=== PATIENT | male | born 1965 | race Caucasian/White ===

== ENCOUNTER 2019-05-13 12:44 | Observation (INO) | payer OTHER ==
[2019-05-13] MEDS ORDERED: METOPROLOL TAR 25 MG TAB ONE (13:01)
[2019-05-13] MEDS ORDERED: ENOXAPARIN 100 MG/ML SYR SQ ONE (13:01)
[2019-05-13] MEDS ORDERED: ASPIRIN 81 MG CHEWABLE TABLET ONE (13:01)
[2019-05-13 13:21] LABS: Absolute Lymphocytes (CBC) 3.1 K/uL (0.7-4.9); Basophils % 1.3 % (0-1.3); Hematocrit 39.3 % (39.6-49.0); Lymphocytes % 36.8 % (15.3-44.8); MPV 8.1 fL (7.6-11.3); RBC Red Blood Cell Count 4.89 M/uL (4.33-5.43)
[2019-05-13 13:28] LABS: Protime INR 0.94
[2019-05-13 13:45] LABS: ALT/SGPT 43 U/L (12-78); AST/SGOT 28 U/L (15-37); Albumin 2.9 g/dL (3.4-5.0); Alkaline Phosphatase 149 U/L (45-117); BUN Blood Urea Nitrogen 31 mg/dL (7-18); Bicarbonate 26 mmol/L (21-32); Bilirubin Direct < 0.1 mg/dL (0-0.2); Bilirubin Total 0.3 mg/dL (0.2-1.0); Lipase 396 U/L (73-393); NT PRO-BNP 394 pg/mL (<125); Potassium 4.8 mmol/L (3.5-5.1); Protein, Total 6.4 g/dL (6.4-8.2); Sodium Level 134 mmol/L (136-145); Troponin (Emerg Dept Use Only) < 0.02 ng/mL (0.0-0.045)
[2019-05-13 13:48] LABS: Glucose Level 439 mg/dL (74-106)
--- NOTE | 2019-05-13 13:50 | RAD REPORT ---
EXAM DESCRIPTION: RAD - Chest Single View - 05/13/2019 1:17 pm CLINICAL HISTORY: Chest pain COMPARISON: None. TECHNIQUE: AP portable chest image was obtained 1307 hours . FINDINGS: Lungs are clear. Heart and vasculature are normal. No measurable pleural effusion and no p neumothorax. No acute bony abnormality seen. No acute aortic findings suspected. IMPRESSION: No acute cardiopulmonary process.
--- NOTE | 2019-05-13 13:56 | RAD REPORT ---
EXAM DESCRIPTION: CT - Ct Stroke Brain Wo Cont - 05/13/2019 1:29 pm CLINICAL HISTORY: Stroke protocol study, left arm numbness and tingling CLINICAL HISTORY: None. TECHNIQUE: Axial 5 millimeter thick images of the head were obtained without IV contrast. All CT scans are performed using dose optimization technique as appropriate and may include automated exposure control or mA/KV adjustment according to patient size. FINDINGS: No intracranial hemorrhage, mass, or cerebral edema. No acute infarction identifiable. No cortical edema or sulcal effacement. Dias matter-white matter differentiation is preserved. Asymmetry is created by head tilt. There is no significant atrophy or chronic ischemic change seen. Visualized portions of the mastoid air cells, paranasal sinuses, and orbits are unremarkable. Findings telephoned to doctor Fung 1:50 p.m.. IMPRESSION: No CT evidence of acute intracranial process.
--- NOTE | 2019-05-13 14:03 | ER ---
Nurse's Notes [facility] Name: Douglas Carrillo Age: 53 yrs Sex: Male : 1965 Arrival Date: 05/13/2019 Time: 12:45 Bed 8 Private MD: Diagnosis: Other chest pain;Type 1 diabetes mellitus-uncontrolled;Essential (primary) hypertension Presentation: 05/13 12:45 Presenting complaint: Patient states: HEAVY SUBSTERNAL CHEST PAIN WITH LUE NUMBNESS AND bp FATIGUE. Transition of care: patient was not received from another setting of care. Onset of symptoms was May 13, 2019 at 12:00. Risk Assessment: Do you want to hurt yourself or someone else? Patient reports no desire to harm self or others. Initial Sepsis Screen: Does the patient meet any 2 criteria? No. Patient's initial sepsis screen is negative. Does the patient have a suspected source of infection? No. Patient's initial sepsis screen is negative. Care prior to arrival: None. 12:45 Method Of Arrival: Wheelchair bp 12:45 Acuity: EMMANUEL 2 bp 13:15 An acute neurological deficit is present. Pre-hospital glucose is not applicable to aa5 this patient. Triage Assessment: 13:10 The onset of the patients symptoms was May 13, 2019 at 12:15. aa5 Stroke Activation: Symptom onset < 3 hours Physician: Stroke Attending; Name: ; Notified At: ; Arrived At: Physician: Chief Stroke Resident; Name: ; Notified At: ; Arrived At: Physician: Stroke Resident; Name: ; Notified At: ; Arrived At: Physician: ED Attending; Name: ; Notified At: ; Arrived At: Physician: ED Resident; Name: ; Notified At: ; Arrived At: Historical: - Allergies: 12:48 Sulfa (Sulfonamide Antibiotics); bp - Home Meds: 12:48 Nifedipine Oral [Active]; carvedilol oral oral [Active]; bp - PMHx: 12:48 Diabetes - IDDM; Hypertension; CVA; bp - PSHx: 13:15 L BKA; R transmetatarsal amputation; aa5 - Immunization history:: Adult Immunizations up to date. - Social history:: Smoking status: Patient/guardian denies using tobacco. - Ebola Screening: : No symptoms or risks identified at this time. - Family history:: not pertinent. Screenin:12 Abuse screen: Denies threats or abuse. Nutritional screening: No deficits noted. aa5 Tuberculosis screening: No symptoms or risk factors identified. Fall Risk Secondary diagnosis (15 points) impaired mobility, IV access (20 points). Total Rodriguez Fall Scale indicates Low Risk Score (25-44 pts). Fall prevention measures have been instituted. Side Rails Up X 2 Placed close to Nursing Station. Assessment: 13:15 VAN Scoring: Arm Drift: Patients demonstrates NO arm weakness. Patient is VAN Negative. aa5 13:15 Patient has been NPO before screening. The patient is alert, and able to follow aa5 commands. The patient does not exhibit slurred or garbled speech. The patient is not exhibiting difficulty speaking. The patient does not exhibit difficulty understanding words. The patient is able to swallow own secretions with no drooling or need for suction. Patient tolerated one teaspoon of water. No drooling, immediate coughing, gurgling, or clearing of the throat was noted. The patient tolerated 90mL of water. No drooling, immediate coughing, gurgling, or clearing of the throat was noted. The patient passed the bedside swallow screening. Oral medications may be given as ordered. Contact Physician for further diet orders. Provider notified of bedside swallow screening results: Delvis Fung MD. 13:15 General: Appears comfortable, Behavior is calm, cooperative. Pain: Complains of pain in aa5 mid-sternal area Pain does not radiate. Pain currently is 5 out of 10 on a pain scale. Quality of pain is described as sharp, Pain began 1 hour ago. Is continuous. Neuro: Level of Consciousness is awake, alert, obeys commands, Oriented to person, place, time, situation, Property Economist are equal bilaterally Moves all extremities. Speech is normal, Facial symmetry appears normal, Pupils are PERRLA, Tingling in left arm Numbness in left arm Since 30 minutes DEPUTY HEAD. . Cardiovascular: Heart tones S1 S2 present Rhythm is regular. Respiratory: Airway is patent Respiratory effort is even, unlabored, Respiratory pattern is regular, symmetrical. GI: Abdomen is round non-distended, Bowel sounds present X 4 quads. Abd is soft and non tender X 4 quads. Patient currently denies nausea, vomiting. : No signs and/or symptoms were reported regarding the genitourinary system. EENT: No signs and/or symptoms were reported regarding the EENT system. Derm: Skin is pink, warm \T\ dry. Musculoskeletal: L BKA noted and R transmetatarsal amputation noted with walking boot to right foot and left leg prosthesis noted. 13:25 Reassessment: back from CT VIA wheelchair. Patient reports that his symptoms seems to ss have improved. Reports mild tingling in R arm and mild Chest pain. 13:58 T-PA (Activase) Screening: Contraindications: Other: CT head negative for intracranial aa5 hemorrhage per Dr. Fung Rapidly improving condition or minor deficit: Yes. 14:30 Reassessment: Patient appears in no apparent distress at this time. No changes from tw2 previously documented assessment. Patient and/or family updated on plan of care and expected duration. Pain level reassessed. Patient is alert, oriented x 3, equal unlabored respirations, skin warm/dry/pink. 15:30 Reassessment: Patient is alert, oriented x 3, equal unlabored respirations, skin aa5 warm/dry/pink. Awaiting room assignment at this time. . Vital Signs: 12:48 BP 128 / 77; Pulse 85; Resp 16; Temp 98; Pulse Ox 97% ; Weight 93.89 kg; Height 6 ft. bp (182.88 cm); 13:50 BP 131 / 75; Pulse 78; Resp 17; Pulse Ox 98% on R/A; tw2 14:29 BP 155 / 121; Pulse 78; Resp 17; Pulse Ox 95% on R/A; tw2 14:45 BP 140 / 78; Pulse 79; Resp 17; Pulse Ox 95% on R/A; tw2 15:45 BP 125 / 76; Pulse 75; Resp 16 S; Temp 98.0(TE); Pulse Ox 97% on R/A; Pain 0/10; aa5 12:48 Body Mass Index 28.07 (93.89 kg, 182.88 cm) bp NIH Stroke Scale Scores: 13:15 NIHSS Score: 1 aa5 ED Course: 12:45 Patient arrived in ED. as 12:47 Triage completed. bp 12:48 Arm band placed on. bp 12:52 Delvis Fung MD is Attending Physician. vin 12:59 Marta Bee, RN is Primary Nurse. aa5 12:59 EKG done, by technical sales representatives. reviewed by Delvis Fung MD. at1 13:10 Patient has correct armband on for positive identification. Bed in low position. Call aa5 light in reach. Side rails up X2. compliance monitor on. Pulse ox on. NIBP on. 13:12 Initial lab(s) drawn, by me, sent to lab. Inserted saline lock: 20 gauge in right aa5 antecubital area, using aseptic technique. Blood collected. 13:17 XRAY Chest (1 view) In Process Unspecified. EDMS 13:30 CT Stroke Brain w/o Contrast In Process Unspecified. EDMS 14:01 Palmer Ho DO is Hospitalizing Provider. vin 16:19 No provider procedures requiring assistance completed. Patient admitted, IV remains in aa5 place. Administered Medications: 13:15 Drug: Aspirin Chewable Tablet 324 mg Route: PO; aa5 14:21 Follow up: Response: No adverse reaction aa5 14:00 Drug: Lopressor 25 mg Route: PO; aa5 14:21 Follow up: Response: No adverse reaction aa5 14:00 Drug: Lovenox 1 mg/kg Route: Sub-Q; Site: right lower abdomen; aa5 14:21 Follow up: Response: No adverse reaction aa5 14:20 Drug: Insulin Regular Human 10 units {Co-Signature: valerie (Pauline Walters RN).} Route: Sub-Q; aa5 Site: right upper arm; 14:21 Drug: Insulin Regular Human 10 units {Co-Signature: valerie (Pauline Walters RN).} Route: IVP; aa5 Site: right antecubital; Point of Care Testing: Blood Glucose: 13:15 Blood Glucose: 435 mg/dL; aa5 Ranges: Outcome: 14:01 Decision to Hospitalize by Provider. vin 16:19 Admitted to Tele accompanied by tech, via wheelchair, with chart. aa5 16:19 Condition: stable 16:19 Instructed on the need for admit, Demonstrated understanding of instructions. 16:22 Patient left the ED. aa5 NIH Stroke Scale - NIH Stroke Score Date: 05/13/2019 Time: 13:15 Total Score = 1 1a. Level of Consciousness (LOC) - 0(Alert) 1b. Level of Consciousness (LOC) (Year \T\ Age) - 0(Both) 1c. LOC Commands (Open \T\ Closes Eyes/Lumber Mover) - 0(Both) 2. Best Gaze (Lateral Gaze Paresis) - 0(Normal) 3. Visual Field Loss - 0(No visual loss) 4. Facial Palsy - 0(Normal) 5a. Left Arm: Motor (10-second hold) - 0(No drift) 5b. Right Arm: Motor (10-second hold) - 0(No drift) 6a. Left Leg: Motor (5-second hold - always test supine) - 0(No drift) 6b. Right Leg: Motor (5-second hold - always test supine) - 0(No drift) 7. Limb Ataxia (finger/nose \T\ heel/gonzalez - test with eyes open) - 0(Absent) 8. Sensory Loss (pinprick arms/legs/face) - 1(Mild to moderate loss) 9. Best Language: Aphasia (description/naming/reading) - 0(No aphasia) 10. Dysarthria (speech clarity - read or repeat words) - 0(Normal) 11. Extinction and Inattention (visual/tactile/auditory/spatial/personal) - 0(No abnormality) Initials: aa5 Signatures: Dispatcher [employer] EDMS Delvis Fung MD MD cha Martinez, Amelia as Calderon, Audri, RN RN aa5 Celeste Villanueva RN RN ss Amina Marion, seed cleaner operator EKG Tat1 Pauline Walters RN RN tw2 Campos Sheffield RN RN bp Pauline Walters RN tw2 Corrections: (The following items were deleted from the chart) 14:03 13:58 T-PA (Activase) Screening: Indications: No evidence of intracranial aa5 hemorrhage or CT of head and no evidence of peripheral hemorrhage or recent CVA: Yes. aa5
--- NOTE | 2019-05-13 14:03 | EDPHYS ---
Physician Documentation [facility] Name: Douglas Carrillo Age: 53 yrs Sex: Male : 1965 Arrival Date: 05/13/2019 Time: 12:45 Bed 8 Private MD: ED Physician Delvis Fung HPI: 05/13 13:58 This 53 yrs old Male presents to ER via Wheelchair with complaints of Chest vin Pain. 13:58 The patient or guardian reports chest pain that is located primarily in the substernal vin area, anterior chest wall, left. Onset: just prior to arrival. The pain radiates to the left arm, Associated signs and symptoms: The patient has no apparent associated signs or symptoms. The chest pain is described as a heaviness, a pressure. Duration: The patient or guardian reports a single episode, that is now resolved. Severity of pain: At its worst the pain was mild moderate in the emergency department the pain has improved mildly. The patient has not experienced similar symptoms in the past. Historical: - Allergies: 12:48 Sulfa (Sulfonamide Antibiotics); bp - Home Meds: 12:48 Nifedipine Oral [Active]; carvedilol oral oral [Active]; bp - PMHx: 12:48 Diabetes - IDDM; Hypertension; CVA; bp - PSHx: 13:15 L BKA; R transmetatarsal amputation; aa5 - Immunization history:: Adult Immunizations up to date. - Social history:: Smoking status: Patient/guardian denies using tobacco. - Ebola Screening: : No symptoms or risks identified at this time. - Family history:: not pertinent. ROS: 13:58 Constitutional: Negative for fever, chills, and weight loss, Eyes: Negative for injury, vin pain, redness, and discharge, ENT: Negative for injury, pain, and discharge, Neck: Negative for injury, pain, and swelling, Respiratory: Negative for shortness of breath, cough, wheezing, and pleuritic chest pain, Abdomen/GI: Negative for abdominal pain, nausea, vomiting, diarrhea, and constipation, : Negative for injury, bleeding, discharge, and swelling, MS/Extremity: Negative for injury and deformity, Skin: Negative for injury, rash, and discoloration, Neuro: Negative for headache, weakness, numbness, tingling, and seizure, Psych: Negative for depression, anxiety, suicide ideation, homicidal ideation, and hallucinations, Allergy/Immunology: Negative for hives, rash, and allergies, Endocrine: Negative for neck swelling, polydipsia, polyuria, polyphagia, and marked weight changes, Hematologic/Lymphatic: Negative for swollen nodes, abnormal bleeding, and unusual bruising. 13:58 Cardiovascular: Positive for chest pain, of the left clavicle and anterior aspect of left upper chest. Exam: 13:58 Constitutional: This is a well developed, well nourished patient who is awake, alert, vin and in no acute distress. Head/Face: Normocephalic, atraumatic. Eyes: Pupils equal round and reactive to light, extra-ocular motions intact. Lids and lashes normal. Conjunctiva and sclera are non-icteric and not injected. Cornea within normal limits. Periorbital areas with no swelling, redness, or edema. ENT: Nares patent. No nasal discharge, no septal abnormalities noted. Tympanic membranes are normal and external auditory canals are clear. Oropharynx with no redness, swelling, or masses, exudates, or evidence of obstruction, uvula midline. Mucous membranes moist. Neck: Trachea midline, no thyromegaly or masses palpated, and no cervical lymphadenopathy. Supple, full range of motion without nuchal rigidity, or vertebral point tenderness. No Meningismus. Chest/axilla: Normal chest wall appearance and motion. Nontender with no deformity. No lesions are appreciated. Cardiovascular: Regular rate and rhythm with a normal S1 and S2. No gallops, murmurs, or rubs. Normal PMI, no JVD. No pulse deficits. Respiratory: Lungs have equal breath sounds bilaterally, clear to auscultation and percussion. No rales, rhonchi or wheezes noted. No increased work of breathing, no retractions or nasal flaring. Abdomen/GI: Soft, non-tender, with normal bowel sounds. No distension or tympany. No guarding or rebound. No evidence of tenderness throughout. Back: No spinal tenderness. No costovertebral tenderness. Full range of motion. Male : Normal genitalia with no discharge or lesions. Skin: Warm, dry with normal turgor. Normal color with no rashes, no lesions, and no evidence of cellulitis. MS/ Extremity: Pulses equal, no cyanosis. Neurovascular intact. Full, normal range of motion. Neuro: Awake and alert, GCS 15, oriented to person, place, time, and situation. Cranial nerves II-XII grossly intact. Motor strength 5/5 in all extremities. Sensory grossly intact. Cerebellar exam normal. Normal gait. Psych: Awake, alert, with orientation to person, place and time. Behavior, mood, and affect are within normal limits. Vital Signs: 12:48 BP 128 / 77; Pulse 85; Resp 16; Temp 98; Pulse Ox 97% ; Weight 93.89 kg; Height 6 ft. bp (182.88 cm); 13:50 BP 131 / 75; Pulse 78; Resp 17; Pulse Ox 98% on R/A; tw2 14:29 BP 155 / 121; Pulse 78; Resp 17; Pulse Ox 95% on R/A; tw2 14:45 BP 140 / 78; Pulse 79; Resp 17; Pulse Ox 95% on R/A; tw2 15:45 BP 125 / 76; Pulse 75; Resp 16 S; Temp 98.0(TE); Pulse Ox 97% on R/A; Pain 0/10; aa5 12:48 Body Mass Index 28.07 (93.89 kg, 182.88 cm) bp NIH Stroke Scale Scores: 13:15 NIHSS Score: 1 aa5 MDM: 12:52 Patient medically screened. [facility] 14:00 Data reviewed: vital signs, nurses notes, lab test result(s), EKG, radiologic studies, [facility] CT scan, plain films. 05/13 12:53 Order name: Basic Metabolic Panel; Complete Time: 13:57 [facility] 05/13 12:53 Order name: CBC with Diff; Complete Time: 13:57 [facility] 05/13 12:53 Order name: LFT's; Complete Time: 13:57 [facility] 05/13 12:53 Order name: Magnesium; Complete Time: 13:57 [facility] 05/13 12:53 Order name: NT PRO-BNP; Complete Time: 13:57 [facility] 05/13 12:53 Order name: PT-INR [facility] 05/13 12:53 Order name: Troponin (emerg Dept Use Only); Complete Time: 13:57 [facility] 05/13 12:53 Order name: XRAY Chest (1 view); Complete Time: 13:57 [facility] 05/13 12:53 Order name: Lipase; Complete Time: 13:57 [facility] 05/13 13:15 Order name: Ptt, Activated 05/13 13:15 Order name: CT Stroke Brain w/o Contrast 05/13 14:03 Order name: Urine Dipstick--Ancillary (enter results) 05/13 12:53 Order name: EKG; Complete Time: 12:54 05/13 12:53 Order name: Cardiac monitoring; Complete Time: 13:00 [facility] 05/13 12:53 Order name: EKG - Nurse/Tech; Complete Time: 13:00 [facility] 05/13 12:53 Order name: IV Saline Lock; Complete Time: 13:25 [facility] 05/13 12:53 Order name: Labs collected and sent; Complete Time: 13:25 [facility] 05/13 12:53 Order name: O2 Per Protocol; Complete Time: 13:00 [facility] 05/13 12:53 Order name: O2 Sat Monitoring; Complete Time: 13:00 [facility] 05/13 12:53 Order name: Urine Dipstick-Ancillary (obtain specimen); Complete Time: 14:00 [facility] 05/13 13:15 Order name: Accucheck; Complete Time: 13:15 05/13 13:15 Order name: NPO; Complete Time: 13:15 05/13 13:15 Order name: Stroke Swallow Screen; Complete Time: 13:15 aa Administered Medications: 13:15 Drug: Aspirin Chewable Tablet 324 mg Route: PO; aa5 14:21 Follow up: Response: No adverse reaction aa5 14:00 Drug: Lopressor 25 mg Route: PO; aa5 14:21 Follow up: Response: No adverse reaction aa5 14:00 Drug: Lovenox 1 mg/kg Route: Sub-Q; Site: right lower abdomen; aa5 14:21 Follow up: Response: No adverse reaction aa5 14:20 Drug: Insulin Regular Human 10 units {Co-Signature: tw2 (Pauline Walters RN).} Route: Sub-Q; aa5 Site: right upper arm; 14:21 Drug: Insulin Regular Human 10 units {Co-Signature: tw2 (Pauline Walters RN).} Route: IVP; aa5 Site: right antecubital; Point of Care Testing: Blood Glucose: 13:15 Blood Glucose: 435 mg/dL; aa5 Ranges: Critical Glucose Levels:Adult <50 mg/dl or >400 mg/dl <40 mg/dl or >180 mg/dl Disposition: 05/13/19 14:01 Hospitalization ordered by Palmer Ho for Inpatient Admission. Preliminary diagnosis are Other chest pain, Type 1 diabetes mellitus - uncontrolled, Essential (primary) hypertension. - Bed requested for Telemetry/MedSurg (Inpatient). - Status is Inpatient Admission. aa5 - Condition is Fair. - Problem is new. - Symptoms have improved. UTI on Admission? No NIH Stroke Scale - NIH Stroke Score Date: 05/13/2019 Time: 13:15 Total Score = 1 1a. Level of Consciousness (LOC) - 0(Alert) 1b. Level of Consciousness (LOC) (Year \T\ Age) - 0(Both) 1c. LOC Commands (Open \T\ Closes Eyes/Fisher Oyster) - 0(Both) 2. Best Gaze (Lateral Gaze Paresis) - 0(Normal) 3. Visual Field Loss - 0(No visual loss) 4. Facial Palsy - 0(Normal) 5a. Left Arm: Motor (10-second hold) - 0(No drift) 5b. Right Arm: Motor (10-second hold) - 0(No drift) 6a. Left Leg: Motor (5-second hold - always test supine) - 0(No drift) 6b. Right Leg: Motor (5-second hold - always test supine) - 0(No drift) 7. Limb Ataxia (finger/nose \T\ heel/gonzalez - test with eyes open) - 0(Absent) 8. Sensory Loss (pinprick arms/legs/face) - 1(Mild to moderate loss) 9. Best Language: Aphasia (description/naming/reading) - 0(No aphasia) 10. Dysarthria (speech clarity - read or repeat words) - 0(Normal) 11. Extinction and Inattention (visual/tactile/auditory/spatial/personal) - 0(No abnormality) Initials: aa5 Signatures: Dispatcher [employer] Cassidy Soriano RN RN dw Anderson, Corey, MD MD cha Calderon, Audri RN RN aa5 Campos Sheffield RN RN bp Pauline Walters RN tw2 Corrections: (The following items were deleted from the chart) 15:38 14:01 Hospitalization Ordered by Palmer Ho DO for Inpatient Admission. [email or web address] Preliminary diagnosis is Other chest pain; Type 1 diabetes mellitus - uncontrolled; Essential (primary) hypertension. Bed requested for Telemetry/MedSurg (Inpatient). Status is Inpatient Admission. Condition is Fair. Problem is new. Symptoms have improved. UTI on Admission? No. vin 16:22 15:38 05/13/2019 14:01 Hospitalization Ordered by Palmer Ho DO for aa5 Inpatient Admission. Preliminary diagnosis is Other chest pain; Type 1 diabetes mellitus - uncontrolled; Essential (primary) hypertension. Bed requested for Telemetry/MedSurg (Inpatient). Status is Inpatient Admission. Condition is Fair. Problem is new. Symptoms have improved. UTI on Admission? No. dw
[2019-05-13] MEDS ORDERED: INSULIN -REGULAR HUMAN 50 UNIT/0.5 ML ML ONE (14:17)
[2019-05-13 14:34] LABS: Urine Blood NEGATIVE (NEG); Urine Glucose 2+ (NEG); Urine Protein 2+ (NEG)
--- NOTE | 2019-05-13 15:15 | P.HP ---
Certification for Inpatient Patient admitted to: Observation With expected LOS: <2 Midnights Patient will require the following post-hospital care: None Practitioner: I am a practitioner with admitting privileges, knowledge of patient current condition, hospital course, and medical plan of care. Services: Services provided to patient in accordance with Admission requirements found in Title 42 Section 412.3 of the Code of Federal Regulations Patient History Date of Service: 05/13/19 Primary Care Provider: None; Cardiology-Dr. Bullock Reason for admission: Chest pain History of Present Illness: 53-year-old male presented to the emergency room with multiple complaints including chest pain, left arm numbness, and back pain. Patient with history of CAD, TIA/CVA, diabetes mellitus type 1 insulin-dependent , hypertension, hyperlipidemia. Patient presented with chest tightness and heaviness to the substernal region. This occurred today. It was associated with some numbness to the left elbow to hand region. Patient also reported some back pain. Patient denied any shortness of breath, nausea, vomiting. Patient has been noting increased fatigue. Patient normally sees cardiology in [facility]. Last cardiac evaluation was last year which was unremarkable. Over the past several months the patient has been evaluated and treated by orthopedics. Patient has had multiple surgeries to his right lower extremity. Patient has a left below-knee amputation and chronic wound to the right knee. In the ER patient was evaluated. Initial cardiac enzymes unremarkable. CT brain showed no acute CVA. Chest x-ray unremarkable. White count 8.4, hemoglobin 13. Sodium 134, potassium 4.8. BUN 31, creatinine 1.58 with a GFR 46. Glucose above 400. Patient was admitted for further evaluation. When I saw the patient the ER, patient preferred to be transferred to his yeast stacker at [facility].. ER contacted cardiology. Cardiology recommends to monitor cardiac enzymes over the next 24 hr. If unremarkable patient can be discharged and follow up with cardiology as an outpatient. Patient in agreement. Home medications list reviewed: Yes - Past Medical/Surgical History Diabetic: Yes -: Diabetes mellitus type 1 -: Chronic renal disease, stage III -: CAD -: Hypertension -: Hyperlipidemia -: PVD -: History TIA/CVA -: Appendectomy -: Left below-knee amputation -: Multiple surgeries to the right lower extremity Psychosocial/ Personal History: Patient is , lives at home. - Family History Family History: Reviewed- Non-Contributory - Social History Smoking Status: Never smoker Alcohol use: No CD- Drugs: No Caffeine use: Yes Place of Residence: Home Review of Systems General: Weakness, As per HPI Eyes: Unremarkable ENT: Unremarkable Respiratory: As per HPI Cardiovascular: Chest Pain, As per HPI Gastrointestinal: Unremarkable Genitourinary: Unremarkable Musculoskeletal: Back Pain, As per HPI Integumentary: Unremarkable Neurological: Numbness, As per HPI Lymphatics: Unremarkable Physical Examination - Physical Exam General: Alert, In no apparent distress, Oriented x3, Cooperative HEENT: Atraumatic, Normocephalic, PERRLA, Mucous membr. moist/pink Neck: Supple Respiratory: Clear to auscultation bilaterally, Normal air movement Cardiovascular: Normal pulses, Regular rate/rhythm Gastrointestinal: Normal bowel sounds, Soft and benign, Non-distended, No tenderness, No masses, No rebound, No guarding Musculoskeletal: No erythema, No tenderness, No warmth Integumentary: Other (Left below-knee amputation. Right foot with boot. ) Neurological: Normal speech, Normal strength at 5/5 x4 extr, Normal tone, Normal affect - Studies Laboratory Data (last 24 hrs) 05/13/19 13:10: APTT 34.7 05/13/19 13:10: PT 11.1, INR 0.94 05/13/19 13:10: WBC 8.4, Hgb 13.0 L, Hct 39.3 L, Plt Count 319 05/13/19 13:10: Sodium 134 L, Potassium 4.8, BUN 31 H, Creatinine 1.58 H, Glucose 439 H*, Magnesium 2.0, Total Bilirubin 0.3, AST 28, ALT 43, Alkaline Phosphatase 149 H, Lipase 396 H Assessment and Plan - Plan Assessment: Chest pain with history of CAD HTN DM Type 1 with insulin pump Hyperlipidemia PVD Hx of CVA/TIA Plan: Chest pain with history of CAD: Patient will be admitted for further evaluation and treatment. Will continue with cardiac enzymes. As recommended by his yeast stacker if cardiac enzymes unremarkable after 2 more sets then the patient can be discharged home and follow up with cardiology for further evaluation and workup. Case discussed with patient. Patient agrees with current plan of care. Will start aspirin, DVT prophylaxis-Lovenox. Will provide Lipitor. Will need to obtain home medications and restart. Will provide IV pain medication for now. Likely discharge tomorrow morning if workup the norm HTN: Obtain and restart home medication. DM Type 1 with insulin pump: Patient sees Endocrinology. Will continue with his insulin pump. Patient to manage his insulin. Hyperlipidemia: Will check fasting lipid panel. Will continue with Lipitor. PVD: Will start aspirin. Will need to obtain home medication. Hx of CVA/TIA: CT head unremarkable. Will continue with aspirin and DVT prophylaxis-Lovenox. Discharge Plan: Home Plan to discharge in: 24 Hours - Advance Directives Does patient have a Living Will: No Does patient have a Durable POA for Healthcare: No - Code Status/Comfort Care Code Status Assessed: Yes (Patient is Full code) Time Spent Managing Pts Care (In Minutes): 55
--- NOTE | 2019-05-13 15:51 | EKG ---
Test Date: 2019-05-13 Test Time: 12:45:33 Senior Compensation Consultant: [employer] MEASUREMENT RESULTS: Intervals: Rate: 84 WA: 124 QRSD: 84 QT: 360 QTc: 425 [place]: P: 30 WA: 124 QRS: 23 T: 53 INTERPRETIVE STATEMENTS: Normal sinus rhythm Normal ECG Compared to ECG 01/03/1995 18:23:00 Sinus tachycardia no longer present Electronically Signed On 05-13-19 15:50:04 CDT by Darell Solitario
[2019-05-13] MEDS ORDERED: NITROGLYCERIN 0.4 MG/TAB SL PRN (16:30)
[2019-05-13] MEDS ORDERED: ONDANSETRON 4 MG/2 ML VIAL IV PRN (16:30)
[2019-05-13] MEDS ORDERED: ACETAMINOPHEN 500 MG TAB PO PRN (16:30)
[2019-05-13 17:06] VITALS: BMI 28.0
[2019-05-13] MEDS: HYDRALAZINE HCL 20 MG/ML VIAL IV PRN (17:43)
[2019-05-13] MEDS ORDERED: ATORVASTATIN 40 MG TAB PO SCH (21:00)
[2019-05-13] MEDS ORDERED: CARVEDILOL 6.25 MG TAB PO SCH (21:00)
[2019-05-13 21:40] LABS: CKMB Creatine Kinase MB 3.4 ng/mL (0.3-3.6); Creatine Phosphokinase 140 U/L (39-308); Troponin I < 0.02 ng/mL (0.0-0.045)
[2019-05-14] MEDS: HYDRALAZINE HCL 20 MG/ML VIAL IV PRN (00:25)
[2019-05-14 05:23] VITALS: TEMP 97.9
[2019-05-14 05:53] LABS: BUN Blood Urea Nitrogen 28 mg/dL (7-18); Bicarbonate 26 mmol/L (21-32); CKMB Creatine Kinase MB 2.5 ng/mL (0.3-3.6); Creatine Phosphokinase 104 U/L (39-308); Glucose Level 174 mg/dL (74-106); HDL Cholesterol 34 mg/dL (40-60); LDL Cholesterol, Calculated 45 (<130); Magnesium 2.1 mg/dL (1.8-2.4); Potassium 3.9 mmol/L (3.5-5.1); Sodium Level 138 mmol/L (136-145); Troponin I < 0.02 ng/mL (0.0-0.045)
[2019-05-14] MEDS: ENOXAPARIN 40 MG/0.4 ML SQ SCH ×2 (08:14→08:21)
[2019-05-14] MEDS: POTASSIUM CL SA 10 MEQ TAB PO ONE ×2 (08:14→08:21)
--- NOTE | 2019-05-14 08:22 | P.DS ---
Admission Date: 05/13/19 Discharge Date: 05/14/19 Primary Care Provider: None; Cardiology-Dr. Bullock Disposition: ROUTINE DISCHARGE Discharge Condition: GOOD Reason for Admission: Chest pain Consultations: None Procedures: CT scan: Medical Problem List: Chest pain with history of CAD HTN DM Type 1 with insulin pump Hyperlipidemia PVD Hx of CVA/TIA Chronic renal disease, stage III GERD Brief History of Present Illness: 53-year-old male presented to the emergency room with multiple complaints including chest pain, left arm numbness, and back pain. Patient with history of CAD, TIA/CVA, diabetes mellitus type 1 insulin-dependent , hypertension, hyperlipidemia. Patient presented with chest tightness and heaviness to the substernal region. This occurred today. It was associated with some numbness to the left elbow to hand region. Patient also reported some back pain. Patient denied any shortness of breath, nausea, vomiting. Patient has been noting increased fatigue. Patient normally sees cardiology in [place]. Last cardiac evaluation was last year which was unremarkable. Over the past several months the patient has been evaluated and treated by orthopedics. Patient has had multiple surgeries to his right lower extremity. Patient has a left below-knee amputation and chronic wound to the right knee. In the ER patient was evaluated. Initial cardiac enzymes unremarkable. CT brain showed no acute CVA. Chest x-ray unremarkable. White count 8.4, hemoglobin 13. Sodium 134, potassium 4.8. BUN 31, creatinine 1.58 with a GFR 46. Glucose above 400. Patient was admitted for further evaluation. When I saw the patient the ER, patient preferred to be transferred to his manager gift at [facility]. ER contacted cardiology. Cardiology recommends to monitor cardiac enzymes over the next 24 hr. If unremarkable patient can be discharged and follow up with cardiology as an outpatient. Patient in agreement. Hospital Course: Patient presented with chest pain. Patient with history of CAD. Case discussed with his manager gift by the ER physician. Patient remain in the hospital with close monitoring of cardiac enzymes. Cardiac enzymes have been unremarkable x3. Lipid panel within normal range. No significant EKG changes. Patient without chest pain at discharge. Patient will be discharged home. Patient may continue with aspirin 81 mg daily, nifedipine ER 90 mg daily, carvedilol 12.5 mg 1 pill twice daily, and Lipitor 20 mg daily. Recommend for patient to follow up with his manager gift in [place] to follow up this hospitalization. Patient may require further outpatient workup. Patient with hypertension. This has remained stable. At discharge he will continue with nifedipine ER 90 mg daily and carvedilol 12.5 mg 1 pill twice daily. Recommend to maintain blood pressures less 150/80. Further adjustment can be done by his manager gift. Patient with diabetes mellitus type 1 with insulin pump. Blood pressures initially elevated, now within normal range. Patient sees and follows Endocrinology closely. At discharge he will continue with his insulin pump at a basal rate. Patient gives extra insulin with meals. Recommend to maintain blood sugars less 140 fasting and less than 200 after meals. Further adjustment can be done by his senior php web developer. Recommend follow up with Endocrinology in 1-2 weeks to monitor his progress. Patient with hyperlipidemia. Lipid panel remained stable. At discharge he will continue with Lipitor 20 mg daily. Patient with history of PVD and CVA/TIA. Will recommend to continue with aspirin 81 mg daily. Patient with chronic wound to the right lower extremity and left below-knee amputation. Patient continues to follow with orthopedics closely. Patient on antibiotic therapy by orthopedics. Patient will continue with doxycycline 100 mg daily. Patient may have underlying GERD. At discharge will recommend to start Pepcid 20 mg 1 pill twice daily. Patient may benefit with GI evaluation as an outpatient if cardiac workup unremarkable. Patient with chronic renal disease stage III. Recommend to recheck lab-BMP in 1 -2 weeks to monitor his progress. Recommend no further use of nonsteroidal anti -inflammatories. Future medications will need to be renally dosed. Vital Signs/Physical Exam: Temp Pulse Resp BP Pulse Ox 97.9 F 81 18 164/75 H 97 05/14/19 04:00 05/14/19 04:00 05/14/19 04:00 05/14/19 04:00 05/14/19 04:00 General: Alert, In no apparent distress, Oriented x3, Cooperative HEENT: Atraumatic Neck: Supple Respiratory: Clear to auscultation bilaterally, Normal air movement Cardiovascular: Normal pulses, Regular rate/rhythm Gastrointestinal: Normal bowel sounds, Soft and benign, Non-distended, No tenderness, No masses, No rebound, No guarding Musculoskeletal: No erythema, No tenderness, No warmth Integumentary: Other (Patient with left below-knee amputation.) Neurological: Normal speech, Normal strength at 5/5 x4 extr, Normal tone, Normal affect Laboratory Data at Discharge: WBC 8.4 K/uL (4.3-10.9) 05/13/19 13:10 Hgb 13.0 g/dL (13.6-17.9) L 05/13/19 13:10 Hct 39.3 % (39.6-49.0) L 05/13/19 13:10 Plt Count 319 K/uL (152-406) 05/13/19 13:10 PT 11.1 SECONDS (9.5-12.5) 05/13/19 13:10 INR 0.94 05/13/19 13:10 APTT 34.7 SECONDS (24.3-36.9) 05/13/19 13:10 Sodium 138 mmol/L (136-145) 05/14/19 05:16 Potassium 3.9 mmol/L (3.5-5.1) 05/14/19 05:16 BUN 28 mg/dL (7-18) H 05/14/19 05:16 Creatinine 1.36 mg/dL (0.55-1.3) H 05/14/19 05:16 Glucose 174 mg/dL (74-106) H 05/14/19 05:16 Magnesium 2.1 mg/dL (1.8-2.4) 05/14/19 05:16 Total Bilirubin 0.3 mg/dL (0.2-1.0) 05/13/19 13:10 AST 28 U/L (15-37) 05/13/19 13:10 ALT 43 U/L (12-78) 05/13/19 13:10 Alkaline Phosphatase 149 U/L (45-117) H 05/13/19 13:10 Troponin I < 0.02 ng/mL (0.0-0.045) 05/14/19 05:16 Triglycerides 123 mg/dL (<150) 05/14/19 05:16 Cholesterol 104 mg/dL (<200) 05/14/19 05:16 HDL Cholesterol 34 mg/dL (40-60) L 05/14/19 05:16 Cholesterol/HDL Ratio 3.06 05/14/19 05:16 Lipase 396 U/L (73-393) H 05/13/19 13:10 Home Medications: Atorvastatin Calcium [Lipitor*] 20 mg PO BEDTIME 05/13/19 Carvedilol 1 tab PO BID 05/13/19 Doxycycline Hyclate 1 tab PO DAILY 05/13/19 Nifedipine [Nifedipine ER] 1 tab PO DAILY 05/13/19 Aspirin [Aspirin EC 81 MG] 81 mg PO DAILY #90 tablet. 05/14/19 Famotidine [Pepcid] 20 mg PO BID #60 tab 05/14/19 New Medications: Aspirin [Aspirin EC 81 MG] 81 mg PO DAILY #90 tablet. Famotidine [Pepcid] 20 mg PO BID #60 tab Patient Discharge Instructions: 1. Recommend to establish care with a PCP to follow up this hospitalization. 2. Patient presented with chest pain. Patient with history of CAD. Case discussed with his manager gift by the ER physician. Patient remain in the hospital with close monitoring of cardiac enzymes. Cardiac enzymes have been unremarkable x3. Lipid panel within normal range. No significant EKG changes. Patient without chest pain at discharge. Patient will be discharged home. Patient may continue with aspirin 81 mg daily, nifedipine ER 90 mg daily, carvedilol 12.5 mg 1 pill twice daily, and Lipitor 20 mg daily. Recommend for patient to follow up with his manager gift in [place] to follow up this hospitalization. Patient may require further outpatient workup. 3. Patient with hypertension. This has remained stable. At discharge he will continue with nifedipine ER 90 mg daily and carvedilol 12.5 mg 1 pill twice daily. Recommend to maintain blood pressures less 150/80. Further adjustment can be done by his manager gift. 4. Patient with diabetes mellitus type 1 with insulin pump. Blood pressures initially elevated , now within normal range. Patient sees and follows Endocrinology closely. At discharge he will continue with his insulin pump at a basal rate. Patient gives extra insulin with meals. Recommend to maintain blood sugars less 140 fasting and less than 200 after meals. Further adjustment can be done by his senior php web developer. Recommend follow up with Endocrinology in 1-2 weeks to monitor his progress. 5. Patient with hyperlipidemia. Lipid panel remained stable. At discharge he will continue with Lipitor 20 mg daily. 6. Patient with history of PVD and CVA/TIA. Will recommend to continue with aspirin 81 mg daily. 7. Patient with chronic wound to the right lower extremity and left below-knee amputation. Patient continues to follow with orthopedics closely. Patient on antibiotic therapy by orthopedics. Patient will continue with doxycycline 100 mg daily. 8. Patient may have underlying GERD. At discharge will recommend to start Pepcid 20 mg 1 pill twice daily. Patient may benefit with GI evaluation as an outpatient if cardiac workup unremarkable. 9. Patient with chronic renal disease stage III. Recommend to recheck lab-BMP in 1 -2 weeks to monitor his progress. Recommend no further use of nonsteroidal anti -inflammatories. Future medications will need to be renally dosed. Diet: AHA Activity: Fall precautions Time spent managing pt's care (in minutes): 55
[2019-05-14 08:23] VITALS: BP 158/84
[2019-05-14] MEDS ORDERED: NIFEDIPINE PO SCH (09:00)
[2019-05-14] MEDS ORDERED: DOXYCYCLINE HYCLATE PO SCH (09:00)
[2019-05-14] MEDS ORDERED: ASPIRIN EC 81 MG TAB PO SCH (09:00)
[2019-05-14] MEDS ORDERED: CARVEDILOL 12.5 MG TAB PO SCH (09:00)
[2019-05-14 09:04] VITALS: O2SAT 96
--- OUTSIDE RECORDS SUMMARY | 2019-06-08 19:57 | XMS REPORT | Summary of Care ---
:1965 Author Organization [facility] - [facility] Address [address] [place] [id number] Care Team Providers Name Role Phone Pcp, Patient Does Not Have A Primary Care Provider Reason for Visit Reason Comments Animal Bite Encounter Details Date Type Department Care Team Description 04/18/2019 Emergency ADC-Emergency Migel, Quinton Beckett III, Dog bite, initial Department PA encounter (Primary Dx) [address] [facility] 132 [facility] [place] [address] [place] [address] [phone] Allergies Active Allergy Reactions Severity Noted Date Comments Sulfa (Sulfonamide Antibiotics) Hives 04/18/2019 documented as of this encounter (statuses as of 04/18/2019) Medications Medication Sig Dispensed Refills Start Date End Date Status THINPRO INSULIN USE 1 SYRINGE TO 100 Syringe 3 11/20/2015 Active SYRINGE 1 mL 31 x INJECT INSULIN 3 /8" Syrg TIMES DAILY DIRECTED (Bucky RUBI) aspirin 325 mg Take 325 mg by mouth 0 Active tablet daily. insulin Use 5 times daily 450 Each 3 02/08/2016 Active syringe-needle U-100 with insulin 1 ml (INSULIN SYRINGE) 1 mL 29 gauge x 1/2" SyrgIndications: Type 1 diabetes mellitus with complication, uncontrolled Blood Pressure Use as directed 1 Kit 1 02/08/2016 Active Monitor (BLOOD PRESSURE KIT) Kit atorvastatin Take 1 tablet by 90 tablet 1 02/12/2016 Active (LIPITOR) 20 mg mouth at bedtime. tablet insulin regular Per patients sliding 2 Vial 5 03/22/2016 Active human (HUMULIN R) scale, max dose per 100 unit/mL day is 60 units. injectionIndications : Type 1 diabetes mellitus, uncontrolled terbinafine HCl Take 1 tablet by 14 tablet 0 07/04/2016 Active (LAMISIL) 250 mg mouth daily. tablet tiZANidine 4 mg Take 1 tablet by 40 tablet 2 08/26/2016 Active tablet mouth every 8 (eight) hours as needed for Pain (scale 4-6). HYDROcodone-acetamin Take 1 tablet by 100 tablet 0 08/26/2016 Active ophen 7.5-325 mg per mouth every 6 (six) tablet hours as needed for Pain. blood sugar Use to test blood 300 Strip 3 01/24/2017 Active diagnostic sugars TID, DX (ACCU-CHEK SMARTVIEW 250.91 TEST STRIP) stripIndications: Type 1 diabetes mellitus with complications diphenhydrAMINE Take 1 tablet by 30 tablet 0 07/01/2017 Active (BENADRYL ALLERGY) mouth every 4 (four) 25 mg tablet hours as needed for Allergies. HUMULIN N 100 INJECT 40 UNITS 3 Vial 0 10/30/2017 Active unit/mL injection UNDER THE SKIN TWICE DAILY BEFORE BREAKFAST AND SUPPER telmisartan-hydrochl Take 1 tablet by 60 tablet 3 12/18/2017 Active orothiazide 40-12.5 mouth 2 (two) times mg per tablet daily. carvedilol 25 mg Take 1 tablet by 60 tablet 3 12/18/2017 Active tablet mouth 2 (two) times daily with meals. NIFEdipine CC 90 mg Take 1 tablet by 30 tablet 5 12/18/2017 Active SR mouth daily. Please tabletIndications: substitute generic Essential if possible hypertension GLUCAGON EMERGENCY INJECT 1 MG 1 Each 5 11/05/2018 Active KIT, HUMAN, 1 mg INTRAMUSCULARLY injectionIndications NEEDED (FOR : Type 1 diabetes HYPOGLYCEMIA) mellitus with complication, uncontrolled documented as of this encounter (statuses as of 04/18/2019) Active Problems Problem Noted Date Hypoglycemic coma 03/20/2016 Type 1 diabetes mellitus with complication, uncontrolled 12/22/2015 Callus of foot 12/22/2015 Essential hypertension 12/22/2015 Diabetes mellitus type 1 documented as of this encounter (statuses as of 04/18/2019) Resolved Problems Problem Noted Date Resolved Date Hypertension 12/22/2015 documented as of this encounter (statuses as of 04/18/2019) Social History Tobacco Use Types Packs/Day Years Used Date Never Smoker Smokeless Tobacco: Never Used Alcohol Use Drinks/Week oz/Week Comments Yes social, 1 drink Sex Assigned at Date Recorded Not on file Job Start Date Occupation Industry Not on file Not on file Not on file Travel History Travel Start Travel End No recent travel history available. documented as of this encounter Last Filed Vital Signs Vital Sign Reading Time Taken Comments Blood Pressure 161/91 04/18/2019 5:31 PM CDT Pulse 95 04/18/2019 5:31 PM CDT Temperature 36.9 C (98.5 F) 04/18/2019 5:31 PM CDT Respiratory Rate 16 04/18/2019 5:31 PM CDT Oxygen Saturation 98% 04/18/2019 5:31 PM CDT Inhaled Oxygen Concentration - - Weight 90.7 kg (200 lb) 04/18/2019 5:31 PM CDT Height 182.9 cm (6') 04/18/2019 5:31 PM CDT Body Mass Index 27.12 04/18/2019 5:31 PM CDT documented in this encounter Discharge Instructions Quinton Thompson III, PA - 04/18/2019 @@@@@@@@@@@@@@@@@@@@@@@@@@@@@@@@@@@@@@@@@@@@@@@@@@@@@ [facility] RETURN TO WORK / SCHOOL EXCUSE Douglas Carrillo WAS SEEN IN THE ER AND DISCHARGED 04/18/2019 TODAY, 6:08 PM & May return to Work / School / Incarceration on 04/19/19 with No limitations unless indicated below. ___The following limitations apply until pt is seen by Physician and cleared to return to normal activity. ___ Light duty ___ No Sports ___ No work ___ Do not return until fever free for 24 hours. ___ No school [facility] [address] [place] [address] [place] [address] If you are unprepared to return to work tomorrow due to pain please give this note to your employer and make a follow up appointment with your MD for further evaluation and limitations. ### The patient may have been given Narcotic pain medications during their stay in the ED that may show up on a Drug Screen. The hospital discharge paper work will identify these medications. @@@@@@@@@@@@@@@@@@@@@@@@@@@@@@@@@@@@@@@@@@@@@@@@@@@@@ Thank you for trusting us with your care. The emergency room is the first stop in the medical management of your complaint . Our primary pupose is to identify life threatening emergancies and to rapidly address those issues. We are releasing you today after evaluation for emergency or life threatening problems related to your complaint. At this time we are comfortable that your condition is stable enough to go home, take oral medications and follow up for further care. If you can't afford a doctor OR MEDICATIONS consider [facility], [address] [place] [address]; [phone] Medications [facility] WILL SHOW YOU WHERE YOU CAN GET YOUR MEDICATIONS CHEAPEST. 1. Call your doctor and let them know you were seen for ICD-10-CM ICD-9-CM 1. Dog bite, initial encounter W54.0XXA 879.8 E906.0 2. Schedule a follow up within 3 days of your ER visit. 3. Take your prescriptions to the pharmacy and get them filled today. 4. Take the medications as prescribed and until completed. 5. You have been referred for further care 6. You may need additional tests Your doctors will help you figure out what you need and how to get them done. 7. Please read all paperwork provided to you. Additional instructions See Attached AttachmentsThe following attachments cannot be sent through Care Everywhere.Bite , Animal (General) ([place])Bite, Dog ([place])documented in this encounter Plan of Treatment Name Type Priority Associated Diagnoses Date/Time Laceration Repair PROCEDURES Routine Dog bite, initial 04/18/2019 6:04 PM CDT encounter Health Maintenance Due Date Last Done Comments PNEUMOCOCCAL 0-64 YEARS COMBINED 1972 SERIES (1 of 1 - PPSV23) EYE EXAM 1976 URINE MICROALBUMIN 1976 FOOT EXAM 1984 DTaP,Tdap,and Td Vaccines (1 - 1985 Tdap) HgA1C 06/23/2016 12/22/2015 COLONOSCOPY 2016 Zoster Recombinant Vaccine 2016 (SHINGRIX) (1 of 2) LDL-C 02/07/2017 02/08/2016 CREATININE (SERUM) 03/28/2019 03/28/2018, 05/15/2017, 03/22/2016, Additional history exists INFLUENZA VACCINE (Retired 03/31/2019 version) documented as of this encounter Procedures Procedure Name Priority Date/Time Associated Diagnosis Comments ED LACERATION REPAIR Routine 04/18/2019 6:04 PM Dog bite, initial CDT encounter NOTICE OF PRIVACY Routine 04/18/2019 5:18 PM PRACTICES CDT CONSENT/REFUSAL FOR Routine 04/18/2019 5:17 PM DIAGNOSIS AND TREATMENT CDT documented in this encounter Results Not on filedocumented in this encounter Visit Diagnoses Diagnosis Dog bite, initial encounter - Primary documented in this encounter Insurance Payer Benefit Plan / Subscriber ID Effective Dates Phone Address Type Group MEDICARE MEDICARE PART xxxxxxxxxx 2017-[place] [phone] [address] [id number] [place] [id number] documented as of this encounter
--- OUTSIDE RECORDS SUMMARY | 2019-06-08 19:57 | XMS REPORT ---
:1965 [facility] Address [address] [place] [address] [address] [place] [id number] Care Team Providers Name Role Phone Unavailable Unavailable Unavailable Problems This patient has no known problems. Allergies, Adverse Reactions, Alerts This patient has no known allergies or adverse reactions. Medications This patient has no known medications. Encounters Start End Encounter Admission Attending Care Care Encounter Date/Time Date/Time Type Type Clinicians Facility Department ID 2019-02-26 Inpatient U [facility] MED [id number] 16:12:00
== END 2019-05-14 10:00 | disposition home or self-care (01) ==
LOC: ER 12:44 → ERHOLD 15:03 → 4TH 16:01
PROVIDERS: ADMIT Family Medicine; ATTEND Family Medicine
DX: R07.9 Chest pain, unspecified (principal); I25.10 Atherosclerotic heart disease of native coronary artery without angina pectoris; I12.9 Hypertensive chronic kidney disease with stage 1 through stage 4 chronic kidney disease, or unspecified chronic kidney disease; E10.22 Type 1 diabetes mellitus with diabetic chronic kidney disease; N18.3 Chronic kidney disease, stage 3 (moderate); Z96.41 Presence of insulin pump (external) (internal); E78.5 Hyperlipidemia, unspecified; K21.9 Gastro-esophageal reflux disease without esophagitis; Z86.73 Personal history of transient ischemic attack (TIA), and cerebral infarction without residual deficits; Z89.512 Acquired absence of left leg below knee
CPT/HCPCS: 93005; 85025; 80048 ×2; 36415 ×2; 83735 ×2; 82550 ×2; 85610; 80061; 82962 ×6; 80076; 85730; 81003; 84484 ×3; 82553 ×2; 83690; 83880; 70450; 71045; 96372; 96374; 99285; J0360 ×2; J1650; G0378 ×3

== ENCOUNTER 2022-11-29 20:17 | Emergency (ER) | payer BC ==
[2022-11-29 21:13] LABS: Absolute Lymphocytes (CBC) 1.3 K/uL (0.7-4.9); Hematocrit 38.7 % (39.6-49.0); Lymphocytes % 7.5 % (15.3-44.8); MCV 80.2 fL (80-100); MPV 8.7 fL (7.6-11.3); RBC Red Blood Cell Count 4.83 M/uL (4.33-5.43)
[2022-11-29 21:17] LABS: Protime INR 0.94
--- NOTE | 2022-11-29 21:24 | RAD REPORT ---
EXAM DESCRIPTION: RAD - Chest Single View - 11/29/2022 9:17 pm CLINICAL HISTORY: COUGH COMPARISON: Abdomen 1 View (KUB) dated 10/31/2022; Chest Single View dated 10/25/2022; Chest Single Vie w dated 10/25/2022; Chest Single View dated 10/21/2022 FINDINGS: Lines: Tracheostomy. Lungs: No evidence of edema or pneumonia. Pleural: No significant pleural effusions or pneumothorax. Cardiac: The heart size is within normal limits. Mediastinum: Within normal limits. Bones: No acute fractures. Other: None IMPRESSION: No acute cardiopulmonary disease.
[2022-11-29 21:33] LABS: Albumin 2.7 g/dL (3.4-5.0); Bilirubin Total 0.2 mg/dL (0.2-1.0); Potassium 4.6 mEq/L (3.5-5.1); Protein, Total 9.2 g/dL (6.4-8.2); Troponin High Sensitivity 14.4 pg/mL (<58.9)
[2022-11-29] MEDS ORDERED: ONDANSETRON 4 MG/2 ML VIAL ONE (21:34)
[2022-11-29] MEDS ORDERED: NA CHLORIDE 0.9% 500 ML ONE (21:34)
[2022-11-29] MEDS ORDERED: NA CHLORIDE 0.9% 100 ML ONE (21:34)
[2022-11-29] MEDS ORDERED: AMPICILLIN/SULBACTAM 3GM/VIAL ONE (21:34)
--- NOTE | 2022-11-29 22:25 | RAD REPORT ---
EXAM DESCRIPTION: CTAbdomen Pelvis Wo Contrast - 11/29/2022 10:04 pm CLINICAL HISTORY: vomiting COMPARISON: Chest Abd Pelvis Wo Con dated 10/21/2022; Chest Single View dated 11/29/2022 TECHNIQUE: CT of the abdomen and pelvis was performed. All CT scans are performed using dose optimization technique as appropriate and may include automated exposure control or mA/KV adjustment according to patient size. FINDINGS: Lower chest: Widespread ground-glass opacities present in the lower lungs. Trace pericardi al effusion. Circumferential thickened distal esophagus. Liver: No acute abnormality or suspicious lesions. Biliary: Cholelithiasis. No CT is of acute cholecystitis. Stomach: Gastrostomy tube. Gaseous distention of the stomach. Duodenum: No significant focal abnormality. Pancreas: Atrophic pancreas. Spleen: No significant abnormality. Adrenal: No suspicious lesions. Kidney/ureter: No hydronephrosis. No renal calculi. Retroperitoneum: No retroperitoneal adenopathy. Vascular: No aneurysm. Bowel: No significant focal abnormality. Peritoneum: Mild inguinal adenopathy which is likely reactive. Bladder: Simmons catheter within the bladder. Air within the nondependent portions the bladder presumab ly due to instrumentation. Reproductive: No adnexal masses. Bones: Moderate to severe degenerative changes are present L5-S1 Other: n/a IMPRESSION: 1. No acute intra-abdominal abnormality. 2. Nonspecific ground-glass opacities in the lower lungs likely reflecting aspiration pneumonitis. 3. Gaseous distension of the stomach with gastrostomy tube in place.
--- NOTE | 2022-11-29 23:46 | EDPHYS ---
Physician Documentation [facility] Name: Douglas Carrillo Age: 57 yrs Sex: Male : 1965 Arrival Date: 11/29/2022 Time: 20:17 Bed 4 Private MD: ED Physician Warren Domingo HPI: 11/29 21:15 This 57 yrs old Male presents to ER via EMS with complaints of Vomiting, possible rt aspiration. 21:15 Patient has a history of tracheostomy due to prior stroke. The patient has been rt vomiting which is not typical for him. He denies any abdominal pain. There is concern that the patient may have aspirated. The patient's sats were 84% at the [facility], correcting with supplemental O2. Patient does reported difficulty breathing. Denies other acute complaints at this time. Symptoms are severe in severity, no other aggravating or alleviating factors.. Historical: - Allergies: 20:27 Neostigmine Methylsulfate; jb4 20:27 Sulfa (Sulfonamide Antibiotics); jb4 - PMHx: 20:27 CVA; Diabetes - IDDM; Hypertension; jb4 - Immunization history:: Adult Immunizations up to date. - Social history:: Smoking status: Patient denies any tobacco usage or history of. - Family history:: not pertinent. ROS: 21:15 Constitutional: Negative for fever, chills, and weight loss, Cardiovascular: Negative rt for chest pain, palpitations, and edema, MS/Extremity: Negative for injury and deformity, Skin: Negative for injury, rash, and discoloration, Psych: Negative for depression, anxiety, suicide ideation, homicidal ideation, and hallucinations. 21:15 Respiratory: Positive for cough, shortness of breath. 21:15 Abdomen/GI: Positive for nausea and vomiting, Negative for abdominal pain. Exam: 21:15 Constitutional: This is a well developed, well nourished patient who is awake, alert, rt and in no acute distress. Head/Face: Normocephalic, atraumatic. Chest/axilla: Normal chest wall appearance and motion. Nontender with no deformity. No lesions are appreciated. Cardiovascular: Regular rate and rhythm with a normal S1 and S2. No gallops, murmurs, or rubs. Normal PMI, no JVD. No pulse deficits. Abdomen/GI: Soft, non-tender, with normal bowel sounds. No distension or tympany. No guarding or rebound. No evidence of tenderness throughout. Skin: Warm, dry with normal turgor. Normal color with no rashes, no lesions, and no evidence of cellulitis. MS/ Extremity: Pulses equal, no cyanosis. Neurovascular intact. Full, normal range of motion. 21:15 ENT: Tracheostomy in place with copious secretions. 21:15 Respiratory: Rhonchorous sounds diffusely, worse on the right compared to the left, mild respiratory distress. 21:53 ECG was reviewed by the Attending Physician. rt Vital Signs: 20:22 BP 108 / 84; Pulse 101; Resp 20; Temp 98.9(O); Pulse Ox 93% on BiPAP; Weight 67.59 kg jb4 (M); Pain 0/10; 21:30 BP 116 / 63; Pulse 106; Resp 22; Pulse Ox 100% on 35 lpm Venturi mask; jb4 11/30 00:45 BP 77 / 53; Pulse 111; Resp 22; Pulse Ox 97% on 35 lpm Simple Mask; jb4 01:00 BP 95 / 58; Pulse 116; Resp 22; Temp 99.5(TE); Pulse Ox 96% on 35 lpm Venturi mask; jb4 02:00 BP 85 / 49; Pulse 106; Pulse Ox 97% on 35 lpm Mask: Venturi mask; jb4 02:39 BP 93 / 55; Pulse 111; Resp 25; Pulse Ox 100% on 35 lpm Mask: Venturi mask; jb4 11/29 20:22 Pain Scale: Adult jb4 Procedures: 03:06 Central Line: the site was prepped with Chlorhexidine, a triple lumen catheter was rt inserted, in the right femoral vein, in 1 attempts. placement was verified, by blood return, Placement of wire in vein confirmed with ultrasound, the site was dressed with Chlorhexidine impregnated, the patient tolerated the procedure, well. MDM: 11/29 20:18 Patient medically screened. rt 11/30 03:06 Differential diagnosis: Sepsis, aspiration pneumonia, bowel obstruction. Data reviewed: rt vital signs, nurses notes, lab test result(s), EKG, radiologic studies. Consideration of Admission/Observation Escalation of care including admission/observation considered. Management of patient was discussed with the following: Server Systems Administrator: Discussed with accepting critical care physician. I considered the following discharge prescriptions or medication management in the emergency department Medications were administered in the Emergency Department. See MAR. Care significantly affected by the following chronic conditions: Trach dependent. Post IV fluid administration reassessment for Sepsis: Client not prescribed the 30 mL/kg IVF due to: concern for fluid overload. concern related to heart failure. Amount of IVF prescribed: 1000 I believe that patient is at high risk for impending respiratory failure should he become volume overloaded, therefore, I believe that greater than 1000 cc of fluid is likely to harm the patient. Skin examination performed. Skin noted to be pale. Current patient vital signs reviewed: Yes. Respiratory: Respiratory exam did not improve from previous exam. Counseling: I had a detailed discussion with the patient and/or guardian regarding: the historical points, exam findings, and any diagnostic results supporting the discharge/admit diagnosis, the presence of at least one elevated blood pressure reading (>120/80) during this emergency department visit, lab results, radiology results, the need to transfer to another facility. ED course: Patient did not meet criteria for septic shock initially, given risk of volume overload, will stop at 1000 cc, will start Levophed.. 11/29 20:21 Order name: Blood Culture Adult (2) rt 11/29 20:21 Order name: CBC with Diff; Complete Time: 22:27 rt 11/29 20:21 Order name: CMP; Complete Time: 22:27 rt 11/29 20:21 Order name: Lactate w/ 2H reflex if indic.; Complete Time: 22:27 rt 11/29 20:21 Order name: Protime (+inr); Complete Time: 22:27 rt 11/29 20:21 Order name: Ptt, Activated; Complete Time: 22:27 rt 11/29 20:21 Order name: Urinalysis w/ reflexes; Complete Time: 01:48 rt 11/29 20:21 Order name: Sputum Culture rt 11/29 20:21 Order name: Troponin High Sensitivity; Complete Time: 22:27 rt 11/29 20:21 Order name: BNP; Complete Time: 22:27 rt 11/29 20:21 Order name: Lipase; Complete Time: 22:27 rt 11/29 20:21 Order name: Chest Single View XRAY; Complete Time: 22:27 rt 11/29 21:49 Order name: Abdomen ; Complete Time: 22:27 EDMS 11/29 20:21 Order name: EKG; Complete Time: 20: rt 11/29 20:21 Order name: Accucheck; Complete Time: : rt 11/29 20:21 Order name: Cardiac monitoring; Complete Time: 21: rt 11/29 20:21 Order name: EKG - Nurse/Tech; Complete Time: 21:35 rt 11/29 20:21 Order name: IV Saline Lock - Large Bore; Complete Time: 21: rt 11/29 20:21 Order name: Labs collected and sent; Complete Time: 21: rt 11/29 20:21 Order name: O2 Per Protocol; Complete Time: 20: rt 11/29 20:21 Order name: O2 Sat Monitoring; Complete Time: : rt 11/29 20:21 Order name: Vital Signs; Complete Time: 20:28 rt EC/02 21:53 Rate is 107 beats/min. Rhythm is regular, Sinus tachycardia with No ectopy. QRS [place] is rt Normal. [place] interval is normal. QRS interval is normal. QT interval is normal. No Q waves. T waves are Normal. No ST changes noted. Interpreted by me. Administered Medications: 21:35 Drug: Ampicillin-Sulbactam Sodium IVPB 3 grams Route: IVPB; Infused Over: 30 mins; lg3 Site: right antecubital; 23:39 Follow up: Response: No adverse reaction; IV Status: Completed infusion; IV Intake: lg3 100ml 21:35 Drug: NS 0.9% IV 500 ml Route: IV; Rate: bolus; Site: right antecubital; lg3 23:39 Follow up: IV Status: Completed infusion; IV Intake: 500ml 3 21:35 Drug: Ondansetron IVP 4 mg Route: IVP; Site: right antecubital; lg3 23:39 Follow up: Response: No adverse reaction [facility] 11/30 00:55 Drug: NS 0.9% IV 500 ml Route: IV; Rate: bolus; Site: left upper arm; jb4 01:09 Follow up: Response: No adverse reaction; Blood pressure is elevated; IV Status: jb4 Completed infusion; IV Intake: 500ml 01:23 Drug: Ondansetron IVP 4 mg Route: IVP; Site: left upper arm; jb4 01:56 Drug: Albuterol Inhalation 2.5 mg Route: Inhalation; jb4 01:56 Drug: Ipratropium Inhalation Aerosol 0.5 mg Route: Inhalation; jb4 01:57 Drug: Norepinephrine IV 0.1 mcg/kg/min {Note: started at 5mcg/min.} Route: IV; Rate: jb4 calculated rate; Site: left upper arm; 02:00 Follow up: BP 85 / 49; Pulse 106 bpm; Pulse Ox 97% 35lpm Mask: Venturi mask; Rate jb4 change 10 mcg/min 02:15 Follow up: site changed to right femoral line. jb4 02:39 Follow up: BP 93 / 55; Pulse 111 bpm; Resp 25 bpm; Pulse Ox 100% 35lpm Mask: Venturi jb4 mask 02:39 Follow up: Response: No adverse reaction; Blood sugar is elevated; IV Status: Infusion jb4 continued upon transfer Disposition Summary: 11/29/22 23:45 Transfer Ordered Transfer Location: Other Acute Care Facility rt Reason: Higher level of care rt Condition: Serious rt Problem: new rt Symptoms: have improved rt Accepting Physician: Migel(11/30/22 02:42) jb4 Diagnosis - Aspiration pneumonia rt - Hypoxia rt - Severe sepsis without septic shock rt - Acute kidney injury rt Discharge Instructions: - Discharge Summary Sheet rv1 Forms: - Medication Reconciliation Form rt - SBAR form rv1 Critical care time excluding procedures: 03:09 Critical care time: Bedside Care: 45 minutes, Consultation: 10 minutes. Total time: 55 rt minutes Signatures: Dispatcher [employer] Mikey Desir RN RN jb4 Britt Villafuerte RN RN lg3 Warren Domingo MD MD rt Corrections: (The following items were deleted from the chart) 11/29 21:49 20:22 Abdomen Pelvis W Con+CT.RAD.BRZ ordered. CHULA SANTIAGOMS 11/30 01:26 11/29 23:45 Migel rt jb4 11/30 02:42 01:26 Migel meehan jb4
--- NOTE | 2022-11-29 23:46 | ER ---
Nurse's Notes [facility] Name: Douglas Carrillo Age: 57 yrs Sex: Male : 1965 Arrival Date: 11/29/2022 Time: 20:17 Bed 4 Private MD: Diagnosis: Aspiration pneumonia;Hypoxia;Severe sepsis without septic shock;Acute kidney injury Presentation: 11/29 20:22 Chief complaint: EMS states: Pt was found an hour ago. by senior care staff throwing jb4 up and aspirated. Staff suctioned him and gave A:A 1:1. Initial O2 was 84, came up to 96 with oxygen. Had an initial temp of 101.3. Coronavirus screen: At this time, the client does not indicate any symptoms associated with coronavirus-19. Ebola Screen: No symptoms or risks identified at this time. Initial Sepsis Screen: Does the patient meet any 2 criteria? HR > 90 bpm. Does the patient have a suspected source of infection? Yes: Productive cough/pneumonia. Risk Assessment: Do you want to hurt yourself or someone else? Patient reports no desire to harm self or others. Onset of symptoms was November 29, 2022. Transition of care: patient was not received from another setting of care. 20:22 Method Of Arrival: EMS: [facility] jb4 20:22 Acuity: EMMANUEL 2 jb4 Historical: - Allergies: 20:27 Neostigmine Methylsulfate; jb4 20:27 Sulfa (Sulfonamide Antibiotics); jb4 - PMHx: 20:27 CVA; Diabetes - IDDM; Hypertension; jb4 - Immunization history:: Adult Immunizations up to date. - Social history:: Smoking status: Patient denies any tobacco usage or history of. - Family history:: not pertinent. Screenin:30 [facility] ED Fall Risk Assessment (Adult) History of falling in the last 3 months, jb4 including since admission No falls in past 3 months (0 pts) Confusion or Disorientation No (0 pts) Score/Fall Risk Level 0 - 2 = Low Risk Oriented to surroundings, Maintained a safe environment. Abuse screen: Denies threats or abuse. Nutritional screening: No deficits noted. Tuberculosis screening: No symptoms or risk factors identified. Assessment: 20:30 General: Appears in no apparent distress. uncomfortable, ill, Behavior is calm, jb4 anxious. Pain: Denies pain. Neuro: Level of Consciousness is awake, alert, obeys commands, Oriented to person, place, time, situation. Cardiovascular: Patient's skin is warm and dry. Respiratory: Airway is patent Respiratory effort is even, labored, Respiratory pattern is symmetrical, tachypnea Breath sounds are clear in left upper lobe and left lower lobe Breath sounds with rales in right upper lobe, right middle lobe and right lower lobe. GI: Reports nausea, vomiting. : No signs and/or symptoms were reported regarding the genitourinary system. EENT: No signs and/or symptoms were reported regarding the EENT system. Derm: Skin is healthy with good turgor, Skin is dry, Skin is pale, Skin temperature is warm. Musculoskeletal: Circulation, motion, and sensation intact. Range of motion: intact in all extremities. 22:00 Reassessment: Patient appears in no apparent distress at this time. Patient and/or 4 family updated on plan of care and expected duration. Pain level reassessed. Patient is alert, oriented x 3, equal unlabored respirations, skin warm/dry/pink. 23:00 Reassessment: Pt is resting in bed with eyes closed, respirations are even and jb4 unlabored with no s/s of pain or distress noted. 11/30 00:00 Reassessment: Patient appears in no apparent distress at this time. No changes from [facility] previously documented assessment. Patient and/or family updated on plan of care and expected duration. Pain level reassessed. 01:23 Reassessment: Pt is noted to have dark brown liquid like secretions from trach site jb4 with coughing. Provider made aware. Pt given another 4mg of zofran prior to leaving with EMS for nausea. 01:56 Reassessment: Pt desating on EMS VS, b/p dropping, pt given A:A treatment, Instructed [facility] to get Central line kit ready. Respiratory: Airway is patent Respiratory effort is even, labored, Respiratory pattern is symmetrical, tachypnea Breath sounds are clear in left upper lobe and left lower lobe Breath sounds with rales in right upper lobe, right middle lobe and right lower lobe. Vital Signs: 11/29 20:22 BP 108 / 84; Pulse 101; Resp 20; Temp 98.9(O); Pulse Ox 93% on BiPAP; Weight 67.59 kg jb4 (M); Pain 0/10; 21:30 BP 116 / 63; Pulse 106; Resp 22; Pulse Ox 100% on 35 lpm Venturi mask; jb4 11/30 00:45 BP 77 / 53; Pulse 111; Resp 22; Pulse Ox 97% on 35 lpm Simple Mask; jb4 01:00 BP 95 / 58; Pulse 116; Resp 22; Temp 99.5(TE); Pulse Ox 96% on 35 lpm Venturi mask; jb4 02:00 BP 85 / 49; Pulse 106; Pulse Ox 97% on 35 lpm Mask: Venturi mask; jb4 02:39 BP 93 / 55; Pulse 111; Resp 25; Pulse Ox 100% on 35 lpm Mask: Venturi mask; jb4 11/29 20:22 Pain Scale: Adult jb4 ED Course: 11/29 20:18 Patient arrived in ED. rv1 20:18 Warren Domingo MD is Attending Physician. rt 20:22 Mikey Contreras, RN is Primary Nurse. jb4 20:27 Triage completed. jb4 20:27 Arm band placed on right wrist. jb4 20:48 Radiology exam delayed due to lab results not completed at this time. (BUN/Creatinine) jg10 IV insertion attempt and/or patient not having appropriate IV at this time. 21:05 Inserted saline lock: 20 gauge in right antecubital area, using aseptic technique. lg3 Blood collected. 21:07 Lipase Sent. jb4 21:07 BNP Sent. jb4 21:07 Troponin High Sensitivity Sent. jb4 21:07 Sputum Culture Sent. jb4 21:07 Lactate w/ 2H reflex if indic. Sent. jb4 21:07 CBC with Diff Sent. jb4 21:08 CMP Sent. jb4 21:08 Protime (+inr) Sent. jb4 21:08 Ptt, Activated Sent. jb4 21:18 Chest Single View XRAY In Process Unspecified. EDMS 21:50 Inserted saline lock: 20 gauge in left ,using aseptic technique. shoulder. lg3 22:06 Abdomen In Process Unspecified. EDMS 05 01:25 No provider procedures requiring assistance completed. Patient transferred, IV remains jb4 in place. 01:47 Primary Nurse role handed off by Mikey Contreras, RN vc1 02:15 Assisted provider with central line placement. Set up central line tray. Triple lumen jb4 line placed in right femoral. Line placed by Warren Domingo MD Placement verified by blood return, Dressed with Tape, Tegaderm, Patient tolerated well. Administered Medications: 11/29 21:35 Drug: Ampicillin-Sulbactam Sodium IVPB 3 grams Route: IVPB; Infused Over: 30 mins; lg3 Site: right antecubital; 23:39 Follow up: Response: No adverse reaction; IV Status: Completed infusion; IV Intake: lg3 100ml 21:35 Drug: NS 0.9% IV 500 ml Route: IV; Rate: bolus; Site: right antecubital; lg3 23:39 Follow up: IV Status: Completed infusion; IV Intake: 500ml lg3 21:35 Drug: Ondansetron IVP 4 mg Route: IVP; Site: right antecubital; lg3 23:39 Follow up: Response: No adverse reaction [facility] 11/30 00:55 Drug: NS 0.9% IV 500 ml Route: IV; Rate: bolus; Site: left upper arm; jb4 01:09 Follow up: Response: No adverse reaction; Blood pressure is elevated; IV Status: jb4 Completed infusion; IV Intake: 500ml 01:23 Drug: Ondansetron IVP 4 mg Route: IVP; Site: left upper arm; jb4 01:56 Drug: Albuterol Inhalation 2.5 mg Route: Inhalation; jb4 01:56 Drug: Ipratropium Inhalation Aerosol 0.5 mg Route: Inhalation; jb4 01:57 Drug: Norepinephrine IV 0.1 mcg/kg/min {Note: started at 5mcg/min.} Route: IV; Rate: jb4 calculated rate; Site: left upper arm; 02:00 Follow up: BP 85 / 49; Pulse 106 bpm; Pulse Ox 97% 35lpm Mask: Venturi mask; Rate jb4 change 10 mcg/min 02:15 Follow up: site changed to right femoral line. jb4 02:39 Follow up: BP 93 / 55; Pulse 111 bpm; Resp 25 bpm; Pulse Ox 100% 35lpm Mask: Venturi jb4 mask 02:39 Follow up: Response: No adverse reaction; Blood sugar is elevated; IV Status: Infusion jb4 continued upon transfer Intake: 11/29 23:39 IV: 500ml; Total: 500ml. lg3 23:39 IV: 100ml; Total: 600ml. lg3 11/30 01:09 IV: 500ml; Total: 1100ml. jb4 Outcome: 11/29 23:45 ER care complete, transfer ordered by . rt 11/30 01:25 Transferred by ground EMS to [facility], Transfer form completed. jb4 X-rays sent w/ patient. Condition: stable Discharge instructions given to patient, Instructed on the need for transfer, Demonstrated understanding of instructions. 01:26 Patient left the ED. jb4 02:42 Patient left the ED. jb4 Signatures: Dispatcher [employer] EDMS Mikey Contreras RN RN jb4 Britt Villafuerte RN RN lg3 Deisy Deal RN RN vc1 [facility] [place] Domingo MD MD rt Lizzette Martinez rv1 Corrections: (The following items were deleted from the chart) 01:26 11/29 20:22 BP 108 / 84; Pulse 101bpm; Resp 20bpm; Pulse Ox 93% BiPAP; Temp 98.9F Oral; jb4 Pain 0/10, Adult; jb4 11/30 01:58 11/29 20:30 Respiratory: Airway is patent Respiratory effort is even, labored, jb4 Respiratory pattern is symmetrical, tachypnea jb4
[2022-11-30] MEDS ORDERED: NA CHLORIDE 0.9% 500 ML ONE (00:58)
[2022-11-30] MEDS ORDERED: ONDANSETRON 4 MG/2 ML VIAL ONE (01:20)
[2022-11-30 01:27] LABS: Specific Gravity 1.016 (1.005-1.030); Urine Bacteria <20 /HPF (<20); Urine Bilirubin NEGATIVE (Negative); Urine Blood 1+ (Negative); Urine Clarity Extremely Turbid (Clear); Urine Color Light-Orange (Yellow); Urine Glucose 4+ (Over) (Negative); Urine Mucus Slight /HPF (None Seen); Urine Protein 3+ (Negative); Urine RBC >50 /HPF (None Seen); Urine Urobilinogen Normal (Normal); Urine WBC Clump Many /HPF (None Seen)
[2022-11-30] MEDS ORDERED: ALBUTEROL 2.5 MG/3 ML NEB SOL ONE (01:50)
[2022-11-30] MEDS ORDERED: NOREPINEPHRINE BITARTRATE/D5W 4 MG/250 ML BAG IV ONE (02:10)
[2022-11-30 03:12] VITALS: TEMP 99.5
[2022-11-30 03:16] VITALS: BP 93/55; O2SAT 100
--- NOTE | 2022-11-30 14:06 | EKG ---
Test Date: 2022-11-29 Test Time: 21:36:26 Trailer Rental Clerk: WILY MEASUREMENT RESULTS: Intervals: Rate: 107 NM: 122 QRSD: 74 QT: 352 QTc: 469 [place]: P: 72 NM: 122 QRS: 80 T: 42 INTERPRETIVE STATEMENTS: Sinus tachycardia Otherwise normal ECG Compared to ECG 10/22/2022 00:19:28 Sinus rhythm no longer present Atrial premature complex(es) no longer present Electronically Signed On 11-30-22 14:05:37 CDT by Jimbo Elliott
== END 2022-11-30 02:42 ==
LOC: ER 20:17
PROC: 06HM33Z Insertion of Infusion Device into Right Femoral Vein, Percutaneous Approach (ICD-10-PCS; principal; 2022-11-30)
DX: J69.0 Pneumonitis due to inhalation of food and vomit (principal); A41.9 Sepsis, unspecified organism; R65.20 Severe sepsis without septic shock; R09.02 Hypoxemia; N17.9 Acute kidney failure, unspecified; I10 Essential (primary) hypertension; E11.9 Type 2 diabetes mellitus without complications; Z86.73 Personal history of transient ischemic attack (TIA), and cerebral infarction without residual deficits; Z88.2 Allergy status to sulfonamides; Z88.8 Allergy status to other drugs, medicaments and biological substances
CPT/HCPCS: 36415; 71045; 74176; 80053; 81001; 83605; 83690; 83880; 84484; 85025; 85610; 85730; 87040; 87070; 87077; 87086; 87088; 87186; 87205; 93005; 99285; J0295; J2405; J7040; J7613

== ENCOUNTER 2022-12-16 02:36 | Inpatient (IN) | payer BC ==
[2022-12-16] MEDS ORDERED: ONDANSETRON 4 MG/2 ML VIAL ONE ×2 (03:00→04:38)
[2022-12-16 03:45] LABS: Absolute Lymphocytes (CBC) 1.1 K/uL (0.7-4.9); Hematocrit 27.7 % (39.6-49.0); Lymphocytes % 6.2 % (15.3-44.8); MCV 80.5 fL (80-100); MPV 8.2 fL (7.6-11.3); RBC Red Blood Cell Count 3.45 M/uL (4.33-5.43)
[2022-12-16 03:56] LABS: Potassium 6.4 mEq/L (3.5-5.1); Troponin High Sensitivity 20.2 pg/mL (<58.9)
--- NOTE | 2022-12-16 04:02 | EDPHYS ---
Physician Documentation [facility] Name: Douglas Carrillo Age: 57 yrs Sex: Male : 1965 Arrival Date: 12/16/2022 Time: 02:36 Bed 6 Private MD: ED Physician Rory Escobar HPI: 12/16 03:33 This 57 yrs old Male presents to ER via EMS with complaints of Abnormal Lab Results. sp3 03:33 57-year-old male with recent history of CVA and diabetes and related septic shock he sp3 was discharged back from the [facility] to local [facility] with a trach presents to the ED for chief complaint hyperkalemia on routine laboratory evaluation. intermediate sent him here for further evaluation and repeat testing. Patient demonstrates no signs or symptoms of anything at all. He denies any chest pain, palpitations, shortness of breath, headache, nausea, vomiting, diarrhea, abdominal pain, rash, numbness or tingling, or any other signs or symptoms on ROS at this time.. Historical: - Allergies: 03:12 Neostigmine Methylsulfate; kd3 03:12 Sulfa (Sulfonamide Antibiotics); kd3 - PMHx: 03:12 CVA; Diabetes - IDDM; Hypertension; kd3 - Immunization history:: Adult Immunizations up to date. - Social history:: Smoking status: unknown. ROS: 03:34 Constitutional: Negative for fever, chills, and weight loss, Eyes: Negative for injury, sp3 pain, redness, and discharge, ENT: Negative for injury, pain, and discharge, Neck: Negative for injury, pain, and swelling, Cardiovascular: Negative for chest pain, palpitations, and edema, Abdomen/GI: Negative for abdominal pain, nausea, vomiting, diarrhea, and constipation, Back: Negative for injury and pain, MS/Extremity: Negative for injury and deformity, Skin: Negative for injury, rash, and discoloration, Neuro: Negative for headache, weakness, numbness, tingling, and seizure. 03:34 All other systems are negative. Exam: 03:34 Constitutional: This is a well developed, well nourished patient who is awake, alert, sp3 and in no acute distress. Head/Face: Normocephalic, atraumatic. Eyes: Pupils equal round and reactive to light, extra-ocular motions intact. Lids and lashes normal. Conjunctiva and sclera are non-icteric and not injected. Cornea within normal limits. Periorbital areas with no swelling, redness, or edema. ENT: Nares patent. No nasal discharge, no septal abnormalities noted. External auditory canals are clear. Oropharynx with no redness, swelling, or masses, exudates, or evidence of obstruction, uvula midline. Mucous membranes moist. Chest/axilla: Normal chest wall appearance and motion. Nontender with no deformity. No lesions are appreciated. Cardiovascular: Regular rate and rhythm with a normal S1 and S2. No gallops, murmurs, or rubs. Normal PMI, no JVD. No pulse deficits. Respiratory: Lungs have equal breath sounds bilaterally, clear to auscultation and percussion. No rales, rhonchi or wheezes noted. No increased work of breathing, no retractions or nasal flaring. Abdomen/GI: Soft, non-tender, with normal bowel sounds. No distension or tympany. No guarding or rebound. No evidence of tenderness throughout. Back: No spinal tenderness. No costovertebral tenderness. Full range of motion. Skin: Warm, dry with normal turgor. Normal color with no rashes, no lesions, and no evidence of cellulitis. 03:34 Neck: Tracheostomy tube in place with normal amount of secretions. No signs of infection or bleeding noted.. 03:34 ECG was reviewed by the Attending Physician. EKG demonstrates normal sinus rhythm at 89 bpm with normal intervals, normal QRS, normal axis, nonspecific diffuse ST/T changes without evidence of acute ischemia. T wave morphology is normal and demonstrates no peaked T waves. Vital Signs: 03:11 BP 100 / 56; Pulse 89; Resp 20; Temp 98.3(O); Pulse Ox 95% 10 lpm ; Weight 68.04 kg; kd3 03:45 BP 105 / 55; Pulse 85; Resp 20 S; Pulse Ox 97% on 5 lpm Simple Mask; ha1 04:30 BP 153 / 57; Pulse 92; Resp 22 S; Pulse Ox 97% on 5 lpm Simple Mask; ha1 05:25 BP 99 / 55; Pulse 92; Resp 22 S; Pulse Ox 97% on 5 lpm Simple Mask; ha1 MDM: 02:39 Patient medically screened. sp3 03:35 Data reviewed: vital signs, nurses notes, diagnostic data from outside facility, lab sp3 test result(s), EKG, radiologic studies. ED course: 57-year-old male brought to the ED for evaluation of hyperkalemia. I am not highly suspicious that the reported value of 6.9 is real. We are repeating the study here. EKG demonstrates no evidence of peaked T waves widening QRS or bradycardia. Patient is in no acute distress and having no symptoms at all. Chest x-ray demonstrates no change from prior demonstrates no infiltrates or other abnormalities. Once laboratory values are verified, we will safely discharge patient back home. If potassium is indeed elevated, standard treatment regimen will be initiated with possible 23-hour observation if needed.. 03:58 ED course: Potassium returned at 6.4. We will start medications including insulin, sp3 calcium gluconate to stabilize membranes, Kayexalate and albuterol. Creatinine value is now 4 from a prior 3. Patient will need nephrology consult. Again EKG demonstrates no peaked T waves or widening QRS or bradycardia. WBC count is elevated at 17 and will defer to inpatient team for elucidation of potential causes. Consider UTI versus pulmonary source given patient has a trach and indwelling Simmons. We will start prophylactic antibiotics Zosyn x1 dose.. 12/16 02:38 Order name: Basic Metabolic Panel; Complete Time: 04:36 sp3 12/16 02:38 Order name: CBC with Diff; Complete Time: 05:24 sp3 12/16 02:38 Order name: Troponin HS; Complete Time: 04:36 sp3 12/16 03:51 Order name: Manual Differential; Complete Time: 05:24 EDMS 12/16 04:06 Order name: Urinalysis W/Microscopic; Complete Time: 05:24 sb4 12/16 02:38 Order name: XRAY Chest (1 view) sp3 12/16 03:26 Order name: RC 02 HUMIDIFIER EDMS 12/16 03:26 Order name: RC 02 MASK EDMS 12/16 03:26 Order name: RC AEROSOL TUBING EDMS 12/16 03:26 Order name: RC AEROSOL MAXIMUM/DAY EDMS 12/16 02:38 Order name: EKG; Complete Time: 02:39 sp3 12/16 02:38 Order name: Cardiac monitoring; Complete Time: 02:54 sp3 12/16 02:38 Order name: EKG - Nurse/Tech; Complete Time: 02:54 sp3 12/16 02:38 Order name: IV Saline Lock; Complete Time: 02:54 sp3 12/16 02:38 Order name: Labs collected and sent; Complete Time: 02:54 sp3 Administered Medications: 04:02 Not Given (Changed to Zosynn): Cefepime IVPB 1 grams IVPB at 200 ml/hr once over 30 sp3 mins; (mix in NS 100 mL) 04:30 Drug: Ondansetron IVP 4 mg Route: IVP; Site: left wrist; ha1 05:00 Follow up: Response: No adverse reaction; Nausea is decreased ha1 04:49 Drug: Albuterol Inhalation 2.5 mg Route: Inhalation; kd3 05:00 Follow up: Response: No adverse reaction ha1 04:49 Drug: Piperacillin-Tazobactam IVPB 2.25 grams Route: IVPB; Infused Over: 60 mins; Site: kd3 left forearm; 05:15 Follow up: Response: No adverse reaction ha1 04:50 Drug: Calcium Gluconate IVPB 2 grams Route: IVPB; Infused Over: 60 mins; Site: right kd3 forearm; 05:15 Follow up: Response: No adverse reaction ha1 04:50 Drug: Insulin Regular Human IVP 10 units {Co-Signature: lg3 (Britt Villafuerte RN).} Route: kd3 IVP; Site: left forearm; 05:07 Drug: metoCLOPramide IVP 10 mg Route: IVP; Site: left forearm; kd3 05:30 Follow up: Response: No adverse reaction ha1 05:17 Drug: Kayexalate PO 30 grams Route: PO; kd3 05:30 Follow up: Response: No adverse reaction ha1 Disposition Summary: 12/16/22 04:01 Hospitalization Ordered Hospitalization Status: Inpatient Admission sp3 Provider: Geoffrey Campuzano spiMtra [facility] sp3 Condition: Stable sp3 Problem: an acute exacerbation sp3 Symptoms: have worsened sp3 Bed/Room Type: Standard sp3 Room Assignment: 211(12/16/22 04:25) kl Diagnosis - Hyperkalemia, leukocytosis, possible pulmonary infection, acute on chronic renal sp3 failure Forms: - Medication Reconciliation Form sp3 - SBAR form sp3 Signatures: Dispatcher [employer] EDMS Karen Byrd RN RN Rory Bernabe MD MD sp3 Blossom Roberts RN RN kd3 Corrie Stevenson RN RN ha1 Dilcia Perkins, PAMarybel PAMarybel sb4 Britt Villafuerte RN lg3 Corrections: (The following items were deleted from the chart) 04:03 03:58 ED course: Potassium returned at 6.4. We will start medications including sp3 insulin, calcium gluconate to stabilize membranes, Kayexalate and albuterol. Creatinine value is now 4 from a prior 3. Patient will need nephrology consult. Again EKG demonstrates no peaked T waves or widening QRS or bradycardia. WBC count is elevated at 17 and will defer to inpatient team for elucidation of potential causes. Consider UTI versus pulmonary source given patient has a trach and indwelling Simmons. We will start prophylactic antibiotics cefepime x1 dose.. sp3 04:25 03:33 57-year-old male with recent history of CVA and diabetes and related septic shock sp3 he was discharged back from the [facility] to local prison with a trach presents to the ED for chief complaint hypokalemia on routine laboratory evaluation. intermediate sent him here for further evaluation and repeat testing. Patient demonstrates no signs or symptoms of anything at all. He denies any chest pain, palpitations, shortness of breath, headache, nausea, vomiting, diarrhea, abdominal pain, rash, numbness or tingling, or any other signs or symptoms on ROS at this time.. sp3 04:25 04:01 sp3 connie
--- NOTE | 2022-12-16 04:02 | ER ---
Nurse's Notes [facility] Name: Douglas Carrillo Age: 57 yrs Sex: Male : 1965 Arrival Date: 12/16/2022 Time: 02:36 Bed 6 Private MD: Diagnosis: Hyperkalemia, leukocytosis, possible pulmonary infection, acute on chronic renal failure Presentation: 12/16 02:39 Chief complaint: EMS states: [facility] called EMS for abnormal lab kd3 results, potassium of 6.9. In route, pt had express that he wasn't feeling well and that he had only been back at [facility] for two days. He had been here and was transferred out to [place]. 03:11 Coronavirus screen: Vaccine status: Patient reports receiving the 2nd dose of the covid kd3 vaccine. Ebola Screen: No symptoms or risks identified at this time. Initial Sepsis Screen: Does the patient meet any 2 criteria? No. Patient's initial sepsis screen is negative. Does the patient have a suspected source of infection? Yes: Productive cough/pneumonia. Risk Assessment: Do you want to hurt yourself or someone else? Patient reports no desire to harm self or others. Onset of symptoms was December 16, 2022. 03:11 Method Of Arrival: EMS: [facility] kd3 03:11 Acuity: EMMANUEL 3 kd3 Triage Assessment: 03:12 General: Appears uncomfortable, ill, Behavior is calm, cooperative. Pain: Unable to use kd3 pain scale. FLACC scale score is 0 out of 10. Historical: - Allergies: 03:12 Neostigmine Methylsulfate; kd3 03:12 Sulfa (Sulfonamide Antibiotics); kd3 - PMHx: 03:12 CVA; Diabetes - IDDM; Hypertension; kd3 - Immunization history:: Adult Immunizations up to date. - Social history:: Smoking status: unknown. Screenin:13 [facility] ED Fall Risk Assessment (Adult) History of falling in the last 3 months, kd3 including since admission No falls in past 3 months (0 pts) Confusion or Disorientation No (0 pts) Intoxicated or Sedated No (0 pts) Impaired Gait Yes (1 pt) Mobility Assist Device Used Yes (1 pt) Altered Elimination No (0 pt) Score/Fall Risk Level 0 - 2 = Low Risk Maintained a safe environment. Abuse screen: Denies threats or abuse. Denies injuries from another. Nutritional screening: No deficits noted. Tuberculosis screening: No symptoms or risk factors identified. Assessment: 03:45 Reassessment: Patient and/or family updated on plan of care and expected duration. Pain ha1 level reassessed. 03:45 General: Behavior is calm, cooperative. Respiratory: Airway is patent Respiratory ha1 effort is even, unlabored, Respiratory pattern is regular, symmetrical. 04:25 Reassessment: Patient and/or family updated on plan of care and expected duration. Pain ha1 level reassessed. vomiting. notified in shift. 04:25 General: Appears Behavior is cooperative. ha1 Vital Signs: 03:11 BP 100 / 56; Pulse 89; Resp 20; Temp 98.3(O); Pulse Ox 95% 10 lpm ; Weight 68.04 kg; kd3 03:45 BP 105 / 55; Pulse 85; Resp 20 S; Pulse Ox 97% on 5 lpm Simple Mask; ha1 04:30 BP 153 / 57; Pulse 92; Resp 22 S; Pulse Ox 97% on 5 lpm Simple Mask; ha1 05:25 BP 99 / 55; Pulse 92; Resp 22 S; Pulse Ox 97% on 5 lpm Simple Mask; ha1 ED Course: 02:37 Patient arrived in ED. kd3 02:38 Rory Escobar MD is Attending Physician. sp3 03:00 Inserted saline lock: 22 gauge in left forearm, using aseptic technique. Blood ha1 collected. 03:12 Triage completed. kd3 03:12 Arm band placed on right wrist. kd3 03:13 Patient has correct armband on for positive identification. Placed in gown. Bed in low kd3 position. Call light in reach. Client placed on continuous cardiac and pulse oximetry monitoring. NIBP monitoring applied. monitoring analyst on. 03:18 XRAY Chest (1 view) In Process Unspecified. EDMS 03:56 Notified ED physician of a critical lab result(s). potassium 6.4 blood sugar 418. kl 04:00 Geoffrey Campuzano is Hospitalizing Provider. sp3 04:01 Blossom Roberts, FELIBERTO is Primary Nurse. kd3 06:10 No provider procedures requiring assistance completed. Patient admitted, IV remains in ha1 place. Administered Medications: 04:02 Not Given (Changed to Zosynn): Cefepime IVPB 1 grams IVPB at 200 ml/hr once over 30 sp3 mins; (mix in NS 100 mL) 04:30 Drug: Ondansetron IVP 4 mg Route: IVP; Site: left wrist; ha1 05:00 Follow up: Response: No adverse reaction; Nausea is decreased ha1 04:49 Drug: Albuterol Inhalation 2.5 mg Route: Inhalation; kd3 05:00 Follow up: Response: No adverse reaction ha1 04:49 Drug: Piperacillin-Tazobactam IVPB 2.25 grams Route: IVPB; Infused Over: 60 mins; Site: kd3 left forearm; 05:15 Follow up: Response: No adverse reaction ha1 04:50 Drug: Calcium Gluconate IVPB 2 grams Route: IVPB; Infused Over: 60 mins; Site: right kd3 forearm; 05:15 Follow up: Response: No adverse reaction ha1 04:50 Drug: Insulin Regular Human IVP 10 units {Co-Signature: lg3 (Britt Villafuerte RN).} Route: kd3 IVP; Site: left forearm; 05:07 Drug: metoCLOPramide IVP 10 mg Route: IVP; Site: left forearm; kd3 05:30 Follow up: Response: No adverse reaction ha1 05:17 Drug: Kayexalate PO 30 grams Route: PO; kd3 05:30 Follow up: Response: No adverse reaction ha1 Medication: 03:14 VIS not applicable for this client. kd3 Outcome: 04:01 Decision to Hospitalize by Provider. sp3 06:11 Admitted to Med/surg accompanied by tech, via stretcher, room 211, with oxygen, with ha1 chart, Report called to FELIBERTO Bryan. Report was given by FELIBERTO Carney 06:11 Condition: stable 06:11 Discharge instructions given to patient, Instructed on the need for admit, Demonstrated understanding of instructions. 06:15 Patient left the ED. ha1 Signatures: Dispatcher [employer] EDMS Karen Byrd RN RN kl Patel, Setul, MD MD sp3 Blossom Roberts RN RN kd3 Corrie Stevenson RN RN ha1 Britt Villafuerte RN lg3
[2022-12-16] MEDS ORDERED: PIPERACIL/TAZO 2.25 GM VIAL IV ONE ×2 (04:10→07:40)
[2022-12-16] MEDS ORDERED: INSULIN -REGULAR HUMAN 50 UNIT/0.5 ML ML ONE (04:11)
[2022-12-16] MEDS ORDERED: ALBUTEROL 2.5 MG/3 ML NEB SOL ONE (04:11)
[2022-12-16] MEDS ORDERED: CALCIUM GLUCONATE 1 GM IVPB 2 GM/100 ML BAG IV ONE (04:12)
[2022-12-16] MEDS ORDERED: SOD POLYSTYREN SUL 15 GM/60 ML UCUP ONE (04:12)
[2022-12-16] MEDS ORDERED: NA CHLORIDE 0.9% 100 ML ONE (04:12)
--- NOTE | 2022-12-16 04:23 | P.HP ---
Certification for Inpatient Patient admitted to: Inpatient With expected LOS: >2 Midnights Patient will require the following post-hospital care: None Practitioner: I am a practitioner with admitting privileges, knowledge of patient current condition, hospital course, and medical plan of care. Services: Services provided to patient in accordance with Admission requirements found in Title 42 Section 412.3 of the Code of Federal Regulations Patient History Date of Service: 12/16/22 Primary Care Provider: Chuy Hayes Reason for admission: Hyperkalemia, Renal Failure History of Present Illness: Mr. Carrillo is a 57-year-old nonverbal male with history of hypertension, COPD, GERD, chronic combined CHF, history of CVA, hyperlipidemia, indwelling Simmons catheter, chronic respiratory failure tracheostomy dependent, presence of gastrostomy tube, chronic kidney disease stage IV, type 1 diabetes, and physical debility who presented to the emergency department via EMS from half-way with hyperkalemia. He had routine labs done which revealed a potassium of 6.9. He was discharged from the medical center 2 days ago after treatment of septic shock secondary to aspiration pneumonia. Patient has no complaints at this time. Labs are significant for WBC 17.6 with left shift and bandemia, hemoglobin 8.7, hematocrit 27.7, sodium 129, potassium 6.4, CO2 18, BUN 85, creatinine 4.1, glucose 418. EKG without acute changes, mildly peaked t waves. Urine pending. Chest xray negative for acute findings. Vital signs have been stable. He was given hyperkalemia reversal agents as well as zosyn in the emergency department. Patient is admitted for further management of hyperkalemia, acute on chronic renal failure. Allergies Sulfa (Sulfonamide Antibiotics) Allergy (Verified 05/13/19 16:25) Itching/Hives/Rash Home medications list reviewed: Yes Home Medications: Aspirin [Aspirin EC 81 MG] 81 mg PO DAILY #90 tablet. 05/14/19 Acetaminophen 2 tab .ROUTE Q6H PRN 10/22/22 Acetylcysteine 100 mg PO BID 10/22/22 Albuterol Sulfate [Albuterol Sulfate 0.083% Neb Soln] 2.5 mg IH BID 10/22/22 Amlodipine [Norvasc*] 1 tab PO BEDTIME 10/22/22 Atorvastatin Calcium [Lipitor*] 1 tab PO BEDTIME 10/22/22 Budesonide [Pulmicort*] 0.5 mg IH BID 10/22/22 Carvedilol [Coreg] 1 tab PO BID 10/22/22 Clonidine HCl [Clonidine HCl ER] 1 tab PO Q8H PRN 10/22/22 Escitalopram Oxalate [Lexapro] 1 tab PO DAILY 10/22/22 Ferrous Sulfate 300 mg pe .ROUTE BID 10/22/22 Fluconazole 50 mg .ROUTE DAILY 10/22/22 Insulin Glargine,Hum.rec.anlog [Lantus Solostar] 27 units SQ BID 10/22/22 Insulin Lispro 1 units SQ AC 10/22/22 Ipratropium [place] 2.5 ml IH BID 10/22/22 Lactulose [Enulose] 15 ml PO Q6H PRN 10/22/22 Levothyroxine Sodium 1 tab PO DAILY 10/22/22 Lidocaine [Lidocaine Pain Relief] 1 patch TOP Q12H 10/22/22 Nystatin Oint [Mycostatin 100 Mu/Gm Oint*] 1 fabrizio TOP BID 10/22/22 Omeprazole 1 cap .ROUTE DAILY 10/22/22 Ondansetron [Zofran (Odt)*] 1 tab PO Q8H PRN 10/22/22 Tamsulosin HCl [Flomax] 1 cap PO BEDTIME 10/22/22 Nepro 240 ml FT QID bot 10/24/22 PIPER/TAZO/NS 3.375gm [Zosyn 3.375 gm/100 ml Ns Ivpb] 3.375 gm IV Q8H #42 vial 10/24/22 - Past Medical/Surgical History Diabetic: Yes -: DM I -: CKD IV (Dr. Edmonds) -: CAD -: Hypertension -: Hyperlipidemia -: PVD -: History TIA/CVA -: Congestive Heart Failure -: Appendectomy -: Left below-knee amputation -: Multiple surgeries to the right lower extremity -: Right foot all toes amputated- february 2019 Psychosocial/ Personal History: Patient lives at [facility]. - Family History Mother -: Cancer - Social History Smoking Status: Former smoker Alcohol use: Yes CD- Drugs: No Caffeine use: Yes Place of Residence: Home Review of Systems Unremarkable Physical Examination - Vital Signs Temperature: 98.3 F Blood Pressure: 105/55 Pulse: 85 Respirations: 20 Pulse Ox (%): 97 (5L trach collar) - Physical Exam General: Alert, In no apparent distress, Other (Pale) HEENT: Atraumatic, EOMI, Sclerae nonicteric Neck: Supple, 2+ carotid pulse no bruit Respiratory: Clear to auscultation bilaterally, Normal air movement Cardiovascular: Regular rate/rhythm, Normal S1 S2 Gastrointestinal: Normal bowel sounds, No tenderness Musculoskeletal: No tenderness Integumentary: No rashes Neurological: Sensation intact, Normal affect Urinary: Simmons catheter - Studies Laboratory Data (last 24 hrs) 12/16/22 03:25: WBC 17.60 H, Hgb 8.7 L, Hct 27.7 L, Plt Count 738 H 12/16/22 03:25: Sodium 129 L, Potassium 6.4 H*, BUN 85 H, Creatinine 4.10 H, Glucose 418 H* Assessment and Plan - Problems (Diagnosis) (1) Acute renal failure Current Visit: Yes Status: Acute Qualifiers: Acute renal failure type: unspecified Qualified Code(s): N17.9 - Acute kidney failure, unspecified (2) Chronic respiratory failure with hypoxia Current Visit: Yes Status: Chronic (3) Coronary artery disease Current Visit: Yes Status: Chronic Qualifiers: Coronary Disease-Associated Artery/Lesion type: jamul artery [place] vs. transplanted heart: jamul heart Associated angina: without angina Qualified Code(s): I25.10 - Atherosclerotic heart disease of jamul coronary artery without angina pectoris (4) Status post tracheostomy Current Visit: Yes Status: Chronic (5) UTI (urinary tract infection) Current Visit: Yes Status: Acute Qualifiers: Urinary tract infection type: catheter-associated UTI Indwelling urinary catheter type: indwelling urethral catheter Encounter type: initial encounter Qualified Code(s): T83.511A - Infection and inflammatory reaction due to indwelling urethral catheter, initial encounter; N39.0 - Urinary tract infection, site not specified (6) Anemia Current Visit: Yes Status: Chronic Qualifiers: Anemia type: due to chronic kidney disease Chronic kidney disease stage: stage 4 (severe) Qualified Code(s): N18.4 - Chronic kidney disease, stage 4 (severe); D63.1 - Anemia in chronic kidney disease (7) Congestive heart failure Current Visit: Yes Status: Chronic Qualifiers: Heart failure type: diastolic Heart failure chronicity: chronic Qualified Code(s): I50.32 - Chronic diastolic (congestive) heart failure (8) Type 1 diabetes Current Visit: Yes Status: Chronic Qualifiers: Diabetes mellitus complication status: with hyperglycemia Qualified Code(s): E10.65 - Type 1 diabetes mellitus with hyperglycemia - Plan Patient is admitted for further management of hyperkalemia and acute on chronic renal failure. Current potassium is 6.4. Received IV insulin, kayexalate, calcium gluconate, and albuterol in ED. Repeat BMP ordered. Consult nephrology, Dr. Edmonds. Renal function worsening. Urine pending. Likely the cause of leukocytosis. Started on zosyn in ED based on prior urine cultures. Vitals stable, no sepsis indicators at this time. ACHS accu checks with moderate sliding scale. Anemia appears to be worsening per chart review, likely from worsening CKD. Monitor closely. Transfuse as necessary. Resume tube feeds via gtube once confirmed. Monitor and replete electrolytes per protocol. Patient is nonverbal but can respond to questions alternatively. Lovenox for VTE prophylaxis. Full code Discharge Plan: Usp Plan to discharge in: Greater than 2 days - Advance Directives Does patient have a Living Will: No Does patient have a Durable POA for Healthcare: No - Code Status/Comfort Care Code Status Assessed: Yes Code Status: Full Code Physician Review: Patient Assessed, Agree with Above Assessment and Plan Critical Care: No Time Spent Managing Pts Care (In Minutes): 50
[2022-12-16 04:41] LABS: Blood Morphology Comment NOT SEEN (NOT SEEN); Platelet Estimate ADEQ
[2022-12-16] MEDS ORDERED: METOCLOPRAMIDE 10 MG/2mL INJ ONE (05:08)
[2022-12-16 05:21] LABS: Specific Gravity 1.013 (1.005-1.030); Urine Bacteria None Seen /HPF (<20); Urine Bilirubin NEGATIVE (Negative); Urine Blood Negative (Negative); Urine Clarity Clear (Clear); Urine Color Light-Yellow (Yellow); Urine Glucose 2+ (Negative); Urine Protein 2+ (Negative); Urine RBC <5 /HPF (None Seen); Urine Urobilinogen Normal (Normal); Urine pH 6.5 (5.0-7.0)
[2022-12-16] MEDS ORDERED: ONDANSETRON 4 MG/2 ML VIAL IV PRN (05:49)
[2022-12-16] MEDS ORDERED: ALBUMIN HUMAN 25% 100 ML IV ONE (05:49)
[2022-12-16] MEDS ORDERED: ALBUTEROL 2.5 MG/3 ML NEB SOL NEB PRN ×2 (05:49→12:00)
[2022-12-16] MEDS ORDERED: NA CHLORIDE 0.9% 50 ML ONE (07:39)
[2022-12-16] MEDS: PIPER TAZO 2.25 GM in NA CHLORIDE 0.9% 50 ML IV SCH ×2 (07:41→16:40)
[2022-12-16] MEDS: INSULIN -REGULAR HUMAN 50 UNIT/0.5 ML ML SQ SCH ×2 (09:49→12:01)
[2022-12-16] MEDS ORDERED: NACHLORIDE 0.45% 1,000 ML with NA BICARB 8.4% 75 MEQ IV SCH ×2 (11:00)
--- NOTE | 2022-12-16 11:17 | P.CNS ---
Date of Consult: 12/16/22 Reason for Consult: ARF, hyperkalemia, acidosis Requesting Physician: enrike bailey Primary Care Provider: Chuy Hayes Chief Complaint: Hyperkalemia, Renal Failure History of Present Illness: Mr. Carrillo is a 57-year-old male with a hx of prior CVA, aphasia, chronic resp failure with trach dependence, PEG tube, Type 1 DM, unspecified CHF, CKD NOS, and physical debility who is a chronic [place] resident who was last here in September and who presented [facility] the emergency [facility] with abnormal labs and found to have hyperglycemia, low BP, leukocytosis, abnormal urine and other. Allergies Sulfa (Sulfonamide Antibiotics) Allergy (Verified 05/13/19 16:25) Itching/Hives/Rash Home Medications: Aspirin [Aspirin EC 81 MG] 81 mg PO DAILY #90 tablet. 05/14/19 Acetaminophen 2 tab .ROUTE Q6H PRN 10/22/22 Acetylcysteine 100 mg PO BID 10/22/22 Albuterol Sulfate [Albuterol Sulfate 0.083% Neb Soln] 2.5 mg IH BID 10/22/22 Amlodipine [Norvasc*] 1 tab PO BEDTIME 10/22/22 Atorvastatin Calcium [Lipitor*] 1 tab PO BEDTIME 10/22/22 Budesonide [Pulmicort*] 0.5 mg IH BID 10/22/22 Carvedilol [Coreg] 1 tab PO BID 10/22/22 Clonidine HCl [Clonidine HCl ER] 1 tab PO Q8H PRN 10/22/22 Escitalopram Oxalate [Lexapro] 1 tab PO DAILY 10/22/22 Ferrous Sulfate 300 mg pe .ROUTE BID 10/22/22 Fluconazole 50 mg .ROUTE DAILY 10/22/22 Insulin Glargine,Hum.rec.anlog [Lantus Solostar] 27 units SQ BID 10/22/22 Insulin Lispro 1 units SQ AC 10/22/22 Ipratropium [place] 2.5 ml IH BID 10/22/22 Lactulose [Enulose] 15 ml PO Q6H PRN 10/22/22 Levothyroxine Sodium 1 tab PO DAILY 10/22/22 Lidocaine [Lidocaine Pain Relief] 1 patch TOP Q12H 10/22/22 Nystatin Oint [Mycostatin 100 Mu/Gm Oint*] 1 fabrizio TOP BID 10/22/22 Omeprazole 1 cap .ROUTE DAILY 10/22/22 Ondansetron [Zofran (Odt)*] 1 tab PO Q8H PRN 10/22/22 Tamsulosin HCl [Flomax] 1 cap PO BEDTIME 10/22/22 Nepro 240 ml FT QID bot 10/24/22 PIPER/TAZO/NS 3.375gm [Zosyn 3.375 gm/100 ml Ns Ivpb] 3.375 gm IV Q8H #42 vial 10/24/22 - Past Medical/Surgical History Diabetic: Yes -: DM I -: CKD IV (Dr. Edmonds) -: CAD -: Hypertension -: Hyperlipidemia -: PVD -: History TIA/CVA -: Congestive Heart Failure -: Appendectomy -: Left below-knee amputation -: Multiple surgeries to the right lower extremity -: Right foot all toes amputated- february 2019 Psychosocial/ Personal History: Patient lives at [facility]. - Family History Mother Medical History: Cancer - Social History Smoking Status: Unknown if ever smoked Alcohol use: Yes CD- Drugs: No Caffeine use: Yes Place of Residence: Home Review of Systems is unable to be obtained Physical Examination Temp Pulse Resp BP Pulse Ox 97.7 F 82 24 H 73/40 L 91 12/16/22 08:00 12/16/22 08:00 12/16/22 08:00 12/16/22 08:00 12/16/22 08:00 General: In no apparent distress, Cachectic HEENT: Atraumatic, Normocephalic Neck: Other (trach with trach collar) Respiratory: Other (b/l air entry, slightly coarse) Cardiovascular: Regular rate/rhythm, Diastolic murmur Gastrointestinal: Soft and benign, Non-distended, Other (PEG tube present) Musculoskeletal: No swelling, Other (Muscle mass loss) Integumentary: Other (Did not examine for decubit) Neurological: Other (Aphasic, awake, tracks movements, no tremors or myoclonus) Laboratory Data (last 24 hrs) 12/16/22 03:25: WBC 17.60 H, Hgb 8.7 L, Hct 27.7 L, Plt Count 738 H 12/16/22 03:25: Sodium 129 L, Potassium 6.4 H*, BUN 85 H, Creatinine 4.10 H, Glucose 418 H* Conclusions/Impression: A/P) 1. Stage III ARF per JEFFREY definition with presenting Cr level > 4 mg/dl on underlying CKD NOS, but suspected advanced given labs not far from this range ea rlier in the mo and in September and pt with reported prior KATLYN episodes. 2. Renal imaging does not show obstructive uropathy, pt with chronic ortega it appears. 3. Hyperkalemia in the setting of renal failure, insulin deficiency and acidosis. Cont treatment with Insulin and other measures to lower potassium levels. Will dose cation exchangers with Lokelma. Will monitor levels closely 4. AG metab acidosis in the setting of renal failure +/- other, serum ketones not checked by primary team (urine ketones trace), check lactic acid level. Will trend AG, will place on bicarb added IVF as unlikely to have any quick rebound alkalosis with renal failure, other 5. Will place on gentle IVF, BP is soft but CXR also abnormal with some vascular congestion and pt with unspecified CHF hx. It does not appear pt received sepsis protocol fluid bolus, will bolus additional cystalloids/colloids as indicated 6. Send off BCx, f/u UCx, cont Abx, add Diflucan as yeast noted on automated UA Amrit Howard MD, EMMA
[2022-12-16] MEDS: FLUCONAZOLE 100mg IVPB 100 MG/50 ML BAG IV SCH (11:32)
[2022-12-16 12:15] LABS: Potassium 6.4 mEq/L (3.5-5.1)
--- NOTE | 2022-12-16 12:55 | P.PN ---
Date of Service: 12/16/22 Patient seen and examined. He is nonverbal. He shook his head when asked if he has any complaint. He denied pain or shortness of breath. He denied diarrhea or vomiting. Afebrile, borderline low blood pressure, leukocytosis Labs reviewed and noted metabolic acidosis, hyperkalemia. Also noted severely elevated blood sugar up to the 400s. Normal lactate. Sepsis not ruled out. DKA. Hyperkalemia. Acute on chronic kidney disease stage IV. Plan: Seen by nephrology. Transferred to the ICU and started insulin drip for DKA IV normal saline bolus-500 ml given high risk for pulmonary edema given CKD. Monitor BMP every 4 hours. [facility] for hyperkalemia per nephrology recommendation. Bicarb drip per nephrology Broad-spectrum IV antibiotics Keep n.p.o.
[2022-12-16] MEDS ORDERED: NEPRO 1,000 ML BOT FT SCH (13:00)
--- NOTE | 2022-12-16 13:11 | RAD REPORT ---
EXAM DESCRIPTION: RAD - Chest Single View - 12/16/2022 3:16 am CLINICAL HISTORY: The patient is 57 years old and is Male; COUGH TECHNIQUE: Frontal view of the chest. COMPARISON: No relevant prior studies available. FINDINGS: Lungs: Mildly prominent interstitial markings. No consolidation. Pleural space: Unremarkable. No pneumothorax. Heart: Unremarkable. Mediastinum: Unremarkable. Bones/joints: Unremarkable. Tubes, lines and devices: Tracheostomy tube in place. IMPRESSION: No acute findings in the chest. Electronically signed by: Ayush Rizzo MD 12/16/2022 3:32 AM CDT Due to temporary technical issues with the PACS/Fluency reporting system, reports are being signed by the in house radiologists without review as a courtesy to insure prompt reporting. The interpreting radiologist is fully responsible for the content of the report.
[2022-12-16] MEDS ORDERED: ALBUTEROL 2.5 MG/3 ML NEB SOL NEB ONE (13:57)
[2022-12-16] MEDS ORDERED: WATER FOR INJ,STERILE 1,000 ML with NA BICARB 8.4% 150 MEQ IV SCH ×2 (14:00)
[2022-12-16] MEDS ORDERED: SODIUM ZIRCONIUM CYCLOSILICATE 10 GM/PKT PO SCH (14:01)
[2022-12-16] MEDS ORDERED: INSULIN -REGULAR HUMAN 100 UNIT in NA CHLORIDE 0.9% 100 ML IV SCH (14:01)
[2022-12-16 14:49] LABS: Potassium 5.2 mEq/L (3.5-5.1)
[2022-12-16] MEDS: NA CHLORIDE 0.9% 500 ML IV SCH ×2 (15:01→15:09)
[2022-12-16 18:59] LABS: Potassium 4.5 mEq/L (3.5-5.1)
[2022-12-16] MEDS ORDERED: D5LR 1,000 ML IV SCH (20:00)
[2022-12-16 22:12] LABS: Potassium 4.7 mEq/L (3.5-5.1)
[2022-12-17] MEDS: PIPER TAZO 2.25 GM in NA CHLORIDE 0.9% 50 ML IV SCH ×2 (00:47→07:45)
[2022-12-17 01:40] LABS: C.diff Antigen/Toxin Ag neg : Tox neg (NEG : NEG)
[2022-12-17 02:33] LABS: Potassium 4.1 mEq/L (3.5-5.1)
[2022-12-17] MEDS: NEPRO 1,000 ML BOT FT SCH ×5 (03:22→20:39)
[2022-12-17] MEDS ORDERED: GLUCAGON 1 MG/VIAL IM PRN (03:23)
[2022-12-17] MEDS ORDERED: D50W 25 GM/50 ML SYRINGE IV PRN (03:23)
[2022-12-17] MEDS: INSULIN GLARGINE 100 UNIT/ML SQ SCH ×3 (03:33→21:13)
[2022-12-17] MEDS ORDERED: LOPERAMIDE HCL 2 MG/15 ML FT ONE (04:33)
[2022-12-17 05:24] LABS: Absolute Lymphocytes (CBC) 2.1 K/uL (0.7-4.9); Hematocrit 26.8 % (39.6-49.0); Lymphocytes % 11.6 % (15.3-44.8); MCV 78.9 fL (80-100); RBC Red Blood Cell Count 3.39 M/uL (4.33-5.43)
[2022-12-17 05:29] LABS: Albumin 2.1 g/dL (3.4-5.0); Bilirubin Total 0.5 mg/dL (0.2-1.0); Magnesium 2.6 mg/dL (1.6-2.4); Phosphorus 8.2 mg/dL (2.5-4.9); Potassium 4.3 mEq/L (3.5-5.1); Protein, Total 7.7 g/dL (6.4-8.2)
[2022-12-17] MEDS: INSULIN -REGULAR HUMAN 50 UNIT/0.5 ML ML SQ SCH ×4 (07:45→21:13)
[2022-12-17] MEDS ORDERED: INSULIN GLARGINE 100 UNIT/ML SQ SCH (09:00)
[2022-12-17 10:32] LABS: Potassium 3.9 mEq/L (3.5-5.1)
[2022-12-17] MEDS: Ringers Lactate 1,000 ML IV SCH (11:02)
--- NOTE | 2022-12-17 11:24 | P.PN ---
Subjective Date of Service: 12/17/22 Primary Care Provider: Chuy Hayes Chief Complaint: Hyperkalemia, Renal Failure Patient has no new complaint. He has been stable on oxygen by trach collar. No recorded fever. Physical Examination - Vital Signs Temperature: 97.3 F Blood Pressure: 106/64 Pulse: 87 Respirations: 18 Pulse Ox (%): 94 Assessment And Plan - Plan Physical Exam General: Alert, In no apparent distress. Neck: Tracheostomy. Respiratory: Clear to auscultation bilaterally, Normal air movement Cardiovascular: Regular rate/rhythm, Normal S1 S2 Gastrointestinal: Normal bowel sounds, No tenderness Musculoskeletal: No tenderness, left BKA, right transmetatarsal amputation. Integumentary: No rashes Neurological: Sensation intact, Normal affect Urinary: Simmons catheter. Diagnosis DKA. Hyperkalemia. Metabolic acidosis Acute on chronic kidney disease stage IV. Leukocytosis Plan: DKA Anion gap closed. Patient transition from insulin drip to subcutaneous insulin. Start GT feeding. Continue to monitor fingerstick glucose. Insulin correction scale. Leukocytosis/UTI Patient did not meet full criteria for sepsis. Leukocytosis unchanged from yesterday. Zosyn switched to IV cefepime and vancomycin. Urine culture shows yeast. Patient is also on Diflucan. Acute on chronic kidney disease stage IV/metabolic acidosis/hyperkalemia Nephrology is following. Metabolic acidosis and hyperkalemia resolved. No change in renal function. On IV hydration. Resume GT feeding. Chronic respiratory failure with hypoxia/tracheostomy Patient is stable on oxygen by trach collar. DVT prophylax: Heparin subQ
[2022-12-17] MEDS ORDERED: VANCOMYCIN 1.5 GM in NA CHLORIDE 0.9% 500 ML IVPB ONE (12:00)
[2022-12-17] MEDS: FLUCONAZOLE 100mg IVPB 100 MG/50 ML BAG IV SCH (12:15)
[2022-12-17] MEDS: FERROUS SULFATE PO SCH (13:15)
[2022-12-17] MEDS: HOME MED 1 EA UNK (Ipratropium/Albuterol Sulfate [Iprat-Albut 0.5-3(2.5) Mg/3 Ml] 3 ML Amp IH SCH ×2 (13:15→19:15)
[2022-12-17] MEDS ORDERED: HOME MED 1 EA UNK (Hydralazine Hcl [Hydralazine Hcl] 50 MG Tablet) PO SCH (14:00)
[2022-12-17 14:49] LABS: Potassium 3.8 mEq/L (3.5-5.1)
--- NOTE | 2022-12-17 19:07 | PN ---
Subjective: Patient is seen in intensive care unit, room 3, at [facility]. Patient is alert, able to communicate with moving his hands and also with making gestures. He does have a tracheostomy and unable to talk because of that, question aphasia. He mentions that he has had this for over 6 months now, but less than a year. His vitals are looking relatively stable. He clinically looks comfortable. He has had some urine output in the range of about almost 300 to 500 cc over the past shift. However, his creatinine has not improved. He has been given vancomycin as well along with the cefepime and fluconazole. His urine did show some organisms growing and also his yeast in the urine came back positive. Patient is currently still with high WBC count. Other than that, overall looking stable from the nephrology point of view. Objective: Vital Signs: His blood pressure last was 133/63, his pulse has been running between 80 and 90, seems to be regular on my exam, his respiratory rate are between 14 to 18 and comfortable. He is afebrile. He denies any pain. His O2 sats are between 90% to 95% with current oxygen. Lungs: Clear anteriorly. Abdomen: Soft. Extremities: No edema. Heart: Sounds are regular. Laboratory Data: Reviewed. His WBC count is elevated still at 17.8, hemoglobin is 8.6, hematocrit is 26.8, platelet count is 725. Chemistry shows sodium 140, potassium 3.8, chloride 104, bicarb is 24. BUN and creatinine are 91 and 4.36, relatively stable compared to yesterday when they were 94 and 4.43. Glucose level has been running slightly on the higher side, but significantly improved overall with his anion gap resolved and DKA overall improved. Calcium is at 9. Microbiology does show that he has greater than 10,000 growth in the urine and he is currently on antibiotics including cefepime and vancomycin and also fluconazole for the 3+ yeast in the urine. Assessment And Plan: 1. Patient with stage chronic kidney disease 4 with now acute kidney injury. Overall, stable, but creatinine still continues to be significantly elevated. Patient is going to need very close followup of this postdischarge. He is a custodial resident, follows with Dr. Edmonds in [place]. Patient will likely need dialysis in the future. The question is if he can be stabilized and kept stable on this hospitalization to avoid need for dialysis sooner. Patient's volume status and electrolytes seemed reasonable at this point. He is developing some urine output now and improving from that point of view. Creatinine, however, continues to stay on the elevated side and has not improved yet, hopefully, will start plateauing and improving over the next few days. Patient currently is looking like he is slightly volume depleted. Blood pressures are reasonable. Dr. Howard has started some lactated Ringer's, this morning. I agree with IV volume repletion with close monitoring. 2. Hyperkalemia. At this point, this is not an issue. Patient is overall improved. His acidosis is also improved. Continue to monitor. 3. Metabolic acidosis, question in setting of diabetic ketoacidosis. At this point, bicarb level is good. Patient does have some hyperglycemia. This is being monitored with insulin boluses and protocol. I appreciate all the assistance from the hospitalist. Blood cultures, urine cultures have been done. The urine culture did show some yeast and the patient has got Diflucan. I agree with the hospitalist, increasing the antibiotic coverage with vancomycin added. He has got 1 dose of vancomycin with a followup level pending in about 2 days. I think that dose should be sufficient. Also his cefepime should cover the gram-negative while we are awaiting for the culture to show us what organisms are going to be growing from the urine. The patient clinically looks well. WBC continues to stay elevated, but hopefully with broadening the antibiotics and getting better coverage, this should improve as well. 4. Anemia. Hemoglobin is relatively stable, but in the 8 range. Given his advanced kidney disease, we will go ahead and give him a dose of Retacrit. /JOHNSON Voice ID: [id number] Report ID: [id number] KRYS
[2022-12-17] MEDS: HYDRALAZINE HCL 25 MG TABLET PO SCH (20:37)
[2022-12-17] MEDS: carvediloL 25 MG TAB FT SCH (20:38)
[2022-12-17] MEDS: HEPARIN 5000 UNIT/ML 1 ML VIAL SQ SCH (20:38)
[2022-12-17] MEDS: TAMSULOSIN 0.4 MG SR CAP PO SCH (20:38)
[2022-12-17] MEDS: CEFEPIME 1 GM in NA CHLORIDE 0.9% 100 ML IV SCH (20:39)
[2022-12-17] MEDS: LACTOBACILLUS RHAMNOSUS GG PO SCH (20:39)
[2022-12-17] MEDS ORDERED: EPOETIN ALFA-EPBX 10,000 UNIT/ML VIAL SQ SCH (21:00)
[2022-12-18] MEDS: FERROUS SULFATE PO SCH ×2 (00:53→13:15)
[2022-12-18] MEDS: HOME MED 1 EA UNK (Ipratropium/Albuterol Sulfate [Iprat-Albut 0.5-3(2.5) Mg/3 Ml] 3 ML Amp IH SCH ×4 (00:53→19:15)
[2022-12-18 04:57] LABS: Absolute Lymphocytes (CBC) 1.9 K/uL (0.7-4.9); Hematocrit 25.9 % (39.6-49.0); MCV 79.4 fL (80-100); MPV 7.6 fL (7.6-11.3); RBC Red Blood Cell Count 3.26 M/uL (4.33-5.43)
[2022-12-18 05:17] LABS: Potassium 3.7 mEq/L (3.5-5.1)
[2022-12-18] MEDS: Ringers Lactate 1,000 ML IV SCH ×2 (06:46→19:56)
[2022-12-18] MEDS: CEFEPIME 1 GM in NA CHLORIDE 0.9% 100 ML IV SCH ×2 (08:41→22:02)
[2022-12-18] MEDS: LEVOTHYROXINE SOD 0.025 MG TAB PO SCH (08:41)
[2022-12-18] MEDS: ESCITALOPRAM 20 MG TAB PO SCH (08:41)
[2022-12-18] MEDS: carvediloL 25 MG TAB FT SCH ×2 (08:42→22:02)
[2022-12-18] MEDS: HYDRALAZINE HCL 25 MG TABLET PO SCH ×3 (08:42→22:02)
[2022-12-18] MEDS: INSULIN GLARGINE 100 UNIT/ML SQ SCH ×2 (08:42→22:01)
[2022-12-18] MEDS: HEPARIN 5000 UNIT/ML 1 ML VIAL SQ SCH ×2 (08:43→22:01)
[2022-12-18] MEDS: INSULIN -REGULAR HUMAN 50 UNIT/0.5 ML ML SQ SCH ×4 (08:43→22:01)
[2022-12-18] MEDS: HOME MED 1 EA UNK (Omeprazole [Omeprazole] 10 MG Capsule.Dr) PO SCH (09:00)
[2022-12-18] MEDS ORDERED: HOME MED 1 EA UNK (Levothyroxine Sodium [Levothyroxine Sodium] 25 MCG Capsule) PO SCH (09:00)
[2022-12-18] MEDS: LACTOBACILLUS RHAMNOSUS GG PO SCH ×2 (09:00→21:00)
[2022-12-18] MEDS ORDERED: HOME MED 1 EA UNK (Escitalopram Oxalate [Lexapro] 10 MG Tablet) PO SCH (09:00)
[2022-12-18] MEDS: NEPRO 1,000 ML BOT FT SCH ×4 (09:03→22:03)
--- NOTE | 2022-12-18 11:21 | P.PN ---
Subjective Date of Service: 12/18/22 Primary Care Provider: Chuy Hayes Chief Complaint: Hyperkalemia, Renal Failure Patient has no new complaint. He has been stable on oxygen by trach collar. No recorded fever. No issues overnight. Physical Examination - Vital Signs Temperature: 97.8 F Blood Pressure: 134/63 Pulse: 85 Respirations: 18 Pulse Ox (%): 98 Assessment And Plan - Plan Physical Exam General: Alert, In no apparent distress. Neck: Tracheostomy. Respiratory: Clear to auscultation bilaterally, Normal air movement Cardiovascular: Regular rate/rhythm, Normal S1 S2 Gastrointestinal: Normal bowel sounds, No tenderness Musculoskeletal: No tenderness, left BKA, right transmetatarsal amputation. Integumentary: No rashes Neurological: Sensation intact, Normal affect Urinary: Simmons catheter. Diagnosis DKA. Hyperkalemia. Metabolic acidosis Acute on chronic kidney disease stage IV. Leukocytosis Plan: DKA Anion gap closed. Patient transition from insulin drip to subcutaneous insulin. Start GT feeding. Continue Lantus insulin and titrate. Insulin sliding scale Leukocytosis/UTI Patient did not meet full criteria for sepsis. Leukocytosis improving since antibiotics switch. Zosyn switched to IV cefepime and vancomycin. Urine culture shows yeast. Blood cultures: No growth to date. Patient is also on Diflucan. Acute on chronic kidney disease stage IV/metabolic acidosis/hyperkalemia Nephrology is following. Metabolic acidosis and hyperkalemia resolved. Renal function is improving. Continue IV hydration and GT feeding Chronic respiratory failure with hypoxia/tracheostomy Patient is stable on oxygen by trach collar. DVT prophylax: Heparin subQ
[2022-12-18] MEDS: FLUCONAZOLE 100mg IVPB 100 MG/50 ML BAG IV SCH (12:12)
--- NOTE | 2022-12-18 12:59 | PN ---
Subjective: The patient is seen at [facility] in [place]. The patient is s een in intensive care unit on the third floor. The patient is alert, able to communicate with elias helton. He seems more comfortable, more alert today, and blood pressures have improved with range now in 132 to 120 systolic, yesterday they were running in low 100s to 120 range. His sugars have continue d to run a little bit on the higher side between 150 to 300 range and the patient is getting insulin coverage for that through the hospitalist team. The patient seems to have improved from yesterday in terms of his white blood cell counts improving down since he has received vancomycin. His urine cul ture finalization is still pending. He is also on fluconazole for his yeast in the urine and his WBC s have significantly improved to 12,000 range compared to yesterday. He also has improved his creati nine significantly with the range now in 3 compared to mid to high 4 yesterday. His urine output has also improved somewhat with last shift being up to about 700 mL, whereas before that he was doing ab out 300 to 500 mL. He is getting IVF at about 60 cc an hour currently and has been tolerating that w ell. This was initiated by my partner, Dr. Howard yesterday after evaluating his labs and vitals. Physical Examination: Vital Signs: The patient's vitals are stable. Blood pressure last was 134/63, pulse was about 80 an d regular, respirations around 14 and comfortable. General: The patient is alert to do his own suctioning from the trach. When he is uncomfortable, ne eds suctioning. He is also saturating at about 98% and currently not on any oxygen. Medications: In the chart and reviewed. The patient has been given cefepime and vancomycin. Vancom ycin level was reasonable. The patient is also on fluconazole, he has responded well to that. He is also getting tamsulosin. He is also getting levothyroxine. He is getting insulin with glargine 30 units q.12 hours and insulin regular sliding scale as well. The patient is also on Lexapro. He is g etting Nepro. He is also getting carvedilol twice a day. He is also on Zofran as needed for nausea, vomiting. He is able to communicate with gestures and let the nurses know if he is uncomfortable or needs something. Laboratory Data: Reviewed. Labs showed WBC count significantly improved compared to yesterday when they were 17,008 to 20864.8. The patient's hemoglobin has been stable compared to yesterday when it was 8.6, today 8.5, hematocrit 25.9. Platelet counts also improved from 725 down to 645. Sodium 137 , potassium 3.7, chloride 104, bicarb is good at about 25, BUN and creatinine at 83 and 3.84 which is a significant improvement compared to 91 and 4.36 creatinine. The patient had gone up to almost 94 BUN and creatinine of 4.43 earlier on December 17. Actually, he was up to 93 BUN and creatinine of 4.52 , looks like that was his peak creatinine with the highest number reaching at about 4.67 actually on December 16, and since then he has been improving. Assessment And Plan: The patient with acute kidney injury on chronic kidney disease, stage 4, clinic ally stabilizing now, overall improving. The patient looks comfortable, looks interactive. His BUN and creatinine are improving. His WBC count is improving. Agree with current antibiotics, managemen t with the fluconazole, vancomycin and cefepime on board. Continue with volume repletion and hydrati on with 60 cc an hour with current IVF. We will plan to check another CBC and BMP tomorrow morning a nd adjust fluids as needed. Metabolic acidosis has improved. Bicarb is now in normal range. The can nelson is getting insulin coverage to address his hyperglycemia and will need further counseling and a ssessment outpatient as well due to keep the glucose in check. The patient's blood pressures have im proved and have stayed stable in the 120 to 130 systolic range. His heart rate is good. His breathi ng is comfortable. He does not seem volume overloaded. We will continue to follow with you. Do not hesitate to call with any questions. /JOHNSON Voice ID: [id number] Report ID: [id number]
--- NOTE | 2022-12-18 17:36 | EKG ---
Test Date: 2022-12-16 Test Time: 02:50:53 [employer]: PRUVI MEASUREMENT RESULTS: Intervals: Rate: 89 VA: 132 QRSD: 80 QT: 370 QTc: 450 [place]: P: 57 VA: 132 QRS: 83 T: 9 INTERPRETIVE STATEMENTS: Normal sinus rhythm Nonspecific T wave abnormality Abnormal ECG Compared to ECG 11/29/2022 21:36:26 T-wave abnormality now present Sinus tachycardia no longer present Electronically Signed On 12-18-22 17:34:26 CDT by Jimbo Elliott
[2022-12-18] MEDS: TAMSULOSIN 0.4 MG SR CAP PO SCH (22:02)
[2022-12-19] MEDS: LACTOBACILLUS RHAMNOSUS GG PO SCH ×2 (00:44→19:37)
[2022-12-19] MEDS: FERROUS SULFATE PO SCH ×2 (00:45→13:15)
[2022-12-19] MEDS: HOME MED 1 EA UNK (Ipratropium/Albuterol Sulfate [Iprat-Albut 0.5-3(2.5) Mg/3 Ml] 3 ML Amp IH SCH ×4 (00:45→19:15)
[2022-12-19] MEDS: Ringers Lactate 1,000 ML IV SCH ×3 (01:45→20:21)
[2022-12-19 05:01] LABS: Absolute Lymphocytes (CBC) 2.3 K/uL (0.7-4.9); Hematocrit 26.5 % (39.6-49.0); Lymphocytes % 21.3 % (15.3-44.8); MCV 79.6 fL (80-100); MPV 7.6 fL (7.6-11.3); RBC Red Blood Cell Count 3.34 M/uL (4.33-5.43)
[2022-12-19 05:28] LABS: Potassium 3.3 mEq/L (3.5-5.1)
[2022-12-19 06:08] LABS: Magnesium 2.3 mg/dL (1.6-2.4); Phosphorus 4.7 mg/dL (2.5-4.9)
[2022-12-19] MEDS: INSULIN -REGULAR HUMAN 50 UNIT/0.5 ML ML SQ SCH ×4 (07:30→20:46)
[2022-12-19] MEDS: carvediloL 25 MG TAB FT SCH ×2 (08:16→20:20)
[2022-12-19] MEDS: HYDRALAZINE HCL 25 MG TABLET PO SCH ×3 (08:16→20:20)
[2022-12-19] MEDS: CEFEPIME 1 GM in NA CHLORIDE 0.9% 100 ML IV SCH ×2 (08:17→20:19)
[2022-12-19] MEDS: HEPARIN 5000 UNIT/ML 1 ML VIAL SQ SCH ×2 (08:17→20:20)
[2022-12-19] MEDS: LEVOTHYROXINE SOD 0.025 MG TAB PO SCH (08:17)
[2022-12-19] MEDS: ESCITALOPRAM 20 MG TAB PO SCH (08:17)
[2022-12-19] MEDS: INSULIN GLARGINE 100 UNIT/ML SQ SCH ×2 (08:18→20:46)
[2022-12-19] MEDS: HOME MED 1 EA UNK (Omeprazole [Omeprazole] 10 MG Capsule.Dr) PO SCH (09:00)
[2022-12-19] MEDS ORDERED: VANCOMYCIN 1 GM in NA CHLORIDE 0.9% 250 ML IVPB SCH ×2 (10:00→12:00)
[2022-12-19] MEDS: NEPRO 1,000 ML BOT FT SCH ×4 (11:21→20:21)
--- NOTE | 2022-12-19 12:47 | P.PN ---
Subjective Date of Service: 12/19/22 Primary Care Provider: Chuy Hayes Chief Complaint: Hyperkalemia, Renal Failure Patient has no new complaint. He has been stable on oxygen by trach collar. Blood sugar readings improved. Physical Examination - Vital Signs Temperature: 97.2 F Blood Pressure: 117/66 Pulse: 80 Respirations: 14 Pulse Ox (%): 96 - Studies Microbiology Data (last 24 hrs): 12/16/22 04:45 Clean Catch Urine [place] Count - Final >100,000 CFU/ML. 12/16/22 04:45 Clean Catch Urine - Final Assessment And Plan - Plan Physical Exam General: Alert, In no apparent distress. Neck: Tracheostomy. Respiratory: Clear to auscultation bilaterally, Normal air movement Cardiovascular: Regular rate/rhythm, Normal S1 S2 Gastrointestinal: Normal bowel sounds, No tenderness Musculoskeletal: No tenderness, left BKA, right transmetatarsal amputation. Integumentary: No rashes Neurological: Sensation intact, Normal affect Urinary: Simmons catheter. Diagnosis DKA. Hyperkalemia. Metabolic acidosis Acute on chronic kidney disease stage IV. Leukocytosis Plan: DKA Anion gap closed. Patient transitioned from insulin drip to subcutaneous insulin. Continue GT feeding. Blood sugar readings down to 69. Continue to monitor fingerstick glucose. Continue Lantus insulin and titrate. Insulin sliding scale Leukocytosis/UTI Patient did not meet full criteria for sepsis. Leukocytosis improving since antibiotics switch. Zosyn switched to IV cefepime and vancomycin. Urine culture shows yeast. Blood cultures: No growth to date. Patient treated with Diflucan. Diflucan discontinued. Infectious disease consult. Acute on chronic kidney disease stage IV/metabolic acidosis/hyperkalemia Nephrology is following. Metabolic acidosis and hyperkalemia resolved. Renal function is improving. Continue IV hydration and GT feeding Chronic respiratory failure with hypoxia/tracheostomy Patient is stable on oxygen by trach collar. DVT prophylax: Heparin subQ
[2022-12-19] MEDS: FLUCONAZOLE 200mg IVPB 200 MG/100 ML BAG IV SCH (13:40)
[2022-12-19] MEDS ORDERED: FLUCONAZOLE 100mg IVPB 100 MG/50 ML BAG IV SCH ×2 (14:00→21:00)
[2022-12-19] MEDS: TAMSULOSIN 0.4 MG SR CAP PO SCH (20:20)
[2022-12-19] MEDS ORDERED: LOPERAMIDE HCL 2 MG CAPSULE PO STA (20:36)
--- NOTE | 2022-12-19 22:18 | P.PN ---
Date of Service: 12/19/22 Vital Signs Temp Pulse Resp BP Pulse Ox 97.0 F 80 20 157/71 H 99 12/19/22 20:00 12/19/22 20:20 12/19/22 20:00 12/19/22 20:20 12/19/22 20:00 Medications Albuterol Sulfate (Albuterol 2.5 Mg/3 Ml Neb Radha) 2.5 mg NEB [id number] PRN PRN Reason: SHORTNESS OF BREATH Carvedilol (Carvedilol 25 Mg Tab) 25 mg FT BID [facility] Last Admin: 12/19/22 20:20 Dose: 25 mg Enteral Nutritional Formula (Nepro 1,000 Ml Bot) 240 ml FT QID [facility] Last Admin: 12/19/22 20:21 Dose: 240 ml Escitalopram Oxalate (Escitalopram 20 Mg Tab) 10 mg PO DAILY [facility] Last Admin: 12/19/22 08:17 Dose: 10 mg Glucagon (Glucagon 1 Mg/Vial) 1 mg IM 1X PRN; Protocol PRN Reason: HYPOGLYCEMIA Heparin Sodium (Porcine) (Heparin 5000 Unit/Ml 1 Ml Vial) 5,000 unit SQ Q12HR [facility] Last Admin: 12/19/22 20:20 Dose: 5,000 unit Home Med (Omeprazole [Omeprazole]) 1 cap PO DAILY [facility] Last Admin: 12/19/22 09:00 Dose: Not Given Home Med (Lactobacillus Rhamnosus Gg [Culturelle]) 1 cap PO BID [facility] Last Admin: 12/19/22 19:37 Dose: Not Given Home Med (Ipratropium/Albuterol Sulfate [Iprat-Albut 0.5-3(2.5) Mg/3 Ml]) 3 ml IH Q6H [facility] Last Admin: 12/19/22 19:15 Dose: Not Given Home Med (Ferrous Sulfate [Ferrous Sulfate]) 5 ml PO Q12H [facility] Last Admin: 12/19/22 13:15 Dose: Not Given Hydralazine HCl (Hydralazine Hcl 25 Mg Tablet) 50 mg PO TID [facility] Last Admin: 12/19/22 20:20 Dose: 50 mg Dextrose (Dextrose 10% Water Iv Soln.) 125 mls @ 0 mls/hr IV PRN PRN; Protocol PRN Reason: HYPOGLYCEMIA Lactated Ringer's (Lactated Ringers) 1,000 mls @ 60 mls/hr IV .[id number] [facility] Last Admin: 12/19/22 20:21 Dose: 1,000 mls Cefepime HCl 1 gm/ Sodium (Chloride) 100 mls @ 200 mls/hr IV Q12HR [facility]; Protocol Last Admin: 12/19/22 20:19 Dose: 100 mls Vancomycin HCl 1 gm/ Sodium (Chloride) 250 mls @ 250 mls/hr IVPB Q48H [facility]; Protocol Fluconazole (Diflucan 200 Mg/100 Ml Ivpb (Premix)) 200 mg in 100 mls @ 100 mls/hr IV 1700 [facility]; Protocol Stop: 12/29/22 17:59 Last Admin: 12/19/22 13:40 Dose: 100 mls Insulin Glargine (Insulin Glargine 100 Unit/Ml) 30 unit SQ Q12HR [facility] Last Admin: 12/19/22 20:46 Dose: Not Given Insulin Human Regular (Insulin -Regular Human 50 Unit/0.5 Ml Ml) 0 unit SQ ACHS [facility]; Protocol Last Admin: 12/19/22 20:46 Dose: Not Given Levothyroxine Sodium (Levothyroxine Sod 0.025 Mg Tab) 0.025 mg PO DAILY [facility] Last Admin: 12/19/22 08:17 Dose: 0.025 mg Ondansetron HCl (Ondansetron 4 Mg/2 Ml Vial) 4 mg IV Q6HP PRN PRN Reason: NAUSEA / VOMITING Sodium Chloride (Flush Normal Saline 10 Ml) 10 ml IV BID [facility] Last Admin: 12/19/22 20:21 Dose: 10 ml Tamsulosin HCl (Tamsulosin 0.4 Mg Sr Cap) 0.4 mg PO BEDTIME [facility] Last Admin: 12/19/22 20:20 Dose: 0.4 mg Microbiology Results 12/16/22 04:45 Clean Catch Urine [place] Count - Final >100,000 CFU/ML. 12/16/22 04:45 Clean Catch Urine - Final Assessment/ Plan: Nephrology No dyspnea No chest pain No acute events overnight Limited IH/ ROS due to mental status Vitals, medications, blood work and imaging reviewed in the chart. NAD. NCAT. MMM. Neck supple/ Trach. Normal respiratory effort. RRR. Abd ND. No C/C. LE Edema none. No rash. Awake. No speech. Left BKA. Stage III KATLYN in the setting of hypovolemia CKD III/ IV -No NSAIDs -Change IVF 1/2NS Hypokalemia -Replete potassium HTN with CKD -Continue Coreg DM II with CKD -Continue Lantus -RISS Anemia in chronic illness -Retacrit prn -Continue iron
[2022-12-19] MEDS: NACHLORIDE 0.45% 1,000 ML IV SCH (23:07)
[2022-12-20] MEDS: HOME MED 1 EA UNK (Ipratropium/Albuterol Sulfate [Iprat-Albut 0.5-3(2.5) Mg/3 Ml] 3 ML Amp IH SCH ×4 (01:15→19:15)
[2022-12-20] MEDS: FERROUS SULFATE PO SCH ×2 (01:15→13:15)
[2022-12-20 04:37] LABS: Magnesium 2.2 mg/dL (1.6-2.4); Phosphorus 2.8 mg/dL (2.5-4.9)
[2022-12-20] MEDS ORDERED: D10W 250 ML IV SCH (04:57)
[2022-12-20] MEDS ORDERED: DEXTROSE 10%-WATER 500 ML IV ONE (04:59)
[2022-12-20 05:10] VITALS: BMI 21.2
[2022-12-20] MEDS: KCL 20 MEQ/100 mL IVPB 20 MEQ/100 ML BAG IV SCH ×2 (05:52→09:50)
--- NOTE | 2022-12-20 06:57 | P.PN ---
Date of Service: 12/20/22 Subjective: Doing okay this morning breathing is back to normal no nausea / dizziness / tingling no new problems per patient ROS: 10 point ROS as noted above, otherwise negative Physical Exam: GEN: Alert, NAD HEENT: Normal conjunctiva, sclera anicteric, trach CV: Regular rate and rhythm, no edema Pulm: Nonlabored respirations on trach collar -10 L ABD: Soft, nontender, nondistended, G-tube in place Integumentary: No rashes : ortega in place Neuro: Normal speech, normal affect Ortega in place GT in place vitals reviewed Problem List: DKA, resolved Hyperkalemia Metabolic acidosis, resolved KATLYN on CKD IV Leukocytosis DKA, resolved Anion gap closed. resolved Continue GT feeding. glucose low this morning; decreased long acting insulin 12/20 sliding scale insulin Leukocytosis/UTI recentj hospitalization for aspiration pneumonia Zosyn switched to IV cefepime and vancomycin Leukocytosis improving since antibiotic switch ID consulted Urine culture: shows yeast, non-gavino Blood cultures: NGTD Patient treated with Diflucan KATLYN on CKDIV /metabolic acidosis/hyperkalemia Nephrology consulted Renal function is improving Metabolic acidosis and hyperkalemia resolved Continue IV hydration and GT feeding Chronic respiratory failure with hypoxia/tracheostomy Patient is stable on oxygen by trach collar still requiring 10L, wean VTE: Heparin Code: Full Dispo: NH ~2 days, [facility] resident
[2022-12-20] MEDS: INSULIN -REGULAR HUMAN 50 UNIT/0.5 ML ML SQ SCH ×4 (07:30→21:00)
[2022-12-20] MEDS: LACTOBACILLUS RHAMNOSUS GG PO SCH ×2 (09:00→21:00)
[2022-12-20] MEDS: HEPARIN 5000 UNIT/ML 1 ML VIAL SQ SCH ×2 (09:00→21:38)
[2022-12-20] MEDS: HOME MED 1 EA UNK (Omeprazole [Omeprazole] 10 MG Capsule.Dr) PO SCH (09:00)
--- NOTE | 2022-12-20 09:02 | P.CNS ---
Date of Consult: 12/20/22 Reason for Consult: UTI, Sepsis Primary Care Provider: Chuy Hayes Chief Complaint: Hyperkalemia, Renal Failure History of Present Illness: Patient is a 57 yo male with a history of hypertension, COPD, CHF, hx CVA, chronic respiratory failure tracheostomy dependent, PEG tube, diabetes mellitus type 1, and CKD who presented to the ED from group home for hyperkalemia on routine labs. ED workup revealed hyperglycemia, leukocytosis, hypotension and hyperkalemia. Of note, he was recently hospitalized in the [facility] for septic shock secondary to aspiration pneumonia. Allergies Sulfa (Sulfonamide Antibiotics) Allergy (Verified 05/13/19 16:25) Itching/Hives/Rash Home medications list reviewed: Yes Home Medications: Acetaminophen 2 tab .ROUTE Q4H PRN 10/22/22 Amlodipine [Norvasc*] 1 tab .ROUTE DAILY 10/22/22 Atorvastatin Calcium [Lipitor*] 1 tab .ROUTE BEDTIME 10/22/22 Budesonide [Pulmicort*] 2 ml .ROUTE Q12H 10/22/22 Carvedilol [Coreg] 1 tab .ROUTE BID 10/22/22 Ferrous Sulfate 5 ml .ROUTE Q12H 10/22/22 Insulin Glargine,Hum.rec.anlog [Lantus Solostar] 30 units SQ Q12H 10/22/22 Insulin Lispro 1 units SQ AC 10/22/22 Lactulose [Enulose] 30 ml .ROUTE Q6H PRN 10/22/22 Levothyroxine Sodium 1 tab .ROUTE DAILY 10/22/22 Omeprazole 1 cap .ROUTE DAILY 10/22/22 Ondansetron [Zofran (Odt)*] 1 tab PO Q6H PRN 10/22/22 Tamsulosin HCl [Flomax] 1 cap .ROUTE BEDTIME 10/22/22 Nepro 240 ml FT QID bot 10/24/22 Aspirin [Aspirin EC 81 MG] 81 mg .ROUTE DAILY 12/16/22 Escitalopram Oxalate [Lexapro] 1 tab .ROUTE DAILY 12/16/22 Hydralazine HCl 1 tab .ROUTE TID 12/16/22 Hydroxyzine HCl [Atarax] 1 tab .ROUTE Q8H PRN 12/16/22 Ipratropium/Albuterol Sulfate [Iprat-Albut 0.5-3(2.5) mg/3 ml] 3 ml .ROUTE Q6H 12/16/22 Lactobacillus Rhamnosus GG [Culturelle] 1 cap .ROUTE BID 12/16/22 Levofloxacin [Levaquin] 1 tab .ROUTE DAILY 12/16/22 Zinc Oxide [Zinc Oxide 20%*] 1 appl TOP Q12H PRN 12/16/22 - Past Medical/Surgical History Diabetic: Yes -: DM I -: CKD IV (Dr. Edmonds) -: CAD -: Hypertension -: Hyperlipidemia -: PVD -: History TIA/CVA -: Congestive Heart Failure -: Appendectomy -: Left below-knee amputation -: Multiple surgeries to the right lower extremity -: Right foot all toes amputated- february 2019 Psychosocial/ Personal History: Patient lives at [facility]. - Family History Mother Medical History: Cancer - Social History Smoking Status: Unknown if ever smoked Alcohol use: Yes CD- Drugs: No Caffeine use: Yes Place of Residence: Home Review of Systems 10-point ROS is otherwise unremarkable Physical Examination Temp Pulse Resp BP Pulse Ox 98.3 F 86 16 128/67 97 12/20/22 08:00 12/20/22 08:00 12/20/22 08:00 12/20/22 08:00 12/20/22 08:00 General: In no apparent distress HEENT: Atraumatic, Normocephalic Neck: JVD not distended, Other (Tracheostomy) Respiratory: Diminished, Other (tracheostomy on trach collar 10L) Cardiovascular: No edema, Normal pulses Gastrointestinal: Normal bowel sounds, Soft and benign, Non-distended, Other (PEG tube) Musculoskeletal: No clubbing, No swelling, Other (Left BKA) Integumentary: Pressure ulcer (sacrum stage 2), Other (moisture associated dermatitis bilateral buttock) Urinary: Simmons catheter Laboratory Data - Reviewed Microbiology Data - Reviewed Imagings Data: - Reviewed Conclusions/Impression: Problem List CHF Hx CVA Hypertension Hyperlipidemia Chronic Respiratory Failure Tracheostomy Dependent CKD stage 4 DKA, resolved Diabetes Mellitus Type 1 Anemia Urinary Tract Infection Moderate PCM Sepsis Urinary Tract Infection - [facility] of Septic Shock secondary to aspiration pneumonia. - XR Chest 12/16 with no acute findings - Blood cultures 12/16: No growth to date - Urine culture 12/16: 3+ yeast not gavino albicans - On Cefepime (12/17), Vancomycin and Fluconazole (12/19) Leukocytosis Improving (WBC 11) Afebrile Recommendations - Fungal UTI: Continue Fluconazole x 14 days - Continue Cefepime and Vancomycin for now. - Obtain repeat blood cultures - Monitor WBC and fever trends - Barrier cream to buttocks/sacrum and turn patient Q2H - Continue supportive care and nutritional support as needed ID will follow up and adjust antibiotics as needed. Case discussed with Landen Merrill. Thank you Dr. Blair for consult.
[2022-12-20] MEDS: NEPRO 1,000 ML BOT FT SCH ×5 (09:49→21:47)
[2022-12-20] MEDS: CEFEPIME 1 GM in NA CHLORIDE 0.9% 100 ML IV SCH ×2 (09:49→22:00)
[2022-12-20] MEDS: carvediloL 25 MG TAB FT SCH ×2 (09:50→21:37)
[2022-12-20] MEDS: LEVOTHYROXINE SOD 0.025 MG TAB PO SCH (09:50)
[2022-12-20] MEDS: HYDRALAZINE HCL 25 MG TABLET PO SCH ×3 (09:50→21:38)
[2022-12-20] MEDS: ESCITALOPRAM 20 MG TAB PO SCH (09:50)
[2022-12-20] MEDS: NACHLORIDE 0.45% 1,000 ML IV SCH (13:31)
[2022-12-20] MEDS ORDERED: KCL 20 MEQ/100 mL IVPB 20 MEQ/100 ML BAG IV SCH (17:00)
[2022-12-20] MEDS: FLUCONAZOLE 200mg IVPB 200 MG/100 ML BAG IV SCH (17:01)
[2022-12-20] MEDS: Pantoprazole (granules) 40 MG/BLIST PACKET FT SCH (17:02)
[2022-12-20] MEDS: TAMSULOSIN 0.4 MG SR CAP PO SCH (21:36)
[2022-12-20] MEDS: INSULIN GLARGINE 100 UNIT/ML SQ SCH (21:42)
--- NOTE | 2022-12-20 22:38 | P.PN ---
Date of Service: 12/20/22 Vital Signs Temp Pulse Resp BP Pulse Ox 98.7 F 86 18 164/77 H 93 12/20/22 20:00 12/20/22 21:37 12/20/22 20:00 12/20/22 21:37 12/20/22 20:00 Medications Albuterol Sulfate (Albuterol 2.5 Mg/3 Ml Neb Radha) 2.5 mg NEB [id number] PRN PRN Reason: SHORTNESS OF BREATH Carvedilol (Carvedilol 25 Mg Tab) 25 mg FT BID [facility] Last Admin: 12/20/22 21:37 Dose: 25 mg Enteral Nutritional Formula (Nepro 1,000 Ml Bot) 240 ml FT QID [facility] Last Admin: 12/20/22 21:47 Dose: 240 ml Escitalopram Oxalate (Escitalopram 20 Mg Tab) 10 mg PO DAILY [facility] Last Admin: 12/20/22 09:50 Dose: 10 mg Glucagon (Glucagon 1 Mg/Vial) 1 mg IM 1X PRN; Protocol PRN Reason: HYPOGLYCEMIA Heparin Sodium (Porcine) (Heparin 5000 Unit/Ml 1 Ml Vial) 5,000 unit SQ Q12HR [facility] Last Admin: 12/20/22 21:38 Dose: 5,000 unit Home Med (Lactobacillus Rhamnosus Gg [Culturelle]) 1 cap PO BID [facility] Last Admin: 12/20/22 21:00 Dose: Not Given Home Med (Ipratropium/Albuterol Sulfate [Iprat-Albut 0.5-3(2.5) Mg/3 Ml]) 3 ml IH Q6H [facility] Last Admin: 12/20/22 19:15 Dose: Not Given Home Med (Ferrous Sulfate [Ferrous Sulfate]) 5 ml PO Q12H [facility] Last Admin: 12/20/22 13:15 Dose: Not Given Hydralazine HCl (Hydralazine Hcl 25 Mg Tablet) 50 mg PO TID [facility] Last Admin: 12/20/22 21:38 Dose: 50 mg Dextrose (Dextrose 10% Water Iv Soln.) 125 mls @ 0 mls/hr IV PRN PRN; Protocol PRN Reason: HYPOGLYCEMIA Cefepime HCl 1 gm/ Sodium (Chloride) 100 mls @ 200 mls/hr IV Q12HR [facility]; Protocol Last Admin: 12/20/22 22:00 Dose: 100 mls Vancomycin HCl 1 gm/ Sodium (Chloride) 250 mls @ 250 mls/hr IVPB Q48H [facility]; Protocol Fluconazole (Diflucan 200 Mg/100 Ml Ivpb (Premix)) 200 mg in 100 mls @ 100 mls/hr IV 1700 [facility]; Protocol Stop: 12/29/22 17:59 Last Admin: 12/20/22 17:01 Dose: 100 mls Sodium Chloride (Sodium Chloride 0.45%) 1,000 mls @ 75 mls/hr IV .[id number] [facility] Last Admin: 12/20/22 13:31 Dose: 1,000 mls Insulin Glargine (Insulin Glargine 100 Unit/Ml) 15 unit SQ Q12HR [facility] Last Admin: 12/20/22 21:42 Dose: 15 unit Insulin Human Regular (Insulin -Regular Human 50 Unit/0.5 Ml Ml) 0 unit SQ ACHS [facility]; Protocol Last Admin: 12/20/22 16:30 Dose: Not Given Levothyroxine Sodium (Levothyroxine Sod 0.025 Mg Tab) [facility] Ondansetron HCl (Ondansetron 4 Mg/2 Ml Vial) 4 mg IV Q6HP PRN PRN Reason: NAUSEA / VOMITING Pantoprazole Sodium (Pantoprazole (Granules) 40 Mg/Blist Packet) 1 mg FT DAILY [facility] Last Admin: 12/20/22 17:02 Dose: 1 mg Sodium Chloride (Flush Normal Saline 10 Ml) 10 ml IV BID [facility] Last Admin: 12/20/22 22:02 Dose: 10 ml Tamsulosin HCl (Tamsulosin 0.4 Mg Sr Cap) 0.4 mg PO BEDTIME [facility] Last Admin: 12/20/22 21:36 Dose: 0.4 mg Microbiology Results 12/16/22 04:45 Clean Catch Urine [place] Count - Final >100,000 CFU/ML. 12/16/22 04:45 Clean Catch Urine - Final Assessment/ Plan: Nephrology No dyspnea No chest pain No acute events overnight Limited IH/ ROS due to mental status Vitals, medications, blood work and imaging reviewed in the chart. NAD. NCAT. MMM. Neck supple/ Trach. Normal respiratory effort. RRR. Abd ND. No C/C. LE Edema none. No rash. Awake. No speech. Left BKA. Stage III KATLYN in the setting of hypovolemia CKD III/ IV -No NSAIDs -Continue IVF 1/2NS Hypokalemia -Replete potassium prn HTN with CKD -Continue Coreg DM II with CKD -Continue Lantus -RISS Anemia in chronic illness -Retacrit prn -Continue iron
[2022-12-21] MEDS: HOME MED 1 EA UNK (Ipratropium/Albuterol Sulfate [Iprat-Albut 0.5-3(2.5) Mg/3 Ml] 3 ML Amp IH SCH ×4 (01:15→18:19)
[2022-12-21] MEDS: FERROUS SULFATE PO SCH ×2 (01:15→13:15)
[2022-12-21] MEDS: NACHLORIDE 0.45% 1,000 ML IV SCH ×2 (01:40→05:52)
[2022-12-21 03:37] LABS: Absolute Lymphocytes (CBC) 2.2 K/uL (0.7-4.9); Hematocrit 24.7 % (39.6-49.0); Lymphocytes % 22.9 % (15.3-44.8); MCV 79.3 fL (80-100); MPV 7.2 fL (7.6-11.3); RBC Red Blood Cell Count 3.12 M/uL (4.33-5.43)
[2022-12-21] MEDS: LEVOTHYROXINE SOD 0.025 MG TAB PO SCH (05:52)
--- NOTE | 2022-12-21 07:02 | P.PN ---
Date of Service: 12/21/22 Subjective: Doing alright today no new / worsening problems stable, afebrile ROS: 10 point ROS as noted above, otherwise negative Physical Exam: GEN: Alert, NAD HEENT: Normal conjunctiva, sclera anicteric, trach CV: Regular rate and rhythm, no edema Pulm: Nonlabored respirations on trach collar -8 L ABD: Soft, nontender, nondistended, G-tube in place Integumentary: No rashes : ortega in place Neuro: normal affect Ortega in place GT in place vitals reviewed Problem List: DKA, resolved Hyperkalemia Metabolic acidosis, resolved KATLYN on CKD IV Leukocytosis DKA, resolved Anion gap closed. resolved Continue GT feeding. glucose low 12/20 morning; decreased long acting insulin 12/20 sliding scale insulin Leukocytosis/UTI recent hospitalization for aspiration pneumonia Zosyn switched to IV cefepime and vancomycin Leukocytosis improving since antibiotic switch ID consulted Urine culture: shows yeast, non-gavino Blood cultures: NGTD Continue with Diflucan x14 days total will confirm with ID, recommendations for antibiotics KATLYN on CKDIV /metabolic acidosis/hyperkalemia Nephrology consulted Renal function is improving Metabolic acidosis and hyperkalemia resolved continue GT feeding, free water flushes dc IVF Chronic respiratory failure with hypoxia/tracheostomy Patient is stable on oxygen by trach collar wean O2 further VTE: Heparin, SQ Code: Full Dispo: NH likely ready by Monday, snf resident
[2022-12-21] MEDS: INSULIN -REGULAR HUMAN 50 UNIT/0.5 ML ML SQ SCH ×4 (07:30→21:52)
[2022-12-21] MEDS: LACTOBACILLUS RHAMNOSUS GG PO SCH ×2 (09:00→21:00)
[2022-12-21] MEDS: INSULIN GLARGINE 100 UNIT/ML SQ SCH ×2 (09:00→21:52)
--- NOTE | 2022-12-21 09:23 | P.PN ---
Date of Service: 12/21/22 Chief Complaint: Hyperkalemia, Renal Failure Subjective No new changes. Patient in bed resting, not in apparent distress. No complaints at this time. No acute events reported overnight. Physical Examination Temp Pulse Resp BP Pulse Ox 97.6 F 99 H 18 140/75 97 12/21/22 04:00 12/21/22 04:00 12/21/22 04:00 12/21/22 04:00 12/21/22 04:00 General: In no apparent distress HEENT: Atraumatic, Normocephalic Neck: JVD not distended, Tracheostomy noted Respiratory: Diminished, tracheostomy on trach collar 8L Cardiovascular: No edema, Normal pulses Gastrointestinal: Normal bowel sounds, Soft and benign, Non-distended, G-tube Musculoskeletal: No clubbing, No swelling, Left BKA Integumentary: Pressure ulcer sacrum stage 2. Urinary: Simmons catheter draining light yellow urine Studies Laboratory Data - Reviewed Microbiology Data - Reviewed Imagings Data: - Reviewed Medications List Reviewed: Yes Assessment and Plan Problem List CHF Hx CVA Hypertension Hyperlipidemia Chronic Respiratory Failure Tracheostomy Dependent CKD stage 4 DKA, resolved Diabetes Mellitus Type 1 Anemia Urinary Tract Infection Moderate PCM * Allergy: Sulfa * Sepsis Urinary Tract Infection - Patient was recently discharged from the [facility] after treatment of Septic Shock secondary to aspiration pneumonia. halfway resident. - Chronic urinary catheter - XR Chest 12/16 with no acute findings - Urine culture 12/16: 3+ yeast not gavino albicans, colony count >100,000 CFU/mL - Currently On Cefepime (12/17), Vancomycin and Fluconazole (12/19) - Blood cultures 12/16: 1 out of 4 bottles positive. Likely a contaminant. Repeat blood cultures pending. Leukocytosis Improving (WBC 11 -> 9.4 - on 12/21) Afebrile Recommendations - Fungal UTI: Continue Fluconazole x 14 days - Continue current antibiotics for now. Repeat blood culture results pending. - Monitor WBC and fever trends - Barrier cream to buttocks/sacrum and turn patient Q2H - Continue supportive care and nutritional support ID will follow up and monitor patient closely. Case discussed with Flavio Merrill
[2022-12-21] MEDS ORDERED: VANCOMYCIN 1 GM in NA CHLORIDE 0.9% 250 ML IVPB SCH (10:00)
[2022-12-21] MEDS: Pantoprazole (granules) 40 MG/BLIST PACKET FT SCH (11:21)
[2022-12-21] MEDS: carvediloL 25 MG TAB FT SCH ×2 (11:22→21:49)
[2022-12-21] MEDS: ESCITALOPRAM 20 MG TAB PO SCH (11:22)
[2022-12-21] MEDS: CEFEPIME 1 GM in NA CHLORIDE 0.9% 100 ML IV SCH (11:23)
[2022-12-21] MEDS: HYDRALAZINE HCL 25 MG TABLET PO SCH ×3 (11:23→21:49)
[2022-12-21] MEDS: NEPRO 1,000 ML BOT FT SCH ×5 (11:23→21:51)
[2022-12-21] MEDS: HEPARIN 5000 UNIT/ML 1 ML VIAL SQ SCH ×2 (12:03→21:50)
--- NOTE | 2022-12-21 12:09 | P.PN ---
Date of Service: 12/21/22 Nephrology note (S) Pt's overall condition better since admission last week, seen resting comfortably, no acute complaints (O) Vitals reviewed in the EMR General: In no apparent distress, Cachectic HEENT: Atraumatic, Normocephalic Neck: Other (trach with trach collar) Respiratory: Other (b/l air entry, no wheezes) Cardiovascular: Regular rate/rhythm, Diastolic murmur Gastrointestinal: Soft and benign, Non-distended, Other (PEG tube present) Musculoskeletal: No swelling, Other (Muscle mass loss) Integumentary: Other (Did not examine for decubitus) Neurological: Sleeping so did not awaken Laboratory Data (last 24 hrs) Reviewed Conclusions/Impression: A/P) 1. Stage III ARF per JEFFREY definition with presenting Cr level > 4 mg/dl last week on underlying CKD NOS, but suspected advanced given prior/recent labs, pt with other prior KATLYN episodes. Cr level has downward trended nicely from admission levels, cont to monitor. 2. Renal imaging did not show obstructive uropathy, pt with chronic ortega it appears. 3. Hyperkalemia last week in the setting of renal failure, insulin deficiency and acidosis since resolved. Maintain off ACEi or ARB therapy. 4. AG metab acidosis on admission resolved. 5. D/c IVF. 6. BP trending up, pt has listed anti hypertensives on [place] med list, will slowly re-introduce some but avoid relative hypotension 7. Will place on maintenance free water boluses. Amrit Howard MD, EMMA
[2022-12-21] MEDS: FLUCONAZOLE 200mg IVPB 200 MG/100 ML BAG IV SCH (17:39)
[2022-12-21] MEDS: TAMSULOSIN 0.4 MG SR CAP PO SCH (21:50)
[2022-12-22] MEDS: FERROUS SULFATE PO SCH ×2 (01:15→12:58)
[2022-12-22] MEDS: HOME MED 1 EA UNK (Ipratropium/Albuterol Sulfate [Iprat-Albut 0.5-3(2.5) Mg/3 Ml] 3 ML Amp IH SCH ×4 (01:15→19:15)
[2022-12-22 04:03] LABS: Absolute Lymphocytes (CBC) 2.9 K/uL (0.7-4.9); Lymphocytes % 25.7 % (15.3-44.8); MCV 79.3 fL (80-100); MPV 7.6 fL (7.6-11.3); RBC Red Blood Cell Count 3.15 M/uL (4.33-5.43)
[2022-12-22 04:16] LABS: Potassium 3.8 mEq/L (3.5-5.1)
[2022-12-22] MEDS: LEVOTHYROXINE SOD 0.025 MG TAB PO SCH (05:37)
--- NOTE | 2022-12-22 07:04 | P.PN ---
Date of Service: 12/22/22 Subjective: Doesn't feel well today having trouble breathing, back up to 10L from 8 (sensation of something stuck in throat can't get out) feels like he's secreting more fluid in throat and complains that frequency of suctioning is not enough although did not report any vomiting to me yesterday, now states he vomited early AM yesterday ROS: 10 point ROS as noted above, otherwise negative Physical Exam: GEN: Alert, NAD HEENT: Normal conjunctiva, sclera anicteric, trach with increased secretions CV: Regular rate and rhythm, no edema Pulm: Nonlabored respirations on trach collar -10 L, +transmitted upper airway sounds, slight rhonchi at right base ABD: Soft, nontender, nondistended, G-tube in place : ortega in place Neuro: normal affect, responds appropriately Ortega in place GT in place vitals reviewed Problem List: DKA, resolved Hyperkalemia Metabolic acidosis, resolved KATLYN on CKD IV Leukocytosis UTI, yeast Aspiration pneumonitis / pneumonia DKA, resolved Anion gap closed. resolved Continue GT feeding. glucose low 12/20 morning; decreased long acting insulin 12/20 increased 12/22 sliding scale insulin Leukocytosis/UTI recent hospitalization for aspiration pneumonia Zosyn switched to IV cefepime and vancomycin ID consulted - dc'd antibiotics 12/21 Urine culture: shows yeast, non-gavino Blood cultures: NGTD Continue with Diflucan x14 days total Aspiration pneumonitis / pneumonia 12/22, reported to me that he had emesis 12/21 AM CXR (12/22) increased R lower lobe opacity, possible aspiration pneumonitis start zosyn 12/22; renally dosed KATLYN on CKDIV /metabolic acidosis/hyperkalemia Nephrology consulted Renal function improved Metabolic acidosis and hyperkalemia resolved continue GT feeding, free water flushes off IVF Chronic respiratory failure with hypoxia/tracheostomy Patient is stable on oxygen by trach collar wean O2 further CXR 12/22 ordered VTE: Heparin, SQ Code: Full Dispo: NH in a few days need to monitor with recent aspiration, restarting antibiotics need further improvement of O2 supplementation Mother updated at bedside on 12/22 updated over phone on 12/22
[2022-12-22 08:09] LABS: Blood Morphology Comment NOT SEEN (NOT SEEN); Platelet Estimate ADEQ
[2022-12-22] MEDS: Pantoprazole (granules) 40 MG/BLIST PACKET FT SCH ×2 (09:00→10:00)
[2022-12-22] MEDS: LACTOBACILLUS RHAMNOSUS GG PO SCH ×2 (09:00→21:00)
[2022-12-22] MEDS: INSULIN GLARGINE 100 UNIT/ML SQ SCH ×2 (09:34→22:58)
[2022-12-22] MEDS: INSULIN -REGULAR HUMAN 50 UNIT/0.5 ML ML SQ SCH ×4 (09:34→21:00)
--- NOTE | 2022-12-22 09:34 | P.PN ---
Date of Service: 12/22/22 Chief Complaint: Hyperkalemia, Renal Failure Subjective No new changes. No acute events reported overnight. Patient in bed not in apparent distress, on 8L O2 via trach collar Afebrile. Physical Examination Temp Pulse Resp BP Pulse Ox 98.4 F 79 16 147/68 H 93 12/22/22 04:00 12/22/22 04:00 12/22/22 04:00 12/22/22 04:00 12/22/22 04:00 General: In no apparent distress HEENT: Atraumatic, Normocephalic Neck: JVD not distended, Tracheostomy noted Respiratory: Diminished, tracheostomy on trach collar 10L Cardiovascular: No edema, Normal pulses Gastrointestinal: Normal bowel sounds, Soft and benign, Non-distended, G-tube Musculoskeletal: No clubbing, No swelling, Left BKA. Integumentary: Sacral pressure injury stage 2 Urinary: Simmons catheter draining lyellow urine Studies Laboratory Data - Reviewed Microbiology Data - Blood cultures 12/16: No growth to date - Urine culture 12/16: 3+ yeast not gavino albicans; colony count >100,000 CFU/mL Imagings Data: - Reviewed Medications List Reviewed: Yes Assessment and Plan Problem List CHF Hx CVA Hypertension Hyperlipidemia Chronic Respiratory Failure Tracheostomy Dependent CKD stage 4 DKA, resolved Diabetes Mellitus Type 1 Anemia Urinary Tract Infection Moderate PCM * Allergy: Sulfa * Sepsis Urinary Tract Infection - Patient was recently discharged from the [facility] after treatment of Septic Shock secondary to aspiration pneumonia. - Chronic urinary catheter - XR Chest 12/16 with no acute findings - Urine culture 12/16: 3+ yeast not gavino albicans; colony count >100,000 CFU/mL - On Fluconazole (12/19) Blood culture 12/16 originally with positve result in 1 of 4 bottles and patient was started on Vancomycin. Repeat blood cultures 12/21 with no growth, and Vancomycin and cefepime were discontinued. - XR Chest 12/22 pending Recommendations - Fungal UTI: Continue Fluconazole x 14 days (started 12/19) - Monitor WBC and fever trends - Barrier cream to buttocks/sacrum and turn patient Q2H - Continue supportive care and nutritional support ID will follow up and monitor patient closely. Case discussed with Flavio Merrill
[2022-12-22] MEDS: carvediloL 25 MG TAB FT SCH ×2 (09:36→22:36)
[2022-12-22] MEDS: HYDRALAZINE HCL 25 MG TABLET PO SCH ×3 (09:36→22:36)
[2022-12-22] MEDS: ESCITALOPRAM 20 MG TAB PO SCH (09:38)
[2022-12-22] MEDS: HEPARIN 5000 UNIT/ML 1 ML VIAL SQ SCH ×2 (09:38→22:58)
[2022-12-22] MEDS: NEPRO 1,000 ML BOT FT SCH ×5 (09:40→21:00)
--- NOTE | 2022-12-22 10:37 | P.PN ---
Date of Service: 12/22/22 Vital Signs Temp Pulse Resp BP Pulse Ox 98.5 F 78 18 147/70 H 100 12/22/22 08:00 12/22/22 09:36 12/22/22 08:00 12/22/22 09:36 12/22/22 08:00 Medications Albuterol Sulfate (Albuterol 2.5 Mg/3 Ml Neb Radha) 2.5 mg NEB [id number] PRN PRN Reason: SHORTNESS OF BREATH Carvedilol (Carvedilol 25 Mg Tab) 25 mg FT BID [facility] Last Admin: 12/22/22 09:36 Dose: 25 mg Enteral Nutritional Formula (Nepro 1,000 Ml Bot) 240 ml FT QID [facility] Last Admin: 12/22/22 09:40 Dose: 240 ml Escitalopram Oxalate (Escitalopram 20 Mg Tab) 10 mg PO DAILY [facility] Last Admin: 12/22/22 09:38 Dose: 10 mg Glucagon (Glucagon 1 Mg/Vial) 1 mg IM 1X PRN; Protocol PRN Reason: HYPOGLYCEMIA Heparin Sodium (Porcine) (Heparin 5000 Unit/Ml 1 Ml Vial) 5,000 unit SQ Q12HR [facility] Last Admin: 12/22/22 09:38 Dose: 5,000 unit Home Med (Lactobacillus Rhamnosus Gg [Culturelle]) 1 cap PO BID [facility] Last Admin: 12/22/22 09:00 Dose: Not Given Home Med (Ipratropium/Albuterol Sulfate [Iprat-Albut 0.5-3(2.5) Mg/3 Ml]) 3 ml IH Q6H [facility] Last Admin: 12/22/22 07:15 Dose: Not Given Home Med (Ferrous Sulfate [Ferrous Sulfate]) 5 ml PO Q12H [facility] Last Admin: 12/22/22 01:15 Dose: Not Given Hydralazine HCl (Hydralazine Hcl 25 Mg Tablet) 50 mg PO TID [facility] Last Admin: 12/22/22 09:36 Dose: 50 mg Dextrose (Dextrose 10% Water Iv Soln.) 125 mls @ 0 mls/hr IV PRN PRN; Protocol PRN Reason: HYPOGLYCEMIA Fluconazole (Diflucan 200 Mg/100 Ml Ivpb (Premix)) 200 mg in 100 mls @ 100 mls/hr IV 1700 MIGUEL ÁNGEL; Protocol Stop: 12/29/22 17:59 Last Admin: 12/21/22 17:39 Dose: 100 mls Insulin Glargine (Insulin Glargine 100 Unit/Ml) 15 unit SQ Q12HR [facility] Last Admin: 12/22/22 09:34 Dose: 15 unit Insulin Human Regular (Insulin -Regular Human 50 Unit/0.5 Ml Ml) 0 unit SQ ACHS [facility]; Protocol Last Admin: 12/22/22 09:34 Dose: 7 unit Levothyroxine Sodium (Levothyroxine Sod 0.025 Mg Tab) 0.025 mg PO DAILYAC [facility] Last Admin: 12/22/22 05:37 Dose: 0.025 mg Ondansetron HCl (Ondansetron 4 Mg/2 Ml Vial) 4 mg IV Q6HP PRN PRN Reason: NAUSEA / VOMITING Pantoprazole Sodium (Pantoprazole (Granules) 40 Mg/Blist Packet) 40 mg FT DAILY [facility] Last Admin: 12/22/22 10:00 Dose: 40 mg Sodium Chloride (Flush Normal Saline 10 Ml) 10 ml IV BID [facility] Last Admin: 12/22/22 09:39 Dose: 10 ml Tamsulosin HCl (Tamsulosin 0.4 Mg Sr Cap) 0.4 mg PO BEDTIME [facility] Last Admin: 12/21/22 21:50 Dose: 0.4 mg Microbiology Results 12/16/22 04:45 Clean Catch Urine [place] Count - Final >100,000 CFU/ML. 12/16/22 04:45 Clean Catch Urine - Final Assessment/ Plan: Nephrology No dyspnea No chest pain No acute events overnight Limited IH/ ROS due to trach status Vitals, medications, blood work and imaging reviewed in the chart. NAD. NCAT. MMM. Neck supple/ Trach. Normal respiratory effort. RRR. Abd ND/ PEG. No C/C. LE Edema none. No rash. Awake. No speech. Left BKA. Stage III KATLYN in the setting of hypovolemia CKD III/ IV -No NSAIDs Hypokalemia -Replete potassium prn HTN with CKD -Continue Coreg -Restart Amlodipine DM II with CKD -Continue Lantus -RISS Anemia in chronic illness -Retacrit prn -Continue oral iron
[2022-12-22] MEDS: AMLODIPINE 5 MG TAB PO SCH (12:50)
--- NOTE | 2022-12-22 13:53 | RAD REPORT ---
EXAM DESCRIPTION: Cesar Single View12/22/2022 1:26 pm CLINICAL HISTORY: sob COMPARISON: December 15, 2022 FINDINGS: Mild worsening in right basilar lung opacities. No change in left basilar lung opacities. Upper lobes are clear. Heart is normal size Tracheostomy tube in place IMPRESSION: Mild worsening in right and no significant change in left basilar opacities which could indicate aspiration pneumonitis
[2022-12-22] MEDS: FLUCONAZOLE 200mg IVPB 200 MG/100 ML BAG IV SCH (17:29)
[2022-12-22] MEDS: PIPER TAZO 3.375 GM in NA CHLORIDE 0.9% 100 ML IV SCH (22:35)
[2022-12-22] MEDS: TAMSULOSIN 0.4 MG SR CAP PO SCH (22:36)
[2022-12-23] MEDS: FERROUS SULFATE PO SCH ×2 (01:03→13:15)
[2022-12-23] MEDS: HOME MED 1 EA UNK (Ipratropium/Albuterol Sulfate [Iprat-Albut 0.5-3(2.5) Mg/3 Ml] 3 ML Amp IH SCH ×4 (01:03→19:15)
[2022-12-23 03:26] LABS: Absolute Lymphocytes (CBC) 3.3 K/uL (0.7-4.9); Hematocrit 25.8 % (39.6-49.0); Lymphocytes % 25.8 % (15.3-44.8); MCV 80.1 fL (80-100); MPV 7.5 fL (7.6-11.3); RBC Red Blood Cell Count 3.23 M/uL (4.33-5.43)
[2022-12-23 03:31] LABS: C-Reactive Protein 45.9 mg/L (<3.00); Potassium 3.7 mEq/L (3.5-5.1)
[2022-12-23] MEDS: LEVOTHYROXINE SOD 0.025 MG TAB PO SCH (05:54)
--- NOTE | 2022-12-23 06:52 | P.PN ---
Date of Service: 12/23/22 Subjective: Feeling much better this afternoon no new / worsening problems feels secretions are not as bad as yesterday / have improved oxygen up to 12L from 10L afebrile ROS: 10 point ROS as noted above, otherwise negative Physical Exam: GEN: Alert, NAD HEENT: Normal conjunctiva, sclera anicteric, trach in place CV: Regular rate and rhythm, no edema Pulm: Nonlabored respirations on trach collar -12 L, +transmitted upper airway sounds ABD: Soft, nontender, nondistended, G-tube in place : ortega in place Neuro: normal affect, responds appropriately Ortega in place GT in place vitals reviewed Problem List: DKA, resolved UTI, yeast Aspiration pneumonitis / pneumonia KATLYN on CKD IV Metabolic acidosis, resolved Hyperkalemia Chronic respiratory failure with hypoxia/tracheostomy DKA, resolved Anion gap closed. resolved Continue GT feeding. glucose low (12/20) morning; decreased long acting insulin (12/20) increased (12/22) sliding scale insulin Leukocytosis/UTI recent hospitalization for aspiration pneumonia Zosyn switched to IV cefepime and vancomycin ID consulted - dc'd antibiotics (12/21) Urine culture: shows yeast, non-gavino Blood cultures: NGTD Continue with Diflucan x14 days total Aspiration pneumonitis / pneumonia (12/22), reported to me that he had emesis (12/21) AM CXR (12/22): increased R lower lobe opacity, possible aspiration pneumonitis started zosyn (12/22) Zosyn switched to merrem (12/23) given prior ESBL history KATLYN on CKDIV /metabolic acidosis/hyperkalemia Nephrology consulted Renal function improved / stable Metabolic acidosis and hyperkalemia resolved continue GT feeding, free water flushes off IVF Chronic respiratory failure with hypoxia/tracheostomy wean O2 VTE: Heparin, SQ Code: Full Dispo: NH in a few days need to monitor with recent aspiration, restarting antibiotics need further improvement of O2 supplementation Mother updated at bedside on 12/23 updated over phone on 12/22
[2022-12-23] MEDS ORDERED: POTASSIUM 25 MEQ EFFERV TAB PO ONE (09:00)
[2022-12-23] MEDS: LACTOBACILLUS RHAMNOSUS GG PO SCH ×2 (09:00→21:00)
[2022-12-23] MEDS: HYDRALAZINE HCL 25 MG TABLET PO SCH ×3 (09:48→21:39)
[2022-12-23] MEDS: INSULIN GLARGINE 100 UNIT/ML SQ SCH ×2 (09:48→21:39)
[2022-12-23] MEDS: INSULIN -REGULAR HUMAN 50 UNIT/0.5 ML ML SQ SCH ×4 (09:48→21:40)
[2022-12-23] MEDS: Pantoprazole (granules) 40 MG/BLIST PACKET FT SCH (09:49)
[2022-12-23] MEDS: NEPRO 1,000 ML BOT FT SCH ×4 (09:49→21:41)
[2022-12-23] MEDS: AMLODIPINE 5 MG TAB PO SCH (09:49)
[2022-12-23] MEDS: HEPARIN 5000 UNIT/ML 1 ML VIAL SQ SCH ×2 (09:49→21:00)
[2022-12-23] MEDS: carvediloL 25 MG TAB FT SCH ×2 (09:49→21:38)
[2022-12-23] MEDS: ESCITALOPRAM 20 MG TAB PO SCH (09:49)
[2022-12-23] MEDS: PIPER TAZO 3.375 GM in NA CHLORIDE 0.9% 100 ML IV SCH (09:50)
--- NOTE | 2022-12-23 11:51 | P.PN ---
Nephrology note (S) Pt's o2 requirements via trach collar a bit higher, but pt seen resting comfortably, in no resp distress (O) Vitals reviewed in the EMR General: In no apparent distress, Cachectic HEENT: Atraumatic, Normocephalic Neck: Other (trach with trach collar) Respiratory: Other (b/l air entry, no wheezes or rhonchi anteriorly, mildly diminished at bases) Cardiovascular: Regular rate/rhythm, Diastolic murmur Gastrointestinal: Soft and benign, Non-distended, Other (PEG tube present) Musculoskeletal: No swelling, Other (Muscle mass loss) Integumentary: Other (Did not examine for decubitus) Neurological: Sleeping so did not awaken Laboratory Data (last 24 hrs) Reviewed Conclusions/Impression: A/P) 1. Stage III ARF per JEFFREY definition with presenting Cr level > 4 mg/dl last week on underlying CKD NOS, but suspected advanced given prior/recent labs, pt with other prior KATLYN episodes. Cr level has downward trended nicely from admission levels to presumed baseline levels seen in past months, cont to monitor. 2. Renal imaging did not show obstructive uropathy, pt with chronic ortega it ap pears. 3. Hyperkalemia last week in the setting of renal failure, insulin deficiency and acidosis since resolved. Maintain off ACEi or ARB therapy. 4. AG metab acidosis on admission resolved. 5. D/chiqui IVF earlier in the week. CXR read more as PNA than pulm edema/fluid but may use Lasix PRN 6. Monitor BP, currently acceptable, avoid relative hypotension 7. Did place on maintenance free water boluses. Na level ok Amrit Howard MD, EMMA
[2022-12-23] MEDS: Meropenem 1,000 MG in NA CHLORIDE 0.9% 100 ML IV SCH (12:15)
[2022-12-23] MEDS: FLUCONAZOLE 200mg IVPB 200 MG/100 ML BAG IV SCH (17:11)
[2022-12-23] MEDS: TAMSULOSIN 0.4 MG SR CAP PO SCH (21:39)
--- NOTE | 2022-12-23 22:14 | PN ---
Subjective: The patient is lying in bed, not in acute event. Chart reviewed. Objective: Vital Signs: Temperature 98, pulse 78, respirations 16, and blood pressure 126/65. Lungs: Basal crackles. Heart: S1, S2 regular. Abdomen: Soft, nontender. Bowel sounds present. Extremities: Trace edema. Laboratory Data: WBC 12.8, hemoglobin 8.2, and platelets 436. BUN of 48, creatinine 2.55. Procalci tonin 0.6. Medications: The patient is currently on Diflucan and Zosyn. Assessment And Plan: Right lower lobe pneumonitis, urinary tract infection, sepsis, leukocytosis, an emia of chronic disease. Continue current treatment. No other recommendation at this time. We will follow the patient as needed. NF/MODL Voice ID: [id number] Report ID: [id number]
[2022-12-24] MEDS: Meropenem 1,000 MG in NA CHLORIDE 0.9% 100 ML IV SCH ×3 (00:13→23:26)
[2022-12-24] MEDS: FERROUS SULFATE PO SCH ×2 (00:22→12:03)
[2022-12-24] MEDS: HOME MED 1 EA UNK (Ipratropium/Albuterol Sulfate [Iprat-Albut 0.5-3(2.5) Mg/3 Ml] 3 ML Amp IH SCH ×4 (00:23→19:15)
[2022-12-24 02:58] LABS: Absolute Lymphocytes (CBC) 3.5 K/uL (0.7-4.9); Lymphocytes % 25.4 % (15.3-44.8); MCV 79.8 fL (80-100); MPV 7.3 fL (7.6-11.3); RBC Red Blood Cell Count 3.38 M/uL (4.33-5.43)
[2022-12-24 03:19] LABS: C-Reactive Protein 44.2 mg/L (<3.00); Potassium 3.7 mEq/L (3.5-5.1)
[2022-12-24] MEDS: D10W 125 ML IV PRN (03:26)
[2022-12-24] MEDS ORDERED: POTASSIUM 25 MEQ EFFERV TAB PO ONE (03:34)
[2022-12-24] MEDS: LEVOTHYROXINE SOD 0.025 MG TAB PO SCH (05:26)
--- NOTE | 2022-12-24 06:57 | P.PN ---
Date of Service: 12/24/22 Subjective: feels breathing remains about the same oxygen requirement remains labile, back and forth between ~8L and 12L no new / worsening problems per patient afebrile ROS: 10 point ROS as noted above, otherwise negative Physical Exam: GEN: Alert, NAD HEENT: Normal conjunctiva, sclera anicteric, trach in place CV: Regular rate and rhythm, no edema Pulm: Nonlabored respirations on trach collar -8L, faint R base crackles ABD: Soft, nontender, nondistended, G-tube in place : ortega in place Neuro: normal affect, responds appropriately, nonverbal but communicates Ortega in place GT in place vitals reviewed Problem List: DKA, resolved UTI, yeast Aspiration pneumonitis / pneumonia KATLYN on CKD IV Metabolic acidosis, resolved Hyperkalemia Chronic respiratory failure with hypoxia/tracheostomy DKA, resolved Anion gap closed. resolved Continue GT feeding. glucose low (12/20) morning; decreased long acting insulin (12/20) increased (12/22) sliding scale insulin Leukocytosis/UTI recent hospitalization for aspiration pneumonia Zosyn switched to IV cefepime and vancomycin ID consulted - dc'd antibiotics (12/21) Urine culture: shows yeast, non-gavino Blood cultures: NGTD Continue with Diflucan x14 days total Aspiration pneumonitis / pneumonia (12/22), reported to me that he had emesis (12/21) AM CXR (12/22): increased R lower lobe opacity, possible aspiration pneumonitis CXR tomorrow started zosyn (12/22) Zosyn switched to merrem (12/23) given prior ESBL history continue merrem KATLYN on CKDIV /metabolic acidosis/hyperkalemia Nephrology consulted Renal function improved / stable Metabolic acidosis and hyperkalemia resolved continue GT feeding, free water flushes off IVF Chronic respiratory failure with hypoxia/tracheostomy wean O2 VTE: Heparin, SQ Code: Full Dispo: NH in a few days need to monitor with recent aspiration, restarting antibiotics need further improvement of O2 supplementation
[2022-12-24] MEDS: INSULIN -REGULAR HUMAN 50 UNIT/0.5 ML ML SQ SCH ×4 (07:30→20:26)
[2022-12-24] MEDS: LACTOBACILLUS RHAMNOSUS GG PO SCH ×2 (09:00→20:47)
[2022-12-24] MEDS: INSULIN GLARGINE 100 UNIT/ML SQ SCH ×2 (10:02→20:48)
[2022-12-24] MEDS: Pantoprazole (granules) 40 MG/BLIST PACKET FT SCH (10:03)
[2022-12-24] MEDS: ESCITALOPRAM 20 MG TAB PO SCH (10:03)
[2022-12-24] MEDS: carvediloL 25 MG TAB FT SCH ×2 (10:03→20:45)
[2022-12-24] MEDS: HYDRALAZINE HCL 25 MG TABLET PO SCH ×3 (10:03→20:45)
[2022-12-24] MEDS: AMLODIPINE 5 MG TAB PO SCH (10:03)
[2022-12-24] MEDS: NEPRO 1,000 ML BOT FT SCH ×4 (10:04→20:47)
[2022-12-24] MEDS: HEPARIN 5000 UNIT/ML 1 ML VIAL SQ SCH ×2 (10:23→20:45)
--- NOTE | 2022-12-24 16:19 | P.PN ---
Date of Service: 12/24/22 Vital Signs Temp Pulse Resp BP Pulse Ox 97.9 F 73 16 119/65 92 12/24/22 12:00 12/24/22 12:00 12/24/22 12:00 12/24/22 12:00 12/24/22 12:00 Medications Albuterol Sulfate (Albuterol 2.5 Mg/3 Ml Neb Radha) 2.5 mg NEB [id number] PRN PRN Reason: SHORTNESS OF BREATH Amlodipine Besylate (Amlodipine 5 Mg Tab) 5 mg PO DAILY [facility] Last Admin: 12/24/22 10:03 Dose: 5 mg Carvedilol (Carvedilol 25 Mg Tab) 25 mg FT BID [facility] Last Admin: 12/24/22 10:03 Dose: 25 mg Enteral Nutritional Formula (Nepro 1,000 Ml Bot) 240 ml FT QID [facility] Last Admin: 12/24/22 14:11 Dose: 240 ml Escitalopram Oxalate (Escitalopram 20 Mg Tab) 10 mg PO DAILY [facility] Last Admin: 12/24/22 10:03 Dose: 10 mg Glucagon (Glucagon 1 Mg/Vial) 1 mg IM 1X PRN; Protocol PRN Reason: HYPOGLYCEMIA Heparin Sodium (Porcine) (Heparin 5000 Unit/Ml 1 Ml Vial) 5,000 unit SQ Q12HR [facility] Last Admin: 12/24/22 10:23 Dose: 5,000 unit Home Med (Lactobacillus Rhamnosus Gg [Culturelle]) 1 cap PO BID [facility] Last Admin: 12/24/22 09:00 Dose: Not Given Home Med (Ipratropium/Albuterol Sulfate [Iprat-Albut 0.5-3(2.5) Mg/3 Ml]) 3 ml IH Q6H [facility] Last Admin: 12/24/22 12:03 Dose: Not Given Home Med (Ferrous Sulfate [Ferrous Sulfate]) 5 ml PO Q12H [facility] Last Admin: 12/24/22 12:03 Dose: Not Given Hydralazine HCl (Hydralazine Hcl 25 Mg Tablet) 50 mg PO TID [facility] Last Admin: 12/24/22 14:11 Dose: 50 mg Dextrose (Dextrose 10% Water Iv Soln.) 125 mls @ 0 mls/hr IV PRN PRN; Protocol PRN Reason: HYPOGLYCEMIA Last Admin: 12/24/22 03:26 Dose: 250 mls Fluconazole (Diflucan 200 Mg/100 Ml Ivpb (Premix)) 200 mg in 100 mls @ 100 mls/hr IV 1700 [facility]; Protocol Stop: 12/29/22 17:59 Last Admin: 12/23/22 17:11 Dose: 100 mls Meropenem 1,000 mg/ Sodium (Chloride) 100 mls @ 200 mls/hr IV Q12H [facility] Last Admin: 12/24/22 12:03 Dose: 100 mls Insulin Glargine (Insulin Glargine 100 Unit/Ml) 20 unit SQ Q12HR [facility] Last Admin: 12/24/22 10:02 Dose: 20 unit Insulin Human Regular (Insulin -Regular Human 50 Unit/0.5 Ml Ml) 0 unit SQ ACHS [facility]; Protocol Last Admin: 12/24/22 12:02 Dose: 3 unit Levothyroxine Sodium (Levothyroxine Sod 0.025 Mg Tab) 0.025 mg PO DAILYAC [facility] Last Admin: 12/24/22 05:26 Dose: 0.025 mg Ondansetron HCl (Ondansetron 4 Mg/2 Ml Vial) 4 mg IV Q6HP PRN PRN Reason: NAUSEA / VOMITING Pantoprazole Sodium (Pantoprazole (Granules) 40 Mg/Blist Packet) 40 mg FT DAILY [facility] Last Admin: 12/24/22 10:03 Dose: 40 mg Sodium Chloride (Flush Normal Saline 10 Ml) 10 ml IV BID [facility] Last Admin: 12/24/22 09:00 Dose: 10 ml Tamsulosin HCl (Tamsulosin 0.4 Mg Sr Cap) 0.4 mg PO BEDTIME [facility] Last Admin: 12/23/22 21:39 Dose: 0.4 mg Microbiology Results 12/16/22 04:45 Clean Catch Urine [place] Count - Final >100,000 CFU/ML. 12/16/22 04:45 Clean Catch Urine - Final Assessment/ Plan: Nephrology No dyspnea No chest pain No acute events overnight Limited IH/ ROS due to mental status Vitals, medications, blood work and imaging reviewed in the chart. NAD. NCAT. MMM. Neck supple/ Trach. Normal respiratory effort. RRR. Abd ND. No C/C. LE Edema none. No rash. Awake. No speech. Left BKA. Stage III KATLYN in the setting of hypovolemia CKD III/ IV -No NSAIDs Hypokalemia -Replete potassium prn HTN with CKD -Continue Coreg -Continue Amlodipine DM II with CKD -Continue Lantus -RISS Anemia in chronic illness -Retacrit prn -Continue iron Aspiration PNA -Continue Abx Case reviewed in with Dr. Blair
[2022-12-24] MEDS: FLUCONAZOLE 200mg IVPB 200 MG/100 ML BAG IV SCH (17:10)
[2022-12-24] MEDS: TAMSULOSIN 0.4 MG SR CAP PO SCH (20:46)
[2022-12-25] MEDS: HOME MED 1 EA UNK (Ipratropium/Albuterol Sulfate [Iprat-Albut 0.5-3(2.5) Mg/3 Ml] 3 ML Amp IH SCH ×4 (01:15→19:15)
[2022-12-25] MEDS: FERROUS SULFATE PO SCH ×2 (01:15→12:39)
[2022-12-25 03:11] LABS: Absolute Lymphocytes (CBC) 3.9 K/uL (0.7-4.9); Hematocrit 26.1 % (39.6-49.0); Lymphocytes % 28.3 % (15.3-44.8); MCV 80.4 fL (80-100); MPV 7.5 fL (7.6-11.3); RBC Red Blood Cell Count 3.25 M/uL (4.33-5.43)
[2022-12-25 03:34] LABS: C-Reactive Protein 26.9 mg/L (<3.00); Magnesium 2.2 mg/dL (1.6-2.4); Potassium 4.1 mEq/L (3.5-5.1)
[2022-12-25] MEDS: LEVOTHYROXINE SOD 0.025 MG TAB PO SCH (06:04)
[2022-12-25] MEDS: D10W 125 ML IV PRN (06:12)
--- NOTE | 2022-12-25 06:50 | RAD REPORT ---
EXAM DESCRIPTION: RAD - Chest Single View - 12/25/2022 4:42 am CLINICAL HISTORY: f/u r opacity COMPARISON: Chest Single View dated 12/22/2022; Chest Single View dated 12/16/2022; Chest Single View dated 11/29/2022; Abdomen 1 View (KUB) dated 10/31/2022; Abdomen Pelvis Wo Contrast dated 11/29/2022; Deedee st Abd Pelvis Wo Con dated 10/21/2022 FINDINGS: Lines: Tracheostomy. Lungs: Airspace disease in lung bases is similar to 12/22/2022. Pleural: No significant pleural effusions or pneumothorax. Cardiac: The heart size is within normal limits. Mediastinum: Within normal limits. Bones: No acute fractures. Other: None IMPRESSION: Basilar airspace disease, right greater than left, similar to 12/22/2022.
--- NOTE | 2022-12-25 06:58 | P.PN ---
Date of Service: 12/25/22 Subjective: shakes head no, when asked if any new or worse problems on 11L via trach collar feels ok this morning, nods yes when asked about the same as yesterday afebrile ROS: 10 point ROS as noted above, otherwise negative Physical Exam: GEN: Alert, NAD HEENT: Normal conjunctiva, sclera anicteric, trach in place CV: Regular rate and rhythm, no edema Pulm: Nonlabored respirations on trach collar -11L, transmitted upper airway noises ABD: Soft, nontender, nondistended, G-tube in place : ortega in place Neuro: normal affect, responds appropriately, nonverbal but communicates Ortega in place GT in place vitals reviewed Problem List: DKA, resolved UTI, yeast Aspiration pneumonitis / pneumonia KATLYN on CKD IV Metabolic acidosis, resolved Hyperkalemia Chronic respiratory failure with hypoxia/tracheostomy DKA, resolved Anion gap closed. resolved Continue GT feeding. glucose low (12/20) morning; decreased long acting insulin (12/20) increased (12/22) glucose low again (12/24) afternoon; adjusted long acting insulin (12/24) sliding scale insulin Leukocytosis/UTI recent hospitalization for aspiration pneumonia Zosyn switched to IV cefepime and vancomycin ID consulted - dc'd antibiotics (12/21) Urine culture: shows yeast, non-gavino Blood cultures: NGTD Continue with Diflucan x14 days total Aspiration pneumonitis / pneumonia (12/22), reported to me that he had emesis (12/21) AM CXR (12/22): increased R lower lobe opacity, possible aspiration pneumonitis CXR (12/25): Basilar airspace disease, right greater than left, similar to 0 12/22/2022 started zosyn (12/22) Zosyn switched to merrem (12/23) given prior ESBL history continue merrem ID following KATLYN on CKDIV /metabolic acidosis/hyperkalemia Nephrology consulted Renal function improved / stable Metabolic acidosis and hyperkalemia resolved continue GT feeding, free water flushes Chronic respiratory failure with hypoxia/tracheostomy wean O2 VTE: Heparin, SQ Code: Full Dispo: NH in a few days monitor with recent aspiration need further improvement of O2 supplementation
[2022-12-25] MEDS: LACTOBACILLUS RHAMNOSUS GG PO SCH ×2 (09:00→20:48)
[2022-12-25] MEDS: HYDRALAZINE HCL 25 MG TABLET PO SCH ×3 (09:23→20:46)
[2022-12-25] MEDS: ESCITALOPRAM 20 MG TAB PO SCH (09:23)
[2022-12-25] MEDS: carvediloL 25 MG TAB FT SCH ×2 (09:23→20:46)
[2022-12-25] MEDS: AMLODIPINE 5 MG TAB PO SCH (09:24)
[2022-12-25] MEDS: Pantoprazole (granules) 40 MG/BLIST PACKET FT SCH (09:24)
[2022-12-25] MEDS: NEPRO 1,000 ML BOT FT SCH ×4 (09:24→20:48)
[2022-12-25] MEDS: INSULIN GLARGINE 100 UNIT/ML SQ SCH ×2 (09:24→20:49)
[2022-12-25] MEDS: HEPARIN 5000 UNIT/ML 1 ML VIAL SQ SCH ×2 (10:01→20:47)
[2022-12-25] MEDS: INSULIN -REGULAR HUMAN 50 UNIT/0.5 ML ML SQ SCH ×2 (12:24→17:28)
[2022-12-25] MEDS: Meropenem 1,000 MG in NA CHLORIDE 0.9% 100 ML IV SCH ×2 (12:24→23:24)
[2022-12-25] MEDS: TAMSULOSIN 0.4 MG SR CAP PO SCH (20:46)
[2022-12-26] MEDS: HOME MED 1 EA UNK (Ipratropium/Albuterol Sulfate [Iprat-Albut 0.5-3(2.5) Mg/3 Ml] 3 ML Amp IH SCH ×3 (01:15→10:44)
[2022-12-26] MEDS: FERROUS SULFATE PO SCH ×2 (01:15→10:44)
[2022-12-26] MEDS: INSULIN -REGULAR HUMAN 50 UNIT/0.5 ML ML SQ SCH ×4 (01:46→17:14)
[2022-12-26 04:13] LABS: Hematocrit 29.4 % (39.6-49.0); MCV 80.9 fL (80-100); MPV 7.9 fL (7.6-11.3); RBC Red Blood Cell Count 3.63 M/uL (4.33-5.43)
[2022-12-26 04:55] LABS: Albumin 1.7 g/dL (3.4-5.0); Phosphorus 3.3 mg/dL (2.5-4.9)
[2022-12-26 05:03] LABS: Magnesium 2.2 mg/dL (1.6-2.4); Potassium 4.3 mEq/L (3.5-5.1)
[2022-12-26] MEDS: LEVOTHYROXINE SOD 0.025 MG TAB PO SCH (06:42)
--- NOTE | 2022-12-26 06:49 | P.PN ---
Date of Service: 12/26/22 Subjective: feels ok, denies any new/worsening symptoms down to 8L via trach collar afebrile ROS: 10 point ROS as noted above, otherwise negative Physical Exam: GEN: Alert, NAD HEENT: Normal conjunctiva, sclera anicteric, trach in place CV: Regular rate and rhythm, no edema Pulm: Nonlabored respirations on trach collar -8L, transmitted upper airway noises, secretions suctioned out, whitish-green ABD: Soft, nontender, nondistended, G-tube in place : ortega in place Neuro: normal affect, responds appropriately, nonverbal but communicates Ortega in place GT in place vitals reviewed Problem List: DKA, resolved UTI, yeast Aspiration pneumonitis / pneumonia KATLYN on CKD IV Metabolic acidosis, resolved Hyperkalemia Chronic respiratory failure with hypoxia/tracheostomy DKA, resolved adjusting insulin q48hrs sliding scale insulin Leukocytosis/UTI recent hospitalization for aspiration pneumonia initially treated with Zosyn switched to IV cefepime and vancomycin ID consulted - dc'd antibiotics (12/21) to monitor how he did 12/21, AM pt had emesis/aspiration event, but nobody was notified; patient informed me on 12/22 Urine culture: shows yeast, non-gavino Diflucan completed 1 week on 12/24 Blood cultures: no growth final Aspiration pneumonitis / pneumonia (12/22), reported to me that he had emesis (12/21) AM CXR (12/22): increased R lower lobe opacity, possible aspiration pneumonitis CXR (12/25): Basilar airspace disease, right greater than left, similar to 12/22/2022 started zosyn (12/22) Zosyn switched to merrem (12/23) given prior ESBL history continue merrem ID following KATLYN on CKDIV /metabolic acidosis/hyperkalemia Nephrology consulted Renal function improved / stable Metabolic acidosis and hyperkalemia resolved continue GT feeding, free water flushes Chronic respiratory failure with hypoxia/tracheostomy wean O2 VTE: Heparin, SQ Code: Full Dispo: NH in a few days monitor with recent aspiration1 need further improvement of O2 supplementation final recs on abx, will discuss with ID
[2022-12-26] MEDS: LACTOBACILLUS RHAMNOSUS GG PO SCH ×2 (09:00→21:00)
[2022-12-26] MEDS: INSULIN GLARGINE 100 UNIT/ML SQ SCH ×2 (09:00→21:19)
--- NOTE | 2022-12-26 09:30 | P.PN ---
Date of Service: 12/26/22 Chief Complaint: Hyperkalemia, Renal Failure Subjective: No new changes. Denies any new complaints. No acute events reported overnight. Pt in bed, NAD, A&Ox3 Physical Examination Temp Pulse Resp BP Pulse Ox 97.5 F 77 18 124/63 96 12/26/22 04:00 12/26/22 04:00 12/26/22 04:00 12/26/22 04:00 12/26/22 04:00 General: In no apparent distress HEENT: Atraumatic, Normocephalic Neck: JVD not distended, Tracheostomy noted Respiratory: Diminished, tracheostomy on trach collar 5L Cardiovascular: No edema, Normal pulses Gastrointestinal: Normal bowel sounds, Soft and benign, Non-distended, G-tube Musculoskeletal: No clubbing, No swelling, Left BKA. Integumentary: Sacral pressure injury stage 2 Urinary: Simmons catheter draining yellow urine Studies Laboratory Data - Reviewed Microbiology Data - Blood cultures 12/16: No growth to date - Urine culture 12/16: 3+ yeast not gavino albicans; colony count >100,000 CFU/mL Imagings Data: - Reviewed Medications List Reviewed: Yes Assessment and Plan Problem List CHF Hx CVA Hypertension Hyperlipidemia Chronic Respiratory Failure Tracheostomy Dependent CKD stage 4 DKA, resolved Diabetes Mellitus Type 1 Anemia Urinary Tract Infection Severe PCM * Allergy: Sulfa * Sepsis Urinary Tract Infection - Chronic urinary catheter - Urine culture 12/16: 3+ yeast not gavino albicans; colony count >100,000 CFU/mL - Previously on Fluconazole (12/19-12/24) Aspiration Pneumonitis - XR Chest 12/16 with no acute findings - Reported episode of emesis on 12/21. XR Chest obtained 12/22 showing "Mild worsening in right and no significant change in left basilar opacities which could indicate aspiration pneumonitis." - Patient was started on Zosyn 12/22 which was switched to Meropenem 12/23 due to history of ESBL. Afebrile Leukocytosis improving (13.9 -> 11.5 - on 12/26) Recommendations - Aspiration pneumonitis: Continue Meropenem x 5-7 days (started 12/23) - Monitor WBC and fever trends - Barrier cream to buttocks/sacrum and turn patient Q2H - Continue supportive care and nutritional support. Aspiration precautions. ID will follow patient as needed Case discussed with Flavio Merrill
[2022-12-26] MEDS: carvediloL 25 MG TAB FT SCH ×2 (09:32→21:16)
[2022-12-26] MEDS: HYDRALAZINE HCL 25 MG TABLET PO SCH ×3 (09:32→21:16)
[2022-12-26] MEDS: HEPARIN 5000 UNIT/ML 1 ML VIAL SQ SCH ×2 (09:32→21:19)
[2022-12-26] MEDS: Pantoprazole (granules) 40 MG/BLIST PACKET FT SCH (09:32)
[2022-12-26] MEDS: AMLODIPINE 5 MG TAB PO SCH (09:32)
[2022-12-26] MEDS: NEPRO 1,000 ML BOT FT SCH ×4 (09:33→21:18)
[2022-12-26] MEDS: ESCITALOPRAM 20 MG TAB PO SCH (09:33)
[2022-12-26] MEDS: Meropenem 1,000 MG in NA CHLORIDE 0.9% 100 ML IV SCH (11:25)
[2022-12-26] MEDS: TAMSULOSIN 0.4 MG SR CAP PO SCH (21:16)
[2022-12-27] MEDS: Meropenem 1,000 MG in NA CHLORIDE 0.9% 100 ML IV SCH ×2 (00:14→11:58)
[2022-12-27] MEDS: INSULIN -REGULAR HUMAN 50 UNIT/0.5 ML ML SQ SCH ×4 (00:29→18:00)
[2022-12-27] MEDS: FERROUS SULFATE PO SCH ×2 (01:15→11:27)
[2022-12-27 04:35] LABS: Absolute Lymphocytes (CBC) 2.9 K/uL (0.7-4.9); Hematocrit 29.2 % (39.6-49.0); Lymphocytes % 24.7 % (15.3-44.8); MCV 80.7 fL (80-100); MPV 8.1 fL (7.6-11.3); RBC Red Blood Cell Count 3.62 M/uL (4.33-5.43)
[2022-12-27 04:51] LABS: Magnesium 2.3 mg/dL (1.6-2.4); Potassium 4.1 mEq/L (3.5-5.1)
[2022-12-27] MEDS: LEVOTHYROXINE SOD 0.025 MG TAB PO SCH (06:24)
[2022-12-27] MEDS: HOME MED 1 EA UNK (Ipratropium/Albuterol Sulfate [Iprat-Albut 0.5-3(2.5) Mg/3 Ml] 3 ML Amp IH SCH ×2 (07:15→11:28)
[2022-12-27] MEDS: LACTOBACILLUS RHAMNOSUS GG PO SCH (09:00)
[2022-12-27] MEDS: INSULIN GLARGINE 100 UNIT/ML SQ SCH (09:01)
[2022-12-27] MEDS: ESCITALOPRAM 20 MG TAB PO SCH (09:02)
[2022-12-27] MEDS: carvediloL 25 MG TAB FT SCH (09:02)
[2022-12-27] MEDS: Pantoprazole (granules) 40 MG/BLIST PACKET FT SCH (09:02)
[2022-12-27] MEDS: AMLODIPINE 5 MG TAB PO SCH (09:02)
[2022-12-27] MEDS: HYDRALAZINE HCL 25 MG TABLET PO SCH ×2 (09:02→12:34)
[2022-12-27] MEDS: NEPRO 1,000 ML BOT FT SCH ×3 (09:03→16:51)
[2022-12-27] MEDS: HEPARIN 5000 UNIT/ML 1 ML VIAL SQ SCH (09:03)
--- NOTE | 2022-12-27 09:36 | P.PN ---
Date of Service: 12/27/22 Chief Complaint: Hyperkalemia, Renal Failure Subjective: No new changes. Improving. Patient is in bed, NAD, A&Ox3 Continue current plan of care. Physical Examination Temp Pulse Resp BP Pulse Ox 98.1 F 77 16 105/53 L 95 12/27/22 04:00 12/27/22 09:02 12/27/22 04:00 12/27/22 09:02 12/27/22 04:00 General: In no apparent distress HEENT: Atraumatic, Normocephalic Neck: JVD not distended, Tracheostomy noted Respiratory: Diminished, tracheostomy on trach collar 5L Cardiovascular: No edema, Normal pulses Gastrointestinal: Normal bowel sounds, Soft and benign, Non-distended, G-tube Musculoskeletal: No clubbing, No swelling, Left BKA. Integumentary: Sacral pressure injury stage 2 Urinary: Simmons catheter draining yellow urine Studies Laboratory Data - Reviewed Microbiology Data - Blood cultures 12/16: No growth to date - Urine culture 12/16: 3+ yeast not gavino albicans; colony count >100,000 CFU/mL Imagings Data: - Reviewed Medications List Reviewed: Yes Assessment and Plan Problem List CHF Hx CVA Hypertension Hyperlipidemia Chronic Respiratory Failure Tracheostomy Dependent CKD stage 4 DKA, resolved Diabetes Mellitus Type 1 Anemia Urinary Tract Infection Severe PCM * Allergy: Sulfa * Sepsis Urinary Tract Infection - Chronic urinary catheter - Urine culture 12/16: 3+ yeast not gavino albicans; colony count >100,000 CFU/mL - On Fluconazole from 12/19 to 12/24 Aspiration Pneumonitis - XR Chest 12/16 with no acute findings - Reported episode of emesis on 12/21. XR Chest obtained 12/22 showing "Mild worsening in right and no significant change in left basilar opacities which could indicate aspiration pneumonitis." - Patient was started on Zosyn 12/22 which was switched to Meropenem 12/23 due to history of ESBL. - XR Chest 12/27: "Mild improvement in the bibasilar lung opacities" Afebrile. Leukocytosis WBC 11.7 Recommendations - Aspiration pneumonitis: Continue Meropenem x 5-7 days (started 12/23) - Monitor WBC and fever trends - Barrier cream to buttocks/sacrum and turn patient Q2H - Continue supportive care and nutritional support. Aspiration precautions. ID will follow patient as needed Case discussed with Flavio Merrill
[2022-12-27 12:33] VITALS: BP 100/46; TEMP 97
--- NOTE | 2022-12-27 12:38 | RAD REPORT ---
EXAM DESCRIPTION: Cesar Single View12/27/2022 12:20 pm CLINICAL HISTORY: Cough COMPARISON: December 25, 2022 FINDINGS: Mild improvement in the bibasilar lung opacities. Upper lobes are clear. Heart is normal s ize Tracheostomy tube in place IMPRESSION: Mild improvement in the bibasilar lung opacities
--- NOTE | 2022-12-27 13:30 | P.DS ---
Admission Date: 12/16/22 Discharge Date: 12/27/22 Primary Care Provider: Chuy Hayes Disposition: TRANSFER TO [facility] Discharge Condition: FAIR Reason for Admission: Hyperkalemia, Renal Failure Brief History of Present Illness: Mr. Carrillo is a 57-year-old nonverbal male with history of hypertension, COPD, GERD, chronic combined CHF, history of CVA, hyperlipidemia, indwelling Simmons catheter, chronic respiratory failure tracheostomy dependent, presence of gastrostomy tube, chronic kidney disease stage IV, type 1 diabetes, and physical debility who presented to the emergency department via EMS from intermediate with hyperkalemia. He had routine labs done which revealed a potassium of 6.9. He was discharged from the medical center 2 days ago after treatment of septic shock secondary to aspiration pneumonia. Patient had no complaints. Labs significant for WBC 17.6 with left shift and bandemia, hemoglobin 8.7, hematocrit 27.7, sodium 129, potassium 6.4, CO2 18, BUN 85, creatinine 4.1, glucose 418. EKG without acute changes, mildly peaked t waves. Urine pending. Chest xray negative for acute findings. Vital signs stable. He was given hyperkalemia reversal agents as well as zosyn in the emergency department. Patient was admitted for further management of hyperkalemia, acute on chronic renal failure. Hospital Course: Diagnosis DKA, resolved UTI, yeast Aspiration pneumonitis / pneumonia KATLYN on CKD IV Metabolic acidosis, resolved Hyperkalemia Chronic respiratory failure with hypoxia/tracheostomy DKA. Patient diagnosed with DKA given metabolic acidosis and elevated blood sugar reading. Blood also positive for acetone. Patient was monitored in the ICU with insulin drip and IV fluid. DKA resolved and patient transition to sliding scale insulin and Lantus insulin Noted intermittent hypoglycemia. Lantus insulin adjusted to 15 and twice daily compared to his home dose of 30 units twice daily. Leukocytosis/UTI recent hospitalization for aspiration pneumonia initially treated with Zosyn and then switched to IV cefepime and vancomycin ID consulted - dc'd antibiotics (12/21) to monitor how he did 12/21, AM pt had emesis/aspiration event, but nobody was notified; patient informed me on 12/22 Urine culture: shows yeast, non-gavino Diflucan completed 1 week on 12/24 Blood cultures: no growth final. Repeat chest x-ray today showed improvement in bibasilar infiltrates. Aspiration pneumonitis / pneumonia (12/22), reported to me that he had emesis (12/21) AM CXR (12/22): increased R lower lobe opacity, possible aspiration pneumonitis CXR (12/25): Basilar airspace disease, right greater than left, similar to 12/22/2022 started zosyn (12/22) Zosyn switched to merrem (12/23) given prior ESBL history Patient overall treated with multiple antibiotic ID saw and follow-up patient's clinical course. Repeat chest x-ray today shows improvement in basilar infiltrates. Patient completed at least 10 days of antibiotics. KATLYN on CKDIV /metabolic acidosis/hyperkalemia Nephrology consulted Renal function improved and stabilized. Metabolic acidosis and hyperkalemia resolved GT feeding, free water flushes Chronic respiratory failure with hypoxia/tracheostomy Patient tolerated his baseline oxygen. Vital Signs/Physical Exam: Temp Pulse Resp BP Pulse Ox 97.0 F 73 18 100/46 L 98 12/27/22 12:00 12/27/22 12:00 12/27/22 12:00 12/27/22 12:12/27/22 12:00 General: Alert, In no apparent distress, Oriented x3 HEENT: Mucous membr. moist/pink Neck: JVD not distended Respiratory: Other (Bilateral upper airway transmitted sounds.) Cardiovascular: No edema, Regular rate/rhythm, Normal S1 S2 Gastrointestinal: Soft and benign, Non-distended Musculoskeletal: No swelling Integumentary: No cyanosis Neurological: Normal strength at 5/5 x4 extr Laboratory Data at Discharge: WBC 11.70 thou/uL (4.3-10.9) H 12/27/22 03:04 Hgb 9.5 g/dL (13.6-17.9) L 12/27/22 03:04 Hct 29.2 % (39.6-49.0) L 12/27/22 03:04 Plt Count 438 thou/uL (152-406) H 12/27/22 03:04 Sodium 135 mEq/L (136-145) L 12/27/22 03:04 Potassium 4.1 mEq/L (3.5-5.1) 12/27/22 03:04 BUN 57 mg/dL (7-18) H 12/27/22 03:04 Creatinine 2.94 mg/dL (0.70-1.30) H 12/27/22 03:04 Glucose 182 mg/dL (74-106) H 12/27/22 03:04 Phosphorus 3.3 mg/dL (2.5-4.9) 12/26/22 03:08 Magnesium 2.3 mg/dL (1.6-2.4) 12/27/22 03:04 Total Bilirubin 0.5 mg/dL (0.2-1.0) 12/17/22 04:55 AST 44 U/L (15-37) H 12/17/22 04:55 ALT 18 U/L (16-61) 12/17/22 04:55 Alkaline Phosphatase 96 U/L (45-117) 12/17/22 04:55 Triglycerides 92 mg/dL (<150) 12/17/22 04:55 Cholesterol 106 mg/dL (<200) 12/17/22 04:55 HDL Cholesterol 28 mg/dL (40-60) L 12/17/22 04:55 Cholesterol/HDL Ratio 3.79 12/17/22 04:55 Home Medications: Acetaminophen 2 tab .ROUTE Q4H PRN 10/22/22 Amlodipine [Norvasc*] 1 tab .ROUTE DAILY 10/22/22 Atorvastatin Calcium [Lipitor*] 1 tab .ROUTE BEDTIME 10/22/22 Budesonide [Pulmicort*] 2 ml .ROUTE Q12H 10/22/22 Carvedilol [Coreg] 1 tab .ROUTE BID 10/22/22 Ferrous Sulfate 5 ml .ROUTE Q12H 10/22/22 Lactulose [Enulose] 30 ml .ROUTE Q6H PRN 10/22/22 Levothyroxine Sodium 1 tab .ROUTE DAILY 10/22/22 Omeprazole 1 cap .ROUTE DAILY 10/22/22 Ondansetron [Zofran (Odt)*] 1 tab PO Q6H PRN 10/22/22 Tamsulosin HCl [Flomax] 1 cap .ROUTE BEDTIME 10/22/22 Nepro 240 ml FT QID bot 10/24/22 Aspirin [Aspirin EC 81 MG] 81 mg .ROUTE DAILY 12/16/22 Escitalopram Oxalate [Lexapro] 1 tab .ROUTE DAILY 12/16/22 Hydralazine HCl 1 tab .ROUTE TID 12/16/22 Ipratropium/Albuterol Sulfate [Iprat-Albut 0.5-3(2.5) mg/3 ml] 3 ml .ROUTE Q6H 12/16/22 Lactobacillus Rhamnosus GG [Culturelle] 1 cap .ROUTE BID 12/16/22 Zinc Oxide [Zinc Oxide 20%*] 1 appl TOP Q12H PRN 12/16/22 Insulin -Regular Human [Novolin -R*] See Protocol SQ Q6HR ml 12/27/22 Insulin Glargine,Hum.rec.anlog [Semglee] 15 unit SQ Q12HR ml 12/27/22 Diet: Nepro Activity: Fall precautions Time spent managing pt's care (in minutes): 38
[2022-12-27 18:35] VITALS: O2SAT 98
== END 2022-12-27 18:30 | DRG 682 ==
LOC: ER 02:36 → 2ND 04:59 → 3RD-ICU 13:36 → 2ND 12-19 22:39
PROVIDERS: ADMIT Internal Medicine; ATTEND Internal Medicine
DX: N17.9 Acute kidney failure, unspecified (principal); E10.10 Type 1 diabetes mellitus with ketoacidosis without coma; J69.0 Pneumonitis due to inhalation of food and vomit; T83.511A Infection and inflammatory reaction due to indwelling urethral catheter, initial encounter; I13.0 Hypertensive heart and chronic kidney disease with heart failure and stage 1 through stage 4 chronic kidney disease, or unspecified chronic kidney disease; I50.32 Chronic diastolic (congestive) heart failure; J96.11 Chronic respiratory failure with hypoxia; R64 Cachexia; N18.4 Chronic kidney disease, stage 4 (severe); E87.5 Hyperkalemia; E10.22 Type 1 diabetes mellitus with diabetic chronic kidney disease; E10.51 Type 1 diabetes mellitus with diabetic peripheral angiopathy without gangrene; D63.1 Anemia in chronic kidney disease; E87.6 Hypokalemia; E78.5 Hyperlipidemia, unspecified; K21.9 Gastro-esophageal reflux disease without esophagitis; L89.152 Pressure ulcer of sacral region, stage 2; J44.9 Chronic obstructive pulmonary disease, unspecified; Z88.1 Allergy status to other antibiotic agents; Z79.4 Long term (current) use of insulin; Z93.0 Tracheostomy status; Z93.1 Gastrostomy status; Z86.73 Personal history of transient ischemic attack (TIA), and cerebral infarction without residual deficits; Z90.49 Acquired absence of other specified parts of digestive tract; Z79.82 Long term (current) use of aspirin; Z79.899 Other long term (current) drug therapy; Z79.890 Hormone replacement therapy; Z89.512 Acquired absence of left leg below knee; Z89.421 Acquired absence of other right toe(s); Z87.891 Personal history of nicotine dependence
CPT/HCPCS: 36415; 71045; 80048; 80053; 80061; 80069; 80202; 81001; 82010; 82947; 83540; 83605; 83735; 84100; 84132; 84145; 84466; 84484; 85025; 85027; 86140; 87040; 87086; 87088; 87205; 87324; 93005; 94760; 99285; J0610; J0692; J1450; J1644; J1815; J2185; J2405; J2543; J2765; J3480; J7030; J7040; J7050; J7120; J7121; J7613; P9047; Q5106

== ENCOUNTER 2022-12-30 11:58 | Inpatient (IN) | payer BC ==
[2022-12-30] MEDS ORDERED: NA CHLORIDE 0.9% 1,000 ML ONE ×2 (12:41→15:30)
[2022-12-30 12:46] LABS: Absolute Lymphocytes (CBC) 2.5 K/uL (0.7-4.9); Hematocrit 28.5 % (39.6-49.0); Lymphocytes % 8.7 % (15.3-44.8); MCV 83.5 fL (80-100); MPV 7.9 fL (7.6-11.3); RBC Red Blood Cell Count 3.42 M/uL (4.33-5.43)
[2022-12-30 12:58] LABS: Specific Gravity 1.017 (1.005-1.030); Urine Bacteria None Seen /HPF (<20); Urine Bilirubin NEGATIVE (Negative); Urine Blood Trace (Negative); Urine Clarity Turbid (Clear); Urine Color Light-Yellow (Yellow); Urine Glucose 4+ (Over) (Negative); Urine Mucus Slight /HPF (None Seen); Urine Protein 2+ (Negative); Urine Urobilinogen Normal (Normal); Urine pH 5.5 (5.0-7.0)
[2022-12-30 12:59] LABS: Albumin 2.2 g/dL (3.4-5.0); Bilirubin Total 0.4 mg/dL (0.2-1.0); Potassium 4.5 mEq/L (3.5-5.1); Protein, Total 7.9 g/dL (6.4-8.2)
[2022-12-30 13:18] LABS: Blood Morphology Comment NOT SEEN (NOT SEEN); Platelet Estimate ADEQ; White Blood Cell Scan OK (OK)
--- NOTE | 2022-12-30 13:26 | RAD REPORT ---
EXAM DESCRIPTION: Cesar Single View12/30/2022 12:38 pm CLINICAL HISTORY: hyperglycemia/pneumonia COMPARISON: December 27, 2022 FINDINGS: No significant change in mild right basilar lung opacities probably pneumonia Upper lobes appear clear Heart is normal size. Tracheostomy tube in place
[2022-12-30 13:43] LABS: Troponin High Sensitivity 3116.3 pg/mL (<58.9)
--- NOTE | 2022-12-30 15:17 | EDPHYS ---
Physician Documentation [facility] Name: Douglas Carrillo Age: 57 yrs Sex: Male : 1965 Arrival Date: 12/30/2022 Time: 11:58 Bed 4 Private MD: ED Physician Warren Domingo HPI: 12/30 13:29 This 57 yrs old Male presents to ER via EMS with complaints of Hyperglycemia. rt 13:29 Patient presents to the ED with hyperglycemia from intermediate. The patient states rt that he feels little weak and that he has a dry mouth but otherwise has no acute symptoms states that he feels well otherwise. Denies other complaints, other aggravating alleviating factors, symptoms are moderate severity.. Historical: - Allergies: 12:15 Neostigmine Methylsulfate; mb9 12:15 Sulfa (Sulfonamide Antibiotics); mb9 - Home Meds: 12:15 amlodipine 10 mg tablet daily [Active]; aspirin 81 mg Oral capsule daily [Active]; mb9 carvedilol 25 mg Oral tablet 2 times per day [Active]; ferrous sulfate 300 mg (60 mg iron)/5 mL Oral tab daily [Active]; Flomax 0.4 mg Oral capsule every day at bedtime [Active]; Lexapro 10 mg Oral tablet daily [Active]; levothyroxine 25 mcg capsule daily [Active]; Lipitor 20 mg Oral tablet every day at bedtime [Active]; omeprazole 10 mg Oral capsule,delayed release (e.c.) daily [Active]; - PMHx: 12:15 CVA; Diabetes - IDDM; Hypertension; GERD; mb9 - Immunization history:: Adult Immunizations up to date. - Social history:: Smoking status: Patient reports the use of cigarette tobacco products. - Family history:: not pertinent. ROS: 13:29 Constitutional: Negative for fever, chills, and weight loss, Cardiovascular: Negative rt for chest pain, palpitations, and edema, Respiratory: Negative for shortness of breath, cough, wheezing, and pleuritic chest pain, Abdomen/GI: Negative for abdominal pain, nausea, vomiting, diarrhea, and constipation, Skin: Negative for injury, rash, and discoloration, Neuro: Negative for headache, weakness, numbness, tingling, and seizure, Psych: Negative for depression, anxiety, suicide ideation, homicidal ideation, and hallucinations. Exam: 13:29 Constitutional: This is a well developed, well nourished patient who is awake, alert, rt and in no acute distress. Head/Face: Normocephalic, atraumatic. Chest/axilla: Normal chest wall appearance and motion. Nontender with no deformity. No lesions are appreciated. Cardiovascular: Regular rate and rhythm with a normal S1 and S2. No gallops, murmurs, or rubs. Normal PMI, no JVD. No pulse deficits. Abdomen/GI: Soft, non-tender, with normal bowel sounds. No distension or tympany. No guarding or rebound. No evidence of tenderness throughout. Skin: Warm, dry with normal turgor. Normal color with no rashes, no lesions, and no evidence of cellulitis. Psych: Awake, alert, with orientation to person, place and time. Behavior, mood, and affect are within normal limits. 13:29 ECG was reviewed by the Attending Physician. 13:29 Respiratory: Trach collar in place, no respiratory distress. Vital Signs: 12:10 BP 131 / 77; Pulse 82; Resp 18; Temp 98.4; Pulse Ox 96% on via tracheostomy; Weight mb9 81.65 kg; Height 5 ft. 10 in. ; Pain 0/10; 13:12 BP 123 / 65; Pulse 84; Resp 22; Pulse Ox 97% on 5 lpm via tracheostomy; mb9 13:52 BP 129 / 68; Pulse 82; Resp 19; Pulse Ox 99% ; ld1 16:38 BP 117 / 52; Pulse 82; Resp 19; Pulse Ox 97% on 5 lpm via tracheostomy; mb9 12:10 Body Mass Index 25.83 (81.65 kg, 177.8 cm) mb9 12:10 Pain Scale: Adult mb9 MDM: 12:11 Patient medically screened. rt 17:38 Differential Diagnosis Hyperglycemia, infection, acute coronary syndrome. Data rt reviewed: vital signs, nurses notes, lab test result(s), EKG, radiologic studies. Consideration of Admission/Observation Patient was admitted/placed on observation. Management of patient was discussed with the following: Hospitalist: Agrees to admit. I considered the following discharge prescriptions or medication management in the emergency department Medications were administered in the Emergency Department. See MAR. Test considered but Not performed: Labs: Recent negative blood cultures, no new source of infection. Counseling: I had a detailed discussion with the patient and/or guardian regarding: the historical points, exam findings, and any diagnostic results supporting the discharge/admit diagnosis, lab results, radiology results, the need for further work-up and treatment in the hospital. 12/30 12:11 Order name: CBC with Diff; Complete Time: 13:37 rt 12/30 12:11 Order name: CMP; Complete Time: 14:04 rt 12/30 12:11 Order name: Troponin High Sensitivity; Complete Time: 14:04 rt 12/30 12:11 Order name: UAM; Complete Time: 13:37 rt 12/30 12:49 Order name: CBC Smear Scan; Complete Time: 13:37 EDMS 12/30 13:01 Order name: Urine Culture EDMS 12/30 14:45 Order name: Ptt, Activated; Complete Time: 16:27 mb9 12/30 16:19 Order name: Lactate w/ 2H reflex if indic. EDMS 12/30 16:19 Order name: Troponin High Sensitivity EDMS 12/30 16:19 Order name: Troponin High Sensitivity EDMS 12/30 16:19 Order name: Troponin High Sensitivity EDMS / 16:19 Order name: Blood Culture EDMS / 16:20 Order name: Blood Culture EDMS / 16:32 Order name: Basic Metabolic Panel EDMS / 16:32 Order name: Basic Metabolic Panel EDMS / 16:32 Order name: CBC with Automated Diff EDMS / 16:32 Order name: CBC with Automated Diff EDMS / 16:32 Order name: Magnesium EDMS / 16:32 Order name: Magnesium EDMS / 16:32 Order name: Phosphorus EDMS / 16:32 Order name: Phosphorus EDMS / 16:33 Order name: CBC with Automated Diff EDMS / 16:33 Order name: Platelet Count EDMS / 16:33 Order name: Protime (+INR) EDMS / 16:33 Order name: PTT, Activated Partial Thromb EDMS 12/30 16:33 Order name: CBC with Automated Diff EDMS / 16:33 Order name: CBC with Automated Diff EDMS / 16:33 Order name: CBC with Automated Diff EDMS 12/30 16:33 Order name: CBC with Automated Diff EDMS 12/30 16:33 Order name: Platelet Count EDMS 12/30 16:33 Order name: Platelet Count EDMS 12/30 16:33 Order name: Platelet Count EDND 12/30 16:33 Order name: Platelet Count EDMS 12/30 16:33 Order name: Platelet Count EDMS 12/30 16:33 Order name: Platelet Count EDMS 12/30 16:33 Order name: Platelet Count EDMS 12/30 16:33 Order name: Platelet Count EDMS 12/30 16:33 Order name: PTT, Activated Partial Thromb EDMS 12/30 16:33 Order name: PTT, Activated Partial Thromb EDMS 12/30 16:33 Order name: PTT, Activated Partial Thromb EDMS 12/30 16:33 Order name: PTT, Activated Partial Thromb EDMS 12/30 16:33 Order name: PTT, Activated Partial Thromb EDMS 12/30 16:55 Order name: Glucose, Ancillary Testing EDMS 12/30 12:11 Order name: Chest Single View XRAY; Complete Time: 13:37 rt 12/30 16:32 Order name: CONS Physician Consult EDND 12/30 16:32 Order name: NPO EDND 12/30 12:20 Order name: IV Saline Lock; Complete Time: 12:33 mb9 EC:29 Rate is 89 beats/min. Rhythm is regular, Normal Sinus Rhythm with No ectopy. QRS [place] rt is Normal. OR interval is normal. QRS interval is normal. QT interval is normal. No Q waves. T waves are Normal. No ST changes noted. Interpreted by me. Administered Medications: 12:40 Drug: NS 0.9% IV 1000 ml Route: IV; Rate: 1 bolus; Site: right forearm; mb9 15:33 Follow up: Response: No adverse reaction mb9 16:01 Follow up: Response: No adverse reaction; IV Status: Completed infusion mb9 15:28 Drug: Meropenem IV 1 grams Route: IV; Rate: calculated rate; Site: left antecubital; mb9 16:02 Follow up: Response: No adverse reaction; IV Status: Completed infusion mb9 15:31 Drug: NS 0.9% IV 1000 ml Route: IV; Rate: 1 bolus; Site: left antecubital; mb9 15:32 Drug: Insulin Regular Human IVP 10 units {Co-Signature: ld1 (Gina Silva RN).} Route: mb9 IVP; Site: left antecubital; 16:01 Follow up: Response: No adverse reaction mb9 15:52 Drug: Heparin (MA Drip) - (D5W IV 500 ml, [place] [address] units) 12 units/kg/hr mb9 {Co-Signature: ld1 (Gina Silva RN).} Route: IV; Rate: calculated rate; Site: left antecubital; 15:59 Drug: Heparin (MA-Bolus No thrombolytic) - HEParin IVP 60 units/kg {Co-Signature: ld1 mb9 (Gina Silva RN).} Route: IVP; Site: left antecubital; 16:02 Follow up: Response: No adverse reaction mb9 16:01 Drug: Aspirin PO 325 mg Route: G-Tube; mb9 Disposition Summary: 12/30/22 15:16 Hospitalization Ordered Hospitalization Status: Inpatient Admission rt Provider: Ace Hunter rt Location: Intensive Care Unit rt Condition: Serious rt Problem: new rt Symptoms: are unchanged rt Bed/Room Type: Standard rt Room Assignment: 6-(12/30/22 16:31) dw Diagnosis - Subsequent non-ST elevation (NSTEMI) myocardial infarction rt - Hyperglycemia, unspecified rt - Leukocytosis rt Forms: - Medication Reconciliation Form rt - SBAR form rt Critical care time excluding procedures: 18:25 Critical care time: Bedside Care: 30 minutes, Consultation: 10 minutes. Total time: 40 rt minutes Signatures: Dispatcher [employer] Cassidy Soriano RN RN Yoana Lundberg RN RN mb9 Warren Domingo MD MD rt Gina Silva RN ld1 Corrections: (The following items were deleted from the chart) 16:31 15:16 rt dw
--- NOTE | 2022-12-30 15:17 | ER ---
Nurse's Notes [facility] Name: Douglas Carrillo Age: 57 yrs Sex: Male : 1965 Arrival Date: 12/30/2022 Time: 11:58 Bed 4 Private MD: Diagnosis: Subsequent non-ST elevation (NSTEMI) myocardial infarction;Hyperglycemia, unspecified;Leukocytosis Presentation: 12/30 12:10 Chief complaint: EMS states: "Pt came from [facility] and when they went to check mb9 his glucose this morning, it read high. Gave 14 unites humalog at 0930. Went to check glucose again, continued to read high. Pt states he just feels tired.". Coronavirus screen: Vaccine status: Patient reports receiving the 2nd dose of the covid vaccine. Ebola Screen: No symptoms or risks identified at this time. Initial Sepsis Screen: Does the patient meet any 2 criteria? HR > 90 bpm. Does the patient have a suspected source of infection? No. Patient's initial sepsis screen is negative. Risk Assessment: Do you want to hurt yourself or someone else? Patient reports no desire to harm self or others. Onset of symptoms was December 30, 2022. 12:10 Method Of Arrival: EMS: [facility] mb9 12:10 Acuity: EMMANUEL 2 mb9 Triage Assessment: 12:18 General: Appears in no apparent distress. Behavior is calm, cooperative, appropriate mb9 for age. Pain: Denies pain. Neuro: Espinoza Agitation-Sedation Scale (RASS): 0 - Alert and Calm Level of Consciousness is awake, alert, obeys commands, Oriented to person, place, time, situation, Appropriate for age. Respiratory: Reports cough that is Airway is patent Respiratory effort is even, labored, Respiratory pattern is tachypnea Breath sounds are coarse bilaterally. Derm: Skin is pink, warm \\T\\ dry. 16:04 GI: PEG tube. mb9 Historical: - Allergies: 12:15 Neostigmine Methylsulfate; mb9 12:15 Sulfa (Sulfonamide Antibiotics); mb9 - Home Meds: 12:15 amlodipine 10 mg tablet daily [Active]; aspirin 81 mg Oral capsule daily [Active]; mb9 carvedilol 25 mg Oral tablet 2 times per day [Active]; ferrous sulfate 300 mg (60 mg iron)/5 mL Oral tab daily [Active]; Flomax 0.4 mg Oral capsule every day at bedtime [Active]; Lexapro 10 mg Oral tablet daily [Active]; levothyroxine 25 mcg capsule daily [Active]; Lipitor 20 mg Oral tablet every day at bedtime [Active]; omeprazole 10 mg Oral capsule,delayed release (e.c.) daily [Active]; - PMHx: 12:15 CVA; Diabetes - IDDM; Hypertension; GERD; mb9 - Immunization history:: Adult Immunizations up to date. - Social history:: Smoking status: Patient reports the use of cigarette tobacco products. - Family history:: not pertinent. Screenin:19 [facility] ED Fall Risk Assessment (Adult) History of falling in the last 3 months, mb9 including since admission No falls in past 3 months (0 pts) Confusion or Disorientation No (0 pts) Intoxicated or Sedated No (0 pts) Impaired Gait Yes (1 pt) Mobility Assist Device Used Yes (1 pt) Altered Elimination No (0 pt) Score/Fall Risk Level 0 - 2 = Low Risk Oriented to surroundings, Maintained a safe environment, Educated pt \\T\\ family on fall prevention, incl call for assistance when getting out of bed. Abuse screen: Denies threats or abuse. Nutritional screening: No deficits noted. Tuberculosis screening: No symptoms or risk factors identified. Assessment: 12:57 Reassessment: No changes from previously documented assessment. mb9 13:51 Reassessment: Mendy Fragoso - [phone]. ld1 14:00 Reassessment: No changes from previously documented assessment. Patient and/or family mb9 updated on plan of care and expected duration. Pain level reassessed. Patient is alert, oriented x 3, equal unlabored respirations, skin warm/dry/pink. 15:00 Reassessment: No changes from previously documented assessment. Patient and/or family mb9 updated on plan of care and expected duration. Pain level reassessed. Patient is alert, oriented x 3, equal unlabored respirations, skin warm/dry/pink. 16:38 Reassessment: No changes from previously documented assessment. Patient and/or family mb9 updated on plan of care and expected duration. Pain level reassessed. Patient is alert, oriented x 3, equal unlabored respirations, skin warm/dry/pink. Vital Signs: 12:10 BP 131 / 77; Pulse 82; Resp 18; Temp 98.4; Pulse Ox 96% on via tracheostomy; Weight mb9 81.65 kg; Height 5 ft. 10 in. ; Pain 0/10; 13:12 BP 123 / 65; Pulse 84; Resp 22; Pulse Ox 97% on 5 lpm via tracheostomy; mb9 13:52 BP 129 / 68; Pulse 82; Resp 19; Pulse Ox 99% ; ld1 16:38 BP 117 / 52; Pulse 82; Resp 19; Pulse Ox 97% on 5 lpm via tracheostomy; mb9 12:10 Body Mass Index 25.83 (81.65 kg, 177.8 cm) mb9 12:10 Pain Scale: Adult mb9 ED Course: 12:10 Patient arrived in ED. mb9 12:10 Warren Domingo MD is Attending Physician. rt 12:15 Triage completed. mb9 12:15 Arm band placed on. mb9 12:15 Missed attempt(s): 22 gauge in right antecubital area. bc6 12:19 Placed in gown. Bed in low position. Call light in reach. Side rails up X 1. Client mb9 placed on continuous cardiac and pulse oximetry monitoring. NIBP monitoring applied. telemetry monitor on. 12:20 Yoana Urbina, FELIBERTO is Primary Nurse. mb9 12:20 No provider procedures requiring assistance completed. mb9 12:33 CMP Sent. bc6 12:33 CBC with Diff Sent. bc6 12:33 Troponin High Sensitivity Sent. bc6 12:33 Inserted saline lock: 22 gauge in right wrist, using aseptic technique. bc6 12:40 Chest Single View XRAY In Process Unspecified. EDMS 12:40 UAM Sent. mb9 15:15 Ace Hunter MD is Hospitalizing Provider. rt 15:31 Ptt, Activated Sent. mb9 16:40 Patient admitted, IV remains in place. mb9 Administered Medications: 12:40 Drug: NS 0.9% IV 1000 ml Route: IV; Rate: 1 bolus; Site: right forearm; mb9 15:33 Follow up: Response: No adverse reaction mb9 16:01 Follow up: Response: No adverse reaction; IV Status: Completed infusion mb9 15:28 Drug: Meropenem IV 1 grams Route: IV; Rate: calculated rate; Site: left antecubital; mb9 16:02 Follow up: Response: No adverse reaction; IV Status: Completed infusion mb9 15:31 Drug: NS 0.9% IV 1000 ml Route: IV; Rate: 1 bolus; Site: left antecubital; mb9 15:32 Drug: Insulin Regular Human IVP 10 units {Co-Signature: monse1 (Gina Silva RN).} Route: mb9 IVP; Site: left antecubital; 16:01 Follow up: Response: No adverse reaction mb9 15:52 Drug: Heparin ([place] Drip) - (D5W IV 500 ml, [place] [id number] units) 12 units/kg/hr mb9 {Co-Signature: monse1 (Gina Silva RN).} Route: IV; Rate: calculated rate; Site: left antecubital; 15:59 Drug: Heparin (MT-Bolus No thrombolytic) - HEParin IVP 60 units/kg {Co-Signature: monse1 mannie (Gina Silva RN).} Route: IVP; Site: left antecubital; 16:02 Follow up: Response: No adverse reaction mb9 16:01 Drug: Aspirin PO 325 mg Route: G-Tube; mb9 Medication: 12:19 VIS not applicable for this client. mb9 Outcome: 15:16 Decision to Hospitalize by Provider. rt 16:49 Admitted to ICU accompanied by tech, room 6, with oxygen, on monitor, with chart, mb9 Report called to FELIBERTO Cunningham 16:49 Condition: stable 16:49 Instructed on the need for admit. 17:07 Patient left the ED. mb9 Signatures: Dispatcher [employer] EDMS Gina Silva, RN RN ld1 Yoana Urbina RN RN mb9 Warren Domingo MD MD rt [facility] Gina Silva RN ld1
[2022-12-30] MEDS ORDERED: ASPIRIN 325 MG TAB ONE (15:29)
[2022-12-30] MEDS ORDERED: INSULIN -REGULAR HUMAN 50 UNIT/0.5 ML ML ONE (15:29)
[2022-12-30] MEDS ORDERED: Meropenem 1000 MG/VIAL IV ONE (15:29)
[2022-12-30] MEDS ORDERED: NA CHLORIDE 0.9% 100 ML ONE (15:29)
[2022-12-30] MEDS ORDERED: HEPARIN/D5W 25,000 UNIT/500 ML BAG IV ONE (15:30)
--- NOTE | 2022-12-30 15:34 | P.HP ---
Certification for Inpatient Patient admitted to: Inpatient With expected LOS: >2 Midnights Patient will require the following post-hospital care: None Practitioner: I am a practitioner with admitting privileges, knowledge of patient current condition, hospital course, and medical plan of care. Services: Services provided to patient in accordance with Admission requirements found in Title 42 Section 412.3 of the Code of Federal Regulations Patient History Date of Service: 12/30/22 Reason for admission: NSTEMI History of Present Illness: Service was provided via video visit/Tele-Medicine. For that reason, no physical examination was performed. Mr. Douglas Carrillo is a 57 year old male who has a past medical history of a prior cerebrovascular accident s/p tracheostomy and PEG tube, chronic hypoxic respiratory failure, recent admission for aspiration pneumonia, type I diabetes mellitus, chronic obstructive pulmonary disease, hyperlipidemia, an indwelling Simmons catheter, and chronic kidney disease stage IV who presents to the [facility] Emergency Department with generalized weakness. He is nonverbal at baseline. History was obtained via Dr. Domingo. It appears that, over the last few days, he had felt generalized weakness. EMS was called and he was found to have hyperglycemia. No further history is available at this time. He is able to answered yes-no questions, and on review of systems, he denies any fevers, chills, headaches, chest pain, palpitations, shortness of breath, wheezing, cough, abdominal pain, nausea/vomiting, diarrhea, or any other symptoms. He presented to the Emergency Department for further evaluation. Upon presentation, his vital signs were notable for a respiratory rate up to 22 breaths/min. His laboratory studies were notable for a WBC count of 28,600, s hemoglobin of 8.7, s creatinine of 3.70 (baseline ~2.5), and an initial troponin of 3116.3. His EKG was without STEMI criteria. His chest x-ray revealed, "no significant change in mild right basilar lung opacities probably pneumonia. Upper lobes appear clear. Heart is normal size. Tracheostomy tube in place." Cardiiology was consulted in the Emergency Department, and recommended a heparin drip. He was admitted to the General Internal Medicine Service for further evaluation. Allergies Sulfa (Sulfonamide Antibiotics) Allergy (Verified 05/13/19 16:25) Itching/Hives/Rash Home Medications: Acetaminophen 2 tab .ROUTE Q4H PRN 10/22/22 Amlodipine [Norvasc*] 1 tab .ROUTE DAILY 10/22/22 Atorvastatin Calcium [Lipitor*] 1 tab .ROUTE BEDTIME 10/22/22 Budesonide [Pulmicort*] 2 ml .ROUTE Q12H 10/22/22 Carvedilol [Coreg] 1 tab .ROUTE BID 10/22/22 Ferrous Sulfate 5 ml .ROUTE Q12H 10/22/22 Lactulose [Enulose] 30 ml .ROUTE Q6H PRN 10/22/22 Levothyroxine Sodium 1 tab .ROUTE DAILY 10/22/22 Omeprazole 1 cap .ROUTE DAILY 10/22/22 Ondansetron [Zofran (Odt)*] 1 tab PO Q6H PRN 10/22/22 Tamsulosin HCl [Flomax] 1 cap .ROUTE BEDTIME 10/22/22 Nepro 240 ml FT QID bot 10/24/22 Aspirin [Aspirin EC 81 MG] 81 mg .ROUTE DAILY 12/16/22 Escitalopram Oxalate [Lexapro] 1 tab .ROUTE DAILY 12/16/22 Hydralazine HCl 1 tab .ROUTE TID 12/16/22 Ipratropium/Albuterol Sulfate [Iprat-Albut 0.5-3(2.5) mg/3 ml] 3 ml .ROUTE Q6H 12/16/22 Lactobacillus Rhamnosus GG [Culturelle] 1 cap .ROUTE BID 12/16/22 Zinc Oxide [Zinc Oxide 20%*] 1 appl TOP Q12H PRN 12/16/22 Insulin -Regular Human [Novolin -R*] See Protocol SQ Q6HR ml 12/27/22 Insulin Glargine,Hum.rec.anlog [Semglee] 15 unit SQ Q12HR ml 12/27/22 - Past Medical/Surgical History Diabetic: Yes -: DM I -: CKD IV (Dr. Edmonds) -: CAD -: Hypertension -: Hyperlipidemia -: PVD -: History TIA/CVA -: Congestive Heart Failure -: Appendectomy -: Left below-knee amputation -: Multiple surgeries to the right lower extremity -: Right foot all toes amputated- february 2019 Psychosocial/ Personal History: Patient lives at [facility]. - Family History Mother -: Cancer - Social History Alcohol use: Yes CD- Drugs: No Caffeine use: Yes Review of Systems General: Weakness Eyes: Unremarkable ENT: Unremarkable Respiratory: Unremarkable Cardiovascular: Unremarkable Gastrointestinal: Unremarkable Genitourinary: Unremarkable Musculoskeletal: Unremarkable Integumentary: Unremarkable Neurological: Unremarkable Lymphatics: Unremarkable Physical Examination - Vital Signs Temperature: 98.4 F Blood Pressure: 129/68 Pulse: 82 Respirations: 19 Pulse Ox (%): 99 (5 L) - Physical Exam General: Alert, In no apparent distress, Other (non-verbal, able to anser yes/no questions. Appears non-toxic.) Neck: Other (trachoestomy tube noted) - Studies Laboratory Data (last 24 hrs) 12/30/22 12:30: Sodium 138, Potassium 4.5, BUN 94 H, Creatinine 3.70 H, Glucose 726 H*, Total Bilirubin 0.4, AST 27, ALT 23, Alkaline Phosphatase 125 H 12/30/22 12:30: WBC 28.60 H, Hgb 8.7 L, Hct 28.5 L, Plt Count 482 H Assessment and Plan - Plan # Coronary Artery Disease with Non-ST Segment Elevation Myocardial Infarction # History of Cerebrovascular Accident # Hypertension # Hyperlipidemia - Evaluation thus far: - EKG: without STEMI criteria, trend - Trend troponin: first was 3116.3 - Transthoracic echocardiogram (September 2022) = "1. NORMAL LEFT VENTRICULAR EJECTION FRACTION 55-60%. 2. DIASTOLIC DYSFUNCTION. 3. MILD PULMONARY REGURGITATION." - Chest x-ray = "no significant change in mild right basilar lung opacities probably pneumonia. Upper lobes appear clear. Heart is normal size. Tracheostomy tube in place." - Management plan: - Cardiology consulted and Dr. Domingo spoke with Dr. Elliott - recommendations appreciated - Recommended heparin drip - Continue home aspirin, carvedilol, atorvastatin - Hold ANTONIO-inhibitor/ARB given KATLYN # Sepsis secondary to Aspiration Pneumonia +/- Catheter-Associated Urinary Tract Infection (POA) # Chronic Hypoxic Respiratory Failure s/p Tracheostomy # Chronic Obstructive Pulmonary Disease He met sepsis criteria based on tachypnea and leukocytosis. - Evaluation thus far: - Chest x-ray = "no significant change in mild right basilar lung opacities probably pneumonia. Upper lobes appear clear. Heart is normal size. Tracheostomy tube in place." - Requested lactate - Ordered blood cultures x 2 - Requested procalcitonin - Management plan: - Started piperacillin-tazobactam - 30 mL/kg not given due to SBP > 90 mmHg # Hyperglycemia in Type I Diabetes Mellitus - He does not appear to be in diabetic ketoacidosis - Monitor glucose levels - Correction scale insulin - Normal Saline @ 100 mL/hr # KDIGO Stage I Acute Kidney Injury on Chronic Kidney Disease Stage IV - Evaluation thus far: - Creatinine = 3.70 (baseline creatinine ~2.5) - Urinalysis = 4+ glucose, 1+ ketones, 75 leukocyte esterase, 11-20 RBCs, 20- 50 WBCs, many yeast, 2+ protein - Management plan: - Nephrology consulted - recommendations appreciated - Start Normal Saline @ 100 mL/hr - Monitor creatinine and urine output - If worsening, obtain a renal ultrasound - Renally dose medications # Hypothyroidism - Continue home levoythyroxine # Depressive Disorder - Continue home escitalopram # Benign Prostatic Hyperplasia - Hold home tamsulosin given concern for sepsis Ace Hunter M.D. - Advance Directives Does patient have a Living Will: No Does patient have a Durable POA for Healthcare: No
[2022-12-30] MEDS ORDERED: HEPARIN 5000 UNIT/ML 1 ML VIAL ONE (15:42)
[2022-12-30] MEDS ORDERED: D50W 25 GM/50 ML SYRINGE IV PRN ×3 (16:53→23:17)
[2022-12-30] MEDS ORDERED: GLUCAGON 1 MG/VIAL IM PRN ×2 (16:53→17:38)
[2022-12-30] MEDS ORDERED: NA CHLORIDE 0.9% 1,000 ML IV SCH (17:00)
[2022-12-30] MEDS ORDERED: D10W 125 ML IV PRN (17:06)
[2022-12-30] MEDS ORDERED: INSULIN -REGULAR HUMAN 50 UNIT/0.5 ML ML IV ONE ×2 (17:45→19:52)
--- NOTE | 2022-12-30 17:48 | P.PN ---
Nephrology note (S) Pt well known to me from the last admission and pt unfortunately re-admitted within 30 days of last admission, pls see my consult note from 12/16/22 for full details. Pt has come back in from NH today with hyperglycemia, leukocytosis, significant troponin leak although seen in the ICU, he denies CP, dyspnea, abd pain or N/V. Urine is present in ortega and does not appear overtly turbid. (O) Vitals reviewed in the EMR General: In no apparent distress, Cachectic HEENT: Atraumatic, Normocephalic Neck: Other (trach with trach collar) Respiratory: Other (b/l air entry, no wheezes or rhonchi anteriorly, mildly diminished at bases) Cardiovascular: Regular rate/rhythm, Diastolic murmur Gastrointestinal: Soft and benign, Non-distended, Other (PEG tube present) Musculoskeletal: No swelling, Other (Muscle mass loss) Integumentary: Other (Did not examine for decubitus) Neurological: Awake, nods in response to questions, no tremors or myoclonus Laboratory Data (last 24 hrs) Reviewed admission labs and imaging reports. Conclusions/Impression: A/P) 1. Stage III ARF per JEFFREY definition last month with presenting Cr level > 4 mg/dl last week on underlying CKD NOS, but suspected advanced (Stage IV most likely) given prior/recent labs, pt with other prior KATLYN episodes, however with his diminished muscle mass the elevated Cr levels may be even more notable. Recurrent KATLYN in the setting of likely intravascular volume depletion, hemodynamic factors, other. 2. Renal imaging when last checked did not show obstructive uropathy, pt with chronic ortega it appears. Will exchange ortega today based on last written date on the ortega bag (11/30). Chronic abnormal findings in urine, hx of UTIs/bacteriuria. With his sig leukocytosis, agree with Zosyn IV Abx. 3. Hyperkalemia recently, none today. Maintain off ACEi or ARB therapy. 4. AG metab acidosis on the last admission, none today despite BG > 500. 5. Received IVF bolus in the ER, some reports of unspecified CHF in the past, no clinical signs of fluid overload, with his hyperglycemia and leukocytosis, will cont gentle hydration 6. Significant troponin leak, NSTEMI. Troponins were neg on the last admission, trend. Any ACS protocol management per IM/Cardiology 7. Type II DM with hyperglycemia and recent DKA episode -no insulin gtt ordered by IM yet, will order Insulin regular push 10 units based on the latest BG > 500 and asked TUBE PUSHER to follow up with IM on further instructions. Amrit Howard MD, EMMA
[2022-12-30 17:59] LABS: Protime INR 0.94
[2022-12-30] MEDS: PIPER TAZO 3.375 GM in NA CHLORIDE 0.9% 100 ML IV SCH (18:14)
[2022-12-30] MEDS: NA CHLORIDE 0.9% 1,000 ML IV SCH (18:15)
[2022-12-30] MEDS: ATORVASTATIN 20 MG TAB PO SCH (20:00)
[2022-12-30] MEDS: carvediloL 25 MG TAB PO SCH (20:00)
[2022-12-30] MEDS ORDERED: INSULIN -REGULAR HUMAN 50 UNIT/0.5 ML ML SQ SCH (21:00)
[2022-12-30] MEDS: INSULIN -REGULAR HUMAN 50 UNIT/0.5 ML ML SQ SCH (23:55)
[2022-12-31] MEDS: PIPER TAZO 3.375 GM in NA CHLORIDE 0.9% 100 ML IV SCH ×3 (00:19→16:47)
[2022-12-31 05:15] LABS: Absolute Lymphocytes (CBC) 4.2 K/uL (0.7-4.9); Hematocrit 25.9 % (39.6-49.0); Lymphocytes % 22.8 % (15.3-44.8); MCV 81.1 fL (80-100); MPV 7.8 fL (7.6-11.3); RBC Red Blood Cell Count 3.19 M/uL (4.33-5.43)
[2022-12-31 05:19] LABS: Magnesium 2.6 mg/dL (1.6-2.4); Phosphorus 4.1 mg/dL (2.5-4.9); Potassium 3.9 mEq/L (3.5-5.1)
[2022-12-31] MEDS: INSULIN -REGULAR HUMAN 50 UNIT/0.5 ML ML SQ SCH ×3 (05:39→18:14)
[2022-12-31] MEDS: NA CHLORIDE 0.9% 1,000 ML IV SCH (05:39)
[2022-12-31] MEDS: LEVOTHYROXINE SOD 0.025 MG TAB PO SCH (05:39)
[2022-12-31] MEDS: carvediloL 25 MG TAB PO SCH (08:22)
[2022-12-31] MEDS: ASPIRIN EC 81 MG TAB PO SCH (08:22)
[2022-12-31] MEDS: ESCITALOPRAM 20 MG TAB PO SCH (08:23)
[2022-12-31] MEDS ORDERED: HOME MED 1 EA UNK (Levothyroxine Sodium [Levothyroxine Sodium] 25 MCG Capsule) SCH (09:00)
--- NOTE | 2022-12-31 12:26 | P.PN ---
Subjective Date of Service: 12/31/22 Chief Complaint: NSTEMI No issues overnight. Patient is resting comfortably. He denies shortness of breath. He has been afebrile. Physical Examination - Vital Signs Temperature: 97.0 F Blood Pressure: 94/36 Pulse: 65 Respirations: 14 Pulse Ox (%): 98 - Physical Exam General: In no apparent distress, Other (Awake) HEENT: Mucous membr. moist/pink Respiratory: Clear to auscultation bilaterally, Normal air movement Cardiovascular: No edema, Regular rate/rhythm, Normal S1 S2 Neurological: Other (No focal motor deficit) - Studies Laboratory Data (last 24 hrs) 12/30/22 15:15: PT 10.3, INR 0.94 12/30/22 15:15: APTT 32.3 12/30/22 12:30: Sodium 138, Potassium 4.5, BUN 94 H, Creatinine 3.70 H, Glucose 726 H*, Total Bilirubin 0.4, AST 27, ALT 23, Alkaline Phosphatase 125 H 12/30/22 12:30: WBC 28.60 H, Hgb 8.7 L, Hct 28.5 L, Plt Count 482 H Assessment And Plan - Plan Coronary Artery Disease with Non-ST Segment Elevation Myocardial Infarction/History of Cerebrovascular Accident/Hypertension/Hyperlipidemia - EKG: without STEMI criteria, trend - Trend troponin: first was 3116.3, trended down to 2652 - Transthoracic echocardiogram (September 2022) = "1. NORMAL LEFT VENTRICULAR EJECTION FRACTION 55-60%. 2. DIASTOLIC DYSFUNCTION. 3. MILD PULMONARY REGURGITATION." - Chest x-ray = "no significant change in mild right basilar lung opacities probably pneumonia. Upper lobes appear clear. Heart is normal size. Tracheostomy tube in place." - Cardiology consulted and Dr. Domingo spoke with Dr. Elliott - recommendations appreciated - Continue heparin drip - Continue home aspirin, carvedilol, atorvastatin - Hold ANTONIO-inhibitor/ARB given KATLYN Sepsis secondary to Aspiration Pneumonia +/- Catheter-Associated Urinary Tract Infection (POA)/Chronic Hypoxic Respiratory Failure s/p Tracheostomy /Chronic Obstructive Pulmonary Disease He met sepsis criteria based on tachypnea and leukocytosis. Patient with severe leukocytosis Chest x-ray = "no significant change in mild right basilar lung opacities probably pneumonia. Upper lobes appear clear. Heart is normal size. Tracheostomy tube in place." blood cultures are pending. Procalcitonin is elevated. Continue IV Zosyn Leukocytosis is improving. Hyperglycemia in Type I Diabetes Mellitus - He does not appear to be in diabetic ketoacidosis -Blood sugar levels improved. Continue to monitor blood sugar Correction scale insulin Normal Saline @ 100 mL/hr KDIGO Stage I Acute Kidney Injury on Chronic Kidney Disease Stage IV - Creatinine = 3.70 (baseline creatinine ~2.5) - Urinalysis = 4+ glucose, 1+ ketones, 75 leukocyte esterase, 11-20 RBCs, 20-50 WBCs, many yeast, 2+ protein - Nephrology consulted - recommendations appreciated - Normal Saline @ 100 mL/hr - Monitor creatinine and urine output Hypothyroidism - Continue home levoythyroxine Depressive Disorder - Continue home escitalopram Benign Prostatic Hyperplasia - Hold home tamsulosin given concern for sepsis
[2022-12-31] MEDS: NACHLORIDE 0.45% 1,000 ML IV SCH ×2 (14:00→19:03)
[2022-12-31] MEDS: HEPARIN/D5W 25,000 UNIT/500 ML BAG IV PRN (16:47)
[2022-12-31] MEDS: NEPRO 1,000 ML BOT FT SCH ×2 (17:05→20:38)
--- NOTE | 2022-12-31 17:35 | PN ---
Date of Progress Note: 12/31/2022 Subjective: The patient was seen and examined at bedside. He is doing okay. The patient is unable to give much history. No overnight events were noted. Objective: Vital Signs: Showing blood pressure of 90s. He remains on 97% on trach collar, on 28% F iO2. General: He appears in no acute distress. HEENT: Atraumatic head. Neck: Tracheostomy in place. Heart: Auscultation of the heart revealed regular rate and rhythm. Abdomen: Soft and nontender. Extremities: No edema was noted in the extremities. The patient was noted to have TMA on 1 leg and BKA on the other leg. Current Medications: Include, aspirin, atorvastatin, carvedilol 25 mg b.i.d., insulin, levothyroxine , Zosyn 3.375 g every 8 hours, Lexapro 10 mg a day, and atorvastatin. Impression: 1.Acute renal failure secondary to acute tubular necrosis, currently with improving renal function. 2.Coronary artery disease with [id number] myocardial infarction and history of cerebrovascular accident. The patient's volume status currently seems to be stable. 3.Sepsis secondary to aspiration pneumonia and catheter associated urinary tract infection. Patient is currently being treated with broad-spectrum antibiotics and monitored. 4.Type 1 diabetes with hyperglycemia. Continue insulin per protocol. Plan: The patient is currently on carvedilol 25 mg b.i.d., I will reduce the dosage to 6.25 mg b.i.d . to avoid hypotension. I will continue gentle hydration with half NS to continue to improve for increase renal perfusion. Cultures are still pending at this time. Continue antibiotics and follow up closely. VV/MODL Voice ID: [id number] Report ID: [id number]
--- NOTE | 2022-12-31 18:08 | CON ---
Date of Consultation: 12/31/2022 Reason For Consultation: Elevated troponin. History Of Present Illness: A 57-year-old male, history of CVA with tracheostomy, PEG tube, chronic respiratory failure, and paralysis, history of diabetes, presented with generalized weakness. He was found to be severely hyperglycemic, sugars around 700. However, patient denied having any chest manav n. Past Medical History: As outlined above in the HPI. Medications: Refer reconciliation sheet for detailed list. Allergies: SULFA. Family History: No premature coronary artery disease or cancer. Social History: He does not smoke or drink. Does not use any drugs. Review of Systems: All systems reviewed and they were negative except what is mentioned in the HPI. Physical Examination: Vital Signs: Reviewed. HEENT: Head and neck exam, pupils are equal, reactive to light. Intact eye movements. No JVD. No cervical lymphadenopathy. Neck: Supple. Thyroid is not enlarged. Lungs: Decreased breathing sounds with rhonchi bilaterally. No accessory muscle use or muscle retra ction. Heart: Irregular. No extra sounds. Abdomen: Soft, nontender. Bowel sounds positive. No organomegaly. No masses or hernia. No rigidi ty or rebound. Extremities: No clubbing, cyanosis, has significant edema of the lower extremities. Neuro: He is alert, awake with paralysis on the left side. Investigations: Creatinine 3.25 down from 3.7. Troponin was 3116 initially, now it is 2652. Assessment/recommendation: 1.Elevated troponin. The patient has no chest pain, but he has diabetes. This could be non-ST-elev ation myocardial infarction, but also it could be demand ischemia. I recommend anticoagulation with heparin if it is not contraindicated, baby aspirin. Obtain echo on Monday morning and once his condi tion is more stable, then I will plan for a Lexiscan nuclear stress test. Due to the advanced kidney failure, I will avoid doing heart catheterization immediately unless the stress test is abnormal. 2.Severe hyperglycemia, probably is the cause of his generalized weakness and the demand ischemia. Recommend IV hydration and IV insulin. 3.Acute on chronic renal failure due to severe dehydration, severe hyperglycemia, improved with IV f luids. Overall long-term prognosis is guarded. SR/MODL Voice ID: [id number] Report ID: [id number]
[2022-12-31] MEDS: carvediloL 6.25 MG TAB PO SCH (20:38)
[2022-12-31] MEDS: ATORVASTATIN 20 MG TAB PO SCH (20:38)
[2023-01-01] MEDS ORDERED: INSULIN -REGULAR HUMAN 50 UNIT/0.5 ML ML IV ONE ×2 (01:26→04:20)
[2023-01-01] MEDS: PIPER TAZO 3.375 GM in NA CHLORIDE 0.9% 100 ML IV SCH ×3 (01:34→16:35)
[2023-01-01 01:46] LABS: Potassium 4.6 mEq/L (3.5-5.1)
[2023-01-01] MEDS: INSULIN -REGULAR HUMAN 50 UNIT/0.5 ML ML SQ SCH ×6 (03:59→18:13)
[2023-01-01] MEDS: INSULIN GLARGINE 100 UNIT/ML SQ SCH ×2 (04:38→08:04)
[2023-01-01 05:11] LABS: Absolute Lymphocytes (CBC) 1.4 K/uL (0.7-4.9); Hematocrit 26.1 % (39.6-49.0); Lymphocytes % 11.6 % (15.3-44.8); MCV 84.4 fL (80-100); RBC Red Blood Cell Count 3.09 M/uL (4.33-5.43)
[2023-01-01] MEDS ORDERED: HEPARIN 5000 UNIT/ML 1 ML VIAL IV SCH (06:00)
[2023-01-01] MEDS: LEVOTHYROXINE SOD 0.025 MG TAB PO SCH (06:01)
[2023-01-01] MEDS: ASPIRIN EC 81 MG TAB PO SCH (08:03)
[2023-01-01] MEDS: ESCITALOPRAM 20 MG TAB PO SCH (08:03)
[2023-01-01] MEDS: carvediloL 6.25 MG TAB PO SCH ×2 (08:04→21:10)
[2023-01-01] MEDS: NEPRO 1,000 ML BOT FT SCH ×4 (09:00→21:10)
--- NOTE | 2023-01-01 11:04 | P.PN ---
Subjective Date of Service: 01/01/23 Chief Complaint: NSTEMI No issues overnight. Patient has no new complaint He denies shortness of breath. He has been afebrile. His blood sugars are elevated. Physical Examination - Vital Signs Temperature: 96.9 F Blood Pressure: 133/57 Pulse: 72 Respirations: 14 Pulse Ox (%): 100 - Physical Exam General: In no apparent distress Neck: Other (Tracheostomy collar) Respiratory: Clear to auscultation bilaterally, Normal air movement Cardiovascular: No edema, Normal S1 S2 Gastrointestinal: Normal bowel sounds, Soft and benign, Non-distended, No tenderness Musculoskeletal: No swelling Integumentary: No rashes, No cyanosis Neurological: Normal strength at 5/5 x4 extr - Studies Microbiology Data (last 24 hrs): 12/30/22 12:38 Clean Catch Urine [place] Count - Final >100,000 CFU/ML. 12/30/22 12:38 Clean Catch Urine - Final Assessment And Plan - Plan Coronary Artery Disease with Non-ST Segment Elevation Myocardial Infarction/History of Cerebrovascular Accident/Hypertension/Hyperlipidemia - EKG: without STEMI criteria, trend - Trend troponin: first was 3116.3, trended down to 2652 - Transthoracic echocardiogram (September 2022) = "1. NORMAL LEFT VENTRICULAR EJECTION FRACTION 55-60%. 2. DIASTOLIC DYSFUNCTION. 3. MILD PULMONARY REGURGITATION." - Chest x-ray = "no significant change in mild right basilar lung opacities probably pneumonia. Upper lobes appear clear. Heart is normal size. Tracheostomy tube in place." - Cardiology consulted and Dr. Domingo spoke with Dr. Elliott - recommendations appreciated - Continue heparin drip - Continue home aspirin, carvedilol, atorvastatin - Hold ANTONIO-inhibitor/ARB given KATLYN Sepsis secondary to Aspiration Pneumonia +/- Catheter-Associated Urinary Tract Infection (POA)/Chronic Hypoxic Respiratory Failure s/p Tracheostomy /Chronic Obstructive Pulmonary Disease He met sepsis criteria based on tachypnea and leukocytosis. Patient with severe leukocytosis Chest x-ray = "no significant change in mild right basilar lung opacities probably pneumonia. Upper lobes appear clear. Heart is normal size. Tracheostomy tube in place." blood cultures are pending. Procalcitonin is elevated. Continue IV Zosyn Leukocytosis has significantly improved. Hyperglycemia in Type I Diabetes Mellitus - He does not appear to be in diabetic ketoacidosis -Blood sugar levels severely elevated today. Patient started on tube feeding. Resumed home dose Lantus and titrate. Continue to monitor blood sugar Correction scale insulin Normal Saline @ 100 mL/hr given severe hyperglycemia. KDIGO Stage I Acute Kidney Injury on Chronic Kidney Disease Stage IV - Creatinine = 3.70 (baseline creatinine ~2.5) - Urinalysis = 4+ glucose, 1+ ketones, 75 leukocyte esterase, 11-20 RBCs, 20-50 WBCs, many yeast, 2+ protein - Nephrology is following. - Normal Saline @ 100 mL/hr - Monitor creatinine and urine output Hypothyroidism - Continue home levoythyroxine Depressive Disorder - Continue home escitalopram Benign Prostatic Hyperplasia - resume Tamsulosin.
[2023-01-01] MEDS ORDERED: HOME MED 1 EA UNK (Lactulose [Enulose] 10 GM/15 ML Solution) PRN (11:08)
[2023-01-01] MEDS ORDERED: LACTULOSE 20 GM/30 ML UCUP PO PRN (11:12)
[2023-01-01] MEDS: TAMSULOSIN 0.4 MG SR CAP FT SCH (12:26)
[2023-01-01] MEDS: NACHLORIDE 0.45% 1,000 ML IV SCH (14:32)
[2023-01-01] MEDS: BUDESONIDE 0.5 MG/2 ML NEB NEB SCH ×2 (14:47→19:50)
--- NOTE | 2023-01-01 14:56 | PN ---
Date of Progress Note: 01/01/2023 Subjective: Seen by bedside. No changes. The patient is very poor historian, but no reported issue s by staff. Review of Systems: No chest pain, shortness of breath, orthopnea, cough. No nausea, vomiting, diarrhea. All other syst ems reviewed and they were negative. Physical Examination: Vital Signs: Reviewed. Head and Neck: Pupils are equal, reactive to light. No JVD. No cervical lymphadenopathy. He has t racheostomy. Lungs: Rhonchi bilaterally. No accessory muscle use or muscle retraction. Heart: Irregular. No extra sounds. Abdomen: Soft, nontender. Bowel sounds positive. No organomegaly. No masses or hernia. No rigidi ty or rebound. Extremities: No clubbing or cyanosis. Intact pulses. Skin: No rash. Neurologic: Alert, awake. No new acute focal deficits appreciated. Investigations: Labs were reviewed. Assessment And Recommendations: 1.Elevated troponin. The patient has no chest pain. This is probably demand, but it could be also non-ST segment elevation myocardial infarction as he has diabetes and could be silent myocardial infa rction. Troponin trended down. Obtain echo tomorrow and once his clinical status is stable, obtain Lexiscan nuclear stress test and further plan will be made accordingly. 2.Acute on chronic renal failure due to severe hyperglycemia. This is improved. 3.Severe hyperglycemia, being managed by hospitalist. 4.Sepsis, on antibiotics. SR/MODL Voice ID: [id number] Report ID: [id number]
[2023-01-01] MEDS: HEPARIN/D5W 25,000 UNIT/500 ML BAG IV PRN (18:14)
[2023-01-01] MEDS: ATORVASTATIN 20 MG TAB PO SCH (21:10)
[2023-01-02] MEDS: PIPER TAZO 3.375 GM in NA CHLORIDE 0.9% 100 ML IV SCH ×3 (01:37→17:52)
[2023-01-02] MEDS: INSULIN -REGULAR HUMAN 50 UNIT/0.5 ML ML SQ SCH ×4 (01:37→18:12)
[2023-01-02 05:04] LABS: Absolute Lymphocytes (CBC) 2.8 K/uL (0.7-4.9); Hematocrit 25.5 % (39.6-49.0); Lymphocytes % 28.1 % (15.3-44.8); MPV 7.8 fL (7.6-11.3); RBC Red Blood Cell Count 3.11 M/uL (4.33-5.43)
[2023-01-02 05:21] LABS: Albumin 1.7 g/dL (3.4-5.0); Phosphorus 2.7 mg/dL (2.5-4.9); Potassium 3.7 mEq/L (3.5-5.1)
[2023-01-02] MEDS: NACHLORIDE 0.45% 1,000 ML IV SCH (06:40)
[2023-01-02] MEDS: LEVOTHYROXINE SOD 0.025 MG TAB PO SCH (06:41)
[2023-01-02] MEDS ORDERED: HEPARIN 5000 UNIT/ML 1 ML VIAL IV ONE (07:00)
[2023-01-02] MEDS: BUDESONIDE 0.5 MG/2 ML NEB NEB SCH ×2 (08:50→20:05)
[2023-01-02] MEDS: ASPIRIN EC 81 MG TAB PO SCH (08:57)
[2023-01-02] MEDS: INSULIN GLARGINE 100 UNIT/ML SQ SCH ×2 (08:58→20:16)
[2023-01-02] MEDS: ESCITALOPRAM 20 MG TAB PO SCH (08:58)
[2023-01-02] MEDS: carvediloL 6.25 MG TAB PO SCH ×2 (08:58→20:15)
[2023-01-02] MEDS: NEPRO 1,000 ML BOT FT SCH ×4 (09:00→20:16)
--- NOTE | 2023-01-02 10:20 | EKG ---
Test Date: 2022-12-30 Test Time: 12:13:48 Receptionist Doctor'S Office: [facility] MEASUREMENT RESULTS: Intervals: Rate: 89 [place]: 132 QRSD: 78 QT: 388 QTc: 472 [place]: P: 33 [place]: 132 QRS: 23 T: 75 INTERPRETIVE STATEMENTS: Normal sinus rhythm Normal ECG Compared to ECG 12/16/2022 02:50:53 T-wave abnormality no longer present Electronically Signed On 01-02-23 10:14:25 CDT by Serjio Vazquez
--- NOTE | 2023-01-02 12:17 | P.PN ---
Subjective Date of Service: 01/02/23 Chief Complaint: NSTEMI No issues overnight. Patient has no new complaint He denies shortness of breath. He has been afebrile. His blood sugars readings are better compared to yesterday. Physical Examination - Vital Signs Temperature: 96.8 F Blood Pressure: 151/64 Pulse: 74 Respirations: 18 Pulse Ox (%): 99 Assessment And Plan - Plan Physical Exam General: In no apparent distress Neck: Other (Tracheostomy collar) Respiratory: Clear to auscultation bilaterally, Normal air movement Cardiovascular: No edema, Normal S1 S2 Gastrointestinal: Normal bowel sounds, Soft and benign, Non-distended, No tenderness Musculoskeletal: No swelling Integumentary: No rashes, No cyanosis Neurological: Normal strength at 5/5 x4 extr Plan: Coronary Artery Disease with Non-ST Segment Elevation Myocardial Infarction/History of Cerebrovascular Accident/Hypertension/Hyperlipidemia - EKG: without STEMI criteria. - Trend troponin: first was 3116.3, trended down to 2652 - Transthoracic echocardiogram (September 2022) = "1. NORMAL LEFT VENTRICULAR EJECTION FRACTION 55-60%. 2. DIASTOLIC DYSFUNCTION. 3. MILD PULMONARY REGURGITATION." - Chest x-ray = "no significant change in mild right basilar lung opacities probably pneumonia. Upper lobes appear clear. Heart is normal size. Tracheostomy tube in place." - Cardiology consulted and Dr. Domingo spoke with Dr. Elliott. - Continue heparin drip. - Dr. Elliott recommending stress test and echocardiogram. - Continue home aspirin, carvedilol, atorvastatin -No ANTONIO-inhibitor/ARB for now given KATLYN Sepsis secondary to Aspiration Pneumonia +/- Catheter-Associated Urinary Tract Infection (POA)/Chronic Hypoxic Respiratory Failure s/p Tracheostomy /Chronic Obstructive Pulmonary Disease He met sepsis criteria based on tachypnea and leukocytosis. Patient with severe leukocytosis Chest x-ray = "no significant change in mild right basilar lung opacities probably pneumonia. Upper lobes appear clear. Heart is normal size. Tracheostomy tube in place." blood cultures: No growth to date. Urine cultures growing Jeanne. Procalcitonin is elevated. Continue IV Zosyn given high risk for aspiration pneumonia. Add Diflucan for candiduria Leukocytosis resolved. Hyperglycemia in Type I Diabetes Mellitus - He does not appear to be in diabetic ketoacidosis -Blood sugar levels severely elevated last couple of days. Levels improved today. Continue tube feeding. Home dose Lantus and titrate. Continue to monitor blood sugar Correction scale insulin KDIGO Stage I Acute Kidney Injury on Chronic Kidney Disease Stage IV - Creatinine = 3.70 (baseline creatinine ~2.5) on admit - Urinalysis = 4+ glucose, 1+ ketones, 75 leukocyte esterase, 11-20 RBCs, 20-50 WBCs, many yeast, 2+ protein - Nephrology is following. -Renal function is improving and close to baseline. - Fluid management per nephrology. - Currently on IV normal saline - Monitor creatinine and urine output Hypothyroidism - Continue home levoythyroxine Depressive Disorder - Continue home escitalopram Benign Prostatic Hyperplasia - resume Tamsulosin.
--- NOTE | 2023-01-02 12:29 | P.PN ---
Nephrology note (S) Pt well known to me from the last admission and pt unfortunately re-admitted within 30 days of last admission, pls see my consult note from 12/16/22 for full details. Pt has come back in from [facility] today with hyperglycemia, leukocytosis, significant troponin leak although seen in the ICU, he denies CP, dyspnea, abd pain or N/V. Urine is present in ortega and does not appear overtly turbid. 01/02: Seen after the weekend, pt's condition stable, remains in the ICU, not on any drips. Hemodynamically stable, denies any CP or dyspnea (O) Vitals reviewed in the EMR General: In no apparent distress, Cachectic HEENT: Atraumatic, Normocephalic Neck: Other (trach with trach collar) Respiratory: Other (b/l air entry, no wheezes or rhonchi anteriorly, mildly diminished at bases) Cardiovascular: Regular rate/rhythm, Diastolic murmur Gastrointestinal: Soft and benign, Non-distended, Other (PEG tube present) Musculoskeletal: No swelling, Other (Muscle mass loss) Integumentary: Other (Did not examine for decubitus) Neurological: Awake, nods in response to questions, no tremors or myoclonus Laboratory Data (last 24 hrs) Reviewed admission labs and imaging reports. Conclusions/Impression: A/P) 1. Stage III ARF per JEFFREY definition last month with presenting Cr level > 4 mg/dl last week on underlying CKD NOS, but suspected advanced (Stage IV most likely) given prior/recent labs, pt with other prior KATLYN episodes, however with his diminished muscle mass the elevated Cr levels may be even more notable. Recurrent KATLYN in the setting of likely intravascular volume depletion, hemodynamic factors, other. Renal function typically improves to baseline range, mid to upper 2s Cr level post hydration. 2. Renal imaging when last checked did not show obstructive uropathy, pt with chronic ortega it appears. Did exchange ortega today based on last written date on the ortega bag (11/30). Chronic abnormal findings in urine, hx of UTIs/bacteriuria. With his sig leukocytosis, agreed with Zosyn IV Abx. F/u final UCx 3. Hyperkalemia recently, none today. Maintain off ACEi or ARB therapy. 4. AG metab acidosis on the last admission, none on admission despite BG > 500. 5. Significant troponin leak, NSTEMI. Troponins were neg on the last admission. Pt has mod to higher risk for RACHEL based on two or more risk factors, will see what Cardiology's final recommendations are. 6. Type II DM with hyperglycemia and recent DKA episode -need to review Insulin and bolus feed regimen with NH on discharge given recurrent admissions. Amrit Howard MD, EMMA
[2023-01-02] MEDS: FLUCONAZOLE 200mg IVPB 200 MG/100 ML BAG IV SCH (13:19)
[2023-01-02] MEDS: TAMSULOSIN 0.4 MG SR CAP FT SCH (20:15)
[2023-01-02] MEDS: ATORVASTATIN 20 MG TAB PO SCH (20:16)
[2023-01-02] MEDS: HEPARIN/D5W 25,000 UNIT/500 ML BAG IV PRN (20:35)
[2023-01-03] MEDS: PIPER TAZO 3.375 GM in NA CHLORIDE 0.9% 100 ML IV SCH ×3 (00:40→17:37)
[2023-01-03] MEDS: NACHLORIDE 0.45% 1,000 ML IV SCH ×2 (01:30→08:40)
[2023-01-03 05:02] LABS: Hematocrit 24.7 % (39.6-49.0); MPV 7.7 fL (7.6-11.3)
[2023-01-03 05:06] LABS: Albumin 1.6 g/dL (3.4-5.0); Phosphorus 2.4 mg/dL (2.5-4.9); Potassium 3.6 mEq/L (3.5-5.1)
[2023-01-03] MEDS: INSULIN -REGULAR HUMAN 50 UNIT/0.5 ML ML SQ SCH ×4 (05:56→17:37)
[2023-01-03] MEDS ORDERED: HEPARIN 5000 UNIT/ML 1 ML VIAL IV SCH (06:00)
[2023-01-03] MEDS: LEVOTHYROXINE SOD 0.025 MG TAB PO SCH (06:05)
--- NOTE | 2023-01-03 06:53 | P.PN ---
Date of Service: 01/03/23 Subjective: ROS: 10 point ROS as noted above, otherwise negative Physical Exam: GEN: Alert, oriented, NAD HEENT: Normal conjunctiva, sclera anicteric CV: Regular rate and rhythm, no edema Pulm: Nonlabored respirations on room air ABD: Soft, nontender, nondistended MSK: No joint tenderness Integumentary: No rashes Neuro: Normal speech, normal affect vitals reviewed Problem List: VTE: Code: Dispo:
--- NOTE | 2023-01-03 07:02 | P.PN ---
Date of Service: 01/03/23 Subjective: Doing okay today loose/watery BMs today otherwise denies new issues no chest pain ROS: 10 point ROS as noted above, otherwise negative Physical Exam: GEN: Alert, oriented, NAD HEENT: Normal conjunctiva, sclera anicteric CV: Regular rate and rhythm, no edema Pulm: Nonlabored respirations, +cough, +Trach ABD: Soft, nontender, nondistended Integumentary: No rashes Neuro: nonverbal, follows commands vitals reviewed Problem List: NSTEMI, h/o CAD sepsis secondary to aspiration pneumonia +/- catheter associated UTI (POA) chronic hypoxic respiratory failure s/p tracheostomy chronic COPD h/o CVA HTN HLD NSTEMI, h/o CAD h/o CVA HTN HLD EKG: no STEMI Criteria trop elevated TTE: (09/2022): normal LVEF (55-60%), Diastolic dysfunction, mild pulm regurgitation CXR: "no significant change in mild right basilar lung opacities probably pneumonia. Upper lobes appear clear. Heart is normal size. Tracheostomy tube in place." Cardiology consulted, started on heparin drip Stress test (01/03) Small region of suspected reversible ischemia at the junction of the anterior and lateral wall mid to basal segment. Extensive regions of fixed defect involving the lateral and inferior wall, concerning for myocardial infarction. Reduced left ventricular ejection fraction, 38% Continue home aspirin, carvedilol, atorvastatin No ANTONIO-inhibitor/ARB for now given KATLYN Sepsis secondary to Aspiration Pneumonia +/- Catheter-Associated Urinary Tract Infection (POA) Chronic Hypoxic Respiratory Failure s/p Tracheostomy Chronic COPD He met sepsis criteria based on tachypnea and leukocytosis. CXR: "no significant change in mild right basilar lung opacities probably pneumonia. Upper lobes appear clear. Heart is normal size. Tracheostomy tube in place." blood cultures: No growth to date. Urine cultures growing 4+ yeast. Procalcitonin is elevated. Continue IV Zosyn given high risk for aspiration pneumonia. continue fluconazole ID consulted multiple diarrhea episodes 01/03, cdiff ordered Hyperglycemia in Type I Diabetes Mellitus not in DKA Blood sugar levels severely elevated last couple of days. improved somewhat, then high again 01/03, pt refused short acting insulin Continue tube feeding. Home dose Lantus and titrate. Continue to monitor blood sugar Correction scale insulin KDIGO Stage I Acute Kidney Injury on Chronic Kidney Disease Stage IV Creatinine = 3.70 (baseline creatinine ~2.5) on admit Urinalysis = 4+ glucose, 1+ ketones, 75 leukocyte esterase, 11-20 RBCs, 20-50 WBCs, many yeast, 2+ protein Nephrology is following. Renal function is improving and close to baseline. Fluid management per nephrology. Monitor creatinine and urine output Hypothyroidism- Continue home levoythyroxine Depressive Disorder- Continue home escitalopram Benign Prostatic Hyperplasia- resume Tamsulosin. VTE: heparin drip Code: full Dispo: NH, ~2-3 days
[2023-01-03] MEDS ORDERED: REGADENOSON 0.4 MG/5 ML SYR IV ONE (07:19)
[2023-01-03] MEDS: BUDESONIDE 0.5 MG/2 ML NEB NEB SCH ×2 (08:00→20:42)
--- NOTE | 2023-01-03 09:16 | P.CNS ---
Date of Consult: 01/03/23 Reason for Consult: sepsis, gavino UTI Chief Complaint: NSTEMI History of Present Illness: Patient is a 57 year old male who has a past medical history of a prior cerebrovascular accident s/p tracheostomy and PEG tube, chronic hypoxic respiratory failure, recent admission for aspiration pneumonia, type I diabetes mellitus, chronic obstructive pulmonary disease, hyperlipidemia, an indwelling Ortega catheter, and chronic kidney disease stage IV who presented to the ED with generalized weakness.Over the last few days, he had felt generalized weakness. EMS was called and he was found to have hyperglycemia. Upon presentation to the ED, his vital signs were notable for a respiratory rate up to 22 breaths/min. His laboratory studies were notable for a WBC count of 28,600, hemoglobin of 8.7, creatinine of 3.70 (baseline ~2.5), and an initial troponin of 3116.3. His EKG was without STEMI criteria. His chest x-ray revealed "no significant change in mild right basilar lung opacities probably pneumonia. Upper lobes appear clear. Heart is normal size. Tracheostomy tube in place." He was admitted to the General Internal Medicine Service for further evaluation. Allergies Sulfa (Sulfonamide Antibiotics) Allergy (Verified 05/13/19 16:25) Itching/Hives/Rash Home medications list reviewed: Yes Home Medications: Acetaminophen 2 tab .ROUTE Q4H PRN 10/22/22 Amlodipine [Norvasc*] 1 tab .ROUTE DAILY 10/22/22 Atorvastatin Calcium [Lipitor*] 1 tab .ROUTE BEDTIME 10/22/22 Budesonide [Pulmicort*] 2 ml .ROUTE Q12H 10/22/22 Carvedilol [Coreg] 1 tab .ROUTE BID 10/22/22 Ferrous Sulfate 5 ml .ROUTE Q12H 10/22/22 Lactulose [Enulose] 30 ml .ROUTE Q6H PRN 10/22/22 Levothyroxine Sodium 1 tab .ROUTE DAILY 10/22/22 Omeprazole 1 cap .ROUTE DAILY 10/22/22 Ondansetron [Zofran (Odt)*] 1 tab PO Q6H PRN 10/22/22 Tamsulosin HCl [Flomax] 1 cap .ROUTE BEDTIME 10/22/22 Nepro 240 ml FT QID bot 10/24/22 Aspirin [Aspirin EC 81 MG] 81 mg .ROUTE DAILY 12/16/22 Escitalopram Oxalate [Lexapro] 1 tab .ROUTE DAILY 12/16/22 Hydralazine HCl 1 tab .ROUTE TID 12/16/22 Ipratropium/Albuterol Sulfate [Iprat-Albut 0.5-3(2.5) mg/3 ml] 3 ml .ROUTE Q6H 12/16/22 Lactobacillus Rhamnosus GG [Culturelle] 1 cap .ROUTE BID 12/16/22 Zinc Oxide [Zinc Oxide 20%*] 1 appl TOP Q12H PRN 12/16/22 Insulin -Regular Human [Novolin -R*] See Protocol SQ Q6HR ml 12/27/22 Insulin Glargine,Hum.rec.anlog [Semglee] 15 unit SQ Q12HR ml 12/27/22 - Past Medical/Surgical History Diabetic: Yes -: DM I -: CKD IV (Dr. Edmonds) -: CAD -: Hypertension -: Hyperlipidemia -: PVD -: History TIA/CVA -: Congestive Heart Failure -: Appendectomy -: Left below-knee amputation -: Multiple surgeries to the right lower extremity -: Right foot all toes amputated- february 2019 Psychosocial/ Personal History: Patient lives at [facility]. - Family History Mother Medical History: Cancer - Social History Smoking Status: Unknown if ever smoked Alcohol use: Yes CD- Drugs: No Caffeine use: Yes Place of Residence: [facility] Review of Systems 10-point ROS is otherwise unremarkable General: Weakness Gastrointestinal: Diarrhea Physical Examination Temp Pulse Resp BP Pulse Ox 97.3 F 76 17 150/74 H 98 01/03/23 04:00 01/03/23 06:00 01/03/23 06:00 01/03/23 06:00 01/03/23 06:00 General: Alert, In no apparent distress, Oriented x3 HEENT: Atraumatic, Normocephalic, PERRLA Neck: Other (Tracheostomy) Respiratory: Diminished (bibasilar), Other (Trach collar 5LPM) Cardiovascular: No edema, Normal pulses Gastrointestinal: Soft and benign, Non-distended, Other (G-tube), Hyperactive Musculoskeletal: No clubbing, No swelling, Other (Left BKA) Integumentary: Pressure ulcer (Sacrum stage 2) Neurological: Other (Prior CVA, left sided weakness/paralysis) Urinary: Ortega catheter (chronic) Laboratory Data - Reviewed Microbiology Data - Reviewed Imagings Data: - Reviewed Conclusions/Impression: Problem List CAD NSTEMI Hypertension Hyperlipidemia Sepsis Pneumonia Urinary Tract Infection Chronic Hypoxic Respiratory Failure s/p tracheostomy Diabetes Mellitus Type I Hypothyroidism Acute on Chronic Kidney Disease Stage 4 Hx CVA Anemia Severe PCM Sepsis Aspiration Pneumonia - XR Chest 12/30: "No significant change in mild right basilar lung opacities probably pneumonia. Upper lobes appear clear. Heart is normal size. Tracheostomy tube in place." - Blood cultures 12/30: No growth to date - Currently on Zosyn (started 12/30) - Trach dependent. On Trach collar 5LPM Catheter Associated Urinary Tract Infection - UA 12/30: 4+ glucose, 1+ ketones, LE 75, RBC 11-20, WBC 20-50, many yeast - Urine culture 12/30: 4+ yeast not gavino albicans; colony count >100,000 cfu/ml - Chronic ortega catheter, replaced 12/30 - On Fluconazole (started 01/02) Diarrhea - Patient reports 4 episodes of liquid stool within 24 hours. - Recently hospitalized on antibiotics, discharged to senior living. - C.diff pending Leukocytosis improving. WBC was 28.6 on admission; now 9.9 Afebrile Recommendations - Patient with 4 episodes of liquid stool within 24 hours- Send for C.diff. - Fungal UTI: Continue Fluconazole x 14 days. - Pneumonia: Continue Zosyn for now - Monitor WBC and fever trends - Continue nutritional support ID will follow up and monitor patient closely. Case discussed with Flavio Merrill Critical Care: Yes
--- NOTE | 2023-01-03 09:47 | RAD REPORT ---
EXAM DESCRIPTION: NM - Rest Stress Cardiac Imaging - 01/03/2023 9:09 am CLINICAL HISTORY: troponin elevated COMPARISON: No comparisons TECHNIQUE: The patient was administered approximately 10.3 mCi of Tc 99m Sestamibi prior to resting SPECT imaging of the heart. The patient was then administered approximately 30.7 mCi of Tc 99m Sestam ibi following exercise or pharmacologic stress. Multiplanar SPECT images were reviewed. FINDINGS: Extensive regions of fixed defect involving most of the lateral and inferior wall, concern ing for an infarct. Corresponding inferior and lateral wall hypokinesia. Small adjacent region of rev ersible defect at the junction of the anterior and lateral wall mid to basal segment, could relate to an adjacent region of myocardial ischemia. The end diastolic volume is 106 ml, the end systolic volume is 66 ml, and the ejection fraction is 38 %. IMPRESSION: Small region of suspected reversible ischemia at the junction of the anterior and latera l wall mid to basal segment. Extensive regions of fixed defect involving the lateral and inferior wall, concerning for myocardial infarction. Reduced left ventricular ejection fraction, 38%.
[2023-01-03] MEDS: ASPIRIN EC 81 MG TAB PO SCH (09:54)
[2023-01-03] MEDS: carvediloL 6.25 MG TAB PO SCH ×2 (09:54→20:18)
[2023-01-03] MEDS: INSULIN GLARGINE 100 UNIT/ML SQ SCH ×2 (09:54→20:33)
[2023-01-03] MEDS: ESCITALOPRAM 20 MG TAB PO SCH (09:55)
[2023-01-03] MEDS: NEPRO 1,000 ML BOT FT SCH ×4 (09:56→20:16)
--- NOTE | 2023-01-03 11:33 | P.PN ---
Nephrology note (S) Pt well known to me from the last admission and pt unfortunately re-admitted within 30 days of last admission, pls see my consult note from 12/16/22 for full details. Pt has come back in from [place] today with hyperglycemia, leukocytosis, significant troponin leak although seen in the ICU, he denies CP, dyspnea, abd pain or N/V. Urine is present in ortega and does not appear overtly turbid. 01/02: Seen after the weekend, pt's condition stable, remains in the ICU, not on any drips. Hemodynamically stable, denies any CP or dyspnea 01/03: Stress test done this AM, report noted, pt seen getting some bolus feeds in the ICU, BP a bit higher now. Reports of loose stool, plan for C diff testing noted (O) Vitals reviewed in the EMR General: In no apparent distress, Cachectic HEENT: Atraumatic, Normocephalic Neck: Other (trach with trach collar) Respiratory: Other (b/l air entry, no wheezes or rhonchi anteriorly, mildly diminished at bases) Cardiovascular: Regular rate/rhythm, Diastolic murmur Gastrointestinal: Soft and benign, Non-distended, Other (PEG tube present) Musculoskeletal: No swelling, Other (Muscle mass loss) Integumentary: Other (Did not examine for decubitus) Neurological: Awake, nods in response to questions, no tremors or myoclonus Laboratory Data (last 24 hrs) Reviewed admission labs and imaging reports. Conclusions/Impression: A/P) 1. Stage III ARF per JEFFREY definition last month with presenting Cr level > 4 mg/dl last week on underlying CKD NOS, but suspected advanced (Stage IV most daija lam) given prior/recent labs, pt with other prior KATLYN episodes, however with his diminished muscle mass the elevated Cr levels may be even more notable. Recurrent KATLYN in the setting of likely intravascular volume depletion, hemodynamic factors, other. Renal function typically improves to baseline range, mid to upper 2s Cr level post hydration. 2. Renal imaging when last checked did not show obstructive uropathy, pt with chronic ortega it appears. Did exchange ortega on admission based on last written date on the ortega bag (11/30). Chronic abnormal findings in urine, hx of UTIs/bacteriuria. With his sig leukocytosis, agreed with Zosyn IV Abx. F/u final UCx 3. Hyperkalemia recently, none currently Maintain off ACEi or ARB therapy. 4. AG metab acidosis on the last admission, none on admission despite BG > 500. 5. Significant troponin leak, NSTEMI. Troponins were neg on the last admission. Pt has mod to higher risk for RACHEL based on two or more risk factors, will see what Cardiology's final recommendations are. Stress test does show reduced EF and some fixed and reversible defects. If LHC is pursued, will restart IVF and order NAC to mitigate RACHEL risk. 6. Type II DM with hyperglycemia and recent DKA episode -need to review Insulin and bolus feed regimen with NH on discharge given recurrent admissions. Amrit Howard MD, EMMA
[2023-01-03 11:37] LABS: C.diff Antigen/Toxin Ag neg : Tox neg (NEG : NEG)
[2023-01-03] MEDS: AMLODIPINE 5 MG TAB PO SCH (11:37)
[2023-01-03] MEDS: FLUCONAZOLE 200mg IVPB 200 MG/100 ML BAG IV SCH (14:29)
[2023-01-03] MEDS: ATORVASTATIN 20 MG TAB PO SCH (20:18)
[2023-01-03] MEDS: TAMSULOSIN 0.4 MG SR CAP FT SCH (20:47)
[2023-01-03] MEDS: HEPARIN/D5W 25,000 UNIT/500 ML BAG IV PRN (21:13)
[2023-01-03] MEDS ORDERED: HYDRALAZINE HCL 20 MG/ML VIAL IV PRN (22:09)
[2023-01-04] MEDS: INSULIN -REGULAR HUMAN 50 UNIT/0.5 ML ML SQ SCH ×4 (00:03→16:48)
[2023-01-04] MEDS: PIPER TAZO 3.375 GM in NA CHLORIDE 0.9% 100 ML IV SCH ×3 (01:04→16:47)
[2023-01-04 05:13] LABS: Absolute Lymphocytes (CBC) 2.9 K/uL (0.7-4.9); Hematocrit 25.5 % (39.6-49.0); Lymphocytes % 25.9 % (15.3-44.8); MCV 81.1 fL (80-100); MPV 7.6 fL (7.6-11.3); RBC Red Blood Cell Count 3.15 M/uL (4.33-5.43)
[2023-01-04 05:19] LABS: Albumin 1.7 g/dL (3.4-5.0); Phosphorus 2.3 mg/dL (2.5-4.9); Potassium 3.3 mEq/L (3.5-5.1)
[2023-01-04] MEDS: LEVOTHYROXINE SOD 0.025 MG TAB PO SCH (06:40)
--- NOTE | 2023-01-04 07:02 | P.PN ---
Date of Service: 01/04/23 Subjective: feeling okay today cough improving, slightly less phlegm 5-6 diarrhea episodes since yesterday morning, ~2 overnight (slowing down) no new/worsening symptoms no chest pain afebrile ROS: 10 point ROS as noted above, otherwise negative Physical Exam: GEN: Alert, oriented, NAD HEENT: Normal conjunctiva, sclera anicteric CV: Regular rate and rhythm, no edema Pulm: Nonlabored respirations, +cough, +Trach secretions ABD: Soft, nontender, nondistended Neuro: nonverbal, follows commands vitals reviewed Problem List: NSTEMI, h/o CAD sepsis secondary to aspiration pneumonia +/- catheter associated UTI (POA) chronic hypoxic respiratory failure s/p tracheostomy chronic COPD h/o CVA HTN HLD Pressure ulcer, Stage II NSTEMI, h/o CAD h/o CVA HTN HLD NSTEMI, elevated trop TTE: (09/2022): normal LVEF (55-60%), Diastolic dysfunction, mild pulm regurgitation Cardiology consulted, on heparin drip Stress test (01/03) Small region of suspected reversible ischemia at the junction of the anterior and lateral wall mid to basal segment. Extensive regions of fixed defect involving the lateral and inferior wall, concerning for myocardial infarction. Reduced LVEF: 38% Heart Cath planned (01/05) Continue home aspirin, carvedilol, atorvastatin No ANTONIO-inhibitor/ARB for now given KATLYN nephrology following Sepsis secondary to Aspiration Pneumonia +/- Catheter-Associated Urinary Tract Infection (POA) Chronic Hypoxic Respiratory Failure s/p Tracheostomy Chronic COPD He met sepsis criteria based on tachypnea and leukocytosis. CXR: "no significant change in mild right basilar lung opacities probably pneumonia. Upper lobes appear clear. Heart is normal size. Tracheostomy tube in place." blood cultures: No growth to date. Urine cultures growing 4+ yeast. Procalcitonin is elevated. Continue IV Zosyn given high risk for aspiration pneumonia. continue fluconazole ID consulted multiple diarrhea episodes 01/03 cdiff negative improving Hyperglycemia in Type I Diabetes Mellitus not in DKA Blood sugar levels severely elevated last couple of days. improved somewhat, then high again 01/03, pt refused short acting insulin Continue tube feeding. Home dose Lantus and titrate as needed KDIGO Stage I Acute Kidney Injury on Chronic Kidney Disease Stage IV Creatinine = 3.70 (baseline creatinine ~2.5) on admission Urinalysis = 4+ glucose, 1+ ketones, 75 leukocyte esterase, 11-20 RBCs, 20-50 WBCs, many yeast, 2+ protein Nephrology is following. Renal function is improving and close to baseline. Fluid management per nephrology. prep for cath 01/05 Monitor creatinine and urine output Hypothyroidism- Continue home levoythyroxine Depressive Disorder- Continue home escitalopram Benign Prostatic Hyperplasia- resume Tamsulosin. VTE: heparin drip Code: full Dispo: NH, ~2-3 days
--- NOTE | 2023-01-04 07:15 | ECHO ---
HEIGHT: 6 ft 0 in WEIGHT: 165 lb 4 oz DATE OF STUDY: 01/03/[address]: Serjio Vazquez MD 2-DIMENSIONAL: YES M.MODE: YES DOPPLER: YES COLOR FLOW: YES TDS: PORTABLE: YES DEFINITY: BUBBLE STUDY: DIAGNOSIS: CHEST PAIN CARDIAC HISTORY: CATHERIZATION: SURGERY: PROSTHETIC VALVE: PACEMAKER: MEASUREMENTS (cm) DIASTOLIC (NORMALS) SYSTOLIC (NORMALS) IVSd 1.0 (0.6-1.2) LA Diam 3.0 (1.9-4.0) LVEF 54% LVIDd 4.9 (3.5-5.7) LVIDs 3.5 (2.0-3.5) %FS 28% LVPWd 1.0 (0.6-1.2) Ao Diam 2.9 (2.0-3.7) 2 DIMENSIONAL ASSESSMENT: RIGHT ATRIUM: NORMAL LEFT ATRIUM: NORMAL RIGHT VENTRICLE: NORMAL LEFT VENTRICLE: NORMAL TRICUSPID VALVE: NORMAL MITRAL VALVE: NORMAL PULMONIC VALVE: NORMAL AORTIC VALVE: NORMAL PERICARDIAL EFFUSION: NONE AORTIC ROOT: NORMAL LEFT VENTRICULAR WALL MOTION: DECREASED LEFT VENTRICULAR COMPLIANCE DOPPLER/COLOR FLOW: DECREASED LEFT VENTRICULAR COMPLIANCE COMMENTS: 1. DIASTOLIC DYSFUNCTION 2. NORMAL EJECTION FRACTION 3. NO EFFUSION TECHNOLOGIST: ADELSO SOL
--- NOTE | 2023-01-04 07:24 | TREADPHA ---
DX: ELEVATED TROPONIN Date of Study: 01/03/2023 Ht: 6' 0 " Wt: 165 lb 4 oz Consulting Physician: ALISIA MEDICATIONS: ASPIRIN, LIPITOR, PULMICORT, COREG, NEPRO, LEXAPRO, GLUCAGEN, HEPARIN, SEMGLEE, NOVOLIN-R, SYNTHROID HISTORY: 57 YEAR OLD MALE WITH HISTORY OF TRACH, DIABETES MELLITUS TYPE II, CEREBRAL VASCULAR ACCIDENT, HYPERTHYROIDISM, HYPERLIPIDEMIA, HYPERTENSION. NO PREVIOUS HEART SURGERIES. DENIES ALCOHOL OR DRUG USE. COMPLAINT OF CHEST PAIN. PHYSICIAL EXAMINATION: RESTING B.P.: 164/86 RESTING H.R.: 81 RESTING EKG: NORMAL PROTOCOL: PHARMACOLOGIC EXERCISE TIME: 3:30 B.P. AT PEAK STRESS: 109/58 IMPRESSION: LEXISCAN INJECTED. CARDIOLITE GIVEN PER PROTOCOL. SEE NUCLEAR MEDICINE REPORT. FREQUENT PREMATURE ATRIAL COMPLEXES NOTED PRE, DURING, AND POST PROCEDURE. PATIENT DENIES CHEST PAIN OR SHORTNESS OF BREATH. NO SUPRAVENTRICULAR TACHYCARDIA, VENTRICULAR TACHYCARDIA, AND PREMATURE VENTRICULAR COMPLEXES.
[2023-01-04] MEDS: BUDESONIDE 0.5 MG/2 ML NEB NEB SCH ×2 (07:50→20:30)
[2023-01-04] MEDS: LACTOBACILLUS/ACIDOPHILUS TAB PO SCH ×2 (07:59→20:54)
[2023-01-04] MEDS: AMLODIPINE 5 MG TAB PO SCH (08:04)
[2023-01-04] MEDS: ESCITALOPRAM 20 MG TAB PO SCH (08:04)
[2023-01-04] MEDS: NEPRO 1,000 ML BOT FT SCH ×4 (08:05→20:54)
[2023-01-04] MEDS: carvediloL 6.25 MG TAB PO SCH ×2 (08:06→20:55)
[2023-01-04] MEDS: INSULIN GLARGINE 100 UNIT/ML SQ SCH ×2 (08:06→20:55)
[2023-01-04] MEDS: ASPIRIN EC 81 MG TAB PO SCH (08:07)
[2023-01-04] MEDS ORDERED: POTASSIUM 25 MEQ EFFERV TAB PO ONE (08:16)
--- NOTE | 2023-01-04 09:05 | P.PN ---
Date of Service: 01/04/23 Chief Complaint: generalized weakness Subjective: No new changes. No acute events reported overnight. Patient remains in ICU. He is awake and oriented x3. Family at bedside. Denies any new complaints at this time. Physical Examination Temp Pulse Resp BP Pulse Ox 97.3 F 88 21 H 171/82 H 96 01/04/23 04:00 01/04/23 08:06 01/04/23 06:00 01/04/23 08:06 01/04/23 06:00 General: Alert, In no apparent distress, Oriented x3 HEENT: Atraumatic, Normocephalic, PERRLA Neck: Tracheostomy Respiratory: Diminished (bibasilar), on Trach collar 5LPM Cardiovascular: No edema, Normal pulses Gastrointestinal: Hyperactive bowel sounds, Soft and benign, Non-distended, G- tube Musculoskeletal: No clubbing, No swelling. 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 Integumentary: Pressure ulcer sacrum stage 2 Neurological: Prior CVA, left sided weakness/paralysis Urinary: Ortega catheter (chronic) Studies Laboratory Data - Reviewed Microbiology Data - Reviewed Imagings Data: - Reviewed Medications List Reviewed: Yes Impression and Plan Problem List CAD NSTEMI Hypertension Hyperlipidemia Sepsis Pneumonia Urinary Tract Infection Chronic Hypoxic Respiratory Failure s/p tracheostomy Diabetes Mellitus Type I Hypothyroidism Acute on Chronic Kidney Disease Stage 4 Hx CVA Anemia Severe PCM Sepsis Aspiration Pneumonia - XR Chest 12/30: "No significant change in mild right basilar lung opacities probably pneumonia. Upper lobes appear clear. Heart is normal size. Tracheostomy tube in place." - Blood cultures 12/30: No growth to date - Currently on Zosyn (started 12/30) - Trach dependent. On Trach collar 5LPM Catheter Associated Urinary Tract Infection - UA 12/30: 4+ glucose, 1+ ketones, LE 75, RBC 11-20, WBC 20-50, many yeast - Urine culture 12/30: 4+ yeast not gavino albicans; colony count >100,000 cfu/ml - Chronic ortega catheter, replaced 12/30 - On Fluconazole (started 01/02) Diarrhea - Recently hospitalized on antibiotics, discharged to [facility]. - Multiple liquid stools reported. - C.diff negative 01/03 - On probiotic NSTEMI: Cardiology following. Leukocytosis improving, WBC 11.4 Afebrile Recommendations - Fungal UTI: Continue Fluconazole x 14 days. - Pneumonia: Continue Zosyn x 7 days (started on 12/30). - Apply barrier cream to sacrum/buttocks - Blood glucose management - Monitor WBC and fever trends - Continue nutritional support ID will follow up and monitor patient closely. Case discussed with Flavio Merrill
--- NOTE | 2023-01-04 11:53 | PN ---
Date of Progress Note: 01/04/2023 Mr. Carrillo has been followed by Dr. Elliott and I for diabetes, hypertension, dyslipidemia, congestive heart failure, has a history of trach. Echocardiogram actually showed a fairly normal ejection frac tion with some diastolic dysfunction, although stress test was positive in the anterior lateral wall for ischemia and some pause as well. We will plan to do a left heart catheterization on 01/05/2023 t o define his coronary anatomy. He has never had any cardiac issues in the past. He understands the risks and the benefits of the procedure and he agrees to proceed. ADELSO/JOHNSON Voice ID: [id number] Report ID: [id number]
--- NOTE | 2023-01-04 11:59 | PN ---
Date of Progress Note: 01/02/2023 Mr. Carrillo was admitted to Dr. Hunter and Dr. Campuzano on 12/30/2022 and has been followed by Dr. Elliott . I would rather recommend an echocardiogram and Lexiscan because of elevated troponin of 2662. He has very poorly controlled sugars, glucose of 451, elevated white count. He is on insulin, Thyroid, aspirin, Lipitor, heparin, and carvedilol. Has a history of tracheostomy. Echocardiogram is still p ending and Lexiscan is still pending. Continue present regimen. We will see what those show before making further decision. DAELSO/ROMELIAL Voice ID: [id number] Report ID: [id number]
[2023-01-04] MEDS: FLUCONAZOLE 200mg IVPB 200 MG/100 ML BAG IV SCH (12:32)
--- NOTE | 2023-01-04 16:43 | P.PN ---
Nephrology note (S) Pt well known to me from the last admission and pt unfortunately re-admitted within 30 days of last admission, pls see my consult note from 12/16/22 for full details. Pt has come back in from [place] today with hyperglycemia, leukocytosis, significant troponin leak although seen in the ICU, he denies CP, dyspnea, abd pain or N/V. Urine is present in ortega and does not appear overtly turbid. 01/02: Seen after the weekend, pt's condition stable, remains in the ICU, not on any drips. Hemodynamically stable, denies any CP or dyspnea 01/03: Stress test done this AM, report noted, pt seen getting some bolus feeds in the ICU, BP a bit higher now. Reports of loose stool, plan for C diff testing noted 01/04: Cardiology note reviewed and it appears plan now is for [facility] tmrw in light of abnormal stress test. Pt seen otherwise resting comfortably, no acute health issues (O) Vitals reviewed in the EMR General: In no apparent distress, Cachectic HEENT: Atraumatic, Normocephalic Neck: Other (trach with trach collar) Respiratory: Other (b/l air entry, no wheezes or rhonchi anteriorly, mildly diminished at bases) Cardiovascular: Regular rate/rhythm, Diastolic murmur Gastrointestinal: Soft and benign, Non-distended, Other (PEG tube present) Musculoskeletal: No swelling, Other (Muscle mass loss) Integumentary: Other (Did not examine for decubitus) Neurological: Awake, nods in response to questions, no tremors or myoclonus Laboratory Data (last 24 hrs) Reviewed admission labs and imaging reports. Conclusions/Impression: A/P) 1. Stage III ARF per JEFFREY definition last month with presenting Cr level > 4 mg/dl last week on underlying CKD NOS, but suspected advanced (Stage IV most likely) given prior/recent labs, pt with other prior KATLYN episodes, however with his diminished muscle mass the elevated Cr levels may be even more notable. Recurrent KATLYN in the setting of likely intravascular volume depletion, hemodyna jose armando factors, other. Renal function typically improves to baseline range, mid to upper 2s Cr level post hydration. 2. Renal imaging when last checked did not show obstructive uropathy, pt with chronic ortega it appears. Did exchange ortega on admission based on last written date on the ortega bag (11/30). Chronic abnormal findings in urine, hx of UTIs/bacteriuria. WBC improved with Abx 3. Hyperkalemia recently, none currently Maintain off ACEi or ARB therapy. 4. AG metab acidosis on the last admission, none on admission despite BG > 500. 5. Significant troponin leak, NSTEMI. Troponins were neg on the last admission. Pt has mod to higher risk for RACHEL based on two or more risk factors. Stress test does show reduced EF and some fixed and reversible defects. Since plan is for [facility] tmrw, will restart IVF (at lower rate given low EF, will f/u on LVEDP on cath) and order NAC to mitigate RACHEL risk. 6. Type II DM with hyperglycemia and recent DKA episode -need to review Insulin and bolus feed regimen with NH on discharge given recurrent admissions. Amrit Howard MD, EMMA
[2023-01-04] MEDS: ACETYLCYST 20% 800 MG/4 ML VIAL PO SCH (16:52)
[2023-01-04] MEDS: HEPARIN/D5W 25,000 UNIT/500 ML BAG IV PRN (17:00)
[2023-01-04] MEDS: ATORVASTATIN 20 MG TAB PO SCH (20:54)
[2023-01-04] MEDS: TAMSULOSIN 0.4 MG SR CAP FT SCH (21:00)
[2023-01-04] MEDS: NA CHLORIDE 0.9% 1,000 ML IV SCH (22:35)
[2023-01-05] MEDS: INSULIN -REGULAR HUMAN 50 UNIT/0.5 ML ML SQ SCH ×4 (00:04→17:16)
[2023-01-05] MEDS: PIPER TAZO 3.375 GM in NA CHLORIDE 0.9% 100 ML IV SCH ×3 (02:14→17:17)
[2023-01-05] MEDS: ACETYLCYST 20% 800 MG/4 ML VIAL PO SCH ×2 (04:45→17:17)
[2023-01-05 04:57] LABS: Absolute Lymphocytes (CBC) 2.7 K/uL (0.7-4.9); Hematocrit 24.2 % (39.6-49.0); Lymphocytes % 26.3 % (15.3-44.8); MCV 80.8 fL (80-100); MPV 7.5 fL (7.6-11.3); RBC Red Blood Cell Count 2.99 M/uL (4.33-5.43)
[2023-01-05 05:09] LABS: Albumin 1.6 g/dL (3.4-5.0); Bilirubin Total 0.2 mg/dL (0.2-1.0); Magnesium 1.9 mg/dL (1.6-2.4); Potassium 3.7 mEq/L (3.5-5.1); Protein, Total 6.5 g/dL (6.4-8.2)
[2023-01-05] MEDS: LEVOTHYROXINE SOD 0.025 MG TAB PO SCH (06:29)
[2023-01-05] MEDS ORDERED: FENTANYL CITR 100 MCG/2 ML ONE (06:45)
[2023-01-05] MEDS ORDERED: HEPA 1000U/500MLS 2,000 UNIT/1,000 ML BAG IV ONE (06:45)
[2023-01-05] MEDS ORDERED: LIDOCAINE 1% 20 ML MDV ONE (06:45)
[2023-01-05] MEDS ORDERED: VERAPAMIL HCL 10 MG/4 ML VIAL IV ONE (06:46)
[2023-01-05] MEDS ORDERED: ASPIRIN 325 MG TAB ONE (06:46)
[2023-01-05] MEDS ORDERED: CLOPIDOGREL 75 MG TABLET ONE (06:46)
[2023-01-05] MEDS ORDERED: MIDAZOLAM HCL 2 MG/2 ML INJ ONE (06:46)
[2023-01-05] MEDS ORDERED: HEPARIN 5000 UNIT/ML 1 ML VIAL ONE (06:46)
[2023-01-05] MEDS ORDERED: ATROPINE SULF 1 MG/10 ML SYR IV ONE (06:47)
[2023-01-05] MEDS ORDERED: HEPARIN 10,000 UNIT/10 ML VIAL IV ONE (06:47)
[2023-01-05] MEDS ORDERED: NITROGLYCERIN 100 MCG/ML SYR (for cath lab use only) IV ONE (06:47)
[2023-01-05] MEDS ORDERED: TICAGRELOR 90 MG TABLET PO ONE (06:47)
--- NOTE | 2023-01-05 06:51 | P.PN ---
Date of Service: 01/05/23 Subjective: tolerated cath this morning doing ok ROS: 10 point ROS as noted above, otherwise negative Physical Exam: GEN: Alert, oriented, NAD HEENT: Normal conjunctiva, sclera anicteric CV: Regular rate and rhythm, no edema Pulm: Nonlabored respirations, +cough, +Trach secretions ABD: Soft, nontender, nondistended Neuro: nonverbal, follows commands vitals reviewed Problem List: NSTEMI, h/o CAD sepsis secondary to aspiration pneumonia +/- catheter associated UTI (POA) chronic hypoxic respiratory failure s/p tracheostomy chronic COPD h/o CVA HTN HLD Pressure ulcer, Stage II NSTEMI, h/o CAD h/o CVA HTN HLD NSTEMI, elevated trop TTE: (09/2022): normal LVEF (55-60%), Diastolic dysfunction, mild pulm regurgitation Cardiology consulted, on heparin drip Stress test (01/03) positive Small region of suspected reversible ischemia at the junction of the anterior and lateral wall mid to basal segment. Extensive regions of fixed defect involving the lateral and inferior wall, concerning for myocardial infarction. Reduced LVEF: 38% Heart Cath (01/05) Severe mid LAD stenosis 80%, status post successful PCI. Severe OM1 branch stenosis; however, it is very small vessel (less than 1mm in diameter), will be left for medical management. Continue home aspirin, carvedilol, atorvastatin added Brilinta 01/05 per cardio No ANTONIO-inhibitor/ARB for now given KATLYN nephrology following Sepsis secondary to Aspiration Pneumonia +/- Catheter-Associated Urinary Tract Infection (POA) Chronic Hypoxic Respiratory Failure s/p Tracheostomy Chronic COPD He met sepsis criteria based on tachypnea and leukocytosis. CXR: "no significant change in mild right basilar lung opacities probably pneumonia. Upper lobes appear clear. Heart is normal size. Tracheostomy tube in place." blood cultures: No growth to date. Urine cultures growing 4+ yeast. Procalcitonin is elevated. ID consulted Continue IV Zosyn given high risk for aspiration pneumonia. - 1 week total continue fluconazole for 2 weeks multiple diarrhea episodes 01/03 cdiff negative improving Hyperglycemia in Type I Diabetes Mellitus not in DKA; labile Continue tube feeding. Home dose Lantus and titrate as needed KDIGO Stage I Acute Kidney Injury on Chronic Kidney Disease Stage IV Creatinine = 3.70 (baseline creatinine ~2.5) on admission Urinalysis = 4+ glucose, 1+ ketones, 75 leukocyte esterase, 11-20 RBCs, 20-50 WBCs, many yeast, 2+ protein Nephrology is following. Renal function is improving and close to baseline. Fluid management per nephrology. Monitor creatinine and urine output; especially after cath Hypothyroidism- Continue home levoythyroxine Depressive Disorder- Continue home escitalopram Benign Prostatic Hyperplasia- resume Tamsulosin. VTE: off hep drip Code: full Dispo: NH, ~2-3 days
[2023-01-05] MEDS ORDERED: HYDRALAZINE HCL 20 MG/ML VIAL ONE (07:48)
[2023-01-05] MEDS: BUDESONIDE 0.5 MG/2 ML NEB NEB SCH ×2 (08:00→20:50)
[2023-01-05] MEDS: INSULIN GLARGINE 100 UNIT/ML SQ SCH ×2 (09:00→21:47)
[2023-01-05] MEDS: ASPIRIN EC 81 MG TAB PO SCH (09:28)
[2023-01-05] MEDS: NEPRO 1,000 ML BOT FT SCH ×4 (09:29→21:46)
[2023-01-05] MEDS: LACTOBACILLUS/ACIDOPHILUS TAB PO SCH ×2 (09:29→21:46)
[2023-01-05] MEDS: carvediloL 6.25 MG TAB PO SCH ×2 (09:29→21:45)
[2023-01-05] MEDS: ESCITALOPRAM 20 MG TAB PO SCH (09:29)
[2023-01-05] MEDS: AMLODIPINE 5 MG TAB PO SCH (09:29)
--- NOTE | 2023-01-05 10:02 | P.PN ---
Date of Service: 01/05/23 Chief Complaint: generalized weakness Subjective: s/p PCI this morning. Tolerated well. Denies any new complaints. No acute events reported overnight. Physical Examination Temp Pulse Resp BP Pulse Ox 97.6 F 77 19 180/76 H 98 01/05/23 09:00 01/05/23 09:29 01/05/23 09:00 01/05/23 09:29 01/05/23 09:00 General: Alert, In no apparent distress, Oriented x3 HEENT: Atraumatic, Normocephalic, PERRLA Neck: Tracheostomy Respiratory: Diminished (bibasilar), on Trach collar 5LPM Cardiovascular: No edema, Normal pulses Gastrointestinal: Hyperactive bowel sounds, Soft and benign, Non-distended, G- tube Musculoskeletal: No clubbing, No swelling. 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 Integumentary: Pressure ulcer sacrum stage 2 Neurological: Prior CVA, left sided weakness/paralysis Urinary: Ortega catheter (chronic) Studies Laboratory Data - Reviewed Microbiology Data - Reviewed Imagings Data: - Reviewed Medications List Reviewed: Yes Impression and Plan Problem List CAD NSTEMI Hypertension Hyperlipidemia Sepsis Pneumonia Urinary Tract Infection Chronic Hypoxic Respiratory Failure s/p tracheostomy Diabetes Mellitus Type I Hypothyroidism Acute on Chronic Kidney Disease Stage 4 Hx CVA Anemia Severe PCM Sepsis Aspiration Pneumonia - XR Chest 12/30: "No significant change in mild right basilar lung opacities probably pneumonia. Upper lobes appear clear. Heart is normal size. Tracheostomy tube in place." - Blood cultures 12/30: No growth to date - Currently on Zosyn (started 12/30) - Trach dependent. On Trach collar 5LPM Catheter Associated Urinary Tract Infection - UA 12/30: 4+ glucose, 1+ ketones, LE 75, RBC 11-20, WBC 20-50, many yeast - Urine culture 12/30: 4+ yeast not gavino albicans; colony count >100,000 cfu/ml - Chronic ortega catheter, replaced 12/30 - On Fluconazole (started 01/02) Diarrhea - Recently hospitalized on antibiotics, discharged to senior living. - Multiple liquid stools reported. - C.diff negative 01/03 - On probiotic NSTEMI: Cardiology following. s/p left heart cath 01/05. Leukocytosis improving (WBC 11.4 -> 10.2 - on 01/05) Afebrile Recommendations - Fungal UTI: Continue Fluconazole x 14 days. - Pneumonia: Continue Zosyn x 7 days (started on 12/30). - Apply barrier cream to sacrum/buttocks - Blood glucose management - Monitor WBC and fever trends - Continue nutritional support - Aspiration precautions ID will follow up and monitor patient closely. Case discussed with Flavio Merrill
--- NOTE | 2023-01-05 11:34 | OP ---
Date of Procedure: 01/05/2023 Surgeon: NOEMI REEVES Procedure Performed: 1.Selective coronary angiogram. 2.Left heart catheterization. 3.PCI of the mid LAD severe stenosis. Used 3.0 x 28 mm Synergy drug-eluting stent. Indication: Non-ST elevation myocardial infarction. Access: Right radial artery 6-Zambian closed with TR band. Complications: None. Bleeding: Less than 20 mL. Anesthesia: Total contrast amount used was 48 mL. Description Of Procedure: After risks, benefits, alternatives were explained, the patient agreed to procedure and signed informed consent. The patient was brought into cardiac catheterization laborato , prepped and draped in the usual sterile fashion. Then, I accessed right radial artery using pedi atric micropuncture kit, placed 6-Zambian Slender sheath and took a 5-Zambian [place] 4.0 catheter into t he aortic root, engaged left main and the right coronary artery, took standard views. Catheter was p ushed over the wire into the LV, measured LVEDP, pullback did not record any gradient. Then, we gave systemic heparin to assure ACT level above 250 and 180 of Brilinta and 325 aspirin and then took an XB3.5 left guide into the aortic root over a J-wire, engaged left main and short Run-Through into the LAD, placed it distally. Lesion was pre-dilated using a 3.0 balloon and then placed 3.0 x 28 mm Syn ergy drug-eluting stent across the area of stenosis with excellent expansion and 0% residual stenosis . Then, final angiogram was satisfactory. I removed the guide and sheath and of course the wire as well and placed TR band with good hemostasis. Findings: 1.Left main; normal. 2.LAD; proximal 20% to 30%, then mid 80%, status post successful PCI and then distal, there is a foc al 30% stenosis. Diagonal branch has proximal 60% stenosis. 3.The left circumflex; it is nondominant circulation with mid 60% and an OM branch has 2 tandem lesi ons that are 99%, but it is very small vessel less than 1 mm in diameter. 4.RCA; it is a medium-sized, dominant, luminal regularities and the PDA has multiple new lesions wit h diffuse 60% to 70% with a small vessel as well. 5.Elevated LVEDP at 9 mmHg. Conclusion: 1.Severe mid LAD stenosis, status post successful PCI. 2.Severe OM1 branch stenosis; however, it is very small vessel, will be left for medical management. Plan: Aspirin, Brilinta, and high-dose statin. SR/MODL Voice ID: [id number] Report ID: [id number]
[2023-01-05] MEDS: FLUCONAZOLE 200mg IVPB 200 MG/100 ML BAG IV SCH (12:06)
--- NOTE | 2023-01-05 16:34 | P.PN ---
Nephrology note (S) Pt well known to me from the last admission and pt unfortunately re-admitted within 30 days of last admission, pls see my consult note from 12/16/22 for full details. Pt has come back in from [place] today with hyperglycemia, leukocytosis, significant troponin leak although seen in the ICU, he denies CP, dyspnea, abd pain or N/V. Urine is present in ortega and does not appear overtly turbid. 01/02: Seen after the weekend, pt's condition stable, remains in the ICU, not on any drips. Hemodynamically stable, denies any CP or dyspnea 01/03: Stress test done this AM, report noted, pt seen getting some bolus feeds in the ICU, BP a bit higher now. Reports of loose stool, plan for C diff testing noted 01/04: Cardiology note reviewed and it appears plan now is for [facility] tmrw in light of abnormal stress test. Pt seen otherwise resting comfortably, no acute health issues 01/05: Pt seen s/p [facility], findings reviewed, UOP remains good, stable vitals post procedure (O) Vitals reviewed in the EMR General: In no apparent distress, Cachectic HEENT: Atraumatic, Normocephalic Neck: Other (trach with trach collar) Respiratory: Other (b/l air entry, no wheezes or rhonchi anteriorly, mildly diminished at bases) Cardiovascular: Regular rate/rhythm, Diastolic murmur Gastrointestinal: Soft and benign, Non-distended, Other (PEG tube present) Musculoskeletal: No swelling, Other (Muscle mass loss) Integumentary: Other (Did not examine for decubitus) Neurological: Awake, nods in response to questions, no tremors or myoclonus Laboratory Data (last 24 hrs) Reviewed admission labs and imaging reports. Conclusions/Impression: A/P) 1. Stage III ARF per JEFFREY definition last month with presenting Cr level > 4 mg/dl last week on underlying CKD NOS, but suspected advanced (Stage IV most likely) given prior/recent labs, pt with other prior KATLYN episodes, however with his diminished muscle mass the elevated Cr levels may be even more notable. Recurrent KATLYN in the setting of likely intravascular volume depletion, hemodynamic factors, other. Renal function typically improves to baseline range, mid to upper 2s Cr level post hydration. 2. Renal imaging when last checked did not show obstructive uropathy, pt with chronic ortega it appears. Did exchange ortega on admission based on last written date on the ortega bag (11/30). Chronic abnormal findings in urine, hx of UTIs/bacteriuria. WBC improved with Abx 3. Hyperkalemia recently, none currently Maintain off ACEi or ARB therapy. 4. AG metab acidosis on the last admission, none on admission despite BG > 500. 5. Significant troponin leak, NSTEMI. Troponins were neg on the last admission. Pt has mod to higher risk for RACHEL based on two or more risk factors. Stress test does show reduced EF and some fixed and reversible defects, underwent LHC today with findings of multi-vessel disease, with PCI/BEA of LAD. Pt has been on IVF (at lower rate given low EF, LVEDP not sig elevated) and NAC to mitigate RACHEL risk. Will monitor renal function closely over the next 48h 6. Type II DM with hyperglycemia and recent DKA episode -need to review Insulin and bolus feed regimen with NH on discharge given recurrent admissions. Amrit Howard MD, EMMA
[2023-01-05] MEDS: TAMSULOSIN 0.4 MG SR CAP FT SCH (21:00)
[2023-01-05] MEDS: NA CHLORIDE 0.9% 1,000 ML IV SCH (21:30)
[2023-01-05] MEDS: ATORVASTATIN 20 MG TAB PO SCH (21:45)
[2023-01-05] MEDS: TICAGRELOR 90 MG TABLET PO SCH (21:48)
[2023-01-06] MEDS: INSULIN -REGULAR HUMAN 50 UNIT/0.5 ML ML SQ SCH ×4 (01:00→16:22)
[2023-01-06] MEDS: PIPER TAZO 3.375 GM in NA CHLORIDE 0.9% 100 ML IV SCH ×3 (01:43→16:58)
[2023-01-06 05:33] LABS: Absolute Lymphocytes (CBC) 1.9 K/uL (0.7-4.9); Hematocrit 25.2 % (39.6-49.0); Lymphocytes % 18.6 % (15.3-44.8); MPV 7.5 fL (7.6-11.3); RBC Red Blood Cell Count 3.08 M/uL (4.33-5.43)
[2023-01-06 05:48] LABS: Magnesium 1.9 mg/dL (1.6-2.4); Potassium 3.5 mEq/L (3.5-5.1)
[2023-01-06] MEDS: ACETYLCYST 20% 800 MG/4 ML VIAL PO SCH (05:55)
[2023-01-06] MEDS: LEVOTHYROXINE SOD 0.025 MG TAB PO SCH (06:07)
[2023-01-06 06:30] VITALS: BMI 21.9
--- NOTE | 2023-01-06 07:05 | P.PN ---
Date of Service: 01/06/23 Subjective: doing okay today, sleepy no chest or abdominal pain, stable no new / worsening problems ROS: 10 point ROS as noted above, otherwise negative Physical Exam: GEN: Alert, oriented, NAD HEENT: Normal conjunctiva, sclera anicteric CV: Regular rate and rhythm, no edema Pulm: Nonlabored respirations, +cough, +Trach secretions ABD: Soft, nontender, nondistended Neuro: nonverbal, follows commands vitals reviewed Problem List: NSTEMI, h/o CAD sepsis secondary to aspiration pneumonia +/- catheter associated UTI (POA) chronic hypoxic respiratory failure s/p tracheostomy Chronic CHF, systolic chronic COPD h/o CVA HTN HLD Pressure ulcer, Stage II NSTEMI, h/o CAD h/o CVA Chronic CHF, systolic HTN HLD NSTEMI, elevated trop TTE: (09/2022): normal LVEF (55-60%), Diastolic dysfunction, mild pulm regurgitation Cardiology consulted, on heparin drip Stress test (01/03) positive Small region of suspected reversible ischemia at the junction of the anterior and lateral wall mid to basal segment. Extensive regions of fixed defect involving the lateral and inferior wall, concerning for myocardial infarction. Reduced LVEF: 38% Heart Cath (01/05) Severe mid LAD stenosis 80%, s/p successful PCI. Severe OM1 branch stenosis; however, it is very small vessel (<1mm diameter), will be left for medical management. Continue home aspirin, carvedilol, atorvastatin added Brilinta 01/05 per cardio No ANTONIO-inhibitor/ARB for now given KATLYN nephrology following Sepsis secondary to Aspiration Pneumonia +/- Catheter-Associated Urinary Tract Infection (POA) Chronic Hypoxic Respiratory Failure s/p Tracheostomy Chronic COPD He met sepsis criteria based on tachypnea and leukocytosis. CXR: "no significant change in mild right basilar lung opacities probably pneumonia. Upper lobes appear clear. Heart is normal size. Tracheostomy tube in place." blood cultures: No growth to date. Urine cultures growing 4+ yeast. Procalcitonin is elevated. ID consulted Continue IV Zosyn given high risk for aspiration pneumonia (12/30-01/06) continue fluconazole 14 days (01/02) multiple diarrhea episodes noted on 01/03 cdiff negative improving Hyperglycemia in Type I Diabetes Mellitus not in DKA; labile Continue tube feeding. Home dose Lantus and titrate as needed KDIGO Stage I Acute Kidney Injury on Chronic Kidney Disease Stage IV Creatinine = 3.70 (baseline creatinine ~2.5) on admission Urinalysis = 4+ glucose, 1+ ketones, 75 leukocyte esterase, 11-20 RBCs, 20-50 WBCs, many yeast, 2+ protein Nephrology is following. Renal function is improving and close to baseline. Fluid management per nephrology. Monitor creatinine and urine output; especially after cath Hypothyroidism- Continue home levoythyroxine Depressive Disorder- Continue home escitalopram Benign Prostatic Hyperplasia- resume Tamsulosin. VTE: off hep drip Code: full Dispo: NH, ~2 days Downgrade from ICU 01/06
[2023-01-06] MEDS: BUDESONIDE 0.5 MG/2 ML NEB NEB SCH ×2 (08:28→19:25)
[2023-01-06] MEDS: ASPIRIN EC 81 MG TAB PO SCH (08:37)
[2023-01-06] MEDS: carvediloL 6.25 MG TAB PO SCH ×2 (08:37→21:28)
[2023-01-06] MEDS: LACTOBACILLUS/ACIDOPHILUS TAB PO SCH ×2 (08:37→21:29)
[2023-01-06] MEDS: AMLODIPINE 5 MG TAB PO SCH (08:37)
[2023-01-06] MEDS: ESCITALOPRAM 20 MG TAB PO SCH (08:38)
[2023-01-06] MEDS: NEPRO 1,000 ML BOT FT SCH ×4 (08:38→21:30)
[2023-01-06] MEDS: INSULIN GLARGINE 100 UNIT/ML SQ SCH ×2 (08:38→21:31)
[2023-01-06] MEDS: TICAGRELOR 90 MG TABLET PO SCH ×2 (08:39→21:27)
--- NOTE | 2023-01-06 08:43 | P.PN ---
Date of Service: 01/06/23 Chief Complaint: generalized weakness Subjective: Patient doing well. Denies any new complaints at this time. No acute events reported overnight. Family at bedside. Physical Examination Temp Pulse Resp BP Pulse Ox 97 F 75 21 H 121/65 99 01/06/23 05:00 01/06/23 08:37 01/06/23 06:00 01/06/23 08:37 01/06/23 06:00 General: Alert, In no apparent distress, Oriented x3 HEENT: Atraumatic, Normocephalic, PERRLA Neck: Tracheostomy Respiratory: Diminished (bibasilar), on Trach collar 5LPM Cardiovascular: No edema, Normal pulses Gastrointestinal: Hyperactive bowel sounds, Soft and benign, Non-distended, G- tube Musculoskeletal: No clubbing, No swelling. 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 Integumentary: Pressure ulcer sacrum stage 2 Neurological: Prior CVA, left sided weakness/paralysis Urinary: Ortega catheter (chronic) Studies Laboratory Data - Reviewed Microbiology Data - Reviewed Imagings Data: - Reviewed Medications List Reviewed: Yes Impression and Plan Problem List CAD NSTEMI Hypertension Hyperlipidemia Sepsis Pneumonia Urinary Tract Infection Chronic Hypoxic Respiratory Failure s/p tracheostomy Diabetes Mellitus Type I Hypothyroidism Acute on Chronic Kidney Disease Stage 4 Hx CVA Anemia Severe PCM Sepsis Aspiration Pneumonia - XR Chest 12/30: "No significant change in mild right basilar lung opacities probably pneumonia. Upper lobes appear clear. Heart is normal size. Tracheostomy tube in place." - Blood cultures 12/30: No growth to date - Currently on Zosyn (started 12/30) - Trach dependent. On Trach collar 5LPM Catheter Associated Urinary Tract Infection - UA 12/30: 4+ glucose, 1+ ketones, LE 75, RBC 11-20, WBC 20-50, many yeast - Urine culture 12/30: 4+ yeast not gavino albicans; colony count >100,000 cfu/ml - Chronic ortega catheter, replaced 12/30 - On Fluconazole (started 01/02) Diarrhea - Recently hospitalized on antibiotics, discharged to skilled nursing. - Multiple liquid stools reported. - C.diff negative 01/03 - On probiotic NSTEMI: Cardiology following. s/p left heart cath 01/05. Leukocytosis improving (WBC 11.4 -> 10.2 - on 01/05) Afebrile Recommendations - Fungal UTI: Continue Fluconazole x 14 days (started 01/02). Currently day 5 of 14. - Pneumonia: Continue Zosyn x 7 days (started on 12/30). Currently day 7 of 7. Last dose of Zosyn to be given this PM. Monitor WBC and fever trends while patient is off of antibiotic for 24 hours. - Apply barrier cream to sacrum/buttocks - Blood glucose management - Continue nutritional support - Aspiration precautions ID will follow up and monitor patient closely. Case discussed with Flavio Merrill
[2023-01-06 08:51] LABS: Platelet Estimate ADEQ
[2023-01-06 08:52] LABS: Anisocytosis 1+; Blood Morphology Comment NOTED (NOT SEEN)
[2023-01-06] MEDS: FLUCONAZOLE 200mg IVPB 200 MG/100 ML BAG IV SCH (14:02)
[2023-01-06] MEDS: TAMSULOSIN 0.4 MG SR CAP FT SCH (21:28)
[2023-01-06] MEDS: ATORVASTATIN 20 MG TAB PO SCH (21:28)
[2023-01-07] MEDS: INSULIN -REGULAR HUMAN 50 UNIT/0.5 ML ML SQ SCH ×4 (00:26→18:22)
[2023-01-07 03:41] LABS: Absolute Lymphocytes (CBC) 1.9 K/uL (0.7-4.9); Hematocrit 24.1 % (39.6-49.0); Lymphocytes % 21.9 % (15.3-44.8); MCV 82.2 fL (80-100); MPV 7.9 fL (7.6-11.3); RBC Red Blood Cell Count 2.94 M/uL (4.33-5.43)
[2023-01-07 04:01] LABS: Potassium 3.5 mEq/L (3.5-5.1)
[2023-01-07] MEDS: LEVOTHYROXINE SOD 0.025 MG TAB PO SCH (06:30)
--- NOTE | 2023-01-07 07:04 | P.PN ---
Date of Service: 01/07/23 Subjective: doing okay, stable labs improving trach secretions worsening (nodded yes when asked if it was "a lot worse today"); increased amount, +thicker ROS: 10 point ROS as noted above, otherwise negative Physical Exam: GEN: Alert, oriented, NAD HEENT: Normal conjunctiva, sclera anicteric CV: Regular rate and rhythm, no edema Pulm: Nonlabored respirations, +cough, +Trach secretions ABD: Soft, nontender, nondistended Neuro: nonverbal, follows commands vitals reviewed Problem List: NSTEMI, h/o CAD sepsis secondary to aspiration pneumonia +/- catheter associated UTI (POA) chronic hypoxic respiratory failure s/p tracheostomy Chronic CHF, systolic chronic COPD h/o CVA HTN HLD Pressure ulcer, Stage II NSTEMI, h/o CAD h/o CVA Chronic CHF, systolic HTN HLD NSTEMI, elevated trop TTE: (09/2022): normal LVEF (55-60%), Diastolic dysfunction, mild pulm regurgitation Cardiology consulted, on heparin drip Stress test (01/03) positive Small region of suspected reversible ischemia at the junction of the anterior and lateral wall mid to basal segment. Extensive regions of fixed defect involving the lateral and inferior wall, concerning for myocardial infarction. Reduced LVEF: 38% Heart Cath (01/05) Severe mid LAD stenosis 80%, s/p successful PCI. Severe OM1 branch stenosis; however, it is very small vessel (<1mm diameter), will be left for medical management. Continue home aspirin, carvedilol, atorvastatin added Brilinta 01/05 per cardio No ANTONIO-inhibitor/ARB for now given KATLYN nephrology following Sepsis secondary to Aspiration Pneumonia +/- Catheter-Associated Urinary Tract Infection (POA) Chronic Hypoxic Respiratory Failure s/p Tracheostomy Chronic COPD He met sepsis criteria based on tachypnea and leukocytosis. CXR: "no significant change in mild right basilar lung opacities probably pneumonia. Upper lobes appear clear. Heart is normal size. Tracheostomy tube in place." CXR (01/07): pending blood cultures (12/30): no growth Urine culture(12/30): 4+ yeast not gavino, 100,000+ CFU/ML Procalcitonin is elevated. ID consulted completed 7 day course of IV Zosyn (12/30-01/06) continue fluconazole 14 days (01/02-01/16) 2 weeks total (swapped from IV to PO 01/07) afebrile, no leukocytosis multiple diarrhea episodes noted on 01/03 cdiff negative improving Hyperglycemia in Type I Diabetes Mellitus not in DKA; labile Continue tube feeding. Home dose Lantus and titrate as needed KDIGO Stage I Acute Kidney Injury on Chronic Kidney Disease Stage IV Creatinine = 3.70 (baseline creatinine ~2.5) on admission Urinalysis = 4+ glucose, 1+ ketones, 75 leukocyte esterase, 11-20 RBCs, 20-50 WBCs, many yeast, 2+ protein Nephrology is following. Renal function is improving and close to baseline. Fluid management per nephrology Monitor creatinine and urine output; especially after cath Hypothyroidism- Continue home levoythyroxine Depressive Disorder- Continue home escitalopram Benign Prostatic Hyperplasia- resume Tamsulosin. VTE: off hep drip Code: full Dispo: NH, ~2 days
[2023-01-07] MEDS: BUDESONIDE 0.5 MG/2 ML NEB NEB SCH ×2 (07:50→19:58)
[2023-01-07] MEDS ORDERED: POTASSIUM CL SA 10 MEQ TAB PO ONE (09:00)
[2023-01-07] MEDS: LACTOBACILLUS/ACIDOPHILUS TAB PO SCH ×2 (09:00→21:41)
[2023-01-07] MEDS ORDERED: POTASSIUM 25 MEQ EFFERV TAB PO ONE (09:00)
[2023-01-07] MEDS: ASPIRIN EC 81 MG TAB PO SCH (09:46)
[2023-01-07] MEDS: TICAGRELOR 90 MG TABLET PO SCH ×2 (09:46→21:40)
[2023-01-07] MEDS: ESCITALOPRAM 20 MG TAB PO SCH (09:47)
[2023-01-07] MEDS: carvediloL 6.25 MG TAB PO SCH ×2 (09:47→21:39)
[2023-01-07] MEDS: AMLODIPINE 5 MG TAB PO SCH (09:47)
[2023-01-07] MEDS: INSULIN GLARGINE 100 UNIT/ML SQ SCH ×2 (09:48→21:42)
[2023-01-07] MEDS: NEPRO 1,000 ML BOT FT SCH ×4 (09:48→21:41)
--- NOTE | 2023-01-07 10:47 | PN ---
Date of Progress Note: 01/05/2023 Mr. Carrillo eventually underwent a heart catheterization. He had an angioplasty and stent of his prox imal LAD. He was found to have a 99% small obtuse marginal. He has done well postprocedure. No arr hythmias. Catheterization entry site is intact, no hematoma. We will sign off his case. Continue p resent regimen. Follow up in the office in 2 weeks. Should eventually be on aspirin, statin, Plavix or Brilinta, and a low-dose beta-blockers. ADELSO/OJHNSON Voice ID: [id number] Report ID: [id number]
--- NOTE | 2023-01-07 12:25 | RAD REPORT ---
EXAM DESCRIPTION: RAD - Chest Single View - 01/07/2023 12:19 pm CLINICAL HISTORY: increased thick secretions, f/u opacities COMPARISON: Chest Single View dated 12/30/2022; Chest Single View dated 12/27/2022; Chest Single View d ated 12/25/2022; Chest Single View dated 12/22/2022 FINDINGS: Lines: Tracheostomy. Lungs: Similar slightly worsened right basilar airspace disease. Pleural: No significant pleural effusions or pneumothorax. Cardiac: The heart size is within normal limits. Mediastinum: Within normal limits. Bones: No acute fractures. Other: None IMPRESSION: Similar slightly worsened airspace disease at the right lung base which could reflect pn eumonia, possibly as a result of aspiration.
[2023-01-07] MEDS: FLUCONAZOLE 100 MG TAB PO SCH (12:51)
--- NOTE | 2023-01-07 15:28 | P.PN ---
Nephrology note (S) Pt well known to me from the last admission and pt unfortunately re-admitted within 30 days of last admission, pls see my consult note from 12/16/22 for full details. Pt has come back in from ID today with hyperglycemia, leukocytosis, significant troponin leak although seen in the ICU, he denies CP, dyspnea, abd pain or N/V. Urine is present in ortega and does not appear overtly turbid. 01/02: Seen after the weekend, pt's condition stable, remains in the ICU, not on any drips. Hemodynamically stable, denies any CP or dyspnea 01/03: Stress test done this AM, report noted, pt seen getting some bolus feeds in the ICU, BP a bit higher now. Reports of loose stool, plan for C diff testing noted 01/04: Cardiology note reviewed and it appears plan now is for [facility] tmrw in light of abnormal stress test. Pt seen otherwise resting comfortably, no acute health issues 01/05: Pt seen s/p [facility], findings reviewed, UOP remains good, stable vitals post procedure 01/06 Pt seen in the ICU remaining in stable condition 01/07 Pt now out of the ICU, resting comfortably (O) Vitals reviewed in the EMR General: In no apparent distress, Cachectic HEENT: Atraumatic, Normocephalic Neck: Other (trach with trach collar) Respiratory: Other (b/l air entry, no wheezes or rhonchi anteriorly, mildly diminished at bases) Cardiovascular: Regular rate/rhythm, Diastolic murmur Gastrointestinal: Soft and benign, Non-distended, Other (PEG tube present) Musculoskeletal: No swelling, Other (Muscle mass loss) Integumentary: Other (Did not examine for decubitus) Neurological: Resting so did not awaken Laboratory Data (last 24 hrs) Reviewed admission labs and imaging reports. Conclusions/Impression: A/P) 1. Stage III ARF per JEFFREY definition last month with presenting Cr level > 4 mg/dl last week on underlying CKD NOS, but suspected advanced (Stage IV most likely) given prior/recent labs, pt with other prior KATLYN episodes, however with his diminished muscle mass the elevated Cr levels may be even more notable. Recurrent KATLYN in the setting of likely intravascular volume depletion, hemodynamic factors, other. Renal function typically improves to baseline range, mid to upper 2s Cr level post hydration. 2. Renal imaging when last checked did not show obstructive uropathy, pt with chronic ortega it appears. Did exchange ortega on admission based on last written date on the ortega bag (11/30). Chronic abnormal findings in urine, hx of UTIs/bacteriuria. WBC improved with Abx 3. Hyperkalemia recently, none currently Maintain off ACEi or ARB therapy. 4. AG metab acidosis on the last admission, none on admission despite BG > 500. 5. Significant troponin leak, NSTEMI. Troponins were neg on the last admission. Pt has mod to higher risk for RACHEL based on two or more risk factors. Stress test does show reduced EF and some fixed and reversible defects, underwent LHC last week with findings of multi-vessel disease, with PCI/BEA of LAD. No evidence of RACHEL with contrast exposure. IVF stopped early on, LVEDP was not sig elevated 6. Type II DM with hyperglycemia and recent DKA episode -need to review Insulin and bolus feed regimen with NH on discharge given recurrent admissions. Amrit Howard MD, EMMA
[2023-01-07] MEDS: TAMSULOSIN 0.4 MG SR CAP FT SCH (21:39)
[2023-01-07] MEDS: ATORVASTATIN 20 MG TAB PO SCH (21:39)
[2023-01-08] MEDS: LEVOTHYROXINE SOD 0.025 MG TAB PO SCH (05:54)
[2023-01-08] MEDS: INSULIN -REGULAR HUMAN 50 UNIT/0.5 ML ML SQ SCH ×4 (06:00→18:21)
--- NOTE | 2023-01-08 07:01 | P.PN ---
Date of Service: 01/08/23 Subjective: nodded yes when asked if secretions were worse today; thicker he does not feel like he is aspirating 2 loose BM yesterday otherwise no new / worsening problems stable, no leukocytosis, +afebrile ROS: 10 point ROS as noted above, otherwise negative Physical Exam: GEN: Alert, oriented, NAD HEENT: Normal conjunctiva, sclera anicteric CV: Regular rate and rhythm, no edema Pulm: Nonlabored respirations, +cough, +minimal trach secretions (just s uctioned) ABD: Soft, nontender, nondistended Neuro: nonverbal, follows commands vitals reviewed Problem List: NSTEMI, h/o CAD; now s/p PCI sepsis secondary to aspiration pneumonia +/- catheter associated UTI (POA) chronic hypoxic respiratory failure s/p tracheostomy Chronic CHF, systolic chronic COPD h/o CVA HTN HLD Pressure ulcer, Stage II NSTEMI, h/o CAD; now s/p PCI h/o CVA Chronic CHF, systolic HTN HLD NSTEMI, +stress test, Cath (01/05): Severe mid LAD stenosis 80%, s/p successful PCI. Severe OM1 branch stenosis; however, it is very small vessel (<1mm diameter), will be left for medical management. TTE: (09/2022): normal LVEF (55-60%), Diastolic dysfunction, mild pulm regurgitation Continue home aspirin, carvedilol, atorvastatin added Brilinta 01/05 after cath, per cardio No ANTONIO-inhibitor/ARB for now given KATLYN nephrology following Sepsis secondary to Aspiration Pneumonia +/- Catheter-Associated Urinary Tract Infection (POA) Chronic Hypoxic Respiratory Failure s/p Tracheostomy Chronic COPD He met sepsis criteria based on tachypnea and leukocytosis. CXR: "no significant change in mild right basilar lung opacities probably pneumonia. Upper lobes appear clear. Heart is normal size. Tracheostomy tube in place." CXR (01/07): Similar slightly worsened airspace disease at the right lung base which could reflect pneumonia, possibly as a result of aspiration blood cultures (12/30): no growth Urine culture(12/30): 4+ yeast not gavino, 100,000+ CFU/ML Procalcitonin is elevated. ID consulted completed 7 day course of IV Zosyn (12/30-01/06) continue fluconazole 14 days (01/02-01/16) 2 weeks total (swapped from IV to PO 01/07) afebrile, no leukocytosis multiple diarrhea episodes noted on 01/03 cdiff negative improving increased secretions reported 01/07, CXR noted increased R lung base opacity remains afebrile, denies aspiration feeling restart CXR 01/09 Hyperglycemia in Type I Diabetes Mellitus labile glc levels Continue tube feeding. Home dose Lantus decreased 01/08, titrate as needed KDIGO Stage I Acute Kidney Injury on Chronic Kidney Disease Stage IV Cr = 3.70 (baseline ~2.5) on admission UA = 4+ glc, 1+ ketones, 75 leuk est, 11-20 RBCs, 20-50 WBCs, many yeast, 2+ protein Nephrology is following. Renal function is improving and close to baseline. Fluid management per nephrology Monitor creatinine and urine output; especially after cath Hypothyroidism- Continue home levoythyroxine Depressive Disorder- Continue home escitalopram Benign Prostatic Hyperplasia- resumed Tamsulosin VTE: off hep drip Code: full Dispo: NH, ~2 days
[2023-01-08] MEDS: BUDESONIDE 0.5 MG/2 ML NEB NEB SCH ×2 (07:45→19:50)
[2023-01-08] MEDS: LACTOBACILLUS/ACIDOPHILUS TAB PO SCH ×2 (09:00→20:43)
[2023-01-08] MEDS: INSULIN GLARGINE 100 UNIT/ML SQ SCH ×2 (09:09→20:44)
[2023-01-08] MEDS: ESCITALOPRAM 20 MG TAB PO SCH (09:09)
[2023-01-08] MEDS: TICAGRELOR 90 MG TABLET PO SCH ×2 (09:09→20:47)
[2023-01-08] MEDS: ASPIRIN EC 81 MG TAB PO SCH (09:10)
[2023-01-08] MEDS: AMLODIPINE 5 MG TAB PO SCH (09:10)
[2023-01-08] MEDS: carvediloL 6.25 MG TAB PO SCH ×2 (09:10→20:42)
[2023-01-08] MEDS: NEPRO 1,000 ML BOT FT SCH ×4 (09:11→20:44)
[2023-01-08] MEDS: FLUCONAZOLE 100 MG TAB PO SCH (13:32)
[2023-01-08] MEDS: TAMSULOSIN 0.4 MG SR CAP FT SCH (20:42)
[2023-01-08] MEDS: ATORVASTATIN 20 MG TAB PO SCH (20:42)
[2023-01-09] MEDS: INSULIN -REGULAR HUMAN 50 UNIT/0.5 ML ML SQ SCH ×4 (00:09→17:29)
[2023-01-09 03:38] LABS: Absolute Lymphocytes (CBC) 2.2 K/uL (0.7-4.9); Hematocrit 24.7 % (39.6-49.0); Lymphocytes % 22.5 % (15.3-44.8); MCV 82.6 fL (80-100); MPV 7.8 fL (7.6-11.3); RBC Red Blood Cell Count 2.99 M/uL (4.33-5.43)
[2023-01-09 03:57] LABS: C-Reactive Protein 33.1 mg/L (<3.00); Magnesium 2.1 mg/dL (1.6-2.4); Potassium 3.6 mEq/L (3.5-5.1)
[2023-01-09] MEDS: LEVOTHYROXINE SOD 0.025 MG TAB PO SCH (05:42)
--- NOTE | 2023-01-09 07:00 | P.PN ---
Date of Service: 01/09/23 Subjective: doing okay nodded yes when asked if trach secretions the same; remains thick, hard to cough up coughing more today afebrile, no leukocytosis ROS: 10 point ROS as noted above, otherwise negative Physical Exam: GEN: Alert, oriented, NAD HEENT: Normal conjunctiva, sclera anicteric CV: Regular rate and rhythm, no edema Pulm: Nonlabored respirations, +cough, +trach secretions ABD: Soft, nontender, nondistended Neuro: nonverbal, follows commands vitals reviewed Problem List: NSTEMI, h/o CAD; now s/p PCI sepsis secondary to aspiration pneumonia +/- catheter associated UTI (POA) chronic hypoxic respiratory failure s/p tracheostomy Chronic CHF, systolic chronic COPD h/o CVA HTN HLD Pressure ulcer, Stage II NSTEMI, h/o CAD; now s/p PCI h/o CVA Chronic CHF, systolic HTN HLD NSTEMI, +stress test, Cath (01/05): Severe mid LAD stenosis 80%, s/p successful PCI. Severe OM1 branch stenosis; however, it is very small vessel (<1mm diameter), will be left for medical management. TTE: (09/2022): normal LVEF (55-60%), Diastolic dysfunction, mild pulm regurgitation Continue home aspirin, carvedilol, atorvastatin added Brilinta 01/05 after cath, per cardio No ANTONIO-inhibitor/ARB for now given KATLYN nephrology following Sepsis secondary to Aspiration Pneumonia +/- Catheter-Associated Urinary Tract Infection (POA) Chronic Hypoxic Respiratory Failure s/p Tracheostomy Chronic COPD He met sepsis criteria based on tachypnea and leukocytosis. CXR: "no significant change in mild right basilar lung opacities probably pneumonia. Upper lobes appear clear. Heart is normal size. Tracheostomy tube in place." CXR (01/07): Similar slightly worsened airspace disease at the right lung base which could reflect pneumonia, possibly as a result of aspiration CXR (01/09): Mild increase in right basilar lung opacities CT chest (01/09): ordered blood cultures (12/30): no growth Urine culture(12/30): 4+ yeast not gavino, 100,000+ CFU/ML Procalcitonin is elevated. ID consulted completed 7 day course of IV Zosyn (12/30-01/06) continue fluconazole 14 days (01/02-01/16) 2 weeks total (swapped from IV to PO 01/07) multiple diarrhea episodes noted on 01/03 cdiff negative improving stool studies 01/08: pending increased secretions reported 01/07, CXR noted increased R lung base opacity remains afebrile, no leukocytosis, denies aspiration feeling check CT chest for further clarification Pulmonology consulted due to risk/concern of aspiration pneumonia repeat CRP Hyperglycemia in Type I Diabetes Mellitus labile glc levels Continue tube feeding. Home dose Lantus decreased 01/08, titrate as needed KDIGO Stage I Acute Kidney Injury on Chronic Kidney Disease Stage IV Cr = 3.70 (baseline ~2.5) on admission UA = 4+ glc, 1+ ketones, 75 leuk est, 11-20 RBCs, 20-50 WBCs, many yeast, 2+ protein Nephrology is following. Renal function is improving and close to baseline. Fluid management per nephrology Monitor creatinine and urine output; especially after cath Hypothyroidism- Continue home levoythyroxine Depressive Disorder- Continue home escitalopram Code: full Dispo: NH, ~2-3 days
[2023-01-09] MEDS: LACTOBACILLUS/ACIDOPHILUS TAB PO SCH ×2 (07:43→21:11)
[2023-01-09] MEDS: carvediloL 6.25 MG TAB PO SCH ×2 (07:43→21:10)
[2023-01-09] MEDS: TICAGRELOR 90 MG TABLET PO SCH ×2 (07:43→21:10)
[2023-01-09] MEDS: INSULIN GLARGINE 100 UNIT/ML SQ SCH ×2 (07:43→21:11)
[2023-01-09] MEDS: NEPRO 1,000 ML BOT FT SCH ×4 (07:43→21:00)
[2023-01-09] MEDS: ESCITALOPRAM 20 MG TAB PO SCH (07:43)
[2023-01-09] MEDS: ASPIRIN EC 81 MG TAB PO SCH (07:43)
[2023-01-09] MEDS: AMLODIPINE 5 MG TAB PO SCH (07:43)
[2023-01-09] MEDS: BUDESONIDE 0.5 MG/2 ML NEB NEB SCH ×2 (08:00→19:20)
--- NOTE | 2023-01-09 08:32 | RAD REPORT ---
EXAM DESCRIPTION: RAD - Chest Single View - 01/09/2023 6:02 am CLINICAL HISTORY: f/u R opacity, increased secretions Chest pain. COMPARISON: Chest Single View dated 01/07/2023; Chest Single View dated 12/30/2022; Chest Single View d ated 12/27/2022; Chest Single View dated 12/25/2022 FINDINGS: Portable technique limits examination quality. Moderate opacity in the right lung base has mildly progressed since 01/07/2023. Left lung is grossly clear. The heart is normal in size. Tracheostomy tube is unchanged in position. IMPRESSION: Mild increase in right basilar lung opacities since comparative study.
--- NOTE | 2023-01-09 08:44 | P.PN ---
Date of Service: 01/09/23 Chief Complaint: generalized weakness Subjective: Patient resting in bed comfortably. Reports of increased secretions over the weekend. Denies any new complaints at this time. Physical Examination Temp Pulse Resp BP Pulse Ox 97.0 F 80 17 173/77 H 97 01/09/23 04:00 01/09/23 04:00 01/09/23 04:00 01/09/23 04:00 01/09/23 04:00 General: Alert, In no apparent distress, Oriented x3 HEENT: Atraumatic, Normocephalic, PERRLA Neck: Tracheostomy Respiratory: Diminished (bibasilar), on Trach collar 5LPM Cardiovascular: No edema, Normal pulses Gastrointestinal: Hyperactive bowel sounds, Soft and benign, Non-distended, G- tube Musculoskeletal: No clubbing, No swelling. 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 Integumentary: Pressure ulcer sacrum stage 2 Neurological: Prior CVA, left sided weakness/paralysis Urinary: Ortega catheter (chronic) Studies Laboratory Data - Reviewed Microbiology Data - Reviewed Imagings Data: - Reviewed Medications List Reviewed: Yes Impression and Plan Problem List CAD NSTEMI Hypertension Hyperlipidemia Sepsis Pneumonia Urinary Tract Infection Chronic Hypoxic Respiratory Failure s/p tracheostomy Diabetes Mellitus Type I Hypothyroidism Acute on Chronic Kidney Disease Stage 4 Hx CVA Anemia Severe PCM Sepsis Aspiration Pneumonia - XR Chest 12/30: "No significant change in mild right basilar lung opacities probably pneumonia. Upper lobes appear clear. Heart is normal size. Tracheostomy tube in place." - Blood cultures 12/30: No growth to date - Currently on Zosyn (started 12/30) - Trach dependent. On Trach collar 5LPM - XR Chest 01/09: "Mild increase in right basilar lung opacities since comparative study.' Catheter Associated Urinary Tract Infection - UA 12/30: 4+ glucose, 1+ ketones, LE 75, RBC 11-20, WBC 20-50, many yeast - Urine culture 12/30: 4+ yeast not gavino albicans; colony count >100,000 cfu/ml - Chronic ortega catheter, replaced 12/30 - On Fluconazole (started 01/02) Diarrhea - Recently hospitalized on antibiotics, discharged to half-way. - C.diff negative 01/03 - On probiotic - diarrhea improving NSTEMI: Cardiology following. s/p left heart cath 01/05. Leukocytosis improving (WBC 9.8) Afebrile Recommendations - Fungal UTI: Continue Fluconazole x 14 days (started 01/02). Currently day 8 of 14. - Pneumonia: Completed 7 days of Zosyn. - XR chest with mild worsening in right basilar lung opacity; obtain chest CT - Apply barrier cream to sacrum/buttocks - Blood glucose management - Aspiration precautions ID will follow up and monitor patient closely. Case discussed with Flavio Merrill
--- NOTE | 2023-01-09 11:51 | RAD REPORT ---
EXAM DESCRIPTION: CT - Thorax Wo Con CLINICAL HISTORY: Chest pain eval R lung opactiy COMPARISON: Chest Abd Pelvis Wo Con dated 10/21/2022 FINDINGS: The tracheostomy tube tip is above the gab at the level of the superior aortic arch. Th ere is moderate airspace opacification in both posterior lung bases, greater on the right likely infi ltrate/bibasilar pneumonia. No significant pleural fluid. No pericardial fluid No pneumothorax. No axillary, mediastinal or hilar adenopathy. No fracture or aggressive marrow lesion. No gross upper abdominal finding. All CT scans are performed using dose optimization technique as appropriate and may include automated exposure control or mA/KV adjustment according to patient size. IMPRESSION: Moderate posterior bibasilar lung opacities, greater on the right likely represent bilat eral pneumonia.
[2023-01-09] MEDS: FLUCONAZOLE 100 MG TAB PO SCH (12:00)
[2023-01-09] MEDS: TAMSULOSIN 0.4 MG SR CAP FT SCH (21:10)
[2023-01-09] MEDS: ATORVASTATIN 20 MG TAB PO SCH (21:11)
[2023-01-10] MEDS: INSULIN -REGULAR HUMAN 50 UNIT/0.5 ML ML SQ SCH ×5 (00:31→23:45)
[2023-01-10 03:36] LABS: Hematocrit 25.6 % (39.6-49.0); Lymphocytes % 21.9 % (15.3-44.8); MCV 82.6 fL (80-100); MPV 7.9 fL (7.6-11.3)
[2023-01-10 04:14] LABS: C-Reactive Protein 29.8 mg/L (<3.00); Potassium 3.4 mEq/L (3.5-5.1)
[2023-01-10] MEDS: LEVOTHYROXINE SOD 0.025 MG TAB PO SCH (06:01)
[2023-01-10] MEDS: BUDESONIDE 0.5 MG/2 ML NEB NEB SCH ×2 (08:25→19:25)
--- NOTE | 2023-01-10 08:33 | P.PN ---
Date of Service: 01/10/23 Chief Complaint: generalized weakness Subjective: Improving. No new changes. No acute events reported overnight. Denies any new complaints. Physical Examination Temp Pulse Resp BP Pulse Ox 97.4 F 76 17 156/74 H 98 01/10/23 04:00 01/10/23 04:00 01/10/23 04:00 01/10/23 04:00 01/10/23 04:00 General: Alert, In no apparent distress, Oriented x3 HEENT: Atraumatic, Normocephalic, PERRLA Neck: Tracheostomy Respiratory: Diminished breath sounds. Bibasilar crackles. On Trach collar 5LPM Cardiovascular: No edema, Normal pulses Gastrointestinal: Normal bowel sounds. Soft and benign, Non-distended. G-tube Musculoskeletal: No clubbing, No swelling. 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 Integumentary: Pressure ulcer sacrum stage 2 Neurological: Prior CVA, left sided weakness/paralysis Urinary: Ortega catheter (chronic) Studies Laboratory Data - Reviewed Microbiology Data - Reviewed Imagings Data: - Reviewed Medications List Reviewed: Yes Impression and Plan Problem List CAD NSTEMI Hypertension Hyperlipidemia Sepsis Pneumonia Urinary Tract Infection Chronic Hypoxic Respiratory Failure s/p tracheostomy Diabetes Mellitus Type I Hypothyroidism Acute on Chronic Kidney Disease Stage 4 Hx CVA Anemia Severe PCM Sepsis Aspiration Pneumonia - Blood cultures 12/30: No growth to date - XR Chest 12/30: "No significant change in mild right basilar lung opacities probably pneumonia. Upper lobes appear clear. Heart is normal size. Tracheostomy tube in place." - Trach dependent. On Trach collar 5LPM. SpO2 98% - XR Chest 01/09: "Mild increase in right basilar lung opacities since comparative study.' - CT Chest 01/09: "Moderate posterior bibasilar lung opacities, greater on the right likely represent bilateral pneumonia" - Patient completed 7 day course of Zosyn 12/30-01/05 - sputum culture pending Catheter Associated Urinary Tract Infection - UA 12/30: 4+ glucose, 1+ ketones, LE 75, RBC 11-20, WBC 20-50, many yeast - Urine culture 12/30: 4+ yeast not gavino albicans; colony count >100,000 cfu/ml - Chronic ortega catheter, replaced 12/30 - On Fluconazole (started 01/02) Diarrhea - Recently hospitalized on antibiotics, discharged to intermediate. - C.diff negative 01/03 - On probiotic NSTEMI: Cardiology following. s/p left heart cath 01/05. Leukocytosis resolved (WBC 9) Afebrile Recommendations - Fungal UTI: Continue Fluconazole x 14 days (started 01/02). Currently day 9 of 14. - Pneumonia: Completed 7 days of Zosyn 12/30-01/05 - Apply barrier cream to sacrum/buttocks - Aspiration precautions ID will follow up and monitor patient closely. Case discussed with Flavio Merrill
[2023-01-10] MEDS: LACTOBACILLUS/ACIDOPHILUS TAB PO SCH ×2 (09:56→20:21)
[2023-01-10] MEDS: ESCITALOPRAM 20 MG TAB PO SCH (09:56)
[2023-01-10] MEDS: AMLODIPINE 5 MG TAB PO SCH (09:57)
[2023-01-10] MEDS: TICAGRELOR 90 MG TABLET PO SCH ×2 (09:57→20:20)
[2023-01-10] MEDS: ASPIRIN EC 81 MG TAB PO SCH (09:57)
[2023-01-10] MEDS: carvediloL 6.25 MG TAB PO SCH ×2 (09:57→20:20)
[2023-01-10] MEDS: INSULIN GLARGINE 100 UNIT/ML SQ SCH ×2 (09:58→20:21)
[2023-01-10] MEDS: NEPRO 1,000 ML BOT FT SCH ×4 (10:08→20:21)
[2023-01-10] MEDS: FLUCONAZOLE 100 MG TAB PO SCH (13:02)
--- NOTE | 2023-01-10 15:21 | P.PN ---
Subjective Date of Service: 01/10/23 Chief Complaint: NSTEMI No major changes from yesterday. Patient appears comfortable on oxygen by trach-collar. He has been afebrile. Physical Examination - Vital Signs Temperature: 97.2 F Blood Pressure: 154/70 Pulse: 73 Respirations: 14 Pulse Ox (%): 98 Assessment And Plan - Plan Physical Exam General: In no apparent distress Neck: Tracheostomy collar Respiratory: Bilateral upper airway transmitted sounds, Normal air movement Cardiovascular: No edema, Normal S1 S2 Gastrointestinal: Normal bowel sounds, Soft and benign, Non-distended, No tender ness Musculoskeletal: No swelling Integumentary: No rashes, No cyanosis Neurological: Normal strength at 5/5 x4 extr Plan: Coronary Artery Disease with Non-ST Segment Elevation Myocardial Infarction/History of Cerebrovascular Accident/Hypertension/Hyperlipidemia - EKG: without STEMI criteria. - Trend troponin: first was 3116.3, trended down to 2652 - Transthoracic echocardiogram (September 2022) = "1. NORMAL LEFT VENTRICULAR EJECTION FRACTION 55-60%. 2. DIASTOLIC DYSFUNCTION. 3. MILD PULMONARY REGURGITATION." - Chest x-ray = "no significant change in mild right basilar lung opacities probably pneumonia. Upper lobes appear clear. Heart is normal size. Tracheostomy tube in place." - Cardiology consulted and Dr. Domingo spoke with Dr. Elliott. -Patient treated with heparin drip -Status post cardiac catheterization: Severe mid LAD stenosis, status post successful PCI. Severe OM1 branch stenosis; however, it is very small vessel, will be left for medical management. - Continue aspirin, Brilinta carvedilol, atorvastatin -No ANTONIO-inhibitor/ARB given KATLYN Sepsis secondary to Aspiration Pneumonia +/- Catheter-Associated Urinary Tract Infection (POA)/Chronic Hypoxic Respiratory Failure s/p Tracheostomy /Chronic Obstructive Pulmonary Disease He met sepsis criteria based on tachypnea and leukocytosis. Patient had severe leukocytosis Chest x-ray = "no significant change in mild right basilar lung opacities probably pneumonia. Upper lobes appear clear. Heart is normal size. Tracheostomy tube in place." blood cultures: No growth to date. Urine cultures growing Jeanne. Procalcitonin is elevated. Patient completed IV Zosyn for aspiration pneumonia. Also placed on Diflucan for candiduria Leukocytosis resolved. Infectious diseases following. Hyperglycemia in Type I Diabetes Mellitus -No DKA. -Blood sugar levels improved today Continue tube feeding. Titrate Lantus insulin Continue to monitor blood sugar Correction scale insulin KDIGO Stage I Acute Kidney Injury on Chronic Kidney Disease Stage IV - Creatinine = 3.70 (baseline creatinine ~2.5) on admit - Urinalysis = 4+ glucose, 1+ ketones, 75 leukocyte esterase, 11-20 RBCs, 20-50 WBCs, many yeast, 2+ protein - Nephrology is following. -Renal function is improved to baseline. - Fluid management per nephrology. -IV fluid discontinued. Hypothyroidism - Continue home levoythyroxine Depressive Disorder - Continue home escitalopram Benign Prostatic Hyperplasia -Continue tamsulosin. Clinically stable for discharge pending SNF placement.
--- NOTE | 2023-01-10 15:27 | P.PN ---
Nephrology note (S) Pt well known to me from the last admission and pt unfortunately re-admitted within 30 days of last admission, pls see my consult note from 12/16/22 for full details. Pt has come back in from [place] today with hyperglycemia, leukocytosis, significant troponin leak although seen in the ICU, he denies CP, dyspnea, abd pain or N/V. Urine is present in ortega and does not appear overtly turbid. 01/02: Seen after the weekend, pt's condition stable, remains in the ICU, not on any drips. Hemodynamically stable, denies any CP or dyspnea 01/03: Stress test done this AM, report noted, pt seen getting some bolus feeds in the ICU, BP a bit higher now. Reports of loose stool, plan for C diff testing noted 01/04: Cardiology note reviewed and it appears plan now is for [facility] tmrw in light of abnormal stress test. Pt seen otherwise resting comfortably, no acute health issues 01/05: Pt seen s/p [facility], findings reviewed, UOP remains good, stable vitals post procedure 01/06 Pt seen in the ICU remaining in stable condition 01/07 Pt now out of the ICU, resting comfortably 01/10: Pt seen resting comfortably, denies CP or dyspnea (O) Vitals reviewed in the EMR General: In no apparent distress, Cachectic HEENT: Atraumatic, Normocephalic Neck: Other (trach with trach collar) Respiratory: Other (b/l air entry, no wheezes or rhonchi anteriorly, mildly diminished at bases) Cardiovascular: Regular rate/rhythm, Diastolic murmur Gastrointestinal: Soft and benign, Non-distended, Other (PEG tube present) Musculoskeletal: No swelling, Other (Muscle mass loss) Integumentary: Other (Did not examine for decubitus) Neurological: Resting so did not awaken Laboratory Data (last 24 hrs) Reviewed admission labs and imaging reports. Conclusions/Impression: A/P) 1. Stage III ARF per JEFFREY definition last month with presenting Cr level > 4 mg/dl on underlying CKD NOS, but suspected advanced (Stage IV most likely) given prior/recent labs, pt with other prior KATLYN episodes, however with his diminished muscle mass the elevated Cr levels may be even more notable. Recurrent KATLYN in the setting of likely intravascular volume depletion, hemo dynamic factors, other. Renal function typically improves to baseline range, mid to upper 2s Cr level post hydration. 2. Renal imaging when last checked did not show obstructive uropathy, pt with chronic ortega it appears. Did exchange ortega on admission based on last written date on the ortega bag (11/30). Chronic abnormal findings in urine, hx of UTIs/bacteriuria. WBC improved with Abx 3. Hyperkalemia recently, none currently Maintain off ACEi or ARB therapy. 4. AG metab acidosis on the last admission, none on admission despite BG > 500. 5. Significant troponin leak, NSTEMI. Troponins were neg on the last admission. Pt had mod to higher risk for RACHEL based on two or more risk factors. Stress test does show reduced EF and some fixed and reversible defects, underwent LHC last week with findings of multi-vessel disease, with PCI/BEA of LAD. No evidence of RACHEL with contrast exposure. IVF stopped early on, LVEDP was not sig elevated 6. Type II DM with hyperglycemia and recent DKA episode -need to review Insulin and bolus feed regimen with NH on discharge given recurrent admissions. Amrit Howard MD, EMMA
[2023-01-10] MEDS: ATORVASTATIN 20 MG TAB PO SCH (20:20)
[2023-01-10] MEDS: TAMSULOSIN 0.4 MG SR CAP FT SCH (20:21)
[2023-01-11] MEDS: INSULIN -REGULAR HUMAN 50 UNIT/0.5 ML ML SQ SCH ×3 (06:00→18:17)
[2023-01-11] MEDS: LEVOTHYROXINE SOD 0.025 MG TAB PO SCH (06:27)
[2023-01-11] MEDS: BUDESONIDE 0.5 MG/2 ML NEB NEB SCH ×2 (08:15→20:15)
[2023-01-11] MEDS: LACTOBACILLUS/ACIDOPHILUS TAB PO SCH ×2 (09:00→21:49)
--- NOTE | 2023-01-11 09:07 | P.PN ---
Date of Service: 01/11/23 Chief Complaint: generalized weakness Subjective: Improving. No new changes. Patient in bed, NAD, breathing comfortably on trach collar. No acute events reported overnight. Denies any new complaints. Afebrile Pending authorization to return to [place] Physical Examination Temp Pulse Resp BP Pulse Ox 97.5 F 75 18 119/60 98 01/11/23 04:00 01/11/23 04:00 01/11/23 04:00 01/11/23 04:00 01/11/23 04:00 General: Alert, In no apparent distress, Oriented x3 HEENT: Atraumatic, Normocephalic, PERRLA Neck: Tracheostomy Respiratory: Diminished breath sounds. Bibasilar crackles. On Trach collar 5LPM Cardiovascular: No edema, Normal pulses Gastrointestinal: Normal bowel sounds. Soft and benign, Non-distended. G-tube Musculoskeletal: No clubbing, No swelling. 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 Integumentary: Pressure ulcer sacrum stage 2 Neurological: Prior CVA, left sided weakness/paralysis Urinary: Ortega catheter (chronic) Studies Laboratory Data - Reviewed Microbiology Data - Reviewed Imagings Data: - Reviewed Medications List Reviewed: Yes Impression and Plan Problem List CAD NSTEMI Hypertension Hyperlipidemia Sepsis Pneumonia Urinary Tract Infection Chronic Hypoxic Respiratory Failure s/p tracheostomy Diabetes Mellitus Type I Hypothyroidism Acute on Chronic Kidney Disease Stage 4 Hx CVA Anemia Severe PCM Sepsis Aspiration Pneumonia - Blood cultures 12/30: No growth to date - XR Chest 12/30: "No significant change in mild right basilar lung opacities probably pneumonia. Upper lobes appear clear. Heart is normal size. Tracheostomy tube in place." - Trach dependent. On Trach collar 5LPM. SpO2 98% - XR Chest 01/09: "Mild increase in right basilar lung opacities since comparative study.' - CT Chest 01/09: "Moderate posterior bibasilar lung opacities, greater on the right likely represent bilateral pneumonia" - Patient completed 7 day course of Zosyn 12/30-01/05 - sputum culture pending Catheter Associated Urinary Tract Infection - UA 12/30: 4+ glucose, 1+ ketones, LE 75, RBC 11-20, WBC 20-50, many yeast - Urine culture 12/30: 4+ yeast not gavino albicans; colony count >100,000 cfu/ml - Chronic ortega catheter, replaced 12/30 - On Fluconazole (started 01/02) Diarrhea - Recently hospitalized on antibiotics, [facility]. - C.diff negative 01/03 - On probiotic - improving NSTEMI: Cardiology following. s/p left heart cath 01/05. CKD: Nephrology on case Leukocytosis resolved Afebrile Recommendations - Fungal UTI: Continue Fluconazole x 14 days (01/02-01/15). Currently day 10 of 14. - Pneumonia: Completed 7 days of Zosyn 12/30-01/05 - Apply barrier cream to sacrum/buttocks - Aspiration precautions - Continue supportive care and nutritional support as needed. Pending auth. to return to [place]. Case management following. ID will follow patient as needed. Case discussed with Flavio Merrill
[2023-01-11] MEDS: AMLODIPINE 5 MG TAB PO SCH (09:59)
[2023-01-11] MEDS: ASPIRIN EC 81 MG TAB PO SCH (09:59)
[2023-01-11] MEDS: ESCITALOPRAM 20 MG TAB PO SCH (09:59)
[2023-01-11] MEDS: carvediloL 6.25 MG TAB PO SCH ×2 (09:59→21:49)
[2023-01-11] MEDS: TICAGRELOR 90 MG TABLET PO SCH ×2 (09:59→21:49)
[2023-01-11] MEDS: NEPRO 1,000 ML BOT FT SCH ×4 (10:00→22:04)
[2023-01-11] MEDS: INSULIN GLARGINE 100 UNIT/ML SQ SCH ×2 (10:01→21:48)
--- NOTE | 2023-01-11 11:41 | P.PN ---
Nephrology note (S) Pt well known to me from the last admission and pt unfortunately re-admitted within 30 days of last admission, pls see my consult note from 12/16/22 for full details. Pt [place] come [place] in [place] today with hyperglycemia, leukocytosis, significant troponin leak although seen in the ICU, he denies CP, dyspnea, abd pain or N/V. Urine is present in ortega and does not appear overtly turbid. 01/02: Seen after the weekend, pt's condition stable, remains in the ICU, not on any drips. Hemodynamically stable, denies any CP or dyspnea 01/03: Stress test done this AM, report noted, pt seen getting some bolus feeds in the ICU, BP a bit higher now. Reports of loose stool, plan for C diff testing noted 01/04: Cardiology note reviewed and it appears plan now is for [facility] tmrw in light of abnormal stress test. Pt seen otherwise resting comfortably, no acute health issues 01/05: Pt seen s/p [facility], findings reviewed, UOP remains good, stable vitals post procedure 01/06 Pt seen in the ICU remaining in stable condition 01/07 Pt now out of the ICU, resting comfortably 01/10: Pt seen resting comfortably, denies CP or dyspnea 01/11: No acute issues, vitals stable, remains on trach collar (O) Vitals reviewed in the EMR General: In no apparent distress, Cachectic HEENT: Atraumatic, Normocephalic Neck: Other (trach with trach collar) Respiratory: Other (b/l air entry, no wheezes or rhonchi anteriorly, mildly diminished at bases) Cardiovascular: Regular rate/rhythm, Diastolic murmur Gastrointestinal: Soft and benign, Non-distended, Other (PEG tube present) Musculoskeletal: No swelling, Other (Muscle mass loss) Integumentary: Other (Did not examine for decubitus) Neurological: Resting so did not awaken Laboratory Data (last 24 hrs) Reviewed admission labs and imaging reports. Conclusions/Impression: A/P) 1. Stage III ARF per JEFFREY definition last month with presenting Cr level > 4 mg/dl on underlying CKD NOS, but suspected advanced (Stage IV most likely) given prior/recent labs, pt with other prior KATLYN episodes, however with his diminished muscle mass the elevated Cr levels may be even more notable. Recurrent KATLYN in the setting of likely intravascular volume depletion, hemodynamic factors, other. Renal function typically improves to baseline range, mid to upper 2s Cr level post hydration. 2. Renal imaging when last checked did not show obstructive uropathy, pt with chronic ortega it appears. Did exchange ortega on admission based on last written date on the ortega bag (11/30). Chronic abnormal findings in urine, hx of UTIs/bacteriuria. WBC improved with Abx 3. Hyperkalemia recently, none currently Maintain off ACEi or ARB therapy. 4. AG metab acidosis on the last admission, none on admission despite BG > 500. 5. Significant troponin leak, NSTEMI. Troponins were neg on the last admission. Pt had mod to higher risk for RACHEL based on two or more risk factors. Stress test does show reduced EF and some fixed and reversible defects, underwent LHC last week with findings of multi-vessel disease, with PCI/BEA of LAD. No evidence of RACHEL with contrast exposure. IVF stopped early on, LVEDP was not sig elevated 6. Type II DM with hyperglycemia and recent DKA episode -need to review Insulin and bolus feed regimen with NH on discharge given recurrent admissions. 7. Anemia of CKD, other -Hb although stable remains < 9, will dose MAYRA 10,000 units once. Amrit Howard MD, EMMA
[2023-01-11] MEDS ORDERED: EPOETIN ALFA-EPBX 10,000 UNIT/ML VIAL SQ SCH (12:00)
[2023-01-11] MEDS: FLUCONAZOLE 100 MG TAB PO SCH (13:59)
--- NOTE | 2023-01-11 14:14 | P.PN ---
Subjective Date of Service: 01/11/23 Chief Complaint: NSTEMI No major changes from yesterday. Patient appears comfortable on oxygen by trach-collar. Physical Examination - Vital Signs Temperature: 97.7 F Blood Pressure: 133/66 Pulse: 75 Respirations: 17 Pulse Ox (%): 97 Assessment And Plan - Plan Physical Exam General: In no apparent distress Neck: Tracheostomy collar Respiratory: Bilateral upper airway transmitted sounds, Normal air movement Cardiovascular: No edema, Normal S1 S2 Gastrointestinal: Normal bowel sounds, Soft and benign, Non-distended, No tenderness Musculoskeletal: No swelling Integumentary: No rashes, No cyanosis Neurological: Normal strength at 5/5 x4 extr Plan: Coronary Artery Disease with Non-ST Segment Elevation Myocardial Infarction/History of Cerebrovascular Accident/Hypertension/Hyperlipidemia - EKG: without STEMI criteria. - Trend troponin: first was 3116.3, trended down to 2652 - Transthoracic echocardiogram (September 2022) = "1. NORMAL LEFT VENTRICULAR EJECTION FRACTION 55-60%. 2. DIASTOLIC DYSFUNCTION. 3. MILD PULMONARY REGURGITATION." - Chest x-ray = "no significant change in mild right basilar lung opacities probably pneumonia. Upper lobes appear clear. Heart is normal size. Tracheostomy tube in place." - Cardiology consulted and Dr. Domingo spoke with Dr. Elliott. -Patient treated with heparin drip -Status post cardiac catheterization: Severe mid LAD stenosis, status post successful PCI. Severe OM1 branch stenosis; however, it is very small vessel, will be left for medical management. - Continue aspirin, Brilinta carvedilol, atorvastatin -No ANTONIO-inhibitor/ARB given KATLYN Sepsis secondary to Aspiration Pneumonia +/- Catheter-Associated Urinary Tract Infection (POA)/Chronic Hypoxic Respiratory Failure s/p Tracheostomy /Chronic Obstructive Pulmonary Disease He met sepsis criteria based on tachypnea and leukocytosis. Patient had severe leukocytosis Chest x-ray = "no significant change in mild right basilar lung opacities probably pneumonia. Upper lobes appear clear. Heart is normal size. Tracheostomy tube in place." blood cultures: No growth to date. Urine cultures growing Jeanne. Patient completed IV Zosyn for aspiration pneumonia. Also placed on Diflucan for candiduria Leukocytosis resolved. Infectious disease is following. Hyperglycemia in Type I Diabetes Mellitus -No DKA. -Blood sugar levels improved today Continue tube feeding. Titrate Lantus insulin Continue to monitor blood sugar Correction scale insulin KDIGO Stage I Acute Kidney Injury on Chronic Kidney Disease Stage IV - Creatinine = 3.70 (baseline creatinine ~2.5) on admit - Urinalysis = 4+ glucose, 1+ ketones, 75 leukocyte esterase, 11-20 RBCs, 20-50 WBCs, many yeast, 2+ protein - Nephrology is following. -Renal function is improved to baseline. - Fluid management per nephrology. -IV fluid discontinued. Hypothyroidism - Continue home levoythyroxine Depressive Disorder - Continue home escitalopram Benign Prostatic Hyperplasia -Continue tamsulosin. Clinically stable for discharge pending SNF placement.
[2023-01-11] MEDS: ATORVASTATIN 20 MG TAB PO SCH (21:48)
[2023-01-11] MEDS: TAMSULOSIN 0.4 MG SR CAP FT SCH (21:49)
[2023-01-12] MEDS: INSULIN -REGULAR HUMAN 50 UNIT/0.5 ML ML SQ SCH ×4 (00:43→17:18)
[2023-01-12] MEDS: LEVOTHYROXINE SOD 0.025 MG TAB PO SCH (05:47)
[2023-01-12] MEDS: BUDESONIDE 0.5 MG/2 ML NEB NEB SCH ×2 (07:20→20:35)
--- NOTE | 2023-01-12 08:43 | P.PN ---
Date of Service: 01/12/23 Chief Complaint: generalized weakness Subjective: Patient resting comfortably in bed. No acute events reported overnight. Afebrile. Still pending SNF authorization. Physical Examination Temp Pulse Resp BP Pulse Ox 97.4 F 75 18 141/71 H 100 01/12/23 08:00 01/12/23 08:00 01/12/23 08:00 01/12/23 08:00 01/12/23 08:00 General: Alert, In no apparent distress, Oriented x3 HEENT: Atraumatic, Normocephalic, PERRLA Neck: Tracheostomy Respiratory: Diminished breath sounds. Bibasilar crackles. On Trach collar 5LPM Cardiovascular: No edema, Normal pulses Gastrointestinal: Normal bowel sounds. Soft and benign, Non-distended. G-tube Musculoskeletal: No clubbing, No swelling. 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 Integumentary: Pressure ulcer sacrum stage 2 Neurological: Prior CVA, left sided weakness/paralysis Urinary: Ortega catheter Studies Laboratory Data - Reviewed Microbiology Data - Reviewed Imagings Data: - Reviewed Medications List Reviewed: Yes Impression and Plan Problem List CAD NSTEMI Hypertension Hyperlipidemia Sepsis Pneumonia Urinary Tract Infection Chronic Hypoxic Respiratory Failure s/p tracheostomy Diabetes Mellitus Type I Hypothyroidism Acute on Chronic Kidney Disease Stage 4 Hx CVA Anemia Severe PCM Sepsis Aspiration Pneumonia - Blood cultures 12/30: No growth to date - XR Chest 12/30: "No significant change in mild right basilar lung opacities probably pneumonia. Upper lobes appear clear. Heart is normal size. Tracheostomy tube in place." - Trach dependent. On Trach collar 5LPM. SpO2 100% - XR Chest 01/09: "Mild increase in right basilar lung opacities since comparative study.' - CT Chest 01/09: "Moderate posterior bibasilar lung opacities, greater on the right likely represent bilateral pneumonia" - Patient completed 7 day course of Zosyn 12/30-01/05 - Sputum culture 01/11: Pending Catheter Associated Urinary Tract Infection - UA 12/30: 4+ glucose, 1+ ketones, LE 75, RBC 11-20, WBC 20-50, many yeast - Urine culture 12/30: 4+ yeast not gavino albicans; colony count >100,000 cfu/ml - Chronic ortega catheter, replaced 12/30 - On Fluconazole (started 01/02) Diarrhea - Recently hospitalized on antibiotics, discharged to alf. - C.diff negative 01/03 - On probiotic - improving NSTEMI: Cardiology following. s/p left heart cath 01/05. CKD: Nephrology on case Leukocytosis resolved Afebrile Recommendations - Fungal UTI: Continue Fluconazole x 2 weeks (01/02-01/15). Currently day 11 of 14. - Completed 7 days of Zosyn 12/30-01/05 for pneumonia - Strict blood glucose control - Aspiration precautions - Continue supportive care and nutritional support as needed. Authorization to return to SNF still pending. Case management following. ID will follow patient as needed. Case discussed with Flavio Merrill
[2023-01-12] MEDS: LACTOBACILLUS/ACIDOPHILUS TAB PO SCH ×2 (10:04→22:55)
[2023-01-12] MEDS: TICAGRELOR 90 MG TABLET PO SCH ×2 (10:04→22:55)
[2023-01-12] MEDS: ESCITALOPRAM 20 MG TAB PO SCH (10:04)
[2023-01-12] MEDS: ASPIRIN EC 81 MG TAB PO SCH (10:05)
[2023-01-12] MEDS: carvediloL 6.25 MG TAB PO SCH ×2 (10:05→22:55)
[2023-01-12] MEDS: AMLODIPINE 5 MG TAB PO SCH (10:05)
[2023-01-12] MEDS: NEPRO 1,000 ML BOT FT SCH ×4 (10:06→22:54)
[2023-01-12] MEDS: INSULIN GLARGINE 100 UNIT/ML SQ SCH ×2 (10:06→22:56)
[2023-01-12] MEDS: FLUCONAZOLE 100 MG TAB PO SCH (12:03)
--- NOTE | 2023-01-12 12:20 | P.PN ---
Subjective Date of Service: 01/12/23 Chief Complaint: NSTEMI No major changes from yesterday. Patient has no new complaint. He is comfortable on oxygen by trach-collar. Physical Examination - Vital Signs Temperature: 97.4 F Blood Pressure: 141/71 Pulse: 75 Respirations: 18 Pulse Ox (%): 100 Assessment And Plan - Plan Physical Exam General: In no apparent distress Neck: Tracheostomy collar Respiratory: Bilateral upper airway transmitted sounds, Normal air movement Cardiovascular: No edema, Normal S1 S2 Gastrointestinal: Normal bowel sounds, Soft and benign, Non-distended, No tende rness Musculoskeletal: No swelling Integumentary: No rashes, No cyanosis Neurological: Normal strength at 5/5 x4 extr Plan: Coronary Artery Disease with Non-ST Segment Elevation Myocardial Infarction/History of Cerebrovascular Accident/Hypertension/Hyperlipidemia - EKG: without STEMI criteria. - Trend troponin: first was 3116.3, trended down to 2652 - Transthoracic echocardiogram (September 2022) = "1. NORMAL LEFT VENTRICULAR EJECTION FRACTION 55-60%. 2. DIASTOLIC DYSFUNCTION. 3. MILD PULMONARY REGURGITATION." - Chest x-ray = "no significant change in mild right basilar lung opacities probably pneumonia. Upper lobes appear clear. Heart is normal size. Tracheostomy tube in place." - Cardiology consulted and Dr. Domingo spoke with Dr. Elliott. -Patient treated with heparin drip -Status post cardiac catheterization: Severe mid LAD stenosis, status post successful PCI. Severe OM1 branch stenosis; however, it is very small vessel, will be left for medical management. - Continue aspirin, Brilinta carvedilol, atorvastatin -No ANTONIO-inhibitor/ARB given KATLYN Sepsis secondary to Aspiration Pneumonia +/- Catheter-Associated Urinary Tract Infection (POA)/Chronic Hypoxic Respiratory Failure s/p Tracheostomy /Chronic Obstructive Pulmonary Disease He met sepsis criteria based on tachypnea and leukocytosis. Patient had severe leukocytosis Chest x-ray = "no significant change in mild right basilar lung opacities probably pneumonia. Upper lobes appear clear. Heart is normal size. Tracheostomy tube in place." blood cultures: No growth to date. Urine cultures growing Jeanne. Patient completed IV Zosyn for aspiration pneumonia. Also placed on Diflucan for candiduria Leukocytosis resolved. Infectious disease is following. Hyperglycemia in Type I Diabetes Mellitus -No DKA. -Blood sugar levels fluctuate but overall stable. Continue tube feeding. Titrate Lantus insulin Continue to monitor blood sugar Correction scale insulin KDIGO Stage I Acute Kidney Injury on Chronic Kidney Disease Stage IV - Creatinine = 3.70 (baseline creatinine ~2.5) on admit - Urinalysis = 4+ glucose, 1+ ketones, 75 leukocyte esterase, 11-20 RBCs, 20-50 WBCs, many yeast, 2+ protein - Nephrology is following. -Renal function has improved to baseline. - Fluid management per nephrology. -IV fluid discontinued. Hypothyroidism - Continue home levoythyroxine Depressive Disorder - Continue home escitalopram Benign Prostatic Hyperplasia -Continue tamsulosin. Clinically stable for discharge pending SNF placement.
[2023-01-12] MEDS: TAMSULOSIN 0.4 MG SR CAP FT SCH (22:55)
[2023-01-12] MEDS: ATORVASTATIN 20 MG TAB PO SCH (22:56)
[2023-01-12] MEDS ORDERED: PROMETHAZINE INJ 25 MG/ML AMP IV ONE (23:50)
[2023-01-13 03:19] LABS: Absolute Lymphocytes (CBC) 2.1 K/uL (0.7-4.9); Hematocrit 26.4 % (39.6-49.0); Lymphocytes % 19.8 % (15.3-44.8); MCV 82.7 fL (80-100); MPV 7.6 fL (7.6-11.3); RBC Red Blood Cell Count 3.19 M/uL (4.33-5.43)
[2023-01-13 03:33] LABS: Potassium 3.5 mEq/L (3.5-5.1)
[2023-01-13] MEDS: INSULIN -REGULAR HUMAN 50 UNIT/0.5 ML ML SQ SCH ×3 (05:10→12:00)
[2023-01-13] MEDS: LEVOTHYROXINE SOD 0.025 MG TAB PO SCH (06:09)
[2023-01-13] MEDS: BUDESONIDE 0.5 MG/2 ML NEB NEB SCH (07:50)
[2023-01-13] MEDS: INSULIN GLARGINE 100 UNIT/ML SQ SCH (09:00)
[2023-01-13 09:01] VITALS: O2SAT 97
--- NOTE | 2023-01-13 09:10 | P.PN ---
Date of Service: 01/13/23 Chief Complaint: generalized weakness Subjective: Patient reported vomiting x4 overnight. Patient in bed, awake and oriented x3. Physical Examination Temp Pulse Resp BP Pulse Ox 97.2 F 85 18 148/76 H 96 01/13/23 08:00 01/13/23 08:00 01/13/23 08:00 01/13/23 08:00 01/13/23 08:00 General: Alert, In no apparent distress, Oriented x3 HEENT: Atraumatic, Normocephalic, PERRLA Neck: Tracheostomy Respiratory: Diminished breath sounds. Bibasilar crackles. On Trach collar 5LPM Cardiovascular: No edema, Normal pulses Gastrointestinal: Normal bowel sounds. Soft and benign, Non-distended. G-tube Musculoskeletal: No clubbing, No swelling. 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 Integumentary: Pressure ulcer sacrum stage 2 Neurological: Prior CVA, left sided weakness/paralysis Urinary: Ortega catheter Studies Laboratory Data - Reviewed Microbiology Data - Reviewed Imagings Data: - Reviewed Medications List Reviewed: Yes Impression and Plan Problem List CAD NSTEMI Hypertension Hyperlipidemia Sepsis Pneumonia Urinary Tract Infection Chronic Hypoxic Respiratory Failure s/p tracheostomy Diabetes Mellitus Type I Hypothyroidism Acute on Chronic Kidney Disease Stage 4 Hx CVA Anemia Severe PCM Sepsis Aspiration Pneumonia - Trach dependent. On Trach collar 5LPM. SpO2 98% - Blood cultures 12/30: No growth to date - XR Chest 12/30: "No significant change in mild right basilar lung opacities probably pneumonia. Upper lobes appear clear. Heart is normal size. Tracheostomy tube in place." - XR Chest 01/09: "Mild increase in right basilar lung opacities since comparative study.' - CT Chest 01/09: "Moderate posterior bibasilar lung opacities, greater on the right likely represent bilateral pneumonia" - Patient completed 7 day course of Zosyn 12/30-01/05 - Sputum culture 01/11: Pending Catheter Associated Urinary Tract Infection - UA 12/30: 4+ glucose, 1+ ketones, LE 75, RBC 11-20, WBC 20-50, many yeast - Urine culture 12/30: 4+ yeast not gavino albicans; colony count >100,000 cfu/ml - Chronic ortega catheter, replaced 12/30 - On 14 day course of Fluconazole (started 01/02) NSTEMI: Cardiology following. s/p left heart cath 01/05. CKD: Nephrology on case Leukocytosis resolved Afebrile Recommendations Authorization to return to SNF still pending. Case management following. - Fungal UTI: Fluconazole x 2 weeks (01/02-01/15). Currently day 12 of 14. - Strict blood glucose control - Aspiration precautions - Pneumonia: Completed 7 days of Zosyn (12/30-01/05) - Continue supportive care and nutritional support as needed. ID will follow patient as needed. Case discussed with Flavio Merrill
[2023-01-13] MEDS: LACTOBACILLUS/ACIDOPHILUS TAB PO SCH (09:29)
[2023-01-13] MEDS: TICAGRELOR 90 MG TABLET PO SCH (09:29)
[2023-01-13] MEDS: ASPIRIN EC 81 MG TAB PO SCH (09:29)
[2023-01-13] MEDS: ESCITALOPRAM 20 MG TAB PO SCH (09:31)
[2023-01-13] MEDS: NEPRO 1,000 ML BOT FT SCH ×2 (09:31→12:51)
[2023-01-13] MEDS: AMLODIPINE 5 MG TAB PO SCH (09:31)
[2023-01-13] MEDS: carvediloL 6.25 MG TAB PO SCH (09:31)
--- NOTE | 2023-01-13 10:48 | P.DS ---
Admission Date: 12/30/22 Discharge Date: 01/13/23 Disposition: TRANSFER TO JAIL Discharge Condition: FAIR Reason for Admission: NSTEMI Brief History of Present Illness: Mr. Douglas Carrillo is a 57 year old male who has a past medical history of a prior cerebrovascular accident s/p tracheostomy and PEG tube, chronic hypoxic respiratory failure, previously admitted for aspiration pneumonia, type I diabetes mellitus, chronic obstructive pulmonary disease, hyperlipidemia, an indwelling Simmons catheter, and chronic kidney disease stage IV who presented to the [facility] Emergency Department with generalized weakness. He is nonverbal at baseline. EMS was called for generalized weakness and he was found to have hyperglycemia. He is able to answered yes-no questions, and on review of systems, he denied any fevers, chills, headaches, chest pain, palpitations, shortness of breath, wheezing, cough, abdominal pain, nausea/vomiting, diarrhea, or any other symptoms. Upon presentation, his vital signs were notable for a respiratory rate up to 22 breaths/min. His laboratory studies were notable for a WBC count of 28,600, s hemoglobin of 8.7, s creatinine of 3.70 (baseline ~2.5), and an initial troponin of 3116.3. His EKG was without STEMI criteria. His chest x-ray revealed, "no significant change in mild right basilar lung opacities probably pneumonia. Upper lobes appear clear. Heart is normal size. Tracheostomy tube in place." Cardiiology was consulted in the Emergency Department, and recommended a heparin drip. He was admitted to the General Internal Medicine Service for further evaluation. Hospital Course: Coronary Artery Disease with Non-ST Segment Elevation Myocardial Infarction/History of Cerebrovascular Accident/Hypertension/Hyperlipidemia - EKG: without STEMI criteria. - Trend troponin: first was 3116.3, trended down to 2652 - Transthoracic echocardiogram (September 2022) = "1. NORMAL LEFT VENTRICULAR EJECTION FRACTION 55-60%. 2. DIASTOLIC DYSFUNCTION. 3. MILD PULMONARY REGURGITATION." - Chest x-ray = "no significant change in mild right basilar lung opacities probably pneumonia. Upper lobes appear clear. Heart is normal size. Tracheostomy tube in place." - Cardiology consulted and Dr. Domingo spoke with Dr. Elliott. -Patient treated with heparin drip -Dr. Elliott performed cardiac catheterization: Severe mid LAD stenosis, status post successful PCI. Severe OM1 branch stenosis; however, it is very small vessel. Dr. Elliott recommended medical management. -Patient treated with aspirin, Brilinta carvedilol, atorvastatin -No ANTONIO-inhibitor/ARB given KATLYN Sepsis secondary to Aspiration Pneumonia +/- Catheter-Associated Urinary Tract Infection (POA)/Chronic Hypoxic Respiratory Failure s/p Tracheostomy /Chronic Obstructive Pulmonary Disease He met sepsis criteria based on tachypnea and leukocytosis. Patient had severe leukocytosis Chest x-ray = "no significant change in mild right basilar lung opacities probably pneumonia. Upper lobes appear clear. Heart is normal size. Tracheostomy tube in place." blood cultures: No growth to date. Urine cultures growing Jeanne. Patient completed IV Zosyn for aspiration pneumonia. Also placed on Diflucan for candiduria. Patient completed 11 days of Diflucan. He is prescribed 3 more days to complete 14 days of treatment Leukocytosis resolved. Infectious disease evaluated patient and assisted with management. Hyperglycemia in Type I Diabetes Mellitus -No DKA. -Blood sugar levels fluctuate but overall stable. Continue tube feeding. Titrated Lantus insulin He was also on correction scale insulin KDIGO Stage I Acute Kidney Injury on Chronic Kidney Disease Stage IV - Creatinine = 3.70 (baseline creatinine ~2.5) on admit - Urinalysis = 4+ glucose, 1+ ketones, 75 leukocyte esterase, 11-20 RBCs, 20-50 WBCs, many yeast, 2+ protein - Nephrology is following. -Renal function has improved to baseline. -IV fluid discontinued. Hypothyroidism - Continued home levoythyroxine Depressive Disorder - Continued home escitalopram Benign Prostatic Hyperplasia -Continued tamsulosin. Clinically stable for discharge to SNF. Vital Signs/Physical Exam: Temp Pulse Resp BP Pulse Ox 97.2 F 85 18 148/76 H 96 01/13/23 08:00 01/13/23 08:00 01/13/23 08:00 01/13/23 08:00 01/13/23 08:00 General: Alert, In no apparent distress, Oriented x3 HEENT: Mucous membr. moist/pink Neck: Other (Tracheostomy ) Respiratory: Clear to auscultation bilaterally, Normal air movement Cardiovascular: No edema, Regular rate/rhythm, Normal S1 S2 Gastrointestinal: Normal bowel sounds, Soft and benign, Non-distended, Other (PEG tube) Musculoskeletal: No swelling Integumentary: No cyanosis Laboratory Data at Discharge: WBC 10.80 thou/uL (4.3-10.9) 01/13/23 02:35 Hgb 8.6 g/dL (13.6-17.9) L 01/13/23 02:35 Hct 26.4 % (39.6-49.0) L 01/13/23 02:35 Plt Count 528 thou/uL (152-406) H 01/13/23 02:35 PT Cancelled 12/30/22 16:30 INR Cancelled 12/30/22 16:30 APTT 32.0 SECONDS (24.3-36.9) 01/06/23 05:08 Sodium 142 mEq/L (136-145) 01/13/23 02:35 Potassium 3.5 mEq/L (3.5-5.1) 01/13/23 02:35 BUN 56 mg/dL (7-18) H 01/13/23 02:35 Creatinine 2.41 mg/dL (0.70-1.30) H 01/13/23 02:35 Glucose 139 mg/dL (74-106) H 01/13/23 02:35 Phosphorus 2.3 mg/dL (2.5-4.9) L 01/04/23 04:26 Magnesium 2.1 mg/dL (1.6-2.4) 01/09/23 02:37 Total Bilirubin 0.2 mg/dL (0.2-1.0) 01/05/23 04:25 AST 13 U/L (15-37) L 01/05/23 04:25 ALT 14 U/L (16-61) L 01/05/23 04:25 Alkaline Phosphatase 95 U/L (45-117) 01/05/23 04:25 Home Medications: Acetaminophen 2 tab .ROUTE Q4H PRN 10/22/22 Amlodipine [Norvasc*] 1 tab .ROUTE DAILY 10/22/22 Atorvastatin Calcium [Lipitor*] 1 tab .ROUTE BEDTIME 10/22/22 Budesonide [Pulmicort*] 2 ml .ROUTE Q12H 10/22/22 Carvedilol [Coreg] 1 tab .ROUTE BID 10/22/22 Ferrous Sulfate 5 ml .ROUTE Q12H 10/22/22 Lactulose [Enulose] 30 ml .ROUTE Q6H PRN 10/22/22 Levothyroxine Sodium 1 tab .ROUTE DAILY 10/22/22 Omeprazole 1 cap .ROUTE DAILY 10/22/22 Ondansetron [Zofran (Odt)*] 1 tab PO Q6H PRN 10/22/22 Tamsulosin HCl [Flomax] 1 cap .ROUTE BEDTIME 10/22/22 Nepro 240 ml FT QID bot 10/24/22 Aspirin [Aspirin EC 81 MG] 81 mg .ROUTE DAILY 12/16/22 Escitalopram Oxalate [Lexapro] 1 tab .ROUTE DAILY 12/16/22 Ipratropium/Albuterol Sulfate [Iprat-Albut 0.5-3(2.5) mg/3 ml] 3 ml .ROUTE Q6H 12/16/22 Lactobacillus Rhamnosus GG [Culturelle] 1 cap .ROUTE BID 12/16/22 Zinc Oxide [Zinc Oxide 20%*] 1 appl TOP Q12H PRN 12/16/22 Insulin -Regular Human [Novolin -R*] See Protocol SQ Q6HR ml 12/27/22 Insulin Glargine,Hum.rec.anlog [Semglee] 15 unit SQ Q12HR ml 12/27/22 Fluconazole 200 mg PO DAILY #3 tab 01/13/23 Insulin -Regular Human [Novolin -R*] See Protocol SQ Q6HR@0000,0600,1200,1800 ml 01/13/23 Ticagrelor [Brilinta*] 90 mg PO BID 01/13/23 carvediloL [Coreg*] 6.25 mg PO BID tab 01/13/23 New Medications: Fluconazole 200 mg PO DAILY #3 tab Diet: Tube feed Activity: Fall precautions Followup: OOTOOT [Primary Care Provider] - 2-3 Days Time spent managing pt's care (in minutes): 38
[2023-01-13 11:26] LABS: SARS-CoV-2 Antigen Rapid Res Negative (Negative)
[2023-01-13] MEDS: FLUCONAZOLE 100 MG TAB PO SCH (11:52)
[2023-01-13 12:38] VITALS: BP 125/67; TEMP 97.3
--- NOTE | 2023-01-13 13:18 | RAD REPORT ---
EXAM DESCRIPTION: Cesar Single View01/13/2023 1:05 pm CLINICAL HISTORY: Chest pain COMPARISON: January 09, 2023 FINDINGS: Mild improvement in bibasilar lung opacities Upper lobes appear clear. Heart is normal size Tracheostomy tube in place
== END 2023-01-13 14:27 | DRG 698 ==
LOC: ER 11:58 → 3RD-ICU 16:28 → 2ND 01-06 17:53
PROVIDERS: ADMIT Internal Medicine; ATTEND Internal Medicine
DX: T83.511A Infection and inflammatory reaction due to indwelling urethral catheter, initial encounter (principal); A41.9 Sepsis, unspecified organism; I21.4 Non-ST elevation (NSTEMI) myocardial infarction; J69.0 Pneumonitis due to inhalation of food and vomit; N17.0 Acute kidney failure with tubular necrosis; J96.11 Chronic respiratory failure with hypoxia; N18.4 Chronic kidney disease, stage 4 (severe); R64 Cachexia; E87.20 Acidosis, unspecified; I50.22 Chronic systolic (congestive) heart failure; I13.0 Hypertensive heart and chronic kidney disease with heart failure and stage 1 through stage 4 chronic kidney disease, or unspecified chronic kidney disease; I69.354 Hemiplegia and hemiparesis following cerebral infarction affecting left non-dominant side; B37.49 Other urogenital candidiasis; E10.22 Type 1 diabetes mellitus with diabetic chronic kidney disease; E10.51 Type 1 diabetes mellitus with diabetic peripheral angiopathy without gangrene; E10.65 Type 1 diabetes mellitus with hyperglycemia; D63.1 Anemia in chronic kidney disease; K21.9 Gastro-esophageal reflux disease without esophagitis; E10.9 Type 1 diabetes mellitus without complications; E78.5 Hyperlipidemia, unspecified; E86.0 Dehydration; F32.A Depression, unspecified; E87.5 Hyperkalemia; E03.9 Hypothyroidism, unspecified; N40.0 Benign prostatic hyperplasia without lower urinary tract symptoms; J44.9 Chronic obstructive pulmonary disease, unspecified; L89.152 Pressure ulcer of sacral region, stage 2; I25.10 Atherosclerotic heart disease of native coronary artery without angina pectoris; F17.200 Nicotine dependence, unspecified, uncomplicated; Z93.0 Tracheostomy status; Z78.1 Physical restraint status; Z88.1 Allergy status to other antibiotic agents; Z79.4 Long term (current) use of insulin; Z88.8 Allergy status to other drugs, medicaments and biological substances; Z79.82 Long term (current) use of aspirin; Z68.22 Body mass index [BMI] 22.0-22.9, adult; Z79.02 Long term (current) use of antithrombotics/antiplatelets; Z90.49 Acquired absence of other specified parts of digestive tract; Z89.522 Acquired absence of left knee; Z79.899 Other long term (current) drug therapy; Z79.890 Hormone replacement therapy; Z89.421 Acquired absence of other right toe(s); Z20.822 Contact with and (suspected) exposure to COVID-19
CPT/HCPCS: 36415; 71045; 71250; 76937; 78452; 80048; 80053; 80069; 81001; 82947; 83605; 83735; 84100; 84132; 84145; 84484; 85014; 85018; 85025; 85049; 85347; 85610; 85730; 86140; 87040; 87070; 87077; 87086; 87088; 87186; 87205; 87324; 87811; 89055; 93005; 93017; 93306; 93458; 94640; 94760; 96361; 96365; 96375; 99285; A9500; C1725; C1893; C9600; J0360; J0461; J1450; J1644; J1815; J2001; J2185; J2250; J2543; J2550; J2785; J3010; J7030; Q5106; Q9966

== ENCOUNTER 2023-01-23 18:12 | Inpatient (IN) | payer BC ==
[2023-01-23 18:50] LABS: Absolute Lymphocytes (CBC) 0.8 K/uL (0.7-4.9); Hematocrit 31.4 % (39.6-49.0); Lymphocytes % 3.1 % (15.3-44.8); MCV 84.6 fL (80-100); MPV 7.5 fL (7.6-11.3); RBC Red Blood Cell Count 3.72 M/uL (4.33-5.43)
[2023-01-23] MEDS ORDERED: NA CHLORIDE 0.9% 1,000 ML ONE ×2 (18:53→19:51)
[2023-01-23 19:08] LABS: SARS-CoV-2 Antigen Rapid Res Negative (Negative)
[2023-01-23 19:11] LABS: Albumin 2.4 g/dL (3.4-5.0); Bilirubin Total 0.3 mg/dL (0.2-1.0); Protein, Total 7.8 g/dL (6.4-8.2)
[2023-01-23 19:19] LABS: Potassium 2.4 mEq/L (3.5-5.1)
[2023-01-23 19:21] LABS: Protime INR 0.98
[2023-01-23] MEDS ORDERED: PIPERACIL/TAZO 3.375 GM VIAL IV ONE (19:52)
[2023-01-23] MEDS ORDERED: NA CHLORIDE 0.9% 100 ML ONE (19:52)
[2023-01-23] MEDS ORDERED: ACETAMINOPHEN 160 MG/5 ML UCUP ONE (19:52)
--- NOTE | 2023-01-23 20:11 | RAD REPORT ---
EXAM DESCRIPTION: CT - Abdomen Pelvis Wo Contrast - 01/23/2023 7:47 pm CLINICAL HISTORY: Abdominal pain COMPARISON: November 2022 TECHNIQUE: Computed axial tomography of the abdomen and pelvis was obtained. IV and oral contrast we re not requested. All CT scans are performed using dose optimization technique as appropriate and may include automated exposure control or mA/KV adjustment according to patient size. FINDINGS: The evaluation of solid organs, vessels and bowel is limited secondary to the lack of con trast administration. Opacities within the lower lobes have the appearance of pneumonia Gallbladder is distended. Stone within the gallbladder neck. Percutaneous tube within the stomach. The liver, spleen, pancreas, adrenals and kidneys appear grossly normal. Large amount stool within the colon . There is no evidence of diverticulitis. IMPRESSION: Moderate alveolar opacities within the lower lobes probably pneumonia Cholelithiasis with gallbladder distention Large amount stool within the colon
--- NOTE | 2023-01-23 20:12 | RAD REPORT ---
EXAM DESCRIPTION: Cesar Single View01/23/2023 7:34 pm CLINICAL HISTORY: Chest pain COMPARISON: January 13, 2023 FINDINGS: No significant change bibasilar lung opacities. Chronic elevation right hemidiaphragm. Heart is normal size. Tracheostomy tube in place IMPRESSION: Bibasilar lung opacities probably pneumonia
[2023-01-23 20:19] LABS: Specific Gravity 1.017 (1.005-1.030); Urine Bacteria 20-50 /HPF (<20); Urine Bilirubin NEGATIVE (Negative); Urine Blood 1+ (Negative); Urine Clarity Extremely Turbid (Clear); Urine Color Yellow (Yellow); Urine Crystals Unidentified Many /HPF (None Seen); Urine Glucose NEGATIVE (Negative); Urine Protein 3+ (Negative); Urine RBC >50 /HPF (None Seen); Urine Urobilinogen Normal (Normal); Urine WBC Clump Moderate /HPF (None Seen); Urine pH 5.5 (5.0-7.0)
--- NOTE | 2023-01-23 20:38 | ER ---
Nurse's Notes [facility] Name: Douglas Carrillo Age: 57 yrs Sex: Male : 1965 Arrival Date: 01/23/2023 Time: 18:12 Bed 16 Private MD: Diagnosis: Severe sepsis without septic shock;Pneumonia, unspecified organism;UTI/ Urinary tract infection, site not specified Presentation: 01/23 18:20 Chief complaint: EMS states: [facility] called for nausea, vomiting and no bowel ko1 movement. Coronavirus screen: nausea, vomiting. Ebola Screen: No symptoms or risks identified at this time. 18:20 Method Of Arrival: EMS: [facility] ko1 19:05 Initial Sepsis Screen: Does the patient meet any 2 criteria? No. Patient's initial ko1 sepsis screen is negative. Does the patient have a suspected source of infection? No. Patient's initial sepsis screen is negative. Risk Assessment: Do you want to hurt yourself or someone else? Patient reports no desire to harm self or others. Onset of symptoms was January 23, 2023. 19:05 Acuity: EMMANUEL 3 ko1 Triage Assessment: 18:30 General: Appears in no apparent distress. uncomfortable, ill, Behavior is calm, ko1 cooperative, appropriate for age. Pain: Denies pain. Historical: - Allergies: 19:07 Neostigmine Methylsulfate; ko1 19:07 Sulfa (Sulfonamide Antibiotics); ko1 - PMHx: 19:07 CVA; Hypertension; GERD; Diabetes - IDDM; ko1 - Immunization history:: Adult Immunizations unknown. - Social history:: Smoking status: Patient denies any tobacco usage or history of. - Family history:: not pertinent. - Hospitalizations: : No recent hospitalization is reported. Screenin:30 [facility] ED Fall Risk Assessment (Adult) History of falling in the last 3 months, ko1 including since admission No falls in past 3 months (0 pts) Confusion or Disorientation No (0 pts) Intoxicated or Sedated No (0 pts) Impaired Gait Yes (1 pt) Mobility Assist Device Used Yes (1 pt) Altered Elimination Yes (1 pt) Score/Fall Risk Level 3 or more points = High Risk Oriented to surroundings, Maintained a safe environment, Educated pt \T\ family on fall prevention, incl call for assistance when getting out of bed, Assessed \T\ reinforced patient's understanding of fall precautions, Provided non-skid footwear, Hourly rounding (assess needs \T\ fall precautionary measures) done, Used ambulatory aids as needed (educated on \T\ assisted with), Used gait belt as appropriate Implemented a Fall Risk Plan of Care, Apply high fall risk patient identification: yellow non skid footwear/ fall signage, Remained with patient while ambulating, Utilized family, sitter, or virtual glove turner and former as indicated. Abuse screen: Denies threats or abuse. Denies injuries from another. Nutritional screening: No deficits noted. Tuberculosis screening: No symptoms or risk factors identified. Assessment: 18:30 Neuro: Level of Consciousness is awake, alert, obeys commands, Manager Recruiting are weak on left ko1 Paralysis in left arm(s) leg(s) Speech trach. Cardiovascular: Rhythm is sinus tachycardia. Respiratory: Airway via trache Respiratory pattern is regular. GI: Parent/caregiver reports the patient having constipation, nausea, vomiting. : Simmons in place to gravity drainage preexisting. EENT: No deficits noted. Derm: No deficits noted. Musculoskeletal: Range of motion: limited in left side. Vital Signs: 19:05 BP 148 / 74; Pulse 103; Resp 20; Temp 100.5(T); Pulse Ox 98% ; ko1 19:52 Weight 77.11 kg; rv 21:22 BP 98 / 63; Pulse 96; Resp 20; Temp 98.9; Pulse Ox 98% ; rv 22:26 BP 120 / 63; Pulse 90; Resp 20; Pulse Ox 100% on 4 lpm TRACHE; rv [place] Coma Score: 22:26 Eye Response: spontaneous(4). Motor Response: obeys commands(6). Verbal Response: rv oriented(5). Total: 15. ED Course: 18:17 Patient arrived in ED. rn 18:18 Luiz Blair MD is Attending Physician. rn 18:23 Radiology exam delayed due to lab results not completed at this time. (BUN/Creatinine) bq IV insertion attempt and/or patient not having appropriate IV at this time. 18:24 Michelle Jiménez, FELIBERTO is Primary Nurse. ko1 18:30 Maintain EMS IV. Dressing intact. Good blood return noted. Site clean \T\ dry. Gauge \T\ ko 1 site: 20g Right FA. 18:30 Arm band placed on right wrist. Patient placed in an exam room, on a stretcher, on ko1 oxygen, on cardiac monitor technician, on pulse oximetry, Patient notified of wait time. 18:30 Patient has correct armband on for positive identification. Bed in low position. Call ko1 light in reach. Side rails up X2. Client placed on continuous cardiac and pulse oximetry monitoring. NIBP monitoring applied. cardiac monitor technician on. Door closed. Noise minimized. 18:39 Protime (+inr) Sent. ko1 18:39 Ptt, Activated Sent. ko1 18:39 Lactate w/ 2H reflex if indic. Sent. ko1 18:39 CBC with Diff Sent. ko1 18:39 CMP Sent. ko1 18:39 Lipase Sent. ko1 18:43 SARS RAPID Sent. ko1 18:43 Flu Sent. ko1 19:07 Triage completed. ko1 19:26 Blood Culture Adult (2) Sent. bc6 19:36 XRAY Chest (1 view) In Process Unspecified. EDMS 19:49 Abdomen In Process Unspecified. EDMS 20:37 Geoffrey Campuzano is Hospitalizing Provider. rn 22:26 No provider procedures requiring assistance completed. Patient admitted, IV remains in rv place. 22:48 Attending Physician role handed off by Luiz Blair MD rv Administered Medications: 18:44 Drug: NS 0.9% IV 1000 ml Route: IV; Rate: 1 bolus; Site: right antecubital; ko1 22:27 Follow up: IV Status: Completed infusion; IV Intake: 1000ml rv 20:07 Drug: NS 0.9% IV 1000 ml Route: IV; Rate: 1000 ml; Site: right forearm; rv 22:27 Follow up: IV Status: Completed infusion; IV Intake: 1000ml rv 20:07 Drug: Piperacillin-Tazobactam IVPB 3.375 grams Route: IVPB; Infused Over: 60 mins; rv Site: right forearm; 22:27 Follow up: IV Status: Completed infusion rv 20:20 Drug: Tylenol Feeding Tube 15 mg/kg Route: Feeding Tube; rv 22:48 Drug: Potassium PO Effervescent Tablet 50 mEq Route: PO; rv 22:48 Follow up: Response: Medication administered at discharge. rv Medication: 22:27 VIS not applicable for this client. rv Intake: 22:27 IV: 1000ml; Total: 1000ml. rv 22:27 IV: 1000ml; Total: 2000ml. rv Outcome: 20:38 Decision to Hospitalize by Provider. rn 22:26 Admitted to Med/surg accompanied by tech, via stretcher, room 208, with chart, Report rv called to OJ DAO 22:26 Condition: good 22:26 Instructed on the need for admit. 22:27 Patient left the ED. rv 22:49 Patient left the ED. rv Signatures: Dispatcher [employer] EDMS Neda Weber Roman, MD MD rn Vicente, Ronaldo RN RN rv Michelle Jiménez RN RN ko1 [facility]
--- NOTE | 2023-01-23 20:38 | EDPHYS ---
Physician Documentation [facility] Name: Douglas Carrillo Age: 57 yrs Sex: Male : 1965 Arrival Date: 01/23/2023 Time: 18:12 Bed 16 Private MD: ED Physician HPI: 01/23 18:47 This 57 yrs old Male presents to ER via Unassigned with complaints of rn nausea/vomiting/constipation. 18:47 The patient presents to the emergency department with nausea, vomiting. Onset: The rn symptoms/episode began/occurred 5 day(s) ago. Possible causes: unknown. The symptoms are aggravated by nothing. The symptoms are alleviated by nothing. Associated signs and symptoms: Pertinent positives: constipation, nausea, vomiting, Pertinent negatives: fever, GI bleeding. Severity of symptoms: At their worst the symptoms were moderate in the emergency department the symptoms are unchanged. The patient has not experienced similar symptoms in the past. The patient has not recently seen a physician. Sent from group home for constipation for 5 days, and began vomiting today. + low grade fever. Patient denies abd pain.. Historical: - Allergies: 19:07 Neostigmine Methylsulfate; ko1 19:07 Sulfa (Sulfonamide Antibiotics); ko1 - PMHx: 19:07 CVA; Hypertension; GERD; Diabetes - IDDM; ko1 - Immunization history:: Adult Immunizations unknown. - Social history:: Smoking status: Patient denies any tobacco usage or history of. - Family history:: not pertinent. - Hospitalizations: : No recent hospitalization is reported. ROS: 18:48 Constitutional: + fever Eyes: Negative for injury, pain, redness, and discharge, pattern carrier: Negative for chest pain, palpitations, and edema, Respiratory: Negative for shortness of breath, cough, wheezing, and pleuritic chest pain, Abdomen/GI: + nausea/vomiting/constipation MS/Extremity: Negative for injury and deformity, Skin: Negative for injury, rash, and discoloration, Neuro: Negative for headache, weakness, numbness, tingling, and seizure. Exam: 18:48 Constitutional: This is a well developed, well nourished patient who is awake, alert, rn and in no acute distress. Head/Face: Normocephalic, atraumatic. ENT: dry MM, no stridor Cardiovascular: Tachycardic, regular. No pulse deficits. Respiratory: No increased work of breathing, no retractions or nasal flaring. Abdomen/GI: Soft, non-tender Skin: Warm, dry MS/ Extremity: Pulses equal, no cyanosis. Neuro: Awake and alert, GCS 15 Vital Signs: 19:05 BP 148 / 74; Pulse 103; Resp 20; Temp 100.5(T); Pulse Ox 98% ; ko1 19:52 Weight 77.11 kg; rv 21:22 BP 98 / 63; Pulse 96; Resp 20; Temp 98.9; Pulse Ox 98% ; rv 22:26 BP 120 / 63; Pulse 90; Resp 20; Pulse Ox 100% on 4 lpm TRACHE; rv [place] Coma Score: 22:26 Eye Response: spontaneous(4). Motor Response: obeys commands(6). Verbal Response: rv oriented(5). Total: 15. MDM: 18:18 Patient medically screened. rn 20:35 Differential diagnosis: Nonspecific abd pain, gastritis, appendicitis, diverticulitis, rn viral gastroenteritis, gastroenteritis, pneumonia, sepsis, UTI. Data reviewed: vital signs, nurses notes, lab test result(s), radiologic studies, CT scan, plain films, and as a result, I will admit patient. Consideration of Admission/Observation Patient was admitted/placed on observation. Escalation of care including admission/observation considered. Counseling: I had a detailed discussion with the patient and/or guardian regarding: the historical points, exam findings, and any diagnostic results supporting the discharge/admit diagnosis, lab results, radiology results, the need for further work-up and treatment in the hospital. Response to treatment: the patient's symptoms have markedly improved after treatment, and as a result, I will admit patient. 20:35 ED course: Pt with severe sepsis, no shock, BP good, lactate normal. Will admit to rn hospitalist service for further care, abx administered after blood cultures obtained. . 01/23 18:18 Order name: CBC with Diff rn 01/23 18:18 Order name: CMP; Complete Time: 19:24 rn 01/23 18:18 Order name: Lipase; Complete Time: 19:24 rn 01/23 18:18 Order name: Urinalysis w/ reflexes; Complete Time: 20:34 rn 01/23 18:18 Order name: Flu; Complete Time: 19:24 rn 01/23 18:18 Order name: SARS RAPID; Complete Time: 19:24 rn 01/23 18:18 Order name: Lactate w/ 2H reflex if indic.; Complete Time: 19:24 rn 01/23 18:18 Order name: Blood Culture Adult (2) rn 01/23 18:19 Order name: Protime (+inr); Complete Time: 19:24 rn 01/23 18:19 Order name: Ptt, Activated; Complete Time: 19:24 rn 01/23 20:22 Order name: Urine Culture [facility] 01/23 22:04 Order name: Manual Differential [facility] 01/23 18:48 Order name: XRAY Chest (1 view); Complete Time: 20:34 rn 01/23 19:26 Order name: Abdomen ; Complete Time: 20:34 [facility] 01/23 18:19 Order name: EKG; Complete Time: 18:19 rn 01/23 18:18 Order name: IV Saline Lock; Complete Time: 18:39 rn 01/23 18:18 Order name: Labs collected and sent; Complete Time: 19:14 rn 01/23 18:19 Order name: Accucheck; Complete Time: 18:25 rn 01/23 18:19 Order name: Cardiac monitoring; Complete Time: 18:24 rn 01/23 18:19 Order name: EKG - Nurse/Tech; Complete Time: 18:51 rn 01/23 18:19 Order name: IV Saline Lock - Large Bore; Complete Time: 18:39 rn 01/23 18:19 Order name: O2 Per Protocol; Complete Time: 18:25 rn 01/23 18:19 Order name: O2 Sat Monitoring; Complete Time: 18:25 rn 01/23 18:19 Order name: Vital Signs; Complete Time: 18:25 rn Administered Medications: 18:44 Drug: NS 0.9% IV 1000 ml Route: IV; Rate: 1 bolus; Site: right antecubital; ko1 22:27 Follow up: IV Status: Completed infusion; IV Intake: 1000ml rv 20:07 Drug: NS 0.9% IV 1000 ml Route: IV; Rate: 1000 ml; Site: right forearm; rv 22:27 Follow up: IV Status: Completed infusion; IV Intake: 1000ml rv 20:07 Drug: Piperacillin-Tazobactam IVPB 3.375 grams Route: IVPB; Infused Over: 60 mins; rv Site: right forearm; 22:27 Follow up: IV Status: Completed infusion rv 20:20 Drug: Tylenol Feeding Tube 15 mg/kg Route: Feeding Tube; rv 22:48 Drug: Potassium PO Effervescent Tablet 50 mEq Route: PO; rv 22:48 Follow up: Response: Medication administered at discharge. rv Disposition Summary: 01/23/23 20:38 Hospitalization Ordered Hospitalization Status: Inpatient Admission rn Provider: Geoffrey Campuzano rn [facility] rn Condition: Stable rn Problem: new rn Symptoms: have improved rn Bed/Room Type: Standard rn Room Assignment: 208(01/23/23 21:53) cg Diagnosis - Severe sepsis without septic shock rn - Pneumonia, unspecified organism rn - UTI/ Urinary tract infection, site not specified rn Forms: - Medication Reconciliation Form rn - SBAR form jewelry internship time excluding procedures: 20:35 Critical care time: Bedside Care: 35 minutes, Consultation: 5 minutes. Total time: 40 rn minutes Signatures: Dispatcher [employer] EDAL Luiz Blair MD MD rn Garcia, Cindy RN RN Bimal Mukherjee RN RN Michelle Duarte RN RN ko1 Corrections: (The following items were deleted from the chart) 19:26 18:19 Abdomen Pelvis W Con+CT.RAD.BRZ ordered. [facility] 21:53 20:38 rn cg
[2023-01-23 22:03] LABS: Blood Morphology Comment NOT SEEN (NOT SEEN); Platelet Estimate INCR
--- NOTE | 2023-01-23 22:39 | P.HP ---
Certification for Inpatient Patient admitted to: Inpatient With expected LOS: >2 Midnights Patient will require the following post-hospital care: None Practitioner: I am a practitioner with admitting privileges, knowledge of patient current condition, hospital course, and medical plan of care. Services: Services provided to patient in accordance with Admission requirements found in Title 42 Section 412.3 of the Code of Federal Regulations Patient History Date of Service: 01/24/23 Reason for admission: Pneumonia, UTI, Severe Sepsis History of Present Illness: Mr. Carrillo is a 57 year old non-verbal male with past medical history of CVA s/p tracheostomy and PEG tube, chronic hypoxic respiratory failure, recurrent aspiration pneumonia, hypothyroidism, type I diabetes mellitus, COPD, hyperlipidemia, chronic indwelling Simmons catheter, and CKD IV who presented to the Emergency Department from group home with nausea, vomiting, and constipation. He denies any abdominal pain. Today his labs are significant for WBC 24.8, hemoglobin 9.6, sodium 146, potassium 2.4, chloride 117, BUN 70, creatinine 2.48, urine positive for UTI. CT showed "Moderate alveolar opacities within the lower lobes probably pneumonia. Cholelithiasis with gallbladder distention. Large amount stool within the colon." He was started on Zosyn in the emergency department. BP stable. Lactate within normal limits. We will admit patient for further management. Allergies Sulfa (Sulfonamide Antibiotics) Allergy (Verified 05/13/19 16:25) Itching/Hives/Rash Home medications list reviewed: Yes Home Medications: Acetaminophen 2 tab .ROUTE Q4H PRN 10/22/22 Amlodipine [Norvasc*] 1 tab .ROUTE DAILY 10/22/22 Atorvastatin Calcium [Lipitor*] 1 tab .ROUTE BEDTIME 10/22/22 Budesonide [Pulmicort*] 2 ml .ROUTE Q12H 10/22/22 Carvedilol [Coreg] 1 tab .ROUTE BID 10/22/22 Ferrous Sulfate 5 ml .ROUTE Q12H 10/22/22 Lactulose [Enulose] 30 ml .ROUTE Q6H PRN 10/22/22 Levothyroxine Sodium 1 tab .ROUTE DAILY 10/22/22 Omeprazole 1 cap .ROUTE DAILY 10/22/22 Ondansetron [Zofran (Odt)*] 1 tab PO Q6H PRN 10/22/22 Tamsulosin HCl [Flomax] 1 cap .ROUTE BEDTIME 10/22/22 Nepro 240 ml FT QID bot 10/24/22 Aspirin [Aspirin EC 81 MG] 81 mg .ROUTE DAILY 12/16/22 Escitalopram Oxalate [Lexapro] 1 tab .ROUTE DAILY 12/16/22 Ipratropium/Albuterol Sulfate [Iprat-Albut 0.5-3(2.5) mg/3 ml] 3 ml .ROUTE Q6H 12/16/22 Lactobacillus Rhamnosus GG [Culturelle] 1 cap .ROUTE BID 12/16/22 Zinc Oxide [Zinc Oxide 20%*] 1 appl TOP Q12H PRN 12/16/22 Insulin -Regular Human [Novolin -R*] See Protocol SQ Q6HR ml 12/27/22 Insulin Glargine,Hum.rec.anlog [Semglee] 15 unit SQ Q12HR ml 12/27/22 Fluconazole 200 mg PO DAILY #3 tab 01/13/23 Insulin -Regular Human [Novolin -R*] See Protocol SQ Q6HR@0000,0600,1200,1800 ml 01/13/23 Ticagrelor [Brilinta*] 90 mg PO BID 01/13/23 carvediloL [Coreg*] 6.25 mg PO BID tab 01/13/23 - Past Medical/Surgical History Diabetic: Yes -: DM I -: CKD IV (Dr. Edmonds) -: CAD -: Hypertension -: Hyperlipidemia -: PVD -: History TIA/CVA -: Congestive Heart Failure -: Appendectomy -: Left below-knee amputation -: Multiple surgeries to the right lower extremity -: Right foot all toes amputated- february 2019 Psychosocial/ Personal History: Patient lives at [facility]. - Family History Mother -: Cancer - Social History Smoking Status: Never smoker Alcohol use: Yes CD- Drugs: No Caffeine use: Yes Place of Residence: Home Review of Systems Gastrointestinal: Nausea, Vomiting, Constipation Physical Examination - Vital Signs Temperature: 97.6 F Blood Pressure: 111/62 Pulse: 95 Respirations: 17 Pulse Ox (%): 100 (4L trach collar) - Physical Exam General: Alert, In no apparent distress HEENT: Atraumatic, EOMI, Sclerae nonicteric Neck: Supple, 2+ carotid pulse no bruit Respiratory: Diminished Cardiovascular: Regular rate/rhythm, Normal S1 S2 Gastrointestinal: Normal bowel sounds, No tenderness Musculoskeletal: No tenderness Integumentary: No rashes Neurological: Normal speech, Normal affect - Studies Laboratory Data (last 24 hrs) 01/23/23 18:35: PT 10.8, INR 0.98, APTT 32.5 01/23/23 18:35: Sodium 146 H, Potassium 2.4 L*, BUN 70 H, Creatinine 2.48 H, Glucose 159 H, Total Bilirubin 0.3, AST 22, ALT 25, Alkaline Phosphatase 140 H, Lipase 17 01/23/23 18:35: WBC 24.80 H, Hgb 9.6 L, Hct 31.4 L, Plt Count 560 H Microbiology Data (last 24 hrs): 01/23/23 18:39 Nasopharnyx Influenza Type A Antigen Screen - Final 01/23/23 18:39 Nasopharnyx Influenza Type B Antigen Screen - Final Assessment and Plan - Problems (Diagnosis) (1) Pneumonia Current Visit: Yes Status: Acute Qualifiers: Pneumonia type: due to unspecified organism Laterality: bilateral Lung location: lower lobe of lung Qualified Code(s): J18.9 - Pneumonia, unspecified organism (2) Sepsis Current Visit: Yes Status: Acute Qualifiers: Sepsis type: sepsis due to unspecified organism Sepsis acute organ dysfunction status: with acute organ dysfunction Severe sepsis acute organ dysfunction type: acute renal failure Acute renal failure type: unspecified Severe sepsis shock status: without septic shock Qualified Code(s): A41.9 - Sepsis, unspecified organism; R65.20 - Severe sepsis without septic shock; N17.9 - Acute kidney failure, unspecified (3) UTI (urinary tract infection) Current Visit: Yes Status: Acute Qualifiers: Urinary tract infection type: catheter-associated UTI Indwelling urinary catheter type: indwelling urethral catheter Encounter type: sequela Qualified Code(s): T83.511S - Infection and inflammatory reaction due to i ndwelling urethral catheter, sequela; N39.0 - Urinary tract infection, site not specified (4) Anemia Current Visit: Yes Status: Chronic Qualifiers: Anemia type: due to chronic kidney disease Chronic kidney disease stage: stage 4 (severe) Qualified Code(s): N18.4 - Chronic kidney disease, stage 4 (severe); D63.1 - Anemia in chronic kidney disease (5) Chronic respiratory failure with hypoxia Current Visit: Yes Status: Chronic (6) Congestive heart failure Current Visit: Yes Status: Chronic Qualifiers: Heart failure type: diastolic Heart failure chronicity: chronic Qualified Code(s): I50.32 - Chronic diastolic (congestive) heart failure (7) Coronary artery disease Current Visit: Yes Status: Chronic Qualifiers: Coronary Disease-Associated Artery/Lesion type: [place] artery [place] vs. transplanted heart: [place] heart Associated angina: without angina Qualified Code(s): I25.10 - Atherosclerotic heart disease of [place] coronary artery without angina pectoris (8) Hypertension Current Visit: Yes Status: Chronic Qualifiers: Hypertension type: primary hypertension Qualified Code(s): I10 - Essential (primary) hypertension (9) Status post tracheostomy Current Visit: Yes Status: Chronic (10) Type 1 diabetes Current Visit: Yes Status: Chronic Qualifiers: Diabetes mellitus complication status: with hyperglycemia Qualified Code(s): E10.65 - Type 1 diabetes mellitus with hyperglycemia - Plan Sepsis secondary to Aspiration Pneumonia +/- Catheter-Associated Urinary Tract Infection (POA) He met sepsis criteria based on tachycardia, tachypnea, and leukocytosis. CT showed "Moderate alveolar opacities within the lower lobes probably pneumonia" Lactate within normal limits. Blood & urine cultures obtained. Tmax of 100.5. Improved after tylenol. Continue zosyn. History of Cerebrovascular Accident Stable, nonverbal Resume tube feeds via PEG Hypertension Currently normotensive/borderline hypotensive Hold home medications for now Chronic Hypoxic Respiratory Failure s/p Tracheostomy / COPD Oxygen satisfactory on 4L trach collar PRN nebs Hyperglycemia in Type I Diabetes Mellitus He does not appear to be in diabetic ketoacidosis Monitor glucose levels Correction scale insulin NS + KCL @ 75 mL/hr given hypokalemia Chronic Kidney Disease Stage IV Creatinine appears at baseline Hypothyroidism Continue home levoythyroxine Depressive Disorder Continue home escitalopram Benign Prostatic Hyperplasia Hold home tamsulosin given concern for sepsis Discharge Plan: Longterm Plan to discharge in: Greater than 2 days - Advance Directives Does patient have a Living Will: No Does patient have a Durable POA for Healthcare: No - Code Status/Comfort Care Code Status Assessed: Yes Code Status: Full Code Physician Review: Patient Assessed, Agree with Above Assessment and Plan Critical Care: No Time Spent Managing Pts Care (In Minutes): 50
[2023-01-23] MEDS ORDERED: POTASSIUM 25 MEQ EFFERV TAB ONE (22:49)
[2023-01-23] MEDS ORDERED: ALBUTEROL 2.5 MG/3 ML NEB SOL NEB PRN (23:40)
[2023-01-23] MEDS ORDERED: IPRATROPIUM BROM 0.5MG/2.5ML NEB PRN (23:40)
[2023-01-24 00:20] VITALS: BMI 21.1
[2023-01-24] MEDS: NS KCL 20MEQ 20 MEQ/1,000 ML BAG IV SCH ×3 (01:16→18:08)
[2023-01-24 03:35] LABS: Absolute Lymphocytes (CBC) 1.6 K/uL (0.7-4.9); Hematocrit 29.4 % (39.6-49.0); Lymphocytes % 5.3 % (15.3-44.8); MCV 85.7 fL (80-100); MPV 7.7 fL (7.6-11.3); RBC Red Blood Cell Count 3.43 M/uL (4.33-5.43)
[2023-01-24] MEDS: PIPER TAZO 3.375 GM in NA CHLORIDE 0.9% 100 ML IV SCH ×3 (04:11→21:05)
[2023-01-24 04:13] LABS: Phosphorus 4.9 mg/dL (2.5-4.9); Potassium 2.7 mEq/L (3.5-5.1)
[2023-01-24] MEDS: INSULIN -REGULAR HUMAN 50 UNIT/0.5 ML ML SQ SCH ×4 (06:09→18:24)
[2023-01-24] MEDS ORDERED: KCL 20 MEQ/100 mL IVPB 20 MEQ/100 ML BAG IV SCH (08:00)
[2023-01-24] MEDS ORDERED: NA CHLORIDE 0.9% 0 ML ONE (08:11)
[2023-01-24] MEDS: NEPRO 1,000 ML BOT FT SCH ×4 (08:52→21:00)
[2023-01-24] MEDS: HEPARIN 5000 UNIT/ML 1 ML VIAL SQ SCH ×2 (08:52→21:09)
[2023-01-24] MEDS ORDERED: POTASSIUM CL IV ONE ×2 (09:00)
[2023-01-24] MEDS ORDERED: NA CHLORIDE 0.9% IV ONE ×2 (09:00)
[2023-01-24] MEDS ORDERED: ALBUTEROL 2.5 MG/3 ML NEB SOL NEB PRN (11:00)
[2023-01-24] MEDS: ONDANSETRON 4 MG/2 ML VIAL IV PRN ×2 (13:07→22:03)
--- NOTE | 2023-01-24 15:17 | P.PN ---
Subjective Date of Service: 01/24/23 Chief Complaint: Pneumonia, UTI, Severe Sepsis Nursing staff report patient vomited this morning. Fluid suctioned from his mouth was slightly bile colored and so suspect significant reflux. Physical Examination - Vital Signs Temperature: 98.6 F Blood Pressure: 133/62 Pulse: 96 Respirations: 16 Pulse Ox (%): 97 - Studies Laboratory Data (last 24 hrs) 01/23/23 18:35: PT 10.8, INR 0.98, APTT 32.5 01/23/23 18:35: Sodium 146 H, Potassium 2.4 L*, BUN 70 H, Creatinine 2.48 H, Glucose 159 H, Total Bilirubin 0.3, AST 22, ALT 25, Alkaline Phosphatase 140 H, Lipase 17 01/23/23 18:35: WBC 24.80 H, Hgb 9.6 L, Hct 31.4 L, Plt Count 560 H Microbiology Data (last 24 hrs): 01/23/23 18:39 Nasopharnyx Influenza Type A Antigen Screen - Final 01/23/23 18:39 Nasopharnyx Influenza Type B Antigen Screen - Final Assessment And Plan - Plan Physical Exam General: Alert, In no apparent distress HEENT: Atraumatic, EOMI, Sclerae nonicteric Neck: Supple, tracheostomy, Respiratory: Diminished, no crackles Cardiovascular: Regular rate/rhythm, Normal S1 S2 Gastrointestinal: Normal bowel sounds, No tenderness, PEG tube Musculoskeletal: No tenderness Integumentary: No rashes Neurological: Normal speech, Normal affect Sepsis secondary to Aspiration Pneumonia +/- Catheter-Associated Urinary Tract Infection (POA) He met sepsis criteria based on tachycardia, tachypnea, and leukocytosis. CT showed "Moderate alveolar opacities within the lower lobes probably pneumonia" Lactate within normal limits. Blood & urine cultures obtained. Tmax of 100.5. UA suggest UTI Continue zosyn. Follow cultures History of Cerebrovascular Accident Stable, nonverbal Holding tube feeding today due to vomiting. Hypertension Currently normotensive/borderline hypotensive Hold home medications for now Chronic Hypoxic Respiratory Failure s/p Tracheostomy / COPD Oxygen satisfactory on 4L trach collar which is his baseline PRN nebs Hyperglycemia in Type I Diabetes Mellitus He does not appear to be in diabetic ketoacidosis Monitor glucose levels Correction scale insulin NS + KCL @ 75 mL/hr given hypokalemia Chronic Kidney Disease Stage IV Creatinine appears at baseline Hypothyroidism Continue home levoythyroxine Depressive Disorder Continue home escitalopram Benign Prostatic Hyperplasia Continue tamsulosin.
[2023-01-24] MEDS ORDERED: SODIUM CHLORIDE 0.9% 10ML INJ IV PRN (15:28)
[2023-01-24] MEDS: ACETAMINOPHEN 325 MG TABLET PO PRN (17:39)
--- NOTE | 2023-01-24 20:38 | EKG ---
Test Date: 2023-01-23 Test Time: 18:55:41 Bridge Manager: PUJA MEASUREMENT RESULTS: Intervals: Rate: 104 SD: QRSD: 84 QT: 528 QTc: 694 [place]: P: SD: QRS: 87 T: 47 INTERPRETIVE STATEMENTS: Accelerated Junctional rhythm Nonspecific ST abnormality Prolonged QT Abnormal ECG Compared to ECG 12/30/2022 12:13:48 Accelerated junctional rhythm now present ST (T wave) deviation now present Prolonged QT interval now present Sinus rhythm no longer present Electronically Signed On 01-24-23 20:33:06 CDT by Serjio Vazquez
[2023-01-24] MEDS: KCL 20 MEQ/100 mL IVPB 20 MEQ/100 ML BAG IV SCH ×2 (21:06→22:49)
[2023-01-24] MEDS: PANTOPRAZOLE 40 MG INJ IVP SCH (21:09)
[2023-01-25] MEDS: KCL 20 MEQ/100 mL IVPB 20 MEQ/100 ML BAG IV SCH ×4 (00:51→22:12)
[2023-01-25 03:16] LABS: Absolute Lymphocytes (CBC) 1.5 K/uL (0.7-4.9); Lymphocytes % 6.2 % (15.3-44.8); MCV 87.4 fL (80-100); MPV 7.8 fL (7.6-11.3); RBC Red Blood Cell Count 2.52 M/uL (4.33-5.43)
[2023-01-25] MEDS: NS KCL 20MEQ 20 MEQ/1,000 ML BAG IV SCH ×2 (03:40→09:18)
[2023-01-25] MEDS: PIPER TAZO 3.375 GM in NA CHLORIDE 0.9% 100 ML IV SCH ×3 (04:02→21:50)
[2023-01-25] MEDS: INSULIN -REGULAR HUMAN 50 UNIT/0.5 ML ML SQ SCH ×4 (06:05→21:49)
[2023-01-25] MEDS: NEPRO 1,000 ML BOT FT SCH ×4 (08:00→22:14)
[2023-01-25 08:41] LABS: Potassium 3.3 mEq/L (3.5-5.1)
[2023-01-25] MEDS: HEPARIN 5000 UNIT/ML 1 ML VIAL SQ SCH ×2 (08:48→21:50)
[2023-01-25] MEDS: PANTOPRAZOLE 40 MG INJ IVP SCH ×2 (09:18→21:50)
[2023-01-25] MEDS ORDERED: NA CHLORIDE 0.9% 250 ML IV SCH (10:00)
[2023-01-25 10:35] LABS: Potassium 3.3 mEq/L (3.5-5.1)
[2023-01-25] MEDS: D5W 1,000 ML with POTASSIUM CL 20 MEQ IV SCH ×4 (10:37→20:06)
[2023-01-25] MEDS ORDERED: NA CHLORIDE 0.9% 250 ML ONE ×3 (12:16→22:20)
--- NOTE | 2023-01-25 13:22 | P.PN ---
Subjective Date of Service: 01/25/23 Chief Complaint: Pneumonia, UTI, Severe Sepsis Nursing staff report 1 episode of vomiting this morning. No reported diarrhea. Yellow to brown-colored sputum suctioned from his trachea. Physical Examination - Vital Signs Temperature: 98.2 F Blood Pressure: 145/75 Pulse: 91 Respirations: 16 Pulse Ox (%): 93 - Studies Microbiology Data (last 24 hrs): 01/23/23 20:05 Clean Catch Urine [employer] Count - Final >100,000 CFU/ML. 01/23/23 20:05 Clean Catch Urine - Final Assessment And Plan - Plan Physical Exam General: Alert, In no apparent distress HEENT: Atraumatic, EOMI, Sclerae nonicteric Neck: Supple, tracheostomy, Respiratory: Diminished, no crackles Cardiovascular: Regular rate/rhythm, Normal S1 S2 Gastrointestinal: Normal bowel sounds, No tenderness, PEG tube Musculoskeletal: No tenderness Integumentary: No rashes Neurological: Normal speech, Normal affect Sepsis secondary to Aspiration Pneumonia +/- Catheter-Associated Urinary Tract Infection (POA) He met sepsis criteria based on tachycardia, tachypnea, and leukocytosis. CT showed "Moderate alveolar opacities within the lower lobes probably pneumonia" Lactate within normal limits. Blood & urine cultures obtained. Tmax of 100.5. UA suggest UTI. Urine is growing yeast. Blood cultures: No growth to date. Continue zosyn. Follow cultures Infectious disease consult. History of Cerebrovascular Accident Stable, nonverbal Resume tube feeding today due to vomiting. Dietitian consult. Hypertension Patient is hypertensive today. Resume home medications. Chronic Hypoxic Respiratory Failure s/p Tracheostomy / COPD Oxygen satisfactory on 4L trach collar which is his baseline PRN nebs Hyperglycemia in Type I Diabetes Mellitus Blood sugars only mildly elevated today but noted not anion gap metabolic acidosis. Continue correction scale insulin IV hydration. Chronic Kidney Disease Stage IV/hypernatremia Creatinine appears at baseline. Treat hypernatremia with D5 water. Monitor BMP closely Nephrology consult Hypothyroidism Continue home levothyroxine Depressive Disorder Continue home escitalopram Benign Prostatic Hyperplasia Continue tamsulosin.
[2023-01-25] MEDS: ONDANSETRON 4 MG/2 ML VIAL IV PRN (13:26)
[2023-01-25 15:28] LABS: Potassium 3.3 mEq/L (3.5-5.1)
--- NOTE | 2023-01-25 21:56 | P.CNS ---
Date of Consult: 01/25/23 Reason for Consult: Hypernatremia Requesting Physician: enrike campuzano Chief Complaint: Pneumonia, UTI, Severe Sepsis History of Present Illness: Mr. Carrillo is a 57 year old non-verbal male with past medical history of CVA s/p tracheostomy and PEG tube, chronic hypoxic respiratory failure, recurrent aspiration pneumonia, hypothyroidism, type I diabetes mellitus, COPD, hyperlipidemia, chronic indwelling Simmons catheter, and CKD IV who presented to the Emergency Department from snf with nausea, vomiting, and constipation. He denies any abdominal pain. Today his labs are significant for WBC 24.8, hemoglobin 9.6, sodium 146, potassium 2.4, chloride 117, BUN 70, creatinine 2.48, urine positive for UTI. CT showed "Moderate alveolar opacities within the lower lobes probably pneumonia. Cholelithiasis with gallbladder distention. Large amount stool within the colon." He was started on Zosyn in the emergency department. BP stable. Lactate within normal limits. We will admit patient for further management. [id number] 18:47 This 57 yrs old Male presents to ER via Unassigned with complaints of rn nausea/vomiting/constipation. 18:47 The patient presents to the emergency department with nausea, vomiting. Onset: The rn symptoms/episode began/occurred 5 day(s) ago. Possible causes: unknown. The symptoms are aggravated by nothing. The symptoms are alleviated by nothing. Associated signs and symptoms: Pertinent positives: constipation, nausea, vomiting, Pertinent negatives: fever, GI bleeding. Severity of symptoms: At their worst the symptoms were moderate in the emergency department the symptoms are unchanged. The patient has not experienced similar symptoms in the past. The patient has not recently seen a physician. Sent from [facility] for constipation for 5 days, and began vomiting today. + low grade fever. Patient denies abd pain.. Allergies Sulfa (Sulfonamide Antibiotics) Allergy (Verified 05/13/19 16:25) Itching/Hives/Rash Home medications list reviewed: Yes Home Medications: Acetaminophen 2 tab FT Q4H PRN 10/22/22 Amlodipine [Norvasc*] 1 tab FT DAILY 10/22/22 Atorvastatin Calcium [Lipitor*] 1 tab FT BEDTIME 10/22/22 Budesonide [Pulmicort*] 2 ml IH Q12H 10/22/22 Ferrous Sulfate 7.5 ml FT Q12H 10/22/22 Lactulose [Enulose] 30 ml FT Q6H PRN 10/22/22 Levothyroxine Sodium 1 tab FT DAILY 10/22/22 Omeprazole 20 mg FT DAILY 10/22/22 Ondansetron [Zofran (Odt)*] 1 tab FT Q6H PRN 10/22/22 Tamsulosin HCl [Flomax] 1 cap FT BEDTIME 10/22/22 Nepro 240 ml FT QID bot 10/24/22 Aspirin [Aspirin EC 81 MG] 81 mg FT DAILY 12/16/22 Escitalopram Oxalate [Lexapro] 1 tab FT DAILY 12/16/22 Ipratropium/Albuterol Sulfate [Iprat-Albut 0.5-3(2.5) mg/3 ml] 3 ml IH Q6H 12/16/22 Lactobacillus Rhamnosus GG [Culturelle] 1 cap FT BID 12/16/22 Insulin Glargine,Hum.rec.anlog [Semglee] 15 unit SQ Q12HR ml 12/27/22 Insulin -Regular Human [Novolin -R*] See Protocol SQ Q6HR@0000,0600,1200,1800 ml 01/13/23 Insulin Lispro 0 unit SQ Q6H 01/24/23 Potassium Chloride 10 meq FT DAILY 01/24/23 Ticagrelor [Brilinta*] 90 mg FT BID 01/25/23 carvediloL [Coreg*] 6.25 mg FT BID 01/25/23 - Past Medical/Surgical History Diabetic: Yes -: DM I -: CKD IV (Dr. Edmonds) -: CAD -: Hypertension -: Hyperlipidemia -: PVD -: History TIA/CVA -: Congestive Heart Failure -: Appendectomy -: Left below-knee amputation -: Multiple surgeries to the right lower extremity -: Right foot all toes amputated- february 2019 Psychosocial/ Personal History: Patient lives at [facility]. - Family History Mother Medical History: Cancer - Social History Smoking Status: Unknown if ever smoked Alcohol use: Yes CD- Drugs: No Caffeine use: Yes Place of Residence: Home Review of Systems is unable to be obtained Physical Examination Temp Pulse Resp BP Pulse Ox 98.7 F 100 H 22 H 133/65 97 01/25/23 20:00 01/25/23 20:00 01/25/23 20:00 01/25/23 20:00 01/25/23 20:00 General: In no apparent distress, Cooperative HEENT: Atraumatic Neck: Supple Respiratory: Normal air movement Cardiovascular: No edema, Regular rate/rhythm Gastrointestinal: Soft and benign, Non-distended Musculoskeletal: No clubbing, No contractures Integumentary: No rashes, No cyanosis Blood work reviewed in the chart. Imagings Data: [id number] EXAM DESCRIPTION: RADChest Single View01/23/2023 7:34 pm CLINICAL HISTORY: Chest pain COMPARISON: January 13, 2023 FINDINGS: No significant change bibasilar lung opacities. Chronic elevation right hemidiaphragm. Heart is normal size. Tracheostomy tube in place IMPRESSION: Bibasilar lung opacities probably pneumonia [id number] EXAM DESCRIPTION: CT - Abdomen Pelvis Wo Contrast - 01/23/2023 7:47 pm CLINICAL HISTORY: Abdominal pain COMPARISON: November 2022 TECHNIQUE: Computed axial tomography of the abdomen and pelvis was obtained. IV and oral contrast were not requested. All CT scans are performed using dose optimization technique as appropriate and may include automated exposure control or mA/KV adjustment according to patient size. FINDINGS: The evaluation of solid organs, vessels and bowel is limited secondary to the lack of contrast administration. Opacities within the lower lobes have the appearance of pneumonia Gallbladder is distended. Stone within the gallbladder neck. Percutaneous tube within the stomach. The liver, spleen, pancreas, adrenals and kidneys appear grossly normal. Large amount stool within the colon . There is no evidence of diverticulitis. IMPRESSION: Moderate alveolar opacities within the lower lobes probably pneumonia Cholelithiasis with gallbladder distention Large amount stool within the colon Conclusions/Impression: CKD IV with proteinuria -No NSAIDs Hypernatremia -Continue IVF with D5W Hypokalemia -Replete potassium as ordered Metabolic Acidosis -Start bicarb through PEG HTN with CKD -Monitor BP DM II with CKD -RISS -Continue insulin glargine Hypoalbuminemia Severe protein malnutrition with decreased functional ability PEG -Continue Nepro -PT as tolerated Anemia in chronic illness -Monitor H&H -Transfuse PRBC as ordered Jeanne Cystitis -Consider Diflucan Case reviewed with Dr. Campuzano Thank you kindly for the consultation
[2023-01-25 22:25] LABS: Potassium 3.8 mEq/L (3.5-5.1)
[2023-01-25] MEDS ORDERED: GLUCAGON 1 MG/VIAL IM PRN (22:48)
[2023-01-25] MEDS ORDERED: D50W 25 GM/50 ML SYRINGE IV PRN (22:48)
[2023-01-25] MEDS ORDERED: INSULIN GLARGINE 100 UNIT/ML SQ ONE (22:56)
--- NOTE | 2023-01-25 22:58 | P.PN ---
Date of Service: 01/25/23 Critical labs called to me- CO2 9 and glucose 430. I contacted water purification chemist nephrology who recommended pausing D5W, administering 20 units long acting insulin, and free water via PEG every 4 hours. I also increased sliding scale insulin from mild to aggressive. Will repeat BMP in 4 hours to reassess.
[2023-01-25] MEDS ORDERED: INSULIN -REGULAR HUMAN 50 UNIT/0.5 ML ML IV ONE (23:00)
[2023-01-26] MEDS: INSULIN -REGULAR HUMAN 50 UNIT/0.5 ML ML SQ SCH ×4 (01:08→18:08)
[2023-01-26] MEDS: KCL 20 MEQ/100 mL IVPB 20 MEQ/100 ML BAG IV SCH (02:18)
[2023-01-26] MEDS ORDERED: NA CHLORIDE 0.9% 250 ML ONE (02:26)
[2023-01-26 02:49] LABS: Absolute Lymphocytes (CBC) 1.3 K/uL (0.7-4.9); Hematocrit 33.7 % (39.6-49.0); Lymphocytes % 4.7 % (15.3-44.8); MCV 86.9 fL (80-100); MPV 8.2 fL (7.6-11.3); RBC Red Blood Cell Count 3.87 M/uL (4.33-5.43)
[2023-01-26 03:06] LABS: Albumin 1.6 g/dL (3.4-5.0); Bilirubin Total 0.3 mg/dL (0.2-1.0); Magnesium 2.1 mg/dL (1.6-2.4); Phosphorus 3.2 mg/dL (2.5-4.9); Potassium 3.3 mEq/L (3.5-5.1); Protein, Total 6.5 g/dL (6.4-8.2); Uric Acid 10.2 mg/dL (3.5-7.2)
[2023-01-26] MEDS ORDERED: INSULIN -REGULAR HUMAN 50 UNIT/0.5 ML ML IV ONE (03:17)
[2023-01-26 03:40] LABS: C.diff Antigen/Toxin Ag neg : Tox neg (NEG : NEG)
[2023-01-26] MEDS: PIPER TAZO 3.375 GM in NA CHLORIDE 0.9% 100 ML IV SCH (03:53)
[2023-01-26 06:36] LABS: Potassium 3.4 mEq/L (3.5-5.1)
[2023-01-26] MEDS: HEPARIN 5000 UNIT/ML 1 ML VIAL SQ SCH ×2 (08:50→21:45)
[2023-01-26] MEDS: PANTOPRAZOLE 40 MG INJ IVP SCH ×2 (08:50→21:44)
[2023-01-26] MEDS: NEPRO 1,000 ML BOT FT SCH ×4 (08:51→21:00)
[2023-01-26] MEDS: SODIUM BICARB 325 MG TAB PO SCH ×4 (08:51→21:45)
[2023-01-26] MEDS: INSULIN GLARGINE 100 UNIT/ML SQ SCH ×2 (08:51→21:45)
[2023-01-26] MEDS ORDERED: POTASSIUM 25 MEQ EFFERV TAB PO ONE (09:00)
--- NOTE | 2023-01-26 09:55 | P.CNS ---
Date of Consult: 01/26/23 Reason for Consult: sepsis, UTI, pneumonia Chief Complaint: Pneumonia, UTI, Severe Sepsis History of Present Illness: Patient is a 57 yo male with a history of CVA, chronic hypoxic respiratory failure s/p tracheostomy and PEG tube, recurrent aspiration pneumonia, chronic indwelling ortega catheter, CKD4, hypothyroidism and diabetes mellitus who presented to the ED from group home with complaints of nausea, vomiting and constipation. ED workup revealing urinary tract infection and pneumonia; WBC 24.8. ID consulted for sepsis, UTI. Allergies Sulfa (Sulfonamide Antibiotics) Allergy (Verified 05/13/19 16:25) Itching/Hives/Rash Home medications list reviewed: Yes Home Medications: Acetaminophen 2 tab FT Q4H PRN 10/22/22 Amlodipine [Norvasc*] 1 tab FT DAILY 10/22/22 Atorvastatin Calcium [Lipitor*] 1 tab FT BEDTIME 10/22/22 Budesonide [Pulmicort*] 2 ml IH Q12H 10/22/22 Ferrous Sulfate 7.5 ml FT Q12H 10/22/22 Lactulose [Enulose] 30 ml FT Q6H PRN 10/22/22 Levothyroxine Sodium 1 tab FT DAILY 10/22/22 Omeprazole 20 mg FT DAILY 10/22/22 Ondansetron [Zofran (Odt)*] 1 tab FT Q6H PRN 10/22/22 Tamsulosin HCl [Flomax] 1 cap FT BEDTIME 10/22/22 Nepro 240 ml FT QID bot 10/24/22 Aspirin [Aspirin EC 81 MG] 81 mg FT DAILY 12/16/22 Escitalopram Oxalate [Lexapro] 1 tab FT DAILY 12/16/22 Ipratropium/Albuterol Sulfate [Iprat-Albut 0.5-3(2.5) mg/3 ml] 3 ml IH Q6H 12/16/22 Lactobacillus Rhamnosus GG [Culturelle] 1 cap FT BID 12/16/22 Insulin Glargine,Hum.rec.anlog [Semglee] 15 unit SQ Q12HR ml 12/27/22 Insulin -Regular Human [Novolin -R*] See Protocol SQ Q6HR@0000,0600,1200,1800 ml 01/13/23 Insulin Lispro 0 unit SQ Q6H 01/24/23 Potassium Chloride 10 meq FT DAILY 01/24/23 Ticagrelor [Brilinta*] 90 mg FT BID 01/25/23 carvediloL [Coreg*] 6.25 mg FT BID 01/25/23 - Past Medical/Surgical History Diabetic: Yes -: DM I -: CKD IV (Dr. Edmonds) -: CAD -: Hypertension -: Hyperlipidemia -: PVD -: History TIA/CVA -: Congestive Heart Failure -: Appendectomy -: Left below-knee amputation -: Multiple surgeries to the right lower extremity -: Right foot all toes amputated- february 2019 Psychosocial/ Personal History: Patient lives at [facility]. - Family History Mother Medical History: Cancer - Social History Smoking Status: Unknown if ever smoked Alcohol use: Yes CD- Drugs: No Caffeine use: Yes Place of Residence: Home Review of Systems 10-point ROS is otherwise unremarkable Respiratory: Other (trach) Genitourinary: Other (chronic ortega) Physical Examination Temp Pulse Resp BP Pulse Ox 98.2 F 91 H 18 146/68 H 93 01/26/23 08:00 01/26/23 08:00 01/26/23 08:00 01/26/23 08:00 01/26/23 08:00 General: Alert, In no apparent distress HEENT: Atraumatic, Normocephalic Neck: Other (tracheostomy) Respiratory: Diminished, Other (trach collar 4L) Cardiovascular: No edema, Normal pulses Gastrointestinal: Normal bowel sounds, Other (PEG tube) Musculoskeletal: No clubbing (left sided weakness), Other (Left BKA; amputation of all toes right foot) Integumentary: Pressure ulcer (sacrum stage 2) Urinary: Ortega catheter (draining yellow urine) Laboratory Data - Reviewed Microbiology Data - Reviewed Imagings Data: - Reviewed Medication List: Reviewed Conclusions/Impression: Problem List Chronic respiratory failure s/p tracheostomy Chronic ortega catheter Hypertension Diabetes Mellitus Type I Recurrent Aspiration pneumonia Sepsis Hx CVA Anemia Hypothyroidism CKD stage IV Pneumonia - CT Abdomen/Pelvis 01/23: "Moderate alveolar opacities within the lower lobes probably pneumonia. Cholelithiasis with gallbladder distention. Large amount stool within the colon." - XR chest 01/23: "Bibasilar lung opacities probably pneumonia" - Influenza A&B Negative - Blood cultures 01/23: No growth to date - Leukocytosis (WBC 28.1). Afebrile. - Currently on Zosyn (started 01/24) Urinary Tract Infection - Urinalysis 01/23: LE 500, RBC >50, WBC >50, Bacteria 20-50, Moderate yeast - Urine culture 01/23: 4+ yeast NOT gavino albicans Recommendations - Zosyn discontinued. Started on Merrem and Vancomycin. Pharmacy consulted for renal dose adjustments. - Sputum culture ordered, pending. - monitor WBC and fever trends - Continue nebulizer treatments - Supportive care and nutritional support as needed - Aspiration precautions ID will follow up and monitor patient closely. Case discussed with Flavio Merrill
[2023-01-26] MEDS ORDERED: D5W 1,000 ML with POTASSIUM CL 20 MEQ IV SCH ×4 (11:00→21:15)
[2023-01-26] MEDS ORDERED: D10W 250 ML BAG IV PRN (11:05)
--- NOTE | 2023-01-26 11:23 | P.PN ---
Date of Service: 01/26/23 Vital Signs Temp Pulse Resp BP Pulse Ox 98.2 F 91 H 18 146/68 H 93 01/26/23 08:00 01/26/23 08:00 01/26/23 08:00 01/26/23 08:00 01/26/23 08:00 Medications Acetaminophen (Acetaminophen 325 Mg Tablet) 650 mg PO Q6H PRN PRN Reason: Pain scale 2-4 (Mild) Last Admin: 01/24/23 17:39 Dose: 650 mg Albuterol Sulfate (Albuterol 2.5 Mg/3 Ml Neb Radha) 2.5 mg NEB [id number] PRN PRN Reason: SHORTNESS OF BREATH Dextrose (D10w 250 Ml Bag) 125 ml IV PRN PRN; Protocol PRN Reason: HYPOGLYCEMIA Enteral Nutritional Formula (Nepro 1,000 Ml Bot) 237 ml FT QID@0800,1200,1700,2100 [facility] Last Admin: 01/26/23 08:51 Dose: 237 ml Glucagon (Glucagon 1 Mg/Vial) 1 mg IM 1X PRN; Protocol PRN Reason: HYPOGLYCEMIA Heparin Sodium (Porcine) (Heparin 5000 Unit/Ml 1 Ml Vial) 5,000 unit SQ Q12HR [facility] Last Admin: 01/26/23 08:50 Dose: 5,000 unit Piperacillin Sod/Tazobactam (Sod 3.375 gm/ Sodium Chloride) 100 mls @ 25 mls/hr IV Q8H [facility]; Protocol Last Admin: 01/26/23 03:53 Dose: 100 mls Sodium Chloride (Sodium Chloride) 250 mls @ 0 mls/hr IV .Q0M [facility] Potassium Chloride 20 meq/ (Dextrose/Water) 1,010 mls @ 125 mls/hr IV .Q8H5M [facility] Insulin Glargine (Insulin Glargine 100 Unit/Ml) 15 unit SQ Q12HR [facility] Last Admin: 01/26/23 08:51 Dose: 15 unit Insulin Human Regular (Insulin -Regular Human 50 Unit/0.5 Ml Ml) 0 unit SQ Q6HR [facility]; Protocol Last Admin: 01/26/23 05:25 Dose: 8 unit Ipratropium [place] (Ipratropium Brom 0.5mg/2.5ml) 0.5 mg NEB [id number] PRN PRN Reason: SHORTNESS OF BREATH Ondansetron HCl (Ondansetron 4 Mg/2 Ml Vial) 4 mg IV Q8HP PRN PRN Reason: NAUSEA / VOMITING Last Admin: 01/25/23 13:26 Dose: 4 mg Pantoprazole Sodium (Pantoprazole 40 Mg Inj) 40 mg IVP Q12HR [facility]; Protocol Last Admin: 01/26/23 08:50 Dose: 40 mg Sodium Bicarbonate (Sodium Bicarb 325 Mg Tab) 650 mg PO QID [facility] Last Admin: 01/26/23 08:51 Dose: 650 mg Sodium Chloride (Flush Normal Saline 10 Ml) 10 ml IV BID [facility] Last Admin: 01/26/23 08:51 Dose: 10 ml Sodium Chloride (Sodium Chloride 0.9% 10ml Inj) 10 ml IV UD PRN PRN Reason: Diluant Microbiology Results 01/23/23 20:05 Clean Catch Urine [place] Count - Final >100,000 CFU/ML. 01/23/23 20:05 Clean Catch Urine - Final 01/23/23 19:25 Blood - Blood Aerobic Blood Culture - Preliminary No growth in 24 hours. 01/23/23 19:25 Blood - Blood Anaerobic Blood Culture - Preliminary No growth in 24 hours. 01/23/23 19:25 Blood - Blood Aerobic Blood Culture - Preliminary No growth in 24 hours. 01/23/23 19:25 Blood - Blood Anaerobic Blood Culture - Preliminary No growth in 24 hours. 01/23/23 18:39 Nasopharnyx Influenza Type A Antigen Screen - Final 01/23/23 18:39 Nasopharnyx Influenza Type B Antigen Screen - Final Assessment/ Plan: Nephrology No dyspnea No chest pain No acute events overnight Vitals, medications, blood work and imaging reviewed in the chart. General: In no apparent distress, Cooperative HEENT: Atraumatic Neck: Supple. Trach. Respiratory: Normal air movement Cardiovascular: No edema, Regular rate/rhythm Gastrointestinal: Soft and benign, Non-distended Musculoskeletal: No clubbing, No contractures Left BKA Integumentary: No rashes, No cyanosis Simmons medium Blood work reviewed in the chart. Imagings Data: EXAM DESCRIPTION: Cesar Single View01/23/2023 7:34 pm CLINICAL HISTORY: Chest pain COMPARISON: January 13, 2023 FINDINGS: No significant change bibasilar lung opacities. Chronic elevation right hemidiaphragm. Heart is normal size. Tracheostomy tube in place IMPRESSION: Bibasilar lung opacities probably pneumonia EXAM DESCRIPTION: CT - Abdomen Pelvis Wo Contrast - 01/23/2023 7:47 pm CLINICAL HISTORY: Abdominal pain COMPARISON: November 2022 TECHNIQUE: Computed axial tomography of the abdomen and pelvis was obtained. IV and oral contrast were not requested. All CT scans are performed using dose optimization technique as appropriate and may include automated exposure control or mA/KV adjustment according to patient size. FINDINGS: The evaluation of solid organs, vessels and bowel is limited secondary to the lack of contrast administration. Opacities within the lower lobes have the appearance of pneumonia Gallbladder is distended. Stone within the gallbladder neck. Percutaneous tube within the stomach. The liver, spleen, pancreas, adrenals and kidneys appear grossly normal. Large amount stool within the colon . There is no evidence of diverticulitis. IMPRESSION: Moderate alveolar opacities within the lower lobes probably pneumonia Cholelithiasis with gallbladder distention Large amount stool within the colon Conclusions/Impression: CKD IV with proteinuria -No NSAIDs Hypernatremia -Increase IVF with D5W -Repeat BMP at 1700 today Hypokalemia -Replete potassium as ordered Metabolic Acidosis -Continue bicarb through PEG HTN with CKD -Monitor BP DM II with CKD -RISS -Continue insulin glargine Hypoalbuminemia Severe protein malnutrition with decreased functional ability PEG -Continue Nepro -PT as tolerated Anemia in chronic illness -Monitor H&H -Transfuse PRBC as ordered Jeanne Cystitis -Consider Diflucan
[2023-01-26 11:50] LABS: Potassium 3.4 mEq/L (3.5-5.1)
[2023-01-26] MEDS ORDERED: VANCOMYCIN 1.75 GM in NA CHLORIDE 0.9% 500 ML IVPB ONE (12:00)
--- NOTE | 2023-01-26 12:23 | P.PN ---
Subjective Date of Service: 01/26/23 Chief Complaint: Pneumonia, UTI, Severe Sepsis No issues overnight Patient has been suctioning out bile colored fluid from his mouth No recorded fever. Physical Examination - Vital Signs Temperature: 98.2 F Blood Pressure: 146/68 Pulse: 91 Respirations: 18 Pulse Ox (%): 93 Assessment And Plan - Plan Physical Exam General: Alert, In no apparent distress HEENT: Atraumatic, EOMI, Sclerae nonicteric Neck: Supple, tracheostomy, Respiratory: Diminished, no crackles Cardiovascular: Regular rate/rhythm, Normal S1 S2 Gastrointestinal: Normal bowel sounds, No tenderness, PEG tube Musculoskeletal: No tenderness Integumentary: No rashes Neurological: Normal speech, Normal affect Sepsis secondary to Aspiration Pneumonia +/- Catheter-Associated Urinary Tract Infection (POA) He met sepsis criteria based on tachycardia, tachypnea, and leukocytosis. CT showed "Moderate alveolar opacities within the lower lobes probably pneumonia" Lactate within normal limits. Blood & urine cultures obtained. Tmax of 100.5. UA suggest UTI. Urine is growing yeast. Blood cultures: No growth to date. Infectious disease input appreciated. Antibiotics changed to vancomycin and Merrem. Follow cultures History of Cerebrovascular Accident Stable, nonverbal. Tube feedings on hold due to vomiting and regurgitation Dietitian consulted. Hypertension Continue home antihypertensives Chronic Hypoxic Respiratory Failure s/p Tracheostomy / COPD Oxygen satisfactory on 4L trach collar which is his baseline PRN nebs Hyperglycemia in Type I Diabetes Mellitus Continue correction scale insulin. None anion gap metabolic acidosis. IV hydration. Chronic Kidney Disease Stage IV/hypernatremia/metabolic acidosis Creatinine appears at baseline. Treat hypernatremia with D5 water. Monitor BMP closely Nephrology input appreciated. Hypothyroidism Continue home levothyroxine Depressive Disorder Continue home escitalopram Benign Prostatic Hyperplasia Continue tamsulosin. DVT prophylaxis Heparin subQ
[2023-01-26] MEDS: ONDANSETRON 4 MG/2 ML VIAL IV PRN (13:50)
[2023-01-26 17:52] LABS: Potassium 3.3 mEq/L (3.5-5.1)
[2023-01-26] MEDS ORDERED: POTASSIUM 25 MEQ EFFERV TAB FT ONE (21:14)
[2023-01-26] MEDS: D5W 1,000 ML with POTASSIUM CL 20 MEQ IV SCH ×2 (21:15)
[2023-01-26] MEDS: Meropenem 500 MG in NA CHLORIDE 0.9% 100 ML IV SCH (21:44)
[2023-01-26] MEDS ORDERED: D5W 0 ML IV ONE (22:07)
[2023-01-27] MEDS: INSULIN -REGULAR HUMAN 50 UNIT/0.5 ML ML SQ SCH ×4 (00:22→18:43)
[2023-01-27 03:01] LABS: Absolute Lymphocytes (CBC) 1.9 K/uL (0.7-4.9); Hematocrit 33.1 % (39.6-49.0); Lymphocytes % 6.4 % (15.3-44.8); MCV 85.6 fL (80-100); MPV 8.4 fL (7.6-11.3); RBC Red Blood Cell Count 3.87 M/uL (4.33-5.43)
[2023-01-27] MEDS: NEPRO 1,000 ML BOT FT SCH ×2 (08:00→11:41)
[2023-01-27] MEDS ORDERED: SODIUM CHLORIDE 0.9% 10ML INJ IV PRN (08:44)
[2023-01-27] MEDS: D5W 1,000 ML with POTASSIUM CL 20 MEQ IV SCH ×6 (08:58→21:28)
[2023-01-27] MEDS: SODIUM BICARB 325 MG TAB PO SCH ×4 (08:59→21:37)
[2023-01-27] MEDS: INSULIN GLARGINE 100 UNIT/ML SQ SCH ×2 (08:59→21:33)
[2023-01-27] MEDS: HEPARIN 5000 UNIT/ML 1 ML VIAL SQ SCH ×2 (08:59→21:32)
[2023-01-27] MEDS: Meropenem 500 MG in NA CHLORIDE 0.9% 100 ML IV SCH ×2 (09:00→21:31)
[2023-01-27] MEDS: PANTOPRAZOLE 40 MG INJ IVP SCH ×2 (09:00→21:31)
[2023-01-27] MEDS ORDERED: PANTOPRAZOLE 40 MG INJ IVP SCH (09:00)
--- NOTE | 2023-01-27 09:45 | P.PN ---
Date of Service: 01/27/23 Chief Complaint: Pneumonia, UTI, Severe Sepsis Subjective: No new changes Patient in bed, no new changes, no cardiopulmonary distress noted. Reports abdominal pain. Physical Examination Temp Pulse Resp BP Pulse Ox 97.5 F 94 H 14 159/81 H 97 01/27/23 08:00 01/27/23 08:00 01/27/23 08:00 01/27/23 08:00 01/27/23 08:00 General: Alert, In no apparent distress HEENT: Atraumatic, Normocephalic Neck: Other (tracheostomy) Respiratory: Diminished, Other (trach collar 4L) Cardiovascular: No edema, Normal pulses Gastrointestinal: Normal bowel sounds, Other (PEG tube) Musculoskeletal: No clubbing (left sided weakness), Other (Left BKA; amputation of all toes right foot) Integumentary: Pressure ulcer (sacrum stage 2) Urinary: Ortega catheter (draining yellow urine) Laboratory Data - Reviewed Microbiology Data - Reviewed Imagings Data: - CT Abdomen 01/23: FINDINGS: The evaluation of solid organs, vessels and bowel is limited secondary to the lack of contrast administration. Opacities within the lower lobes have the appearance of pneumonia. Gallbladder is distended. Stone within the gallbladder neck. Percutaneous tube within the stomach. The liver, spleen, pancreas, adrenals and kidneys appear grossly normal. Large amount stool within the colon . There is no evidence of diverticulitis Medication List: Reviewed Assessment and Plan Problem List Chronic respiratory failure s/p tracheostomy Chronic ortega catheter Hypertension Diabetes Mellitus Type I Recurrent Aspiration pneumonia Sepsis Hx CVA Anemia Hypothyroidism CKD stage IV Severe PCM Pneumonia - CT Abdomen/Pelvis 01/23: "Moderate alveolar opacities within the lower lobes probably pneumonia. Cholelithiasis with gallbladder distention. Large amount stool within the colon." - XR chest 01/23: "Bibasilar lung opacities probably pneumonia" - Influenza A&B Negative - Blood cultures 01/23: No growth to date - Leukocytosis (WBC uptrending 28.1 -> 30.1 - on 01/27). Afebrile. - Currently on Merrem and Vancomycin (started 01/26) Fungal UTI - Urinalysis 01/23: LE 500, RBC >50, WBC >50, Moderate WBC clumps, Bacteria 20- 50, Moderate yeast - Urine culture 01/23: 4+ yeast NOT gavino albicans - Patient has been treated with fluconazole x 14 days recently. - Will start the patient on Micafungin for 5 days. Recommendations - Continue Merrem and Vancomycin for now. Pharmacy consulted for renal dose adjustments. - Urine culture with 4+ yeast: Starting on Micafungin x 5 days. - Sputum culture ordered, pending. - Strict blood glucose control - Aspiration precautions - Monitor WBC and fever trends - Continue nebulizer treatments - Supportive care and nutritional support as needed ID will follow up and monitor patient closely. Case discussed with Flavio Merrill
[2023-01-27 12:16] LABS: Albumin 1.4 g/dL (3.4-5.0); Bilirubin Total 0.2 mg/dL (0.2-1.0); Potassium 3.6 mEq/L (3.5-5.1); Protein, Total 6.4 g/dL (6.4-8.2)
--- NOTE | 2023-01-27 12:39 | P.PN ---
Subjective Date of Service: 01/27/23 Chief Complaint: Pneumonia, UTI, Severe Sepsis No issues overnight Patient has been suctioning out bile colored fluid from his mouth He has also been experiencing copious secretion from the tracheostomy. No recorded fever. Physical Examination - Vital Signs Temperature: 97.5 F Blood Pressure: 159/81 Pulse: 94 Respirations: 14 Pulse Ox (%): 97 Assessment And Plan - Plan Physical Exam General: Alert, In no apparent distress Neck: Supple, tracheostomy, Respiratory: Diminished, no crackles Cardiovascular: Regular rate/rhythm, Normal S1 S2 Gastrointestinal: Normal bowel sounds, No tenderness, PEG tube Musculoskeletal: No tenderness Integumentary: No rashes Neurological: Normal speech, Normal affect Sepsis secondary to Aspiration Pneumonia +/- Catheter-Associated Urinary Tract Infection (POA) CT showed "Moderate alveolar opacities within the lower lobes probably pneumonia" Lactate within normal limits. Blood & urine cultures obtained. Tmax of 100.5. UA suggest UTI. Urine is growing yeast. Copious tracheal secretions-light green color Blood cultures: No growth to date. Infectious disease is following. Antibiotics changed to vancomycin and Merrem. Micafungin added to treat yeast Follow cultures History of Cerebrovascular Accident Stable, nonverbal. No more vomiting. Dietitian consulted. Tube feeding as tolerated Hypertension Continue home antihypertensives Chronic Hypoxic Respiratory Failure s/p Tracheostomy / COPD Oxygen satisfactory on 4L trach collar which is his baseline PRN nebs Hyperglycemia in Type I Diabetes Mellitus Continue correction scale insulin. None anion gap metabolic acidosis. IV hydration. Chronic Kidney Disease Stage IV/hypernatremia/metabolic acidosis Creatinine appears at baseline. Treat hypernatremia with D5 water. Monitor BMP closely Nephrology input appreciated. Hypothyroidism Continue home levothyroxine Depressive Disorder Continue home escitalopram Benign Prostatic Hyperplasia Continue tamsulosin. GERD/Bile acid reflux Patient started on Protonix IV Sucralfate via PEG. DVT prophylaxis Heparin subQ Goals of care Recent multiple hospitalizations for sepsis, DKA, renal failure, UTI and pneumonia. Family would like to proceed with hospice. Social service consulted to assist with arrangement for hospice in the half-way
[2023-01-27] MEDS: SUCRALFATE 1GM/10ML UCUP FT SCH ×3 (13:45→21:00)
[2023-01-27] MEDS: VITAL AF 1,000 ML BOT FT SCH ×2 (17:32→21:00)
[2023-01-27] MEDS: MICAFUNGIN SODIUM 100 MG in NA CHLORIDE 0.9% 100 ML IV SCH (17:42)
[2023-01-27] MEDS: Banana Flakes/T-Galactooligos 1 Dose Packet FT SCH (21:00)
--- NOTE | 2023-01-27 21:35 | P.PN ---
Date of Service: 01/27/23 Vital Signs Temp Pulse Resp BP Pulse Ox 97.7 F 108 H 19 145/79 H 96 01/27/23 20:00 01/27/23 20:00 01/27/23 20:00 01/27/23 20:00 01/27/23 20:00 Medications Acetaminophen (Acetaminophen 325 Mg Tablet) 650 mg PO Q6H PRN PRN Reason: Pain scale 2-4 (Mild) Last Admin: 01/24/23 17:39 Dose: 650 mg Albuterol Sulfate (Albuterol 2.5 Mg/3 Ml Neb Radha) 2.5 mg NEB [id number] PRN PRN Reason: SHORTNESS OF BREATH Dextrose (D10w 250 Ml Bag) 125 ml IV PRN PRN; Protocol PRN Reason: HYPOGLYCEMIA Glucagon (Glucagon 1 Mg/Vial) 1 mg IM 1X PRN; Protocol PRN Reason: HYPOGLYCEMIA Heparin Sodium (Porcine) (Heparin 5000 Unit/Ml 1 Ml Vial) 5,000 unit SQ Q12HR [facility] Last Admin: 01/27/23 08:59 Dose: 5,000 unit Sodium Chloride (Sodium Chloride) 250 mls @ 0 mls/hr IV .Q0M [facility] Meropenem 500 mg/ Sodium (Chloride) 100 mls @ 200 mls/hr IV Q12HR [facility] Last Admin: 01/27/23 09:00 Dose: 100 mls Vancomycin HCl 1.25 gm/ Sodium (Chloride) 250 mls @ 125 mls/hr IVPB Q36H [facility]; Protocol Micafungin Sodium 100 mg/ (Sodium Chloride) 100 mls @ 100 mls/hr IV DAILY [facility] Stop: 01/31/23 09:59 Last Admin: 01/27/23 17:42 Dose: 100 mls Potassium Chloride 20 meq/ (Dextrose/Water) 1,010 mls @ 125 mls/hr IV .Q8H5M [facility] Insulin Glargine (Insulin Glargine 100 Unit/Ml) 15 unit SQ Q12HR [facility] Last Admin: 01/27/23 08:59 Dose: 15 unit Insulin Human Regular (Insulin -Regular Human 50 Unit/0.5 Ml Ml) 0 unit SQ Q6HR [facility]; Protocol Last Admin: 01/27/23 18:43 Dose: 8 unit Ipratropium [place] (Ipratropium Brom 0.5mg/2.5ml) 0.5 mg NEB [id number] PRN PRN Reason: SHORTNESS OF BREATH Ondansetron HCl (Ondansetron 4 Mg/2 Ml Vial) 4 mg IV Q8HP PRN PRN Reason: NAUSEA / VOMITING Last Admin: 01/26/23 13:50 Dose: 4 mg Pantoprazole Sodium (Pantoprazole 40 Mg Inj) 40 mg IVP Q12HR [facility]; Protocol Last Admin: 01/27/23 09:00 Dose: 40 mg Sodium Bicarbonate (Sodium Bicarb 325 Mg Tab) 650 mg PO QID [facility] Last Admin: 01/27/23 17:31 Dose: 650 mg Sodium Chloride (Flush Normal Saline 10 Ml) 10 ml IV BID [facility] Last Admin: 01/27/23 09:01 Dose: 10 ml Sodium Chloride (Sodium Chloride 0.9% 10ml Inj) 10 ml IV UD PRN PRN Reason: Diluant Sucralfate (Sucralfate 1gm/10ml Ucup) 1 gm FT QID [facility] Last Admin: 01/27/23 17:32 Dose: 1 gm Microbiology Results 01/23/23 20:05 Clean Catch Urine [place] Count - Final >100,000 CFU/ML. 01/23/23 20:05 Clean Catch Urine - Final 01/23/23 19:25 Blood - Blood Aerobic Blood Culture - Preliminary No growth in 24 hours. 01/23/23 19:25 Blood - Blood Anaerobic Blood Culture - Preliminary No growth in 24 hours. 01/23/23 19:25 Blood - Blood Aerobic Blood Culture - Preliminary No growth in 24 hours. 01/23/23 19:25 Blood - Blood Anaerobic Blood Culture - Preliminary No growth in 24 hours. 01/23/23 18:39 Nasopharnyx Influenza Type A Antigen Screen - Final 01/23/23 18:39 Nasopharnyx Influenza Type B Antigen Screen - Final Assessment/ Plan: Nephrology No dyspnea No chest pain No acute events overnight Vitals, medications, blood work and imaging reviewed in the chart. General: In no apparent distress, Cooperative HEENT: Atraumatic Neck: Supple. Trach. Respiratory: Normal air movement Cardiovascular: No edema, Regular rate/rhythm Gastrointestinal: Soft and benign, Non-distended PEG Musculoskeletal: No clubbing, No contractures Left BKA Integumentary: No rashes, No cyanosis Simmons medium Blood work reviewed in the chart. Imagings Data: EXAM DESCRIPTION: Cesar Single View01/23/2023 7:34 pm CLINICAL HISTORY: Chest pain COMPARISON: January 13, 2023 FINDINGS: No significant change bibasilar lung opacities. Chronic elevation right hemidiaphragm. Heart is normal size. Tracheostomy tube in place IMPRESSION: Bibasilar lung opacities probably pneumonia EXAM DESCRIPTION: CT - Abdomen Pelvis Wo Contrast - 01/23/2023 7:47 pm CLINICAL HISTORY: Abdominal pain COMPARISON: November 2022 TECHNIQUE: Computed axial tomography of the abdomen and pelvis was obtained. IV and oral contrast were not requested. All CT scans are performed using dose optimization technique as appropriate and may include automated exposure control or mA/KV adjustment according to patient size. FINDINGS: The evaluation of solid organs, vessels and bowel is limited secondary to the lack of contrast administration. Opacities within the lower lobes have the appearance of pneumonia Gallbladder is distended. Stone within the gallbladder neck. Percutaneous tube within the stomach. The liver, spleen, pancreas, adrenals and kidneys appear grossly normal. Large amount stool within the colon . There is no evidence of diverticulitis. IMPRESSION: Moderate alveolar opacities within the lower lobes probably pneumonia Cholelithiasis with gallbladder distention Large amount stool within the colon Conclusions/Impression: CKD IV with proteinuria -No NSAIDs Hypernatremia -Increase IVF with D5W Hypokalemia -Replete potassium as ordered Metabolic Acidosis -Continue bicarb through PEG HTN with CKD -Monitor BP DM II with CKD -RISS -Continue insulin glargine Hypoalbuminemia Severe protein malnutrition with decreased functional ability PEG -Continue Nepro -PT as tolerated Anemia in chronic illness -Monitor H&H -Transfuse PRBC as ordered Jeanne Cystitis -Consider Diflucan
[2023-01-28] MEDS ORDERED: VANCOMYCIN 1.25 GM in NA CHLORIDE 0.9% 250 ML IVPB SCH ×2
[2023-01-28] MEDS: INSULIN -REGULAR HUMAN 50 UNIT/0.5 ML ML SQ SCH ×5 (00:10→23:14)
[2023-01-28 04:41] LABS: Potassium 3.7 mEq/L (3.5-5.1)
[2023-01-28] MEDS: D5W 1,000 ML with POTASSIUM CL 20 MEQ IV SCH ×6 (05:33→16:36)
[2023-01-28] MEDS ORDERED: MICAFUNGIN SODIUM 100 MG VIAL IV SCH (09:00)
[2023-01-28] MEDS: Banana Flakes/T-Galactooligos 1 Dose Packet FT SCH ×2 (09:00→21:00)
[2023-01-28] MEDS: VITAL AF 1,000 ML BOT FT SCH ×4 (09:03→21:23)
[2023-01-28] MEDS: SODIUM BICARB 325 MG TAB PO SCH ×4 (09:05→20:59)
[2023-01-28] MEDS: HEPARIN 5000 UNIT/ML 1 ML VIAL SQ SCH ×2 (09:06→20:58)
[2023-01-28] MEDS: INSULIN GLARGINE 100 UNIT/ML SQ SCH ×2 (09:06→23:14)
[2023-01-28] MEDS: SUCRALFATE 1GM/10ML UCUP FT SCH ×4 (09:06→21:00)
[2023-01-28] MEDS: Meropenem 1,000 MG in NA CHLORIDE 0.9% 100 ML IV SCH ×2 (09:12→20:58)
[2023-01-28] MEDS: MICAFUNGIN SODIUM 100 MG in NA CHLORIDE 0.9% 100 ML IV SCH (09:12)
[2023-01-28] MEDS: PANTOPRAZOLE 40 MG INJ IVP SCH ×2 (09:15→20:58)
[2023-01-28] MEDS ORDERED: Meropenem 1000 MG/VIAL IV ONE (09:20)
--- NOTE | 2023-01-28 11:44 | PN ---
Date of Progress Note: 01/28/2023 Subjective: Patient was seen and examined at bedside. His tube feeds were changed yesterday. He is tolerating the tube feeds well. He is getting 125 cc of free water before and after each bolus tube feeding which is set for every 6 hours 4 times a day. He has no issues, otherwise. Physical Examination: Vital Signs: Have been reviewed and are stable. General: He appears in no acute distress. Tracheostomy in place. PEG tube in place. Extremities: Showed muscle wasting and cachexia. Laboratory Data: At this time are showing creatinine improving to 2.37, BUN of 60, sodium of 145, an d potassium of 3.7. Current Medications: Includes D5 water at 125 cc an hour with 20 mEq of potassium chloride. He is o n meropenem and micafungin, insulin, sucralfate, vancomycin, and Vital AF tube feeds. Impression: 1.Hypernatremia secondary to possibly increased osmotic load from the tube feeds. Tube feeds have b een changed yesterday and thus hypernatremia is improving with IV fluids. Continue to monitor closel y. 2.Acute on chronic renal insufficiency, likely secondary to overdiuresis from increased osmotic load from tube feeds, improving. Continue hydration. 3.Metabolic acidosis. Monitor for now. 4.Chronic hypoxic respiratory failure. 5.History of cerebrovascular accident. 6.Sepsis secondary to aspiration pneumonia, currently on multiple antibiotics. Plan: 1.Overall, patient's renal function is slowly improving. Continue IV fluids. 2.Continue new tube feeds with the free water flushes. Monitor electrolytes closely. Continue to f ollow up on labs daily. VV/MODL Voice ID: [id number] Report ID: [id number]
--- NOTE | 2023-01-28 14:02 | P.PN ---
Subjective Date of Service: 01/28/23 Chief Complaint: Pneumonia, UTI, Severe Sepsis No issues overnight. Patient has still been suctioning out bile/brown colored thick secretions from his mouth. He has also been experiencing copious secretion from the tracheostomy. He is awake and alert. Physical Examination - Vital Signs Temperature: 97.8 F Blood Pressure: 161/80 Pulse: 95 Respirations: 16 Pulse Ox (%): 98 Assessment And Plan - Plan Physical Exam General: Alert, In no apparent distress Neck: Supple, tracheostomy, Respiratory: Diminished, no crackles Cardiovascular: Regular rate/rhythm, Normal S1 S2 Gastrointestinal: Normal bowel sounds, No tenderness, PEG tube Musculoskeletal: No tenderness Integumentary: No rashes Neurological: Normal speech, Normal affect Sepsis secondary to Aspiration Pneumonia +/- Catheter-Associated Urinary Tract Infection (POA) CT showed "Moderate alveolar opacities within the lower lobes probably pneumonia" Lactate within normal limits. Blood & urine cultures obtained. Tmax of 100.5. UA suggest UTI. Urine is growing yeast. Copious tracheal secretions-light green color Blood cultures: No growth to date. Infectious disease is following. Antibiotics changed to vancomycin and Merrem. Micafungin added to treat yeast Follow cultures History of Cerebrovascular Accident Stable, nonverbal. No more vomiting. Dietitian consulted. Tube feeding as tolerated Hypertension Continue home antihypertensives Chronic Hypoxic Respiratory Failure s/p Tracheostomy / COPD Currently on 4L trach collar which is his baseline PRN nebs Hyperglycemia in Type I Diabetes Mellitus Continue correction scale insulin. None anion gap metabolic acidosis. IV hydration. Chronic Kidney Disease Stage IV/hypernatremia/metabolic acidosis Creatinine appears at baseline. Treat hypernatremia with D5 water. Monitor BMP closely Nephrology input appreciated. Hypothyroidism Continue home levothyroxine Depressive Disorder Continue home escitalopram Benign Prostatic Hyperplasia Continue tamsulosin. GERD/Bile acid reflux Patient started on Protonix IV Sucralfate via PEG. DVT prophylaxis Heparin subQ Goals of care Recent multiple hospitalizations for sepsis, DKA, renal failure, UTI and pneumonia. I had a discussion with patient's mother who claims to be the medical power of family law attorney. Patient's father and other family members were present during the discussion. I discussed with them patient's multiple hospitalizations for the recurrent problems as listed above. Family affirmed history of recurrent vomiting, multiple bouts of pneumonia as a result of the vomiting and in favor of hospice. Patient submitted a document which indicate the is the (financial) power of family law attorney and not to the medical power of family law attorney. Plan is to obtain medical power of family law attorney on record at [facility]. Family is planning to proceed with hospice after confirming with the patient.
[2023-01-28] MEDS: ACETAMINOPHEN 325 MG TABLET PO PRN ×2 (16:36→21:36)
[2023-01-29] MEDS: D5W 1,000 ML with POTASSIUM CL 20 MEQ IV SCH ×6 (00:30→16:20)
[2023-01-29] MEDS: ACETAMINOPHEN 325 MG TABLET PO PRN (05:36)
[2023-01-29 06:27] LABS: Absolute Lymphocytes (CBC) 1.7 K/uL (0.7-4.9); Hematocrit 33.2 % (39.6-49.0); Lymphocytes % 8.8 % (15.3-44.8); MPV 8.7 fL (7.6-11.3); RBC Red Blood Cell Count 3.86 M/uL (4.33-5.43)
[2023-01-29] MEDS: INSULIN -REGULAR HUMAN 50 UNIT/0.5 ML ML SQ SCH ×3 (06:37→17:29)
[2023-01-29] MEDS: Banana Flakes/T-Galactooligos 1 Dose Packet FT SCH ×2 (09:00→21:45)
[2023-01-29] MEDS: INSULIN GLARGINE 100 UNIT/ML SQ SCH ×2 (09:45→21:25)
[2023-01-29] MEDS: Meropenem 1,000 MG in NA CHLORIDE 0.9% 100 ML IV SCH ×2 (09:45→21:24)
[2023-01-29] MEDS: VITAL AF 1,000 ML BOT FT SCH ×4 (09:46→21:53)
[2023-01-29] MEDS: PANTOPRAZOLE 40 MG INJ IVP SCH ×2 (09:46→21:26)
[2023-01-29] MEDS: HEPARIN 5000 UNIT/ML 1 ML VIAL SQ SCH ×2 (09:46→21:27)
[2023-01-29] MEDS: SODIUM BICARB 325 MG TAB PO SCH ×4 (09:46→21:25)
[2023-01-29] MEDS: SUCRALFATE 1GM/10ML UCUP FT SCH ×4 (09:46→21:27)
[2023-01-29] MEDS: MICAFUNGIN SODIUM 100 MG in NA CHLORIDE 0.9% 100 ML IV SCH (10:03)
[2023-01-29] MEDS ORDERED: VANCOMYCIN 1 GM in NA CHLORIDE 0.9% 250 ML IVPB SCH (12:00)
--- NOTE | 2023-01-29 13:35 | P.PN ---
Subjective Date of Service: 01/29/23 Chief Complaint: Pneumonia, UTI, Severe Sepsis No issues overnight. Patient has still been suctioning out bile/brown colored thick secretions from his mouth. He has also been experiencing copious secretion from the tracheostomy. He is awake and alert. No issues overnight. Physical Examination - Vital Signs Temperature: 97.4 F Blood Pressure: 144/77 Pulse: 100 Respirations: 18 Pulse Ox (%): 97 - Studies Microbiology Data (last 24 hrs): 01/23/23 19:25 Blood - Blood Aerobic Blood Culture - Final No growth in 5 days. 01/23/23 19:25 Blood - Blood Anaerobic Blood Culture - Final No growth in 5 days. 01/23/23 19:25 Blood - Blood Aerobic Blood Culture - Final No growth in 5 days. 01/23/23 19:25 Blood - Blood Anaerobic Blood Culture - Final No growth in 5 days. Assessment And Plan - Plan Physical Exam General: Alert, In no apparent distress Neck: Supple, tracheostomy, Respiratory: Diminished, no crackles Cardiovascular: Regular rate/rhythm, Normal S1 S2 Gastrointestinal: Normal bowel sounds, No tenderness, PEG tube Musculoskeletal: No tenderness Neurological: Normal speech, Normal affect Sepsis secondary to Aspiration Pneumonia +/- Catheter-Associated Urinary Tract Infection (POA) CT showed "Moderate alveolar opacities within the lower lobes probably pneumonia" Lactate within normal limits. Blood & urine cultures obtained. Tmax of 100.5. UA suggest UTI. Urine is growing yeast. Copious tracheal secretions-light green color Blood cultures: No growth to date. Infectious disease is following. Antibiotics changed to vancomycin and Merrem. Leukocytosis improved from yesterday Micafungin added to treat yeast Blood cultures: No growth todate. History of Cerebrovascular Accident Stable, nonverbal. No more vomiting. Dietitian consulted. Tube feeding as tolerated Hypertension Continue home antihypertensives Chronic Hypoxic Respiratory Failure s/p Tracheostomy / COPD Currently on 4L trach collar which is his baseline PRN nebs Hyperglycemia in Type I Diabetes Mellitus Continue correction scale insulin. None anion gap metabolic acidosis. IV hydration. Chronic Kidney Disease Stage IV/hypernatremia/metabolic acidosis Creatinine appears at baseline. Treat hypernatremia with D5 water. Monitor BMP closely Nephrology input appreciated. Hypothyroidism Continue home levothyroxine Depressive Disorder Continue home escitalopram Benign Prostatic Hyperplasia Continue tamsulosin. GERD/Bile acid reflux Continue Protonix IV Sucralfate via PEG. DVT prophylaxis Heparin subQ Goals of care Recent multiple hospitalizations for sepsis, DKA, renal failure, UTI and pneumonia. I had a discussion with patient's mother who claims to be the medical power of claim attorney. Patient's father and other family members were present during the discussion. I discussed with them patient's multiple hospitalizations for the recurrent problems as listed above. Family affirmed history of recurrent vomiting, multiple bouts of pneumonia as a result of the vomiting and in favor of hospice. Patient submitted a document which indicate the is the (financial) power of claim attorney and not to the medical power of claim attorney. Plan is to obtain medical power of claim attorney on record at [facility]. Patient informed me today and is not ready for hospice. Ongoing goals of care discussion.
--- NOTE | 2023-01-29 14:59 | PN ---
Date of Progress Note: 01/29/2023 Subjective: The patient was seen and examined at bedside. He is doing okay. Family is at bedside. Physical Examination: Vital Signs: Have been reviewed and are stable. General: He appears in no acute distress. Lungs: Clear to auscultation. The tracheostomy in place, PEG tube in place. Laboratory Data: At this time showing creatinine improved to 2.1, sodium improving to 137, potassium of 4, and bicarb of 17. CBC showing stable hemoglobin, hematocrit, and platelet count. Impression: 1.Acute renal failure secondary to osmotic diuresis from tube feeds, currently with improving renal function. 2.Sepsis secondary to aspiration pneumonia and catheter associated urinary tract infection. Continu e antibiotics and monitor closely. 3.Hypoxic chronic respiratory failure, status post trach. Continue trach collar. 4.Hypernatremia, currently improving. Discontinue D5 water. 5.Metabolic acidosis. At this time, the patient is on sodium bicarbonate, which we will continue. Plan: Overall the patient's renal function is stable, improving. Continue current tube feeds, which have been changed to Vital AF with free water supplementation, and monitor closely for osmotic diure sis. VV/MODL Voice ID: [id number] Report ID: [id number]
[2023-01-30] MEDS: INSULIN -REGULAR HUMAN 50 UNIT/0.5 ML ML SQ SCH ×4 (00:56→18:00)
[2023-01-30] MEDS: ACETAMINOPHEN 325 MG TABLET PO PRN (01:42)
[2023-01-30] MEDS: D5W 1,000 ML with POTASSIUM CL 20 MEQ IV SCH ×4 (03:22→08:30)
[2023-01-30 06:12] LABS: Absolute Lymphocytes (CBC) 2.2 K/uL (0.7-4.9); Hematocrit 30.4 % (39.6-49.0); Lymphocytes % 13.8 % (15.3-44.8); MCV 84.6 fL (80-100); MPV 8.6 fL (7.6-11.3); RBC Red Blood Cell Count 3.59 M/uL (4.33-5.43)
[2023-01-30 06:30] LABS: Albumin 1.2 g/dL (3.4-5.0); Bilirubin Total 0.3 mg/dL (0.2-1.0); Potassium 3.9 mEq/L (3.5-5.1); Protein, Total 5.8 g/dL (6.4-8.2)
[2023-01-30 08:26] LABS: Blood Morphology Comment NOT SEEN (NOT SEEN); Platelet Estimate ADEQ; Platelets, Giant 1+
[2023-01-30] MEDS: Banana Flakes/T-Galactooligos 1 Dose Packet FT SCH ×2 (09:00→21:00)
[2023-01-30] MEDS ORDERED: POTASSIUM 25 MEQ EFFERV TAB PO ONE (09:00)
[2023-01-30] MEDS ORDERED: VANCOMYCIN 1.25 GM in NA CHLORIDE 0.9% 250 ML IVPB SCH (09:00)
[2023-01-30] MEDS: Meropenem 1,000 MG in NA CHLORIDE 0.9% 100 ML IV SCH ×2 (09:22→21:32)
[2023-01-30] MEDS: SODIUM BICARB 325 MG TAB PO SCH ×2 (09:23→21:29)
[2023-01-30] MEDS: INSULIN GLARGINE 100 UNIT/ML SQ SCH ×2 (09:23→21:30)
[2023-01-30] MEDS: MICAFUNGIN SODIUM 100 MG in NA CHLORIDE 0.9% 100 ML IV SCH (09:24)
[2023-01-30] MEDS: VITAL AF 1,000 ML BOT FT SCH ×5 (09:24→22:11)
[2023-01-30] MEDS: PANTOPRAZOLE 40 MG INJ IVP SCH ×2 (09:25→21:28)
[2023-01-30] MEDS: SUCRALFATE 1GM/10ML UCUP FT SCH ×4 (09:26→21:00)
--- NOTE | 2023-01-30 09:34 | P.PN ---
Date of Service: 01/30/23 Chief Complaint: Pneumonia, UTI, Severe Sepsis Subjective: Improving. Patient reports feeling better. Denies any new or worsening complaints. No acute events reported over the weekend. Physical Examination Temp Pulse Resp BP Pulse Ox 97.1 F 94 H 18 156/91 H 96 01/30/23 08:00 01/30/23 08:00 01/30/23 08:00 01/30/23 08:00 01/30/23 08:00 General: Alert. A&Ox3. In no apparent distress HEENT: Atraumatic, Normocephalic Neck: Tracheostomy Respiratory: Diminished, Other (trach collar 4L) Cardiovascular: No edema, Normal pulses Gastrointestinal: Normal bowel sounds, PEG tube Musculoskeletal: Left sided weakness Left BKA; amputation of all toes right foot Integumentary: Pressure ulcer sacrum stage 2. Urinary: Chronic Ortega catheter draining yellow urine Laboratory Data - Reviewed Microbiology Data - Reviewed Imagings Data: - CT Abdomen 01/23: FINDINGS: The evaluation of solid organs, vessels and bowel is limited secondary to the lack of contrast administration. Opacities within the lower lobes have the appearance of pneumonia. Gallbladder is distended. Stone within the gallbladder neck. Percutaneous tube within the stomach. The liver, spleen, pancreas, adrenals and kidneys appear grossly normal. Large amount stool within the colon . There is no evidence of diverticulitis Medication List: Reviewed Assessment and Plan Problem List Chronic respiratory failure s/p tracheostomy Chronic ortega catheter Hypertension Diabetes Mellitus Type I Recurrent Aspiration pneumonia Sepsis Hx CVA Anemia Hypothyroidism CKD stage IV Severe PCM Pneumonia - CT Abdomen/Pelvis 01/23: "Moderate alveolar opacities within the lower lobes probably pneumonia. Cholelithiasis with gallbladder distention. Large amount stool within the colon." - XR chest 01/23: "Bibasilar lung opacities probably pneumonia" - Influenza A&B Negative - Blood cultures 01/23: No growth to date - Leukocytosis improving (WBC 15.6). Afebrile. - Currently on Merrem and Vancomycin (started 01/26) Fungal UTI - Urinalysis 01/23: LE 500, RBC >50, WBC >50, Moderate WBC clumps, Bacteria 20- 50, Moderate yeast - Urine culture 01/23: 4+ yeast NOT gavino albicans - Patient has been treated with fluconazole x 14 days recently. - On Micafungin (started 01/27) Recommendations - Continue Merrem and Vancomycin for now. Day 5. - Urine culture with 4+ yeast: Continue Micafungin IV x 5 days. Currently day 4 of 5. - Sputum culture ordered, pending. - Strict blood glucose control - Aspiration precautions - Monitor WBC and fever trends - Continue nebulizer treatments - Supportive care and nutritional support as needed ID will follow up and monitor patient closely. Case discussed with Flavio Merrill
[2023-01-30] MEDS: HEPARIN 5000 UNIT/ML 1 ML VIAL SQ SCH ×2 (11:46→21:29)
[2023-01-30] MEDS: HYDROCODONE/APAP 5/325 MG TAB PO PRN (13:34)
--- NOTE | 2023-01-30 14:03 | P.PN ---
Nephrology note (S) Pt seen on trach collar, on TF, no resp distress or acute events, ortega with > 1500 cc present including overnight collection (O) Vitals, medications, blood work and imaging reviewed in the chart. General: Thin, frail HEENT: Atraumatic Neck: Supple. Trach collar Respiratory: b/l air entry, reduced BS Rt base Cardiovascular: No edema, Regular rate/rhythm Gastrointestinal: Soft and benign, Non-distended PEG present, ortega present Musculoskeletal: Muscle mass loss Left BKA Integumentary: No rashes Blood work reviewed in the chart. Conclusions/Impression: Stage 1 KATLYN (recurrent) on underlying CKD IV with proteinuria -Freq KATLYN due to pre-renal azotemia, dehydration/vol depletion, UTI, sepsis, other. Cr level has recovered back to baseline levels. Hypernatremia, resolved -Restart free water via PEG, need to reinforce free water admin at [place] Hypokalemia -Repleted Metabolic Acidosis 2nd to CKD, other -Continue sodium bicarb through PEG HTN with CKD -Monitor BP Recurrent lower urinary tract infectious disease, in the setting of indwelling bladder catheter -Review with ID measures to reduce freq of episodes, including suppressive Abx/anti-fungal, other Amrit Howard MD, EMMA
--- NOTE | 2023-01-30 14:33 | P.PN ---
Subjective Date of Service: 01/30/23 Chief Complaint: Pneumonia, UTI, Severe Sepsis No issues overnight. No major changes from yesterday. Tracheal secretions improved. Patient has still been suctioning out bile/brown colored thick secretions from his mouth. He is awake and alert. No recorded fever. Physical Examination - Vital Signs Temperature: 97.1 F Blood Pressure: 156/91 Pulse: 94 Respirations: 18 Pulse Ox (%): 96 Assessment And Plan - Plan Physical Exam General: Alert, In no apparent distress Neck: Supple, tracheostomy, Respiratory: Diminished, no crackles Cardiovascular: Regular rate/rhythm, Normal S1 S2 Gastrointestinal: Normal bowel sounds, No tenderness, PEG tube Musculoskeletal: No tenderness Neurological: Normal speech, Normal affect Sepsis secondary to Aspiration Pneumonia +/- Catheter-Associated Urinary Tract Infection (POA) CT showed "Moderate alveolar opacities within the lower lobes probably pneumonia" Lactate within normal limits. Blood & urine cultures obtained. Prior fever. UA suggest UTI. Urine is growing yeast. Tracheal secretions improved. Blood cultures: No growth to date. Infectious disease is following. Continue vancomycin and Merrem. Leukocytosis significantly improved. Micafungin added to treat yeast Blood cultures: No growth todate. History of Cerebrovascular Accident Stable, nonverbal. No more vomiting. Dietitian consulted. Tube feeding as tolerated Hypertension Continue home antihypertensives Chronic Hypoxic Respiratory Failure s/p Tracheostomy / COPD Currently on 4L trach collar which is his baseline PRN nebs Hyperglycemia in Type I Diabetes Mellitus Continue correction scale insulin. None anion gap metabolic acidosis. IV hydration. Chronic Kidney Disease Stage IV/hypernatremia/metabolic acidosis Creatinine appears at baseline. Treat hypernatremia with D5 water. Monitor BMP closely Nephrology input appreciated. Hypothyroidism Continue home levothyroxine Depressive Disorder Continue home escitalopram Benign Prostatic Hyperplasia Continue tamsulosin. GERD/Bile acid reflux I suspect brown-colored fluid suctioned from the mouth is from gastric reflux. Continue Protonix IV Sucralfate via PEG. DVT prophylaxis Heparin subQ Goals of care Recent multiple hospitalizations for sepsis, DKA, renal failure, UTI and pneumonia. I had a discussion with patient's mother who claims to be the medical power of trust and estates attorney. Patient's father and other family members were present during the discussion. I discussed with them patient's multiple hospitalizations for the recurrent problems as listed above. Family affirmed history of recurrent vomiting, multiple bouts of pneumonia as a result of the vomiting and in favor of hospice. Patient submitted a document which indicate the is the (financial) power of trust and estates attorney and not to the medical power of trust and estates attorney. Patient informed me that he is not ready for hospice. Continue aggressive treatment. Ongoing goals of care discussion.
[2023-01-31] MEDS: HYDROCODONE/APAP 5/325 MG TAB PO PRN ×2 (00:52→10:54)
[2023-01-31] MEDS: INSULIN -REGULAR HUMAN 50 UNIT/0.5 ML ML SQ SCH ×5 (00:54→23:54)
[2023-01-31 04:28] LABS: Potassium 4.3 mEq/L (3.5-5.1)
--- NOTE | 2023-01-31 07:07 | P.PN ---
Date of Service: 01/31/23 Subjective: doing okay breathing feels a little easier, +improving trach secretions afebrile ROS: 10 point ROS as noted above, otherwise negative Physical Exam: GEN: Alert, oriented, PEG tube in place HEENT: Normal conjunctiva, sclera anicteric CV: Regular rate and rhythm, no edema Pulm: Nonlabored respirations on 6L trach collar, diminished at bases b/l ABD: Soft, nontender, nondistended Neuro: Normal speech, normal affect PEG tube in place Trach in place vitals reviewed Problem List: Sepsis secondary to Aspiration Pneumonia +/- Catheter-Associated Urinary Tract Infection (POA) Hx of CVA Chronic Hypoxic Respiratory Failure s/p Tracheostomy / COPD Hyperglycemia in DM1 CKD Stage IV hypernatremia, resolved metabolic acidosis Hypertension Hypothyroidism Depressive Disorder BPH GERD/Bile acid reflux Sepsis secondary to Aspiration Pneumonia +/- Catheter-Associated Urinary Tract Infection (POA) CT(01/23): Moderate alveolar opacities within the lower lobes probably pneumonia UA (01/23): LE 500, RBC >50, WBC >50, Moderate WBC clumps, Bacteria 20-50, Moderate yeast Blood culture (01/23): No growth; Blood cultures(01/26): No growth urine culture (01/23): 4+ yeast Sputum culture(01/26): ordered, uncollected Sputum culture (01/12): Acinetobacter Renee/Haem, Proteus Mirabilis Esbl (from last hospitalization, likely speciated after discharge) ID consulted Continue vancomycin(01/30-) and Merrem(01/28-) Continue Micafungin (01/27-01/31) for 5 days Trach secretions improved. Leukocytosis significantly improved. Hx of CVA Stable, nonverbal Dietitian consulted. Tube feeding as tolerated Chronic Hypoxic Respiratory Failure s/p Tracheostomy / COPD Currently on 6L trach collar - baseline is ~4L PRN nebs Hyperglycemia in DM1 Continue correction scale insulin. None anion gap metabolic acidosis. IVF CKD Stage IV hypernatremia, resolved metabolic acidosis Nephrology consulted at ~baseline Continue to monitor renal function Hypertension - Continue home antihypertensives Hypothyroidism - Continue home levothyroxine Depressive Disorder - Continue home escitalopram BPH - Continue tamsulosin GERD/Bile acid reflux suspect brown-colored fluid suctioned from the mouth is from gastric reflux. Continue Protonix Sucralfate via PEG VTE: Heparin sq Code: Full Dispo: NH, ~2 days
[2023-01-31] MEDS: SUCRALFATE 1GM/10ML UCUP FT SCH ×4 (09:00→20:47)
[2023-01-31] MEDS: Banana Flakes/T-Galactooligos 1 Dose Packet FT SCH ×3 (09:00→20:47)
--- NOTE | 2023-01-31 09:10 | P.PN ---
Date of Service: 01/31/23 Chief Complaint: Pneumonia, UTI, Severe Sepsis Subjective: Patient seen and examined at bedside. No acute events reported overnight. Denies any new or worsening complaints. Afebrile. Physical Examination Temp Pulse Resp BP Pulse Ox 97.1 F 92 H 16 166/84 H 96 01/31/23 08:00 01/31/23 08:00 01/31/23 08:00 01/31/23 08:00 01/31/23 08:00 General: Alert. A&Ox3. In no apparent distress HEENT: Atraumatic, Normocephalic Neck: Tracheostomy Respiratory: Diminished, trach collar 6L. Cardiovascular: No edema, Normal pulses Gastrointestinal: Normal bowel sounds, PEG tube Musculoskeletal: Left sided weakness Left BKA; amputation of all toes right foot Integumentary: Pressure ulcer sacrum stage 2. Urinary: Chronic Ortega catheter draining yellow urine Laboratory Data - Reviewed Microbiology Data - Reviewed Imagings Data: - CT Abdomen 01/23: FINDINGS: The evaluation of solid organs, vessels and bowel is limited secondary to the lack of contrast administration. Opacities within the lower lobes have the appearance of pneumonia. Gallbladder is distended. Stone within the gallbladder neck. Percutaneous tube within the stomach. The liver, spleen, pancreas, adrenals and kidneys appear grossly normal. Large amount stool within the colon . There is no evidence of diverticulitis Medication List: Reviewed Assessment and Plan Problem List Chronic respiratory failure s/p tracheostomy Chronic ortega catheter Hypertension Diabetes Mellitus Type I Recurrent Aspiration pneumonia Sepsis Hx CVA Anemia Hypothyroidism CKD stage IV Severe PCM Pneumonia - CT Abdomen/Pelvis 01/23: "Moderate alveolar opacities within the lower lobes probably pneumonia. Cholelithiasis with gallbladder distention. Large amount stool within the colon." - XR chest 01/23: "Bibasilar lung opacities probably pneumonia" - Influenza A&B Negative - Blood cultures 01/23: No growth to date - Leukocytosis improving (WBC 15.6). Afebrile. - Currently on Merrem and Vancomycin (started 01/26) - Sputum culture: pending collection. Recent history of acinetobacter and pseudomonas. Fungal UTI - Urinalysis 01/23: LE 500, RBC >50, WBC >50, Moderate WBC clumps, Bacteria 20- 50, Moderate yeast - Urine culture 01/23: 4+ yeast NOT gavino albicans - Patient had been treated with Fluconazole x 14 days within the last 30 days - On Micafungin (started 01/27) Recommendations - Continue Merrem and Vancomycin for now. Day 5. - Urine culture with 4+ yeast: On Micafungin IV, currently day 5 of 5. - Aspiration precautions - Strict blood glucose control - Monitor WBC and fever trends - Continue nebulizer treatments - Supportive care and nutritional support as needed ID will follow patient as needed. Case discussed with Flavio Merrill
[2023-01-31] MEDS: MICAFUNGIN SODIUM 100 MG in NA CHLORIDE 0.9% 100 ML IV SCH (09:46)
[2023-01-31] MEDS: INSULIN GLARGINE 100 UNIT/ML SQ SCH ×2 (09:46→20:45)
[2023-01-31] MEDS: PANTOPRAZOLE 40 MG INJ IVP SCH ×2 (09:47→20:44)
[2023-01-31] MEDS: Meropenem 1,000 MG in NA CHLORIDE 0.9% 100 ML IV SCH ×2 (09:47→20:43)
[2023-01-31] MEDS: HEPARIN 5000 UNIT/ML 1 ML VIAL SQ SCH ×2 (09:48→20:46)
[2023-01-31] MEDS: SODIUM BICARB 325 MG TAB PO SCH ×2 (09:48→20:46)
[2023-01-31] MEDS: VITAL AF 1,000 ML BOT FT SCH ×5 (09:49→21:50)
--- NOTE | 2023-01-31 11:36 | P.PN ---
Nephrology note (S) Pt seen on trach collar, on TF, no resp distress or acute events, but cont to have sig secretions (O) Vitals, medications, blood work and imaging reviewed in the chart. General: Thin, frail HEENT: Atraumatic Neck: Supple. Trach collar Respiratory: b/l air entry, reduced BS Rt base Cardiovascular: No edema, Regular rate/rhythm Gastrointestinal: Soft and benign, Non-distended PEG present, ortega present Musculoskeletal: Muscle mass loss Left BKA Integumentary: No rashes Blood work reviewed in the chart. Conclusions/Impression: Stage 1 KATLYN (recurrent) on underlying CKD IV with proteinuria -Freq KATLYN due to pre-renal azotemia, dehydration/vol depletion, UTI, sepsis, other. Cr level has recovered back to baseline levels. Hypernatremia, resolved -Free water flushes with bolus feeds, need to reinforce free water admin at [place] Hypokalemia -Repleted Metabolic Acidosis 2nd to CKD, other -Continue sodium bicarb through PEG HTN with CKD -Monitor BP Recurrent lower urinary tract infectious disease, in the setting of indwelling bladder catheter -Review with ID measures to reduce freq of episodes, including suppressive Ab x/anti-fungal, other Amrit Howard MD, EMMA
[2023-01-31] MEDS: Mupirocin NASAL 2 APPL/1 GM TUBE NAS SCH ×2 (20:47→20:49)
[2023-02-01 04:47] LABS: Absolute Lymphocytes (CBC) 2.5 K/uL (0.7-4.9); Hematocrit 28.9 % (39.6-49.0); Lymphocytes % 17.5 % (15.3-44.8); MCV 84.1 fL (80-100); MPV 8.4 fL (7.6-11.3); RBC Red Blood Cell Count 3.44 M/uL (4.33-5.43)
[2023-02-01 05:12] LABS: Albumin 1.2 g/dL (3.4-5.0); Bilirubin Total 0.2 mg/dL (0.2-1.0); Magnesium 1.8 mg/dL (1.6-2.4); Potassium 4.3 mEq/L (3.5-5.1); Protein, Total 5.9 g/dL (6.4-8.2)
[2023-02-01] MEDS: INSULIN -REGULAR HUMAN 50 UNIT/0.5 ML ML SQ SCH ×3 (05:49→18:00)
--- NOTE | 2023-02-01 06:46 | P.PN ---
Date of Service: 02/01/23 Subjective: feels like hes improving day by day trach secretions harder to cough up, +needing frequent suction IV came out yesterday, waiting for PICC line afebrile ROS: 10 point ROS as noted above, otherwise negative Physical Exam: GEN: Alert, oriented, PEG tube in place HEENT: Normal conjunctiva, sclera anicteric CV: Regular rate and rhythm, no edema Pulm: Nonlabored respirations on 5L trach collar, diminished at bases b/l, +thick secretions ABD: Soft, nontender, nondistended Neuro: nonverbal, normal affect PEG tube in place Trach in place vitals reviewed Problem List: Sepsis secondary to Aspiration Pneumonia +/- Catheter-Associated Urinary Tract Infection (POA) Hx of CVA Chronic Hypoxic Respiratory Failure s/p Tracheostomy / COPD Hyperglycemia in DM1 CKD Stage IV hypernatremia, resolved metabolic acidosis Hypertension Hypothyroidism Depressive Disorder BPH GERD/Bile acid reflux Sepsis secondary to Aspiration Pneumonia +/- Catheter-Associated Urinary Tract Infection (POA) CT(01/23): Moderate alveolar opacities within the lower lobes probably pneumonia CXR(02/01): Worsening left basilar airspace opacification, with obscuration of the left diaphragmatic border. Underlying pneumonia should be considered pulm consulted 02/01 UA (01/23): LE 500, RBC >50, WBC >50, Moderate WBC clumps, Bacteria 20-50, Moderate yeast Blood culture (01/23): No growth; Blood cultures(01/26): No growth urine culture (01/23): 4+ yeast Sputum culture(01/26): ordered, uncollected Sputum culture (01/12): Acinetobacter Renee/Haem, Proteus Mirabilis Esbl (from last hospitalization, likely speciated after discharge) ID consulted Continue vancomycin(01/30-) and Merrem(01/28-) Completed 5 days of Micafungin (01/27-01/31) 01/31 - Patients IV came out, PICC line ordered Leukocytosis significantly improved, +afebrile 02/01 - trach secretions feel harder to cough up, +needing frequent suction hypoalbuminemia Hx of CVA Stable, nonverbal Dietitian consulted. Tube feeding as tolerated Chronic Hypoxic Respiratory Failure s/p Tracheostomy / COPD Currently on 5L trach collar - baseline is ~4L PRN nebs Hyperglycemia in DM1 Continue correction scale insulin. None anion gap metabolic acidosis. IVF CKD Stage IV hypernatremia, resolved metabolic acidosis Nephrology consulted at ~baseline Continue to monitor renal function Hypertension - Continue home antihypertensives Hypothyroidism - Continue home levothyroxine Depressive Disorder - Continue home escitalopram BPH - Continue tamsulosin GERD/Bile acid reflux suspect brown-colored fluid suctioned from the mouth is from gastric reflux. Continue Protonix Sucralfate via PEG VTE: Heparin sq Code: Full Dispo: NH, ~2-3 days 01/31 IV came out, PICC line ordered; pending further ID Recommendations
--- NOTE | 2023-02-01 07:54 | RAD REPORT ---
EXAM DESCRIPTION: [facility] Single [facility]02/01/2023 7:37 am CLINICAL HISTORY: f/u opacities COMPARISON: Chest Single View dated 01/23/2023; Chest Single View dated 01/13/2023; Chest Single View dated 01/09/2023; Chest Single View dated 01/07/2023 TECHNIQUE: Portable AP view of the chest. FINDINGS: Elevation of the right hemidiaphragm, and right perihilar airspace opacification, stable. Worsening left basilar airspace opacification with obscuration of the left diaphragmatic border. Trac heostomy tube unchanged in position. No pneumothorax or effusion. The cardiomediastinal contours are unremarkable. IMPRESSION: Worsening left basilar airspace opacification, with obscuration of the left diaphragmati c border. Underlying pneumonia should be considered.
[2023-02-01] MEDS: INSULIN GLARGINE 100 UNIT/ML SQ SCH ×2 (09:00→20:33)
[2023-02-01] MEDS: Banana Flakes/T-Galactooligos 1 Dose Packet FT SCH ×2 (09:00→20:34)
[2023-02-01] MEDS: SUCRALFATE 1GM/10ML UCUP FT SCH ×4 (09:00→20:34)
--- NOTE | 2023-02-01 09:46 | P.PN ---
Date of Service: 02/01/23 Chief Complaint: Pneumonia, UTI, Severe Sepsis Subjective: Patient reporting fatigue/malaise today, no specific complaints. Patient's father and mother at bedside. No acute events reported overnight. Physical Examination Temp Pulse Resp BP Pulse Ox 97.5 F 97 H 19 151/68 H 97 02/01/23 08:00 02/01/23 04:00 02/01/23 04:00 02/01/23 04:00 02/01/23 04:00 General: In no apparent distress HEENT: Atraumatic, Normocephalic Neck: Tracheostomy Respiratory: Diminished, trach collar 6L. Cardiovascular: No edema, Normal pulses Gastrointestinal: Normal bowel sounds, PEG tube Musculoskeletal: Left sided weakness Left BKA; amputation of all toes right foot Integumentary: Pressure ulcer sacrum stage 2. Urinary: Chronic Ortega catheter draining yellow urine Laboratory Data - Reviewed Microbiology Data - Reviewed Imagings Data: - CT Abdomen 01/23: FINDINGS: The evaluation of solid organs, vessels and bowel is limited secondary to the lack of contrast administration. Opacities within the lower lobes have the appearance of pneumonia. Gallbladder is distended. Stone within the gallbladder neck. Percutaneous tube within the stomach. The liver, spleen, pancreas, adrenals and kidneys appear grossly normal. Large amount stool within the colon . There is no evidence of diverticulitis Medication List: Reviewed Assessment and Plan Problem List Chronic respiratory failure s/p tracheostomy Chronic ortega catheter Hypertension Diabetes Mellitus Type I Recurrent Aspiration pneumonia Sepsis Hx CVA Anemia Hypothyroidism CKD stage IV Severe PCM Pneumonia - CT Abdomen/Pelvis 01/23: "Moderate alveolar opacities within the lower lobes probably pneumonia. Cholelithiasis with gallbladder distention. Large amount stool within the colon." - XR chest 01/23: "Bibasilar lung opacities probably pneumonia" - Influenza A&B Negative - Blood cultures 01/23: No growth to date - Leukocytosis improving (WBC 14.2). Afebrile. - Currently on Merrem and Vancomycin (started 01/26) - Sputum culture: pending collection. Recent history of acinetobacter and pseudomonas with acinetobacter resistant to all drugs tested at the time. Fungal UTI - Urinalysis 01/23: LE 500, RBC >50, WBC >50, Moderate WBC clumps, Bacteria 20- 50, Moderate yeast - Urine culture 01/23: 4+ yeast NOT gavino albicans - Patient had been treated with Fluconazole x 14 days within the last 30 days - Completed 5 days of Micafungin (01/27-01/31) Recommendations - Continue Merrem and Vancomycin for now. Currently Day 6. - Sputum culture to be obtained. WIll add on polymyxin and cefiderocol to sensitivity panel. Follow up with results. - Aspiration precautions - Strict blood glucose control - Monitor WBC and fever trends - Continue nebulizer treatments - Supportive care and nutritional support as needed ID will follow patient as needed. Case discussed with Flavio Merrill
--- NOTE | 2023-02-01 11:43 | P.PN ---
Nephrology note (S) Pt seen on trach collar, on TF, no resp distress or acute events, but cont to have sig secretions (O) Vitals, medications, blood work and imaging reviewed in the chart. General: Thin, frail HEENT: Atraumatic Neck: Supple. Trach collar Respiratory: b/l air entry, reduced BS Rt base Cardiovascular: No edema, Regular rate/rhythm Gastrointestinal: Soft and benign, Non-distended PEG present, ortega present Musculoskeletal: Muscle mass loss Left BKA Integumentary: No rashes Blood work reviewed in the chart. Conclusions/Impression: Stage 1 KATLYN (recurrent) on underlying CKD IV with proteinuria -Freq KATLYN due to pre-renal azotemia, dehydration/vol depletion, UTI, sepsis, other. Cr level has recovered back to baseline levels. Hypernatremia, resolved -Free water flushes with bolus feeds. Na level higher today and TF pump off at bedside, will talk to nursing staff Hypokalemia -Repleted Metabolic Acidosis 2nd to CKD, other -Continue sodium bicarb through PEG HTN with CKD -Monitor BP Recurrent lower urinary tract infectious disease, in the setting of indwelling bladder catheter -Review with ID measures to reduce freq of episodes, including suppressive Abx/anti-fungal, other Amrit Howard MD, EMMA
[2023-02-01] MEDS: PANTOPRAZOLE 40 MG INJ IVP SCH ×2 (12:13→20:33)
[2023-02-01] MEDS: Mupirocin NASAL 2 APPL/1 GM TUBE NAS SCH ×2 (12:14→20:33)
[2023-02-01] MEDS: SODIUM BICARB 325 MG TAB PO SCH ×2 (12:14→20:32)
[2023-02-01] MEDS: VITAL AF 1,000 ML BOT FT SCH ×4 (12:14→20:31)
[2023-02-01] MEDS: Meropenem 1,000 MG in NA CHLORIDE 0.9% 100 ML IV SCH ×2 (12:14→20:31)
[2023-02-01] MEDS: HEPARIN 5000 UNIT/ML 1 ML VIAL SQ SCH ×2 (12:28→20:33)
[2023-02-01] MEDS: HYDROCODONE/APAP 5/325 MG TAB PO PRN (20:34)
[2023-02-02] MEDS: INSULIN -REGULAR HUMAN 50 UNIT/0.5 ML ML SQ SCH ×4 (00:33→18:00)
[2023-02-02 05:33] LABS: Absolute Lymphocytes (CBC) 2.5 K/uL (0.7-4.9); Hematocrit 31.7 % (39.6-49.0); Lymphocytes % 21.7 % (15.3-44.8); MCV 84.6 fL (80-100); MPV 8.1 fL (7.6-11.3); RBC Red Blood Cell Count 3.74 M/uL (4.33-5.43)
[2023-02-02 05:53] LABS: Albumin 1.3 g/dL (3.4-5.0); Bilirubin Total 0.2 mg/dL (0.2-1.0); Magnesium 2.3 mg/dL (1.6-2.4); Potassium 4.2 mEq/L (3.5-5.1); Protein, Total 6.1 g/dL (6.4-8.2)
--- NOTE | 2023-02-02 07:14 | P.PN ---
Date of Service: 02/02/23 Subjective: feels slightly better, nods yes when asked if secretions are the same; nods no when asked if worse no new / worsening problems afebrile, leukocytosis improving ROS: 10 point ROS as noted above, otherwise negative Physical Exam: GEN: Alert, oriented, PEG tube in place HEENT: Normal conjunctiva, sclera anicteric CV: Regular rate and rhythm, no edema Pulm: Nonlabored respirations on 5L trach collar, diminished at bases b/l, +secretions ABD: Soft, nontender, nondistended Neuro: nonverbal, normal affect PEG tube in place Trach in place brownish tinged fluid in suction canister vitals reviewed Problem List: Sepsis secondary to Aspiration Pneumonia +/- Catheter-Associated Urinary Tract Infection (POA) Hx of CVA Chronic Hypoxic Respiratory Failure s/p Tracheostomy / COPD Hyperglycemia in DM1 CKD Stage IV hypernatremia, resolved metabolic acidosis Hypertension Hypothyroidism Depressive Disorder BPH GERD/Bile acid reflux Sepsis secondary to Aspiration Pneumonia +/- Catheter-Associated Urinary Tract Infection (POA) CT(01/23): Moderate alveolar opacities within the lower lobes probably pneumonia CXR(02/01): Worsening left basilar airspace opacification, with obscuration of the left diaphragmatic border. Underlying pneumonia should be considered pulm consulted 02/01 UA (01/23): LE 500, RBC >50, WBC >50, Moderate WBC clumps, Bacteria 20-50, Moderate yeast Blood culture (01/23): No growth; Blood cultures(01/26): No growth urine culture (01/23): 4+ yeast Sputum culture(01/26): ordered, uncollected Sputum culture (01/12): Acinetobacter Renee/Haem, Proteus Mirabilis Esbl (from last hospitalization, likely speciated after discharge) ID following recommended Cefiderocol if available; will review with pharmacy Continue vancomycin(01/30-) and Merrem(01/28-) Completed 5 days of Micafungin (01/27-01/31) 01/31 - Patients IV came out, PICC line ordered Leukocytosis significantly improved, +afebrile 02/01 - trach secretions feel harder to cough up, +needing frequent suction hypoalbuminemia unsuccessful obtaining PICC, patient not very compliant either Hx of CVA Stable, nonverbal Dietitian consulted. Tube feeding as tolerated Chronic Hypoxic Respiratory Failure s/p Tracheostomy / COPD Currently on 5L trach collar - baseline is ~4L PRN nebs Hyperglycemia in DM1 Continue correction scale insulin. None anion gap metabolic acidosis. IVF CKD Stage IV hypernatremia, resolved metabolic acidosis Nephrology consulted at ~baseline Continue to monitor renal function Hypertension - Continue home antihypertensives Hypothyroidism - Continue home levothyroxine Depressive Disorder - Continue home escitalopram BPH - Continue tamsulosin GERD/Bile acid reflux suspect brown-colored fluid suctioned from the mouth is from gastric reflux. Continue Protonix Sucralfate via PEG VTE: Heparin sq Code: Full Dispo: NH, ~2-3 days 01/31 IV came out, PICC line ordered; pending further ID Recommendations
--- NOTE | 2023-02-02 08:34 | P.CNS ---
Date of Consult: 02/02/23 Reason for Consult: History of pneumonia Chief Complaint: Pneumonia, UTI, Severe Sepsis History of Present Illness: Patient is 57 years of age nonverbal history of tracheostomy PEG tube recurrent hospital admissions chronic indwelling Simmons admitted with nausea vomiting constipation and elevated white count Patient's white count is declining he is alert responsive and cooperative Allergies Sulfa (Sulfonamide Antibiotics) Allergy (Verified 05/13/19 16:25) Itching/Hives/Rash Home Medications: Acetaminophen 2 tab FT Q4H PRN 10/22/22 Amlodipine [Norvasc*] 1 tab FT DAILY 10/22/22 Atorvastatin Calcium [Lipitor*] 1 tab FT BEDTIME 10/22/22 Budesonide [Pulmicort*] 2 ml IH Q12H 10/22/22 Ferrous Sulfate 7.5 ml FT Q12H 10/22/22 Lactulose [Enulose] 30 ml FT Q6H PRN 10/22/22 Levothyroxine Sodium 1 tab FT DAILY 10/22/22 Omeprazole 20 mg FT DAILY 10/22/22 Ondansetron [Zofran (Odt)*] 1 tab FT Q6H PRN 10/22/22 Tamsulosin HCl [Flomax] 1 cap FT BEDTIME 10/22/22 Nepro 240 ml FT QID bot 10/24/22 Aspirin [Aspirin EC 81 MG] 81 mg FT DAILY 12/16/22 Escitalopram Oxalate [Lexapro] 1 tab FT DAILY 12/16/22 Ipratropium/Albuterol Sulfate [Iprat-Albut 0.5-3(2.5) mg/3 ml] 3 ml IH Q6H 12/16/22 Lactobacillus Rhamnosus GG [Culturelle] 1 cap FT BID 12/16/22 Insulin Glargine,Hum.rec.anlog [Semglee] 15 unit SQ Q12HR ml 12/27/22 Insulin -Regular Human [Novolin -R*] See Protocol SQ Q6HR@0000,0600,1200,1800 ml 01/13/23 Insulin Lispro 0 unit SQ Q6H 01/24/23 Potassium Chloride 10 meq FT DAILY 01/24/23 Ticagrelor [Brilinta*] 90 mg FT BID 01/25/23 carvediloL [Coreg*] 6.25 mg FT BID 01/25/23 - Past Medical/Surgical History Diabetic: Yes -: DM I -: CKD IV (Dr. Edmonds) -: CAD -: Hypertension -: Hyperlipidemia -: PVD -: History TIA/CVA -: Congestive Heart Failure -: Appendectomy -: Left below-knee amputation -: Multiple surgeries to the right lower extremity -: Right foot all toes amputated- february 2019 Psychosocial/ Personal History: Patient lives at [facility]. - Family History Mother Medical History: Cancer - Social History Smoking Status: Unknown if ever smoked Alcohol use: Yes CD- Drugs: No Caffeine use: Yes Place of Residence: Home Review of Systems is unable to be obtained Physical Examination Temp Pulse Resp BP Pulse Ox 99.1 F 71 20 140/67 96 02/02/23 08:00 02/02/23 08:00 02/02/23 08:00 02/02/23 08:00 02/02/23 08:00 General: Alert, Cooperative Neck: Supple Respiratory: Clear to auscultation bilaterally, Normal air movement Cardiovascular: No edema Gastrointestinal: Normal bowel sounds, Soft and benign, Non-distended - Problems (1) Sepsis Current Visit: Yes Status: Acute Plan: Patient is 57 years of age has a tracheostomy PEG tube multiple medical problems admitted with some fever elevated white count does have bibasilar infiltrates 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 patient has some mild fever CT scan of the chest and abdomen reviewed doubt underlying sepsis blood cultures are so far negative patient is on vancomycin and meropenem saturation satisfactory check status chest x-ray shows an elevated right hemidiaphragm so far all cultures have been negative need to check the tracheal aspirate Prev Admission Acinetobacter isolated resis to mere, Rec Tx with Cefidrocol Qualifiers: Sepsis type: sepsis due to unspecified organism Sepsis acute organ dysfunction status: with acute organ dysfunction Severe sepsis acute organ dysfunction type: acute renal failure Acute renal failure type: unspecified Severe sepsis shock status: without septic shock Qualified Code(s): A41.9 - Sepsis, unspecified organism; R65.20 - Severe sepsis without septic shock; N17.9 - Acute kidney failure, unspecified
[2023-02-02] MEDS ORDERED: VANCOMYCIN 1.25 GM in NA CHLORIDE 0.9% 250 ML IVPB SCH (09:00)
[2023-02-02] MEDS: Banana Flakes/T-Galactooligos 1 Dose Packet FT SCH ×2 (09:00→21:00)
--- NOTE | 2023-02-02 09:15 | P.PN ---
Date of Service: 02/02/23 Chief Complaint: Pneumonia, UTI, Severe Sepsis Subjective: Patient resting comfortably in bed. No acute events reported overnight. Reports not feeling well generally, no specific complaints. Physical Examination Temp Pulse Resp BP Pulse Ox 99.1 F 71 20 140/67 96 02/02/23 08:00 02/02/23 08:00 02/02/23 08:00 02/02/23 08:00 02/02/23 08:00 General: In no apparent distress HEENT: Atraumatic, Normocephalic Neck: Tracheostomy Respiratory: Diminished, trach collar 5LPM. Cardiovascular: No edema, Normal pulses Gastrointestinal: Normal bowel sounds, PEG tube Musculoskeletal: Left sided weakness Left BKA; amputation of all toes right foot Integumentary: Pressure ulcer sacrum stage 2. Urinary: Chronic Ortega catheter draining yellow urine Laboratory Data - Reviewed Microbiology Data - Reviewed Imagings Data: - CT Abdomen 01/23: FINDINGS: The evaluation of solid organs, vessels and bowel is limited secondary to the lack of contrast administration. Opacities within the lower lobes have the appearance of pneumonia. Gallbladder is distended. Stone within the gallbladder neck. Percutaneous tube within the stomach. The liver, spleen, pancreas, adrenals and kidneys appear grossly normal. Large amount stool within the colon . There is no evidence of diverticulitis Medication List: Reviewed Assessment and Plan Problem List Chronic respiratory failure s/p tracheostomy Chronic ortega catheter Hypertension Diabetes Mellitus Type I Recurrent Aspiration pneumonia Sepsis Hx CVA Anemia Hypothyroidism CKD stage IV Severe PCM Pneumonia - CT Abdomen/Pelvis 01/23: "Moderate alveolar opacities within the lower lobes probably pneumonia. Cholelithiasis with gallbladder distention. Large amount stool within the colon." - XR chest 01/23: "Bibasilar lung opacities probably pneumonia" - Influenza A&B Negative - Blood cultures 01/23: No growth to date - Currently on Merrem and Vancomycin (started 01/26) - Sputum culture: pending collection. Recent history of acinetobacter and pseudomonas with acinetobacter resistant to all drugs tested at the time. - Leukocytosis improving (WBC 11.4) Fungal UTI - Urinalysis 01/23: LE 500, RBC >50, WBC >50, Moderate WBC clumps, Bacteria 20- 50, Moderate yeast - Urine culture 01/23: 4+ yeast NOT gavino albicans - Patient had been treated with Fluconazole x 14 days within the last 30 days - Completed 5 days of Micafungin (01/27-01/31) Recommendations - Continue current antibiotics for now. Spoke with Dr. Hawkins regarding MDR acinetobacter from 01/12 sputum culture and recommended starting patient on Cefiderocol. - Obtain sputum culture. If still growing acinetobacter MDR, will start patient on Cefiderocol. - Aspiration precautions - Strict blood glucose control - Monitor WBC and fever trends - Supportive care and nutritional support as needed ID will follow patient as needed. Case discussed with Flavio Merrill
[2023-02-02] MEDS: INSULIN GLARGINE 100 UNIT/ML SQ SCH ×2 (10:29→23:18)
[2023-02-02] MEDS: PANTOPRAZOLE 40 MG INJ IVP SCH ×2 (10:30→21:00)
[2023-02-02] MEDS: SODIUM BICARB 325 MG TAB PO SCH ×2 (10:31→23:18)
[2023-02-02] MEDS: Meropenem 1,000 MG in NA CHLORIDE 0.9% 100 ML IV SCH ×2 (10:31→21:00)
[2023-02-02] MEDS: HEPARIN 5000 UNIT/ML 1 ML VIAL SQ SCH (10:31)
[2023-02-02] MEDS: Mupirocin NASAL 2 APPL/1 GM TUBE NAS SCH ×3 (10:31→23:19)
[2023-02-02] MEDS: SUCRALFATE 1GM/10ML UCUP FT SCH ×4 (10:32→23:23)
[2023-02-02] MEDS: VITAL AF 1,000 ML BOT FT SCH ×4 (10:33→23:15)
--- NOTE | 2023-02-02 21:29 | P.PN ---
Date of Service: 02/02/23 Vital Signs Temp Pulse Resp BP Pulse Ox 97.9 F 92 H 20 155/76 H 97 02/02/23 20:00 02/02/23 20:00 02/02/23 20:00 02/02/23 20:00 02/02/23 20:00 Medications Acetaminophen (Acetaminophen 325 Mg Tablet) 650 mg PO Q6H PRN PRN Reason: Pain scale 2-4 (Mild) Last Admin: 01/30/23 01:42 Dose: 650 mg Hydrocodone Bitart/Acetaminophen (Hydrocodone/Apap 5/325 Mg Tab) 1 tab PO Q6H PRN PRN Reason: Pain scale 5-7 (Moderate) Last Admin: 02/01/23 20:34 Dose: 1 tab Albuterol Sulfate (Albuterol 2.5 Mg/3 Ml Neb Radha) 2.5 mg NEB [id number] PRN PRN Reason: SHORTNESS OF BREATH Dextrose (D10w 250 Ml Bag) 125 ml IV PRN PRN; Protocol PRN Reason: HYPOGLYCEMIA Glucagon (Glucagon 1 Mg/Vial) 1 mg IM 1X PRN; Protocol PRN Reason: HYPOGLYCEMIA Heparin Sodium (Porcine) (Heparin 5000 Unit/Ml 1 Ml Vial) 5,000 unit SQ Q12HR [facility] Stop: 02/04/23 23:59 Last Admin: 02/02/23 10:31 Dose: 5,000 unit Sodium Chloride (Sodium Chloride) 250 mls @ 0 mls/hr IV .Q0M MIGUEL ÁNGEL Meropenem 1,000 mg/ Sodium (Chloride) 100 mls @ 200 mls/hr IV Q12HR MIGUEL ÁNGEL Last Admin: 02/02/23 10:31 Dose: 100 mls Vancomycin HCl 1.25 gm/ Sodium (Chloride) 250 mls @ 150 mls/hr IVPB Q48H MIGUEL ÁNGEL; Protocol Insulin Glargine (Insulin Glargine 100 Unit/Ml) 15 unit SQ Q12HR MIGUEL ÁNGEL Last Admin: 02/02/23 10:29 Dose: 15 unit Insulin Human Regular (Insulin -Regular Human 50 Unit/0.5 Ml Ml) 0 unit SQ Q6HR MIGUEL ÁNGEL; Protocol Last Admin: 02/02/23 18:00 Dose: Not Given Ipratropium [place] (Ipratropium Brom 0.5mg/2.5ml) 0.5 mg NEB [id number] PRN PRN Reason: SHORTNESS OF BREATH Mupirocin (Mupirocin Nasal 2 Appl/1 Gm Tube) 1 appl KENA BID [facility] Stop: 02/05/23 09:01 Last Admin: 02/02/23 10:31 Dose: 1 appl Nutritional Formula (Vital Af 1,000 Ml Bot) 275 ml FT QID [facility] Last Admin: 02/02/23 17:00 Dose: Not Given Ondansetron HCl (Ondansetron 4 Mg/2 Ml Vial) 4 mg IV Q8HP PRN PRN Reason: NAUSEA / VOMITING Last Admin: 01/26/23 13:50 Dose: 4 mg Pantoprazole Sodium (Pantoprazole 40 Mg Inj) 40 mg IVP Q12HR [facility]; Protocol Last Admin: 02/02/23 10:30 Dose: 40 mg Sodium Bicarbonate (Sodium Bicarb 325 Mg Tab) 650 mg PO BID [facility] Last Admin: 02/02/23 10:31 Dose: 650 mg Sodium Chloride (Flush Normal Saline 10 Ml) 10 ml IV BID [facility] Last Admin: 02/02/23 10:32 Dose: 10 ml Sodium Chloride (Sodium Chloride 0.9% 10ml Inj) 10 ml IV UD PRN PRN Reason: Diluant Sucralfate (Sucralfate 1gm/10ml Ucup) 1 gm FT QID [facility] Last Admin: 02/02/23 17:00 Dose: 1 gm Microbiology Results 01/23/23 19:25 Blood - Blood Aerobic Blood Culture - Final No growth in 5 days. 01/23/23 19:25 Blood - Blood Anaerobic Blood Culture - Final No growth in 5 days. 01/23/23 19:25 Blood - Blood Aerobic Blood Culture - Final No growth in 5 days. 01/23/23 19:25 Blood - Blood Anaerobic Blood Culture - Final No growth in 5 days. 01/23/23 20:05 Clean Catch Urine [place] Count - Final >100,000 CFU/ML. 01/23/23 20:05 Clean Catch Urine - Final 01/23/23 18:39 Nasopharnyx Influenza Type A Antigen Screen - Final 01/23/23 18:39 Nasopharnyx Influenza Type B Antigen Screen - Final Assessment/ Plan: Nephrology No dyspnea No chest pain No acute events overnight Vitals, medications, blood work and imaging reviewed in the chart. General: In no apparent distress, Cooperative HEENT: Atraumatic Neck: Supple. Trach. Respiratory: Normal air movement Cardiovascular: No edema, Regular rate/rhythm Gastrointestinal: Soft and benign, Non-distended PEG Musculoskeletal: No clubbing, No contractures Left BKA Integumentary: No rashes, No cyanosis Simmons medium Blood work reviewed in the chart. Imagings Data: EXAM DESCRIPTION: [facility] Single View01/23/2023 7:34 pm CLINICAL HISTORY: Chest pain COMPARISON: January 13, 2023 FINDINGS: No significant change bibasilar lung opacities. Chronic elevation right hemidiaphragm. Heart is normal size. Tracheostomy tube in place IMPRESSION: Bibasilar lung opacities probably pneumonia EXAM DESCRIPTION: CT - Abdomen Pelvis Wo Contrast - 01/23/2023 7:47 pm CLINICAL HISTORY: Abdominal pain COMPARISON: November 2022 TECHNIQUE: Computed axial tomography of the abdomen and pelvis was obtained. IV and oral contrast were not requested. All CT scans are performed using dose optimization technique as appropriate and may include automated exposure control or mA/KV adjustment according to patient size. FINDINGS: The evaluation of solid organs, vessels and bowel is limited secondary to the lack of contrast administration. Opacities within the lower lobes have the appearance of pneumonia Gallbladder is distended. Stone within the gallbladder neck. Percutaneous tube within the stomach. The liver, spleen, pancreas, adrenals and kidneys appear grossly normal. Large amount stool within the colon . There is no evidence of diverticulitis. IMPRESSION: Moderate alveolar opacities within the lower lobes probably pneumonia Cholelithiasis with gallbladder distention Large amount stool within the colon Conclusions/Impression: CKD IV with proteinuria -No NSAIDs Hypernatremia, resolved Hypokalemia, resolved Metabolic Acidosis -Continue bicarb through PEG HTN with CKD -Monitor BP DM II with CKD -RISS -Continue insulin glargine Hypoalbuminemia Severe protein malnutrition with decreased functional ability PEG -Continue Nepro -PT as tolerated Anemia in chronic illness -Monitor H&H -Transfuse PRBC as ordered Case reviewed with Dr. Blair
[2023-02-03 02:50] LABS: Absolute Lymphocytes (CBC) 2.2 K/uL (0.7-4.9); Hematocrit 30.8 % (39.6-49.0); Lymphocytes % 16.2 % (15.3-44.8); MCV 83.8 fL (80-100); MPV 7.8 fL (7.6-11.3); RBC Red Blood Cell Count 3.67 M/uL (4.33-5.43)
[2023-02-03 03:09] LABS: Magnesium 2.1 mg/dL (1.6-2.4); Potassium 4.2 mEq/L (3.5-5.1)
[2023-02-03] MEDS: INSULIN -REGULAR HUMAN 50 UNIT/0.5 ML ML SQ SCH ×4 (06:00→18:25)
--- NOTE | 2023-02-03 06:49 | P.PN ---
Date of Service: 02/03/23 Subjective: discussed the need for another sputum culture to be obtained nods yes when asked if he would let respiratory therapist collect another sputum culture unable to get PICC yesterday, pt agreeable to cooperate no acute events overnight ROS: 10 point ROS as noted above, otherwise negative Physical Exam: GEN: Alert, oriented, PEG tube in place HEENT: Normal conjunctiva, sclera anicteric CV: Regular rate and rhythm, no edema Pulm: Nonlabored respirations on 5L trach collar, diminished at bases b/l, +secretions ABD: Soft, nontender, nondistended Neuro: nonverbal, normal affect PEG tube in place Trach in place brownish tinged fluid in suction canister vitals reviewed Problem List: Sepsis secondary to Aspiration Pneumonia +/- Catheter-Associated Urinary Tract Infection (POA) Hx of CVA Chronic Hypoxic Respiratory Failure s/p Tracheostomy / COPD Hyperglycemia in DM1 CKD Stage IV hypernatremia, resolved metabolic acidosis Hypertension Hypothyroidism Depressive Disorder BPH GERD/Bile acid reflux Sepsis secondary to Aspiration Pneumonia +/- Catheter-Associated Urinary Tract Infection (POA) CT(01/23): Moderate alveolar opacities within the lower lobes probably pneumonia CXR(02/01): Worsening left basilar airspace opacification, with obscuration of the left diaphragmatic border. Underlying pneumonia should be considered Repeat CXR(02/03): no change pulm consulted 02/01 UA (01/23): LE 500, RBC >50, WBC >50, Moderate WBC clumps, Bacteria 20-50, Moderate yeast Blood culture (01/23): No growth; Blood cultures(01/26): No growth Urine culture (01/23): 4+ yeast Sputum culture(02/03): pending Sputum culture (01/12): Acinetobacter Renee/Haem, Proteus Mirabilis Esbl (from last hospitalization, likely speciated after discharge) ID following Continue vancomycin(01/30-) and Merrem(01/28-) recommended Cefiderocol if new sputum culture grows Acinetobacter; will need to check further sensitivities Completed 5 days of Micafungin (01/27-01/31) 01/31 - Patients IV came out, PICC line ordered 02/01 - trach secretions feel harder to cough up, +needing frequent suction hypoalbuminemia unsuccessful obtaining PICC, patient not very compliant per report and difficulty placing picc in past Hx of CVA Stable, nonverbal Dietitian consulted. Tube feeding as tolerated Chronic Hypoxic Respiratory Failure s/p Tracheostomy / COPD Currently on 5L trach collar - baseline is ~4L PRN nebs Hyperglycemia in DM1 Continue correction scale insulin. None anion gap metabolic acidosis. CKD Stage IV hypernatremia, resolved metabolic acidosis Nephrology consulted at ~baseline Continue to monitor renal function Hypertension - Continue home antihypertensives Hypothyroidism - Continue home levothyroxine Depressive Disorder - Continue home escitalopram BPH - Continue tamsulosin GERD/Bile acid reflux suspect brown-colored fluid suctioned from the mouth is from gastric reflux. Continue Protonix Sucralfate via PEG VTE: Heparin sq Code: Full Dispo: NH, ~3-4 days awaiting repeat sputum culture possible bronch monday needs iv access
--- NOTE | 2023-02-03 07:26 | RAD REPORT ---
EXAM DESCRIPTION: RAD - Chest Single View - 02/03/2023 6:43 am CLINICAL HISTORY: f/u opacities COMPARISON: Chest Single View dated 02/01/2023; Chest Single View dated 01/23/2023; Chest Single View d ated 01/13/2023; Chest Single View dated 01/09/2023; Abdomen Pelvis Wo Contrast dated 01/23/2023 FINDINGS: Lines: Tracheostomy. Lungs: Airspace disease in lung bases without significant change since 02/01/2023. Pleural: No significant pleural effusions or pneumothorax. Cardiac: Similar size and configuration Mediastinum: Within normal limits. Bones: No acute fractures. Other: None IMPRESSION: No acute cardiopulmonary disease.
[2023-02-03] MEDS: PANTOPRAZOLE 40 MG INJ IVP SCH ×2 (09:00→21:00)
[2023-02-03] MEDS ORDERED: VANCOMYCIN 1.25 GM in NA CHLORIDE 0.9% 250 ML IVPB SCH (09:00)
[2023-02-03] MEDS: VITAL AF 1,000 ML BOT FT SCH ×4 (09:00→21:54)
[2023-02-03] MEDS: Banana Flakes/T-Galactooligos 1 Dose Packet FT SCH ×2 (09:00→21:00)
[2023-02-03] MEDS: Meropenem 1,000 MG in NA CHLORIDE 0.9% 100 ML IV SCH ×2 (09:00→21:00)
--- NOTE | 2023-02-03 09:01 | P.PN ---
Date of Service: 02/03/23 Chief Complaint: Pneumonia, UTI, Severe Sepsis Subjective: Patient seen and examined at bedside. No new or worsening complaints. Patient's mother at bedside. No acute events reported overnight. Physical Examination Temp Pulse Resp BP Pulse Ox 97.5 F 93 H 20 147/78 H 96 02/03/23 04:00 02/03/23 04:00 02/03/23 04:00 02/03/23 04:00 02/03/23 04:00 General: In no apparent distress A&Ox3. HEENT: Atraumatic, Normocephalic Neck: Tracheostomy Respiratory: Diminished, trach collar 5LPM. Cardiovascular: No edema, Normal pulses Gastrointestinal: Normal bowel sounds, PEG tube Musculoskeletal: Left sided weakness Left BKA; amputation of all toes right foot Integumentary: Pressure ulcer sacrum stage 2. Urinary: Chronic Ortega catheter draining yellow urine Laboratory Data - Reviewed Microbiology Data - Reviewed Imagings Data: - CT Abdomen 01/23: FINDINGS: The evaluation of solid organs, vessels and bowel is limited secondary to the lack of contrast administration. Opacities within the lower lobes have the appearance of pneumonia. Gallbladder is distended. Stone within the gallbladder neck. Percutaneous tube within the stomach. The liver, spleen, pancreas, adrenals and kidneys appear grossly normal. Large amount stool within the colon . There is no evidence of diverticulitis Medication List: Reviewed Assessment and Plan Problem List Chronic respiratory failure s/p tracheostomy Chronic ortega catheter Hypertension Diabetes Mellitus Type I Recurrent Aspiration pneumonia Sepsis Hx CVA Anemia Hypothyroidism CKD stage IV Severe PCM Pneumonia - CT Abdomen/Pelvis 01/23: "Moderate alveolar opacities within the lower lobes probably pneumonia. Cholelithiasis with gallbladder distention. Large amount stool within the colon." - XR chest 01/23: "Bibasilar lung opacities probably pneumonia" - Influenza A&B Negative - Blood cultures 01/23: No growth to date - Currently on Merrem and Vancomycin (started 01/26) - Sputum culture: pending - Recent history of acinetobacter and pseudomonas with acinetobacter resistant to all drugs tested at the time. Cefiderocol not available at this facility. Will obtain sputum culture for this admission and adjust antibiotics as appropriate. - Leukocytosis (WBC 13.4) - Afebrile - pulmonology following Fungal UTI - Urinalysis 01/23: LE 500, RBC >50, WBC >50, Moderate WBC clumps, Bacteria 20- 50, Moderate yeast - Urine culture 01/23: 4+ yeast NOT gavino albicans - Patient had been treated with Fluconazole x 14 days within the last 30 days - Completed 5 days of Micafungin (01/27-01/31) Recommendations - Continue current antibiotics for now. Follow up with sputum culture results. - Pulmonology following - Aspiration precautions - Strict blood glucose control - Monitor WBC and fever trends - Supportive care and nutritional support as needed ID will follow patient as needed. Case discussed with Flavio Merrill
--- NOTE | 2023-02-03 10:57 | P.PN ---
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 patient has now agreed to have a sputum specimen sent off prior to that Citrobacter was isolated that is resistant patient has chronic renal failure signs are stable patient is afebrile still mildly elevated white count patient is on Merrem and vancomycin PSA sensitive to meropenem he likely is going to need a course of steroids to clear the bilateral infiltrates and also had a UTI possible bronc discussed with mother and the Qualifiers: Pneumonia type: due to unspecified organism Laterality: bilateral Lung location: lower lobe of lung Qualified Code(s): J18.9 - Pneumonia, unspecified organism Physician Review: Patient Assessed, Agree with Above Assessment and Plan
[2023-02-03] MEDS: SUCRALFATE 1GM/10ML UCUP FT SCH ×4 (11:01→21:00)
[2023-02-03] MEDS: Mupirocin NASAL 2 APPL/1 GM TUBE NAS SCH ×2 (11:01→21:49)
[2023-02-03] MEDS: INSULIN GLARGINE 100 UNIT/ML SQ SCH ×2 (11:02→21:53)
[2023-02-03] MEDS: SODIUM BICARB 325 MG TAB PO SCH ×2 (11:02→21:54)
--- NOTE | 2023-02-03 16:55 | P.PN ---
Nephrology note (S) Delayed entry note, pt seen earlier this AM, TF and flushes were noted to be resumed, no other sig change in condition, sputum culture was obtained by deep suctioning by RT per reports (O) Vitals, medications, blood work and imaging reviewed in the chart. General: Thin, frail HEENT: Atraumatic Neck: Supple. Trach collar Respiratory: b/l air entry, reduced BS Rt base Cardiovascular: No edema, Regular rate/rhythm Gastrointestinal: Soft and benign, Non-distended PEG present, ortega present Musculoskeletal: Muscle mass loss Left BKA Integumentary: No rashes Blood work reviewed in the chart. Conclusions/Impression: Stage 1 KATLYN (recurrent) on underlying CKD IV with proteinuria -Freq KATLYN due to pre-renal azotemia, dehydration/vol depletion, UTI, sepsis, other. Cr level has recovered back to baseline levels and remains stable. Hypernatremia, resolved -Free water flushes resumed with bolus feeds. Na level remains > 140 but stable, monitor closely Chronic resp failure -stable basilar infiltrates, Abx for PNA unspecified organism per Pulm/ID Metabolic Acidosis 2nd to CKD, other -Continue sodium bicarb through PEG HTN with CKD -Monitor BP, will place back on Amlodipine. Given his CAD and DM, target BP < 130/80 Recurrent lower urinary tract infectious disease, in the setting of indwelling bladder catheter -s/p treatment with anti fungal Amrit Howard MD, EMMA
[2023-02-03] MEDS: AMLODIPINE 2.5 MG TAB PO SCH (21:53)
[2023-02-04] MEDS: INSULIN -REGULAR HUMAN 50 UNIT/0.5 ML ML SQ SCH ×4 (06:09→18:00)
--- NOTE | 2023-02-04 06:47 | P.PN ---
Date of Service: 02/04/23 Subjective: secretions remain ~same as yesterday doesn't feel like hes improving, but doesn't feel like he is getting worse unable to get PICC placed yesterday, technically difficult ROS: 10 point ROS as noted above, otherwise negative Physical Exam: GEN: Alert, oriented, PEG tube in place HEENT: Normal conjunctiva, sclera anicteric CV: Regular rate and rhythm, no edema Pulm: Nonlabored respirations on 5L trach collar, diminished at bases b/l, +secretions ABD: Soft, nontender, nondistended Neuro: nonverbal, normal affect PEG tube in place Trach in place brownish tinged fluid in suction canister vitals reviewed Problem List: Sepsis secondary to Aspiration Pneumonia +/- Catheter-Associated Urinary Tract Infection (POA) Hx of CVA Chronic Hypoxic Respiratory Failure s/p Tracheostomy / COPD Hyperglycemia in DM1 CKD Stage IV hypernatremia, resolved metabolic acidosis Hypertension Hypothyroidism Depressive Disorder BPH GERD/Bile acid reflux Sepsis secondary to Aspiration Pneumonia +/- Catheter-Associated Urinary Tract Infection (POA) CT(01/23): Moderate alveolar opacities within the lower lobes probably pneumonia CXR(02/01): Worsening left basilar airspace opacification, with obscuration of the left diaphragmatic border. Underlying pneumonia should be considered Repeat CXR(02/03): no change pulm consulted 02/01 UA (01/23): LE 500, RBC >50, WBC >50, Moderate WBC clumps, Bacteria 20-50, Moderate yeast Blood culture (01/23): No growth; Blood cultures(01/26): No growth Urine culture (01/23): 4+ yeast Sputum culture(02/03): 4+ GNR Sputum culture (01/12): Acinetobacter Renee/Haem, Proteus Mirabilis Esbl (from last hospitalization, likely speciated after discharge) ID following Continue vancomycin(01/30-) and Merrem(01/28-) recommended Cefiderocol if new sputum culture grows Acinetobacter; will need to check further sensitivities Completed 5 days of Micafungin (01/27-01/31) 01/31 - Patients IV came out, PICC line ordered unsuccessful obtaining PICC, patient not very compliant per report and diffic ulty placing picc in past remains off antibiotics until IV access Hx of CVA Stable, nonverbal Dietitian consulted. Tube feeding as tolerated Chronic Hypoxic Respiratory Failure s/p Tracheostomy / COPD Currently on 5L trach collar - baseline is ~4L PRN nebs Hyperglycemia in DM1 Continue correction scale insulin. None anion gap metabolic acidosis. CKD Stage IV hypernatremia, resolved metabolic acidosis Nephrology consulted at ~baseline Continue to monitor renal function Hypertension - Continue home antihypertensives Hypothyroidism - Continue home levothyroxine Depressive Disorder - Continue home escitalopram BPH - Continue tamsulosin GERD/Bile acid reflux suspect brown-colored fluid suctioned from the mouth is from gastric reflux. Continue Protonix Sucralfate via PEG VTE: Heparin sq Code: Full Dispo: NH, ~3-4 days awaiting repeat sputum culture possible bronch monday needs iv access
[2023-02-04 07:17] LABS: Absolute Lymphocytes (CBC) 2.8 K/uL (0.7-4.9); Hematocrit 30.1 % (39.6-49.0); Lymphocytes % 25.3 % (15.3-44.8); MCV 83.6 fL (80-100); MPV 7.5 fL (7.6-11.3); RBC Red Blood Cell Count 3.61 M/uL (4.33-5.43)
[2023-02-04 07:33] LABS: Magnesium 2.2 mg/dL (1.6-2.4); Potassium 4.4 mEq/L (3.5-5.1)
[2023-02-04] MEDS: Banana Flakes/T-Galactooligos 1 Dose Packet FT SCH ×2 (09:00→20:18)
[2023-02-04] MEDS: SUCRALFATE 1GM/10ML UCUP FT SCH ×4 (09:00→20:18)
[2023-02-04] MEDS: INSULIN GLARGINE 100 UNIT/ML SQ SCH ×2 (09:18→20:19)
[2023-02-04] MEDS: HEPARIN 5000 UNIT/ML 1 ML VIAL SQ SCH ×2 (09:18→20:18)
[2023-02-04] MEDS: SODIUM BICARB 325 MG TAB PO SCH ×2 (09:19→20:18)
[2023-02-04] MEDS: LEVOTHYROXINE SOD 0.025 MG TAB FT SCH (09:20)
[2023-02-04] MEDS: AMLODIPINE 2.5 MG TAB PO SCH (09:20)
[2023-02-04] MEDS: VITAL AF 1,000 ML BOT FT SCH ×4 (09:21→20:17)
[2023-02-04] MEDS: Mupirocin NASAL 2 APPL/1 GM TUBE NAS SCH ×2 (09:21→20:18)
[2023-02-04] MEDS: Meropenem 1,000 MG in NA CHLORIDE 0.9% 100 ML IV SCH ×2 (09:52→20:18)
[2023-02-04] MEDS ORDERED: VANCOMYCIN 1.25 GM in NA CHLORIDE 0.9% 250 ML IVPB SCH ×4 (12:00)
--- NOTE | 2023-02-04 13:32 | P.PN ---
Nephrology note (S) Pt remains in stable condition, remains on TC, O2 requirements stable, on bolus TF. at bedside, case discussed. (O) Vitals, medications, blood work and imaging reviewed in the chart. General: Thin, frail HEENT: Atraumatic Neck: Supple. Trach collar Respiratory: b/l air entry, reduced BS Rt base Cardiovascular: No edema, Regular rate/rhythm Gastrointestinal: Soft and benign, Non-distended PEG present, ortega present Musculoskeletal: Muscle mass loss Left BKA Integumentary: No rashes Blood work reviewed in the chart. Conclusions/Impression: Stage 1 KATLYN (recurrent) on underlying CKD IV with proteinuria, KATLYN since resolved -Frequent KATLYN episodes due to pre-renal azotemia, dehydration/vol depletion, UTI, sepsis, other. Cr level has recovered back to baseline levels and remains stable. Family concerned about (longer-term) [employer] risk which was discussed, limitations of eGFR calculations also explained, pt does have loss of muscle mass. Hypernatremia, resolved -Free water flushes resumed with bolus feeds. Monitor Na levels Chronic resp failure -stable basilar infiltrates, Abx for PNA unspecified organism per Pulm/ID, latest sputum culture prelim report noted Metabolic Acidosis 2nd to CKD, other -Continue sodium bicarb through PEG HTN with CKD -Monitor BP, did place back on lower dose Amlodipine. Given his CAD and DM, target BP < 130/80 Recurrent lower urinary tract infectious disease, in the setting of indwelling bladder catheter -s/p treatment with anti fungal, cont ortega care, exchange every 30 days Amrit Howard MD, EMMA
[2023-02-04] MEDS: TAMSULOSIN 0.4 MG SR CAP FT SCH (20:18)
[2023-02-05] MEDS: INSULIN -REGULAR HUMAN 50 UNIT/0.5 ML ML SQ SCH ×5 (06:00→23:47)
[2023-02-05] MEDS: Pantoprazole (granules) 40 MG/BLIST PACKET FT SCH (06:26)
[2023-02-05] MEDS: LEVOTHYROXINE SOD 0.025 MG TAB FT SCH (06:26)
[2023-02-05] MEDS: SUCRALFATE 1GM/10ML UCUP FT SCH ×4 (09:00→21:00)
[2023-02-05] MEDS: Banana Flakes/T-Galactooligos 1 Dose Packet FT SCH ×2 (09:00→21:00)
[2023-02-05] MEDS: Mupirocin NASAL 2 APPL/1 GM TUBE NAS SCH (09:00)
[2023-02-05] MEDS: Meropenem 1,000 MG in NA CHLORIDE 0.9% 100 ML IV SCH ×2 (09:12→22:11)
[2023-02-05] MEDS: SODIUM BICARB 325 MG TAB PO SCH ×2 (09:14→22:11)
[2023-02-05] MEDS: AMLODIPINE 2.5 MG TAB PO SCH (09:15)
[2023-02-05] MEDS: VITAL AF 1,000 ML BOT FT SCH ×5 (09:16→22:18)
[2023-02-05] MEDS: INSULIN GLARGINE 100 UNIT/ML SQ SCH ×2 (09:16→22:11)
--- NOTE | 2023-02-05 11:50 | P.PN ---
Date of Service: 02/05/23 Subjective: secretions remain ~unchanged unable to get PICC placed yesterday, however peripheral IV access gained able to restart antibiotics yesterday no new / worsening problems ROS: 10 point ROS as noted above, otherwise negative Physical Exam: GEN: Alert, oriented, PEG tube in place HEENT: Normal conjunctiva, sclera anicteric CV: Regular rate and rhythm, no edema Pulm: Nonlabored respirations on 5L trach collar, diminished at bases b/l, +secretions ABD: Soft, nontender, nondistended Neuro: nonverbal, but nods / points at letter chart, normal affect PEG tube in place Trach in place vitals reviewed Problem List: Sepsis secondary to Aspiration Pneumonia +/- Catheter-Associated Urinary Tract Infection (POA) Hx of CVA Chronic Hypoxic Respiratory Failure s/p Tracheostomy / COPD Hyperglycemia in DM1 CKD Stage IV hypernatremia, resolved metabolic acidosis Hypertension Hypothyroidism Depressive Disorder BPH GERD/Bile acid reflux Sepsis secondary to Aspiration Pneumonia +/- Catheter-Associated Urinary Tract I nfection (POA) CT(01/23): Moderate alveolar opacities within the lower lobes probably pneumonia CXR(02/01): Worsening left basilar airspace opacification, with obscuration of the left diaphragmatic border. Underlying pneumonia should be considered Repeat CXR(02/03): no change pulm consulted 02/01 UA (01/23): LE 500, RBC >50, WBC >50, Moderate WBC clumps, Bacteria 20-50, Moderate yeast Blood culture (01/23): No growth; Blood cultures(01/26): No growth Urine culture (01/23): 4+ yeast Sputum culture(02/03): 4+ GNR Sputum culture (01/12): Acinetobacter Renee/Haem, Proteus Mirabilis Esbl (from [facility] hospitalization, speciated after discharge) ID following Continue vancomycin(01/30-01/31, 02/04-) and Merrem(01/28-01/31, 02/04-) recommended Cefiderocol if new sputum culture grows Acinetobacter; will n eed to check further sensitivities Completed 5 days of Micafungin (01/27-01/31) 01/31 - Patients IV came out, PICC line ordered unsuccessful obtaining PICC, patient not very compliant per report and difficulty placing picc in past 7/8 - Peripheral IV access gained yesterday and Antibiotics resumed Hx of CVA Stable, nonverbal Dietitian consulted. Tube feeding as tolerated Chronic Hypoxic Respiratory Failure s/p Tracheostomy / COPD Currently on 5L trach collar - baseline is ~4L PRN nebs Hyperglycemia in DM1 Continue correction scale insulin. None anion gap metabolic acidosis. CKD Stage IV hypernatremia, resolved metabolic acidosis Nephrology consulted at ~baseline Continue to monitor renal function Hypertension - Continue home antihypertensives Hypothyroidism - Continue home levothyroxine Depressive Disorder - Continue home escitalopram BPH - Continue tamsulosin GERD/Bile acid reflux suspect brown-colored fluid suctioned from the mouth is from gastric reflux. Continue Protonix Sucralfate via PEG VTE: Heparin sq Code: Full Dispo: NH, ~3 days awaiting repeat sputum culture
[2023-02-05] MEDS ORDERED: GLUCAGON 1 MG/VIAL IM PRN (12:02)
[2023-02-05] MEDS ORDERED: D50W 25 GM/50 ML SYRINGE IV PRN (12:02)
[2023-02-05] MEDS: TAMSULOSIN 0.4 MG SR CAP FT SCH (21:00)
[2023-02-06 03:56] LABS: Absolute Lymphocytes (CBC) 2.9 K/uL (0.7-4.9); Hematocrit 29.3 % (39.6-49.0); Lymphocytes % 27.7 % (15.3-44.8); MCV 84.1 fL (80-100); MPV 7.3 fL (7.6-11.3); RBC Red Blood Cell Count 3.48 M/uL (4.33-5.43)
[2023-02-06 04:09] LABS: Albumin 1.4 g/dL (3.4-5.0); Bilirubin Total 0.2 mg/dL (0.2-1.0); Protein, Total 6.1 g/dL (6.4-8.2)
[2023-02-06] MEDS: Pantoprazole (granules) 40 MG/BLIST PACKET FT SCH (06:35)
[2023-02-06] MEDS: INSULIN -REGULAR HUMAN 50 UNIT/0.5 ML ML SQ SCH ×3 (06:35→18:00)
[2023-02-06] MEDS: LEVOTHYROXINE SOD 0.025 MG TAB FT SCH (06:35)
--- NOTE | 2023-02-06 06:50 | P.PN ---
Date of Service: 02/06/23 Subjective: no changes per patient slight increase in residuals ROS: 10 point ROS as noted above, otherwise negative Physical Exam: GEN: Alert, oriented, PEG tube in place HEENT: Normal conjunctiva, sclera anicteric CV: Regular rate and rhythm, no edema Pulm: Nonlabored respirations on 5L trach collar, diminished at bases b/l, +secretions ABD: Soft, nontender, nondistended Neuro: nonverbal, but nods / points at letter chart, normal affect PEG tube in place Trach in place vitals reviewed Problem List: Sepsis secondary to Aspiration Pneumonia +/- Catheter-Associated Urinary Tract Infection (POA) Hx of CVA Chronic Hypoxic Respiratory Failure s/p Tracheostomy / COPD Hyperglycemia in DM1 CKD Stage IV hypernatremia, resolved metabolic acidosis Hypertension Hypothyroidism Depressive Disorder BPH GERD/Bile acid reflux Sepsis secondary to Aspiration Pneumonia +/- Catheter-Associated Urinary Tract Infection (POA) pulm consulted; CXR stable blood/urine cultures without growth. Urine noted yeast Sputum culture 02/03: MDR proteus prior sputum 01/11: Acinetobacter patient improving despite neither of these being sensitive to antibiotics he has received due to IV loss last week / weekend, patient did not receive antibiotics for 1-2 days, and labs /vitals still improving discussed with ID and Pulm - suspect possible colonization dc antibiotics 02/06, monitor next 48hrs or so if stable, dc back to care home off antibiotics unsuccessful obtaining PICC Hx of CVA Stable, nonverbal Dietitian consulted. Tube feeding as tolerated Chronic Hypoxic Respiratory Failure s/p Tracheostomy / COPD Currently on 5L trach collar - baseline is ~4L PRN nebs Hyperglycemia in DM1 Continue correction scale insulin. None anion gap metabolic acidosis. CKD Stage IV hypernatremia, resolved metabolic acidosis Nephrology consulted at ~baseline Continue to monitor renal function Hypertension - Continue home antihypertensives Hypothyroidism - Continue home levothyroxine Depressive Disorder - Continue home escitalopram BPH - Continue tamsulosin GERD/Bile acid reflux suspect brown-colored fluid suctioned from the mouth is from gastric reflux. Continue Protonix Sucralfate via PEG VTE: Heparin sq Code: Full Dispo: NH, ~2-3 days
--- NOTE | 2023-02-06 08:03 | RAD REPORT ---
EXAM DESCRIPTION: RADChest Single View02/06/2023 5:19 am CLINICAL HISTORY: f/u opacities COMPARISON: Chest Single View dated 02/03/2023; Chest Single View dated 02/01/2023; Chest Single View da mendoza 01/23/2023; Chest Single View dated 01/13/2023 TECHNIQUE: Portable AP view of the chest. FINDINGS: Tracheostomy tube in place. Decreased inspiratory effort limits evaluation. Elevation of t he right hemidiaphragm and right basilar opacities suggestive of atelectasis, stable. Less pronounced left basilar streaky opacities, also stable PE No pneumothorax or effusion. The cardiomediastinal c ontours are unremarkable. IMPRESSION: No acute cardiopulmonary process. Stable findings as above.
[2023-02-06] MEDS: Banana Flakes/T-Galactooligos 1 Dose Packet FT SCH ×2 (09:00→21:00)
[2023-02-06] MEDS: SODIUM BICARB 325 MG TAB PO SCH ×2 (09:20→21:25)
[2023-02-06] MEDS: AMLODIPINE 2.5 MG TAB PO SCH (09:20)
[2023-02-06] MEDS: SUCRALFATE 1GM/10ML UCUP FT SCH ×4 (09:21→21:25)
[2023-02-06] MEDS: Meropenem 1,000 MG in NA CHLORIDE 0.9% 100 ML IV SCH (09:32)
[2023-02-06] MEDS: INSULIN GLARGINE 100 UNIT/ML SQ SCH (09:32)
--- NOTE | 2023-02-06 09:36 | P.PN ---
Date of Service: 02/06/23 Chief Complaint: Pneumonia, UTI, Severe Sepsis Subjective: No new changes. No acute events reported over the weekend. Patient resting comfortably in bed. Patient's mother at bedside. Physical Examination Temp Pulse Resp BP Pulse Ox 97.1 F 59 16 123/62 96 02/06/23 08:00 02/06/23 09:20 02/06/23 08:00 02/06/23 09:20 02/06/23 08:00 General: In no apparent distress A&Ox3. HEENT: Atraumatic, Normocephalic Neck: Tracheostomy Respiratory: Diminished, trach collar 5LPM. Cardiovascular: No edema, Normal pulses Gastrointestinal: Normal bowel sounds, PEG tube Musculoskeletal: Left sided weakness Left BKA; amputation of all toes right foot Integumentary: Pressure ulcer sacrum stage 2. Urinary: Chronic Ortega catheter draining yellow urine Laboratory Data - Reviewed Microbiology Data - Reviewed Imagings Data: - CT Abdomen 01/23: "FINDINGS: The evaluation of solid organs, vessels and bowel is limited secondary to the lack of contrast administration. Opacities within the lower lobes have the appearance of pneumonia. Gallbladder is distended. Stone within the gallbladder neck. Percutaneous tube within the stomach. The liver, spleen, pancreas, adrenals and kidneys appear grossly normal. Large amount stool within the colon . There is no evidence of diverticulitis" Medication List: Reviewed Assessment and Plan Problem List Chronic respiratory failure s/p tracheostomy Chronic ortega catheter Hypertension Diabetes Mellitus Type I Recurrent Aspiration pneumonia Sepsis Hx CVA Anemia Hypothyroidism CKD stage IV Severe PCM Pneumonia - CT Abdomen/Pelvis 01/23: "Moderate alveolar opacities within the lower lobes probably pneumonia. Cholelithiasis with gallbladder distention. Large amount stool within the colon." - XR chest 01/23: "Bibasilar lung opacities probably pneumonia" - Influenza A&B Negative - Previously on Merrem (01/28-02/06) and Vancomycin (01/26-02/04) - Sputum culture 02/03: Proteus mirabilis , resistant to all antibiotics tested - Pulmonology following Fungal UTI - Urinalysis 01/23: LE 500, RBC >50, WBC >50, Moderate WBC clumps, Bacteria 20- 50, Moderate yeast - Urine culture 01/23: 4+ yeast NOT gavino albicans - Patient had been treated with Fluconazole x 14 days within the last 30 days - Completed 5 days of Micafungin (01/27-01/31) Blood cultures 01/23: No growth to date Leukocytosis Improving (WBC 10.6) Afebrile Recommendations Sputum culture with multidrug resistant proteus. Possibly colonization. White count improving and remains afebrile. Antibiotics have been discontinued, will continue to monitor patient for 48 hours. - Continue to monitor WBC and fever trends - Pulmonology following - Aspiration precautions - Strict blood glucose control - Supportive care and nutritional support as needed ID will follow patient as needed. Case discussed with Flavio Merrill
[2023-02-06] MEDS: VITAL AF 1,000 ML BOT FT SCH ×3 (09:43→17:05)
--- NOTE | 2023-02-06 10:52 | P.PN ---
Date of Service: 02/06/23 Vital Signs Temp Pulse Resp BP Pulse Ox 97.1 F 59 16 123/62 96 02/06/23 08:00 02/06/23 09:20 02/06/23 08:00 02/06/23 09:20 02/06/23 08:00 Medications Acetaminophen (Acetaminophen 325 Mg Tablet) 650 mg PO Q6H PRN PRN Reason: Pain scale 2-4 (Mild) Last Admin: 01/30/23 01:42 Dose: 650 mg Albuterol Sulfate (Albuterol 2.5 Mg/3 Ml Neb Radha) 2.5 mg NEB [id number] PRN PRN Reason: SHORTNESS OF BREATH Amlodipine Besylate (Amlodipine 2.5 Mg Tab) 2.5 mg PO DAILY [facility] Last Admin: 02/06/23 09:20 Dose: 2.5 mg Dextrose (D10w 250 Ml Bag) 125 ml IV PRN PRN; Protocol PRN Reason: HYPOGLYCEMIA Last Admin: 02/04/23 18:56 Dose: 125 ml Glucagon (Glucagon 1 Mg/Vial) 1 mg IM 1X PRN; Protocol PRN Reason: HYPOGLYCEMIA Sodium Chloride (Sodium Chloride) 250 mls @ 0 mls/hr IV .Q0M MIGUEL ÁNGEL Meropenem 1,000 mg/ Sodium (Chloride) 100 mls @ 200 mls/hr IV Q12HR MIGUEL ÁNGEL Last Admin: 02/06/23 09:32 Dose: 100 mls Vancomycin HCl 1.25 gm/ Sodium (Chloride) 250 mls @ 166.667 mls/hr IVPB Q48H MIGUEL ÁNGEL; Protocol Last Admin: 02/04/23 11:17 Dose: 250 mls Insulin Glargine (Insulin Glargine 100 Unit/Ml) 5 unit SQ BID MIGUEL ÁNGEL Last Admin: 02/06/23 09:32 Dose: 5 unit Insulin Human Regular (Insulin -Regular Human 50 Unit/0.5 Ml Ml) 0 unit SQ Q6HR MIGUEL ÁNGEL; Protocol Last Admin: 02/06/23 06:35 Dose: 2 unit Ipratropium [place] (Ipratropium Brom 0.5mg/2.5ml) 0.5 mg NEB [id number] PRN PRN Reason: SHORTNESS OF BREATH Levothyroxine Sodium (Levothyroxine Sod 0.025 Mg Tab) 0.025 mg FT ACB MIGUEL ÁNGEL Last Admin: 02/06/23 06:35 Dose: 0.025 mg Nutritional Formula (Vital Af 1,000 Ml Bot) 275 ml FT QID [facility] Last Admin: 02/06/23 09:43 Dose: Not Given Ondansetron HCl (Ondansetron 4 Mg/2 Ml Vial) 4 mg IV Q8HP PRN PRN Reason: NAUSEA / VOMITING Last Admin: 01/26/23 13:50 Dose: 4 mg Pantoprazole Sodium (Pantoprazole (Granules) 40 Mg/Blist Packet) 40 mg FT DAILYAC [facility]; Protocol Last Admin: 02/06/23 06:35 Dose: 40 mg Sodium Bicarbonate (Sodium Bicarb 325 Mg Tab) 650 mg PO BID [facility] Last Admin: 02/06/23 09:20 Dose: 650 mg Sodium Chloride (Flush Normal Saline 10 Ml) 10 ml IV BID [facility] Last Admin: 02/06/23 09:21 Dose: 10 ml Sodium Chloride (Sodium Chloride 0.9% 10ml Inj) 10 ml IV UD PRN PRN Reason: Diluant Sucralfate (Sucralfate 1gm/10ml Ucup) 1 gm FT QID [facility] Last Admin: 02/06/23 09:21 Dose: 1 gm Tamsulosin HCl (Tamsulosin 0.4 Mg Sr Cap) 0.4 mg FT BEDTIME [facility] Last Admin: 02/05/23 21:00 Dose: 0.4 mg Microbiology Results 01/23/23 19:25 Blood - Blood Aerobic Blood Culture - Final No growth in 5 days. 01/23/23 19:25 Blood - Blood Anaerobic Blood Culture - Final No growth in 5 days. 01/23/23 19:25 Blood - Blood Aerobic Blood Culture - Final No growth in 5 days. 01/23/23 19:25 Blood - Blood Anaerobic Blood Culture - Final No growth in 5 days. 01/23/23 20:05 Clean Catch Urine [place] Count - Final >100,000 CFU/ML. 01/23/23 20:05 Clean Catch Urine - Final 01/23/23 18:39 Nasopharnyx Influenza Type A Antigen Screen - Final 01/23/23 18:39 Nasopharnyx Influenza Type B Antigen Screen - Final Assessment/ Plan: Nephrology No dyspnea No chest pain Nurse reports high residuals this morning No acute events overnight Vitals, medications, blood work and imaging reviewed in the chart. General: In no apparent distress, Cooperative HEENT: Atraumatic Neck: Supple. Trach. Respiratory: Normal air movement Cardiovascular: No edema, Regular rate/rhythm Gastrointestinal: Soft and benign, Non-distended PEG Musculoskeletal: No clubbing, No contractures Left BKA Integumentary: No rashes, No cyanosis Simmons Blood work reviewed in the chart. Imagings Data: EXAM DESCRIPTION: JOEChest Single View01/23/2023 7:34 pm CLINICAL HISTORY: Chest pain COMPARISON: January 13, 2023 FINDINGS: No significant change bibasilar lung opacities. Chronic elevation right hemidiaphragm. Heart is normal size. Tracheostomy tube in place IMPRESSION: Bibasilar lung opacities probably pneumonia EXAM DESCRIPTION: CT - Abdomen Pelvis Wo Contrast - 01/23/2023 7:47 pm CLINICAL HISTORY: Abdominal pain COMPARISON: November 2022 TECHNIQUE: Computed axial tomography of the abdomen and pelvis was obtained. IV and oral contrast were not requested. All CT scans are performed using dose optimization technique as appropriate and may include automated exposure control or mA/KV adjustment according to patient size. FINDINGS: The evaluation of solid organs, vessels and bowel is limited secondary to the lack of contrast administration. Opacities within the lower lobes have the appearance of pneumonia Gallbladder is distended. Stone within the gallbladder neck. Percutaneous tube within the stomach. The liver, spleen, pancreas, adrenals and kidneys appear grossly normal. Large amount stool within the colon . There is no evidence of diverticulitis. IMPRESSION: Moderate alveolar opacities within the lower lobes probably pneumonia Cholelithiasis with gallbladder distention Large amount stool within the colon Conclusions/Impression: Stage I KATLYN, resolved CKD III with proteinuria -No NSAIDs Hypernatremia, resolved -Maintain hydration Hypokalemia, resolved Metabolic Acidosis -Continue bicarb through PEG HTN with CKD -Continue low dose Amlodipine DM II with CKD -RISS -Continue insulin glargine Hypoalbuminemia Severe protein malnutrition with decreased functional ability PEG -Continue Nepro -PT as tolerated Anemia in chronic illness -Monitor H&H -PRBC prn Case reviewed with Dr. Blair
--- NOTE | 2023-02-06 11:48 | P.PN ---
Subjective Date of Service: 02/06/23 Chief Complaint: Pneumonia Subjective: Improving (Patient is clinically improving and no fever hemodynamically stable) Review of Systems is unable to be obtained Physical Examination - Vital Signs Temperature: 97.1 F Blood Pressure: 123/62 Pulse: 59 Respirations: 16 Pulse Ox (%): 96 - Physical Exam General: Alert, Cooperative Respiratory: Clear to auscultation bilaterally, Diminished Cardiovascular: No edema Assessment And Plan - Current Problems (Diagnosis) (1) Pneumonia Current Visit: Yes Status: Acute Plan: Patient appears to have bilateral lower lobe pneumonia sputum cultures show Proteus that is multiresistant but is clinically improving and his white count is declining his kidney function is also improving clinical pneumonia probably has underlying colonization with multiresistant Proteus unless clinical condition deteriorates recommend against antibiotics so ordered a procalcitonin level I have DC'd meropenem vancomycin prognosis poor Qualifiers: Pneumonia type: due to unspecified organism Laterality: bilateral Lung location: lower lobe of lung Qualified Code(s): J18.9 - Pneumonia, unspecified organism Physician Review: Patient Assessed, Agree with Above Assessment and Plan
--- NOTE | 2023-02-06 20:12 | P.PN ---
Date of Service: 02/07/23 Subjective: ROS: 10 point ROS as noted above, otherwise negative Physical Exam: GEN: Alert, oriented, PEG tube in place HEENT: Normal conjunctiva, sclera anicteric CV: Regular rate and rhythm, no edema Pulm: Nonlabored respirations on 5L trach collar, diminished at bases b/l, +secretions ABD: Soft, nontender, nondistended Neuro: nonverbal, but nods / points at letter chart, normal affect Problem List: 1. Sepsis secondary to Aspiration Pneumonia +/- Catheter-Associated Urinary Tract Infection (POA) 2. Hx of CVA 3. Chronic Hypoxic Respiratory Failure s/p Tracheostomy / COPD 4. Hyperglycemia in DM1 5. CKD Stage IV 6. Hypernatremia, resolved 7. Metabolic acidosis 8. Hypertension 9.Hypothyroidism 10. Depressive Disorder 11. BPH 12. GERD/Bile acid reflux PLAN pulm consulted; CXR stable blood/urine cultures without growth. Urine noted yeast Sputum culture 02/03: MDR proteus prior sputum 01/11: Acinetobacter patient improving despite neither of these being sensitive to antibiotics he has received due to IV loss last week / weekend, patient did not receive antibiotics for 1-2 days, and labs /vitals still improving discussed with ID and Pulm - suspect possible colonization dc antibiotics 02/06, monitor next 48hrs or so if stable, dc back to detention off antibiotics unsuccessful obtaining PICC Dietitian consulted. Tube feeding as tolerated Sucralfate via PEG Currently on 5L trach collar - baseline is ~4L PRN nebs Continue correction scale insulin. Nephrology consulted renal function at ~baseline Continue to monitor renal function Continue home antihypertensives Continue home levothyroxine Continue home escitalopram Continue tamsulosin Continue Protonix VTE: Heparin sq
[2023-02-06] MEDS: TAMSULOSIN 0.4 MG SR CAP FT SCH (21:25)
[2023-02-07] MEDS: INSULIN -REGULAR HUMAN 50 UNIT/0.5 ML ML SQ SCH ×4 (03:39→18:17)
[2023-02-07] MEDS: VITAL AF 1,000 ML BOT FT SCH ×5 (03:39→21:00)
[2023-02-07] MEDS: INSULIN GLARGINE 100 UNIT/ML SQ SCH ×3 (03:43→21:33)
[2023-02-07 04:14] LABS: Absolute Lymphocytes (CBC) 3.2 K/uL (0.7-4.9); Hematocrit 30.2 % (39.6-49.0); MPV 7.4 fL (7.6-11.3); RBC Red Blood Cell Count 3.59 M/uL (4.33-5.43)
[2023-02-07 04:25] LABS: Magnesium 2.2 mg/dL (1.6-2.4); Potassium 4.5 mEq/L (3.5-5.1)
[2023-02-07] MEDS: Pantoprazole (granules) 40 MG/BLIST PACKET FT SCH (05:42)
[2023-02-07] MEDS: LEVOTHYROXINE SOD 0.025 MG TAB FT SCH (05:42)
[2023-02-07] MEDS: Banana Flakes/T-Galactooligos 1 Dose Packet FT SCH ×2 (09:00→21:00)
--- NOTE | 2023-02-07 09:10 | P.PN ---
Date of Service: 02/07/23 Chief Complaint: Pneumonia, UTI, Severe Sepsis Subjective: No new or worsening complaints. Remains on 5L trach collar. In no apparent distress. Remains afebrile. No acute events reported overnight. Physical Examination Temp Pulse Resp BP Pulse Ox 97.6 F 90 16 155/81 H 98 02/07/23 08:00 02/07/23 08:00 02/07/23 08:00 02/07/23 08:00 02/07/23 08:00 General: In no apparent distress A&Ox3. HEENT: Atraumatic, Normocephalic Neck: Tracheostomy Respiratory: Diminished, trach collar 5LPM. Cardiovascular: No edema, Normal pulses Gastrointestinal: Normal bowel sounds, PEG tube Musculoskeletal: Left sided weakness Left BKA; amputation of all toes right foot Integumentary: Pressure ulcer sacrum stage 2. Urinary: Chronic Ortega catheter draining yellow urine Laboratory Data - Reviewed Microbiology Data - Reviewed Imagings Data: - CT Abdomen 01/23: "FINDINGS: The evaluation of solid organs, vessels and bowel is limited secondary to the lack of contrast administration. Opacities within the lower lobes have the appearance of pneumonia. Gallbladder is distended. Stone within the gallbladder neck. Percutaneous tube within the stomach. The liver, spleen, pancreas, adrenals and kidneys appear grossly normal. Large amount stool within the colon . There is no evidence of diverticulitis" Medication List: Reviewed Assessment and Plan Problem List Chronic respiratory failure s/p tracheostomy BPH Chronic ortega catheter GERD Hypertension Hx CVA Hypothyroidism CKD stage IV Diabetes Mellitus Type I Recurrent Aspiration pneumonia Sepsis, resolved Anemia Severe PCM Pneumonia - CT Abdomen/Pelvis 01/23: "Moderate alveolar opacities within the lower lobes probably pneumonia. Cholelithiasis with gallbladder distention. Large amount stool within the colon." - XR chest 01/23: "Bibasilar lung opacities probably pneumonia" - Influenza A&B Negative - Previously on Merrem (01/28-02/06) and Vancomycin (01/26-02/04) - Sputum culture 02/03: Proteus mirabilis (lea-resistant) and Pseudomonas aeruginosa - Pulmonology following Fungal UTI - Urinalysis 01/23: LE 500, RBC >50, WBC >50, Moderate WBC clumps, Bacteria 20- 50, Moderate yeast - Urine culture 01/23: 4+ yeast NOT gavino albicans - Patient had been treated with Fluconazole x 14 days within the last 30 days - Completed 5 days of Micafungin (01/27-01/31) Blood cultures 01/23: No growth to date Leukocytosis Improving (WBC 10.3) Afebrile Recommendations Sputum culture with lea-resistant proteus mirabilis and MDR pseudomonas. Patient may benefit from Colistin inhalation if readily available. Antibiotics have been discontinued, will continue to monitor patient for 48 hours. - White count improving, remains afebrile, clinically stable. - Continue to monitor WBC and fever trends - Pulmonology following - Aspiration precautions - Strict blood glucose control - Supportive care and nutritional support as needed ID will follow patient as needed. Case discussed with Flavio Merrill
[2023-02-07] MEDS: AMLODIPINE 2.5 MG TAB PO SCH (10:06)
[2023-02-07] MEDS: SODIUM BICARB 325 MG TAB PO SCH ×2 (10:06→21:33)
[2023-02-07] MEDS: SUCRALFATE 1GM/10ML UCUP FT SCH ×4 (10:07→21:00)
--- NOTE | 2023-02-07 20:53 | P.PN ---
Date of Service: 02/07/23 Vital Signs Temp Pulse Resp BP Pulse Ox 97.5 F 92 H 16 152/76 H 99 02/07/23 20:00 02/07/23 20:00 02/07/23 20:00 02/07/23 20:00 02/07/23 20:00 Medications Acetaminophen (Acetaminophen 325 Mg Tablet) 650 mg PO Q6H PRN PRN Reason: Pain scale 2-4 (Mild) Last Admin: 01/30/23 01:42 Dose: 650 mg Albuterol Sulfate (Albuterol 2.5 Mg/3 Ml Neb Radha) 2.5 mg NEB [id number] PRN PRN Reason: SHORTNESS OF BREATH Amlodipine Besylate (Amlodipine 2.5 Mg Tab) 2.5 mg PO DAILY [facility] Last Admin: 02/07/23 10:06 Dose: 2.5 mg Dextrose (D10w 250 Ml Bag) 125 ml IV PRN PRN; Protocol PRN Reason: HYPOGLYCEMIA Last Admin: 02/04/23 18:56 Dose: 125 ml Glucagon (Glucagon 1 Mg/Vial) 1 mg IM 1X PRN; Protocol PRN Reason: HYPOGLYCEMIA Sodium Chloride (Sodium Chloride) 250 mls @ 0 mls/hr IV .Q0M [facility] Insulin Glargine (Insulin Glargine 100 Unit/Ml) 5 unit SQ BID [facility] Last Admin: 02/07/23 10:28 Dose: 5 unit Insulin Human Regular (Insulin -Regular Human 50 Unit/0.5 Ml Ml) 0 unit SQ Q6HR [facility]; Protocol Last Admin: 02/07/23 18:17 Dose: 4 unit Ipratropium [place] (Ipratropium Brom 0.5mg/2.5ml) 0.5 mg NEB [id number] PRN PRN Reason: SHORTNESS OF BREATH Levothyroxine Sodium (Levothyroxine Sod 0.025 Mg Tab) 0.025 mg FT ACB [facility] Last Admin: 02/07/23 05:42 Dose: 0.025 mg Nutritional Formula (Vital Af 1,000 Ml Bot) 275 ml FT QID MIGUEL ÁNGEL Last Admin: 02/07/23 18:18 Dose: 275 ml Ondansetron HCl (Ondansetron 4 Mg/2 Ml Vial) 4 mg IV Q8HP PRN PRN Reason: NAUSEA / VOMITING Last Admin: 01/26/23 13:50 Dose: 4 mg Pantoprazole Sodium (Pantoprazole (Granules) 40 Mg/Blist Packet) 40 mg FT DAILYAC [facility]; Protocol Last Admin: 02/07/23 05:42 Dose: 40 mg Sodium Bicarbonate (Sodium Bicarb 325 Mg Tab) 650 mg PO BID [facility] Last Admin: 02/07/23 10:06 Dose: 650 mg Sodium Chloride (Flush Normal Saline 10 Ml) 10 ml IV BID [facility] Last Admin: 02/07/23 10:07 Dose: 10 ml Sodium Chloride (Sodium Chloride 0.9% 10ml Inj) 10 ml IV UD PRN PRN Reason: Diluant Sucralfate (Sucralfate 1gm/10ml Ucup) 1 gm FT QID [facility] Last Admin: 02/07/23 18:18 Dose: 1 gm Tamsulosin HCl (Tamsulosin 0.4 Mg Sr Cap) 0.4 mg FT BEDTIME [facility] Last Admin: 02/06/23 21:25 Dose: 0.4 mg Microbiology Results 01/23/23 19:25 Blood - Blood Aerobic Blood Culture - Final No growth in 5 days. 01/23/23 19:25 Blood - Blood Anaerobic Blood Culture - Final No growth in 5 days. 01/23/23 19:25 Blood - Blood Aerobic Blood Culture - Final No growth in 5 days. 01/23/23 19:25 Blood - Blood Anaerobic Blood Culture - Final No growth in 5 days. 01/23/23 20:05 Clean Catch Urine [place] Count - Final >100,000 CFU/ML. 01/23/23 20:05 Clean Catch Urine - Final 01/23/23 18:39 Nasopharnyx Influenza Type A Antigen Screen - Final 01/23/23 18:39 Nasopharnyx Influenza Type B Antigen Screen - Final Assessment/ Plan: Nephrology No dyspnea No chest pain No acute events overnight Vitals, medications, blood work and imaging reviewed in the chart. General: In no apparent distress, Cooperative HEENT: Atraumatic Neck: Supple. Trach. Respiratory: Normal air movement Cardiovascular: No edema, Regular rate/rhythm Gastrointestinal: Soft and benign, Non-distended PEG Musculoskeletal: No clubbing, No contractures Left BKA Integumentary: No rashes, No cyanosis Simmons Blood work reviewed in the chart. Imagings Data: EXAM DESCRIPTION: Cesar Single View6/ 7:34 pm CLINICAL HISTORY: Chest pain COMPARISON: January 13, 2023 FINDINGS: No significant change bibasilar lung opacities. Chronic elevation right hemidiaphragm. Heart is normal size. Tracheostomy tube in place IMPRESSION: Bibasilar lung opacities probably pneumonia EXAM DESCRIPTION: CT - Abdomen Pelvis Wo Contrast - 01/23/2023 7:47 pm CLINICAL HISTORY: Abdominal pain COMPARISON: November 2022 TECHNIQUE: Computed axial tomography of the abdomen and pelvis was obtained. IV and oral contrast were not requested. All CT scans are performed using dose optimization technique as appropriate and may include automated exposure control or mA/KV adjustment according to patient size. FINDINGS: The evaluation of solid organs, vessels and bowel is limited secondary to the lack of contrast administration. Opacities within the lower lobes have the appearance of pneumonia Gallbladder is distended. Stone within the gallbladder neck. Percutaneous tube within the stomach. The liver, spleen, pancreas, adrenals and kidneys appear grossly normal. Large amount stool within the colon . There is no evidence of diverticulitis. IMPRESSION: Moderate alveolar opacities within the lower lobes probably pneumonia Cholelithiasis with gallbladder distention Large amount stool within the colon Conclusions/Impression: Stage I KATLYN, resolved CKD III with proteinuria -No NSAIDs Hypernatremia, resolved -Maintain hydration Hypokalemia, resolved Metabolic Acidosis -Continue bicarb through PEG HTN with CKD -Continue low dose Amlodipine DM II with CKD -RISS -Continue insulin glargine Hypoalbuminemia Severe protein malnutrition with decreased functional ability PEG -Continue Nepro -PT as tolerated Anemia in chronic illness -Monitor H&H -PRBC prn
[2023-02-07] MEDS: TAMSULOSIN 0.4 MG SR CAP FT SCH (21:00)
[2023-02-08] MEDS: INSULIN -REGULAR HUMAN 50 UNIT/0.5 ML ML SQ SCH ×4 (00:21→18:42)
[2023-02-08 03:54] LABS: Absolute Lymphocytes (CBC) 3.1 K/uL (0.7-4.9); Lymphocytes % 28.3 % (15.3-44.8); MCV 83.9 fL (80-100); MPV 7.3 fL (7.6-11.3); RBC Red Blood Cell Count 3.46 M/uL (4.33-5.43)
[2023-02-08 04:03] LABS: Magnesium 2.4 mg/dL (1.6-2.4); Phosphorus 2.7 mg/dL (2.5-4.9); Potassium 4.1 mEq/L (3.5-5.1)
[2023-02-08] MEDS: Pantoprazole (granules) 40 MG/BLIST PACKET FT SCH (06:00)
[2023-02-08] MEDS: LEVOTHYROXINE SOD 0.025 MG TAB FT SCH (06:28)
[2023-02-08] MEDS: VITAL AF 1,000 ML BOT FT SCH ×4 (09:00→21:00)
[2023-02-08] MEDS: Banana Flakes/T-Galactooligos 1 Dose Packet FT SCH ×2 (09:00→21:00)
--- NOTE | 2023-02-08 09:15 | P.PN ---
Date of Service: 02/08/23 Chief Complaint: Pneumonia, UTI, Severe Sepsis Subjective: Patient seen and examined at bedside. In no apparent distress. Patient denies any nausea, vomiting, diarrhea or abdominal pain. Denies any chest pain, cough, or shortness of breath. No acute events reported overnight. Physical Examination Temp Pulse Resp BP Pulse Ox 97.5 F 83 16 158/85 H 96 02/08/23 08:00 02/08/23 08:00 02/08/23 08:00 02/08/23 08:00 02/08/23 08:00 General: In no apparent distress A&Ox3. HEENT: Atraumatic, Normocephalic Neck: Tracheostomy Respiratory: Diminished, trach collar 5LPM. Cardiovascular: No edema, Normal pulses Gastrointestinal: Normal bowel sounds, PEG tube Musculoskeletal: Left sided weakness Left BKA; amputation of all toes right foot Integumentary: Pressure ulcer sacrum stage 2. Urinary: Chronic Ortega catheter draining yellow urine Laboratory Data - Reviewed Microbiology Data - Reviewed Imagings Data: - CT Abdomen 01/23: "FINDINGS: The evaluation of solid organs, vessels and bowel is limited secondary to the lack of contrast administration. Opacities within the lower lobes have the appearance of pneumonia. Gallbladder is distended. Stone within the gallbladder neck. Percutaneous tube within the stomach. The liver, spleen, pancreas, adrenals and kidneys appear grossly normal. Large amount stool within the colon . There is no evidence of diverticulitis" Medication List: Reviewed Assessment and Plan Problem List Chronic respiratory failure s/p tracheostomy BPH Chronic ortega catheter GERD Hypertension Hx CVA Hypothyroidism CKD stage IV Diabetes Mellitus Type I Recurrent Aspiration pneumonia Sepsis, resolved Anemia Severe PCM Pneumonia - CT Abdomen/Pelvis 01/23: "Moderate alveolar opacities within the lower lobes probably pneumonia. Cholelithiasis with gallbladder distention. Large amount stool within the colon." - XR chest 01/23: "Bibasilar lung opacities probably pneumonia" - Influenza A&B Negative - Previously on Merrem (01/28-02/06) and Vancomycin (01/26-02/04) - Sputum culture 02/03: Proteus mirabilis (lea-resistant) and Pseudomonas aeruginosa MDR - Pulmonology following Fungal UTI - Urinalysis 01/23: LE 500, RBC >50, WBC >50, Moderate WBC clumps, Bacteria 20- 50, Moderate yeast - Urine culture 01/23: 4+ yeast NOT gavino albicans - Patient had been treated with Fluconazole x 14 days within the last 30 days - Completed 5 days of Micafungin (01/27-01/31) Blood cultures 01/23: No growth to date WBC 11 Afebrile Recommendations Sputum culture with lea-resistant Proteus mirabilis and MDR Pseudomonas. Possibly colonization. Pulmonology also following. Antibiotics have been discontinued, will continue to monitor patient for 48 hours for worsening signs/symptoms. Remains afebrile, clinically stable. - Continue to monitor WBC and fever trends - Aspiration precautions - Strict blood glucose control ID will follow patient as needed. Case discussed with Flavio Merrill
[2023-02-08] MEDS: INSULIN GLARGINE 100 UNIT/ML SQ SCH ×2 (09:26→21:30)
[2023-02-08] MEDS: AMLODIPINE 2.5 MG TAB PO SCH (09:27)
[2023-02-08] MEDS: SODIUM BICARB 325 MG TAB PO SCH (09:27)
[2023-02-08] MEDS: SUCRALFATE 1GM/10ML UCUP FT SCH ×4 (09:28→21:30)
--- NOTE | 2023-02-08 11:40 | P.PN ---
Nephrology note (S) Pt remains in stable condition, remains on TC, O2 requirements stable, on bolus TF. (O) Vitals, medications, blood work and imaging reviewed in the chart. General: Thin, frail HEENT: Atraumatic Neck: Supple. Trach collar Respiratory: b/l air entry, reduced BS Rt base Cardiovascular: No edema, Regular rate/rhythm Gastrointestinal: Soft and benign, Non-distended PEG present, ortega present Musculoskeletal: Muscle mass loss Left BKA Integumentary: No rashes Blood work reviewed in the chart. Conclusions/Impression: Stage 1 KATLYN (recurrent) on underlying CKD IV with proteinuria, KATLYN since resolved -Frequent KATLYN episodes due to pre-renal azotemia, dehydration/vol depletion, UTI, sepsis, other. Cr level has recovered back to baseline levels and remains stable. Family had been concerned about (longer-term) [employer] risk which was discussed recently, limitations of eGFR calculations also explained, pt does have loss of muscle mass. Hypernatremia, resolved -Free water flushes resumed with bolus feeds. Monitor Na levels Chronic resp failure -stable basilar infiltrates, pt with MDR organism growth, plan to limit few Abx options to symptomatic infections Metabolic Acidosis 2nd to CKD, other -Continue sodium bicarb through PEG HTN with CKD -Monitor BP, did place back on lower dose Amlodipine. Given his CAD and DM, targ et BP < 130/80 Recurrent lower urinary tract infectious disease, in the setting of indwelling bladder catheter -s/p treatment with anti fungal, cont ortega care, exchange every 30 days Amrit Howard MD, EMMA
[2023-02-08] MEDS: NA CHLORIDE 0.9% 1,000 ML IV SCH (15:00)
[2023-02-08] MEDS ORDERED: NA CHLORIDE 0.9% 250 ML IV ONE (15:00)
[2023-02-08] MEDS: TAMSULOSIN 0.4 MG SR CAP FT SCH (21:30)
[2023-02-09] MEDS: NA CHLORIDE 0.9% 1,000 ML IV SCH (03:13)
[2023-02-09 04:30] LABS: Magnesium 2.2 mg/dL (1.6-2.4); Phosphorus 2.6 mg/dL (2.5-4.9); Potassium 4.4 mEq/L (3.5-5.1)
[2023-02-09] MEDS: INSULIN -REGULAR HUMAN 50 UNIT/0.5 ML ML SQ SCH ×3 (05:38→12:00)
[2023-02-09] MEDS: Pantoprazole (granules) 40 MG/BLIST PACKET FT SCH (05:39)
[2023-02-09] MEDS: Banana Flakes/T-Galactooligos 1 Dose Packet FT SCH (07:31)
[2023-02-09] MEDS: SUCRALFATE 1GM/10ML UCUP FT SCH ×2 (09:00→12:37)
[2023-02-09] MEDS ORDERED: SODIUM BICARB 325 MG TAB PO SCH (09:00)
--- NOTE | 2023-02-09 09:05 | P.PN ---
Date of Service: 02/09/23 Chief Complaint: Pneumonia, UTI, Severe Sepsis Subjective: Patient seen and examined at bedside. No new or worsening complaints at this time. No acute events reported overnight. Physical Examination Temp Pulse Resp BP Pulse Ox 97.1 F 85 16 168/77 H 95 02/09/23 04:00 02/09/23 04:00 02/09/23 04:00 02/09/23 04:00 02/09/23 04:00 General: In no apparent distress A&Ox3. HEENT: Atraumatic, Normocephalic Neck: Tracheostomy site clean dry and intact Respiratory: Diminished breath sounds, On 6 LPM via trach collar Cardiovascular: No edema, Normal pulses Gastrointestinal: Normal bowel sounds, PEG tube Musculoskeletal: Left sided weakness Left BKA; amputation of all toes right foot Integumentary: Pressure ulcer sacrum stage 2 Urinary: Ortega catheter draining yellow urine Laboratory Data - Reviewed Microbiology Data - Reviewed Imagings Data: - CT Abdomen 01/23: "FINDINGS: The evaluation of solid organs, vessels and bowel is limited secondary to the lack of contrast administration. Opacities within the lower lobes have the appearance of pneumonia. Gallbladder is distended. Stone within the gallbladder neck. Percutaneous tube within the stomach. The liver, spleen, pancreas, adrenals and kidneys appear grossly normal. Large amount stool within the colon . There is no evidence of diverticulitis" Medication List: Reviewed Assessment and Plan Problem List Chronic respiratory failure s/p tracheostomy BPH Chronic ortega catheter GERD Hypertension Hx CVA Hypothyroidism CKD stage IV Diabetes Mellitus Type I Recurrent Aspiration pneumonia Sepsis, resolved Anemia Severe PCM Pneumonia - CT Abdomen/Pelvis 01/23: "Moderate alveolar opacities within the lower lobes probably pneumonia. Cholelithiasis with gallbladder distention. Large amount stool within the colon." - XR chest 01/23: "Bibasilar lung opacities probably pneumonia" - Influenza A&B Negative - Previously on Merrem (01/28-02/06) and Vancomycin (01/26-02/04) - Sputum culture 02/03: Proteus mirabilis (lea-resistant) and Pseudomonas aeruginosa MDR - Pulmonology following Fungal UTI - Urinalysis 01/23: LE 500, RBC >50, WBC >50, Moderate WBC clumps, Bacteria 20- 50, Moderate yeast - Urine culture 01/23: 4+ yeast NOT gavino albicans - Patient had been treated with Fluconazole x 14 days within the last 30 days - Completed 5 days of Micafungin (01/27-01/31) Blood cultures 01/23: No growth to date WBC 11 Afebrile Recommendations Antibiotics discontinued 02/07 and patient has been monitored for 48 hours for worsening signs of infection and any new complaints. He remains afebrile and clinically stable at this time. - WBC and fever trends. - Aspiration precautions - Strict blood glucose control Sputum culture with lea-resistant Proteus mirabilis and MDR Pseudomonas. Possibly colonization. Pulmonology also following. ID will follow patient as needed. Case discussed with Flavio Merrill
[2023-02-09 09:25] VITALS: O2SAT 94
[2023-02-09] MEDS: AMLODIPINE 2.5 MG TAB PO SCH (09:31)
[2023-02-09] MEDS: LEVOTHYROXINE SOD 0.025 MG TAB FT SCH (09:32)
[2023-02-09] MEDS: VITAL AF 1,000 ML BOT FT SCH ×2 (09:32→13:00)
[2023-02-09] MEDS: INSULIN GLARGINE 100 UNIT/ML SQ SCH (09:38)
[2023-02-09 11:35] VITALS: TEMP 97.9
[2023-02-09] MEDS ORDERED: DIPHENHYDRAMINE 50 MG/ML VIAL IV ONE (13:54)
[2023-02-09] MEDS ORDERED: dexAMETHasone 4 MG/ML VIAL IV ONE (13:55)
[2023-02-09 16:00] VITALS: BP 132/63
--- NOTE | 2023-02-09 21:42 | P.PN ---
Date of Service: 02/09/23 Vital Signs Temp Pulse Resp BP Pulse Ox 97.9 F 80 16 132/63 96 02/09/23 15:58 02/09/23 15:58 02/09/23 15:58 02/09/23 15:58 02/09/23 15:58 Microbiology Results 01/23/23 19:25 Blood - Blood Aerobic Blood Culture - Final No growth in 5 days. 01/23/23 19:25 Blood - Blood Anaerobic Blood Culture - Final No growth in 5 days. 01/23/23 19:25 Blood - Blood Aerobic Blood Culture - Final No growth in 5 days. 01/23/23 19:25 Blood - Blood Anaerobic Blood Culture - Final No growth in 5 days. 01/23/23 20:05 Clean Catch Urine [place] Count - Final >100,000 CFU/ML. 01/23/23 20:05 Clean Catch Urine - Final 01/23/23 18:39 Nasopharnyx Influenza Type A Antigen Screen - Final 01/23/23 18:39 Nasopharnyx Influenza Type B Antigen Screen - Final Assessment/ Plan: Nephrology No dyspnea No chest pain No acute events overnight Vitals, medications, blood work and imaging reviewed in the chart. General: In no apparent distress, Cooperative HEENT: Atraumatic Neck: Supple. Trach. Respiratory: Normal air movement Cardiovascular: No edema, Regular rate/rhythm Gastrointestinal: Soft and benign, Non-distended PEG Musculoskeletal: No clubbing, No contractures Left BKA Integumentary: No rashes, No cyanosis Simmons Blood work reviewed in the chart. Imagings Data: EXAM DESCRIPTION: JOEQuique Single View01/23/2023 7:34 pm CLINICAL HISTORY: Chest pain COMPARISON: January 13, 2023 FINDINGS: No significant change bibasilar lung opacities. Chronic elevation right hemidiaphragm. Heart is normal size. Tracheostomy tube in place IMPRESSION: Bibasilar lung opacities probably pneumonia EXAM DESCRIPTION: CT - Abdomen Pelvis Wo Contrast - 01/23/2023 7:47 pm CLINICAL HISTORY: Abdominal pain COMPARISON: November 2022 TECHNIQUE: Computed axial tomography of the abdomen and pelvis was obtained. IV and oral contrast were not requested. All CT scans are performed using dose optimization technique as appropriate and may include automated exposure control or mA/KV adjustment according to patient size. FINDINGS: The evaluation of solid organs, vessels and bowel is limited secondary to the lack of contrast administration. Opacities within the lower lobes have the appearance of pneumonia Gallbladder is distended. Stone within the gallbladder neck. Percutaneous tube within the stomach. The liver, spleen, pancreas, adrenals and kidneys appear grossly normal. Large amount stool within the colon . There is no evidence of diverticulitis. IMPRESSION: Moderate alveolar opacities within the lower lobes probably pneumonia Cholelithiasis with gallbladder distention Large amount stool within the colon Conclusions/Impression: Stage I KATLYN, resolved CKD IIIb with proteinuria -No NSAIDs Hypernatremia, resolved -Maintain hydration Hypokalemia, resolved Metabolic Acidosis -Continue bicarb through PEG HTN with CKD -Continue low dose Amlodipine DM II with CKD -RISS -Continue insulin glargine Hypoalbuminemia Severe protein malnutrition with decreased functional ability PEG -Continue Nepro -PT as tolerated Anemia in chronic illness -Monitor H&H -PRBC prn
== END 2023-02-09 16:51 | DRG 698 ==
LOC: ER 18:12 → 2ND 21:41
PROVIDERS: ADMIT Internal Medicine; ATTEND Hospitalist
PROC: 30233N1 Transfusion of Nonautologous Red Blood Cells into Peripheral Vein, Percutaneous Approach (ICD-10-PCS; 2023-01-25)
PROC: 02HV33Z Insertion of Infusion Device into Superior Vena Cava, Percutaneous Approach (ICD-10-PCS; principal; 2023-02-05)
DX: T83.511A Infection and inflammatory reaction due to indwelling urethral catheter, initial encounter (principal); A41.52 Sepsis due to Pseudomonas; J15.1 Pneumonia due to Pseudomonas; J15.6 Pneumonia due to other Gram-negative bacteria; R65.20 Severe sepsis without septic shock; J69.0 Pneumonitis due to inhalation of food and vomit; E43 Unspecified severe protein-calorie malnutrition; J96.11 Chronic respiratory failure with hypoxia; N18.4 Chronic kidney disease, stage 4 (severe); N17.9 Acute kidney failure, unspecified; I50.32 Chronic diastolic (congestive) heart failure; I13.0 Hypertensive heart and chronic kidney disease with heart failure and stage 1 through stage 4 chronic kidney disease, or unspecified chronic kidney disease; E87.0 Hyperosmolality and hypernatremia; E87.20 Acidosis, unspecified; K21.9 Gastro-esophageal reflux disease without esophagitis; Z93.0 Tracheostomy status; E03.9 Hypothyroidism, unspecified; J44.9 Chronic obstructive pulmonary disease, unspecified; E78.5 Hyperlipidemia, unspecified; E10.22 Type 1 diabetes mellitus with diabetic chronic kidney disease; E10.51 Type 1 diabetes mellitus with diabetic peripheral angiopathy without gangrene; K59.00 Constipation, unspecified; D63.1 Anemia in chronic kidney disease; E10.65 Type 1 diabetes mellitus with hyperglycemia; F32.A Depression, unspecified; N40.0 Benign prostatic hyperplasia without lower urinary tract symptoms; E87.6 Hypokalemia; N39.0 Urinary tract infection, site not specified; E88.09 Other disorders of plasma-protein metabolism, not elsewhere classified; I25.10 Atherosclerotic heart disease of native coronary artery without angina pectoris; Z79.4 Long term (current) use of insulin; Z88.1 Allergy status to other antibiotic agents; Z68.21 Body mass index [BMI] 21.0-21.9, adult; Z79.02 Long term (current) use of antithrombotics/antiplatelets; Z86.73 Personal history of transient ischemic attack (TIA), and cerebral infarction without residual deficits; Z90.49 Acquired absence of other specified parts of digestive tract; Z79.82 Long term (current) use of aspirin; Z89.421 Acquired absence of other right toe(s); Z89.512 Acquired absence of left leg below knee; Z79.890 Hormone replacement therapy; Z79.899 Other long term (current) drug therapy
CPT/HCPCS: 36415; 71045; 74176; 80048; 80053; 80061; 80202; 81001; 82947; 83605; 83690; 83735; 84100; 84132; 84145; 84550; 85014; 85018; 85025; 85610; 85730; 86850; 86900; 86901; 86920; 87040; 87070; 87077; 87086; 87088; 87186; 87205; 87324; 87804; 87811; 93005; 94760; 96361; 96365; 96366; 99285; C9113; J1100; J1200; J1644; J1815; J2185; J2248; J2405; J2543; J3480; J7030; J7040; J7050; P9016

== ENCOUNTER 2023-02-23 23:50 | Observation (INO) | payer BC ==
[2023-02-24 01:51] LABS: Absolute Lymphocytes (CBC) 2.5 K/uL (0.7-4.9); Hematocrit 34.8 % (39.6-49.0); Lymphocytes % 18.5 % (15.3-44.8); MCV 83.4 fL (80-100); MPV 8.5 fL (7.6-11.3); RBC Red Blood Cell Count 4.17 M/uL (4.33-5.43)
[2023-02-24] MEDS ORDERED: Meropenem 1000 MG/VIAL IV ONE (01:56)
[2023-02-24] MEDS ORDERED: NA CHLORIDE 0.9% 250 ML ONE (01:56)
[2023-02-24] MEDS ORDERED: VANCOMYCIN 1 GM/VIAL ONE (01:56)
[2023-02-24] MEDS ORDERED: NA CHLORIDE 0.9% 100 ML ONE (01:56)
[2023-02-24 01:57] LABS: Protime INR 0.94
[2023-02-24 02:12] LABS: Albumin 1.9 g/dL (3.4-5.0); Bilirubin Total 0.3 mg/dL (0.2-1.0); Potassium 4.2 mEq/L (3.5-5.1); Protein, Total 8.1 g/dL (6.4-8.2)
[2023-02-24] MEDS ORDERED: NA CHLORIDE 0.9% 1,000 ML ONE (02:50)
--- NOTE | 2023-02-24 03:09 | EDPHYS ---
Physician Documentation [facility] Name: Douglas Carrillo Age: 57 yrs Sex: Male : 1965 Arrival Date: 02/23/2023 Time: 23:50 Bed 8 Private MD: ED Physician Warren Domingo HPI: 02/24 01:19 This 57 yrs old Male presents to ER via EMS with complaints of Shortness of breath. rt 01:19 Patient with prior tracheostomy presents to the ED with difficulty breathing and cough rt for about 1 week with increased sputum production. He has been on an unknown antibiotic during that time with worsening of his symptoms. He denies other acute complaints at this time, symptoms are moderate severity, no other aggravating alleviating factors.. Historical: - Allergies: 02/23 23:52 Neostigmine Methylsulfate; jb4 23:52 Sulfa (Sulfonamide Antibiotics); jb4 - PMHx: 23:52 CVA; Diabetes - IDDM; GERD; Hypertension; jb4 - Immunization history:: Adult Immunizations up to date. - Family history:: not pertinent. - Social history:: Smoking status: unknown. ROS: 02/24 01:19 Constitutional: Negative for fever, chills, and weight loss, Cardiovascular: Negative rt for chest pain, palpitations, and edema, Abdomen/GI: Negative for abdominal pain, nausea, vomiting, diarrhea, and constipation, : Negative for injury, bleeding, discharge, and swelling. Respiratory: Positive for cough, shortness of breath. Exam: 01:19 Constitutional: This is a well developed, well nourished patient who is awake, alert, rt and in no acute distress. Abdomen/GI: Soft, non-tender, with normal bowel sounds. No distension or tympany. No guarding or rebound. No evidence of tenderness throughout. Skin: Warm, dry with normal turgor. Normal color with no rashes, no lesions, and no evidence of cellulitis. MS/ Extremity: Pulses equal, no cyanosis. Neurovascular intact. Full, normal range of motion. 01:19 Neck: Tracheostomy in place. 01:19 Respiratory: Crackles to the right lower lobe, no respiratory distress. 01:19 ECG was reviewed by the Attending Physician. rt Vital Signs: 00:28 BP 119 / 70; Pulse 91; Resp 18; Temp 98.4(O); Pulse Ox 95% ; Pain 0/10; jb4 02:00 BP 145 / 79; Pulse 105; Resp 16; Pulse Ox 98% on Simple Mask; jb4 03:06 BP 132 / 75; Pulse 91; Resp 18; Pulse Ox 98% on R/A; kd3 04:46 BP 135 / 72; Pulse 83; Resp 16; Pulse Ox 98% on Simple Mask; jb4 00:28 Pain Scale: Adult jb4 MDM: 02/23 23:54 Patient medically screened. rt 02/24 03:56 Differential diagnosis: Pneumonia, tracheitis, sepsis. Data reviewed: vital signs, rt nurses notes, lab test result(s), radiologic studies. Consideration of Admission/Observation Patient was admitted/placed on observation. Management of patient was discussed with the following: Hospitalist: Agrees to admit. I considered the following discharge prescriptions or medication management in the emergency department Medications were administered in the Emergency Department. See MAR. Independent interpretation of the following test(s) in the Emergency Department X-Ray: My interpretation is No consolidation seen on my interpretation of the x-ray images. Care significantly affected by the following chronic conditions: Prior CVA, trach dependent. Counseling: I had a detailed discussion with the patient and/or guardian regarding: the historical points, exam findings, and any diagnostic results supporting the discharge/admit diagnosis, lab results, radiology results, the need for further work-up and treatment in the hospital. Response to treatment: the patient's symptoms have markedly improved after treatment. 02/24 00:00 Order name: Blood Culture Adult (2) rt 02/24 00:00 Order name: CBC with Diff; Complete Time: 02:13 rt 02/24 00:00 Order name: CMP; Complete Time: 02:46 rt 02/24 00:00 Order name: Lactate w/ 2H reflex if indic.; Complete Time: 02:13 rt 02/24 00:00 Order name: Protime (+inr); Complete Time: 02:13 rt 02/24 00:00 Order name: Ptt, Activated; Complete Time: 02:13 rt 02/24 03:06 Order name: Sputum Culture rt 02/24 04:57 Order name: Urinalysis w/ reflexes EDMS 02/24 04:57 Order name: Basic Metabolic Panel EDMS 02/24 04:57 Order name: Basic Metabolic Panel EDMS 02/24 04:57 Order name: Basic Metabolic Panel EDMS 02/24 04:57 Order name: Basic Metabolic Panel EDMS 02/24 04:57 Order name: CBC with Automated Diff EDMS 02/24 04:57 Order name: CBC with Automated Diff EDMS 02/24 04:57 Order name: CBC with Automated Diff EDMS 02/24 04:57 Order name: CBC with Automated Diff EDMS 02/24 04:57 Order name: Magnesium EDMS 02/24 04:57 Order name: Magnesium EDMS 02/24 04:57 Order name: Magnesium EDMS 02/24 04:57 Order name: Magnesium EDMS 02/24 04:57 Order name: PTT, Activated Partial Thromb EDMS 02/24 04:57 Order name: PTT, Activated Partial Thromb EDMS 02/24 04:57 Order name: PTT, Activated Partial Thromb EDMS 02/24 04:57 Order name: PTT, Activated Partial Thromb EDMS 02/24 05:53 Order name: Glucose, Ancillary Testing EDMS 02/24 07:46 Order name: Glucose, Ancillary Testing EDMS 02/24 11:51 Order name: Glucose, Ancillary Testing EDMS 02/24 01:15 Order name: Chest Single View XRAY rt 02/24 00:00 Order name: EKG; Complete Time: 00:00 rt 02/24 04:57 Order name: CONS Physician Consult EDMS 02/24 00:00 Order name: Accucheck; Complete Time: 01:49 rt 02/24 00:00 Order name: Cardiac monitoring; Complete Time: : rt 02/24 00:00 Order name: EKG - Nurse/Tech; Complete Time: : rt 02/24 00:00 Order name: IV Saline Lock - Large Bore; Complete Time: : rt 02/24 00:00 Order name: Labs collected and sent; Complete Time: : rt 02/24 00:00 Order name: O2 Per Protocol; Complete Time: : rt 02/24 00:00 Order name: O2 Sat Monitoring; Complete Time: rt 02/24 00:00 Order name: Vital Signs; Complete Time: 01:29 rt EC:19 Rate is 90 beats/min. Rhythm is regular, Normal Sinus Rhythm with No ectopy. QRS [place] rt is Normal. ID interval is normal. QRS interval is normal. QT interval is normal. No Q waves. T waves are Normal. No ST changes noted. Administered Medications: 02:19 Drug: Meropenem IV 1 grams Route: IV; Rate: calculated rate; Site: right antecubital; jb4 03:05 Drug: vancoMYCIN IVPB 1 grams Route: IVPB; Infused Over: 2 hrs; Site: right antecubital;kd3 03:05 Drug: NS 0.9% IV 1000 ml Route: IV; Rate: 1 bolus; Site: right antecubital; kd3 Disposition Summary: 02/24/23 03:10 Hospitalization Ordered Hospitalization Status: Inpatient Admission rt Provider: Sangeeta Berg rt Condition: Stable(02/24/23 03:10) rt Problem: an acute exacerbation(02/24/23 03:10) rt Symptoms: have improved(02/24/23 03:10) rt Bed/Room Type: Standard rt Location: [facility] ER HOLD(02/24/23 13:58) eb Room Assignment: (02/24/23 13:58) eb Diagnosis - Cough rt - Acute kidney injury rt Forms: - Medication Reconciliation Form rt - SBAR form rt Signatures: Dispatcher [employer] EDTamia Brush RN RN mw Bryson, James, RN RN [email or web address] Rhea Ramírez Kyli RN RN kd3 Warren Domingo MD MD rt Corrections: (The following items were deleted from the chart) 03:09 03:09 Home rt rt 03:09 03:09 an acute exacerbation rt rt 03:09 03:09 have improved rt rt 03:09 03:09 Stable rt rt 03:09 03:09 Cough rt rt 03:09 03:09 Acute kidney injury rt rt 03:32 03:10 Telemetry/MedSurg (Inpatient) rt mw 03:32 03:10 rt mw 12:13 03:32 [facility] ER HOLD mw eb 12:13 03:32 ERHOLD- mw eb 13:58 12:13 Telemetry/MedSurg (Inpatient) eb eb 13:58 12:13 210 eb eb
--- NOTE | 2023-02-24 03:09 | ER ---
Nurse's Notes [facility] Name: Douglas Carrillo Age: 57 yrs Sex: Male : 1965 Arrival Date: 02/23/2023 Time: 23:50 Bed 8 Private MD: Diagnosis: Cough;Acute kidney injury Presentation: 02/23 23:51 Chief complaint: EMS states: senior care staff called for hypotension and jb4 hyperglycemia. B/p was 127/72 upon arrival and BGL was 457. It was noted that pt feels congested and has increased sputum in the trach. senior care staff suctioned pt prior to leaving. Pt denies difficulty breathing at this time. Coronavirus screen: At this time, the client does not indicate any symptoms associated with coronavirus-19. Ebola Screen: No symptoms or risks identified at this time. Risk Assessment: Do you want to hurt yourself or someone else? Patient reports no desire to harm self or others. Onset of symptoms was February 23, 2023. Transition of care: patient was not received from another setting of care. 23:51 Method Of Arrival: EMS: [facility], EMS jb4 23:51 Acuity: EMMANUEL 3 jb4 02/24 06:30 Initial Sepsis Screen: Does the patient meet any 2 criteria? No. Patient's initial kd3 sepsis screen is negative. Does the patient have a suspected source of infection? Yes: Productive cough/pneumonia. Historical: - Allergies: 02/23 23:52 Neostigmine Methylsulfate; jb4 23:52 Sulfa (Sulfonamide Antibiotics); jb4 - PMHx: 23:52 CVA; Diabetes - IDDM; GERD; Hypertension; jb4 - Immunization history:: Adult Immunizations up to date. - Family history:: not pertinent. - Social history:: Smoking status: unknown. Screenin/28 00:00 [facility] ED Fall Risk Assessment (Adult) History of falling in the last 3 months, jb4 including since admission No falls in past 3 months (0 pts) Confusion or Disorientation No (0 pts) Score/Fall Risk Level 0 - 2 = Low Risk Oriented to surroundings, Maintained a safe environment. Abuse screen: Denies threats or abuse. Nutritional screening: No deficits noted. Tuberculosis screening: No symptoms or risk factors identified. Assessment: 00:00 General: Appears in no apparent distress. comfortable, Behavior is calm, cooperative, jb4 appropriate for age. Pain: Denies pain. Neuro: Level of Consciousness is awake, alert, obeys commands, Oriented to person, place, time, situation. Cardiovascular: Patient's skin is warm and dry. Respiratory: Airway is patent Respiratory effort is even, unlabored, Respiratory pattern is regular, symmetrical. GI: No signs and/or symptoms were reported involving the gastrointestinal system. : No signs and/or symptoms were reported regarding the genitourinary system. EENT: No signs and/or symptoms were reported regarding the EENT system. Derm: Skin is intact, Skin is pink, warm \T\ dry. Musculoskeletal: Circulation, motion, and sensation intact. Range of motion: intact in all extremities. 01:00 Reassessment: Patient appears in no apparent distress at this time. Patient and/or jb4 family updated on plan of care and expected duration. Pain level reassessed. Patient is alert, oriented x 3, equal unlabored respirations, skin warm/dry/pink. 02:00 Reassessment: Patient appears in no apparent distress at this time. Patient and/or jb4 family updated on plan of care and expected duration. Pain level reassessed. Patient is alert, oriented x 3, equal unlabored respirations, skin warm/dry/pink. 03:06 General: Appears ill, Behavior is calm, cooperative. Pain: Denies pain. kd3 04:00 Reassessment: Patient appears in no apparent distress at this time. Patient and/or jb4 family updated on plan of care and expected duration. Pain level reassessed. Patient is alert, oriented x 3, equal unlabored respirations, skin warm/dry/pink. Vital Signs: 00:28 BP 119 / 70; Pulse 91; Resp 18; Temp 98.4(O); Pulse Ox 95% ; Pain 0/10; jb4 02:00 BP 145 / 79; Pulse 105; Resp 16; Pulse Ox 98% on Simple Mask; jb4 03:06 BP 132 / 75; Pulse 91; Resp 18; Pulse Ox 98% on R/A; kd3 04:46 BP 135 / 72; Pulse 83; Resp 16; Pulse Ox 98% on Simple Mask; jb4 00:28 Pain Scale: Adult jb4 ED Course: 02/23 23:51 Patient arrived in ED. jb4 23:52 Warren Domingo MD is Attending Physician. rt 23:52 Triage completed. jb4 23:52 Arm band placed on right wrist. jb4 02/24 00:00 Patient has correct armband on for positive identification. Bed in low position. Call jb4 light in reach. Side rails up X 1. 00:23 Missed attempt(s): 20 gauge in right antecubital area. bc6 00:28 Mikey Contreras RN is Primary Nurse. jb4 01:20 Initial lab(s) drawn, by me, sent to lab. Inserted saline lock: 20 gauge in right jb4 antecubital area, using aseptic technique. Blood collected. 01:34 Chest Single View XRAY In Process Unspecified. EDMS 02:24 Notified ED physician of a critical lab result(s). glucose 434. kl 03:09 Sangeeta Berg MD is Referral Physician. rt 03:09 Sangeeta Berg MD is Hospitalizing Provider. rt 06:30 Provided Education on: . kd3 06:30 No provider procedures requiring assistance completed. Patient admitted, IV remains in kd3 place. Administered Medications: 02:19 Drug: Meropenem IV 1 grams Route: IV; Rate: calculated rate; Site: right antecubital; jb4 03:05 Drug: vancoMYCIN IVPB 1 grams Route: IVPB; Infused Over: 2 hrs; Site: right antecubital;kd3 03:05 Drug: NS 0.9% IV 1000 ml Route: IV; Rate: 1 bolus; Site: right antecubital; kd3 Medication: 06:30 VIS not applicable for this client. kd3 Outcome: 03:09 Discharge ordered by . rt 03:10 Decision to Hospitalize by Provider. rt 06:30 Admitted to ER Hold. Please see [facility] for further documentation. kd3 06:30 Condition: stable 06:30 Discharge instructions given to patient, Instructed on the need for admit. 19:05 Patient left the ED. bp Signatures: Dispatcher [employer] EDMS Karen Byrd RN RN kl Bryson, James, RN FELIBERTO jb4 Campos Sheffield RN RN bp Doucette, Kyli, RN RN kd3 Warren Domingo MD MD rt Xi Red 6
--- NOTE | 2023-02-24 04:50 | P.HP ---
Certification for Inpatient Patient admitted to: Inpatient With expected LOS: <2 Midnights Patient will require the following post-hospital care: None Practitioner: I am a practitioner with admitting privileges, knowledge of patient current condition, hospital course, and medical plan of care. Services: Services provided to patient in accordance with Admission requirements found in Title 42 Section 412.3 of the Code of Federal Regulations Patient History Date of Service: 02/24/23 Reason for admission: Shortness of breath History of Present Illness: 57-year-old male with a past medical history CVA status post tracheostomy, PEG tube, chronic hypoxic respiratory failure, recurrent aspiration pneumonia, hypothyroidism, diabetes mellitus type 1, COPD, hyperlipidemia, chronic indwelling Simmons, chronic kidney disease stage IV presents to the emergency room Via EMS from [facility] with shortness of breath and cough. He reports increased sputum production, he reports being on an unknown antibiotic at this time. He denies fever, chest pain, abdominal pain, nausea vomiting, hemoptysis. Laboratory evaluation blood glucose 434, acute on chronic kidney injury BUN 60, creatinine 2.62, CBC with WBCs elevated at 13.40, microcytic anemia 11.3, 34.8, platelet count elevated at 478, sputum culture sent. Allergies Sulfa (Sulfonamide Antibiotics) Allergy (Verified 05/13/19 16:25) Itching/Hives/Rash Home Medications: Acetaminophen 2 tab FT Q4H PRN 10/22/22 Amlodipine [Norvasc*] 1 tab FT DAILY 10/22/22 Atorvastatin Calcium [Lipitor*] 1 tab FT BEDTIME 10/22/22 Budesonide [Pulmicort*] 2 ml IH Q12H 10/22/22 Ferrous Sulfate 7.5 ml FT Q12H 10/22/22 Lactulose [Enulose] 30 ml FT Q6H PRN 10/22/22 Levothyroxine Sodium 1 tab FT DAILY 10/22/22 Omeprazole 20 mg FT DAILY 10/22/22 Ondansetron [Zofran (Odt)*] 1 tab FT Q6H PRN 10/22/22 Tamsulosin HCl [Flomax] 1 cap FT BEDTIME 10/22/22 Nepro 240 ml FT QID bot 10/24/22 Aspirin [Aspirin EC 81 MG] 81 mg FT DAILY 12/16/22 Escitalopram Oxalate [Lexapro] 1 tab FT DAILY 12/16/22 Ipratropium/Albuterol Sulfate [Iprat-Albut 0.5-3(2.5) mg/3 ml] 3 ml IH Q6H 12/16/22 Lactobacillus Rhamnosus GG [Culturelle] 1 cap FT BID 12/16/22 Insulin Glargine,Hum.rec.anlog [Semglee] 15 unit SQ Q12HR ml 12/27/22 Insulin -Regular Human [Novolin -R*] See Protocol SQ Q6HR@0000,0600,1200,1800 ml 01/13/23 Insulin Lispro 0 unit SQ Q6H 01/24/23 Potassium Chloride 10 meq FT DAILY 01/24/23 Ticagrelor [Brilinta*] 90 mg FT BID 01/25/23 carvediloL [Coreg*] 6.25 mg FT BID 01/25/23 Albuterol Neb [Proventil 0.083% Neb Soln] 2.5 mg NEB [id number] PRN #60 amp 02/09/23 Ipratropium Neb [Atrovent*] 0.5 mg NEB [id number] PRN #60 amp 02/09/23 Na Bicarb Tab [Sodium Bicarb 325 MG Tab*] 650 mg PO DAILY #60 tab 02/09/23 Pantoprazole Granules [Protonix Granules*] 40 mg FT DAILYAC #30 packet 02/09/23 Sucralfate [Carafate*] 10 ml FT QID #1000 02/09/23 - Past Medical/Surgical History Diabetic: Yes -: DM I -: CKD IV (Dr. Edmonds) -: CAD -: Hypertension -: Hyperlipidemia -: PVD -: History TIA/CVA -: Congestive Heart Failure -: Appendectomy -: Left below-knee amputation -: Multiple surgeries to the right lower extremity -: Right foot all toes amputated- february 2019 Psychosocial/ Personal History: Patient lives at [facility]. - Family History Mother -: Cancer - Social History Alcohol use: Yes CD- Drugs: No Caffeine use: Yes Review of Systems 10-point ROS is otherwise unremarkable Physical Examination - Physical Exam General: Alert, In no apparent distress, Oriented x3 HEENT: Atraumatic, Normocephalic, PERRLA Neck: Supple, 2+ carotid pulse no bruit, Other (Tracheostomy) Respiratory: Crackles/rales (RLL), Other (Tracheostomy in place moderate secretions) Cardiovascular: No edema, Regular rate/rhythm, Normal S1 S2 Gastrointestinal: Normal bowel sounds, Soft and benign Musculoskeletal: No clubbing, No swelling, Other (B) LE partial amputess,R/L ) Integumentary: No rashes, No breakdown, Other (Peg placement, ) Neurological: Normal strength at 5/5 x4 extr, Cranial nerves 3-12 intact - Studies Laboratory Data (last 24 hrs) 02/24/23 01:20: PT 10.3, INR 0.94, APTT 41.3 H 02/24/23 01:20: Sodium 137, Potassium 4.2, BUN 60 H, Creatinine 2.62 H, Glucose 434 H*, Total Bilirubin 0.3, AST 23, ALT 34, Alkaline Phosphatase 175 H 02/24/23 01:20: WBC 13.40 H, Hgb 11.3 L, Hct 34.8 L, Plt Count 478 H Assessment and Plan - Plan Assessment plan Acute on chronic hypoxic respiratory failure Sepsis secondary suspected pneumonia, He met sepsis criteria based on tachycardia, tachypnea, and leukocytosis. Anemia History of congestive heart failure CAD COPD Diabetes type 1 Essential hypertension Chronic kidney disease stage IV Depressive disorder BPH Peg tube B)partial Lower ext Amputees DVT prplx Acute on chronic hypoxic respiratory failure COPD Pulmonary consult, O2 keep sats greater than 92% Pulm consult, resume appropriate home medications Sepsis secondary suspected pneumonia, He met sepsis criteria based on tachycardia, tachypnea, and leukocytosis. Infectious disease consult, sputum culture, IV antibiotics, DuoNebs, CBC with WBCs elevated at 13.40, sputum culture sent. Chronic kidney disease stage IV Nephrology consult, trend kidney function, avoid nephrotoxic medications acute on chronic kidney injury BUN 60, creatinine 2.62, Anemia Trend H&H, microcytic anemia 11.3, 34.8, platelet count elevated at 478, Diabetes type 1 glucose 434, Nephrology consult, trend kidney function Avoid nephrotoxic medications History of congestive heart failure CAD Cardiac diet, daily weight, Depressive disorder BPH Essential hypertension Resume appop home medications Diet renal Full code DVT heparin Discharge Plan: Senior Care Plan to discharge in: 48 Hours - Advance Directives Does patient have a Living Will: No Does patient have a Durable POA for Healthcare: No - Code Status/Comfort Care Code Status: Full Code Physician Review: Patient Assessed, Agree with Above Assessment and Plan Critical Care: No Time Spent Managing Pts Care (In Minutes): 50
[2023-02-24] MEDS ORDERED: ONDANSETRON 4 MG/2 ML VIAL IV PRN (04:55)
[2023-02-24] MEDS ORDERED: ALBUTEROL 2.5 MG/3 ML NEB SOL NEB PRN ×2 (04:55→12:00)
[2023-02-24] MEDS ORDERED: D50W 25 GM/50 ML SYRINGE IV PRN (05:48)
[2023-02-24] MEDS ORDERED: GLUCAGON 1 MG/VIAL IM PRN (05:48)
[2023-02-24 05:54] VITALS: BMI 27.8
[2023-02-24] MEDS ORDERED: D10W 125 ML IV PRN (05:54)
[2023-02-24 05:56] VITALS: TEMP 97.5; O2SAT 100
[2023-02-24] MEDS: INSULIN -REGULAR HUMAN 50 UNIT/0.5 ML ML SQ SCH ×2 (07:30→11:30)
[2023-02-24] MEDS ORDERED: INSULIN -REGULAR HUMAN 50 UNIT/0.5 ML ML ONE ×2 (07:53→11:55)
--- NOTE | 2023-02-24 10:02 | P.CNS ---
Date of Consult: 02/24/23 Reason for Consult: Pneumonia MDR Chief Complaint: SOB, Cough, Increased sputum production History of Present Illness: Mr. Carrillo is a 57 year-old male with a history of CVA, chronic respiratory failure, trach dependent, PEG tube, chronic indwelling ortega, CKD, DMI and hypothyroidism who presented to the ED from [facility] with complaints of shortness of breath, cough and increased sputum production. Patient has been hospitalized multiple times this year for recurrent pneumonia and urinary infections and has a history of multi-drug resistant infections. Allergies Sulfa (Sulfonamide Antibiotics) Allergy (Verified 05/13/19 16:25) Itching/Hives/Rash Home medications list reviewed: Yes Home Medications: Acetaminophen 2 tab FT Q4H PRN 10/22/22 Amlodipine [Norvasc*] 1 tab FT DAILY 10/22/22 Atorvastatin Calcium [Lipitor*] 1 tab FT BEDTIME 10/22/22 Budesonide [Pulmicort*] 2 ml IH Q12H 10/22/22 Ferrous Sulfate 7.5 ml FT Q12H 10/22/22 Lactulose [Enulose] 30 ml FT Q6H PRN 10/22/22 Levothyroxine Sodium 1 tab FT DAILY 10/22/22 Omeprazole 20 mg FT DAILY 10/22/22 Ondansetron [Zofran (Odt)*] 1 tab FT Q6H PRN 10/22/22 Tamsulosin HCl [Flomax] 1 cap FT BEDTIME 10/22/22 Nepro 240 ml FT QID bot 10/24/22 Aspirin [Aspirin EC 81 MG] 81 mg FT DAILY 12/16/22 Escitalopram Oxalate [Lexapro] 1 tab FT DAILY 12/16/22 Ipratropium/Albuterol Sulfate [Iprat-Albut 0.5-3(2.5) mg/3 ml] 3 ml IH Q6H 12/16/22 Lactobacillus Rhamnosus GG [Culturelle] 1 cap FT BID 12/16/22 Insulin Glargine,Hum.rec.anlog [Semglee] 15 unit SQ Q12HR ml 12/27/22 Insulin -Regular Human [Novolin -R*] See Protocol SQ Q6HR@0000,0600,1200,1800 ml 01/13/23 Potassium Chloride 10 meq FT DAILY 01/24/23 Ticagrelor [Brilinta*] 90 mg FT BID 01/25/23 carvediloL [Coreg*] 6.25 mg FT BID 01/25/23 Albuterol Neb [Proventil 0.083% Neb Soln] 2.5 mg NEB [id number] PRN #60 amp 02/09/23 Ipratropium Neb [Atrovent*] 0.5 mg NEB [id number] PRN #60 amp 02/09/23 Na Bicarb Tab [Sodium Bicarb 325 MG Tab*] 650 mg PO DAILY #60 tab 02/09/23 Pantoprazole Granules [Protonix Granules*] 40 mg FT DAILYAC #30 packet 02/09/23 Sucralfate [Carafate*] 10 ml FT QID #1000 02/09/23 - Past Medical/Surgical History Diabetic: Yes -: DM I -: CKD IV (Dr. Edmonds) -: CAD -: Hypertension -: Hyperlipidemia -: PVD -: History TIA/CVA -: Congestive Heart Failure -: Appendectomy -: Left below-knee amputation -: Multiple surgeries to the right lower extremity -: Right foot all toes amputated- february 2019 Psychosocial/ Personal History: Patient lives at [facility]. - Family History Mother Medical History: Cancer - Social History Smoking Status: Unknown if ever smoked Alcohol use: Yes CD- Drugs: No Caffeine use: Yes Review of Systems 10-point ROS is otherwise unremarkable General: Weakness Respiratory: Cough, Sputum Physical Examination Temp Pulse Resp BP Pulse Ox 97.5 F 81 19 120/78 98 02/24/23 05:55 02/24/23 05:55 02/24/23 05:55 02/24/23 05:55 02/24/23 05:55 General: Alert, In no apparent distress, Oriented x2 HEENT: Atraumatic, Normocephalic Neck: Other (trach) Respiratory: Diminished, Crackles/rales (RLL), Other (trach collar 6LPM) Cardiovascular: No edema, Regular rate/rhythm Gastrointestinal: Normal bowel sounds, Soft and benign, Other (PEG) Musculoskeletal: No clubbing, Other (left BKA) Integumentary: Pressure ulcer (sacrum stage II) Urinary: Ortega catheter (chronic) Laboratory Data (last 24 hrs) 02/24/23 01:20: PT 10.3, INR 0.94, APTT 41.3 H 02/24/23 01:20: Sodium 137, Potassium 4.2, BUN 60 H, Creatinine 2.62 H, Glucose 434 H*, Total Bilirubin 0.3, AST 23, ALT 34, Alkaline Phosphatase 175 H 02/24/23 01:20: WBC 13.40 H, Hgb 11.3 L, Hct 34.8 L, Plt Count 478 H Imagings Data: - Reviewed Conclusions/Impression: Problem List DM I CKD IV Hx CVA Chronic Respiratory Failure with hypoxia s/p trach Hypertension Hyperglycemia Hypothyroidsm Hx MDR infections Hx recurrent aspiration pneumonia Severe PCM SOB, Cough, Increased Sputum Production - XR Chest 02/24: "No acute findings in the chest" - Nonpurulent tracheal secretions - sputum culture: Pending - Continue breathing treatments and trach care Blood culture 02/24: Pending Afebrile Leukocytosis (WBC 13.4) Lactic acid on admission within normal limits Recommendations Patient was found to be hyperglycemic with blood glucose 434. Management per hospitalist/primary. Patient may benefit from endocrine consult as outpatient. Continue nebulizer treatments Follow up with sputum and blood cultures. Patient has a history of MDR infections and multiple recent hospital admissions. Aspiration precautions. Case discussed with Flavio Merrill
[2023-02-24 12:03] VITALS: BP 142/82
--- NOTE | 2023-02-24 12:40 | RAD REPORT ---
EXAM DESCRIPTION: RAD - Chest Single View - 02/24/2023 1:33 am CLINICAL HISTORY: The patient is 57 years old and is Male; COUGH TECHNIQUE: Frontal view of the chest. COMPARISON: No relevant prior studies available. FINDINGS: Lungs: Elevation of the right hemidiaphragm with a low right lung volume. Pleural space: Unremarkable. No pneumothorax. Heart: Unremarkable. Mediastinum: Unremarkable. Bones/joints: Unremarkable. Tubes, lines and devices: Tracheostomy tube in place. IMPRESSION: No acute findings in the chest. Electronically signed by: Ayush Rizzo MD 02/24/2023 1:48 AM CDT Due to temporary technical issues with the PACS/Fluency reporting system, reports are being signed by the in house radiologists without review as a courtesy to insure prompt reporting. The interpreting radiologist is fully responsible for the content of the report.
--- NOTE | 2023-02-24 13:23 | EKG ---
Test Date: 2023-02-24 Test Time: 01:12:26 [place] Manager: NABEEL MEASUREMENT RESULTS: Intervals: Rate: 90 IA: 134 QRSD: 82 QT: 390 QTc: 477 Band[place]: P: 1 IA: 134 QRS: -10 T: 46 INTERPRETIVE STATEMENTS: Normal sinus rhythm Normal ECG Compared to ECG 01/23/2023 18:55:41 Accelerated junctional rhythm no longer present ST (T wave) deviation no longer present Prolonged QT interval no longer present Electronically Signed On 02-24-23 13:22:29 CDT by Jimbo Elliott
--- NOTE | 2023-02-24 13:39 | P.DS ---
Admission Date: 02/24/23 Discharge Date: 02/24/23 Reason for Admission: SOB, Cough, Increased sputum production - Problems (1) Hyperglycemia Current Visit: Yes Status: Acute (2) Acute renal failure Current Visit: No Status: Acute Qualifiers: Acute renal failure type: unspecified Qualified Code(s): N17.9 - Acute kidney failure, unspecified (3) Chronic respiratory failure with hypoxia Current Visit: No Status: Chronic (4) Hypertension Current Visit: No Status: Chronic Qualifiers: Hypertension type: primary hypertension Qualified Code(s): I10 - Essential (primary) hypertension (5) Type 1 diabetes Current Visit: No Status: Chronic Qualifiers: Diabetes mellitus complication status: with hyperglycemia Qualified Code(s): E10.65 - Type 1 diabetes mellitus with hyperglycemia Brief History of Present Illness: 57-year-old male with a past medical history CVA status post tracheostomy, PEG tube, chronic hypoxic respiratory failure, recurrent aspiration pneumonia, hypothyroidism, diabetes mellitus type 1, COPD, hyperlipidemia, chronic indwelling Simmons, chronic kidney disease stage IV presented to the emergency room Via EMS from [facility] with shortness of breath and cough. He reports increased sputum production, he reports being on an unknown antibiotic at this time. He denies fever, chest pain, abdominal pain, nausea vomiting, hemoptysis. Laboratory evaluation blood glucose 434, acute on chronic kidney injury BUN 60, creatinine 2.62, CBC with WBCs elevated at 13.40, microcytic anemia 11.3, 34.8, platelet count elevated at 478. Chest x-ray showed no acute disease. Patient was hospitalized for further management. Hospital Course: Patient was treated for hyperglycemia with Lantus insulin and insulin sliding scale. His blood sugar readings improved. He did not require antibiotics given clear chest x-ray. Patient mental status is at baseline, tracheal secretions looks clear, vitals are stable. His oxygen saturation is 100% on tracheostomy collar. Patient is deemed stable for discharge. Vital Signs/Physical Exam: Temp Pulse Resp BP Pulse Ox 97.5 F 75 16 142/82 H 100 02/24/23 05:55 02/24/23 12:00 02/24/23 12:00 02/24/23 12:00 02/24/23 12:00 General: Alert, In no apparent distress HEENT: Mucous membr. moist/pink Neck: JVD not distended, Other (Tracheostomy collar) Respiratory: Clear to auscultation bilaterally, Normal air movement Cardiovascular: No edema, Regular rate/rhythm, Normal S1 S2 Gastrointestinal: Soft and benign, Non-distended, Other (PEG tube) Musculoskeletal: No swelling Integumentary: No cyanosis Laboratory Data at Discharge: WBC 13.40 thou/uL (4.3-10.9) H 02/24/23 01:20 Hgb 11.3 g/dL (13.6-17.9) L 02/24/23 01:20 Hct 34.8 % (39.6-49.0) L 02/24/23 01:20 Plt Count 478 thou/uL (152-406) H 02/24/23 01:20 PT 10.3 SECONDS (9.5-12.5) 02/24/23 01:20 INR 0.94 02/24/23 01:20 APTT 41.3 SECONDS (24.3-36.9) H 02/24/23 01:20 Sodium 137 mEq/L (136-145) 02/24/23 01:20 Potassium 4.2 mEq/L (3.5-5.1) 02/24/23 01:20 BUN 60 mg/dL (7-18) H 02/24/23 01:20 Creatinine 2.62 mg/dL (0.70-1.30) H 02/24/23 01:20 Glucose 434 mg/dL (74-106) H* 02/24/23 01:20 Total Bilirubin 0.3 mg/dL (0.2-1.0) 02/24/23 01:20 AST 23 U/L (15-37) 02/24/23 01:20 ALT 34 U/L (16-61) 02/24/23 01:20 Alkaline Phosphatase 175 U/L (45-117) H 02/24/23 01:20 Home Medications: Acetaminophen 2 tab FT Q4H PRN 10/22/22 Amlodipine [Norvasc*] 1 tab FT DAILY 10/22/22 Atorvastatin Calcium [Lipitor*] 1 tab FT BEDTIME 10/22/22 Budesonide [Pulmicort*] 2 ml IH Q12H 10/22/22 Ferrous Sulfate 7.5 ml FT Q12H 10/22/22 Lactulose [Enulose] 30 ml FT Q6H PRN 10/22/22 Levothyroxine Sodium 1 tab FT DAILY 10/22/22 Omeprazole 20 mg FT DAILY 10/22/22 Ondansetron [Zofran (Odt)*] 1 tab FT Q6H PRN 10/22/22 Tamsulosin HCl [Flomax] 1 cap FT BEDTIME 10/22/22 Nepro 240 ml FT QID bot 10/24/22 Aspirin [Aspirin EC 81 MG] 81 mg FT DAILY 12/16/22 Escitalopram Oxalate [Lexapro] 1 tab FT DAILY 12/16/22 Ipratropium/Albuterol Sulfate [Iprat-Albut 0.5-3(2.5) mg/3 ml] 3 ml IH Q6H 12/16/22 Lactobacillus Rhamnosus GG [Culturelle] 1 cap FT BID 12/16/22 Insulin Glargine,Hum.rec.anlog [Semglee] 15 unit SQ Q12HR ml 12/27/22 Insulin -Regular Human [Novolin -R*] See Protocol SQ Q6HR@0000,0600,1200,1800 ml 01/13/23 Potassium Chloride 10 meq FT DAILY 01/24/23 Ticagrelor [Brilinta*] 90 mg FT BID 01/25/23 carvediloL [Coreg*] 6.25 mg FT BID 01/25/23 Albuterol Neb [Proventil 0.083% Neb Soln] 2.5 mg NEB [id number] PRN #60 amp 02/09/23 Ipratropium Neb [Atrovent*] 0.5 mg NEB [id number] PRN #60 amp 02/09/23 Na Bicarb Tab [Sodium Bicarb 325 MG Tab*] 650 mg PO DAILY #60 tab 02/09/23 Pantoprazole Granules [Protonix Granules*] 40 mg FT DAILYAC #30 packet 02/09/23 Sucralfate [Carafate*] 10 ml FT QID #1000 02/09/23 Diet: ADA Activity: Fall precautions Time spent managing pt's care (in minutes): 28
== END 2023-02-24 19:06 ==
LOC: ER 23:50 → ERHOLD 02-24 04:50 → INTOOBSV 02-24 04:50
PROVIDERS: ADMIT Internal Medicine; ATTEND Internal Medicine
DX: A41.9 Sepsis, unspecified organism (principal); J96.11 Chronic respiratory failure with hypoxia; N17.9 Acute kidney failure, unspecified; N18.4 Chronic kidney disease, stage 4 (severe); E03.9 Hypothyroidism, unspecified; E10.65 Type 1 diabetes mellitus with hyperglycemia; E78.5 Hyperlipidemia, unspecified; D63.1 Anemia in chronic kidney disease; I25.10 Atherosclerotic heart disease of native coronary artery without angina pectoris; F32.A Depression, unspecified; N40.0 Benign prostatic hyperplasia without lower urinary tract symptoms; D72.829 Elevated white blood cell count, unspecified; Z86.73 Personal history of transient ischemic attack (TIA), and cerebral infarction without residual deficits
CPT/HCPCS: 36415; 71045; 80053; 82947; 83605; 85025; 85610; 85730; 87040; 93005; 96374; 96375; 99285; J1815; J2185; J7030; J7050

== ENCOUNTER 2023-03-13 13:24 | Emergency (ER) | payer BC, OTHER ==
--- NOTE | 2023-03-13 14:13 | EDPHYS ---
Physician Documentation [facility] Name: Douglas Carrillo Age: 57 yrs Sex: Male : 1965 Arrival Date: 03/13/2023 Time: 13:24 Bed 17 Private MD: ED Physician Jonathan Silva HPI: 03/13 14:13 This 57 yrs old Male presents to ER via EMS with complaints of Tracheostomy dislodged. ms3 14:13 57-year-old male with past medical history of CVA, diabetes, GERD, hypertension ms3 presents via [facility] for tracheostomy dislodgment. EMS states they placed a 4 oh ET tube and patient's stoma. Patient denies pain.. Historical: - Allergies: 13:59 Neostigmine Methylsulfate; nj1 13:59 Sulfa (Sulfonamide Antibiotics); nj1 - PMHx: 13:59 CVA; Diabetes - IDDM; GERD; Hypertension; nj1 - Immunization history:: Adult Immunizations unknown. - Social history:: Smoking status: unknown. ROS: 14:13 Constitutional: Negative for fever, and chills. Eyes: Negative for injury, pain, ms3 redness, and discharge, Cardiovascular: Negative for chest pain, and palpitations. Respiratory: Negative for shortness of breath, cough, wheezing, and pleuritic chest pain, Abdomen/GI: Negative for abdominal pain, nausea, vomiting, diarrhea, and constipation, Skin: Negative for injury, rash, and discoloration. 14:13 All other systems are negative. Exam: 14:13 Constitutional: This is a well developed, well nourished patient who is awake, alert, ms3 and in no acute distress. Head/Face: Normocephalic, atraumatic. Neck: Trachea midline, no cervical lymphadenopathy. Supple, full range of motion without nuchal rigidity, or vertebral point tenderness. No Meningismus. Chest/axilla: Normal chest wall appearance and motion. Nontender with no deformity. Respiratory: Lungs have equal breath sounds bilaterally, clear to auscultation and percussion. No rales, rhonchi or wheezes noted. No increased work of breathing, no retractions or nasal flaring. Abdomen/GI: Soft, non-tender, with normal bowel sounds. No distension or tympany. No guarding or rebound. No evidence of tenderness throughout. Skin: Warm, dry with normal turgor. Normal color with no rashes, no lesions, and no evidence of cellulitis. MS/ Extremity: Pulses equal, no cyanosis. Neurovascular intact. Full, normal range of motion. 14:13 Neck: Trachea: Stoma with 4.0 ETT. Vital Signs: 13:18 BP 117 / 55; Pulse 87; Resp 20; Temp 98.4(A); Pulse Ox 98% on 10 lpm Non rebreahter on nj1 trach; Weight 58.97 kg (R); Height 6 ft. 0 in. ; 14:17 BP 149 / 62; Pulse 81; Resp 20; Pulse Ox 98% on 30% cool aerosol, trache collar.; nj1 15:08 BP 123 / 64; Pulse 78; Resp 18; Pulse Ox 100% ; nj1 13:18 Body Mass Index 17.63 (58.97 kg, 182.88 cm) nj1 MDM: 13:33 Patient medically screened. ms3 14:13 Differential Diagnosis Stoma dislodgement. Data reviewed: vital signs, nurses notes, ms3 and as a result, I will discharge patient. Historians other than the Patient: EMS: [facility]. Counseling: I had a detailed discussion with the patient and/or guardian regarding: the historical points, exam findings, and any diagnostic results supporting the discharge/admit diagnosis, the need for outpatient follow up, to return to the emergency department if symptoms worsen or persist or if there are any questions or concerns that arise at home. Special discussion: I discussed with the patient/guardian in detail that at this point there is no indication for admission to the hospital. It is understood, however, that if the symptoms persist or worsen the patient needs to return immediately for re-evaluation. 03/13 14:50 Order name: RC AEROSOL TUBING EDMS 03/13 14:50 Order name: RC AEROSOL MAXIMUM/DAY EDMS Administered Medications: No medications were administered Disposition Summary: 03/13/23 14:12 Discharge Ordered Location: Home ms3 Condition: Stable ms3 Diagnosis - Tracheostomy complications ms3 Followup: ms3 - With: Private Physician - When: 2 - 3 days - Reason: Recheck today's complaints Discharge Instructions: - Discharge Summary Sheet ms3 - Tracheostomy Tube Safety and Care, Adult ms3 Forms: - Medication Reconciliation Form ms3 - Thank You Letter ms3 - Antibiotic Education ms3 - Prescription Opioid Use ms3 - Patient Portal Instructions ms3 - Leadership Thank You Letter ms3 Signatures: Dispatcher [employer] Jonathan Escalante DO DO ms3 Mary Jo Topete, RN RN nj1
--- NOTE | 2023-03-13 14:13 | ER ---
Nurse's Notes [facility] Name: Douglas Carrillo Age: 57 yrs Sex: Male : 1965 Arrival Date: 03/13/2023 Time: 13:24 Bed 17 Private MD: Diagnosis: Tracheostomy complications Presentation: 03/13 13:18 Chief complaint: EMS states: Dislodged trach. Brought in old one. nj1 13:18 Coronavirus screen: At this time, the client does not indicate any symptoms associated nj1 with coronavirus-19. Ebola Screen: Patient denies travel to an Ebola-affected area in the 21 days before illness onset. Initial Sepsis Screen: Does the patient meet any 2 criteria? No. Patient's initial sepsis screen is negative. Does the patient have a suspected source of infection? No. Patient's initial sepsis screen is negative. Risk Assessment: Do you want to hurt yourself or someone else? Patient reports no desire to harm self or others. Onset of symptoms was March 13, 2023. 13:18 Method Of Arrival: EMS: [facility] nj1 13:18 Acuity: EMMANUEL 4 nj1 Historical: - Allergies: 13:59 Neostigmine Methylsulfate; nj1 13:59 Sulfa (Sulfonamide Antibiotics); nj1 - PMHx: 13:59 CVA; Diabetes - IDDM; GERD; Hypertension; nj1 - Immunization history:: Adult Immunizations unknown. - Social history:: Smoking status: unknown. Screenin:20 [facility] ED Fall Risk Assessment (Adult) Score/Fall Risk Level 0 - 2 = Low Risk nj1 Oriented to surroundings, Maintained a safe environment, Hourly rounding (assess needs \T\ fall precautionary measures) done. Abuse screen: Denies threats or abuse. Denies injuries from another. Nutritional screening: No deficits noted. Tuberculosis screening: No symptoms or risk factors identified. Assessment: 13:20 General: Appears in no apparent distress. uncomfortable, Behavior is calm, cooperative, nj1 appropriate for age. Pain: Denies pain. 13:20 Neuro: Level of Consciousness is awake, alert, obeys commands, Oriented to Unable to nj1 assess, pt is non verbal. Cardiovascular: Patient's skin is warm and dry. Respiratory: Airway via trache Pediatric ET tube in place Respiratory effort is unlabored, Pt trache had dislodged earlier. EMS had placed a pediatric ET tube. 13:48 Reassessment: Call placed to [facility] to request appropriate trach, nurse Monreal nj1 states they don't have any. 14:17 Reassessment: Patient appears in no apparent distress at this time. Patient and/or nj1 family updated on plan of care and expected duration. Pain level reassessed. Trache in place. 30% cool aerosol over trache collar (RT initiated). 15:07 Reassessment: [facility] here to transport [facility] back to [facility]. nj1 Vital Signs: 13:18 BP 117 / 55; Pulse 87; Resp 20; Temp 98.4(A); Pulse Ox 98% on 10 lpm Non rebreahter on nj1 trach; Weight 58.97 kg (R); Height 6 ft. 0 in. ; 14:17 BP 149 / 62; Pulse 81; Resp 20; Pulse Ox 98% on 30% cool aerosol, trache collar.; nj1 15:08 BP 123 / 64; Pulse 78; Resp 18; Pulse Ox 100% ; nj1 13:18 Body Mass Index 17.63 (58.97 kg, 182.88 cm) nj1 ED Course: 13:20 Provided Education on: call light. nj1 13:20 Patient has correct armband on for positive identification. Bed in low position. Call nj1 light in reach. Side rails up X 1. 13:20 Maintain EMS IV. Dressing intact. Site clean \T\ dry. Gauge \T\ site: 22g R FA. nj 1 13:26 Patient arrived in ED. nj1 13:27 Jonathan Silva DO is Attending Physician. ms3 13:50 Mary Jo Topete, RN is Primary Nurse. nj1 13:59 Triage completed. nj1 13:59 Arm band placed on. nj1 14:19 No provider procedures requiring assistance completed. nj1 15:06 IV discontinued, intact, bleeding controlled. nj1 Administered Medications: No medications were administered Medication: 14:10 VIS not applicable for this client. nj1 Outcome: 14:00 Discharged to [facility]. Report called to Nurse Monreal nj1 14:00 Condition: stable nj1 14:00 Discharge instructions given to [facility]. 14:12 Discharge ordered by . ms3 15:10 Patient left the ED. nj1 Signatures: Jonathan Silva DO DO ms3 Mary Jo Topete, RN RN nj1 Corrections: (The following items were deleted from the chart) 14:17 13:20 Respiratory: Airway Respiratory effort is unlabored, Pt trach had dislodged nj1 earlier. EMS had placed a nj1
[2023-03-13 15:22] VITALS: BP 123/64; O2SAT 100
== END 2023-03-13 15:10 | disposition home or self-care (01) ==
LOC: ER 13:24
DX: J95.09 Other tracheostomy complication (principal); Z88.2 Allergy status to sulfonamides; Z88.8 Allergy status to other drugs, medicaments and biological substances; Z86.73 Personal history of transient ischemic attack (TIA), and cerebral infarction without residual deficits; I10 Essential (primary) hypertension
CPT/HCPCS: 99283

== ENCOUNTER 2023-05-27 19:58 | Emergency (ER) | payer BC ==
--- OUTSIDE RECORDS SUMMARY | 2023-05-27 20:44 | XMS REPORT | Continuity of Care Document ---
:1965 Author Organization [facility] t Address [address] [facility] [place] [address] Care Team Providers Name Role Phone MART MCKEON Primary Care Physician Unavailable [id number] Attending Clinician Unavailable PHYSICIAN, NON ASSOCIATED Attending Clinician Unavailable JUANY ALBA Attending Clinician Unavailable GC_BAHC_Todd_J Attending Clinician Unavailable BRIDGET WEBER Attending Clinician Unavailable DARREL LEYVA Attending Clinician Unavailable Migel WELLS, Mateusz Trevino Attending Clinician Yassine Lafleur MD Attending Clinician Dilcia Olivas MD Attending Clinician Autumn WELLS, Darrel Manrique Attending Clinician [phone] KNOW, DOES_NOT Attending Clinician Unavailable LOVE CHILDRESS Attending Clinician Unavailable Ashutosh DAO, Shayan Beckett Attending Clinician Unavailable ONEIDA STOUT Attending Clinician Unavailable Renetta Desai DO Attending Clinician Jin Valiente MD Attending Clinician Oneida Stout DO Attending Clinician Love Don Attending Clinician CIRILO MARTINES Attending Clinician Unavailable Cirilo Martines MD Attending Clinician Doctor Unassigned, [place] Attending Clinician Unavailable DEVIKA ORR Attending Clinician Unavailable Devika Orr DO Attending Clinician RENETTA DESAI Attending Clinician Unavailable WIL VAN Attending Clinician Unavailable WIL VAN Attending Clinician Unavailable Wil Van DO Attending Clinician RASHAD BURNETT Attending Clinician Unavailable Mateusz Stiles Attending Clinician Arielle Palomino MD Attending Clinician Rashad Burnett MD Attending Clinician Sheyla Lin MD Attending Clinician SAILAJA NATHAN Attending Clinician Unavailable Sailaja Nathan Attending Clinician Marques Schaefer Attending Clinician Daniel Nazario Attending Clinician Unavailable Darryl Chavis Attending Clinician Unavailable RAIMUNDO CHAPIN Attending Clinician Unavailable Raimundo Chapin Attending Clinician NOEMI REED Attending Clinician Unavailable Reno Smithrees Attending Clinician Pob, Adc Lab Main Attending Clinician Unavailable Darrel Wooten MD Attending Clinician Vtc-Lab Attending Clinician Unavailable Radiology Attending Clinician Unavailable RADIOLOGY Attending Clinician Unavailable GC_ALEXSANDRA_Gregorio_J Attending Clinician Unavailable Zach Bonilla MD Attending Clinician Nurse, [facility] Nephrology Attending Clinician Unavailable Only, Adc Test Attending Clinician Unavailable DARREL WOOTEN Attending Clinician Unavailable Aman DAO, Raven Attending Clinician Unavailable Chip WELLS, Don Attending Clinician Jatinder Schulz MD Attending Clinician SANDEE CASTILLO Attending Clinician Unavailable Quinton Milton Attending Clinician Kody aVldez Attending Clinician Valerie Anders Attending Clinician Nasir Mcgarry Attending Clinician Noemy Nelson Attending Clinician Rebecca Garzon Attending Clinician Merlin Malik Attending Clinician [id number] Admitting Clinician Unavailable PHYSICIAN, NON ASSOCIATED Admitting Clinician Unavailable GC_BAHAlysa_Fede_J Admitting Clinician Unavailable MATEUSZ LAINEZ Admitting Clinician Unavailable JIN VALIENTE Admitting Clinician Unavailable Jin Valiente MD Admitting Clinician DEVIKA ORR Admitting Clinician Unavailable CIRILO MARTINES Admitting Clinician Unavailable RASHAD BURNETT Admitting Clinician Unavailable Rashad Burnett MD Admitting Clinician SAPNA MCCONNELL JOANA Admitting Clinician Unavailable Lazaro McconnellSapna Joana Admitting Clinician Daniel Nazario Admitting Clinician Unavailable ALLISON ARIZMENDI Admitting Clinician Unavailable Rhina Albert Admitting Clinician Reno Smith Admitting Clinician TOM_ALEXSANDRA_Gregorio_J Admitting Clinician Unavailable Don Saunders MD Admitting Clinician Kody Valdez Admitting Clinician Valerie Anders Admitting Clinician Nasir Mcgarry Admitting Clinician Noemy Nelson Admitting Clinician Payers Payer Name Policy Type Policy Number Effective Date Expiration Date Zheng kelley WELLCARE/WELLCARE [id number] 2021 [place] 00:00:00 WLCM WLCM [id number] WELLCARE [place] [id number] 2020 PLUS CHOICE 00:00:00 MEDICARE PART A [id number] 2017 \\T\\ B 00:00:00 BLUE CROSS [id number] [id number]MEDICARE REPLACEMENT/ADVANT AGE - PPO) MEDICARE-PART B 5 [id number] 2022 00:00:00 BCBS MEDICARE [id number] 2022 ADVANTAGE 00:00:00 BCBS [facility] [id number] 2022 MEDICARE ADV 00:00:00 MANAGED MEDICARE [id number] 2021 PPO/FFS GENERIC 00:00:00 Problems Condition Condition Condition Status Onset Resolution Last Treating Co mments Source Name Details Category Date Date Treatment Clinician Date Unintentio Unintentio Problem Active [facility] nal weight nal Weight 5-03 Me dical loss Loss 00:00: 00 Aspiration Aspiration Disease Recurre [facility] pneumonia pneumonia nce 5-03 [facility] Septic Septic Disease Active [facility] shock shock 5[facility]03 [facility] Cough Cough Problem Active [facility] 4-14 Medical 00:00: 00 Irritant Irritant Problem Active [facility] a contact Contact 3-30 Medical dermatitis Dermatitis 00:00: due to Due to 00 contact Contact with urine with Urine and/or And/or feces Feces Altered Altered Problem Active [facility] mental Mental 3-30 Medical status Status 00:00: 00 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[facility] tive tive 3-16 Medical disorder Disorder 00:00: 00 Thrombocyt Thrombocyt Problem Active 2023-0 [facility] osis osis 3-16 Medical 00:00: 00 Vitamin D Vitamin D Problem Active Della via deficiency Deficiency 3-02 Me dical 00:00: 00 Intertrigo Intertrigo Problem Active [facility] 3-02 Medical 00:00: 00 Pneumonia Pneumonia Problem Active [facility] via 3-01 Medical 00:00: 00 Gastrostom Gastrostom Problem Active [facility] y present y Present 2-22 Medi michelle 00:00: 00 Amputated Amputated Problem Active [facility] via foot Foot 2-22 Medical 00:00: 00 Seen in Seen in Problem Active [facility] nursing Nursing 2-22 Medical home Home 00:00: 00 Hypothyroi Hypothyroi Problem Active [facility] dism dism 2-20 Medical 00:00: 00 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 00:00: 00 Secondary Secondary Problem Active [facility] via immune Immune 2-20 Medical deficiency Deficiency 00:00: disorder Disorder 00 Hypercoagu Hypercoagu Problem Active [facility] lability lability 2-20 Medica l state State 00:00: 00 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 michelle major Major 00:00: depression Depression 00 Speech and Speech and Problem Active [facility] language Language 2-20 Medica l deficit as Deficit as 00:00: late Late 00 effect of Effect of cerebrovas Cerebrovas cular cular accident Accident Hemiplegia Hemiplegia Problem Active [facility] and/or And/or 2-20 Medical hemiparesi Hemiparesi 00:00: s s 00 following Following stroke Stroke Chronic Chronic Problem Active [facility] hypoxemic Hypoxemic 2-20 Medi michelle respirator Respirator 00:00: y failure y Failure 00 Secondary Secondary Problem Active Della via hyperparat Hyperparat 2-20 Me dical hyroidism hyroidism 00:00: 00 Unable to Unable to Problem Active [facility] via speak Speak 2-20 Medical 00:00: 00 Catheter-a Catheter-a Problem Active [facility] ssociated ssociated 2-20 Medi michelle urinary Urinary 00:00: tract Tract 00 infection Infection Pain of Pain of Problem Active [facility] left Left 2-07 Medical shoulder Shoulder 00:00: joint Joint 00 Penile Penile Disease Active Univers pain pain 1-17 ity of 00:00: [place] [address] Medical Branch Chronic Chronic Disease Active Univers diastolic diastolic 9-23 ity of congestive [place]ive [place] heart heart 00 Medical failure failure Branch Pneumonia Pneumonia Disease Active Uni vers of right of right 9 ity of lower lobe [place] lobe [place] due to due to 00 Medical infectious infectious Br anch organism organism LOW BLOOD LOW BLOOD Diagnosis Active 2022-03-02 [facility] SUGAR AND SUGAR AND 03-02 21:17:00 l LOW O2 LOW O2 00:00: Buck Active 00 03/02/2022 [facility] ESRD ON ESRD ON Diagnosis Active 2022-03-22 [facility] DIALYSIS, DIALYSIS, 03-02 08:58:00 l ACUTE ACUTE 00:00: Buck HYPOXEMIC HYPOXEMIC 00 RESPIR RESPIR Active 03/02/2022 [facility] DEVEN DEVEN Diagnosis [facility] B[facility] 12-30 11:00:00 l Active 00:00: Buck 12/30/2021 00 [facility] CVA CVA Diagnosis Active 2022-01-24 Mem oria Active 12-30 16:13:00 l 12/30/2021 00:00: Stephen turner [address] Dizzy Dizzy Disease Active Univers spells spells 8-15 ity of 00:00: [place] [address] Medical Branch Hypoglycem Hypoglycem Disease Active U nivers ia ia 8-12 ity of 00:00: [place] [facility] Obesity Obesity Disease Active Univers (BMI (BMI 7-15 ity of 30-39.9) 30-39.9) 00:00: [place] [address] Medical Branch Dyslipidem Dyslipidem Disease Active U nivers ia ia 7-15 ity of 00:00: [place] [facility] History of History of Disease Active U nivers TIA TIA 7-15 ity of (transient (transient [place] ischemic ischemic 00 Medica l attack) attack) Branch Elevated Elevated Disease Active Unive rs troponin I troponin I 7-15 it y of level level 00:00: Medical Branch 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 7-15 ity of kidney kidney 00:00: [place] disease disease 00 Medical Branch Elevated Elevated Disease Active Unive rs brain brain 7-15 ity of natriureti natriureti 00:[place] c peptide c peptide 00 Medi michelle (BNP) (BNP) Branch level level Acute on Acute on Disease Active Unive rs chronic chronic 7-15 [place]y of diastolic diastolic 00:[place] CHF CHF 00 Medical (congestiv (congestiv Br anch e heart e heart failure), failure), NYHA class NYHA class 3 3 CHF CHF Disease Active Univers (congestiv (congestiv 7-14 it y of e heart e heart 00:00: [place] failure) failure) 00 Medica l Branch Type 2 Type [address] [facility] diabetes diabetes 30 [facility] mellitus mellitus 00:00: Medica l with with 00 Center complicati complicati on, with on, with long-term long-term current current use of use of insulin insulin Type 2 Type [address] [facility] diabetes diabetes nce 04-29 [facility] mellitus mellitus 00:00: Medica l with with 00 Center complicati complicati on, with on, with long-term long-term current current use of use of insulin insulin Olecranon Olecranon Disease Active [facility] bursitis bursitis 04-29 [facility] of right of right 00:00: Medica l elbow elbow 00 Center Diarrhea, Diarrhea, Disease Active [facility] unspecifie unspecifie 04-29 Eva kes d type d type 00:00: Center Essential Essential Disease Active [facility] hypertensi hypertensi 04-29 Eva kes on on 00:00: Medical 00 Center Hypoglycem Hypoglycem Disease Active U nivers ic coma ic coma 8-21 ity of 00:00: [place] [facility] Callus of Callus of Disease Active Uni vers foot foot 5-24 ity of 00:00: Medical Branch Essential Essential Disease Active Uni vers hypertensi hypertensi 5-24 it y of on on 00:00: [place] 00 Medical Branch CELLULITIS CELLULITI Diagnosis Active 2015-10-13 [facility] ,BELOW THE S,BELOW 10-05 11:32:00 l KNEE THE KNEE 00:00: Buck INFECTION, INFECTION, 00 DIAB DIAB Active 10/06/2015 [facility] STROKE STROKE Diagnosis Active 2014-072015-07-07 M emoria SYMPTOMS SYMPTOMS 09-07 08:23:00 l Active 07:00: [place] 07/07/2015 00 [place] CVA CVA Diagnosis Active 2014-072015-07-09 Mem oria Active 09-07 11:51:00 l 07/07/2015 07:00: Stephen n 00 [place] R/O TIA, R/O TIA, Diagnosis Active 2014-072015-07-07 [facility] R/O CVA R/O CVA 09-07 09:02:00 l Active 07:00: Buck 07/07/2015 00 [place] LEFT LOWER LEFT Diagnosis Active 2014-12-05 [facility] EXTREM LOWER 12-05 11:30:00 l ABSCESS EXTREM 00:00: [place] ABSCESS 00 Active 12/05/2014 [facility] [id number], 48723, Diagnosis Active 2014-12-08 Me moria LEFT LOWER LEFT LOWER 12-03 09:44:00 l EXTREMITY EXTREMITY 00:00: Herm bhavin ABSCESS , ABSCESS , 00 DI DI Active 12/03/2014 [facility] [id number], [id number], Diagnosis Active 2014-11-05 Me moria [id number], 10149, 4-02 09:08:00 l [id number], [id number], 00:00: Buck CELLULITIS CELLULITIS 00 LEFT FARAZ LEFT FARAZ Active 10/30/2014 [facility] LEFT FOOT LEFT FOOT Diagnosis Active 2014-11-05 [facility] CELLULITIS CELLULITIS 10-23 09:07:00 l , , 00:00: [place] OSTEOMYELI OSTEOMYELI 00 TIS DIAB TIS DIAB Active 10/23/2014 [facility] LEFT FOT LEFT FOT Diagnosis Active 2014-10-23 [facility] SWOLLEN SWOLLEN 10-23 23:57:00 l POST POST 00:00: Buck SURGERY SURGERY 00 Active 10/23/2014 [facility] HEMORRHAGE HEMORRHAG Diagnosis Active 2014-09-10 Memoria E Active 09-08 16:35:00 l 09/08/2014 21:00: Stephen turner 00 [facility] [address], [id number], Diagnosis Active 2014-09-03 [facility] 15481, 68001, 08-18 05:53:00 l HYPERTROPH HYPERTROPH 00:00: He rmann Y FIRST Y FIRST 00 METATARS METATARS Active 08/18/2014 [facility] OSTEOMYELI Diagnosis Active 2012-12-27 [facility] TIS,CELLUL OSTEOMYELI 12-14 21:46:00 l ITIS,DIABE TIS,CELLUL 17:00: He rmann PILAR ITIS,DIABE 00 PILAR Active 12/14/2012 [facility] 730.27 - 730.27 - Diagnosis [facility] OSTEOMYELI 12-05 15:16:00 l TIS N TIS N 00:01: [place] Active 00 12/05/2012 [facility] BLOW THE BLOW THE Diagnosis Active 2014-12-08 [facility] KNEE KNEE 07-31 15:23:00 l AMPUTATION AMPUTATION 07:00: He rmann LEFT LOWER LEFT LOWER 00 EXTR EXTR Active 07/31/2000 [facility] Type 1 Type 1 Problem Active [facility] diabetes Diabetes Medica l mellitus Mellitus 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 Problem Active Della via chronic Chronic Medical kidney Kidney disease Disease Hypertensi Hypertensi Problem Active [facility] ve heart ve Heart Medica l and renal and Renal disease Disease with with (congestiv (Congestiv e) heart e) Heart failure Failure Dysphagia Dysphagia Problem Active Della via as a late as a Late Medi michelle effect of Effect of cerebrovas Cerebrovas cular cular accident Accident Chronic Chronic Problem Active [facility] obstructiv Obstructiv Me dical e lung e Lung disease Disease Chronic Chronic Problem Active [facility] kidney Kidney Medical disease Disease stage 4 Stage 4 Neurogenic Neurogenic Problem Active [facility] bladder Bladder Medical Benign Benign Problem Active [facility] prostatic Prostatic Medi michelle hyperplasi Hyperplasi a a Urinary Urinary Problem Active [facility] catheter Catheter Medica l in situ in Situ Amputated Amputated Problem Active [facility]ella via below knee below Knee Me dical Attention Attention Problem Active Della via to to Medical tracheosto Tracheosto my my Bed-ridden Bed-ridden Problem Active [facility] Medical Peripheral Peripheral Problem Active [facility] angiopathy Angiopathy Me dical due to Due to type 1 Type 1 diabetes Diabetes mellitus Mellitus Amputation Amputation Problem Active [facility] through through Medical metatarsal Metatarsal bones Bones At risk of At Risk of Problem Active [facility] pressure Pressure Medica l ulcer Ulcer Simple Simple Problem Active 2022-01-03 Isidro elisa obesity obesity 08:41:32 l (disorder) (disorder) He rmann Active Problem 01/03/2022 [facility] Diabetic Diabetic Problem Active 2022-03-17 Mem[facility] foot ulcer foot ulcer 22:50:30 l (disorder) (disorder) He rmann Active Problem 03/17/2022 [facility] Dyslipidem Dyslipide Problem Active 2022-03-17 Memoria ia due to joo due to 22:50:30 l type 1 type 1 [place] diabetes diabetes mellitus mellitus (disorder) (disorder) Active Problem 03/17/2022 [facility] Finding of Finding Problem Active 2022-03-17 [facility] body mass of body 22:50:30 l index mass index Stephen n (finding) (finding) Active Problem 03/17/2022 [facility] Foot pain Foot Problem Active 2022-03-17 Me moria (finding) pain 22:50:30 l (finding) Buck Active Problem 03/17/2022 [facility] Hyperchole Hyperchol Problem Active 2022-03-17 Memoria sterolemia esterolemi 22:50:30 l (disorder) a Stephen n (disorder) Active Problem 03/17/2022 [facility] Hyperglyce Hyperglyc Problem Active 2022-03-17 Memoria joo due to emia due 22:50:30 l type 1 to type 1 [place] diabetes diabetes mellitus mellitus (disorder) (disorder) Active Problem 03/17/2022 [facility] Hypertensi Hypertens Problem Active 2022-03-17 Memoria ve rocio 22:50:30 l disorder, disorder, Herm bhavin systemic systemic arterial arterial (disorder) (disorder) Active Problem 03/17/2022 [facility] Ischemic Ischemic Problem Active 2022-03-17 Mem[facility] stroke stroke 22:50:30 l (disorder) (disorder) He rmann Active Problem 03/17/2022 [facility], [facility] Obesity Obesity Problem Active 2022-03-17 Me moria (disorder) (disorder) 22:50:30 l Active [place] Problem 03/17/2022 [facility] Osteomyeli Problem Active 2022-03-17 M emoria tis Osteomyeli 22:50:30 l (disorder) tis Stephen n (disorder) Active Problem 03/17/2022 foot. [facility] Deficiency Deficienc Problem Active 2022-03-17 Memoria of y of 22:50:30 l macronutri macronutri He rmann ents ents (disorder) (disorder) Active Problem 03/17/2022 [facility] Hyponatrem Hyponatre Problem Active 2022-03-17 Memoria ia joo 22:50:30 l (disorder) (disorder) He rmann Active Problem 03/17/2022 [facility] Pseudomona Pseudomon Problem Active 2022-03-17 Memoria s as 22:50:30 l (organism) (organism) He ann Active Problem 03/17/2022 Problem added by Discern Expert. [facility] Undernutri Undernutr Problem Active 2022-03-17 Memoria tion ition 22:50:30 l (disorder) (disorder) He rmann Active Problem 03/17/2022 [facility] DYSARTHRIA DYSARTHRI Diagnosis Active 2022-01-24 Memoria AND A AND 16:13:00 l ANARTHRIA ANARTHRIA Herm bhavin Active [facility] END STAGE END STAGE Diagnosis Active 2022-03-22 Memoria RENAL RENAL 08:58:00 l DISEASE DISEASE [place] Active [facility] ACUTE ACUTE Diagnosis Active 2022-03-22 Mem oria RESPIRATOR RESPIRATOR 08:58:00 l Y FAILURE Y FAILURE Herm bhavin WITH WITH HYPOXIA HYPOXIA Active [facility] PNEUMONIA, PNEUMONIA Diagnosis Active 2022-03-22 Memoria UNSPECIFIE , 08:58:00 l D ORGANISM UNSPECIFIE He rmann D ORGANISM Active [facility] Peripheral Periphera Problem Resolve 2014-09-05 Memoria meal grinder tender l d 10:18:42 l y disorder meal grinder tender He rmann associated y disorder with associated diabetes with mellitus diabetes (disorder) mellitus (disorder) Resolved Problem 09/05/2014 [facility] Entire Entire Problem Resolve 2015-07-11 Mem oria appendix appendix d 04:05:14 l (body (body Buck structure) structure) Resolved Problem 07/11/2015 [facility] Appendix Appendix Problem Resolve 2012-12-23 Memoria Resolved d 21:07:29 l Problem Buck 12/23/2012 [facility] Diabetes Diabetes Problem Resolve 2012-12-23 [facility] mellitus mellitus d 21:07:29 l type 2 type 2 Leopold w/periph w/periph circ circ disease, disease, not stated not stated as as uncontroll uncontroll ed ed Resolved Problem 12/23/2012 [facility] HEMORRHAGE HEMORRHAG Diagnosis Active 2014-09-10 [facility] NOS E NOS 16:35:00 l [facility] FOOT PAIN/ FOOT Diagnosis Active 2014-09-09 [facility] POSSIBLE PAIN/ 20:50:00 l BLOOD CLOT POSSIBLE Herm bhavin BLOOD CLOT Active [facility] ADMINISTRT ADMINISTR Diagnosis Active 2014-12-08 [facility] VE ENCOUNT TVE 15:23:00 l NOS ENCOUNT Leopold NOS Active [facility] OTHER OTHER Diagnosis Active 2015-07-09 [facility] oria SEQUELAE SEQUELAE 11:51:00 l OF OF [place] CEREBRAL CEREBRAL INFARCTION INFARCTION Active [facility] ENCNTR FOR ENCNTR Diagnosis Active 2015-07-08 Memoria GENERAL FOR 08:55:00 l ADULT GENERAL [place] MEDICAL ADULT EXAM W/ MEDICAL EXAM W/ Active [facility] OTHER OTHER Diagnosis Active 2015-10-13 Me moria 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:32:00 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 [facility] Allergies, Adverse Reactions, Alerts Allergy Allergy Status Severity Reaction(s) Onset Inactive Treating Comm ents Source Name Type Date Date Clinician NEOSTIGM DRUG Active Other-Cmnt Univ ers INE INGREDI 04-21 ity of 00:00: [place] 00 Medical Branch Neostigm Propensi Active Other - See bradycar d Univers ine ty to comments 04-21 ia ity of adverse 00:00: [place] reaction 00 Medical s Branch Sulfa DA Active U Anaphylaxis [facility] (Sulfona 02-23 mide 00:00: Antibiot 00 ics) neostigm DA Active SV BRADYCARDIA [facility] ine 02-16 [place] 00:00: Health[facility] 00 are [facility] SULFA DA Active U UNKNOWN [facility] AND 01-24 [place] SULFA 00:00: Health DRUGS 00 are [facility] Sulfa Drug Active Other - See Unive rs (Sulfona Allergy comments 04-18 ity o f mide 00:00: [place] Antibiot 00 Medical ics) Branch SULFA Drug Active Hives Univers (SULFONA Class 04-18 ity of MIDE 00:00: [place] ANTIBIOT 00 Medical ICS) Branch OTHER Allergy Active High Anaphylaxis SLSL 04-24 00:00: 00 SULFUR Allergy Active High 2017- SLSL 04-24 00:00: 00 SULFUR DRUG Active High Other-Cmnt Univer s INGREDI 04-24 ity of 00:00: [place] 00 Medical Branch Sulfur Allergy Active [facility] to 04-24 Medical substanc 00:00: e 00 Other Propensi Active Anaphylaxis [facility]ESOLE[facility] ty to 04-24 SSOC[facility]ATED [facility] adverse 00:00: WITH Medical reaction 00 SWOLLEN Center s FACE Sulfur Propensi Active ALL SULFA [facility] ty to 04-24 - SULPHUR [facility] adverse 00:00: BASE Medical reaction 00 MEDICATIO Cente r s NS Neostigm Allergy Active Bradycardia Pr ivia ine to Medical substanc e SULFA Allergy Active [facility] (SULFONA to Medical MIDE substanc ANTIBIOT e ICS) sulfa sulfa Active Memoria drugs drugs l [place] Betadine Betadine Active Memori a l [place] NKFA NKFA Active Memoria l [place] Family History Family Member Diagnosis Comments Start Date Stop Date Source Natural mother Heart disease [facility] Social History Social Habit Start Date Stop Date Quantity Comments Source History of tobacco Passive smoker Un iversity of use [place] [facility] History SDOH Social Unive rsity of Connections [facility] Med ical Together Branch History SDOH Social Unive rsity of Connections [facility] Medical Branch History SDOH Social Unive rsity of [facility] Medical Membership Branch History SDOH Social Unive rsity of [facility] Medical Meetings Branch History SDOH [facility] Alcohol Frequency Medical Center History SDOH [facility] Alcohol Std Drinks Medica l Center History SDOH [facility] Alcohol Binge Medical Devi ter Exposure to 2022-08-06 2022-08-16 Not sure University of SARS-CoV-2 (event) 00:00:00 13:49:00 [place] [facility] History SDOH Social 2022-08-16 2022-08-16 1 Unive rsity of Connections Phone 00:00:00 00:00:00 [place] M edical Branch History SDOH Social 2022-08-16 2022-08-16 3 Unive rsity of Connections Living 00:00:00 00:00:00 [place] [facility] History SDOH 2022-08-16 2022-08-16 0 University o f Physical Activity 00:00:00 00:00:00 [facility] edical DPW Branch History SDMT 2022-08-16 2022-08-16 0 University o f Physical Activity 00:00:00 00:00:00 [facility] edical MPS Branch History SDOH 2022-08-16 2022-08-16 5 University o f Financial 00:00:00 00:00:00 [facility] History SDOH Food 2022-08-16 2022-08-16 1 [facility] 00:00:00 00:00:00 [facility] History SDOH Food 2022-08-16 2022-08-16 1 [facility] Scarcity 00:00:00 00:00:00 [facility] History SDMT 2022-08-16 2022-08-16 2 [facility] Med 00:00:00 00:00:00 [facility] History SDMT 2022-08-16 2022-08-16 2 [facility] Transport Non-Med 00:00:00 00:00:00 [facility] edical Branch Education 2022-08-16 2022-08-16 13 [facility] 00:00:00 00:00:00 [facility] Tobacco use and 2022-08-16 2022-08-16 Smokeless [facility] exposure 00:00:00 00:00:[address] [facility] dical Branch Alcohol Comment 2018-04-24 2018-04-[address] [facility] 00:[facility]00 [facility] Alcohol intake 2018-04-24 2018-04-24 [facility] alcohol [facility] (finding) Tobacco Comment 2018-04-24 2018-04-24 PT HAS SMOKED [facility] 00:00:00 00:00:00 [facility]IJUANA IN THE Medical Center PAST , THE TIME HE WAS AMPUTATED Social History 2014-10-24 2014-10-24 [facility] 05:41:33 05:41:33 Sex Assigned At [address] [facility] 00:00:00 [facility] Smoking Status Start Date Stop Date Source Never Smoker [facility]ations Ordered Filled Start Stop Current Ordering Indication Dosage Frequency Signature Comments Components Source Medication Medication Date Date Medication? Clinician (SIG) Name Name acetaminoph 0 Yes 650mg Take [address] [facility]11 tablets [facility] (TYLENOL) 14:05: (650 mg Medic al 325 MG 07 total) by Center tablet mouth every 4 (four) hours as needed for Pain. acetylcyste 0 Yes 1mL Take [address] [facility] 5-11 by [facility] (MUCOMYST) 14:05: nebulizati M edical 100 mg/mL 07 on every Center (10 %) 10% 12 nebulizer (twelve) solution hours. amLODIPine 0 Yes 10mg QD Take 1 [facility] (NORVASC) 5-11 tablet (10 [facility] 10 MG 14:05: mg total) Medical tablet 07 by mouth Center nightly Hold sbp<110, dbp<60, HR <60. aspirin 81 2022-0 Yes 81mg QD Take 1 [facility] chewable 5-11 tablet (81 [facility] tablet 14:05: mg total) Medica l 07 by mouth Center in the morning. budesonide 2022-0 Yes .5mg Take [address] (PULMICORT) 5-11 (0.5 mg [facility] 0.5 mg/2 mL 14:05: total) by M edical nebulizer 07 nebulizati Cent er solution on every 12 (twelve) hours. lactulose 2022-0 Yes 20g Take 30 [facility] (CHRONULAC) 5-11 mLs (20 g [facility] 10 gram/15 14:05: total) by Ms dical mL (15 mL) 07 mouth Center solution every 6 (six) hours as needed (constipat ion). escitalopra 2022-0 Yes 10mg QD Take [address] [facility] oxalate 5-11 tablet (10 [facility] (LEXAPRO) 14:05: mg total) Med ical 10 MG 07 by mouth Center tablet in the morning. FERROUS 2022-0 Yes 5mg Take 5 mg [facility] SULFATE 5-11 by mouth [facility] ORAL 14:05: every 12 Medical 07 (twelve) Center hours Ferrous sulfate 5mg/20ml. Give 5ml every 12 hours. tamsulosin 2022-0 Yes .4mg QD Take 1 [facility] (FLOMAX) 5-11 capsule [facility] 0.4 mg Cap 14:05: (0.4 mg Medi michelle 24 hr 07 total) by Center capsule mouth nightly. hydrOXYzine 2022-0 Yes 10mg Take [address] [facility] (ATARAX) 10 5-11 tablet (10 [facility] MG tablet 14:05: mg total) Med ical 07 by mouth Center every 8 (eight) hours as needed for Itching (pruritus) . insulin 2022-0 Yes 29U Inject 29 [facility] glargine 5-11 [facility] (LANTUS, 14:05: subcutaneo Med ical SEMGLEE) 07 usly every Cente r 100 unit/mL 12 injection (twelve) hours Use as directed. insulin 2022-[address] [facility] lispro 5-11 subcutaneo [facility] (HumaLOG) 14:05: usly every Me dical 100 unit/mL 07 6 (six) Cente r injection hours Per sliding scale. levothyroxi 2022-0 Yes 25ug Take [address] [facility] ne 5-11 tablet (25 [facility] (SYNTHROID, 14:05: mcg total) Medical LEVOTHROID) 07 by mouth Cent er 25 MCG Every tablet morning on an empty stomach. omeprazole 2022-0 Yes 10mg QD Take 1 [facility] (PriLOSEC) 5-11 capsule [facility] 10 MG 14:05: (10 mg Medical capsule 07 total) by Center mouth in the morning. ondansetron 3-0 Yes 4mg Take [address] [facility] (ZOFRAN) 4 5-11 tablet (4 [facility] MG tablet 14:05: mg total) Med ical 07 by mouth Center every 6 (six) hours as needed for Nausea. acetaminoph 3-0 Yes 650mg Take [address] [facility] 5-11 tablets [facility] (TYLENOL) 14:05: (650 mg Medic al 325 MG 07 total) by Center tablet mouth every 4 (four) hours as needed for Pain. acetylcyste 2022-0 Yes 1mL Take [address] in[facility] 5-11 by [facility] (MUCOMYST) 14:05: nebulizati M edical 100 mg/mL 07 on every Center (10 %) 10% 12 nebulizer (twelve) solution hours. amLODIPine 2023-0 Yes 10mg QD Take 1 [facility] (NORVASC) 5-11 tablet (10 [facility] 10 MG 14:05: mg total) Medical tablet 07 by mouth Center nightly Hold sbp<110, dbp<60, HR <60. aspirin 81 2023-0 Yes 81mg QD Take 1 [facility] chewable 5-11 tablet (81 [facility] tablet 14:05: mg total) Medica l 07 by mouth Center in the morning. budesonide 2023-0 Yes .5mg Take [address] (PULMICORT) 5-11 (0.5 mg [facility] 0.5 mg/2 mL 14:05: total) by M edical nebulizer [address] er solution on every 12 (twelve) hours. lactulose 2023-0 Yes 20g Take 30 [facility] (CHRONULAC) 5-11 mLs (20 g [facility] 10 gram/15 14:05: total) by Ms dical mL (15 mL) 07 mouth Center solution every 6 (six) hours as needed (constipat ion). escitalopra 2023-0 Yes 10mg QD Take [address] [facility] oxalate 5-11 tablet (10 [facility] (LEXAPRO) 14:05: mg total) Med ical 10 MG 07 by mouth Center tablet in the morning. FERROUS 2023-0 Yes 5mg Take 5 mg [facility] SULFATE 5-11 by mouth [facility] ORAL 14:05: every 12 Medical 07 (twelve) Center hours Ferrous sulfate 5mg/20ml. Give 5ml every 12 hours. tamsulosin 2023-0 Yes .4mg QD Take 1 [facility] (FLOMAX) 5-11 capsule [facility] 0.4 mg Cap 14:05: (0.4 mg Medi michelle 24 hr 07 total) by Center capsule mouth nightly. hydrOXYzine 2023-0 Yes 10mg Take [address] [facility] (ATARAX) 10 5-11 tablet (10 [facility] MG tablet 14:05: mg total) Med ical 07 by mouth Center every 8 (eight) hours as needed for Itching (pruritus) . insulin 2023-0 Yes 29U Inject 29 [facility] glargine 5-11 [facility] (LANTUS, 14:05: subcutaneo Med ical SEMGLEE) 07 usly every Cente r 100 unit/mL 12 injection (twelve) hours Use as directed. insulin 2022-[address] [facility] lispro 5-11 subcutaneo [facility] (HumaLOG) 14:05: usly every Me dical 100 unit/mL 07 6 (six) Cente r injection hours Per sliding scale. levothyroxi 2022-0 Yes 25ug Take [address] [facility] ne 5-11 tablet (25 [facility] (SYNTHROID, 14:05: mcg total) Medical LEVOTHROID) 07 by mouth Cent er 25 MCG Every tablet morning on an empty stomach. omeprazole 2022-0 Yes 10mg QD Take 1 [facility] (PriLOSEC) 5-11 capsule [facility] 10 MG 14:05: (10 mg Medical capsule 07 total) by Center mouth in the morning. ondansetron 2022-0 Yes 4mg Take [address] [facility] (ZOFRAN) 4 5-11 tablet (4 [facility] MG tablet 14:05: mg total) Med ical 07 by mouth Center every 6 (six) hours as needed for Nausea. acetaminoph 2022-0 Yes 650mg Take [address] [facility] 5-11 tablets [facility] (TYLENOL) 14:05: (650 mg Medic al 325 MG 07 total) by Center tablet mouth every 4 (four) hours as needed for Pain. acetylcyste 2022-0 Yes 1mL Take [address] in[facility] 5-11 by [facility] (MUCOMYST) 14:05: nebulizati M edical 100 mg/mL 07 on every Center (10 %) 10% 12 nebulizer (twelve) solution hours. amLODIPine 2022-0 Yes 10mg QD Take 1 [facility] (NORVASC) 5-11 tablet (10 [facility] 10 MG 14:05: mg total) Medical tablet 07 by mouth Center nightly Hold sbp<110, dbp<60, HR <60. aspirin 81 2022-0 Yes 81mg QD Take 1 [facility] chewable 5-11 tablet (81 [facility] tablet 14:05: mg total) Medica l 07 by mouth Center in the morning. budesonide 2022-0 Yes .5mg Take [address] (PULMICORT) 5-11 (0.5 mg [facility] 0.5 mg/2 mL 14:05: total) by edical nebulizer [address] er solution on every 12 (twelve) hours. lactulose 2022-0 Yes 20g Take 30 [facility] (CHRONULAC) 5-11 mLs (20 g [facility] 10 gram/15 14:05: total) by Ms dical mL (15 mL) 07 mouth Center solution every 6 (six) hours as needed (constipat ion). escitalopra 2022-0 Yes 10mg QD Take [address] [facility] oxalate 5-11 tablet (10 [facility] (LEXAPRO) 14:05: mg total) Med ical 10 MG 07 by mouth Center tablet in the morning. FERROUS 2022-0 Yes 5mg Take 5 mg [facility] SULFATE 5-11 by mouth [facility] ORAL 14:05: every 12 Medical 07 (twelve) Center hours Ferrous sulfate 5mg/20ml. Give 5ml every 12 hours. tamsulosin 2022-0 Yes .4mg QD Take 1 [facility] (FLOMAX) 5-11 capsule [facility] 0.4 mg Cap 14:05: (0.4 mg Medi michelle 24 hr 07 total) by Center capsule mouth nightly. hydrOXYzine 2022-0 Yes 10mg Take [address] [facility] [address] (ATARAX) 10 5-11 tablet (10 [facility] MG tablet 14:05: mg total) Med ical 07 by mouth Center every 8 (eight) hours as needed for Itching (pruritus) . insulin 2022-0 Yes 29U Inject 29 [facility] glargine 5-11 [facility] (LANTUS, 14:05: subcutaneo Med ical SEMGLEE) 07 usly every Cente r 100 unit/mL 12 injection (twelve) hours Use as directed. insulin 2022-[address] [facility] lispro 5-11 subcutaneo [facility] (HumaLOG) 14:05: usly every Me dical 100 unit/mL 07 6 (six) Cente r injection hours Per sliding scale. levothyroxi 2022-0 Yes 25ug Take [address] [facility] ne 5-11 tablet (25 [facility] (SYNTHROID, 14:05: mcg total) Medical LEVOTHROID) 07 by mouth Cent er 25 MCG Every tablet morning on an empty stomach. omeprazole 2023-0 Yes 10mg QD Take 1 [facility] (PriLOSEC) 5-11 capsule [facility] 10 MG 14:05: (10 mg Medical capsule 07 total) by Center mouth in the morning. ondansetron 3-0 Yes 4mg Take [address] [facility] [address] (ZOFRAN) 4 5-11 tablet (4 [facility] MG tablet 14:05: mg total) Med ical 07 by mouth Center every 6 (six) hours as needed for Nausea. acetaminoph 2023-0 Yes 650mg Take [address] [facility] 5-11 tablets [facility] (TYLENOL) 14:05: (650 mg Medic al 325 MG 07 total) by Center tablet mouth every 4 (four) hours as needed for Pain. acetylcyste 2022-0 Yes 1mL Take [address] ine 5-11 by [facility] (MUCOMYST) 14:05: nebulizati M edical 100 mg/mL 07 on every Center (10 %) 10% 12 nebulizer (twelve) solution hours. amLODIPine 3-0 Yes 10mg QD Take 1 [facility] (NORVASC) 5-11 tablet (10 [facility] 10 MG 14:05: mg total) Medical tablet 07 by mouth Center nightly Hold sbp<110, dbp<60, HR <60. aspirin 81 2022-0 Yes 81mg QD Take 1 [facility] chewable 5-11 tablet (81 [facility] tablet 14:05: mg total) Medica l 07 by mouth Center in the morning. budesonide 3-0 Yes .5mg Take [address] (PULMICORT) 5-11 (0.5 mg [facility] 0.5 mg/2 mL 14:05: total) by M edical nebulizer [address] er solution on every 12 (twelve) hours. lactulose 3-0 Yes 20g Take 30 [facility] (CHRONULAC) 5-11 mLs (20 g [facility] 10 gram/15 14:05: total) by Ms dical mL (15 mL) 07 mouth Center solution every 6 (six) hours as needed (constipat ion). escitalopra 2023-0 Yes 10mg QD Take [address] [facility] oxalate 5-11 tablet (10 [facility] (LEXAPRO) 14:05: mg total) Med ical 10 MG 07 by mouth Center tablet in the morning. FERROUS 3-0 Yes 5mg Take 5 mg [facility] SULFATE 5-11 by mouth [facility] ORAL 14:05: every 12 Medical 07 (twelve) Center hours Ferrous sulfate 5mg/20ml. Give 5ml every 12 hours. tamsulosin 3-0 Yes .4mg QD Take 1 [facility] (FLOMAX) 5-11 capsule [facility] 0.4 mg Cap 14:05: (0.4 mg Medi michelle 24 hr 07 total) by Center capsule mouth nightly. hydrOXYzine 2022-0 Yes 10mg Take [address] [facility] [address] (ATARAX) 10 5-11 tablet (10 [facility] MG tablet 14:05: mg total) Med ical 07 by mouth Center every 8 (eight) hours as needed for Itching (pruritus) . insulin 2022-0 Yes 29U Inject 29 [facility] glargine 5-11 [facility] (LANTUS, 14:05: subcutaneo Med ical SEMGLEE) 07 usly every Cente r 100 unit/mL 12 injection (twelve) hours Use as directed. insulin 2022-[address] [facility] lispro 5-11 subcutaneo [facility] (HumaLOG) 14:05: usly every Me dical 100 unit/mL 07 6 (six) Cente r injection hours Per sliding scale. levothyroxi 2022-0 Yes 25ug Take [address] [facility] ne 5-11 tablet (25 [facility] (SYNTHROID, 14:05: mcg total) Medical LEVOTHROID) 07 by mouth Cent er 25 MCG Every tablet morning on an empty stomach. omeprazole 3-0 Yes 10mg QD Take 1 [facility] (PriLOSEC) 5-11 capsule [facility] 10 MG 14:05: (10 mg Medical capsule 07 total) by Center mouth in the morning. ondansetron 3-0 Yes 4mg Take [address] [facility] [address] (ZOFRAN) 4 5-11 tablet (4 [facility] MG tablet 14:05: mg total) Med ical 07 by mouth Center every 6 (six) hours as needed for Nausea. acetaminoph 2023-0 Yes 650mg Take [address] [facility] 5-11 tablets [facility] (TYLENOL) 14:05: (650 mg Medic al 325 MG 07 total) by Center tablet mouth every 4 (four) hours as needed for Pain. acetylcyste 2023-0 Yes 1mL Take [address] ine 5-11 by [facility] (MUCOMYST) 14:05: nebulizati M edical 100 mg/mL 07 on every Center (10 %) 10% 12 nebulizer (twelve) solution hours. amLODIPine 2023-0 Yes 10mg QD Take 1 [facility] (NORVASC) 5-11 tablet (10 [facility] 10 MG 14:05: mg total) Medical tablet 07 by mouth Center nightly Hold sbp<110, dbp<60, HR <60. aspirin 81 2023-0 Yes 81mg QD Take 1 [facility] chewable 5-11 tablet (81 [facility] tablet 14:05: mg total) Medica l 07 by mouth Center in the morning. budesonide 2023-0 Yes .5mg Take [address] (PULMICORT) 5-11 (0.5 mg [facility] 0.5 mg/2 mL 14:05: total) by M edical nebulizer [address] er solution on every 12 (twelve) hours. lactulose 2023-0 Yes 20g Take 30 [facility] (CHRONULAC) 5-11 mLs (20 g [facility] 10 gram/15 14:05: total) by Ms dical mL (15 mL) 07 mouth Center solution every 6 (six) hours as needed (constipat ion). escitalopra 2023-0 Yes 10mg QD Take [address] [facility] [address] [facility] oxalate 5-11 tablet (10 [facility] (LEXAPRO) 14:05: mg total) Med ical 10 MG 07 by mouth Center tablet in the morning. FERROUS 2023-0 Yes 5mg Take 5 mg [facility] SULFATE 5-11 by mouth [facility] ORAL 14:05: every 12 Medical 07 (twelve) Center hours Ferrous sulfate 5mg/20ml. Give 5ml every 12 hours. tamsulosin 2023-0 Yes .4mg QD Take 1 [facility] (FLOMAX) 5-11 capsule [facility] 0.4 mg Cap 14:05: (0.4 mg Medi michelle 24 hr 07 total) by Center capsule mouth nightly. hydrOXYzine 2023-0 Yes 10mg Take [address] [facility] [address] (ATARAX) 10 5-11 tablet (10 [facility] MG tablet 14:05: mg total) Med ical 07 by mouth Center every 8 (eight) hours as needed for Itching (pruritus) . insulin 2022-0 Yes 29U Inject 29 [facility] glargine 5-11 [facility] (LANTUS, 14:05: subcutaneo Med ical SEMGLEE) 07 usly every Cente r 100 unit/mL 12 injection (twelve) hours Use as directed. insulin 2022-[address] [facility] lispro 5-11 subcutaneo [facility] (HumaLOG) 14:05: usly every Me dical 100 unit/mL 07 6 (six) Cente r injection hours Per sliding scale. levothyroxi 2022-0 Yes 25ug Take [address] [facility] ne 5-11 tablet (25 [facility] (SYNTHROID, 14:05: mcg total) Medical LEVOTHROID) 07 by mouth Cent er 25 MCG Every tablet morning on an empty stomach. omeprazole 2022-0 Yes 10mg QD Take 1 [facility] (PriLOSEC) 5-11 capsule [facility] 10 MG 14:05: (10 mg Medical capsule 07 total) by Center mouth in the morning. ondansetron 2022-0 Yes 4mg Take [address] [facility] (ZOFRAN) 4 5-11 tablet (4 [facility] MG tablet 14:05: mg total) Med ical 07 by mouth Center every 6 (six) hours as needed for Nausea. acetaminoph 2022-0 Yes 650mg Take [address] [facility] 5-11 tablets [facility] (TYLENOL) 14:05: (650 mg Medic al 325 MG 07 total) by Center tablet mouth every 4 (four) hours as needed for Pain. acetylcyste 0 Yes 1mL Take [address] in[facility] 5-11 by [facility] (MUCOMYST) 14:05: nebulizati M edical 100 mg/mL 07 on every Center (10 %) 10% 12 nebulizer (twelve) solution hours. amLODIPine 2022-0 Yes 10mg QD Take 1 [facility] (NORVASC) 5-11 tablet (10 [facility] 10 MG 14:05: mg total) Medical tablet 07 by mouth Center nightly Hold sbp<110, dbp<60, HR <60. aspirin 81 2022-0 Yes 81mg QD Take 1 [facility] chewable 5-11 tablet (81 [facility] tablet 14:05: mg total) Medica l 07 by mouth Center in the morning. budesonide 3-0 Yes .5mg Take [address] (PULMICORT) 5-11 (0.5 mg [facility] 0.5 mg/2 mL 14:05: total) by edical nebulizer [address] er solution on every 12 (twelve) hours. lactulose 2022-0 Yes 20g Take 30 [facility] (CHRONULAC) 5-11 mLs (20 g [facility] 10 gram/15 14:05: total) by Ms dical mL (15 mL) 07 mouth Center solution every 6 (six) hours as needed (constipat ion). escitalopra 2022-0 Yes 10mg QD Take [address] [facility] oxalate 5-11 tablet (10 [facility] (LEXAPRO) 14:05: mg total) Med ical 10 MG 07 by mouth Center tablet in the morning. FERROUS 3-0 Yes 5mg Take 5 mg [facility] SULFATE 5-11 by mouth [facility] ORAL 14:05: every 12 Medical 07 (twelve) Center hours Ferrous sulfate 5mg/20ml. Give 5ml every 12 hours. tamsulosin 2022-0 Yes .4mg QD Take 1 [facility] (FLOMAX) 5-11 capsule [facility] 0.4 mg Cap 14:05: (0.4 mg Medi michelle 24 hr 07 total) by Center capsule mouth nightly. hydrOXYzine 3-0 Yes 10mg Take [address] [facility] [address] (ATARAX) 10 5-11 tablet (10 [facility] MG tablet 14:05: mg total) Med ical 07 by mouth Center every 8 (eight) hours as needed for Itching (pruritus) . insulin 3-0 Yes 29U Inject 29 [facility] glargine 5-11 [facility] (LANTUS, 14:05: subcutaneo Med ical SEMGLEE) 07 usly every Cente r 100 unit/mL 12 injection (twelve) hours Use as directed. insulin 3-[address] [facility] lispro 5-11 subcutaneo [facility] (HumaLOG) 14:05: usly every Me dical 100 unit/mL 07 6 (six) Cente r injection hours Per sliding scale. levothyroxi 2022-0 Yes 25ug Take [address] [facility] ne 5-11 tablet (25 [facility] (SYNTHROID, 14:05: mcg total) Medical LEVOTHROID) 07 by mouth Cent er 25 MCG Every tablet morning on an empty stomach. omeprazole 3-0 Yes 10mg QD Take 1 [facility] (PriLOSEC) 5-11 capsule [facility] 10 MG 14:05: (10 mg Medical capsule 07 total) by Center mouth in the morning. ondansetron 2022-0 Yes 4mg Take [address] [facility] [address] (ZOFRAN) 4 5-11 tablet (4 [facility] MG tablet 14:05: mg total) Med ical 07 by mouth Center every 6 (six) hours as needed for Nausea. acetaminoph 2022-0 Yes 650mg Take [address] [facility] 5-11 tablets [facility] (TYLENOL) 14:05: (650 mg Medic al 325 MG 07 total) by Center tablet mouth every 4 (four) hours as needed for Pain. acetylcyste 2022-0 Yes 1mL Take [address] ine 5-11 by [facility] (MUCOMYST) 14:05: nebulizati M edical 100 mg/mL 07 on every Center (10 %) 10% 12 nebulizer (twelve) solution hours. amLODIPine 3-0 Yes 10mg QD Take 1 [facility] (NORVASC) 5-11 tablet (10 [facility] 10 MG 14:05: mg total) Medical tablet 07 by mouth Center nightly Hold sbp<110, dbp<60, HR <60. aspirin 81 3-0 Yes 81mg QD Take 1 [facility] chewable 5-11 tablet (81 [facility] tablet 14:05: mg total) Medica l 07 by mouth Center in the morning. budesonide 3-0 Yes .5mg Take [address] (PULMICORT) 5-11 (0.5 mg [facility] 0.5 mg/2 mL 14:05: total) by M edical nebulizer [address] er solution on every 12 (twelve) hours. lactulose 3-0 Yes 20g Take 30 [facility] (CHRONULAC) 5-11 mLs (20 g [facility] 10 gram/15 14:05: total) by Ms dical mL (15 mL) 07 mouth Center solution every 6 (six) hours as needed (constipat ion). escitalopra 2023-0 Yes 10mg QD Take [address] [facility] oxalate 5-11 tablet (10 [facility] (LEXAPRO) 14:05: mg total) Med ical 10 MG 07 by mouth Center tablet in the morning. FERROUS 2023-0 Yes 5mg Take 5 mg [facility] SULFATE 5-11 by mouth [facility] ORAL 14:05: every 12 Medical 07 (twelve) Center hours Ferrous sulfate 5mg/20ml. Give 5ml every 12 hours. tamsulosin 2023-0 Yes .4mg QD Take 1 [facility] (FLOMAX) 5-11 capsule [facility] 0.4 mg Cap 14:05: (0.4 mg Medi michelle 24 hr 07 total) by Center capsule mouth nightly. hydrOXYzine 2022-0 Yes 10mg Take [address] [facility] (ATARAX) 10 5-11 tablet (10 [facility] MG tablet 14:05: mg total) Med ical 07 by mouth Center every 8 (eight) hours as needed for Itching (pruritus) . insulin 2022-0 Yes 29U Inject 29 [facility] glargine 5-11 [facility] (LANTUS, 14:05: subcutaneo Med ical SEMGLEE) 07 usly every Cente r 100 unit/mL 12 injection (twelve) hours Use as directed. insulin 2022-[address] [facility] lispro 5-11 subcutaneo [facility] (HumaLOG) 14:05: usly every Me dical 100 unit/mL 07 6 (six) Cente r injection hours Per sliding scale. levothyroxi 2022-0 Yes 25ug Take [address] [facility] ne 5-11 tablet (25 [facility] (SYNTHROID, 14:05: mcg total) Medical LEVOTHROID) 07 by mouth Cent er 25 MCG Every tablet morning on an empty stomach. omeprazole 3-0 Yes 10mg QD Take 1 [facility] (PriLOSEC) 5-11 capsule [facility] 10 MG 14:05: (10 mg Medical capsule 07 total) by Center mouth in the morning. ondansetron 2023-0 Yes 4mg Take [address] [facility] (ZOFRAN) 4 5-11 tablet (4 [facility] MG tablet 14:05: mg total) Med ical 07 by mouth Center every 6 (six) hours as needed for Nausea. acetaminoph 2023-0 Yes 650mg Take [address] [facility] 5-11 tablets [facility] (TYLENOL) 14:05: (650 mg Medic al 325 MG 07 total) by Center tablet mouth every 4 (four) hours as needed for Pain. acetylcyste 2023-0 Yes 1mL Take [address] ine 5-11 by [facility] (MUCOMYST) 14:05: nebulizati M edical 100 mg/mL 07 on every Center (10 %) 10% 12 nebulizer (twelve) solution hours. amLODIPine 2023-0 Yes 10mg QD Take 1 [facility] (NORVASC) 5-11 tablet (10 [facility] 10 MG 14:05: mg total) Medical tablet 07 by mouth Center nightly Hold sbp<110, dbp<60, HR <60. aspirin 81 2023-0 Yes 81mg QD Take 1 [facility] chewable 5-11 tablet (81 [facility] tablet 14:05: mg total) Medica l 07 by mouth Center in the morning. budesonide 2023-0 Yes .5mg Take [address] (PULMICORT) 5-11 (0.5 mg [facility] 0.5 mg/2 mL 14:05: total) by M edical nebulizer [address] er solution on every 12 (twelve) hours. lactulose 2023-0 Yes 20g Take 30 [facility] (CHRONULAC) 5-11 mLs (20 g [facility] 10 gram/15 14:05: total) by Ms dical mL (15 mL) 07 mouth Center solution every 6 (six) hours as needed (constipat ion). escitalopra 2023-0 Yes 10mg QD Take [address] [facility] oxalate 5-11 tablet (10 [facility] (LEXAPRO) 14:05: mg total) Med ical 10 MG 07 by mouth Center tablet in the morning. FERROUS 2023-0 Yes 5mg Take 5 mg [facility] SULFATE 5-11 by mouth [facility] ORAL 14:05: every 12 Medical 07 (twelve) Center hours Ferrous sulfate 5mg/20ml. Give 5ml every 12 hours. tamsulosin 2023-0 Yes .4mg QD Take 1 [facility] (FLOMAX) 5-11 capsule [facility] 0.4 mg Cap 14:05: (0.4 mg Medi michelle 24 hr 07 total) by Center capsule mouth nightly. hydrOXYzine 2023-0 Yes 10mg Take [address] [facility] (ATARAX) 10 5-11 tablet (10 [facility] MG tablet 14:05: mg total) Med ical 07 by mouth Center every 8 (eight) hours as needed for Itching (pruritus) . insulin 2022-0 Yes 29U Inject 29 [facility] glargine 5-11 [facility] (LANTUS, 14:05: subcutaneo Med ical SEMGLEE) 07 usly every Cente r 100 unit/mL 12 injection (twelve) hours Use as directed. insulin 2022-[address] [facility] lispro 5-11 subcutaneo [facility] (HumaLOG) 14:05: usly every Me dical 100 unit/mL 07 6 (six) Cente r injection hours Per sliding scale. levothyroxi 2022-0 Yes 25ug Take [address] [facility] ne 5-11 tablet (25 [facility] (SYNTHROID, 14:05: mcg total) Medical LEVOTHROID) 07 by mouth Cent er 25 MCG Every tablet morning on an empty stomach. omeprazole 3-0 Yes 10mg QD Take 1 [facility] (PriLOSEC) 5-11 capsule [facility] 10 MG 14:05: (10 mg Medical capsule 07 total) by Center mouth in the morning. ondansetron 3-0 Yes 4mg Take [address] [facility] (ZOFRAN) 4 5-11 tablet (4 [facility] MG tablet 14:05: mg total) Med ical 07 by mouth Center every 6 (six) hours as needed for Nausea. acetaminoph 2023-0 Yes 650mg Take [address] [facility] 5-11 tablets [facility] (TYLENOL) 14:05: (650 mg Medic al 325 MG 07 total) by Center tablet mouth every 4 (four) hours as needed for Pain. acetylcyste 3-0 Yes 1mL Take [address] ine 5-11 by [facility] (MUCOMYST) 14:05: nebulizati M edical 100 mg/mL 07 on every Center (10 %) 10% 12 nebulizer (twelve) solution hours. amLODIPine 3-0 Yes 10mg QD Take 1 [facility] (NORVASC) 5-11 tablet (10 [facility] 10 MG 14:05: mg total) Medical tablet 07 by mouth Center nightly Hold sbp<110, dbp<60, HR <60. aspirin 81 2023-0 Yes 81mg QD Take 1 [facility] chewable 5-11 tablet (81 [facility] tablet 14:05: mg total) Medica l 07 by mouth Center in the morning. budesonide 2023-0 Yes .5mg Take [address] (PULMICORT) 5-11 (0.5 mg [facility] 0.5 mg/2 mL 14:05: total) by edical nebulizer [address] er solution on every 12 (twelve) hours. lactulose 3-0 Yes 20g Take 30 [facility] (CHRONULAC) 5-11 mLs (20 g Joyce es 10 gram/15 14:05: total) by Ms dical mL (15 mL) 07 mouth Center solution every 6 (six) hours as needed (constipat ion). escitalopra 2023-0 Yes 10mg QD Take [address] [facility] oxalate 5-11 tablet (10 [facility] (LEXAPRO) 14:05: mg total) Med ical 10 MG 07 by mouth Center tablet in the morning. FERROUS 2023-0 Yes 5mg Take 5 mg [facility] SULFATE [facility]-11 [facility] ORAL 14:05: every 12 [facility] 07 (twelve) Center hours Ferrous sulfate 5mg/20ml. Give 5ml every 12 hours. tamsulosin 2023-0 Yes .4mg QD Take 1 [facility] (FLOMAX) 5-11 capsule [facility] 0.4 mg Cap 14:05: (0.4 mg Medi michelle 24 hr 07 total) by Center capsule mouth nightly. hydrOXYzine 2023-0 Yes 10mg Take [address] [facility] (ATARAX) 10 5-11 tablet (10 Eva kes MG tablet 14:05: mg total) Med ical 07 by mouth Center every 8 (eight) hours as needed for Itching (pruritus) . insulin 2023-0 Yes 29U [facility]ject [facility] (LANTUS, 14:05: subcutaneo Med ical SEMGLEE) 07 usly every Cente r 100 unit/mL 12 injection (twelve) hours Use as directed. insulin 2023-[address] [facility] lispro 5-11 [facility]o [facility] (HumaLOG) 14:05: usly every Me dical 100 unit/mL 07 6 (six) Cente r injection hours Per sliding scale. levothyroxi 2022-0 Yes 25ug Take [address] [facility] ne 5-11 tablet (25 [facility] (SYNTHROID, 14:05: mcg total) Medical LEVOTHROID) 07 by mouth Cent er 25 MCG Every tablet morning on an empty stomach. omeprazole 2022-0 Yes 10mg QD Take 1 [facility] (PriLOSEC) [facility]-11 capsule [facility] 10 MG 14:05: (10 mg Medical capsule 07 total) by Center mouth in the morning. ondansetron 2022-0 Yes 4mg Take [address] [facility] (ZOFRAN) 4 5-11 tablet (4 [facility] tablet 14:05: mg total) Med ical 07 by mouth Center every 6 (six) hours as needed for Nausea. acetaminoph 2022-0 Yes 650mg Take [address] [facility] en 5-11 tablets [facility] (TYLENOL) 14:05: (650 mg Medic al 325 MG 07 total) by Center tablet mouth every 4 (four) hours as needed for Pain. acetylcyste 2022-0 Yes 1mL Take [address] [facility] [address] [facility] ine 5-11 by [facility] (MUCOMYST) 14:05: nebulizati M edical 100 mg/mL 07 on every Center (10 %) 10% 12 nebulizer (twelve) solution hours. amLODIPine 2022-0 Yes 10mg QD Take 1 [facility] (NORVASC) 5-11 tablet (10 [facility] 10 MG 14:05: mg total) Medical tablet 07 by mouth Center nightly Hold sbp<110, dbp<60, HR <60. aspirin 81 2022-0 Yes 81mg QD Take 1 [facility] chewable 5-11 tablet (81 [facility] tablet 14:05: mg total) Medica l 07 by mouth Center in the morning. budesonide 2022-0 Yes .5mg Take [address] [facility] (PULMICORT) 5-11 (0.5 mg [facility] 0[facility] mg/2 mL 14:05: total) by M edical nebulizer [address]bul[address] [facility] er solution on every 12 (twelve) hours. lactulose 2022-0 Yes 20g Take 30 [facility] (CHRONULAC) 5-11 mLs (20 g [facility] 10 gram/15 14:05: total) by Me dical mL (15 mL) 07 mouth Center solution every 6 (six) hours as needed (constipat ion). escitalopra 202-0 Yes 10mg QD Take [address] [facility] m oxalate 5-11 tablet (10 [facility] (LEXAPRO) 14:05: mg total) Med ical 10 MG 07 by mouth Center tablet in the morning. FERROUS 2023-0 Yes 5mg Take 5 mg [facility] SULFATE [facility]-11 [facility] ORAL 14:05: every 12 Medical 07 (twelve) Center hours Ferrous sulfate 5mg/20ml. Give 5ml every 12 hours. tamsulosin 2022-0 Yes .4mg QD Take 1 [facility] (FLOMAX) 5-11 [facility] 0.4 mg Cap 14:05: (0.4 mg Medi michelle 24 hr 07 total) by Center capsule mouth nightly. hydrOXYzine 2022-0 Yes 10mg Take [address] [facility] (ATARAX) 10 5-11 tablet (10 [facility] MG tablet 14:05: mg total) Med ical 07 by mouth Center every 8 (eight) hours as needed for Itching (pruritus) . insulin 2022-0 Yes 29U Inject 29 [facility] glargine [facility] (LANTUS, 14:05: subcutaneo Med ical SEMGLEE) 07 usly every Cente r 100 unit/mL 12 injection (twelve) hours Use as directed. insulin 2022-[address] [facility] lispro 5-11 [facility]o [facility] (HumaLOG) 14:05: usly every Me dical 100 unit/mL 07 6 (six) Cente r injection hours Per sliding scale. levothyroxi 2022-0 Yes 25ug Take [address] [facility] ne 5-11 tablet (25 [facility] (SYNTHROID, 14:05: mcg total) Medical LEVOTHROID) 07 by mouth Cent er 25 MCG Every tablet morning on an empty stomach. omeprazole 3-0 Yes 10mg QD Take 1 [facility] (PriLOSEC) 5-11 [facility] 10 MG 14:05: (10 mg Medical capsule 07 total) by Center mouth in the morning. ondansetron 3-0 Yes 4mg Take [address] [facility] (ZOFRAN) 4 5-11 tablet (4 [facility] MG tablet 14:05: mg total) Med ical 07 by mouth Center every 6 (six) hours as needed for Nausea. acetaminoph 2023-0 Yes 650mg Take [address] [facility] en 5-11 tablets [facility] (TYLENOL) 14:05: (650 mg Medic al 325 MG 07 total) by Center tablet mouth every 4 (four) hours as needed for Pain. acetylcyste 2022-0 Yes 1mL Take [address] [facility] ine 5-11 by [facility] (MUCOMYST) 14:05: nebulizati M edical 100 mg/mL 07 on every Center (10 %) 10% 12 nebulizer (twelve) solution hours. amLODIPine 3-0 Yes 10mg QD Take 1 [facility] (NORVASC) 5-11 tablet (10 [facility] 10 MG 14:05: mg total) Medical tablet 07 by mouth Center nightly Hold sbp<110, dbp<60, HR <60. aspirin 81 2022-0 Yes 81mg QD Take 1 [facility] chewable 5-11 tablet (81 [facility] tablet 14:05: mg total) Medica l 07 by mouth Center in the morning. budesonide 3-0 Yes .5mg Take [address] [facility] (PULMICORT) 5-11 (0.5 mg [facility] 0[facility] mg/2 mL 14:05: total) by M edical nebulizer [address] er solution on every 12 (twelve) hours. lactulose 2022-0 Yes 20g Take 30 [facility] (CHRONULAC) 5-11 mLs (20 g [facility] 10 gram/15 14:05: total) by Ms dical mL (15 mL) 07 mouth Center solution every 6 (six) hours as needed (constipat ion). escitalopra 3-0 Yes 10mg QD Take [address] [facility] oxalate 5-11 tablet (10 [facility] (LEXAPRO) 14:05: mg total) Med ical 10 MG 07 by mouth Center tablet in the morning. FERROUS 2023-0 Yes 5mg Take 5 mg [facility] SULFATE 5-11 [facility] ORAL 14:05: every 12 Medical 07 (twelve) Center hours Ferrous sulfate 5mg/20ml. Give 5ml every 12 hours. tamsulosin 2022-0 Yes .4mg QD Take 1 [facility] (FLOMAX) 5-11 capsule [facility] 0.4 mg Cap 14:05: (0.4 mg Medi michelle 24 hr 07 total) by Center capsule mouth nightly. hydrOXYzine 2022-0 Yes 10mg Take [address] [facility] (ATARAX) 10 5-11 tablet (10 [facility] MG tablet 14:05: mg total) Med ical 07 by mouth Center every 8 (eight) hours as needed for Itching (pruritus) . insulin 2022-0 Yes 29U Inject 29 [facility] gl[facility]ine [facility] (LANTUS, 14:05: subcutaneo Med ical SEMGLEE) 07 usly every Cente r 100 unit/mL 12 injection (twelve) hours Use as directed. insulin 2022-[address] [facility] lispro 5-11 [facility]o [facility] (HumaLOG) 14:05: usly every Me dical 100 unit/mL 07 6 (six) Cente r injection hours Per sliding scale. levothyroxi 2022-0 Yes 25ug Take [address] [facility] ne 5-11 tablet (25 [facility] (SYNTHROID, 14:05: mcg total) Medical LEVOTHROID) 07 by mouth Cent er 25 MCG Every tablet morning on an empty stomach. omeprazole 2022-0 Yes 10mg QD Take 1 [facility] (PriLOSEC) 5-11 [facility] 10 MG 14:05: (10 mg Medical capsule 07 total) by Center mouth in the morning. ondansetron 2022-0 Yes 4mg Take [address] [facility] (ZOFRAN) 4 5-11 tablet (4 [facility] MG tablet 14:05: mg total) Med ical 07 by mouth Center every 6 (six) hours as needed for Nausea. acetaminoph 2023-0 Yes 650mg Take [address] [facility] en 5-11 tablets [facility] (TYLENOL) 14:05: (650 mg Medic al 325 MG 07 total) by Center tablet mouth every 4 (four) hours as needed for Pain. acetylcyste 3-0 Yes 1mL Take [address] [facility] ine 5-11 by [facility] (MUCOMYST) 14:05: nebulizati M edical 100 mg/mL 07 on every Center (10 %) 10% 12 nebulizer (twelve) solution hours. amLODIPine 2023-0 Yes 10mg QD Take 1 [facility] (NORVASC) 5-11 tablet (10 [facility] 10 MG 14:05: mg total) Medical tablet 07 by mouth Center nightly Hold sbp<110, dbp<60, HR <60. aspirin 81 2023-0 Yes 81mg QD Take 1 [facility] chewable 5-11 tablet (81 [facility] tablet 14:05: mg total) Medica l 07 by mouth Center in the morning. budesonide 2023-0 Yes .5mg Take [address] [facility] (PULMICORT) 5-11 (0.5 mg [facility] 0.[facility] mg/2 mL 14:05: total) by M edical nebulizer [address]bul[address] [facility] er solution on every 12 (twelve) hours. lactulose 2023-0 Yes 20g Take 30 [facility] (CHRONULAC) 5-11 mLs (20 g [facility] 10 gram/15 14:05: total) by Ms dical mL (15 mL) 07 mouth Center solution every 6 (six) hours as needed (constipat ion). escitalopra 2023-0 Yes 10mg QD Take [address] [facility] oxalate 5-11 tablet (10 [facility] (LEXAPRO) 14:05: mg total) Med ical 10 MG 07 by mouth Center tablet in the morning. FERROUS 2023-0 Yes 5mg Take 5 mg [facility] SULFATE 5-11 [facility] ORAL 14:05: every 12 Medical 07 (twelve) Center hours Ferrous sulfate 5mg/20ml. Give 5ml every 12 hours. tamsulosin 2023-0 Yes .4mg QD Take 1 [facility] (FLOMAX) 5-11 capsule [facility] 0.4 mg Cap 14:05: (0.4 mg Medi michelle 24 hr 07 total) by Center capsule mouth nightly. hydrOXYzine 2023-0 Yes 10mg Take [address] [facility] (ATARAX) 10 5-11 tablet (10 [facility] MG tablet 14:05: mg total) Med ical 07 by mouth Center every 8 (eight) hours as needed for Itching (pruritus) . insulin 2023-0 Yes 29U Inject 29 [facility] glargine [facility] (LANTUS, 14:05: subcutaneo Med ical SEMGLEE) 07 usly every Cente r 100 unit/mL 12 injection (twelve) hours Use as directed. insulin 2022-[address] [facility] lispro 5-11 [facility]o [facility] (HumaLOG) 14:05: usly every Me dical 100 unit/mL 07 6 (six) Cente r injection hours Per sliding scale. levothyroxi 2022-0 Yes 25ug Take [address] [facility] ne 5-11 tablet (25 [facility] (SYNTHROID, 14:05: mcg total) Medical LEVOTHROID) 07 by mouth Cent er 25 MCG Every tablet morning on an empty stomach. omeprazole 2022-0 Yes 10mg QD Take 1 [facility] (PriLOSEC) 5-11 [facility] 10 MG 14:05: (10 mg Medical capsule 07 total) by Center mouth in the morning. ondansetron 2022-0 Yes 4mg Take [address] [facility] (ZOFRAN) 4 5-11 tablet (4 [facility] MG tablet 14:05: mg total) Med ical 07 by mouth Center every 6 (six) hours as needed for Nausea. acetaminoph 2022-0 Yes 650mg Take [address] [facility] en 5-11 tablets [facility] (TYLENOL) 14:05: (650 mg Medic al 325 MG 07 total) by Center tablet mouth every 4 (four) hours as needed for Pain. acetylcyste 2022-0 Yes 1mL Take [address] [facility] ine 5-11 by [facility] (MUCOMYST) 14:05: nebulizati M edical 100 mg/mL 07 on every Center (10 %) 10% 12 nebulizer (twelve) solution hours. amLODIPine 2022-0 Yes 10mg QD Take 1 [facility] (NORVASC) 5-11 tablet (10 [facility] 10 MG 14:05: mg total) Medical tablet 07 by mouth Center nightly Hold sbp<110, dbp<60, HR <60. aspirin 81 3-0 Yes 81mg QD Take 1 [facility] chewable 5-11 tablet (81 [facility] tablet 14:05: mg total) Medica l 07 by mouth Center in the morning. budesonide 2022-0 Yes .5mg Take [address] [facility] (PULMICORT) 5-11 (0.5 mg [facility] 0.[facility] mg/2 mL 14:05: total) by edical nebulizer [address] [facility] er solution on every 12 (twelve) hours. lactulose 2022-0 Yes 20g Take 30 [facility] (CHRONULAC) 5-11 mLs (20 g [facility] 10 gram/15 14:05: total) by Ms dical mL (15 mL) 07 mouth Center solution every 6 (six) hours as needed (constipat ion). escitalopra 2022-0 Yes 10mg QD Take [address] [facility] oxalate 5-11 tablet (10 [facility] (LEXAPRO) 14:05: mg total) Med ical 10 MG 07 by mouth Center tablet in the morning. FERROUS 2022-0 Yes 5mg Take 5 mg [facility] SULFATE 5-11 [facility] OR[facility] 14:05: every 12 Medical 07 (twelve) Center hours Ferrous sulfate 5mg/20ml. Give 5ml every 12 hours. tamsulosin 2022-0 Yes .4mg QD Take 1 [facility] (FLOMAX) 5-11 capsule [facility] 0.4 mg Cap 14:05: (0.4 mg Medi michelle 24 hr 07 total) by Center capsule mouth nightly. hydrOXYzine 2022-0 Yes 10mg Take [address] [facility] (ATARAX) 10 5-11 tablet (10 [facility] MG tablet 14:05: mg total) Med ical 07 by mouth Center every 8 (eight) hours as needed for Itching (pruritus) . insulin 2022-0 Yes 29U Inject 29 [facility] glargine 5-[facility] (LANTUS, 14:05: subcutaneo Med ical SEMGLEE) 07 usly every Cente r 100 unit/mL 12 injection (twelve) hours Use as directed. insulin 2022-[address] [facility] lispro 5-11 [facility]o [facility] (HumaLOG) 14:05: usly every Me dical 100 unit/mL 07 6 (six) Cente r injection hours Per sliding scale. levothyroxi 2022-0 Yes 25ug Take [address] [facility] ne 5-11 tablet (25 [facility] (SYNTHROID, 14:05: mcg total) Medical LEVOTHROID) 07 by mouth Cent er 25 MCG Every tablet morning on an empty stomach. omeprazole 2023-0 Yes 10mg QD Take 1 [facility] (PriLOSEC) 5-11 [facility] 10 MG 14:05: (10 mg Medical capsule 07 total) by Center mouth in the morning. ondansetron 3-0 Yes 4mg Take [address] [facility] (ZOFRAN) 4 5-11 tablet (4 [facility] MG tablet 14:05: mg total) Med ical 07 by mouth Center every 6 (six) hours as needed for Nausea. acetaminoph 2022-0 Yes 650mg Take [address] [facility] en 5-11 tablets [facility] (TYLENOL) 14:05: (650 mg Medic al 325 MG 07 total) by Center tablet mouth every 4 (four) hours as needed for Pain. acetylcyste 2022-0 Yes 1mL Take [address] ine 5-11 by [facility] (MUCOMYST) 14:05: nebulizati M edical 100 mg/mL 07 on every Center (10 %) 10% 12 nebulizer (twelve) solution hours. amLODIPine 3-0 Yes 10mg QD Take 1 [facility] (NORVASC) 5-11 tablet (10 [facility] 10 MG 14:05: mg total) Medical tablet 07 by mouth Center nightly Hold sbp<110, dbp<60, HR <60. aspirin 81 2022-0 Yes 81mg QD Take 1 [facility] chewable 5-11 tablet (81 [facility] tablet 14:05: mg total) Medica l 07 by mouth Center in the morning. budesonide 2022-0 Yes .5mg Take [address] [facility] (PULMICORT) 5-11 (0.5 mg [facility] 0.[facility] mg/2 mL 14:05: total) by M edical nebulizer [address] er solution on every 12 (twelve) hours. lactulose 3-0 Yes 20g Take 30 [facility] (CHRONULAC) 5-11 mLs (20 g [facility] 10 gram/15 14:05: total) by Ms dical mL (15 mL) 07 mouth Center solution every 6 (six) hours as needed (constipat ion). escitalopra 3-0 Yes 10mg QD Take [address] [facility] oxalate 5-11 tablet (10 [facility] (LEXAPRO) 14:05: mg total) Med ical 10 MG 07 by mouth Center tablet in the morning. FERROUS 2023-0 Yes 5mg Take 5 mg [facility] SULFATE 5-11 [facility] 14:05: every 12 Medical 07 (twelve) Center hours Ferrous sulfate 5mg/20ml. Give 5ml every 12 hours. tamsulosin 3-0 Yes .4mg QD Take 1 [facility] (FLOMAX) 5-11 capsule [facility] 0.4 mg Cap 14:05: (0.4 mg Medi michelle 24 hr 07 total) by Center capsule mouth nightly. hydrOXYzine 2022-0 Yes 10mg Take [address] [facility] (ATARAX) 10 5-11 tablet (10 [facility] MG tablet 14:05: mg total) Med ical 07 by mouth Center every 8 (eight) hours as needed for Itching (pruritus) . insulin 2022-0 Yes 29U Inject 29 [facility] glargine 5-[facility] (LANTUS, 14:05: subcutaneo Med ical SEMGLEE) 07 usly every Cente r 100 unit/mL 12 injection (twelve) hours Use as directed. insulin 2022-[address] [facility] lispro 5-11 [facility]o [facility] (HumaLOG) 14:05: usly every Me dical 100 unit/mL 07 6 (six) Cente r injection hours Per sliding scale. levothyroxi 2022-0 Yes 25ug Take [address] [facility] ne 5-11 tablet (25 [facility] (SYNTHROID, 14:05: mcg total) Medical LEVOTHROID) 07 by mouth Cent er 25 MCG Every tablet morning on an empty stomach. omeprazole 2022-0 Yes 10mg QD Take 1 [facility] (PriLOSEC) 5-11 [facility] 10 MG 14:05: (10 mg Medical capsule 07 total) by Center mouth in the morning. ondansetron 3-0 Yes 4mg Take [address] [facility] (ZOFRAN) 4 5-11 tablet (4 [facility] MG tablet 14:05: mg total) Med ical 07 by mouth Center every 6 (six) hours as needed for Nausea. acetaminoph 2023-0 Yes 650mg Take [address] [facility] en 5-11 tablets [facility] (TYLENOL) 14:05: (650 mg Medic al 325 MG 07 total) by Center tablet mouth every 4 (four) hours as needed for Pain. acetylcyste 2023-0 Yes 1mL Take [address] ine 5-11 by [facility] (MUCOMYST) 14:05: nebulizati M edical 100 mg/mL 07 on every Center (10 %) 10% 12 nebulizer (twelve) solution hours. amLODIPine 2023-0 Yes 10mg QD Take 1 [facility] (NORVASC) 5-11 tablet (10 [facility] 10 MG 14:05: mg total) Medical tablet 07 by mouth Center nightly Hold sbp<110, dbp<60, HR <60. aspirin 81 2023-0 Yes 81mg QD Take 1 [facility] chewable 5-11 tablet (81 [facility] tablet 14:05: mg total) Medica l 07 by mouth Center in the morning. budesonide 2023-0 Yes .5mg Take [address] [facility] (PULMICORT) 5-11 (0.5 mg [facility] 0.[facility] mg/2 mL 14:05: total) by M edical nebulizer [address] er solution on every 12 (twelve) hours. lactulose 2023-0 Yes 20g Take 30 [facility] (CHRONULAC) 5-11 mLs (20 g [facility] 10 gram/15 14:05: total) by Ms dical mL (15 mL) 07 mouth Center solution every 6 (six) hours as needed (constipat ion). escitalopra 2023-0 Yes 10mg QD Take [address] [facility] oxalate 5-11 tablet (10 [facility] (LEXAPRO) 14:05: mg total) Med ical 10 MG 07 by mouth Center tablet in the morning. FERROUS 2023-0 Yes 5mg Take 5 mg [facility] SULFATE 5-11 [facility] 14:05: every 12 Medical 07 (twelve) Center hours Ferrous sulfate 5mg/20ml. Give 5ml every 12 hours. tamsulosin 2023-0 Yes .4mg QD Take 1 [facility] (FLOMAX) 5-11 capsule [facility] 0.4 mg Cap 14:05: (0.4 mg Medi michelle 24 hr 07 total) by Center capsule mouth nightly. hydrOXYzine 2023-0 Yes 10mg Take [address] [facility] (ATARAX) 10 5-11 tablet (10 [facility] MG tablet 14:05: mg total) Med ical 07 by mouth Center every 8 (eight) hours as needed for Itching (pruritus) . insulin 2022-0 Yes 29U Inject 29 [facility] glargine 5-[facility] (LANTUS, 14:05: subcutaneo Med ical SEMGLEE) 07 usly every Cente r 100 unit/mL 12 injection (twelve) hours Use as directed. insulin 2022-[address] [facility] lispro 5-11 [facility]o [facility] (HumaLOG) 14:05: usly every Me dical 100 unit/mL 07 6 (six) Cente r injection hours Per sliding scale. levothyroxi 2022-0 Yes 25ug Take [address] [facility] ne 5-11 tablet (25 [facility] (SYNTHROID, 14:05: mcg total) Medical LEVOTHROID) 07 by mouth Cent er 25 MCG Every tablet morning on an empty stomach. omeprazole 2022-0 Yes 10mg QD Take 1 [facility] (PriLOSEC) 5-11 capsule [facility] 10 MG 14:05: (10 mg Medical capsule 07 total) by Center mouth in the morning. ondansetron 2022-0 Yes 4mg Take [address] [facility] (ZOFRAN) 4 5-11 tablet (4 [facility] MG tablet 14:05: mg total) Med ical 07 by mouth Center every 6 (six) hours as needed for Nausea. acetaminoph 2022-0 Yes 650mg Take [address] [facility] en 5-11 tablets [facility] (TYLENOL) 14:05: (650 mg Medic al 325 MG 07 total) by Center tablet mouth every 4 (four) hours as needed for Pain. acetylcyste 2022-0 Yes 1mL Take [address] [facility] ine 5-11 by [facility] (MUCOMYST) 14:05: nebulizati M edical 100 mg/mL 07 on every Center (10 %) 10% 12 nebulizer (twelve) solution hours. amLODIPine 2022-0 Yes 10mg QD Take 1 [facility] (NORVASC) 5-11 tablet (10 [facility] 10 MG 14:05: mg total) Medical tablet 07 by mouth Center nightly Hold sbp<110, dbp<60, HR <60. aspirin 81 3-0 Yes 81mg QD Take 1 [facility] chewable 5-11 tablet (81 [facility] tablet 14:05: mg total) Medica l 07 by mouth Center in the morning. budesonide 3-0 Yes .5mg Take [address] [facility] (PULMICORT) 5-11 (0.5 mg [facility] 0.[facility] mg/2 mL 14:05: total) by edical nebulizer [address] er solution on every 12 (twelve) hours. lactulose 2022-0 Yes 20g Take 30 [facility] (CHRONULAC) 5-11 mLs (20 g [facility] 10 gram/15 14:05: total) by Ms dical mL (15 mL) 07 mouth Center solution every 6 (six) hours as needed (constipat ion). escitalopra 2022-0 Yes 10mg QD Take [address] [facility] oxalate 5-11 tablet (10 [facility] (LEXAPRO) 14:05: mg total) Med ical 10 MG 07 by mouth Center tablet in the morning. FERROUS 2022-0 Yes 5mg Take 5 mg [facility] SULFATE 5-11 [facility] 14:05: every 12 Medical 07 (twelve) Center hours Ferrous sulfate 5mg/20ml. Give 5ml every 12 hours. tamsulosin 2022-0 Yes .4mg QD Take 1 [facility] (FLOMAX) 5-11 capsule [facility] 0.4 mg Cap 14:05: (0.4 mg Medi michelle 24 hr 07 total) by Center capsule mouth nightly. hydrOXYzine 2022-0 Yes 10mg Take [address] [facility] (ATARAX) 10 5-11 tablet (10 [facility] MG tablet 14:05: mg total) Med ical 07 by mouth Center every 8 (eight) hours as needed for Itching (pruritus) . insulin 2022-0 Yes 29U Inject 29 [facility] glargine 5-[facility] (LANTUS, 14:05: subcutaneo Med ical SEMGLEE) 07 usly every Cente r 100 unit/mL 12 injection (twelve) hours Use as directed. insulin 2022-[address] [facility] lispro 5-11 subcutaneo [facility] (HumaLOG) 14:05: usly every Me dical 100 unit/mL 07 6 (six) Cente r injection hours Per sliding scale. levothyroxi 2022-0 Yes 25ug Take [address] [facility] ne 5-11 tablet (25 [facility] (SYNTHROID, 14:05: mcg total) Medical LEVOTHROID) 07 by mouth Cent er 25 MCG Every tablet morning on an empty stomach. omeprazole 2022-0 Yes 10mg QD Take 1 [facility] (PriLOSEC) 5-11 capsule [facility] 10 MG 14:05: (10 mg Medical capsule 07 total) by Center mouth in the morning. ondansetron 2022-0 Yes 4mg Take [address] [facility] (ZOFRAN) 4 -11 tablet (4 [facility] MG tablet 14:05: mg total) Med ical 07 by mouth Center every 6 (six) hours as needed for Nausea. carvedilol 2022-0 2022- No 25mg Take [address] [facility] (COREG) 12-08 05-11 tablets [facility] 12.5 MG 10:09: 00:00 (25 mg Medical tablet 47 :00 total) by Center mouth every 12 (twelve) hours Hold sbp <110, dbp<60, pulse <60. albuterol 2022-2022- No 2.5mg Take 0.[address] [facility] [address] [facility] (PROVENTIL) 12-08 mLs (2.5 [facility] 2.5 mg/0.5 10:09: 00:00 mg total) M edical mL Nebu 47 :00 by Center nebulizer nebulizati solution on every 12 (twelve) hours. cloNIDine 2022-0 2022- No .1mg Take 1 [facility] HCL 12-[facility] (CATAPRES) 10:09: 00:00 (0.1 mg Med ical 0.1 MG 47 :00 total) by Center tablet mouth every 8 (eight) hours as needed (sbp<150, dbp>90). hydrALAZINE 2022-0 2022- No 10mg [id number] Take [address] [facility] (APRESOLINE 12-0811 [id number] tablet (10 [facility] ) 10 MG 10:09: 00:00 3D mg total) Medi michelle tablet 47 :00 by mouth Center in the morning and 1 tablet (10 mg total) at noon and 1 tablet (10 mg total) in the evening. ipratropium 2022-0 2022- No .5mg Take 2.[address] [facility] (ATROVENT) 12-0811 mLs (0.5 [facility] 0.02 % 10:09: 00:00 mg total) Medic al nebulizer 47 :00 by Center solution nebulizati on every 12 (twelve) hours. lidocaine 2022- No 1{patch Place [address] [facility] (LIDODERM) 12-08 } patch onto [facility] 5 % patch 10:09: 00:00 the skin Med ical 47 :00 every 12 Center (twelve) hours Remove & Discard patch within 12 hours or as directed by . nystatin 2022- No [id number] Take [address] [facility] (MYCOSTATIN 12-08 (500,000 [facility] ) 100,000 10:09: 00:00 Units Medica l unit/mL 47 :00 total) by Center suspension mouth every 12 (twelve) hours For redness related to candidiasi s of skin and nail. carvedilol 2022- No 25mg Take [address] [facility] (COREG) 12-08 tablets [facility] 12.5 MG 10:09: 00:00 (25 mg Medical tablet 47 :00 total) by Center mouth every 12 (twelve) hours Hold sbp <110, dbp<60, pulse <60. albuterol 2022- No 2.5mg Take 0.[address] [facility] [address] [facility] (PROVENTIL) 12-08 mLs (2.5 [facility] 2.5 mg/0.5 10:09: 00:00 mg total) M edical mL Nebu 47 :00 by Center nebulizer nebulizati solution on every 12 (twelve) hours. cloNIDine 2022- No .1mg Take 1 [facility] HCL 12-[facility] (CATAPRES) 10:09: 00:00 (0.1 mg Med ical 0.1 MG 47 :00 total) by Center tablet mouth every 8 (eight) hours as needed (sbp<150, dbp>90). hydrALAZINE 2022- No 10mg [id number] Take [address] [facility] (APRESOLINE 12-08 [id number] tablet (10 [facility] ) 10 MG 10:09: 00:00 3D mg total) Medi michelle tablet 47 :00 by mouth Center in the morning and 1 tablet (10 mg total) at noon and 1 tablet (10 mg total) in the evening. ipratropium 2022- No .5mg Take 2.[address] [facility] (ATROVENT) 12-0811 mLs (0.5 [facility] 0.02 % 10:09: 00:00 mg total) Medic al nebulizer 47 :00 by Center solution nebulizati on every 12 (twelve) hours. lidocaine 2022-2022- No 1{patch Place [address] [facility] (LIDODERM) 12-08 } patch onto [facility] 5 % patch 10:09: 00:00 the skin Med ical 47 :00 every 12 Center (twelve) hours Remove & Discard patch within 12 hours or as directed by . nystatin 2022-2022- No [id number] Take [address] [facility] (MYCOSTATIN 12-08 (500,000 [facility] ) 100,000 10:09: 00:00 Units Medica l unit/mL 47 :00 total) by Center suspension mouth every 12 (twelve) hours For redness related to candidiasi s of skin and nail. carvedilol 2022-0 2022- No 25mg Take [address] [facility] (COREG) 12-08 tablets [facility] 12.5 MG 10:09: 00:00 (25 mg Medical tablet 47 :00 total) by Center mouth every 12 (twelve) hours Hold sbp <110, dbp<60, pulse <60. albuterol 2022- No 2.5mg Take 0.[address] [facility] [address] [facility] (PROVENTIL) 12-0811 mLs (2.5 [facility] 2.5 mg/0.5 10:09: 00:00 mg total) M edical mL Nebu 47 :00 by Center nebulizer nebulizati solution on every 12 (twelve) hours. cloNIDine 2022-2022- No .1mg Take 1 [facility] 12[facility] (CATAPRES) 10:09: 00:00 (0.1 mg Med ical 0.1 MG 47 :00 total) by Center tablet mouth every 8 (eight) hours as needed (sbp<150, dbp>90). hydrALAZINE 2022- No 10mg [id number] Take [address] [facility] (APRESOLINE 12-08 [id number] tablet (10 [facility] ) 10 MG 10:09: 00:00 3D mg total) Medi michelle tablet 47 :00 by mouth Center in the morning and 1 tablet (10 mg total) at noon and 1 tablet (10 mg total) in the evening. ipratropium 2022- No .5mg Take 2.[address] [facility] (ATROVENT) 12-08 mLs (0.5 [facility] 0.02 % 10:09: 00:00 mg total) Medic al nebulizer 47 :00 by Center solution nebulizati on every 12 (twelve) hours. lidocaine 2022- No 1{patch Place [address] [facility] (LIDODERM) 12-08 } patch onto Eva kes 5 % patch 10:09: 00:00 the skin Med ical 47 :00 every 12 Center (twelve) hours Remove & Discard patch within 12 hours or as directed by . nystatin 2022- No [id number] Take [address] [facility] (MYCOSTATIN 12-08 (500,000 Joyce es ) 100,000 10:09: 00:00 Units Medica l unit/mL 47 :00 total) by Center suspension mouth every 12 (twelve) hours For redness related to candidiasi s of skin and nail. carvedilol 2022- No 25mg Take [address] [facility] (COREG) 12-08 tablets [facility] 12.5 MG 10:09: 00:00 (25 mg Medical tablet 47 :00 total) by Center mouth every 12 (twelve) hours Hold sbp <110, dbp<60, pulse <60. albuterol 2022- No 2.5mg Take 0.[address] [facility] (PROVENTIL) 12-0811 mLs (2.5 [facility] 2.5 mg/0.5 10:09: 00:00 mg total) M edical mL Nebu 47 :00 by Center nebulizer nebulizati solution on every 12 (twelve) hours. cloNIDine 2022- No .1mg Take [facility] ([facility]) 10:09: 00:00 (0.1 mg Med ical 0.1 MG 47 :00 total) by Center tablet mouth every 8 (eight) hours as needed (sbp<150, dbp>90). hydrALAZINE 2022- No 10mg [id number] Take [address] [facility] (APRESOLINE 12-08 [id number] tablet (10 [facility] ) 10 MG 10:09: 00:00 3D mg total) Medi michelle tablet 47 :00 by mouth Center in the morning and 1 tablet (10 mg total) at noon and 1 tablet (10 mg total) in the evening. ipratropium 2022- No .5mg Take 2.[address] [facility] (ATROVENT) 12-08 mLs (0.5 [facility] 0.02 % 10:09: 00:00 mg total) Medic al nebulizer 47 :00 by Center solution nebulizati on every 12 (twelve) hours. lidocaine 2022- No 1{patch Place [address] [facility] (LIDODERM) 12-08 } patch onto [facility] 5 % patch 10:09: 00:00 the skin Med ical 47 :00 every 12 Center (twelve) hours Remove & Discard patch within 12 hours or as directed by . nystatin 2022- No [id number] Take [address] [facility] (MYCOSTATIN 12-08 (500,000 [facility] ) 100,000 10:09: 00:00 Units Medica l unit/mL 47 :00 total) by Center suspension mouth every 12 (twelve) hours For redness related to candidiasi s of skin and nail. carvedilol 2022- No 25mg Take [address] [facility] (COREG) 12-08 tablets [facility] 12.5 MG 10:09: 00:00 (25 mg Medical tablet 47 :00 total) by Center mouth every 12 (twelve) hours Hold sbp <110, dbp<60, pulse <60. albuterol 2022- No 2.5mg Take 0.[address] [facility] ([facility]) 12-08 mLs (2.5 [facility] 2.5 mg/0.5 10:09: 00:00 mg total) M edical mL Nebu 47 :00 by Center nebulizer nebulizati solution on every 12 (twelve) hours. cloNIDine 2022- No .1mg Take 1 [facility] ([facility]) 10:09: 00:00 (0.1 mg Med ical 0.1 MG 47 :00 total) by Center tablet mouth every 8 (eight) hours as needed (sbp<150, dbp>90). hydrALAZINE 2022- No 10mg [id number] Take [address] [facility] (APRESOLINE 12-08 [id number] tablet (10 [facility] ) 10 MG 10:09: 00:00 3D mg total) Medi michelle tablet 47 :00 by mouth Center in the morning and 1 tablet (10 mg total) at noon and 1 tablet (10 mg total) in the evening. ipratropium 2022- No .5mg Take 2.[address] [facility] (ATROVENT) 12-08 mLs (0.5 [facility] 0.02 % 10:09: 00:00 mg total) Medic al nebulizer 47 :00 by Center solution nebulizati on every 12 (twelve) hours. lidocaine 2022- No 1{patch Place [address] [facility] (LIDODERM) 12-08 } patch onto [facility] 5 % patch 10:09: 00:00 the skin Med ical 47 :00 every 12 Center (twelve) hours Remove & Discard patch within 12 hours or as directed by . nystatin 2022- No [id number] Take [address] [facility] (MYCOSTATIN 12-08 (500,000 [facility] ) 100,000 10:09: 00:00 Units Medica l unit/mL 47 :00 total) by Center suspension mouth every 12 (twelve) hours For redness related to candidiasi s of skin and nail. carvedilol 2022- No 25mg Take [address] [facility] (COREG) 12-08 [facility] 12.5 MG 10:09: 00:00 (25 mg Medical tablet 47 :00 total) by Center mouth every 12 (twelve) hours Hold sbp <110, dbp<60, pulse <60. albuterol 2022- No 2.5mg Take 0.[address] [facility] [address] [facility] ([facility]) 12-08 mLs (2.5 [facility] 2.5 mg/0.5 10:09: 00:00 mg total) M edical mL Nebu 47 :00 by Center nebulizer nebulizati solution on every 12 (twelve) hours. cloNIDine 2022- No .1mg Take 1 [facility] ([facility]) 10:09: 00:00 (0.1 mg Med ical 0.1 MG 47 :00 total) by Center tablet mouth every 8 (eight) hours as needed (sbp<150, dbp>90). hydrALAZINE 2022- No 10mg Q.[id number] Take [address] [facility] (APRESOLINE 12-08 [id number] tablet (10 [facility] ) 10 MG 10:09: 00:00 3D mg total) Medi michelle tablet 47 :00 by mouth Center in the morning and 1 tablet (10 mg total) at noon and 1 tablet (10 mg total) in the evening. ipratropium 2022- No .5mg Take 2.[address] [facility] (ATROVENT) 12-08 mLs (0.5 [facility] 0.02 % 10:09: 00:00 mg total) Medic al nebulizer 47 :00 by Center solution nebulizati on every 12 (twelve) hours. lidocaine 2022- No 1{patch Place [address] [facility] (LIDODERM) 12-08 } patch onto [facility] 5 % patch 10:09: 00:00 the skin Med ical 47 :00 every 12 Center (twelve) hours Remove & Discard patch within 12 hours or as directed by . nystatin 2022- No [id number] Take [address] [facility] (MYCOSTATIN 12-08 (500,000 [facility] ) 100,000 10:09: 00:00 Units Medica l unit/mL 47 :00 total) by Center suspension mouth every 12 (twelve) hours For redness related to candidiasi s of skin and nail. carvedilol 2022- No 25mg Take [address] [facility] (COREG) 12-08- tablets [facility] 12.5 MG 10:09: 00:00 (25 mg Medical tablet 47 :00 total) by Center mouth every 12 (twelve) hours Hold sbp <110, dbp<60, pulse <60. albuterol 2022- No 2.5mg Take 0.[address] [facility] [address] [facility] ([facility]) 12-08 mLs (2.5 [facility] 2.5 mg/0.5 10:09: 00:00 mg total) M edical mL Nebu 47 :00 by Center nebulizer nebulizati solution on every 12 (twelve) hours. cloNIDine 2022- No .1mg Take 1 [facility] ([facility]) 10:09: 00:00 (0.1 mg Med ical 0.1 MG 47 :00 total) by Center tablet mouth every 8 (eight) hours as needed (sbp<150, dbp>90). hydrALAZINE 2022- No 10mg [id number] Take [address] [facility] (APRESOLINE 12-08 [id number] tablet (10 [facility] ) 10 MG 10:09: 00:00 3D mg total) Medi michelle tablet 47 :00 by mouth Center in the morning and 1 tablet (10 mg total) at noon and 1 tablet (10 mg total) in the evening. ipratropium 2022- No .5mg Take 2.[address] [facility] (ATROVENT) 12-08 mLs (0.5 [facility] 0.02 % 10:09: 00:00 mg total) Medic al nebulizer 47 :00 by Center solution nebulizati on every 12 (twelve) hours. lidocaine 2022- No 1{patch Place [address] [facility] (LIDODERM) 12-08 } patch onto [facility] 5 % patch 10:09: 00:00 the skin Med ical 47 :00 every 12 Center (twelve) hours Remove & Discard patch within 12 hours or as directed by . nystatin 2022- No [id number] Take [address] [facility] (MYCOSTATIN 12-08 (500,000 [facility] ) 100,000 10:09: 00:00 Units Medica l unit/mL 47 :00 total) by Center suspension mouth every 12 (twelve) hours For redness related to candidiasi s of skin and nail. carvedilol 2022- No 25mg Take [address] [facility] (COREG) 12-08 [facility] 12.5 MG 10:09: 00:00 (25 mg Medical tablet 47 :00 total) by Center mouth every 12 (twelve) hours Hold sbp <110, dbp<60, pulse <60. albuterol 2022- No 2.5mg Take 0.[address] [facility] [address] [facility] ([facility]) 12-08 mLs (2.5 [facility] 2.5 mg/0.5 10:09: 00:00 mg total) M edical mL Nebu 47 :00 by Center nebulizer nebulizati solution on every 12 (twelve) hours. cloNIDine 2022- No .1mg Take 1 [facility] ([facility]RES) 10:09: 00:00 (0.1 mg Med ical 0.1 MG 47 :00 total) by Center tablet mouth every 8 (eight) hours as needed (sbp<150, dbp>90). hydrALAZINE 2022- No 10mg Q.[id number] Take [address] [facility] (APRESOLINE 12-08 [id number] tablet (10 [facility] ) 10 MG 10:09: 00:00 3D mg total) Medi michelle tablet 47 :00 by mouth Center in the morning and 1 tablet (10 mg total) at noon and 1 tablet (10 mg total) in the evening. ipratropium 2022- No .5mg Take 2.[address] [facility] (ATROVENT) 12-08 mLs (0.5 [facility] 0.02 % 10:09: 00:00 mg total) Medic al nebulizer 47 :00 by Center solution nebulizati on every 12 (twelve) hours. lidocaine 2022-2022- No 1{patch Place [address] [facility] (LIDODERM) 12-08 } patch onto [facility] 5 % patch 10:09: 00:00 the skin Med ical 47 :00 every 12 Center (twelve) hours Remove & Discard patch within 12 hours or as directed by . nystatin 2022- No [id number] Take [address] [facility] (MYCOSTATIN 12-08 (500,000 [facility] ) 100,000 10:09: 00:00 Units Medica l unit/mL 47 :00 total) by Center suspension mouth every 12 (twelve) hours For redness related to candidiasi s of skin and nail. carvedilol 2022- No 25mg Take [address] [facility] (COREG) 12-08 [facility] 12.5 MG 10:09: 00:00 (25 mg Medical tablet 47 :00 total) by Center mouth every 12 (twelve) hours Hold sbp <110, dbp<60, pulse <60. albuterol 2022- No 2.5mg Take 0.[address] [facility] [address] [facility] ([facility]) 12-08 mLs (2.5 [facility] 2.5 mg/0.5 10:09: 00:00 mg total) M edical mL Nebu 47 :00 by Center nebulizer nebulizati solution on every 12 (twelve) hours. cloNIDine 2022- No .1mg Take 1 [facility] ([facility]) 10:09: 00:00 (0.1 mg Med ical 0.1 MG 47 :00 total) by Center tablet mouth every 8 (eight) hours as needed (sbp<150, dbp>90). hydrALAZINE 2022- No 10mg Q.[id number] Take [address] [facility] (APRESOLINE 12-08 [id number] tablet (10 [facility] ) 10 MG 10:09: 00:00 3D mg total) Medi michelle tablet 47 :00 by mouth Center in the morning and 1 tablet (10 mg total) at noon and 1 tablet (10 mg total) in the evening. ipratropium 2022- No .5mg Take 2.[address] [facility] [address] [facility] (ATROVENT) 12-0811 mLs (0.5 [facility] 0.02 % 10:09: 00:00 mg total) Medic al nebulizer 47 :00 by Center solution nebulizati on every 12 (twelve) hours. lidocaine 2022- No 1{patch Place [address] [facility] (LIDODERM) 12-08 } patch onto [facility] 5 % patch 10:09: 00:00 the skin Med ical 47 :00 every 12 Center (twelve) hours Remove & Discard patch within 12 hours or as directed by . nystatin 2022- No [id number] Take [address] [facility] (MYCOSTATIN 12-08 (500,000 [facility] ) 100,000 10:09: 00:00 Units Medica l unit/mL 47 :00 total) by Center suspension mouth every 12 (twelve) hours For redness related to candidiasi s of skin and nail. carvedilol 2022- No 25mg Take [address] [facility] (COREG) 12-08 [facility] 12.5 MG 10:09: 00:00 (25 mg Medical tablet 47 :00 total) by Center mouth every 12 (twelve) hours Hold sbp <110, dbp<60, pulse <60. albuterol 2022- No 2.5mg Take 0.[address] [facility] [address] [facility] ([facility]) 12-08 mLs (2.5 [facility] 2.5 mg/0.5 10:09: 00:00 mg total) M edical mL Nebu 47 :00 by Center nebulizer nebulizati solution on every 12 (twelve) hours. cloNIDine 2022- No .1mg Take 1 [facility] ([facility]) 10:09: 00:00 (0.1 mg Med ical 0.1 MG 47 :00 total) by Center tablet mouth every 8 (eight) hours as needed (sbp<150, dbp>90). hydrALAZINE 2022- No 10mg Q.[id number] Take [address] [facility] (APRESOLINE 12-08 [id number] tablet (10 [facility] ) 10 MG 10:09: 00:00 3D mg total) Medi michelle tablet 47 :00 by mouth Center in the morning and 1 tablet (10 mg total) at noon and 1 tablet (10 mg total) in the evening. ipratropium 2022- No .5mg Take 2.[address] [facility] (ATROVENT) 12-08-11 mLs (0.5 [facility] 0.02 % 10:09: 00:00 mg total) Medic al nebulizer 47 :00 by Center solution nebulizati on every 12 (twelve) hours. lidocaine 2022- No 1{patch Place [address] [facility] (LIDODERM) 12-08 } patch onto [facility] 5 % patch 10:09: 00:00 the skin Med ical 47 :00 every 12 Center (twelve) hours Remove & Discard patch within 12 hours or as directed by . nystatin 2022- No [id number] Take [address] [facility] (MYCOSTATIN 12-08 (500,000 [facility] ) 100,000 10:09: 00:00 Units Medica l unit/mL 47 :00 total) by Center suspension mouth every 12 (twelve) hours For redness related to candidiasi s of skin and nail. carvedilol 2022- No 25mg Take [address] [facility] (COREG) 12-08 [facility] 12.5 MG 10:09: 00:00 (25 mg Medical tablet 47 :00 total) by Center mouth every 12 (twelve) hours Hold sbp <110, dbp<60, pulse <60. albuterol 2022- No 2.5mg Take 0.[address] [facility] [address] [facility] ([facility]) 12-08-11 mLs (2.5 [facility] 2.5 mg/0.5 10:09: 00:00 mg total) M edical mL Nebu 47 :00 by Center nebulizer nebulizati solution on every 12 (twelve) hours. cloNIDine 2022- No .1mg Take 1 [facility] ([facility]) 10:09: 00:00 (0.1 mg Med ical 0.1 MG 47 :00 total) by Center tablet mouth every 8 (eight) hours as needed (sbp<150, dbp>90). hydrALAZINE 2022- No 10mg Q.[id number] Take [address] [facility] (APRESOLINE 12-08 [id number] tablet (10 [facility] ) 10 MG 10:09: 00:00 3D mg total) Medi michelle tablet 47 :00 by mouth Center in the morning and 1 tablet (10 mg total) at noon and 1 tablet (10 mg total) in the evening. ipratropium 2022- No .5mg Take 2.[address] [facility] (ATR[facility]ENT) 12-08 mLs (0.5 [facility] 0.02 % 10:09: 00:00 mg total) Medic al nebulizer 47 :00 by Center solution nebulizati on every 12 (twelve) hours. lidocaine 2022-2022- No 1{patch Place [address] [facility] (LIDODERM) 12-08 } patch onto [facility] 5 % patch 10:09: 00:00 the skin Med ical 47 :00 every 12 Center (twelve) hours Remove & Discard patch within 12 hours or as directed by . nystatin 2022- No [id number] Take [address] [facility] (MYCOSTATIN 12-08 (500,000 [facility] ) 100,000 10:09: 00:00 Units Medica l unit/mL 47 :00 total) by Center suspension mouth every 12 (twelve) hours For redness related to candidiasi s of skin and nail. carvedilol 2022- No 25mg Take [address] [facility] (COREG) 12-08 [facility] 12.5 MG 10:09: 00:00 (25 mg Medical tablet 47 :00 total) by Center mouth every 12 (twelve) hours Hold sbp <110, dbp<60, pulse <60. albuterol 2022-2022- No 2.5mg Take 0.[address] [facility] [address] [facility] ([facility]) 12-0811 mLs (2.5 [facility] 2.5 mg/0.5 10:09: 00:00 mg total) M edical mL Nebu 47 :00 by Center nebulizer nebulizati solution on every 12 (twelve) hours. cloNIDine 2022- No .1mg Take 1 [facility] ([facility]) 10:09: 00:00 (0.1 mg Med ical 0.1 MG 47 :00 total) by Center tablet mouth every 8 (eight) hours as needed (sbp<150, dbp>90). hydrALAZINE 2022- No 10mg Q.[id number] Take [address] [facility] (APRESOLINE 12-08 [id number] tablet (10 [facility] ) 10 MG 10:09: 00:00 3D mg total) Medi michelle tablet 47 :00 by mouth Center in the morning and 1 tablet (10 mg total) at noon and 1 tablet (10 mg total) in the evening. ipratropium 2022- No .5mg Take 2.[address] [facility] (ATROVENT) 12-08 mLs (0.5 [facility] 0.02 % 10:09: 00:00 mg total) Medic al nebulizer 47 :00 by Center solution nebulizati on every 12 (twelve) hours. lidocaine 2022- No 1{patch Place [address] [facility] (LIDODERM) 12-08 } patch onto [facility] 5 % patch 10:09: 00:00 the skin Med ical 47 :00 every 12 Center (twelve) hours Remove & Discard patch within 12 hours or as directed by MD. nystatin 2022- No [id number] Take [address] [facility] (MYCOSTATIN 12-08 (500,000 [facility] ) 100,000 10:09: 00:00 Units Medica l unit/mL 47 :00 total) by Center suspension mouth every 12 (twelve) hours For redness related to candidiasi s of skin and nail. carvedilol 2022- No 25mg Take [address] [facility] (COREG) 12-0811 [facility] 12.5 MG 10:09: 00:00 (25 mg Medical tablet 47 :00 total) by Center mouth every 12 (twelve) hours Hold sbp <110, dbp<60, pulse <60. albuterol 2022- No 2.5mg Take 0.[address] [facility] [address] [facility] ([facility]) 12-0811 mLs (2.5 [facility] 2.5 mg/0.5 10:09: 00:00 mg total) M edical mL Nebu 47 :00 by Center nebulizer nebulizati solution on every 12 (twelve) hours. cloNIDine 2022- No .1mg Take 1 [facility] ([facility]) 10:09: 00:00 (0.1 mg Med ical 0.1 MG 47 :00 total) by Center tablet mouth every 8 (eight) hours as needed (sbp<150, dbp>90). hydrALAZINE 2022- No 10mg Q.[id number] Take [address] [facility] (APRESOLINE 12-08 [id number] tablet (10 [facility] ) 10 MG 10:09: 00:00 3D mg total) Medi michelle tablet 47 :00 by mouth Center in the morning and 1 tablet (10 mg total) at noon and 1 tablet (10 mg total) in the evening. ipratropium 2022- No .5mg Take 2.[address] [facility] (ATR[facility]ENT) 12-08 mLs (0.5 [facility] 0.02 % 10:09: 00:00 mg total) Medic al nebulizer 47 :00 by Center solution nebulizati on every 12 (twelve) hours. lidocaine 2022- No 1{patch Place [address] [facility] (LIDODERM) 12-08 } patch onto [facility] 5 % patch 10:09: 00:00 the skin Med ical 47 :00 every 12 Center (twelve) hours Remove & Discard patch within 12 hours or as directed by MD. nystatin 2022- No [id number] Take [address] [facility] (MYCOSTATIN 12-08 (500,000 [facility] ) 100,000 10:09: 00:00 Units Medica l unit/mL 47 :00 total) by Center suspension mouth every 12 (twelve) hours For redness related to candidiasi s of skin and nail. carvedilol 2022- No 25mg Take [address] [facility] ([facility]G) 12-08 [facility] 12.5 MG 10:09: 00:00 (25 mg Medical tablet 47 :00 total) by Center mouth every 12 (twelve) hours Hold sbp <110, dbp<60, pulse <60. albuterol 2022- No 2.5mg Take 0.[address] [facility] [address] [facility] ([facility]) 12-08 mLs (2.5 [facility] 2.5 mg/0.5 10:09: 00:00 mg total) M edical mL Nebu 47 :00 by Center nebulizer nebulizati solution on every 12 (twelve) hours. cloNIDine 2022-2022- No .1mg Take 1 [facility] ([facility]) 10:09: 00:00 (0.1 mg Med ical 0.1 MG 47 :00 total) by Center tablet mouth every 8 (eight) hours as needed (sbp<150, dbp>90). hydrALAZINE 2022- No 10mg Q.[id number] Take [address] [facility] (APRESOLINE 12-08 [id number] tablet (10 [facility] ) 10 MG 10:09: 00:00 3D mg total) Medi michelle tablet 47 :00 by mouth Center in the morning and 1 tablet (10 mg total) at noon and 1 tablet (10 mg total) in the evening. ipratropium 2022- No .5mg Take 2.[address] [facility] (ATROVENT) 12-08 mLs (0.5 [facility] 0.02 % 10:09: 00:00 mg total) Medic al nebulizer 47 :00 by Center solution nebulizati on every 12 (twelve) hours. lidocaine 2022- No 1{patch Place [address] [facility] (LIDODERM) 12-08 } patch onto [facility] 5 % patch 10:09: 00:00 the skin Med ical 47 :00 every 12 Center (twelve) hours Remove & Discard patch within 12 hours or as directed by . nystatin 2022- No [id number] Take [address] [facility] (MYCOSTATIN 12-08 (500,000 [facility] ) 100,000 10:09: 00:00 Units Medica l unit/mL 47 :00 total) by Center suspension mouth every 12 (twelve) hours For redness related to candidiasi s of skin and nail. carvedilol 2022- No 25mg Take [address] [facility] (COREG) 12-08 [facility] 12.5 MG 10:09: 00:00 (25 mg Medical tablet 47 :00 total) by Center mouth every 12 (twelve) hours Hold sbp <110, dbp<60, pulse <60. albuterol 2022- No 2.5mg Take 0.[address] [facility] [address] [facility] ([facility]) 12-08 mLs (2.5 [facility] 2.5 mg/0.5 10:09: 00:00 mg total) M edical mL Nebu 47 :00 by Center nebulizer nebulizati solution on every 12 (twelve) hours. cloNIDine 2022- No .1mg Take 1 [facility] ([facility]) 10:09: 00:00 (0.1 mg Med ical 0.1 MG 47 :00 total) by Center tablet mouth every 8 (eight) hours as needed (sbp<150, dbp>90). hydrALAZINE 2022- No 10mg Q.[id number] Take [address] [facility] (APRESOLINE 12-08 [id number] tablet (10 [facility] ) 10 MG 10:09: 00:00 3D mg total) Medi michelle tablet 47 :00 by mouth Center in the morning and 1 tablet (10 mg total) at noon and 1 tablet (10 mg total) in the evening. ipratropium 2022- No .5mg Take 2.[address] [facility] (ATROVENT) 12-08 mLs (0.5 [facility] 0.02 % 10:09: 00:00 mg total) Medic al nebulizer 47 :00 by Center solution nebulizati on every 12 (twelve) hours. lidocaine 2022-2022- No 1{patch Place [address] [facility] (LIDODERM) 12-08 } patch onto [facility] 5 % patch 10:09: 00:00 the skin Med ical 47 :00 every 12 Center (twelve) hours Remove & Discard patch within 12 hours or as directed by . nystatin 2022-2022- No [id number] Take [address] [facility] (MYCOSTATIN 12-08 (500,000 [facility] ) 100,000 10:09: 00:00 Units Medica l unit/mL 47 :00 total) by Center suspension mouth every 12 (twelve) hours For redness related to candidiasi s of skin and nail. carvedilol 2022- No 25mg Take [address] [facility] (COREG) 12-08-11 [facility] 12.5 MG 10:09: 00:00 (25 mg Medical tablet 47 :00 total) by Center mouth every 12 (twelve) hours Hold sbp <110, dbp<60, pulse <60. albuterol 2022- No 2.5mg Take 0.[address] [facility] [address] [facility] ([facility]) 12-08 mLs (2.5 [facility] 2.5 mg/0.5 10:09: 00:00 mg total) M edical mL Nebu 47 :00 by Center nebulizer nebulizati solution on every 12 (twelve) hours. cloNIDine 2022- No .1mg Take 1 [facility] (CAT[facility]RES) 10:09: 00:00 (0.1 mg Med ical 0.1 MG 47 :00 total) by Center tablet mouth every 8 (eight) hours as needed (sbp<150, dbp>90). hydrALAZINE 2022- No 10mg Q.[id number] Take [address] [facility] (APRESOLINE 12-08 [id number] tablet (10 [facility] ) 10 MG 10:09: 00:00 3D mg total) Medi michelle tablet 47 :00 by mouth Center in the morning and 1 tablet (10 mg total) at noon and 1 tablet (10 mg total) in the evening. ipratropium 2022- No .5mg Take 2.[address] [facility] (ATROVENT) 12-08 mLs (0.5 [facility] 0.02 % 10:09: 00:00 mg total) Medic al nebulizer 47 :00 by Center solution nebulizati on every 12 (twelve) hours. lidocaine 2022- No 1{patch Place [address] [facility] (LIDODERM) 12-08 } patch onto [facility] 5 % patch 10:09: 00:00 the skin Med ical 47 :00 every 12 Center (twelve) hours Remove & Discard patch within 12 hours or as directed by . nystatin 3-0 2023- No [id number] Take [address] [facility] (MYCOSTATIN 5-11 05-11 (500,000 [facility] ) 100,000 10:09: 00:00 Units Medica l unit/mL 47 :00 total) by Center suspension mouth every 12 (twelve) hours For redness related to candidiasi s of skin and nail. zinc oxide 2022-[address] [facility] 20 % 5-11 topically [facility] oint[facility] 00:00: as needed. Med ical 00 Center hydrALAZINE 2022-0 Yes 50mg Q.[id number] Take [address] [facility] (APRESOLINE 5-11 [id number] tablet (50 [facility] ) 50 MG 00:00: 3D mg total) Medic al tablet 00 by mouth Center in the morning and 1 tablet (50 mg total) at noon and 1 tablet (50 mg total) in the evening. . carvediloL 2022-0 Yes 25mg Take 1 [facility] ([facility]) 25 5-11 tablet (25 [facility] MG tablet 00:00: mg total) Med ical 00 by mouth 2 Center (two) times daily with breakfast and dinner. ipratropium 2022-0 Yes 3mL Take [address] [facility] -albuteroL 5-11 by [facility] (DUO-NEB) 00:00: nebulizati Me dical 0.5 mg-3 00 on every 6 Cente r mg(2.5 mg (six) base)/3 mL hours. nebulizer solution zinc oxide 2022-[address] [facility] 20 % 5-11 topically [facility] 00:00: as needed. Med ical 00 Center hydrALAZINE 2022-0 Yes 50mg Q.[id number] Take [address] [facility] (APRESOLINE 5-11 [id number] tablet (50 [facility] ) 50 MG 00:00: 3D mg total) Medic al tablet 00 by mouth Center in the morning and 1 tablet (50 mg total) at noon and 1 tablet (50 mg total) in the evening. . carvediloL 3-0 Yes 25mg Take 1 [facility] ([facility]) 25 5-11 tablet (25 [facility] MG tablet 00:00: mg total) Med ical 00 by mouth 2 Center (two) times daily with breakfast and dinner. ipratropium 2023-0 Yes 3mL Take [address] [facility] -albuteroL 5-11 [facility] (DUO-NEB) 00:00: nebulizati Me dical 0.5 mg-3 00 on every 6 Cente r mg(2.5 mg (six) base)/3 mL hours. nebulizer solution zinc oxide 3-[address] [facility] 20 % 5-11 topically [facility] 00:00: as needed. Med ical 00 Center hydrALAZINE 2023-0 Yes 50mg Q.[id number] Take [address] [facility] (APRESOLINE 5-11 [id number] tablet (50 [facility] ) 50 MG 00:00: 3D mg total) Medic al tablet 00 by mouth Center in the morning and 1 tablet (50 mg total) at noon and 1 tablet (50 mg total) in the evening. . carvediloL 2023-0 Yes 25mg Take 1 [facility] ([facility]) 25 5-11 tablet (25 [facility] MG tablet 00:00: mg total) Med ical 00 by mouth 2 Center (two) times daily with breakfast and dinner. ipratropium 2023-0 Yes 3mL Take [address] [facility] -albuteroL 5-11 [facility] (DUO-NEB) 00:00: nebulizati Me dical 0.5 mg-3 00 on every 6 Cente r mg(2.5 mg (six) base)/3 mL hours. nebulizer solution zinc oxide 2022-[address] [facility] 20 % 5-11 topically [facility] 00:00: as needed. Med ical 00 Center hydrALAZINE 2023-0 Yes 50mg Q.[id number] Take [address] [facility] (APRESOLINE 5-11 [id number] tablet (50 [facility] ) 50 MG 00:00: 3D mg total) Medic al tablet 00 by mouth Center in the morning and 1 tablet (50 mg total) at noon and 1 tablet (50 mg total) in the evening. . carvediloL 2023-0 Yes 25mg Take 1 [facility] ([facility]) 25 5-11 tablet (25 [facility] MG tablet 00:00: mg total) Med ical 00 by mouth 2 Center (two) times daily with breakfast and dinner. ipratropium 2023-0 Yes 3mL Take [address] [facility] -albuteroL 5-11 [facility] (DUO-NEB) 00:00: nebulizati Me dical 0.5 mg-3 00 on every 6 Cente r mg(2.5 mg (six) base)/3 mL hours. nebulizer solution zinc oxide 3-[address] [facility] 20 % 5-11 topically [facility]intment 00:00: as needed. Med ical 00 Center hydrALAZINE 2023-0 Yes 50mg [id number] Take [address] [facility] (APRESOLINE 5-11 [id number] tablet (50 [facility] ) 50 MG 00:00: 3D mg total) Medic al tablet 00 by mouth Center in the morning and 1 tablet (50 mg total) at noon and 1 tablet (50 mg total) in the evening. . carvediloL 2023-0 Yes 25mg Take 1 [facility] ([facility] 25 [facility] tablet (25 [facility] tablet 00:00: mg total) Med ical 00 by mouth 2 Center (two) times daily with breakfast and dinner. ipratropium 2023-0 Yes 3mL Take [address] [facility] -albuteroL 5-11 [facility] (DUO-NEB) 00:00: nebulizati Me dical 0.5 mg-3 00 on every 6 Cente r mg(2.5 mg (six) base)/3 mL hours. nebulizer solution zinc oxide 3-[address] [facility] 20 % 5-11 top[facility] ointment 00:00: as needed. Med ical 00 Center hydrALAZINE 3-0 Yes 50mg [id number] Take [address] [facility] (APRESOLINE 5-11 [id number] tablet (50 [facility] ) 50 MG 00:00: 3D mg total) Medic al tablet 00 by mouth Center in the morning and 1 tablet (50 mg total) at noon and 1 tablet (50 mg total) in the evening. . carvediloL 2023-0 Yes 25mg Take 1 [facility] ([facility] tablet (25 [facility] tablet 00:00: mg total) Med ical 00 by mouth 2 Center (two) times daily with breakfast and dinner. ipratropium 2023-0 Yes 3mL Take [address] [facility] -albuteroL 5-11 [facility] (DUO-NEB) 00:00: nebulizati Me dical 0.5 mg-3 00 on every 6 Cente r mg(2.5 mg (six) base)/3 mL hours. nebulizer solution zinc oxide 3-[address] [facility] 20 % 5-11 [facility]intment [facility] as needed. Med ical 00 Center hydrALAZINE 2023-0 Yes 50mg Q.[id number] Take [address] [facility] (APRESOLINE 5-11 [id number] tablet (50 [facility] ) 50 MG 00:00: 3D mg total) Medic al tablet 00 by mouth Center in the morning and 1 tablet (50 mg total) at noon and 1 tablet (50 mg total) in the evening. . carvediloL 2023-0 Yes 25mg Take [facility] (COREG) 25 5-11 tablet (25 [facility] tablet 00:00: mg total) Med ical 00 by mouth 2 Center (two) times daily with breakfast and dinner. ipratropium 2023-0 Yes 3mL Take [address] [facility] -albuteroL 5-11 by [facility] (DUO-NEB) 00:00: nebulizati Me dical 0.5 mg-3 00 on every 6 Cente r mg(2.5 mg (six) base)/3 mL hours. nebulizer solution zinc oxide 3-[address] [facility] % 5-11 [facility]ically [facility] ointment 00:[facility]: as needed. Med ical 00 Center hydrALAZINE 3-0 Yes 50mg Q.[id number] Take [address] [facility] (APRESOLINE 5-11 [id number] tablet (50 [facility] ) 50 MG 00:00: 3D mg total) Medic al tablet 00 by mouth Center in the morning and 1 tablet (50 mg total) at noon and 1 tablet (50 mg total) in the evening. . carvediloL 2023-0 Yes 25mg Take 1 [facility] (COREG) 25 5-11 tablet (25 [facility] tablet 00:00: mg total) Med ical 00 by mouth 2 Center (two) times daily with breakfast and dinner. ipratropium 2023-0 Yes 3mL Take [address] [facility] -albuteroL 5-11 by [facility] (DUO-NEB) 00:00: nebulizati Me dical 0.5 mg-3 00 on every 6 Cente r mg(2.5 mg (six) base)/3 mL hours. nebulizer solution zinc oxide 3-[address] [facility] % 5-11 topically [facility]intment 00:[facility]: as needed. Med ical 00 Center hydrALAZINE 2023-0 Yes 50mg Q.[id number] Take [address] [facility] (APRESOLINE 5-11 [id number] tablet (50 [facility] ) 50 MG 00:00: 3D mg total) Medic al tablet 00 by mouth Center in the morning and 1 tablet (50 mg total) at noon and 1 tablet (50 mg total) in the evening. . carvediloL 2023-0 Yes 25mg Take 1 [facility] (COREG) 25 5-11 tablet (25 [facility] tablet 00:00: mg total) Med ical 00 by mouth 2 Center (two) times daily with breakfast and dinner. ipratropium 2023-0 Yes 3mL Take [address] [facility] -albuteroL 5-11 by [facility] (DUO-NEB) 00:00: nebulizati Me dical 0.5 mg-3 00 on every 6 Cente r mg(2.5 mg (six) base)/3 mL hours. nebulizer solution zinc oxide 3-[address] [facility] % 5-11 topically [facility]intment 00:[facility]: as needed. Med ical 00 Center hydrALAZINE 2023-0 Yes 50mg Q.[id number] Take [address] [facility] (APRESOLINE 5-11 [id number] tablet (50 [facility] ) 50 MG 00:00: 3D mg total) Medic al tablet 00 by mouth Center in the morning and 1 tablet (50 mg total) at noon and 1 tablet (50 mg total) in the evening. . carvediloL 2023-0 Yes 25mg Take 1 [facility] (COREG) 25 5-11 tablet (25 [facility] tablet 00:00: mg total) Med ical 00 by mouth 2 Center (two) times daily with breakfast and dinner. ipratropium 2023-0 Yes 3mL Take [address] [facility] -albuteroL 5-11 by [facility] (DUO-NEB) 00:00: nebulizati Me dical 0.5 mg-3 00 on every 6 Cente r mg(2.5 mg (six) base)/3 mL hours. nebulizer solution zinc oxide 3-[address] [facility] % 5-11 topically [facility]intment 00:[facility]: as needed. Med ical 00 Center hydrALAZINE 2023-0 Yes 50mg Q.[id number] Take [address] [facility] (APRESOLINE 5-11 [id number] tablet (50 [facility] ) 50 MG 00:00: 3D mg total) Medic al tablet 00 by mouth Center in the morning and 1 tablet (50 mg total) at noon and 1 tablet (50 mg total) in the evening. . carvediloL 2023-0 Yes 25mg Take 1 [facility] (COREG) 25 5-11 tablet (25 [facility] tablet 00:00: mg total) Med ical 00 by mouth 2 Center (two) times daily with breakfast and dinner. ipratropium 2023-0 Yes 3mL Take [address] [facility] -albuteroL 5-11 by [facility] (DUO-NEB) 00:00: nebulizati Me dical 0.5 mg-3 00 on every 6 Cente r mg(2.5 mg (six) base)/3 mL hours. nebulizer solution zinc oxide 3-[address] [facility] % 5-11 topically [facility]intment 00:00: as needed. Med ical 00 Center hydrALAZINE 2023-0 Yes 50mg Q.[id number] Take [address] [facility] (APRESOLINE 5-11 [id number] tablet (50 [facility] ) 50 MG 00:00: 3D mg total) Medic al tablet 00 by mouth Center in the morning and 1 tablet (50 mg total) at noon and 1 tablet (50 mg total) in the evening. . carvediloL 2023-0 Yes 25mg Take 1 [facility] (COREG) 25 5-11 tablet (25 [facility] tablet 00:00: mg total) Med ical 00 by mouth 2 Center (two) times daily with breakfast and dinner. ipratropium 2023-0 Yes 3mL Take [address] [facility] -albuteroL 5-11 by [facility] (DUO-NEB) 00:00: nebulizati Me dical 0.5 mg-3 00 on every 6 Cente r mg(2.5 mg (six) base)/3 mL hours. nebulizer solution zinc oxide 3-[address] [facility] % 5-11 topically [facility]intment 00:00: as needed. Med ical 00 Center hydrALAZINE 2023-0 Yes 50mg Q.[id number] Take [address] [facility] (APRESOLINE 5-11 [id number] tablet (50 [facility] ) 50 MG 00:00: 3D mg total) Medic al tablet 00 by mouth Center in the morning and 1 tablet (50 mg total) at noon and 1 tablet (50 mg total) in the evening. . carvediloL 2023-0 Yes 25mg Take 1 [facility] (COREG) 25 5-11 tablet (25 [facility] tablet 00:00: mg total) Med ical 00 by mouth 2 Center (two) times daily with breakfast and dinner. ipratropium 2023-0 Yes 3mL Take [address] [facility] -albuteroL 5-11 by [facility] (DUO-NEB) 00:00: nebulizati Me dical 0.5 mg-3 00 on every 6 Cente r mg(2.5 mg (six) base)/3 mL hours. nebulizer solution zinc oxide 3-[address] [facility] % 5-11 topically [facility]intment 00:00: as needed. Med ical 00 Center hydrALAZINE 2023-0 Yes 50mg Q.[id number] Take [address] [facility] (APRESOLINE 5-11 [id number] tablet (50 [facility] ) 50 MG 00:00: 3D mg total) Medic al tablet 00 by mouth Center in the morning and 1 tablet (50 mg total) at noon and 1 tablet (50 mg total) in the evening. . carvediloL 2023-0 Yes 25mg Take 1 [facility] (COREG) 25 5-11 tablet (25 [facility] tablet 00:00: mg total) Med ical 00 by mouth 2 Center (two) times daily with breakfast and dinner. ipratropium 2023-0 Yes 3mL Take [address] [facility] -albuteroL 5-11 by [facility] (DUO-NEB) 00:00: nebulizati Me dical 0.5 mg-3 00 on every 6 Cente r mg(2.5 mg (six) base)/3 mL hours. nebulizer solution zinc oxide 3-[address] [facility] 20 % 5-11 topically [facility] ointment 00:00: as needed. Med ical 00 Center hydrALAZINE 2023-0 Yes 50mg Q.[id number] Take [address] [facility] (APRESOLINE 5-11 [id number] tablet (50 [facility] ) 50 MG 00:00: 3D mg total) Medic al tablet 00 by mouth Center in the morning and 1 tablet (50 mg total) at noon and 1 tablet (50 mg total) in the evening. . carvediloL 2023-0 Yes 25mg Take 1 [facility] (COREG) 25 5-11 tablet (25 [facility] tablet 00:00: mg total) Med ical 00 by mouth 2 Center (two) times daily with breakfast and dinner. ipratropium 2023-0 Yes 3mL Take [address] [facility] -albuteroL 5-11 by [facility] (DUO-NEB) 00:00: nebulizati Me dical 0.5 mg-3 00 on every 6 Cente r mg(2.5 mg (six) base)/3 mL hours. nebulizer solution zinc oxide 3-[address] [facility] % 5-11 topically [facility]intment 00:00: as needed. Med ical 00 Center hydrALAZINE 2023-0 Yes 50mg Q.[id number] Take [address] [facility] (APRESOLINE 5-11 [id number] tablet (50 [facility] ) 50 MG 00:00: 3D mg total) Medic al tablet 00 by mouth Center in the morning and 1 tablet (50 mg total) at noon and 1 tablet (50 mg total) in the evening. . carvediloL 2023-0 Yes 25mg Take 1 [facility] (COREG) 25 5-11 tablet (25 [facility] tablet 00:00: mg total) Med ical 00 by mouth 2 Center (two) times daily with breakfast and dinner. ipratropium 2022-0 Yes 3mL Take [address] [facility] -albuteroL 5-11 by [facility] (DUO-NEB) 00:00: nebulizati Me dical 0.5 mg-3 00 on every 6 Cente r mg(2.5 mg (six) base)/3 mL hours. nebulizer solution lactobacill 2022- No 1{capsu Q.5D Take [address] [facility] us 5-11 05-25 le} capsule by [facility] rhamnosus, 00:00: 23:59 mouth in Ms dical GG, 00 :00 the Center (CULTURE ) 10 and 1 billion capsule cell before capsule bedtime. Do all this for 14 days. lactobacill 2022- No 1{capsu Q.5D Take [address] [facility] us 5-11 05-25 le} capsule by [facility] rhamnosus, 00:00: 23:59 mouth in Ms dical GG, 00 :00 the Center (CULTURE ) 10 and 1 billion capsule cell before capsule bedtime. Do all this for 14 days. lactobacill 2022- No 1{capsu Q.5D Take [address] [facility] us 5-11 05-25 le} capsule by [facility] rhamnosus, 00:00: 23:59 mouth in Ms dical GG, 00 :00 the Center (CULTURE ) 10 and 1 billion capsule cell before capsule bedtime. Do all this for 14 days. lactobacill 2022- No 1{capsu Q.5D Take [address] [facility] us 5-11 05-25 le} capsule by [facility] rhamnosus, 00:00: 23:59 mouth in Ms dical GG, 00 :00 the Center (CULTURE ) 10 and 1 billion capsule cell before capsule bedtime. Do all this for 14 days. lactobacill 2022- No 1{capsu Q.5D Take [address] [facility] us 5-11 05-25 le} capsule by [facility], 00:00: 23:59 mouth in Ms dical GG, 00 :00 the Center (CULTURE ) 10 and 1 billion capsule cell before capsule bedtime. Do all this for 14 days. lactobacill 2022- No 1{capsu Q.5D Take [address] [facility] us 5-11 05-25 le} capsule by [facility], 00:00: 23:59 mouth in Ms dical , 00 :00 the Center (CULTURE ) 10 and 1 billion capsule cell before capsule bedtime. Do all this for 14 days. lactobacill 2022- No 1{capsu Q.5D Take [address] [facility] us 5-11 05-25 le} capsule by [facility], 00:00: 23:59 mouth in Ms [facility]ical , 00 :00 the Center (CULTURE ) 10 and 1 billion capsule cell before capsule bedtime. Do all this for 14 days. lactobacill 2022- No 1{capsu Q.5D Take [address] [facility] us 5-11 05-25 le} capsule by [facility]hamnosus, 00:00: 23:59 mouth in [facility], 00 :00 the Center (CULTURE ) 10 and 1 billion capsule cell before capsule bedtime. Do all this for 14 days. lactobacill 2022- No 1{capsu Q.5D Take [address] [facility] us 5-11 05-25 le} capsule by [facility], 00:00: 23:59 mouth in [facility], 00 :00 the Center (CULTURE ) 10 and 1 billion capsule cell before capsule bedtime. Do all this for 14 days. lactobacill 2022- No 1{capsu Q.5D Take [address] [facility] us 5-11 05-25 le} capsule by [facility], 00:00: 23:59 mouth in [facility], 00 :00 the Center (CULTURE ) 10 and 1 billion capsule cell before capsule bedtime. Do all this for 14 days. lactobacill 2022- No 1{capsu Q.5D Take [address] [facility] us 5-11 05-25 le} capsule by [facility], 00:00: 23:59 mouth in [facility], 00 :00 the Center (CULTURE ) 10 and 1 billion capsule cell before capsule bedtime. Do all this for 14 days. lactobacill 2022- No 1{capsu Q.5D Take [address] [facility] us 5-11 05-25 le} capsule by [facility], 00:00: 23:59 mouth in [facility], 00 :00 the Center (CULTURE ) 10 and 1 billion capsule cell before capsule bedtime. Do all this for 14 days. lactobacill 2022- No 1{capsu Q.5D Take [address] [facility] us 5-11 05-25 le} capsule by [facility], 00:00: 23:59 mouth in [facility], 00 :00 the Center (CULTURE ) 10 and 1 billion capsule cell before capsule bedtime. Do all this for 14 days. lactobacill 2022- No 1{capsu Q.5D Take [address] [facility] us 5-11 05-25 le} capsule by [facility], 00:00: 23:59 mouth in [facility], 00 :00 the Center (CULTURE ) 10 and 1 billion capsule cell before capsule bedtime. Do all this for 14 days. lactobacill 2022- No 1{capsu Q.5D Take [address] [facility] us 5-11 05-25 le} capsule by [facility], 00:00: 23:59 mouth in [facility], 00 :00 the Center (CULTURE ) 10 and 1 billion capsule cell before capsule bedtime. Do all this for 14 days. lactobacill 2022- No 1{capsu Q.5D Take [address] [facility] us 5-11 05-25 le} capsule by [facility], 00:00: 23:59 mouth in [facility], 00 :00 the Center ( ) 10 and 1 billion capsule cell before capsule bedtime. Do all this for 14 days. levoFLOXaci 2022-0 2022- No 500mg Q24H Take [address] [facility] [address] [facility] 5-11 05-21 tablet [facility] (LEVAQUIN) 00:00: 23:59 (500 mg Med ical 500 MG 00 :00 total) by Center tablet mouth in the morning for 10 days. levoFLOXaci 2022-0 2022- No 500mg Q24H Take [address] [facility] [address] [facility] 5-11 05-21 tablet [facility] (LEVAQUIN) 00:00: 23:59 (500 mg Med ical 500 MG 00 :00 total) by Center tablet mouth in the morning for 10 days. levoFLOXaci 2022-0 2022- No 500mg Q24H Take [address] [facility] [address] [facility] n 12-08-21 tablet [facility] (LEVAQUIN) 00:00: 23:59 (500 mg Med ical 500 MG 00 :00 total) by Center tablet mouth in the morning for 10 days. levoFLOXaci 2023-0 2023- No 500mg Q24H Take [address] [facility] [address] [facility] n 12-08-21 tablet [facility] (LEVAQUIN) 00:00: 23:59 (500 mg Med ical 500 MG 00 :00 total) by Center tablet mouth in the morning for 10 days. levoFLOXaci 2023-0 2023- No 500mg Q24H Take [address] [facility] [address] [facility] 12-08-21 tablet [facility] (LEVAQUIN) 00:00: 23:59 (500 mg Med ical 500 MG 00 :00 total) by Center tablet mouth in the morning for 10 days. levoFLOXaci 2023-0 2023- No 500mg Q24H Take [address] [facility] [address] [facility] 12-08-21 tablet [facility] (LEVAQUIN) 00:00: 23:59 (500 mg Med ical 500 MG 00 :00 total) by Center tablet mouth in the morning for 10 days. levoFLOXaci 2023-0 2023- No 500mg Q24H Take [address] [facility] [address] [facility] n 12-0821 tablet [facility] (LEVAQUIN) 00:00: 23:59 (500 mg Med ical 500 MG 00 :00 total) by Center tablet mouth in the morning for 10 days. levoFLOXaci 2023-0 2023- No 500mg Q24H Take [address] [facility] [address] n 12-0821 tablet [facility] (LEVAQUIN) 00:00: 23:59 (500 mg Med ical 500 MG 00 :00 total) by Center tablet mouth in the morning for 10 days. levoFLOXaci 2023-0 2023- No 500mg Q24H Take [address] [facility] [address] [facility] n 5 05-21 tablet [facility] (LEVAQUIN) 00:00: 23:59 (500 mg Med ical 500 MG 00 :00 total) by Center tablet mouth in the morning for 10 days. levoFLOXaci 2023-0 2023- No 500mg Q24H Take [address] [facility] [address] [facility] 12-08 05-21 tablet [facility] (LEVAQUIN) 00:00: 23:59 (500 mg Med ical 500 MG 00 :00 total) by Center tablet mouth in the morning for 10 days. levoFLOXaci 2023-0 2023- No 500mg Q24H Take [address] [facility] [address] [facility] 12-0821 tablet [facility] (LEVAQUIN) 00:00: 23:59 (500 mg Med ical 500 MG 00 :00 total) by Center tablet mouth in the morning for 10 days. levoFLOXaci 2023-0 2023- No 500mg Q24H Take [address] [facility] [address] [facility] 12-08 tablet [facility] (LEVAQUIN) 00:00: 23:59 (500 mg Med ical 500 MG 00 :00 total) by Center tablet mouth in the morning for 10 days. levoFLOXaci 2023-0 2023- No 500mg Q24H Take [address] [facility] [address] [facility] 12-08 tablet [facility] (LEVAQUIN) 00:00: 23:59 (500 mg Med ical 500 MG 00 :00 total) by Center tablet mouth in the morning for 10 days. levoFLOXaci 2023-0 2023- No 500mg Q24H Take [address] [facility] [address] [facility] 12-08 tablet [facility] (LEVAQUIN) 00:00: 23:59 (500 mg Med ical 500 MG 00 :00 total) by Center tablet mouth in the morning for 10 days. levoFLOXaci 2023-0 2023- No 500mg Q24H Take [address] [facility] [address] [facility] 12-08 tablet [facility] (LEVAQUIN) 00:00: 23:59 (500 mg Med ical 500 MG 00 :00 total) by Center tablet mouth in the morning for 10 days. levoFLOXaci 2023-0 2023- No 500mg Q24H Take [address] [facility] [address] [facility] 12-0821 tablet [facility] (LEVAQUIN) 00:00: 23:59 (500 mg Med ical 500 MG 00 :00 total) by Center tablet mouth in the morning for 10 days. hydrALAZINE 2023-0 Yes 10mg Q.[id number] Take [address] [facility] (APRESOLINE -09 [id number] tablet (10 [facility] ) 10 MG 07:28: 3D mg total) Medic al tablet 07 by mouth Center in the morning and 1 tablet (10 mg total) at noon and 1 tablet (10 mg total) in the evening. hydrALAZINE 2023-0 Yes 10mg Q.[id number] Take [address] [facility] (APRESOLINE 12-06 [id number] tablet (10 [facility] ) 10 MG 07:28: 3D mg total) Medic al tablet 07 by mouth Center in the morning and 1 tablet (10 mg total) at noon and 1 tablet (10 mg total) in the evening. amLODIPine 2023-0 Yes 10mg QD Take [facility] (NORVASC[facility] 5-07 tablet (10 [facility] 10 MG 07:27: mg total) Medical tablet 11 by mouth Center nightly Hold sbp<110, dbp<60, HR <60. amLODIPine 2023-0 Yes 10mg QD Take 1 [facility] (NORVASC) 5-07 tablet (10 [facility] 10 MG 07:27: mg total) Medical tablet 11 by mouth Center nightly Hold sbp<110, dbp<60, HR <60. amLODIPine 2023-0 Yes 10mg QD Take 1 [facility] (NORVASC) 5-07 tablet (10 [facility] 10 MG 07:27: mg total) Medical tablet 11 by mouth Center nightly Hold sbp<110, dbp<60, HR <60. amLODIPine 2023-0 Yes 10mg QD Take 1 [facility] (NORVASC) 5-07 tablet (10 [facility] 10 MG 07:27: mg total) Medical tablet 11 by mouth Center nightly Hold sbp<110, dbp<60, HR <60. amLODIPine 2023-0 Yes 10mg QD Take 1 [facility] (NORVASC) 5-07 tablet (10 [facility] 10 MG 07:27: mg total) Medical tablet 11 by mouth Center nightly Hold sbp<110, dbp<60, HR <60. amLODIPine 2023-0 Yes 10mg QD Take 1 [facility] (NORVASC) 5-07 tablet (10 [facility] 10 MG 07:27: mg total) Medical tablet 11 by mouth Center nightly Hold sbp<110, dbp<60, HR <60. acetaminoph 2023-0 Yes 650mg Take [address] [facility] en 5-05 tablets [facility] (TYLENOL) 15:03: (650 mg Medic al 325 MG 19 total) by Center tablet mouth every 4 (four) hours as needed for Pain. acetylcyste 2023-0 Yes 1mL Take [address] ine 5-05 by [facility] (MUCOMYST) 15:03: nebulizati M edical 100 mg/mL 19 on every Center (10 %) 10% 12 nebulizer (twelve) solution hours. albuterol 2023-0 Yes 2.5mg Take 0.[address] [facility] (PROVENTIL) 5-05 mLs (2.5 [facility] 2.5 mg/0.5 15:03: mg total) Me dical mL Nebu 19 by Center nebulizer nebulizati solution on every 12 (twelve) hours. aspirin 81 2023-0 Yes 81mg QD Take 1 [facility] MG chewable 5-05 tablet (81 [facility] tablet 15:03: mg total) Medica l 19 by mouth Center in the morning. budesonide 2023-0 Yes .5mg Take [address] [facility] (PULMICORT) 5-05 (0.5 mg [facility] 0.5 mg/2 mL 15:03: total) by edical nebulizer 19 nebulizati Cent er solution on every 12 (twelve) hours. cloNIDine 2023-0 Yes .1mg Take [address] [facility] HCL 5-05 tablet [facility] (CATAPRES) 15:03: (0.1 mg Medi michelle 0.1 MG 19 total) by Center tablet mouth every 8 (eight) hours as needed (sbp<150, dbp>90). lactulose 2023-0 Yes 20g Take 30 [facility] (CHRONULAC) 5-05 mLs (20 g [facility] 10 gram/15 15:03: total) by Ms dical mL (15 mL) 19 mouth Center solution every 6 (six) hours as needed (constipat ion). escitalopra 2023-0 Yes 10mg QD Take [address] [facility] m oxalate 5-05 tablet (10 [facility] (LEXAPRO) 15:03: mg total) Med ical 10 MG 19 by mouth Center tablet in the morning. FERROUS 2023-0 Yes 5mg Take 5 mg [facility] SULFATE 5-05 by mouth [facility] ORAL 15:03: every 12 Medical 19 (twelve) Center hours Ferrous sulfate 5mg/20ml. Give 5ml every 12 hours. tamsulosin 2023-0 Yes .4mg QD Take 1 [facility] (FLOMAX) 5-05 capsule [facility] 0.4 mg Cap 15:03: (0.4 mg Medi michelle 24 hr 19 total) by Center capsule mouth nightly. hydrALAZINE 2022-0 Yes 10mg Q.10091940 Take [address] [facility] (APRESOLINE 5-05 [id number] tablet (10 [facility] ) 10 MG 15:03: 3D mg total) Medic al tablet 19 by mouth Center in the morning and 1 tablet (10 mg total) at noon and 1 tablet (10 mg total) in the evening. hydrOXYzine 2022-0 Yes 10mg Take [address] [facility] (ATARAX) 10 5-05 tablet (10 [facility] MG tablet 15:03: mg total) Med ical 19 by mouth Center every 8 (eight) hours as needed for Itching (pruritus) . insulin 0 Yes 29U Inject 29 [facility] glargine 5-05 Units [facility] (LANTUS, 15:03: subcutaneo Med ical SEMGLEE) 19 usly every Cente r 100 unit/mL 12 injection (twelve) hours Use as directed. insulin [address] [facility] lispro 5-05 subcutaneo [facility] (HumaLOG) 15:03: usly every Me dical 100 unit/mL 19 6 (six) Cente r injection hours Per sliding scale. ipratropium 0 Yes .5mg Take 2.[address] [facility] (ATROVENT) 5-05 mLs (0.5 [facility] 0.02 % 15:03: mg total) Medica l nebulizer 19 by Center solution nebulizati on every 12 (twelve) hours. levothyroxi 2022-0 Yes 25ug Take [address] [facility] ne 5-05 tablet (25 [facility] (SYNTHROID, 15:03: mcg total) Medical LEVOTHROID) 19 by mouth Cent er 25 MCG Every tablet morning on an empty stomach. lidocaine 2022-0 Yes 1{patch Place [address] [facility] [address] [facility] (LIDODERM) 5-05 } patch onto [facility] 5 % patch 15:03: the skin Medi michelle 19 every 12 Center (twelve) hours Remove & Discard patch within 12 hours or as directed by . nystatin 2022-0 Yes [id number] Take [address] [facility] (MYCOSTATIN 5-05 (500,000 [facility] ) 100,000 15:03: Units Medical unit/mL 19 total) by Center suspension mouth every 12 (twelve) hours For redness related to candidiasi s of skin and nail. omeprazole 3-0 Yes 10mg QD Take 1 [facility] (PriLOSEC) 5-05 capsule [facility] 10 MG 15:03: (10 mg Medical capsule 19 total) by Center mouth in the morning. ondansetron 3-0 Yes 4mg Take [address] [facility] (ZOFRAN) 4 5-05 tablet (4 [facility] MG tablet 15:03: mg total) Med ical 19 by mouth Center every 6 (six) hours as needed for Nausea. acetaminoph 3-0 Yes 650mg Take [address] [facility] en 5-05 tablets [facility] (TYLENOL) 15:03: (650 mg Medic al 325 MG 19 total) by Center tablet mouth every 4 (four) hours as needed for Pain. acetylcyste 2022-0 Yes 1mL Take [address] ine 5-05 by [facility] (MUCOMYST) 15:03: nebulizati M edical 100 mg/mL 19 on every Center (10 %) 10% 12 nebulizer (twelve) solution hours. albuterol 3-0 Yes 2.5mg Take 0.[address] [facility] (PROVENTIL) 5-05 mLs (2.5 [facility] 2.5 mg/0.5 15:03: mg total) Me dical mL Nebu 19 by Center nebulizer nebulizati solution on every 12 (twelve) hours. aspirin 81 3-0 Yes 81mg QD Take 1 [facility] chewable 5-05 tablet (81 [facility] tablet 15:03: mg total) Medica l 19 by mouth Center in the morning. budesonide 2023-0 Yes .5mg Take [address] [facility] (PULMICORT) 5-05 (0.5 mg [facility] 0.5 mg/2 mL 15:03: total) by M edical nebulizer [address]buliz[address] er solution on every 12 (twelve) hours. cloNIDine 2023-0 Yes .1mg Take [address] [facility] HCL 5-05 tablet [facility] (CATAPRES) 15:03: (0.1 mg Medi michelle 0.1 MG 19 total) by Center tablet mouth every 8 (eight) hours as needed (sbp<150, dbp>90). lactulose 2023-0 Yes 20g Take 30 [facility] (CHRONULAC) 5-05 mLs (20 g [facility] 10 gram/15 15:03: total) by Me dical mL (15 mL) 19 mouth Center solution every 6 (six) hours as needed (constipat ion). escitalopra 2023-0 Yes 10mg QD Take [address] [facility] m oxalate 5-05 tablet (10 [facility] (LEXAPRO) 15:03: mg total) Med ical 10 MG 19 by mouth Center tablet in the morning. FERROUS 2023-0 Yes 5mg Take 5 mg [facility] SULFATE 5-05 by mouth [facility] ORAL 15:03: every 12 Medical 19 (twelve) Center hours Ferrous sulfate 5mg/20ml. Give 5ml every 12 hours. tamsulosin 2023-0 Yes .4mg QD Take 1 [facility] (FLOMAX) 5-05 capsule [facility] 0.4 mg Cap 15:03: (0.4 mg Medi michelle 24 hr 19 total) by Center capsule mouth nightly. hydrALAZINE 2023-0 Yes 10mg Q.[id number] Take [address] [facility] (APRESOLINE 5-05 [id number] tablet (10 [facility] ) 10 MG 15:03: 3D mg total) Medic al tablet 19 by mouth Center in the morning and 1 tablet (10 mg total) at noon and 1 tablet (10 mg total) in the evening. hydrOXYzine 2023-0 Yes 10mg Take [address] [facility] (ATARAX) 10 5-05 tablet (10 [facility] MG tablet 15:03: mg total) Med ical 19 by mouth Center every 8 (eight) hours as needed for Itching (pruritus) . insulin 2023-0 Yes 29U Inject 29 [facility] glargine 5-05 [facility] (LANTUS, 15:03: subcutaneo Med ical SEMGLEE) 19 usly every Cente r 100 unit/mL 12 injection (twelve) hours Use as directed. insulin 2023-[address] [facility] lispro 5-05 subcutaneo [facility] (HumaLOG) 15:03: usly every Me dical 100 unit/mL 19 6 (six) Cente r injection hours Per sliding scale. ipratropium 2023-0 Yes .5mg Take 2.[address] [facility] (ATROVENT) 5-05 mLs (0.5 [facility] 0.02 % 15:03: mg total) Medica l nebulizer 19 by Center solution nebulizati on every 12 (twelve) hours. levothyroxi 2023-0 Yes 25ug Take [address] [facility] ne 5-05 tablet (25 [facility] (SYNTHROID, 15:03: mcg total) Medical LEVOTHROID) 19 by mouth Cent er 25 MCG Every tablet morning on an empty stomach. lidocaine 2022-0 Yes 1{patch Place [address] [facility] [address] [facility] (LIDODERM) 5-05 } patch onto [facility] 5 % patch 15:03: the skin Medi michelle 19 every 12 Center (twelve) hours Remove & Discard patch within 12 hours or as directed by MD. nystatin 2022-0 Yes [id number] Take [address] [facility] (MYCOSTATIN 5-05 (500,000 [facility] ) 100,000 15:03: Units Medical unit/mL 19 total) by Center suspension mouth every 12 (twelve) hours For redness related to candidiasi s of skin and nail. omeprazole 3-0 Yes 10mg QD Take 1 [facility] (PriLOSEC) 5-05 capsule [facility] 10 MG 15:03: (10 mg Medical capsule 19 total) by Center mouth in the morning. ondansetron 3-0 Yes 4mg Take [address] [facility] (ZOFRAN) 4 5-05 tablet (4 [facility] MG tablet 15:03: mg total) Med ical 19 by mouth Center every 6 (six) hours as needed for Nausea. acetaminoph 3-0 Yes 650mg Take [address] [facility] en 5-05 tablets [facility] (TYLENOL) 15:03: (650 mg Medic al 325 MG 19 total) by Center tablet mouth every 4 (four) hours as needed for Pain. acetylcyste 3-0 Yes 1mL Take [address] [facility] 5-05 by [facility] (MUCOMYST) 15:03: nebulizati M edical 100 mg/mL 19 on every Center (10 %) 10% 12 nebulizer (twelve) solution hours. albuterol 3-0 Yes 2.5mg Take 0.[address] [facility] (PROVENTIL) 5-05 mLs (2.5 [facility] 2.5 mg/0.5 15:03: mg total) Me dical mL Nebu 19 by Center nebulizer nebulizati solution on every 12 (twelve) hours. aspirin 81 2023-0 Yes 81mg QD Take 1 [facility] chewable 5-05 tablet (81 Eva kes tablet 15:03: mg total) Medica l 19 by mouth Center in the morning. budesonide 2023-0 Yes .5mg Take [address] [facility] (PULMICORT) 5-05 ([facility]5 mg [facility] mg/2 mL 15:03: total) by edical nebulizer [facility] er solution on every 12 (twelve) hours. cloNIDine 2023-0 Yes .1mg Take [address] [facility] HCL 5-05 tablet [facility] (CATAPRES) 15:03: (0.1 mg Medi michelle 0.1 MG 19 total) by Center tablet mouth every 8 (eight) hours as needed (sbp<150, dbp>90). lactulose 2023-0 Yes 20g Take [facility] (CHRONULAC[facility] 5-05 mLs (20 g [facility] 10 gram/15 15:03: total) by Ms dical mL (15 mL) 19 mouth Center solution every 6 (six) hours as needed (constipat ion). escitalopra 2023-0 Yes 10mg QD Take [address] [facility] m oxalate 5-05 tablet (10 [facility] (LEXAPRO) 15:03: mg total) Med ical 10 MG 19 by mouth Center tablet in the morning. FERROUS 2023-0 Yes 5mg Take 5 mg [facility] SULFATE 5-05 by mouth [facility] ORAL 15:03: every 12 Medical 19 (twelve) Center hours Ferrous sulfate 5mg/20ml. Give 5ml every 12 hours. tamsulosin 2023-0 Yes .4mg QD Take 1 [facility] (FLOMAX) 5-05 capsule [facility] 0.4 mg Cap 15:03: (0.4 mg Medi michelle 24 hr 19 total) by Center capsule mouth nightly. hydrALAZINE 2023-0 Yes 10mg Q.[id number] Take [address] [facility] (APRESOLINE 5-05 [id number] tablet (10 [facility] ) 10 MG 15:03: 3D mg total) Medic al tablet 19 by mouth Center in the morning and 1 tablet (10 mg total) at noon and 1 tablet (10 mg total) in the evening. hydrOXYzine 2022-0 Yes 10mg Take [address] [facility] (ATARAX) 10 5-05 tablet (10 [facility]es MG tablet 15:03: mg total) Med ical 19 by mouth Center every 8 (eight) hours as needed for Itching (pruritus) . insulin 2022-0 Yes 29U Inject 29 [facility] glargine 5-05 Units [facility] (LANTUS, 15:03: subcutaneo Med ical SEMGLEE) 19 usly every Cente r 100 unit/mL 12 injection (twelve) hours Use as directed. insulin 2022-[address] [facility] lispro 5-05 subcutaneo [facility] (HumaLOG) 15:03: usly every Me dical 100 unit/mL 19 6 (six) Cente r injection hours Per sliding scale. ipratropium 2022-0 Yes .5mg Take 2.[address] [facility] [address] [facility] (ATROVENT) 5-05 mLs (0.5 [facility] 0.02 % 15:03: mg total) Medica l nebulizer 19 by Center solution nebulizati on every 12 (twelve) hours. levothyroxi 2022-0 Yes 25ug Take [address] [facility] ne 5-05 tablet (25 [facility] (SYNTHROID, 15:03: mcg total) Medical LEVOTHROID) 19 by mouth Cent er 25 MCG Every tablet morning on an empty stomach. lidocaine 2022-0 Yes 1{patch Place [address] [facility] (LIDODERM) 5-05 } patch onto [facility] 5 % patch 15:03: the skin Medi michelle 19 every 12 Center (twelve) hours Remove & Discard patch within 12 hours or as directed by . nystatin 2022-0 Yes [id number] Take [address] [facility] (MYCOSTATIN 5-05 (500,000 [facility] ) 100,000 15:03: Units Medical unit/mL 19 total) by Center suspension mouth every 12 (twelve) hours For redness related to candidiasi s of skin and nail. omeprazole 2022-0 Yes 10mg QD Take 1 [facility] (PriLOSEC) 5-05 capsule [facility] 10 MG 15:03: (10 mg Medical capsule 19 total) by Center mouth in the morning. ondansetron 3-0 Yes 4mg Take [address] [facility] (ZOFRAN) 4 5-05 tablet (4 [facility] MG tablet 15:03: mg total) Med ical 19 by mouth Center every 6 (six) hours as needed for Nausea. acetaminoph 2023-0 Yes 650mg Take [address] [facility] en 5-05 tablets [facility] (TYLENOL) 15:03: (650 mg Medic al 325 MG 19 total) by Center tablet mouth every 4 (four) hours as needed for Pain. acetylcyste 3-0 Yes 1mL Take [address] [facility] ine 5-05 by [facility] (MUCOMYST) 15:03: nebulizati M edical 100 mg/mL 19 on every Center (10 %) 10% 12 nebulizer (twelve) solution hours. albuterol 3-0 Yes 2.5mg Take 0.[address] [facility] (PROVENTIL) 5-05 mLs (2.5 [facility] 2.5 mg/0.5 15:03: mg total) Me dical mL Nebu 19 by Center nebulizer nebulizati solution on every 12 (twelve) hours. aspirin 81 3-0 Yes 81mg QD Take 1 [facility] chewable 5-05 tablet (81 [facility] tablet 15:03: mg total) Medica l 19 by mouth Center in the morning. budesonide 3-0 Yes .5mg Take [address] [facility] (PULMICORT) 5-05 (0.5 mg [facility] 0[facility] mg/2 mL 15:03: total) by M edical nebulizer [address] er solution on every 12 (twelve) hours. cloNIDine 2023-0 Yes .1mg Take [address] [facility] HCL 5-05 tablet [facility] (CATAPRES) 15:03: (0.1 mg Medi michelle 0.1 MG 19 total) by Center tablet mouth every 8 (eight) hours as needed (sbp<150, dbp>90). lactulose 3-0 Yes 20g Take 30 [facility] (CHRONULAC) 5-05 mLs (20 g [facility] 10 gram/15 15:03: total) by Me dical mL (15 mL) 19 mouth Center solution every 6 (six) hours as needed (constipat ion). escitalopra 2023-0 Yes 10mg QD Take [address] [facility] oxalate 5-05 tablet (10 [facility] (LEXAPRO) 15:03: mg total) Med ical 10 MG 19 by mouth Center tablet in the morning. FERROUS 2023-0 Yes 5mg Take 5 mg [facility] SULFATE 5-05 by mouth [facility] ORAL 15:03: every 12 Medical 19 (twelve) Center hours Ferrous sulfate 5mg/20ml. Give 5ml every 12 hours. tamsulosin 2023-0 Yes .4mg QD Take 1 [facility] (FLOMAX) 5-05 capsule [facility] 0.4 mg Cap 15:03: (0.4 mg [facility]i michelle 24 hr 19 total) by Center capsule mouth nightly. hydrALAZINE 2023-0 Yes 10mg Q.[id number] Take [address] [facility] (APRESOLINE 5-05 [id number] tablet (10 [facility] ) 10 MG 15:03: 3D mg total) Medic al tablet 19 by mouth Center in the morning and 1 tablet (10 mg total) at noon and 1 tablet (10 mg total) in the evening. hydrOXYzine 3-0 Yes 10mg Take [address] [facility] (ATARAX) 10 5-05 tablet (10 [facility] MG tablet 15:03: mg total) Med ical 19 by mouth Center every 8 (eight) hours as needed for Itching (pruritus) . insulin 2022-0 Yes 29U Inject 29 [facility] glargine 5-05 [facility] (LANTUS, 15:03: subcutaneo Med ical SEMGLEE) 19 usly every Cente r 100 unit/mL 12 injection (twelve) hours Use as directed. insulin 2022-[address] [facility] lispro 5-05 subcutaneo [facility] (HumaLOG) 15:03: usly every Me dical 100 unit/mL 19 6 (six) Cente r injection hours Per sliding scale. ipratropium 2023-0 Yes .5mg Take 2.[address] [facility] [address] [facility] (ATROVENT) 5-05 mLs (0.5 [facility] 0.02 % 15:03: mg total) Medica l nebulizer 19 by Center solution nebulizati on every 12 (twelve) hours. levothyroxi 2023-0 Yes 25ug Take [address] [facility] ne 5-05 tablet (25 [facility] (SYNTHROID, 15:03: mcg total) Medical LEVOTHROID) 19 by mouth Cent er 25 MCG Every tablet morning on an empty stomach. lidocaine 2022-0 Yes 1{patch Place [address] [facility] [address] [facility] (LIDODERM) 5-05 } patch onto [facility] 5 % patch 15:03: the skin Medi michelle 19 every 12 Center (twelve) hours Remove & Discard patch within 12 hours or as directed by . nystatin 3-0 Yes [id number] Take [address] [facility] (MYCOSTATIN 5-05 (500,000 [facility] ) 100,000 15:03: Units Medical unit/mL 19 total) by Center suspension mouth every 12 (twelve) hours For redness related to candidiasi s of skin and nail. omeprazole 3-0 Yes 10mg QD Take 1 [facility] (PriLOSEC) 5-05 capsule [facility] 10 MG 15:03: (10 mg Medical capsule 19 total) by Center mouth in the morning. ondansetron 3-0 Yes 4mg Take [address] [facility] (ZOFRAN) 4 5-05 tablet (4 [facility] MG tablet 15:03: mg total) Med ical 19 by mouth Center every 6 (six) hours as needed for Nausea. acetaminoph 2022-0 Yes 650mg Take [address] [facility] en 5-05 tablets [facility] (TYLENOL) 15:03: (650 mg Medic al 325 MG 19 total) by Center tablet mouth every 4 (four) hours as needed for Pain. acetylcyste 3-0 Yes 1mL Take [address] ine 5-05 by [facility] (MUCOMYST) 15:03: nebulizati M edical 100 mg/mL 19 on every Center (10 %) 10% 12 nebulizer (twelve) solution hours. albuterol 3-0 Yes 2.5mg Take 0.[address] [facility] (PROVENTIL) 5-05 mLs (2.5 [facility] 2.5 mg/0.5 15:03: mg total) Me dical mL Nebu 19 by Center nebulizer nebulizati solution on every 12 (twelve) hours. aspirin 81 2023-0 Yes 81mg QD Take 1 [facility] chewable 5-05 tablet (81 [facility] tablet 15:03: mg total) Medica l 19 by mouth Center in the morning. budesonide 2023-0 Yes .5mg Take [address] [facility] (PULMICORT) 5-05 (0.5 mg [facility] 0[facility] mg/2 mL 15:03: total) by edical nebulizer [address] er solution on every 12 (twelve) hours. cloNIDine 2023-0 Yes .1mg Take [address] [facility] HCL 5-05 tablet [facility] (CATAPRES) 15:03: (0.1 mg Medi michelle 0.1 MG 19 total) by Center tablet mouth every 8 (eight) hours as needed (sbp<150, dbp>90). lactulose 2023-0 Yes 20g Take 30 [facility] (CHRONULAC) 5-05 mLs (20 g [facility] 10 gram/15 15:03: total) by Ms dical mL (15 mL) 19 mouth Center solution every 6 (six) hours as needed (constipat ion). escitalopra 2022-0 Yes 10mg QD Take [address] [facility] m oxalate 5-05 tablet (10 [facility] (LEXAPRO) 15:03: mg total) Med ical 10 MG 19 by mouth Center tablet in the morning. FERROUS 2023-0 Yes 5mg Take 5 mg [facility] SULFATE 5-05 by mouth [facility] ORAL 15:03: every 12 Medical 19 (twelve) Center hours Ferrous sulfate 5mg/20ml. Give 5ml every 12 hours. tamsulosin 3-0 Yes .4mg QD Take 1 [facility] (FLOMAX) 5-05 capsule [facility] 0.4 mg Cap 15:03: (0.4 mg Medi michelle 24 hr 19 total) by Center capsule mouth nightly. hydrOXYzine 3-0 Yes 10mg Take [address] [facility] (ATARAX) 10 5-05 tablet (10 [facility] MG tablet 15:03: mg total) Med ical 19 by mouth Center every 8 (eight) hours as needed for Itching (pruritus) . insulin 3-0 Yes 29U Inject 29 [facility] glargine 5-05 [facility] (LANTUS, 15:03: subcutaneo Med ical SEMGLEE) 19 usly every Cente r 100 unit/mL 12 injection (twelve) hours Use as directed. insulin 3-[address] [facility] lispro 5-05 subcutaneo [facility] (HumaLOG) 15:03: usly every Me dical 100 unit/mL 19 6 (six) Cente r injection hours Per sliding scale. ipratropium 2022-0 Yes .5mg Take 2.[address] [facility] [address] [facility] (ATROVENT) 5-05 mLs (0.5 [facility] 0.02 % 15:03: mg total) Medica l nebulizer 19 by Center solution nebulizati on every 12 (twelve) hours. levothyroxi 2022-0 Yes 25ug Take [address] [facility] ne 5-05 tablet (25 [facility] (SYNTHROID, 15:03: mcg total) Medical LEVOTHROID) 19 by mouth Cent er 25 MCG Every tablet morning on an empty stomach. lidocaine 2022-0 Yes 1{patch Place [address] [facility] [address] [facility] (LIDODERM) 5-05 } patch onto [facility] 5 % patch 15:03: the skin Medi michelle 19 every 12 Center (twelve) hours Remove & Discard patch within 12 hours or as directed by MD. nystatin 2022-0 Yes [id number] Take [address] [facility] (MYCOSTATIN 5-05 (500,000 [facility] ) 100,000 15:03: Units Medical unit/mL 19 total) by Center suspension mouth every 12 (twelve) hours For redness related to candidiasi s of skin and nail. omeprazole 2022-0 Yes 10mg QD Take 1 [facility] (PriLOSEC) 5-05 capsule [facility] 10 MG 15:03: (10 mg Medical capsule 19 total) by Center mouth in the morning. ondansetron 2022-0 Yes 4mg Take [address] [facility] (ZOFRAN) 4 5-05 tablet (4 [facility] MG tablet 15:03: mg total) Med ical 19 by mouth Center every 6 (six) hours as needed for Nausea. acetaminoph 2023-0 Yes 650mg Take [address] [facility] en 5-05 tablets [facility] (TYLENOL) 15:03: (650 mg Medic al 325 MG 19 total) by Center tablet mouth every 4 (four) hours as needed for Pain. acetylcyste 3-0 Yes 1mL Take [address] ine 5-05 by [facility] (MUCOMYST) 15:03: nebulizati M edical 100 mg/mL 19 on every Center (10 %) 10% 12 nebulizer (twelve) solution hours. albuterol 2023-0 Yes 2.5mg Take 0.[address] [facility] (PROVENTIL) 5-05 mLs (2.5 [facility] 2.5 mg/0.5 15:03: mg total) Me dical mL Nebu 19 by Center nebulizer nebulizati solution on every 12 (twelve) hours. aspirin 81 2023-0 Yes 81mg QD Take 1 [facility] chewable 5-05 tablet (81 [facility] tablet 15:03: mg total) Medica l 19 by mouth Center in the morning. budesonide 2023-0 Yes .5mg Take [address] [facility] (PULMICORT) 5-05 (0.5 mg [facility] 0.[facility] mg/2 mL 15:03: total) by edical nebulizer [address] er solution on every 12 (twelve) hours. cloNIDine 2023-0 Yes .1mg Take [address] [facility] HCL 5-05 tablet [facility] (CATAPRES) 15:03: (0.1 mg Medi michelle 0.1 MG 19 total) by Center tablet mouth every 8 (eight) hours as needed (sbp<150, dbp>90). lactulose 2023-0 Yes 20g Take 30 [facility] (CHRONULAC) 5-05 mLs (20 g [facility] 10 gram/15 15:03: total) by Ms dical mL (15 mL) 19 mouth Center solution every 6 (six) hours as needed (constipat ion). escitalopra 2023-0 Yes 10mg QD Take [address] [facility] m oxalate 5-05 tablet (10 [facility] (LEXAPRO) 15:03: mg total) Med ical 10 MG 19 by mouth Center tablet in the morning. FERROUS 2023-0 Yes 5mg Take 5 mg [facility] SULFATE 5-05 by mouth [facility] ORAL 15:03: every 12 Medical 19 (twelve) Center hours Ferrous sulfate 5mg/20ml. Give 5ml every 12 hours. tamsulosin 2023-0 Yes .4mg QD Take 1 [facility] (FLOMAX) 5-05 capsule [facility] 0.4 mg Cap 15:03: (0.4 mg Medi michelle 24 hr 19 total) by Center capsule mouth nightly. hydrOXYzine 2023-0 Yes 10mg Take [address] [facility] (ATARAX) 10 5-05 tablet (10 [facility] MG tablet 15:03: mg total) Med ical 19 by mouth Center every 8 (eight) hours as needed for Itching (pruritus) . insulin 2022-0 Yes 29U Inject 29 [facility] glargine 5-05 [facility] (LANTUS, 15:03: subcutaneo Med ical SEMGLEE) 19 usly every Cente r 100 unit/mL 12 injection (twelve) hours Use as directed. insulin 2022-[address] [facility] lispro 5-05 subcutaneo [facility] (HumaLOG) 15:03: usly every Me dical 100 unit/mL 19 6 (six) Cente r injection hours Per sliding scale. ipratropium 2022-0 Yes .5mg Take 2.[address] [facility] [address] [facility] (ATROVENT) 5-05 mLs (0.5 [facility] 0.02 % 15:03: mg total) Medica l nebulizer 19 by Center solution nebulizati on every 12 (twelve) hours. levothyroxi 2022-0 Yes 25ug Take [address] [facility] ne 5-05 tablet (25 [facility] (SYNTHROID, 15:03: mcg total) Medical LEVOTHROID) 19 by mouth Cent er 25 MCG Every tablet morning on an empty stomach. lidocaine 0 Yes 1{patch Place [address] [facility] [address] [facility] (LIDODERM) 5-05 } patch onto [facility] 5 % patch 15:03: the skin Medi michelle 19 every 12 Center (twelve) hours Remove & Discard patch within 12 hours or as directed by . nystatin 2022-0 Yes [id number] Take [address] [facility] (MYCOSTATIN 5-05 (500,000 [facility] ) 100,000 15:03: Units Medical unit/mL 19 total) by Center suspension mouth every 12 (twelve) hours For redness related to candidiasi s of skin and nail. omeprazole 2022-0 Yes 10mg QD Take 1 [facility] (PriLOSEC) 5-05 capsule [facility] 10 MG 15:03: (10 mg Medical capsule 19 total) by Center mouth in the morning. ondansetron 2022-0 Yes 4mg Take [address] [facility] (ZOFRAN) 4 5-05 tablet (4 [facility] MG tablet 15:03: mg total) Med ical 19 by mouth Center every 6 (six) hours as needed for Nausea. carvedilol 2023-0 Yes 25mg Take 2 [facility] (COREG) 5-05 tablets [facility] 12.5 MG 11:50: (25 mg Medical tablet 14 total) by Center mouth every 12 (twelve) hours Hold sbp <110, dbp<60, pulse <60. carvedilol 2023-0 Yes 25mg Take 2 [facility] (COREG) 5-05 tablets [facility] 12.5 MG 11:50: (25 mg Medical tablet 14 total) by Center mouth every 12 (twelve) hours Hold sbp <110, dbp<60, pulse <60. carvedilol 3-0 Yes 25mg Take 2 [facility] (COREG) 5-05 tablets [facility] 12.5 MG 11:50: (25 mg Medical tablet 14 total) by Center mouth every 12 (twelve) hours Hold sbp <110, dbp<60, pulse <60. carvedilol 3-0 Yes 25mg Take 2 [facility] (COREG) 5-05 tablets [facility] 12.5 MG 11:50: (25 mg Medical tablet 14 total) by Center mouth every 12 (twelve) hours Hold sbp <110, dbp<60, pulse <60. carvedilol 3-0 Yes 25mg Take 2 [facility] (COREG) 5-05 tablets [facility] 12.5 MG 11:50: (25 mg Medical tablet 14 total) by Center mouth every 12 (twelve) hours Hold sbp <110, dbp<60, pulse <60. carvedilol 3-0 Yes 25mg Take 2 [facility] (COREG) 5-05 tablets [facility] 12.5 MG 11:50: (25 mg Medical tablet 14 total) by Center mouth every 12 (twelve) hours Hold sbp <110, dbp<60, pulse <60. budesonide 3-0 Yes .5mg Take [address] [facility] (PULMICORT) 5-04 (0.5 mg [facility] 0.[facility] mg/2 mL 06:48: total) by [facility] nebulizer [address] er solution on every 12 (twelve) hours. lactulose 2022-0 Yes 20g Take 30 [facility] (CHRONULAC) 5-04 mLs (20 g [facility] 10 gram/15 06:48: total) by Ms dical mL (15 mL) 17 mouth Center solution every 6 (six) hours as needed (constipat ion). escitalopra 2023-0 Yes 10mg QD Take [address] [facility] m oxalate 5-04 tablet (10 [facility] (LEXAPRO) 06:48: mg total) Med ical 10 MG 17 by mouth Center tablet in the morning. tamsulosin 2023-0 Yes .4mg QD Take 1 [facility] (FLOMAX) 5-04 capsule [facility] 0.4 mg Cap 06:48: (0.4 mg Medi michelle 24 hr 17 total) by Center capsule mouth nightly. hydrALAZINE 2023-0 Yes 10mg Q.[id number] Take [address] [facility] (APRESOLINE 5-04 [id number] tablet (10 [facility] ) 10 MG 06:48: 3D mg total) Medic al tablet 17 by mouth Center in the morning and 1 tablet (10 mg total) at noon and 1 tablet (10 mg total) in the evening. hydrOXYzine 3-0 Yes 10mg Take [address] [facility] (ATARAX) 10 5-04 tablet (10 [facility] MG tablet 06:48: mg total) Med ical 17 by mouth Center every 8 (eight) hours as needed for Itching (pruritus) . insulin 2022-0 Yes 29U Inject 29 [facility] glargine 5-04 [facility] (LANTUS, 06:48: subcutaneo Med ical SEMGLEE) 17 usly every Cente r 100 unit/mL 12 injection (twelve) hours Use as directed. insulin 2022-[address] [facility] lispro 5-04 subcutaneo [facility] (HumaLOG) 06:48: usly every Me dical 100 unit/mL 17 6 (six) Cente r injection hours Per sliding scale. ipratropium 2023-0 Yes .5mg Take 2.[address] [facility] [address] [facility] (ATROVENT) 5-04 mLs (0.5 [facility] 0.02 % 06:48: mg total) Medica l nebulizer 17 by Center solution nebulizati on every 12 (twelve) hours. levothyroxi 2023-0 Yes 25ug Take [address] [facility] ne 5-04 tablet (25 [facility] (SYNTHROID, 06:48: mcg total) Medical LEVOTHROID) 17 by mouth Cent er 25 MCG Every tablet morning on an empty stomach. lidocaine 2022-0 Yes 1{patch Place [address] [facility] (LIDODERM) 5-04 } patch onto [facility] 5 % patch 06:48: the skin Medi michelle 17 every 12 Center (twelve) hours Remove & Discard patch within 12 hours or as directed by . nystatin 2022-0 Yes [id number] Take [address] [facility] (MYCOSTATIN 5-04 (500,000 [facility] ) 100,000 06:48: Units Medical unit/mL 17 total) by Center suspension mouth every 12 (twelve) hours For redness related to candidiasi s of skin and nail. omeprazole 2022-0 Yes 10mg QD Take 1 [facility] (PriLOSEC) 5-04 capsule [facility] 10 MG 06:48: (10 mg Medical capsule 17 total) by Center mouth in the morning. ondansetron 2022-0 Yes 4mg Take [address] [facility] (ZOFRAN) 4 5-04 tablet (4 [facility] MG tablet 06:48: mg total) Med ical 17 by mouth Center every 6 (six) hours as needed for Nausea. budesonide 2022-0 Yes .5mg Take [address] [facility] (PULMICORT) 5-04 (0.5 mg [facility] 0.[facility] mg/2 mL 06:48: total) by edical nebulizer [address] er solution on every 12 (twelve) hours. lactulose 2022-0 Yes 20g Take 30 [facility] (CHRONULAC) 5-04 mLs (20 g [facility] 10 gram/15 06:48: total) by Ms dical mL (15 mL) 17 mouth Center solution every 6 (six) hours as needed (constipat ion). escitalopra 3-0 Yes 10mg QD Take [address] [facility] m oxalate 5-04 tablet (10 [facility] (LEXAPRO) 06:48: mg total) Med ical 10 MG 17 by mouth Center tablet in the morning. tamsulosin 3-0 Yes .4mg QD Take 1 [facility] (FLOMAX) 5-04 capsule [facility] 0.4 mg Cap 06:48: (0.4 mg Medi michelle 24 hr 17 total) by Center capsule mouth nightly. hydrALAZINE 3-0 Yes 10mg Q.[id number] Take [address] [facility] (APRESOLINE 5-04 [id number] tablet (10 [facility] ) 10 MG 06:48: 3D mg total) Medic al tablet 17 by mouth Center in the morning and 1 tablet (10 mg total) at noon and 1 tablet (10 mg total) in the evening. hydrOXYzine Yes 10mg Take [address] [facility] (ATARAX) 10 5-04 tablet (10 Eva kes MG tablet 06:48: mg total) Med ical 17 by mouth Center every 8 (eight) hours as needed for Itching (pruritus) . insulin Yes 29U Inject 29 [facility] glargine 5-04 [facility] (LANTUS, 06:48: subcutaneo Med ical SEMGLEE) 17 usly every Cente r 100 unit/mL 12 injection (twelve) hours Use as directed. insulin Yes Inject [facility] lispro 5-04 subcutaneo [facility] (HumaLOG) 06:48: usly every Me dical 100 unit/mL 17 6 (six) Cente r injection hours Per sliding scale. ipratropium Yes .5mg Take 2.[address] [facility] [address] [facility] (ATROVENT) 5-04 mLs (0.5 [facility] 0.02 % 06:48: mg total) Medica l nebulizer 17 by Center solution nebulizati on every 12 (twelve) hours. levothyroxi Yes 25ug Take [address] [facility] ne 5-04 tablet (25 [facility] (SYNTHROID, 06:48: mcg total) Medical LEVOTHROID) 17 by mouth Cent er 25 MCG Every tablet morning on an empty stomach. lidocaine 0 Yes 1{patch Place [address] [facility] (LIDODERM) 5-04 } patch onto [facility] 5 % patch 06:48: the skin Medi michelle 17 every 12 Center (twelve) hours Remove & Discard patch within 12 hours or as directed by . nystatin 0 Yes [id number] Take [address] [facility] (MYCOSTATIN 5-04 (500,000 [facility] ) 100,000 06:48: Units Medical unit/mL 17 total) by Center suspension mouth every 12 (twelve) hours For redness related to candidiasi s of skin and nail. omeprazole 2023-0 Yes 10mg QD Take 1 [facility] (PriLOSEC) 5-04 capsule [facility] 10 MG 06:48: (10 mg Medical capsule 17 total) by Center mouth in the morning. ondansetron 2023-0 Yes 4mg Take [address] [facility] (ZOFRAN) 4 5-04 tablet (4 [facility] MG tablet 06:48: mg total) Med ical 17 by mouth Center every 6 (six) hours as needed for Nausea. budesonide 2023-0 Yes .5mg Take [address] [facility] (PULMICORT) 5-04 (0.5 mg [facility] 0.5 mg/2 mL 06:48: total) by edical nebulizer [address] er solution on every 12 (twelve) hours. lactulose 3-0 Yes 20g Take 30 [facility] (CHRONULAC) 5-04 mLs (20 g [facility] 10 gram/15 06:48: total) by Ms dical mL (15 mL) 17 mouth Center solution every 6 (six) hours as needed (constipat ion). escitalopra 2023-0 Yes 10mg QD Take [address] [facility] m oxalate 5-04 tablet (10 [facility] (LEXAPRO) 06:48: mg total) Med ical 10 MG 17 by mouth Center tablet in the morning. tamsulosin 2023-0 Yes .4mg QD Take 1 [facility] (FLOMAX) 5-04 capsule [facility] 0.4 mg Cap 06:48: (0.4 mg Medi michelle 24 hr 17 total) by Center capsule mouth nightly. hydrALAZINE 2023-0 Yes 10mg Q.[id number] Take [address] [facility] (APRESOLINE 5-04 [id number] tablet (10 [facility] ) 10 MG 06:48: 3D mg total) Medic al tablet 17 by mouth Center in the morning and 1 tablet (10 mg total) at noon and 1 tablet (10 mg total) in the evening. hydrOXYzine 2023-0 Yes 10mg Take [address] [facility] (ATARAX) 10 5-04 tablet (10 [facility] kes MG tablet 06:48: mg total) Med ical 17 by mouth Center every 8 (eight) hours as needed for Itching (pruritus) . insulin 2023-0 Yes 29U Inject 29 [facility] glargine 5-04 [facility] (LANTUS, 06:48: subcutaneo Med ical SEMGLEE) 17 usly every Cente r 100 unit/mL 12 injection (twelve) hours Use as directed. insulin [address] [facility] lispro 5-04 subcutaneo [facility] (HumaLOG) 06:48: usly every Me dical 100 unit/mL 17 6 (six) Cente r injection hours Per sliding scale. ipratropium 2022-0 Yes .5mg Take 2.[address] [facility] (ATROVENT) 5-04 mLs (0.5 [facility] 0.02 % 06:48: mg total) Medica l nebulizer 17 by Center solution nebulizati on every 12 (twelve) hours. levothyroxi 0 Yes 25ug Take [address] [facility] ne 5-04 tablet (25 [facility] (SYNTHROID, 06:48: mcg total) Medical LEVOTHROID) 17 by mouth Cent er 25 MCG Every tablet morning on an empty stomach. lidocaine 0 Yes 1{patch Place [address] [facility] [address] [facility] (LIDODERM) 5-04 } patch onto [facility] 5 % patch 06:48: the skin Medi michelle 17 every 12 Center (twelve) hours Remove & Discard patch within 12 hours or as directed by MD. nystatin 0 Yes [id number] Take [address] [facility] (MYCOSTATIN 5-04 (500,000 [facility] ) 100,000 06:48: Units Medical unit/mL 17 total) by Center suspension mouth every 12 (twelve) hours For redness related to candidiasi s of skin and nail. omeprazole 2022-0 Yes 10mg QD Take 1 [facility] (PriLOSEC) 5-04 capsule [facility] 10 MG 06:48: (10 mg Medical capsule 17 total) by Center mouth in the morning. ondansetron 2022-0 Yes 4mg Take [address] [facility] (ZOFRAN) 4 5-04 tablet (4 [facility] MG tablet 06:48: mg total) Med ical 17 by mouth Center every 6 (six) hours as needed for Nausea. carvedilol 2022-0 Yes 25mg Take 2 [facility] (COREG) 5-04 tablets [facility] 12.5 MG 06:48: (25 mg Medical tablet 16 total) by Center mouth every 12 (twelve) hours Hold sbp <110, dbp<60, pulse <60. acetaminoph 2023-0 Yes 650mg Take [address] [facility] en 5-04 tablets [facility] (TYLENOL) 06:48: (650 mg Medic al 325 MG 16 total) by Center tablet mouth every 4 (four) hours as needed for Pain. acetylcyste 2023-0 Yes 1mL Take [address] ine 5-04 by [facility] (MUCOMYST) 06:48: nebulizati M edical 100 mg/mL 16 on every Center (10 %) 10% 12 nebulizer (twelve) solution hours. albuterol 3-0 Yes 2.5mg Take 0.[address] [facility] (PROVENTIL) 5-04 mLs (2.5 [facility] 2.5 mg/0.5 06:48: mg total) Me dical mL Nebu 16 by Center nebulizer nebulizati solution on every 12 (twelve) hours. amLODIPine 3-0 Yes 10mg QD Take 1 [facility] ([facility] tablet (10 [facility] 10 MG 06:48: mg total) Medical tablet 16 by mouth Center nightly Hold sbp<110, dbp<60, HR <60. aspirin 81 3-0 Yes 81mg QD Take 1 [facility] chewable 5-04 tablet (81 Eva kes tablet 06:48: mg total) Medica l 16 by mouth Center in the morning. cloNIDine 3-0 Yes .1mg Take [address] [facility] HCL 5-04 tablet [facility] (CATAPRES) 06:48: (0.1 mg Medi michelle 0.1 MG 16 total) by Center tablet mouth every 8 (eight) hours as needed (sbp<150, dbp>90). FERROUS 2023-0 Yes 5mg Take 5 mg [facility] SULFATE [facility]04 [facility] ORAL 06:48: every 12 [facility] 16 (twelve) Center hours Ferrous sulfate 5mg/20ml. Give 5ml every 12 hours. carvedilol 2023-0 Yes 25mg Take 2 [facility] ([facility] 12.5 MG 06:48: (25 mg Medical tablet 16 total) by Center mouth every 12 (twelve) hours Hold sbp <110, dbp<60, pulse <60. acetaminoph 2023-0 Yes 650mg Take [address] [facility]04 [facility] (TYLENOL) 06:48: (650 mg Medic al 325 MG 16 total) by Center tablet mouth every 4 (four) hours as needed for Pain. acetylcyste 2022-0 Yes 1mL Take [address] [facility] ine 5-04 by [facility] (MUCOMYST) 06:48: nebulizati M edical 100 mg/mL 16 on every Center (10 %) 10% 12 nebulizer (twelve) solution hours. albuterol 3-0 Yes 2.5mg Take 0.[address] [facility] (PROVENTIL) 5-04 mLs (2.5 [facility] 2.5 mg/0.5 06:48: mg total) Me dical mL Nebu 16 by Center nebulizer nebulizati solution on every 12 (twelve) hours. amLODIPine 2022-0 Yes 10mg QD Take [facility]NORVASC[facility] tablet (10 [facility] 10 MG 06:48: mg total) Medical tablet 16 by mouth Center nightly Hold sbp<110, dbp<60, HR <60. aspirin 81 2022-0 Yes 81mg QD Take 1 [facility] chewable [facility] tablet (81 [facility] tablet 06:48: mg total) Medica l 16 by mouth Center in the morning. cloNIDine 3-0 Yes .1mg Take [address] [facility] HCL 5-04 tablet [facility] (CATAPRES) 06:48: (0.1 mg Medi michelle 0.1 MG 16 total) by Center tablet mouth every 8 (eight) hours as needed (sbp<150, dbp>90). FERROUS 3-0 Yes 5mg Take 5 mg [facility] SULFATE [facility] ORAL 06:48: every 12 Medical 16 (twelve) Center hours Ferrous sulfate 5mg/20ml. Give 5ml every 12 hours. carvedilol 2023-0 Yes 25mg Take 2 [facility] (COREG[facility] 12.5 MG 06:48: (25 mg Medical tablet 16 total) by Center mouth every 12 (twelve) hours Hold sbp <110, dbp<60, pulse <60. acetaminoph 2023-0 Yes 650mg Take [address] [facility] en 5-04 [facility] (TYLENOL) 06:48: (650 mg Medic al 325 MG 16 total) by Center tablet mouth every 4 (four) hours as needed for Pain. acetylcyste 2023-0 Yes 1mL Take [address] ine 5-04 by [facility] (MUCOMYST) 06:48: nebulizati M edical 100 mg/mL 16 on every Center (10 %) 10% 12 nebulizer (twelve) solution hours. albuterol 2023-0 Yes 2.5mg Take 0.[address] [facility] (PROVENTIL) 5-04 mLs (2.5 [facility] 2.5 mg/0.5 06:48: mg total) Me dical mL Nebu 16 by Center nebulizer nebulizati solution on every 12 (twelve) hours. amLODIPine 2023-0 Yes 10mg QD Take 1 [facility] (NORVASC[facility] 5-[facility] tablet (10 [facility] 10 MG 06:48: mg total) Medical tablet 16 by mouth Center nightly Hold sbp<110, dbp<60, HR <60. aspirin 81 2023-0 Yes 81mg QD Take 1 [facility] chewable 5-[facility] tablet (81 [facility] tablet 06:48: mg total) Medica l 16 by mouth Center in the morning. cloNIDine 2023-0 Yes .1mg Take [address] [facility] HCL 5-04 tablet [facility] (CATAPRES) 06:48: (0.1 mg Medi michelle 0.1 MG 16 total) by Center tablet mouth every 8 (eight) hours as needed (sbp<150, dbp>90). FERROUS 2023-0 Yes 5mg Take 5 mg [facility] SULFATE [facility] ORAL 06:48: every 12 Medical 16 (twelve) Center hours Ferrous sulfate 5mg/20ml. Give 5ml every 12 hours. carvedilol 2023-0 Yes 25mg Take 2 [facility] (COREG[facility] 12.5 MG 07:49: (25 mg Medical tablet 07 total) by Center mouth every 12 (twelve) hours Hold sbp <110, dbp<60, pulse <60. acetaminoph 2023-0 Yes 650mg Take [address] [facility] en 5-03 [facility] (TYLENOL) 07:49: (650 mg Medic al 325 MG 07 total) by Center tablet mouth every 4 (four) hours as needed for Pain. acetylcyste 2023-0 Yes 1mL Take [address] ine 5-03 by [facility] (MUCOMYST) 07:49: nebulizati M edical 100 mg/mL 07 on every Center (10 %) 10% 12 nebulizer (twelve) solution hours. albuterol 2023-0 Yes 2.5mg Take 0.[address] [facility] (PROVENTIL) 5-03 mLs (2.5 [facility] 2.5 mg/0.5 07:49: mg total) Me dical mL Nebu 07 by Center nebulizer nebulizati solution on every 12 (twelve) hours. amLODIPine 2023-0 Yes 10mg QD Take 1 [facility] (NORVASC) 5-[facility] tablet (10 [facility] 10 MG 07:49: mg total) Medical tablet 07 by mouth Center nightly Hold sbp<110, dbp<60, HR <60. aspirin 81 2023-0 Yes 81mg QD Take 1 [facility] che[facility]able 5-03 tablet (81 [facility] tablet 07:49: mg total) Medica l 07 by mouth Center in the morning. budesonide 2023-0 Yes .5mg Take [address] [facility] (PULMICORT) 5-03 (0.5 mg [facility] 0[facility] mg/2 mL 07:49: total) by M edical nebulizer 07 nebulizati Cent er solution on every 12 (twelve) hours. cloNIDine 2023-0 Yes .1mg Take [address] [facility] HCL 5-03 tablet [facility] (CATAPRES) 07:49: (0.1 mg Medi michelle 0.1 MG 07 total) by Center tablet mouth every 8 (eight) hours as needed (sbp<150, dbp>90). lactulose 2023-0 Yes 20g Take 30 [facility] (CHRONULAC[facility] 5-03 mLs (20 g [facility] 10 gram/15 07:49: total) by Ms dical mL (15 mL) 07 mouth Center solution every 6 (six) hours as needed (constipat ion). escitalopra 2023-0 Yes 10mg QD Take [address] [facility] oxalate 5-03 tablet (10 [facility] (LEXAPRO) 07:49: mg total) Med ical 10 MG 07 by mouth Center tablet in the morning. FERROUS 2023-0 Yes 5mg Take 5 mg [facility] SULFATE 5-03 [facility] 07:[facility]: every 12 Medical 07 (twelve) Center hours Ferrous sulfate 5mg/20ml. Give 5ml every 12 hours. tamsulosin 2022-0 Yes .4mg QD Take 1 [facility] (FLOMAX[facility] 5-03 capsule [facility] 0.4 mg Cap 07:49: (0.4 mg Medi michelle 24 hr 07 total) by Center capsule mouth nightly. hydrALAZINE 2022-0 Yes 10mg [id number] Take [address] [facility] (APRESOLINE 5-03 [id number] tablet (10 [facility] ) 10 MG 07:49: 3D mg total) Medic al tablet 07 by mouth Center in the morning and 1 tablet (10 mg total) at noon and 1 tablet (10 mg total) in the evening. hydrOXYzine 2022-0 Yes 10mg Take [address] [facility] (ATARAX) 10 5-03 tablet (10 [facility] MG tablet 07:49: mg total) Med ical 07 by mouth Center every 8 (eight) hours as needed for Itching (pruritus) . insulin 0 Yes 29U Inject 29 [facility] glargine [facility] (LANTUS, 07:49: subcutaneo Med ical SEMGLEE) 07 usly every Cente r 100 unit/mL 12 injection (twelve) hours Use as directed. insulin [address] [facility] lispro 5-03 subcutaneo [facility] (HumaLOG) 07:49: usly every Me dical 100 unit/mL 07 6 (six) Cente r injection hours Per sliding scale. ipratropium 2022-0 Yes .5mg Take 2.[address] [facility] [address] [facility] (ATROVENT) 5-03 mLs (0.5 [facility] 0.02 % 07:49: mg total) Medica l nebulizer 07 by Center solution nebulizati on every 12 (twelve) hours. levothyroxi 2022-0 Yes 25ug Take [address] [facility] ne 5-03 tablet (25 [facility] (SYNTHROID, 07:49: mcg total) Medical LEVOTHROID) 07 by mouth Cent er 25 MCG Every tablet morning on an empty stomach. lidocaine 2022-0 Yes 1{patch Place [address] [facility] (LIDODERM) 5-03 } patch onto [facility] 5 % patch 07:49: the skin Medi michelle 07 every 12 Center (twelve) hours Remove & Discard patch within 12 hours or as directed by . nystatin 3-0 Yes [id number] Take [address] [facility] (MYCOSTATIN 5-03 (500,000 [facility] ) 100,000 07:49: Units Medical unit/mL 07 total) by Center suspension mouth every 12 (twelve) hours For redness related to candidiasi s of skin and nail. omeprazole 3-0 Yes 10mg QD Take 1 [facility] (PriLOSEC) 5-03 capsule [facility] 10 MG 07:49: (10 mg Medical capsule 07 total) by Center mouth in the morning. ondansetron 2022-0 Yes 4mg Take [address] [facility] (ZOFRAN) 4 5-03 tablet (4 [facility] MG tablet 07:49: mg total) Med ical 07 by mouth Center every 6 (six) hours as needed for Nausea. carvedilol 2022-0 Yes 25mg Take 2 [facility] (COREG[facility] 12.5 MG 07:49: (25 mg Medical tablet 07 total) by Center mouth every 12 (twelve) hours Hold sbp <110, dbp<60, pulse <60. acetaminoph 2022-0 Yes 650mg Take [address] [facility] en 5-03 [facility] (TYLENOL) 07:49: (650 mg Medic al 325 MG 07 total) by Center tablet mouth every 4 (four) hours as needed for Pain. acetylcyste 2022-0 Yes 1mL Take [address] in[facility] 5-03 by [facility] (MUCOMYST) 07:49: nebulizati M edical 100 mg/mL 07 on every Center (10 %) 10% 12 nebulizer (twelve) solution hours. albuterol 2022-0 Yes 2.5mg Take 0.[address] [facility] (PROVENTIL) 5-03 mLs (2.5 [facility] 2.5 mg/0.5 07:49: mg total) Me dical mL Nebu 07 by Center nebulizer nebulizati solution on every 12 (twelve) hours. amLODIPine 3-0 Yes 10mg QD Take 1 [facility] (NORVASC) 5-[facility] tablet (10 [facility] 10 MG 07:49: mg total) Medical tablet 07 by mouth Center nightly Hold sbp<110, dbp<60, HR <60. aspirin 81 2023-0 Yes 81mg QD Take 1 [facility] chewable 5-03 tablet (81 [facility] tablet 07:49: mg total) Medica l 07 by mouth Center in the morning. budesonide 2023-0 Yes .5mg Take [address] [facility] (PULMICORT) 5-03 (0.5 mg [facility] 0[facility] mg/2 mL 07:49: total) by edical nebulizer 07 nebulizati Cent er solution on every 12 (twelve) hours. cloNIDine 2023-0 Yes .1mg Take [address] [facility] HCL 5-03 tablet [facility] (CATAPRES) 07:49: (0.1 mg Medi michelle 0.1 MG 07 total) by Center tablet mouth every 8 (eight) hours as needed (sbp<150, dbp>90). lactulose 2023-0 Yes 20g Take 30 [facility] (CHRONULAC) 5-03 mLs (20 g [facility] 10 gram/15 07:49: total) by Ms dical mL (15 mL) 07 mouth Center solution every 6 (six) hours as needed (constipat ion). escitalopra 2023-0 Yes 10mg QD Take [address] [facility] oxalate 5-03 tablet (10 [facility] (LEXAPRO) 07:49: mg total) Med ical 10 MG 07 by mouth Center tablet in the morning. FERROUS 2023-0 Yes 5mg Take 5 mg [facility] SULFATE [facility]AL 07:49: every 12 Medical 07 (twelve) Center hours Ferrous sulfate 5mg/20ml. Give 5ml every 12 hours. tamsulosin 2023-0 Yes .4mg QD Take 1 [facility] (FLOMAX) 5-03 capsule [facility] 0.4 mg Cap 07:49: (0.4 mg Medi michelle 24 hr 07 total) by Center capsule mouth nightly. hydrALAZINE 2023-0 Yes 10mg [id number] Take [address] [facility] (APRESOLINE 5-03 [id number] tablet (10 [facility] ) 10 MG 07:49: 3D mg total) Medic al tablet 07 by mouth Center in the morning and 1 tablet (10 mg total) at noon and 1 tablet (10 mg total) in the evening. hydrOXYzine 2023-0 Yes 10mg Take [address] [facility] (ATARAX) 10 5-03 tablet (10 [facility] MG tablet 07:49: mg total) Med ical 07 by mouth Center every 8 (eight) hours as needed for Itching (pruritus) . insulin 2022-0 Yes 29U Inject 29 [facility] glargine [facility] (LANTUS, 07:49: subcutaneo Med ical SEMGLEE) 07 usly every Cente r 100 unit/mL 12 injection (twelve) hours Use as directed. insulin 2022-[address] [facility] lispro 5-03 subcutaneo [facility] (HumaLOG) 07:49: usly every Me dical 100 unit/mL 07 6 (six) Cente r injection hours Per sliding scale. ipratropium 0 Yes .5mg Take 2.[address] [facility] [address] [facility] (ATROVENT) 5-03 mLs (0.5 [facility] 0.02 % 07:49: mg total) Medica l nebulizer 07 by Center solution nebulizati on every 12 (twelve) hours. levothyroxi 0 Yes 25ug Take [address] [facility] ne 5-03 tablet (25 [facility] (SYNTHROID, 07:49: mcg total) Medical LEVOTHROID) 07 by mouth Cent er 25 MCG Every tablet morning on an empty stomach. lidocaine 0 Yes 1{patch Place [address] [facility] (LIDODERM) 5-03 } patch onto [facility] 5 % patch 07:49: the skin Medi michelle 07 every 12 Center (twelve) hours Remove & Discard patch within 12 hours or as directed by . nystatin 0 Yes [id number] Take [address] [facility] (MYCOSTATIN 5-03 (500,000 [facility] ) 100,000 07:49: Units Medical unit/mL 07 total) by Center suspension mouth every 12 (twelve) hours For redness related to candidiasi s of skin and nail. omeprazole 2022-0 Yes 10mg QD Take 1 [facility] (PriLOSEC) 5-03 capsule [facility] 10 MG 07:49: (10 mg Medical capsule 07 total) by Center mouth in the morning. ondansetron 2022-0 Yes 4mg Take [address] [facility] (ZOFRAN) 4 5-03 tablet (4 [facility] MG tablet 07:49: mg total) Med ical 07 by mouth Center every 6 (six) hours as needed for Nausea. carvedilol 3-0 Yes 25mg Take 2 [facility] (COREG) [facility] 12.5 MG 07:49: (25 mg Medical tablet 07 total) by Center mouth every 12 (twelve) hours Hold sbp <110, dbp<60, pulse <60. acetaminoph 3-0 Yes 650mg Take [address] [facility] en 5-03 tablets [facility] (TYLENOL) 07:49: (650 mg Medic al 325 MG 07 total) by Center tablet mouth every 4 (four) hours as needed for Pain. acetylcyste 2022-0 Yes 1mL Take [address] in[facility] 5-03 by [facility] (MUCOMYST) 07:49: nebulizati M edical 100 mg/mL 07 on every Center (10 %) 10% 12 nebulizer (twelve) solution hours. albuterol 2022-0 Yes 2.5mg Take 0.[address] [facility] (PROVENTIL) 5-03 mLs (2.5 [facility] 2.5 mg/0.5 07:49: mg total) Me dical mL Nebu 07 by Center nebulizer nebulizati solution on every 12 (twelve) hours. amLODIPine 2022-0 Yes 10mg QD Take 1 [facility] (NORVASC) 5-03 tablet (10 [facility] 10 MG 07:49: mg total) Medical tablet 07 by mouth Center nightly Hold sbp<110, dbp<60, HR <60. aspirin 81 3-0 Yes 81mg QD Take 1 [facility] chewable 5-03 tablet (81 [facility] tablet 07:49: mg total) Medica l 07 by mouth Center in the morning. budesonide 2022-0 Yes .5mg Take [address] [facility] (PULMICORT) 5-03 (0.5 mg [facility] 0.[facility] mg/2 mL 07:49: total) by M edical nebulizer [address] er solution on every 12 (twelve) hours. cloNIDine 3-0 Yes .1mg Take [address] [facility] HCL 5-03 tablet [facility] (CATAPRES) 07:49: (0.1 mg Medi michelle 0.1 MG 07 total) by Center tablet mouth every 8 (eight) hours as needed (sbp<150, dbp>90). lactulose 2023-0 Yes 20g Take 30 [facility] (CHRONULAC) 5-03 mLs (20 g [facility] 10 gram/15 07:49: total) by Me dical mL (15 mL) 07 mouth Center solution every 6 (six) hours as needed (constipat ion). escitalopra 2023-0 Yes 10mg QD Take [address] [facility] oxalate 5-03 tablet (10 [facility] (LEXAPRO) 07:49: mg total) Med ical 10 MG 07 by mouth Center tablet in the morning. FERROUS 2023-0 Yes 5mg Take 5 mg [facility] SULFATE 5-03 [facility] 07:49: every 12 Medical 07 (twelve) Center hours Ferrous sulfate 5mg/20ml. Give 5ml every 12 hours. tamsulosin 2023-0 Yes .4mg QD Take 1 [facility] (FLOMAX) 5-03 capsule [facility] 0.4 mg Cap 07:49: (0.4 mg Medi michelle 24 hr 07 total) by Center capsule mouth nightly. hydrALAZINE 2023-0 Yes 10mg Q.[id number] Take [address] [facility] (APRESOLINE 5-03 [id number] tablet (10 [facility] ) 10 MG 07:49: 3D mg total) Medic al tablet 07 by mouth Center in the morning and 1 tablet (10 mg total) at noon and 1 tablet (10 mg total) in the evening. hydrOXYzine 2023-0 Yes 10mg Take [address] [facility] (ATARAX) 10 5-03 tablet (10 [facility] MG tablet 07:49: mg total) Med ical 07 by mouth Center every 8 (eight) hours as needed for Itching (pruritus) . insulin 2022-0 Yes 29U Inject 29 [facility] glargine [facility] (LANTUS, 07:49: subcutaneo Med ical SEMGLEE) 07 usly every Cente r 100 unit/mL 12 injection (twelve) hours Use as directed. insulin 2023-[address] [facility] lispro 5-03 subcutaneo [facility] (HumaLOG) 07:49: usly every Me dical 100 unit/mL 07 6 (six) Cente r injection hours Per sliding scale. ipratropium 2023-0 Yes .5mg Take 2.[address] [facility] [address] [facility] (ATROVENT) 5-03 mLs (0.5 [facility] 0.02 % 07:49: mg total) Medica l nebulizer 07 by Center solution nebulizati on every 12 (twelve) hours. levothyroxi 0 Yes 25ug Take [address] [facility] ne 5-03 tablet (25 [facility] (SYNTHROID, 07:49: mcg total) Medical LEVOTHROID) 07 by mouth Cent er 25 MCG Every tablet morning on an empty stomach. lidocaine 0 Yes 1{patch Place [address] [facility] (LIDODERM) 5-03 } patch onto [facility] 5 % patch 07:49: the skin Medi michelle 07 every 12 Center (twelve) hours Remove & Discard patch within 12 hours or as directed by . nystatin 0 Yes [id number] Take [address] [facility] (MYCOSTATIN 5-03 (500,000 [facility] ) 100,000 07:49: Units Medical unit/mL 07 total) by Center suspension mouth every 12 (twelve) hours For redness related to candidiasi s of skin and nail. omeprazole 0 Yes 10mg QD Take 1 [facility] (PriLOSEC) 5-03 capsule [facility] 10 MG 07:49: (10 mg Medical capsule 07 total) by Center mouth in the morning. ondansetron 0 Yes 4mg Take [address] [facility] (ZOFRAN) 4 5-03 tablet (4 [facility] MG tablet 07:49: mg total) Med ical 07 by mouth Center every 6 (six) hours as needed for Nausea. carvedilol 0 Yes 25mg Take 2 [facility] (COREG) [facility] 12.5 MG 07:49: (25 mg Medical tablet 07 total) by Center mouth every 12 (twelve) hours Hold sbp <110, dbp<60, pulse <60. acetaminoph 0 Yes 650mg Take [address] [facility] en 5-03 tablets [facility] (TYLENOL) 07:49: (650 mg Medic al 325 MG 07 total) by Center tablet mouth every 4 (four) hours as needed for Pain. acetylcyste 0 Yes 1mL Take [address] in[facility] 5-03 by [facility] (MUCOMYST) 07:49: nebulizati M edical 100 mg/mL 07 on every Center (10 %) 10% 12 nebulizer (twelve) solution hours. albuterol 2023-0 Yes 2.5mg Take 0.[address] [facility] (PROVENTIL) 5-03 mLs (2.5 [facility] 2.5 mg/0.5 07:49: mg total) Me dical mL Nebu 07 by Center nebulizer nebulizati solution on every 12 (twelve) hours. amLODIPine 2023-0 Yes 10mg QD Take 1 [facility] (NORVASC) 5-03 tablet (10 [facility] 10 MG 07:49: mg total) Medical tablet 07 by mouth Center nightly Hold sbp<110, dbp<60, HR <60. aspirin 81 3-0 Yes 81mg QD Take [facility] chewable 5-03 tablet (81 [facility] tablet 07:49: mg total) Medica l 07 by mouth Center in the morning. budesonide 2022-0 Yes .5mg Take [address] [facility] (PULMICORT) 5-03 (0.5 mg [facility] 0.[facility] mg/2 mL 07:49: total) by edical nebulizer [address] er solution on every 12 (twelve) hours. cloNIDine 3-0 Yes .1mg Take [address] [facility] HCL 5-03 tablet [facility] (CATAPRES) 07:49: (0.1 mg Medi michelle 0.1 MG 07 total) by Center tablet mouth every 8 (eight) hours as needed (sbp<150, dbp>90). lactulose 2022-0 Yes 20g Take 30 [facility] (CHRONULAC) 5-03 mLs (20 g [facility] 10 gram/15 07:49: total) by Ms dical mL (15 mL) 07 mouth Center solution every 6 (six) hours as needed (constipat ion). escitalopra 2023-0 Yes 10mg QD Take [address] [facility] oxalate 5-03 tablet (10 [facility] (LEXAPRO) 07:49: mg total) Med ical 10 MG 07 by mouth Center tablet in the morning. FERROUS 2023-0 Yes 5mg Take 5 mg [facility] SULFATE 5-03 by [facility] 07:49: every 12 Medical 07 (twelve) Center hours Ferrous sulfate 5mg/20ml. Give 5ml every 12 hours. tamsulosin 0 Yes .4mg QD Take 1 [facility] (FLOMAX) 5-03 capsule [facility] 0.4 mg Cap 07:49: (0.4 mg Medi michelle 24 hr 07 total) by Center capsule mouth nightly. hydrALAZINE 2022-0 Yes 10mg [id number] Take [address] [facility] (APRESOLINE 5-03 [id number] tablet (10 [facility] ) 10 MG 07:49: 3D mg total) Medic al tablet 07 by mouth Center in the morning and 1 tablet (10 mg total) at noon and 1 tablet (10 mg total) in the evening. hydrOXYzine 2022-0 Yes 10mg Take [address] [facility] (ATARAX) 10 5-03 tablet (10 [facility] MG tablet 07:49: mg total) Med ical 07 by mouth Center every 8 (eight) hours as needed for Itching (pruritus) . insulin 0 Yes 29U Inject 29 [facility] glargine [facility] (LANTUS, 07:49: subcutaneo Med ical SEMGLEE) 07 usly every Cente r 100 unit/mL 12 injection (twelve) hours Use as directed. insulin Yes Inject [facility] lispro 5-03 subcutaneo [facility] (HumaLOG) 07:49: usly every Me dical 100 unit/mL 07 6 (six) Cente r injection hours Per sliding scale. ipratropium 0 Yes .5mg Take 2.[address] [facility] [address] [facility] (ATROVENT) 5-03 mLs (0.5 [facility] 0.02 % 07:49: mg total) Medica l nebulizer 07 by Center solution nebulizati on every 12 (twelve) hours. levothyroxi 2022-0 Yes 25ug Take [address] [facility] ne 5-03 tablet (25 [facility] (SYNTHROID, 07:49: mcg total) Medical LEVOTHROID) 07 by mouth Cent er 25 MCG Every tablet morning on an empty stomach. lidocaine 2022-0 Yes 1{patch Place [address] [facility] (LIDODERM) 5-03 } patch onto [facility] 5 % patch 07:49: the skin Medi michelle 07 every 12 Center (twelve) hours Remove & Discard patch within 12 hours or as directed by . nystatin 2022-0 Yes [id number] Take [address] [facility] (MYCOSTATIN 5-03 (500,000 [facility] ) 100,000 07:49: Units Medical unit/mL 07 total) by Center suspension mouth every 12 (twelve) hours For redness related to candidiasi s of skin and nail. omeprazole 2022-0 Yes 10mg QD Take 1 [facility] (PriLOSEC) 5-03 [facility] 10 MG 07:49: (10 mg Medical capsule 07 total) by Center mouth in the morning. ondansetron 2022-0 Yes 4mg Take [address] [facility] (ZOFRAN) 4 5-03 tablet (4 [facility] MG tablet 07:49: mg total) Med ical 07 by mouth Center every 6 (six) hours as needed for Nausea. carvedilol 2022-0 Yes 25mg Take 2 [facility] (COREG) [facility] 12.5 MG 07:49: (25 mg Medical tablet 07 total) by Center mouth every 12 (twelve) hours Hold sbp <110, dbp<60, pulse <60. acetaminoph 2022-0 Yes 650mg Take [address] [facility] en 5-03 tablets [facility] (TYLENOL) 07:49: (650 mg Medic al 325 MG 07 total) by Center tablet mouth every 4 (four) hours as needed for Pain. acetylcyste 2022-0 Yes 1mL Take [address] ine 5-03 by [facility] (MUCOMYST) 07:49: nebulizati M edical 100 mg/mL 07 on every Center (10 %) 10% 12 nebulizer (twelve) solution hours. albuterol 2022-0 Yes 2.5mg Take 0.[address] [facility] (PROVENTIL) 5-03 mLs (2.5 [facility] 2.5 mg/0.5 07:49: mg total) Me dical mL Nebu 07 by Center nebulizer nebulizati solution on every 12 (twelve) hours. amLODIPine 2022-0 Yes 10mg QD Take 1 [facility] (NORVASC) 5-03 tablet (10 [facility] 10 MG 07:49: mg total) Medical tablet 07 by mouth Center nightly Hold sbp<110, dbp<60, HR <60. aspirin 81 3-0 Yes 81mg QD Take 1 [facility] chewable 5-03 tablet (81 [facility] tablet 07:49: mg total) Medica l 07 by mouth Center in the morning. budesonide 2023-0 Yes .5mg Take [address] [facility] (PULMICORT) 5-03 (0.5 mg [facility] 0.[facility] mg/2 mL 07:49: total) by edical nebulizer [address] er solution on every 12 (twelve) hours. cloNIDine 2023-0 Yes .1mg Take [address] [facility] HCL 5-03 tablet [facility] (CATAPRES) 07:49: (0.1 mg Medi michelle 0.1 MG 07 total) by Center tablet mouth every 8 (eight) hours as needed (sbp<150, dbp>90). lactulose 2023-0 Yes 20g Take 30 [facility] (CHRONULAC) 5-03 mLs (20 g [facility] 10 gram/15 07:49: total) by Ms dical mL (15 mL) 07 mouth Center solution every 6 (six) hours as needed (constipat ion). escitalopra 2023-0 Yes 10mg QD Take [address] [facility] oxalate 5-03 tablet (10 [facility] (LEXAPRO) 07:49: mg total) Med ical 10 MG 07 by mouth Center tablet in the morning. FERROUS 2023-0 Yes 5mg Take 5 mg [facility] SULFATE 5-03 by [facility] ORAL 07:49: every 12 Medical 07 (twelve) Center hours Ferrous sulfate 5mg/20ml. Give 5ml every 12 hours. tamsulosin 2023-0 Yes .4mg QD Take 1 [facility] (FLOMAX) 5-03 capsule [facility] 0.4 mg Cap 07:49: (0.4 mg Medi michelle 24 hr 07 total) by Center capsule mouth nightly. hydrALAZINE 2023-0 Yes 10mg Q.[id number] Take [address] [facility] (APRESOLINE 5-03 [id number] tablet (10 [facility] ) 10 MG 07:49: 3D mg total) Medic al tablet 07 by mouth Center in the morning and 1 tablet (10 mg total) at noon and 1 tablet (10 mg total) in the evening. hydrOXYzine 2023-0 Yes 10mg Take [address] [facility] (ATARAX) 10 5-03 tablet (10 [facility] MG tablet 07:49: mg total) Med ical 07 by mouth Center every 8 (eight) hours as needed for Itching (pruritus) . insulin Yes 29U Inject 29 [facility] glargine [facility] (LANTUS, 07:49: subcutaneo Med ical SEMGLEE) 07 usly every Cente r 100 unit/mL 12 injection (twelve) hours Use as directed. insulin Yes Inject [facility] lispro 5-03 subcutaneo [facility] (HumaLOG) 07:49: usly every Me dical 100 unit/mL 07 6 (six) Cente r injection hours Per sliding scale. ipratropium Yes .5mg Take 2.[address] [facility] [address] [facility] (ATROVENT) 5-03 mLs (0.5 [facility] 0.02 % 07:49: mg total) Medica l nebulizer 07 by Center solution nebulizati on every 12 (twelve) hours. levothyroxi Yes 25ug Take [address] [facility] ne 5-03 tablet (25 [facility] (SYNTHROID, 07:49: mcg total) Medical LEVOTHROID) 07 by mouth Cent er 25 MCG Every tablet morning on an empty stomach. lidocaine Yes 1{patch Place [address] [facility] [address] [facility] (LIDODERM) 5-03 } patch onto [facility] 5 % patch 07:49: the skin Medi michelle 07 every 12 Center (twelve) hours Remove & Discard patch within 12 hours or as directed by . nystatin Yes [id number] Take [address] [facility] (MYCOSTATIN 5-03 (500,000 [facility] ) 100,000 07:49: Units Medical unit/mL 07 total) by Center suspension mouth every 12 (twelve) hours For redness related to candidiasi s of skin and nail. omeprazole Yes 10mg QD Take 1 [facility] (PriLOSEC) 5-03 [facility] 10 MG 07:49: (10 mg Medical capsule 07 total) by Center mouth in the morning. ondansetron Yes 4mg Take [address] [facility] (ZOFRAN) 4 5-03 tablet (4 [facility] MG tablet 07:49: mg total) Med ical 07 by mouth Center every 6 (six) hours as needed for Nausea. carvedilol 2023-0 Yes 25mg Take 2 [facility] (COREG) 5-03 [facility] 12.5 MG 07:49: (25 mg Medical tablet 07 total) by Center mouth every 12 (twelve) hours Hold sbp <110, dbp<60, pulse <60. acetaminoph 2022-0 Yes 650mg Take [address] [facility] en 5-03 tablets [facility] (TYLENOL) 07:49: (650 mg Medic al 325 MG 07 total) by Center tablet mouth every 4 (four) hours as needed for Pain. acetylcyste 2022-0 Yes 1mL Take [address] [facility] 5-03 by [facility] (MUCOMYST) 07:49: nebulizati M edical 100 mg/mL 07 on every Center (10 %) 10% 12 nebulizer (twelve) solution hours. albuterol 2022-0 Yes 2.5mg Take 0.[address] [facility] (PROVENTIL) 5-03 mLs (2.5 [facility] 2.5 mg/0.5 07:49: mg total) Me dical mL Nebu 07 by Center nebulizer nebulizati solution on every 12 (twelve) hours. amLODIPine 2022-0 Yes 10mg QD Take 1 [facility] (NORVASC[facility] 5-[facility] tablet (10 [facility] 10 MG 07:49: mg total) Medical tablet 07 by mouth Center nightly Hold sbp<110, dbp<60, HR <60. aspirin 81 2022-0 Yes 81mg QD Take 1 [facility] chewable 5-03 tablet (81 Eva kes tablet 07:49: mg total) Medica l 07 by mouth Center in the morning. budesonide 2022-0 Yes .5mg Take [address] [facility] (PULMICORT) 5-03 (0.5 mg [facility] 0[facility] mg/2 mL 07:49: total) by M edical nebulizer 07 nebulizati [facility] er solution on every 12 (twelve) hours. cloNIDine 2022-0 Yes .1mg Take [address] [facility] HCL 5-03 tablet [facility] (CATAPRES) 07:49: (0.1 mg Medi michelle 0.1 MG 07 total) by Center tablet mouth every 8 (eight) hours as needed (sbp<150, dbp>90). lactulose 2022-0 Yes 20g Take [facility] (CHRONULAC[facility] 5-03 mLs (20 g [facility] 10 gram/15 07:49: total) by Me dical mL (15 mL) 07 mouth Center solution every 6 (six) hours as needed (constipat ion). escitalopra 2023-0 Yes 10mg QD Take [address] [facility] m oxalate 5-03 tablet (10 [facility] (LEXAPRO) 07:49: mg total) Med ical 10 MG 07 by mouth Center tablet in the morning. FERROUS 2023-0 Yes 5mg Take 5 mg [facility] SULFATE [facility]-03 [facility] ORAL 07:49: every 12 Medical 07 (twelve) Center hours Ferrous sulfate 5mg/20ml. Give 5ml every 12 hours. tamsulosin 2023-0 Yes .4mg QD Take [facility] (FLOMAX) 5-03 capsule [facility] 0.4 mg Cap 07:49: (0.4 mg Medi michelle 24 hr 07 total) by Center capsule mouth nightly. hydrALAZINE 2023-0 Yes 10mg [id number] Take [address] [facility] (APRESOLINE 5-03 [id number] tablet (10 [facility] ) 10 MG 07:49: 3D mg total) Medic al tablet 07 by mouth Center in the morning and 1 tablet (10 mg total) at noon and 1 tablet (10 mg total) in the evening. hydrOXYzine 3-0 Yes 10mg Take [address] [facility] (ATARAX) 10 5-03 tablet (10 Eva kes MG tablet 07:49: mg total) Med ical 07 by mouth Center every 8 (eight) hours as needed for Itching (pruritus) . insulin 2022-0 Yes 29U Inject 29 [facility] glargine 5-03 Units [facility] (LANTUS, 07:49: subcutaneo Med ical SEMGLEE) 07 usly every Cente r 100 unit/mL 12 injection (twelve) hours Use as directed. insulin 2023-[address] [facility] lispro 5-03 subcutaneo [facility] (HumaLOG) 07:49: usly every Me dical 100 unit/mL 07 6 (six) Cente r injection hours Per sliding scale. ipratropium 2023-0 Yes .5mg Take 2.[address] [facility] [address] [facility] (ATROVENT) 5-03 mLs (0.5 [facility] 0.02 % 07:49: mg total) Medica l nebulizer 07 by Center solution nebulizati on every 12 (twelve) hours. levothyroxi 2022-0 Yes 25ug Take [address] [facility] ne 5-03 tablet (25 [facility] (SYNTHROID, 07:49: mcg total) Medical LEVOTHROID) 07 by mouth Cent er 25 MCG Every tablet morning on an empty stomach. lidocaine 2022-0 Yes 1{patch Place [address] [facility] (LIDODERM) 5-03 } patch onto [facility] 5 % patch 07:49: the skin Medi michelle 07 every 12 Center (twelve) hours Remove & Discard patch within 12 hours or as directed by . nystatin 0 Yes [id number] Take [address] [facility] (MYCOSTATIN 5-03 (500,000 [facility] ) 100,000 07:49: Units Medical unit/mL 07 total) by Center suspension mouth every 12 (twelve) hours For redness related to candidiasi s of skin and nail. omeprazole 2022-0 Yes 10mg QD Take 1 [facility] (PriLOSEC) 5-03 capsule [facility] 10 MG 07:49: (10 mg Medical capsule 07 total) by Center mouth in the morning. ondansetron 0 Yes 4mg Take [address] [facility] (ZOFRAN) 4 5-03 tablet (4 [facility] MG tablet 07:49: mg total) Med ical 07 by mouth Center every 6 (six) hours as needed for Nausea. carvedilol 0 Yes 25mg Take 2 [facility] (COREG) 5-03 tablets [facility] 12.5 MG 07:49: (25 mg Medical tablet 07 total) by Center mouth every 12 (twelve) hours Hold sbp <110, dbp<60, pulse <60. acetaminoph 2022-0 Yes 650mg Take [address] [facility] en 5-03 tablets [facility] (TYLENOL) 07:49: (650 mg Medic al 325 MG 07 total) by Center tablet mouth every 4 (four) hours as needed for Pain. acetylcyste 2022-0 Yes 1mL Take [address] [facility] ine 5-03 by [facility] (MUCOMYST) 07:49: nebulizati M edical 100 mg/mL 07 on every Center (10 %) 10% 12 nebulizer (twelve) solution hours. albuterol 2023-0 Yes 2.5mg Take 0.[address] [facility] (PROVENTIL) 5-03 mLs (2.5 [facility] 2.5 mg/0.5 07:49: mg total) Me dical mL Nebu 07 by Center nebulizer nebulizati solution on every 12 (twelve) hours. amLODIPine 2023-0 Yes 10mg QD Take 1 [facility] (NORVASC) 5-03 tablet (10 [facility] 10 MG 07:49: mg total) Medical tablet 07 by mouth Center nightly Hold sbp<110, dbp<60, HR <60. aspirin 81 2023-0 Yes 81mg QD Take 1 [facility] chewable 5-03 tablet (81 [facility] k[facility] tablet 07:49: mg total) Medica l 07 by mouth Center in the morning. budesonide 2023-0 Yes .5mg Take [address] [facility] (PULMICORT) 5-03 (0.5 mg [facility] 0.[facility] mg/2 mL 07:49: total) by edical nebulizer [address] er solution on every 12 (twelve) hours. cloNIDine 2023-0 Yes .1mg Take [address] [facility] HCL 5-03 tablet [facility] (CATAPRES) 07:49: (0.1 mg Medi michelle 0.1 MG 07 total) by Center tablet mouth every 8 (eight) hours as needed (sbp<150, dbp>90). lactulose 2023-0 Yes 20g Take 30 [facility] (CHRONULAC) 5-03 mLs (20 g [facility] 10 gram/15 07:49: total) by Ms dical mL (15 mL) 07 mouth Center solution every 6 (six) hours as needed (constipat ion). escitalopra 2023-0 Yes 10mg QD Take [address] [facility] oxalate 5-03 tablet (10 [facility] (LEXAPRO) 07:49: mg total) Med ical 10 MG 07 by mouth Center tablet in the morning. FERROUS 2023-0 Yes 5mg Take 5 mg [facility] SULFATE 5-03 by mouth [facility] ORAL 07:49: every 12 Medical 07 (twelve) Center hours Ferrous sulfate 5mg/20ml. Give 5ml every 12 hours. tamsulosin 2023-0 Yes .4mg QD Take 1 [facility] (FLOMAX) 5-03 capsule [facility] 0.4 mg Cap 07:49: (0.4 mg Medi michelle 24 hr 07 total) by Center capsule mouth nightly. hydrALAZINE 2022-0 Yes 10mg [id number] Take [address] [facility] (APRESOLINE 5-03 [id number] tablet (10 [facility] ) 10 MG 07:49: 3D mg total) Medic al tablet 07 by mouth Center in the morning and 1 tablet (10 mg total) at noon and 1 tablet (10 mg total) in the evening. hydrOXYzine 2022-0 Yes 10mg Take [address] [facility] (ATARAX) 10 5-03 tablet (10 [facility] kes MG tablet 07:49: mg total) Med ical 07 by mouth Center every 8 (eight) hours as needed for Itching (pruritus) . insulin 0 Yes 29U Inject 29 [facility] glargine 5-03 [facility] (LANTUS, 07:49: subcutaneo Med ical SEMGLEE) 07 usly every Cente r 100 unit/mL 12 injection (twelve) hours Use as directed. insulin [address] [facility] lispro 5-03 subcutaneo [facility] (HumaLOG) 07:49: usly every Me dical 100 unit/mL 07 6 (six) Cente r injection hours Per sliding scale. ipratropium 0 Yes .5mg Take 2.[address] [facility] [address] [facility] (ATROVENT) 5-03 mLs (0.5 [facility] 0.02 % 07:49: mg total) Medica l nebulizer 07 by Center solution nebulizati on every 12 (twelve) hours. levothyroxi 2022-0 Yes 25ug Take [address] [facility] ne 5-03 tablet (25 [facility] (SYNTHROID, 07:49: mcg total) Medical LEVOTHROID) 07 by mouth Cent er 25 MCG Every tablet morning on an empty stomach. lidocaine 2022-0 Yes 1{patch Place [address] [facility] (LIDODERM) 5-03 } patch onto [facility] 5 % patch 07:49: the skin Medi michelle 07 every 12 Center (twelve) hours Remove & Discard patch within 12 hours or as directed by . nystatin 2022-0 Yes [id number] Take [address] [facility] (MYCOSTATIN 5-03 (500,000 [facility] ) 100,000 07:49: Units Medical unit/mL 07 total) by Center suspension mouth every 12 (twelve) hours For redness related to candidiasi s of skin and nail. omeprazole 3-0 Yes 10mg QD Take 1 [facility] (PriLOSEC) 5-03 capsule [facility] 10 MG 07:49: (10 mg Medical capsule 07 total) by Center mouth in the morning. ondansetron 2022-0 Yes 4mg Take [address] [facility] (ZOFRAN) 4 5-03 tablet (4 [facility] MG tablet 07:49: mg total) Med ical 07 by mouth Center every 6 (six) hours as needed for Nausea. carvedilol 2022-0 Yes 25mg Take 2 [facility] (COREG) 5-03 tablets [facility] 12.5 MG 07:49: (25 mg Medical tablet 07 total) by Center mouth every 12 (twelve) hours Hold sbp <110, dbp<60, pulse <60. acetaminoph 2022-0 Yes 650mg Take [address] [facility] en 5-03 tablets [facility] (TYLENOL) 07:49: (650 mg Medic al 325 MG 07 total) by Center tablet mouth every 4 (four) hours as needed for Pain. acetylcyste 2022-0 Yes 1mL Take [address] [facility] [address] [facility] ine 5-03 by [facility] (MUCOMYST) 07:49: nebulizati M edical 100 mg/mL 07 on every Center (10 %) 10% 12 nebulizer (twelve) solution hours. albuterol 2022-0 Yes 2.5mg Take 0.[address] [facility] (PROVENTIL) 5-03 mLs (2.5 [facility] 2.5 mg/0.5 07:49: mg total) Me dical mL Nebu 07 by Center nebulizer nebulizati solution on every 12 (twelve) hours. amLODIPine 3-0 Yes 10mg QD Take 1 [facility] (NORVASC) 5-03 tablet (10 [facility] 10 MG 07:49: mg total) Medical tablet 07 by mouth Center nightly Hold sbp<110, dbp<60, HR <60. aspirin 81 2023-0 Yes 81mg QD Take 1 [facility] chewable 5-03 tablet (81 [facility] tablet 07:49: mg total) Medica l 07 by mouth Center in the morning. budesonide 2023-0 Yes .5mg Take [address] [facility] (PULMICORT) 5-03 (0.5 mg [facility] 0.5 mg/2 mL 07:49: total) by edical nebulizer [address]buliz[address] Cent er solution on every 12 (twelve) hours. cloNIDine 2023-0 Yes .1mg Take [address] [facility] HCL 5-03 tablet [facility] (CATAPRES) 07:49: (0.1 mg Medi michelle 0.1 MG 07 total) by Center tablet mouth every 8 (eight) hours as needed (sbp<150, dbp>90). lactulose 2023-0 Yes 20g Take 30 [facility] (CHRONULAC) 5-03 mLs (20 g [facility] 10 gram/15 07:49: total) by Ms dical mL (15 mL) 07 mouth Center solution every 6 (six) hours as needed (constipat ion). escitalopra 2023-0 Yes 10mg QD Take [address] [facility] m oxalate 5-03 tablet (10 [facility] (LEXAPRO) 07:49: mg total) Med ical 10 MG 07 by mouth Center tablet in the morning. FERROUS 2023-0 Yes 5mg Take 5 mg [facility] SULFATE 5-03 by mouth [facility] ORAL 07:49: every 12 Medical 07 (twelve) Center hours Ferrous sulfate 5mg/20ml. Give 5ml every 12 hours. tamsulosin 2023-0 Yes .4mg QD Take [facility] (FLOMAX) 5-03 capsule [facility] 0.4 mg Cap 07:49: (0.4 mg Medi michelle 24 hr 07 total) by Center capsule mouth nightly. hydrALAZINE 2023-0 Yes 10mg [id number] Take [address] [facility] (APRESOLINE 5-03 [id number] tablet (10 [facility] ) 10 MG 07:49: 3D mg total) Medic al tablet 07 by mouth Center in the morning and 1 tablet (10 mg total) at noon and 1 tablet (10 mg total) in the evening. hydrOXYzine 2023-0 Yes 10mg Take [address] [facility] (ATARAX) 10 5-03 tablet (10 Eva kes MG tablet 07:49: mg total) Med ical 07 by mouth Center every 8 (eight) hours as needed for Itching (pruritus) . insulin Yes 29U Inject 29 [facility] glargine 5-03 Units [facility] (LANTUS, 07:49: subcutaneo Med ical SEMGLEE) 07 usly every Cente r 100 unit/mL 12 injection (twelve) hours Use as directed. insulin Yes Inject [facility] lispro 5-03 subcutaneo [facility] (HumaLOG) 07:49: usly every Me dical 100 unit/mL 07 6 (six) Cente r injection hours Per sliding scale. ipratropium Yes .5mg Take 2.[address] [facility] [address] [facility] (ATROVENT) 5-03 mLs (0.5 [facility] 0.02 % 07:49: mg total) Medica l nebulizer 07 by Center solution nebulizati on every 12 (twelve) hours. levothyroxi Yes 25ug Take [address] [facility] ne 5-03 tablet (25 [facility] (SYNTHROID, 07:49: mcg total) Medical LEVOTHROID) 07 by mouth Cent er 25 MCG Every tablet morning on an empty stomach. lidocaine Yes 1{patch Place [address] [facility] [address] [facility] (LIDODERM) 5-03 } patch onto [facility] 5 % patch 07:49: the skin Medi michelle 07 every 12 Center (twelve) hours Remove & Discard patch within 12 hours or as directed by . nystatin Yes [id number] Take [address] [facility] (MYCOSTATIN 5-03 (500,000 [facility] ) 100,000 07:49: Units Medical unit/mL 07 total) by Center suspension mouth every 12 (twelve) hours For redness related to candidiasi s of skin and nail. omeprazole Yes 10mg QD Take 1 [facility] (PriLOSEC) 5-03 capsule [facility] 10 MG 07:49: (10 mg Medical capsule 07 total) by Center mouth in the morning. ondansetron 0 Yes 4mg Take [address] [facility] (ZOFRAN) 4 5-03 tablet (4 [facility] MG tablet 07:49: mg total) Med ical 07 by mouth Center every 6 (six) hours as needed for Nausea. telmisartan 2022-0 2023- No 1{tbl} QD Take [address] [facility] -hydrochlor 5-03 05-03 tablet by Eva phipps othiazide 05:41: 00:00 mouth Medica l (MICARDIS 12 :00 daily. Center HCT) 40-12.5 mg per tablet telmisartan 2022- No 1{tbl} QD Take [address] [facility] -hydrochlor 5-03 05-03 tablet by Eva tays othiazide 05:41: 00:00 mouth Medica l (MICARDIS 12 :00 daily. Center HCT) 40-12.5 mg per tablet telmisartan 2022- No 1{tbl} QD Take [address] -hydrochlor 5-03 05-03 tablet by [facility] phipp[facility] othiazide 05:41: 00:00 mouth Medica l (MICARDIS 12 :00 daily. Center HCT) 40-12.5 mg per tablet telmisartan 2022- No 1{tbl} QD Take [address] -hydrochlor 5-03 05-03 tablet by [facility] phipp[facility] othiazide 05:41: 00:00 mouth Medica l (MICARDIS 12 :00 daily. Center HCT) 40-12.5 mg per tablet telmisartan 2022- No 1{tbl} QD Take [address] -hydrochlor 5-03 05-03 tablet by Eva phipps othiazide 05:41: 00:00 mouth Medica l (MICARDIS 12 :00 daily. Center HCT) 40-12.5 mg per tablet telmisartan 2022- No 1{tbl} QD Take [address] -hydrochlor 5-03 05-03 tablet by Eva phipp[facility] othiazide 05:41: 00:00 mouth Medica l (MICARDIS 12 :00 daily. [place] HCT) 40-12.5 mg per tablet telmisartan 2022- No 1{tbl} QD Take [address] -hydrochlor 5-03 05-03 tablet by Eva phipp[facility] othiazide 05:41: 00:00 mouth Medica l (MICARDIS 12 :00 daily. [place] HCT) 40-12.5 mg per tablet telmisartan 2022- No 1{tbl} QD Take [address] -hydrochlor 5-03 05-03 tablet by Eva phipp[facility] othiazide 05:41: 00:00 mouth Medica l (MICARDIS 12 :00 daily. Center HCT) 40-12.5 mg per tablet telmisartan 2022- No 1{tbl} QD Take [address] -hydrochlor 5-03 05-03 tablet by Eva phipps othiazide 05:41: 00:00 mouth Medica l (MICARDIS 12 :00 daily. Center HCT) 40-12.5 mg per tablet telmisartan 2022- No 1{tbl} QD Take [address] -hydrochlor 5-03 05-03 tablet by Eva phipp[facility] othiazide 05:41: 00:00 mouth Medica l (MICARDIS 12 :00 daily. [place] HCT) 40-12.5 mg per tablet telmisartan 2022- No 1{tbl} QD Take [address] -hydrochlor 5-03 05-03 tablet by Eva phipps othiazide 05:41: 00:00 mouth Medica l (MICARDIS 12 :00 daily. Center HCT) 40-12.5 mg per tablet telmisartan 2022- No 1{tbl} QD Take [address] -hydrochlor 5-03 05-03 tablet by Eva phipps othiazide 05:41: 00:00 mouth Medica l (MICARDIS 12 :00 daily. Center HCT) 40-12.5 mg per tablet telmisartan 2022- No 1{tbl} QD Take [address] -hydrochlor 5-03 05-03 tablet by Eva phipps othiazide 05:41: 00:00 mouth Medica l (MICARDIS 12 :00 daily. Center HCT) 40-12.5 mg per tablet telmisartan 2022- No 1{tbl} QD Take [address] -hydrochlor 5-03 05-03 tablet by Eva phipps othiazide 05:41: 00:00 mouth Medica l (MICARDIS 12 :00 daily. [place] HCT) 40-12.5 mg per tablet telmisartan 2022- No 1{tbl} QD Take [address] -hydrochlor 5-03 05-03 tablet by [facility]ipp[facility] othiazide 05:41: 00:00 mouth Medica l (MICARDIS 12 :00 daily. Center HCT) 40-12.5 mg per tablet telmisartan 2022- No 1{tbl} QD Take [address] -hydrochlor 5-03 05-03 tablet by Eva phipps othiazide 05:41: 00:00 mouth Medica l (MICARDIS 12 :00 daily. Center HCT) 40-12.5 mg per tablet telmisartan 2022- No 1{tbl} QD Take [address] -hydrochlor 5-03 05-03 tablet by Eva phipps othiazide 05:41: 00:00 mouth Medica l (MICARDIS 12 :00 daily. Center HCT) 40-12.5 mg per tablet telmisartan 2022- No 1{tbl} QD Take [address] -hydrochlor 5-03 05-03 tablet by Eva phipps othiazide 05:41: 00:00 mouth Medica l (MICARDIS 12 :00 daily. Center HCT) 40-12.5 mg per tablet telmisartan 2022- No 1{tbl} QD Take [address] -hydrochlor 5-03 05-03 tablet by [facility] phipp[facility] othiazide 05:41: 00:00 mouth Medica l (MICARDIS 12 :00 daily. Center HCT) 40-12.5 mg per tablet telmisartan 2022- No 1{tbl} QD Take [address] -hydrochlor 5-03 05-03 tablet by [facility] phipps othiazide 05:41: 00:00 mouth Medica l (MICARDIS 12 :00 daily. Center HCT) 40-12.5 mg per tablet telmisartan 2022- No 1{tbl} QD Take [address] -hydrochlor 5-03 05-03 tablet by Eva phipps othiazide 05:41: 00:00 mouth Medica l (MICARDIS 12 :00 daily. Center HCT) 40-12.5 mg per tablet telmisartan 2022- No 1{tbl} QD Take [address] -hydrochlor 5-03 05-03 tablet by Eva phipps othiazide 05:41: 00:00 mouth Medica l (MICARDIS 12 :00 daily. Center HCT) 40-12.5 mg per tablet telmisartan 2022- No 1{tbl} QD Take [address] -hydrochlor 5-03 05-03 tablet by [facility] phipp[facility] othiazide 05:41: 00:00 mouth Medica l (MICARDIS 12 :00 daily. Center HCT) 40-12.5 mg per tablet telmisartan 2022- No 1{tbl} QD Take [address] -hydrochlor 5-03 05-03 tablet by Eva phipps othiazide 05:41: 00:00 mouth Medica l (MICARDIS 12 :00 daily. Center HCT) 40-12.5 mg per tablet telmisartan 2022- No 1{tbl} QD Take [address] -hydrochlor 5-03 05-03 tablet by Eva phipps othiazide 05:41: 00:00 mouth Medica l (MICARDIS 12 :00 daily. Center HCT) 40-12.5 mg per tablet telmisartan 2022- No 1{tbl} QD Take [address] -hydrochlor 5-03 05-03 tablet by Eva phipps othiazide 05:41: 00:00 mouth Medica l (MICARDIS 12 :00 daily. Center HCT) 40-12.5 mg per tablet telmisartan 2022- No 1{tbl} QD Take [address] -hydrochlor 5-03 05-03 tablet by Eva phipps othiazide 05:41: 00:00 mouth Medica l (MICARDIS 12 :00 daily. Center HCT) 40-12.5 mg per tablet telmisartan 2022- No 1{tbl} QD Take [address] -hydrochlor 5-03 05-03 tablet by Eva phipps othiazide 05:41: 00:00 mouth Medica l (MICARDIS 12 :00 daily. Center HCT) 40-12.5 mg per tablet telmisartan 2022- No 1{tbl} QD Take [address] -hydrochlor 5-03 05-03 tablet by Eva kes othiazide 05:41: 00:00 mouth Medica l (MICARDIS 12 :00 daily. [place] HCT) 40-12.5 mg per tablet telmisartan 2022- No 1{tbl} QD Take [address] -hydrochlor 5-03 05-03 tablet by Eva kes othiazide 05:41: 00:00 mouth Medica l (MICARDIS 12 :00 daily. Center HCT) 40-12.5 mg per tablet telmisartan 2022-2022- No 1{tbl} QD Take [address] -hydrochlor 5-03 05-03 tablet by Eva kes othiazide 05:41: 00:00 mouth Medica l (MICARDIS 12 :00 daily. [place] HCT) 40-12.5 mg per tablet telmisartan 2022- No 1{tbl} QD Take [address] -hydrochlor 5-03 05-03 tablet by [facility] othiazide 05:41: 00:00 mouth Medica l (MICARDIS 12 :00 daily. [place] HCT) 40-12.5 mg per tablet telmisartan 2022- No 1{tbl} QD Take [address] -hydrochlor 5-03 05-03 tablet by Eva kes othiazide 05:41: 00:00 mouth Medica l (MICARDIS 12 :00 daily. [place] HCT) 40-12.5 mg per tablet insulin 2022- No 50U Inject [facility] 70/30, 5- 05-03 50-55 [facility] insulin 05:40: 00:00 Units Medical NPH-insulin 11 :00 subcutaneo Ce nter regular, usly 2 (HUMULIN (two) 70/30) 100 times unit/mL daily (70-30) before InPn meals. insulin pen insulin 2022- No 50U Inject [facility] 70/30, 5-03 05-03 50-55 [facility] insulin 05:40: 00:00 Units Medical NPH-insulin 11 :00 subcutaneo Ce nter regular, usly 2 (HUMULIN (two) 70/30) 100 times unit/mL daily (70-30) before InPn meals. insulin pen insulin 2023-0 2023- No 50U Inject [facility] 70/30, 5-03 05-03 50-55 [facility] insulin 05:40: 00:00 Units Medical NPH-insulin 11 :00 subcutaneo Ce nter regular, usly 2 (HUMULIN (two) 70/30) 100 times unit/mL daily (70-30) before InPn meals. insulin pen insulin 2022- No 50U Inject [facility] 70/30, 5-03 05-03 50-55 [facility] insulin 05:40: 00:00 Units Medical NPH-insulin 11 :00 subcutaneo Ce nter regular, usly 2 (HUMULIN (two) 70/30) 100 times unit/mL daily (70-30) before InPn meals. insulin pen insulin 2022- No 50U Inject [facility] 70/30, 5-03 05-03 50-55 [facility] insulin 05:40: 00:00 Units Medical NPH-insulin 11 :00 subcutaneo Ce nter regular, usly 2 (HUMULIN (two) 70/30) 100 times unit/mL daily (70-30) before InPn meals. insulin pen insulin 2022- No 50U Inject [facility] 70/30, 5- 05-03 50-55 [facility] insulin 05:40: 00:00 Units Medical NPH-insulin 11 :00 subcutaneo Ce nter regular, usly 2 (HUMULIN (two) 70/30) 100 times unit/mL daily (70-30) before InPn meals. insulin pen insulin 2022- No 50U Inject [facility] 70/30, 5- 05-03 50-55 [facility] insulin 05:40: 00:00 Units Medical NPH-insulin 11 :00 subcutaneo Ce nter regular, usly 2 (HUMULIN (two) 70/30) 100 times unit/mL daily (70-30) before InPn meals. insulin pen insulin 2022- No 50U Inject [facility] 70/30, 5-03 05-03 50-55 [facility] insulin 05:40: 00:00 Units Medical NPH-insulin 11 :00 subcutaneo Ce nter regular, usly 2 (HUMULIN (two) 70/30) 100 times unit/mL daily (70-30) before InPn meals. insulin pen insulin 2022- No 50U Inject [facility] 70/30, 5- 05-03 50-55 [facility] insulin 05:40: 00:00 Units Medical NPH-insulin 11 :00 subcutaneo Ce nter regular, usly 2 (HUMULIN (two) 70/30) 100 times unit/mL daily (70-30) before InPn meals. insulin pen insulin 2022- No 50U Inject [facility] 70/30, 5- 05-03 50-55 [facility] 05:40: 00:00 Units Medical NPH-insulin 11 :00 subcutaneo Ce nter regular, usly 2 (HUMULIN (two) 70/30) 100 times unit/mL daily (70-30) before InPn meals. insulin pen insulin 2022- No 50U Inject [facility] 70/30, 5- 05-03 50-55 [facility] 05:40: 00:00 Units Medical NPH-insulin 11 :00 subcutaneo Ce nter regular, usly 2 (HUMULIN (two) 70/30) 100 times unit/mL daily (70-30) before InPn meals. insulin pen insulin 2022- No 50U Inject [facility] 70/30, 5- 05-03 50-55 [facility] 05:40: 00:00 Units Medical NPH-insulin 11 :00 subcutaneo Ce nter regular, usly 2 (HUMULIN (two) 70/30) 100 times unit/mL daily (70-30) before InPn meals. insulin pen insulin 2022- No 50U Inject [facility] 70/30, - 05-03 50-55 [facility] 05:40: 00:00 Units Medical NPH-insulin 11 :00 subcutaneo Ce nter regular, usly 2 (HUMULIN (two) 70/30) 100 times unit/mL daily (70-30) before InPn meals. insulin pen insulin 2022- No 50U Inject [facility] 70/30, 5- 05-03 50-55 [facility] 05:40: 00:00 Units Medical NPH-insulin 11 :00 subcutaneo Ce nter regular, usly 2 (HUMULIN (two) 70/30) 100 times unit/mL daily (70-30) before InPn meals. insulin pen insulin 2022- No 50U Inject [facility] 70/30, 5- 05-03 50-55 [facility] 05:40: 00:00 Units Medical NPH-insulin 11 :00 subcutaneo Ce nter regular, usly 2 (HUMULIN (two) 70/30) 100 times unit/mL daily (70-30) before InPn meals. insulin pen insulin 2022- No 50U Inject [facility] 70/30, 5- 05-03 50-55 [facility] 05:40: 00:00 Units Medical NPH-insulin 11 :00 subcutaneo Ce nter regular, usly 2 (HUMULIN (two) 70/30) 100 times unit/mL daily (70-30) before InPn meals. insulin pen insulin 2022- No 50U Inject [facility] 70/30, 5- 05-03 50-55 [facility] 05:40: 00:00 Units Medical NPH-insulin 11 :00 subcutaneo Ce nter regular, usly 2 (HUMULIN (two) 70/30) 100 times unit/mL daily (70-30) before InPn meals. insulin pen insulin 2022- No 50U Inject [facility] 70/30, - 05-03 50-55 [facility] 05:40: 00:00 Units Medical NPH-insulin 11 :00 subcutaneo Ce nter regular, usly 2 (HUMULIN (two) 70/30) 100 times unit/mL daily (70-30) before InPn meals. insulin pen insulin 2022- No 50U Inject [facility] 70/30, 5- 05-03 50-55 [facility] 05:40: 00:00 Units Medical NPH-insulin 11 :00 subcutaneo Ce nter regular, usly 2 (HUMULIN (two) 70/30) 100 times unit/mL daily (70-30) before InPn meals. insulin pen insulin 2022- No 50U Inject [facility] 70/30, 5- 05-03 50-55 [facility] 05:40: 00:00 Units Medical NPH-insulin 11 :00 subcutaneo Ce nter regular, usly 2 (HUMULIN (two) 70/30) 100 times unit/mL daily (70-30) before InPn meals. insulin pen insulin 2022- No 50U Inject [facility] 70/30, 5-03 05-03 50-55 [facility] 05:40: 00:00 Units Medical NPH-insulin 11 :00 subcutaneo Ce nter regular, usly 2 (HUMULIN (two) 70/30) 100 times unit/mL daily (70-30) before InPn meals. insulin pen insulin 2022- No 50U Inject [facility] 70/30, 5-03 05-03 50-55 [facility] 05:40: 00:00 Units Medical NPH-insulin 11 :00 subcutaneo Ce nter regular, usly 2 (HUMULIN (two) 70/30) 100 times unit/mL daily (70-30) before InPn meals. insulin pen insulin 2022- No 50U Inject [facility] 70/30, 5-03 05-03 50-55 [facility] 05:40: 00:00 Units Medical NPH-insulin 11 :00 subcutaneo Ce nter regular, usly 2 (HUMULIN (two) 70/30) 100 times unit/mL daily (70-30) before InPn meals. insulin pen insulin 2022- No 50U Inject [facility] 70/30, 5-03 05-03 50-55 [facility] 05:40: 00:00 [facility]-insulin 11 :00 subcutaneo Ce nter regular, usly 2 (HUMULIN (two) 70/30) 100 times unit/mL daily (70-30) before InPn meals. insulin pen insulin 2022- No 50U Inject [facility] 70/30, 5-03 05-03 50-55 [facility] 05:40: 00:00 [facility] 11 :00 subcutaneo Ce nter regular, usly 2 (HUMULIN (two) 70/30) 100 times unit/mL daily (70-30) before InPn meals. insulin pen insulin 2022- No 50U Inject [facility] 70/30, 5-03 05-03 50-55 [facility] 05:40: 00:00 [facility] 11 :00 subcutaneo Ce nter regular, usly 2 (HUMULIN (two) 70/30) 100 times unit/mL daily (70-30) before InPn meals. insulin pen insulin 2022- No 50U Inject [facility] 70/30, 5-03 05-03 50-55 [facility] 05:40: 00:00 [facility] 11 :00 subcutaneo Ce nter regular, usly 2 (HUMULIN (two) 70/30) 100 times unit/mL daily (70-30) before InPn meals. insulin pen insulin 2022- No 50U Inject [facility] 70/30, 5-03 05-03 50-55 [facility] 05:40: 00:00 [facility] 11 :00 subcutaneo Ce nter regular, usly 2 (HUMULIN (two) 70/30) 100 times unit/mL daily (70-30) before InPn meals. insulin pen insulin 2022- No 50U Inject [facility] 70/30, 5-03 05-03 50-[facility] insulin 05:40: 00:00 Units Medical NPH-insulin 11 :00 subcutaneo Ce nter regular, usly 2 (HUMULIN (two) 70/30) 100 times unit/mL daily (70-30) before InPn meals. insulin pen insulin 2022- No 50U Inject [facility] 70/30, 5-03 05-03 50-55 [facility] 05:40: 00:00 Units Medical NPH-insulin 11 :00 subcutaneo Ce nter regular, usly 2 (HUMULIN (two) 70/30) 100 times unit/mL daily (70-30) before InPn meals. insulin pen insulin 2022- No 50U Inject [facility] 70/30, 5-03 05-03 50-55 [facility] 05:40: 00:00 Units Medical NPH-insulin 11 :00 subcutaneo Ce nter regular, usly 2 (HUMULIN (two) 70/30) 100 times unit/mL daily (70-30) before InPn meals. insulin pen insulin 2022- No 50U Inject [facility] 70/30, 5-03 05-03 50-55 [facility] 05:40: 00:00 Units Medical NPH-insulin 11 :00 subcutaneo Ce nter regular, usly 2 (HUMULIN (two) 70/30) 100 times unit/mL daily (70-30) before InPn meals. insulin pen insulin 0 3- No 50U Inject [facility] 70/30, 5-03 05-03 50-55 [facility] 05:40: 00:00 Units Medical NPH-insulin 11 :00 subcutaneo Ce nter regular, usly 2 (HUMULIN (two) 70/30) 100 times unit/mL daily (70-30) before InPn meals. insulin pen acetaminoph 0 Yes 1{tbl} Take [address] [facility] [address] [facility] en-codeine 5-02 tablet by [facility] (TYLENOL 00:00: mouth Medical #3) 300-30 00 every 8 Center mg per (eight) tablet hours as needed for Pain. acetaminoph 2022-0 Yes 1{tbl} Take [address] [facility] [address] en-codeine 5-02 tablet by [place] [facility] (TYLENOL 00:00: mouth Medical #3) 300-30 00 every 8 Center mg per (eight) tablet hours as needed for Pain. acetaminoph 2022-0 Yes 1{tbl} Take [address] en-codeine 5-02 tablet by [place] [facility] (TYLENOL 00:00: mouth Medical #3) 300-30 00 every 8 Center mg per (eight) tablet hours as needed for Pain. acetaminoph 2022-0 Yes 1{tbl} Take [address] [facility] [address] en-codeine 5-02 tablet by [facility] (TYLENOL 00:00: mouth Medical #3) 300-30 00 every 8 Center mg per (eight) tablet hours as needed for Pain. acetaminoph 2022-0 Yes 1{tbl} Take [address] en-codeine 5-02 tablet by [facility] (TYLENOL 00:00: mouth Medical #3) 300-30 00 every 8 Center mg per (eight) tablet hours as needed for Pain. acetaminoph 2022-0 Yes 1{tbl} Take [address] [facility] [address] en-codeine 5-02 tablet by [facility] (TYLENOL 00:00: mouth Medical #3) 300-30 00 every 8 Center mg per (eight) tablet hours as needed for Pain. acetaminoph 2022-0 Yes 1{tbl} Take [address] en-codeine 5-02 tablet by [facility] (TYLENOL 00:00: mouth Medical #3) 300-30 00 every 8 Center mg per (eight) tablet hours as needed for Pain. acetaminoph 3-0 Yes 1{tbl} Take [address] [facility] [address] en-codeine 5-02 tablet by [facility] (TYLENOL 00:00: mouth Medical #3) 300-30 00 every 8 Center mg per (eight) tablet hours as needed for Pain. acetaminoph 3-0 Yes 1{tbl} Take [address] en-codeine 5-02 tablet by [place] [facility] (TYLENOL 00:00: mouth Medical #3) 300-30 00 every 8 Center mg per (eight) tablet hours as needed for Pain. acetaminoph 3-0 Yes 1{tbl} Take [address] [facility] [address] en-codeine 5-02 tablet by [facility] (TYLENOL 00:00: mouth Medical #3) 300-30 00 every 8 Center mg per (eight) tablet hours as needed for Pain. acetaminoph 3-0 Yes 1{tbl} Take [address] [facility] [address] en-codeine 5-02 tablet by [facility] (TYLENOL 00:00: mouth Medical #3) 300-30 00 every 8 Center mg per (eight) tablet hours as needed for Pain. acetaminoph 3-0 Yes 1{tbl} Take [address] en-codeine 5-02 tablet by [place] [facility] (TYLENOL 00:00: mouth Medical #3) 300-30 00 every 8 Center mg per (eight) tablet hours as needed for Pain. acetaminoph 3-0 Yes 1{tbl} Take [address] [facility] [address] en-codeine 5-02 tablet by [place] [facility] (TYLENOL 00:00: mouth Medical #3) 300-30 00 every 8 Center mg per (eight) tablet hours as needed for Pain. acetaminoph 2023-0 Yes 1{tbl} Take [address] [facility] [address] en-codeine 5-02 tablet by [facility] (TYLENOL 00:00: mouth Medical #3) 300-30 00 every 8 Center mg per (eight) tablet hours as needed for Pain. acetaminoph 2023-0 Yes 1{tbl} Take [address] [facility] [address] en-codeine 5-02 tablet by [place] [facility] (TYLENOL 00:00: mouth Medical #3) 300-30 00 every 8 Center mg per (eight) tablet hours as needed for Pain. acetaminoph 2022-0 Yes 1{tbl} Take [address] [facility] [address] en-codeine 5-02 tablet by [place] (TYLENOL 00:00: mouth Medical #3) 300-30 00 every 8 Center mg per (eight) tablet hours as needed for Pain. acetaminoph 2022-0 Yes 1{tbl} Take [address] [facility] [address] en-codeine 5-02 tablet by [place] [facility] (TYLENOL 00:00: mouth Medical #3) 300-30 00 every 8 Center mg per (eight) tablet hours as needed for Pain. acetaminoph 2022-2022- No 1{tbl} Take [address] en-codeine 5-02 05-11 tablet by [place] [facility] (TYLENOL 00:00: 00:00 mouth Medical #3) 300-30 00 :00 every 8 Center mg per (eight) tablet hours as needed for Pain. acetaminoph 2022- No 1{tbl} Take [address] en-codeine 5-02 05-11 tablet by [place] [facility] (TYLENOL 00:00: 00:00 mouth Medical #3) 300-30 00 :00 every 8 Center mg per (eight) tablet hours as needed for Pain. acetaminoph 2022-2022- No 1{tbl} Take [address] en-codeine 5-02 05-11 tablet by [place] [facility] (TYLENOL 00:00: 00:00 mouth Medical #3) 300-30 00 :00 every 8 Center mg per (eight) tablet hours as needed for Pain. acetaminoph 2022-2022- No 1{tbl} Take [address] en-codeine 5-02 05-11 tablet by [place] [facility] (TYLENOL 00:00: 00:00 mouth Medical #3) 300-30 00 :00 every 8 Center mg per (eight) tablet hours as needed for Pain. acetaminoph 2022-2022- No 1{tbl} Take [address] en-codeine 5-02 05-11 tablet by [place] [facility] (TYLENOL 00:00: 00:00 mouth Medical #3) 300-30 00 :00 every 8 Center mg per (eight) tablet hours as needed for Pain. acetaminoph 2022-2022- No 1{tbl} Take [address] en-codeine 5-02 05-11 tablet by [place] (TYLENOL 00:00: 00:00 mouth Medical #3) 300-30 00 :00 every 8 Center mg per (eight) tablet hours as needed for Pain. acetaminoph 2022-2022- No 1{tbl} Take [address] en-codeine 5-02 05-11 tablet by [place] (TYLENOL 00:00: 00:00 mouth Medical #3) 300-30 00 :00 every 8 Center mg per (eight) tablet hours as needed for Pain. acetaminoph 2022-2022- No 1{tbl} Take [address] en-codeine 5-02 05-11 tablet by [place] (TYLENOL 00:00: 00:00 mouth Medical #3) 300-30 00 :00 every 8 Center mg per (eight) tablet hours as needed for Pain. acetaminoph 2022- No 1{tbl} Take [address] en-codeine 5-02 05-11 tablet by [place] (TYLENOL 00:00: 00:00 mouth Medical #3) 300-30 00 :00 every 8 Center mg per (eight) tablet hours as needed for Pain. acetaminoph 2022-2022- No 1{tbl} Take [address] en-codeine 5-02 05-11 tablet by [place] (TYLENOL 00:00: 00:00 mouth Medical #3) 300-30 00 :00 every 8 Center mg per (eight) tablet hours as needed for Pain. acetaminoph 2022-3- No 1{tbl} Take [address] en-codeine 5-02 05-11 tablet by [place] [facility] (TYLENOL 00:00: 00:00 mouth Medical #3) 300-30 00 :00 every 8 Center mg per (eight) tablet hours as needed for Pain. acetaminoph 2022-3- No 1{tbl} Take [address] en-codeine 5-02 05-11 tablet by [place] [facility] (TYLENOL 00:00: 00:00 mouth Medical #3) 300-30 00 :00 every 8 Center mg per (eight) tablet hours as needed for Pain. acetaminoph 2022-2022- No 1{tbl} Take [address] en-codeine 5-02 05-11 tablet by [place] [facility] (TYLENOL 00:00: 00:00 mouth Medical #3) 300-30 00 :00 every 8 Center mg per (eight) tablet hours as needed for Pain. acetaminoph 2022-2022- No 1{tbl} Take [address] en-codeine 5-02 05-11 tablet by [place] (TYLENOL 00:00: 00:00 mouth Medical #3) 300-30 00 :00 every 8 Center mg per (eight) tablet hours as needed for Pain. acetaminoph 2022-2022- No 1{tbl} Take [address] en-codeine 5-02 05-11 tablet by [place] [facility] (TYLENOL 00:00: 00:00 mouth Medical #3) 300-30 00 :00 every 8 Center mg per (eight) tablet hours as needed for Pain. acetaminoph 2022- No 1{tbl} Take [address] en-codeine 5-02 05-11 tablet by [place] [facility] (TYLENOL 00:00: 00:00 mouth Medical #3) 300-30 00 :00 every 8 Center mg per (eight) tablet hours as needed for Pain. fluconazole 2022-2022- No 50mg QD Take [address] [facility] (DIFLUCAN) 11-23-11 tablet (50 Eva kes 50 MG 00:00: 00:00 mg total) Medica l tablet 00 :00 by mouth Center in the morning. For UTI due to yeast for 7 days. fluconazole 2022-2022- No 50mg QD Take [address] [facility] (DIFLUCAN) - 05-11 tablet (50 Eva kes 50 MG 00:00: 00:00 mg total) Medica l tablet 00 :00 by mouth Center in the morning. For UTI due to yeast for 7 days. fluconazole 2022-2022- No 50mg QD Take [address] [facility] (DIFLUCAN) 11-23 05-11 tablet (50 Eva kes 50 MG 00:00: 00:00 mg total) Medica l tablet 00 :00 by mouth Center in the morning. For UTI due to yeast for 7 days. fluconazole 2023-0 2023- No 50mg QD Take [address] [facility] (DIFLUCAN) 11-23-11 tablet (50 Eva kes 50 MG 00:00: 00:00 mg total) Medica l tablet 00 :00 by mouth Center in the morning. For UTI due to yeast for 7 days. fluconazole 2023-0 2023- No 50mg QD Take [address] [facility] (DIFLUCAN) 11-23-11 tablet (50 Eva kes 50 MG 00:00: 00:00 mg total) Medica l tablet 00 :00 by mouth Center in the morning. For UTI due to yeast for 7 days. fluconazole 2023-0 2023- No 50mg QD Take [address] [facility] (DIFLUCAN) 11-23-11 tablet (50 Eva kes 50 MG 00:00: 00:00 mg total) Medica l tablet 00 :00 by mouth Center in the morning. For UTI due to yeast for 7 days. fluconazole 2023-0 2023- No 50mg QD Take [address] [facility] (DIFLUCAN) 11-23-11 tablet (50 Eva kes 50 MG 00:00: 00:00 mg total) Medica l tablet 00 :00 by mouth Center in the morning. For UTI due to yeast for 7 days. fluconazole 2023-0 2023- No 50mg QD Take [address] [facility] (DIFLUCAN) 11-23-11 tablet (50 Eva kes 50 MG 00:00: 00:00 mg total) Medica l tablet 00 :00 by mouth Center in the morning. For UTI due to yeast for 7 days. fluconazole 2023-0 2023- No 50mg QD Take [address] [facility] (DIFLUCAN) 11-23-11 tablet (50 Eva kes 50 MG 00:00: 00:00 mg total) Medica l tablet 00 :00 by mouth Center in the morning. For UTI due to yeast for 7 days. fluconazole 2023-0 2023- No 50mg QD Take [address] [facility] (DIFLUCAN) 11-23-11 tablet (50 Eva kes 50 MG 00:00: 00:00 mg total) Medica l tablet 00 :00 by mouth Center in the morning. For UTI due to yeast for 7 days. fluconazole 2023-0 2023- No 50mg QD Take [address] [facility] (DIFLUCAN) 11-23-11 tablet (50 Eva kes 50 MG 00:00: 00:00 mg total) Medica l tablet 00 :00 by mouth Center in the morning. For UTI due to yeast for 7 days. fluconazole 2022-0 2023- No 50mg QD Take [address] [facility] (DIFLUCAN) 11-23-11 tablet (50 Eva kes 50 MG 00:00: 00:00 mg total) Medica l tablet 00 :00 by mouth Center in the morning. For UTI due to yeast for 7 days. fluconazole 2022-0 2023- No 50mg QD Take [address] [facility] (DIFLUCAN) 11-23-11 tablet (50 Eva kes 50 MG 00:00: 00:00 mg total) Medica l tablet 00 :00 by mouth Center in the morning. For UTI due to yeast for 7 days. fluconazole 2022-0 2023- No 50mg QD Take [address] [facility] (DIFLUCAN) 11-23-11 tablet (50 Eva kes 50 MG 00:00: 00:00 mg total) Medica l tablet 00 :00 by mouth Center in the morning. For UTI due to yeast for 7 days. fluconazole 2022-0 2023- No 50mg QD Take [address] [facility] (DIFLUCAN) 11-23-11 tablet (50 Eva kes 50 MG 00:00: 00:00 mg total) Medica l tablet 00 :00 by mouth Center in the morning. For UTI due to yeast for 7 days. fluconazole 2022-0 2023- No 50mg QD Take [address] [facility] (DIFLUCAN) 11-23-11 tablet (50 Eva kes 50 MG 00:00: 00:00 mg total) Medica l tablet 00 :00 by mouth Center in the morning. For UTI due to yeast for 7 days. fluconazole 3-0 2023- No 50mg QD Take [address] [facility] (DIFLUCAN) 11-23-04 tablet (50 Eva kes 50 MG 00:00: 23:59 mg total) Medica l tablet 00 :00 by mouth Center in the morning. For UTI due to yeast for 7 days. fluconazole 2022-0 2023- No 50mg QD Take [address] [facility] (DIFLUCAN) 11-23-04 tablet (50 Eva kes 50 MG 00:00: 23:59 mg total) Medica l tablet 00 :00 by mouth Center in the morning. For UTI due to yeast for 7 days. fluconazole 2023-0 2023- No 50mg QD Take [address] [facility] (DIFLUCAN) 11-23 05-04 tablet (50 Eva kes 50 MG 00:00: 23:59 mg total) Medica l tablet 00 :00 by mouth Center in the morning. For UTI due to yeast for 7 days. fluconazole 2023-0 2023- No 50mg QD Take [address] [facility] (DIFLUCAN) 11-23-04 tablet (50 Eva kes 50 MG 00:00: 23:59 mg total) Medica l tablet 00 :00 by mouth Center in the morning. For UTI due to yeast for 7 days. fluconazole 2023-0 2023- No 50mg QD Take [address] [facility] (DIFLUCAN) 11-23-04 tablet (50 Eva kes 50 MG 00:00: 23:59 mg total) Medica l tablet 00 :00 by mouth Center in the morning. For UTI due to yeast for 7 days. fluconazole 3-0 2023- No 50mg QD Take [address] [facility] (DIFLUCAN) 11-23-04 tablet (50 Eva kes 50 MG 00:00: 23:59 mg total) Medica l tablet 00 :00 by mouth Center in the morning. For UTI due to yeast for 7 days. fluconazole 3-0 2023- No 50mg QD Take [address] [facility] (DIFLUCAN) 11-23-04 tablet (50 Eva kes 50 MG 00:00: 23:59 mg total) Medica l tablet 00 :00 by mouth Center in the morning. For UTI due to yeast for 7 days. fluconazole 2023-0 2023- No 50mg QD Take [address] [facility] (DIFLUCAN) 11-23 05-04 tablet (50 Eva kes 50 MG 00:00: 23:59 mg total) Medica l tablet 00 :00 by mouth Center in the morning. For UTI due to yeast for 7 days. fluconazole 2023-0 2023- No 50mg QD Take [address] [facility] (DIFLUCAN) 11-23 05-04 tablet (50 Eva kes 50 MG 00:00: 23:59 mg total) Medica l tablet 00 :00 by mouth Center in the morning. For UTI due to yeast for 7 days. fluconazole 2023-0 2023- No 50mg QD Take [address] [facility] (DIFLUCAN) 11-23-04 tablet (50 Eva kes 50 MG 00:00: 23:59 mg total) Medica l tablet 00 :00 by mouth Center in the morning. For UTI due to yeast for 7 days. fluconazole 2023-0 2023- No 50mg QD Take [address] [facility] (DIFLUCAN) 11-23-04 tablet (50 Eva kes 50 MG 00:00: 23:59 mg total) Medica l tablet 00 :00 by mouth Center in the morning. For UTI due to yeast for 7 days. fluconazole 2023-0 2023- No 50mg QD Take [address] [facility] (DIFLUCAN) 11-23-04 tablet (50 Eva kes 50 MG 00:00: 23:59 mg total) Medica l tablet 00 :00 by mouth Center in the morning. For UTI due to yeast for 7 days. fluconazole 2023-0 2023- No 50mg QD Take [address] [facility] (DIFLUCAN) 11-23-04 tablet (50 Eva kes 50 MG 00:00: 23:59 mg total) Medica l tablet 00 :00 by mouth Center in the morning. For UTI due to yeast for 7 days. fluconazole 2023-0 2023- No 50mg QD Take [address] [facility] (DIFLUCAN) 11-23-04 tablet (50 Eva kes 50 MG 00:00: 23:59 mg total) Medica l tablet 00 :00 by mouth Center in the morning. For UTI due to yeast for 7 days. fluconazole 2023-0 2023- No 50mg QD Take [address] [facility] (DIFLUCAN) 11-23-04 tablet (50 Eva kes 50 MG 00:00: 23:59 mg total) Medica l tablet 00 :00 by mouth Center in the morning. For UTI due to yeast for 7 days. fluconazole 2023-0 2023- No 50mg QD Take [address] [facility] (DIFLUCAN) 11-23-04 tablet (50 Eva kes 50 MG 00:00: 23:59 mg total) Medica l tablet 00 :00 by mouth Center in the morning. For UTI due to yeast for 7 days. fluconazole 2023-0 2023- No 50mg QD Take [address] [facility] (DIFLUCAN) 4-26 05-04 tablet (50 Eva kes 50 MG 00:00: 23:59 mg total) Medica l tablet 00 :00 by mouth Center in the morning. For UTI due to yeast for 7 days. folic 2022-0 Yes 1{tbl} Take 1 [facility] acid/vit B 2-06 tablet by ity of [facility] and 19:34: mouth [place] C 08 daily. Medical (DIALYVITE Branch 800 ORAL) tamsulosin 2022-0 Yes .4mg Take 0.4 Uni vers 0.4 mg 24 2-06 mg by ity of hr capsule 19:34: mouth at [place] [facility] as 08 bedtime. Medical Branch sennosides 0 Yes 8.6mg Take 8.6 Un kraig 8.6 mg 2-06 mg by ity of tablet 19:34: mouth in [place] 08 the Medical morning Branch and 8.6 mg in the evening. escitalopra Yes 10mg Take 10 mg Univers m oxalate 2-06 by mouth ity of 10 mg 19:34: in the [facility] 08 morning. Medical Branch ondansetron 0 Yes 4mg Take 4 mg U nivers 4 mg tablet 2-06 by mouth ity of 19:34: every 8 [place] [id number] (eight) Medical hours as Branch needed for Nausea and Vomiting (N/V). aspirin 81 0 Yes 81mg Take 81 mg U nivers mg EC 2-06 by mouth ity of tablet 19:34: in the [place] 08 morning. Medical Branch metoclopram 0 Yes 10mg Take 10 mg Univers bebo HCl 10 2-06 by mouth ity o f mg tablet 19:34: every 8 [place] [address] (eight) Medical hours as Branch needed for Nausea and Vomiting (N/V). insulin 2022-0 Yes 30U inject 30 Unive rs glargine,hu 2-06 Units ity of m.rec.anlog 19:34: under the [place] (BASAGLAR 08 skin every [facility] KWIKPEN 12 Branch U-100 (twelve) INSULIN SC) hours. Hold PM dose if BG <150 omeprazole 2022-0 Yes 10mg Take 10 mg U nivers (PRILOSEC) 2-06 by mouth ity o f 2 mg/mL 19:34: daily. [place] oral 08 Medical suspension Branch Wound 0 Yes 1{squir Apply 1 Univer s Dressings 2-06 t} Squirt to ity o f (TRIAD 19:34: area(s) as [place] WOUND 08 needed for Medical DRESSING) Other Branch Pste (wound). folic 0 Yes 1{tbl} Take 1 [facility] acid/vit B 2-06 tablet by ity of complex and 19:34: mouth [place] C 08 daily. Medical (DIALYVITE Branch 800 ORAL) tamsulosin 0 Yes .4mg Take 0.4 Uni vers 0.4 mg 24 2-06 mg by ity of hr capsule 19:34: mouth at [place] as 08 bedtime. Medical Branch sennosides Yes 8.6mg Take 8.6 Un kraig 8.6 mg 2-06 mg by ity of tablet 19:34: mouth in [place] 08 the Medical morning Branch and 8.6 mg in the evening. escitalopra Yes 10mg Take 10 mg Univers m oxalate 2-06 by mouth ity of 10 mg 19:34: in the [facility] 08 morning. Medical Branch ondansetron Yes 4mg Take 4 mg U nivers 4 mg tablet 2-06 by mouth ity of 19:34: every 8 [place] [address] (eight) Medical hours as Branch needed for Nausea and Vomiting (N/V). aspirin 81 0 Yes 81mg Take 81 mg U nivers mg EC 2-06 by mouth ity of tablet 19:34: in the [place] 08 morning. Medical Branch metoclopram Yes 10mg Take 10 mg Univers bebo HCl 10 2-06 by mouth ity o f mg tablet 19:34: every 8 [place] 08 (eight) Medical hours as Branch needed for Nausea and Vomiting (N/V). insulin 0 Yes 30U inject 30 Unive rs glargine,hu 2-06 Units ity of m.rec.anlog 19:34: under the [place] (BASAGLAR 08 skin every Medi michelle KWIKPEN 12 Branch U-100 (twelve) INSULIN SC) hours. Hold PM dose if BG <150 omeprazole 0 Yes 10mg Take 10 mg U nivers (PRILOSEC) 2-06 by mouth ity o f 2 mg/mL 19:34: daily. [place] oral 08 Medical suspension Branch Wound 2022-0 Yes 1{squir Apply 1 Univer s Dressings 2-06 t} Squirt to ity o f (TRIAD 19:34: area(s) as [place] WOUND 08 needed for Medical DRESSING) Other Branch Pste (wound). QUEtiapine 3-0 2023- No 50mg Take 50 mg Univers (SEROQUEL) 2-12 29-20 by mouth ity of 50 mg 19:34: 00:00 at [place] tablet 03 :00 bedtime. Medical Branch ipratropium 3-0 Yes .5mg 0.5 mg, Uni vers (ATROVENT) 2-06 Inhalation ity of 0.02 % 02:00: , BID, [place] nebulizer 00 First dose Medi michelle solution on [facility] 0.5 mg 09/04/22 at 1999, Until Discontinu ed, Routine albuterol 3-0 Yes 2.5mg 2.5 mg, Univ ers (PROVENTIL) 2-06 Inhalation it y of 2.5 mg /3 02:00: , BID, [place] mL (0.083 00 First dose Medi michelle %) on [facility] nebulizer 09/04/22 at solution 1999, 2.5 mg Until Discontinu ed, Routine albuterol 2023-0 Yes 2.5mg Inhale 3 Uni vers 2.5 mg /3 2-06 mL in the ity o f mL (0.083 00:00: morning [place] %) 00 and 3 mL Medical nebulizer in the Branch solution evening. ipratropium 2023-0 Yes .5mg Inhale 2.5 Univers 0.02 % 2-06 mL in the ity of nebulizer 00:00: morning [place] solution 00 and 2.5 mL Medic al in the Branch evening. albuterol 2023-0 Yes 2.5mg Inhale 3 Uni vers 2.5 mg /3 2-06 mL in the ity o f mL (0.083 00:00: morning [place] %) 00 and 3 mL Medical nebulizer in the Branch solution evening. ipratropium 2023-0 Yes .5mg Inhale 2.5 Univers 0.02 % 2-06 mL in the ity of nebulizer 00:00: morning [place] solution 00 and 2.5 mL Medic al in the Branch evening. lactulose Yes 30mL 30 mL, Univer s (CEPHULAC) 2-04 Enteral, ity o f solution 30 14:55: Q6HPRN, [place] as mL 44 Starting Medical on Sat Branch 09/03/22 at 0855, Until Discontinu ed, Routine, Constipati on, until pt has a BM metoclopram 2022- No 10mg 10 mg, Uni vers bebo HCl 09-02 Slow IV ity of (REGLAN) 06:15: 13:46 Push, BID, [place] injection 00 :00 2 doses, Medica l 10 mg First dose Branch on Mon09/02/22 at 0015, Last dose on Mon09/02/22 at 0800, Routine ondansetron Yes 8mg 8 mg, Slow Univers (ZOFRAN 09-02 IV Push, ity of (PF)) 06:13: Q6HPRN, [place] injection 8 13 Nausea and Me dical mg Vomiting Branch (N/V), Starting on Mon09/02/22 at 0013
Do ses of ondansetro n 16 mg and above need to be administer ed via IV piggyback. For Dose >=24mg ECG monitoring is advisable.
levothyroxi 2022- No [id number] 25ug Take 1 Univers ne 25 mcg 09-02 tablet ity of tablet 00:00: 05:59 through [place] 00 :00 enteral Medical tube every Branch morning for 30 days. levothyroxi 2022- No [id number] 25ug Take 1 Univers ne 25 mcg 09-02-06 tablet ity of tablet 00:00: 05:59 through [place] 00 :00 enteral Medical tube every Branch morning for 30 days. levothyroxi 2022- No 25ug Take 25 Un kraig ne 50 mcg 09-01 mcg by ity of tablet 13:15: 00:00 mouth [place] 55 :00 every Medical morning. Branch ferrous 2022- No [id number] 300mg Take 5 mL [facility] sulfate 300 09-01 through ity of mg (60 mg 00:00: 05:59 [place]eral [place] iron)/5 mL 00 :00 tube in Medica l solution the Branch morning for 30 days. insulin 2022- No [id number] 10U inject 10 Univers glargine 09-01 03-05 Units ity of 100 unit/mL 00:00: 05:59 under the [place] injection 00 :00 skin at [facility] for 30 days. ferrous 2022- No [id number] 300mg Take 5 mL Univers sulfate 300 09-01 03-05 through ity of mg (60 mg 00:00: 05:59 [place]eral [place] iron)/5 mL 00 :00 tube in Medica l solution the Branch morning for 30 days. insulin 2022- No [id number] 10U inject 10 Univers glargine 09-01- Units ity of 100 unit/mL 00:00: 05:59 under the [place] injection 00 :00 skin at [facility] for 30 days. D5W 0.9% No 1000mL at 100 Univ ers NaCl (NS) 08-27-28 mL/hr, ity of IV infusion 11:15: 10:29 1,000 mL, [place] 1,000 mL 00 :00 IV Medical Infusion, Branch ONCE, 1 dose, On 08/27/22 at 0515, Routine insulin Yes 10U 10 Units, Unive rs glargine -25 Subcutaneo ity o f (LANTUS 03:00: us, QHS, [place] U-100) 00 First dose Medical injection on [facility] Branch 10 Units 08/23/22 at 2100, Until Discontinu ed, Routine ferrous Yes 300mg 300 mg, Univer s sulfate 300 08-24 Enteral, ity of mg (60 mg 02:00: BID, First [place] iron)/5 mL 00 dose on Medica l solution [facility] 300 mg 08/23/22 at 2000, Until Discontinu ed, Routine ceftolozane 2022- No 750mg 750 mg, U nivers -tazobactam 08-24 Intravenou i ty of (ZERBAXA) 02:00: 11:09 s, Q8H [place] 750 mg in 00 :00 ABX, 14 Medical NaCl 0.9% doses, Branch (NS) 100 mL First dose IV infusion (after last modificati on) on Mon08/23/22 at 2000, Last dose on Mon08/28/22 at 0400, 100 mL ceftolozane No 750mg 750 mg, U nivers -tazobactam 08-23 Intravenou i ty of (ZERBAXA) 14:00: 20:11 s, Q8H [place] 750 mg in 00 :43 ABX, 15 Medical NaCl 0.9% doses, Branch (NS) 100 mL First dose IV infusion on Mon08/23/22 at 0800, Last dose on Mon08/28/22 at 0000, 100 mL ceFEPIme No 2000mg 2,000 mg, U nivers (MAXIPIME) 08-21 IV ity of 2,000 mg in 07:00: 20:25 Piggyback, [place] NaCl 0.9% 00 :25 Q12H ABX, Medic al (NS) 100 mL 6 doses, Bran ch MINI-BAG First dose (after last modificati on) on Mon08/21/22 at 0100, Last dose on Mon08/23/22 at 1300, Administer over 4 Hours, 100 mL
Reas on for Anti-Infec tive: Documented Infection< br>Documen mendoza Infection Site: Urine
D uration of Therapy: 7 days ceFEPIme 2022- No 2000mg 2,000 mg, U nivers (MAXIPIME) 08-19 IV ity of 2,000 mg in 21:45: 23:01 Piggyback, [place] NaCl 0.9% 19 :05 Q12H ABX, Medic al (NS) 100 mL 9 doses, Bran ch MINI-BAG First dose (after last modificati on) on Mon08/19/22 at 1600, Last dose on Mon08/23/22 at 1600, Administer over 4 Hours, 100 mL
Reas on for Anti-Infec tive: Documented Infection< br>Documen mendoza Infection Site: Urine
D uration of Therapy: 7 days folic Yes 1{tbl} Take 1 [facility] acid/vit B 1-20 tablet by ity of complex and 13:08: mouth [place] C 54 daily. Medical (DIALYVITE Branch 800 ORAL) sennosides Yes 8.6mg Take 8.6 Un kraig 8.6 mg 1-20 mg by ity of tablet 13:08: mouth in [place] 54 the Medical morning Branch and 8.6 mg in the evening. escitalopra Yes 10mg Take 10 mg Univers m oxalate 1-20 by mouth ity of 10 mg 13:08: in the [facility] 54 morning. Medical Branch ondansetron 0 Yes 4mg Take 4 mg U nivers 4 mg tablet 1-20 by mouth ity of 13:08: every 8 [place] [id number] (eight) Medical hours as Branch needed for Nausea and Vomiting (N/V). aspirin 81 0 Yes 81mg Take 81 mg U nivers mg EC 1-20 by mouth ity of tablet 13:08: in the [place] [address] morning. Medical Branch metoclopram Yes 10mg Take 10 mg Univers bebo HCl 10 1-20 by mouth ity o f mg tablet 13:08: every 8 [place] [id number] (eight) Medical hours as Branch needed for Nausea and Vomiting (N/V). insulin 0 Yes 30U inject 30 Unive rs glargine,hu 1-20 Units ity of m.rec.anlog 13:08: under the [place] (BASAGLAR 54 skin every [facility] Branch U-100 (twelve) INSULIN SC) hours. Hold PM dose if BG <150 omeprazole Yes 10mg Take 10 mg U nivers (PRILOSEC) 1-20 by mouth ity o f 2 mg/mL 13:08: daily. [place] oral 54 Medical suspension Branch Wound 0 Yes 1{squir Apply 1 Univer s Dressings 1-20 t} Squirt to ity o f (TRIAD 13:08: area(s) as [place] WOUND 54 needed for Medical DRESSING) Other Branch Pste (wound). ceFEPIme 2022-0 2022- No 1000mg 1,000 mg, U nivers (MAXIPIME) 1-20 01-20 IV ity of 1,000 mg in 09:45: 15:00 [place] NaCl 0.9% 00 :31 Q12H ABX, Medic al (NS) 50 mL 10 doses, Bran MINI-BAG First dose on Mon08/19/22 at 0345, Last dose on Mon08/23/22 at 1545, Administer over 4 Hours, 50 mL
Reas on for Anti-Infec tive: Documented Infection& lt;br>Docu mented Infection Site: Urine
D uration of Therapy: 7 days ceFEPIme 2022- No 1000mg 1,000 mg, U nivers (MAXIPIME) 08-18 IV ity of 1,000 mg in 22:30: 23:06 [place], [place] NaCl 0.9% 00 :00 ONCE, 1 Medical (NS) 50 mL dose, On Bran h MINI-BAG Mon08/18/22 at 1630, Administer over 30 Minutes, 50 mL
Reas on for Anti-Infec tive: Documented Infection< br>Documen mendoza Infection Site: Urine<br&g t;Duration of Therapy: 7 days D5W IV 2022- No 1000mL at 50 Univers infusion 08-18-20 mL/hr, IV ity o f 1,000 mL 19:00: 15:01 Infusion, [place] 00 :07 CONTINUOUS Medical , Starting Branch on Mon08/18/22 at 1300, Until Mon08/19/22 at 0901, Routine D5W IV 2022- No 1000mL at 42 Univers infusion 08-18-19 mL/hr, IV ity o f 1,000 mL 15:15: 18:54 Infusion, [place] 00 :20 CONTINUOUS Medical , Starting Branch on Mon08/18/22 at 0915, Until Mon08/18/22 at 1254, Routine insulin 2022- No 25U 25 Units, [facility] ers glargine 08-18 Subcutaneo ity of (LANTUS 03:00: 17:29 , [facility], [place] U-100) 00 :22 First dose Medical injection (after Branch 25 Units last modificati on) on Mon08/17/22 at 2100, Until Discontinu ed, Routine Sliding Yes Subcutaneo [facility] ers Scale -19 us, Q4H, ity of Insulin - 02:00: First dose [place] Lispro 00 on Mon Medical (HumaLOG) + 08/17/22 at anch Fsbg 1999, Testing Until Discontinu ed, Routine piperacilli 2022- No 3.375g 3.375 g, Univers n-tazobacta 08-18 IV ity of m (ZOSYN) 02:00: 20:14 Piggyback, [place] 3.375 g in 00 :18 Q12H ABX, Medi michelle NaCl 0.9% 10 doses, Branc h (NS) 50 mL First dose MINI-BAG on Mon08/17/22 at 2000, Last dose on Mon08/22/22 at 0800, Administer over 4 Hours, 50 mL
Reas on for Anti-Infec tive: Empiric Therapy for Suspected Infection< br>Empiric Therapy Site: Urine
D uration of therapy: 72 hours glucagon 2022- Yes 1mg 1 mg, Univers (GLUCAGEN 08-18 Intramuscu ity of DIAGNOSTIC 01:04: lar, PRN, [place] KIT) 25 Starting Medical injection 1 on Mon Branch 08/17/22 at 1904, Until Discontinu ed, JUMA, Blood Glucose < or = 70 mg/dL and patient is unable to swallow or has mental changes. dextrose 50 2022- Yes 25mL 25 mL, Univ ers % in water 08-18 Slow IV ity of (D50W) 01:04: Push, PRN, [place] injection 25 Starting Medica l 25 mL on Mon Branch 08/17/22 at 1904, Until Discontinu ed, JUMA, Blood Glucose < or = 70 mg/dL and patient is unable to swallow or has mental status changes. Sliding 2022- No Subcutaneo Uni vers Scale 08-17 us, 5X ity of Insulin - 20:00: 01:05 DAY, First [place] Lispro 00 :26 dose Medical (HumaLOG) + (after Branch Fsbg last Testing modificati on) on Mon08/17/22 at 1400, Until Discontinu ed, Routine D5W IV 2022- No 1000mL at 100 Univer s infusion 08-17 mL/hr, IV ity o f 1,000 mL 17:15: 15:09 Infusion, [place] 00 :19 CONTINUOUS Medical , Starting Branch on Mon08/17/22 at 1115, Until [place] 08/18/22 at 0909, Routine insulin Yes 35U 35 Units, Unive rs glargine 18 Subcutaneo ity o f (LANTUS 15:00: us, DAILY, [place] U-100) 00 First dose Medical injection (after Branch 35 Units last modificati on) on Mon08/17/22 at 0900, Until Discontinu ed escitalopra Yes 10mg 10 mg, Univ ers m oxalate 18 Oral, ity of (LEXAPRO) 15:00: DAILY, [place] tablet 10 00 First dose Medi michelle mg on Mon Branch 08/17/22 at 0900, Until Discontinu ed, Routine aspirin EC Yes 81mg 81 mg, Unive rs tablet 81 18 Oral, ity of mg 15:00: DAILY, [place] 00 First dose Medical on Mon Branch 08/17/22 at 0900, Until Discontinu ed, Routine levothyroxi Yes 25ug 25 mcg, Uni vers ne 18 Enteral, ity of (SYNTHROID) 12:00: QAM-0600, [place] tablet 25 00 First dose Medi michelle mcg on Mon Branch 08/17/22 at 0600, Until Discontinu ed, Routine insulin 2022- No 10U 10 Units, Univ ers lispro 08-1718 Subcutaneo ity of (human) 07:45: 07:06 us, ONCE, [place] (HumaLOG 00 :00 1 dose, On Medic al U-100) Mon Branch injection 08/17/22 at 10 Units 0145, Routine D5W IV 0 2022- No 1000mL at 50 Univers infusion 08-1718 mL/hr, IV ity o f 1,000 mL 03:15: 12:45 Infusion, [place] 00 :58 CONTINUOUS Medical , Starting Branch on Mon08/16/22 at 2115, Until Mon08/17/22 at 0645, Routine tamsulosin Yes .4mg 0.4 mg, Univ ers (FLOMAX) 18 Oral, QHS, ity o f capsule 0.4 03:00: First dose [place] mg 00 on [facility] 08/16/22 at Branch 2100, Until Discontinu ed, Routine atorvastati Yes 20mg 20 mg, Univ ers n (LIPITOR) -18 Oral, QHS, it y of tablet 20 03:00: First dose [place] mg 00 on [facility] 08/16/22 at Branch 2100, Until Discontinu ed, Routine amLODIPine Yes 10mg 10 mg, Unive rs (NORVASC) -18 Oral, QHS, ity of tablet 10 03:00: First dose [place] mg 00 on [facility] 08/16/22 at Branch 2100, Until Discontinu ed, Routine insulin 2022- No 20U 20 Units, [facility] ers glargine 08-17 Subcutaneo ity of (LANTUS 03:00: 06:52 us, QHS, [place] U-100) 00 :49 First dose Medical injection on [facility] Branch 20 Units 08/16/22 at 2100, Until Discontinu ed, Routine heparin Yes 5000U 5,000 Univers (porcine) 18 Units, ity of injection 02:00: Subcutaneo [place] 5,000 Units 00 us, Q12H, Med ical First dose Branch on Mon08/16/22 at 2000, Until Discontinu ed, Routine ipratropium 2022- No 3mL 3 mL, [facility] ers -albuteroL 08-17 02-05 Inhalation it y of (DUONEB) 02:00: 20:21 , BID, [place] 0.5 mg-3 00 :43 First dose Medic al mg(2.5 mg on [facility] base)/3 mL 08/16/22 at nebulizer 1999, solution 3 Until mL Discontinu ed, Routine Sliding 2022- No Subcutaneo Uni vers Scale 08-17 us, 5X ity of Insulin - 00:00: 17:00 DAY, First [place] Lispro 00 :43 dose Medical (HumaLOG) + (after Branch Fsbg last Testing modificati on) on Mon08/16/22 at 1800, Until Discontinu ed, Routine carvediloL Yes 25mg 25 mg, Unive rs (COREG) 1-17 Oral, BID ity of tablet 25 23:00: MEALS, [place] mg 00 First dose Medical on Branch 08/16/22 at 1700, Until Discontinu ed, Routine Sliding 2022- No Subcutaneo Uni vers Scale 08-16 us, QID, ity of Insulin - 22:00: 22:09 First dose [place] Lispro 00 :36 on Mon Medical (HumaLOG) + 08/16/22 at Br anch Fsbg 1600, Testing Until Discontinu ed, Routine fluconazole 2022- No 100mg 100 mg, U nivers (DIFLUCAN) 08-16 Enteral, ity of 40 mg/mL 19:45: 20:14 DAILY, 10 [place] suspension 00 :18 doses, Medical 100 mg First dose Branch on Mon08/16/22 at 1345, Last dose on Mon08/25/22 at 0900, JUMA
Re ason for Anti-Infec tive: Empiric Therapy for Suspected Infection< br>Empiric Therapy Site: Urine
D uration of therapy: 5 days HYDROcodone Yes 1{tbl} 1 tablet, Univers -acetaminop -17 Oral, ity of hen (NORCO) 17:13: Q6HPRN, [place] 10-325 mg 40 Starting Medica l tablet 1 on [facility] tablet 08/16/22 at 1113, Until Discontinu ed, Routine, Pain (scale 7-10) acetaminoph Yes 650mg 650 mg, Un [place]ra[place] en 17 Oral, ity of (TYLENOL) 17:13: Q6HPRN, [place] tablet 650 35 Starting Medic al mg on [facility] Branch 08/16/22 at 1113, Until Discontinu ed, Routine, Pain (scale 1-3) tamsulosin Yes .4mg Take 0.4 Uni vers 0.4 mg 24 1-17 mg by ity of hr capsule 15:42: mouth at [place] 04 bedtime. Medical Branch levothyroxi Yes 25ug Take 25 Uni vers ne 50 mcg 1-17 mcg by ity of tablet 15:42: mouth [place] 04 every Medical morning. Branch ondansetron 2022- No 4mg 4 mg, Slow Univers (ZOFRAN 08-16 IV Push, ity of (PF)) 14:45: 14:43 ONCE, 1 [place] injection 4 00 :00 dose, On Medi michelle mg Tue Branch 08/16/22 at 0845, JUMA piperacilli 2022- No 3.375g 3.375 g, Univers n-tazobacta 08-16 IV ity of m (ZOSYN) 14:15: 15:00 [place], [place] 3.375 g in 00 :00 ONCE, 1 Medica l NaCl 0.9% dose, On Branch (NS) 50 mL Tue MINI-BAG 08/16/22 at 0815, Administer over 30 Minutes, 50 mL
R trinity for Anti-Infec tive: Documented Infection< br>Documen mendoza Infection Site: Urine<br&g t;Duration of Therapy: 7 days NaCl 0.9% 2022- No 1000mL at 999 Uni vers (NS) IV 08-06 01-07 mL/hr, ity of infusion 17:45: 18:45 Intravenou [place] 1,000 mL 00 :00 s, ONCE, 1 Medic al dose, On Branch 08/06/22 at 1145, JUMA cefTRIAXone 2021-07 Yes 1000mg 1,000 mg, Univers (ROCEPHIN) 2-21 Slow IV ity of injection 21:00: Push, Q24H [place] 1,000 mg 00 ABX, First Medic al dose on Branch Mon07/20/22 at 1500, Until Discontinu ed, JUMA<br&gt ;Reason for Anti-Infec tive: Empiric Therapy for Suspected Infection< br>Empiric Therapy Site: Urine
D uration of therapy: 72 hours levoFLOXaci 2021-07 Yes [id number] 750mg Take 1 Univers n 750 mg 2-21 tablet by ity of tablet 00:00: mouth [place] 00 every 24 Medical (twenty- Branch ur) hours. levoFLOXaci 2021-07 Yes [id number] 750mg Take 1 Univers n 750 mg 2-21 tablet by ity of tablet 00:00: mouth [place] 00 every 24 Medical (twenty-fo Branch ur) hours. levoFLOXaci 2021-07 Yes [id number] 750mg Take 1 Univers n 750 mg 2-21 tablet by ity of tablet 00:00: mouth [place] 00 every 24 Medical (twenty- Branch ur) hours. levoFLOXaci 2021-07- No [id number] 750mg Take 1 Univers n 750 mg 2-21 -17 tablet by ity o f tablet 00:00: 00:00 mouth [place] 00 :00 every 24 Medical ([facility]- Branch ur) hours. levoFLOXaci 2021-07- No [id number] 750mg Take 1 Univers n 750 mg 2-21 -21 tablet by ity o f tablet 00:00: 00:00 mouth [place] 00 :00 every 24 Medical ([facility]- Branch ur) hours. cefTRIAXone 2021-07- No 1000mg 1,000 mg, Univers (ROCEPHIN) 2-17 12-18 IV ity of 1,000 mg in 16:30: 04:29 [place], [place] NaCl 0.9% 00 :00 ONCE, 1 Medical (NS) 50 mL dose, On [facility] h MINI-BAG 07/16/22 at 1030, Administer over 30 Minutes, 50 mL
Reas on for Anti-Infec tive: Documented Infection< br>Documen mendoza Infection Site: Urine<br&g t;Duration of Therapy: 7 days NaCl 0.9% 2021-07 No 1000mL at 999 Uni vers (NS) bolus 2-17 12-17 mL/hr, ity of infusion 16:15: 17:08 1,000 mL, [place] 1,000 mL 00 :00 IV Medical Infusion, Branch ONCE, 1 dose, On 07/16/22 at 1015, JUMA cefpodoxime 2021-07- No [id number] 100mg Take 1 Univers 100 mg 2-17 12-25 tablet by ity of tablet 00:00: 05:59 mouth in [place] 00 :00 the Medical morning Branch and 1 tablet in the evening. Do all this for 7 days. cefpodoxime 2021-07- No [id number] 100mg Take 1 Univers 100 mg 2-17 12-25 tablet by ity of tablet 00:00: 05:59 mouth in [place] 00 :00 the Medical morning Branch and 1 tablet in the evening. Do all this for 7 days. diatrizoate 2021-07- No [id number] 120mL 120 mL, Univers soraida-diatriz 2-10 12-10 Oral, ity of oat sod 00:45: 00:24 ONCE, 1 [place] (GASTROGRAF 00 :00 dose, On Medi michelle IN) 66-10 % Fri Branch oral 07/08/22 at solution 1845, 120 mL Routine folic 2021-07 Yes 1{tbl} Take 1 Univers acid/vit B 0-25 tablet by ity of complex and 11:35: mouth [place] [address] daily. Medical (DIALYVITE Branch 800 ORAL) tamsulosin 2021-07 Yes .4mg Take 0.4 Uni vers 0.4 mg 24 0-25 mg by ity of hr capsule 11:35: mouth at [place] [address] bedtime. Medical Branch sennosides 2021-07 Yes 8.6mg Take 8.6 Un kraig 8.6 mg 0-25 mg by ity of tablet 11:35: mouth in [place] [address] the Medical morning Branch and 8.6 mg in the evening. escitalopra 2021-07 Yes 10mg Take 10 mg Univers m oxalate 0-25 by mouth ity of 10 mg 11:35: in the [place] [address] morning. Medical Branch ondansetron 2021-07 Yes 4mg Take 4 mg U nivers 4 mg tablet 0-25 by mouth ity of 11:35: every 8 [place] [address] (eight) Medical hours as Branch needed for Nausea and Vomiting (N/V). aspirin 81 2021-07 Yes 81mg Take 81 mg U nivers mg EC 0-25 by mouth ity of tablet 11:35: in the [place] [address] morning. Medical Branch metoclopram 2021-07 Yes 10mg Take 10 mg Univers bebo HCl 10 0-25 by mouth ity o f mg tablet 11:35: every 8 [place] [address] (eight) Medical hours as Branch needed for Nausea and Vomiting (N/V). levothyroxi 2021-07 Yes 25ug Take 25 Uni vers ne 50 mcg 0-25 mcg by ity of tablet 11:35: mouth [place] [address] every Medical morning. Branch insulin 2021-07 Yes 30U inject 30 Unive rs glargine,hu 0-25 Units ity of m.rec.anlog 11:35: under the [place] (BASAGLAR 33 skin every Medi michelle KWIKPEN 12 Branch U-100 (twelve) INSULIN SC) hours. Hold PM dose if BG <150 omeprazole 2021-07 Yes 10mg Take 10 mg U nivers (PRILOSEC) 0-25 by mouth ity o f 2 mg/mL 11:35: daily. [place] oral 33 Medical suspension Branch folic 2021-07 Yes 1{tbl} Take 1 Univers acid/vit B 0-25 tablet by ity of complex and 11:35: mouth [place] C 33 daily. Medical (DIALYVITE Branch 800 ORAL) tamsulosin 2021-07 Yes .4mg Take 0.4 Uni vers 0.4 mg 24 0-25 mg by ity of hr capsule 11:35: mouth at [place] [facility] as 33 bedtime. Medical Branch sennosides 2021-07 Yes 8.6mg Take 8.6 Un kraig 8.6 mg 0-25 mg by ity of tablet 11:35: mouth in [place] [address] the Medical morning Branch and 8.6 mg in the evening. escitalopra 2021-07 Yes 10mg Take 10 mg Univers m oxalate 0-25 by mouth ity of 10 mg 11:35: in the [facility] 33 morning. Medical Branch ondansetron 2021-07 Yes 4mg Take 4 mg U nivers 4 mg tablet 0-25 by mouth ity of 11:35: every 8 [place] [address] (eight) Medical hours as Branch needed for Nausea and Vomiting (N/V). aspirin 81 2021-07 Yes 81mg Take 81 mg U nivers mg EC 0-25 by mouth ity of tablet 11:35: in the [place] [address] morning. Medical Branch metoclopram 2021-07 Yes 10mg Take 10 mg Univers bebo HCl 10 0-25 by mouth ity o f mg tablet 11:35: every 8 [place] [address] (eight) Medical hours as Branch needed for Nausea and Vomiting (N/V). levothyroxi 2021-07 Yes 25ug Take 25 Uni vers ne 50 mcg 0-25 mcg by ity of tablet 11:35: mouth [place] 33 every Medical morning. Branch insulin 2021-07 Yes 30U inject 30 Unive rs glargine,hu 0-25 Units ity of m.rec.anlog 11:35: under the [place] (BASAGLAR 33 skin every Medi michelle KWIKPEN 12 Branch U-100 (twelve) INSULIN SC) hours. Hold PM dose if BG <150 omeprazole 2021-07 Yes 10mg Take 10 mg U nivers (PRILOSEC) 0-25 by mouth ity o f 2 mg/mL 11:35: daily. [place] oral 33 Medical suspension Branch folic 2021-07 Yes 1{tbl} Take 1 Univers acid/vit B 0-25 tablet by ity of complex and 11:35: mouth [place] C 33 daily. Medical (DIALYVITE Branch 800 ORAL) tamsulosin 2021-07 Yes .4mg Take 0.4 Uni vers 0.4 mg 24 0-25 mg by ity of hr capsule 11:35: mouth at [place] [facility] as 33 bedtime. Medical Branch sennosides 2021-07 Yes 8.6mg Take 8.6 Un kraig 8.6 mg 0-25 mg by ity of tablet 11:35: mouth in [place] [address] the Medical morning Branch and 8.6 mg in the evening. escitalopra 2021-07 Yes 10mg Take 10 mg Univers m oxalate 0-25 by mouth ity of 10 mg 11:35: in the [facility] 33 morning. Medical Branch ondansetron 2021-07 Yes 4mg Take 4 mg U nivers 4 mg tablet 0-25 by mouth ity of 11:35: every 8 [place] [address] (eight) Medical hours as Branch needed for Nausea and Vomiting (N/V). aspirin 81 2021-07 Yes 81mg Take 81 mg U nivers mg EC 0-25 by mouth ity of tablet 11:35: in the [place] [address] morning. Medical Branch metoclopram 2021-07 Yes 10mg Take 10 mg Univers bebo HCl 10 0-25 by mouth ity o f mg tablet 11:35: every 8 [place] [address] (eight) Medical hours as Branch needed for Nausea and Vomiting (N/V). levothyroxi 2021-07 Yes 25ug Take 25 Uni vers ne 50 mcg 0-25 mcg by ity of tablet 11:35: mouth [place] 33 every Medical morning. Branch insulin 2021-07 Yes 30U inject 30 Unive rs glargine,hu 0-25 Units ity of m.rec.anlog 11:35: under the [place] (BASAGLAR 33 skin every Medi michelle KWIKPEN 12 Branch U-100 (twelve) INSULIN SC) hours. Hold PM dose if BG <150 omeprazole 2021-07 Yes 10mg Take 10 mg U nivers (PRILOSEC) 0-25 by mouth ity o f 2 mg/mL 11:35: daily. [place] oral 33 Medical suspension Branch folic 2021-07 Yes 1{tbl} Take 1 Univers acid/vit B 0-25 tablet by ity of complex and 11:35: mouth [place] C 33 daily. Medical (DIALYVITE Branch 800 ORAL) tamsulosin 2021-07 Yes .4mg Take 0.4 Uni vers 0.4 mg 24 0-25 mg by ity of hr capsule 11:35: mouth at [place] [facility] as 33 bedtime. Medical Branch sennosides 2021-07 Yes 8.6mg Take 8.6 Un kraig 8.6 mg 0-25 mg by ity of tablet 11:35: mouth in [place] 33 the Medical morning Branch and 8.6 mg in the evening. escitalopra 2021-07 Yes 10mg Take 10 mg Univers m oxalate 0-25 by mouth ity of 10 mg 11:35: in the [facility] 33 morning. Medical Branch ondansetron 2021-07 Yes 4mg Take 4 mg U nivers 4 mg tablet 0-25 by mouth ity of 11:35: every 8 [place] [address] (eight) Medical hours as Branch needed for Nausea and Vomiting (N/V). aspirin 81 2021-07 Yes 81mg Take 81 mg U nivers mg EC 0-25 by mouth ity of tablet 11:35: in the [place] [address] morning. Medical Branch metoclopram 2021-07 Yes 10mg Take 10 mg Univers bebo HCl 10 0-25 by mouth ity o f mg tablet 11:35: every 8 [place] [address] (eight) Medical hours as Branch needed for Nausea and Vomiting (N/V). levothyroxi 2021-07 Yes 25ug Take 25 Uni vers ne 50 mcg 0-25 mcg by ity of tablet 11:35: mouth [place] 33 every Medical morning. Branch insulin 2021-07 Yes 30U inject 30 Unive rs glargine,hu 0-25 Units ity of m.rec.anlog 11:35: under the [place] (BASAGLAR 33 skin every Medi michelle KWIKPEN 12 Branch U-100 (twelve) INSULIN SC) hours. Hold PM dose if BG <150 omeprazole 2021-07 Yes 10mg Take 10 mg U nivers (PRILOSEC) 0-25 by mouth ity o f 2 mg/mL 11:35: daily. [place] oral 33 Medical suspension Branch folic 2021-07 Yes 1{tbl} Take 1 Univers acid/vit B 0-25 tablet by ity of complex and 11:35: mouth [place] C 33 daily. Medical (DIALYVITE Branch 800 ORAL) tamsulosin 2021-07 Yes .4mg Take 0.4 Uni vers 0.4 mg 24 0-25 mg by ity of hr capsule 11:35: mouth at [place] [facility] as 33 bedtime. Medical Branch sennosides 2021-07 Yes 8.6mg Take 8.6 Un kraig 8.6 mg 0-25 mg by ity of tablet 11:35: mouth in [place] 33 the Medical morning Branch and 8.6 mg in the evening. escitalopra 2021-07 Yes 10mg Take 10 mg Univers m oxalate 0-25 by mouth ity of 10 mg 11:35: in the [facility] 33 morning. Medical Branch ondansetron 2021-07 Yes 4mg Take 4 mg U nivers 4 mg tablet 0-25 by mouth ity of 11:35: every 8 [place] [address] (eight) Medical hours as Branch needed for Nausea and Vomiting (N/V). aspirin 81 2021-07 Yes 81mg Take 81 mg U nivers mg EC 0-25 by mouth ity of tablet 11:35: in the [place] [address] morning. Medical Branch metoclopram 2021-07 Yes 10mg Take 10 mg Univers bebo HCl 10 0-25 by mouth ity o f mg tablet 11:35: every 8 [place] [address] (eight) Medical hours as Branch needed for Nausea and Vomiting (N/V). levothyroxi 2021-07 Yes 25ug Take 25 Uni vers ne 50 mcg 0-25 mcg by ity of tablet 11:35: mouth [place] 33 every Medical morning. Branch insulin 2021-07 Yes 30U inject 30 Unive rs glargine,hu 0-25 Units ity of m.rec.anlog 11:35: under the [place] (BASAGLAR 33 skin every [facility] KWIKPEN 12 Branch U-100 (twelve) INSULIN SC) hours. Hold PM dose if BG <150 omeprazole 2021-07 Yes 10mg Take 10 mg U nivers (PRILOSEC) 0-25 by mouth ity o f 2 mg/mL 11:35: daily. [place] oral 33 Medical suspension Branch folic 2021-07 Yes 1{tbl} Take 1 Univers acid/vit B 0-25 tablet by ity of complex and 11:35: mouth [place] C 33 daily. Medical (DIALYVITE Branch 800 ORAL) tamsulosin 2021-07 Yes .4mg Take 0.4 Uni vers 0.4 mg 24 0-25 mg by ity of hr capsule 11:35: mouth at [place] as 33 bedtime. Medical Branch sennosides 2021-07 Yes 8.6mg Take 8.6 Un kraig 8.6 mg 0-25 mg by ity of tablet 11:35: mouth in [place] 33 the Medical morning Branch and 8.6 mg in the evening. escitalopra 2021-07 Yes 10mg Take 10 mg Univers m oxalate 0-25 by mouth ity of 10 mg 11:35: in the [facility] 33 morning. Medical Branch ondansetron 2021-07 Yes 4mg Take 4 mg U nivers 4 mg tablet 0-25 by mouth ity of 11:35: every 8 [place] [address] (eight) Medical hours as Branch needed for Nausea and Vomiting (N/V). aspirin 81 2021-07 Yes 81mg Take 81 mg U nivers mg EC 0-25 by mouth ity of tablet 11:35: in the [place] [address] morning. Medical Branch metoclopram 2021-07 Yes 10mg Take 10 mg Univers bebo HCl 10 0-25 by mouth ity o f mg tablet 11:35: every 8 [place] [address] (eight) Medical hours as Branch needed for Nausea and Vomiting (N/V). levothyroxi 2021-07 Yes 25ug Take 25 Uni vers ne 50 mcg 0-25 mcg by ity of tablet 11:35: mouth [place] 33 every Medical morning. Branch insulin 2021-07 Yes 30U inject 30 Unive rs glargine,hu 0-25 Units ity of m.rec.anlog 11:35: under the [place] (BASAGLAR 33 skin every Medi michelle KWIKPEN 12 Branch U-100 (twelve) INSULIN SC) hours. Hold PM dose if BG <150 omeprazole 2021-07 Yes 10mg Take 10 mg U nivers (PRILOSEC) 0-25 by mouth ity o f 2 mg/mL 11:35: daily. [place] oral 33 Medical suspension Branch folic 2021-07 Yes 1{tbl} Take 1 Univers acid/vit B 0-25 tablet by ity of complex and 11:35: mouth [place] C 33 daily. Medical (DIALYVITE Branch 800 ORAL) tamsulosin 2021-07 Yes .4mg Take 0.4 Uni vers 0.4 mg 24 0-25 mg by ity of hr capsule 11:35: mouth at [facility] as 33 bedtime. Medical Branch sennosides 2021-07 Yes 8.6mg Take 8.6 Un kraig 8.6 mg 0-25 mg by ity of tablet 11:35: mouth in [place] [address] the Medical morning Branch and 8.6 mg in the evening. escitalopra 2021-07 Yes 10mg Take 10 mg Univers m oxalate 0-25 by mouth ity of 10 mg 11:35: in the [place] [address] morning. Medical Branch ondansetron 2021-07 Yes 4mg Take 4 mg U nivers 4 mg tablet 0-25 by mouth ity of 11:35: every 8 [place] [address] (eight) Medical hours as Branch needed for Nausea and Vomiting (N/V). aspirin 81 2021-07 Yes 81mg Take 81 mg U nivers mg EC 0-25 by mouth ity of tablet 11:35: in the [place] [address] morning. Medical Branch metoclopram 2021-07 Yes 10mg Take 10 mg Univers bebo HCl 10 0-25 by mouth ity o f mg tablet 11:35: every 8 [place] [address] (eight) Medical hours as Branch needed for Nausea and Vomiting (N/V). levothyroxi 2021-07 Yes 25ug Take 25 Uni vers ne 50 mcg 0-25 mcg by ity of tablet 11:35: mouth [place] 33 every Medical morning. Branch insulin 2021-07 Yes 30U inject 30 Unive rs glargine,hu 0-25 Units ity of m.rec.anlog 11:35: under the [place] (BASAGLAR 33 skin every Medi michelle KWIKPEN 12 Branch U-100 (twelve) INSULIN SC) hours. Hold PM dose if BG <150 omeprazole 2021-07 Yes 10mg Take 10 mg U nivers (PRILOSEC) 0-25 by mouth ity o f 2 mg/mL 11:35: daily. [place] oral 33 Medical suspension Branch folic 2021-07 Yes 1{tbl} Take 1 Univers acid/vit B 0-25 tablet by ity of complex and 11:35: mouth [place] C 33 daily. Medical (DIALYVITE Branch 800 ORAL) tamsulosin 2021-07 Yes .4mg Take 0.4 Uni vers 0.4 mg 24 0-25 mg by ity of hr capsule 11:35: mouth at [facility] as 33 bedtime. Medical Branch sennosides 2021-07 Yes 8.6mg Take 8.6 Un kraig 8.6 mg 0-25 mg by ity of tablet 11:35: mouth in [place] [address] the Medical morning Branch and 8.6 mg in the evening. escitalopra 2021-07 Yes 10mg Take 10 mg Univers m oxalate 0-25 by mouth ity of 10 mg 11:35: in the [place] [address] morning. Medical Branch ondansetron 2021-07 Yes 4mg Take 4 mg U nivers 4 mg tablet 0-25 by mouth ity of 11:35: every 8 [place] [address] (eight) Medical hours as Branch needed for Nausea and Vomiting (N/V). aspirin 81 2021-07 Yes 81mg Take 81 mg U nivers mg EC 0-25 by mouth ity of tablet 11:35: in the [place] [address] morning. Medical Branch metoclopram 2021-07 Yes 10mg Take 10 mg [facility] bebo HCl 10 0-25 by mouth ity o f mg tablet 11:35: every 8 [place] [address] (eight) Medical hours as Branch needed for Nausea and Vomiting (N/V). levothyroxi 2021-07 Yes 25ug Take 25 Uni vers ne 50 mcg 0-25 mcg by ity of tablet 11:35: mouth [place] [address] every Medical morning. Branch insulin 2021-07 Yes 30U inject 30 Unive rs glargine,hu 0-25 Units ity of m.rec.anlog 11:35: under the [place] (BASAGLAR 33 skin every Medi michelle KWIKPEN 12 Branch U-100 (twelve) INSULIN SC) hours. Hold PM dose if BG <150 omeprazole 2021-07 Yes 10mg Take 10 mg U nivers (PRILOSEC) 0-25 by mouth ity o f 2 mg/mL 11:35: daily. [place] oral Medical suspension Branch folic 2021-07 Yes 1{tbl} Take 1 [facility] acid/vit B 0-25 tablet by ity of complex and 11:35: mouth [place] C 33 daily. Medical (DIALYVITE Branch 800 ORAL) tamsulosin 2021-07 Yes .4mg Take 0.4 Uni vers 0.4 mg 24 0-25 mg by ity of hr capsule 11:35: mouth at [facility] as 33 bedtime. Medical Branch sennosides 2021-07 Yes 8.6mg Take 8.6 Un kraig 8.6 mg 0-25 mg by ity of tablet 11:35: mouth in [place] [address] the Medical morning Branch and 8.6 mg in the evening. escitalopra 2021-07 Yes 10mg Take 10 mg [facility] m oxalate 0-25 by mouth ity of 10 mg 11:35: in the [place] [address] morning. Medical Branch ondansetron 2021-07 Yes 4mg Take 4 mg U nivers 4 mg tablet 0-25 by mouth ity of 11:35: every 8 [place] [address] (eight) Medical hours as Branch needed for Nausea and Vomiting (N/V). aspirin 81 2021-07 Yes 81mg Take 81 mg U nivers mg EC 0-25 by mouth ity of tablet 11:35: in the [place] [address] morning. Medical Branch metoclopram 2021-07 Yes 10mg Take 10 mg [facility] bebo HCl 10 0-25 by mouth ity o f mg tablet 11:35: every 8 [place] [address] (eight) Medical hours as Branch needed for Nausea and Vomiting (N/V). levothyroxi 2021-07 Yes 25ug Take 25 Uni vers ne 50 mcg 0-25 mcg by ity of tablet 11:35: mouth [place] [address] every Medical morning. Branch insulin 2021-07 Yes 30U inject 30 Unive rs glargine,hu 0-25 Units ity of m.rec.anlog 11:35: under the [place] (BASAGLAR 33 skin every Medi michelle KWIKPEN 12 Branch U-100 (twelve) INSULIN SC) hours. Hold PM dose if BG <150 omeprazole 2021-07 Yes 10mg Take 10 mg U nivers (PRILOSEC) 0-25 by mouth ity o f 2 mg/mL 11:35: daily. [place] oral 33 Medical suspension Branch folic 2021-07 Yes 1{tbl} Take 1 [facility] acid/vit B 0-25 tablet by ity of complex and 11:35: mouth [place] C 33 daily. Medical (DIALYVITE Branch 800 ORAL) tamsulosin 2021-07 Yes .4mg Take 0.4 Uni vers 0.4 mg 24 0-25 mg by ity of hr capsule 11:35: mouth at [facility] as 33 bedtime. Medical Branch sennosides 2021-07 Yes 8.6mg Take 8.6 Un kraig 8.6 mg 0-25 mg by ity of tablet 11:35: mouth in [place] 33 the Medical morning Branch and 8.6 mg in the evening. escitalopra 2021-07 Yes 10mg Take 10 mg [facility] m oxalate 0-25 by mouth ity of 10 mg 11:35: in the [place] [address] morning. Medical Branch ondansetron 2021-07 Yes 4mg Take 4 mg U nivers 4 mg tablet 0-25 by mouth ity of 11:35: every 8 [place] [address] (eight) Medical hours as Branch needed for Nausea and Vomiting (N/V). aspirin 81 2021-07 Yes 81mg Take 81 mg U nivers mg EC 0-25 by mouth ity of tablet 11:35: in the [place] [address] morning. Medical Branch metoclopram 2021-07 Yes 10mg Take 10 mg [facility] bebo HCl 10 0-25 by mouth ity o f mg tablet 11:35: every 8 [place] [address] (eight) Medical hours as Branch needed for Nausea and Vomiting (N/V). levothyroxi 2021-07 Yes 25ug Take 25 Uni vers ne 50 mcg 0-25 mcg by ity of tablet 11:35: mouth [place] 33 every Medical morning. Branch insulin 2021-07 Yes 30U inject 30 Unive rs glargine,hu 0-25 Units ity of m.rec.anlog 11:35: under the [place] (BASAGLAR 33 skin every Medi michelle KWIKPEN 12 Branch U-100 (twelve) INSULIN SC) hours. Hold PM dose if BG <150 omeprazole 2021-07 Yes 10mg Take 10 mg U nivers (PRILOSEC) 0-25 by mouth ity o f 2 mg/mL 11:35: daily. [place] [address] Medical suspension Branch folic 2021-07 Yes 1{tbl} Take 1 [facility] acid/vit B 0-25 tablet by ity of complex and 11:35: mouth [place] C 33 daily. Medical (DIALYVITE Branch 800 ORAL) tamsulosin 2021-07 Yes .4mg Take 0.4 Uni vers 0.4 mg 24 0-25 mg by ity of hr capsule 11:35: mouth at [facility] as 33 bedtime. Medical Branch sennosides 2021-07 Yes 8.6mg Take 8.6 Un kraig 8.6 mg 0-25 mg by ity of tablet 11:35: mouth in [place] 33 the Medical morning Branch and 8.6 mg in the evening. escitalopra 2021-07 Yes 10mg Take 10 mg [facility] m oxalate 0-25 by mouth ity of 10 mg 11:35: in the [place] [address] morning. Medical Branch ondansetron 2021-07 Yes 4mg Take 4 mg U nivers 4 mg tablet 0-25 by mouth ity of 11:35: every 8 [place] [address] (eight) Medical hours as Branch needed for Nausea and Vomiting (N/V). aspirin 81 2021-07 Yes 81mg Take 81 mg U nivers mg EC 0-25 by mouth ity of tablet 11:35: in the [place] [address] morning. Medical Branch metoclopram 2021-07 Yes 10mg Take 10 mg [facility] bebo HCl 10 0-25 by mouth ity o f mg tablet 11:35: every 8 [place] [address] (eight) Medical hours as Branch needed for Nausea and Vomiting (N/V). levothyroxi 2021-07 Yes 25ug Take 25 Uni vers ne 50 mcg 0-25 mcg by ity of tablet 11:35: mouth [place] 33 every Medical morning. Branch insulin 2021-07 Yes 30U inject 30 Unive rs glargine,hu 0-25 Units ity of m.rec.anlog 11:35: under the [place] (BASAGLAR 33 skin every Medi michelle KWIKPEN 12 Branch U-100 (twelve) INSULIN SC) hours. Hold PM dose if BG <150 omeprazole 2021-07 Yes 10mg Take 10 mg U nivers (PRILOSEC) 0-25 by mouth ity o f 2 mg/mL 11:35: daily. [place] oral Medical suspension Branch folic 2021-07 Yes 1{tbl} Take 1 [facility] acid/vit B 0-25 tablet by ity of complex and 11:35: mouth [place] C 33 daily. Medical (DIALYVITE Branch 800 ORAL) tamsulosin 2021-07 Yes .4mg Take 0.4 Uni vers 0.4 mg 24 0-25 mg by ity of hr capsule 11:35: mouth at [facility] as 33 bedtime. Medical Branch sennosides 2021-07 Yes 8.6mg Take 8.6 Un kraig 8.6 mg 0-25 mg by ity of tablet 11:35: mouth in [place] 33 the Medical morning Branch and 8.6 mg in the evening. escitalopra 2021-07 Yes 10mg Take 10 mg [facility] m oxalate 0-25 by mouth ity of 10 mg 11:35: in the [facility] 33 morning. Medical Branch ondansetron 2021-07 Yes 4mg Take 4 mg U nivers 4 mg tablet 0-25 by mouth ity of 11:35: every 8 [place] [address] (eight) Medical hours as Branch needed for Nausea and Vomiting (N/V). aspirin 81 2021-07 Yes 81mg Take 81 mg U nivers mg EC 0-25 by mouth ity of tablet 11:35: in the [place] [address] morning. Medical Branch metoclopram 2021-07 Yes 10mg Take 10 mg [facility] bebo HCl 10 0-25 by mouth ity o f mg tablet 11:35: every 8 [place] [address] (eight) Medical hours as Branch needed for Nausea and Vomiting (N/V). levothyroxi 2021-07 Yes 25ug Take 25 Uni vers ne 50 mcg 0-25 mcg by ity of tablet 11:35: mouth [place] 33 every Medical morning. Branch insulin 2021-07 Yes 30U inject 30 Unive rs glargine,hu 0-25 Units ity of m.rec.anlog 11:35: under the [place] (BASAGLAR 33 skin every [facility] michelle KWIKPEN 12 Branch U-100 (twelve) INSULIN SC) hours. Hold PM dose if BG <150 omeprazole 2021-07 Yes 10mg Take 10 mg U nivers (PRILOSEC) 0-25 by mouth ity o f 2 mg/mL 11:35: daily. [place] oral 33 Medical suspension Branch folic 2021-07 Yes 1{tbl} Take 1 [facility] acid/vit B 0-25 tablet by ity of complex and 11:35: mouth [place] C 33 daily. Medical (DIALYVITE Branch 800 ORAL) tamsulosin 2021-07 Yes .4mg Take 0.4 Uni vers 0.4 mg 24 0-25 mg by ity of hr capsule 11:35: mouth at [place] as 33 bedtime. Medical Branch sennosides 2021-07 Yes 8.6mg Take 8.6 Un kraig 8.6 mg 0-25 mg by ity of tablet 11:35: mouth in [place] 33 the Medical morning Branch and 8.6 mg in the evening. escitalopra 2021-07 Yes 10mg Take 10 mg [facility] m oxalate 0-25 by mouth ity of 10 mg 11:35: in the [facility] 33 morning. Medical Branch ondansetron 2021-07 Yes 4mg Take 4 mg U nivers 4 mg tablet 0-25 by mouth ity of 11:35: every 8 [place] [address] (eight) Medical hours as Branch needed for Nausea and Vomiting (N/V). aspirin 81 2021-07 Yes 81mg Take 81 mg U nivers mg EC 0-25 by mouth ity of tablet 11:35: in the [place] [address] morning. Medical Branch metoclopram 2021-07 Yes 10mg Take 10 mg [facility] bebo HCl 10 0-25 by mouth ity o f mg tablet 11:35: every 8 [place] [address] (eight) Medical hours as Branch needed for Nausea and Vomiting (N/V). levothyroxi 2021-07 Yes 25ug Take 25 Uni vers ne 50 mcg 0-25 mcg by ity of tablet 11:35: mouth [place] [address] every Medical morning. Branch insulin 2021-07 Yes 30U inject 30 Unive rs glargine,hu 0-25 Units ity of m.rec.anlog 11:35: under the [place] (BASAGLAR 33 skin every [facility] michelle KWIKPEN 12 Branch U-100 (twelve) INSULIN SC) hours. Hold PM dose if BG <150 omeprazole 2021-07 Yes 10mg Take 10 mg U nivers (PRILOSEC) 0-25 by mouth ity o f 2 mg/mL 11:35: daily. [place] oral 33 Medical suspension Branch isosorbide 2021-07- No 20mg Take 20 mg [facility] dinitrate 0-25 10-25 by mouth 2 ity of 20 mg 11:33: 00:00 (two) [place] tablet 05 :00 times Medical daily. Branch isosorbide 2021-07 No 20mg Take 20 mg [facility] dinitrate 0-25 10-25 by mouth 2 ity of 20 mg 11:33: 00:00 (two) [place] tablet 05 :00 times Medical daily. Branch ciprofloxac No 750mg 750 mg, U nivers in HCl 04-28 Oral, Q12H ity of (CIPRO) 02:00: 01:59 ABX, 8 [place] tablet 750 00 :00 doses, Medical mg First dose Branch on Mon04/27/22 at 2100, Last dose on Mon05/01/22 at 0900, JUMA
Re ason for Anti-Infec tive: Documented Infection< br>Documen mendoza Infection Site: Respirator y
Durat ion of Therapy: Other (see Comments) ciprofloxac No 750mg 750 mg, U nivers in HCl 04-28 Oral, Q12H ity of (CIPRO) 02:00: 01:59 ABX, 8 [place] tablet 750 00 :00 doses, Medical mg First dose Branch on Mon04/27/22 at 2100, Last dose on Mon05/01/22 at 0900, JUMA
Re ason for Anti-Infec tive: Documented Infection< br>Documen mendoza Infection Site: Respirator y
Durat ion of Therapy: Other (see Comments) ondansetron No 4mg 4 mg, Slow Univers (ZOFRAN 04-27 IV Push, ity of (PF)) 20:00: 19:14 ONCE, On [place] injection 4 00 :00 Mon Medical mg 04/27/22 at Branch 1500, For 1 dose
Do ses of ondansetro n 16 mg and above need to be administer ed via IV piggyback. For Dose >=24mg ECG monitoring is advisable.
isosorbide Yes 20mg Take 20 mg U nivers dinitrate 9-28 by mouth 2 ity of 20 mg 14:51: (two) [place] tablet 55 times Medical daily. Branch folic Yes 1{tbl} Take 1 [facility] acid/vit B 9- tablet by ity of complex and 14:51: mouth [place] C 55 daily. Medical (DIALYVITE Branch 800 ORAL) tamsulosin Yes .4mg Take 0.4 Uni vers 0.4 mg 24 9-28 mg by ity of hr capsule 14:51: mouth at [place] as 55 bedtime. Medical Branch sennosides Yes 8.6mg Take 8.6 Un kraig (SENNA) 8.6 9-28 mg by ity of mg tablet 14:51: mouth [place] 55 the Medical morning Branch and 8.6 mg in the evening. escitalopra Yes 10mg Take 10 mg [facility] m oxalate 04-27 by mouth ity of 10 mg 14:51: in the [place] tablet 55 morning. Medical Branch ondansetron Yes 4mg Take 4 mg U nivers 4 mg tablet 28 by mouth ity of 14:51: every 8 [place] 55 (eight) Medical hours as Branch needed for Nausea and Vomiting (N/V). aspirin 81 Yes 81mg Take 81 mg U nivers mg EC 04-27 by mouth ity of tablet 14:51: in the [place] 55 morning. Medical Branch metoclopram Yes 10mg Take 10 mg [facility] bebo HCl 10 -28 by mouth ity o f mg tablet 14:51: every 8 [place] 55 (eight) Medical hours as Branch needed for Nausea and Vomiting (N/V). levothyroxi Yes 25ug Take 25 Uni vers ne 50 mcg 9-28 mcg by ity of tablet 14:51: mouth [place] 55 every Medical morning. Branch insulin Yes 30U inject 30 Unive rs glargine,hu 9-28 Units ity of m.rec.anlog 14:51: under the [place] (BASAGLAR 55 skin every Medi michelle KWIKPEN 12 Branch U-100 (twelve) INSULIN SC) hours. Hold PM dose if BG <150 omeprazole Yes 10mg Take 10 mg U nivers (PRILOSEC) 04-27 by mouth ity o f 2 mg/mL 14:51: daily. [place] oral 55 Medical suspension Branch Wound Yes 1{squir Apply 1 Univer s Dressings 04-27 t} Squirt to ity o f (TRIAD 14:51: area(s) as [place] WOUND 55 needed for Medical DRESSING) Other Branch Pste (wound). isosorbide Yes 20mg Take 20 mg U nivers dinitrate 04-27 by mouth 2 ity of 20 mg 14:51: (two) [place] tablet 55 times Medical daily. Branch folic Yes 1{tbl} Take 1 [facility] acid/vit B - tablet by ity of complex and 14:51: mouth [place] C 55 daily. Medical (DIALYVITE Branch 800 ORAL) tamsulosin Yes .4mg Take 0.4 Uni vers 0.4 mg 24 9-28 mg by ity of hr capsule 14:51: mouth at [place] as 55 bedtime. Medical Branch sennosides Yes 8.6mg Take 8.6 Un kraig (SENNA) 8.6 9-28 mg by ity of mg tablet 14:51: mouth [place] 55 the Medical morning Branch and 8.6 mg in the evening. escitalopra Yes 10mg Take 10 mg [facility] m oxalate 04-27 by mouth ity of 10 mg 14:51: in the [place] tablet 55 morning. Medical Branch ondansetron Yes 4mg Take 4 mg U nivers 4 mg tablet 04-27 by mouth ity of 14:51: every 8 [place] 55 (eight) Medical hours as Branch needed for Nausea and Vomiting (N/V). aspirin 81 Yes 81mg Take 81 mg U nivers mg EC 04-27 by mouth ity of tablet 14:51: in the [place] 55 morning. Medical Branch metoclopram Yes 10mg Take 10 mg [facility] bebo HCl 10 - by mouth ity o f mg tablet 14:51: every 8 [place] 55 (eight) Medical hours as Branch needed for Nausea and Vomiting (N/V). levothyroxi Yes 25ug Take 25 Uni vers ne 50 mcg 9-28 mcg by ity of tablet 14:51: mouth [place] 55 every Medical morning. Branch insulin Yes 30U inject 30 Unive rs glargine,hu 9-28 Units ity of m.rec.anlog 14:51: under the [place] (BASAGLAR 55 skin every Medi michelle KWIKPEN 12 Branch U-100 (twelve) INSULIN SC) hours. Hold PM dose if BG <150 omeprazole Yes 10mg Take 10 mg U nivers (PRILOSEC) 04-27 by mouth ity o f 2 mg/mL 14:51: daily. [place] oral 55 Medical suspension Branch Wound Yes 1{squir Apply 1 Univer s Dressings 04-27 t} Squirt to ity o f (TRIAD 14:51: area(s) as [place] WOUND 55 needed for Medical DRESSING) Other Branch Pste (wound). isosorbide Yes 20mg Take 20 mg U nivers dinitrate 04-27 by mouth 2 ity of 20 mg 14:51: (two) [place] tablet 55 times Medical daily. Branch folic Yes 1{tbl} Take 1 [facility] acid/vit B 04-27 tablet by ity of complex and 14:51: mouth [place] C 55 daily. Medical (DIALYVITE Branch 800 ORAL) tamsulosin Yes .4mg Take 0.4 Uni vers 0.4 mg 24 9-28 mg by ity of hr capsule 14:51: mouth at [place] as 55 bedtime. Medical Branch sennosides Yes 8.6mg Take 8.6 Un kraig (SENNA) 8.6 9-28 mg by ity of mg tablet 14:51: mouth in [place] 55 the Medical morning Branch and 8.6 mg in the evening. escitalopra Yes 10mg Take 10 mg [facility] m oxalate 04-27 by mouth ity of 10 mg 14:51: in the [place] tablet 55 morning. Medical Branch ondansetron Yes 4mg Take 4 mg U nivers 4 mg tablet 04-27 by mouth ity of 14:51: every 8 [place] 55 (eight) Medical hours as Branch needed for Nausea and Vomiting (N/V). aspirin 81 Yes 81mg Take 81 mg U nivers mg EC 04-27 by mouth ity of tablet 14:51: in the [place] 55 morning. Medical Branch metoclopram Yes 10mg Take 10 mg [facility] bebo HCl 10 04-27 by mouth ity o f mg tablet 14:51: every 8 [place] 55 (eight) Medical hours as Branch needed for Nausea and Vomiting (N/V). levothyroxi Yes 25ug Take 25 Uni vers ne 50 mcg 9-28 mcg by ity of tablet 14:51: mouth [place] 55 every Medical morning. Branch insulin Yes 30U inject 30 Unive rs glargine,hu 9-28 Units ity of m.rec.anlog 14:51: under the [place] (BASAGLAR 55 skin every Medi michelle KWIKPEN 12 Branch U-100 (twelve) INSULIN SC) hours. Hold PM dose if BG <150 omeprazole Yes 10mg Take 10 mg U nivers (PRILOSEC) 04-27 by mouth ity o f 2 mg/mL 14:51: daily. [place] oral 55 Medical suspension Branch Wound Yes 1{squir Apply 1 Univer s Dressings 04-27 t} Squirt to ity o f (TRIAD 14:51: area(s) as [place] WOUND 55 needed for Medical DRESSING) Other Branch Pste (wound). isosorbide Yes 20mg Take 20 mg U nivers dinitrate 04-27 by mouth 2 ity of 20 mg 14:51: (two) [place] tablet 55 times Medical daily. Branch folic Yes 1{tbl} Take 1 [facility] acid/vit B - tablet by ity of complex and 14:51: mouth [place] C 55 daily. Medical (DIALYVITE Branch 800 ORAL) tamsulosin Yes .4mg Take 0.4 Uni vers 0.4 mg 24 9-28 mg by ity of hr capsule 14:51: mouth at [place] as 55 bedtime. Medical Branch sennosides Yes 8.6mg Take 8.6 Un kraig (SENNA) 8.6 9-28 mg by ity of mg tablet 14:51: mouth in [place] 55 the Medical morning Branch and 8.6 mg in the evening. escitalopra Yes 10mg Take 10 mg [facility] m oxalate 04-27 by mouth ity of 10 mg 14:51: in the [place] tablet 55 morning. Medical Branch ondansetron Yes 4mg Take 4 mg U nivers 4 mg tablet 28 by mouth ity of 14:51: every 8 [place] 55 (eight) Medical hours as Branch needed for Nausea and Vomiting (N/V). aspirin 81 Yes 81mg Take 81 mg U nivers mg EC 04-27 by mouth ity of tablet 14:51: in the [place] 55 morning. Medical Branch metoclopram Yes 10mg Take 10 mg [facility] bebo HCl 10 28 by mouth ity o f mg tablet 14:51: every 8 [place] 55 (eight) Medical hours as Branch needed for Nausea and Vomiting (N/V). levothyroxi Yes 25ug Take 25 Uni vers ne 50 mcg 9-28 mcg by ity of tablet 14:51: mouth [place] 55 every Medical morning. Branch insulin Yes 30U inject 30 Unive rs glargine,hu 9-28 Units ity of m.rec.anlog 14:51: under the [place] (BASAGLAR 55 skin every Medi michelle KWIKPEN 12 Branch U-100 (twelve) INSULIN SC) hours. Hold PM dose if BG <150 omeprazole Yes 10mg Take 10 mg U nivers (PRILOSEC) 04-27 by mouth ity o f 2 mg/mL 14:51: daily. [place] oral 55 Medical suspension Branch Wound Yes 1{squir Apply 1 Univer s Dressings 9-28 t} Squirt to ity o f (TRIAD 14:51: area(s) as [place] WOUND 55 needed for Medical DRESSING) Other Branch Pste (wound). Wound Yes 1{squir Apply 1 Univer s Dressings 9-28 t} Squirt to ity o f (TRIAD 14:51: area(s) as [place] WOUND 55 needed for Medical DRESSING) Other Branch Pste (wound). Wound Yes 1{squir Apply 1 Univer s Dressings 9-28 t} Squirt to ity o f (TRIAD 14:51: area(s) as [place] WOUND 55 needed for Medical DRESSING) Other Branch Pste (wound). Wound Yes 1{squir Apply 1 Univer s Dressings 9-28 t} Squirt to ity o f (TRIAD 14:51: area(s) as [place] WOUND 55 needed for Medical DRESSING) Other Branch Pste (wound). Wound 2021-0 Yes 1{squir Apply 1 Univer s Dressings 9-28 t} Squirt to ity o f (TRIAD 14:51: area(s) as [place] WOUND 55 needed for Medical DRESSING) Other Branch Pste (wound). Wound 2021-0 Yes 1{squir Apply 1 Univer s Dressings 9-28 t} Squirt to ity o f (TRIAD 14:51: area(s) as [place] WOUND 55 needed for Medical DRESSING) Other Branch Pste (wound). Wound 2021-0 Yes 1{squir Apply 1 Univer s Dressings 9-28 t} Squirt to ity o f (TRIAD 14:51: area(s) as [place] WOUND 55 needed for Medical DRESSING) Other Branch Pste (wound). Wound 2021-0 Yes 1{squir Apply 1 Univer s Dressings 9-28 t} Squirt to ity o f (TRIAD 14:51: area(s) as [place] WOUND 55 needed for Medical DRESSING) Other Branch Pste (wound). Wound 2021-0 Yes 1{squir Apply 1 Univer s Dressings 9-28 t} Squirt to ity o f (TRIAD 14:51: area(s) as [place] WOUND 55 needed for Medical DRESSING) Other Branch Pste (wound). Wound 2021-0 Yes 1{squir Apply 1 Univer s Dressings 9-28 t} Squirt to ity o f (TRIAD 14:51: area(s) as [place] WOUND 55 needed for Medical DRESSING) Other Branch Pste (wound). Wound 2021-0 Yes 1{squir Apply 1 Univer s Dressings 9-28 t} Squirt to ity o f (TRIAD 14:51: area(s) as [place] WOUND 55 needed for Medical DRESSING) Other Branch Pste (wound). Wound 2021-0 Yes 1{squir Apply 1 Univer s Dressings 9-28 t} Squirt to ity o f (TRIAD 14:51: area(s) as [place] WOUND 55 needed for Medical DRESSING) Other Branch Pste (wound). Wound 2022-0 Yes 1{squir Apply 1 Univer s Dressings 9-28 t} Squirt to ity o f (TRIAD 14:51: area(s) as [place] WOUND 55 needed for Medical DRESSING) Other Branch Pste (wound). Wound 0 Yes 1{squir Apply 1 Univer s Dressings 9-28 t} Squirt to ity o f (TRIAD 14:51: area(s) as [place] WOUND 55 needed for Medical DRESSING) Other Branch Pste (wound). isosorbide Yes 20mg Take 20 mg U nivers dinitrate 04-27 by mouth 2 ity of 20 mg 12:25: (two) [place] tablet 38 times Medical daily. Branch folic Yes 1{tbl} Take 1 [facility] acid/vit B - tablet by ity of complex and 12:25: mouth [place] C 38 daily. Medical (DIALYVITE Branch 800 ORAL) tamsulosin Yes .4mg Take 0.4 Uni vers 0.4 mg 24 9-28 mg by ity of hr capsule 12:25: mouth at [place] as 38 bedtime. Medical Branch sennosides Yes 8.6mg Take 8.6 Un kraig (SENNA) 8.6 9-28 mg by ity of mg tablet 12:25: mouth in [place] 38 the Medical morning Branch and 8.6 mg in the evening. escitalopra Yes 10mg Take 10 mg [facility] m oxalate 04-27 by mouth ity of 10 mg 12:25: in the [place] tablet 38 morning. Medical Branch ondansetron Yes 4mg Take 4 mg U nivers 4 mg tablet 28 by mouth ity of 12:25: every 8 [place] 38 (eight) Medical hours as Branch needed for Nausea and Vomiting (N/V). aspirin 81 0 Yes 81mg Take 81 mg U nivers mg EC 04-27 by mouth ity of tablet 12:25: in the [place] 38 morning. Medical Branch metoclopram Yes 10mg Take 10 mg [facility] bebo HCl 10 28 by mouth ity o f mg tablet 12:25: every 8 [place] [address] (eight) Medical hours as Branch needed for Nausea and Vomiting (N/V). levothyroxi 2022-0 Yes 25ug Take 25 Uni vers ne 50 mcg 9-28 mcg by ity of tablet 12:25: mouth [place] 38 every Medical morning. Branch insulin Yes 30U inject 30 Unive rs glargine,hu 9-28 Units ity of m.rec.anlog 12:25: under the [place] (BASAGLAR 38 skin every Medi michelle KWIKPEN 12 Branch U-100 (twelve) INSULIN SC) hours. Hold PM dose if BG <150 omeprazole Yes 10mg Take 10 mg U nivers (PRILOSEC) 9-28 by mouth ity o f 2 mg/mL 12:25: daily. [place] oral 38 Medical suspension Branch Wound Yes 1{squir Apply 1 Univer s Dressings - t} Squirt to ity o f (TRIAD 12:25: area(s) as [place] WOUND 38 needed for Medical DRESSING) Other Branch Pste (wound). predniSONE Yes [id number] 40mg Take 2 Univers 20 mg 9-28 tablets by ity of tablet 00:00: mouth [place] 00 every Medical evening. Branch ciprofloxac Yes [id number] 750mg Take 1 Univers in HCl 750 9-28 tablet by ity of mg tablet 00:00: mouth [place] 00 every 12 Medical (twelve) Branch hours. budesonide Yes [id number] .5mg Inhale 2 Univers 0.5 mg/2 mL 9-28 mL in the ity of nebulizer 00:00: morning [place] solution 00 and 2 mL Medical in the Branch evening. ipratropium Yes [id number] 3mL Inhale 3 Univers -albuteroL 9-28 mL 3 ity of 0.5 mg-3 00:00: (three) [place] mg(2.5 mg 00 times Medical base)/3 mL daily as Branc h nebulizer needed for solution Wheezing. predniSONE Yes [id number] 40mg Take 2 Univers 20 mg 9-28 tablets by ity of tablet 00:00: mouth [place] 00 every Medical evening. Branch ciprofloxac Yes [id number] 750mg Take 1 [facility] in HCl 750 9-28 tablet by ity of mg tablet 00:00: mouth [place] 00 every 12 Medical (twelve) Branch hours. budesonide 2-0 Yes [id number] .5mg Inhale 2 Univers 0.5 mg/2 mL 9-28 mL in the ity of nebulizer 00:00: morning [place] solution 00 and 2 mL Medical in the Branch evening. ipratropium 2-0 Yes [id number] 3mL Inhale 3 Univers -albuteroL 9-28 mL 3 ity of 0.5 mg-3 00:00: (three) [place] mg(2.5 mg 00 times Medical base)/3 mL daily as Branc h nebulizer needed for solution Wheezing. predniSONE 2021-0 Yes [id number] 40mg Take 2 Univers 20 mg 9-28 tablets by ity of tablet 00:00: mouth [place] 00 every Medical evening. Branch ciprofloxac 2021-0 Yes [id number] 750mg Take 1 [facility] in HCl 750 9-28 tablet by ity of mg tablet 00:00: mouth [place] 00 every 12 Medical (twelve) Branch hours. budesonide 2021-0 Yes [id number] .5mg Inhale 2 Univers 0.5 mg/2 mL 9-28 mL in the ity of nebulizer 00:00: morning [place] solution 00 and 2 mL Medical in the Branch evening. ipratropium 2-0 Yes [id number] 3mL Inhale 3 Univers -albuteroL 9-28 mL 3 ity of 0.5 mg-3 00:00: (three) [place] mg(2.5 mg 00 times Medical base)/3 mL daily as Branc h nebulizer needed for solution Wheezing. predniSONE 2021-0 Yes [id number] 40mg Take 2 Univers 20 mg 9-28 tablets by ity of tablet 00:00: mouth [place] 00 every Medical evening. Branch ciprofloxac 2021-0 Yes [id number] 750mg Take 1 [facility] in HCl 750 9-28 tablet by ity of mg tablet 00:00: mouth [place] 00 every 12 Medical (twelve) Branch hours. budesonide 2-0 Yes [id number] .5mg Inhale 2 [facility] 0.5 mg/2 mL 9-28 mL in the ity of nebulizer 00:00: morning [place] solution 00 and 2 mL Medical in the Branch evening. ipratropium 2-0 Yes [id number] 3mL Inhale 3 Univers -albuteroL 9-28 mL 3 ity of 0.5 mg-3 00:00: (three) [place] mg(2.5 mg 00 times Medical base)/3 mL daily as Branc h nebulizer needed for solution Wheezing. predniSONE 2021-0 Yes [id number] 40mg Take 2 [facility] 20 mg 9-28 tablets by ity of tablet 00:00: mouth [place] 00 every Medical evening. Branch ciprofloxac 2021-0 Yes [id number] 750mg Take 1 [facility] in HCl 750 9-28 tablet by ity of mg tablet 00:00: mouth [place] 00 every 12 Medical (twelve) Branch hours. budesonide 2021-0 Yes [id number] .5mg Inhale 2 [facility] 0.5 mg/2 mL 9-28 mL in the ity of nebulizer 00:00: morning [place] solution 00 and 2 mL Medical in the Branch evening. ipratropium 2021-0 Yes [id number] 3mL Inhale 3 [facility] -albuteroL 9-28 mL 3 ity of 0.5 mg-3 00:00: (three) [place] mg(2.5 mg 00 times Medical base)/3 mL daily as Branc h nebulizer needed for solution Wheezing. budesonide 2021-0 Yes [id number] .5mg Inhale 2 [facility] 0.5 mg/2 mL 9-28 mL in the ity of nebulizer 00:00: morning [place] solution 00 and 2 mL Medical in the Branch evening. ipratropium 2-0 Yes [id number] 3mL Inhale 3 [facility] -albuteroL 9-28 mL 3 ity of 0.5 mg-3 00:00: (three) [place] mg(2.5 mg 00 times Medical base)/3 mL daily as Branc h nebulizer needed for solution Wheezing. budesonide 2021-0 Yes [id number] .5mg Inhale 2 [facility] 0.5 mg/2 mL 9-28 mL in the ity of nebulizer 00:00: morning [place] solution 00 and 2 mL Medical in the Branch evening. ipratropium 2-0 Yes [id number] 3mL Inhale 3 [facility] -albuteroL 9-28 mL 3 ity of 0.5 mg-3 00:00: (three) [place] mg(2.5 mg 00 times Medical base)/3 mL daily as Branc h nebulizer needed for solution Wheezing. budesonide 2022-0 Yes [id number] .5mg Inhale 2 [facility] 0.5 mg/2 mL 9-28 mL in the ity of nebulizer 00:00: morning [place] solution 00 and 2 mL Medical in the Branch evening. ipratropium 2021-0 Yes [id number] 3mL Inhale 3 [facility] -albuteroL 9-28 mL 3 ity of 0.5 mg-3 00:00: (three) [place] mg(2.5 mg 00 times Medical base)/3 mL daily as Branc h nebulizer needed for solution Wheezing. budesonide 2021-0 Yes [id number] .5mg Inhale 2 [facility] 0.5 mg/2 mL 9-28 mL in the ity of nebulizer 00:00: morning [place] solution 00 and 2 mL Medical in the Branch evening. ipratropium 2021-0 Yes [id number] 3mL Inhale 3 [facility] -albuteroL 9-28 mL 3 ity of 0.5 mg-3 00:00: (three) [place] mg(2.5 mg 00 times Medical base)/3 mL daily as Branc h nebulizer needed for solution Wheezing. budesonide 2021-0 Yes [id number] .5mg Inhale 2 [facility] 0.5 mg/2 mL 9-28 mL in the ity of nebulizer 00:00: morning [place] solution 00 and 2 mL Medical in the Branch evening. ipratropium 2021-0 Yes [id number] 3mL Inhale 3 [facility] -albuteroL 9-28 mL 3 ity of 0.5 mg-3 00:00: (three) [place] mg(2.5 mg 00 times Medical base)/3 mL daily as Branc h nebulizer needed for solution Wheezing. budesonide 2021-0 Yes [id number] .5mg Inhale 2 [facility] 0.5 mg/2 mL 9-28 mL in the ity of nebulizer 00:00: morning [place] solution 00 and 2 mL Medical in the Branch evening. ipratropium 2-0 Yes [id number] 3mL Inhale 3 [facility] -albuteroL 9-28 mL 3 ity of 0.5 mg-3 00:00: (three) [place] mg(2.5 mg 00 times Medical base)/3 mL daily as Branc h nebulizer needed for solution Wheezing. budesonide 2021-0 Yes [id number] .5mg Inhale 2 [facility] 0.5 mg/2 mL 9-28 mL in the ity of nebulizer 00:00: morning [place] solution 00 and 2 mL Medical in the Branch evening. ipratropium 2021-0 Yes [id number] 3mL Inhale 3 [facility] -albuteroL 9-28 mL 3 ity of 0.5 mg-3 00:00: (three) [place] mg(2.5 mg 00 times Medical base)/3 mL daily as Branc h nebulizer needed for solution Wheezing. budesonide 2021-0 Yes [id number] .5mg Inhale 2 [facility] 0.5 mg/2 mL 9-28 mL in the ity of nebulizer 00:00: morning [place] solution 00 and 2 mL Medical in the Branch evening. ipratropium 2021-0 Yes [id number] 3mL Inhale 3 [facility] -albuteroL 9-28 mL 3 ity of 0.5 mg-3 00:00: (three) [place] mg(2.5 mg 00 times Medical base)/3 mL daily as Branc h nebulizer needed for solution Wheezing. budesonide 2021-0 Yes [id number] .5mg Inhale 2 [facility] 0.5 mg/2 mL 9-28 mL in the ity of nebulizer 00:00: morning [place] solution 00 and 2 mL Medical in the Branch evening. ipratropium 2021-0 Yes [id number] 3mL Inhale 3 [facility] -albuteroL 9-28 mL 3 ity of 0.5 mg-3 00:00: (three) [place] mg(2.5 mg 00 times Medical base)/3 mL daily as Branc h nebulizer needed for solution Wheezing. budesonide 2021-0 Yes [id number] .5mg Inhale 2 [facility] 0.5 mg/2 mL 9-28 mL in the ity of nebulizer 00:00: morning [place] solution 00 and 2 mL Medical in the Branch evening. ipratropium 2-0 Yes [id number] 3mL Inhale 3 [facility] -albuteroL 9-28 mL 3 ity of 0.5 mg-3 00:00: (three) [place] mg(2.5 mg 00 times Medical base)/3 mL daily as Branc h nebulizer needed for solution Wheezing. budesonide 2021-0 Yes [id number] .5mg Inhale 2 [facility] 0.5 mg/2 mL 9-28 mL in the ity of nebulizer 00:00: morning [place] solution 00 and 2 mL Medical in the Branch evening. ipratropium 2021-0 Yes [id number] 3mL Inhale 3 [facility] -albuteroL 9-28 mL 3 ity of 0.5 mg-3 00:00: (three) [place] mg(2.5 mg 00 times Medical base)/3 mL daily as Branc h nebulizer needed for solution Wheezing. budesonide 2021-0 Yes [id number] .5mg Inhale 2 [facility] 0.5 mg/2 mL 9-28 mL in the ity of nebulizer 00:00: morning [place] solution 00 and 2 mL Medical in the Branch evening. ipratropium 2021-0 Yes [id number] 3mL Inhale 3 [facility] -albuteroL 9-28 mL 3 ity of 0.5 mg-3 00:00: (three) [place] mg(2.5 mg 00 times Medical base)/3 mL daily as Branc h nebulizer needed for solution Wheezing. budesonide 2021-0 Yes [id number] .5mg Inhale 2 [facility] 0.5 mg/2 mL 9-28 mL in the ity of nebulizer 00:00: morning [place] solution 00 and 2 mL Medical in the Branch evening. ipratropium 2021-0 Yes [id number] 3mL Inhale 3 [facility] -albuteroL 9-28 mL 3 ity of 0.5 mg-3 00:00: (three) [place] mg(2.5 mg 00 times Medical base)/3 mL daily as Branc h nebulizer needed for solution Wheezing. budesonide 2021-0 Yes [id number] .5mg Inhale 2 [facility] 0.5 mg/2 mL 9-28 mL in the ity of nebulizer 00:00: morning [place] solution 00 and 2 mL Medical in the Branch evening. ipratropium 2-0 Yes [id number] 3mL Inhale 3 [facility] -albuteroL 9-28 mL 3 ity of 0.5 mg-3 00:00: (three) [place] mg(2.5 mg 00 times Medical base)/3 mL daily as Branc h nebulizer needed for solution Wheezing. budesonide 2021-0 Yes [id number] .5mg Inhale 2 [facility] 0.5 mg/2 mL 9-28 mL in the ity of nebulizer 00:00: morning [place] solution 00 and 2 mL Medical in the Branch evening. ipratropium Yes [id number] 3mL Inhale 3 Univers -albuteroL 9-28 mL 3 ity of 0.5 mg-3 00:00: (three) [place] mg(2.5 mg 00 times Medical base)/3 mL daily as Branc h nebulizer needed for solution Wheezing. budesonide Yes [id number] .5mg Inhale 2 [facility] 0.5 mg/2 mL 9-28 mL in the ity of nebulizer 00:00: morning [place] solution 00 and 2 mL Medical in the Branch evening. ipratropium Yes [id number] 3mL Inhale 3 Univers -albuteroL 9-28 mL 3 ity of 0.5 mg-3 00:00: (three) [place] mg(2.5 mg 00 times Medical base)/3 mL daily as Branc h nebulizer needed for solution Wheezing. predniSONE 2021- No [id number] 40mg Take 2 [facility] 20 mg 9-28 10-25 tablets by ity of tablet 00:00: 00:00 mouth [place] 00 :00 every Medical evening. Branch ciprofloxac 2021- No [id number] 750mg Take 1 [facility] in HCl 750 9-28 10-25 tablet by ity of mg tablet 00:00: 00:00 mouth [place] 00 :00 every 12 Medical (twelve) Branch hours. predniSONE 2021- No [id number] 40mg Take 2 [facility] 20 mg 9-28 10-25 tablets by ity of tablet 00:00: 00:00 mouth [place] 00 :00 every Medical evening. Branch ciprofloxac 2021- No [id number] 750mg Take 1 [facility] in HCl 750 9-28 10-25 tablet by ity of mg tablet 00:00: 00:00 mouth [place] 00 :00 every 12 Medical (twelve) Branch hours. bupivacaine 2021- No PRN, Unive rs (preserv 04-26 Starting ity of free) 13:55: 17:06 on Mon [place] (SENSORCAIN 00 :56 04/26/22 at [facility]) 0.25 0855, Branch % (2.5 Until Mon mg/mL) 04/26/22 at injection 1206, Routine, Intra-op water for 2021- No PRN, Univers irrigation 04-26 Starting ity of irrigation 13:40: 17:06 on Tue [place] solution 00 :56 04/26/22 at Medic al 0840, Branch Until 04/26/22 at 1206, Routine, Intra-op NaCl 0.45% 2021- No 1000mL at 100 Un kraig (1/2NS) IV 04-26 mL/hr, ity of infusion 00:15: 14:34 1,000 mL, [place] as 1,000 mL 00 :19 IV Medical Infusion, Branch CONTINUOUS , Starting on Mon04/25/22 at 1915, Until Mon04/27/22 at 0934, Routine insulin Yes 5U 5 Units, Univer s lispro 9-25 Subcutaneo ity of (human) 23:00: us, 5X [place] (HumaLOG 00 DAY, First Medic al U-100) dose on Branch injection 5 Sun Units 04/24/22 at 1800, Until Discontinu ed, Routine insulin Yes 5U 5 Units, Univer s lispro 9-25 Subcutaneo ity of (human) 23:00: us, 5X [place] (HumaLOG 00 DAY, First Medic al U-100) dose on Branch injection 5 Sun Units 04/24/22 at 1800, Until Discontinu ed, Routine Sliding 2021-0 Yes Subcutaneo Univ ers Scale 9-25 us, Q4H, ity of Insulin - 01:00: First dose [place] Lispro 00 (after Medical (HumaLOG) + last Branch Fsbg modificati Testing on) on 04/23/22 at 2000, Until Discontinu ed, Routine insulin 2021-0 Yes 30U 30 Units, Unive rs glargine 9-25 Subcutaneo ity o f (LANTUS 01:00: us, Q12H, [place] U-100) 00 First dose Medical injection (after Branch 30 Units last modificati on) on 04/23/22 at 2000, Until Discontinu ed, Routine Sliding 0 Yes Subcutaneo Univ ers Scale 9-25 us, Q4H, ity of Insulin - 01:00: First dose [place] Lispro 00 (after Medical (HumaLOG) + last Branch Fsbg modificati Testing on) on [facility] 04/23/22 at 2000, Until Discontinu ed, Routine insulin 0 Yes 30U 30 Units, Unive rs glargine 04-24 Subcutaneo ity o f (LANTUS 01:00: us, Q12H, [place] U-100) 00 First dose Medical injection (after Branch 30 Units last modificati on) on [facility] 04/23/22 at 2000, Until Discontinu ed, Routine Sliding 2021- No Subcutaneo Uni vers Scale 04-23 us, Q6H, ity of Insulin-Reg 23:00: 00:15 First dose [place] ular + Fsbg 00 :16 (after Medica l Testing last Branch modificati on) on [facility] 04/23/22 at 1800, Until Discontinu ed, Routine traMADoL 2021-0 Yes 50mg 50 mg, Univers (ULTRAM) 04-23 Oral, ity of tablet 50 16:25: Q6HPRN, [place] mg 59 Starting Medical on [facility] 04/23/22 at 1125, Until Discontinu ed, Routine, Pain (scale 4-6) traMADoL 0 Yes 50mg 50 mg, Univers (ULTRAM) 04-23 Oral, ity of tablet 50 16:25: Q6HPRN, [place] mg 59 Starting Medical on [facility] 04/23/22 at 1125, Until Discontinu ed, Routine, Pain (scale 4-6) Sliding 2021- No Subcutaneo Uni vers Scale 04-2324 us, TID ity of Insulin - 13:00: 20:06 MEALS+HS, [place] Lispro 00 :47 First dose Medical (HumaLOG) + on [facility] Branch Fsbg 04/23/22 at Testing 0800, Until Discontinu ed, Routine glucagon 2021-0 Yes 1mg 1 mg, Univers (GLUCAGEN 04-23 Intramuscu ity of DIAGNOSTIC 11:58: lar, PRN, [place] KIT) 32 Starting Medical injection 1 on [facility] 04/23/22 at 0658, Until Discontinu ed, JUMA, Blood Glucose < or = 70 mg/dL and patient is unable to swallow or has mental changes. dextrose 50 2021-0 Yes 25mL 25 mL, Univ ers % in water 24 Slow IV ity of (D50W) 11:58: Push, PRN, [place] injection 32 Starting Medica l 25 mL on [facility] 04/23/22 at 0658, Until Discontinu ed, JUMA, Blood Glucose < or = 70 mg/dL and patient is unable to swallow or has mental status changes. glucagon 2021-0 Yes 1mg 1 mg, Univers (GLUCAGEN 04-23 Intramuscu ity of DIAGNOSTIC 11:58: lar, PRN, [place] KIT) 32 Starting Medical injection 1 on [facility] 04/23/22 at 0658, Until Discontinu ed, JUMA, Blood Glucose < or = 70 mg/dL and patient is unable to swallow or has mental changes. dextrose 50 2021-0 Yes 25mL 25 mL, Univ ers % in water 24 Slow IV ity of (D50W) 11:58: Push, PRN, [place] injection 32 Starting Medica l 25 mL on [facility] 04/23/22 at 0658, Until Discontinu ed, JUMA, Blood Glucose < or = 70 mg/dL and patient is unable to swallow or has mental status changes. atorvastati 2021-0 Yes 20mg 20 mg, Univ ers n (LIPITOR) 9-24 Oral, QHS, it y of tablet 20 02:00: First dose [place] mg 00 on [facility] 04/22/22 at Branch 2100, Until Discontinu ed, Routine atorvastati 2021-0 Yes 20mg 20 mg, Univ ers n (LIPITOR) 924 Oral, QHS, it y of tablet 20 02:00: First dose [place] mg 00 on Mon [facility] 04/22/22 at Branch 2100, Until Discontinu ed, Routine predniSONE 2021-0 Yes 40mg 40 mg, Unive rs (DELTASONE) 9-23 Oral, QPM, it y of tablet 40 22:00: First dose [place] mg 00 on Mon [facility] 04/22/22 at Branch 1700, Until Discontinu ed, Routine predniSONE 2-0 Yes 40mg 40 mg, Unive rs (DELTASONE) 9-23 Oral, QPM, it y of tablet 40 22:00: First dose [place] mg 00 on Fri Medical 04/22/22 at Branch 1700, Until Discontinu ed, Routine furosemide 2021- No [id number] 80mg 80 mg, Univers (LASIX) 04-22 Slow IV ity of injection 18:45: 19:23 Push, [place] 80 mg 00 :00 ONCE, 1 Medical dose, On Branch 04/22/22 at 1345, STAT escitalopra Yes 10mg 10 mg, [facility] ers m oxalate 04-22 Oral, ity of (LEXAPRO) 14:00: DAILY, [place] tablet 10 00 First dose Medi michelle mg on Fri Branch 04/22/22 at 0900, Until Discontinu ed, Routine tamsulosin Yes .4mg 0.4 mg, [facility] ers (FLOMAX) 04-22 Oral, ity of capsule 0.4 14:00: DAILY, [place] mg 00 First dose Medical on Fri Branch 04/22/22 at 0900, Until Discontinu ed, Routine escitalopra Yes 10mg 10 mg, [facility] m oxalate 04-22 Oral, ity of (LEXAPRO) 14:00: DAILY, [place] tablet 10 00 First dose Medi michelle mg on Fri Branch 04/22/22 at 0900, Until Discontinu ed, Routine tamsulosin Yes .4mg 0.4 mg, [facility] ers (FLOMAX) 04-22 Oral, ity of capsule 0.4 14:00: DAILY, [place] mg 00 First dose Medical on Fri Branch 04/22/22 at 0900, Until Discontinu ed, Routine sodium No 4mL 4 mL, Univers chloride 7% 04-22 Inhalation i ty of (HYPER-SHAN) 14:00: 15:13 , DAILY, [place] nebulizer 00 :35 First dose Medi michelle solution 4 on Fri Branch mL 04/22/22 at 0900, Until Discontinu ed, Routine ceFEPIme 2021- No 1000mg 1,000 mg, U nivers (MAXIPIME) 04-22 IV ity of 1,000 mg in 13:30: 15:23 Piggyback, [place] NaCl 0.9% 00 :58 Q12H ABX, Medic al (NS) 50 mL 16 doses, Bran ch MINI-BAG First dose on Mon04/22/22 at 0830, Last dose on Mon04/29/22 at 2030, Administer over 4 Hours, 50 mL
Reas on for Anti-Infec tive: Empiric Therapy for Suspected Infection< br>Empiric Therapy Site: Respirator y
Durat ion of therapy: 5 days NaCl 0.9% 2021- No 1000mL at 100 Uni vers (NS) IV 04-22 mL/hr, IV ity of infusion 13:30: 23:11 Infusion, [place] as 1,000 mL 00 :25 CONTINUOUS Medic al , Starting Branch on Mon04/22/22 at 0830, Until Mon04/25/22 at 1811, Routine metroNIDAZO 2021- No 500mg 500 mg, IV Univers LE in NaCl 04-22 Infusion, ity of (iso-os) 13:30: 15:26 Q8H ABX, [place] (FLAGYL 00 :24 21 doses, Medical I.V.) RTU First dose Bran ch IV infusion on Mon 500 mg 04/22/22 at 0830, Last dose on Mon04/29/22 at 0030, Administer over 75 Minutes, 100 mL
Reas on for Anti-Infec tive: Empiric Therapy for Suspected Infection< br>Empiric Therapy Site: Respirator y
Durat ion of therapy: 5 days insulin 2021- No 10U 10 Units, Univ ers regular 04-22 IV Push, ity of human 13:30: 13:26 ONCE, 1 [place] (HUMULIN R) 00 :00 dose, On Medi michelle injection Fri Branch 10 Units 04/22/22 at 0830, JUMA
In dication for insulin: Hyperkalem ia- Please use the Insulin Protocol for Hyperkalem ia order set calcium Yes 2g 2 g, IV Univers gluconate 2 04-22 Infusion, ity of g in NaCl 13:19: at 200 [place] 100 mL 09 mL/hr Medical (ISO-OSM) Administer Bran ch RTU IV over 30 infusion 2 Minutes, g PRN - SEE INSTRUCTIO NS, Starting on Mon04/22/22 at 0819, Until Discontinu ed, STAT, Potassium greater than or equal to 6.0 mEq/L with our without EKG changes calcium Yes 2g 2 g, IV Univers gluconate 2 04-22 Infusion, ity of g in NaCl 13:19: at 200 [place] 100 mL 09 mL/hr Medical (ISO-OSM) Administer Bran ch RTU IV over 30 infusion 2 Minutes, g PRN - SEE INSTRUCTIO NS, Starting on Mon04/22/22 at 0819, Until Discontinu ed, STAT, Potassium greater than or equal to 6.0 mEq/L with our without EKG changes NaCl 0.9% 2021- No 500mL at 999 Univ ers (NS) bolus 04-22 mL/hr, 500 it y of infusion 13:15: 00:00 mL, IV [place] 500 mL 00 :00 Piggyback, Medical ONCE, 1 Branch dose, On Mon04/22/22 at 0815, STAT Sliding 2021- No Subcutaneo Uni vers Scale 04-22 , TID ity of Insulin - 13:00: 11:59 MEALS, [place] Lispro 00 :04 First dose Medical (HumaLOG) + on Mon Branch Fsbg 04/22/22 at Testing 0800, Until Discontinu ed, Routine sodium 2021- No 30g 30 g, Univers polystyrene 04-22 Enteral, ity of sulfonate 13:00: 13:38 ONCE, 1 [place] (KAYEXALATE 00 :00 dose, On Medi michelle ) 15 Mon Branch gram/60 mL 04/22/22 at suspension 0800, 30 g Routine furosemide 0 Yes 40mg 40 mg, Unive rs (LASIX) 04-22 Slow IV ity of injection 12:30: Push, [place] 40 mg 00 DAILY, Medical First dose Branch on Mon04/22/22 at 0730, Until Discontinu ed, Routine furosemide 0 Yes 40mg 40 mg, Unive rs (LASIX) 04-22 Slow IV ity of injection 12:30: Push, [place] 40 mg 00 DAILY, Medical First dose Branch on Mon04/22/22 at 0730, Until Discontinu ed, Routine heparin 0 Yes 5000U 5,000 Univers (porcine) 9-23 Units, ity of injection 11:00: Subcutaneo [place] 5,000 Units 00 us, Q8H, Medi michelle First dose Branch on Mon04/22/22 at 0600, Until Discontinu ed, Routine levothyroxi 0 Yes 25ug 25 mcg, Uni vers ne 04-22 Oral, ity of (SYNTHROID) 11:00: QAM-0600, [place] tablet 25 00 First dose Medi michelle mcg on Mon Branch 04/22/22 at 0600, Until Discontinu ed, Routine heparin 0 Yes 5000U 5,000 Univers (porcine) - Units, ity of injection 11:00: Subcutaneo [place] 5,000 Units 00 us, Q8H, Medi michelle First dose Branch on Mon04/22/22 at 0600, Until Discontinu ed, Routine levothyroxi Yes 25ug 25 mcg, Uni vers ne 04-22 Oral, ity of (SYNTHROID) 11:00: QAM-0600, [place] tablet 25 00 First dose Medi michelle mcg on Mon Branch 04/22/22 at 0600, Until Discontinu ed, Routine piperacilli No 3.375g 3.375 g, Univers n-tazobacta 04-22 IV ity of m (ZOSYN) 11:00: 12:17 Piggyback, [place] 3.375 g in 00 :16 Q8H ABX, Medic al NaCl 0.9% 30 doses, Branc h (NS) 50 mL First dose MINI-BAG (after last reorder) on Mon04/22/22 at 0600, Last dose on Mon05/01/22 at 2200, Administer over 30 Minutes, 50 mL
Reas on for Anti-Infec tive: Empiric Therapy for Suspected Infection< br>Empiric Therapy Site: Respirator y
Durat ion of therapy: 72 hours methylpredn 2021- No 125mg 125 mg, U nivers isolone sod 04-22 Intravenou i ty of succ 07:15: 07:24 s, ONCE, 1 [place] (SOLU-MEDRO 00 :00 dose, On Medi michelle L) Fri Branch injection 04/22/22 at 125 mg 0215, 2 mL budesonide 2022-0 Yes .5mg 0.5 mg, Univ ers (PULMICORT 04-22 Inhalation ity of RESPULE) 06:30: , BID, [place] nebulizer 00 First dose Medi michelle solution on Fri Branch 0.5 mg 04/22/22 at 0130, Until Discontinu ed, Routine ipratropium 2022-0 Yes 3mL 3 mL, Unive rs -albuteroL 04-22 Inhalation ity of (DUONEB) 06:30: , QID, [place] 0.5 mg-3 00 First dose Medic al mg(2.5 mg on Fri Branch base)/3 mL 04/22/22 at nebulizer 0130, solution 3 Until mL Discontinu ed, Routine aspirin 2022-0 Yes 81mg 81 mg, Univers chewable 04-22 Oral, QAM ity of tablet 81 06:30: WITH [place] mg 00 BREAKFAST, Medical First dose Branch on Mon04/22/22 at 0130, Until Discontinu ed, Routine carvediloL 2022-0 Yes 25mg 25 mg, Unive rs (COREG) 04-22 Oral, BID ity of tablet 25 06:30: MEALS, [place] mg 00 First dose Medical on Fri Branch 04/22/22 at 0130, Until Discontinu ed, Routine lactobacill 2022-0 Yes .5mg 0.5 mg, Uni vers us 04-22 Oral, BID, ity of acidophilus 06:30: First dose [place] tablet 0.5 00 on Fri Medical mg 04/22/22 at Branch 0130, Until Discontinu ed, Routine budesonide 2022-0 Yes .5mg 0.5 mg, Univ ers (PULMICORT 04-22 Inhalation ity of RESPULE) 06:30: , BID, [place] nebulizer 00 First dose Medi michelle solution on Fri Branch 0.5 mg 04/22/22 at 0130, Until Discontinu ed, Routine ipratropium 2022-0 Yes 3mL 3 mL, Unive rs -albuteroL 04-22 Inhalation ity of (DUONEB) 06:30: , QID, [place] 0.5 mg-3 00 First dose Medic al mg(2.5 mg on Fri Branch base)/3 mL 04/22/22 at nebulizer 0130, solution 3 Until mL Discontinu ed, Routine aspirin Yes 81mg 81 mg, Univers chewable 04-22 Oral, QAM ity of tablet 81 06:30: WITH [place] mg 00 BREAKFAST, Medical First dose Branch on Mon04/22/22 at 0130, Until Discontinu ed, Routine carvediloL Yes 25mg 25 mg, Unive rs (COREG) 04-22 Oral, BID ity of tablet 25 06:30: MEALS, [place] mg 00 First dose Medical on Mon Branch 04/22/22 at 0130, Until Discontinu ed, Routine lactobacill Yes .5mg 0.5 mg, Uni vers us 04-22 Oral, BID, ity of acidophilus 06:30: First dose [place] tablet 0.5 00 on Mon Medical mg 04/22/22 at Branch 0130, Until Discontinu ed, Routine insulin 2- No 20U 20 Units, Univ ers glargine 04-22 Subcutaneo ity of (LANTUS 06:15: 20:03 us, Q12H, [place] U-100) 00 :17 First dose Medical injection on Mon Branch 20 Units 04/22/22 at 0115, Until Discontinu ed, Routine piperacilli 2021- No 3.375g 3.375 g, Univers n-tazobacta 04-22 IV ity of m (ZOSYN) 01:45: 02:58 Piggyback, [place] 3.375 g in 00 :00 ONCE, 1 Medica l NaCl 0.9% dose, On Branch (NS) 50 mL [place] MINI-BAG 04/21/22 at 2045, Administer over 30 Minutes, 50 mL
[facility] for Anti-Infec tive: Empiric Therapy for Suspected Infection< br>Empiric Therapy Site: Respirator y
Durat ion of therapy: 72 hours insulin Yes 3 unit, [place] lispro 100 8-16 SUB-Q, l units/mL 17:01: Sliding [place] n injectable 00 Scale, PRN solution Blood Glucose Results, 0 Refill(s) lansoprazol Yes 30 mg = 10 Memoria e 3 mg/mL 8-16 mL, GT, l oral 16:52: Daily, 0 [place] suspension 00 Refill(s) insulin Yes 60 unit, Memori a isophane 8-16 SUB-Q, l (NPH) 100 16:51: Q8H, 0 [place] n units/mL 00 Refill(s) human recombinant subcutaneou s suspension guaiFENesin Yes 400 mg = Me moria 8-16 20 mL, l 16:48: PEG, QID, [place] 00 0 Refill(s) insulin No Notes: [place] lispro 14 (Same as: l 02:08: Humalog) [place] 00 Roll in palms of hands gently; Do not shake vigorously . WASTE: F/P - Black; E - Municipal Trash Bin Stable for 28 days at room temperatur e. Expires in days from ____Date pneumococca No Notes: Isidro elisa l 23-valent 03-10 (Same as: l vaccine 19:00: Pneumovax Lo nn injectable 00 23) solution Refrigerat e sodium No 2,000 mL, Memori a chloride 8-10 0 ml/hr, l 0.9% 13:08: Infuse [place] (Priming 00 Over: 0 and hr, Route: Maintenance IV, 2,000, ) Drug form: INJ, PRN, Dosing Weight 91.5 kg, Start date: 03/09/22 8:08:00 CDT, Stop date: 03/17/22 20:07:00 CDT, For use by Dialysis nurse only, PRN Dialysis, 0 insulin No Notes: [place] isophane 03-08 (Same as: l 21:00: Humulin N) [place] 00 Roll in palms of hands gently; Do not shake vigorously . WASTE: F/P - Black; E - Municipal Trash Bin Stable for 31 days at room temperatur e Expires in days from ____Date ceftolozane No 2.25 gm, Me moria -tazobactam 03-08 Route: l 1 g-0.5 g 16:00: IVPB, [place] intravenous 00 [id number], injection Dosing Weight 91.5, kg, CrCl 15 - 29 ml/min, Start date: 03/08/22 11:00:00 CDT, Duration: 7 day, Stop date: 03/15/22 3:00:00 CDT, ABX Indication : Pneumonia ciprofloxac No Notes: Do M emoria in 03-08 not l 16:00: refrigerat e carvedilol No Notes: Memor ia 8-07 Give with l 14:00: food. [place] 00 (Same As: Coreg) hydrALAZINE No Notes: Isidro elisa 8-07 (Same as: l 10:50: Apresoline ) Push over 5 minutes metoprolol No Notes: Memor ia tartrate 8-07 (Same as: l 02:00: Lopressor) Prevacid No Notes: [place]oria 8-06 Take 1 l 14:00: hour [place] 00 before or 2 hours after meal; Expires in 14 days. Shake well before use. (Same as:Prevaci d) Compound ed Product - formulatio n not commercial ly available* * clopidogrel No Notes: Isidro elisa 8-06 (Same As: l 14:00: Plavix) escitalopra No Notes: Isidro elisa m 8-06 (Same as: l 14:00: Lexapro) Levothroid No Notes: Memor ia 8-06 Take 1 l 14:00: hour [place] 00 before or 2 hours after meal; Enteral feeds may interefere with the absorption of this medication .(Same as:Levothr oid, Synthroid) Protonix No Notes: Memoria 8-06 Tablet l 14:00: should not Leopold 00 be chewed or crushed. (Same as: Protonix) senna No Notes: Memoria 8-06 (Same as: l 14:00: Senokot) amLODIPine No Notes: Memor ia 8-06 (Same as: l 14:00: Norvasc) finasteride No Notes: Isidro elisa 03-05 (Same as: l 14:00: Proscar) Buck 00 "Do Not Crush" Women of childbeari ng age should not touch or handle broken tablets Hazardous Drug Group 3:Reproduc tive risk Hazardous Drug -- Refer to safe handling procedure PPE Matrix heparin No Notes: Memoria 5000 03-05 porcine l units/mL 02:00: heparin Stephen n injectable 00 solution vancomycin No 2000 mg: Me moria + Sodium 03-05 infuse l Chloride 02:00: over 2.5 Lo nn 0.9% IV 250 00 hours For mL adult patients only: Round to nearest 250 mg per Medical Staff approval MEDICATION WASTE Product Size: 1000 mg Product Wasted: ___ mg insulin No Notes: Memoria isophane 03-04 (Same as: l 19:00: Humulin N) Roll in palms of hands gently; Do not shake vigorously . WASTE: F/P - Black; E - Municipal Trash Bin Stable for 31 days at room temperatur e Expires in days from ____Date finasteride No Notes: Isidro elisa 03-04 (Same as: l 18:54: Proscar) "Do Not Crush" Women of childbeari ng age should not touch or handle broken tablets Hazardous Drug Group 3:Reproduc tive risk Hazardous Drug -- Refer to safe handling procedure PPE Matrix aspirin No Notes: Memoria 03-04 Take with l 14:00: food. heparin No 4,000 Memoria -05 unit, 4 l 12:49: mL, Route: IV Lock, Drug form: INJ, After Dialysis, Dosing Weight 91.5, kg, PRN Dialysis, Start date: 03/04/22 7:49:00 CDT, Duration: 30 day, Stop date: 04/03/22 7:48:00 CDT, 0 atorvastati No Notes: Isidro elisa n 805 (Same as: l 02:00: Lipitor) guaiFENesin No Notes: Isidro elisa - (Same as: l 02:00: Robitussin ) Dextrose No 12.5 gm, Memor ia 50% Syringe 03-04 25 mL, l (D50W) 01:10: Route: Leopold 00 IVP, Drug Form: INJ, Dosing Weight 91.5, kg, PRN, PRN Blood Glucose Results, Start date: 03/03/22 20:10:00 CDT, Duration: 30 day, Stop date: 04/02/22 20:09:00 CDT, 0 glucagon No 1 mg, Memoria 03-04 Route: IM, l 01:10: Drug form: Leopold 00 PDR/INJ, PRN, Dosing Weight 91.5, kg, PRN Blood Glucose Results, Start date: 03/03/22 20:10:00 CDT, Duration: 30 day, Stop date: 04/02/22 20:09:00 CDT, 0 insulin No Notes: Memoria lispro 03-04 (Same as: l 01:10: Humalog) Leopold 00 Roll in palms of hands gently; Do not shake vigorously . WASTE: F/P - Black; E - Municipal Trash Bin Stable for 28 days at room temperatur e. Expires in days from ____Date Merrem + No Notes: Memoria Sodium - Same as l Chloride 23:00: Merrem Buck 0.9% IV 100 00 mL guaiFENesin No Notes: Isidro elisa 03-03 (Same as: l 22:47: Robitussin Buck 00 ) vancomycin No 2000 mg: Me moria + Sodium 03-03 infuse l Chloride 22:41: over 2.5 Lo nn 0.9% IV 500 00 hours For mL adult patients only: Round to nearest 250 mg per Medical Staff approval MEDICATION WASTE Product Size: 1000 mg Product Wasted: ___ mg Vancomycin No Notes: Memor ia Pharmacy 03-03 Vancomycin l Dosing 22:35: Pharmacy Buck Dosing Protocol PHARMAC Y USE ONLY Note: This is not a medication order. This is a consultati on order. albuterol-i No Notes: Isidro elisa pratropium 03-03 (Same as: l 2.5-0.5 mg 22:35: Duoneb) Herm bhavin inhalation 00 solution vancomycin No 1 gm, Memori a 03-03 Route: l 22:32: IVPB, Drug form: INJ, ONCE, Dosing Weight 91.5, kg, Priority: NOW, Start date: 03/03/22 17:32:00 CDT, Stop date: 03/03/22 17:32:00 CDT, ABX Indication : Pneumonia Flexeril No Notes: Memoria 03-03 (Same As: l 22:04: Flexeril) guaiFENesin No 300 mg, Mem oria 03-03 PO, 0 l 16:04: Refill(s) glyBURIDE No 2.5 mg, Memor ia 03-03 PO, Daily, l 16:03: 0 Refill(s) cloNIDine No 0.1 mg = 1 Me moria 0.1 mg oral 03-03 tab, PO, l tablet 16:00: BID, 0 Refill(s) aspirin No Notes: Do Memor ia 03-03 not crush l 14:00: or chew. (Same As: Ecotrin) azithromyci No Notes: Isidro elisa n + Sodium 03-03 (Same As: l Chloride 11:00: Zithromax Herm bhavin 0.9% IV 250 00 IV) mL cefTRIAXone No Notes: Isidro elisa + sterile 03-03 (Same As: l water 10 mL 11:00: Rocephin). MEDICATION WASTE Product Size: 1000 mg Product Wasted: ___ mg Levothroid Yes 50 Memoria 50 mcg 03-03 microgram l (0.05 mg) 06:08: = 1 tab, Herm bhavin oral tablet 00 PO, Daily, # 30 tab, 0 Refill(s) QUEtiapine Yes 25 mg, PO, M emoria 8-04 PRN l 06:07: Agitation, Leopold 00 0 Refill(s) Protonix 40 2021-0 No 40 mg = 1 M emoria mg oral 8-04 tab, PO, l enteric 06:06: Daily, # Stephen n coated 00 30 tab, 0 tablet Refill(s) dextrometho 2021-0 Yes 5 mL, PO, M emoria rphan-guaiF 8 Q6H, 0 l ENesin 15 06:04: Refill(s) Her muñoz mg-200 mg/5 00 mL oral liquid escitalopra 0 Yes 10 mg = 1 M emoria m 10 mg 8- tab, PO, l oral tablet 06:01: Daily, # Michael rmann 00 30 tab, 0 Refill(s) clopidogrel 0 Yes 75 mg = 1 M emoria 75 mg oral - tab, PO, l tablet 06:00: Daily, # Buck 00 30 tab, 0 Refill(s) epoetin 0 Yes 2,000 Memoria coni-epbx 03-03 unit, IV, l 1999 06:00: qWeek, 0 Buck units/mL 00 Refill(s) preservativ e-free injectable solution cloNIDine 0 No 0.1 mg, Memor ia 03-03 PRN l 05:58: Elevated Buck 00 BP, 0 Refill(s) Dextrose 0 No 12.5 gm, Memor ia 50% Syringe 03-03 25 mL, l (D50W) 04:51: Route: IVP, Drug Form: INJ, Dosing Weight 90.909, kg, PRN, PRN Blood Glucose Results, Start date: 03/02/22 23:51:00 CDT, Duration: 30 day, Stop date: 04/01/22 23:50:00 CDT, 0 glucagon 2021-0 No 1 mg, Memoria 03-03 Route: IM, l 04:51: Drug form: PDR/INJ, PRN, Dosing Weight 90.909, kg, PRN Blood Glucose Results, Start date: 03/02/22 23:51:00 CDT, Duration: 30 day, Stop date: 04/01/22 23:50:00 CDT, 0 insulin No Notes: Memoria lispro 03-03 (Same as: l 04:51: Humalog) Roll in palms of hands gently; Do not shake vigorously . WASTE: F/P - Black; E - Municipal Trash Bin Stable for 28 days at room temperatur e. Expires in days from ____Date ondansetron No Notes: Isidro elisa 03-03 (Same as: l 03:55: Zofran) MEDICATION WASTE Product Size: 4 mg Product Wasted: ___ mg acetaminoph No Notes: Do M emoria en 03-03 not exceed l 03:55: 4 gm/day. Buck 00 (Same as: Tylenol) acetaminoph No Notes: Do M emoria en 03-03 not exceed l 01:33: 4 gm/day. Leopold 00 (Same as: Tylenol) vancomycin No 2000 mg: Me moria + Sodium 03-03 infuse l Chloride 01:32: over 2.5 Lo nn 0.9% IV 500 00 hours For mL adult patients only: Round to nearest 250 mg per Medical Staff approval MEDICATION WASTE Product Size: 1000 mg Product Wasted: ___ mg cefepime + No Notes: Memor ia Sodium 03-03 (Same as: l Chloride 01:32: Maxipime) Herm bhavin 0.9% IV 100 00 mL MEDICATION WASTE Product Size: 2000 mg Product Wasted: ___ mg aspirin 81 No Notes: Memor ia mg tablet, 03-03 Take with l chewable 01:31: food. senna 8.8 Yes 8.8 mg = 5 Me moria mg/5 mL 6-27 mL, GT, l oral syrup 20:24: Daily, 0 Her muñoz 00 Refill(s) nystatin Yes 1 appl, Memori a topical 6-27 TOP, PRN, l 100,000 20:24: PRN For Leopold units/g 00 Fungal powder Prophylaxi s, 0 Refill(s) ocular Yes 1 appl, Memoria lubricant 01-24 BOTH EYES, l 20:24: Q6H, 0 Leopold 00 Refill(s) pantoprazol Yes 40 mg, Isidro elisa e 40 mg 01-24 IVP, Q12H, l intravenous 20:24: 0 Stephen n injection 00 Refill(s) piperacilli Yes 3.375 gm, M emoria n-tazobacta 01-24 IVPB, l m 20:24: ABXQ8H, 0 Leopold 00 Refill(s) polyethylen Yes 17 gm, GT, Memoria e glycol 01-24 Daily, 0 l 3350 20:24: Refill(s) Buck 00 acetaminoph Yes 100.4 F, M emoria en 01-24 0 l 20:23: Refill(s) Leopold 00 DuoNeb Yes 3 mL, NEB, Memor ia inhalation 01-24 PRN, PRN l solution 20:23: Respirator Her muñoz 00 y Pathway, 0 Refill(s) aspirin 81 Yes 81 mg = 1 Me moria mg tablet, 01-24 tab, GT, l enteric 20:23: Daily, 0 Stephen n coated 00 Refill(s) atorvastati Yes 80 mg = 1 M emoria n 80 mg 01-24 tab, GT, l oral tablet 20:23: Bedtime, 0 Leopold 00 Refill(s) bisacodyl Yes 10 mg = 1 Mem oria 10 mg 01-24 supp, [place], l rectal 20:23: Daily, PRN Lo nn suppository 00 Constipati on, 0 Refill(s) carvedilol Yes 25 mg = 1 Me moria 25 mg oral 27 tab, GT, l tablet 20:23: Q12H, 0 Buck 00 Refill(s) chlorhexidi Yes 0.018 gm = Memoria ne topical 01-24 15 mL, l 0.12% 20:23: Swab Buck liquid 00 Mouth, Q12H, 0 Refill(s) ferrous Yes 325 mg = 1 Isidro elisa sulfate 325 6-27 tab, GT, l mg oral 20:23: Daily, Buck enteric 00 dosed as coated ferrous tablet sulfate salt, 0 Refill(s) heparin Yes 5,000 unit Isidro elisa 5000 6-27 = 1 mL, l units/mL 20:23: SUB-Q, Buck injectable 00 Q8H, 0 solution Refill(s) insulin Yes 55 unit, Memori a isophane 6-27 SUB-Q, l (NPH) 100 20:23: Q8H-06, 0 Her muñoz units/mL 00 Refill(s) human recombinant subcutaneou s suspension insulin Yes 15 unit, Memori a regular 100 6-27 SUB-Q, l units/mL 20:23: Sliding Stephen n human 00 Scale, PRN recombinant Blood Glucose Results, 0 Refill(s) amLODIPine Yes 10 mg = 1 Me moria 10 mg oral 6-27 tab, GT, l tablet 20:22: Daily, 0 Leopold 00 Refill(s) hydrALAZINE Yes 50 mg = 1 M emoria 50 mg oral 6-27 tab, GT, l tablet 20:22: Q6H, 0 Buck 00 Refill(s) hydrALAZINE No Notes: Isidro elisa 6-27 (Same as: l 17:00: Apresoline Buck ) May interfere w/enteral feedings Take With Food Zosyn No Notes: Memoria 6-27 (Same as: l 15:00: Zosyn) Leopold Dosing based on Piperacill in component MEDICATION WASTE Product Size: 3375 mg Product Wasted: ___ mg ferrous No Notes: Memoria sulfate 6-27 Give with l 15:00: food. "Do Leopold 00 Not Crush" aspirin No Notes: Do Memor ia 6-26 not crush l 21:58: or chew. Buck 00 (Same As: Ecotrin) heparin No Notes: Memoria 5000 6-26 porcine l units/mL 21:00: heparin Stephen n injectable 00 solution Omnipaque No 60 mL, Memori a 350 mg/mL 6-26 Route: l 20:43: IVP, Drug Form: SOLN, Dosing Weight 93.5, kg, ONCALL, STAT, Start date: 01/23/22 15:43:00 CDT, Duration: 1 doses or times, Dose = 2.2ml/kg, Max dose = 100ml -- "To be infused by Radiology Staff ONLY" Dextrose No 12.5 gm, Memor ia 50% Syringe 01-23 25 mL, l (D50W) 18:40: Route: Buck 00 IVP, Drug Form: INJ, Dosing Weight 93.5, kg, PRN, PRN Blood Glucose Results, Start date: 01/23/22 13:40:00 CDT, Duration: 30 day, Stop date: 02/22/22 13:39:00 CDT, 0 glucagon No 1 mg, Memoria 01-23 Route: IM, l 18:40: Drug form: Leopold 00 PDR/INJ, PRN, Dosing Weight 93.5, kg, PRN Blood Glucose Results, Start date: 01/23/22 13:40:00 CDT, Duration: 30 day, Stop date: 02/22/22 13:39:00 CDT, 0 Insulin No Notes: Memoria regular 01-23 (Same as: l 18:40: Humulin R) Roll in palms of hands gently; Do not shake vigorously . WASTE: F/P - Black; E - Municipal Trash Bin Stable for 31 days at room temperatur e Expires in days from ____Date Versed No Notes: Memoria 01-22 Same as: l 17:29: Versed Buck 00 fentaNYL - No Notes: Memor ia one time 01-22 (Same as: l ICU bolus 17:29: Sublimaze) He rmann dose 00 Preservati ve free. lidocaine No Notes: Memori a 1% 01-22 Preservati l 17:29: ve free. Buck (Same as: Xylocaine MPF) Dextrose No 12.5 gm, Memor ia 50% Syringe 6-25 25 mL, l (D50W) 16:14: Route: Leopold 00 IVP, Drug Form: INJ, Dosing Weight 93.5, kg, PRN, PRN Blood Glucose Results, Start date: 01/22/22 11:14:00 CDT, Duration: 30 day, Stop date: 02/21/22 11:13:00 CDT, 0 glucagon No 1 mg, Memoria 25 Route: IM, l 16:14: Drug form: Buck 00 PDR/INJ, PRN, Dosing Weight 93.5, kg, PRN Blood Glucose Results, Start date: 01/22/22 11:14:00 CDT, Duration: 30 day, Stop date: 02/21/22 11:13:00 CDT, 0 Insulin No Notes: Memoria regular 6-25 (Same as: l 16:14: Humulin R) Leopold 00 Roll in palms of hands gently; Do not shake vigorously . 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 WASTE: F/P - Black; E - Municipal Trash Bin Stable for 31 days at room temperatur e Expires in days from ____Date Insulin No Notes: Memoria regular 100 6-24 Final l unit + 14:30: Concentrat Lo nn 00 ion 1unit/1ml; Total volume = 100 mL WASTE: F/P - Black; E - Municipal Trash Bin Dextrose No 25 gm, 50 Isidro elisa 50% Syringe 6-24 mL, Route: l (D50W) 14:30: IVP, Drug Stephen n 00 Form: INJ, Dosing Weight 93.5, kg, PRN, PRN Blood Glucose Results, Start date: 01/21/22 9:30:00 CDT, Duration: 30 day, Stop date: 02/20/22 9:29:00 CDT, 0 polyethylen No Notes: Isidro elisa e glycol -24 Dissolve l 3350 14:00: in 8 oz of water or juice. (Same as: Miralax) senna No Notes: Memoria 6-24 (Same as: l 14:00: Senokot) insulin No Notes: Memoria isophane-in 01-20 (Same as: l sulin 21:00: Humulin Buck regular 00 70/30) 70/30 Roll in palms of hands gently; Do not shake vigorously . WASTE: F/P - Black; E - Municipal Trash Bin Stable for 31 days at room temperatur e. Expires in days from ____Date fluconazole No Notes: Isidro elisa - (Same as: l 20:00: Diflucan) Do not refrigerat e Hazardous Drug Group 3:Reproduc tive risk Hazardous Drug -- Refer to safe handling procedure PPE Matrix acetaminoph No Notes: Max Memoria en - acetaminop l 17:41: hen = 4000mg/day (4 gm/day). (Same as: Tylenol) aspirin No 10 kg; Memoria 6-23 Low-dose, l 14:00: antiplatel et effects; Pediatric Dosing Brilinta No 90 mg, Memoria (ticagrelor 6- Route: PO, l ) 02:00: Drug form: Buck 00 TAB, Q12H, Dosing Weight 93.5, kg, Start date: 01/19/22 21:00:00 CDT, Duration: 30 day, Stop date: 02/18/22 9:00:00 CDT pantoprazol No Notes: For Memoria e 6-23 IV push l 02:00: reconstitu te with 10 ml 0.9% sodium chloride and push over 2 minutes. (Same as: Protonix) fluconazole No Notes: Isidro elisa - (Same as: l 19:29: Diflucan) Hazardous Drug Group 3:Reproduc tive risk Hazardous Drug -- Refer to safe handling procedure PPE Matrix Brilinta No 180 mg, Memori a (ticagrelor 01-19 Route: PO, l ) 16:16: Drug form: Buck 00 TAB, ONCE, Dosing Weight 93.5, kg, Loading dose, Start date: 01/19/22 11:16:00 CDT, Stop date: 01/19/22 11:16:00 CDT aspirin No 325 mg, Memoria 01-19 Route: PO, l 16:16: Drug form: Buck 00 TAB, ONCE, Dosing Weight 93.5, kg, Start date: 01/19/22 11:16:00 CDT, Stop date: 01/19/22 11:16:00 CDT meropenem No Notes: Memori a 01-19 Same as l 15:00: Merrem tobramycin No 300 mg, Isidro elisa 01-19 Route: l 14:11: NEB, Drug form: SOLN, RQ12H, Dosing Weight 93.5, kg, Start date: 01/19/22 9:11:00 CDT, Duration: 14 day, Stop date: 02/02/22 4:00:00 CDT colistimeth No Notes: SEE Memoria ate 01-19 RT l 14:11: DOCUMENTAT ION. Reconstitu te vial containing 150 mg of colistin to a total volume of 10 mL with SWFI (concentra tion: 15 mg colistin base activity/m L) for nebulizati on. BUD and time: Pharmacy to send in an lizzeth syringe/or al syringe. FOR INHALATION USE ONLY! Saline No Notes: Memoria Flush 0.9% 01-19 (Same as: l 14:00: BD Posiflush) chlorhexidi No Notes: Isidro elisa ne topical 01-19 (Same As: l 0.12% 14:00: Peridex) Leopold liquid 00 ocular No Notes: Memoria lubricant 01-19 (Same as: l 11:00: Lacri-Lube , Puralube, Duratears Naturale, Artificial Tears, and Tears Again ) chlorhexidi No Notes: Isidro elisa ne topical 01-19 (Same As: l 0.12% 09:54: Peridex) Buck liquid 00 nystatin No Notes: Memoria topical 01-19 (Same l 100,000 04:01: as:Mycosta Herm bhavin units/g 00 tin, powder Nilstat) For external use only. 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 WASTE: F/P - Black; E - Municipal Trash Bin Stable for 31 days at room temperatur e Expires in days from ____Date cefepime No Notes: Memoria - (Same As: l 05:00: Maxipime) Buck 00 MEDICATION WASTE Product Size: 1000 mg Product Wasted: ___ mg Sodium No 250 mL, Memoria Chloride 01-17 Rate: To l 0.9% 08:14: prime line Buck (titrate) 00 and flush 250 mL remaining blood products., Dosing Weight 93.5, kg, Route: IV, Total Volume: 250, Start Date: 01/17/22 3:14:00 CDT, Duration: 1 day, Stop date: 01/18/22 3:13:00 CDT, Replace Every: 24 hr, 0 hydrALAZINE No Notes: Isidro elisa 01-16 (Same as: l 13:00: Apresoline Leopold 00 ) May interfere w/enteral feedings Take With Food insulin No Notes: Memoria isophane-in 01-16 (Same as: l sulin 11:00: Humulin Buck regular 70/30) 70/30 Roll in palms of hands gently; Do not shake vigorously . WASTE: F/P - Black; E - Municipal Trash Bin Stable for 31 days at room temperatur e. Expires in days from ____Date hydrALAZINE No Notes: Isidro elisa 01-15 (Same as: l 21:00: Apresoline Buck 00 ) May interfere w/enteral feedings Take With Food. insulin No Notes: Memoria isophane-in 01-15 (Same as: l sulin 17:00: Humulin Leopold regular 70/30) 70/30 Roll in palms of hands gently; Do not shake vigorously . WASTE: F/P - Black; E - Municipal Trash Bin Stable for 31 days at room temperatur e. Expires in days from ____Date silver No Notes: Memoria nitrate 01-15 WASTE: F/P l topical 14:35: - Black; E Herm bhavin - Municipal Trash Bin hydrALAZINE No Notes: Isidro elisa 01-15 (Same as: l 14:34: Apresoline Buck 00 ) May interfere w/enteral feedings Take With Food. silver No Notes: Memoria nitrate 01-14 WASTE: F/P l topical 15:44: - Black; E Herm bhavin stick - Municipal Trash Bin insulin No Notes: Memoria isophane-in 01-14 (Same as: l sulin 11:00: Humulin Buck regular 00 70/30) 70/30 Roll in palms of hands gently; Do not shake vigorously . WASTE: F/P - Black; E - Municipal Trash Bin Stable for 31 days at room temperatur e. Expires in days from ____Date insulin No Notes: Memoria isophane-in 01-13 (Same as: l sulin 23:00: Humulin Buck regular 00 70/30) 70/30 Roll in palms of hands gently; Do not shake vigorously . WASTE: F/P - Black; E - Municipal Trash Bin Stable for 31 days at room temperatur e. Expires in days from ____Date heparin No Notes: Memoria 5000 01-13 porcine l units/mL 21:00: heparin Stephen n injectable 00 solution Beneprotein No Notes: Isidro elisa 7 gm pkt 01-13 (Same as: l 21:00: Beneprotei Leopold 00 n) silver No 10 stick, Memori a nitrate 01-13 Route: l topical 19:44: TOP, ONCE, Herm bhavin stick 00 Drug form: STIC, Start date: 01/13/22 14:44:00 CDT, Stop date: 01/13/22 14:44:00 CDT, 0 Dextrose 2021-0 No 25 mL, Memoria 50% Syringe 01-13 Route: l (D50W) 14:13: IVP, Buck Dosing Weight 93.5, kg, PRN, PRN Blood Glucose Results, Start date: 01/13/22 9:13:00 CDT, Duration: 30 day, Stop date: 02/12/22 9:12:00 CDT glucagon 2021-0 No 1 mg, Memoria 01-13 Route: IM, l 14:13: PRN, Leopold 00 Dosing Weight 93.5, kg, PRN Blood Glucose Results, Start date: 01/13/22 9:13:00 CDT, Duration: 30 day, Stop date: 02/12/22 9:12:00 CDT insulin 2021-0 No 3 unit, Memoria lispro 01-13 Route: l 14:13: SUB-Q, Leopold 00 Sliding Scale, Dosing Weight 93.5, kg, PRN Blood Glucose Results, Start date: 01/13/22 9:13:00 CDT, Duration: 30 day, Stop date: 02/12/22 9:12:00 CDT Dextrose 2021-0 No 12.5 gm, Memor ia 50% Syringe 6-16 25 mL, l (D50W) 14:09: Route: Buck 00 IVP, Drug Form: INJ, Dosing Weight 93.5, kg, PRN, PRN Blood Glucose Results, Start date: 01/13/22 9:09:00 CDT, Duration: 30 day, Stop date: 02/12/22 9:08:00 CDT, 0 glucagon 2021- No 1 mg, Memoria 6-16 Route: IM, l 14:09: Drug form: Buck 00 PDR/INJ, PRN, Dosing Weight 93.5, kg, PRN Blood Glucose Results, Start date: 01/13/22 9:09:00 CDT, Duration: 30 day, Stop date: 02/12/22 9:08:00 CDT, 0 Insulin 2021- No Notes: Memoria regular 6-16 (Same as: l 14:09: Humulin R) Roll in palms of hands gently; Do not shake vigorously . WASTE: F/P - Black; E - Municipal Trash Bin Stable for 31 days at room temperatur e Expires in days from ____Date silver No Notes: Memoria nitrate 6-16 WASTE: F/P l topical 14:07: - Black; E Herm bhavin - Municipal Trash Bin famotidine No 20 mg, Memor ia 6-16 Route: GT, l 02:00: Drug form: Buck 00 TAB, Q12H, Dosing Weight 93.5, kg, Start date: 01/12/22 21:00:00 CDT, Duration: 30 day, Stop date: 02/11/22 9:00:00 CDT chlorhexidi 2021-0 No Notes: Isidro elisa ne topical 6-16 (Same As: l 0.12% 02:00: Peridex) Buck liquid 00 fentaNYL No 125 Memoria 6-15 microgram, l 21:17: 2.5 mL, Leopold 00 Route: IV, Drug form: INJ, ONCE, Dosing Weight 93.5, kg, Start date: 01/12/22 16:17:00 CDT, Stop date: 01/12/22 16:17:00 CDT, 0 midazolam No 3 mg, 3 Memor ia 6-15 mL, Route: l 21:17: IV, Drug Leopold form: SOLN, ONCE, Dosing Weight 93.5, kg, Start date: 01/12/22 16:17:00 CDT, Stop date: 01/12/22 16:17:00 CDT, 0 ocular No Notes: Memoria lubricant 6-15 (Same as: l 17:00: Lacri-Lube Leopold 00 , Puralube, Duratears Naturale, Artificial Tears, and Tears Again ) fentaNYL No Notes: Memoria 6-15 (Same as: l 16:14: Sublimaze) Leopold 00 Preservati ve free. Versed No Notes: Memoria 6-15 Same as: l 16:14: Versed Leopold 00 lidocaine No Notes: Memori a 1% 6-15 Preservati l 16:14: ve free. Leopold 00 (Same as: Xylocaine MPF) Sodium No Notes: SEE Memor ia Chloride 3% 6-15 RT l inhalation 16:00: DOCUMENTAT H ermann solution 00 ION (Same as: Hypertonic Saline 3%, Inhalation ) DuoNeb No Notes: Memoria inhalation 6-15 (Same as: l solution 15:34: Duoneb) Stephen n 00 Sodium No 4 mL, Memoria Chloride 3% 6-15 Route: l inhalation 15:34: NEB, Drug He rmann solution 00 Form: SOLN, Dosing Weight 93.5, kg, RQ4H, NOW, Start date: 01/12/22 10:34:00 CDT, Duration: 30 day, Stop date: 02/11/22 7:00:00 CDT chlorhexidi No Notes: Isidro elisa ne topical 6-15 (Same As: l 0.12% 14:08: Peridex) Leopold liquid 00 Dextrose No 12.5 gm, Memor ia 50% Syringe 6-15 25 mL, l (D50W) 14:04: Route: Leopold 00 IVP, Drug Form: INJ, Dosing Weight 93.5, kg, PRN, PRN Blood Glucose Results, Start date: 01/12/22 9:04:00 CDT, Duration: 30 day, Stop date: 02/11/22 9:03:00 CDT, 0 glucagon No 1 mg, Memoria 6-15 Route: IM, l 14:04: Drug form: Leopold 00 PDR/INJ, PRN, Dosing Weight 93.5, kg, PRN Blood Glucose Results, Start date: 01/12/22 9:04:00 CDT, Duration: 30 day, Stop date: 02/11/22 9:03:00 CDT, 0 Insulin No Notes: Memoria regular 6-15 (Same as: l 14:04: Humulin R) Leopold 00 Roll in palms of hands gently; Do not shake vigorously . WASTE: F/P - Black; E - Municipal Trash Bin Stable for 31 days at room temperatur e Expires in days from ____Date Insulin No Notes: Memoria regular 6-14 (Same as: l 15:53: Humulin R) Buck 00 Roll in palms of hands gently; Do not shake vigorously . WASTE: F/P - Black; E - Municipal Trash Bin Stable for 31 days at room temperatur e Expires in days from ____Date lansoprazol No Notes: Isidro elisa e 6-14 Take 1 l 14:00: hour Buck 00 before or 2 hours after meal; Expires in 14 days. Shake well before use. (Same as:Dannielle stein) Compound ed Product - formulatio n not commercial ly available* * potassium No Notes: Memori a chloride 20 01-11 (Same as: l mEq/15 mL 12:44: Potassium Her muñoz oral liquid 00 Chloride) (KCL) vancomycin No 2000 mg: Me moria + Sodium 01-11 infuse l Chloride 10:00: over 2.5 Lo nn 0.9% IV 500 00 hours For mL adult patients only: Round to nearest 250 mg per Medical Staff approval MEDICATION WASTE Product Size: 1000 mg Product Wasted: ___ mg Vancomycin No Notes: [facility]11 Vancomycin l Dosing 07:39: Pharmacy [facility] Consult 16 Dosing Protocol PHARMAC Y USE ONLY Note: This is not a medication order. This is a consultati on order. cefepime + No Notes: [facility] sterile 01-11 (Same As: l water 10 mL 06:00: Maxipime) H ermann 00 MEDICATION WASTE Product Size: 1000 mg Product Wasted: ___ mg hydrALAZINE No Notes: Isidro elisa - (Same as: l 13:00: Apresoline [facility] 00 ) May interfere w/enteral feedings Take With Food cefTRIAXone No Notes: Isidro elisa + sterile 01-09 (Same As: l water 20 mL 17:00: Rocephin). Buck 00 Use with 100 mL NS and infuse over 30 min MEDICATION WASTE Product Size: 2000 mg Product Wasted: ___ mg insulin No Notes: [facility] isophane-in 01-09 (Same as: l sulin 17:00: Humulin [facility] regular 00 70/30) 70/30 Roll in palms of hands gently; Do not shake vigorously . WASTE: F/P - Black; E - Municipal Trash Bin Stable for 31 days at room temperatur e. Expires in days from ____Date Dextrose No 12.5 gm, [facility] 50% Syringe 01-09 25 mL, l (D50W) 16:39: Route: Buck 00 IVP, Drug Form: INJ, Dosing Weight 93.5, kg, PRN, PRN Blood Glucose Results, Start date: 01/09/22 11:39:00 CDT, Duration: 30 day, Stop date: 02/08/22 11:38:00 CDT, 0 glucagon No 1 mg, Memoria 01-09 Route: IM, l 16:39: Drug form: Buck 00 PDR/INJ, PRN, Dosing Weight 93.5, kg, PRN Blood Glucose Results, Start date: 01/09/22 11:39:00 CDT, Duration: 30 day, Stop date: 02/08/22 11:38:00 CDT, 0 Insulin No Notes: Memoria regular 01-09 (Same as: l 16:39: Humulin R) Roll in palms of hands gently; Do not shake vigorously . WASTE: F/P - Black; E - Municipal Trash Bin Stable for 31 days at room temperatur e Expires in days from ____Date potassium No Notes: Memori a chloride 20 01-09 (Same as: l mEq/15 mL 16:35: Potassium Her muñoz oral liquid 00 Chloride) (KCL) acetaminoph No Notes: Max Memoria en 01-09 acetaminop l 06:34: hen = Buck 00 4000mg/day (4 gm/day). (Same as: Tylenol) sugammadex No Route: IV, M emoria (ANES) 01-08 Drug form: l 17:45: SOLN, Leopold 00 ONCE, Stop date: 01/08/22 12:45:00 CDT phenylephri No Route: IV, Memoria ne (ANES) 01-08 Drug form: l 17:30: INJ, ONCE, Stop date: 01/08/22 12:30:00 CDT lidocaine No Route: IV, Me moria (ANES) 01-08 Drug form: l 17:25: INJ, ONCE, Stop date: 01/08/22 12:25:00 CDT propofol No Route: IV, Mem oria (ANES) 01-08 Drug form: l 17:25: INJ, ONCE, Stop date: 01/08/22 12:25:00 CDT rocuronium No Route: IV, M emoria (ANES) 01-08 Drug form: l 17:25: INJ, ONCE, Buck 00 Stop date: 01/08/22 12:25:00 CDT fentaNYL No Route: IV, Mem oria (ANES) 6-11 Drug form: l 17:25: INJ, ONCE, Stop date: 01/08/22 12:25:00 CDT Protonix No 40 mg, Memoria 6-11 Route: l 17:00: IVP, Drug form: INJ, Daily, Dosing Weight 93.5, kg, Start date: 01/08/22 12:00:00 CDT, Duration: 30 day, Stop date: 02/07/22 9:00:00 CDT, 0 Lactated No Route: IV, Mem oria Ringers -11 Total l Injection 16:31: Volume: Lo nn IV (ANES) 00 1,000, 1000 mL Start date: 01/08/22 11:31:00 CDT, Stop date: 01/08/22 12:31:00 CDT hydrALAZINE No Notes: Isidro elisa 6-10 (Same as: l 23:00: Apresoline ) Push over 5 minutes nafcillin No 2 gm, Memoria 6-10 Route: l 17:00: IVPB, Drug form: PDR/INJ, Q4H, Dosing Weight 93.5, kg, Start date: 01/07/22 12:00:00 CDT, Duration: 10 day, Stop date: 01/17/22 8:00:00 CDT, 0 Ofirmev No Notes: Memoria 6-10 Infuse l 16:08: over 15 minutes Do not exceed 4gm/day of acetaminop hen MEDICATION WASTE Product Size: 1000 mg Product Wasted: ___ mg Robaxin + No Notes: Memori a Sodium 6-10 (Same l Chloride 15:47: as:Robaxin Her muñoz 0.9% IV 100 00 ) mL SMOG Enema No Notes: Memor ia 6-10 saline for l 15:21: irrigation (1L bottle) 100 mL, mineral oil 100 mL, glycerine 100 mL. Dispense (300 ml) in 1L NS bottle enalaprilat No 0.625 mg, M emoria 6 Route: IV, l 15:18: Q6H, Dosing Weight 93.5, kg, PRN Hypertensi on, Start date: 01/07/22 10:18:00 CDT, Duration: 30 day, Stop date: 02/06/22 10:17:00 CDT polyethylen No Notes: Isidro elisa e glycol 01-07 Dissolve l 3350 02:00: in 8 oz of water or juice. (Same as: Miralax) fentaNYL No Notes: Memoria 01-06 (Same as: l 22:05: Sublimaze) Preservati ve free. fentaNYL No 50 kg Memoria - l 21:54: fentaNYL No Notes: Memoria - (Same as: l 20:14: Sublimaze) Preservati ve free. Versed No 2 mg, 2 Memoria 01-06 mL, Route: l 20:14: IVP, Drug form: SOLN, ONCE, Dosing Weight 93.5, kg, Priority: Routine, Start date: 01/06/22 15:14:00 CDT, Stop date: 01/06/22 15:14:00 CDT, 0 etomidate No 20 mg, Memori a 01-06 Route: IV, l 20:14: ONCE, Dosing Weight 93.5, kg, Priority: Routine, Start date: 01/06/22 15:14:00 CDT, Stop date: 01/06/22 15:14:00 CDT rocuronium No Notes: Memor ia 01-06 (Same as: l 20:14: Zemuron) magnesium No Notes: Memori a citrate 01-06 (Same as: l 1.745 g/30 15:58: Citrate of H ermann oral 00 Magnesia) liquid Concentrat ion: 1.745 gm / 30 mL bisacodyl No Notes: Memori a 6- (Same As: l 15:58: Dulcolax, Bisco-Lax) hydrALAZINE No Notes: Isidro elisa 01-06 (Same as: l 15:55: Apresoline ) sugammadex No Route: IV, M emoria (ANES) 01-06 Drug form: l 14:48: SOLN, [place] 00 ONCE, Stop date: 01/06/22 9:48:00 CDT Sodium No 1,000 mL, Memori a Chloride 01-06 Rate: 100 l 0.9% IV 14:41: ml/hr, Leopold 1,000 mL 00 Infuse over: 10 hr, Route: IV, Dosing Weight 93.5 kg, Total Volume: 1,000, Start date: 01/06/22 9:41:00 CDT, Duration: 30 day, Stop date: 02/05/22 9:40:00 CDT, BSA: 2.19 m2, 0 Omnipaque No 150 ml, Memor ia 350 01-06 Route: l 14:29: INTRAARTER [place] 00 IAL, Dosing Weight 93.5, kg, ONCE, Start date: 01/06/22 9:29:00 CDT, Stop date: 01/06/22 9:29:00 CDT Omnipaque No 150 ml, Memor ia 350 01-06 Route: l 14:14: INTRAARTER Buck 00 IAL, Dosing Weight 93.5, kg, ONCE, Start date: 01/06/22 9:14:00 CDT, Stop date: 01/06/22 9:14:00 CDT rocuronium No Route: IV, M emoria (ANES) 01-06 Drug form: l 14:13: INJ, ONCE, Leopold Stop date: 01/06/22 9:13:00 CDT amLODIPine No Notes: Memor ia 01-06 (Same as: l 14:00: Norvasc) norepinephr No Route: IV, Memoria ine (ANES) 01-06 Drug form: l 10 13:50: INJ, Start Buck microgram 00 date: 01/06/22 8:50:00 CDT, Stop date: 01/06/22 9:50:00 CDT Sodium No Route: IV, Memor ia Chloride 6-09 Total l 0.9% IV 13:40: Volume: Buck (ANES) 1000 00 1,000, mL Start date: 01/06/22 8:40:00 CDT, Stop date: 01/06/22 9:40:00 CDT potassium No Notes: Memori a chloride 6-09 (Same as: l 09:00: KCL) 10 mEq/100ml product recommende d for peripheral line administra tion. Infuse no faster than 10 mEq/hr if given peripheral ly. potassium No 40 mEq, Memor ia chloride 6-09 Route: IV, l 08:24: ONCE, Dosing Weight 93.5, kg, Start date: 01/06/22 3:24:00 CDT, Stop date: 01/06/22 3:24:00 CDT amLODIPine No Notes: Memor ia 6-08 (Same as: l 15:02: Norvasc) potassium No Notes: Memori a chloride 20 6-08 (Same as: l mEq/15 mL 15:00: Potassium Her muñoz oral liquid 00 Chloride) (KCL) aspirin No Notes: Memoria 6-08 Take with l 14:00: food. cefepime No 1 gm, Memoria 6-08 Route: IV, l 13:00: [id number], Dosing Weight 93.5, kg, Start date: 01/05/22 8:00:00 CDT, Duration: 10 day, Stop date: 01/14/22 8:00:00 CDT, (CrCl 10 - 29 mL/min), ABX Indication : Pneumonia vancomycin No 1,402.5 Isidro elisa 6-08 mg, Route: l 13:00: IVPB, Drug form: INJ, [id number], Dosing Weight 93.5, kg, Start date: 01/05/22 8:00:00 CDT, Duration: 10 day, Stop date: 01/14/22 20:00:00 CDT, ABX Indication : Pneumonia cefepime + No Notes: Memor ia sterile 01-05 (Same As: l water 10 mL 13:00: Maxipime) H ermann 00 MEDICATION WASTE Product Size: 1000 mg Product Wasted: _0__ mg vancomycin No 2000 mg: Me moria + Sodium 01-05 infuse l Chloride 12:57: over 2.5 Lo nn 0.9% IV 250 00 hours For mL adult patients only: Round to nearest 250 mg per Medical Staff approval MEDICATION WASTE Product Size: 1000 mg Product Wasted: ___ mg Vancomycin No Notes: Memor ia Pharmacy 01-05 Vancomycin l Dosing 12:08: Pharmacy [place] Consult 55 Dosing Protocol PHARMAC Y USE ONLY Note: This is not a medication order. This is a consultati on order. Insulin No Notes: Memoria regular 100 08 Final l unit + 06:51: Concentrat Lo nn 00 ion 1unit/1ml; Total volume = 100 mL WASTE: F/P - Black; E - Municipal Trash Bin Dextrose No 6.25 gm, Memor ia 50% Syringe 01-05 12.5 mL, l (D50W) 06:51: Route: Buck 00 IVP, Drug Form: INJ, Dosing Weight 93.5, kg, PRN, PRN Abnormal Lab Result, Start date: 01/05/22 1:51:00 CDT, Duration: 30 day, Stop date: 02/04/22 1:50:00 CDT, 0 pantoprazol No 40 mg, Isidro elisa e 01-05 Route: NG, l 02:00: Drug form: Buck GRAN/REC, Q12H, Dosing Weight 93.5, kg, Start date: 01/04/22 21:00:00 CDT, Duration: 30 day, Stop date: 02/03/22 9:00:00 CDT Prevacid No Notes: Memoria 08 Take 1 l 02:00: hour Buck 00 before or 2 hours after meal; Expires in 14 days. Shake well before use. (Same as:Prevaci d) Compound ed Product - formulatio n not commercial ly available* * acetaminoph No Notes: Do M emoria en 01-04 not exceed l 17:43: 4 gm/day. Buck (Same as: Tylenol) insulin No Notes: Memoria isophane-in 01-04 (Same as: l sulin 17:00: Humulin Leopold regular /30) 70/30 Roll in palms of hands gently; Do not shake vigorously . WASTE: F/P - Black; E - Municipal Trash Bin Stable for 31 days at room temperatur e. Expires in days from ____Date insulin No Notes: Memoria isophane-in 01-04 (Same as: l sulin 04:00: Humulin Buck regular 70/30) 70/30 Roll in palms of hands gently; Do not shake vigorously . WASTE: F/P - Black; E - Municipal Trash Bin Stable for 31 days at room temperatur e. Expires in days from ____Date pantoprazol No Notes: For Memoria e 01-04 IV push l 02:00: reconstitu te with 10 ml 0.9% sodium chloride and push over 2 minutes. (Same as: Protonix) insulin No Notes: Memoria isophane-in 01-03 (Same as: l sulin 17:00: Humulin Buck regular 30) 70/30 Roll in palms of hands gently; Do not shake vigorously . WASTE: F/P - Black; E - Municipal Trash Bin Stable for 31 days at room temperatur e. Expires in days from ____Date hydrALAZINE No Notes: Isidro elisa 01-03 (Same as: l 09:10: Apresoline ) Push over 5 minutes insulin No 15 unit, Memori a isophane-in 01-03 Route: l sulin 05:00: SUB-Q, Buck regular Drug form: 70/30 SUSP, Q8H, Dosing Weight 103.182, kg, Start date: 01/03/22 0:00:00 CDT, Duration: 30 day, Stop date: 02/01/22 16:00:00 CDT, 0 docusate No Notes: Memoria 6-06 (Same as: l 02:00: Colace) Buck 00 senna No Notes: Memoria 6-06 (Same as: l 02:00: Senokot) Buck 00 chlorhexidi No Notes: Isidro elisa ne topical 6-06 (Same As: l 0.12% 00:00: Peridex) Buck liquid 00 ocular No Notes: Memoria lubricant 6-05 (Same as: l 23:00: Lacri-Lube Leopold 00 , Puralube, Duratears Naturale, Artificial Tears, and Tears Again ) heparin No Notes: Memoria additive 6-05 Total l 25,000 unit 22:04: Concentrat [14 00 ion = 50 unit/kg/hr] unit/ ml + Premix Total Diluent volume = Sodium 500 ml Chloride Send Med 0.45% 500 Request 2 mL hours prior to next bag insulin No Notes: Memoria isophane-SALES TEAM RECRUITER 6-05 (Same as: l H 22:00: Humulin N) Roll in palms of hands gently; Do not shake vigorously . WASTE: F/P - Black; E - Municipal Trash Bin Stable for 31 days at room temperatur e Expires in days from ____Date Isolyte S No Notes: Memori a PH-7.4 6-05 (Same as: l (Bolus) IV 21:52: Isolyte S He rmann 00 PH7.4, Normosol-R PH 7.4, Plasma-Lyt e A ) Isolyte S No Notes: Memori a PH 7.4 6-05 (Same as: l 1,000 mL 21:52: Isolyte S Herm bhavin 00 PH7.4, Normosol-R PH 7.4, Plasma-Lyt e A ) Dextrose No 12.5 gm, Memor ia 50% Syringe 6-05 25 mL, l (D50W) 21:44: Route: Leopold 00 IVP, Drug Form: INJ, Dosing Weight 103.182, kg, PRN, PRN Blood Glucose Results, Start date: 01/02/22 16:44:00 CDT, Duration: 30 day, Stop date: 02/01/22 16:43:00 CDT, 0 glucagon No 1 mg, Memoria -05 Route: IM, l 21:44: Drug form: Leopold 00 PDR/INJ, PRN, Dosing Weight 103.182, kg, PRN Blood Glucose Results, Start date: 01/02/22 16:44:00 CDT, Duration: 30 day, Stop date: 02/01/22 16:43:00 CDT, 0 insulin No Notes: Memoria lispro 01-02 (Same as: l 21:44: Humalog) Roll in palms of hands gently; Do not shake vigorously . WASTE: F/P - Black; E - LTG Exam Prep Platform Trash Bin Stable for 28 days at room temperatur e. Expires in days from ____Date Omnipaque No 60 mL, Memori a 350 mg/mL 01-02 Route: l 21:27: IVP, Drug Form: SOLN, Dosing Weight 103.182, kg, ONCALL, STAT, Start date: 01/02/22 16:27:00 CDT, Duration: 1 doses or times, Dose = 2.2ml/kg, Max dose = 100ml -- "To be infused by Radiology Staff ONLY" Dextrose No 12.5 gm, Memor ia 50% Syringe 6-05 25 mL, l (D50W) 21:13: Route: IVP, Drug Form: INJ, Dosing Weight 103.182, kg, PRN, PRN Blood Glucose Results, Start date: 01/02/22 16:13:00 CDT, Duration: 30 day, Stop date: 02/01/22 16:12:00 CDT, 0 glucagon No 1 mg, Memoria -05 Route: IM, l 21:13: Drug form: Buck 00 PDR/INJ, PRN, Dosing Weight 103.182, kg, PRN Blood Glucose Results, Start date: 01/02/22 16:13:00 CDT, Duration: 30 day, Stop date: 02/01/22 16:12:00 CDT, 0 Insulin No Notes: Memoria regular 6-05 (Same as: l 21:13: Humulin R) Buck 00 Roll in palms of hands gently; Do not shake vigorously . WASTE: F/P - Black; E - Municipal Trash Bin Stable for 31 days at room temperatur e Expires in days from ____Date pantoprazol No Notes: For Memoria e additive 6-05 IV push l 80 mg + 21:10: reconstitu Herm bhavin Sodium 00 te with 10 Chloride ml 0.9% 0.9% IV 100 sodium mL chloride and push over 2 minutes. (Same as: Protonix) chlorhexidi No Notes: Isidro elisa ne topical 6-05 (Same As: l 0.12% 21:06: Peridex) Leopold liquid 00 pantoprazol No 30 mL, Isidro elisa e additive 6-05 Rate: l 24 mg [0.08 21:06: 10.32 Lo nn mg/kg/hr] + 00 ml/hr, NS 30 mL Infuse over: 2.9 hr, Route: IV, Dosing Weight 103.182 kg, Total Volume: 30 mL, Start date: 01/02/22 16:06:00 CDT, Duration: 30 day, Stop date: 02/01/22 16:05:00 CDT, BSA: 2.31 m2 etomidate No Notes: Memori a 6-05 (Same as: l 21:05: Amidate). [place] 00 Per state nursing law etomidate can only be given by a nurse if patient is intubated or being intubated (unless the nurse is a ENTRY LEVEL MACHINE OPERATOR). rocuronium No Notes: Memor ia 6-05 (Same as: l 21:05: Zemuron) Leopold 00 propofol 10 No Notes: If M emoria mg/mL 6-05 Diprivan - l (Titrate.) 21:05: change Lo nn IV 1,000 mg 00 bottle & tubing every 12 hr Per state nursing law propofol can only be given by a nurse if patient is intubated or being intubated (unless the nurse is a ENTRY LEVEL MACHINE OPERATOR). Same as: Diprivan DuoNeb No Notes: Memoria inhalation 01-02 (Same as: l solution 19:27: Duoneb) Stephen n 00 Norvasc No Notes: Memoria 6- (Same as: l 14:18: Norvasc) losartan No Notes: Memoria 01-02 (Same as: l 14:00: Cozaar) NS 1,000 mL No 1,000 mL, M emoria 01-02 Rate: 100 l 12:29: ml/hr, Infuse over: 10 hr, Route: IV, Dosing Weight 103.182 kg, Total Volume: 1,000, Start date: 01/02/22 7:29:00 CDT, Duration: 30 day, Stop date: 02/01/22 7:28:00 CDT, BSA: 2.31 m2, 0 melatonin No Notes: Memori a 01-02 (Same as: l 02:36: Melatonin) losartan No Notes: Memoria 01-01 (Same as: l 22:00: Cozaar) insulin No 20 unit, Memori a isophane-in 01-01 Route: l sulin 17:00: SUB-Q, Leopold regular 00 Q6H, 70/30 Dosing Weight 103.182, kg, Start date: 01/01/22 12:00:00 CDT, Duration: 30 day, Stop date: 01/31/22 6:00:00 CDT losartan No Notes: Memoria 01-01 (Same as: l 15:18: Cozaar) Coreg No 25 mg, 1 Memoria 01-01 tab, l 15:11: Route: GT, Drug form: TAB, Q12H, Dosing Weight 103.182, kg, Priority: NOW, Start date: 01/01/22 10:11:00 CDT, Duration: 30 day, Stop date: 01/31/22 9:00:00 CDT, 0 insulin 2021-0 No Notes: Memoria isophane-in 01-01 (Same as: l sulin 13:07: Humulin Leopold regular ) Roll in palms of hands gently; Do not shake vigorously . WASTE: F/P - Black; E - Municipal Trash Bin Stable for 31 days at room temperatur e. Expires in days from ____Date insulin 2021-0 No 15 unit, Memori a isophane-in 01-01 Route: l sulin 13:00: SUB-Q, Leopold regular Q6H, Dosing Weight 103.182, kg, Start date: 01/01/22 8:00:00 CDT, Duration: 30 day, Stop date: 01/31/22 6:00:00 CDT Dextrose 2021-0 No 12.5 gm, Memor ia 50% Syringe 01-01 25 mL, l (D50W) 04:13: Route: Buck IVP, Drug Form: INJ, Dosing Weight 103.182, kg, PRN, PRN Blood Glucose Results, Start date: 12/31/21 23:13:00 CDT, Duration: 30 day, Stop date: 01/30/22 23:12:00 CDT, 0 glucagon 2021-0 No 1 mg, Memoria 01-01 Route: IM, l 04:13: Drug form: Buck 00 PDR/INJ, PRN, Dosing Weight 103.182, kg, PRN Blood Glucose Results, Start date: 12/31/21 23:13:00 CDT, Duration: 30 day, Stop date: 01/30/22 23:12:00 CDT, 0 Insulin 2021-0 No Notes: Memoria regular 01-01 (Same as: l 04:13: Humulin R) Roll in palms of hands gently; Do not shake vigorously . WASTE: F/P - Black; E - Municipal Trash Bin Stable for 31 days at room temperatur e Expires in days from ____Date Lipitor No Notes: Memoria 6-04 Same as l 02:00: Lipitor FLUoxetine No Notes: Memor ia - (Same as: l 19:07: Prozac) Insulin No 10 unit, Memori a regular - 0.1 mL, l 16:30: Route: SUB-Q, Drug form: SOLN, TID-Before Meals, Dosing Weight 103.182, kg, Start date: 12/31/21 11:30:00 CDT, Duration: 30 day, Stop date: 01/30/22 7:30:00 CDT, 0 losartan 50 No 50 mg = 1 M emoria mg oral 6-03 tab, PO, l tablet 16:26: Daily, 0 Refill(s) amLODIPine No 2.5 mg = 1 M emoria 2.5 mg oral 6-03 tab, PO, l tablet 16:25: Daily, 0 Refill(s) hydrALAZINE No 100 mg = 1 Memoria 100 mg oral 6-03 tab, PO, l tablet 16:25: TID, # 90 Stephen n 00 tab, 3 Refill(s) calcitriol No 0.25 Memoria 0.25 mcg - microgram l oral 16:25: = 1 cap, Leopold capsule 00 PO, Every Other Day, 0 Refill(s) Dextrose No 12.5 gm, Memor ia 50% Syringe 12-31 25 mL, l (D50W) 16:05: Route: IVP, Drug Form: INJ, Dosing Weight 103.182, kg, PRN, PRN Blood Glucose Results, Start date: 12/31/21 11:05:00 CDT, Duration: 30 day, Stop date: 01/30/22 11:04:00 CDT, 0 glucagon No 1 mg, Memoria 12-31 Route: IM, l 16:05: Drug form: PDR/INJ, PRN, Dosing Weight 103.182, kg, PRN Blood Glucose Results, Start date: 12/31/21 11:05:00 CDT, Duration: 30 day, Stop date: 01/30/22 11:04:00 CDT, 0 Insulin No Notes: Memoria regular 6-03 (Same as: l 16:05: Humulin R) Buck 00 Roll in palms of hands gently; Do not shake vigorously . 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 Buck insulin No Notes: Memoria isophane 6-03 (Same as: l 13:00: Humulin N) Buck 00 Roll in palms of hands gently; Do not shake vigorously . WASTE: F/P - Black; E - Municipal Trash Bin Stable for 31 days at room temperatur e Expires in days from ____Date heparin No Notes: Memoria 5000 6-03 porcine l units/mL 13:00: heparin Stephen n injectable 00 solution insulin No Notes: Memoria lispro 6-03 (Same as: l 08:26: Humalog) Buck 00 Roll in palms of hands gently; Do not shake vigorously . WASTE: F/P - Black; E - Municipal Trash Bin Stable for 28 days at room temperatur e. Expires in days from ____Date Insulin No Notes: Memoria regular 6-03 (Same as: l 08:26: Humulin R) Buck 00 Roll in palms of hands gently; Do not shake vigorously . WASTE: F/P - Black; E - Municipal Trash Bin Stable for 31 days at room temperatur e Expires in days from ____Date Insulin No Notes: Memoria regular 6- (Same as: l 06:01: Humulin R) Leopold 00 Roll in palms of hands gently; Do not shake vigorously . WASTE: F/P - Black; E - Municipal Trash Bin Stable for 31 days at room temperatur e Expires in days from ____Date Insulin No Notes: Memoria regular 6- (Same as: l 05:23: Humulin R) Leopold 00 Roll in palms of hands gently; Do not shake vigorously . WASTE: F/P - Black; E - Municipal Trash Bin Stable for 31 days at room temperatur e Expires in days from ____Date Saline No Notes: Memoria Flush 0.9% 12-31 (Same as: l 02:00: BD Posiflush) Dextrose No 12.5 gm, Memor ia 50% Syringe 12-31 25 mL, l (D50W) 00:54: Route: IVP, Drug Form: INJ, Dosing Weight 103.182, kg, PRN, PRN Blood Glucose Results, Start date: 12/30/21 19:54:00 CDT, Duration: 30 day, Stop date: 01/29/22 19:53:00 CDT, 0 glucagon No 1 mg, Memoria 12-31 Route: IM, l 00:54: Drug form: PDR/INJ, PRN, Dosing Weight 103.182, kg, PRN Blood Glucose Results, Start date: 12/30/21 19:54:00 CDT, Duration: 30 day, Stop date: 01/29/22 19:53:00 CDT, 0 insulin No Notes: Memoria lispro -03 (Same as: l 00:54: Humalog) Leopold 00 Roll in palms of hands gently; Do not shake vigorously . WASTE: F/P - Black; E - Municipal Trash Bin Stable for 28 days at room temperatur e. Expires in days from ____Date Brilinta No Notes: Memoria (ticagrelor 12-30 (Same as: l ) 22:06: Brilinta) Leopold 00 Saline No Notes: Memoria Flush 0.9% 12-30 (Same as: l 20:00: BD Buck 00 Posiflush) labetalol No 20 mg, 4 Isidro elisa 12-30 mL, Route: l 20:00: IVP, Drug form: INJ, Q10Min, Dosing Weight 103.182, kg, PRN Hypertensi on, Start date: 12/30/21 15:00:00 CDT, Duration: 30 day, Stop date: 02/28/22 14:59:00 CDT, 0 aspirin No Notes: (Do Isidro elisa 12-30 Not Crush) l 16:08: Do not Leopold 00 crush or chew. niCARdipine No Notes: Isidro elisa 40 mg in NS 12-30 Same as: l 200 mL 15:50: Melania Jane (Titrate.) 00 Concentrat IV 40 mg ion: (0.2 mg /1 ml ) Omnipaque No 100 mL, Memor ia 350 mg/mL 12-30 Route: l 15:08: IVP, Drug Form: SOLN, Dosing Weight 90.909, kg, ONCALL, STAT, Start date: 12/30/21 10:08:00 CDT, Duration: 1 doses or times, Dose = 2.2ml/kg, Max dose = 100ml -- "To be infused by Radiology Staff ONLY" Saline 2022-0 No Notes: Memoria Flush 0.9% 6-02 (Same as: l 14:41: BD Leopold 00 Posiflush) calcitrioL 2021-0 Yes .25ug Take 1 Univ ers 0.25 mcg 2-04 capsule by ity o f capsule 00:00: mouth [place] 00 every Medical other day. Branch calcitrioL 2021-0 Yes .25ug Take 1 Univ ers 0.25 mcg 2-04 capsule by ity o f capsule 00:00: mouth [place] 00 every Medical other day. Branch calcitrioL 2021-0 Yes .25ug Take 1 Univ ers 0.25 mcg 2-04 capsule by ity o f capsule 00:00: mouth [place] 00 every Medical other day. Branch calcitrioL 2021-0 Yes .25ug Take 1 Univ ers 0.25 mcg 2-04 capsule by ity o f capsule 00:00: mouth [place] 00 every Medical other day. Branch calcitrioL 2021-0 Yes .25ug Take 1 Univ ers 0.25 mcg 2-04 capsule by ity o f capsule 00:00: mouth [place] 00 every Medical other day. Branch calcitrioL 2021-0 Yes .25ug Take 1 Univ ers 0.25 mcg 2-04 capsule by ity o f capsule 00:00: mouth [place] 00 every Medical other day. Branch calcitrioL 2021-0 Yes .25ug Take 1 Univ ers 0.25 mcg 2-04 capsule by ity o f capsule 00:00: mouth [place] 00 every Medical other day. Branch calcitrioL 2021-0 Yes .25ug Take 1 Univ ers 0.25 mcg 2-04 capsule by ity o f capsule 00:00: mouth [place] 00 every Medical other day. Branch calcitrioL 2021-0 Yes .25ug Take 1 Univ ers 0.25 mcg 2-04 capsule by ity o f capsule 00:00: mouth [place] 00 every Medical other day. Branch calcitrioL 2021-0 Yes .25ug Take 1 Univ ers 0.25 mcg 2-04 capsule by ity o f capsule 00:00: mouth [place] 00 every Medical other day. Branch calcitrioL 2021-0 Yes .25ug Take 1 Univ ers 0.25 mcg 2-04 capsule by ity o f capsule 00:00: mouth [place] 00 every Medical other day. Branch calcitrioL 2021-0 2022- No .25ug Take 1 Uni vers 0.25 mcg 09-03 capsule by ity of capsule 00:00: 00:00 mouth [place] 00 :00 every Medical other day. Branch calcitrioL 2021-0 2022- No .25ug Take 1 Uni vers 0.25 mcg 206-26 capsule by ity of capsule 00:00: 00:00 mouth [place] 00 :00 every Medical other day. Branch calcitrioL 2021-0 2022- No .25ug Take 1 [facility] vers 0.25 mcg 09-03 capsule by [facility] of capsule 00:00: 00:00 mouth [place] 00 :00 every Medical other day. Branch calcitrioL 2021-0 202- No .25ug Take 1 [facility] vers 0.25 mcg 206-26 capsule by [facility] of capsule 00:00: 00:00 mouth [place] 00 :00 every Medical other day. Branch losartan 25 2021-0 Yes 25mg Take 1 [facility] mg tablet 1-24 tablet by it[facility] o f 00:00: mouth [place] 00 daily. Medical [facility] hydrALAZINE 2021-0 Yes [id number] 50mg Take 1 [facility] 50 mg 1-24 tablet by [facility] of tablet 00:00: mouth 2 00 (two) Medical times Branch daily. amLODIPine 2021-0 Yes 10mg Take 1 [facility] 10 mg 1-24 tablet by [facility] of tablet 00:00: mouth [place] 00 daily. Medical [facility] losartan 25 2021-0 Yes 25mg Take 1 [facility] mg tablet 1-24 tablet by ity o f 00:00: mouth [place] 00 daily. [facility] hydrALAZINE 2021-0 Yes [id number] 50mg Take 1 [facility] 50 mg 1-24 tablet by [facility] of tablet 00:00: mouth 2 [place] 00 (two) Medical times Branch daily. amLODIPine 2021-0 Yes 10mg Take 1 [facility] 10 mg 1-24 tablet by [facility] of tablet 00:00: mouth [place] 00 daily. [facility] losartan 25 2021-0 Yes 25mg Take 1 [facility] mg tablet 1-24 tablet by [facility] o f 00:00: mouth [place] 00 daily. [facility] hydrALAZINE 2021-0 Yes [id number] 50mg Take 1 [facility] 50 mg 1-24 tablet by [facility] of tablet 00:00: mouth 2 [place] 00 (two) Medical times Branch daily. amLODIPine 2022-0 Yes 10mg Take 1 [facility] 10 mg 1-24 tablet by [facility] of tablet 00:00: mouth [place] 00 daily. Medical [facility] losartan 25 2021-0 Yes 25mg Take 1 [facility] mg tablet 1-24 tablet by ity o f 00:00: mouth [place] 00 daily. [facility] hydrALAZINE 2021-0 Yes [id number] 50mg Take 1 [facility] 50 mg 1-24 tablet by [facility] tablet 00:00: mouth 2 00 (two) Medical times Branch daily. amLODIPine 2-0 Yes 10mg Take 1 [facility] 10 mg 1-24 tablet by [facility] tablet 00:00: mouth [place] 00 daily. Medical Branch losartan 25 2021-0 Yes 25mg Take 1 [facility] mg tablet 1-24 tablet by [facility] f 00:00: mouth [place] 00 daily. Medical Branch hydrALAZINE 2021-0 Yes [id number] 50mg Take 1 [facility] 50 mg 1-24 tablet by [facility] tablet 00:00: mouth 2 00 (two) Medical times Branch daily. amLODIPine 2021-0 Yes 10mg Take 1 [facility] 10 mg 1-24 tablet by [facility] tablet 00:00: mouth [place] 00 daily. Medical Branch losartan 25 2021-0 Yes 25mg Take 1 [facility] mg tablet 1-24 tablet by [facility] o f 00:00: mouth [place] 00 daily. Medical Branch hydrALAZINE 2021-0 Yes [id number] 50mg Take 1 [facility] 50 mg 1-24 tablet by [facility] tablet 00:00: mouth 2 (two) Medical times Branch daily. amLODIPine 2-0 Yes 10mg Take 1 [facility] 10 mg 1-24 tablet by [facility] tablet 00:00: mouth [place] 00 daily. Medical Branch losartan 25 2021-0 Yes 25mg Take 1 [facility] mg tablet 1-24 tablet by [facility] o f 00:00: mouth [place] 00 daily. Medical Branch hydrALAZINE 2-0 Yes [id number] 50mg Take 1 [facility] 50 mg 1-24 tablet by [facility] tablet 00:00: mouth 2 [place] 00 (two) Medical times Branch daily. amLODIPine 2-0 Yes 10mg Take 1 [facility] 10 mg 1-24 tablet by [facility] tablet 00:00: mouth [place] 00 daily. Medical Branch losartan 25 2022-0 Yes 25mg Take 1 [facility] mg tablet 1-24 tablet by [facility] o f 00:00: mouth [place] 00 daily. Medical Branch hydrALAZINE 2-0 Yes [id number] 50mg Take 1 [facility] 50 mg 1-24 tablet by [facility] tablet 00:00: mouth 2 [place] 00 (two) Medical times Branch daily. amLODIPine 2022-0 Yes 10mg Take 1 [facility] 10 mg 1-24 tablet by [facility] tablet 00:00: mouth [place] 00 daily. Medical Branch amLODIPine 2022-0 Yes 10mg Take 1 [facility] 10 mg 1-24 tablet by [facility] tablet 00:00: mouth [place] 00 daily. Medical Branch amLODIPine 2022-0 Yes 10mg Take 1 [facility] 10 mg 1-24 tablet by [facility] tablet 00:00: mouth [place] 00 daily. Medical Branch amLODIPine 2022-0 Yes 10mg Take 1 [facility] 10 mg 1-24 tablet by [facility] tablet 00:00: mouth [place] 00 daily. Medical Branch amLODIPine 2022-0 Yes 10mg Take 1 [facility] 10 mg 1-24 tablet by [facility] tablet 00:00: mouth [place] 00 daily. Medical Branch amLODIPine 2-0 Yes 10mg Take 1 [facility] 10 mg 1-24 tablet by [facility] tablet 00:00: mouth [place] 00 daily. Medical Branch amLODIPine 2-0 Yes 10mg Take 1 [facility] 10 mg 1-24 tablet by [facility] tablet 00:00: mouth [place] 00 daily. Medical Branch amLODIPine 2022-0 Yes 10mg Take 1 [facility] 10 mg 1-24 tablet by [facility] tablet 00:00: mouth [place] 00 daily. Medical Branch amLODIPine 2022-0 Yes 10mg Take 1 [facility] 10 mg 1-24 tablet by [facility] tablet 00:00: mouth [place] 00 daily. Medical Branch amLODIPine 2022-0 Yes 10mg Take 1 [facility] 10 mg 1-24 tablet by [facility] tablet 00:00: mouth [place] 00 daily. Medical Branch amLODIPine 2022-0 Yes 10mg Take 1 [facility] 10 mg 1-24 tablet by [facility] tablet 00:00: mouth [place] 00 daily. Medical Branch amLODIPine 2022-0 Yes 10mg Take 1 [facility] 10 mg 1-24 tablet by [facility] tablet 00:00: mouth [place] 00 daily. Medical Branch amLODIPine 2-0 Yes 10mg Take 1 [facility] 10 mg 1-24 tablet by [facility] tablet 00:00: mouth [place] 00 daily. Medical Branch amLODIPine 2022-0 Yes 10mg Take 1 [facility] 10 mg 1-24 tablet by [facility] tablet 00:00: mouth [place] 00 daily. Medical Branch amLODIPine 2022-0 Yes 10mg Take 10 mg [facility] 10 mg 1-24 by mouth [facility] of tablet 00:00: at [place] [address] bedtime. Medical Branch amLODIPine 2022-0 Yes 10mg Take 10 mg [facility] 10 mg 1-24 by mouth [facility] of tablet 00:00: at [place] [address] bedtime. Medical Branch amLODIPine 2022-0 Yes 10mg Take 10 mg [facility] 10 mg 1-24 by mouth [facility] of tablet 00:00: at [place] [address] bedtime. Medical Branch losartan 25 2-0 2022- No 25mg Take 1 [facility] mg tablet 1-24 10-25 tablet by [facility] of 00:00: 00:00 mouth [place] 00 :00 daily. Medical Branch hydrALAZINE 2021-0 2- No [id number] 50mg Take 1 [facility] 50 mg 1-24 10-25 tablet by [facility] of tablet 00:00: 00:00 mouth 2 [place] 00 :00 (two) Medical times Branch daily. losartan 25 2021-0 2021- No 25mg Take 1 [facility] mg tablet 1-24 10-25 tablet by [facility] of 00:00: 00:00 mouth [place] 00 :00 daily. Medical Branch hydrALAZINE 2-0 2- No [id number] 50mg Take 1 [facility] 50 mg 1-24 10-25 tablet by [facility] of tablet 00:00: 00:00 mouth 2 [place] 00 :00 (two) Medical times Branch daily. isosorbide 2021-0 Yes 20mg Take 20 mg [facility] dinitrate 8-13 by mouth 2 [facility] of 20 mg 18:03: (two) [place] tablet 49 times Medical daily. Branch isosorbide 2021-0 Yes 20mg Take 20 mg [facility] dinitrate 8-13 by mouth 2 [facility] of 20 mg 18:03: (two) [place] tablet 49 times Medical daily. Branch isosorbide 2021-0 Yes 20mg Take 20 mg [facility] dinitrate 8-13 by mouth 2 [facility] of 20 mg 18:03: (two) [place] tablet 49 times Medical daily. Branch furosemide 2020-0 Yes 80mg Take 1 [facility] 80 mg 7-13 tablet by [facility] of tablet 00:00: mouth [place] 00 every Medical morning Branch and evening. furosemide 2021-0 Yes 80mg Take 1 [facility] 80 mg 7-13 tablet by [facility] of tablet 00:00: mouth [place] 00 every Medical morning Branch and evening. furosemide 2021-0 Yes 80mg Take 1 [facility] 80 mg 7-13 tablet by [facility] of tablet 00:00: mouth [place] 00 every Medical morning Branch and evening. furosemide 2021-0 Yes 80mg Take 1 [facility] 80 mg 7-13 tablet by [facility] tablet 00:00: mouth [place] 00 every Medical morning Branch and evening. furosemide 202-0 Yes 80mg Take 1 [facility] 80 mg 7-13 tablet by [facility] of tablet 00:00: mouth [place] 00 every Medical morning Branch and evening. furosemide 2020-0 Yes 80mg Take 1 [facility] 80 mg 7-13 tablet by [facility] of tablet 00:00: mouth [place] 00 every Medical morning Branch and evening. furosemide 2021-0 Yes 80mg Take 1 [facility] 80 mg 7-13 tablet by [facility] of tablet 00:00: mouth [place] 00 every Medical morning Branch and evening. furosemide 1-0 Yes 80mg Take 1 [facility] 80 mg 7-13 tablet by [facility] of tablet 00:00: mouth [place] 00 every Medical morning Branch and evening. furosemide 202-0 2022- No 80mg Take 1 [facility] 80 mg 7-13 10-25 tablet by [facility] of tablet 00:00: 00:00 mouth [place] 00 :00 every Medical morning Branch and evening. furosemide 202-0 2022- No 80mg Take 1 [facility] 80 mg 7-13 10-25 tablet by [facility] of tablet 00:00: 00:00 mouth [place] 00 :00 every Medical morning Branch and evening. carvediloL 2021-0 Yes [id number] 25mg Take 1 [facility] 25 mg 3-24 tablet by [facility] of tablet 00:00: mouth 2 [place] 00 (two) Medical times Branch daily with meals. carvediloL 2021-0 Yes [id number] 25mg Take 1 [facility] 25 mg 3-24 tablet by [facility] of tablet 00:00: mouth (two) Medical times Branch daily with meals. carvediloL 2020-0 Yes [id number] 25mg Take 1 [facility] 25 mg 3-24 tablet by [facility] of tablet 00:00: mouth (two) Medical times Branch daily with meals. carvediloL 2020-0 Yes [id number] 25mg Take 1 [facility] 25 mg 3-24 tablet by [facility] of tablet 00:00: mouth (two) Medical times Branch daily with meals. carvediloL 2020-0 Yes [id number] 25mg Take 1 [facility] 25 mg 3-24 tablet by [facility] of tablet 00:00: mouth (two) Medical times Branch daily with meals. carvediloL 2020-0 Yes [id number] 25mg Take 1 [facility] 25 mg 3-24 tablet by [facility] of tablet 00:00: mouth (two) Medical times Branch daily with meals. carvediloL 2020-0 Yes [id number] 25mg Take 1 [facility] 25 mg 3-24 tablet by [facility] of tablet 00:00: mouth (two) Medical times Branch daily with meals. carvediloL 2020-0 Yes [id number] 25mg Take 1 [facility] 25 mg 3-24 tablet by [facility] of tablet 00:00: mouth (two) Medical times Branch daily with meals. carvediloL 2020-0 Yes [id number] 25mg Take 1 [facility] 25 mg 3-24 tablet by [facility] of tablet 00:00: mouth (two) Medical times Branch daily with meals. carvediloL 2020-0 Yes [id number] 25mg Take 1 [facility] 25 mg 3-24 tablet by [facility] of tablet 00:00: mouth (two) Medical times Branch daily with meals. carvediloL 202-0 Yes [id number] 25mg Take 1 [facility] 25 mg 3-24 tablet by [facility] of tablet 00:00: mouth (two) Medical times Branch daily with meals. carvediloL 2021-0 Yes [id number] 25mg Take 1 [facility] 25 mg 3-24 tablet by [facility] of tablet 00:00: mouth (two) Medical times Branch daily with meals. carvediloL 2020-0 Yes [id number] 25mg Take 1 [facility] 25 mg 3-24 tablet by [facility] of tablet 00:00: mouth (two) Medical times Branch daily with meals. carvediloL 2020-0 Yes [id number] 25mg Take 1 [facility] 25 mg 3-24 tablet by [facility] of tablet 00:00: mouth (two) Medical times Branch daily with meals. carvediloL 2020-0 Yes [id number] 25mg Take 1 [facility] 25 mg 3-24 tablet by [facility] of tablet 00:00: mouth (two) Medical times Branch daily with meals. carvediloL 2020-0 Yes [id number] 25mg Take 1 [facility] 25 mg 3-24 tablet by [facility] of tablet 00:00: mouth (two) Medical times Branch daily with meals. carvediloL 2020-0 Yes [id number] 25mg Take 1 [facility] 25 mg 3-24 tablet by [facility] of tablet 00:00: mouth (two) Medical times Branch daily with meals. carvediloL 2020-0 Yes [id number] 25mg Take 1 [facility] 25 mg 3-24 tablet by [facility] of tablet 00:00: mouth (two) Medical times Branch daily with meals. carvediloL 2020-0 Yes [id number] 25mg Take 1 [facility] 25 mg 3-24 tablet by [facility] of tablet 00:00: mouth (two) Medical times Branch daily with meals. carvediloL 2020-0 Yes [id number] 25mg Take 1 [facility] 25 mg 3-24 tablet by [facility] of tablet 00:00: mouth (two) Medical times Branch daily with meals. carvediloL 2020-0 Yes [id number] 25mg Take 1 [facility] 25 mg 3-24 tablet by [facility] of tablet 00:00: mouth (two) Medical times Branch daily with meals. carvediloL 2020-0 Yes [id number] 25mg Take 1 [facility] 25 mg 3-24 tablet by [facility] of tablet 00:00: mouth (two) Medical times Branch daily with meals. carvediloL 2020-0 Yes [id number] 25mg Take 1 [facility] 25 mg 3-24 tablet by [facility] of tablet 00:00: mouth 2 (two) Medical times Branch daily with meals. carvediloL Yes [id number] 25mg Take 1 [facility] 25 mg 3-24 tablet by [facility]y of tablet 00:00: mouth 2 00 (two) Medical times Branch daily with meals. GLUCAGON Yes [id number] INJECT 1 [facility] EMERGENCY 4-08 MG ity of KIT, HUMAN, 00:00: INTRAMUSCU [place] 1 mg 00 LARLY Medical injection NEEDED Branch (FOR HYPOGLYCEM IA) GLUCAGON Yes [id number] INJECT 1 [facility] EMERGENCY 4-08 MG ity of KIT, HUMAN, 00:00: INTRAMUSCU [place] 1 mg 00 LARLY Medical injection NEEDED Branch (FOR HYPOGLYCEM IA) GLUCAGON Yes [id number] INJECT 1 [facility] EMERGENCY 4-08 MG ity of KIT, HUMAN, 00:00: INTRAMUSCU [place] 1 mg 00 LARLY Medical injection NEEDED Branch (FOR HYPOGLYCEM IA) GLUCAGON Yes [id number] INJECT 1 [facility] EMERGENCY 4-08 MG ity of KIT, HUMAN, 00:00: INTRAMUSCU [place] 1 mg 00 LARLY Medical injection NEEDED Branch (FOR HYPOGLYCEM IA) GLUCAGON Yes [id number] INJECT 1 [facility] EMERGENCY 4-08 MG ity of KIT, HUMAN, 00:00: INTRAMUSCU [place] 1 mg 00 LARLY Medical injection NEEDED Branch (FOR HYPOGLYCEM IA) GLUCAGON Yes [id number] INJECT 1 [facility] EMERGENCY 4-08 MG ity of KIT, HUMAN, 00:00: INTRAMUSCU [place] 1 mg 00 LARLY Medical injection NEEDED Branch (FOR HYPOGLYCEM IA) GLUCAGON Yes [id number] INJECT 1 [facility] EMERGENCY 4-08 MG ity of KIT, HUMAN, 00:00: INTRAMUSCU [place] 1 mg 00 LARLY Medical injection NEEDED Branch (FOR HYPOGLYCEM IA) GLUCAGON Yes [id number] INJECT 1 [facility] EMERGENCY 4-08 MG ity of KIT, HUMAN, 00:00: INTRAMUSCU [place] 1 mg 00 LARLY Medical injection NEEDED Branch (FOR HYPOGLYCEM IA) GLUCAGON Yes [id number] INJECT 1 [facility] EMERGENCY 4-08 MG ity of KIT, HUMAN, 00:00: INTRAMUSCU [place] 1 mg 00 LARLY Medical injection NEEDED Branch (FOR HYPOGLYCEM IA) GLUCAGON 2019- Yes [id number] INJECT 1 [facility] EMERGENCY 4-08 MG ity of KIT, HUMAN, 00:00: INTRAMUSCU [place] 1 mg 00 LARLY Medical injection NEEDED Branch (FOR HYPOGLYCEM IA) GLUCAGON Yes [id number] INJECT 1 [facility] EMERGENCY 4-08 MG ity of KIT, HUMAN, 00:00: INTRAMUSCU [place] 1 mg 00 LARLY Medical injection NEEDED Branch (FOR HYPOGLYCEM IA) GLUCAGON Yes [id number] INJECT 1 [facility] EMERGENCY 4-08 MG ity of KIT, HUMAN, 00:00: INTRAMUSCU [place] 1 mg 00 LARLY Medical injection NEEDED Branch (FOR HYPOGLYCEM IA) GLUCAGON Yes [id number] INJECT 1 [facility] EMERGENCY 4-08 MG ity of KIT, HUMAN, 00:00: INTRAMUSCU [place] 1 mg 00 LARLY Medical injection NEEDED Branch (FOR HYPOGLYCEM IA) GLUCAGON Yes [id number] INJECT 1 [facility] EMERGENCY 4-08 MG ity of KIT, HUMAN, 00:00: INTRAMUSCU [place] 1 mg 00 LARLY Medical injection NEEDED Branch (FOR HYPOGLYCEM IA) GLUCAGON Yes [id number] INJECT 1 [facility] EMERGENCY 4-08 MG ity of KIT, HUMAN, 00:00: INTRAMUSCU [place] 1 mg 00 LARLY Medical injection NEEDED Branch (FOR HYPOGLYCEM IA) GLUCAGON Yes [id number] INJECT 1 [facility] EMERGENCY 4-08 MG ity of KIT, HUMAN, 00:00: INTRAMUSCU [place] 1 mg 00 LARLY Medical injection NEEDED Branch (FOR HYPOGLYCEM IA) GLUCAGON Yes [id number] INJECT 1 [facility] EMERGENCY 4-08 MG ity of KIT, HUMAN, 00:00: INTRAMUSCU [place] 1 mg 00 LARLY Medical injection NEEDED Branch (FOR HYPOGLYCEM IA) GLUCAGON 2018- Yes [id number] INJECT 1 [facility] EMERGENCY 4-08 MG ity of KIT, HUMAN, 00:00: INTRAMUSCU [place] 1 mg 00 LARLY Medical injection NEEDED Branch (FOR HYPOGLYCEM IA) GLUCAGON Yes [id number] INJECT 1 [facility] EMERGENCY 4-08 MG ity of KIT, HUMAN, 00:00: INTRAMUSCU [place] 1 mg 00 LARLY Medical injection NEEDED Branch (FOR HYPOGLYCEM IA) GLUCAGON 2019 Yes [id number] INJECT 1 [facility] EMERGENCY 4-08 MG ity of KIT, HUMAN, 00:00: INTRAMUSCU [place] 1 mg 00 LARLY Medical injection NEEDED Branch (FOR HYPOGLYCEM IA) GLUCAGON Yes [id number] INJECT 1 [facility] EMERGENCY 4-08 MG ity of KIT, HUMAN, 00:00: INTRAMUSCU [place] 1 mg 00 LARLY Medical injection NEEDED Branch (FOR HYPOGLYCEM IA) GLUCAGON Yes [id number] INJECT 1 [facility] EMERGENCY 4-08 MG ity of KIT, HUMAN, 00:00: INTRAMUSCU [place] 1 mg 00 LARLY Medical injection NEEDED Branch (FOR HYPOGLYCEM IA) GLUCAGON Yes [id number] INJECT 1 [facility] EMERGENCY 4-08 MG ity of KIT, HUMAN, 00:00: INTRAMUSCU [place] 1 mg 00 LARLY Medical injection NEEDED Branch (FOR HYPOGLYCEM IA) GLUCAGON Yes [id number] INJECT 1 [facility] EMERGENCY 4-08 MG ity of KIT, HUMAN, 00:00: INTRAMUSCU [place] 1 mg 00 LARLY Medical injection NEEDED Branch (FOR HYPOGLYCEM IA) carvedilol 2017-0 Yes 12.5mg Take 12.[address] [facility] ([facility]) 9-25 [facility] 11:17: mouth 2 Medical tablet 27 (two) Center times daily with breakfast and dinner. carvedilol 2017-0 Yes 12.5mg Take 12.[address] [facility] ([facility]) 9-25 mg [facility] 12.[facility] MG 11:17: mouth 2 Medical tablet 27 (two) Center times daily with breakfast and dinner. carvedilol 2018-0 Yes 12.5mg Take 12.[address] [facility] ([facility]) 9-25 mg by [facility] 12.5 MG 11:17: mouth 2 Medical tablet 27 (two) Center times daily with breakfast and dinner. carvedilol 2018-0 Yes 12.5mg Take 12.[address] [facility] ([facility]) 9-25 mg by [facility] 12.5 MG 11:17: mouth 2 Medical tablet 27 (two) Center times daily with breakfast and dinner. carvedilol 2017-0 Yes 12.5mg Take 12.[address] [facility] ([facility]) 9-25 mg by [facility] 12.5 MG 11:17: mouth 2 Medical tablet 27 (two) Center times daily with breakfast and dinner. carvedilol 2018-0 Yes 12.5mg Take 12.[address] [facility] ([facility]) 9-25 mg by [facility] 12.5 MG 11:17: mouth 2 Medical tablet 27 (two) Center times daily with breakfast and dinner. carvedilol 2017-0 Yes 12.5mg Take 12.[address] [facility] ([facility]) 9-25 mg by [facility] 12.5 MG 11:17: mouth 2 Medical tablet 27 (two) Center times daily with breakfast and dinner. carvedilol 2018-0 Yes 12.5mg Take 12.[address] [facility] ([facility]) 9-25 mg by [facility] 12.5 MG 11:17: mouth 2 Medical tablet 27 (two) Center times daily with breakfast and dinner. carvedilol 2017-0 Yes 12.5mg Take 12.[address] [facility] ([facility]) 9-25 mg [facility] 12.5 MG 11:17: mouth 2 Medical tablet 27 (two) Center times daily with breakfast and dinner. carvedilol 2017-0 Yes 12.5mg Take 12.[address] [facility] ([facility]) 9-25 mg by [facility] 12.5 MG 11:17: mouth 2 Medical tablet 27 (two) Center times daily with breakfast and dinner. carvedilol 2017-0 Yes 12.5mg Take 12.[address] [facility] ([facility]) 9-25 mg by [facility] 12.5 MG 11:17: mouth 2 Medical tablet 27 (two) Center times daily with breakfast and dinner. carvedilol 2017-0 Yes 12.5mg Take 12.[address] [facility] ([facility]) 9-25 mg by [facility] 12.5 MG 11:17: mouth 2 Medical tablet 27 (two) Center times daily with breakfast and dinner. carvedilol 2018-0 Yes 12.5mg Take 12.[address] [facility] ([facility]) 9-25 mg by [facility] 12.5 MG 11:17: mouth 2 Medical tablet 27 (two) Center times daily with breakfast and dinner. carvedilol 2018-0 Yes 12.5mg Take 12.[address] [facility] ([facility]) 9-25 mg by [facility] 12.5 MG 11:17: mouth 2 Medical tablet 27 (two) Center times daily with breakfast and dinner. carvedilol 2018-0 Yes 12.5mg Take 12.[address] [facility] ([facility]) 9-25 mg by [facility] 12.5 MG 11:17: mouth 2 Medical tablet 27 (two) Center times daily with breakfast and dinner. insulin 2018-[address]U [facility] [facility] 70/30, 9-25 50-55 [facility] 11:14: Units Medical NPH-insulin 36 subcutaneo Ce nter regular, usly 2 (HUMULIN (two) 70/30) 100 times unit/mL daily (70-30) before InPn meals. insulin pen insulin 2018-0 Yes 50U Inject [facility] 70/30, 9-25 50-55 [facility] 11:14: Units Medical NPH-insulin 36 subcutaneo Ce nter regular, usly 2 (HUMULIN (two) 70/30) 100 times unit/mL daily (70-30) before InPn meals. insulin pen insulin 2018-0 Yes [facility]U [facility] 70/30, 9-25 50-55 [facility] 11:14: Units Medical NPH-insulin 36 subcutaneo Ce nter regular, usly 2 (HUMULIN (two) 70/30) 100 times unit/mL daily (70-30) before InPn meals. insulin pen insulin 2018-0 Yes 50U [facility]ject [facility] 70/30, 9-25 50-55 [facility] 11:14: Units Medical NPH-insulin 36 subcutaneo Ce nter regular, usly 2 (HUMULIN (two) 70/30) 100 times unit/mL daily (70-30) before InPn meals. insulin pen insulin 2018-0 Yes [facility]U [facility]ject [facility] 70/30, 9-25 50-55 [facility] 11:14: Units Medical NPH-insulin 36 subcutaneo Ce nter regular, usly 2 (HUMULIN (two) 70/30) 100 times unit/mL daily (70-30) before InPn meals. insulin pen insulin 2018-0 Yes [facility]U [facility] 70/30, 9-25 50-55 [facility] 11:14: Units Medical NPH-insulin 36 subcutaneo Ce nter regular, usly 2 (HUMULIN (two) 70/30) 100 times unit/mL daily (70-30) before InPn meals. insulin pen insulin 2018-0 Yes 50U Inject [facility] 70/30, 9-25 50-55 [facility] 11:14: Units Medical NPH-insulin 36 subcutaneo Ce nter regular, usly 2 (HUMULIN (two) 70/30) 100 times unit/mL daily (70-30) before InPn meals. insulin pen insulin 2018-0 Yes 50U Inject [facility] 70/30, 9-25 50-55 [facility] 11:14: Units Medical NPH-insulin 36 subcutaneo Ce nter regular, usly 2 (HUMULIN (two) 70/30) 100 times unit/mL daily (70-30) before InPn meals. insulin pen insulin 2018-0 Yes 50U [facility] 70/30, 9-25 50-55 [facility] 11:14: Units Medical NPH-insulin 36 subcutaneo Ce nter regular, usly 2 (HUMULIN (two) 70/30) 100 times unit/mL daily (70-30) before InPn meals. insulin pen insulin 2018-0 Yes 50U [facility] 70/30, 9-25 50-55 [facility] 11:14: Units Medical NPH-insulin 36 subcutaneo Ce nter regular, usly 2 (HUMULIN (two) 70/30) 100 times unit/mL daily (70-30) before InPn meals. insulin pen insulin 2018-0 Yes 50U Inject [facility] 70/30, 9-25 50-55 [facility] 11:14: Units Medical NPH-insulin 36 subcutaneo Ce nter regular, usly 2 (HUMULIN (two) 70/30) 100 times unit/mL daily (70-30) before InPn meals. insulin pen insulin 2018-0 Yes 50U Inject [facility] 70/30, 9-25 50-55 [facility] 11:14: Units Medical NPH-insulin 36 subcutaneo Ce nter regular, usly 2 (HUMULIN (two) 70/30) 100 times unit/mL daily (70-30) before InPn meals. insulin pen insulin 2018-0 Yes 50U Inject [facility] 70/30, 9-25 50-55 [facility] 11:14: Units Medical NPH-insulin 36 subcutaneo Ce nter regular, usly 2 (HUMULIN (two) 70/30) 100 times unit/mL daily (70-30) before InPn meals. insulin pen insulin 2018-0 Yes 50U Inject [facility] 70/30, 9 50-55 [facility] 11:14: Units Medical NPH-insulin 36 subcutaneo Ce nter regular, usly 2 (HUMULIN (two) 70/30) 100 times unit/mL daily (70-30) before InPn meals. insulin pen insulin 2018-0 Yes 50U Inject [facility] 70/30, 9- 50-55 [facility] 11:14: Units Medical NPH-insulin 36 subcutaneo Ce nter regular, usly 2 (HUMULIN (two) 70/30) 100 times unit/mL daily (70-30) before InPn meals. insulin pen telmisartan 2018-0 Yes 1{tbl} QD Take [address] [facility] [address] [facility] -hydrochlor 9-25 tablet by [facility] othiazide 10:51: mouth Medical (MICARDIS 26 daily. [place] HCT) 40-12.5 mg per tablet telmisartan 2018-0 Yes 1{tbl} QD Take [address] [facility] [address] -hydrochlor 9-25 tablet by [facility] othiazide 10:51: mouth Medical (MICARDIS 26 daily. Center [facility]) 40-12.5 mg per tablet telmisartan 2018-0 Yes 1{tbl} QD Take [address] [facility] [address] -hydrochlor 9-25 tablet by [facility] othiazide 10:51: mouth Medical (MICARDIS 26 daily. Center HCT) 40-12.5 mg per tablet telmisartan 2018-0 Yes 1{tbl} QD Take [address] [facility] [address] -hydrochlor 9-25 tablet by [facility] othiazide 10:51: mouth Medical (MICARDIS 26 daily. Center HCT) 40-12.5 mg per tablet telmisartan 2018-0 Yes 1{tbl} QD Take [address] [facility] [address] [facility] -hydrochlor 9-25 tablet by [facility] othiazide 10:51: mouth Medical (MICARDIS 26 daily. Center HCT) 40-12.5 mg per tablet telmisartan 2018-0 Yes 1{tbl} QD Take [address] [facility] [address] -hydrochlor 9-25 tablet by [facility] othiazide 10:51: mouth Medical (MICARDIS 26 daily. Center [facility]) 40-12.5 mg per tablet telmisartan 2018-0 Yes 1{tbl} QD Take [address] [facility] [address] -hydrochlor 9-25 tablet by [facility] othiazide 10:51: mouth Medical (MICARDIS 26 daily. [facility]) 40-12.5 mg per tablet telmisartan 2018-0 Yes 1{tbl} QD Take [address] [facility] [address] -hydrochlor 9-25 tablet by [facility] othiazide 10:51: mouth Medical (MICARDIS 26 daily. [facility]) 40-12.5 mg per tablet telmisartan 2018-0 Yes 1{tbl} QD Take [address] [facility] [address] -hydrochlor 9-25 tablet by [facility] othiazide 10:51: mouth Medical (MICARDIS 26 daily. [facility]) 40-12.5 mg per tablet telmisartan 2018-0 Yes 1{tbl} QD Take [address] [facility] [address] -hydrochlor 9-25 tablet by [facility] othiazide 10:51: mouth Medical (MICARDIS 26 daily. [facility]) 40-12.5 mg per tablet telmisartan 2018-0 Yes 1{tbl} QD Take [address] [facility] [address] -hydrochlor 9-25 tablet by [facility] othiazide 10:51: mouth Medical (MICARDIS 26 daily. [facility]) 40-12.5 mg per tablet telmisartan 2018-0 Yes 1{tbl} QD Take [address] -hydrochlor 9-25 tablet by [facility] othiazide 10:51: mouth Medical (MICARDIS 26 daily. [facility]) 40-12.5 mg per tablet telmisartan 2018-0 Yes 1{tbl} QD Take [address] [facility] [address] -hydrochlor 9-25 tablet by [facility] othiazide 10:51: mouth Medical (MICARDIS 26 daily. [facility]) 40-12.5 mg per tablet telmisartan 2018-0 Yes 1{tbl} QD Take [address] [facility] [address] -hydrochlor 9-25 tablet by [facility] othiazide 10:51: mouth Medical (MICARDIS 26 daily. [facility]) 40-12.5 mg per tablet telmisartan 2018-0 Yes 1{tbl} QD Take [address] -hydrochlor 9-25 tablet by [facility] othiazide 10:51: mouth Medical (MICARDIS 26 daily. [place] HCT) 40-12.5 mg per tablet NIFEdipine 2018-0 Yes 90mg QD Take [address] [facility] (ADALAT CC) 5-21 by mouth [facility] 90 MG 24 hr 00:00: daily. Medi michelle tablet 00 [place] NIFEdipine 2018-0 Yes 90mg QD Take [address] [facility] (ADALAT CC) 5-21 by mouth [facility] 90 MG 24 hr 00:00: daily. Medi [facility]le tablet 00 [place] NIFEdipine 2018-0 Yes 90mg QD Take [address] (ADALAT CC) 5-21 by mouth [facility] 90 MG 24 hr 00:00: daily. Medi mic[facility]le tablet 00 [place] NIFEdipine 2018-0 Yes 90mg QD Take [address] (ADALAT CC) 5-21 by mouth [facility] 90 MG 24 hr 00:00: daily. Medi michelle tablet 00 [place] NIFEdipine 2018-0 Yes 90mg QD Take [address] (ADALAT CC) 5-21 by mouth [facility] 90 MG 24 hr 00:00: daily. Medi michelle tablet 00 [place] NIFEdipine 2018-0 Yes 90mg QD Take [address] (ADALAT CC) 5-21 by mouth [facility] 90 MG 24 hr 00:00: daily. Medi michelle tablet 00 [place] NIFEdipine 2018-0 Yes 90mg QD Take [address] (ADALAT CC) 5-21 by mouth [facility] 90 MG 24 hr 00:00: daily. Medi michelle tablet 00 [place] NIFEdipine 2018-0 Yes 90mg QD Take [address] (ADALAT CC) 5-21 by mouth [facility] 90 MG 24 hr 00:00: daily. Medi michelle tablet 00 [place] NIFEdipine 2018-0 Yes 90mg QD Take [address] (ADALAT CC) 5-21 by mouth [facility] 90 MG 24 hr 00:00: daily. Medi michelle tablet 00 [place] NIFEdipine 2018-0 Yes 90mg QD Take [address] (ADALAT CC) 5-21 by mouth [facility] 90 MG 24 hr 00:00: daily. Medi michelle tablet 00 [place] NIFEdipine 2018-0 Yes 90mg QD Take [address] (ADALAT CC) 5-21 by mouth [facility] 90 MG 24 hr 00:00: daily. Medi michelle tablet 00 [place] NIFEdipine 2018-0 Yes 90mg QD Take [address] (ADALAT CC) 5-21 by mouth [facility] 90 MG 24 hr 00:00: daily. Medi michelle tablet 00 [place] NIFEdipine 0 Yes 90mg QD Take [address] (ADALAT CC) 5-21 by mouth [place] [facility] 90 MG 24 hr 00:00: daily. Medi michelle tablet 00 [place] NIFEdipine 0 Yes 90mg QD Take [address] (ADALAT CC) 5-21 by mouth [place] [facility] 90 MG 24 hr 00:00: daily. Medi michelle tablet 00 [place] NIFEdipine 0 Yes 90mg QD Take [address] (ADALAT CC) 5-21 by mouth [place] [facility] 90 MG 24 hr 00:00: daily. Medi michelle tablet 00 [place] NIFEdipine 3- No 90mg QD Take [address] [facility] (ADALAT CC) - 05-03 by mouth [facility] 90 MG 24 hr 00:00: 00:00 daily. Med ical tablet 00 :00 [place] NIFEdipine 2017-2022- No 90mg QD Take [address] [facility] (ADALAT CC) - 05-03 by mouth [place] [facility] 90 MG 24 hr 00:00: 00:00 daily. Med ical tablet 00 :00 [place] NIFEdipine 0 2022- No 90mg QD Take [address] [facility] (ADALAT CC) 12-18 05-03 by mouth [place] [facility] 90 MG 24 hr 00:00: 00:00 daily. Med ical tablet 00 :00 [place] NIFEdipine 2017-0 2022- No 90mg QD Take [address] [facility] (ADALAT CC) 12-18 05-03 by mouth [place] [facility] 90 MG 24 hr 00:00: 00:00 daily. Med ical tablet 00 :00 [place] NIFEdipine 0 3- No 90mg QD Take [address] [facility] (ADALAT CC) - 05-03 by mouth [place] [facility] 90 MG 24 hr 00:00: 00:00 daily. Med ical tablet 00 :00 [place] NIFEdipine 2017-0 3- No 90mg QD Take [address] [facility] (ADALAT CC) 5- 05-03 by mouth [place] [facility] 90 MG 24 hr 00:00: 00:00 daily. Med ical tablet 00 :00 [place] NIFEdipine 2017-0 3- No 90mg QD Take [address] [facility] (ADALAT CC) 5-21 05-03 by mouth [place] [facility] 90 MG 24 hr 00:00: 00:00 daily. Med ical tablet 00 :00 [place] NIFEdipine 2017-3- No 90mg QD Take [address] [facility] (ADALAT CC) 12-18 05-03 by mouth [place] [facility] 90 MG 24 hr 00:00: 00:00 daily. Med ical tablet 00 :00 [place] NIFEdipine 2017-2022- No 90mg QD Take [address] [facility] (ADALAT CC) 12-18 05-03 by mouth [place] [facility] 90 MG 24 hr 00:00: 00:00 daily. Med ical tablet 00 :00 [place] NIFEdipine 2017-2022- No 90mg QD Take [address] [facility] (ADALAT CC) 12-18 05-03 by mouth [place] 90 MG 24 hr 00:00: 00:00 daily. Med ical tablet 00 :00 [place] NIFEdipine 2017-2022- No 90mg QD Take [address] [facility] (ADALAT CC) 12-18 05-03 by mouth [place] [facility] 90 MG 24 hr 00:00: 00:00 daily. Med ical tablet 00 :00 [place] NIFEdipine 2022- No 90mg QD Take [address] [facility] (ADALAT CC) 12-18 05-03 by mouth [place] [facility] 90 MG 24 hr 00:00: 00:00 daily. Med ical tablet 00 :00 [place] NIFEdipine 2017-2022- No 90mg QD Take [address] [facility] (ADALAT CC) 12-18 05-03 by mouth [place] [facility] 90 MG 24 hr 00:00: 00:00 daily. Med ical tablet 00 :00 [place] NIFEdipine 2017-0 2022- No 90mg QD Take [address] [facility] (ADALAT CC) 12-18 05-03 by mouth [place] [facility] 90 MG 24 hr 00:00: 00:00 daily. Med ical tablet 00 :00 [place] NIFEdipine 2017-0 3- No 90mg QD Take [address] [facility] (ADALAT CC) 12-18 05-03 by mouth [place] [facility] 90 MG 24 hr 00:00: 00:00 daily. Med ical tablet 00 :00 [place] NIFEdipine 2017-0 3- No 90mg QD Take [address] [facility] (ADALAT CC) 12-18 05-03 by mouth [place] [facility] 90 MG 24 hr 00:00: 00:00 daily. Med ical tablet 00 :00 [place] NIFEdipine 2022- No 90mg QD Take [address] [facility] (ADALAT CC) 12-18 05-03 by mouth [place] [facility] 90 MG 24 hr 00:00: 00:00 daily. Med ical tablet 00 :00 [place] NIFEdipine 2022- No 90mg QD Take [address] [facility] (ADALAT CC) 12-18-03 by mouth [place] [facility] 90 MG 24 hr 00:00: 00:00 daily. Med ical tablet 00 :00 [place] NIFEdipine 2022- No 90mg QD Take [address] [facility] (ADALAT CC) 12-18-03 by mouth [place] [facility] 90 MG 24 hr 00:00: 00:00 daily. Med ical tablet 00 :00 [place] NIFEdipine 2017-2022- No 90mg QD Take [address] [facility] (ADALAT CC) 12-18-03 by mouth [place] [facility] 90 MG 24 hr 00:00: 00:00 daily. Med ical tablet 00 :00 [place] NIFEdipine 2022- No 90mg QD Take [address] [facility] (ADALAT CC) 12-18-03 by mouth [place] [facility] 90 MG 24 hr 00:00: 00:00 daily. Med ical tablet 00 :00 [place] NIFEdipine 2022- No 90mg QD Take [address] [facility] (ADALAT CC) 12-18-03 by mouth [place] [facility] 90 MG 24 hr 00:00: 00:00 daily. Med ical tablet 00 :00 [place] NIFEdipine 2022- No 90mg QD Take [address] [facility] (ADALAT CC) 12-18-03 by mouth [place] [facility] 90 MG 24 hr 00:00: 00:00 daily. Med ical tablet 00 :00 [place] NIFEdipine 2022- No 90mg QD Take [address] [facility] (ADALAT CC) 12-18 05-03 by mouth [place] 90 MG 24 hr 00:00: 00:00 daily. Med ical tablet 00 :00 [place] NIFEdipine 2017-0 3- No 90mg QD Take [address] [facility] (ADALAT CC) 12-18-03 by mouth [place] 90 MG 24 hr 00:00: 00:00 daily. Med ical tablet 00 :00 [place] NIFEdipine 2017-0 2022- No 90mg QD Take [address] [facility] (ADALAT CC) 12-18-03 by mouth [place] [facility] 90 MG 24 hr 00:00: 00:00 daily. Med ical tablet 00 :00 [place] NIFEdipine 2022- No 90mg QD Take [address] [facility] (ADALAT CC) 12-18-03 by mouth [place] [facility] 90 MG 24 hr 00:00: 00:00 daily. Med ical tablet 00 :00 [place] NIFEdipine 2022- No 90mg QD Take [address] [facility] (ADALAT CC) 12-18-03 by mouth [place] [facility] 90 MG 24 hr 00:00: 00:00 daily. Med ical tablet 00 :00 [place] NIFEdipine 2022- No 90mg QD Take [address] [facility] (ADALAT CC) 12-18- by mouth [place] [facility] 90 MG 24 hr 00:00: 00:00 daily. Med ical tablet 00 :00 [place] NIFEdipine 2022- No 90mg QD Take [address] [facility] (ADALAT CC) 12-18-03 by mouth [place] [facility] 90 MG 24 hr 00:00: 00:00 daily. Med ical tablet 00 :00 [place] NIFEdipine 2022- No 90mg QD Take [address] [facility] (ADALAT CC) 12-18-03 by mouth [place] [facility] 90 MG 24 hr 00:00: 00:00 daily. Med ical tablet 00 :00 [place] NIFEdipine 2022- No 90mg QD Take [address] [facility] (ADALAT CC) 12-18-03 by mouth [place] [facility] 90 MG 24 hr 00:00: 00:00 daily. Med ical tablet 00 :00 [place] NIFEdipine 2022- No 90mg QD Take [address] [facility] (ADALAT CC) 12-18-03 by mouth [place] [facility] 90 MG 24 hr 00:00: 00:00 daily. Med ical tablet 00 :00 [place] HUMULIN N Yes INJECT 40 [facility] 100 unit/mL 4-02 UNITS ity of injection 00:00: UNDER THE [place] 00 SKIN TWICE Medical DAILY Branch BEFORE BREAKFAST AND SUPPER HUMULIN N Yes INJECT 40 [facility] vers 100 unit/mL 4-02 UNITS ity of injection 00:00: UNDER THE [place] [facility] 00 SKIN TWICE Medical DAILY Branch BEFORE BREAKFAST AND SUPPER HUMULIN N Yes INJECT 40 [facility] 100 unit/mL 4-02 UNITS ity of injection 00:00: UNDER THE [place] [facility] 00 SKIN TWICE Medical DAILY Branch BEFORE BREAKFAST AND SUPPER HUMULIN N Yes INJECT 40 [facility] 100 unit/mL 4-02 UNITS ity of injection 00:00: UNDER THE [place] [facility] 00 SKIN TWICE Medical DAILY Branch BEFORE BREAKFAST AND SUPPER HUMULIN N Yes INJECT 40 [facility] 100 unit/mL 4-02 UNITS ity of injection 00:00: UNDER THE [place] [facility] 00 SKIN TWICE Medical DAILY Branch BEFORE BREAKFAST AND SUPPER HUMULIN N Yes INJECT 40 [facility] 100 unit/mL 4-02 UNITS ity of injection 00:00: UNDER THE [place] [facility] 00 SKIN TWICE Medical DAILY Branch BEFORE BREAKFAST AND SUPPER HUMULIN N Yes INJECT 40 [facility] 100 unit/mL 4-02 UNITS ity of injection 00:00: UNDER THE [place] [facility] 00 SKIN TWICE Medical DAILY Branch BEFORE BREAKFAST AND SUPPER HUMULIN N Yes INJECT 40 [facility] 100 unit/mL 4-02 UNITS ity of injection 00:00: UNDER THE [place] [facility] 00 SKIN TWICE Medical DAILY Branch BEFORE BREAKFAST AND SUPPER HUMULIN N Yes INJECT 40 [facility] 100 unit/mL 4-02 UNITS ity of injection 00:00: UNDER THE [place] [facility] 00 SKIN TWICE Medical DAILY Branch BEFORE BREAKFAST AND SUPPER HUMULIN N Yes INJECT 40 [facility] 100 unit/mL 4-02 UNITS ity of injection 00:00: UNDER THE [place] [facility] 00 SKIN TWICE Medical DAILY Branch BEFORE BREAKFAST AND SUPPER HUMULIN N Yes INJECT 40 [facility] 100 unit/mL 4-02 UNITS ity of injection 00:00: UNDER THE [place] [facility] 00 SKIN TWICE Medical DAILY Branch BEFORE BREAKFAST AND SUPPER HUMULIN N Yes INJECT 40 [facility] 100 unit/mL 4-02 UNITS ity of injection 00:00: UNDER THE [place] [facility] 00 SKIN TWICE Medical DAILY Branch BEFORE BREAKFAST AND SUPPER HUMULIN N Yes INJECT 40 [facility] 100 unit/mL 4-02 UNITS ity of injection 00:00: UNDER THE [place] [facility] 00 SKIN TWICE Medical DAILY Branch BEFORE BREAKFAST AND SUPPER HUMULIN N Yes INJECT 40 [facility] 100 unit/mL 4-02 UNITS ity of injection 00:00: UNDER THE [place] [facility] 00 SKIN TWICE Medical DAILY Branch BEFORE BREAKFAST AND SUPPER HUMULIN N Yes INJECT 40 [facility] 100 unit/mL 4-02 UNITS ity of injection 00:00: UNDER THE [place] [facility] 00 SKIN TWICE Medical DAILY Branch BEFORE BREAKFAST AND SUPPER HUMULIN N Yes INJECT 40 [facility] 100 unit/mL 4-02 UNITS ity of injection 00:00: UNDER THE [place] [facility] 00 SKIN TWICE Medical DAILY Branch BEFORE BREAKFAST AND SUPPER HUMULIN N Yes INJECT 40 [facility] 100 unit/mL 4-02 UNITS ity of injection 00:00: UNDER THE [place] [facility] 00 SKIN TWICE Medical DAILY Branch BEFORE BREAKFAST AND SUPPER HUMULIN N Yes INJECT 40 [facility] 100 unit/mL 4-02 UNITS ity of injection 00:00: UNDER THE [place] [facility] 00 SKIN TWICE Medical DAILY Branch BEFORE BREAKFAST AND SUPPER HUMULIN N Yes INJECT 40 [facility] 100 unit/mL 4-02 UNITS ity of injection 00:00: UNDER THE [place] [facility] 00 SKIN TWICE Medical DAILY Branch BEFORE BREAKFAST AND SUPPER HUMULIN N Yes INJECT 40 [facility] 100 unit/mL 4-02 UNITS ity of injection 00:00: UNDER THE [place] [facility] 00 SKIN TWICE Medical DAILY Branch BEFORE BREAKFAST AND SUPPER HUMULIN N Yes INJECT 40 [facility] 100 unit/mL 4-02 UNITS ity of injection 00:00: UNDER THE [place] [facility] 00 SKIN TWICE Medical DAILY Branch BEFORE BREAKFAST AND SUPPER HUMULIN N Yes INJECT 40 [facility] 100 unit/mL 4-02 UNITS ity of injection 00:00: UNDER THE [place] [facility] 00 SKIN TWICE Medical DAILY Branch BEFORE BREAKFAST AND SUPPER HUMULIN N Yes INJECT 40 [facility] 100 unit/mL 4-02 UNITS ity of injection 00:00: UNDER THE [place] [facility] 00 SKIN TWICE Medical DAILY Branch BEFORE BREAKFAST AND SUPPER HUMULIN N Yes INJECT 40 [facility] 100 unit/mL 4-02 UNITS ity of injection 00:00: UNDER THE [place] [facility] 00 SKIN TWICE Medical DAILY Branch BEFORE BREAKFAST AND SUPPER diphenhydrA 2016-07 Yes 25mg Take 1 Univ ers MINE 2-02 tablet by ity of (BENADRYL 00:00: mouth [place] ALLERGY) 25 00 every 4 Medic al mg tablet (four) Branch hours as needed for Allergies. diphenhydrA 2016-07 Yes 25mg Take 1 [facility] ers MINE 2-02 tablet by ity of (BENADRYL 00:00: mouth [place] ALLERGY) 25 00 every 4 Medic al mg tablet (four) Branch hours as needed for Allergies. diphenhydrA 2016-07 Yes 25mg Take 1 [facility] ers MINE 2-02 tablet by ity of (BENADRYL 00:00: mouth [place] ALLERGY) 25 00 every 4 Medic al mg tablet (four) Branch hours as needed for Allergies. diphenhydrA 2016-07 Yes 25mg Take 1 [facility] MINE 2-02 tablet by ity of (BENADRYL 00:00: mouth [place] ALLERGY) 25 00 every 4 Medic al mg tablet (four) Branch hours as needed for Allergies. diphenhydrA 2016-07 Yes 25mg Take 1 [facility] MINE 2-02 tablet by ity of (BENADRYL 00:00: mouth [place] ALLERGY) 25 00 every 4 Medic al mg tablet (four) Branch hours as needed for Allergies. diphenhydrA 2016-07 Yes 25mg Take 1 [facility] MINE 2-02 tablet by ity of (BENADRYL 00:00: mouth [place] ALLERGY) 25 00 every 4 Medic al mg tablet (four) Branch hours as needed for Allergies. diphenhydrA 2016-07 Yes 25mg Take 1 [facility] MINE 2-02 tablet by ity of (BENADRYL 00:00: mouth [place] ALLERGY) 25 00 every 4 Medic al mg tablet (four) Branch hours as needed for Allergies. diphenhydrA 2016-07 Yes 25mg Take 1 [facility] MINE 2-02 tablet by ity of (BENADRYL 00:00: mouth [place] ALLERGY) 25 00 every 4 Medic al mg tablet (four) Branch hours as needed for Allergies. diphenhydrA 2016-07 Yes 25mg Take 1 [facility] MINE 2-02 tablet by ity of (BENADRYL 00:00: mouth [place] ALLERGY) 25 00 every 4 Medic al mg tablet (four) Branch hours as needed for Allergies. diphenhydrA 2016-07 Yes 25mg Take 1 [facility] MINE 2-02 tablet by ity of (BENADRYL 00:00: mouth [place] ALLERGY) 25 00 every 4 Medic al mg tablet (four) Branch hours as needed for Allergies. diphenhydrA 2016-07 Yes 25mg Take 1 [facility] MINE 2-02 tablet by ity of (BENADRYL 00:00: mouth [place] ALLERGY) 25 00 every 4 Medic al mg tablet (four) Branch hours as needed for Allergies. diphenhydrA 2016-07 Yes 25mg Take 1 [facility] MINE 2-02 tablet by ity of (BENADRYL 00:00: mouth [place] ALLERGY) 25 00 every 4 Medic al mg tablet (four) Branch hours as needed for Allergies. diphenhydrA 2016-07 Yes 25mg Take 1 [facility] MINE 2-02 tablet by ity of (BENADRYL 00:00: mouth [place] ALLERGY) 25 00 every 4 Medic al mg tablet (four) Branch hours as needed for Allergies. diphenhydrA 2016-07 Yes 25mg Take 1 [facility] MINE 2-02 tablet by ity of (BENADRYL 00:00: mouth [place] ALLERGY) 25 00 every 4 Medic al mg tablet (four) Branch hours as needed for Allergies. diphenhydrA 2016-07 Yes 25mg Take 1 [facility] MINE 2-02 tablet by ity of (BENADRYL 00:00: mouth [place] ALLERGY) 25 00 every 4 Medic al mg tablet (four) Branch hours as needed for Allergies. diphenhydrA 2016-07 Yes 25mg Take 1 [facility] MINE 2-02 tablet by ity of (BENADRYL 00:00: mouth [place] ALLERGY) 25 00 every 4 Medic al mg tablet (four) Branch hours as needed for Allergies. diphenhydrA 2016-07 Yes 25mg Take 1 [facility] MINE 2-02 tablet by ity of (BENADRYL 00:00: mouth [place] ALLERGY) 25 00 every 4 Medic al mg tablet (four) Branch hours as needed for Allergies. diphenhydrA 2016-07 Yes 25mg Take 1 [facility] MINE 2-02 tablet by ity of (BENADRYL 00:00: mouth [place] ALLERGY) 25 00 every 4 Medic al mg tablet (four) Branch hours as needed for Allergies. diphenhydrA 2016-07 Yes 25mg Take 1 [facility] MINE 2-02 tablet by ity of (BENADRYL 00:00: mouth [place] ALLERGY) 25 00 every 4 Medic al mg tablet (four) Branch hours as needed for Allergies. diphenhydrA 2016-07 Yes 25mg Take 1 [facility] MINE 2-02 tablet by ity of (BENADRYL 00:00: mouth [place] ALLERGY) 25 00 every 4 Medic al mg tablet (four) Branch hours as needed for Allergies. diphenhydrA 2016-07 Yes 25mg Take 1 [facility] MINE 2-02 tablet by ity of (BENADRYL 00:00: mouth [place] ALLERGY) 25 00 every 4 Medic al mg tablet (four) Branch hours as needed for Allergies. diphenhydrA 2016-07 Yes 25mg Take 1 [facility] MINE 2-02 tablet by ity of (BENADRYL 00:00: mouth [place] ALLERGY) 25 00 every 4 Medic al mg tablet (four) Branch hours as needed for Allergies. diphenhydrA 2016-07 Yes 25mg Take 1 [facility] ers MINE 2-02 tablet by ity of (BENADRYL 00:00: mouth [place] ALLERGY) 25 00 every 4 Medic al mg tablet (four) Branch hours as needed for Allergies. diphenhydrA 2016-07 Yes 25mg Take 1 [facility] ers MINE 2-02 tablet by ity of (BENADRYL 00:00: mouth [place] ALLERGY) 25 00 every 4 Medic al mg tablet (four) Branch hours as needed for Allergies. blood sugar Yes [id number] [facility] to [facility] diagnostic 6-27 test blood ity of (ACCU-CHEK 00:00: sugars [place] SMARTVIEW 00 TID, DX Medical TEST STRIP) 250.91 Branch strip blood sugar Yes [id number] Use to [facility] diagnostic 6-27 test blood ity of (ACCU-CHEK 00:00: sugars [place] SMARTVIEW 00 TID, DX Medical TEST STRIP) 250.91 Branch strip blood sugar Yes [id number] Use to [facility] diagnostic 6-27 test blood ity of (ACCU-CHEK 00:00: sugars [place] SMARTVIEW 00 TID, DX Medical TEST STRIP) 250.91 Branch strip blood sugar Yes [id number] Use to [facility] diagnostic 6-27 test blood ity of (ACCU-CHEK 00:00: sugars [place] SMARTVIEW 00 TID, DX Medical TEST STRIP) 250.91 Branch strip blood sugar Yes [id number] Use to [facility] diagnostic 6-27 test blood ity of (ACCU-CHEK 00:00: sugars [place] SMARTVIEW 00 TID, DX Medical TEST STRIP) 250.91 Branch strip blood sugar Yes [id number] Use to [facility] diagnostic 6-27 test blood ity of (ACCU-CHEK 00:00: sugars [place] SMARTVIEW 00 TID, DX Medical TEST STRIP) 250.91 Branch strip blood sugar 2017-0 Yes [id number] Use to [facility] diagnostic 6-27 test blood ity of (ACCU-CHEK 00:00: sugars [place] SMARTVIEW 00 TID, DX Medical TEST STRIP) 250.91 Branch strip blood sugar Yes [id number] Use to [facility] diagnostic 6-27 test blood ity of (ACCU-CHEK 00:00: sugars [place] SMARTVIEW 00 TID, DX Medical TEST STRIP) 250.91 Branch strip blood sugar Yes [id number] Use to [facility] diagnostic 6-27 test blood ity of (ACCU-CHEK 00:00: sugars [place] SMARTVIEW 00 TID, DX Medical TEST STRIP) 250.91 Branch strip blood sugar Yes [id number] Use to [facility] diagnostic 6-27 test blood ity of (ACCU-CHEK 00:00: sugars [place] SMARTVIEW 00 TID, DX Medical TEST STRIP) 250.91 Branch strip blood sugar Yes [id number] Use to [facility] diagnostic 6-27 test blood ity of (ACCU-CHEK 00:00: sugars [place] SMARTVIEW 00 TID, DX Medical TEST STRIP) 250.91 Branch strip blood sugar Yes [id number] Use to [facility] diagnostic 6-27 test blood ity of (ACCU-CHEK 00:00: sugars [place] SMARTVIEW 00 TID, DX Medical TEST STRIP) 250.91 Branch strip blood sugar Yes [id number] Use to [facility] diagnostic 6-27 test blood ity of (ACCU-CHEK 00:00: sugars [place] SMARTVIEW 00 TID, DX Medical TEST STRIP) 250.91 Branch strip blood sugar Yes [id number] Use to [facility] diagnostic 6-27 test blood ity of (ACCU-CHEK 00:00: sugars [place] SMARTVIEW 00 TID, DX Medical TEST STRIP) 250.91 Branch strip blood sugar Yes [id number] Use to [facility] diagnostic 6-27 test blood ity of (ACCU-CHEK 00:00: sugars [place] SMARTVIEW 00 TID, DX Medical TEST STRIP) 250.91 Branch strip blood sugar Yes [id number] Use to [facility] diagnostic 6-27 test blood ity of (ACCU-CHEK 00:00: sugars [place] SMARTVIEW 00 TID, DX Medical TEST STRIP) 250.91 Branch strip blood sugar 2017-0 Yes [id number] Use to [facility] diagnostic 6-27 test blood ity of (ACCU-CHEK 00:00: sugars [place] SMARTVIEW 00 TID, DX Medical TEST STRIP) 250.91 Branch strip blood sugar Yes [id number] Use to [facility] diagnostic 6-27 test blood ity of (ACCU-CHEK 00:00: sugars [place] SMARTVIEW 00 TID, DX Medical TEST STRIP) 250.91 Branch strip blood sugar Yes [id number] Use to [facility] diagnostic 6-27 test blood ity of (ACCU-CHEK 00:00: sugars [place] SMARTVIEW 00 TID, DX Medical TEST STRIP) 250.91 Branch strip blood sugar Yes [id number] Use to [facility] diagnostic 6-27 test blood ity of (ACCU-CHEK 00:00: sugars [place] SMARTVIEW 00 TID, DX Medical TEST STRIP) 250.91 Branch strip blood sugar Yes [id number] Use to [facility] diagnostic 6-27 test blood ity of (ACCU-CHEK 00:00: sugars [place] SMARTVIEW 00 TID, DX Medical TEST STRIP) 250.91 Branch strip blood sugar Yes [id number] Use to [facility] diagnostic 6-27 test blood ity of (ACCU-CHEK 00:00: sugars [place] SMARTVIEW 00 TID, DX Medical TEST STRIP) 250.91 Branch strip blood sugar Yes [id number] Use to [facility] diagnostic 6-27 test blood ity of (ACCU-CHEK 00:00: sugars [place] SMARTVIEW 00 TID, DX Medical TEST STRIP) 250.91 Branch strip blood sugar Yes [id number] Use to [facility] diagnostic 6-27 test blood ity of (ACCU-CHEK 00:00: sugars [place] SMARTVIEW 00 TID, DX Medical TEST STRIP) 250.91 Branch strip HYDROcodone Yes 1{tbl} Take 1 [facility] -acetaminop 1-27 tablet by ity of hen 7.5-325 00:00: mouth [place] mg per 00 every 6 Medical tablet (six) Branch hours as needed for Pain. HYDROcodone Yes 1{tbl} Take 1 [facility] -acetaminop 1-27 tablet by ity of hen 7.5-325 00:00: mouth [place] mg per 00 every 6 Medical tablet (six) Branch hours as needed for Pain. HYDROcodone Yes 1{tbl} Take 1 [facility] -acetaminop 1-27 tablet by ity of hen 7.5-325 00:00: mouth [place] mg per 00 every 6 Medical tablet (six) Branch hours as needed for Pain. HYDROcodone Yes 1{tbl} Take 1 [facility] -acetaminop 1-27 tablet by ity of hen 7.5-325 00:00: mouth [place] mg per 00 every 6 Medical tablet (six) Branch hours as needed for Pain. HYDROcodone Yes 1{tbl} Take 1 [facility] -acetaminop 1-27 tablet by ity of hen 7.5-325 00:00: mouth [place] mg per 00 every 6 Medical tablet (six) Branch hours as needed for Pain. HYDROcodone Yes 1{tbl} Take 1 [facility] -acetaminop 1-27 tablet by ity of hen 7.5-325 00:00: mouth [place] mg per 00 every 6 Medical tablet (six) Branch hours as needed for Pain. HYDROcodone Yes 1{tbl} Take 1 [facility] -acetaminop 1-27 tablet by ity of hen 7.5-325 00:00: mouth [place] mg per 00 every 6 Medical tablet (six) Branch hours as needed for Pain. HYDROcodone Yes 1{tbl} Take 1 [facility] -acetaminop 1-27 tablet by ity of hen 7.5-325 00:00: mouth [place] mg per 00 every 6 Medical tablet (six) Branch hours as needed for Pain. HYDROcodone 2021- No 1{tbl} Take 1 [facility] n[facility] -acetaminop 1-27 10-25 tablet by it y of hen 7.5-325 00:00: 00:00 [place] mg per 00 :00 every 6 Medical tablet (six) Branch hours as needed for Pain. HYDROcodone 2021- No 1{tbl} Take 1 [facility] n[facility] -acetaminop 1-27 10-25 tablet by it y of hen 7.5-325 00:00: 00:00 [place] mg per 00 :00 every 6 Medical tablet (six) Branch hours as needed for Pain. insulin Yes [id number] [facility] regular 8-23 patients ity of human 00:00: sliding [place] (HUMULIN R) 00 scale, max Me dical 100 unit/mL dose per Bran ch injection day is 60 units. insulin Yes [id number] Per [facility] regular 03-22 patients ity of human 00:00: sliding [place] (HUMULIN R) 00 scale, max Me dical 100 unit/mL dose per Bran ch injection day is 60 units. insulin Yes [id number] Per [facility] 03-22 patients ity of human 00:00: sliding [place] (HUMULIN R) 00 scale, max Me dical 100 unit/mL dose per Bran ch injection day is 60 units. insulin Yes [id number] Per [facility] 03-22 patients ity of human 00:00: sliding [place] (HUMULIN R) 00 scale, max Me dical 100 unit/mL dose per Bran ch injection day is 60 units. insulin Yes [id number] Per [facility] 03-22 patients ity of human 00:00: sliding [place] (HUMULIN R) 00 scale, max Me dical 100 unit/mL dose per Bran ch injection day is 60 units. insulin Yes [id number] Per [facility] 03-22 patients ity of human 00:00: sliding [place] (HUMULIN R) 00 scale, max Me dical 100 unit/mL dose per Bran ch injection day is 60 units. insulin Yes [id number] Per [facility] 03-22 patients ity of human 00:00: sliding [place] (HUMULIN R) 00 scale, max Me dical 100 unit/mL dose per Bran ch injection day is 60 units. insulin Yes [id number] Per [facility] 03-22 patients ity of human 00:00: sliding [place] (HUMULIN R) 00 scale, max Me dical 100 unit/mL dose per Bran ch injection day is 60 units. insulin Yes [id number] Per [facility] 03-22 patients ity of human 00:00: sliding [place] (HUMULIN R) 00 scale, max Me dical 100 unit/mL dose per Bran ch injection day is 60 units. insulin Yes [id number] Per [facility] 03-22 patients ity of human 00:00: sliding [place] (HUMULIN R) 00 scale, max Me dical 100 unit/mL dose per Bran ch injection day is 60 units. insulin Yes [id number] Per [facility] 03-22 patients ity of human 00:00: sliding [place] (HUMULIN R) 00 scale, max Me dical 100 unit/mL dose per Bran ch injection day is 60 units. insulin Yes [id number] Per [facility] 03-22 patients ity of human 00:00: sliding [place] (HUMULIN R) 00 scale, max Me dical 100 unit/mL dose per Bran ch injection day is 60 units. insulin Yes [id number] Per [facility] 03-22 patients ity of human 00:00: sliding [place] (HUMULIN R) 00 scale, max Me dical 100 unit/mL dose per Bran ch injection day is 60 units. insulin Yes [id number] Per [facility] 03-22 patients ity of human 00:00: sliding [place] (HUMULIN R) 00 scale, max Me dical 100 unit/mL dose per Bran ch injection day is 60 units. insulin Yes [id number] Per [facility] 03-22 patients ity of human 00:00: sliding [place] (HUMULIN R) 00 scale, max Me dical 100 unit/mL dose per Bran ch injection day is 60 units. insulin Yes [id number] Per [facility] 03-22 patients ity of human 00:00: sliding [place] (HUMULIN R) 00 scale, max Me dical 100 unit/mL dose per Bran ch injection day is 60 units. insulin Yes [id number] Per [facility] 03-22 patients ity of human 00:00: sliding [place] (HUMULIN R) 00 scale, max Me dical 100 unit/mL dose per Bran ch injection day is 60 units. insulin Yes [id number] Per [facility] 03-22 patients ity of human 00:00: sliding [place] (HUMULIN R) 00 scale, max Me dical 100 unit/mL dose per Bran ch injection day is 60 units. insulin 0 Yes [id number] Per [facility] 03-22 patients ity of human 00:00: sliding [place] (HUMULIN R) 00 scale, max Me dical 100 unit/mL dose per Bran ch injection day is 60 units. insulin Yes [id number] [facility] regular 03-22 patients ity of human 00:00: sliding [place] (HUMULIN R) 00 scale, max Me dical 100 unit/mL dose per Bran ch injection day is 60 units. insulin Yes [id number] Per [facility] regular - patients ity of human 00:00: sliding [place] (HUMULIN R) 00 scale, max Me dical 100 unit/mL dose per Bran ch injection day is 60 units. insulin 2022- No [id number] Per [facility] regular 03-22- patients ity of human 00:00: 00:00 sliding [place] (HUMULIN R) 00 :00 scale, max Me dical 100 unit/mL dose per Bran ch injection day is 60 units. atorvastati Yes 20mg Take 1 [facility] ([facility] 7-15 tablet by [facility]y of 20 mg 00:00: mouth at [place] tablet 00 bedtime. [facility] atorvastati Yes 20mg Take 1 [facility] (LIPITOR) 7-15 tablet by ity of 20 mg 00:00: mouth at [place] tablet 00 bedtime. [facility] atorvastati Yes 20mg Take 1 [facility] (LIP[facility]OR) 7-15 tablet by ity of 20 mg 00:00: mouth at [place] tablet 00 bedtime. [facility] atorvastati Yes 20mg Take 1 [facility] (LIPITOR) 7-15 tablet by ity of 20 mg 00:00: mouth at [place] tablet 00 bedtime. [facility] atorvastati Yes 20mg Take 1 [facility] (LIPITOR) 7-15 tablet by ity of 20 mg 00:00: mouth at [place] tablet 00 bedtime. [facility] atorvastati 0 Yes 20mg Take 1 [facility] (LIPITOR) 7-15 tablet by ity of 20 mg 00:00: mouth at [place] tablet 00 bedtime. [facility] atorvastati 0 Yes 20mg Take 1 [facility] (LIPITOR) 7-15 tablet by ity of 20 mg 00:00: mouth at [place] tablet 00 bedtime. [facility] atorvastati Yes 20mg Take 1 [facility] (LIPITOR) 7-15 tablet by ity of 20 mg 00:00: mouth at [place] tablet 00 bedtime. [facility] atorvastati 20160 Yes 20mg Take 1 [facility] (LIPITOR) 7-15 tablet by ity of 20 mg 00:00: mouth at [place] tablet 00 bedtime. [facility] atorvastati 0 Yes 20mg Take 1 [facility] (LIPITOR) 7-15 tablet by ity of 20 mg 00:00: mouth at [place] tablet 00 bedtime. [facility] atorvastati 0 Yes 20mg Take 1 [facility] (LIPITOR) 7-15 tablet by ity of 20 mg 00:00: mouth at [place] tablet 00 bedtime. [facility] atorvastati 0 Yes 20mg Take 1 [facility] (LIPITOR) 7-15 tablet by ity of 20 mg 00:00: mouth at [place] tablet 00 bedtime. [facility] atorvastati 0 Yes 20mg Take 1 [facility] (LIPITOR) 7-15 tablet by ity of 20 mg 00:00: mouth at [place] tablet 00 bedtime. [facility] atorvastati 0 Yes 20mg Take 1 [facility] (LIPITOR) 7-15 tablet by ity of 20 mg 00:00: mouth at [place] tablet 00 bedtime. [facility] atorvastati 0 Yes 20mg Take 1 [facility] (LIPITOR) 7-15 tablet by ity of 20 mg 00:00: mouth at [place] tablet 00 bedtime. [facility] atorvastati 0 Yes 20mg Take 1 [facility] (LIPITOR) 7-15 tablet by ity of 20 mg 00:00: mouth at [place] tablet 00 bedtime. [facility] atorvastati 0 Yes 20mg Take 1 [facility] (LIPITOR) 7-15 tablet by ity of 20 mg 00:00: mouth at [place] tablet 00 bedtime. [facility] atorvastati 0 Yes 20mg Take 1 [facility] (LIPITOR) 7-15 tablet by ity of 20 mg 00:00: mouth at [place] tablet 00 bedtime. [facility] atorvastati 0 Yes 20mg Take 1 [facility] (LIPITOR) 7-15 tablet by ity of 20 mg 00:00: mouth at [place] tablet 00 bedtime. [facility] atorvastati 0 Yes 20mg Take 1 [facility] (LIPITOR) 7-15 tablet by ity of 20 mg 00:00: mouth at [place] tablet 00 bedtime. [facility] atorvastati 2016-0 Yes 20mg Take 1 [facility] (LIPITOR) 7-15 tablet by ity of 20 mg 00:00: mouth at [place] tablet 00 bedtime. [facility] atorvastati 2016-0 Yes 20mg Take 1 [facility] (LIPITOR) 7-15 tablet by ity of 20 mg 00:00: mouth at [place] tablet 00 bedtime. [facility] atorvastati 2016-0 Yes 20mg Take 1 [facility] (LIPITOR) 7-15 tablet by ity of 20 mg 00:00: mouth at [place] tablet 00 bedtime. [facility] Branch atorvastati 2015-0 Yes 20mg Take 1 [facility] (LIPITOR) 7-15 tablet by ity of 20 mg 00:00: mouth at [place] tablet 00 bedtime. [facility] atorvastati 0 Yes 20mg QD Take [address] [facility] (LIP[facility]) 7-15 by mouth [facility] 20 MG 00:00: daily. Medical tablet 00 Center atorvastati 0 Yes 20mg QD Take [address] [facility] (LIPITOR) 7-15 tablet (20 [facility] 20 MG 00:00: mg total) Medical tablet 00 by mouth Center nightly. atorvastati 2015-0 Yes 20mg QD Take [address] [facility] (LIPITOR) 7-15 by mouth [facility] 20 MG 00:00: daily. Medical tablet 00 Center atorvastati 0 Yes 20mg QD Take [address] [facility] (LIPITOR) 7-15 tablet (20 [facility] 20 MG 00:00: mg total) Medical tablet 00 by mouth Center nightly. atorvastati 2016-0 Yes 20mg QD Take [address] [facility] (LIPITOR) 7-15 tablet (20 [facility] 20 MG 00:00: mg total) Medical tablet 00 by mouth Center nightly. atorvastati 2016-0 Yes 20mg QD Take [address] [facility] (LIPITOR) 7-15 tablet (20 [facility] 20 MG 00:00: mg total) Medical tablet 00 by mouth Center nightly. atorvastati 2016-0 Yes 20mg QD Take [address] [facility] (LIPITOR) 7-15 tablet (20 [facility] 20 MG 00:00: mg total) Medical tablet 00 by mouth Center nightly. atorvastati 2016-0 Yes 20mg QD Take [address] [facility] (LIPITOR) 7-15 tablet (20 [facility] 20 MG 00:00: mg total) Medical tablet 00 by mouth Center nightly. atorvastati 2016-0 Yes 20mg QD Take [address] [facility] (LIPITOR) 7-15 tablet (20 [facility] 20 MG 00:00: mg total) Medical tablet 00 by mouth Center nightly. atorvastati 2016-0 Yes 20mg QD Take [address] [facility] (LIPITOR) 7-15 tablet (20 [facility] 20 MG 00:00: mg total) Medical tablet 00 by mouth Center nightly. atorvastati 2016-0 Yes 20mg QD Take [address] [facility] (LIPITOR) 7-15 tablet (20 [facility] 20 MG 00:00: mg total) Medical tablet 00 by mouth Center nightly. atorvastati 2016-0 Yes 20mg QD Take [address] [facility] (LIPITOR) 7-15 tablet (20 [facility] 20 MG 00:00: mg total) Medical tablet 00 by mouth Center nightly. atorvastati 2016-0 Yes 20mg QD Take [address] [facility] (LIPITOR) 7-15 tablet (20 [facility] 20 MG 00:00: mg total) Medical tablet 00 by mouth Center nightly. atorvastati 2016-0 Yes 20mg QD Take [address] [facility] (LIPITOR) 7-15 tablet (20 [facility] 20 MG 00:00: mg total) Medical tablet 00 by mouth Center nightly. atorvastati 2016-0 Yes 20mg QD Take [address] [facility] (LIPITOR) 7-15 tablet (20 [facility] 20 MG 00:00: mg total) Medical tablet 00 by mouth Center nightly. atorvastati 2016-0 Yes 20mg QD Take [address] [facility] (LIPITOR) 7-15 tablet (20 [facility] 20 MG 00:00: mg total) Medical tablet 00 by mouth Center nightly. atorvastati 2016-0 Yes 20mg QD Take [address] [facility] (LIPITOR) 7-15 tablet (20 [facility] 20 MG 00:00: mg total) Medical tablet 00 by mouth Center nightly. atorvastati 2016-0 Yes 20mg QD Take [address] [facility] (LIPITOR) 7-15 by mouth [facility] 20 MG 00:00: daily. Medical tablet 00 Center atorvastati 2016-0 Yes 20mg QD Take [address] [facility] (LIPITOR) 7-15 tablet (20 [facility] 20 MG 00:00: mg total) Medical tablet 00 by mouth Center nightly. atorvastati 2016-0 Yes 20mg QD Take [address] [facility] (LIPITOR) 7-15 tablet (20 [facility] 20 MG 00:00: mg total) Medical tablet 00 by mouth Center nightly. atorvastati 2016-0 Yes 20mg QD Take [address] [facility] (LIPITOR) 7-15 tablet (20 [facility] 20 MG 00:00: mg total) Medical tablet 00 by mouth Center nightly. atorvastati 2016-0 Yes 20mg QD Take [address] [facility] (LIPITOR) 7-15 tablet (20 [facility] 20 MG 00:00: mg total) Medical tablet 00 by mouth Center nightly. atorvastati 2016-0 Yes 20mg QD Take [address] [facility] (LIPITOR) 7-15 tablet (20 [facility] 20 MG 00:00: mg total) Medical tablet 00 by mouth Center nightly. atorvastati 2016-0 Yes 20mg QD Take [address] [facility] (LIPITOR) 7-15 tablet (20 [facility] 20 MG 00:00: mg total) Medical tablet 00 by mouth Center nightly. atorvastati 2016-0 Yes 20mg QD Take [address] [facility] (LIPITOR) 7-15 tablet (20 [facility] 20 MG 00:00: mg total) Medical tablet 00 by mouth Center nightly. atorvastati 2016-0 Yes 20mg QD Take [address] [facility] (LIPITOR) 7-15 tablet (20 [facility] 20 MG 00:00: mg total) Medical tablet 00 by mouth Center nightly. atorvastati 2016-0 Yes 20mg QD Take [address] [facility] (LIPITOR) 7-15 by mouth [facility] 20 MG 00:00: daily. Medical tablet 00 Center atorvastati 2016-0 Yes 20mg QD Take [address] [facility] (LIPITOR) 7-15 tablet (20 [facility] 20 MG 00:00: mg total) Medical tablet 00 by mouth Center nightly. atorvastati 2016-0 Yes 20mg QD Take [address] [facility] (LIPITOR) 7-15 by mouth [facility] 20 MG 00:00: daily. Medical tablet 00 [place] atorvastati 2016-0 Yes 20mg QD Take [address] [facility] (LIPITOR) 7-15 tablet (20 Eva k[facility] 20 MG 00:00: mg total) Medical tablet 00 by mouth Center nightly. atorvastati 2016-0 Yes 20mg QD Take [address] [facility] (LIPITOR) 7-15 by mouth [facility] 20 MG 00:00: daily. Medical tablet 00 [place] atorvastati 2015-0 Yes 20mg QD Take [address] [facility] (LIPITOR) 7-15 tablet (20 [facility] 20 MG 00:00: mg total) Medical tablet 00 by mouth Center nightly. atorvastati 2015-0 Yes 20mg QD Take [address] [facility] (LIPITOR) 7-15 by mouth [facility] 20 MG 00:00: daily. Medical tablet 00 [place] atorvastati 0 Yes 20mg QD Take [address] [facility] (LIPITOR) 7-15 tablet (20 [facility] 20 MG 00:00: mg total) Medical tablet 00 by mouth Center nightly. atorvastati 0 Yes 20mg QD Take [address] [facility] (LIPITOR) 7-15 by mouth [facility] 20 MG 00:00: daily. Medical tablet 00 [place] atorvastati 0 Yes 20mg QD Take [address] [facility] (LIPITOR) 7-15 tablet (20 [facility] 20 MG 00:00: mg total) Medical tablet 00 by mouth Center nightly. atorvastati 2016-0 Yes 20mg QD Take [address] [facility] (LIPITOR) 7-15 by mouth [facility] 20 MG 00:00: daily. Medical tablet 00 [place] atorvastati 0 Yes 20mg QD Take [address] [facility] (LIPITOR) 7-15 tablet (20 [facility] 20 MG 00:00: mg total) Medical tablet 00 by mouth Center nightly. atorvastati 2016-0 Yes 20mg QD Take [address] [facility] (LIPITOR) 7-15 by mouth [facility] 20 MG 00:00: daily. Medical tablet [address] [place] [address] atorvastati 0 Yes 20mg QD Take [address] [facility] (LIPITOR) 7-15 by mouth [facility] 20 MG 00:00: daily. Medical tablet 00 Center atorvastati 2016-0 Yes 20mg QD Take [address] [facility] (LIPITOR) 7-15 tablet (20 [facility] 20 MG 00:00: mg total) Medical tablet 00 by mouth Center nightly. atorvastati 2016-0 Yes 20mg QD Take [address] [facility] (LIPITOR) 7-15 by mouth [facility] 20 MG 00:00: daily. Medical tablet 00 [place] atorvastati 0 Yes 20mg QD Take [address] [facility] (LIPITOR) 7-15 tablet (20 [facility] 20 MG 00:00: mg total) Medical tablet 00 by mouth Center nightly. atorvastati 0 Yes 20mg QD Take [address] [facility] (LIPITOR) 7-15 by mouth [facility] 20 MG 00:00: daily. Medical tablet 00 [place] atorvastati 0 Yes 20mg QD Take [address] [facility] (LIPITOR) 7-15 tablet (20 [facility] 20 MG 00:00: mg total) Medical tablet 00 by mouth Center nightly. atorvastati 0 Yes 20mg QD Take [address] [facility] (LIPITOR) 7-15 by mouth [facility] 20 MG 00:00: daily. Medical tablet 00 [place] atorvastati 0 Yes 20mg QD Take [address] [facility] (LIPITOR) 7-15 by mouth [facility] 20 MG 00:00: daily. Medical tablet 00 [place] atorvastati 0 Yes 20mg QD Take [address] [facility] (LIPITOR) 7-15 tablet (20 [facility] 20 MG 00:00: mg total) Medical tablet 00 by mouth Center nightly. insulin Yes [id number] Use 5 [facility] rs syringe-nee 7-11 times ity of dle U-100 1 00:00: daily with [place] ml (INSULIN 00 insulin Medic al SYRINGE) 1 Branch mL 29 gauge x 1/2" Syrg Blood Yes Use as [facility] Pressure 7-11 directed ity of Monitor 00:00: [place] (BLOOD 00 Medical PRESSURE Branch KIT) Kit insulin Yes [id number] Use 5 Unive rs syringe-nee 7-11 times ity of dle U-100 1 00:00: daily with [place] ml (INSULIN 00 insulin Medic al SYRINGE) 1 Branch mL 29 gauge x 1/2" Syrg Blood Yes Use as [facility] Pressure 7-11 directed ity of Monitor 00:00: [place] (BLOOD 00 Medical PRESSURE Branch KIT) Kit insulin 2015-0 Yes [id number] Use 5 Unive rs syringe-nee 7-11 times ity of dle U-100 1 00:00: daily with [place] ml (INSULIN 00 insulin Medic al SYRINGE) 1 Branch mL 29 gauge x 1/2" Syrg Blood Yes Use as [facility] Pressure 7-11 directed ity of Monitor 00:00: [place] (BLOOD 00 Medical PRESSURE Branch KIT) Kit insulin 2015-0 Yes [id number] Use 5 Unive rs syringe-nee 7-11 times ity of dle U-100 1 00:00: daily with [place] ml (INSULIN 00 insulin Medic al SYRINGE) 1 Branch mL 29 gauge x 1/2" Syrg Blood Yes Use as [facility] Pressure 7-11 directed ity of Monitor 00:00: [place] (BLOOD 00 Medical PRESSURE Branch KIT) Kit insulin 2015-0 Yes [id number] Use 5 Unive rs syringe-nee 7-11 times ity of dle U-100 1 00:00: daily with [place] ml (INSULIN 00 insulin Medic al SYRINGE) 1 Branch mL 29 gauge x 1/2" Syrg Blood Yes Use as [facility] Pressure 7-11 directed ity of Monitor 00:00: [place] (BLOOD 00 Medical PRESSURE Branch KIT) Kit insulin 2015-0 Yes [id number] Use 5 Unive rs syringe-nee 7-11 times ity of dle U-100 1 00:00: daily with [place] ml (INSULIN 00 insulin Medic al SYRINGE) 1 Branch mL 29 gauge x 1/2" Syrg Blood Yes Use as [facility] Pressure 7-11 directed ity of Monitor 00:00: [place] (BLOOD 00 Medical PRESSURE Branch KIT) Kit insulin 2015-0 Yes [id number] Use 5 Unive rs syringe-nee 7-11 times ity of dle U-100 1 00:00: daily with [place] ml (INSULIN 00 insulin Medic al SYRINGE) 1 Branch mL 29 gauge x 1/2" Syrg Blood 0 Yes Use as [facility] Pressure 7-11 directed ity of Monitor 00:00: [place] (BLOOD 00 Medical PRESSURE Branch KIT) Kit insulin 2015-0 Yes [id number] Use 5 Unive rs syringe-nee 7-11 times ity of dle U-100 1 00:00: daily with [place] ml (INSULIN 00 insulin Medic al SYRINGE) 1 Branch mL 29 gauge x 1/2" Syrg Blood Yes Use as [facility] Pressure 7-11 directed ity of Monitor 00:00: [place] (BLOOD 00 Medical PRESSURE Branch KIT) Kit insulin 2015-0 Yes [id number] Use 5 Unive rs syringe-nee 7-11 times ity of dle U-100 1 00:00: daily with [place] ml (INSULIN 00 insulin Medic al SYRINGE) 1 Branch mL 29 gauge x 1/2" Syrg Blood 0 Yes Use as [facility] Pressure 7-11 directed ity of Monitor 00:00: [place] (BLOOD 00 Medical PRESSURE Branch KIT) Kit insulin 2015-0 Yes [id number] Use 5 Unive rs syringe-nee 7-11 times ity of dle U-100 1 00:00: daily with [place] ml (INSULIN 00 insulin Medic al SYRINGE) 1 Branch mL 29 gauge x 1/2" Syrg Blood Yes Use as [facility] Pressure 7-11 directed ity of Monitor 00:00: [place] (BLOOD 00 Medical PRESSURE Branch KIT) Kit insulin 2015-0 Yes [id number] Use 5 Unive rs syringe-nee 7-11 times ity of dle U-100 1 00:00: daily with [place] ml (INSULIN 00 insulin Medic al SYRINGE) 1 Branch mL 29 gauge x 1/2" Syrg Blood 0 Yes Use as [facility] Pressure 7-11 directed ity of Monitor 00:00: [place] (BLOOD 00 Medical PRESSURE Branch KIT) Kit insulin 2015-0 Yes [id number] Use 5 Unive rs syringe-nee 7-11 times ity of dle U-100 1 00:00: daily with [place] ml (INSULIN 00 insulin Medic al SYRINGE) 1 Branch mL 29 gauge x 1/2" Syrg Blood 0 Yes Use as [facility] Pressure 7-11 directed ity of Monitor 00:00: [place] (BLOOD 00 Medical PRESSURE Branch KIT) Kit insulin 2015-0 Yes [id number] Use 5 Unive rs syringe-nee 7-11 times ity of dle U-100 1 00:00: daily with [place] ml (INSULIN 00 insulin Medic al SYRINGE) 1 Branch mL 29 gauge x 1/2" Syrg Blood Yes Use as [facility] Pressure 7-11 directed ity of Monitor 00:00: [place] (BLOOD 00 Medical PRESSURE Branch KIT) Kit insulin 2015-0 Yes [id number] Use 5 Unive rs syringe-nee 7-11 times ity of dle U-100 1 00:00: daily with [place] ml (INSULIN 00 insulin Medic al SYRINGE) 1 Branch mL 29 gauge x 1/2" Syrg Blood Yes Use as [facility] Pressure 7-11 directed ity of Monitor 00:00: [place] (BLOOD 00 Medical PRESSURE Branch KIT) Kit insulin 2015-0 Yes [id number] Use 5 Unive rs syringe-nee 7-11 times ity of dle U-100 1 00:00: daily with [place] ml (INSULIN 00 insulin Medic al SYRINGE) 1 Branch mL 29 gauge x 1/2" Syrg Blood Yes Use as [facility] Pressure 7-11 directed ity of Monitor 00:00: [place] (BLOOD 00 Medical PRESSURE Branch KIT) Kit insulin 0 Yes [id number] Use 5 Unive rs syringe-nee 7-11 times ity of dle U-100 1 00:00: daily with [place] ml (INSULIN 00 insulin Medic al SYRINGE) 1 Branch mL 29 gauge x 1/2" Syrg Blood Yes Use as [facility] Pressure 7-11 directed ity of Monitor 00:00: [place] (BLOOD 00 Medical PRESSURE Branch KIT) Kit insulin 2015-0 Yes [id number] Use 5 Unive rs syringe-nee 7-11 times ity of dle U-100 1 00:00: daily with [place] ml (INSULIN 00 insulin Medic al SYRINGE) 1 Branch mL 29 gauge x 1/2" Syrg Blood Yes Use as [facility] Pressure 7-11 directed ity of Monitor 00:00: [place] (BLOOD 00 Medical PRESSURE Branch KIT) Kit insulin 2015-0 Yes [id number] Use 5 Unive rs syringe-nee 7-11 times ity of dle U-100 1 00:00: daily with [place] ml (INSULIN 00 insulin Medic al SYRINGE) 1 Branch mL 29 gauge x 1/2" Syrg Blood 0 Yes Use as [facility] Pressure 7-11 directed ity of Monitor 00:00: [place] (BLOOD 00 Medical PRESSURE Branch KIT) Kit insulin 2015-0 Yes [id number] Use 5 Unive rs syringe-nee 7-11 times ity of dle U-100 1 00:00: daily with [place] ml (INSULIN 00 insulin Medic al SYRINGE) 1 Branch mL 29 gauge x 1/2" Syrg Blood 2015- Yes Use as [facility] Pressure 7-11 directed ity of Monitor 00:00: [place] (BLOOD 00 Medical PRESSURE Branch KIT) Kit insulin 2015-0 Yes [id number] Use 5 Unive rs syringe-nee 7-11 times ity of dle U-100 1 00:00: daily with [place] ml (INSULIN 00 insulin Medic al SYRINGE) 1 Branch mL 29 gauge x 1/2" Syrg Blood Yes Use as [facility] Pressure 7-11 directed ity of Monitor 00:00: [place] (BLOOD 00 Medical PRESSURE Branch KIT) Kit insulin 0 Yes [id number] Use 5 Unive rs syringe-nee 7-11 times ity of dle U-100 1 00:00: daily with [place] ml (INSULIN 00 insulin Medic al SYRINGE) 1 Branch mL 29 gauge x 1/2" Syrg Blood Yes Use as [facility] Pressure 7-11 directed ity of Monitor 00:00: [place] (BLOOD 00 Medical PRESSURE Branch KIT) Kit insulin 2015-0 Yes [id number] Use 5 Unive rs syringe-nee 7-11 times ity of dle U-100 1 00:00: daily with [place] ml (INSULIN 00 insulin Medic al SYRINGE) 1 Branch mL 29 gauge x 1/2" Syrg Blood Yes Use as [facility] Pressure 7-11 directed ity of Monitor 00:00: [place] (BLOOD 00 Medical PRESSURE Branch KIT) Kit insulin 2015-0 Yes [id number] Use 5 Unive rs syringe-nee 7-11 times ity of dle U-100 1 00:00: daily with [place] ml (INSULIN 00 insulin Medic al SYRINGE) 1 Branch mL 29 gauge x 1/2" Syrg Blood Yes Use as [facility] Pressure 7-11 directed ity of Monitor 00:00: [place] (BLOOD 00 Medical PRESSURE Branch KIT) Kit insulin 2015-0 Yes [id number] Use 5 Unive rs syringe-nee 7-11 times ity of dle U-100 1 00:00: daily with [place] ml (INSULIN 00 insulin Medic al SYRINGE) 1 Branch mL 29 gauge x 1/2" Syrg Blood Yes Use as [facility] Pressure 7-11 directed ity of Monitor 00:00: [place] (BLOOD 00 Medical PRESSURE Branch KIT) Kit THINPRO 2015-0 Yes USE 1 Univers INSULIN 4-22 SYRINGE TO ity of SYRINGE 1 00:00: INJECT [place] mL 31 x 00 INSULIN 3 Medical 3/8" Syrg TIMES Branch DAILY DIRECTED (Bucky RUBI) THINPRO Yes USE 1 Univers INSULIN 4-22 SYRINGE TO ity of SYRINGE 1 00:00: INJECT [place] mL 31 x 00 INSULIN 3 Medical 3/8" Syrg TIMES Branch DAILY DIRECTED (Bucky RUBI) THINPRO Yes USE 1 Univers INSULIN 4-22 SYRINGE TO ity of SYRINGE 1 00:00: INJECT [place] mL 31 x 00 INSULIN 3 Medical 3/8" Syrg TIMES Branch DAILY DIRECTED (Bucky RUBI) THINPRO Yes USE 1 Univers INSULIN 4-22 SYRINGE TO ity of SYRINGE 1 00:00: INJECT [place] mL 31 x 00 INSULIN 3 Medical 3/8" Syrg TIMES Branch DAILY DIRECTED (Bucky RUBI) THINPRO Yes USE 1 [facility] INSULIN 4-22 SYRINGE TO ity of SYRINGE 1 00:00: INJECT [place] mL 31 x 00 INSULIN 3 Medical 3/8" Syrg TIMES Branch DAILY DIRECTED (Bucky RUBI) THINPRO Yes USE 1 [facility] INSULIN 4-22 SYRINGE TO ity of SYRINGE 1 00:00: INJECT [place] mL 31 x 00 INSULIN 3 Medical 3/8" Syrg TIMES Branch DAILY DIRECTED (Bucky RUBI) THINPRO Yes USE 1 [facility] INSULIN 4-22 SYRINGE TO ity of SYRINGE 1 00:00: INJECT [place] mL 31 x 00 INSULIN 3 Medical 3/8" Syrg TIMES Branch DAILY DIRECTED (Bucky RUBI) THINPRO Yes USE 1 Univers INSULIN 4-22 SYRINGE TO ity of SYRINGE 1 00:00: INJECT [place] mL 31 x 00 INSULIN 3 Medical 3/8" Syrg TIMES Branch DAILY DIRECTED (Bucky RUBI) THINPRO Yes USE 1 [facility] INSULIN 4-22 SYRINGE TO ity of SYRINGE 1 00:00: INJECT [place] mL 31 x 00 INSULIN 3 Medical 3/8" Syrg TIMES Branch DAILY DIRECTED (Bucky RUBI) THINPRO Yes USE 1 [facility] INSULIN 4-22 SYRINGE TO ity of SYRINGE 1 00:00: INJECT [place] mL 31 x 00 INSULIN 3 Medical 3/8" Syrg TIMES Branch DAILY DIRECTED (Bucky RUBI) THINPRO 2016-0 Yes USE 1 [facility] INSULIN 4-22 SYRINGE TO ity of SYRINGE 1 00:00: INJECT [place] mL 31 x 00 INSULIN 3 Medical 3/8" Syrg TIMES Branch DAILY DIRECTED (Bucky RUBI) THINPRO Yes USE 1 [facility] INSULIN 4-22 SYRINGE TO ity of SYRINGE 1 00:00: INJECT [place] mL 31 x 00 INSULIN 3 Medical 3/8" Syrg TIMES Branch DAILY DIRECTED (Bucky RUBI) THINPRO Yes USE 1 [facility] INSULIN 4-22 SYRING[place] TO ity of SYRINGE 1 00:00: INJECT [place] mL 31 x 00 INSULIN 3 Medical 3/8" Syrg TIMES Branch DAILY DIRECTED (Bucky RUBI) THINPRO Yes USE 1 [facility] INSULIN 4-22 SYRING[place] TO ity of SYRINGE 1 00:00: INJECT [place] mL 31 x 00 INSULIN 3 Medical 3/8" Syrg TIMES Branch DAILY DIRECTED (Bucky RUBI) THINPRO Yes USE 1 [facility] INSULIN 4-22 [place] TO ity of SYRINGE 1 00:00: INJECT [place] mL 31 x 00 INSULIN 3 Medical 3/8" Syrg TIMES Branch DAILY DIRECTED (Bucky RUBI) THINPRO Yes USE 1 [facility] INSULIN 4-22 S[place]ING[place] TO ity of SYRINGE 1 00:00: INJECT [place] mL 31 x 00 INSULIN 3 Medical 3/8" Syrg TIMES Branch DAILY DIRECTED (Bucky RUBI) THINPRO Yes USE 1 [facility] INSULIN 4-22 S[place]ING[place] TO ity of SYRINGE 1 00:00: INJECT [place] mL 31 x 00 INSULIN 3 Medical 3/8" Syrg TIMES Branch DAILY DIRECTED (Bucky RUBI) THINPRO Yes USE 1 [facility] INSULIN 4-22 SYRING[place] TO ity of SYRINGE 1 00:00: INJECT [place] mL 31 x 00 INSULIN 3 Medical 3/8" Syrg TIMES Branch DAILY DIRECTED (Bucky RUBI) THINPRO Yes USE 1 [facility] INSULIN 4-22 SYRING[place] TO ity of SYRINGE 1 00:00: INJECT [place] mL 31 x 00 INSULIN 3 Medical 3/8" Syrg TIMES Branch DAILY DIRECTED (Bucky RUBI) THINPRO Yes USE 1 [facility] INSULIN 4-22 SYRINGE TO ity of SYRINGE 1 00:00: INJECT [place] mL 31 x 00 INSULIN 3 Medical 3/8" Syrg TIMES Branch DAILY DIRECTED (Bucky RUBI) THINPRO 2016-0 Yes USE 1 [facility] INSULIN 4-22 SYRINGE TO ity of SYRINGE 1 00:00: INJECT [place] mL 31 x 00 INSULIN 3 Medical 3/8" Syrg TIMES Branch DAILY DIRECTED (Bucky RUBI) THINPRO Yes USE 1 [facility] INSULIN 4-22 SYRINGE TO ity of SYRINGE 1 00:00: INJECT [place] mL 31 x 00 INSULIN 3 Medical 3/8" Syrg TIMES Branch DAILY DIRECTED (Bucky RUBI) THINPRO Yes USE 1 [facility] INSULIN 4-22 SYRING[place] TO ity of SYRINGE 1 00:00: INJECT [place] mL 31 x 00 INSULIN 3 Medical 3/8" Syrg TIMES Branch DAILY DIRECTED (Bucky RUBI) THINPRO Yes USE 1 [facility] INSULIN 4-22 SYRINGE TO ity of SYRINGE 1 00:00: INJECT [place] mL 31 x 00 INSULIN 3 Medical 3/8" Syrg TIMES Branch DAILY DIRECTED (Bucky RUBI) Aspirin 325 2014-07 Yes 325 mg, Mem oria MG Enteric 09-08 PO, Daily, l Coated 17:40: # 50 tab, Stephen n Tablet 00 0 Refill(s) simvastatin 2014-07 Yes 20 mg = 1 M emoria 20 mg oral 09-08 tab, PO, l tablet 17:40: Bedtime, # Lo nn 00 30 tab, 0 Refill(s) pneumococca 2014-07 No Notes: Isidro elisa l capsular 09-08 (Same as: l polysacchar 17:30: Pneumovax H ermann bebo type 1 00 23) vaccine / Refrigerat pneumococca e l capsular polysacchar bebo type 10A vaccine / pneumococca l capsular polysacchar bebo type 11A vaccine / pneumococca l capsular polysacchar bebo type 12F vaccine / pneumococca l capsular polysacchar influenza 2014-07 No Notes: Memori a virus - (Same as: l vaccine, 15:00: Fluzone Stephen n inactivated 00 Quadrivale nt) For 3 years of age and older (0.5 mL IM) Shake well before use Aspirin 2014-07 No Notes: Memoria 2- Take with l 15:00: food. [place] 00 Lisinopril 2014-07 No Notes: Memor ia - (Same as: l 15:00: Prinivil, [place] 00 Zestril) NovoLOG 2014-07 No Notes: Memoria FlexPen 2-09 Roll in l 13:30: palms of Buck 00 hands gently; Do not shake vigorously . (Same as: NovoLOG) "single patient use only" Stable for 28 days at room temperatur e. 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 (Same as: NovoLIN N, Humulin N) Do not hold insulin without contacting prescriber "single patient use only" Stable for 14 days at room temperatur e Expires in days from ____Date Clonidine 2014-07 No Notes: Katyori a Hydrochlori 2-08 (Same As: l de 0.1 MG 22:52: Catapres) Her muñoz Oral Tablet 00 Insulin, 2014-07 No Notes: Memoria Aspart, 2-08 Roll in l Human 22:49: palms of [place] 00 hands gently; Do not shake vigorously . (Same as: NovoLOG) "single patient use only" Stable for 28 days at room temperatur e. Expires in days from ____Date Dextrose 2014-07 No 12.5 gm, Memor ia 50% Syringe 09-07 25 mL, l 22:49: Route: Buck 00 IVP, Drug Form: INJ, Dosing Weight 103.182, kg, PRN, PRN Blood Glucose Results, Start date: 07/07/15 16:49:00, Duration: 30 day, Stop date: 08/06/15 16:48:00 Glucagon 2014-07 No 1 mg, Memoria 2-08 Route: IM, l 22:49: Drug form: Buck 00 PDR/INJ, PRN, Dosing Weight 103.182, kg, PRN Blood Glucose Results, Start date: 07/07/15 16:49:00, Duration: 30 day, Stop date: 08/06/15 16:48:00 Insulin, 2014-07 No Notes: Memoria Aspart, 2-08 Roll in l Human 20:29: palms of Buck 00 hands gently; Do not shake vigorously . (Same as: NovoLOG) "single patient use only" Stable for 28 days at room temperatur e. Expires in days from ____Date Dextrose 2014-07 No 25 gm, 50 Isirdo elisa 50% Syringe 2-08 mL, Route: l 20:29: IVP, Drug Buck Form: INJ, Dosing Weight 103.182, kg, PRN, PRN Blood Glucose Results, Start date: 07/07/15 14:29:00, Duration: 30 day, Stop date: 08/06/15 14:28:00 Glucagon 2014-07 No 1 mg, Memoria 2-08 Route: IM, l 20:29: Drug form: Buck 00 PDR/INJ, PRN, Dosing Weight 103.182, kg, PRN Blood Glucose Results, Start date: 07/07/15 14:29:00, Duration: 30 day, Stop date: 08/06/15 14:28:00 atropine 2014-07 No 0.5 mg, 5 Isidro elisa 2-08 mL, Route: l 19:00: IVP, Drug [place] 00 form: INJ, PRN, PRN Bradycardi a, Start date: 07/07/15 13:00:00, Duration: 30 day, Stop date: 08/06/15 12:59:00 nitroglycer 2014-07 No Notes: Isidro elisa in 0.4 mg 2-08 (Same l sublingual 19:00: as:Nitroqu H ermann tablet 00 ick, Nitrostat) "Do Not Crush" Sublingual tablet Insulin 2014-07 No 4 unit, Memoria regular 2-08 Route: l 17:48: SUB-Q, ONCE, Dosing Weight 103.182, kg, Start date: 07/07/15 11:48:00, Stop date: 07/07/15 11:48:00 Saline 2014-07 No 10 ml, Memoria Flush 0.9% 2-08 Route: l 16:57: IVP, Drug Form: INJ, Dosing Weight 103.182, kg, PRN, PRN Line Flush, Start date: 07/07/15 10:57:00, Duration: 30 day, Stop date: 08/06/15 10:56:00 Aspirin 2014-07 No 325 mg, Memoria 2-08 Route: PO, l 15:12: ONCE, Dosing Weight 103.182, kg, Start date: 07/07/15 9:12:00, Stop date: 07/07/15 9:12:00 Saline 2014-07 No Notes: Memoria Flush 0.9% 08 (Same as: l 13:54: BD Posiflush) Acetaminoph Yes 1-2 tab, Me moria en 325 MG / 5-11 PO, Q4-6H, l Hydrocodone 22:28: PRN Pain, H ermann Bitartrate 00 X 7 day, # 10 MG Oral 50 tab, 0 Tablet Refill(s), [Empire other 10/325] Insulin, No Notes: Memoria Aspart, 5-10 Roll in l Human 14:56: palms of hands gently; Do not shake vigorously . (Same as: NovoLOG) "single patient use only" Stable for 28 days at room temperatur e. Expires in days from ____Date Glucagon No 1 mg, Memoria 5-10 Route: IM, l 14:56: Drug form: PDR/INJ, PRN, Dosing Weight 93.636, kg, PRN Blood Glucose Results, Start date: 12/07/14 9:56:00, Duration: 30 day, Stop date: 01/06/15 9:55:00 Dextrose No 12.5 gm, Memor ia 50% Syringe 5-10 25 mL, l 14:56: Route: Buck 00 IVP, Drug Form: INJ, Dosing Weight 93.636, kg, PRN, PRN Blood Glucose Results, Start date: 12/07/14 9:56:00, Duration: 30 day, Stop date: 01/06/15 9:55:00 Promethazin No 12.5 mg, Me moria e 5-10 50 mL, l 14:52: Route: [place] 00 IVPB, Drug form: SOLN, Q4H, Dosing Weight 93.636, kg, PRN Nausea & Vomiting, Start date: 12/07/14 9:52:00, Duration: 30 day, Stop date: 01/06/15 9:51:00 Insulin, No Notes: Memoria Aspart, 5-10 Roll in l Human 12:45: palms of Buck hands gently; Do not shake vigorously . (Same as: NovoLOG) "single patient use only" Stable for 28 days at room temperatur e. Expires in days from ____Date Lovenox No Notes: Memoria 5-10 (Same as: l 04:50: Lovenox) [place] Kayexalate No Notes: Memor ia 12-06 (sodium l 22:29: polystyren Buck 00 e sulfonate 15 gm/60 ml EMRE) Shake well before use. (Same as: Kayexalate , SPS) Hydromorpho No Notes: Isidro elisa ne 12-06 (Same as: l 17:00: Dilaudid) [place] 00 conc = 0.5 mg/ml Hydromorph one FACILITY PRACTICE SPECIALIST Dose:0.2 mg ;Delay:10 min ;Basal:0 FACILITY PRACTICE SPECIALIST Limit: 6 FACILITY PRACTICE SPECIALIST Hydromorph one Loading Dose: 0.4mg FACILITY PRACTICE SPECIALIST Hydromorph one Dose: 0.2 mg FACILITY PRACTICE SPECIALIST Hydromorph one Basal Rate: 0 mg FACILITY PRACTICE SPECIALIST Lockout Parameters : 10 minutes Ancef No 1 gm, Memoria 12-06 Route: l 17:00: IVPB, Buck [id number], Dosing Weight 93.636, kg, Start date: 12/06/14 12:00:00, Duration: 30 day, Stop date: 01/05/15 4:00:00 Ofirmev No Notes: Memoria - Infuse l 16:53: over 15 Buck 00 minutes Do not exceed 4gm/day of acetaminop hen MEDICATION WASTE Product Size: 1000 mg Product Wasted: _0__ mg Acetaminoph No Notes: Do M emoria en 325 MG / 12-06 not exceed l Hydrocodone 16:53: 4gm/day of Buck Bitartrate 00 acetaminop 10 MG Oral hen. (Same Tablet as: Empire [Empire 325/10) 10/325] Naloxone No Notes: Memoria 12-06 Same as l 16:52: Narcan Buck 00 Ondansetron No Notes: Isidro elisa 12-06 (Same as: l 16:27: Zofran) [place] 00 MEDICATION WASTE Product Size: 4 mg Product Wasted: _0__ mg Naloxone No Notes: Memoria 5- Same as l 16:27: Narcan Buck 00 Diphenhydra No Notes: Isidro elisa mine 12-06 (Same as: l 16:27: Benadryl) [place] Ketorolac No 4 days Memor ia - l 16:27: MEDICATION Buck 00 WASTE Product Size: 30 mg Product Wasted: _0__ mg Flumazenil No Notes: Memor ia 12-06 (Same as: l 16:27: Romazicon) [place] Morphine No Notes: Memoria 12-06 (Same l 16:27: as:MORPhin [place] e Sulfate) Hydromorpho No Notes: Isidro elisa ne 12-06 (Same as: l 16:27: Dilaudid) [place] Calcium No 1,000 mL, Memor ia Chloride 12-06 Rate: 25 l 0.0014 16:26: ml/hr, Buck MEQ/ML / 00 Infuse Potassium over: 40 Chloride hr, Route: 0.004 IV, Dosing MEQ/ML / Weight Sodium 93.636 kg, Chloride Total 0.103 Volume: MEQ/ML / 1,000, Sodium Start Lactate date: 0.028 12/06/14 MEQ/ML 11:26:00, Injectable Duration: Solution 30 day, Stop date: 01/05/15 11:25:00 Calcium 0 No 2,000 mg, Memor ia Gluconate 12-06 20 mL, l 15:37: Route: [place] 00 IVPB, ONCE, Dosing Weight 93.636, kg, Priority: STAT, Start date: 12/06/14 10:37:00, Stop date: 12/06/14 10:37:00 Kayexalate 0 No Notes: Memor ia 12-06 (sodium l 15:37: polystyren e sulfonate 15 gm/60 ml EMRE) Shake well before use. (Same as: Kayexalate , SPS) Ancef No 2 gm, Memoria 12-06 Route: l 15:10: IVPB, ONCE, Dosing Weight 93.636, kg, Start date: 12/06/14 10:10:00, Duration: 1 doses or times, Stop date: 12/06/14 10:10:00 Humalog No Route: Memoria 12-06 SUB-Q, l 14:00: BID, Dosing Weight 93.636, kg, Start date: 12/06/14 9:00:00, Duration: 30 day, Stop date: 01/04/15 17:00:00 Insulin 0 No 60 units) Isidro elisa regular 12-06 Stable for l 12:30: 28 days at Buck 00 room temperatur e Expires in days from ____Date Acetaminoph No Notes: Do M emoria en 12-06 not exceed l 04:37: 4 gm/day. 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 - Stable for l H 02:30: 28 days at [place] 00 room temperat e Expires in days from ____Date d50 syringe No 25 gm, 50 M emoria 5-09 mL, Route: l 02:12: IV, Drug Form: INJ, Dosing Weight 93.636, kg, ONCE, Start date: 12/05/14 21:12:00, Stop date: 12/05/14 21:12:00 Lisinopril No Notes: Memor ia 12-06 (Same as: l 02:00: Prinivil, Zestril) Zofran No Notes: Memoria 12-06 (Same as: l 01:58: Zofran) 00 MEDICATION WASTE Product Size: 4 mg Product Wasted: ___ mg insulin Yes 35 units, Memor ia isophane-SALES TEAM RECRUITER - SUB-Q, l H 01:46: BID, 0 Refill(s) cefepime No Notes: Memoria 12-06 (Same As: l 01:00: Maxipime) MEDICATION WASTE Product Size: 1000 mg Product Wasted: ___ mg Insulin No 60 units) Isidro elisa regular -08 Stable for l 23:10: 28 days at Buck room temperat e Expires in days from ____Date Vancomycin No 1 gm, 200 Me moria 5-08 mL, Route: l 23:00: IVPB, Drug form: INJ, [id number], Dosing Weight 93.636, kg, Start date: 12/05/14 18:00:00, Duration: 30 day, Stop date: 01/04/15 6:00:00 Sodium 2014-0 No 25 mL, Memoria Chloride 12-05 Route: IV, l 0.9% IV 22:45: Start Leopold 00 date: 12/05/14 17:45:00, Duration: 30 day, Stop date: 01/04/15 17:44:00, PRN Line Flush BD Normal No Notes: Memori a Saline 12-05 (Same as: l Flush 22:45: BD Posiflush) d50 syringe No 1 amp, Isidro elisa 12-05 Route: IV, l 22:40: Drug Form: Buck 00 INJ, Dosing Weight 93.636, kg, ONCE, Start date: 12/05/14 17:40:00, Stop date: 12/05/14 17:40:00 Calcium No 2,000 mg, Memor ia Gluconate 12-05 20 mL, l 22:40: Route: IVPB, ONCE, Dosing Weight 93.636, kg, Start date: 12/05/14 17:40:00, Stop date: 12/05/14 17:40:00 Morphine No Notes: Memoria 12-05 (Same l 22:30: as:MORPhin e Sulfate) Acetaminoph No Notes: Do M emoria en 325 MG / 12-05 not exceed l Hydrocodone 22:28: 4gm/day of Bitartrate 00 acetaminop 10 MG Oral hen. (Same Tablet as: Empire [Empire 325/10) 10/325] ceFAZolin No Notes: Memori a 12-05 Same as: l 11:00: Ancef Buck 00 Sulfamethox Yes 2 tab, PO, Memoria azole 400 12-04 BID, # 40, l MG / 15:51: 0 Leopold Trimethopri 00 Refill(s) m 80 MG Oral Tablet [Bactrim] Ondansetron No Notes: Isidro elisa 08 (Same as: l 19:38: Zofran) MEDICATION WASTE Product Size: 4 mg Product Wasted: ___ mg Flumazenil No Notes: Memor ia 11-05 (Same as: l 19:38: Romazicon) Naloxone No Notes: Memoria 08 Same as l 19:38: Narcan Buck 00 Morphine No Notes: Memoria -08 (Same as: l 19:38: MORPhine Sulfate) Acetaminoph No Notes: Isidro elisa en 08 Infuse l 19:38: over 15 [place]opold 00 minutes Do not exceed 4gm/day of acetaminop hen MEDICATION WASTE Product Size: 1000 mg Product Wasted: ___ mg Labetalol No Notes: Memori a 11-05 (Same as: l 19:38: Normodyne, Buck 00 Trandate) Push over 2 minutes Give bolus over 2-3 minutes. Sodium No 1,000 mL, Memori a Chloride 11-05 Rate: 125 l 0.154 19:38: ml/hr, Buck MEQ/ML 00 Infuse Injectable over: 8 Solution hr, Route: IV, Dosing Weight 95.455 kg, Total Volume: 1,000, Start date: 11/05/14 14:38:00, Duration: 30 day, Stop date: 12/05/14 14:37:00 Zofran No 4 mg, Memoria 11-05 Route: l 16:23: IVP, Drug form: INJ, ONCE, Dosing Weight 95.455, kg, Start date: 11/05/14 11:23:00, Stop date: 11/05/14 11:23:00 Insulin No 2 unit, Memoria regular 11-05 Route: l 15:40: SUB-Q, Buck 00 ONCE, Dosing Weight 95.455, kg, Start date: 11/05/14 10:40:00, Stop date: 11/05/14 10:40:00 lidocaine No Notes: Memori a 1% 11-05 Preservati l 15:00: ve free. Buck 00 (Same as: Xylocaine MPF) Ancef No Notes: Memoria 11-05 Same as: l 14:55: Ancef [place]opold 00 Calcium No 1,000 mL, Memor ia Chloride 11-05 Rate: 25 l 0.0014 14:54: ml/hr, [place]opold MEQ/ML / 00 Infuse Potassium over: 40 Chloride hr, Route: 0.004 IV, Dosing MEQ/ML / Weight Sodium 95.455 kg, Chloride Total 0.103 Volume: MEQ/ML / 1,000, Sodium Start Lactate date: 0.028 11/05/14 MEQ/ML 9:54:00, Injectable Duration: Solution 30 day, Stop date: 12/05/14 9:53:00 Acetaminoph Yes 1 tab, PO, Memoria en 325 MG / -03 Q4-6H, PRN l Hydrocodone 19:46: Pain, # 40 Buck Bitartrate 00 tab, 0 7.5 MG Oral Refill(s) Tablet [Empire 7.5/325] Bactrim DS No Notes: One M emoria -03 DS tablet l 16:00: = trimethopr im 160mg + sulfametho xazole 800 mg Dose based on trimethopr im component On empty stomach with a glass of water. 1 hr before meals (Same As: Bactrim DS, Septra DS) Sulfamethox Yes 1 tab, PO, Memoria azole 800 03 BID, # 30 l MG / 15:10: tab, 0 Leopold Trimethopri 00 Refill(s) m 160 MG Oral Tablet [Bactrim] Loratadine No Notes: 1 Mem oria 4-02 hr before l 14:00: meals Leopold 00 (Same as: Claritin) Promethazin No 25 mg, 50 M emoria e -01 mL, Route: l 02:33: IVPB, Drug form: SOLN, Q6H, Dosing Weight 94.574, kg, PRN as needed for nausea/vom iting, Start date: 10/28/14 21:33:00, Duration: 30 day, Stop date: 11/27/14 21:32:00 Zofran No Notes: Memoria 10-29 (Same as: l 02:32: Zofran) insulin No 60 units) Isidro elisa isoph[employer] TE[employer]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 10-29 Stable for l H 02:00: 28 days at Buck 00 room temperatur e Expires in days from ____Date Diphenhydra No Notes: Isidro elisa mine 3-31 (Same as: l 22:13: Benadryl) Ondansetron No Notes: Isidro elisa 3-31 (Same as: l 22:13: Zofran) Hydromorpho No Notes: Isidro elisa ne 3-31 (Same as: l 22:13: Dilaudid) Morphine No Notes: Memoria 3-31 (Same l 22:13: as:MORPhin e Sulfate) Naloxone No Notes: Memoria 3-31 Same as l 22:13: Narcan Meperidine No Notes: Memor ia 3-31 (Same As: l 22:13: Demerol) Flumazenil No Notes: Memor ia 3-31 (Same as: l 22:13: Romazicon) Hydralazine No Notes: Isidro elisa 3-31 (Same as: l 22:13: Apresoline ) Push over 5 minutes Labetalol No Notes: Memori a 3-31 (Same as: l 22:13: Normodyne, Trandate) Push over 2 minutes Give bolus over 2-3 minutes. Norvasc No Notes: Memoria 3-31 (Same as: l 14:00: Norvasc) insulin No 60 units) Isidro elisa isoph[employer]AL[employer] TE[employer] RECRUITER 3-31 Stable for l H 12:30: 28 days at Buck room temperatur e Expires in days from ____Date Insulin No 60 units) Isidro elisa regular 3-30 Stable for l 22:37: 28 days at [place] 00 room temperatur e Expires in days from ____Date Dextrose No 25 gm, 50 Isidro elisa 50% Syringe 3-30 mL, Route: l 22:37: IVP, Drug Form: INJ, Dosing Weight 94.574, kg, PRN, PRN Blood Glucose Results, Start date: 10/27/14 17:37:00, Duration: 30 day, Stop date: 11/26/14 17:36:00 Glucagon No 1 mg, Memoria 3- Route: IM, l 22:37: Drug form: 00 PDR/INJ, PRN, Dosing Weight 94.574, kg, PRN Blood Glucose Results, Start date: 10/27/14 17:37:00, Duration: 30 day, Stop date: 11/26/14 17:36:00 ferrous 2014- No Notes: Memoria sulfate 3-30 Give with l 14:00: food. iron elemental [id number] as ferrous sulfate Dose=___mg elemental iron Hydrochloro No Notes: Isidro elisa thiazide 3-30 (Same as: l 14:00: Hydrodiuri l) With food. insulin No 60 units) Isidro elisa isoph[employer] TE[employer] RECRUITER 3-30 Stable for l H 13:10: 28 days at [place] 00 room temperatur e Expires in days from ____Date Insulin No 60 units) Isidro elisa regular 3-30 Stable for l 13:09: 28 days at [place] 00 room temperatur e Expires in days from ____Date Hydralazine No Notes: Isidro elisa 3-30 (Same as: l 01:29: Apresoline ) Push over 5 minutes Vancomycin No 2001 mg: Me moria 3- infuse l 18:00: over 2.5 Buck 00 hours insulin 0 No 60 units) Isidro elisa isoph[employer]AL[employer] TE[employer] RECRUITER 3-28 Stable for l H 14:00: 28 days at Buck 00 room temperatur e Expires in days from ____Date insulin 2014-0 No 60 units) Isidro elisa 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[employer]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 e Expires in days from ____Date Insulin 2014-0 No 60 units) Isidro elisa regular - Stable for l 22:23: 28 days at [place] [id number] [facility] e Expires in days from ____Date Glucagon 2014-0 No 1 mg, Memoria 10-24 Route: IM, l 22:23: Drug form: [place] 00 PDR/INJ, PRN, Dosing Weight 94.574, kg, PRN Blood Glucose Results, Start date: 10/24/14 17:23:00, Duration: 30 day, Stop date: 11/23/14 17:22:00 Dextrose 2014-0 No 12.5 gm, Memor ia 50% Syringe 10-24 25 mL, l 22:23: Route: IVP, Drug Form: INJ, Dosing Weight 94.574, kg, PRN, PRN Blood Glucose Results, Start date: 10/24/14 17:23:00, Duration: 30 day, Stop date: 11/23/14 17:22:00 insulin 2015-0 No 60 units) Isidro elisa isoph[employer]AL[employer] TE[employer] RECRUITER - Stable l H 17:04: for 28 [place]opold 00 days at room temperatur e Expires in days from ____Date xalate No Notes: Memor ia 3-27 (sodium l 16:39: polystyren Buck 00 e sulfonate 15 gm/60 ml EMRE) Shake well before use. (Same as: Kayexalate , SPS) Lisinopril No Notes: Memor ia 3-27 (Same as: l 14:00: Prinivil, Buck Zestril) Humalog No Route: Memoria 3-27 SUB-Q, l 14:00: BID, Buck Dosing Weight 94.574, kg, Start date: 10/24/14 9:00:00, Duration: 30 day, Stop date: 11/22/14 17:00:00 Miralax No Notes: Memoria 3-27 Dissolve l 14:00: in 8 oz of [place]opold water or juice. 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 (Same as: NovoLOG) "single patient use only" Stable for 28 days at room temperatur e. Expires in days from ____Date Insulin No 60 units) Isidro elisa regular 3-27 Stable for l 12:27: 28 days at Buck 00 room temperatur e Expires in days from ____Date Dextrose No 12.5 gm, Memor ia 50% Syringe 3-27 25 mL, l 12:27: Route: Buck 00 IVP, Drug Form: INJ, Dosing Weight 94.574, kg, PRN, PRN Blood Glucose Results, Start date: 10/24/14 7:27:00, Duration: 30 day, Stop date: 11/23/14 7:26:00 Glucagon No 1 mg, Memoria 10-24 Route: IM, l 12:27: Drug form: PDR/INJ, PRN, Dosing Weight 94.574, kg, PRN Blood Glucose Results, Start date: 10/24/14 7:27:00, Duration: 30 day, Stop date: 11/23/14 7:26:00 Kayexalate No Notes: Memor ia 10-24 (sodium l 10:22: polystyren e sulfonate 15 gm/60 ml EMRE) Shake well before use. (Same as: Kayexalate , SPS) NS 1,000 mL No 1,000 mL, M emoria 10-24 Rate: 75 l 10:21: ml/hr, Infuse over: 13.3 hr, Route: IV, Dosing Weight 94.574 kg, Total Volume: 1,000, Start date: 10/24/14 5:21:00, Duration: 30 day, Stop date: 11/23/14 5:20:00 Zosyn No Notes: Memoria - (Same as: l 07:00: Zosyn) Dosing based on Piperacill in component Sodium No 25 mL, Memoria Chloride 10-24 Route: IV, l 0.9% IV 06:40: Start date: 10/24/14 1:40:00, Duration: 30 day, Stop date: 11/23/14 1:39:00, PRN Line Flush BD Normal No Notes: Memori a Saline 10-24 (Same as: l Flush 06:40: BD Posiflush) Vancomycin No 1 gm, 200 Me moria 3- mL, Route: l 06:00: IVPB, Drug form: INJ, [id number], Dosing Weight 90, kg, Start date: 10/24/14 1:00:00, Duration: 30 day, Stop date: 11/22/14 13:00:00 Humalog Yes 35 units, Memor ia 3- SUB-Q, l 05:27: BID, 0 [place]opold 00 Refill(s) Insulin Yes 10 unit, Memori a regular - SUB-Q, l 05:27: TID-Before [place]opold 00 Meals, 0 Refill(s) Dilaudid No Notes: Memoria 10-24 (Same as: l 05:01: Dilaudid) Ondansetron No Notes: Isidro elisa 10-24 (Same as: l 04:59: Zofran) Acetaminoph No Notes: Isidro elisa en 325 MG / 10-24 (Same as: l Hydrocodone 04:59: Empire Lo nn Bitartrate 00 325/5) Do 5 MG Oral not exceed Tablet 4gm/day of acetaminop hen. Regular Yes 10 unit, Memori a Insulin, 2-12 SUB-Q, l Human 100 19:12: TID-Before He rmann UNT/ML 00 Meals, # Injectable 10 mL, 0 Solution Refill(s) Blood Yes Special Memoria Glucose 2-12 Instructio l Test Strips 19:12: ns: For Her muñoz 00 Accu-check Chelo Lancets Yes 1 box, Memoria 2-12 MISC, l 19:12: Daily, # 1 [place]opold 00 box, 0 Refill(s) Insulin Yes 1 syr, Memoria Syringes U 2-12 INJ, l 30 31 ga 19:12: ONCALL, # Herm bhavin (ultra 00 100 syr, 0 fine) Refill(s) insulin Yes 35 unit, Memori a isophane 2-12 SUB-Q, l human 19:12: Q12H, # 20 Stephen n recombinant 00 mL, 0 100 Refill(s) units/mL subcutaneou s injection lisinopril Yes 20 mg = 1 Me moria 20 mg oral 2-12 tab, PO, l tablet 19:12: Daily, # Leopold 00 30 tab, 0 Refill(s) Acetaminoph Yes 1 tab, PO, Memoria en 325 MG / 2-12 Q6H, as l Hydrocodone 19:12: needed for Bitartrate pain, # 20 10 MG Oral tab, 0 Tablet Refill(s) Sodium No 25 mL, Memoria Chloride 09-11 Route: IV, l 0.9% IV 15:50: Start date: 09/11/14 9:50:00, Duration: 30 day, Stop date: 10/11/14 10:49:00, PRN Line Flush BD Normal No Notes: Memori a Saline -12 (Same as: l Flush 15:50: BD Posiflush) Lisinopril No Notes: Memor ia -12 (Same as: l 15:39: Prinivil, Zestril) NPH No 60 units) Memoria Insulin, 12 Stable for l Pork 03:00: 28 days at Buck 00 room temperatur e Expires in days from ____Date Insulin, No 60 units) Mem oria Regular, 2-11 Stable for l Pork 22:30: 28 days at [place] 00 room temperatur e Expires in days from ____Date Bisacodyl No Notes: Memori a 2-11 (Same As: l 18:00: Dulcolax, Correctol) (Do Not Crush) "Do Not Crush" Insulin, No 60 units) Mem oria Regular, 2-11 Stable for l Pork 17:39: 28 days at [place] room temperatur e Expires in days from ____Date Dextrose No 25 gm, 50 Isidro elisa 50% Syringe 2-11 mL, Route: l 17:39: IVP, Drug Form: INJ, Dosing Weight 90, kg, PRN, PRN Blood Glucose Results, Start date: 09/10/14 11:39:00, Duration: 30 day, Stop date: 10/10/14 12:38:00 Glucagon No 1 mg, Memoria 11 Route: IM, l 17:39: Drug form: Buck 00 PDR/INJ, PRN, Dosing Weight 90, kg, PRN Blood Glucose Results, Start date: 09/10/14 11:39:00, Duration: 30 day, Stop date: 10/10/14 12:38:00 Acetaminoph No Notes: Do M emoria en 325 MG / 2-11 not exceed l Hydrocodone 01:18: 4gm/day of Buck Bitartrate 00 acetaminop 10 MG Oral hen. (Same Tablet as: Empire 325/10) Albuterol No Notes: SEE Me moria 0.83 MG/ML 2-10 RT l Inhalant 23:53: DOCUMENTAT Her muñoz Solution 00 ION (Same as: Proventil) Diphenhydra No Notes: Isidro elisa mine 2-10 (Same as: l 23:53: Benadryl) Atropine No 0.2 mg, 2 Isidro elisa 2-10 mL, Route: l 23:53: IVP, Drug form: INJ, Q5Min, Dosing Weight 90, kg, PRN Other -See Comment, as needed; for symptomati c pulse rate < 80% of mean 50 BPM, Start date: 09/09/14 17:53:00, Duration: 1 day, Stop date: 09/10/14 17:52:00 Naloxone No Notes: Memoria 2-10 Same as l 23:53: Narcan Meperidine No Notes: Memor ia 2-10 (Same As: l 23:53: Demerol) Flumazenil No Notes: Memor ia 2-10 (Same as: l 23:53: Romazicon) Morphine No Notes: Memoria 2-10 (Same l 23:53: as:MORPhin e Sulfate) Ondansetron No Notes: Isidro elisa 2-10 (Same as: l 23:53: Zofran) Labetalol No Notes: Memori a 2-10 (Same as: l 23:53: Normodyne, Trandate) Push over 2 minutes Give bolus over 2-3 minutes. Glycopyrrol No Notes: Isidro elisa ate 2-10 (Same as: l 23:53: Robinul) Hydromorpho No Notes: Isidro elisa ne 2-10 (Same as: l 23:53: Dilaudid) Sodium No 1,000 mL, Memori a Chloride 2-10 Rate: 125 l 0.154 23:53: ml/hr, [place] MEQ/ML 00 Infuse Injectable over: 8 Solution hr, Route: IV, Dosing Weight 90 kg, Total Volume: 1,000, Start date: 09/09/14 17:53:00, Duration: 1 day, Stop date: 09/10/14 17:52:00 Sodium No 250 mL, Memoria Chloride 2-10 Rate: On l 0.9% 20:40: call for Leopold (titrate) 00 use with 250 mL blood product administra tion, Dosing Weight 90, kg, Route: IV, Total Volume: 250, Start Date: 09/09/14 14:40:00, Duration: 1 day, Stop date: 09/10/14 14:39:00, Replace Every: 24 hr Lisinopril No Notes: Memor ia 2-10 (Same as: l 15:00: Prinivil, Zestril) Novolin R No 60 units) Me moria 2-10 Stable for l 15:00: 28 days at [facility] 00 room temperatur e Expires in days from ____Date Novolin N No 60 units) Me moria 2-10 Stable for l 15:00: 28 days at [facility] 00 room temperatur e Expires in days from ____Date Cleocin HCl No Notes: Isidro elisa 2-10 (Same As: l 15:00: Cleocin) Cipro No Notes: May Memori a 2-10 interfere l 15:00: w/enteral feedings - Take 1 hr before or 2 hrs after antacids, dairy pdt & minerals. On empty stomach. heparin No 5,000 Memoria sodium, 2-10 unit, l porcine 15:00: Route: Leopold 2500 UNT/ML 00 SUB-Q, Injectable Drug form: Solution INJ, Q12H, Dosing Weight 90, kg, Start date: 09/09/14 9:00:00, Duration: 30 day, Stop date: 10/08/14 21:00:00 Insulin, No Notes: Memoria Aspart, 2-10 Roll in l Human 11:45: palms of Buck 00 hands gently; Do not shake vigorously . (Same as: NovoLOG) "single patient use only" Stable for 28 days at room temperatur e. Expires in days from ____Date Clindamycin No Notes: Isidro elisa 2-10 (clindamyc l 08:00: in 150 Leopold 00 mg/1 ml (600 mg/4 ml VL) INJ) (Same As: Cleocin) Cipro No Notes: Do Memoria 2-10 not l 08:00: refrigerat Buck 00 e Glucagon No 1 mg, Memoria 2-10 Route: IM, l 07:11: Drug form: Buck 00 PDR/INJ, PRN, Dosing Weight 90, kg, PRN Blood Glucose Results, Start date: 09/09/14 1:11:00, Duration: 30 day, Stop date: 10/09/14 2:10:00 Dextrose No 25 gm, 50 Isidro elisa 50% Syringe 2-10 mL, Route: l 07:11: IVP, Drug Buck 00 Form: INJ, Dosing Weight 90, kg, PRN, PRN Blood Glucose Results, Start date: 09/09/14 1:11:00, Duration: 30 day, Stop date: 10/09/14 2:10:00 Insulin, No Notes: Memoria Aspart, 2-10 Roll in l Human 07:11: palms of Leopold 00 hands gently; Do not shake vigorously . (Same as: NovoLOG) "single patient use only" Stable for 28 days at room temperatur e. Expires in days from ____Date Sodium No 1,000 mL, Memori a Chloride 2-10 Rate: 75 l 0.154 07:10: ml/hr, Leopold MEQ/ML 00 Infuse Injectable over: 13.3 Solution hr, Route: IV, Dosing Weight 90 kg, Total Volume: 1,000, Start date: 09/09/14 1:10:00, Duration: 30 day, Stop date: 10/09/14 1:09:00 Saline No Notes: Memoria Flush 0.9% 2-10 (Same as: l 07:10: BD Leopold 00 Posiflush) Morphine No Notes: Memoria 2-10 (Same l 07:10: as:MORPhin Buck 00 e Sulfate) Acetaminoph No Notes: Do M emoria en 325 MG / 2-10 not exceed l Hydrocodone 07:10: 4gm/day of Buck Bitartrate 00 acetaminop 10 MG Oral hen. (Same Tablet as: Empire 325/10) Ondansetron No Notes: Isidro elisa 2-10 (Same as: l 07:10: Zofran) Leopold Acetaminoph No Notes: Do M emoria en 2-10 not exceed l 07:10: 4 gm/day. Leopold 00 (Same as: Tylenol) Hydromorpho No Notes: Isidro elisa ne 2-10 (Same as: l 06:49: Dilaudid) Buck Acetaminoph Yes 1 tab, PO, Memoria en 325 MG / 2-10 Q4H, for l Hydrocodone 03:53: pain, 0 Her muñoz Bitartrate 00 Refill(s) 7.5 MG Oral Tablet [Empire 7.5/325] Ciprofloxac Yes 500 mg = 1 Memoria in 500 MG 2-10 tab, PO, l Oral Tablet 03:53: BID, # 28 H ermann [Cipro] 00 tab, 0 Refill(s) lisinopril No 10 mg = 1 Me moria 10 mg oral 2-10 tab, PO, l tablet 03:53: Daily, # Buck 00 30 tab, 0 Refill(s) clindamycin Yes 300 mg = 1 Memoria 300 mg oral 2-10 cap, PO, l capsule 03:53: QID, # 56 Lo nn 00 cap, 0 Refill(s) Novolin R No 25 units, Mem oria 2-10 SUB-Q, l 03:53: BID, 0 Leopold 00 Refill(s) Novolin N No 25 unit, Isidro elisa 2-10 SUB-Q, l 03:53: BID, 0 Leopold 00 Refill(s) Regular No 5 unit, Memoria Insulin, 2-04 Route: IV, l Human 100 16:00: MAGIALLLo nn UNT/ML 00 Dosing Injectable Weight Solution 97.727, [Humulin R] kg, Start date: 09/03/14 10:00:00 Ondansetron No Notes: Isidro elisa 2-04 (Same as: l 13:48: Zofran) Buck 00 Diphenhydra No Notes: Isidro elisa mine 2-04 (Same as: l 13:48: Benadryl) Leopold 00 Ephedrine No Notes: Memori a 2-04 (Same as: l 13:48: ePHEDrine Leopold 00 Sulfate) Naloxone No Notes: Memoria 2-04 Same as l 13:48: Narcan Leopold 00 Meperidine No Notes: Memor ia 2-04 (Same As: l 13:48: Demerol) Flumazenil No Notes: Memor ia 2-04 (Same as: l 13:48: Romazicon) Buck 00 Morphine No Notes: Memoria 2-04 (Same as: l 13:48: MORPhine Leopold 00 Sulfate) Hydromorpho No Notes: Isidro elisa ne 2-04 (Same as: l 13:48: Dilaudid) Promethazin No Notes: Do M emoria e 2-04 not give l 13:48: IV push. Leopold 00 (Same as: Phenergan) Labetalol No Notes: Memori a 2-04 (Same as: l 13:48: Normodyne, Leopold 00 Trandate) Push over 2 minutes Give bolus over 2-3 minutes. Sodium No 1,000 mL, Memori a Chloride 2-04 Rate: 125 l 0.154 13:48: ml/hr, Leopold MEQ/ML 00 Infuse Injectable over: 8 Solution hr, Route: IV, Dosing Weight 97.727 kg, Total Volume: 1,000, Start date: 09/03/14 7:48:00, Duration: 30 day, Stop date: 10/03/14 7:47:00 Lidocaine No Notes: Memori a Hydrochlori - Preservati l de 10 MG/ML 13:00: ve free. He rmann Injectable 00 (Same as: Solution Xylocaine MPF) Sodium No 1,000 mL, Memori a Chloride 2- Rate: 25 l 0.154 12:28: ml/hr, Buck MEQ/ML 00 Infuse Injectable over: 40 Solution hr, Route: IV, Dosing Weight 97.727 kg, Total Volume: 1,000, Start date: 09/03/14 6:28:00, Duration: 30 day, Stop date: 10/03/14 6:27:00 Unknown Yes PO, Memoria Home 204 Refill(s) l Medication 12:25: 0 Lisinopril Yes PO, Daily, M emoria 2-04 0 l 12:24: Refill(s) antibiotic Yes antibiotic M emoria 2-03 , l 17:37: Refill(s) 0 insulin Yes insulin, Memori a 203 Refill(s) l 17:37: 0 insulin No Agadadash 8 unit, Me moria regular 100 5-24 Kuliev 0.08 mL, l units/mL 04:24: Route: Buck human 00 SUB-Q, recombinant Drug form: SOLN, Sliding Scale, PRN Blood Glucose Results, Start date: 12/20/12 23:24:00, Stop date: 01/19/13 23:23:00 insulin No Agadadash 6 unit, Me moria regular 100 5-24 Kuliev 0.06 mL, l units/mL 04:23: Route: Leopold human 00 SUB-Q, recombinant Drug form: SOLN, Sliding Scale, PRN Blood Glucose Results, Start date: 12/20/12 23:23:00, Stop date: 01/19/13 23:22:00 Dextrose No Agadadash 25 mL, Me moria 50% in 5-24 Kuliev Route: l Water IV 04:23: IVP, Start Her muñoz 00 date: 12/20/12 23:23:00, Duration: 30 day, Stop date: 01/19/13 23:22:00, PRN Blood Glucose Results lisinopril Yes Agadadash 5 mg, 1 Memoria 5 mg oral 12-20 Kuliev tab, PO, l tablet 14:06: Daily, 30 Stephen n 52 tab, 4, 4, Substituti on Allowed, TAB NovoLog Mix Yes Agadadash 35 unit, Memoria 70/30 5-23 Kuliev SUB-Q, l FlexPen 13:47: BID-Before Herm bhavin subcutaneou 04 Meals, 3 s pen(s), 3, suspension 3, Substituti on Allowed, SUSP NovoLog Mix No Agadadash 40 unit, Memoria 70/30 5- Kuliev 0.4 mL, l FlexPen 12:30: Route: Leopold 00 SUB-Q, Drug form: INJ, Before Breakfast, Dosing Weight 91.818, kg, Start date: 12/20/12 7:30:00, Stop date: 01/18/13 7:30:00 NovoLog Mix No Agadadash 35 unit, Memoria 30 12-19 Kuliev 0.35 mL, l 21:30: Route: Leopold 00 SUB-Q, Drug form: INJ, Before Dinner, Dosing Weight 91.818, kg, Start date: 12/19/12 16:30:00, Stop date: 01/17/13 16:30:00 acetaminoph No Merlin P 1 tab, Memoria en-hydrocod 12-19 Soefer Route: PO, l one 325 18:18: Drug Form: Herm bhavin mg-7.5 mg 00 TAB, oral tablet Dosing Weight 91.818, kg, Q4H, PRN Pain Score 1-3, Start date: 12/19/12 13:18:00, Duration: 30 day, Stop date: 01/18/13 13:17:00 Insulin 2012-0 No Mauricio I 15 unit, Me moria regular 5-22 Nathan 0.15 mL, l 17:03: Route: Leopold 00 SUB-Q, Drug form: SOLN, TID-Before Meals, Dosing Weight 91.818, kg, PRN Blood Glucose Results, Start date: 12/19/12 12:03:00, Duration: 30 day, Stop date: 01/18/13 12:02:00 ondansetron 2012-0 No Mauricio I 4 mg, 2 Memoria 5-22 Nathan mL, Route: l 17:03: IVP, Drug form: INJ, ONCE, Dosing Weight 91.818, kg, PRN Nausea & Vomiting, Start date: 12/19/12 12:03:00 promethazin 2012-0 No Mauricio I 6.25 mg, Memoria e + Sodium 5-22 Nathan 0.25 mL, l Chloride 17:03: Route: Leopold 0.9% IV 50 00 IVPB, mL ONCE, Dosing Weight 91.818, kg, PRN Nausea & Vomiting, Start date: 12/19/12 12:03:00 morphine 2012-0 No Mauricio I 2 mg, 0.25 Memoria Sulfate 5-22 Nathan mL, Route: l 17:03: IVP, Drug form: INJ, Q5Min, Dosing Weight 91.818, kg, PRN Pain Score 4-6, Start date: 12/19/12 12:03:00, Duration: 5 doses or times, Stop date: Limited # of times meperidine 2012-0 No Mauricio I 12.5 mg, Memoria 5-22 Nathan 0.25 mL, l 17:03: Route: Buck 00 IVP, Drug form: INJ, Q30Min, Dosing Weight 91.818, kg, PRN Other -See Comment, For shivering, Start date: 12/19/12 12:03:00, Duration: 2 doses or times, Stop date: Limited # of times flumazenil 2012-0 No Mauricio I 0.2 mg, 2 Memoria 5-22 Nathan mL, Route: l 17:03: IVP, Drug Leopold 00 form: INJ, PRN, Dosing Weight 91.818, kg, PRN Benzodiaze pine Reversal, Initial dose, Start date: 12/19/12 12:03:00, Duration: 30 day, Stop date: 01/18/13 12:02:00 naloxone 2012- No Mauricio I 0.04 mg, M emoria 5-22 Nathan 0.1 mL, l 17:03: Route: Buck 00 IVP, Drug form: INJ, Q2MIN, Dosing Weight 91.818, kg, PRN Narcotic Reversal, Start date: 12/19/12 12:03:00, Duration: 8 doses or times, Stop date: Limited # of times Sodium No Mauricio I 1,000 mL, Me moria Chloride 5-22 Nathan Rate: 50 l 0.9% IV 17:03: ml/hr, Leopold 1,000 mL 00 Infuse over: 20 hr, Route: IV, Dosing Weight 91.818 kg, Total Volume: 1,000, Start date: 12/19/12 12:03:00, Duration: 30 day, Stop date: 01/18/13 12:02:00 ketorolac No Mauricio I 30 mg, 1 Memoria 5-22 Nathan mL, Route: l 17:03: IVP, Drug form: INJ, ONCE, Dosing Weight 91.818, kg, Start date: 12/19/12 12:03:00, Duration: 1 doses or times, Stop date: 12/19/12 12:03:00 acetaminoph No Mauricio I 1,000 mg, Memoria en 10 mg/mL 5-22 Nathan 100 mL, l intravenous 17:03: Route: IV, Buck solution 00 Drug form: INJ, ONCE, Dosing Weight 91.818, kg, PRN Pain Score 4-6, Start date: 12/19/12 12:03:00, Duration: 1 doses or times, Stop date: Limited # of times, Infuse over 15 minutes (for patient weight 50 kg or greater)In fuse over 15 minutes (for patient weight 50 kg or greater) NovoLog Mix 2013-0 No Agadadash 25 unit, Memoria 70/30 5-22 Kuliev 0.25 mL, l FlexPen 12:30: Route: Buck 00 SUB-Q, Drug form: INJ, ONCE, Dosing Weight 91.818, kg, Start date: 12/19/12 7:30:00, Stop date: 12/19/12 7:30:00 NovoLog Mix 2012-0 No Agadadash 35 unit, Memoria 7030 5-21 Kuliev 0.35 mL, l 21:30: Route: Buck 00 SUB-Q, Drug form: INJ, Before Dinner, Dosing Weight 91.818, kg, Start date: 12/18/12 16:30:00, Duration: 30 day, Stop date: 01/16/13 16:30:00 lisinopril 2012- No Agadadash 5 mg, 1 Memoria -21 Kuliev tab, l 14:00: Route: PO, Drug form: TAB, Daily, Dosing Weight 91.818, kg, Start date: 12/18/12 9:00:00, Duration: 30 day, Stop date: 01/16/13 9:00:00 NovoLog Mix 2012-0 No Agadadash 35 unit, Memoria 30 -21 Kuliev 0.35 mL, l 12:30: Route: Buck 00 SUB-Q, Drug form: INJ, Before Breakfast, Dosing Weight 91.818, kg, Start date: 12/18/12 7:30:00, Duration: 30 day, Stop date: 01/16/13 7:30:00 Sodium 2012-0 No Agadadash 25 mL, Isidro elisa Chloride - Kuliev Route: IV, l 0.9% IV 06:30: Start date: 12/18/12 1:30:00, Duration: 30 day, Stop date: 01/17/13 1:29:00, PRN Line Flush BD Normal 2012-0 No Agadadash 10 mL, M emoria Saline 5-21 Kuliev Route: IV, l Flush 06:30: Drug Form: Stephen n INJ, PRN, PRN Line Flush, Start date: 12/18/12 1:30:00, Duration: 30 day, Stop date: 01/17/13 1:29:00 clindamycin 2012-0 No Fede M 900 mg, 6 Memoria + Sodium 5-20 Reyes mL, Route: l Chloride 14:00: IVPB, Buck 0.9% IV 100 00 [id number], mL Dosing Weight 91.818, kg, Start date: 12/17/12 9:00:00, Duration: 30 day, Stop date: 01/16/13 1:00:00 NovoLog Mix 2012-0 No Agadadash 25 unit, Memoria 70/30 5-18 Kuliev 0.25 mL, l 12:30: Route: Leopold 00 SUB-Q, Drug form: INJ, Before Breakfast, Dosing Weight 91.818, kg, Start date: 12/15/12 7:30:00, Duration: 30 day, Stop date: 01/13/13 7:30:00 NovoLog Mix 2012-0 No Agadadash 25 unit, Memoria 70/30 5-18 Kuliev 0.25 mL, l 00:30: Route: Leopold 00 SUB-Q, Drug form: INJ, Before Dinner, Dosing Weight 91.818, kg, Start date: 12/14/12 19:30:00, Duration: 30 day, Stop date: 01/13/13 16:30:00 calcium 2012-0 No Agadadash 1,000 mg, Memoria gluconate + 5-18 Kuliev 10 mL, l Sodium 00:16: Route: Leopold Chloride 00 IVPB, 0.9% IV 50 ONCE, PRN mL Abnormal Lab Result, Start date: 12/14/12 19:16:00 glucagon 2012-0 No Agadadash 1 mg, Mem oria 5-17 Kuliev Route: IM, l 23:34: Drug form: Buck 00 PDR/INJ, PRN, Dosing Weight 91.818, kg, PRN Blood Glucose Results, Start date: 12/14/12 18:34:00, Duration: 30 day, Stop date: 01/13/13 18:33:00 Dextrose 2012-0 No Agadadash 12.5 gm, Memoria 50% Syringe 5-17 Kuliev 25 mL, l 23:34: Route: Leopold 00 IVP, Drug Form: INJ, Dosing Weight 91.818, kg, PRN, PRN Blood Glucose Results, Start date: 12/14/12 18:34:00, Duration: 30 day, Stop date: 01/13/13 18:33:00 insulin 2012- No Agadadash 3 unit, Me moria aspart 5-17 Kuliev 0.03 mL, l 23:34: Route: Buck 00 SUB-Q, Drug form: SOLN, TID-Before Meals, Dosing Weight 91.818, kg, PRN Blood Glucose Results, Start date: 12/14/12 18:34:00, Duration: 30 day, Stop date: 01/13/13 18:33:00 Empire 5/325 2012- No Agadadash 1 tab, Memoria oral tablet 5-17 Kuliev Route: PO, l 23:00: Drug Form: TAB, Dosing Weight 91.818, kg, Q4H, PRN Pain, Start date: 12/14/12 18:00:00, Duration: 30 day, Stop date: 01/13/13 17:59:00 vancomycin No Fede M 1 gm, 200 Memoria 5-17 Reyes mL, Route: l 23:00: IVPB, Drug form: INJ, [id number], Dosing Weight 91.818, kg, Start date: 12/14/12 18:00:00, Duration: 30 day, Stop date: 01/13/13 10:00:00 NS 1,000 mL No Agadadash 1,000 mL, Memoria 5-17 Kuliev Rate: 75 l 22:57: ml/hr, Infuse over: 13.3 hr, Route: IV, Dosing Weight 91.818 kg, Total Volume: 1,000, Start date: 12/14/12 17:57:00, Duration: 30 day, Stop date: 01/13/13 17:56:00 Tylenol No Agadadash 325 mg, 1 Memoria 5-17 Kuliev tab, l 22:56: Route: PO, Drug form: TAB, Q6H, Dosing Weight 91.818, kg, PRN Pain, Start date: 12/14/12 17:56:00, Duration: 30 day, Stop date: 01/13/13 17:55:00 Vasotec 2013-0 No Agadadash 0.625 mg, Memoria 5-17 Kuliev 0.5 mL, l 22:56: Route: Leopold 00 IVP, Drug form: INJ, Q6H, Dosing Weight 91.818, kg, PRN Hypertensi on, Start date: 12/14/12 17:56:00, Duration: 30 day, Stop date: 01/13/13 17:55:00, for systolic BP above 160 magnesium 2012-0 No Agadadash 2 gm, 50 Memoria sulfate 5-17 Kuliev mL, Route: l 22:56: IVPB, Drug Leopold 00 form: INJ, ONCE, Dosing Weight 91.818, kg, PRN Abnormal Lab Result, Total dose = 2 gm, Start date: 12/14/12 17:56:00, Duration: 1 doses or times, Stop date: Limited # of times, for magnesium below 1.7 Phenergan + 2012-0 No Agadadash 25 mg, 1 Memoria Sodium 5-17 Kuliev mL, Route: l Chloride 22:56: IVP Leopold 0.9% IV 50 00 Central, mL Q6H, Dosing Weight 91.818, kg, PRN Nausea & Vomiting, Start date: 12/14/12 17:56:00, Duration: 30 day, Stop date: 01/13/13 17:55:00 Ambien 2012-0 No Agadadash 5 mg, 1 Mem oria 5-17 Kuliev tab, l 22:56: Route: PO, Leopold 00 Drug form: TAB, Bedtime, Dosing Weight 91.818, kg, PRN Insomnia, Start date: 12/14/12 17:56:00, Duration: 30 day, Stop date: 01/13/13 17:55:00 clonidine 2012-0 No Agadadash 0.1 mg, 1 Memoria 0.1 mg oral 5-17 Kuliev tab, l tablet 22:56: Route: PO, Lo nn Drug form: TAB, Q8H, Dosing Weight 91.818, kg, PRN Hypertensi on, Start date: 12/14/12 17:56:00, Duration: 30 day, Stop date: 01/13/13 17:55:00, FOR SYSTOLIC BLOOD PRESSURE OVER 150 calcium No Agadadash 1,000 mg, Memoria chloride -17 Kuliev Route: l 22:56: IVPB, Buck 00 ONCE, Dosing Weight 91.818, kg, PRN, Priority: Routine, Start date: 12/14/12 17:56:00, Calcium less than 7.5 potassium No Agadadash 40 mEq, 2 Memoria chloride -17 Kuliev tab, l 22:56: Route: PO, Leopold 00 Drug form: ERTAB, ONCE, Dosing Weight 91.818, kg, PRN Abnormal Lab Result, Priority: Routine, Start date: 12/14/12 17:56:00, potassium less than 3.5 albuterol No Agadadash 2.49 mg, 3 Memoria 0.083% 12-14 Kuliev mL, Route: l inhalation 22:56: NEB, Drug He rmann solution 00 form: SOLN, RQ6H, Dosing Weight 91.818, kg, PRN Wheezing, Start date: 12/14/12 17:56:00, Duration: 30 day, Stop date: 01/13/13 17:55:00 acetaminoph No Agadadash 1 tab, Memoria en-hydrocod 12-14 Kuliev Route: PO, l one 325 22:21: Drug Form: Herm bhavin mg-7.5 mg 00 TAB, Q4H, oral tablet PRN Pain, Start date: 12/14/12 17:21:00, Duration: 30 day, Stop date: 01/13/13 17:20:00 lactulose lactulose No lactulose [facility] 10 gram/15 10 gram/15 10 gram/15 Medical mL oral mL oral mL oral solution solution solution levothyroxi levothyroxi No levothyrox [facility] ne 25 mcg ne 25 mcg ine 25 mcg Medical tablet TAKE tablet TAKE tablet 1 TABLET BY 1 TABLET BY TAKE 1 MOUTH ONCE MOUTH ONCE TABLET BY DAILY IN DAILY IN MOUTH ONCE THE MORNING THE MORNING DAILY IN ON AN EMPTY ON AN EMPTY THE STOMACH STOMACH MORNING ON AN EMPTY STOMACH nystatin nystatin No nystatin Della via 100,000 100,000 100,000 Medica l unit/gram unit/gram unit/gram topical topical topical ointment ointment ointment omeprazole omeprazole No 1capsul Q1D omeprazole [facility] 10 mg 10 mg e(s) 10 mg Medical capsule,del capsule,del capsule,de ayed ayed layed release release release Take 1 Take 1 Take 1 capsule capsule capsule every day every day every day by oral by oral by oral route for route for route for 30 days. 30 days. 30 days. ondansetron ondansetron No 1 Q8H ondansetro [facility] 4 mg 4 mg n 4 mg Medical disintegrat disintegrat disintegra ing tablet ing tablet ting Place 1 Place [address] 1 every 8 every 8 tablet hours by hours by every 8 oral route oral route hours by as needed. as needed. oral route as needed. potassium potassium No 20milli Q1D potassium [facility] chloride 20 chloride 20 equival chloride Medical mEq/15 mL mEq/15 mL ent(s) 20 mEq/15 oral liquid oral liquid mL oral Take 20 Take 20 liquid milliequiva milliequiva Take 20 lents every lents every milliequiv day by oral day by oral alents route. route. every day by oral route. senna 8.6 senna 8.6 No senna 8.6 [facility] mg tablet mg tablet mg tablet Medical TAKE 1 TAKE 1 TAKE 1 TABLET BY TABLET BY TABLET BY MOUTH ONCE MOUTH ONCE MOUTH ONCE DAILY DAILY DAILY tamsulosin tamsulosin No tamsulosin [facility] 0.4 mg 0.4 mg 0.4 mg Medical capsule capsule capsule Take 1 Take 1 Take 1 capsule capsule capsule every day every day every day by oral by oral by oral route for route for route for 30 days. 30 days. 30 days. acetaminoph acetaminoph No 1 Q8H acetaminop [facility] en 300 en 300 hen 300 Medical mg-codeine mg-codeine mg-codeine 30 mg 30 mg 30 mg tablet Take tablet Take tablet 1 tablet 1 tablet Take 1 every 8 every 8 tablet hours by hours by every 8 oral route oral route hours by as needed as needed oral route for 10 for 10 as needed days. days. for 10 days. acetylcyste acetylcyste No acetylcyst [facility] ine 100 ine 100 eine 100 Medic al mg/mL (10 mg/mL (10 mg/mL (10 %) solution %) solution %) solution albuterol albuterol No albuterol [facility] sulfate 2.5 sulfate 2.5 sulfate Medical mg/3 mL mg/3 mL 2.5 mg/3 (0.083 %) (0.083 %) mL (0.083 solution solution %) for for solution nebulizatio nebulizatio for n n nebulizati on albuterol albuterol No .5mL BID albuterol [facility] sulfate sulfate sulfate Medica l concentrate concentrate concentrat 2.5 mg/0.5 2.5 mg/0.5 e 2.5 mL solution mL solution mg/0.5 mL for for solution nebulizatio nebulizatio for n Inhale n Inhale nebulizati 0.5 mL 0.5 mL on Inhale twice a day twice a day 0.5 mL by by twice a nebulizatio nebulizatio day by n route. n route. nebulizati on route. amlodipine amlodipine No amlodipine [facility] 10 mg 10 mg 10 mg Medical tablet TAKE tablet TAKE tablet 1 TABLET BY 1 TABLET BY TAKE 1 MOUTH ONCE MOUTH ONCE TABLET BY DAILY DAILY MOUTH ONCE DAILY aspirin 81 aspirin 81 No aspirin 81 [facility] mg mg mg Medical tablet,nina tablet,nina tablet,del yed release yed release ayed TAKE 1 TAKE 1 release TABLET BY TABLET BY TAKE 1 MOUTH ONCE MOUTH ONCE TABLET BY DAILY DAILY MOUTH ONCE DAILY atorvastati atorvastati No atorvastat [facility] n 20 mg n 20 mg in 20 mg Medic al tablet Take tablet Take tablet 1 tablet 1 tablet Take 1 every day every day tablet by oral by oral every day route for route for by oral 30 days. 30 days. route for 30 days. budesonide budesonide No budesonide [facility] 0.5 mg/2 mL 0.5 mg/2 mL 0.5 mg/2 Medical suspension suspension mL for for suspension nebulizatio nebulizatio for n USE 1 n USE 1 nebulizati VIAL IN VIAL IN on USE 1 NEBULIZER NEBULIZER VIAL IN TWICE DAILY TWICE DAILY NEBULIZER TWICE DAILY carvedilol carvedilol No carvedilol [facility] 25 mg 25 mg 25 mg Medical tablet TAKE tablet TAKE tablet 1 TABLET BY 1 TABLET BY TAKE 1 MOUTH TWICE MOUTH TWICE TABLET BY DAILY WITH DAILY WITH MOUTH FOOD FOOD TWICE DAILY WITH FOOD cholecalcif cholecalcif No cholecalci [facility] ray ray ferol Medical (vitamin (vitamin (vitamin D3) 12.5 D3) 12.5 D3) 12.5 mcg/5 mL mcg/5 mL mcg/5 mL (500 unit/5 (500 unit/5 (500 mL) oral mL) oral unit/5 mL) liquid GIVE liquid GIVE oral 10ML VIA 10ML VIA liquid GTUBE TWICE GTUBE TWICE GIVE 10ML A DAY A DAY VIA GTUBE TWICE A DAY Dialyvite Dialyvite No Dialyvite [facility] 800 0.8 mg 800 0.8 mg 800 0.8 mg Medical tablet TAKE tablet TAKE tablet 1 TABLET BY 1 TABLET BY TAKE 1 MOUTH ONCE MOUTH ONCE TABLET BY DAILY DAILY MOUTH ONCE DAILY doxycycline doxycycline No 1capsul BID doxycyclin [facility] hyclate 100 hyclate 100 e(s) e hyclate Medical mg capsule mg capsule 100 mg Take 1 Take 1 capsule capsule capsule Take 1 twice a day twice a day capsule by oral by oral twice a route for route for day by 10 days. 10 days. oral route for 10 days. escitalopra escitalopra No escitalopr [facility] m 10 mg m 10 mg am 10 mg Medic al tablet TAKE tablet TAKE tablet 1 TABLET BY 1 TABLET BY TAKE 1 MOUTH ONCE MOUTH ONCE TABLET BY DAILY DAILY MOUTH ONCE DAILY ferrous ferrous No 5mL BID ferrous [facility] sulfate 300 sulfate 300 sulfate Medical mg (60 mg mg (60 mg 300 mg (60 iron)/5 mL iron)/5 mL mg iron)/5 oral liquid oral liquid mL oral Take 5 mL Take 5 mL liquid twice a day twice a day Take 5 mL by oral by oral twice a route. route. day by oral route. first-omepr first-omepr No first-omep [facility] azole azole razole Medical 2mg/ml emre 2mg/ml emre 2mg/ml emre TAKE 10 ML TAKE 10 ML TAKE 10 ML BY MOUTH BY MOUTH BY MOUTH ONCE DAILY ONCE DAILY ONCE DAILY 30 MINUTES 30 MINUTES 30 MINUTES BEFORE BEFORE BEFORE MORNING MORNING MORNING MEAL MEAL MEAL insulin insulin No insulin [facility] glargine glargine glargine Med ical (U-100) 100 (U-100) 100 (U-100) unit/mL (3 unit/mL (3 100 mL) mL) unit/mL (3 subcutaneou subcutaneou mL) s pen s pen subcutaneo Inject 25 Inject 25 us pen units twice units twice Inject 25 a day by a day by units subcutaneou subcutaneou twice a s route. s route. day by subcutaneo us route. insulin insulin No insulin [facility] lispro lispro lispro Medical (U-100) 100 (U-100) 100 (U-100) unit/mL unit/mL 100 subcutaneou subcutaneou unit/mL s pen s pen subcutaneo Inject by Inject by us pen sub-q sub-q Inject by route. route. sub-q route. ipratropium ipratropium No ipratropiu [facility] 0.5 0.5 m 0.5 Medical mg-albutero mg-albutero mg-albuter l 3 mg (2.5 l 3 mg (2.5 ol 3 mg mg base)/3 mg base)/3 (2.5 mg mL mL base)/3 mL nebulizatio nebulizatio nebulizati n soln n soln on soln Inhale 3 mL Inhale 3 mL Inhale 3 every 6 every 6 mL every 6 hours by hours by hours by nebulizatio nebulizatio nebulizati n route as n route as on route needed. needed. as needed. ipratropium ipratropium No ipratropiu [facility] bromide bromide m bromide Medi michelle 0.02 % 0.02 % 0.02 % solution solution solution for for for inhalation inhalation inhalation Inhale 2.5 Inhale 2.5 Inhale 2.5 mL twice a mL twice a mL twice a day by day by day by inhalation inhalation inhalation route. route. route. lactulose lactulose No lactulose [facility] 10 gram/15 10 gram/15 10 gram/15 Medical mL oral mL oral mL oral solution solution solution levothyroxi levothyroxi No levothyrox [facility] ne 25 mcg ne 25 mcg ine 25 mcg Medical tablet TAKE tablet TAKE tablet 1 TABLET BY 1 TABLET BY TAKE 1 MOUTH ONCE MOUTH ONCE TABLET BY DAILY IN DAILY IN MOUTH ONCE THE MORNING THE MORNING DAILY IN ON AN EMPTY ON AN EMPTY THE STOMACH STOMACH MORNING ON AN EMPTY STOMACH nystatin nystatin No nystatin Della via 100,000 100,000 100,000 Medica l unit/gram unit/gram unit/gram topical topical topical ointment ointment ointment omeprazole omeprazole No 1capsul Q1D omeprazole [facility] 10 mg 10 mg e(s) 10 mg Medical capsule,del capsule,del capsule,de ayed ayed layed release release release Take 1 Take 1 Take 1 capsule capsule capsule every day every day every day by oral by oral by oral route for route for route for 30 days. 30 days. 30 days. ondansetron ondansetron No 1 Q8H ondansetro [facility] 4 mg 4 mg n 4 mg Medical disintegrat disintegrat disintegra ing tablet ing tablet ting Place 1 Place [address] 1 every 8 every 8 tablet hours by hours by every 8 oral route oral route hours by as needed. as needed. oral route as needed. potassium potassium No 20milli Q1D potassium [facility] chloride 20 chloride 20 equival chloride Medical mEq/15 mL mEq/15 mL ent(s) 20 mEq/15 oral liquid oral liquid mL oral Take 20 Take 20 liquid milliequiva milliequiva Take 20 lents every lents every milliequiv day by oral day by oral alents route. route. every day by oral route. senna 8.6 senna 8.6 No senna 8.6 [facility] mg tablet mg tablet mg tablet Medical TAKE 1 TAKE 1 TAKE 1 TABLET BY TABLET BY TABLET BY MOUTH ONCE MOUTH ONCE MOUTH ONCE DAILY DAILY DAILY tamsulosin tamsulosin No tamsulosin [facility] 0.4 mg 0.4 mg 0.4 mg [facility] capsule capsule capsule Take 1 Take 1 Take 1 capsule capsule capsule every day every day every day by oral by oral by oral route for route for route for 30 days. 30 days. 30 days. acetaminoph acetaminoph No 1 Q8H acetaminop [facility] en 300 en 300 hen 300 Medical mg-codeine mg-codeine mg-codeine 30 mg 30 mg 30 mg tablet Take tablet Take tablet 1 tablet 1 tablet Take 1 every 8 every 8 tablet hours by hours by every 8 oral route oral route hours by as needed as needed oral route for 10 for 10 as needed days. days. for 10 days. acetylcyste acetylcyste No acetylcyst [facility] ine 100 ine 100 eine 100 Medic al mg/mL (10 mg/mL (10 mg/mL (10 %) solution %) solution %) solution albuterol albuterol No albuterol [facility] sulfate 2.5 sulfate 2.5 sulfate Medical mg/3 mL mg/3 mL 2.5 mg/3 (0.083 %) (0.083 %) mL (0.083 solution solution %) for for solution nebulizatio nebulizatio for n n nebulizati on albuterol albuterol No .5mL BID albuterol [facility] sulfate sulfate sulfate Medica l concentrate concentrate concentrat 2.5 mg/0.5 2.5 mg/0.5 e 2.5 mL solution mL solution mg/0.5 mL for for solution nebulizatio nebulizatio for n Inhale n Inhale nebulizati 0.5 mL 0.5 mL on Inhale twice a day twice a day 0.5 mL by by twice a nebulizatio nebulizatio day by n route. n route. nebulizati on route. amlodipine amlodipine No amlodipine [facility] 10 mg 10 mg 10 mg Medical tablet TAKE tablet TAKE tablet 1 TABLET BY 1 TABLET BY TAKE 1 MOUTH ONCE MOUTH ONCE TABLET BY DAILY DAILY MOUTH ONCE DAILY aspirin 81 aspirin 81 No aspirin 81 [facility] mg mg mg Medical tablet,nina tablet,nina tablet,del yed release yed release ayed TAKE 1 TAKE 1 release TABLET BY TABLET BY TAKE 1 MOUTH ONCE MOUTH ONCE TABLET BY DAILY DAILY MOUTH ONCE DAILY atorvastati atorvastati No atorvastat [facility] n 20 mg n 20 mg in 20 mg Medic al tablet Take tablet Take tablet 1 tablet 1 tablet Take 1 every day every day tablet by oral by oral every day route for route for by oral 30 days. 30 days. route for 30 days. budesonide budesonide No budesonide [facility] 0.5 mg/2 mL 0.5 mg/2 mL 0.5 mg/2 Medical suspension suspension mL for for suspension nebulizatio nebulizatio for n USE 1 n USE 1 nebulizati VIAL IN VIAL IN on USE 1 NEBULIZER NEBULIZER VIAL IN TWICE DAILY TWICE DAILY NEBULIZER TWICE DAILY carvedilol carvedilol No carvedilol [facility] 25 mg 25 mg 25 mg Medical tablet TAKE tablet TAKE tablet 1 TABLET BY 1 TABLET BY TAKE 1 MOUTH TWICE MOUTH TWICE TABLET BY DAILY WITH DAILY WITH MOUTH FOOD FOOD TWICE DAILY WITH FOOD cholecalcif cholecalcif No cholecalci [facility] ray ray ferol Medical (vitamin (vitamin (vitamin D3) 12.5 D3) 12.5 D3) 12.5 mcg/5 mL mcg/5 mL mcg/5 mL (500 unit/5 (500 unit/5 (500 mL) oral mL) oral unit/5 mL) liquid GIVE liquid GIVE oral 10ML VIA 10ML VIA liquid GTUBE TWICE GTUBE TWICE GIVE 10ML A DAY A DAY VIA GTUBE TWICE A DAY Dialyvite Dialyvite No Dialyvite [facility] 800 0.8 mg 800 0.8 mg 800 0.8 mg Medical tablet TAKE tablet TAKE tablet 1 TABLET BY 1 TABLET BY TAKE 1 MOUTH ONCE MOUTH ONCE TABLET BY DAILY DAILY MOUTH ONCE DAILY doxycycline doxycycline No 1capsul BID doxycyclin [facility] hyclate 100 hyclate 100 e(s) e hyclate Medical mg capsule mg capsule 100 mg Take 1 Take 1 capsule capsule capsule Take 1 twice a day twice a day capsule by oral by oral twice a route for route for day by 10 days. 10 days. oral route for 10 days. escitalopra escitalopra No escitalopr [facility] m 10 mg m 10 mg am 10 mg Medic al tablet TAKE tablet TAKE tablet 1 TABLET BY 1 TABLET BY TAKE 1 MOUTH ONCE MOUTH ONCE TABLET BY DAILY DAILY MOUTH ONCE DAILY ferrous ferrous No 5mL BID ferrous [facility] sulfate 300 sulfate 300 sulfate Medical mg (60 mg mg (60 mg 300 mg (60 iron)/5 mL iron)/5 mL mg iron)/5 oral liquid oral liquid mL oral Take 5 mL Take 5 mL liquid twice a day twice a day Take 5 mL by oral by oral twice a route. route. day by oral route. first-omepr first-omepr No first-omep [facility] azole azole razole Medical 2mg/ml emre 2mg/ml emre 2mg/ml emre TAKE 10 ML TAKE 10 ML TAKE 10 ML BY MOUTH BY MOUTH BY MOUTH ONCE DAILY ONCE DAILY ONCE DAILY 30 MINUTES 30 MINUTES 30 MINUTES BEFORE BEFORE BEFORE MORNING MORNING MORNING MEAL MEAL MEAL insulin insulin No insulin [facility] glargine glargine glargine Med ical (U-100) 100 (U-100) 100 (U-100) unit/mL (3 unit/mL (3 100 mL) mL) unit/mL (3 subcutaneou subcutaneou mL) s pen s pen subcutaneo Inject 25 Inject 25 us pen units twice units twice Inject 25 a day by a day by units subcutaneou subcutaneou twice a s route. s route. day by subcutaneo us route. insulin insulin No insulin [facility] lispro lispro lispro Medical (U-100) 100 (U-100) 100 (U-100) unit/mL unit/mL 100 subcutaneou subcutaneou unit/mL s pen s pen subcutaneo Inject by Inject by us pen sub-q sub-q Inject by route. route. sub-q route. ipratropium ipratropium No ipratropiu [facility] 0.5 0.5 m 0.5 Medical mg-albutero mg-albutero mg-albuter l 3 mg (2.5 l 3 mg (2.5 ol 3 mg mg base)/3 mg base)/3 (2.5 mg mL mL base)/3 mL nebulizatio nebulizatio nebulizati n soln n soln on soln Inhale 3 mL Inhale 3 mL Inhale 3 every 6 every 6 mL every 6 hours by hours by hours by nebulizatio nebulizatio nebulizati n route as n route as on route needed. needed. as needed. ipratropium ipratropium No ipratropiu [facility] bromide bromide m bromide [facility]i michelle 0.02 % 0.02 % 0.02 % solution solution solution for for for inhalation inhalation inhalation Inhale 2.5 Inhale 2.5 Inhale 2.5 mL twice a mL twice a mL twice a day by day by day by inhalation inhalation inhalation route. route. route. lactulose lactulose No lactulose [facility] 10 gram/15 10 gram/15 10 gram/15 Medical mL oral mL oral mL oral solution solution solution levothyroxi levothyroxi No levothyrox [facility] ne 25 mcg ne 25 mcg ine 25 mcg Medical tablet TAKE tablet TAKE tablet 1 TABLET BY 1 TABLET BY TAKE 1 MOUTH ONCE MOUTH ONCE TABLET BY DAILY IN DAILY IN MOUTH ONCE THE MORNING THE MORNING DAILY IN ON AN EMPTY ON AN EMPTY THE STOMACH STOMACH MORNING ON AN EMPTY STOMACH nystatin nystatin No nystatin Della via 100,000 100,000 100,000 Medica l unit/gram unit/gram unit/gram topical topical topical ointment ointment ointment omeprazole omeprazole No 1capsul Q1D omeprazole [facility] 10 mg 10 mg e(s) 10 mg Medical capsule,del capsule,del capsule,de ayed ayed layed release release release Take 1 Take 1 Take 1 capsule capsule capsule every day every day every day by oral by oral by oral route for route for route for 30 days. 30 days. 30 days. ondansetron ondansetron No 1 Q8H ondansetro [facility] 4 mg 4 mg n 4 mg Medical disintegrat disintegrat disintegra ing tablet ing tablet ting Place 1 Place [address] 1 every 8 every 8 tablet hours by hours by every 8 oral route oral route hours by as needed. as needed. oral route as needed. potassium potassium No 20milli Q1D potassium [facility] chloride 20 chloride 20 equival chloride Medical mEq/15 mL mEq/15 mL ent(s) 20 mEq/15 oral liquid oral liquid mL oral Take 20 Take 20 liquid milliequiva milliequiva Take 20 lents every lents every milliequiv day by oral day by oral alents route. route. every day by oral route. senna 8.6 senna 8.6 No senna 8.6 [facility] mg tablet mg tablet mg tablet Medical TAKE 1 TAKE 1 TAKE 1 TABLET BY TABLET BY TABLET BY MOUTH ONCE MOUTH ONCE MOUTH ONCE DAILY DAILY DAILY tamsulosin tamsulosin No tamsulosin [facility] 0.4 mg 0.4 mg 0.4 mg Medical capsule capsule capsule Take 1 Take 1 Take 1 capsule capsule capsule every day every day every day by oral by oral by oral route for route for route for 30 days. 30 days. 30 days. acetylcyste acetylcyste No acetylcyst [facility] ine 100 ine 100 eine 100 Medic al mg/mL (10 mg/mL (10 mg/mL (10 %) solution %) solution %) solution albuterol albuterol No albuterol [facility] sulfate 2.5 sulfate 2.5 sulfate Medical mg/3 mL mg/3 mL 2.5 mg/3 (0.083 %) (0.083 %) mL (0.083 solution solution %) for for solution nebulizatio nebulizatio for n n nebulizati on albuterol albuterol No .5mL BID albuterol [facility] sulfate sulfate sulfate Medica l concentrate concentrate concentrat 2.5 mg/0.5 2.5 mg/0.5 e 2.5 mL solution mL solution mg/0.5 mL for for solution nebulizatio nebulizatio for n Inhale n Inhale nebulizati 0.5 mL 0.5 mL on Inhale twice a day twice a day 0.5 mL by by twice a nebulizatio nebulizatio day by n route. n route. nebulizati on route. amlodipine amlodipine No amlodipine [facility] 10 mg 10 mg 10 mg Medical tablet TAKE tablet TAKE tablet 1 TABLET BY 1 TABLET BY TAKE 1 MOUTH ONCE MOUTH ONCE TABLET BY DAILY DAILY MOUTH ONCE DAILY aspirin 81 aspirin 81 No aspirin 81 [facility] mg mg mg Medical tablet,nina tablet,nina tablet,del yed release yed release ayed TAKE 1 TAKE 1 release TABLET BY TABLET BY TAKE 1 MOUTH ONCE MOUTH ONCE TABLET BY DAILY DAILY MOUTH ONCE DAILY atorvastati atorvastati No atorvastat [facility] n 20 mg n 20 mg in 20 mg Medic al tablet Take tablet Take tablet 1 tablet 1 tablet Take 1 every day every day tablet by oral by oral every day route for route for by oral 30 days. 30 days. route for 30 days. budesonide budesonide No budesonide [facility] 0.5 mg/2 mL 0.5 mg/2 mL 0.5 mg/2 Medical suspension suspension mL for for suspension nebulizatio nebulizatio for n USE 1 n USE 1 nebulizati VIAL IN VIAL IN on USE 1 NEBULIZER NEBULIZER VIAL IN TWICE DAILY TWICE DAILY NEBULIZER TWICE DAILY carvedilol carvedilol No carvedilol [facility] 25 mg 25 mg 25 mg Medical tablet TAKE tablet TAKE tablet 1 TABLET BY 1 TABLET BY TAKE 1 MOUTH TWICE MOUTH TWICE TABLET BY DAILY WITH DAILY WITH MOUTH FOOD FOOD TWICE DAILY WITH FOOD cholecalcif cholecalcif No cholecalci [facility] ray ray ferol Medical (vitamin (vitamin (vitamin D3) 12.5 D3) 12.5 D3) 12.5 mcg/5 mL mcg/5 mL mcg/5 mL (500 unit/5 (500 unit/5 (500 mL) oral mL) oral unit/5 mL) liquid GIVE liquid GIVE oral 10ML VIA 10ML VIA liquid GTUBE TWICE GTUBE TWICE GIVE 10ML A DAY A DAY VIA GTUBE TWICE A DAY escitalopra escitalopra No escitalopr [facility] m 10 mg m 10 mg am 10 mg Medic al tablet TAKE tablet TAKE tablet 1 TABLET BY 1 TABLET BY TAKE 1 MOUTH ONCE MOUTH ONCE TABLET BY DAILY DAILY MOUTH ONCE DAILY ferrous ferrous No 5mL BID ferrous [facility] sulfate 300 sulfate 300 sulfate Medical mg (60 mg mg (60 mg 300 mg (60 iron)/5 mL iron)/5 mL mg iron)/5 oral liquid oral liquid mL oral Take 5 mL Take 5 mL liquid twice a day twice a day Take 5 mL by oral by oral twice a route. route. day by oral route. insulin insulin No insulin [facility] lispro lispro lispro Medical (U-100) 100 (U-100) 100 (U-100) unit/mL unit/mL 100 subcutaneou subcutaneou unit/mL s pen s pen subcutaneo Inject by Inject by pen sub-q sub-q Inject by route. route. sub-q route. ipratropium ipratropium No ipratropiu [facility] 0.5 0.5 m 0.5 Medical mg-albutero mg-albutero mg-albuter l 3 mg (2.5 l 3 mg (2.5 ol 3 mg mg base)/3 mg base)/3 (2.5 mg mL mL base)/3 mL nebulizatio nebulizatio nebulizati n soln n soln on soln Inhale 3 mL Inhale 3 mL Inhale 3 every 6 every 6 mL every 6 hours by hours by hours by nebulizatio nebulizatio nebulizati n route as n route as on route needed. needed. as needed. ipratropium ipratropium No ipratropiu [facility] bromide bromide m bromide [facility]i michelle 0.02 % 0.02 % 0.02 % solution solution solution for for for inhalation inhalation inhalation Inhale 2.5 Inhale 2.5 Inhale 2.5 mL twice a mL twice a mL twice a day by day by day by inhalation inhalation inhalation route. route. route. lactulose lactulose No lactulose [facility] 10 gram/15 10 gram/15 10 gram/15 Medical mL oral mL oral mL oral solution solution solution Lantus Lantus No 27unit( BID Lantus [facility] Solostar Solostar s) Solostar Med ical U-100 U-100 U-100 Insulin 100 Insulin 100 Insulin unit/mL (3 unit/mL (3 100 mL) mL) unit/mL (3 subcutaneou subcutaneou mL) s pen s pen subcutaneo Inject 27 Inject 27 us pen units twice units twice Inject 27 a day by a day by units subcutaneou subcutaneou twice a s route. s route. day by subcutaneo us route. levothyroxi levothyroxi No levothyrox [facility] ne 25 mcg ne 25 mcg ine 25 mcg Medical tablet TAKE tablet TAKE tablet 1 TABLET BY 1 TABLET BY TAKE 1 MOUTH ONCE MOUTH ONCE TABLET BY DAILY IN DAILY IN MOUTH ONCE THE MORNING THE MORNING DAILY IN ON AN EMPTY ON AN EMPTY THE STOMACH STOMACH MORNING ON AN EMPTY STOMACH nystatin nystatin No nystatin [facility]ella via 100,000 100,000 100,000 Medica l unit/gram unit/gram unit/gram topical topical topical ointment ointment ointment omeprazole omeprazole No 1capsul Q1D omeprazole [facility] 10 mg 10 mg e(s) 10 mg Medical capsule,del capsule,del capsule,de ayed ayed layed release release release Take 1 Take 1 Take 1 capsule capsule capsule every day every day every day by oral by oral by oral route for route for route for 30 days. 30 days. 30 days. ondansetron ondansetron No 1 Q8H ondansetro [facility] 4 mg 4 mg n 4 mg Medical disintegrat disintegrat disintegra ing tablet ing tablet ting Place 1 Place [address] 1 every 8 every 8 tablet hours by hours by every 8 oral route oral route hours by as needed. as needed. oral route as needed. senna 8.6 senna 8.6 No senna 8.6 [facility] mg tablet mg tablet mg tablet Medical TAKE 1 TAKE 1 TAKE 1 TABLET BY TABLET BY TABLET BY MOUTH ONCE MOUTH ONCE MOUTH ONCE DAILY DAILY DAILY tamsulosin tamsulosin No tamsulosin [facility] 0.4 mg 0.4 mg 0.4 mg Medical capsule capsule capsule Take 1 Take 1 Take 1 capsule capsule capsule every day every day every day by oral by oral by oral route for route for route for 30 days. 30 days. 30 days. acetaminoph acetaminoph No 1 Q8H acetaminop [facility] en 300 en 300 hen 300 Medical mg-codeine mg-codeine mg-codeine 30 mg 30 mg 30 mg tablet Take tablet Take tablet 1 tablet 1 tablet Take 1 every 8 every 8 tablet hours by hours by every 8 oral route oral route hours by as needed as needed oral route for 10 for 10 as needed days. days. for 10 days. acetylcyste acetylcyste No acetylcyst [facility] ine 100 ine 100 eine 100 Medic al mg/mL (10 mg/mL (10 mg/mL (10 %) solution %) solution %) solution albuterol albuterol No albuterol [facility] sulfate 2.5 sulfate 2.5 sulfate Medical mg/3 mL mg/3 mL 2.5 mg/3 (0.083 %) (0.083 %) mL (0.083 solution solution %) for for solution nebulizatio nebulizatio for n n nebulizati on albuterol albuterol No .5mL BID albuterol [facility] sulfate sulfate sulfate Medica l concentrate concentrate concentrat 2.5 mg/0.5 2.5 mg/0.5 e 2.5 mL solution mL solution mg/0.5 mL for for solution nebulizatio nebulizatio for n Inhale n Inhale nebulizati 0.5 mL 0.5 mL on Inhale twice a day twice a day 0.5 mL by by twice a nebulizatio nebulizatio day by n route. n route. nebulizati on route. amlodipine amlodipine No amlodipine [facility] 10 mg 10 mg 10 mg Medical tablet TAKE tablet TAKE tablet 1 TABLET BY 1 TABLET BY TAKE 1 MOUTH ONCE MOUTH ONCE TABLET BY DAILY DAILY MOUTH ONCE DAILY aspirin 81 aspirin 81 No aspirin 81 [facility] mg mg mg Medical tablet,nina tablet,nina tablet,del yed release yed release ayed TAKE 1 TAKE 1 release TABLET BY TABLET BY TAKE 1 MOUTH ONCE MOUTH ONCE TABLET BY DAILY DAILY MOUTH ONCE DAILY acetylcyste acetylcyste No acetylcyst [facility] ine 100 ine 100 eine 100 Medic al mg/mL (10 mg/mL (10 mg/mL (10 %) solution %) solution %) solution atorvastati atorvastati No atorvastat [facility] n 20 mg n 20 mg in 20 mg Medic al tablet Take tablet Take tablet 1 tablet 1 tablet Take 1 every day every day tablet by oral by oral every day route for route for by oral 30 days. 30 days. route for 30 days. budesonide budesonide No budesonide [facility] 0.5 mg/2 mL 0.5 mg/2 mL 0.5 mg/2 Medical suspension suspension mL for for suspension nebulizatio nebulizatio for n USE 1 n USE 1 nebulizati VIAL IN VIAL IN on USE 1 NEBULIZER NEBULIZER VIAL IN TWICE DAILY TWICE DAILY NEBULIZER TWICE DAILY carvedilol carvedilol No carvedilol [facility] 25 mg 25 mg 25 mg Medical tablet TAKE tablet TAKE tablet 1 TABLET BY 1 TABLET BY TAKE 1 MOUTH TWICE MOUTH TWICE TABLET BY DAILY WITH DAILY WITH MOUTH FOOD FOOD TWICE DAILY WITH FOOD cholecalcif cholecalcif No cholecalci [facility] ray ray ferol Medical (vitamin (vitamin (vitamin D3) 12.5 D3) 12.5 D3) 12.5 mcg/5 mL mcg/5 mL mcg/5 mL (500 unit/5 (500 unit/5 (500 mL) oral mL) oral unit/5 mL) liquid GIVE liquid GIVE oral 10ML VIA 10ML VIA liquid GTUBE TWICE GTUBE TWICE GIVE 10ML A DAY A DAY VIA GTUBE TWICE A DAY escitalopra escitalopra No escitalopr [facility] m 10 mg m 10 mg am 10 mg Medic al tablet TAKE tablet TAKE tablet 1 TABLET BY 1 TABLET BY TAKE 1 MOUTH ONCE MOUTH ONCE TABLET BY DAILY DAILY MOUTH ONCE DAILY ferrous ferrous No 5mL BID ferrous [facility] sulfate 300 sulfate 300 sulfate Medical mg (60 mg mg (60 mg 300 mg (60 iron)/5 mL iron)/5 mL mg iron)/5 oral liquid oral liquid mL oral Take 5 mL Take 5 mL liquid twice a day twice a day Take 5 mL by oral by oral twice a route. route. day by oral route. insulin insulin No insulin [facility] lispro lispro lispro Medical (U-100) 100 (U-100) 100 (U-100) unit/mL unit/mL 100 subcutaneou subcutaneou unit/mL s pen s pen subcutaneo Inject by Inject by us pen sub-q sub-q Inject by route. route. sub-q route. ipratropium ipratropium No ipratropiu [facility] 0.5 0.5 m 0.5 Medical mg-albutero mg-albutero mg-albuter l 3 mg (2.5 l 3 mg (2.5 ol 3 mg mg base)/3 mg base)/3 (2.5 mg mL mL base)/3 mL nebulizatio nebulizatio nebulizati n soln n soln on soln Inhale 3 mL Inhale 3 mL Inhale 3 every 6 every 6 mL every 6 hours by hours by hours by nebulizatio nebulizatio nebulizati n route as n route as on route needed. needed. as needed. ipratropium ipratropium No ipratropiu [facility] bromide bromide m bromide Medi michelle 0.02 % 0.02 % 0.02 % solution solution solution for for for inhalation inhalation inhalation Inhale 2.5 Inhale 2.5 Inhale 2.5 mL twice a mL twice a mL twice a day by day by day by inhalation inhalation inhalation route. route. route. lactulose lactulose No lactulose [facility] 10 gram/15 10 gram/15 10 gram/15 Medical mL oral mL oral mL oral solution solution solution albuterol albuterol No .5mL BID albuterol [facility] sulfate sulfate sulfate Medica l concentrate concentrate concentrat 2.5 mg/0.5 2.5 mg/0.5 e 2.5 mL solution mL solution mg/0.5 mL for for solution nebulizatio nebulizatio for n Inhale n Inhale nebulizati 0.5 mL 0.5 mL on Inhale twice a day twice a day 0.5 mL by by twice a nebulizatio nebulizatio day by n route. n route. nebulizati on route. Lantus Lantus No 27unit( BID Lantus [facility] Solostar Solostar s) Solostar Med ical U-100 U-100 U-100 Insulin 100 Insulin 100 Insulin unit/mL (3 unit/mL (3 100 mL) mL) unit/mL (3 subcutaneou subcutaneou mL) s pen s pen subcutaneo Inject 27 Inject 27 us pen units twice units twice Inject 27 a day by a day by units subcutaneou subcutaneou twice a s route. s route. day by subcutaneo us route. levothyroxi levothyroxi No levothyrox [facility] ne 25 mcg ne 25 mcg ine 25 mcg Medical tablet TAKE tablet TAKE tablet 1 TABLET BY 1 TABLET BY TAKE 1 MOUTH ONCE MOUTH ONCE TABLET BY DAILY IN DAILY IN MOUTH ONCE THE MORNING THE MORNING DAILY IN ON AN EMPTY ON AN EMPTY THE STOMACH STOMACH MORNING ON AN EMPTY STOMACH nystatin nystatin No nystatin Della via 100,000 100,000 100,000 Medica l unit/gram unit/gram unit/gram topical topical topical ointment ointment ointment omeprazole omeprazole No 1capsul Q1D omeprazole [facility] 10 mg 10 mg e(s) 10 mg Medical capsule,del capsule,del capsule,de ayed ayed layed release release release Take 1 Take 1 Take 1 capsule capsule capsule every day every day every day by oral by oral by oral route for route for route for 30 days. 30 days. 30 days. ondansetron ondansetron No 1 Q8H ondansetro [facility] 4 mg 4 mg n 4 mg Medical disintegrat disintegrat disintegra ing tablet ing tablet ting Place 1 Place [address] 1 every 8 every 8 tablet hours by hours by every 8 oral route oral route hours by as needed. as needed. oral route as needed. senna 8.6 senna 8.6 No senna 8.6 [facility] mg tablet mg tablet mg tablet Medical TAKE 1 TAKE 1 TAKE 1 TABLET BY TABLET BY TABLET BY MOUTH ONCE MOUTH ONCE MOUTH ONCE DAILY DAILY DAILY tamsulosin tamsulosin No tamsulosin [facility] 0.4 mg 0.4 mg 0.4 mg Medical capsule capsule capsule Take 1 Take 1 Take 1 capsule capsule capsule every day every day every day by oral by oral by oral route for route for route for 30 days. 30 days. 30 days. amlodipine amlodipine No amlodipine [facility] 10 mg 10 mg 10 mg Medical tablet TAKE tablet TAKE tablet 1 TABLET BY 1 TABLET BY TAKE 1 MOUTH ONCE MOUTH ONCE TABLET BY DAILY DAILY MOUTH ONCE DAILY acetylcyste acetylcyste No acetylcyst [facility] ine 100 ine 100 eine 100 Medic al mg/mL (10 mg/mL (10 mg/mL (10 %) solution %) solution %) solution albuterol albuterol No albuterol [facility] sulfate 2.5 sulfate 2.5 sulfate Medical mg/3 mL mg/3 mL 2.5 mg/3 (0.083 %) (0.083 %) mL (0.083 solution solution %) for for solution nebulizatio nebulizatio for n n nebulizati on albuterol albuterol No .5mL BID albuterol [facility] sulfate sulfate sulfate Medica l concentrate concentrate concentrat 2.5 mg/0.5 2.5 mg/0.5 e 2.5 mL solution mL solution mg/0.5 mL for for solution nebulizatio nebulizatio for n Inhale n Inhale nebulizati 0.5 mL 0.5 mL on Inhale twice a day twice a day 0.5 mL by by twice a nebulizatio nebulizatio day by n route. n route. nebulizati on route. amlodipine amlodipine No amlodipine [facility] 10 mg 10 mg 10 mg Medical tablet TAKE tablet TAKE tablet 1 TABLET BY 1 TABLET BY TAKE 1 MOUTH ONCE MOUTH ONCE TABLET BY DAILY DAILY MOUTH ONCE DAILY aspirin 81 aspirin 81 No aspirin 81 [facility] mg mg mg Medical tablet,nina tablet,nina tablet,del yed release yed release ayed TAKE 1 TAKE 1 release TABLET BY TABLET BY TAKE 1 MOUTH ONCE MOUTH ONCE TABLET BY DAILY DAILY MOUTH ONCE DAILY atorvastati atorvastati No atorvastat [facility] n 20 mg n 20 mg in 20 mg Medic al tablet Take tablet Take tablet 1 tablet 1 tablet Take 1 every day every day tablet by oral by oral every day route for route for by oral 30 days. 30 days. route for 30 days. aspirin 81 aspirin 81 No aspirin 81 [facility] mg mg mg Medical tablet,nina tablet,nina tablet,del yed release yed release ayed TAKE 1 TAKE 1 release TABLET BY TABLET BY TAKE 1 MOUTH ONCE MOUTH ONCE TABLET BY DAILY DAILY MOUTH ONCE DAILY budesonide budesonide No budesonide [facility] 0.5 mg/2 mL 0.5 mg/2 mL 0.5 mg/2 Medical suspension suspension mL for for suspension nebulizatio nebulizatio for n USE 1 n USE 1 nebulizati VIAL IN VIAL IN on USE 1 NEBULIZER NEBULIZER VIAL IN TWICE DAILY TWICE DAILY NEBULIZER TWICE DAILY carvedilol carvedilol No carvedilol [facility] 25 mg 25 mg 25 mg Medical tablet TAKE tablet TAKE tablet 1 TABLET BY 1 TABLET BY TAKE 1 MOUTH TWICE MOUTH TWICE TABLET BY DAILY WITH DAILY WITH MOUTH FOOD FOOD TWICE DAILY WITH FOOD cholecalcif cholecalcif No cholecalci [facility] ray ray ferol Medical (vitamin (vitamin (vitamin D3) 12.5 D3) 12.5 D3) 12.5 mcg/5 mL mcg/5 mL mcg/5 mL (500 unit/5 (500 unit/5 (500 mL) oral mL) oral unit/5 mL) liquid GIVE liquid GIVE oral 10ML VIA 10ML VIA liquid GTUBE TWICE GTUBE TWICE GIVE 10ML A DAY A DAY VIA GTUBE TWICE A DAY escitalopra escitalopra No escitalopr [facility] m 10 mg m 10 mg am 10 mg Medic al tablet TAKE tablet TAKE tablet 1 TABLET BY 1 TABLET BY TAKE 1 MOUTH ONCE MOUTH ONCE TABLET BY DAILY DAILY MOUTH ONCE DAILY ferrous ferrous No 5mL BID ferrous [facility] sulfate 300 sulfate 300 sulfate Medical mg (60 mg mg (60 mg 300 mg (60 iron)/5 mL iron)/5 mL mg iron)/5 oral liquid oral liquid mL oral Take 5 mL Take 5 mL liquid twice a day twice a day Take 5 mL by oral by oral twice a route. route. day by oral route. insulin insulin No insulin [facility] lispro lispro lispro Medical (U-100) 100 (U-100) 100 (U-100) unit/mL unit/mL 100 subcutaneou subcutaneou unit/mL s pen s pen subcutaneo Inject by Inject by pen sub-q sub-q Inject by route. route. sub-q route. ipratropium ipratropium No ipratropiu [facility] 0.5 0.5 m 0.5 Medical mg-albutero mg-albutero mg-albuter l 3 mg (2.5 l 3 mg (2.5 ol 3 mg mg base)/3 mg base)/3 (2.5 mg mL mL base)/3 mL nebulizatio nebulizatio nebulizati n soln n soln on soln Inhale 3 mL Inhale 3 mL Inhale 3 every 6 every 6 mL every 6 hours by hours by hours by nebulizatio nebulizatio nebulizati n route as n route as on route needed. needed. as needed. ipratropium ipratropium No ipratropiu [facility] bromide bromide m bromide Medi michelle 0.02 % 0.02 % 0.02 % solution solution solution for for for inhalation inhalation inhalation Inhale 2.5 Inhale 2.5 Inhale 2.5 mL twice a mL twice a mL twice a day by day by day by inhalation inhalation inhalation route. route. route. lactulose lactulose No lactulose [facility] 10 gram/15 10 gram/15 10 gram/15 Medical mL oral mL oral mL oral solution solution solution Lantus Lantus No 27unit( BID Lantus [facility] Solostar Solostar s) Solostar Med ical U-100 U-100 U-100 Insulin 100 Insulin 100 Insulin unit/mL (3 unit/mL (3 100 mL) mL) unit/mL (3 subcutaneou subcutaneou mL) s pen s pen subcutaneo Inject 27 Inject 27 us pen units twice units twice Inject 27 a day by a day by units subcutaneou subcutaneou twice a s route. s route. day by subcutaneo us route. atorvastati atorvastati No 1 Q1D atorvastat [facility] n 20 mg n 20 mg in 20 mg Medic al tablet Take tablet Take tablet 1 tablet 1 tablet Take 1 every day every day tablet by oral by oral every day route for route for by oral 30 days. 30 days. route for 30 days. levothyroxi levothyroxi No levothyrox [facility] ne 25 mcg ne 25 mcg ine 25 mcg Medical tablet TAKE tablet TAKE tablet 1 TABLET BY 1 TABLET BY TAKE 1 MOUTH ONCE MOUTH ONCE TABLET BY DAILY IN DAILY IN MOUTH ONCE THE MORNING THE MORNING DAILY IN ON AN EMPTY ON AN EMPTY THE STOMACH STOMACH MORNING ON AN EMPTY STOMACH nystatin nystatin No nystatin Della via 100,000 100,000 100,000 Medica l unit/gram unit/gram unit/gram topical topical topical ointment ointment ointment omeprazole omeprazole No 1capsul Q1D omeprazole [facility] 10 mg 10 mg e(s) 10 mg Medical capsule,del capsule,del capsule,de ayed ayed layed release release release Take 1 Take 1 Take 1 capsule capsule capsule every day every day every day by oral by oral by oral route for route for route for 30 days. 30 days. 30 days. ondansetron ondansetron No 1 Q8H ondansetro [facility] 4 mg 4 mg n 4 mg Medical disintegrat disintegrat disintegra ing tablet ing tablet ting Place 1 Place [address] 1 every 8 every 8 tablet hours by hours by every 8 oral route oral route hours by as needed. as needed. oral route as needed. senna 8.6 senna 8.6 No senna 8.6 [facility] mg tablet mg tablet mg tablet Medical TAKE 1 TAKE 1 TAKE 1 TABLET BY TABLET BY TABLET BY MOUTH ONCE MOUTH ONCE MOUTH ONCE DAILY DAILY DAILY tamsulosin tamsulosin No tamsulosin [facility] 0.4 mg 0.4 mg 0.4 mg Medical capsule capsule capsule Take 1 Take 1 Take 1 capsule capsule capsule every day every day every day by oral by oral by oral route for route for route for 30 days. 30 days. 30 days. budesonide budesonide No budesonide [facility] 0.5 mg/2 mL 0.5 mg/2 mL 0.5 mg/2 Medical suspension suspension mL for for suspension nebulizatio nebulizatio for n USE 1 n USE 1 nebulizati VIAL IN VIAL IN on USE 1 NEBULIZER NEBULIZER VIAL IN TWICE DAILY TWICE DAILY NEBULIZER TWICE DAILY carvedilol carvedilol No carvedilol [facility] 25 mg 25 mg 25 mg Medical tablet TAKE tablet TAKE tablet 1 TABLET BY 1 TABLET BY TAKE 1 MOUTH TWICE MOUTH TWICE TABLET BY DAILY WITH DAILY WITH MOUTH FOOD FOOD TWICE DAILY WITH FOOD Dialyvite Dialyvite No Dialyvite [facility] 800 0.8 mg 800 0.8 mg 800 0.8 mg Medical tablet TAKE tablet TAKE tablet 1 TABLET BY 1 TABLET BY TAKE 1 MOUTH ONCE MOUTH ONCE TABLET BY DAILY DAILY MOUTH ONCE DAILY escitalopra escitalopra No escitalopr [facility] m 10 mg m 10 mg am 10 mg Medic al tablet TAKE tablet TAKE tablet 1 TABLET BY 1 TABLET BY TAKE 1 MOUTH ONCE MOUTH ONCE TABLET BY DAILY DAILY MOUTH ONCE DAILY ferrous ferrous No 5mL BID ferrous [facility] sulfate 300 sulfate 300 sulfate Medical mg (60 mg mg (60 mg 300 mg (60 iron)/5 mL iron)/5 mL mg iron)/5 oral liquid oral liquid mL oral Take 5 mL Take 5 mL liquid twice a day twice a day Take 5 mL by oral by oral twice a route. route. day by oral route. acetylcyste acetylcyste No acetylcyst [facility] ine 100 ine 100 eine 100 Medic al mg/mL (10 mg/mL (10 mg/mL (10 %) solution %) solution %) solution albuterol albuterol No albuterol [facility] sulfate 2.5 sulfate 2.5 sulfate Medical mg/3 mL mg/3 mL 2.5 mg/3 (0.083 %) (0.083 %) mL (0.083 solution solution %) for for solution nebulizatio nebulizatio for n n nebulizati on albuterol albuterol No .5mL BID albuterol [facility] sulfate sulfate sulfate Medica l concentrate concentrate concentrat 2.5 mg/0.5 2.5 mg/0.5 e 2.5 mL solution mL solution mg/0.5 mL for for solution nebulizatio nebulizatio for n Inhale n Inhale nebulizati 0.5 mL 0.5 mL on Inhale twice a day twice a day 0.5 mL by by twice a nebulizatio nebulizatio day by n route. n route. nebulizati on route. amlodipine amlodipine No amlodipine [facility] 10 mg 10 mg 10 mg Medical tablet TAKE tablet TAKE tablet 1 TABLET BY 1 TABLET BY TAKE 1 MOUTH ONCE MOUTH ONCE TABLET BY DAILY DAILY MOUTH ONCE DAILY aspirin 81 aspirin 81 No aspirin 81 [facility] mg mg mg Medical tablet,nina tablet,nina tablet,del yed release yed release ayed TAKE 1 TAKE 1 release TABLET BY TABLET BY TAKE 1 MOUTH ONCE MOUTH ONCE TABLET BY DAILY DAILY MOUTH ONCE DAILY atorvastati atorvastati No atorvastat [facility] n 20 mg n 20 mg in 20 mg Medic al tablet Take tablet Take tablet 1 tablet 1 tablet Take 1 every day every day tablet by oral by oral every day route for route for by oral 30 days. 30 days. route for 30 days. budesonide budesonide No budesonide [facility] 0.5 mg/2 mL 0.5 mg/2 mL 0.5 mg/2 Medical suspension suspension mL for for suspension nebulizatio nebulizatio for n USE 1 n USE 1 nebulizati VIAL IN VIAL IN on USE 1 NEBULIZER NEBULIZER VIAL IN TWICE DAILY TWICE DAILY NEBULIZER TWICE DAILY carvedilol carvedilol No carvedilol [facility] 25 mg 25 mg 25 mg Medical tablet TAKE tablet TAKE tablet 1 TABLET BY 1 TABLET BY TAKE 1 MOUTH TWICE MOUTH TWICE TABLET BY DAILY WITH DAILY WITH MOUTH FOOD FOOD TWICE DAILY WITH FOOD first-omepr first-omepr No first-omep [facility] azole azole razole Medical 2mg/ml emre 2mg/ml emre 2mg/ml emre TAKE 10 ML TAKE 10 ML TAKE 10 ML BY MOUTH BY MOUTH BY MOUTH ONCE DAILY ONCE DAILY ONCE DAILY 30 MINUTES 30 MINUTES 30 MINUTES BEFORE BEFORE BEFORE MORNING MORNING MORNING MEAL MEAL MEAL cholecalcif cholecalcif No cholecalci [facility] ary ray ferol Medical (vitamin (vitamin (vitamin D3) 12.5 D3) 12.5 D3) 12.5 mcg/5 mL mcg/5 mL mcg/5 mL (500 unit/5 (500 unit/5 (500 mL) oral mL) oral unit/5 mL) liquid GIVE liquid GIVE oral 10ML VIA 10ML VIA liquid GTUBE TWICE GTUBE TWICE GIVE 10ML A DAY A DAY VIA GTUBE TWICE A DAY escitalopra escitalopra No escitalopr [facility] m 10 mg m 10 mg am 10 mg Medic al tablet TAKE tablet TAKE tablet 1 TABLET BY 1 TABLET BY TAKE 1 MOUTH ONCE MOUTH ONCE TABLET BY DAILY DAILY MOUTH ONCE DAILY ferrous ferrous No 5mL BID ferrous [facility] sulfate 300 sulfate 300 sulfate Medical mg (60 mg mg (60 mg 300 mg (60 iron)/5 mL iron)/5 mL mg iron)/5 oral liquid oral liquid mL oral Take 5 mL Take 5 mL liquid twice a day twice a day Take 5 mL by oral by oral twice a route. route. day by oral route. insulin insulin No insulin [facility] lispro lispro lispro Medical (U-100) 100 (U-100) 100 (U-100) unit/mL unit/mL 100 subcutaneou subcutaneou unit/mL s pen s pen subcutaneo Inject by Inject by us pen sub-q sub-q Inject by route. route. sub-q route. ipratropium ipratropium No ipratropiu [facility] 0.5 0.5 m 0.5 Medical mg-albutero mg-albutero mg-albuter l 3 mg (2.5 l 3 mg (2.5 ol 3 mg mg base)/3 mg base)/3 (2.5 mg mL mL base)/3 mL nebulizatio nebulizatio nebulizati n soln n soln on soln Inhale 3 mL Inhale 3 mL Inhale 3 every 6 every 6 mL every 6 hours by hours by hours by nebulizatio nebulizatio nebulizati n route as n route as on route needed. needed. as needed. ipratropium ipratropium No ipratropiu [facility] bromide bromide m bromide [facility] 0.02 % 0.02 % 0.02 % solution solution solution for for for inhalation inhalation inhalation Inhale 2.5 Inhale 2.5 Inhale 2.5 mL twice a mL twice a mL twice a day by day by day by inhalation inhalation inhalation route. route. route. lactulose lactulose No lactulose [facility] 10 gram/15 10 gram/15 10 gram/15 Medical mL oral mL oral mL oral solution solution solution Lantus Lantus No 27unit( BID Lantus [facility] Solostar Solostar s) Solostar Med ical U-100 U-100 U-100 Insulin 100 Insulin 100 Insulin unit/mL (3 unit/mL (3 100 mL) mL) unit/mL (3 subcutaneou subcutaneou mL) s pen s pen subcutaneo Inject 27 Inject 27 us pen units twice units twice Inject 27 a day by a day by units subcutaneou subcutaneou twice a s route. s route. day by subcutaneo us route. levothyroxi levothyroxi No levothyrox [facility] ne 25 mcg ne 25 mcg ine 25 mcg Medical tablet TAKE tablet TAKE tablet 1 TABLET BY 1 TABLET BY TAKE 1 MOUTH ONCE MOUTH ONCE TABLET BY DAILY IN DAILY IN MOUTH ONCE THE MORNING THE MORNING DAILY IN ON AN EMPTY ON AN EMPTY THE STOMACH STOMACH MORNING ON AN EMPTY STOMACH nystatin nystatin No nystatin Della via 100,000 100,000 100,000 Medica l unit/gram unit/gram unit/gram topical topical topical ointment ointment ointment insulin insulin No 25unit( BID insulin Della via glargine glargine s) glargine Med ical (U-100) 100 (U-100) 100 (U-100) unit/mL (3 unit/mL (3 100 mL) mL) unit/mL (3 subcutaneou subcutaneou mL) s pen s pen subcutaneo Inject 25 Inject 25 us pen units twice units twice Inject 25 a day by a day by units subcutaneou subcutaneou twice a s route. s route. day by subcutaneo us route. omeprazole omeprazole No 1capsul Q1D omeprazole [facility] 10 mg 10 mg e(s) 10 mg Medical capsule,del capsule,del capsule,de ayed ayed layed release release release Take 1 Take 1 Take 1 capsule capsule capsule every day every day every day by oral by oral by oral route for route for route for 30 days. 30 days. 30 days. ondansetron ondansetron No 1 Q8H ondansetro [facility] 4 mg 4 mg n 4 mg Medical disintegrat disintegrat disintegra ing tablet ing tablet ting Place 1 Place [address] 1 every 8 every 8 tablet hours by hours by every 8 oral route oral route hours by as needed. as needed. oral route as needed. senna 8.6 senna 8.6 No senna 8.6 [facility] mg tablet mg tablet mg tablet Medical TAKE 1 TAKE 1 TAKE 1 TABLET BY TABLET BY TABLET BY MOUTH ONCE MOUTH ONCE MOUTH ONCE DAILY DAILY DAILY tamsulosin tamsulosin No tamsulosin [facility] 0.4 mg 0.4 mg 0.4 mg Medical capsule capsule capsule Take 1 Take 1 Take 1 capsule capsule capsule every day every day every day by oral by oral by oral route for route for route for 30 days. 30 days. 30 days. insulin insulin No insulin [facility] lispro lispro lispro Medical (U-100) 100 (U-100) 100 (U-100) unit/mL unit/mL 100 subcutaneou subcutaneou unit/mL s pen per s pen per subcutaneo sliding sliding us pen per scale scale sliding scale ipratropium ipratropium No 3mL Q6H ipratropiu [facility] 0.5 0.5 m 0.5 Medical mg-albutero mg-albutero mg-albuter l 3 mg (2.5 l 3 mg (2.5 ol 3 mg mg base)/3 mg base)/3 (2.5 mg mL mL base)/3 mL nebulizatio nebulizatio nebulizati n soln n soln on soln Inhale 3 mL Inhale 3 mL Inhale 3 every 6 every 6 mL every 6 hours by hours by hours by nebulizatio nebulizatio nebulizati n route as n route as on route needed. needed. as needed. ipratropium ipratropium No 2.5mL BID ipratropiu [facility] bromide bromide m bromide [facility] michelle 0.02 % 0.02 % 0.02 % solution solution solution for for for inhalation inhalation inhalation Inhale 2.5 Inhale 2.5 Inhale 2.5 mL twice a mL twice a mL twice a day by day by day by inhalation inhalation inhalation route. route. route. acetylcyste acetylcyste No acetylcyst [facility] ine 100 ine 100 eine 100 Medic al mg/mL (10 mg/mL (10 mg/mL (10 %) solution %) solution %) solution albuterol albuterol No albuterol [facility] sulfate 2.5 sulfate 2.5 sulfate Medical mg/3 mL mg/3 mL 2.5 mg/3 (0.083 %) (0.083 %) mL (0.083 solution solution %) for for solution nebulizatio nebulizatio for n n nebulizati on albuterol albuterol No .5mL BID albuterol [facility] sulfate sulfate sulfate Medica l concentrate concentrate concentrat 2.5 mg/0.5 2.5 mg/0.5 e 2.5 mL solution mL solution mg/0.5 mL for for solution nebulizatio nebulizatio for n Inhale n Inhale nebulizati 0.5 mL 0.5 mL on Inhale twice a day twice a day 0.5 mL by by twice a nebulizatio nebulizatio day by n route. n route. nebulizati on route. amlodipine amlodipine No amlodipine [facility] 10 mg 10 mg 10 mg Medical tablet TAKE tablet TAKE tablet 1 TABLET BY 1 TABLET BY TAKE 1 MOUTH ONCE MOUTH ONCE TABLET BY DAILY DAILY MOUTH ONCE DAILY aspirin 81 aspirin 81 No aspirin 81 [facility] mg mg mg Medical tablet,nina tablet,nina tablet,del yed release yed release ayed TAKE 1 TAKE 1 release TABLET BY TABLET BY TAKE 1 MOUTH ONCE MOUTH ONCE TABLET BY DAILY DAILY MOUTH ONCE DAILY atorvastati atorvastati No atorvastat [facility] n 20 mg n 20 mg in 20 mg Medic al tablet Take tablet Take tablet 1 tablet 1 tablet Take 1 every day every day tablet by oral by oral every day route for route for by oral 30 days. 30 days. route for 30 days. budesonide budesonide No budesonide [facility] 0.5 mg/2 mL 0.5 mg/2 mL 0.5 mg/2 Medical suspension suspension mL for for suspension nebulizatio nebulizatio for n USE 1 n USE 1 nebulizati VIAL IN VIAL IN on USE 1 NEBULIZER NEBULIZER VIAL IN TWICE DAILY TWICE DAILY NEBULIZER TWICE DAILY carvedilol carvedilol No carvedilol [facility] 25 mg 25 mg 25 mg Medical tablet TAKE tablet TAKE tablet 1 TABLET BY 1 TABLET BY TAKE 1 MOUTH TWICE MOUTH TWICE TABLET BY DAILY WITH DAILY WITH MOUTH FOOD FOOD TWICE DAILY WITH FOOD cholecalcif cholecalcif No cholecalci [facility] ray ray ferol Medical (vitamin (vitamin (vitamin D3) 12.5 D3) 12.5 D3) 12.5 mcg/5 mL mcg/5 mL mcg/5 mL (500 unit/5 (500 unit/5 (500 mL) oral mL) oral unit/5 mL) liquid GIVE liquid GIVE oral 10ML VIA 10ML VIA liquid GTUBE TWICE GTUBE TWICE GIVE 10ML A DAY A DAY VIA GTUBE TWICE A DAY escitalopra escitalopra No escitalopr [facility] m 10 mg m 10 mg am 10 mg Medic al tablet TAKE tablet TAKE tablet 1 TABLET BY 1 TABLET BY TAKE 1 MOUTH ONCE MOUTH ONCE TABLET BY DAILY DAILY MOUTH ONCE DAILY lactulose lactulose No lactulose [facility] 10 gram/15 10 gram/15 10 gram/15 Medical mL oral mL oral mL oral solution solution solution ferrous ferrous No 5mL BID ferrous [facility] sulfate 300 sulfate 300 sulfate Medical mg (60 mg mg (60 mg 300 mg (60 iron)/5 mL iron)/5 mL mg iron)/5 oral liquid oral liquid mL oral Take 5 mL Take 5 mL liquid twice a day twice a day Take 5 mL by oral by oral twice a route. route. day by oral route. insulin insulin No insulin [facility] lispro lispro lispro Medical (U-100) 100 (U-100) 100 (U-100) unit/mL unit/mL 100 subcutaneou subcutaneou unit/mL s pen s pen subcutaneo Inject by Inject by us pen sub-q sub-q Inject by route. route. sub-q route. ipratropium ipratropium No ipratropiu [facility] 0.5 0.5 m 0.5 Medical mg-albutero mg-albutero mg-albuter l 3 mg (2.5 l 3 mg (2.5 ol 3 mg mg base)/3 mg base)/3 (2.5 mg mL mL base)/3 mL nebulizatio nebulizatio nebulizati n soln n soln on soln Inhale 3 mL Inhale 3 mL Inhale 3 every 6 every 6 mL every 6 hours by hours by hours by nebulizatio nebulizatio nebulizati n route as n route as on route needed. needed. as needed. ipratropium ipratropium No ipratropiu [facility] bromide bromide m bromide [facility] michelle 0.02 % 0.02 % 0.02 % solution solution solution for for for inhalation inhalation inhalation Inhale 2.5 Inhale 2.5 Inhale 2.5 mL twice a mL twice a mL twice a day by day by day by inhalation inhalation inhalation route. route. route. lactulose lactulose No lactulose [facility] 10 gram/15 10 gram/15 10 gram/15 Medical mL oral mL oral mL oral solution solution solution Lantus Lantus No 27unit( BID Lantus [facility] Solostar Solostar s) Solostar Med ical U-100 U-100 U-100 Insulin 100 Insulin 100 Insulin unit/mL (3 unit/mL (3 100 mL) mL) unit/mL (3 subcutaneou subcutaneou mL) s pen s pen subcutaneo Inject 27 Inject 27 us pen units twice units twice Inject 27 a day by a day by units subcutaneou subcutaneou twice a s route. s route. day by subcutaneo us route. levothyroxi levothyroxi No levothyrox [facility] ne 25 mcg ne 25 mcg ine 25 mcg Medical tablet TAKE tablet TAKE tablet 1 TABLET BY 1 TABLET BY TAKE 1 MOUTH ONCE MOUTH ONCE TABLET BY DAILY IN DAILY IN MOUTH ONCE THE MORNING THE MORNING DAILY IN ON AN EMPTY ON AN EMPTY THE STOMACH STOMACH MORNING ON AN EMPTY STOMACH nystatin nystatin No nystatin Della via 100,000 100,000 100,000 Medica l unit/gram unit/gram unit/gram topical topical topical ointment ointment ointment omeprazole omeprazole No 1capsul Q1D omeprazole [facility] 10 mg 10 mg e(s) 10 mg Medical capsule,del capsule,del capsule,de ayed ayed layed release release release Take 1 Take 1 Take 1 capsule capsule capsule every day every day every day by oral by oral by oral route for route for route for 30 days. 30 days. 30 days. ondansetron ondansetron No 1 Q8H ondansetro [facility] 4 mg 4 mg n 4 mg Medical disintegrat disintegrat disintegra ing tablet ing tablet ting Place 1 Place [address] 1 every 8 every 8 tablet hours by hours by every 8 oral route oral route hours by as needed. as needed. oral route as needed. levothyroxi levothyroxi No levothyrox [facility] ne 25 mcg ne 25 mcg ine 25 mcg Medical tablet TAKE tablet TAKE tablet 1 TABLET BY 1 TABLET BY TAKE 1 MOUTH ONCE MOUTH ONCE TABLET BY DAILY IN DAILY IN MOUTH ONCE THE MORNING THE MORNING DAILY IN ON AN EMPTY ON AN EMPTY THE STOMACH STOMACH MORNING ON AN EMPTY STOMACH senna 8.6 senna 8.6 No senna 8.6 [facility] mg tablet mg tablet mg tablet Medical TAKE 1 TAKE 1 TAKE 1 TABLET BY TABLET BY TABLET BY MOUTH ONCE MOUTH ONCE MOUTH ONCE DAILY DAILY DAILY tamsulosin tamsulosin No tamsulosin [facility] 0.4 mg 0.4 mg 0.4 mg Medical capsule capsule capsule Take 1 Take 1 Take 1 capsule capsule capsule every day every day every day by oral by oral by oral route for route for route for 30 days. 30 days. 30 days. ondansetron ondansetron No 1 Q8H ondansetro [facility] HCl 4 mg HCl 4 mg n HCl 4 mg M edical tablet Take tablet Take tablet 1 tablet 1 tablet Take 1 every 8 every 8 tablet hours by hours by every 8 oral route oral route hours by as needed. as needed. oral route as needed. senna 8.6 senna 8.6 No senna 8.6 [facility] mg tablet mg tablet mg tablet Medical TAKE 1 TAKE 1 TAKE 1 TABLET BY TABLET BY TABLET BY MOUTH ONCE MOUTH ONCE MOUTH ONCE DAILY DAILY DAILY tamsulosin tamsulosin No 1capsul Q1D tamsulosin [facility] 0.4 mg 0.4 mg e(s) 0.4 mg Medical capsule capsule capsule Take 1 Take 1 Take 1 capsule capsule capsule every day every day every day by oral by oral by oral route for route for route for 30 days. 30 days. 30 days. acetylcyste acetylcyste No acetylcyst [facility] ine 100 ine 100 eine 100 Medic al mg/mL (10 mg/mL (10 mg/mL (10 %) solution %) solution %) solution albuterol albuterol No albuterol [facility] sulfate 2.5 sulfate 2.5 sulfate Medical mg/3 mL mg/3 mL 2.5 mg/3 (0.083 %) (0.083 %) mL (0.083 solution solution %) for for solution nebulizatio nebulizatio for n n nebulizati on albuterol albuterol No .5mL BID albuterol [facility] sulfate sulfate sulfate Medica l concentrate concentrate concentrat 2.5 mg/0.5 2.5 mg/0.5 e 2.5 mL solution mL solution mg/0.5 mL for for solution nebulizatio nebulizatio for n Inhale n Inhale nebulizati 0.5 mL 0.5 mL on Inhale twice a day twice a day 0.5 mL by by twice a nebulizatio nebulizatio day by n route. n route. nebulizati on route. amlodipine amlodipine No amlodipine [facility] 10 mg 10 mg 10 mg Medical tablet TAKE tablet TAKE tablet 1 TABLET BY 1 TABLET BY TAKE 1 MOUTH ONCE MOUTH ONCE TABLET BY DAILY DAILY MOUTH ONCE DAILY aspirin 81 aspirin 81 No aspirin 81 [facility] mg mg mg Medical tablet,nina tablet,nina tablet,del yed release yed release ayed TAKE 1 TAKE 1 release TABLET BY TABLET BY TAKE 1 MOUTH ONCE MOUTH ONCE TABLET BY DAILY DAILY MOUTH ONCE DAILY atorvastati atorvastati No atorvastat [facility] n 20 mg n 20 mg in 20 mg Medic al tablet Take tablet Take tablet 1 tablet 1 tablet Take 1 every day every day tablet by oral by oral every day route for route for by oral 30 days. 30 days. route for 30 days. budesonide budesonide No budesonide [facility] 0.5 mg/2 mL 0.5 mg/2 mL 0.5 mg/2 Medical suspension suspension mL for for suspension nebulizatio nebulizatio for n USE 1 n USE 1 nebulizati VIAL IN VIAL IN on USE 1 NEBULIZER NEBULIZER VIAL IN TWICE DAILY TWICE DAILY NEBULIZER TWICE DAILY carvedilol carvedilol No carvedilol [facility] 25 mg 25 mg 25 mg Medical tablet TAKE tablet TAKE tablet 1 TABLET BY 1 TABLET BY TAKE 1 MOUTH TWICE MOUTH TWICE TABLET BY DAILY WITH DAILY WITH MOUTH FOOD FOOD TWICE DAILY WITH FOOD cholecalcif cholecalcif No cholecalci [facility] ray ray ferol Medical (vitamin (vitamin (vitamin D3) 12.5 D3) 12.5 D3) 12.5 mcg/5 mL mcg/5 mL mcg/5 mL (500 unit/5 (500 unit/5 (500 mL) oral mL) oral unit/5 mL) liquid GIVE liquid GIVE oral 10ML VIA 10ML VIA liquid GTUBE TWICE GTUBE TWICE GIVE 10ML A DAY A DAY VIA GTUBE TWICE A DAY escitalopra escitalopra No escitalopr [facility] m 10 mg m 10 mg am 10 mg Medic al tablet TAKE tablet TAKE tablet 1 TABLET BY 1 TABLET BY TAKE 1 MOUTH ONCE MOUTH ONCE TABLET BY DAILY DAILY MOUTH ONCE DAILY ferrous ferrous No 5mL BID ferrous [facility] sulfate 300 sulfate 300 sulfate Medical mg (60 mg mg (60 mg 300 mg (60 iron)/5 mL iron)/5 mL mg iron)/5 oral liquid oral liquid mL oral Take 5 mL Take 5 mL liquid twice a day twice a day Take 5 mL by oral by oral twice a route. route. day by oral route. insulin insulin No insulin [facility] lispro lispro lispro Medical (U-100) 100 (U-100) 100 (U-100) unit/mL unit/mL 100 subcutaneou subcutaneou unit/mL s pen s pen subcutaneo Inject by Inject by us pen sub-q sub-q Inject by route. route. sub-q route. ipratropium ipratropium No ipratropiu [facility] 0.5 0.5 m 0.5 Medical mg-albutero mg-albutero mg-albuter l 3 mg (2.5 l 3 mg (2.5 ol 3 mg mg base)/3 mg base)/3 (2.5 mg mL mL base)/3 mL nebulizatio nebulizatio nebulizati n soln n soln on soln Inhale 3 mL Inhale 3 mL Inhale 3 every 6 every 6 mL every 6 hours by hours by hours by nebulizatio nebulizatio nebulizati n route as n route as on route needed. needed. as needed. ipratropium ipratropium No ipratropiu [facility] bromide bromide m bromide [facility]i michelle 0.02 % 0.02 % 0.02 % solution solution solution for for for inhalation inhalation inhalation Inhale 2.5 Inhale 2.5 Inhale 2.5 mL twice a mL twice a mL twice a day by day by day by inhalation inhalation inhalation route. route. route. lactulose lactulose No lactulose [facility] 10 gram/15 10 gram/15 10 gram/15 Medical mL oral mL oral mL oral solution solution solution Lantus Lantus No 27unit( BID Lantus [facility] Solostar Solostar s) Solostar Med ical U-100 U-100 U-100 Insulin 100 Insulin 100 Insulin unit/mL (3 unit/mL (3 100 mL) mL) unit/mL (3 subcutaneou subcutaneou mL) s pen s pen subcutaneo Inject 27 Inject 27 us pen units twice units twice Inject 27 a day by a day by units subcutaneou subcutaneou twice a s route. s route. day by subcutaneo us route. levothyroxi levothyroxi No levothyrox [facility] ne 25 mcg ne 25 mcg ine 25 mcg Medical tablet TAKE tablet TAKE tablet 1 TABLET BY 1 TABLET BY TAKE 1 MOUTH ONCE MOUTH ONCE TABLET BY DAILY IN DAILY IN MOUTH ONCE THE MORNING THE MORNING DAILY IN ON AN EMPTY ON AN EMPTY THE STOMACH STOMACH MORNING ON AN EMPTY STOMACH nystatin nystatin No nystatin Della via 100,000 100,000 100,000 Medica l unit/gram unit/gram unit/gram topical topical topical ointment ointment ointment omeprazole omeprazole No 1capsul Q1D omeprazole [facility] 10 mg 10 mg e(s) 10 mg Medical capsule,del capsule,del capsule,de ayed ayed layed release release release Take 1 Take 1 Take 1 capsule capsule capsule every day every day every day by oral by oral by oral route for route for route for 30 days. 30 days. 30 days. ondansetron ondansetron No 1 Q8H ondansetro [facility] 4 mg 4 mg n 4 mg Medical disintegrat disintegrat disintegra ing tablet ing tablet ting Place 1 Place [address] 1 every 8 every 8 tablet hours by hours by every 8 oral route oral route hours by as needed. as needed. oral route as needed. senna 8.6 senna 8.6 No senna 8.6 [facility] mg tablet mg tablet mg tablet Medical TAKE 1 TAKE 1 TAKE 1 TABLET BY TABLET BY TABLET BY MOUTH ONCE MOUTH ONCE MOUTH ONCE DAILY DAILY DAILY tamsulosin tamsulosin No tamsulosin [facility] 0.4 mg 0.4 mg 0.4 mg Medical capsule capsule capsule Take 1 Take 1 Take 1 capsule capsule capsule every day every day every day by oral by oral by oral route for route for route for 30 days. 30 days. 30 days. acetaminoph acetaminoph No 1 Q8H acetaminop [facility] en 300 en 300 hen 300 Medical mg-codeine mg-codeine mg-codeine 30 mg 30 mg 30 mg tablet Take tablet Take tablet 1 tablet 1 tablet Take 1 every 8 every 8 tablet hours by hours by every 8 oral route oral route hours by as needed as needed oral route for 10 for 10 as needed days. days. for 10 days. acetylcyste acetylcyste No acetylcyst [facility] ine 100 ine 100 eine 100 Medic al mg/mL (10 mg/mL (10 mg/mL (10 %) solution %) solution %) solution albuterol albuterol No .5mL BID albuterol [facility] sulfate sulfate sulfate Medica l concentrate concentrate concentrat 2.5 mg/0.5 2.5 mg/0.5 e 2.5 mL solution mL solution mg/0.5 mL for for solution nebulizatio nebulizatio for n Inhale n Inhale nebulizati 0.5 mL 0.5 mL on Inhale twice a day twice a day 0.5 mL by by twice a nebulizatio nebulizatio day by n route. n route. nebulizati on route. amlodipine amlodipine No amlodipine [facility] 10 mg 10 mg 10 mg Medical tablet TAKE tablet TAKE tablet 1 TABLET BY 1 TABLET BY TAKE 1 MOUTH ONCE MOUTH ONCE TABLET BY DAILY DAILY MOUTH ONCE DAILY aspirin 81 aspirin 81 No aspirin 81 [facility] mg mg mg Medical tablet,nina tablet,nina tablet,del yed release yed release ayed TAKE 1 TAKE 1 release TABLET BY TABLET BY TAKE 1 MOUTH ONCE MOUTH ONCE TABLET BY DAILY DAILY MOUTH ONCE DAILY atorvastati atorvastati No 1 Q1D atorvastat [facility] n 20 mg n 20 mg in 20 mg Medic al tablet Take tablet Take tablet 1 tablet 1 tablet Take 1 every day every day tablet by oral by oral every day route for route for by oral 30 days. 30 days. route for 30 days. budesonide budesonide No budesonide [facility] 0.5 mg/2 mL 0.5 mg/2 mL 0.5 mg/2 Medical suspension suspension mL for for suspension nebulizatio nebulizatio for n USE 1 n USE 1 nebulizati VIAL IN VIAL IN on USE 1 NEBULIZER NEBULIZER VIAL IN TWICE DAILY TWICE DAILY NEBULIZER TWICE DAILY carvedilol carvedilol No carvedilol [facility] 25 mg 25 mg 25 mg Medical tablet TAKE tablet TAKE tablet 1 TABLET BY 1 TABLET BY TAKE 1 MOUTH TWICE MOUTH TWICE TABLET BY DAILY WITH DAILY WITH MOUTH FOOD FOOD TWICE DAILY WITH FOOD Dialyvite Dialyvite No Dialyvite [facility] 800 0.8 mg 800 0.8 mg 800 0.8 mg Medical tablet TAKE tablet TAKE tablet 1 TABLET BY 1 TABLET BY TAKE 1 MOUTH ONCE MOUTH ONCE TABLET BY DAILY DAILY MOUTH ONCE DAILY escitalopra escitalopra No escitalopr [facility] m 10 mg m 10 mg am 10 mg Medic al tablet TAKE tablet TAKE tablet 1 TABLET BY 1 TABLET BY TAKE 1 MOUTH ONCE MOUTH ONCE TABLET BY DAILY DAILY MOUTH ONCE DAILY ferrous ferrous No 5mL BID ferrous [facility] sulfate 300 sulfate 300 sulfate Medical mg (60 mg mg (60 mg 300 mg (60 iron)/5 mL iron)/5 mL mg iron)/5 oral liquid oral liquid mL oral Take 5 mL Take 5 mL liquid twice a day twice a day Take 5 mL by oral by oral twice a route. route. day by oral route. first-omepr first-omepr No first-omep [facility] azole azole razole Medical 2mg/ml emre 2mg/ml emre 2mg/ml emre TAKE 10 ML TAKE 10 ML TAKE 10 ML BY MOUTH BY MOUTH BY MOUTH ONCE DAILY ONCE DAILY ONCE DAILY 30 MINUTES 30 MINUTES 30 MINUTES BEFORE BEFORE BEFORE MORNING MORNING MORNING MEAL MEAL MEAL insulin insulin No 25unit( BID insulin Della via glargine glargine s) glargine Med ical (U-100) 100 (U-100) 100 (U-100) unit/mL (3 unit/mL (3 100 mL) mL) unit/mL (3 subcutaneou subcutaneou mL) s pen s pen subcutaneo Inject 25 Inject 25 us pen units twice units twice Inject 25 a day by a day by units subcutaneou subcutaneou twice a s route. s route. day by subcutaneo us route. insulin insulin No insulin [facility] lispro lispro lispro Medical (U-100) 100 (U-100) 100 (U-100) unit/mL unit/mL 100 subcutaneou subcutaneou unit/mL s pen per s pen per subcutaneo sliding sliding us pen per scale scale sliding scale ipratropium ipratropium No 3mL Q6H ipratropiu [facility] 0.5 0.5 m 0.5 Medical mg-albutero mg-albutero mg-albuter l 3 mg (2.5 l 3 mg (2.5 ol 3 mg mg base)/3 mg base)/3 (2.5 mg mL mL base)/3 mL nebulizatio nebulizatio nebulizati n soln n soln on soln Inhale 3 mL Inhale 3 mL Inhale 3 every 6 every 6 mL every 6 hours by hours by hours by nebulizatio nebulizatio nebulizati n route as n route as on route needed. needed. as needed. ipratropium ipratropium No 2.5mL BID ipratropiu [facility] bromide bromide m bromide Medi michelle 0.02 % 0.02 % 0.02 % solution solution solution for for for inhalation inhalation inhalation Inhale 2.5 Inhale 2.5 Inhale 2.5 mL twice a mL twice a mL twice a day by day by day by inhalation inhalation inhalation route. route. route. lactulose lactulose No lactulose [facility] 10 gram/15 10 gram/15 10 gram/15 Medical mL oral mL oral mL oral solution solution solution levothyroxi levothyroxi No levothyrox [facility] ne 25 mcg ne 25 mcg ine 25 mcg Medical tablet TAKE tablet TAKE tablet 1 TABLET BY 1 TABLET BY TAKE 1 MOUTH ONCE MOUTH ONCE TABLET BY DAILY IN DAILY IN MOUTH ONCE THE MORNING THE MORNING DAILY IN ON AN EMPTY ON AN EMPTY THE STOMACH STOMACH MORNING ON AN EMPTY STOMACH ondansetron ondansetron No 1 Q8H ondansetro [facility] HCl 4 mg HCl 4 mg n HCl 4 mg M edical tablet Take tablet Take tablet 1 tablet 1 tablet Take 1 every 8 every 8 tablet hours by hours by every 8 oral route oral route hours by as needed. as needed. oral route as needed. senna 8.6 senna 8.6 No senna 8.6 [facility] mg tablet mg tablet mg tablet Medical TAKE 1 TAKE 1 TAKE 1 TABLET BY TABLET BY TABLET BY MOUTH ONCE MOUTH ONCE MOUTH ONCE DAILY DAILY DAILY tamsulosin tamsulosin No 1capsul Q1D tamsulosin [facility] 0.4 mg 0.4 mg e(s) 0.4 mg Medical capsule capsule capsule Take 1 Take 1 Take 1 capsule capsule capsule every day every day every day by oral by oral by oral route for route for route for 30 days. 30 days. 30 days. acetaminoph acetaminoph No 1 Q8H acetaminop [facility] en 300 en 300 hen 300 Medical mg-codeine mg-codeine mg-codeine 30 mg 30 mg 30 mg tablet Take tablet Take tablet 1 tablet 1 tablet Take 1 every 8 every 8 tablet hours by hours by every 8 oral route oral route hours by as needed as needed oral route for 10 for 10 as needed days. days. for 10 days. acetylcyste acetylcyste No acetylcyst [facility] ine 100 ine 100 eine 100 Medic al mg/mL (10 mg/mL (10 mg/mL (10 %) solution %) solution %) solution albuterol albuterol No .5mL BID albuterol [facility] sulfate sulfate sulfate Medica l concentrate concentrate concentrat 2.5 mg/0.5 2.5 mg/0.5 e 2.5 mL solution mL solution mg/0.5 mL for for solution nebulizatio nebulizatio for n Inhale n Inhale nebulizati 0.5 mL 0.5 mL on Inhale twice a day twice a day 0.5 mL by by twice a nebulizatio nebulizatio day by n route. n route. nebulizati on route. amlodipine amlodipine No amlodipine [facility] 10 mg 10 mg 10 mg Medical tablet TAKE tablet TAKE tablet 1 TABLET BY 1 TABLET BY TAKE 1 MOUTH ONCE MOUTH ONCE TABLET BY DAILY DAILY MOUTH ONCE DAILY aspirin 81 aspirin 81 No aspirin 81 [facility] mg mg mg Medical tablet,nina tablet,nina tablet,del yed release yed release ayed TAKE 1 TAKE 1 release TABLET BY TABLET BY TAKE 1 MOUTH ONCE MOUTH ONCE TABLET BY DAILY DAILY MOUTH ONCE DAILY atorvastati atorvastati No 1 Q1D atorvastat [facility] n 20 mg n 20 mg in 20 mg Medic al tablet Take tablet Take tablet 1 tablet 1 tablet Take 1 every day every day tablet by oral by oral every day route for route for by oral 30 days. 30 days. route for 30 days. budesonide budesonide No budesonide [facility] 0.5 mg/2 mL 0.5 mg/2 mL 0.5 mg/2 Medical suspension suspension mL for for suspension nebulizatio nebulizatio for n USE 1 n USE 1 nebulizati VIAL IN VIAL IN on USE 1 NEBULIZER NEBULIZER VIAL IN TWICE DAILY TWICE DAILY NEBULIZER TWICE DAILY carvedilol carvedilol No carvedilol [facility] 25 mg 25 mg 25 mg Medical tablet TAKE tablet TAKE tablet 1 TABLET BY 1 TABLET BY TAKE 1 MOUTH TWICE MOUTH TWICE TABLET BY DAILY WITH DAILY WITH MOUTH FOOD FOOD TWICE DAILY WITH FOOD cholecalcif cholecalcif No cholecalci [facility] ray ray ferol Medical (vitamin (vitamin (vitamin D3) 12.5 D3) 12.5 D3) 12.5 mcg/5 mL mcg/5 mL mcg/5 mL (500 unit/5 (500 unit/5 (500 mL) oral mL) oral unit/5 mL) liquid GIVE liquid GIVE oral 10ML VIA 10ML VIA liquid GTUBE TWICE GTUBE TWICE GIVE 10ML A DAY A DAY VIA GTUBE TWICE A DAY Dialyvite Dialyvite No Dialyvite [facility] 800 0.8 mg 800 0.8 mg 800 0.8 mg Medical tablet TAKE tablet TAKE tablet 1 TABLET BY 1 TABLET BY TAKE 1 MOUTH ONCE MOUTH ONCE TABLET BY DAILY DAILY MOUTH ONCE DAILY escitalopra escitalopra No escitalopr [facility] m 10 mg m 10 mg am 10 mg Medic al tablet TAKE tablet TAKE tablet 1 TABLET BY 1 TABLET BY TAKE 1 MOUTH ONCE MOUTH ONCE TABLET BY DAILY DAILY MOUTH ONCE DAILY ferrous ferrous No 5mL BID ferrous [facility] sulfate 300 sulfate 300 sulfate Medical mg (60 mg mg (60 mg 300 mg (60 iron)/5 mL iron)/5 mL mg iron)/5 oral liquid oral liquid mL oral Take 5 mL Take 5 mL liquid twice a day twice a day Take 5 mL by oral by oral twice a route. route. day by oral route. first-omepr first-omepr No first-omep [facility] azole azole razole Medical 2mg/ml emre 2mg/ml emre 2mg/ml emre TAKE 10 ML TAKE 10 ML TAKE 10 ML BY MOUTH BY MOUTH BY MOUTH ONCE DAILY ONCE DAILY ONCE DAILY 30 MINUTES 30 MINUTES 30 MINUTES BEFORE BEFORE BEFORE MORNING MORNING MORNING MEAL MEAL MEAL insulin insulin No 25unit( BID insulin Della via glargine glargine s) glargine Med ical (U-100) 100 (U-100) 100 (U-100) unit/mL (3 unit/mL (3 100 mL) mL) unit/mL (3 subcutaneou subcutaneou mL) s pen s pen subcutaneo Inject 25 Inject 25 us pen units twice units twice Inject 25 a day by a day by units subcutaneou subcutaneou twice a s route. s route. day by subcutaneo us route. insulin insulin No insulin [facility] lispro lispro lispro Medical (U-100) 100 (U-100) 100 (U-100) unit/mL unit/mL 100 subcutaneou subcutaneou unit/mL s pen per s pen per subcutaneo sliding sliding us pen per scale scale sliding scale ipratropium ipratropium No 3mL Q6H ipratropiu [facility] 0.5 0.5 m 0.5 Medical mg-albutero mg-albutero mg-albuter l 3 mg (2.5 l 3 mg (2.5 ol 3 mg mg base)/3 mg base)/3 (2.5 mg mL mL base)/3 mL nebulizatio nebulizatio nebulizati n soln n soln on soln Inhale 3 mL Inhale 3 mL Inhale 3 every 6 every 6 mL every 6 hours by hours by hours by nebulizatio nebulizatio nebulizati n route as n route as on route needed. needed. as needed. ipratropium ipratropium No 2.5mL BID ipratropiu [facility] bromide bromide m bromide Medi michelle 0.02 % 0.02 % 0.02 % solution solution solution for for for inhalation inhalation inhalation Inhale 2.5 Inhale 2.5 Inhale 2.5 mL twice a mL twice a mL twice a day by day by day by inhalation inhalation inhalation route. route. route. lactulose lactulose No lactulose [facility] 10 gram/15 10 gram/15 10 gram/15 Medical mL oral mL oral mL oral solution solution solution levothyroxi levothyroxi No levothyrox [facility] ne 25 mcg ne 25 mcg ine 25 mcg Medical tablet TAKE tablet TAKE tablet 1 TABLET BY 1 TABLET BY TAKE 1 MOUTH ONCE MOUTH ONCE TABLET BY DAILY IN DAILY IN MOUTH ONCE THE MORNING THE MORNING DAILY IN ON AN EMPTY ON AN EMPTY THE STOMACH STOMACH MORNING ON AN EMPTY STOMACH ondansetron ondansetron No 1 Q8H ondansetro [facility] HCl 4 mg HCl 4 mg n HCl 4 mg M edical tablet Take tablet Take tablet 1 tablet 1 tablet Take 1 every 8 every 8 tablet hours by hours by every 8 oral route oral route hours by as needed. as needed. oral route as needed. senna 8.6 senna 8.6 No senna 8.6 [facility] mg tablet mg tablet mg tablet Medical TAKE 1 TAKE 1 TAKE 1 TABLET BY TABLET BY TABLET BY MOUTH ONCE MOUTH ONCE MOUTH ONCE DAILY DAILY DAILY tamsulosin tamsulosin No 1capsul Q1D tamsulosin [facility] 0.4 mg 0.4 mg e(s) 0.4 mg Medical capsule capsule capsule Take 1 Take 1 Take 1 capsule capsule capsule every day every day every day by oral by oral by oral route for route for route for 30 days. 30 days. 30 days. Zosyn 3.375 Zosyn 3.375 No 50mL Q6H Zosyn [facility] gram/50 mL gram/50 mL 3.375 Me dical in dextrose in dextrose gram/50 mL (iso-osmoti (iso-osmoti in c) c) dextrose intravenous intravenous (iso-osmot piggyback piggyback ic) Infuse 50 Infuse 50 intravenou mL every 6 mL every 6 s hours by hours by piggyback intravenous intravenous Infuse 50 route for 7 route for 7 mL every 6 days. days. hours by intravenou s route for 7 days. acetaminoph acetaminoph No 1 Q8H acetaminop [facility] en 300 en 300 hen 300 Medical mg-codeine mg-codeine mg-codeine 30 mg 30 mg 30 mg tablet Take tablet Take tablet 1 tablet 1 tablet Take 1 every 8 every 8 tablet hours by hours by every 8 oral route oral route hours by as needed as needed oral route for 10 for 10 as needed days. days. for 10 days. acetylcyste acetylcyste No acetylcyst [facility] ine 100 ine 100 eine 100 Medic al mg/mL (10 mg/mL (10 mg/mL (10 %) solution %) solution %) solution albuterol albuterol No albuterol [facility] sulfate 2.5 sulfate 2.5 sulfate Medical mg/3 mL mg/3 mL 2.5 mg/3 (0.083 %) (0.083 %) mL (0.083 solution solution %) for for solution nebulizatio nebulizatio for n n nebulizati on albuterol albuterol No .5mL BID albuterol [facility] sulfate sulfate sulfate Medica l concentrate concentrate concentrat 2.5 mg/0.5 2.5 mg/0.5 e 2.5 mL solution mL solution mg/0.5 mL for for solution nebulizatio nebulizatio for n Inhale n Inhale nebulizati 0.5 mL 0.5 mL on Inhale twice a day twice a day 0.5 mL by by twice a nebulizatio nebulizatio day by n route. n route. nebulizati on route. amlodipine amlodipine No amlodipine [facility] 10 mg 10 mg 10 mg Medical tablet TAKE tablet TAKE tablet 1 TABLET BY 1 TABLET BY TAKE 1 MOUTH ONCE MOUTH ONCE TABLET BY DAILY DAILY MOUTH ONCE DAILY aspirin 81 aspirin 81 No aspirin 81 [facility] mg mg mg Medical tablet,nina tablet,nina tablet,del yed release yed release ayed TAKE 1 TAKE 1 release TABLET BY TABLET BY TAKE 1 MOUTH ONCE MOUTH ONCE TABLET BY DAILY DAILY MOUTH ONCE DAILY atorvastati atorvastati No atorvastat [facility] n 20 mg n 20 mg in 20 mg Medic al tablet Take tablet Take tablet 1 tablet 1 tablet Take 1 every day every day tablet by oral by oral every day route for route for by oral 30 days. 30 days. route for 30 days. budesonide budesonide No budesonide [facility] 0.5 mg/2 mL 0.5 mg/2 mL 0.5 mg/2 Medical suspension suspension mL for for suspension nebulizatio nebulizatio for n USE 1 n USE 1 nebulizati VIAL IN VIAL IN on USE 1 NEBULIZER NEBULIZER VIAL IN TWICE DAILY TWICE DAILY NEBULIZER TWICE DAILY carvedilol carvedilol No carvedilol [facility] 25 mg 25 mg 25 mg Medical tablet TAKE tablet TAKE tablet 1 TABLET BY 1 TABLET BY TAKE 1 MOUTH TWICE MOUTH TWICE TABLET BY DAILY WITH DAILY WITH MOUTH FOOD FOOD TWICE DAILY WITH FOOD cholecalcif cholecalcif No cholecalci [facility] ray ray ferol Medical (vitamin (vitamin (vitamin D3) 12.5 D3) 12.5 D3) 12.5 mcg/5 mL mcg/5 mL mcg/5 mL (500 unit/5 (500 unit/5 (500 mL) oral mL) oral unit/5 mL) liquid GIVE liquid GIVE oral 10ML VIA 10ML VIA liquid GTUBE TWICE GTUBE TWICE GIVE 10ML A DAY A DAY VIA GTUBE TWICE A DAY Dialyvite Dialyvite No Dialyvite [facility] 800 0.8 mg 800 0.8 mg 800 0.8 mg Medical tablet TAKE tablet TAKE tablet 1 TABLET BY 1 TABLET BY TAKE 1 MOUTH ONCE MOUTH ONCE TABLET BY DAILY DAILY MOUTH ONCE DAILY doxycycline doxycycline No 1capsul BID doxycyclin [facility] hyclate 100 hyclate 100 e(s) e hyclate Medical mg capsule mg capsule 100 mg Take 1 Take 1 capsule capsule capsule Take 1 twice a day twice a day capsule by oral by oral twice a route for route for day by 10 days. 10 days. oral route for 10 days. escitalopra escitalopra No escitalopr [facility] m 10 mg m 10 mg am 10 mg Medic al tablet TAKE tablet TAKE tablet 1 TABLET BY 1 TABLET BY TAKE 1 MOUTH ONCE MOUTH ONCE TABLET BY DAILY DAILY MOUTH ONCE DAILY ferrous ferrous No 5mL BID ferrous [facility] sulfate 300 sulfate 300 sulfate Medical mg (60 mg mg (60 mg 300 mg (60 iron)/5 mL iron)/5 mL mg iron)/5 oral liquid oral liquid mL oral Take 5 mL Take 5 mL liquid twice a day twice a day Take 5 mL by oral by oral twice a route. route. day by oral route. first-omepr first-omepr No first-omep [facility] azole azole razole Medical 2mg/ml emre 2mg/ml emre 2mg/ml emre TAKE 10 ML TAKE 10 ML TAKE 10 ML BY MOUTH BY MOUTH BY MOUTH ONCE DAILY ONCE DAILY ONCE DAILY 30 MINUTES 30 MINUTES 30 MINUTES BEFORE BEFORE BEFORE MORNING MORNING MORNING MEAL MEAL MEAL insulin insulin No insulin [facility] glargine glargine glargine Med ical (U-100) 100 (U-100) 100 (U-100) unit/mL (3 unit/mL (3 100 mL) mL) unit/mL (3 subcutaneou subcutaneou mL) s pen s pen subcutaneo Inject 25 Inject 25 us pen units twice units twice Inject 25 a day by a day by units subcutaneou subcutaneou twice a s route. s route. day by subcutaneo us route. insulin insulin No insulin [facility] lispro lispro lispro Medical (U-100) 100 (U-100) 100 (U-100) unit/mL unit/mL 100 subcutaneou subcutaneou unit/mL s pen s pen subcutaneo Inject by Inject by us pen sub-q sub-q Inject by route. route. sub-q route. ipratropium ipratropium No ipratropiu [facility] 0.5 0.5 m 0.5 Medical mg-albutero mg-albutero mg-albuter l 3 mg (2.5 l 3 mg (2.5 ol 3 mg mg base)/3 mg base)/3 (2.5 mg mL mL base)/3 mL nebulizatio nebulizatio nebulizati n soln n soln on soln Inhale 3 mL Inhale 3 mL Inhale 3 every 6 every 6 mL every 6 hours by hours by hours by nebulizatio nebulizatio nebulizati n route as n route as on route needed. needed. as needed. ipratropium ipratropium No ipratropiu [facility] bromide bromide m bromide Medi michelle 0.02 % 0.02 % 0.02 % solution solution solution for for for inhalation inhalation inhalation Inhale 2.5 Inhale 2.5 Inhale 2.5 mL twice a mL twice a mL twice a day by day by day by inhalation inhalation inhalation route. route. route. lactulose lactulose No lactulose [facility] 10 gram/15 10 gram/15 10 gram/15 Medical mL oral mL oral mL oral solution solution solution levofloxaci levofloxaci No levofloxac [facility] n 750 mg n 750 mg in 750 mg Me dical tablet tablet tablet levothyroxi levothyroxi No levothyrox [facility] ne 25 mcg ne 25 mcg ine 25 mcg Medical tablet TAKE tablet TAKE tablet 1 TABLET BY 1 TABLET BY TAKE 1 MOUTH ONCE MOUTH ONCE TABLET BY DAILY IN DAILY IN MOUTH ONCE THE MORNING THE MORNING DAILY IN ON AN EMPTY ON AN EMPTY THE STOMACH STOMACH MORNING ON AN EMPTY STOMACH nystatin nystatin No nystatin Della via 100,000 100,000 100,000 Medica l unit/gram unit/gram unit/gram topical topical topical ointment ointment ointment omeprazole omeprazole No omeprazole [facility] 10 mg 10 mg 10 mg Medical capsule,del capsule,del capsule,de ayed ayed layed release release release ondansetron ondansetron No ondansetro [facility] 4 mg 4 mg n 4 mg Medical disintegrat disintegrat disintegra ing tablet ing tablet ting tablet ondansetron ondansetron No 1 Q8H ondansetro [facility] HCl 4 mg HCl 4 mg n HCl 4 mg M edical tablet Take tablet Take tablet 1 tablet 1 tablet Take 1 every 8 every 8 tablet hours by hours by every 8 oral route oral route hours by as needed. as needed. oral route as needed. potassium potassium No potassium [facility] chloride 20 chloride 20 chloride Medical mEq/15 mL mEq/15 mL 20 mEq/15 oral liquid oral liquid mL oral liquid potassium potassium No potassium [facility] chloride ER chloride ER chloride Medical 10 mEq 10 mEq ER 10 mEq tablet,exte tablet,exte tablet,ext nded nded ended release(par release(par release(pa t/cryst) t/cryst) rt/cryst) senna 8.6 senna 8.6 No senna 8.6 [facility] mg tablet mg tablet mg tablet Medical TAKE 1 TAKE 1 TAKE 1 TABLET BY TABLET BY TABLET BY MOUTH ONCE MOUTH ONCE MOUTH ONCE DAILY DAILY DAILY tamsulosin tamsulosin No tamsulosin [facility] 0.4 mg 0.4 mg 0.4 mg Medical capsule capsule capsule Take 1 Take 1 Take 1 capsule capsule capsule every day every day every day by oral by oral by oral route for route for route for 30 days. 30 days. 30 days. Zosyn 3.375 Zosyn 3.375 No 50mL Q6H Zosyn [facility] gram/50 mL gram/50 mL 3.375 Me dical in dextrose in dextrose gram/50 mL (iso-osmoti (iso-osmoti in c) c) dextrose intravenous intravenous (iso-osmot piggyback piggyback ic) Infuse 50 Infuse 50 intravenou mL every 6 mL every 6 s hours by hours by piggyback intravenous intravenous Infuse 50 route for 7 route for 7 mL every 6 days. days. hours by intravenou s route for 7 days. acetaminoph acetaminoph No 1 Q8H acetaminop [facility] en 300 en 300 hen 300 Medical mg-codeine mg-codeine mg-codeine 30 mg 30 mg 30 mg tablet Take tablet Take tablet 1 tablet 1 tablet Take 1 every 8 every 8 tablet hours by hours by every 8 oral route oral route hours by as needed as needed oral route for 10 for 10 as needed days. days. for 10 days. acetylcyste acetylcyste No acetylcyst [facility] ine 100 ine 100 eine 100 Medic al mg/mL (10 mg/mL (10 mg/mL (10 %) solution %) solution %) solution albuterol albuterol No albuterol [facility] sulfate 2.5 sulfate 2.5 sulfate Medical mg/3 mL mg/3 mL 2.5 mg/3 (0.083 %) (0.083 %) mL (0.083 solution solution %) for for solution nebulizatio nebulizatio for n n nebulizati on albuterol albuterol No .5mL BID albuterol [facility] sulfate sulfate sulfate Medica l concentrate concentrate concentrat 2.5 mg/0.5 2.5 mg/0.5 e 2.5 mL solution mL solution mg/0.5 mL for for solution nebulizatio nebulizatio for n Inhale n Inhale nebulizati 0.5 mL 0.5 mL on Inhale twice a day twice a day 0.5 mL by by twice a nebulizatio nebulizatio day by n route. n route. nebulizati on route. amlodipine amlodipine No amlodipine [facility] 10 mg 10 mg 10 mg Medical tablet TAKE tablet TAKE tablet 1 TABLET BY 1 TABLET BY TAKE 1 MOUTH ONCE MOUTH ONCE TABLET BY DAILY DAILY MOUTH ONCE DAILY aspirin 81 aspirin 81 No aspirin 81 [facility] mg mg mg Medical tablet,nina tablet,nina tablet,del yed release yed release ayed TAKE 1 TAKE 1 release TABLET BY TABLET BY TAKE 1 MOUTH ONCE MOUTH ONCE TABLET BY DAILY DAILY MOUTH ONCE DAILY atorvastati atorvastati No atorvastat [facility] n 20 mg n 20 mg in 20 mg Medic al tablet Take tablet Take tablet 1 tablet 1 tablet Take 1 every day every day tablet by oral by oral every day route for route for by oral 30 days. 30 days. route for 30 days. budesonide budesonide No budesonide [facility] 0.5 mg/2 mL 0.5 mg/2 mL 0.5 mg/2 Medical suspension suspension mL for for suspension nebulizatio nebulizatio for n USE 1 n USE 1 nebulizati VIAL IN VIAL IN on USE 1 NEBULIZER NEBULIZER VIAL IN TWICE DAILY TWICE DAILY NEBULIZER TWICE DAILY carvedilol carvedilol No carvedilol [facility] 25 mg 25 mg 25 mg Medical tablet TAKE tablet TAKE tablet 1 TABLET BY 1 TABLET BY TAKE 1 MOUTH TWICE MOUTH TWICE TABLET BY DAILY WITH DAILY WITH MOUTH FOOD FOOD TWICE DAILY WITH FOOD cholecalcif cholecalcif No cholecalci [facility] ray ray ferol Medical (vitamin (vitamin (vitamin D3) 12.5 D3) 12.5 D3) 12.5 mcg/5 mL mcg/5 mL mcg/5 mL (500 unit/5 (500 unit/5 (500 mL) oral mL) oral unit/5 mL) liquid GIVE liquid GIVE oral 10ML VIA 10ML VIA liquid GTUBE TWICE GTUBE TWICE GIVE 10ML A DAY A DAY VIA GTUBE TWICE A DAY Dialyvite Dialyvite No Dialyvite [facility] 800 0.8 mg 800 0.8 mg 800 0.8 mg Medical tablet TAKE tablet TAKE tablet 1 TABLET BY 1 TABLET BY TAKE 1 MOUTH ONCE MOUTH ONCE TABLET BY DAILY DAILY MOUTH ONCE DAILY doxycycline doxycycline No 1capsul BID doxycyclin [facility] hyclate 100 hyclate 100 e(s) e hyclate Medical mg capsule mg capsule 100 mg Take 1 Take 1 capsule capsule capsule Take 1 twice a day twice a day capsule by oral by oral twice a route for route for day by 10 days. 10 days. oral route for 10 days. escitalopra escitalopra No escitalopr [facility] m 10 mg m 10 mg am 10 mg Medic al tablet TAKE tablet TAKE tablet 1 TABLET BY 1 TABLET BY TAKE 1 MOUTH ONCE MOUTH ONCE TABLET BY DAILY DAILY MOUTH ONCE DAILY ferrous ferrous No 5mL BID ferrous [facility] sulfate 300 sulfate 300 sulfate Medical mg (60 mg mg (60 mg 300 mg (60 iron)/5 mL iron)/5 mL mg iron)/5 oral liquid oral liquid mL oral Take 5 mL Take 5 mL liquid twice a day twice a day Take 5 mL by oral by oral twice a route. route. day by oral route. first-omepr first-omepr No first-omep [facility] azole azole razole Medical 2mg/ml emre 2mg/ml emre 2mg/ml emre TAKE 10 ML TAKE 10 ML TAKE 10 ML BY MOUTH BY MOUTH BY MOUTH ONCE DAILY ONCE DAILY ONCE DAILY 30 MINUTES 30 MINUTES 30 MINUTES BEFORE BEFORE BEFORE MORNING MORNING MORNING MEAL MEAL MEAL insulin insulin No insulin [facility] glargine glargine glargine Med ical (U-100) 100 (U-100) 100 (U-100) unit/mL (3 unit/mL (3 100 mL) mL) unit/mL (3 subcutaneou subcutaneou mL) s pen s pen subcutaneo Inject 25 Inject 25 us pen units twice units twice Inject 25 a day by a day by units subcutaneou subcutaneou twice a s route. s route. day by subcutaneo us route. insulin insulin No insulin [facility] lispro lispro lispro Medical (U-100) 100 (U-100) 100 (U-100) unit/mL unit/mL 100 subcutaneou subcutaneou unit/mL s pen s pen subcutaneo Inject by Inject by us pen sub-q sub-q Inject by route. route. sub-q route. ipratropium ipratropium No ipratropiu [facility] 0.5 0.5 m 0.5 Medical mg-albutero mg-albutero mg-albuter l 3 mg (2.5 l 3 mg (2.5 ol 3 mg mg base)/3 mg base)/3 (2.5 mg mL mL base)/3 mL nebulizatio nebulizatio nebulizati n soln n soln on soln Inhale 3 mL Inhale 3 mL Inhale 3 every 6 every 6 mL every 6 hours by hours by hours by nebulizatio nebulizatio nebulizati n route as n route as on route needed. needed. as needed. ipratropium ipratropium No ipratropiu [facility] bromide bromide m bromide Medi michelle 0.02 % 0.02 % 0.02 % solution solution solution for for for inhalation inhalation inhalation Inhale 2.5 Inhale 2.5 Inhale 2.5 mL twice a mL twice a mL twice a day by day by day by inhalation inhalation inhalation route. route. route. lactulose lactulose No lactulose [facility] 10 gram/15 10 gram/15 10 gram/15 Medical mL oral mL oral mL oral solution solution solution levothyroxi levothyroxi No levothyrox [facility] ne 25 mcg ne 25 mcg ine 25 mcg Medical tablet TAKE tablet TAKE tablet 1 TABLET BY 1 TABLET BY TAKE 1 MOUTH ONCE MOUTH ONCE TABLET BY DAILY IN DAILY IN MOUTH ONCE THE MORNING THE MORNING DAILY IN ON AN EMPTY ON AN EMPTY THE STOMACH STOMACH MORNING ON AN EMPTY STOMACH nystatin nystatin No nystatin Della via 100,000 100,000 100,000 Medica l unit/gram unit/gram unit/gram topical topical topical ointment ointment ointment omeprazole omeprazole No 1capsul Q1D omeprazole [facility] 10 mg 10 mg e(s) 10 mg Medical capsule,del capsule,del capsule,de ayed ayed layed release release release Take 1 Take 1 Take 1 capsule capsule capsule every day every day every day by oral by oral by oral route for route for route for 30 days. 30 days. 30 days. ondansetron ondansetron No 1 Q8H ondansetro [facility] 4 mg 4 mg n 4 mg Medical disintegrat disintegrat disintegra ing tablet ing tablet ting Place 1 Place [address] 1 every 8 every 8 tablet hours by hours by every 8 oral route oral route hours by as needed. as needed. oral route as needed. potassium potassium No 20milli Q1D potassium [facility] chloride 20 chloride 20 equival chloride Medical mEq/15 mL mEq/15 mL ent(s) 20 mEq/15 oral liquid oral liquid mL oral Take 20 Take 20 liquid milliequiva milliequiva Take 20 lents every lents every milliequiv day by oral day by oral alents route. route. every day by oral route. senna 8.6 senna 8.6 No senna 8.6 [facility] mg tablet mg tablet mg tablet Medical TAKE 1 TAKE 1 TAKE 1 TABLET BY TABLET BY TABLET BY MOUTH ONCE MOUTH ONCE MOUTH ONCE DAILY DAILY DAILY tamsulosin tamsulosin No tamsulosin [facility] 0.4 mg 0.4 mg 0.4 mg Medical capsule capsule capsule Take 1 Take 1 Take 1 capsule capsule capsule every day every day every day by oral by oral by oral route for route for route for 30 days. 30 days. 30 days. acetaminoph acetaminoph No 1 Q8H acetaminop [facility] en 300 en 300 hen 300 Medical mg-codeine mg-codeine mg-codeine 30 mg 30 mg 30 mg tablet Take tablet Take tablet 1 tablet 1 tablet Take 1 every 8 every 8 tablet hours by hours by every 8 oral route oral route hours by as needed as needed oral route for 10 for 10 as needed days. days. for 10 days. acetylcyste acetylcyste No acetylcyst [facility] ine 100 ine 100 eine 100 Medic al mg/mL (10 mg/mL (10 mg/mL (10 %) solution %) solution %) solution albuterol albuterol No albuterol [facility] sulfate 2.5 sulfate 2.5 sulfate Medical mg/3 mL mg/3 mL 2.5 mg/3 (0.083 %) (0.083 %) mL (0.083 solution solution %) for for solution nebulizatio nebulizatio for n n nebulizati on albuterol albuterol No .5mL BID albuterol [facility] sulfate sulfate sulfate Medica l concentrate concentrate concentrat 2.5 mg/0.5 2.5 mg/0.5 e 2.5 mL solution mL solution mg/0.5 mL for for solution nebulizatio nebulizatio for n Inhale n Inhale nebulizati 0.5 mL 0.5 mL on Inhale twice a day twice a day 0.5 mL by by twice a nebulizatio nebulizatio day by n route. n route. nebulizati on route. amlodipine amlodipine No amlodipine [facility] 10 mg 10 mg 10 mg Medical tablet TAKE tablet TAKE tablet 1 TABLET BY 1 TABLET BY TAKE 1 MOUTH ONCE MOUTH ONCE TABLET BY DAILY DAILY MOUTH ONCE DAILY aspirin 81 aspirin 81 No aspirin 81 [facility] mg mg mg Medical tablet,nina tablet,nina tablet,del yed release yed release ayed TAKE 1 TAKE 1 release TABLET BY TABLET BY TAKE 1 MOUTH ONCE MOUTH ONCE TABLET BY DAILY DAILY MOUTH ONCE DAILY atorvastati atorvastati No atorvastat [facility] n 20 mg n 20 mg in 20 mg Medic al tablet Take tablet Take tablet 1 tablet 1 tablet Take 1 every day every day tablet by oral by oral every day route for route for by oral 30 days. 30 days. route for 30 days. budesonide budesonide No budesonide [facility] 0.5 mg/2 mL 0.5 mg/2 mL 0.5 mg/2 Medical suspension suspension mL for for suspension nebulizatio nebulizatio for n USE 1 n USE 1 nebulizati VIAL IN VIAL IN on USE 1 NEBULIZER NEBULIZER VIAL IN TWICE DAILY TWICE DAILY NEBULIZER TWICE DAILY carvedilol carvedilol No carvedilol [facility] 25 mg 25 mg 25 mg Medical tablet TAKE tablet TAKE tablet 1 TABLET BY 1 TABLET BY TAKE 1 MOUTH TWICE MOUTH TWICE TABLET BY DAILY WITH DAILY WITH MOUTH FOOD FOOD TWICE DAILY WITH FOOD cholecalcif cholecalcif No cholecalci [facility] ray ray ferol Medical (vitamin (vitamin (vitamin D3) 12.5 D3) 12.5 D3) 12.5 mcg/5 mL mcg/5 mL mcg/5 mL (500 unit/5 (500 unit/5 (500 mL) oral mL) oral unit/5 mL) liquid GIVE liquid GIVE oral 10ML VIA 10ML VIA liquid GTUBE TWICE GTUBE TWICE GIVE 10ML A DAY A DAY VIA GTUBE TWICE A DAY Dialyvite Dialyvite No Dialyvite [facility] 800 0.8 mg 800 0.8 mg 800 0.8 mg Medical tablet TAKE tablet TAKE tablet 1 TABLET BY 1 TABLET BY TAKE 1 MOUTH ONCE MOUTH ONCE TABLET BY DAILY DAILY MOUTH ONCE DAILY doxycycline doxycycline No 1capsul BID doxycyclin [facility] hyclate 100 hyclate 100 e(s) e hyclate Medical mg capsule mg capsule 100 mg Take 1 Take 1 capsule capsule capsule Take 1 twice a day twice a day capsule by oral by oral twice a route for route for day by 10 days. 10 days. oral route for 10 days. escitalopra escitalopra No escitalopr [facility] m 10 mg m 10 mg am 10 mg Medic al tablet TAKE tablet TAKE tablet 1 TABLET BY 1 TABLET BY TAKE 1 MOUTH ONCE MOUTH ONCE TABLET BY DAILY DAILY MOUTH ONCE DAILY ferrous ferrous No 5mL BID ferrous [facility] sulfate 300 sulfate 300 sulfate Medical mg (60 mg mg (60 mg 300 mg (60 iron)/5 mL iron)/5 mL mg iron)/5 oral liquid oral liquid mL oral Take 5 mL Take 5 mL liquid twice a day twice a day Take 5 mL by oral by oral twice a route. route. day by oral route. first-omepr first-omepr No first-omep [facility] azole azole razole Medical 2mg/ml emre 2mg/ml emre 2mg/ml emre TAKE 10 ML TAKE 10 ML TAKE 10 ML BY MOUTH BY MOUTH BY MOUTH ONCE DAILY ONCE DAILY ONCE DAILY 30 MINUTES 30 MINUTES 30 MINUTES BEFORE BEFORE BEFORE MORNING MORNING MORNING MEAL MEAL MEAL insulin insulin No insulin [facility] glargine glargine glargine Med ical (U-100) 100 (U-100) 100 (U-100) unit/mL (3 unit/mL (3 100 mL) mL) unit/mL (3 subcutaneou subcutaneou mL) s pen s pen subcutaneo Inject 25 Inject 25 us pen units twice units twice Inject 25 a day by a day by units subcutaneou subcutaneou twice a s route. s route. day by subcutaneo us route. insulin insulin No insulin [facility] lispro lispro lispro Medical (U-100) 100 (U-100) 100 (U-100) unit/mL unit/mL 100 subcutaneou subcutaneou unit/mL s pen s pen subcutaneo Inject by Inject by us pen sub-q sub-q Inject by route. route. sub-q route. ipratropium ipratropium No ipratropiu [facility] 0.5 0.5 m 0.5 Medical mg-albutero mg-albutero mg-albuter l 3 mg (2.5 l 3 mg (2.5 ol 3 mg mg base)/3 mg base)/3 (2.5 mg mL mL base)/3 mL nebulizatio nebulizatio nebulizati n soln n soln on soln Inhale 3 mL Inhale 3 mL Inhale 3 every 6 every 6 mL every 6 hours by hours by hours by nebulizatio nebulizatio nebulizati n route as n route as on route needed. needed. as needed. ipratropium ipratropium No ipratropiu [facility] bromide bromide m bromide [facility]i michelle 0.02 % 0.02 % 0.02 % solution solution solution for for for inhalation inhalation inhalation Inhale 2.5 Inhale 2.5 Inhale 2.5 mL twice a mL twice a mL twice a day by day by day by inhalation inhalation inhalation route. route. route. lactulose lactulose No lactulose [facility] 10 gram/15 10 gram/15 10 gram/15 Medical mL oral mL oral mL oral solution solution solution levothyroxi levothyroxi No levothyrox [facility] ne 25 mcg ne 25 mcg ine 25 mcg Medical tablet TAKE tablet TAKE tablet 1 TABLET BY 1 TABLET BY TAKE 1 MOUTH ONCE MOUTH ONCE TABLET BY DAILY IN DAILY IN MOUTH ONCE THE MORNING THE MORNING DAILY IN ON AN EMPTY ON AN EMPTY THE STOMACH STOMACH MORNING ON AN EMPTY STOMACH nystatin nystatin No nystatin [facility] via 100,000 100,000 100,000 Medica l unit/gram unit/gram unit/gram topical topical topical ointment ointment ointment omeprazole omeprazole No 1capsul Q1D omeprazole [facility] 10 mg 10 mg e(s) 10 mg Medical capsule,del capsule,del capsule,de ayed ayed layed release release release Take 1 Take 1 Take 1 capsule capsule capsule every day every day every day by oral by oral by oral route for route for route for 30 days. 30 days. 30 days. ondansetron ondansetron No 1 Q8H ondansetro [facility] 4 mg 4 mg n 4 mg Medical disintegrat disintegrat disintegra ing tablet ing tablet ting Place 1 Place [address] 1 every 8 every 8 tablet hours by hours by every 8 oral route oral route hours by as needed. as needed. oral route as needed. potassium potassium No 20milli Q1D potassium [facility] chloride 20 chloride 20 equival chloride Medical mEq/15 mL mEq/15 mL ent(s) 20 mEq/15 oral liquid oral liquid mL oral Take 20 Take 20 liquid milliequiva milliequiva Take 20 lents every lents every milliequiv day by oral day by oral alents route. route. every day by oral route. senna 8.6 senna 8.6 No senna 8.6 [facility] mg tablet mg tablet mg tablet Medical TAKE 1 TAKE 1 TAKE 1 TABLET BY TABLET BY TABLET BY MOUTH ONCE MOUTH ONCE MOUTH ONCE DAILY DAILY DAILY tamsulosin tamsulosin No tamsulosin [facility] 0.4 mg 0.4 mg 0.4 mg Medical capsule capsule capsule Take 1 Take 1 Take 1 capsule capsule capsule every day every day every day by oral by oral by oral route for route for route for 30 days. 30 days. 30 days. acetaminoph acetaminoph No 1 Q8H acetaminop [facility] en 300 en 300 hen 300 Medical mg-codeine mg-codeine mg-codeine 30 mg 30 mg 30 mg tablet Take tablet Take tablet 1 tablet 1 tablet Take 1 every 8 every 8 tablet hours by hours by every 8 oral route oral route hours by as needed as needed oral route for 10 for 10 as needed days. days. for 10 days. acetylcyste acetylcyste No acetylcyst [facility] ine 100 ine 100 eine 100 Medic al mg/mL (10 mg/mL (10 mg/mL (10 %) solution %) solution %) solution albuterol albuterol No albuterol [facility] sulfate 2.5 sulfate 2.5 sulfate Medical mg/3 mL mg/3 mL 2.5 mg/3 (0.083 %) (0.083 %) mL (0.083 solution solution %) for for solution nebulizatio nebulizatio for n n nebulizati on albuterol albuterol No .5mL BID albuterol [facility] sulfate sulfate sulfate Medica l concentrate concentrate concentrat 2.5 mg/0.5 2.5 mg/0.5 e 2.5 mL solution mL solution mg/0.5 mL for for solution nebulizatio nebulizatio for n Inhale n Inhale nebulizati 0.5 mL 0.5 mL on Inhale twice a day twice a day 0.5 mL by by twice a nebulizatio nebulizatio day by n route. n route. nebulizati on route. amlodipine amlodipine No amlodipine [facility] 10 mg 10 mg 10 mg Medical tablet TAKE tablet TAKE tablet 1 TABLET BY 1 TABLET BY TAKE 1 MOUTH ONCE MOUTH ONCE TABLET BY DAILY DAILY MOUTH ONCE DAILY aspirin 81 aspirin 81 No aspirin 81 [facility] mg mg mg Medical tablet,nina tablet,nina tablet,del yed release yed release ayed TAKE 1 TAKE 1 release TABLET BY TABLET BY TAKE 1 MOUTH ONCE MOUTH ONCE TABLET BY DAILY DAILY MOUTH ONCE DAILY atorvastati atorvastati No atorvastat [facility] n 20 mg n 20 mg in 20 mg Medic al tablet Take tablet Take tablet 1 tablet 1 tablet Take 1 every day every day tablet by oral by oral every day route for route for by oral 30 days. 30 days. route for 30 days. budesonide budesonide No budesonide [facility] 0.5 mg/2 mL 0.5 mg/2 mL 0.5 mg/2 Medical suspension suspension mL for for suspension nebulizatio nebulizatio for n USE 1 n USE 1 nebulizati VIAL IN VIAL IN on USE 1 NEBULIZER NEBULIZER VIAL IN TWICE DAILY TWICE DAILY NEBULIZER TWICE DAILY carvedilol carvedilol No carvedilol [facility] 25 mg 25 mg 25 mg Medical tablet TAKE tablet TAKE tablet 1 TABLET BY 1 TABLET BY TAKE 1 MOUTH TWICE MOUTH TWICE TABLET BY DAILY WITH DAILY WITH MOUTH FOOD FOOD TWICE DAILY WITH FOOD cholecalcif cholecalcif No cholecalci [facility] ray ray ferol Medical (vitamin (vitamin (vitamin D3) 12.5 D3) 12.5 D3) 12.5 mcg/5 mL mcg/5 mL mcg/5 mL (500 unit/5 (500 unit/5 (500 mL) oral mL) oral unit/5 mL) liquid GIVE liquid GIVE oral 10ML VIA 10ML VIA liquid GTUBE TWICE GTUBE TWICE GIVE 10ML A DAY A DAY VIA GTUBE TWICE A DAY Dialyvite Dialyvite No Dialyvite [facility] 800 0.8 mg 800 0.8 mg 800 0.8 mg Medical tablet TAKE tablet TAKE tablet 1 TABLET BY 1 TABLET BY TAKE 1 MOUTH ONCE MOUTH ONCE TABLET BY DAILY DAILY MOUTH ONCE DAILY doxycycline doxycycline No 1capsul BID doxycyclin [facility] hyclate 100 hyclate 100 e(s) e hyclate Medical mg capsule mg capsule 100 mg Take 1 Take 1 capsule capsule capsule Take 1 twice a day twice a day capsule by oral by oral twice a route for route for day by 10 days. 10 days. oral route for 10 days. escitalopra escitalopra No escitalopr [facility] m 10 mg m 10 mg am 10 mg Medic al tablet TAKE tablet TAKE tablet 1 TABLET BY 1 TABLET BY TAKE 1 MOUTH ONCE MOUTH ONCE TABLET BY DAILY DAILY MOUTH ONCE DAILY ferrous ferrous No 5mL BID ferrous [facility] sulfate 300 sulfate 300 sulfate Medical mg (60 mg mg (60 mg 300 mg (60 iron)/5 mL iron)/5 mL mg iron)/5 oral liquid oral liquid mL oral Take 5 mL Take 5 mL liquid twice a day twice a day Take 5 mL by oral by oral twice a route. route. day by oral route. first-omepr first-omepr No first-omep [facility] azole azole razole Medical 2mg/ml emre 2mg/ml emre 2mg/ml emre TAKE 10 ML TAKE 10 ML TAKE 10 ML BY MOUTH BY MOUTH BY MOUTH ONCE DAILY ONCE DAILY ONCE DAILY 30 MINUTES 30 MINUTES 30 MINUTES BEFORE BEFORE BEFORE MORNING MORNING MORNING MEAL MEAL MEAL insulin insulin No insulin [facility] glargine glargine glargine Med ical (U-100) 100 (U-100) 100 (U-100) unit/mL (3 unit/mL (3 100 mL) mL) unit/mL (3 subcutaneou subcutaneou mL) s pen s pen subcutaneo Inject 25 Inject 25 us pen units twice units twice Inject 25 a day by a day by units subcutaneou subcutaneou twice a s route. s route. day by subcutaneo us route. insulin insulin No insulin [facility] lispro lispro lispro Medical (U-100) 100 (U-100) 100 (U-100) unit/mL unit/mL 100 subcutaneou subcutaneou unit/mL s pen s pen subcutaneo Inject by Inject by us pen sub-q sub-q Inject by route. route. sub-q route. ipratropium ipratropium No ipratropiu [facility] 0.5 0.5 m 0.5 Medical mg-albutero mg-albutero mg-albuter l 3 mg (2.5 l 3 mg (2.5 ol 3 mg mg base)/3 mg base)/3 (2.5 mg mL mL base)/3 mL nebulizatio nebulizatio nebulizati n soln n soln on soln Inhale 3 mL Inhale 3 mL Inhale 3 every 6 every 6 mL every 6 hours by hours by hours by nebulizatio nebulizatio nebulizati n route as n route as on route needed. needed. as needed. ipratropium ipratropium No ipratropiu [facility] bromide bromide m bromide [facility]i michelle 0.02 % 0.02 % 0.02 % solution solution solution for for for inhalation inhalation inhalation Inhale 2.5 Inhale 2.5 Inhale 2.5 mL twice a mL twice a mL twice a day by day by day by inhalation inhalation inhalation route. route. route. lactulose lactulose No lactulose [facility] 10 gram/15 10 gram/15 10 gram/15 Medical mL oral mL oral mL oral solution solution solution levothyroxi levothyroxi No levothyrox [facility] ne 25 mcg ne 25 mcg ine 25 mcg Medical tablet TAKE tablet TAKE tablet 1 TABLET BY 1 TABLET BY TAKE 1 MOUTH ONCE MOUTH ONCE TABLET BY DAILY IN DAILY IN MOUTH ONCE THE MORNING THE MORNING DAILY IN ON AN EMPTY ON AN EMPTY THE STOMACH STOMACH MORNING ON AN EMPTY STOMACH nystatin nystatin No nystatin Della via 100,000 100,000 100,000 Medica l unit/gram unit/gram unit/gram topical topical topical ointment ointment ointment omeprazole omeprazole No 1capsul Q1D omeprazole [facility] 10 mg 10 mg e(s) 10 mg Medical capsule,del capsule,del capsule,de ayed ayed layed release release release Take 1 Take 1 Take 1 capsule capsule capsule every day every day every day by oral by oral by oral route for route for route for 30 days. 30 days. 30 days. ondansetron ondansetron No 1 Q8H ondansetro [facility] 4 mg 4 mg n 4 mg Medical disintegrat disintegrat disintegra ing tablet ing tablet ting Place 1 Place [address] 1 every 8 every 8 tablet hours by hours by every 8 oral route oral route hours by as needed. as needed. oral route as needed. potassium potassium No 20milli Q1D potassium [facility] chloride 20 chloride 20 equival chloride Medical mEq/15 mL mEq/15 mL ent(s) 20 mEq/15 oral liquid oral liquid mL oral Take 20 Take 20 liquid milliequiva milliequiva Take 20 lents every lents every milliequiv day by oral day by oral alents route. route. every day by oral route. senna 8.6 senna 8.6 No senna 8.6 [facility] mg tablet mg tablet mg tablet Medical TAKE 1 TAKE 1 TAKE 1 TABLET BY TABLET BY TABLET BY MOUTH ONCE MOUTH ONCE MOUTH ONCE DAILY DAILY DAILY tamsulosin tamsulosin No tamsulosin [facility] 0.4 mg 0.4 mg 0.4 mg Medical capsule capsule capsule Take 1 Take 1 Take 1 capsule capsule capsule every day every day every day by oral by oral by oral route for route for route for 30 days. 30 days. 30 days. acetaminoph acetaminoph No 1 Q8H acetaminop [facility] en 300 en 300 hen 300 Medical mg-codeine mg-codeine mg-codeine 30 mg 30 mg 30 mg tablet Take tablet Take tablet 1 tablet 1 tablet Take 1 every 8 every 8 tablet hours by hours by every 8 oral route oral route hours by as needed as needed oral route for 10 for 10 as needed days. days. for 10 days. acetylcyste acetylcyste No acetylcyst [facility] ine 100 ine 100 eine 100 Medic al mg/mL (10 mg/mL (10 mg/mL (10 %) solution %) solution %) solution albuterol albuterol No albuterol [facility] sulfate 2.5 sulfate 2.5 sulfate Medical mg/3 mL mg/3 mL 2.5 mg/3 (0.083 %) (0.083 %) mL (0.083 solution solution %) for for solution nebulizatio nebulizatio for n n nebulizati on albuterol albuterol No .5mL BID albuterol [facility] sulfate sulfate sulfate Medica l concentrate concentrate concentrat 2.5 mg/0.5 2.5 mg/0.5 e 2.5 mL solution mL solution mg/0.5 mL for for solution nebulizatio nebulizatio for n Inhale n Inhale nebulizati 0.5 mL 0.5 mL on Inhale twice a day twice a day 0.5 mL by by twice a nebulizatio nebulizatio day by n route. n route. nebulizati on route. amlodipine amlodipine No amlodipine [facility] 10 mg 10 mg 10 mg Medical tablet TAKE tablet TAKE tablet 1 TABLET BY 1 TABLET BY TAKE 1 MOUTH ONCE MOUTH ONCE TABLET BY DAILY DAILY MOUTH ONCE DAILY aspirin 81 aspirin 81 No aspirin 81 [facility] mg mg mg Medical tablet,nina tablet,nina tablet,del yed release yed release ayed TAKE 1 TAKE 1 release TABLET BY TABLET BY TAKE 1 MOUTH ONCE MOUTH ONCE TABLET BY DAILY DAILY MOUTH ONCE DAILY atorvastati atorvastati No atorvastat [facility] n 20 mg n 20 mg in 20 mg Medic al tablet Take tablet Take tablet 1 tablet 1 tablet Take 1 every day every day tablet by oral by oral every day route for route for by oral 30 days. 30 days. route for 30 days. budesonide budesonide No budesonide [facility] 0.5 mg/2 mL 0.5 mg/2 mL 0.5 mg/2 Medical suspension suspension mL for for suspension nebulizatio nebulizatio for n USE 1 n USE 1 nebulizati VIAL IN VIAL IN on USE 1 NEBULIZER NEBULIZER VIAL IN TWICE DAILY TWICE DAILY NEBULIZER TWICE DAILY carvedilol carvedilol No carvedilol [facility] 25 mg 25 mg 25 mg Medical tablet TAKE tablet TAKE tablet 1 TABLET BY 1 TABLET BY TAKE 1 MOUTH TWICE MOUTH TWICE TABLET BY DAILY WITH DAILY WITH MOUTH FOOD FOOD TWICE DAILY WITH FOOD cholecalcif cholecalcif No cholecalci [facility] ray ray ferol Medical (vitamin (vitamin (vitamin D3) 12.5 D3) 12.5 D3) 12.5 mcg/5 mL mcg/5 mL mcg/5 mL (500 unit/5 (500 unit/5 (500 mL) oral mL) oral unit/5 mL) liquid GIVE liquid GIVE oral 10ML VIA 10ML VIA liquid GTUBE TWICE GTUBE TWICE GIVE 10ML A DAY A DAY VIA GTUBE TWICE A DAY Dialyvite Dialyvite No Dialyvite [facility] 800 0.8 mg 800 0.8 mg 800 0.8 mg Medical tablet TAKE tablet TAKE tablet 1 TABLET BY 1 TABLET BY TAKE 1 MOUTH ONCE MOUTH ONCE TABLET BY DAILY DAILY MOUTH ONCE DAILY doxycycline doxycycline No 1capsul BID doxycyclin [facility] hyclate 100 hyclate 100 e(s) e hyclate Medical mg capsule mg capsule 100 mg Take 1 Take 1 capsule capsule capsule Take 1 twice a day twice a day capsule by oral by oral twice a route for route for day by 10 days. 10 days. oral route for 10 days. escitalopra escitalopra No escitalopr [facility] m 10 mg m 10 mg am 10 mg Medic al tablet TAKE tablet TAKE tablet 1 TABLET BY 1 TABLET BY TAKE 1 MOUTH ONCE MOUTH ONCE TABLET BY DAILY DAILY MOUTH ONCE DAILY ferrous ferrous No 5mL BID ferrous [facility] sulfate 300 sulfate 300 sulfate Medical mg (60 mg mg (60 mg 300 mg (60 iron)/5 mL iron)/5 mL mg iron)/5 oral liquid oral liquid mL oral Take 5 mL Take 5 mL liquid twice a day twice a day Take 5 mL by oral by oral twice a route. route. day by oral route. first-omepr first-omepr No first-omep [facility] azole azole razole Medical 2mg/ml emre 2mg/ml emre 2mg/ml emre TAKE 10 ML TAKE 10 ML TAKE 10 ML BY MOUTH BY MOUTH BY MOUTH ONCE DAILY ONCE DAILY ONCE DAILY 30 MINUTES 30 MINUTES 30 MINUTES BEFORE BEFORE BEFORE MORNING MORNING MORNING MEAL MEAL MEAL insulin insulin No insulin [facility] glargine glargine glargine Med ical (U-100) 100 (U-100) 100 (U-100) unit/mL (3 unit/mL (3 100 mL) mL) unit/mL (3 subcutaneou subcutaneou mL) s pen s pen subcutaneo Inject 25 Inject 25 us pen units twice units twice Inject 25 a day by a day by units subcutaneou subcutaneou twice a s route. s route. day by subcutaneo us route. insulin insulin No insulin [facility] lispro lispro lispro Medical (U-100) 100 (U-100) 100 (U-100) unit/mL unit/mL 100 subcutaneou subcutaneou unit/mL s pen s pen subcutaneo Inject by Inject by us pen sub-q sub-q Inject by route. route. sub-q route. ipratropium ipratropium No ipratropiu [facility] 0.5 0.5 m 0.5 Medical mg-albutero mg-albutero mg-albuter l 3 mg (2.5 l 3 mg (2.5 ol 3 mg mg base)/3 mg base)/3 (2.5 mg mL mL base)/3 mL nebulizatio nebulizatio nebulizati n soln n soln on soln Inhale 3 mL Inhale 3 mL Inhale 3 every 6 every 6 mL every 6 hours by hours by hours by nebulizatio nebulizatio nebulizati n route as n route as on route needed. needed. as needed. ipratropium ipratropium No ipratropiu [facility] bromide bromide m bromide Medi michelle 0.02 % 0.02 % 0.02 % solution solution solution for for for inhalation inhalation inhalation Inhale 2.5 Inhale 2.5 Inhale 2.5 mL twice a mL twice a mL twice a day by day by day by inhalation inhalation inhalation route. route. route. Immunizations Ordered Filled Date Status Comments Source Immunization Name Immunization Name influenza, influenza, 2018-04-24 Completed [facility] injectable, injectable, 00:00:00 quadrivalent, quadrivalent, preservative free preservative free influenza, influenza, 2018-04-24 Completed [facility] injectable, injectable, 00:00:00 quadrivalent, quadrivalent, preservative free preservative free influenza, influenza, 2018-04-24 Completed [facility] injectable, injectable, 00:00:00 quadrivalent, quadrivalent, preservative free preservative free influenza, influenza, 2018-04-24 Completed [facility] injectable, injectable, 00:00:00 quadrivalent, quadrivalent, preservative free preservative free influenza, influenza, 2018-04-24 Completed [facility] injectable, injectable, 00:00:00 quadrivalent, quadrivalent, preservative free preservative free influenza, influenza, 2018-04-24 Completed [facility] injectable, injectable, 00:00:00 quadrivalent, quadrivalent, preservative free preservative free Influenza Virus 2018-04-24 [facility] Influenza Virus 2018-04-24 [facility] Influenza Virus 2018-04-24 Completed [facility]:00 [facility] Influenza Virus 2018-04-24 Completed [facility]:00 [facility] Influenza Virus 2018-04-24 Completed [facility]:00 [facility] Influenza Virus 2018-04-24 Completed [facility] 00:00:00 [facility] Influenza Virus 2018-04-24 Completed [facility] 00:00:00 [facility] Influenza Virus 2018-04-24 Completed [facility] 00:00:00 [facility] Influenza Virus 2018-04-24 Completed [facility] 00:00:00 [facility] Influenza Virus 2018-04-24 Completed [facility] 00:00:00 [facility] Influenza Virus 2018-04-24 Completed [facility] 00:00:00 [facility] Influenza Virus 2018-04-24 Completed [facility] 00:00:00 [facility] Influenza Virus 2018-04-24 Completed [facility]+ 00:00:00 [facility] Influenza Virus 2018-04-24 Completed [facility] Vaccine Quad IM 3+ 00:00:00 [facility] Influenza Virus 2018-04-24 Completed [facility] Vaccine Quad IM 3+ 00:00:00 [facility] Influenza Virus 2018-04-24 Completed [facility] Vaccine Quad IM 3+ 00:00:00 [facility] Influenza Virus 2018-04-24 Completed [facility] Vaccine Quad IM 3+ 00:00:00 [facility] Influenza Virus 2018-04-24 Completed [facility] Vaccine Quad IM 3+ 00:00:00 [facility] Influenza Virus 2018-04-24 Completed [facility] Vaccine Quad IM 3+ 00:00:00 [facility] Influenza Virus 2018-04-24 Completed [facility] Vaccine Quad IM 3+ 00:00:00 [facility] Influenza Virus 2018-04-24 Completed [facility] Vaccine Quad IM 3+ 00:00:00 [facility] Influenza Virus 2018-04-24 Completed [facility] Vaccine Quad IM 3+ 00:00:00 [facility] Influenza Virus 2018-04-24 Completed [facility] Vaccine Quad IM 3+ 00:00:00 [facility] Influenza Virus 2018-04-24 Completed [facility] Vaccine Quad IM 3+ 00:00:00 [facility] Influenza Four-QIV 2018-04-[address] [facility] PF 3+YR IM 00:00:00 [facility] Influenza Four-QIV 2018-04-[address] [facility] PF 3+YR IM 00:00:00 [facility] Influenza Four-QIV 2018-04-[address] [facility] PF 3+YR IM 00:00:00 [facility] Influenza Four-QIV 2018-04-[address] [facility] PF 3+YR IM 00:00:00 [facility] Influenza Four-QIV 2018-04-[address] [facility] PF 3+YR IM 00:00:00 [facility] Influenza Four-QIV 2018-04-[address] [facility] PF 3+YR IM 00:00:00 [facility] Influenza Four-QIV 2018-04-[address] [facility] PF 3+YR IM 00:00:00 [facility] Influenza Four-QIV 2018-04-[address] [facility] PF 3+YR IM 00:00:00 [facility] Influenza Four-QIV 2018-04-[address] [facility] Four-QIV 2018-04-[address] [facility] PF 3+YR IM [facility] Influenza Four-QIV 2018-04-[address] [facility] PF 3+YR IM 00:[facility] Influenza Four-QIV 2018-04-[address] [facility] PF 3+YR IM 00:00:[facility] Influenza Four-QIV 2018-04-[address] [facility] PF 3+YR IM 00:00:[facility] Influenza Four-QIV 2018-04-[address] [facility] PF 3+YR IM 00:00:00 [facility] Influenza Four-QIV 2018-04-[address] [facility] PF 3+YR IM 00:00:[facility] Influenza Four-QIV 2018-04-[address] [facility] PF 3+YR IM 00:00:00 [facility] Influenza Four-QIV 2018-04-[address] [facility] PF 3+YR IM 00:[facility] Influenza Four-QIV 2018-04-[address] [facility] PF 3+YR IM 00:00:[facility] Influenza Four-QIV 2018-04-[address] [facility] PF 3+YR IM 00:00:[facility] Influenza Four-QIV 2018-04-[address] [facility] PF 3+YR IM 00:00:[facility] Influenza Four-QIV 2018-04-[address] [facility] PF 3+YR IM 00:00[facility] Influenza Four-QIV 2018-04-[address] [facility] PF 3+YR IM 00:00:00 [facility] Influenza Four-QIV 2018-04-[address] [facility] PF 3+YR IM 00:00:00 [facility] Influenza Four-QIV 2018-04-[address] [facility] PF 3+YR IM 00:00:00 [facility] Influenza Four-QIV 2018-04-[address] [facility] PF 3+YR IM 00:00:00 [facility] Influenza Four-QIV 2018-04-[address] [facility] PF 3+YR IM 00:00:00 [facility] Influenza Four-QIV 2018-04-[address] [facility] PF 3+YR IM 00:00:00 [facility] Influenza Four-QIV 2018-04-[address] [facility] PF 3+YR IM 00:00:00 [facility] Influenza Four-QIV 2018-04-[address] [facility] PF 3+YR IM 00:00:00 [facility] Influenza Four-QIV 2018-04-[address] [facility] PF 3+YR IM 00:00:00 [facility] Influenza Four-QIV 2018-04-[address] [facility] PF 3+YR IM 00:00:00 [facility] Influenza Four-QIV 2018-04-[address] [facility] PF 3+YR IM 00:00:00 [facility] Influenza Four-QIV 2018-04-[address] [facility] PF 3+YR IM 00:00:00 [facility] Influenza Four-QIV 2018-04-[address] [facility] PF 3+YR IM 00:00:00 [facility] Influenza Four-QIV 2018-04-[address] [facility] PF 3+YR IM 00:00:00 [facility] Influenza Four-QIV 2018-04-[address] [facility] PF 3+YR IM 00:00:00 [facility] Influenza Four-QIV 2018-04-[address] [facility] PF 3+YR IM 00:00:00 [facility] Influenza Four-QIV 2018-04-[address] [facility] PF 3+YR IM 00:00:00 [facility] Influenza Four-QIV 2018-04-[address] [facility] PF 3+YR IM 00:00:00 [facility] Influenza Four-QIV 2018-04-[address] [facility] PF 3+YR IM 00:00:00 [facility] Influenza Four-QIV 2018-04-[address] [facility] PF 3+YR IM 00:00:00 [facility] Influenza Virus 2015-07-08 Completed [facility] Vaccine 00:00:00 [facility] Pneumococcal 2015-07-08 Completed University o f Polysaccharide, 00:00:[address] [facility] ical PPSV23 (PNEUMOVAX) Branch Influenza Virus 2015-07-08 Completed [facility] Vaccine 00:00:00 [facility] Pneumococcal 2015-07-08 Completed [facility] f Polysaccharide, 00:00:00 [place] [facility] PPSV23 (PNEUMOVAX) Branch Influenza Virus 2015-07-08 Completed [facility] Vaccine 00:00:00 [facility] Pneumococcal 2015-07-08 Completed [facility] Polysaccharide, 00:00:00 [place] [facility] PPSV23 (PNEUMOVAX) Branch Influenza Virus 2015-07-08 Completed [facility] Vaccine 00:00:00 [facility] Pneumococcal 2015-07-08 Completed [facility] f Polysaccharide, 00:00:00 [place] [facility] PPSV23 (PNEUMOVAX) Branch Influenza Virus 2015-07-08 Completed [facility] Vaccine 00:00:00 [facility] Pneumococcal 2015-07-08 Completed [facility] f Polysaccharide, 00:00:00 [place] [facility] PPSV23 (PNEUMOVAX) Branch Influenza Virus 2015-07-08 Completed [facility] Vaccine 00:00:00 [facility] Pneumococcal 2015-07-08 Completed [facility] f Polysaccharide, 00:00:00 [place] [facility] PPSV23 (PNEUMOVAX) Branch Influenza Virus 2015-07-08 Completed [facility] Vaccine 00:00:00 [facility] Pneumococcal 2015-07-08 Completed [facility] f Polysaccharide, 00:00:00 [place] [facility] PPSV23 (PNEUMOVAX) Branch Influenza Virus 2015-07-08 Completed [facility] Vaccine 00:00:00 [facility] Pneumococcal 2015-07-08 Completed [facility] f Polysaccharide, 00:00:00 [place] [facility] PPSV23 (PNEUMOVAX) Branch Influenza Virus 2015-07-08 Completed [facility] Vaccine 00:00:00 [facility] Pneumococcal 2015-07-08 Completed [facility] o f Polysaccharide, 00:00:00 [place] [facility] PPSV23 (PNEUMOVAX) Branch Influenza Virus 2015-07-08 Completed [facility] Vaccine 00:00:00 [facility] Pneumococcal 2015-07-08 Completed [facility] o f Polysaccharide, 00:00:00 [place] [facility] PPSV23 (PNEUMOVAX) Branch Influenza Virus 2015-07-08 Completed [facility] Vaccine 00:00:00 [facility] Pneumococcal 2015-07-08 Completed [facility] o f Polysaccharide, 00:00:00 [place] [facility] PPSV23 (PNEUMOVAX) Branch Influenza Virus 2015-07-08 Completed [facility] Vaccine 00:00:00 [facility] Pneumococcal 2015-07-08 Completed [facility] o f Polysaccharide, 00:00:00 [place] [facility] PPSV23 (PNEUMOVAX) Branch Influenza Virus 2015-07-08 Completed [facility] Vaccine 00:00:00 [facility] Pneumococcal 2015-07-08 Completed [facility] o f Polysaccharide, 00:00:00 [place] [facility] PPSV23 (PNEUMOVAX) Branch Influenza Virus 2015-07-08 Completed [facility] Vaccine 00:00:00 [facility] Pneumococcal 2015-07-08 Completed [facility] o f Polysaccharide, 00:00:00 [place] [facility] PPSV23 (PNEUMOVAX) Branch Influenza Virus 2015-07-08 Completed [facility] Vaccine 00:00:00 [facility] Pneumococcal 2015-07-08 Completed [facility] o f Polysaccharide, 00:00:00 [place] [facility] PPSV23 (PNEUMOVAX) Branch Influenza Virus 2015-07-08 Completed [facility] Vaccine 00:00:00 [facility] Pneumococcal 2015-07-08 Completed [facility] o f Polysaccharide, 00:00:00 [place] [facility] PPSV23 (PNEUMOVAX) Branch Influenza Virus 2015-07-08 Completed [facility] Vaccine 00:00:00 [facility] Pneumococcal 2015-07-08 Completed [facility] o f Polysaccharide, 00:00:00 [place] [facility] PPSV23 (PNEUMOVAX) Branch Influenza Virus 2015-07-08 Completed [facility] Vaccine 00:00:00 [facility] Pneumococcal 2015-07-08 Completed [facility] o f Polysaccharide, 00:00:00 [place] [facility] PPSV23 (PNEUMOVAX) Branch Influenza Virus 2015-07-08 Completed [facility] Vaccine 00:00:00 [facility] Pneumococcal 2015-07-08 Completed [facility] o f Polysaccharide, 00:00:00 [place] [facility] PPSV23 (PNEUMOVAX) Branch Influenza Virus 2015-07-08 Completed [facility] Vaccine 00:00:00 [facility] Pneumococcal 2015-07-08 Completed [facility] o f Polysaccharide, 00:00:00 [place] [facility] PPSV23 (PNEUMOVAX) Branch Influenza Virus 2015-07-08 Completed [facility] Vaccine 00:00:00 [facility] Pneumococcal 2015-07-08 Completed [facility] o f Polysaccharide, 00:00:00 [place] [facility] PPSV23 (PNEUMOVAX) Branch Influenza Virus 2015-07-08 Completed [facility] Vaccine 00:00:00 [facility] Pneumococcal 2015-07-08 Completed [facility] o f Polysaccharide, 00:00:00 [place] [facility] PPSV23 (PNEUMOVAX) Branch Influenza Virus 2015-07-08 Completed [facility] Vaccine 00:00:00 [facility] Pneumococcal 2015-07-08 Completed [facility] o f Polysaccharide, 00:00:[address] [facility] ical PPSV23 (PNEUMOVAX) Branch Influenza Virus 2015-07-08 Completed [facility] Vaccine 00:00:00 [facility] Pneumococcal 2015-07-08 Completed University o f Polysaccharide, 00:00:[address] [facility] ical PPSV23 (PNEUMOVAX) Branch Influenza Four-QIV Unknown Completed [facility] PF 3+YR [facility] Influenza Four-QIV Unknown Completed [facility] PF 3+YR [facility] Influenza Four-QIV Unknown Completed [facility] PF 3+YR [facility] Influenza Four-QIV Unknown Completed [facility] 3+YR [facility] Influenza Four-QIV Unknown Completed [facility] PF 3+YR [facility] Influenza Four-QIV Unknown Completed [facility] PF 3+YR [facility] influenza virus Unknown Completed [facility] vaccine, inactivated pneumococcal Unknown Completed [facility] 23-valent vaccine pneumococcal Unknown Completed [facility] 23-valent vaccine influenza virus [facility], [facility] Influ[facility] Four-QIV Unknown Com[facility] 3[facility]YR [facility] Vital Signs Vital Name Observation Time Observation Value Comments Source WEIGHT 2022-12-08 07:30:00 69.003 kg WEIGHT 2022-12-04 05:50:00 69.003 kg WEIGHT 2022-12-03 06:00:00 69 kg HEIGHT 2022-11-30 05:19:00 182.9 cm WEIGHT 2022-11-30 05:19:00 68.8 kg WEIGHT 2022-12-08 07:30:00 69.003 kg WEIGHT 2022-12-04 05:50:00 69.003 kg WEIGHT 2022-12-03 06:00:00 69 kg HEIGHT 2022-11-30 05:19:00 182.9 cm WEIGHT 2022-11-30 05:19:00 68.8 kg WEIGHT 2022-12-08 07:30:00 69.003 kg WEIGHT 2022-12-04 05:50:00 69.003 kg WEIGHT 2022-12-03 06:00:00 69 kg HEIGHT 2022-11-30 05:19:00 182.9 cm WEIGHT 2022-11-30 05:19:00 68.8 kg BP Diastolic 2022-11-11 00:00:00 79 mm[Hg] [facility] Height 2022-11-11 00:00:00 72 [in_i] [facility] BMI (Body Mass 2022-11-11 00:00:00 22.7 kg/m2 [facility] Index) BP Systolic 2022-11-11 00:00:00 140 mm[Hg] [facility] Body Weight 2022-11-11 00:00:00 2676 [oz_av] [facility] BP Diastolic 2022-11-02 00:00:00 91 mm[Hg] [facility] Height 2022-11-02 00:00:00 72 [in_i] [facility] BMI (Body Mass 2022-11-02 00:00:00 22.7 kg/m2 [facility] Index) BP Systolic 2022-11-02 00:00:00 138 mm[Hg] [facility] Body Weight 2022-11-02 00:00:00 2676 [oz_av] [facility] BP Diastolic 2022-10-28 00:00:00 74 mm[Hg] [facility] Height 2022-10-28 00:00:00 72 [in_i] [facility] BMI (Body Mass 2022-10-28 00:00:00 21.7 kg/m2 [facility] Index) BP Systolic 2022-10-28 00:00:00 142 mm[Hg] [facility] Body Weight 2022-10-28 00:00:00 2560 [oz_av] [facility] BP Diastolic 2022-10-26 00:00:00 78 mm[Hg] [facility] Height 2022-10-26 00:00:00 72 [in_i] [facility] BMI (Body Mass 2022-10-26 00:00:00 23.1 kg/m2 [facility] Index) BP Systolic 2022-10-26 00:00:00 148 mm[Hg] [facility] Body Weight 2022-10-26 00:00:00 2720 [oz_av] [facility] BP Diastolic 2022-10-21 00:00:00 96 mm[Hg] [facility] Height 2022-10-21 00:00:00 72 [in_i] [facility] BMI (Body Mass 2022-10-21 00:00:00 23.1 kg/m2 [facility] Index) BP Systolic 2022-10-21 00:00:00 127 mm[Hg] [facility] Body Weight 2022-10-21 00:00:00 2720 [oz_av] [facility] BP Diastolic 2022-10-18 00:00:00 74 mm[Hg] [facility] Height 2022-10-18 00:00:00 72 [in_i] [facility] BMI (Body Mass 2022-10-18 00:00:00 23.5 kg/m2 [facility]) BP Systolic 2022-10-18 00:00:00 138 mm[Hg] [facility] Body Weight 2022-10-18 00:00:00 2774 [oz_av] [facility] BP Diastolic 2022-10-11 00:00:00 80 mm[Hg] [facility] Height 2022-10-11 00:00:00 72 [in_i] [facility] BMI (Body Mass 2022-10-11 00:00:00 23.1 kg/m2 [facility]) BP Systolic 2022-10-11 00:00:00 132 mm[Hg] [facility] Body Weight 2022-10-11 00:00:00 2726 [oz_av] [facility] BP Diastolic 2022-10-07 00:00:00 74 mm[Hg] [facility] Height 2022-10-07 00:00:00 72 [in_i] [facility] BMI (Body Mass 2022-10-07 00:00:00 23.1 kg/m2 [facility]) BP Systolic 2022-10-07 00:00:00 132 mm[Hg] [facility] Body Weight 2022-10-07 00:00:00 2726 [oz_av] [facility] BP Diastolic 2022-10-04 00:00:00 84 mm[Hg] [facility] Height 2022-10-04 00:00:00 72 [in_i] [facility] BMI (Body Mass 2022-10-04 00:00:00 23.1 kg/m2 [facility]) BP Systolic 2022-10-04 00:00:00 121 mm[Hg] [facility] Body Weight 2022-10-04 00:00:00 2726 [oz_av] [facility] BP Diastolic 2022-09-30 00:00:00 89 mm[Hg] [facility] Height 2022-09-30 00:00:00 72 [in_i] [facility] BMI (Body Mass 2022-09-30 00:00:00 23.1 kg/m2 [facility]) BP Systolic 2022-09-30 00:00:00 139 mm[Hg] [facility] Body Weight 2022-09-30 00:00:00 2720 [oz_av] [facility] BP Diastolic 2022-09-28 00:00:00 72 mm[Hg] [facility] Height 2022-09-28 00:00:00 72 [in_i] [facility] BMI (Body Mass 2022-09-28 00:00:00 24.2 kg/m2 [facility]) BP Systolic 2022-09-28 00:00:00 140 mm[Hg] [facility] Body Weight 2022-09-28 00:00:00 2852 [oz_av] [facility] BP Diastolic 2022-09-23 00:00:00 61 mm[Hg] [facility] Height 2022-09-23 00:00:00 72 [in_i] [facility] BMI (Body Mass 2022-09-23 00:00:00 24.2 kg/m2 [facility]) BP Systolic 2022-09-23 00:00:00 149 mm[Hg] [facility] Body Weight 2022-09-23 00:00:00 2852 [oz_av] [facility] BP Diastolic 2022-09-20 00:00:00 71 mm[Hg] [facility] Height 2022-09-20 00:00:00 72 [in_i] [facility] BMI (Body Mass 2022-09-20 00:00:00 24.2 kg/m2 [facility] Index) BP Systolic 2022-09-20 00:00:00 138 mm[Hg] [facility] Body Weight 2022-09-20 00:00:00 2852 [oz_av] [facility] BP Diastolic 2022-09-16 00:00:00 74 mm[Hg] [facility] Height 2022-09-16 00:00:00 72 [in_i] [facility] BMI (Body Mass 2022-09-16 00:00:00 24.2 kg/m2 [facility] Index) BP Systolic 2022-09-16 00:00:00 138 mm[Hg] [facility] Body Weight 2022-09-16 00:00:00 2854 [oz_av] [facility] BP Diastolic 2022-09-13 00:00:00 85 mm[Hg] [facility] BP Systolic 2022-09-13 00:00:00 147 mm[Hg] [facility] BP Diastolic 2022-09-10 00:00:00 76 mm[Hg] [facility] Height 2022-09-10 00:00:00 72 [in_i] [facility] BMI (Body Mass 2022-09-10 00:00:00 24.2 kg/m2 [facility] Index) BP Systolic 2022-09-10 00:00:00 138 mm[Hg] [facility] Body Weight 2022-09-10 00:00:00 2854 [oz_av] [facility] Heart rate 2022-09-05 23:47:00 74 /min [facility] Respiratory rate 2022-09-05 23:47:00 18 /min [facility] 2022-09-05 23:47:00 97 /min Uni versity of in Arterial blood [facility] by Pulse oximetry Branch Systolic blood 2022-09-05 21:48:00 103 mm[Hg] Univer sity of [facility] Diastolic blood 2022-09-05 21:48:00 64 mm[Hg] Unive rsity of [facility] Body temperature 2022-09-05 21:47:00 36.39 Vivian [facility] [place] [facility] Body weight 2022-09-03 10:30:00 87.771 kg [facility] [place] [facility] BMI 2022-09-03 10:30:00 26.24 kg/m2 [facility] [place] [facility] Body height 2022-08-16 20:04:00 182.9 cm [facility] [place] [facility] Systolic blood 2022-08-06 17:30:00 135 mm[Hg] Univer sity of [facility] [place] [facility] Diastolic blood 2022-08-06 17:30:00 72 mm[Hg] Unive rsity of [facility] [place] [facility] Heart rate 2022-08-06 17:30:00 79 /min [facility] [place] [facility] Respiratory rate 2022-08-06 17:30:00 15 /min [facility] [place] [facility] Oxygen saturation 2022-08-06 17:30:00 100 /min Uni versity of in Arterial blood [place] [facility] by Pulse oximetry [facility] Body temperature 2022-08-06 15:15:00 36.89 Vivian [facility] [place] [facility] Body height 2022-08-06 15:15:00 182.9 cm [facility] [place] [facility] Body weight 2022-08-06 15:15:00 79.379 kg [facility] [place] [facility] BMI 2022-08-06 15:15:00 23.73 kg/m2 [facility] [place] [facility] Systolic blood 2022-07-20 22:00:00 136 mm[Hg] Univer [facility]ity [facility] [place] [facility] Diastolic blood 2022-07-20 22:00:00 66 mm[Hg] Unive rsity of [facility] [place] [facility] Heart rate 2022-07-20 22:00:00 78 /min [facility] [place] [facility] Respiratory rate 2022-07-20 22:00:00 17 /min [facility] [place] [facility] Oxygen saturation 2022-07-20 22:00:00 97 /min Uni versity of in Arterial blood [place] [facility] by Pulse oximetry [facility] Body temperature 2022-07-20 19:53:00 36.17 Vivian [facility] [place] [facility] Body weight 2022-07-20 19:53:00 79.379 kg [facility] [place] [facility] BMI 2022-07-20 19:53:00 23.73 kg/m2 [facility] [place] [facility] Systolic blood 2022-07-16 16:00:00 149 mm[Hg] Univer [facility] [place] [facility] Diastolic blood 2022-07-16 16:00:00 65 mm[Hg] Unive rsity [facility] [place] [facility] Heart rate 2022-07-16 16:00:00 85 /min [facility] [place] [facility] Respiratory rate 2022-07-16 16:00:00 14 /min [facility] [place] [facility] Oxygen saturation 2022-07-16 16:00:00 96 /min Uni versity of in Arterial blood [place] [facility] by Pulse oximetry [facility] Body temperature 2022-07-16 14:01:00 36.56 Vivian [facility] [place] [facility] Body weight 2022-07-16 14:01:00 79.379 kg [facility] [place] [facility] BMI 2022-07-16 14:01:00 23.73 kg/m2 [facility] [place] [facility] Systolic blood 2022-07-09 02:00:00 137 mm[Hg] [facility] [place] [facility] Diastolic blood 2022-07-09 02:00:00 69 mm[Hg] Unive rsity [facility] [place] [facility] Heart rate 2022-07-09 02:00:00 82 /min [facility] [place] [facility] Respiratory rate 2022-07-09 02:00:00 17 /min [facility] [place] [facility] Oxygen saturation 2022-07-09 02:00:00 100 /min Uni versity of in Arterial blood [place] [facility] by Pulse oximetry [facility] Body temperature 2022-07-08 17:54:00 36 Vivian [facility] [place] [facility] Body height 2022-07-08 17:54:00 182.9 cm [facility] [place] [facility] Body weight 2022-07-08 17:54:00 84.369 kg [facility] [place] [facility] BMI 2022-07-08 17:54:00 25.23 kg/m2 [facility] [place] [facility] Systolic blood 2022-05-24 16:28:00 118 mm[Hg] [facility] [place] [facility] Diastolic blood 2022-05-24 16:28:00 65 mm[Hg] Unive rsity [facility] [place] [facility] Heart rate 2022-05-24 16:28:00 83 /min [facility] [place] [facility] Respiratory rate 2022-05-24 16:28:00 22 /min [facility] [place] [facility] Body height 2022-05-24 16:28:00 182.9 cm [facility] [place] [facility] Body weight 2022-05-24 16:28:00 84.369 kg [facility] [place] [facility] BMI 2022-05-24 16:28:00 25.23 kg/m2 [facility] [place] [facility] Oxygen saturation 2022-05-24 16:28:00 100 /min 6 liters O2 Uni versity of in Arterial blood [place] [facility] by Pulse oximetry [facility] Systolic blood 2022-04-27 17:02:00 125 mm[Hg] [facility] [place] [facility] Diastolic blood 2022-04-27 17:02:00 84 mm[Hg] Unive rsity of [facility] Heart rate 2022-04-27 17:02:00 78 /min [facility] [place] [facility] Body temperature 2022-04-27 17:02:00 35.83 Vivian [facility] [place] [facility] Respiratory rate 2022-04-27 17:02:00 18 /min [facility] [place] [facility] Oxygen saturation 2022-04-27 17:02:00 98 /min Uni versity of in Arterial blood [place] [facility] by Pulse oximetry [facility] Body weight 2022-04-27 08:53:00 83.462 kg [facility] [place] [facility] BMI 2022-04-27 08:53:00 24.95 kg/m2 [facility] [place] [facility] Body height 2022-04-22 03:44:00 182.9 cm [facility] [place] [facility] Systolic blood 2022-04-26 14:28:00 137 mm[Hg] [facility] [place] [facility] Diastolic blood 2022-04-26 14:28:00 69 mm[Hg] [facility] [place] [facility] Heart rate 2022-04-26 14:28:00 77 /min [facility] [place] [facility] Respiratory rate 2022-04-26 14:28:00 11 /min [facility] [place] [facility] Oxygen saturation 2022-04-26 14:28:00 98 /min Uni versity of in Arterial blood [facility] by Pulse oximetry Branch Body temperature 2022-04-26 14:25:00 36.61 Vivian [facility] Body weight 2022-04-26 09:03:00 82.963 kg Universi ty [facility] BMI 2022-04-26 09:03:00 24.95 kg/m2 [facility] Body height 2022-04-22 03:44:00 182.9 cm [facility]i [facility] Systolic blood 2021-11-22 21:37:00 142 mm[Hg] Univer [facility]ity of [facility] Diastolic blood 2021-11-22 21:37:00 84 mm[Hg] [facility]ive rsity of [facility] Heart rate 2021-11-22 21:37:00 77 /min [facility] Body temperature 2021-11-22 20:44:00 36.17 Vivian [facility] Body height 2021-11-22 20:44:00 182.9 cm [facility] Body weight 2021-11-22 20:44:00 102.513 kg [facility] BMI 2021-11-22 20:44:00 30.65 kg/m2 [facility] Oxygen saturation 2021-11-22 20:44:00 97 /min Uni versity of in Arterial blood [facility] by Pulse oximetry [place] Systolic blood 2022-12-08 12:30:00 121 mm[Hg] [facility] Diastolic blood 2022-12-08 12:30:00 56 mm[Hg] [facility] Heart rate 2022-12-08 12:30:00 77 /min [facility] Body temperature 2022-12-08 12:30:00 36.33 Vivian [facility] Respiratory rate 2022-12-08 12:30:00 20 /min [facility] Oxygen saturation 2022-12-08 12:30:00 96 /min [facility] in Arterial blood [facility] nter by Pulse oximetry Body weight 2022-12-08 07:30:00 69.003 kg [facility] BMI 2022-12-08 07:30:00 20.63 kg/m2 [facility] Oxygen saturation 2022-12-06 09:30:00 95 /min [facility] Arterial blood Medical nter by Pulse oximetry Heart rate 2022-12-06 09:29:00 84 /min [facility] Respiratory rate 2022-12-06 09:29:00 20 /min [facility] Systolic blood 2022-12-06 08:00:00 157 mm[Hg] [facility] Diastolic blood 2022-12-06 08:00:00 72 mm[Hg] [facility] Body temperature 2022-12-06 08:00:00 36.72 Vivian [facility] Oxygen saturation 2022-12-05 12:28:00 93 /min [facility] blood Medical nter by Pulse oximetry Systolic blood 2022-12-05 12:00:00 124 mm[Hg] [facility] Diastolic blood 2022-12-05 12:00:00 59 mm[Hg] [facility] Heart rate 2022-12-05 12:00:00 86 /min [facility] Body temperature 2022-12-05 12:00:00 36.5 Vivian [facility] Respiratory rate 2022-12-05 12:00:00 18 /min [facility] Body weight 2022-12-04 05:50:00 69.003 kg [facility] BMI 2022-12-04 05:50:00 20.63 kg/m2 [facility] Systolic blood 2022-12-01 16:05:00 111 mm[Hg] [facility] Diastolic blood 2022-12-01 16:05:00 57 mm[Hg] [facility] Heart rate 2022-12-01 16:05:00 92 /min [facility] Body temperature 2022-12-01 16:05:00 37.72 Vivian [facility] Respiratory rate 2022-12-01 16:05:00 30 /min [facility] Oxygen saturation 2022-12-01 16:05:00 94 /min [facility] Arterial blood [facility] nter by Pulse oximetry Heart rate 2022-11-30 08:35:00 89 /min [facility] Respiratory rate 2022-11-30 08:35:00 30 /min [facility] Oxygen saturation 2022-11-30 08:35:00 95 /min [facility] Arterial blood Medical nter by Pulse oximetry Body temperature 2022-11-30 08:17:00 38.61 Vivian [facility] Systolic blood 2022-11-30 08:03:00 105 mm[Hg] [facility] Diastolic blood 2022-11-30 08:03:00 58 mm[Hg] [facility] Body height 2022-11-30 05:19:00 182.9 cm [facility] Body weight 2022-11-30 05:19:00 68.8 kg [facility] BMI 2022-11-30 05:19:00 20.57 kg/m2 [facility] Heart Rate 2022-03-15 15:17:05 [facility] Rate 2022-03-15 15:17:05 [facility] Systolic (mm Hg) 2022-03-15 15:17:00 [facility] Diastolic (mm Hg) 2022-03-15 15:17:00 [facility] Heart Rate 2022-03-15 15:17:00 [facility] Temperature Oral 2022-03-15 15:16:54 98.4 F Isidro [facility] (F) Heart Rate 2022-03-15 11:58:35 [facility] Respitory Rate 2022-03-15 11:58:35 [facility] Temperature Oral 2022-03-15 11:58:28 99 F Isidro [facility] (F) Systolic (mm Hg) 2022-03-15 11:57:51 [facility] Diastolic (mm Hg) 2022-03-15 11:57:51 [facility] Systolic (mm Hg) 2022-03-15 09:06:16 [facility]ro [facility] Diastolic (mm Hg) 2022-03-15 09:06:16 [facility] Temperature Oral 2022-03-15 05:33:34 98.8 F Isidro [facility] (F) Respitory Rate 2022-03-14 11:17:57 [facility] Heart Rate 2022-03-07 05:14:06 [facility] Systolic (mm Hg) 2022-03-07 05:13:51 [facility]ro [facility] Diastolic (mm Hg) 2022-03-07 05:13:51 [facility] Heart Rate 2022-03-07 05:13:51 [facility] Heart Rate 2022-03-07 00:02:00 [facility] Systolic (mm Hg) 2022-03-07 00:01:40 [facility]ro [facility] Diastolic (mm Hg) 2022-03-07 00:01:40 [facility] Temperature Oral 2022-03-06 20:35:58 98.3 F Isidro [facility] (F) Systolic (mm Hg) 2022-03-06 20:35:44 [facility]ro [facility] Diastolic (mm Hg) 2022-03-06 20:35:44 [facility] Temperature Oral 2022-03-06 16:56:47 98.3 F Isidro [facility] (F) Temperature Oral 2022-03-06 12:44:46 98.6 F Is[facility]ro [facility] (F) Respitory Rate 2022-03-05 21:13:15 [facility] Respitory Rate 2022-03-05 18:25:00 [facility] Respitory Rate 2022-03-05 16:21:24 [facility] Height 2022-03-03 22:33:00 182.88 cm [facility] Weight 2022-03-03 22:33:00 [facility] Height 2022-03-03 05:47:00 182.88 cm [facility] Weight 2022-03-03 05:47:00 [facility] BMI Calculated 2022-03-03 05:47:00 [facility] Height 2022-03-03 00:04:00 182.88 cm [facility] BMI Calculated 2022-03-03 00:04:00 [facility] Weight 2022-03-03 00:04:00 [facility] Respitory Rate 2022-01-25 01:00:00 [facility] Systolic (mm Hg) 2022-01-25 01:00:00 Isidro [facility] Diastolic (mm Hg) 2022-01-25 01:00:00 [facility] Height 2022-01-25 00:43:00 182.88 cm [facility] Respitory Rate 2022-01-25 00:00:00 [facility] Systolic (mm Hg) 2022-01-25 00:00:00 [facility]ro [facility] Diastolic (mm Hg) 2022-01-25 00:00:00 [facility] Respitory Rate 2022-01-24 23:45:00 [facility] Systolic (mm Hg) 2022-01-24 23:45:00 [facility]ro [facility] Diastolic (mm Hg) 2022-01-24 23:45:00 [facility] Height 2022-01-24 20:33:00 182.88 cm [facility] Height 2022-01-24 18:00:00 182.88 cm [facility] Temperature Oral 2022-01-17 04:59:00 98.7 F Is[facility]ro [facility] (F) Temperature Oral 2022-01-12 00:57:00 99.6 F Isidro [facility] (F) Weight 2022-01-11 07:38:00 [facility] Weight 2022-01-05 12:08:00 [facility] Respitory Rate 2022-01-03 07:00:00 [facility] Systolic (mm Hg) 2022-01-03 07:00:00 [facility]ro [facility] Diastolic (mm Hg) 2022-01-03 07:00:00 [facility] Respitory Rate 2022-01-03 06:00:00 [facility] Systolic (mm Hg) 2022-01-03 06:00:00 [facility]ro [facility] Diastolic (mm Hg) 2022-01-03 06:00:00 [facility] Respitory Rate 2022-01-03 05:00:00 [facility] Systolic (mm Hg) 2022-01-03 05:00:00 Is[facility]ro [facility] Diastolic (mm Hg) 2022-01-03 05:00:00 [facility] Height 2022-01-03 04:35:00 182.88 cm [facility] Height 2022-01-03 01:04:00 182.88 cm [facility] Height 2022-01-02 22:25:00 182.88 cm [facility] Weight 2022-01-02 22:25:00 [facility] BMI Calculated 2022-01-02 22:25:00 [facility] Temperature Oral 2022-01-02 01:24:00 98.4 F Isidro [facility] (F) Temperature Oral 2022-01-01 00:53:00 97.5 F Isidro [facility] (F) Temperature Oral 2021-12-31 21:00:00 98.4 F Siidro [facility] (F) Weight 2021-12-30 19:48:00 [facility] BMI Calculated 2021-12-30 19:48:00 [facility] BMI Calculated 2021-12-30 15:24:00 [facility] Weight 2021-12-30 15:24:00 [facility] Heart Rate 2021-12-30 14:33:00 [facility] Heart Rate 2015-07-08 18:00:00 [facility] Respitory Rate 2015-07-08 18:00:00 [facility] Systolic (mm Hg) 2015-07-08 18:00:00 Isidro [facility] Diastolic (mm Hg) 2015-07-08 18:00:00 [facility] Temperature Oral 2015-07-08 18:00:00 97.5 F Isidro [facility] (F) Respitory Rate 2015-07-08 15:04:00 [facility] Respitory Rate 2015-07-08 14:00:00 [facility] Systolic (mm Hg) 2015-07-08 14:00:00 [facility]ro [facility] Diastolic (mm Hg) 2015-07-08 14:00:00 [facility] Heart Rate 2015-07-08 14:00:00 [facility] Temperature Oral 2015-07-08 14:00:00 97.9 F Isidro [facility] (F) Heart Rate 2015-07-08 11:14:00 [facility] Temperature Oral 2015-07-08 11:14:00 97.9 F Isidro [facility] (F) Systolic (mm Hg) 2015-07-08 11:14:00 [facility]ro [facility] Diastolic (mm Hg) 2015-07-08 11:14:00 [facility] BMI Calculated 2015-07-08 00:40:00 [facility] Weight 2015-07-08 00:40:00 [facility] Height 2015-07-08 00:40:00 182.88 cm [facility] BMI Calculated 2015-07-07 13:52:00 [facility] Weight 2015-07-07 13:52:00 [facility] Height 2015-07-07 13:52:00 165.1 cm [facility] Systolic (mm Hg) 2014-12-08 21:13:00 [facility]ro [facility] Diastolic (mm Hg) 2014-12-08 21:13:00 [facility] Respitory Rate 2014-12-08 21:13:00 [facility] Heart Rate 2014-12-08 21:13:00 [facility] Temperature Oral 2014-12-08 21:13:00 98.7 F Isidro [facility] (F) Heart Rate 2014-12-08 17:13:00 [facility] Temperature Oral 2014-12-08 17:13:00 98.5 F Is[facility]ro [facility] (F) Respitory Rate 2014-12-08 17:13:00 [facility] Systolic (mm Hg) 2014-12-08 17:13:00 Is[facility]ro [facility] Diastolic (mm Hg) 2014-12-08 17:13:00 [facility] Heart Rate 2014-12-08 13:00:00 [facility] Temperature Oral 2014-12-08 13:00:00 97.9 F Isidro [facility] (F) Respitory Rate 2014-12-08 13:00:00 [facility] Systolic (mm Hg) 2014-12-08 13:00:00 Is[facility]ro [facility] Diastolic (mm Hg) 2014-12-08 13:00:00 [facility] Respitory Rate 2014-12-06 14:43:00 [facility] Systolic (mm Hg) 2014-12-06 14:43:00 Isidro [facility] Diastolic (mm Hg) 2014-12-06 14:43:00 [facility] Heart Rate 2014-12-06 14:43:00 [facility] Height 2014-12-05 19:54:00 182.88 cm [facility] BMI Calculated 2014-12-05 19:54:00 [facility] Weight 2014-12-05 19:54:00 [facility] Respitory Rate 2014-12-05 17:50:00 [facility] Systolic (mm Hg) 2014-12-05 17:50:00 [facility]ro [facility] Diastolic (mm Hg) 2014-12-05 17:50:00 [facility] Weight 2014-12-04 15:48:00 [facility] BMI Calculated 2014-12-04 15:48:00 [facility] Height 2014-12-04 15:48:00 182.88 cm [facility] Respitory Rate 2014-11-05 20:30:00 [facility] Heart Rate 2014-11-05 20:30:00 [facility] Systolic (mm Hg) 2014-11-05 20:30:00 Is[facility]ro [facility] Diastolic (mm Hg) 2014-11-05 20:30:00 [facility] Systolic (mm Hg) 2014-11-05 20:15:00 [facility]ro [facility] Diastolic (mm Hg) 2014-11-05 20:15:00 [facility] Respitory Rate 2014-11-05 20:15:00 [facility] Respitory Rate 2014-11-05 20:00:00 [facility] Systolic (mm Hg) 2014-11-05 20:00:00 Is[facility]ro [facility] Diastolic (mm Hg) 2014-11-05 20:00:00 [facility] Heart Rate 2014-11-05 14:51:00 [facility] Temperature Oral 2014-11-05 14:51:00 97.9 F Is[facility]ro [facility] (F) Systolic (mm Hg) 2014-10-31 21:00:00 [facility]ro [facility] Diastolic (mm Hg) 2014-10-31 21:00:00 [facility] Respitory Rate 2014-10-31 21:00:00 [facility] Heart Rate 2014-10-31 21:00:00 [facility] Temperature Oral 2014-10-31 21:00:00 98.1 F Isidro [facility] (F) Height 2014-10-31 20:53:00 182.88 cm [facility] BMI Calculated 2014-10-31 20:53:00 [facility] Weight 2014-10-31 20:53:00 [facility] Respitory Rate 2014-10-31 17:00:00 [facility] Systolic (mm Hg) 2014-10-31 17:00:00 Isidro [facility] Diastolic (mm Hg) 2014-10-31 17:00:00 [facility] Heart Rate 2014-10-31 17:00:00 [facility] Temperature Oral 2014-10-31 17:00:00 97.9 F Is[facility]ro [facility] (F) Temperature Oral 2014-10-31 12:00:00 98.3 F Is[facility]ro [facility] (F) Heart Rate 2014-10-31 12:00:00 [facility] Systolic (mm Hg) 2014-10-31 12:00:00 [facility]ro [facility] Diastolic (mm Hg) 2014-10-31 12:00:00 [facility] Respitory Rate 2014-10-31 12:00:00 [facility] Weight 2014-10-24 05:44:00 [facility] BMI Calculated 2014-10-24 05:44:00 [facility] Height 2014-10-24 05:44:00 187.96 cm [facility] Systolic (mm Hg) 2014-09-11 18:00:00 Is[facility]ro [facility] Respitory Rate 2014-09-11 18:00:00 [facility] Heart Rate 2014-09-11 18:00:00 [facility] Temperature Oral 2014-09-11 18:00:00 98.3 F Isidro [facility] (F) Diastolic (mm Hg) 2014-09-11 18:00:00 [facility] Diastolic (mm Hg) 2014-09-11 13:00:00 [facility] Heart Rate 2014-09-11 13:00:00 [facility] Temperature Oral 2014-09-11 13:00:00 98.6 F Isidro [facility] (F) Systolic (mm Hg) 2014-09-11 13:00:00 [facility]ro [facility] Respitory Rate 2014-09-11 13:00:00 [facility] Systolic (mm Hg) 2014-09-11 11:50:00 Isidro [facility] Diastolic (mm Hg) 2014-09-11 11:50:00 [facility] Respitory Rate 2014-09-11 11:50:00 [facility] Temperature Oral 2014-09-11 11:50:00 98.2 F Isidro [facility] (F) Heart Rate 2014-09-11 11:50:00 [facility] Systolic (mm Hg) 2014-09-10 01:45:00 [facility]ro [facility] Diastolic (mm Hg) 2014-09-10 01:45:00 [facility] Respitory Rate 2014-09-10 01:45:00 [facility] Systolic (mm Hg) 2014-09-10 01:37:00 [facility]ro [facility] Respitory Rate 2014-09-10 01:37:00 [facility] Diastolic (mm Hg) 2014-09-10 01:37:00 [facility] Height 2014-09-09 02:53:00 182.88 cm [facility] BMI Calculated 2014-09-09 02:53:00 [facility] Weight 2014-09-09 02:53:00 [facility] Heart Rate 2014-09-09 01:28:00 [facility] Temperature Oral 2014-09-09 01:28:00 98.4 F Isidro [facility] (F) Respitory Rate 2014-09-09 01:28:00 [facility] BMI Calculated 2014-09-09 01:28:00 [facility] Height 2014-09-09 01:28:00 182.88 cm [facility] Weight 2014-09-09 01:28:00 [facility] Systolic (mm Hg) 2014-09-09 01:28:00 [facility]ro [facility] Diastolic (mm Hg) 2014-09-09 01:28:00 [facility] Diastolic (mm Hg) 2014-09-03 16:30:00 [facility] Systolic (mm Hg) 2014-09-03 16:30:00 [facility]ro [facility] Respitory Rate 2014-09-03 16:30:00 [facility] Heart Rate 2014-09-03 16:30:00 [facility] Systolic (mm Hg) 2014-09-03 15:30:00 [facility]ro [facility] Respitory Rate 2014-09-03 15:30:00 [facility] Heart Rate 2014-09-03 15:30:00 [facility] Diastolic (mm Hg) 2014-09-03 15:30:00 [facility] Diastolic (mm Hg) 2014-09-03 15:00:00 [facility] Systolic (mm Hg) 2014-09-03 15:00:00 [facility]ro [facility] Respitory Rate 2014-09-03 15:00:00 [facility] Temperature Oral 2014-09-03 12:15:00 97.5 F Is[facility]ro [facility] (F) Heart Rate 2014-09-03 12:15:00 [facility] BMI Calculated 2014-09-02 17:33:00 [facility] Weight 2014-09-02 17:33:00 [facility] Height 2014-09-02 17:33:00 182.88 cm [facility] Respitory Rate 2012-12-21 14:28:00 [facility] Systolic (mm Hg) 2012-12-21 13:13:00 [facility]ro [facility] Heart Rate 2012-12-21 13:13:00 [facility] Respitory Rate 2012-12-21 13:13:00 [facility] Diastolic (mm Hg) 2012-12-21 13:13:00 [facility] Temperature Oral 2012-12-21 13:13:00 98.0 F Isidro [facility] (F) Respitory Rate 2012-12-21 09:32:00 [facility] Heart Rate 2012-12-21 09:32:00 [facility] Diastolic (mm Hg) 2012-12-21 09:32:00 [facility] Systolic (mm Hg) 2012-12-21 09:32:00 [facility] Temperature Oral 2012-12-21 09:32:00 98.7 F [facility]ro [facility] (F) Systolic (mm Hg) 2012-12-21 09:31:00 [facility]ro [facility] Diastolic (mm Hg) 2012-12-21 09:31:00 [facility] Heart Rate 2012-12-21 09:31:00 [facility] Temperature Oral 2012-12-21 09:31:00 98.2 F Isidro Jane (F) Weight 2012-12-14 22:13:00 [facility] Height 2012-12-14 22:13:00 182.88 cm Juan Jose Jane Weight 2012-12-14 22:00:00 [facility] Height 2012-12-14 22:00:00 182.88 cm [facility] Procedures Procedure Date / Time Performing Clinician Source Performed POCT-GLUCOSE METER 2022-12-08 [facility]08 [facility] AUTO 2022-12-08 05:29:00 [facility] DIFFERENTIAL [facility] BASIC METABOLIC PANEL 2022-12-08 05:29:00 [facility] MAGNESIUM 2022-12-08 05:29:00 [facility] 2022-12-08 05:29:00 [facility] W/PLT COUNT & AUTO 2022-12-08 05:29:00 [facility] POCT-GLUCOSE METER 2022-12-08 01:05:00 [facility] POCT-GLUCOSE METER 2022-12-07 18:44:00 [facility] 2022-12-07 13:39[facility] 2022-12-07 05:53:00 Dilcia Olivas [facility] CBC W/PLT COUNT & AUTO 2022-12-07 04:12:00 [facility] BASIC METABOLIC PANEL 2022-12-07 04:12:00 [place], [facility] MAGNESIUM 2022-12-07 04:12:00 [facility] 2022-12-07 04:12:00 Schaefer, [facility] CBC W/PLT COUNT & AUTO 2022-12-07 04:12:00 Peña [facility] POCT-GLUCOSE METER 2022-12-07 01:20:00 Brendon [facility] POCT-GLUCOSE METER 2022-12-06 15:40:00 Olivas [facility] POCT-GLUCOSE METER 2022-12-06 11:43:00 Olivas [facility] POCT-GLUCOSE METER 2022-12-06 06:15:00 [facility] CBC W/PLT COUNT & AUTO 2022-12-06 03:30:00 [facility] BASIC METABOLIC PANEL 2022-12-06 03:30:00 Schaefer [facility] MAGNESIUM 2022-12-06 03:30:00 [facility] 2022-12-06 03:30:00 [facility] CBC W/PLT COUNT & AUTO 2022-12-06 03:30:00 Peña [facility] POCT-GLUCOSE METER 2022-12-06 00:05:00 [facility] POCT-GLUCOSE METER 2022-12-05 15:32:00 Brendon [facility] POCT-GLUCOSE METER 2022-12-05 11:33:00 Olivas [facility] POCT-GLUCOSE METER 2022-12-05 06:48[facility] AUTO 2022-12-05 05:17:00 [facility] BASIC METABOLIC PANEL 2022-12-05 05:17:00 Schaefer, [facility] MAGNESIUM 2022-12-05 05:17:00 Schaefer, [facility] PHOSPHORUS 2022-12-05 05:17:00 Schaefer [facility] VANCOMYCIN LEVEL, TROUGH 2022-12-05 05:17:00 ElyssasilviaDeborah regan [facility] CBC W/PLT COUNT & AUTO 2022-12-05 05:17:00 Leobardo Pompa[facility] DIFFERENTIAL [facility] (MANUAL DIFFERENTIAL) 2022-12-05 05:17:[address] [facility] POCT-GLUCOSE METER 2022-12-04 23:41:00 Brendon [facility] POCT-GLUCOSE METER 2022-12-04 18:06:00 [facility] POCT-GLUCOSE METER 2022-12-04 13:00:00 [facility] POCT-GLUCOSE METER 2022-12-04 06:28:00 [facility] CBC W/PLT COUNT & AUTO 2022-12-04 05:04:00 Blelo [facility] BASIC METABOLIC PANEL 2022-12-04 05:04:00 Schaefer [facility] MAGNESIUM 2022-12-04 05:04:00 Olive [facility] PHOSPHORUS 2022-12-04 05:04:00 Schaefer [facility] CBC W/PLT COUNT & AUTO 2022-12-04 05:04:00 Bello Pompa [facility] DIFFERENTIAL [facility] POCT-GLUCOSE METER 2022-12-04 00:03:00 Brendon [facility] POCT-GLUCOSE METER 2022-12-03 18:23:00 [facility] POCT-GLUCOSE METER 2022-12-03 11:34:00 Brendon [facility] POCT-GLUCOSE METER 2022-12-03 05:51:00 [facility] CBC W/PLT COUNT & AUTO 2022-12-03 03:43:00 PompaLeobardoBello [facility] DIFFERENTIAL [facility] BASIC METABOLIC PANEL 2022-12-03 03:43:00 Schaefer, [facility] MAGNESIUM 2022-12-03 03:43:00 Olive [facility] PHOSPHORUS 2022-12-03 03:43:00 Schaefer [facility] VANCOMYCIN LEVEL, TROUGH 2022-12-03 03:43:00 Lottie Lima [facility] CBC W/PLT COUNT & AUTO 2022-12-03 03:43:00 [facility] DIFFERENTIAL [facility] (MANUAL DIFFERENTIAL) 2022-12-03 03:43:00 [facility] POCT-GLUCOSE METER 2022-12-02 23:13:00 [facility] PO[facility]SE [facility]ER 2022-12-02 20:25:00 [facility] POCT-GLUCOSE METER 2022-12-02 18:40:00 Brendon [facility] [place] MODIFIED BARIUM 2022-12-02 14:30[facility] 2022-12-02 11:54:00 Brendon [facility] POCT-GLUCOSE METER 2022-12-02 08:42:00 [facility]-GLUCOSE METER 2022-12-02 06:34:00 Luis Angel Lafleurhu Donovan [facility] BLOOD CULTURE 2022-12-02 04:06:00 Olive [facility] CBC W/PLT COUNT & AUTO 2022-12-02 04:04:00 Peña [facility] DIFFERENTIAL [facility] BLOOD GAS, VENOUS 2022-12-02 04:04:00 [facility] BASIC METABOLIC PANEL 2022-12-02 04:04:00 Olive [facility] MAGNESIUM 2022-12-02 04:04:00 Olive [facility] PHOSPHORUS 2022-12-02 04:04:00 Olive [facility] CBC W/PLT COUNT & AUTO 2022-12-02 04:04:00 Peña [facility] DIFFERENTIAL [facility] (MANUAL DIFFERENTIAL) 2022-12-02 04:04:00 [facility] POCT-GLUCOSE METER 2022-12-01 23:51:00 Lafleur [facility] POCT-GLUCOSE METER 2022-12-01 20:50:00 Lafleur [facility] POCT-GLUCOSE METER 2022-12-01 19:34:00 Lafleur [facility] POCT-GLUCOSE METER 2022-12-01 17:32:00 Lafleur, [facility] XR CHEST 1 VIEW PORTABLE 2022-12-01 11:20:00 Schaefer [facility] POCT-GLUCOSE METER 2022-12-01 11:06:00 Lafleur [facility] BASIC METABOLIC PANEL 2022-12-01 07:41:00 [facility] LACTIC ACID, VENOUS 2022-12-01 07:41:00 Frantz yordy [facility] POCT-GLUCOSE METER 2022-12-01 05:49:00 Lafleur, [facility] HEMOGLOBIN A1C 2022-12-01 03:34:00 Pilar [facility] VANCOMYCIN LEVEL, TROUGH 2022-12-01 03:34:00 Lottie Lima [facility] BASIC METABOLIC PANEL 2022-12-01 03:34:00 [facility] CBC W/PLT COUNT & AUTO 2022-12-01 03:34:00 [facility] DIFFERENTIAL [facility] BLOOD GAS, VENOUS 2022-12-01 03:34:00 [facility] PHOSPHORUS 2022-12-01 03:34:00 Pilar [facility] MAGNESIUM 2022-12-01 03:34:00 Carlosrisophy yordy [facility] LACTIC ACID, VENOUS 2022-12-01 03:34:00 Carlosrisophy yordy [facility] CBC W/PLT COUNT & AUTO 2022-12-01 03:34:00 [place] [facility] (MANUAL DIFFERENTIAL) 2022-12-01 03:34:00 [facility] POCT-GLUCOSE METER 2022-12-01 02:05:00 Lafleur, [facility] POCT-GLUCOSE METER 2022-12-01 00:33:00 Lafleur, [facility] BASIC METABOLIC PANEL 2022-11-30 23:40:00 Frantz [facility] MAGNESIUM 2022-11-30 23:40:00 [facility]US 2022-11-30 23:40:00 [facility] POCT-GLUCOSE METER 2022-11-30 22:59:00 Lafleur, [facility] BASIC METABOLIC PANEL 2022-11-30 19:43:00 [facility] BLOOD GAS, VENOUS 2022-11-30 19:43:00 [facility] LACTIC ACID, VENOUS 2022-11-30 19:43:00 [facility] POCT-GLUCOSE METER 2022-11-30 18:04:00 Lafleur, [facility] POCT-GLUCOSE METER 2022-11-30 17:01:00 Lafleur, [facility] POCT-GLUCOSE METER 2022-11-30 11:27:00 Ciarra [facility] POCT-GLUCOSE METER 2022-11-30 10:29:00 Lafleur, [facility] SPUTUM CULTURE + GRAM 2022-11-30 09:02:00 Ba Mcwilliams [facility] 2022-11-30 08:47:00 [facility] LACTIC ACID, VENOUS 2022-11-30 08:47:00 [facility] TSH/FREE T4 IF INDICATED 2022-11-30 08:47:00 [facility] COMPREHENSIVE METABOLIC 2022-11-30 08:47:00 [facility] 2D ECHO W/ DOPPLER 2022-11-30 08:46:38 [facility] (CW/PW/COLOR) [facility] 2D ECHO W/ DOPPLER 2022-11-30 08:46:38 [facility] (CW/PW/COLOR) [facility] 2D ECHO W/ DOPPLER 2022-11-30 08:08:44 [facility] (CW/PW/COLOR) [facility] LACTIC ACID, VENOUS 2022-11-30 07:40:[address] [facility] ABORH, MANUAL 2022-11-30 07:40:00 Aracely Snow [facility] MRSA SCREEN 2022-11-30 06:28:00 [facility] XR ABDOMEN/KUB 1 VIEW 2022-11-30 06:03:00 Ba Mcwilliams [facility] PORTABLE [facility] URINALYSIS MICROSCOPIC 2022-11-30 05:41:00 Oj, Ba [facility] URINALYSIS WITH 2022-11-30 05:41:00 Ba Mcwilliams [facility] MICROSCOPIC IF INDICATED [facility] URINALYSIS MICROSCOPIC 2022-11-30 05:41:00 Oj [facility] URINE CULTURE 2022-11-30 05:41:00 Yassine Lafleur [facility] BLOOD GAS, ARTERIAL 2022-11-30 05:00:00 [facility] RSV ANTIGEN 2022-11-30 04:52:00 [facility] INFLUENZA A&B 2022-11-30 04:52:00 [facility] SARS-COV2/RT-PCR ([facility] & 2022-11-30 04:52:00 Ba Mcwilliams [facility] REF LABS) [facility] BLOOD CULTURE 2022-11-30 04:29:00 [facility]AD 2022-11-30 04:28:26 Oj [facility] ECG 12-LEAD 2022-11-30 04:28:26 Oj [facility] BLOOD CULTURE 2022-11-30 04:27:00 [facility] TYPE [facility]CREEN, 2022-11-30 04:19:00 [facility] XR CHEST 1 VIEW PORTABLE 2022-11-30 04:10:00 Ba Mcwilliams [facility] / BEDSIDE [facility] CBC W/PLT COUNT & AUTO 2022-11-30 04:10:00 [facility] COMPREHENSIVE METABOLIC 2022-11-30 04:10:00 Ba Mcwilliams I [facility] PANEL [facility] MAGNESIUM 2022-11-30 04:10:00 [facility] PHOSPHORUS 2022-11-30 04:10:00 [facility] CALCIUM, IONIZED 2022-11-30 04:10:00 Oj [facility] LACTIC ACID, VENOUS 2022-11-30 04:10:00 Oj [facility] PROCALCITONIN 2022-11-30 04:10:00 [facility] B-TYPE NATRIURETIC FACTOR 2022-11-30 04:10:00 [facility] (BNP) [facility] CREATINE KINASE (CK) 2022-11-30 04:10:00 [facility] D-DIMER 2022-11-30 04:10:00 [facility] PT/APTT 2022-11-30 04:10:00 [facility] CBC W/PLT COUNT & AUTO 2022-11-30 04:10:00 [facility] DIFFERENTIAL [facility] (MANUAL DIFFERENTIAL) 2022-11-30 04:10:00 [facility] CORTISOL 2022-11-30 04:10:00 [facility] POCT-GLUCOSE METER 2022-11-30 04:06:00 Mateusz Lainez [facility] EKG-SCANNED 2022-11-30 00:00:00 Elliot Membreno [facility] POCT GLUCOSE (AUTOMATED) 2022-09-05 22:44:00 [facility]OMATED) 2022-09-05 17:37:00 [facility] PO[facility]SE (AUTOMATED) 2022-09-05 13:54:00 [facility]SE (AUTOMATED) 2022-09-05 10:40:00 [facility] PO[facility]UCOSE (AUTOMATED) 2022-09-05 06:48:00 [facility] PO[facility]UCOSE (AUTOMATED) 2022-09-05 02:16:00 [facility] PO[facility]UCOSE (AUTOMATED) 2022-09-04 22:34:00 [facility]UCOSE (AUTOMATED) 2022-09-04 18:15:00 Oneida Stout[facility] POCT GLUCOSE (AUTOMATED) 2022-09-04 15:32:00 Oneida Stout versity [facility] POCT GLUCOSE (AUTOMATED) 2022-09-04 06:46:00 Oneida Stout versity [facility] POCT GLUCOSE (AUTOMATED) 2022-09-04 05:09:00 Oneida Stout versity [facility] POCT GLUCOSE (AUTOMATED) 2022-09-04 01:55:00 Oneida Stout versity [facility] POCT GLUCOSE (AUTOMATED) 2022-09-03 23:01:00 Oneida Stout versity [facility] POCT GLUCOSE (AUTOMATED) 2022-09-03 17:37:00 Oneida Stout versity [facility] POCT GLUCOSE (AUTOMATED) 2022-09-03 14:01:00 Oneida Stout versity of [facility] BASIC METABOLIC PANEL 2022-09-03 10:39:00 Keya Eason [facility] (NA, K, CL, CO2, GLUCOSE, Medica l Branch BUN, CREATININE, CA) CBC WITH DIFF 2022-09-03 10:39:00 Keya Eason [facility] POCT GLUCOSE (AUTOMATED) 2022-09-03 10:37:00 Oneida Stout versity [facility] POCT GLUCOSE (AUTOMATED) 2022-09-03 06:15:00 Oneida Stout versity [facility] POCT GLUCOSE (AUTOMATED) 2022-09-03 03:16:00 Oneida Stout versity [facility] POCT GLUCOSE (AUTOMATED) 2022-09-02 22:19:00 Oneida Stout versity [facility] POCT GLUCOSE (AUTOMATED) 2022-09-02 17:44:00 Oneida Stout versity [facility] POCT GLUCOSE (AUTOMATED) 2022-09-02 13:50:00 Oneida Stout versity [facility] POCT GLUCOSE (AUTOMATED) 2022-09-02 10:30:00 Oneida Stout versity [facility] POCT GLUCOSE (AUTOMATED) 2022-09-02 06:17:00 Oneida Stout versity [facility] POCT GLUCOSE (AUTOMATED) 2022-09-02 02:44:00 Oneida Stout versity [facility] POCT GLUCOSE (AUTOMATED) 2022-09-01 22:11:00 Oneida Stout Deloris versity of [facility] POCT GLUCOSE (AUTOMATED) 2022-09-01 17:33:00 Oneida Stout Uni versity of [facility] POCT GLUCOSE (AUTOMATED) 2022-09-01 14:08:00 Oneida Stout Deloris versity [facility] POCT GLUCOSE (AUTOMATED) 2022-09-01 11:14:00 Oneida Stout Deloris versity [facility] POCT GLUCOSE (AUTOMATED) 2022-09-01 06:12:00 Oneida Stout Deloris versity [facility] POCT GLUCOSE (AUTOMATED) 2022-09-01 02:29:00 Oneida Stout Deloris versity [facility] POCT GLUCOSE (AUTOMATED) 2022-08-31 22:05:00 Oneida Stout Deloris [facility] POCT GLUCOSE (AUTOMATED) 2022-08-31 17:11:00 Oneida Stout Deloris versity [facility] POCT GLUCOSE (AUTOMATED) 2022-08-31 13:26:00 Oneida Stout versity [facility] POCT GLUCOSE (AUTOMATED) 2022-08-31 10:19:00 Oneida Stout Deloris versity [facility] POCT GLUCOSE (AUTOMATED) 2022-08-31 06:55:00 Oneida Stout Deloris [facility] POCT GLUCOSE (AUTOMATED) 2022-08-31 03:43:00 Oneida Stout Deloris vers[facility] POCT GLUCOSE (AUTOMATED) 2022-08-31 00:59:00 Oneida Stout versity [facility] POCT GLUCOSE (AUTOMATED) 2022-08-30 22:46:00 Oneida Stout Deloris vers[facility] POCT GLUCOSE (AUTOMATED) 2022-08-30 18:46:00 Oneida Stout Uni versity of [facility] POCT GLUCOSE (AUTOMATED) 2022-08-30 15:30:00 Oneida Stout versity [facility] BASIC METABOLIC PANEL 2022-08-30 11:27:00 Gera Winters [facility] (NA, K, CL, CO2, GLUCOSE, Medica l Branch BUN, CREATININE, CA) CBC WITH DIFF 2022-08-30 11:27:00 Gera Winters [facility] POCT GLUCOSE (AUTOMATED) 2022-08-30 10:52:00 Oneida Stout [facility] POCT GLUCOSE (AUTOMATED) 2022-08-30 06:06:00 Oneida Stout [facility] POCT GLUCOSE (AUTOMATED) 2022-08-30 03:53:00 Oneida Stout [facility] POCT GLUCOSE (AUTOMATED) 2022-08-30 01:35:00 Oneida Stout [facility] POCT GLUCOSE (AUTOMATED) 2022-08-29 21:04:00 Oneida Stout [facility] POCT GLUCOSE (AUTOMATED) 2022-08-29 16:10:00 Oneida Stout [facility] BASIC METABOLIC PANEL 2022-08-29 10:38:00 Gera Winters [facility] (NA, K, CL, CO2, GLUCOSE, Medica l Branch BUN, CREATININE, CA) CBC WITH DIFF 2022-08-29 10:38:00 Gera Winters [facility] POCT GLUCOSE (AUTOMATED) 2022-08-29 10:17:00 Oneida Stout [facility] POCT GLUCOSE (AUTOMATED) 2022-08-29 05:42:00 Oneida Stout [facility] POCT GLUCOSE (AUTOMATED) 2022-08-29 02:01:00 Oneida Stout [facility] POCT GLUCOSE (AUTOMATED) 2022-08-28 22:52:00 Oneida Stout [facility] POCT GLUCOSE (AUTOMATED) 2022-08-28 17:36:00 Oneida Stout [facility] POCT GLUCOSE (AUTOMATED) 2022-08-28 14:05:00 Oneida Stout [facility] POCT GLUCOSE (AUTOMATED) 2022-08-28 09:54:00 [facility] POCT GLUCOSE (AUTOMATED) 2022-08-28 06:10:00 [facility]ida Stout [facility] POCT GLUCOSE (AUTOMATED) 2022-08-28 03:57:00 [facility] (AUTOMATED) 2022-08-28 02:40:00 Oneida Stout [facility] POCT GLUCOSE (AUTOMATED) 2022-08-27 22:59:00 Oneida Stout [facility] POCT GLUCOSE (AUTOMATED) 2022-08-27 22:30:00 Oneida Stout [facility] POCT GLUCOSE (AUTOMATED) 2022-08-27 22:29:00 Oneida Stout [facility] POCT GLUCOSE (AUTOMATED) 2022-08-27 18:04:00 Oneida Stout [facility] POCT GLUCOSE (AUTOMATED) 2022-08-27 14:18:00 Oneida Stout [facility] POCT GLUCOSE (AUTOMATED) 2022-08-27 12:09:00 Oneida Stout [facility] BASIC METABOLIC PANEL 2022-08-27 10:43:00 Gera Winters [facility] (NA, K, CL, CO2, GLUCOSE, Medica l Branch BUN, CREATININE, CA) CBC WITH DIFF 2022-08-27 10:43:00 Gera Winters [facility] POCT GLUCOSE (AUTOMATED) 2022-08-27 10:14:00 Oneida Stout [facility] POCT GLUCOSE (AUTOMATED) 2022-08-27 06:50:00 Oneida Stout [facility] POCT GLUCOSE (AUTOMATED) 2022-08-27 04:05:00 Oneida Stout [facility] POCT GLUCOSE (AUTOMATED) 2022-08-26 22:44:00 Oneida Stout [facility] POCT GLUCOSE (AUTOMATED) 2022-08-26 18:03:00 Oneida Stout [facility] POCT GLUCOSE (AUTOMATED) 2022-08-26 15:13:00 Oneida Stout [facility] POCT GLUCOSE (AUTOMATED) 2022-08-26 14:11:00 [facility] Stout [facility] POCT GLUCOSE (AUTOMATED) 2022-08-26 10:19:00 Oneida Stout [facility] POCT GLUCOSE (AUTOMATED) 2022-08-26 06:07:00 Oneida Stout [facility] POCT GLUCOSE (AUTOMATED) 2022-08-26 03:22:00 Oneida Stout Deloris [facility] POCT GLUCOSE (AUTOMATED) 2022-08-25 23:55:00 Oneida Stout Deloris [facility] POCT GLUCOSE (AUTOMATED) 2022-08-25 20:43:00 Oneida Stout [facility] PO[facility]SE (AUTOMATED) 2022-08-25 15:24:00 Oneida Stout [facility] BASIC METABOLIC PANEL 2022-08-25 10:37:00 [facility] (NA, K, CL, CO2, GLUCOSE, Medica l Branch BUN, CREATININE, CA) CBC WITH DIFF 2022-08-25 10:37:00 Gera Winters [facility] POCT GLUCOSE (AUTOMATED) 2022-08-25 10:17:00 Oneida Stout [facility] PO[facility] GLUCOSE (AUTOMATED) 2022-08-25 06:56:00 Oneida Stout [facility] POCT GLUCOSE (AUTOMATED) 2022-08-25 03:07:00 Oneida Stout [facility] POCT GLUCOSE (AUTOMATED) 2022-08-24 22:03:00 Oneida Stout [facility] POCT GLUCOSE (AUTOMATED) 2022-08-24 18:42:00 Oneida Stout Deloris [facility] POCT GLUCOSE (AUTOMATED) 2022-08-24 14:24:00 Oneida Stout [facility] PO[facility] GLUCOSE (AUTOMATED) 2022-08-24 10:59:00 Oneida Stout Del[facility]is [facility] BASIC METABOLIC PANEL 2022-08-24 10:54:00 Keya Eason [facility] (NA, K, CL, CO2, GLUCOSE, Medica l Branch BUN, CREATININE, CA) CBC WITH DIFF 2022-08-24 10:54:00 Keya Eason [facility] POCT GLUCOSE (AUTOMATED) 2022-08-24 05:34:00 Oneida Stout Uni [facility] POCT GLUCOSE (AUTOMATED) 2022-08-24 03:03:00 Oneida Stout [facility] POCT GLUCOSE (AUTOMATED) 2022-08-23 22:36:00 Oneida Stout [facility] POCT GLUCOSE (AUTOMATED) 2022-08-23 17:56:00 Oneida Stout [facility] POCT GLUCOSE (AUTOMATED) 2022-08-23 14:16:00 Oneida Stout [facility] BASIC METABOLIC PANEL 2022-08-23 10:47:00 [facility] (NA, K, CL, CO2, GLUCOSE, Medica l Branch BUN, CREATININE, CA) CBC WITH DIFF 2022-08-23 10:47:00 Keya Eason [facility] POCT GLUCOSE (AUTOMATED) 2022-08-23 10:45:00 Oneida Stout [facility] POCT GLUCOSE (AUTOMATED) 2022-08-23 05:38:00 Oneida Stout [facility] POCT GLUCOSE (AUTOMATED) 2022-08-23 03:06:00 Oneida Stout [facility] POCT GLUCOSE (AUTOMATED) 2022-08-22 23:45:00 Oneida Stout [facility] PREPARE PACKED RBC 2022-08-22 22:19:39 Keya Eason [facility] ABORH CONFIRMATION (LAB 2022-08-22 21:03:00 Oneida Stout [facility] ONLY) [facility] HB ABO GROUPING 2022-08-22 20:08:00 Keya Eason [facility] POCT GLUCOSE (AUTOMATED) 2022-08-22 17:49:00 Oneida Stout [facility] POCT GLUCOSE (AUTOMATED) 2022-08-22 13:56:00 Oneida Stout [facility] FERRITIN SERUM 2022-08-22 09:48:00 Keya Eason [facility] BASIC METABOLIC PANEL 2022-08-22 09:48:00 [facility] ([facility], K, CL, CO2, GLUCOSE, Medica l Branch BUN, CREATININE, CA) CBC WITH DIFF 2022-08-22 09:48:00 Keya Eason [facility] POCT GLUCOSE (AUTOMATED) 2022-08-22 09:20:00 Oneida Stout versity of [facility] POCT GLUCOSE (AUTOMATED) 2022-08-22 04:01:00 Oneida Stout versity of [facility] POCT GLUCOSE (AUTOMATED) 2022-08-21 23:00:00 Oneida Stout [facility] BASIC METABOLIC PANEL 2022-08-21 17:50:00 Tyrone [facility] (NA, K, CL, CO2, GLUCOSE, Yael J Medica l Branch BUN, CREATININE, CA) POCT GLUCOSE (AUTOMATED) 2022-08-21 17:48:00 Oneida Stout versity of [facility] POCT GLUCOSE (AUTOMATED) 2022-08-21 15:26:00 Oneida Stout versity of [facility] POCT GLUCOSE (AUTOMATED) 2022-08-21 13:40:00 Oneida Stout versity of [facility] POCT GLUCOSE (AUTOMATED) 2022-08-21 11:03:00 Oneida Stout Deloris versity of [facility] POCT GLUCOSE (AUTOMATED) 2022-08-21 06:37:00 Oneida Stout [facility] POCT GLUCOSE (AUTOMATED) 2022-08-21 03:43:00 Oneida Stout versity of [facility] POCT GLUCOSE (AUTOMATED) 2022-08-21 02:10:00 Oneida Stout [facility] POCT GLUCOSE (AUTOMATED) 2022-08-21 00:15:00 Oneida Stout versity of [facility] POCT GLUCOSE (AUTOMATED) 2022-08-20 19:14:00 Oneida Stout [facility] BASIC METABOLIC PANEL 2022-08-20 16:34:00 Emely [facility] (NA, K, CL, CO2, GLUCOSE, Medica l Branch BUN, CREATININE, CA) CBC WITH DIFF 2022-08-20 16:34:00 Emely [facility] POCT GLUCOSE (AUTOMATED) 2022-08-20 15:43:00 Oneida Stout versity of [facility] POCT GLUCOSE (AUTOMATED) 2022-08-20 11:35:00 Oneida Stout [facility] POCT GLUCOSE (AUTOMATED) 2022-08-20 08:17:00 Oneida Stout [facility] POCT GLUCOSE (AUTOMATED) 2022-08-20 02:31:00 Oneida Stout [facility] POCT GLUCOSE (AUTOMATED) 2022-08-19 22:14:00 Oneida Stout [facility] URINALYSIS 2022-08-19 19:12:00 Oneida Stout o f [facility] URINE CULTURE 2022-08-19 19:12:00 [facility] PO[facility] GLUCOSE (AUTOMATED) 2022-08-19 17:14:00 Oneida Stout [facility] POCT GLUCOSE (AUTOMATED) 2022-08-19 13:22:00 Oneida Stout [facility] POCT GLUCOSE (AUTOMATED) 2022-08-19 10:15:00 Oneida Stout [facility] BASIC METABOLIC PANEL 2022-08-19 09:55:00 Keya Eason [facility] (NA, K, CL, CO2, GLUCOSE, Medica l Branch BUN, CREATININE, CA) CBC WITH DIFF 2022-08-19 09:55:00 Keya Eason [facility] POCT GLUCOSE (AUTOMATED) 2022-08-19 06:13:00 Oneida Stout [facility] POCT GLUCOSE (AUTOMATED) 2022-08-19 02:18:00 Oneida Stout [facility] POCT GLUCOSE (AUTOMATED) 2022-08-18 22:17:00 Oneida Stout [facility] LACTIC ACID WHOLE BLOOD 2022-08-18 21:47:00 Keya Eason [facility] POCT GLUCOSE (AUTOMATED) 2022-08-18 17:34:00 Oneida Stout [facility] POCT GLUCOSE (AUTOMATED) 2022-08-18 14:18:00 Oneida Stout [facility] BASIC METABOLIC PANEL 2022-08-18 10:37:00 Keya Eason [facility] (NA, K, CL, CO2, GLUCOSE, Medica l Branch BUN, CREATININE, CA) CBC WITH DIFF 2022-08-18 10:37:00 Keya Eason [facility] POCT GLUCOSE (AUTOMATED) 2022-08-18 10:19:00 Oneida Stout versity [facility] POCT GLUCOSE (AUTOMATED) 2022-08-18 06:05:00 Oneida Stout versity [facility] POCT GLUCOSE (AUTOMATED) 2022-08-18 01:48:00 [facility] BASIC METABOLIC PANEL 2022-08-18 00:19:00 Oneida Stout [facility] (NA, K, CL, CO2, GLUCOSE, Medica l Branch BUN, CREATININE, CA) POCT GLUCOSE (AUTOMATED) 2022-08-18 00:02:00 [facility] POCT GLUCOSE (AUTOMATED) 2022-08-17 20:38:00 One[facility] St[facility] POCT GLUCOSE (AUTOMATED) 2022-08-17 17:11:00 Oneida Stout versity [facility] POCT GLUCOSE (AUTOMATED) 2022-08-17 16:46:00 Oneida Stout versity [facility] POCT GLUCOSE (AUTOMATED) 2022-08-17 13:52:00 Oneida Stout [facility] POCT GLUCOSE (AUTOMATED) 2022-08-17 11:47:00 Oneida Stout [facility] MAGNESIUM 2022-08-17 10:43:00 Rocco [facility] BASIC METABOLIC PANEL 2022-08-17 10:43:00 Jin Valiente [facility] (NA, K, CL, CO2, GLUCOSE, Medica l Branch BUN, CREATININE, CA) CBC WITH DIFF 2022-08-17 10:43:00 [facility] POCT GLUCOSE (AUTOMATED) 2022-08-17 10:13:00 Oneida Stout [facility] POCT GLUCOSE (AUTOMATED) 2022-08-17 06:47:00 Oneida Stout versity [facility] POCT GLUCOSE (AUTOMATED) 2022-08-17 03:39:00 Oneida Stout versity [facility] POCT GLUCOSE (AUTOMATED) 2022-08-16 22:01:00 Jin Valiente [facility] PHOSPHORUS 2022-08-16 14:11:00 Jin Valiente [place] [facility] COMP. METABOLIC PANEL 2022-08-16 14:11:00 Renetta Desai [facility] ([id number]) [facility] LIPID PANEL ([id number])(TOTAL 2022-08-16 14:11:00 Keya Eason [facility] CHOLESTEROL, [facility] TRIGLYCERIDES, HDL) IRON PANEL 2022-08-16 14:11:00 Keya Eason [facility] CBC WITH DIFF 2022-08-16 14:11:00 Renetta Desai [facility] GLYCOSYLATED HEMOGLOBIN 2022-08-16 14:11:00 Keya Eason [facility] (A1C) [facility] URINE CULTURE 2022-08-16 14:11:00 Renetta Desai [facility] BLOOD CULTURE SCREEN 2022-08-16 14:09:00 Renetta Desai [facility] URINALYSIS 2022-08-16 14:09:00 Renetta Desai [facility] POCT GLUCOSE (AUTOMATED) 2022-08-16 13:46:00 Renetta Desai [facility] CONSENT/REFUSAL FOR 2022-08-16 13:43:53 Doctor Unassigned, No [facility] EMERGENCY DEPARTMENT 2022-08-16 06:01:00 Doctor Unassigned, No [facility] DOCUM[facility] Name [facility] HOSPITAL ADMISSION MISC - 2022-08-16 06:01:00 Doctor Unassigned, No [facility] MEDICARE PATIENTS RIGHTS [facility] IMPORTANT MESSAGE URINALYSIS 2022-08-06 16:00:00 Cirilo Martines [facility] COMP. METABOLIC PANEL 2022-08-06 15:25:00 Cirilo Martines [facility] ([id number]) [facility] CBC WITH DIFF 2022-08-06 15:25:00 Cirilo Martines [facility] INSURANCE CORRESPONDENCE 2022-07-21 06:01:00 Doctor Unassigned, No [facility] XR CHEST 1 VW 2022-07-20 20:41:12 [facility] LACTIC ACID WHOLE BLOOD 2022-07-20 20:16:00 [facility] TROPONIN I 2022-07-20 20:07:00 Singer [facility] COMP. METABOLIC PANEL 2022-07-20 20:07:00 Singer Devika [facility] ([id number]) [facility] CBC WITH DIFF 2022-07-20 20:07:00 Singer [facility] URINALYSIS 2022-07-20 20:07:00 [facility] RAPID INFLUENZA A/B 2022-07-20 20:07:00 Singer Devika [facility] COVID-19 (ID NOW RAPID 2022-07-20 20:07:00 Singer [facility] URINALYSIS 2022-07-16 14:11:00 Renetta Desai [facility] COMP. METABOLIC PANEL 2022-07-16 14:09:00 Renetta Desai [facility] ([id number]) [facility] CBC WITH DIFF 2022-07-16 14:09:00 Renetta Desai [facility] POCT GLUCOSE (AUTOMATED) 2022-07-09 00:24:00 [facility] PO[facility] (AUTOMATED) 2022-07-08 22:18:00 Cirilo Martines [facility] iversity [facility] POCT GLUCOSE (AUTOMATED) 2022-07-08 19:32:00 [facility]SUPPLY JUSTIFICATION 2022-06-27 06:01:00 Doctor Unassigned, Madelaine [facility] POCT GLUCOSE (AUTOMATED) 2022-04-27 18:51:00 [facility]ad [facility] POCT GLUCOSE (AUTOMATED) 2022-04-27 16:53:00 [facility]ad [facility] POCT GLUCOSE (AUTOMATED) 2022-04-27 16:53:00 Rashad Burnett [facility] URINALYSIS 2022-04-27 16:47:00 Rudy Moseley [facility] POCT GLUCOSE (AUTOMATED) 2022-04-27 13:17:00 Rashad Burnett Uni [facility] POCT GLUCOSE (AUTOMATED) 2022-04-27 13:17:00 Rashad Burnett [facility] POCT GLUCOSE (AUTOMATED) 2022-04-27 08:54:00 OvRashad chi Uni [facility] POCT GLUCOSE (AUTOMATED) 2022-04-27 08:54:00 Rashad Burnett Uni versity [facility] BASIC METABOLIC PANEL 2022-04-27 08:36:00 Keya Eason [facility] [place] (NA, K, CL, CO2, GLUCOSE, Medica l Branch BUN, CREATININE, CA) CBC WITH DIFF 2022-04-27 08:36:00 Keya Eason [facility] BASIC METABOLIC PANEL 2022-04-27 08:36:00 Keya Eason [facility] [place] (NA, K, CL, CO2, GLUCOSE, Medica l Branch BUN, CREATININE, CA) CBC WITH DIFF 2022-04-27 08:36:00 Keya Eason [facility] POCT GLUCOSE (AUTOMATED) 2022-04-27 04:26:00 Rashad Burnett [facility] POCT GLUCOSE (AUTOMATED) 2022-04-27 04:26:00 Rashad Burnett [facility] POCT GLUCOSE (AUTOMATED) 2022-04-27 01:15:00 Rashad Burnett [facility] POCT GLUCOSE (AUTOMATED) 2022-04-27 01:15:00 Rashad Burnett [facility] POCT GLUCOSE (AUTOMATED) 2022-04-26 21:51:00 Rashad Burnett [facility] POCT GLUCOSE (AUTOMATED) 2022-04-26 21:51:00 Rashad Burnett Uni vers[facility] XR CHEST 1 VW 2022-04-26 20:37:27 Rudy Moseley [facility] XR CHEST 1 VW 2022-04-26 20:37:27 Rudy Moseley [facility] POCT GLUCOSE (AUTOMATED) 2022-04-26 16:30:00 Rashad Burnett Uni vers[facility] POCT GLUCOSE (AUTOMATED) 2022-04-26 16:30:00 Rashad Burnett Uni [facility] CENTRAL VENOUS CATHETER 2022-04-26 13:03:00 Sheyla Lin Uni [facility] CENTRAL VENOUS CATHETER 2022-04-26 13:03:00 Sheyla Lin Uni [facility] POCT GLUCOSE (AUTOMATED) 2022-04-26 12:38:00 Rashad Burnett Uni versity [facility] POCT GLUCOSE (AUTOMATED) 2022-04-26 12:38:00 [facility]) 2022-04-26 09:08:00 Rashad Burnett [facility] POCT GLUCOSE (AUTOMATED) 2022-04-26 09:08:00 Rashad Burnett Uni versity [facility] BASIC METABOLIC PANEL 2022-04-26 09:07:00 Keya Eason [facility] [place] (NA, K, CL, CO2, GLUCOSE, Medica l Branch BUN, CREATININE, CA) CBC WITH DIFF 2022-04-26 09:07:00 Keya Eason [facility] BASIC METABOLIC PANEL 2022-04-26 09:07:00 Keya Eason [facility] [place] (NA, K, CL, CO2, GLUCOSE, Medica l Branch BUN, CREATININE, CA) CBC WITH DIFF 2022-04-26 09:07:00 Keya Eason [facility] POCT GLUCOSE (AUTOMATED) 2022-04-26 04:37:00 Rashad Burnett Uni vers[facility] POCT GLUCOSE (AUTOMATED) 2022-04-26 04:37:00 Rashad Burnett Uni vers[facility] POCT GLUCOSE (AUTOMATED) 2022-04-26 02:06:00 Rashad Burnett Uni [facility] POCT GLUCOSE (AUTOMATED) 2022-04-26 02:06:00 Ovarti Rashad Uni [facility] POCT GLUCOSE (AUTOMATED) 2022-04-25 20:40:00 Ovarti Rashad [facility] POCT GLUCOSE (AUTOMATED) 2022-04-25 20:40:00 Oville Rashad Uni [facility] POCT GLUCOSE (AUTOMATED) 2022-04-25 16:30:00 Oville Rashad Uni [facility] POCT GLUCOSE (AUTOMATED) 2022-04-25 16:30:00 Ovarti Rashad [facility] POCT GLUCOSE (AUTOMATED) 2022-04-25 11:27:00 Lex Rashad Uni [facility] POCT GLUCOSE (AUTOMATED) 2022-04-25 11:27:00 Rashad Burnett Uni vers[facility] BASIC METABOLIC PANEL 2022-04-25 09:01:00 Ailyn Yusuf [facility] [place] (NA, K, CL, CO2, GLUCOSE, Medica l Branch BUN, CREATININE, CA) CBC WITH DIFF 2022-04-25 09:01:00 Ailyn Yusuf [facility] BASIC METABOLIC PANEL 2022-04-25 09:01:00 Ailyn Yusuf [facility] [place] (NA, K, CL, CO2, GLUCOSE, Medica l Branch BUN, CREATININE, CA) CBC WITH DIFF 2022-04-25 09:01:00 Ailyn Yusuf [facility] POCT GLUCOSE (AUTOMATED) 2022-04-25 08:51:00 OvAmy chii Uni vers[facility] POCT GLUCOSE (AUTOMATED) 2022-04-25 08:51:00 Ovarti Rashad Uni [facility] POCT GLUCOSE (AUTOMATED) 2022-04-25 06:04:00 Ovarti Rashad [facility] POCT GLUCOSE (AUTOMATED) 2022-04-25 06:04:00 OvAmy chii [facility] POCT GLUCOSE (AUTOMATED) 2022-04-25 01:56:00 Lex Rashad Deloris [facility] POCT GLUCOSE (AUTOMATED) 2022-04-25 01:56:00 Ovarti Rashad [facility] POCT GLUCOSE (AUTOMATED) 2022-04-24 23:12:00 Lex Rashad Deloris [facility] POCT GLUCOSE (AUTOMATED) 2022-04-24 23:12:00 OvRashad [facility] POCT GLUCOSE (AUTOMATED) 2022-04-24 19:00:00 Ovarti Rashad Deloris [facility] POCT GLUCOSE (AUTOMATED) 2022-04-24 19:00:00 Rashad [facility] PHOSPHORUS 2022-04-24 15:33:00 Lex [facility] MAGNESIUM 2022-04-24 15:33:00 Ovarti [facility] BASIC METABOLIC PANEL 2022-04-24 15:33:00 Lex [facility] (NA, K, CL, CO2, GLUCOSE, Medica l Branch BUN, CREATININE, CA) CBC WITH DIFF 2022-04-24 15:33:00 Lex [facility] N-TERMINAL PRO-BNP 2022-04-24 15:33:00 [facility]-24 15:33:00 [facility] 2022-04-24 15:33:00 Ovarti [facility] BASIC METABOLIC PANEL 2022-04-24 15:33:00 Lex [facility] (NA, K, CL, CO2, GLUCOSE, Medica l Branch BUN, CREATININE, CA) CBC WITH DIFF 2022-04-24 15:33:00 Ovarti [facility] N-TERMINAL PRO-BNP 2022-04-24 15:33:00 Lex [facility] POCT GLUCOSE (AUTOMATED) 2022-04-24 15:20:00 Rashad Burnett Uni [facility] POCT GLUCOSE (AUTOMATED) 2022-04-24 15:20:00 Rashad Burnett Uni vers[facility] VITAMIN D, 25-OH 2022-04-24 09:08:00 Hakeem [facility] VITAMIN D, 25-OH 2022-04-24 09:08:00 Hakeem [facility] POCT GLUCOSE (AUTOMATED) 2022-04-24 08:42:00 Rashad Burnett Uni [facility] POCT GLUCOSE (AUTOMATED) 2022-04-24 08:42:00 Rashad Burnett Uni [facility] URINALYSIS 2022-04-24 07:12[facility]24 07:12:00 [facility] URINALYSIS 2022-04-24 07:12:00 Sameer [facility] URINE CULTURE 2022-04-24 07:12:00 Sameer [facility] POCT GLUCOSE (AUTOMATED) 2022-04-24 05:52:00 OvAmy chii Uni [facility] POCT GLUCOSE (AUTOMATED) 2022-04-24 05:52:00 Oville Rashad Uni [facility] POCT GLUCOSE (AUTOMATED) 2022-04-24 01:27:00 Amy Burnetti Uni [facility] POCT GLUCOSE (AUTOMATED) 2022-04-24 01:27:00 OvilleZhangRashad Uni vers[facility] of [facility] POCT GLUCOSE (AUTOMATED) 2022-04-23 22:58:00 Oville, Rashad Uni [facility] POCT GLUCOSE (AUTOMATED) 2022-04-23 22:58:00 Ovarti Rashad Uni [facility] POCT GLUCOSE (AUTOMATED) 2022-04-23 18:26:00 Ovarti Rashad [facility] POCT GLUCOSE (AUTOMATED) 2022-04-23 18:26:00 Oville Rashad [facility] POCT GLUCOSE (AUTOMATED) 2022-04-23 14:45:00 Rashad Burnett versity of [facility] POCT GLUCOSE (AUTOMATED) 2022-04-23 14:45:00 Rashad Burnett versity of [facility] POCT GLUCOSE (AUTOMATED) 2022-04-23 12:39:00 Rashad Burnett [facility] POCT GLUCOSE (AUTOMATED) 2022-04-23 12:39:00 Rashad Burnett versity of [facility] BASIC METABOLIC PANEL 2022-04-23 11:22:00 Oneida Stout [facility] (NA, K, CL, CO2, GLUCOSE, Medica l Branch BUN, CREATININE, CA) BASIC METABOLIC PANEL 2022-04-23 11:22:00 Oneida Stout [facility] (NA, K, CL, CO2, GLUCOSE, Medica l Branch BUN, CREATININE, CA) POCT GLUCOSE (AUTOMATED) 2022-04-23 06:49:00 Rashad Burnett Uni [facility] POCT GLUCOSE (AUTOMATED) 2022-04-23 06:49:00 Rashad Burnett Uni [facility] US RETROPERITONEAL 2022-04-23 02:05:00 Hakeem, [facility] Branch US RETROPERITONEAL 2022-04-23 02:05:00 Hakeem, [facility] POCT GLUCOSE (AUTOMATED) 2022-04-23 01:54:00 Rashad Burnett Uni [facility] POCT GLUCOSE (AUTOMATED) 2022-04-23 01:54:00 Rashad Burnett versity of [facility] POCT GLUCOSE (AUTOMATED) 2022-04-22 21:45:00 Rashad Burnett [facility] POCT GLUCOSE (AUTOMATED) 2022-04-22 21:45:00 Rashad Burnett [facility] POCT GLUCOSE (AUTOMATED) 2022-04-22 17:09:00 Arielle Palomino versity of [facility] POCT GLUCOSE (AUTOMATED) 2022-04-22 17:09:00 Arielle Palomino Uni vers[facility] CREATINE KINASE 2022-04-22 16:35:00 Katrin Palacio [facility] TROPONIN I 2022-04-22 16:35:00 Arielle Palomino [facility] BASIC METABOLIC PANEL 2022-04-22 16:35:00 Arielle Palomino [facility] (NA, K, CL, CO2, GLUCOSE, Medica l Branch BUN, CREATININE, CA) CREATINE KINASE 2022-04-22 16:35:00 Katrin Palacio [facility] TROPONIN I 2022-04-22 16:35:00 Arielle Palomino [facility] BASIC METABOLIC PANEL 2022-04-22 16:35:00 Arielle Palomino [facility] (NA, K, CL, CO2, GLUCOSE, Medica l Branch BUN, CREATININE, CA) OCCULT (GUAIAC) BLOOD 2022-04-22 15:48:00 Candelario farheen [facility] OCCULT (GUAIAC) BLOOD 2022-04-22 15:48:00 Arielle Palomino [facility] TRANSTHORACIC ECHO (TTE) 2022-04-22 14:55:00 [facility] (TTE) 2022-04-22 14:55:00 Arielle Palomino [facility] POCT GLUCOSE (AUTOMATED) 2022-04-22 12:40:00 [facility]) 2022-04-22 12:40:00 Arielle Palomino [facility] TROPONIN I 2022-04-22 12:13:00 Arielle Palomino [facility] INTACT PTH CALCIUM GROUP 2022-04-22 12:13:00 Katrin Palacio [facility] TROPONIN I 2022-04-22 12:13:00 Arielle Palomino [facility] INTACT PTH CALCIUM GROUP 2022-04-22 12:13:00 [facility] SPUTUM CULTURE 2022-04-22 11:18:00 [facility] 2022-04-22 11:18:00 Candelario [facility] COMP. METABOLIC PANEL 2022-04-22 11:00:00 Arielle Palomino [facility] ([id number]) [address] SEDIMENTATION RATE 2022-04-22 11:00:00 Candelario farheen [facility] CBC WITH DIFF 2022-04-22 11:00:00 Candelario [facility] N-TERMINAL PRO-BNP 2022-04-22 11:00:00 Candelario farheen [facility] COMP. METABOLIC PANEL 2022-04-22 11:00:00 Candelario farheen [facility] ([id number]) [facility] SEDIMENTATION RATE 2022-04-22 11:00:00 Candelario farheen [facility] CBC WITH DIFF 2022-04-22 11:00:00 Candelario farheen [facility] N-TERMINAL PRO-BNP 2022-04-22 11:00:00 Candelario farheen [facility] PHOSPHORUS 2022-04-22 07:46:00 Candelario [facility] CREATINE KINASE 2022-04-22 07:46:00 Candelario farheen [facility] URIC ACID 2022-04-22 07:46:00 Candelario [facility] MAGNESIUM 2022-04-22 07:46:00 Candelario [facility] FERRITIN SERUM 2022-04-22 07:46:00 Candelario [facility] VITAMIN B12, LEVEL 2022-04-22 07:46:00 Candelario [facility] TROPONIN I 2022-04-22 07:46:00 Candelario [facility] THYROID STIMULATING 2022-04-22 07:46:00 Candelario farheen [facility] HORMONE [facility] LIPID PANEL ([id number])(TOTAL 2022-04-22 07:46:00 Arielle Palomino [facility] CHOLESTEROL, Medical Branch TRIGLYCERIDES, HDL) IRON PANEL 2022-04-22 07:46:00 Arielle Palomino [facility] PROTHROMBIN TIME / INR 2022-04-22 07:46:00 Arielle Palomino [facility] MYCOPLASMA PNEUMONIAE 2022-04-22 07:46:00 Arielle Palomino [facility] ANTIBODY, [facility] [employer] [facility] VITAMIN D, 25-OH 2022-04-22 07:46:00 Candelario [facility] PROCALCITONIN 2022-04-22 07:46:00 Candelario [facility] PHOSPHORUS 2022-04-22 07:46:00 Candelario [facility] CREATINE KINASE 2022-04-22 07:46:00 Candelario [facility] URIC ACID 2022-04-22 07:46:00 Candelario [facility] MAGNESIUM 2022-04-22 07:46:00 Candelario [facility] FERRITIN SERUM 2022-04-22 07:46:00 Candelario [facility] VITAMIN B12, LEVEL 2022-04-22 07:46:00 Arielle Palomino [facility] TROPONIN I 2022-04-22 07:46:00 Candelario [facility] THYROID STIMULATING 2022-04-22 07:46:00 Candelario farheen [facility] HORMONE [facility] LIPID PANEL ([id number])(TOTAL 2022-04-22 07:46:00 Arielle Palomino [facility] CHOLESTEROL, Medical Branch TRIGLYCERIDES, HDL) IRON PANEL 2022-04-22 07:46:00 Candelario farheen [facility] PROTHROMBIN TIME / INR 2022-04-22 07:46:00 Arielle Palomino [facility] MYCOPLASMA PNEUMONIAE 2022-04-22 07:46:00 Arielle Palomino [facility] ANTIBODY, [facility] VITAMIN D, 25-OH 2022-04-22 07:46:00 Candelario [facility] PROCALCITONIN 2022-04-22 07:46:00 Arielle Palomino [facility] OSMOLALITY URINE 2022-04-22 07:42:00 Arielle Palomino [facility] URINE DRUG (IMMUNOASSAY) 2022-04-22 07:42:00 Arielle Palomino [facility] SCREEN URINALYSIS 2022-04-22 07:42:00 Arielle Palomino [facility] PNEUMOCOCCAL ANTIGEN 2022-04-22 07:42:00 Arielle Palomino [facility] URINE CULTURE 2022-04-22 07:42:00 Arielle Palomino [facility] UREA NITROGEN, URINE 2022-04-22 07:42:00 Arielle Palomino [facility] SODIUM, URINE RANDOM 2022-04-22 07:42:00 Arielle Palomino [facility] PROTEIN CREAT RATIO URINE 2022-04-22 07:42:[address] [facility] OSMOLALITY URINE 2022-04-22 07:42:00 Arielle Palomino [facility] URINE DRUG (IMMUNOASSAY) 2022-04-22 07:42:00 Arielle Palomino [facility] SCREEN URINALYSIS 2022-04-22 07:42:00 Arielle Palomino [facility] PNEUMOCOCCAL ANTIGEN 2022-04-22 07:42:00 Arielle Palomino [facility] URINE CULTURE 2022-04-22 07:42:00 Arielle Palomino [facility] UREA NITROGEN, URINE 2022-04-22 07:42:00 Arielle Palomino [facility] SODIUM, URINE RANDOM 2022-04-22 07:42:00 Arielle Palomino [facility] PROTEIN CREAT RATIO URINE 2022-04-22 07:42:[address] [facility] POCT GLUCOSE (AUTOMATED) 2022-04-22 07:34:00 Arielle [facility]omino [facility] POCT GLUCOSE (AUTOMATED) 2022-04-22 07:34:00 Arielle [facility] THORAX WO CONTRAST 2022-04-22 01:13:00 Mateusz Iqbal [facility] CT THORAX WO CONTRAST 2022-04-22 01:13:00 Mateusz Iqbal [facility] HB ECG ROUTINE & RHYTHM 2022-04-21 23:50:22 Farida [facility] HB ECG ROUTINE & RHYTHM 2022-04-21 23:50:22 Farida [facility] XR CHEST 1 VW 2022-04-21 23:43:13 Farida [facility] XR CHEST 1 VW 2022-04-21 23:43:13 Farida [facility] BLOOD CULTURE SCREEN 2022-04-21 23:43:00 Mateusz Iqbal [facility] BLOOD CULTURE SCREEN 2022-04-21 23:43:00 Mateusz [facility]bal [facility] BLOOD CULTURE SCREEN 2022-04-21 23:42:00 Mateusz I[facility]bal [facility] TROPONIN I 2022-04-21 23:42:00 Farida [facility] BASIC METABOLIC PANEL 2022-04-21 23:42:00 Mateusz Iqbal [facility] (NA, K, CL, CO2, GLUCOSE, Medica l Branch BUN, CREATININE, CA) DIFF CONSULT 2022-04-21 23:42:00 Arielle Palomino [place] [facility] [place] INTERPRETATION [facility] CBC WITH DIFF 2022-04-21 23:42:00 Farida [facility] GLYCOSYLATED HEMOGLOBIN 2022-04-21 23:42:00 Arielle Palomino [facility] (A1C) [facility] N-TERMINAL PRO-BNP 2022-04-21 23:42:00 Mateusz Iqbal [facility] COVID-19 (ID NOW RAPID 2022-04-21 23:42:00 Mateusz Iqbal [facility] TESTING) Medical Branch LAB ONLY COVID 2022-04-21 23:42:00 Mateusz Iqbal [facility] INTERPRETATION [facility] BLOOD CULTURE SCREEN 2022-04-21 23:42:00 Mateusz Iqbal [facility] TROPONIN I 2022-04-21 23:42:00 Mateusz Iqbal [facility] BASIC METABOLIC PANEL 2022-04-21 23:42:00 Mateusz Iqbal [facility] (NA, K, CL, CO2, GLUCOSE, Medica l Branch BUN, CREATININE, CA) DIFF CONSULT 2022-04-21 23:42:00 Candelario farheen [place] [facility] [place] INTERPRETATION [facility] CBC WITH DIFF 2022-04-21 23:42:00 Farida [facility] GLYCOSYLATED HEMOGLOBIN 2022-04-21 23:42:00 Arielle Palomino [facility] (A1C) [facility] N-TERMINAL PRO-BNP 2022-04-21 23:42:00 [facility] COVID-19 (ID NOW RAPID 2022-04-21 23:42:00 Mateusz Iqbal [facility] TESTING) Medical Branch LAB ONLY COVID 2022-04-21 23:42:00 Mateusz Iqbal [facility] INTERPRETATION [facility] EMERGENCY DEPARTMENT 2022-04-21 05:01:00 Doctor Unassigned, No [facility] DOCUMENTS Name Medical Branch EMERGENCY DEPARTMENT 2022-04-21 05:01:00 Doctor Unassigned, No [facility] DOCUMENTS Name Medical Branch Bronchoscopy, rigid or 2022-01-22 22:35:00 Memor iasusan Jane flexible, including fluoroscopic guidance, when performed; with bronchial alveolar lavage Amputation through 2014-07-31 00:00:00 [facility] Metatarsal Bones Amputation of Leg through 2014-07-31 00:00:00 [facility] Tibia and Fibula Appendectomy [facility] Insertion of Tunneled [facility] Catheter Using Fluoroscopic Guidance Place Gastrostomy Tube [facility] Tracheostomy [facility] Appendectomy [facility] Tonsillect[facility] Amputation<sup>1</sup> [facility] Irrigation of wound [facility] muñoz Transmetatarsal [facility] amputation of foot Amputation great toe [facility] rmann Appendix operation [facility] Amputation of toe and [facility] ermann metatarsal Amputation [facility] below-knee<sup>2</sup> Amputation of toe and [facility] met[facility]al Appendix operation [facility] Plan of Care Planned Activity Planned Date Details Comments Source Future Scheduled 2025-08-16 Lipid panel (procedure) [facility] 00:00:00 [code = [id number]] Medical Ce nter Future Scheduled 2025-08-16 Lipid panel (procedure) [facility] 00:00:00 [code = [id number]] Medical Ce nter Future Scheduled 2025-08-16 Lipid panel (procedure) [facility] 00:00:00 [code = [id number]] Medical Ce nter Future Scheduled 2025-08-16 Lipid panel (procedure) [facility] 00:00:00 [code = [id number]] Medical Ce nter Future Scheduled 2025-08-16 Lipid panel (procedure) [facility] 00:00:00 [code = 25626675] Medical Ce nter Future Scheduled 2025-08-16 Lipid panel (procedure) [facility] 00:00:00 [code = [id number]] Medical Ce nter Future Scheduled 2025-08-16 Lipid panel (procedure) [facility] 00:00:00 [code = [id number]] Medical Ce nter Future Scheduled 2025-08-16 Lipid panel (procedure) [facility] 00:00:00 [code = 32628719] Medical Ce nter Future Scheduled 2025-08-16 Lipid panel (procedure) [facility] 00:00:00 [code = 11078940] Medical Ce nter Future Scheduled 2025-08-16 Lipid panel (procedure) [facility] 00:00:00 [code = 69464599] Medical Ce nter Future Scheduled 2025-08-16 Lipid panel (procedure) [facility] 00:00:00 [code = [id number]] Medical Ce nter Future Scheduled 2025-08-16 Lipid panel (procedure) [facility] 00:00:00 [code = [id number]] Medical Ce nter Future Scheduled 2025-08-16 Lipid panel (procedure) [facility] 00:00:00 [code = [id number]] Medical Ce nter Future Scheduled 2025-08-16 Lipid panel (procedure) [facility] 00:00:00 [code = 26032375] Medical Ce nter Future Scheduled 2025-08-16 Lipid panel (procedure) [facility] 00:00:00 [code = [id number]] Medical Ce nter Future Scheduled 2025-08-16 Lipid panel (procedure) [facility] 00:00:00 [code = 30465004] Medical Ce nter Future Scheduled 2025-08-16 Lipid panel (procedure) [facility] 00:00:00 [code = 36937361] Medical Ce nter Future Scheduled 2025-08-16 Lipid panel (procedure) [facility] 00:00:00 [code = 83813649] Medical Ce nter Future Scheduled 2025-08-16 Lipid panel (procedure) [facility] 00:00:00 [code = 60372902] Medical Ce nter Future Scheduled 2025-08-16 Lipid panel (procedure) [facility] 00:00:00 [code = 67908275] Medical Ce nter Future Scheduled 2025-08-16 Lipid panel (procedure) [facility] 00:00:00 [code = 93371543] Medical Ce nter Future Scheduled 2025-08-16 Lipid panel (procedure) [facility] 00:00:00 [code = 31908335] Medical Ce nter Future Scheduled 2025-08-16 Lipid panel (procedure) [facility] 00:00:00 [code = 07249235] Medical Ce nter Future Scheduled 2025-08-16 Lipid panel (procedure) [facility] 00:00:00 [code = 10412384] Medical Ce nter Future Scheduled 2025-08-16 Lipid panel (procedure) [facility] 00:00:00 [code = 01183162] Medical Ce nter Future Scheduled 2023-06-[address] [facility] 00:[facility]:00 [facility] (procedure) [facility] [code = [id number]] Future Scheduled 2023-06-[address] [facility] 00:00:00 measurement (procedure) [facility] [code = 12086208] Future Scheduled 2023-06-[address] [facility] 00:00:00 measurement (procedure) [facility] [facility] [code = [id number]] Future Scheduled 2023-03-31 INFLUENZA VACCINE (Season [facility] 00:00:00 Ended) [code = INFLUENZA [facility] VACCINE (Season Ended)] Future Scheduled 2023-03-31 INFLUENZA VACCINE (Season [facility] 00:00:00 Ended) [code = INFLUENZA [facility] VACCINE (Season Ended)] Future Scheduled 2023-03-31 INFLUENZA VACCINE (Season [facility] 00:00:00 Ended) [code = INFLUENZA [facility] VACCINE (Season Ended)] Future Scheduled 2023-03-31 INFLUENZA VACCINE (Season [facility] 00:00:00 Ended) [code = INFLUENZA [facility] VACCINE (Season Ended)] Future Scheduled 2023-03-31 INFLUENZA VACCINE (Season [facility] 00:00:00 Ended) [code = INFLUENZA [facility] VACCINE (Season Ended)] Future Scheduled 2023-03-31 INFLUENZA VACCINE (Season [facility] 00:00:00 Ended) [code = INFLUENZA [facility] VACCINE (Season Ended)] Future Scheduled 2023-03-31 Influenza Vaccine (#1) [facility] [code = Influenza Vaccine [facility] (#[facility])] Future Scheduled 2023-03-31 Influenza Vaccine (#1) [facility] 00:[facility]:00 [code = Influenza Vaccine [facility] (#[facility])] Future Scheduled 2023-03-31 Influenza Vaccine (#1) [facility] 00:00:00 [code = Influenza Vaccine [facility] (#[facility])] Future Scheduled 2023-03-31 Influenza Vaccine (#1) [facility] 00:00:00 [code = Influenza Vaccine [facility] (#[facility])] Future Scheduled 2023-03-31 Influenza Vaccine (#1) [facility] 00:00:00 [code = Influenza Vaccine [facility] (#[facility])] Future Scheduled 2023-03-31 Influenza Vaccine (#1) [facility] 00:00:00 [code = Influenza Vaccine [facility] (#[facility])] Future Scheduled 2023-03-31 Influenza Vaccine (#1) [facility] 00:00:00 [code = Influenza Vaccine [facility] (#[facility])] Future Scheduled 2023-03-31 Influenza Vaccine (#1) [facility] 00:[facility]:00 [code = Influenza [facility]ine [facility] (#[facility])] Future Scheduled 2023-03-31 Influenza Vaccine (#1) [facility] 00:00:00 [code = Influenza Vaccine [facility] (#[facility])] Future Scheduled 2023-03-31 INFLUENZA VACCINE (Season [facility] 00:00:00 Ended) [code = INFLUENZA [facility] VACCINE (Season Ended)] Future Scheduled 2023-03-31 Influenza Vaccine (#1) [facility] 00:00:00 [code = Influenza Vaccine [facility] (#[facility])] Future Scheduled 2023-03-31 Influenza Vaccine (#1) [facility] 00:00:00 [code = Influenza Vaccine [facility] (#[facility])] Future Scheduled 2023-03-31 Influenza Vaccine (#1) [facility] 00:00:00 [code = Influenza Vaccine [facility] (#[facility])] Future Scheduled 2023-03-31 Influenza Vaccine (#1) [facility] 00:00:00 [code = Influenza Vaccine [facility] (#1)] Future Scheduled 2023-03-31 Influenza Vaccine (#1) [facility] 00:00:00 [code = Influenza Vaccine [facility] (#[facility])] Future Scheduled 2023-03-31 Influenza Vaccine (#1) [facility] 00:00:00 [code = Influenza Vaccine [facility] (#1)] Future Scheduled 2023-03-31 INFLUENZA VACCINE (Season [facility] 00:00:00 Ended) [code = INFLUENZA [facility] VACCINE (Season Ended)] Future Scheduled 2023-03-31 INFLUENZA VACCINE (Season [facility] 00:00:00 Ended) [code = INFLUENZA [facility] VACCINE (Season Ended)] Future Scheduled 2023-03-31 INFLUENZA VACCINE (Season [facility] 00:00:00 Ended) [code = INFLUENZA [facility] VACCINE (Season Ended)] Future Scheduled 2023-03-31 INFLUENZA VACCINE (Season [facility] 00:00:00 Ended) [code = INFLUENZA [facility] VACCINE (Season Ended)] Future Scheduled 2023-03-31 INFLUENZA VACCINE (Season [facility] 00:00:00 Ended) [code = INFLUENZA [facility] VACCINE (Season Ended)] Future Scheduled 2023-03-31 INFLUENZA VACCINE (Season [facility] 00:00:00 Ended) [code = INFLUENZA [facility] VACCINE (Season Ended)] Future Scheduled 2023-03-31 INFLUENZA VACCINE (Season [facility] 00:00:00 Ended) [code = INFLUENZA [facility] VACCINE (Season Ended)] Future Scheduled 2023-03-31 INFLUENZA VACCINE (Season [facility] 00:00:00 Ended) [code = INFLUENZA [facility] VACCINE (Season Ended)] Future Scheduled 2023-03-31 INFLUENZA VACCINE (Season [facility] 00:00:00 Ended) [code = INFLUENZA [facility] VACCINE (Season Ended)] Future Scheduled 2023-03-31 INFLUENZA VACCINE (Season [facility] 00:00:00 Ended) [code = INFLUENZA [facility] VACCINE (Season Ended)] Future Scheduled 2023-03-31 Influenza Vaccine (#1) [facility] [code = Influenza Vaccine [facility] (#[facility])] Future Scheduled 2023-03-[address] [facility]procedure[facility] [code = [id number]] Future Scheduled 2023-03-[address] [facility]00[facility]00 [facility] (procedure) [facility] [code = [id number]] Future Scheduled 2023-03-[address] [facility] 00:00:00 [facility] (procedure) [facility] [code = [id number]] Future Scheduled 2023-03-[address] [facility] 00:00:00 [facility] (procedure) [facility] [code = [id number]] Future Scheduled 2023-03-[address] [facility] 00[facility]00:00 [facility]procedure) [facility] [code = [id number]] Future Scheduled 2023-03-[address] [facility] 00:00:00 [facility] (procedure) [facility] [code = [id number]] Future Scheduled 2023-03-[address] [facility] 00:00:00 [facility] (procedure) [facility] [code = [id number]] Future Scheduled 2023-03-[address] [facility] 00:00:00 [facility] (procedure) [facility] [code = [id number]] Future Scheduled 2023-03-[address] [facility] 00:00:00 [facility] (procedure) [facility] [code = [id number]] Future Scheduled 2023-03-[address] [facility] 00:00:00 [facility] (procedure) [facility] [code = [id number]] Future Scheduled 2023-03-[address] [facility] 00:00:00 measurement (procedure) [facility] [code = [id number]] Future Scheduled 2023-03-[address] [facility] 00:00:00 measurement (procedure) [facility] [code = [id number]] Future Scheduled 2023-03-[address] [facility] 00:00:00 [facility] (procedure) [facility] [code = [id number]] Future Scheduled 2023-03-[address] [facility] 00:00:00 measurement (procedure) [facility] [code = [id number]] Future Scheduled 2023-03-[address] [facility] 00:00:00 measurement (procedure) [facility] [code = [id number]] Future Scheduled 2023-03-[address] [facility] 00:00:00 measurement (procedure) [facility] [code = [id number]] Future Scheduled 2023-03-[address] [facility] 00:00:00 measurement (procedure) [facility] [code = [id number]] Future Scheduled 2023-03-[address] [facility] 00:00:00 measurement (procedure) [facility] [code = [id number]] Future Scheduled 2023-03-[address] [facility] 00:00:00 measurement (procedure) [facility] [code = [id number]] Future Scheduled 2023-03-[address] [facility] 00:00:00 measurement (procedure) [facility] [code = [id number]] Future Scheduled 2023-03-[address] [facility] 00:00:00 measurement (procedure) [facility] [code = [id number]] Future Scheduled 2023-03-[address] [facility] 00:00:00 measurement (procedure) [facility] [code = [id number]] Future Scheduled 2022-07-[address] [facility] 00:00:00 (12+) [code = DEPRESSION [facility] SCREENING (12+)] Future Scheduled 2022-07-[address] [facility] 00:00:00 (12+) [code = DEPRESSION [facility] SCREENING (12+)] Future Scheduled 2022-07-[address] [facility] 00:00:00 (12+) [code = DEPRESSION [facility] SCREENING (12+)] Future Scheduled 2022-07-[address] [facility] 00:00:00 (12+) [code = DEPRESSION [facility] SCREENING (12+)] Future Scheduled 2022-07-[address] [facility] 00:00:00 (12+) [code = DEPRESSION [facility] SCREENING (12+)] Future Scheduled 2022-07-[address] [facility] 00:00:00 (12+) [code = DEPRESSION [facility] SCREENING (12+)] Future Scheduled 2022-07-[address] [facility] 00:00:00 (12+) [code = DEPRESSION [facility] SCREENING (12+)] Future Scheduled 2022-07-[address] [facility] 00:00:00 (12+) [code = DEPRESSION [facility] SCREENING (12+)] Future Scheduled 2022-07-[address] [facility] 00:00:00 (12+) [code = DEPRESSION [facility] SCREENING (12+)] Future Scheduled 2022-07-[address] [facility] 00:00:00 (12+) [code = DEPRESSION [facility] SCREENING (12+)] Future Scheduled 2022-07-[address] [facility] 00:00:00 (12+) [code = DEPRESSION [facility] SCREENING (12+)] Future Scheduled 2022-07-[address] [facility] 00:00:00 (12+) [code = DEPRESSION [facility] SCREENING (12+)] Future Scheduled 2022-07-[address] [facility] 00:00:00 (12+) [code = DEPRESSION [facility] SCREENING (12+)] Future Scheduled 2022-07-[address] [facility] 00:00:00 (12+) [code = DEPRESSION [facility] SCREENING (12+)] Future Scheduled 2022-07-[address] [facility] 00:00:00 (12+) [code = DEPRESSION [facility] SCREENING (12+)] Future Scheduled 2022-07-[address] [facility] 00:00:00 (12+) [code = DEPRESSION [facility] SCREENING (12+)] Future Scheduled 2022-07-[address] [facility] 00:00:00 (12+) [code = DEPRESSION [facility] SCREENING (12+)] Future Scheduled 2022-07-[address] [facility] 00:00:00 (12+) [code = DEPRESSION [facility] SCREENING (12+)] Future Scheduled 2022-07-[address] [facility] 00:00:00 (12+) [code = DEPRESSION [facility] SCREENING (12+)] Future Scheduled 2022-07-[address] [facility] 00:00:00 (12+) [code = DEPRESSION [facility] SCREENING (12+)] Future Scheduled 2022-07-[address] [facility] 00:00:00 (12+) [code = DEPRESSION [facility] SCREENING (12+)] Future Scheduled 2022-07-[address] [facility] 00:00:00 (12+) [code = DEPRESSION [facility] SCREENING (12+)] Future Scheduled 2022-07-[address] [facility] 00:00:00 (12+) [code = DEPRESSION [facility] SCREENING (12+)] Future Scheduled 2022-07-[address] [facility] 00:00:00 (12+) [code = DEPRESSION [facility] SCREENING (12+)] Future Scheduled 2022-07-[address] [facility] 00:00:00 (12+) [code = DEPRESSION [facility] SCREENING (12+)] Future Scheduled 2022-07-[address] [facility] 00:00:00 (12+) [code = DEPRESSION [facility] SCREENING (12+)] Future Scheduled 2022-07-[address] [facility] 00:00:00 (12+) [code = DEPRESSION [facility] SCREENING (12+)] Future Scheduled 2022-07-[address] [facility] 00:00:00 (12+) [code = DEPRESSION [facility] SCREENING (12+)] Future Scheduled 2022-07-[address] [facility] 00:00:00 (12+) [code = DEPRESSION [facility] SCREENING (12+)] Future Scheduled 2022-07-[address] [facility] 00:00:00 (12+) [code = DEPRESSION [facility] SCREENING (12+)] Future Scheduled 2022-07-[address] [facility] 00:00:00 (12+) [code = DEPRESSION [facility] SCREENING (12+)] Future Scheduled 2022-07-[address] [facility] 00:00:00 (12+) [code = DEPRESSION [facility] SCREENING (12+)] Future Scheduled 2022-07-[address] [facility] 00:00:00 (12+) [code = DEPRESSION [facility] SCREENING (12+)] Future Scheduled 2018-04-[address] [facility] 00:00:00 measurement (procedure) [facility] [code = [id number]] Future Scheduled 2018-04-[address] [facility] 00:00:00 measurement (procedure) [facility] [code = [id number]] Future Scheduled 2018-04-[address] [facility] 00:00:00 measurement (procedure) [facility] [code = [id number]] Future Scheduled 2018-04-[address] [facility] 00:00:00 measurement (procedure) [facility] [code = [id number]] Future Scheduled 2018-04-[address] [facility] 00:00:00 measurement (procedure) [facility] [code = [id number]] Future Scheduled 2018-04-[address] [facility] 00:00:00 measurement (procedure) [facility] [code = [id number]] Future Scheduled 2018-04-[address] [facility] 00:00:00 measurement (procedure) [facility] [code = [id number]] Future Scheduled 2018-04-[address] [facility] 00:00:00 measurement (procedure) [facility] [code = [id number]] Future Scheduled 2017-10-30 MEDIC[address] ANNUAL WELLNESS [facility] 00:00:00 (YEAR 2 or FIRST YEAR if [facility] no IPPE) [code = MEDICARE ANNUAL WELLNESS (YEAR 2 or FIRST YEAR if no IPPE)] Future Scheduled 2017-10-[address] [facility] 00:00:00 (YEAR 2 or FIRST YEAR if [facility] no IPPE) [code = MEDICARE ANNUAL WELLNESS (YEAR 2 or FIRST YEAR if no IPPE)] Future Scheduled 2017-10-30 MED[address] [facility]NUAL [facility]NESS [facility] 00:00:00 (YEAR 2 or FIRST YEAR if [facility] no IPPE) [code = MEDICARE ANNUAL WELLNESS (YEAR 2 or FIRST YEAR if no IPPE)] Future Scheduled 2017-10-30 MEDIC[address] [facility]NUAL [facility] 00:00:00 (YEAR 2 or FIRST YEAR if [facility] no IPPE) [code = MEDICARE ANNUAL WELLNESS (YEAR 2 or FIRST YEAR if no IPPE)] Future Scheduled 2017-10-30 MEDIC[address] [facility]NUAL [facility]NESS [facility] 00:00:00 (YEAR 2 or FIRST YEAR if [facility] no IPPE) [code = MEDICARE ANNUAL WELLNESS (YEAR 2 or FIRST YEAR if no IPPE)] Future Scheduled 2017-10-30 [facility] [facility]NUAL [facility] 00:00:00 (YEAR 2 or FIRST YEAR if [facility] no IPPE) [code = MEDICARE ANNUAL WELLNESS (YEAR 2 or FIRST YEAR if no IPPE)] Future Scheduled 2017-10-30 MED[address] [facility]NUAL [facility] 00:00:00 (YEAR 2 or FIRST YEAR if [facility] no IPPE) [code = MEDICARE ANNUAL WELLNESS (YEAR 2 or FIRST YEAR if no IPPE)] Future Scheduled 2017-10-30 [facility] [facility]NUAL [facility] 00:00:00 (YEAR 2 or FIRST YEAR if [facility] no IPPE) [code = MEDICARE ANNUAL WELLNESS (YEAR 2 or FIRST YEAR if no IPPE)] Future Scheduled 2017-10-30 [facility] [facility]NUAL [facility] 00:00:00 (YEAR 2 or FIRST YEAR if [facility] no IPPE) [code = MEDICARE ANNUAL WELLNESS (YEAR 2 or FIRST YEAR if no IPPE)] Future Scheduled 2017-10-30 [facility] [facility]NUAL [facility] 00:00:00 (YEAR 2 or FIRST YEAR if [facility] no IPPE) [code = MEDICARE ANNUAL WELLNESS (YEAR 2 or FIRST YEAR if no IPPE)] Future Scheduled 2017-10-30 [facility] [facility]NUAL [facility] 00:00:00 (YEAR 2 or FIRST YEAR if [facility] no IPPE) [code = MEDICARE ANNUAL WELLNESS (YEAR 2 or FIRST YEAR if no IPPE)] Future Scheduled 2017-10-30 [facility] [facility]NUAL [facility] 00:00:00 (YEAR 2 or FIRST YEAR if [facility] no IPPE) [code = MEDICARE ANNUAL WELLNESS (YEAR 2 or FIRST YEAR if no IPPE)] Future Scheduled 2017-10-30 [facility] [facility]NUAL [facility] 00:00:00 (YEAR 2 or FIRST YEAR if [facility] no IPPE) [code = MEDICARE ANNUAL WELLNESS (YEAR 2 or FIRST YEAR if no IPPE)] Future Scheduled 2017-10-30 [facility] [facility]NUAL [facility] 00:00:00 (YEAR 2 or FIRST YEAR if [facility] no IPPE) [code = MEDICARE ANNUAL WELLNESS (YEAR 2 or FIRST YEAR if no IPPE)] Future Scheduled 2017-10-30 [facility] [facility]NUAL [facility] 00:00:00 (YEAR 2 or FIRST YEAR if [facility] no IPPE) [code = MEDICARE ANNUAL WELLNESS (YEAR 2 or FIRST YEAR if no IPPE)] Future Scheduled 2017-10-30 [facility] [facility]NUAL [facility] 00:00:00 (YEAR 2 or FIRST YEAR if [facility] no IPPE) [code = MEDICARE ANNUAL WELLNESS (YEAR 2 or FIRST YEAR if no IPPE)] Future Scheduled 2017-10-30 [facility] [facility]NUAL [facility] 00:00:00 (YEAR 2 or FIRST YEAR if [facility] no IPPE) [code = MEDICARE ANNUAL WELLNESS (YEAR 2 or FIRST YEAR if no IPPE)] Future Scheduled 2017-10-30 [facility] [facility]NUAL [facility] 00:00:00 (YEAR 2 or FIRST YEAR if [facility] no IPPE) [code = MEDICARE ANNUAL WELLNESS (YEAR 2 or FIRST YEAR if no IPPE)] Future Scheduled 2017-10-30 [facility] [facility]NU[facility] 00:00:00 (YEAR 2 or FIRST YEAR if [facility] no IPPE) [code = MEDICARE ANNUAL WELLNESS (YEAR 2 or FIRST YEAR if no IPPE)] Future Scheduled 2017-10-30 [facility] [facility]NUAL [facility] 00:00:00 (YEAR 2 or FIRST YEAR if [facility] no IPPE) [code = MEDICARE ANNUAL WELLNESS (YEAR 2 or FIRST YEAR if no IPPE)] Future Scheduled 2017-10-30 [facility] [facility]NUAL [facility] 00:00:00 (YEAR 2 or FIRST YEAR if [facility] no IPPE) [code = MEDICARE ANNUAL WELLNESS (YEAR 2 or FIRST YEAR if no IPPE)] Future Scheduled 2017-10-[address] [facility] [facility]NUAL [facility] 00:00:00 (YEAR 2 or FIRST YEAR if [facility] no IPPE) [code = MEDICARE ANNUAL WELLNESS (YEAR 2 or FIRST YEAR if no IPPE)] Future Scheduled 2017-10-30 [facility] [facility]NUAL [facility] 00:00:00 (YEAR 2 or FIRST YEAR if [facility] no IPPE) [code = MEDICARE ANNUAL WELLNESS (YEAR 2 or FIRST YEAR if no IPPE)] Future Scheduled 2017-10-30 [facility] [facility]NUAL [facility] 00:00:00 (YEAR 2 or FIRST YEAR if [facility] no IPPE) [code = MEDICARE ANNUAL WELLNESS (YEAR 2 or FIRST YEAR if no IPPE)] Future Scheduled 2017-10-30 [facility] [facility]NU[facility] 00:00:00 (YEAR 2 or FIRST YEAR if [facility] no IPPE) [code = MEDICARE ANNUAL WELLNESS (YEAR 2 or FIRST YEAR if no IPPE)] Future Scheduled 2017-10-30 [facility] [facility]NU[facility] 00:00:00 (YEAR 2 or FIRST YEAR if [facility] no IPPE) [code = MEDICARE ANNUAL WELLNESS (YEAR 2 or FIRST YEAR if no IPPE)] Future Scheduled 2017-10-30 [facility] [facility]NU[facility] 00:00:00 (YEAR 2 or FIRST YEAR if [facility] no IPPE) [code = MEDICARE ANNUAL WELLNESS (YEAR 2 or FIRST YEAR if no IPPE)] Future Scheduled 2017-10-30 [facility] [facility]NU[facility] 00:00:00 (YEAR 2 or FIRST YEAR if [facility] no IPPE) [code = MEDICARE ANNUAL WELLNESS (YEAR 2 or FIRST YEAR if no IPPE)] Future Scheduled 2017-10-30 [facility] [facility]NUAL [facility] 00:00:00 (YEAR 2 or FIRST YEAR if [facility] no IPPE) [code = MEDICARE ANNUAL WELLNESS (YEAR 2 or FIRST YEAR if no IPPE)] Future Scheduled 2017-10-30 [facility] [facility]NUAL [facility] 00:00:00 (YEAR 2 or FIRST YEAR if [facility] no IPPE) [code = MEDICARE ANNUAL WELLNESS (YEAR 2 or FIRST YEAR if no IPPE)] Future Scheduled 2017-10-30 [facility]NUAL [facility] 00:00:00 (YEAR 2 or FIRST YEAR if [facility] no IPPE) [code = MEDICARE ANNUAL WELLNESS (YEAR 2 or FIRST YEAR if no IPPE)] Future Scheduled 2017-10-30 [facility] [facility]NUAL [facility] 00:00:00 (YEAR 2 or FIRST YEAR if [facility] no IPPE) [code = MEDICARE ANNUAL WELLNESS (YEAR 2 or FIRST YEAR if no IPPE)] Future Scheduled 2017-10-[address] [facility] [facility]NUAL [facility] 00:00:00 (YEAR 2 or FIRST YEAR if [facility] no IPPE) [code = MEDICARE ANNUAL WELLNESS (YEAR 2 or FIRST YEAR if no IPPE)] Future Scheduled 2016 SHINGLES VACCINES ([address] [facility] 00:00:00 2) [code = [facility]ACCINES (1 of 2)] Future Scheduled 2016 SHINGLES VACCINES ([address] [facility] 00:00:00 2) [code = [facility]LES [facility] VACCINES (1 of 2)] Future Scheduled 2016 SHINGLES VACCINES ([address] [facility] 00:00:00 2) [code = [facility]LES [facility] VACCINES (1 of 2)] Future Scheduled 2016 SHINGLES VACCINES ([address] [facility] 00:00:00 2) [code = [facility] VACCINES (1 of 2)] Future Scheduled 2016 SHINGLES VACCINES ([address] [facility] 00:00:00 2) [code = [facility] VACCINES (1 of 2)] Future Scheduled 2016 SHINGLES VACCINES ([address] [facility] 00:00:00 2) [code = [facility]LES [facility] VACCINES (1 of 2)] Future Scheduled 2016 SHINGLES VACCINES ([address] [facility] 00:00:00 2) [code = [facility]LES [facility] VACCINES (1 of 2)] Future Scheduled 2016 SHINGLES VACCINES ([address] [facility] 00:00:00 2) [code = [facility] VACCINES (1 of 2)] Future Scheduled 2016 SHINGLES VACCINES ([address] [facility] 00:00:00 2) [code = [facility]LES [facility] VACCINES (1 of 2)] Future Scheduled 2016 SHINGLES VACCINES ([address] [facility] 00:00:00 2) [code = [facility] VACCINES (1 of 2)] Future Scheduled 2016 SHINGLES VACCINES ([address] [facility] 00:00:00 2) [code = [facility] VACCINES (1 of 2)] Future Scheduled 2016 SHINGLES VACCINES ([address] [facility] 00:00:00 2) [code = [facility] VACCINES (1 of 2)] Future Scheduled 2016 SHINGLES VACCINES ([address] [facility] 00:00:00 2) [code = [facility] VACCINES (1 of 2)] Future Scheduled 2016 SHINGLES VACCINES ([address] [facility] 00:00:00 2) [code = [facility] VACCINES (1 of 2)] Future Scheduled 2016 SHINGLES VACCINES ([address] [facility] 00:00:00 2) [code = [facility] VACCINES (1 of 2)] Future Scheduled 2016 SHINGLES VACCINES ([address] [facility] 00:00:00 2) [code = [facility] VACCINES (1 of 2)] Future Scheduled 2016 SHINGLES VACCINES ([address] [facility] 00:00:00 2) [code = [facility] VACCINES (1 of 2)] Future Scheduled 2016 SHINGLES VACCINES ([address] [facility] 00:00:00 2) [code = [facility] VACCINES (1 of 2)] Future Scheduled 2016 SHINGLES VACCINES ([address] [facility] 00:00:00 2) [code = [facility] VACCINES (1 of 2)] Future Scheduled 2016 SHINGLES VACCINES ([address] [facility] 00:00:00 2) [code = [facility] VACCINES (1 of 2)] Future Scheduled 2016 SHINGLES VACCINES ([address] [facility] 00:00:00 2) [code = [facility] VACCINES (1 of 2)] Future Scheduled 2016 SHINGLES VACCINES ([address] [facility] 00:00:00 2) [code = [facility] VACCINES (1 of 2)] Future Scheduled 2016 SHINGLES VACCINES ([address] [facility] 00:00:00 2) [code = [facility] VACCINES (1 of 2)] Future Scheduled 2016 SHINGLES VACCINES ([address] [facility] 00:00:00 2) [code = [facility] VACCINES (1 of 2)] Future Scheduled 2016 SHINGLES VACCINES ([address] [facility] 00:00:00 2) [code = [facility] VACCINES (1 of 2)] Future Scheduled 2016 SHINGLES VACCINES ([address] [facility] 00:00:00 2) [code = [facility] VACCINES (1 of 2)] Future Scheduled 2016 SHINGLES VACCINES ([address] [facility] 00:00:00 2) [code = [facility] VACCINES (1 of 2)] Future Scheduled 2016 SHINGLES VACCINES ([address] [facility] 00:00:00 2) [code = [facility] VACCINES (1 of 2)] Future Scheduled 2016 SHINGLES VACCINES ([address] [facility] 00:00:00 2) [code = [facility] VACCINES (1 of 2)] Future Scheduled 2016 SHINGLES VACCINES ([address] [facility] 00:00:00 2) [code = [facility] VACC[facility]ES (1 of 2)] Future Scheduled 2016 [facility] VACCINES ([address] [facility] 00:00:00 2) [code = [facility] VACC[facility]ES (1 of 2)] Future Scheduled 2016 [facility] VACCINES ([address] [facility] 00:00:00 2) [code = [facility] VACC[facility]ES (1 of 2)] Future Scheduled 2016 [facility] VACCINES ([address] [facility] 00:00:00 2) [code = [facility] VACCINES (1 of 2)] Future Scheduled 2001 Lipid panel (procedure) [facility] 00:00:00 [code = [id number]] [facility] Future Scheduled 2001 Lipid panel (procedure) [facility] 00:00:00 [code = [id number]] [facility] Future Scheduled 2001 Lipid panel (procedure) [facility] 00:00:00 [code = [id number]] Medical Ce nter Future Scheduled 2001 Lipid panel (procedure) [facility] 00:00:00 [code = [id number]] Medical Ce nter Future Scheduled 2001 Lipid panel (procedure) [facility] 00:00:00 [code = [id number]] Medical Ce nter Future Scheduled 2001 Lipid panel (procedure) [facility] 00:00:00 [code = [id number]] Medical Ce nter Future Scheduled 2001 Lipid panel (procedure) [facility] 00:00:00 [code = [id number]] Medical Ce nter Future Scheduled 2001 Lipid panel (procedure) [facility] 00:00:00 [code = [id number]] Medical Ce nter Future Scheduled 1985 DTAP/TDAP/TD VACCINES ([address] [facility] 00:00:00 - Tdap) [code = [facility] Cent [facility] DTAP/TDAP/TD VACCINES (1 - Tdap)] Future Scheduled 1985 DTAP/TDAP/TD VACCINES ([address] [facility] 00:00:00 - Tdap) [code = Medical Cent er DTAP/TDAP/TD VACCINES (1 - Tdap)] Future Scheduled 1985 DTAP/TDAP/TD VACCINES ([address] [facility] 00:00:00 - Tdap) [code = Medical Cent er DTAP/TDAP/TD VACCINES (1 - Tdap)] Future Scheduled 1985 DTAP/TDAP/TD VACCINES ([address] [facility] 00:00:00 - Tdap) [code = [facility] Cent er DTAP/TDAP/TD VACCINES (1 - Tdap)] Future Scheduled 1985 DTAP/TDAP/TD VACCINES ([address] [facility] 00:00:00 - Tdap) [code = [facility] Cent er DTAP/TDAP/TD VACCINES (1 - Tdap)] Future Scheduled 1985 DTAP/TDAP/TD VACCINES ([address] [facility] 00:00:00 - Tdap) [code = [facility] Cent er DTAP/TDAP/TD VACCINES (1 - Tdap)] Future Scheduled 1985 DTAP/TDAP/TD VACCINES ([address] [facility] 00:00:00 - Tdap) [code = [facility] Cent er DTAP/TDAP/TD VACCINES (1 - Tdap)] Future Scheduled 1985 DTAP/TDAP/TD VACCINES ([address] [facility] 00:00:00 - Tdap) [code = [facility] Cent er DTAP/TDAP/TD VACCINES (1 - Tdap)] Future Scheduled 1985 DTAP/TDAP/TD VACCINES ([address] [facility] 00:00:00 - Tdap) [code = [facility] Cent er DTAP/TDAP/TD VACCINES (1 - Tdap)] Future Scheduled 1985 DTAP/TDAP/TD VACCINES ([address] [facility] 00:00:00 - Tdap) [code = [facility] Cent er DTAP/TDAP/TD VACCINES (1 - Tdap)] Future Scheduled 1985 DTAP/TDAP/TD VACCINES ([address] [facility] 00:00:00 - Tdap) [code = [facility] Cent er DTAP/TDAP/TD VACCINES (1 - Tdap)] Future Scheduled 1985 DTAP/TDAP/TD VACCINES ([address] [facility] 00:00:00 - Tdap) [code = [facility] Cent er DTAP/TDAP/TD VACCINES (1 - Tdap)] Future Scheduled 1985 DTAP/TDAP/TD VACCINES ([address] [facility] 00:00:00 - Tdap) [code = [facility] Cent er DTAP/TDAP/TD VACCINES (1 - Tdap)] Future Scheduled 1985 DTAP/TDAP/TD VACCINES ([address] [facility] 00:00:00 - Tdap) [code = [facility] Cent er DTAP/TDAP/TD VACCINES (1 - Tdap)] Future Scheduled 1985 DTAP/TDAP/TD VACCINES ([address] [facility] 00:00:00 - Tdap) [code = [facility] er DTAP/TDAP/TD VACCINES (1 - Tdap)] Future Scheduled 1985 DTAP/TDAP/TD VACCINES ([address] [facility] 00:00:00 - Tdap) [code = [facility] Cent er DTAP/TDAP/TD VACCINES (1 - Tdap)] Future Scheduled 1985 DTAP/TDAP/TD VACCINES ([address] [facility] 00:00:00 - Tdap) [code = [facility] Cent er DTAP/TDAP/TD VACCINES (1 - Tdap)] Future Scheduled 1985 DTAP/TDAP/TD VACCINES ([address] [facility] 00:00:00 - Tdap) [code = [facility] er DTAP/TDAP/TD VACCINES (1 - Tdap)] Future Scheduled 1985 DTAP/TDAP/TD VACCINES ([address] [facility] 00:00:00 - Tdap) [code = [facility] er DTAP/TDAP/TD VACCINES (1 - Tdap)] Future Scheduled 1985 DTAP/TDAP/TD VACCINES ([address] [facility] 00:00:00 - Tdap) [code = [facility] er DTAP/TDAP/TD VACCINES (1 - Tdap)] Future Scheduled 1985 DTAP/TDAP/TD VACCINES ([address] [facility] 00:00:00 - Tdap) [code = [facility] er DTAP/TDAP/TD VACCINES (1 - Tdap)] Future Scheduled 1985 DTAP/TDAP/TD VACCINES ([address] [facility] 00:00:00 - Tdap) [code = [facility] er DTAP/TDAP/TD VACCINES (1 - Tdap)] Future Scheduled 1985 DTAP/TDAP/TD VACCINES ([address] [facility] 00:00:00 - Tdap) [code = [facility] Cent er DTAP/TDAP/TD VACCINES (1 - Tdap)] Future Scheduled 1985 DTAP/TDAP/TD VACCINES ([address] [facility] 00:00:00 - Tdap) [code = [facility] Cent er DTAP/TDAP/TD VACCINES (1 - Tdap)] Future Scheduled 1985 DTAP/TDAP/TD VACCINES ([address] [facility] 00:00:00 - Tdap) [code = [facility] er DTAP/TDAP/TD VACCINES (1 - Tdap)] Future Scheduled 1985 DTAP/TDAP/TD VACCINES ([address] [facility] 00:00:00 - Tdap) [code = [facility] Cent er DTAP/TDAP/TD VACCINES (1 - Tdap)] Future Scheduled 1985 DTAP/TDAP/TD VACCINES ([address] [facility] 00:00:00 - Tdap) [code = [facility] Cent er DTAP/TDAP/TD VACCINES (1 - Tdap)] Future Scheduled 1985 DTAP/TDAP/TD VACCINES ([address] [facility] 00:00:00 - Tdap) [code = [facility] Cent er DTAP/TDAP/TD VACCINES (1 - Tdap)] Future Scheduled 1985 DTAP/TDAP/TD VACCINES ([address] [facility] 00:00:00 - Tdap) [code = [facility] Cent er DTAP/TDAP/TD VACCINES (1 - Tdap)] Future Scheduled 1985 DTAP/TDAP/TD VACCINES ([address] [facility] 00:00:00 - Tdap) [code = [facility] Cent er DTAP/TDAP/TD VACCINES (1 - Tdap)] Future Scheduled 1985 DTAP/TDAP/TD VACCINES ([address] [facility] 00:00:00 - Tdap) [code = [facility] Cent er DTAP/TDAP/TD VACCINES (1 - Tdap)] Future Scheduled 1985 DTAP/TDAP/TD VACCINES ([address] [facility] 00:00:00 - Tdap) [code = [facility] Cent er DTAP/TDAP/TD VACCINES (1 - Tdap)] Future Scheduled 1985 DTAP/TDAP/TD VACCINES ([address] [facility] 00:00:00 - Tdap) [code = [facility] DTAP/TDAP/TD VACCINES (1 - Tdap)] Future Scheduled 1984 [facility]ITIS [facility] [code = HEPATITIS C [facility] SCREENING] Future Scheduled 1984 [facility]ITIS C [facility] [code = HEPATITIS C Medical Center SCREENING] Future Scheduled 1984 [facility]ITIS C [facility]:00:00 [code = HEPATITIS C Medical Center SCREENING] Future Scheduled 1984 [facility]ITIS C [facility]:00:00 [code = HEPATITIS C Medical Center SCREENING] Future Scheduled 1984 [facility]ITIS C [facility]:00:00 [code = HEPATITIS C Medical Center SCREENING] Future Scheduled 1984 [facility]ITIS C [facility]:00:00 [code = HEPATITIS C Medical Center SCREENING] Future Scheduled 1984 [facility]ITIS C [facility]:00:00 [code = HEPATITIS C Medical Center SCREENING] Future Scheduled 1984 [facility]ITIS C [facility]:00:00 [code = HEPATITIS C Medical Center SCREENING] Future Scheduled 1984 [facility]PATITIS C [facility]:00:00 [code = HEPATITIS C Medical Center SCREENING] Future Scheduled 1984 [facility]PATITIS C [facility]:00:00 [code = HEPATITIS C Medical Center SCREENING] Future Scheduled 1984 HEPATITIS C [facility]:00:00 [code = HEPATITIS C Medical Center SCREENING] Future Scheduled 1984 [facility]PATITIS C [facility] 00:00:00 [code = HEPATITIS C Medical Center SCREENING] Future Scheduled 1984 HEPATITIS C [facility] 00:00:00 [code = HEPATITIS C Medical Center SCREENING] Future Scheduled 1984 HEPATITIS C [facility]:00:00 [code = HEPATITIS C Medical Center SCREENING] Future Scheduled 1984 HE[facility]ITIS C [facility]:00:00 [code = HEPATITIS C [facility] Center SCREENING] Future Scheduled 1984 [facility]ITIS C [facility]:00:00 [code = HEPATITIS C Medical Center SCREENING] Future Scheduled 1984 [facility]ITIS C [facility]:00:00 [code = HEPATITIS C Medical Center SCREENING] Future Scheduled 1984 [facility]PATITIS C [facility]:00:00 [code = HEPATITIS C Medical Center SCREENING] Future Scheduled 1984 HE[facility]ITIS C [facility] 00:00:00 [code = HEPATITIS C Medical Center SCREENING] Future Scheduled 1984 [facility]PATITIS C [facility]:00:00 [code = HEPATITIS C Medical Center SCREENING] Future Scheduled 1984 HEPATITIS C [facility]:00:00 [code = HEPATITIS C Medical Center SCREENING] Future Scheduled 1984 HEPATITIS C [facility] 00:00:00 [code = HEPATITIS C Medical Center SCREENING] Future Scheduled 1984 HEPATITIS C [facility] 00:00:00 [code = HEPATITIS C Medical Center SCREENING] Future Scheduled 1984 HEPATITIS C [facility] 00:00:00 [code = HEPATITIS C Medical Center SCREENING] Future Scheduled 1984 HEPATITIS C [facility] 00:00:00 [code = HEPATITIS C Medical Center SCREENING] Future Scheduled 1984 HEPATITIS C [facility] 00:00:00 [code = HEPATITIS C Medical Center SCREENING] Future Scheduled 1984 HEPATITIS C [facility] 00:00:00 [code = HEPATITIS C Medical Center SCREENING] Future Scheduled 1984 HEPATITIS C [facility] 00:00:00 [code = HEPATITIS C Medical Center SCREENING] Future Scheduled 1984 HEPATITIS C [facility] 00:00:00 [code = HEPATITIS C Medical Center SCREENING] Future Scheduled 1984 [facility]ITIS C [facility] 00:00:00 [code = HEPATITIS C Medical Center SCREENING] Future Scheduled 1984 [facility]PATITIS C [facility] 00:00:00 [code = HEPATITIS C Medical Center SCREENING] Future Scheduled 1984 HEPATITIS C [facility] 00:00:00 [code = HEPATITIS C Medical Center SCREENING] Future Scheduled 1984 [facility]PATITIS C [facility]:00:00 [code = HEPATITIS C Medical Center SCREENING] Future Scheduled [address] [facility] virus screening [facility] (procedure) [code = [id number]] Future Scheduled [address] Human immunodeficiency [facility]:00 virus screening [facility] (procedure) [code = [id number]] Future Scheduled [address] Human [facility] 00:00:00 virus screening [facility] (procedure) [code = [id number]] Future Scheduled [address] Human [address] [facility] 00:00:00 virus screening [facility] (procedure) [code = [id number]] Future Scheduled [address] Human [address] [facility] 00:00:00 virus screening [facility] (procedure) [code = [id number]] Future Scheduled [address] Human [address] [facility] 00:00:00 virus screening [facility] (procedure) [code = [id number]] Future Scheduled [address] Human immunodeficiency [facility] 00:00:00 virus screening [facility] (procedure) [code = [id number]] Future Scheduled [address] Human [address] [facility] 00:00:00 virus screening [facility] (procedure) [code = [id number]] Future Scheduled [address] Human immunodeficiency [facility] 00:00:00 virus screening [facility] (procedure) [code = [id number]] Future Scheduled [address] [facility] 00:00:00 virus screening [facility] (procedure) [code = [id number]] Future Scheduled [address] [facility] 00:00:00 virus screening [facility] (procedure) [code = [id number]] Future Scheduled [address] Human [address] [facility] 00:00:00 virus screening [facility] (procedure) [code = [id number]] Future Scheduled [address] Human [facility] 00:00:00 virus screening [facility] (procedure) [code = [id number]] Future Scheduled [address] Human [address] [facility] 00:00:00 virus screening [facility] (procedure) [code = [id number]] Future Scheduled [address] [facility] 00:00:00 virus screening [facility] (procedure) [code = [id number]] Future Scheduled [address] [facility] 00:00:00 virus screening [facility] (procedure) [code = [id number]] Future Scheduled [address] [facility] 00:00:00 Counseling and Screening [facility] ical Center (12+) [code = Tobacco Cessation Counseling and Screening (12+)] Future Scheduled [address] [facility] 00:00:00 Counseling and Screening Med ical Center (12+) [code = Tobacco Cessation Counseling and Screening (12+)] Future Scheduled [address] [facility] 00:00:00 Counseling and Screening Med ical Center (12+) [code = Tobacco Cessation Counseling and Screening (12+)] Future Scheduled [address] [facility] 00:00:00 Counseling and Screening Med ical Center (12+) [code = Tobacco Cessation Counseling and Screening (12+)] Future Scheduled [address] [facility] 00:00:00 Counseling and Screening Med ical Center (12+) [code = Tobacco Cessation Counseling and Screening (12+)] Future Scheduled [address] [facility] 00:00:00 Counseling and Screening Med ical Center (12+) [code = Tobacco Cessation Counseling and Screening (12+)] Future Scheduled [address] [facility] 00:00:00 Counseling and Screening Med ical Center (12+) [code = Tobacco Cessation Counseling and Screening (12+)] Future Scheduled [address] [facility] 00:00:00 Counseling and Screening Med ical Center (12+) [code = Tobacco Cessation Counseling and Screening (12+)] Future Scheduled [address] [facility] 00:00:00 Counseling and Screening Med ical Center (12+) [code = Tobacco Cessation Counseling and Screening (12+)] Future Scheduled [address] [facility] 00:00:00 Counseling and Screening Med ical Center (12+) [code = Tobacco Cessation Counseling and Screening (12+)] Future Scheduled [address] [facility] 00:00:00 Counseling and Screening Med ical Center (12+) [code = Tobacco Cessation Counseling and Screening (12+)] Future Scheduled [address] [facility] 00:00:00 Counseling and Screening Med ical Center (12+) [code = Tobacco Cessation Counseling and Screening (12+)] Future Scheduled [address] [facility] 00:00:00 Counseling and Screening Med ical Center (12+) [code = Tobacco Cessation Counseling and Screening (12+)] Future Scheduled [address] [facility] 00:00:00 Counseling and Screening Med ical Center (12+) [code = Tobacco Cessation Counseling and Screening (12+)] Future Scheduled [address] [facility] 00:00:00 Counseling and Screening Med ical Center (12+) [code = Tobacco Cessation Counseling and Screening (12+)] Future Scheduled [address] [facility] 00:00:00 Counseling and Screening Med ical Center (12+) [code = Tobacco Cessation Counseling and Screening (12+)] Future Scheduled [address] [facility] 00:00:00 Counseling and Screening Med ical Center (12+) [code = Tobacco Cessation Counseling and Screening (12+)] Future Scheduled [address] [facility] 00:00:00 Counseling and Screening Med ical Center (12+) [code = Tobacco Cessation Counseling and Screening (12+)] Future Scheduled [address] [facility] 00:00:00 Counseling and Screening Med ical Center (12+) [code = Tobacco Cessation Counseling and Screening (12+)] Future Scheduled [address] [facility] 00:00:00 Counseling and Screening Med ical Center (12+) [code = Tobacco Cessation Counseling and Screening (12+)] Future Scheduled [address] [facility] 00:00:00 Counseling and Screening Med ical Center (12+) [code = Tobacco Cessation Counseling and Screening (12+)] Future Scheduled [address] [facility] 00:00:00 Counseling and Screening Med ical Center (12+) [code = Tobacco Cessation Counseling and Screening (12+)] Future Scheduled [address] [facility] 00:00:00 Counseling and Screening Med ical Center (12+) [code = Tobacco Cessation Counseling and Screening (12+)] Future Scheduled [address] [facility] 00:00:00 Counseling and Screening Med ical Center (12+) [code = Tobacco Cessation Counseling and Screening (12+)] Future Scheduled [address] [facility] 00:00:00 Counseling and Screening Med ical Center (12+) [code = Tobacco Cessation Counseling and Screening (12+)] Future Scheduled [address] [facility] 00:00:00 Counseling and Screening Med ical Center (12+) [code = Tobacco Cessation Counseling and Screening (12+)] Future Scheduled [address] [facility] 00:00:00 Counseling and Screening Med ical Center (12+) [code = Tobacco Cessation Counseling and Screening (12+)] Future Scheduled [address] [facility] 00:00:00 Counseling and Screening Med ical Center (12+) [code = Tobacco Cessation Counseling and Screening (12+)] Future Scheduled [address] [facility] 00:00:00 Counseling and Screening Med ical Center (12+) [code = Tobacco Cessation Counseling and Screening (12+)] Future Scheduled [address] [facility] 00:00:00 Counseling and Screening Med ical Center (12+) [code = Tobacco Cessation Counseling and Screening (12+)] Future Scheduled [address] [facility] 00:00:00 Counseling and Screening [facility] ical Center (12+) [code = Tobacco Cessation Counseling and Screening (12+)] Future Scheduled [address] [facility] 00:00:00 Counseling and Screening [facility] ica Center (12+) [code = Tobacco Cessation Counseling and Screening (12+)] Future Scheduled [address] [facility] 00:00:00 Counseling and Screening [facility] Center (12+) [code = Tobacco Cessation Counseling and Screening (12+)] Future Scheduled 1976 DIABETIC EYE EXAM [code = [facility] 00:00:00 DIABETIC EYE EXAM] Medical C enter Future Scheduled 1976 Diabetic foot examination [facility] 00:00:00 (regime/therapy) [code = [facility] [id number]] Future Scheduled 1976 Urine screening for [facility] 00:00:00 protein (procedure) [code [facility] = [id number]] Future Scheduled 1976 DIABETIC EYE EXAM [code = [facility] 00:00:00 DIABETIC EYE EXAM] Medical C enter Future Scheduled 1976 Diabetic foot examination [facility] 00:00:00 (regime/therapy) [code = [facility] [id number]] Future Scheduled 1976 Urine screening for [facility] 00:00:00 protein (procedure) [code [facility] = [id number]] Future Scheduled 1976 DIABETIC EYE EXAM [code = [facility] 00:00:00 DIABETIC EYE EXAM] Medical C enter Future Scheduled 1976 Diabetic foot examination [facility] 00:00:00 (regime/therapy) [code = [facility] [id number]] Future Scheduled 1976 Urine screening for [facility] 00:00:00 protein (procedure) [code [facility] = [id number]] Future Scheduled 1976 DIABETIC EYE EXAM [code = [facility] 00:00:00 DIABETIC EYE EXAM] Medical C enter Future Scheduled 1976 Diabetic foot examination [facility] 00:00:00 (regime/therapy) [code = [facility] [id number]] Future Scheduled 1976 Urine screening for [facility] 00:00:00 protein (procedure) [code [facility] = [id number]] Future Scheduled 1976 DIABETIC EYE EXAM [code = [facility] 00:00:00 DIABETIC EYE EXAM] Medical C enter Future Scheduled 1976 Diabetic foot examination [facility] 00:00:00 (regime/therapy) [code = [facility] [id number]] Future Scheduled 1976 Urine screening for [facility] 00:00:00 protein (procedure) [code [facility] = [id number]] Future Scheduled 1976 DIABETIC EYE EXAM [code = [facility] 00:00:00 DIABETIC EYE EXAM] Medical C enter Future Scheduled 1976 Diabetic foot examination [facility] 00:00:00 (regime/therapy) [code = [facility] [id number]] Future Scheduled 1976 Urine screening for [facility] 00:00:00 protein (procedure) [code [facility] = [id number]] Future Scheduled 1976 DIABETIC EYE EXAM [code = [facility] 00:00:00 DIABETIC EYE EXAM] Medical C enter Future Scheduled 1976 Diabetic foot examination [facility] 00:00:00 (regime/therapy) [code = [facility] [id number]] Future Scheduled 1976 Urine screening for [facility] 00:00:00 protein (procedure) [code [facility] = [id number]] Future Scheduled 1976 DIABETIC EYE EXAM [code = [facility] 00:00:00 DIABETIC EYE EXAM] Medical C enter Future Scheduled 1976 Diabetic foot examination [facility] 00:00:00 (regime/therapy) [code = [facility] [id number]] Future Scheduled 1976 Urine screening for [facility] 00:00:00 protein (procedure) [code [facility] = [id number]] Future Scheduled 1976 DIABETIC EYE EXAM [code = [facility] 00:00:00 DIABETIC EYE EXAM] Medical C enter Future Scheduled 1976 Diabetic foot examination [facility] 00:00:00 (regime/therapy) [code = [facility] [id number]] Future Scheduled 1976 Urine screening for [facility] 00:00:00 protein (procedure) [code [facility] = [id number]] Future Scheduled 1976 DIABETIC EYE EXAM [code = [facility] 00:00:00 DIABETIC EYE EXAM] Medical C enter Future Scheduled 1976 Diabetic foot examination [facility] 00:00:00 (regime/therapy) [code = [facility] [id number]] Future Scheduled 1976 Urine screening for [facility] 00:00:00 protein (procedure) [code [facility] = [id number]] Future Scheduled 1976 DIABETIC EYE EXAM [code = [facility] 00:00:00 DIABETIC EYE EXAM] Medical C enter Future Scheduled 1976 Diabetic foot examination [facility] 00:00:00 (regime/therapy) [code = [facility] [id number]] Future Scheduled 1976 Urine screening for [facility] 00:00:00 protein (procedure) [code [facility] = [id number]] Future Scheduled 1976 DIABETIC EYE EXAM [code = [facility] 00:00:00 DIABETIC EYE EXAM] Medical C enter Future Scheduled 1976 Diabetic foot examination [facility] 00:00:00 (regime/therapy) [code = [facility] [id number]] Future Scheduled 1976 Urine screening for [facility] 00:00:00 protein (procedure) [code [facility] = [id number]] Future Scheduled 1976 DIABETIC EYE EXAM [code = [facility] 00:00:00 DIABETIC EYE EXAM] Medical C enter Future Scheduled 1976 Diabetic foot examination [facility] 00:00:00 (regime/therapy) [code = [facility] [id number]] Future Scheduled 1976 Urine screening for [facility] 00:00:00 protein (procedure) [code [facility] = [id number]] Future Scheduled 1976 DIABETIC EYE EXAM [code = [facility] 00:00:00 DIABETIC EYE EXAM] Medical C enter Future Scheduled 1976 DIABETIC EYE EXAM [code = [facility] 00:00:00 DIABETIC EYE EXAM] Medical C enter Future Scheduled 1976 Diabetic foot examination [facility] 00:00:00 (regime/therapy) [code = [facility] [id number]] Future Scheduled 1976 Urine screening for [facility] 00:00:00 protein (procedure) [code [facility] = [id number]] Future Scheduled 1976 Diabetic foot examination [facility] 00:00:00 (regime/therapy) [code = [facility] [id number]] Future Scheduled 1976 Urine screening for [facility] 00:00:00 protein (procedure) [code [facility] = [id number]] Future Scheduled 1976 DIABETIC EYE EXAM [code = [facility] 00:00:00 DIABETIC EYE EXAM] Medical C enter Future Scheduled 1976 Diabetic foot examination [facility] 00:00:00 (regime/therapy) [code = [facility] [id number]] Future Scheduled 1976 Urine screening for [facility] 00:00:00 protein (procedure) [code [facility] = [id number]] Future Scheduled 1976 DIABETIC EYE EXAM [code = [facility] 00:00:00 DIABETIC EYE EXAM] Medical C enter Future Scheduled 1976 Diabetic foot examination [facility] 00:00:00 (regime/therapy) [code = [facility] [id number]] Future Scheduled 1976 Urine screening for [facility] 00:00:00 protein (procedure) [code [facility] = [id number]] Future Scheduled 1976 DIABETIC EYE EXAM [code = [facility] 00:00:00 DIABETIC EYE EXAM] Medical C enter Future Scheduled 1976 Diabetic foot examination [facility] 00:00:00 (regime/therapy) [facility] [facility] [id number]] Future Scheduled 1976 Urine screening for [facility] 00:00:00 protein (procedure) [code [facility] = [id number]] Future Scheduled 1976 DIABETIC EYE EXAM [code = [facility] 00:00:00 DIABETIC EYE EXAM] Medical C enter Future Scheduled 1976 Diabetic foot examination [facility] 00:00:00 (regime/therapy) [code = [facility] [id number]] Future Scheduled 1976 Urine screening for [facility] 00:00:00 protein (procedure) [code [facility] = [id number]] Future Scheduled 1976 DIABETIC EYE EXAM [code = [facility] 00:00:00 DIABETIC EYE EXAM] Medical C enter Future Scheduled 1976 Diabetic foot examination [facility] 00:00:00 (regime/therapy) [code = [facility] [id number]] Future Scheduled 1976 Urine screening for [facility] 00:00:00 protein (procedure) [code [facility] = [id number]] Future Scheduled 1976 DIABETIC EYE EXAM [code = [facility] 00:00:00 DIABETIC EYE EXAM] Medical C enter Future Scheduled 1976 Diabetic foot examination [facility] 00:00:00 (regime/therapy) [code = [facility] [id number]] Future Scheduled 1976 Urine screening for [facility] 00:00:00 protein (procedure) [code [facility] = [id number]] Future Scheduled 1976 DIABETIC EYE EXAM [code = [facility] 00:00:00 DIABETIC EYE EXAM] Medical C enter Future Scheduled 1976 Diabetic foot examination [facility] 00:00:00 (regime/therapy) [code = [facility] [id number]] Future Scheduled 1976 Urine screening for [facility] 00:00:00 protein (procedure) [code [facility] = [id number]] Future Scheduled 1976 DIABETIC EYE EXAM [code = [facility] 00:00:00 DIABETIC EYE EXAM] Medical C enter Future Scheduled 1976 Diabetic foot examination [facility] 00:00:00 (regime/therapy) [code = [facility] [id number]] Future Scheduled 1976 Urine screening for [facility] 00:00:00 protein (procedure) [code [facility] = [id number]] Future Scheduled 1976 DIABETIC EYE EXAM [code = [facility] 00:00:00 DIABETIC EYE EXAM] Medical C enter Future Scheduled 1976 Diabetic foot examination [facility] 00:00:00 (regime/therapy) [code = [facility] [id number]] Future Scheduled 1976 Urine screening for [facility] 00:00:00 protein (procedure) [code [facility] = [id number]] Future Scheduled 1976 DIABETIC EYE EXAM [code = [facility] 00:00:00 DIABETIC EYE EXAM] Medical C enter Future Scheduled 1976 Diabetic foot examination [facility] 00:00:00 (regime/therapy) [code = [facility] [id number]] Future Scheduled 1976 Urine screening for [facility] 00:00:00 protein (procedure) [code [facility] = [id number]] Future Scheduled 1976 DIABETIC EYE EXAM [code = [facility] 00:00:00 DIABETIC EYE EXAM] Medical C enter Future Scheduled 1976 Diabetic foot examination [facility] 00:00:00 (regime/therapy) [code = [facility] [id number]] Future Scheduled 1976 Urine screening for [facility] 00:00:00 protein (procedure) [code [facility] = [id number]] Future Scheduled 1976 DIABETIC EYE EXAM [code = [facility] 00:00:00 DIABETIC EYE EXAM] Medical C enter Future Scheduled 1976 Diabetic foot examination [facility] 00:00:00 (regime/therapy) [code = [facility] [id number]] Future Scheduled 1976 Urine screening for [facility] 00:00:00 protein (procedure) [code [facility] = [id number]] Future Scheduled 1976 DIABETIC EYE EXAM [code = [facility] 00:00:00 DIABETIC EYE EXAM] Medical C enter Future Scheduled 1976 Diabetic foot examination [facility] 00:00:00 (regime/therapy) [code = [facility] [id number]] Future Scheduled 1976 Urine screening for [facility] 00:00:00 protein (procedure) [code [facility] = [id number]] Future Scheduled 1976 DIABETIC EYE EXAM [code = [facility] 00:00:00 DIABETIC EYE EXAM] Medical C enter Future Scheduled 1976 Diabetic foot examination [facility] 00:00:00 (regime/therapy) [code = [facility] [id number]] Future Scheduled 1976 Urine screening for [facility] 00:00:00 protein (procedure) [code [facility] = [id number]] Future Scheduled 1976 DIABETIC EYE EXAM [code = [facility] 00:00:00 DIABETIC EYE EXAM] Medical C enter Future Scheduled 1976 Diabetic foot examination [facility] 00:00:00 (regime/therapy) [code = [facility] [id number]] Future Scheduled 1976 Urine screening for [facility] 00:00:00 protein (procedure) [code [facility] = [id number]] Future Scheduled 1976 DIABETIC EYE EXAM [code = [facility] 00:00:00 DIABETIC EYE EXAM] Medical C enter Future Scheduled 1976 Diabetic foot examination [facility] 00:00:00 (regime/therapy) [code = [facility] [id number]] Future Scheduled 1976 Urine screening for [facility] 00:00:00 protein (procedure) [code [facility] = [id number]] Future Scheduled 1976 DIABETIC EYE EXAM [code = [facility] 00:00:00 DIABETIC EYE EXAM] Medical C enter Future Scheduled 1976 Diabetic foot examination [facility] 00:00:00 (regime/therapy) [code = [facility] [id number]] Future Scheduled 1976 Urine screening for [facility] 00:00:00 protein (procedure) [code [facility] = [id number]] Future Scheduled 1976 DIABETIC EYE EXAM [code = [facility] 00:00:00 DIABETIC EYE EXAM] Medical C enter Future Scheduled 1976 Diabetic foot examination [facility] 00:00:00 (regime/therapy) [code = [facility] [id number]] Future Scheduled 1976 Urine screening for [facility] 00:00:00 protein (procedure) [code [facility] = [id number]] Future Scheduled 1967-05-19 COVID-19 VACCINE (#1) [facility] [code = COVID-19 VACCINE [facility] (#1)] Future Scheduled 1967-05-19 COVID-19 VACCINE (#1) [facility] 00:00:00 [code = COVID-19 VACCINE [facility] (#1)] Future Scheduled 1967-05-19 COVID-19 VACCINE (#1) [facility] 00:00:00 [code = COVID-19 VACCINE [facility] (#1)] Future Scheduled 1967-05-19 COVID-19 VACCINE (#1) [facility] 00:00:00 [code = COVID-19 VACCINE [facility] (#1)] Future Scheduled 1967-05-19 COVID-19 VACCINE (#1) [facility] 00:00:00 [code = COVID-19 VACCINE [facility] (#1)] Future Scheduled 1967-05-19 COVID-19 VACCINE (#1) [facility] 00:00:00 [code = COVID-19 VACCINE [facility] (#1)] Future Scheduled 1967-05-19 COVID-19 VACCINE (#1) [facility] 00:00:00 [code = COVID-19 VACCINE [facility] (#1)] Future Scheduled 1967-05-19 COVID-19 VACCINE (#1) [facility] 00:00:00 [code = COVID-19 VACCINE [facility] (#1)] Future Scheduled 1967-05-19 COVID-19 VACCINE (#1) [facility] 00:00:00 [code = COVID-19 VACCINE [facility] (#1)] Future Scheduled 1967-05-19 COVID-19 VACCINE (#1) [facility] 00:00:00 [code = COVID-19 VACCINE [facility] (#1)] Future Scheduled 1967-05-19 COVID-19 VACCINE (#1) [facility] 00:00:00 [code = COVID-19 VACCINE [facility] (#1)] Future Scheduled 1967-05-19 COVID-19 VACCINE (#1) [facility] 00:00:00 [code = COVID-19 VACCINE [facility] (#1)] Future Scheduled 1967-05-19 COVID-19 VACCINE (#1) [facility] 00:00:00 [code = COVID-19 VACCINE [facility] (#1)] Future Scheduled 1967-05-19 COVID-19 VACCINE (#1) [facility] 00:00:00 [code = COVID-19 VACCINE [facility] (#1)] Future Scheduled 1967-05-19 COVID-19 VACCINE (#1) [facility] 00:00:00 [code = COVID-19 VACCINE [facility] (#1)] Future Scheduled 1967-05-19 COVID-19 VACCINE (#1) [facility] 00:00:00 [code = COVID-19 VACCINE [facility] (#1)] Future Scheduled 1967-05-19 COVID-19 VACCINE (#1) [facility] 00:00:00 [code = COVID-19 VACCINE [facility] (#1)] Future Scheduled 1967-05-19 COVID-19 VACCINE (#1) [facility] 00:00:00 [code = COVID-19 VACCINE [facility] (#1)] Future Scheduled 1967-05-19 COVID-19 VACCINE (#1) [facility] 00:00:00 [code = COVID-19 VACCINE [facility] (#1)] Future Scheduled 1967-05-19 COVID-19 VACCINE (#1) [facility] 00:00:00 [code = COVID-19 VACCINE [facility] (#1)] Future Scheduled 1967-05-19 COVID-19 VACCINE (#1) [facility] 00:00:00 [code = COVID-19 VACCINE [facility] (#1)] Future Scheduled 1967-05-19 COVID-19 VACCINE (#1) [facility] 00:00:00 [code = COVID-19 VACCINE [facility] (#1)] Future Scheduled 1967-05-19 COVID-19 VACCINE (#1) [facility] 00:00:00 [code = COVID-19 VACCINE [facility] (#1)] Future Scheduled 1967-05-19 COVID-19 VACCINE (#1) [facility] 00:00:00 [code = COVID-19 VACCINE [facility] (#1)] Future Scheduled 1967-05-19 COVID-19 VACCINE (#1) [facility] 00:00:00 [code = COVID-19 VACCINE [facility] (#1)] Future Scheduled 1967-05-19 COVID-19 VACCINE (#1) [facility] 00:00:00 [code = COVID-19 VACCINE [facility] (#1)] Future Scheduled 1967-05-19 COVID-19 VACCINE (#1) [facility] 00:00:00 [code = COVID-19 VACCINE [facility] (#1)] Future Scheduled 1967-05-19 COVID-19 VACCINE (#1) [facility] 00:00:00 [code = COVID-19 VACCINE [facility] (#1)] Future Scheduled 1967-05-19 COVID-19 VACCINE (#1) [facility] 00:00:00 [code = COVID-19 VACCINE [facility] (#1)] Future Scheduled 1967-05-19 COVID-19 VACCINE (#1) [facility] 00:00:00 [code = COVID-19 VACCINE [facility] (#1)] Future Scheduled 1967-05-19 COVID-19 VACCINE (#1) [facility] 00:00:00 [code = COVID-19 VACCINE [facility] (#1)] Future Scheduled 1967-05-19 COVID-19 VACCINE (#1) [facility] 00:00:00 [code = COVID-19 VACCINE [facility] (#1)] Future Scheduled 1967-05-19 COVID-19 VACCINE (#1) [facility] 00:00:00 [code = COVID-19 VACCINE [facility] (#1)] Future Scheduled 1966 CT Colonography (combo) [facility] 00:00:00 [code = [facility] ([facility])] Future Scheduled 1966 Screening for malignant [facility] 00:00:00 neoplasm of colon Medical Ce [facility]ter (procedure) [code = 777500625] Future Scheduled 1966 Screening for malignant [facility] 00:00:00 neoplasm of colon Medical Ce [facility]ter (procedure) [code = 562884385] Future Scheduled 1966 Screening for malignant [facility] 00:00:00 neoplasm of colon Medical Ce [facility]ter (procedure) [code = 706193181] Future Scheduled 1966 Screening for malignant [facility] 00:00:00 neoplasm of colon Medical Ce [facility]ter (procedure) [code = 258864372] Future Scheduled 1966 Sigmoidoscopy [code = [facility] S[facility]oscopy] [facility] Cent[facility] Future Scheduled 1966 CT Colonography (combo) [facility] 00:00:00 [code = CT Colonography [facility] (combo)] Future Scheduled 1966 Screening for malignant [facility] 00:00:00 neoplasm of colon Medical Ce [facility]ter (procedure) [code = 795649211] Future Scheduled 1966 Screening for malignant [facility] 00:00:00 neoplasm of colon Medical Ce [facility]ter (procedure) [code = 730236971] Future Scheduled 1966 Screening for malignant [facility] 00:00:00 neoplasm of colon Medical Ce [facility]ter (procedure) [code = 355805004] Future Scheduled 1966 Screening for malignant [facility] 00:00:00 neoplasm of colon Medical Ce [facility]ter (procedure) [code = 060180686] Future Scheduled 1966 Sigmoidoscopy [code = [facility] 00:00:[facility] Sigmoidoscopy] [facility] Cent[facility] Future Scheduled 1966 CT Colonography (combo) [facility] 00:00:00 [code = CT Colonography [facility] (combo)] Future Scheduled 1966 Screening for malignant [facility] 00:00:00 neoplasm of colon Medical Ce [facility]ter (procedure) [code = 043592739] Future Scheduled 1966 Screening for malignant [facility] 00:00:00 neoplasm of colon Medical Ce [facility]ter (procedure) [code = 653097495] Future Scheduled 1966 Screening for malignant [facility] 00:00:00 neoplasm of colon Medical Ce [facility] (procedure) [code = 595977967] Future Scheduled 1966 Screening for malignant [facility] 00:00:00 neoplasm of colon Medical Ce [facility]ter (procedure) [code = 303027723] Future Scheduled 1966 Sigmoidoscopy [code = [facility] 00:00:[facility] Sigmoidoscopy] [facility] Cent[facility] Future Scheduled 1966 CT Colonography (combo) [facility] 00:00:00 [code = [facility] ([facility])] Future Scheduled 1966 Screening for malignant [facility] 00:00:00 neoplasm of colon Medical Ce [facility]ter (procedure) [code = 965286572] Future Scheduled 1966 Screening for malignant [facility] 00:00:00 neoplasm of colon Medical Ce [facility]ter (procedure) [code = 966268157] Future Scheduled 1966 Screening for malignant [facility] 00:00:00 neoplasm of colon Medical Ce [facility] (procedure) [code = 110263130] Future Scheduled 1966 Screening for malignant [facility] 00:00:00 neoplasm of colon Medical Ce [facility]ter (procedure) [code = 253999391] Future Scheduled 1966 Sigmoidoscopy [code = [facility] 00:[facility] Sigmoidoscopy] [facility] Cent[facility] Future Scheduled 1966 CT Colonography (combo) [facility] 00:00:00 [code = CT [facility] ([facility])] Future Scheduled 1966 Screening for malignant [facility] 00:00:00 neoplasm of colon Medical Ce [facility]ter (procedure) [code = 898005611] Future Scheduled 1966 Screening for malignant [facility] 00:00:00 neoplasm of colon Medical Ce [facility] (procedure) [code = 393994296] Future Scheduled 1966 Screening for malignant [facility] 00:00:00 neoplasm of colon Medical Ce [facility]ter (procedure) [code = 187305042] Future Scheduled 1966 Screening for malignant [facility] 00:00:00 neoplasm of colon Medical Ce [facility]ter (procedure) [code = 337284644] Future Scheduled 1966 Sigmoidoscopy [code = [facility] 00:[facility] Sigmoidoscopy] [facility] Cent[facility] Future Scheduled 1966 CT Colonography (combo) [facility] 00:00:00 [code = CT Colonography [facility] (combo)] Future Scheduled 1966 Screening for malignant [facility] 00:00:00 neoplasm of colon Medical Ce [facility]ter (procedure) [code = 954405012] Future Scheduled 1966 Screening for malignant [facility] 00:00:00 neoplasm of colon Medical Ce [facility]ter (procedure) [code = 656484820] Future Scheduled 1966 Screening for malignant [facility] 00:00:00 neoplasm of colon Medical Ce [facility]ter (procedure) [code = 512965664] Future Scheduled 1966 Screening for malignant [facility] 00:00:00 neoplasm of colon Medical Ce [facility]ter (procedure) [code = 272464687] Future Scheduled 1966 Sigmoidoscopy [code = [facility] 00:[facility] Sigmoidoscopy] [facility] Cent[facility] Future Scheduled 1966 CT Colonography (combo) [facility] 00:00:00 [code = CT Colonography [facility] (combo)] Future Scheduled 1966 Screening for malignant [facility] 00:00:00 neoplasm of colon Medical Ce nter (procedure) [code = 570394803] Future Scheduled 1966 Screening for malignant [facility] 00:00:00 neoplasm of colon Medical Ce nter (procedure) [code = 207243014] Future Scheduled 1966 Screening for malignant [facility] 00:00:00 neoplasm of colon Medical Ce [facility]ter (procedure) [code = 699154810] Future Scheduled 1966 Screening for malignant [facility] 00:00:00 neoplasm of colon Medical Ce [facility]ter (procedure) [code = 533118759] Future Scheduled 1966 Sigmoidoscopy [code = [facility] 00:[facility] Sigmoidoscopy] Medical Enri[facility] r Future Scheduled 1966 CT Colonography (combo) [facility] 00:00:00 [code = [facility] ([facility])] Future Scheduled 1966 Screening for malignant [facility] 00:00:00 neoplasm of colon Medical Ce [facility]ter (procedure) [code = 617353800] Future Scheduled 1966 Screening for malignant [facility] 00:00:00 neoplasm of colon Medical Ce [facility]ter (procedure) [code = 675559664] Future Scheduled 1966 Screening for malignant [facility] 00:00:00 neoplasm of colon Medical Ce [facility]ter (procedure) [code = 695557386] Future Scheduled 1966 Screening for malignant [facility] 00:00:00 neoplasm of colon Medical Ce [facility]ter (procedure) [code = 105657142] Future Scheduled 1966 Sigmoidoscopy [code = [facility] 00:[facility] Sigmoidoscopy] [facility] En[facility] Future Scheduled 1966 CT Colonography (combo) [facility] 00:00:00 [code = CT Colonography [facility] (combo)] Future Scheduled 1966 Screening for malignant [facility] 00:00:00 neoplasm of colon Medical Ce [facility]ter (procedure) [code = 646075521] Future Scheduled 1966 Screening for malignant [facility] 00:00:00 neoplasm of colon Medical Ce [facility]ter (procedure) [code = 112819479] Future Scheduled 1966 Screening for malignant [facility] 00:00:00 neoplasm of colon Medical Ce [facility]ter (procedure) [code = 957352036] Future Scheduled 1966 Screening for malignant [facility] 00:00:00 neoplasm of colon Medical Ce [facility]ter (procedure) [code = 752473445] Future Scheduled 1966 Sigmoidoscopy [code = [facility] 00:[facility] S[facility]oidoscopy] [facility] Enri[facility] Future Scheduled 1966 CT Colonography (combo) [facility] 00:00:00 [code = CT Colonography [facility] (combo)] Future Scheduled 1966 Screening for malignant [facility] 00:00:00 neoplasm of colon Medical Ce [facility]ter (procedure) [code = 981511756] Future Scheduled 1966 Screening for malignant [facility] 00:00:00 neoplasm of colon Medical Ce [facility]ter (procedure) [code = 783697346] Future Scheduled 1966 Screening for malignant [facility] 00:00:00 neoplasm of colon Medical Ce [facility]ter (procedure) [code = 632062875] Future Scheduled 1966 Screening for malignant [facility] 00:00:00 neoplasm of colon Medical Ce [facility]ter (procedure) [code = 847047960] Future Scheduled 1966 Sigmoidoscopy [code = [facility] 00:[facility] S[facility]oidoscopy] [facility] Cent[facility] Future Scheduled 1966 CT Colonography (combo) [facility] 00:00:00 [code = CT Colonography [facility] (combo)] Future Scheduled 1966 Screening for malignant [facility] 00:00:00 neoplasm of colon Medical Ce [facility]ter (procedure) [code = 726594370] Future Scheduled 1966 Screening for malignant [facility] 00:00:00 neoplasm of colon Medical Ce [facility]ter (procedure) [code = 390918999] Future Scheduled 1966 Screening for malignant [facility] 00:00:00 neoplasm of colon Medical Ce [facility]ter (procedure) [code = 756905321] Future Scheduled 1966 Screening for malignant [facility] 00:00:00 neoplasm of colon Medical Ce [facility]ter (procedure) [code = 576592654] Future Scheduled 1966 Sigmoidoscopy [code = [facility] 00:[facility] Sigmoidoscopy] [facility] Future Scheduled 1966 CT Colonography (combo) [facility] 00:00:00 [code = [facility] ([facility])] Future Scheduled 1966 Screening for malignant [facility] 00:00:00 neoplasm of colon Medical Ce [facility]ter (procedure) [code = 823873565] Future Scheduled 1966 Screening for malignant [facility] 00:00:00 neoplasm of colon Medical Ce [facility]ter (procedure) [code = 688499024] Future Scheduled 1966 Screening for malignant [facility] 00:00:00 neoplasm of colon Medical Ce [facility]ter (procedure) [code = 534515588] Future Scheduled 1966 Screening for malignant [facility] 00:00:00 neoplasm of colon Medical Ce [facility]ter (procedure) [code = 984695592] Future Scheduled 1966 Sigmoidoscopy [code = [facility] 00:[facility] S[facility]oidoscopy] [facility] Cent[facility] Future Scheduled 1966 CT Colonography (combo) [facility] 00:00:00 [code = CT Colonography [facility] (combo)] Future Scheduled 1966 CT Colonography (combo) [facility] 00:00:00 [code = CT Colonography [facility] (combo)] Future Scheduled 1966 Screening for malignant [facility] 00:00:00 neoplasm of colon Medical Ce [facility]ter (procedure) [code = 655375021] Future Scheduled 1966 Screening for malignant [facility] 00:00:00 neoplasm of colon Medical Ce [facility]ter (procedure) [code = 673661472] Future Scheduled 1966 Screening for malignant [facility] 00:00:00 neoplasm of colon Medical Ce [facility]ter (procedure) [code = 288061016] Future Scheduled 1966 Screening for malignant [facility] 00:00:00 neoplasm of colon Medical Ce [facility]ter (procedure) [code = 773469335] Future Scheduled 1966 Sigmoidoscopy [code = [facility] 00:[facility] S[facility]oidoscopy] [facility] Cent[facility] Future Scheduled 1966 Screening for malignant [facility] 00:00:00 neoplasm of colon Medical Ce [facility]ter (procedure) [code = 666624270] Future Scheduled 1966 Screening for malignant [facility] 00:00:00 neoplasm of colon Medical Ce [facility]ter (procedure) [code = 213108365] Future Scheduled 1966 Screening for malignant [facility] 00:00:00 neoplasm of colon Medical Ce nter (procedure) [code = 596173886] Future Scheduled 1966 Screening for malignant [facility] 00:00:00 neoplasm of colon Medical Ce [facility]ter (procedure) [code = 532169283] Future Scheduled 1966 Sigmoidoscopy [code = [facility] 00:[facility] S[facility]oidoscopy] [facility] Cent[facility] Future Scheduled 1966 CT Colonography (combo) [facility] 00:00:00 [code = CT Colonography [facility] (combo)] Future Scheduled 1966 Screening for malignant [facility] 00:00:00 neoplasm of colon Medical Ce nter (procedure) [code = 310332382] Future Scheduled 1966 Screening for malignant [facility] 00:00:00 neoplasm of colon Medical Ce [facility]ter (procedure) [code = 260226991] Future Scheduled 1966 Screening for malignant [facility] 00:00:00 neoplasm of colon Medical Ce nter (procedure) [code = 134089750] Future Scheduled 1966 Screening for malignant [facility] 00:00:00 neoplasm of colon Medical Ce nter (procedure) [code = 866163604] Future Scheduled 1966 Sigmoidoscopy [code = [facility] 00:[facility] S[facility]oidoscopy] Medical Enri[facility] r Future Scheduled 1966 CT Colonography (combo) [facility] 00:00:00 [code = CT Colonography [facility] (combo)] Future Scheduled 1966 Screening for malignant [facility] 00:00:00 neoplasm of colon Medical Ce nter (procedure) [code = 905151877] Future Scheduled 1966 Screening for malignant [facility] 00:00:00 neoplasm of colon Medical Ce [facility]ter (procedure) [code = 661309311] Future Scheduled 1966 Screening for malignant [facility] 00:00:00 neoplasm of colon Medical Ce [facility]ter (procedure) [code = 205074518] Future Scheduled 1966 Screening for malignant [facility] 00:00:00 neoplasm of colon Medical Ce [facility]ter (procedure) [code = 926958144] Future Scheduled 1966 Sigmoidoscopy [code = [facility] 00:[facility] S[facility]oidoscopy] [facility] Future Scheduled 1966 CT Colonography (combo) [facility] 00:00:00 [code = CT Colonography [facility] (combo)] Future Scheduled 1966 Screening for malignant [facility] 00:00:00 neoplasm of colon Medical Ce [facility]ter (procedure) [code = 059412682] Future Scheduled 1966 Screening for malignant [facility] 00:00:00 neoplasm of colon Medical Ce [facility]ter (procedure) [code = 817301372] Future Scheduled 1966 Screening for malignant [facility] 00:00:00 neoplasm of colon Medical Ce [facility]ter (procedure) [code = 467255521] Future Scheduled 1966 Screening for malignant [facility] 00:00:00 neoplasm of colon Medical Ce [facility]ter (procedure) [code = 151392444] Future Scheduled 1966 Sigmoidoscopy [code = [facility] 00:[facility] S[facility]oidoscopy] [facility] Future Scheduled 1966 CT Colonography (combo) [facility] 00:00:00 [code = CT Colonography [facility] (combo)] Future Scheduled 1966 Screening for malignant [facility] 00:00:00 neoplasm of colon Medical Ce [facility]ter (procedure) [code = 405337279] Future Scheduled 1966 Screening for malignant [facility] 00:00:00 neoplasm of colon Medical Ce [facility]ter (procedure) [code = 538472663] Future Scheduled 1966 Screening for malignant [facility] 00:00:00 neoplasm of colon Medical Ce nter (procedure) [code = 046075532] Future Scheduled 1966 Screening for malignant [facility] 00:00:00 neoplasm of colon Medical Ce nter (procedure) [code = 609709048] Future Scheduled 1966 Sigmoidoscopy [code = [facility]] Medical Cente [facility] Future Scheduled 1966 CT Colonography (combo) [facility] 00:00:00 [code = CT Colonography [facility] (combo)] Future Scheduled 1966 Screening for malignant [facility] 00:00:00 neoplasm of colon Medical Ce nter (procedure) [code = 480428945] Future Scheduled 1966 Screening for malignant [facility] 00:00:00 neoplasm of colon Medical Ce nter (procedure) [code = 588608748] Future Scheduled 1966 Screening for malignant [facility] 00:00:00 neoplasm of colon Medical Ce nter (procedure) [code = 708614845] Future Scheduled 1966 Screening for malignant [facility] 00:00:00 neoplasm of colon Medical Ce nter (procedure) [code = 799413715] Future Scheduled 1966 Sigmoidoscopy [code = [facility] S[facility]oidoscopy] Medical Cente r Future Scheduled 1966 CT Colonography (combo) [facility] 00:00:00 [code = CT Colonography [facility] ([facility])] Future Scheduled 1966 Screening for malignant [facility] 00:00:00 neoplasm of colon Medical Ce nter (procedure) [code = 430938248] Future Scheduled 1966 Screening for malignant [facility] 00:00:00 neoplasm of colon Medical Ce nter (procedure) [code = 900578649] Future Scheduled 1966 Screening for malignant [facility] 00:00:00 neoplasm of colon Medical Ce nter (procedure) [code = 702986664] Future Scheduled 1966 Screening for malignant [facility] 00:00:00 neoplasm of colon Medical Ce nter (procedure) [code = 930832490] Future Scheduled 1966 Sigmoidoscopy [code = [facility] 00:[facility] S[facility]oscopy] Medical Cente r Future Scheduled 1966 CT Colonography (combo) [facility] 00:00:00 [code = [facility] Future Scheduled 1966 Screening for malignant [facility] 00:00:00 neoplasm of colon Medical Ce nter (procedure) [code = 081708835] Future Scheduled 1966 Screening for malignant [facility] 00:00:00 neoplasm of colon Medical Ce nter (procedure) [code = 653925548] Future Scheduled 1966 Screening for malignant [facility] 00:00:00 neoplasm of colon Medical Ce nter (procedure) [code = 829058790] Future Scheduled 1966 Screening for malignant [facility] 00:00:00 neoplasm of colon Medical Ce nter (procedure) [code = 873802403] Future Scheduled 1966 Sigmoidoscopy [code = [facility] S[facility]oscopy] Medical Cente r Future Scheduled 1966 CT Colonography (combo) [facility] 00:00:00 [code = CT Colonography [facility] (combo)] Future Scheduled 1966 Screening for malignant [facility] 00:00:00 neoplasm of colon Medical Ce nter (procedure) [code = 633020824] Future Scheduled 1966 Screening for malignant [facility] 00:00:00 neoplasm of colon Medical Ce nter (procedure) [code = 946003420] Future Scheduled 1966 Screening for malignant [facility] 00:00:00 neoplasm of colon Medical Ce nter (procedure) [code = 880832191] Future Scheduled 1966 Screening for malignant [facility] 00:00:00 neoplasm of colon Medical Ce nter (procedure) [code = 067354111] Future Scheduled 1966 Sigmoidoscopy [code = [facility] 00:[facility] S[facility]oidoscopy] Medical Cente r Future Scheduled 1966 CT Colonography (combo) [facility] 00:00:00 [code = CT Colonography [facility] (combo)] Future Scheduled 1966 Screening for malignant [facility] 00:00:00 neoplasm of colon Medical Ce nter (procedure) [code = 046221518] Future Scheduled 1966 Screening for malignant [facility] 00:00:00 neoplasm of colon Medical Ce nter (procedure) [code = 881096914] Future Scheduled 1966 Screening for malignant [facility] 00:00:00 neoplasm of colon Medical Ce nter (procedure) [code = 298901075] Future Scheduled 1966 Screening for malignant [facility] 00:00:00 neoplasm of colon Medical Ce nter (procedure) [code = 477777094] Future Scheduled 1966 Sigmoidoscopy [code = [facility] 00:[facility] S[facility]oidoscopy] Medical Cente r Future Scheduled 1966 CT Colonography (combo) [facility] 00:00:00 [code = CT Colonography [facility] (combo)] Future Scheduled 1966 Screening for malignant [facility] 00:00:00 neoplasm of colon Medical Ce nter (procedure) [code = 605908477] Future Scheduled 1966 Screening for malignant [facility] 00:00:00 neoplasm of colon Medical Ce nter (procedure) [code = 231395845] Future Scheduled 1966 Screening for malignant [facility] 00:00:00 neoplasm of colon Medical Ce nter (procedure) [code = 872393290] Future Scheduled 1966 Screening for malignant [facility] 00:00:00 neoplasm of colon Medical Ce nter (procedure) [code = 822872591] Future Scheduled 1966 Sigmoidoscopy [code = [facility] 00:[facility] S[facility]oidoscopy] Medical Enrikee r Future Scheduled 1966 CT Colonography (combo) [facility] 00:00:00 [code = CT Colonography [facility] (combo)] Future Scheduled 1966 Screening for malignant [facility] 00:00:00 neoplasm of colon Medical Ce nter (procedure) [code = 986735851] Future Scheduled 1966 Screening for malignant [facility] 00:00:00 neoplasm of colon Medical Ce nter (procedure) [code = 740499825] Future Scheduled 1966 Screening for malignant [facility] 00:00:00 neoplasm of colon Medical Ce nter (procedure) [code = 084034177] Future Scheduled 1966 Screening for malignant [facility] 00:00:00 neoplasm of colon Medical Ce nter (procedure) [code = 196355886] Future Scheduled 1966 Sigmoidoscopy [code = [facility] 00:[facility] S[facility]oidoscopy] Medical Cente r Future Scheduled 1966 CT Colonography (combo) [facility] 00:00:00 [code = CT Colonography [facility] (combo)] Future Scheduled 1966 Screening for malignant [facility] 00:00:00 neoplasm of colon Medical Ce nter (procedure) [code = 539687105] Future Scheduled 1966 Screening for malignant [facility] 00:00:00 neoplasm of colon Medical Ce nter (procedure) [code = 804411087] Future Scheduled 1966 Screening for malignant [facility] 00:00:00 neoplasm of colon Medical Ce nter (procedure) [code = 323484354] Future Scheduled 1966 Screening for malignant [facility] 00:00:00 neoplasm of colon Medical Ce nter (procedure) [code = 882981131] Future Scheduled 1966 Sigmoidoscopy [code = [facility] 00:[facility] S[facility]oidoscopy] Medical Cente r Future Scheduled 1966 CT Colonography (combo) [facility] 00:00:00 [code = CT Colonography [facility] (combo)] Future Scheduled 1966 Screening for malignant [facility] 00:00:00 neoplasm of colon Medical Ce nter (procedure) [code = 649526867] Future Scheduled 1966 Screening for malignant [facility] 00:00:00 neoplasm of colon Medical Ce nter (procedure) [code = 131714236] Future Scheduled 1966 Screening for malignant [facility] 00:00:00 neoplasm of colon Medical Ce nter (procedure) [code = 596264196] Future Scheduled 1966 Screening for malignant [facility] 00:00:00 neoplasm of colon Medical Ce nter (procedure) [code = 963557521] Future Scheduled 1966 Sigmoidoscopy [code = [facility] 00:[facility] S[facility]oidoscopy] Medical Cente r Future Scheduled 1966 CT Colonography (combo) [facility] 00:00:00 [code = CT Colonography [facility] (combo)] Future Scheduled 1966 Screening for malignant [facility] 00:00:00 neoplasm of colon Medical Ce nter (procedure) [code = 612952707] Future Scheduled 1966 Screening for malignant [facility] 00:00:00 neoplasm of colon Medical Ce nter (procedure) [code = 560839861] Future Scheduled 1966 Screening for malignant [facility] 00:00:00 neoplasm of colon Medical Ce nter (procedure) [code = 235521051] Future Scheduled 1966 Screening for malignant [facility] 00:00:00 neoplasm of colon Medical Ce nter (procedure) [code = 632072991] Future Scheduled 1966 Sigmoidoscopy [code = [facility] 00:[facility] S[facility]oidoscopy] Medical Cente r Future Scheduled 1966 CT Colonography (combo) [facility] 00:00:00 [code = [facility])] Future Scheduled 1966 Screening for malignant [facility] 00:00:00 neoplasm of colon Medical Ce nter (procedure) [code = 186570610] Future Scheduled 1966 Screening for malignant [facility] 00:00:00 neoplasm of colon Medical Ce nter (procedure) [code = 447514673] Future Scheduled 1966 Screening for malignant [facility] 00:00:00 neoplasm of colon Medical Ce nter (procedure) [code = 361373323] Future Scheduled 1966 Screening for malignant [facility] 00:00:00 neoplasm of colon Medical Ce nter (procedure) [code = 920518269] Future Scheduled 1966 Sigmoidoscopy [code = [facility] 00:[facility] S[facility]oidoscopy] Medical Cente r Future Scheduled 1966 CT Colonography (combo) [facility] 00:00:00 [code = CT [facility])] Future Scheduled 1966 Screening for malignant [facility] 00:00:00 neoplasm of colon Medical Ce nter (procedure) [code = 779815398] Future Scheduled 1966 Screening for malignant [facility] 00:00:00 neoplasm of colon Medical Ce nter (procedure) [code = 355052429] Future Scheduled 1966 Screening for malignant [facility] 00:00:00 neoplasm of colon Medical Ce nter (procedure) [code = 018684984] Future Scheduled 1966 Screening for malignant [facility] 00:00:00 neoplasm of colon Medical Ce nter (procedure) [code = 156273653] Future Scheduled 1966 Sigmoidoscopy [code = [facility] 00:[facility] S[facility]oidoscopy] Medical Cente r Future Scheduled 1966 CT Colonography (combo) [facility] 00:00:00 [code = CT Colonography [facility] (combo)] Future Scheduled 1966 Screening for malignant [facility] 00:00:00 neoplasm of colon Medical Ce nter (procedure) [code = 829324113] Future Scheduled 1966 Screening for malignant [facility] 00:00:00 neoplasm of colon Medical Ce nter (procedure) [code = 547889409] Future Scheduled 1966 Screening for malignant [facility] 00:00:00 neoplasm of colon Medical Ce nter (procedure) [code = 912471555] Future Scheduled 1966 Screening for malignant [facility] 00:00:00 neoplasm of colon Medical Ce nter (procedure) [code = 053158207] Future Scheduled 1966 Sigmoidoscopy [code = [facility] 00:[facility] S[facility]oidoscopy] Medical Cente r Future Scheduled 1966 CT Colonography (combo) [facility] 00:00:00 [code = CT Colonography [facility] (combo)] Future Scheduled 1966 Screening for malignant [facility] 00:00:00 neoplasm of colon Medical Ce nter (procedure) [code = 564892822] Future Scheduled 1966 Screening for malignant [facility] 00:00:00 neoplasm of colon Medical Ce nter (procedure) [code = 198792221] Future Scheduled 1966 Screening for malignant [facility] 00:00:00 neoplasm of colon Medical Ce nter (procedure) [code = 154080371] Future Scheduled 1966 Screening for malignant [facility] 00:00:00 neoplasm of colon Medical Ce nter (procedure) [code = 422700473] Future Scheduled 1966 Sigmoidoscopy [code = [facility] 00:[facility] Sigmoidoscopy] Medical Enrikee r Future Scheduled 1966 CT Colonography (combo) [facility] 00:00:00 [code = CT Colonography [facility] (combo)] Future Scheduled 1966 Screening for malignant [facility] 00:00:00 neoplasm of colon Medical Ce nter (procedure) [code = 684256711] Future Scheduled 1966 Screening for malignant [facility] 00:00:00 neoplasm of colon Medical Ce nter (procedure) [code = 234265330] Future Scheduled 1966 Screening for malignant [facility] 00:00:00 neoplasm of colon Medical Ce nter (procedure) [code = 325408906] Future Scheduled 1966 Screening for malignant [facility] 00:00:00 neoplasm of colon Medical Ce nter (procedure) [code = 717785294] Future Scheduled 1966 Sigmoidoscopy [code = [facility] S[facility]oscopy] Medical Cente r Encounters Start End Encounter Admission Attending Care Care Encounter Source Date/Time Date/Time Type Type Clinicians Facility Department ID 2022-11-09 Outpatient [facility] [id number] [place] 07:33:51 [id number] [facility] 2022-05-02 Outpatient 3 [id number] [facility] PUL [id number] [facility] 09:08:37 [facility] [place] 2022-05-01 Outpatient 3 [id number] [facility] REF [id number] [facility] 10:15:36 1002 [facility] [place] 2022-03-10 Outpatient [facility] [id number] [place] 11:35:42 [id number] [facility] 2022-03-07 Outpatient [facility] [id number] [place] 14:31:45 [id number] [facility] 2022-03-07 Inpatient PHYSICIAN, [facility] MED Sean [facility] 14:31:42 NON 2022-01-27 Outpatient ANJALI, [facility] [id number] [place] 10:32:12 MUNACHI [id number] Health 2022-01-06 Outpatient [facility] [id number] [place] 08:50:11 [id number] Health 2022-01-01 Outpatient [facility] [id number] [place] 12:07:43 [id number] [facility] 2021-12-21 Outpatient [facility] [id number] [place] 12:23:36 [id number] [facility] 2021-05-31 Emergency [facility] [id number] [facility] [id number] Univers 06:34:26 [facility] 2019-02-26 Inpatient U [facility] MED [id number] Mem oria 16:12:00 susan Smith l [facility] 2023-05-01 2023-05-01 Outpatient [facility] 140 [id number] [facility] 00:00:00 00:00:00 d_J [id number] Medica l 2023-05-01 2023-05-01 Outpatient [facility]IV 140 [id number] [facility] 00:00:00 00:00:00 d_J [id number] Medica l 2023-05-01 2023-05-01 Outpatient [facility]IV 140 [id number] [facility] 00:00:00 00:00:00 d_J [id number] Medica l 2023-05-01 2023-05-01 Outpatient [facility] PRIV 140 [id number] [facility] 00:00:00 00:00:00 d_J [id number] Medica l 2023-05-01 2023-05-01 Outpatient [facility] PRIV 140 [id number] [facility] 00:00:00 00:00:00 d_J [id number] Medica l 2023-05-01 2023-05-01 Outpatient [facility] PRIV 140 [id number] [facility] 00:00:00 00:00:00 d_J [id number] Medica l 2023-05-01 2023-05-01 Outpatient [facility] PRIV 140 [id number] [facility] 00:00:00 00:00:00 d_J [id number] Medica l 2023-05-01 2023-05-01 Outpatient [facility] PRIV 140 [id number] [facility] 00:00:00 00:00:00 d_J [id number] Medica l 2023-04-17 2023-04-17 Outpatient [facility] PRIV 140 [id number] [facility] 00:00:00 00:00:00 d_J [id number] Medica l 2023-04-17 2023-04-17 Outpatient [facility] PRIV 140 [id number] [facility] 00:00:00 00:00:00 d_J [id number] Medica l 2023-04-17 2023-04-17 Outpatient [facility] PRIV 140 [id number] [facility] 00:00:00 00:00:00 d_J [id number] Medica l 2023-04-17 2023-04-17 Outpatient [facility] PRIV 140 [id number] [facility] 00:00:00 00:00:00 d_J [id number] Medica l 2023-04-17 2023-04-17 Outpatient [facility] PRIV 140 [id number] [facility] 00:00:00 00:00:00 d_J [id number] Medica l 2023-04-17 2023-04-17 Outpatient [facility] PRIV 140 [id number] [facility] 00:00:00 00:00:00 d_J [id number] Medica l 2023-03-13 2023-03-13 Outpatient [facility] PRIV 140 [id number] [facility] 00:00:00 00:00:00 d_J [id number] Medica l 2023-03-13 2023-03-13 Outpatient [facility] PRIV 140 [id number] [facility] 00:00:00 00:00:00 d_J [id number] Medica l 2023-03-13 2023-03-13 Outpatient [facility] PRIV 140 [id number] [facility] 00:00:00 00:00:00 d_J [id number] Medica l 2023-03-13 2023-03-13 Outpatient [facility] PRIV 140 [id number] [facility] 00:00:00 00:00:00 d_J [id number] Medica l 2023-03-13 2023-03-13 Outpatient [facility] PRIV 140 [id number] [facility] 00:00:00 00:00:00 d_J [id number] Medica l 2023-03-13 2023-03-13 Outpatient [facility] PRIV 140 [id number] [facility] 00:00:00 00:00:00 d_J [id number] Medica l 2023-03-13 2023-03-13 Outpatient [facility] PRIV 140 [id number] [facility] 00:00:00 00:00:00 d_J [id number] Medica l 2023-03-13 2023-03-13 Outpatient [facility] PRIV 140 [id number] [facility] 00:00:00 00:00:00 d_J [id number] Medica l 2023-03-13 2023-03-13 Outpatient [facility] PRIV 140 [id number] [facility] 00:00:00 00:00:00 d_J [id number] Medica l 2023-03-13 2023-03-13 Outpatient [facility] PRIV 140 [id number] [facility] 00:00:00 00:00:00 d_J [id number] Medica l 2023-03-13 2023-03-13 Outpatient [facility] PRIV 140 [id number] [facility] 00:00:00 00:00:00 d_J [id number] Medica l 2023-03-13 2023-03-13 Outpatient [facility] PRIV 140 [id number] [facility] 00:00:00 00:00:00 d_J [id number] Medica l 2023-03-13 2023-03-13 Outpatient [facility] PRIV 140 [id number] [facility] 00:00:00 00:00:00 d_J [id number] Medica l 2023-03-13 2023-03-13 Outpatient [facility] PRIV 140 [id number] [facility] 00:00:00 00:00:00 d_J [id number] Medica l 2023-03-09 2023-03-09 Outpatient [facility] PRIV 140 [id number] [facility] 00:00:00 00:00:00 d_J [id number] Medica l 2023-03-02 2023-03-02 Outpatient [facility] PRIV 140 [id number] [facility] 00:00:00 00:00:00 d_J [id number] Medica l 2023-03-02 2023-03-02 Outpatient [facility] PRIV 140 [id number] [facility] 00:00:00 00:00:00 d_J [id number] Medica l 2023-03-02 2023-03-02 Outpatient [facility] PRIV 140 [id number] [facility] 00:00:00 00:00:00 d_J [id number] Medica l 2023-02-23 2023-02-23 Outpatient [facility] PRIV 140 [id number] [facility] 00:00:00 00:00:00 d_J [id number] Medica l 2023-02-23 2023-02-23 Outpatient [facility] PRIV 140 [id number] [facility] 00:00:00 00:00:00 d_J [id number] Medica l 2023-02-21 2023-02-21 Outpatient [facility] PRIV 140 [id number] [facility] 00:00:00 00:00:00 d_J [id number] Medica l 2023-02-15 2023-02-15 Outpatient [facility] [id number] [facility] 00:00:00 00:00:00 BRIDGET Ruff ld 2023-02-10 2023-02-10 Outpatient [facility] PR[facility] PRIV 140 [id number] [facility] 00:00:00 00:00:00 d_J [id number] Medica l 2023-02-10 2023-02-10 Outpatient [facility] PRIV 140 [id number] [facility] 00:00:00 00:00:00 d_J [id number] Medica l 2023-02-10 2023-02-10 Outpatient [facility] PRIV 140 [id number] [facility] 00:00:00 00:00:00 d_J [id number] Medica l 2023-01-26 2023-01-26 Outpatient [facility] PR[facility] PRIV 140 [id number] [facility] 00:00:00 00:00:00 d_J [id number] Medica l 2023-01-13 2023-01-13 Outpatient [facility] PRIV 140 [id number] [facility] 00:00:00 00:00:00 d_J [id number] Medica l 2023-01-13 2023-01-13 Outpatient [facility] PRIV 140 [id number] [facility] 00:00:00 00:00:00 d_J [id number] Medica l 2023-01-13 2023-01-13 Outpatient [facility] PRIV 140 [id number] [facility] 00:00:00 00:00:00 d_J [id number] Medica l 2023-01-13 2023-01-13 Outpatient [facility] PR[facility] PRIV 140 [id number] [facility] 00:00:00 00:00:00 d_J [id number] Medica l 2023-01-13 2023-01-13 Outpatient [facility] PR[facility] PRIV 140 [id number] [facility] 00:00:00 00:00:00 d_J [id number] Medica l 2022-12-23 2022-12-23 Outpatient [facility] PR[facility] PRIV 140 [id number] [facility] 00:00:00 00:00:00 d_J [id number] Medica l 2022-12-23 2022-12-23 Outpatient [facility] PR[facility] PRIV 140 [id number] [facility] 00:00:00 00:00:00 d_J [id number] Medica l 2022-12-21 2022-12-21 Outpatient [facility] PRIV 140 [id number] [facility] 00:00:00 00:00:00 d_J [id number] Medica l 2022-12-15 2022-12-15 Outpatient [facility] PRIV 140 [id number] [facility] 00:00:00 00:00:00 d_J [id number] Medica l 2022-12-10 2022-12-10 [facility] [id number] [facility] 00:00:00 00:00:00 KOREY Mistry: Health - Med ical [address] [address] , Ph. 2022-11-30 2022-12-[address] [facility] Medical ICU [id number] [facility] 03:28:00 14:00:00 [place] 2022-11-30 2022-12-08 [facility] [id number] [facility] 03:28:00 14:00:00 Encounter Yassine Lafleur, Dilcia Leyva, [facility] 2022-11-30 2022-12-08 [facility] [id number] [facility] 03:28:00 14:00:00 Encounter Yassine Lafleur, Dilcia Leyva, [facility] 2022-12-07 2022-12-07 Outpatient [facility] PRIV PRIV 140 [id number] [facility] 00:00:00 00:00:00 d_J [id number] Medica l 2022-12-07 2022-12-07 Outpatient [facility] PRIV PRIV 140 [id number] [facility] 00:00:00 00:00:00 d_J [id number] Medica l 2022-11-29 2022-11-29 [facility] [id number] [facility] 00:00:00 00:00:00 KOREY Mistry: Health - Med ical [address] [address] , Ph. 2022-11-25 2022-11-25 [facility] [id number] [facility] 00:00:00 00:00:00 Fede, PA: Health - Med ical [address] [address] , Ph. 2022-11-15 2022-11-15 [facility] [id number] [facility] 00:00:00 00:00:00 Fede PA: Health - Med ical [address] [address] , Ph. 2022-11-11 2022-11-11 [facility] 414 [facility] 00:00:00 00:00:00 KOREY Mistry: Health - Med ical [address] [address] , Ph. 2022-11-02 2022-11-02 [facility] 405 [facility] 00:00:00 00:00:00 KOREY Mistry: Health - Med ical [address] [address] , Ph. 2022-10-28 2022-10-28 [facility] [id number] [facility] 00:00:00 00:00:00 KOREY Mistry: Health - Med ical [address] [address] , Ph. 2022-10-26 2022-10-26 [facility] [id number] [facility] 00:00:00 00:00:00 KOREY Mistry: Health - Med ical [address] [address] , Ph. 2022-10-24 2022-10-24 Outpatient [facility] PRIV PRIV 140 [id number] [facility] 00:00:00 00:00:00 d_J [id number] Medica l 2022-10-24 2022-10-24 Outpatient [facility] PRIV PRIV 140 [id number] [facility] 00:00:00 00:00:00 d_J [id number] Medica l 2022-10-24 2022-10-24 Outpatient [facility] PRIV PRIV 140 [id number] [facility] 00:00:00 00:00:00 d_J [id number] Medica l 2022-10-24 2022-10-24 Outpatient [facility] PRIV PRIV 140 [id number] [facility] 00:00:00 00:00:00 d_J [id number] Medica l 2022-10-24 2022-10-24 Outpatient [facility] PR[facility] PRIV 140 [id number] [facility] 00:00:00 00:00:00 d_J [id number] Medica l 2022-10-24 2022-10-24 Outpatient [facility] PRIV PRIV 140 [id number] [facility] 00:00:00 00:00:00 d_J [id number] Medica l 2022-10-24 2022-10-24 Outpatient [facility] PRIV PRIV 140 [id number] [facility] 00:00:00 00:00:00 d_J [id number] Medica l 2022-10-24 2022-10-24 Outpatient [facility] PRIV PRIV 140 [id number] [facility] 00:00:00 00:00:00 d_J [id number] Medica l 2022-10-24 2022-10-24 Outpatient [facility] PRIV PRIV 140 [id number] [facility] 00:00:00 00:00:00 d_J [id number] Medica l 2022-10-24 2022-10-24 Outpatient [facility] PRIV PRIV 140 [id number] [facility] 00:00:00 00:00:00 d_J [id number] Medica l 2022-10-21 2022-10-21 [facility] [id number] [facility] 00:00:00 00:00:00 KOREY Mistry: Health - Med ical [address] [address] , Ph. 2022-10-18 2022-10-18 [facility] [place] [facility] 321 [facility] 00:00:00 00:00:00 Fede PA: Health - Med ical [address] [address] , Ph. 2022-10-11 2022-10-11 Randi [facility] 314 [facility] 00:00:00 00:00:00 Fede PA: Health - Med ical [address] [address] , Ph. 2022-10-07 2022-10-07 Randi [facility] 310 [facility] 00:00:00 00:00:00 Fede PA: Health - Med ical [address] [address] , Ph. 2022-10-04 2022-10-04 Randi [facility] [id number] 307 [facility] 00:00:00 00:00:00 Fede PA: Health - Med ical [address] [facility] [address] , Ph. 2022-09-30 2022-09-30 [facility] [id number] [facility] 00:00:00 00:00:00 Fede PA: Health - Med ical [address] [place] [address] , Ph. 2022-09-28 2022-09-28 [facility] [id number] [facility] 00:00:00 00:00:00 Fede PA: Health - Med ical [address] [place] [address] , Ph. 2022-09-24 2022-09-24 Outpatient [facility] PRIV PRIV 140 [id number] [facility] 00:00:00 00:00:00 d_J [id number] Medica l 2022-09-24 2022-09-24 Outpatient [facility] PRIV PRIV 140 [id number] [facility] 00:00:00 00:00:00 d_J [id number] Medica l 2022-09-24 2022-09-24 Outpatient [facility] PRIV PRIV 140 [id number] [facility] 00:00:00 00:00:00 d_J [id number] Medica l 2022-09-24 2022-09-24 Outpatient [facility] PRIV PRIV [id number] [facility] 00:00:00 00:00:00 d_J [id number] Medica l 2022-09-24 2022-09-24 Outpatient GC_BAHC_Tod PRIV PRIV 140 [id number] [facility] 00:00:00 00:00:00 d_J [id number] Medica l 2022-09-24 2022-09-24 Outpatient GC_BAHC_Tod PRIV PRIV 140 [id number] [facility] 00:00:00 00:00:00 d_J [id number] Medica l 2022-09-24 2022-09-24 Outpatient GC_BAHC_Tod PRIV PRIV 140 [id number] [facility] 00:00:00 00:00:00 d_J [id number] Medica l 2022-09-24 2022-09-24 Outpatient GC_BAHC_Tod PRIV PRIV 140 [id number] [facility] 00:00:00 00:00:00 d_J [id number] Medica l 2022-09-24 2022-09-24 Outpatient GC_BAHC_Tod PRIV PRIV 140 [id number] [facility] 00:00:00 00:00:00 d_J [id number] Medica l 2022-09-23 2022-09-23 Randi [facility] [id number] [facility] 00:00:00 00:00:00 KOREY Mistry: Health - Med ical [address] [place] [address] , Ph. 2022-09-21 2022-09-21 Outpatient GC_BAHC_Tod PRIV PRIV 140 [id number] [facility] 00:00:00 00:00:00 d_J [id number] Medica l 2022-09-21 2022-09-21 Outpatient GC_BAHC_Tod PRIV PRIV 140 [id number] [facility] 00:00:00 00:00:00 d_J [id number] Medica l 2022-09-20 2022-09-20 Outpatient GC_BAHC_Tod PRIV PRIV 140 [id number] [facility] 00:00:00 00:00:00 d_J [id number] Medica l 2022-09-20 2022-09-20 Randi [facility] [id number] [facility] 00:00:00 00:00:00 KOREY Mistry: Health - Med ical 413 [place] [address] , Ph. 2022-09-19 2022-09-19 Outpatient GC_BAHC_Tod PRIV PRIV 140 [id number] [facility] 00:00:00 00:00:00 d_J [id number] Medica l 2022-09-19 2022-09-19 Outpatient GC_BAHC_Tod PRIV PRIV 266 [id number] [facility] 00:00:00 00:00:00 d_J [id number] Medica l 2022-09-16 2022-09-16 Randi [facility] [id number] [facility] 00:00:00 00:00:00 KOREY Mistry: Health - Med ical [address] [place] [address] , Ph. 2022-09-13 2022-09-13 Outpatient Marco Antonio [facility] [id number] Univers 13:00:00 13:00:00 LOVE noel [facility] 2022-09-13 2022-09-13 Outpatient GC_BAHC_Tod PRIV PRIV 140 [id number] [facility] 00:00:00 00:00:00 d_J [id number] Medica l 2022-09-13 2022-09-13 Chuy Rosado [facility] [id number] [facility] 00:00:00 00:00:00 Abigail [facility] - Med ical MD: [address] [place] [address] , Ph. 2022-09-10 2022-09-10 Outpatient GC_BAHC_Tod PRIV PRIV 266 [id number] [facility] 00:00:00 00:00:00 d_J [id number] Medica l 2022-09-10 2022-09-10 Outpatient GC_BAHC_Tod PRIV PRIV 266 [id number] [facility] 00:00:00 00:00:00 d_J [id number] Medica l 2022-09-10 2022-09-10 Randi [facility] [id number] [facility] 00:00:00 00:00:00 KOREY Mistry: [facility] - Med ical [address] [place] [address] , Ph. 2022-09-06 2022-09-06 Outpatient GC_BAHC_Tod PRIV PRIV 140 [id number] [facility] 00:00:00 00:00:00 d_J [id number] Medica l 2022-09-06 2022-09-06 Outpatient GC_BAHC_Tod PRIV PRIV 266 [id number] [facility] 00:00:00 00:00:00 d_J [id number] Medica l 2022-09-06 2022-09-06 Transition PAT Boykin 1.2.840.114 [id number] Univers 00:00:00 00:00:00 of Care Shayan RICHARD 350.1.13.10 Nanette 4.2.7.2.686 Leodan s [id number] [facility] [address] 2022-08-16 2022-09-05 Inpatient Korey STOUT [facility] [id number] Univers 07:41:00 19:30:00 ONEIDA noel [facility] 2022-08-16 2022-09-05 Hospital StephaneRenetta Peyman [facility] 1.2.84 0.114 [id number] Univers 07:41:00 19:30:00 Encounter Jin Valiente 350.1.13.10 ity of [place] 4.2.7.2.686 [facility] [id number] [facility] [address] 2022-09-01 2022-09-01 Telephone [place] [facility] 1.2.840.114 [id number] Univers 00:00:00 00:00:00 Love LOPEZ 350.1.13.10 ity of [facility] 4.2.7.2.686 [facility] [id number] [address] [facility]AB[facility]ES [facility]IC 2022-08-06 2022-08-06 Emergency X HIPOLITO [facility] ERT [id number] Univers 09:13:00 13:11:00 CIRILO noel [facility] 2022-08-06 2022-08-06 Emergency [facility] 1.2.210.077 [id number] Univers 09:13:00 13:11:00 Cirilo BOUCHER 350.1.13.10 ity of [facility] 4.2.7.2.[address] [place] [address] [phone] [facility] [address] 2022-07-21 2022-07-21 Orders Doctor DARRYL 1.2.840.114 [id number] Univers 00:00:00 00:00:00 Only Unassigned, LENA 350.1.13.10 ity of [place] [facility] 4.2.7.2.686 [facility] [id number] [facility] [address] 2022-07-20 2022-07-20 Emergency X SINGER [facility] ERT [id number] Univers 13:49:00 16:54:00 DEVIKA noel [facility] 2022-07-20 2022-07-20 Emergency [facility] 1.2.209.057 [id number] Univers 13:49:00 16:54:00 Devika BOUCHER 350.1.13.10 i ty of [facility] 4.2.7.2.686 [facility] [id number] [address] 2022-07-16 2022-07-16 Emergency X [facility] ERT [id number] Univers 08:02:00 11:10:00 RENETTA noel [facility] 2022-07-16 2022-07-16 Emergency [facility] 1.2.840.114 [id number] Univers 08:02:00 11:10:00 Renetta BOUCHER 350.1.13.10 ity of [place] 4.2.7.2.686 [facility] [id number] [address] 2022-07-12 2022-07-12 Outpatient R [facility] 10 [id number] Univers 10:00:00 10:00:00 WIL VAN i ty of [facility] 2022-07-08 2022-07-08 Emergency X HIPOLITO, [facility] ERT [id number] Univers 11:51:00 20:30:00 CIRILO noel [facility] 2022-07-08 2022-07-08 Emergency [facility] 1.2.191.015 [id number] Univers 11:51:00 20:30:00 Cirilo BOUCHER 350.1.13.10 ity of [place] 4.2.7.2.686 [facility] [id number] [place] [address] 2022-06-27 2022-06-27 Orders Doctor DARRYL 1.2.840.114 [id number] Univers 00:00:00 00:00:00 Only Unassigned, LENA 350.1.13.10 ity of [place] [facility] 4.2.7.2.686 [place]errero [id number] [address] 2022-06-17 2022-06-17 Telephone Opal [facility] 1.2.632.503 [id number] Univers 00:00:00 00:00:00 Wil BOUCHER 350.1.13.10 i ty of [place] 4.2.7.2.686 [facility] PROFESSIO [phone] Ms dical [facility] 2022-05-24 2022-05-24 Outpatient R [facility] [id number] Univers 11:30:00 14:55:56 WIL VAN i ty of [facility] 2022-05-24 2022-05-24 Office [facility] 1.2.840.114 [id number] Univers 11:30:00 12:00:00 Visit Wil VELASCOKAILYN 350.1.13.10 i ty of [facility] 4.2.7.2.686 [place] [phone] Ms dical NAL 085 [facility] 2022-05-03 2022-05-03 Telemedici [facility] 1.2.840.114 [id number] Univers 15:00:00 15:30:00 ne Visit Love LOPEZ 350.1.13.10 it[place] of [place] [id number] [address] [facility]IC 2022-05-03 2022-05-03 [facility] [id number] Univers 15:00:00 15:00:00 LOVE ity [facility] 2022-04-29 2022-04-29 Telephone [facility] 1.2.840.114 [id number] Univers 00:00:00 00:00:00 Love JOHN 350.1.13.10 it[place] [id number] [address] [facility] 2022-04-29 2022-04-29 Telephone [facility] 1.2.840.114 [id number] Univers 00:00:00 00:00:00 Love MULTISPEC 350.1.13.10 ity of [place]2.[place] [id number] [address] [facility]IC 2022-04-28 2022-04-28 Transition PAT Boykin 1.2.840.114 [id number] Univers 00:00:00 00:00:00 of Care Shayan RICHARD 350.1.13.10 ity of [place]2.7.2.686 [id number] [place] [address] [address] 2022-04-21 2022-04-27 Inpatient X LEX [facility] SORAIDA [id number] Univers 18:08:00 14:50:00 RASHAD ity of [facility] 2022-04-21 2022-04-27 Hospital Mateusz Iqbal [facility] 1.2.8 40.114 [id number] Univers 18:08:00 14:50:00 Encounter Arielle Palomino 350.1.13.10 ity of Rashad Burnett [facility] 4.2.7.2.686 [facility] [id number] [facility] [address] 2022-04-26 2022-04-26 Surgery [facility] 1.2.086.429 [id number] Univers 07:55:00 09:29:00 Sheyla BOUCHER 350.1.13.10 i ty of [facility] 4.2.7.2.686 [facility] SURGICAL [id number] [place] [address] [address] 2022-03-22 2022-03-22 [facility] [id number] [place] 13:00:00 13:00:00 [facility] 2022-03-02 2022-03-15 Inpatient [facility] [id number] Memoria 23:59:18 18:07:00 r Buck 01 l [facility] 2022-03-02 2022-03-15 Inpatient E JAC MHNW MHNW 7501 MHNW 21:32:00 13:07:00 , ELLISON 2022-03-02 2022-03-15 Outpatient [facility] [id number] 18:59:18 13:07:00 , Ellison 01 2022-03-02 2022-03-02 Outpatient Olive GHR [facility] [id number] 18:59:18 18:59:18 Marques 01 Yaakov 2022-01-24 2022-02-25 Outpatient PURVI Nazario PPS [id number] [facility] 23:40:00 18:20:00 Daniel Mercado [facility] 2022-01-24 2022-02-25 Inpatient PURVI Arshad ICU [id number] 22:28:00 18:20:00 Imoigele 81 tone [facility] 2022-01-24 2022-02-25 Inpatient PURVI ArshadSP ICU [id number] [address] 22:28:00 18:20:00 Imoigele 0627 tone Special ty [facility] 2022-02-23 2022-02-23 Outpatient Elective Partha, [facility] [id number] [facility] 11:05:00 20:24:00 Darryl 21 2022-02-23 2022-02-23 Outpatient [facility] [id number] [facility] 11:05:00 11:05:00 21 2022-02-21 2022-02-21 Outpatient Marco Antonio [facility] [id number] Univers 15:30:00 15:30:00 LOVE noel [facility] 2022-01-25 2022-01-25 Outpatient MansiASHLEYW REF [id number] [facility] 08:04:00 08:04:00 Imoigele 39 [place] [facility] 2021-12-30 2022-01-25 Inpatient [facility] [id number] Memoria 14:35:00 02:50:[address] 2021-12-30 2022-01-24 Inpatient E ALFONSO, [facility] PUL [id number] [facility] 10:30:00 21:50:00 [facility] 2021-12-30 2022-01-24 Outpatient Alfonso [facility] [id number] 09:35:00 21:50:00 [place] [address] 2022-01-24 2022-01-24 Outpatient Marco Antonio [facility] [id number] Univers 15:00:00 15:00:00 LOVE noel [facility] 2022-01-17 2022-01-17 Telephone [place] [facility] 1.2.840.114 [id number] Univers 00:00:00 00:00:00 [facility] 350.1.13.10 bert [facility] 4.2.7.2.686 [facility] [id number] [address] DIABETES CLINIC 2022-01-08 2022-01-08 Outpatient BRIANNA [facility] [id number] [place] 08:30:00 08:30:[address] [facility] 2021-12-30 2021-12-30 Outpatient Luis [facility] [id number] 09:35:00 09:35:00 [place] [address] [place] 2021-12-06 2021-12-06 Outpatient Marco Antonio [facility] [id number] Univers 08:00:00 08:00:00 LOVE ity [facility] 2021-12-06 2021-12-06 Outpatient Marco Antonio [facility] [id number] Univers 08:00:00 08:00:00 LOVE itafshin [facility] 2021-11-22 2021-11-22 Outpatient Marco Antonio [facility] [id number] Univers 15:30:00 16:30:47 LOVE noel [facility] 2021-11-22 2021-11-22 Office [place] [facility] 1.2.195.619 [id number] Univers 15:30:00 16:30:47 Visit Love LOPEZ 350.1.13.10 ity of [place] 4.2.7.2.686 [facility] [id number] [address] [facility] 2021-11-22 2021-11-22 Outpatient Marco Antonio [facility] [id number] Univers 15:30:00 16:30:47 LOVE noel [facility] 2021-11-22 2021-11-22 Outpatient Marco Antonio [facility] [id number] Univers 15:30:00 15:30:00 LOVE ity [facility] 2021-11-19 2021-11-19 Art Teacher Trevor, Henny Lab Main [facility] 1.2.8 40.114 [id number] Univers 08:00:00 08:15:00 Visit Darrel Wooten 350.1.13.10 ity of [place] 4.2.7.2.686 [facility] [phone] Ms dical [address] 2021-11-19 2021-11-19 Outpatient Marco Antonio [facility] [id number] Univers 08:00:00 08:00:00 LOVE ity [facility] 2021-11-19 2021-11-19 Outpatient R [facility] [id number] Univers 08:00:00 08:00:00 LOVE ity [facility] 2021-11-15 2021-11-15 Telephone [facility] 1.2.840.114 [id number] Univers 00:00:00 00:00:00 Love MULTISPEC 350.1.13.10 it[place] [id number] [address] [facility]ES [facility]INIC 2021-09-03 2021-09-03 Telephone [facility] 1.2.840.114 [id number] Univers 00:00:00 00:00:00 Love MULTISPEC 350.1.13.10 ity of [place] 4.2.7.2.686 [facility] [id number] [address] DI[facility]ES CLINIC 2021-08-23 2021-08-23 Art Teacher Vt-Lab [facility] 1.2.840.114 [id number] Univers 16:00:00 16:15:00 Visit Love Childress 350.1.13.1 0 ity of [place] 4.2.7.2.686 [facility] [id number] [address] DIABETES CLINIC 2021-08-23 2021-08-23 Outpatient R [facility] [id number] Univers 15:00:00 15:22:06 LOVE ity [facility] 2021-08-23 2021-08-23 Office [facility] 1.2.615.166 [id number] Univers 15:00:00 15:22:06 Visit Love LOPEZ 350.1.13.10 ity of [place] 4.2.7.2.686 [facility] [id number] [address] [facility]ES [facility]IC 2021-08-23 2021-08-23 Outpatient R [facility] [id number] Univers 15:00:00 15:00:00 LOVE ity [facility] 2021-08-18 2021-08-18 Outpatient R [facility] [id number] Univers 08:00:00 08:00:00 LOVE ity [facility] 2021-08-18 2021-08-18 Outpatient R [facility] [id number] Univers 08:00:00 08:00:00 LOVE ity [facility] 2021-08-18 2021-08-18 Outpatient R [facility] [id number] Univers 08:00:00 08:00:00 LOVE ity [facility] 2021-08-18 2021-08-18 Outpatient R [facility] [id number] Univers 08:00:00 08:00:00 LOVE ity [facility] 2021-08-13 2021-08-13 [place] [facility] 1.2.840.114 [id number] Univers 00:00:00 00:00:00 Love MULTISPEC 350.1.13.10 ity of [place] 4.2.7.2.[address] [place] [address] [phone] [facility] AND STEPHENS [address] DIABETES CLINIC 2021-07-05 2021-07-05 Hospital Radiology [facility] 1.2.840.114 [id number] Univers 10:15:52 23:59:00 Encounter [place] 350.1.13.10 ity of [facility] 4.2.7.2.[address] [place] [address] [id number] [facility] [address] 2021-07-05 2021-07-05 Outpatient R [facility] [id number] Univers 10:14:58 10:14:58 ity of [facility] 2021-07-05 2021-07-05 Hospital Radiology [facility] 1.2.840.114 [id number] Univers 10:14:58 10:14:58 Encounter [place] 350.1.13.10 ity of [place] 4.2.7.2.686 [facility] [id number] [facility] [address] 2021-07-05 2021-07-05 Orders Doctor GONZALEZ 1.2.840.114 [id number] Univers 00:00:00 00:00:00 Only Unassigned, LENA 350.1.13.10 [facility] 4.2.7.2.686 Guerrero as [id number] [place] [address] Branch 2021-06-28 2021-06-28 Outpatient R RAD[facility]OLOGY [facility] [id number] Univers 00:00:00 00:00:00 ity of [facility] 2021-06-28 2021-06-28 Telephone [facility] 1.2.840.114 [id number] Univers 00:00:00 00:00:[facility] 350.1.13.10 ity of [place] 4.2.7.2.686 [facility] [id number] [address] [facility]ES [facility]INIC 2021-06-23 2021-06-23 Outpatient R RADIOLOGY [facility] [id number] Univers 00:00:00 00:00:00 ity of [facility] 2021-06-23 2021-06-23 Outpatient R RADIOLOGY [facility] [id number] Univers 00:00:00 00:00:00 ity of [facility] 2021-06-23 2021-06-23 Outpatient R RADIOLOGY [facility] [id number] Univers 00:00:00 00:00:00 ity [facility] 2021-05-24 2021-05-24 [facility]patient [facility] [id number] Univers 15:00:00 15:41:49 [facility] 2021-05-24 2021-05-24 Office [facility] 1.2.011.744 [id number] Univers 14:46:50 15:41:49 Visit Love LOPEZ 350.1.13.10 ity of [place] 4.2.7.2.686 [facility] CENTER [id number] [address] DIABETES CLINIC 2021-05-18 2021-05-18 Outpatient [facility] [id number] Univers 08:30:00 08:30:00 LOVE ity [facility] 2021-05-18 2021-05-18 Outpatient [facility] [id number] Univers 08:30:00 08:30:00 LOVE ity [facility] 2021-05-18 2021-05-18 Art Teacher Trevor, Adc Lab Main [facility] 1.2.8 40.114 [id number] Univers 08:14:04 08:29:04 Visit Love Childress 350.1.13.10 ity of [place].2.686 [place] [facility] [id number] Ms dical [facility] [address] Building 2021-05-17 2021-05-17 Telephone [place] [facility] 1.2.840.114 [id number] Univers 00:00:00 00:00:00 Love MULTISPEC 350.1.13.10 ity of [place] 4.2.7.2.686 [place] [id number] [facility] [place] [address] [address] DIABETES CLINIC 2021-04-27 2021-04-27 Outpatient GC_EAH_Brow PRIV PRIV [id number] [facility] 00:00:00 00:00:00 n_J [id number] Medica l 2021-03-30 2021-03-30 Orders Doctor DARRYL 1.2.840.114 [id number] Univers 00:00:00 00:00:00 Only Unassigned, LENA 350.1.13.10 ity of [place] [facility] 4.2.7.2.686 Guerrero as [id number] [facility] [address] 2021-03-24 2021-03-24 Outpatient R [facility] [id number] Univers 16:30:00 16:30:00 LOVE ity of [facility] 2021-03-15 2021-03-15 Transition Pat Boykin 1.2.840.114 [id number] Univers 00:00:00 00:00:00 of Care Shayan Richard 350.1.13.10 ity of [place].2.7.2.686 [place] [id number] [facility] [address] 2021-03-11 2021-03-12 Emergency Zach Bonilla [facility] 1.2.840. 114 [id number] Univers 08:41:00 17:30:00 Jin Valiente 350.1.13.10 ity of [place].7.2.686 [place] [id number] [facility] [address] 2021-02-22 2021-02-22 Nurse Nurse, [facility] Nephrology [facility] 1.2. 840.114 [id number] Univers 10:14:31 10:44:31 Visit [place] Lovetejal LOPEZ 350.1.13.1 0 ity of [place] 4.2.7.2.686 [facility] [id number] [address] DIABETES CLINIC 2021-02-22 2021-02-22 Outpatient R [facility] [id number] Univers 10:30:00 10:30:00 LOVE ity [facility] 2021-02-22 2021-02-22 Outpatient [facility] [id number] Univers 10:30:00 10:30:00 LOVE ity [facility] 2021-02-22 2021-02-22 Telephone [facility] 1.2.840.114 [id number] Univers 00:00:00 00:00:00 Love LOPEZ 350.1.13.10 ity of [place] 4.2.7.2.686 [facility] [id number] [address] DIABETES [facility] 2021-02-09 2021-02-09 Telephone [place] [facility] 1.2.840.114 [id number] Univers 00:00:00 00:00:00 Love LOPEZ 350.1.13.10 ity of [place] 4.2.7.2.686 [facility] [id number] [address] DIABETES CLINIC 2021-02-08 2021-02-08 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 [facility] 1.2.840.114 [id number] Univers 16:46:29 17:01:29 Visit Love Childress 350.1.13.1 0 ity of [place] 4.2.7.2.686 [facility] [phone] [facility] [address] DIABETES CLINIC 2021-02-08 2021-02-08 Office [facility] 1.2.063.416 [id number] Univers 15:33:37 16:49:16 Visit Love MULTISPEC 350.1.13.10 ity of [place] 4.2.7.2.686 [facility] [place] [id number] [address] DIABETES CLINIC 2021-02-08 2021-02-08 Outpatient R [facility] [id number] Univers 16:45:00 16:45:00 LOVE ity [facility] 2021-02-08 2021-02-08 Outpatient R [facility] [id number] Univers 16:00:00 16:00:00 LOVE ity [facility] 2021-01-29 2021-01-29 Telephone [facility] 1.2.840.114 [id number] Univers 00:00:00 00:00:00 Love ROBERTOPEC 350.1.13.10 ity of [place] 4.2.7.2.686 [facility] [place] [id number] [address] DIABETES CLINIC 2021-01-13 2021-01-13 Nurse Nurse, [facility] Nephrology [facility] 1.2. 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 [facility] [id number] Univers 16:26:56 16:41:56 Visit Love Childress [id number] 0 ity of [place] [id number] [facility] [phone] [facility] [address] [facility] 2020-12-30 2020-12-30 [facility] [id number] Univers 15:03:03 16:24:14 Visit [place] [facility] [id number] ity of [place] [id number] [facility] [place] [phone] [address] [facility] 2020-12-30 2020-12-30 [facility] [id number] Univers 15:30:00 15:30:00 LOVE ity [facility] 2020-11-25 2020-11-25 [facility] [id number] Univers 16:00:00 16:00:00 LOVE ity [facility] 2020-11-25 2020-11-25 [facility]patient [facility] [id number] Univers 16:00:00 16:00:00 LOVE ity [facility] 2020-11-23 2020-11-23 Orders Doctor DARRYL [id number] Univers 00:00:00 00:00:00 Only Unassigned, LENA [id number] [facility] [id number] [place] [phone] [address] 2020-11-18 2020-11-18 Office [facility] [id number] Univers 15:47:12 16:22:19 Visit [facility] [id number] ity of [place] [id number] [facility] [place] [phone] [address] [facility] 2020-11-18 2020-11-18 [facility] [id number] Univers 16:00:00 16:00:00 [place] ity [facility] 2020-11-02 2020-11-02 [facility]phone [facility] [id number] [id number] Univers 00:00:00 00:00:00 [id number] [facility] of [place] [id number] [facility] [place] [phone] [address] [facility] 2020-10-21 2020-10-21 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 [facility] [id number] [id number] Univers 16:33:57 16:48:57 Visit Love Childress 350.1.13.1 0 ity of [place] [id number] [facility] [phone] [facility] AND [address] [facility] 2020-10-21 2020-10-21 [facility] [id number] Univers 15:50:19 16:36:29 Visit Love JOHN [id number] ity of [place] [id number] [facility] [phone] [address] [facility] 2020-10-21 2020-10-21 Outpatient [facility] [id number] Univers 16:00:00 16:00:00 [facility] 2020-10-16 2020-10-16 Outpatient [facility] [id number] Univers 17:15:00 17:15:00 [facility] 2020-08-26 2020-08-26 [facility] [id number] Univers 17:15:00 17:15:00 [facility] 2020-08-19 2020-08-19 [facility] 1.2.173.321 [id number] 15:31:52 16:36:25 Visit Love LOPEZ 350.1.13.10 IAL[place] 4.2.7.2.686 [place] [phone] [place] [address] [facility] 2020-08-19 2020-08-19 [facility] 1.2.117.991 [id number] Univers 15:31:52 16:36:25 Visit Love JOHN 350.1.13.10 ity of [place] 4.2.7.2.686 [facility] [phone] [facility] AND [address] DI[facility]ES [facility]INIC 2020-08-19 2020-08-19 Outpatient [facility] [id number] Univers 16:00:00 16:00:00 [place] [facility] 2020-08-15 2020-08-15 Outpatient [facility] [id number] Univers 10:00:00 10:00:00 ity of [facility] 2020-08-12 2020-08-12 Telephone [facility] 1.2.840.114 [id number] Univers 00:00:00 00:00:00 Love JOHN 350.1.13.10 [place] [phone] [address] [facility] 2020-07-10 2020-07-10 [facility] 1.2.840.114 [id number] Univers 00:00:00 00:00:00 Love FELISAPEC 350.1.13.10 [place] [phone] [address] [facility] 2020-07-09 2020-07-09 [facility] 1.2.270.716 [id number] Univers 15:38:31 16:13:45 Visit Love LOPEZ 350.1.13.10 [place] [phone] [address] DIABETES [facility] 2020-07-09 2020-07-09 Outpatient [facility] [id number] Univers 16:00:00 16:00:00 LOVE ity [facility] 2020-07-04 2020-07-04 Art Teacher Trevor, Henny Lab Main [facility] 1.2.8 40.114 [id number] Univers 11:01:34 11:16:34 Visit Love Childress 350.1.13.10 it[place] of [place] [phone] [address] 2020-07-04 2020-07-04 Outpatient [facility] [id number] Univers 09:00:00 09:00:00 LOVE ity [facility] 2020-07-04 2020-07-04 Orders Doctor GONZALEZ 1.2.840.114 [id number] Univers 00:00:00 00:00:00 Only Unassigned, LENA 350.1.13.10 ity of [facility] 4.2.7.2.686 [place] as [phone] [address] 2020-06-30 2020-06-30 Outpatient [facility] [id number] Univers 15:30:00 15:30:00 LOVE ity [facility] 2020-06-22 2020-06-22 Telephone [facility] 1.2.840.114 [id number] Univers 00:00:00 00:00:00 [facility] 350.1.13.10 [place] [phone] [address] [facility] 2020-06-10 2020-06-10 Outpatient [facility] [id number] Univers 08:00:00 08:00:00 ity of [facility] 2020-06-06 2020-06-06 Refill [facility] 1.2.864.093 [id number] Univers 00:00:00 00:00:00 [facility] 350.1.13.10 [place] [phone] [address] [facility] 2020-05-28 2020-05-28 [facility] 1.2.456.387 [id number] Univers 13:41:46 14:36:57 [facility] 350.1.13.10 [place] [phone] [address] [facility] 2020-05-28 2020-05-28 Outpatient [facility] [id number] Univers 14:00:00 14:00:00 LOVE ity [facility] 2020-05-22 2020-05-22 Telephone [facility] 1.2.840.114 [id number] Univers 00:00:00 00:00:00 [facility] 350.1.13.10 [place] [phone] [address] [facility]ES [facility]INIC 2020-05-21 2020-05-21 [facility]phone [facility] 1.2.840.114 [id number] Univers 00:00:00 00:00:00 Love LOPEZ 350.1.13.10 [place] [phone] [address] [facility] 2020-05-19 2020-05-19 [facility]phone [facility] 1.2.840.114 [id number] Univers 00:00:00 00:00:00 Love LOPEZ 350.1.13.10 ity of [place] 4.2.7.2.686 [facility] [place] [phone] [address] [facility]ES [facility]INIC 2020-05-13 2020-05-13 Art Teacher Trevor, Adc Lab Main [facility] 1.2.8 40.114 [id number] Univers 10:40:17 10:55:17 Visit Love Childress 350.1.13.10 ity of [place] 4.2.7.2.686 [facility] [phone] Ms dical [address] 2020-05-13 2020-05-13 Laboratory Only, Adc Test [facility] 1.2.840. 114 [id number] Univers 10:37:56 10:52:56 Only Darrel Wooten 350.1.13.10 ity of [place] 4.2.7.2.686 [facility] [place] [phone] [address] 2020-05-13 2020-05-13 Outpatient [facility] [id number] Univers 10:30:00 10:30:00 DARREL noel [facility] 2020-05-07 2020-05-07 Telephone [facility] 1.2.840.114 [id number] Univers 00:00:00 00:00:00 Love LOPEZ 350.1.13.10 [place] [phone] [address] [facility]ES CLINIC 2020-05-01 2020-05-01 [facility]phone [facility] 1.2.840.114 [id number] Univers 00:00:00 00:00:00 Love LOPEZ 350.1.13.10 [place] [phone] [address] [facility] 2020-04-28 2020-04-29 Office [place] [facility] 1.2.084.534 [id number] Univers 12:41:37 09:03:41 Visit Love LOPEZ 350.1.13.10 ity of [place] 4.2.7.2.686 [facility] [place] [phone] [address] [facility]ES CLINIC 2020-04-28 2020-04-28 Art Teacher Vt-Lab [facility] 1.2.840.114 [id number] Univers 13:39:25 13:54:25 Visit Love Childress 350.1.13.1 0 ity of [place] 4.2.7.2.686 [facility] [place] [phone] [facility] [address] DIABETES [facility] 2020-04-28 2020-04-28 [facility] [id number] Univers 13:00:00 13:00:00 LOVE saleemy [facility] 2020-03-24 2020-03-24 Outpatient [facility] [id number] Univers 10:00:00 10:00:00 [facility] 2020-03-24 2020-03-24 Telemedici [facility] 1.2.840.114 [id number] Univers 07:34:42 08:04:42 ne Visit Love LOPEZ 350.1.13.10 ity of [place] 4.2.7.2.686 [facility] [place] [phone] [address] DIABETES [facility] 2020-03-09 2020-03-09 Orders Doctor DARRYL 1.2.840.114 [id number] Univers 00:00:00 00:00:00 Only Unassigned, LENA 350.1.13.10 ity of [place] [facility] 4.2.7.2.686 [place] [phone] [address] 2020-02-25 2020-02-25 Art Teacher Vt-Lab [facility] 1.2.840.114 [id number] Univers 16:14:01 16:29:01 Visit Love Childress 350.1.13.1 0 [place] [phone] [facility] [address] DIABETES CLINIC 2020-02-25 2020-02-25 Office [place] [facility] 1.2.798.594 [id number] Univers 15:03:42 16:11:42 Visit Love LOPEZ 350.1.13.10 [place] [phone] [facility] [address] DIABETES CLINIC 2020-02-25 2020-02-25 Outpatient [facility] [id number] Univers 15:30:00 15:30:00 LOVE ity of [facility] 2020-02-17 2020-02-17 Transition Pat Newton 1.2.840.114 [id number] Univers 00:00:00 00:00:00 of Care Raven Richard 350.1.13.10 it y of [place] [phone] [facility] [address] 2020-02-11 2020-02-14 Hospital Bonilla Zach [facility] 1.2.840.1 14 [id number] Univers 09:16:15 17:50:00 Encounter Don Saunders 350.1.13.10 ity of [place] [phone] [facility] [address] 2020-02-11 2020-02-11 Orders Doctor GONZALEZ 1.2.840.114 [id number] Univers 00:00:00 00:00:00 Only Unassigned, LENA 350.1.13.10 ity of [place] [facility] 4.2.7.2.686 [place] [phone] [facility] [address] 2019-12-04 2019-12-04 Telephone Zeus [facility] 1.2.860.699 [id number] Univers 00:00:00 00:00:00 Jatinder Boucher 350.1.13.10 i ty [place] [phone] Ms dical nal 044 [facility] 2019-12-02 2019-12-02 Orders Doctor GONZALEZ 1.2.840.114 [id number] Univers 00:00:00 00:00:00 Only Unassigned, LENA 350.1.13.10 ity of [facility] 4.2.7.2.686 [facility] [phone] [facility] [address] 2019-11-16 2019-11-16 Emergency E ANNA, MHBL MHBL 7506 MHBL 13:42:00 18:35:00 SANDEE 2019-04-18 2019-04-18 Emergency Migel, [facility] 1.2.515.349 [id number] Univers 17:33:55 18:19:00 Quinton A Ivon 350.1.13.10 i ty of [place] 4.2.7.2.686 [facility] [phone] [facility] [address] 2018-10-15 2018-10-15 Outpatient MHIE MHIE [id number] Memoria 09:45:00 09:45:00 06 susan Jane 2018-07-16 2018-07-16 Outpatient MHIE MHIE [id number] Memoria 14:35:00 14:35:00 05 susan Jane 2018-04-16 2018-04-16 Outpatient MHIE MHIE [id number] Memoria 14:35:00 14:35:00 04 susan Jane 2016-09-28 2016-09-28 Outpatient MHIE MHIE [id number] Memoria 11:30:00 11:30:00 03 susan Jane 2016-09-28 2016-09-28 Outpatient MHIE MHIE [id number] Memoria 11:00:00 11:00:00 02 susan Jane 2016-06-30 2016-06-30 Outpatient MHIE MHIE [id number] Memoria 15:45:00 15:45:00 01 susan Jane 2015-07-07 2015-07-08 Inpatient [facility] [id number] Memoria 13:51:00 20:00:00 marco antonio Jane 04 [facility] 2015-07-07 2015-07-08 Outpatient Kody Valdez MHSE MHSE [id number] 07:51:00 14:00:00 Juliapallavi Ramirez 2014-12-05 2014-12-08 Inpatient nullFlavo [facility] [id number] Memoria 22:23:00 23:15:00 marco antonio Jane 29 [facility] 2014-12-05 2014-12-08 Outpatient [place], 2.16.840. 2.16.840.1. 4 [id number] 17:23:00 18:15:00 Valerie 1.405857. [id number] 29 Marisol 3.615.0.1 5.0.227 00 0522-05-08 2014-12-05 OBS Day nullFlavo [facility] [id number] Memoria 18:45:00 18:45:00 Surgery r Leopold 03 [facility] 2014-12-05 2014-12-05 Outpatient nullFlavo [facility] [id number] Memoria 16:27:00 16:27:00 r Buck 28 [facility] 2014-12-05 2014-12-05 Outpatient [place], 2.16.840. 2.16.840.1. 4 [id number] 13:45:00 13:45:00 Valerie 1.497623. [id number] 03 Marisol 3.615.0.1 5.0.301 53 2774-05-08 2014-12-05 Outpatient [place], 2.16.840. 2.16.840.1. 4 [id number] 11:27:00 11:27:00 Valerie 1.246833. [id number] 28 Marisol 3.615.0.1 5.0.994 91 2436-04-08 2014-11-05 [facility] [id number] Memoria 14:00:00 20:44:00 Surgery r Leopold 02 [facility] 2014-11-05 2014-11-05 Outpatient [place], 2.16.840. 2.16.840.1. 4 [id number] 09:00:00 15:44:00 Valerie 1.397565. [id number] 02 Marisol 3.615.0.1 5.0.349 82 8920-03-27 2014-10-31 [facility] [id number] Memoria 04:56:00 21:35:00 r Leopold 85 [facility] 2014-10-23 2014-10-31 Outpatient [facility], 2.16.840. 2.16.840.1. 4 [id number] 23:56:00 16:35:00 Agadadaleticia 1.225547. [id number] 3.615.0.1 5.0.812 25 9517-02-10 2014-09-11 Inpatient [facility] [id number] Memoria 03:13:00 21:20:00 r Leopold 40 l [facility] 2014-09-08 2014-09-11 Outpatient Nelson, 2.16.840. 2.16.840.1. 3 [id number] 21:13:00 15:20:00 Noemy Julia 1.191928. [id number] 40 3.615.0.1 5.0.790 55 3406-02-10 2014-09-09 [facility] [id number] Memoria 01:20:00 01:20:00 Emergency r [address] 2014-09-08 2014-09-08 Outpatient Duran, 2.16.840. 2.16.840.1 . [id number] 19:20:00 19:20:00 Rebecca 1.316717. [id number] 00 Vickie 3.615.0.1 5.0.193 04 2046-02-04 2014-09-03 OBS Day [facility] [id number] Memoria 11:53:00 16:33:00 Surgery r Leopold 01 [facility] 2014-09-03 2014-09-03 Outpatient [place], 2.16.840. 2.16.840.1. 4 [id number] 05:53:00 10:33:00 Merlin Templeton 1.990256. [id number] 01 3.615.0.1 5.0.079 76 7221-05-17 2012-12-21 Inpatient [facility] 45 [id number] Memoria 17:04:00 13:15:[address] Results Test Description Test Time Test Comments Results Result Comments Source POC-Glucose meter 2022-12-09 00:10:43 Test Item Value Reference Range Interpretation Comme nts POC-Glucose Meter (test code = 155 mg/dL 70-110 H : TESTED AT [facility] [address] [place] [address] 1538) [place] [address]: Campus Security Officer/Techni jr ID = [id number] for Brenna Callawayy Lab Interpretation (test code = Abnormal 25184-5) [facility] [id number] 00:10:43 Test Item Value Reference Range Interpretation Comments POC-Glucose Meter (test 155 mg/dL 70-110 H : TE STED AT [facility] code = 1538) [address] [place] [address]: Campus Security Officer/Techni jr ID = [id number] for Brenna Callawayy Lab Interpretation (test Abnormal code = 41276-9) [facility] [id number] 00:10:43 Test Item Value Reference Range Interpretation Comments POC-Glucose Meter (test 155 mg/dL 70-110 H : [facility] [address] [place] [address]: Campus Security Officer/Techni jr ID = [id number] for Brenna Callawayy Lab Interpretation (test Abnormal code = 42984-1) [facility] [id number] 00:10:43 Test Item Value Reference Range Interpretation Comments POC-Glucose Meter (test 155 mg/dL 70-110 H : TE STED AT [facility] code = 1538) [address] [place] [address]: Campus Security Officer/Techni jr ID = [id number] for Nilton, Leidy Lab Interpretation (test Abnormal code = 39472-4) [facility] [id number] 00:10:43 Test Item Value Reference Range Interpretation Comments POC-Glucose Meter (test 155 mg/dL 70-110 H : TE STED AT [facility] code = 1538) [address] [place] [address]: Campus Security Officer/Techni jr ID = [id number] for Callaway, Leidy Lab Interpretation (test Abnormal code = 94698-2) [facility] [id number] 00:10:43 Test Item Value Reference Range Interpretation Comments POC-Glucose Meter (test 155 mg/dL 70-110 H : TE STED AT [facility] code = 1538) [address] [place] [address]: Campus Security Officer/Techni jr ID = [id number] for Brenna Callawayy Lab Interpretation (test Abnormal code = 54297-6) [facility] [id number] 00:10:43 Test Item Value Reference Range Interpretation Comments POC-Glucose Meter (test 155 mg/dL 70-110 H : TE STED AT [facility] code = 1538) [address] [place] [address]: Campus Security Officer/Techni jr ID = [id number] for Brenna Callawayy Lab Interpretation (test Abnormal code = 16025-3) [facility] [id number] 00:10:43 Test Item Value Reference Range Interpretation Comments POC-Glucose Meter (test 155 mg/dL 70-110 H : TE STED AT [facility] code = 1538) [address] [place] [address]: Campus Security Officer/Techni jr ID = [id number] for Brenna Callawayy Lab Interpretation (test Abnormal code = 95207-9) [facility] [id number] 00:10:43 Test Item Value Reference Range Interpretation Comments POC-Glucose Meter (test 155 mg/dL 70-110 H : TE STED AT [facility] code = 1538) [address] [place] [address]: Campus Security Officer/Techni jr ID = [id number] for Brenna Callawayy Lab Interpretation (test Abnormal code = 23498-1) [facility] [id number] 00:10:43 Test Item Value Reference Range Interpretation Comments POC-Glucose Meter (test 155 mg/dL 70-110 H : TE STED AT [facility] code = 1538) [address] [place], [place] [address]: Campus Security Officer/Techni jr ID = [id number] for Brenna Callawayy Lab Interpretation (test Abnormal code = 78655-8) [facility] [id number] 00:10:43 Test Item Value Reference Range Interpretation Comments POC-Glucose Meter (test 155 mg/dL 70-110 H : TE STED AT [facility] code = 1538) [address] [place] [address]: Campus Security Officer/Techni jr ID = [id number] for Brenna Callawayy Lab Interpretation (test Abnormal code = 59936-8) [facility] [id number] 00:10:43 Test Item Value Reference Range Interpretation Comments POC-Glucose Meter (test 155 mg/dL 70-110 H : TE STED AT [facility] code = 1538) [address] [place] [address]: Campus Security Officer/Techni jr ID = [id number] for Brenna Callawayy Lab Interpretation (test Abnormal code = 29365-7) [facility] [id number] 00:10:43 Test Item Value Reference Range Interpretation Comments POC-Glucose Meter (test 155 mg/dL 70-110 H : TE STED AT [facility] code = 1538) [address] [place] [address]: Campus Security Officer/Techni jr ID = [id number] for Brenna Callawayy Lab Interpretation (test Abnormal code = 42629-6) [facility] [id number] 00:10:43 Test Item Value Reference Range Interpretation Comments POC-Glucose Meter (test 155 mg/dL 70-110 H : TE STED AT [facility] code = 1538) [address] [place] [address]: Campus Security Officer/Techni jr ID = [id number] for Brenna Callawayy Lab Interpretation (test Abnormal code = 99058-6) [facility] [id number] 00:10:43 Test Item Value Reference Range Interpretation Comments POC-Glucose Meter (test 155 mg/dL 70-110 H : TE STED AT [facility] code = 1538) [address] [place], [place] [address]: Campus Security Officer/Techni jr ID = [id number] for Brenna Callawayy Lab Interpretation (test Abnormal code = 85957-7) [facility] [id number] 00:10:43 Test Item Value Reference Range Interpretation Comments POC-Glucose Meter (test 155 mg/dL 70-110 H : TE STED AT [facility] code = 1538) [address] [facility] [address]: Campus Security Officer/Techni jr ID = [id number] for CallawayLeidy Lab Interpretation (test Abnormal code = 76657-1) [facility] CenterPOCT-GLUCOSE [id number] 00:10:43 Test Item Value Reference Range Interpretation Comments POC-GLUCOSE METER 155 mg/dL 70-110 H : TESTED A T [facility] 1317 (BEAKER) (test code [facility], = 1538) [place] [address]48: Campus Security Officer/Techni jr ID = [id number] for Jose Angel prince Leidy POCT-GLUCOSE [id number] 00:10:38 Test Item Value Reference Range Interpretation Comments POC-GLUCOSE METER 164 mg/dL 70-110 H : TESTED A T [facility] 1317 (BEAKER) (test code [facility], = 1538) [place] [address]1148: Campus Security Officer/Techni jr ID = [id number] for Nadia Galvan BASIC METABOLIC [id number] 06:50:20 Test Item Value Reference Range Interpretation Comments SODIUM (BEAKER) 145 meq/L 135-148 (test code = 381) POTASSIUM 4.9 meq/L 3.6-5.5 (BEAKER) (test code = 379) CHLORIDE (BEAKER) 111 meq/L 98-106 H (test code = 382) CO2 (BEAKER) 25 meq/L 20-29 (test code = 355) BLOOD UREA 45 mg/dL 10-26 H NITROGEN (BEAKER) (test code = 354) CREATININE 2.64 mg/dL 0.50-1.20 H (BEAKER) (test code = 358) GLUCOSE RANDOM 183 mg/dL 70-110 H (BEAKER) (test code = 652) CALCIUM (BEAKER) 8.7 mg/dL 8.5-10.5 (test code = 697) EGFR (BEAKER) 28 Interpretatio n of eGFR (test code = mL/min/1.73 values Stage De scription 1092) sq m Result G1 Mary Jo l or high >=90 G2 Mildly decreased 60-89 G3a Mild ly to moderately 45-5 9 G3b Moderately to s everely 30-44 G4 Severl y decreased 15-29 G5 Kidney failure <15Reported eGF R is based on the CKD-EPI 2020 equation that d oes not use a race coefficientEsti mated GFR is not as accur ate as Creatinine Genevieve naidu in predicting glom erular filtration rate . Estimated GFR is not appl icable for dialysis patien ts Campus Security Officer ID - [id number] ID - [id number] ID - [id number] ID - [id number] ID - [id number] ID - [id number] ID - [id number] ID - [id number] ID - STIU09Mabdlgyy ID - [id number] 06:44:55 Test Item Value Reference Range Interpretation Comments MAGNESIUM (BEAKER) (test code = 2.1 mg/dL 1.5-3.0 627) Campus Security Officer ID - [id number] ID - [id number] ID - [id number] ID - [id number] 06:42:09 Test Item Value Reference Range Interpretation Comments PHOSPHORUS (BEAKER) (test code = 3.5 mg/dL 2.5-4.5 604) Campus Security Officer ID - [id number] W/PLT COUNT & AUTO [id number] 06:27:09 Test Item Value Reference Range Interpretation Comments WHITE BLOOD CELL COUNT (BEAKER) 15.4 K/ L 4.0-10.0 H (test code = 775) RED BLOOD CELL COUNT (BEAKER) 3.44 M/ L 4.20-5.80 L (test code = 761) HEMOGLOBIN (BEAKER) (test code = 8.7 GM/DL 13.0-16.8 L 410) HEMATOCRIT (BEAKER) (test code = 28.9 % 36.0-50.0 L 411) MEAN CORPUSCULAR VOLUME (BEAKER) 84 fL 82-99 (test code = 753) MEAN CORPUSCULAR HEMOGLOBIN 25.3 pg 27.0-33.0 L (BEAKER) (test code = 751) MEAN CORPUSCULAR HEMOGLOBIN CONC 30.1 GM/DL 32.0-36.0 L (BEAKER) (test code = 752) RED CELL DISTRIBUTION WIDTH 17.2 % 12.0-15.0 H (BEAKER) (test code = 412) PLATELET COUNT (BEAKER) (test 515 K/CU MM 150-430 H code = 756) MEAN PLATELET VOLUME (BEAKER) 11.0 fL 6.0-11.5 (test code = 754) NUCLEATED RED BLOOD CELLS 0 /100 WBC 0-0 (BEAKER) (test code = 413) NEUTROPHILS RELATIVE PERCENT 66 % (BEAKER) (test code = 429) LYMPHOCYTES RELATIVE PERCENT 19 % (BEAKER) (test code = 430) MONOCYTES RELATIVE PERCENT 5 % (BEAKER) (test code = 431) EOSINOPHILS RELATIVE PERCENT 7 % (BEAKER) (test code = 432) BASOPHILS RELATIVE PERCENT 1 % (BEAKER) (test code = 437) NEUTROPHILS ABSOLUTE COUNT 10.14 K/ L 1.80-8.00 H (BEAKER) (test code = 670) LYMPHOCYTES ABSOLUTE COUNT 2.93 K/ L 1.48-4.50 (BEAKER) (test code = 414) MONOCYTES ABSOLUTE COUNT (BEAKER) 0.81 K/ L 0.00-1.30 (test code = 415) EOSINOPHILS ABSOLUTE COUNT 1.05 K/ L 0.00-0.50 H (BEAKER) (test code = 416) BASOPHILS ABSOLUTE COUNT (BEAKER) 0.07 K/ L 0.00-0.20 (test code = 417) IMMATURE GRANULOCYTES-RELATIVE 2.70 % 0.00-0.00 H PERCENT (BEAKER) (test code = 2801) POCT-GLUCOSE [id number] 01:26:06 Test Item Value Reference Range Interpretation Comments POC-GLUCOSE METER 226 mg/dL 70-110 H : TESTED A T [facility] 1317 (BEAKER) (test code [facility], = 1538) [place] [id number]: Campus Security Officer/Techni jr ID = [id number] for Nadia Galvan POCT-GLUCOSE [id number] 18:59:16 Test Item Value Reference Range Interpretation Comments POC-GLUCOSE METER 198 mg/dL 70-110 H : TESTED A T [facility]SL 1317 (BEAKER) (test code [facility] [place], = 1538) [place] [id number]: Campus Security Officer/Techni jr ID = [id number] for Leidy Forte POCT-GLUCOSE [id number] 18:59:09 Test Item Value Reference Range Interpretation Comments POC-GLUCOSE METER 242 mg/dL 70-110 H : TESTED A T [facility] 1317 (BEAKER) (test code [address], = 1538) [facility] [id number]: Campus Security Officer/Techni jr ID = [id number] for Leidy Forte POCT-GLUCOSE [id number] 18:58:25 Test Item Value Reference Range Interpretation Comments POC-GLUCOSE METER 187 mg/dL 70-110 H : TESTED A T [facility] 1317 (BEAKER) (test code [address], = 1538) [facility] 77 478: Campus Security Officer/Techni jr ID = [id number] for Nadia Galvan BLOOD [id number] 07:00:51 Test Item Value Reference Range Interpretation Comments CULTURE (BEAKER) (test No growth in 5 days code = 1095) BLOOD [id number] 07:00:50 Test Item Value Reference Range Interpretation Comments CULTURE (BEAKER) (test No growth in 5 days code = 1095) CBC W/PLT COUNT & AUTO [id number] 04:51:18 Test Item Value Reference Range Interpretation Comments WHITE BLOOD CELL COUNT (BEAKER) 16.9 K/ L 4.0-10.0 H (test code = 775) RED BLOOD CELL COUNT (BEAKER) 3.64 M/ L 4.20-5.80 L (test code = 761) HEMOGLOBIN (BEAKER) (test code = 9.2 GM/DL 13.0-16.8 L 410) HEMATOCRIT (BEAKER) (test code = 29.7 % 36.0-50.0 L 411) MEAN CORPUSCULAR VOLUME (BEAKER) 82 fL 82-99 (test code = 753) MEAN CORPUSCULAR HEMOGLOBIN 25.3 pg 27.0-33.0 L (BEAKER) (test code = 751) MEAN CORPUSCULAR HEMOGLOBIN CONC 31.0 GM/DL 32.0-36.0 L (BEAKER) (test code = 752) RED CELL DISTRIBUTION WIDTH 17.2 % 12.0-15.0 H (BEAKER) (test code = 412) PLATELET COUNT (BEAKER) (test 394 K/CU MM 150-430 code = 756) MEAN PLATELET VOLUME (BEAKER) 10.7 fL 6.0-11.5 (test code = 754) NUCLEATED RED BLOOD CELLS 0 /100 WBC 0-0 (BEAKER) (test code = 413) NEUTROPHILS RELATIVE PERCENT 67 % (BEAKER) (test code = 429) LYMPHOCYTES RELATIVE PERCENT 17 % (BEAKER) (test code = 430) MONOCYTES RELATIVE PERCENT 6 % (BEAKER) (test code = 431) EOSINOPHILS RELATIVE PERCENT 7 % (BEAKER) (test code = 432) BASOPHILS RELATIVE PERCENT 1 % (BEAKER) (test code = 437) NEUTROPHILS ABSOLUTE COUNT 11.27 K/ L 1.80-8.00 H (BEAKER) (test code = 670) LYMPHOCYTES ABSOLUTE COUNT 2.83 K/ L 1.48-4.50 (BEAKER) (test code = 414) MONOCYTES ABSOLUTE COUNT (BEAKER) 0.97 K/ L 0.00-1.30 (test code = 415) EOSINOPHILS ABSOLUTE COUNT 1.10 K/ L 0.00-0.50 H (BEAKER) (test code = 416) BASOPHILS ABSOLUTE COUNT (BEAKER) 0.09 K/ L 0.00-0.20 (test code = 417) IMMATURE GRANULOCYTES-RELATIVE 3.80 % 0.00-0.00 H PERCENT (BEAKER) (test code = 2801) [id number] 04:45:24 Test Item Value Reference Range Interpretation Comments MAGNESIUM (BEAKER) (test code = 2.0 mg/dL 1.5-3.0 627) Campus Security Officer ID - leviotaOperator ID - leviotaOperator ID - leviotaOperator ID - leviotaBASIC METABOLIC [id number] 04:45:23 Test Item Value Reference Range Interpretation Comments SODIUM (BEAKER) 150 meq/L 135-148 H (test code = 381) POTASSIUM 4.6 meq/L 3.6-5.5 (BEAKER) (test code = 379) CHLORIDE (BEAKER) 115 meq/L 98-106 H (test code = 382) CO2 (BEAKER) 25 meq/L 20-29 (test code = 355) BLOOD UREA 50 mg/dL 10-26 H NITROGEN (BEAKER) (test code = 354) CREATININE 2.75 mg/dL 0.50-1.20 H (BEAKER) (test code = 358) GLUCOSE RANDOM 181 mg/dL 70-110 H (RAVEN) (test code = 652) CALCIUM (RAVEN) 8.8 mg/dL 8.5-10.5 (test code = 697) EGFR (RAVEN) 27 Interpretatio n of eGFR (test code = mL/min/1.73 values Stage De scription 1092) sq m Result G1 Mary Jo l or high >=90 G2 Mildly decreased 60-89 G3a Mildl y to moderately 45-5 9 G3b Moderately to s everely 30-44 G4 Severl y decreased 15-29 G5 Kidney failure <15Reported eGF R is based on the CKD-EPI 2020 equation that d oes not use a race coefficientEsti mated GFR is not as accur ate as Creatinine Genevieve naidu in predicting glom erular filtration rate . Estimated GFR is not appl icable for dialysis patien ts Campus Security Officer ID - leviotaOperator ID - leviotaOperator ID - leviotaOperator ID - leviotaOperator ID - leviotaOperator ID - leviotaOperator ID - leviotaOperator ID - leviotaOperator ID - leviotaOperator ID - [id number] 04:42:43 Test Item Value Reference Range Interpretation Comments PHOSPHORUS (RAVEN) (test code = 2.9 mg/dL 2.5-4.5 604) Campus Security Officer ID - leviotaPOCT-GLUCOSE [id number] 01:54:05 Test Item Value Reference Range Interpretation Comments POC-GLUCOSE METER 214 mg/dL 70-110 H : TESTED A T [facility] [address] (3CLogic) (test code [address], = 1538) [place] [id number]: Campus Security Officer/Techni jr ID = [id number] for Jennifer Mathews POCT-GLUCOSE [id number] 16:19:30 Test Item Value Reference Range Interpretation Comments POC-GLUCOSE METER 308 mg/dL 70-110 H : TESTED A T [facility] [address] (BEAnonymous You) (test code [address], = 1538) [place] [address]: Campus Security Officer/Techni jr ID = [id number] for Brenda Hearte POCT-GLUCOSE [id number] 12:34:45 Test Item Value Reference Range Interpretation Comments POC-GLUCOSE METER 325 mg/dL 70-110 H : TESTED A T [facility] [address] (BEAKER) (test code [facility] [place], = 1538) [place] [id number] 478: Campus Security Officer/Techni jr ID = [id number] for Brandi Heart POC-Glucose [id number] 06:52:20 Test Item Value Reference Range Interpretation Comments POC-Glucose Meter (test 302 mg/dL 70-110 H : TE STED AT [facility] code = 1538) [address] [place] 396068: Campus Security Officer/Techni jr ID = [id number] for Nadia Monet Lab Interpretation (test Abnormal code = 41120-9) [facility] [id number] 06:52:20 Test Item Value Reference Range Interpretation Comments POC-Glucose Meter (test 302 mg/dL 70-110 H : TE STED AT [facility] code = 1538) [address] [place] 396068: Campus Security Officer/Techni jr ID = [id number] for Nadia Monet Lab Interpretation (test Abnormal code = 36235-3) [facility]-GLUCOSE [id number] 06:52:20 Test Item Value Reference Range Interpretation Comments POC-GLUCOSE METER 302 mg/dL 70-110 H : TESTED A T [facility] [address] (BEAKER) (test code [address] [facility] [facility], = 1538) [place] [id number]: Campus Security Officer/Techni jr ID = [id number] for Nadia Galvan BASIC METABOLIC [id number] 04:08:51 Test Item Value Reference Range Interpretation Comments SODIUM (BEAKER) 148 meq/L 135-148 (test code = 381) POTASSIUM 4.5 meq/L 3.6-5.5 (BEAKER) (test code = 379) CHLORIDE (BEAKER) 114 meq/L 98-106 H (test code = 382) CO2 (BEAKER) 26 meq/L 20-29 (test code = 355) BLOOD UREA 60 mg/dL 10-26 H NITROGEN (BEAKER) (test code = 354) CREATININE 2.91 mg/dL 0.50-1.20 H (BEAKER) (test code = 358) GLUCOSE RANDOM 313 mg/dL 70-110 H (BEAKER) (test code = 652) CALCIUM (BEAKER) 8.6 mg/dL 8.5-10.5 (test code = 697) EGFR (BEAKER) 25 Interpretati on of eGFR (test code = mL/min/1.73 values Stage De scription 1092) sq m Result G1 Mary Jo l or high >=90 G2 Mildly decreased 60-89 G3a Mildl y to moderately 45- 59 G3b Moderately to s everely 30-44 G4 Severl y decreased 15-29 G5 Kidney failure <15Reported eGF R is based on the CKD-EPI 2020 equation that d oes not use a race coefficientEsti mated GFR is not as accur ate as Creatinine Genevieve elysia in predicting glom erular filtration rate . Estimated GFR is not appl icable for dialysis patien ts Campus Security Officer ID - [id number] ID - [id number] ID - BNSOFNZJZ721Ofdagxzp ID - [id number] ID - JAOKHRACR412Stnghroc ID - LOTNNQGGQ397Rtophjvb ID - SIMMFLVHT302Azyymcdw ID - VHUWPYRVJ981Zdpupsim ID - VWZSGCUDR238Zizpzers ID - [id number] 04:08:40 Test Item Value Reference Range Interpretation Comments MAGNESIUM (BEAKER) (test code = 2.1 mg/dL 1.5-3.0 627) Campus Security Officer ID - [id number] ID - [id number] ID - [id number] ID - [id number] 04:05:54 Test Item Value Reference Range Interpretation Comments PHOSPHORUS (BEAKER) (test code = 2.9 mg/dL 2.5-4.5 604) Campus Security Officer ID - [id number] W/PLT COUNT & AUTO [id number] 04:00:54 Test Item Value Reference Range Interpretation Comments WHITE BLOOD CELL COUNT (BEAKER) 15.8 K/ L 4.0-10.0 H (test code = 775) RED BLOOD CELL COUNT (BEAKER) 3.55 M/ L 4.20-5.80 L (test code = 761) HEMOGLOBIN (BEAKER) (test code = 9.1 GM/DL 13.0-16.8 L 410) HEMATOCRIT (BEAKER) (test code = 29.5 % 36.0-50.0 L 411) MEAN CORPUSCULAR VOLUME (BEAKER) 83 fL 82-99 (test code = 753) MEAN CORPUSCULAR HEMOGLOBIN 25.6 pg 27.0-33.0 L (BEAKER) (test code = 751) MEAN CORPUSCULAR HEMOGLOBIN CONC 30.8 GM/DL 32.0-36.0 L (BEAKER) (test code = 752) RED CELL DISTRIBUTION WIDTH 17.3 % 12.0-15.0 H (BEAKER) (test code = 412) PLATELET COUNT (BEAKER) (test 359 K/CU MM 150-430 code = 756) MEAN PLATELET VOLUME (BEAKER) 11.0 fL 6.0-11.5 (test code = 754) NUCLEATED RED BLOOD CELLS 0 /100 WBC 0-0 (BEAKER) (test code = 413) NEUTROPHILS RELATIVE PERCENT 65 % (BEAKER) (test code = 429) LYMPHOCYTES RELATIVE PERCENT 18 % (BEAKER) (test code = 430) MONOCYTES RELATIVE PERCENT 8 % (BEAKER) (test code = 431) EOSINOPHILS RELATIVE PERCENT 5 % (BEAKER) (test code = 432) BASOPHILS RELATIVE PERCENT 1 % (BEAKER) (test code = 437) NEUTROPHILS ABSOLUTE COUNT 10.23 K/ L 1.80-8.00 H (BEAKER) (test code = 670) LYMPHOCYTES ABSOLUTE COUNT 2.78 K/ L 1.48-4.50 (BEAKER) (test code = 414) MONOCYTES ABSOLUTE COUNT (BEAKER) 1.22 K/ L 0.00-1.30 (test code = 415) EOSINOPHILS ABSOLUTE COUNT 0.75 K/ L 0.00-0.50 H (BEAKER) (test code = 416) BASOPHILS ABSOLUTE COUNT (BEAKER) 0.09 K/ L 0.00-0.20 (test code = 417) IMMATURE GRANULOCYTES-RELATIVE 4.80 % 0.00-0.00 H PERCENT (BEAKER) (test code = 2801) POCT-GLUCOSE [id number] 00:19:32 Test Item Value Reference Range Interpretation Comments POC-GLUCOSE METER 333 mg/dL 70-110 H : TESTED A T [facility] (BEAKER) (test code [address], = 1538) [place] [address] 478: Campus Security Officer/Techni jr ID = [id number] for Nadia Galvan POCT-GLUCOSE [id number] 16:12:22 Test Item Value Reference Range Interpretation Comments POC-GLUCOSE METER 246 mg/dL 70-110 H : TESTED A T [facility] [address] (BEAKER) (test code [address], = 1538) [place] [address] 478: Campus Security Officer/Techni jr ID = [id number] for Brandi Heart BLOOD [id number] 15:33:40 Test Item Value Reference Range Interpretation Comments CULTURE (BEAKER) A From Aerobi c (test code = 1095) Bottle On ly Gemella bergeri GRAM STAIN RESULT From aerobic (BEAKER) (test bottle only: gram code = 1123) positive cocci in clusters BLOOD [id number] 15:33:06 Test Item Value Reference Range Interpretation Comments CULTURE (BEAKER) (test KLEBSIELLA A From Anaerobic code = 1095) PNEUMONIAE SSP Bottle Only PNEUMONIAE Klebsiella pneumoniae ssp pneumoniae Amikacin (test code = S 1) Ampicillin + Sulbactam R (test code = 6) Aztreonam (test code = I 32) Cefazolin (test code = R 9) Cefepime (test code = S 51) Cefoxitin (test code = S 68) Ceftazidime (test code S = 27) Ceftriaxone (test code R = 52) Ertapenem (test code = S 38) Gentamicin (test code = S 18) Levofloxacin (test code S = 22) Meropenem (test code = S 34) Nitrofurantoin (test I code = 23) Piperacillin + S Tazobactam (test code = 29) Tetracycline (test code S = 2) Tigecycline (test code S = 133) Tobramycin (test code = R 25) Trimethoprim + R Sulfamethoxazole (test code = 47) GRAM STAIN RESULT From anaerobic (BEAKER) (test code = bottle only: 1123) gram negative rods POC-Glucose [id number] 12:08:11 Test Item Value Reference Range Interpretation Comments POC-Glucose Meter (test 306 mg/dL 70-110 H : TE STED AT [facility] code = 1538) [address] [place] [id number]: Campus Security Officer/Techni jr ID = [id number] for Stephane, [place] Lab Interpretation (test Abnormal code = 56165-8) [facility] [id number] 12:08:11 Test Item Value Reference Range Interpretation Comments POC-Glucose Meter (test 306 mg/dL 70-110 H : TE STED AT [facility] code = 1538) [address] [place], [place] [address]: Campus Security Officer/Techni jr ID = [id number] for Stephane [place] Lab Interpretation (test Abnormal code = 76626-2) [facility] [id number] 12:08:11 Test Item Value Reference Range Interpretation Comments POC-Glucose Meter (test 306 mg/dL 70-110 H : TE STED AT [facility] code = 1538) [address] [place], [place] [address]: Campus Security Officer/Techni jr ID = [id number] for Stephane, [place] Lab Interpretation (test Abnormal code = 66241-6) [facility] [id number] 12:08:11 Test Item Value Reference Range Interpretation Comments POC-Glucose Meter (test 306 mg/dL 70-110 H : [facility] [address] [place], [place] [address]: Campus Security Officer/Techni jr ID = [id number] for Stephane [place] Lab Interpretation (test Abnormal code = 86091-4) [facility]-GLUCOSE [id number] 12:08:11 Test Item Value Reference Range Interpretation Comments POC-GLUCOSE METER 306 mg/dL 70-110 H : TESTED A T [facility] [address] (BEAKER) (test code [address] [facility], = 1538) [place] [id number]: Campus Security Officer/Techni jr ID = [id number] for Brandi Heart POCT-GLUCOSE [id number] 08:14:52 Test Item Value Reference Range Interpretation Comments POC-GLUCOSE METER 213 mg/dL 70-110 H : TESTED A T [facility] [address] (BEAKER) (test code [address] [facility], = 1538) [place] [address]: Campus Security Officer/Techni jr ID = [id number] for Nadia Galvan (MANUAL DIFFERENTIAL)2022-12-05 05:59:44 Test Item Value Reference Range Interpretation Comments NEUTROPHILS - REL (DIFF) (BEAKER) 63 % (test code = 1359) LYMPHOCYTES - REL (DIFF) (BEAKER) 18 % (test code = 1360) MONOCYTES - REL (DIFF) (BEAKER) 12 % (test code = 1361) EOSINOPHILS - REL (DIFF) (BEAKER) 6 % (test code = 1362) BANDS - REL (DIFF) (BEAKER) (test 1 % 0-10 code = 1348) NEUTROPHILS - ABS (DIFF) (BEAKER) 10.02 K/ L 1.80-8.00 H (test code = 1365) LYMPHOCYTES - ABS (DIFF) (BEAKER) 2.86 K/ L 1.48-4.50 (test code = 1366) MONOCYTES - ABS (DIFF) (BEAKER) 1.91 K/ L 0.00-1.30 H (test code = 1367) EOSINOPHILS - ABS (DIFF) (BEAKER) 0.95 K/ L 0.00-0.50 H (test code = 1368) BANDS-ABS (DIFF) (BEAKER) (test 0.2 K/ L 0.0-0.8 code = 1349) TOTAL COUNTED (BEAKER) (test code 100 = 1351) BANDS + SEGMENTED NEUTROPHILS 10.18 (BEAKER) (test code = 1352) MANUAL NRBC PER 100 CELLS (BEAKER) 1 /100 WBC 0-0 H (test code = 1353) WBC MORPHOLOGY (BEAKER) (test code Normal = 487) PLT MORPHOLOGY (BEAKER) (test code Normal = 486) RBC MORPHOLOGY (BEAKER) (test code Normal = 762) CBC W/PLT COUNT & AUTO [id number] 05:59:38 Test Item Value Reference Range Interpretation Comments WHITE BLOOD CELL COUNT (BEAKER) 15.9 K/ L 4.0-10.0 H (test code = 775) RED BLOOD CELL COUNT (BEAKER) 3.67 M/ L 4.20-5.80 L (test code = 761) HEMOGLOBIN (BEAKER) (test code = 9.4 GM/DL 13.0-16.8 L 410) HEMATOCRIT (BEAKER) (test code = 29.7 % 36.0-50.0 L 411) MEAN CORPUSCULAR VOLUME (BEAKER) 81 fL 82-99 L (test code = 753) MEAN CORPUSCULAR HEMOGLOBIN 25.6 pg 27.0-33.0 L (BEAKER) (test code = 751) MEAN CORPUSCULAR HEMOGLOBIN CONC 31.6 GM/DL 32.0-36.0 L (BEAKER) (test code = 752) RED CELL DISTRIBUTION WIDTH 17.7 % 12.0-15.0 H (BEAKER) (test code = 412) PLATELET COUNT (BEAKER) (test 332 K/CU MM 150-430 code = 756) MEAN PLATELET VOLUME (BEAKER) 10.7 fL 6.0-11.5 (test code = 754) NUCLEATED RED BLOOD CELLS 0 /100 WBC 0-0 (BEAKER) (test code = 413) BASIC METABOLIC [id number] 05:59:11 Test Item Value Reference Range Interpretation Comments SODIUM (BEAKER) 152 meq/L 135-148 H (test code = 381) POTASSIUM 4.3 meq/L 3.6-5.5 (BEAKER) (test code = 379) CHLORIDE (BEAKER) 114 meq/L 98-106 H (test code = 382) CO2 (BEAKER) 24 meq/L 20-29 (test code = 355) BLOOD UREA 60 mg/dL 10-26 H NITROGEN (BEAKER) (test code = 354) CREATININE 2.99 mg/dL 0.50-1.20 H (BEAKER) (test code = 358) GLUCOSE RANDOM 216 mg/dL 70-110 H (BEAKER) (test code = 652) CALCIUM (BEAKER) 9.0 mg/dL 8.5-10.5 (test code = 697) EGFR (BEAKER) 24 Interpretati on of eGFR (test code = mL/min/1.73 values Stage De scription 1092) sq m Result G1 Mary Jo l or high >=90 G2 Mildly decreased 60-89 G3a Mildl y to moderately 45-5 9 G3b Moderately to s everely 30-44 G4 Severl y decreased 15-29 G5 Kidney failure <15Reported eGF R is based on the CKD-EPI 2020 equation that d oes not use a race coefficientEsti mated GFR is not as accur ate as Creatinine Genevieve naidu in predicting glom erular filtration rate . Estimated GFR is not appl icable for dialysis patien ts Campus Security Officer ID - [id number] ID - [id number] ID - [id number] ID - mxtt07Uutubmrr ID - orob28Mzygzugu ID - xvhb18Bjwuzfad ID - juak51Pnvszciq ID - wqyz14Kxihvfec ID - pcgh45Yjtruudk ID - fruq02HUTPENMIPN LEVEL, [id number] 05:59:00 Test Item Value Reference Range Interpretation Comments VANCOMYCIN TROUGH (BEAKER) (test 20.3 ug/mL 10.0-20.0 H code = 522) Campus Security Officer ID - [id number] 05:56:35 Test Item Value Reference Range Interpretation Comments MAGNESIUM (BEAKER) (test code = 2.1 mg/dL 1.5-3.0 627) Campus Security Officer ID - [id number] ID - bysx08Istijllb ID - sdkr44Qegaaplq ID - [id number] 05:53:54 Test Item Value Reference Range Interpretation Comments PHOSPHORUS (BEAKER) (test code = 3.4 mg/dL 2.5-4.5 604) Campus Security Officer ID - [id number]-ZDZKVUK [id number] 23:58:06 Test Item Value Reference Range Interpretation Comments POC-GLUCOSE METER 309 mg/dL 70-110 H : TESTED A T [facility] [address] (BEAKER) (test code [address], = 1538) [place] [address]: Campus Security Officer/Techni jr ID = [id number] for Nadia Galvan POCT-GLUCOSE [id number] 18:21:56 Test Item Value Reference Range Interpretation Comments POC-GLUCOSE METER 244 mg/dL 70-110 H : TESTED A T [facility] [address] (BEAKER) (test code [address], = 1538) [place] [address]: Campus Security Officer/Techni jr ID = [id number] for Dapr Mariana holden POCT-GLUCOSE [id number] 13:25:33 Test Item Value Reference Range Interpretation Comments POC-GLUCOSE METER 179 mg/dL 70-110 H : TESTED A T [facility] [address] (BEAKER) (test code [address], = 1538) [facility] 77 [address]: Campus Security Officer/Techni jr ID = [id number] for Mariana Epperson POCT-GLUCOSE [id number] 06:39:58 Test Item Value Reference Range Interpretation Comments POC-GLUCOSE METER 312 mg/dL 70-110 H : TESTED A T [facility] [address] (BEAKER) (test code [address], = 1538) [facility] 77 [address]: Campus Security Officer/Techni jr ID = [id number] for Nadia Galvan BASIC METABOLIC [id number] 05:53:12 Test Item Value Reference Range Interpretation Comments SODIUM (BEAKER) 147 meq/L 135-148 (test code = 381) POTASSIUM 4.0 meq/L 3.6-5.5 (BEAKER) (test code = 379) CHLORIDE (BEAKER) 112 meq/L 98-106 H (test code = 382) CO2 (BEAKER) 26 meq/L 20-29 (test code = 355) BLOOD UREA 68 mg/dL 10-26 H NITROGEN (BEAKER) (test code = 354) CREATININE 3.14 mg/dL 0.50-1.20 H (BEAKER) (test code = 358) GLUCOSE RANDOM 278 mg/dL 70-110 H (BEAKER) (test code = 652) CALCIUM (BEAKER) 9.1 mg/dL 8.5-10.5 (test code = 697) EGFR (BEAKER) 23 Interpretati on of eGFR (test code = mL/min/1.73 values Stage De scription 1092) sq m Result G1 Mary Jo l or high >=90 G2 Mildly decreased 60-89 G3a Mildl y to moderately 45-5 9 G3b Moderately to s everely 30-44 G4 Severl y decreased 15-29 G5 Kidney failure <15Reported eGF R is based on the CKD-EPI 2020 equation that d oes not use a race coefficientEsti mated GFR is not as accur ate as Creatinine Genevieve naidu in predicting glom erular filtration rate . Estimated GFR is not appl icable for dialysis patien ts Campus Security Officer ID - [id number] ID - [id number] ID - ZAPHAYTIY570Gaukhkzv ID - PLYDYFMHE194Wrdvtvaw ID - CXTNUQBSM449Uimwaxwn ID - ROMKSQRUO422Byiisdsj ID - VAMZXAATP601Jmirjxvs ID - OKIESMGAO594Hcrmpnee ID - DZSHEQZYP842Yfofvllk ID - [id number] 05:46:02 Test Item Value Reference Range Interpretation Comments MAGNESIUM (BEAKER) (test code = 2.0 mg/dL 1.5-3.0 627) Campus Security Officer ID - [id number] ID - [id number] ID - [id number] ID - [id number] 05:43:39 Test Item Value Reference Range Interpretation Comments PHOSPHORUS (BEAKER) (test code = 1.8 mg/dL 2.5-4.5 L 604) Campus Security Officer ID - [id number] W/PLT COUNT & AUTO [id number] 05:33:07 Test Item Value Reference Range Interpretation Comments WHITE BLOOD CELL COUNT (BEAKER) 16.2 K/ L 4.0-10.0 H (test code = 775) RED BLOOD CELL COUNT (BEAKER) 3.70 M/ L 4.20-5.80 L (test code = 761) HEMOGLOBIN (BEAKER) (test code = 9.4 GM/DL 13.0-16.8 L 410) HEMATOCRIT (BEAKER) (test code = 30.1 % 36.0-50.0 L 411) MEAN CORPUSCULAR VOLUME (BEAKER) 81 fL 82-99 L (test code = 753) MEAN CORPUSCULAR HEMOGLOBIN 25.4 pg 27.0-33.0 L (BEAKER) (test code = 751) MEAN CORPUSCULAR HEMOGLOBIN CONC 31.2 GM/DL 32.0-36.0 L (BEAKER) (test code = 752) RED CELL DISTRIBUTION WIDTH 17.4 % 12.0-15.0 H (BEAKER) (test code = 412) PLATELET COUNT (BEAKER) (test 307 K/CU MM 150-430 code = 756) MEAN PLATELET VOLUME (BEAKER) 11.0 fL 6.0-11.5 (test code = 754) NUCLEATED RED BLOOD CELLS 0 /100 WBC 0-0 (BEAKER) (test code = 413) NEUTROPHILS RELATIVE PERCENT 67 % (BEAKER) (test code = 429) LYMPHOCYTES RELATIVE PERCENT 15 % (BEAKER) (test code = 430) MONOCYTES RELATIVE PERCENT 6 % (BEAKER) (test code = 431) EOSINOPHILS RELATIVE PERCENT 6 % (BEAKER) (test code = 432) BASOPHILS RELATIVE PERCENT 1 % (BEAKER) (test code = 437) NEUTROPHILS ABSOLUTE COUNT 10.91 K/ L 1.80-8.00 H (BEAKER) (test code = 670) LYMPHOCYTES ABSOLUTE COUNT 2.37 K/ L 1.48-4.50 (BEAKER) (test code = 414) MONOCYTES ABSOLUTE COUNT (BEAKER) 0.96 K/ L 0.00-1.30 (test code = 415) EOSINOPHILS ABSOLUTE COUNT 0.95 K/ L 0.00-0.50 H (BEAKER) (test code = 416) BASOPHILS ABSOLUTE COUNT (BEAKER) 0.14 K/ L 0.00-0.20 (test code = 417) IMMATURE GRANULOCYTES-RELATIVE 5.20 % 0.00-0.00 H PERCENT (BEAKER) (test code = 2801) POCT-GLUCOSE [id number] 00:14:04 Test Item Value Reference Range Interpretation Comments POC-GLUCOSE METER 355 mg/dL 70-110 H : TESTED A T [facility] 1317 (BEAKER) (test code [facility], = 1538) [place] [id number]: Campus Security Officer/Techni jr ID = [id number] for Yusuf tha Nadia POCT-GLUCOSE [id number] 18:34:58 Test Item Value Reference Range Interpretation Comments POC-GLUCOSE METER 319 mg/dL 70-110 H : TESTED A T [facility] 1317 (BEAKER) (test code [address], = 1538) [place] [id number]: Campus Security Officer/Techni jr ID = [id number] for Nu Topete Urine [id number] 12:12:34 Test Item Value Reference Range Interpretation Comments Result (test code = 70-79,000 col/mL A 6463-4) Jeanne albicans OSBALDO (test code = OSBALDO) If your patient does not have signs or symptoms of UTI, it is recommended NOT to treat, with the exception of and prior to urologic procedures. Lab Interpretation (test Abnormal code = 27581-3) [facility] [id number] 12:12:34 Test Item Value Reference Range Interpretation Comments Result (test code = 70-79,000 col/mL A 6463-4) Jeanne albicans OSBALDO (test code = OSBALDO) If your patient does not have signs or symptoms of UTI, it is recommended NOT to treat, with the exception of and prior to urologic procedures. Lab Interpretation (test Abnormal code = 66239-1) [facility] [id number] 12:12:34 Test Item Value Reference Range Interpretation Comments Result (test code = 70-79,000 col/mL A 6463-4) Jeanne albicans OSBALDO (test code = OSBALDO) If your patient does not have signs or symptoms of UTI, it is recommended NOT to treat, with the exception of and prior to urologic procedures. Lab Interpretation (test Abnormal code = 07461-2) [facility] [id number] 12:12:34 Test Item Value Reference Range Interpretation Comments Result (test code = 70-79,000 col/mL A 6463-4) Jeanne albicans OSBALDO (test code = OSBALDO) If your patient does not have signs or symptoms of UTI, it is recommended NOT to treat, with the exception of and prior to urologic procedures. Lab Interpretation (test Abnormal code = 60710-9) [facility] [id number] 12:12:34 Test Item Value Reference Range Interpretation Comments Result (test code = 70-79,000 col/mL A 6463-4) Jeanne albicans OSBALDO (test code = OSBALDO) If your patient does not have signs or symptoms of UTI, it is recommended NOT to treat, with the exception of and prior to urologic procedures. Lab Interpretation (test Abnormal code = 00157-7) [facility] [id number] 12:12:34 Test Item Value Reference Range Interpretation Comments Result (test code = 70-79,000 col/mL A 6463-4) Jeanne albicans OSBALDO (test code = OSBALDO) If your patient does not have signs or symptoms of UTI, it is recommended NOT to treat, with the exception of and prior to urologic procedures. Lab Interpretation (test Abnormal code = 32788-8) [facility] [id number] 12:12:34 Test Item Value Reference Range Interpretation Comments Result (test code = 70-79,000 col/mL A 6463-4) Jeanne albicans OSBALDO (test code = OSBALDO) If your patient does not have signs or symptoms of UTI, it is recommended NOT to treat, with the exception of and prior to urologic procedures. Lab Interpretation (test Abnormal code = 89830-2) [facility] [id number] 12:12:34 Test Item Value Reference Range Interpretation Comments Result (test code = 70-79,000 col/mL A 6463-4) Jeanne albicans OSBALDO (test code = OSBALDO) If your patient does not have signs or symptoms of UTI, it is recommended NOT to treat, with the exception of and prior to urologic procedures. Lab Interpretation (test Abnormal code = 53535-8) [facility] [id number] 12:12:34 Test Item Value Reference Range Interpretation Comments Result (test code = 70-79,000 col/mL A 6463-4) Jeanne albicans OSBALDO (test code = OSBALDO) If your patient does not have signs or symptoms of UTI, it is recommended NOT to treat, with the exception of and prior to urologic procedures. Lab Interpretation (test Abnormal code = 50316-3) [facility] [id number] 12:12:34 Test Item Value Reference Range Interpretation Comments Result (test code = 70-79,000 col/mL A 6463-4) Jeanne albicans OSBALDO (test code = OSBALDO) If your patient does not have signs or symptoms of UTI, it is recommended NOT to treat, with the exception of and prior to urologic procedures. Lab Interpretation (test Abnormal code = 63816-7) [facility] [id number] 12:12:34 Test Item Value Reference Range Interpretation Comments Result (test code = 70-79,000 col/mL A 6463-4) Jeanne albicans OSBALDO (test code = OSBALDO) If your patient does not have signs or symptoms of UTI, it is recommended NOT to treat, with the exception of and prior to urologic procedures. Lab Interpretation (test Abnormal code = 27421-5) [facility] [id number] 12:12:34 Test Item Value Reference Range Interpretation Comments Result (test code = 70-79,000 col/mL A 6463-4) Jeanne albicans OSBALDO (test code = OSBALDO) If your patient does not have signs or symptoms of UTI, it is recommended NOT to treat, with the exception of and prior to urologic procedures. Lab Interpretation (test Abnormal code = 77936-3) [facility] [id number] 12:12:34 Test Item Value Reference Range Interpretation Comments Result (test code = 70-79,000 col/mL A 6463-4) Jeanne albicans OSBALDO (test code = OSBALDO) If your patient does not have signs or symptoms of UTI, it is recommended NOT to treat, with the exception of and prior to urologic procedures. Lab Interpretation (test Abnormal code = 03213-0) [facility] [id number] 12:12:34 Test Item Value Reference Range Interpretation Comments Result (test code = 70-79,000 col/mL A 6463-4) Jeanne albicans OSBALDO (test code = OSBALDO) If your patient does not have signs or symptoms of UTI, it is recommended NOT to treat, with the exception of and prior to urologic procedures. Lab Interpretation (test Abnormal code = 86243-3) [facility] [id number] 12:12:34 Test Item Value Reference Range Interpretation Comments Result (test code = 70-79,000 col/mL A 6463-4) Jeanne albicans OSBALDO (test code = OSBALDO) If your patient does not have signs or symptoms of UTI, it is recommended NOT to treat, with the exception of and prior to urologic procedures. Lab Interpretation (test Abnormal code = 35816-5) [facility] [id number] 12:12:34 Test Item Value Reference Range Interpretation Comments Result (test code = 70-79,000 col/mL A 6463-4) Jeanne albicans OSBALDO (test code = OSBALDO) If your patient does not have signs or symptoms of UTI, it is recommended NOT to treat, with the exception of and prior to urologic procedures. Lab Interpretation (test Abnormal code = 87876-6) [facility] Ruhfumh1783-77-76 12:12:34 Test Item Value Reference Range Interpretation Comments Result (test code = 70-79,000 col/mL A 6463-4) Jeanne albicans OSBALDO (test code = OSBALDO) If your patient does not have signs or symptoms of UTI, it is recommended NOT to treat, with the exception of and prior to urologic procedures. Lab Interpretation (test Abnormal code = 29334-3) [facility] [id number] 12:12:34 Test Item Value Reference Range Interpretation Comments Result (test code = 70-79,000 col/mL A 6463-4) Jeanne albicans SOBALDO (test code = OSBALDO) If your patient does not have signs or symptoms of UTI, it is recommended NOT to treat, with the exception of and prior to urologic procedures. Lab Interpretation (test Abnormal code = 11606-6) [facility] Uyteffi3267-83-53 12:12:34 Test Item Value Reference Range Interpretation Comments Result (test code = 70-79,000 col/mL A 6463-4) Jeanne albicans OSBALDO (test code = OSBALDO) If your patient does not have signs or symptoms of UTI, it is recommended NOT to treat, with the exception of and prior to urologic procedures. Lab Interpretation (test Abnormal code = 38450-1) [facility] Jntcguw6787-03-45 12:12:34 Test Item Value Reference Range Interpretation Comments Result (test code = 70-79,000 col/mL A 6463-4) Jeanne albicans OSBALDO (test code = OSBALDO) If your patient does not have signs or symptoms of UTI, it is recommended NOT to treat, with the exception of and prior to urologic procedures. Lab Interpretation (test Abnormal code = 22896-2) [facility] Fcrxxko7346-32-89 12:12:34 Test Item Value Reference Range Interpretation Comments Result (test code = 70-79,000 col/mL A 6463-4) Jeanne albicans OSBALDO (test code = OSBALDO) If your patient does not have signs or symptoms of UTI, it is recommended NOT to treat, with the exception of and prior to urologic procedures. Lab Interpretation (test Abnormal code = 39914-9) [facility] [id number] 12:12:34 Test Item Value Reference Range Interpretation Comments Result (test code = 70-79,000 col/mL A 6463-4) Jeanne albicans OSBALDO (test code = OSBALDO) If your patient does not have signs or symptoms of UTI, it is recommended NOT to treat, with the exception of and prior to urologic procedures. Lab Interpretation (test Abnormal code = 86829-7) [facility] [id number] 12:12:34 Test Item Value Reference Range Interpretation Comments CULTURE (BEAKER) (test A 70-79 ,000 col/mL Jeanne code = 1095) albicans If your patient does not have signs or symptoms of UTI, it is recommended NOT to treat, with the exception of and prior to urologic procedures.POCT- GLUCOSE [id number] 11:45:37 Test Item Value Reference Range Interpretation Comments POC-GLUCOSE METER 269 mg/dL 70-110 H : TESTED A T [address] (BEAKER) (test code [address], = 1538) [facility] 77 478: Campus Security Officer/Techni jr ID = [id number] for Madai Bennett MRSA [id number] 10:08:11 Test Item Value Reference Range Interpretation Comments Result (test code = 3+ Methicillin A 6463-4) resistant Staphylococcus aureus Lab Interpretation Abnormal (test code = 47250-0) [id number] 10:08:11 Test Item Value Reference Range Interpretation Comments Result (test code = 3+ Methicillin A 6463-4) resistant Staphylococcus aureus Lab Interpretation Abnormal (test code = 34824-5) [facility] fmueum7444-41-58 10:08:11 Test Item Value Reference Range Interpretation Comments Result (test code = 3+ Methicillin A 6463-4) resistant Staphylococcus aureus Lab Interpretation Abnormal (test code = 14300-9) [facility] [id number] 10:08:11 Test Item Value Reference Range Interpretation Comments Result (test code = 3+ Methicillin A 6463-4) resistant Staphylococcus aureus Lab Interpretation Abnormal (test code = 87272-3) [facility] [id number] 10:08:11 Test Item Value Reference Range Interpretation Comments Result (test code = 3+ Methicillin A 6463-4) resistant Staphylococcus aureus Lab Interpretation Abnormal (test code = 00723-0) [facility] [id number] 10:08:11 Test Item Value Reference Range Interpretation Comments Result (test code = 3+ Methicillin A 6463-4) resistant Staphylococcus aureus Lab Interpretation Abnormal (test code = 76036-0) [facility] [id number] 10:08:11 Test Item Value Reference Range Interpretation Comments Result (test code = 3+ Methicillin A 6463-4) resistant Staphylococcus aureus Lab Interpretation Abnormal (test code = 55350-7) [facility] [id number] 10:08:11 Test Item Value Reference Range Interpretation Comments Result (test code = 3+ Methicillin A 6463-4) resistant Staphylococcus aureus Lab Interpretation Abnormal (test code = 33814-4) [facility] [id number] 10:08:11 Test Item Value Reference Range Interpretation Comments Result (test code = 3+ Methicillin A 6463-4) resistant Staphylococcus aureus Lab Interpretation Abnormal (test code = 78226-0) [facility] [id number] 10:08:11 Test Item Value Reference Range Interpretation Comments Result (test code = 3+ Methicillin A 6463-4) resistant Staphylococcus aureus Lab Interpretation Abnormal (test code = 78778-2) [facility] [id number] 10:08:11 Test Item Value Reference Range Interpretation Comments Result (test code = 3+ Methicillin A 6463-4) resistant Staphylococcus aureus Lab Interpretation Abnormal (test code = 02836-5) [facility] [id number] 10:08:11 Test Item Value Reference Range Interpretation Comments Result (test code = 3+ Methicillin A 6463-4) resistant Staphylococcus aureus Lab Interpretation Abnormal (test code = 63217-2) [facility] [id number] 10:08:11 Test Item Value Reference Range Interpretation Comments Result (test code = 3+ Methicillin A 6463-4) resistant Staphylococcus aureus Lab Interpretation Abnormal (test code = 01231-2) [facility] [id number] 10:08:11 Test Item Value Reference Range Interpretation Comments Result (test code = 3+ Methicillin A 6463-4) resistant Staphylococcus aureus Lab Interpretation Abnormal (test code = 68118-4) [facility] [id number] 10:08:11 Test Item Value Reference Range Interpretation Comments Result (test code = 3+ Methicillin A 6463-4) resistant Staphylococcus aureus Lab Interpretation Abnormal (test code = 74477-0) [facility] [id number] 10:08:11 Test Item Value Reference Range Interpretation Comments Result (test code = 3+ Methicillin A 6463-4) resistant Staphylococcus aureus Lab Interpretation Abnormal (test code = 99283-5) [facility] [id number] 10:08:11 Test Item Value Reference Range Interpretation Comments Result (test code = 3+ Methicillin A 6463-4) resistant Staphylococcus aureus Lab Interpretation Abnormal (test code = 58593-1) [facility] [id number] 10:08:11 Test Item Value Reference Range Interpretation Comments Result (test code = 3+ Methicillin A 6463-4) resistant Staphylococcus aureus Lab Interpretation Abnormal (test code = 17319-2) [facility] [id number] 10:08:11 Test Item Value Reference Range Interpretation Comments Result (test code = 3+ Methicillin A 6463-4) resistant Staphylococcus aureus Lab Interpretation Abnormal (test code = 26202-5) [facility] [id number] 10:08:11 Test Item Value Reference Range Interpretation Comments Result (test code = 3+ Methicillin A 6463-4) resistant Staphylococcus aureus Lab Interpretation Abnormal (test code = 01094-1) [facility] [id number] 10:08:11 Test Item Value Reference Range Interpretation Comments Result (test code = 3+ Methicillin A 6463-4) resistant Staphylococcus aureus Lab Interpretation Abnormal (test code = 86758-1) [facility] [id number] 10:08:11 Test Item Value Reference Range Interpretation Comments Result (test code = 3+ Methicillin A 6463-4) resistant Staphylococcus aureus Lab Interpretation Abnormal (test code = 83421-9) [facility] [id number] 10:08:11 Test Item Value Reference Range Interpretation Comments CULTURE (BEAKER) A 3+ Methicil lulu resistant (test code = 1095) Staphyloc occus aureus POCT-GLUCOSE [id number] 06:04:57 Test Item Value Reference Range Interpretation Comments POC-GLUCOSE METER 247 mg/dL 70-110 H : TESTED A T [address] (BEAKER) (test code [address], = 1538) [facility] [place] [address]: Campus Security Officer/Techni jr ID = [id number] for Jennifer Mathews BASIC METABOLIC [id number] 04:56:39 Test Item Value Reference Range Interpretation Comments SODIUM (BEAKER) 150 meq/L 135-148 H (test code = 381) POTASSIUM 3.8 meq/L 3.6-5.5 (BEAKER) (test code = 379) CHLORIDE (BEAKER) 111 meq/L 98-106 H (test code = 382) CO2 (BEAKER) 27 meq/L 20-29 (test code = 355) BLOOD UREA 78 mg/dL 10-26 H NITROGEN (BEAKER) (test code = 354) CREATININE 3.38 mg/dL 0.50-1.20 H (BEAKER) (test code = 358) GLUCOSE RANDOM 191 mg/dL 70-110 H (BEAKER) (test code = 652) CALCIUM (BEAKER) 9.4 mg/dL 8.5-10.5 (test code = 697) EGFR (BEAKER) 21 Interpretatio n of eGFR (test code = mL/min/1.73 values Stage De scription 1092) sq m Result G1 Mary Jo l or high >=90 G2 Mildly decreased 60-89 G3a Mildl y to moderately 45-5 9 G3b Moderately to s everely 30-44 G4 Severl y decreased 15-29 G5 Kidney failure <15Reported eGF R is based on the CKD-EPI 202 equation that d oes not use a race coefficientEsti mated GFR is not as accur ate as Creatinine Genevieve elysia in predicting glom erular filtration rate . Estimated GFR is not appl icable for dialysis patien ts Campus Security Officer ID - [id number] ID - [id number] ID - [id number] ID - [id number] ID - [id number] ID - [id number] ID - [id number] ID - [id number] ID - [id number] ID - [id number](MANUAL DIFFERENTIAL)2022-12-03 04:55:48 Test Item Value Reference Range Interpretation Comments NEUTROPHILS - REL (DIFF) (BEAKER) 72 % (test code = 1359) LYMPHOCYTES - REL (DIFF) (BEAKER) 15 % (test code = 1360) MONOCYTES - REL (DIFF) (BEAKER) 7 % (test code = 1361) EOSINOPHILS - REL (DIFF) (BEAKER) 5 % (test code = 1362) BASOPHILS - REL (DIFF) (BEAKER) 1 % (test code = 1363) NEUTROPHILS - ABS (DIFF) (BEAKER) 15.26 K/ L 1.80-8.00 H (test code = 1365) LYMPHOCYTES - ABS (DIFF) (BEAKER) 3.18 K/ L 1.48-4.50 (test code = 1366) MONOCYTES - ABS (DIFF) (BEAKER) 1.48 K/ L 0.00-1.30 H (test code = 1367) EOSINOPHILS - ABS (DIFF) (BEAKER) 1.06 K/ L 0.00-0.50 H (test code = 1368) BASOPHILS - ABS (DIFF) (BEAKER) 0.21 K/ L 0.00-0.20 H (test code = 1369) TOTAL COUNTED (BEAKER) (test code 100 = 1351) WBC MORPHOLOGY (BEAKER) (test code Normal = 487) PLT MORPHOLOGY (BEAKER) (test code Normal = 486) RBC MORPHOLOGY (BEAKER) (test code Normal = 762) CBC W/PLT COUNT & AUTO [id number] 04:55:42 Test Item Value Reference Range Interpretation Comments WHITE BLOOD CELL COUNT (BEAKER) 21.2 K/ L 4.0-10.0 H (test code = 775) RED BLOOD CELL COUNT (BEAKER) 3.80 M/ L 4.20-5.80 L (test code = 761) HEMOGLOBIN (BEAKER) (test code = 9.7 GM/DL 13.0-16.8 L 410) HEMATOCRIT (BEAKER) (test code = 31.4 % 36.0-50.0 L 411) MEAN CORPUSCULAR VOLUME (BEAKER) 83 fL 82-99 (test code = 753) MEAN CORPUSCULAR HEMOGLOBIN 25.5 pg 27.0-33.0 L (BEAKER) (test code = 751) MEAN CORPUSCULAR HEMOGLOBIN CONC 30.9 GM/DL 32.0-36.0 L (BEAKER) (test code = 752) RED CELL DISTRIBUTION WIDTH 17.6 % 12.0-15.0 H (BEAKER) (test code = 412) PLATELET COUNT (BEAKER) (test 317 K/CU MM 150-430 code = 756) MEAN PLATELET VOLUME (BEAKER) 11.6 fL 6.0-11.5 H (test code = 754) NUCLEATED RED BLOOD CELLS 0 /100 WBC 0-0 (BEAKER) (test code = 413) VANCOMYCIN LEVEL, [id number] 04:50:29 Test Item Value Reference Range Interpretation Comments VANCOMYCIN TROUGH (BEAKER) (test 18.7 ug/mL 10.0-20.0 code = 522) Campus Security Officer ID - [id number] 04:47:24 Test Item Value Reference Range Interpretation Comments MAGNESIUM (BEAKER) (test code = 2.3 mg/dL 1.5-3.0 627) Campus Security Officer ID - [id number] ID - [id number] ID - [id number] ID - [id number] 04:44:23 Test Item Value Reference Range Interpretation Comments PHOSPHORUS (BEAKER) (test code = 1.8 mg/dL 2.5-4.5 L 604) Campus Security Officer ID - [id number] [id number] 23:25:21 Test Item Value Reference Range Interpretation Comments POC-GLUCOSE METER 213 mg/dL 70-110 H : TESTED A T [address] (BEAKER) (test code [facility], = 1538) [place] [id number]: Campus Security Officer/Techni jr ID = [id number] for Gito gary, Jennifer POCT-GLUCOSE [id number] 20:38:48 Test Item Value Reference Range Interpretation Comments POC-GLUCOSE METER 191 mg/dL 70-110 H : TESTED A T [address] (BEAKER) (test code [facility], = 1538) [place] [id number]: Campus Security Officer/Techni jr ID = [id number] for [place] (TXFlr), Camryn POCT-GLUCOSE [id number] 18:51:33 Test Item Value Reference Range Interpretation Comments POC-GLUCOSE METER 186 mg/dL 70-110 H : TESTED A T [facility] 1317 (BEAKER) (test code [address], = 1538) [facility] 77 478: Campus Security Officer/Techni jr ID = [id number] for Malick lar, Madai [place], ESOPH, SWALLOW FUNCTION, WITH CINE OR [id number] 15:13:00Reason for exam:->failed swallow eval [facility] Sophy : 1965 Sex: MFINAL REPORT EXAMINATION: Modified barium swallow study INDICATION: failed swallow eval COMPARISON: None. TECHNIQUE: The examination was performed in conjunction with speech pathology. Varying consistencies of barium was administered under lateral fluoroscopic observation. Fluoroscopy time: 147.7 secondsDose: 8.17 mGyNumber of Images: 18 IMPRESSION:Please refer to speech pathologist's note from same date for further description. Signed: Betzy Mcnamara Verified Date/Time: 12/02/2022 15:13:13 Reading Location: [facility] Radiology Reading Room Sputum Culture + Gram [id number] 13:44:14 Test Item Value Reference Range Interpretation Comments Result (test code = <1+ Normal respiratory 6463-4) eula present Gram Stain Result <1+ Mixed eula (test code = 1123) [facility] [id number] 13:44:14 Test Item Value Reference Range Interpretation Comments Result (test code = <1+ Normal respiratory 6463-4) eula present Gram Stain Result <1+ Mixed eula (test code = 1123) [facility] [id number] 13:44:14 Test Item Value Reference Range Interpretation Comments Result (test code = <1+ Normal respiratory 6463-4) eula present Gram Stain Result <1+ Mixed eula (test code = 1123) [facility] [id number] 13:44:14 Test Item Value Reference Range Interpretation Comments Result (test code = <1+ Normal respiratory 6463-4) eula present Gram Stain Result <1+ Mixed eula (test code = 1123) [facility] [id number] 13:44:14 Test Item Value Reference Range Interpretation Comments Result (test code = <1+ Normal respiratory 6463-4) eula present Gram Stain Result <1+ Mixed eula (test code = 1123) [facility] [id number] 13:44:14 Test Item Value Reference Range Interpretation Comments Result (test code = <1+ Normal respiratory 6463-4) eula present Gram Stain Result <1+ Mixed eula (test code = 1123) [facility] [id number] 13:44:14 Test Item Value Reference Range Interpretation Comments Result (test code = <1+ Normal respiratory 6463-4) eula present Gram Stain Result <1+ Mixed eula (test code = 1123) [facility] [id number] 13:44:14 Test Item Value Reference Range Interpretation Comments Result (test code = <1+ Normal respiratory 6463-4) eula present Gram Stain Result <1+ Mixed eula (test code = 1123) [facility] [id number] 13:44:14 Test Item Value Reference Range Interpretation Comments Result (test code = <1+ Normal respiratory 6463-4) eula present Gram Stain Result <1+ Mixed eula (test code = 1123) [facility] [id number] 13:44:14 Test Item Value Reference Range Interpretation Comments Result (test code = <1+ Normal respiratory 6463-4) eula present Gram Stain Result <1+ Mixed elua (test code = 1123) [facility] [id number] 13:44:14 Test Item Value Reference Range Interpretation Comments Result (test code = <1+ Normal respiratory 6463-4) eula present Gram Stain Result <1+ Mixed eula (test code = 1123) [facility] [id number] 13:44:14 Test Item Value Reference Range Interpretation Comments Result (test code = <1+ Normal respiratory 6463-4) eula present Gram Stain Result <1+ Mixed eula (test code = 1123) [facility] Gram [id number] 13:44:14 Test Item Value Reference Range Interpretation Comments Result (test code = <1+ Normal respiratory 6463-4) eula present Gram Stain Result <1+ Mixed elua (test code = 1123) [facility] [id number] 13:44:14 Test Item Value Reference Range Interpretation Comments Result (test code = <1+ Normal respiratory 6463-4) eula present Gram Stain Result <1+ Mixed eula (test code = 1123) [facility] [id number] 13:44:14 Test Item Value Reference Range Interpretation Comments Result (test code = <1+ Normal respiratory 6463-4) eula present Gram Stain Result <1+ Mixed eula (test code = 1123) [facility] Gram [id number] 13:44:14 Test Item Value Reference Range Interpretation Comments Result (test code = <1+ Normal respiratory 6463-4) eula present Gram Stain Result <1+ Mixed eula (test code = 1123) [facility] Gram [id number] 13:44:14 Test Item Value Reference Range Interpretation Comments Result (test code = <1+ Normal respiratory 6463-4) eula present Gram Stain Result <1+ Mixed eula (test code = 1123) [facility] [id number] 13:44:14 Test Item Value Reference Range Interpretation Comments Result (test code = <1+ Normal respiratory 6463-4) elua present Gram Stain Result <1+ Mixed eula (test code = 1123) [facility] [id number] 13:44:14 Test Item Value Reference Range Interpretation Comments Result (test code = <1+ Normal respiratory 6463-4) eula present Gram Stain Result <1+ Mixed eula (test code = 1123) [facility] Gram [id number] 13:44:14 Test Item Value Reference Range Interpretation Comments Result (test code = <1+ Normal respiratory 6463-4) eula present Gram Stain Result <1+ Mixed eula (test code = 1123) [facility] Gram [id number] 13:44:14 Test Item Value Reference Range Interpretation Comments Result (test code = <1+ Normal respiratory 6463-4) eula present Gram Stain Result <1+ Mixed eula (test code = 1123) [facility] Gram [id number] 13:44:14 Test Item Value Reference Range Interpretation Comments Result (test code = <1+ Normal respiratory 6463-4) eula present Gram Stain Result <1+ Mixed eula (test code = 1123) [facility] [id number] 13:44:14 Test Item Value Reference Range Interpretation Comments CULTURE (BEAKER) <1+ Normal respiratory (test code = 1095) eula present GRAM STAIN RESULT 4+ WBCs (BEAKER) (test code = 1123) GRAM STAIN RESULT <1+ epithelial cells (BEAKER) (test code = 36959) GRAM STAIN RESULT <1+ Mixed eula (BEAKER) (test code = 17216) POCT-GLUCOSE [id number] 12:05:25 Test Item Value Reference Range Interpretation Comments POC-GLUCOSE METER 193 mg/dL 70-110 H : TESTED A T [facility] (BEAKER) (test code [address], = 1538) [place] [id number]: Campus Security Officer/Techni jr ID = [id number] for Hanna Soliman POCT-GLUCOSE [id number] 08:53:14 Test Item Value Reference Range Interpretation Comments POC-GLUCOSE METER 192 mg/dL 70-110 H : TESTED A T [facility] (BEAKER) (test code [facility] [address], = 15[address]) [facility] 77 [address]: Campus Security Officer/Techni jr ID = [id number] for Hanna Soliman POCT-GLUCOSE [id number] 06:45:16 Test Item Value Reference Range Interpretation Comments POC-GLUCOSE METER 189 mg/dL 70-110 H : TESTED A T [facility] [address] (BEAKER) (test code [facility] [address], = 1538) [place] [id number]: Campus Security Officer/Techni jr ID = [id number] for Lenore Philip (MANUAL DIFFERENTIAL)2022-12-02 05:41:42 Test Item Value Reference Range Interpretation Comments NEUTROPHILS - REL (DIFF) (BEAKER) 79 % (test code = 1359) LYMPHOCYTES - REL (DIFF) (BEAKER) 6 % (test code = 1360) MONOCYTES - REL (DIFF) (BEAKER) 3 % (test code = 1361) BANDS - REL (DIFF) (BEAKER) (test 12 % 0-10 H code = 1348) NEUTROPHILS - ABS (DIFF) (BEAKER) 21.41 K/ L 1.80-8.00 H (test code = 1365) LYMPHOCYTES - ABS (DIFF) (BEAKER) 1.63 K/ L 1.48-4.50 (test code = 1366) MONOCYTES - ABS (DIFF) (BEAKER) 0.81 K/ L 0.00-1.30 (test code = 1367) BANDS-ABS (DIFF) (BEAKER) (test 3.3 K/ L 0.0-0.8 H code = 1349) TOTAL COUNTED (BEAKER) (test code 100 = 1351) BANDS + SEGMENTED NEUTROPHILS 24.66 (BEAKER) (test code = 1352) WBC MORPHOLOGY (BEAKER) (test code Normal = 487) PLT MORPHOLOGY (BEAKER) (test code Normal = 486) ANISOCYTOSIS (BEAKER) (test code = 1+ 961) CBC W/PLT COUNT & AUTO [id number] 05:41:41 Test Item Value Reference Range Interpretation Comments WHITE BLOOD CELL COUNT (BEAKER) 27.1 K/ L 4.0-10.0 H (test code = 775) RED BLOOD CELL COUNT (BEAKER) 3.63 M/ L 4.20-5.80 L (test code = 761) HEMOGLOBIN (BEAKER) (test code = 9.2 GM/DL 13.0-16.8 L 410) HEMATOCRIT (BEAKER) (test code = 29.3 % 36.0-50.0 L 411) MEAN CORPUSCULAR VOLUME (BEAKER) 81 fL 82-99 L (test code = 753) MEAN CORPUSCULAR HEMOGLOBIN 25.3 pg 27.0-33.0 L (BEAKER) (test code = 751) MEAN CORPUSCULAR HEMOGLOBIN CONC 31.4 GM/DL 32.0-36.0 L (BEAKER) (test code = 752) RED CELL DISTRIBUTION WIDTH 17.5 % 12.0-15.0 H (BEAKER) (test code = 412) PLATELET COUNT (BEAKER) (test 333 K/CU MM 150-430 code = 756) MEAN PLATELET VOLUME (BEAKER) 11.7 fL 6.0-11.5 H (test code = 754) NUCLEATED RED BLOOD CELLS 0 /100 WBC 0-0 (BEAKER) (test code = 413) NEUTROPHILS RELATIVE PERCENT 75 % (BEAKER) (test code = 429) LYMPHOCYTES RELATIVE PERCENT 7 % (BEAKER) (test code = 430) MONOCYTES RELATIVE PERCENT 3 % (BEAKER) (test code = 431) EOSINOPHILS RELATIVE PERCENT 1 % (BEAKER) (test code = 432) BASOPHILS RELATIVE PERCENT 1 % (BEAKER) (test code = 437) NEUTROPHILS ABSOLUTE COUNT 20.30 K/ L 1.80-8.00 H (BEAKER) (test code = 670) LYMPHOCYTES ABSOLUTE COUNT 1.90 K/ L 1.48-4.50 (BEAKER) (test code = 414) MONOCYTES ABSOLUTE COUNT (BEAKER) 0.87 K/ L 0.00-1.30 (test code = 415) EOSINOPHILS ABSOLUTE COUNT 0.17 K/ L 0.00-0.50 (BEAKER) (test code = 416) BASOPHILS ABSOLUTE COUNT (BEAKER) 0.19 K/ L 0.00-0.20 (test code = 417) IMMATURE GRANULOCYTES-RELATIVE 13.40 % 0.00-0.00 H PERCENT (BEAKER) (test code = 2801) [id number] 04:45:46 Test Item Value Reference Range Interpretation Comments MAGNESIUM (BEAKER) (test code = 2.3 mg/dL 1.5-3.0 627) Campus Security Officer ID - [id number] ID - [id number] ID - [id number] ID - [id number] METABOLIC [id number] 04:44:58 Test Item Value Reference Range Interpretation Comments SODIUM (BEAKER) 150 meq/L 135-148 H (test code = 381) POTASSIUM 3.6 meq/L 3.6-5.5 (BEAKER) (test code = 379) CHLORIDE (BEAKER) 111 meq/L 98-106 H (test code = 382) CO2 (BEAKER) 26 meq/L 20-29 (test code = 355) BLOOD UREA 85 mg/dL 10-26 H NITROGEN (BEAKER) (test code = 354) CREATININE 3.73 mg/dL 0.50-1.20 H (BEAKER) (test code = 358) GLUCOSE RANDOM 152 mg/dL 70-110 H (BEAKER) (test code = 652) CALCIUM (BEAKER) 9.2 mg/dL 8.5-10.5 (test code = 697) EGFR (BEAKER) 18 Interpretatio n of eGFR (test code = mL/min/1.73 values Stage De scription 1092) sq m Result G1 Mary Jo l or high >=90 G2 Mildly decreased 60-89 G3a Mildl y to moderately 45-5 9 G3b Moderately to s everely 30-44 G4 Severl y decreased 15-29 G5 Kidney failure <15Reported eGF R is based on the CKD-EPI 2021 equation that d oes not use a race coefficientEsti mated GFR is not as accur ate as Creatinine Genevieve elysia in predicting glom erular filtration rate . Estimated GFR is not appl icable for dialysis patien ts Campus Security Officer ID - [id number] ID - [id number] ID - [id number] ID - [id number] ID - [id number] ID - [id number] ID - AVJRWIBXK856Mcofrkpw ID - [id number] ID - [id number] ID - [id number] 04:43:03 Test Item Value Reference Range Interpretation Comments PHOSPHORUS (BEAKER) (test code = 2.6 mg/dL 2.5-4.5 604) Campus Security Officer ID - [id number] GAS, [id number] 04:14:26 Test Item Value Reference Range Interpretation Comments PH VENOUS (BEAKER) (test code = 7.43 7.32-7.42 H 701) PCO2 VENOUS (BEAKER) (test code = 46 mm Hg 41-51 755) PO2 VENOUS (BEAKER) (test code = 50 mm Hg 25-40 H 702) O2 SATURATION VENOUS (BEAKER) 85.6 % 40.0-70.0 H (test code = 703) HCO3 VENOUS (BEAKER) (test code = 30 mmol/L 21-29 H 705) BASE EXCESS VENOUS (BEAKER) (test 4.5 mmol/L -2.0-3.0 H code = 704) PATIENT TEMPERATURE (BEAKER) (test 37.0 code = 1818) FIO2 (BEAKER) (test code = 1819) 21.0 POCT-GLUCOSE [id number] 00:03:21 Test Item Value Reference Range Interpretation Comments POC-GLUCOSE METER 96 mg/dL 70-110 : TESTED A T [facility] (BEAKER) (test code = [address], 1538) [place] [address]: Campus Security Officer/Techni jr ID = [id number] for Saranalisa iebellao, Lenore POCT-GLUCOSE [id number] 21:01:56 Test Item Value Reference Range Interpretation Comments POC-GLUCOSE METER 90 mg/dL 70-110 : TESTED A T [facility] (BEAKER) (test code = [address], 1538) [place] [id number]: Campus Security Officer/Techni jr ID = [id number] for Sarm iento, Lenore POCT-GLUCOSE [id number] 19:46:14 Test Item Value Reference Range Interpretation Comments POC-GLUCOSE METER 57 mg/dL 70-110 L : TESTED A T [facility] [address] (BEAKER) (test code = [address], 1538) [place] [id number]: Campus Security Officer/Techni jr ID = [id number] for Sarm iento, Lenore POCT-GLUCOSE [id number] 17:44:14 Test Item Value Reference Range Interpretation Comments POC-GLUCOSE METER 75 mg/dL 70-110 : TESTED A T [facility] 1317 (BECHRISTOPHE) (test code = [address], 1538) [facility] 77 478: Campus Security Officer/Techni jr ID = [id number] for Ho, Nhatrang RAD, CHEST, 1 VIEW, NON [id number] 12:05:00Reason for exam:->hypoxic [facility] Sophy : 1965 Sex: MFINAL REPORT RAD, CHEST, 1 VIEW, NON DEPT INDICATION: hypoxic COMPARISON: 11/30/2022 FINDINGS: Portable frontal view of the chest. IMPRESSION: Support Lines: Tracheostomy. Lungs and pleura:Hazy bilateral interstitial thickening concerning for airspace disease and/or atypical infection. No significant pneumothorax. Heart and mediastinum: Stable contours. Additional findings: None. Signed:Chuyita Lorenz MDReport Verified Date/Time: 12/01/2022 12:05:26 Reading Location: [address] Reading Room 2D Echo W/Doppler(CW/PW/Color)2022-12-01 11:40:38Ejection FractionSLEH ECHO HEARTLAB [facility]2D Echo W/Doppler(CW/PW/Color) 2022-12-01 11:40:38Ejection FractionSLEH ECHO HEARTLAB [facility] Echo W/Doppler(CW/PW/Color)2022-12-01 11:40:38Ejection FractionSLEH ECHO HEARTLAB [facility] Echo W/Doppler(CW/PW/Color)2022-12-01 11:40:38Ejection FractionSLEH ECHO HEARTLAB [facility] Echo W/Doppler(CW/PW/Color) 2022-12-01 11:40:38Ejection FractionSLEH ECHO HEARTLAB [facility] Echo W/Doppler(CW/PW/Color)2022-12-01 11:40:38Ejection FractionSLEH ECHO HEARTLAB [facility] Echo W/Doppler(CW/PW/Color)2022-12-01 11:40:38Ejection FractionSLEH ECHO HEARTLAB [facility] Echo W/Doppler(CW/PW/Color) 2022-12-01 11:40:38Ejection FractionSLEH ECHO HEARTLAB [facility] Echo W/Doppler(CW/PW/Color)2022-12-01 11:40:38Ejection FractionSLE ECHO HEARTLAB [facility]2D Echo W/Doppler(CW/PW/Color)2022-12-01 11:40:38Ejection FractionSLEH ECHO HEARTLAB [facility]2D Echo W/Doppler(CW/PW/Color) 2022-12-01 11:40:38Ejection FractionSLEH ECHO HEARTLAB [facility] Echo W/Doppler(CW/PW/Color)2022-12-01 11:40:38Ejection FractionSLEH ECHO HEARTLAB [facility] Echo W/Doppler(CW/PW/Color)2022-12-01 11:40:38Ejection FractionSLEH ECHO HEARTLAB [facility] Echo W/Doppler(CW/PW/Color) 2022-12-01 11:40:38Ejection FractionSLEH ECHO HEARTLAB [facility] Echo W/Doppler(CW/PW/Color)2022-12-01 11:40:38Ejection FractionSLEH ECHO HEARTLAB [facility] Echo W/Doppler(CW/PW/Color)2022-12-01 11:40:38Ejection FractionSLEH ECHO HEARTLAB [facility] Echo W/Doppler(CW/PW/Color) 2022-12-01 11:40:38Ejection FractionSLEH ECHO HEARTLAB [facility] Echo W/Doppler(CW/PW/Color)2022-12-01 11:40:38Ejection FractionSLEH ECHO HEARTLAB [facility] Echo W/Doppler(CW/PW/Color)2022-12-01 11:40:38Ejection FractionSLEH ECHO HEARTLAB [facility] Echo W/Doppler(CW/PW/Color) 2022-12-01 11:40:38Ejection FractionSLEH ECHO HEARTLAB [facility] Echo W/Doppler(CW/PW/Color)2022-12-01 11:40:38Ejection FractionSLEH ECHO HEARTLAB [facility] Echo W/Doppler(CW/PW/Color)2022-12-01 11:40:38Ejection FractionSLEH ECHO HEARTLAB [facility] Echo W/Doppler(CW/PW/Color) 2022-12-01 11:40:38Ejection [facility]LEH [facility]PW/Color[facility]2022-12-01 11:40:38Ejection FractionSLEH ECHO HEARTLAB [facility] Echo W/Doppler(CW/PW/Color)2022-12-01 11:40:38Ejection FractionSLEH ECHO HEARTLAB [facility]ucose [id number] 11:18:53 Test Item Value Reference Range Interpretation Comments POC-Glucose Meter (test 290 mg/dL 70-110 H : [facility] [address] [place] [id number]: Campus Security Officer/Techni jr ID = [id number] for Ho, Nhatrang Lab Interpretation (test Abnormal code = 14043-4) [facility]-Glucose [id number] 11:18:53 Test Item Value Reference Range Interpretation Comments POC-Glucose Meter (test 290 mg/dL 70-110 H : TE STED AT [facility] code = 1538) [address] [place] [id number]: Campus Security Officer/Techni jr ID = [id number] for Ho, Nhatrang Lab Interpretation (test Abnormal code = 38390-1) [facility]-Glucose [id number] 11:18:53 Test Item Value Reference Range Interpretation Comments POC-Glucose Meter (test 290 mg/dL 70-110 H : TE STED AT [facility] code = 1538) [address] [place] [id number]: Campus Security Officer/Techni jr ID = [id number] for Ho, Nhatrang Lab Interpretation (test Abnormal code = 07317-8) [facility]-GLUCOSE [id number] 11:18:53 Test Item Value Reference Range Interpretation Comments POC-GLUCOSE METER 290 mg/dL 70-110 H : TESTED A T [facility] 1317 (BEAKER) (test code [facility], = 1538) [place] [id number]: Campus Security Officer/Techni jr ID = [id number] for Ho, Nhatrang BASIC METABOLIC [id number] 08:35:07 Test Item Value Reference Range Interpretation Comments SODIUM (BEAKER) 144 meq/L 135-148 (test code = 381) POTASSIUM 4.8 meq/L 3.6-5.5 (BEAKER) (test code = 379) CHLORIDE (BEAKER) 108 meq/L 98-106 H (test code = 382) CO2 (BEAKER) 24 meq/L 20-29 (test code = 355) BLOOD UREA 89 mg/dL 10-26 H NITROGEN (BEAKER) (test code = 354) CREATININE 4.09 mg/dL 0.50-1.20 H (BEAKER) (test code = 358) GLUCOSE RANDOM 353 mg/dL 70-110 H ([facility]) (test code = 652) CALCIUM (AKER) 8.9 mg/dL 8.5-10.5 (test code = 697) EGFR ([facility]) 16 Interpretatio n of eGFR (test code = mL/min/1.73 values Stage De scription 1092) sq m Result G1 Mary Jo l or high >=90 G2 Mildly decreased 60-89 G3a Mildl y to moderately 45-5 9 G3b Moderately to s everely 30-44 G4 Severl y decreased 15-29 G5 Kidney failure <15Reported eGF R is based on the CKD-EPI 202 equation that d oes not use a race coefficientEsti mated GFR is not as accur ate as Creatinine Genevieve elysia in predicting glom erular filtration rate . Estimated GFR is not appl icable for dialysis patien ts Campus Security Officer ID - [id number] ID - [id number] ID - [id number] ID - [id number] ID - [id number] ID - [id number] ID - [id number] ID - PXQXZ197Ihfcippg ID - [id number] ID - [id number] ID - [id number] ID - [id number] ID - [id number] ACID, [id number] 07:48:33 Test Item Value Reference Range Interpretation Comments LACTATE BLOOD 1.70 mmol/L See_Comment [Automated me ssage] VENOUS (2) ([facility]) The syst em which (test code = 2872) generated this result transmitted ref erence range: 0.50-<2. 00. The reference range was not used to interpr et this result as normal/abnormal . POCT-GLUCOSE [id number] 06:01:14 Test Item Value Reference Range Interpretation Comments POC-GLUCOSE METER 289 mg/dL 70-110 H : TESTED A T [facility] [address] (Anonymous You) (test code [address], = 1538) [facility] 77 [address]: Campus Security Officer/Techni jr ID = [id number] for Lenore Philip HEMOGLOBIN [id number] 05:25:05 Test Item Value Reference Range Interpretation Comments HEMOGLOBIN A1C (3CLogic) (test code = 9.4 % 4.3-6.1 H 368) Campus Security Officer ID - [id number] W/PLT COUNT & AUTO [id number] 05:09:42 Test Item Value Reference Range Interpretation Comments WHITE BLOOD CELL COUNT (BEAKER) 38.9 K/ L 4.0-10.0 H (test code = 775) RED BLOOD CELL COUNT (BEAKER) 3.80 M/ L 4.20-5.80 L (test code = 761) HEMOGLOBIN (BEAKER) (test code = 9.8 GM/DL 13.0-16.8 L 410) HEMATOCRIT (BEAKER) (test code = 31.4 % 36.0-50.0 L 411) MEAN CORPUSCULAR VOLUME (BEAKER) 83 fL 82-99 (test code = 753) MEAN CORPUSCULAR HEMOGLOBIN 25.8 pg 27.0-33.0 L (BEAKER) (test code = 751) MEAN CORPUSCULAR HEMOGLOBIN CONC 31.2 GM/DL 32.0-36.0 L (BEAKER) (test code = 752) RED CELL DISTRIBUTION WIDTH 17.4 % 12.0-15.0 H (BEAKER) (test code = 412) PLATELET COUNT (BEAKER) (test 355 K/CU MM 150-430 code = 756) MEAN PLATELET VOLUME (BEAKER) 11.3 fL 6.0-11.5 (test code = 754) NUCLEATED RED BLOOD CELLS 0 /100 WBC 0-0 (BEAKER) (test code = 413) (MANUAL DIFFERENTIAL)2022-12-01 05:09:42 Test Item Value Reference Range Interpretation Comments NEUTROPHILS - REL (DIFF) (BEAKER) 64 % (test code = 1359) LYMPHOCYTES - REL (DIFF) (BEAKER) 10 % (test code = 1360) MONOCYTES - REL (DIFF) (BEAKER) 4 % (test code = 1361) METAMYELOCYTES-REL (DIFF) 1 % 0-0 H (BEAKER) (test code = 258) BANDS - REL (DIFF) (BEAKER) (test 21 % 0-10 H code = 1348) NEUTROPHILS - ABS (DIFF) (BEAKER) 24.90 K/ L 1.80-8.00 H (test code = 1365) LYMPHOCYTES - ABS (DIFF) (BEAKER) 3.89 K/ L 1.48-4.50 (test code = 1366) MONOCYTES - ABS (DIFF) (BEAKER) 1.56 K/ L 0.00-1.30 H (test code = 1367) METAMYELOCTYES - ABS (DIFF) 0.39 K/ L 0.00-0.00 H (BEAKER) (test code = 261) BANDS-ABS (DIFF) (BEAKER) (test 8.2 K/ L 0.0-0.8 H code = 1349) TOTAL COUNTED (BEAKER) (test code 100 = 1351) BANDS + SEGMENTED NEUTROPHILS 33.07 (BEAKER) (test code = 1352) WBC MORPHOLOGY (BEAKER) (test Normal code = 487) LARGE PLT(BEAKER) (test code = Present 2156) ANISOCYTOSIS (BEAKER) (test code 1+ few = 961) HYPOCHROMIA (BEAKER) (test code = 2+ moderate 963) MICROCYTES (BEAKER) (test code = 1+ few 965) [id number] 04:42:38 Test Item Value Reference Range Interpretation Comments MAGNESIUM (BEAKER) (test code = 2.1 mg/dL 1.5-3.0 627) Campus Security Officer ID - [id number] ID - [id number] ID - [id number] ID - [id number] 04:40:20 Test Item Value Reference Range Interpretation Comments PHOSPHORUS (BEAKER) (test code = 2.8 mg/dL 2.5-4.5 604) Campus Security Officer ID - [id number] METABOLIC [id number] 04:12:40 Test Item Value Reference Range Interpretation Comments SODIUM (BEAKER) 145 meq/L 135-148 (test code = 381) POTASSIUM 4.7 meq/L 3.6-5.5 (BEAKER) (test code = 379) CHLORIDE (BEAKER) 107 meq/L 98-106 H (test code = 382) CO2 (BEAKER) 25 meq/L 20-29 (test code = 355) BLOOD UREA 84 mg/dL 10-26 H NITROGEN (BEAKER) (test code = 354) CREATININE 4.15 mg/dL 0.50-1.20 H (BEAKER) (test code = 358) GLUCOSE RANDOM 280 mg/dL 70-110 H (BEAKER) (test code = 652) CALCIUM (BEAKER) 9.3 mg/dL 8.5-10.5 (test code = 697) EGFR (BEAKER) 16 Interpretatio n of eGFR (test code = mL/min/1.73 values Stage De scription 1092) sq m Result G1 Mary Jo l or high >=90 G2 Mildly decreased 60-89 G3a Mildl y to moderately 45-5 9 G3b Moderately to s everely 30-44 G4 Severl y decreased 15-29 G5 Kidney failure <15Reported eGF R is based on the CKD-EPI 2020 equation that d oes not use a race coefficientEsti mated GFR is not as accur ate as Creatinine Genevieve elysia in predicting glom erular filtration rate . Estimated GFR is not appl icable for dialysis patien ts Campus Security Officer ID - [id number] ID - [id number] ID - [id number] ID - AJYR61Hgnbcsgj ID - VHBB76Bavbcjdw ID - BOCB82Nybbelio ID - LGWB66Cexzphgi ID - IAWZ13Myodapax ID - LCHZ90Qzaomaur ID - [id number] 04:12:39 Test Item Value Reference Range Interpretation Comments MAGNESIUM (BEAKER) (test code = 2.2 mg/dL 1.5-3.0 627) Campus Security Officer ID - [id number] ID - [id number] ID - [id number] ID - [id number] LACTIC ACID, [id number] 04:10:15 Test Item Value Reference Range Interpretation Comments LACTATE BLOOD 3.09 mmol/L See_Comment HH [Automated me ssage] VENOUS (2) (BEAKER) The syst em which (test code = 2872) generated this result transmitted ref erence range: 0.50-<2. 00. The reference range was not used to interpr et this result as normal/abnormal . Campus Security Officer ID - [id number] ID - [id number] ID - [id number] ID - [id number] 04:10:10 Test Item Value Reference Range Interpretation Comments PHOSPHORUS (BEAKER) (test code = 2.7 mg/dL 2.5-4.5 604) Campus Security Officer ID - [id number] LEVEL, [id number] 04:05:26 Test Item Value Reference Range Interpretation Comments VANCOMYCIN TROUGH (BEAKER) (test 16.4 ug/mL 10.0-20.0 code = 522) Campus Security Officer ID - [id number] GAS, [id number] 03:53:32 Test Item Value Reference Range Interpretation Comments PH VENOUS (BEAKER) (test code = 7.40 7.32-7.42 701) PCO2 VENOUS (BEAKER) (test code = 45 mm Hg 41-51 755) PO2 VENOUS (BEAKER) (test code = 39 mm Hg 25-40 702) O2 SATURATION VENOUS (BEAKER) 76.4 % 40.0-70.0 H (test code = 703) HCO3 VENOUS (BEAKER) (test code = 28 mmol/L 21-29 705) BASE EXCESS VENOUS (BEAKER) (test 2.2 mmol/L -2.0-3.0 code = 704) PATIENT TEMPERATURE (BEAKER) (test 36.2 code = 1818) FIO2 (BEAKER) (test code = 1819) 80.0 POCT-GLUCOSE [id number] 02:16:54 Test Item Value Reference Range Interpretation Comments POC-GLUCOSE METER 260 mg/dL 70-110 H : TESTED A T [facility] (BEAKER) (test code [address], = 1538) [place] [id number]: Campus Security Officer/Techni jr ID = [id number] for Lenore Philip POCT-GLUCOSE [id number] 00:45:19 Test Item Value Reference Range Interpretation Comments POC-GLUCOSE METER 306 mg/dL 70-110 H : TESTED A T [facility] [address] (BEAKER) (test code [address], = 1538) [place] [id number]: Campus Security Officer/Techni jr ID = [id number] for Lenore Philip BASIC METABOLIC [id number] 00:11:58 Test Item Value Reference Range Interpretation Comments SODIUM (BEAKER) 139 meq/L 135-148 (test code = 381) POTASSIUM 5.7 meq/L 3.6-5.5 H (BEAKER) (test code = 379) CHLORIDE (BEAKER) 105 meq/L 98-106 (test code = 382) CO2 (BEAKER) 24 meq/L 20-29 (test code = 355) BLOOD UREA 85 mg/dL 10-26 H NITROGEN (BEAKER) (test code = 354) CREATININE 4.14 mg/dL 0.50-1.20 H (BEAKER) (test code = 358) GLUCOSE RANDOM 400 mg/dL 70-110 HH (BEAKER) (test code = 652) CALCIUM (BEAKER) 8.9 mg/dL 8.5-10.5 (test code = 697) EGFR (BEAKER) 16 Interpretatio n of eGFR (test code = mL/min/1.73 values Stage De scription 1092) sq m Result G1 Mary Jo l or high >=90 G2 Mildly decreased 60-89 G3a Mildl y to moderately 45-5 9 G3b Moderately to s everely 30-44 G4 Severl y decreased 15-29 G5 Kidney failure <15Reported eGF R is based on the CKD-EPI 2020 equation that d oes not use a race coefficientEsti mated GFR is not as accur ate as Creatinine Genevieve naidu in predicting glom erular filtration rate . Estimated GFR is not appl icable for dialysis patien ts Campus Security Officer ID - [id number] ID - [id number] ID - [id number] ID - [id number] - [id number] ID - [id number] ID - [id number] ID - [id number] ID - [id number] ID - [id number] ID - [id number] ID - [id number] ID - [id number] POCT-GLUCOSE [id number] 23:11:14 Test Item Value Reference Range Interpretation Comments POC-GLUCOSE METER 344 mg/dL 70-110 H : TESTED A T [address] 1317 (BEAKER) (test code [address], = 1538) [facility] [id number]: Campus Security Officer/Techni jr ID = [id number] for Dee Reynolds BASIC METABOLIC [id number] 20:11:13 Test Item Value Reference Range Interpretation Comments SODIUM (BEAKER) 141 meq/L 135-148 (test code = 381) POTASSIUM 5.4 meq/L 3.6-5.5 (BEAKER) (test code = 379) CHLORIDE (BEAKER) 107 meq/L 98-106 H (test code = 382) CO2 (BEAKER) 23 meq/L 20-29 (test code = 355) BLOOD UREA 82 mg/dL 10-26 H NITROGEN (BEAKER) (test code = 354) CREATININE 4.10 mg/dL 0.50-1.20 H (BEAKER) (test code = 358) GLUCOSE RANDOM 274 mg/dL 70-110 H (BEAKER) (test code = 652) CALCIUM (BEAKER) 9.1 mg/dL 8.5-10.5 (test code = 697) EGFR (BEAKER) 16 Interpretatio n of eGFR (test code = mL/min/1.73 values Stage De scription 1092) sq m Result G1 Mary Jo l or high >=90 G2 Mildly decreased 60-89 G3a Mildl y to moderately 45-5 9 G3b Moderately to s everely 30-44 G4 Sever ly decreased 15-29 G5 Kidney failure <15Repo rted eGFR is based on the CKD-EPI 2020 equation t hat does not use a race coefficientEsti mated GFR is not as accur ate as Creatinine Genevieve naidu in predicting glom erular filtration rate . Estimated GFR is not appl icable for dialysis patien ts Campus Security Officer ID - [id number] ID - [id number] ID - [id number] ID - [id number] - [id number] ID - [id number] ID - [id number] ID - [id number] ID - [id number] ID - [id number] ID - [id number] ID - [id number] ID - [id number] LACTIC ACID, [id number] 20:03:04 Test Item Value Reference Range Interpretation Comments LACTATE BLOOD 2.26 mmol/L See_Comment HH [Automated me ssage] VENOUS (2) (BEAKER) The syst em which (test code = 2872) generated this result transmitted ref erence range: 0.50-<2. 00. The reference range was not used to interpr et this result as normal/abnormal . Campus Security Officer ID - [id number] ID - [id number] ID - [id number] ID - [id number] GAS, [id number] 19:51:08 Test Item Value Reference Range Interpretation Comments PH VENOUS (BEAKER) (test code = 7.45 7.32-7.42 H 701) PCO2 VENOUS (BEAKER) (test code = 38 mm Hg 41-51 L 755) PO2 VENOUS (BEAKER) (test code = 53 mm Hg 25-40 H 702) O2 SATURATION VENOUS (BEAKER) 88.8 % 40.0-70.0 H (test code = 703) HCO3 VENOUS (BEAKER) (test code = 26 mmol/L 21-29 705) BASE EXCESS VENOUS (BEAKER) (test 1.9 mmol/L -2.0-3.0 code = 704) PATIENT TEMPERATURE (BEAKER) (test 37.0 code = 1818) FIO2 (BEAKER) (test code = 1819) 21.0 POCT-GLUCOSE [id number] 18:16:03 Test Item Value Reference Range Interpretation Comments POC-GLUCOSE METER 217 mg/dL 70-110 H : Notified RN/MD: TESTED (BEAKER) (test code AT [facility] [address] = 1538) [place] [address]: Campus Security Officer/Techni jr ID = [id number] for Vel Gonzalez POCT-GLUCOSE [id number] 17:13:17 Test Item Value Reference Range Interpretation Comments POC-GLUCOSE METER 199 mg/dL 70-110 H : TESTED A T [facility] [address] ([facility]) (test code [facility], = 1538) [place] [address]: Campus Security Officer/Techni jr ID = [id number] for Hanna Soliman [id number] 11:51:46 Test Item Value Reference Range Interpretation Comments CORTISOL, TOTAL (BEAKER) (test 52.9 ug/dL 3.7-19.4 H code = 2755) Campus Security Officer ID - ADMINPOCT-GLUCOSE [id number] 11:38:57 Test Item Value Reference Range Interpretation Comments POC-GLUCOSE METER 262 mg/dL 70-110 H : Notified RN/MD: TESTED (BEAKER) (test code AT [facility] [address] = 1538) [place] [id number]: Campus Security Officer/Techni jr ID = [id number] for Vel Gonzalez POCT-GLUCOSE [id number] 10:40:12 Test Item Value Reference Range Interpretation Comments POC-GLUCOSE METER 255 mg/dL 70-110 H : TESTED A T [facility] [address] (BEAKER) (test code [address], = 1538) [facility] [address]: Campus Security Officer/Techni jr ID = [id number] for Hanna Soliman COMPREHENSIVE METABOLIC [id number] 10:39:07 Test Item Value Reference Range Interpretation Comments TOTAL PROTEIN 6.3 gm/dL 6.0-8.5 (BEAKER) (test code = 770) ALBUMIN (BEAKER) 2.7 g/dL 3.5-5.0 L (test code = 1145) ALKALINE 116 U/L 30-115 H PHOSPHATASE (BEAKER) (test code = 346) BILIRUBIN TOTAL 0.3 mg/dL 0.1-1.2 (BEAKER) (test code = 377) SODIUM (BEAKER) 140 meq/L 135-148 (test code = 381) POTASSIUM (BEAKER) 5.1 meq/L 3.6-5.5 (test code = 379) CHLORIDE (BEAKER) 105 meq/L 98-106 (test code = 382) CO2 (BEAKER) (test 24 meq/L 20-29 code = 355) BLOOD UREA 80 mg/dL 10-26 H NITROGEN (BEAKER) (test code = 354) CREATININE 3.85 mg/dL 0.50-1.20 H (BEAKER) (test code = 358) GLUCOSE RANDOM 280 mg/dL 70-110 H (BEAKER) (test code = 652) CALCIUM (BEAKER) 9.1 mg/dL 8.5-10.5 (test code = 697) AST (SGOT) 22 U/L 5-40 (BEAKER) (test code = 353) ALT (SGPT) 16 U/L 5-50 (BEAKER) (test code = 347) EGFR (BEAKER) 18 Interpretatio n of eGFR (test code = 1092) mL/min/1.[address] age Description sq m Result G1 Mary Jo l or high >=90 G2 Mildly decreased 60-89 G3a Mildl y to moderately 45-5 9 G3b Moderately to s everely 30-44 G4 Severl y decreased 15-29 G5 Kidney failure <15Reported eGF R is based on the CKD-EPI 2020 equation that d oes not use a race coefficientEsti mated GFR is not as accur ate as Creatinine Genevieve elysia in predicting glom erular filtration rate . Estimated GFR is not appl icable for dialysis patien ts Campus Security Officer ID - [id number] ID - [id number] ID - [id number] ID - [id number] ID - [id number] ID - [id number] ID - [id number] ID - [id number] ID - [id number] ID - [id number] ID - [id number] ID - [id number] ID - [id number] ID - [id number] ID - [id number] ID - [id number] ID - [id number] ID - VANANHTSH/FREE T4 IF INDICATED 2022-11-30 09:57:51 Test Item Value Reference Range Interpretation Comments THYROID STIMULATING HORMONE 0.900 uIU/mL 0.350-5.500 (BEAKER) (test code = 772) Campus Security Officer ID - [id number] GAS, [id number] 08:59:04 Test Item Value Reference Range Interpretation Comments PH VENOUS (BEAKER) (test code = 7.34 7.32-7.42 701) PCO2 VENOUS (BEAKER) (test code = 51 mm Hg 41-51 755) PO2 VENOUS (BEAKER) (test code = 40 mm Hg 25-40 702) O2 SATURATION VENOUS (BEAKER) 65.0 % 40.0-70.0 (test code = 703) HCO3 VENOUS (BEAKER) (test code = 26 mmol/L 21-29 705) BASE EXCESS VENOUS (BEAKER) (test 0.7 mmol/L -2.0-3.0 code = 704) PATIENT TEMPERATURE (BEAKER) (test 39.0 code = 1818) LACTIC ACID, [id number] 08:57:54 Test Item Value Reference Range Interpretation Comments LACTATE BLOOD 2.20 mmol/L See_Comment HH [Automated me ssage] VENOUS (2) (BEAKER) The syst em which (test code = 2872) generated this result transmitted ref erence range: 0.50-<2. 00. The reference range was not used to interpr et this result as normal/abnormal . LACTIC ACID, [id number] 07:58:58 Test Item Value Reference Range Interpretation Comments LACTATE BLOOD 3.42 mmol/L See_Comment HH [Automated me ssage] VENOUS (2) (BEAKER) The syst em which (test code = 2872) generated this result transmitted ref erence range: 0.50-<2. 00. The reference range was not used to interpr et this result as normal/abnormal . Campus Security Officer ID - LEIGHANHOperator ID - Daierator ID - VANANHOperator ID - BRAXTONH CBC W/PLT COUNT & AUTO [id number] 07:58:12 Test Item Value Reference Range Interpretation Comments WHITE BLOOD CELL COUNT 26.1 K/ L 4.0-10.0 H This is a corrected (BEAKER) (test code = result . Previous 775) result was 25.9 K/ L on 11/30/2022 a t 0428 CDT RED BLOOD CELL COUNT 4.50 M/ L 4.20-5.80 This is a corrected (BEAKER) (test code = result . Previous 761) result was 4.48 M/ L on 11/30/2022 a t 0428 CDT HEMOGLOBIN (BEAKER) 11.5 GM/DL 13.0-16.8 L (test code = 410) HEMATOCRIT (BEAKER) 36.9 % 36.0-50.0 This is a corrected (test code = 411) result. Pr evious result was 36.6 % on 11/30/2022 at 0428 CDT MEAN CORPUSCULAR VOLUME 82 fL 82-99 (BEAKER) (test code = 753) MEAN CORPUSCULAR 25.6 pg 27.0-33.0 L This is a c orrected HEMOGLOBIN (BEAKER) result. Previous (test code = 751) result was 25.7 pg on 11/30/2022 at 0428 CDT MEAN CORPUSCULAR 31.2 GM/DL 32.0-36.0 L This is a c orrected HEMOGLOBIN CONC result. Prev ious (BEAKER) (test code = result was 31.4 752) GM/DL on 12/01/19 23 at 0428 CDT RED CELL DISTRIBUTION 17.2 % 12.0-15.0 H WIDTH (BEAKER) (test code = 412) PLATELET COUNT (BEAKER) 460 K/CU MM 150-430 H This is a corrected (test code = 756) result. Pr evious result was 472 K/CU MM on 11/30/2022 at 0428 CDT MEAN PLATELET VOLUME 11.3 fL 6.0-11.5 This is a corrected (BEAKER) (test code = result . Previous 754) result was 11.2 fL on 11/30/2022 at 0428 CDT NUCLEATED RED BLOOD 0 /100 WBC 0-0 CELLS (BEAKER) (test code = 413) (MANUAL DIFFERENTIAL)2022-11-30 07:58:12 Test Item Value Reference Range Interpretation Comments NEUTROPHILS - REL (DIFF) (BEAKER) 49 % (test code = 1359) LYMPHOCYTES - REL (DIFF) (BEAKER) 22 % (test code = 1360) MONOCYTES - REL (DIFF) (BEAKER) 4 % (test code = 1361) BANDS - REL (DIFF) (BEAKER) (test 25 % 0-10 H code = 1348) NEUTROPHILS - ABS (DIFF) (BEAKER) 12.79 K/ L 1.80-8.00 H (test code = 1365) LYMPHOCYTES - ABS (DIFF) (BEAKER) 5.74 K/ L 1.48-4.50 H (test code = 1366) MONOCYTES - ABS (DIFF) (BEAKER) 1.04 K/ L 0.00-1.30 (test code = 1367) BANDS-ABS (DIFF) (BEAKER) (test 6.5 K/ L 0.0-0.8 H code = 1349) TOTAL COUNTED (BEAKER) (test code 100 = 1351) BANDS + SEGMENTED NEUTROPHILS 19.31 (BEAKER) (test code = 1352) WBC MORPHOLOGY (BEAKER) (test code Normal = 487) PLT MORPHOLOGY (BEAKER) (test code Normal = 486) ANISOCYTOSIS (BEAKER) (test code = 1+ few 961) RAD, ABDOMEN/KUB 1 VIEW [id number] 06:40:00Reason for exam:->[facility] : 1965 Sex: MFINAL REPORT EXAM: KUB CLINICAL HISTORY: Feeding tube FINDINGS: A gastrostomy tube is noted overlying the region of the midline upper abdomen. There is nonobstructive bowel gas pattern. Aright common femoral catheter is noted. The regional osseous structures are unremarkable. Signed: Lupillo Grace MDReport Verified Date/Time: 11/30/2022 06:40:12 Urinalysis Microscopic [id number] 06:27:41 Test Item Value Reference Range Interpretation Comments RBC, UA (test code = 10-20 See_Comment [Autom ated message] 799-7) The system [employer] generated this result transmitted ref erence range: /HPF. Th e reference range was not used to int erpret this result as normal/abnormal . WBC, UA (test code = >100 See_Comment [Autom ated message] 26218-6) The system [employer] generated this result transmitted ref erence range: /HPF. Th e reference range was not used to int erpret this result as normal/abnormal . Bacteria, UA (test Moderate code = 33271-7) SQUAMOUS EPITHELIAL None Seen See_Comment [Automa mendoza message] (test code = 22013-8) The sy stem which generated this result transmitted ref erence range: /HPF. Th e reference range was not used to int erpret this result as normal/abnormal . Yeast (test code = Moderate 62430-6) [facility] [id number] 06:27:41 Test Item Value Reference Range Interpretation Comments RBC, UA (test code = 10-20 See_Comment [Autom ated message] 799-7) The system [employer] generated this result transmitted ref erence range: /HPF. Th e reference range was not used to int erpret this result as normal/abnormal . WBC, UA (test code = >100 See_Comment [Autom ated message] 51188-8) The system [employer] generated this result transmitted ref erence range: /HPF. Th e reference range was not used to int erpret this result as normal/abnormal . Bacteria, UA (test Moderate code = 00450-5) SQUAMOUS EPITHELIAL None Seen See_Comment [Automa mendoza message] (test code = 34594-3) The sy stem which generated this result transmitted ref erence range: /HPF. Th e reference range was not used to int erpret this result as normal/abnormal . Yeast (test code = Moderate 70636-2) [facility] [id number] 06:27:41 Test Item Value Reference Range Interpretation Comments RBC, UA (test code = 10-20 See_Comment [Autom ated message] 799-7) The system [employer] generated this result transmitted ref erence range: /HPF. Th e reference range was not used to int erpret this result as normal/abnormal . WBC, UA (test code = >100 See_Comment [Autom ated message] 78897-7) The system [employer] generated this result transmitted ref erence range: /HPF. Th e reference range was not used to int erpret this result as normal/abnormal . Bacteria, UA (test Moderate code = 37006-8) SQUAMOUS EPITHELIAL None Seen See_Comment [Automa mendoza message] (test code = 51257-2) The sy stem which generated this result transmitted ref erence range: /HPF. Th e reference range was not used to int erpret this result as normal/abnormal . Yeast (test code = Moderate 87561-0) [facility] [id number] 06:27:41 Test Item Value Reference Range Interpretation Comments RBC, UA (test code = 10-20 See_Comment [Autom ated message] 799-7) The system [employer] generated this result transmitted ref erence range: /HPF. Th e reference range was not used to int erpret this result as normal/abnormal . WBC, UA (test code = >100 See_Comment [Autom ated message] 61908-6) The system [employer] generated this result transmitted ref erence range: /HPF. Th e reference range was not used to int erpret this result as normal/abnormal . Bacteria, UA (test Moderate code = 46055-2) SQUAMOUS EPITHELIAL None Seen See_Comment [Automa mendoza message] (test code = 73819-4) The sy stem which generated this result transmitted ref erence range: /HPF. Th e reference range was not used to int erpret this result as normal/abnormal . Yeast (test code = Moderate 38183-3) [facility] [id number] 06:27:41 Test Item Value Reference Range Interpretation Comments RBC, UA (test code = 10-20 See_Comment [Autom ated message] 799-7) The system [employer] generated this result transmitted ref erence range: /HPF. Th e reference range was not used to int erpret this result as normal/abnormal . WBC, UA (test code = >100 See_Comment [Autom ated message] 66607-9) The system [employer] generated this result transmitted ref erence range: /HPF. Th e reference range was not used to int erpret this result as normal/abnormal . Bacteria, UA (test Moderate code = 38597-4) SQUAMOUS EPITHELIAL None Seen See_Comment [Automa mendoza message] (test code = 37603-3) The sy stem which generated this result transmitted ref erence range: /HPF. Th e reference range was not used to int erpret this result as normal/abnormal . Yeast (test code = Moderate 18318-5) [facility] [id number] 06:27:41 Test Item Value Reference Range Interpretation Comments RBC, UA (test code = 10-20 See_Comment [Autom ated message] 799-7) The system [employer] generated this result transmitted ref erence range: /HPF. Th e reference range was not used to int erpret this result as normal/abnormal . WBC, UA (test code = >100 See_Comment [Autom ated message] 95892-4) The system [employer] generated this result transmitted ref erence range: /HPF. Th e reference range was not used to int erpret this result as normal/abnormal . Bacteria, UA (test Moderate code = 60563-5) SQUAMOUS EPITHELIAL None Seen See_Comment [Automa mendoza message] (test code = 59324-8) The sy stem which generated this result transmitted ref erence range: /HPF. Th e reference range was not used to int erpret this result as normal/abnormal . Yeast (test code = Moderate 99765-1) [facility] [id number] 06:27:41 Test Item Value Reference Range Interpretation Comments RBC, UA (test code = 10-20 See_Comment [Autom ated message] 799-7) The system [employer] generated this result transmitted ref erence range: /HPF. Th e reference range was not used to int erpret this result as normal/abnormal . WBC, UA (test code = >100 See_Comment [Autom ated message] 36825-0) The system [employer] generated this result transmitted ref erence range: /HPF. Th e reference range was not used to int erpret this result as normal/abnormal . Bacteria, UA (test Moderate code = 83797-2) SQUAMOUS EPITHELIAL None Seen See_Comment [Automa mendoza message] (test code = 75332-8) The sy stem which generated this result transmitted ref erence range: /HPF. Th e reference range was not used to int erpret this result as normal/abnormal . Yeast (test code = Moderate 97149-2) [facility] [id number] 06:27:41 Test Item Value Reference Range Interpretation Comments RBC, UA (test code = 10-20 See_Comment [Autom ated message] 799-7) The system [employer] generated this result transmitted ref erence range: /HPF. Th e reference range was not used to int erpret this result as normal/abnormal . WBC, UA (test code = >100 See_Comment [Autom ated message] 60176-8) The system [employer] generated this result transmitted ref erence range: /HPF. Th e reference range was not used to int erpret this result as normal/abnormal . Bacteria, UA (test Moderate code = 26080-3) SQUAMOUS EPITHELIAL None Seen See_Comment [Automa mendoza message] (test code = 16041-1) The sy stem which generated this result transmitted ref erence range: /HPF. Th e reference range was not used to int erpret this result as normal/abnormal . Yeast (test code = Moderate 19703-8) [facility] [id number] 06:27:41 Test Item Value Reference Range Interpretation Comments RBC, UA (test code = 10-20 See_Comment [Autom ated message] 799-7) The system [employer] generated this result transmitted ref erence range: /HPF. Th e reference range was not used to int erpret this result as normal/abnormal . WBC, UA (test code = >100 See_Comment [Autom ated message] 52423-8) The system [employer] generated this result transmitted ref erence range: /HPF. Th e reference range was not used to int erpret this result as normal/abnormal . Bacteria, UA (test Moderate code = 21000-8) SQUAMOUS EPITHELIAL None Seen See_Comment [Automa mendoza message] (test code = 35881-6) The sy stem which generated this result transmitted ref erence range: /HPF. Th e reference range was not used to int erpret this result as normal/abnormal . Yeast (test code = Moderate 81017-5) [facility] [id number] 06:27:41 Test Item Value Reference Range Interpretation Comments RBC, UA (test code = 10-20 See_Comment [Autom ated message] 799-7) The system [employer] generated this result transmitted ref erence range: /HPF. Th e reference range was not used to int erpret this result as normal/abnormal . WBC, UA (test code = >100 See_Comment [Autom ated message] 66225-2) The system [employer] generated this result transmitted ref erence range: /HPF. Th e reference range was not used to int erpret this result as normal/abnormal . Bacteria, UA (test Moderate code = 62632-6) SQUAMOUS EPITHELIAL None Seen See_Comment [Automa mendoza message] (test code = 42323-7) The sy stem which generated this result transmitted ref erence range: /HPF. Th e reference range was not used to int erpret this result as normal/abnormal . Yeast (test code = Moderate 59341-9) [facility] [id number] 06:27:41 Test Item Value Reference Range Interpretation Comments RBC, UA (test code = 10-20 See_Comment [Autom ated message] 799-7) The system [employer] generated this result transmitted ref erence range: /HPF. Th e reference range was not used to int erpret this result as normal/abnormal . WBC, UA (test code = >100 See_Comment [Autom ated message] 89548-5) The system [employer] generated this result transmitted ref erence range: /HPF. Th e reference range was not used to int erpret this result as normal/abnormal . Bacteria, UA (test Moderate code = 53710-3) SQUAMOUS EPITHELIAL None Seen See_Comment [Automa mendoza message] (test code = 33211-0) The sy stem which generated this result transmitted ref erence range: /HPF. Th e reference range was not used to int erpret this result as normal/abnormal . Yeast (test code = Moderate 50990-9) [facility] [id number] 06:27:41 Test Item Value Reference Range Interpretation Comments RBC, UA (test code = 10-20 See_Comment [Autom ated message] 799-7) The system [employer] generated this result transmitted ref erence range: /HPF. Th e reference range was not used to int erpret this result as normal/abnormal . WBC, UA (test code = >100 See_Comment [Autom ated message] 21335-2) The system [employer] generated this result transmitted ref erence range: /HPF. Th e reference range was not used to int erpret this result as normal/abnormal . Bacteria, UA (test Moderate code = 24792-5) SQUAMOUS EPITHELIAL None Seen See_Comment [Automa mendoza message] (test code = 38737-8) The sy stem which generated this result transmitted ref erence range: /HPF. Th e reference range was not used to int erpret this result as normal/abnormal . Yeast (test code = Moderate 72254-4) [facility] [id number] 06:27:41 Test Item Value Reference Range Interpretation Comments RBC, UA (test code = 10-20 See_Comment [Autom ated message] 799-7) The system [employer] generated this result transmitted ref erence range: /HPF. Th e reference range was not used to int erpret this result as normal/abnormal . WBC, UA (test code = >100 See_Comment [Autom ated message] 20547-2) The system [employer] generated this result transmitted ref erence range: /HPF. Th e reference range was not used to int erpret this result as normal/abnormal . Bacteria, UA (test Moderate code = 09051-3) SQUAMOUS EPITHELIAL None Seen See_Comment [Automa mendoza message] (test code = 36643-6) The sy stem which generated this result transmitted ref erence range: /HPF. Th e reference range was not used to int erpret this result as normal/abnormal . Yeast (test code = Moderate 87442-9) [facility] [id number] 06:27:41 Test Item Value Reference Range Interpretation Comments RBC, UA (test code = 10-20 See_Comment [Autom ated message] 799-7) The system [employer] generated this result transmitted ref erence range: /HPF. Th e reference range was not used to int erpret this result as normal/abnormal . WBC, UA (test code = >100 See_Comment [Autom ated message] 17620-9) The system [employer] generated this result transmitted ref erence range: /HPF. Th e reference range was not used to int erpret this result as normal/abnormal . Bacteria, UA (test Moderate code = 87325-5) SQUAMOUS EPITHELIAL None Seen See_Comment [Automa mendoza message] (test code = 32427-2) The sy stem which generated this result transmitted ref erence range: /HPF. Th e reference range was not used to int erpret this result as normal/abnormal . Yeast (test code = Moderate 19666-2) [facility] [id number] 06:27:41 Test Item Value Reference Range Interpretation Comments RBC, UA (test code = 10-20 See_Comment [Autom ated message] 799-7) The system [employer] generated this result transmitted ref erence range: /HPF. Th e reference range was not used to int erpret this result as normal/abnormal . WBC, UA (test code = >100 See_Comment [Autom ated message] 44458-7) The system [employer] generated this result transmitted ref erence range: /HPF. Th e reference range was not used to int erpret this result as normal/abnormal . Bacteria, UA (test Moderate code = 43443-4) SQUAMOUS EPITHELIAL None Seen See_Comment [Automa mendoza message] (test code = 89241-0) The sy stem which generated this result transmitted ref erence range: /HPF. Th e reference range was not used to int erpret this result as normal/abnormal . Yeast (test code = Moderate 11756-3) [facility] [id number] 06:27:41 Test Item Value Reference Range Interpretation Comments RBC, UA (test code = 10-20 See_Comment [Autom ated message] 799-7) The system [employer] generated this result transmitted ref erence range: /HPF. Th e reference range was not used to int erpret this result as normal/abnormal . WBC, UA (test code = >100 See_Comment [Autom ated message] 90541-9) The system [employer] generated this result transmitted ref erence range: /HPF. Th e reference range was not used to int erpret this result as normal/abnormal . Bacteria, UA (test Moderate code = 20394-4) SQUAMOUS EPITHELIAL None Seen See_Comment [Automa mendoza message] (test code = 12304-1) The sy stem which generated this result transmitted ref erence range: /HPF. Th e reference range was not used to int erpret this result as normal/abnormal . Yeast (test code = Moderate 63401-3) [facility] [id number] 06:27:41 Test Item Value Reference Range Interpretation Comments RBC, UA (test code = 10-20 See_Comment [Autom ated message] 799-7) The system [employer] generated this result transmitted ref erence range: /HPF. Th e reference range was not used to int erpret this result as normal/abnormal . WBC, UA (test code = >100 See_Comment [Autom ated message] 69559-1) The system [employer] generated this result transmitted ref erence range: /HPF. Th e reference range was not used to int erpret this result as normal/abnormal . Bacteria, UA (test Moderate code = 16424-0) SQUAMOUS EPITHELIAL None Seen See_Comment [Automa mendoza message] (test code = 70741-3) The sy stem which generated this result transmitted ref erence range: /HPF. Th e reference range was not used to int erpret this result as normal/abnormal . Yeast (test code = Moderate 06016-8) [facility] Microscopic [id number] 06:27:41 Test Item Value Reference Range Interpretation Comments RBC, UA (test code = 10-20 See_Comment [Autom ated message] 799-7) The system [employer] generated this result transmitted ref erence range: /HPF. Th e reference range was not used to int erpret this result as normal/abnormal . WBC, UA (test code = >100 See_Comment [Autom ated message] 16929-1) The system [employer] generated this result transmitted ref erence range: /HPF. Th e reference range was not used to int erpret this result as normal/abnormal . Bacteria, UA (test Moderate code = 87368-6) SQUAMOUS EPITHELIAL None Seen See_Comment [Automa mendoza message] (test code = 91866-7) The sy stem which generated this result transmitted ref erence range: /HPF. Th e reference range was not used to int erpret this result as normal/abnormal . Yeast (test code = Moderate 64075-5) [facility] [id number] 06:27:41 Test Item Value Reference Range Interpretation Comments RBC, UA (test code = 10-20 See_Comment [Autom ated message] 799-7) The system [employer] generated this result transmitted ref erence range: /HPF. Th e reference range was not used to int erpret this result as normal/abnormal . WBC, UA (test code = >100 See_Comment [Autom ated message] 31409-3) The system [employer] generated this result transmitted ref erence range: /HPF. Th e reference range was not used to int erpret this result as normal/abnormal . Bacteria, UA (test Moderate code = 44698-8) SQUAMOUS EPITHELIAL None Seen See_Comment [Automa mendoza message] (test code = 36038-5) The sy stem which generated this result transmitted ref erence range: /HPF. Th e reference range was not used to int erpret this result as normal/abnormal . Yeast (test code = Moderate 46374-3) [facility] [id number] 06:27:41 Test Item Value Reference Range Interpretation Comments RBC, UA (test code = 10-20 See_Comment [Autom ated message] 799-7) The system [employer] generated this result transmitted ref erence range: /HPF. Th e reference range was not used to int erpret this result as normal/abnormal . WBC, UA (test code = >100 See_Comment [Autom ated message] 76767-4) The system [employer] generated this result transmitted ref erence range: /HPF. Th e reference range was not used to int erpret this result as normal/abnormal . Bacteria, UA (test Moderate code = 53392-2) SQUAMOUS EPITHELIAL None Seen See_Comment [Automa mendoza message] (test code = 12461-9) The sy stem which generated this result transmitted ref erence range: /HPF. Th e reference range was not used to int erpret this result as normal/abnormal . Yeast (test code = Moderate 65311-5) [facility] [id number] 06:27:41 Test Item Value Reference Range Interpretation Comments RBC, UA (test code = 10-20 See_Comment [Autom ated message] 799-7) The system [employer] generated this result transmitted ref erence range: /HPF. Th e reference range was not used to int erpret this result as normal/abnormal . WBC, UA (test code = >100 See_Comment [Autom ated message] 72167-1) The system [employer] generated this result transmitted ref erence range: /HPF. Th e reference range was not used to int erpret this result as normal/abnormal . Bacteria, UA (test Moderate code = 91467-3) SQUAMOUS EPITHELIAL None Seen See_Comment [Automa mendoza message] (test code = 56852-7) The sy stem which generated this result transmitted ref erence range: /HPF. Th e reference range was not used to int erpret this result as normal/abnormal . Yeast (test code = Moderate 49878-0) [facility] [id number] 06:27:41 Test Item Value Reference Range Interpretation Comments RBC, UA (test code = 10-20 See_Comment [Autom ated message] 799-7) The system [employer] generated this result transmitted ref erence range: /HPF. Th e reference range was not used to int erpret this result as normal/abnormal . WBC, UA (test code = >100 See_Comment [Autom ated message] 82736-8) The system [employer] generated this result transmitted ref erence range: /HPF. Th e reference range was not used to int erpret this result as normal/abnormal . Bacteria, UA (test Moderate code = 07994-6) SQUAMOUS EPITHELIAL None Seen See_Comment [Automa mendoza message] (test code = 64572-6) The sy stem which generated this result transmitted ref erence range: /HPF. Th e reference range was not used to int erpret this result as normal/abnormal . Yeast (test code = Moderate 23861-9) [facility] [id number] 06:27:41 Test Item Value Reference Range Interpretation Comments RBC, UA (test code = 10-20 See_Comment [Autom ated message] 799-7) The system [employer] generated this result transmitted ref erence range: /HPF. Th e reference range was not used to int erpret this result as normal/abnormal . WBC, UA (test code = >100 See_Comment [Autom ated message] 67973-9) The system [employer] generated this result transmitted ref erence range: /HPF. Th e reference range was not used to int erpret this result as normal/abnormal . Bacteria, UA (test Moderate code = 00238-2) SQUAMOUS EPITHELIAL None Seen See_Comment [Automa mendoza message] (test code = 10564-9) The sy stem which generated this result transmitted ref erence range: /HPF. Th e reference range was not used to int erpret this result as normal/abnormal . Yeast (test code = Moderate 98487-2) [facility] [id number] 06:27:41 Test Item Value Reference Range Interpretation Comments RBC, UA (test code = 10-20 See_Comment [Autom ated message] 799-7) The system [employer] generated this result transmitted ref erence range: /HPF. Th e reference range was not used to int erpret this result as normal/abnormal . WBC, UA (test code = >100 See_Comment [Autom ated message] 75719-3) The system [employer] generated this result transmitted ref erence range: /HPF. Th e reference range was not used to int erpret this result as normal/abnormal . Bacteria, UA (test Moderate code = 36283-4) SQUAMOUS EPITHELIAL None Seen See_Comment [Automa mendoza message] (test code = 55585-5) The sy stem which generated this result transmitted ref erence range: /HPF. Th e reference range was not used to int erpret this result as normal/abnormal . Yeast (test code = Moderate 09941-0) [facility] [id number] 06:27:41 Test Item Value Reference Range Interpretation Comments RBC, UA (test code = 10-20 See_Comment [Autom ated message] 799-7) The system [employer] generated this result transmitted ref erence range: /HPF. Th e reference range was not used to int erpret this result as normal/abnormal . WBC, UA (test code = >100 See_Comment [Autom ated message] 38290-3) The system [employer] generated this result transmitted ref erence range: /HPF. Th e reference range was not used to int erpret this result as normal/abnormal . Bacteria, UA (test Moderate code = 06024-1) SQUAMOUS EPITHELIAL None Seen See_Comment [Automa mendoza message] (test code = 03425-5) The sy stem which generated this result transmitted ref erence range: /HPF. Th e reference range was not used to int erpret this result as normal/abnormal . Yeast (test code = Moderate 32894-9) [facility] [id number] 06:27:41 Test Item Value Reference Range Interpretation Comments RBC, UA (test code = 10-20 See_Comment [Autom ated message] 799-7) The system [employer] generated this result transmitted ref erence range: /HPF. Th e reference range was not used to int erpret this result as normal/abnormal . WBC, UA (test code = >100 See_Comment [Autom ated message] 78072-7) The system [employer] generated this result transmitted ref erence range: /HPF. Th e reference range was not used to int erpret this result as normal/abnormal . Bacteria, UA (test Moderate code = 69594-8) SQUAMOUS EPITHELIAL None Seen See_Comment [Automa mendoza message] (test code = 67537-6) The sy stem which generated this result transmitted ref erence range: /HPF. Th e reference range was not used to int erpret this result as normal/abnormal . Yeast (test code = Moderate 44841-9) [facility] [id number] 06:27:41 Test Item Value Reference Range Interpretation Comments RBC, UA (test code = 10-20 See_Comment [Autom ated message] 799-7) The system [employer] generated this result transmitted ref erence range: /HPF. Th e reference range was not used to int erpret this result as normal/abnormal . WBC, UA (test code = >100 See_Comment [Autom ated message] 60423-0) The system [employer] generated this result transmitted ref erence range: /HPF. Th e reference range was not used to int erpret this result as normal/abnormal . Bacteria, UA (test Moderate code = 87150-0) SQUAMOUS EPITHELIAL None Seen See_Comment [Automa mendoza message] (test code = 80939-1) The sy stem which generated this result transmitted ref erence range: /HPF. Th e reference range was not used to int erpret this result as normal/abnormal . Yeast (test code = Moderate 93828-7) [facility] [id number] 06:27:41 Test Item Value Reference Range Interpretation Comments RBC, UA (test code = 10-20 See_Comment [Autom ated message] 799-7) The system [employer] generated this result transmitted ref erence range: /HPF. Th e reference range was not used to int erpret this result as normal/abnormal . WBC, UA (test code = >100 See_Comment [Autom ated message] 05773-5) The system [employer] generated this result transmitted ref erence range: /HPF. Th e reference range was not used to int erpret this result as normal/abnormal . Bacteria, UA (test Moderate code = 98689-0) SQUAMOUS EPITHELIAL None Seen See_Comment [Automa mendoza message] (test code = 74830-5) The sy stem which generated this result transmitted ref erence range: /HPF. Th e reference range was not used to int erpret this result as normal/abnormal . Yeast (test code = Moderate 79122-4) [facility] [id number] 06:27:41 Test Item Value Reference Range Interpretation Comments RBC, UA (test code = 10-20 See_Comment [Autom ated message] 799-7) The system [employer] generated this result transmitted ref erence range: /HPF. Th e reference range was not used to int erpret this result as normal/abnormal . WBC, UA (test code = >100 See_Comment [Autom ated message] 93552-0) The system [employer] generated this result transmitted ref erence range: /HPF. Th e reference range was not used to int erpret this result as normal/abnormal . Bacteria, UA (test Moderate code = 28802-1) SQUAMOUS EPITHELIAL None Seen See_Comment [Automa mendoza message] (test code = 71421-4) The sy stem which generated this result transmitted ref erence range: /HPF. Th e reference range was not used to int erpret this result as normal/abnormal . Yeast (test code = Moderate 70055-7) [facility] [id number] 06:27:41 Test Item Value Reference Range Interpretation Comments RBC, UA (test code = 10-20 See_Comment [Autom ated message] 799-7) The system [employer] generated this result transmitted ref erence range: /HPF. Th e reference range was not used to int erpret this result as normal/abnormal . WBC, UA (test code = >100 See_Comment [Autom ated message] 63154-2) The system [employer] generated this result transmitted ref erence range: /HPF. Th e reference range was not used to int erpret this result as normal/abnormal . Bacteria, UA (test Moderate code = 83781-2) SQUAMOUS EPITHELIAL None Seen See_Comment [Automa mendoza message] (test code = 30522-3) The sy stem which generated this result transmitted ref erence range: /HPF. Th e reference range was not used to int erpret this result as normal/abnormal . Yeast (test code = Moderate 49320-2) [facility] [id number] 06:27:41 Test Item Value Reference Range Interpretation Comments RBC, UA (test code = 10-20 See_Comment [Autom ated message] 799-7) The system [employer] generated this result transmitted ref erence range: /HPF. Th e reference range was not used to int erpret this result as normal/abnormal . WBC, UA (test code = >100 See_Comment [Autom ated message] 09310-1) The system [employer] generated this result transmitted ref erence range: /HPF. Th e reference range was not used to int erpret this result as normal/abnormal . Bacteria, UA (test Moderate code = 61885-1) SQUAMOUS EPITHELIAL None Seen See_Comment [Automa mendoza message] (test code = 87845-4) The sy stem which generated this result transmitted ref erence range: /HPF. Th e reference range was not used to int erpret this result as normal/abnormal . Yeast (test code = Moderate 81689-8) [facility] [id number] 06:27:41 Test Item Value Reference Range Interpretation Comments RBC, UA (test code = 10-20 See_Comment [Autom ated message] 799-7) The system [employer] generated this result transmitted ref erence range: /HPF. Th e reference range was not used to int erpret this result as normal/abnormal . WBC, UA (test code = >100 See_Comment [Autom ated message] 11955-7) The system [employer] generated this result transmitted ref erence range: /HPF. Th e reference range was not used to int erpret this result as normal/abnormal . Bacteria, UA (test Moderate code = 70064-4) SQUAMOUS EPITHELIAL None Seen See_Comment [Automa mendoza message] (test code = 51974-4) The sy stem which generated this result transmitted ref erence range: /HPF. Th e reference range was not used to int erpret this result as normal/abnormal . Yeast (test code = Moderate 85213-6) [facility] [id number] 06:27:41 Test Item Value Reference Range Interpretation Comments RBC, UA (test code = 10-20 See_Comment [Autom ated message] 799-7) The system [employer] generated this result transmitted ref erence range: /HPF. Th e reference range was not used to int erpret this result as normal/abnormal . WBC, UA (test code = >100 See_Comment [Autom ated message] 89484-5) The system [employer] generated this result transmitted ref erence range: /HPF. Th e reference range was not used to int erpret this result as normal/abnormal . Bacteria, UA (test Moderate code = 67984-8) SQUAMOUS EPITHELIAL None Seen See_Comment [Automa mendoza message] (test code = 95396-1) The sy stem which generated this result transmitted ref erence range: /HPF. Th e reference range was not used to int erpret this result as normal/abnormal . Yeast (test code = Moderate 76043-2) [facility] [id number] 06:27:41 Test Item Value Reference Range Interpretation Comments RBC UA-MANUAL (BEAKER) (test 10-20 /HPF code = 1659) WBC UA-MANUAL (BEAKER) (test >100 /HPF code = 1661) BACTERIA (BEAKER) (test code = Moderate 517) SQUAMOUS EPITHELIAL MANUAL None Seen /HPF (BEAKER) (test code = 1663) YEAST (BEAKER) (test code = Moderate 1585) Urinalysis with Microscopic If [id number] 06:26:45 Test Item Value Reference Range Interpretation Comments Color, UA (test code = 5778-6) Yellow Clarity, UA (test code = 5767-9) Cloudy Specific Desmet, UA (test code = 1.001-1.035 5811-5) pH, UA (test code = 5803-2) 5.0 5.0-8.0 Protein, UA (test code = 14551-6) >=300 mg/dL Negative A Glucose, UA (test code = 365) 100 mg/dL Negative A Ketones, UA (test code = 2514-8) Trace Negative A Bilirubin, UA (test code = Positive Negative A 80451-7) Blood, UA (test code = 41476-3) Moderate Negative A Nitrite, UA (test code = 5802-4) Negative Negative Leukocytes, UA (test code = Moderate Negative A 5799-2) Urobilinogen, UA (test code = 0.2 87796-3) Specimen Source (test code = 2795) Lab Interpretation (test code = Abnormal 84166-6) [facility] If [id number] 06:26:45 Test Item Value Reference Range Interpretation Comments Color, UA (test code = 5778-6) Yellow Clarity, UA (test code = 5767-9) Cloudy Specific Desmet, UA (test code = 1.001-1.035 5811-5) pH, UA (test code = 5803-2) 5.0 5.0-8.0 Protein, UA (test code = 11245-0) >=300 mg/dL Negative A Glucose, UA (test code = 365) 100 mg/dL Negative A Ketones, UA (test code = 2514-8) Trace Negative A Bilirubin, UA (test code = Positive Negative A 22575-6) Blood, UA (test code = 71314-6) Moderate Negative A Nitrite, UA (test code = 5802-4) Negative Negative Leukocytes, UA (test code = Moderate Negative A 5799-2) Urobilinogen, UA (test code = 0.2 44759-0) Specimen Source (test code = 2795) Lab Interpretation (test code = Abnormal 78459-5) [facility] If [id number] 06:26:45 Test Item Value Reference Range Interpretation Comments Color, UA (test code = 5778-6) Yellow Clarity, UA (test code = 5767-9) Cloudy Specific Desmet, UA (test code = 1.001-1.035 5811-5) pH, UA (test code = 5803-2) 5.0 5.0-8.0 Protein, UA (test code = 32790-3) >=300 mg/dL Negative A Glucose, UA (test code = 365) 100 mg/dL Negative A Ketones, UA (test code = 2514-8) Trace Negative A Bilirubin, UA (test code = Positive Negative A 93343-9) Blood, UA (test code = 49882-9) Moderate Negative A Nitrite, UA (test code = 5802-4) Negative Negative Leukocytes, UA (test code = Moderate Negative A 5799-2) Urobilinogen, UA (test code = 0.2 84643-0) Specimen Source (test code = 2795) Lab Interpretation (test code = Abnormal 97635-6) [facility] If [id number] 06:26:45 Test Item Value Reference Range Interpretation Comments Color, UA (test code = 5778-6) Yellow Clarity, UA (test code = 5767-9) Cloudy Specific Desmet, UA (test code = 1.001-1.035 5811-5) pH, UA (test code = 5803-2) 5.0 5.0-8.0 Protein, UA (test code = 27211-1) >=300 mg/dL Negative A Glucose, UA (test code = 365) 100 mg/dL Negative A Ketones, UA (test code = 2514-8) Trace Negative A Bilirubin, UA (test code = Positive Negative A 58852-9) Blood, UA (test code = 40510-3) Moderate Negative A Nitrite, UA (test code = 5802-4) Negative Negative Leukocytes, UA (test code = Moderate Negative A 5799-2) Urobilinogen, UA (test code = 0.2 63906-0) Specimen Source (test code = 2795) Lab Interpretation (test code = Abnormal 90973-1) [facility] If [id number] 06:26:45 Test Item Value Reference Range Interpretation Comments Color, UA (test code = 5778-6) Yellow Clarity, UA (test code = 5767-9) Cloudy Specific Desmet, UA (test code = 1.001-1.035 5811-5) pH, UA (test code = 5803-2) 5.0 5.0-8.0 Protein, UA (test code = 55978-8) >=300 mg/dL Negative A Glucose, UA (test code = 365) 100 mg/dL Negative A Ketones, UA (test code = 2514-8) Trace Negative A Bilirubin, UA (test code = Positive Negative A 67786-8) Blood, UA (test code = 23093-4) Moderate Negative A Nitrite, UA (test code = 5802-4) Negative Negative Leukocytes, UA (test code = Moderate Negative A 5799-2) Urobilinogen, UA (test code = 0.2 78611-5) Specimen Source (test code = 2795) Lab Interpretation (test code = Abnormal 34943-3) [facility] If [id number] 06:26:45 Test Item Value Reference Range Interpretation Comments Color, UA (test code = 5778-6) Yellow Clarity, UA (test code = 5767-9) Cloudy Specific Desmet, UA (test code = 1.001-1.035 5811-5) pH, UA (test code = 5803-2) 5.0 5.0-8.0 Protein, UA (test code = 46849-6) >=300 mg/dL Negative A Glucose, UA (test code = 365) 100 mg/dL Negative A Ketones, UA (test code = 2514-8) Trace Negative A Bilirubin, UA (test code = Positive Negative A 31464-6) Blood, UA (test code = 56417-6) Moderate Negative A Nitrite, UA (test code = 5802-4) Negative Negative Leukocytes, UA (test code = Moderate Negative A 5799-2) Urobilinogen, UA (test code = 0.2 52684-6) Specimen Source (test code = 2795) Lab Interpretation (test code = Abnormal 20390-7) [facility] If [id number] 06:26:45 Test Item Value Reference Range Interpretation Comments Color, UA (test code = 5778-6) Yellow Clarity, UA (test code = 5767-9) Cloudy Specific Desmet, UA (test code = 1.001-1.035 5811-5) pH, UA (test code = 5803-2) 5.0 5.0-8.0 Protein, UA (test code = 03449-5) >=300 mg/dL Negative A Glucose, UA (test code = 365) 100 mg/dL Negative A Ketones, UA (test code = 2514-8) Trace Negative A Bilirubin, UA (test code = Positive Negative A 31753-6) Blood, UA (test code = 04908-6) Moderate Negative A Nitrite, UA (test code = 5802-4) Negative Negative Leukocytes, UA (test code = Moderate Negative A 5799-2) Urobilinogen, UA (test code = 0.2 74471-0) Specimen Source (test code = 2795) Lab Interpretation (test code = Abnormal 45734-7) [facility] If [id number] 06:26:45 Test Item Value Reference Range Interpretation Comments Color, UA (test code = 5778-6) Yellow Clarity, UA (test code = 5767-9) Cloudy Specific Desmet, UA (test code = 1.001-1.035 5811-5) pH, UA (test code = 5803-2) 5.0 5.0-8.0 Protein, UA (test code = 96691-8) >=300 mg/dL Negative A Glucose, UA (test code = 365) 100 mg/dL Negative A Ketones, UA (test code = 2514-8) Trace Negative A Bilirubin, UA (test code = Positive Negative A 14165-1) Blood, UA (test code = 69130-0) Moderate Negative A Nitrite, UA (test code = 5802-4) Negative Negative Leukocytes, UA (test code = Moderate Negative A 5799-2) Urobilinogen, UA (test code = 0.2 11337-4) Specimen Source (test code = 2795) Lab Interpretation (test code = Abnormal 99787-9) [facility] If [id number] 06:26:45 Test Item Value Reference Range Interpretation Comments Color, UA (test code = 5778-6) Yellow Clarity, UA (test code = 5767-9) Cloudy Specific Desmet, UA (test code = 1.001-1.035 5811-5) pH, UA (test code = 5803-2) 5.0 5.0-8.0 Protein, UA (test code = 39339-6) >=300 mg/dL Negative A Glucose, UA (test code = 365) 100 mg/dL Negative A Ketones, UA (test code = 2514-8) Trace Negative A Bilirubin, UA (test code = Positive Negative A 84210-7) Blood, UA (test code = 23802-3) Moderate Negative A Nitrite, UA (test code = 5802-4) Negative Negative Leukocytes, UA (test code = Moderate Negative A 5799-2) Urobilinogen, UA (test code = 0.2 69041-4) Specimen Source (test code = 2795) Lab Interpretation (test code = Abnormal 93755-0) [facility] [id number] 06:26:45 Test Item Value Reference Range Interpretation Comments Color, UA (test code = 5778-6) Yellow Clarity, UA (test code = 5767-9) Cloudy Specific Desmet, UA (test code = 1.001-1.035 5811-5) pH, UA (test code = 5803-2) 5.0 5.0-8.0 Protein, UA (test code = 01548-5) >=300 mg/dL Negative A Glucose, UA (test code = 365) 100 mg/dL Negative A Ketones, UA (test code = 2514-8) Trace Negative A Bilirubin, UA (test code = Positive Negative A 52781-6) Blood, UA (test code = 06065-8) Moderate Negative A Nitrite, UA (test code = 5802-4) Negative Negative Leukocytes, UA (test code = Moderate Negative A 5799-2) Urobilinogen, UA (test code = 0.2 74566-5) Specimen Source (test code = 2795) Lab Interpretation (test code = Abnormal 10898-3) [facility] [id number] 06:26:45 Test Item Value Reference Range Interpretation Comments Color, UA (test code = 5778-6) Yellow Clarity, UA (test code = 5767-9) Cloudy Specific Desmet, UA (test code = 1.001-1.035 5811-5) pH, UA (test code = 5803-2) 5.0 5.0-8.0 Protein, UA (test code = 93790-1) >=300 mg/dL Negative A Glucose, UA (test code = 365) 100 mg/dL Negative A Ketones, UA (test code = 2514-8) Trace Negative A Bilirubin, UA (test code = Positive Negative A 48038-8) Blood, UA (test code = 14920-1) Moderate Negative A Nitrite, UA (test code = 5802-4) Negative Negative Leukocytes, UA (test code = Moderate Negative A 5799-2) Urobilinogen, UA (test code = 0.2 45840-5) Specimen Source (test code = 2795) Lab Interpretation (test code = Abnormal 18045-2) [facility] [id number] 06:26:45 Test Item Value Reference Range Interpretation Comments Color, UA (test code = 5778-6) Yellow Clarity, UA (test code = 5767-9) Cloudy Specific Desmet, UA (test code = 1.001-1.035 5811-5) pH, UA (test code = 5803-2) 5.0 5.0-8.0 Protein, UA (test code = 51286-3) >=300 mg/dL Negative A Glucose, UA (test code = 365) 100 mg/dL Negative A Ketones, UA (test code = 2514-8) Trace Negative A Bilirubin, UA (test code = Positive Negative A 70638-4) Blood, UA (test code = 81904-0) Moderate Negative A Nitrite, UA (test code = 5802-4) Negative Negative Leukocytes, UA (test code = Moderate Negative A 5799-2) Urobilinogen, UA (test code = 0.2 82177-4) Specimen Source (test code = 2795) Lab Interpretation (test code = Abnormal 96518-1) [facility] [id number] 06:26:45 Test Item Value Reference Range Interpretation Comments Color, UA (test code = 5778-6) Yellow Clarity, UA (test code = 5767-9) Cloudy Specific Desmet, UA (test code = 1.001-1.035 5811-5) pH, UA (test code = 5803-2) 5.0 5.0-8.0 Protein, UA (test code = 79848-4) >=300 mg/dL Negative A Glucose, UA (test code = 365) 100 mg/dL Negative A Ketones, UA (test code = 2514-8) Trace Negative A Bilirubin, UA (test code = Positive Negative A 53862-5) Blood, UA (test code = 82549-2) Moderate Negative A Nitrite, UA (test code = 5802-4) Negative Negative Leukocytes, UA (test code = Moderate Negative A 5799-2) Urobilinogen, UA (test code = 0.2 99117-4) Specimen Source (test code = 2795) Lab Interpretation (test code = Abnormal 42121-8) [facility] [id number] 06:26:45 Test Item Value Reference Range Interpretation Comments Color, UA (test code = 5778-6) Yellow Clarity, UA (test code = 5767-9) Cloudy Specific Desmet, UA (test code = 1.001-1.035 5811-5) pH, UA (test code = 5803-2) 5.0 5.0-8.0 Protein, UA (test code = 49167-7) >=300 mg/dL Negative A Glucose, UA (test code = 365) 100 mg/dL Negative A Ketones, UA (test code = 2514-8) Trace Negative A Bilirubin, UA (test code = Positive Negative A 66608-6) Blood, UA (test code = 89347-5) Moderate Negative A Nitrite, UA (test code = 5802-4) Negative Negative Leukocytes, UA (test code = Moderate Negative A 5799-2) Urobilinogen, UA (test code = 0.2 16728-1) Specimen Source (test code = 2795) Lab Interpretation (test code = Abnormal 35113-5) [facility] [id number] 06:26:45 Test Item Value Reference Range Interpretation Comments Color, UA (test code = 5778-6) Yellow Clarity, UA (test code = 5767-9) Cloudy Specific Desmet, UA (test code = 1.001-1.035 5811-5) pH, UA (test code = 5803-2) 5.0 5.0-8.0 Protein, UA (test code = 91623-2) >=300 mg/dL Negative A Glucose, UA (test code = 365) 100 mg/dL Negative A Ketones, UA (test code = 2514-8) Trace Negative A Bilirubin, UA (test code = Positive Negative A 34738-4) Blood, UA (test code = 77187-8) Moderate Negative A Nitrite, UA (test code = 5802-4) Negative Negative Leukocytes, UA (test code = Moderate Negative A 5799-2) Urobilinogen, UA (test code = 0.2 44840-6) Specimen Source (test code = 2795) Lab Interpretation (test code = Abnormal 84005-8) [facility] [id number] 06:26:45 Test Item Value Reference Range Interpretation Comments Color, UA (test code = 5778-6) Yellow Clarity, UA (test code = 5767-9) Cloudy Specific Desmet, UA (test code = 1.001-1.035 5811-5) pH, UA (test code = 5803-2) 5.0 5.0-8.0 Protein, UA (test code = 51371-8) >=300 mg/dL Negative A Glucose, UA (test code = 365) 100 mg/dL Negative A Ketones, UA (test code = 2514-8) Trace Negative A Bilirubin, UA (test code = Positive Negative A 92513-9) Blood, UA (test code = 67805-6) Moderate Negative A Nitrite, UA (test code = 5802-4) Negative Negative Leukocytes, UA (test code = Moderate Negative A 5799-2) Urobilinogen, UA (test code = 0.2 06797-2) Specimen Source (test code = 2795) Lab Interpretation (test code = Abnormal 12983-9) [facility] [id number] 06:26:45 Test Item Value Reference Range Interpretation Comments Color, UA (test code = 5778-6) Yellow Clarity, UA (test code = 5767-9) Cloudy Specific Desmet, UA (test code = 1.001-1.035 5811-5) pH, UA (test code = 5803-2) 5.0 5.0-8.0 Protein, UA (test code = 29117-8) >=300 mg/dL Negative A Glucose, UA (test code = 365) 100 mg/dL Negative A Ketones, UA (test code = 2514-8) Trace Negative A Bilirubin, UA (test code = Positive Negative A 47747-6) Blood, UA (test code = 10836-9) Moderate Negative A Nitrite, UA (test code = 5802-4) Negative Negative Leukocytes, UA (test code = Moderate Negative A 5799-2) Urobilinogen, UA (test code = 0.2 08316-9) Specimen Source (test code = 2795) Lab Interpretation (test code = Abnormal 81553-6) [facility] Niqsjxmis9585-68-86 06:26:45 Test Item Value Reference Range Interpretation Comments Color, UA (test code = 5778-6) Yellow Clarity, UA (test code = 5767-9) Cloudy Specific Desmet, UA (test code = 1.001-1.035 5811-5) pH, UA (test code = 5803-2) 5.0 5.0-8.0 Protein, UA (test code = 98217-5) >=300 mg/dL Negative A Glucose, UA (test code = 365) 100 mg/dL Negative A Ketones, UA (test code = 2514-8) Trace Negative A Bilirubin, UA (test code = Positive Negative A 10598-8) Blood, UA (test code = 87725-6) Moderate Negative A Nitrite, UA (test code = 5802-4) Negative Negative Leukocytes, UA (test code = Moderate Negative A 5799-2) Urobilinogen, UA (test code = 0.2 00468-2) Specimen Source (test code = 2795) Lab Interpretation (test code = Abnormal 69709-4) [facility] [id number] 06:26:45 Test Item Value Reference Range Interpretation Comments Color, UA (test code = 5778-6) Yellow Clarity, UA (test code = 5767-9) Cloudy Specific Desmet, UA (test code = 1.001-1.035 5811-5) pH, UA (test code = 5803-2) 5.0 5.0-8.0 Protein, UA (test code = 95989-5) >=300 mg/dL Negative A Glucose, UA (test code = 365) 100 mg/dL Negative A Ketones, UA (test code = 2514-8) Trace Negative A Bilirubin, UA (test code = Positive Negative A 55282-6) Blood, UA (test code = 75201-6) Moderate Negative A Nitrite, UA (test code = 5802-4) Negative Negative Leukocytes, UA (test code = Moderate Negative A 5799-2) Urobilinogen, UA (test code = 0.2 97369-5) Specimen Source (test code = 2795) Lab Interpretation (test code = Abnormal 11334-4) [facility] [id number] 06:26:45 Test Item Value Reference Range Interpretation Comments Color, UA (test code = 5778-6) Yellow Clarity, UA (test code = 5767-9) Cloudy Specific Desmet, UA (test code = 1.001-1.035 5811-5) pH, UA (test code = 5803-2) 5.0 5.0-8.0 Protein, UA (test code = 16196-2) >=300 mg/dL Negative A Glucose, UA (test code = 365) 100 mg/dL Negative A Ketones, UA (test code = 2514-8) Trace Negative A Bilirubin, UA (test code = Positive Negative A 77647-1) Blood, UA (test code = 44168-9) Moderate Negative A Nitrite, UA (test code = 5802-4) Negative Negative Leukocytes, UA (test code = Moderate Negative A 5799-2) Urobilinogen, UA (test code = 0.2 49356-8) Specimen Source (test code = 2795) Lab Interpretation (test code = Abnormal 60941-5) [facility] [id number] 06:26:45 Test Item Value Reference Range Interpretation Comments Color, UA (test code = 5778-6) Yellow Clarity, UA (test code = 5767-9) Cloudy Specific Desmet, UA (test code = 1.001-1.035 5811-5) pH, UA (test code = 5803-2) 5.0 5.0-8.0 Protein, UA (test code = 04061-9) >=300 mg/dL Negative A Glucose, UA (test code = 365) 100 mg/dL Negative A Ketones, UA (test code = 2514-8) Trace Negative A Bilirubin, UA (test code = Positive Negative A 62878-8) Blood, UA (test code = 23144-5) Moderate Negative A Nitrite, UA (test code = 5802-4) Negative Negative Leukocytes, UA (test code = Moderate Negative A 5799-2) Urobilinogen, UA (test code = 0.2 06860-9) Specimen Source (test code = 2795) Lab Interpretation (test code = Abnormal 60389-1) [facility] [id number] 06:26:45 Test Item Value Reference Range Interpretation Comments Color, UA (test code = 5778-6) Yellow Clarity, UA (test code = 5767-9) Cloudy Specific Desmet, UA (test code = 1.001-1.035 5811-5) pH, UA (test code = 5803-2) 5.0 5.0-8.0 Protein, UA (test code = 53875-0) >=300 mg/dL Negative A Glucose, UA (test code = 365) 100 mg/dL Negative A Ketones, UA (test code = 2514-8) Trace Negative A Bilirubin, UA (test code = Positive Negative A 11808-1) Blood, UA (test code = 70301-5) Moderate Negative A Nitrite, UA (test code = 5802-4) Negative Negative Leukocytes, UA (test code = Moderate Negative A 5799-2) Urobilinogen, UA (test code = 0.2 71060-5) Specimen Source (test code = 2795) Lab Interpretation (test code = Abnormal 65492-2) [facility] [id number] 06:26:45 Test Item Value Reference Range Interpretation Comments Color, UA (test code = 5778-6) Yellow Clarity, UA (test code = 5767-9) Cloudy Specific Desmet, UA (test code = 1.001-1.035 5811-5) pH, UA (test code = 5803-2) 5.0 5.0-8.0 Protein, UA (test code = 79543-6) >=300 mg/dL Negative A Glucose, UA (test code = 365) 100 mg/dL Negative A Ketones, UA (test code = 2514-8) Trace Negative A Bilirubin, UA (test code = Positive Negative A 32366-1) Blood, UA (test code = 33269-9) Moderate Negative A Nitrite, UA (test code = 5802-4) Negative Negative Leukocytes, UA (test code = Moderate Negative A 5799-2) Urobilinogen, UA (test code = 0.2 87139-8) Specimen Source (test code = 2795) Lab Interpretation (test code = Abnormal 94752-2) [facility] [id number] 06:26:45 Test Item Value Reference Range Interpretation Comments Color, UA (test code = 5778-6) Yellow Clarity, UA (test code = 5767-9) Cloudy Specific Desmet, UA (test code = 1.001-1.035 5811-5) pH, UA (test code = 5803-2) 5.0 5.0-8.0 Protein, UA (test code = 70619-8) >=300 mg/dL Negative A Glucose, UA (test code = 365) 100 mg/dL Negative A Ketones, UA (test code = 2514-8) Trace Negative A Bilirubin, UA (test code = Positive Negative A 68240-1) Blood, UA (test code = 31671-6) Moderate Negative A Nitrite, UA (test code = 5802-4) Negative Negative Leukocytes, UA (test code = Moderate Negative A 5799-2) Urobilinogen, UA (test code = 0.2 73748-2) Specimen Source (test code = 2795) Lab Interpretation (test code = Abnormal 50969-4) [facility] [id number] 06:26:45 Test Item Value Reference Range Interpretation Comments Color, UA (test code = 5778-6) Yellow Clarity, UA (test code = 5767-9) Cloudy Specific Desmet, UA (test code = 1.001-1.035 5811-5) pH, UA (test code = 5803-2) 5.0 5.0-8.0 Protein, UA (test code = 75162-9) >=300 mg/dL Negative A Glucose, UA (test code = 365) 100 mg/dL Negative A Ketones, UA (test code = 2514-8) Trace Negative A Bilirubin, UA (test code = Positive Negative A 47966-1) Blood, UA (test code = 85809-4) Moderate Negative A Nitrite, UA (test code = 5802-4) Negative Negative Leukocytes, UA (test code = Moderate Negative A 5799-2) Urobilinogen, UA (test code = 0.2 81954-2) Specimen Source (test code = 2795) Lab Interpretation (test code = Abnormal 12530-6) [facility] [id number] 06:26:45 Test Item Value Reference Range Interpretation Comments Color, UA (test code = 5778-6) Yellow Clarity, UA (test code = 5767-9) Cloudy Specific Desmet, UA (test code = 1.001-1.035 5811-5) pH, UA (test code = 5803-2) 5.0 5.0-8.0 Protein, UA (test code = 83216-8) >=300 mg/dL Negative A Glucose, UA (test code = 365) 100 mg/dL Negative A Ketones, UA (test code = 2514-8) Trace Negative A Bilirubin, UA (test code = Positive Negative A 39547-8) Blood, UA (test code = 91532-2) Moderate Negative A Nitrite, UA (test code = 5802-4) Negative Negative Leukocytes, UA (test code = Moderate Negative A 5799-2) Urobilinogen, UA (test code = 0.2 44792-5) Specimen Source (test code = 2795) Lab Interpretation (test code = Abnormal 36621-2) [facility] [id number] 06:26:45 Test Item Value Reference Range Interpretation Comments Color, UA (test code = 5778-6) Yellow Clarity, UA (test code = 5767-9) Cloudy Specific Desmet, UA (test code = 1.001-1.035 5811-5) pH, UA (test code = 5803-2) 5.0 5.0-8.0 Protein, UA (test code = 70781-8) >=300 mg/dL Negative A Glucose, UA (test code = 365) 100 mg/dL Negative A Ketones, UA (test code = 2514-8) Trace Negative A Bilirubin, UA (test code = Positive Negative A 21429-6) Blood, UA (test code = 83889-9) Moderate Negative A Nitrite, UA (test code = 5802-4) Negative Negative Leukocytes, UA (test code = Moderate Negative A 5799-2) Urobilinogen, UA (test code = 0.2 72022-2) Specimen Source (test code = 2795) Lab Interpretation (test code = Abnormal 11575-1) [facility] Fvpmjpwcy2249-43-52 06:26:45 Test Item Value Reference Range Interpretation Comments Color, UA (test code = 5778-6) Yellow Clarity, UA (test code = 5767-9) Cloudy Specific Desmet, UA (test code = 1.001-1.035 5811-5) pH, UA (test code = 5803-2) 5.0 5.0-8.0 Protein, UA (test code = 78889-6) >=300 mg/dL Negative A Glucose, UA (test code = 365) 100 mg/dL Negative A Ketones, UA (test code = 2514-8) Trace Negative A Bilirubin, UA (test code = Positive Negative A 31216-7) Blood, UA (test code = 08613-2) Moderate Negative A Nitrite, UA (test code = 5802-4) Negative Negative Leukocytes, UA (test code = Moderate Negative A 5799-2) Urobilinogen, UA (test code = 0.2 15226-1) Specimen Source (test code = 2795) Lab Interpretation (test code = Abnormal 42837-9) [facility] [id number] 06:26:45 Test Item Value Reference Range Interpretation Comments Color, UA (test code = 5778-6) Yellow Clarity, UA (test code = 5767-9) Cloudy Specific Desmet, UA (test code = 1.001-1.035 5811-5) pH, UA (test code = 5803-2) 5.0 5.0-8.0 Protein, UA (test code = 89705-8) >=300 mg/dL Negative A Glucose, UA (test code = 365) 100 mg/dL Negative A Ketones, UA (test code = 2514-8) Trace Negative A Bilirubin, UA (test code = Positive Negative A 79222-5) Blood, UA (test code = 24215-6) Moderate Negative A Nitrite, UA (test code = 5802-4) Negative Negative Leukocytes, UA (test code = Moderate Negative A 5799-2) Urobilinogen, UA (test code = 0.2 29241-6) Specimen Source (test code = 2795) Lab Interpretation (test code = Abnormal 91360-7) [facility] [id number] 06:26:45 Test Item Value Reference Range Interpretation Comments Color, UA (test code = 5778-6) Yellow Clarity, UA (test code = 5767-9) Cloudy Specific Desmet, UA (test code = 1.001-1.035 5811-5) pH, UA (test code = 5803-2) 5.0 5.0-8.0 Protein, UA (test code = 73821-9) >=300 mg/dL Negative A Glucose, UA (test code = 365) 100 mg/dL Negative A Ketones, UA (test code = 2514-8) Trace Negative A Bilirubin, UA (test code = Positive Negative A 18735-8) Blood, UA (test code = 33388-5) Moderate Negative A Nitrite, UA (test code = 5802-4) Negative Negative Leukocytes, UA (test code = Moderate Negative A 5799-2) Urobilinogen, UA (test code = 0.2 33181-3) Specimen Source (test code = 2795) Lab Interpretation (test code = Abnormal 48644-4) [facility] [id number] 06:26:45 Test Item Value Reference Range Interpretation Comments Color, UA (test code = 5778-6) Yellow Clarity, UA (test code = 5767-9) Cloudy Specific Desmet, UA (test code = 1.001-1.035 5811-5) pH, UA (test code = 5803-2) 5.0 5.0-8.0 Protein, UA (test code = 40122-7) >=300 mg/dL Negative A Glucose, UA (test code = 365) 100 mg/dL Negative A Ketones, UA (test code = 2514-8) Trace Negative A Bilirubin, UA (test code = Positive Negative A 05362-5) Blood, UA (test code = 55927-1) Moderate Negative A Nitrite, UA (test code = 5802-4) Negative Negative Leukocytes, UA (test code = Moderate Negative A 5799-2) Urobilinogen, UA (test code = 0.2 29261-0) Specimen Source (test code = 2795) Lab Interpretation (test code = Abnormal 35714-2) [facility] [id number] 06:26:45 Test Item Value Reference Range Interpretation Comments Color, UA (test code = 5778-6) Yellow Clarity, UA (test code = 5767-9) Cloudy Specific Desmet, UA (test code = 1.001-1.035 5811-5) pH, UA (test code = 5803-2) 5.0 5.0-8.0 Protein, UA (test code = 31600-3) >=300 mg/dL Negative A Glucose, UA (test code = 365) 100 mg/dL Negative A Ketones, UA (test code = 2514-8) Trace Negative A Bilirubin, UA (test code = Positive Negative A 77355-3) Blood, UA (test code = 36799-4) Moderate Negative A Nitrite, UA (test code = 5802-4) Negative Negative Leukocytes, UA (test code = Moderate Negative A 5799-2) Urobilinogen, UA (test code = 0.2 32705-6) Specimen Source (test code = 2795) Lab Interpretation (test code = Abnormal 40709-2) [facility] [id number] 06:26:45 Test Item Value Reference Range Interpretation Comments Color, UA (test code = 5778-6) Yellow Clarity, UA (test code = 5767-9) Cloudy Specific Desmet, UA (test code = 1.001-1.035 5811-5) pH, UA (test code = 5803-2) 5.0 5.0-8.0 Protein, UA (test code = 34914-1) >=300 mg/dL Negative A Glucose, UA (test code = 365) 100 mg/dL Negative A Ketones, UA (test code = 2514-8) Trace Negative A Bilirubin, UA (test code = Positive Negative A 26585-3) Blood, UA (test code = 08034-1) Moderate Negative A Nitrite, UA (test code = 5802-4) Negative Negative Leukocytes, UA (test code = Moderate Negative A 5799-2) Urobilinogen, UA (test code = 0.2 66032-4) Specimen Source (test code = 2795) Lab Interpretation (test code = Abnormal 20105-5) [facility] [id number] 06:26:45 Test Item Value Reference Range Interpretation Comments COLOR (BEAKER) (test code = 470) Yellow CLARITY (BEAKER) (test code = Cloudy 469) SPECIFIC GRAVITY UA (BEAKER) >= 1.001-1.035 (test code = 468) PH UA (BEAKER) (test code = 467) 5.0 5.0-8.0 PROTEIN UA (BEAKER) (test code = >=300 mg/dL Negative A 464) GLUCOSE UA (BEAKER) (test code = 100 mg/dL Negative A 365) KETONES UA (BEAKER) (test code = Trace Negative A 371) BILIRUBIN UA (BEAKER) (test code Positive Negative A = 462) BLOOD UA (BEAKER) (test code = Moderate Negative A 461) NITRITE UA (BEAKER) (test code = Negative Negative 465) LEUKOCYTE ESTERASE UA (BEAKER) Moderate Negative A (test code = 466) UROBILINOGEN UA (BEAKER) (test 0.2 code = 463) SOURCE(BEAKER) (test code = 2795) Rapid Influenza A&B [id number] 06:16:47 Test Item Value Reference Range Interpretation Comments Rapid Influenza A Antigen Negative Negative, Inconclusive (test code = 20271-5) Rapid influenza B Antigen Negative Negative, Inconclusive (test code = 43188-9) Lab Interpretation (test code Normal = 22926-6) [facility] Influenza A&B [id number] 06:16:47 Test Item Value Reference Range Interpretation Comments Rapid Influenza A Antigen Negative Negative, Inconclusive (test code = 11872-9) Rapid influenza B Antigen Negative Negative, Inconclusive (test code = 84212-4) Lab Interpretation (test code Normal = 79584-9) [facility] Influenza A&B [id number] 06:16:47 Test Item Value Reference Range Interpretation Comments Rapid Influenza A Antigen Negative Negative, Inconclusive (test code = 84247-3) Rapid influenza B Antigen Negative Negative, Inconclusive (test code = 58597-9) Lab Interpretation (test code Normal = 79836-0) [facility] Influenza A&B [id number] 06:16:47 Test Item Value Reference Range Interpretation Comments Rapid Influenza A Antigen Negative Negative, Inconclusive (test code = 38923-9) Rapid influenza B Antigen Negative Negative, Inconclusive (test code = 00263-4) Lab Interpretation (test code Normal = 42952-1) [facility] Influenza A&B [id number] 06:16:47 Test Item Value Reference Range Interpretation Comments Rapid Influenza A Antigen Negative Negative, Inconclusive (test code = 52468-9) Rapid influenza B Antigen Negative Negative, Inconclusive (test code = 13472-2) Lab Interpretation (test code Normal = 99572-9) [facility] Influenza A&B [id number] 06:16:47 Test Item Value Reference Range Interpretation Comments Rapid Influenza A Antigen Negative Negative, Inconclusive (test code = 05123-9) Rapid influenza B Antigen Negative Negative, Inconclusive (test code = 26353-9) Lab Interpretation (test code Normal = 11492-5) [facility] Influenza A&B [id number] 06:16:47 Test Item Value Reference Range Interpretation Comments Rapid Influenza A Antigen Negative Negative, Inconclusive (test code = 73774-1) Rapid influenza B Antigen Negative Negative, Inconclusive (test code = 03025-0) Lab Interpretation (test code Normal = 54406-6) [facility] Influenza A&B [id number] 06:16:47 Test Item Value Reference Range Interpretation Comments Rapid Influenza A Antigen Negative Negative, Inconclusive (test code = 39840-5) Rapid influenza B Antigen Negative Negative, Inconclusive (test code = 74585-9) Lab Interpretation (test code Normal = 09249-2) [facility] Influenza A&B Cggcmi3039-03-15 06:16:47 Test Item Value Reference Range Interpretation Comments Rapid Influenza A Antigen Negative Negative, Inconclusive (test code = 44616-3) Rapid influenza B Antigen Negative Negative, Inconclusive (test code = 81636-6) Lab Interpretation (test code Normal = 01590-0) [facility] Influenza A&B [id number] 06:16:47 Test Item Value Reference Range Interpretation Comments Rapid Influenza A Antigen Negative Negative, Inconclusive (test code = 61002-1) Rapid influenza B Antigen Negative Negative, Inconclusive (test code = 28589-6) Lab Interpretation (test code Normal = 60337-7) [facility] Influenza A&B [id number] 06:16:47 Test Item Value Reference Range Interpretation Comments Rapid Influenza A Antigen Negative Negative, Inconclusive (test code = 17936-7) Rapid influenza B Antigen Negative Negative, Inconclusive (test code = 08707-6) Lab Interpretation (test code Normal = 83363-4) [facility] Influenza A&B [id number] 06:16:47 Test Item Value Reference Range Interpretation Comments Rapid Influenza A Antigen Negative Negative, Inconclusive (test code = 48154-3) Rapid influenza B Antigen Negative Negative, Inconclusive (test code = 80832-8) Lab Interpretation (test code Normal = 24573-5) [facility] Influenza A&B [id number] 06:16:47 Test Item Value Reference Range Interpretation Comments Rapid Influenza A Antigen Negative Negative, Inconclusive (test code = 16653-3) Rapid influenza B Antigen Negative Negative, Inconclusive (test code = 83786-3) Lab Interpretation (test code Normal = 34859-2) [facility] Influenza A&B [id number] 06:16:47 Test Item Value Reference Range Interpretation Comments Rapid Influenza A Antigen Negative Negative, Inconclusive (test code = 22824-2) Rapid influenza B Antigen Negative Negative, Inconclusive (test code = 03044-9) Lab Interpretation (test code Normal = 31417-1) [facility] Influenza A&B [id number] 06:16:47 Test Item Value Reference Range Interpretation Comments Rapid Influenza A Antigen Negative Negative, Inconclusive (test code = 72593-4) Rapid influenza B Antigen Negative Negative, Inconclusive (test code = 12772-5) Lab Interpretation (test code Normal = 21854-4) [facility] [facility] Influenza A&B [id number] 06:16:47 Test Item Value Reference Range Interpretation Comments Rapid Influenza A Antigen Negative Negative, Inconclusive (test code = 08277-8) Rapid influenza B Antigen Negative Negative, Inconclusive (test code = 44332-5) Lab Interpretation (test code Normal = 64323-6) [facility] Influenza A&B [id number] 06:16:47 Test Item Value Reference Range Interpretation Comments Rapid Influenza A Antigen Negative Negative, Inconclusive (test code = 73414-7) Rapid influenza B Antigen Negative Negative, Inconclusive (test code = 31333-0) Lab Interpretation (test code Normal = 24754-0) [facility] Influenza A&B [id number] 06:16:47 Test Item Value Reference Range Interpretation Comments Rapid Influenza A Antigen Negative Negative, Inconclusive (test code = 13753-4) Rapid influenza B Antigen Negative Negative, Inconclusive (test code = 17240-6) Lab Interpretation (test code Normal = 43499-6) [facility] Influenza A&B [id number] 06:16:47 Test Item Value Reference Range Interpretation Comments Rapid Influenza A Antigen Negative Negative, Inconclusive (test code = 22339-5) Rapid influenza B Antigen Negative Negative, Inconclusive (test code = 75096-1) Lab Interpretation (test code Normal = 64080-8) [facility] Influenza A&B [id number] 06:16:47 Test Item Value Reference Range Interpretation Comments Rapid Influenza A Antigen Negative Negative, Inconclusive (test code = 16067-9) Rapid influenza B Antigen Negative Negative, Inconclusive (test code = 07361-2) Lab Interpretation (test code Normal = 33545-1) [facility] Influenza A&B [id number] 06:16:47 Test Item Value Reference Range Interpretation Comments Rapid Influenza A Antigen Negative Negative, Inconclusive (test code = 48425-7) Rapid influenza B Antigen Negative Negative, Inconclusive (test code = 04477-8) Lab Interpretation (test code Normal = 75111-4) [facility] Influenza A&B [id number] 06:16:47 Test Item Value Reference Range Interpretation Comments Rapid Influenza A Antigen Negative Negative, Inconclusive (test code = 76222-7) Rapid influenza B Antigen Negative Negative, Inconclusive (test code = 68921-4) Lab Interpretation (test code Normal = 71765-7) [facility] Influenza A&B [id number] 06:16:47 Test Item Value Reference Range Interpretation Comments Rapid Influenza A Antigen Negative Negative, Inconclusive (test code = 00512-8) Rapid influenza B Antigen Negative Negative, Inconclusive (test code = 07419-5) Lab Interpretation (test code Normal = 55797-9) [facility] Influenza A&B [id number] 06:16:47 Test Item Value Reference Range Interpretation Comments Rapid Influenza A Antigen Negative Negative, Inconclusive (test code = 43532-3) Rapid influenza B Antigen Negative Negative, Inconclusive (test code = 20781-0) Lab Interpretation (test code Normal = 63084-2) [facility] Influenza A&B Atmugd7923-89-26 06:16:47 Test Item Value Reference Range Interpretation Comments Rapid Influenza A Antigen Negative Negative, Inconclusive (test code = 58466-6) Rapid influenza B Antigen Negative Negative, Inconclusive (test code = 36428-3) Lab Interpretation (test code Normal = 08599-0) [facility] Influenza A&B Etbhlp3565-75-39 06:16:47 Test Item Value Reference Range Interpretation Comments Rapid Influenza A Antigen Negative Negative, Inconclusive (test code = 62258-8) Rapid influenza B Antigen Negative Negative, Inconclusive (test code = 78990-0) Lab Interpretation (test code Normal = 45291-1) [facility] Influenza A&B Upszgx9258-20-40 06:16:47 Test Item Value Reference Range Interpretation Comments Rapid Influenza A Antigen Negative Negative, Inconclusive (test code = 68875-0) Rapid influenza B Antigen Negative Negative, Inconclusive (test code = 58440-3) Lab Interpretation (test code Normal = 89310-3) [facility] Influenza A&B [id number] 06:16:47 Test Item Value Reference Range Interpretation Comments Rapid Influenza A Antigen Negative Negative, Inconclusive (test code = 93880-2) Rapid influenza B Antigen Negative Negative, Inconclusive (test code = 82409-5) Lab Interpretation (test code Normal = 52694-4) [facility] Influenza A&B Ilvbsm4248-55-41 06:16:47 Test Item Value Reference Range Interpretation Comments Rapid Influenza A Antigen Negative Negative, Inconclusive (test code = 46465-7) Rapid influenza B Antigen Negative Negative, Inconclusive (test code = 50104-0) Lab Interpretation (test code Normal = 35355-0) [facility] Influenza A&B Vmiwhs4964-06-31 06:16:47 Test Item Value Reference Range Interpretation Comments Rapid Influenza A Antigen Negative Negative, Inconclusive (test code = 81965-3) Rapid influenza B Antigen Negative Negative, Inconclusive (test code = 46949-5) Lab Interpretation (test code Normal = 68174-6) [facility] Influenza A&B [id number] 06:16:47 Test Item Value Reference Range Interpretation Comments Rapid Influenza A Antigen Negative Negative, Inconclusive (test code = 14212-7) Rapid influenza B Antigen Negative Negative, Inconclusive (test code = 91436-6) Lab Interpretation (test code Normal = 85459-2) [facility] Influenza A&B [id number] 06:16:47 Test Item Value Reference Range Interpretation Comments Rapid Influenza A Antigen Negative Negative, Inconclusive (test code = 08136-5) Rapid influenza B Antigen Negative Negative, Inconclusive (test code = 40204-1) Lab Interpretation (test code Normal = 00208-5) [facility] Influenza A&B Ftdnaz9455-72-96 06:16:47 Test Item Value Reference Range Interpretation Comments Rapid Influenza A Antigen Negative Negative, Inconclusive (test code = 84943-8) Rapid influenza B Antigen Negative Negative, Inconclusive (test code = 54891-7) Lab Interpretation (test code Normal = 60086-4) [facility] INFLUENZA A&B [id number] 06:16:47 Test Item Value Reference Range Interpretation Comments RAPID INFLUENZA A AG (BEAKER) Negative Negative, Inconclusive (test code = 1622) RAPID INFLUENZA B AG (BEAKER) Negative Negative, Inconclusive (test code = 1623) Rapid RSV [id number] 06:16:02 Test Item Value Reference Range Interpretation Comments RSV Rapid Ag (test code = Negative Negative, Inconclusive 20775-0) Lab Interpretation (test code Normal = 98757-8) [facility] RSV Lffyimk7649-20-63 06:16:02 Test Item Value Reference Range Interpretation Comments RSV Rapid Ag (test code = Negative Negative, Inconclusive 86586-1) Lab Interpretation (test code Normal = 42524-9) [facility] RSV Zvaajen4608-75-93 06:16:02 Test Item Value Reference Range Interpretation Comments RSV Rapid Ag (test code = Negative Negative, Inconclusive 13437-7) Lab Interpretation (test code Normal = 61544-6) [facility] RSV Vvkktrj5881-09-31 06:16:02 Test Item Value Reference Range Interpretation Comments RSV Rapid Ag (test code = Negative Negative, Inconclusive 60225-0) Lab Interpretation (test code Normal = 10595-8) [facility] RSV Spkrets4561-56-18 06:16:02 Test Item Value Reference Range Interpretation Comments RSV Rapid Ag (test code = Negative Negative, Inconclusive 09574-5) Lab Interpretation (test code Normal = 04264-9) [facility] RSV Xdcxpvm6404-91-09 06:16:02 Test Item Value Reference Range Interpretation Comments RSV Rapid Ag (test code = Negative Negative, Inconclusive 42569-2) Lab Interpretation (test code Normal = 55110-6) [facility] RSV Hdasvet1474-05-53 06:16:02 Test Item Value Reference Range Interpretation Comments RSV Rapid Ag (test code = Negative Negative, Inconclusive 35595-4) Lab Interpretation (test code Normal = 36208-1) [facility] RSV Hfvkptp2734-35-23 06:16:02 Test Item Value Reference Range Interpretation Comments RSV Rapid Ag (test code = Negative Negative, Inconclusive 14192-3) Lab Interpretation (test code Normal = 62159-3) [facility] RSV Ieqayem4288-98-03 06:16:02 Test Item Value Reference Range Interpretation Comments RSV Rapid Ag (test code = Negative Negative, Inconclusive 46885-8) Lab Interpretation (test code Normal = 00964-0) [facility] RSV Hibgukn3779-39-69 06:16:02 Test Item Value Reference Range Interpretation Comments RSV Rapid Ag (test code = Negative Negative, Inconclusive 74647-8) Lab Interpretation (test code Normal = 63937-8) [facility] RSV Zkgcwaw6357-82-07 06:16:02 Test Item Value Reference Range Interpretation Comments RSV Rapid Ag (test code = Negative Negative, Inconclusive 52037-2) Lab Interpretation (test code Normal = 08484-7) [facility] RSV Rufoeyr6810-61-49 06:16:02 Test Item Value Reference Range Interpretation Comments RSV Rapid Ag (test code = Negative Negative, Inconclusive 74868-0) Lab Interpretation (test code Normal = 41551-5) [facility] RSV Vemeefj2703-84-89 06:16:02 Test Item Value Reference Range Interpretation Comments RSV Rapid Ag (test code = Negative Negative, Inconclusive 74467-6) Lab Interpretation (test code Normal = 69995-1) [facility] RSV Sbjwpqm5118-22-53 06:16:02 Test Item Value Reference Range Interpretation Comments RSV Rapid Ag (test code = Negative Negative, Inconclusive 92686-2) Lab Interpretation (test code Normal = 09918-0) [facility] RSV Lqodqlz4311-82-69 06:16:02 Test Item Value Reference Range Interpretation Comments RSV Rapid Ag (test code = Negative Negative, Inconclusive 79055-2) Lab Interpretation (test code Normal = 71558-0) [facility] RSV Rkliubl4685-67-44 06:16:02 Test Item Value Reference Range Interpretation Comments RSV Rapid Ag (test code = Negative Negative, Inconclusive 56758-4) Lab Interpretation (test code Normal = 82694-9) [facility] RSV Yxhhmvx2887-90-49 06:16:02 Test Item Value Reference Range Interpretation Comments RSV Rapid Ag (test code = Negative Negative, Inconclusive 01720-0) Lab Interpretation (test code Normal = 76025-4) [facility] RSV Yvdnsvk3230-90-18 06:16:02 Test Item Value Reference Range Interpretation Comments RSV Rapid Ag (test code = Negative Negative, Inconclusive 96044-6) Lab Interpretation (test code Normal = 91045-3) [facility] RSV Sqryjou1514-14-65 06:16:02 Test Item Value Reference Range Interpretation Comments RSV Rapid Ag (test code = Negative Negative, Inconclusive 85188-5) Lab Interpretation (test code Normal = 69398-1) [facility] RSV Zjauxgw4231-13-44 06:16:02 Test Item Value Reference Range Interpretation Comments RSV Rapid Ag (test code = Negative Negative, Inconclusive 95473-4) Lab Interpretation (test code Normal = 71286-1) [facility] RSV Hazkszh2844-91-93 06:16:02 Test Item Value Reference Range Interpretation Comments RSV Rapid Ag (test code = Negative Negative, Inconclusive 31753-7) Lab Interpretation (test code Normal = 79115-8) [facility] RSV Nvtsqma6931-44-15 06:16:02 Test Item Value Reference Range Interpretation Comments RSV Rapid Ag (test code = Negative Negative, Inconclusive 61405-6) Lab Interpretation (test code Normal = 95802-4) [facility] RSV Ipmtoac6326-38-34 06:16:02 Test Item Value Reference Range Interpretation Comments RSV Rapid Ag (test code = Negative Negative, Inconclusive 82783-4) Lab Interpretation (test code Normal = 52410-9) [facility] RSV Ygggfch4439-11-02 06:16:02 Test Item Value Reference Range Interpretation Comments RSV Rapid Ag (test code = Negative Negative, Inconclusive 75771-5) Lab Interpretation (test code Normal = 75375-1) [facility] RSV Gtatous9365-04-11 06:16:02 Test Item Value Reference Range Interpretation Comments RSV Rapid Ag (test code = Negative Negative, Inconclusive 92691-5) Lab Interpretation (test code Normal = 71032-9) [facility] RSV Ahbwxla0398-52-57 06:16:02 Test Item Value Reference Range Interpretation Comments RSV Rapid Ag (test code = Negative Negative, Inconclusive 24300-7) Lab Interpretation (test code Normal = 83246-9) [facility] RSV Grexjus3256-49-28 06:16:02 Test Item Value Reference Range Interpretation Comments RSV Rapid Ag (test code = Negative Negative, Inconclusive 38516-9) Lab Interpretation (test code Normal = 35984-0) [facility] RSV Gpmguaq4077-66-94 06:16:02 Test Item Value Reference Range Interpretation Comments RSV Rapid Ag (test code = Negative Negative, Inconclusive 21701-8) Lab Interpretation (test code Normal = 42501-1) [facility] RSV Szavqcn5547-50-76 06:16:02 Test Item Value Reference Range Interpretation Comments RSV Rapid Ag (test code = Negative Negative, Inconclusive 80915-4) Lab Interpretation (test code Normal = 92953-4) [facility] RSV Ekkwyse3885-47-77 06:16:02 Test Item Value Reference Range Interpretation Comments RSV Rapid Ag (test code = Negative Negative, Inconclusive 82296-5) Lab Interpretation (test code Normal = 22259-6) [facility] RSV Fkhqbqv3083-81-16 06:16:02 Test Item Value Reference Range Interpretation Comments RSV Rapid Ag (test code = Negative Negative, Inconclusive 51671-1) Lab Interpretation (test code Normal = 25373-2) [facility] RSV Umcfpgu2708-16-69 06:16:02 Test Item Value Reference Range Interpretation Comments RSV Rapid Ag (test code = Negative Negative, Inconclusive 02891-7) Lab Interpretation (test code Normal = 87713-8) [facility] RSV Xoayeen1307-73-95 06:16:02 Test Item Value Reference Range Interpretation Comments RSV Rapid Ag (test code = Negative Negative, Inconclusive 51279-4) Lab Interpretation (test code Normal = 49660-9) [facility] RSV [id number] 06:16:02 Test Item Value Reference Range Interpretation Comments RSV RAPID ANTIGEN (BEAKER) Negative Negative, Inconclusive (test code = 1078) SARS-CoV2/RT-PCR (Symptomatic ONLY)2022-11-30 06:15:02 Test Item Value Reference Interpretation Comments Range SARS-COV2/RT-PCR Negative Negative The SARS-Co V-2 (test code = target nucleic 85729-1) acids are not detected in thi specimen. Negat rocio results do not preclude SARS-C oV-2 infection and should not be u sed as the sole bas is for patient management decisions. Nega tive results must be combined with clinical observations, patient history , and epidemiolog ical information. A false negative result may occu r if a specimen is improperly collected, transported or handled. This ARS CoV-2 test is a rapid, real-miguel e RT-PCR test intended for th e qualitative detection of nucleic acid fr om SARS-CoV-2 in a nasopharyngeal swab specimen colle mendoza from individual s suspected of COVID-19 by the ir healthcare provider. OSBALDO (test code = This test has been OSBALDO) authorized by FDA under an EUA for use by authorized laboratories. This test is only authorized for the duration of the declaration that circumstances exist justifying the authorization of emergency use of in vitro diagnostic tests for detection and/or diagnosis of COVID-19 under Section 564(b)(1) of the Federal Food, Drug and Cosmetic Act, 21 U.S.C. 360bbb-3(b)(1), unless the authorization is terminated or revoked sooner. Fact Sheet for Healthcare Providers: https://www.[employer]/Documents/Xp ert%20Xpress%20SAR S%20CoV-2/Fact%20S heets/302-3802%20S ARS-COV-2%20HEALTH CARE%20PROVIDERS%2 0FACT%20SHEET.pdf Fact Sheet for Healthcare Patients: https://www.[employer]/Documents/Xp ert%20Xpress%20SAR S%20CoV-2/Fact%20S heets/302-3801%20S ARS-COV-2%20PATIEN T%20FACT%20SHEET.p df Lab Interpretation Normal (test code = 92677-7) [facility] 06:15:02 Test Item Value Reference Interpretation Comments Range SARS-COV2/RT-PCR Negative Negative The SARS-Co V-2 (test code = target nucleic 54764-8) acids are not detected in thi s specimen. Negat rocio results do not preclude SARS-C oV-2 infection and should not be u sed as the sole bas is for patient management decisions. Nega tive results must be combined with clinical observations, patient history , and epidemiolog ical information. A false negative result may occu r if a specimen is improperly collected, transported or handled. This S ARS CoV-2 test is a rapid, real-miguel e RT-PCR test intended for th e qualitative detection of nucleic acid fr om SARS-CoV-2 in a nasopharyngeal swab specimen colle mendoza from individual s suspected of COVID-19 by the ir healthcare provider. OSBALDO (test code = This test has been OSBALDO) authorized by FDA under an EUA for use by authorized laboratories. This test is only authorized for the duration of the declaration that circumstances exist justifying the authorization of emergency use of in vitro diagnostic tests for detection and/or diagnosis of COVID-19 under Section 564(b)(1) of the Federal Food, Drug and Cosmetic Act, 21 U.S.C. 360bbb-3(b)(1), unless the authorization is terminated or revoked sooner. Fact Sheet for Healthcare Providers: https://www.[employer]/Documents/Xp ert%20Xpress%20SAR S%20CoV-2/Fact%20S heets/302-3802%20S ARS-COV-2%20HEALTH CARE%20PROVIDERS%2 0FACT%20SHEET.pdf Fact Sheet for Healthcare Patients: https://www.[employer]/Documents/Xp ert%20Xpress%20SAR S%20CoV-2/Fact%20S heets/302-3801%20S ARS-COV-2%20PATIEN T%20FACT%20SHEET.p df Lab Interpretation Normal (test code = 64813-4) [facility]30 06:15:02 Test Item Value Reference Interpretation Comments Range SARS-COV2/RT-PCR Negative Negative The SARS-Co V-2 (test code = target nucleic 05972-4) acids are not detected in thi s specimen. Negat rocio results do not preclude SARS-C oV-2 infection and should not be u sed as the sole bas is for patient management decisions. Nega tive results must be combined with clinical observations, patient history , and epidemiolog ical information. A false negative result may occu r if a specimen is improperly collected, transported or handled. This S ARS CoV-2 test is a rapid, real-miguel e RT-PCR test intended for th e qualitative detection of nucleic acid fr om SARS-CoV-2 in a nasopharyngeal swab specimen collec mendoza from individual s suspected of COVID-19 by the ir healthcare provider. OSBALDO (test code = This test has been OSBALDO) authorized by FDA under an EUA for use by authorized laboratories. This test is only authorized for the duration of the declaration that circumstances exist justifying the authorization of emergency use of in vitro diagnostic tests for detection and/or diagnosis of COVID-19 under Section 564(b)(1) of the Federal Food, Drug and Cosmetic Act, 21 U.S.C. 360bbb-3(b)(1), unless the authorization is terminated or revoked sooner. Fact Sheet for Healthcare Providers: https://www.[employer]/Documents/Xp ert%20Xpress%20SAR S%20CoV-2/Fact%20S heets/302-2172%20S ARS-COV-2%20HEALTH CARE%20PROVIDERS%2 0FACT%20SHEET.pdf Fact Sheet for Healthcare Patients: https://www.[employer]/Documents/Xp ert%20Xpress%20SAR S%20CoV-2/Fact%20S heets/302-3801%20S ARS-COV-2%20PATIEN T%20FACT%20SHEET.p df Lab Interpretation Normal (test code = 82735-6) [facility]2022-11-30 06:15:02 Test Item Value Reference Interpretation Comments Range SARS-COV2/RT-PCR Negative Negative The SARS-Co V-2 (test code = target nucleic 34885-3) acids are not detected in thi s specimen. Negat rocio results do not preclude SARS-C oV-2 infection and should not be u sed as the sole bas is for patient management decisions. Nega tive results must be combined with clinical observations, patient history , and epidemiolog ical information. A false negative result may occu r if a specimen is improperly collected, transported or handled. This S ARS CoV-2 test is a rapid, real-miguel e RT-PCR test intended for th e qualitative detection of nucleic acid fr om SARS-CoV-2 in a nasopharyngeal swab specimen collec mendoza from individual s suspected of COVID-19 by the ir healthcare provider. OSBALDO (test code = This test has been OSBALDO) authorized by FDA under an EUA for use by authorized laboratories. This test is only authorized for the duration of the declaration that circumstances exist justifying the authorization of emergency use of in vitro diagnostic tests for detection and/or diagnosis of COVID-19 under Section 564(b)(1) of the Federal Food, Drug and Cosmetic Act, 21 U.S.C. 360bbb-3(b)(1), unless the authorization is terminated or revoked sooner. Fact Sheet for Healthcare Providers: https://www.[employer]/Documents/Xp ert%20Xpress%20SAR S%20CoV-2/Fact%20S heets/3023802%20S ARS-COV-2%20HEALTH CARE%20PROVIDERS%2 0FACT%20SHEET.pdf Fact Sheet for Healthcare Patients: https://www.[employer]/Documents/Xp ert%20Xpress%20SAR S%20CoV-2/Fact%20S heets/302-3801%20S ARS-COV-2%20PATIEN T%20FACT%20SHEET.p df Lab Interpretation Normal (test code = 97068-4) [facility]2022-11-30 06:15:02 Test Item Value Reference Interpretation Comments Range SARS-COV2/RT-PCR Negative Negative The SARS-Co V-2 (test code = target nucleic 32946-7) acids are not detected in thi s specimen. Negat rocio results do not preclude SARS-C oV-2 infection and should not be u sed as the sole bas is for patient management decisions. Nega tive results must be combined with clinical observations, patient history , and epidemiolog ical information. A false negative result may occu r if a specimen is improperly collected, transported or handled. This S ARS CoV-2 test is a rapid, real-miguel e RT-PCR test intended for th e qualitative detection of nucleic acid fr om SARS-CoV-2 in a nasopharyngeal swab specimen colle mendoza from individual s suspected of COVID-19 by the ir healthcare provider. OSBALDO (test code = This test has been OSBALDO) authorized by FDA under an EUA for use by authorized laboratories. This test is only authorized for the duration of the declaration that circumstances exist justifying the authorization of emergency use of in vitro diagnostic tests for detection and/or diagnosis of COVID-19 under Section 564(b)(1) of the Federal Food, Drug and Cosmetic Act, 21 U.S.C. 360bbb-3(b)(1), unless the authorization is terminated or revoked sooner. Fact Sheet for Healthcare Providers: https://www.[employer]/Documents/Xp ert%20Xpress%20SAR S%20CoV-2/Fact%20S heets/302-3802%20S ARS-COV-2%20HEALTH CARE%20PROVIDERS%2 0FACT%20SHEET.pdf Fact Sheet for Healthcare Patients: https://www.[employer]/Documents/Xp ert%20Xpress%20SAR S%20CoV-2/Fact%20S heets/302-3801%20S ARS-COV-2%20PATIEN T%20FACT%20SHEET.p df Lab Interpretation Normal (test code = 42889-8) [facility]2022-11-30 06:15:02 Test Item Value Reference Interpretation Comments Range SARS-COV2/RT-PCR Negative Negative The SARS-Co V-2 (test code = target nucleic 80216-4) acids are not detected in thi s specimen. Negat rocio results do not preclude SARS-C oV-2 infection and should not be u sed as the sole bas is for patient management decisions. Nega tive results must be combined with clinical observations, patient history , and epidemiolog ical information. A false negative result may occu r if a specimen is improperly collected, transported or handled. This S ARS CoV-2 test is a rapid, real-miguel e RT-PCR test intended for th e qualitative detection of nucleic acid fr om SARS-CoV-2 in a nasopharyngeal swab specimen collec mendoza from individual s suspected of COVID-19 by the ir healthcare provider. OSBALDO (test code = This test has been OSBALDO) authorized by FDA under an EUA for use by authorized laboratories. This test is only authorized for the duration of the declaration that circumstances exist justifying the authorization of emergency use of in vitro diagnostic tests for detection and/or diagnosis of COVID-19 under Section 564(b)(1) of the Federal Food, Drug and Cosmetic Act, 21 U.S.C. 360bbb-3(b)(1), unless the authorization is terminated or revoked sooner. Fact Sheet for Healthcare Providers: https://www.WritePath/Documents/Xp ert%20Xpress%20SAR S%20CoV-2/Fact%20S heets/302-0902%20S ARS-COV-2%20HEALTH CARE%20PROVIDERS%2 0FACT%20SHEET.pdf Fact Sheet for Healthcare Patients: https://www.WritePath/Documents/Xp ert%20Xpress%20SAR S%20CoV-2/Fact%20S heets/3023801%20S ARS-COV-2%20PATIEN T%20FACT%20SHEET.p df Lab Interpretation Normal (test code = 60404-0) [facility] 06:15:02 Test Item Value Reference Interpretation Comments Range SARS-COV2/RT-PCR Negative Negative The SARS-Co V-2 (test code = target nucleic 51283-3) acids are not detected in thi s specimen. Negat rocio results do not preclude SARS-C oV-2 infection and should not be u sed as the sole bas is for patient management decisions. Nega tive results must be combined with clinical observations, patient history , and epidemiolog ical information. A false negative result may occu r if a specimen is improperly collected, transported or handled. This S ARS CoV-2 test is a rapid, real-miguel e RT-PCR test intended for th e qualitative detection of nucleic acid fr om SARS-CoV-2 in a nasopharyngeal swab specimen colle mendoza from individual s suspected of COVID-19 by the ir healthcare provider. OSBALDO (test code = This test has been OSBALDO) authorized by FDA under an EUA for use by authorized laboratories. This test is only authorized for the duration of the declaration that circumstances exist justifying the authorization of emergency use of in vitro diagnostic tests for detection and/or diagnosis of COVID-19 under Section 564(b)(1) of the Federal Food, Drug and Cosmetic Act, 21 U.S.C. 360bbb-3(b)(1), unless the authorization is terminated or revoked sooner. Fact Sheet for Healthcare Providers: https://www.WritePath/Documents/Xp ert%20Xpress%20SAR S%20CoV-2/Fact%20S heets/302-3802%20S ARS-COV-2%20HEALTH CARE%20PROVIDERS%2 0FACT%20SHEET.pdf Fact Sheet for Healthcare Patients: https://www.WritePath/Documents/Xp ert%20Xpress%20SAR S%20CoV-2/Fact%20S heets/302-3801%20S ARS-COV-2%20PATIEN T%20FACT%20SHEET.p df Lab Interpretation Normal (test code = 84533-0) [facility]2022-11-30 06:15:02 Test Item Value Reference Interpretation Comments Range SARS-COV2/RT-PCR Negative Negative The SARS-Co V-2 (test code = target nucleic 76363-0) acids are not detected in thi s specimen. Negat rocio results do not preclude SARS-C oV-2 infection and should not be u sed as the sole bas is for patient management decisions. Nega tive results must be combined with clinical observations, patient history , and epidemiolog ical information. A false negative result may occu r if a specimen is improperly collected, transported or handled. This S ARS CoV-2 test is a rapid, real-miguel e RT-PCR test intended for th e qualitative detection of nucleic acid fr om SARS-CoV-2 in a nasopharyngeal swab specimen collec mendoza from individual s suspected of COVID-19 by the ir healthcare provider. OSBALDO (test code = This test has been OSBALDO) authorized by FDA under an EUA for use by authorized laboratories. This test is only authorized for the duration of the declaration that circumstances exist justifying the authorization of emergency use of in vitro diagnostic tests for detection and/or diagnosis of COVID-19 under Section 564(b)(1) of the Federal Food, Drug and Cosmetic Act, 21 U.S.C. 360bbb-3(b)(1), unless the authorization is terminated or revoked sooner. Fact Sheet for Healthcare Providers: https://www.WritePath/Documents/Xp ert%20Xpress%20SAR S%20CoV-2/Fact%20S heets/302-3802%20S ARS-COV-2%20HEALTH CARE%20PROVIDERS%2 0FACT%20SHEET.pdf Fact Sheet for Healthcare Patients: https://www.WritePath/Documents/Xp ert%20Xpress%20SAR S%20CoV-2/Fact%20S heets/302-3801%20S ARS-COV-2%20PATIEN T%20FACT%20SHEET.p df Lab Interpretation Normal (test code = 81224-1) [facility]2022-11-30 06:15:02 Test Item Value Reference Interpretation Comments Range SARS-COV2/RT-PCR Negative Negative The SARS-Co V-2 (test code = target nucleic 37895-0) acids are not detected in thi s specimen. Negat rocio results do not preclude SARS-C oV-2 infection and should not be u sed as the sole bas is for patient management decisions. Nega tive results must be combined with clinical observations, patient history , and epidemiolog ical information. A false negative result may occu r if a specimen is improperly collected, transported or handled. This S ARS CoV-2 test is a rapid, real-miguel e RT-PCR test intended for th e qualitative detection of nucleic acid fr om SARS-CoV-2 in a nasopharyngeal swab specimen colle mendoza from individual s suspected of COVID-19 by the ir healthcare provider. OSBALDO (test code = This test has been OSBALDO) authorized by FDA under an EUA for use by authorized laboratories. This test is only authorized for the duration of the declaration that circumstances exist justifying the authorization of emergency use of in vitro diagnostic tests for detection and/or diagnosis of COVID-19 under Section 564(b)(1) of the Federal Food, Drug and Cosmetic Act, 21 U.S.C. 360bbb-3(b)(1), unless the authorization is terminated or revoked sooner. Fact Sheet for Healthcare Providers: https://www.WritePath/Documents/Xp ert%20Xpress%20SAR S%20CoV-2/Fact%20S heets/302-3802%20S ARS-COV-2%20HEALTH CARE%20PROVIDERS%2 0FACT%20SHEET.pdf Fact Sheet for Healthcare Patients: https://www.[employer]Path/Documents/Xp ert%20Xpress%20SAR S%20CoV-2/Fact%20S heets/302-3801%20S ARS-COV-2%20PATIEN T%20FACT%20SHEET.p df Lab Interpretation Normal (test code = 99631-6) [facility]2022-11-30 06:15:02 Test Item Value Reference Interpretation Comments Range SARS-COV2/RT-PCR Negative Negative The SARS-Co V-2 (test code = target nucleic 19355-6) acids are not detected in thi s specimen. Negat rocio results do not preclude SARS-C oV-2 infection and should not be u sed as the sole bas is for patient management decisions. Nega tive results must be combined with clinical observations, patient history , and epidemiolog ical information. A false negative result may occu r if a specimen is improperly collected, transported or handled. This S ARS CoV-2 test is a rapid, real-miguel e RT-PCR test intended for th e qualitative detection of nucleic acid fr om SARS-CoV-2 in a nasopharyngeal swab specimen [facility] mendoza from individual s suspected of COVID-19 by the ir healthcare provider. OSBALDO (test code = This test has been OSBALDO) authorized by FDA under an EUA for use by authorized laboratories. This test is only authorized for the duration of the declaration that circumstances exist justifying the authorization of emergency use of in vitro diagnostic tests for detection and/or diagnosis of COVID-19 under Section 564(b)(1) of the Federal Food, Drug and Cosmetic Act, 21 U.S.C. 360bbb-3(b)(1), unless the authorization is terminated or revoked sooner. Fact Sheet for Healthcare Providers: https://www.WritePath/Documents/Xp ert%20Xpress%20SAR S%20CoV-2/Fact%20S heets/302-3802%20S ARS-COV-2%20HEALTH CARE%20PROVIDERS%2 0FACT%20SHEET.pdf Fact Sheet for Healthcare Patients: https://www.WritePath/Documents/Xp ert%20Xpress%20SAR S%20CoV-2/Fact%20S heets/302-3801%20S ARS-COV-2%20PATIEN T%20FACT%20SHEET.p df Lab Interpretation Normal (test code = 28355-6) [facility]2022-11-30 06:15:02 Test Item Value Reference Interpretation Comments Range SARS-COV2/RT-PCR Negative Negative The SARS-Co V-2 (test code = target nucleic 33208-0) acids are not detected in thi s specimen. Negat rocio results do not preclude SARS-C oV-2 infection and should not be u sed as the sole bas is for patient management decisions. Nega tive results must be combined with clinical observations, patient history , and epidemiolog ical information. A false negative result may occu r if a specimen is improperly collected, transported or handled. This S ARS CoV-2 test is a rapid, real-miguel e RT-PCR test intended for th e qualitative detection of nucleic acid fr om SARS-CoV-2 in a nasopharyngeal swab specimen collec mendoza from individual s suspected of COVID-19 by the ir healthcare provider. OSBALDO (test code = This test has been OSBALDO) authorized by FDA under an EUA for use by authorized laboratories. This test is only authorized for the duration of the declaration that circumstances exist justifying the authorization of emergency use of in vitro diagnostic tests for detection and/or diagnosis of COVID-19 under Section 564(b)(1) of the Federal Food, Drug and Cosmetic Act, 21 U.S.C. 360bbb-3(b)(1), unless the authorization is terminated or revoked sooner. Fact Sheet for Healthcare Providers: https://www.WritePath/Documents/Xp ert%20Xpress%20SAR S%20CoV-2/Fact%20S heets/302-3802%20S ARS-COV-2%20HEALTH CARE%20PROVIDERS%2 0FACT%20SHEET.pdf Fact Sheet for Healthcare Patients: https://www.WritePath/Documents/Xp ert%20Xpress%20SAR S%20CoV-2/Fact%20S heets/302-3801%20S ARS-COV-2%20PATIEN T%20FACT%20SHEET.p df Lab Interpretation Normal (test code = 78256-9) [facility]2022-11-30 06:15:02 Test Item Value Reference Interpretation Comments Range SARS-COV2/RT-PCR Negative Negative The SARS-Co V-2 (test code = target nucleic 15233-1) acids are not detected in thi s specimen. Negat rocio results do not preclude SARS-C oV-2 infection and should not be u sed as the sole bas is for patient management decisions. Nega tive results must be combined with clinical observations, patient history , and epidemiolog ical information. A false negative result may occu r if a specimen is improperly collected, transported or handled. This S ARS CoV-2 test is a rapid, real-miguel e RT-PCR test intended for th e qualitative detection of nucleic acid fr om SARS-CoV-2 in a nasopharyngeal swab specimen collec mendoza from individual s suspected of COVID-19 by the ir healthcare provider. OSBALDO (test code = This test has been OSBALDO) authorized by FDA under an EUA for use by authorized laboratories. This test is only authorized for the duration of the declaration that circumstances exist justifying the authorization of emergency use of in vitro diagnostic tests for detection and/or diagnosis of COVID-19 under Section 564(b)(1) of the Federal Food, Drug and Cosmetic Act, 21 U.S.C. 360bbb-3(b)(1), unless the authorization is terminated or revoked sooner. Fact Sheet for Healthcare Providers: https://www.WritePath/Documents/Xp ert%20Xpress%20SAR S%20CoV-2/Fact%20S heets/302-3802%20S ARS-COV-2%20HEALTH CARE%20PROVIDERS%2 0FACT%20SHEET.pdf Fact Sheet for Healthcare Patients: https://wwwTripwolf/Documents/Xp ert%20Xpress%20SAR S%20CoV-2/Fact%20S heets/302-3801%20S ARS-COV-2%20PATIEN T%20FACT%20SHEET.p df Lab Interpretation Normal (test code = 19937-5) [facility]2022-11-30 06:15:02 Test Item Value Reference Interpretation Comments Range SARS-COV2/RT-PCR Negative Negative The SARS-Co V-2 (test code = target nucleic 41596-6) acids are not detected in thi s specimen. Negat rocio results do not preclude SARS-C oV-2 infection and should not be u sed as the sole bas is for patient management decisions. Nega tive results must be combined with clinical observations, patient history , and epidemiolog ical information. A false negative result may occu r if a specimen is improperly collected, transported or handled. This S ARS CoV-2 test is a rapid, real-miguel e RT-PCR test intended for th e qualitative detection of nucleic acid fr om SARS-CoV-2 in a nasopharyngeal swab specimen collec mendoza from individual s suspected of COVID-19 by the ir healthcare provider. OSBALDO (test code = This test has been OSBALDO) authorized by FDA under an EUA for use by authorized laboratories. This test is only authorized for the duration of the declaration that circumstances exist justifying the authorization of emergency use of in vitro diagnostic tests for detection and/or diagnosis of COVID-19 under Section 564(b)(1) of the Federal Food, Drug and Cosmetic Act, 21 U.S.C. 360bbb-3(b)(1), unless the authorization is terminated or revoked sooner. Fact Sheet for Healthcare Providers: https://www.WritePath/Documents/Xp ert%20Xpress%20SAR S%20CoV-2/Fact%20S heets/302-3802%20S ARS-COV-2%20HEALTH CARE%20PROVIDERS%2 0FACT%20SHEET.pdf Fact Sheet for Healthcare Patients: https://www.WritePath/Documents/Xp ert%20Xpress%20SAR S%20CoV-2/Fact%20S heets/302-3801%20S ARS-COV-2%20PATIEN T%20FACT%20SHEET.p df Lab Interpretation Normal (test code = 80060-2) [facility]2022-11-30 06:15:02 Test Item Value Reference Interpretation Comments Range SARS-COV2/RT-PCR Negative Negative The SARS-Co V-2 (test code = target nucleic 18390-5) acids are not detected in thi s specimen. Negat rocio results do not preclude SARS-C oV-2 infection and should not be u sed as the sole bas is for patient management decisions. Nega tive results must be combined with clinical observations, patient history , and epidemiolog ical information. A false negative result may occu r if a specimen is improperly collected, transported or handled. This S ARS CoV-2 test is a rapid, real-miguel e RT-PCR test intended for th e qualitative detection of nucleic acid fr om SARS-CoV-2 in a nasopharyngeal swab specimen collec mendoza from individual s suspected of COVID-19 by the ir healthcare provider. OSBALDO (test code = This test has been OSBALDO) authorized by FDA under an EUA for use by authorized laboratories. This test is only authorized for the duration of the declaration that circumstances exist justifying the authorization of emergency use of in vitro diagnostic tests for detection and/or diagnosis of COVID-19 under Section 564(b)(1) of the Federal Food, Drug and Cosmetic Act, 21 U.S.C. 360bbb-3(b)(1), unless the authorization is terminated or revoked sooner. Fact Sheet for Healthcare Providers: https://www.WritePath/Documents/Xp ert%20Xpress%20SAR S%20CoV-2/Fact%20S heets/302-3802%20S ARS-COV-2%20HEALTH CARE%20PROVIDERS%2 0FACT%20SHEET.pdf Fact Sheet for Healthcare Patients: https://www.WritePath/Documents/Xp ert%20Xpress%20SAR S%20CoV-2/Fact%20S heets/302-3801%20S ARS-COV-2%20PATIEN T%20FACT%20SHEET.p df Lab Interpretation Normal (test code = 03419-1) [facility]2022-11-30 06:15:02 Test Item Value Reference Interpretation Comments Range SARS-COV2/RT-PCR Negative Negative The SARS-Co V-2 (test code = target nucleic 30062-8) acids are not detected in thi s specimen. Negat rocio results do not preclude SARS-C oV-2 infection and should not be u sed as the sole bas is for patient management decisions. Nega tive results must be combined with clinical observations, patient history , and epidemiolog ical information. A false negative result may occu r if a specimen is improperly collected, transported or handled. This S ARS CoV-2 test is a rapid, real-miguel e RT-PCR test intended for th e qualitative detection of nucleic acid fr om SARS-CoV-2 in a nasopharyngeal swab specimen colle mendoza from individual s suspected of COVID-19 by the ir healthcare provider. OSBALDO (test code = This test has been OSBALDO) authorized by FDA under an EUA for use by authorized laboratories. This test is only authorized for the duration of the declaration that circumstances exist justifying the authorization of emergency use of in vitro diagnostic tests for detection and/or diagnosis of COVID-19 under Section 564(b)(1) of the Federal Food, Drug and Cosmetic Act, 21 U.S.C. 360bbb-3(b)(1), unless the authorization is terminated or revoked sooner. Fact Sheet for Healthcare Providers: https://www.WritePath/Documents/Xp ert%20Xpress%20SAR S%20CoV-2/Fact%20S heets/302-3802%20S ARS-COV-2%20HEALTH CARE%20PROVIDERS%2 0FACT%20SHEET.pdf Fact Sheet for Healthcare Patients: https://www.WritePath/Documents/Xp ert%20Xpress%20SAR S%20CoV-2/Fact%20S heets/302-3801%20S ARS-COV-2%20PATIEN T%20FACT%20SHEET.p df Lab Interpretation Normal (test code = 63116-1) [facility]2022-11-30 06:15:02 Test Item Value Reference Interpretation Comments Range SARS-COV2/RT-PCR Negative Negative The SARS-Co V-2 (test code = target nucleic 55153-8) acids are not detected in thi s specimen. Negat rocio results do not preclude SARS-C oV-2 infection and should not be u sed as the sole bas is for patient management decisions. Nega tive results must be combined with clinical observations, patient history , and epidemiolog ical information. A false negative result may occu r if a specimen is improperly collected, transported or handled. This S ARS CoV-2 test is a rapid, real-miguel e RT-PCR test intended for th e qualitative detection of nucleic acid fr om SARS-CoV-2 in a nasopharyngeal swab specimen collec mendoza from individual s suspected of COVID-19 by the ir healthcare provider. OSBALDO (test code = This test has been OSBALDO) authorized by FDA under an EUA for use by authorized laboratories. This test is only authorized for the duration of the declaration that circumstances exist justifying the authorization of emergency use of in vitro diagnostic tests for detection and/or diagnosis of COVID-19 under Section 564(b)(1) of the Federal Food, Drug and Cosmetic Act, 21 U.S.C. 360bbb-3(b)(1), unless the authorization is terminated or revoked sooner. Fact Sheet for Healthcare Providers: https://www.WritePath/Documents/Xp ert%20Xpress%20SAR S%20CoV-2/Fact%20S heets/302-3802%20S ARS-COV-2%20HEALTH CARE%20PROVIDERS%2 0FACT%20SHEET.pdf Fact Sheet for Healthcare Patients: https://www.WritePath/Documents/Xp ert%20Xpress%20SAR S%20CoV-2/Fact%20S heets/302-3801%20S ARS-COV-2%20PATIEN T%20FACT%20SHEET.p df Lab Interpretation Normal (test code = 80193-5) [facility]30 06:15:02 Test Item Value Reference Interpretation Comments Range SARS-COV2/RT-PCR Negative Negative The SARS-Co V-2 (test code = target nucleic 02588-8) acids are not detected in thi s specimen. Negat rocio results do not preclude SARS-C oV-2 infection and should not be u sed as the sole bas is for patient management decisions. Nega tive results must be combined with clinical observations, patient history , and epidemiolog ical information. A false negative result may occu r if a specimen is improperly collected, transported or handled. This S ARS CoV-2 test is a rapid, real-miguel e RT-PCR test intended for th e qualitative detection of nucleic acid fr om SARS-CoV-2 in a nasopharyngeal swab specimen collec mnedoza from individual s suspected of COVID-19 by the ir healthcare provider. OSBALDO (test code = This test has been OSBALDO) authorized by FDA under an EUA for use by authorized laboratories. This test is only authorized for the duration of the declaration that circumstances exist justifying the authorization of emergency use of in vitro diagnostic tests for detection and/or diagnosis of COVID-19 under Section 564(b)(1) of the Federal Food, Drug and Cosmetic Act, 21 U.S.C. 360bbb-3(b)(1), unless the authorization is terminated or revoked sooner. Fact Sheet for Healthcare Providers: https://www.WritePath/Documents/Xp ert%20Xpress%20SAR S%20CoV-2/Fact%20S heets/302-3802%20S ARS-COV-2%20HEALTH CARE%20PROVIDERS%2 0FACT%20SHEET.pdf Fact Sheet for Healthcare Patients: https://www.WritePath/Documents/Xp ert%20Xpress%20SAR S%20CoV-2/Fact%20S heets/302-3801%20S ARS-COV-2%20PATIEN T%20FACT%20SHEET.p df Lab Interpretation Normal (test code = 31012-9) [facility]2022-11-30 06:15:02 Test Item Value Reference Interpretation Comments Range SARS-COV2/RT-PCR Negative Negative The SARS-Co V-2 (test code = target nucleic 80777-0) acids are not detected in thi s specimen. Negat rocio results do not preclude SARS-C oV-2 infection and should not be u sed as the sole bas is for patient management decisions. Nega tive results must be combined with clinical observations, patient history , and epidemiolog ical information. A false negative result may occu r if a specimen is improperly collected, transported or handled. This S ARS CoV-2 test is a rapid, real-miguel e RT-PCR test intended for th e qualitative detection of nucleic acid fr om SARS-CoV-2 in a nasopharyngeal swab specimen collec mendoza from individual s suspected of COVID-19 by the ir healthcare provider. OSBALDO (test code = This test has been OSBALDO) authorized by FDA under an EUA for use by authorized laboratories. This test is only authorized for the duration of the declaration that circumstances exist justifying the authorization of emergency use of in vitro diagnostic tests for detection and/or diagnosis of COVID-19 under Section 564(b)(1) of the Federal Food, Drug and Cosmetic Act, 21 U.S.C. 360bbb-3(b)(1), unless the authorization is terminated or revoked sooner. Fact Sheet for Healthcare Providers: https://www.WritePath/Documents/Xp ert%20Xpress%20SAR S%20CoV-2/Fact%20S heets/302-3802%20S ARS-COV-2%20HEALTH CARE%20PROVIDERS%2 0FACT%20SHEET.pdf Fact Sheet for Healthcare Patients: https://www.[employer]Path/Documents/Xp ert%20Xpress%20SAR S%20CoV-2/Fact%20S heets/302-3801%20S ARS-COV-2%20PATIEN T%20FACT%20SHEET.p df Lab Interpretation Normal (test code = 68932-1) [facility]2022-11-30 06:15:02 Test Item Value Reference Interpretation Comments Range SARS-COV2/RT-PCR Negative Negative The SARS-Co V-2 (test code = target nucleic 53562-9) acids are not detected in thi s specimen. Negat rocio results do not preclude SARS-C oV-2 infection and should not be u sed as the sole bas is for patient management decisions. Nega tive results must be combined with clinical observations, patient history , and epidemiolog ical information. A false negative result may occu r if a specimen is improperly collected, transported or handled. This S ARS CoV-2 test is a rapid, real-miguel e RT-PCR test intended for th e qualitative detection of nucleic acid fr om SARS-CoV-2 in a nasopharyngeal swab specimen colle mendoza from individual s suspected of COVID-19 by the ir healthcare provider. OSBALDO (test code = This test has been OSBALDO) authorized by FDA under an EUA for use by authorized laboratories. This test is only authorized for the duration of the declaration that circumstances exist justifying the authorization of emergency use of in vitro diagnostic tests for detection and/or diagnosis of COVID-19 under Section 564(b)(1) of the Federal Food, Drug and Cosmetic Act, 21 U.S.C. 360bbb-3(b)(1), unless the authorization is terminated or revoked sooner. Fact Sheet for Healthcare Providers: https://www.WritePath/Documents/Xp ert%20Xpress%20SAR S%20CoV-2/Fact%20S heets/302-3802%20S ARS-COV-2%20HEALTH CARE%20PROVIDERS%2 0FACT%20SHEET.pdf Fact Sheet for Healthcare Patients: https://www.[employer]Path/Documents/Xp ert%20Xpress%20SAR S%20CoV-2/Fact%20S heets/302-3801%20S ARS-COV-2%20PATIEN T%20FACT%20SHEET.p df Lab Interpretation Normal (test code = 20813-3) [facility] 06:15:02 Test Item Value Reference Interpretation Comments Range SARS-COV2/RT-PCR Negative Negative The SARS-Co V-2 (test code = target nucleic 96597-1) acids are not detected in thi s specimen. Negat rocio results do not preclude SARS-C oV-2 infection and should not be u sed as the sole bas is for patient management decisions. Nega tive results must be combined with clinical observations, patient history , and epidemiolog ical information. A false negative result may occu r if a specimen is improperly collected, transported or handled. This S ARS CoV-2 test is a rapid, real-miguel e RT-PCR test intended for th e qualitative detection of nucleic acid fr om SARS-CoV-2 in a nasopharyngeal swab specimen collec mendoza from individual s suspected of COVID-19 by the ir healthcare provider. OSBALDO (test code = This test has been OSBALDO) authorized by FDA under an EUA for use by authorized laboratories. This test is only authorized for the duration of the declaration that circumstances exist justifying the authorization of emergency use of in vitro diagnostic tests for detection and/or diagnosis of COVID-19 under Section 564(b)(1) of the Federal Food, Drug and Cosmetic Act, 21 U.S.C. 360bbb-3(b)(1), unless the authorization is terminated or revoked sooner. Fact Sheet for Healthcare Providers: https://www.[employer]/Documents/Xp ert%20Xpress%20SAR S%20CoV-2/Fact%20S heets/302-3802%20S ARS-COV-2%20HEALTH CARE%20PROVIDERS%2 0FACT%20SHEET.pdf Fact Sheet for Healthcare Patients: https://www.[employer]/Documents/Xp ert%20Xpress%20SAR S%20CoV-2/Fact%20S heets/302-3801%20S ARS-COV-2%20PATIEN T%20FACT%20SHEET.p df Lab Interpretation Normal (test code = 95801-0) [facility] 06:15:02 Test Item Value Reference Interpretation Comments Range SARS-COV2/RT-PCR Negative Negative The SARS-Co V-2 (test code = target nucleic 61628-5) acids are not detected in thi s specimen. Negat rocio results do not preclude SARS-C oV-2 infection and should not be u sed as the sole bas is for patient management decisions. Nega tive results must be combined with clinical observations, patient history , and epidemiolog ical information. A false negative result may occu r if a specimen is improperly collected, transported or handled. This S ARS CoV-2 test is a rapid, real-miguel e RT-PCR test intended for th e qualitative detection of nucleic acid fr om SARS-CoV-2 in a nasopharyngeal swab specimen collec mendoza from individual s suspected of COVID-19 by the ir healthcare provider. OSBALDO (test code = This test has been OSBALDO) authorized by FDA under an EUA for use by authorized laboratories. This test is only authorized for the duration of the declaration that circumstances exist justifying the authorization of emergency use of in vitro diagnostic tests for detection and/or diagnosis of COVID-19 under Section 564(b)(1) of the Federal Food, Drug and Cosmetic Act, 21 U.S.C. 360bbb-3(b)(1), unless the authorization is terminated or revoked sooner. Fact Sheet for Healthcare Providers: https://www.[employer]/Documents/Xp ert%20Xpress%20SAR S%20CoV-2/Fact%20S heets/3023802%20S ARS-COV-2%20HEALTH CARE%20PROVIDERS%2 0FACT%20SHEET.pdf Fact Sheet for Healthcare Patients: https://www.[employer]/Documents/Xp ert%20Xpress%20SAR S%20CoV-2/Fact%20S heets/302-3801%20S ARS-COV-2%20PATIEN T%20FACT%20SHEET.p df Lab Interpretation Normal (test code = 08703-5) [facility]-30 06:15:02 Test Item Value Reference Interpretation Comments Range SARS-COV2/RT-PCR Negative Negative The SARS-Co V-2 (test code = target nucleic 52319-5) acids are not detected in thi s specimen. Negat rocio results do not preclude SARS-C oV-2 infection and should not be u sed as the sole bas is for patient management decisions. Nega tive results must be combined with clinical observations, patient history , and epidemiolog ical information. A false negative result may occu r if a specimen is improperly collected, transported or handled. This S ARS CoV-2 test is a rapid, real-miguel e RT-PCR test intended for th e qualitative detection of nucleic acid fr om SARS-CoV-2 in a nasopharyngeal swab specimen colle mendoza from individual s suspected of COVID-19 by the ir healthcare provider. OSBALDO (test code = This test has been OSBALDO) authorized by FDA under an EUA for use by authorized laboratories. This test is only authorized for the duration of the declaration that circumstances exist justifying the authorization of emergency use of in vitro diagnostic tests for detection and/or diagnosis of COVID-19 under Section 564(b)(1) of the Federal Food, Drug and Cosmetic Act, 21 U.S.C. 360bbb-3(b)(1), unless the authorization is terminated or revoked sooner. Fact Sheet for Healthcare Providers: https://www.[employer]/Documents/Xp ert%20Xpress%20SAR S%20CoV-2/Fact%20S heets/302-3802%20S ARS-COV-2%20HEALTH CARE%20PROVIDERS%2 0FACT%20SHEET.pdf Fact Sheet for Healthcare Patients: https://www.[employer]/Documents/Xp ert%20Xpress%20SAR S%20CoV-2/Fact%20S heets/302-3801%20S ARS-COV-2%20PATIEN T%20FACT%20SHEET.p df Lab Interpretation Normal (test code = 87408-1) [facility]30 06:15:02 Test Item Value Reference Interpretation Comments Range SARS-COV2/RT-PCR Negative Negative The SARS-Co V-2 (test code = target nucleic 77576-6) acids are not detected in thi s specimen. Negat rocio results do not preclude SARS-C oV-2 infection and should not be u sed as the sole bas is for patient management decisions. Nega tive results must be combined with clinical observations, patient history , and epidemiolog ical information. A false negative result may occu r if a specimen is improperly collected, transported or handled. This S ARS CoV-2 test is a rapid, real-miguel e RT-PCR test intended for th e qualitative detection of nucleic acid fr om SARS-CoV-2 in a nasopharyngeal swab specimen collec mendoza from individual s suspected of COVID-19 by the ir healthcare provider. OSBALDO (test code = This test has been OSBALDO) authorized by FDA under an EUA for use by authorized laboratories. This test is only authorized for the duration of the declaration that circumstances exist justifying the authorization of emergency use of in vitro diagnostic tests for detection and/or diagnosis of COVID-19 under Section 564(b)(1) of the Federal Food, Drug and Cosmetic Act, 21 U.S.C. 360bbb-3(b)(1), unless the authorization is terminated or revoked sooner. Fact Sheet for Healthcare Providers: https://www.[employer]/Documents/Xp ert%20Xpress%20SAR S%20CoV-2/Fact%20S heets/302-3802%20S ARS-COV-2%20HEALTH CARE%20PROVIDERS%2 0FACT%20SHEET.pdf Fact Sheet for Healthcare Patients: https://www.[employer]/Documents/Xp ert%20Xpress%20SAR S%20CoV-2/Fact%20S heets/302-3801%20S ARS-COV-2%20PATIEN T%20FACT%20SHEET.p df Lab Interpretation Normal (test code = 58784-1) [facility]2022-11-30 06:15:02 Test Item Value Reference Interpretation Comments Range SARS-COV2/RT-PCR Negative Negative The SARS-Co V-2 (test code = target nucleic 07105-6) acids are not detected in thi s specimen. Negat rocio results do not preclude SARS-C oV-2 infection and should not be u sed as the sole bas is for patient management decisions. Nega tive results must be combined with clinical observations, patient history , and epidemiolog ical information. A false negative result may occu r if a specimen is improperly collected, transported or handled. This S ARS CoV-2 test is a rapid, real-miguel e RT-PCR test intended for th e qualitative detection of nucleic acid fr om SARS-CoV-2 in a nasopharyngeal swab specimen collec mendoza from individual s suspected of COVID-19 by the ir healthcare provider. OSBALDO (test code = This test has been OSBALDO) authorized by FDA under an EUA for use by authorized laboratories. This test is only authorized for the duration of the declaration that circumstances exist justifying the authorization of emergency use of in vitro diagnostic tests for detection and/or diagnosis of COVID-19 under Section 564(b)(1) of the Federal Food, Drug and Cosmetic Act, 21 U.S.C. 360bbb-3(b)(1), unless the authorization is terminated or revoked sooner. Fact Sheet for Healthcare Providers: https://www.[employer]/Documents/Xp ert%20Xpress%20SAR S%20CoV-2/Fact%20S heets/3023802%20S ARS-COV-2%20HEALTH CARE%20PROVIDERS%2 0FACT%20SHEET.pdf Fact Sheet for Healthcare Patients: https://www.[employer]/Documents/Xp ert%20Xpress%20SAR S%20CoV-2/Fact%20S heets/3023801%20S ARS-COV-2%20PATIEN T%20FACT%20SHEET.p df Lab Interpretation Normal (test code = 65169-7) [facility]22[facility]-30 06:15:02 Test Item Value Reference Interpretation Comments Range SARS-COV2/RT-PCR Negative Negative The SARS-Co V-2 (test code = target nucleic 02805-0) acids are not detected in thi s specimen. Negat rocio results do not preclude SARS-C oV-2 infection and should not be u sed as the sole bas is for patient management decisions. Nega tive results must be combined with clinical observations, patient history , and epidemiolog ical information. A false negative result may occu r if a specimen is improperly collected, transported or handled. This S ARS CoV-2 test is a rapid, real-miguel e RT-PCR test intended for e qualitative detection of nucleic acid fr om SARS-CoV-2 in a nasopharyngeal swab specimen collec mendoza from individual s suspected of COVID-19 by the ir healthcare provider. OSBALDO (test code = This test has been OSBALDO) authorized by FDA under an EUA for use by authorized laboratories. This test is only authorized for the duration of the declaration that circumstances exist justifying the authorization of emergency use of in vitro diagnostic tests for detection and/or diagnosis of COVID-19 under Section 564(b)(1) of the Federal Food, Drug and Cosmetic Act, 21 U.S.C. 360bbb-3(b)(1), unless the authorization is terminated or revoked sooner. Fact Sheet for Healthcare Providers: https://www.[employer]/Documents/Xp ert%20Xpress%20SAR S%20CoV-2/Fact%20S heets/302-3802%20S ARS-COV-2%20HEALTH CARE%20PROVIDERS%2 0FACT%20SHEET.pdf Fact Sheet for Healthcare Patients: https://www.[employer]/Documents/Xp ert%20Xpress%20SAR S%20CoV-2/Fact%20S heets/302-3801%20S ARS-COV-2%20PATIEN T%20FACT%20SHEET.p df Lab Interpretation Normal (test code = 93489-1) [facility]2022-11-30 06:15:02 Test Item Value Reference Interpretation Comments Range SARS-COV2/RT-PCR Negative Negative The SARS-Co V-2 (test code = target nucleic 17901-3) acids are not detected in thi s specimen. Negat rocio results do not preclude SARS-C oV-2 infection and should not be u sed as the sole bas is for patient management decisions. Nega tive results must be combined with clinical observations, patient history , and epidemiolog ical information. A false negative result may occu r if a specimen is improperly collected, transported or handled. This S ARS CoV-2 test is a rapid, real-miguel e RT-PCR test intended for th e qualitative detection of nucleic acid fr om SARS-CoV-2 in a nasopharyngeal swab specimen collec mendoza from individual s suspected of COVID-19 by the ir healthcare provider. OSBALDO (test code = This test has been OSBALDO) authorized by FDA under an EUA for use by authorized laboratories. This test is only authorized for the duration of the declaration that circumstances exist justifying the authorization of emergency use of in vitro diagnostic tests for detection and/or diagnosis of COVID-19 under Section 564(b)(1) of the Federal Food, Drug and Cosmetic Act, 21 U.S.C. 360bbb-3(b)(1), unless the authorization is terminated or revoked sooner. Fact Sheet for Healthcare Providers: https://www.[employer]/Documents/Xp ert%20Xpress%20SAR S%20CoV-2/Fact%20S heets/302-3802%20S ARS-COV-2%20HEALTH CARE%20PROVIDERS%2 0FACT%20SHEET.pdf Fact Sheet for Healthcare Patients: https://www.[employer]/Documents/Xp ert%20Xpress%20SAR S%20CoV-2/Fact%20S heets/302-3801%20S ARS-COV-2%20PATIEN T%20FACT%20SHEET.p df Lab Interpretation Normal (test code = 24381-3) [facility]2022-11-30 06:15:02 Test Item Value Reference Interpretation Comments Range SARS-COV2/RT-PCR Negative Negative The SARS-Co V-2 (test code = target nucleic 75701-3) acids are not detected in thi s specimen. Negat rocio results do not preclude SARS-C oV-2 infection and should not be u sed as the sole bas is for patient management decisions. Nega tive results must be combined with clinical observations, patient history , and epidemiolog ical information. A false negative result may occu r if a specimen is improperly collected, transported or handled. This S ARS CoV-2 test is a rapid, real-miguel e RT-PCR test intended for th e qualitative detection of nucleic acid fr om SARS-CoV-2 in a nasopharyngeal swab specimen colle mendoza from individual s suspected of COVID-19 by the ir healthcare provider. OSBALDO (test code = This test has been OSBALDO) authorized by FDA under an EUA for use by authorized laboratories. This test is only authorized for the duration of the declaration that circumstances exist justifying the authorization of emergency use of in vitro diagnostic tests for detection and/or diagnosis of COVID-19 under Section 564(b)(1) of the Federal Food, Drug and Cosmetic Act, 21 U.S.C. 360bbb-3(b)(1), unless the authorization is terminated or revoked sooner. Fact Sheet for Healthcare Providers: https://www.[employer]/Documents/Xp ert%20Xpress%20SAR S%20CoV-2/Fact%20S heets/302-3802%20S ARS-COV-2%20HEALTH CARE%20PROVIDERS%2 0FACT%20SHEET.pdf Fact Sheet for Healthcare Patients: https://www.[employer]/Documents/Xp ert%20Xpress%20SAR S%20CoV-2/Fact%20S heets/302-3801%20S ARS-COV-2%20PATIEN T%20FACT%20SHEET.p df Lab Interpretation Normal (test code = 41007-3) [facility]30 06:15:02 Test Item Value Reference Interpretation Comments Range SARS-COV2/RT-PCR Negative Negative The SARS-Co V-2 (test code = target nucleic 42358-8) acids are not detected in thi s specimen. Negat rocio results do not preclude SARS-C oV-2 infection and should not be u sed as the sole bas is for patient management decisions. Nega tive results must be combined with clinical observations, patient history , and epidemiolog ical information. A false negative result may occu r if a specimen is improperly collected, transported or handled. This S ARS CoV-2 test is a rapid, real-miguel e RT-PCR test intended for th e qualitative detection of nucleic acid fr om SARS-CoV-2 in a nasopharyngeal swab specimen colle mendoza from individual s suspected of COVID-19 by the ir healthcare provider. OSBALDO (test code = This test has been OSBALDO) authorized by FDA under an EUA for use by authorized laboratories. This test is only authorized for the duration of the declaration that circumstances exist justifying the authorization of emergency use of in vitro diagnostic tests for detection and/or diagnosis of COVID-19 under Section 564(b)(1) of the Federal Food, Drug and Cosmetic Act, 21 U.S.C. 360bbb-3(b)(1), unless the authorization is terminated or revoked sooner. Fact Sheet for Healthcare Providers: https://www.[employer]/Documents/Xp ert%20Xpress%20SAR S%20CoV-2/Fact%20S heets/302-3802%20S ARS-COV-2%20HEALTH CARE%20PROVIDERS%2 0FACT%20SHEET.pdf Fact Sheet for Healthcare Patients: https://www.[employer]/Documents/Xp ert%20Xpress%20SAR S%20CoV-2/Fact%20S heets/302-3801%20S ARS-COV-2%20PATIEN T%20FACT%20SHEET.p df Lab Interpretation Normal (test code = 43118-9) [facility]2022-[facility]-30 06:15:02 Test Item Value Reference Interpretation Comments Range SARS-COV2/RT-PCR Negative Negative The SARS-Co V-2 (test code = target nucleic 60634-4) acids are not detected in thi s specimen. Negat rocio results do not preclude SARS-C oV-2 infection and should not be u sed as the sole bas is for patient management decisions. Nega tive results must be combined with clinical observations, patient history , and epidemiolog ical information. A false negative result may occu r if a specimen is improperly collected, transported or handled. This S ARS CoV-2 test is a rapid, real-miguel e RT-PCR test intended for th e qualitative detection of nucleic acid fr om SARS-CoV-2 in a nasopharyngeal swab specimen colle mendoza from individual s suspected of COVID-19 by the ir healthcare provider. OSBALDO (test code = This test has been OSBALDO) authorized by FDA under an EUA for use by authorized laboratories. This test is only authorized for the duration of the declaration that circumstances exist justifying the authorization of emergency use of in vitro diagnostic tests for detection and/or diagnosis of COVID-19 under Section 564(b)(1) of the Federal Food, Drug and Cosmetic Act, 21 U.S.C. 360bbb-3(b)(1), unless the authorization is terminated or revoked sooner. Fact Sheet for Healthcare Providers: https://www.[employer]/Documents/Xp ert%20Xpress%20SAR S%20CoV-2/Fact%20S heets/302-3802%20S ARS-COV-2%20HEALTH CARE%20PROVIDERS%2 0FACT%20SHEET.pdf Fact Sheet for Healthcare Patients: https://www.[employer]/Documents/Xp ert%20Xpress%20SAR S%20CoV-2/Fact%20S heets/302-3801%20S ARS-COV-2%20PATIEN T%20FACT%20SHEET.p df Lab Interpretation Normal (test code = 58131-2) [facility]30 06:15:02 Test Item Value Reference Interpretation Comments Range SARS-COV2/RT-PCR Negative Negative The SARS-Co V-2 (test code = target nucleic 46820-8) acids are not detected in thi s specimen. Negat rocio results do not preclude SARS-C oV-2 infection and should not be u sed as the sole bas is for patient management decisions. Nega tive results must be combined with clinical observations, patient history , and epidemiolog ical information. A false negative result may occu r if a specimen is improperly collected, transported or handled. This S ARS CoV-2 test is a rapid, real-miguel e RT-PCR test intended for th e qualitative detection of nucleic acid fr om SARS-CoV-2 in a nasopharyngeal swab specimen collec mendoza from individual s suspected of COVID-19 by the ir healthcare provider. OSBALDO (test code = This test has been OSBALDO) authorized by FDA under an EUA for use by authorized laboratories. This test is only authorized for the duration of the declaration that circumstances exist justifying the authorization of emergency use of in vitro diagnostic tests for detection and/or diagnosis of COVID-19 under Section 564(b)(1) of the Federal Food, Drug and Cosmetic Act, 21 U.S.C. 360bbb-3(b)(1), unless the authorization is terminated or revoked sooner. Fact Sheet for Healthcare Providers: https://www.[employer]/Documents/Xp ert%20Xpress%20SAR S%20CoV-2/Fact%20S heets/302-3802%20S ARS-COV-2%20HEALTH CARE%20PROVIDERS%2 0FACT%20SHEET.pdf Fact Sheet for Healthcare Patients: https://wwwTripwolf/Documents/Xp ert%20Xpress%20SAR S%20CoV-2/Fact%20S heets/302-3801%20S ARS-COV-2%20PATIEN T%20FACT%20SHEET.p df Lab Interpretation Normal (test code = 33799-9) [facility]20[facility]-30 06:15:02 Test Item Value Reference Interpretation Comments Range SARS-COV2/RT-PCR Negative Negative The SARS-Co V-2 (test code = target nucleic 82150-8) acids are not detected in thi s specimen. Negat rocio results do not preclude SARS-C oV-2 infection and should not be u sed as the sole bas is for patient management decisions. Nega tive results must be combined with clinical observations, patient history , and epidemiolog ical information. A false negative result may occu r if a specimen is improperly collected, transported or handled. This S ARS CoV-2 test is a rapid, real-miguel e RT-PCR test intended for th e qualitative detection of nucleic acid fr om SARS-CoV-2 in a nasopharyngeal swab specimen collec mendoza from individual s suspected of COVID-19 by the ir healthcare provider. OSBALDO (test code = This test has been OSBALDO) authorized by FDA under an EUA for use by authorized laboratories. This test is only authorized for the duration of the declaration that circumstances exist justifying the authorization of emergency use of in vitro diagnostic tests for detection and/or diagnosis of COVID-19 under Section 564(b)(1) of the Federal Food, Drug and Cosmetic Act, 21 U.S.C. 360bbb-3(b)(1), unless the authorization is terminated or revoked sooner. Fact Sheet for Healthcare Providers: https://www.[employer]/Documents/Xp ert%20Xpress%20SAR S%20CoV-2/Fact%20S heets/302-3802%20S ARS-COV-2%20HEALTH CARE%20PROVIDERS%2 0FACT%20SHEET.pdf Fact Sheet for Healthcare Patients: https://www.[employer]/Documents/Xp ert%20Xpress%20SAR S%20CoV-2/Fact%20S heets/302-3801%20S ARS-COV-2%20PATIEN T%20FACT%20SHEET.p df Lab Interpretation Normal (test code = 05311-6) [facility]22[facility]11-30 06:15:02 Test Item Value Reference Interpretation Comments Range SARS-COV2/RT-PCR Negative Negative The SARS-Co V-2 (test code = target nucleic 16050-8) acids are not detected in thi s specimen. Negat rocio results do not preclude SARS-C oV-2 infection and should not be u sed as the sole bas is for patient management decisions. Nega tive results must be combined with clinical observations, patient history , and epidemiolog ical information. A false negative result may occu r if a specimen is improperly collected, transported or handled. This S ARS CoV-2 test is a rapid, real-miguel e RT-PCR test intended for th e qualitative detection of nucleic acid fr om SARS-CoV-2 in a nasopharyngeal swab specimen collec mendoza from individual s suspected of COVID-19 by the ir healthcare provider. OSBALDO (test code = This test has been OSBALDO) authorized by FDA under an EUA for use by authorized laboratories. This test is only authorized for the duration of the declaration that circumstances exist justifying the authorization of emergency use of in vitro diagnostic tests for detection and/or diagnosis of COVID-19 under Section 564(b)(1) of the Federal Food, Drug and Cosmetic Act, 21 U.S.C. 360bbb-3(b)(1), unless the authorization is terminated or revoked sooner. Fact Sheet for Healthcare Providers: https://www.[employer]/Documents/Xp ert%20Xpress%20SAR S%20CoV-2/Fact%20S heets/302-3802%20S ARS-COV-2%20HEALTH CARE%20PROVIDERS%2 0FACT%20SHEET.pdf Fact Sheet for Healthcare Patients: https://wwwTripwolf/Documents/Xp ert%20Xpress%20SAR S%20CoV-2/Fact%20S heets/302-3801%20S ARS-COV-2%20PATIEN T%20FACT%20SHEET.p df Lab Interpretation Normal (test code = 91527-6) [facility]2022-11-30 06:15:02 Test Item Value Reference Interpretation Comments Range SARS-COV2/RT-PCR Negative Negative The SARS-Co V-2 (test code = target nucleic 49999-8) acids are not detected in thi s specimen. Negat rocio results do not preclude SARS-C oV-2 infection and should not be u sed as the sole bas is for patient management decisions. Nega tive results must be combined with clinical observations, patient history , and epidemiolog ical information. A false negative result may occu r if a specimen is improperly collected, transported or handled. This S ARS CoV-2 test is a rapid, real-miguel e RT-PCR test intended for th e qualitative detection of nucleic acid fr om SARS-CoV-2 in a nasopharyngeal swab specimen collec mendoza from individual s suspected of COVID-19 by the ir healthcare provider. OSBALDO (test code = This test has been OSBALDO) authorized by FDA under an EUA for use by authorized laboratories. This test is only authorized for the duration of the declaration that circumstances exist justifying the authorization of emergency use of in vitro diagnostic tests for detection and/or diagnosis of COVID-19 under Section 564(b)(1) of the Federal Food, Drug and Cosmetic Act, 21 U.S.C. 360bbb-3(b)(1), unless the authorization is terminated or revoked sooner. Fact Sheet for Healthcare Providers: https://www.[employer]/Documents/Xp ert%20Xpress%20SAR S%20CoV-2/Fact%20S heets/302-3802%20S ARS-COV-2%20HEALTH CARE%20PROVIDERS%2 0FACT%20SHEET.pdf Fact Sheet for Healthcare Patients: https://www.[employer]/Documents/Xp ert%20Xpress%20SAR S%20CoV-2/Fact%20S heets/302-3801%20S ARS-COV-2%20PATIEN T%20FACT%20SHEET.p df Lab Interpretation Normal (test code = 48842-9) [facility]2022-11-30 06:15:02 Test Item Value Reference Range Interpretation Comments SARS-COV2/RT-PCR Negative Negative The SARS-Co V-2 target (test code = nucleic acids a re not 3868084) detected in thi s specimen. Negative result s do not preclude SARS-C oV-2 infection and s hould not be used as the kain e basis for patient managem ent decisions. Nega tive results must be combine d with clinical observ ations, patient history , and epidemiological information. A false negativ e result may occur if a spec imen is improperly osmar ected, transported or handled. This SARS CoV-2 test is a rapid, real-time RT-PC R test intended for th e qualitative detection of nu cleic acid from SARS-CoV-2 in a nasopharyngeal swab specimen collected from individuals suspected of CO VID-19 by their healthcar e provider. This test has been authorized by FDA under an EUA for use by authorized laboratories. This test is only authorized for the duration of the declaration that circumstances exist justifying the authorization of emergency use of in vitro diagnostic tests for detection and/or diagnosis of COVID-19 under Section 564(b)(1) of the Federal Food, Drug and Cosmetic Act, 21 U.S.C. 360bbb-3(b)(1), unless the authorization is terminated or revoked sooner. Fact Sheet for Healthcare Providers: https://makexyz.[employer]/Documents/Xpert%20Xpress%20SARS%20CoV-2/Fact%20Sheets/302-3802%69FBBS-UGZ-5%20 HEALTHCARE%20PROVIDERS%20FACT%20SHEET.pdf Fact Sheet for Healthcare Patients: https://www.[employer]/Documents/Xpert%20Xp ress%20SARS%20CoV-2/Fact%20Sheets/302-3801%78YILI-ZTK-6%20PATIENT%20FACT%20SHEET .[id number] 05:54:57 Test Item Value Reference Range Interpretation Comments PROCALCITONIN (BEAKER) (test code 58.95 ng/mL <0.05 = 3036) SEPSIS RISK (ng/mL)Low: 0.05-0.50Intermediate: 0.51-2.00High: >=2.01Blood gas, [id number] 05:16:22 Test Item Value Reference Range Interpretation Comments pH, Arterial (test code 7.40 7.35-7.45 = 2744-1) pCO2, Arterial (test 38 See_Comment [Autom ated code = 2019-) message] The system which generated this result transmitted reference range : 35 - 45 mm Hg. The reference range was not used to interpret this result as normal/abnormal . pO2, Arterial (test 93 See_Comment H [Automa mendoza code = 2703-7) message] The system which generated this result transmitted reference range : 80 - 90 mm Hg. The reference range was not used to interpret this result as normal/abnormal . O2 Sat, Arterial (test 96.6 % 96.0-97.0 code = 2708-6) HCO3, Arterial (test 23 mmol/L 21-29 code = 1960-4) Base Excess, Arterial -1.3 mmol/L -2.0-3.0 (test code = 1925-7) Patient Temperature 38.5 (test code = 8310-5) FIO2 (test code = 1819) 100 Lab Interpretation Abnormal (test code = 74573-5) [facility] [id number] 05:16:22 Test Item Value Reference Range Interpretation Comments pH, Arterial (test code 7.40 7.35-7.45 = 2744-1) pCO2, Arterial (test 38 See_Comment [Autom ated code = 2019-02) message] The system which generated this result transmitted reference range : 35 - 45 mm Hg. The reference range was not used to interpret this result as normal/abnormal . pO2, Arterial (test 93 See_Comment H [Automa mendoza code = 2703-7) message] The system which generated this result transmitted reference range : 80 - 90 mm Hg. The reference range was not used to interpret this result as normal/abnormal . O2 Sat, Arterial (test 96.6 % 96.0-97.0 code = 2708-6) HCO3, Arterial (test 23 mmol/L 21-29 code = 1960-4) Base Excess, Arterial -1.3 mmol/L -2.0-3.0 (test code = 1925-7) Patient Temperature 38.5 (test code = 8310-5) FIO2 (test code = 1819) 100 Lab Interpretation Abnormal (test code = 37509-7) [facility] gas, [id number] 05:16:22 Test Item Value Reference Range Interpretation Comments pH, Arterial (test code 7.40 7.35-7.45 = 2744-1) pCO2, Arterial (test 38 See_Comment [Autom ated code = 2019-02) message] The system which generated this result transmitted reference range : 35 - 45 mm Hg. The reference range was not used to interpret this result as normal/abnormal . pO2, Arterial (test 93 See_Comment H [Automa mendoza code = 2703-7) message] The system which generated this result transmitted reference range : 80 - 90 mm Hg. The reference range was not used to interpret this result as normal/abnormal . O2 Sat, Arterial (test 96.6 % 96.0-97.0 code = 2708-6) HCO3, Arterial (test 23 mmol/L 21-29 code = 1960-4) Base Excess, Arterial -1.3 mmol/L -2.0-3.0 (test code = 1925-7) Patient Temperature 38.5 (test code = 8310-5) FIO2 (test code = 1819) 100 Lab Interpretation Abnormal (test code = 18149-9) [facility] [id number] 05:16:22 Test Item Value Reference Range Interpretation Comments pH, Arterial (test code 7.40 7.35-7.45 = 2744-1) pCO2, Arterial (test 38 See_Comment [Autom ated code = 2019-02) message] The system which generated this result transmitted reference range : 35 - 45 mm Hg. The reference range was not used to interpret this result as normal/abnormal . pO2, Arterial (test 93 See_Comment H [Automa mendoza code = 2703-7) message] The system which generated this result transmitted reference range : 80 - 90 mm Hg. The reference range was not used to interpret this result as normal/abnormal . O2 Sat, Arterial (test 96.6 % 96.0-97.0 code = 2708-6) HCO3, Arterial (test 23 mmol/L 21-29 code = 1960-4) Base Excess, Arterial -1.3 mmol/L -2.0-3.0 (test code = 1925-7) Patient Temperature 38.5 (test code = 8310-5) FIO2 (test code = 1819) 100 Lab Interpretation Abnormal (test code = 88026-1) [facility], [id number] 05:16:22 Test Item Value Reference Range Interpretation Comments pH, Arterial (test code 7.40 7.35-7.45 = 2744-1) pCO2, Arterial (test 38 See_Comment [Autom ated code = 2019-02) message] The system which generated this result transmitted reference range : 35 - 45 mm Hg. The reference range was not used to interpret this result as normal/abnormal . pO2, Arterial (test 93 See_Comment H [Automa mendoza code = 2703-7) message] The system which generated this result transmitted reference range : 80 - 90 mm Hg. The reference range was not used to interpret this result as normal/abnormal . O2 Sat, Arterial (test 96.6 % 96.0-97.0 code = 2708-6) HCO3, Arterial (test 23 mmol/L 21-29 code = 1960-4) Base Excess, Arterial -1.3 mmol/L -2.0-3.0 (test code = 1925-7) Patient Temperature 38.5 (test code = 8310-5) FIO2 (test code = 1819) 100 Lab Interpretation Abnormal (test code = 29850-9) [facility] [id number] 05:16:22 Test Item Value Reference Range Interpretation Comments pH, Arterial (test code 7.40 7.35-7.45 = 2744-1) pCO2, Arterial (test 38 See_Comment [Autom ated code = 2019-02) message] The system which generated this result transmitted reference range : 35 - 45 mm Hg. The reference range was not used to interpret this result as normal/abnormal . pO2, Arterial (test 93 See_Comment H [Automa mendoza code = 2703-7) message] The system which generated this result transmitted reference range : 80 - 90 mm Hg. The reference range was not used to interpret this result as normal/abnormal . O2 Sat, Arterial (test 96.6 % 96.0-97.0 code = 2708-6) HCO3, Arterial (test 23 mmol/L -29 code = 1960-4) Base Excess, Arterial -1.3 mmol/L -2.0-3.0 (test code = 1925-7) Patient Temperature 38.5 (test code = 8310-5) FIO2 (test code = 1819) 100.0 Lab Interpretation Abnormal (test code = 72214-9) [facility] gas, [id number] 05:16:22 Test Item Value Reference Range Interpretation Comments pH, Arterial (test code 7.40 7.35-7.45 = 2744-1) pCO2, Arterial (test 38 See_Comment [Autom ated code = 2019-02) message] The system which generated this result transmitted reference range : 35 - 45 mm Hg. The reference range was not used to interpret this result as normal/abnormal . pO2, Arterial (test 93 See_Comment H [Automa mendoza code = 2703-7) message] The system which generated this result transmitted reference range : 80 - 90 mm Hg. The reference range was not used to interpret this result as normal/abnormal . O2 Sat, Arterial (test 96.6 % 96.0-97.0 code = 2708-6) HCO3, Arterial (test 23 mmol/L 21-29 code = 1960-4) Base Excess, Arterial -1.3 mmol/L -2.0-3.0 (test code = 1925-7) Patient Temperature 38.5 (test code = 8310-5) FIO2 (test code = 1819) 100.0 Lab Interpretation Abnormal (test code = 48769-6) [facility] gas, [id number] 05:16:22 Test Item Value Reference Range Interpretation Comments pH, Arterial (test code 7.40 7.35-7.45 = 2744-1) pCO2, Arterial (test 38 See_Comment [Autom ated code = 2019-02) message] The system which generated this result transmitted reference range : 35 - 45 mm Hg. The reference range was not used to interpret this result as normal/abnormal . pO2, Arterial (test 93 See_Comment H [Automa mendoza code = 2703-7) message] The system which generated this result transmitted reference range : 80 - 90 mm Hg. The reference range was not used to interpret this result as normal/abnormal . O2 Sat, Arterial (test 96.6 % 96.0-97.0 code = 2708-6) HCO3, Arterial (test 23 mmol/L 21-29 code = 1960-4) Base Excess, Arterial -1.3 mmol/L -2.0-3.0 (test code = 1925-7) Patient Temperature 38.5 (test code = 8310-5) FIO2 (test code = 1819) 100.0 Lab Interpretation Abnormal (test code = 46165-5) [facility] gas, [id number] 05:16:22 Test Item Value Reference Range Interpretation Comments pH, Arterial (test code 7.40 7.35-7.45 = 2744-1) pCO2, Arterial (test 38 See_Comment [Autom ated code = 2019-02) message] The system which generated this result transmitted reference range : 35 - 45 mm Hg. The reference range was not used to interpret this result as normal/abnormal . pO2, Arterial (test 93 See_Comment H [Automa mendoza code = 2703-7) message] The system which generated this result transmitted reference range : 80 - 90 mm Hg. The reference range was not used to interpret this result as normal/abnormal . O2 Sat, Arterial (test 96.6 % 96.0-97.0 code = 2708-6) HCO3, Arterial (test 23 mmol/L 21-29 code = 1960-4) Base Excess, Arterial -1.3 mmol/L -2.0-3.0 (test code = 1925-7) Patient Temperature 38.5 (test code = 8310-5) FIO2 (test code = 1819) 100.0 Lab Interpretation Abnormal (test code = 68240-1) [facility] gas, [id number] 05:16:22 Test Item Value Reference Range Interpretation Comments pH, Arterial (test code 7.40 7.35-7.45 = 2744-1) pCO2, Arterial (test 38 See_Comment [Autom ated code = 2019-02) message] The system which generated this result transmitted reference range : 35 - 45 mm Hg. The reference range was not used to interpret this result as normal/abnormal . pO2, Arterial (test 93 See_Comment H [Automa mendoza code = 2703-7) message] The system which generated this result transmitted reference range : 80 - 90 mm Hg. The reference range was not used to interpret this result as normal/abnormal . O2 Sat, Arterial (test 96.6 % 96.0-97.0 code = 2708-6) HCO3, Arterial (test 23 mmol/L 21-29 code = 1960-4) Base Excess, Arterial -1.3 mmol/L -2.0-3.0 (test code = 1925-7) Patient Temperature 38.5 (test code = 8310-5) FIO2 (test code = 1819) 100.0 Lab Interpretation Abnormal (test code = 71386-9) [facility] gas, [id number] 05:16:22 Test Item Value Reference Range Interpretation Comments pH, Arterial (test code 7.40 7.35-7.45 = 2744-1) pCO2, Arterial (test 38 See_Comment [Autom ated code = 2019-02) message] The system which generated this result transmitted reference range : 35 - 45 mm Hg. The reference range was not used to interpret this result as normal/abnormal . pO2, Arterial (test 93 See_Comment H [Automa mendoza code = 2703-7) message] The system which generated this result transmitted reference range : 80 - 90 mm Hg. The reference range was not used to interpret this result as normal/abnormal . O2 Sat, Arterial (test 96.6 % 96.0-97.0 code = 2708-6) HCO3, Arterial (test 23 mmol/L 21-29 code = 1960-4) Base Excess, Arterial -1.3 mmol/L -2.0-3.0 (test code = 1925-7) Patient Temperature 38.5 (test code = 8310-5) FIO2 (test code = 1819) 100 Lab Interpretation Abnormal (test code = 15875-8) [facility] gas, [id number] 05:16:22 Test Item Value Reference Range Interpretation Comments pH, Arterial (test code 7.40 7.35-7.45 = 2744-1) pCO2, Arterial (test 38 See_Comment [Autom ated code = 2019-02) message] The system which generated this result transmitted reference range : 35 - 45 mm Hg. The reference range was not used to interpret this result as normal/abnormal . pO2, Arterial (test 93 See_Comment H [Automa mendoza code = 2703-7) message] The system which generated this result transmitted reference range : 80 - 90 mm Hg. The reference range was not used to interpret this result as normal/abnormal . O2 Sat, Arterial (test 96.6 % 96.0-97.0 code = 2708-6) HCO3, Arterial (test 23 mmol/L 21-29 code = 1960-4) Base Excess, Arterial -1.3 mmol/L -2.0-3.0 (test code = 1925-7) Patient Temperature 38.5 (test code = 8310-5) FIO2 (test code = 1819) 100.0 Lab Interpretation Abnormal (test code = 34126-7) [facility] [id number] 05:16:22 Test Item Value Reference Range Interpretation Comments pH, Arterial (test code 7.40 7.35-7.45 = 2744-1) pCO2, Arterial (test 38 See_Comment [Autom ated code = 2019-02) message] The system which generated this result transmitted reference range : 35 - 45 mm Hg. The reference range was not used to interpret this result as normal/abnormal . pO2, Arterial (test 93 See_Comment H [Automa mendoza code = 2703-7) message] The system which generated this result transmitted reference range : 80 - 90 mm Hg. The reference range was not used to interpret this result as normal/abnormal . O2 Sat, Arterial (test 96.6 % 96.0-97.0 code = 2708-6) HCO3, Arterial (test 23 mmol/L 21-29 code = 1960-4) Base Excess, Arterial -1.3 mmol/L -2.0-3.0 (test code = 1925-7) Patient Temperature 38.5 (test code = 8310-5) FIO2 (test code = 1819) 100.0 Lab Interpretation Abnormal (test code = 05738-2) [facility] [id number] 05:16:22 Test Item Value Reference Range Interpretation Comments pH, Arterial (test code 7.40 7.35-7.45 = 2744-1) pCO2, Arterial (test 38 See_Comment [Autom ated code = 2019-) message] The system which generated this result transmitted reference range : 35 - 45 mm Hg. The reference range was not used to interpret this result as normal/abnormal . pO2, Arterial (test 93 See_Comment H [Automa mendoza code = 2703-7) message] The system which generated this result transmitted reference range : 80 - 90 mm Hg. The reference range was not used to interpret this result as normal/abnormal . O2 Sat, Arterial (test 96.6 % 96.0-97.0 code = 2708-6) HCO3, Arterial (test 23 mmol/L 21-29 code = 1960-4) Base Excess, Arterial -1.3 mmol/L -2.0-3.0 (test code = 1925-7) Patient Temperature 38.5 (test code = 8310-5) FIO2 (test code = 1819) 100.0 Lab Interpretation Abnormal (test code = 72139-2) [facility], [id number] 05:16:22 Test Item Value Reference Range Interpretation Comments pH, Arterial (test code 7.40 7.35-7.45 = 2744-1) pCO2, Arterial (test 38 See_Comment [Autom ated code = 2018-) message] The system which generated this result transmitted reference range : 35 - 45 mm Hg. The reference range was not used to interpret this result as normal/abnormal . pO2, Arterial (test 93 See_Comment H [Automa mendoza code = 2703-7) message] The system which generated this result transmitted reference range : 80 - 90 mm Hg. The reference range was not used to interpret this result as normal/abnormal . O2 Sat, Arterial (test 96.6 % 96.0-97.0 code = 2708-6) HCO3, Arterial (test 23 mmol/L 21-29 code = 1960-4) Base Excess, Arterial -1.3 mmol/L -2.0-3.0 (test code = 1925-7) Patient Temperature 38.5 (test code = 8310-5) FIO2 (test code = 1819) 100.0 Lab Interpretation Abnormal (test code = 75428-1) [facility], [id number] 05:16:22 Test Item Value Reference Range Interpretation Comments pH, Arterial (test code 7.40 7.35-7.45 = 2744-1) pCO2, Arterial (test 38 See_Comment [Autom ated code = 2019-02) message] The system which generated this result transmitted reference range : 35 - 45 mm Hg. The reference range was not used to interpret this result as normal/abnormal . pO2, Arterial (test 93 See_Comment H [Automa mendoza code = 2703-7) message] The system which generated this result transmitted reference range : 80 - 90 mm Hg. The reference range was not used to interpret this result as normal/abnormal . O2 Sat, Arterial (test 96.6 % 96.0-97.0 code = 2708-6) HCO3, Arterial (test 23 mmol/L 21-29 code = 1960-4) Base Excess, Arterial -1.3 mmol/L -2.0-3.0 (test code = 1925-7) Patient Temperature 38.5 (test code = 8310-5) FIO2 (test code = 1819) 100.0 Lab Interpretation Abnormal (test code = 33529-1) [facility], [id number] 05:16:22 Test Item Value Reference Range Interpretation Comments pH, Arterial (test code 7.40 7.35-7.45 = 2744-1) pCO2, Arterial (test 38 See_Comment [Autom ated code = 2019-02) message] The system which generated this result transmitted reference range : 35 - 45 mm Hg. The reference range was not used to interpret this result as normal/abnormal . pO2, Arterial (test 93 See_Comment H [Automa mendoza code = 2703-7) message] The system which generated this result transmitted reference range : 80 - 90 mm Hg. The reference range was not used to interpret this result as normal/abnormal . O2 Sat, Arterial (test 96.6 % 96.0-97.0 code = 2708-6) HCO3, Arterial (test 23 mmol/L 21-29 code = 1960-4) Base Excess, Arterial -1.3 mmol/L -2.0-3.0 (test code = 1925-7) Patient Temperature 38.5 (test code = 8310-5) FIO2 (test code = 1819) 100.0 Lab Interpretation Abnormal (test code = 47206-5) [facility] gas, [id number] 05:16:22 Test Item Value Reference Range Interpretation Comments pH, Arterial (test code 7.40 7.35-7.45 = 2744-1) pCO2, Arterial (test 38 See_Comment [Autom ated code = 2019-02) message] The system which generated this result transmitted reference range : 35 - 45 mm Hg. The reference range was not used to interpret this result as normal/abnormal . pO2, Arterial (test 93 See_Comment H [Automa mendoza code = 2703-7) message] The system which generated this result transmitted reference range : 80 - 90 mm Hg. The reference range was not used to interpret this result as normal/abnormal . O2 Sat, Arterial (test 96.6 % 96.0-97.0 code = 2708-6) HCO3, Arterial (test 23 mmol/L 21-29 code = 1960-4) Base Excess, Arterial -1.3 mmol/L -2.0-3.0 (test code = 1925-7) Patient Temperature 38.5 (test code = 8310-5) FIO2 (test code = 1819) 100.0 Lab Interpretation Abnormal (test code = 60932-9) [facility] gas, [id number] 05:16:22 Test Item Value Reference Range Interpretation Comments pH, Arterial (test code 7.40 7.35-7.45 = 2744-1) pCO2, Arterial (test 38 See_Comment [Autom ated code = 2019-02) message] The system which generated this result transmitted reference range : 35 - 45 mm Hg. The reference range was not used to interpret this result as normal/abnormal . pO2, Arterial (test 93 See_Comment H [Automa mendoza code = 2703-7) message] The system which generated this result transmitted reference range : 80 - 90 mm Hg. The reference range was not used to interpret this result as normal/abnormal . O2 Sat, Arterial (test 96.6 % 96.0-97.0 code = 2708-6) HCO3, Arterial (test 23 mmol/L 21-29 code = 1960-4) Base Excess, Arterial -1.3 mmol/L -2.0-3.0 (test code = 1925-7) Patient Temperature 38.5 (test code = 8310-5) FIO2 (test code = 1819) 100.0 Lab Interpretation Abnormal (test code = 57358-0) [facility] gas, [id number] 05:16:22 Test Item Value Reference Range Interpretation Comments pH, Arterial (test code 7.40 7.35-7.45 = 2744-1) pCO2, Arterial (test 38 See_Comment [Autom ated code = 2019-02) message] The system which generated this result transmitted reference range : 35 - 45 mm Hg. The reference range was not used to interpret this result as normal/abnormal . pO2, Arterial (test 93 See_Comment H [Automa mendoza code = 2703-7) message] The system which generated this result transmitted reference range : 80 - 90 mm Hg. The reference range was not used to interpret this result as normal/abnormal . O2 Sat, Arterial (test 96.6 % 96.0-97.0 code = 2708-6) HCO3, Arterial (test 23 mmol/L 21-29 code = 1960-4) Base Excess, Arterial -1.3 mmol/L -2.0-3.0 (test code = 1925-7) Patient Temperature 38.5 (test code = 8310-5) FIO2 (test code = 1819) 100.0 Lab Interpretation Abnormal (test code = 00499-8) [facility] [id number] 05:16:22 Test Item Value Reference Range Interpretation Comments pH, Arterial (test code 7.40 7.35-7.45 = 2744-1) pCO2, Arterial (test 38 See_Comment [Autom ated code = 2019-02) message] The system which generated this result transmitted reference range : 35 - 45 mm Hg. The reference range was not used to interpret this result as normal/abnormal . pO2, Arterial (test 93 See_Comment H [Automa mendoza code = 2703-7) message] The system which generated this result transmitted reference range : 80 - 90 mm Hg. The reference range was not used to interpret this result as normal/abnormal . O2 Sat, Arterial (test 96.6 % 96.0-97.0 code = 2708-6) HCO3, Arterial (test 23 mmol/L 21-29 code = 1960-4) Base Excess, Arterial -1.3 mmol/L -2.0-3.0 (test code = 1925-7) Patient Temperature 38.5 (test code = 8310-5) FIO2 (test code = 1819) 100 Lab Interpretation Abnormal (test code = 68727-9) [facility], [id number] 05:16:22 Test Item Value Reference Range Interpretation Comments pH, Arterial (test code 7.40 7.35-7.45 = 2744-1) pCO2, Arterial (test 38 See_Comment [Autom ated code = 2019-02) message] The system which generated this result transmitted reference range : 35 - 45 mm Hg. The reference range was not used to interpret this result as normal/abnormal . pO2, Arterial (test 93 See_Comment H [Automa mendoza code = 2703-7) message] The system which generated this result transmitted reference range : 80 - 90 mm Hg. The reference range was not used to interpret this result as normal/abnormal . O2 Sat, Arterial (test 96.6 % 96.0-97.0 code = 2708-6) HCO3, Arterial (test 23 mmol/L 21-29 code = 1960-4) Base Excess, Arterial -1.3 mmol/L -2.0-3.0 (test code = 1925-7) Patient Temperature 38.5 (test code = 8310-5) FIO2 (test code = 1819) 100.0 Lab Interpretation Abnormal (test code = 92842-1) [facility] [id number] 05:16:22 Test Item Value Reference Range Interpretation Comments pH, Arterial (test code 7.40 7.35-7.45 = 2744-1) pCO2, Arterial (test 38 See_Comment [Autom ated code = 2019-02) message] The system which generated this result transmitted reference range : 35 - 45 mm Hg. The reference range was not used to interpret this result as normal/abnormal . pO2, Arterial (test 93 See_Comment H [Automa mendoza code = 2703-7) message] The system which generated this result transmitted reference range : 80 - 90 mm Hg. The reference range was not used to interpret this result as normal/abnormal . O2 Sat, Arterial (test 96.6 % 96.0-97.0 code = 2708-6) HCO3, Arterial (test 23 mmol/L 21-29 code = 1960-4) Base Excess, Arterial -1.3 mmol/L -2.0-3.0 (test code = 1925-7) Patient Temperature 38.5 (test code = 8310-5) FIO2 (test code = 1819) 100 Lab Interpretation Abnormal (test code = 54403-6) [facility], [id number] 05:16:22 Test Item Value Reference Range Interpretation Comments pH, Arterial (test code 7.40 7.35-7.45 = 2744-1) pCO2, Arterial (test 38 See_Comment [Autom ated code = 2019-02) message] The system which generated this result transmitted reference range : 35 - 45 mm Hg. The reference range was not used to interpret this result as normal/abnormal . pO2, Arterial (test 93 See_Comment H [Automa mendoza code = 2703-7) message] The system which generated this result transmitted reference range : 80 - 90 mm Hg. The reference range was not used to interpret this result as normal/abnormal . O2 Sat, Arterial (test 96.6 % 96.0-97.0 code = 2708-6) HCO3, Arterial (test 23 mmol/L 21-29 code = 1960-4) Base Excess, Arterial -1.3 mmol/L -2.0-3.0 (test code = 1925-7) Patient Temperature 38.5 (test code = 8310-5) FIO2 (test code = 1819) 100 Lab Interpretation Abnormal (test code = 93187-3) [facility] [id number] 05:16:22 Test Item Value Reference Range Interpretation Comments pH, Arterial (test code 7.40 7.35-7.45 = 2744-1) pCO2, Arterial (test 38 See_Comment [Autom ated code = 2019-02) message] The system which generated this result transmitted reference range : 35 - 45 mm Hg. The reference range was not used to interpret this result as normal/abnormal . pO2, Arterial (test 93 See_Comment H [Automa mendoza code = 2703-7) message] The system which generated this result transmitted reference range : 80 - 90 mm Hg. The reference range was not used to interpret this result as normal/abnormal . O2 Sat, Arterial (test 96.6 % 96.0-97.0 code = 2708-6) HCO3, Arterial (test 23 mmol/L 21-29 code = 1960-4) Base Excess, Arterial -1.3 mmol/L -2.0-3.0 (test code = 1925-7) Patient Temperature 38.5 (test code = 8310-5) FIO2 (test code = 1819) 100 Lab Interpretation Abnormal (test code = 49909-7) [facility], [id number] 05:16:22 Test Item Value Reference Range Interpretation Comments pH, Arterial (test code 7.40 7.35-7.45 = 2744-1) pCO2, Arterial (test 38 See_Comment [Autom ated code = 2019-02) message] The system which generated this result transmitted reference range : 35 - 45 mm Hg. The reference range was not used to interpret this result as normal/abnormal . pO2, Arterial (test 93 See_Comment H [Automa mendoza code = 2703-7) message] The system which generated this result transmitted reference range : 80 - 90 mm Hg. The reference range was not used to interpret this result as normal/abnormal . O2 Sat, Arterial (test 96.6 % 96.0-97.0 code = 2708-6) HCO3, Arterial (test 23 mmol/L 21-29 code = 1960-4) Base Excess, Arterial -1.3 mmol/L -2.0-3.0 (test code = 1925-7) Patient Temperature 38.5 (test code = 8310-5) FIO2 (test code = 1819) 100 Lab Interpretation Abnormal (test code = 10438-1) [facility] gas, [id number] 05:16:22 Test Item Value Reference Range Interpretation Comments pH, Arterial (test code 7.40 7.35-7.45 = 2744-1) pCO2, Arterial (test 38 See_Comment [Autom ated code = 2019-02) message] The system which generated this result transmitted reference range : 35 - 45 mm Hg. The reference range was not used to interpret this result as normal/abnormal . pO2, Arterial (test 93 See_Comment H [Automa mendoza code = 2703-7) message] The system which generated this result transmitted reference range : 80 - 90 mm Hg. The reference range was not used to interpret this result as normal/abnormal . O2 Sat, Arterial (test 96.6 % 96.0-97.0 code = 2708-6) HCO3, Arterial (test 23 mmol/L 21-29 code = 1960-4) Base Excess, Arterial -1.3 mmol/L -2.0-3.0 (test code = 1925-7) Patient Temperature 38.5 (test code = 8310-5) FIO2 (test code = 1819) 100 Lab Interpretation Abnormal (test code = 02425-5) [facility] gas, [id number] 05:16:22 Test Item Value Reference Range Interpretation Comments pH, Arterial (test code 7.40 7.35-7.45 = 2744-1) pCO2, Arterial (test 38 See_Comment [Autom ated code = 2019-02) message] The system which generated this result transmitted reference range : 35 - 45 mm Hg. The reference range was not used to interpret this result as normal/abnormal . pO2, Arterial (test 93 See_Comment H [Automa mendoza code = 2703-7) message] The system which generated this result transmitted reference range : 80 - 90 mm Hg. The reference range was not used to interpret this result as normal/abnormal . O2 Sat, Arterial (test 96.6 % 96.0-97.0 code = 2708-6) HCO3, Arterial (test 23 mmol/L 21-29 code = 1960-4) Base Excess, Arterial -1.3 mmol/L -2.0-3.0 (test code = 1925-7) Patient Temperature 38.5 (test code = 8310-5) FIO2 (test code = 1819) 100 Lab Interpretation Abnormal (test code = 12021-6) [facility] gas, [id number] 05:16:22 Test Item Value Reference Range Interpretation Comments pH, Arterial (test code 7.40 7.35-7.45 = 2744-1) pCO2, Arterial (test 38 See_Comment [Autom ated code = 2019-02) message] The system which generated this result transmitted reference range : 35 - 45 mm Hg. The reference range was not used to interpret this result as normal/abnormal . pO2, Arterial (test 93 See_Comment H [Automa mendoza code = 2703-7) message] The system which generated this result transmitted reference range : 80 - 90 mm Hg. The reference range was not used to interpret this result as normal/abnormal . O2 Sat, Arterial (test 96.6 % 96.0-97.0 code = 2708-6) HCO3, Arterial (test 23 mmol/L 21-29 code = 1960-4) Base Excess, Arterial -1.3 mmol/L -2.0-3.0 (test code = 1925-7) Patient Temperature 38.5 (test code = 8310-5) FIO2 (test code = 1819) 100 Lab Interpretation Abnormal (test code = 85726-7) [facility] gas, [id number] 05:16:22 Test Item Value Reference Range Interpretation Comments pH, Arterial (test code 7.40 7.35-7.45 = 2744-1) pCO2, Arterial (test 38 See_Comment [Autom ated code = 2019-02) message] The system which generated this result transmitted reference range : 35 - 45 mm Hg. The reference range was not used to interpret this result as normal/abnormal . pO2, Arterial (test 93 See_Comment H [Automa mendoza code = 2703-7) message] The system which generated this result transmitted reference range : 80 - 90 mm Hg. The reference range was not used to interpret this result as normal/abnormal . O2 Sat, Arterial (test 96.6 % 96.0-97.0 code = 2708-6) HCO3, Arterial (test 23 mmol/L 21-29 code = 1960-4) Base Excess, Arterial -1.3 mmol/L -2.0-3.0 (test code = 1925-7) Patient Temperature 38.5 (test code = 8310-5) FIO2 (test code = 1819) 100 Lab Interpretation Abnormal (test code = 59131-2) [facility] [id number] 05:16:22 Test Item Value Reference Range Interpretation Comments pH, Arterial (test code 7.40 7.35-7.45 = 2744-1) pCO2, Arterial (test 38 See_Comment [Autom ated code = 2019-02) message] The system which generated this result transmitted reference range : 35 - 45 mm Hg. The reference range was not used to interpret this result as normal/abnormal . pO2, Arterial (test 93 See_Comment H [Automa mendoza code = 2703-7) message] The system which generated this result transmitted reference range : 80 - 90 mm Hg. The reference range was not used to interpret this result as normal/abnormal . O2 Sat, Arterial (test 96.6 % 96.0-97.0 code = 2708-6) HCO3, Arterial (test 23 mmol/L 21-29 code = 1960-4) Base Excess, Arterial -1.3 mmol/L -2.0-3.0 (test code = 1925-7) Patient Temperature 38.5 (test code = 8310-5) FIO2 (test code = 1819) 100 Lab Interpretation Abnormal (test code = 06327-4) [facility], [id number] 05:16:22 Test Item Value Reference Range Interpretation Comments pH, Arterial (test code 7.40 7.35-7.45 = 2744-1) pCO2, Arterial (test 38 See_Comment [Autom ated code = 2019-02) message] The system which generated this result transmitted reference range : 35 - 45 mm Hg. The reference range was not used to interpret this result as normal/abnormal . pO2, Arterial (test 93 See_Comment H [Automa mendoza code = 2703-7) message] The system which generated this result transmitted reference range : 80 - 90 mm Hg. The reference range was not used to interpret this result as normal/abnormal . O2 Sat, Arterial (test 96.6 % 96.0-97.0 code = 2708-6) HCO3, Arterial (test 23 mmol/L 21-29 code = 1960-4) Base Excess, Arterial -1.3 mmol/L -2.0-3.0 (test code = 1925-7) Patient Temperature 38.5 (test code = 8310-5) FIO2 (test code = 1819) 100 Lab Interpretation Abnormal (test code = 31996-8) [facility] [id number] 05:16:22 Test Item Value Reference Range Interpretation Comments pH, Arterial (test code 7.40 7.35-7.45 = 2744-1) pCO2, Arterial (test 38 See_Comment [Autom ated code = 2019-8) message] The system which generated this result transmitted reference range : 35 - 45 mm Hg. The reference range was not used to interpret this result as normal/abnormal . pO2, Arterial (test 93 See_Comment H [Automa mendoza code = 2703-7) message] The system which generated this result transmitted reference range : 80 - 90 mm Hg. The reference range was not used to interpret this result as normal/abnormal . O2 Sat, Arterial (test 96.6 % 96.0-97.0 code = 2708-6) HCO3, Arterial (test 23 mmol/L 21-29 code = 1960-4) Base Excess, Arterial -1.3 mmol/L -2.0-3.0 (test code = 1925-7) Patient Temperature 38.5 (test code = 8310-5) FIO2 (test code = 1819) 100.0 Lab Interpretation Abnormal (test code = 11265-6) [facility], [id number] 05:16:22 Test Item Value Reference Range Interpretation Comments PH ARTERIAL (BEAKER) (test code = 7.40 7.35-7.45 383) PCO2 ARTERIAL (BEAKER) (test code 38 mm Hg 35-45 = 384) PO2 ARTERIAL (BEAKER) (test code 93 mm Hg 80-90 H = 385) O2 SATURATION ARTERIAL (BEAKER) 96.6 % 96.0-97.0 (test code = 386) HCO3 ARTERIAL (BEAKER) (test code 23 mmol/L 21-29 = 388) BASE EXCESS ARTERIAL (BEAKER) -1.3 mmol/L -2.0-3.0 (test code = 387) PATIENT TEMPERATURE (BEAKER) 38.5 (test code = 1818) FIO2 (BEAKER) (test code = 1819) 100.0 [id number] 05:09:04 Test Item Value Reference Range Interpretation Comments D-DIMER QUANTITATIVE 2.35 MG/L FEU <0.50 H Final Information (BEAKER) (test code = (Auto Output) 671) REGARDING D-DIMER RESULTS: The 98% NPV (Negative Predictive Value) for DVT/PE exclusion is 0.50 mg/LFEU as suggested by the stitch rubber and as approved by the FDA.PT/[id number] 05:09:04 Test Item Value Reference Range Interpretation Comments PROTIME (BEAKER) (test 11.0 seconds 9.3-12.0 Final Information code = 759) (Auto Output) INR (BEAKER) (test 1.00 <=5.90 Final Inf ormation code = 370) (Auto Output) PARTIAL THROMBOPLASTIN 28.3 seconds 23.0-35.0 Final Information TIME (BEAKER) (test (Auto Ou tput) code = 760) RECOMMENDED COUMADIN/WARFARIN INR THERAPY RANGESSTANDARD DOSE: 2.0 - 3.0 Includes: PROPHYLAXIS for venous thrombosis, systemic embolization; TREATMENT for venous thrombosis and/or pulmonary embolus.HIGH RISK: Target INR is 2.5-3.5 for patients with mechanical heart valves.B-TYPE NATRIURETIC FACTOR (BNP) 2022-11-30 04:54:53 Test Item Value Reference Range Interpretation Comments B-TYPE NATRIURETIC PEPTIDE (BEAKER) 258 pg/mL 0-100 H (test code = 700) Campus Security Officer ID - LITOCOMPREHENSIVE METABOLIC [id number] 04:53:02 Test Item Value Reference Range Interpretation Comments TOTAL PROTEIN 6.8 gm/dL 6.0-8.5 (BEAKER) (test code = 770) ALBUMIN (BEAKER) 3.0 g/dL 3.5-5.0 L (test code = 1145) ALKALINE 120 U/L 30-115 H PHOSPHATASE (BEAKER) (test code = 346) BILIRUBIN TOTAL 0.3 mg/dL 0.1-1.2 (BEAKER) (test code = 377) SODIUM (BEAKER) 144 meq/L 135-148 (test code = 381) POTASSIUM (BEAKER) 5.0 meq/L 3.6-5.5 (test code = 379) CHLORIDE (BEAKER) 106 meq/L 98-106 (test code = 382) CO2 (BEAKER) (test 22 meq/L 20-29 code = 355) BLOOD UREA 78 mg/dL 10-26 H NITROGEN (BEAKER) (test code = 354) CREATININE 3.86 mg/dL 0.50-1.20 H (BEAKER) (test code = 358) GLUCOSE RANDOM 303 mg/dL 70-110 H (BEAKER) (test code = 652) CALCIUM (BEAKER) 9.6 mg/dL 8.5-10.5 (test code = 697) AST (SGOT) 21 U/L 5-40 (BEAKER) (test code = 353) ALT (SGPT) 23 U/L 5-50 (BEAKER) (test code = 347) EGFR (BEAKER) 18 Interpretatio n of eGFR (test code = 1092) mL/min/1.[address] age Description sq m Result G1 Mary Jo l or high >=90 G2 Mildly decreased 60-89 G3a Mildl y to moderately 45-5 9 G3b Moderately to s everely 30-44 G4 Severl y decreased 15-29 G5 Kidney failure <15Reported eGF R is based on the CKD-EPI 2021 equation that d oes not use a race coefficientEsti mated GFR is not as accur ate as Creatinine Genevieve naidu in predicting glom erular filtration rate . Estimated GFR is not appl icable for dialysis patien ts Campus Security Officer ID - LITOOperator ID - LITOOperator ID - LITOOperator ID - LITOOperator ID - LITOOperator ID - LITOOperator ID - LITOOperator ID - LITOOperator ID - LITOOperator ID - LITOOperator ID - LITOOperator ID - LITOOperator ID - LITOOperator ID - LITOOperator ID - LITOOperator ID - [id number] 04:52:39 Test Item Value Reference Range Interpretation Comments PHOSPHORUS (BEAKER) (test code = 1.3 mg/dL 2.5-4.5 LL 604) Campus Security Officer ID - LITOCREATINE KINASE (CK)2022-11-30 04:52:28 Test Item Value Reference Range Interpretation Comments CREATINE KINASE TOTAL (BEAKER) (test 112 U/L 40-250 code = 380) Campus Security Officer ID - [id number] 04:51:50 Test Item Value Reference Range Interpretation Comments MAGNESIUM (BEAKER) (test code = 2.0 mg/dL 1.5-3.0 627) Campus Security Officer ID - LITOOperator ID - LITOOperator ID - LITOOperator ID - LITOLACTIC ACID, [id number] 04:51:42 Test Item Value Reference Range Interpretation Comments LACTATE BLOOD 3.11 mmol/L See_Comment HH Specimen sligh tly VENOUS (2) (BEAKER) hemolyze d [Automated (test code = 2872) message] The system which generated this result transmit mendoza reference range : 0.50-<2.00. The reference range was not used to interpr et this result as normal/abnormal . Campus Security Officer ID - LITOOperator ID - LITOOperator ID - LITOOperator ID - LITORAD, CHEST, 1 VIEW, NON [id number] 04:33:00Reason for exam:->aspiration pneumonia[facility] : 1965 Sex: MFINAL REPORT INDICATION: aspiration pneumonia COMPARISON: None TECHNIQUE: Single frontal view of the chest. IMPRESSION: Lungs and pleura: The tracheostomy cannula terminates in the mid thoracic trachea. Hazy airspace opacities of the right lung concerning for pneumonia. Small portion of the left costophrenic angle is not included within the dsdho-ta-omkd. Left lung is otherwise clear. No effusion. Heart and mediastinum: Normal heart size. Unremarkable mediastinal contours. Osseous structures: No acute abnormality. Other: None. Signed: Deborah Palumboeport Verified Date/Time: 11/30/2022 04:33:08 IUM, [id number] 04:28:52 Test Item Value Reference Range Interpretation Comments CALCIUM IONIZED (BEAKER) (test 1.19 mmol/L 1.12-1.27 code = 698) PH, BLOOD (BEAKER) (test code = 7.36 1810) POC-Glucose [id number] 04:17:40 Test Item Value Reference Range Interpretation Comments POC-Glucose Meter (test 321 mg/dL 70-110 H : [facility] [place] [address]: Campus Security Officer/Techni jr ID = [id number] for Corpin, Rizalin a Lab Interpretation (test Abnormal code = 23198-7) [facility]-Glucose [id number] 04:17:40 Test Item Value Reference Range Interpretation Comments POC-Glucose Meter (test 321 mg/dL 70-110 H : [facility] = [facility] [place] [address]6068: Campus Security Officer/Techni jr ID = [id number] for Corpin, Rizalin a Lab Interpretation (test Abnormal code = 99842-0) [facility]-Glucose [id number] 04:17:40 Test Item Value Reference Range Interpretation Comments POC-Glucose Meter (test 321 mg/dL 70-110 H : TE STED AT [facility] code = 1538) [facility] [place] [address]6068: Campus Security Officer/Techni jr ID = [id number] for Corpin, Rizalin a Lab Interpretation (test Abnormal code = 06354-3) [facility] [id number] 04:17:40 Test Item Value Reference Range Interpretation Comments POC-Glucose Meter (test 321 mg/dL 70-110 H : TE STED AT [facility] code = 1538) [address] [place] [address]: Campus Security Officer/Techni jr ID = [id number] for Corpin, Rizalin a Lab Interpretation (test Abnormal code = 74462-9) [facility] [id number] 04:17:40 Test Item Value Reference Range Interpretation Comments POC-Glucose Meter (test 321 mg/dL 70-110 H : TE STED AT [facility] code = 1538) [address] [place] [address]: Campus Security Officer/Techni jr ID = [id number] for Corpin, Rizalin a Lab Interpretation (test Abnormal code = 82849-3) [facility] [id number] 04:17:40 Test Item Value Reference Range Interpretation Comments POC-Glucose Meter (test 321 mg/dL 70-110 H : TE STED AT [facility] code = 1538) [address] [place], [place] [address]: Campus Security Officer/Techni jr ID = [id number] for Corpin, Rizalin a Lab Interpretation (test Abnormal code = 17007-0) [facility] [id number] 04:17:40 Test Item Value Reference Range Interpretation Comments POC-Glucose Meter (test 321 mg/dL 70-110 H : TE STED AT [facility] code = 1538) [address] [place] [address]: Campus Security Officer/Techni jr ID = [id number] for Corpin, Rizalin a Lab Interpretation (test Abnormal code = 14318-1) [facility] [id number] 04:17:40 Test Item Value Reference Range Interpretation Comments POC-Glucose Meter (test 321 mg/dL 70-110 H : TE STED AT [facility] code = 1538) [address] [place], [place] [address]: Campus Security Officer/Techni jr ID = [id number] for Corpin, Rizalin a Lab Interpretation (test Abnormal code = 90665-5) [facility] [id number] 04:17:40 Test Item Value Reference Range Interpretation Comments POC-GLUCOSE METER 321 mg/dL 70-110 H : TESTED A T [facility] [address] (BEAKER) (test code [address], = 1538) [facility] [place] [address]: Campus Security Officer/Techni jr ID = [id number] for Veronica inCamryn URINALYSIS [id number] 17:35:00 Test Item Value Reference Range Interpretation Comments UA COLOR (test code = YELLOW YELLOW COLU) UA APPEARANCE (test Turbid CLEAR code = APPU) UA GLUCOSE DIPSTICK NEGATIVE NEGATIVE (test code = DGLUU) UA BILIRUBIN DIPSTICK NEGATIVE NEGATIVE (test code = BILU) UA KETONE DIPSTICK NEGATIVE NEGATIVE (test code = KETU) UA SPECIFIC GRAVITY 1.013 1.001-1.030 (test code = SGU) UA BLOOD DIPSTICK 1+ NEGATIVE (test code = ELIZABETH) UA PH DIPSTICK (test 6.0 5.0-9.0 code = ARNOLD) UA PROTEIN DIPSTICK 3+ NEGATIVE A (test code = PROU) UA UROBILINOGEN NEGATIVE See_Comment [Automated message] DIPSTICK (test code = The sy stem which URO) generated this result transmit mendoza reference range : <=1.0. The refe rence range was not u sed to interpret th is result as normal/abnormal . UA NITRITE DIPSTICK NEGATIVE NEGATIVE (test code = SIDDHARTH) UA ASCORBIC ACID NEGATIVE DIPSTICK (test code = AAU) UA LEUKOCYTE ESTERASE 3+ NEGATIVE A DIPSTICK (test code = LEUU) UA WBC (test code = 51-100 /HPF 0-5 WBCU) UA RBC (test code = 21-50 /HPF 0-5 RBCU) UA EPITHELIAL CELLS None /LPF NONE-FEW (test code = EPIU) UA BACTERIA (test code 1+ /HPF NONE SEEN A = BACU) UA AMORPHOUS SEDIMENT 4+ /HPF NONE SEEN (test code = AMORU) UA YEAST (test code = MANY /HPF NONE SEEN YEASTU) POCT GLUCOSE (AUTOMATED)2022-09-05 23:49:18 Test Item Value Reference Range Interpretation Comments POCT GLU (test code = 148 mg/dL 70-110 H Notifi ed Provider [id number]) Lab Interpretation (test Abnormal code = 30161-2) [facility]-05 22:56:06 Test Item Value Reference Range Interpretation Comments POCT GLU (test code = 3929847460) 195 mg/dL 70-110 H Lab Interpretation (test code = Abnormal 43014-1) [facility] GLUCOSE (AUTOMATED)2022-09-05 14:17:47 Test Item Value Reference Range Interpretation Comments POCT GLU (test code = 1726046458) 175 mg/dL 70-110 H Lab Interpretation (test code = Abnormal 58501-1) [facility] GLUCOSE (AUTOMATED)2022-09-05 13:23:16 Test Item Value Reference Range Interpretation Comments POCT GLU (test code = 2903148486) 131 mg/dL 70-110 H Lab Interpretation (test code = Abnormal 83070-5) [facility] GLUCOSE (AUTOMATED)2022-09-05 06:52:24 Test Item Value Reference Range Interpretation Comments POCT GLU (test code = 4960407853) 263 mg/dL 70-110 H Lab Interpretation (test code = Abnormal 56864-8) [facility]2022-09-05 03:46:21 Test Item Value Reference Range Interpretation Comments POCT GLU (test code = 9490930313) 218 mg/dL 70-110 H Lab Interpretation (test code = Abnormal 38043-1) [facility]2022-09-04 22:38:19 Test Item Value Reference Range Interpretation Comments POCT GLU (test code = 9504734911) 119 mg/dL 70-110 H Lab Interpretation (test code = Abnormal 25087-3) [facility]-04 18:17:42 Test Item Value Reference Range Interpretation Comments POCT GLU (test code = 8600487000) 266 mg/dL 70-110 H Lab Interpretation (test code = Abnormal 34047-9) [facility] GLUCOSE (AUTOMATED)2022-09-04 15:48:28 Test Item Value Reference Range Interpretation Comments POCT GLU (test code = 2462701140) 118 mg/dL 70-110 H Lab Interpretation (test code = Abnormal 55752-6) [facility] GLUCOSE (AUTOMATED)2022-09-04 06:50:30 Test Item Value Reference Range Interpretation Comments POCT GLU (test code = 4215789377) 234 mg/dL 70-110 H Lab Interpretation (test code = Abnormal 03004-9) [facility] GLUCOSE (AUTOMATED)2022-09-04 05:25:14 Test Item Value Reference Range Interpretation Comments POCT GLU (test code = 6570203486) 299 mg/dL 70-110 H Lab Interpretation (test code = Abnormal 45031-6) [facility] GLUCOSE (AUTOMATED)2022-09-04 02:56:47 Test Item Value Reference Range Interpretation Comments POCT GLU (test code = 2870675758) 366 mg/dL 70-110 H Lab Interpretation (test code = Abnormal 16009-3) [facility] GLUCOSE (AUTOMATED)2022-09-03 23:23:14 Test Item Value Reference Range Interpretation Comments POCT GLU (test code = 8539279681) 334 mg/dL 70-110 H Lab Interpretation (test code = Abnormal 97911-5) [facility] GLUCOSE (AUTOMATED)2022-09-03 18:02:16 Test Item Value Reference Range Interpretation Comments POCT GLU (test code = 1994591232) 258 mg/dL 70-110 H Lab Interpretation (test code = Abnormal 39928-1) [facility] GLUCOSE (AUTOMATED)2022-09-03 14:08:55 Test Item Value Reference Range Interpretation Comments POCT GLU (test code = 9705148503) 71 mg/dL 70-110 Lab Interpretation (test code = Normal 56595-4) [facility] METABOLIC PANEL (NA, K, CL, CO2, GLUCOSE, BUN, CREATININE, CA)2022-09-03 11:33:57 Test Item Value Reference Range Interpretation Comments NA (test code = 140 mmol/L 135-145 2397142321) K (test code = 3.7 mmol/L 3.5-5.0 0966355587) CL (test code = 106 mmol/L 98-108 8994824904) CO2 TOTAL (test code = 27 mmol/L 23-31 0346986001) AGAP (test code = 7 2-16 4264149503) BUN (test code = 62 mg/dL 7-23 H 3998969740) GLUCOSE (test code = 138 mg/dL 70-110 H 5333238683) CREATININE (test code = 1.95 mg/dL 0.60-1.25 H 0660169981) CALCIUM (test code = 8.9 mg/dL 8.6-10.6 2825886966) eGFR (test code = 35.9 mL/min/1.73m2 5965744186) OSBALDO (test code = OSBALDO) Association of Glomerular Filtration Rate (GFR) and Staging of Kidney Disease* + --+ --+ ------+| GFR (mL/min/1.73 m2) ?| With Kidney Damage ?| ?Without Kidney Damage+ --------+ --------+ +| ?>90 ?| ?Stage one ?| ? Normal ?+ ---+ ---+ -------+| ?60-89 ?| ?Stage two ?| ? Decreased GFR ? + --+ --+ ------+| ?30-59 ?| ?Stage three ?| ? Stage three ? + --+ --+ ------+| ?15-29 ?| ?Stage four ? | ? Stage four ?+ ---+ ---+ -------+| ?<15 (or dialysis) ? ?| ?Stage five ? | ? Stage five ?+ ---+ ---+ -------+ *Each stage assumes the associated GFR level has been in effect for at least three months. ?Stages 1 to 5, with or without kidney disease, indicate chronic kidney disease. Notes: Determination of stages one and two (with eGFR >59mL/min/1.73 m2) requires estimation of kidney damage for at least three months as defined by structural or functional abnormalities of the kidney, manifested by either:Pathological abnormalities or Markers of kidney damage (including abnormalities in the composition of the blood or urine or abnormalities in imaging tests). Lab Interpretation Abnormal (test code = 36975-3) [facility] WITH [id number] 11:18:35 Test Item Value Reference Range Interpretation Comments WBC (test code = 13.38 See_Comment H [Automated 4157-2) message] The sy stem which generated this result transmitted reference range : 4.20 - 10.70 10*3/?L. The reference range was not used to interpret this result as normal/abnormal . RBC (test code = 3.13 See_Comment L [Automated 789-8) message] The sy stem which generated this result transmitted reference range : 4.26 - 5.52 10*6/?L. The reference range was not used to interpret this result as normal/abnormal . HGB (test code = 8.2 g/dL 12.2-16.4 L 718-7) HCT (test code = 27.1 % 38.4-49.3 L 4544-3) MCV (test code = 86.6 fL 81.7-95.6 787-2) MCH (test code = 26.2 pg 26.1-32.7 785-6) MCHC (test code = 30.3 g/dL 31.2-35.0 L 786-4) RDW-SD (test code = 56.4 fL 38.5-51.6 H 53684-0) RDW-CV (test code = 17.8 % 12.1-15.4 H 788-0) PLT (test code = 431 See_Comment H [Automated 777-3) message] The sy stem which generated this result transmitted reference range : 150 - 328 10*3/ ?L. The reference r stevan was not used to interpret this result as normal/abnormal . MPV (test code = 9.4 fL 9.8-13.0 L 07850-8) NRBC/100 WBC (test 0.0 See_Comment [Automat ed code = 6174852917) message] The system which generated this result transmitted reference range : 0.0 - 10.0 /100 WBCs. The refer ence range was not u sed to interpret th is result as normal/abnormal . NRBC x10^3 (test code See_Comment [Auto mated = 8126709531) message] The s ystem which generated this result transmitted reference range : 10*3/?L. The reference range was not used to interpret this result as normal/abnormal . GRAN MAT (NEUT) % 53.1 % (test code = 770-8) IMM GRAN % (test code 0.40 % = 4908432493) LYMPH % (test code = 29.4 % 736-9) MONO % (test code = 7.6 % 5905-5) EOS % (test code = 8.3 % 713-8) BASO % (test code = 1.2 % 706-2) GRAN MAT x10^3(ANC) 7.10 10*3/uL 1.99-6.95 H (test code = 4411545857) IMM GRAN x10^3 (test 0.05 10*3/uL 0.00-0.06 code = 6582715493) LYMPH x10^3 (test code 3.94 10*3/uL 1.09-3.23 H = 731-0) MONO x10^3 (test code 1.02 10*3/uL 0.36-1.02 = 742-7) EOS x10^3 (test code = 1.11 10*3/uL 0.06-0.53 H 711-2) BASO x10^3 (test code 0.16 10*3/uL 0.01-0.09 H = 704-7) Lab Interpretation Abnormal (test code = 77526-9) [facility] GLUCOSE (AUTOMATED)2022-09-03 10:45:37 Test Item Value Reference Range Interpretation Comments POCT GLU (test code = 3672713305) 150 mg/dL 70-110 H Lab Interpretation (test code = Abnormal 62162-9) [facility] GLUCOSE (AUTOMATED)2022-09-03 06:44:39 Test Item Value Reference Range Interpretation Comments POCT GLU (test code = 4972345840) 201 mg/dL 70-110 H Lab Interpretation (test code = Abnormal 73990-8) [facility] GLUCOSE (AUTOMATED)2022-09-03 03:20:07 Test Item Value Reference Range Interpretation Comments POCT GLU (test code = 3472974464) 218 mg/dL 70-110 H Lab Interpretation (test code = Abnormal 04874-1) [facility] GLUCOSE (AUTOMATED)2022-09-02 22:28:07 Test Item Value Reference Range Interpretation Comments POCT GLU (test code = 9696954215) 177 mg/dL 70-110 H Lab Interpretation (test code = Abnormal 60704-5) [facility] GLUCOSE (AUTOMATED)2022-09-02 17:49:09 Test Item Value Reference Range Interpretation Comments POCT GLU (test code = 0380634228) 187 mg/dL 70-110 H Lab Interpretation (test code = Abnormal 55156-6) [facility] GLUCOSE (AUTOMATED)2022-09-02 17:43:00 Test Item Value Reference Range Interpretation Comments POCT GLU (test code = 0959372695) 84 mg/dL 70-110 Lab Interpretation (test code = Normal 52670-0) [facility] GLUCOSE (AUTOMATED)2022-09-02 10:35:08 Test Item Value Reference Range Interpretation Comments POCT GLU (test code = 5945585693) 121 mg/dL 70-110 H Lab Interpretation (test code = Abnormal 69891-5) [facility] GLUCOSE (AUTOMATED)2022-09-02 06:19:54 Test Item Value Reference Range Interpretation Comments POCT GLU (test code = 3979466868) 194 mg/dL 70-110 H Lab Interpretation (test code = Abnormal 91428-5) [facility] GLUCOSE (AUTOMATED)2022-09-02 02:46:46 Test Item Value Reference Range Interpretation Comments POCT GLU (test code = 0405966365) 178 mg/dL 70-110 H Lab Interpretation (test code = Abnormal 01361-1) [facility] GLUCOSE (AUTOMATED)2022-09-01 22:22:01 Test Item Value Reference Range Interpretation Comments POCT GLU (test code = 0447111364) 197 mg/dL 70-110 H Lab Interpretation (test code = Abnormal 71374-7) [facility] GLUCOSE (AUTOMATED)2022-09-01 17:59:08 Test Item Value Reference Range Interpretation Comments POCT GLU (test code = 0412668498) 155 mg/dL 70-110 H Lab Interpretation (test code = Abnormal 84865-5) [facility] GLUCOSE (AUTOMATED)2022-09-01 14:13:23 Test Item Value Reference Range Interpretation Comments POCT GLU (test code = 2285649431) 104 mg/dL 70-110 Lab Interpretation (test code = Normal 77164-1) [facility] GLUCOSE (AUTOMATED)2022-09-01 11:21:26 Test Item Value Reference Range Interpretation Comments POCT GLU (test code = 4643399843) 212 mg/dL 70-110 H Lab Interpretation (test code = Abnormal 73098-1) [facility] GLUCOSE (AUTOMATED)2022-09-01 06:34:33 Test Item Value Reference Range Interpretation Comments POCT GLU (test code = 8266657244) 197 mg/dL 70-110 H Lab Interpretation (test code = Abnormal 33687-7) [facility] GLUCOSE (AUTOMATED)2022-09-01 06:03:32 Test Item Value Reference Range Interpretation Comments POCT GLU (test code = 4481370905) 171 mg/dL 70-110 H Lab Interpretation (test code = Abnormal 84394-9) [facility] GLUCOSE (AUTOMATED)2022-08-31 22:38:25 Test Item Value Reference Range Interpretation Comments POCT GLU (test code = 5410851270) 245 mg/dL 70-110 H Lab Interpretation (test code = Abnormal 86144-9) [facility] GLUCOSE (AUTOMATED)2022-08-31 17:19:15 Test Item Value Reference Range Interpretation Comments POCT GLU (test code = 9008031921) 156 mg/dL 70-110 H Lab Interpretation (test code = Abnormal 95044-1) [facility] GLUCOSE (AUTOMATED)2022-08-31 13:40:26 Test Item Value Reference Range Interpretation Comments POCT GLU (test code = 2428239504) 72 mg/dL 70-110 Lab Interpretation (test code = Normal 89192-3) [facility] GLUCOSE (AUTOMATED)2022-08-31 10:26:09 Test Item Value Reference Range Interpretation Comments POCT GLU (test code = 3335370867) 245 mg/dL 70-110 H Lab Interpretation (test code = Abnormal 02349-5) [facility] GLUCOSE (AUTOMATED)2022-08-31 06:58:27 Test Item Value Reference Range Interpretation Comments POCT GLU (test code = 6194278786) 269 mg/dL 70-110 H Lab Interpretation (test code = Abnormal 43453-1) [facility] GLUCOSE (AUTOMATED)2022-08-31 03:45:43 Test Item Value Reference Range Interpretation Comments POCT GLU (test code = 5327680876) 200 mg/dL 70-110 H Lab Interpretation (test code = Abnormal 85926-3) [facility] GLUCOSE (AUTOMATED)2022-08-31 01:01:18 Test Item Value Reference Range Interpretation Comments POCT GLU (test code = 6381456780) 122 mg/dL 70-110 H Lab Interpretation (test code = Abnormal 87593-2[facility] 22:49:30 Test Item Value Reference Range Interpretation Comments POCT GLU (test code = 1792598319) 156 mg/dL 70-110 H Lab Interpretation (test code = Abnormal 68577-3) [facility] GLUCOSE (AUTOMATED)2022-08-30 18:48:21 Test Item Value Reference Range Interpretation Comments POCT GLU (test code = 0463223240) 224 mg/dL 70-110 H Lab Interpretation (test code = Abnormal 01228-2) [facility] GLUCOSE (AUTOMATED)2022-08-30 18:04:55 Test Item Value Reference Range Interpretation Comments POCT GLU (test code = 3982393285) 147 mg/dL 70-110 H Lab Interpretation (test code = Abnormal 67869-3) [facility] GLUCOSE (AUTOMATED)2022-08-30 10:55:26 Test Item Value Reference Range Interpretation Comments POCT GLU (test code = 0643511197) 204 mg/dL 70-110 H Lab Interpretation (test code = Abnormal 15491-9) [facility] GLUCOSE (AUTOMATED)2022-08-30 06:10:02 Test Item Value Reference Range Interpretation Comments POCT GLU (test code = 1696341210) 159 mg/dL 70-110 H Lab Interpretation (test code = Abnormal 72298-2) [facility] GLUCOSE (AUTOMATED)2022-08-30 04:06:46 Test Item Value Reference Range Interpretation Comments POCT GLU (test code = 3006592564) 201 mg/dL 70-110 H Lab Interpretation (test code = Abnormal 38269-3) [facility] 01:44:19 Test Item Value Reference Range Interpretation Comments POCT GLU (test code = 9715624465) 120 mg/dL 70-110 H Lab Interpretation (test code = Abnormal 67419-2) [facility] GLUCOSE (AUTOMATED)2022-08-30 01:44:19 Test Item Value Reference Range Interpretation Comments POCT GLU (test code = 9858562370) 177 mg/dL 70-110 H Lab Interpretation (test code = Abnormal 32172-0) [facility] 17:40:15 Test Item Value Reference Range Interpretation Comments POCT GLU (test code = 8444394356) 154 mg/dL 70-110 H Lab Interpretation (test code = Abnormal 04325-3) [facility] GLUCOSE (AUTOMATED)2022-08-29 10:20:47 Test Item Value Reference Range Interpretation Comments POCT GLU (test code = 2329144257) 173 mg/dL 70-110 H Lab Interpretation (test code = Abnormal 68269-5) [facility] GLUCOSE (AUTOMATED)2022-08-29 05:45:50 Test Item Value Reference Range Interpretation Comments POCT GLU (test code = 1964203070) 178 mg/dL 70-110 H Lab Interpretation (test code = Abnormal 95630-4) [facility] GLUCOSE (AUTOMATED)2022-08-29 02:33:48 Test Item Value Reference Range Interpretation Comments POCT GLU (test code = 0766918826) 126 mg/dL 70-110 H Lab Interpretation (test code = Abnormal 67439-0) [facility] GLUCOSE (AUTOMATED)2022-08-28 22:55:58 Test Item Value Reference Range Interpretation Comments POCT GLU (test code = 3725207666) 103 mg/dL 70-110 Lab Interpretation (test code = Normal 07445-0) [facility] GLUCOSE (AUTOMATED)2022-08-28 17:50:34 Test Item Value Reference Range Interpretation Comments POCT GLU (test code = 3159284264) 218 mg/dL 70-110 H Lab Interpretation (test code = Abnormal 49904-0) [facility] GLUCOSE (AUTOMATED)2022-08-28 14:10:32 Test Item Value Reference Range Interpretation Comments POCT GLU (test code = 5979308978) 160 mg/dL 70-110 H Lab Interpretation (test code = Abnormal 93823-7) [facility] GLUCOSE (AUTOMATED)2022-08-28 09:59:03 Test Item Value Reference Range Interpretation Comments POCT GLU (test code = 8217780890) 180 mg/dL 70-110 H Lab Interpretation (test code = Abnormal 57934-0) [facility] 06:12:53 Test Item Value Reference Range Interpretation Comments POCT GLU (test code = 8421422458) 146 mg/dL 70-110 H Lab Interpretation (test code = Abnormal 48683-3) [facility] GLUCOSE (AUTOMATED)2022-08-28 04:01:07 Test Item Value Reference Range Interpretation Comments POCT GLU (test code = 9153154952) 161 mg/dL 70-110 H Lab Interpretation (test code = Abnormal 86423-8) [facility] GLUCOSE (AUTOMATED)2022-08-28 02:49:14 Test Item Value Reference Range Interpretation Comments POCT GLU (test code = 8627344336) 69 mg/dL 70-110 L Lab Interpretation (test code = Abnormal 85224-5) [facility] GLUCOSE (AUTOMATED)2022-08-27 23:02:45 Test Item Value Reference Range Interpretation Comments POCT GLU (test code = 8194073409) 105 mg/dL 70-110 Lab Interpretation (test code = Normal 26385-9) [facility] 23:02:40 Test Item Value Reference Range Interpretation Comments POCT GLU (test code = 4399320847) 37 mg/dL 70-110 LL Lab Interpretation (test code = Abnormal 34805-4) [facility] GLUCOSE (AUTOMATED)2022-08-27 23:02:39 Test Item Value Reference Range Interpretation Comments POCT GLU (test code = 0315500396) 36 mg/dL 70-110 LL Lab Interpretation (test code = Abnormal 70044-6) [facility]-27 18:07:31 Test Item Value Reference Range Interpretation Comments POCT GLU (test code = 1583936636) 236 mg/dL 70-110 H Lab Interpretation (test code = Abnormal 55206-8) [facility] 14:24:20 Test Item Value Reference Range Interpretation Comments POCT GLU (test code = 4051687929) 101 mg/dL 70-110 Lab Interpretation (test code = Normal 05643-1) [facility] GLUCOSE (AUTOMATED)2022-08-27 12:12:50 Test Item Value Reference Range Interpretation Comments POCT GLU (test code = 6035496432) 78 mg/dL 70-110 Lab Interpretation (test code = Normal 75377-1) [facility] GLUCOSE (AUTOMATED)2022-08-27 10:16:52 Test Item Value Reference Range Interpretation Comments POCT GLU (test code = 9793042619) 66 mg/dL 70-110 L Lab Interpretation (test code = Abnormal 04133-5) [facility] GLUCOSE (AUTOMATED)2022-08-27 06:52:48 Test Item Value Reference Range Interpretation Comments POCT GLU (test code = 1105308854) 119 mg/dL 70-110 H Lab Interpretation (test code = Abnormal 00545-3) [facility] GLUCOSE (AUTOMATED)2022-08-27 04:07:05 Test Item Value Reference Range Interpretation Comments POCT GLU (test code = 8169025941) 111 mg/dL 70-110 H Lab Interpretation (test code = Abnormal 94480-0) [facility] GLUCOSE (AUTOMATED)2022-08-26 22:48:03 Test Item Value Reference Range Interpretation Comments POCT GLU (test code = 8632330595) 159 mg/dL 70-110 H Lab Interpretation (test code = Abnormal 09037-4) [facility] GLUCOSE (AUTOMATED)2022-08-26 18:08:02 Test Item Value Reference Range Interpretation Comments POCT GLU (test code = 2318679101) 168 mg/dL 70-110 H Lab Interpretation (test code = Abnormal 21386-9) [facility] GLUCOSE (AUTOMATED)2022-08-26 15:44:30 Test Item Value Reference Range Interpretation Comments POCT GLU (test code = 5309909523) 145 mg/dL 70-110 H Lab Interpretation (test code = Abnormal 78337-2) [facility] GLUCOSE (AUTOMATED)2022-08-26 14:14:29 Test Item Value Reference Range Interpretation Comments POCT GLU (test code = 8954109908) 153 mg/dL 70-110 H Lab Interpretation (test code = Abnormal 17921-7) [facility] GLUCOSE (AUTOMATED)2022-08-26 14:14:28 Test Item Value Reference Range Interpretation Comments POCT GLU (test code = 8482889415) 111 mg/dL 70-110 H Lab Interpretation (test code = Abnormal 94839-1) [facility] GLUCOSE (AUTOMATED)2022-08-26 10:44:36 Test Item Value Reference Range Interpretation Comments POCT GLU (test code = 4110320385) 88 mg/dL 70-110 Lab Interpretation (test code = Normal 61168-1) [facility] GLUCOSE (AUTOMATED)2022-08-26 06:09:21 Test Item Value Reference Range Interpretation Comments POCT GLU (test code = 1468858826) 122 mg/dL 70-110 H Lab Interpretation (test code = Abnormal 86632-0) [facility] GLUCOSE (AUTOMATED)2022-08-26 04:26:31 Test Item Value Reference Range Interpretation Comments POCT GLU (test code = 3060383467) 161 mg/dL 70-110 H Lab Interpretation (test code = Abnormal 36828-5) [facility] GLUCOSE (AUTOMATED)2022-08-25 20:53:42 Test Item Value Reference Range Interpretation Comments POCT GLU (test code = 6320460415) 173 mg/dL 70-110 H Lab Interpretation (test code = Abnormal 32029-9) [facility] GLUCOSE (AUTOMATED)2022-08-25 15:30:32 Test Item Value Reference Range Interpretation Comments POCT GLU (test code = 0457519730) 122 mg/dL 70-110 H Lab Interpretation (test code = Abnormal 10680-1) [facility] GLUCOSE (AUTOMATED)2022-08-25 10:22:45 Test Item Value Reference Range Interpretation Comments POCT GLU (test code = 0672360891) 195 mg/dL 70-110 H Lab Interpretation (test code = Abnormal 28710-4) [facility] GLUCOSE (AUTOMATED)2022-08-25 06:58:35 Test Item Value Reference Range Interpretation Comments POCT GLU (test code = 0834026540) 223 mg/dL 70-110 H Lab Interpretation (test code = Abnormal 98074-0) [facility] GLUCOSE (AUTOMATED)2022-08-25 03:14:49 Test Item Value Reference Range Interpretation Comments POCT GLU (test code = 3061010983) 223 mg/dL 70-110 H Lab Interpretation (test code = Abnormal 04768-5) [facility] GLUCOSE (AUTOMATED)2022-08-24 22:06:26 Test Item Value Reference Range Interpretation Comments POCT GLU (test code = 7964705873) 143 mg/dL 70-110 H Lab Interpretation (test code = Abnormal 34822-4) [facility] GLUCOSE (AUTOMATED)2022-08-24 19:05:16 Test Item Value Reference Range Interpretation Comments POCT GLU (test code = 7383316618) 128 mg/dL 70-110 H Lab Interpretation (test code = Abnormal 66193-9) [facility] GLUCOSE (AUTOMATED)2022-08-24 14:33:31 Test Item Value Reference Range Interpretation Comments POCT GLU (test code = 8107111483) 218 mg/dL 70-110 H Lab Interpretation (test code = Abnormal 52375-0) [facility] GLUCOSE (AUTOMATED)2022-08-24 11:03:57 Test Item Value Reference Range Interpretation Comments POCT GLU (test code = 9408538010) 88 mg/dL 70-110 Lab Interpretation (test code = Normal 59374-3) [facility] GLUCOSE (AUTOMATED)2022-08-24 05:51:01 Test Item Value Reference Range Interpretation Comments POCT GLU (test code = 3501214234) 221 mg/dL 70-110 H Lab Interpretation (test code = Abnormal 24012-6) [facility] GLUCOSE (AUTOMATED)2022-08-24 05:28:33 Test Item Value Reference Range Interpretation Comments POCT GLU (test code = 1664647526) 160 mg/dL 70-110 H Lab Interpretation (test code = Abnormal 03721-5) [facility] GLUCOSE (AUTOMATED)2022-08-23 22:42:08 Test Item Value Reference Range Interpretation Comments POCT GLU (test code = 5456646529) 256 mg/dL 70-110 H Lab Interpretation (test code = Abnormal 49369-9) [facility] GLUCOSE (AUTOMATED)2022-08-23 18:01:27 Test Item Value Reference Range Interpretation Comments POCT GLU (test code = 5344750369) 271 mg/dL 70-110 H Lab Interpretation (test code = Abnormal 92070-6) [facility] GLUCOSE (AUTOMATED)2022-08-23 14:20:52 Test Item Value Reference Range Interpretation Comments POCT GLU (test code = 7341372062) 193 mg/dL 70-110 H Lab Interpretation (test code = Abnormal 18167-7) [facility] GLUCOSE (AUTOMATED)2022-08-23 12:10:49 Test Item Value Reference Range Interpretation Comments POCT GLU (test code = 8928162517) 85 mg/dL 70-110 Lab Interpretation (test code = Normal 83142-9) [facility] GLUCOSE (AUTOMATED)2022-08-23 05:40:56 Test Item Value Reference Range Interpretation Comments POCT GLU (test code = 8940590006) 262 mg/dL 70-110 H Lab Interpretation (test code = Abnormal 02980-2) [facility] GLUCOSE (AUTOMATED)2022-08-23 03:10:00 Test Item Value Reference Range Interpretation Comments POCT GLU (test code = 4682439705) 259 mg/dL 70-110 H Lab Interpretation (test code = Abnormal 94316-2) [facility] GLUCOSE (AUTOMATED)2022-08-23 00:17:04 Test Item Value Reference Range Interpretation Comments POCT GLU (test code = 0465613331) 262 mg/dL 70-110 H Lab Interpretation (test code = Abnormal 65791-7) [facility] RBC (in units), 1 Units 2022-08-22 22:19:39 Test Item Value Reference Range Interpretation Comments Cross Match Result Compatible (test code = 4409) ISBT Blood Type Code 9500 (test code = 211789) Unit Blood Type (test O Neg code = 4410) Unit Number (test [id number] code = 4411) Blood Expiration Date & Time (test code = 318301) Status Information Issued (test code = 4412) Product Red Blood Cells Identification (test code = 4413) Product Code (test [id number] Performed at [facility] code = 4414) Laboratory Services - [facility] [address] [place] [id number] Free: [phone] A No. [id number] [facility] Confirmation (Lab Only)2022-08-22 21:25:44 Test Item Value Reference Range Interpretation Comments ABO & RH (test code O Negative Performe d at [facility] = 20) Laboratory Serv [facility] Blood Bank[address] [place] [address] Free: [phone] A No. [id number] [facility] and Screen - ONCE [id number] 20:56:57 Test Item Value Reference Range Interpretation Comments ABO & RH (test code O Negative Performe d at [facility] = 20) Laboratory [facility] Blood [address] [place], [place] [address]Toll Free: [phone] A No. [id number] IAT (test code = Negative Performed a t [facility] 1185) Laboratory [facility] Blood [place] [address]Toll Free: [phone] A No. [id number] [facility] [id number] 18:21:16 Test Item Value Reference Range Interpretation Comments IRON (test code = 2866752225) 32 ug/dL 50-160 L TIBC (test code = 9931336226) 267 ug/dL 250-410 % FE SAT (test code = 0359792532) 12 % 20-50 L Lab Interpretation (test code = Abnormal 10326-0) [facility] GLUCOSE (AUTOMATED)2022-08-22 17:53:50 Test Item Value Reference Range Interpretation Comments POCT GLU (test code = 9923515280) 220 mg/dL 70-110 H Lab Interpretation (test code = Abnormal 20142-7) [facility] GLUCOSE (AUTOMATED)2022-08-22 14:00:23 Test Item Value Reference Range Interpretation Comments POCT GLU (test code = 8176825887) 95 mg/dL 70-110 Lab Interpretation (test code = Normal 22051-9) [facility] WITH [id number] 10:37:59 Test Item Value Reference Range Interpretation Comments WBC (test code = 12.63 See_Comment H [Automated 6690-2) message] The sy stem which generated this result transmitted reference range : 4.20 - 10.70 10*3/?L. The reference range was not used to interpret this result as normal/abnormal . RBC (test code = 2.57 See_Comment L [Automated 789-8) message] The sy stem which generated this result transmitted reference range : 4.26 - 5.52 10*6/?L. The reference range was not used to interpret this result as normal/abnormal . HGB (test code = 6.4 g/dL 12.2-16.4 L 718-7) HCT (test code = 21.6 % 38.4-49.3 L 4544-3) MCV (test code = 84.0 fL 81.7-95.6 787-2) MCH (test code = 24.9 pg 26.1-32.7 L 785-6) MCHC (test code = 29.6 g/dL 31.2-35.0 L 786-4) RDW-SD (test code = 48.8 fL 38.5-51.6 25769-7) RDW-CV (test code = 16.0 % 12.1-15.4 H 788-0) PLT (test code = 381 See_Comment H [Automated 777-3) message] The sy stem which generated this result transmitted reference range : 150 - 328 10*3/ ?L. The reference r stevan was not used to interpret this result as normal/abnormal . MPV (test code = 10.5 fL 9.8-13.0 46181-0) NRBC/100 WBC (test 0.0 See_Comment [Automat ed code = 7420217549) message] The system which generated this result transmitted reference range : 0.0 - 10.0 /100 WBCs. The refer ence range was not u sed to interpret th is result as normal/abnormal . NRBC x10^3 (test code See_Comment [Auto mated = 7815944171) message] The s ystem which generated this result transmitted reference range : 10*3/?L. The reference range was not used to interpret this result as normal/abnormal . GRAN MAT (NEUT) % 58.1 % (test code = 770-8) IMM GRAN % (test code 0.70 % = 3774543525) LYMPH % (test code = 19.9 % 736-9) MONO % (test code = 10.0 % 5905-5) EOS % (test code = 11.0 % 713-8) BASO % (test code = 0.3 % 706-2) GRAN MAT x10^3(ANC) 7.34 10*3/uL 1.99-6.95 H (test code = 5341909775) IMM GRAN x10^3 (test 0.09 10*3/uL 0.00-0.06 H code = 2367824412) LYMPH x10^3 (test code 2.51 10*3/uL 1.09-3.23 = 731-0) MONO x10^3 (test code 1.26 10*3/uL 0.36-1.02 H = 742-7) EOS x10^3 (test code = 1.39 10*3/uL 0.06-0.53 H 711-2) BASO x10^3 (test code 0.04 10*3/uL 0.01-0.09 = 704-7) Lab Interpretation Abnormal (test code = 44770-6) [facility] GLUCOSE (AUTOMATED)2022-08-22 10:01:25 Test Item Value Reference Range Interpretation Comments POCT GLU (test code = 8047014695) 80 mg/dL 70-110 Lab Interpretation (test code = Normal 49942-3) [facility] GLUCOSE (AUTOMATED)2022-08-22 04:04:15 Test Item Value Reference Range Interpretation Comments POCT GLU (test code = 8547620446) 146 mg/dL 70-110 H Lab Interpretation (test code = Abnormal 70142-3) [facility] GLUCOSE (AUTOMATED)2022-08-22 02:43:56 Test Item Value Reference Range Interpretation Comments POCT GLU (test code = 2173995360) 199 mg/dL 70-110 H Lab Interpretation (test code = Abnormal 42372-3) [facility] METABOLIC PANEL (NA, K, CL, CO2, GLUCOSE, BUN, CREATININE, CA)2022-08-21 18:47:34 Test Item Value Reference Range Interpretation Comments NA (test code = 139 mmol/L 135-145 2128482375) K (test code = 3.8 mmol/L 3.5-5.0 7208272754) CL (test code = 103 mmol/L 98-108 8834499567) CO2 TOTAL (test code = 26 mmol/L 23-31 3336509519) AGAP (test code = 10 2-16 1256028388) BUN (test code = 76 mg/dL 7-23 H 2328212157) GLUCOSE (test code = 145 mg/dL 70-110 H 4658590236) CREATININE (test code = 2.74 mg/dL 0.60-1.25 H 3428531652) CALCIUM (test code = 9.3 mg/dL 8.6-10.6 8631479822) eGFR (test code = 24.2 mL/min/1.73m2 9302847270) OSBALDO (test code = OSBALDO) Association of Glomerular Filtration Rate (GFR) and Staging of Kidney Disease* + --+ --+ ------+| GFR (mL/min/1.73 m2) ?| With Kidney Damage ?| ?Without Kidney Damage+ --------+ --------+ +| ?>90 ?| ?Stage one ?| ? Normal ?+ ---+ ---+ -------+| ?60-89 ?| ?Stage two ?| ? Decreased GFR ? + --+ --+ ------+| ?30-59 ?| ?Stage three ?| ? Stage three ? + --+ --+ ------+| ?15-29 ?| ?Stage four ? | ? Stage four ?+ ---+ ---+ -------+| ?<15 (or dialysis) ? ?| ?Stage five ? | ? Stage five ?+ ---+ ---+ -------+ *Each stage assumes the associated GFR level has been in effect for at least three months. ?Stages 1 to 5, with or without kidney disease, indicate chronic kidney disease. Notes: Determination of stages one and two (with eGFR >59mL/min/1.73 m2) requires estimation of kidney damage for at least three months as defined by structural or functional abnormalities of the kidney, manifested by either:Pathological abnormalities or Markers of kidney damage (including abnormalities in the composition of the blood or urine or abnormalities in imaging tests). Lab Interpretation Abnormal (test code = 32409-9) [facility] 18:07:51 Test Item Value Reference Range Interpretation Comments POCT GLU (test code = 9517136440) 154 mg/dL 70-110 H Lab Interpretation (test code = Abnormal 59276-0) [facility] 16:20:06 Test Item Value Reference Range Interpretation Comments POCT GLU (test code = 4260410447) 165 mg/dL 70-110 H Lab Interpretation (test code = Abnormal 78121-8) [facility] Culture - Peripheral # [id number] 15:01:52 Test Item Value Reference Range Interpretation Comments Blood Culture-Aerobic No organisms No growth Previo us (test code = 23926-9) isolated prelim inary verified result was Culture In Progress on 08/16/2022 at 12 CSTPrevious preliminary verified result was No growth a t 24 hours on 08/17/2022 at 09 01 CSTPrevious preliminary verified result was No growth a t 48 hours on 08/18/2022 at 09 01 CSTPrevious preliminary verified result was No growth a t 72 hours on 08/19/2022 at 09 01 SELF PAY REPRESENTATIVE Blood No organisms No growth Previous Culture-Anaerobic isolated preliminar y (test code = 97435-6) verifi ed result was Culture In Progress on 08/16/2022 at 12 01 CSTPrevious preliminary verified result was No growth a t 24 hours on 08/17/2022 at 09 01 CSTPrevious preliminary verified result was No growth a t 48 hours on 08/18/2022 at 09 01 CSTPrevious preliminary verified result was No growth a t 72 hours on 08/19/2022 at 09 01 SELF PAY REPRESENTATIVE Lab Interpretation Normal (test code = 00662-8) [facility] Culture - Peripheral # [id number] 15:01:52 Test Item Value Reference Range Interpretation Comments Blood Culture-Aerobic No organisms No growth Previo us (test code = 51155-8) isolated prelim inary verified result was Culture In Progress on 08/16/2022 at 12 01 CSTPrevious preliminary verified result was No growth a t 24 hours on 08/17/2022 at 09 01 CSTPrevious preliminary verified result was No growth a t 48 hours on 08/18/2022 at 09 01 CSTPrevious preliminary verified result was No growth a t 72 hours on 08/19/2022 at 09 01 SELF PAY REPRESENTATIVE Blood No organisms No growth Previous Culture-Anaerobic isolated preliminar y (test code = 29059-9) verifi ed result was Culture In Progress on 08/16/2022 at 12 01 CSTPrevious preliminary verified result was No growth a t 24 hours on 08/17/2022 at 09 01 CSTPrevious preliminary verified result was No growth a t 48 hours on 08/18/2022 at 09 01 CSTPrevious preliminary verified result was No growth a t 72 hours on 08/19/2022 at 09 01 SELF PAY REPRESENTATIVE Lab Interpretation Normal (test code = 01281-0) [facility] GLUCOSE (AUTOMATED)2022-08-21 14:00:12 Test Item Value Reference Range Interpretation Comments POCT GLU (test code = 2186426305) 60 mg/dL 70-110 L Lab Interpretation (test code = Abnormal 40328-8) [facility] GLUCOSE (AUTOMATED)2022-08-21 11:06:50 Test Item Value Reference Range Interpretation Comments POCT GLU (test code = 2603946672) 73 mg/dL 70-110 Lab Interpretation (test code = Normal 43743-1) [facility] GLUCOSE (AUTOMATED)2022-08-21 06:40:47 Test Item Value Reference Range Interpretation Comments POCT GLU (test code = 8048725559) 142 mg/dL 70-110 H Lab Interpretation (test code = Abnormal 24006-3) [facility] GLUCOSE (AUTOMATED)2022-08-21 05:01:02 Test Item Value Reference Range Interpretation Comments POCT GLU (test code = 8757028981) 156 mg/dL 70-110 H Lab Interpretation (test code = Abnormal 51581-2) [facility] GLUCOSE (AUTOMATED)2022-08-21 02:36:10 Test Item Value Reference Range Interpretation Comments POCT GLU (test code = 8552874537) 287 mg/dL 70-110 H Lab Interpretation (test code = Abnormal 55740-8) [facility] GLUCOSE (AUTOMATED)2022-08-21 02:16:45 Test Item Value Reference Range Interpretation Comments POCT GLU (test code = 6025296632) 242 mg/dL 70-110 H Lab Interpretation (test code = Abnormal 07940-3) [facility] GLUCOSE (AUTOMATED)2022-08-20 19:19:45 Test Item Value Reference Range Interpretation Comments POCT GLU (test code = 9276067674) 238 mg/dL 70-110 H Lab Interpretation (test code = Abnormal 66973-9) [facility] GLUCOSE (AUTOMATED)2022-08-20 15:58:44 Test Item Value Reference Range Interpretation Comments POCT GLU (test code = 9624234750) 134 mg/dL 70-110 H Lab Interpretation (test code = Abnormal 70494-5) [facility] GLUCOSE (AUTOMATED)2022-08-20 11:43:18 Test Item Value Reference Range Interpretation Comments POCT GLU (test code = 1671441210) 177 mg/dL 70-110 H Lab Interpretation (test code = Abnormal 09440-5) [facility] GLUCOSE (AUTOMATED)2022-08-20 08:20:12 Test Item Value Reference Range Interpretation Comments POCT GLU (test code = 8284140546) 188 mg/dL 70-110 H Lab Interpretation (test code = Abnormal 69945-4) [facility] GLUCOSE (AUTOMATED)2022-08-20 02:34:51 Test Item Value Reference Range Interpretation Comments POCT GLU (test code = 9979584674) 132 mg/dL 70-110 H Lab Interpretation (test code = Abnormal 42857-6) [facility] GLUCOSE (AUTOMATED)2022-08-20 02:34:45 Test Item Value Reference Range Interpretation Comments POCT GLU (test code = 3030806869) 194 mg/dL 70-110 H Lab Interpretation (test code = Abnormal 60257-9) [facility] GLUCOSE (AUTOMATED)2022-08-19 18:10:32 Test Item Value Reference Range Interpretation Comments POCT GLU (test code = 3807512050) 253 mg/dL 70-110 H Lab Interpretation (test code = Abnormal 69639-2) [facility] GLUCOSE (AUTOMATED)2022-08-19 13:56:52 Test Item Value Reference Range Interpretation Comments POCT GLU (test code = 3958565398) 173 mg/dL 70-110 H Lab Interpretation (test code = Abnormal 19194-6) [facility] METABOLIC PANEL (NA, K, CL, CO2, GLUCOSE, BUN, CREATININE, CA)2022-08-19 13:14:50 Test Item Value Reference Range Interpretation Comments NA (test code = 137 mmol/L 135-145 2084119893) K (test code = 4.1 mmol/L 3.5-5.0 2995893818) CL (test code = 104 mmol/L 98-108 5073462626) CO2 TOTAL (test code = 28 mmol/L 23-31 1420882344) AGAP (test code = 5 2-16 0371160330) BUN (test code = 84 mg/dL 7-23 H 4356538093) GLUCOSE (test code = 156 mg/dL 70-110 H 7016388741) CREATININE (test code = 2.64 mg/dL 0.60-1.25 H 0480621366) CALCIUM (test code = 8.3 mg/dL 8.6-10.6 L 7044464865) eGFR (test code = 25.3 mL/min/1.73m2 1708440330) OSBALDO (test code = OSBALDO) Association of Glomerular Filtration Rate (GFR) and Staging of Kidney Disease* + --+ --+ ------+| GFR (mL/min/1.73 m2) ?| With Kidney Damage ?| ?Without Kidney Damage+ --------+ --------+ +| ?>90 ?| ?Stage one ?| ? Normal ?+ ---+ ---+ -------+| ?60-89 ?| ?Stage two ?| ? Decreased GFR ? + --+ --+ ------+| ?30-59 ?| ?Stage three ?| ? Stage three ? + --+ --+ ------+| ?15-29 ?| ?Stage four ? | ? Stage four ?+ ---+ ---+ -------+| ?<15 (or dialysis) ? ?| ?Stage five ? | ? Stage five ?+ ---+ ---+ -------+ *Each stage assumes the associated GFR level has been in effect for at least three months. ?Stages 1 to 5, with or without kidney disease, indicate chronic kidney disease. Notes: Determination of stages one and two (with eGFR >59mL/min/1.73 m2) requires estimation of kidney damage for at least three months as defined by structural or functional abnormalities of the kidney, manifested by either:Pathological abnormalities or Markers of kidney damage (including abnormalities in the composition of the blood or urine or abnormalities in imaging tests). Lab Interpretation Abnormal (test code = 62994-6) [facility] WITH [id number] 12:02:01 Test Item Value Reference Range Interpretation Comments WBC (test code = 17.97 See_Comment H [Automated 6690-2) message] The system which generated this result transmit mendoza reference range : 4.20 - 10.70 10*3/?L. The reference range was not used to interpret this result as normal/abnormal . RBC (test code = 2.76 See_Comment L [Automated 789-8) message] The system which generated this result transmit mendoza reference range : 4.26 - 5.52 10*6/?L. The reference range was not used to interpret this result as normal/abnormal . HGB (test code = 6.9 g/dL 12.2-16.4 L 718-7) HCT (test code = 23.2 % 38.4-49.3 L 4544-3) MCV (test code = 84.1 fL 81.7-95.6 787-2) MCH (test code = 25.0 pg 26.1-32.7 L 785-6) MCHC (test code = 29.7 g/dL 31.2-35.0 L 786-4) RDW-SD (test code = 46.6 fL 38.5-51.6 88066-8) RDW-CV (test code = 15.5 % 12.1-15.4 H 788-0) PLT (test code = 389 See_Comment H [Automated 777-3) message] The system which generated this result transmit mendoza reference range : 150 - 328 10*3/ ?L. The reference range was not u sed to interpret th is result as normal/abnormal . MPV (test code = 10.7 fL 9.8-13.0 33466-4) NRBC/100 WBC (test 0.0 See_Comment [Automat ed code = 9883793345) message] The system which generated this result transmit mendoza reference range : 0.0 - 10.0 /100 WBCs. The reference range was not used to interpret this result as normal/abnormal . NRBC x10^3 (test code See_Comment [Auto mated = 6075356726) message] The system which generated this result transmit mendoza reference range : 10*3/?L. The reference range was not used to interpret this result as normal/abnormal . GRAN MAT (NEUT) % 72.6 % (test code = 770-8) IMM GRAN % (test code 0.60 % = 8194630327) LYMPH % (test code = 15.1 % 736-9) MONO % (test code = 6.3 % 5905-5) EOS % (test code = 5.0 % 713-8) BASO % (test code = 0.4 % 706-2) GRAN MAT x10^3(ANC) 13.05 10*3/uL 1.99-6.95 H (test code = 7425500681) IMM GRAN x10^3 (test 0.10 10*3/uL 0.00-0.06 H code = 1861622447) LYMPH x10^3 (test code 2.71 10*3/uL 1.09-3.23 = 731-0) MONO x10^3 (test code 1.14 10*3/uL 0.36-1.02 H = 742-7) EOS x10^3 (test code = 0.90 10*3/uL 0.06-0.53 H 711-2) BASO x10^3 (test code 0.07 10*3/uL 0.01-0.09 = 704-7) Lab Interpretation Abnormal (test code = 54860-9) [facility] GLUCOSE (AUTOMATED)2022-08-19 10:17:37 Test Item Value Reference Range Interpretation Comments POCT GLU (test code = 0091734494) 202 mg/dL 70-110 H Lab Interpretation (test code = Abnormal 04690-0) [facility] GLUCOSE (AUTOMATED)2022-08-19 06:15:49 Test Item Value Reference Range Interpretation Comments POCT GLU (test code = 1051649821) 162 mg/dL 70-110 H Lab Interpretation (test code = Abnormal 25533-6) [facility] GLUCOSE (AUTOMATED)2022-08-19 02:48:05 Test Item Value Reference Range Interpretation Comments POCT GLU (test code = 1743562977) 218 mg/dL 70-110 H Lab Interpretation (test code = Abnormal 02933-2) [facility] GLUCOSE (AUTOMATED)2022-08-18 22:28:18 Test Item Value Reference Range Interpretation Comments POCT GLU (test code = 8003305182) 238 mg/dL 70-110 H Lab Interpretation (test code = Abnormal 13905-8) [facility] [id number] 22:01:32 Test Item Value Reference Range Interpretation Comments LACTIC ACID (test code = 1.50 mmol/L 0.50-2.20 5081532729) Lab Interpretation (test code = Normal 17150-0) [facility] GLUCOSE (AUTOMATED)2022-08-18 18:03:49 Test Item Value Reference Range Interpretation Comments POCT GLU (test code = 1722572229) 346 mg/dL 70-110 H Lab Interpretation (test code = Abnormal 76301-7) [facility] GLUCOSE (AUTOMATED)2022-08-18 16:03:00 Test Item Value Reference Range Interpretation Comments POCT GLU (test code = 8876967322) 339 mg/dL 70-110 H Lab Interpretation (test code = Abnormal 18444-5) [facility] GLUCOSE (AUTOMATED)2022-08-18 10:23:13 Test Item Value Reference Range Interpretation Comments POCT GLU (test code = 5426619423) 167 mg/dL 70-110 H Lab Interpretation (test code = Abnormal 36631-2) [facility] GLUCOSE (AUTOMATED)2022-08-18 06:14:35 Test Item Value Reference Range Interpretation Comments POCT GLU (test code = 2011340505) 238 mg/dL 70-110 H Lab Interpretation (test code = Abnormal 01766-0) [facility] GLUCOSE (AUTOMATED)2022-08-18 01:51:05 Test Item Value Reference Range Interpretation Comments POCT GLU (test code = 8448619690) 388 mg/dL 70-110 H Lab Interpretation (test code = Abnormal 22182-5) [facility] (NA, K, CL, CO2, GLUCOSE, BUN, CREATININE, CA)2022-08-18 00:47:28 Test Item Value Reference Range Interpretation Comments NA (test code = 143 mmol/L 135-145 1347834832) K (test code = 4.2 mmol/L 3.5-5.0 4376762361) CL (test code = 107 mmol/L 98-108 7247704971) CO2 TOTAL (test code = 30 mmol/L 23-31 1855589887) AGAP (test code = 6 2-16 1886825729) BUN (test code = 93 mg/dL 7-23 H 0644548638) GLUCOSE (test code = 327 mg/dL 70-110 H 9993009130) CREATININE (test code = 2.55 mg/dL 0.60-1.25 H 8448807977) CALCIUM (test code = 8.8 mg/dL 8.6-10.6 9699873807) eGFR (test code = 26.3 mL/min/1.73m2 6911376389) OSBALDO (test code = OSBALDO) Association of Glomerular Filtration Rate (GFR) and Staging of Kidney Disease* + --+ --+ ------+| GFR (mL/min/1.73 m2) ?| With Kidney Damage ?| ?Without Kidney Damage+ --------+ --------+ +| ?>90 ?| ?Stage one ?| ? Normal ?+ ---+ ---+ -------+| ?60-89 ?| ?Stage two ?| ? Decreased GFR ? + --+ --+ ------+| ?30-59 ?| ?Stage three ?| ? Stage three ? + --+ --+ ------+| ?15-29 ?| ?Stage four ? | ? Stage four ?+ ---+ ---+ -------+| ?<15 (or dialysis) ? ?| ?Stage five ? | ? Stage five ?+ ---+ ---+ -------+ *Each stage assumes the associated GFR level has been in effect for at least three months. ?Stages 1 to 5, with or without kidney disease, indicate chronic kidney disease. Notes: Determination of stages one and two (with eGFR >59mL/min/1.73 m2) requires estimation of kidney damage for at least three months as defined by structural or functional abnormalities of the kidney, manifested by either:Pathological abnormalities or Markers of kidney damage (including abnormalities in the composition of the blood or urine or abnormalities in imaging tests). Lab Interpretation Abnormal (test code = 26575-9) [facility] GLUCOSE (AUTOMATED)2022-08-18 00:04:56 Test Item Value Reference Range Interpretation Comments POCT GLU (test code = 0614761565) 358 mg/dL 70-110 H Lab Interpretation (test code = Abnormal 98762-7) [facility] GLUCOSE (AUTOMATED)2022-08-17 20:52:58 Test Item Value Reference Range Interpretation Comments POCT GLU (test code = 4984997669) 319 mg/dL 70-110 H Lab Interpretation (test code = Abnormal 80089-1) [facility] GLUCOSE (AUTOMATED)2022-08-17 17:26:16 Test Item Value Reference Range Interpretation Comments POCT GLU (test code = 3315281580) 267 mg/dL 70-110 H Lab Interpretation (test code = Abnormal 07249-9) [facility] GLUCOSE (AUTOMATED)2022-08-17 17:04:33 Test Item Value Reference Range Interpretation Comments POCT GLU (test code = 5176617623) 223 mg/dL 70-110 H Lab Interpretation (test code = Abnormal 04627-0) [facility] GLUCOSE (AUTOMATED)2022-08-17 15:44:59 Test Item Value Reference Range Interpretation Comments POCT GLU (test code = 7961560728) 238 mg/dL 70-110 H Lab Interpretation (test code = Abnormal 50464-4) [facility] GLUCOSE (AUTOMATED)2022-08-17 14:16:24 Test Item Value Reference Range Interpretation Comments POCT GLU (test code = 8636854420) 276 mg/dL 70-110 H Lab Interpretation (test code = Abnormal 75918-7) [facility] GLUCOSE (AUTOMATED)2022-08-17 12:20:23 Test Item Value Reference Range Interpretation Comments POCT GLU (test code = 9313562738) 177 mg/dL 70-110 H Lab Interpretation (test code = Abnormal 45960-7) [facility] GLUCOSE (AUTOMATED)2022-08-17 06:50:49 Test Item Value Reference Range Interpretation Comments POCT GLU (test code = 453 mg/dL 70-110 HH RN NOT IFIED 4539231260) Lab Interpretation (test code = Abnormal 61975-7) [facility] GLUCOSE (AUTOMATED)2022-08-17 03:52:25 Test Item Value Reference Range Interpretation Comments POCT GLU (test code = 2541287575) 340 mg/dL 70-110 H Lab Interpretation (test code = Abnormal 39131-4) [facility]cos[facility] Hemoglobin (A1C)2022-08-16 23:29:00 Test Item Value Reference Range Interpretation Comments HGB A1C (test code = 8.0 % 4.0-5.7 H 4548-4) OSBALDO (test code = OSBALDO) Reference RangesNormal: <5.7%Prediabetes: 5.7 - 6.4%Diabetes: > 6.5% Lab Interpretation (test Abnormal code = 34187-1) [facility] (Total Cholesterol, Triglycerides, HDL) - [id number] 22:26:58 Test Item Value Reference Range Interpretation Comments CHOL (test code = 1484552454) 138 mg/dL 120-200 HDL (test code = 3411292656) 23 mg/dL >=40 L HDLC RATIO (test code = 8150192972) 6.0 <=5.0 H TRIG (test code = 9929214204) 157 mg/dL 30-170 LDL CHOL (test code = 21863-8) 84 mg/dL <=160 VLDL (test code = 4425630728) 31 mg/dL 5-60 Lab Interpretation (test code = Abnormal 20586-4) [facility]2022-08-16 22:12:59 Test Item Value Reference Range Interpretation Comments POCT GLU (test code = 4642127926) 233 mg/dL 70-110 H Lab Interpretation (test code = Abnormal 51326-7) [facility] TylerPhosphorus [id number] 19:14:26 Test Item Value Reference Range Interpretation Comments PHOSPHORUS (test code = 3643243572) 4.3 mg/dL 2.5-5.0 Lab Interpretation (test code = Normal 21772-8) [facility] METABOLIC PAN[facility] (70330)2022-08-16 14:45:23 Test Item Value Reference Range Interpretation Comments NA (test code = 152 mmol/L 135-145 H 7291335348) K (test code = 4.4 mmol/L 3.5-5.0 5381372705) CL (test code = 112 mmol/L 98-108 H 4407564392) CO2 TOTAL (test code = 30 mmol/L 23-31 7135400251) AGAP (test code = 10 2-16 0446182413) BUN (test code = 100 mg/dL 7-23 H 3863819619) GLUCOSE (test code = 186 mg/dL 70-110 H 1057498312) CREATININE (test code = 2.40 mg/dL 0.60-1.25 H 0644785139) TOTAL BILI (test code = 0.4 mg/dL 0.1-1.4 6390793046) CALCIUM (test code = 9.4 mg/dL 8.6-10.6 1064300758) T PROTEIN (test code = 7.0 g/dL 6.3-8.2 5871823792) ALBUMIN (test code = 3.5 g/dL 3.5-5.0 0993689923) ALK PHOS (test code = 101 U/L 34-122 3462826607) ALTv (test code = 29 U/L 5-50 1742-6) AST(SGOT) (test code = 25 U/L 13-40 4384764047) eGFR (test code = 28.2 mL/min/1.73m2 9586190205) OSBALDO (test code = OSBALDO) Association of Glomerular Filtration Rate (GFR) and Staging of Kidney Disease* + --+ --+ ------+| GFR (mL/min/1.73 m2) ?| With Kidney Damage ?| ?Without Kidney Damage+ --------+ --------+ +| ?>90 ?| ?Stage one ?| ? Normal ?+ ---+ ---+ -------+| ?60-89 ?| ?Stage two ?| ? Decreased GFR ? + --+ --+ ------+| ?30-59 ?| ?Stage three ?| ? Stage three ? + --+ --+ ------+| ?15-29 ?| ?Stage four ? | ? Stage four ?+ ---+ ---+ -------+| ?<15 (or dialysis) ? ?| ?Stage five ? | ? Stage five ?+ ---+ ---+ -------+ *Each stage assumes the associated GFR level has been in effect for at least three months. ?Stages 1 to 5, with or without kidney disease, indicate chronic kidney disease. Notes: Determination of stages one and two (with eGFR >59mL/min/1.73 m2) requires estimation of kidney damage for at least three months as defined by structural or functional abnormalities of the kidney, manifested by either:Pathological abnormalities or Markers of kidney damage (including abnormalities in the composition of the blood or urine or abnormalities in imaging tests). Lab Interpretation Abnormal (test code = 89203-4) [facility] WITH [id number] 14:29:24 Test Item Value Reference Range Interpretation Comments WBC (test code = 13.78 See_Comment H [Automated 6690-2) message] The sy stem which generated this result transmitted reference range : 4.20 - 10.70 10*3/?L. The reference range was not used to interpret this result as normal/abnormal . RBC (test code = 3.23 See_Comment L [Automated 789-8) message] The sy stem which generated this result transmitted reference range : 4.26 - 5.52 10*6/?L. The reference range was not used to interpret this result as normal/abnormal . HGB (test code = 8.1 g/dL 12.2-16.4 L 718-7) HCT (test code = 28.0 % 38.4-49.3 L 4544-3) MCV (test code = 86.7 fL 81.7-95.6 787-2) MCH (test code = 25.1 pg 26.1-32.7 L 785-6) MCHC (test code = 28.9 g/dL 31.2-35.0 L 786-4) RDW-SD (test code = 48.6 fL 38.5-51.6 84549-6) RDW-CV (test code = 15.4 % 12.1-15.4 788-0) PLT (test code = 453 See_Comment H [Automated 777-3) message] The sy stem which generated this result transmitted reference range : 150 - 328 10*3/ ?L. The reference r stevan was not used to interpret this result as normal/abnormal . MPV (test code = 10.7 fL 9.8-13.0 82599-3) NRBC/100 WBC (test 0.0 See_Comment [Automat ed code = 9837093910) message] The system which generated this result transmitted reference range : 0.0 - 10.0 /100 WBCs. The refer ence range was not u sed to interpret th is result as normal/abnormal . NRBC x10^3 (test code See_Comment [Auto mated = [id number]) message] The s ystem which generated this result transmitted reference range : 10*3/?L. The reference range was not used to interpret this result as normal/abnormal . GRAN MAT (NEUT) % 61.9 % (test code = 770-8) IMM GRAN % (test code 1.40 % = 4007448024) LYMPH % (test code = 20.4 % 736-9) MONO % (test code = 7.3 % 5905-5) EOS % (test code = 8.3 % 713-8) BASO % (test code = 0.7 % 706-2) GRAN MAT x10^3(ANC) 8.54 10*3/uL 1.99-6.95 H (test code = 2802315370) IMM GRAN x10^3 (test 0.19 10*3/uL 0.00-0.06 H code = 5742600076) LYMPH x10^3 (test code 2.81 10*3/uL 1.09-3.23 = 731-0) MONO x10^3 (test code 1.00 10*3/uL 0.36-1.02 = 742-7) EOS x10^3 (test code = 1.14 10*3/uL 0.06-0.53 H 711-2) BASO x10^3 (test code 0.10 10*3/uL 0.01-0.09 H = 704-7) Lab Interpretation Abnormal (test code = 80403-9) [facility] 13:49:37 Test Item Value Reference Range Interpretation Comments POCT GLU (test code = 0022026793) 194 mg/dL 70-110 H Lab Interpretation (test code = Abnormal 01793-0) [facility]. METABOLIC PANEL ([id number])2022-08-06 15:45:41 Test Item Value Reference Range Interpretation Comments NA (test code = 149 mmol/L 135-145 H 0143929644) K (test code = 4.7 mmol/L 3.5-5.0 9504985717) CL (test code = 109 mmol/L 98-108 H 7961482631) CO2 TOTAL (test code = 30 mmol/L 23-31 0225730452) AGAP (test code = 2-16 2668145318) BUN (test code = 109 mg/dL 7-23 H 9279547415) GLUCOSE (test code = 274 mg/dL 70-110 H 6217170393) CREATININE (test code = 2.58 mg/dL 0.60-1.25 H 8056731292) TOTAL BILI (test code = 0.3 mg/dL 0.1-1.4 0160681861) CALCIUM (test code = 9.9 mg/dL 8.6-10.6 7696097136) T PROTEIN (test code = 6.7 g/dL 6.3-8.2 4377628746) ALBUMIN (test code = 3.4 g/dL 3.5-5.0 L 4512241252) ALK PHOS (test code = 90 U/L 34-122 1321303587) ALTv (test code = 29 U/L 5-50 1742-6) AST(SGOT) (test code = 29 U/L 13-40 9496300731) eGFR (test code = mL/min/1.73m2 8826933179) OSBALDO (test code = OSBALDO) Association of Glomerular Filtration Rate (GFR) and Staging of Kidney Disease* + --+ --+ ------+| GFR (mL/min/1.73 m2) ?| With Kidney Damage ?| ?Without Kidney Damage+ --------+ --------+ +| ?>90 ?| ?Stage one ?| ? Normal ?+ ---+ ---+ -------+| ?60-89 ?| ?Stage two ?| ? Decreased GFR ? + --+ --+ ------+| ?30-59 ?| ?Stage three ?| ? Stage three ? + --+ --+ ------+| ?15-29 ?| ?Stage four ? | ? Stage four ?+ ---+ ---+ -------+| ?<15 (or dialysis) ? ?| ?Stage five ? | ? Stage five ?+ ---+ ---+ -------+ *Each stage assumes the associated GFR level has been in effect for at least three months. ?Stages 1 to 5, with or without kidney disease, indicate chronic kidney disease. Notes: Determination of stages one and two (with eGFR >59mL/min/1.73 m2) requires estimation of kidney damage for at least three months as defined by structural or functional abnormalities of the kidney, manifested by either:Pathological abnormalities or Markers of kidney damage (including abnormalities in the composition of the blood or urine or abnormalities in imaging tests). Lab Interpretation Abnormal (test code = 43183-0) [facility] WITH [id number] 15:33:25 Test Item Value Reference Range Interpretation Comments WBC (test code = See_Comment H [Automated 6690-2) message] The sy stem which generated this result transmitted reference range : 4.20 - 10.70 10*3/?L. The reference range was not used to interpret this result as normal/abnormal . RBC (test code = See_Comment L [Automated 789-8) message] The sy stem which generated this result transmitted reference range : 4.26 - 5.52 10*6/?L. The reference range was not used to interpret this result as normal/abnormal . HGB (test code = 8.0 g/dL 12.2-16.4 L 718-7) HCT (test code = 27.3 % 38.4-49.3 L 4544-3) MCV (test code = 87.2 fL 81.7-95.6 787-2) MCH (test code = 25.6 pg 26.1-32.7 L 785-6) MCHC (test code = 29.3 g/dL 31.2-35.0 L 786-4) RDW-SD (test code = 48.1 fL 38.5-51.6 68861-8) RDW-CV (test code = 15.2 % 12.1-15.4 788-0) PLT (test code = See_Comment H [Automated 777-3) message] The sy stem which generated this result transmitted reference range : 150 - 328 10*3/ ?L. The reference r stevan was not used to interpret this result as normal/abnormal . MPV (test code = 9.8 fL 9.8-13.0 86793-7) NRBC/100 WBC (test See_Comment [Automat ed code = 6256226698) message] The system which generated this result transmitted reference range : 0.0 - 10.0 /100 WBCs. The refer ence range was not u sed to interpret th is result as normal/abnormal . NRBC x10^3 (test code See_Comment [Auto mated = 7445887912) message] The s ystem which generated this result transmitted reference range : 10*3/?L. The reference range was not used to interpret this result as normal/abnormal . GRAN MAT (NEUT) % 60.5 % (test code = 770-8) IMM GRAN % (test code 0.50 % = 6627500794) LYMPH % (test code = 22.1 % 736-9) MONO % (test code = 7.3 % 5905-5) EOS % (test code = 8.5 % 713-8) BASO % (test code = 1.1 % 706-2) GRAN MAT x10^3(ANC) 7.84 10*3/uL 1.99-6.95 H (test code = 2195150493) IMM GRAN x10^3 (test 0.07 10*3/uL 0.00-0.06 H code = 4890281698) LYMPH x10^3 (test code 2.87 10*3/uL 1.09-3.23 = 731-0) MONO x10^3 (test code 0.95 10*3/uL 0.36-1.02 = 742-7) EOS x10^3 (test code = 1.10 10*3/uL 0.06-0.53 H 711-2) BASO x10^3 (test code 0.14 10*3/uL 0.01-0.09 H = 704-7) Lab Interpretation Abnormal (test code = 40431-7) [facility] [id number] 21:00:43 Test Item Value Reference Interpretation Comments Range TROPONIN I (test 0.004 ng/mL See_Comment [Automated code = 6396742934) message] The system which generated this result transmitted reference range : <=0.034. The reference range was not used to interpret this result as normal/abnormal . OSBALDO (test code = Reference (Normal) OSBALDO) Range (defined by the 99th percentile reference limit): <= 0.034 ng/mL Note: Cardiac troponin begins to rise 3-4 hours after the onset of ischemia. Repeat in 4-6 hours if the sample was drawn within 3-4 hours of the onset of the symptom and found normal. Diagnosis of myocardial injury is made with acute changes in cTn concentrations with at least one serial sample above the 99th percentile upper reference limit (URL), taken together with the patient's clinical presentation. Biotin has been reported to cause a negative bias, interpret results relative to patient's use of biotin. Lab Interpretation Normal (test code = 41342-3) [facility]. METABOLIC PANEL ([id number])2022-07-20 20:48:21 Test Item Value Reference Range Interpretation Comments NA (test code = 145 mmol/L 135-145 4273474628) K (test code = 4.4 mmol/L 3.5-5.0 3006248140) CL (test code = 107 mmol/L 98-108 3537779139) CO2 TOTAL (test code = 30 mmol/L 23-31 9473340760) AGAP (test code = 2-16 6102983064) BUN (test code = 97 mg/dL 7-23 H 1967748769) GLUCOSE (test code = 198 mg/dL 70-110 H 9075260153) CREATININE (test code = 2.32 mg/dL 0.60-1.25 H 8538784109) TOTAL BILI (test code = 0.3 mg/dL 0.1-1.1 1243598778) CALCIUM (test code = 9.8 mg/dL 8.6-10.6 6536456738) T PROTEIN (test code = 6.9 g/dL 6.3-8.2 9216834499) ALBUMIN (test code = 3.5 g/dL 3.5-5.0 1162890136) ALK PHOS (test code = 95 U/L 34-122 5199607242) ALTv (test code = 35 U/L 5-50 1742-6) AST(SGOT) (test code = 28 U/L 13-40 0169757546) eGFR (test code = mL/min/1.73m2 6535365608) OSBALDO (test code = OSBALDO) Association of Glomerular Filtration Rate (GFR) and Staging of Kidney Disease* + --+ --+ ------+| GFR (mL/min/1.73 m2) ?| With Kidney Damage ?| ?Without Kidney Damage+ --------+ --------+ +| ?>90 ?| ?Stage one ?| ? Normal ?+ ---+ ---+ -------+| ?60-89 ?| ?Stage two ?| ? Decreased GFR ? + --+ --+ ------+| ?30-59 ?| ?Stage three ?| ? Stage three ? + --+ --+ ------+| ?15-29 ?| ?Stage four ? | ? Stage four ?+ ---+ ---+ -------+| ?<15 (or dialysis) ? ?| ?Stage five ? | ? Stage five ?+ ---+ ---+ -------+ *Each stage assumes the associated GFR level has been in effect for at least three months. ?Stages 1 to 5, with or without kidney disease, indicate chronic kidney disease. Notes: Determination of stages one and two (with eGFR >59mL/min/1.73 m2) requires estimation of kidney damage for at least three months as defined by structural or functional abnormalities of the kidney, manifested by either:Pathological abnormalities or Markers of kidney damage (including abnormalities in the composition of the blood or urine or abnormalities in imaging tests). Lab Interpretation Abnormal (test code = 15385-3) [facility] WITH [id number] 20:44:59 Test Item Value Reference Range Interpretation Comments WBC (test code = See_Comment H [Automated 0578-2) message] The sy stem which generated this result transmitted reference range : 4.20 - 10.70 10*3/?L. The reference range was not used to interpret this result as normal/abnormal . RBC (test code = See_Comment L [Automated 169-8) message] The sy stem which generated this result transmitted reference range : 4.26 - 5.52 10*6/?L. The reference range was not used to interpret this result as normal/abnormal . HGB (test code = 7.5 g/dL 12.2-16.4 L 718-7) HCT (test code = 25.1 % 38.4-49.3 L 4544-3) MCV (test code = 87.8 fL 81.7-95.6 787-2) MCH (test code = 26.2 pg 26.1-32.7 785-6) MCHC (test code = 29.9 g/dL 31.2-35.0 L 786-4) RDW-SD (test code = 48.6 fL 38.5-51.6 37559-1) RDW-CV (test code = 15.3 % 12.1-15.4 788-0) PLT (test code = See_Comment H [Automated 777-3) message] The sy stem which generated this result transmitted reference range : 150 - 328 10*3/ ?L. The reference r stevan was not used to interpret this result as normal/abnormal . MPV (test code = 10.0 fL 9.8-13.0 27551-3) NRBC/100 WBC (test See_Comment [Automat ed code = 6026056469) message] The system which generated this result transmitted reference range : 0.0 - 10.0 /100 WBCs. The refer ence range was not u sed to interpret th is result as normal/abnormal . NRBC x10^3 (test code See_Comment [Auto mated = 5308867945) message] The s ystem which generated this result transmitted reference range : 10*3/?L. The reference range was not used to interpret this result as normal/abnormal . GRAN MAT (NEUT) % 67.7 % (test code = 770-8) IMM GRAN % (test code 0.60 % = 9901280227) LYMPH % (test code = 18.2 % 736-9) MONO % (test code = 7.1 % 5905-5) EOS % (test code = 5.9 % 713-8) BASO % (test code = 0.5 % 706-2) GRAN MAT x10^3(ANC) 9.49 10*3/uL 1.99-6.95 H (test code = 9864602959) IMM GRAN x10^3 (test 0.08 10*3/uL 0.00-0.06 H code = 4787413330) LYMPH x10^3 (test code 2.54 10*3/uL 1.09-3.23 = 731-0) MONO x10^3 (test code 0.99 10*3/uL 0.36-1.02 = 742-7) EOS x10^3 (test code = 0.82 10*3/uL 0.06-0.53 H 711-2) BASO x10^3 (test code 0.07 10*3/uL 0.01-0.09 = 704-7) Lab Interpretation Abnormal (test code = 37912-4) [facility]. METABOLIC PANEL ([id number])2022-07-16 15:05:02 Test Item Value Reference Range Interpretation Comments NA (test code = 144 mmol/L 135-145 3094777892) K (test code = 5.0 mmol/L 3.5-5.0 2362735311) CL (test code = 106 mmol/L 98-108 4936295126) CO2 TOTAL (test code = 29 mmol/L 23-31 3420454591) AGAP (test code = 2-16 1296092108) BUN (test code = 113 mg/dL 7-23 H 2231641713) GLUCOSE (test code = 267 mg/dL 70-110 H 0524678301) CREATININE (test code = 2.56 mg/dL 0.60-1.25 H 9133015870) TOTAL BILI (test code = 0.3 mg/dL 0.1-1.7 0813448393) CALCIUM (test code = 9.7 mg/dL 8.6-10.6 6995954398) T PROTEIN (test code = 7.1 g/dL 6.3-8.2 7883565973) ALBUMIN (test code = 3.5 g/dL 3.5-5.0 0162626427) ALK PHOS (test code = 107 U/L 34-122 0302710500) ALTv (test code = 37 U/L 5-50 1742-6) AST(SGOT) (test code = 25 U/L 13-40 8697828330) eGFR (test code = mL/min/1.73m2 3606112162) OSBALDO (test code = OSBALDO) Association of Glomerular Filtration Rate (GFR) and Staging of Kidney Disease* + --+ --+ ------+| GFR (mL/min/1.73 m2) ?| With Kidney Damage ?| ?Without Kidney Damage+ --------+ --------+ +| ?>90 ?| ?Stage one ?| ? Normal ?+ ---+ ---+ -------+| ?60-89 ?| ?Stage two ?| ? Decreased GFR ? + --+ --+ ------+| ?30-59 ?| ?Stage three ?| ? Stage three ? + --+ --+ ------+| ?15-29 ?| ?Stage four ? | ? Stage four ?+ ---+ ---+ -------+| ?<15 (or dialysis) ? ?| ?Stage five ? | ? Stage five ?+ ---+ ---+ -------+ *Each stage assumes the associated GFR level has been in effect for at least three months. ?Stages 1 to 5, with or without kidney disease, indicate chronic kidney disease. Notes: Determination of stages one and two (with eGFR >59mL/min/1.73 m2) requires estimation of kidney damage for at least three months as defined by structural or functional abnormalities of the kidney, manifested by either:Pathological abnormalities or Markers of kidney damage (including abnormalities in the composition of the blood or urine or abnormalities in imaging tests). Lab Interpretation Abnormal (test code = 04335-3) [facility] WITH [id number] 14:45:23 Test Item Value Reference Range Interpretation Comments WBC (test code = See_Comment H [Automated 1890-2) message] The system which generated this result transmit mendoza reference range : 4.20 - 10.70 10*3/?L. The reference range was not used to interpret this result as normal/abnormal . RBC (test code = See_Comment L [Automated 789-8) message] The system which generated this result transmit mendoza reference range : 4.26 - 5.52 10*6/?L. The reference range was not used to interpret this result as normal/abnormal . HGB (test code = 7.5 g/dL 12.2-16.4 L 718-7) HCT (test code = 25.4 % 38.4-49.3 L 4544-3) MCV (test code = 87.0 fL 81.7-95.6 787-2) MCH (test code = 25.7 pg 26.1-32.7 L 785-6) MCHC (test code = 29.5 g/dL 31.2-35.0 L 786-4) RDW-SD (test code = 47.2 fL 38.5-51.6 83570-4) RDW-CV (test code = 15.1 % 12.1-15.4 788-0) PLT (test code = See_Comment H [Automated 777-3) message] The system which generated this result transmit mendoza reference range : 150 - 328 10*3/ ?L. The reference range was not u sed to interpret th is result as normal/abnormal . MPV (test code = 9.8 fL 9.8-13.0 94672-5) NRBC/100 WBC (test See_Comment [Automat ed code = 9886041647) message] The system which generated this result transmit mendoza reference range : 0.0 - 10.0 /100 WBCs. The reference range was not used to interpret this result as normal/abnormal . NRBC x10^3 (test code See_Comment [Auto mated = 7853349031) message] The system which generated this result transmit mendoza reference range : 10*3/?L. The reference range was not used to interpret this result as normal/abnormal . GRAN MAT (NEUT) % 67.6 % (test code = 770-8) IMM GRAN % (test code 0.60 % = 9482609022) LYMPH % (test code = 18.2 % 736-9) MONO % (test code = 5.9 % 5905-5) EOS % (test code = 6.9 % 713-8) BASO % (test code = 0.8 % 706-2) GRAN MAT x10^3(ANC) 10.42 10*3/uL 1.99-6.95 H (test code = 4711562168) IMM GRAN x10^3 (test 0.09 10*3/uL 0.00-0.06 H code = 5030831807) LYMPH x10^3 (test code 2.81 10*3/uL 1.09-3.23 = 731-0) MONO x10^3 (test code 0.91 10*3/uL 0.36-1.02 = 742-7) EOS x10^3 (test code = 1.06 10*3/uL 0.06-0.53 H 711-2) BASO x10^3 (test code 0.13 10*3/uL 0.01-0.09 H = 704-7) Lab Interpretation Abnormal (test code = 02656-1) [facility] GLUCOSE (AUTOMATED)2022-07-09 01:27:57 Test Item Value Reference Range Interpretation Comments POCT GLU (test code = 5469919485) 146 mg/dL 70-110 H Lab Interpretation (test code = Abnormal 50138-0) [facility] GLUCOSE (AUTOMATED)2022-07-09 00:34:36 Test Item Value Reference Range Interpretation Comments POCT GLU (test code = 0389793148) 154 mg/dL 70-110 H Lab Interpretation (test code = Abnormal 35015-6) [facility] GLUCOSE (AUTOMATED)2022-07-08 19:34:29 Test Item Value Reference Range Interpretation Comments POCT GLU (test code = 4342381134) 195 mg/dL 70-110 H Lab Interpretation (test code = Abnormal 16395-5) [facility] GLUCOSE (AUTOMATED)2022-04-27 18:54:49 Test Item Value Reference Range Interpretation Comments POCT GLU (test code = 0624703420) 178 mg/dL 70-110 H Lab Interpretation (test code = Abnormal 49744-4) [facility] GLUCOSE (AUTOMATED)2022-04-27 17:02:53 Test Item Value Reference Range Interpretation Comments POCT GLU (test code = 8850345078) 166 mg/dL 70-110 H Lab Interpretation (test code = Abnormal 56362-2) [facility] GLUCOSE (AUTOMATED)2022-04-27 17:02:53 Test Item Value Reference Range Interpretation Comments POCT GLU (test code = 4606768901) 166 mg/dL 70-110 H Lab Interpretation (test code = Abnormal 42154-1) [facility] GLUCOSE (AUTOMATED)2022-04-27 13:23:31 Test Item Value Reference Range Interpretation Comments POCT GLU (test code = 6460151826) 165 mg/dL 70-110 H Lab Interpretation (test code = Abnormal 45933-3) [facility] GLUCOSE (AUTOMATED)2022-04-27 13:23:31 Test Item Value Reference Range Interpretation Comments POCT GLU (test code = 4626284275) 165 mg/dL 70-110 H Lab Interpretation (test code = Abnormal 05811-5) [facility] GLUCOSE (AUTOMATED)2022-04-27 08:57:26 Test Item Value Reference Range Interpretation Comments POCT GLU (test code = 8828130427) 237 mg/dL 70-110 H Lab Interpretation (test code = Abnormal 39640-9) [facility] GLUCOSE (AUTOMATED)2022-04-27 08:57:26 Test Item Value Reference Range Interpretation Comments POCT GLU (test code = 0743981107) 237 mg/dL 70-110 H Lab Interpretation (test code = Abnormal 46330-0) [facility] GLUCOSE (AUTOMATED)2022-04-27 04:29:25 Test Item Value Reference Range Interpretation Comments POCT GLU (test code = 7991841141) 218 mg/dL 70-110 H Lab Interpretation (test code = Abnormal 32751-9) [facility] GLUCOSE (AUTOMATED)2022-04-27 04:29:25 Test Item Value Reference Range Interpretation Comments POCT GLU (test code = 9312014304) 218 mg/dL 70-110 H Lab Interpretation (test code = Abnormal 76996-9) [facility] GLUCOSE (AUTOMATED)2022-04-27 01:18:56 Test Item Value Reference Range Interpretation Comments POCT GLU (test code = 8951259254) 157 mg/dL 70-110 H Lab Interpretation (test code = Abnormal 86547-4) [facility] GLUCOSE (AUTOMATED)2022-04-27 01:18:56 Test Item Value Reference Range Interpretation Comments POCT GLU (test code = 3488629088) 157 mg/dL 70-110 H Lab Interpretation (test code = Abnormal 75301-2) [facility]ood Culture - Peripheral # [id number] 00:02:01 Test Item Value Reference Range Interpretation Comments Blood Culture-Aerobic No organisms No growth Previo us (test code = 85664-8) isolated prelim inary verified result was Culture In Progress on 04/21/2022 at 22 02 CDTPrevious preliminary verified result was No growth a t 24 hours on 04/22/2022 at 18 08 CDTPrevious preliminary verified result was No growth a t 48 hours on 04/23/2022 at 18 08 CDTPrevious preliminary verified result was No growth a t 72 hours on 04/24/2022 at 18 08 CDT Blood No organisms No growth Previous Culture-Anaerobic isolated preliminar y (test code = 51207-2) verifi ed result was Culture In Progress on 04/21/2022 at 21 09 CDTPrevious preliminary verified result was No growth a t 24 hours on 04/22/2022 at 18 08 CDTPrevious preliminary verified result was No growth a t 48 hours on 04/23/2022 at 18 08 CDTPrevious preliminary verified result was No growth a t 72 hours on 04/24/2022 at 18 08 CDT Lab Interpretation Normal (test code = 93034-0) [facility] Culture - Peripheral # [id number] 00:02:01 Test Item Value Reference Range Interpretation Comments Blood Culture-Aerobic No organisms No growth Previo us (test code = 05882-9) isolated prelim inary verified result was Culture In Progress on 04/21/2022 at 21 09 CDTPrevious preliminary verified result was No growth a t 24 hours on 04/22/2022 at 18 08 CDTPrevious preliminary verified result was No growth a t 48 hours on 04/23/2022 at 18 08 CDTPrevious preliminary verified result was No growth a t 72 hours on 04/24/2022 at 18 08 CDT Blood No organisms No growth Previous Culture-Anaerobic isolated preliminar y (test code = 24603-6) verifi ed result was Culture In Progress on 04/21/2022 at 21 09 CDTPrevious preliminary verified result was No growth a t 24 hours on 04/22/2022 at 18 08 CDTPrevious preliminary verified result was No growth a t 48 hours on 04/23/2022 at 18 08 CDTPrevious preliminary verified result was No growth a t 72 hours on 04/24/2022 at 18 08 CDT Lab Interpretation Normal (test code = 20234-8) [facility] Culture - Peripheral # [id number] 00:02:01 Test Item Value Reference Range Interpretation Comments Blood Culture-Aerobic No organisms No growth Previo us (test code = 58453-9) isolated prelim inary verified result was Culture In Progress on 04/21/2022 at 22 CDTPrevious preliminary verified result was No growth a t 24 hours on 04/22/2022 at 18 08 CDTPrevious preliminary verified result was No growth a t 48 hours on 04/23/2022 at 18 08 CDTPrevious preliminary verified result was No growth a t 72 hours on 04/24/2022 at 18 08 CDT Blood No organisms No growth Previous Culture-Anaerobic isolated preliminar y (test code = 94364-0) verifi ed result was Culture In Progress on 04/21/2022 at 21 09 CDTPrevious preliminary verified result was No growth a t 24 hours on 04/22/2022 at 18 08 CDTPrevious preliminary verified result was No growth a t 48 hours on 04/23/2022 at 18 08 CDTPrevious preliminary verified result was No growth a t 72 hours on 04/24/2022 at 18 08 CDT Lab Interpretation Normal (test code = 56701-0) [facility] [id number] 00:02:01 Test Item Value Reference Range Interpretation Comments Blood Culture-Aerobic No organisms No growth Previo us (test code = 55061-1) isolated prelim inary verified result was Culture In Progress on 04/21/2022 at 22 CDTPrevious preliminary verified result was No growth a t 24 hours on 04/22/2022 at 18 08 CDTPrevious preliminary verified result was No growth a t 48 hours on 04/23/2022 at 18 08 CDTPrevious preliminary verified result was No growth a t 72 hours on 04/24/2022 at 18 08 CDT Blood No organisms No growth Previous Culture-Anaerobic isolated preliminar y (test code = 29832-5) verifi ed result was Culture In Progress on 04/21/2022 at 21 09 CDTPrevious preliminary verified result was No growth a t 24 hours on 04/22/2022 at 18 08 CDTPrevious preliminary verified result was No growth a t 48 hours on 04/23/2022 at 18 08 CDTPrevious preliminary verified result was No growth a t 72 hours on 04/24/2022 at 18 08 CDT Lab Interpretation Normal (test code = 18983-3) [facility] GLUCOSE (AUTOMATED)2022-04-26 22:07:21 Test Item Value Reference Range Interpretation Comments POCT GLU (test code = 9797178328) 163 mg/dL 70-110 H Lab Interpretation (test code = Abnormal 55846-3) [facility] GLUCOSE (AUTOMATED)2022-04-26 22:07:21 Test Item Value Reference Range Interpretation Comments POCT GLU (test code = 4386086206) 163 mg/dL 70-110 H Lab Interpretation (test code = Abnormal 68699-3) [facility] GLUCOSE (AUTOMATED)2022-04-26 17:02:07 Test Item Value Reference Range Interpretation Comments POCT GLU (test code = 5044282800) 115 mg/dL 70-110 H Lab Interpretation (test code = Abnormal 99907-8) [facility] GLUCOSE (AUTOMATED)2022-04-26 17:02:07 Test Item Value Reference Range Interpretation Comments POCT GLU (test code = 0201074556) 115 mg/dL 70-110 H Lab Interpretation (test code = Abnormal 02106-4) [facility] GLUCOSE (AUTOMATED)2022-04-26 13:05:46 Test Item Value Reference Range Interpretation Comments POCT GLU (test code = 6960880932) 141 mg/dL 70-110 H Lab Interpretation (test code = Abnormal 90674-0) [facility] GLUCOSE (AUTOMATED)2022-04-26 13:05:46 Test Item Value Reference Range Interpretation Comments POCT GLU (test code = 2944375311) 141 mg/dL 70-110 H Lab Interpretation (test code = Abnormal 99285-4) [facility] METABOLIC PANEL (NA, K, CL, CO2, GLUCOSE, BUN, CREATININE, CA)2022-04-26 10:38:53 Test Item Value Reference Range Interpretation Comments NA (test code = 137 mmol/L 135-145 8205883214) K (test code = 4.5 mmol/L 3.5-5 2481033529) CL (test code = 103 mmol/L 98-108 0921565492) CO2 TOTAL (test code = 24 mmol/L 23-31 0756221808) AGAP (test code = 2-16 2683432249) BUN (test code = 68 mg/dL 7-23 H 5308666963) GLUCOSE (test code = 207 mg/dL 70-110 H 5416325229) CREATININE (test code = 2.02 mg/dL 0.6-1.25 H 6590635714) CALCIUM (test code = 9.1 mg/dL 8.6-10.6 2266965588) eGFR (test code = mL/min/1.73m2 0050504303) OSBALDO (test code = OSBALDO) Association of Glomerular Filtration Rate (GFR) and Staging of Kidney Disease* + --+ --+ ------+| GFR (mL/min/1.73 m2) ?| With Kidney Damage ?| ?Without Kidney Damage+ --------+ --------+ +| ?>90 ?| ?Stage one ?| ? Normal ?+ ---+ ---+ -------+| ?60-89 ?| ?Stage two ?| ? Decreased GFR ? + --+ --+ ------+| ?30-59 ?| ?Stage three ?| ? Stage three ? + --+ --+ ------+| ?15-29 ?| ?Stage four ? | ? Stage four ?+ ---+ ---+ -------+| ?<15 (or dialysis) ? ?| ?Stage five ? | ? Stage five ?+ ---+ ---+ -------+ *Each stage assumes the associated GFR level has been in effect for at least three months. ?Stages 1 to 5, with or without kidney disease, indicate chronic kidney disease. Notes: Determination of stages one and two (with eGFR >59mL/min/1.73 m2) requires estimation of kidney damage for at least three months as defined by structural or functional abnormalities of the kidney, manifested by either:Pathological abnormalities or Markers of kidney damage (including abnormalities in the composition of the blood or urine or abnormalities in imaging tests). Lab Interpretation Abnormal (test code = 78644-0) [facility] METABOLIC PANEL (NA, K, CL, CO2, GLUCOSE, BUN, CREATININE, CA)2022-04-26 10:38:53 Test Item Value Reference Range Interpretation Comments NA (test code = 137 mmol/L 135-145 2420217643) K (test code = 4.5 mmol/L 3.5-5 2196722634) CL (test code = 103 mmol/L 98-108 4763608499) CO2 TOTAL (test code = 24 mmol/L 23-31 0783569968) AGAP (test code = 2-16 6148009855) BUN (test code = 68 mg/dL 7-23 H 3715336516) GLUCOSE (test code = 207 mg/dL 70-110 H 8280025081) CREATININE (test code = 2.02 mg/dL 0.6-1.25 H 5959128831) CALCIUM (test code = 9.1 mg/dL 8.6-10.6 5484969717) eGFR (test code = mL/min/1.73m2 0252385674) OSBALDO (test code = OSBALDO) Association of Glomerular Filtration Rate (GFR) and Staging of Kidney Disease* + --+ --+ ------+| GFR (mL/min/1.73 m2) ?| With Kidney Damage ?| ?Without Kidney Damage+ --------+ --------+ +| ?>90 ?| ?Stage one ?| ? Normal ?+ ---+ ---+ -------+| ?60-89 ?| ?Stage two ?| ? Decreased GFR ? + --+ --+ ------+| ?30-59 ?| ?Stage three ?| ? Stage three ? + --+ --+ ------+| ?15-29 ?| ?Stage four ? | ? Stage four ?+ ---+ ---+ -------+| ?<15 (or dialysis) ? ?| ?Stage five ? | ? Stage five ?+ ---+ ---+ -------+ *Each stage assumes the associated GFR level has been in effect for at least three months. ?Stages 1 to 5, with or without kidney disease, indicate chronic kidney disease. Notes: Determination of stages one and two (with eGFR >59mL/min/1.73 m2) requires estimation of kidney damage for at least three months as defined by structural or functional abnormalities of the kidney, manifested by either:Pathological abnormalities or Markers of kidney damage (including abnormalities in the composition of the blood or urine or abnormalities in imaging tests). Lab Interpretation Abnormal (test code = 86493-8) [facility] WITH [id number] 10:21:12 Test Item Value Reference Range Interpretation Comments WBC (test code = See_Comment H [Automated 6690-2) message] The sy stem which generated this result transmitted reference range : 4.20 - 10.70 10*3/?L. The reference range was not used to interpret this result as normal/abnormal . RBC (test code = See_Comment L [Automated 789-8) message] The sy stem which generated this result transmitted reference range : 4.26 - 5.52 10*6/?L. The reference range was not used to interpret this result as normal/abnormal . HGB (test code = 8.7 g/dL 12.2-16.4 L 718-7) HCT (test code = 28.0 % 38.4-49.3 L 4544-3) MCV (test code = 87.0 fL 81.7-95.6 787-2) MCH (test code = 27.0 pg 26.1-32.7 785-6) MCHC (test code = 31.1 g/dL 31.2-35 L 786-4) RDW-SD (test code = 50.2 fL 38.5-51.6 89295-0) RDW-CV (test code = 15.9 % 12.1-15.4 H 788-0) PLT (test code = See_Comment H [Automated 777-3) message] The sy stem which generated this result transmitted reference range : 150 - 328 10*3/ ?L. The reference r stevan was not used to interpret this result as normal/abnormal . MPV (test code = 10.1 fL 9.8-13 90356-3) NRBC/100 WBC (test See_Comment [Automat ed code = 0299407859) message] The system which generated this result transmitted reference range : 0.0 - 10.0 /100 WBCs. The refer ence range was not u sed to interpret th is result as normal/abnormal . NRBC x10^3 (test code See_Comment [Auto mated = 8038370636) message] The s ystem which generated this result transmitted reference range : 10*3/?L. The reference range was not used to interpret this result as normal/abnormal . GRAN MAT (NEUT) % 78.1 % (test code = 770-8) IMM GRAN % (test code 0.60 % = 5314206116) LYMPH % (test code = 16.3 % 736-9) MONO % (test code = 4.6 % 5905-5) EOS % (test code = 0.0 % 713-8) BASO % (test code = 0.4 % 706-2) GRAN MAT x10^3(ANC) 9.10 10*3/uL 1.99-6.95 H (test code = 2478792364) IMM GRAN x10^3 (test 0.07 10*3/uL 0-0.06 H code = 8822848007) LYMPH x10^3 (test code 1.90 10*3/uL 1.09-3.23 = 731-0) MONO x10^3 (test code 0.54 10*3/uL 0.36-1.02 = 742-7) EOS x10^3 (test code = 0.06-0.53 L 711-2) BASO x10^3 (test code 0.05 10*3/uL 0.01-0.09 = 704-7) Lab Interpretation Abnormal (test code = 74504-2) [facility] WITH [id number] 10:21:12 Test Item Value Reference Range Interpretation Comments WBC (test code = See_Comment H [Automated 6690-2) message] The sy stem which generated this result transmitted reference range : 4.20 - 10.70 10*3/?L. The reference range was not used to interpret this result as normal/abnormal . RBC (test code = See_Comment L [Automated 789-8) message] The sy stem which generated this result transmitted reference range : 4.26 - 5.52 10*6/?L. The reference range was not used to interpret this result as normal/abnormal . HGB (test code = 8.7 g/dL 12.2-16.4 L 718-7) HCT (test code = 28.0 % 38.4-49.3 L 4544-3) MCV (test code = 87.0 fL 81.7-95.6 787-2) MCH (test code = 27.0 pg 26.1-32.7 785-6) MCHC (test code = 31.1 g/dL 31.2-35 L 786-4) RDW-SD (test code = 50.2 fL 38.5-51.6 31548-2) RDW-CV (test code = 15.9 % 12.1-15.4 H 788-0) PLT (test code = See_Comment H [Automated 777-3) message] The sy stem which generated this result transmitted reference range : 150 - 328 10*3/ ?L. The reference r stevan was not used to interpret this result as normal/abnormal . MPV (test code = 10.1 fL 9.8-13 37920-2) NRBC/100 WBC (test See_Comment [Automat ed code = 2730338753) message] The system which generated this result transmitted reference range : 0.0 - 10.0 /100 WBCs. The refer ence range was not u sed to interpret th is result as normal/abnormal . NRBC x10^3 (test code See_Comment [Auto mated = 6373568568) message] The s ystem which generated this result transmitted reference range : 10*3/?L. The reference range was not used to interpret this result as normal/abnormal . GRAN MAT (NEUT) % 78.1 % (test code = 770-8) IMM GRAN % (test code 0.60 % = 7419223180) LYMPH % (test code = 16.3 % 736-9) MONO % (test code = 4.6 % 5905-5) EOS % (test code = 0.0 % 713-8) BASO % (test code = 0.4 % 706-2) GRAN MAT x10^3(ANC) 9.10 10*3/uL 1.99-6.95 H (test code = 2989776336) IMM GRAN x10^3 (test 0.07 10*3/uL 0-0.06 H code = 8225941915) LYMPH x10^3 (test code 1.90 10*3/uL 1.09-3.23 = 731-0) MONO x10^3 (test code 0.54 10*3/uL 0.36-1.02 = 742-7) EOS x10^3 (test code = 0.06-0.53 L 711-2) BASO x10^3 (test code 0.05 10*3/uL 0.01-0.09 = 704-7) Lab Interpretation Abnormal (test code = 34537-2) [facility] GLUCOSE (AUTOMATED)2022-04-26 09:12:55 Test Item Value Reference Range Interpretation Comments POCT GLU (test code = 2363225687) 211 mg/dL 70-110 H Lab Interpretation (test code = Abnormal 06718-4) [facility] GLUCOSE (AUTOMATED)2022-04-26 09:12:55 Test Item Value Reference Range Interpretation Comments POCT GLU (test code = 1635922916) 211 mg/dL 70-110 H Lab Interpretation (test code = Abnormal 91595-9) [facility] GLUCOSE (AUTOMATED)2022-04-26 04:43:03 Test Item Value Reference Range Interpretation Comments POCT GLU (test code = 0472792824) 249 mg/dL 70-110 H Lab Interpretation (test code = Abnormal 95433-4) [facility] GLUCOSE (AUTOMATED)2022-04-26 04:43:03 Test Item Value Reference Range Interpretation Comments POCT GLU (test code = 2626124542) 249 mg/dL 70-110 H Lab Interpretation (test code = Abnormal 43672-0) [facility] GLUCOSE (AUTOMATED)2022-04-26 02:09:46 Test Item Value Reference Range Interpretation Comments POCT GLU (test code = 4508248096) 206 mg/dL 70-110 H Lab Interpretation (test code = Abnormal 00464-8) [facility] GLUCOSE (AUTOMATED)2022-04-26 02:09:46 Test Item Value Reference Range Interpretation Comments POCT GLU (test code = 6061873412) 206 mg/dL 70-110 H Lab Interpretation (test code = Abnormal 23763-7) [facility] GLUCOSE (AUTOMATED)2022-04-25 22:05:07 Test Item Value Reference Range Interpretation Comments POCT GLU (test code = 6015372179) 242 mg/dL 70-110 H Lab Interpretation (test code = Abnormal 68184-1) [facility] GLUCOSE (AUTOMATED)2022-04-25 22:05:07 Test Item Value Reference Range Interpretation Comments POCT GLU (test code = 9376267161) 242 mg/dL 70-110 H Lab Interpretation (test code = Abnormal 79148-9) [facility] GLUCOSE (AUTOMATED)2022-04-25 17:04:31 Test Item Value Reference Range Interpretation Comments POCT GLU (test code = 5028760121) 323 mg/dL 70-110 H Lab Interpretation (test code = Abnormal 58535-7) [facility] GLUCOSE (AUTOMATED)2022-04-25 17:04:31 Test Item Value Reference Range Interpretation Comments POCT GLU (test code = 5638823791) 323 mg/dL 70-110 H Lab Interpretation (test code = Abnormal 04711-3) [id number] 14:54:30 Test Item Value Reference Range Interpretation Comments VIT D 25OH (test code = 24 ng/mL 25-80 L 48499-9) OSBALDO (test code = OSBALDO) Deficiency: <20 ng/mLInsufficiency: 20-24 ng/mLOptimal: 25-80 ng/mL Lab Interpretation (test Abnormal code = 88619-0) [facility], [id number] 14:54:30 Test Item Value Reference Range Interpretation Comments VIT D 25OH (test code = 24 ng/mL 25-80 L 02448-1) OSBALDO (test code = OSBALDO) Deficiency: <20 ng/mLInsufficiency: 20-24 ng/mLOptimal: 25-80 ng/mL Lab Interpretation (test Abnormal code = 07352-4) [facility] GLUCOSE (AUTOMATED)2022-04-25 11:30:01 Test Item Value Reference Range Interpretation Comments POCT GLU (test code = 9649926409) 231 mg/dL 70-110 H Lab Interpretation (test code = Abnormal 83102-2) [facility] GLUCOSE (AUTOMATED)2022-04-25 11:30:01 Test Item Value Reference Range Interpretation Comments POCT GLU (test code = 3256470131) 231 mg/dL 70-110 H Lab Interpretation (test code = Abnormal 51663-2) [facility] (NA, K, CL, CO2, GLUCOSE, BUN, CREATININE, CA)2022-04-25 09:38:23 Test Item Value Reference Range Interpretation Comments NA (test code = 141 mmol/L 135-145 0253739984) K (test code = 4.8 mmol/L 3.5-5 3771931552) CL (test code = 106 mmol/L 98-108 7593909063) CO2 TOTAL (test code = 26 mmol/L 23-31 1011527313) AGAP (test code = 2-16 6880176274) BUN (test code = 67 mg/dL 7-23 H 8903223832) GLUCOSE (test code = 311 mg/dL 70-110 H 3416963167) CREATININE (test code = 2.18 mg/dL 0.6-1.25 H 3726887388) CALCIUM (test code = 8.8 mg/dL 8.6-10.6 6586318550) eGFR (test code = mL/min/1.73m2 4991534021) OSBALDO (test code = OSBALDO) Association of Glomerular Filtration Rate (GFR) and Staging of Kidney Disease* + --+ --+ ------+| GFR (mL/min/1.73 m2) ?| With Kidney Damage ?| ?Without Kidney Damage+ --------+ --------+ +| ?>90 ?| ?Stage one ?| ? Normal ?+ ---+ ---+ -------+| ?60-89 ?| ?Stage two ?| ? Decreased GFR ? + --+ --+ ------+| ?30-59 ?| ?Stage three ?| ? Stage three ? + --+ --+ ------+| ?15-29 ?| ?Stage four ? | ? Stage four ?+ ---+ ---+ -------+| ?<15 (or dialysis) ? ?| ?Stage five ? | ? Stage five ?+ ---+ ---+ -------+ *Each stage assumes the associated GFR level has been in effect for at least three months. ?Stages 1 to 5, with or without kidney disease, indicate chronic kidney disease. Notes: Determination of stages one and two (with eGFR >59mL/min/1.73 m2) requires estimation of kidney damage for at least three months as defined by structural or functional abnormalities of the kidney, manifested by either:Pathological abnormalities or Markers of kidney damage (including abnormalities in the composition of the blood or urine or abnormalities in imaging tests). Lab Interpretation Abnormal (test code = 77308-8) [facility] METABOLIC PANEL (NA, K, CL, CO2, GLUCOSE, BUN, CREATININE, CA)2022-04-25 09:38:23 Test Item Value Reference Range Interpretation Comments NA (test code = 141 mmol/L 135-145 6609568001) K (test code = 4.8 mmol/L 3.5-5 7117942285) CL (test code = 106 mmol/L 98-108 4441014129) CO2 TOTAL (test code = 26 mmol/L 23-31 9393324056) AGAP (test code = 2-16 5200508318) BUN (test code = 67 mg/dL 7-23 H 2004876834) GLUCOSE (test code = 311 mg/dL 70-110 H 7018009222) CREATININE (test code = 2.18 mg/dL 0.6-1.25 H 0827342829) CALCIUM (test code = 8.8 mg/dL 8.6-10.6 5363765703) eGFR (test code = mL/min/1.73m2 3861217897) OSBALDO (test code = OSBALDO) Association of Glomerular Filtration Rate (GFR) and Staging of Kidney Disease* + --+ --+ ------+| GFR (mL/min/1.73 m2) ?| With Kidney Damage ?| ?Without Kidney Damage+ --------+ --------+ +| ?>90 ?| ?Stage one ?| ? Normal ?+ ---+ ---+ -------+| ?60-89 ?| ?Stage two ?| ? Decreased GFR ? + --+ --+ ------+| ?30-59 ?| ?Stage three ?| ? Stage three ? + --+ --+ ------+| ?15-29 ?| ?Stage four ? | ? Stage four ?+ ---+ ---+ -------+| ?<15 (or dialysis) ? ?| ?Stage five ? | ? Stage five ?+ ---+ ---+ -------+ *Each stage assumes the associated GFR level has been in effect for at least three months. ?Stages 1 to 5, with or without kidney disease, indicate chronic kidney disease. Notes: Determination of stages one and two (with eGFR >59mL/min/1.73 m2) requires estimation of kidney damage for at least three months as defined by structural or functional abnormalities of the kidney, manifested by either:Pathological abnormalities or Markers of kidney damage (including abnormalities in the composition of the blood or urine or abnormalities in imaging tests). Lab Interpretation Abnormal (test code = 44354-8) [facility] WITH [id number] 09:17:41 Test Item Value Reference Range Interpretation Comments WBC (test code = See_Comment H [Automated 6690-2) message] The system which generated this result transmit mendoza reference range : 4.20 - 10.70 10*3/?L. The reference range was not used to interpret this result as normal/abnormal . RBC (test code = See_Comment L [Automated 789-8) message] The system which generated this result transmit mendoza reference range : 4.26 - 5.52 10*6/?L. The reference range was not used to interpret this result as normal/abnormal . HGB (test code = 8.6 g/dL 12.2-16.4 L 718-7) HCT (test code = 27.0 % 38.4-49.3 L 4544-3) MCV (test code = 86.0 fL 81.7-95.6 787-2) MCH (test code = 27.4 pg 26.1-32.7 785-6) MCHC (test code = 31.9 g/dL 31.2-35 786-4) RDW-SD (test code = 50.1 fL 38.5-51.6 76171-5) RDW-CV (test code = 15.9 % 12.1-15.4 H 788-0) PLT (test code = See_Comment H [Automated 777-3) message] The system which generated this result transmit mendoza reference range : 150 - 328 10*3/ ?L. The reference range was not u sed to interpret th is result as normal/abnormal . MPV (test code = 9.4 fL 9.8-13 L 50304-5) NRBC/100 WBC (test See_Comment [Automat ed code = 7536047655) message] The system which generated this result transmit mendoza reference range : 0.0 - 10.0 /100 WBCs. The reference range was not used to interpret this result as normal/abnormal . NRBC x10^3 (test code See_Comment [Auto mated = 5773865766) message] The system which generated this result transmit mendoza reference range : 10*3/?L. The reference range was not used to interpret this result as normal/abnormal . GRAN MAT (NEUT) % 87.8 % (test code = 770-8) IMM GRAN % (test code 0.60 % = 8718155391) LYMPH % (test code = 9.0 % 736-9) MONO % (test code = 2.3 % 5905-5) EOS % (test code = 0.0 % 713-8) BASO % (test code = 0.3 % 706-2) GRAN MAT x10^3(ANC) 10.48 10*3/uL 1.99-6.95 H (test code = 7166386127) IMM GRAN x10^3 (test 0.07 10*3/uL 0-0.06 H code = 5915827585) LYMPH x10^3 (test code 1.07 10*3/uL 1.09-3.23 L = 731-0) MONO x10^3 (test code 0.27 10*3/uL 0.36-1.02 L = 742-7) EOS x10^3 (test code = 0.06-0.53 L 711-2) BASO x10^3 (test code 0.03 10*3/uL 0.01-0.09 = 704-7) Lab Interpretation Abnormal (test code = 51052-8) [facility] WITH [id number] 09:17:41 Test Item Value Reference Range Interpretation Comments WBC (test code = See_Comment H [Automated 6690-2) message] The system which generated this result transmit mendoza reference range : 4.20 - 10.70 10*3/?L. The reference range was not used to interpret this result as normal/abnormal . RBC (test code = See_Comment L [Automated 789-8) message] The system which generated this result transmit mendoza reference range : 4.26 - 5.52 10*6/?L. The reference range was not used to interpret this result as normal/abnormal . HGB (test code = 8.6 g/dL 12.2-16.4 L 718-7) HCT (test code = 27.0 % 38.4-49.3 L 4544-3) MCV (test code = 86.0 fL 81.7-95.6 787-2) MCH (test code = 27.4 pg 26.1-32.7 785-6) MCHC (test code = 31.9 g/dL 31.2-35 786-4) RDW-SD (test code = 50.1 fL 38.5-51.6 04648-1) RDW-CV (test code = 15.9 % 12.1-15.4 H 788-0) PLT (test code = See_Comment H [Automated 777-3) message] The system which generated this result transmit mendoza reference range : 150 - 328 10*3/ ?L. The reference range was not u sed to interpret th is result as normal/abnormal . MPV (test code = 9.4 fL 9.8-13 L 47659-9) NRBC/100 WBC (test See_Comment [Automat ed code = 3464348454) message] The system which generated this result transmit mendoza reference range : 0.0 - 10.0 /100 WBCs. The reference range was not used to interpret this result as normal/abnormal . NRBC x10^3 (test code See_Comment [Auto mated = 4123412282) message] The system which generated this result transmit mendoza reference range : 10*3/?L. The reference range was not used to interpret this result as normal/abnormal . GRAN MAT (NEUT) % 87.8 % (test code = 770-8) IMM GRAN % (test code 0.60 % = 1627975124) LYMPH % (test code = 9.0 % 736-9) MONO % (test code = 2.3 % 5905-5) EOS % (test code = 0.0 % 713-8) BASO % (test code = 0.3 % 706-2) GRAN MAT x10^3(ANC) 10.48 10*3/uL 1.99-6.95 H (test code = 1159373345) IMM GRAN x10^3 (test 0.07 10*3/uL 0-0.06 H code = 4461135548) LYMPH x10^3 (test code 1.07 10*3/uL 1.09-3.23 L = 731-0) MONO x10^3 (test code 0.27 10*3/uL 0.36-1.02 L = 742-7) EOS x10^3 (test code = 0.06-0.53 L 711-2) BASO x10^3 (test code 0.03 10*3/uL 0.01-0.09 = 704-7) Lab Interpretation Abnormal (test code = 39039-4) [facility] GLUCOSE (AUTOMATED)2022-04-25 09:13:04 Test Item Value Reference Range Interpretation Comments POCT GLU (test code = 0880421480) 309 mg/dL 70-110 H Lab Interpretation (test code = Abnormal 93184-9) [facility] GLUCOSE (AUTOMATED)2022-04-25 09:13:04 Test Item Value Reference Range Interpretation Comments POCT GLU (test code = 2780203815) 309 mg/dL 70-110 H Lab Interpretation (test code = Abnormal 13533-5) [facility] GLUCOSE (AUTOMATED)2022-04-25 06:14:35 Test Item Value Reference Range Interpretation Comments POCT GLU (test code = 9410788922) 338 mg/dL 70-110 H Lab Interpretation (test code = Abnormal 58458-8) [facility] GLUCOSE (AUTOMATED)2022-04-25 06:14:35 Test Item Value Reference Range Interpretation Comments POCT GLU (test code = 2470183389) 338 mg/dL 70-110 H Lab Interpretation (test code = Abnormal 88951-4) [facility] GLUCOSE (AUTOMATED)2022-04-25 02:01:34 Test Item Value Reference Range Interpretation Comments POCT GLU (test code = 0150459888) 302 mg/dL 70-110 H Lab Interpretation (test code = Abnormal 06460-0) [facility] GLUCOSE (AUTOMATED)2022-04-25 02:01:34 Test Item Value Reference Range Interpretation Comments POCT GLU (test code = 5526547546) 302 mg/dL 70-110 H Lab Interpretation (test code = Abnormal 55236-9) [facility] GLUCOSE (AUTOMATED)2022-04-24 23:19:05 Test Item Value Reference Range Interpretation Comments POCT GLU (test code = 5398036515) 343 mg/dL 70-110 H Lab Interpretation (test code = Abnormal 34540-9) [facility] GLUCOSE (AUTOMATED)2022-04-24 23:19:05 Test Item Value Reference Range Interpretation Comments POCT GLU (test code = 8481018020) 343 mg/dL 70-110 H Lab Interpretation (test code = Abnormal 85505-8) [facility] GLUCOSE (AUTOMATED)2022-04-24 21:21:09 Test Item Value Reference Range Interpretation Comments POCT GLU (test code = 0659864007) 342 mg/dL 70-110 H Lab Interpretation (test code = Abnormal 56786-2) [facility] GLUCOSE (AUTOMATED)2022-04-24 21:21:09 Test Item Value Reference Range Interpretation Comments POCT GLU (test code = 0916568206) 342 mg/dL 70-110 H Lab Interpretation (test code = Abnormal 87880-9) [facility] GLUCOSE (AUTOMATED)2022-04-24 16:18:05 Test Item Value Reference Range Interpretation Comments POCT GLU (test code = 7177987108) 360 mg/dL 70-110 H Lab Interpretation (test code = Abnormal 23978-6) [facility] GLUCOSE (AUTOMATED)2022-04-24 16:18:05 Test Item Value Reference Range Interpretation Comments POCT GLU (test code = 6548386102) 360 mg/dL 70-110 H Lab Interpretation (test code = Abnormal 75499-6) [facility] GLUCOSE (AUTOMATED)2022-04-24 08:48:15 Test Item Value Reference Range Interpretation Comments POCT GLU (test code = 9820003228) 296 mg/dL 70-110 H Lab Interpretation (test code = Abnormal 25953-2) [facility] GLUCOSE (AUTOMATED)2022-04-24 08:48:15 Test Item Value Reference Range Interpretation Comments POCT GLU (test code = 9330933270) 296 mg/dL 70-110 H Lab Interpretation (test code = Abnormal 14021-0) [facility] GLUCOSE (AUTOMATED)2022-04-24 05:54:32 Test Item Value Reference Range Interpretation Comments POCT GLU (test code = 1011207474) 320 mg/dL 70-110 H Lab Interpretation (test code = Abnormal 73192-3) [facility] GLUCOSE (AUTOMATED)2022-04-24 05:54:32 Test Item Value Reference Range Interpretation Comments POCT GLU (test code = 7943526506) 320 mg/dL 70-110 H Lab Interpretation (test code = Abnormal 87753-5) [facility] GLUCOSE (AUTOMATED)2022-04-24 01:35:34 Test Item Value Reference Range Interpretation Comments POCT GLU (test code = 7619685440) 315 mg/dL 70-110 H Lab Interpretation (test code = Abnormal 60212-2) [facility] GLUCOSE (AUTOMATED)2022-04-24 01:35:34 Test Item Value Reference Range Interpretation Comments POCT GLU (test code = 3637324554) 315 mg/dL 70-110 H Lab Interpretation (test code = Abnormal 51807-0) [facility] GLUCOSE (AUTOMATED)2022-04-23 23:15:58 Test Item Value Reference Range Interpretation Comments POCT GLU (test code = 7845389387) 295 mg/dL 70-110 H Lab Interpretation (test code = Abnormal 44911-8) [facility] GLUCOSE (AUTOMATED)2022-04-23 23:15:58 Test Item Value Reference Range Interpretation Comments POCT GLU (test code = 7115725745) 295 mg/dL 70-110 H Lab Interpretation (test code = Abnormal 43538-0) [facility] GLUCOSE (AUTOMATED)2022-04-23 22:24:42 Test Item Value Reference Range Interpretation Comments POCT GLU (test code = 5578421143) 405 mg/dL 70-110 H Lab Interpretation (test code = Abnormal 98072-6) [facility] GLUCOSE (AUTOMATED)2022-04-23 22:24:42 Test Item Value Reference Range Interpretation Comments POCT GLU (test code = 1324133025) 405 mg/dL 70-110 H Lab Interpretation (test code = Abnormal 33607-4) [facility] [id number] 21:12:33 Test Item Value Reference Range Interpretation Comments PTH-INTACT (test code = 38.0 pg/mL 7999 8604632328) PTH-CA Interpretation PTH IS Appropriate (test code = for Calcium 2858631655) CALCIUM (test code = 9.5 mg/dL 8.6-10.6 4124866740) [facility] [id number] 21:12:33 Test Item Value Reference Range Interpretation Comments PTH-INTACT (test code = 38.0 pg/mL 1730034808) PTH-CA Interpretation PTH IS Appropriate (test code = for Calcium 1121205892) CALCIUM (test code = 9.5 mg/dL 8.6-10.6 7345137266) [facility] GLUCOSE (AUTOMATED)2022-04-23 14:51:25 Test Item Value Reference Range Interpretation Comments POCT GLU (test code = 8655246558) 478 mg/dL 70-110 HH Lab Interpretation (test code = Abnormal 89737-6) [facility] GLUCOSE (AUTOMATED)2022-04-23 14:51:25 Test Item Value Reference Range Interpretation Comments POCT GLU (test code = 2876321047) 478 mg/dL 70-110 HH Lab Interpretation (test code = Abnormal 46452-0) [facility] GLUCOSE (AUTOMATED)2022-04-23 13:38:46 Test Item Value Reference Range Interpretation Comments POCT GLU (test code = 7645762454) 495 mg/dL 70-110 HH Lab Interpretation (test code = Abnormal 32459-1) [facility] GLUCOSE (AUTOMATED)2022-04-23 13:38:46 Test Item Value Reference Range Interpretation Comments POCT GLU (test code = 1105084009) 495 mg/dL 70-110 HH Lab Interpretation (test code = Abnormal 91948-0) [facility] GLUCOSE (AUTOMATED)2022-04-23 08:53:10 Test Item Value Reference Range Interpretation Comments POCT GLU (test code = 8135235997) 394 mg/dL 70-110 H Lab Interpretation (test code = Abnormal 47242-6) [facility] GLUCOSE (AUTOMATED)2022-04-23 08:53:10 Test Item Value Reference Range Interpretation Comments POCT GLU (test code = 6992388503) 394 mg/dL 70-110 H Lab Interpretation (test code = Abnormal 74212-2) [facility] GLUCOSE (AUTOMATED)2022-04-23 03:33:59 Test Item Value Reference Range Interpretation Comments POCT GLU (test code = 2565746193) 338 mg/dL 70-110 H Lab Interpretation (test code = Abnormal 28595-1) [facility] GLUCOSE (AUTOMATED)2022-04-23 03:33:59 Test Item Value Reference Range Interpretation Comments POCT GLU (test code = 4879340198) 338 mg/dL 70-110 H Lab Interpretation (test code = Abnormal 10236-6) [facility] CONSULT [id number] 22:39:38 ABSOLUTE NEUTROPHILIA AND EOSINOPHILIA CONSISTENT WITH PATIENT'S HISTORY OF INFECTION. THROMBOCYTOSIS. NORMOCYTIC NORMOCHROMIC ANEMIA.[facility] CONSULT [id number] 22:39:38ABSOLUTE NEUTROPHILIA AND EOSINOPHILIA CONSISTENT WITH PATIENT'S HISTORY OF INFECTION. THROMBOCYTOSIS. NORMOCYTIC NORMOCHROMIC ANEMIA.[facility] GLUCOSE (AUTOMATED)2022-04-22 21:53:55 Test Item Value Reference Range Interpretation Comments POCT GLU (test code = 6297850099) 353 mg/dL 70-110 H Lab Interpretation (test code = Abnormal 20727-0) [facility] GLUCOSE (AUTOMATED)2022-04-22 21:53:55 Test Item Value Reference Range Interpretation Comments POCT GLU (test code = 0056734091) 353 mg/dL 70-110 H Lab Interpretation (test code = Abnormal 75469-6) [facility]-22 21:42:17 Test Item Value Reference Range Interpretation Comments Height (test code = in 0500346312) Weight (test code = lbs 8518565557) Systolic BP (test code = mmHg 6348872411) Diastolic BP (test code mmHg = 4212627553) Heart Rate (test code = bpm 3605153402) BSA (test code = 2.03 m2 6529697154) LVIDD (test code = 4.30 cm 2369752469) Left Ventricular End 84.4 mL Diastolic Volume by Teichholz Method (test code = 6829532) IVS (test code = 1.53 cm 5077350453) Interventricular Septum 1.53 cm Diastolic Thickness by 2D (test code = 8043003) LVPWD (test code = 1.40 cm 2813653950) PW (test code = 1.40 cm 0.6-1.1 5138258559) EF(Teich) (test code = 66.30 % 7796632399) LVIDS (test code = 2.80 cm 6627636858) Left Ventricular End 28.4 mL Systolic Volume by Teichholz Method (test code = 5132286) FS (test code = 36 % 1025941766) EF - 2D (test code = 66.30 % 89943189) LVOT diameter (test code 2.11 cm = 0340893700) LVOT area (test code = 3.50 cm2 3842799507) ACS (test code = 2.05 cm 5921484062) Ao root diam (test code 3.60 cm = 6647084432) Aortic root (test code = 3.6 cm 2553781735) Ao root annulus (test 3.6 cm code = 9478696182) LA size (test code = 4.1 cm 1984958845) E wave decelartion time 0.25 s (test code = 3656993782) MV Peak E Jed (test code 87.9 cm/s = 0840184977) MV Peak A Jed (test code 98.5 cm/s = 3985285212) E/A ratio (test code = ratio 7895150650) MV Prop V (test code = 54.80 cm/s 2200117248) Tapse (test code = 2.23 cm 9051840187) LVOT stroke volume (test 72.30 cm3 code = 5818636023) LVOT peak jed (test code 90.6 cm/s = 1370472716) LVOT mn grad (test code mmHg = 7555938031) AV LVOT peak gradient mmHg (test code = 1722334276) LVOT peak VTI (test code 20.8 cm = 4500461238) LV V1 mean (test code = 58.10 cm/s 2273934898) Aortic valve mean 78.9 cm/s velocity (test code = 9481787182) Ao peak jed (test code = 131.1 cm/s 7413752859) Ao VTI (test code = 24.9 cm 2802069454) AV area by cont VTI 2.9 cm2 (test code = 5994310075) AV area peak jed (test 2.4 cm2 code = 7704973299) Ao max PG (test code = 6.90 mm[Hg] 3420729889) AV peak gradient (test mmHg code = 8059307663) AV valve area (test code 2.90 cm2 = 5805212150) AV mean gradient (test mmHg code = 8436221681) Radiology Study observation (narrative) (test code = 52645-6) OSBALDO (test code = OSBALDO) ?Left?Ventricle: Left ventricle size is normal. Mildly increased wall thickness. Normal wall motion. Normal systolic function with a visually estimated EF of 60 - 65%. There is impaired relaxation. ?Tricuspid?Valve: Insufficient regurgant jet to estimate RVSP. ?RA pressure is 0-5 mmHg. ?Left?Atrium: Left atrium is mildly dilated. Atrial septal aneurysm present. ?Aorta: Mildly enlarged aortic root (3.6 cm). ?Pericardium: Trivial pericardial effusion present. Left VentricleLeft ventricle size is normal. Mildly increased wall thickness. Normal wall motion. Normal systolic function with a visually estimated EF of 60 - 65%. There is impaired relaxation.Right VentricleRight ventricle size is normal. Normal systolic function.Left AtriumLeft atrium is mildly dilated. Atrial septal aneurysm present.Right AtriumRight atrium size is normal.Mitral ValveMild mitral annular calcification. Trace transvalvular regurgitation.Tricusp id ValveTricuspid valve structure is normal. Trace transvalvular regurgitation. Insufficient regurgant jet to estimate RVSP. RA pressure is 0-5 mmHg.Aortic ValveTricuspid.Pulmon ic ValvePulmonic valve is normal in structure and function. Trace transvalvular regurgitation.Ascendi ng AortaMildly enlarged aortic root (3.6 cm).PericardiumTrivia l pericardial effusion present.Study DetailsStudy quality was adequate. A complete echocardiogram was performed using 2D, color flow Doppler and spectral Doppler. The apical, parasternal and subcostal views were obtained. [facility] 21:42:17 Test Item Value Reference Range Interpretation Comments Height (test code = in 2452673181) Weight (test code = lbs 5953864553) Systolic BP (test code = mmHg 2210301871) Diastolic BP (test code mmHg = 6065322818) Heart Rate (test code = bpm 3462813417) BSA (test code = 2.03 m2 6641993528) LVIDD (test code = 4.30 cm 5463678346) Left Ventricular End 84.4 mL Diastolic Volume by Teichholz Method (test code = 7790122) IVS (test code = 1.53 cm 2786937076) Interventricular Septum 1.53 cm Diastolic Thickness by 2D (test code = 9112204) LVPWD (test code = 1.40 cm 2889617929) PW (test code = 1.40 cm 0.6-1.5 4269363757) EF(Teich) (test code = 66.30 % 4792010285) LVIDS (test code = 2.80 cm 5131868684) Left Ventricular End 28.4 mL Systolic Volume by Teichholz Method (test code = 0765120) FS (test code = 36 % 7925806242) EF - 2D (test code = 66.30 % 68042200) LVOT diameter (test code 2.11 cm = 6640073491) LVOT area (test code = 3.50 cm2 0039949705) ACS (test code = 2.05 cm 9646622589) Ao root diam (test code 3.60 cm = 2391210538) Aortic root (test code = 3.6 cm 0755725965) Ao root annulus (test 3.6 cm code = 1179607235) LA size (test code = 4.1 cm 7943564679) E wave decelartion time 0.25 s (test code = 4397608212) MV Peak E Jed (test code 87.9 cm/s = 9393914079) MV Peak A Jed (test code 98.5 cm/s = 3465308373) E/A ratio (test code = ratio 9676210290) MV Prop V (test code = 54.80 cm/s 4559370319) Tapse (test code = 2.23 cm 4723299519) LVOT stroke volume (test 72.30 cm3 code = 4887607789) LVOT peak jed (test code 90.6 cm/s = 9577481156) LVOT mn grad (test code mmHg = 5488672631) AV LVOT peak gradient mmHg (test code = 7886300620) LVOT peak VTI (test code 20.8 cm = 8508679524) LV V1 mean (test code = 58.10 cm/s 9017310710) Aortic valve mean 78.9 cm/s velocity (test code = 4297946321) Ao peak jed (test code = 131.1 cm/s 5190282181) Ao VTI (test code = 24.9 cm 7614735169) AV area by cont VTI 2.9 cm2 (test code = 9148833679) AV area peak jed (test 2.4 cm2 code = 7769083010) Ao max PG (test code = 6.90 mm[Hg] 5304292253) AV peak gradient (test mmHg code = 0376574729) AV valve area (test code 2.90 cm2 = 7983261173) AV mean gradient (test mmHg code = 5484660901) Radiology Study observation (narrative) (test code = 07336-6) OSBALDO (test code = OSBALDO) ?Left?Ventricle: Left ventricle size is normal. Mildly increased wall thickness. Normal wall motion. Normal systolic function with a visually estimated EF of 60 - 65%. There is impaired relaxation. ?Tricuspid?Valve: Insufficient regurgant jet to estimate RVSP. ?RA pressure is 0-5 mmHg. ?Left?Atrium: Left atrium is mildly dilated. Atrial septal aneurysm present. ?Aorta: Mildly enlarged aortic root (3.6 cm). ?Pericardium: Trivial pericardial effusion present. Left VentricleLeft ventricle size is normal. Mildly increased wall thickness. Normal wall motion. Normal systolic function with a visually estimated EF of 60 - 65%. There is impaired relaxation.Right VentricleRight ventricle size is normal. Normal systolic function.Left AtriumLeft atrium is mildly dilated. Atrial septal aneurysm present.Right AtriumRight atrium size is normal.Mitral ValveMild mitral annular calcification. Trace transvalvular regurgitation.Tricusp id ValveTricuspid valve structure is normal. Trace transvalvular regurgitation. Insufficient regurgant jet to estimate RVSP. RA pressure is 0-5 mmHg.Aortic ValveTricuspid.Pulmon ic ValvePulmonic valve is normal in structure and function. Trace transvalvular regurgitation.Ascendi ng AortaMildly enlarged aortic root (3.6 cm).PericardiumTrivia l pericardial effusion present.Study DetailsStudy quality was adequate. A complete echocardiogram was performed using 2D, color flow Doppler and spectral Doppler. The apical, parasternal and subcostal views were obtained. [facility] GLUCOSE (AUTOMATED)2022-04-22 19:13:12 Test Item Value Reference Range Interpretation Comments POCT GLU (test code = 8411465476) 307 mg/dL 70-110 H Lab Interpretation (test code = Abnormal 77421-1) [facility] GLUCOSE (AUTOMATED)2022-04-22 19:13:12 Test Item Value Reference Range Interpretation Comments POCT GLU (test code = 4981824694) 307 mg/dL 70-110 H Lab Interpretation (test code = Abnormal 77248-4) [facility], [id number] 18:52:18 Test Item Value Reference Range Interpretation Comments VIT D 25OH (test code = 19 ng/mL 25-80 L 61762-2) OSBALDO (test code = OSBALDO) Deficiency: <20 ng/mLInsufficiency: 20-24 ng/mLOptimal: 25-80 ng/mL Lab Interpretation (test Abnormal code = 90624-8) [facility], [id number] 18:52:18 Test Item Value Reference Range Interpretation Comments VIT D 25OH (test code = 19 ng/mL 25-80 L 47939-1) OSBALDO (test code = OSBALDO) Deficiency: <20 ng/mLInsufficiency: 20-24 ng/mLOptimal: 25-80 ng/mL Lab Interpretation (test Abnormal code = 59165-3) [facility] GLUCOSE (AUTOMATED)2022-04-22 13:14:31 Test Item Value Reference Range Interpretation Comments POCT GLU (test code = 5288462794) 236 mg/dL 70-110 H Lab Interpretation (test code = Abnormal 70466-5) [facility] GLUCOSE (AUTOMATED)2022-04-22 13:14:31 Test Item Value Reference Range Interpretation Comments POCT GLU (test code = 3887363085) 236 mg/dL 70-110 H Lab Interpretation (test code = Abnormal 48715-4) [facility] [id number] 13:03:45 Test Item Value Reference Interpretation Comments Range TROPONIN I (test See_Comment [Automated code = 8600611904) message] The system which generated this result transmitted reference range : <=0.034. The reference range was not used to interpret this result as normal/abnormal . OSBALDO (test code = Reference (Normal) OSBALDO) Range (defined by the 99th percentile reference limit): <= 0.034 ng/mL Note: Cardiac troponin begins to rise 3-4 hours after the onset of ischemia. Repeat in 4-6 hours if the sample was drawn within 3-4 hours of the onset of the symptom and found normal. Diagnosis of myocardial injury is made with acute changes in cTn concentrations with at least one serial sample above the 99th percentile upper reference limit (URL), taken together with the patient's clinical presentation. Biotin has been reported to cause a negative bias, interpret results relative to patient's use of biotin. Lab Interpretation Normal (test code = 87974-9) [facility] [id number] 13:03:45 Test Item Value Reference Interpretation Comments Range TROPONIN I (test See_Comment [Automated code = 6058225446) message] The system which generated this result transmitted reference range : <=0.034. The reference range was not used to interpret this result as normal/abnormal . OSBALDO (test code = Reference (Normal) OSBALDO) Range (defined by the 99th percentile reference limit): <= 0.034 ng/mL Note: Cardiac troponin begins to rise 3-4 hours after the onset of ischemia. Repeat in 4-6 hours if the sample was drawn within 3-4 hours of the onset of the symptom and found normal. Diagnosis of myocardial injury is made with acute changes in cTn concentrations with at least one serial sample above the 99th percentile upper reference limit (URL), taken together with the patient's clinical presentation. Biotin has been reported to cause a negative bias, interpret results relative to patient's use of biotin. Lab Interpretation Normal (test code = 98007-5) [facility] GLUCOSE (AUTOMATED)2022-04-22 12:44:36 Test Item Value Reference Range Interpretation Comments POCT GLU (test code = 6904650998) 339 mg/dL 70-110 H Lab Interpretation (test code = Abnormal 70190-4) [facility] GLUCOSE (AUTOMATED)2022-04-22 12:44:36 Test Item Value Reference Range Interpretation Comments POCT GLU (test code = 7370742209) 339 mg/dL 70-110 H Lab Interpretation (test code = Abnormal 02424-6) [facility] [id number] 11:12:35 Test Item Value Reference Range Interpretation Comments IRON (test code = 8979757066) 35 ug/dL 50-160 L TIBC (test code = 8103898430) 225 ug/dL 250-410 L % FE SAT (test code = 1493548207) 16 % 20-50 L Lab Interpretation (test code = Abnormal 06071-6) [facility] Tyler[facility] [id number] 11:12:35 Test Item Value Reference Range Interpretation Comments IRON (test code = 9422266843) 35 ug/dL 50-160 L TIBC (test code = 1282617790) 225 ug/dL 250-410 L % FE SAT (test code = 1201985000) 16 % 20-50 L Lab Interpretation (test code = Abnormal 30441-7) [facility] TylerProthrombin [facility] / [id number] 11:03:54 Test Item Value Reference Range Interpretation Comments PROTIME PATIENT (test See_Comment [Auto mated message] code = 5964-2) The system [employer] generated this result transmitted ref erence range: 12.0 - 1 4.7 Seconds. The re ference range was not u sed to interpret this result as normal/abnor mal. INR (test code = 6301-6) Nor mal INR <1.1; Warfarin Therap eutic range 2.0 to 3. 0 or 2.5 to 3.5, dep ending upon the indica tions. Lab Interpretation (test Normal code = 50696-6) [facility] Tyler[facility]th[facility] / [id number] 11:03:54 Test Item Value Reference Range Interpretation Comments PROTIME PATIENT (test See_Comment [Auto mated message] code = 5964-2) The system [employer] generated this result transmitted ref erence range: 12.0 - 1 4.7 Seconds. The re ference range was not u sed to interpret this result as normal/abnor mal. INR (test code = 6301-6) Nor mal INR <1.1; Warfarin Therap eutic range 2.0 to 3. 0 or 2.5 to 3.5, dep ending upon the indica tions. Lab Interpretation (test Normal code = 33935-9) [facility]GLYCOSYL[facility] HEMOGLOBIN (A1C)2022-04-22 08:41:01 Test Item Value Reference Range Interpretation Comments HGB A1C (test code = 8.9 % 4-5.7 H 4548-4) OSBALDO (test code = OSBALDO) Reference RangesNormal: <5.7%Prediabetes: 5.7 - 6.4%Diabetes: > 6.5% Lab Interpretation (test Abnormal code = 30801-5) [facility] (A1C)2022-04-22 08:41:01 Test Item Value Reference Range Interpretation Comments HGB A1C (test code = 8.9 % 4-5.7 H 4548-4) OSBALDO (test code = OSBALDO) Reference RangesNormal: <5.7%Prediabetes: 5.7 - 6.4%Diabetes: > 6.5% Lab Interpretation (test Abnormal code = 76734-7) [facility] [id number] 00:25:04 Test Item Value Reference Interpretation Comments Range TROPONIN I (test See_Comment [Automated code = 2379964953) message] The system which generated this result transmitted reference range : <=0.034. The reference range was not used to interpret this result as normal/abnormal . OSBALDO (test code = Reference (Normal) OSBALDO) Range (defined by the 99th percentile reference limit): <= 0.034 ng/mL Note: Cardiac troponin begins to rise 3-4 hours after the onset of ischemia. Repeat in 4-6 hours if the sample was drawn within 3-4 hours of the onset of the symptom and found normal. Diagnosis of myocardial injury is made with acute changes in cTn concentrations with at least one serial sample above the 99th percentile upper reference limit (URL), taken together with the patient's clinical presentation. Biotin has been reported to cause a negative bias, interpret results relative to patient's use of biotin. Lab Interpretation Normal (test code = 08541-7) [facility] [id number] 00:25:04 Test Item Value Reference Interpretation Comments Range TROPONIN I (test See_Comment [Automated code = 1450298534) message] The system which generated this result transmitted reference range : <=0.034. The reference range was not used to interpret this result as normal/abnormal . OSBALDO (test code = Reference (Normal) OSBALDO) Range (defined by the 99th percentile reference limit): <= 0.034 ng/mL Note: Cardiac troponin begins to rise 3-4 hours after the onset of ischemia. Repeat in 4-6 hours if the sample was drawn within 3-4 hours of the onset of the symptom and found normal. Diagnosis of myocardial injury is made with acute changes in cTn concentrations with at least one serial sample above the 99th percentile upper reference limit (URL), taken together with the patient's clinical presentation. Biotin has been reported to cause a negative bias, interpret results relative to patient's use of biotin. Lab Interpretation Normal (test code = 99355-7) [facility] TylerN-[facility]MINAL [id number] 00:21:41 Test Item Value Reference Range Interpretation Comments NT-proBNP (test code 2770 pg/mL See_Comment H [Autom ated = 8106900412) message] The system which generated this result transmitted reference range : <=125. The reference range was not used to interpret this result as normal/abnormal . OSBALDO (test code = OSBALDO) Biotin has been reported to cause a negative bias, interpret results relative to patient's use of biotin. Lab Interpretation Abnormal (test code = 20872-1) [facility] Tyler[facility] [id number] 00:21:41 Test Item Value Reference Range Interpretation Comments NT-proBNP (test code 2770 pg/mL See_Comment H [Autom ated = 1440501172) message] The system which generated this result transmitted reference range : <=125. The reference range was not used to interpret this result as normal/abnormal . OSBALDO (test code = OSBALDO) Biotin has been reported to cause a negative bias, interpret results relative to patient's use of biotin. Lab Interpretation Abnormal (test code = 93108-4) [facility] (NA, K, CL, CO2, GLUCOSE, BUN, CREATININE, CA)2022-04-22 00:12:38 Test Item Value Reference Range Interpretation Comments NA (test code = 136 mmol/L 135-145 5669088342) K (test code = 5.1 mmol/L 3.5-5 H 3085894718) CL (test code = 97 mmol/L 98-108 L 2766757684) CO2 TOTAL (test code = 28 mmol/L 23-31 9284514324) AGAP (test code = 2-16 2224894922) BUN (test code = 58 mg/dL 7-23 H 1127430234) GLUCOSE (test code = 183 mg/dL 70-110 H 6813769440) CREATININE (test code = 2.46 mg/dL 0.6-1.25 H 3532954314) CALCIUM (test code = 9.5 mg/dL 8.6-10.6 2553791582) eGFR (test code = mL/min/1.73m2 2107339814) OSBALDO (test code = OSBALDO) Association of Glomerular Filtration Rate (GFR) and Staging of Kidney Disease* + --+ --+ ------+| GFR (mL/min/1.73 m2) ?| With Kidney Damage ?| ?Without Kidney Damage+ --------+ --------+ +| ?>90 ?| ?Stage one ?| ? Normal ?+ ---+ ---+ -------+| ?60-89 ?| ?Stage two ?| ? Decreased GFR ? + --+ --+ ------+| ?30-59 ?| ?Stage three ?| ? Stage three ? + --+ --+ ------+| ?15-29 ?| ?Stage four ? | ? Stage four ?+ ---+ ---+ -------+| ?<15 (or dialysis) ? ?| ?Stage five ? | ? Stage five ?+ ---+ ---+ -------+ *Each stage assumes the associated GFR level has been in effect for at least three months. ?Stages 1 to 5, with or without kidney disease, indicate chronic kidney disease. Notes: Determination of stages one and two (with eGFR >59mL/min/1.73 m2) requires estimation of kidney damage for at least three months as defined by structural or functional abnormalities of the kidney, manifested by either:Pathological abnormalities or Markers of kidney damage (including abnormalities in the composition of the blood or urine or abnormalities in imaging tests). Lab Interpretation Abnormal (test code = 05408-4) [facility] METABOLIC PANEL (NA, K, CL, CO2, GLUCOSE, BUN, CREATININE, CA)2022-04-22 00:12:38 Test Item Value Reference Range Interpretation Comments NA (test code = 136 mmol/L 135-145 1004986872) K (test code = 5.1 mmol/L 3.5-5 H 8766525116) CL (test code = 97 mmol/L 98-108 L 5885504915) CO2 TOTAL (test code = 28 mmol/L 23-31 9765683116) AGAP (test code = 2-16 8854419992) BUN (test code = 58 mg/dL 7-23 H 7298210245) GLUCOSE (test code = 183 mg/dL 70-110 H 3636386190) CREATININE (test code = 2.46 mg/dL 0.6-1.25 H 6264400497) CALCIUM (test code = 9.5 mg/dL 8.6-10.6 4389213520) eGFR (test code = mL/min/1.73m2 5961777403) OSBALDO (test code = OSBALDO) Association of Glomerular Filtration Rate (GFR) and Staging of Kidney Disease* + --+ --+ ------+| GFR (mL/min/1.73 m2) ?| With Kidney Damage ?| ?Without Kidney Damage+ --------+ --------+ +| ?>90 ?| ?Stage one ?| ? Normal ?+ ---+ ---+ -------+| ?60-89 ?| ?Stage two ?| ? Decreased GFR ? + --+ --+ ------+| ?30-59 ?| ?Stage three ?| ? Stage three ? + --+ --+ ------+| ?15-29 ?| ?Stage four ? | ? Stage four ?+ ---+ ---+ -------+| ?<15 (or dialysis) ? ?| ?Stage five ? | ? Stage five ?+ ---+ ---+ -------+ *Each stage assumes the associated GFR level has been in effect for at least three months. ?Stages 1 to 5, with or without kidney disease, indicate chronic kidney disease. Notes: Determination of stages one and two (with eGFR >59mL/min/1.73 m2) requires estimation of kidney damage for at least three months as defined by structural or functional abnormalities of the kidney, manifested by either:Pathological abnormalities or Markers of kidney damage (including abnormalities in the composition of the blood or urine or abnormalities in imaging tests). Lab Interpretation Abnormal (test code = 05788-5) [facility] WITH [id number] 00:01:38 Test Item Value Reference Range Interpretation Comments WBC (test code = See_Comment H [Automated 6690-2) message] The sy stem which generated this result transmitted reference range : 4.20 - 10.70 10*3/?L. The reference range was not used to interpret this result as normal/abnormal . RBC (test code = See_Comment L [Automated 789-8) message] The sy stem which generated this result transmitted reference range : 4.26 - 5.52 10*6/?L. The reference range was not used to interpret this result as normal/abnormal . HGB (test code = 9.0 g/dL 12.2-16.4 L 718-7) HCT (test code = 27.6 % 38.4-49.3 L 4544-3) MCV (test code = 84.1 fL 81.7-95.6 787-2) MCH (test code = 27.4 pg 26.1-32.7 785-6) MCHC (test code = 32.6 g/dL 31.2-35 786-4) RDW-SD (test code = 50.0 fL 38.5-51.6 30696-9) RDW-CV (test code = 16.3 % 12.1-15.4 H 788-0) PLT (test code = See_Comment H [Automated 777-3) message] The sy stem which generated this result transmitted reference range : 150 - 328 10*3/ ?L. The reference r stevan was not used to interpret this result as normal/abnormal . MPV (test code = 9.3 fL 9.8-13 L 40133-1) NRBC/100 WBC (test See_Comment [Automat ed code = 4036989451) message] The system which generated this result transmitted reference range : 0.0 - 10.0 /100 WBCs. The refer ence range was not u sed to interpret th is result as normal/abnormal . NRBC x10^3 (test code See_Comment [Auto mated = 8408747247) message] The s ystem which generated this result transmitted reference range : 10*3/?L. The reference range was not used to interpret this result as normal/abnormal . GRAN MAT (NEUT) % 63.3 % (test code = 770-8) IMM GRAN % (test code 0.50 % = 8345222083) LYMPH % (test code = 22.5 % 736-9) MONO % (test code = 6.4 % 5905-5) EOS % (test code = 6.4 % 713-8) BASO % (test code = 0.9 % 706-2) GRAN MAT x10^3(ANC) 8.25 10*3/uL 1.99-6.95 H (test code = 8013089048) IMM GRAN x10^3 (test 0.07 10*3/uL 0-0.06 H code = 9395871347) LYMPH x10^3 (test code 2.93 10*3/uL 1.09-3.23 = 731-0) MONO x10^3 (test code 0.84 10*3/uL 0.36-1.02 = 742-7) EOS x10^3 (test code = 0.84 10*3/uL 0.06-0.53 H 711-2) BASO x10^3 (test code 0.12 10*3/uL 0.01-0.09 H = 704-7) Lab Interpretation Abnormal (test code = 73128-4) [facility] WITH [id number] 00:01:38 Test Item Value Reference Range Interpretation Comments WBC (test code = See_Comment H [Automated 6690-2) message] The sy stem which generated this result transmitted reference range : 4.20 - 10.70 10*3/?L. The reference range was not used to interpret this result as normal/abnormal . RBC (test code = See_Comment L [Automated 789-8) message] The sy stem which generated this result transmitted reference range : 4.26 - 5.52 10*6/?L. The reference range was not used to interpret this result as normal/abnormal . HGB (test code = 9.0 g/dL 12.2-16.4 L 718-7) HCT (test code = 27.6 % 38.4-49.3 L 4544-3) MCV (test code = 84.1 fL 81.7-95.6 787-2) MCH (test code = 27.4 pg 26.1-32.7 785-6) MCHC (test code = 32.6 g/dL 31.2-35 786-4) RDW-SD (test code = 50.0 fL 38.5-51.6 52663-9) RDW-CV (test code = 16.3 % 12.1-15.4 H 788-0) PLT (test code = See_Comment H [Automated 777-3) message] The sy stem which generated this result transmitted reference range : 150 - 328 10*3/ ?L. The reference r stevan was not used to interpret this result as normal/abnormal . MPV (test code = 9.3 fL 9.8-13 L 77150-6) NRBC/100 WBC (test See_Comment [Automat ed code = 7844916269) message] The system which generated this result transmitted reference range : 0.0 - 10.0 /100 WBCs. The refer ence range was not u sed to interpret th is result as normal/abnormal . NRBC x10^3 (test code See_Comment [Auto mated = 4732774140) message] The s ystem which generated this result transmitted reference range : 10*3/?L. The reference range was not used to interpret this result as normal/abnormal . GRAN MAT (NEUT) % 63.3 % (test code = 770-8) IMM GRAN % (test code 0.50 % = 5112283843) LYMPH % (test code = 22.5 % 736-9) MONO % (test code = 6.4 % 5905-5) EOS % (test code = 6.4 % 713-8) BASO % (test code = 0.9 % 706-2) GRAN MAT x10^3(ANC) 8.25 10*3/uL 1.99-6.95 H (test code = 6746950824) IMM GRAN x10^3 (test 0.07 10*3/uL 0-0.06 H code = 7889572690) LYMPH x10^3 (test code 2.93 10*3/uL 1.09-3.23 = 731-0) MONO x10^3 (test code 0.84 10*3/uL 0.36-1.02 = 742-7) EOS x10^3 (test code = 0.84 10*3/uL 0.06-0.53 H 711-2) BASO x10^3 (test code 0.12 10*3/uL 0.01-0.09 H = 704-7) Lab Interpretation Abnormal (test code = 73302-3) [facility]2022-08-16 09:16:00 Test Item Value Reference Range Interpretation Comments Glucose Lvl (test code = Glucose Lvl) 264 70-99 [place] 159572-08-16 09:16:00 Test Item Value Reference Range Interpretation Comments BUN (test code = BUN) 54 7-22 [place] [address]-08-16 09:16:00 Test Item Value Reference Range Interpretation Comments Creatinine Lvl (test code = Creatinine 3.77 0.50-1.40 Lvl) [place] [address]-08-16 09:16:00 Test Item Value Reference Range Interpretation Comments Sodium Lvl (test code = Sodium Lvl) 131 135-145 [place] 159572-08-16 09:16:00 Test Item Value Reference Range Interpretation Comments Potassium Lvl (test code = Potassium 3.9 3.5-5.1 Lvl) [place] 159572-08-16 09:16:00 Test Item Value Reference Range Interpretation Comments Chloride Lvl (test code = Chloride Lvl) 96 95-109 [place] [address]-08-16 09:16:00 Test Item Value Reference Range Interpretation Comments CO2 (test code = CO2) 24 24-32 [place] 159572-08-16 09:16:00 Test Item Value Reference Range Interpretation Comments Calcium Lvl (test code = Calcium Lvl) 8.6 8.5-10.5 [place] 159572-08-16 09:16:00 Test Item Value Reference Range Interpretation Comments AGAP (test code = AGAP) 14.9 10.0-20.0 [place] 159572-08-16 09:16:00 Test Item Value Reference Range Interpretation Comments eGFR (test code = eGFR) 18 [place] [address]-08-16 09:16:00 Test Item Value Reference Range Interpretation Comments WBC (test code = WBC) 12.8 3.7-10.4 [place] [address]-08-16 09:16:00 Test Item Value Reference Range Interpretation Comments RBC (test code = RBC) 4.04 4.70-6.10 [place] 324092-08-16 09:16:00 Test Item Value Reference Range Interpretation Comments Hgb (test code = Hgb) 11.1 14.0-18.0 [place] [address]-08-16 09:16:00 Test Item Value Reference Range Interpretation Comments Hct (test code = Hct) 33.6 42.0-54.0 [place] 324092-08-16 09:16:00 Test Item Value Reference Range Interpretation Comments MCV (test code = MCV) 83.4 80.0-94.0 [place] 324092-08-16 09:16:00 Test Item Value Reference Range Interpretation Comments MCH (test code = MCH) 27.6 pg 27.0-31.0 [place] 324092-08-16 09:16:00 Test Item Value Reference Range Interpretation Comments MCHC (test code = MCHC) 33.1 32.0-36.0 [place] 324092-08-16 09:16:00 Test Item Value Reference Range Interpretation Comments RDW (test code = RDW) 15.9 11.5-14.5 [place] 324092-08-16 09:16:00 Test Item Value Reference Range Interpretation Comments Platelet (test code = Platelet) 512 133-450 [facility] 09:16:00 Test Item Value Reference Range Interpretation Comments MPV (test code = MPV) 7.5 7.4-10.4 [facility]2022-08-15 08:43:00 Test Item Value Reference Range Interpretation Comments Phosphorus (test code = Phosphorus) 5.2 2.5-4.5 [place] 159572-08-15 08:43:00 Test Item Value Reference Range Interpretation Comments Magnesium Lvl (test code = Magnesium 2.6 1.8-2.4 Lvl) [place] 159572-08-15 08:43:00 Test Item Value Reference Range Interpretation Comments Glucose Lvl (test code = Glucose Lvl) 133 70-99 [place] 159572-08-15 08:43:00 Test Item Value Reference Range Interpretation Comments BUN (test code = BUN) 93 7-22 [place] 159572-08-15 08:43:00 Test Item Value Reference Range Interpretation Comments Creatinine Lvl (test code = Creatinine 5.58 0.50-1.40 Lvl) [place] 159572-08-15 08:43:00 Test Item Value Reference Range Interpretation Comments Sodium Lvl (test code = Sodium Lvl) 130 135-145 [place] 159572-08-15 08:43:00 Test Item Value Reference Range Interpretation Comments Potassium Lvl (test code = Potassium 4.2 3.5-5.1 Lvl) [place] 159572-08-15 08:43:00 Test Item Value Reference Range Interpretation Comments Chloride Lvl (test code = Chloride Lvl) 95 95-109 [place] 159572-08-15 08:43:00 Test Item Value Reference Range Interpretation Comments CO2 (test code = CO2) 22 24-32 [place] 159572-08-15 08:43:00 Test Item Value Reference Range Interpretation Comments AGAP (test code = AGAP) 17.2 10.0-20.0 [place] 159572-08-15 08:43:00 Test Item Value Reference Range Interpretation Comments Calcium Lvl (test code = Calcium Lvl) 8.8 8.5-10.5 [place] 159572-08-15 08:43:00 Test Item Value Reference Range Interpretation Comments B/C Ratio (test code = B/C Ratio) 17 1 6-25 [place] 159572-08-15 08:43:00 Test Item Value Reference Range Interpretation Comments Total Protein (test code = Total 7.1 6.4-8.4 Protein) [place] 159572-08-15 08:43:00 Test Item Value Reference Range Interpretation Comments Albumin Lvl (test code = Albumin Lvl) 2.1 3.5-5.0 [place] 159572-08-15 08:43:00 Test Item Value Reference Range Interpretation Comments Globulin (test code = Globulin) 5.0 2.7-4.2 [place] 159572-08-15 08:43:00 Test Item Value Reference Range Interpretation Comments A/G Ratio (test code = A/G Ratio) 0.4 1 0.7-1.6 [place] [address]-08-15 08:43:00 Test Item Value Reference Range Interpretation Comments ALT (test code = ALT) 28 <=65 [place] [address]-08-15 08:43:00 Test Item Value Reference Range Interpretation Comments AST (test code = AST) 16 <=37 [place] [address]-08-15 08:43:00 Test Item Value Reference Range Interpretation Comments Alk Phos (test code = Alk Phos) 163 39-136 [place] [address]-08-15 08:43:00 Test Item Value Reference Range Interpretation Comments Bili Total (test code = Bili Total) 0.7 0.2-1.3 [place] [address]-08-15 08:43:00 Test Item Value Reference Range Interpretation Comments eGFR (test code = eGFR) 11 [place] 324092-08-15 08:43:00 Test Item Value Reference Range Interpretation Comments WBC (test code = WBC) 13.9 3.7-10.4 [place] [address]-08-15 08:43:00 Test Item Value Reference Range Interpretation Comments RBC (test code = RBC) 3.84 4.70-6.10 [place] [address]-08-15 08:43:00 Test Item Value Reference Range Interpretation Comments Hgb (test code = Hgb) 11.0 14.0-18.0 [place] [address]-08-15 08:43:00 Test Item Value Reference Range Interpretation Comments Hct (test code = Hct) 31.7 42.0-54.0 [place] [address]-08-15 08:43:00 Test Item Value Reference Range Interpretation Comments MCV (test code = MCV) 82.6 80.0-94.0 [place] [address]-08-15 08:43:00 Test Item Value Reference Range Interpretation Comments MCH (test code = MCH) 28.7 pg 27.0-31.0 [place] [address]-08-15 08:43:00 Test Item Value Reference Range Interpretation Comments MCHC (test code = MCHC) 34.8 32.0-36.0 [place] [address]-08-15 08:43:00 Test Item Value Reference Range Interpretation Comments RDW (test code = RDW) 15.7 11.5-14.5 [place] 324092-08-15 08:43:00 Test Item Value Reference Range Interpretation Comments Platelet (test code = Platelet) 521 429-487 [place] 324092-08-15 08:43:00 Test Item Value Reference Range Interpretation Comments MPV (test code = MPV) 7.7 7.4-10.4 [place] 324092-08-15 08:43:00 Test Item Value Reference Range Interpretation Comments Segs (test code = Segs) 61.8 45.0-75.0 [place] 324092-08-15 08:43:00 Test Item Value Reference Range Interpretation Comments Lymphocytes (test code = Lymphocytes) 19.7 20.0-40.0 [place] 324092-08-15 08:43:00 Test Item Value Reference Range Interpretation Comments Monocytes (test code = Monocytes) 9.0 2.0-12.0 [place] [address]-08-15 08:43:00 Test Item Value Reference Range Interpretation Comments Eosinophils (test code = Eosinophils) 8.2 <=4.0 [place] [address]-08-15 08:43:00 Test Item Value Reference Range Interpretation Comments Basophils (test code = Basophils) 1.3 <=1.0 [place] [address]-08-15 08:43:00 Test Item Value Reference Range Interpretation Comments Neutrophils # (test code = Neutrophils 8.6 1.5-8.1 #) [facility]APF9083[facility]68-48 08:43:00 Test Item Value Reference Range Interpretation Comments Lymphocytes # (test code = Lymphocytes 2.7 1.0-5.5 #) [place] [address]-08-15 08:43:00 Test Item Value Reference Range Interpretation Comments Monocytes # (test code = Monocytes #) 1.3 <=0.8 [place] [address]-08-15 08:43:00 Test Item Value Reference Range Interpretation Comments Eosinophils # (test code = Eosinophils 1.1 <=0.5 #) [place] [address]-08-15 08:43:00 Test Item Value Reference Range Interpretation Comments Basophils # (test code = Basophils #) 0.2 <=0.2 [place] [address]-08-14 09:39:00 Test Item Value Reference Range Interpretation Comments Glucose Lvl (test code = Glucose Lvl) 195 70-99 [place] 159572-08-14 09:39:00 Test Item Value Reference Range Interpretation Comments BUN (test code = BUN) 76 7-22 [place] 159572-08-14 09:39:00 Test Item Value Reference Range Interpretation Comments Creatinine Lvl (test code = Creatinine 4.93 0.50-1.40 Lvl) [place] 159572-08-14 09:39:00 Test Item Value Reference Range Interpretation Comments Sodium Lvl (test code = Sodium Lvl) 130 135-145 [place] 159572-08-14 09:39:00 Test Item Value Reference Range Interpretation Comments Potassium Lvl (test code = Potassium 4.2 3.5-5.1 Lvl) [place] 159572-08-14 09:39:00 Test Item Value Reference Range Interpretation Comments Chloride Lvl (test code = Chloride Lvl) 96 95-109 [place] 159572-08-14 09:39:00 Test Item Value Reference Range Interpretation Comments CO2 (test code = CO2) 23 24-32 [place] 159572-08-14 09:39:00 Test Item Value Reference Range Interpretation Comments AGAP (test code = AGAP) 15.2 10.0-20.0 [place] 159572-08-14 09:39:00 Test Item Value Reference Range Interpretation Comments Calcium Lvl (test code = Calcium Lvl) 8.8 8.5-10.5 [place] 159572-08-14 09:39:00 Test Item Value Reference Range Interpretation Comments eGFR (test code = eGFR) 13 [place] 159572-08-14 09:39:00 Test Item Value Reference Range Interpretation Comments Magnesium Lvl (test code = Magnesium 2.5 1.8-2.4 Lvl) [place] 159572-08-14 09:39:00 Test Item Value Reference Range Interpretation Comments Phosphorus (test code = Phosphorus) 4.9 2.5-4.5 [facility]ZZ7068[facility] 09:39:00 Test Item Value Reference Range Interpretation Comments Segs (test code = Segs) 59.7 45.0-75.0 [facility] HospitalMdqkrumTUWMOFRCQQ3255-42-79 09:39:00 Test Item Value Reference Range Interpretation Comments Lymphocytes (test code = Lymphocytes) 19.7 20.0-40.0 [facility] HospitalTgjqpltPTLVCMPHZP0455-72-09 09:39:00 Test Item Value Reference Range Interpretation Comments Monocytes (test code = Monocytes) 10.6 2.0-12.0 [facility] HospitalXofcixjBQYQTWQCKR3622-23-34 09:39:00 Test Item Value Reference Range Interpretation Comments Eosinophils (test code = Eosinophils) 9.1 <=4.0 [facility] HospitalLtwgdtbBNQTTRZXAV6754-42-05 09:39:00 Test Item Value Reference Range Interpretation Comments Basophils (test code = Basophils) 0.9 <=1.0 [facility] HospitalTluffkhZSFBZZTSYV7664-83-02 09:39:00 Test Item Value Reference Range Interpretation Comments Neutrophils # (test code = Neutrophils 8.4 1.5-8.1 #) [facility] HospitalCvhqqzpUADKLKESDF3140-02-83 09:39:00 Test Item Value Reference Range Interpretation Comments Lymphocytes # (test code = Lymphocytes 2.8 1.0-5.5 #) [facility] HospitalBelwjfoAUOELLHCVB0656-65-29 09:39:00 Test Item Value Reference Range Interpretation Comments Monocytes # (test code = Monocytes #) 1.5 <=0.8 [facility] HospitalMteddctMDOEARXGDD7779-44-62 09:39:00 Test Item Value Reference Range Interpretation Comments Eosinophils # (test code = Eosinophils 1.3 <=0.5 #) [facility] HospitalHodygkuEFKNSZFZOI0122-63-04 09:39:00 Test Item Value Reference Range Interpretation Comments Basophils # (test code = Basophils #) 0.1 <=0.2 [facility] HospitalTevucdeOMKGBVXDTN3785-03-64 09:39:00 Test Item Value Reference Range Interpretation Comments WBC (test code = WBC) 14.0 3.7-10.4 [facility] HospitalCurnblbAPRBQSMSXW6337-71-50 09:39:00 Test Item Value Reference Range Interpretation Comments RBC (test code = RBC) 4.04 4.70-6.10 [facility] HospitalTnewzstXXLIQPGRRF7251-94-82 09:39:00 Test Item Value Reference Range Interpretation Comments Hgb (test code = Hgb) 11.3 14.0-18.0 [place] [address]-08-14 09:39:00 Test Item Value Reference Range Interpretation Comments Hct (test code = Hct) 33.7 42.0-54.0 [place] 324092-08-14 09:39:00 Test Item Value Reference Range Interpretation Comments MCV (test code = MCV) 83.4 80.0-94.0 [place] 324092-08-14 09:39:00 Test Item Value Reference Range Interpretation Comments MCH (test code = MCH) 28.0 pg 27.0-31.0 [facility] HospitalTkymmnnPWTIYTBKJS5116-80-00 09:39:00 Test Item Value Reference Range Interpretation Comments MCHC (test code = MCHC) 33.6 32.0-36.0 [place] 324092-08-14 09:39:00 Test Item Value Reference Range Interpretation Comments RDW (test code = RDW) 15.8 11.5-14.5 [place] 324092-08-14 09:39:00 Test Item Value Reference Range Interpretation Comments Platelet (test code = Platelet) 532 133-450 [facility] HospitalWmuftoyWQPUZXASVZ3139-40-96 09:39:00 Test Item Value Reference Range Interpretation Comments MPV (test code = MPV) 7.7 7.4-10.4 [facility]2022-08-13 10:36:00 Test Item Value Reference Range Interpretation Comments Total Protein (test code = Total 7.4 6.4-8.4 Protein) [facility]2022-08-13 10:36:00 Test Item Value Reference Range Interpretation Comments Albumin Lvl (test code = Albumin Lvl) 2.1 3.5-5.0 [facility]2022-08-13 10:36:00 Test Item Value Reference Range Interpretation Comments ALT (test code = ALT) 24 <=65 [facility]2022-08-13 10:36:00 Test Item Value Reference Range Interpretation Comments AST (test code = AST) 24 <=37 [facility]2022-08-13 10:36:00 Test Item Value Reference Range Interpretation Comments Alk Phos (test code = Alk Phos) 171 39-136 [facility]2022-08-13 10:36:00 Test Item Value Reference Range Interpretation Comments Bili Total (test code = Bili Total) 0.6 0.2-1.3 [facility]2022-08-13 10:36:00 Test Item Value Reference Range Interpretation Comments B/C Ratio (test code = B/C Ratio) 13 1 6-25 [place] 159572-08-13 10:36:00 Test Item Value Reference Range Interpretation Comments Globulin (test code = Globulin) 5.3 2.7-4.2 [facility]2022-08-13 10:36:00 Test Item Value Reference Range Interpretation Comments A/G Ratio (test code = A/G Ratio) 0.4 1 0.7-1.6 [place] [address]-08-13 10:36:00 Test Item Value Reference Range Interpretation Comments Segs (test code = Segs) 57.6 45.0-75.0 [place] [address]-08-13 10:36:00 Test Item Value Reference Range Interpretation Comments Lymphocytes (test code = Lymphocytes) 19.6 20.0-40.0 [place] 324092-08-13 10:36:00 Test Item Value Reference Range Interpretation Comments Monocytes (test code = Monocytes) 13.0 2.0-12.0 [place] [address]-08-13 10:36:00 Test Item Value Reference Range Interpretation Comments Eosinophils (test code = Eosinophils) 8.5 <=4.0 [place] [address]-08-13 10:36:00 Test Item Value Reference Range Interpretation Comments Basophils (test code = Basophils) 1.3 <=1.0 [place] [address]-08-13 10:36:00 Test Item Value Reference Range Interpretation Comments Neutrophils # (test code = Neutrophils 7.0 1.5-8.1 #) [facility] HospitalObchokrWKZVRNRWHK8227-15-78 10:36:00 Test Item Value Reference Range Interpretation Comments Lymphocytes # (test code = Lymphocytes 2.4 1.0-5.5 #) [place] [address]-08-13 10:36:00 Test Item Value Reference Range Interpretation Comments Monocytes # (test code = Monocytes #) 1.6 <=0.8 [place] [address]-08-13 10:36:00 Test Item Value Reference Range Interpretation Comments Eosinophils # (test code = Eosinophils 1.0 <=0.5 #) [facility]76[facility]45 10:36:00 Test Item Value Reference Range Interpretation Comments Basophils # (test code = Basophils #) 0.2 <=0.2 [facility] AND [id number] 11:07:00 Test Item Value Reference Range Interpretation Comments UA WBC (test code = UA WBC) no gt <=5 [facility] AND [id number] 11:07:00 Test Item Value Reference Range Interpretation Comments UA RBC (test code = UA RBC) 70 <=2 [facility] AND [id number] 11:07:00 Test Item Value Reference Range Interpretation Comments UA Bacteria (test code = UA Many /HPF Bacteria) [facility] AND [id number] 11:07:00 Test Item Value Reference Range Interpretation Comments UA Color (test code = Yellow *NA*(03/11/22 UA Color) 6:07 AM) [facility] AND [id number] 11:07:00 Test Item Value Reference Range Interpretation Comments UA Turbidity (test code = Clear (03/11/22 6:07 UA Turbidity) AM) [facility] AND [id number] 11:07:00 Test Item Value Reference Range Interpretation Comments UA Spec Grav (test code = UA Spec 1.015 1 Grav) [facility] AND [id number] 11:07:00 Test Item Value Reference Range Interpretation Comments UA pH (test code = UA pH) 6.0 1 5.0-8.0 [facility] AND [id number] 11:07:00 Test Item Value Reference Range Interpretation Comments UA Protein (test code = UA Protein) 100 mg/dL [facility] AND [id number] 11:07:00 Test Item Value Reference Range Interpretation Comments UA Glucose (test code Negative (03/11/22 6:07 = UA Glucose) AM) [facility] AND [id number] 11:07:00 Test Item Value Reference Range Interpretation Comments UA Ketones (test code Negative *NA*(03/11/22 = UA Ketones) 6:07 AM) [facility] AND [id number] 11:07:00 Test Item Value Reference Range Interpretation Comments UA Bili (test code = Negative *NA*(03/11/22 UA Bili) 6:07 AM) [facility] [id number] 11:07:00 Test Item Value Reference Range Interpretation Comments UA Blood (test code = Large *ABN*(03/11/22 UA Blood) 6:07 AM) [facility] [id number] 11:07:00 Test Item Value Reference Range Interpretation Comments UA Urobilinogen (test code = UA 0.2 0.1-1.0 Urobilinogen) [facility] [id number] 11:07:00 Test Item Value Reference Range Interpretation Comments UA Nitrite (test code Negative (03/11/22 6:07 = UA Nitrite) AM) [facility] [id number] 11:07:00 Test Item Value Reference Range Interpretation Comments UA Leuk Est (test code Large *ABN*(03/11/22 = UA Leuk Est) 6:07 AM) [facility] [id number] 11:07:00 Test Item Value Reference Range Interpretation Comments UA Sq Epi (test code = None Seen (03/11/22 6:07 UA Sq Epi) AM) [facility] [id number] 11:07:00 Test Item Value Reference Range Interpretation Comments Culture: Urine (test 10,000 - 50,000 CFU/mL code = Culture: Urine) Yeast [facility] [employer] [id number] 08:55:00 Test Item Value Reference Range Interpretation Comments Total Protein (test code = Total 7.1 6.4-8.4 Protein) [facility] [employer] [id number] 08:55:00 Test Item Value Reference Range Interpretation Comments Albumin Lvl (test code = Albumin Lvl) 2.1 3.5-5.0 [facility] [id number] 08:55:00 Test Item Value Reference Range Interpretation Comments ALT (test code = ALT) 22 <=65 [facility] [employer] [id number] 08:55:00 Test Item Value Reference Range Interpretation Comments AST (test code = AST) 23 <=37 [facility] [employer] [id number] 08:55:00 Test Item Value Reference Range Interpretation Comments Alk Phos (test code = Alk Phos) 171 39-136 [facility] [employer] [id number] 08:55:00 Test Item Value Reference Range Interpretation Comments Bili Total (test code = Bili Total) 0.5 0.2-1.3 [facility] [id number] 08:55:00 Test Item Value Reference Range Interpretation Comments B/C Ratio (test code = B/C Ratio) 13 1 6-25 [facility] [id number] 08:55:00 Test Item Value Reference Range Interpretation Comments Globulin (test code = Globulin) 5.0 2.7-4.2 [facility] [id number] 08:55:00 Test Item Value Reference Range Interpretation Comments A/G Ratio (test code = A/G Ratio) 0.4 1 0.7-1.6 [facility] [id number] 22:51:00 Test Item Value Reference Range Interpretation Comments Source Strep (test code Urine *NA*(03/07/22 5:51 = Source Strep) PM) [facility] [id number] 22:51:00 Test Item Value Reference Range Interpretation Comments Strep pneumoniae Ag Negative (03/07/22 5:51 (test code = Strep PM) pneumoniae Ag) [facility] [id number] 16:04:00 Test Item Value Reference Range Interpretation Comments Source Respiratory Nasophrngl Swb Panel PCR (test code = *NA*(03/07/22 11:04 AM) Source Respiratory Panel PCR) [facility] [id number] 16:04:00 Test Item Value Reference Range Interpretation Comments Influenza A PCR (test Negative *NA*(03/07/22 code = Influenza A PCR) 11:04 AM) [facility] [id number] 16:04:00 Test Item Value Reference Range Interpretation Comments Influenza B PCR (test Negative *NA*(03/07/22 code = Influenza B PCR) 11:04 AM) [facility] [id number] 16:04:00 Test Item Value Reference Range Interpretation Comments RSV PCR (test code = Negative *NA*(03/07/22 RSV PCR) 11:04 AM) [facility] [id number] 10:14:00 Test Item Value Reference Range Interpretation Comments Glucose Lvl (test code = Glucose Lvl) 259 70-99 [place] 159572-08-07 10:14:00 Test Item Value Reference Range Interpretation Comments BUN (test code = BUN) 53 7-22 [place] 159572-08-07 10:14:00 Test Item Value Reference Range Interpretation Comments Creatinine Lvl (test code = Creatinine 5.32 0.50-1.40 Lvl) [place] 159572-08-07 10:14:00 Test Item Value Reference Range Interpretation Comments Sodium Lvl (test code = Sodium Lvl) 137 135-145 [place] 159572-08-07 10:14:00 Test Item Value Reference Range Interpretation Comments Potassium Lvl (test code = Potassium 3.1 3.5-5.1 Lvl) [place] 159572-08-07 10:14:00 Test Item Value Reference Range Interpretation Comments Chloride Lvl (test code = Chloride Lvl) 100 95-109 [place] 159572-08-07 10:14:00 Test Item Value Reference Range Interpretation Comments CO2 (test code = CO2) 27 24-32 [place] 159572-08-07 10:14:00 Test Item Value Reference Range Interpretation Comments Calcium Lvl (test code = Calcium Lvl) 8.7 8.5-10.5 [place] 159572-08-07 10:14:00 Test Item Value Reference Range Interpretation Comments AGAP (test code = AGAP) 13.1 10.0-20.0 [place] 159572-08-07 10:14:00 Test Item Value Reference Range Interpretation Comments eGFR (test code = eGFR) 12 [place] 324092-08-07 10:14:00 Test Item Value Reference Range Interpretation Comments WBC (test code = WBC) 15.5 3.7-10.4 [place] 324092-08-07 10:14:00 Test Item Value Reference Range Interpretation Comments RBC (test code = RBC) 3.41 4.70-6.10 [place] 324092-08-07 10:14:00 Test Item Value Reference Range Interpretation Comments Hgb (test code = Hgb) 9.5 14.0-18.0 [place] [address]-08-07 10:14:00 Test Item Value Reference Range Interpretation Comments Hct (test code = Hct) 29.4 42.0-54.0 [id number] 10:14:00 Test Item Value Reference Range Interpretation Comments MCV (test code = MCV) 86.2 80.0-94.0 [place] 324092-08-07 10:14:00 Test Item Value Reference Range Interpretation Comments MCH (test code = MCH) 28.0 pg 27.0-31.0 [facility] HospitalVdvrgdfUPJQFECWHI5201-45-84 10:14:00 Test Item Value Reference Range Interpretation Comments MCHC (test code = MCHC) 32.5 32.0-36.0 [facility] HospitalVvodhkpOOAJRHYDQY8525-54-77 10:14:00 Test Item Value Reference Range Interpretation Comments RDW (test code = RDW) 15.6 11.5-14.5 [facility] HospitalPqxtujxPTKOSFRFKB3926-38-17 10:14:00 Test Item Value Reference Range Interpretation Comments Platelet (test code = Platelet) 387 133-450 [facility] HospitalEyrvdpqJAMKWUGJEG7839-12-79 10:14:00 Test Item Value Reference Range Interpretation Comments MPV (test code = MPV) 7.4 7.4-10.4 [facility] HospitalTahhmtwZIFRSIVABP8004-05-74 10:14:00 Test Item Value Reference Range Interpretation Comments Segs (test code = Segs) 58.9 45.0-75.0 [facility] HospitalExcuzdyJPXVLTWRGL3216-63-87 10:14:00 Test Item Value Reference Range Interpretation Comments Lymphocytes (test code = Lymphocytes) 16.3 20.0-40.0 [facility] HospitalVurlbhwHUJKJHJYCG7482-72-82 10:14:00 Test Item Value Reference Range Interpretation Comments Monocytes (test code = Monocytes) 8.7 2.0-12.0 [facility] HospitalVwwzxubNEZDQGGYUV2542-46-43 10:14:00 Test Item Value Reference Range Interpretation Comments Eosinophils (test code = Eosinophils) 15.1 <=4.0 [place] 324092-08-07 10:14:00 Test Item Value Reference Range Interpretation Comments Basophils (test code = Basophils) 1.0 <=1.0 [facility] HospitalTvkxzrqIJRXWUFZZD4346-77-67 10:14:00 Test Item Value Reference Range Interpretation Comments Neutrophils # (test code = Neutrophils 9.1 1.5-8.1 #) [facility] HospitalPpauvkiXELXMCILQD2526-22-59 10:14:00 Test Item Value Reference Range Interpretation Comments Lymphocytes # (test code = Lymphocytes 2.5 1.0-5.5 #) [facility] HospitalZiwqpbwCDYKMSFCRQ0504-49-23 10:14:00 Test Item Value Reference Range Interpretation Comments Monocytes # (test code = Monocytes #) 1.3 <=0.8 [facility] HospitalIzoxfkfKPBYOAHHUX8195-37-56 10:14:00 Test Item Value Reference Range Interpretation Comments Eosinophils # (test code = Eosinophils 2.3 <=0.5 #) [facility] HospitalYoayfexRYSHXQUEJC6634-85-25 10:14:00 Test Item Value Reference Range Interpretation Comments Basophils # (test code = Basophils #) 0.2 <=0.2 [facility]:SUSC:PT:ISOLATE:ORDQN:[id number] 16:32:00 Test Item Value Reference Range Interpretation Comments Gram Stain Report Gram Stain Performed By: (test code = Gram [facility]) [facility]:SUSC:PT:ISOLATE:ORDQN:[id number] 16:32:00 Test Item Value Reference Range Interpretation Comments Culture: Respiratory Many Pseudomonas w/Gram Stain (test code aeruginosa Multi-drug = Culture: Respiratory Resistant Organism w/Gram Stain) [facility]:SUSC:PT:ISOLATE:ORDQN:[id number] 16:32:00 Test Item Value Reference Range Interpretation Comments Pseudomonas aeruginosa Pseudomonas aeruginosa (test code = Pseudomonas aeruginosa) [facility] [id number] 16:32:00 Test Item Value Reference Range Interpretation Comments Gram Stain Report Gram Stain Performed By: (test code = Gram [facility] St[facility] Report) [facility] w/Gram [id number] 16:32:00 Test Item Value Reference Range Interpretation Comments Culture: Respiratory Many Pseudomonas w/Gram Stain (test code aeruginosa Sensitivity = Culture: Respiratory Pending w/Gram Stain) [facility] CenterZxgfweuMJYXYLDUND8283-73-56 12:43:00 Test Item Value Reference Range Interpretation Comments Hep Bs Ag (test code Negative *NA*(03/04/22 = Hep Bs Ag) 7:43 AM) [facility] CenterCwsfuokOIXYKKUTSH1511-37-00 12:43:00 Test Item Value Reference Range Interpretation Comments Hep Bs Ab (test code = Hep Bs Ab) no gt [facility]2022-08-05 08:44:00 Test Item Value Reference Range Interpretation Comments Glucose Lvl (test code = Glucose Lvl) 212 70-99 [place] 159572-08-05 08:44:00 Test Item Value Reference Range Interpretation Comments BUN (test code = BUN) 49 7-22 [place] 159572-08-05 08:44:00 Test Item Value Reference Range Interpretation Comments Creatinine Lvl (test code = Creatinine 5.92 0.50-1.40 Lvl) [place] 159572-08-05 08:44:00 Test Item Value Reference Range Interpretation Comments Sodium Lvl (test code = Sodium Lvl) 138 135-145 [place] 159572-08-05 08:44:00 Test Item Value Reference Range Interpretation Comments Potassium Lvl (test code = Potassium 3.8 3.5-5.1 Lvl) [place] 159572-08-05 08:44:00 Test Item Value Reference Range Interpretation Comments Chloride Lvl (test code = Chloride Lvl) 97 95-109 [place] 159572-08-05 08:44:00 Test Item Value Reference Range Interpretation Comments CO2 (test code = CO2) 26 24-32 [facility]2022-08-05 08:44:00 Test Item Value Reference Range Interpretation Comments AGAP (test code = AGAP) 18.8 10.0-20.0 [place] 159572-08-05 08:44:00 Test Item Value Reference Range Interpretation Comments Calcium Lvl (test code = Calcium Lvl) 8.8 8.5-10.5 [place] 159572-08-05 08:44:00 Test Item Value Reference Range Interpretation Comments eGFR (test code = eGFR) 11 [place] 324092-08-05 08:44:00 Test Item Value Reference Range Interpretation Comments WBC (test code = WBC) 22.3 3.7-10.4 [place] 324092-08-05 08:44:00 Test Item Value Reference Range Interpretation Comments RBC (test code = RBC) 3.52 4.70-6.10 [place] [address]-08-05 08:44:00 Test Item Value Reference Range Interpretation Comments Hgb (test code = Hgb) 10.0 14.0-18.0 [facility] HospitalRisvpgcTSGMGNWRJO7861-52-54 08:44:00 Test Item Value Reference Range Interpretation Comments Hct (test code = Hct) 30.7 42.0-54.0 [facility] HospitalJxlrgquLERDXHAXUI8786-58-60 08:44:00 Test Item Value Reference Range Interpretation Comments MCV (test code = MCV) 87.3 80.0-94.0 [facility] HospitalDfpiylzFYVRFMABMH8748-39-19 08:44:00 Test Item Value Reference Range Interpretation Comments MCH (test code = MCH) 28.4 pg 27.0-31.0 [facility] HospitalRbhaiyuWRXEYAXBJF6284-39-32 08:44:00 Test Item Value Reference Range Interpretation Comments MCHC (test code = MCHC) 32.6 32.0-36.0 [facility] HospitalSrvrhfrFUMFISKICN6151-12-14 08:44:00 Test Item Value Reference Range Interpretation Comments RDW (test code = RDW) 15.7 11.5-14.5 [facility] HospitalRningpnXBSHPWZTGH5072-41-00 08:44:00 Test Item Value Reference Range Interpretation Comments Platelet (test code = Platelet) 410 133-450 [facility] HospitalKuumwpoEMLXZXCMVP1198-17-97 08:44:00 Test Item Value Reference Range Interpretation Comments MPV (test code = MPV) 7.1 7.4-10.4 [facility] HospitalTtqtwaaTJEGLLOHLZ0404-11-74 08:44:00 Test Item Value Reference Range Interpretation Comments Segs (test code = Segs) 78.4 45.0-75.0 [facility] HospitalOnvopuoTYVWXMHUCV6775-57-42 08:44:00 Test Item Value Reference Range Interpretation Comments Lymphocytes (test code = Lymphocytes) 5.9 20.0-40.0 [facility] HospitalPcdudmeYMASTMRREA4840-67-54 08:44:00 Test Item Value Reference Range Interpretation Comments Monocytes (test code = Monocytes) 4.9 2.0-12.0 [facility] HospitalHxtjxerDNFLNXQOPU5050-75-36 08:44:00 Test Item Value Reference Range Interpretation Comments Eosinophils (test code = Eosinophils) 10.4 <=4.0 [facility] HospitalPltwsavLVRZNAVQYO6795-69-24 08:44:00 Test Item Value Reference Range Interpretation Comments Basophils (test code = Basophils) 0.4 <=1.0 [facility] HospitalNfrvxflRJCMBHRBHZ9493-45-66 08:44:00 Test Item Value Reference Range Interpretation Comments Neutrophils # (test code = Neutrophils 17.5 1.5-8.1 #) [facility]OkrdbsfNBDUQFVBJF2907-33-69 08:44:00 Test Item Value Reference Range Interpretation Comments Lymphocytes # (test code = Lymphocytes 1.3 1.0-5.5 #) [facility] HospitalOkjbhtzICBFVTJOLR5852-48-27 08:44:00 Test Item Value Reference Range Interpretation Comments Monocytes # (test code = Monocytes #) 1.1 <=0.8 [facility] HospitalPafzuqxOZASYGCCSQ2892-26-68 08:44:00 Test Item Value Reference Range Interpretation Comments Eosinophils # (test code = Eosinophils 2.3 <=0.5 #) [facility] HospitalDlrtgwlWKBTHTNBTN1158-15-86 08:44:00 Test Item Value Reference Range Interpretation Comments Basophils # (test code = Basophils #) 0.1 <=0.2 [facility] CenterVkcyzmhUNVSLIQWRR0071-23-32 08:44:00 Test Item Value Reference Range Interpretation Comments Vancomycin AUC (test code = Vancomycin 44.5 AUC) [facility] CenterBACT[facility] - [id number] 00:45:00 Test Item Value Reference Range Interpretation Comments MRSA by PCR (test Negative (03/03/22 7:45 code = MRSA by PCR) PM) [facility]BA[facility] - [id number] 23:26:00 Test Item Value Reference Range Interpretation Comments Source Strep (test code Urine *NA*(03/03/22 6:26 = Source Strep) PM) [facility] CenterBA[facility] - [id number] 23:26:00 Test Item Value Reference Range Interpretation Comments Strep pneumoniae Ag Negative (03/03/22 6:26 (test code = Strep PM) pneumoniae Ag) [facility] [id number] 12:12:00 Test Item Value Reference Range Interpretation Comments Glucose Lvl (test code = Glucose Lvl) 108 70-99 [facility] [id number] 12:12:00 Test Item Value Reference Range Interpretation Comments BUN (test code = BUN) 35 7-22 [facility] [id number] 12:12:00 Test Item Value Reference Range Interpretation Comments Creatinine Lvl (test code = Creatinine 4.87 0.50-1.40 Lvl) [facility]2022-08-04 12:12:00 Test Item Value Reference Range Interpretation Comments Sodium Lvl (test code = Sodium Lvl) 141 135-145 [facility]2022-08-04 12:12:00 Test Item Value Reference Range Interpretation Comments Potassium Lvl (test code = Potassium 3.5 3.5-5.1 Lvl) [facility]2022-08-04 12:12:00 Test Item Value Reference Range Interpretation Comments Chloride Lvl (test code = Chloride Lvl) 101 95-109 [facility]2022-08-04 12:12:00 Test Item Value Reference Range Interpretation Comments CO2 (test code = CO2) 32 24-32 [facility]2022-08-04 12:12:00 Test Item Value Reference Range Interpretation Comments Calcium Lvl (test code = Calcium Lvl) 8.0 8.5-10.5 [facility]2022-08-04 12:12:00 Test Item Value Reference Range Interpretation Comments Total Protein (test code = Total 6.7 6.4-8.4 Protein) [facility]2022-08-04 12:12:00 Test Item Value Reference Range Interpretation Comments Albumin Lvl (test code = Albumin Lvl) 1.9 3.5-5.0 [facility]ON [facility]IESAT[facility]ARRIS[facility]GDAEWZ5933-86-75 12:12:00 Test Item Value Reference Range Interpretation Comments ALT (test code = ALT) 38 <=65 [facility] CenterON [facility]IESATRI[facility]ALTH HARRISBURGNCZOK9692-32-60 12:12:00 Test Item Value Reference Range Interpretation Comments AST (test code = AST) 46 <=37 [facility]2022-08-04 12:12:00 Test Item Value Reference Range Interpretation Comments Alk Phos (test code = Alk Phos) 275 39-136 [facility]2022-08-04 12:12:00 Test Item Value Reference Range Interpretation Comments Bili Total (test code = Bili Total) 0.7 0.2-1.3 [facility]2022-08-04 12:12:00 Test Item Value Reference Range Interpretation Comments AGAP (test code = AGAP) 11.5 10.0-20.0 [place] 159572-08-04 12:12:00 Test Item Value Reference Range Interpretation Comments B/C Ratio (test code = B/C Ratio) 7 1 6-25 [place] 159572-08-04 12:12:00 Test Item Value Reference Range Interpretation Comments Globulin (test code = Globulin) 4.8 2.7-4.2 [place] 159572-08-04 12:12:00 Test Item Value Reference Range Interpretation Comments A/G Ratio (test code = A/G Ratio) 0.4 1 0.7-1.6 [place] 159572-08-04 12:12:00 Test Item Value Reference Range Interpretation Comments eGFR (test code = eGFR) 13 [place] 324092-08-04 12:12:00 Test Item Value Reference Range Interpretation Comments WBC (test code = WBC) 29.1 3.7-10.4 [place] 324092-08-04 12:12:00 Test Item Value Reference Range Interpretation Comments RBC (test code = RBC) 3.26 4.70-6.10 [place] 324092-08-04 12:12:00 Test Item Value Reference Range Interpretation Comments Hgb (test code = Hgb) 9.6 14.0-18.0 [place] [address]-08-04 12:12:00 Test Item Value Reference Range Interpretation Comments Hct (test code = Hct) 28.3 42.0-54.0 [place] 324092-08-04 12:12:00 Test Item Value Reference Range Interpretation Comments MCV (test code = MCV) 86.8 80.0-94.0 [place] 324092-08-04 12:12:00 Test Item Value Reference Range Interpretation Comments MCH (test code = MCH) 29.5 pg 27.0-31.0 [place] [address]-08-04 12:12:00 Test Item Value Reference Range Interpretation Comments MCHC (test code = MCHC) 34.0 32.0-36.0 [place] [address]-08-04 12:12:00 Test Item Value Reference Range Interpretation Comments RDW (test code = RDW) 16.0 11.5-14.5 [place] 324092-08-04 12:12:00 Test Item Value Reference Range Interpretation Comments Platelet (test code = Platelet) 402 423-450 [facility] HospitalLhpyiueLFVSSPKOQT0031-16-16 12:12:00 Test Item Value Reference Range Interpretation Comments MPV (test code = MPV) 6.9 7.4-10.4 [place] 324092-08-04 12:12:00 Test Item Value Reference Range Interpretation Comments Segs (test code = Segs) 84.1 45.0-75.0 [facility] HospitalJllshfnBRAJMAIZJJ5954-87-96 12:12:00 Test Item Value Reference Range Interpretation Comments Lymphocytes (test code = Lymphocytes) 6.4 20.0-40.0 [facility] HospitalJpmtadaRREWVSSZSZ8220-95-68 12:12:00 Test Item Value Reference Range Interpretation Comments Monocytes (test code = Monocytes) 5.0 2.0-12.0 [facility] HospitalTfdoyclLMUEGGBSIH6830-92-00 12:12:00 Test Item Value Reference Range Interpretation Comments Eosinophils (test code = Eosinophils) 4.1 <=4.0 [facility] HospitalTbddaztXJCCSSLWRK5120-58-17 12:12:00 Test Item Value Reference Range Interpretation Comments Basophils (test code = Basophils) 0.4 <=1.0 [facility] HospitalNuaqwifUMADZEMYRA4728-18-30 12:12:00 Test Item Value Reference Range Interpretation Comments Neutrophils # (test code = Neutrophils 24.5 1.5-8.1 #) [facility] HospitalOljqgiiLFKLIMTXLU3321-10-58 12:12:00 Test Item Value Reference Range Interpretation Comments Lymphocytes # (test code = Lymphocytes 1.9 1.0-5.5 #) [facility] HospitalWqlqicfYUCQKOZWLF3660-62-54 12:12:00 Test Item Value Reference Range Interpretation Comments Monocytes # (test code = Monocytes #) 1.5 <=0.8 [place] 324092-08-04 12:12:00 Test Item Value Reference Range Interpretation Comments Eosinophils # (test code = Eosinophils 1.2 <=0.5 #) [facility] HospitalOzqaowvLYELBMDHEM7264-54-44 12:12:00 Test Item Value Reference Range Interpretation Comments Basophils # (test code = Basophils #) 0.1 <=0.2 [facility]2022-08-04 02:57:00 Test Item Value Reference Range Interpretation Comments Lactic Acid Lvl (test code = Lactic 1.5 0.5-2.2 Acid Lvl) [facility] [id number] 01:55:00 Test Item Value Reference Range Interpretation Comments Procalcitonin Lvl (test code = 129.48 <=0.10 Procalcitonin Lvl) [facility]CARD[facility] NIUSWQZ5880-08-04 00:39:00 Test Item Value Reference Range Interpretation Comments HS Troponin I (test code = HS Troponin 24 I) [facility] CenterannCARDIAC AWGUFQK1083-23-12 00:39:00 Test Item Value Reference Range Interpretation Comments BNP (test code = BNP) 182 [facility] CenterannGirl[facility] IJQOI4776-10-51 00:39:00 Test Item Value Reference Range Interpretation Comments Total Protein (test code = Total 7.3 6.4-8.4 Protein) [facility] [id number] 00:39:00 Test Item Value Reference Range Interpretation Comments Albumin Lvl (test code = Albumin Lvl) 2.1 3.5-5.0 [facility] [id number] 00:39:00 Test Item Value Reference Range Interpretation Comments ALT (test code = ALT) 47 <=65 [facility] [employer] [id number] 00:39:00 Test Item Value Reference Range Interpretation Comments AST (test code = AST) 70 <=37 [facility] [employer] [id number] 00:39:00 Test Item Value Reference Range Interpretation Comments Alk Phos (test code = Alk Phos) 332 39-136 [facility] [id number] 00:39:00 Test Item Value Reference Range Interpretation Comments Bili Total (test code = Bili Total) 0.5 0.2-1.3 [facility] [id number] 00:39:00 Test Item Value Reference Range Interpretation Comments B/C Ratio (test code = B/C Ratio) 7 1 6-25 [facility] [id number] 00:39:00 Test Item Value Reference Range Interpretation Comments Globulin (test code = Globulin) 5.2 2.7-4.2 [facility] [employer] [id number] 00:39:00 Test Item Value Reference Range Interpretation Comments A/G Ratio (test code = A/G Ratio) 0.4 1 0.7-1.6 [facility] CenterAwxpyrvYZRRGKZLOI8377-97-60 00:38:00 Test Item Value Reference Range Interpretation Comments Plt Morph (test code = Normal (03/02/22 7:38 PM) Plt Morph) [facility] CenterQmafypxUHUHIFYKMS1777-66-01 00:38:00 Test Item Value Reference Range Interpretation Comments Anisocyte (test code = 1+ *ABN*(03/02/22 7:38 Anisocyte) PM) [facility] CenterFgpxumrECZLYAOTQG2334-41-61 00:38:00 Test Item Value Reference Range Interpretation Comments Coronavirus (COVID-19) Not Detected (03/02/22 JING (test code = 7:38 PM) Coronavirus (COVID-19) JING) [facility] METABOLIC [id number] 12:58:00 Test Item Value Reference Range Interpretation Comments SODIUM (test code = 134 mmol/L 136-145 L Please n ote: New NA) Reference Range Aug 2020 POTASSIUM (test code 4.9 mmol/L 3.5-5.1 N = K) CHLORIDE (test code = 99 mmol/L 98-107 N Please note: New CL) Reference Range Aug 2020 CARBON DIOXIDE (test 26 mmol/L 20-31 N Please note: New code = CO2) Reference Range Aug 2020 GLUCOSE (test code = 91 mg/dL 74-106 N Please note: New GLU) Reference Range Aug 2020 BLOOD UREA NITROGEN 71 mg/dL 9-23 H Please n ote: New (test code = BUN) Reference Range Aug 2020 GLOMERULAR FILTRATION 12 mL/min >60 L Units are RATE (test code = mL/min/1.7 3m2 The GFR) estimated glome rular filtration rate is computed usingp atient race, age (>18) , sex, and serum creat inine. If anyof the ne eded data elements a re missing the Lab oratory cannot compute an estimation of t he glomerular filt ration rate. CREATININE (test code 5.50 mg/dL 0.70-1.30 H Please note: New = CREAT) Reference Range Aug 2020 CALCIUM (test code = 9.2 mg/dL 8.7-10.4 N Please note: New CA) Reference Range Aug 2020 CBC W/AUTO [id number] 12:51:00 Test Item Value Reference Range Interpretation Comments WHITE BLOOD CELL (test code = 18.4 x10 3/uL 4.8-10.8 H WBC) RED BLOOD CELL (test code = 3.09 x10 6/uL 4.70-6.10 L RBC) HEMOGLOBIN (test code = HGB) 8.8 g/dL 14.0-18.0 L HEMATOCRIT (test code = HCT) 27.6 % 42.0-52.0 L MEAN CELL VOLUME (test code = 89.3 fL 80.0-94.0 N MCV) MEAN CELL HGB (test code = 28.5 pg 27-31 N MCH) MEAN CELL HGB CONCENTRATION 31.9 G/DL 33-36.5 L (test code = MCHC) RED CELL DISTRIBUTION WIDTH 14.5 % 12.9-16.9 N (test code = RDW) PLATELET COUNT (test code = 537 x10 3/uL 150-440 H PLT) MEAN PLATELET VOLUME (test 8.8 fL 8.9-12.4 L code = MPV) NEUTROPHIL % (test code = NT%) 66.1 % 42.2-75.2 N LYMPHOCYTE % (test code = LY%) 14.6 % 20.5-51.1 L MONOCYTE % (test code = MO%) 12.3 % 1.7-9.3 H EOSINOPHIL % (test code = EO%) 5.1 % 0.0-7.0 N BASOPHIL % (test code = BA%) 1.0 % 0-2.5 N NEUTROPHIL # (test code = NT#) 12.13 x10 3/uL 1.80-7.70 H LYMPHOCYTE # (test code = LY#) 2.67 x10 3/uL 1.00-4.80 N MONOCYTE # (test code = MO#) 2.26 x10 3/uL 0.00-0.80 H EOSINOPHIL # (test code = EO#) 0.93 x10 3/uL 0.00-0.45 H BASOPHIL # (test code = BA#) 0.19 x10 3/uL 0.0-0.20 N - XR CHEST 1 [id number] 09:23:00 [facility] 1965 Sex: MPatient Name: RAGINI CARRILLO Unit No: [id number] EXAMS: CPT CODE: [id number] XR CHEST 1 V 96104 Location: A1 EXAM: XR CHEST 1 VIEW INDICATION: PNA COMPARISON: 02/17/2022 TECHNIQUE: AP Chest FINDINGS: Lines, tubes and hardware: Tracheostomy tube tip overlies the mid thoracic trachea. Right-sided CVC tip overlies the expected location of the inferior SVC. Lungs and pleura: There is unchanged mild nonspeci fic elevation of the right hemidiaphragm. There are unchanged mild right basilar opacities. The bilateral costophrenic sulci are sharp. No focal consolidation on the left. No appreciable pneumothorax. Heart/mediastinum: The cardiomediastinal silhouette is mildly enlarged, but stable. Bones/soft tissues: No acute bony abnormality. IMPRESSION: 1. Lines and tubes, as above. 2. Otherwise, no significantinterval change. at 0923 Reported and signed by: JAILENE LONDONO M.D. CC: Daniel Nazario MD Technologist: MERRICK MOE; Joaquin Jugo Fluoro Time: DAP (Gy m2): Air Kerma (mGy): Trscr Dt/Tm: 02/24/2022 (0923) by:Madeline S29 Printed Date/Time: 02/24/2022 (0926) Name: RAGINI CARRILLO [facility] Phys: Daniel Barcenas MD [address] : 1965 Age: 56 Sex: [place] [address] Loc: BHAVIK Exam Date: 02/24/2022 Status: REG REF PH: FAX: PAGE 1 Signed ReportGlucose Fingerstick 2022-02-23 11:34:00 Test Item Value Reference Range Interpretation Comments Glucose Fingerstick 242 mg/dL 70-115 KIT PLANNER Chuck (test code = WGLUC) Stephane BASIC METABOLIC [id number] 08:20:00 Test Item Value Reference Range Interpretation Comments SODIUM (test code = 129 mmol/L 136-145 L Please n ote: New NA) Reference Range Aug 2020 POTASSIUM (test code 5.1 mmol/L 3.5-5.1 N = K) CHLORIDE (test code = 95 mmol/L 98-107 L Please note: New CL) Reference Range Aug 2020 CARBON DIOXIDE (test 25 mmol/L 20-31 N Please note: New code = CO2) Reference Range Aug 2020 GLUCOSE (test code = 326 mg/dL 74-106 H Please note: New GLU) Reference Range Aug 2020 BLOOD UREA NITROGEN 66 mg/dL 9-23 H Please n ote: New (test code = BUN) Reference Range Aug 2020 GLOMERULAR FILTRATION 11 mL/min >60 L Units are RATE (test code = mL/min/1.7 3m2 The GFR) estimated glome rular filtration rate is computed usingp atient race, age (>18) , sex, and serum creat inine. If anyof the ne eded data elements a re missing the Lab oratory cannot compute an estimation of t he glomerular filt ration rate. CREATININE (test code 5.80 mg/dL 0.70-1.30 H Please note: New = CREAT) Reference Range Aug 2020 CALCIUM (test code = 9.0 mg/dL 8.7-10.4 N Please note: New CA) Reference Range Aug 2020 BASIC METABOLIC [id number] 07:18:00 Test Item Value Reference Range Interpretation Comments SODIUM (test code = 130 mmol/L 136-145 L Please n ote: New NA) Reference Range Aug 2020 POTASSIUM (test code 5.6 mmol/L 3.5-5.1 H = K) CHLORIDE (test code = 85 mmol/L 98-107 L Please note: New CL) Reference Range Aug 2020 CARBON DIOXIDE (test 31 mmol/L 20-31 N Please note: New code = CO2) Reference Range Aug 2020 GLUCOSE (test code = 353 mg/dL 74-106 H Please note: New GLU) Reference Range Aug 2020 BLOOD UREA NITROGEN 87 mg/dL 9-23 H Please n ote: New (test code = BUN) Reference Range Aug 2020 GLOMERULAR FILTRATION 7 mL/min >60 L Units are RATE (test code = mL/min/1.7 3m2 The GFR) estimated glome rular filtration rate is computed usingp atient race, age (>18) , sex, and serum creat inine. If anyof the ne eded data elements a re missing the Lab oratory cannot compute an estimation of t he glomerular filt ration rate. CREATININE (test code 8.10 mg/dL 0.70-1.30 H Please note: New = CREAT) Reference Range Aug 2020 CALCIUM (test code = 9.6 mg/dL 8.7-10.4 N Please note: New CA) Reference Range Aug 2020 CBC W/AUTO [id number] 07:11:00 Test Item Value Reference Range Interpretation Comments WHITE BLOOD CELL (test code = 18.9 x10 3/uL 4.8-10.8 H WBC) RED BLOOD CELL (test code = 3.26 x10 6/uL 4.70-6.10 L RBC) HEMOGLOBIN (test code = HGB) 9.4 g/dL 14.0-18.0 L HEMATOCRIT (test code = HCT) 29.0 % 42.0-52.0 L MEAN CELL VOLUME (test code = 89.0 fL 80.0-94.0 N MCV) MEAN CELL HGB (test code = 28.8 pg 27-31 N MCH) MEAN CELL HGB CONCENTRATION 32.4 G/DL 33-36.5 L (test code = MCHC) RED CELL DISTRIBUTION WIDTH 14.9 % 12.9-16.9 N (test code = RDW) PLATELET COUNT (test code = 614 x10 3/uL 150-440 H PLT) MEAN PLATELET VOLUME (test 9.2 fL 8.9-12.4 N code = MPV) NEUTROPHIL % (test code = NT%) 72.6 % 42.2-75.2 N LYMPHOCYTE % (test code = LY%) 11.8 % 20.5-51.1 L MONOCYTE % (test code = MO%) 9.8 % 1.7-9.3 H EOSINOPHIL % (test code = EO%) 4.1 % 0.0-7.0 N BASOPHIL % (test code = BA%) 1.1 % 0-2.5 N NEUTROPHIL # (test code = NT#) 13.71 x10 3/uL 1.80-7.70 H LYMPHOCYTE # (test code = LY#) 2.22 x10 3/uL 1.00-4.80 N MONOCYTE # (test code = MO#) 1.85 x10 3/uL 0.00-0.80 H EOSINOPHIL # (test code = EO#) 0.78 x10 3/uL 0.00-0.45 H BASOPHIL # (test code = BA#) 0.21 x10 3/uL 0.0-0.20 H BASIC METABOLIC [id number] 11:20:00 Test Item Value Reference Range Interpretation Comments SODIUM (test code = 133 mmol/L 136-145 L Please n ote: New NA) Reference Range Aug 2020 POTASSIUM (test code 4.9 mmol/L 3.5-5.1 N = K) CHLORIDE (test code = 91 mmol/L 98-107 L Please note: New CL) Reference Range Aug 2020 CARBON DIOXIDE (test 31 mmol/L 20-31 N Please note: New code = CO2) Reference Range Aug 2020 GLUCOSE (test code = 169 mg/dL 74-106 H Please note: New GLU) Reference Range Aug 2020 BLOOD UREA NITROGEN 78 mg/dL 9-23 H Please n ote: New (test code = BUN) Reference Range Aug 2020 GLOMERULAR FILTRATION 8 mL/min >60 L Units are RATE (test code = mL/min/1.7 3m2 The GFR) estimated glome rular filtration rate is computed usingp atient race, age (>18) , sex, and serum creat inine. If anyof the ne eded data elements a re missing the Lab oratory cannot compute an estimation of t he glomerular filt ration rate. CREATININE (test code 7.20 mg/dL 0.70-1.30 H Please note: New = CREAT) Reference Range Aug 2020 CALCIUM (test code = 9.9 mg/dL 8.7-10.4 N Please note: New CA) Reference Range Aug 2020 BASIC METABOLIC [id number] 05:16:00 Test Item Value Reference Range Interpretation Comments SODIUM (test code = 134 mmol/L 136-145 L Please n ote: New NA) Reference Range Aug 2020 POTASSIUM (test code 5.3 mmol/L 3.5-5.1 H = K) CHLORIDE (test code = 96 mmol/L 98-107 L Please note: New CL) Reference Range Aug 2020 CARBON DIOXIDE (test 28 mmol/L 20-31 N Please note: New code = CO2) Reference Range Aug 2020 GLUCOSE (test code = 324 mg/dL 74-106 H Please note: New GLU) Reference Range Aug 2020 BLOOD UREA NITROGEN 52 mg/dL 9-23 H Please n ote: New (test code = BUN) Reference Range Aug 2020 GLOMERULAR FILTRATION 12 mL/min >60 L Units are RATE (test code = mL/min/1.7 3m2 The GFR) estimated glome rular filtration rate is computed usingp atient race, age (>18) , sex, and serum creat inine. If anyof the ne eded data elements a re missing the Lab oratory cannot compute an estimation of t he glomerular filt ration rate. CREATININE (test code 5.20 mg/dL 0.70-1.30 H Please note: New = CREAT) Reference Range Aug 2020 CALCIUM (test code = 9.9 mg/dL 8.7-10.4 N Please note: New CA) Reference Range Aug 2020 CBC W/AUTO [id number] 05:16:00 Test Item Value Reference Range Interpretation Comments WHITE BLOOD CELL (test code = 16.4 x10 3/uL 4.8-10.8 H WBC) RED BLOOD CELL (test code = 2.89 x10 6/uL 4.70-6.10 L RBC) HEMOGLOBIN (test code = HGB) 8.4 g/dL 14.0-18.0 L HEMATOCRIT (test code = HCT) 26.5 % 42.0-52.0 L MEAN CELL VOLUME (test code = 91.7 fL 80.0-94.0 N MCV) MEAN CELL HGB (test code = 29.1 pg 27-31 N MCH) MEAN CELL HGB CONCENTRATION 31.7 G/DL 33-36.5 L (test code = MCHC) RED CELL DISTRIBUTION WIDTH 15.9 % 12.9-16.9 N (test code = RDW) PLATELET COUNT (test code = 560 x10 3/uL 150-440 H PLT) MEAN PLATELET VOLUME (test 9.3 fL 8.9-12.4 N code = MPV) NEUTROPHIL % (test code = NT%) 72.0 % 42.2-75.2 N LYMPHOCYTE % (test code = LY%) 12.9 % 20.5-51.1 L MONOCYTE % (test code = MO%) 10.8 % 1.7-9.3 H EOSINOPHIL % (test code = EO%) 2.5 % 0.0-7.0 N BASOPHIL % (test code = BA%) 0.9 % 0-2.5 N NEUTROPHIL # (test code = NT#) 11.81 x10 3/uL 1.80-7.70 H LYMPHOCYTE # (test code = LY#) 2.12 x10 3/uL 1.00-4.80 N MONOCYTE # (test code = MO#) 1.78 x10 3/uL 0.00-0.80 H EOSINOPHIL # (test code = EO#) 0.41 x10 3/uL 0.00-0.45 N BASOPHIL # (test code = BA#) 0.15 x10 3/uL 0.0-0.20 N - XR ABDOMEN [id number] 08:25:00 [facility] 1965 Sex: MPatient Name: RAGINI CARRILLO Unit No: [id number] EXAMS: CPT CODE: [id number] XR ABDOMEN 1V 95000 ABDOMEN, SINGLE VIEW DICTATION LOCATION A1 HISTORY: Abdominal distention. A single view of the abdomen at 7:53 AM was compared to a prior exam from February 16, 2022. FINDINGS: Gastric distention has resolved. Mild nonspecific gas-filled loops of small and large bowel are stable. No new findings are seen. IMPRESSION: Interval resolution of the gastric distention. Possible minimal ileus but no other obvious acute findings. at 0825 Reported and signed by: Alfredo Benjamin Jr, MD CC: Daniel Nazario MD Technologist: MERRICK MOE; Haritha Eason RT (R), (CT) Fluoro Time: DAP (Gy m2): Air Kerma (mGy): Trscr Dt/Tm: 02/17/2022 (824) by:Fish Printed Date/Time: 02/17/2022 (828) Name: RAGINI CARRILLO [facility] Phys: Daniel Barcenas MD [address] : 1965 Age: 56 Sex: [place] [address] Loc: PScottiePSCLIEN Exam Date: 02/17/2022 Status: REG REF PH: FAX: PAGE 1 Signed Report- XR CHEST 1 [id number] 08:24:00 [facility] : 1965 Sex: MPatient Name: RAGINI CARRILLO Unit No: [id number] EXAMS: CPT CODE: [id number] XR CHEST 1 V 61867 CHEST, SINGLE VIEW DICTATION LOCATION A1 HISTORY: Pneumonia. A single view of the chest at 7:53 AM was compared to a prior exam from February 14, 2022. FINDINGS: Streaky bibasilar lung infiltrative/atelectatic changes are stable and remain worse on the right. Upper lungs remain clear. Mild cardiomegaly and cent ral pulmonary vascular prominence are unchanged. Lines and tubes are stable. No new findings are seen. IMPRESSION: No change from the prior exam. at 0824 Reported and signed by: Alfredo Benjamin Jr, MD CC: Daniel Nazario MD Technol ogist: MERRICK MOE; Haritha Eason RT (R), (CT) Fluoro Time: DAP (Gy m2): Air Kerma (mGy): Trscr Dt/Tm: 02/17/2022 (823) by:Fish Printed Date/Time: 02/17/2022 (826) Name: RAGINI CARRILLO [facility] Phys: Daniel Barcenas MD [address] : 1965 Age: 56 Sex: [place] [address] Loc: BHAVIK Exam Date: 02/17/2022 Status: REG REF PH:FAX: PAGE 1 Signed ReportBASIC METABOLIC [id number] 05:21:00 Test Item Value Reference Range Interpretation Comments SODIUM (test code = 131 mmol/L 136-145 L Please n ote: New NA) Reference Range Aug 2020 POTASSIUM (test code 5.5 mmol/L 3.5-5.1 H = K) CHLORIDE (test code = 98 mmol/L 98-107 N Please note: New CL) Reference Range Aug 2020 CARBON DIOXIDE (test 26 mmol/L 20-31 N Please note: New code = CO2) Reference Range Aug 2020 GLUCOSE (test code = 375 mg/dL 74-106 H Please note: New GLU) Reference Range Aug 2020 BLOOD UREA NITROGEN 52 mg/dL 9-23 H Please n ote: New (test code = BUN) Reference Range Aug 2020 GLOMERULAR FILTRATION 14 mL/min >60 L Units are RATE (test code = mL/min/1.7 3m2 The GFR) estimated glome rular filtration rate is computed usingp atient race, age (>18) , sex, and serum creat inine. If anyof the ne eded data elements a re missing the Lab oratory cannot compute an estimation of t he glomerular filt ration rate. CREATININE (test code 4.60 mg/dL 0.70-1.30 H Please note: New = CREAT) Reference Range Aug 2020 CALCIUM (test code = 9.2 mg/dL 8.7-10.4 N Please note: New CA) Reference Range Aug 2020 BASIC METABOLIC [id number] 23:49:00 Test Item Value Reference Range Interpretation Comments SODIUM (test code = 130 mmol/L 136-145 L Please n ote: New NA) Reference Range Aug 2020 POTASSIUM (test code 5.8 mmol/L 3.5-5.1 H = K) CHLORIDE (test code = 96 mmol/L 98-107 L Please note: New CL) Reference Range Aug 2020 CARBON DIOXIDE (test 24 mmol/L 20-31 N Please note: New code = CO2) Reference Range Aug 2020 GLUCOSE (test code = 426 mg/dL 74-106 HH Critica l Value GLU) reported toFirs t Name:STAR Last Name:MARIN EUCEDA READ BACK AND VERIFIEDby LESLYE DEL REAL, on 02/16/22, @ 0528.Please not e: New Reference Range Aug 2020 BLOOD UREA NITROGEN 45 mg/dL 9-23 H Please n ote: New (test code = BUN) Reference Range Aug 2020 GLOMERULAR FILTRATION 15 mL/min >60 L Units are RATE (test code = mL/min/1.7 3m2 The GFR) estimated glome rular filtration rate is computed usingp atient race, age (>18) , sex, and serum creat inine. If anyof the ne eded data elements a re missing the Lab oratory cannot compute an estimation of t he glomerular filt ration rate. CREATININE (test code 4.40 mg/dL 0.70-1.30 H Please note: New = CREAT) Reference Range Aug 2020 CALCIUM (test code = 8.7 mg/dL 8.7-10.4 N Please note: New CA) Reference Range Aug 2020 - XR ABDOMEN [id number] 13:53:00 [facility] 1965 Sex: MPatient Name: RAGINI CARRILLO Unit No: [id number] EXAMS: CPT CODE: [id number] XR ABDOMEN 1V 76338 Location: C3 EXAM: - XR ABDOMEN 1V INDICATION: n/v COMPARISON: Abdominal radiograph dated 02/02/2022. Chest radiograph dated 02/14/2022. TECHNIQUE: AP view of the abdomen. FINDINGS: Lines, tubes and hardware:None. Bowel: There is nonspecific gaseous distention of the stomach. No dilated loops of small or lar ge bowel are identified. No evidence of intraperitoneal free air within the limitations of this supine evaluation. Calcifications: No suspicious calcifications. Lower thorax: There are bibasilar opacities, better appreciated on the prior chest radiograph. Bones: No acute bony abnormality. IMPRESSION: 1. Nonspecific gaseous distention of the stomach, new compared to 02/02/2022. 2. No dilated loops of small or large bowel are identified. at 1353 Reported and signed by: JAILENE LONDONO M.D. CC: Daniel Nazario MD; Isaías Hernandez DO Technologist: Joaquin Knight Fluoro Time: DAP (Gy m2): Air Kerma (mGy): Trscr Dt/Tm: 02/16/2022 (9543) by:[email or web address] Printed Date/Time: 02/16/2022 (2449) Name: RAGINI CARRILLO [facility] Phys: Isaías Glynn DO [address] : 1965 Age: 56 Sex: [place] [address] [id number] Loc: BHAVIK Exam Date: 02/16/2022 Status: REG REF PH: FAX: PAGE 1 Signed Report BASIC METABOLIC [id number] 01:57:00 Test Item Value Reference Range Interpretation Comments SODIUM (test code = 133 mmol/L 136-145 L Please n ote: New NA) Reference Range Aug 2020 POTASSIUM (test code 6.0 mmol/L 3.5-5.1 H = K) CHLORIDE (test code = 95 mmol/L 98-107 L Please note: New CL) Reference Range Aug 2020 CARBON DIOXIDE (test 28 mmol/L 20-31 N Please note: New code = CO2) Reference Range Aug 2020 GLUCOSE (test code = 110 mg/dL 74-106 H Please note: New GLU) Reference Range Aug 2020 BLOOD UREA NITROGEN 68 mg/dL 9-23 H Please n ote: New (test code = BUN) Reference Range Aug 2020 GLOMERULAR FILTRATION 10 mL/min >60 L Units are RATE (test code = mL/min/1.7 3m2 The GFR) estimated glome rular filtration rate is computed usingp atient race, age (>18) , sex, and serum creat inine. If anyof the ne eded data elements a re missing the Lab oratory cannot compute an estimation of t he glomerular filt ration rate. CREATININE (test code 6.10 mg/dL 0.70-1.30 H Please note: New = CREAT) Reference Range Aug 2020 CALCIUM (test code = 9.1 mg/dL 8.7-10.4 N Please note: New CA) Reference Range Aug 2020 CBC W/AUTO [id number] 01:42:00 Test Item Value Reference Range Interpretation Comments WHITE BLOOD CELL (test code = 21.8 x10 3/uL 4.8-10.8 H WBC) RED BLOOD CELL (test code = 2.92 x10 6/uL 4.70-6.10 L RBC) HEMOGLOBIN (test code = HGB) 8.5 g/dL 14.0-18.0 L HEMATOCRIT (test code = HCT) 26.6 % 42.0-52.0 L MEAN CELL VOLUME (test code = 91.1 fL 80.0-94.0 N MCV) MEAN CELL HGB (test code = 29.1 pg 27-31 N MCH) MEAN CELL HGB CONCENTRATION 32.0 G/DL 33-36.5 L (test code = MCHC) RED CELL DISTRIBUTION WIDTH 16.4 % 12.9-16.9 N (test code = RDW) PLATELET COUNT (test code = 492 x10 3/uL 150-440 H PLT) MEAN PLATELET VOLUME (test 9.0 fL 8.9-12.4 N code = MPV) NEUTROPHIL % (test code = NT%) 68.2 % 42.2-75.2 N LYMPHOCYTE % (test code = LY%) 12.9 % 20.5-51.1 L MONOCYTE % (test code = MO%) 14.2 % 1.7-9.3 H EOSINOPHIL % (test code = EO%) 2.9 % 0.0-7.0 N BASOPHIL % (test code = BA%) 0.7 % 0-2.5 N NEUTROPHIL # (test code = NT#) 14.90 x10 3/uL 1.80-7.70 H LYMPHOCYTE # (test code = LY#) 2.82 x10 3/uL 1.00-4.80 N MONOCYTE # (test code = MO#) 3.10 x10 3/uL 0.00-0.80 H EOSINOPHIL # (test code = EO#) 0.63 x10 3/uL 0.00-0.45 H BASOPHIL # (test code = BA#) 0.15 x10 3/uL 0.0-0.20 N - XR CHEST 1 [id number] 08:00:00 [facility] : 1965 Sex: MPatient Name: RAGINI CARRILLO Unit No: [id number] EXAMS: CPT CODE: [id number] XR CHEST 1 V 62607 EXAM: XR Chest 1 View INDICATION: respiratory failure LOCATION CODE: A1 COMPARISON: Chest radiograph dated 02/11/2022 TECHNIQUE: Frontal view of the chest was obtained. FINDINGS: Life support lines and tubes are in unchanged placement. Bibasilar airspace opacities are similar to prior. There is no pleural effusion or pneumothorax. The cardiomediastinal silhouette is unchanged. No acute osseous abnormality isidentified. IMPRESSION: No significant change from prior. at 0800 Reported and signed by: VICKIE PALACIOS M.D. CC: Bob Nazario MD; Yang Karimi Technologist: Haritha Eason RT (R), (CT) Fluoro Time: DAP (Gy m2): Air Kerma (mGy): Trscr Dt/Tm: 02/14/2022 (0800) by:[email or web address] Printed Date/Time: 02/14/2022 (0803) Name: RAGINI CARRILLO [facility] Phys: Yang Ash [address] : 1965 Age: 56 Sex: [place] [address] Loc: KIRANLIEN Exam Date: 02/14/2022 Status: REG REF PH: FAX: PAGE 1 Signed ReportBASIC METABOLIC [id number] 05:30:00 Test Item Value Reference Range Interpretation Comments SODIUM (test code = 133 mmol/L 136-145 L Please n ote: New NA) Reference Range Aug 2020 POTASSIUM (test code 5.1 mmol/L 3.5-5.1 = K) CHLORIDE (test code = 93 mmol/L 98-107 L Please note: New CL) Reference Range Aug 2020 CARBON DIOXIDE (test 28 mmol/L 20-31 N Please note: New code = CO2) Reference Range Aug 2020 GLUCOSE (test code = 169 mg/dL 74-106 H Please note: New GLU) Reference Range Aug 2020 BLOOD UREA NITROGEN 72 mg/dL 9-23 H Please n ote: New (test code = BUN) Reference Range Aug 2020 GLOMERULAR FILTRATION 9 mL/min >60 L Units are RATE (test code = mL/min/1.7 3m2 The GFR) estimated glome rular filtration rate is computed usingp atient race, age (>18) , sex, and serum creat inine. If anyof the ne eded data elements a re missing the Lab oratory cannot compute an estimation of t he glomerular filt ration rate. CREATININE (test code 6.70 mg/dL 0.70-1.30 H Please note: New = CREAT) Reference Range Aug 2020 CALCIUM (test code = 9.3 mg/dL 8.7-10.4 N Please note: New CA) Reference Range Aug 2020 CBC W/AUTO [id number] 05:19:00 Test Item Value Reference Range Interpretation Comments WHITE BLOOD CELL (test code = 17.9 x10 3/uL 4.8-10.8 H WBC) RED BLOOD CELL (test code = 2.90 x10 6/uL 4.70-6.10 L RBC) HEMOGLOBIN (test code = HGB) 8.5 g/dL 14.0-18.0 L HEMATOCRIT (test code = HCT) 26.3 % 42.0-52.0 L MEAN CELL VOLUME (test code = 90.7 fL 80.0-94.0 N MCV) MEAN CELL HGB (test code = 29.3 pg 27-31 N MCH) MEAN CELL HGB CONCENTRATION 32.3 G/DL 33-36.5 L (test code = MCHC) RED CELL DISTRIBUTION WIDTH 16.2 % 12.9-16.9 N (test code = RDW) PLATELET COUNT (test code = 522 x10 3/uL 150-440 H PLT) MEAN PLATELET VOLUME (test 9.4 fL 8.9-12.4 N code = MPV) NEUTROPHIL % (test code = NT%) 68.0 % 42.2-75.2 N LYMPHOCYTE % (test code = LY%) 14.7 % 20.5-51.1 L MONOCYTE % (test code = MO%) 12.3 % 1.7-9.3 H EOSINOPHIL % (test code = EO%) 3.2 % 0.0-7.0 N BASOPHIL % (test code = BA%) 0.7 % 0-2.5 N NEUTROPHIL # (test code = NT#) 12.14 x10 3/uL 1.80-7.70 H LYMPHOCYTE # (test code = LY#) 2.62 x10 3/uL 1.00-4.80 N MONOCYTE # (test code = MO#) 2.19 x10 3/uL 0.00-0.80 H EOSINOPHIL # (test code = EO#) 0.58 x10 3/uL 0.00-0.45 H BASOPHIL # (test code = BA#) 0.12 x10 3/uL 0.0-0.20 N [id number] 15:45:00 Test Item Value Reference Range Interpretation Comments GLUCOSE (test code = 424 mg/dL 74-106 HH Critica l Value reported GLU) toFirst Name:RASHEED HARDY Last Name:JANIYA COBURN READ BACK AND VERIFIEDby PWINSTON BScottieRS, on 02/12/22, @ 154 5.Please note: New Refer ence Range Aug 2020 CBC W/AUTO [id number] 05:08:00 Test Item Value Reference Range Interpretation Comments WHITE BLOOD CELL (test code = 14.5 x10 3/uL 4.8-10.8 H WBC) RED BLOOD CELL (test code = 2.71 x10 6/uL 4.70-6.10 L RBC) HEMOGLOBIN (test code = HGB) 7.8 g/dL 14.0-18.0 L HEMATOCRIT (test code = HCT) 24.2 % 42.0-52.0 L MEAN CELL VOLUME (test code = 89.3 fL 80.0-94.0 N MCV) MEAN CELL HGB (test code = MCH) 28.8 pg 27-31 N MEAN CELL HGB CONCENTRATION 32.2 G/DL 33-36.5 L (test code = MCHC) RED CELL DISTRIBUTION WIDTH 16.0 % 12.9-16.9 N (test code = RDW) PLATELET COUNT (test code = 433 x10 3/uL 150-440 N PLT) MEAN PLATELET VOLUME (test code 9.4 fL 8.9-12.4 N = MPV) NEUTROPHIL % (test code = NT%) 64.8 % 42.2-75.2 N LYMPHOCYTE % (test code = LY%) 16.3 % 20.5-51.1 L MONOCYTE % (test code = MO%) 13.2 % 1.7-9.3 H EOSINOPHIL % (test code = EO%) 3.0 % 0.0-7.0 N BASOPHIL % (test code = BA%) 0.8 % 0-2.5 N NEUTROPHIL # (test code = NT#) 9.40 x10 3/uL 1.80-7.70 H LYMPHOCYTE # (test code = LY#) 2.37 x10 3/uL 1.00-4.80 N MONOCYTE # (test code = MO#) 1.92 x10 3/uL 0.00-0.80 H EOSINOPHIL # (test code = EO#) 0.43 x10 3/uL 0.00-0.45 N BASOPHIL # (test code = BA#) 0.11 x10 3/uL 0.0-0.20 N - XR CHEST 1 [id number] 14:08:00 [facility] [facility]ITAL[facility]: [facility]I CARRILLO : 1965 Sex: MPatient Name: RAGINI CARRILLO Unit No: [id number] EXAMS: CPT CODE: [id number] XR CHEST 1 V 44225 Chestone view portable 02/11/2022 2:07 PM CLINICAL INDICATION: Tracheostomy exchange COMPARISON: The previous day LOCATION: W1 IMPRESSION: Support catheters are in satisfactory radiographic position. Bibasilar opacities may reflect atelectasis or pneumonia. Cardiomediastinal contours are within normal limits. The central pulmonary vasculature is not engorged. at 1408 Reported and signed by: PAU WOODARD M.D. CC: Daniel Nazario MD Technologist: Edith Hills (R) Fluoro Time: DAP (Gy m2): Air Kerma (mGy): Trscr Dt/Tm: 02/11/2022 (1408) by:[email or web address] Printed Date/Time: 02/11/2022 (1411) Name: RAGINI CARRILLO [facility] Phys: Daniel Barcenas MD [address] : 1965 Age: 56 Sex: [place] [id number] Loc: BHAVIK Exam Date: 02/11/2022 Status: REG REF PH: FAX: PAGE 1 SignedReportBASIC METABOLIC [id number] 05:27:00 Test Item Value Reference Range Interpretation Comments SODIUM (test code = 130 mmol/L 136-145 L Please n ote: New NA) Reference Range Aug 2020 POTASSIUM (test code 4.0 mmol/L 3.5-5.1 N = K) CHLORIDE (test code = 92 mmol/L 98-107 L Please note: New CL) Reference Range Aug 2020 CARBON DIOXIDE (test 29 mmol/L 20-31 N Please note: New code = CO2) Reference Range Aug 2020 GLUCOSE (test code = 118 mg/dL 74-106 H Please note: New GLU) Reference Range Aug 2020 BLOOD UREA NITROGEN 52 mg/dL 9-23 H Please n ote: New (test code = BUN) Reference Range Aug 2020 GLOMERULAR FILTRATION 12 mL/min >60 L Units are RATE (test code = mL/min/1.7 3m2 The GFR) estimated glome rular filtration rate is computed usingp atient race, age (>18) , sex, and serum creat inine. If anyof the ne eded data elements a re missing the Lab oratory cannot compute an estimation of t he glomerular filt ration rate. CREATININE (test code 5.50 mg/dL 0.70-1.30 H Please note: New = CREAT) Reference Range Aug 2020 CALCIUM (test code = 8.8 mg/dL 8.7-10.4 N Please note: New CA) Reference Range Aug 2020 CBC W/AUTO [id number] 05:14:00 Test Item Value Reference Range Interpretation Comments WHITE BLOOD CELL (test code = 18.1 x10 3/uL 4.8-10.8 H WBC) RED BLOOD CELL (test code = 2.82 x10 6/uL 4.70-6.10 L RBC) HEMOGLOBIN (test code = HGB) 8.2 g/dL 14.0-18.0 L HEMATOCRIT (test code = HCT) 24.9 % 42.0-52.0 L MEAN CELL VOLUME (test code = 88.3 fL 80.0-94.0 N MCV) MEAN CELL HGB (test code = 29.1 pg 27-31 N MCH) MEAN CELL HGB CONCENTRATION 32.9 G/DL 33-36.5 L (test code = MCHC) RED CELL DISTRIBUTION WIDTH 15.8 % 12.9-16.9 N (test code = RDW) PLATELET COUNT (test code = 452 x10 3/uL 150-440 H PLT) MEAN PLATELET VOLUME (test 9.4 fL 8.9-12.4 N code = MPV) NEUTROPHIL % (test code = NT%) 67.0 % 42.2-75.2 N LYMPHOCYTE % (test code = LY%) 13.6 % 20.5-51.1 L MONOCYTE % (test code = MO%) 14.4 % 1.7-9.3 H EOSINOPHIL % (test code = EO%) 2.7 % 0.0-7.0 N BASOPHIL % (test code = BA%) 0.7 % 0-2.5 N NEUTROPHIL # (test code = NT#) 12.11 x10 3/uL 1.80-7.70 H LYMPHOCYTE # (test code = LY#) 2.45 x10 3/uL 1.00-4.80 N MONOCYTE # (test code = MO#) 2.60 x10 3/uL 0.00-0.80 H EOSINOPHIL # (test code = EO#) 0.48 x10 3/uL 0.00-0.45 H BASOPHIL # (test code = BA#) 0.12 x10 3/uL 0.0-0.20 N - XR CHEST 1 [id number] 09:02:00 [facility] : 1965 Sex: MPatient Name: RAGINI CARRILLO Unit No: [id number] EXAMS: CPT CODE: [id number] XR CHEST 1 V 54931 Chestone view AP 02/10/2022 9:02 AM CLINICAL INDICATION: Pneumonia COMPARISON: 02/07/2022 LOCATION: W1 IMPRESSION: Bibasilar opacities may reflect atelectasis or pneumonia. Cardiomediastinal contours are within normal limits. There is mild pulmonary edema. Support hardware is in satisfactory radiographic position. at 0902 Reported and signed by: PAU WOODARD M.D. CC: Daniel Nazario MD; Isaías Hernandez DO Technologist: Ganga Orozco Time: DAP (Gy m2): Air Kerma (mGy): Trscr Dt/Tm: 02/10/2022 (901) by:[email or web address] Printed Date/Time: 02/10/2022 (904) Name: RAGINI CARRILLO [facility] Phys: Isaías Glynn DO [address] : 1965 Age: 56 Sex: [place] [address] Loc: PScottiePSCLIEN Exam Date: 02/10/2022 Status: REG REF PH: FAX: PAGE 1 Signed ReportBASIC METABOLIC [id number] 04:58:00 Test Item Value Reference Range Interpretation Comments SODIUM (test code = 129 mmol/L 136-145 L Please n ote: New NA) Reference Range Aug 2020 POTASSIUM (test code 3.6 mmol/L 3.5-5.1 N = K) CHLORIDE (test code = 92 mmol/L 98-107 L Please note: New CL) Reference Range Aug 2020 CARBON DIOXIDE (test 31 mmol/L 20-31 N Please note: New code = CO2) Reference Range Aug 2020 GLUCOSE (test code = 197 mg/dL 74-106 H Please note: New GLU) Reference Range Aug 2020 BLOOD UREA NITROGEN 32 mg/dL 9-23 H Please n ote: New (test code = BUN) Reference Range Aug 2020 GLOMERULAR FILTRATION 17 mL/min >60 L Units are RATE (test code = mL/min/1.7 3m2 The GFR) estimated glome rular filtration rate is computed usingp atient race, age (>18) , sex, and serum creat inine. If anyof the ne eded data elements a re missing the Lab oratory cannot compute an estimation of t he glomerular filt ration rate. CREATININE (test code 4.00 mg/dL 0.70-1.30 H Please note: New = CREAT) Reference Range Aug 2020 CALCIUM (test code = 8.5 mg/dL 8.7-10.4 L Please note: New CA) Reference Range Aug 2020 CBC W/AUTO [id number] 04:45:00 Test Item Value Reference Range Interpretation Comments WHITE BLOOD CELL (test code = 14.6 x10 3/uL 4.8-10.8 H WBC) RED BLOOD CELL (test code = 2.82 x10 6/uL 4.70-6.10 L RBC) HEMOGLOBIN (test code = HGB) 8.1 g/dL 14.0-18.0 L HEMATOCRIT (test code = HCT) 25.0 % 42.0-52.0 L MEAN CELL VOLUME (test code = 88.7 fL 80.0-94.0 N MCV) MEAN CELL HGB (test code = MCH) 28.7 pg 27-31 N MEAN CELL HGB CONCENTRATION 32.4 G/DL 33-36.5 L (test code = MCHC) RED CELL DISTRIBUTION WIDTH 15.6 % 12.9-16.9 N (test code = RDW) PLATELET COUNT (test code = 398 x10 3/uL 150-440 N PLT) MEAN PLATELET VOLUME (test code 9.1 fL 8.9-12.4 N = MPV) NEUTROPHIL % (test code = NT%) 65.2 % 42.2-75.2 N LYMPHOCYTE % (test code = LY%) 17.0 % 20.5-51.1 L MONOCYTE % (test code = MO%) 11.1 % 1.7-9.3 H EOSINOPHIL % (test code = EO%) 4.0 % 0.0-7.0 N BASOPHIL % (test code = BA%) 0.7 % 0-2.5 N NEUTROPHIL # (test code = NT#) 9.55 x10 3/uL 1.80-7.70 H LYMPHOCYTE # (test code = LY#) 2.49 x10 3/uL 1.00-4.80 N MONOCYTE # (test code = MO#) 1.62 x10 3/uL 0.00-0.80 H EOSINOPHIL # (test code = EO#) 0.58 x10 3/uL 0.00-0.45 H BASOPHIL # (test code = BA#) 0.10 x10 3/uL 0.0-0.20 N UA RFLX MICR CULT IF [id number] 19:42:00 Test Item Value Reference Range Interpretation Comments UA COLOR (test code = DARK YELLOW DISCRIPT YELLOW A COLU) UA APPEARANCE (test code TURBID DISCRIPT CLEAR A = APPU) UA GLUCOSE DIPSTICK (test NEGATIVE mg/dL NEGATIVE code = DGLUU) UA BILIRUBIN DIPSTICK SMALL NEGATIVE A (test code = BILU) UA KETONE DIPSTICK (test NEGATIVE mg/dL NEGATIVE code = KETU) UA SPECIFIC GRAVITY (test 1.020 1.005-1.030 code = SGU) UA BLOOD DIPSTICK (test LARGE NEGATIVE A code = ELIZABETH) UA PH DIPSTICK (test code 7.0 5.0-9.0 = ARNOLD) UA PROTEIN DIPSTICK (test >=300 mg/dL NEGATIVE A code = PROU) UA UROBILINOGEN DIPSTICK 0.2 mg/dL 0.2-1.0 (test code = URO) UA NITRITE DIPSTICK (test NEGATIVE NEGATIVE code = SIDDHARTH) UA LEUKOCYTE ESTERASE LARGE NEGATIVE A DIPSTICK (test code = LEUU) UA WBC (test code = WBCU) >100 #WBC/HPF 0-2 A UA RBC (test code = RBCU) NONE SEEN #RBC/HPF 0-2 UA BACTERIA (test code = 2+ /HPF NONE-TRACE A BACU) UA SQUAMOUS CELLS (test NONE SEEN /LPF NONE-TRACE code = SQU) Indication for culture: RiskForSepsis-no oth srcSpecimen Description: CATHETERIZED (STRAIGHT)- XR CHEST 1 [id number] 09:35:00 [facility] 1965 Sex: MPatient Name: RAGINI CARRILLO Unit No: [id number] EXAMS: CPT CODE: [id number] XR CHEST 1 V 48666 EXAM:Chest one view. Location: H24 HISTORY: PNA COMPARISON: None available. FINDINGS: Tracheostomy tube is seen at the thoracic inlet. There is a dual lumen right internal jugular catheter followed to the mid SVC. Airspace opacities are present at right lung base. Left lung is clear. There are no pleural effusions or pneumothorax. Cardiac silhouette is normal in size. Aorta and mediastinal contours are within normal limits. Degenerative changes are noted at the left glenohumeral joint. IMPRESSION: 1. Patchy atelectasis/consolidation at the bilateral lung bases, worse on the right. at 0935 Reported and signed by: TIFFANY LANGE M.D. CC: Daniel Nazario MD Technologist: Santosh Richey Fluoro Time: DAP (Gy m2): Air Kerma (mGy): Trscr Dt/Tm: 02/07/2022 (0935) by:[email or web address] Printed Date/Time: 02/07/2022 (0995) Name: RAGINI CARRILLO [facility] Phys: Daniel Barcenas MD [address] : 1965 Age: 56 Sex: [place] [address] Loc: KIRANLIEN Exam Date: 02/07/2022 Status: REG REF PH: FAX: PAGE 1 Signed ReportBASIC METABOLIC [id number] 08:07:00 Test Item Value Reference Range Interpretation Comments SODIUM (test code = 136 mmol/L 136-145 N Please n ote: New NA) Reference Range Aug 2020 POTASSIUM (test code 3.6 mmol/L 3.5-5.1 N = K) CHLORIDE (test code = 100 mmol/L 98-107 N Please note: New CL) Reference Range Aug 2020 CARBON DIOXIDE (test 26 mmol/L 20-31 N Please note: New code = CO2) Reference Range Aug 2020 GLUCOSE (test code = 258 mg/dL 74-106 H Please note: New GLU) Reference Range Aug 2020 BLOOD UREA NITROGEN 41 mg/dL 9-23 H Please n ote: New (test code = BUN) Reference Range Aug 2020 GLOMERULAR FILTRATION 10 mL/min >60 L Units are RATE (test code = mL/min/1.7 3m2 The GFR) estimated glome rular filtration rate is computed usingp atient race, age (>18) , sex, and serum creat inine. If anyof the ne eded data elements a re missing the Lab oratory cannot compute an estimation of t he glomerular filt ration rate. CREATININE (test code 6.50 mg/dL 0.70-1.30 H Please note: New = CREAT) Reference Range Aug 2020 CALCIUM (test code = 8.2 mg/dL 8.7-10.4 L Please note: New CA) Reference Range Aug 2020 CBC W/AUTO [id number] 07:36:00 Test Item Value Reference Range Interpretation Comments WHITE BLOOD CELL (test code = 12.6 x10 3/uL 4.8-10.8 H WBC) RED BLOOD CELL (test code = 2.80 x10 6/uL 4.70-6.10 L RBC) HEMOGLOBIN (test code = HGB) 8.0 g/dL 14.0-18.0 L HEMATOCRIT (test code = HCT) 25.4 % 42.0-52.0 L MEAN CELL VOLUME (test code = 90.7 fL 80.0-94.0 N MCV) MEAN CELL HGB (test code = MCH) 28.6 pg 27-31 N MEAN CELL HGB CONCENTRATION 31.5 G/DL 33-36.5 L (test code = MCHC) RED CELL DISTRIBUTION WIDTH 15.4 % 12.9-16.9 N (test code = RDW) PLATELET COUNT (test code = 389 x10 3/uL 150-440 N PLT) MEAN PLATELET VOLUME (test code 9.4 fL 8.9-12.4 N = MPV) NEUTROPHIL % (test code = NT%) 64.3 % 42.2-75.2 N LYMPHOCYTE % (test code = LY%) 16.2 % 20.5-51.1 L MONOCYTE % (test code = MO%) 11.5 % 1.7-9.3 H EOSINOPHIL % (test code = EO%) 6.8 % 0.0-7.0 N BASOPHIL % (test code = BA%) 0.6 % 0-2.5 N NEUTROPHIL # (test code = NT#) 8.07 x10 3/uL 1.80-7.70 H LYMPHOCYTE # (test code = LY#) 2.04 x10 3/uL 1.00-4.80 N MONOCYTE # (test code = MO#) 1.45 x10 3/uL 0.00-0.80 H EOSINOPHIL # (test code = EO#) 0.86 x10 3/uL 0.00-0.45 H BASOPHIL # (test code = BA#) 0.07 x10 3/uL 0.0-0.20 N BASIC METABOLIC [id number] 05:14:00 Test Item Value Reference Range Interpretation Comments SODIUM (test code = 135 mmol/L 136-145 L Please n ote: New NA) Reference Range Aug 2020 POTASSIUM (test code 3.8 mmol/L 3.5-5.1 N = K) CHLORIDE (test code = 101 mmol/L 98-107 N Please note: New CL) Reference Range Aug 2020 CARBON DIOXIDE (test 26 mmol/L 20-31 N Please note: New code = CO2) Reference Range Aug 2020 GLUCOSE (test code = 317 mg/dL 74-106 H Please note: New GLU) Reference Range Aug 2020 BLOOD UREA NITROGEN 28 mg/dL 9-23 H Please n ote: New (test code = BUN) Reference Range Aug 2020 GLOMERULAR FILTRATION 15 mL/min >60 L Units are RATE (test code = mL/min/1.7 3m2 The GFR) estimated glome rular filtration rate is computed usingp atient race, age (>18) , sex, and serum creat inine. If anyof the ne eded data elements a re missing the Lab oratory cannot compute an estimation of t he glomerular filt ration rate. CREATININE (test code 4.50 mg/dL 0.70-1.30 H Please note: New = CREAT) Reference Range Aug 2020 CALCIUM (test code = 8.0 mg/dL 8.7-10.4 L Please note: New CA) Reference Range Aug 2020 [id number] 05:14:00 Test Item Value Reference Range Interpretation Comments MAGNESIUM (test code = 2.1 mg/dL 1.6-2.6 N Pleas e note: New MAG) Reference Range Aug 2020 T3 [id number] 05:14:00 Test Item Value Reference Range Interpretation Comments T3 FREE (test code 2.05 pg/mL 3.0-4.7 L Please no te: New = T3F) Reference Range Aug 2020 T4 [id number] 05:14:00 Test Item Value Reference Range Interpretation Comments T4 FREE (test code 0.86 ng/dL 0.89-1.76 L Please no te: New = T4F) Reference Range Aug 2020 CBC W/AUTO [id number] 05:02:00 Test Item Value Reference Range Interpretation Comments WHITE BLOOD CELL (test code = 11.7 x10 3/uL 4.8-10.8 H WBC) RED BLOOD CELL (test code = 2.86 x10 6/uL 4.70-6.10 L RBC) HEMOGLOBIN (test code = HGB) 8.3 g/dL 14.0-18.0 L HEMATOCRIT (test code = HCT) 25.3 % 42.0-52.0 L MEAN CELL VOLUME (test code = 88.5 fL 80.0-94.0 N MCV) MEAN CELL HGB (test code = MCH) 29.0 pg 27-31 N MEAN CELL HGB CONCENTRATION 32.8 G/DL 33-36.5 L (test code = MCHC) RED CELL DISTRIBUTION WIDTH 15.4 % 12.9-16.9 N (test code = RDW) PLATELET COUNT (test code = 390 x10 3/uL 150-440 N PLT) MEAN PLATELET VOLUME (test code 9.2 fL 8.9-12.4 N = MPV) NEUTROPHIL % (test code = NT%) 69.0 % 42.2-75.2 N LYMPHOCYTE % (test code = LY%) 12.5 % 20.5-51.1 L MONOCYTE % (test code = MO%) 8.7 % 1.7-9.3 N EOSINOPHIL % (test code = EO%) 8.7 % 0.0-7.0 H BASOPHIL % (test code = BA%) 0.5 % 0-2.5 N NEUTROPHIL # (test code = NT#) 8.04 x10 3/uL 1.80-7.70 H LYMPHOCYTE # (test code = LY#) 1.46 x10 3/uL 1.00-4.80 N MONOCYTE # (test code = MO#) 1.01 x10 3/uL 0.00-0.80 H EOSINOPHIL # (test code = EO#) 1.01 x10 3/uL 0.00-0.45 H BASOPHIL # (test code = BA#) 0.06 x10 3/uL 0.0-0.20 N BASIC METABOLIC [id number] 06:00:00 Test Item Value Reference Range Interpretation Comments SODIUM (test code = 135 mmol/L 136-145 L Please n ote: New NA) Reference Range Aug 2020 POTASSIUM (test code 3.3 mmol/L 3.5-5.1 L = K) CHLORIDE (test code = 96 mmol/L 98-107 L Please note: New CL) Reference Range Aug 2020 CARBON DIOXIDE (test 26 mmol/L 20-31 N Please note: New code = CO2) Reference Range Aug 2020 GLUCOSE (test code = 93 mg/dL 74-106 N Please note: New GLU) Reference Range Aug 2020 BLOOD UREA NITROGEN 46 mg/dL 9-23 H Please n ote: New (test code = BUN) Reference Range Aug 2020 GLOMERULAR FILTRATION 9 mL/min >60 L Units are RATE (test code = mL/min/1.7 3m2 The GFR) estimated glome rular filtration rate is computed usingp atient race, age (>18) , sex, and serum creat inine. If anyof the ne eded data elements a re missing the Lab oratory cannot compute an estimation of t he glomerular filt ration rate. CREATININE (test code 6.60 mg/dL 0.70-1.30 H Please note: New = CREAT) Reference Range Aug 2020 CALCIUM (test code = 8.5 mg/dL 8.7-10.4 L Please note: New CA) Reference Range Aug 2020 CBC W/AUTO [id number] 05:50:00 Test Item Value Reference Range Interpretation Comments WHITE BLOOD CELL (test code = 13.6 x10 3/uL 4.8-10.8 H WBC) RED BLOOD CELL (test code = 2.70 x10 6/uL 4.70-6.10 L RBC) HEMOGLOBIN (test code = HGB) 7.8 g/dL 14.0-18.0 L HEMATOCRIT (test code = HCT) 24.0 % 42.0-52.0 L MEAN CELL VOLUME (test code = 88.9 fL 80.0-94.0 N MCV) MEAN CELL HGB (test code = MCH) 28.9 pg 27-31 N MEAN CELL HGB CONCENTRATION 32.5 G/DL 33-36.5 L (test code = MCHC) RED CELL DISTRIBUTION WIDTH 15.6 % 12.9-16.9 N (test code = RDW) PLATELET COUNT (test code = 393 x10 3/uL 150-440 N PLT) MEAN PLATELET VOLUME (test code 9.3 fL 8.9-12.4 N = MPV) NEUTROPHIL % (test code = NT%) 63.6 % 42.2-75.2 N LYMPHOCYTE % (test code = LY%) 20.1 % 20.5-51.1 L MONOCYTE % (test code = MO%) 7.5 % 1.7-9.3 N EOSINOPHIL % (test code = EO%) 8.0 % 0.0-7.0 H BASOPHIL % (test code = BA%) 0.3 % 0-2.5 N NEUTROPHIL # (test code = NT#) 8.63 x10 3/uL 1.80-7.70 H LYMPHOCYTE # (test code = LY#) 2.73 x10 3/uL 1.00-4.80 N MONOCYTE # (test code = MO#) 1.02 x10 3/uL 0.00-0.80 H EOSINOPHIL # (test code = EO#) 1.09 x10 3/uL 0.00-0.45 H BASOPHIL # (test code = BA#) 0.04 x10 3/uL 0.0-0.20 N LACTIC [id number] 09:19:00 Test Item Value Reference Range Interpretation Comments LACTIC ACID (test code = LACT) 1.00 mmol/L 0.5-2.0 N THYROID STIMULATING [id number] 11:55:00 Test Item Value Reference Range Interpretation Comments THYROID STIMULATING 4.97 mIU/mL 0.55-4.78 H Please n ote: New HORMONE (test code = Referen ce Range Aug TSH) 2020 BASIC METABOLIC [id number] 07:32:00 Test Item Value Reference Range Interpretation Comments SODIUM (test code = 135 mmol/L 136-145 L Please n ote: New NA) Reference Range Aug 2020 POTASSIUM (test code 3.8 mmol/L 3.5-5.1 N = K) CHLORIDE (test code = 98 mmol/L 98-107 N Please note: New CL) Reference Range Aug 2020 CARBON DIOXIDE (test 23 mmol/L 20-31 N Please note: New code = CO2) Reference Range Aug 2020 GLUCOSE (test code = 224 mg/dL 74-106 H Please note: New GLU) Reference Range Aug 2020 BLOOD UREA NITROGEN 28 mg/dL 9-23 H Please n ote: New (test code = BUN) Reference Range Aug 2020 GLOMERULAR FILTRATION 15 mL/min >60 L Units are RATE (test code = mL/min/1.7 3m2 The GFR) estimated glome rular filtration rate is computed usingp atient race, age (>18) , sex, and serum creat inine. If anyof the ne eded data elements a re missing the Lab oratory cannot compute an estimation of t he glomerular filt ration rate. CREATININE (test code 4.40 mg/dL 0.70-1.30 H Please note: New = CREAT) Reference Range Aug 2020 CALCIUM (test code = 9.3 mg/dL 8.7-10.4 Please note: New CA) Reference Range Aug 2020 CBC W/AUTO [id number] 07:22:00 Test Item Value Reference Range Interpretation Comments WHITE BLOOD CELL (test code = 16.0 x10 3/uL 4.8-10.8 H WBC) RED BLOOD CELL (test code = 2.95 x10 6/uL 4.70-6.10 L RBC) HEMOGLOBIN (test code = HGB) 8.5 g/dL 14.0-18.0 L HEMATOCRIT (test code = HCT) 26.6 % 42.0-52.0 L MEAN CELL VOLUME (test code = 90.2 fL 80.0-94.0 N MCV) MEAN CELL HGB (test code = 28.8 pg 27-31 N MCH) MEAN CELL HGB CONCENTRATION 32.0 G/DL 33-36.5 L (test code = MCHC) RED CELL DISTRIBUTION WIDTH 16.0 % 12.9-16.9 N (test code = RDW) PLATELET COUNT (test code = 399 x10 3/uL 150-440 N PLT) MEAN PLATELET VOLUME (test 9.1 fL 8.9-12.4 N code = MPV) NEUTROPHIL % (test code = NT%) 72.1 % 42.2-75.2 N LYMPHOCYTE % (test code = LY%) 15.2 % 20.5-51.1 L MONOCYTE % (test code = MO%) 8.8 % 1.7-9.3 N EOSINOPHIL % (test code = EO%) 2.4 % 0.0-7.0 N BASOPHIL % (test code = BA%) 0.9 % 0-2.5 N NEUTROPHIL # (test code = NT#) 11.57 x10 3/uL 1.80-7.70 H LYMPHOCYTE # (test code = LY#) 2.44 x10 3/uL 1.00-4.80 N MONOCYTE # (test code = MO#) 1.41 x10 3/uL 0.00-0.80 H EOSINOPHIL # (test code = EO#) 0.38 x10 3/uL 0.00-0.45 N BASOPHIL # (test code = BA#) 0.14 x10 3/uL 0.0-0.20 N - CT ABD PELVIS [id number] 16:33:00 [facility] 1965 Sex: MPatient Name: RAGINI CARRILLO Unit No: [id number] EXAMS: CPT CODE: [id number] CT ABD PELVIS W/CONT 12097 Exam: 1. CT angiogram chest with contrast (PE protocol) 2. CT abdomen and pelvis with contrast Location: A1 HISTORY: Respiratory pneumonia, hypoxia, COMPARISON: None available TECHNIQUE: Multiple axial slices through the chest were obtained during 100mL of Isovue-370 contrast administration for evalu ation of the pulmonary arteries. Coronal and sagittal maximum intensity projections were performed and evaluated. Axial images of the abdomen and pelvis were obtained with contrast. Images were reformatted to create coronal and sagittal reconstructions. One or more of the following dose reduction techniques were used: Automated exposure control, adjustment of the mA and/or kV according to patient size, and/or utilization of iterative reconstruction technique. GFR: , Creatinine: mg/dL DLP: 1918mGy-cm. FINDINGS: Chest Respiratory motion artifact limits sensitivity of interpretation. Pulmonary arteries: Suboptimal timing of contrast bolus mildly limits the sensitivity of interpretation. No definitefilling defects are identified within the pulmonary trunk, main or central segmental pulmonary arteries. No definite filling defects are seen within subsegmental branches. Thoracic aorta: Thoracic aorta is mildly elongated. No aneurysmal dilatation or dissection. Heart: Heart is mildly enlarged. No pericardial effusion. Mediastinum: Scattered lymph nodes are identified within the mediastinum which are nonpathologic by imaging criteria. Lungs: Confluent airspace densities are present within the rightlower lobe with volume loss. There are also confluent airspace densities in the left lower lobe withvolume loss. Minimal airspace densities are present within dependent upper lobes. There is interlobular septal thickening. Airway: Fluid is present within the right mainstem bronchus as well as the bronchus intermedius and right lower lobe bronchi. Pleura: No effusions. Bones: Skeletal structures areunremarkable. Name: RAGINI CARRILLO [facility] Phys: Isaías Glynn DO [address] : 1965 Age: 56 Sex: [place] [address] Loc: BHAVIK Exam Date: 02/02/2022 Status: REG REF PH: FAX: PAGE 1 Signed Report (CONTINUED) Patient Name: RAGINI CARRILLO UnitNo: [id number] EXAMS: CPT CODE: [id number] CT ABD PELVIS W/CONT 35836 <Continued> FINDINGS: Abdomen Hepatobiliary: There is fatty infiltration of liver. No discrete intrahepatic lesions are seen. No biliary ductal dilatation. Gallbladder: Gallstone is present within gallbladder lumen. Spleen: No v isualized abnormality. Pancreas: No visualized abnormality. Adrenals: No visualized abnormality. Kidneys: No visualized abnormality. No hydronephrosis or hydroureter. Bowel: Gastrostomy tube is seen within the gastric body. There is fluid and air distending small and large bowel loops followed to level of the rectum. No wall thickening. No obstruction. Appendix is not visualized. Vessels: No visualized abnormality. Lymph nodes: No lymphadenopathy Peritoneum/retroperitoneum: No intraabdominal free air or free fluid. FINDINGS: Pelvis Pelvic organs/bladder: Urinary bladder is mildly distended. Thereis thickening of the bladder wall which may indicate infectious/inflammatory etiology. There is trace free pelvic fluid. Findings are uncertain significance. Lymph nodes: No pelvic or inguinal adenopathy. Bones/soft tissues: Spondylosis is noted in the lower lumbar spine. 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 Remaining skeletal structures are unremarkable. IMPRESSION: 1. No CT evidence for pulmonary embolism, aortic dissection or aneurysm. 2. Confluent airspace densities withinthe right lower lobe with volume loss and fluid within lower lobe bronchi which may represent aspiration pneumonia/postobstructive pneumonitis. There is also Name: RAGINI CARRILLO [facility] Phys: DIETERELISE Brito Isaías Hernandez DO [address] [place] : 1965 Age: 56 Sex: M [place] [id number] Loc: P.PSCLIEN Exam Date: 02/02/2022 Status: REG REF PH: FAX: PAGE 2 Signed Report (CONTINUED) Patient Name: RAGINI CARRILLO Unit No: [id number] EXAMS: CPT CODE: [id number] CT ABD PELVIS W/CONT 12390 <Continued> atelectasis versus pneumonitis in the left lower lobe. 3. Cardiomegaly. 4. Cholelithiasis without further CT evidence for acute cholecystitis. 5. Hepatic steatosis. 6. Abnormal mural thickening of the urinary bladder wall which may indicate infectious/inflammatory etiology.7. Small free pelvic fluid which may relate to inflammatory changes of bladder. 8. Fluid and gas filled small and large bowel loops may indicate ileus or further infectious/inflammatory etiology. No obstruction. at 1633 Reported and signed by: TIFFANY LANGE M.D. CC: Daniel Nazario MD; Isaías Hernandez DO Technologist: Jacinto Hahn CTDI: DLP: Trscr Dt/Tm: 02/02/2022 (1633) by:[email or web address] Printed Date/Time: 02/02/2022 (5156) Name: RAGINI CARRILLO [facility] Phys: DIETERELISE Brito Isaías Hernandez DO [address] : 1965 Age: 56 Sex: M [place] [id number] Loc: PScottiePSCLI Exam Date: 02/02/2022 Status: REG REFPH: FAX: PAGE 3 Signed Report- CTA CHEST FOR [id number] 16:33:00 [facility] 1965 Sex: MPatient Name: RAGINI CARRILLO Unit No: [id number] EXAMS: CPT CODE: [id number] [place] [address] Exam: 1. CT angiogram chest with contrast (PE protocol) 2. CT abdomen and pelvis with contrast Location: A1 HISTORY: Respiratory pneumonia, hypoxia, COMPARISON: None available TECHNIQUE: Multiple axial slices through the chest were obtained during 100mL of Isovue-370 contrast administration for evaluation of the pulmonary arteries. Coronal and sagittal maximum intensity projections were performed and evaluated. Axial images of the abdomen and pelvis were obtained with contrast. Images were reformattedto create coronal and sagittal reconstructions. One or more of the following dose reduction techniques were used: Automated exposure control, adjustment of the mA and/or kV according to patient size, and/or utilization of iterative reconstruction technique. GFR: , Creatinine: mg/dL DLP: 1918mGy-cm. FINDINGS: Chest Respiratory motion artifact limits sensitivity of interpretation. Pulmonary arteries: Suboptimal timing of contrast bolus mildly limits the sensitivity of interpretation. No definite filling defects are identified within the pulmonary trunk, main or central segmental pulmonary arteries. No definite filling defects are seen within subsegmental branches. Thoracic aorta: Thoracic aorta is mildly elongated. No aneurysmal dilatation or dissection. Heart: Heart is mildly enlarged. No pericardial effusion. Mediastinum: Scattered lymph nodes are identified within the mediastinum which are nonpathologic by imaging criteria. Lungs: Confluent airspace densities are present within the right lowerlobe with volume loss. There are also confluent airspace densities in the left lower lobe with volume loss. Minimal airspace densities are present within dependent upper lobes. There is interlobular septal thickening. Airway: Fluid is present within the right mainstem bronchus as well as the bronchus intermedius and right lower lobe bronchi. Pleura: No effusions. Bones: Skeletal structures are unremarkable. Name: RAGINI CARRILLO [facility] Phys: RANBI - Rana,Bilal A DO [address] : 1965 Age: 56 Sex: M [place] [address] Loc: P.PSCLIEN Exam Date: 02/02/2022tatus: REG REF PH: FAX: PAGE 1 Signed Report (CONTINUED) Patient Name: RAGINI CARRILLO Unit No: [id number] EXAMS: CPT CODE: [id number] [place] [address] <Continued> FINDINGS: Abdomen Hepatobiliary: There is fatty infiltration of liver. No discrete intrahepatic lesions are seen. No biliary ductal dilatation. Gallbladder: Gallstone is present within gallbladder lumen. Spleen: No visualized ab normality. Pancreas: No visualized abnormality. Adrenals: No visualized abnormality. Kidneys: No visualized abnormality. No hydronephrosis or hydroureter. Bowel: Gastrostomy tube is seen within the gastric body. There is fluid and air distending small and large bowel loops followed to level of the rectum. No wall thickening. No obstruction. Appendix is not visualized. Vessels: No visualized abnormality. Lymph nodes: No lymphadenopathy Peritoneum/retroperitoneum: No intraabdominal free air or free fluid. FINDINGS: Pelvis Pelvic organs/bladder: Urinary bladder is mildly distended. There is thickeningof the bladder wall which may indicate infectious/inflammatory etiology. There is trace free pelvic fluid. Findings are uncertain significance. Lymph nodes: No pelvic or inguinal adenopathy. Bones/softtissues: Spondylosis is noted in the lower lumbar spine. 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 Remaining skeletal structures are unremarkable. IMPRESSION: 1. No CT evidence for pulmonary embolism, aortic dissection or aneurysm. 2. Confluent airspace densities within the right lower lobe with volume loss and fluid within lower lobe bronchi which may represent aspiration pneumonia /postobstructive pneumonitis. There is also Name: RAGINI CARRILLO [facility] Phys: CYNDY Daryl DietersophyThomstacey A DO [address] : 1965 Age: 56 Sex: M [place] [address] Loc: PRAJANLIZHENG Exam Date: 02/02/2022 Status: REG REF PH: FAX: PAGE 2 Signed Report (CONTINUED) Patient Name: RAGINI CARRILLO Unit No: [id number] EXAMS: CPT CODE: [id number] [place] [address] <Continued> atelectasis versus pneumonitis in the left lower lobe. 3. Cardiomegaly. 4. Cholelithiasis without further CT evidence for acute cholecystitis. 5. Hepatic steatosis. 6. Abnormal mural thickening of the urinary bladder wall which may indicate infectious/inflammatory etiology. 7. Small free pelvic fluid which may relate to inflammatory changes of bladder. 8. Fluid and gas filled small and large bowel loops may indicate ileus or further infectious/inflammatory etiology. No obstruction. at 1633 Reported and signed by: TIFFANY LANGE M.D. CC: Daniel Nazario MD; Isaías Hernandez DO Technologist: Jacinto Hahn CTDI: 73.85 DLP: 1917 Trscr Dt/Tm: 02/02/2022 (1633) by:[email or web address] Printed Date/Time: 02/02/2022 (8630) Name: RAGINI CARRILLO [facility] Phys: Isaías Glynn DO [address] : 1965 Age: 56 Sex: [place] [address] Loc: VJEN Exam Date: 02/02/2022 Status: REG REF PH:FAX: PAGE 3 Signed [id number] 13:33:00 Test Item Value Reference Range Interpretation Comments TROPONIN-I (test 13.0 pg/mL 38.73-80.22 L Please note : Units and code = TROPI) Reference Rang e have changedFeb 3, 2 021 B-TYPE NATRIURETIC [id number] 13:33:00 Test Item Value Reference Range Interpretation Comments B-TYPE NATRIURETIC PEPTIDE (test 56 pg/mL <100 N code = BNP) - XR CHEST 1 [id number] 12:49:00 [facility] 1965 Sex: MPatient Name: RAGINI CARRILLO Unit No: [id number] EXAMS: CPT CODE: [id number] XR CHEST 1 V 26307 Chest one view AP and abdomen 1 view supine 02/02/2022 CLINICAL HISTORY: Respiratory failure, small bowel obstruction COMPARISON: 01/31/2022 LOCATION: W1 IMPRESSION: Cardiomediastinal contours are stable. The central pulmonary vasculature is not engorged. Bibasilar opacities suggest atelectasis. Pneumonia should be excluded clinically. Support catheters are in satisfactory radiographic position. There is no radiographic evidence for bowel obstruction. There is mild ileus. Percutaneous gastrostomy catheter is present. There are no acute-appearing skeletal abnormalities. at 1249 Reported and signed by: PAU WOODARD M.D. CC: Daniel Nazario MD Technologist: Joaquin Knight Fluoro Time: DAP (Gy m2): Air Kerma (mGy): Trscr Dt/Tm: 02/02/2022 (1249) by:[email or web address] Printed Date/Time: 02/02/2022 (9238) Name: RAGINI CARRILLO [facility] Phys: Daniel Barcenas MD [address] : 1965 Age: 56 Sex: [place] [address] Loc: YokastaScottieSTEVE Exam Date: 02/02/2022 Status: REG REF PH: FAX: PAGE 1 Signed Report- XR ABDOMEN [id number] 12:49:00 [facility] : 1965 Sex: MPatient Name: RAGINI CARRILLO Unit No: [id number] EXAMS: CPT CODE: [id number] XR ABDOMEN 1V 57668 Chest one view AP and abdomen 1 view supine 02/02/2022 CLINICAL HISTORY: Respiratory failure, small bowel obstruction COMPARISON: 01/31/2022 LOCATION: W1 IMPRESSION: Cardiomediastinal contours are stable. The central pulmonary vasculature is not engorged. Bibasilar opacities suggest atelectasis. Pneumonia should be excluded clinically. Support catheters are in satisfactory radiographic position. There is no radiographic evidence for bowel obstruction. There is mild ileus. Percutaneous gastrostomy catheter ispresent. There are no acute-appearing skeletal abnormalities. at 1249 Reported and signed by: PAU WOODARD M.D. CC: Daniel Masters MD; Darryl Chavis Jr, MD Technologist: Joaquin Jugo Fluoro Time: DAP (Gy m2): Air Kerma (mGy): Trscr Dt/Tm: 02/02/2022 (1249) by:[email or web address] Printed Date/Time: 02/02/2022 (1011) Name: RAGINI CARRILLO [facility] Phys: Darryl Downs Jr, MD [address] : 1965 Age: 56Sex: [place] [address] Loc: BHAVIK Exam Date: 02/02/2022 Status: REG REFPH: FAX: PAGE 1 Signed ReportBASIC METABOLIC [id number] 07:53:00 Test Item Value Reference Range Interpretation Comments SODIUM (test code = 135 mmol/L 136-145 L Please n ote: New NA) Reference Range Aug 2020 POTASSIUM (test code 4.3 mmol/L 3.5-5.1 N = K) CHLORIDE (test code = 99 mmol/L 98-107 N Please note: New CL) Reference Range Aug 2020 CARBON DIOXIDE (test 24 mmol/L 20-31 N Please note: New code = CO2) Reference Range Aug 2020 GLUCOSE (test code = 215 mg/dL 74-106 H Please note: New GLU) Reference Range Aug 2020 BLOOD UREA NITROGEN 41 mg/dL 9-23 H Please n ote: New (test code = BUN) Reference Range Aug 2020 GLOMERULAR FILTRATION 12 mL/min >60 L Units are RATE (test code = mL/min/1.7 3m2 The GFR) estimated glome rular filtration rate is computed usingp atient race, age (>18) , sex, and serum creat inine. If anyof the ne eded data elements a re missing the Lab oratory cannot compute an estimation of t he glomerular filt ration rate. CREATININE (test code 5.20 mg/dL 0.70-1.30 H Please note: New = CREAT) Reference Range Aug 2020 CALCIUM (test code = 8.2 mg/dL 8.7-10.4 L Please note: New CA) Reference Range Aug 2020 COMPREHENSIVE METABOLIC [id number] 07:53:00 Test Item Value Reference Range Interpretation Comments TOTAL PROTEIN (test 6.4 g/dL 5.7-8.2 N Please n ote: New code = PROT) Reference Range Aug 2020 ALBUMIN (test code = 2.9 g/dL 3.2-4.8 L Please note: New ALB) Reference Range Aug 2020 BILIRUBIN TOTAL (test 0.3 mg/dL 0.3-1.2 N Please note: New code = BILT) Reference Range Aug 2020 SGOT/AST (test code = 50 U/L <34 H Please note: New AST) Reference Range Aug 2020 SGPT/ALT (test code = 56 U/L 10-49 H Please note: New ALT) Reference Range Aug 2020 ALKALINE PHOSPHATASE 192 U/L 46-116 H Please note: New (test code = ALKP) Reference Range Aug 2020 CBC W/AUTO [id number] 07:41:00 Test Item Value Reference Range Interpretation Comments WHITE BLOOD CELL (test code = 17.7 x10 3/uL 4.8-10.8 H WBC) RED BLOOD CELL (test code = 2.76 x10 6/uL 4.70-6.10 L RBC) HEMOGLOBIN (test code = HGB) 8.1 g/dL 14.0-18.0 L HEMATOCRIT (test code = HCT) 25.1 % 42.0-52.0 L MEAN CELL VOLUME (test code = 90.9 fL 80.0-94.0 N MCV) MEAN CELL HGB (test code = 29.3 pg 27-31 N MCH) MEAN CELL HGB CONCENTRATION 32.3 G/DL 33-36.5 L (test code = MCHC) RED CELL DISTRIBUTION WIDTH 16.6 % 12.9-16.9 N (test code = RDW) PLATELET COUNT (test code = 395 x10 3/uL 150-440 N PLT) MEAN PLATELET VOLUME (test 9.8 fL 8.9-12.4 N code = MPV) NEUTROPHIL % (test code = NT%) 78.7 % 42.2-75.2 H LYMPHOCYTE % (test code = LY%) 10.6 % 20.5-51.1 L MONOCYTE % (test code = MO%) 8.7 % 1.7-9.3 N EOSINOPHIL % (test code = EO%) 0.7 % 0.0-7.0 N BASOPHIL % (test code = BA%) 0.5 % 0-2.5 N NEUTROPHIL # (test code = NT#) 13.93 x10 3/uL 1.80-7.70 H LYMPHOCYTE # (test code = LY#) 1.88 x10 3/uL 1.00-4.80 N MONOCYTE # (test code = MO#) 1.54 x10 3/uL 0.00-0.80 H EOSINOPHIL # (test code = EO#) 0.13 x10 3/uL 0.00-0.45 N BASOPHIL # (test code = BA#) 0.09 x10 3/uL 0.0-0.20 N CBC W/AUTO [id number] 07:21:00 Test Item Value Reference Range Interpretation Comments WHITE BLOOD CELL (test code = 15.2 x10 3/uL 4.8-10.8 H WBC) RED BLOOD CELL (test code = 2.98 x10 6/uL 4.70-6.10 L RBC) HEMOGLOBIN (test code = HGB) 8.7 g/dL 14.0-18.0 L HEMATOCRIT (test code = HCT) 26.2 % 42.0-52.0 L MEAN CELL VOLUME (test code = 87.9 fL 80.0-94.0 N MCV) MEAN CELL HGB (test code = 29.2 pg 27-31 N MCH) MEAN CELL HGB CONCENTRATION 33.2 G/DL 33-36.5 N (test code = MCHC) RED CELL DISTRIBUTION WIDTH 16.4 % 12.9-16.9 N (test code = RDW) PLATELET COUNT (test code = 391 x10 3/uL 150-440 N PLT) MEAN PLATELET VOLUME (test 9.4 fL 8.9-12.4 N code = MPV) NEUTROPHIL % (test code = NT%) 71.3 % 42.2-75.2 N LYMPHOCYTE % (test code = LY%) 14.3 % 20.5-51.1 L MONOCYTE % (test code = MO%) 9.6 % 1.7-9.3 H EOSINOPHIL % (test code = EO%) 3.4 % 0.0-7.0 N BASOPHIL % (test code = BA%) 0.7 % 0-2.5 N NEUTROPHIL # (test code = NT#) 10.82 x10 3/uL 1.80-7.70 H LYMPHOCYTE # (test code = LY#) 2.16 x10 3/uL 1.00-4.80 N MONOCYTE # (test code = MO#) 1.46 x10 3/uL 0.00-0.80 H EOSINOPHIL # (test code = EO#) 0.51 x10 3/uL 0.00-0.45 H BASOPHIL # (test code = BA#) 0.10 x10 3/uL 0.0-0.20 N - XR ABDOMEN [id number] 12:31:00 [facility] 1965 Sex: MPatient Name: RAGINI CARRILLO Unit No: [id number] EXAMS: CPT CODE: [id number] XR ABDOMEN 1V 09258 C3 TIME OF STUDY: 01/31/2022 11:08 AM REASON FOR EXAM: ileus/GI bleed COMPARISON: CT January 26, 2022 A single KUB was obtained. Mild diffuse gaseous distention of loops of small bowel measuring up to 2.9 cm. There is stool and gas present in the colon. Gastrostomy tube is seen overlying the stomach. No free air or organomegaly is seen. No abnormal calcifications are identified. IMPRESSION: 1. Findings most suggestive of ileus. at 1231 Reported andsigned by: SEAN SANTANA M.D. CC: Daniel Nazario MD Technologist: Sharee Orozco Time: DAP (Gy m2): Air Kerma (mGy): Trscr Dt/Tm: 01/31/2022 (1231) by:[email or web address] Printed Date/Time: 01/31/2022 (1234) Name: RAGINI CARRILLO [facility] Phys: Daniel Barcenas MD [address] : 1965 Age: 56 Sex: [place] [address] Loc: P.PSCLIEN Exam Date: 01/31/2022 Status: REG REF PH: FAX: PAGE 1 Signed ReportCBC W/AUTO [id number] 07:24:00 Test Item Value Reference Range Interpretation Comments WHITE BLOOD CELL (test code = 17.2 x10 3/uL 4.8-10.8 H WBC) RED BLOOD CELL (test code = 2.61 x10 6/uL 4.70-6.10 L RBC) HEMOGLOBIN (test code = HGB) 7.8 g/dL 14.0-18.0 L HEMATOCRIT (test code = HCT) 22.8 % 42.0-52.0 L MEAN CELL VOLUME (test code = 87.4 fL 80.0-94.0 N MCV) MEAN CELL HGB (test code = 29.9 pg 27-31 N MCH) MEAN CELL HGB CONCENTRATION 34.2 G/DL 33-36.5 N (test code = MCHC) RED CELL DISTRIBUTION WIDTH 15.3 % 12.9-16.9 N (test code = RDW) PLATELET COUNT (test code = 368 x10 3/uL 150-440 N PLT) MEAN PLATELET VOLUME (test 10.1 fL 8.9-12.4 N code = MPV) NEUTROPHIL % (test code = NT%) 68.4 % 42.2-75.2 N LYMPHOCYTE % (test code = LY%) 17.5 % 20.5-51.1 L MONOCYTE % (test code = MO%) 7.9 % 1.7-9.3 N EOSINOPHIL % (test code = EO%) 4.6 % 0.0-7.0 N BASOPHIL % (test code = BA%) 0.7 % 0-2.5 N NEUTROPHIL # (test code = NT#) 11.77 x10 3/uL 1.80-7.70 H LYMPHOCYTE # (test code = LY#) 3.02 x10 3/uL 1.00-4.80 N MONOCYTE # (test code = MO#) 1.37 x10 3/uL 0.00-0.80 H EOSINOPHIL # (test code = EO#) 0.80 x10 3/uL 0.00-0.45 H BASOPHIL # (test code = BA#) 0.12 x10 3/uL 0.0-0.20 N - XR CHEST 1 [id number] 09:00:00 [facility] 1965 Sex: MPatient Name: RAGINI CARRILLO Unit No: [id number] EXAMS: CPT CODE: [id number] XR CHEST 1 V 01286 Portable AP chest, 1 view Location Code: D4 CLINICAL HISTORY: respiratory failure COMPARISON: 01/25/2022 COMMENT: Tubes and life support lines are stable. Mild central congestion remains. Mild airspace disease with likely small effusions appear stable. The cardiomediastinal silhouette is unchanged. There is no acute osseous abnormality. IMPRESSION: No significant interval change. at 0900 Reported and signed by: VALERIE ELLINGTON M.D. CC: Daniel Nazario MD; Isaías Hernandez DO Technologist: Tosha Mars; Ana María Hansen Fluoro Time: DAP (Gy m2): Air Kerma (mGy): Trscr Dt/Tm: 01/30/2022 (0900) by:Kristie Printed Date/Time: 01/30/2022 (0903) Name: RAGINI CARRILLO [facility] Phys: Isaías Glynn DO [address] : 1965 Age:56 Sex: [place] [address] Loc: YovaniPSCLIEN Exam Date: 01/30/2022 Status: REG REF PH: FAX: PAGE 1 Signed ReportBASIC METABOLIC [id number] 07:06:00 Test Item Value Reference Range Interpretation Comments SODIUM (test code = 137 mmol/L 136-145 N Please n ote: New NA) Reference Range Aug 2020 POTASSIUM (test code 4.1 mmol/L 3.5-5.1 N = K) CHLORIDE (test code = 100 mmol/L 98-107 N Please note: New CL) Reference Range Aug 2020 CARBON DIOXIDE (test 25 mmol/L 20-31 N Please note: New code = CO2) Reference Range Aug 2020 GLUCOSE (test code = 63 mg/dL 74-106 L Please note: New GLU) Reference Range Aug 2020 BLOOD UREA NITROGEN 110 mg/dL 9-23 H Please n ote: New (test code = BUN) Reference Range Aug 2020 GLOMERULAR FILTRATION 11 mL/min >60 L Units are RATE (test code = mL/min/1.7 3m2 The GFR) estimated glome rular filtration rate is computed usingp atient race, age (>18) , sex, and serum creat inine. If anyof the ne eded data elements a re missing the Lab oratory cannot compute an estimation of t he glomerular filt ration rate. CREATININE (test code 5.90 mg/dL 0.70-1.30 H Please note: New = CREAT) Reference Range Aug 2020 CALCIUM (test code = 8.9 mg/dL 8.7-10.4 N Please note: New CA) Reference Range Aug 2020 CBC W/AUTO [id number] 05:08:00 Test Item Value Reference Range Interpretation Comments WHITE BLOOD CELL (test code = 13.1 x10 3/uL 4.8-10.8 H WBC) RED BLOOD CELL (test code = 2.82 x10 6/uL 4.70-6.10 L RBC) HEMOGLOBIN (test code = HGB) 8.2 g/dL 14.0-18.0 L HEMATOCRIT (test code = HCT) 24.3 % 42.0-52.0 L MEAN CELL VOLUME (test code = 86.2 fL 80.0-94.0 N MCV) MEAN CELL HGB (test code = MCH) 29.1 pg 27-31 N MEAN CELL HGB CONCENTRATION 33.7 G/DL 33-36.5 N (test code = MCHC) RED CELL DISTRIBUTION WIDTH 15.5 % 12.9-16.9 N (test code = RDW) PLATELET COUNT (test code = 350 x10 3/uL 150-440 N PLT) MEAN PLATELET VOLUME (test code 9.9 fL 8.9-12.4 N = MPV) NEUTROPHIL % (test code = NT%) 57.5 % 42.2-75.2 N LYMPHOCYTE % (test code = LY%) 23.7 % 20.5-51.1 N MONOCYTE % (test code = MO%) 10.4 % 1.7-9.3 H EOSINOPHIL % (test code = EO%) 6.2 % 0.0-7.0 N BASOPHIL % (test code = BA%) 0.9 % 0-2.5 N NEUTROPHIL # (test code = NT#) 7.54 x10 3/uL 1.80-7.70 N LYMPHOCYTE # (test code = LY#) 3.11 x10 3/uL 1.00-4.80 N MONOCYTE # (test code = MO#) 1.37 x10 3/uL 0.00-0.80 H EOSINOPHIL # (test code = EO#) 0.81 x10 3/uL 0.00-0.45 H BASOPHIL # (test code = BA#) 0.12 x10 3/uL 0.0-0.20 N CBC W/AUTO [id number] 04:38:00 Test Item Value Reference Range Interpretation Comments WHITE BLOOD CELL (test 12.9 x10 3/uL 4.8-10.8 H code = WBC) RED BLOOD CELL (test 2.30 x10 6/uL 4.70-6.10 L code = RBC) HEMOGLOBIN (test code 6.6 g/dL 14.0-18.0 LL Critic al Value = HGB) reported Ulices t Name:COREY interiano Name:LACEY CHAUDHRY READ BACK AN D VERIFIEDContent Syndicate: [employer] P.LAB.SKD, on 01/29/22, @ 043 8. HEMATOCRIT (test code 20.2 % 42.0-52.0 L = HCT) MEAN CELL VOLUME (test 87.8 fL 80.0-94.0 N code = MCV) MEAN CELL HGB (test 28.7 pg 27-31 N code = MCH) MEAN CELL HGB 32.7 G/DL 33-36.5 L CONCENTRATION (test code = MCHC) RED CELL DISTRIBUTION 15.8 % 12.9-16.9 N WIDTH (test code = RDW) PLATELET COUNT (test 386 x10 3/uL 150-440 N code = PLT) MEAN PLATELET VOLUME 10.4 fL 8.9-12.4 N (test code = MPV) NEUTROPHIL % (test 58.8 % 42.2-75.2 N code = NT%) LYMPHOCYTE % (test 24.5 % 20.5-51.1 N code = LY%) MONOCYTE % (test code 11.5 % 1.7-9.3 H = MO%) EOSINOPHIL % (test 3.5 % 0.0-7.0 N code = EO%) BASOPHIL % (test code 0.8 % 0-2.5 N = BA%) NEUTROPHIL # (test 7.57 x10 3/uL 1.80-7.70 N code = NT#) LYMPHOCYTE # (test 3.15 x10 3/uL 1.00-4.80 N code = LY#) MONOCYTE # (test code 1.48 x10 3/uL 0.00-0.80 H = MO#) EOSINOPHIL # (test 0.45 x10 3/uL 0.00-0.45 N code = EO#) BASOPHIL # (test code 0.10 x10 3/uL 0.0-0.20 N = BA#) BASIC METABOLIC [id number] 05:27:00 Test Item Value Reference Range Interpretation Comments SODIUM (test code = 134 mmol/L 136-145 L Please n ote: New NA) Reference Range Aug 2020 POTASSIUM (test code 4.7 mmol/L 3.5-5.1 N = K) CHLORIDE (test code = 100 mmol/L 98-107 N Please note: New CL) Reference Range Aug 2020 CARBON DIOXIDE (test 24 mmol/L 20-31 N Please note: New code = CO2) Reference Range Aug 2020 GLUCOSE (test code = 108 mg/dL 74-106 H Please note: New GLU) Reference Range Aug 2020 BLOOD UREA NITROGEN 77 mg/dL 9-23 H Please n ote: New (test code = BUN) Reference Range Aug 2020 GLOMERULAR FILTRATION 11 mL/min >60 L Units are RATE (test code = mL/min/1.7 3m2 The GFR) estimated glome rular filtration rate is computed usingp atient race, age (>18) , sex, and serum creat inine. If anyof the ne eded data elements a re missing the Lab oratory cannot compute an estimation of t he glomerular filt ration rate. CREATININE (test code 5.60 mg/dL 0.70-1.30 H Please note: New = CREAT) Reference Range Aug 2020 CALCIUM (test code = 8.2 mg/dL 8.7-10.4 L Please note: New CA) Reference Range Aug 2020 CBC W/AUTO [id number] 05:00:00 Test Item Value Reference Range Interpretation Comments WHITE BLOOD CELL (test code = 11.4 x10 3/uL 4.8-10.8 H WBC) RED BLOOD CELL (test code = 3.02 x10 6/uL 4.70-6.10 L RBC) HEMOGLOBIN (test code = HGB) 8.6 g/dL 14.0-18.0 L HEMATOCRIT (test code = HCT) 26.3 % 42.0-52.0 L MEAN CELL VOLUME (test code = 87.1 fL 80.0-94.0 N MCV) MEAN CELL HGB (test code = MCH) 28.5 pg 27-31 N MEAN CELL HGB CONCENTRATION 32.7 G/DL 33-36.5 L (test code = MCHC) RED CELL DISTRIBUTION WIDTH 15.5 % 12.9-16.9 N (test code = RDW) PLATELET COUNT (test code = 412 x10 3/uL 150-440 N PLT) MEAN PLATELET VOLUME (test code 9.9 fL 8.9-12.4 N = MPV) NEUTROPHIL % (test code = NT%) 63.1 % 42.2-75.2 N LYMPHOCYTE % (test code = LY%) 18.0 % 20.5-51.1 L MONOCYTE % (test code = MO%) 10.5 % 1.7-9.3 H EOSINOPHIL % (test code = EO%) 7.0 % 0.0-7.0 N BASOPHIL % (test code = BA%) 0.7 % 0-2.5 N NEUTROPHIL # (test code = NT#) 7.22 x10 3/uL 1.80-7.70 N LYMPHOCYTE # (test code = LY#) 2.06 x10 3/uL 1.00-4.80 N MONOCYTE # (test code = MO#) 1.20 x10 3/uL 0.00-0.80 H EOSINOPHIL # (test code = EO#) 0.80 x10 3/uL 0.00-0.45 H BASOPHIL # (test code = BA#) 0.08 x10 3/uL 0.0-0.20 N - CT HEAD/BRAIN W/O [id number] 14:35:00 [facility] 1965 Sex: MPatient Name: RAGINI CARRILLO Unit No: [id number] EXAMS: CPT CODE: [id number] CT HEAD/BRAIN W/O CONT 31356 CT head without contrast 01/27/2022 CLINICAL HISTORY: AMS TECHNIQUE: Axial noncontrast CT images through the head were obtained. This examination was performed according to our departmental dose optimization program, which includes automated exposure control, adjustment of the mA and/or kV according to patient size, and/or use of iterative reconstruction technique. COMPARISON: None available LOCATION: W1 FINDINGS: There is no hemorrhage, extra-axial collection, mass, hydrocephalus, or midline shift. There is moderately advanced microvascular ischemia. There is atherosclerotic calcification of the intracranial arterial vasculature. There is generalized parenchymal volume loss. There is bilateral maxillary sinusitis. There are bilateral mastoid effusions. The skull is intact. IMPRESSION: No intracranial hemorrhage or mass effect. Chronic appearing microvascular and involutional changes. Sinusitis with bilateral mastoid effusions. If concern for acute pathology persists, further evaluation with MRI is recommended. at 1435 Reported and signed by: PAU WOODARD M.D. CC: Daniel Nazario MD Technologist: Jacinto Jackson CTDI: 42.0 DLP: [id number] Trscr Dt/Tm: 01/27/2022 (1435) by:[email or web address] Printed Date/Time: 01/27/2022 (0652) Name: RAGNII CARRILLO [facility] Phys: Daniel Barcenas MD [address] : 1965 Age: 56 Sex: [place] [address] Loc: [facility]IK Exam Date: 01/27/2022 Status: REG REF PH: FAX: PAGE 1 Signed ReportCOMPREHENSIVE METABOLIC PANEL 2022-01-27 05:00:00 Test Item Value Reference Range Interpretation Comments SODIUM (test code = 134 mmol/L 136-145 L Please n ote: New NA) Reference Range Aug 2020 POTASSIUM (test code 4.4 mmol/L 3.5-5.1 N = K) CHLORIDE (test code = 99 mmol/L 98-107 N Please note: New CL) Reference Range Aug 2020 CARBON DIOXIDE (test 25 mmol/L 20-31 N Please note: New code = CO2) Reference Range Aug 2020 GLUCOSE (test code = 180 mg/dL 74-106 H Please note: New GLU) Reference Range Aug 2020 BLOOD UREA NITROGEN 48 mg/dL 9-23 H Please n ote: New (test code = BUN) Reference Range Aug 2020 GLOMERULAR FILTRATION 16 mL/min >60 L Units are RATE (test code = mL/min/1.7 3m2 The GFR) estimated glome rular filtration rate is computed usingp atient race, age (>18) , sex, and serum creat inine. If anyof the ne eded data elements a re missing the Lab oratory cannot compute an estimation of t he glomerular filt ration rate. CREATININE (test code 4.10 mg/dL 0.70-1.30 H Please note: New = CREAT) Reference Range Aug 2020 TOTAL PROTEIN (test 6.6 g/dL 5.7-8.2 N Please n ote: New code = PROT) Reference Range Aug 2020 ALBUMIN (test code = 2.9 g/dL 3.2-4.8 L Please note: New ALB) Reference Range Aug 2020 CALCIUM (test code = 8.4 mg/dL 8.7-10.4 L Please note: New CA) Reference Range Aug 2020 BILIRUBIN TOTAL (test 0.3 mg/dL 0.3-1.2 N Please note: New code = BILT) Reference Range Aug 2020 SGOT/AST (test code = 95 U/L <34 H Please note: New AST) Reference Range Aug 2020 SGPT/ALT (test code = 94 U/L 10-49 H Please note: New ALT) Reference Range Aug 2020 ALKALINE PHOSPHATASE 336 U/L 46-116 H Please note: New (test code = ALKP) Reference Range Aug 2020 CBC W/AUTO [id number] 04:44:00 Test Item Value Reference Range Interpretation Comments WHITE BLOOD CELL (test code = 11.1 x10 3/uL 4.8-10.8 H WBC) RED BLOOD CELL (test code = 3.35 x10 6/uL 4.70-6.10 L RBC) HEMOGLOBIN (test code = HGB) 9.4 g/dL 14.0-18.0 L HEMATOCRIT (test code = HCT) 28.8 % 42.0-52.0 L MEAN CELL VOLUME (test code = 86.0 fL 80.0-94.0 N MCV) MEAN CELL HGB (test code = MCH) 28.1 pg 27-31 N MEAN CELL HGB CONCENTRATION 32.6 G/DL 33-36.5 L (test code = MCHC) RED CELL DISTRIBUTION WIDTH 15.7 % 12.9-16.9 N (test code = RDW) PLATELET COUNT (test code = 451 x10 3/uL 150-440 H PLT) MEAN PLATELET VOLUME (test code 9.6 fL 8.9-12.4 N = MPV) NEUTROPHIL % (test code = NT%) 68.6 % 42.2-75.2 N LYMPHOCYTE % (test code = LY%) 14.3 % 20.5-51.1 L MONOCYTE % (test code = MO%) 10.2 % 1.7-9.3 H EOSINOPHIL % (test code = EO%) 5.5 % 0.0-7.0 N BASOPHIL % (test code = BA%) 0.9 % 0-2.5 N NEUTROPHIL # (test code = NT#) 7.60 x10 3/uL 1.80-7.70 N LYMPHOCYTE # (test code = LY#) 1.58 x10 3/uL 1.00-4.80 N MONOCYTE # (test code = MO#) 1.13 x10 3/uL 0.00-0.80 H EOSINOPHIL # (test code = EO#) 0.61 x10 3/uL 0.00-0.45 H BASOPHIL # (test code = BA#) 0.10 x10 3/uL 0.0-0.20 N CBC W/AUTO [id number] 22:52:00 Test Item Value Reference Range Interpretation Comments WHITE BLOOD CELL (test code = 11.5 x10 3/uL 4.8-10.8 H WBC) RED BLOOD CELL (test code = 3.41 x10 6/uL 4.70-6.10 L RBC) HEMOGLOBIN (test code = HGB) 9.5 g/dL 14.0-18.0 L HEMATOCRIT (test code = HCT) 29.1 % 42.0-52.0 L MEAN CELL VOLUME (test code = 85.3 fL 80.0-94.0 N MCV) MEAN CELL HGB (test code = MCH) 27.9 pg 27-31 N MEAN CELL HGB CONCENTRATION 32.6 G/DL 33-36.5 L (test code = MCHC) RED CELL DISTRIBUTION WIDTH 15.8 % 12.9-16.9 N (test code = RDW) PLATELET COUNT (test code = 481 x10 3/uL 150-440 H PLT) MEAN PLATELET VOLUME (test code 9.8 fL 8.9-12.4 N = MPV) NEUTROPHIL % (test code = NT%) 67.1 % 42.2-75.2 N LYMPHOCYTE % (test code = LY%) 17.2 % 20.5-51.1 L MONOCYTE % (test code = MO%) 8.8 % 1.7-9.3 N EOSINOPHIL % (test code = EO%) 5.5 % 0.0-7.0 N BASOPHIL % (test code = BA%) 0.7 % 0-2.5 N NEUTROPHIL # (test code = NT#) 7.74 x10 3/uL 1.80-7.70 H LYMPHOCYTE # (test code = LY#) 1.98 x10 3/uL 1.00-4.80 N MONOCYTE # (test code = MO#) 1.02 x10 3/uL 0.00-0.80 H EOSINOPHIL # (test code = EO#) 0.64 x10 3/uL 0.00-0.45 H BASOPHIL # (test code = BA#) 0.08 x10 3/uL 0.0-0.20 N ACUTE HEPATITIS [id number] 17:26:00 Test Item Value Reference Range Interpretation Comments AB HEPATITIS A IGM (test code = Nonreactive Nonreactive HAVMAB) AG HEPATITIS B SURFACE (test code Nonreactive Nonreactive = HBSAG) AB HEPATITIS B CORE IGM (test Nonreactive Nonreactive code = HBCMAB) AB HEPATITIS C (test code = Nonreactive Nonreactive HCVAB) - CTA ABD PEL W [id number] 17:07:00 [facility] 1965 Sex: MPatient Name: RAGINI CARRILLO Unit No: [id number] EXAMS: CPT CODE: [id number] CTA ABD PEL W CONT 63899 Indication: hemothorax TECHNIQUE: CT of the chest, abdomen and pelvis is obtained with intravenous contrast using the angiography protocol. Approximately 100 mL of Isovue was administered. No oral contrast was administered. Sagittal and coronal reconstruction images were obtained. MIPS reconstructionsand 3-D reconstructions were viewed on the workstation. COMPARISON: None. LOCATION: A1 CT Dose: 1087mGy-centimeters; One or more of the following dose reduction techniques were used: Automated exposure control, adjustment of the mA and/or kV according to patient size, and/or utilization of iterative reconstruction technique. FINDINGS: CHEST: The thyroid gland is unremarkable. There is no supraclavicular lymphadenopathy. There is focal consolidation within the right lower lobe posteriorly. Mild linear consolidations also present within the left lower lobe posteriorly.. There is no evidence of pulmonary interstitial disease. No pulmonary mass is identified. There is no significant pleural effusion. The heart is mildly enlarged with left ventricular dilation. There is a 1.3 cm low- density left hilar lymph node. There is a 2 cm as well as esophageal lymph node. No mediastinal mass is identified. The hilar structures are unremarkable. The thoracic aorta is unremarkable. There is no evidence of an aortic aneurysm. No aortic dissection is identified. The pulmonary arteries are unremarkable. No pul monary emboli are identified. The thoracic bony structures are unremarkable. ABDOMEN AND PELVIS: Theabdominal aorta appears normal in caliber. There is no evidence of aneurysm or dissection. The visceral branches of the abdominal aorta including the SMA, bilateral renal arteries and CLARENCE appear to bewidely patent. A short segment narrowing of the celiac trunk, likely due to arcuate ligament. There is postoperative dilation. The bilateral common iliac, external iliac and internal iliac arteries arepatent. Name: RAGINI CARRILLO [facility] Phys: Daniel Barcenas MD [address] : 1965 Age: 56 Sex: [place] [id number] Loc: P.PSCLIEN Exam Date: 01/26/2022 Status: REG REF PH: FAX: PAGE 1 Signed Report (CONTINUED) Patient Name: RAGINI CARRILLO Unit No: [id number] EXAMS: CPT CODE: [id number] CTA ABD PEL W CONT 04313 <Continued> There are normal hepatic size, contour and density. There is no evidence of a hepatic mass. There is no evidence of dilated ducts. The gallbladder is mildly distended and contains layering density. There are normal pancreatic size, contour and density. There is no evidence of pancreatitis. There is no evidence of a pancreatic mass. The spleen is estimated at 13.5 cm in AP dimension. The adrenal glands are unremarkable. There are normal renal size, contour, position and density. There is no evidence of hydronephrosis.There is no evidence of a renal mass. There is a thickened urinary bladder. The prostate is normal in size. There is heterogeneous density within the urinary bladder. There is no evidence of retroperitoneal adenopathy. The abdominal aorta is unremarkable. There is no evidence of an abdominal aortic aneurysm. The IVC and portal vein are patent. A G-tube appears in place. The visualized bowel is intact. There is no bowel wall thickening. No bowel mass is identified. No bowel obstruction is identified.The abdominal wall and the inguinal regions are unremarkable. No free air is identified. There is no evidence of ascites. Degenerative disease and spondylosis are present at the lumbosacral junction. IMPRESSION: 1. No evidence of PE. 2. No evidence of thoracic aortic aneurysm or dissection. 3. No evidence of abdominal aortic aneurysm or dissection. 4. Consolidation within the right lower lobe concerning for pneumonia. 5. A G-tube appears in place. 6. Thickened urinary bladder. There may be underlying cystitis. 7. Focal narrowing of the celiac trunk at the origin, likely due to arcuate ligament. at 1707 Reported and signed by: Cameron Garrido MD CC: Daniel Nazario MD Technologist: SANDY FELICIANO RT (R),(CT); Jacinto Graham CTDI: DLP: Trscr Dt/Tm: 01/26/2022 (1706) by:[email or web address] Printed Date/Time: 01/26/2022 (7120) Name: LORENARAGINI [facility] Phys: Daniel Barcenas MD [address] : 1965 Age: 56 Sex: [place] [id number] Loc: YovaniPSCLIEN Exam Date: 01/26/2022 Status: REG REF PH: FAX: PAGE 2 Signed Report- CT ANGIO [id number] 17:07:00 [facility] : 1965 Sex: MPatient Name: RAGINI CARRILLO Unit No: [id number] EXAMS: CPT CODE: [id number] CT ANGIO CHEST 05494 Indication: hemothorax TECHNIQUE: CT of the chest, abdomen and pelvis is obtained with intravenous contrast using the angiography protocol. Approximately 100 mL of Isovue was administered. No oral contrastwas administered. Sagittal and coronal reconstruction images were obtained. MIPS reconstructions and3-D reconstructions were viewed on the workstation. COMPARISON: None. LOCATION: A1 CT Dose: 1087 mGy-centimeters; One or more of the following dose reduction techniques were used: Automated exposure control, adjustment of the mA and/or kV according to patient size, and/or utilization of iterative reconstruction technique. FINDINGS: CHEST: The thyroid gland is unremarkable. There is no supraclavicularlymphadenopathy. There is focal consolidation within the right lower lobe posteriorly. Mild linear consolidations also present within the left lower lobe posteriorly.. There is no evidence of pulmonaryinterstitial disease. No pulmonary mass is identified. There is no significant pleural effusion. The heart is mildly enlarged with left ventricular dilation. There is a 1.3 cm low- density left hilar lymph node. There is a 2 cm as well as esophageal lymph node. No mediastinal mass is identified. The hilar structures are unremarkable. The thoracic aorta is unremarkable. There is no evidence of an aortic aneurysm. No aortic dissection is identified. The pulmonary arteries are unremarkable. No pulmonary emboli are identified. The thoracic bony structures are unremarkable. ABDOMEN AND PELVIS: The abdominal aorta appears normal in caliber. There is no evidence of aneurysm or dissection. The visceral branches of the abdominal aorta including the SMA, bilateral renal arteries and CLARENCE appear to be widelypatent. A short segment narrowing of the celiac trunk, likely due to arcuate ligament. There is postoperative dilation. The bilateral common iliac, external iliac and internal iliac arteries are patent. Name: RAGINI CARRILLO [facility] Phys: Daniel Barcenas MD [address] : 1965 Age: 56 Sex: [place] [address] Loc: YovaniPSCLIEN Exam Date: 01/26/2022 Status: REG REF PH: FAX: PAGE 1 Signed Report (CONTINUED) Patient Name: RAGINI CARRILLO Unit No: [id number] EXAMS: CPT CODE: [id number] CT ANGIO CHEST 37465 <Continued> There are normal hepatic size, contour and density. There is no evidence of a hepatic mass. There is no evidence of dilated ducts. The gallbladder is mildly distended and contains layering density. There are normal pancreatic size, contour and density. There is no evidence of pancreatitis. There is no evidence of a pancreatic mass. The spleen is estimated at 13.5 cm in AP dimension. The adrenal glands are unremarkable. There are normal renal size, contour, position and density. There is no evidence of hydronephrosis. There is no evidence of a renal mass. There is a thickened urinary bladder. The prostate is normal in size.There is heterogeneous density within the urinary bladder. There is no evidence of retroperitoneal adenopathy. The abdominal aorta is unremarkable. There is no evidence of an abdominal aortic aneurysm.The IVC and portal vein are patent. A G-tube appears in place. The visualized bowel is intact. Thereis no bowel wall thickening. No bowel mass is identified. No bowel obstruction is identified. The abdominal wall and the inguinal regions are unremarkable. No free air is identified. There is no evidence of ascites. Degenerative disease and spondylosis are present at the lumbosacral junction. IMPRESSION: 1. No evidence of PE. 2. No evidence of thoracic aortic aneurysm or dissection. 3. No evidence ofabdominal aortic aneurysm or dissection. 4. Consolidation within the right lower lobe concerning forpneumonia. 5. A G-tube appears in place. 6. Thickened urinary bladder. There may be underlying cystitis. 7. Focal narrowing of the celiac trunk at the origin, likely due to arcuate ligament. at 1707 Reported and signed by: Cameron Garrido MD CC: Daniel Nazario MD Technologist: SANDY FELICIANO RT (R),(CT); Jacinto Graham CTDI: 47.69 DLP: 1087.12Trscr Dt/Tm: 01/26/2022 (1707) by:[email or web address] Printed Date/Time: 01/26/2022 (8276) Name: RAGINI CARRILOL [facility] Phys: Daniel Barcenas MD [address] : 1965 Age: 56 Sex: [place] [address] Loc: BHAVIK Exam Date: 01/26/2022 Status: REG REF PH: FAX: PAGE 2 Signed ReportBASIC METABOLIC [id number] 07:21:00 Test Item Value Reference Range Interpretation Comments SODIUM (test code = 135 mmol/L 136-145 L Please n ote: New NA) Reference Range Aug 2020 POTASSIUM (test code 5.1 mmol/L 3.5-5.1 N = K) CHLORIDE (test code = 101 mmol/L 98-107 N Please note: New CL) Reference Range Aug 2020 CARBON DIOXIDE (test 20 mmol/L 20-31 N Please note: New code = CO2) Reference Range Aug 2020 GLUCOSE (test code = 132 mg/dL 74-106 H Please note: New GLU) Reference Range Aug 2020 BLOOD UREA NITROGEN 90 mg/dL 9-23 H Please n ote: New (test code = BUN) Reference Range Aug 2020 GLOMERULAR FILTRATION 10 mL/min >60 L Units are RATE (test code = mL/min/1.7 3m2 The GFR) estimated glome rular filtration rate is computed usingp atient race, age (>18) , sex, and serum creat inine. If anyof the ne eded data elements a re missing the Lab oratory cannot compute an estimation of t he glomerular filt ration rate. CREATININE (test code 6.30 mg/dL 0.70-1.30 H Please note: New = CREAT) Reference Range Aug 2020 CALCIUM (test code = 8.7 mg/dL 8.7-10.4 N Please note: New CA) Reference Range Aug 2020 [id number] 07:21:00 Test Item Value Reference Range Interpretation Comments MAGNESIUM (test code = 2.2 mg/dL 1.6-2.6 N Pleas e note: New MAG) Reference Range Aug 2020 CBC W/AUTO [id number] 07:08:00 Test Item Value Reference Range Interpretation Comments WHITE BLOOD CELL (test 10.8 x10 3/uL 4.8-10.8 N code = WBC) RED BLOOD CELL (test 2.53 x10 6/uL 4.70-6.10 L code = RBC) HEMOGLOBIN (test code 7.0 g/dL 14.0-18.0 L Critic al Value = HGB) reported toFirs t Name:SONAM Last Name:MARI ALICIA LTS READ BACK A ND VERIFIEDby [id number], on 01/26/22, @ 065 7. HEMATOCRIT (test code 21.8 % 42.0-52.0 L = HCT) MEAN CELL VOLUME (test 86.2 fL 80.0-94.0 N code = MCV) MEAN CELL HGB (test 27.7 pg 27-31 N code = MCH) MEAN CELL HGB 32.1 G/DL 33-36.5 L CONCENTRATION (test code = MCHC) RED CELL DISTRIBUTION 16.0 % 12.9-16.9 N WIDTH (test code = RDW) PLATELET COUNT (test 423 x10 3/uL 150-440 N code = PLT) MEAN PLATELET VOLUME 10.4 fL 8.9-12.4 N (test code = MPV) NEUTROPHIL % (test 59.3 % 42.2-75.2 N code = NT%) LYMPHOCYTE % (test 22.1 % 20.5-51.1 N code = LY%) MONOCYTE % (test code 11.4 % 1.7-9.3 H = MO%) EOSINOPHIL % (test 5.6 % 0.0-7.0 N code = EO%) BASOPHIL % (test code 0.7 % 0-2.5 N = BA%) NEUTROPHIL # (test 6.38 x10 3/uL 1.80-7.70 N code = NT#) LYMPHOCYTE # (test 2.38 x10 3/uL 1.00-4.80 N code = LY#) MONOCYTE # (test code 1.23 x10 3/uL 0.00-0.80 H = MO#) EOSINOPHIL # (test 0.60 x10 3/uL 0.00-0.45 H code = EO#) BASOPHIL # (test code 0.08 x10 3/uL 0.0-0.20 N = BA#) - XR CHEST 1 [id number] 10:01:00 [facility] 1965 Sex: MPatient Name: RAGINI CARRILLO Unit No: [id number] EXAMS: CPT CODE: [id number] XR CHEST 1 V 34995 Chestone view AP 01/25/2022 10:00 AM CLINICAL INDICATION: Pneumonia COMPARISON: None available LOCATION: W1 IMPRESSION: Right lung base opacity is concerning for pneumonia. Left lung base opacity suggests atelectasis. Cardiomediastinal contours are within normal limits. The central pulmonary vasculature is not engorged. Support hardware is in satisfactory radiographic position. at 1001 Reported and signed by: PAU WOODARD M.D. CC: Daniel Nazario MD Technologist: Ganga Orozco Time: DAP (Gy m2): Air Kerma (mGy): Trscr Dt/Tm:01/25/2022 (1001) by:[email or web address] Printed Date/Time: 01/25/2022 (1004) Name: RAGINI CARRILLO [facility] Phys: Daniel Barcenas MD [address] : 1965 Age: 56 Sex: [place] [address] Loc: KIRANLIEN Exam Date: 01/25/2022 Status: REG REF PH: FAX: PAGE 1 Signed ReportCBC W/AUTO [id number] 07:02:00 Test Item Value Reference Range Interpretation Comments WHITE BLOOD CELL (test 11.7 x10 3/uL 4.8-10.8 H code = WBC) RED BLOOD CELL (test 2.49 x10 6/uL 4.70-6.10 L code = RBC) HEMOGLOBIN (test code 6.9 g/dL 14.0-18.0 LL Critic al Value = HGB) reported toFirs t Name:BARBARA Last Name:BARBI ORELLANA READ BACK AND VERIFIEDby [id number], on 01/25/22, @ 065 9. HEMATOCRIT (test code 21.4 % 42.0-52.0 L = HCT) MEAN CELL VOLUME (test 85.9 fL 80.0-94.0 N code = MCV) MEAN CELL HGB (test 27.7 pg 27-31 N code = MCH) MEAN CELL HGB 32.2 G/DL 33-36.5 L CONCENTRATION (test code = MCHC) RED CELL DISTRIBUTION 16.2 % 12.9-16.9 N WIDTH (test code = RDW) PLATELET COUNT (test 484 x10 3/uL 150-440 H code = PLT) MEAN PLATELET VOLUME 10.3 fL 8.9-12.4 N (test code = MPV) NEUTROPHIL % (test 63.6 % 42.2-75.2 N code = NT%) LYMPHOCYTE % (test 21.7 % 20.5-51.1 N code = LY%) MONOCYTE % (test code 8.4 % 1.7-9.3 N = MO%) EOSINOPHIL % (test 4.7 % 0.0-7.0 N code = EO%) BASOPHIL % (test code 0.6 % 0-2.5 N = BA%) NEUTROPHIL # (test 7.42 x10 3/uL 1.80-7.70 N code = NT#) LYMPHOCYTE # (test 2.54 x10 3/uL 1.00-4.80 N code = LY#) MONOCYTE # (test code 0.98 x10 3/uL 0.00-0.80 H = MO#) EOSINOPHIL # (test 0.55 x10 3/uL 0.00-0.45 H code = EO#) BASOPHIL # (test code 0.07 x10 3/uL 0.0-0.20 N = BA#) PROTHROMBIN [id number] 06:59:00 Test Item Value Reference Range Interpretation Comments PROTHROMBIN TIME 12.4 SECONDS 10.3-12.9 N PATIENT (test code = PTP) INTERNATIONAL 1.09 INR UNIT 0.9-1.11 N The INR is us eful only NORMAL RATIO (test for monit oring code = INR) anticoagulant therapy.It may be unreliable in t he initial phase o f antigoagulation and in unstable patien ts. Indication for Anticoagulation Recommended INR 1. Prevention of v enous thomboembolism 2.0-3.0in high- risk patients; treat ment of venousthrombosi s and pulmonary embol ism aftera course o f heparin; preven tion of systemicembolis m in a variety of cond itions, including atria l fibrillation an d prothetic tissu e heart valves, 2. Pros thetic mechanical hear t valves; 2.5-3.5recurren t systemic emboli sm. COMPREHENSIVE METABOLIC [id number] 06:40:00 Test Item Value Reference Range Interpretation Comments SODIUM (test code = 134 mmol/L 136-145 L Please n ote: New NA) Reference Range Aug 2020 POTASSIUM (test code 4.7 mmol/L 3.5-5.1 N = K) CHLORIDE (test code = 102 mmol/L 98-107 N Please note: New CL) Reference Range Aug 2020 CARBON DIOXIDE (test 23 mmol/L 20-31 N Please note: New code = CO2) Reference Range Aug 2020 GLUCOSE (test code = 127 mg/dL 74-106 H Please note: New GLU) Reference Range Aug 2020 BLOOD UREA NITROGEN 60 mg/dL 9-23 H Please n ote: New (test code = BUN) Reference Range Aug 2020 GLOMERULAR FILTRATION 16 mL/min >60 L Units are RATE (test code = mL/min/1.7 3m2 The GFR) estimated glome rular filtration rate is computed usingp atient race, age (>18) , sex, and serum creat inine. If anyof the ne eded data elements a re missing the Lab oratory cannot compute an estimation of t he glomerular filt ration rate. CREATININE (test code 4.20 mg/dL 0.70-1.30 H Please note: New = CREAT) Reference Range Aug 2020 TOTAL PROTEIN (test 6.3 g/dL 5.7-8.2 N Please n ote: New code = PROT) Reference Range Aug 2020 ALBUMIN (test code = 2.8 g/dL 3.2-4.8 L Please note: New ALB) Reference Range Aug 2020 CALCIUM (test code = 8.3 mg/dL 8.7-10.4 L Please note: New CA) Reference Range Aug 2020 BILIRUBIN TOTAL (test 0.4 mg/dL 0.3-1.2 N Please note: New code = BILT) Reference Range Aug 2020 SGOT/AST (test code = 105 U/L <34 H Please note: New AST) Reference Range Aug 2020 SGPT/ALT (test code = 85 U/L 10-49 H Please note: New ALT) Reference Range Aug 2020 ALKALINE PHOSPHATASE 369 U/L 46-116 H Please note: New (test code = ALKP) Reference Range Aug 2020 Spec Comments: AT START OF HEMODIALYSISLIPID PROFILE (CORONARY RISK)2022-01-25 06:40:00 Test Item Value Reference Range Interpretation Comments TRIGLYCERIDES (test 180 mg/dL <150 H Please n ote: New code = TRIG) Reference Range Aug 2020 CHOLESTEROL (test 94 mg/dL <200 N Please not e: New code = CHOL) Reference Range Aug 2020 HDL CHOLESTEROL (test < 20 mg/dL <60 N Please note: New code = HDL) Reference Range Aug 2020 LIPOPROTEIN LDL (test 49 mg/dL <100 N INTERP RETATIVE code = LDLC) DATA:LDL Choles terol: Reference RangesOptimal: <100 mg/dLNear Optim al: 100 -129 mg/dLBorde rline High: 130 - 159 mg/dLHigh: 160 - 189 mg/dLVery High: = or > 190 mg/dL CORONARY RISK FACTOR 4.00 CHOL/H DL RISK MALE: (test code = RISK) 1/2 AVG 3 .43 FEMALE: 1/2 AVG 3.27 AV G 4.97 AVG 4.44 2X AVG 9.55 2X AVG 7.05 3X AVG 23.39 3X AVG 11.04~~~~~~~~~~ ~~~~~~~ ~~~~~~~~~~~~~~~ ~~~~~~~ ~~~~~~~~~~~~~~~ ~~~~~~[facility] Education (NCEP ) Guidelines:~~~~ ~~~~~~~ ~~~~~~~~~~~~~~~ ~~~~~~~ ~~~~~~~~~~~~~~~ ~~~~~~~ ~~~~~ HDL Cholesterol<4 0mg/dL: HDL Cholesterol (Major risk factor for CHD)>60mg/dL: H DL Cholesterol (Ne gative risk factor for CHD)40-59mg/dL: Borderline Risk LDL Cholesterol<1 00mg/dL : Desirable LDL -C [id number] 0-159mg /dL: Borderline High Risk LDL-C [id number] 0-189mg /dL: High risk LDL-C concentration H DL-LDL Cholesterol is affected by a n umber of factors such as smoking, age an d sex.~~~~~~~~~~~ ~~~~~~~ ~~~~~~~~~~~~~~~ ~~~~~~~ ~~~~~~~~~~~~~~~ ~~~~~ Spec Comments: AT START OF [id number] 06:40:00 Test Item Value Reference Range Interpretation Comments PHOSPHOROUS (test code 5.6 mg/dL 2.4-5.1 H Plemichael e note: New = PHOS) Reference Range Aug 2020 Spec Comments: AT START OF [id number] 06:40:00 Test Item Value Reference Range Interpretation Comments MAGNESIUM (test code = 1.9 mg/dL 1.6-2.6 N Pleas e note: New MAG) Reference Range Aug 2020 Spec Comments: AT START OF HEMODIALYSISTHYROID STIMULATING [id number] 06:40:00 Test Item Value Reference Range Interpretation Comments THYROID STIMULATING 3.05 mIU/mL 0.55-4.78 N Please n ote: New HORMONE (test code = Referen ce Range Aug TSH) 2020 Spec Comments: AT START OF HEMODIALYSISCHEM [id number] 04:46:00 Test Item Value Reference Range Interpretation Comments Glucose Lvl (test code = Glucose Lvl) 221 70-99 [id number] 04:46:00 Test Item Value Reference Range Interpretation Comments BUN (test code = BUN) 118 7-22 [facility] [id number] 04:46:00 Test Item Value Reference Range Interpretation Comments Creatinine Lvl (test code = Creatinine 6.97 0.50-1.40 Lvl) [facility] [id number] 04:46:00 Test Item Value Reference Range Interpretation Comments Sodium Lvl (test code = Sodium Lvl) 131 135-145 [place] [id number] 04:46:00 Test Item Value Reference Range Interpretation Comments Potassium Lvl (test code = Potassium 4.7 3.5-5.1 Lvl) [place] [id number] 04:46:00 Test Item Value Reference Range Interpretation Comments Chloride Lvl (test code = Chloride Lvl) 98 95-109 [place] [id number] 04:46:00 Test Item Value Reference Range Interpretation Comments CO2 (test code = CO2) 19 24-32 [place] [id number] 04:46:00 Test Item Value Reference Range Interpretation Comments AGAP (test code = AGAP) 18.7 10.0-20.0 [place] [id number] 04:46:00 Test Item Value Reference Range Interpretation Comments Calcium Lvl (test code = Calcium Lvl) 9.0 8.5-10.5 [place] [id number] 04:46:00 Test Item Value Reference Range Interpretation Comments eGFR (test code = eGFR) 8 [place] [id number] 04:46:00 Test Item Value Reference Range Interpretation Comments Magnesium Lvl (test code = Magnesium 2.4 1.8-2.4 Lvl) [place] [id number] 04:46:00 Test Item Value Reference Range Interpretation Comments Phosphorus (test code = Phosphorus) 6.2 2.5-4.5 [place] [id number] 04:46:00 Test Item Value Reference Range Interpretation Comments Segs (test code = Segs) 66.8 45.0-75.0 [place] [address]-06-27 04:46:00 Test Item Value Reference Range Interpretation Comments Lymphocytes (test code = Lymphocytes) 20.0 20.0-40.0 [place] [address]-06-27 04:46:00 Test Item Value Reference Range Interpretation Comments Monocytes (test code = Monocytes) 8.0 2.0-12.0 [place] [address]-06-27 04:46:00 Test Item Value Reference Range Interpretation Comments Eosinophils (test code = Eosinophils) 4.4 <=4.0 [place] 324092-06-27 04:46:00 Test Item Value Reference Range Interpretation Comments Basophils (test code = Basophils) 0.8 <=1.0 [place] 324092-06-27 04:46:00 Test Item Value Reference Range Interpretation Comments Neutrophils # (test code = Neutrophils 7.9 1.5-8.1 #) [facility]et[facility]peBYPLRWJOFF2830-79-07 04:46:00 Test Item Value Reference Range Interpretation Comments Lymphocytes # (test code = Lymphocytes 2.4 1.0-5.5 #) [facility] HospitalDeyfuoiHXCGFSCYZR1778-73-00 04:46:00 Test Item Value Reference Range Interpretation Comments Monocytes # (test code = Monocytes #) 0.9 <=0.8 [place] 324092-06-27 04:46:00 Test Item Value Reference Range Interpretation Comments Eosinophils # (test code = Eosinophils 0.5 <=0.5 #) [facility] HospitalHowmebqMFEHJOASBC2501-83-91 04:46:00 Test Item Value Reference Range Interpretation Comments Basophils # (test code = Basophils #) 0.1 <=0.2 [place] 324092-06-27 04:46:00 Test Item Value Reference Range Interpretation Comments WBC (test code = WBC) 11.8 3.7-10.4 [facility] HospitalNypeveoQRZJWDRHNA4252-10-61 04:46:00 Test Item Value Reference Range Interpretation Comments RBC (test code = RBC) 2.52 4.70-6.10 [facility] HospitalRxbqriyDELXRZKGUI7872-25-71 04:46:00 Test Item Value Reference Range Interpretation Comments Hgb (test code = Hgb) 7.2 14.0-18.0 [place] 324092-06-27 04:46:00 Test Item Value Reference Range Interpretation Comments Hct (test code = Hct) 21.5 42.0-54.0 [place] 324092-06-27 04:46:00 Test Item Value Reference Range Interpretation Comments MCV (test code = MCV) 85.4 80.0-94.0 [place] 324092-06-27 04:46:00 Test Item Value Reference Range Interpretation Comments MCH (test code = MCH) 28.8 pg 27.0-31.0 [place] 324092-06-27 04:46:00 Test Item Value Reference Range Interpretation Comments MCHC (test code = MCHC) 33.7 32.0-36.0 [place] 324092-06-27 04:46:00 Test Item Value Reference Range Interpretation Comments RDW (test code = RDW) 15.8 11.5-14.5 [place] 324092-06-27 04:46:00 Test Item Value Reference Range Interpretation Comments Platelet (test code = Platelet) 454 133-450 [place] 324092-06-27 04:46:00 Test Item Value Reference Range Interpretation Comments MPV (test code = MPV) 8.1 7.4-10.4 [facility]2022-06-27 04:46:00 Test Item Value Reference Range Interpretation Comments Ca Ion WB (test code = Ca Ion WB) 1.10 1.05-1.25 [place] 959332-06-27 04:46:00 Test Item Value Reference Range Interpretation Comments Ca Ion at pH 7.4 WB (test code = Ca Ion 1.10 1.05-1.25 at pH 7.4 WB) [facility]2022-06-26 05:49:00 Test Item Value Reference Range Interpretation Comments Glucose Lvl (test code = Glucose Lvl) 290 70-99 [place] 159572-06-26 05:49:00 Test Item Value Reference Range Interpretation Comments BUN (test code = BUN) 83 7-22 [place] 159572-06-26 05:49:00 Test Item Value Reference Range Interpretation Comments Creatinine Lvl (test code = Creatinine 5.12 0.50-1.40 Lvl) [place] 159572-06-26 05:49:00 Test Item Value Reference Range Interpretation Comments Sodium Lvl (test code = Sodium Lvl) 133 135-145 [place] 159572-06-26 05:49:00 Test Item Value Reference Range Interpretation Comments Potassium Lvl (test code = Potassium 4.5 3.5-5.1 Lvl) [place] 159572-06-26 05:49:00 Test Item Value Reference Range Interpretation Comments Chloride Lvl (test code = Chloride Lvl) 102 95-109 [place] 159572-06-26 05:49:00 Test Item Value Reference Range Interpretation Comments CO2 (test code = CO2) 20 24-32 [facility]2022-06-26 05:49:00 Test Item Value Reference Range Interpretation Comments AGAP (test code = AGAP) 15.5 10.0-20.0 [place] 159572-06-26 05:49:00 Test Item Value Reference Range Interpretation Comments Calcium Lvl (test code = Calcium Lvl) 8.6 8.5-10.5 [facility]2022-06-26 05:49:00 Test Item Value Reference Range Interpretation Comments eGFR (test code = eGFR) 12 [facility] HospitalYrundoiGDDWKTMBDJ1593-03-95 05:49:00 Test Item Value Reference Range Interpretation Comments PT (test code = PT) 13.1 s 12.0-14.7 [facility] HospitalJianxmpQKESWJQAFN5675-44-89 05:49:00 Test Item Value Reference Range Interpretation Comments INR (test code = INR) 1.00 1 0.85-1.17 [place] 324092-06-26 05:49:00 Test Item Value Reference Range Interpretation Comments PTT (test code = PTT) 35.7 s 22.9-35.8 [place] 324092-06-26 05:49:00 Test Item Value Reference Range Interpretation Comments WBC (test code = WBC) 13.9 3.7-10.4 [facility] HospitalYmivgqdICSCFMGCBK3831-56-65 05:49:00 Test Item Value Reference Range Interpretation Comments RBC (test code = RBC) 2.70 4.70-6.10 [place] 324092-06-26 05:49:00 Test Item Value Reference Range Interpretation Comments Hgb (test code = Hgb) 7.8 14.0-18.0 [place] 324092-06-26 05:49:00 Test Item Value Reference Range Interpretation Comments Hct (test code = Hct) 23.0 42.0-54.0 [place] 324092-06-26 05:49:00 Test Item Value Reference Range Interpretation Comments MCV (test code = MCV) 85.4 80.0-94.0 [place] 324092-06-26 05:49:00 Test Item Value Reference Range Interpretation Comments MCH (test code = MCH) 28.9 pg 27.0-31.0 [facility] HospitalYmrpfoqRLGYNOHDKD1627-40-49 05:49:00 Test Item Value Reference Range Interpretation Comments MCHC (test code = MCHC) 33.8 32.0-36.0 [facility] HospitalJfofrewEHOWAPDXSP4187-05-44 05:49:00 Test Item Value Reference Range Interpretation Comments RDW (test code = RDW) 16.1 11.5-14.5 [facility] HospitalFfuqwfzJOROZGYRES4222-83-87 05:49:00 Test Item Value Reference Range Interpretation Comments Platelet (test code = Platelet) 464 133-450 [facility] HospitalYulmsqxOQPOWUSLYK7076-09-03 05:49:00 Test Item Value Reference Range Interpretation Comments MPV (test code = MPV) 8.3 7.4-10.4 [facility] HospitalCnbeogtDFVRKLUIZM4578-27-24 05:49:00 Test Item Value Reference Range Interpretation Comments Segs (test code = Segs) 75.3 45.0-75.0 [facility] HospitalBbqzgmnBPMYNWHFHU4979-89-32 05:49:00 Test Item Value Reference Range Interpretation Comments Lymphocytes (test code = Lymphocytes) 12.4 20.0-40.0 [facility] HospitalIrbxwvqBCEVYDWQIO2072-14-67 05:49:00 Test Item Value Reference Range Interpretation Comments Monocytes (test code = Monocytes) 7.6 2.0-12.0 [facility] HospitalWikrqodSIEDHXHGFT5561-00-30 05:49:00 Test Item Value Reference Range Interpretation Comments Eosinophils (test code = Eosinophils) 4.2 <=4.0 [facility] HospitalQkjsfbeFBLXOEYWPJ0943-16-53 05:49:00 Test Item Value Reference Range Interpretation Comments Basophils (test code = Basophils) 0.5 <=1.0 [facility] HospitalGzzkevtNUUNCWXFDB1239-16-94 05:49:00 Test Item Value Reference Range Interpretation Comments Neutrophils # (test code = Neutrophils 10.5 1.5-8.1 #) [facility] HospitalBcwioewGRTYDOWEJS0073-18-47 05:49:00 Test Item Value Reference Range Interpretation Comments Lymphocytes # (test code = Lymphocytes 1.7 1.0-5.5 #) [facility] HospitalOsuomksBLQGDZPCON0509-07-84 05:49:00 Test Item Value Reference Range Interpretation Comments Monocytes # (test code = Monocytes #) 1.1 <=0.8 [place] 324092-06-26 05:49:00 Test Item Value Reference Range Interpretation Comments Eosinophils # (test code = Eosinophils 0.6 <=0.5 #) [facility]sc[facility]OWRAWPXR1214-73-20 05:49:00 Test Item Value Reference Range Interpretation Comments Basophils # (test code = Basophils #) 0.1 <=0.2 [facility] CenterZpywvrjLNRMYKUDNXWP4283-76-85 12:48:00 Test Item Value Reference Range Interpretation Comments Potassium Lvl (test code = Potassium 4.4 3.5-5.1 Lvl) [facility]2022-06-25 08:25:00 Test Item Value Reference Range Interpretation Comments Glucose Lvl (test code = Glucose Lvl) 188 70-99 [facility]2022-06-25 08:25:00 Test Item Value Reference Range Interpretation Comments BUN (test code = BUN) 38 7-22 [place] 159572-06-25 08:25:00 Test Item Value Reference Range Interpretation Comments Creatinine Lvl (test code = Creatinine 3.15 0.50-1.40 Lvl) [facility]2022-06-25 08:25:00 Test Item Value Reference Range Interpretation Comments Sodium Lvl (test code = Sodium Lvl) 137 135-145 [facility]2022-06-25 08:25:00 Test Item Value Reference Range Interpretation Comments Chloride Lvl (test code = Chloride Lvl) 105 95-109 [place] 159572-06-25 08:25:00 Test Item Value Reference Range Interpretation Comments CO2 (test code = CO2) 22 24-32 [place] 159572-06-25 08:25:00 Test Item Value Reference Range Interpretation Comments Calcium Lvl (test code = Calcium Lvl) 8.6 8.5-10.5 [facility]2022-06-25 08:25:00 Test Item Value Reference Range Interpretation Comments AGAP (test code = AGAP) 14.1 10.0-20.0 [place] 159572-06-25 08:25:00 Test Item Value Reference Range Interpretation Comments eGFR (test code = eGFR) 21 [facility]2022-06-25 08:25:00 Test Item Value Reference Range Interpretation Comments Magnesium Lvl (test code = Magnesium 2.1 1.8-2.4 Lvl) [place] 159572-06-25 08:25:00 Test Item Value Reference Range Interpretation Comments Phosphorus (test code = Phosphorus) 3.8 2.5-4.5 [place] 159572-06-25 08:25:00 Test Item Value Reference Range Interpretation Comments Total Protein (test code = Total 7.4 6.4-8.4 Protein) [place] 159572-06-25 08:25:00 Test Item Value Reference Range Interpretation Comments Albumin Lvl (test code = Albumin Lvl) 1.3 3.5-5.0 [place] [address]-06-25 08:25:00 Test Item Value Reference Range Interpretation Comments ALT (test code = ALT) 66 <=65 [place] [address]-06-25 08:25:00 Test Item Value Reference Range Interpretation Comments AST (test code = AST) 79 <=37 [place] 159572-06-25 08:25:00 Test Item Value Reference Range Interpretation Comments Alk Phos (test code = Alk Phos) 373 39-136 [place] 159572-06-25 08:25:00 Test Item Value Reference Range Interpretation Comments Bili Total (test code = Bili Total) 0.5 0.2-1.3 [place] 159572-06-25 08:25:00 Test Item Value Reference Range Interpretation Comments Bili Direct (test code = Bili Direct) 0.2 <=0.3 [place] [address]-06-25 08:25:00 Test Item Value Reference Range Interpretation Comments Bili Indirect (test code = Bili 0.3 <=1.0 Indirect) [place] 159572-06-25 08:25:00 Test Item Value Reference Range Interpretation Comments Globulin (test code = Globulin) 6.1 2.7-4.2 [place] 159572-06-25 08:25:00 Test Item Value Reference Range Interpretation Comments A/G Ratio (test code = A/G Ratio) 0.2 1 0.7-1.6 [place] [address]-06-25 08:25:00 Test Item Value Reference Range Interpretation Comments WBC (test code = WBC) 15.5 3.7-10.4 [place] 324092-06-25 08:25:00 Test Item Value Reference Range Interpretation Comments RBC (test code = RBC) 2.56 4.70-6.10 [place] 324092-06-25 08:25:00 Test Item Value Reference Range Interpretation Comments Hgb (test code = Hgb) 7.1 14.0-18.0 [place] [address]-06-25 08:25:00 Test Item Value Reference Range Interpretation Comments Hct (test code = Hct) 21.5 42.0-54.0 [place] 324092-06-25 08:25:00 Test Item Value Reference Range Interpretation Comments MCV (test code = MCV) 83.8 80.0-94.0 [place] 324092-06-25 08:25:00 Test Item Value Reference Range Interpretation Comments MCH (test code = MCH) 27.7 pg 27.0-31.0 [place] 324092-06-25 08:25:00 Test Item Value Reference Range Interpretation Comments MCHC (test code = MCHC) 33.1 32.0-36.0 [place] 324092-06-25 08:25:00 Test Item Value Reference Range Interpretation Comments RDW (test code = RDW) 16.1 11.5-14.5 [place] 324092-06-25 08:25:00 Test Item Value Reference Range Interpretation Comments Platelet (test code = Platelet) 483 133-450 [place] 324092-06-25 08:25:00 Test Item Value Reference Range Interpretation Comments MPV (test code = MPV) 8.4 7.4-10.4 [place] 324092-06-25 08:25:00 Test Item Value Reference Range Interpretation Comments Segs (test code = Segs) 69.4 45.0-75.0 [place] 324092-06-25 08:25:00 Test Item Value Reference Range Interpretation Comments Lymphocytes (test code = Lymphocytes) 16.2 20.0-40.0 [place] [address]-06-25 08:25:00 Test Item Value Reference Range Interpretation Comments Monocytes (test code = Monocytes) 10.1 2.0-12.0 [place] [address]-06-25 08:25:00 Test Item Value Reference Range Interpretation Comments Eosinophils (test code = Eosinophils) 3.5 <=4.0 [facility] HospitalEavbihhHNDOOWHXLL1632-00-45 08:25:00 Test Item Value Reference Range Interpretation Comments Basophils (test code = Basophils) 0.8 <=1.0 [facility] HospitalGirathaHWUOSARJUS6777-53-40 08:25:00 Test Item Value Reference Range Interpretation Comments Neutrophils # (test code = Neutrophils 10.7 1.5-8.1 #) [facility] HospitalTqbfbwvWJQCMCNWTU0954-32-98 08:25:00 Test Item Value Reference Range Interpretation Comments Lymphocytes # (test code = Lymphocytes 2.5 1.0-5.5 #) [facility] HospitalJeixspyYQGFYNWZTW5965-36-67 08:25:00 Test Item Value Reference Range Interpretation Comments Monocytes # (test code = Monocytes #) 1.6 <=0.8 [place] 324092-06-25 08:25:00 Test Item Value Reference Range Interpretation Comments Eosinophils # (test code = Eosinophils 0.5 <=0.5 #) [facility] HospitalMbigzmeRBXOZZLUQZ1506-62-79 08:25:00 Test Item Value Reference Range Interpretation Comments Basophils # (test code = Basophils #) 0.1 <=0.2 [facility] HospitalJvvpmxaESIQRZYJQA0962-96-09 16:59:00 Test Item Value Reference Range Interpretation Comments F5 Leiden PCR (test Negative (01/21/22 11:59 code = F5 Leiden PCR) AM) [facility] HospitalLmalabdJGJPLWBJZR7704-26-47 16:59:00 Test Item Value Reference Range Interpretation Comments F5 Leiden Intrp (test code = F5 see note Leiden Intrp) [facility] HospitalYwqmgaiKWLCTBAOKM6572-06-64 16:59:00 Test Item Value Reference Range Interpretation Comments APC Resist (test code = APC Resist) 3.0 [facility] HospitalUfirhmiBXJBQXBQEZ3686-04-75 16:59:00 Test Item Value Reference Range Interpretation Comments F2 Mutation PCR (test Negative (01/21/22 code = F2 Mutation PCR) 11:59 AM) [facility] HospitalBlgdycbLOBDBXOIXD0462-77-96 16:59:00 Test Item Value Reference Range Interpretation Comments F2 Mut Interp (test code = F2 Mut see note Interp) [facility] HospitalEhoetdgTQPOGSOSVA2821-00-69 16:59:00 Test Item Value Reference Range Interpretation Comments Protein S Func (test code = Protein S 72 54-137 Func) [facility]FehkwziXCQGKVRAHR8412-19-79 16:59:00 Test Item Value Reference Range Interpretation Comments Protein C Func (test code = Protein C 82 72-147 Func) [facility] HospitalEbeqrdaRZXJVKYESM7662-64-56 16:59:00 Test Item Value Reference Range Interpretation Comments AT III Func (test code = AT III Func) 122 77-140 [facility]IqwlboaMTOEZBPGDL2529-21-28 16:59:00 Test Item Value Reference Range Interpretation Comments Cardiolipin IgA (test code = 8.4 Cardiolipin IgA) [facility] CenterMakmzfjXXAPFXAIKE0820-95-77 16:59:00 Test Item Value Reference Range Interpretation Comments Cardiolipin IgG (test code = no gt Cardiolipin IgG) [facility] CenterDmdpfwwSSYNVPQCTY7524-01-00 16:59:00 Test Item Value Reference Range Interpretation Comments Cardiolipin IgM (test code = 8.4 Cardiolipin IgM) [facility] CenterRrftqiqPXRHEQBKTQ7930-50-53 16:59:00 Test Item Value Reference Range Interpretation Comments Homocyst Tot (test code = Homocyst Tot) 8.9 3.7-13.9 [facility] IITFPTL1511[facility]44-86 09:26:00 Test Item Value Reference Range Interpretation Comments RBC product (test code Product available = RBC product) (01/21/22 4:26 AM) [facility]Girl[facility] [id number] 08:24:00 Test Item Value Reference Range Interpretation Comments Phosphorus (test code = Phosphorus) 3.9 2.5-4.5 [facility] UYPTQ2506-29-29 08:24:00 Test Item Value Reference Range Interpretation Comments Magnesium Lvl (test code = Magnesium 2.4 1.8-2.4 Lvl) [facility] [id number] 08:24:00 Test Item Value Reference Range Interpretation Comments Total Protein (test code = Total 7.3 6.4-8.4 Protein) [facility] EVQHL2856-16-30 08:24:00 Test Item Value Reference Range Interpretation Comments Albumin Lvl (test code = Albumin Lvl) 1.2 3.5-5.0 [facility] [id number] 08:24:00 Test Item Value Reference Range Interpretation Comments ALT (test code = ALT) 62 <=65 [facility] [place] 662252-06-24 08:24:00 Test Item Value Reference Range Interpretation Comments AST (test code = AST) 72 <=37 [place] [address]-06-24 08:24:00 Test Item Value Reference Range Interpretation Comments Alk Phos (test code = Alk Phos) 391 39-136 [place] [address]-06-24 08:24:00 Test Item Value Reference Range Interpretation Comments Bili Total (test code = Bili Total) 0.6 0.2-1.3 [place] [address]-06-24 08:24:00 Test Item Value Reference Range Interpretation Comments Bili Direct (test code = Bili Direct) 0.2 <=0.3 [address]06-24 08:24:00 Test Item Value Reference Range Interpretation Comments Bili Indirect (test code = Bili 0.4 <=1.0 Indirect) [address]06-24 08:24:00 Test Item Value Reference Range Interpretation Comments Globulin (test code = Globulin) 6.1 2.7-4.2 [place] 159572-06-24 08:24:00 Test Item Value Reference Range Interpretation Comments A/G Ratio (test code = A/G Ratio) 0.2 1 0.7-1.[address]06-24 08:24:00 Test Item Value Reference Range Interpretation Comments PT (test code = PT) 14.2 s 12.0-14.7 [place] [address]-06-24 08:24:00 Test Item Value Reference Range Interpretation Comments INR (test code = INR) 1.11 1 0.85-1.17 [place] [address]-06-24 08:24:00 Test Item Value Reference Range Interpretation Comments PTT (test code = PTT) 36.6 s 22.9-35.8 [facility]2022-06-23 18:53:00 Test Item Value Reference Range Interpretation Comments Iron (test code = Iron) 28 [facility]2022-06-23 18:53:00 Test Item Value Reference Range Interpretation Comments TIBC (test code = TIBC) 200 [facility]2022-06-23 18:53:00 Test Item Value Reference Range Interpretation Comments % Satur Fe (test code = % Satur Fe) 14 [facility] HospitalEqeyarbFEVUYLOGHM4044-30-32 15:56:00 Test Item Value Reference Range Interpretation Comments PT (test code = PT) 14.4 s 12.0-14.7 [place] 324092-06-23 15:56:00 Test Item Value Reference Range Interpretation Comments INR (test code = INR) 1.13 1 0.85-1.17 [place] [address]-06-23 15:56:00 Test Item Value Reference Range Interpretation Comments PTT (test code = PTT) 46.4 s 22.9-35.8 [place] 159572-06-23 09:22:00 Test Item Value Reference Range Interpretation Comments Total Protein (test code = Total 7.3 6.4-8.4 Protein) [place] 159572-06-23 09:22:00 Test Item Value Reference Range Interpretation Comments Albumin Lvl (test code = Albumin Lvl) 1.3 3.5-5.0 [place] 159572-06-23 09:22:00 Test Item Value Reference Range Interpretation Comments ALT (test code = ALT) 78 <=65 [place] 159572-06-23 09:22:00 Test Item Value Reference Range Interpretation Comments AST (test code = AST) 105 <=37 [place] 159572-06-23 09:22:00 Test Item Value Reference Range Interpretation Comments Alk Phos (test code = Alk Phos) 432 39-136 [place] 159572-06-23 09:22:00 Test Item Value Reference Range Interpretation Comments Bili Total (test code = Bili Total) 0.6 0.2-1.3 [place] 159572-06-23 09:22:00 Test Item Value Reference Range Interpretation Comments Bili Direct (test code = Bili Direct) 0.3 <=0.3 [place] 159572-06-23 09:22:00 Test Item Value Reference Range Interpretation Comments Bili Indirect (test code = Bili 0.3 <=1.0 Indirect) [place] 159572-06-23 09:22:00 Test Item Value Reference Range Interpretation Comments Globulin (test code = Globulin) 6.0 2.7-4.2 [place] 159572-06-23 09:22:00 Test Item Value Reference Range Interpretation Comments A/G Ratio (test code = A/G Ratio) 0.2 1 0.7-1.6 [facility] AND [id number] 19:27:00 Test Item Value Reference Range Interpretation Comments Occult Bld Stl (test Positive *ABN*(01/19/22 code = Occult Bld Stl) 2:27 PM) [facility] AND [id number] 15:27:00 Test Item Value Reference Range Interpretation Comments UA Color (test code = Lizzeth *ABN*(01/19/22 UA Color) 10:27 AM) [facility] AND [id number] 15:27:00 Test Item Value Reference Range Interpretation Comments UA Turbidity (test code Marked *ABN*(01/19/22 = UA Turbidity) 10:27 AM) [facility] AND [id number] 15:27:00 Test Item Value Reference Range Interpretation Comments UA Spec Grav (test code = UA Spec 1.021 1 Grav) [facility] AND [id number] 15:27:00 Test Item Value Reference Range Interpretation Comments UA pH (test code = UA pH) 5.0 1 5.0-8.0 [facility] AND [id number] 15:27:00 Test Item Value Reference Range Interpretation Comments UA Protein (test code = UA Protein) 100 mg/dL [facility] AND [id number] 15:27:00 Test Item Value Reference Range Interpretation Comments UA Glucose (test code = UA Negative mg/dL Glucose) [facility] AND [id number] 15:27:00 Test Item Value Reference Range Interpretation Comments UA Ketones (test code = UA Negative mg/dL Ketones) [facility] [id number] 15:27:00 Test Item Value Reference Range Interpretation Comments UA Bili (test code = Negative *NA*(01/19/22 UA Bili) 10:27 AM) [facility] AND [id number] 15:27:00 Test Item Value Reference Range Interpretation Comments UA Blood (test code = Moderate *ABN*(01/19/22 UA Blood) 10:27 AM) [facility] AND [id number] 15:27:00 Test Item Value Reference Range Interpretation Comments UA Urobilinogen (test code = UA no gt 0.1-1.0 Urobilinogen) [facility] [id number] 15:27:00 Test Item Value Reference Range Interpretation Comments UA Nitrite (test code Negative (01/19/22 10:27 = UA Nitrite) AM) [facility] AND [id number] 15:27:00 Test Item Value Reference Range Interpretation Comments UA Leuk Est (test Moderate *ABN*(01/19/22 code = UA Leuk Est) 10:27 AM) [facility]ann[facility] [id number] 15:27:00 Test Item Value Reference Range Interpretation Comments UA WBC (test code = UA WBC) 120 <=5 [facility] AND [id number] 15:27:00 Test Item Value Reference Range Interpretation Comments UA RBC (test code = UA RBC) 6 <=2 [facility] AND [id number] 15:27:00 Test Item Value Reference Range Interpretation Comments UA Bacteria (test code = UA Occasional /HPF Bacteria) [facility] AND [id number] 15:27:00 Test Item Value Reference Range Interpretation Comments UA [place] Yeast (test code = UA Occasional /HPF [place] Yeast) [facility] AND [id number] 15:27:00 Test Item Value Reference Range Interpretation Comments UA Sq Epi (test code = UA Sq Epi) None Seen [facility]annCulture: [id number] 15:27:00 Test Item Value Reference Range Interpretation Comments Culture: Urine (test 10,000 - 50,000 CFU/mL code = Culture: Urine) Yeast [facility] [id number] 14:46:00 Test Item Value Reference Range Interpretation Comments Iron (test code = Iron) 44 [facility] [id number] 14:46:00 Test Item Value Reference Range Interpretation Comments TIBC (test code = TIBC) 237 [facility] [id number] 14:46:00 Test Item Value Reference Range Interpretation Comments % Satur Fe (test code = % Satur Fe) 19 [facility] [id number] 14:46:00 Test Item Value Reference Range Interpretation Comments Ferritin Lvl (test code = Ferritin Lvl) [phone] [facility] [id number] 14:46:00 Test Item Value Reference Range Interpretation Comments Vitamin B12 Lvl (test code = Vitamin 556 B12 Lvl) [facility] [id number] 13:18:00 Test Item Value Reference Range Interpretation Comments Folate Lvl (test code = Folate Lvl) 7.5 [facility] [id number] 13:18:00 Test Item Value Reference Range Interpretation Comments Procalcitonin Lvl (test code = 3.57 <=0.10 Procalcitonin Lvl) [facility] [id number] 13:08:00 Test Item Value Reference Range Interpretation Comments Lactic Acid Lvl (test code = Lactic 1.0 0.5-2.2 Acid Lvl) [facility] CenterbhavinTOBRAMYCIN:SUSC:PT:ISOLATE:ORDQN:[id number] 11:42:00 Test Item Value Reference Range Interpretation Comments Gram Stain Report Gram Stain Performed By: (test code = Gram [facility] Stain Report) [facility] YinVibhaCIN:SUSC:PT:ISOLATE:ORDQN:[id number] 11:42:00 Test Item Value Reference Range Interpretation Comments Culture: Respiratory Many Pseudomonas w/Gram Stain (test code aeruginosa = Culture: Respiratory w/Gram Stain) [facility] CenterSINDIBRAMYCIN:SUSC:PT:ISOLATE:ORDQN:[id number] 11:42:00 Test Item Value Reference Range Interpretation Comments Pseudomonas aeruginosa Pseudomonas aeruginosa (test code = Pseudomonas aeruginosa) [facility] CenterON TARGET LABORATORIESProtégé Biomedical [facility] [id number] 08:00:00 Test Item Value Reference Range Interpretation Comments ABO/Rh (test code = ABO/Rh) O NEG [facility] [employer] [id number] 08:00:00 Test Item Value Reference Range Interpretation Comments Antibody Scrn (test Negative (01/19/22 3:00 code = Antibody Scrn) AM) [facility] CenterON TARGET LABORATORIESTittat [id number] 07:40:00 Test Item Value Reference Range Interpretation Comments RBC product (test code Product available = RBC product) (01/19/22 2:40 AM) [facility] CenterBACTERIAL - [id number] 05:52:00 Test Item Value Reference Range Interpretation Comments MRSA by PCR (test Negative (01/19/22 12:52 code = MRSA by PCR) AM) [place] 324092-06-22 05:52:00 Test Item Value Reference Range Interpretation Comments Bands (test code = Bands) 1.0 <=11.0 [place] 324092-06-22 05:52:00 Test Item Value Reference Range Interpretation Comments Metamyelocytes (test code = 1.0 <=1.0 Metamyelocytes) [place] 324092-06-22 05:52:00 Test Item Value Reference Range Interpretation Comments Atypical Lymphs (test code = Atypical 0.0 Lymphs) [place] [address]-06-22 05:52:00 Test Item Value Reference Range Interpretation Comments Plt Morph (test code = Normal (01/19/22 12:52 Plt Morph) AM) [place] 324092-06-22 05:52:00 Test Item Value Reference Range Interpretation Comments Large Plt (test code Moderate *ABN*(01/19/22 = Large Plt) 12:52 AM) [facility]2022-06-22 05:52:00 Test Item Value Reference Range Interpretation Comments Ca Ion WB (test code = Ca Ion WB) 1.09 1.05-1.25 [place] [id number] 05:52:00 Test Item Value Reference Range Interpretation Comments Ca Ion at pH 7.4 WB (test code = Ca Ion 1.10 1.05-1.25 at pH 7.4 WB) [facility] [id number] 04:29:00 Test Item Value Reference Range Interpretation Comments Bands (test code = Bands) 1.0 <=11.0 [place] [address]-06-21 04:29:00 Test Item Value Reference Range Interpretation Comments Metamyelocytes (test code = 1.0 <=1.0 Metamyelocytes) [place] 324092-06-21 04:29:00 Test Item Value Reference Range Interpretation Comments Atypical Lymphs (test code = Atypical 0.0 Lymphs) [place] 324092-06-21 04:29:00 Test Item Value Reference Range Interpretation Comments Plt Morph (test code = Normal (01/17/22 11:29 Plt Morph) PM) [place] 324092-06-21 04:29:00 Test Item Value Reference Range Interpretation Comments Polychrom (test code = Moderate *ABN*(01/17/22 Polychrom) 11:29 PM) [facility] [id number] 04:29:00 Test Item Value Reference Range Interpretation Comments Ca Ion WB (test code = Ca Ion WB) 1.05 1.05-1.25 [facility] CenterRO[facility] [id number] 04:29:00 Test Item Value Reference Range Interpretation Comments Ca Ion at pH 7.4 WB (test code = Ca Ion 1.09 1.05-1.25 at pH 7.4 WB) [facility] [id number] 21:10:00 Test Item Value Reference Range Interpretation Comments Bands (test code = Bands) 2.0 <=11.0 [facility] Hos[id number] 21:10:00 Test Item Value Reference Range Interpretation Comments Metamyelocytes (test code = 1.0 <=1.0 Metamyelocytes) [facility] Hospit[id number] 21:10:00 Test Item Value Reference Range Interpretation Comments Myelocytes (test code = Myelocytes) 1.0 [facility] HospitalMtzfsmdQIXNFHRAHX6544-75-28 21:10:00 Test Item Value Reference Range Interpretation Comments Atypical Lymphs (test code = Atypical 0.0 Lymphs) [facility] HospitalNwyqlxiNBSZAMJBBZ2870-40-02 21:10:00 Test Item Value Reference Range Interpretation Comments Hypochrom (test code = 1+ (01/17/22 4:10 PM) Hypochrom) [facility] Hos[id number] 21:10:00 Test Item Value Reference Range Interpretation Comments Polychrom (test code = Moderate *ABN*(01/17/22 Polychrom) 4:10 PM) [facility] HospitalHvxagcxPGXDLWHDUS4029-16-83 21:10:00 Test Item Value Reference Range Interpretation Comments Rouleaux (test code = Present *ABN*(01/17/22 Rouleaux) 4:10 PM) [facility] [id number] 08:14:00 Test Item Value Reference Range Interpretation Comments RBC product (test code Product available = RBC product) (01/17/22 3:14 AM) [facility] Center[facility] [id number] 07:10:00 Test Item Value Reference Range Interpretation Comments ABO/Rh (test code = ABO/Rh) O NEG [facility] [id number] 07:10:00 Test Item Value Reference Range Interpretation Comments Antibody Scrn (test Negative (01/17/22 2:10 code = Antibody Scrn) AM) [facility] Hospit[id number] 05:42:00 Test Item Value Reference Range Interpretation Comments Plt Morph (test code = Clumped (01/17/22 12:42 Plt Morph) AM) [facility] Hos[id number] 05:42:00 Test Item Value Reference Range Interpretation Comments Anisocyte (test code = 1+ *ABN*(01/17/22 Anisocyte) 12:42 AM) [facility] HospitalXjtxsiyIPZLYHQOZO2161-36-26 05:42:00 Test Item Value Reference Range Interpretation Comments Hypochrom (test code = 1+ (01/17/22 12:42 Hypochrom) AM) [facility]2022-06-17 04:51:00 Test Item Value Reference Range Interpretation Comments Procalcitonin Lvl (test code = 3.21 <=0.10 Procalcitonin Lvl) [facility] HospitalQ[id number] 04:50:00 Test Item Value Reference Range Interpretation Comments Myelocytes (test code = Myelocytes) 1.0 [facility] HospitalPntjlusAJUSVZEWMN8301-99-53 04:50:00 Test Item Value Reference Range Interpretation Comments Anisocyte (test code = 1+ *ABN*(01/13/22 Anisocyte) 11:50 PM) [facility] Ho[id number] 04:50:00 Test Item Value Reference Range Interpretation Comments Hypochrom (test code = 1+ (01/13/22 11:50 Hypochrom) PM) [facility] HospitalTnxxgbvMUZRHCVVHP0057-68-15 04:50:00 Test Item Value Reference Range Interpretation Comments Large Plt (test code Moderate *ABN*(01/13/22 = Large Plt) 11:50 PM) [facility] CenterBekwdbuVLTZFMUFVN4286-07-40 05:00:00 Test Item Value Reference Range Interpretation Comments Vancomycin AUC (test code = Vancomycin 25.0 AUC) [facility]2022-06-15 19:05:00 Test Item Value Reference Range Interpretation Comments Lipase Lvl (test code = Lipase Lvl) 74 73-393 [facility] CenterannCHEM [id number] 19:05:00 Test Item Value Reference Range Interpretation Comments Amylase Lvl (test code = Amylase Lvl) 36 25-115 [facility] CenterIjxrvfmWBNQSLJAGD1505-20-85 19:05:00 Test Item Value Reference Range Interpretation Comments Vancomycin AUC (test code = Vancomycin 7.1 AUC) [facility] CenterGram Stain [id number] 16:48:00 Test Item Value Reference Range Interpretation Comments Gram Stain Report Gram Stain Performed By: (test code = Gram [facility] Stain Report) [facility] CenterCulture: Respiratory w/Gram [id number] 16:48:00 Test Item Value Reference Range Interpretation Comments Culture: Respiratory Few Gram Negative Rods w/Gram Stain (test Refer To Culture # code = Culture: [id number] Collected Respiratory w/Gram On: 01-12-22 For Stain) Identification And Susceptibility Results , Normal Respiratory [place] Isolated [facility] Hospit[id number] 11:24:00 Test Item Value Reference Range Interpretation Comments Myelocytes (test code = Myelocytes) 2.0 [facility] HospitalUwkmzbyMCSBURQXTH7814-76-26 11:24:00 Test Item Value Reference Range Interpretation Comments RBC Morph (test code = Normal (01/12/22 6:24 RBC Morph) AM) [facility] CenterBltxlazMLGCWVCZZS9128-53-12 11:24:00 Test Item Value Reference Range Interpretation Comments Tot Cell Ct (test code = Tot Cell Ct) 200 1 [facility] CenterBbkeotpUQTIXTVTWA6130-71-85 11:24:00 Test Item Value Reference Range Interpretation Comments Vanco Lvl (test code = Vanco Lvl) 32.1 [facility] CenterannBACTERIAL - [id number] 09:55:00 Test Item Value Reference Range Interpretation Comments MRSA by PCR (test Negative (01/11/22 4:55 code = MRSA by PCR) AM) [facility] CenterannURINE AND [id number] 09:49:00 Test Item Value Reference Range Interpretation Comments UA Color (test code = Yellow *NA*(01/11/22 UA Color) 4:49 AM) [facility] CenterannURINE AND [id number] 09:49:00 Test Item Value Reference Range Interpretation Comments UA Turbidity (test code Marked *ABN*(01/11/22 = UA Turbidity) 4:49 AM) [facility] AND [id number] 09:49:00 Test Item Value Reference Range Interpretation Comments UA Spec Grav (test code = UA Spec 1.016 1 Grav) [facility] AND [id number] 09:49:00 Test Item Value Reference Range Interpretation Comments UA pH (test code = UA pH) 5.0 1 5.0-8.0 [facility] AND [id number] 09:49:00 Test Item Value Reference Range Interpretation Comments UA Protein (test code = UA Protein) 100 mg/dL [facility] AND [id number] 09:49:00 Test Item Value Reference Range Interpretation Comments UA Glucose (test code = UA Negative mg/dL Glucose) [facility] AND [id number] 09:49:00 Test Item Value Reference Range Interpretation Comments UA Ketones (test code = UA Negative mg/dL Ketones) [facility] AND [id number] 09:49:00 Test Item Value Reference Range Interpretation Comments UA Bili (test code = Negative *NA*(01/11/22 UA Bili) 4:49 AM) [facility] AND [id number] 09:49:00 Test Item Value Reference Range Interpretation Comments UA Blood (test code = Moderate *ABN*(01/11/22 UA Blood) 4:49 AM) [facility] AND [id number] 09:49:00 Test Item Value Reference Range Interpretation Comments UA Urobilinogen (test code = UA no gt 0.1-1.0 Urobilinogen) [facility] AND [id number] 09:49:00 Test Item Value Reference Range Interpretation Comments UA Nitrite (test code Negative (01/11/22 4:49 = UA Nitrite) AM) [facility] AND [id number] 09:49:00 Test Item Value Reference Range Interpretation Comments UA Leuk Est (test Moderate *ABN*(01/11/22 code = UA Leuk Est) 4:49 AM) [facility] AND [id number] 09:49:00 Test Item Value Reference Range Interpretation Comments UA WBC (test code = UA WBC) 38 <=5 [facility] [id number] 09:49:00 Test Item Value Reference Range Interpretation Comments UA RBC (test code = UA RBC) 60 <=2 [facility] [id number] 09:49:00 Test Item Value Reference Range Interpretation Comments UA Bacteria (test code = UA Few /HPF Bacteria) [facility] [id number] 09:49:00 Test Item Value Reference Range Interpretation Comments UA Amorph Alyssa (test code = Occasional /HPF UA Amorph Alyssa) [facility] [id number] 09:49:00 Test Item Value Reference Range Interpretation Comments UA [place] Yeast (test code = UA [place] Many /HPF Yeast) [facility] [id number] 09:49:00 Test Item Value Reference Range Interpretation Comments UA Sq Epi (test code = UA Sq Epi) None [facility]en [facility]Culture: [id number] 09:40:00 Test Item Value Reference Range Interpretation Comments Culture: Urine (test 50,000 - 100,000 code = Culture: Urine) CFU/mL [facility] [id number] 06:22:00 Test Item Value Reference Range Interpretation Comments Procalcitonin Lvl (test code = 4.23 <=0.10 Procalcitonin Lvl) [facility] [id number] 09:40:00 Test Item Value Reference Range Interpretation Comments UA Color (test code = Red *ABN*(01/09/22 4:40 UA Color) AM) [facility] [id number] 09:40:00 Test Item Value Reference Range Interpretation Comments UA Turbidity (test code Marked *ABN*(01/09/22 = UA Turbidity) 4:40 AM) [facility] [id number] 09:40:00 Test Item Value Reference Range Interpretation Comments UA Spec Grav (test code = UA Spec 1.019 1 Grav) [facility] [id number] 09:40:00 Test Item Value Reference Range Interpretation Comments UA pH (test code = UA pH) 5.0 1 5.0-8.0 [facility] [id number] 09:40:00 Test Item Value Reference Range Interpretation Comments UA Protein (test code = UA Protein) 100 mg/dL [facility] [id number] 09:40:00 Test Item Value Reference Range Interpretation Comments UA Ketones (test code = UA Negative mg/dL Ketones) [facility] [id number] 09:40:00 Test Item Value Reference Range Interpretation Comments UA Bili (test code = Negative *NA*(01/09/22 UA Bili) 4:40 AM) [facility] [id number] 09:40:00 Test Item Value Reference Range Interpretation Comments UA Blood (test code = Moderate *ABN*(01/09/22 UA Blood) 4:40 AM) [facility] [id number] 09:40:00 Test Item Value Reference Range Interpretation Comments UA Urobilinogen (test code = UA no gt 0.1-1.0 Urobilinogen) [facility] [id number] 09:40:00 Test Item Value Reference Range Interpretation Comments UA Nitrite (test code Negative (01/09/22 4:40 = UA Nitrite) AM) [facility] [id number] 09:40:00 Test Item Value Reference Range Interpretation Comments UA Leuk Est (test Moderate *ABN*(01/09/22 code = UA Leuk Est) 4:40 AM) [facility] [id number] 09:40:00 Test Item Value Reference Range Interpretation Comments UA WBC (test code = UA WBC) no gt <=5 [facility] [id number] 09:40:00 Test Item Value Reference Range Interpretation Comments UA RBC (test code = UA RBC) no gt <=2 [facility] [id number] 09:40:00 Test Item Value Reference Range Interpretation Comments UA Bacteria (test code = UA Moderate /HPF Bacteria) [facility] [id number] 09:40:00 Test Item Value Reference Range Interpretation Comments UA Amorph Alyssa (test code = Occasional /HPF UA Amorph Alyssa) [facility] [id number] 09:40:00 Test Item Value Reference Range Interpretation Comments UA [place] Yeast (test code = UA [place] Many /HPF Yeast) [facility] [id number] 09:40:00 Test Item Value Reference Range Interpretation Comments UA Sq Epi (test code = UA Sq Epi) None Seen [facility] [id number] 09:40:00 Test Item Value Reference Range Interpretation Comments UA Glucose (test code = UA Glucose) 50mg/dl [facility] CenterCHEM [id number] 07:43:00 Test Item Value Reference Range Interpretation Comments Lactic Acid Lvl (test code = Lactic 1.6 0.5-2.2 Acid Lvl) [facility] CenterannOXACILLIN:SUSC:PT:ISOLATE:ORDQN:[id number] 06:36:00 Test Item Value Reference Range Interpretation Comments Gram Stain Report Gram Stain Performed By: (test code = Gram [facility] Stain Report) [facility] CenterannOXACILLIN:SUSC:PT:ISOLATE:ORDQN:[id number] 06:36:00 Test Item Value Reference Range Interpretation Comments Culture: Respiratory Few Enterobacter cloacae w/Gram Stain (test Moderate Staphylococcus code = Culture: aureus Respiratory w/Gram Stain) [facility] CenterannOXACILLIN:SUSC:PT:ISOLATE:ORDQN:[id number] 06:36:00 Test Item Value Reference Range Interpretation Comments Staphylococcus aureus Staphylococcus aureus (test code = Staphylococcus aureus) [facility] CenterannOXACILLIN:SUSC:PT:ISOLATE:ORDQN:[id number] 06:36:00 Test Item Value Reference Range Interpretation Comments Enterobacter cloacae Enterobacter cloacae (test code = Enterobacter cloacae) [facility] [id number] 23:13:00 Test Item Value Reference Range Interpretation Comments Hep Bs Ag (test code Negative *NA*(01/07/22 = Hep Bs Ag) 6:13 PM) [facility] [id number] 07:06:00 Test Item Value Reference Range Interpretation Comments Vanco Lvl (test code = Vanco Lvl) 16.4 [facility] CenterProt[facility] [id number] 18:39:00 Test Item Value Reference Range Interpretation Comments ABO/Rh (test code = ABO/Rh) O NEG [facility] [id number] 18:39:00 Test Item Value Reference Range Interpretation Comments Antibody Scrn (test Negative (01/06/22 1:39 code = Antibody Scrn) PM) [facility] CenterY[id number] 08:53:00 Test Item Value Reference Range Interpretation Comments Vancomycin AUC (test code = Vancomycin 24.9 AUC) [facility] CenterannIMETHOPRIM+SULFAMETHOXAZOLE:SUSC:PT:ISOLATE:ORDQN:DAYLIN 2022-01-04 17:44:00 Test Item Value Reference Range Interpretation Comments Gram Stain Report Gram Stain Performed By: (test code = Gram [facility] Stain Report) [facility] CenterannIMETHOPRIM+SULFAMETHOXAZOLE:SUSC:PT:ISOLATE:ORDQN:DAYLIN 2022-01-04 17:44:00 Test Item Value Reference Range Interpretation Comments Culture: Respiratory Many Staphylococcus w/Gram Stain (test aureus Normal code = Culture: Respiratory [place] Respiratory w/Gram Isolated Stain) [facility] HospitalIMETHOPRIM+SULFAMETHOXAZOLE:SUSC:PT:ISOLATE:ORDQN:DAYLIN 2022-01-04 17:44:00 Test Item Value Reference Range Interpretation Comments Staphylococcus aureus Staphylococcus aureus (test code = Staphylococcus aureus) [facility] CenterRentlord [id number] 05:28:00 Test Item Value Reference Range Interpretation Comments Glucose Lvl (test code = Glucose Lvl) 75 70-99 [facility] CenterR[facility] [id number] 05:28:00 Test Item Value Reference Range Interpretation Comments BUN (test code = BUN) 54 7-22 [facility] [employer] [id number] 05:28:00 Test Item Value Reference Range Interpretation Comments Creatinine Lvl (test code = Creatinine 3.97 0.50-1.40 Lvl) [facility] CenterR[facility] [id number] 05:28:00 Test Item Value Reference Range Interpretation Comments Sodium Lvl (test code = Sodium Lvl) 140 135-145 [facility] [employer] [id number] 05:28:00 Test Item Value Reference Range Interpretation Comments Potassium Lvl (test code = Potassium 3.5 3.5-5.1 Lvl) [facility] Center[facility] [id number] 05:28:00 Test Item Value Reference Range Interpretation Comments Chloride Lvl (test code = Chloride Lvl) 106 95-109 [facility] [id number] 05:28:00 Test Item Value Reference Range Interpretation Comments CO2 (test code = CO2) 26 24-32 [facility] [id number] 05:28:00 Test Item Value Reference Range Interpretation Comments AGAP (test code = AGAP) 11.5 10.0-20.0 [place] 159572-06-06 05:28:00 Test Item Value Reference Range Interpretation Comments Calcium Lvl (test code = Calcium Lvl) 7.6 8.5-10.5 [place] 159572-06-06 05:28:00 Test Item Value Reference Range Interpretation Comments eGFR (test code = eGFR) 16 [place] 159572-06-06 05:28:00 Test Item Value Reference Range Interpretation Comments Magnesium Lvl (test code = Magnesium 2.3 1.8-2.4 Lvl) [place] 159572-06-06 05:28:00 Test Item Value Reference Range Interpretation Comments Phosphorus (test code = Phosphorus) 3.5 2.5-4.5 [facility] HospitalVkoeotsGNXJPWEKTH1537-42-56 05:28:00 Test Item Value Reference Range Interpretation Comments WBC (test code = WBC) 16.0 3.7-10.4 [place] 324092-06-06 05:28:00 Test Item Value Reference Range Interpretation Comments RBC (test code = RBC) 3.91 4.70-6.10 [place] 324092-06-06 05:28:00 Test Item Value Reference Range Interpretation Comments Hgb (test code = Hgb) 10.8 14.0-18.0 [place] 324092-06-06 05:28:00 Test Item Value Reference Range Interpretation Comments Hct (test code = Hct) 31.7 42.0-54.0 [place] 324092-06-06 05:28:00 Test Item Value Reference Range Interpretation Comments MCV (test code = MCV) 81.0 80.0-94.0 [place] 324092-06-06 05:28:00 Test Item Value Reference Range Interpretation Comments MCH (test code = MCH) 27.6 pg 27.0-31.0 [place] 324092-06-06 05:28:00 Test Item Value Reference Range Interpretation Comments MCHC (test code = MCHC) 34.0 32.0-36.0 [place] 324092-06-06 05:28:00 Test Item Value Reference Range Interpretation Comments RDW (test code = RDW) 14.1 11.5-14.5 [place] 324092-06-06 05:28:00 Test Item Value Reference Range Interpretation Comments Platelet (test code = Platelet) 326 133-450 [facility] HospitalAwywjwlFVREZISKHX0426-12-30 05:28:00 Test Item Value Reference Range Interpretation Comments MPV (test code = MPV) 7.9 7.4-10.4 [place] 324092-06-06 05:28:00 Test Item Value Reference Range Interpretation Comments PT (test code = PT) 12.8 s 12.0-14.7 [place] 324092-06-06 05:28:00 Test Item Value Reference Range Interpretation Comments INR (test code = INR) 0.97 1 0.85-1.17 [place] 324092-06-06 05:28:00 Test Item Value Reference Range Interpretation Comments PTT (test code = PTT) 54.7 s 22.9-35.8 [place] 324092-06-06 05:28:00 Test Item Value Reference Range Interpretation Comments Segs (test code = Segs) 70.6 45.0-75.0 [facility] HospitalVvkgsseITYESWVGIG6700-17-56 05:28:00 Test Item Value Reference Range Interpretation Comments Lymphocytes (test code = Lymphocytes) 16.3 20.0-40.0 [place] 324092-06-06 05:28:00 Test Item Value Reference Range Interpretation Comments Monocytes (test code = Monocytes) 11.0 2.0-12.0 [place] 324092-06-06 05:28:00 Test Item Value Reference Range Interpretation Comments Eosinophils (test code = Eosinophils) 1.6 <=4.0 [place] 324092-06-06 05:28:00 Test Item Value Reference Range Interpretation Comments Basophils (test code = Basophils) 0.5 <=1.0 [place] 324092-06-06 05:28:00 Test Item Value Reference Range Interpretation Comments Neutrophils # (test code = Neutrophils 11.3 1.5-8.1 #) [facility]YnrcqrbNFMAIZAGGE3810-25-53 05:28:00 Test Item Value Reference Range Interpretation Comments Lymphocytes # (test code = Lymphocytes 2.6 1.0-5.5 #) [place] 324092-06-06 05:28:00 Test Item Value Reference Range Interpretation Comments Monocytes # (test code = Monocytes #) 1.8 <=0.8 [facility] HospitalNprmtkdXYYGPKCEKN0127-93-62 05:28:00 Test Item Value Reference Range Interpretation Comments Eosinophils # (test code = Eosinophils 0.3 <=0.5 #) [facility] HospitalVbbsrreHCNXFPBJXV8639-32-50 05:28:00 Test Item Value Reference Range Interpretation Comments Basophils # (test code = Basophils #) 0.1 <=0.2 [facility]2022-06-06 05:28:00 Test Item Value Reference Range Interpretation Comments Ca Ion WB (test code = Ca Ion WB) 1.06 1.05-1.25 [facility]2022-06-06 05:28:00 Test Item Value Reference Range Interpretation Comments Ca Ion at pH 7.4 WB (test code = Ca Ion 1.08 1.05-1.25 at pH 7.4 WB) [facility]DqzvromGEBESANSFP6607-17-02 22:00:00 Test Item Value Reference Range Interpretation Comments Plav Effect Plt (test code = Plav 31 Effect Plt) [facility] [id number] 21:46:00 Test Item Value Reference Range Interpretation Comments ABO/Rh (test code = ABO/Rh) O NEG [facility] [employer] [facility] [id number] 21:46:00 Test Item Value Reference Range Interpretation Comments Antibody Scrn (test Negative (01/02/22 4:46 code = Antibody Scrn) PM) [facility] CenterCuraxis Pharmaceutical [id number] 21:46:00 Test Item Value Reference Range Interpretation Comments HS Troponin I (test code = HS Troponin 26 I) [facility] CenterOverhead.fm [id number] 21:46:00 Test Item Value Reference Range Interpretation Comments HS Troponin I (test code = HS Troponin 24 I) [facility] CenterRentlord [id number] 21:46:00 Test Item Value Reference Range Interpretation Comments Glucose Lvl (test code = Glucose Lvl) 140 70-99 [facility] CenterGirl[facility] [id number] 21:46:00 Test Item Value Reference Range Interpretation Comments BUN (test code = BUN) 57 7-22 [facility] CenterRent[facility] [id number] 21:46:00 Test Item Value Reference Range Interpretation Comments Creatinine Lvl (test code = Creatinine 4.23 0.50-1.40 Lvl) [facility]2022-06-05 21:46:00 Test Item Value Reference Range Interpretation Comments Sodium Lvl (test code = Sodium Lvl) 139 135-145 [facility]2022-06-05 21:46:00 Test Item Value Reference Range Interpretation Comments Potassium Lvl (test code = Potassium 3.5 3.5-5.1 Lvl) [place] 159572-06-05 21:46:00 Test Item Value Reference Range Interpretation Comments Chloride Lvl (test code = Chloride Lvl) 104 95-109 [facility]2022-06-05 21:46:00 Test Item Value Reference Range Interpretation Comments CO2 (test code = CO2) 26 24-32 [place] 159572-06-05 21:46:00 Test Item Value Reference Range Interpretation Comments AGAP (test code = AGAP) 12.5 10.0-20.0 [facility]2022-06-05 21:46:00 Test Item Value Reference Range Interpretation Comments Calcium Lvl (test code = Calcium Lvl) 8.3 8.5-10.5 [facility]2022-06-05 21:46:00 Test Item Value Reference Range Interpretation Comments eGFR (test code = eGFR) 15 [facility]2022-06-05 21:46:00 Test Item Value Reference Range Interpretation Comments Lactic Acid Lvl (test code = Lactic 1.2 0.5-2.2 Acid Lvl) [place] 159572-06-05 21:46:00 Test Item Value Reference Range Interpretation Comments Magnesium Lvl (test code = Magnesium 2.5 1.8-2.4 Lvl) [facility] HospitalGrokmbbDIEWMXAEOH2169-31-06 21:46:00 Test Item Value Reference Range Interpretation Comments WBC (test code = WBC) 13.8 3.7-10.4 [place] 324092-06-05 21:46:00 Test Item Value Reference Range Interpretation Comments RBC (test code = RBC) 4.18 4.70-6.10 [place] 324092-06-05 21:46:00 Test Item Value Reference Range Interpretation Comments Hgb (test code = Hgb) 11.7 14.0-18.0 [place] 324092-06-05 21:46:00 Test Item Value Reference Range Interpretation Comments Hct (test code = Hct) 34.4 42.0-54.0 [place] 324092-06-05 21:46:00 Test Item Value Reference Range Interpretation Comments MCV (test code = MCV) 82.4 80.0-94.0 [place] [address]-06-05 21:46:00 Test Item Value Reference Range Interpretation Comments MCH (test code = MCH) 27.9 pg 27.0-31.0 [place] [address]-06-05 21:46:00 Test Item Value Reference Range Interpretation Comments MCHC (test code = MCHC) 33.8 32.0-36.0 [place] 324092-06-05 21:46:00 Test Item Value Reference Range Interpretation Comments RDW (test code = RDW) 14.2 11.5-14.5 [place] 324092-06-05 21:46:00 Test Item Value Reference Range Interpretation Comments Platelet (test code = Platelet) 347 133-450 [facility] HospitalRkqdpckYOCXMTRLPK6198-83-00 21:46:00 Test Item Value Reference Range Interpretation Comments MPV (test code = MPV) 8.0 7.4-10.4 [place] [address]-06-05 21:46:00 Test Item Value Reference Range Interpretation Comments ACT (TEG) Rapid (test code = ACT (TEG) 97 s 86-118 Rapid) [facility] HospitalYgprhrqMMTZWRLPTM7118-89-44 21:46:00 Test Item Value Reference Range Interpretation Comments Split Point Rapid (test code = Split 0.4 min Point Rapid) [facility] HospitalQyyzfpwUHSQYNLDIL0314-06-39 21:46:00 Test Item Value Reference Range Interpretation Comments R-time Rapid (test code = R-time 0.5 min 0.4-0.7 Rapid) [place] [address]-06-05 21:46:00 Test Item Value Reference Range Interpretation Comments K-time Rapid (test code = K-time 0.8 min 0.6-2.3 Rapid) [facility] HospitalQxcevphMGRSKVZTYW9547-37-64 21:46:00 Test Item Value Reference Range Interpretation Comments Angle Rapid (test code = Angle 82 degrees 64-80 Rapid) [place] 324092-06-05 21:46:00 Test Item Value Reference Range Interpretation Comments Max Amplitude Rapid (test code = Max 78 mm 52-71 Amplitude Rapid) [place] [address]-06-05 21:46:00 Test Item Value Reference Range Interpretation Comments G-value Rapid (test code = G-value 17.4 5.0-11.6 Rapid) [place] [address]-06-05 21:46:00 Test Item Value Reference Range Interpretation Comments Estimated % Lysis Rapid (test code = 0.2 <=7.5 Estimated % Lysis Rapid) [address]06-05 21:46:00 Test Item Value Reference Range Interpretation Comments PT (test code = PT) 12.5 s 12.0-14.[address]06-05 21:46:00 Test Item Value Reference Range Interpretation Comments INR (test code = INR) 0.94 1 0.85-1.[address]06-05 21:46:00 Test Item Value Reference Range Interpretation Comments PTT (test code = PTT) 31.8 s 22.9-35.8 [place] [address]-06-05 21:46:00 Test Item Value Reference Range Interpretation Comments Fibrinogen Lvl (test code = Fibrinogen 608 230-510 Lvl) [place] 324092-06-05 21:46:00 Test Item Value Reference Range Interpretation Comments ASA Effect Plt (test code = ASA Effect 375 Plt) [place] [address]-06-05 21:46:00 Test Item Value Reference Range Interpretation Comments Segs (test code = Segs) 81.6 45.0-75.0 [place] 324092-06-05 21:46:00 Test Item Value Reference Range Interpretation Comments Lymphocytes (test code = Lymphocytes) 8.5 20.0-40.0 [place] [address]-06-05 21:46:00 Test Item Value Reference Range Interpretation Comments Monocytes (test code = Monocytes) 8.6 2.0-12.0 [place] [address]-06-05 21:46:00 Test Item Value Reference Range Interpretation Comments Eosinophils (test code = Eosinophils) 0.7 <=4.0 [place] [address]-06-05 21:46:00 Test Item Value Reference Range Interpretation Comments Basophils (test code = Basophils) 0.6 <=1.0 [address]06-05 21:46:00 Test Item Value Reference Range Interpretation Comments Neutrophils # (test code = Neutrophils 11.3 1.5-8.1 #) [place] [address]-06-05 21:46:00 Test Item Value Reference Range Interpretation Comments Lymphocytes # (test code = Lymphocytes 1.2 1.0-5.5 #) [address]06-05 21:46:00 Test Item Value Reference Range Interpretation Comments Monocytes # (test code = Monocytes #) 1.2 <=0.8 [address]06-05 21:46:00 Test Item Value Reference Range Interpretation Comments Eosinophils # (test code = Eosinophils 0.1 <=0.5 #) [address]06-05 21:46:00 Test Item Value Reference Range Interpretation Comments Basophils # (test code = Basophils #) 0.1 <=0.2 [place] 959332-06-05 21:46:00 Test Item Value Reference Range Interpretation Comments Ca Ion WB (test code = Ca Ion WB) 0.97 1.05-1.25 [place] 959332-06-05 21:46:00 Test Item Value Reference Range Interpretation Comments Ca Ion at pH 7.4 WB (test code = Ca Ion 1.02 1.05-1.25 at pH 7.4 WB) [place] 159572-06-05 17:26:00 Test Item Value Reference Range Interpretation Comments Glucose Lvl (test code = Glucose Lvl) 261 70-99 [place] 159572-06-05 17:26:00 Test Item Value Reference Range Interpretation Comments BUN (test code = BUN) 55 7-22 [place] 159572-06-05 17:26:00 Test Item Value Reference Range Interpretation Comments Creatinine Lvl (test code = Creatinine 4.31 0.50-1.40 Lvl) [place] 159572-06-05 17:26:00 Test Item Value Reference Range Interpretation Comments Sodium Lvl (test code = Sodium Lvl) 139 135-145 [place] 159572-06-05 17:26:00 Test Item Value Reference Range Interpretation Comments Potassium Lvl (test code = Potassium 4.0 3.5-5.1 Lvl) [place] 159572-06-05 17:26:00 Test Item Value Reference Range Interpretation Comments Chloride Lvl (test code = Chloride Lvl) 104 95-109 [place] 159572-06-05 17:26:00 Test Item Value Reference Range Interpretation Comments CO2 (test code = CO2) 27 24-32 [place] 159572-06-05 17:26:00 Test Item Value Reference Range Interpretation Comments Calcium Lvl (test code = Calcium Lvl) 8.3 8.5-10.5 [place] 159572-06-05 17:26:00 Test Item Value Reference Range Interpretation Comments AGAP (test code = AGAP) 12.0 10.0-20.0 [facility]2022-06-05 17:26:00 Test Item Value Reference Range Interpretation Comments eGFR (test code = eGFR) 14 [place] 324092-06-05 06:45:00 Test Item Value Reference Range Interpretation Comments WBC (test code = WBC) 14.2 3.7-10.4 [place] 324092-06-05 06:45:00 Test Item Value Reference Range Interpretation Comments RBC (test code = RBC) 4.63 4.70-6.10 [place] 324092-06-05 06:45:00 Test Item Value Reference Range Interpretation Comments Hgb (test code = Hgb) 12.8 14.0-18.0 [place] 324092-06-05 06:45:00 Test Item Value Reference Range Interpretation Comments Hct (test code = Hct) 38.2 42.0-54.0 [place] [address]-06-05 06:45:00 Test Item Value Reference Range Interpretation Comments MCV (test code = MCV) 82.4 80.0-94.0 [place] 324092-06-05 06:45:00 Test Item Value Reference Range Interpretation Comments MCH (test code = MCH) 27.6 pg 27.0-31.0 [place] 324092-06-05 06:45:00 Test Item Value Reference Range Interpretation Comments MCHC (test code = MCHC) 33.5 32.0-36.0 [place] 324092-06-05 06:45:00 Test Item Value Reference Range Interpretation Comments RDW (test code = RDW) 14.1 11.5-14.5 [place] 324092-06-05 06:45:00 Test Item Value Reference Range Interpretation Comments Platelet (test code = Platelet) 359 133-450 [place] 324092-06-05 06:45:00 Test Item Value Reference Range Interpretation Comments MPV (test code = MPV) 7.7 7.4-10.4 [facility] HospitalUmhfhukYHVEVKARDC2336-32-85 06:45:00 Test Item Value Reference Range Interpretation Comments Segs (test code = Segs) 71.7 45.0-75.0 [place] 324092-06-05 06:45:00 Test Item Value Reference Range Interpretation Comments Lymphocytes (test code = Lymphocytes) 15.9 20.0-40.0 [facility] HospitalQvtvjwlAAXAMZCZII1275-44-43 06:45:00 Test Item Value Reference Range Interpretation Comments Monocytes (test code = Monocytes) 9.7 2.0-12.0 [facility] HospitalQjrklbsXXIMOHMIWQ6671-06-76 06:45:00 Test Item Value Reference Range Interpretation Comments Eosinophils (test code = Eosinophils) 1.9 <=4.0 [place] 324092-06-05 06:45:00 Test Item Value Reference Range Interpretation Comments Basophils (test code = Basophils) 0.8 <=1.0 [facility] HospitalWvrsfmmAVKISHQNYX5923-17-84 06:45:00 Test Item Value Reference Range Interpretation Comments Neutrophils # (test code = Neutrophils 10.2 1.5-8.1 #) [facility] HospitalJhcmywmKDPHOQCKMS6935-86-52 06:45:00 Test Item Value Reference Range Interpretation Comments Lymphocytes # (test code = Lymphocytes 2.3 1.0-5.5 #) [facility] HospitalJnrqlusQHYLCYCRJR2321-95-86 06:45:00 Test Item Value Reference Range Interpretation Comments Monocytes # (test code = Monocytes #) 1.4 <=0.8 [place] 324092-06-05 06:45:00 Test Item Value Reference Range Interpretation Comments Eosinophils # (test code = Eosinophils 0.3 <=0.5 #) [place] 324092-06-05 06:45:00 Test Item Value Reference Range Interpretation Comments Basophils # (test code = Basophils #) 0.1 <=0.2 [facility] AND [id number] 21:54:00 Test Item Value Reference Range Interpretation Comments UA Protein (test code = UA >=300 mg/dL Protein) [facility] AND [id number] 21:54:00 Test Item Value Reference Range Interpretation Comments UA Glucose (test code = UA Glucose) 500 mg/dL [facility] AND [id number] 21:54:00 Test Item Value Reference Range Interpretation Comments UA Ketones (test code = UA Negative mg/dL Ketones) [facility] AND [id number] 21:54:00 Test Item Value Reference Range Interpretation Comments UA Bili (test code = Negative *NA*(01/01/22 UA Bili) 4:54 PM) [facility] AND [id number] 21:54:00 Test Item Value Reference Range Interpretation Comments UA Blood (test code = Small *ABN*(01/01/22 UA Blood) 4:54 PM) [facility] AND [id number] 21:54:00 Test Item Value Reference Range Interpretation Comments UA Urobilinogen (test code = UA no gt 0.1-1.0 Urobilinogen) [facility] AND [id number] 21:54:00 Test Item Value Reference Range Interpretation Comments UA Nitrite (test code Negative (01/01/22 4:54 = UA Nitrite) PM) [facility] AND [id number] 21:54:00 Test Item Value Reference Range Interpretation Comments UA Leuk Est (test Negative (01/01/22 4:54 code = UA Leuk Est) PM) [facility] AND [id number] 21:54:00 Test Item Value Reference Range Interpretation Comments UA Sq Epi (test code = UA Sq Occasional /LPF Epi) [facility] AND [id number] 21:54:00 Test Item Value Reference Range Interpretation Comments UA WBC (test code = UA WBC) 5 <=5 [facility] AND [id number] 21:54:00 Test Item Value Reference Range Interpretation Comments UA RBC (test code = UA RBC) 2 <=2 [facility] AND [id number] 21:54:00 Test Item Value Reference Range Interpretation Comments UA Bacteria (test code = UA Occasional /HPF Bacteria) [facility] [id number] 21:54:00 Test Item Value Reference Range Interpretation Comments UA Mucus (test code = UA Mucus) Few /LPF [facility] [id number] 21:54:00 Test Item Value Reference Range Interpretation Comments UA Renal Epi (test code = UA Renal Epi) 6 [facility] [id number] 21:54:00 Test Item Value Reference Range Interpretation Comments UA Amorph Alyssa (test code = Occasional /HPF UA Amorph Alyssa) [facility] [id number] 21:54:00 Test Item Value Reference Range Interpretation Comments UA Gran Cast (test code = UA Gran 0-2 /LPF Cast) [facility] [id number] 21:54:00 Test Item Value Reference Range Interpretation Comments UA Color (test code = Yellow *NA*(01/01/22 4:54 UA Color) PM) [facility] [id number] 21:54:00 Test Item Value Reference Range Interpretation Comments UA Turbidity (test code Slight *ABN*(01/01/22 = UA Turbidity) 4:54 PM) [facility] [id number] 21:54:00 Test Item Value Reference Range Interpretation Comments UA Spec Grav (test code = UA Spec 1.025 1 Grav) [facility] [id number] 21:54:00 Test Item Value Reference Range Interpretation Comments UA pH (test code = UA pH) 5.0 1 5.0-8.0 [facility] CenterannCARDIAC [id number] 07:01:00 Test Item Value Reference Range Interpretation Comments Total CK (test code = Total CK) 701 12-191 [facility] [id number] 08:14:00 Test Item Value Reference Range Interpretation Comments B/C Ratio (test code = B/C Ratio) 11 1 6-25 [facility]annCHE[facility] [id number] 08:14:00 Test Item Value Reference Range Interpretation Comments Total Protein (test code = Total 6.2 6.4-8.4 Protein) [facility] [id number] 08:14:00 Test Item Value Reference Range Interpretation Comments Albumin Lvl (test code = Albumin Lvl) 2.4 3.5-5.0 [place] 159572-06-03 08:14:00 Test Item Value Reference Range Interpretation Comments Globulin (test code = Globulin) 3.8 2.7-4.2 [place] 159572-06-03 08:14:00 Test Item Value Reference Range Interpretation Comments A/G Ratio (test code = A/G Ratio) 0.6 1 0.7-1.6 [place] 159572-06-03 08:14:00 Test Item Value Reference Range Interpretation Comments ALT (test code = ALT) 33 <=65 [place] 159572-06-03 08:14:00 Test Item Value Reference Range Interpretation Comments AST (test code = AST) 26 <=37 [place] 159572-06-03 08:14:00 Test Item Value Reference Range Interpretation Comments Alk Phos (test code = Alk Phos) 153 39-136 [place] 159572-06-03 08:14:00 Test Item Value Reference Range Interpretation Comments Bili Total (test code = Bili Total) 0.4 0.2-1.3 [facility] AND [id number] 22:38:00 Test Item Value Reference Range Interpretation Comments UA Color (test code = Light Yellow UA Color) *NA*(12/30/21 5:38 PM) [facility] AND [id number] 22:38:00 Test Item Value Reference Range Interpretation Comments UA Turbidity (test code = Clear (12/30/21 5:38 UA Turbidity) PM) [facility] AND [id number] 22:38:00 Test Item Value Reference Range Interpretation Comments UA Spec Grav (test code = UA Spec 1.031 1 Grav) [facility] AND [id number] 22:38:00 Test Item Value Reference Range Interpretation Comments UA pH (test code = UA pH) 6.0 1 5.0-8.0 [facility] AND [id number] 22:38:00 Test Item Value Reference Range Interpretation Comments UA Protein (test code = UA >=300 mg/dL Protein) [facility] AND [id number] 22:38:00 Test Item Value Reference Range Interpretation Comments UA Glucose (test code = UA Glucose) 500 mg/dL [facility] [id number] 22:38:00 Test Item Value Reference Range Interpretation Comments UA Ketones (test code = UA Trace mg/dL Ketones) [facility] [id number] 22:38:00 Test Item Value Reference Range Interpretation Comments UA Bili (test code = Negative *NA*(12/30/21 UA Bili) 5:38 PM) [facility] [id number] 22:38:00 Test Item Value Reference Range Interpretation Comments UA Blood (test code = Small *ABN*(12/30/21 UA Blood) 5:38 PM) [facility] [id number] 22:38:00 Test Item Value Reference Range Interpretation Comments UA Urobilinogen (test code = UA no gt 0.1-1.0 Urobilinogen) [facility] [id number] 22:38:00 Test Item Value Reference Range Interpretation Comments UA Nitrite (test code Negative (12/30/21 5:38 = UA Nitrite) PM) [facility] [id number] 22:38:00 Test Item Value Reference Range Interpretation Comments UA Leuk Est (test Negative (12/30/21 5:38 code = UA Leuk Est) PM) [facility] [id number] 22:38:00 Test Item Value Reference Range Interpretation Comments UA WBC (test code = UA WBC) 1 <=5 [facility] [id number] 22:38:00 Test Item Value Reference Range Interpretation Comments UA RBC (test code = UA RBC) 1 <=2 [facility] [id number] 22:38:00 Test Item Value Reference Range Interpretation Comments UA [place] Yeast (test code = UA Occasional /HPF [place] Yeast) [facility] [id number] 22:38:00 Test Item Value Reference Range Interpretation Comments UA Sq Epi (test code = UA Sq Epi) None Seen [facility] UvwakdeLNGNXPVKFQ1731-65-15 22:05:00 Test Item Value Reference Range Interpretation Comments Treponemal Ab (test code Non-Reactive = Treponemal Ab) *NA*(12/30/21 5:05 PM) [facility] CenterJfcruvuNKETSI5997-28-29 22:05:00 Test Item Value Reference Range Interpretation Comments Trig (test code = Trig) 187 [facility] [id number] 22:05:00 Test Item Value Reference Range Interpretation Comments Chol (test code = Chol) 178 [facility] CenterMavvhdpIWLMWK3182-77-63 22:05:00 Test Item Value Reference Range Interpretation Comments HDL (test code = HDL) 40 [facility] CenterMafahgwGBFPVX8376-42-72 22:05:00 Test Item Value Reference Range Interpretation Comments CHD Risk (test code = CHD Risk) 4.45 1 4.00-7.30 [facility] [id number] 22:05:00 Test Item Value Reference Range Interpretation Comments LDL (Calculated) (test code = LDL 101 (Calculated)) [facility] CenterAflgrcoJYXVGB0815-66-73 22:05:00 Test Item Value Reference Range Interpretation Comments VLDL (test code = VLDL) 37 1 [facility] CenterannSPECIAL [id number] 22:05:00 Test Item Value Reference Range Interpretation Comments Hgb A1C (test code = Hgb A1C) 9.4 [facility] CenterVyuhxbbDMSZZEFVHK4375-17-13 15:46:00 Test Item Value Reference Range Interpretation Comments Coronavirus (COVID-19) Not Detected (12/30/21 JING (test code = 10:46 AM) Coronavirus (COVID-19) JING) [facility] CenterFhzrycoCVYPSQAZFB6642-93-22 15:25:00 Test Item Value Reference Range Interpretation Comments [facility] HIV 4th GEN (test Negative *NA*(12/30/21 code = CDC HIV 4th 10:25 AM) GEN) [facility] CenterannCARDIAC [id number] 14:44:51 Test Item Value Reference Range Interpretation Comments Total CK (test code = Total CK) 710 12-191 [facility] CenterOnglhrzZMOVRTDPPS0378-22-22 14:44:51 Test Item Value Reference Range Interpretation Comments PT (test code = PT) 11.7 s 12.0-14.7 [facility] CenterTyhoxhxEVVMJHTMKZ6626-90-93 14:44:51 Test Item Value Reference Range Interpretation Comments INR (test code = INR) 0.87 1 0.85-1.17 [facility] CenterNrfjjsyYOJVBJQABQ4768-48-58 14:44:51 Test Item Value Reference Range Interpretation Comments PTT (test code = PTT) 33.1 s 22.9-35.8 [facility]2015-12-09 10:57:00 Test Item Value Reference Range Interpretation Comments Magnesium Lvl (test code = Magnesium 2.0 1.8-2.4 Lvl) [facility]2015-12-09 10:57:00 Test Item Value Reference Range Interpretation Comments Calcium Lvl (test code = Calcium Lvl) 8.2 8.5-10.5 [facility]2015-12-09 10:57:00 Test Item Value Reference Range Interpretation Comments Chloride Lvl (test code = Chloride Lvl) 103 95-109 [facility]2015-12-09 10:57:00 Test Item Value Reference Range Interpretation Comments CO2 (test code = CO2) 29 24-32 [facility]2015-12-09 10:57:00 Test Item Value Reference Range Interpretation Comments AGAP (test code = AGAP) 10.9 10.0-20.0 [facility] [facility] 10:57:00 Test Item Value Reference Range Interpretation Comments Sodium Lvl (test code = Sodium Lvl) 138 135-145 [facility]2015-12-09 10:57:00 Test Item Value Reference Range Interpretation Comments Glucose Lvl (test code = Glucose Lvl) 168 70-99 [facility]2015-12-09 10:57:00 Test Item Value Reference Range Interpretation Comments BUN (test code = BUN) 24 7-22 [facility]2015-12-09 10:57:00 Test Item Value Reference Range Interpretation Comments Potassium Lvl (test code = Potassium 4.9 3.5-5.1 Lvl) [facility]2015-12-09 10:57:00 Test Item Value Reference Range Interpretation Comments eGFR (test code = eGFR) 73 [facility]2015-12-09 10:57:00 Test Item Value Reference Range Interpretation Comments Creatinine Lvl (test code = Creatinine 1.18 0.50-1.40 Lvl) [facility]ZrakdilGMSNASVBWL8374-65-35 10:57:00 Test Item Value Reference Range Interpretation Comments MPV (test code = MPV) 8.0 7.4-10.4 [facility] HospitalXjdfbkuSHYIMFBGQF8664-07-78 10:57:00 Test Item Value Reference Range Interpretation Comments MCHC (test code = MCHC) 32.5 32.0-36.0 [facility] HospitalYzdiujjAZXDXTGWHM9216-04-40 10:57:00 Test Item Value Reference Range Interpretation Comments MCH (test code = MCH) 27.4 pg 27.0-31.0 [facility]QjwsxfnUSUGPUAXBE6263-34-42 10:57:00 Test Item Value Reference Range Interpretation Comments Platelet (test code = Platelet) 316 133-450 [facility] HospitalFgyjqbwVXUAFXLICG4620-26-09 10:57:00 Test Item Value Reference Range Interpretation Comments RDW (test code = RDW) 13.8 11.5-14.5 [facility] HospitalMjrcqofWSKNMMAVCZ3889-20-79 10:57:00 Test Item Value Reference Range Interpretation Comments MCV (test code = MCV) 84.1 80.0-94.0 [facility] HospitalIuqscwsXAMIYJBFUY1955-69-38 10:57:00 Test Item Value Reference Range Interpretation Comments Hgb (test code = Hgb) 12.7 14.0-18.0 [facility] HospitalTnqvyzvPUUZDDTWEZ4995-40-28 10:57:00 Test Item Value Reference Range Interpretation Comments RBC (test code = RBC) 4.63 4.70-6.10 [facility] HospitalHtuuxloFYIZXKJKLL3400-05-99 10:57:00 Test Item Value Reference Range Interpretation Comments Hct (test code = Hct) 38.9 42.0-54.0 [facility] HospitalPzscgtdWQBLXIQWAW5030-12-22 10:57:00 Test Item Value Reference Range Interpretation Comments WBC (test code = WBC) 9.4 3.7-10.4 [facility] HospitalWzelpnqJSEDBPZDZX6017-54-29 10:57:00 Test Item Value Reference Range Interpretation Comments Basophils # (test code = Basophils #) 0.1 <=0.2 [facility] HospitalIfrguobYFOPAHQIJC3980-39-82 10:57:00 Test Item Value Reference Range Interpretation Comments Monocytes # (test code = Monocytes #) 0.9 <=0.8 [facility] HospitalJcmxowfVYHFCDXKAE5486-47-72 10:57:00 Test Item Value Reference Range Interpretation Comments Lymphocytes # (test code = Lymphocytes 3.8 1.0-5.5 #) [facility] HospitalUbkrdyaRSOFEKMTKA8692-97-78 10:57:00 Test Item Value Reference Range Interpretation Comments Eosinophils # (test code = Eosinophils 0.6 <=0.5 #) [facility] HospitalLzaclrqZZGOCZNKQA2067-98-09 10:57:00 Test Item Value Reference Range Interpretation Comments Eosinophils (test code = Eosinophils) 6.6 <=4.0 [facility] HospitalFwpnevoAZFRZPGWVS9141-97-77 10:57:00 Test Item Value Reference Range Interpretation Comments Basophils (test code = Basophils) 1.3 <=1.0 [facility] HospitalVootssnNSRXIKXUHA2851-66-35 10:57:00 Test Item Value Reference Range Interpretation Comments Segs-Bands # (test code = Segs-Bands #) 4.0 1.5-8.1 [facility] HospitalRlzsnkbAZCDUQMQHH9133-20-91 10:57:00 Test Item Value Reference Range Interpretation Comments Segs (test code = Segs) 42.4 45.0-75.0 [facility] HospitalQkvysfsYHEDAWMKAO9221-00-40 10:57:00 Test Item Value Reference Range Interpretation Comments Lymphocytes (test code = Lymphocytes) 39.9 20.0-40.0 [facility] HospitalVxjfuixCVTWIWQWBJ6797-17-74 10:57:00 Test Item Value Reference Range Interpretation Comments Monocytes (test code = Monocytes) 9.8 2.0-12.0 [facility]MkylzguULMMSD6623-54-01 10:57:00 Test Item Value Reference Range Interpretation Comments CHD Risk (test code = CHD Risk) 5.50 4.00-7.30 [facility] HospitalQejqshdSFRJJD6451-79-26 10:57:00 Test Item Value Reference Range Interpretation Comments VLDL (test code = VLDL) 35 [facility] HospitalVemxnnlLVDNQF1569-25-10 10:57:00 Test Item Value Reference Range Interpretation Comments LDL (Calculated) (test code = LDL 109 (Calculated)) [facility] HospitalTysimrxRUCAFE7349-67-90 10:57:00 Test Item Value Reference Range Interpretation Comments HDL (test code = HDL) 32 [facility] HospitalMswglqrNCWVZM6624-51-97 10:57:00 Test Item Value Reference Range Interpretation Comments Chol (test code = Chol) 176 [facility] HospitalPqtpkpwPPKDVH6437-95-24 10:57:00 Test Item Value Reference Range Interpretation Comments Trig (test code = Trig) 176 [facility] HospitalFoshxjgGNNHLB1517-35-09 19:49:00 Test Item Value Reference Range Interpretation Comments LDL (Calculated) (test code = LDL 115 (Calculated)) [facility] HospitalNhxpcajNLVYXR0081-41-63 19:49:00 Test Item Value Reference Range Interpretation Comments VLDL (test code = VLDL) 31 [facility] GdhvinkXCNYMX6442-58-31 19:49:00 Test Item Value Reference Range Interpretation Comments HDL (test code = HDL) 37 [facility] FtliuedHUPJTG8529-55-65 19:49:00 Test Item Value Reference Range Interpretation Comments CHD Risk (test code = CHD Risk) 4.95 4.00-7.30 [facility] NgsnhtuXUQXCX5168-95-10 19:49:00 Test Item Value Reference Range Interpretation Comments Chol (test code = Chol) 183 [facility] XnxkhbdSYHYUQ1021-75-07 19:49:00 Test Item Value Reference Range Interpretation Comments Trig (test code = Trig) 156 [facility] [employer]annCARDIAC UMATWHJ8651-53-34 13:56:00 Test Item Value Reference Range Interpretation Comments CK MB Index (test code = CK MB Index) 1.3 <=2.5 [facility] [employer]annCARMemfoACTAC RDIRDHP4638-28-01 13:56:00 Test Item Value Reference Range Interpretation Comments Troponin-I (test code = Troponin-I) no gt <=0.40 [facility] iPosiCARMemfoACTAC ETQFCSD1056-93-86 13:56:00 Test Item Value Reference Range Interpretation Comments CK MB (test code = CK MB) 5.2 0.5-3.6 [facility] [employer]annCARMemfoACTAC YLZZMSX4567-37-57 13:56:00 Test Item Value Reference Range Interpretation Comments Total CK (test code = Total CK) 413 12-191 [facility] GwfpguiRUNNFHICIENR6617-37-80 13:56:00 Test Item Value Reference Range Interpretation Comments AGAP (test code = AGAP) 10.4 10.0-20.0 [facility] HmmgfeiIVCBBEXIAAAW9463-88-26 13:56:00 Test Item Value Reference Range Interpretation Comments AST (test code = AST) 34 <=37 [facility] UhtpyupDIEYQFYODJRI3524-10-88 13:56:00 Test Item Value Reference Range Interpretation Comments Total Protein (test code = Total 7.0 6.4-8.4 Protein) [facility]UstydrfEYPKXUINLLUR4767-45-10 13:56:00 Test Item Value Reference Range Interpretation Comments Bili Total (test code = Bili Total) 0.3 0.2-1.3 [facility] ZbfcsrdKQIOJWRBSXKF1733-23-69 13:56:00 Test Item Value Reference Range Interpretation Comments CO2 (test code = CO2) 26 24-32 [facility]IuzrxhtTTWVVDCTPFOA9832-57-91 13:56:00 Test Item Value Reference Range Interpretation Comments Calcium Lvl (test code = Calcium Lvl) 8.2 8.5-10.5 [facility] HospitalTylrvwdGLRSCQYWAHFS6116-42-57 13:56:00 Test Item Value Reference Range Interpretation Comments Potassium Lvl (test code = Potassium 4.4 3.5-5.1 Lvl) [facility] HospitalSmbmijjSQFYVWOHLYFD5326-74-66 13:56:00 Test Item Value Reference Range Interpretation Comments Chloride Lvl (test code = Chloride Lvl) 107 95-109 [facility] HospitalYocwhecNASUQVBYNJRG1136-53-58 13:56:00 Test Item Value Reference Range Interpretation Comments eGFR (test code = eGFR) 80 [facility] HospitalMoobdxpMITKLTVWUPOA0083-62-82 13:56:00 Test Item Value Reference Range Interpretation Comments B/C Ratio (test code = B/C Ratio) 16 6-25 [facility] HospitalAfxdyjaHSSNBAIJRFRY2713-97-39 13:56:00 Test Item Value Reference Range Interpretation Comments Globulin (test code = Globulin) 3.7 2.0-4.0 [facility] HospitalAyrvuasMHSRZZUJTOCD6724-23-66 13:56:00 Test Item Value Reference Range Interpretation Comments A/G Ratio (test code = A/G Ratio) 0.9 0.7-1.6 [facility] HospitalYmiiztzXOAVJFMIAUQP3627-73-56 13:56:00 Test Item Value Reference Range Interpretation Comments Albumin Lvl (test code = Albumin Lvl) 3.3 3.5-5.0 [facility] HospitalIiwawbxLNOOADSZIXQC0280-36-35 13:56:00 Test Item Value Reference Range Interpretation Comments Alk Phos (test code = Alk Phos) 134 39-136 [facility] HospitalIzuwpwfUITMFXPKXUIC3258-82-65 13:56:00 Test Item Value Reference Range Interpretation Comments ALT (test code = ALT) 49 <=65 [facility] HospitalQmfzonaNUVZRYCCAVPB6263-63-73 13:56:00 Test Item Value Reference Range Interpretation Comments Glucose Lvl (test code = Glucose Lvl) 103 70-99 [facility] HospitalNoeacpdVBIPDFDJTFAM0621-88-79 13:56:00 Test Item Value Reference Range Interpretation Comments BUN (test code = BUN) 17 7-22 [facility] HospitalNgzvsuhPVLSGGJXWYOY5165-54-74 13:56:00 Test Item Value Reference Range Interpretation Comments Sodium Lvl (test code = Sodium Lvl) 139 135-145 [facility] HospitalZmpipreVXTPCHRVDZOG2358-43-02 13:56:00 Test Item Value Reference Range Interpretation Comments Creatinine Lvl (test code = Creatinine 1.09 0.50-1.40 Lvl) [facility] HospitalQukaecwZNJHDWJFTS1842-55-20 13:56:00 Test Item Value Reference Range Interpretation Comments Segs-Bands # (test code = Segs-Bands #) 9.0 1.5-8.1 [facility] HospitalSjednimMVMMKZAUAI9943-25-18 13:56:00 Test Item Value Reference Range Interpretation Comments Lymphocytes # (test code = Lymphocytes 1.7 1.0-5.5 #) [facility] HospitalKbrasbcSSYXLICPSW9089-90-85 13:56:00 Test Item Value Reference Range Interpretation Comments Basophils (test code = Basophils) 0.6 <=1.0 [facility] HospitalHswrkxbYFARQJLUOL1374-83-63 13:56:00 Test Item Value Reference Range Interpretation Comments Eosinophils (test code = Eosinophils) 0.8 <=4.0 [facility] HospitalJqxzatjJDWSUXFMBP6036-10-81 13:56:00 Test Item Value Reference Range Interpretation Comments Basophils # (test code = Basophils #) 0.1 <=0.2 [facility] HospitalBtrfwvrSGDTDFNPWL9250-40-53 13:56:00 Test Item Value Reference Range Interpretation Comments Monocytes # (test code = Monocytes #) 0.7 <=0.8 [facility] HospitalEwhxiifFWHZLTMDYY2003-89-70 13:56:00 Test Item Value Reference Range Interpretation Comments Eosinophils # (test code = Eosinophils 0.1 <=0.5 #) [facility] HospitalHbzqbvdMFKITGETRG4316-27-87 13:56:00 Test Item Value Reference Range Interpretation Comments Segs (test code = Segs) 77.7 45.0-75.0 [facility] HospitalWytsqfzVBUTLSLPMX0480-44-04 13:56:00 Test Item Value Reference Range Interpretation Comments Lymphocytes (test code = Lymphocytes) 14.6 20.0-40.0 [facility] HospitalBwotivlQSVPIVRZSX2163-09-96 13:56:00 Test Item Value Reference Range Interpretation Comments Monocytes (test code = Monocytes) 6.3 2.0-12.0 [facility] HospitalTqrxonhFEUIOFKWDM6556-56-97 13:56:00 Test Item Value Reference Range Interpretation Comments INR (test code = INR) 0.90 0.85-1.17 [facility] HospitalJdfffezRLDHBXILHV8809-22-90 13:56:00 Test Item Value Reference Range Interpretation Comments PT (test code = PT) 12.5 s 12.0-14.7 [facility] HospitalMayfakoYXNMDJUNAC7686-81-19 13:56:00 Test Item Value Reference Range Interpretation Comments MPV (test code = MPV) 7.5 7.4-10.4 [facility] HospitalMxpxgmrYSTGKAKMEI1735-01-73 13:56:00 Test Item Value Reference Range Interpretation Comments RBC (test code = RBC) 5.18 4.70-6.10 [facility] HospitalAusrtnbJAKXCUSHOO6179-85-76 13:56:00 Test Item Value Reference Range Interpretation Comments Hgb (test code = Hgb) 13.9 14.0-18.0 [facility] HospitalAnumidiAQJPVVAJBN6969-06-09 13:56:00 Test Item Value Reference Range Interpretation Comments WBC (test code = WBC) 11.6 3.7-10.4 [facility] HospitalMwzmyieJIYUCIVJRO8192-93-01 13:56:00 Test Item Value Reference Range Interpretation Comments Hct (test code = Hct) 43.6 42.0-54.0 [facility] HospitalLgyulvgZBFYXTOCWQ2280-84-99 13:56:00 Test Item Value Reference Range Interpretation Comments MCV (test code = MCV) 84.1 80.0-94.0 [facility] HospitalHviuxivJLLHJAMBXF6562-36-01 13:56:00 Test Item Value Reference Range Interpretation Comments Platelet (test code = Platelet) 348 133-450 [facility] HospitalPzokpfpOWBUIJUJPU0179-66-05 13:56:00 Test Item Value Reference Range Interpretation Comments MCHC (test code = MCHC) 32.0 32.0-36.0 [facility] HospitalLejxaqhIMACMQYBDN2357-20-84 13:56:00 Test Item Value Reference Range Interpretation Comments RDW (test code = RDW) 13.9 11.5-14.5 [facility] HospitalKombzfnVAUJTRTUMF2407-40-13 13:56:00 Test Item Value Reference Range Interpretation Comments MCH (test code = MCH) 26.9 pg 27.0-31.0 [facility] HospitalZwnziohYTAAMPHRSW8604-47-68 13:56:00 Test Item Value Reference Range Interpretation Comments PTT (test code = PTT) 34.9 s 22.9-35.8 [facility]OmzhsswIYLDQCIMYFQU6006-62-40 10:00:00 Test Item Value Reference Range Interpretation Comments AGAP (test code = AGAP) 13.2 10.0-20.0 [facility] HospitalQvzkcrmSEWLJMFVVPHG2273-44-50 10:00:00 Test Item Value Reference Range Interpretation Comments BUN (test code = BUN) 16 7-22 [facility] HospitalPcdwuanNZDJZMXGVYCP9028-59-50 10:00:00 Test Item Value Reference Range Interpretation Comments Glucose Lvl (test code = Glucose Lvl) 116 70-99 [facility] HospitalYsckrfrNZAMNWUIAAUI2373-73-13 10:00:00 Test Item Value Reference Range Interpretation Comments CO2 (test code = CO2) 28 24-32 [facility] HospitalFuxmwywTDNJFOHPPPFO1511-11-55 10:00:00 Test Item Value Reference Range Interpretation Comments eGFR (test code = eGFR) 89 [facility] HospitalEluyrohSTGAGKGMDMDX5861-74-95 10:00:00 Test Item Value Reference Range Interpretation Comments Creatinine Lvl (test code = Creatinine 1.0 0.5-1.4 Lvl) [facility] HospitalVqkoqoiCPWIHIWQLRIC3544-27-35 10:00:00 Test Item Value Reference Range Interpretation Comments Sodium Lvl (test code = Sodium Lvl) 139 135-145 [facility] HospitalQqozfvvNYUJRVYVTPND8064-96-29 10:00:00 Test Item Value Reference Range Interpretation Comments Calcium Lvl (test code = Calcium Lvl) 8.5 8.5-10.5 [facility] HospitalAucysaaRNWHJUDNQSYG6144-55-86 10:00:00 Test Item Value Reference Range Interpretation Comments Potassium Lvl (test code = Potassium 4.2 3.5-5.1 Lvl) [facility] HospitalQmribwhIVEWYEBUMAYV2251-10-87 10:00:00 Test Item Value Reference Range Interpretation Comments Chloride Lvl (test code = Chloride Lvl) 102 95-109 [facility] HospitalVkpkwrhSENZLHVJRN7325-37-65 10:00:00 Test Item Value Reference Range Interpretation Comments MPV (test code = MPV) 6.7 7.4-10.4 [facility] HospitalSjersddWBCYWTJPAR6388-57-91 10:00:00 Test Item Value Reference Range Interpretation Comments Platelet (test code = Platelet) 354 133-450 [facility] HospitalJadxeadLCTZPNPXRJ3308-14-03 10:00:00 Test Item Value Reference Range Interpretation Comments RDW (test code = RDW) 17.6 11.5-14.5 [facility] HospitalUeqsflnUXFXIMEQSU7598-54-14 10:00:00 Test Item Value Reference Range Interpretation Comments MCHC (test code = MCHC) 33.7 32.0-36.0 [facility] HospitalOhuoebrNAQQLDJXLQ9886-95-68 10:00:00 Test Item Value Reference Range Interpretation Comments MCH (test code = MCH) 26.9 pg 27.0-31.0 [facility] HospitalWoeigzyPHPDNNHXCF4906-35-69 10:00:00 Test Item Value Reference Range Interpretation Comments RBC (test code = RBC) 3.47 4.70-6.10 [facility] HospitalAayrsujTYHGGXOYRK6955-68-43 10:00:00 Test Item Value Reference Range Interpretation Comments WBC (test code = WBC) 9.8 3.7-10.4 [facility] HospitalLmbsppmVSEOMNNPOT7651-01-90 10:00:00 Test Item Value Reference Range Interpretation Comments MCV (test code = MCV) 79.8 80.0-94.0 [facility] HospitalGlevjbxRFSSZBQXHS5897-46-54 10:00:00 Test Item Value Reference Range Interpretation Comments Hct (test code = Hct) 27.7 42.0-54.0 [facility] HospitalAasfbjtEKDCYEOYEI9681-38-01 10:00:00 Test Item Value Reference Range Interpretation Comments Hgb (test code = Hgb) 9.3 14.0-18.0 [facility] HospitalBolhucaKLKHMOPHHB3943-35-85 10:00:00 Test Item Value Reference Range Interpretation Comments Microcyte (test code = 1+ *ABN*(12/08/14 Microcyte) 5:00 AM) [facility] HospitalFevywxkMDWUCTWCMR0150-35-17 10:00:00 Test Item Value Reference Range Interpretation Comments Basophils # (test code = Basophils #) 0.1 <=0.2 [facility] HospitalQzoxnfvBOZMIVPZEG8143-94-93 10:00:00 Test Item Value Reference Range Interpretation Comments Monocytes (test code = Monocytes) 14.5 2.0-12.0 [facility] HospitalQxqohsiZDNAVXPRQI5241-78-73 10:00:00 Test Item Value Reference Range Interpretation Comments Lymphocytes # (test code = Lymphocytes 3.2 1.0-5.5 #) [facility] HospitalNcnwoptAOOQTQJTBB7304-26-40 10:00:00 Test Item Value Reference Range Interpretation Comments Monocytes # (test code = Monocytes #) 1.4 <=0.8 [facility]JnxomlmAAQKBNGWLN8381-36-71 10:00:00 Test Item Value Reference Range Interpretation Comments Eosinophils # (test code = Eosinophils 0.6 <=0.5 #) [facility]NrlscnpNKRTBNPWVU4342-81-42 10:00:00 Test Item Value Reference Range Interpretation Comments Segs (test code = Segs) 46.3 45.0-75.0 [facility]PpiytbrIOINBGQAXX2586-79-77 10:00:00 Test Item Value Reference Range Interpretation Comments Plt Morph (test code = Normal (12/08/14 5:00 Plt Morph) AM) [facility] HospitalVqfckbdKGEVDQPYAP1762-84-43 10:00:00 Test Item Value Reference Range Interpretation Comments Basophils (test code = Basophils) 1.1 <=1.0 [facility] HospitalIebpbcpQBNUXEZYAN8948-57-80 10:00:00 Test Item Value Reference Range Interpretation Comments Segs-Bands # (test code = Segs-Bands #) 4.6 1.5-8.1 [facility] CenterHntveqnGTDREGRABH3187-32-60 10:00:00 Test Item Value Reference Range Interpretation Comments Eosinophils (test code = Eosinophils) 6.1 <=4.0 [facility] CenterVuaunpzUMTCOZOUXB9740-95-33 10:00:00 Test Item Value Reference Range Interpretation Comments Lymphocytes (test code = Lymphocytes) 32.0 20.0-40.0 [facility] CenterXlctjkfGUBZIHHIZT3758-35-98 10:00:00 Test Item Value Reference Range Interpretation Comments CRP, High Sensitivity (test code = CRP, 57.7 High Sensitivity) [facility] CenterUbufbudKOWFPKTJCW5680-57-74 22:28:00 Test Item Value Reference Range Interpretation Comments Vanco Tr TND (test code = Vanco Tr TND) 1800 [facility] CenterHrugnhjJSDPUSGPVO4113-87-41 22:28:00 Test Item Value Reference Range Interpretation Comments Vanco Tr (test code = Vanco Tr) 17.7 [facility] CenterCHEM UHJKQ2869-80-42 08:34:00 Test Item Value Reference Range Interpretation Comments eGFR (test code = eGFR) 65 [facility] CenterannCHEM TWDYK4659-83-40 08:34:00 Test Item Value Reference Range Interpretation Comments Potassium Lvl (test code = Potassium 5.1 3.5-5.1 Lvl) [facility]2015-05-10 08:34:00 Test Item Value Reference Range Interpretation Comments Sodium Lvl (test code = Sodium Lvl) 132 135-145 [facility]2015-05-10 08:34:00 Test Item Value Reference Range Interpretation Comments CO2 (test code = CO2) 23 24-32 [place] 671575-05-10 08:34:00 Test Item Value Reference Range Interpretation Comments Chloride Lvl (test code = Chloride Lvl) 98 95-109 [place] 671575-05-10 08:34:00 Test Item Value Reference Range Interpretation Comments Calcium Lvl (test code = Calcium Lvl) 8.5 8.5-10.5 [facility]2015-05-10 08:34:00 Test Item Value Reference Range Interpretation Comments Creatinine Lvl (test code = Creatinine 1.3 0.5-1.4 Lvl) [facility]2015-05-10 08:34:00 Test Item Value Reference Range Interpretation Comments BUN (test code = BUN) 25 7-22 [place] 671575-05-10 08:34:00 Test Item Value Reference Range Interpretation Comments Glucose Lvl (test code = Glucose Lvl) 384 70-99 [facility]2015-05-10 08:34:00 Test Item Value Reference Range Interpretation Comments AGAP (test code = AGAP) 16.1 10.0-20.0 [place] 506465-05-10 08:34:00 Test Item Value Reference Range Interpretation Comments WBC (test code = WBC) 8.6 3.7-10.4 [facility]QuxyagcOICQPCZIVY0413-97-50 08:34:00 Test Item Value Reference Range Interpretation Comments RBC (test code = RBC) 3.75 4.70-6.10 [facility] HospitalQeahkwjLNEHTAARQX7156-47-95 08:34:00 Test Item Value Reference Range Interpretation Comments Hct (test code = Hct) 30.6 42.0-54.0 [place] 506465-05-10 08:34:00 Test Item Value Reference Range Interpretation Comments MCV (test code = MCV) 81.6 80.0-94.0 [place] 506465-05-10 08:34:00 Test Item Value Reference Range Interpretation Comments Hgb (test code = Hgb) 9.9 14.0-18.0 [facility] HospitalSthaduqGEFXEYRJHF8700-72-10 08:34:00 Test Item Value Reference Range Interpretation Comments RDW (test code = RDW) 18.0 11.5-14.5 [facility] HospitalJvrctgzPBVMZVMWGJ1009-36-37 08:34:00 Test Item Value Reference Range Interpretation Comments MCH (test code = MCH) 26.5 pg 27.0-31.0 [facility] HospitalTvzhtlpOGELFOSGKS2133-20-09 08:34:00 Test Item Value Reference Range Interpretation Comments MPV (test code = MPV) 7.3 7.4-10.4 [facility] HospitalAhzrwgyJVSHIIKOPH7854-95-30 08:34:00 Test Item Value Reference Range Interpretation Comments MCHC (test code = MCHC) 32.4 32.0-36.0 [facility] HospitalDoruqdgSJUIWKEYPI8247-53-82 08:34:00 Test Item Value Reference Range Interpretation Comments Platelet (test code = Platelet) 354 133-450 [facility] HospitalHsbvofmRRAXGAUCTZ9799-11-50 08:34:00 Test Item Value Reference Range Interpretation Comments Lymphocytes (test code = Lymphocytes) 21.6 20.0-40.0 [facility] HospitalYvrnfagAKIXPHGUAM6960-24-21 08:34:00 Test Item Value Reference Range Interpretation Comments Monocytes (test code = Monocytes) 5.3 2.0-12.0 [facility] HospitalNqiqzxbQCZCLAWXIB5051-05-75 08:34:00 Test Item Value Reference Range Interpretation Comments Eosinophils (test code = Eosinophils) 3.1 <=4.0 [facility] HospitalDktvlmzKARMIUCIIT3432-71-98 08:34:00 Test Item Value Reference Range Interpretation Comments Basophils (test code = Basophils) 0.8 <=1.0 [facility] HospitalStvdrtaELMATTXSJJ6269-13-89 08:34:00 Test Item Value Reference Range Interpretation Comments Segs-Bands # (test code = Segs-Bands #) 5.9 1.5-8.1 [facility] HospitalQvvpppnLIGAYBNRKN9851-36-88 08:34:00 Test Item Value Reference Range Interpretation Comments Segs (test code = Segs) 69.2 45.0-75.0 [facility] HospitalEmroauhSQVDFDQOIJ1803-86-05 08:34:00 Test Item Value Reference Range Interpretation Comments Monocytes # (test code = Monocytes #) 0.5 <=0.8 [facility] HospitalQsagqohMGBIUPSZYB7140-05-24 08:34:00 Test Item Value Reference Range Interpretation Comments Eosinophils # (test code = Eosinophils 0.3 <=0.5 #) [facility]ApmywcwMTBNHSAVVD2260-05-84 08:34:00 Test Item Value Reference Range Interpretation Comments Basophils # (test code = Basophils #) 0.1 <=0.2 [facility] HospitalLyycvrrSMALDCPXKH5794-16-72 08:34:00 Test Item Value Reference Range Interpretation Comments Lymphocytes # (test code = Lymphocytes 1.9 1.0-5.5 #) [facility]EfoklczIGRPJLXPEJ4412-07-45 08:34:00 Test Item Value Reference Range Interpretation Comments CRP, High Sensitivity (test code = CRP, 46.6 High Sensitivity) [facility]OlubkpgYRMZSAGMEEVJ8461-46-91 00:54:00 Test Item Value Reference Range Interpretation Comments CO2 (test code = CO2) 25 24-32 [facility] HospitalHiddvojAFYTYMPIRQZV2532-79-39 00:54:00 Test Item Value Reference Range Interpretation Comments AGAP (test code = AGAP) 12.9 10.0-20.0 [facility] HospitalGjklhjsUEIORRTTHDAB9386-23-27 00:54:00 Test Item Value Reference Range Interpretation Comments BUN (test code = BUN) 26 7-22 [facility] HospitalFogqoswAYUDGDJZFHHS2181-82-20 00:54:00 Test Item Value Reference Range Interpretation Comments Glucose Lvl (test code = Glucose Lvl) 271 70-99 [facility] HospitalCbaiyxmPYVXODOSOAPL9208-25-39 00:54:00 Test Item Value Reference Range Interpretation Comments Creatinine Lvl (test code = Creatinine 1.3 0.5-1.4 Lvl) [facility] HospitalSbdqbtmOGCCBJXNVFYF7820-91-69 00:54:00 Test Item Value Reference Range Interpretation Comments Potassium Lvl (test code = Potassium 4.9 3.5-5.1 Lvl) [facility] HospitalVvhbnofDGGZKHMAXQDW3765-86-46 00:54:00 Test Item Value Reference Range Interpretation Comments Chloride Lvl (test code = Chloride Lvl) 100 95-109 [facility] HospitalLqxvflrRJQDDTJFETAE1690-28-79 00:54:00 Test Item Value Reference Range Interpretation Comments Sodium Lvl (test code = Sodium Lvl) 133 135-145 [facility] HospitalVuliticHJPDSNDDYHAF5097-90-66 00:54:00 Test Item Value Reference Range Interpretation Comments Calcium Lvl (test code = Calcium Lvl) 8.4 8.5-10.5 [facility] HospitalZjcfosnEKKKRRRKMCAU5552-95-73 00:54:00 Test Item Value Reference Range Interpretation Comments eGFR (test code = eGFR) 65 [facility] HospitalUkktmtwERCUVGBTFL3861-57-26 09:52:00 Test Item Value Reference Range Interpretation Comments WBC (test code = WBC) 11.6 3.7-10.4 [facility] HospitalIfxaehbFGAPJUAIVD0696-57-70 09:52:00 Test Item Value Reference Range Interpretation Comments RBC (test code = RBC) 3.88 4.70-6.10 [facility] HospitalYxodnfsCEIJENMKNU0576-25-71 09:52:00 Test Item Value Reference Range Interpretation Comments Hgb (test code = Hgb) 10.2 14.0-18.0 [facility] HospitalBdazpkfPDSRWVNYNI5966-71-62 09:52:00 Test Item Value Reference Range Interpretation Comments MCHC (test code = MCHC) 32.5 32.0-36.0 [facility] HospitalLieywzhVQKDFPAUND3536-17-35 09:52:00 Test Item Value Reference Range Interpretation Comments MCH (test code = MCH) 26.2 pg 27.0-31.0 [facility] HospitalBtnedoqNPTJBOKOBG0189-56-61 09:52:00 Test Item Value Reference Range Interpretation Comments RDW (test code = RDW) 18.0 11.5-14.5 [facility] HospitalKtsppsbCKFBJYDLHS8157-84-25 09:52:00 Test Item Value Reference Range Interpretation Comments MCV (test code = MCV) 80.7 80.0-94.0 [facility] HospitalTmqmpicTUTHRRCZKF2838-84-68 09:52:00 Test Item Value Reference Range Interpretation Comments Hct (test code = Hct) 31.3 42.0-54.0 [facility] HospitalAghinluJCHVKUXHUB6343-75-15 09:52:00 Test Item Value Reference Range Interpretation Comments MPV (test code = MPV) 6.8 7.4-10.4 [facility] HospitalIauggonXXVSLHROOD7622-24-57 09:52:00 Test Item Value Reference Range Interpretation Comments Platelet (test code = Platelet) 424 133-450 [facility] HospitalVkxumhaIKGIUXZGJY3435-03-70 09:52:00 Test Item Value Reference Range Interpretation Comments Segs-Bands # (test code = Segs-Bands #) 9.9 1.5-8.1 [facility] HospitalWanhqssPJXNOXQADY1045-89-14 09:52:00 Test Item Value Reference Range Interpretation Comments Lymphocytes # (test code = Lymphocytes 1.1 1.0-5.5 #) [facility] HospitalFtiwefqELADUDAFKP0934-71-54 09:52:00 Test Item Value Reference Range Interpretation Comments Monocytes # (test code = Monocytes #) 0.6 <=0.8 [facility] HospitalFdttdezZZMINCPSJL0797-76-05 09:52:00 Test Item Value Reference Range Interpretation Comments Eosinophils # (test code = Eosinophils 0.0 <=0.5 #) [facility] HospitalEocpuzaEAOSQWMSSI4849-32-84 09:52:00 Test Item Value Reference Range Interpretation Comments Monocytes (test code = Monocytes) 5.2 2.0-12.0 [facility] HospitalOnkxoutLANSTROGMM1215-74-54 09:52:00 Test Item Value Reference Range Interpretation Comments Eosinophils (test code = Eosinophils) 0.3 <=4.0 [facility] HospitalSmgfamoAQYBRAXIXU2153-76-30 09:52:00 Test Item Value Reference Range Interpretation Comments Segs (test code = Segs) 85.0 45.0-75.0 [facility] HospitalXydmleeGKYYYYTWLN5661-78-81 09:52:00 Test Item Value Reference Range Interpretation Comments Lymphocytes (test code = Lymphocytes) 9.1 20.0-40.0 [facility] HospitalEmwueszYHGCPCHXTS4466-62-48 09:52:00 Test Item Value Reference Range Interpretation Comments RBC Morph (test code = Normal (12/06/14 4:52 AM) RBC Morph) [facility] HospitalUtrkvpeQZUXQIBANZ7891-70-25 09:52:00 Test Item Value Reference Range Interpretation Comments Plt Morph (test code = Normal (12/06/14 4:52 AM) Plt Morph) [facility] HospitalVoytxzvXQYGNVPSPU2760-36-76 09:52:00 Test Item Value Reference Range Interpretation Comments Basophils (test code = Basophils) 0.4 <=1.0 [facility]thesixtyone OZTKGWA8364-47-88 22:41:00 Test Item Value Reference Range Interpretation Comments Antibody Scrn (test Negative (12/05/14 5:41 code = Antibody Scrn) PM) [facility]Health[facility] XDHNLIO6579-41-24 22:41:00 Test Item Value Reference Range Interpretation Comments ABO/Rh (test code = ABO/Rh) O NEG [facility] CenterKklwbwfAZPILSKSPF8182-78-18 22:41:00 Test Item Value Reference Range Interpretation Comments Prealbumin (test code = Prealbumin) 19.3 18.0-45.0 [facility] SLZKYRMQZ2535-78-50 22:41:00 Test Item Value Reference Range Interpretation Comments Hgb A1C (test code = Hgb A1C) 8.3 [facility] [id number] 19:56:00 Test Item Value Reference Range Interpretation Comments A/G Ratio (test code = A/G Ratio) 0.9 0.7-1.6 [facility] [id number] 19:56:00 Test Item Value Reference Range Interpretation Comments Globulin (test code = Globulin) 3.7 2.0-4.0 [facility]2015-05-08 19:56:00 Test Item Value Reference Range Interpretation Comments B/C Ratio (test code = B/C Ratio) 23 6-25 [facility] VGYMW9687-52-94 19:56:00 Test Item Value Reference Range Interpretation Comments ALT (test code = ALT) 37 <=65 [facility] XQRKD9328-51-47 19:56:00 Test Item Value Reference Range Interpretation Comments Total Protein (test code = Total 6.9 6.4-8.4 Protein) [facility]2015-05-08 19:56:00 Test Item Value Reference Range Interpretation Comments Bili Total (test code = Bili Total) 0.6 0.2-1.3 [facility] ZRMAE7681-52-51 19:56:00 Test Item Value Reference Range Interpretation Comments Alk Phos (test code = Alk Phos) 172 39-136 [facility]2015-05-08 19:56:00 Test Item Value Reference Range Interpretation Comments AST (test code = AST) 24 <=37 [facility] FVTEX3266-77-77 19:56:00 Test Item Value Reference Range Interpretation Comments Albumin Lvl (test code = Albumin Lvl) 3.2 3.5-5.0 [facility] CenterXluehbfMSCCNDQKIQ7335-85-78 19:56:00 Test Item Value Reference Range Interpretation Comments Microcyte (test code = 1+ *ABN*(12/05/14 2:56 Microcyte) PM) [facility] HospitalFtipnksUBKEAZHVAE2762-76-32 19:56:00 Test Item Value Reference Range Interpretation Comments Basophils # (test code = Basophils #) 0.1 <=0.2 [facility]HqekiagUHIGVDREMMTJ4290-82-10 09:10:00 Test Item Value Reference Range Interpretation Comments AGAP (test code = AGAP) 10.5 10.0-20.0 [facility] HospitalHchjnktLVBAPOBHIPMH8280-12-46 09:10:00 Test Item Value Reference Range Interpretation Comments eGFR (test code = eGFR) 72 [facility] HospitalFeodvdfYYBEAREBBHUY4991-80-45 09:10:00 Test Item Value Reference Range Interpretation Comments Creatinine Lvl (test code = Creatinine 1.2 0.5-1.4 Lvl) [facility] HospitalNixhplrZJGGPPICNGHV2152-96-53 09:10:00 Test Item Value Reference Range Interpretation Comments Calcium Lvl (test code = Calcium Lvl) 8.7 8.5-10.5 [facility] HospitalZndfibrSRNLXHBONQRW5682-13-39 09:10:00 Test Item Value Reference Range Interpretation Comments Potassium Lvl (test code = Potassium 4.5 3.5-5.1 Lvl) [facility] HospitalIottjuiNZOETQSPQAFA0200-71-94 09:10:00 Test Item Value Reference Range Interpretation Comments Sodium Lvl (test code = Sodium Lvl) 138 135-145 [facility] HospitalDtrjbqaIKFVBCTIHFGX4183-18-70 09:10:00 Test Item Value Reference Range Interpretation Comments CO2 (test code = CO2) 30 24-32 [facility] HospitalBjpszmiHBHBVEGQUMYL9753-05-82 09:10:00 Test Item Value Reference Range Interpretation Comments Chloride Lvl (test code = Chloride Lvl) 102 95-109 [facility] HospitalVimwzivNYWQXQRAQRPS4961-30-56 09:10:00 Test Item Value Reference Range Interpretation Comments BUN (test code = BUN) 17 7-22 [facility] HospitalDtmeeerJRQMQQMUCPKI7239-61-15 09:10:00 Test Item Value Reference Range Interpretation Comments Glucose Lvl (test code = Glucose Lvl) 67 70-99 [facility] HospitalCvjffpmUXXQWADVAC7802-32-44 09:10:00 Test Item Value Reference Range Interpretation Comments WBC (test code = WBC) 11.4 3.7-10.4 [facility] HospitalJkdtbnkMVJRJLHPSQ8880-94-34 09:10:00 Test Item Value Reference Range Interpretation Comments Hgb (test code = Hgb) 9.3 14.0-18.0 [facility] HospitalUmdxbgaCNUYQWDSZJ4908-48-87 09:10:00 Test Item Value Reference Range Interpretation Comments RBC (test code = RBC) 3.51 4.70-6.10 [facility] HospitalYwefcwvJCQPFBYGWH7348-03-73 09:10:00 Test Item Value Reference Range Interpretation Comments MCH (test code = MCH) 26.5 pg 27.0-31.0 [facility] HospitalCzjyhbdOCGQBNCWBO2017-47-74 09:10:00 Test Item Value Reference Range Interpretation Comments MCV (test code = MCV) 78.2 80.0-94.0 [facility] HospitalMlhsahyYGKYEVTWVM9406-92-52 09:10:00 Test Item Value Reference Range Interpretation Comments Hct (test code = Hct) 27.4 42.0-54.0 [facility] HospitalRxniwmpWJVMEHVFYD1679-82-24 09:10:00 Test Item Value Reference Range Interpretation Comments RDW (test code = RDW) 14.4 11.5-14.5 [facility] HospitalRawgfvqLCNAADOJXI3292-00-07 09:10:00 Test Item Value Reference Range Interpretation Comments MCHC (test code = MCHC) 33.9 32.0-36.0 [facility] HospitalZqsbcbuSIPJHIVVGL6588-36-78 09:10:00 Test Item Value Reference Range Interpretation Comments MPV (test code = MPV) 6.3 7.4-10.4 [facility] HospitalIdeuejeYBODCSHGSR2848-60-63 09:10:00 Test Item Value Reference Range Interpretation Comments Platelet (test code = Platelet) 647 133450 [facility] HospitalMcukircAPLZKHVVUX5279-65-66 09:10:00 Test Item Value Reference Range Interpretation Comments Eosinophils # (test code = Eosinophils 0.7 <=0.5 #) [facility] HospitalBulzuacPTDPRPRZWG5794-49-19 09:10:00 Test Item Value Reference Range Interpretation Comments RBC Morph (test code = Normal (10/30/14 4:10 AM) RBC Morph) [facility] HospitalRdayiddNIBFCRKKXM2820-31-85 09:10:00 Test Item Value Reference Range Interpretation Comments Monocytes (test code = Monocytes) 9.1 2.0-12.0 [facility] HospitalBvcvavgXRSUZLLJXD1293-89-65 09:10:00 Test Item Value Reference Range Interpretation Comments Lymphocytes (test code = Lymphocytes) 19.4 20.0-40.0 [facility] HospitalAxtdhakSRPYUVILBW0630-65-28 09:10:00 Test Item Value Reference Range Interpretation Comments Segs (test code = Segs) 64.5 45.0-75.0 [facility] HospitalDplewgmNLQEPEVHXW1573-00-86 09:10:00 Test Item Value Reference Range Interpretation Comments Plt Morph (test code = Normal (10/30/14 4:10 AM) Plt Morph) [facility] HospitalSakyzgrUZDTKKELKK2532-87-77 09:10:00 Test Item Value Reference Range Interpretation Comments Lymphocytes # (test code = Lymphocytes 2.2 1.0-5.5 #) [facility] HospitalUwgtwnnXNVHSZZSYV8246-75-41 09:10:00 Test Item Value Reference Range Interpretation Comments Eosinophils (test code = Eosinophils) 6.2 <=4.0 [facility] HospitalWleunadBMMVVBFUNZ9218-51-92 09:10:00 Test Item Value Reference Range Interpretation Comments Basophils (test code = Basophils) 0.8 <=1.0 [facility] HospitalCxrbiukZSSUBACJCT4248-43-68 09:10:00 Test Item Value Reference Range Interpretation Comments Monocytes # (test code = Monocytes #) 1.0 <=0.8 [facility] HospitalNcyzmnyIGOZBPQZCO1844-04-82 09:10:00 Test Item Value Reference Range Interpretation Comments Segs-Bands # (test code = Segs-Bands #) 7.3 1.5-8.1 [facility] HospitalVyicwbxHIUHFQVCYI0879-95-75 09:10:00 Test Item Value Reference Range Interpretation Comments Microcyte (test code = 1+ *ABN*(10/30/14 4:10 Microcyte) AM) [facility] HospitalUqshlcjUDXVMMEEAW8652-69-20 09:10:00 Test Item Value Reference Range Interpretation Comments Basophils # (test code = Basophils #) 0.1 <=0.2 [facility]2015-03-31 09:53:00 Test Item Value Reference Range Interpretation Comments Calcium Lvl (test code = Calcium Lvl) 8.8 8.5-10.5 [facility]2015-03-31 09:53:00 Test Item Value Reference Range Interpretation Comments Potassium Lvl (test code = Potassium 4.4 3.5-5.1 Lvl) [facility]2015-03-31 09:53:00 Test Item Value Reference Range Interpretation Comments Sodium Lvl (test code = Sodium Lvl) 138 135-145 [facility]2015-03-31 09:53:00 Test Item Value Reference Range Interpretation Comments Chloride Lvl (test code = Chloride Lvl) 102 95-109 [facility]2015-03-31 09:53:00 Test Item Value Reference Range Interpretation Comments Creatinine Lvl (test code = Creatinine 1.2 0.5-1.4 Lvl) [facility]2015-03-31 09:53:00 Test Item Value Reference Range Interpretation Comments eGFR (test code = eGFR) 72 [place] 671575-03-31 09:53:00 Test Item Value Reference Range Interpretation Comments AGAP (test code = AGAP) 11.4 10.0-20.0 [place] 671575-03-31 09:53:00 Test Item Value Reference Range Interpretation Comments CO2 (test code = CO2) 29 24-32 [place] 671575-03-31 09:53:00 Test Item Value Reference Range Interpretation Comments BUN (test code = BUN) 16 7-22 [place] 671575-03-31 09:53:00 Test Item Value Reference Range Interpretation Comments Glucose Lvl (test code = Glucose Lvl) 50 70-99 [facility] HospitalOzjasqiVNTSDAVFPM8798-32-59 09:53:00 Test Item Value Reference Range Interpretation Comments MPV (test code = MPV) 6.8 7.4-10.4 [facility] HospitalPmwrockIDYFDOFJUT8783-41-43 09:53:00 Test Item Value Reference Range Interpretation Comments RDW (test code = RDW) 14.4 11.5-14.5 [facility] HospitalNytctgnLBXGDSXMRJ5022-24-42 09:53:00 Test Item Value Reference Range Interpretation Comments Platelet (test code = Platelet) 710 133-450 [facility] HospitalOvwpnshEIQLWCLGKA0360-16-48 09:53:00 Test Item Value Reference Range Interpretation Comments MCH (test code = MCH) 26.5 pg 27.0-31.0 [facility] HospitalTiynbmjLCVIGHZMOD2991-24-66 09:53:00 Test Item Value Reference Range Interpretation Comments MCHC (test code = MCHC) 33.8 32.0-36.0 [facility] HospitalGvoetkqAILBGMYMNT2652-68-37 09:53:00 Test Item Value Reference Range Interpretation Comments MCV (test code = MCV) 78.6 80.0-94.0 [facility] HospitalDsjrmvjBRLXLJQRSO4771-05-71 09:53:00 Test Item Value Reference Range Interpretation Comments WBC (test code = WBC) 12.9 3.7-10.4 [facility] HospitalGmbhxutOOBYCYQGNU8178-37-98 09:53:00 Test Item Value Reference Range Interpretation Comments RBC (test code = RBC) 3.61 4.70-6.10 [facility] HospitalWvuvrzgQCSBERQAFI1194-84-17 09:53:00 Test Item Value Reference Range Interpretation Comments Hgb (test code = Hgb) 9.6 14.0-18.0 [facility] HospitalIrvfipeIPYMSMKDTK5415-26-54 09:53:00 Test Item Value Reference Range Interpretation Comments Hct (test code = Hct) 28.3 42.0-54.0 [facility] HospitalGedvxudZKSTPYDPLT2526-07-14 09:53:00 Test Item Value Reference Range Interpretation Comments Monocytes # (test code = Monocytes #) 1.5 <=0.8 [place] 506465-03-31 09:53:00 Test Item Value Reference Range Interpretation Comments Eosinophils # (test code = Eosinophils 1.1 <=0.5 #) [facility] HospitalVeczbxaHLPQJMPZXU4463-23-22 09:53:00 Test Item Value Reference Range Interpretation Comments Basophils (test code = Basophils) 0.8 <=1.0 [facility] HospitalAljhfryEHEYUYNFGB7228-05-59 09:53:00 Test Item Value Reference Range Interpretation Comments Microcyte (test code = 1+ *ABN*(10/28/14 Microcyte) 4:53 AM) [facility] HospitalMcvlwcbWWGOEXZXXN4853-67-92 09:53:00 Test Item Value Reference Range Interpretation Comments Basophils # (test code = Basophils #) 0.1 <=0.2 [place] 506465-03-31 09:53:00 Test Item Value Reference Range Interpretation Comments Segs-Bands # (test code = Segs-Bands #) 7.7 1.5-8.1 [facility] HospitalXawdicxAEFOZAKKME1518-41-18 09:53:00 Test Item Value Reference Range Interpretation Comments Lymphocytes # (test code = Lymphocytes 2.5 1.0-5.5 #) [facility] HospitalEvoplcxQHOJBQSDVP6071-75-24 09:53:00 Test Item Value Reference Range Interpretation Comments Segs (test code = Segs) 59.4 45.0-75.0 [facility]WtculijPMHJTQYWFV5031-46-39 09:53:00 Test Item Value Reference Range Interpretation Comments Monocytes (test code = Monocytes) 11.9 2.0-12.0 [facility]EuavwvnDGLQEIYQWW7895-19-53 09:53:00 Test Item Value Reference Range Interpretation Comments Eosinophils (test code = Eosinophils) 8.3 <=4.0 [facility] HospitalAgodwuxAOELVXECMG2227-21-09 09:53:00 Test Item Value Reference Range Interpretation Comments Lymphocytes (test code = Lymphocytes) 19.6 20.0-40.0 [facility] QTHHYV0384-25-76 18:14:00 Test Item Value Reference Range Interpretation Comments Crystal BF Type (test Synovial (10/27/14 1:14 code = Crystal BF PM) Type) [facility] FLIRQS3339-39-15 18:14:00 Test Item Value Reference Range Interpretation Comments Crystal BF (test code Negative (10/27/14 1:14 = Crystal BF) PM) [facility]EqhnubqZUWXZXFXXH9991-34-68 17:07:00 Test Item Value Reference Range Interpretation Comments Vanco Tr (test code = Vanco Tr) 18.6 [facility] CenterEcpeuffRIGTZXGOIV1993-95-25 17:07:00 Test Item Value Reference Range Interpretation Comments Vanco Tr TND (test code = Vanco Tr TND) 1300 [facility]2015-03-30 09:51:00 Test Item Value Reference Range Interpretation Comments Uric Acid (test code = Uric Acid) 2.4 3.8-8.0 [facility]UmxmqzkIGMHHDETHXIL6495-80-43 09:51:00 Test Item Value Reference Range Interpretation Comments Sodium Lvl (test code = Sodium Lvl) 136 135-145 [facility] HospitalMginnghGFZOBZPMTRRD5418-55-42 09:51:00 Test Item Value Reference Range Interpretation Comments Chloride Lvl (test code = Chloride Lvl) 101 95-109 [facility] HospitalQwgmahtBUBERNFIBPYA0055-57-47 09:51:00 Test Item Value Reference Range Interpretation Comments Potassium Lvl (test code = Potassium 4.6 3.5-5.1 Lvl) [facility] HospitalXetqtdePSDQUMOFEHDR3996-42-30 09:51:00 Test Item Value Reference Range Interpretation Comments BUN (test code = BUN) 17 7-22 [facility] HospitalHyubyfrCOCFUXBTJZWK1398-02-46 09:51:00 Test Item Value Reference Range Interpretation Comments CO2 (test code = CO2) 27 24-32 [facility] HospitalLtoyenhHTVBWXSHKTHW4838-86-14 09:51:00 Test Item Value Reference Range Interpretation Comments Glucose Lvl (test code = Glucose Lvl) 254 70-99 [facility] HospitalRnjimlqNZXHNIYLNRAH3842-48-34 09:51:00 Test Item Value Reference Range Interpretation Comments eGFR (test code = eGFR) 80 [facility] HospitalMwrignbSBMAGKKLYSYZ8017-99-92 09:51:00 Test Item Value Reference Range Interpretation Comments Creatinine Lvl (test code = Creatinine 1.1 0.5-1.4 Lvl) [facility] HospitalRafzivbWLUBHHBRNPBR2053-13-29 09:51:00 Test Item Value Reference Range Interpretation Comments Calcium Lvl (test code = Calcium Lvl) 8.4 8.5-10.5 [facility] HospitalWseesmwRGVDLSJATXCO6504-72-61 09:51:00 Test Item Value Reference Range Interpretation Comments AGAP (test code = AGAP) 12.6 10.0-20.0 [facility] HospitalDxmesytTCLHAGBOTJ5199-52-83 09:51:00 Test Item Value Reference Range Interpretation Comments Platelet (test code = Platelet) 692 133-450 [facility] HospitalWphtmkzUGQGUZVUJT5266-44-68 09:51:00 Test Item Value Reference Range Interpretation Comments RDW (test code = RDW) 14.7 11.5-14.5 [facility] HospitalJbyswetRZLIKRMUJM4153-38-69 09:51:00 Test Item Value Reference Range Interpretation Comments MCH (test code = MCH) 25.3 pg 27.0-31.0 [facility] HospitalCiqumvkPMVUGXVRNL8580-98-23 09:51:00 Test Item Value Reference Range Interpretation Comments MCHC (test code = MCHC) 32.3 32.0-36.0 [facility] HospitalGhackqzIYAVFNGXKU1801-63-20 09:51:00 Test Item Value Reference Range Interpretation Comments Hct (test code = Hct) 27.3 42.0-54.0 [facility] HospitalGaqeyvdERLQRPGQWL4688-39-36 09:51:00 Test Item Value Reference Range Interpretation Comments MCV (test code = MCV) 78.3 80.0-94.0 [facility] HospitalAgbtuspCZNFAYYXIZ5727-80-52 09:51:00 Test Item Value Reference Range Interpretation Comments Hgb (test code = Hgb) 8.8 14.0-18.0 [facility] HospitalMljsvarWAXHLFOTKH1479-01-55 09:51:00 Test Item Value Reference Range Interpretation Comments WBC (test code = WBC) 12.3 3.7-10.4 [facility] HospitalYjojjxcOCMDEHUZGY3171-55-08 09:51:00 Test Item Value Reference Range Interpretation Comments RBC (test code = RBC) 3.49 4.70-6.10 [facility] HospitalIvwyhfeIMCXTVKIHZ8142-56-66 09:51:00 Test Item Value Reference Range Interpretation Comments MPV (test code = MPV) 6.9 7.4-10.4 [facility] HospitalAjgolgmCYIMJJSUAE3921-44-28 09:51:00 Test Item Value Reference Range Interpretation Comments Basophils # (test code = Basophils #) 0.1 <=0.2 [facility] HospitalMvvasxdTGJRHYYPQM5690-22-05 09:51:00 Test Item Value Reference Range Interpretation Comments Microcyte (test code = 1+ *ABN*(10/27/14 Microcyte) 4:51 AM) [facility] HospitalErxftynBDQDMHFPFF6086-84-93 09:51:00 Test Item Value Reference Range Interpretation Comments Monocytes # (test code = Monocytes #) 1.5 <=0.8 [facility] HospitalCgkpwzqCCAHJUQEVE6088-44-84 09:51:00 Test Item Value Reference Range Interpretation Comments Eosinophils # (test code = Eosinophils 0.8 <=0.5 #) [facility] HospitalQdmzcqxIEUDRNZILE9027-79-02 09:51:00 Test Item Value Reference Range Interpretation Comments Segs-Bands # (test code = Segs-Bands #) 7.5 1.5-8.1 [facility] HospitalCwoegyiRETXYCSPXK3706-64-30 09:51:00 Test Item Value Reference Range Interpretation Comments Lymphocytes # (test code = Lymphocytes 2.4 1.0-5.5 #) [facility] HospitalBytagvzCIITBSOEIA1798-75-25 09:51:00 Test Item Value Reference Range Interpretation Comments Eosinophils (test code = Eosinophils) 6.7 <=4.0 [facility] HospitalAotbudpKVPCYBYYGR9589-47-72 09:51:00 Test Item Value Reference Range Interpretation Comments Basophils (test code = Basophils) 1.0 <=1.0 [facility]MhekzdsBCQOGDCBHN3793-28-47 09:51:00 Test Item Value Reference Range Interpretation Comments Monocytes (test code = Monocytes) 12.3 2.0-12.0 [facility] HospitalEmtgevmQETTZVOFUR3498-00-18 09:51:00 Test Item Value Reference Range Interpretation Comments Segs (test code = Segs) 60.8 45.0-75.0 [facility] HospitalCixvjhjFHFLDXJKMX3783-00-04 09:51:00 Test Item Value Reference Range Interpretation Comments Lymphocytes (test code = Lymphocytes) 19.2 20.0-40.0 [facility]ZfgfbryCWIIHXYHXQ2573-53-57 09:51:00 Test Item Value Reference Range Interpretation Comments CRP, High Sensitivity (test code = CRP, 64.2 High Sensitivity) [facility]2015-03-28 10:48:00 Test Item Value Reference Range Interpretation Comments B/C Ratio (test code = B/C Ratio) 21 6-25 [facility]2015-03-28 10:48:00 Test Item Value Reference Range Interpretation Comments A/G Ratio (test code = A/G Ratio) 0.5 0.7-1.6 [facility]2015-03-28 10:48:00 Test Item Value Reference Range Interpretation Comments Globulin (test code = Globulin) 3.7 2.0-4.0 [facility]2015-03-28 10:48:00 Test Item Value Reference Range Interpretation Comments Albumin Lvl (test code = Albumin Lvl) 1.8 3.5-5.0 [facility]2015-03-28 10:48:00 Test Item Value Reference Range Interpretation Comments Total Protein (test code = Total 5.5 6.4-8.4 Protein) [facility]2015-03-28 10:48:00 Test Item Value Reference Range Interpretation Comments Bili Total (test code = Bili Total) 0.9 0.2-1.3 [facility]2015-03-28 10:48:00 Test Item Value Reference Range Interpretation Comments AST (test code = AST) 23 <=37 [facility]2015-03-28 10:48:00 Test Item Value Reference Range Interpretation Comments ALT (test code = ALT) 33 <=65 [facility]2015-03-28 10:48:00 Test Item Value Reference Range Interpretation Comments Alk Phos (test code = Alk Phos) 628 39-136 [facility] HospitalRpblgffAAMPOCZTJM8324-00-75 10:48:00 Test Item Value Reference Range Interpretation Comments Hypochrom (test code = 1+ (10/25/14 5:48 AM) Hypochrom) [facility] HospitalLensdacRBSVIKRQDK5622-70-83 10:48:00 Test Item Value Reference Range Interpretation Comments Plt Morph (test code = Normal (10/25/14 5:48 Plt Morph) AM) [facility] CenterXekacmwKYWORCMGUR3254-01-73 10:48:00 Test Item Value Reference Range Interpretation Comments Hep C Ab (test code = Negative *NA*(10/25/14 Hep C Ab) 5:48 AM) [facility] CenterYbyzdwtHQSPCLSSHZ3136-40-32 10:48:00 Test Item Value Reference Range Interpretation Comments Hep Bs Ag (test code Negative *NA*(10/25/14 = Hep Bs Ag) 5:48 AM) [facility] CenterFigukwsBAFAWHMSAT0424-40-72 10:48:00 Test Item Value Reference Range Interpretation Comments Hep B Core IgM (test Negative *NA*(10/25/14 code = Hep B Core 5:48 AM) IgM) [facility] CenterMlskqanATLUFFPUPI8355-48-34 10:48:00 Test Item Value Reference Range Interpretation Comments Hep A IgM (test code Negative *NA*(10/25/14 = Hep A IgM) 5:48 AM) [facility] CenterXlzwhzdMYFLJTDMQY1565-56-79 10:48:00 Test Item Value Reference Range Interpretation Comments CRP, High Sensitivity (test code = CRP, 177.0 High Sensitivity) [facility] [id number] 10:48:00 Test Item Value Reference Range Interpretation Comments Hgb A1C (test code = Hgb A1C) 9.1 [facility] [id number] 22:14:00 Test Item Value Reference Range Interpretation Comments % Satur Fe (test code = % Satur Fe) 21 12-57 [facility] [id number] 22:14:00 Test Item Value Reference Range Interpretation Comments TIBC (test code = TIBC) 147 228-428 [facility]2015-03-27 22:14:00 Test Item Value Reference Range Interpretation Comments UIBC (test code = UIBC) 116 110-370 [facility]2015-03-27 22:14:00 Test Item Value Reference Range Interpretation Comments Iron (test code = Iron) 31 45-160 [facility] CenterannANEMIA [id number] 22:14:00 Test Item Value Reference Range Interpretation Comments Ferritin Lvl (test code = Ferritin Lvl) 753 22-275 [facility] CenterEbgnyhfQMSOONUOKW1677-04-81 18:38:00 Test Item Value Reference Range Interpretation Comments Vanco Tr (test code = Vanco Tr) 5.8 [facility] CenterErbiucjZHODKJIDIM8471-26-06 18:38:00 Test Item Value Reference Range Interpretation Comments Vanco Tr TND (test code = Vanco Tr TND) 1300 [facility] CenterannIN[facility] [id number] 09:02:00 Test Item Value Reference Range Interpretation Comments UA Sq Epi (test code = UA Sq Epi) None Seen [facility]annINSP[facility] [id number] 09:02:00 Test Item Value Reference Range Interpretation Comments UA Urobilinogen (test code = UA <=1.0 mg/dL 0.1-1.0 Urobilinogen) [facility] CenterannURINE AND [id number] 09:02:00 Test Item Value Reference Range Interpretation Comments UA Mucus (test code = UA Mucus) Few /LPF [facility]annINSP[facility] [id number] 09:02:00 Test Item Value Reference Range Interpretation Comments UA WBC (test code = UA WBC) 1 <=5 [facility]annUR[facility] AND [id number] 09:02:00 Test Item Value Reference Range Interpretation Comments UA Leuk Est (test Negative (10/24/14 4:02 code = UA Leuk Est) AM) [facility] AND [id number] 09:02:00 Test Item Value Reference Range Interpretation Comments UA Nitrite (test code Negative (10/24/14 4:02 = UA Nitrite) AM) [facility]UR[facility] AND [id number] 09:02:00 Test Item Value Reference Range Interpretation Comments UA RBC (test code = UA RBC) no gt <=2 [facility]annURINE AND [id number] 09:02:00 Test Item Value Reference Range Interpretation Comments UA Blood (test code = Trace *ABN*(10/24/14 UA Blood) 4:02 AM) [facility]annIN[facility] [id number] 09:02:00 Test Item Value Reference Range Interpretation Comments UA Bili (test code = Negative *NA*(10/24/14 UA Bili) 4:02 AM) [facility] AND [id number] 09:02:00 Test Item Value Reference Range Interpretation Comments UA Protein (test code = UA Protein) 100 mg/dL [facility] AND [id number] 09:02:00 Test Item Value Reference Range Interpretation Comments UA pH (test code = UA pH) 5.5 5.0-8.0 [facility] AND [id number] 09:02:00 Test Item Value Reference Range Interpretation Comments UA Spec Grav (test code = UA Spec Grav) 1.022 [facility] AND [id number] 09:02:00 Test Item Value Reference Range Interpretation Comments UA Ketones (test code = UA Ketones) 60 mg/dL [facility] AND [id number] 09:02:00 Test Item Value Reference Range Interpretation Comments UA Glucose (test code = UA >=1000 mg/dL Glucose) [facility] AND [id number] 09:02:00 Test Item Value Reference Range Interpretation Comments UA Turbidity (test code = Clear (10/24/14 4:02 UA Turbidity) AM) [facility] AND [id number] 09:02:00 Test Item Value Reference Range Interpretation Comments UA Color (test code = Yellow *NA*(10/24/14 UA Color) 4:02 AM) [facility]2015-03-27 08:36:00 Test Item Value Reference Range Interpretation Comments Total Protein (test code = Total 6.8 6.4-8.4 Protein) [facility]2015-03-27 08:36:00 Test Item Value Reference Range Interpretation Comments Bili Total (test code = Bili Total) 2.0 0.2-1.3 [facility]2015-03-27 08:36:00 Test Item Value Reference Range Interpretation Comments Albumin Lvl (test code = Albumin Lvl) 2.3 3.5-5.0 [facility]2015-03-27 08:36:00 Test Item Value Reference Range Interpretation Comments AST (test code = AST) 24 <=37 [facility]2015-03-27 08:36:00 Test Item Value Reference Range Interpretation Comments ALT (test code = ALT) 46 <=65 [facility]2015-03-27 08:36:00 Test Item Value Reference Range Interpretation Comments Alk Phos (test code = Alk Phos) 891 39-136 [facility]2015-03-27 08:36:00 Test Item Value Reference Range Interpretation Comments B/C Ratio (test code = B/C Ratio) 13 6-25 [facility]2015-03-27 08:36:00 Test Item Value Reference Range Interpretation Comments Globulin (test code = Globulin) 4.5 2.0-4.0 [facility]2015-03-27 08:36:00 Test Item Value Reference Range Interpretation Comments A/G Ratio (test code = A/G Ratio) 0.5 0.7-1.6 [facility]2015-03-27 08:36:00 Test Item Value Reference Range Interpretation Comments Magnesium Lvl (test code = Magnesium 1.8 1.8-2.4 Lvl) [facility] HospitalRiskjqmPSXSZTHDPQ9847-81-90 08:36:00 Test Item Value Reference Range Interpretation Comments Sed Rate (test code = Sed Rate) >100 mm/hr <=15 [facility] HospitalCnkjywgBQHIBZXKRS7882-98-03 08:36:00 Test Item Value Reference Range Interpretation Comments PT (test code = PT) 13.7 s 12.0-14.7 [facility] HospitalRteycrxQAFOQEWYIX3308-87-46 08:36:00 Test Item Value Reference Range Interpretation Comments INR (test code = INR) 1.05 0.85-1.17 [facility] [id number] 08:36:00 Test Item Value Reference Range Interpretation Comments Hgb A1C (test code = Hgb A1C) 9.1 [facility]2015-02-11 11:37:00 Test Item Value Reference Range Interpretation Comments Glucose Lvl (test code = Glucose Lvl) 313 70-99 [facility]2015-02-11 11:37:00 Test Item Value Reference Range Interpretation Comments CO2 (test code = CO2) 27 24-32 [facility]2015-02-11 11:37:00 Test Item Value Reference Range Interpretation Comments Potassium Lvl (test code = Potassium 4.7 3.5-5.1 Lvl) [facility]2015-02-11 11:37:00 Test Item Value Reference Range Interpretation Comments Chloride Lvl (test code = Chloride Lvl) 99 95-109 [facility]2015-02-11 11:37:00 Test Item Value Reference Range Interpretation Comments eGFR (test code = eGFR) 80 [facility]2015-02-11 11:37:00 Test Item Value Reference Range Interpretation Comments Sodium Lvl (test code = Sodium Lvl) 134 135-145 [facility]2015-02-11 11:37:00 Test Item Value Reference Range Interpretation Comments Creatinine Lvl (test code = Creatinine 1.1 0.5-1.4 Lvl) [facility]2015-02-11 11:37:00 Test Item Value Reference Range Interpretation Comments BUN (test code = BUN) 16 7-22 [facility]2015-02-11 11:37:00 Test Item Value Reference Range Interpretation Comments Calcium Lvl (test code = Calcium Lvl) 8.1 8.5-10.5 [facility]2015-02-11 11:37:00 Test Item Value Reference Range Interpretation Comments AGAP (test code = AGAP) 12.7 10.0-20.0 [facility] HospitalCdxfiyyZHMHXXKBNS5124-08-02 11:37:00 Test Item Value Reference Range Interpretation Comments MCHC (test code = MCHC) 33.1 32.0-36.0 [facility] HospitalIvwbgefWWYBOGOIFB2226-87-73 11:37:00 Test Item Value Reference Range Interpretation Comments MPV (test code = MPV) 7.9 7.4-10.4 [facility] HospitalQfsnmnmSNOXBMNRGP9565-46-36 11:37:00 Test Item Value Reference Range Interpretation Comments Platelet (test code = Platelet) 381 133-450 [facility] HospitalNkeycyqZNERRHFHEB0003-27-20 11:37:00 Test Item Value Reference Range Interpretation Comments RDW (test code = RDW) 13.3 11.5-14.5 [facility] HospitalXavnhszTNANTIOMQH8288-55-56 11:37:00 Test Item Value Reference Range Interpretation Comments Hgb (test code = Hgb) 12.3 14.0-18.0 [facility] HospitalFkjqzwcWMGMRDDGUJ6080-98-86 11:37:00 Test Item Value Reference Range Interpretation Comments RBC (test code = RBC) 4.48 4.70-6.10 [facility] HospitalBlozlokDWNYZNESOW5381-10-38 11:37:00 Test Item Value Reference Range Interpretation Comments Hct (test code = Hct) 37.3 42.0-54.0 [facility] HospitalLnkylxkWACMASFNHB3716-91-64 11:37:00 Test Item Value Reference Range Interpretation Comments MCH (test code = MCH) 27.5 pg 27.0-31.0 [facility] HospitalOulkeaeOWKFYTZSKG7461-06-08 11:37:00 Test Item Value Reference Range Interpretation Comments MCV (test code = MCV) 83.3 80.0-94.0 [facility] HospitalPbljccoUFSMPWAPSQ2624-06-49 11:37:00 Test Item Value Reference Range Interpretation Comments WBC (test code = WBC) 10.5 3.7-10.4 [facility] HospitalWeqvhsfAXSMHVWQHW3825-47-06 11:37:00 Test Item Value Reference Range Interpretation Comments Eosinophils (test code = Eosinophils) 2.6 <=4.0 [facility] HospitalUwdyvwePQLKMBSFFZ8036-60-97 11:37:00 Test Item Value Reference Range Interpretation Comments Monocytes # (test code = Monocytes #) 1.2 <=0.8 [facility] HospitalAtqkuxkJCWDDIWSVN8594-28-72 11:37:00 Test Item Value Reference Range Interpretation Comments Lymphocytes # (test code = Lymphocytes 2.6 1.0-5.5 #) [facility] HospitalRijgqnqZDVGOVYQBQ4347-95-50 11:37:00 Test Item Value Reference Range Interpretation Comments Segs-Bands # (test code = Segs-Bands #) 6.3 1.5-8.1 [facility] HospitalApseanaOPOKXDXSIW8800-76-53 11:37:00 Test Item Value Reference Range Interpretation Comments Basophils (test code = Basophils) 0.7 <=1.0 [facility] HospitalXqmvxjoOJGJLDRBGS4158-93-24 11:37:00 Test Item Value Reference Range Interpretation Comments Monocytes (test code = Monocytes) 11.5 2.0-12.0 [facility] HospitalKlogklkOVTFPDHTAM8318-49-53 11:37:00 Test Item Value Reference Range Interpretation Comments Lymphocytes (test code = Lymphocytes) 25.2 20.0-40.0 [facility] HospitalBwynqqbVMJBHZUVIV6370-97-33 11:37:00 Test Item Value Reference Range Interpretation Comments Basophils # (test code = Basophils #) 0.1 <=0.2 [facility] HospitalGmdrtdfDCJRKEJXAW6300-06-95 11:37:00 Test Item Value Reference Range Interpretation Comments Eosinophils # (test code = Eosinophils 0.3 <=0.5 #) [facility] HospitalDmytlukKIIMSQJEXW2253-06-12 11:37:00 Test Item Value Reference Range Interpretation Comments Segs (test code = Segs) 60.0 45.0-75.0 [facility] CenterON TARGET LABORATORIESProtég[facility] Biomedical [facility] TRUBMWC8411-13-77 21:09:00 Test Item Value Reference Range Interpretation Comments Antibody Scrn (test Negative (09/09/14 3:09 code = Antibody Scrn) PM) [facility] CenterON TARGET LABORATORIESProtégé Biomedical [facility] [id number] 21:09:00 Test Item Value Reference Range Interpretation Comments ABO/Rh (test code = ABO/Rh) O NEG [facility]EcghfdxKNXKSMMFLGVD6024-12-14 14:46:00 Test Item Value Reference Range Interpretation Comments AGAP (test code = AGAP) 10.3 10.0-20.0 [facility] HospitalEjzddyhYBSVGZBOWBRJ9800-94-18 14:46:00 Test Item Value Reference Range Interpretation Comments Potassium Lvl (test code = Potassium 4.3 3.5-5.1 Lvl) [facility] HospitalIgbecihQNMPIMBBBYJT7345-99-63 14:46:00 Test Item Value Reference Range Interpretation Comments Chloride Lvl (test code = Chloride Lvl) 99 95-109 [facility] HospitalGdcxjrxBWDBNPSIOARQ5014-09-37 14:46:00 Test Item Value Reference Range Interpretation Comments Sodium Lvl (test code = Sodium Lvl) 133 135-145 [facility] HospitalYpkbmazQHTWAQYRAIDK8309-29-60 14:46:00 Test Item Value Reference Range Interpretation Comments Glucose Lvl (test code = Glucose Lvl) 253 70-99 [facility] HospitalKypfwcmLSGPMHCRJDOG0235-97-81 14:46:00 Test Item Value Reference Range Interpretation Comments eGFR (test code = eGFR) 72 [facility] HospitalSgcggptHRBRSVNCAQXB5956-87-05 14:46:00 Test Item Value Reference Range Interpretation Comments Creatinine Lvl (test code = Creatinine 1.2 0.5-1.4 Lvl) [facility] HospitalIadxphoNDHZVIWZTYWW8749-45-09 14:46:00 Test Item Value Reference Range Interpretation Comments Calcium Lvl (test code = Calcium Lvl) 8.4 8.5-10.5 [facility] HospitalHyogdfiKDXVXRHNTILL7719-65-41 14:46:00 Test Item Value Reference Range Interpretation Comments BUN (test code = BUN) 18 7-22 [facility] HospitalSwlnhdwWHLEGORORKUT0494-93-46 14:46:00 Test Item Value Reference Range Interpretation Comments CO2 (test code = CO2) 28 24-32 [facility] HospitalFtsqnepRGTWOGIPXO5892-58-42 14:46:00 Test Item Value Reference Range Interpretation Comments Hgb (test code = Hgb) 12.3 14.0-18.0 [facility] HospitalLtkdwbaFDYAFZTXNN7334-39-08 14:46:00 Test Item Value Reference Range Interpretation Comments RBC (test code = RBC) 4.40 4.70-6.10 [facility] HospitalLgbpjpsERVEKMCIRY4872-10-35 14:46:00 Test Item Value Reference Range Interpretation Comments MCV (test code = MCV) 82.8 80.0-94.0 [facility] HospitalPfcnsrvIDRBNVTZAL9926-22-19 14:46:00 Test Item Value Reference Range Interpretation Comments Hct (test code = Hct) 36.4 42.0-54.0 [facility] HospitalXxpebnsGVGMKXFNOU4042-41-94 14:46:00 Test Item Value Reference Range Interpretation Comments WBC (test code = WBC) 9.3 3.7-10.4 [facility] HospitalUpyjgpeNQYJKXRFYM8360-76-64 14:46:00 Test Item Value Reference Range Interpretation Comments MCHC (test code = MCHC) 33.8 32.0-36.0 [facility] HospitalIspykvbLMHYKCEBLR9384-72-53 14:46:00 Test Item Value Reference Range Interpretation Comments MCH (test code = MCH) 28.0 pg 27.0-31.0 [facility] HospitalHegwilzYYDGRIRVIH7295-37-72 14:46:00 Test Item Value Reference Range Interpretation Comments MPV (test code = MPV) 7.1 7.4-10.4 [facility] HospitalHueucuzZICZUZTDJV4023-22-48 14:46:00 Test Item Value Reference Range Interpretation Comments RDW (test code = RDW) 13.4 11.5-14.5 [facility] HospitalDgosugwHPPRVVBGZZ7960-05-15 14:46:00 Test Item Value Reference Range Interpretation Comments Platelet (test code = Platelet) 401 133-450 [facility] HospitalPvyysmnVSNMZIYWWS7128-11-12 14:46:00 Test Item Value Reference Range Interpretation Comments Lymphocytes (test code = Lymphocytes) 34.1 20.0-40.0 [facility] HospitalLmccgdnFWFKQJWKYU6391-64-05 14:46:00 Test Item Value Reference Range Interpretation Comments Monocytes (test code = Monocytes) 13.7 2.0-12.0 [facility] HospitalPgghbkmKZVPJVLLDD4769-11-35 14:46:00 Test Item Value Reference Range Interpretation Comments Segs (test code = Segs) 47.9 45.0-75.0 [facility] HospitalAoonvthTFRROREYFZ1333-05-03 14:46:00 Test Item Value Reference Range Interpretation Comments Eosinophils # (test code = Eosinophils 0.3 <=0.5 #) [facility] HospitalLgqlbkaAYQSZFPWAG5060-34-55 14:46:00 Test Item Value Reference Range Interpretation Comments Eosinophils (test code = Eosinophils) 3.4 <=4.0 [facility] HospitalAtjqrnoEQDVLYVMWA6562-81-65 14:46:00 Test Item Value Reference Range Interpretation Comments Basophils (test code = Basophils) 0.9 <=1.0 [facility] HospitalXeayaboQGKMHFIZWA7889-71-03 14:46:00 Test Item Value Reference Range Interpretation Comments Segs-Bands # (test code = Segs-Bands #) 4.5 1.5-8.1 [facility] HospitalCacrbtjIETSWFBGSZ1454-66-58 14:46:00 Test Item Value Reference Range Interpretation Comments Lymphocytes # (test code = Lymphocytes 3.2 1.0-5.5 #) [facility] HospitalHkajaybPRWXIABNBJ9591-91-77 14:46:00 Test Item Value Reference Range Interpretation Comments Monocytes # (test code = Monocytes #) 1.3 <=0.8 [facility] HospitalLwpbnasGMSABFYPMC5494-72-51 14:46:00 Test Item Value Reference Range Interpretation Comments Basophils # (test code = Basophils #) 0.1 <=0.2 [facility] HospitalYrmgvckGMONIB7533-97-40 14:46:00 Test Item Value Reference Range Interpretation Comments Trig (test code = Trig) 204 [facility] HospitalTqpnyklSENCYY9532-73-09 14:46:00 Test Item Value Reference Range Interpretation Comments Chol (test code = Chol) 182 [facility] HospitalYaieaiuZOTIMS1870-26-27 14:46:00 Test Item Value Reference Range Interpretation Comments VLDL (test code = VLDL) 41 [facility] HospitalRghcswzUXBDAT1711-21-20 14:46:00 Test Item Value Reference Range Interpretation Comments LDL (Calculated) (test code = LDL 103 (Calculated)) [facility]hHHBUNH1270-97-57 14:46:00 Test Item Value Reference Range Interpretation Comments HDL (test code = HDL) 38 [facility] QlohwzxIYVVYJ1846-34-67 14:46:00 Test Item Value Reference Range Interpretation Comments CHD Risk (test code = CHD Risk) 4.79 4.00-7.30 [facility]SPE[facility] CFPKYOEST0651-51-25 14:40:00 Test Item Value Reference Range Interpretation Comments Hgb A1C (test code = Hgb A1C) 10.1 [facility] AND [id number] 06:04:00 Test Item Value Reference Range Interpretation Comments Micro? (test code = Performed *NA*(09/09/14 Micro?) 12:04 AM) [facility] AND [id number] 06:04:00 Test Item Value Reference Range Interpretation Comments UA Urobilinogen (test code = UA <=1.0 mg/dL 0.1-1.0 Urobilinogen) [facility] AND [id number] 06:04:00 Test Item Value Reference Range Interpretation Comments UA Hyal Cast (test code = UA Hyal Cast) 3 <=2 [facility] AND [id number] 06:04:00 Test Item Value Reference Range Interpretation Comments UA Glucose (test code = UA >=1000 mg/dL Glucose) [facility] AND [id number] 06:04:00 Test Item Value Reference Range Interpretation Comments UA Protein (test code = UA Protein) 100 mg/dL [facility] AND [id number] 06:04:00 Test Item Value Reference Range Interpretation Comments UA RBC (test code = UA RBC) 1 <=2 [facility] [id number] 06:04:00 Test Item Value Reference Range Interpretation Comments UA WBC (test code = UA WBC) no gt <=5 [facility]annIN[facility] [id number] 06:04:00 Test Item Value Reference Range Interpretation Comments UA Leuk Est (test Negative (09/09/14 12:04 code = UA Leuk Est) AM) [facility] CenterannURINE AND [id number] 06:04:00 Test Item Value Reference Range Interpretation Comments UA Nitrite (test code Negative (09/09/14 12:04 = UA Nitrite) AM) [facility] AND [id number] 06:04:00 Test Item Value Reference Range Interpretation Comments UA Mucus (test code = UA Mucus) Few /LPF [facility] AND [id number] 06:04:00 Test Item Value Reference Range Interpretation Comments UA Blood (test code = Negative (09/09/14 12:04 UA Blood) AM) [facility] AND [id number] 06:04:00 Test Item Value Reference Range Interpretation Comments UA Bili (test code = Negative *NA*(09/09/14 UA Bili) 12:04 AM) [facility] AND [id number] 06:04:00 Test Item Value Reference Range Interpretation Comments UA Ketones (test code = UA Negative mg/dL Ketones) [facility] AND [id number] 06:04:00 Test Item Value Reference Range Interpretation Comments UA Color (test code = Yellow *NA*(09/09/14 UA Color) 12:04 AM) [facility] AND [id number] 06:04:00 Test Item Value Reference Range Interpretation Comments UA pH (test code = UA pH) 6.0 5.0-8.0 [facility] AND [id number] 06:04:00 Test Item Value Reference Range Interpretation Comments UA Spec Grav (test code = UA Spec Grav) 1.021 [facility] AND [id number] 06:04:00 Test Item Value Reference Range Interpretation Comments UA Turbidity (test code = Clear (09/09/14 12:04 UA Turbidity) AM) [facility]PROZZMMMYT4959-39-17 04:42:00 Test Item Value Reference Range Interpretation Comments Segs (test code = Segs) 65.6 45.0-75.0 [facility] HospitalOrbwzreCQLSKIVTYS2536-68-16 04:42:00 Test Item Value Reference Range Interpretation Comments Lymphocytes (test code = Lymphocytes) 19.4 20.0-40.0 [facility]NivicqzYADXSWRKQO2288-55-94 04:42:00 Test Item Value Reference Range Interpretation Comments Eosinophils (test code = Eosinophils) 1.1 <=4.0 [facility] HospitalGniwjsrTBYSNNYNQA8453-27-80 04:42:00 Test Item Value Reference Range Interpretation Comments Segs-Bands # (test code = Segs-Bands #) 8.0 1.5-8.1 [facility] HospitalCykakclOLYNFJRIYW3992-19-30 04:42:00 Test Item Value Reference Range Interpretation Comments Basophils (test code = Basophils) 0.6 <=1.0 [facility] HospitalKgywegcLEMNEGODHI2411-18-03 04:42:00 Test Item Value Reference Range Interpretation Comments Monocytes (test code = Monocytes) 13.3 2.0-12.0 [facility] HospitalCliauiyDKYOCATALZ8984-87-55 04:42:00 Test Item Value Reference Range Interpretation Comments Monocytes # (test code = Monocytes #) 1.6 <=0.8 [facility] HospitalSqzjusxYZCSDVJVJP9983-77-49 04:42:00 Test Item Value Reference Range Interpretation Comments Lymphocytes # (test code = Lymphocytes 2.4 1.0-5.5 #) [facility] HospitalOjjxtryBQEECFZQTB4795-06-47 04:42:00 Test Item Value Reference Range Interpretation Comments Eosinophils # (test code = Eosinophils 0.1 <=0.5 #) [facility] HospitalDyimlxwKPHSXTWKTW9824-61-08 04:42:00 Test Item Value Reference Range Interpretation Comments Basophils # (test code = Basophils #) 0.1 <=0.2 [facility] HospitalYvxcqlyHRNWKUZJRO9917-35-69 04:42:00 Test Item Value Reference Range Interpretation Comments PT (test code = PT) 13.1 s 12.0-14.7 [facility] HospitalBhpczliMCXUNXBVNP3141-62-56 04:42:00 Test Item Value Reference Range Interpretation Comments PTT (test code = PTT) 39.7 s 22.9-35.8 [facility] HospitalFkqxjvdXZIECUXMFW5373-76-32 04:42:00 Test Item Value Reference Range Interpretation Comments INR (test code = INR) 0.99 0.85-1.17 [facility] HospitalYtuupkyBYCPBNLBQP5890-20-92 04:42:00 Test Item Value Reference Range Interpretation Comments RBC (test code = RBC) 4.76 4.70-6.10 [facility] HospitalWpzbxrfFBWBRQRENK0947-25-01 04:42:00 Test Item Value Reference Range Interpretation Comments WBC (test code = WBC) 12.2 3.7-10.4 [facility] HospitalZbdgxakGJJTRVPABM6623-35-49 04:42:00 Test Item Value Reference Range Interpretation Comments Hgb (test code = Hgb) 13.0 14.0-18.0 [facility] HospitalQqzxuenYLYIGOKPIF6066-48-12 04:42:00 Test Item Value Reference Range Interpretation Comments MCV (test code = MCV) 83.1 80.0-94.0 [facility] HospitalIwophndNIIYKNETEY3662-68-37 04:42:00 Test Item Value Reference Range Interpretation Comments Hct (test code = Hct) 39.6 42.0-54.0 [facility] HospitalBvfdgsoFNCDRXDFJU7945-04-49 04:42:00 Test Item Value Reference Range Interpretation Comments MCHC (test code = MCHC) 33.0 32.0-36.0 [facility] HospitalLbxyivsJQVIPWMVLK4657-33-20 04:42:00 Test Item Value Reference Range Interpretation Comments MCH (test code = MCH) 27.4 pg 27.0-31.0 [facility] HospitalOniowyjMIBMPLHMHB7210-82-05 04:42:00 Test Item Value Reference Range Interpretation Comments Platelet (test code = Platelet) 430 133-450 [facility] HospitalXuiaycjZNXNUKDRLB7525-25-32 04:42:00 Test Item Value Reference Range Interpretation Comments RDW (test code = RDW) 13.5 11.5-14.5 [facility] HospitalFrqvudsKTQCOWZVRZ9991-88-29 04:42:00 Test Item Value Reference Range Interpretation Comments MPV (test code = MPV) 7.5 7.4-10.4 [facility]2015-02-04 12:44:00 Test Item Value Reference Range Interpretation Comments BUN (test code = BUN) 22 7-22 [facility]2015-02-04 12:44:00 Test Item Value Reference Range Interpretation Comments Creatinine Lvl (test code = Creatinine 1.1 0.5-1.4 Lvl) [facility]2015-02-04 12:44:00 Test Item Value Reference Range Interpretation Comments eGFR (test code = eGFR) 80 [facility] GLUCOSE JFCNSNX6752-22-43 16:26:00 Test Item Value Reference Range Interpretation Comments Gluc POC Lifscn (test code = Gluc POC 220 70-99 H Lifscn) [facility] GLUCOSE GYXOFKY1922-82-57 16:26:00 Test Item Value Reference Range Interpretation Comments Comment1 (test code = Comment1) Notify RN/MD [facility] GLUCOSE IPVPVJX6736-55-15 10:58:00 Test Item Value Reference Range Interpretation Comments Comment1 (test code = Comment1) Notify RN/MD [facility] GLUCOSE AMUBFMB6491-59-69 10:58:00 Test Item Value Reference Range Interpretation Comments Gluc POC Lifscn (test code = Gluc POC 293 70-99 H Lifscn) [facility]DosxbkqROAQTNYFV2427-94-97 10:35:30 Test Item Value Reference Range Interpretation Comments Bili Direct (test code = Bili Direct) 0.1 <=0.3 N [facility] HospitalLllnmkmJUFYDMDSV8020-39-83 10:35:30 Test Item Value Reference Range Interpretation Comments Lactic Acid Lvl (test code = Lactic 0.9 0.5-2.2 N Acid Lvl) [facility] HospitalVnscbcxZVBKZSCRI8279-81-57 10:35:30 Test Item Value Reference Range Interpretation Comments Globulin (test code = Globulin) 3.5 2.0-4.0 N [facility] HospitalBfauxwwJVREPRKQK4348-48-39 10:35:30 Test Item Value Reference Range Interpretation Comments A/G Ratio (test code = A/G Ratio) 0.7 0.7-1.6 N [facility] HospitalGznqwdgZDRNPGOSY3538-24-58 10:35:30 Test Item Value Reference Range Interpretation Comments Albumin Lvl (test code = Albumin Lvl) 2.3 3.5-5.0 L [facility] HospitalBxpmsbdGETTZWPLF4558-31-85 10:35:30 Test Item Value Reference Range Interpretation Comments Total Protein (test code = Total 5.8 6.4-8.4 L Protein) [facility] HospitalLgcpdwqEZCKTKZKA8714-73-98 10:35:30 Test Item Value Reference Range Interpretation Comments B/C Ratio (test code = B/C Ratio) 18 6-25 N [facility] HospitalVzgytyrMHVMJRBDU0869-32-04 10:35:30 Test Item Value Reference Range Interpretation Comments AGAP (test code = AGAP) 14.2 10.0-20.0 N [facility] HospitalHgmsxqjBSLKEBCOA1002-98-22 10:35:30 Test Item Value Reference Range Interpretation Comments CO2 (test code = CO2) 26 24-32 N [facility] HospitalOjsmqkfMFTXNNKEF2867-85-53 10:35:30 Test Item Value Reference Range Interpretation Comments Glucose Lvl (test code = Glucose Lvl) 284 70-99 H [facility] HospitalNsxovumPSOHCOYYS9179-10-18 10:35:30 Test Item Value Reference Range Interpretation Comments BUN (test code = BUN) 20 7-22 N [facility] HospitalOgyuwxlRBJBSEUUV1705-23-71 10:35:30 Test Item Value Reference Range Interpretation Comments Bili Total (test code = Bili Total) 0.6 0.2-1.3 N [facility] HospitalCbbgqpaJNJTRNVSQ0739-15-86 10:35:30 Test Item Value Reference Range Interpretation Comments AST (test code = AST) 28 <=37 N [facility] HospitalJixgyylDRIENWOKS7886-26-56 10:35:30 Test Item Value Reference Range Interpretation Comments ALT (test code = ALT) 65 <=65 N [facility] HospitalZtdkxfsXFPWNJGQW2139-86-06 10:35:30 Test Item Value Reference Range Interpretation Comments Alk Phos (test code = Alk Phos) 226 39-136 H [facility] HospitalIbaxvckYARTYMGYQ8083-79-71 10:35:30 Test Item Value Reference Range Interpretation Comments eGFR (test code = eGFR) 80 [facility] HospitalVwojcatDTNKRUOPM6814-76-47 10:35:30 Test Item Value Reference Range Interpretation Comments Calcium Lvl (test code = Calcium Lvl) 8.5 8.5-10.5 N [facility] HospitalStufroeSYTEWBVSC6174-08-29 10:35:30 Test Item Value Reference Range Interpretation Comments Sodium Lvl (test code = Sodium Lvl) 134 135-145 L [facility] HospitalVizfthfLYSNXOOJK2827-17-97 10:35:30 Test Item Value Reference Range Interpretation Comments Creatinine Lvl (test code = Creatinine 1.1 0.5-1.4 N Lvl) [facility] HospitalGuzvomkRIGRZSQRG5214-96-67 10:35:30 Test Item Value Reference Range Interpretation Comments Chloride Lvl (test code = Chloride Lvl) 98 95-109 N [facility] HospitalVfynhlwQRWVTCFMF0989-18-23 10:35:30 Test Item Value Reference Range Interpretation Comments Potassium Lvl (test code = Potassium 4.2 3.5-5.1 N Lvl) [facility] HospitalEdpfnheZUATBAQUJV4449-69-22 10:35:30 Test Item Value Reference Range Interpretation Comments Segs-Bands # (test code = Segs-Bands #) 6.4 1.5-8.1 N [facility] HospitalOjhkcszDSQDMCSSRY4110-88-48 10:35:30 Test Item Value Reference Range Interpretation Comments Basophils # (test code = Basophils #) 0.1 <=0.2 N [facility] HospitalGcusbquSVJOFQTYED7511-07-31 10:35:30 Test Item Value Reference Range Interpretation Comments Eosinophils # (test code = Eosinophils 0.3 <=0.5 N #) [facility] HospitalVkjbqhxPLQWSBZZDV5941-59-48 10:35:30 Test Item Value Reference Range Interpretation Comments Monocytes # (test code = Monocytes #) 1.4 <=0.8 H [facility] HospitalTwuhmczFWBLQOUBZI0408-60-27 10:35:30 Test Item Value Reference Range Interpretation Comments Lymphocytes # (test code = Lymphocytes 3.2 1.0-5.5 N #) [facility] HospitalBpnqeznEWFDSTVEES8540-05-30 10:35:30 Test Item Value Reference Range Interpretation Comments Lymphocytes (test code = Lymphocytes) 28.2 20.0-40.0 N [facility] HospitalKoilihmPVQMAUTJTE3088-38-30 10:35:30 Test Item Value Reference Range Interpretation Comments Segs (test code = Segs) 55.9 45.0-75.0 N [facility] HospitalGeowylqDKYLNJUZOU7520-28-85 10:35:30 Test Item Value Reference Range Interpretation Comments Basophils (test code = Basophils) 0.7 <=1.0 N [facility] HospitalPnauzjfFIMESHZPMX3765-95-85 10:35:30 Test Item Value Reference Range Interpretation Comments Eosinophils (test code = Eosinophils) 2.8 <=4.0 N [facility] HospitalJcbntspIHMDUKJYUU9629-31-89 10:35:30 Test Item Value Reference Range Interpretation Comments Monocytes (test code = Monocytes) 12.4 2.0-12.0 H [facility] HospitalAwbvxzrUWTXLFRRFO3891-25-12 10:35:30 Test Item Value Reference Range Interpretation Comments Sed Rate (test code = Sed Rate) 33 <=15 H [facility] HospitalNgdudseAGAOQEDUXY7216-78-42 10:35:30 Test Item Value Reference Range Interpretation Comments Fibrinogen Lvl (test code = Fibrinogen 411 230-510 N Lvl) [facility] HospitalSyzukpvOJAAIWCCPW5642-31-50 10:35:30 Test Item Value Reference Range Interpretation Comments MCV (test code = MCV) 83.2 80.0-94.0 N [facility] HospitalLdhlmmwRRIQNSXGTB2273-83-82 10:35:30 Test Item Value Reference Range Interpretation Comments Platelet (test code = Platelet) 283 133-450 N [facility] HospitalZaotefyNJAALMZEMG8892-36-37 10:35:30 Test Item Value Reference Range Interpretation Comments RDW (test code = RDW) 13.3 11.5-14.5 N [facility] HospitalVetpxwlYIEPTJRBDO1597-66-33 10:35:30 Test Item Value Reference Range Interpretation Comments MCHC (test code = MCHC) 32.6 32.0-36.0 N [facility] HospitalUkrigknDRFCTPWWJD0129-48-48 10:35:30 Test Item Value Reference Range Interpretation Comments MCH (test code = MCH) 27.1 pg 27.0-31.0 N [facility] HospitalGaeszcyWFZDGQKEQP7439-67-64 10:35:30 Test Item Value Reference Range Interpretation Comments MPV (test code = MPV) 8.1 7.4-10.4 N [facility] HospitalFdsqogdRJMWSFGRXA4370-31-98 10:35:30 Test Item Value Reference Range Interpretation Comments WBC (test code = WBC) 11.4 3.7-10.4 H [facility] HospitalFvzofujUDPMFCIBFC1593-33-45 10:35:30 Test Item Value Reference Range Interpretation Comments RBC (test code = RBC) 4.48 4.70-6.10 L [facility] HospitalFbrolnhZUDEIMNZXF6297-91-35 10:35:30 Test Item Value Reference Range Interpretation Comments Hct (test code = Hct) 37.3 42.0-54.0 L [facility] HospitalBvullgsRDZSYFXFMI1033-68-02 10:35:30 Test Item Value Reference Range Interpretation Comments Hgb (test code = Hgb) 12.1 14.0-18.0 [facility]AnlrjvqBNSROTUDOJ9071-35-52 10:35:30 Test Item Value Reference Range Interpretation Comments CRP, High Sensitivity (test code = CRP, 86.0 High Sensitivity) [facility] GLUCOSE TYIPURH6621-31-09 08:10:00 Test Item Value Reference Range Interpretation Comments Comment1 (test code = Comment1) Notify RN/MD [facility] GLUCOSE UDNJOPU0134-83-75 08:10:00 Test Item Value Reference Range Interpretation Comments Gluc POC Lifscn (test code = Gluc POC 343 70-99 H Lifscn) [facility] HospitalGgpjnldUVKMKVGXG9320-40-18 11:40:00 Test Item Value Reference Range Interpretation Comments Lactic Acid Lvl (test code = Lactic 1.0 0.5-2.2 N Acid Lvl) [facility] HospitalSgbxvtoCHAWYDXSU5964-12-55 11:40:00 Test Item Value Reference Range Interpretation Comments Albumin Lvl (test code = Albumin Lvl) 2.4 3.5-5.0 L [facility] HospitalWsmnzpeNJDZUCYFH4370-73-88 11:40:00 Test Item Value Reference Range Interpretation Comments Bili Direct (test code = Bili Direct) 0.1 <=0.3 N [facility] HospitalRlvsdjaKBXPVGAII1262-01-13 11:40:00 Test Item Value Reference Range Interpretation Comments AST (test code = AST) 23 <=37 N [facility] HospitalWxnrsfcMDETKIKHL9487-88-14 11:40:00 Test Item Value Reference Range Interpretation Comments ALT (test code = ALT) 73 <=65 H [facility] HospitalQewonyvNQXOJTZUG3638-50-47 11:40:00 Test Item Value Reference Range Interpretation Comments Alk Phos (test code = Alk Phos) 219 39-136 H [facility] HospitalFbwrelrLOFMQHKOK6049-49-56 11:40:00 Test Item Value Reference Range Interpretation Comments Total Protein (test code = Total 5.2 6.4-8.4 L Protein) [facility] HospitalMyqgarfGXGRULMGB0645-26-43 11:40:00 Test Item Value Reference Range Interpretation Comments Bili Total (test code = Bili Total) 0.5 0.2-1.3 N [facility] HospitalRkznyjqDXZYRUPEZ3503-40-82 11:40:00 Test Item Value Reference Range Interpretation Comments A/G Ratio (test code = A/G Ratio) 0.9 0.7-1.6 N [facility] HospitalNrgqexeMVMZMYAMB9779-84-67 11:40:00 Test Item Value Reference Range Interpretation Comments Bili Indirect (test code = Bili 0.4 <=1.0 N Indirect) [facility] HospitalGkqbltxIRIODXSRS0751-68-48 11:40:00 Test Item Value Reference Range Interpretation Comments Globulin (test code = Globulin) 2.8 2.0-4.0 N [facility] HospitalIxiwtosVJRBMWNNO5349-47-10 11:40:00 Test Item Value Reference Range Interpretation Comments eGFR (test code = eGFR) 80 [facility] HospitalSwgpxiyFFCRUIWZX6770-22-96 11:40:00 Test Item Value Reference Range Interpretation Comments Calcium Lvl (test code = Calcium Lvl) 8.2 8.5-10.5 L [facility] HospitalMwndddaGQJJELJTV6428-39-01 11:40:00 Test Item Value Reference Range Interpretation Comments Sodium Lvl (test code = Sodium Lvl) 138 135-145 N [facility] HospitalMvljtbkNHBEVUJPW0937-14-42 11:40:00 Test Item Value Reference Range Interpretation Comments Chloride Lvl (test code = Chloride Lvl) 104 95-109 N [facility] HospitalVbhcnymXAZBWLDEZ8040-84-57 11:40:00 Test Item Value Reference Range Interpretation Comments Potassium Lvl (test code = Potassium 4.4 3.5-5.1 N Lvl) [facility] HospitalAvdyeniWFHRNNPRE3376-47-23 11:40:00 Test Item Value Reference Range Interpretation Comments CO2 (test code = CO2) 26 24-32 N [facility] HospitalDxqyybnDNIKKNTKC9385-61-21 11:40:00 Test Item Value Reference Range Interpretation Comments Creatinine Lvl (test code = Creatinine 1.1 0.5-1.4 N Lvl) [facility] HospitalAdwfwmiDMGWLSNAB3908-39-09 11:40:00 Test Item Value Reference Range Interpretation Comments Glucose Lvl (test code = Glucose Lvl) 183 70-99 H [facility] HospitalBsnstsnYWYOOULYX0305-41-13 11:40:00 Test Item Value Reference Range Interpretation Comments BUN (test code = BUN) 21 7-22 N [facility] HospitalOggobvrTOSMGFGBT3076-98-54 11:40:00 Test Item Value Reference Range Interpretation Comments AGAP (test code = AGAP) 12.4 10.0-20.0 N [facility] HospitalLkjzpzhLOMYUWOKCH1114-97-33 11:40:00 Test Item Value Reference Range Interpretation Comments Hct (test code = Hct) 38.6 42.0-54.0 L [facility] HospitalPoinisxENLTVPZCSB5566-30-96 11:40:00 Test Item Value Reference Range Interpretation Comments MCV (test code = MCV) 84.6 80.0-94.0 N [facility] HospitalRbrmjlwIXOOFCZIKY8440-21-51 11:40:00 Test Item Value Reference Range Interpretation Comments RBC (test code = RBC) 4.57 4.70-6.10 L [facility] HospitalHzrbysrCBXKAAQVKS3107-39-05 11:40:00 Test Item Value Reference Range Interpretation Comments Hgb (test code = Hgb) 12.4 14.0-18.0 L [facility] HospitalYasyhkcGIKFCYBLIX0849-52-60 11:40:00 Test Item Value Reference Range Interpretation Comments MCH (test code = MCH) 27.2 pg 27.0-31.0 N [facility] HospitalAuhlbibXECNEFKGVG8901-48-04 11:40:00 Test Item Value Reference Range Interpretation Comments MCHC (test code = MCHC) 32.2 32.0-36.0 N [facility] HospitalKwfhbrdRXOZQOQFDK7940-69-67 11:40:00 Test Item Value Reference Range Interpretation Comments WBC (test code = WBC) 10.8 3.7-10.4 H [facility] HospitalKdjxxreVQSKSLSRFP4360-01-57 11:40:00 Test Item Value Reference Range Interpretation Comments MPV (test code = MPV) 7.6 7.4-10.4 N [facility] HospitalRpidqvvMDMNNBDJAT1300-90-79 11:40:00 Test Item Value Reference Range Interpretation Comments RDW (test code = RDW) 13.4 11.5-14.5 N [facility] HospitalFcksuxvEUTVPFIGRY4767-60-36 11:40:00 Test Item Value Reference Range Interpretation Comments Platelet (test code = Platelet) 246 133-450 N [facility] HospitalOrilntwJYFAJRPSTZ5346-28-46 11:40:00 Test Item Value Reference Range Interpretation Comments Sed Rate (test code = Sed Rate) 24 <=15 H [facility] HospitalBhgqvsrDNBWWABTWD5309-62-12 11:40:00 Test Item Value Reference Range Interpretation Comments Fibrinogen Lvl (test code = Fibrinogen 503 230-510 N Lvl) [facility] HospitalWsmkpacGNBSEEEPWS9455-08-50 11:40:00 Test Item Value Reference Range Interpretation Comments Basophils # (test code = Basophils #) 0.1 <=0.2 N [facility] HospitalIemvmkqYQAPUKWVMZ1536-06-29 11:40:00 Test Item Value Reference Range Interpretation Comments Eosinophils # (test code = Eosinophils 0.3 <=0.5 N #) [facility] HospitalJyssvryTMTMWCSMMF8984-95-04 11:40:00 Test Item Value Reference Range Interpretation Comments Segs-Bands # (test code = Segs-Bands #) 6.4 1.5-8.1 N [facility] HospitalVnznvwfMRAUQUEAZR2625-76-87 11:40:00 Test Item Value Reference Range Interpretation Comments Lymphocytes # (test code = Lymphocytes 2.8 1.0-5.5 N #) [facility] HospitalPspzlfeAWEAFYIMXY2265-89-05 11:40:00 Test Item Value Reference Range Interpretation Comments Basophils (test code = Basophils) 0.6 <=1.0 N [facility] HospitalHfjntdeDLYBUBJITE2316-01-81 11:40:00 Test Item Value Reference Range Interpretation Comments Monocytes (test code = Monocytes) 11.1 2.0-12.0 N [facility] HospitalPrqvlfgSRTCMGLDFC9243-54-89 11:40:00 Test Item Value Reference Range Interpretation Comments Eosinophils (test code = Eosinophils) 2.6 <=4.0 N [facility] HospitalRuohsjeTVBQCGMYGW3313-44-96 11:40:00 Test Item Value Reference Range Interpretation Comments Monocytes # (test code = Monocytes #) 1.2 <=0.8 H [facility] HospitalJbxcfclJZOFVXTQGB9483-46-54 11:40:00 Test Item Value Reference Range Interpretation Comments Lymphocytes (test code = Lymphocytes) 26.4 20.0-40.0 N [facility] HospitalEpfbiekWKFWXFTDKC2877-18-88 11:40:00 Test Item Value Reference Range Interpretation Comments Segs (test code = Segs) 59.3 45.0-75.0 N [facility] HospitalBczpczyQTMXZICPYR6768-47-50 11:40:00 Test Item Value Reference Range Interpretation Comments Plt Morph (test code = Normal (12/20/2012 N Plt Morph) 06:40:00) [facility] HospitalEmidmzmYEBZLNNQAW5954-13-78 11:40:00 Test Item Value Reference Range Interpretation Comments RBC Morph (test code = Normal (12/20/2012 N RBC Morph) 06:40:00) [facility]VofjnniNDMMIBJXUP2080-04-33 11:40:00 Test Item Value Reference Range Interpretation Comments CRP, High Sensitivity (test code = CRP, 18.5 High Sensitivity) [facility] HospitalHukrxmyJWCRDXMCK2227-43-24 09:50:00 Test Item Value Reference Range Interpretation Comments AGAP (test code = AGAP) 15.4 10.0-20.0 N [facility] HospitalQlinkvlCOQZUUJYU5891-34-43 09:50:00 Test Item Value Reference Range Interpretation Comments eGFR (test code = eGFR) 90 [facility] HospitalSvsynfiQVDDBNOHW6633-95-89 09:50:00 Test Item Value Reference Range Interpretation Comments Sodium Lvl (test code = Sodium Lvl) 140 135-145 N [facility] HospitalDsefurhPGFLJBMWU1655-39-93 09:50:00 Test Item Value Reference Range Interpretation Comments Potassium Lvl (test code = Potassium 4.4 3.5-5.1 N Lvl) [facility] HospitalTybtqnzHJPHBRLAN0503-50-23 09:50:00 Test Item Value Reference Range Interpretation Comments Chloride Lvl (test code = Chloride Lvl) 102 95-109 N [facility] HospitalXjuqrvfRJQNMXMDM3699-60-04 09:50:00 Test Item Value Reference Range Interpretation Comments Glucose Lvl (test code = Glucose Lvl) 234 70-99 H [facility] HospitalNisiyarMYHKJTSHM6989-20-54 09:50:00 Test Item Value Reference Range Interpretation Comments BUN (test code = BUN) 19 7-22 N [facility] HospitalMpuuqlzLLDQJGZNZ7053-91-35 09:50:00 Test Item Value Reference Range Interpretation Comments Creatinine Lvl (test code = Creatinine 1.0 0.5-1.4 N Lvl) [facility] HospitalYwrsvhzYCQNGAMIS3385-53-10 09:50:00 Test Item Value Reference Range Interpretation Comments CO2 (test code = CO2) 27 24-32 N [facility] HospitalIdzuoijSGOXGZSME9773-77-85 09:50:00 Test Item Value Reference Range Interpretation Comments Calcium Lvl (test code = Calcium Lvl) 8.6 8.5-10.5 N [facility] HospitalTuedewwERHOIUTWQ3879-09-14 09:50:00 Test Item Value Reference Range Interpretation Comments Bili Indirect (test code = Bili 0.3 <=1.0 N Indirect) [facility] HospitalZagwmwuWVIGUJGWX9776-79-17 09:50:00 Test Item Value Reference Range Interpretation Comments Bili Total (test code = Bili Total) 0.4 0.2-1.3 N [facility] HospitalDwbvfllXGRYTGWXN6016-68-38 09:50:00 Test Item Value Reference Range Interpretation Comments Albumin Lvl (test code = Albumin Lvl) 2.8 3.5-5.0 L [facility] HospitalQeorkbgOBODEBLOI0642-24-35 09:50:00 Test Item Value Reference Range Interpretation Comments Bili Direct (test code = Bili Direct) 0.1 <=0.3 N [facility] HospitalTqoodpmSKWOLWCOH4707-92-52 09:50:00 Test Item Value Reference Range Interpretation Comments ALT (test code = ALT) 100 <=65 H [facility] HospitalZlnbfhaOALJZQCHY1291-06-11 09:50:00 Test Item Value Reference Range Interpretation Comments A/G Ratio (test code = A/G Ratio) 0.9 0.7-1.6 N [facility] HospitalSyogegjYHZBOTBIZ1722-43-08 09:50:00 Test Item Value Reference Range Interpretation Comments AST (test code = AST) 50 <=37 H [facility] HospitalNlvcukoXFASBMJNL0361-25-16 09:50:00 Test Item Value Reference Range Interpretation Comments Alk Phos (test code = Alk Phos) 266 39-136 H [facility] HospitalErvtlzmHLXQQMSKM6776-57-86 09:50:00 Test Item Value Reference Range Interpretation Comments Total Protein (test code = Total 5.8 6.4-8.4 L Protein) [facility]jfptegWSXPMEONC7380-62-66 09:50:00 Test Item Value Reference Range Interpretation Comments Globulin (test code = Globulin) 3.0 2.0-4.0 N [facility]ExulhwbCFXIAPPVRJ5621-37-67 09:50:00 Test Item Value Reference Range Interpretation Comments Hct (test code = Hct) 39.7 42.0-54.0 L [facility] HospitalPazlmmbEMUHQZYNHO8206-39-45 09:50:00 Test Item Value Reference Range Interpretation Comments RDW (test code = RDW) 13.7 11.5-14.5 N [facility] HospitalMlhmuogYBGAERRTKH2851-27-99 09:50:00 Test Item Value Reference Range Interpretation Comments Platelet (test code = Platelet) 344 133-450 N [facility] HospitalScccxdpDRJJPTROTN4535-42-09 09:50:00 Test Item Value Reference Range Interpretation Comments MPV (test code = MPV) 7.7 7.4-10.4 N [facility] HospitalGtooxhzUTLAHTBGSA8067-22-12 09:50:00 Test Item Value Reference Range Interpretation Comments MCHC (test code = MCHC) 32.8 32.0-36.0 N [facility] HospitalXrhtdylAQPTCBTNZM7275-54-03 09:50:00 Test Item Value Reference Range Interpretation Comments MCV (test code = MCV) 85.2 80.0-94.0 N [facility] HospitalPciwbpcCLHIMHRNQU7185-89-85 09:50:00 Test Item Value Reference Range Interpretation Comments MCH (test code = MCH) 27.9 pg 27.0-31.0 N [facility] HospitalZetylsqTVOIIFCSZS0339-83-90 09:50:00 Test Item Value Reference Range Interpretation Comments WBC (test code = WBC) 11.3 3.7-10.4 H [facility] HospitalNvdldmrZFAWENAOLL0530-69-00 09:50:00 Test Item Value Reference Range Interpretation Comments Hgb (test code = Hgb) 13.0 14.0-18.0 L [facility] HospitalCsiwppxHFCHEMFJWW3190-60-39 09:50:00 Test Item Value Reference Range Interpretation Comments RBC (test code = RBC) 4.67 4.70-6.10 L [facility] HospitalHprhludPJDYPWSYRK2333-98-53 09:50:00 Test Item Value Reference Range Interpretation Comments Sed Rate (test code = Sed Rate) 35 <=15 H [facility] HospitalWgtnydwDCQSEYCDZI4768-92-53 09:50:00 Test Item Value Reference Range Interpretation Comments Basophils # (test code = Basophils #) 0.1 <=0.2 N [facility] HospitalHdtbguzMVDUEBFTAG9952-22-33 09:50:00 Test Item Value Reference Range Interpretation Comments Eosinophils # (test code = Eosinophils 0.1 <=0.5 N #) [facility] HospitalShuomlqHOHMIIDQSJ7511-46-39 09:50:00 Test Item Value Reference Range Interpretation Comments Monocytes # (test code = Monocytes #) 1.0 <=0.8 H [facility] HospitalGxnzbywRHIQSLTFYL1642-19-92 09:50:00 Test Item Value Reference Range Interpretation Comments Lymphocytes # (test code = Lymphocytes 1.9 1.0-5.5 N #) [facility] HospitalQrcvnvxICCLCETUQO6394-11-15 09:50:00 Test Item Value Reference Range Interpretation Comments Segs-Bands # (test code = Segs-Bands #) 8.2 1.5-8.1 H [facility] HospitalTfsehbeJXWOOIKUNV1719-93-12 09:50:00 Test Item Value Reference Range Interpretation Comments Basophils (test code = Basophils) 0.7 <=1.0 N [facility] HospitalKgxxlubOKRRDUXSBH0851-75-44 09:50:00 Test Item Value Reference Range Interpretation Comments Eosinophils (test code = Eosinophils) 1.1 <=4.0 N [facility] HospitalBexkxtmSVVBGVVWKY7986-75-58 09:50:00 Test Item Value Reference Range Interpretation Comments Monocytes (test code = Monocytes) 8.6 2.0-12.0 N [facility] HospitalXbqhhiqLHJDAADAYV4417-68-64 09:50:00 Test Item Value Reference Range Interpretation Comments Segs (test code = Segs) 73.0 45.0-75.0 N [facility] HospitalBunrxttVDZYJFFODT8322-81-92 09:50:00 Test Item Value Reference Range Interpretation Comments Plt Morph (test code = Normal (12/19/2012 N Plt Morph) 04:50:00) [facility] HospitalUoepvrhSRLUSLNSHZ8990-07-52 09:50:00 Test Item Value Reference Range Interpretation Comments RBC Morph (test code = Normal (12/19/2012 N RBC Morph) 04:50:00) [facility] HospitalBgkdvboFIKMYDUOKD3997-74-63 09:50:00 Test Item Value Reference Range Interpretation Comments Lymphocytes (test code = Lymphocytes) 16.6 20.0-40.0 L [facility]SyfkbotVHPQQCZFKN3082-71-07 09:50:00 Test Item Value Reference Range Interpretation Comments CRP, High Sensitivity (test code = CRP, 11.7 High Sensitivity) [facility] HospitalTbkbpjhPKFROJVMJ7624-09-42 10:50:00 Test Item Value Reference Range Interpretation Comments Bili Indirect (test code = Bili 0.4 <=1.0 N Indirect) [facility] HospitalTvkwcgmEXZZHSFVN7554-04-34 14:37:00 Test Item Value Reference Range Interpretation Comments Irwino Tr TND (test code = Vanco Tr TND) 1000 [facility] HospitalMqzllwiCUKSRCLLN2305-78-74 14:37:00 Test Item Value Reference Range Interpretation Comments Vanco Tr (test code = Vanco Tr) 11.2 [facility] HospitalXotjppkVOCJURQFC3077-68-48 09:00:27 Test Item Value Reference Range Interpretation Comments Lactic Acid Lvl (test code = Lactic 0.7 0.5-2.2 N Acid Lvl) [facility] HospitalShhsqsuNJSLYYEXH2863-01-10 09:53:00 Test Item Value Reference Range Interpretation Comments Uric Acid (test code = Uric Acid) 4.1 3.8-8.0 N [facility] HospitalNdnsvkoZSQVCEMAP1386-31-97 09:53:00 Test Item Value Reference Range Interpretation Comments B/C Ratio (test code = B/C Ratio) 19 6-25 N [facility] HospitalXlhbvmmFRPYOUBIFR6588-86-17 09:53:00 Test Item Value Reference Range Interpretation Comments FSP (test code = FSP) (12/16/2012 04:53:00) N [facility] HospitalVogdvkwBGOHFKMBT2531-22-40 02:06:00 Test Item Value Reference Range Interpretation Comments Vanco Tr TND (test code = Vanco Tr TND) 2130 [facility] HospitalBnjplnxAGIRCHYHY9415-43-90 02:06:00 Test Item Value Reference Range Interpretation Comments Vanco Tr (test code = Vanco Tr) 7.7 [facility]QzyjvihKGIESIWOFK7226-84-73 16:40:00 Test Item Value Reference Range Interpretation Comments CMV IgM (test code = CMV IgM) 0.1 [facility]PuhrbuqCRDILXJSJO7802-03-84 16:40:00 Test Item Value Reference Range Interpretation Comments CMV IgG (test code = Non Reactive CMV IgG) *NA*(12/15/2012 11:40:00) [facility] CenterDwwbbjdFMMTXSFVNZ4021-14-48 16:40:00 Test Item Value Reference Range Interpretation Comments Hep Be Ag (test code = Hep Be Ag) REACTIVE A [facility] CenterAusxbyxUIXWLYFRIO1716-68-73 16:40:00 Test Item Value Reference Range Interpretation Comments Hep Be Ab (test code = Hep Be Ab) NONREACTIVE [facility] CenterKmqmqghTIKVEDRDPI7461-67-46 16:40:00 Test Item Value Reference Range Interpretation Comments Hep C Ab (test code = Negative *NA*(12/15/2012 Hep C Ab) 11:40:00) [facility] CenterDmoevsyODSZYGINRB1201-00-54 16:40:00 Test Item Value Reference Range Interpretation Comments Hep Bs Ag (test code Negative *NA*(12/15/2012 = Hep Bs Ag) 11:40:00) [facility] CenterQkvvgpaUJANVXFWTZ2241-51-97 16:40:00 Test Item Value Reference Range Interpretation Comments Hep Bs Ab (test code = Hep Bs Ab) no gt N [facility] CenterYtsgxoqQUOQDHBOLW2823-98-85 16:40:00 Test Item Value Reference Range Interpretation Comments Hep B Core IgM (test Negative *NA*(12/15/2012 code = Hep B Core 11:40:00) IgM) [facility] CenterNugmcgeWNRAFFGHOR9039-64-79 16:40:00 Test Item Value Reference Range Interpretation Comments Hep B Core Ab (test Negative *NA*(12/15/2012 code = Hep B Core Ab) 11:40:00) [facility] CenterRspciboEPOVHKJIZN2114-01-77 16:40:00 Test Item Value Reference Range Interpretation Comments Hep A Tot (test code Negative *NA*(12/15/2012 = Hep A Tot) 11:40:00) [facility] CenterPnoeumuSMQCHKIPDA3569-34-08 16:40:00 Test Item Value Reference Range Interpretation Comments EBV NA IgG (test code = EBV NA IgG) no gt H [facility] MtmzuoeUPRSXEICRH3239-47-10 16:40:00 Test Item Value Reference Range Interpretation Comments EBV VCA IgG (test code = EBV VCA IgG) no gt H [facility] KeeyzfiSTYRLMVLYV4123-72-47 16:40:00 Test Item Value Reference Range Interpretation Comments EBV VCA IgM (test code = EBV VCA IgM) no gt N [facility]annINFECTIOUS FANBEXTS5315-77-58 16:40:00 Test Item Value Reference Range Interpretation Comments CMV PCR Qnt (log) (test code = CMV PCR no gt Qnt (log)) [facility] CenterannUAB HOSPITALECTIOUS MJYYEADZ1138-93-44 16:40:00 Test Item Value Reference Range Interpretation Comments Source CMV PCR Qnt Blood *NA*(12/15/2012 (test code = Source CMV 11:40:00) PCR Qnt) [facility] OHAWOOQJ8214[facility] 16:40:00 Test Item Value Reference Range Interpretation Comments CMV PCR Qnt (test Negative (12/15/2012 N code = CMV PCR Qnt) 11:40:00) [facility] HospitalRcbkqliJJJPDHHOS7832-04-01 10:14:00 Test Item Value Reference Range Interpretation Comments LDL (test code = LDL) 85 <=129 N [facility] CenterNduymioGKIULEEQD3156-85-75 10:14:00 Test Item Value Reference Range Interpretation Comments HDL (test code = HDL) 43 N [facility] CenterKebfmdnOOSAIHJRL3406-25-89 10:14:00 Test Item Value Reference Range Interpretation Comments Chol (test code = Chol) 149 120-200 N [facility] CenterQwexengCOBUXZLNR1502-54-66 10:14:00 Test Item Value Reference Range Interpretation Comments Trig (test code = Trig) 104 <=200 N [facility] CenterNiszbvcNIEODVPER3825-39-51 10:14:00 Test Item Value Reference Range Interpretation Comments CHD Risk (test code = CHD Risk) 3.47 4.00-7.30 L [facility] CenterSjbdtcpEKNTAHYJFW4916-56-15 10:14:00 Test Item Value Reference Range Interpretation Comments FSP (test code = FSP) (12/15/2012 05:14:00) N [facility] CenterTffzyfzIgojitrcdscm9332-30-52 01:00:00 Test Item Value Reference Range Interpretation Comments Culture: Anaerobic (test code = Culture: Anaerobic) [facility]LkcvlyhEhetkowjkstc8113-97-40 01:00:00 Test Item Value Reference Range Interpretation Comments Culture: Wound/Abscess w/Gram Stain (test code = Culture: Wound/Abscess w/Gram Stain) [facility]NdowewhMRLLKBODKM3526-02-20 00:45:00 Test Item Value Reference Range Interpretation Comments FSP (test code = FSP) (12/14/2012 19:45:00) N [facility] HospitalGkbplrpVHHAFBORGO5609-90-04 00:45:00 Test Item Value Reference Range Interpretation Comments D-Dimer (test code = D-Dimer) 0.42 [facility] HospitalAmhwomcAREUPSRNNL4464-03-64 00:45:00 Test Item Value Reference Range Interpretation Comments Fibrinogen Lvl (test code = Fibrinogen 524 230-510 H Lvl) [facility] HospitalVmgyrapBSYVKHPTZ1769-77-05 23:45:00 Test Item Value Reference Range Interpretation Comments Hgb A1C (test code = Hgb A1C) 12.0 [facility] HospitalWxethneYJGTKEBHM3754-07-68 23:45:00 Test Item Value Reference Range Interpretation Comments TSH (test code = TSH) 0.806 0.360-3.740 N [facility] HospitalGjylmnxZPMJJXKGT6937-46-26 23:45:00 Test Item Value Reference Range Interpretation Comments Hgb A1C (test code = Hgb A1C) 12.0 [facility]oundZtrqlbbZpdgiawzefqu7650-64-29 23:45:00 Test Item Value Reference Range Interpretation Comments Culture: Blood (test code = Culture: Blood) [facility]oundJuhndjxWfavkclczrkr5459-52-90 23:30:00 Test Item Value Reference Range Interpretation Comments Culture: Blood (test code = Culture: Blood) [facility]
--- NOTE | 2023-05-27 20:49 | ER ---
Nurse's Notes [facility] Name: Douglas Carrillo Age: 57 yrs Sex: Male : 1965 Arrival Date: 05/27/2023 Time: 19:58 Bed 2 Private MD: Diagnosis: Encounter for attention to tracheostomy Presentation: 05/27 19:59 Chief complaint: EMS states: pulled out Trach. 97% on room air. no other comlaints. lg3 Coronavirus screen: Client denies travel out of the [place] in the last 14 days. At this time, the client does not indicate any symptoms associated with coronavirus-19. Ebola Screen: No symptoms or risks identified at this time. Initial Sepsis Screen: Does the patient meet any 2 criteria? No. Patient's initial sepsis screen is negative. Does the patient have a suspected source of infection? No. Patient's initial sepsis screen is negative. Risk Assessment: Do you want to hurt yourself or someone else? Patient reports no desire to harm self or others. Onset of symptoms was May 27, 2023. 19:59 Method Of Arrival: EMS: [facility] lg3 19:59 Acuity: EMMANUEL 4 lg3 Triage Assessment: 20:03 General: Appears in no apparent distress. comfortable, Behavior is calm, cooperative. lg3 Pain: Denies pain. EENT: No deficits noted. No signs and/or symptoms were reported regarding the EENT system. Neuro: No deficits noted. Espinoza Agitation-Sedation Scale (RASS): 0 - Alert and Calm Level of Consciousness is awake, alert, obeys commands, Oriented to person, place, time, situation. Cardiovascular: No deficits noted. Denies chest pain, shortness of breath, Capillary refill < 3 seconds Clubbing of nail beds is absent JVD is absent Patient's skin is warm and dry. Respiratory: Respiratory effort is even, unlabored, Respiratory pattern is regular, symmetrical, Trach site noted. no redness, swelling or drainage noted. denies pain. GI: No deficits noted. No signs and/or symptoms were reported involving the gastrointestinal system. : No signs and/or symptoms were reported regarding the genitourinary system. Simmons in place to gravity drainage Urine is clear. Derm: No deficits noted. No signs and/or symptoms reported regarding the dermatologic system. Skin is intact, Skin is dry, Skin is normal, Skin temperature is warm. Musculoskeletal: Circulation, motion, and sensation intact. Historical: - Allergies: 20:03 Neostigmine Methylsulfate; lg3 20:03 Sulfa (Sulfonamide Antibiotics); lg3 - PMHx: 20:03 CVA; Diabetes - IDDM; GERD; Hypertension; lg3 - Immunization history:: Adult Immunizations up to date, Client reports receiving the 2nd dose of the Covid vaccine. - Social history:: Smoking status: Patient denies any tobacco usage or history of. Screenin:06 [facility] ED Fall Risk Assessment (Adult) History of falling in the last 3 months, lg3 including since admission No falls in past 3 months (0 pts). Abuse screen: Denies threats or abuse. Denies injuries from another. Nutritional screening: No deficits noted. Tuberculosis screening: No symptoms or risk factors identified. Assessment: 20:06 General: see triage assessment. lg3 21:02 Reassessment: Patient appears in no apparent distress at this time. No changes from lg3 previously documented assessment. Patient and/or family updated on plan of care and expected duration. Pain level reassessed. Patient is alert, oriented x 3, equal unlabored respirations, skin warm/dry/pink. Patient denies pain at this time. 21:13 General: report given to [facility]. awaiting transportation from facility at this time. lg3 Vital Signs: 19:59 BP 127 / 81; Pulse 84; Resp 17 S; Temp 98.4(O); Pulse Ox 98% on R/A; Height 6 ft. 0 in. lg3 ; Pain 0/10; 21:04 BP 130 / 78; Pulse 88; Resp 18 S; Pulse Ox 99% on R/A; lg3 19:59 Pain Scale: Adult lg3 ED Course: 19:59 Patient arrived in ED. lg3 19:59 Warren Domingo MD is Attending Physician. rt 20:03 Triage completed. lg3 20:03 Arm band placed on right wrist. lg3 20:06 Patient has correct armband on for positive identification. Placed in gown. Bed in low lg3 position. Call light in reach. Side rails up X2. Client placed on continuous cardiac and pulse oximetry monitoring. NIBP monitoring applied. Door closed. Noise minimized. Warm blanket given. 20:06 Patient maintains SpO2 saturation greater than 95% on room air. lg3 21:03 Placed Changed trache tube, trache dressing. lg3 21:05 No provider procedures requiring assistance completed. Patient did not have IV access lg3 during this emergency room visit. Administered Medications: No medications were administered Medication: 20:06 VIS not applicable for this client. lg3 Outcome: 20:49 Discharge ordered by MD. rt 21:14 Discharged to [facility]. lg3 21:14 Condition: stable 21:14 Discharge instructions given to patient, Instructed on discharge instructions, Demonstrated understanding of instructions, 21:17 Patient left the ED. lg3 Signatures: Britt Villafuerte RN RN lg3 Warren Domingo MD MD rt Corrections: (The following items were deleted from the chart) 21:04 21:03 General: lg3 lg3 21:06 21:05 Discharged to [facility]. lg3 lg3
--- NOTE | 2023-05-27 20:49 | EDPHYS ---
Physician Documentation [facility] Name: Douglas Carrillo Age: 57 yrs Sex: Male : 1965 Arrival Date: 05/27/2023 Time: 19:58 Bed 2 Private MD: ED Physician Warren Domingo HPI: 05/28 01:36 This 57 yrs old Male presents to ER via EMS with complaints of Tracheostomy removal. rt 01:36 Patient with prior tracheostomy placement presents to the ED after having his rt tracheostomy being and apparently removed. Denies any difficulty breathing, increased secretions, other acute complaints. Symptoms are mild severity, no other aggravating or elevating factors.. Historical: - Allergies: 05/27 20:03 Neostigmine Methylsulfate; lg3 20:03 Sulfa (Sulfonamide Antibiotics); lg3 - PMHx: 20:03 CVA; Diabetes - IDDM; GERD; Hypertension; lg3 - Immunization history:: Adult Immunizations up to date, Client reports receiving the 2nd dose of the Covid vaccine. - Social history:: Smoking status: Patient denies any tobacco usage or history of. ROS: 05/28 01:36 Unable to obtain ROS due to Tracheostomy dependent patient, rt Exam: 01:36 Constitutional: This is a well developed, well nourished patient who is awake, alert, rt and in no acute distress. Chest/axilla: Normal chest wall appearance and motion. Nontender with no deformity. No lesions are appreciated. Cardiovascular: Regular rate and rhythm with a normal S1 and S2. No gallops, murmurs, or rubs. Normal PMI, no JVD. No pulse deficits. Respiratory: Lungs have equal breath sounds bilaterally, clear to auscultation and percussion. No rales, rhonchi or wheezes noted. No increased work of breathing, no retractions or nasal flaring. Abdomen/GI: Soft, non-tender, with normal bowel sounds. No distension or tympany. No guarding or rebound. No evidence of tenderness throughout. Skin: Warm, dry with normal turgor. Normal color with no rashes, no lesions, and no evidence of cellulitis. 01:36 Neck: Tracheostomy hole in place, no purulence, Vital Signs: 05/27 19:59 BP 127 / 81; Pulse 84; Resp 17 S; Temp 98.4(O); Pulse Ox 98% on R/A; Height 6 ft. 0 in. lg3 ; Pain 0/10; 21:04 BP 130 / 78; Pulse 88; Resp 18 S; Pulse Ox 99% on R/A; lg3 19:59 Pain Scale: Adult lg3 Procedures: 05/28 01:36 Performed Tracheostomy replacement. Patient's tracheostomy was in good shape, was rt replaced without difficulty with a small metal lubricant. Good airflow is noted. No complications.. MDM: 05/27 19:59 Patient medically screened. rt 05/28 01:36 Differential Diagnosis Tracheostomy displacement. Data reviewed: vital signs, nurses rt notes. Test considered but Not performed: X-ray: No sputum, shortness of breath, x-rays not indicated. Counseling: I had a detailed discussion with the patient and/or guardian regarding the historical points, exam findings, and any diagnostic results supporting the discharge/admit diagnosis, the need for outpatient follow up. Administered Medications: No medications were administered Disposition Summary: 05/27/23 20:49 Discharge Ordered Notes: Location: Home rt Problem: new rt Symptoms: are resolved rt Condition: Stable rt Diagnosis - Encounter for attention to tracheostomy rt Followup: rt - With: Private Physician - When: 5 - 6 days - Reason: Discharge Instructions: - Discharge Summary Sheet rt - How to Clean a Tracheostomy Tube, Adult, [id number]-Bgvl rt - Tracheostomy Tube Safety and Care, Adult rt Forms: - Medication Reconciliation Form rt - Thank You Letter rt - Antibiotic Education rt - Prescription Opioid Use rt - Patient Portal Instructions rt - Leadership Thank You Letter rt Signatures: Britt Villafuerte, RN RN lg3 Warren Domingo MD MD rt
[2023-05-27 21:49] VITALS: TEMP 98.4
[2023-05-27 21:50] VITALS: BP 130/78; O2SAT 99
== END 2023-05-27 21:17 | disposition home or self-care (01) ==
LOC: ER 19:58
DX: Z43.0 Encounter for attention to tracheostomy (principal)
CPT/HCPCS: 99284

== ENCOUNTER 2023-06-03 05:54 | Inpatient (IN) | payer BC ==
[2023-06-03 06:15] LABS: Absolute Lymphocytes (CBC) 1.5 K/uL (0.7-4.9); Hematocrit 26.4 % (39.6-49.0); Lymphocytes % 10.2 % (15.3-44.8); MCV 85.7 fL (80-100); MPV 7.8 fL (7.6-11.3); Platelets 371 thou/uL (152-406); RBC Red Blood Cell Count 3.08 M/uL (4.33-5.43)
[2023-06-03] MEDS ORDERED: NA CHLORIDE 0.9% 1,000 ML ONE ×3 (06:30→17:41)
[2023-06-03 06:37] LABS: Specific Gravity 1.021 (1.005-1.030); Urine Bacteria 20-50 /HPF (<20); Urine Bilirubin NEGATIVE (Negative); Urine Blood Trace (Negative); Urine Clarity Extremely Turbid (Clear); Urine Color Light-Yellow (Yellow); Urine Glucose 4+ (Over) (Negative); Urine Protein 1+ (Negative); Urine Urobilinogen Normal (Normal)
[2023-06-03 06:37] LABS: Albumin 1.7 g/dL (3.4-5.0); Bilirubin Total 0.5 mg/dL (0.2-1.0); Potassium 5.1 mEq/L (3.5-5.1); Protein, Total 6.7 g/dL (6.4-8.2)
[2023-06-03] MEDS ORDERED: INSULIN REGULAR (HUMAN) 100 UNIT/ML ONE (06:39)
--- OUTSIDE RECORDS SUMMARY | 2023-06-03 06:41 | XMS REPORT | Continuity of Care Document ---
:1965 Author Organization [facility] t Address [address] [facility] [address] [place] [address] Care Team Providers Name Role Phone MART MCKEON Primary Care Physician Unavailable [id number] Attending Clinician Unavailable PHYSICIAN, NON ASSOCIATED Attending Clinician Unavailable JUANY ALBA Attending Clinician Unavailable WIL VAN Attending Clinician Unavailable WIL VAN Attending Clinician Unavailable [email or web address] Attending Clinician Unavailable BRIDGET WEBER Attending Clinician Unavailable DARREL LEYVA Attending Clinician Unavailable Migel WELLS, Christopher Uriel Attending Clinician [phone] Ciarra WELLS, Yassine Man Attending Clinician Dilcia Olivas MD Attending Clinician Autumn WELLS, Darrel Manrique Attending Clinician [phone] 1 KNOW, DOES_NOT Attending Clinician Unavailable LOVE CHILDRESS Attending Clinician Unavailable Ashutosh DAO, Shayan Beckett Attending Clinician Unavailable ONEIDA STOUT Attending Clinician Unavailable Renetta Desai DO Attending Clinician Jin Valiente MD Attending Clinician Oneida Stout DO Attending Clinician Love Don Attending Clinician CIRILO MARTINES Attending Clinician Unavailable Cirilo Martines MD Attending Clinician Doctor Unassigned, [place] Attending Clinician Unavailable DEVIKA ORR Attending Clinician Unavailable Devika Orr DO Attending Clinician RENETTA DESAI Attending Clinician Unavailable Wil Van DO Attending [...] Unavailable Zach Bonilla MD Attending Clinician Nurse, [facility] Nephrology Attending Clinician Unavailable Only, Adc Test Attending Clinician Unavailable DARREL WOOTEN Attending Clinician Unavailable Aman DAO, Raven Attending Clinician Unavailable Chip WELLS, Don Attending Clinician Jatinder Schulz MD Attending Clinician SANDEE CASTILLO Attending Clinician Unavailable Quinton Milton Attending Clinician Kody Valdez Attending Clinician Valerie Anders Attending Clinician Nasir Mcgarry Attending Clinician Noemy Nelson Attending Clinician Rebecca Garzon Attending Clinician Merlin Malik Attending Clinician [id number] Admitting Clinician Unavailable PHYSICIAN, NON ASSOCIATED Admitting [...] Effective Date Expiration Date Zheng kelley WELLCARE/WELLCARE [id number] 2021 [place] 00:00:00 WLCM WLCM [id number] WELLCARE [place] [id number] 2020 PLUS CHOICE 00:00:00 MEDICARE PART A [id number] 2017 \\T\\ B 00:00:00 BLUE CROSS [id number] 2022 MEDICARE ADVANTAGE 00:00:00 - [place] (MEDICARE REPLACEMENT/ADVANT AGE - PPO) MEDICARE-PART B 5 [id number] 2022 00:00:00 BCBS MEDICARE [id number] 2022 ADVANTAGE 00:00:00 BCBS [facility] [id number] 2022 MEDICARE ADV 00:00:00 MANAGED MEDICARE [id number] 2021 PPO/FFS GENERIC 00:00:00 Problems Condition Condition [...] Disorder 00:00: 00 Thrombocyt Thrombocyt Problem Active P [facility]ia osis osis 3-16 Medical 00:00: [...] Medical 00:00: 00 Catheter-a Catheter-a Problem Active 2023-0 P [facility]ia ssociated ssociated 2-20 Medi michelle urinary Urinary 00:00: tract Tract 00 infection Infection Pain of Pain of Problem Active [facility] left Left 2-07 Medical shoulder Shoulder 00:00: joint Joint 00 Penile Penile Disease Active Univers pain pain 1-17 ity of 00:00: [place] [address] Medical Branch Chronic Chronic Disease Active Univers diastolic diastolic 9-23 ity of congestive [place]ive [place] heart heart 00 Medical failure failure Branch Pneumonia Pneumonia Disease Active Uni vers of right of right 9 ity of lower lobe [place] lobe 00:[place] due to due to 00 Medical infectious infectious Br anch organism organism LOW BLOOD LOW BLOOD Diagnosis Active 2022-03-02 [facility] SUGAR AND SUGAR AND 03-02 21:17:00 l LOW O2 LOW O2 00:00: Buck Active 00 03/02/2022 [facility] ESRD ON ESRD ON Diagnosis Active 2022-03-22 [facility] DIALYSIS, DIALYSIS, 03-02 08:58:00 l ACUTE ACUTE 00:00: Buck HYPOXEMIC HYPOXEMIC 00 RESPIR RESPIR Active 03/02/2022 [facility] DEVEN DEVEN Diagnosis Active 2021-12-30 [facility] BILLING BILLING 12-30 11:00:00 l Active 00:00: Buck 12/30/2021 00 [facility] CVA CVA Diagnosis Active 2022-01-24 Mem oria Active 12-30 16:13:00 l 12/30/2021 00:00: Stephen turner [address] Dizzy Dizzy Disease Active Univers spells spells 8-15 ity of 00:00: [place] [address] Medical Branch Hypoglycem Hypoglycem Disease Active U nivers ia ia 8-12 ity of 00:: [place] [facility] Obesity Obesity Disease Active Univers (BMI (BMI 7-15 ity of 30-39.9) 30-39.9) 00:00: [place] [address] Medical Branch Dyslipidem Dyslipidem Disease Active U nivers ia ia 7-15 ity of 00:00: [place] [address] Medical Branch History of History of Disease Active U nivers TIA TIA 7-15 ity of (transient (transient [place] ischemic ischemic 00 Medica l attack) attack) Branch Elevated Elevated Disease Active Unive rs troponin I troponin I 7-15 it y of level level 00:00: Medical Branch 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 7-15 ity of kidney kidney 00:00: [place] disease disease 00 Medical Branch Elevated Elevated [...] [address] [facility] diabetes diabetes -30 [facility] mellitus mellitus 00:00: Medica l with with 00 Center complicati complicati on, with on, with long-term long-term current current use of use of insulin insulin Type 2 Type [address] [facility] diabetes diabetes nce -30 [facility] mellitus mellitus 00:00: Medica l with with 00 Center complicati complicati on, with on, with long-term long-term current current use of use of insulin insulin Olecranon Olecranon Disease Active [facility] bursitis bursitis 30 [facility] of right of right 00:00: Medica l elbow elbow 00 Center Diarrhea, Diarrhea, Disease Active [facility] unspecifie unspecifie 04-29 Eva kes d type d type 00:00: Medical Center Essential Essential Disease Active [facility] hypertensi hypertensi 04-29 Eva kes on on 00:00: 00 Center Hypoglycem Hypoglycem Disease Active U nivers ic coma ic coma 8-21 ity of 00:00: [place] [facility] Callus of Callus of Disease Active Uni vers foot foot 5-24 ity of 00:00: [place] 00 Medical Branch Essential Essential Disease Active Uni vers hypertensi hypertensi 5-24 it y of on on 00:00: [place] [address] Medical Branch CELLULITIS CELLULITI Diagnosis Active 2015-10-13 Memoria ,BELOW THE S,BELOW 10-05 11:32:00 l KNEE THE KNEE 00:00: Buck INFECTION, INFECTION, 00 DIAB DIAB Active 10/06/[address] [facility] STROKE STROKE Diagnosis Active 2014-072015-07-07 Me moria SYMPTOMS SYMPTOMS 09-07 08:23:00 l Active 07:00: Buck 07/07/2015 [place] CVA CVA Diagnosis Active 2014-072015-07-09 Mem oria Active 09-07 11:51:00 l 07/07/2015 07:00: Stephen n 00 [place] R/O TIA, R/O TIA, Diagnosis Active 2014-072015-07-07 Memoria R/O CVA R/O CVA 2 09:02:00 l Active 07:00: Buck 07/07/2015 00 [place] LEFT LOWER LEFT Diagnosis Active 2014-12-05 Memoria EXTREM LOWER 12-05 11:30:00 l ABSCESS EXTREM 00:00: Buck ABSCESS 00 Active 12/05/[address] [facility] [id number], 10901, Diagnosis Active 2014-12-08 N[place] moria LEFT LOWER LEFT LOWER 12-03 09:44:00 l EXTREMITY EXTREMITY 00:00: Herm bhavin ABSCESS , ABSCESS , 00 DI DI Active 12/03/[address] [facility] 60918, 65059, Diagnosis Active 2014-11-05 N[place] moria [id number], [id number], 4-02 09:08:00 l [id number], 41334, 00:00: Arnold CELLULITIS CELLULITIS 00 LEFT FARAZ LEFT FARAZ Active 10/30/[address] [facility] LEFT FOOT LEFT FOOT Diagnosis Active 2014-11-05 Memoria CELLULITIS CELLULITIS 10-23 09:07:00 l , , 00:00: Buck OSTEOMYELI OSTEOMYELI 00 TIS DIAB TIS DIAB Active 10/23/[address] [facility] LEFT FOT LEFT FOT Diagnosis Active 2014-10-23 Memoria SWOLLEN SWOLLEN 10-23 23:57:00 l POST POST 00:00: Arnold SURGERY SURGERY 00 Active 10/23/[address] [facility] HEMORRHAGE HEMORRHAG Diagnosis Active 2014-09-10 Memoria E Active 09-08 16:35:00 l 09/08/2014 21:00: Stephen turner 00 [facility] [address], 22869, Diagnosis Active 2014-09-03 Nc dany 78083, 16680, 08-18 05:53:00 l HYPERTROPH HYPERTROPH 00:00: He rmann Y FIRST Y FIRST 00 METATARS METATARS Active 08/18/[address] [facility] OSTEOMYELI OSTEOMYEL Diagnosis Active 2012-12-27 Memoria TIS,CELLUL ITIS,CELLU 12-14 21:46:00 l ITIS,DIABE LITIS,DIAB 17:00: He rmann PILAR ETES 00 Active 12/14/[address] [facility] 730.27 - 730.27 - Diagnosis Active 2014-03-23 [facility] OSTEOMYELI OSTEOMYELI 12-05 15:16:00 l TIS N TIS N 00:01: Buck Active 00 12/05/2012 [facility] BLOW THE BLOW THE Diagnosis Active 2014-12-08 [facility] KNEE KNEE 07-31 15:23:00 l AMPUTATION AMPUTATION 07:00: He rmann LEFT LOWER LEFT LOWER 00 EXTR EXTR Active 07/31/[address] [facility] Type 1 Type 1 Problem Active [facility] [...] (disorder) (disorder) He rmann Active Problem 01/03/2022 [facility] Diabetic Diabetic Problem Active 2022-03-17 Memoria foot ulcer foot ulcer 22:50:30 l (disorder) (disorder) He rmann Active Problem 03/17/2022 [facility] Dyslipidem Dyslipide Problem Active 2022-03-17 Memoria ia due to joo due to 22:50:30 l type 1 type 1 [place] diabetes diabetes mellitus mellitus (disorder) (disorder) Active Problem 03/17/2022 [facility] Finding of Finding Problem Active 2022-03-17 Memoria body mass of body 22:50:30 l index mass index Stephen n (finding) (finding) Active Problem 03/17/2022 [facility] Foot pain Foot pain Problem Active 2022-03-17 Memoria (finding) (finding) 22:50:30 l Active Arnold Problem 03/17/2022 [facility] Hyperchole Hyperchol Problem Active 2022-03-17 Memoria sterolemia esterolemi 22:50:30 l (disorder) a Stephen n (disorder) Active Problem 03/17/2022 [facility] Hyperglyce Hyperglyc Problem Active 2022-03-17 Memoria joo due to emia due 22:50:30 l type 1 to type 1 Arnold diabetes diabetes mellitus mellitus (disorder) (disorder) Active Problem 03/17/2022 [facility] Hypertensi Hypertens Problem Active 2022-03-17 Memoria ve rocio 22:50:30 l disorder, disorder, Herm bhavin systemic systemic arterial arterial (disorder) (disorder) Active Problem 03/17/2022 [facility] Ischemic Ischemic Problem Active 2022-03-17 Memoria stroke stroke 22:50:30 l (disorder) (disorder) He rmann Active Problem 03/17/2022 [facility], [facility] Obesity Obesity Problem Active 2022-03-17 Me moria (disorder) (disorder) 22:50:30 l Active Arnold Problem 03/17/2022 [facility] Osteomyeli Osteomyel Problem Active 2022-03-17 Memoria tis itis 22:50:30 l (disorder) (disorder) He rmann Active Problem 03/17/2022 foot. [facility] Deficiency Deficienc Problem Active 2022-03-17 Memoria of y of 22:50:30 l macronutri macronutri He rmann ents ents (disorder) (disorder) Active Problem 03/17/2022 [facility] Hyponatrem Problem Active 2022-03-17 M emoria ia Hyponatrem 22:50:30 l (disorder) ia Stephen n (disorder) Active Problem 03/17/2022 [facility] Pseudomona Pseudomon Problem Active 2022-03-17 Memoria s as 22:50:30 l (organism) (organism) He rmann Active Problem 03/17/2022 Problem added by Discern Expert. [facility] Undernutri Undernutr Problem Active 2022-03-17 Memoria tion ition 22:50:30 l (disorder) (disorder) He rmann Active Problem 03/17/2022 [facility] DYSARTHRIA DYSARTHRI Diagnosis Active 2022-01-24 Memoria AND A AND 16:13:00 l ANARTHRIA ANARTHRIA Herm bhavin Active [facility] END STAGE END STAGE Diagnosis Active 2022-03-22 Memoria RENAL RENAL 08:58:00 l DISEASE DISEASE Buck Active [facility] ACUTE ACUTE Diagnosis Active 2022-03-22 Mem oria RESPIRATOR RESPIRATOR 08:58:00 l Y FAILURE Y FAILURE Herm bhavin WITH WITH HYPOXIA HYPOXIA Active [facility] PNEUMONIA, PNEUMONIA Diagnosis Active 2022-03-22 Memoria UNSPECIFIE , 08:58:00 l D ORGANISM UNSPECIFIE He rmann D ORGANISM Active [facility] Peripheral Periphera Problem Resolve 2014-09-05 Memoria front desk associate l d 10:18:42 l y disorder front desk associate He rmann associated y disorder with associated diabetes with mellitus diabetes (disorder) mellitus (disorder) Resolved Problem 09/05/[address] [facility] Entire Entire Problem Resolve 2015-07-11 Mem oria appendix appendix d 04:05:14 l (body (body Arnold structure) structure) Resolved Problem 07/11/2015 [facility], [facility] Appendix Appendix Problem Resolve 2012-12-23 Memoria Resolved d 21:07:29 l Problem Buck 12/23/[address] [facility] Diabetes Diabetes Problem Resolve 2012-12-23 Memoria mellitus mellitus d 21:07:29 l type 2 type 2 Buck w/periph w/periph circ circ disease, disease, not stated not stated as as uncontroll uncontroll ed ed Resolved Problem 12/23/[address] [facility] HEMORRHAGE Diagnosis Active 2014-09-10 Memoria NOS HEMORRHAGE 16:35:00 l NOS Active Stephen n [facility] FOOT PAIN/ FOOT Diagnosis Active 2014-09-09 Memoria POSSIBLE PAIN/ 20:50:00 l BLOOD CLOT POSSIBLE Herm bhavin BLOOD CLOT Active [facility] ADMINISTRT ADMINISTR Diagnosis Active 2014-12-08 Memoria VE ENCOUNT TVE 15:23:00 l NOS ENCOUNT Buck NOS Active [facility] OTHER OTHER Diagnosis Active 2015-07-09 Me moria SEQUELAE SEQUELAE 11:51:00 l OF OF Arnold CEREBRAL CEREBRAL INFARCTION INFARCTION Active [facility] ENCNTR FOR ENCNTR Diagnosis Active 2015-07-08 Memoria GENERAL FOR 08:55:00 l ADULT GENERAL Arnold MEDICAL ADULT EXAM W/ MEDICAL EXAM W/ Active [facility] OTHER OTHER Diagnosis Active 2015-10-13 Mem oria 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:32:00 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 [facility] Allergies, Adverse Reactions, Alerts Allergy Allergy Status [...] ine 02-16 [place] 00:00: Healthc 00 are [facility] SULFA DA Active U UNKNOWN [facility] AND 01-24 Bailey SULFA 00:00: Health DRUGS 00 are [facility] Sulfa Drug Active Other - See Unive rs (Sulfona Allergy comments 04-18 ity o f mide 00:00: [place] Antibiot 00 Medical ics) Branch SULFA Drug Active Hives Univers (SULFONA Class 04-18 ity of MIDE 00:00: [place] ANTIBIOT 00 Medical ICS) Branch OTHER Allergy Active High Anaphylaxis SLSL 04-24 00:00: 00 SULFUR Allergy Active High SLSL 04-24 00:00: 00 SULFUR DRUG Active [...] sulfa sulfa Active Memoria drugs drugs l [place] Betadine Betadine Active Memori a l [place] NKFA NKFA Active Memoria l [place] Family History Family Member Diagnosis Comments Start Date Stop Date Source Natural mother Heart disease [facility] Social History Social Habit Start Date Stop Date Quantity Comments Source History of tobacco Passive smoker Un iversity of use [place] [facility] History SDOH Social Unive rsity of Connections [facility] Med ical Together Branch History SDOH Social Unive rsity of Connections [facility] Medical Branch History SDOH Social Unive rsity of [facility] Medical Membership Branch History SDOH Social Unive rsity of [facility] Medical Meetings Branch History SDOH [facility] Alcohol Frequency Medical Center History SDOH [facility] Alcohol Std Drinks Medica l Center History SDOH [facility] Alcohol Binge Medical Devi ter Exposure to 2022-08-06 2022-08-16 Not sure University of SARS-CoV-2 (event) 00:00:00 13:49:00 [place] [facility] History SDOH Social 2022-08-16 2022-08-16 1 Unive rsity of Connections Phone 00:00:00 00:00:00 [facility] [place] [facility] edical Branch History SDKS Social 2022-08-16 2022-08-16 3 Unive rsity of Connections Living 00:00:00 00:00:00 [place] [facility] History SDOH 2022-08-16 2022-08-16 0 University o f Physical Activity 00:00:00 00:00:00 [facility] [place] [facility] edical DPW Branch History SDKS 2022-08-16 2022-08-16 0 University o f Physical Activity 00:00:00 00:00:00 [facility] [place] [facility] edical MPS Branch History SDOH 2022-08-16 2022-08-16 5 University o f Financial 00:00:00 00:00:00 [place] [facility] History SDOH Food 2022-08-16 2022-08-16 1 Univers ity of Worry 00:00:00 00:00:00 [place] [facility] History SDOH Food 2022-08-16 2022-08-16 1 Univers ity of Scarcity 00:00:00 00:00:00 [place] [facility] History SDKS 2022-08-16 2022-08-16 2 University o f Transport Med 00:00:00 00:00:00 [place] Medic al Branch History SDKS 2022-08-16 2022-08-16 2 University o f Transport Non-Med 00:00:00 00:00:00 [facility] edical Branch Education 2022-08-16 2022-08-16 13 University of 00:00:00 00:00:00 [facility] Tobacco use and 2022-08-16 2022-08-16 Smokeless Universit y of exposure 00:00:00 00:00:00 tobacco non-user [facility] dical Branch Social History 2021-12-30 2021-12-30 [facility] 15:21:50 15:21:50 Alcohol Comment 2018-04-24 2018-04-[address] [facility] 00:00:00 00:00:00 Medical [place] Alcohol intake 2018-04-24 2018-04-24 [facility] [facility] (finding) Tobacco Comment 2018-04-24 2018-04-24 PT HAS SMOKED [facility] 00:00:00 00:00:00 [place] IN THE Medical Center PAST , THE TIME HE WAS AMPUTATED Sex Assigned At [address] [facility] 00:00:00 00:00:00 Medical Center Smoking Status Start Date Stop Date Source Never Smoker [facility] Medications Ordered Filled Start Stop Current Ordering Indication Dosage Frequency Signature Comments Components Source Medication Medication Date Date Medication? Clinician (SIG) Name Name acetaminoph 2022-0 Yes 650mg Take 2 [facility]I [...] Joyce es 10 gram/15 14:05: total) by Nc dical mL (15 mL) 07 mouth Center [...] Joyce es 10 gram/15 14:05: total) by Nc dical mL (15 mL) 07 mouth Center [...] insulin [address] [facility] lispro 5-11 subcut[facility]o [facility] (HumaLOG) 14:05: usly every Me dical 100 unit/mL 07 6 (six) Cente r injection hours Per sliding scale. levothyroxi Yes 25ug Take [address] [facility] ne 5-11 tablet (25 [facility] (SYNTHROID, 14:05: mcg total) Medical LEVOTHROID) 07 by mouth Cent er 25 MCG Every tablet morning on an empty stomach. omeprazole 0 Yes 10mg QD Take 1 [...] (six) hours as needed for Nausea. acetaminoph 0 Yes 650mg Take 2 [facility]I [...] Joyce es 10 gram/15 14:05: total) by Nc dical mL (15 mL) 07 mouth Center [...] Joyce es 10 gram/15 14:05: total) by Nc dical mL (15 mL) 07 mouth Center [...] Joyce es 10 gram/15 14:05: total) by Nc dical mL (15 mL) 07 mouth Center [...] r injection hours Per sliding scale. levothyroxi Yes 25ug Take [address] [facility] ne 5-11 tablet (25 [facility] (SYNTHROID, 14:05: mcg total) Medical LEVOTHROID) 07 by mouth Cent er 25 MCG Every tablet morning on an empty stomach. omeprazole 0 Yes 10mg QD Take 1 [...] Joyce es 10 gram/15 14:05: total) by Nc dical mL (15 mL) 07 mouth Center [...] Joyce es 10 gram/15 14:05: total) by Nc dical mL (15 mL) 07 mouth Center [...] Joyce es 10 gram/15 14:05: total) by Nc dical mL (15 mL) 07 mouth Center [...] Joyce es 10 gram/15 14:05: total) by Nc dical mL (15 mL) 07 mouth Center [...] r injection hours Per sliding scale. levothyroxi 2023-0 Yes 25ug Take 1 CHI [...] Joyce es 10 gram/15 14:05: total) by Nc dical mL (15 mL) 07 mouth Center [...] Joyce es 10 gram/15 14:05: total) by Nc dical mL (15 mL) 07 mouth Center [...] Joyce es 10 gram/15 14:05: total) by Nc dical mL (15 mL) 07 mouth Center [...] r injection hours Per sliding scale. levothyroxi 2023-0 Yes 25ug Take 1 CHI [...] Joyce es 10 gram/15 14:05: total) by Nc dical mL (15 mL) 07 mouth Center [...] Joyce es 10 gram/15 14:05: total) by Nc dical mL (15 mL) 07 mouth Center [...] Joyce es 10 gram/15 14:05: total) by Nc dical mL (15 mL) 07 mouth Center [...] r injection hours Per sliding scale. levothyroxi 2023-0 Yes 25ug Take 1 CHI [...] Joyce es 10 gram/15 14:05: total) by Nc dical mL (15 mL) 07 mouth Center [...] (six) hours as needed for Nausea. carvedilol 2022- No 25mg Take 2 [facility] [...] needed (sbp<150, dbp>90). hydrALAZINE 2022- No 10mg Q.[id number] Take [address] (APRESOLINE 12-08 [id number] tablet (10 [facility] ) 10 MG 10:09: [...] as directed by . nystatin 2022- No [id number] Take [address] (MYCOSTATIN 12-08 [...] needed (sbp<150, dbp>90). hydrALAZINE 2022- No 10mg Q.[id number] Take [address] (APRESOLINE 12-08 [id number] tablet (10 [facility] ) 10 MG 10:09: [...] as directed by . nystatin 2022- No [id number] Take [address] (MYCOSTATIN 12-08 [...] needed (sbp<150, dbp>90). hydrALAZINE 2022- No 10mg Q.[id number] Take [address] (APRESOLINE 12-08 [id number] tablet (10 [facility] ) 10 MG 10:09: 00:00 3D mg total) Medi michelle tablet 47 :00 by mouth Center in the morning and 1 tablet (10 mg total) at noon and 1 tablet (10 mg total) in the evening. ipratropium 2022-2022- No .5mg Take 2.[address] [...] as directed by . nystatin 2022- No [id number] Take [address] (MYCOSTATIN 12-08 [...] needed (sbp<150, dbp>90). hydrALAZINE 2022- No 10mg Q.[id number] Take [address] (APRESOLINE 12-08 [id number] tablet (10 [facility] ) 10 MG 10:09: [...] as directed by . nystatin 2022- No [id number] Take [address] (MYCOSTATIN 12-08 [...] needed (sbp<150, dbp>90). hydrALAZINE 2022- No 10mg Q.[id number] Take [address] (APRESOLINE 12-08 [id number] tablet (10 [facility] ) 10 MG 10:09: [...] as directed by . nystatin 2022- No [id number] Take [address] (MYCOSTATIN 12-08 [...] needed (sbp<150, dbp>90). hydrALAZINE 2022- No 10mg Q.[id number] Take [address] (APRESOLINE 12-08 [id number] tablet (10 [facility] ) 10 MG 10:09: [...] as directed by . nystatin 2022- No [id number] Take [address] (MYCOSTATIN 12-08 [...] needed (sbp<150, dbp>90). hydrALAZINE 2022- No 10mg Q.[id number] Take [address] (APRESOLINE 12-08 [id number] tablet (10 [facility] ) 10 MG 10:09: [...] as directed by . nystatin 2022- No [id number] Take [address] (MYCOSTATIN 12-08 [...] needed (sbp<150, dbp>90). hydrALAZINE 2022- No 10mg Q.[id number] Take [address] (APRESOLINE 12-08 [id number] tablet (10 [facility] ) 10 MG 10:09: [...] as directed by . nystatin 2022-2022- No [id number] Take [address] (MYCOSTATIN 12-08 (500,000 Joyce es ) 100,000 10:09: 00:00 Units Medica l unit/mL 47 :00 total) by Center suspension mouth every 12 (twelve) hours For redness related to candidiasi s of skin and nail. carvedilol 2023-0 2023- No 25mg Take [address] [facility] (COREG) [...] needed (sbp<150, dbp>90). hydrALAZINE 2022- No 10mg Q.[id number] Take [address] (APRESOLINE 12-08 [id number] tablet (10 [facility] ) 10 MG 10:09: [...] as directed by . nystatin 2022- No [id number] Take [address] (MYCOSTATIN 12-08 [...] needed (sbp<150, dbp>90). hydrALAZINE 2022- No 10mg Q.[id number] Take [address] (APRESOLINE 12-08 [id number] tablet (10 [facility] ) 10 MG 10:09: [...] as directed by . nystatin 2022- No [id number] Take [address] (MYCOSTATIN 12-08 [...] needed (sbp<150, dbp>90). hydrALAZINE 2022- No 10mg Q.[id number] Take [address] (APRESOLINE 12-08 [id number] tablet (10 [facility] ) 10 MG 10:09: [...] as directed by . nystatin 2022- No [id number] Take [address] (MYCOSTATIN 12-08 [...] (eight) hours as needed (sbp<150, dbp>90). hydrALAZINE 2022-2022- No 10mg Q.[id number] Take [address] (APRESOLINE 12-08 [id number] tablet (10 [facility] ) 10 MG 10:09: [...] as directed by . nystatin 2022- No [id number] Take [address] (MYCOSTATIN 12-08 [...] needed (sbp<150, dbp>90). hydrALAZINE 2022- No 10mg Q.[id number] Take [address] [facility] (APRESOLINE 12-08 [id number] tablet (10 [facility] ) 10 MG 10:09: [...] as directed by MD. nystatin 2022- No [id number] Take [address] [facility] (MYCOSTATIN 12-08 [...] .1mg Take 1 [facility] HCL 12-0811 [facility] (CATAPRES) 10:09: 00:00 (0.1 mg Med ical 0.1 MG 47 :00 total) by Center tablet mouth every 8 (eight) hours as needed (sbp<150, dbp>90). hydrALAZINE 2022- No 10mg Q.[id number] Take [address] [facility] (APRESOLINE 12-08 [id number] tablet (10 [facility] ) 10 MG 10:09: [...] as directed by MD. nystatin 2022- No [id number] Take [address] [facility] (MYCOSTATIN 12-08 [...] needed (sbp<150, dbp>90). hydrALAZINE 2022- No 10mg Q.[id number] Take [address] [facility] (APRESOLINE 12-08 [id number] tablet (10 [facility] ) 10 MG 10:09: [...] as directed by . nystatin 2022- No [id number] Take [address] [facility] (MYCOSTATIN 12-08 [...] needed (sbp<150, dbp>90). hydrALAZINE 2022- No 10mg Q.[id number] Take [address] [facility] (APRESOLINE 12-08 [id number] tablet (10 [facility] ) 10 MG 10:09: [...] as directed by . nystatin 2022- No [id number] Take [address] [facility] (MYCOSTATIN 12-08 [...] needed (sbp<150, dbp>90). hydrALAZINE 2022- No 10mg Q.[id number] Take [address] [facility] (APRESOLINE 12-08 [id number] tablet (10 [facility] ) 10 MG 10:09: [...] as directed by . nystatin 2022- No [id number] Take [address] [facility] (MYCOSTATIN 12-08 (500,000 [facility] ) 100,000 10:09: 00:00 Units Medica l unit/mL 47 :00 total) by Center suspension mouth every 12 (twelve) hours For redness related to candidiasi s of skin and nail. zinc oxide 2023-[address] [facility] 20 % 5-11 topically [facility] ointment 00:00: as needed. Med ical 00 [place] hydrALAZINE 2023-0 Yes 50mg Q.[id number] Take [address] [facility] (APRESOLINE 5-11 [id number] tablet (50 [facility] ) 50 MG 00:00: [...] mLs [facility] -albuteroL 5-11 by [facility] (PartigiO-NEB) 00:00: nebulizati Me dical 0.5 mg-3 00 on every 6 Cente r mg(2.5 mg (six) base)/3 mL hours. nebulizer solution zinc oxide 3-[address] [facility] 20 % 5-11 topically [facility] ointment 00:00: as needed. Med ical [address] [place] [address] hydrALAZINE 2023-0 Yes 50mg Q.[id number] Take [address] [facility] (APRESOLINE 5-11 [id number] tablet (50 [facility] ) 50 MG 00:00: [...] base)/3 mL hours. nebulizer solution zinc oxide 2023-[address] [facility] 20 % 5-11 topically [facility] ointment 00:00: as needed. Med ical 00 [place] hydrALAZINE 2023-0 Yes 50mg Q.[id number] Take [address] [facility] (APRESOLINE 5-11 [id number] tablet (50 [facility] ) 50 MG 00:00: [...] mLs [facility] -albuteroL 5-11 by [facility] (PartigiO-NEB) 00:00: nebulizati Me dical 0.5 mg-3 00 on every 6 Cente r mg(2.5 mg (six) base)/3 mL hours. nebulizer solution zinc oxide 3-[address] [facility] 20 % 5-11 topically [facility] ointment 00:00: as needed. Med ical 00 [place] hydrALAZINE 3-0 Yes 50mg Q.[id number] Take [address] [facility] (APRESOLINE 5-11 [id number] tablet (50 [facility] ) 50 MG 00:00: [...] base)/3 mL hours. nebulizer solution zinc oxide 2023-[address] [facility] 20 % 5-11 topically [facility] ointment 00:00: as needed. Med ical 00 [place] hydrALAZINE 2023-0 Yes 50mg Q.[id number] Take [address] [facility] (APRESOLINE 5-11 [id number] tablet (50 [facility] ) 50 MG 00:00: [...] mLs [facility] -albuteroL 5-11 by [facility] (Takepin-RadPad) 00:00: nebulizati Me dical 0.5 mg-3 00 on every 6 Cente r mg(2.5 mg (six) base)/3 mL hours. nebulizer solution zinc oxide 3-[address] [facility] 20 % 5-11 topically [facility] ointment 00:00: as needed. Med ical 00 [place] hydrALAZINE 3-0 Yes 50mg Q.[id number] Take [address] [facility] (APRESOLINE 5-11 [id number] tablet (50 [facility] ) 50 MG 00:00: [...] base)/3 mL hours. nebulizer solution zinc oxide 2023-[address] [facility] 20 % 5-11 topically [facility] ointment 00:00: as needed. Med ical 00 [place] hydrALAZINE 2023-0 Yes 50mg Q.[id number] Take [address] [facility] (APRESOLINE 5-11 [id number] tablet (50 [facility] ) 50 MG 00:00: [...] base)/3 mL hours. nebulizer solution zinc oxide 2023-[address] [facility] 20 % 5-11 topically [facility] ointment 00:00: as needed. Med ical [address] [place] [address] hydrALAZINE 3-0 Yes 50mg Q.[id number] Take [address] [facility] (APRESOLINE 5-11 [id number] tablet (50 [facility] ) 50 MG 00:00: [...] base)/3 mL hours. nebulizer solution zinc oxide 2023-[address] [facility] 20 % 5-11 topically [facility] ointment 00:00: as needed. Med ical 00 Center hydrALAZINE 2023-0 Yes 50mg Q.[id number] Take [address] [facility] (APRESOLINE 5-11 [id number] tablet (50 [facility] ) 50 MG 00:00: [...] base)/3 mL hours. nebulizer solution zinc oxide 2023-[address] [facility] 20 % 5-11 topically [facility] ointment 00:00: as needed. Med ical 00 [place] hydrALAZINE 2023-0 Yes 50mg Q.[id number] Take [address] [facility] (APRESOLINE 5-11 [id number] tablet (50 [facility] ) 50 MG 00:00: [...] base)/3 mL hours. nebulizer solution zinc oxide 2023-[address] [facility] 20 % 5-11 topically [facility] ointment 00:00: as needed. Med ical 00 Center hydrALAZINE 2023-0 Yes 50mg Q.[id number] Take [address] [facility] (APRESOLINE 5-11 [id number] tablet (50 [facility] ) 50 MG 00:00: [...] base)/3 mL hours. nebulizer solution zinc oxide 2023-[address] [facility] 20 % 5-11 topically [facility] ointment 00:00: as needed. Med ical 00 [place] hydrALAZINE 2023-0 Yes 50mg Q.[id number] Take [address] [facility] (APRESOLINE 5-11 [id number] tablet (50 [facility] ) 50 MG 00:00: [...] base)/3 mL hours. nebulizer solution zinc oxide 2023-[address] [facility] 20 % 5-11 topically [facility] ointment 00:00: as needed. Med ical 00 [place] hydrALAZINE 2023-0 Yes 50mg Q.[id number] Take [address] [facility] (APRESOLINE 5-11 [id number] tablet (50 [facility] ) 50 MG 00:00: [...] base)/3 mL hours. nebulizer solution zinc oxide 2023-[address] [facility] 20 % 5-11 topically [facility] ointment 00:00: as needed. Med ical 00 [place] hydrALAZINE 2023-0 Yes 50mg Q.[id number] Take [address] [facility] (APRESOLINE 5-11 [id number] tablet (50 [facility] ) 50 MG 00:00: [...] base)/3 mL hours. nebulizer solution zinc oxide 2023-[address] [facility] 20 % 5-11 topically [facility] ointment 00:00: as needed. Med ical 00 [place] hydrALAZINE 2023-0 Yes 50mg Q.[id number] Take [address] [facility] (APRESOLINE 5-11 [id number] tablet (50 [facility] ) 50 MG 00:00: [...] [facility] ointment 00:00: as needed. Med ical [address] [place] [address] hydrALAZINE 3-0 Yes 50mg Q.[id number] Take [address] [facility] (APRESOLINE 5-11 [id number] tablet (50 [facility] ) 50 MG 00:00: [...] base)/3 mL hours. nebulizer solution zinc oxide 2023-[address] [facility] 20 % 5-11 topically [facility] ointment 00:00: as needed. Med ical 00 Center hydrALAZINE 0 Yes 50mg Q.[id number] Take [address] [facility] (APRESOLINE 5-11 [id number] tablet (50 [facility] ) 50 MG 00:00: 3D mg total) Medic al tablet 00 by mouth Center in the morning and 1 tablet (50 mg total) at noon and 1 tablet (50 mg total) in the evening. . carvediloL Yes 25mg Take 1 [facility] (COREG) 25 5-11 tablet (25 [facility] MG tablet 00:00: mg total) Med ical 00 by mouth 2 Center (two) times daily with breakfast and dinner. ipratropium 0 Yes 3mL Take [address] [facility] -albuteroL 5-11 by [facility] (DUO-NEB) 00:00: nebulizati Me dical 0.5 mg-3 00 on every 6 Cente r mg(2.5 mg (six) base)/3 mL hours. nebulizer solution lactobacill 2022- No 1{capsu Q.5D Take [address] [facility] us 5-11 05-25 le} capsule by [facility] rhamnosus, 00:00: 23:59 mouth in [facility], 00 :00 the [place] ([facility] ) 10 and 1 billion capsule cell before capsule bedtime. Do all this for 14 days. lactobacill 2022- No 1{capsu Q.5D Take [address] [facility] us 5-11 05-25 le} capsule by [facility] rhamnosus, 00:00: 23:59 mouth in [facility], 00 :00 the Center ([facility] ) 10 and 1 billion capsule cell before capsule bedtime. Do all this for 14 days. lactobacill 2022- No 1{capsu Q.5D Take [address] [facility] us 5-11 05-25 le} capsule by [facility] rhamnosus, 00:00: 23:59 mouth in [facility], 00 :00 the Center ([facility] ) 10 and 1 billion capsule cell before capsule bedtime. Do all this for 14 days. lactobacill 2022- No 1{capsu Q.5D Take [address] [facility] us 5-11 05-25 le} capsule by [facility] rhamnosus, 00:00: 23:59 mouth in [facility], 00 :00 the Center (CULTURE ) 10 and 1 billion capsule cell before capsule bedtime. Do all this for 14 days. lactobacill 2022- No 1{capsu Q.5D Take [address] [facility] us 5-11 05-25 le} capsule by [facility] rhamnosus, 00:00: 23:59 mouth in [facility], 00 :00 the Center (CULTURE ) 10 and 1 billion capsule cell before capsule bedtime. Do all this for 14 days. lactobacill 2022- No 1{capsu Q.5D Take [address] [facility] us 5-11 05-25 le} capsule by [facility] rhamnosus, 00:00: 23:59 mouth in [facility], 00 :00 the Center ( ) 10 and 1 billion capsule cell before capsule bedtime. Do all this for 14 days. lactobacill 2022- No 1{capsu Q.5D Take [address] [facility] us 5-11 05-25 le} capsule by [facility] rhamnosus, 00:00: 23:59 mouth in [facility], 00 :00 the Center ( ) 10 and 1 billion capsule cell before capsule bedtime. Do all this for 14 days. lactobacill 2022- No 1{capsu Q.5D Take [address] [facility] us 5-11 05-25 le} capsule by [facility] rhamnosus, 00:00: 23:59 mouth in [facility], 00 :00 the Center (CULTURE ) 10 and 1 billion capsule cell before capsule bedtime. Do all this for 14 days. lactobacill 2022- No 1{capsu Q.5D Take [address] [facility] us 5-11 05-25 le} capsule by [facility] rhamnosus, 00:00: 23:59 mouth in [facility], 00 :00 the Center ( ) 10 and 1 billion capsule cell before capsule bedtime. Do all this for 14 days. lactobacill 2022- No 1{capsu Q.5D Take [address] [facility] us 5-11 05-25 le} capsule by [facility] rhamnosus, 00:00: 23:59 mouth in [facility], 00 :00 the Center (CULTURE ) 10 and 1 billion capsule cell before capsule bedtime. Do all this for 14 days. lactobacill 2022- No 1{capsu Q.5D Take [address] [facility] us 5-11 05-25 le} capsule by [facility] rhamnosus, 00:00: 23:59 mouth in [facility], 00 :00 the Center (CULTURE ) 10 and 1 billion capsule cell before capsule bedtime. Do all this for 14 days. lactobacill 2022- No 1{capsu Q.5D Take [address] [facility] us 5-11 05-25 le} capsule by [facility] rhamnosus, 00:00: 23:59 mouth in [facility], 00 :00 the Center ([facility] ) 10 and 1 billion capsule cell before capsule bedtime. Do all this for 14 days. lactobacill 2022- No 1{capsu Q.5D Take [address] [facility] us 5-11 05-25 le} capsule by [facility] rhamnosus, 00:00: 23:59 mouth in [facility], 00 :00 the Center (CULTURE ) 10 and 1 billion capsule cell before capsule bedtime. Do all this for 14 days. lactobacill 2022- No 1{capsu Q.5D Take [address] [facility] us 5-11 05-25 le} capsule by [facility] rhamnosus, 00:00: 23:59 mouth in [facility], 00 :00 the Center (CULTURE ) 10 and 1 billion capsule cell before capsule bedtime. Do all this for 14 days. lactobacill 2022- No 1{capsu Q.5D Take [address] [facility] us 5-11 05-25 le} capsule by [facility] rhamnosus, 00:00: 23:59 mouth in [facility], 00 :00 the Center (CULTURE ) 10 and 1 billion capsule cell before capsule bedtime. Do all this for 14 days. lactobacill 2022- No 1{capsu Q.5D Take [address] [facility] us 5-11 05-25 le} capsule by [facility] rhamnosus, 00:00: 23:59 mouth in [facility], 00 :00 the Center ( ) 10 and 1 billion capsule cell before capsule bedtime. Do all this for 14 days. lactobacill 3-0 2023- No 1{capsu Q.5D Take [address] [facility] us 12-0825 le} capsule by [facility] rhamnosus, 00:00: 23:59 mouth in [facility], 00 :00 the Center (CULTURE ) 10 and 1 billion capsule cell before capsule bedtime. Do all this for 14 days. levoFLOXaci 2023-0 2023- No 500mg Q24H [...] Q24H Take [address] n 5- 05-21 tablet [facility] (LEVAQUIN) 00:00: 23:59 (500 [...] Q24H Take [address] n 511 05-21 tablet [facility] (LEVAQUIN) 00:00: 23:59 (500 [...] for 10 days. hydrALAZINE 2023-0 Yes 10mg Q.[id number] Take [address] [facility] (APRESOLINE 5-09 [id number] tablet (10 [facility] ) 10 MG 07:28: 3D mg total) Medic al tablet 07 by mouth Center in the morning and 1 tablet (10 mg total) at noon and 1 tablet (10 mg total) in the evening. hydrALAZINE 2023-0 Yes 10mg Q.[id number] Take [address] [facility] (APRESOLINE 5-09 [id number] tablet (10 [facility] ) 10 MG 07:28: [...] nightly Hold sbp<110, dbp<60, HR <60. acetaminoph 2022-0 Yes 650mg Take [address] [facility] en 5-05 tablets [place] (TYLENOL) 15:03: (650 mg Medic al 325 MG 19 total) by Center tablet mouth every 4 (four) hours as needed for Pain. acetylcyste 2022-0 Yes 1mL Take [address] ine 5-05 by [place] (MUCOMYST) 15:03: nebulizati M edical 100 mg/mL [...] [facility] es 10 gram/15 15:03: total) by Nc dical mL (15 mL) 19 mouth Center [...] capsule mouth nightly. hydrALAZINE 2023-0 Yes 10mg Q.[id number] Take [address] [facility] (APRESOLINE 5-05 [id number] tablet (10 [facility] ) 10 MG 15:03: [...] as directed by . nystatin 0 Yes [id number] Take [address] [facility] (MYCOSTATIN 5-05 [...] Joyce es 10 gram/15 15:03: total) by Nc dical mL (15 mL) 19 mouth Center [...] capsule mouth nightly. hydrALAZINE 2022-0 Yes 10mg Q.[id number] Take [address] [facility] (APRESOLINE 5-05 [id number] tablet (10 [facility] ) 10 MG 15:03: [...] hours or as directed by . nystatin 2023-0 Yes [id number] Take [address] [facility] (MYCOSTATIN 5-05 [...] [facility] es 10 gram/15 15:03: total) by Nc dical mL (15 mL) 19 mouth Center [...] capsule mouth nightly. hydrALAZINE 2023-0 Yes 10mg Q.[id number] Take [address] [facility] (APRESOLINE 5-05 [id number] tablet (10 [facility] ) 10 MG 15:03: [...] as directed by MD. nystatin 2022-0 Yes [id number] Take [address] [facility] (MYCOSTATIN 5-05 [...] [facility] es 10 gram/15 15:03: total) by Nc dical mL (15 mL) 19 mouth Center [...] capsule mouth nightly. hydrALAZINE 2023-0 Yes 10mg Q.[id number] Take [address] [facility] (APRESOLINE 5-05 [id number] tablet (10 [facility] ) 10 MG 15:03: [...] as directed by . nystatin 2022-0 Yes [id number] Take [address] [facility] (MYCOSTATIN 5-05 [...] as directed by . nystatin 3-0 Yes [id number] Take [address] [facility] (MYCOSTATIN 5-05 [...] I St (LIDODERM) 5-05 } patch onto Jyoce es 5 % patch 15:03: the skin Medi michelle 19 every 12 Center (twelve) hours Remove & Discard patch within 12 hours or as directed by . nystatin 2022-0 Yes [id number] Take [address] [facility] (MYCOSTATIN 5-05 [...] Hold sbp <110, dbp<60, pulse <60. carvedilol 2022-0 Yes 25mg Take 2 [facility] (COREG) 5-05 tablets [facility] 12.5 MG 11:50: (25 mg Medical tablet 14 total) by Center mouth every 12 (twelve) hours Hold sbp <110, dbp<60, pulse <60. carvedilol 2022-0 Yes 25mg Take 2 [facility] (COREG) 5-05 tablets [facility] 12.5 MG 11:50: (25 mg Medical tablet 14 total) by Center mouth every 12 (twelve) hours Hold sbp <110, dbp<60, pulse <60. carvedilol 2022-0 Yes 25mg Take 2 [facility] (COREG) 5-05 tablets [facility] 12.5 MG 11:50: (25 mg Medical tablet 14 total) by Center mouth every 12 (twelve) hours Hold sbp <110, dbp<60, pulse <60. budesonide 2022-0 Yes .5mg Take [address] (PULMICORT) 5-04 (0.5 mg [facility] 0.5 mg/2 mL 06:48: total) by [facility] nebulizer 17 nebulizati Cent er solution on every 12 (twelve) hours. lactulose 2022-0 Yes 20g Take 30 [facility] (CHRONULAC) 5-04 mLs (20 g Joyce es 10 gram/15 06:48: total) by Nc dical mL (15 mL) 17 mouth Center solution every 6 (six) hours as needed (constipat ion). escitalopra 2022-0 Yes 10mg QD Take [address] [facility] m oxalate 5-04 tablet (10 [facility] (LEXAPRO) 06:48: mg total) Med ical 10 MG 17 by mouth Center tablet in the morning. tamsulosin 2022-0 Yes .4mg QD Take 1 [facility] (FLOMAX) 5-04 capsule [facility] 0.4 mg Cap 06:48: (0.4 mg Medi michelle 24 hr 17 total) by Center capsule mouth nightly. hydrALAZINE 2022-0 Yes 10mg Q.[id number] Take [address] [facility] (APRESOLINE 5-04 [id number] tablet (10 [facility] ) 10 MG 06:48: [...] as directed by . nystatin 2022-0 Yes [id number] Take [address] [facility] (MYCOSTATIN 5-04 [...] Joyce es 10 gram/15 06:48: total) by Nc dical mL (15 mL) 17 mouth Center [...] capsule mouth nightly. hydrALAZINE 2023-0 Yes 10mg Q.[id number] Take [address] [facility] (APRESOLINE 5-04 [id number] tablet (10 [facility] ) 10 MG 06:48: [...] as directed by . nystatin 2022-0 Yes [id number] Take [address] [facility] (MYCOSTATIN 5-04 [...] Joyce es 10 gram/15 06:48: total) by Nc dical mL (15 mL) 17 mouth Center [...] capsule mouth nightly. hydrALAZINE 3-0 Yes 10mg Q.[id number] Take [address] [facility] (APRESOLINE 5-04 [id number] tablet (10 [facility] ) 10 MG 06:48: [...] as directed by MD. nystatin 2022-0 Yes [id number] Take [address] [facility] (MYCOSTATIN 5-04 [...] 5mg/20ml. Give 5ml every 12 hours. carvedilol 3-0 Yes 25mg Take 2 [facility] [...] 5mg/20ml. Give 5ml every 12 hours. carvedilol 3-0 Yes 25mg Take 2 [facility] [...] 5mg/20ml. Give 5ml every 12 hours. carvedilol 2022-0 Yes 25mg Take 2 [facility] [...] Joyce es 10 gram/15 07:49: total) by Nc dical mL (15 mL) 07 mouth Center [...] capsule mouth nightly. hydrALAZINE 2023-0 Yes 10mg Q.[id number] Take [address] [facility] (APRESOLINE 5-03 [id number] tablet (10 [facility] ) 10 MG 07:49: [...] or as directed by . nystatin Yes [id number] Take [address] [facility] (MYCOSTATIN 5-03 [...] capsule mouth nightly. hydrALAZINE 2022-0 Yes 10mg Q.[id number] Take [address] [facility] (APRESOLINE 5-03 [id number] tablet (10 [facility] ) 10 MG 07:49: [...] as directed by . nystatin 0 Yes [id number] Take [address] [facility] (MYCOSTATIN 5-03 [...] Joyce es 10 gram/15 07:49: total) by Nc dical mL (15 mL) 07 mouth Center [...] capsule mouth nightly. hydrALAZINE 2022-0 Yes 10mg Q.45227786 Take [address] [facility] (APRESOLINE 5-03 [id number] tablet (10 [facility] ) 10 MG 07:49: 3D mg total) Medic al tablet 07 by mouth Center in the morning and 1 tablet (10 mg total) at noon and 1 tablet (10 mg total) in the evening. hydrOXYzine 0 Yes 10mg Take [address] [facility] (ATARAX) [...] as directed by . nystatin 2022-0 Yes [id number] Take [address] [facility] (MYCOSTATIN 5-03 [...] Joyce es 10 gram/15 07:49: total) by Nc dical mL (15 mL) 07 mouth Center [...] capsule mouth nightly. hydrALAZINE 2023-0 Yes 10mg Q.[id number] Take [address] [facility] (APRESOLINE 5-03 [id number] tablet (10 [facility] ) 10 MG 07:49: [...] as directed by . nystatin 0 Yes [id number] Take [address] [facility] (MYCOSTATIN 5-03 [...] Joyce es 10 gram/15 07:49: total) by Nc dical mL (15 mL) 07 mouth Center [...] capsule mouth nightly. hydrALAZINE 2023-0 Yes 10mg Q.[id number] Take [address] [facility] (APRESOLINE 5-03 [id number] tablet (10 [facility] ) 10 MG 07:49: [...] nebulizati on every 12 (twelve) hours. levothyroxi 202-0 Yes 25ug Take [address] [facility] ne [...] as directed by MD. nystatin 2022-0 Yes [id number] Take [address] [facility] (MYCOSTATIN 5-03 [...] Joyce es 10 gram/15 07:49: total) by Nc dical mL (15 mL) 07 mouth Center [...] capsule mouth nightly. hydrALAZINE 2022-0 Yes 10mg Q.[id number] Take [address] [facility] (APRESOLINE 5-03 [id number] tablet (10 [facility] ) 10 MG 07:49: [...] as directed by . nystatin 2022-0 Yes [id number] Take [address] [facility] (MYCOSTATIN 5-03 [...] Joyce es 10 gram/15 07:49: total) by Nc dical mL (15 mL) 07 mouth Center [...] capsule mouth nightly. hydrALAZINE 2023-0 Yes 10mg Q.[id number] Take [address] [facility] (APRESOLINE 5-03 [id number] tablet (10 [facility] ) 10 MG 07:49: [...] or as directed by . nystatin Yes [id number] Take [address] [facility] (MYCOSTATIN 5-03 [...] capsule mouth nightly. hydrALAZINE 2023-0 Yes 10mg Q.[id number] Take [address] [facility] (APRESOLINE 5-03 [id number] tablet (10 [facility] ) 10 MG 07:49: [...] as directed by . nystatin 0 Yes [id number] Take [address] [facility] (MYCOSTATIN 5-03 [...] hours as needed for Nausea. telmisartan 2022-0 2022- No 1{tbl} QD Take [address] -hydrochlor 5-03 05-03 tablet by Eva phipps othiazide 05:41: 00:00 mouth Medica l (MICARDIS 12 :00 daily. Center HCT) 40-12.5 mg per tablet telmisartan 3-0 2022- No 1{tbl} QD Take [address] -hydrochlor 5-03 05-03 tablet by Eva kes othiazide 05:41: 00:00 mouth Medica l (MICARDIS 12 :00 daily. Center HCT) 40-12.5 mg per tablet telmisartan 3-0 2022- No 1{tbl} QD Take [address] -hydrochlor 5-03 05-03 tablet by Eva kezheng othiazide 05:41: 00:00 mouth Medica l (MICARDIS [...] mouth Medica l (MICARDIS 12 :00 daily. [place] HCT) 40-12.5 mg per tablet telmisartan 2022- [...] mouth Medica l (MICARDIS 12 :00 daily. [place] HCT) 40-12.5 mg per tablet telmisartan 2022- No 1{tbl} QD Take [address] -hydrochlor 5-03 05-03 tablet by Eva kes othiazide 05:41: 00:00 mouth Medica l (MICARDIS 12 :00 daily. [place] HCT) 40-12.5 mg per tablet telmisartan 2022- No 1{tbl} QD Take [address] -hydrochlor 5-03 05-03 tablet by Eva kes othiazide 05:41: 00:00 mouth Medica l (MICARDIS 12 :00 daily. [facility]) 40-12.5 mg per tablet insulin 2022- No [...] 2022- No 50U Inject [facility] 70/30, 5 05-03 50-55 [facility] insulin 05:40: 00:00 Units [...] 2022- No 50U Inject [facility] 70/30, 11-30 05-03 50-55 [facility] insulin 05:40: 00:00 Units [...] 2022- No 50U Inject [facility] 70/30, 11-30 05-03 50-55 [facility] insulin 05:40: 00:00 Units [...] 2022- No 50U Inject [facility] 70/30, 11-30 05-03 50-55 [facility] insulin 05:40: 00:00 Units [...] (70-30) before InPn meals. insulin pen insulin 2022-0 2023- No 50U Inject [facility] 70/30, 5-03 05-03 50-55 [facility] insulin 05:40: 00:00 Units Medical NPH-insulin 11 :00 subcutaneo Ce nter regular, usly 2 (HUMULIN (two) 70/30) 100 times unit/mL daily (70-30) before InPn meals. insulin pen acetaminoph 2022-0 Yes 1{tbl} Take 1 [facility] [...] I St en-codeine 5-02 tablet by [place] [facility] (TYLENOL 00:00: mouth Medical #3) 300-30 00 every 8 Center mg per (eight) tablet hours as needed for Pain. acetaminoph 2023-0 Yes 1{tbl} Take [address] en-codeine 5-02 tablet by [place] [facility] (TYLENOL 00:00: mouth Medical #3) 300-30 00 every 8 Center mg per (eight) tablet hours as needed for Pain. acetaminoph 2023-0 Yes 1{tbl} Take [address] en-codeine 5-02 tablet by [place] [facility] (TYLENOL 00:00: mouth Medical #3) 300-30 00 every 8 Center mg per (eight) tablet hours as needed for Pain. acetaminoph 2023-0 Yes 1{tbl} Take [address] en-codeine 5-02 tablet by [place] [facility] (TYLENOL 00:00: mouth Medical #3) 300-30 00 every 8 Center mg per (eight) tablet hours as needed for Pain. acetaminoph 2023-0 Yes 1{tbl} Take [address] en-codeine 5-02 tablet by [place] [facility] (TYLENOL 00:00: mouth Medical #3) 300-30 00 every 8 Center mg per (eight) tablet hours as needed for Pain. acetaminoph 2023-0 Yes 1{tbl} Take [address] en-codeine 5-02 tablet by [place] [facility] (TYLENOL 00:00: mouth Medical #3) 300-30 00 [...] I St en-codeine 5-02 tablet by [place] [facility] (TYLENOL 00:00: mouth Medical #3) 300-30 00 every 8 Center mg per (eight) tablet hours as needed for Pain. acetaminoph 3-0 Yes 1{tbl} Take [address] en-codeine 5-02 tablet by [place] [facility] (TYLENOL 00:00: mouth Medical #3) 300-30 00 every 8 Center mg per (eight) tablet hours as needed for Pain. acetaminoph 3-0 Yes 1{tbl} Take [address] en-codeine 5-02 tablet by [place] [facility] (TYLENOL 00:00: mouth Medical #3) 300-30 00 every 8 Center mg per (eight) tablet hours as needed for Pain. acetaminoph 2022-0 3- No 1{tbl} Take [address] [...] hours as needed for Pain. acetaminoph 2022-0 3- No 1{tbl} Take [address] en-codeine 5-02 05-11 tablet by [facility] es (TYLENOL 00:00: 00:00 mouth Medical #3) 300-30 00 :00 every 8 Center mg per (eight) tablet hours as needed for Pain. acetaminoph 2022-0 3- No 1{tbl} Take [address] en-codeine 5-02 05-11 tablet by Joyce es (TYLENOL 00:00: 00:00 mouth Medical #3) 300-30 00 :00 every 8 Center mg per (eight) tablet hours as needed for Pain. acetaminoph 2022-0 3- No 1{tbl} Take [address] [...] 50mg QD Take [address] [facility] (DIFLUCAN) 11-23- tablet (50 Eva kes 50 MG 00:00: [...] QD Take [address] [facility] (DIFLUCAN) - 05-04 tablet (50 Eva kes 50 MG [...] 50mg QD Take [address] [facility] (DIFLUCAN) 11-23- tablet (50 Eva kes 50 MG 00:00: 23:59 mg total) Medica l tablet 00 :00 by mouth Center in the morning. For UTI due to yeast for 7 days. folic 2022-0 Yes 1{tbl} Take 1 [facility] acid/vit B 2-06 tablet by ity of complex and 19:34: mouth [place] 08 daily. Medical (DIALYVITE Branch 800 ORAL) tamsulosin 2022-0 Yes .4mg Take 0.4 Uni vers 0.4 mg 24 2-06 mg by ity of hr capsule 19:34: mouth at [facility] 08 bedtime. Medical Branch sennosides 0 Yes 8.6mg Take 8.6 Un kraig 8.6 mg 2-06 mg by ity of tablet 19:34: mouth in [place] 08 the Medical morning Branch and 8.6 mg in the evening. escitalopra 2022-0 Yes 10mg Take 10 mg [facility] m oxalate 2-06 by mouth ity of 10 mg 19:34: in the [facility] 08 morning. Medical Branch ondansetron 2022-0 Yes 4mg Take 4 mg U nivers 4 mg tablet 2-06 by mouth ity of 19:34: every 8 [place] 08 (eight) Medical hours as Branch needed for Nausea and Vomiting (N/V). aspirin 81 2022-0 Yes 81mg Take 81 mg U nivers mg EC 2-06 by mouth ity of tablet 19:34: in the [place] 08 morning. Medical Branch metoclopram 2022-0 Yes 10mg Take 10 mg Univers bebo HCl 10 2-06 by mouth ity o f mg tablet 19:34: every 8 [place] [address] (eight) Medical hours as Branch needed for [...] Medical DRESSING) Other Branch Pste (wound). folic Yes 1{tbl} Take 1 Univers acid/vit [...] ity of 10 mg 19:34: in the [place] [facility] 08 morning. Medical Branch ondansetron 0 Yes 4mg Take 4 mg U nivers 4 mg tablet 2-06 by mouth ity of 19:34: every 8 [place] 08 (eight) Medical hours as Branch needed for Nausea and Vomiting (N/V). aspirin 81 0 Yes 81mg Take 81 mg U nivers mg EC 2-06 by mouth ity of tablet 19:34: in the [place] 08 morning. Medical Branch metoclopram 0 Yes 10mg Take 10 mg Univers bebo HCl 10 2-06 by mouth ity o f mg tablet 19:34: every 8 [place] 08 (eight) Medical hours as Branch needed [...] ity o f (TRIAD 19:34: area(s) as [place] WOUND 08 needed for Medical DRESSING) Other Branch Pste (wound). QUEtiapine 2022-0 2022- No 50mg Take 50 mg Univers (SEROQUEL) 2- 01-20 by mouth ity of 50 mg 19:34: 00:00 at [place] tablet 03 :00 bedtime. Medical Branch ipratropium 3-0 Yes .5mg 0.5 mg, Uni vers (ATROVENT) 2-06 Inhalation ity of 0.02 % 02:00: , BID, [place] nebulizer 00 First dose Medi michelle solution on [facility] 0.5 mg 09/04/22 at 1999, Until Discontinu ed, Routine albuterol 2023-0 Yes 2.5mg 2.5 mg, Univ ers (PROVENTIL) 2-06 Inhalation it y of 2.5 mg /3 02:00: , BID, [place] mL (0.083 00 First dose Medi michelle %) on [facility] nebulizer 09/04/22 at solution 1999, 2.5 [...] Medic al in the Branch evening. albuterol 3-0 Yes 2.5mg Inhale 3 Uni vers 2.5 mg /3 2-06 mL in the ity o f mL (0.083 00:00: morning [place] %) 00 and 3 mL Medical nebulizer in the Branch solution evening. ipratropium 3-0 Yes .5mg Inhale 2.5 Univers 0.02 % 2-06 mL in the ity of nebulizer 00:00: morning [place] solution 00 and 2.5 mL Medic al in the Branch evening. lactulose 2022-0 Yes 30mL 30 mL, Univer s (CEPHULAC) 2-04 Enteral, ity o f solution 30 14:55: Q6HPRN, [place] mL 44 Starting Medical on Sat Branch 09/03/22 at 0855, Until Discontinu ed, Routine, Constipati on, until pt has a BM metoclopram 2022-0 2022- No 10mg 10 mg, Uni vers bebo HCl 09-02-03 Slow IV ity of (REGLAN) 06:15: 13:46 Push, BID, [place] injection 00 :00 2 doses, Medica l 10 mg First dose Branch on Mon09/02/22 at 0015, Last dose on Mon09/02/22 at 0800, Routine ondansetron 2022-0 Yes 8mg 8 mg, Slow Univers (ZOFRAN 09-02 IV Push, ity of (PF)) 06:13: Q6HPRN, [place] injection 8 13 Nausea and Me dical mg Vomiting Branch (N/V), Starting on Mon09/02/22 at 0013
Do ses of ondansetro n 16 mg and above need to be administer ed via IV piggyback. For Dose >=24mg ECG monitoring is advisable.
levothyroxi 2022-0 2022- No [id number] 25ug Take 1 Univers ne 25 mcg 09-02- tablet ity of tablet 00:00: 05:59 through [place] 00 :00 enteral Medical tube every Branch morning for 30 days. levothyroxi 2023-0 2023- No [id number] 25ug Take 1 Univers ne 25 mcg 09-02-06 tablet ity of tablet 00:00: 05:59 through [place] 00 :00 enteral Medical tube every Branch morning for 30 days. levothyroxi 2022- No 25ug Take 25 Un [place] ne 50 mcg 09-01-02 mcg by ity of tablet 13:15: 00:00 mouth [place] 55 :00 every Medical morning. [place] ferrous 2022- No [id number] 300mg Take 5 mL Univers sulfate 300 09-01-05 through ity of mg (60 mg 00:00: 05:59 enteral [place] iron)/5 mL 00 :00 tube in Medica l solution the Branch morning for 30 days. insulin 2022- No [id number] 10U inject 10 Univers glargine 09-01-05 Units ity of 100 unit/mL 00:00: 05:59 under the [place] injection 00 :00 skin at [facility] for 30 days. ferrous 2022- No [id number] 300mg Take 5 mL [facility] sulfate 300 09-01- through ity of mg (60 mg 00:00: 05:59 [place]eral [place] iron)/5 mL 00 :00 tube in Medica l solution the [place] morning for 30 days. insulin 2022- No [id number] 10U inject 10 Univers glargine 09-01 03-05 Units ity of 100 unit/mL 00:00: 05:59 under the [place] injection 00 :00 skin at [facility] for 30 days. D5W 0.9% 2022- No 1000mL at 100 Univ ers NaCl (NS) 128 01-28 mL/hr, ity of IV infusion 11:15: 10:29 1,000 mL, [place] 1,000 mL 00 :00 IV Medical Infusion, [place] ONCE, 1 dose, On 08/27/22 at 0515, Routine insulin Yes 10U 10 Units, Unive rs glargine 1-25 Subcutaneo ity o f (LANTUS 03:00: , [facility], [place] U-100) 00 First dose Medical injection on Mon Branch 10 Units 08/23/22 at 2100, Until Discontinu ed, Routine ferrous Yes 300mg 300 mg, Univer s sulfate 300 1-25 Enteral, ity of mg (60 mg 02:00: BID, First [place] iron)/5 mL 00 dose on Medica l solution [facility] Branch 300 mg 08/23/22 at 1999, Until Discontinu ed, Routine ceftolozane 2022-0 2022- No 750mg 750 mg, U nivers -tazobactam 08-24 Intravenou i ty of (ZERBAXA) 02:00: 11:09 s, Q8H [place] 750 mg in 00 :00 ABX, 14 Medical NaCl 0.9% doses, Branch (NS) 100 mL First dose IV infusion (after last modificati on) on Mon08/23/22 at 1999, Last dose on Mon08/28/22 at 0400, 100 mL ceftolozane 2022-0 2022- No 750mg 750 mg, U nivers -tazobactam 08-23 Intravenou i ty of (ZERBAXA) 14:00: 20:11 s, Q8H [place] 750 mg in 00 :43 ABX, 15 Medical NaCl 0.9% doses, Branch (NS) 100 mL First dose IV infusion on Mon08/23/22 at 0800, Last dose on Mon08/28/22 at 0000, 100 mL ceFEPIme 2022-2022- No 2000mg 2,000 mg, U nivers (MAXIPIME) [...]
D uration of Therapy: 7 days ceFEPIme 2022-0 2022- No 2000mg 2,000 mg, U nivers [...]
D uration of Therapy: 7 days folic 2022-0 Yes 1{tbl} Take 1 Univers acid/vit B 1-20 tablet by ity of complex and 13:08: mouth [place] C 54 daily. Medical (DIALYVITE Branch 800 ORAL) sennosides Yes 8.6mg Take 8.6 Un [place] 8.6 mg 1-20 mg by ity of tablet 13:08: mouth in [place] [address] the Medical morning Branch and 8.6 mg in the evening. escitalopra Yes 10mg Take 10 mg Univers m oxalate 1-20 by mouth ity of 10 mg 13:08: in the [place] [address] morning. Medical Branch ondansetron Yes 4mg Take 4 mg U nivers 4 mg tablet 1-20 by mouth ity of 13:08: every 8 [place] [address] (eight) Medical hours as Branch needed for Nausea and Vomiting (N/V). aspirin 81 Yes 81mg Take 81 mg U nivers mg EC 1-20 by mouth ity of tablet 13:08: in the [place] [address] morning. Medical Branch metoclopram Yes 10mg Take 10 mg Univers bebo HCl 10 1-20 by mouth ity o f mg tablet 13:08: every 8 [place] [address] (eight) Medical hours as Branch needed for Nausea and Vomiting (N/V). insulin Yes 30U inject 30 Unive rs glargine,hu 1-20 Units ity of m.rec.anlog 13:08: under the [place] (BASAGLAR 54 skin every Medi michelle KWIKPEN 12 Branch U-100 (twelve) INSULIN SC) hours. Hold PM dose if BG <150 omeprazole Yes 10mg Take 10 mg U nivers (PRILOSEC) 1-20 by mouth ity o f 2 mg/mL 13:08: daily. [place] oral 54 Medical suspension Branch Wound Yes 1{squir Apply 1 Univer s Dressings 1-20 t} Squirt to ity o f (TRIAD 13:08: area(s) as [place] WOUND 54 needed for Medical DRESSING) Other Branch Pste (wound). ceFEPIme 2022- No 1000mg 1,000 mg, U nivers (MAXIPIME) 08-19 IV ity of 1,000 mg in 09:45: 15:00 [place], [place] NaCl 0.9% 00 :31 Q12H ABX, [...] ity of 1,000 mg in 22:30: 23:06 [place], [place] NaCl 0.9% 00 :00 ONCE, 1 Medical (NS) 50 mL dose, On Bran h MINI-BAG Mon08/18/22 at 1630, Administer over 30 Minutes, 50 mL
Reas on for Anti-Infec tive: Documented Infection< br>Documen mendoza Infection Site: Urine<br&g t;Duration of Therapy: 7 days D5W IV 2022- No 1000mL at 50 Univers infusion 08-1820 mL/hr, IV ity o f 1,000 mL [...] 0915, Until Mon08/18/22 at 1254, Routine insulin 2023-0 2023- No 25U 25 Units, Univ ers glargine 08-18 Subcutaneo ity of (LANTUS 03:00: 17:29 us, QHS, [place] U-100) 00 :22 First dose Medical injection (after Branch 25 Units last modificati on) on Mon08/17/22 at 2100, Until Discontinu ed, Routine Sliding Yes Subcutaneo Univ ers Scale 1-19 us, Q4H, ity of Insulin - 02:00: First dose [place] Lispro 00 on Mon Medical (HumaLOG) + 08/17/22 at Br anch Fsbg 1999, Testing Until Discontinu ed, [...]
D uration of therapy: 72 hours glucagon Yes 1mg 1 mg, Univers (GLUCAGEN 08-18 Intramuscu ity of DIAGNOSTIC 01:04: lar, PRN, [place] KIT) 25 Starting Medical injection 1 on Mon Branch mg 08/17/22 at 1904, Until Discontinu ed, JUMA, Blood Glucose < or = 70 mg/dL and patient is unable to swallow or has mental changes. dextrose 50 Yes 25mL 25 mL, Univ ers % in water 08-18 Slow IV ity of (D50W) 01:04: Push, PRN, [place] injection 25 Starting Medica l 25 mL on Mon Branch 08/17/22 at 1904, Until Discontinu ed, JUMA, Blood Glucose < or = 70 mg/dL and patient is unable to swallow or has mental status changes. Sliding 2022-0 2022- No Subcutaneo Uni vers Scale 1-18 08-18 us, 5X ity of Insulin - 20:00: [...] Yes 35U 35 Units, Unive rs glargine 08-17 Subcutaneo ity o f (LANTUS 15:00: us, [...] No 10U 10 Units, Univ ers lispro 08-17 Subcutaneo ity of (human) 07:45: 07:06 us, ONCE, [place] (HumaLOG 00 :00 1 dose, On Medic al U-100) Wed Branch injection 08/17/22 at 10 Units 0145, Routine D5W IV 2022- No 1000mL at 50 Univers infusion 08-1718 mL/hr, IV ity o f 1,000 mL 03:15: 12:45 Infusion, [place] as 00 :58 CONTINUOUS Medical , Starting Branch on Mon08/16/22 at 2115, Until Mon08/17/22 at 0645, Routine tamsulosin 0 Yes .4mg 0.4 mg, [facility] ers (FLOMAX) -18 Oral, QHS, ity o f capsule 0.4 03:00: First dose [place] mg 00 on [facility] 08/16/22 at Branch 2100, Until Discontinu ed, Routine atorvastati 0 Yes 20mg 20 mg, [facility] ers n (LIPITOR) -18 Oral, QHS, it y of tablet 20 03:00: First dose [place] mg 00 on [facility] 08/16/22 at Branch 2100, Until Discontinu ed, Routine amLODIPine 0 Yes 10mg 10 mg, [facility] rs (NORVASC) 18 Oral, QHS, ity of tablet 10 03:00: First dose [place] mg 00 on [facility] 08/16/22 at Branch 2100, Until Discontinu ed, Routine insulin 2022- No 20U 20 Units, [facility] ers glargine 08-1718 Subcutaneo ity of (LANTUS 03:00: 06:52 us, QHS, [place] U-100) 00 :49 First dose Medical injection on [facility] Branch 20 Units 08/16/22 at 2100, Until Discontinu ed, Routine heparin 0 Yes 5000U 5,000 Univers (porcine) 18 Units, ity of injection 02:00: Subcutaneo [place] 5,000 Units 00 us, Q12H, Med ical First dose Branch on Mon08/16/22 at 2000, Until Discontinu ed, Routine ipratropium 2022- No 3mL 3 mL, [facility] ers -albuteroL 08-17 02-05 Inhalation it y of (DUONEB) 02:00: 20:21 , BID, [place] 0.5 mg-3 00 :43 First dose Medic al mg(2.5 mg on [facility] base)/3 mL 08/16/22 at nebulizer 2000, solution 3 Until mL Discontinu ed, Routine Sliding 2022-2022- No Subcutaneo Uni vers Scale 1-18 08-17 us, 5X ity of Insulin - 00:00: 17:00 DAY, First [place] Lispro 00 :43 dose Medical (HumaLOG) + (after Branch Fsbg last Testing modificati on) on Mon08/16/22 at 1800, Until Discontinu ed, Routine carvediloL Yes 25mg 25 mg, Unive rs (COREG) 17 Oral, BID ity of tablet 25 23:00: MEALS, [place] mg 00 First dose Medical on Mon Branch 08/16/22 at 1700, Until Discontinu ed, Routine Sliding 2022- No Subcutaneo Uni vers Scale 08-16 , QID, ity of Insulin - 22:00: 22:09 [...] HYDROcodone Yes 1{tbl} 1 tablet, Univers -acetaminop 08-16 Oral, ity of hen (NORCO) 17:13: Q6HPRN, [place] as 10-325 mg 40 Starting Medica l tablet 1 on Mon Branch tablet 08/16/22 at 1113, Until Discontinu ed, Routine, Pain (scale 7-10) acetaminoph Yes 650mg 650 mg, Un [place] en 08-16 Oral, ity of (TYLENOL) 17:13: Q6HPRN, [place] tablet 650 35 Starting Medic al mg on Mon Branch 08/16/22 at 1113, Until Discontinu ed, [...] 00 :00 dose, On Medi michelle mg [facility] 08/16/22 at 0845, JUMA piperacilli 2022- No 3.375g 3.375 g, Univers n-tazobacta 08-16 IV ity of m (ZOSYN) 14:15: 15:00 Piggyback, [place] 3.375 g in 00 :00 ONCE, 1 Medica l NaCl 0.9% dose, On Branch (NS) 50 mL e MINI-BAG 08/16/22 at 0815, Administer over 30 Minutes, 50 mL
R trinity for Anti-Infec tive: Documented Infection< br>Documen mendoza Infection Site: Urine<br&g t;Duration of Therapy: 7 days NaCl 0.9% 2022- No 1000mL at 999 Uni vers (NS) IV 08-06-07 mL/hr, ity of infusion 17:45: 18:45 Intravenou [place] 1,000 mL 00 :00 s, ONCE, 1 Medic al dose, On Branch 08/06/22 at 1145, JUMA cefTRIAXone 2021-07 Yes 1000mg 1,000 mg, Univers (ROCEPHIN) 2-21 Slow IV ity of injection 21:00: Push, Q24H [place] 1,000 mg 00 ABX, First Medic al dose on Branch 07/20/22 at 1500, Until Discontinu ed, JUMA<br&gt ;Reason for Anti-Infec tive: Empiric Therapy for Suspected Infection< br>Empiric Therapy Site: Urine
D uration of therapy: 72 hours levoFLOXaci 2021-07 Yes [id number] 750mg Take 1 Univers n 750 mg 2-21 tablet by ity of tablet 00:00: mouth [place] 00 every 24 Medical (twenty-fo Branch ur) hours. levoFLOXaci 2021-07 Yes [id number] 750mg Take 1 Univers n 750 mg 2-21 tablet by ity of tablet 00:00: mouth [place] 00 every 24 Medical (twenty-fo Branch ur) hours. levoFLOXaci 2021-07 Yes [id number] 750mg Take 1 Univers n 750 mg 2-21 tablet by ity of tablet 00:00: mouth [place] 00 every 24 Medical (twenty-fo Branch ur) hours. levoFLOXaci 2021-07- No [id number] 750mg Take 1 Univers n 750 mg 2-21 -17 tablet by ity o f tablet 00:00: 00:00 mouth [place] 00 :00 every 24 Medical (twenty-fo Branch ur) hours. levoFLOXaci 2021-07 No [id number] 750mg Take 1 Univers n 750 mg 2-21 12-21 tablet by ity o f tablet 00:00: 00:00 mouth [place] 00 :00 every 24 Medical (twenty-fo Branch ur) hours. cefTRIAXone 2021-07 No 1000mg 1,000 mg, Univers (ROCEPHIN) 09-16 12-18 IV ity of 1,000 mg in 16:30: 04:29 [place], [place] NaCl 0.9% 00 :00 ONCE, 1 Medical (NS) 50 mL dose, On [facility] h MINI-BAG 07/16/22 at 1030, Administer over [...] 07/16/22 at 1015, JUMA cefpodoxime 2021-07- No [id number] 100mg Take 1 Univers 100 mg 2-17 12-25 tablet by ity of tablet 00:00: 05:59 mouth in [place] 00 :00 the Medical morning Branch and 1 tablet in the evening. Do all this for 7 days. cefpodoxime 2021-07- No [id number] 100mg Take 1 Univers 100 mg 2-17 12-25 tablet by ity of tablet 00:00: 05:59 mouth in [place] 00 :00 the Medical morning Branch and 1 tablet in the evening. Do all this for 7 days. diatrizoate 2021-07- No [id number] 120mL 120 mL, Univers soraida-diatriz 2-10 12-10 Oral, ity of oat sod 00:45: 00:24 ONCE, 1 [place] (GASTROGRAF 00 :00 dose, On Medi michelle IN) 66-10 % Fri Branch oral 07/08/22 at solution 1845, 120 mL Routine folic 2021-07 Yes 1{tbl} Take 1 Univers acid/vit B 0-25 tablet by ity of complex and 11:35: mouth [facility] 33 daily. Medical (DIALYVITE Branch 800 ORAL) tamsulosin 2021-07 Yes .4mg Take 0.4 Uni vers 0.4 mg 24 0-25 mg by ity of hr capsule 11:35: mouth at [facility] as 33 bedtime. Medical Branch sennosides 2021-07 Yes 8.6mg Take 8.6 Un [place] 8.6 mg 0-25 mg by ity of tablet 11:35: mouth in [place] 33 the Medical morning Branch and 8.6 mg in the evening. escitalopra 2021-07 Yes 10mg Take 10 mg Univers m oxalate 0-25 by mouth ity of 10 mg 11:35: in the [facility] 33 morning. Medical Branch ondansetron 2021-07 Yes 4mg Take 4 mg U nivers 4 mg tablet 0-25 by mouth ity of 11:35: every 8 [place] [address] (eight) Medical hours as Branch needed for Nausea and Vomiting (N/V). aspirin 81 2021-07 Yes 81mg Take 81 mg U nivers mg EC 0-25 by mouth ity of tablet 11:35: in the [place] [address] morning. Medical Branch metoclopram 2021-07 Yes 10mg Take 10 mg Univers bebo HCl 10 0-25 by mouth ity o f mg tablet 11:35: every 8 [place] [address] (eight) Medical hours as Branch needed for [...] by ity of tablet 11:35: mouth in [place] 33 the Medical morning Branch and 8.6 mg in the evening. escitalopra 2021-07 Yes 10mg Take 10 mg Univers m oxalate 0-25 by mouth ity of 10 mg 11:35: in the [facility] 33 morning. Medical Branch ondansetron 2021-07 Yes 4mg Take 4 mg U nivers 4 mg tablet 0-25 by mouth ity of 11:35: every 8 [place] 33 (eight) Medical hours as Branch needed for Nausea and Vomiting (N/V). aspirin 81 2021-07 Yes 81mg Take 81 mg U nivers mg EC 0-25 by mouth ity of tablet 11:35: in the [place] 33 morning. Medical Branch metoclopram 2021-07 Yes 10mg Take 10 mg Univers bebo HCl 10 0-25 by mouth ity o f mg tablet 11:35: every 8 [place] [address] (eight) Medical hours as Branch needed for [...] ity o f 2 mg/mL 11:35: daily. [place] oral 33 Medical suspension Branch folic 2021-07 Yes 1{tbl} Take 1 Univers acid/vit B 0-25 tablet by ity of complex and 11:35: mouth [facility] 33 daily. Medical (DIALYVITE Branch 800 ORAL) tamsulosin 2021-07 Yes .4mg Take 0.4 Uni vers 0.4 mg 24 0-25 mg by ity of hr capsule 11:35: mouth at [facility] as 33 bedtime. Medical Branch sennosides 2021-07 Yes 8.6mg Take 8.6 Un [place] 8.6 mg 0-25 mg by ity of tablet 11:35: mouth in [place] 33 the Medical morning Branch and 8.6 mg in the evening. escitalopra 2021-07 Yes 10mg Take 10 mg Univers m oxalate 0-25 by mouth ity of 10 mg 11:35: in the [facility] 33 morning. Medical Branch ondansetron 2021-07 Yes 4mg Take 4 mg U nivers 4 mg tablet 0-25 by mouth ity of 11:35: every 8 [place] [address] (eight) Medical hours as Branch needed for Nausea and Vomiting (N/V). aspirin 81 2021-07 Yes 81mg Take 81 mg U nivers mg EC 0-25 by mouth ity of tablet 11:35: in the [place] [address] morning. Medical Branch metoclopram 2021-07 Yes 10mg Take 10 mg Univers bebo HCl 10 0-25 by mouth ity o f mg tablet 11:35: every 8 [place] [address] (eight) Medical hours as Branch needed for [...] ity o f 2 mg/mL 11:35: daily. [place] oral 33 Medical suspension Branch folic 2021-07 Yes 1{tbl} Take 1 Univers acid/vit B 0-25 tablet by ity of complex and 11:35: mouth [place] C 33 daily. Medical (DIALYVITE Branch 800 ORAL) tamsulosin 2021-07 Yes .4mg Take 0.4 Uni vers 0.4 mg 24 0-25 mg by ity of hr capsule 11:35: mouth at [facility] as 33 bedtime. Medical Branch sennosides 2021-07 Yes 8.6mg Take 8.6 Un [place] 8.6 mg 0-25 mg by ity of tablet 11:35: mouth in [place] [address] the Medical morning Branch and 8.6 mg in the evening. escitalopra 2021-07 Yes 10mg Take 10 mg Univers m oxalate 0-25 by mouth ity of 10 mg 11:35: in the [facility] 33 morning. Medical Branch ondansetron 2021-07 Yes 4mg Take 4 mg U nivers 4 mg tablet 0-25 by mouth ity of 11:35: every 8 [place] [address] (eight) Medical hours as Branch needed for Nausea and Vomiting (N/V). aspirin 81 2021-07 Yes 81mg Take 81 mg U nivers mg EC 0-25 by mouth ity of tablet 11:35: in the [place] [address] morning. Medical Branch metoclopram 2021-07 Yes 10mg Take 10 mg Univers bebo HCl 10 0-25 by mouth ity o f mg tablet 11:35: every 8 [place] [address] (eight) Medical hours as Branch needed for Nausea and Vomiting (N/V). levothyroxi 2021-07 Yes 25ug Take 25 Uni vers ne 50 mcg 0-25 mcg by ity of tablet 11:35: mouth [place] [address] every Medical morning. Branch insulin 2021-07 Yes 30U inject 30 Unive rs glargine,hu 0-25 Units ity of m.rec.anlog 11:35: under the [place] (BASAGLAR 33 skin every Medi michelle KWIKPEN 12 Branch U-100 (twelve) INSULIN SC) hours. Hold PM dose if BG <150 omeprazole 2021-07 Yes 10mg Take 10 mg U nivers (PRILOSEC) 0-25 by mouth ity o f 2 mg/mL 11:35: daily. [place] oral 33 Medical suspension Branch folic 2021-07 Yes 1{tbl} Take 1 Univers acid/vit B 0-25 tablet by ity of complex and 11:35: mouth [facility] 33 daily. Medical (DIALYVITE Branch 800 ORAL) tamsulosin 2021-07 Yes .4mg Take 0.4 Uni vers 0.4 mg 24 0-25 mg by ity of hr capsule 11:35: mouth at [facility] as 33 bedtime. Medical Branch sennosides 2021-07 Yes 8.6mg Take 8.6 Un [place] 8.6 mg 0-25 mg by ity of tablet 11:35: mouth in [place] [address] the Medical morning Branch and 8.6 mg in the evening. escitalopra 2021-07 Yes 10mg Take 10 mg Univers m oxalate 0-25 by mouth ity of 10 mg 11:35: in the [place] [address] morning. Medical Branch ondansetron 2021-07 Yes 4mg Take 4 mg U nivers 4 mg tablet 0-25 by mouth ity of 11:35: every 8 [place] [address] (eight) Medical hours as Branch needed for Nausea and Vomiting (N/V). aspirin 81 2021-07 Yes 81mg Take 81 mg U nivers mg EC 0-25 by mouth ity of tablet 11:35: in the [place] [address] morning. Medical Branch metoclopram 2021-07 Yes 10mg Take 10 mg Univers bebo HCl 10 0-25 by mouth ity o f mg tablet 11:35: every 8 [place] [address] (eight) Medical hours as Branch needed for Nausea and Vomiting (N/V). levothyroxi 2021-07 Yes 25ug Take 25 Uni vers ne 50 mcg 0-25 mcg by ity of tablet 11:35: mouth [place] [address] every Medical morning. Branch insulin 2021-07 Yes 30U inject 30 Unive rs glargine,hu 0-25 Units ity of m.rec.anlog 11:35: under the [place] (BASAGLAR 33 skin every Medi michelle KWIKPEN 12 Branch U-100 (twelve) INSULIN SC) hours. Hold PM dose if BG <150 omeprazole 2021-07 Yes 10mg Take 10 mg U nivers (PRILOSEC) 0-25 by mouth ity o f 2 mg/mL 11:35: daily. [place] oral 33 Medical suspension Branch folic 2021-07 Yes 1{tbl} Take 1 Univers acid/vit B 0-25 tablet by ity of complex and 11:35: mouth [facility] 33 daily. Medical (DIALYVITE Branch 800 ORAL) tamsulosin 2021-07 Yes .4mg Take 0.4 Uni vers 0.4 mg 24 0-25 mg by ity of hr capsule 11:35: mouth at [facility] as 33 bedtime. Medical Branch sennosides 2021-07 Yes 8.6mg Take 8.6 Un [place] 8.6 mg 0-25 mg by ity of tablet 11:35: mouth in [place] [address] the Medical morning Branch and 8.6 mg in the evening. escitalopra 2021-07 Yes 10mg Take 10 mg Univers m oxalate 0-25 by mouth ity of 10 mg 11:35: in the [place] [address] morning. Medical Branch ondansetron 2021-07 Yes 4mg Take 4 mg U nivers 4 mg tablet 0-25 by mouth ity of 11:35: every 8 [place] [address] (eight) Medical hours as Branch needed for Nausea and Vomiting (N/V). aspirin 81 2021-07 Yes 81mg Take 81 mg U nivers mg EC 0-25 by mouth ity of tablet 11:35: in the [place] [address] morning. Medical Branch metoclopram 2021-07 Yes 10mg Take 10 mg Univers bebo HCl 10 0-25 by mouth ity o f mg tablet 11:35: every 8 [place] [address] (eight) Medical hours as Branch needed for Nausea and Vomiting (N/V). levothyroxi 2021-07 Yes 25ug Take 25 Uni vers ne 50 mcg 0-25 mcg by ity of tablet 11:35: mouth [place] 33 every Medical morning. Branch insulin 2021-07 [...] ity o f 2 mg/mL 11:35: daily. [place] oral 33 Medical suspension Branch folic 2021-07 Yes 1{tbl} Take 1 Univers acid/vit B 0-25 tablet by ity of complex and 11:35: mouth [place] 33 daily. Medical (DIALYVITE Branch 800 ORAL) tamsulosin 2021-07 Yes .4mg Take 0.4 Uni vers 0.4 mg 24 0-25 mg by ity of hr capsule 11:35: mouth at [place] as 33 bedtime. Medical Branch sennosides 2021-07 Yes 8.6mg Take 8.6 Un [place] 8.6 mg 0-25 mg by ity of tablet 11:35: mouth in [place] [address] the Medical morning Branch and 8.6 mg in the evening. escitalopra 2021-07 Yes 10mg Take 10 mg Univers m oxalate 0-25 by mouth ity of 10 mg 11:35: in the [place] [address] morning. Medical Branch ondansetron 2021-07 Yes 4mg Take 4 mg U nivers 4 mg tablet 0-25 by mouth ity of 11:35: every 8 [place] [address] (eight) Medical hours as Branch needed for Nausea and Vomiting (N/V). aspirin 81 2021-07 Yes 81mg Take 81 mg U nivers mg EC 0-25 by mouth ity of tablet 11:35: in the [place] [address] morning. Medical Branch metoclopram 2021-07 Yes 10mg Take 10 mg Univers bebo HCl 10 0-25 by mouth ity o f mg tablet 11:35: every 8 [place] [address] (eight) Medical hours as Branch needed for Nausea and Vomiting (N/V). levothyroxi 2021-07 Yes 25ug Take 25 Uni vers ne 50 mcg 0-25 mcg by ity of tablet 11:35: mouth [place] [address] every Medical morning. Branch insulin 2021-07 Yes 30U inject 30 Unive rs glargine,hu 0-25 Units ity of m.rec.anlog 11:35: under the [place] (BASAGLAR 33 skin every Medi michelle KWIKPEN 12 Branch U-100 (twelve) INSULIN SC) hours. Hold PM dose if BG <150 omeprazole 2021-07 Yes 10mg Take 10 mg U nivers (PRILOSEC) 0-25 by mouth ity o f 2 mg/mL 11:35: daily. [place] oral 33 Medical suspension Branch folic 2021-07 Yes 1{tbl} Take 1 Univers acid/vit B 0-25 tablet by ity of complex and 11:35: mouth [facility] 33 daily. Medical (DIALYVITE Branch 800 ORAL) tamsulosin 2021-07 Yes .4mg Take 0.4 Uni vers 0.4 mg 24 0-25 mg by ity of hr capsule 11:35: mouth at [facility] as 33 bedtime. Medical Branch sennosides 2021-07 Yes 8.6mg Take 8.6 Un kraig 8.6 mg 0-25 mg by ity of tablet 11:35: mouth in [place] [address] the Medical morning Branch and 8.6 mg in the evening. escitalopra 2021-07 Yes 10mg Take 10 mg Univers m oxalate 0-25 by mouth ity of 10 mg 11:35: in the [place] [address] morning. Medical Branch ondansetron 2021-07 Yes 4mg Take 4 mg U nivers 4 mg tablet 0-25 by mouth ity of 11:35: every 8 [place] [address] (eight) Medical hours as Branch needed for Nausea and Vomiting (N/V). aspirin 81 2021-07 Yes 81mg Take 81 mg U nivers mg EC 0-25 by mouth ity of tablet 11:35: in the [place] [address] morning. Medical Branch metoclopram 2021-07 Yes 10mg Take 10 mg Univers bebo HCl 10 0-25 by mouth ity o f mg tablet 11:35: every 8 [place] [address] (eight) Medical hours as Branch needed for [...] by ity of tablet 11:35: mouth in [place] 33 the Medical morning Branch and 8.6 mg in the evening. escitalopra 2021-07 Yes 10mg Take 10 mg Univers m oxalate 0-25 by mouth ity of 10 mg 11:35: in the [facility] 33 morning. Medical Branch ondansetron 2021-07 Yes 4mg Take 4 mg U nivers 4 mg tablet 0-25 by mouth ity of 11:35: every 8 [place] [address] (eight) Medical hours as Branch needed for Nausea and Vomiting (N/V). aspirin 81 2021-07 Yes 81mg Take 81 mg U nivers mg EC 0-25 by mouth ity of tablet 11:35: in the [place] [address] morning. Medical Branch metoclopram 2021-07 Yes 10mg Take 10 mg Univers bebo HCl 10 0-25 by mouth ity o f mg tablet 11:35: every 8 [place] [address] (eight) Medical hours as Branch needed for Nausea and Vomiting (N/V). levothyroxi 2021-07 Yes 25ug Take 25 Uni vers ne 50 mcg 0-25 mcg by ity of tablet 11:35: mouth [place] [address] every Medical morning. Branch insulin 2021-07 Yes [...] by ity of complex and 11:35: mouth [place] C 33 daily. Medical (DIALYVITE Branch 800 ORAL) tamsulosin 2021-07 Yes .4mg Take 0.4 Uni vers 0.4 mg 24 0-25 mg by ity of hr capsule 11:35: mouth at [facility] as 33 bedtime. Medical Branch sennosides 2021-07 Yes 8.6mg Take 8.6 Un kraig 8.6 mg 0-25 mg by ity of tablet 11:35: mouth in [place] [address] the Medical morning Branch and 8.6 mg in the evening. escitalopra 2021-07 Yes 10mg Take 10 mg Univers m oxalate 0-25 by mouth ity of 10 mg 11:35: in the [place] [address] morning. Medical Branch ondansetron 2021-07 Yes 4mg Take 4 mg U nivers 4 mg tablet 0-25 by mouth ity of 11:35: every 8 [place] [address] (eight) Medical hours as Branch needed for Nausea and Vomiting (N/V). aspirin 81 2021-07 Yes 81mg Take 81 mg U nivers mg EC 0-25 by mouth ity of tablet 11:35: in the [place] [address] morning. Medical Branch metoclopram 2021-07 Yes 10mg Take 10 mg Univers bebo HCl 10 0-25 by mouth ity o f mg tablet 11:35: every 8 [place] [address] (eight) Medical hours as Branch needed for [...] by ity of tablet 11:35: mouth in [place] 33 the Medical morning Branch and 8.6 mg in the evening. escitalopra 2021-07 Yes 10mg Take 10 mg Univers m oxalate 0-25 by mouth ity of 10 mg 11:35: in the [facility] 33 morning. Medical Branch ondansetron 2021-07 Yes 4mg Take 4 mg U nivers 4 mg tablet 0-25 by mouth ity of 11:35: every 8 [place] [address] (eight) Medical hours as Branch needed for Nausea and Vomiting (N/V). aspirin 81 2021-07 Yes 81mg Take 81 mg U nivers mg EC 0-25 by mouth ity of tablet 11:35: in the [place] 33 morning. Medical Branch metoclopram 2021-07 Yes 10mg Take 10 mg Univers bebo HCl 10 0-25 by mouth ity o f mg tablet 11:35: every 8 [place] [address] (eight) Medical hours as Branch needed for [...] ity o f 2 mg/mL 11:35: daily. [place] oral 33 Medical suspension Branch folic 2021-07 Yes 1{tbl} Take 1 Univers acid/vit B 0-25 tablet by ity of complex and 11:35: mouth [place] C 33 daily. Medical (DIALYVITE Branch 800 ORAL) tamsulosin 2021-07 Yes .4mg Take 0.4 Uni vers 0.4 mg 24 0-25 mg by ity of hr capsule 11:35: mouth at [facility] as 33 bedtime. Medical Branch sennosides 2021-07 Yes 8.6mg Take 8.6 Un kraig 8.6 mg 0-25 mg by ity of tablet 11:35: mouth in [place] [address] the Medical morning Branch and 8.6 mg in the evening. escitalopra 2021-07 Yes 10mg Take 10 mg Univers m oxalate 0-25 by mouth ity of 10 mg 11:35: in the [facility] 33 morning. Medical Branch ondansetron 2021-07 Yes 4mg Take 4 mg U nivers 4 mg tablet 0-25 by mouth ity of 11:35: every 8 [place] [address] (eight) Medical hours as Branch needed for Nausea and Vomiting (N/V). aspirin 81 2021-07 Yes 81mg Take 81 mg U nivers mg EC 0-25 by mouth ity of tablet 11:35: in the [place] [address] morning. Medical Branch metoclopram 2021-07 Yes 10mg Take 10 mg Univers bebo HCl 10 0-25 by mouth ity o f mg tablet 11:35: every 8 [place] [address] (eight) Medical hours as Branch needed for [...] ity of hr capsule 11:35: mouth at [facility] as 33 bedtime. Medical Branch sennosides 2021-07 Yes 8.6mg Take 8.6 Un [place] 8.6 mg 0-25 mg by ity of tablet 11:35: mouth in [place] [address] the Medical morning Branch and 8.6 mg in the evening. escitalopra 2021-07 Yes 10mg Take 10 mg Univers m oxalate 0-25 by mouth ity of 10 mg 11:35: in the [place] [address] morning. Medical Branch ondansetron 2021-07 Yes 4mg Take 4 mg U nivers 4 mg tablet 0-25 by mouth ity of 11:35: every 8 [place] [address] (eight) Medical hours as Branch needed for Nausea and Vomiting (N/V). aspirin 81 2021-07 Yes 81mg Take 81 mg U nivers mg EC 0-25 by mouth ity of tablet 11:35: in the [place] [address] morning. Medical Branch metoclopram 2021-07 Yes 10mg Take 10 mg Univers bebo HCl 10 0-25 by mouth ity o f mg tablet 11:35: every 8 [place] [address] (eight) Medical hours as Branch needed for [...] daily. [place] oral 33 Medical suspension Branch isosorbide 2021-07 No 20mg Take 20 [...] ONCE, On [place] injection 4 00 :00 Wed Medical mg 04/27/22 at Branch 1500, For [...] Take 81 mg U nivers mg EC 9-28 by mouth ity of tablet 14:51: in [...] 10mg Take 10 mg Univers m oxalate 9 by mouth ity of 10 mg 14:51: in the [place] tablet 55 morning. Medical Branch ondansetron Yes 4mg Take 4 mg U nivers 4 mg tablet 928 by mouth ity of 14:51: every 8 [...] the [place] (BASAGLAR 55 skin every [facility] michelle KWIKPEN 12 Branch U-100 (twelve) INSULIN SC) hours. Hold PM dose if BG <150 omeprazole Yes 10mg Take 10 mg U nivers (PRILOSEC) 04-27 by mouth ity o f 2 mg/mL 14:51: daily. [place] oral 55 Medical suspension Branch Wound Yes [...] Medical DRESSING) Other Branch Pste (wound). Wound 2021- Yes 1{squir Apply 1 Univer s Dressings 9-28 t} Squirt to ity o f (TRIAD 14:51: area(s) as [place] WOUND 55 needed for Medical DRESSING) Other Branch Pste (wound). Wound 2021- Yes 1{squir Apply 1 Univer s Dressings [...] Yes 1{tbl} Take 1 Univers acid/vit B 9-28 tablet by ity of complex and 12:25: [...] mg tablet 04-27 by mouth ity of 12:25: every 8 [place] 38 (eight) Medical hours as Branch needed for Nausea and Vomiting (N/V). aspirin 81 Yes 81mg Take 81 mg U nivers mg EC - by mouth ity of tablet 12:25: in the [place] 38 morning. Medical Branch metoclopram Yes 10mg Take 10 mg Univers bebo HCl 10 9-28 by mouth ity o f mg tablet 12:25: every 8 [place] 38 (eight) Medical [...] 10mg Take 10 mg U nivers (PRILOSEC) - by mouth ity o f 2 mg/mL 12:25: daily. [place] oral 38 Medical suspension Branch Wound Yes 1{squir Apply 1 Univer s Dressings 04-27 t} Squirt to ity o f (TRIAD 12:25: area(s) as [place] WOUND 38 needed for Medical DRESSING) Other Branch Pste (wound). predniSONE Yes [id number] 40mg Take 2 Univers 20 mg 9-28 tablets by ity of tablet 00:00: mouth [place] 00 every Medical evening. Branch ciprofloxac Yes [id number] 750mg Take 1 Univers in HCl 750 9-28 tablet by ity of mg tablet 00:00: mouth [place] 00 every 12 Medical (twelve) Branch hours. budesonide 0 Yes [id number] .5mg Inhale 2 Univers 0.5 mg/2 mL 9-28 mL in the ity of nebulizer 00:00: morning [place] solution 00 and 2 mL Medical in the Branch evening. ipratropium 0 Yes [id number] 3mL Inhale 3 Univers -albuteroL 9-28 mL 3 ity of 0.5 mg-3 00:00: (three) [place] mg(2.5 mg 00 times Medical base)/3 mL daily as Branc h nebulizer needed for solution Wheezing. predniSONE 2021-0 Yes [id number] 40mg Take 2 Univers 20 mg 9-28 tablets by ity of tablet 00:00: mouth [place] 00 every Medical evening. Branch ciprofloxac 2021-0 Yes [id number] 750mg Take 1 Univers in HCl 750 9-28 tablet by ity of mg tablet 00:00: mouth [place] 00 every 12 Medical (twelve) Branch hours. budesonide 2021-0 Yes [id number] .5mg Inhale 2 Univers 0.5 mg/2 mL 9-28 mL in the ity of nebulizer 00:00: morning [place] solution 00 and 2 mL Medical in the Branch evening. ipratropium 2-0 Yes [id number] 3mL Inhale 3 Univers -albuteroL 9-28 mL 3 ity of 0.5 mg-3 00:00: (three) [place] mg(2.5 mg 00 times Medical base)/3 mL daily as Branc h nebulizer needed for solution Wheezing. predniSONE 2021-0 Yes [id number] 40mg Take 2 Univers 20 mg 9-28 tablets by ity of tablet 00:00: mouth [place] 00 every Medical evening. Branch ciprofloxac 2021-0 Yes [id number] 750mg Take 1 Univers in HCl 750 9-28 tablet by ity of mg tablet 00:00: mouth [place] 00 every 12 Medical (twelve) Branch hours. budesonide 2021-0 Yes [id number] .5mg Inhale 2 Univers 0.5 mg/2 mL 9-28 mL in the ity of nebulizer 00:00: morning [place] solution 00 and 2 mL Medical in the Branch evening. ipratropium 2-0 Yes [id number] 3mL Inhale 3 Univers -albuteroL 9-28 mL 3 ity of 0.5 mg-3 00:00: (three) [place] mg(2.5 mg 00 times Medical base)/3 mL daily as Branc h nebulizer needed for solution Wheezing. predniSONE 2021-0 Yes [id number] 40mg Take 2 Univers 20 mg 9-28 tablets by ity of tablet 00:00: mouth [place] 00 every Medical evening. Branch ciprofloxac 2021-0 Yes [id number] 750mg Take 1 Univers in HCl 750 9-28 tablet by ity of mg tablet 00:00: mouth [place] 00 every 12 Medical (twelve) Branch hours. budesonide 2021-0 Yes [id number] .5mg Inhale 2 Univers 0.5 mg/2 mL 9-28 mL in the ity of nebulizer 00:00: morning [place] solution 00 and 2 mL Medical in the Branch evening. ipratropium 2021-0 Yes [id number] 3mL Inhale 3 Univers -albuteroL 9-28 mL 3 ity of 0.5 mg-3 00:00: (three) [place] mg(2.5 mg 00 times Medical base)/3 mL daily as Branc h nebulizer needed for solution Wheezing. predniSONE 2021-0 Yes [id number] 40mg Take 2 Univers 20 mg 9-28 tablets by ity of tablet 00:00: mouth [place] 00 every Medical evening. Branch ciprofloxac 2021-0 Yes [id number] 750mg Take 1 Univers in HCl 750 9-28 tablet by ity of mg tablet 00:00: mouth [place] 00 every 12 Medical (twelve) Branch hours. budesonide 2021-0 Yes [id number] .5mg Inhale 2 Univers 0.5 mg/2 mL 9-28 mL in the ity of nebulizer 00:00: morning [place] solution 00 and 2 mL Medical in the Branch evening. ipratropium 2021-0 Yes [id number] 3mL Inhale 3 Univers -albuteroL 9-28 mL 3 ity of 0.5 mg-3 00:00: (three) [place] mg(2.5 mg 00 times Medical base)/3 mL daily as Branc h nebulizer needed for solution Wheezing. budesonide 2021-0 Yes [id number] .5mg Inhale 2 Univers 0.5 mg/2 mL 9-28 mL in the ity of nebulizer 00:00: morning [place] solution 00 and 2 mL Medical in the Branch evening. ipratropium 2-0 Yes [id number] 3mL Inhale 3 Univers -albuteroL 9-28 mL 3 ity of 0.5 mg-3 00:00: (three) [place] mg(2.5 mg 00 times Medical base)/3 mL daily as Branc h nebulizer needed for solution Wheezing. budesonide 2021-0 Yes [id number] .5mg Inhale 2 Univers 0.5 mg/2 mL 9-28 mL in the ity of nebulizer 00:00: morning [place] solution 00 and 2 mL Medical in the Branch evening. ipratropium 2021-0 Yes [id number] 3mL Inhale 3 Univers -albuteroL 9-28 mL 3 ity of 0.5 mg-3 00:00: (three) [place] mg(2.5 mg 00 times Medical base)/3 mL daily as Branc h nebulizer needed for solution Wheezing. budesonide 2021-0 Yes [id number] .5mg Inhale 2 Univers 0.5 mg/2 mL 9-28 mL in the ity of nebulizer 00:00: morning [place] solution 00 and 2 mL Medical in the Branch evening. ipratropium 2021-0 Yes [id number] 3mL Inhale 3 Univers -albuteroL 9-28 mL 3 ity of 0.5 mg-3 00:00: (three) [place] mg(2.5 mg 00 times Medical base)/3 mL daily as Branc h nebulizer needed for solution Wheezing. budesonide 2021-0 Yes [id number] .5mg Inhale 2 Univers 0.5 mg/2 mL 9-28 mL in the ity of nebulizer 00:00: morning [place] solution 00 and 2 mL Medical in the Branch evening. ipratropium 2021-0 Yes [id number] 3mL Inhale 3 Univers -albuteroL 9-28 mL 3 ity of 0.5 mg-3 00:00: (three) [place] mg(2.5 mg 00 times Medical base)/3 mL daily as Branc h nebulizer needed for solution Wheezing. budesonide 2021-0 Yes [id number] .5mg Inhale 2 Univers 0.5 mg/2 mL 9-28 mL in the ity of nebulizer 00:00: morning [place] solution 00 and 2 mL Medical in the Branch evening. ipratropium 2-0 Yes [id number] 3mL Inhale 3 Univers -albuteroL 9-28 mL 3 ity of 0.5 mg-3 00:00: (three) [place] mg(2.5 mg 00 times Medical base)/3 mL daily as Branc h nebulizer needed for solution Wheezing. budesonide 2-0 Yes [id number] .5mg Inhale 2 Univers 0.5 mg/2 mL 9-28 mL in the ity of nebulizer 00:00: morning [place] solution 00 and 2 mL Medical in the Branch evening. ipratropium 2021-0 Yes [id number] 3mL Inhale 3 Univers -albuteroL 9-28 mL 3 ity of 0.5 mg-3 00:00: (three) [place] mg(2.5 mg 00 times Medical base)/3 mL daily as Branc h nebulizer needed for solution Wheezing. budesonide 2021-0 Yes [id number] .5mg Inhale 2 Univers 0.5 mg/2 mL 9-28 mL in the ity of nebulizer 00:00: morning [place] solution 00 and 2 mL Medical in the Branch evening. ipratropium 2021-0 Yes [id number] 3mL Inhale 3 Univers -albuteroL 9-28 mL 3 ity of 0.5 mg-3 00:00: (three) [place] mg(2.5 mg 00 times Medical base)/3 mL daily as Branc h nebulizer needed for solution Wheezing. budesonide 2021-0 Yes [id number] .5mg Inhale 2 Univers 0.5 mg/2 mL 9-28 mL in the ity of nebulizer 00:00: morning [place] solution 00 and 2 mL Medical in the Branch evening. ipratropium 2021-0 Yes [id number] 3mL Inhale 3 Univers -albuteroL 9-28 mL 3 ity of 0.5 mg-3 00:00: (three) [place] mg(2.5 mg 00 times Medical base)/3 mL daily as Branc h nebulizer needed for solution Wheezing. budesonide 2021-0 Yes [id number] .5mg Inhale 2 Univers 0.5 mg/2 mL 9-28 mL in the ity of nebulizer 00:00: morning [place] solution 00 and 2 mL Medical in the Branch evening. ipratropium 2-0 Yes [id number] 3mL Inhale 3 Univers -albuteroL 9-28 mL 3 ity of 0.5 mg-3 00:00: (three) [place] mg(2.5 mg 00 times Medical base)/3 mL daily as Branc h nebulizer needed for solution Wheezing. budesonide 2021-0 Yes [id number] .5mg Inhale 2 Univers 0.5 mg/2 mL 9-28 mL in the ity of nebulizer 00:00: morning [place] solution 00 and 2 mL Medical in the Branch evening. ipratropium 2021-0 Yes [id number] 3mL Inhale 3 Univers -albuteroL 9-28 mL 3 ity of 0.5 mg-3 00:00: (three) [place] mg(2.5 mg 00 times Medical base)/3 mL daily as Branc h nebulizer needed for solution Wheezing. budesonide 2021-0 Yes [id number] .5mg Inhale 2 Univers 0.5 mg/2 mL 9-28 mL in the ity of nebulizer 00:00: morning [place] solution 00 and 2 mL Medical in the Branch evening. ipratropium 2021-0 Yes [id number] 3mL Inhale 3 Univers -albuteroL 9-28 mL 3 ity of 0.5 mg-3 00:00: (three) [place] mg(2.5 mg 00 times Medical base)/3 mL daily as Branc h nebulizer needed for solution Wheezing. budesonide 2021-0 Yes [id number] .5mg Inhale 2 Univers 0.5 mg/2 mL 9-28 mL in the ity of nebulizer 00:00: morning [place] solution 00 and 2 mL Medical in the Branch evening. ipratropium 2021-0 Yes [id number] 3mL Inhale 3 Univers -albuteroL 9-28 mL 3 ity of 0.5 mg-3 00:00: (three) [place] mg(2.5 mg 00 times Medical base)/3 mL daily as Branc h nebulizer needed for solution Wheezing. budesonide 2021-0 Yes [id number] .5mg Inhale 2 Univers 0.5 mg/2 mL 9-28 mL in the ity of nebulizer 00:00: morning [place] solution 00 and 2 mL Medical in the Branch evening. ipratropium 2-0 Yes [id number] 3mL Inhale 3 Univers -albuteroL 9-28 mL 3 ity of 0.5 mg-3 00:00: (three) [place] mg(2.5 mg 00 times Medical base)/3 mL daily as Branc h nebulizer needed for solution Wheezing. budesonide 2021-0 Yes [id number] .5mg Inhale 2 Univers 0.5 mg/2 mL 9-28 mL in the ity of nebulizer 00:00: morning [place] solution 00 and 2 mL Medical in the Branch evening. ipratropium Yes [id number] 3mL Inhale 3 Univers -albuteroL 9-28 mL 3 ity of 0.5 mg-3 00:00: (three) [place] mg(2.5 mg 00 times Medical base)/3 mL daily as Branc h nebulizer needed for solution Wheezing. budesonide Yes [id number] .5mg Inhale 2 Univers 0.5 mg/2 mL 9-28 mL in the ity of nebulizer 00:00: morning [place] solution 00 and 2 mL Medical in the Branch evening. ipratropium 0 Yes [id number] 3mL Inhale 3 Univers -albuteroL 9-28 mL 3 ity of 0.5 mg-3 00:00: (three) [place] mg(2.5 mg 00 times Medical base)/3 mL daily as Branc h nebulizer needed for solution Wheezing. budesonide Yes [id number] .5mg Inhale 2 Univers 0.5 mg/2 mL 9-28 mL in the ity of nebulizer 00:00: morning [place] solution 00 and 2 mL Medical in the Branch evening. ipratropium Yes [id number] 3mL Inhale 3 Univers -albuteroL 9-28 mL 3 ity of 0.5 mg-3 00:00: (three) [place] mg(2.5 mg 00 times Medical base)/3 mL daily as Branc h nebulizer needed for solution Wheezing. predniSONE 2021- No [id number] 40mg Take 2 Univers 20 mg 9-28 10-25 tablets by ity of tablet 00:00: 00:00 mouth [place] 00 :00 every Medical evening. [place] ciprofloxac 2021- No [id number] 750mg Take 1 Univers in HCl 750 9-28 10-25 tablet by ity of mg tablet 00:00: 00:00 mouth [place] 00 :00 every 12 Medical (twelve) Branch hours. predniSONE 2021- No [id number] 40mg Take 2 Univers 20 mg 9-28 10-25 tablets by ity of tablet 00:00: 00:00 mouth [place] 00 :00 every Medical evening. [place] ciprofloxac 2021- No [id number] 750mg Take 1 Univers in HCl 750 9-28 1025 tablet by ity of mg tablet 00:00: 00:00 mouth [place] 00 :00 every 12 Medical (twelve) Branch hours. bupivacaine 2021- No PRN, Unive rs (preserv 04-26 Starting ity of free) 13:55: 17:06 on Mon [place] (SENSORCAIN 00 :56 04/26/22 at Nc dical E MPF) 0.25 0855, Branch % (2.5 Until Mon mg/mL) 04/26/22 at injection 1206, Routine, Intra-op water for 2021- No PRN, Univers irrigation 04-26 Starting ity of irrigation 13:40: 17:06 on Mon [place] solution 00 :56 04/26/22 at Medic al 0840, Branch Until Mon04/26/22 at 1206, Routine, Intra-op NaCl 0.45% 2021- No 1000mL at 100 Un kraig (1/2NS) IV 04-26 mL/hr, ity of infusion 00:15: 14:34 1,000 mL, [place] as 1,000 mL 00 :19 IV Medical Infusion, Branch CONTINUOUS , Starting on 04/25/22 at 1915, Until Mon04/27/22 at 0934, Routine insulin Yes 5U 5 Units, Univer s lispro 25 Subcutaneo ity of (human) 23:00: , 5X [place] (HumaLOG 00 DAY, First Medic al U-100) dose on Branch injection 5 Sun Units 04/24/22 at 1800, Until Discontinu ed, Routine insulin Yes 5U 5 Units, Univer s lispro -25 Subcutaneo ity of (human) 23:00: , 5X [place] (HumaLOG 00 DAY, First Medic al U-100) dose on Branch injection 5 Sun Units 04/24/22 at 1800, Until Discontinu ed, Routine Sliding Yes Subcutaneo Univ ers Scale 04-24 us, Q4H, ity of Insulin - 01:00: First dose [place] Lispro 00 (after Medical (HumaLOG) + last Branch Fsbg modificati Testing on) on 04/23/22 at 2000, Until Discontinu ed, Routine insulin Yes 30U 30 Units, Unive rs glargine 9-25 Subcutaneo ity o f (LANTUS 01:00: us, Q12H, [place] U-100) 00 First dose Medical injection (after Branch 30 Units last modificati on) on 04/23/22 at 1999, Until Discontinu ed, Routine Sliding Yes Subcutaneo Univ ers Scale 9-25 us, Q4H, ity of Insulin - 01:00: First dose [place] Lispro 00 (after Medical (HumaLOG) + last Branch Fsbg modificati Testing on) on 04/23/22 at 1999, Until Discontinu ed, Routine insulin Yes 30U 30 Units, Unive rs glargine - Subcutaneo ity o f (LANTUS 01:00: us, Q12H, [place] U-100) 00 First dose Medical injection (after Branch 30 Units last modificati on) on 04/23/22 at 1999, Until Discontinu ed, Routine Sliding 2021- No Subcutaneo Uni vers Scale 04-23- us, Q6H, ity of Insulin-Reg 23:00: 00:15 First dose [place] ular + Fsbg 00 :16 (after Medica l Testing last Branch modificati on) on 04/23/22 at 1800, Until Discontinu ed, Routine traMADoL Yes 50mg 50 mg, Univers (ULTRAM) 9 Oral, ity of tablet 50 16:25: Q6HPRN, [place] mg 59 Starting Medical on Sat Branch 04/23/22 at 1125, Until Discontinu ed, Routine, Pain (scale 4-6) traMADoL Yes 50mg 50 mg, Univers (ULTRAM) 9-24 Oral, ity of tablet 50 16:25: Q6HPRN, [place] mg 59 Starting Medical on Sat Branch 04/23/22 at 1125, Until Discontinu ed, Routine, Pain (scale 4-6) Sliding 2021- No Subcutaneo Uni vers Scale 04-23-24 us, TID ity of Insulin - 13:00: 20:06 MEALS+HS, [place] Lispro 00 :47 First dose Medical (HumaLOG) + on [facility] Fsbg 04/23/22 at Testing 0800, Until Discontinu ed, Routine glucagon 2021-0 Yes 1mg 1 mg, Univers (GLUCAGEN 04-23 Intramuscu ity of DIAGNOSTIC 11:58: lar, PRN, [place] KIT) 32 Starting Medical injection 1 on [facility] 04/23/22 at 0658, Until Discontinu ed, JUMA, Blood Glucose < or = 70 mg/dL and patient is unable to swallow or has mental changes. dextrose 50 2021-0 Yes 25mL 25 mL, Univ ers % in water 04-23 Slow IV ity of (D50W) 11:58: Push, PRN, [place] injection 32 Starting Medica l 25 mL on [facility] 04/23/22 at 0658, Until Discontinu ed, JUMA, Blood Glucose < or = 70 mg/dL and patient is unable to swallow or has mental status changes. glucagon 2021-0 Yes 1mg 1 mg, Univers (GLUCAGEN 04-23 Intramuscu ity of DIAGNOSTIC 11:58: lar, PRN, [place] KIT) 32 Starting Medical injection 1 on [facility] 04/23/22 at 0658, Until Discontinu ed, JUMA, Blood Glucose < or = 70 mg/dL and patient is unable to swallow or has mental changes. dextrose 50 2021-0 Yes 25mL 25 mL, Univ ers % in water 04-23 Slow IV ity of (D50W) 11:58: Push, PRN, [place] injection 32 Starting Medica l 25 mL on [facility] 04/23/22 at 0658, Until Discontinu ed, JMUA, Blood Glucose < or = 70 mg/dL and patient is unable to swallow or has mental status changes. atorvastati 2021-0 Yes 20mg 20 mg, Univ ers n (LIPITOR) 9-24 Oral, QHS, it y of tablet 20 02:00: First dose [place] mg 00 on Mon Medical 04/22/22 at Branch 2100, Until Discontinu ed, Routine atorvastati 2021-0 Yes 20mg 20 mg, Univ ers n (LIPITOR) 9-24 Oral, QHS, it y of tablet 20 02:00: First dose [place] mg 00 on Mon Medical 04/22/22 at Branch 2100, Until Discontinu ed, Routine predniSONE 2021-0 Yes 40mg 40 mg, Unive rs (DELTASONE) 04-22 Oral, QPM, it y of tablet 40 22:00: First dose [place] mg 00 on [facility] Medical 04/22/22 at Branch 1700, Until Discontinu ed, Routine predniSONE 2021-0 Yes 40mg 40 mg, Unive rs (DELTASONE) 04-22 Oral, QPM, it y of tablet 40 22:00: First dose [place] mg 00 on Mon Medical 04/22/22 at Branch 1700, Until Discontinu ed, Routine furosemide 2021-2021- No [id number] 80mg 80 mg, Univers (LASIX) 04-22 Slow IV ity of injection 18:45: 19:23 Push, [place] 80 mg 00 :00 ONCE, 1 Medical dose, On Branch [facility] 04/22/22 at 1345, STAT escitalopra Yes 10mg 10 mg, Univ ers m oxalate 04-22 Oral, ity of (LEXAPRO) 14:00: DAILY, [place] tablet 10 00 First dose Medi michelle mg on Mon Branch 04/22/22 at 0900, Until Discontinu ed, Routine tamsulosin Yes .4mg 0.4 mg, Univ ers (FLOMAX) 04-22 Oral, ity of capsule 0.4 14:00: DAILY, [place] mg 00 First dose Medical on Mon Branch 04/22/22 at 0900, Until Discontinu ed, Routine escitalopra Yes 10mg 10 mg, Univ ers m oxalate 04-22 Oral, ity of (LEXAPRO) 14:00: DAILY, [place] tablet 10 00 First dose Medi michelle mg on Mon Branch 04/22/22 at 0900, Until Discontinu ed, Routine tamsulosin Yes .4mg 0.4 mg, Univ ers (FLOMAX) 04-22 Oral, ity of capsule 0.4 14:00: DAILY, [place] mg 00 First dose Medical on Fri Branch 04/22/22 at 0900, Until Discontinu ed, Routine sodium 2021-0 2021- No 4mL 4 mL, Univers chloride 7% 04-22 Inhalation i ty of (HYPER-SHAN) 14:00: 15:13 , DAILY, [place] nebulizer 00 :35 First dose Medi michelle solution 4 on Fri Branch mL 04/22/22 at 0900, Until Discontinu ed, Routine ceFEPIme 2021- No 1000mg 1,000 mg, U nivers (MAXIPIME) 04-2228 IV ity of 1,000 mg in 13:30: 15:23 [place], [place] NaCl 0.9% 00 :58 Q12H ABX, Medic [...] ity of human 13:30: 13:26 ONCE, 1 [place] (HUMULIN R) 00 :00 dose, On Medi [...] 2021- No Subcutaneo Uni vers Scale 04-22 us, TID ity of Insulin - 13:00: 11:59 MEALS, [place] Lispro 00 :04 First dose Medical (HumaLOG) + on Mon Branch Fsbg 04/22/22 at Testing 0800, Until Discontinu ed, Routine sodium 0 2021- No 30g 30 g, Univers polystyrene 04-22 Enteral, ity of sulfonate 13:00: 13:38 ONCE, 1 [place] (KAYEXALATE 00 :00 dose, On Medi michelle ) 15 Mon Branch gram/60 mL 04/22/22 at suspension 0800, 30 g Routine furosemide Yes 40mg 40 mg, Unive rs (LASIX) 04-22 Slow IV ity of injection 12:30: Push, [place] 40 mg 00 DAILY, Medical First dose Branch on Mon04/22/22 at 0730, Until Discontinu ed, Routine furosemide 2021-0 Yes 40mg 40 mg, Unive rs (LASIX) 04-22 Slow IV ity of injection 12:30: Push, [place] 40 mg 00 DAILY, Medical First dose Branch on Mon04/22/22 at 0730, Until Discontinu ed, Routine heparin 2021-0 Yes 5000U 5,000 Univers (porcine) 04-22 Units, ity of injection 11:00: [place]cutaneo [place] 5,000 Units 00 us, Q8H, Medi michelle First dose Branch on Mon04/22/22 at 0600, Until Discontinu ed, Routine levothyroxi Yes 25ug 25 mcg, Uni vers ne 04-22 Oral, ity of (SYNTHROID) 11:00: QAM-0600, [place] tablet 25 00 First dose Medi michelle mcg on Mon Branch 04/22/22 at 0600, Until Discontinu ed, Routine heparin 2021-0 Yes 5000U 5,000 Univers (porcine) 04-22 Units, ity of injection 11:00: [place]cutaneo [place] 5,000 Units 00 us, Q8H, Medi michelle First dose Branch on Mon04/22/22 at 0600, Until Discontinu ed, Routine levothyroxi 0 Yes 25ug 25 mcg, Uni vers ne 04-22 Oral, ity of (SYNTHROID) 11:00: QAM-0600, [place] tablet 25 00 First dose Medi michelle mcg on Mon Branch 04/22/22 at 0600, Until Discontinu ed, Routine piperacilli 2021-0 2021- No 3.375g 3.375 g, Univers n-tazobacta [...]
Durat ion of therapy: 72 hours methylpredn 2022-0 2022- No 125mg 125 mg, U nivers isolone sod 04-22 Intravenou i ty of succ 07:15: 07:24 s, ONCE, 1 [place] (SOLU-MEDRO 00 :00 dose, On Medi michelle L) Fri Branch injection 04/22/22 at 125 mg 0215, 2 mL budesonide 2022-0 Yes .5mg 0.5 mg, Univ ers (PULMICORT 04-22 Inhalation ity of RESPULE) 06:30: , BID, [place] nebulizer 00 First dose Medi michelle solution on Mon Branch 0.5 mg 04/22/22 at 0130, Until Discontinu ed, Routine ipratropium 2-0 Yes 3mL 3 mL, Unive rs -albuteroL 04-22 Inhalation ity of (DUONEB) 06:30: , QID, [place] 0.5 mg-3 00 First dose Medic al mg(2.5 mg on Mon Branch base)/3 mL 04/22/22 at nebulizer 0130, solution 3 Until mL Discontinu ed, Routine aspirin 2022-0 Yes 81mg 81 mg, Univers chewable 04-22 Oral, QAM ity of tablet 81 06:30: WITH [place] mg 00 BREAKFAST, Medical First dose Branch on Mon04/22/22 at 0130, Until Discontinu ed, Routine carvediloL 2-0 Yes 25mg 25 mg, Unive rs (COREG) [...] 00 First dose Medi michelle solution on Mon Branch 0.5 mg 04/22/22 at 0130, Until Discontinu ed, Routine ipratropium Yes 3mL 3 [facility], [facility] Inhalation ity of (DUONEB) 06:30: , QID, [place] 0.5 mg-3 00 First dose Medic al mg(2.5 mg on Mon Branch base)/3 mL 04/22/22 at nebulizer 0130, solution 3 Until mL Discontinu ed, Routine aspirin Yes 81mg 81 mg, Univers chewable 04-22 Oral, QAM ity of tablet 81 06:30: WITH [place] mg 00 BREAKFAST, Medical First dose Branch on Mon04/22/22 at 0130, Until Discontinu ed, Routine carvediloL Yes 25mg 25 mg, [facility] ([facility] 04-22 Oral, BID ity of tablet 25 06:30: MEALS, [place] mg 00 First dose Medical on Mon Branch 04/22/22 at 0130, Until Discontinu ed, Routine lactobacill Yes .5mg 0.5 mg, Uni vers us 04-22 Oral, BID, ity of acidophilus 06:30: First dose [place] tablet 0.5 00 on Mon Medical mg 04/22/22 at Branch 0130, Until Discontinu ed, Routine insulin 2021- No 20U 20 Units, [facility] ers glargine 04-22 Subcutaneo ity of (LANTUS 06:15: 20:03 us, Q12H, [place] U-100) 00 :17 First dose Medical injection on Mon Branch 20 Units 04/22/22 at 0115, Until Discontinu ed, Routine piperacilli 0 2021- No 3.375g 3.375 g, [facility] n-tazobacta 04-22 IV ity of m (ZOSYN) [...] mL, GT, l oral 16:52: Daily, 0 [place] suspension 00 Refill(s) insulin Yes 60 unit, Memori a isophane 8-16 SUB-Q, l (NPH) 100 16:51: Q8H, 0 Stephen n units/mL 00 Refill(s) human recombinant subcutaneou s suspension guaiFENesin Yes 400 mg = Me moria 8-16 20 mL, l 16:48: PEG, QID, Arnold 00 0 Refill(s) insulin No Notes: Memoria lispro 8-14 (Same as: l 02:08: Humalog) Buck 00 Roll in palms of hands gently; Do not shake vigorously . WASTE: F/P - Black; E - Municipal Trash Bin Stable for 28 days at room temperatur e. Expires in days from ____Date pneumococca No Notes: Isidro elisa l 23-valent 8-11 (Same as: l vaccine 19:00: Pneumovax Lo nn injectable 00 23) solution Refrigerat e sodium No 2,000 mL, Memori a chloride 8-10 0 ml/hr, l 0.9% 13:08: Infuse Buck (Priming 00 Over: 0 and hr, Route: Maintenance IV, 2,000, ) Drug form: INJ, PRN, Dosing Weight 91.5 kg, Start date: 03/09/22 8:08:00 CDT, Stop date: 03/17/22 20:07:00 CDT, For use by Dialysis nurse only, PRN Dialysis, 0 insulin No Notes: Memoria isophane 8-09 (Same as: l 21:00: Humulin N) Arnold 00 Roll in palms of hands gently; [...] emoria in 03-08 not l 16:00: refrigerat Arnold e carvedilol No Notes: Memor ia 03-06 Give with l 14:00: food. Buck (Same As: Coreg) hydrALAZINE No Notes: Isidro elisa 03-06 (Same as: l 10:50: Apresoline ) Push over 5 minutes metoprolol No Notes: Memor ia tartrate 03-06 (Same as: l 02:00: Lopressor) Prevacid No Notes: Memoria 03-05 Take 1 l 14:00: hour Arnold 00 before or 2 hours after meal; Expires in 14 days. Shake well before use. (Same as:Prevaci d) Compound ed Product - formulatio n not commercial ly available* * clopidogrel No Notes: Isidro elisa 8- (Same As: l 14:00: Plavix) Buck 00 escitalopra No Notes: Isidro elisa m 03-05 (Same as: l 14:00: Lexapro) Arnold 00 Levothroid No Notes: Memor ia 03-05 Take 1 l 14:00: hour Buck 00 before or 2 hours after meal; Enteral feeds may interefere with the absorption of this medication .(Same as:Levothr oid, Synthroid) Protonix No Notes: Memoria - Tablet l 14:00: should not Arnold 00 be chewed or crushed. (Same as: Protonix) senna No Notes: Memoria 03-05 (Same as: l 14:00: Senokot) amLODIPine No Notes: Memor ia 03-05 (Same as: l 14:00: Norvasc) finasteride No Notes: Isidro elisa 03-05 (Same as: l 14:00: Proscar) Buck 00 "Do Not Crush" Women of childbeari ng age should not touch or handle broken tablets Hazardous Drug Group 3:Reproduc tive risk Hazardous Drug -- Refer to safe handling procedure PPE Matrix heparin No Notes: Memoria 5000 06 porcine l units/mL 02:00: heparin Stephen n [...] procedure PPE Matrix aspirin No Notes: Memoria 805 Take with l 14:00: food. heparin No 4,000 Memoria 8-05 unit, 4 l 12:49: mL, Route: Arnold 00 IV Lock, Drug form: INJ, After Dialysis, Dosing Weight 91.5, kg, PRN Dialysis, Start date: 03/04/22 7:49:00 CDT, Duration: 30 day, Stop date: 04/03/22 7:48:00 CDT, 0 atorvastati No Notes: Isidro elisa n 03-04 (Same as: l 02:00: Lipitor) Arnold 00 guaiFENesin No Notes: Isidro elisa 03-04 (Same as: l 02:00: Robitussin ) Dextrose No 12.5 gm, Memor ia 50% Syringe 03-04 25 mL, l (D50W) 01:10: Route: Arnold 00 IVP, Drug Form: INJ, Dosing Weight 91.5, kg, PRN, PRN Blood Glucose Results, Start date: 03/03/22 20:10:00 CDT, Duration: 30 day, Stop date: 04/02/22 20:09:00 CDT, 0 glucagon No 1 mg, Memoria 03-04 Route: IM, l 01:10: Drug form: Arnold 00 PDR/INJ, PRN, Dosing Weight 91.5, kg, PRN Blood Glucose Results, Start date: 03/03/22 20:10:00 CDT, Duration: 30 day, Stop date: 04/02/22 20:09:00 CDT, 0 insulin No Notes: Memoria lispro 03-04 (Same as: l 01:10: Humalog) Roll in palms of hands gently; Do not shake vigorously . WASTE: F/P - Black; E - Municipal Trash Bin Stable for 28 days at room temperatur e. Expires in days from ____Date Merrem + No Notes: Memoria Sodium 8- Same as l Chloride 23:00: Merrem Arnold 0.9% IV 100 00 mL guaiFENesin No Notes: Isidro elisa 03-03 (Same as: l 22:47: Robitussin ) vancomycin No 2000 mg: Me moria + Sodium 03-03 infuse l Chloride 22:41: over 2.5 Lo nn 0.9% IV 500 00 hours For mL adult patients only: Round to nearest 250 mg per Medical Staff approval MEDICATION WASTE Product Size: 1000 mg Product Wasted: ___ mg Vancomycin No Notes: Memor ia Pharmacy 03-03 Vancomycin l Dosing 22:35: Pharmacy [place] Consult 00 Dosing Protocol PHARMAC Y USE ONLY Note: [...] 03-03 not crush l 14:00: or chew. Arnold 00 (Same As: Ecotrin) azithromyci No Notes: Isidro [...] QUEtiapine Yes 25 mg, PO, M emoria 03-03 PRN l 06:07: Agitation, Arnold 00 0 Refill(s) Protonix 40 No 40 mg = 1 M emoria mg oral 03-03 tab, PO, l enteric 06:06: Daily, # Stephen n coated 00 30 tab, 0 tablet Refill(s) dextrometho Yes 5 mL, PO, M emoria rphan-guaiF 03-03 Q6H, 0 l ENesin 15 06:04: Refill(s) Her muñoz mg-200 mg/5 00 mL oral liquid escitalopra Yes 10 mg = 1 M emoria m 10 mg - tab, PO, l oral tablet 06:01: Daily, # He rmann 00 30 tab, 0 Refill(s) clopidogrel Yes 75 mg = 1 M emoria 75 mg oral 03-03 tab, PO, l tablet 06:00: Daily, # Buck 00 30 tab, 0 Refill(s) epoetin Yes 2,000 Memoria coni-epbx 03-03 unit, IV, l 1999 06:00: qWeek, 0 Arnold units/mL 00 Refill(s) preservativ e-free injectable solution cloNIDine No 0.1 mg, Memor ia 03-03 PRN l 05:58: Elevated BP, 0 Refill(s) Dextrose No 12.5 gm, Memor ia 50% Syringe 03-03 25 mL, l (D50W) 04:51: Route: IVP, Drug Form: INJ, Dosing Weight 90.909, kg, PRN, PRN Blood Glucose Results, Start date: 03/02/22 23:51:00 CDT, Duration: 30 day, Stop date: 04/01/22 23:50:00 CDT, 0 glucagon No 1 mg, Memoria 03-03 Route: IM, l 04:51: Drug form: Arnold PDR/INJ, PRN, Dosing Weight 90.909, kg, PRN [...] elisa 03-03 (Same as: l 03:55: Zofran) 00 MEDICATION WASTE Product Size: 4 mg Product Wasted: ___ mg acetaminoph No Notes: Do M emoria en 03-03 not exceed l 03:55: 4 gm/day. Arnold 00 (Same as: Tylenol) acetaminoph No Notes: Do M emoria en 03-03 not exceed l 01:33: 4 gm/day. Arnold 00 (Same as: Tylenol) vancomycin No 2000 [...] 81 No Notes: Memor ia mg tablet, 8-04 Take with l chewable 01:31: food. senna 8.8 Yes 8.8 mg = 5 Me moria mg/5 mL - mL, GT, l oral syrup 20:24: Daily, 0 Her muñoz Refill(s) nystatin Yes 1 appl, Memori a topical 01-24 TOP, PRN, l 100,000 20:24: PRN For Buck units/g 00 Fungal powder Prophylaxi s, 0 Refill(s) ocular Yes 1 appl, Memoria lubricant 01-24 BOTH EYES, l 20:24: Q6H, 0 Refill(s) pantoprazol Yes 40 mg, Isidro elisa e 40 mg 01-24 IVP, Q12H, l intravenous 20:24: 0 Stephen n injection 00 Refill(s) piperacilli Yes 3.375 gm, M emoria n-tazobacta 01-24 IVPB, l m 20:24: ABXQ8H, 0 Refill(s) polyethylen Yes 17 gm, GT, Memoria e glycol 01-24 Daily, 0 l 3350 20:24: Refill(s) acetaminoph Yes 100.4 F, M emoria en 01-24 0 l 20:23: Refill(s) DuoNeb Yes 3 mL, NEB, Memor ia [...] GT, l oral tablet 20:23: Bedtime, 0 Arnold 00 Refill(s) bisacodyl Yes 10 mg = 1 Mem oria 10 mg 01-24 supp, MD, l rectal 20:23: Daily, PRN Lo nn suppository 00 Constipati on, 0 Refill(s) carvedilol Yes 25 mg = 1 Me moria 25 mg oral 6-27 tab, GT, l tablet 20:23: Q12H, 0 Buck 00 Refill(s) chlorhexidi Yes 0.018 gm = Memoria ne topical 6-27 15 mL, l 0.12% 20:23: Swab Buck liquid 00 Mouth, Q12H, 0 Refill(s) ferrous Yes 325 mg = 1 Isidro elisa sulfate 325 6-27 tab, GT, l mg oral 20:23: Daily, [place] enteric 00 dosed as coated ferrous tablet sulfate salt, 0 Refill(s) heparin Yes 5,000 unit Isidro elisa 5000 6-27 = 1 mL, l units/mL 20:23: SUB-Q, Arnold injectable 00 Q8H, 0 solution Refill(s) insulin [...] tab, GT, l tablet 20:22: Daily, 0 Arnold 00 Refill(s) hydrALAZINE Yes 50 mg = 1 M emoria 50 mg oral 6-27 tab, GT, l tablet 20:22: Q6H, 0 Buck 00 Refill(s) hydrALAZINE No Notes: Isidro elisa 6-27 (Same as: l 17:00: Apresoline Arnold 00 ) May interfere w/enteral feedings Take With Food Zosyn No Notes: Memoria 6-27 (Same as: l 15:00: Zosyn) Arnold 00 Dosing based on Piperacill in component MEDICATION WASTE Product Size: 3375 mg Product Wasted: ___ mg ferrous No Notes: Memoria sulfate 01-24 Give with l 15:00: food. "Do Not Crush" aspirin No Notes: Do Memor ia 01-23 not crush l 21:58: or chew. (Same As: Ecotrin) heparin No Notes: Memoria 5000 01-23 porcine l units/mL 21:00: heparin Stephen n injectable 00 solution Omnipaque No 60 mL, Memori a 350 mg/mL 01-23 Route: l 20:43: IVP, Drug Form: SOLN, Dosing Weight 93.5, kg, ONCALL, STAT, Start date: 01/23/22 15:43:00 CDT, Duration: 1 doses or times, Dose = 2.2ml/kg, Max dose = 100ml -- "To be infused by Radiology Staff ONLY" Dextrose No 12.5 gm, Memor ia 50% Syringe 01-23 25 mL, l (D50W) 18:40: Route: IVP, Drug Form: INJ, Dosing Weight 93.5, kg, PRN, PRN Blood Glucose Results, Start date: 01/23/22 13:40:00 CDT, Duration: 30 day, Stop date: 02/22/22 13:39:00 CDT, 0 glucagon No 1 mg, Memoria 01-23 Route: IM, l 18:40: Drug form: PDR/INJ, PRN, Dosing Weight 93.5, kg, PRN [...] Memoria 01-22 Same as: l 17:29: Versed Arnold 00 fentaNYL - No Notes: Memor ia one time 01-22 (Same as: l ICU bolus 17:29: Sublimaze) He rmann dose 00 Preservati ve free. lidocaine No Notes: Memori a 1% 25 Preservati l 17:29: ve free. Arnold 00 (Same as: Xylocaine MPF) Dextrose No 12.5 gm, Memor ia 50% Syringe 25 25 mL, l (D50W) 16:14: Route: Arnold 00 IVP, Drug Form: INJ, Dosing Weight 93.5, kg, PRN, PRN Blood Glucose Results, Start date: 01/22/22 11:14:00 CDT, Duration: 30 day, Stop date: 02/21/22 11:13:00 CDT, 0 glucagon No 1 mg, Memoria 01-22 Route: IM, l 16:14: Drug form: Buck 00 PDR/INJ, PRN, Dosing Weight 93.5, kg, PRN Blood Glucose Results, Start date: 01/22/22 11:14:00 CDT, Duration: 30 day, Stop date: 02/21/22 11:13:00 CDT, 0 Insulin No Notes: Memoria regular 25 (Same as: l 16:14: Humulin R) Buck 00 Roll in palms of hands gently; Do not shake vigorously . WASTE: F/P - Black; E - Municipal Trash Bin Stable for 31 days at room temperatur e Expires in days from ____Date insulin No Notes: Memoria isophane-[employer] FIREARMS 25 (Same as: l H 16:11: Humulin N) Arnold Roll in palms of hands gently; Do [...] polyethylen No Notes: Isidro elisa e glycol 6-24 Dissolve l 3350 14:00: in 8 oz of water or juice. (Same as: Miralax) senna No Notes: Memoria 6-24 (Same as: l 14:00: Senokot) Buck 00 insulin No Notes: Memoria isophane-in 01-20 (Same as: l sulin 21:00: Humulin Buck regular 00 70/30) 70/30 Roll in palms of hands gently; Do not shake vigorously . WASTE: F/P - Black; E - Municipal Trash Bin Stable for 31 days at room temperatur e. Expires in days from ____Date fluconazole No Notes: Isidro elisa 6-23 (Same as: l 20:00: Diflucan) Do not refrigerat e Hazardous Drug Group 3:Reproduc tive risk Hazardous Drug -- Refer to safe handling procedure PPE Matrix acetaminoph No Notes: Max Memoria en - acetaminop l 17:41: hen = Arnold 00 4000mg/day (4 gm/day). (Same as: Tylenol) aspirin No 10 kg; Memoria 6-23 Low-dose, l 14:00: antiplatel Arnold 00 et effects; Pediatric Dosing Brilinta No 90 mg, Memoria (ticagrelor 01-20 Route: PO, l ) 02:00: Drug form: Arnold 00 TAB, Q12H, Dosing Weight 93.5, kg, Start date: 01/19/22 21:00:00 CDT, Duration: 30 day, Stop date: 02/18/22 9:00:00 CDT pantoprazol No Notes: For Memoria e 01-20 IV push l 02:00: reconstitu te with 10 ml 0.9% sodium chloride and push over 2 minutes. (Same as: Protonix) fluconazole No Notes: Isidro elisa 01-19 (Same as: l 19:29: Diflucan) Hazardous Drug [...] 01-19 Route: l 14:11: NEB, Drug form: EVER, RQ12H, Dosing Weight 93.5, kg, Start date: [...] ONLY! Saline No Notes: Memoria Flush 0.9% 6-22 (Same as: l 14:00: BD Arnold 00 Posiflush) chlorhexidi No Notes: Isidro elisa ne topical 6-22 (Same As: l 0.12% 14:00: Peridex) Buck liquid 00 ocular No Notes: Memoria lubricant 6-22 (Same as: l 11:00: Lacri-Lube Arnold 00 , Puralube, Duratears Naturale, Artificial Tears, and Tears Again ) chlorhexidi No Notes: Isidro elisa ne topical 6-22 (Same As: l 0.12% 09:54: Peridex) Arnold liquid 00 nystatin No Notes: Memoria topical 6-22 (Same l 100,000 04:01: as:Mycosta Herm bhavin units/g 00 tin, powder Nilstat) For external use only. Saline No Notes: Memoria Flush 0.9% 6-22 (Same as: l 04:01: BD Arnold 00 Posiflush) Heparin No Route: IV, Isidro elisa Lock Flush -21 Q24H, l 15:00: Dosing Arnold 00 Weight 93.5, kg, Start date: 01/18/22 10:00:00 CDT, Duration: 30 day, Stop date: 02/16/22 10:00:00 CDT EPINEPHrine No Notes: Isidro elisa -lidocaine -21 (Same as: l 1:100,000-1 12:33: Xylocaine H ermann % 00 w/Epinephr injectable ine) solution insulin No Notes: Memoria isophane-[employer] FIREARMS -21 (Same as: l H 05:08: Humulin N) Arnold 00 Roll in palms of hands gently; Do not shake vigorously . WASTE: F/P - Black; E - Municipal Trash Bin Stable for 31 days at room temperatur e Expires in days from ____Date cefepime No Notes: Memoria 6-21 (Same As: l 05:00: Maxipime) Buck 00 [...] elisa 01-16 (Same as: l 13:00: Apresoline Buck 00 ) May interfere w/enteral feedings Take With Food insulin No Notes: Memoria isophane-in 01-16 (Same as: l sulin 11:00: Humulin Arnold regular 00 70/30) 70/30 Roll in palms of hands gently; Do not shake vigorously . WASTE: F/P - Black; E - Municipal Trash Bin Stable for 31 days at room temperatur e. Expires in days from ____Date hydrALAZINE No Notes: Isidro elisa 01-15 (Same as: l 21:00: Apresoline Arnold 00 ) May interfere w/enteral feedings Take With Food. insulin No Notes: Memoria isophane-in 01-15 (Same as: l sulin 17:00: Humulin Arnold regular 00 70/30) 70/30 Roll in palms of hands gently; Do not shake vigorously . WASTE: F/P - Black; E - Municipal Trash Bin Stable for 31 days at room temperatur e. Expires in days from ____Date silver No Notes: Memoria nitrate 01-15 WASTE: F/P l topical 14:35: - Black; E Herm bhavin 00 - Municipal Trash Bin hydrALAZINE No Notes: Isidro elisa 6-18 (Same as: l 14:34: Apresoline Buck 00 ) May interfere w/enteral feedings Take With Food. silver No Notes: Memoria nitrate 01-14 WASTE: F/P l topical 15:44: - Black; E Herm bhavin stick 00 - Municipal Trash Bin insulin No Notes: Memoria isophane-in 01-14 (Same as: l sulin 11:00: Humulin Arnold regular 00 70/30) 70/30 Roll in palms [...] pkt 01-13 (Same as: l 21:00: Beneprotei Arnold 00 n) silver No 10 stick, Memori a nitrate 01-13 Route: l topical 19:44: TOP, ONCE, Herm bhavin stick 00 Drug form: STIC, Start date: 01/13/22 14:44:00 CDT, Stop date: 01/13/22 14:44:00 CDT, 0 Dextrose No 25 mL, Memoria 50% Syringe 01-13 Route: l (D50W) 14:13: IVP, Buck 00 Dosing Weight 93.5, kg, PRN, PRN Blood Glucose Results, Start date: 01/13/22 9:13:00 CDT, Duration: 30 day, Stop date: 02/12/22 9:12:00 CDT glucagon No 1 mg, Memoria 6-16 Route: IM, l 14:13: PRN, Dosing Weight 93.5, kg, PRN Blood Glucose Results, Start date: 01/13/22 9:13:00 CDT, Duration: 30 day, Stop date: 02/12/22 9:12:00 CDT insulin 2021-0 No 3 unit, Memoria lispro 01-13 Route: l 14:13: SUB-Q, Sliding Scale, Dosing Weight 93.5, kg, PRN Blood Glucose Results, Start date: 01/13/22 9:13:00 CDT, Duration: 30 day, Stop date: 02/12/22 9:12:00 CDT Dextrose 2021-0 No 12.5 gm, Memor ia 50% Syringe - 25 mL, l (D50W) 14:09: Route: IVP, Drug Form: INJ, Dosing Weight 93.5, kg, PRN, PRN Blood Glucose Results, Start date: 01/13/22 9:09:00 CDT, Duration: 30 day, Stop date: 02/12/22 9:08:00 CDT, 0 glucagon No 1 mg, Memoria - Route: IM, l 14:09: Drug form: PDR/INJ, PRN, Dosing Weight 93.5, kg, PRN Blood Glucose Results, Start date: 01/13/22 9:09:00 CDT, Duration: 30 day, Stop date: 02/12/22 9:08:00 CDT, 0 Insulin 2021-0 No Notes: Memoria regular -16 (Same as: l 14:09: Humulin R) Roll [...] Bin famotidine No 20 mg, Memor ia -16 Route: GT, l 02:00: Drug form: Buck 00 TAB, Q12H, Dosing Weight 93.5, kg, Start date: 01/12/22 21:00:00 CDT, Duration: 30 day, Stop date: 02/11/22 9:00:00 CDT chlorhexidi No Notes: Isidro elisa ne topical 6-16 (Same As: l 0.12% 02:00: Peridex) Arnold liquid 00 fentaNYL No 125 Memoria 6-15 microgram, l 21:17: 2.5 mL, Buck Route: IV, Drug form: INJ, ONCE, Dosing Weight 93.5, kg, Start date: 01/12/22 16:17:00 CDT, Stop date: 01/12/22 16:17:00 CDT, 0 midazolam No 3 mg, 3 Memor ia 6-15 mL, Route: l 21:17: IV, Drug form: SOLN, ONCE, Dosing Weight 93.5, kg, Start date: 01/12/22 16:17:00 CDT, Stop date: 01/12/22 16:17:00 CDT, 0 ocular No Notes: Memoria lubricant 6-15 (Same as: l 17:00: Lacri-Lube Arnold 00 , Puralube, Duratears Naturale, Artificial Tears, and Tears Again ) fentaNYL No Notes: Memoria 6-15 (Same as: l 16:14: Sublimaze) Arnold 00 Preservati ve free. Versed No Notes: Memoria 6-15 Same as: l 16:14: Versed Arnold 00 lidocaine No Notes: Memori a 1% 6-15 Preservati l 16:14: ve free. Arnold 00 (Same as: Xylocaine MPF) Sodium No [...] 6-15 (Same As: l 0.12% 14:08: Peridex) Arnold liquid 00 Dextrose No 12.5 gm, Memor ia 50% Syringe 6-15 25 mL, l (D50W) 14:04: Route: Arnold 00 IVP, Drug Form: INJ, Dosing Weight 93.5, kg, PRN, PRN Blood Glucose Results, Start date: 01/12/22 9:04:00 CDT, Duration: 30 day, Stop date: 02/11/22 9:03:00 CDT, 0 glucagon No 1 mg, Memoria 6-15 Route: IM, l 14:04: Drug form: Arnold 00 PDR/INJ, PRN, Dosing Weight 93.5, kg, PRN Blood Glucose Results, Start date: 01/12/22 9:04:00 CDT, Duration: 30 day, Stop date: 02/11/22 9:03:00 CDT, 0 Insulin No Notes: Memoria regular 6-15 (Same as: l 14:04: Humulin R) Buck 00 Roll in palms of hands gently; Do not shake vigorously . WASTE: F/P - Black; E - Municipal Trash Bin Stable for 31 days at room temperatur e Expires in days from ____Date Insulin No Notes: Memoria regular 6-14 (Same as: l 15:53: Humulin R) Arnold 00 Roll in palms of hands gently; [...] Pharmacy 01-11 Vancomycin l Dosing 07:39: Pharmacy Arnold Consult 16 Dosing Protocol PHARMAC Y USE ONLY Note: This is not a medication order. This is a consultati on order. cefepime + No Notes: Memor ia sterile 01-11 (Same As: l water 10 mL 06:00: Maxipime) H ermann 00 MEDICATION WASTE Product Size: 1000 mg Product Wasted: ___ mg hydrALAZINE No Notes: Isidro elisa - (Same as: l 13:00: Apresoline Buck 00 ) May interfere w/enteral feedings Take With Food cefTRIAXone No Notes: Isidro elisa + sterile 01-09 (Same As: l water 20 mL 17:00: Rocephin). Arnold 00 Use with 100 mL NS and infuse over 30 min MEDICATION WASTE Product Size: 2000 mg Product Wasted: ___ mg insulin No Notes: Memoria isophane-in 01-09 (Same as: l sulin 17:00: Humulin Buck regular 00 70/30) 70/30 Roll in palms of hands gently; Do not shake vigorously . WASTE: F/P - Black; E - Municipal Trash Bin Stable for 31 days at room temperatur e. Expires in days from ____Date Dextrose No 12.5 gm, Memor ia 50% Syringe 01-09 25 mL, l (D50W) 16:39: Route: IVP, Drug Form: INJ, Dosing Weight 93.5, [...] . WASTE: F/P - Black; E - Who What Wear Trash Bin Stable for 31 days at room temperatur e Expires in days from ____Date potassium No Notes: Memori a chloride 20 01-09 (Same as: l mEq/15 mL 16:35: Potassium Her muñoz oral liquid 00 Chloride) (KCL) acetaminoph No Notes: Max Memoria en 01-09 acetaminop l 06:34: hen = 4000mg/day (4 gm/day). (Same as: Tylenol) sugammadex No Route: IV, M emoria (ANES) 01-08 Drug form: l 17:45: SOLN, ONCE, Stop date: 01/08/22 12:45:00 CDT phenylephri No Route: IV, Memoria ne (ANES) 01-08 Drug form: l 17:30: INJ, ONCE, Stop date: 01/08/22 12:30:00 CDT lidocaine No Route: IV, Me moria (ANES) 01-08 Drug form: l 17:25: INJ, ONCE, Stop date: 01/08/22 12:25:00 CDT propofol No Route: IV, Mem oria (ANES) - Drug form: l 17:25: INJ, ONCE, Stop date: 01/08/22 12:25:00 CDT rocuronium No Route: IV, M emoria (ANES) - Drug form: l 17:25: INJ, ONCE, Stop date: 01/08/22 12:25:00 CDT fentaNYL No Route: IV, Mem oria (ANES) - Drug form: l 17:25: INJ, ONCE, Stop date: 01/08/22 12:25:00 CDT Protonix No 40 mg, Memoria 01-08 Route: l 17:00: IVP, Drug form: INJ, Daily, Dosing Weight 93.5, kg, Start date: 01/08/22 12:00:00 CDT, Duration: 30 day, Stop date: 02/07/22 9:00:00 CDT, 0 Lactated No Route: IV, Mem oria Ringers 01-08 Total l Injection 16:31: Volume: Lo nn IV () 00 1,000, 1000 mL Start date: 01/08/22 [...] ia 6-10 saline for l 15:21: irrigation Buck 00 (1L bottle) 100 mL, mineral oil 100 mL, glycerine 100 mL. Dispense (300 ml) in 1L NS bottle enalaprilat No 0.625 mg, M emoria 6-10 Route: IV, l 15:18: Q6H, Dosing Weight 93.5, kg, PRN Hypertensi on, Start date: 01/07/22 10:18:00 CDT, Duration: 30 day, Stop date: 02/06/22 10:17:00 CDT polyethylen No Notes: Isidro elisa e glycol 6-10 Dissolve l 3350 02:00: in 8 oz of water or juice. (Same as: Miralax) fentaNYL No Notes: Memoria 6-09 (Same as: l 22:05: Sublimaze) Preservati ve free. fentaNYL No 50 kg Memoria 6-09 l 21:54: fentaNYL No Notes: Memoria 6-09 (Same as: l 20:14: Sublimaze) Preservati ve free. Versed No 2 mg, 2 Memoria 6-09 mL, Route: l 20:14: IVP, Drug form: SOLN, ONCE, Dosing Weight 93.5, kg, Priority: Routine, Start date: 01/06/22 15:14:00 CDT, Stop date: 01/06/22 15:14:00 CDT, 0 etomidate No 20 mg, Memori a 6-09 Route: IV, l 20:14: ONCE, Dosing Weight 93.5, kg, Priority: Routine, Start date: 01/06/22 15:14:00 CDT, Stop date: 01/06/22 15:14:00 CDT rocuronium No Notes: Memor ia 01-06 (Same as: l 20:14: Zemuron) Buck 00 magnesium No Notes: Memori a citrate 01-06 (Same as: l 1.745 g/30 15:58: Citrate of H ermann mL oral 00 Magnesia) liquid Concentrat ion: 1.745 gm / 30 mL bisacodyl No Notes: Memori a 01-06 (Same As: l 15:58: Dulcolax, Arnold 00 Bisco-Lax) hydrALAZINE No Notes: Isidro elisa 01-06 (Same as: l 15:55: Apresoline [place] ) sugammadex No Route: IV, Reji emoria (ANES) 01-06 Drug form: l 14:48: SOLN, Arnold 00 ONCE, Stop date: 01/06/22 9:48:00 CDT Sodium No 1,000 mL, Memori a Chloride 01-06 Rate: 100 l 0.9% IV 14:41: ml/hr, Arnold 1,000 mL 00 Infuse over: 10 hr, Route: IV, Dosing Weight 93.5 kg, Total Volume: 1,000, Start date: 01/06/22 9:41:00 CDT, Duration: 30 day, Stop date: 02/05/22 9:40:00 CDT, BSA: 2.19 m2, 0 Omnipaque 2021-0 No 150 ml, Memor ia 350 01-06 Route: l 14:29: INTRAARTER [place] 00 IAL, Dosing Weight 93.5, kg, ONCE, Start date: 01/06/22 9:29:00 CDT, Stop date: 01/06/22 9:29:00 CDT Omnipaque 2-0 No 150 ml, Memor ia 350 01-06 Route: l 14:14: INTRAARTER [place] 00 IAL, Dosing Weight 93.5, kg, ONCE, Start date: 01/06/22 9:14:00 CDT, Stop date: 01/06/22 9:14:00 CDT rocuronium No Route: IV, Reji emoria (ANES) 01-06 Drug form: l 14:13: INJ, ONCE, Buck 00 Stop date: 01/06/22 9:13:00 CDT amLODIPine No Notes: Memor ia 6- (Same as: l 14:00: Norvasc) norepinephr No Route: IV, Memoria ine (ANES) 01-06 Drug form: l 10 13:50: INJ, Start microgram 00 date: 01/06/22 8:50:00 CDT, Stop date: 01/06/22 9:50:00 CDT Sodium No Route: IV, Memor ia Chloride 01-06 Total l 0.9% IV 13:40: Volume: Arnold (ANES) 1000 00 1,000, mL Start date: 01/06/22 8:40:00 CDT, Stop date: 01/06/22 9:40:00 CDT potassium No Notes: Memori a chloride - (Same as: l 09:00: KCL) 10 mEq/100ml product recommende d for peripheral line administra tion. Infuse no faster than 10 mEq/hr if given peripheral ly. potassium No 40 mEq, Memor ia chloride 01-06 Route: IV, l 08:24: ONCE, Dosing Weight [...] 14:00: food. cefepime No 1 gm, Memoria 6- Route: IV, l 13:00: [id number], Dosing Weight 93.5, kg, Start date: 01/05/22 8:00:00 CDT, Duration: 10 day, Stop date: 01/14/22 8:00:00 CDT, (CrCl 10 - 29 mL/min), ABX Indication : Pneumonia vancomycin No 1,402.5 Isidro elisa -08 mg, Route: l 13:00: IVPB, Drug form: INJ, [id number], Dosing Weight 93.5, kg, Start date: 01/05/22 8:00:00 CDT, Duration: 10 day, Stop date: 01/14/22 20:00:00 CDT, ABX Indication : Pneumonia cefepime + No Notes: Memor ia sterile 01-05 (Same As: l water 10 mL 13:00: Maxipime) H MEDICATION WASTE Product Size: 1000 mg Product [...] Pharmacy 01-05 Vancomycin l Dosing 12:08: Pharmacy Buck Consult 55 Dosing Protocol PHARMAC Y USE ONLY Note: This is not a medication order. This is a consultati on order. Insulin No Notes: Memoria regular 100 01-05 Final l unit + 06:51: Concentrat Lo nn 00 ion 1unit/1ml; Total volume = 100 mL WASTE: F/P - Black; E - Municipal Trash Bin Dextrose No 6.25 gm, Memor ia 50% Syringe 01-05 12.5 mL, l (D50W) 06:51: Route: Arnold 00 IVP, Drug Form: INJ, Dosing Weight 93.5, kg, PRN, PRN Abnormal Lab Result, Start date: 01/05/22 1:51:00 CDT, Duration: 30 day, Stop date: 02/04/22 1:50:00 CDT, 0 pantoprazol No 40 mg, Isidro elisa e 01-05 Route: NG, l 02:00: Drug form: Buck 00 GRAN/REC, Q12H, Dosing Weight 93.5, kg, Start date: 01/04/22 21:00:00 CDT, Duration: 30 day, Stop date: 02/03/22 9:00:00 CDT Prevacid No Notes: Memoria - Take 1 l 02:00: hour [place] 00 before or 2 hours after meal; Expires in 14 days. Shake well before use. (Same as:Prevaci d) Compound ed Product - formulatio n not commercial ly available* * acetaminoph No Notes: Do M emoria en 01-04 not exceed l 17:43: 4 gm/day. Buck 00 (Same as: Tylenol) insulin No Notes: Memoria isophane-in 01-04 (Same as: l sulin 17:00: Humulin Arnold regular ) 70/30 Roll in palms of hands gently; Do not shake vigorously . WASTE: F/P - Black; E - Municipal Trash Bin Stable for 31 days at room temperatur e. Expires in days from ____Date insulin No Notes: Memoria isophane-in 01-04 (Same as: l sulin 04:00: Humulin Buck regular ) 70/30 Roll in palms of hands gently; Do not shake vigorously . WASTE: F/P - Black; E - Municipal Trash Bin Stable for 31 days at room temperatur e. Expires in days from ____Date pantoprazol No Notes: For Memoria e 01-04 IV push l 02:00: reconstitu Arnold 00 te with 10 ml 0.9% sodium chloride and push over 2 minutes. (Same as: Protonix) insulin No Notes: Memoria isophane-in 01-03 (Same as: l sulin 17:00: Humulin [place] regular ) 70/30 Roll in palms of hands gently; Do not shake vigorously . WASTE: F/P - Black; E - Municipal Trash Bin Stable for 31 days at room temperatur e. Expires in days from ____Date hydrALAZINE No Notes: Isidro elisa 6-06 (Same as: l 09:10: Apresoline ) Push over 5 minutes insulin No 15 unit, Katyori a isophane-in 01-03 Route: l sulin 05:00: SUB-Q, Arnold regular Drug form: 70/30 SUSP, Q8H, Dosing Weight 103.182, kg, Start date: 01/03/22 0:00:00 CDT, Duration: 30 day, Stop date: 02/01/22 16:00:00 CDT, 0 docusate No Notes: Memoria 6-06 (Same as: l 02:00: Colace) senna No Notes: Memoria 6-06 (Same as: l 02:00: Senokot) chlorhexidi No Notes: Isidro elisa ne topical 6-06 (Same As: l 0.12% 00:00: Peridex) Buck liquid 00 ocular No Notes: Memoria lubricant 6-05 (Same as: l 23:00: Lacri-Lube , Puralube, Duratears Naturale, Artificial Tears, and Tears Again ) heparin No Notes: Memoria additive 6-05 Total l 25,000 unit 22:04: Concentrat [14 00 ion = 50 unit/kg/hr] unit/ ml + Premix Total Diluent volume = Sodium 500 ml Chloride Send Med 0.45% 500 Request 2 mL hours prior to next bag insulin No Notes: Memoria isophane-[employer] 6-05 (Same as: l H 22:00: Humulin [...] S No Notes: Memori a PH 7.4 - (Same as: l 1,000 mL 21:52: Isolyte S Herm bhavin 00 PH7.4, Normosol-R PH 7.4, Plasma-Lyt e A ) Dextrose No 12.5 gm, Memor ia 50% Syringe 01-02 25 mL, l (D50W) 21:44: Route: IVP, Drug Form: INJ, Dosing Weight 103.182, kg, PRN, PRN Blood Glucose Results, Start date: 01/02/22 16:44:00 CDT, Duration: 30 day, Stop date: 02/01/22 16:43:00 CDT, 0 glucagon No 1 mg, Memoria 01-02 Route: IM, l 21:44: Drug form: PDR/INJ, PRN, Dosing Weight 103.182, [...] 6-05 25 mL, l (D50W) 21:13: Route: Arnold 00 IVP, Drug Form: INJ, Dosing Weight 103.182, kg, PRN, PRN Blood Glucose Results, Start date: 01/02/22 16:13:00 CDT, Duration: 30 day, Stop date: 02/01/22 16:12:00 CDT, 0 glucagon No 1 mg, Memoria 6-05 Route: IM, l 21:13: Drug form: Buck 00 PDR/INJ, PRN, Dosing Weight 103.182, kg, PRN Blood Glucose Results, Start date: 01/02/22 16:13:00 CDT, Duration: 30 day, Stop date: 02/01/22 16:12:00 CDT, 0 Insulin No Notes: Memoria regular 6-05 (Same as: l 21:13: Humulin R) Buck 00 Roll in palms of hands gently; Do not shake vigorously . WASTE: F/P - Black; E - Who What Wear Trash Bin Stable for 31 days at [...] 6-05 (Same As: l 0.12% 21:06: Peridex) Arnold liquid 00 pantoprazol No 30 mL, Isidro elisa e additive 6-05 Rate: l 24 mg [0.08 21:06: 10.32 Lo nn mg/kg/hr] + 00 ml/hr, NS 30 mL Infuse over: 2.9 hr, Route: IV, Dosing Weight 103.182 kg, Total Volume: 30 mL, Start date: 01/02/22 16:06:00 CDT, Duration: 30 day, Stop date: 02/01/22 16:05:00 CDT, BSA: 2.31 m2 etomidate No Notes: Memori a 6- (Same as: l 21:05: Amidate). [place] Per state nursing law etomidate can only be given by a nurse if patient is intubated or being intubated (unless the nurse is a BUNKER WORKER). rocuronium No Notes: Memor ia 01-02 (Same as: l 21:05: Zemuron) propofol 10 No Notes: If M emoria mg/mL 01-02 Diprivan - l (Titrate.) 21:05: change Lo nn IV 1,000 mg 00 bottle & tubing every 12 hr Per state nursing law propofol can only be given by a nurse if patient is intubated or being intubated (unless the nurse is a BUNKER WORKER). Same as: Diprivan DuoNeb No Notes: Memoria inhalation 01-02 (Same as: l solution 19:27: Duoneb) Stephen n 00 Norvasc No Notes: Memoria 6-05 (Same as: l 14:18: Norvasc) Buck losartan No Notes: Memoria - (Same as: l 14:00: Cozaar) NS 1,000 mL No 1,000 mL, M emoria 01-02 Rate: 100 l 12:29: ml/hr, Infuse over: 10 hr, Route: IV, Dosing Weight 103.182 kg, Total Volume: 1,000, Start date: 01/02/22 7:29:00 CDT, Duration: 30 day, Stop date: 02/01/22 7:28:00 CDT, BSA: 2.31 m2, 0 melatonin No Notes: Memori a - (Same as: l 02:36: Melatonin) Buck losartan No Notes: Memoria - (Same as: l 22:00: Cozaar) Arnold 00 insulin No 20 unit, Memori a isophane-in 01-01 Route: l sulin 17:00: SUB-Q, Arnold regular 00 Q6H, 70/30 Dosing Weight 103.182, kg, Start date: 01/01/22 12:00:00 CDT, Duration: 30 day, Stop date: 01/31/22 6:00:00 CDT losartan 2021-0 No Notes: Memoria 01-01 (Same as: l 15:18: Cozaar) Arnold 00 Coreg No 25 mg, 1 Memoria 01-01 tab, l 15:11: Route: GT, Drug form: TAB, Q12H, Dosing Weight 103.182, kg, Priority: NOW, Start date: 01/01/22 10:11:00 CDT, Duration: 30 day, Stop date: 01/31/22 9:00:00 CDT, 0 insulin 0 No Notes: Memoria isophane-in 01-01 (Same as: l sulin 13:07: Humulin ) Roll in palms of hands gently; Do not shake vigorously . WASTE: F/P - Black; E - Municipal Trash Bin Stable for 31 days at room temperatur e. Expires in days from ____Date insulin No 15 unit, Memori a isophane-in 01-01 Route: l sulin 13:00: SUB-Q, Q6H, Dosing Weight 103.182, kg, Start date: 01/01/22 8:00:00 CDT, Duration: 30 day, Stop date: 01/31/22 6:00:00 CDT Dextrose No 12.5 gm, Memor ia 50% Syringe 01-01 25 mL, l (D50W) 04:13: Route: IVP, Drug Form: INJ, Dosing Weight 103.182, kg, PRN, PRN Blood Glucose Results, Start date: 12/31/21 23:13:00 CDT, Duration: 30 day, Stop date: 01/30/22 23:12:00 CDT, 0 glucagon No 1 mg, Memoria 01-01 Route: IM, l 04:13: Drug form: Arnold 00 PDR/INJ, PRN, Dosing Weight 103.182, kg, PRN Blood Glucose Results, Start date: 12/31/21 23:13:00 CDT, Duration: 30 day, Stop date: 01/30/22 23:12:00 CDT, 0 Insulin No Notes: Memoria regular 01-01 (Same as: l 04:13: Humulin R) Roll in palms of hands gently; Do not shake vigorously . WASTE: F/P - Black; E - Municipal Trash Bin Stable for 31 days at room temperatur e Expires in days from ____Date Lipitor No Notes: Memoria 01-01 Same as l 02:00: Lipitor FLUoxetine No Notes: Memor ia 12-31 (Same as: l 19:07: Prozac) Insulin No 10 unit, Memori a regular 12-31 0.1 mL, l 16:30: Route: Arnold SUB-Q, Drug form: SOLN, TID-Before Meals, Dosing Weight 103.182, kg, Start date: 12/31/21 11:30:00 CDT, Duration: 30 day, Stop date: 01/30/22 7:30:00 CDT, 0 losartan 50 No 50 mg = 1 M emoria mg oral 6-03 tab, PO, l tablet 16:26: Daily, 0 00 Refill(s) amLODIPine No 2.5 mg = 1 M emoria 2.5 mg oral 6-03 tab, PO, l tablet 16:25: Daily, 0 Buck 00 Refill(s) hydrALAZINE No 100 mg = 1 Memoria 100 mg oral 6-03 tab, PO, l tablet 16:25: TID, # 90 Stephen n 00 tab, 3 Refill(s) calcitriol No 0.25 Memoria 0.25 mcg -03 microgram l oral 16:25: = 1 cap, Buck capsule 00 PO, Every Other Day, 0 Refill(s) Dextrose No 12.5 gm, Memor ia 50% Syringe 12-31 25 mL, l (D50W) 16:05: Route: Buck IVP, Drug Form: INJ, Dosing Weight 103.182, kg, PRN, PRN Blood Glucose Results, Start date: 12/31/21 11:05:00 CDT, Duration: 30 day, Stop date: 01/30/22 11:04:00 CDT, 0 glucagon No 1 mg, Memoria 12-31 Route: IM, l 16:05: Drug form: Buck 00 PDR/INJ, PRN, Dosing Weight 103.182, kg, PRN Blood Glucose Results, Start date: 12/31/21 11:05:00 CDT, Duration: 30 day, Stop date: 01/30/22 11:04:00 CDT, 0 Insulin No Notes: Memoria regular - (Same as: l 16:05: Humulin R) Roll in palms of hands gently; Do not shake vigorously . WASTE: F/P - Black; E - Municipal Trash Bin Stable for 31 days at room temperatur e Expires in days from ____Date insulin No 25 unit, Memori a isophane-[employer] - 0.25 mL, l H 16:02: Route: SUB-Q, Drug form: INJ, Q12H, Dosing Weight 103.182, kg, Priority: NOW, Start date: 12/31/21 11:02:00 CDT, Duration: 30 day, Stop date: 01/30/22 9:00:00 CDT, 0 losartan No Notes: Memoria 6- (Same as: l 14:28: Cozaar) Brilinta No Notes: Memoria (ticagrelor - (Same as: l ) 14:00: Brilinta) aspirin 81 No Notes: Memor ia mg tablet, 12-31 Take with l chewable 14:00: food. insulin No Notes: Memoria isophane - (Same as: l 13:00: Humulin N) Roll in palms of hands gently; Do not shake vigorously . WASTE: F/P - Black; E - Municipal Trash Bin Stable for 31 days at room temperatur e Expires in days from ____Date heparin No Notes: Memoria 5000 -03 porcine l units/mL 13:00: heparin Stephen n injectable 00 solution insulin No Notes: Memoria lispro 12-31 (Same as: l 08:26: Humalog) Buck 00 Roll in palms of hands gently; Do not shake vigorously . WASTE: F/P - Black; E - Municipal Trash Bin Stable for 28 days at room temperatur e. Expires in days from ____Date Insulin No Notes: Memoria regular 12-31 (Same as: l 08:26: Humulin R) Arnold 00 Roll in palms of hands gently; Do not shake vigorously . WASTE: F/P - Black; E - Municipal Trash Bin Stable for 31 days at room temperatur e Expires in days from ____Date Insulin No Notes: Memoria regular 12-31 (Same as: l 06:01: Humulin R) Buck 00 Roll in palms of hands gently; Do not shake vigorously . WASTE: F/P - Black; E - Municipal Trash Bin Stable for 31 days at room temperatur e Expires in days from ____Date Insulin No Notes: Memoria regular - (Same as: l 05:23: Humulin R) Buck 00 Roll in palms of hands gently; Do not shake vigorously . WASTE: F/P - Black; E - Municipal Trash Bin Stable for 31 days at room temperatur e Expires in days from ____Date Saline No Notes: Memoria Flush 0.9% 12-31 (Same as: l 02:00: BD Buck 00 Posiflush) Dextrose No 12.5 gm, Memor ia 50% Syringe 12-31 25 mL, l (D50W) 00:54: Route: Buck 00 IVP, Drug Form: INJ, [...] CDT, 0 insulin No Notes: Memoria lispro 12-31 (Same as: l 00:54: Humalog) Roll in palms of hands gently; Do not shake vigorously . WASTE: F/P - Black; E - Municipal Trash Bin Stable for 28 days at room temperatur e. Expires in days from ____Date Brilinta No Notes: Memoria (ticagrelor 12-30 (Same as: l ) 22:06: Brilinta) Buck 00 Saline No Notes: Memoria Flush 0.9% 12-30 (Same as: l 20:00: BD Posiflush) labetalol No 20 mg, 4 Isidro elisa 6-02 mL, Route: l 20:00: IVP, Drug form: INJ, Q10Min, Dosing Weight 103.182, kg, PRN Hypertensi on, Start date: 12/30/21 15:00:00 CDT, Duration: 30 day, Stop date: 02/28/22 14:59:00 CDT, 0 aspirin No Notes: (Do Isidro elisa 6-02 Not Crush) l 16:08: Do not Buck 00 crush or chew. niCARdipine No Notes: Isidro elisa 40 mg in NS 12-30 Same as: l 200 mL 15:50: Cardene Buck (Titrate.) 00 Concentrat IV 40 mg ion: (0.2 mg /1 ml ) Omnipaque No 100 mL, Memor ia 350 mg/mL 12-30 Route: l 15:08: IVP, Drug Form: SOLN, Dosing Weight 90.909, kg, ONCALL, STAT, Start date: 12/30/21 10:08:00 CDT, Duration: 1 doses or times, Dose = 2.2ml/kg, Max dose = 100ml -- "To be infused by Radiology Staff ONLY" Saline No Notes: Memoria Flush 0.9% 12-30 (Same as: l 14:41: BD Arnold 00 Posiflush) calcitrioL 0 Yes .25ug Take 1 Univ ers 0.25 [...] 00 every Medical other day. Branch calcitrioL 2-0 Yes .25ug Take 1 Univ ers 0.25 mcg 2-04 capsule by ity o f capsule 00:00: mouth [place] 00 every Medical other day. Branch calcitrioL 2022-0 Yes .25ug Take 1 Univ ers 0.25 mcg 2-04 capsule by ity o f capsule 00:00: mouth [place] 00 every Medical other day. Branch calcitrioL 2022-0 2022- No .25ug Take 1 Uni vers 0.25 mcg 2-04 11-27 capsule by ity of capsule 00:00: 00:00 mouth [place] 00 :00 every Medical other day. Branch calcitrioL 2022-0 2022- No .25ug Take 1 Uni vers 0.25 mcg 2-04 11-27 capsule by ity of capsule 00:00: 00:00 mouth [place] 00 :00 every Medical other day. Branch calcitrioL 2022-0 2022- No .25ug Take 1 Uni vers 0.25 mcg 2-04 11-27 capsule by ity of capsule 00:00: 00:00 mouth [place] 00 :00 every Medical other day. Branch calcitrioL 2022-0 2022- No .25ug Take 1 Uni vers 0.25 mcg 2-04 11-27 capsule by ity of capsule 00:00: 00:00 mouth [place] 00 :00 every Medical other day. Branch losartan 25 2021-0 Yes 25mg Take 1 Univ ers mg tablet 1-24 tablet by ity o f 00:00: mouth [place] 00 daily. Medical Branch hydrALAZINE 2021-0 Yes [id number] 50mg Take 1 [facility] 50 mg 1-24 tablet by ity of tablet 00:00: mouth 2 [place] 00 (two) Medical times Branch daily. amLODIPine 2-0 Yes 10mg Take 1 Unive rs 10 mg 1-24 tablet by ity of tablet 00:00: mouth [place] 00 daily. Medical Branch losartan 25 2-0 Yes 25mg Take 1 Univ ers mg tablet 1-24 tablet by ity o f 00:00: mouth [place] 00 daily. Medical Branch hydrALAZINE 2-0 Yes [id number] 50mg Take 1 [facility] 50 mg 1-24 [...] 00 daily. Medical Branch hydrALAZINE 2-0 Yes [id number] 50mg Take 1 [facility] 50 mg 1-24 [...] 00 daily. Medical Branch hydrALAZINE 2021-0 Yes [id number] 50mg Take 1 [facility] 50 mg 1-24 [...] 00 daily. Medical Branch hydrALAZINE 2021-0 Yes [id number] 50mg Take 1 [facility] 50 mg 1-24 [...] 00 daily. Medical Branch hydrALAZINE 2-0 Yes [id number] 50mg Take 1 [facility] 50 mg 1-24 [...] mouth [place] 00 daily. Medical Branch hydrALAZINE 2022-0 Yes [id number] 50mg Take 1 [facility] 50 mg 1-24 [...] mouth [place] 00 daily. Medical Branch hydrALAZINE 2022-0 Yes [id number] 50mg Take 1 [facility] 50 mg 1-24 [...] tablet by ity of tablet 00:00: mouth [place] 00 daily. Medical Branch amLODIPine 2022-0 Yes 10mg Take 1 Unive rs 10 mg 1-24 tablet by ity of tablet 00:00: mouth [place] 00 daily. Medical Branch amLODIPine 2022-0 Yes 10mg Take 1 Unive rs 10 mg 1-24 tablet by ity of tablet 00:00: [facility] 00 daily. Medical Branch amLODIPine 2022-0 Yes 10mg Take 1 Unive rs 10 mg 1-24 tablet by ity of tablet 00:00: mouth [place] 00 daily. Medical Branch amLODIPine 2022-0 Yes 10mg Take 1 Unive rs 10 mg 1-24 tablet by ity of tablet 00:00: [facility] 00 daily. Medical Branch amLODIPine 2022-0 Yes 10mg Take 10 mg U nivers 10 mg 1-24 by mouth ity of tablet 00:00: at [place] [address] bedtime. Medical Branch amLODIPine 2022-0 Yes 10mg Take 10 mg U nivers 10 mg 1-24 by mouth ity of tablet 00:00: at [place] [address] bedtime. Medical Branch amLODIPine 2022-0 Yes 10mg Take 10 mg U nivers 10 mg 1-24 by mouth ity of tablet 00:00: at [place] [address] bedtime. Medical Branch losartan 25 2-0 2022- No 25mg Take 1 Uni vers mg tablet 1-24 10-25 tablet by ity of 00:00: 00:00 mouth [place] 00 :00 daily. Medical Branch hydrALAZINE 2-0 2- No [id number] 50mg Take 1 [facility] 50 mg 1-24 10-25 tablet by ity of tablet 00:00: 00:00 mouth 2 [place] 00 :00 (two) Medical times Branch daily. losartan 25 2022-0 2022- No 25mg Take 1 Uni vers mg tablet 1-24 10-25 tablet by ity of 00:00: 00:00 mouth [place] 00 :00 daily. Medical Branch hydrALAZINE 2022-0 2022- No [id number] 50mg Take 1 [facility] 50 mg 1-24 10-25 tablet by ity of tablet 00:00: 00:00 mouth 2 [place] 00 :00 (two) Medical times Branch daily. isosorbide 2021-0 Yes 20mg Take 20 mg U nivers dinitrate 8-13 by mouth 2 ity of 20 mg 18:03: (two) [place] tablet 49 times Medical daily. Branch isosorbide 2021-0 Yes 20mg Take 20 mg U nivers dinitrate 8-13 by mouth 2 ity of 20 mg 18:03: (two) [place] tablet 49 times Medical daily. Branch isosorbide 2021-0 Yes 20mg Take 20 mg U nivers dinitrate 8-13 by mouth 2 ity of 20 mg 18:03: (two) [place] tablet 49 times Medical daily. Branch furosemide 2021-0 Yes 80mg Take 1 Unive [...] Medical morning Branch and evening. furosemide 2021-0 2022- No 80mg Take 1 Univ ers 80 mg 7-13 10-25 tablet by ity of tablet 00:00: 00:00 mouth [place] 00 :00 every Medical morning Branch and evening. furosemide 2021-0 2022- No 80mg Take 1 Univ ers 80 mg 7-13 10-25 tablet by ity of tablet 00:00: 00:00 mouth [place] 00 :00 every Medical morning Branch and evening. carvediloL 2020-0 Yes [id number] 25mg Take 1 U nivers 25 mg 3-24 tablet by ity of tablet 00:00: mouth [place] (two) Medical times Branch daily with meals. carvediloL 2020-0 Yes [id number] 25mg Take 1 U nivers 25 mg 3-24 tablet by ity of tablet 00:00: mouth [place] (two) Medical times Branch daily with meals. carvediloL 2020-0 Yes [id number] 25mg Take 1 U nivers 25 mg 3-24 tablet by ity of tablet 00:00: [facility] [place] (two) Medical times Branch daily with meals. carvediloL 2020-0 Yes [id number] 25mg Take 1 U nivers 25 mg 3-24 tablet by ity of tablet 00:00: [facility] [place] (two) Medical times Branch daily with meals. carvediloL 2020-0 Yes [id number] 25mg Take 1 U nivers 25 mg 3-24 tablet by ity of tablet 00:00: [facility] [place] (two) Medical times Branch daily with meals. carvediloL 2020-0 Yes [id number] 25mg Take 1 U nivers 25 mg 3-24 tablet by ity of tablet 00:00: [facility] [place] (two) Medical times Branch daily with meals. carvediloL 2020-0 Yes [id number] 25mg Take 1 U nivers 25 mg 3-24 tablet by ity of tablet 00:00: [facility] [place] (two) Medical times Branch daily with meals. carvediloL 2020-0 Yes [id number] 25mg Take 1 U nivers 25 mg 3-24 tablet by ity of tablet 00:00: [facility] [place] (two) Medical times Branch daily with meals. carvediloL 2020-0 Yes [id number] 25mg Take 1 U nivers 25 mg 3-24 tablet by ity of tablet 00:00: mouth [place] (two) Medical times Branch daily with meals. carvediloL 2020-0 Yes [id number] 25mg Take 1 U nivers 25 mg 3-24 tablet by ity of tablet 00:00: mouth (two) Medical times Branch daily with meals. carvediloL 2020-0 Yes [id number] 25mg Take 1 U nivers 25 mg 3-24 tablet by ity of tablet 00:00: mouth (two) Medical times Branch daily with meals. carvediloL 2020-0 Yes [id number] 25mg Take 1 U nivers 25 mg 3-24 tablet by ity of tablet 00:00: mouth (two) Medical times Branch daily with meals. carvediloL 2020-0 Yes [id number] 25mg Take 1 U nivers 25 mg 3-24 tablet by ity of tablet 00:00: mouth (two) Medical times Branch daily with meals. carvediloL 2020-0 Yes [id number] 25mg Take 1 U nivers 25 mg 3-24 tablet by ity of tablet 00:00: mouth (two) Medical times Branch daily with meals. carvediloL 2020-0 Yes [id number] 25mg Take 1 U nivers 25 mg 3-24 tablet by ity of tablet 00:00: [facility] (two) Medical times Branch daily with meals. carvediloL 2020-0 Yes [id number] 25mg Take 1 U nivers 25 mg 3-24 tablet by ity of tablet 00:00: [facility] (two) Medical times Branch daily with meals. carvediloL 2020-0 Yes [id number] 25mg Take 1 U nivers 25 mg 3-24 tablet by ity of tablet 00:00: mouth (two) Medical times Branch daily with meals. carvediloL 2020-0 Yes [id number] 25mg Take 1 U nivers 25 mg 3-24 tablet by ity of tablet 00:00: mouth (two) Medical times Branch daily with meals. carvediloL 2020-0 Yes [id number] 25mg Take 1 U nivers 25 mg 3-24 tablet by ity of tablet 00:00: mouth (two) Medical times Branch daily with meals. carvediloL 2020-0 Yes [id number] 25mg Take 1 U nivers 25 mg 3-24 tablet by ity of tablet 00:00: mouth (two) Medical times Branch daily with meals. carvediloL Yes [id number] 25mg Take 1 U nivers 25 mg 3-24 tablet by ity of tablet 00:00: mouth 2 (two) Medical times Branch daily with meals. carvediloL Yes [id number] 25mg Take 1 U nivers 25 mg 3-24 tablet by ity of tablet 00:00: mouth 2 (two) Medical times Branch daily with meals. carvediloL Yes [id number] 25mg Take 1 U nivers 25 mg 3-24 tablet by [facility] of tablet 00:00: mouth 2 (two) Medical times Branch daily with meals. carvediloL Yes [id number] 25mg Take 1 [facility] nivers 25 mg 3-24 tablet by [facility] of tablet 00:00: mouth 2 (two) Medical times Branch daily with meals. GLUCAGON Yes [id number] INJECT 1 U nivers EMERGENCY 4-08 MG ity of KIT, HUMAN, 00:00: INTRAMUSCU [place] 1 mg 00 LARLY Medical injection NEEDED Branch (FOR HYPOGLYCEM IA) GLUCAGON Yes [id number] INJECT 1 U nivers EMERGENCY 4-08 MG ity of KIT, HUMAN, 00:00: INTRAMUSCU [place] 1 mg 00 LARLY Medical injection NEEDED Branch (FOR HYPOGLYCEM [place]) GLUCAGON Yes [id number] INJECT 1 U nivers EMERGENCY 4-08 MG ity of KIT, HUMAN, 00:00: INTRAMUSCU [place] 1 mg 00 LARLY Medical injection NEEDED Branch (FOR HYPOGLYCEM [place]) GLUCAGON Yes [id number] INJECT 1 [facility] nivers EMERGENCY 4-08 MG ity of KIT, HUMAN, 00:00: INTRAMUSCU [place] 1 mg 00 LARLY Medical injection NEEDED Branch (FOR HYPOGLYCEM [place]) GLUCAGON Yes [id number] INJECT 1 [facility]ivers EMERGENCY 4-08 MG ity of KIT, HUMAN, 00:00: INTRAMUSCU [place] 1 mg 00 LARLY Medical injection NEEDED Branch (FOR HYPOGLYCEM IA) GLUCAGON Yes [id number] INJECT 1 U [facility]ivers EMERGENCY 4-08 MG ity of KIT, HUMAN, 00:00: INTRAMUSCU [place] 1 mg 00 LARLY Medical injection NEEDED Branch (FOR HYPOGLYCEM IA) GLUCAGON Yes [id number] INJECT 1 U nivers EMERGENCY 4-08 MG ity of KIT, HUMAN, 00:00: INTRAMUSCU [place] 1 mg 00 LARLY Medical injection NEEDED Branch (FOR HYPOGLYCEM IA) GLUCAGON Yes [id number] INJECT 1 U nivers EMERGENCY 4-08 MG ity of KIT, HUMAN, 00:00: INTRAMUSCU [place] 1 mg 00 LARLY Medical injection NEEDED Branch (FOR HYPOGLYCEM IA) GLUCAGON 2018- Yes [id number] INJECT 1 U nivers EMERGENCY 4-08 MG ity of KIT, HUMAN, 00:00: INTRAMUSCU [place] 1 mg 00 LARLY Medical injection NEEDED Branch (FOR HYPOGLYCEM IA) GLUCAGON Yes [id number] INJECT 1 U nivers EMERGENCY 4-08 MG ity of KIT, HUMAN, 00:00: INTRAMUSCU [place] 1 mg 00 LARLY Medical injection NEEDED Branch (FOR HYPOGLYCEM IA) GLUCAGON Yes [id number] INJECT 1 U nivers EMERGENCY 4-08 MG ity of KIT, HUMAN, 00:00: INTRAMUSCU [place] 1 mg 00 LARLY Medical injection NEEDED Branch (FOR HYPOGLYCEM IA) GLUCAGON Yes [id number] INJECT 1 U nivers EMERGENCY 4-08 MG ity of KIT, HUMAN, 00:00: INTRAMUSCU [place] 1 mg 00 LARLY Medical injection NEEDED Branch (FOR HYPOGLYCEM IA) GLUCAGON Yes [id number] INJECT 1 U nivers EMERGENCY 4-08 MG ity of KIT, HUMAN, 00:00: INTRAMUSCU [place] 1 mg 00 LARLY Medical injection NEEDED Branch (FOR HYPOGLYCEM IA) GLUCAGON 2018- Yes [id number] INJECT 1 U nivers EMERGENCY 4-08 MG ity of KIT, HUMAN, 00:00: INTRAMUSCU [place] 1 mg 00 LARLY Medical injection NEEDED Branch (FOR HYPOGLYCEM IA) GLUCAGON Yes [id number] INJECT 1 U nivers EMERGENCY 4-08 MG ity of KIT, HUMAN, 00:00: INTRAMUSCU [place] 1 mg 00 LARLY Medical injection NEEDED Branch (FOR HYPOGLYCEM IA) GLUCAGON Yes [id number] INJECT 1 U nivers EMERGENCY 4-08 MG ity of KIT, HUMAN, 00:00: INTRAMUSCU [place] 1 mg 00 LARLY Medical injection NEEDED Branch (FOR HYPOGLYCEM IA) GLUCAGON Yes [id number] INJECT 1 U nivers EMERGENCY 4-08 MG ity of KIT, HUMAN, 00:00: INTRAMUSCU [place] 1 mg 00 LARLY Medical injection NEEDED Branch (FOR HYPOGLYCEM IA) GLUCAGON Yes [id number] INJECT 1 U nivers EMERGENCY 4-08 MG ity of KIT, HUMAN, 00:00: INTRAMUSCU [place] 1 mg 00 LARLY Medical injection NEEDED Branch (FOR HYPOGLYCEM IA) GLUCAGON Yes [id number] INJECT 1 U nivers EMERGENCY 4-08 MG ity of KIT, HUMAN, 00:00: INTRAMUSCU [place] 1 mg 00 LARLY Medical injection NEEDED Branch (FOR HYPOGLYCEM IA) GLUCAGON Yes [id number] INJECT 1 U nivers EMERGENCY 4-08 MG ity of KIT, HUMAN, 00:00: INTRAMUSCU [place] 1 mg 00 LARLY Medical injection NEEDED Branch (FOR HYPOGLYCEM IA) GLUCAGON Yes [id number] INJECT 1 U nivers EMERGENCY 4-08 MG ity of KIT, HUMAN, 00:00: INTRAMUSCU [place] 1 mg 00 LARLY Medical injection NEEDED Branch (FOR HYPOGLYCEM IA) GLUCAGON Yes [id number] INJECT 1 U nivers EMERGENCY 4-08 MG ity of KIT, HUMAN, 00:00: INTRAMUSCU [place] 1 mg 00 LARLY Medical injection NEEDED Branch (FOR HYPOGLYCEM IA) GLUCAGON Yes [id number] INJECT 1 U nivers EMERGENCY 4-08 MG ity of KIT, HUMAN, 00:00: INTRAMUSCU [place] 1 mg 00 LARLY Medical injection NEEDED Branch (FOR HYPOGLYCEM [place]) GLUCAGON Yes [id number] INJECT 1 U nivers EMERGENCY 4-08 MG ity of KIT, HUMAN, 00:00: INTRAMUSCU [place] 1 mg 00 LARLY Medical injection NEEDED Branch (FOR HYPOGLYCEM [place]) carvedilol Yes 12.5mg Take 12.[address] [facility] (COREG) 9-25 mg by [facility] MG 11:17: mouth 2 Medical tablet 27 (two) Center times daily with breakfast and dinner. carvedilol Yes 12.5mg Take 12.[address] [facility] (COREG) [...] othiazide 10:51: mouth Medical (MICARDIS 26 daily. [facility]) 40-12.5 mg per tablet telmisartan 2018-0 Yes 1{tbl} QD Take [address] -hydrochlor 9-25 tablet by [facility] othiazide 10:51: mouth Medical (MICARDIS 26 daily. [facility]) 40-12.5 mg per tablet telmisartan 2018-0 Yes 1{tbl} QD Take [address] -hydrochlor 9-25 tablet by [place] [facility] othiazide 10:51: mouth Medical (MICARDIS 26 daily. [facility]) 40-12.5 mg per tablet telmisartan 2018-0 Yes 1{tbl} QD Take [address] -hydrochlor 9-25 tablet by [place] [facility] othiazide 10:51: mouth Medical (MICARDIS 26 daily. Center [facility]) 40-12.5 mg per tablet telmisartan 2018-0 Yes 1{tbl} QD Take [address] -hydrochlor 9-25 tablet by [place] [facility] othiazide 10:51: mouth Medical (MICARDIS 26 daily. [place] [facility]) 40-12.5 mg per tablet telmisartan 2018-0 Yes 1{tbl} QD Take [address] -hydrochlor 9-25 tablet by [place] [facility] othiazide 10:51: mouth Medical (MICARDIS 26 daily. [facility]) 40-12.5 mg per tablet telmisartan 2018-0 Yes 1{tbl} QD Take [address] -hydrochlor 9-25 tablet by [place] [facility] othiazide 10:51: mouth Medical (MICARDIS 26 daily. [facility]) 40-12.5 mg per tablet telmisartan 2018-0 Yes 1{tbl} QD Take [address] -hydrochlor 9-25 tablet by [place] [facility] othiazide 10:51: mouth Medical (MICARDIS 26 daily. [facility]) 40-12.5 mg per tablet telmisartan 2018-0 Yes 1{tbl} QD Take [address] -hydrochlor 9-25 tablet by [place] [facility] othiazide 10:51: mouth Medical (MICARDIS 26 daily. [facility]) 40-12.5 mg per tablet telmisartan 2018-0 Yes 1{tbl} QD Take [address] -hydrochlor 9-25 tablet by [place] [facility] othiazide 10:51: mouth Medical (MICARDIS 26 daily. [facility]) 40-12.5 mg per tablet telmisartan 2018-0 Yes 1{tbl} QD Take [address] -hydrochlor 9-25 tablet by [place] [facility] othiazide 10:51: mouth Medical (MICARDIS 26 daily. [facility]) 40-12.5 mg per tablet telmisartan 2018-0 Yes 1{tbl} QD Take [address] -hydrochlor 9-25 tablet by [place] [facility] othiazide 10:51: mouth Medical (MICARDIS 26 daily. [facility]) 40-12.5 mg per tablet telmisartan 2018-0 Yes 1{tbl} QD Take [address] -hydrochlor 9-25 tablet by [place] [facility] othiazide 10:51: mouth Medical (MICARDIS 26 daily. [place] [facility]) 40-12.5 mg per tablet telmisartan 2018-0 Yes 1{tbl} QD Take [address] -hydrochlor 9-25 tablet by [place] [facility] othiazide 10:51: mouth Medical (MICARDIS 26 daily. [place] [facility]) 40-12.5 mg per tablet telmisartan 2018-0 Yes 1{tbl} QD Take [address] -hydrochlor 9-25 tablet by [place] [facility] othiazide 10:51: mouth Medical (MICARDIS 26 daily. [place] [facility]) 40-12.5 mg per tablet NIFEdipine 2018-0 Yes 90mg QD Take [address] (ADALAT CC) 5-21 by mouth [facility] 90 MG 24 hr 00:00: daily. Medi michelle tablet 00 [place] NIFEdipine 2018-0 Yes 90mg QD Take [address] (ADALAT CC) 5-21 by mouth [facility] 90 MG 24 hr 00:00: daily. Medi michelle tablet 00 [place] NIFEdipine 2018-0 Yes 90mg QD Take [address] (ADALAT CC) 5-21 by mouth [facility] 90 MG 24 hr 00:00: daily. Medi michelle tablet 00 [place] NIFEdipine 2018-0 Yes 90mg QD Take [address] (ADALAT CC) 5-21 by mouth [facility] 90 MG 24 hr 00:00: daily. Medi michelle tablet 00 [place] NIFEdipine 2018-0 Yes 90mg QD Take [address] (ADALAT CC) 5-21 by mouth [facility] 90 MG 24 hr 00:00: daily. Medi michelle tablet 00 [place] NIFEdipine 2018-0 Yes 90mg QD Take [address] (ADALAT CC) 5-21 by mouth [facility] 90 MG 24 hr 00:00: daily. Medi michelle tablet 00 Center NIFEdipine 2018-0 Yes 90mg QD Take [address] (ADALAT CC) 5-21 by mouth [facility] 90 MG 24 hr 00:00: daily. Medi michelle tablet 00 [place] NIFEdipine 2018-0 Yes 90mg QD Take [address] (ADALAT CC) 5-21 by mouth [facility] 90 MG 24 hr 00:00: daily. Medi michelle tablet 00 [place] NIFEdipine 2018-0 Yes 90mg QD Take [address] (ADALAT CC) 5-21 by mouth [facility] 90 MG 24 hr 00:00: daily. Medi michelle tablet 00 [place] NIFEdipine 2018-0 Yes 90mg QD Take [address] (ADALAT CC) 5-21 by mouth [facility] 90 MG 24 hr 00:00: daily. Medi michelle tablet 00 [place] NIFEdipine 2018-0 Yes 90mg QD Take [address] (ADALAT CC) 5-21 by mouth [facility] 90 MG 24 hr 00:00: daily. Medi michelle tablet 00 [place] NIFEdipine 2018-0 Yes 90mg QD Take [address] (ADALAT CC) 5-21 by mouth [facility] 90 MG 24 hr 00:00: daily. Medi michelle tablet 00 [place] NIFEdipine 2018-0 Yes 90mg QD Take [address] (ADALAT CC) 5-21 by mouth [facility] 90 MG 24 hr 00:00: daily. Medi michelle tablet 00 [place] NIFEdipine 2018-0 Yes 90mg QD Take [address] (ADALAT CC) 5-21 by mouth [facility] 90 MG 24 hr 00:00: daily. Medi michelle tablet 00 [place] NIFEdipine 2017-0 Yes 90mg QD Take [address] (ADALAT CC) 5-21 by mouth [facility] 90 MG 24 hr 00:00: daily. Medi michelle tablet 00 [place] NIFEdipine 2017-0 2023- No 90mg QD Take [address] [facility] (ADALAT CC) 12-18 05-03 by mouth [facility] 90 MG 24 hr 00:00: 00:00 daily. Med ical tablet 00 :00 [place] NIFEdipine 2017-0 2023- No 90mg QD Take [address] [facility] (ADALAT CC) 12-18-03 by mouth [facility] 90 MG 24 hr 00:00: 00:00 daily. Med ical tablet 00 :00 [place] NIFEdipine 2017-0 2023- No 90mg QD Take [address] [facility] (ADALAT CC) 12-18 05-03 by mouth [facility] 90 MG 24 hr 00:00: 00:00 daily. Med ical tablet 00 :00 [place] NIFEdipine 2018-0 2023- No 90mg QD Take [address] [facility] (ADALAT CC) 12-18 05-03 by mouth [facility] 90 MG 24 hr 00:00: 00:00 daily. Med ical tablet 00 :00 [place] NIFEdipine 2018-0 2023- No 90mg QD Take [address] [facility] (ADALAT CC) 12-18-03 by mouth [facility] 90 MG 24 hr 00:00: 00:00 daily. Med ical tablet 00 :00 [place] NIFEdipine 2017-2022- No 90mg QD Take [address] [facility] (ADALAT CC) 12-18 05-03 by mouth [facility] 90 MG 24 hr 00:00: 00:00 daily. Med ical tablet 00 :00 [place] NIFEdipine 2022- No 90mg QD Take [address] [facility] (ADALAT CC) 12-18-03 by mouth [facility] 90 MG 24 hr 00:00: 00:00 daily. Med ical tablet 00 :00 [place] NIFEdipine 2022- No 90mg QD Take [address] [facility] (ADALAT CC) 12-18 05-03 by mouth [facility] 90 MG 24 hr 00:00: 00:00 daily. Med ical tablet 00 :00 [place] NIFEdipine 2022- No 90mg QD Take [address] [facility] (ADALAT CC) 12-18-03 by mouth [facility] 90 MG 24 hr 00:00: 00:00 daily. Med ical tablet 00 :00 [place] NIFEdipine 2022- No 90mg QD Take [address] [facility] (ADALAT CC) 12-18 05-03 by mouth [facility] 90 MG 24 hr 00:00: 00:00 daily. Med ical tablet 00 :00 [place] NIFEdipine 2022- No 90mg QD Take [address] [facility] (ADALAT CC) 12-18 05-03 by mouth [facility] 90 MG 24 hr 00:00: 00:00 daily. Med ical tablet 00 :00 [place] NIFEdipine 2022- No 90mg QD Take [address] [facility] (ADALAT CC) 12-18-03 by mouth [facility] 90 MG 24 hr 00:00: 00:00 daily. Med ical tablet 00 :00 Center NIFEdipine 2017-3- No 90mg QD Take [address] [facility] (ADALAT CC) 12-18 05-03 by mouth [facility] 90 MG 24 hr 00:00: 00:00 daily. Med ical tablet 00 :00 [place] NIFEdipine 2017-0 2022- No 90mg QD Take [address] [facility] (ADALAT CC) 12-18 05-03 by mouth [facility] 90 MG 24 hr 00:00: 00:00 daily. Med ical tablet 00 :00 [place] NIFEdipine 2017-3- No 90mg QD Take [address] [facility] (ADALAT CC) 12-18 05-03 by mouth [facility] 90 MG 24 hr 00:00: 00:00 daily. Med ical tablet 00 :00 [place] NIFEdipine 2017-0 2022- No 90mg QD Take [address] [facility] (ADALAT CC) 12-18-03 by mouth [facility] 90 MG 24 hr 00:00: 00:00 daily. Med ical tablet 00 :00 [place] NIFEdipine 2017-0 2022- No 90mg QD Take [address] [facility] (ADALAT CC) 12-18 05-03 by mouth [facility] 90 MG 24 hr 00:00: 00:00 daily. Med ical tablet 00 :00 [place] NIFEdipine 2017-2022- No 90mg QD Take [address] [facility] (ADALAT CC) 12-18-03 by mouth [facility] 90 MG 24 hr 00:00: 00:00 daily. Med ical tablet 00 :00 [place] NIFEdipine 2017-0 2022- No 90mg QD Take [address] [facility] (ADALAT CC) 12-18-03 by mouth [facility] 90 MG 24 hr 00:00: 00:00 daily. Med ical tablet 00 :00 [place] NIFEdipine 2017-2022- No 90mg QD Take [address] [facility] (ADALAT CC) 12-18-03 by mouth [facility] 90 MG 24 hr 00:00: 00:00 daily. Med ical tablet 00 :00 [place] NIFEdipine 2017-0 3- No 90mg QD Take [address] [facility] (ADALAT CC) 12-18-03 by mouth [facility] 90 MG 24 hr 00:00: 00:00 daily. Med ical tablet 00 :00 [place] NIFEdipine 2017-0 3- No 90mg QD Take [address] [facility] (ADALAT CC) 12-18 05-03 by mouth [facility] 90 MG 24 hr 00:00: 00:00 daily. Med ical tablet 00 :00 [place] NIFEdipine 2017-0 2023- No 90mg QD Take [address] [facility] (ADALAT CC) 12-18 05-03 by mouth [facility] 90 MG 24 hr 00:00: 00:00 daily. Med ical tablet 00 :00 [place] NIFEdipine 2017-0 3- No 90mg QD Take [address] [facility] (ADALAT CC) 12-18 05-03 by mouth [facility] 90 MG 24 hr 00:00: 00:00 daily. Med ical tablet 00 :00 [place] NIFEdipine 2022- No 90mg QD Take [address] [facility] (ADALAT CC) 12-18 05-03 by mouth [facility] 90 MG 24 hr 00:00: 00:00 daily. Med ical tablet 00 :00 [place] NIFEdipine 2022- No 90mg QD Take [address] [facility] (ADALAT CC) 12-18 05-03 by mouth [facility] 90 MG 24 hr 00:00: 00:00 daily. Med ical tablet 00 :00 [place] NIFEdipine 2022- No 90mg QD Take [address] [facility] (ADALAT CC) 12-18 05-03 by mouth [facility] 90 MG 24 hr 00:00: 00:00 daily. Med ical tablet 00 :00 [place] NIFEdipine 2022- No 90mg QD Take [address] [facility] (ADALAT CC) 12-18 05-03 by mouth [facility] 90 MG 24 hr 00:00: 00:00 daily. Med ical tablet 00 :00 [place] NIFEdipine 2022- No 90mg QD Take [address] [facility] (ADALAT CC) 12-18 05-03 by mouth [facility] 90 MG 24 hr 00:00: 00:00 daily. Med ical tablet 00 :00 [place] NIFEdipine 2022- No 90mg QD Take [address] [facility] (ADALAT CC) 12-18 05-03 by mouth [facility] 90 MG 24 hr 00:00: 00:00 daily. Med ical tablet 00 :00 [place] NIFEdipine 2022- No 90mg QD Take [address] [facility] (ADALAT CC) 12-18 05-03 by mouth [facility] 90 MG 24 hr 00:00: 00:00 daily. Med ical tablet 00 :00 [place] NIFEdipine 2017-0 3- No 90mg QD Take [address] [facility] (ADALAT CC) 12-18 05-03 by mouth [facility] 90 MG 24 hr 00:00: 00:00 daily. Med ical tablet 00 :00 [place] NIFEdipine 2017-2022- No 90mg QD Take [address] [facility] (ADALAT CC) 12-18 05-03 by mouth [facility] 90 MG 24 hr 00:00: 00:00 daily. Med ical tablet 00 :00 [place] NIFEdipine 3- No 90mg QD Take [address] [facility] (ADALAT CC) 12-18 by mouth [facility] 90 MG 24 hr 00:00: 00:00 daily. Med ical tablet 00 :00 [place] HUMULIN N Yes INJECT 40 Uni vers [...] Branch BEFORE BREAKFAST AND SUPPER HUMULIN N 2018-0 Yes INJECT 40 Uni vers 100 unit/mL [...] as needed for Allergies. blood sugar Yes [id number] Use to [facility] diagnostic 6-27 test blood ity of (ACCU-CHEK 00:00: sugars [place] SMARTVIEW 00 TID, DX Medical TEST STRIP) 250.91 Branch strip blood sugar Yes [id number] Use to [facility] diagnostic 6-27 test blood ity of (ACCU-CHEK 00:00: sugars [place] SMARTVIEW 00 TID, DX Medical TEST STRIP) 250.91 Branch strip blood sugar Yes [id number] Use to [facility] diagnostic 6-27 test blood ity of (ACCU-CHEK 00:00: sugars [place] SMARTVIEW 00 TID, DX Medical TEST STRIP) 250.91 Branch strip blood sugar Yes [id number] Use to [facility] diagnostic 6-27 test blood ity of (ACCU-CHEK 00:00: sugars [place] SMARTVIEW 00 TID, DX Medical TEST STRIP) 250.91 Branch strip blood sugar Yes [id number] Use to [facility] diagnostic 6-27 test blood ity of (ACCU-CHEK 00:00: sugars [place] SMARTVIEW 00 TID, DX Medical TEST STRIP) 250.91 Branch strip blood sugar Yes [id number] Use to [facility] diagnostic 6-27 test blood ity of (ACCU-CHEK 00:00: sugars [place] SMARTVIEW 00 TID, DX Medical TEST STRIP) 250.91 Branch strip blood sugar Yes [id number] Use to [facility] diagnostic 6-27 test blood ity of (ACCU-CHEK 00:00: sugars [place] SMARTVIEW 00 TID, DX Medical TEST STRIP) 250.91 Branch strip blood sugar Yes [id number] Use to [facility] diagnostic 6-27 test blood ity of (ACCU-CHEK 00:00: sugars [place] SMARTVIEW 00 TID, DX Medical TEST STRIP) 250.91 Branch strip blood sugar Yes [id number] Use to [facility] diagnostic 6-27 test blood ity of (ACCU-CHEK 00:00: sugars [place] SMARTVIEW 00 TID, DX Medical TEST STRIP) 250.91 Branch strip blood sugar Yes [id number] Use to [facility] diagnostic 6-27 test blood ity of (ACCU-CHEK 00:00: sugars [place] SMARTVIEW 00 TID, DX Medical TEST STRIP) 250.91 Branch strip blood sugar Yes [id number] Use to [facility] diagnostic 6-27 test blood ity of (ACCU-CHEK 00:00: sugars [place] SMARTVIEW 00 TID, DX Medical TEST STRIP) 250.91 Branch strip blood sugar Yes [id number] Use to [facility] diagnostic 6-27 test blood ity of (ACCU-CHEK 00:00: sugars [place] SMARTVIEW 00 TID, DX Medical TEST STRIP) 250.91 Branch strip blood sugar Yes [id number] Use to [facility] diagnostic 6-27 test blood ity of (ACCU-CHEK 00:00: sugars [place] SMARTVIEW 00 TID, DX Medical TEST STRIP) 250.91 Branch strip blood sugar Yes [id number] Use to [facility] diagnostic 6-27 test blood ity of (ACCU-CHEK 00:00: sugars [place] SMARTVIEW 00 TID, DX Medical TEST STRIP) 250.91 Branch strip blood sugar Yes [id number] Use to [facility] diagnostic 6-27 test blood ity of (ACCU-CHEK 00:00: sugars [place] SMARTVIEW 00 TID, DX Medical TEST STRIP) 250.91 Branch strip blood sugar Yes [id number] Use to [facility] diagnostic 6-27 test blood ity of (ACCU-CHEK 00:00: sugars [place] SMARTVIEW 00 TID, DX Medical TEST STRIP) 250.91 Branch strip blood sugar Yes [id number] Use to [facility] diagnostic 6-27 test blood ity of (ACCU-CHEK 00:00: sugars [place] SMARTVIEW 00 TID, DX Medical TEST STRIP) 250.91 Branch strip blood sugar Yes [id number] Use to [facility] diagnostic 6-27 test blood ity of (ACCU-CHEK 00:00: sugars [place] SMARTVIEW 00 TID, DX Medical TEST STRIP) 250.91 Branch strip blood sugar Yes [id number] Use to [facility] diagnostic 6-27 test blood ity of (ACCU-CHEK 00:00: sugars [place] SMARTVIEW 00 TID, DX Medical TEST STRIP) 250.91 Branch strip blood sugar Yes [id number] Use to [facility] diagnostic 6-27 test blood ity of (ACCU-CHEK 00:00: sugars [place] SMARTVIEW 00 TID, DX Medical TEST STRIP) 250.91 Branch strip blood sugar Yes [id number] Use to [facility] diagnostic 6-27 test blood ity of (ACCU-CHEK 00:00: sugars [place] SMARTVIEW 00 TID, DX Medical TEST STRIP) 250.91 Branch strip blood sugar Yes [id number] Use to [facility] diagnostic 6-27 test blood ity of (ACCU-CHEK 00:00: sugars [place] SMARTVIEW 00 TID, DX Medical TEST STRIP) 250.91 Branch strip blood sugar Yes [id number] Use to [facility] diagnostic 6-27 test blood ity of (ACCU-CHEK 00:00: sugars [place] SMARTVIEW 00 TID, DX Medical TEST STRIP) 250.91 Branch strip blood sugar Yes [id number] Use to [facility] diagnostic 6-27 test blood ity of (ACCU-CHEK 00:00: sugars [place] SMARTVIEW 00 TID, DX Medical TEST STRIP) 250.91 Branch strip HYDROcodone 0 Yes 1{tbl} Take 1 [facility] -acetaminop [...] Branch hours as needed for Pain. HYDROcodone 0 Yes 1{tbl} Take 1 [facility] -acetaminop 1-27 tablet by ity of hen 7.5-325 00:00: mouth [place] mg per 00 every 6 Medical tablet (six) Branch hours as needed for Pain. HYDROcodone 0 Yes 1{tbl} Take 1 [facility] -acetaminop 1-27 tablet by ity of hen 7.5-325 00:00: mouth [place] mg per 00 every 6 Medical tablet (six) Branch hours as needed for Pain. HYDROcodone 0 Yes 1{tbl} Take 1 [facility] -acetaminop [...] hours as needed for Pain. insulin Yes [id number] Per [facility] 03-22 patients ity of human 00:00: sliding [place] (HUMULIN R) 00 scale, max Me dical 100 unit/mL dose per Bran ch injection day is 60 units. insulin Yes [id number] Per [facility] 03-22 patients ity of human 00:00: sliding [place] (HUMULIN R) 00 scale, max Me dical 100 unit/mL dose per Bran ch injection day is 60 units. insulin Yes [id number] Per [facility] 03-22 patients ity of human 00:00: sliding [place] (HUMULIN R) 00 scale, max Me dical 100 unit/mL dose per Bran ch injection day is 60 units. insulin Yes [id number] Per [facility] 03-22 patients ity of human 00:00: sliding [place] (HUMULIN R) 00 scale, max Me dical 100 unit/mL dose per Bran ch injection day is 60 units. insulin Yes [id number] Per [facility] 03-22 patients ity of human 00:00: sliding [place] (HUMULIN R) 00 scale, max Me dical 100 unit/mL dose per Bran ch injection day is 60 units. insulin Yes [id number] Per [facility] 03-22 patients ity of human 00:00: sliding [place] (HUMULIN R) 00 scale, max Me dical 100 unit/mL dose per Bran ch injection day is 60 units. insulin Yes [id number] Per [facility] 03-22 patients ity of human 00:00: sliding [place] (HUMULIN R) 00 scale, max Me dical 100 unit/mL dose per Bran ch injection day is 60 units. insulin Yes [id number] Per [facility] regular - patients ity of human 00:00: sliding [place] (HUMULIN R) 00 scale, max Me dical 100 unit/mL dose per Bran ch injection day is 60 units. insulin Yes [id number] Per [facility] regular 03-22 patients ity of human 00:00: sliding [place] (HUMULIN R) 00 scale, max Me dical 100 unit/mL dose per Bran ch injection day is 60 units. insulin Yes [id number] Per [facility] 03-22 patients ity of human 00:00: sliding [place] (HUMULIN R) 00 scale, max Me dical 100 unit/mL dose per Bran ch injection day is 60 units. insulin Yes [id number] Per [facility] 03-22 patients ity of human 00:00: sliding [place] (HUMULIN R) 00 scale, max Me dical 100 unit/mL dose per Bran ch injection day is 60 units. insulin Yes [id number] Per [facility] regular 03-22 patients ity of human 00:00: sliding [place] (HUMULIN R) 00 scale, max Me dical 100 unit/mL dose per Bran ch injection day is 60 units. insulin Yes [id number] Per [facility] regular 03-22 patients ity of human 00:00: sliding [place] (HUMULIN R) 00 scale, max Me dical 100 unit/mL dose per Bran ch injection day is 60 units. insulin Yes [id number] Per [facility] regular 03-22 patients ity of human 00:00: sliding [place] (HUMULIN R) 00 scale, max Me dical 100 unit/mL dose per Bran ch injection day is 60 units. insulin 0 Yes [id number] Per [facility] regular 03-22 patients ity of human 00:00: sliding [place] (HUMULIN R) 00 scale, max Me dical 100 unit/mL dose per Bran ch injection day is 60 units. insulin 0 Yes [id number] Per [facility] 03-22 patients ity of human 00:00: sliding [place] (HUMULIN R) 00 scale, max Me dical 100 unit/mL dose per Bran ch injection day is 60 units. insulin 0 Yes [id number] Per [facility] 03-22 patients ity of human 00:00: sliding [place] (HUMULIN R) 00 scale, max Me dical 100 unit/mL dose per Bran ch injection day is 60 units. insulin Yes [id number] Per [facility] regular 03-22 patients ity of human 00:00: sliding [place] (HUMULIN R) 00 scale, max Me dical 100 unit/mL dose per Bran ch injection day is 60 units. insulin Yes [id number] Per [facility] regular 03-22 patients ity of human 00:00: sliding [place] (HUMULIN R) 00 scale, max Me dical 100 unit/mL dose per Bran ch injection day is 60 units. insulin Yes [id number] Per [facility] regular 03-22 patients ity of human 00:00: sliding [place] (HUMULIN R) 00 scale, max Me dical 100 unit/mL dose per Bran ch injection day is 60 units. insulin Yes [id number] Per [facility] regular 03-22 patients ity of human 00:00: sliding [place] (HUMULIN R) 00 scale, max Me dical 100 unit/mL dose per Bran ch injection day is 60 units. insulin 2022- No [id number] Per [facility] regular 03-22 01-20 patients ity of human 00:00: 00:00 sliding [...] at [place] tablet 00 bedtime. Medical Branch atorvasta 2015-0 Yes 20mg Take 1 Univ ers n (LIPITOR) 7-15 tablet by ity of 20 mg 00:00: mouth at [place] tablet 00 bedtime. [facility] Branch atorvasta 2015-0 Yes 20mg Take 1 Univ ers n (LIPITOR) 7-15 tablet by ity of 20 mg 00:00: mouth at [place] tablet 00 bedtime. Medical Branch atorvastati 2015-0 Yes 20mg Take 1 Univ ers n (LIPITOR) 7-15 tablet by ity of 20 mg 00:00: mouth at [place] tablet 00 bedtime. [facility] Branch atorvasta 0 Yes 20mg Take 1 Univ ers n (LIPITOR) 7-15 tablet by ity of 20 mg 00:00: mouth at [place] tablet 00 bedtime. [facility] Branch atorvasta 2015-0 Yes 20mg Take 1 Univ ers n (LIPITOR) 7-15 tablet by ity of 20 mg 00:00: mouth at [place] tablet 00 bedtime. Medical Branch atorvastati 0 Yes 20mg Take 1 Univ ers n (LIPITOR) 7-15 tablet by ity of 20 mg 00:00: mouth at [place] tablet 00 bedtime. [facility] Branch atorvastati 0 Yes 20mg Take 1 Univ ers n (LIPITOR) 7-15 tablet by ity of 20 mg 00:00: mouth at [place] tablet 00 bedtime. [facility] atorvastati 2015-0 Yes 20mg QD Take [address] [facility] (LIPITOR) 7-15 by mouth [place] [facility] 20 MG 00:00: daily. Medical tablet 00 [place] atorvastati 0 Yes 20mg QD Take [address] [facility] n (LIPITOR) 7-15 tablet (20 Eva kes 20 MG 00:00: mg total) Medical tablet 00 by mouth Center nightly. atorvastati 0 Yes 20mg QD Take [address] [facility] n (LIPITOR) 7-15 by mouth [place] s 20 MG 00:00: daily. Medical tablet 00 [place] atorvastati 0 Yes 20mg QD Take 1 [...] 20 MG 00:00: daily. Medical tablet 00 [place] atorvastati 2015-0 Yes 20mg QD Take [address] [facility] n (LIPITOR) 7-15 tablet (20 Eva kes 20 MG 00:00: mg total) Medical tablet 00 by mouth Center nightly. atorvastati 2015-0 Yes 20mg QD Take [address] [facility] n (LIPITOR) 7-15 by mouth Luke s 20 MG 00:00: daily. Medical tablet 00 [place] atorvastati 2015-0 Yes 20mg QD Take 1 [...] 20 MG 00:00: daily. Medical tablet 00 [place] atorvastati 2016-0 Yes 20mg QD Take [address] [facility] n (LIPITOR) 7-15 tablet (20 Eva kes 20 MG 00:00: mg total) Medical tablet 00 by mouth Center nightly. atorvastati 2016-0 Yes 20mg QD Take [address] [facility] n (LIPITOR) 7-15 by mouth [place] [facility] 20 MG 00:00: daily. Medical tablet 00 [place] atorvastati 2015-0 Yes 20mg QD Take [address] [facility] n (LIPITOR) 7-15 by mouth [place] s 20 MG 00:00: daily. Medical tablet 00 [place] atorvastati 0 Yes 20mg QD Take [address] [facility] n (LIPITOR) 7-15 tablet (20 Eva kes 20 MG 00:00: mg total) Medical tablet 00 by mouth Center nightly. atorvastati 2015-0 Yes 20mg QD Take [address] [facility] n (LIPITOR) 7-15 by mouth [place] [facility] 20 MG 00:00: daily. Medical tablet 00 [place] atorvastati 0 Yes 20mg QD Take [address] [facility] n (LIPITOR) 7-15 tablet (20 Eva kes 20 MG 00:00: mg total) Medical tablet 00 by mouth Center nightly. atorvastati 2016-0 Yes 20mg QD Take [address] [facility] n (LIPITOR) 7-15 by mouth [place] [facility] 20 MG 00:00: daily. Medical tablet 00 [place] atorvastati 2015-0 Yes 20mg QD Take [address] [facility] n (LIPITOR) 7-15 tablet (20 Eva kes 20 MG 00:00: mg total) Medical tablet 00 by mouth Center nightly. atorvastati 2016-0 Yes 20mg QD Take [address] [facility] n (LIPITOR) 7-15 by mouth [place] s 20 MG 00:00: daily. Medical tablet 00 [place] atorvastati 2015-0 Yes 20mg QD Take [address] [facility] n (LIPITOR) 7-15 by mouth [place] s 20 MG 00:00: daily. Medical tablet 00 Center atorvastati Yes 20mg QD Take [address] [facility] n (LIPITOR) 7-15 tablet (20 Eva kes 20 MG 00:00: mg total) Medical tablet 00 by mouth Center nightly. insulin Yes [id number] Use 5 Unive rs syringe-nee 7-11 times ity of dle U-100 1 00:00: daily with [place] ml (INSULIN 00 insulin Medic al SYRINGE) 1 Branch mL 29 gauge x 1/2" Syrg Blood Yes Use as Univers Pressure 7-11 directed ity of Monitor 00:00: [place] (BLOOD 00 Medical PRESSURE Branch KIT) Kit insulin Yes [id number] Use 5 Unive rs syringe-nee 7-11 times ity of dle U-100 1 00:00: daily with [place] ml (INSULIN 00 insulin Medic al SYRINGE) 1 Branch mL 29 gauge x 1/2" Syrg Blood Yes Use as Univers Pressure 7-11 directed ity of Monitor 00:00: [place] (BLOOD 00 Medical PRESSURE Branch KIT) Kit insulin Yes [id number] Use 5 Unive rs syringe-nee 7-11 times ity of dle U-100 1 00:00: daily with [place] ml (INSULIN 00 insulin Medic al SYRINGE) 1 Branch mL 29 gauge x 1/2" Syrg Blood Yes Use as Univers Pressure 7-11 directed ity of Monitor 00:00: [place] (BLOOD 00 Medical PRESSURE Branch KIT) Kit insulin Yes [id number] Use 5 Unive rs syringe-nee 7-11 times ity of dle U-100 1 00:00: daily with [place] ml (INSULIN 00 insulin Medic al SYRINGE) 1 Branch mL 29 gauge x 1/2" Syrg Blood Yes Use as Univers Pressure 7-11 directed ity of Monitor 00:00: [place] (BLOOD 00 Medical PRESSURE Branch KIT) Kit insulin Yes [id number] Use 5 Unive rs syringe-nee 7-11 times ity of dle U-100 1 00:00: daily with [place] ml (INSULIN 00 insulin Medic al SYRINGE) 1 Branch mL 29 gauge x 1/2" Syrg Blood Yes Use as Univers Pressure 7-11 directed ity of Monitor 00:00: [place] (BLOOD 00 Medical PRESSURE Branch KIT) Kit insulin 2015-0 Yes [id number] Use 5 Unive rs syringe-nee 7-11 times ity of dle U-100 1 00:00: daily with [place] ml (INSULIN 00 insulin Medic al SYRINGE) 1 Branch mL 29 gauge x 1/2" Syrg Blood Yes Use as Univers Pressure 7-11 directed ity of Monitor 00:00: [place] (BLOOD 00 Medical PRESSURE Branch KIT) Kit insulin 2015-0 Yes [id number] Use 5 Unive rs syringe-nee 7-11 times ity of dle U-100 1 00:00: daily with [place] ml (INSULIN 00 insulin Medic al SYRINGE) 1 Branch mL 29 gauge x 1/2" Syrg Blood Yes Use as Univers Pressure 7-11 directed ity of Monitor 00:00: [place] (BLOOD 00 Medical PRESSURE Branch KIT) Kit insulin 0 Yes [id number] Use 5 Unive rs syringe-nee 7-11 times ity of dle U-100 1 00:00: daily with [place] ml (INSULIN 00 insulin Medic al SYRINGE) 1 Branch mL 29 gauge x 1/2" Syrg Blood Yes Use as Univers Pressure 7-11 directed ity of Monitor 00:00: [place] (BLOOD 00 Medical PRESSURE Branch KIT) Kit insulin 2015-0 Yes [id number] Use 5 Unive rs syringe-nee 7-11 times ity of dle U-100 1 00:00: daily with [place] ml (INSULIN 00 insulin Medic al SYRINGE) 1 Branch mL 29 gauge x 1/2" Syrg Blood Yes Use as Univers Pressure 7-11 directed ity of Monitor 00:00: [place] (BLOOD 00 Medical PRESSURE Branch KIT) Kit insulin 2015-0 Yes [id number] Use 5 Unive rs syringe-nee 7-11 times ity of dle U-100 1 00:00: daily with [place] ml (INSULIN 00 insulin Medic al SYRINGE) 1 Branch mL 29 gauge x 1/2" Syrg Blood 0 Yes Use as Univers Pressure 7-11 directed ity of Monitor 00:00: [place] (BLOOD 00 Medical PRESSURE Branch KIT) Kit insulin 2015-0 Yes [id number] Use 5 Unive rs syringe-nee 7-11 times ity of dle U-100 1 00:00: daily with [place] ml (INSULIN 00 insulin Medic al SYRINGE) 1 Branch mL 29 gauge x 1/2" Syrg Blood 2015- Yes Use as Univers Pressure 7-11 directed ity of Monitor 00:00: [place] (BLOOD 00 Medical PRESSURE Branch KIT) Kit insulin 2015-0 Yes [id number] Use 5 Unive rs syringe-nee 7-11 times ity of dle U-100 1 00:00: daily with [place] ml (INSULIN 00 insulin Medic al SYRINGE) 1 Branch mL 29 gauge x 1/2" Syrg Blood 2015-0 Yes Use as Univers Pressure 7-11 directed ity of Monitor 00:00: [place] (BLOOD 00 Medical PRESSURE Branch KIT) Kit insulin 2015-0 Yes [id number] Use 5 Unive rs syringe-nee 7-11 times ity of dle U-100 1 00:00: daily with [place] ml (INSULIN 00 insulin Medic al SYRINGE) 1 Branch mL 29 gauge x 1/2" Syrg Blood Yes Use as Univers Pressure 7-11 directed ity of Monitor 00:00: [place] (BLOOD 00 Medical PRESSURE Branch KIT) Kit insulin 2015-0 Yes [id number] Use 5 Unive rs syringe-nee 7-11 times ity of dle U-100 1 00:00: daily with [place] ml (INSULIN 00 insulin Medic al SYRINGE) 1 Branch mL 29 gauge x 1/2" Syrg Blood Yes Use as Univers Pressure 7-11 directed ity of Monitor 00:00: [place] (BLOOD 00 Medical PRESSURE Branch KIT) Kit insulin 2015-0 Yes [id number] Use 5 Unive rs syringe-nee 7-11 times ity of dle U-100 1 00:00: daily with [place] ml (INSULIN 00 insulin Medic al SYRINGE) 1 Branch mL 29 gauge x 1/2" Syrg Blood 0 Yes Use as Univers Pressure 7-11 directed ity of Monitor 00:00: [place] (BLOOD 00 Medical PRESSURE Branch KIT) Kit insulin 2015-0 Yes [id number] Use 5 Unive rs syringe-nee 7-11 times ity of dle U-100 1 00:00: daily with [place] ml (INSULIN 00 insulin Medic al SYRINGE) 1 Branch mL 29 gauge x 1/2" Syrg Blood 2015-0 Yes Use as Univers Pressure 7-11 directed ity of Monitor 00:00: [place] (BLOOD 00 Medical PRESSURE Branch KIT) Kit insulin 2015-0 Yes [id number] Use 5 Unive rs syringe-nee 7-11 times ity of dle U-100 1 00:00: daily with [place] ml (INSULIN 00 insulin Medic al SYRINGE) 1 Branch mL 29 gauge x 1/2" Syrg Blood Yes Use as Univers Pressure 7-11 directed ity of Monitor 00:00: [place] (BLOOD 00 Medical PRESSURE Branch KIT) Kit insulin 2015-0 Yes [id number] Use 5 Unive rs syringe-nee 7-11 times ity of dle U-100 1 00:00: daily with [place] ml (INSULIN 00 insulin Medic al SYRINGE) 1 Branch mL 29 gauge x 1/2" Syrg Blood Yes Use as Univers Pressure 7-11 directed ity of Monitor 00:00: [place] (BLOOD 00 Medical PRESSURE Branch KIT) Kit insulin 2015-0 Yes [id number] Use 5 Unive rs syringe-nee 7-11 times ity of dle U-100 1 00:00: daily with [place] ml (INSULIN 00 insulin Medic al SYRINGE) 1 Branch mL 29 gauge x 1/2" Syrg Blood Yes Use as Univers Pressure 7-11 directed ity of Monitor 00:00: [place] (BLOOD 00 Medical PRESSURE Branch KIT) Kit insulin 2015-0 Yes [id number] Use 5 Unive rs syringe-nee 7-11 times ity of dle U-100 1 00:00: daily with [place] ml (INSULIN 00 insulin Medic al SYRINGE) 1 Branch mL 29 gauge x 1/2" Syrg Blood Yes Use as Univers Pressure 7-11 directed ity of Monitor 00:00: [place] (BLOOD 00 Medical PRESSURE Branch KIT) Kit insulin 2015-0 Yes [id number] Use 5 Unive rs syringe-nee 7-11 times ity of dle U-100 1 00:00: daily with [place] ml (INSULIN 00 insulin Medic al SYRINGE) 1 Branch mL 29 gauge x 1/2" Syrg Blood 2015-0 Yes Use as Univers Pressure 7-11 directed ity of Monitor 00:00: [place] (BLOOD 00 Medical PRESSURE Branch KIT) Kit insulin 2015-0 Yes [id number] Use 5 Unive rs syringe-nee 7-11 times ity of dle U-100 1 00:00: daily with [place] ml (INSULIN 00 insulin Medic al SYRINGE) 1 Branch mL 29 gauge x 1/2" Syrg Blood 2016-0 Yes Use as Univers Pressure 7-11 directed ity of Monitor 00:00: [place] (BLOOD 00 Medical PRESSURE Branch KIT) Kit insulin Yes [id number] Use 5 Unive rs syringe-nee 7-11 times ity of dle U-100 1 00:00: daily with [place] ml (INSULIN 00 insulin Medic al SYRINGE) 1 Branch mL 29 gauge x 1/2" Syrg Blood Yes Use as Univers Pressure 7-11 directed ity of Monitor 00:00: [place] (BLOOD 00 Medical PRESSURE Branch KIT) Kit insulin Yes [id number] Use 5 Unive rs syringe-nee 7-11 times ity of dle U-100 1 00:00: daily with [place] ml (INSULIN 00 insulin Medic al SYRINGE) 1 Branch mL 29 gauge x 1/2" Syrg Blood Yes Use as Univers Pressure 7-11 directed ity of Monitor 00:00: [place] (BLOOD 00 Medical PRESSURE Branch KIT) Kit THINPRO Yes USE 1 Univers INSULIN 4-22 [...] Yes 325 mg, Mem oria MG Enteric 2-09 PO, Daily, l Coated 17:40: # 50 tab, Stephen n Tablet 00 0 Refill(s) simvastatin 2014-07 Yes 20 mg = 1 M emoria 20 mg oral 2-09 tab, PO, l tablet 17:40: Bedtime, # Lo nn 00 30 tab, 0 Refill(s) pneumococca 2014-07 No Notes: Isidro elisa l capsular 2- (Same as: l polysacchar 17:30: Pneumovax H [...] before use Aspirin 2014-07 No Notes: Memoria 09-08 Take with l 15:00: food. [place] 00 Lisinopril 2014-07 No Notes: Memor ia 09-08 (Same as: l 15:00: Prinivil, [place] 00 Zestril) NovoLOG 2014-07 No Notes: Memoria FlexPen 09-08 Roll in l 13:30: palms of [place] 00 hands gently; Do not shake vigorously . (Same as: NovoLOG) "single patient use only" Stable for 28 days at room temperatur e. Expires in days from ____Date Insulin 2014-07 No 10 unit, Memori a regular 09-08 Route: l 13:30: SUB-Q, Buck 00 TID-Before Meals, Dosing Weight 103.182, kg, Start date: 07/08/15 7:30:00, Duration: 30 day, Stop date: 08/06/15 16:30:00 Saline 2014-07 No Notes: Memoria Flush 0.9% 09-08 (Same as: l 03:00: BD [place] 00 Posiflush) Simvastatin 2014-07 No Notes: Isidro elias - (Same as: l 03:00: Zocor) [place] 00 insulin 2014-07 No Notes: Memoria isophane-[employer] FIREARMS - Roll in l H 23:00: palms of [place] 00 hands gently; Do not shake vigorously . (Same as: NovoLIN N, Humulin N) Do not hold insulin without contacting prescriber "single patient use only" Stable for 14 days at room temperatur e Expires in days from ____Date Clonidine 2014-07 No Notes: Diana beckett Hydrochlori 2-08 (Same As: l de 0.1 MG 22:52: Catapres) Her muñoz Oral Tablet 00 Insulin, 2014-07 No Notes: Memoria Aspart, 2-08 Roll in l Human 22:49: palms of [place] 00 hands gently; Do not shake vigorously . (Same as: NovoLOG) "single patient use only" Stable for 28 days at room temperatur e. Expires in days from ____Date Dextrose 2014-07 No 12.5 gm, Memor ia 50% Syringe 2-08 25 mL, l 22:49: Route: Buck 00 [...] Roll in l Human 20:29: palms of [place] 00 hands gently; Do not shake vigorously . (Same as: NovoLOG) "single patient use only" Stable for 28 days at room temperatur e. Expires in days from ____Date Dextrose 2014-07 No 25 gm, 50 Isidro elisa 50% Syringe 2-08 mL, Route: l 20:29: IVP, Drug Buck 00 Form: INJ, Dosing Weight 103.182, kg, PRN, PRN Blood Glucose Results, Start date: 07/07/15 14:29:00, Duration: 30 day, Stop date: 08/06/15 14:28:00 Glucagon 2014-07 No 1 mg, Memoria 2-08 Route: IM, l 20:29: Drug form: [place] 00 PDR/INJ, PRN, Dosing Weight 103.182, kg, PRN Blood Glucose Results, Start date: 07/07/15 14:29:00, Duration: 30 day, Stop date: 08/06/15 14:28:00 atropine 2014-07 No 0.5 mg, 5 Isidro elisa 2-08 mL, Route: l 19:00: IVP, Drug form: INJ, PRN, PRN Bradycardi a, Start date: 07/07/15 13:00:00, Duration: 30 day, Stop date: 08/06/15 12:59:00 nitroglycer 2014-07 No Notes: Isidro elisa in 0.4 mg 09-07 (Same l sublingual 19:00: as:Nitroqu H ermann tablet 00 ick, Nitrostat) "Do Not Crush" Sublingual tablet Insulin 2014-07 No 4 unit, Memoria regular 2-08 Route: l 17:48: SUB-Q, ONCE, Dosing Weight 103.182, kg, Start date: 07/07/15 11:48:00, Stop date: 07/07/15 11:48:00 Saline 2014-07 No 10 ml, Memoria Flush 0.9% 08 Route: l 16:57: IVP, Drug Form: INJ, Dosing Weight 103.182, kg, PRN, PRN Line Flush, Start date: 07/07/15 10:57:00, Duration: 30 day, Stop date: 08/06/15 10:56:00 Aspirin 2014-07 No 325 mg, Memoria 2-08 Route: PO, l 15:12: ONCE, Buck 00 Dosing Weight 103.182, kg, Start date: 07/07/15 9:12:00, Stop date: 07/07/15 9:12:00 Saline 2014-07 No Notes: Memoria Flush 0.9% 208 (Same as: l 13:54: BD Posiflush) Acetaminoph Yes 1-2 tab, Me moria en 325 MG / 5-11 PO, Q4-6H, l Hydrocodone 22:28: PRN Pain, H ermann Bitartrate 00 X 7 day, # 10 MG Oral 50 tab, 0 Tablet Refill(s), [Commiskey other /325] Insulin, No Notes: Memoria Aspart, 5-10 Roll in l Human 14:56: palms of [place] 00 hands gently; Do not shake vigorously . (Same as: NovoLOG) "single patient use only" Stable for 28 days at room temperatur e. Expires in days from ____Date Glucagon No 1 mg, Memoria 5-10 Route: IM, l 14:56: Drug form: Buck PDR/INJ, PRN, Dosing Weight 93.636, kg, PRN [...] e 5-10 50 mL, l 14:52: Route: [place] 00 IVPB, Drug form: SOLN, Q4H, Dosing Weight 93.636, kg, PRN Nausea & Vomiting, Start date: 12/07/14 9:52:00, Duration: 30 day, Stop date: 01/06/15 9:51:00 Insulin, No Notes: Memoria Aspart, 5-10 Roll in l Human 12:45: palms of [place] 00 hands gently; Do not shake vigorously . (Same as: NovoLOG) "single patient use only" Stable for 28 days at room temperatur e. Expires in days from ____Date Lovenox No Notes: Memoria 5-10 (Same as: l 04:50: Lovenox) Buck Kayexalate No Notes: Memor ia 12-06 (sodium l 22:29: polystyren [place] 00 e sulfonate 15 gm/60 ml EMRE) Shake well before use. 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 Dose:0.2 mg ;Delay:10 min ;Basal:0 [employer]LECT[employer]IC [employer]/FIREMAN Limit: 6 [employer]LECTRIC LOC[employer]IVE [employer]/FIREMAN Hydromorph one Loading Dose: 0.4mg ELECT[employer]IC [employer]/FIREMAN Hydromorph one Dose: 0.2 mg ELECTRIC LOC[employer] FIRER/FIREMAN Hydromorph one Basal Rate: 0 mg ELECT[employer]IC [employer]/FIREMAN Lockout Parameters : 10 minutes Ancef No 1 gm, Memoria 12-06 Route: l 17:00: IVPB, [place] 00 [id number], Dosing Weight 93.636, kg, Start date: 12/06/14 12:00:00, Duration: 30 day, Stop date: 01/05/15 4:00:00 Ofirmev No Notes: Memoria 12-06 Infuse l 16:53: over 15 [place] 00 minutes Do not exceed 4gm/day of acetaminop hen MEDICATION WASTE Product Size: 1000 mg Product Wasted: _0__ mg Acetaminoph No Notes: Do M emoria en 325 MG / 12-06 not exceed l Hydrocodone 16:53: 4gm/day of [place] Bitartrate 00 acetaminop 10 MG Oral hen. (Same Tablet as: Commiskey [Commiskey 325/10) 10/325] Naloxone No Notes: Memoria 12-06 Same as l 16:52: Narcan Ondansetron No Notes: Isidro elisa 12-06 (Same as: l 16:27: Zofran) MEDICATION WASTE Product Size: 4 mg Product Wasted: _0__ mg Naloxone No Notes: Memoria 12-06 Same as l 16:27: Narcan Diphenhydra No Notes: Isidro elisa mine 12-06 (Same as: l 16:27: Benadryl) Ketorolac No 4 days Memor ia 12-06 l 16:27: MEDICATION WASTE Product Size: 30 mg Product Wasted: _0__ mg Flumazenil No Notes: Memor ia 12-06 (Same as: l 16:27: Romazicon) Morphine No Notes: Memoria 12-06 (Same l 16:27: as:MORPhin e Sulfate) Hydromorpho No Notes: Isidro elisa ne 12-06 (Same as: l 16:27: Dilaudid) Calcium No 1,000 mL, Memor ia Chloride 12-06 Rate: 25 l 0.0014 16:26: ml/hr, MEQ/ML / 00 Infuse Potassium over: 40 Chloride hr, Route: 0.004 IV, Dosing MEQ/ML / Weight Sodium 93.636 kg, Chloride Total 0.103 Volume: MEQ/ML / 1,000, Sodium Start Lactate date: 0.028 12/06/14 MEQ/ML 11:26:00, Injectable Duration: Solution 30 day, Stop date: 01/05/15 11:25:00 Calcium No 2,000 mg, Memor ia Gluconate 12-06 20 mL, l 15:37: Route: [place] 00 IVPB, ONCE, Dosing Weight 93.636, kg, Priority: STAT, Start date: 12/06/14 10:37:00, Stop date: 12/06/14 10:37:00 Kayexalate No Notes: Memor ia 12-06 (sodium l 15:37: polystyren [place] 00 e sulfonate 15 gm/60 ml EMRE) Shake well before use. (Same as: Kayexalate , SPS) Ancef No 2 gm, Memoria 12-06 Route: l 15:10: IVPB, [place] 00 ONCE, Dosing Weight 93.636, kg, Start date: 12/06/14 10:10:00, Duration: 1 doses or times, Stop date: 12/06/14 10:10:00 Humalog No Route: Memoria 12-06 SUB-Q, l 14:00: BID, [place] 00 Dosing Weight 93.636, kg, Start date: 12/06/14 9:00:00, Duration: 30 day, Stop date: 01/04/15 17:00:00 Insulin 2014-0 No 60 units) Isidro elisa regular - Stable for l 12:30: 28 days at [place] 00 room temperatur e Expires in days [...] 30 day, Stop date: 01/04/15 23:36:00 insulin 2014-0 No 60 units) Isidro elisa isophane-[employer] 12-06 Stable for l H 02:30: 28 days at [place] 00 room temperatur e Expires in days from ____Date d50 syringe No 25 gm, 50 M emoria 12-06 mL, Route: l 02:12: IV, Drug Form: INJ, Dosing Weight 93.636, kg, ONCE, Start date: 12/05/14 21:12:00, Stop date: 12/05/14 21:12:00 Lisinopril No Notes: Memor ia 12-06 (Same as: l 02:00: Prinivil, Zestril) Zofran No Notes: Memoria 12-06 (Same as: l 01:58: Zofran) MEDICATION WASTE Product Size: 4 mg Product Wasted: ___ mg insulin Yes 35 units, Memor ia isophane-[employer]ARMS 12-06 SUB-Q, l H 01:46: BID, 0 [place] 00 Refill(s) cefepime No Notes: Memoria 12-06 (Same As: l 01:00: Maxipime) MEDICATION WASTE Product Size: 1000 mg Product Wasted: ___ mg Insulin No 60 units) Isidro elisa regular 12-05 Stable for l 23:10: 28 days at room temperatur e Expires in days from ____Date Vancomycin No 1 gm, 200 Me moria 5-08 mL, Route: l 23:00: IVPB, Drug form: INJ, [id number], Dosing Weight 93.636, kg, Start date: 12/05/14 18:00:00, Duration: 30 day, Stop date: 01/04/15 6:00:00 Sodium No 25 mL, Memoria Chloride 12-05 Route: IV, l 0.9% IV 22:45: Start date: 12/05/14 17:45:00, Duration: 30 day, Stop date: 01/04/15 17:44:00, PRN Line Flush BD Normal No Notes: Memori a Saline 12-05 (Same as: l Flush 22:45: BD Posiflush) d50 syringe No 1 amp, Isidro elisa 12-05 Route: IV, l 22:40: Drug Form: INJ, Dosing Weight 93.636, kg, [...] not exceed l Hydrocodone 22:28: 4gm/day of [place] Bitartrate 00 acetaminop 10 MG Oral hen. (Same Tablet as: Commiskey [Commiskey 325/10) 10325] ceFAZolin No Notes: Memori a 5-08 Same as: l 11:00: Ancef Buck 00 Sulfamethox Yes 2 tab, PO, Memoria azole 400 5-07 BID, # 40, l MG / 15:51: 0 Buck Trimethopri 00 Refill(s) m 80 MG Oral Tablet [Bactrim] Ondansetron No Notes: Isidro elisa -08 (Same as: l 19:38: Zofran) Buck 00 MEDICATION WASTE Product Size: 4 mg Product Wasted: ___ mg Flumazenil No Notes: Memor ia 11-05 (Same as: l 19:38: Romazicon) Naloxone No Notes: Memoria 4-08 Same as l 19:38: Narcan Morphine No Notes: Memoria - (Same as: l 19:38: MORPhine Sulfate) Acetaminoph No Notes: Isidro elisa en 11-05 Infuse l 19:38: over 15 minutes Do not exceed 4gm/day of acetaminop hen MEDICATION WASTE Product Size: 1000 mg Product Wasted: ___ mg Labetalol No Notes: Memori a - (Same as: l 19:38: Normodyne, Trandate) Push over 2 minutes Give bolus over 2-3 minutes. Sodium No 1,000 mL, Memori a Chloride 11-05 Rate: 125 l 0.154 19:38: ml/hr, MEQ/ML 00 Infuse Injectable over: 8 Solution [...] Memoria regular 11-05 Route: l 15:40: SUB-Q, [place] 00 ONCE, Dosing Weight 95.455, kg, Start date: 11/05/14 10:40:00, Stop date: 11/05/14 10:40:00 lidocaine No Notes: Memori a 1% 11-05 Preservati l 15:00: ve free. Arnold (Same as: Xylocaine MPF) Ancef No Notes: Memoria 11-05 Same as: l 14:55: Ancef Buck Calcium No 1,000 mL, Memor ia Chloride 11-05 Rate: 25 l 0.0014 14:54: ml/hr, Arnold MEQ/ML / 00 Infuse Potassium over: 40 Chloride hr, Route: 0.004 IV, Dosing MEQ/ML / Weight Sodium 95.455 kg, Chloride Total 0.103 Volume: MEQ/ML / 1,000, Sodium Start Lactate date: 0.028 11/05/14 MEQ/ML 9:54:00, Injectable Duration: Solution 30 day, Stop date: 12/05/14 9:53:00 Acetaminoph Yes 1 tab, PO, Memoria en 325 MG / 03 Q4-6H, PRN l Hydrocodone 19:46: Pain, # 40 Buck Bitartrate 00 tab, 0 7.5 MG Oral Refill(s) Tablet [Commiskey 7.5/325] Bactrim DS No Notes: One M emoria 4-03 DS tablet l 16:00: = Buck 00 trimethopr im 160mg + sulfametho xazole 800 mg Dose based on trimethopr im component On empty stomach with a glass of water. 1 hr before meals (Same As: Bactrim DS, Septra DS) Sulfamethox Yes 1 tab, PO, Memoria azole 800 4-03 BID, # 30 l MG / 15:10: tab, 0 Buck Trimethopri 00 Refill(s) m 160 MG Oral Tablet [Bactrim] Loratadine No Notes: 1 Mem oria 4-02 hr before l 14:00: meals Arnold 00 (Same as: Claritin) Promethazin No 25 mg, 50 M emoria e 4-01 mL, Route: l 02:33: IVPB, Drug form: SOLN, Q6H, Dosing Weight 94.574, kg, PRN as needed for nausea/vom iting, Start date: 10/28/14 21:33:00, Duration: 30 day, Stop date: 11/27/14 21:32:00 Zofran No Notes: Memoria 4- (Same as: l 02:32: Zofran) insulin No 60 units) Isidro elisa isophane-[employer] - Stable for l H 02:00: 28 days at room temperatur e Expires in [...] Norvasc) insulin No 60 units) Isidro elisa isophane-[employer] 3-31 Stable for l H 12:30: 28 days at Arnold 00 room temperatur e Expires in days from ____Date Insulin No 60 units) Isidro elisa regular 3-30 Stable for l 22:37: 28 days at [place] 00 room temperatur e Expires in days from ____Date Dextrose No 25 gm, 50 Isidro elisa 50% Syringe 3-30 mL, Route: l 22:37: IVP, Drug Form: INJ, Dosing Weight 94.574, kg, PRN, PRN Blood Glucose Results, Start date: 10/27/14 17:37:00, Duration: 30 day, Stop date: 11/26/14 17:36:00 Glucagon No 1 mg, Memoria 3-30 Route: IM, l 22:37: Drug form: PDR/INJ, PRN, Dosing Weight 94.574, kg, PRN Blood Glucose Results, Start date: 10/27/14 17:37:00, Duration: 30 day, Stop date: 11/26/14 17:36:00 ferrous No Notes: Memoria sulfate 3-30 Give with l 14:00: food. iron elemental [id number] as ferrous sulfate Dose=___mg elemental iron Hydrochloro No Notes: Isidro elisa thiazide 3-30 (Same as: l 14:00: Hydrodiuri l) With food. insulin No 60 units) Isidro elisa isophane-[employer] 3-30 Stable for l H 13:10: 28 days at Arnold 00 room temperatur e Expires in days from ____Date Insulin No 60 units) Isidro elisa regular 3-30 Stable for l 13:09: 28 days at [place] 00 room temperatur e Expires in days from ____Date Hydralazine 2014-0 No Notes: Isidro elisa 3-30 (Same as: l 01:29: Apresoline Buck 00 ) Push over 5 minutes Vancomycin No 2000 mg: Me moria 3-28 infuse l 18:00: over 2.5 [place] 00 hours insulin 2014-0 No 60 units) Isidro elisa isophane-[employer] 3-28 Stable for l H 14:00: 28 days at [facility] 00 room temperatur e Expires in days from ____Date insulin 2014-0 No 60 units) Isidro elisa isophane-[employer] 3-28 Stable for l H 12:30: 28 days at [facility] 00 room temperatur e Expires in days from ____Date insulin 2014-0 No 60 units) Isidro elisa isophane-[employer] 3-28 Stable for l H 02:00: 28 days at [facility] 00 room temperatur e Expires in days from ____Date heparin No 5,000 Memoria 3-28 unit, l 02:00: Route: [facility] 00 SUB-Q, Q12H, Dosing Weight 94.574, kg, Start date: 10/24/14 21:00:00, Duration: 30 day, Stop date: 11/23/14 9:00:00 Insulin 2014-0 No 60 units) Isidro elisa regular 3-28 Stable for l 00:30: 28 days at [facility] 00 room temperatur e Expires in days from ____Date Insulin 2014-0 No 60 units) Isidro elisa regular 3-27 Stable for l 22:23: 28 days at [facility] 00 room temperatur e Expires in days from ____Date Glucagon 0 No 1 mg, Memoria 3-27 Route: IM, l 22:23: Drug form: Arnold 00 PDR/INJ, PRN, Dosing Weight 94.574, kg, PRN Blood Glucose Results, Start date: 10/24/14 17:23:00, Duration: 30 day, Stop date: 11/23/14 17:22:00 Dextrose 2014-0 No 12.5 gm, Memor ia 50% Syringe 3-27 25 mL, l 22:23: Route: IVP, Drug Form: INJ, Dosing Weight 94.574, kg, PRN, PRN Blood Glucose Results, Start date: 10/24/14 17:23:00, Duration: 30 day, Stop date: 11/23/14 17:22:00 insulin 2014-0 No 60 units) Isidro elisa isophane-[employer] 3-27 Stable for l H 17:04: 28 days at [place] 00 room temperatur e Expires in days from ____Date Kayexalate No Notes: Memor ia 3-27 (sodium l 16:39: polystyren e sulfonate 15 gm/60 ml EMRE) Shake well before use. (Same as: Kayexalate , SPS) Lisinopril No Notes: Memor ia 3-27 (Same as: l 14:00: Prinivil, Zestril) Humalog No Route: Memoria 3-27 SUB-Q, l 14:00: BID, Dosing Weight 94.574, kg, Start date: 10/24/14 9:00:00, Duration: 30 day, Stop date: 11/22/14 17:00:00 Miralax 2014-0 No Notes: Memoria 3-27 Dissolve l 14:00: in 8 oz of water or juice. (Same as: Miralax) insulin No 60 units) Isidro elisa isophane-[employer] 3-27 Stable for l H 13:00: 28 days at [facility] 00 room temperatur e Expires in days from ____Date Insulin 2014-0 No 60 units) Isidro elisa regular 3-27 Stable for l 12:30: 28 days at [facility] 00 room temperatur e Expires in days from ____Date NovoLOG No Notes: Memoria FlexPen - Roll in l 12:30: palms of [place] 00 hands gently; Do not shake vigorously . (Same as: NovoLOG) "single patient use only" Stable for 28 days at room temperatur e. Expires in days from ____Date Insulin No 60 units) Isidro elisa regular 10-24 Stable for l 12:27: 28 days at [facility] 00 room temperatur e Expires in days from ____Date Dextrose No 12.5 gm, Memor ia 50% Syringe 10-24 25 mL, l 12:27: Route: IVP, Drug Form: INJ, Dosing Weight 94.574, kg, PRN, PRN Blood Glucose Results, Start date: 10/24/14 7:27:00, Duration: 30 day, Stop date: 11/23/14 7:26:00 Glucagon No 1 mg, Memoria 10-24 Route: IM, l 12:27: Drug form: Bcuk 00 PDR/INJ, PRN, Dosing Weight 94.574, kg, [...] date: 11/23/14 5:20:00 Zosyn No Notes: Memoria 3-27 (Same as: l 07:00: Zosyn) Dosing based on Piperacill in component Sodium No 25 mL, Memoria Chloride 10-24 Route: IV, l 0.9% IV 06:40: Start date: 10/24/14 1:40:00, Duration: 30 day, Stop date: 11/23/14 1:39:00, PRN Line Flush BD Normal No Notes: Memori a Saline - (Same as: l Flush 06:40: BD Posiflush) Vancomycin No 1 gm, 200 Me moria 3- mL, Route: l 06:00: IVPB, Drug form: INJ, [id number], Dosing Weight 90, kg, Start date: 10/24/14 1:00:00, Duration: 30 day, Stop date: 11/22/14 13:00:00 Humalog Yes 35 units, Memor ia 10-24 SUB-Q, l 05:27: BID, 0 Refill(s) Insulin Yes 10 unit, Memori a regular 10-24 SUB-Q, l 05:27: TID-Before Arnold 00 Meals, 0 Refill(s) Dilaudid No Notes: Memoria 3-27 (Same as: l 05:01: Dilaudid) Ondansetron No Notes: Isidro elisa - (Same as: l 04:59: Zofran) Acetaminoph No Notes: Isidro elisa en 325 MG / 10-24 (Same as: l Hydrocodone 04:59: Commiskey Lo nn Bitartrate 00 325/5) Do 5 MG Oral not exceed Tablet 4gm/day of acetaminop hen. Regular Yes 10 unit, Memori a Insulin, 2-12 SUB-Q, l Human 100 19:12: TID-Before He rmann UNT/ML 00 Meals, # Injectable 10 mL, 0 Solution Refill(s) Blood Yes Special Memoria Glucose 2-12 Instructio l Test Strips 19:12: ns: For Her muñoz Accu-check Chelo Lancets Yes 1 box, Memoria 2-12 MISC, l 19:12: Daily, # 1 Buck 00 box, 0 Refill(s) Insulin Yes 1 syr, Memoria Syringes U 2-12 INJ, l 30 31 ga 19:12: ONCALL, # Herm bhavin (ultra 00 100 syr, 0 fine) Refill(s) insulin Yes 35 unit, Memori a isophane 212 SUB-Q, l human 19:12: Q12H, # 20 Stephen n recombinant 00 mL, 0 100 Refill(s) units/mL subcutaneou s injection lisinopril Yes 20 mg = 1 Me moria 20 mg oral 212 tab, PO, l tablet 19:12: Daily, # Buck 00 30 tab, 0 Refill(s) Acetaminoph Yes 1 tab, PO, Memoria en 325 MG / -12 Q6H, as l Hydrocodone 19:12: needed for Bitartrate 00 pain, # 20 10 MG Oral tab, 0 Tablet Refill(s) Sodium No 25 mL, Memoria Chloride 12 Route: IV, l 0.9% IV 15:50: Start date: 09/11/14 9:50:00, Duration: 30 day, Stop date: 10/11/14 10:49:00, PRN Line Flush BD Normal No Notes: Memori a Saline -12 (Same as: l Flush 15:50: BD Posiflush) Lisinopril No Notes: Memor ia 2-12 (Same as: l 15:39: Prinivil, Zestril) NPH No 60 units) Memoria Insulin, 2-12 Stable for l Pork 03:00: 28 days at [facility] 00 room temperatur e Expires in days from ____Date Insulin, No 60 units) Mem oria Regular, 2-11 Stable for l Pork 22:30: 28 days at [facility] room temperatur e Expires in days from ____Date Bisacodyl No Notes: Memori a 2-11 (Same As: l 18:00: Dulcolax, Buck 00 Correctol) (Do Not Crush) "Do Not Crush" Insulin, No 60 units) Mem oria Regular, 2-11 Stable for l Pork 17:39: 28 days at [facility] 00 room temperatur e Expires in days from ____Date Dextrose No 25 gm, 50 Isidro elisa 50% Syringe 2-11 mL, Route: l 17:39: IVP, Drug Form: INJ, Dosing Weight 90, kg, PRN, PRN Blood Glucose Results, Start date: 09/10/14 11:39:00, Duration: 30 day, Stop date: 10/10/14 12:38:00 Glucagon No 1 mg, Memoria 09-10 Route: IM, l 17:39: Drug form: Buck 00 PDR/INJ, PRN, Dosing Weight 90, kg, PRN Blood Glucose Results, Start date: 09/10/14 11:39:00, Duration: 30 day, Stop date: 10/10/14 12:38:00 Acetaminoph No Notes: Do M emoria en 325 MG / 11 not exceed l Hydrocodone 01:18: 4gm/day of Buck Bitartrate 00 acetaminop 10 MG Oral hen. (Same Tablet as: Commiskey 325/10) Albuterol No Notes: SEE Me moria 0.83 MG/ML 2-10 RT l Inhalant 23:53: DOCUMENTAT Her muñoz Solution 00 ION (Same as: Proventil) Diphenhydra No Notes: Isidro elisa mine 2-10 (Same as: l 23:53: Benadryl) Arnold Atropine No 0.2 mg, 2 Isidro elisa [...] 2-10 Rate: 125 l 0.154 23:53: ml/hr, Arnold MEQ/ML 00 Infuse Injectable over: 8 Solution hr, Route: IV, Dosing Weight 90 kg, Total Volume: 1,000, Start date: 09/09/14 17:53:00, Duration: 1 day, Stop date: 09/10/14 17:52:00 Sodium No 250 mL, Memoria Chloride 2-10 Rate: On l 0.9% 20:40: call for Buck (titrate) 00 use with 250 mL blood product administra tion, Dosing Weight 90, kg, Route: IV, Total Volume: 250, Start Date: 09/09/14 14:40:00, Duration: 1 day, Stop date: 09/10/14 14:39:00, Replace Every: 24 hr Lisinopril No Notes: Memor ia 2-10 (Same as: l 15:00: Prinivil, Buck 00 Zestril) Novolin R No 60 units) Me moria 2-10 Stable for l 15:00: 28 days at [facility] 00 room temperatur e Expires in days from ____Date Novolin N No 60 units) Me moria 2-10 Stable for l 15:00: 28 days at [facility] 00 room temperatur e Expires in days from ____Date Cleocin HCl No Notes: Isidro elisa 2-10 (Same As: l 15:00: Cleocin) Buck 00 Cipro No Notes: May Memori a 2-10 interfere l 15:00: w/enteral Buck 00 feedings - Take 1 hr before or 2 hrs after antacids, dairy pdt & minerals. On empty stomach. heparin No 5,000 Memoria sodium, 2-10 unit, l porcine 15:00: Route: Buck 2500 UNT/ML 00 SUB-Q, Injectable Drug form: [...] elisa 2-10 (clindamyc l 08:00: in 150 Buck 00 mg/1 ml (600 mg/4 ml VL) INJ) (Same As: Cleocin) Cipro No Notes: Do Memoria 2-10 not l 08:00: refrigerat Arnold 00 e Glucagon No 1 mg, Memoria 2-10 Route: IM, l 07:11: Drug form: Buck 00 PDR/INJ, PRN, Dosing Weight 90, kg, PRN Blood Glucose Results, Start date: 09/09/14 1:11:00, Duration: 30 day, Stop date: 10/09/14 2:10:00 Dextrose No 25 gm, 50 Isidro elisa 50% Syringe 2-10 mL, Route: l 07:11: IVP, Drug Form: INJ, Dosing Weight 90, kg, PRN, PRN Blood Glucose Results, Start date: 09/09/14 1:11:00, Duration: 30 day, Stop date: 10/09/14 2:10:00 Insulin, No Notes: Memoria Aspart, 2-10 Roll in l Human 07:11: palms of Arnold 00 hands gently; Do not shake vigorously . (Same as: NovoLOG) "single patient use only" Stable for 28 days at room temperatur e. Expires in days from ____Date Sodium No 1,000 mL, Memori a Chloride 2-10 Rate: 75 l 0.154 07:10: ml/hr, Arnold MEQ/ML 00 Infuse Injectable over: 13.3 Solution hr, Route: IV, Dosing Weight 90 kg, Total Volume: 1,000, Start date: 09/09/14 1:10:00, Duration: 30 day, Stop date: 10/09/14 1:09:00 Saline No Notes: Memoria Flush 0.9% 2-10 (Same as: l 07:10: BD Arnold Posiflush) Morphine No Notes: Memoria 2-10 (Same l 07:10: as:MORPhin Buck 00 e Sulfate) Acetaminoph No Notes: Do M emoria en 325 MG / 2-10 not exceed l Hydrocodone 07:10: 4gm/day of Arnold Bitartrate 00 acetaminop 10 MG Oral hen. (Same Tablet as: Commiskey 325/10) Ondansetron No Notes: Isidro elisa 2-10 (Same as: l 07:10: Zofran) Buck Acetaminoph No Notes: Do M emoria en 2-10 not exceed l 07:10: 4 gm/day. Arnold 00 (Same as: Tylenol) Hydromorpho No Notes: Isidro elisa ne 2-10 (Same as: l 06:49: Dilaudid) Acetaminoph Yes 1 tab, PO, Memoria en 325 MG / 2-10 Q4H, for l Hydrocodone 03:53: pain, 0 Her muñoz Bitartrate 00 Refill(s) 7.5 MG Oral Tablet [Commiskey 7.5/325] Ciprofloxac Yes 500 mg = 1 Memoria in 500 MG 2-10 tab, PO, l Oral Tablet 03:53: BID, # 28 H ermann [Cipro] 00 tab, 0 Refill(s) lisinopril No 10 mg = 1 Me moria 10 mg oral 2-10 tab, PO, l tablet 03:53: Daily, # Arnold 00 30 tab, 0 Refill(s) clindamycin Yes 300 mg = 1 Memoria 300 mg oral 2-10 cap, PO, l capsule 03:53: QID, # 56 Lo nn 00 cap, 0 Refill(s) Novolin R No 25 units, Mem oria 2-10 SUB-Q, l 03:53: BID, 0 Buck 00 Refill(s) Novolin N No 25 unit, Isidro elisa 2-10 SUB-Q, l 03:53: BID, 0 Arnold 00 Refill(s) Regular No 5 unit, Memoria Insulin, 04 Route: IV, l Human 100 16:00: Lo CRUZ nn UNT/ML 00 Dosing Injectable Weight Solution 97.727, [Humulin R] kg, Start date: 09/03/14 10:00:00 Ondansetron No Notes: Isidro elisa 2-04 (Same as: l 13:48: Zofran) Diphenhydra No Notes: Isidro elisa mine 2-04 (Same as: l 13:48: Benadryl) Ephedrine No Notes: Memori a 2-04 (Same as: l 13:48: ePHEDrine Sulfate) Naloxone No Notes: Memoria 2-04 Same as l 13:48: Narcan Meperidine No Notes: Memor ia 2-04 (Same As: l 13:48: Demerol) Flumazenil No Notes: Memor ia 2-04 (Same as: l 13:48: Romazicon) Morphine No Notes: Memoria 2-04 (Same as: l 13:48: MORPhine Sulfate) Hydromorpho No Notes: Isidro elisa ne 2-04 (Same as: l 13:48: Dilaudid) Promethazin No Notes: Do M emoria e 2-04 not give l 13:48: IV push. Arnold (Same as: Phenergan) Labetalol No Notes: Memori a 2-04 (Same as: l 13:48: Normodyne, Trandate) Push over 2 minutes Give bolus over 2-3 minutes. Sodium No 1,000 mL, Memori a Chloride 2-04 Rate: 125 l 0.154 13:48: ml/hr, Arnold MEQ/ML 00 Infuse Injectable over: 8 Solution hr, Route: IV, Dosing Weight 97.727 kg, Total Volume: 1,000, Start date: 09/03/14 7:48:00, Duration: 30 day, Stop date: 10/03/14 7:47:00 Lidocaine No Notes: Memori a Hydrochlori 2-04 Preservati l de 10 MG/ML 13:00: ve free. He rmann Injectable 00 (Same as: Solution Xylocaine MPF) Sodium No 1,000 mL, Memori a Chloride 2-04 Rate: 25 l 0.154 12:28: ml/hr, Buck MEQ/ML 00 Infuse Injectable over: 40 Solution hr, Route: IV, Dosing Weight 97.727 kg, Total Volume: 1,000, Start date: 09/03/14 6:28:00, Duration: 30 day, Stop date: 10/03/14 6:27:00 Unknown Yes PO, Memoria Home 2 Refill(s) l Medication 12:25: 0 Lisinopril Yes PO, Daily, M emoria 2-04 0 l 12:24: Refill(s) antibiotic Yes antibiotic M emoria 2-03 , l 17:37: Refill(s) 0 insulin Yes insulin, Memori a 2-03 Refill(s) l 17:37: 0 insulin No Agadadash 8 unit, Me moria regular 100 5-24 Kuliev 0.08 mL, l units/mL 04:24: Route: Arnold human 00 SUB-Q, recombinant Drug form: SOLN, Sliding Scale, PRN Blood Glucose Results, Start date: 12/20/12 23:24:00, Stop date: 01/19/13 23:23:00 insulin No Agadadash 6 unit, Me moria regular 100 5-24 Kuliev 0.06 mL, l units/mL 04:23: Route: Arnold human 00 SUB-Q, recombinant Drug form: SOLN, Sliding Scale, PRN Blood Glucose Results, Start date: 12/20/12 23:23:00, Stop date: 01/19/13 23:22:00 Dextrose No Agadadash 25 mL, Me moria 50% in 5-24 Kuliev Route: l Water IV 04:23: IVP, Start Her date: 12/20/12 23:23:00, Duration: 30 day, Stop date: 01/19/13 23:22:00, PRN Blood Glucose Results lisinopril Yes Agadadash 5 mg, 1 Memoria 5 mg oral 5-23 Kuliev tab, PO, l tablet 14:06: Daily, 30 Stephen n 52 tab, 4, 4, Substituti on Allowed, TAB NovoLog Mix Yes Agadadash 35 unit, Memoria 70/30 5-23 Kuliev SUB-Q, l FlexPen 13:47: BID-Before Herm bhavin subcutaneou 04 Meals, 3 s pen(s), 3, suspension 3, Substituti on Allowed, SUSP NovoLog Mix No Agadadash 40 unit, Memoria 70/30 5-23 Kuliev 0.4 mL, l FlexPen 12:30: Route: Buck 00 SUB-Q, Drug form: INJ, Before Breakfast, Dosing Weight 91.818, kg, Start date: 12/20/12 7:30:00, Stop date: 01/18/13 7:30:00 NovoLog Mix 2012-0 No Agadadash 35 unit, Memoria 70/30 5-22 Kuliev 0.35 mL, l 21:30: Route: Arnold 00 SUB-Q, Drug form: INJ, Before Dinner, Dosing Weight 91.818, kg, Start date: 12/19/12 16:30:00, Stop date: 01/17/13 16:30:00 acetaminoph 2012- No Merlin P 1 tab, Memoria en-hydrocod 12-19 Soefer Route: PO, l one 325 18:18: Drug Form: Herm bhavin mg-7.5 mg 00 TAB, oral tablet Dosing Weight 91.818, kg, Q4H, PRN Pain Score 1-3, Start date: 12/19/12 13:18:00, Duration: 30 day, Stop date: 01/18/13 13:17:00 Insulin 2012-0 No Mauricio I 15 unit, Me moria regular 5-22 Nathan 0.15 mL, l 17:03: Route: Arnold 00 SUB-Q, Drug form: SOLN, TID-Before Meals, Dosing Weight 91.818, kg, PRN Blood Glucose Results, Start date: 12/19/12 12:03:00, Duration: 30 day, Stop date: 01/18/13 12:02:00 ondansetron 2012- No Mauricio I 4 mg, 2 Memoria 5-22 Nathan mL, Route: l 17:03: IVP, Drug Buck 00 form: INJ, ONCE, Dosing Weight 91.818, kg, PRN Nausea & Vomiting, Start date: 12/19/12 12:03:00 promethazin 2012-0 No Mauricio I 6.25 mg, Memoria e + Sodium 5-22 Nathan 0.25 mL, l Chloride 17:03: Route: Buck 0.9% IV 50 00 IVPB, mL ONCE, Dosing Weight 91.818, kg, PRN Nausea & Vomiting, Start date: 12/19/12 12:03:00 morphine No Mauricio I 2 mg, 0.25 Memoria Sulfate 5-22 Nathan mL, Route: l 17:03: IVP, Drug form: INJ, Q5Min, Dosing Weight 91.818, kg, PRN Pain Score 4-6, Start date: 12/19/12 12:03:00, Duration: 5 doses or times, Stop date: Limited # of times meperidine No Mauricio I 12.5 mg, Memoria 5-22 Nathan 0.25 mL, l 17:03: Route: Buck 00 IVP, Drug form: INJ, Q30Min, Dosing Weight 91.818, kg, PRN Other -See Comment, For shivering, Start date: 12/19/12 12:03:00, Duration: 2 doses or times, Stop date: Limited # of times flumazenil No Mauricio I 0.2 mg, 2 Memoria 5-22 Nathan mL, Route: l 17:03: IVP, Drug form: INJ, PRN, Dosing Weight 91.818, kg, PRN Benzodiaze pine Reversal, Initial dose, Start date: 12/19/12 12:03:00, Duration: 30 day, Stop date: 01/18/13 12:02:00 naloxone No Mauricio I 0.04 mg, M emoria 5-22 Nathan 0.1 mL, l 17:03: Route: Arnold 00 IVP, Drug form: INJ, Q2MIN, Dosing Weight 91.818, kg, PRN Narcotic Reversal, Start date: 12/19/12 12:03:00, Duration: 8 doses or times, Stop date: Limited # of times Sodium No Mauricio I 1,000 mL, Me moria Chloride 5-22 Nathan Rate: 50 l 0.9% IV 17:03: ml/hr, Buck 1,000 mL 00 Infuse over: 20 hr, [...] or times, Stop date: 12/19/12 12:03:00 acetaminoph 2012- No Mauricio I 1,000 mg, Memoria en 10 mg/mL 5-22 Nathan 100 mL, l intravenous 17:03: Route: IV, Buck solution Drug form: INJ, ONCE, Dosing Weight 91.818, kg, PRN Pain Score 4-6, Start date: 12/19/12 12:03:00, Duration: 1 doses or times, Stop date: Limited # of times, Infuse over 15 minutes (for patient weight 50 kg or greater)In fuse over 15 minutes (for patient weight 50 kg or greater) NovoLog Mix No Agadadash 25 unit, Memoria 70/30 5-22 Kuliev 0.25 mL, l FlexPen 12:30: Route: SUB-Q, Drug form: INJ, ONCE, Dosing Weight 91.818, kg, Start date: 12/19/12 7:30:00, Stop date: 12/19/12 7:30:00 NovoLog Mix No Agadadash 35 unit, Memoria 70/30 5-21 Kuliev 0.35 mL, l 21:30: Route: SUB-Q, Drug form: INJ, Before Dinner, Dosing Weight 91.818, kg, Start date: 12/18/12 16:30:00, Duration: 30 day, Stop date: 01/16/13 16:30:00 lisinopril 2012- No Agadadash 5 mg, 1 Memoria 5-21 Kuliev tab, l 14:00: Route: PO, Drug form: TAB, Daily, Dosing Weight 91.818, kg, Start date: 12/18/12 9:00:00, Duration: 30 day, Stop date: 01/16/13 9:00:00 NovoLog Mix 2012-0 No Agadadash 35 unit, Memoria 70/30 5-21 Kuliev 0.35 mL, l 12:30: Route: Buck 00 SUB-Q, Drug form: INJ, Before Breakfast, Dosing Weight 91.818, kg, Start date: 12/18/12 7:30:00, Duration: 30 day, Stop date: 01/16/13 7:30:00 Sodium 2012-0 No Agadadash 25 mL, Isidro elisa Chloride 5-21 Kuliev Route: IV, l 0.9% IV 06:30: Start Buck 00 date: 12/18/12 1:30:00, Duration: 30 day, Stop date: 01/17/13 1:29:00, PRN Line Flush BD Normal 2012-0 No Agadadash 10 mL, M emoria Saline -21 Kuliev Route: IV, l Flush 06:30: Drug Form: Stephen n 00 INJ, PRN, PRN Line Flush, Start date: [...] 5-18 Kuliev 0.25 mL, l 12:30: Route: Arnold 00 SUB-Q, Drug form: INJ, Before Breakfast, Dosing Weight 91.818, kg, Start date: 12/15/12 7:30:00, Duration: 30 day, Stop date: 01/13/13 7:30:00 NovoLog Mix 2012-0 No Agadadash 25 unit, Memoria 70/30 5-18 Kuliev 0.25 mL, l 00:30: Route: Arnold 00 SUB-Q, Drug form: INJ, Before Dinner, Dosing Weight 91.818, kg, Start date: 12/14/12 19:30:00, Duration: 30 day, Stop date: 01/13/13 16:30:00 calcium 2012-0 No Agadadash 1,000 mg, Memoria gluconate + 5-18 Kuliev 10 mL, l Sodium 00:16: Route: Buck Chloride 00 IVPB, 0.9% IV 50 ONCE, PRN mL Abnormal Lab Result, Start date: 12/14/12 19:16:00 glucagon 2012-0 No Agadadash 1 mg, Mem oria 5-17 Kuliev Route: IM, l 23:34: Drug form: Arnold 00 PDR/INJ, PRN, Dosing Weight 91.818, kg, PRN Blood Glucose Results, Start date: 12/14/12 18:34:00, Duration: 30 day, Stop date: 01/13/13 18:33:00 Dextrose 2012-0 No Agadadash 12.5 gm, Memoria 50% Syringe 5-17 Kuliev 25 mL, l 23:34: Route: Arnold 00 IVP, Drug Form: INJ, Dosing Weight [...] Duration: 30 day, Stop date: 01/13/13 18:33:00 Commiskey 5/325 2012- No Agadadash 1 tab, Memoria oral tablet 5-17 Kuliev Route: PO, l 23:00: Drug Form: Arnold 00 TAB, Dosing Weight 91.818, kg, Q4H, PRN Pain, Start date: 12/14/12 18:00:00, Duration: 30 day, Stop date: 01/13/13 17:59:00 vancomycin 2012-0 No Fede M 1 gm, 200 Memoria 5-17 Reyes mL, Route: l 23:00: IVPB, Drug Buck 00 form: INJ, [id number], Dosing Weight 91.818, kg, Start date: 12/14/12 18:00:00, Duration: 30 day, Stop date: 01/13/13 10:00:00 NS 1,000 mL 2012- No Agadadash 1,000 mL, Memoria 5-17 Kuliev Rate: 75 l 22:57: ml/hr, Infuse over: 13.3 hr, Route: IV, Dosing Weight 91.818 kg, Total Volume: 1,000, Start date: 12/14/12 17:57:00, Duration: 30 day, Stop date: 01/13/13 17:56:00 Tylenol No Agadadash 325 mg, 1 Memoria 5-17 Kuliev tab, l 22:56: Route: PO, Buck 00 Drug form: TAB, Q6H, Dosing Weight 91.818, kg, PRN Pain, Start date: 12/14/12 17:56:00, Duration: 30 day, Stop date: 01/13/13 17:55:00 Vasotec No Agadadash 0.625 mg, Memoria 5-17 Kuliev 0.5 mL, l 22:56: Route: Arnold 00 IVP, Drug form: INJ, Q6H, Dosing Weight 91.818, kg, PRN Hypertensi on, Start date: 12/14/12 17:56:00, Duration: 30 day, Stop date: 01/13/13 17:55:00, for systolic BP above 160 magnesium No Agadadash 2 gm, 50 Memoria sulfate 5-17 Kuliev mL, Route: l 22:56: IVPB, Drug form: INJ, ONCE, Dosing Weight 91.818, kg, PRN Abnormal Lab Result, Total dose = 2 gm, Start date: 12/14/12 17:56:00, Duration: 1 doses or times, Stop date: Limited # of times, for magnesium below 1.7 Phenergan + No Agadadash 25 mg, 1 Memoria Sodium 5-17 Kuliev mL, Route: l Chloride 22:56: IVP Buck 0.9% IV 50 00 Central, mL Q6H, Dosing Weight 91.818, kg, PRN Nausea & Vomiting, Start date: 12/14/12 17:56:00, Duration: 30 day, Stop date: 01/13/13 17:55:00 Ambien 2012-0 No Agadadash 5 mg, 1 Mem oria 5-17 Kuliev tab, l 22:56: Route: PO, Buck 00 Drug form: TAB, Bedtime, Dosing Weight 91.818, kg, PRN Insomnia, Start date: 12/14/12 17:56:00, Duration: 30 day, Stop date: 01/13/13 17:55:00 clonidine 2012- No Agadadash 0.1 mg, 1 Memoria 0.1 mg oral 5-17 Kuliev tab, l tablet 22:56: Route: PO, Lo nn 00 Drug form: TAB, Q8H, Dosing Weight 91.818, kg, PRN Hypertensi on, Start date: 12/14/12 17:56:00, Duration: 30 day, Stop date: 01/13/13 17:55:00, FOR SYSTOLIC BLOOD PRESSURE OVER 150 calcium 2012- No Agadadash 1,000 mg, Memoria chloride 5-17 Kuliev Route: l 22:56: IVPB, Buck 00 ONCE, Dosing Weight 91.818, kg, PRN, Priority: Routine, Start date: 12/14/12 17:56:00, Calcium less than 7.5 potassium No Agadadash 40 mEq, 2 Memoria chloride 5-17 Kuliev tab, l 22:56: Route: PO, Buck 00 Drug form: ERTAB, ONCE, Dosing Weight 91.818, kg, PRN Abnormal Lab Result, Priority: Routine, Start date: 12/14/12 17:56:00, potassium less than 3.5 albuterol No Agadadash 2.49 mg, 3 Memoria 0.083% 5-17 Kuliev mL, Route: l inhalation 22:56: NEB, Drug He rmann solution 00 form: SOLN, RQ6H, Dosing Weight 91.818, kg, PRN Wheezing, Start date: 12/14/12 17:56:00, Duration: 30 day, Stop date: 01/13/13 17:55:00 acetaminoph No Agadadash 1 tab, Memoria en-hydrocod 12-14 Malgorzata Route: PO, l one 325 22:21: Drug Form: Herm bhavin mg-7.5 mg 00 TAB, Q4H, oral tablet PRN Pain, Start date: 12/14/12 17:21:00, Duration: 30 day, Stop date: 01/13/13 17:20:00 Dialyvite Dialyvite No Dialyvite [facility] 800 0.8 [...] MEAL MEAL cholecalcif cholecalcif No cholecalci [facility] ray ray [...] A DAY VIA GTUBE TWICE A DAY Immunizations Ordered Filled Date Status Comments Source Immunization Name Immunization Name influenza, influenza, 2018-04-24 Completed [facility], injectable, 00:00:00 quadrivalent, quadrivalent, preservative free preservative free influenza, influenza, 2018-04-24 Completed [facility] injectable, injectable, 00:00:00 quadrivalent, quadrivalent, preservative free preservative free influenza, influenza, 2018-04-24 Completed [facility] injectable, injectable, 00:00:00 quadrivalent, quadrivalent, preservative free preservative free influenza, influenza, 2018-04-24 Completed [facility] injectable, injectable, 00:00:00 quadrivalent, quadrivalent, preservative free preservative free influenza, influenza, 2018-04-24 Completed [facility] injectable, injectable, 00:00:00 quadrivalent, quadrivalent, preservative free preservative free influenza, influenza, 2018-04-24 Completed [facility] injectable, injectable, 00:00:00 quadrivalent, quadrivalent, preservative free preservative free Influenza Virus 2018-04-24 Completed [facility]:00:00 [facility] Influenza Virus 2018-04-24 Completed [facility]+ 00:00:00 [facility] Influenza Virus 2018-04-24 Completed [facility] IM 3+ 00:00:00 [facility] Influenza Virus 2018-04-24 Completed [facility] IM 3+ 00:00:00 [facility] Influenza Virus 2018-04-24 Completed [facility] Quad IM 3+ 00:00:00 [facility] Influenza Virus 2018-04-24 Completed [facility] IM 3+ 00:00:00 [facility] Influenza Virus 2018-04-24 Completed [facility] IM 3+ 00:00:00 [facility] Influenza Virus 2018-04-24 Completed [facility] Quad IM 3+ 00:00:00 [facility] Influenza Virus 2018-04-24 Completed [facility] IM 3+ 00:00:00 [facility] Influenza Virus 2018-04-24 Completed [facility] Quad IM 3+ 00:00:00 [facility] Influenza Virus 2018-04-24 Completed [facility] Quad IM 3+ 00:00:00 [facility] Influenza Virus 2018-04-24 Completed [facility] Quad IM 3+ 00:00:00 [facility] Influenza Virus 2018-04-24 Completed [facility] IM 3+ 00:00:00 [facility] Influenza Virus 2018-04-24 Completed [facility] Quad IM 3+ 00:00:00 [facility] Influenza Virus 2018-04-24 Completed [facility] Quad IM 3+ 00:00:00 [facility] Influenza Virus 2018-04-24 Completed [facility] Quad IM 3+ 00:00:00 [facility] Influenza Virus 2018-04-24 Completed [facility] Vaccine [facility] IM 3+ 00:00:00 [facility] Influenza Virus 2018-04-24 Completed [facility] Vaccine [facility] IM 3+ 00:00:00 [facility] Influenza Virus 2018-04-24 Completed [facility] Vaccine [facility] IM 3+ 00:00:00 [facility] Influenza Virus 2018-04-24 Completed [facility] Vaccine [facility] IM 3+ 00:00:00 [facility] Influenza Virus 2018-04-24 Completed [facility] Vaccine [facility] IM 3+ 00:00:00 [facility] Influenza Virus 2018-04-24 Completed [facility] Vaccine [facility] IM 3+ 00:00:00 [facility] Influenza Virus 2018-04-24 Completed [facility] Vaccine [facility] IM 3+ 00:00:00 [facility] Influenza Virus 2018-04-24 Completed [facility] Vaccine [facility] IM 3+ 00:00:00 [facility] Influenza Four-QIV 2018-04-24 [facility] PF [facility] IM 00:[facility]:00 [facility] Influenza Four-QIV 2018-04-24 Completed [facility] PF 3+YR IM 00:00:00 [facility] Influenza Four-QIV 2018-04-[address] [facility] PF 3+YR IM 00:00:00 [facility] Influenza Four-QIV 2018-04-[address] [facility] PF 3+YR IM 00:00:00 [facility] Influenza Four-QIV 2018-04-[address] [facility] PF 3+YR IM 00:00:00 [facility] Influenza Virus 2015-07-08 Completed [facility]it [facility] of Vaccine 00:00:00 [facility] Pneumococcal 2015-07-08 Completed University o f Polysaccharide, 00:00:00 [place] [facility] PPSV23 (PNEUMOVAX) [facility] Influenza Virus 2015-07-08 Completed [facility] of Vaccine 00:00:00 [facility] Pneumococcal 2015-07-08 Completed University o f Polysaccharide, 00:00:00 [place] [facility] PPSV23 (PNEUMOVAX) Branch Influenza Virus 2015-07-08 Completed [facility] y of Vaccine 00:00:00 [facility] Pneumococcal 2015-07-08 Completed University o f Polysaccharide, 00:00:00 [place] [facility] PPSV23 (PNEUMOVAX) Branch Influenza Virus 2015-07-08 Completed [facility] of Vaccine 00:00:00 [facility] Pneumococcal 2015-07-08 Completed University o f Polysaccharide, 00:00:00 [place] [facility] PPSV23 (PNEUMOVAX) Branch Influenza Virus 2015-07-08 Completed [facility] of Vaccine 00:00:00 [facility] Pneumococcal 2015-07-08 Completed University o f Polysaccharide, 00:00:00 [place] [facility] PPSV23 (PNEUMOVAX) Branch Influenza Virus 2015-07-08 Completed [facility] of Vaccine 00:00:00 [facility] Pneumococcal 2015-07-08 Completed University o f Polysaccharide, 00:00:00 [place] [facility] PPSV23 (PNEUMOVAX) Branch Influenza Virus 2015-07-08 Completed [facility] of Vaccine 00:00:00 [facility] Pneumococcal 2015-07-08 Completed University o f Polysaccharide, 00:00:00 [place] [facility] PPSV23 (PNEUMOVAX) Branch Influenza Virus 2015-07-08 Completed [facility] of Vaccine 00:00:00 [facility] Pneumococcal 2015-07-08 Completed [facility] o f Polysaccharide, 00:00:00 [place] [facility] PPSV23 (PNEUMOVAX) Branch Influenza Virus 2015-07-08 Completed [facility] of Vaccine 00:00:00 [facility] Pneumococcal 2015-07-08 Completed [facility] o f Polysaccharide, 00:00:00 [place] [facility] PPSV23 (PNEUMOVAX) Branch Influenza Virus 2015-07-08 Completed [facility] of Vaccine 00:00:00 [facility] Pneumococcal 2015-07-08 Completed [facility] o f Polysaccharide, 00:00:00 [place] [facility] PPSV23 (PNEUMOVAX) Branch Influenza Virus 2015-07-08 Completed [facility] of Vaccine 00:00:00 [facility] Pneumococcal 2015-07-08 Completed [facility] o f Polysaccharide, 00:00:00 [place] [facility] PPSV23 (PNEUMOVAX) Branch Influenza Virus 2015-07-08 Completed [facility] of Vaccine 00:00:00 [facility] Pneumococcal 2015-07-08 Completed University o f Polysaccharide, 00:00:00 [place] [facility] PPSV23 (PNEUMOVAX) Branch Influenza Virus 2015-07-08 Completed [facility] of Vaccine 00:00:00 [facility] Pneumococcal 2015-07-08 Completed University o f Polysaccharide, 00:00:00 [place] [facility] PPSV23 (PNEUMOVAX) Branch Influenza Virus 2015-07-08 Completed [facility] of Vaccine 00:00:00 [facility] Pneumococcal 2015-07-08 Completed University o f Polysaccharide, 00:00:00 [place] [facility] PPSV23 (PNEUMOVAX) Branch Influenza Virus 2015-07-08 Completed [facility] of Vaccine 00:00:00 [facility] Pneumococcal 2015-07-08 Completed University o f Polysaccharide, 00:00:00 [place] [facility] PPSV23 (PNEUMOVAX) Branch Influenza Virus 2015-07-08 Completed [facility] of Vaccine 00:00:00 [facility] Pneumococcal 2015-07-08 Completed University o f Polysaccharide, 00:00:00 [place] [facility] PPSV23 (PNEUMOVAX) Branch Influenza Virus 2015-07-08 Completed [facility] of Vaccine 00:00:00 [facility] Pneumococcal 2015-07-08 Completed University o f Polysaccharide, 00:00:00 [place] [facility] PPSV23 (PNEUMOVAX) Branch Influenza Virus 2015-07-08 Completed [facility] of Vaccine 00:00:00 [facility] Pneumococcal 2015-07-08 Completed [facility] o f Polysaccharide, 00:00:00 [place] [facility] PPSV23 (PNEUMOVAX) Branch Influenza Virus 2015-07-08 Completed [facility] of Vaccine 00:00:00 [facility] Pneumococcal 2015-07-08 Completed University o f Polysaccharide, 00:00:00 [place] [facility] PPSV23 (PNEUMOVAX) Branch Influenza Virus 2015-07-08 Completed [facility] of Vaccine 00:00:00 [facility] Pneumococcal 2015-07-08 Completed University o f Polysaccharide, 00:00:00 [place] [facility] PPSV23 (PNEUMOVAX) Branch Influenza Virus 2015-07-08 Completed [facility] of Vaccine 00:00:00 [facility] Pneumococcal 2015-07-08 Completed University o f Polysaccharide, 00:00:00 [place] [facility] PPSV23 (PNEUMOVAX) Branch Influenza Virus 2015-07-08 Completed [facility] of Vaccine 00:00:00 [facility] Pneumococcal 2015-07-08 Completed University o f Polysaccharide, 00:00:00 [place] [facility] PPSV23 (PNEUMOVAX) Branch Influenza Virus 2015-07-08 Completed [facility] of Vaccine 00:00:00 [facility] Pneumococcal 2015-07-08 Completed University o f Polysaccharide, 00:00:00 [place] [facility] PPSV23 (PNEUMOVAX) Branch Influenza Virus 2015-07-08 Completed [facility] of Vaccine 00:00:00 [facility] Pneumococcal 2015-07-08 Completed University o f Polysaccharide, 00:00:00 [place] [facility] PPSV23 (PNEUMOVAX) Branch Influenza Four-QIV Unknown Completed [facility] PF 3+YR [facility] Influenza Four-QIV Unknown Completed [facility]+YR [facility] Influenza Four-QIV Unknown Completed [facility] PF 3+YR [facility] Influenza Four-QIV Unknown Completed [facility] PF 3+YR [facility] Influenza Four-QIV Unknown Completed [facility] PF 3+YR [facility] Influenza Four-QIV Unknown Completed [facility] PF 3+YR [facility] Influenza Four-QIV Unknown Completed [facility] PF 3+YR [facility] influenza virus Unknown Completed [facility] vaccine, inactivated pneumococcal Unknown Completed [facility] 23-valent vaccine pneumococcal Unknown Completed [facility] 23-valent vaccine influenza virus Unknown Completed [facility] vaccine, inactivated Influenza Four-QIV Unknown Completed [facility] PF 3+YR [facility] Vital Signs Vital Name Observation Time Observation [...] BP Diastolic 2022-11-11 00:00:00 79 mm[Hg] [facility] Height 2022-11-11 00:00:00 72 [in_i] [facility] BMI (Body Mass 2022-11-11 00:00:00 22.7 kg/m2 [facility] Medical Index) BP Systolic 2022-11-11 00:00:00 140 mm[Hg] [facility] Body Weight 2022-11-11 00:00:00 2676 [oz_av] [facility] BP Diastolic 2022-11-02 00:00:00 91 mm[Hg] [facility] Height 2022-11-02 00:00:00 72 [in_i] [facility] BMI (Body Mass 2022-11-02 00:00:00 22.7 kg/m2 [facility] Medical Index) BP Systolic 2022-11-02 00:00:00 138 mm[Hg] [facility] Body Weight 2022-11-02 00:00:00 2676 [oz_av] [facility] BP Diastolic 2022-10-28 00:00:00 74 mm[Hg] [facility] Height 2022-10-28 00:00:00 72 [in_i] [facility] BMI (Body Mass 2022-10-28 00:00:00 21.7 kg/m2 [facility]) BP Systolic 2022-10-28 00:00:00 142 mm[Hg] [facility] Body Weight 2022-10-28 00:00:00 2560 [oz_av] [facility] BP Diastolic 2022-10-26 00:00:00 78 mm[Hg] [facility] Height 2022-10-26 00:00:00 72 [in_i] [facility] BMI (Body Mass 2022-10-26 00:00:00 23.1 kg/m2 [facility]) BP Systolic 2022-10-26 00:00:00 148 mm[Hg] [facility] Body Weight 2022-10-26 00:00:00 2720 [oz_av] [facility] BP Diastolic 2022-10-21 00:00:00 96 mm[Hg] [facility] Height 2022-10-21 00:00:00 72 [in_i] [facility] BMI (Body Mass 2022-10-21 00:00:00 23.1 kg/m2 [facility]) BP Systolic 2022-10-21 00:00:00 127 mm[Hg] [facility] Body Weight 2022-10-21 00:00:00 2720 [oz_av] [facility] BP Diastolic 2022-10-18 00:00:00 74 mm[Hg] [facility] Height 2022-10-18 00:00:00 72 [in_i] [facility] BMI (Body Mass 2022-10-18 00:00:00 23.5 kg/m2 [facility]) BP Systolic 2022-10-18 00:00:00 138 mm[Hg] [facility] Body Weight 2022-10-18 00:00:00 2774 [oz_av] [facility] BP Diastolic 2022-10-11 00:00:00 80 mm[Hg] [facility] Height 2022-10-11 00:00:00 72 [in_i] [facility] BMI (Body Mass 2022-10-11 00:00:00 23.1 kg/m2 [facility] Index) BP Systolic 2022-10-11 00:00:00 132 mm[Hg] [facility] Body Weight 2022-10-11 00:00:00 2726 [oz_av] [facility] BP Diastolic 2022-10-07 00:00:00 74 mm[Hg] [facility] Height 2022-10-07 00:00:00 72 [in_i] [facility] BMI (Body Mass 2022-10-07 00:00:00 23.1 kg/m2 [facility]) BP Systolic 2022-10-07 00:00:00 132 mm[Hg] [facility] Body Weight 2022-10-07 00:00:00 2726 [oz_av] [facility] BP Diastolic 2022-10-04 00:00:00 84 mm[Hg] [facility] Height 2022-10-04 00:00:00 72 [in_i] [facility] BMI (Body Mass 2022-10-04 00:00:00 23.1 kg/m2 [facility]) BP Systolic 2022-10-04 00:00:00 121 mm[Hg] [facility] Body Weight 2022-10-04 00:00:00 2726 [oz_av] [facility] BP Diastolic 2022-09-30 00:00:00 89 mm[Hg] [facility] Height 2022-09-30 00:00:00 72 [in_i] [facility] BMI (Body Mass 2022-09-30 00:00:00 23.1 kg/m2 [facility]) BP Systolic 2022-09-30 00:00:00 139 mm[Hg] [facility] Body Weight 2022-09-30 00:00:00 2720 [oz_av] [facility] BP Diastolic 2022-09-28 00:00:00 72 mm[Hg] [facility] Height 2022-09-28 00:00:00 72 [in_i] [facility] BMI (Body Mass 2022-09-28 00:00:00 24.2 kg/m2 [facility]) BP Systolic 2022-09-28 00:00:00 140 mm[Hg] [facility] Body Weight 2022-09-28 00:00:00 2852 [oz_av] [facility] BP Diastolic 2022-09-23 00:00:00 61 mm[Hg] [facility] Height 2022-09-23 00:00:00 72 [in_i] [facility] BMI (Body Mass 2022-09-23 00:00:00 24.2 kg/m2 [facility]) BP Systolic 2022-09-23 00:00:00 149 mm[Hg] [facility] Body Weight 2022-09-23 00:00:00 2852 [oz_av] [facility] BP Diastolic 2022-09-20 00:00:00 71 mm[Hg] [facility] Height 2022-09-20 00:00:00 72 [in_i] [facility] BMI (Body Mass 2022-09-20 00:00:00 24.2 kg/m2 [facility]) BP Systolic 2022-09-20 00:00:00 138 mm[Hg] [facility] Body Weight 2022-09-20 00:00:00 2852 [oz_av] [facility] BP Diastolic 2022-09-16 00:00:00 74 mm[Hg] [facility] Height 2022-09-16 00:00:00 72 [in_i] [facility] BMI (Body Mass 2022-09-16 00:00:00 24.2 kg/m2 [facility]) BP Systolic 2022-09-16 00:00:00 138 mm[Hg] [facility] Body Weight 2022-09-16 00:00:00 2854 [oz_av] [facility] BP Diastolic 2022-09-13 00:00:00 85 mm[Hg] [facility] BP Systolic 2022-09-13 00:00:00 147 mm[Hg] [facility] BP Diastolic 2022-09-10 00:00:00 76 mm[Hg] [facility] Height 2022-09-10 00:00:00 72 [in_i] Ashu alfaro BMI (Body Mass 2022-09-10 00:00:00 24.2 kg/m2 [facility] Index) BP Systolic 2022-09-10 00:00:00 138 mm[Hg] Ashu alfaro Body Weight 2022-09-10 00:00:00 2854 [oz_av] Ashu alfaro Heart rate 2022-09-05 23:47:00 74 /min [facility] [place] [facility] Respiratory rate 2022-09-05 23:47:00 18 /min Univ ersity of [facility] Oxygen saturation 2022-09-05 23:47:00 97 /min Uni versity of in Arterial blood [place] [facility] by Pulse oximetry Branch Systolic blood 2022-09-05 21:48:00 103 mm[Hg] Univer sity of pressure [facility] Branch Diastolic blood 2022-09-05 21:48:00 64 mm[Hg] Unive rsity of [facility] Body temperature 2022-09-05 21:47:00 36.39 Vivian [facility] [place] [facility] Body weight 2022-09-03 10:30:00 87.771 kg [facility] [place] [facility] BMI 2022-09-03 10:30:00 26.24 kg/m2 Universi ty [facility] Body height 2022-08-16 20:04:[address] [facility] Branch Systolic blood 2022-08-06 17:30:00 135 mm[Hg] Univer sity of [facility] Diastolic blood 2022-08-06 17:30:00 72 mm[Hg] Unive rsity of pressure [place] [facility] Heart rate 2022-08-06 17:30:00 79 /min [facility] [place] [facility] Respiratory rate 2022-08-06 17:30:00 15 /min [facility] ers[facility] [place] [facility] Oxygen saturation 2022-08-06 17:30:00 100 /min Uni versity of in Arterial blood [place] [facility] by Pulse oximetry Branch Body temperature 2022-08-06 15:15:00 36.[address] [facility] Body height 2022-08-06 15:15:00 182.9 cm [facility] [place] [facility] Body weight 2022-08-06 15:15:00 79.379 kg [facility] [place] [facility] BMI 2022-08-06 15:15:00 23.73 kg/m2 [facility] [place] [facility] Systolic blood 2022-07-20 22:00:00 136 mm[Hg] Univer sity of pressure [place] [facility] Diastolic blood 2022-07-20 22:00:00 66 mm[Hg] Unive rsity of pressure [facility] [place] [facility] Heart rate 2022-07-20 22:00:00 78 /min [facility] [place] [facility] Respiratory rate 2022-07-20 22:00:00 17 /min [facility] [place] [facility] Oxygen saturation 2022-07-20 22:00:00 97 /min Uni versity of in Arterial blood [place] [facility] by Pulse oximetry Branch Body temperature 2022-07-20 19:53:00 36.17 Vivian [facility] [place] [facility] Body weight 2022-07-20 19:53:00 79.379 kg [facility] [place] [facility] BMI 2022-07-20 19:53:00 23.73 kg/m2 [facility] [place] [facility] Systolic blood 2022-07-16 16:00:00 149 mm[Hg] Univer sity of pressure [place] [facility] Diastolic blood 2022-07-16 16:00:00 65 mm[Hg] Unive rsity of pressure [place] [facility] Heart rate 2022-07-16 16:00:00 85 /min [facility] [place] [facility] Respiratory rate 2022-07-16 16:00:00 14 /min [facility] [place] [facility] Oxygen saturation 2022-07-16 16:00:00 96 /min Uni versity of in Arterial blood [place] [facility] by Pulse oximetry [facility] Body temperature 2022-07-16 14:01:00 36.56 Vivian [facility] [place] [facility] Body weight 2022-07-16 14:01:00 79.379 kg [facility] [place] [facility] BMI 2022-07-16 14:01:00 23.73 kg/m2 [facility] [place] [facility] Systolic blood 2022-07-09 02:00:00 137 mm[Hg] Univer sity of pressure [place] [facility] Diastolic blood 2022-07-09 02:00:00 69 mm[Hg] Unive rsity of pressure [place] [facility] Heart rate 2022-07-09 02:00:00 82 /min [facility] [place] [facility] Respiratory rate 2022-07-09 02:00:00 17 /min [facility] [place] [facility] Oxygen saturation 2022-07-09 02:00:00 100 /min Uni versity of in Arterial blood [place] [facility] by Pulse oximetry [facility] Body temperature 2022-07-08 17:54:00 36 Vivian [facility] [place] [facility] Body height 2022-07-08 17:54:00 182.9 cm [facility] [place] [facility] Body weight 2022-07-08 17:54:00 84.369 kg [facility] [place] [facility] BMI 2022-07-08 17:54:00 25.23 kg/m2 [facility] [place] [facility] Systolic blood 2022-05-24 16:28:00 118 mm[Hg] Univer sity of pressure [place] [facility] Diastolic blood 2022-05-24 16:28:00 65 mm[Hg] Unive rsity of pressure [place] [facility] Heart rate 2022-05-24 16:28:00 83 /min [facility] [place] [facility] Respiratory rate 2022-05-24 16:28:00 22 /min [facility] [place] [facility] Body height 2022-05-24 16:28:00 182.9 cm [facility] [place] [facility] Body weight 2022-05-24 16:28:00 84.369 kg [facility] [place] [facility] BMI 2022-05-24 16:28:00 25.23 kg/m2 [facility] [place] [facility] Oxygen saturation 2022-05-24 16:28:00 100 /min 6 liters O2 Uni versity of in Arterial blood [place] [facility] by Pulse oximetry [facility] Systolic blood 2022-04-27 17:02:00 125 mm[Hg] Univer sity of pressure [place] [facility] Diastolic blood 2022-04-27 17:02:00 84 mm[Hg] Unive rsity of pressure [place] [facility] Heart rate 2022-04-27 17:02:00 78 /min [facility] [place] [facility] Body temperature 2022-04-27 17:02:00 35.83 Vivian [facility] [place] [facility] Respiratory rate 2022-04-27 17:02:00 18 /min [facility] [place] [facility] Oxygen saturation 2022-04-27 17:02:00 98 /min Uni versity of in Arterial blood [place] [facility] by Pulse oximetry [facility] Body weight 2022-04-27 08:53:00 83.462 kg [facility] [place] [facility] BMI 2022-04-27 08:53:00 24.95 kg/m2 [facility] ty of [facility] Body height 2022-04-22 03:44:00 182.9 cm Universi ty of [facility] Systolic blood 2022-04-26 14:28:00 137 mm[Hg] Univer sity of pressure [place] [facility] Diastolic blood 2022-04-26 14:28:00 69 mm[Hg] Unive rsity of [facility] Heart rate 2022-04-26 14:28:00 77 /min [facility]i ty of [facility] Respiratory rate 2022-04-26 14:28:00 11 /min Univ ersity of [facility] Oxygen saturation 2022-04-26 14:28:00 98 /min Uni versity of in Arterial blood [facility] by Pulse oximetry Branch Body temperature 2022-04-26 14:25:00 36.61 Vivian [facility] ers[facility] of [facility] Body weight 2022-04-26 09:03:00 82.963 kg [facility]i [facility] BMI 2022-04-26 09:03:00 24.95 kg/m2 [facility] Body height 2022-04-22 03:44:00 182.9 cm [facility] [place] [facility] Systolic blood 2021-11-22 21:37:00 142 mm[Hg] Univer sity of pressure [place] [facility] Diastolic blood 2021-11-22 21:37:00 84 mm[Hg] Unive rsity of pressure [facility] Heart rate 2021-11-22 21:37:00 77 /min [facility]i [facility] Body temperature 2021-11-22 20:44:00 36.17 Vivian [facility] Body height 2021-11-22 20:44:00 182.9 cm [facility] [place] [facility] Body weight 2021-11-22 20:44:00 102.513 kg [facility] [place] [facility] BMI 2021-11-22 20:44:00 30.65 kg/m2 [facility] Oxygen saturation 2021-11-22 20:44:00 97 /min Uni versity of in Arterial blood [facility] by Pulse oximetry Branch Systolic blood 2022-12-08 12:30:00 121 mm[Hg] [facility] Diastolic blood 2022-12-08 12:30:00 56 mm[Hg] [facility] Heart rate 2022-12-08 12:30:00 77 /min [facility] Body temperature 2022-12-08 12:30:00 36.33 Vivian [facility] Respiratory rate 2022-12-08 12:30:00 20 /min [facility] Oxygen saturation 2022-12-08 12:30:00 96 /min [facility] in Arterial blood Medical nter by Pulse oximetry Body weight 2022-12-08 07:30:00 69.003 kg [facility] BMI 2022-12-08 07:30:00 20.63 kg/m2 [facility] Oxygen saturation 2022-12-06 09:30:00 95 /min [facility] in Arterial blood Medical nter by Pulse oximetry Heart rate 2022-12-06 09:29:00 84 /min [facility] Respiratory rate 2022-12-06 09:29:00 20 /min [facility] Systolic blood 2022-12-06 08:00:00 157 mm[Hg] [facility] Diastolic blood 2022-12-06 08:00:00 72 mm[Hg] [facility] Body temperature 2022-12-06 08:00:00 36.72 Vivian [facility] Oxygen saturation 2022-12-05 12:28:00 93 /min [facility] in Arterial blood Medical nter by Pulse oximetry Systolic blood 2022-12-05 12:00:00 124 mm[Hg] [facility] Diastolic blood 2022-12-05 12:00:00 59 mm[Hg] [facility] Heart rate 2022-12-05 12:00:00 86 /min [facility] Body temperature 2022-12-05 12:00:00 36.5 Vivian [facility] Respiratory rate 2022-12-05 12:00:00 18 /min [facility] Body weight 2022-12-04 05:50:00 69.003 kg [facility] BMI 2022-12-04 05:50:00 20.63 kg/m2 [facility] Systolic blood 2022-12-01 16:05:00 111 mm[Hg] [facility] Diastolic blood 2022-12-01 16:05:00 57 mm[Hg] [facility] Heart rate 2022-12-01 16:05:00 92 /min [facility] Body temperature 2022-12-01 16:05:00 37.72 Vivian [facility] Respiratory rate 2022-12-01 16:05:00 30 /min [facility] Oxygen saturation 2022-12-01 16:05:00 94 /min [facility] blood Medical nter by Pulse oximetry Heart rate 2022-11-30 08:35:00 89 /min [facility] Respiratory rate 2022-11-30 08:35:00 30 /min [facility] Oxygen saturation 2022-11-30 08:35:00 95 /min [facility] Medical nter by Pulse oximetry Body temperature 2022-11-30 08:17:00 38.61 Vivian [facility] Systolic blood 2022-11-30 08:03:00 105 mm[Hg] [facility] Diastolic blood 2022-11-30 08:03:00 58 mm[Hg] [facility] Body height 2022-11-30 05:19:00 182.9 cm [facility] Body weight 2022-11-30 05:19:00 68.8 kg [facility] BMI 2022-11-30 05:19:00 20.57 kg/m2 [facility] Heart Rate 2022-03-15 15:17:05 [facility]:17:05 [facility] Systolic (mm Hg) 2022-03-15 15:17:00 [facility] Diastolic (mm Hg) 2022-03-15 15:17:00 [facility] Heart Rate 2022-03-15 15:17:00 [facility] Temperature Oral 2022-03-15 15:16:54 98.4 F Is[facility]ro [facility] (F) Heart Rate 2022-03-15 11:58:35 [facility] Respitory Rate 2022-03-15 11:58:35 [facility] Temperature Oral 2022-03-15 11:58:28 99 F Is[facility]ro [facility] (F) Systolic (mm Hg) 2022-03-15 11:57:51 [facility] Diastolic (mm Hg) 2022-03-15 11:57:51 [facility] Systolic (mm Hg) 2022-03-15 09:06:16 [facility] Diastolic (mm Hg) 2022-03-15 09:06:16 [facility] Temperature Oral 2022-03-15 05:33:34 98.8 F [facility]ro [facility] (F) Respitory Rate 2022-03-14 11:17:57 [facility] Heart Rate 2022-03-07 05:14:06 [facility] Systolic (mm Hg) 2022-03-07 05:13:51 [facility]ro [facility] Diastolic (mm Hg) 2022-03-07 05:13:51 [facility] Heart Rate 2022-03-07 05:13:51 [facility] Heart Rate 2022-03-07 00:02:00 [facility] Systolic (mm Hg) 2022-03-07 00:01:40 [facility]ro [facility] Diastolic (mm Hg) 2022-03-07 00:01:40 Mem orial Arnold Temperature Oral 2022-03-06 20:35:58 98.3 F Isidro rial Buck (F) Systolic (mm Hg) 2022-03-06 20:35:44 Isidro rial Arnold Diastolic (mm Hg) 2022-03-06 20:35:44 Mem orial Buck Temperature Oral 2022-03-06 16:56:47 98.3 F Isidro rial Arnold (F) Temperature Oral 2022-03-06 12:44:46 98.6 F Isidro rial Arnold (F) Respitory Rate 2022-03-05 21:13:15 Memori al Buck Respitory Rate 2022-03-05 18:25:00 Memori al Arnold Respitory Rate 2022-03-05 16:21:24 Memori al Buck Height 2022-03-03 22:33:00 182.88 cm [facility] Weight 2022-03-03 22:33:00 [facility] Height 2022-03-03 05:47:00 182.88 cm [facility] Weight 2022-03-03 05:47:00 [facility] BMI Calculated 2022-03-03 05:47:00 Memori al Buck Height 2022-03-03 00:04:00 182.88 cm [facility] BMI Calculated 2022-03-03 00:04:00 [facility] Weight 2022-03-03 00:04:00 [facility] Respitory Rate 2022-01-25 01:00:00 [facility] Arnold Systolic (mm Hg) 2022-01-25 01:00:00 Isidro rial Buck Diastolic (mm Hg) 2022-01-25 01:00:00 Mem o[facility] Buck Height 2022-01-25 00:43:00 182.88 cm [facility] Respitory Rate 2022-01-25 00:00:00 [facility] Arnold Systolic (mm Hg) 2022-01-25 00:00:00 Isidro rial Buck Diastolic (mm Hg) 2022-01-25 00:00:00 Mem o[facility] Buck Respitory Rate 2022-01-24 23:45:00 [facility]ori al Buck Systolic (mm Hg) 2022-01-24 23:45:00 Isidro rial Buck Diastolic (mm Hg) 2022-01-24 23:45:00 [facility] o[facility] Arnold Height 2022-01-24 20:33:00 182.88 cm [facility] Height 2022-01-24 18:00:00 182.88 cm [facility] Temperature Oral 2022-01-17 04:59:00 98.7 F Isidro rial Arnold (F) Temperature Oral 2022-01-12 00:57:00 99.6 F Isidro rial Arnold (F) Weight 2022-01-11 07:38:00 [facility] Weight 2022-01-05 12:08:00 [facility] Respitory Rate 2022-01-03 07:00:00 [facility] Buck Systolic (mm Hg) 2022-01-03 07:00:00 Isidro rial Buck Diastolic (mm Hg) 2022-01-03 07:00:00 Mem o[facility] Buck Respitory Rate 2022-01-03 06:00:00 [facility] Arnold Systolic (mm Hg) 2022-01-03 06:00:00 Isidro rial Arnold Diastolic (mm Hg) 2022-01-03 06:00:00 Mem orial Buck Respitory Rate 2022-01-03 05:00:00 [facility]ori al Buck Systolic (mm Hg) 2022-01-03 05:00:00 Isidro rial Buck Diastolic (mm Hg) 2022-01-03 05:00:00 [facility] o[facility] Arnold Height 2022-01-03 04:35:00 182.88 cm [facility] Height 2022-01-03 01:04:00 182.88 cm [facility] Height 2022-01-02 22:25:00 182.88 cm [facility] Weight 2022-01-02 22:25:00 [facility] BMI Calculated 2022-01-02 22:25:00 [facility] Temperature Oral 2022-01-02 01:24:00 98.4 F Isidro rial Arnold (F) Temperature Oral 2022-01-01 00:53:00 97.5 F Isidro rial Arnold (F) Temperature Oral 2021-12-31 21:00:00 98.4 F Isidro rial Arnold (F) Weight 2021-12-30 19:48:00 [facility] BMI Calculated 2021-12-30 19:48:00 [facility] Buck BMI Calculated 2021-12-30 15:24:00 [facility] Weight 2021-12-30 15:24:00 [facility] Heart Rate 2021-12-30 14:33:00 [facility] Heart Rate 2015-07-08 18:00:00 [facility] Respitory Rate 2015-07-08 18:00:00 [facility] Buck Systolic (mm Hg) 2015-07-08 18:00:00 Isidro rial Buck Diastolic (mm Hg) 2015-07-08 18:00:00 [facility] o[facility] Arnold Temperature Oral 2015-07-08 18:00:00 97.5 F Isidro rial Buck (F) Respitory Rate 2015-07-08 15:04:00 [facility] Respitory Rate 2015-07-08 14:00:00 [facility]ori al Buck Systolic (mm Hg) 2015-07-08 14:00:00 Isidro rial Arnold Diastolic (mm Hg) 2015-07-08 14:00:00 Mem orial Buck Heart Rate 2015-07-08 14:00:00 [facility] Temperature Oral 2015-07-08 14:00:00 97.9 F Isidro rial Buck (F) Heart Rate 2015-07-08 11:14:00 [facility] Temperature Oral 2015-07-08 11:14:00 97.9 F Isidro rial Buck (F) Systolic (mm Hg) 2015-07-08 11:14:00 Isidro rial Buck Diastolic (mm Hg) 2015-07-08 11:14:00 [facility] o[facility] Arnold BMI Calculated 2015-07-08 00:40:00 [facility] Buck Weight 2015-07-08 00:40:00 [facility] Height 2015-07-08 00:40:00 182.88 cm [facility] BMI Calculated 2015-07-07 13:52:00 [facility] Buck Weight 2015-07-07 13:52:00 [facility] Height 2015-07-07 13:52:00 165.1 cm [facility] Systolic (mm Hg) 2014-12-08 21:13:00 Isidro rial Buck Diastolic (mm Hg) 2014-12-08 21:13:00 [facility] o[facility] Arnold Respitory Rate 2014-12-08 21:13:00 [facility] Heart Rate 2014-12-08 21:13:00 [facility] Temperature Oral 2014-12-08 21:13:00 98.7 F Isidro rial Buck (F) Heart Rate 2014-12-08 17:13:00 [facility] Temperature Oral 2014-12-08 17:13:00 98.5 F Isidro rial Buck (F) Respitory Rate 2014-12-08 17:13:00 [facility] Systolic (mm Hg) 2014-12-08 17:13:00 Isidro rial Arnold Diastolic (mm Hg) 2014-12-08 17:13:00 Mem o[facility] Buck Heart Rate 2014-12-08 13:00:00 [facility] Temperature Oral 2014-12-08 13:00:00 97.9 F Isidro rial Arnold (F) Respitory Rate 2014-12-08 13:00:00 [facility] Buck Systolic (mm Hg) 2014-12-08 13:00:00 Isidro rial Buck Diastolic (mm Hg) 2014-12-08 13:00:00 [facility] o[facility] Buck Respitory Rate 2014-12-06 14:43:00 [facility] Arnold Systolic (mm Hg) 2014-12-06 14:43:00 Isidro rial Arnold Diastolic (mm Hg) 2014-12-06 14:43:00 [facility] o[facility] Arnold Heart Rate 2014-12-06 14:43:00 [facility] Height 2014-12-05 19:54:00 182.88 cm [facility] BMI Calculated 2014-12-05 19:54:00 [facility] Buck Weight 2014-12-05 19:54:00 [facility] Respitory Rate 2014-12-05 17:50:00 [facility] Systolic (mm Hg) 2014-12-05 17:50:00 Isidro rial Arnold Diastolic (mm Hg) 2014-12-05 17:50:00 [facility] o[facility] Buck Weight 2014-12-04 15:48:00 [facility] BMI Calculated 2014-12-04 15:48:00 [facility] Height 2014-12-04 15:48:00 182.88 cm [facility] Respitory Rate 2014-11-05 20:30:00 [facility] Heart Rate 2014-11-05 20:30:00 [facility] Systolic (mm Hg) 2014-11-05 20:30:00 Isidro rial Arnold Diastolic (mm Hg) 2014-11-05 20:30:00 Mem o[facility] Buck Systolic (mm Hg) 2014-11-05 20:15:00 Isidro rial Buck Diastolic (mm Hg) 2014-11-05 20:15:00 [facility] o[facility] Buck Respitory Rate 2014-11-05 20:15:00 [facility] Respitory Rate 2014-11-05 20:00:00 [facility] Buck Systolic (mm Hg) 2014-11-05 20:00:00 Isidro rial Buck Diastolic (mm Hg) 2014-11-05 20:00:00 [facility] Heart Rate 2014-11-05 14:51:00 [facility] Temperature Oral 2014-11-05 14:51:00 97.9 F Isidro rial Arnold (F) Systolic (mm Hg) 2014-10-31 21:00:00 Isidro rial Arnold Diastolic (mm Hg) 2014-10-31 21:00:00 [facility] o[facility] Arnold Respitory Rate 2014-10-31 21:00:00 [facility] Heart Rate 2014-10-31 21:00:00 [facility] Temperature Oral 2014-10-31 21:00:00 98.1 F Isidro rial Arnold (F) Height 2014-10-31 20:53:00 182.88 cm [facility] BMI Calculated 2014-10-31 20:53:00 [facility] Weight 2014-10-31 20:53:00 [facility] Respitory Rate 2014-10-31 17:00:00 [facility] Buck Systolic (mm Hg) 2014-10-31 17:00:00 Isidro rial Buck Diastolic (mm Hg) 2014-10-31 17:00:00 [facility] o[facility] Arnold Heart Rate 2014-10-31 17:00:00 [facility] Temperature Oral 2014-10-31 17:00:00 97.9 F Isidro rial Buck (F) Temperature Oral 2014-10-31 12:00:00 98.3 F Isidro rial Buck (F) Heart Rate 2014-10-31 12:00:00 [facility] Systolic (mm Hg) 2014-10-31 12:00:00 Isidro rial Arnold Diastolic (mm Hg) 2014-10-31 12:00:00 [facility] o[facility] Buck Respitory Rate 2014-10-31 12:00:00 [facility] Weight 2014-10-24 05:44:00 [facility] BMI Calculated 2014-10-24 05:44:00 [facility] Height 2014-10-24 05:44:00 187.96 cm [facility] Systolic (mm Hg) 2014-09-11 18:00:00 Isidro rial Arnold Respitory Rate 2014-09-11 18:00:00 [facility] Buck Heart Rate 2014-09-11 18:00:00 [facility] Temperature Oral 2014-09-11 18:00:00 98.3 F Isidro rial Arnold (F) Diastolic (mm Hg) 2014-09-11 18:00:00 Mem o[facility] Arnold Diastolic (mm Hg) 2014-09-11 13:00:00 [facility] o[facility] Arnold Heart Rate 2014-09-11 13:00:00 [facility] Temperature Oral 2014-09-11 13:00:00 98.6 F Isidro rial Buck (F) Systolic (mm Hg) 2014-09-11 13:00:00 Isidro rial Arnold Respitory Rate 2014-09-11 13:00:00 [facility] Systolic (mm Hg) 2014-09-11 11:50:00 Isidro rial Buck Diastolic (mm Hg) 2014-09-11 11:50:00 [facility] o[facility] Arnold Respitory Rate 2014-09-11 11:50:00 [facility] Temperature Oral 2014-09-11 11:50:00 98.2 F Isidro rial Arnold (F) Heart Rate 2014-09-11 11:50:00 [facility] Systolic (mm Hg) 2014-09-10 01:45:00 Isidro rial Arnold Diastolic (mm Hg) 2014-09-10 01:45:00 Mem o[facility] Buck Respitory Rate 2014-09-10 01:45:00 [facility] Buck Systolic (mm Hg) 2014-09-10 01:37:00 Isidro rial Buck Respitory Rate 2014-09-10 01:37:00 [facility] Buck Diastolic (mm Hg) 2014-09-10 01:37:00 [facility] o[facility] Buck Height 2014-09-09 02:53:00 182.88 cm [facility] BMI Calculated 2014-09-09 02:53:00 [facility] Weight 2014-09-09 02:53:00 [facility] Heart Rate 2014-09-09 01:28:00 [facility] Temperature Oral 2014-09-09 01:28:00 98.4 F Isidro rial Arnold (F) Respitory Rate 2014-09-09 01:28:00 [facility] BMI Calculated 2014-09-09 01:28:00 [facility] Buck Height 2014-09-09 01:28:00 182.88 cm [facility] Weight 2014-09-09 01:28:00 [facility] Systolic (mm Hg) 2014-09-09 01:28:00 Isidro rial Arnold Diastolic (mm Hg) 2014-09-09 01:28:00 [facility] o[facility] Buck Diastolic (mm Hg) 2014-09-03 16:30:00 [facility] o[facility] Buck Systolic (mm Hg) 2014-09-03 16:30:00 Isidro rial Buck Respitory Rate 2014-09-03 16:30:00 [facility] Heart Rate 2014-09-03 16:30:00 [facility] Systolic (mm Hg) 2014-09-03 15:30:00 Isidro rial Arnold Respitory Rate 2014-09-03 15:30:00 [facility] Buck Heart Rate 2014-09-03 15:30:00 [facility] Diastolic (mm Hg) 2014-09-03 15:30:00 [facility] o[facility] Arnold Diastolic (mm Hg) 2014-09-03 15:00:00 [facility] o[facility] Arnold Systolic (mm Hg) 2014-09-03 15:00:00 Isidro rial Buck Respitory Rate 2014-09-03 15:00:00 [facility] Temperature Oral 2014-09-03 12:15:00 97.5 F Isidro rial Arnold (F) Heart Rate 2014-09-03 12:15:00 [facility] BMI Calculated 2014-09-02 17:33:00 [facility] Buck Weight 2014-09-02 17:33:00 [facility] Height 2014-09-02 17:33:00 182.88 cm [facility] Respitory Rate 2012-12-21 14:28:00 [facility] Arnold Systolic (mm Hg) 2012-12-21 13:13:00 Isidro rial Arnold Heart Rate 2012-12-21 13:13:00 [facility] Respitory Rate 2012-12-21 13:13:00 [facility] Arnold Diastolic (mm Hg) 2012-12-21 13:13:00 [facility] Arnold Temperature Oral 2012-12-21 13:13:00 98.0 F Isidro Esquedaann (F) Respitory Rate 2012-12-21 09:32:00 [facility] Heart Rate 2012-12-21 09:32:00 [facility] Diastolic (mm Hg) 2012-12-21 09:32:00 Mem orial Buck Systolic (mm Hg) 2012-12-21 09:32:00 Isidro rial Buck Temperature Oral 2012-12-21 09:32:00 98.7 F Isidro elisal Buck (F) Systolic (mm Hg) 2012-12-21 09:31:00 Isidro rial Arnold Diastolic (mm Hg) 2012-12-21 09:31:00 Mem orial Buck Heart Rate 2012-12-21 09:31:00 [facility] Temperature Oral 2012-12-21 09:31:00 98.2 F Isidro Esquedaann (F) Weight 2012-12-14 22:13:00 [facility] Height 2012-12-14 22:13:00 182.88 cm [facility] Weight 2012-12-14 22:00:00 [facility] Height 2012-12-14 22:00:00 182.88 cm [facility] Procedures Procedure Date / Time Performing Clinician Source Performed POCT-GLUCOSE METER 2022-12-08 12:01:00 HollyDarrel [facility] POCT-GLUCOSE METER 2022-12-08 06:57:00 Holly [facility] CBC W/PLT COUNT & AUTO 2022-12-08 05:29:00 Bello Pom[facility] BASIC METABOLIC PANEL 2022-12-08 05:29:00 Olive [facility] MAGNESIUM 2022-12-08 05:29:00 Olive [facility] PHOSPHORUS 2022-12-08 05:29:00 Olive [facility] CBC W/PLT COUNT & AUTO 2022-12-08 05:29:00 Bello [place] [facility] POCT-GLUCOSE METER 2022-12-08 01:05:00 Darrel Leyva [facility] POCT-GLUCOSE METER 2022-12-07 18:44:00 Autumn [facility] POCT-GLUCOSE METER 2022-12-07 13:39:00 Shieh [facility] POCT-GLUCOSE METER 2022-12-07 05:53:00 Brendon [facility] CBC W/PLT COUNT & AUTO 2022-12-07 04:12:00 [place] [facility] BASIC METABOLIC PANEL 2022-12-07 04:12[facility] 2022-12-07 04:12[facility]-07 [facility]:12[facility]T [facility] & AUTO 2022-12-07 04:12:00 [facility] POCT-GLUCOSE METER 2022-12-07 01:20:00 Brendon [facility] POCT-GLUCOSE METER 2022-12-06 15:40:00 [facility] POCT-GLUCOSE METER 2022-12-06 11:43:00 Olivas [facility] POCT-GLUCOSE METER 2022-12-06 06:15:00 [facility] CBC W/PLT COUNT & AUTO 2022-12-06 03:30:00 [place] Bello [facility] BASIC METABOLIC PANEL 2022-12-06 03:30:00 [facility] 2022-12-06 03:30:00 Schaefer, [facility] PHOSPHORUS 2022-12-06 03:30:00 [facility] & AUTO 2022-12-06 03:30:00 [place] Bello [facility] DIFFERENTIAL [facility] POCT-GLUCOSE METER 2022-12-06 00:05:00 Brendon [facility] POCT-GLUCOSE METER 2022-12-05 15:32:00 Olivas [facility] POCT-GLUCOSE METER 2022-12-05 11:33:00 Brendon [facility] POCT-GLUCOSE METER 2022-12-05 06:48:00 Brendon [facility] CBC W/PLT COUNT & AUTO 2022-12-05 05:17:00 Leobardo Pompaegan [facility] DIFFERENTIAL [facility] BASIC METABOLIC PANEL 2022-12-05 05:17:00 Olive [facility] MAGNESIUM 2022-12-05 05:17:00 Olive [facility] PHOSPHORUS 2022-12-05 05:17:00 Olive [facility] VANCOMYCIN LEVEL, TROUGH 2022-12-05 05:17:00 Deborah Jain [facility] CBC W/PLT COUNT & AUTO 2022-12-05 05:17:00 Peña Bello [facility] DIFFERENTIAL [facility] (MANUAL DIFFERENTIAL) 2022-12-05 05:17:00 [place] Belol [facility] POCT-GLUCOSE METER 2022-12-04 23:41:00 Brendon [facility] POCT-GLUCOSE METER 2022-12-04 18:06:00 Olivas [facility] POCT-GLUCOSE METER 2022-12-04 13:00:00 Olivas [facility] POCT-GLUCOSE METER 2022-12-04 06:28:00 Olivas [facility] CBC W/PLT COUNT & AUTO 2022-12-04 05:04:00 Leobardo Pompaegan [facility] DIFFERENTIAL [facility] BASIC METABOLIC PANEL 2022-12-04 05:04:00 Schaefer, [facility] MAGNESIUM 2022-12-04 05:04:00 Schaefer, [facility] PHOSPHORUS 2022-12-04 05:04:00 Schaefer [facility] CBC W/PLT COUNT & AUTO 2022-12-04 05:04:00 Bello Pompa [facility] DIFFERENTIAL [facility] POCT-GLUCOSE METER 2022-12-04 00:03:00 Brendon [facility] POCT-GLUCOSE METER 2022-12-03 18:23:00 Brendon [facility] POCT-GLUCOSE METER 2022-12-03 11:34:00 Brendon [facility] POCT-GLUCOSE METER 2022-12-03 05:51:00 Brendon [facility] CBC W/PLT COUNT & AUTO 2022-12-03 03:43:00 [facility] BASIC METABOLIC PANEL 2022-12-03 03:43:00 Olive [facility] MAGNESIUM 2022-12-03 03:43:00 Olive [facility] PHOSPHORUS 2022-12-03 03:43:00 Olive [facility] VANCOMYCIN LEVEL, TROUGH 2022-12-03 03:43:00 Lottie Lima [facility] CBC W/PLT COUNT & AUTO 2022-12-03 03:43:00 Bello Pompa [facility] DIFFERENTIAL [facility] (MANUAL DIFFERENTIAL) 2022-12-03 03:43:00 [facility] 2022-12-02 23:13:00 Brendon [facility] POCT-GLUCOSE METER 2022-12-02 20:25:00 Brendon [facility] POCT-GLUCOSE METER 2022-12-02 18:40:00 Brendon [facility] [place] MODIFIED BARIUM 2022-12-02 14:30:00 Olive [facility] POCT-GLUCOSE METER 2022-12-02 11:54:00 Dilcia Olivas [facility] POCT-GLUCOSE METER 2022-12-02 08:42:00 Lafleur, [facility] POCT-GLUCOSE METER 2022-12-02 06:34:00 Ciarra [facility] BLOOD CULTURE 2022-12-02 04:06:00 Schaefer [facility] CBC W/PLT COUNT & AUTO 2022-12-02 04:04:00 Peña [facility] DIFFERENTIAL [facility] BLOOD GAS, VENOUS 2022-12-02 04:04:00 [facility] BASIC METABOLIC PANEL 2022-12-02 04:04:00 Olive [facility] MAGNESIUM 2022-12-02 04:04:00 Olive [facility] PHOSPHORUS 2022-12-02 04:04:00 Schaefer [facility] CBC W/PLT COUNT & AUTO 2022-12-02 04:04:00 [facility] (MANUAL DIFFERENTIAL) 2022-12-02 04:04:00 [place] [facility] POCT-GLUCOSE METER 2022-12-01 23:51:00 Ciarra [facility] POCT-GLUCOSE METER 2022-12-01 20:50:00 Ciarra [facility] POCT-GLUCOSE METER 2022-12-01 19:34:00 Lafleur, [facility] POCT-GLUCOSE METER 2022-12-01 17:32:00 Ciarra [facility] XR CHEST 1 VIEW PORTABLE 2022-12-01 11:20:00 Schaefer [facility] POCT-GLUCOSE METER 2022-12-01 11:06:00 Ciarra [facility] BASIC METABOLIC PANEL 2022-12-01 07:41:00 Lagria, Ayesa [facility] LACTIC ACID, VENOUS 2022-12-01 07:41:00 Markell Landrysunithatoby [facility] POCT-GLUCOSE METER 2022-12-01 05:49:00 Ciarra [facility] HEMOGLOBIN A1C 2022-12-01 03:34:00 Frantz Pilar [facility] VANCOMYCIN LEVEL, TROUGH 2022-12-01 03:34:00 Lottie Lima [facility] BASIC METABOLIC PANEL 2022-12-01 03:34:00 [facility] CBC W/PLT COUNT & AUTO 2022-12-01 03:34:00 Peña [facility] DIFFERENTIAL [facility] BLOOD GAS, VENOUS 2022-12-01 03:34:00 [facility] PHOSPHORUS 2022-12-01 03:34:00 Markell Landrysunithatoby [facility] MAGNESIUM 2022-12-01 03:34:00 Frantz [facility] LACTIC ACID, VENOUS 2022-12-01 03:34:00 Frantz sunithatoby [facility] CBC W/PLT COUNT & AUTO 2022-12-01 03:34:00 Peña [facility] DIFFERENTIAL [facility] (MANUAL DIFFERENTIAL) 2022-12-01 03:34:00 [place] [facility] POCT-GLUCOSE METER 2022-12-01 02:05:00 [facility] PO[facility]SE METER 2022-12-01 00:33:00 Ciarra [facility] BASIC METABOLIC PANEL 2022-11-30 23:40:00 Pilar Landry [facility] MAGNESIUM 2022-11-30 23:40:00 Pilar Landry [facility] PHOSPHORUS 2022-11-30 23:40:00 Frantz yordy [facility] POCT-GLUCOSE METER 2022-11-30 22:59:00 Lafleur, [facility] BASIC METABOLIC PANEL 2022-11-30 19:43:00 [place] [facility] BLOOD GAS, VENOUS 2022-11-30 19:43:00 [facility] LACTIC ACID, VENOUS 2022-11-30 19:43:00 [facility] POCT-GLUCOSE METER 2022-11-30 18:04:00 Lafleur, [facility] POCT-GLUCOSE METER 2022-11-30 17:01:00 Lafleur, [facility] POCT-GLUCOSE METER 2022-11-30 11:27:00 Lafleur, [facility] POCT-GLUCOSE METER 2022-11-30 10:29:00 Lafleur, [facility] SPUTUM CULTURE + GRAM 2022-11-30 09:02:00 [facility] BLOOD GAS, VENOUS 2022-11-30 08:47:00 [facility] LACTIC ACID, VENOUS 2022-11-30 08:47:00 [facility] TSH/FREE T4 IF INDICATED 2022-11-30 08:47:00 [facility] COMPREHENSIVE METABOLIC 2022-11-30 08:47:[address] [place] [facility] 2D ECHO W/ DOPPLER 2022-11-30 08:46:38 [facility] (CW/PW/COLOR) [facility] 2D ECHO W/ DOPPLER 2022-11-30 08:46:38 [facility] (CW/PW/COLOR) [facility] 2D ECHO W/ DOPPLER 2022-11-30 08:08:44 [facility] (CW/PW/COLOR) [facility] LACTIC ACID, VENOUS 2022-11-30 07:40:00 Mateusz Lainez [facility] ABORH, MANUAL 2022-11-30 07:40:[address] [facility] MRSA SCREEN 2022-11-30 06:28:00 Bello Pompa [facility] XR ABDOMEN/KUB 1 VIEW 2022-11-30 06:03:00 [place] [facility] PORTABLE [facility] URINALYSIS MICROSCOPIC 2022-11-30 05:41:00 [facility] URINALYSIS WITH 2022-11-30 05:41:00 [facility] MICROSCOPIC IF INDICATED [facility] URINALYSIS MICROSCOPIC 2022-11-30 05:41:00 [facility] URINE CULTURE 2022-11-30 05:41:00 Yassine Lafleur [facility] BLOOD GAS, ARTERIAL 2022-11-30 05:00:00 Oj [facility] RAPID RSV ANTIGEN 2022-11-30 04:52:00 [facility] RAPID INFLUENZA A&B 2022-11-30 04:52:00 [facility] SARS-COV2/RT-PCR ([facility] & 2022-11-30 04:52:00 OjBa olivera [facility] REF LABS) [facility] BLOOD CULTURE 2022-11-30 04:29:00 Oj [facility] ECG 12-LEAD 2022-11-30 04:28:26 [facility] ECG 12-LEAD 2022-11-30 04:28:26 [facility] BLOOD CULTURE 2022-11-30 04:27:00 [facility] TYPE AND SCREEN, 2022-11-30 04:19:00 [facility] AUTOMATED [facility] XR CHEST 1 VIEW PORTABLE 2022-11-30 04:10:00 Ba Mcwilliams [facility] / BEDSIDE [facility] CBC W/PLT COUNT & AUTO 2022-11-30 04:10:00 Oj [facility] DIFFERENTIAL [facility] COMPREHENSIVE METABOLIC 2022-11-30 04:10:00 Ba Mcwilliams [facility]EL [facility] 2022-11-30 04:10:00 Oj [facility] PHOSPHORUS 2022-11-30 04:10:00 [place] [facility] CALCIUM, IONIZED 2022-11-30 04:10:00 [place] [facility] LACTIC ACID, VENOUS 2022-11-30 04:10:00 [place] [facility] PROCALCITONIN 2022-11-30 04:10:00 [place] [facility] B-TYPE NATRIURETIC FACTOR 2022-11-30 04:10:00 [facility] (BNP) [facility] CREATINE KINASE (CK) 2022-11-30 04:10:[address] [place] [facility] D-DIMER 2022-11-30 04:10:00 [place] [facility] PT/APTT 2022-11-30 04:10:00 [place] [facility] CBC W/PLT COUNT & AUTO 2022-11-30 04:10:00 [place] [facility] DIFFERENTIAL [facility] (MANUAL DIFFERENTIAL) 2022-11-30 04:10:00 [facility] CORTISOL 2022-11-30 04:10:00 Oj [facility] POCT-GLUCOSE METER 2022-11-30 04:06:00 Mateusz Lainez [facility] EKG-SCANNED 2022-11-30 00:00:00 Provider, Default [facility] POCT GLUCOSE (AUTOMATED) 2022-09-05 22:44:00 [place]ida Stout versity of [facility] POCT GLUCOSE (AUTOMATED) 2022-09-05 17:37:00 Oneida Stout versity of [facility] POCT GLUCOSE (AUTOMATED) 2022-09-05 13:54:00 Oneida Stout versity of [facility] POCT GLUCOSE (AUTOMATED) 2022-09-05 10:40:00 Oneida Stout Uni versity of [facility] POCT GLUCOSE (AUTOMATED) 2022-09-05 06:48:00 Oneida Stout versity of [facility] POCT GLUCOSE (AUTOMATED) 2022-09-05 02:16:00 Oneida Stout versity of [facility] POCT GLUCOSE (AUTOMATED) 2022-09-04 22:34:00 Oneida Stout versity of [facility] POCT GLUCOSE (AUTOMATED) 2022-09-04 18:15:00 Oneida Stout versity of [facility] POCT GLUCOSE (AUTOMATED) 2022-09-04 15:32:00 Oneida Stout versity of [facility] POCT GLUCOSE (AUTOMATED) 2022-09-04 06:46:00 Oneida Stout versity of [facility] POCT GLUCOSE (AUTOMATED) 2022-09-04 05:09:00 Oneida Stout versity of [facility] POCT GLUCOSE (AUTOMATED) 2022-09-04 01:55:00 Oneida Stout versity of [facility] POCT GLUCOSE (AUTOMATED) 2022-09-03 23:01:00 Oneida Stout versity of [facility] POCT GLUCOSE (AUTOMATED) 2022-09-03 17:37:00 Oneida Stout Uni versity of [facility] POCT GLUCOSE (AUTOMATED) 2022-09-03 14:01:00 Oneida Stout versity of [facility] BASIC METABOLIC PANEL 2022-09-03 10:39:00 Keya Eason [facility] (NA, K, CL, CO2, GLUCOSE, Medica l Branch BUN, CREATININE, CA) CBC WITH DIFF 2022-09-03 10:39:00 Keya Eason [facility] POCT GLUCOSE (AUTOMATED) 2022-09-03 10:37:00 Oneida Stout [facility] POCT GLUCOSE (AUTOMATED) 2022-09-03 06:15:00 Oneida Stout [facility] POCT GLUCOSE (AUTOMATED) 2022-09-03 03:16:00 Oneida Stout [facility] POCT GLUCOSE (AUTOMATED) 2022-09-02 22:19:00 Oneida Stout [facility] POCT GLUCOSE (AUTOMATED) 2022-09-02 17:44:00 Oneida Stout [facility] POCT GLUCOSE (AUTOMATED) 2022-09-02 13:50:00 Oenida Stout [facility] POCT GLUCOSE (AUTOMATED) 2022-09-02 10:30:00 Oneida Stout [facility] POCT GLUCOSE (AUTOMATED) 2022-09-02 06:17:00 Oneida Stout [facility] POCT GLUCOSE (AUTOMATED) 2022-09-02 02:44:00 Oneida Stout [facility] POCT GLUCOSE (AUTOMATED) 2022-09-01 22:11:00 Oneida Stout [facility] POCT GLUCOSE (AUTOMATED) 2022-09-01 17:33:00 Oneida Stout [facility] POCT GLUCOSE (AUTOMATED) 2022-09-01 14:08:00 Oneida Stout [facility] POCT GLUCOSE (AUTOMATED) 2022-09-01 11:14:00 Oneida Stout [facility] POCT GLUCOSE (AUTOMATED) 2022-09-01 06:12:00 Oneida Stout [facility] POCT GLUCOSE (AUTOMATED) 2022-09-01 02:29:00 Oneida Stout [facility] POCT GLUCOSE (AUTOMATED) 2022-08-31 22:05:00 Oneida Stout [facility] POCT GLUCOSE (AUTOMATED) 2022-08-31 17:11:00 Oneida Stout [facility] POCT GLUCOSE (AUTOMATED) 2022-08-31 13:26:00 Oneida Stout [facility] POCT GLUCOSE (AUTOMATED) 2022-08-31 10:19:00 [facility]OMATED) 2022-08-31 06:55:00 Oneida Stout Del[facility] PO[facility] GLUCOSE (AUTOMATED) 2022-08-31 03:43:00 Oneida Stout [facility] POCT GLUCOSE (AUTOMATED) 2022-08-31 00:59:00 Oneida Stout [facility] POCT GLUCOSE (AUTOMATED) 2022-08-30 22:46:00 Oneida Stout [facility] POCT GLUCOSE (AUTOMATED) 2022-08-30 18:46:00 Oneida Stout [facility] POCT GLUCOSE (AUTOMATED) 2022-08-30 15:30:00 Oneida Stout [facility] BASIC METABOLIC PANEL 2022-08-30 11:27:00 [facility] ([facility], K, CL, CO2, GLUCOSE, Medica l Branch BUN, CREATININE, CA) CBC WITH DIFF 2022-08-30 11:27:00 [facility] 2022-08-30 10:52:00 Oneida Stout [facility] POCT GLUCOSE (AUTOMATED) 2022-08-30 06:06:00 Oneida Stout [facility] POCT GLUCOSE (AUTOMATED) 2022-08-30 03:53:00 Oneida Stout [facility] POCT GLUCOSE (AUTOMATED) 2022-08-30 01:35:00 Oneida Stout [facility] POCT GLUCOSE (AUTOMATED) 2022-08-29 21:04:00 Oneida Stout [facility] POCT GLUCOSE (AUTOMATED) 2022-08-29 16:10:00 Oneida Stout [facility] BASIC METABOLIC PANEL 2022-08-29 10:38:00 Gera Winters [facility] (NA, K, CL, CO2, GLUCOSE, Medica l Branch BUN, CREATININE, CA) CBC WITH DIFF 2022-08-29 10:38:00 [facility]) 2022-08-29 10:17:00 Oneida Stout versity of [facility] POCT GLUCOSE (AUTOMATED) 2022-08-29 05:42:00 Oneida Stout Deloris versity of [facility] POCT GLUCOSE (AUTOMATED) 2022-08-29 02:01:00 Oneida Stout Deloris versity of [facility] POCT GLUCOSE (AUTOMATED) 2022-08-28 22:52:00 Oneida Stout Deloris versity of [facility] POCT GLUCOSE (AUTOMATED) 2022-08-28 17:36:00 Oneida Stout [facility] versity of [facility] POCT GLUCOSE (AUTOMATED) 2022-08-28 14:05:00 Oneida Stout [facility] POCT GLUCOSE (AUTOMATED) 2022-08-28 09:54:00 Oneida Stout Deloris versity of [facility] POCT GLUCOSE (AUTOMATED) 2022-08-28 06:10:00 Oneida Stout Deloris versity of [facility] POCT GLUCOSE (AUTOMATED) 2022-08-28 03:57:00 Oneida Stout Deloris versity of [facility] POCT GLUCOSE (AUTOMATED) 2022-08-28 02:40:00 Oneida Stout [facility] POCT GLUCOSE (AUTOMATED) 2022-08-27 22:59:00 Oneida Stout [facility] versity of [facility] POCT GLUCOSE (AUTOMATED) 2022-08-27 22:30:00 Oneida Stout [facility] POCT GLUCOSE (AUTOMATED) 2022-08-27 22:29:00 Oneida Stout [facility] POCT GLUCOSE (AUTOMATED) 2022-08-27 18:04:00 Oneida Stout [facility] POCT GLUCOSE (AUTOMATED) 2022-08-27 14:18:00 Oneida Stout [facility] POCT GLUCOSE (AUTOMATED) 2022-08-27 12:09:00 Oneida Stout [facility] BASIC METABOLIC PANEL 2022-08-27 10:43:00 Gera Winters [facility] (NA, K, CL, CO2, GLUCOSE, Medica l Branch BUN, CREATININE, CA) CBC WITH DIFF 2022-08-27 10:43:00 Gera Winters [facility] POCT GLUCOSE (AUTOMATED) 2022-08-27 10:14:00 Oneida Stout [facility] PO[facility] GLUCOSE (AUTOMATED) 2022-08-27 06:50:00 Oneida Stout versity of [facility] POCT GLUCOSE (AUTOMATED) 2022-08-27 04:05:00 [facility] POCT GLUCOSE (AUTOMATED) 2022-08-26 22:44:00 [facility] POCT GLUCOSE (AUTOMATED) 2022-08-26 18:03:00 Oneida Stout [facility]ity of [facility] POCT GLUCOSE (AUTOMATED) 2022-08-26 15:13:00 [facility] POCT GLUCOSE (AUTOMATED) 2022-08-26 14:11:00 [facility] POCT GLUCOSE (AUTOMATED) 2022-08-26 10:19:00 [facility] POCT GLUCOSE (AUTOMATED) 2022-08-26 06:07:00 [facility] POCT GLUCOSE (AUTOMATED) 2022-08-26 03:22:00 [facility] POCT GLUCOSE (AUTOMATED) 2022-08-25 23:55:00 Oneida Stout [facility] PO[facility]UCOSE (AUTOMATED) 2022-08-25 20:43:00 Oneida Stout [facility] POCT GLUCOSE (AUTOMATED) 2022-08-25 15:24:00 Oneida Stout [facility] BASIC METABOLIC PANEL 2022-08-25 10:37:00 Gera Winters [facility] (NA, K, CL, CO2, GLUCOSE, Medica l Branch BUN, CREATININE, CA) CBC WITH DIFF 2022-08-25 10:37:00 Gera Winters [facility] POCT GLUCOSE (AUTOMATED) 2022-08-25 10:17:00 Oneida Stout [facility] POCT GLUCOSE (AUTOMATED) 2022-08-25 06:56:00 Oneida Stout [facility] POCT GLUCOSE (AUTOMATED) 2022-08-25 03:07:00 Oneida Stout [facility] POCT GLUCOSE (AUTOMATED) 2022-08-24 22:03:00 Oneida Stout versity of [facility] POCT GLUCOSE (AUTOMATED) 2022-08-24 18:42:00 Oneida Stout versity of [facility] POCT GLUCOSE (AUTOMATED) 2022-08-24 14:24:00 Oneida Stout versity of [facility] POCT GLUCOSE (AUTOMATED) 2022-08-24 10:59:00 Oneida Stout versity of [facility] BASIC METABOLIC PANEL 2022-08-24 10:54:00 [facility] [place] (NA, K, CL, CO2, GLUCOSE, Medica l Branch BUN, CREATININE, CA) CBC WITH DIFF 2022-08-24 10:54:00 Keya Eason [facility] POCT GLUCOSE (AUTOMATED) 2022-08-24 05:34:00 Oneida Stout versity of [facility] POCT GLUCOSE (AUTOMATED) 2022-08-24 03:03:00 Oneida Stout versity of [facility] POCT GLUCOSE (AUTOMATED) 2022-08-23 22:36:00 Oneida Stout versity of [facility] POCT GLUCOSE (AUTOMATED) 2022-08-23 17:56:00 Oneida Stout versity of [facility] POCT GLUCOSE (AUTOMATED) 2022-08-23 14:16:00 Oneida Stout versity of [facility] BASIC METABOLIC PANEL 2022-08-23 10:47:00 [facility] ([facility], K, CL, CO2, GLUCOSE, Medica l Branch BUN, CREATININE, CA) CBC WITH DIFF 2022-08-23 10:47:00 Jenaro Keyaron Silva [facility] POCT GLUCOSE (AUTOMATED) 2022-08-23 10:45:00 Oneida Stout versity of [facility] POCT GLUCOSE (AUTOMATED) 2022-08-23 05:38:00 Oneida Stout [facility]ity of [facility] POCT GLUCOSE (AUTOMATED) 2022-08-23 03:06:00 Oneida Stout [facility]ity of [facility] POCT GLUCOSE (AUTOMATED) 2022-08-22 23:45:00 Oneida Stout versity of [facility] PREPARE PACKED RBC 2022-08-22 22:19:39 Keya Eason [facility] ABORH CONFIRMATION (LAB 2022-08-22 21:03:00 Oneida Stout [facility] ONLY) Medical Branch HB ABO GROUPING 2022-08-22 20:08:00 Keya Eason [facility] POCT GLUCOSE (AUTOMATED) 2022-08-22 17:49:00 Oneida Stout [facility] POCT GLUCOSE (AUTOMATED) 2022-08-22 13:56:00 Oneida Stout [facility] FERRITIN SERUM 2022-08-22 09:48:00 Keya Eason Shira [facility] BASIC METABOLIC PANEL 2022-08-22 09:48:00 Keya Eason [facility] (NA, K, CL, CO2, GLUCOSE, Medica l Branch BUN, CREATININE, CA) CBC WITH DIFF 2022-08-22 09:48:00 Keya Eason [facility] POCT GLUCOSE (AUTOMATED) 2022-08-22 09:20:00 Oneida Stout [facility] POCT GLUCOSE (AUTOMATED) 2022-08-22 04:01:00 Oneida Stout [facility] POCT GLUCOSE (AUTOMATED) 2022-08-21 23:00:00 Oneida Stout [facility] BASIC METABOLIC PANEL 2022-08-21 17:50:00 [facility] ([facility], K, CL, CO2, GLUCOSE, Yael J Medica l Branch BUN, CREATININE, CA) POCT GLUCOSE (AUTOMATED) 2022-08-21 17:48:00 Oneida Stout [facility] POCT GLUCOSE (AUTOMATED) 2022-08-21 15:26:00 Oneida Stout [facility] POCT GLUCOSE (AUTOMATED) 2022-08-21 13:40:00 Oneida Stout [facility] POCT GLUCOSE (AUTOMATED) 2022-08-21 11:03:00 Oneida Stout [facility] POCT GLUCOSE (AUTOMATED) 2022-08-21 06:37:00 Oneida Stout [facility] POCT GLUCOSE (AUTOMATED) 2022-08-21 03:43:00 [facility] POCT GLUCOSE (AUTOMATED) 2022-08-21 02:10:00 Oneida Stout [facility] POCT GLUCOSE (AUTOMATED) 2022-08-21 00:15:00 Oneida Stout [facility] PO[facility] GLUCOSE (AUTOMATED) 2022-08-20 19:14:00 Oneida Stout [facility] BASIC METABOLIC PANEL 2022-08-20 16:34:00 Emely [facility] (NA, K, CL, CO2, GLUCOSE, Medica l Branch BUN, CREATININE, CA) CBC WITH DIFF 2022-08-20 16:34:00 Emely [facility] POCT GLUCOSE (AUTOMATED) 2022-08-20 15:43:00 Oneida Stout [facility] POCT GLUCOSE (AUTOMATED) 2022-08-20 11:35:00 Oneida Stout [facility] POCT GLUCOSE (AUTOMATED) 2022-08-20 08:17:00 Oneida Stout [facility] POCT GLUCOSE (AUTOMATED) 2022-08-20 02:31:00 Oneida Stout [facility] POCT GLUCOSE (AUTOMATED) 2022-08-19 22:14:00 Oneida Stout [facility] URINALYSIS 2022-08-19 19:12:00 Oneida Stout [facility] URINE CULTURE 2022-08-19 19:12:00 Charlie Mccoy [facility] POCT GLUCOSE (AUTOMATED) 2022-08-19 17:14:00 Oneida Stout [facility] POCT GLUCOSE (AUTOMATED) 2022-08-19 13:22:00 Oneida Stout [facility] POCT GLUCOSE (AUTOMATED) 2022-08-19 10:15:00 Oneida Stout [facility] BASIC METABOLIC PANEL 2022-08-19 09:55:00 Keya Eason [facility] (NA, K, CL, CO2, GLUCOSE, Medica l Branch BUN, CREATININE, CA) CBC WITH DIFF 2022-08-19 09:55:00 Keya Eason [facility] POCT GLUCOSE (AUTOMATED) 2022-08-19 06:13:00 Oneida Stout [facility] PO[facility] GLUCOSE (AUTOMATED) 2022-08-19 02:18:00 Oneida Stout [facility] PO[facility] GLUCOSE (AUTOMATED) 2022-08-18 22:17:00 Oneida Stout [facility] LACTIC ACID WHOLE BLOOD 2022-08-18 21:47:00 Keya Eason [facility] POCT GLUCOSE (AUTOMATED) 2022-08-18 17:34:00 Oneida Stout [facility] POCT GLUCOSE (AUTOMATED) 2022-08-18 14:18:00 Oneida Stout [facility] BASIC METABOLIC PANEL 2022-08-18 10:37:00 Keya Eason [facility] (NA, K, CL, CO2, GLUCOSE, Medica l Branch BUN, CREATININE, CA) CBC WITH DIFF 2022-08-18 10:37:00 Keya Eason [facility] POCT GLUCOSE (AUTOMATED) 2022-08-18 10:19:00 Oneida Stout [facility] PO[facility] GLUCOSE (AUTOMATED) 2022-08-18 06:05:00 [facility] POCT GLUCOSE (AUTOMATED) 2022-08-18 01:48:00 Oneida Stout [facility] BASIC METABOLIC PANEL 2022-08-18 00:19:00 Oneida Stout [facility] (NA, K, CL, CO2, GLUCOSE, Medica l Branch BUN, CREATININE, CA) POCT GLUCOSE (AUTOMATED) 2022-08-18 00:02:00 Oneida Stout [facility] PO[facility] GLUCOSE (AUTOMATED) 2022-08-17 20:38:00 [facility] POCT GLUCOSE (AUTOMATED) 2022-08-17 17:11:00 One[facility] POCT GLUCOSE (AUTOMATED) 2022-08-17 16:46:00 Oneida Stout [facility]ity of [facility] POCT GLUCOSE (AUTOMATED) 2022-08-17 13:52:00 Oneida Stout [facility] POCT GLUCOSE (AUTOMATED) 2022-08-17 11:47:00 Oneida Stout [facility] MAGNESIUM 2022-08-17 10:43:00 [facility] 2022-08-17 10:43:00 Jin Valiente [facility] (NA, K, CL, CO2, GLUCOSE, Medica l Branch BUN, CREATININE, CA) CBC WITH DIFF 2022-08-17 10:43:00 Rocco [facility] POCT GLUCOSE (AUTOMATED) 2022-08-17 10:13:00 Oneida Stout [facility] POCT GLUCOSE (AUTOMATED) 2022-08-17 06:47:00 Oneida Stout [facility] POCT GLUCOSE (AUTOMATED) 2022-08-17 03:39:00 Oneida Stout [facility] POCT GLUCOSE (AUTOMATED) 2022-08-16 22:01:00 Jin Valiente [facility] PHOSPHORUS 2022-08-16 14:11:00 Rocco [facility] COMP. METABOLIC PANEL 2022-08-16 14:11:00 Renetta Desia [facility] ([id number]) [facility] LIPID PANEL ([id number])(TOTAL 2022-08-16 14:11:00 Keya Eason [facility] CHOLESTEROL, [facility] TRIGLYCERIDES, HDL) IRON PANEL 2022-08-16 14:11:00 Keya Eason [facility] CBC WITH DIFF 2022-08-16 14:11:00 Renetta Desai [facility] GLYCOSYLATED HEMOGLOBIN 2022-08-16 14:11:00 Keya Eason [facility] (A1C) [facility] URINE CULTURE 2022-08-16 14:11:00 Renetta Desai [facility] BLOOD CULTURE SCREEN 2022-08-16 14:09:00 Renetta Desai [facility] URINALYSIS 2022-08-16 14:09:00 Renetta Desai [facility] POCT GLUCOSE (AUTOMATED) 2022-08-16 13:46:00 Renetta Desai [facility] CONSENT/REFUSAL FOR 2022-08-16 13:43:53 [facility] Un[facility]igned, [facility] EMERGENCY DEPARTMENT 2022-08-16 06:01:00 Doctor Unassigned, No [facility] DOCUMENTS Name [facility] HOSPITAL ADMISSION MISC - 2022-08-16 06:01:00 Doctor Unassigned, No [facility] MEDICARE PATIENTS RIGHTS [facility] IMPORTANT MESSAGE URINALYSIS 2022-08-06 16:00:00 Cirilo Martines [facility] COMP. METABOLIC PANEL 2022-08-06 15:25:00 Cirilo Martines [facility] ([id number]) [facility] CBC WITH DIFF 2022-08-06 15:25:00 Cirilo Martines [facility] INSURANCE CORRESPONDENCE 2022-07-21 06:01:00 Doctor Unassigned, No [facility] XR CHEST 1 VW 2022-07-20 20:41:12 Singer [facility] LACTIC ACID WHOLE BLOOD 2022-07-20 20:16:[address] [facility] [place] TROPONIN I 2022-07-20 20:07:00 Singer [facility] COMP. METABOLIC PANEL 2022-07-20 20:07:00 Devika Orr [facility] ([id number]) [facility] CBC WITH DIFF 2022-07-20 20:07:00 Singer [facility] URINALYSIS 2022-07-20 20:07:00 [facility] RAPID INFLUENZA A/B 2022-07-20 20:07:00 Devika Orr [facility] COVID-19 (ID NOW RAPID 2022-07-20 20:07:00 Singer Devika [facility] TESTING) [facility] URINALYSIS 2022-07-16 14:11:00 Renetta Desai [facility] COMP. METABOLIC PANEL 2022-07-16 14:09:00 Renetta Desai [facility] ([id number]) Medical Branch CBC WITH DIFF 2022-07-16 14:09:00 Renetta Desai [facility] POCT GLUCOSE (AUTOMATED) 2022-07-09 00:24:00 Cirilo Martines Un [facility] POCT GLUCOSE (AUTOMATED) 2022-07-08 22:18:00 Cirilo Martines Un [facility] POCT GLUCOSE (AUTOMATED) 2022-07-08 19:32:00 Cirilo Martines Un [facility] DME/SUPPLY JUSTIFICATION 2022-06-27 06:01:00 Doctor Unassigned, No [facility] POCT GLUCOSE (AUTOMATED) 2022-04-27 18:51:00 Rashad Burn[facility] GLUCOSE (AUTOMATED) 2022-04-27 16:53:00 Rashad Burnett Uni versity [facility] POCT GLUCOSE (AUTOMATED) 2022-04-27 16:53:00 Rashad Burnett [facility] URINALYSIS 2022-04-27 16:47:00 Rudy Moseley [facility] POCT GLUCOSE (AUTOMATED) 2022-04-27 13:17:00 Rashad Burnett [facility] POCT GLUCOSE (AUTOMATED) 2022-04-27 13:17:00 Rashad Burnett [facility] POCT GLUCOSE (AUTOMATED) 2022-04-27 08:54:00 Rashad Burnett Uni versity [facility] POCT GLUCOSE (AUTOMATED) 2022-04-27 08:54:00 Rashad Burnett Uni versity [facility] BASIC METABOLIC PANEL 2022-04-27 08:36:00 [facility] [place] (NA, K, CL, CO2, GLUCOSE, Medica l Branch BUN, CREATININE, CA) CBC WITH DIFF 2022-04-27 08:36:00 Keya Eason [facility] BASIC METABOLIC PANEL 2022-04-27 08:36:00 Key[facility] Eason [facility] [place] (NA, K, CL, CO2, GLUCOSE, Medica l Branch BUN, CREATININE, CA) CBC WITH DIFF 2022-04-27 08:36:00 [facility] 2022-04-27 04:26:00 OvRashad chi Uni versity [facility] POCT GLUCOSE (AUTOMATED) 2022-04-27 04:26:00 Rashad Burnett [facility] POCT GLUCOSE (AUTOMATED) 2022-04-27 01:15:00 OvAmy chii Uni versity of [facility] POCT GLUCOSE (AUTOMATED) 2022-04-27 01:15:00 Rashad Burnett Uni [facility] POCT GLUCOSE (AUTOMATED) 2022-04-26 21:51:00 Rashad Burnett Uni versity [facility] POCT GLUCOSE (AUTOMATED) 2022-04-26 21:51:00 Rashad Burnett Uni versity [facility] XR CHEST 1 VW 2022-04-26 20:37:27 Rudy Moseley [facility] XR CHEST 1 VW 2022-04-26 20:37:27 Rudy Moseley [facility] POCT GLUCOSE (AUTOMATED) 2022-04-26 16:30:00 Rashad Burnett Uni versity [facility] POCT GLUCOSE (AUTOMATED) 2022-04-26 16:30:00 Rashad Burnett Uni [facility]ity [facility] CENTRAL VENOUS CATHETER 2022-04-26 13:03:00 Sheyla Lin [facility] CENTRAL VENOUS CATHETER 2022-04-26 13:03:00 Sheyla Lin [facility] POCT GLUCOSE (AUTOMATED) 2022-04-26 12:38:00 OvRashad chi Uni [facility]ity [facility] POCT GLUCOSE (AUTOMATED) 2022-04-26 12:38:00 Ovarti Rashad [facility] POCT GLUCOSE (AUTOMATED) 2022-04-26 09:08:00 Rashad Burnett [facility] POCT GLUCOSE (AUTOMATED) 2022-04-26 09:08:00 Amy Burnetti Uni [facility]ity [facility] BASIC METABOLIC PANEL 2022-04-26 09:07:00 JenaroKeyaita [facility] [place] (NA, K, CL, CO2, GLUCOSE, Medica l Branch BUN, CREATININE, CA) CBC WITH DIFF 2022-04-26 09:07:00 Keya Easonita [facility] BASIC METABOLIC PANEL 2022-04-26 09:07:00 Keya Easonita [facility] [place] (NA, K, CL, CO2, GLUCOSE, Medica l Branch BUN, CREATININE, CA) CBC WITH DIFF 2022-04-26 09:07:00 JenaroKeya Shira [facility] POCT GLUCOSE (AUTOMATED) 2022-04-26 04:37:00 Lex Rashad [facility] POCT GLUCOSE (AUTOMATED) 2022-04-26 04:37:00 Amy Burnetti [facility] POCT GLUCOSE (AUTOMATED) 2022-04-26 02:06:00 Ovarti Rashad [facility] POCT GLUCOSE (AUTOMATED) 2022-04-26 02:06:00 Lex Rashad [facility] POCT GLUCOSE (AUTOMATED) 2022-04-25 20:40:00 Oville Rashad [facility] POCT GLUCOSE (AUTOMATED) 2022-04-25 20:40:00 Ovarti Rashad [facility] POCT GLUCOSE (AUTOMATED) 2022-04-25 16:30:00 Ovarti Rashad [facility] POCT GLUCOSE (AUTOMATED) 2022-04-25 16:30:00 Oville Rashad [facility] POCT GLUCOSE (AUTOMATED) 2022-04-25 11:27:00 Ovarti Rashad [facility] POCT GLUCOSE (AUTOMATED) 2022-04-25 11:27:00 Ovarti Rashad [facility] BASIC METABOLIC PANEL 2022-04-25 09:01:00 Ailyn Yusuf [facility] (NA, K, CL, CO2, GLUCOSE, Medica l Branch BUN, CREATININE, CA) CBC WITH DIFF 2022-04-25 09:01:00 Ailyn Yusuf [facility] BASIC METABOLIC PANEL 2022-04-25 09:01:00 Ailyn Yusuf [facility] (NA, K, CL, CO2, GLUCOSE, Medica l Branch BUN, CREATININE, CA) CBC WITH DIFF 2022-04-25 09:01:00 Ailyn Yusuf [facility] POCT GLUCOSE (AUTOMATED) 2022-04-25 08:51:00 OvRashad chi Uni versity [facility] POCT GLUCOSE (AUTOMATED) 2022-04-25 08:51:00 Rashad Burnett Uni versity [facility] POCT GLUCOSE (AUTOMATED) 2022-04-25 06:04:00 [facility]OMATED) 2022-04-25 06:04:00 [facility]ad [facility] (AUTOMATED) 2022-04-25 01:56:00 Rashad Burnett Uni versity [facility] POCT GLUCOSE (AUTOMATED) 2022-04-25 01:56:00 Rashad Burnett [facility] POCT GLUCOSE (AUTOMATED) 2022-04-24 23:12:00 Rashad Burnett Uni versity [facility] POCT GLUCOSE (AUTOMATED) 2022-04-24 23:12:00 Rashad Burnett Uni versity [facility] POCT GLUCOSE (AUTOMATED) 2022-04-24 19:00:00 Rashad Burnett Uni versity [facility] POCT GLUCOSE (AUTOMATED) 2022-04-24 19:00:00 Rashad Burnett [facility] PHOSPHORUS 2022-04-24 15:33:00 [facility]-24 15:33:00 Lex [facility] BASIC METABOLIC PANEL 2022-04-24 15:33:00 Rashad Burnett [facility] (NA, K, CL, CO2, GLUCOSE, Medica l Branch BUN, CREATININE, CA) CBC WITH DIFF 2022-04-24 15:33:00 Lex [facility] N-TERMINAL PRO-BNP 2022-04-24 15:33:00 Ovarti [facility] PHOSPHORUS 2022-04-24 15:33:00 Ovarti [facility] MAGNESIUM 2022-04-24 15:33:00 Ovarti [facility] BASIC METABOLIC PANEL 2022-04-24 15:33:00 Lex [facility] (NA, K, CL, CO2, GLUCOSE, Medica l Branch BUN, CREATININE, CA) CBC WITH DIFF 2022-04-24 15:33:00 Ovarti [facility] N-TERMINAL PRO-BNP 2022-04-24 15:33:00 Lex [facility] POCT GLUCOSE (AUTOMATED) 2022-04-24 15:20:00 Rashad Burnett [facility] POCT GLUCOSE (AUTOMATED) 2022-04-24 15:20:00 Rashad Burnett [facility] VITAMIN D, 25-OH 2022-04-24 09:08:00 Hakeem [facility] VITAMIN D, 25-OH 2022-04-24 09:08:00 Hakeem [facility] POCT GLUCOSE (AUTOMATED) 2022-04-24 08:42:00 Rashad Burnett [facility] POCT GLUCOSE (AUTOMATED) 2022-04-24 08:42:00 Rashad [facility] URINALYSIS 2022-04-24 07:12:00 Argelia [facility] URINE CULTURE 2022-04-24 07:12:00 Argelia [facility] URINALYSIS 2022-04-24 07:12:00 Argelia [facility] URINE CULTURE 2022-04-24 07:12:00 Argelia [facility] POCT GLUCOSE (AUTOMATED) 2022-04-24 05:52:00 Oville, Rashad [facility] POCT GLUCOSE (AUTOMATED) 2022-04-24 05:52:00 OvAmy chii Uni versity of [facility] POCT GLUCOSE (AUTOMATED) 2022-04-24 01:27:00 Lex Rashad [facility] POCT GLUCOSE (AUTOMATED) 2022-04-24 01:27:00 Amy Burnetti [facility] POCT GLUCOSE (AUTOMATED) 2022-04-23 22:58:00 Ovarti Rashad [facility] POCT GLUCOSE (AUTOMATED) 2022-04-23 22:58:00 Ovarti, Rashad [facility] POCT GLUCOSE (AUTOMATED) 2022-04-23 18:26:00 Lex Rashad [facility] POCT GLUCOSE (AUTOMATED) 2022-04-23 18:26:00 Amy Burnetti [facility] POCT GLUCOSE (AUTOMATED) 2022-04-23 14:45:00 Ovarti Rashad [facility] POCT GLUCOSE (AUTOMATED) 2022-04-23 14:45:00 Lex Rashad [facility] POCT GLUCOSE (AUTOMATED) 2022-04-23 12:39:00 Lex Rashad [facility] POCT GLUCOSE (AUTOMATED) 2022-04-23 12:39:00 Amy Burnetti [facility] BASIC METABOLIC PANEL 2022-04-23 11:22:00 Oneida Stout [facility] (NA, K, CL, CO2, GLUCOSE, Medica l Branch BUN, CREATININE, CA) BASIC METABOLIC PANEL 2022-04-23 11:22:00 Oneida Stout [facility] (NA, K, CL, CO2, GLUCOSE, Medica l Branch BUN, CREATININE, CA) POCT GLUCOSE (AUTOMATED) 2022-04-23 06:49:00 Rashad Burnett [facility] POCT GLUCOSE (AUTOMATED) 2022-04-23 06:49:00 Rashad Burnett [facility] US RETROPERITONEAL 2022-04-23 02:05:00 Hakeem, [facility] US RETROPERITONEAL 2022-04-23 02:05:00 Hakeem [facility] POCT GLUCOSE (AUTOMATED) 2022-04-23 01:54:00 Rash[facility] POCT GLUCOSE (AUTOMATED) 2022-04-23 01:54:00 Rashad Burnett [facility] POCT GLUCOSE (AUTOMATED) 2022-04-22 21:45:00 Rashad [facility] POCT GLUCOSE (AUTOMATED) 2022-04-22 21:45:00 Rashad Burnett [facility] POCT GLUCOSE (AUTOMATED) 2022-04-22 17:09:00 Arielle Palomino [facility] POCT GLUCOSE (AUTOMATED) 2022-04-22 17:09:00 Arielle Palomino [facility] CREATINE KINASE 2022-04-22 16:35:00 Hakeem [facility] TROPONIN I 2022-04-22 16:35:00 Candelario farheen [facility] BASIC METABOLIC PANEL 2022-04-22 16:35:00 Arielle Palomino [facility] (NA, K, CL, CO2, GLUCOSE, Medica l Branch BUN, CREATININE, CA) CREATINE KINASE 2022-04-22 16:35:00 Hakeem [facility] TROPONIN I 2022-04-22 16:35:00 Arielle Palomino [facility] BASIC METABOLIC PANEL 2022-04-22 16:35:00 Arielle Palomino [facility] (NA, K, CL, CO2, GLUCOSE, Medica l Branch BUN, CREATININE, CA) OCCULT (GUAIAC) BLOOD 2022-04-22 15:48:00 Arielle Palomino [facility] OCCULT (GUAIAC) BLOOD 2022-04-22 15:48:00 Arielle Palomino [facility] TRANSTHORACIC ECHO (TTE) 2022-04-22 14:55:00 Arielle Palomino [facility] TRANSTHORACIC ECHO (TTE) 2022-04-22 14:55:00 Arielle Palomino [facility] POCT GLUCOSE (AUTOMATED) 2022-04-22 12:40:00 Arielle Palomino [facility] POCT GLUCOSE (AUTOMATED) 2022-04-22 12:40:00 Arielle Palomino [facility] TROPONIN I 2022-04-22 12:13:00 Arielle Palomino [facility] INTACT PTH CALCIUM GROUP 2022-04-22 12:13:00 Katrin Palacio [facility] TROPONIN I 2022-04-22 12:13:00 Candelario farheen [facility] INTACT PTH CALCIUM GROUP 2022-04-22 12:13:00 Katrin Pal[facility] SPUTUM CULTURE 2022-04-22 11:18:00 Candelario farheen [facility] SPUTUM CULTURE 2022-04-22 11:18:00 Candelario farheen [facility] COMP. METABOLIC PANEL 2022-04-22 11:00:00 Arielle Palomino [facility] ([id number]) [facility] SEDIMENTATION RATE 2022-04-22 11:00:00 Arielle Palomino [facility] CBC WITH DIFF 2022-04-22 11:00:00 Candelario farheen [facility] N-TERMINAL PRO-BNP 2022-04-22 11:00:00 Arielle Palomino [facility] COMP. METABOLIC PANEL 2022-04-22 11:00:00 Arielle Palomino [facility] ([id number]) [facility] SEDIMENTATION RATE 2022-04-22 11:00:00 Arielle Palomino [facility] CBC WITH DIFF 2022-04-22 11:00:00 Candelario farheen [facility] N-TERMINAL PRO-BNP 2022-04-22 11:00:00 Candelario farheen [facility] PHOSPHORUS 2022-04-22 07:46:00 Candelario [facility] CREATINE KINASE 2022-04-22 07:46:00 Candelario [facility] URIC ACID 2022-04-22 07:46:00 Candelario [facility] MAGNESIUM 2022-04-22 07:46:00 Candelario [facility] FERRITIN SERUM 2022-04-22 07:46:00 Candelario [facility] VITAMIN B12, LEVEL 2022-04-22 07:46:00 Arielle Palomino [facility] TROPONIN I 2022-04-22 07:46:00 Candelario [facility] THYROID STIMULATING 2022-04-22 07:46:00 Arielle Palomino [facility] HORMONE [facility] LIPID PANEL ([id number])(TOTAL 2022-04-22 07:46:00 Arielle Palomino [facility] CHOLESTEROL, [facility] TRIGLYCERIDES, HDL) IRON PANEL 2022-04-22 07:46:00 Candelario [facility] PROTHROMBIN TIME / INR 2022-04-22 07:46:00 Arielle Palomino [facility] MYCOPLASMA PNEUMONIAE 2022-04-22 07:46:00 Arielle Palomino [facility] ANTIBODY, IGM [facility] VITAMIN D, 25-OH 2022-04-22 07:46:00 Candelario [facility] PROCALCITONIN 2022-04-22 07:46:00 Candelario [facility] PHOSPHORUS 2022-04-22 07:46:00 Candelario [facility] CREATINE KINASE 2022-04-22 07:46:00 Candelario [facility] URIC ACID 2022-04-22 07:46:00 Candelario [facility] MAGNESIUM 2022-04-22 07:46:00 Candelario [facility] FERRITIN SERUM 2022-04-22 07:46:00 Candelario [facility] VITAMIN B12, LEVEL 2022-04-22 07:46:00 Arielle Palomino [facility] TROPONIN I 2022-04-22 07:46:00 Arielle Palomino [facility] THYROID STIMULATING 2022-04-22 07:46:00 [facility] LIPID PANEL ([id number])(TOTAL 2022-04-22 07:46:00 Arielle Palomino [facility] CHOLESTEROL, [facility] TRIGLYCERIDES, HDL) IRON PANEL 2022-04-22 07:46:00 Arielle Palomino [facility] PROTHROMBIN TIME / INR 2022-04-22 07:46:00 Arielle Palomino [facility] MYCOPLASMA PNEUMONIAE 2022-04-22 07:46:00 Arielle Palomino [facility] ANTIBODY, IGM [facility] VITAMIN D, 25-OH 2022-04-22 07:46:00 Candelario farheen [facility] PROCALCITONIN 2022-04-22 07:46:00 Arielle Palomino [facility] OSMOLALITY URINE 2022-04-22 07:42:00 Candelario [facility] URINE DRUG (IMMUNOASSAY) 2022-04-22 07:42:00 Arielle Palomino [facility] SCREEN URINALYSIS 2022-04-22 07:42:00 Arielle Palomino [facility] PNEUMOCOCCAL ANTIGEN 2022-04-22 07:42:00 Arielle Palomino [facility] URINE CULTURE 2022-04-22 07:42:00 Arielle Palomino [facility] UREA NITROGEN, URINE 2022-04-22 07:42:00 Arielle Palomino [facility] SODIUM, URINE RANDOM 2022-04-22 07:42:00 Arielle Palomino [facility] PROTEIN CREAT RATIO URINE 2022-04-22 07:42:00 Arielle Palomino [facility] OSMOLALITY URINE 2022-04-22 07:42:00 Candelario farheen [facility] URINE DRUG (IMMUNOASSAY) 2022-04-22 07:42:00 Arielle Palomino [facility] SCREEN URINALYSIS 2022-04-22 07:42:00 Arielle Palomino [facility] PNEUMOCOCCAL ANTIGEN 2022-04-22 07:42:00 Arielle Palomino [facility] URINE CULTURE 2022-04-22 07:42:00 Arielle Palomino [facility] UREA NITROGEN, URINE 2022-04-22 07:42:00 Arielle Palomino [facility] SODIUM, URINE RANDOM 2022-04-22 07:42:00 Arielle Palomino [facility] PROTEIN CREAT RATIO URINE 2022-04-22 07:42:00 [facility] 2022-04-22 07:34:00 Arielle Palomino [facility] POCT GLUCOSE (AUTOMATED) 2022-04-22 07:34:00 Arielle Palomino [facility] CT THORAX WO CONTRAST 2022-04-22 01:13:00 [facility]AST 2022-04-22 01:13:00 Mateusz Iqbal [facility] HB ECG ROUTINE & RHYTHM 2022-04-21 23:50:22 Farida [facility] HB ECG ROUTINE & RHYTHM 2022-04-21 23:50:22 [facility] CHEST 1 VW 2022-04-21 23:43:13 Mateusz Iqbal [facility] XR CHEST 1 VW 2022-04-21 23:43:13 Mateusz Iqbal [facility] BLOOD CULTURE SCREEN 2022-04-21 23:43:00 Mateusz Iqbal [facility] BLOOD CULTURE SCREEN 2022-04-21 23:43:00 Mateusz Iqbal [facility] BLOOD CULTURE SCREEN 2022-04-21 23:42:00 CortezMateusz martin [facility] TROPONIN I 2022-04-21 23:42:00 Farida [facility] BASIC METABOLIC PANEL 2022-04-21 23:42:00 [facility], CL, CO2, GLUCOSE, Medica l Branch BUN, CREATININE, CA) DIFF CONSULT 2022-04-21 23:42:00 Arielle Palomino [facility] CBC WITH DIFF 2022-04-21 23:42:00 Cortez, [facility] GLYCOSYLATED HEMOGLOBIN 2022-04-21 23:42:00 Arielle Palomino [facility] (A1C) Medical Branch N-TERMINAL PRO-BNP 2022-04-21 23:42:00 Farida [facility] COVID-19 (ID NOW RAPID 2022-04-21 23:42:00 Mateusz Iqbal [facility] TESTING) Medical Branch LAB ONLY COVID 2022-04-21 23:42:00 Farida [facility] BLOOD CULTURE SCREEN 2022-04-21 23:42:00 Mateusz Iqbal [facility] TROPONIN I 2022-04-21 23:42:00 Farida [facility] BASIC METABOLIC PANEL 2022-04-21 23:42:00 Mateusz Iqbal [facility] (NA, K, CL, CO2, GLUCOSE, Medica l Branch BUN, CREATININE, CA) DIFF CONSULT 2022-04-21 23:42:00 Arielle Palomino [facility] CBC WITH DIFF 2022-04-21 23:42:00 Farida [facility] GLYCOSYLATED HEMOGLOBIN 2022-04-21 23:42:00 Arielle Palomino [facility] (A1C) Medical Branch N-TERMINAL PRO-BNP 2022-04-21 23:42:00 [facility] (ID NOW RAPID 2022-04-21 23:42:00 Mateusz Iqbal [facility] TESTING) Medical Branch LAB ONLY COVID 2022-04-21 23:42:00 Mateusz Iqbal [facility] INTERPRETATION Medical Branch EMERGENCY DEPARTMENT 2022-04-21 05:01:00 [facility] EMERGENCY DEPARTMENT 2022-04-21 05:01:00 Doctor Unassigned, No [facility] DOCUMENTS Name Medical Branch Bronchoscopy, rigid or 2022-01-22 22:35:00 Memor ial Buck flexible, including fluoroscopic guidance, when performed; with bronchial alveolar lavage Amputation through 2014-07-31 00:00:00 [facility] Me dical Metatarsal Bones Amputation of Leg through 2014-07-31 00:00:00 Pr ivia Medical Tibia and Fibula Appendectomy [facility] Medical Insertion of Tunneled [facility] ical Dialysis Catheter Using Fluoroscopic Guidance Place Gastrostomy Tube [facility] dical Tracheostomy [facility] Medical Appendectomy [facility] Tonsillectomy [facility] Amputation<sup>1</sup> [facility] Irrigation of wound [facility] muñoz Transmetatarsal [facility] amputation of foot Amputation great toe [facility] rmann Appendix operation [facility] bhavin Amputation of toe and [facility] ermann metatarsal Amputation [facility] below-knee<sup>2</sup> Amputation of toe and [facility] ermann metatarsal Appendix operation [facility] bhavin Plan of Care Planned Activity Planned Date Details Comments Source Future Scheduled 2025-08-16 Lipid panel (procedure) [facility] 00:00:00 [code = [id number]] Medical Ce nter Future Scheduled 2025-08-16 Lipid panel (procedure) [facility] 00:00:00 [code = [id number]] Medical Ce nter Future Scheduled 2025-08-16 Lipid panel (procedure) [facility] 00:00:00 [code = 11861119] Medical Ce nter Future Scheduled 2025-08-16 Lipid panel (procedure) [facility] 00:00:00 [code = 76072412] Medical Ce nter Future Scheduled 2025-08-16 Lipid panel (procedure) [facility] 00:00:00 [code = [id number]] Medical Ce nter Future Scheduled 2025-08-16 Lipid panel (procedure) [facility] 00:00:00 [code = [id number]] Medical Ce nter Future Scheduled 2025-08-16 Lipid panel (procedure) [facility] 00:00:00 [code = 30692949] Medical Ce nter Future Scheduled 2025-08-16 Lipid panel (procedure) [facility] 00:00:00 [code = 28340249] Medical Ce nter Future Scheduled 2025-08-16 Lipid panel (procedure) [facility] 00:00:00 [code = 77410628] Medical Ce nter Future Scheduled 2025-08-16 Lipid panel (procedure) [facility] 00:00:00 [code = 75007530] Medical Ce nter Future Scheduled 2025-08-16 Lipid panel (procedure) [facility] 00:00:00 [code = 67987063] Medical Ce nter Future Scheduled 2025-08-16 Lipid panel (procedure) [facility] 00:00:00 [code = 53353449] Medical Ce nter Future Scheduled 2025-08-16 Lipid panel (procedure) [facility] 00:00:00 [code = 04971339] Medical Ce nter Future Scheduled 2025-08-16 Lipid panel (procedure) [facility] 00:00:00 [code = 29002068] Medical Ce nter Future Scheduled 2025-08-16 Lipid panel (procedure) [facility] 00:00:00 [code = 19692034] Medical Ce nter Future Scheduled 2025-08-16 Lipid panel (procedure) [facility] 00:00:00 [code = 10635526] Medical Ce nter Future Scheduled 2025-08-16 Lipid panel (procedure) [facility] 00:00:00 [code = 51373298] Medical Ce nter Future Scheduled 2025-08-16 Lipid panel (procedure) [facility] 00:00:00 [code = 15587073] Medical Ce nter Future Scheduled 2025-08-16 Lipid panel (procedure) [facility] 00:00:00 [code = 82335214] Medical Ce nter Future Scheduled 2025-08-16 Lipid panel (procedure) [facility] 00:00:00 [code = 55456901] Medical Ce nter Future Scheduled 2025-08-16 Lipid panel (procedure) [facility] 00:00:00 [code = 88986736] Medical Ce nter Future Scheduled 2025-08-16 Lipid panel (procedure) [facility] 00:00:00 [code = 77285371] Medical Ce nter Future Scheduled 2025-08-16 Lipid panel (procedure) [facility] 00:00:00 [code = 38920787] Medical Ce nter Future Scheduled 2025-08-16 Lipid panel (procedure) [facility] 00:00:00 [code = 53918252] Medical Ce nter Future Scheduled 2025-08-16 Lipid panel (procedure) [facility] 00:00:00 [code = 71651890] Medical Ce nter Future Scheduled 2025-08-16 Lipid panel (procedure) [facility] 00:00:00 [code = 86486244] Medical Ce nter Future Scheduled 2023-06-[address] [facility]00 [facility] (procedure[facility] [code = 23287837] Future Scheduled 2023-06-[address] [facility] 00:00:00 [facility] (procedure) [facility] [code = 39018432] Future Scheduled 2023-06-[address] [facility] 00:00:00 [facility] (procedure) [facility] [code = 20651096] Future Scheduled 2023-03-31 INFLUENZA VACCINE (Season [facility] [...] measurement (procedure) [facility] [code = 43652316] Future Scheduled 2023-03-[address] [facility] 00:00:00 [facility] (procedure) [facility] [code = 86346186] Future Scheduled 2023-03-[address] [facility] 00:00:00 measurement (procedure) [facility] [code = 93706484] Future Scheduled 2023-03-[address] [facility] 00:00:00 measurement (procedure) [facility] [code = 75755760] Future Scheduled 2023-03-[address] [facility] 00:00:00 measurement (procedure) [facility] [code = 05086661] Future Scheduled 2023-03-[address] [facility] 00:00:00 measurement (procedure) [facility] [code = 84313680] Future Scheduled 2023-03-[address] [facility] 00:00:00 measurement (procedure) [facility] [code = 03184807] Future Scheduled 2023-03-[address] [facility] 00:00:00 measurement (procedure) [facility] [code = 88211322] Future Scheduled 2023-03-[address] [facility] 00:00:00 measurement (procedure) [facility] [code = 98922320] Future Scheduled 2023-03-[address] [facility] 00:00:00 measurement (procedure) [facility] [code = 24221257] Future Scheduled 2023-03-[address] [facility] 00:00:00 measurement (procedure) [facility] [code = 23625962] Future Scheduled 2023-03-[address] [facility] 00:00:00 measurement (procedure) [facility] [code = 00580615] Future Scheduled 2023-03-[address] [facility] 00:00:00 measurement (procedure) [facility] [code = 73955646] Future Scheduled 2023-03-[address] [facility] 00:00:00 measurement (procedure) [facility] [code = 49402856] Future Scheduled 2023-03-[address] [facility] 00:00:00 measurement (procedure) [facility] [code = 65497150] Future Scheduled 2023-03-[address] [facility] 00:00:00 measurement (procedure) [facility] [code = 82943110] Future Scheduled 2023-03-[address] [facility] 00:00:00 measurement (procedure) [facility] [code = 57283218] Future Scheduled 2023-03-[address] [facility] 00:00:00 measurement (procedure) [facility] [code = 27446983] Future Scheduled 2023-03-[address] [facility] 00:00:00 measurement (procedure) [facility] [code = 00154549] Future Scheduled 2023-03-[address] [facility] 00:00:00 measurement (procedure) [facility] [code = 69423268] Future Scheduled 2023-03-[address] [facility] 00:00:00 measurement (procedure) [facility] [code = 57295665] Future Scheduled 2023-03-[address] [facility] 00:00:00 measurement (procedure) [facility] [code = 00163864] Future Scheduled 2023-03-[address] [facility] 00:00:00 measurement (procedure) [facility] [code = 16283210] Future Scheduled 2022-07-[address] [...] measurement (procedure) [facility] [code = 89642618] Future Scheduled 2018-04-[address] [facility] 00:00:00 measurement (procedure) [facility] [code = 35411794] Future Scheduled 2018-04-[address] [facility] 00:00:00 measurement (procedure) [facility] [code = 48833640] Future Scheduled 2018-04-[address] [facility] 00:00:00 measurement (procedure) [facility] [code = 62778940] Future Scheduled 2018-04-[address] [facility] 00:00:00 measurement (procedure) [facility] [code = 21387832] Future Scheduled 2018-04-[address] [facility] 00[facility]00:00 measurement (procedure) [facility] [code = 05540310] Future Scheduled 2018-04-[address] [facility] 00:00:00 measurement (procedure) [facility] [code = 45425663] Future Scheduled 2018-04-[address] [facility] 00:00:00 measurement (procedure) [facility] [code = 92083558] Future Scheduled 2017-10-30 MEDICARE ANNUAL WELLNESS [facility]:00 2) [code = SHINGLES [facility] VACCINES (1 of 2)] Future Scheduled 2016 SHINGLES VACCINES ([address] [facility] 00:00:00 2) [code = SHINGLES [facility] VACCINES (1 of 2)] Future Scheduled 2016 SHINGLES VACCINES ([address] [facility] 00:00:00 2) [code = SHINGLES [facility] VACCINES (1 of 2)] Future Scheduled 2016 SHINGLES VACCINES ([address] [facility] 00:00:00 2) [code [facility] (1 of 2)] Future Scheduled 2001 Lipid panel (procedure) [facility] 00:00:00 [code = [id number]] Medical Ce nter Future Scheduled 2001 Lipid panel (procedure) [facility] 00:00:00 [code = [id number]] Medical Ce nter Future Scheduled 2001 Lipid panel (procedure) [facility] 00:00:00 [code = [id number]] Medical Ce nter Future Scheduled 2001 Lipid panel (procedure) [facility] 00:00:00 [code = [id number]] Medical Ce nter Future Scheduled 2001 Lipid panel (procedure) [facility] 00:00:00 [code = 25756364] Medical Ce nter Future Scheduled 2001 Lipid panel (procedure) [facility] 00:00:00 [code = 27343844] Medical Ce nter Future Scheduled 2001 Lipid panel (procedure) [facility] 00:00:00 [code = 76616972] Medical Ce nter Future Scheduled 2001 Lipid panel (procedure) [facility] 00:00:00 [code = 76300581] Medical Ce nter Future Scheduled 1985 DTAP/TDAP/TD [...] screening [facility] (procedure[facility] [code = 170137995] Future Scheduled [address] [facility] virus screening [facility] (procedure) [code = 147315162] Future Scheduled [address] Human [facility] 00[facility] virus screening [facility] (procedure) [code = 786239388] Future Scheduled [address] Human [facility] 00:[facility] virus screening [facility] (procedure) [code = 992904901] Future Scheduled [address] [facility] virus screening [facility] (procedure) [code = 568604156] Future Scheduled [address] [facility] 00:[facility] virus screening [facility] (procedure) [code = 424869401] Future Scheduled [address] [facility] virus screening [facility] (procedure) [code = 625671932] Future Scheduled [address] [facility] 00:[facility] virus screening [facility] (procedure) [code = 785781733] Future Scheduled [address] [facility] 00:[facility] virus screening [facility] (procedure) [code = 037586002] Future Scheduled [address] [facility] 00:[facility] virus screening [facility] (procedure) [code = 861042740] Future Scheduled [address] [facility] 00:[facility]:00 virus screening [facility] (procedure) [code = 443731776] Future Scheduled [address] [facility] 00:[facility] virus screening [facility] (procedure) [code = 540069577] Future Scheduled [address] [facility] 00:[facility] virus screening [facility] (procedure) [code = 624358225] Future Scheduled [address] [facility] 00:[facility]:00 virus screening [facility] (procedure) [code = 350061988] Future Scheduled [address] [facility] 00:00:00 virus screening [facility] (procedure) [code = 700937753] Future Scheduled [address] [facility] 00:[facility]:00 virus screening [facility] (procedure) [code = 934917568] Future Scheduled [address] [facility] 00:00:00 virus screening [facility] (procedure) [code = 325473958] Future Scheduled [address] (regime/therapy) [code = [facility] [id number]] Future Scheduled 1976 Urine screening for [facility] 00:00:00 protein (procedure) [code [facility] = 582602753] Future Scheduled 1976 DIABETIC EYE EXAM [code = [facility] 00:00:00 DIABETIC EYE EXAM] Medical C enter Future Scheduled 1976 Diabetic foot examination [facility] 00:00:00 (regime/therapy) [code = Med ical Center [id number]] Future Scheduled 1976 Urine screening for [facility] 00:00[facility]00 [facility] (procedure) [facility] Future Scheduled 1976 DIABETIC EYE EXAM [code = [facility] 00:00:00 DIABETIC EYE EXAM] Medical C enter Future Scheduled 1976 Diabetic foot examination [facility] 00:00:00 (regime/therapy) [code = [facility] 173210136] Future Scheduled 1976 Urine screening for [facility] 00:00:00 protein (procedure) [code [facility] = 911439607] Future Scheduled 1976 DIABETIC EYE EXAM [code = [facility] 00:00:00 DIABETIC EYE EXAM] Medical C enter Future Scheduled 1976 Diabetic foot examination [facility] 00:00:00 (regime/therapy) [code = [facility] [id number]] Future Scheduled 1976 Urine screening for [facility] 00:00:00 protein (procedure) [code [facility] = 537870415] Future Scheduled 1976 DIABETIC EYE EXAM [code = [facility] 00:00:00 DIABETIC EYE EXAM] Medical C enter Future Scheduled 1976 Diabetic foot examination [facility] 00:00:00 (regime/therapy) [code = [facility] 058571359] Future Scheduled 1976 Urine screening for [facility] 00:00:00 protein (procedure) [code [facility] = 500882859] Future Scheduled 1976 DIABETIC EYE EXAM [code = [facility] 00:00:00 DIABETIC EYE EXAM] Medical C enter Future Scheduled 1976 Diabetic foot examination [facility] 00:00:00 (regime/therapy) [code = [facility] 151402984] Future Scheduled 1976 Urine screening for [facility] 00:00:00 protein (procedure) [code [facility] = 217053272] Future Scheduled 1976 DIABETIC EYE EXAM [code = [facility] 00:00:00 DIABETIC EYE EXAM] Medical C enter Future Scheduled 1976 Diabetic foot examination [facility] 00:00:00 (regime/therapy) [code = [facility] 939820247] Future Scheduled 1976 Urine screening for [facility] 00:00:00 protein (procedure) [code [facility] = 970318005] Future Scheduled 1976 DIABETIC EYE EXAM [code = [facility] 00:00:00 DIABETIC EYE EXAM] Medical C enter Future Scheduled 1976 Diabetic foot examination [facility] 00:00:00 (regime/therapy) [code = [facility] 317959785] Future Scheduled 1976 Urine screening for [facility] 00:00:00 protein (procedure) [code [facility] = 634859768] Future Scheduled 1976 DIABETIC EYE EXAM [code = [facility] 00:00:00 DIABETIC EYE EXAM] Medical C enter Future Scheduled 1976 Diabetic foot examination [facility] 00:00:00 (regime/therapy) [code = [facility] 615491024] Future Scheduled 1976 Urine screening for [facility] 00:00:00 protein (procedure) [code [facility] = 787119803] Future Scheduled 1976 DIABETIC EYE EXAM [code = [facility] 00:00:00 DIABETIC EYE EXAM] Medical C enter Future Scheduled 1976 Diabetic foot examination [facility] 00:00:00 (regime/therapy) [code = [facility] 763630538] Future Scheduled 1976 Urine screening for [facility] 00:00:00 protein (procedure) [code [facility] = 425796098] Future Scheduled 1976 DIABETIC EYE EXAM [code = [facility] 00:00:00 DIABETIC EYE EXAM] Medical C enter Future Scheduled 1976 Diabetic foot examination [facility] 00:00:00 (regime/therapy) [code = [facility] 149312863] Future Scheduled 1976 Urine screening for [facility] 00:00:00 protein (procedure) [code [facility] = 096485543] Future Scheduled 1976 DIABETIC EYE EXAM [code = [facility] 00:00:00 DIABETIC EYE EXAM] Medical C enter Future Scheduled 1976 Diabetic foot examination [facility] 00:00:00 (regime/therapy) [code = [facility] 499523182] Future Scheduled 1976 Urine screening for [facility] 00:00:00 protein (procedure) [code Me dical Center = 905988996] Future Scheduled 1976 DIABETIC EYE EXAM [code = [facility] 00:00:00 DIABETIC EYE EXAM] Medical C enter Future Scheduled 1976 Diabetic foot examination [facility] 00:00:00 (regime/therapy) [code = [facility] 915971965] Future Scheduled 1976 Urine screening for [facility] 00:00:00 protein (procedure) [code [facility] = 454822341] Future Scheduled 1976 DIABETIC EYE EXAM [code = [facility] 00:00:00 DIABETIC EYE EXAM] Medical C enter Future Scheduled 1976 DIABETIC EYE EXAM [code = [facility] 00:00:00 DIABETIC EYE EXAM] Medical C enter Future Scheduled 1976 Diabetic foot examination [facility] 00:00:00 (regime/therapy) [code = [facility] 987805047] Future Scheduled 1976 Urine screening for [facility] 00:00:00 protein (procedure) [code [facility] = 956184365] Future Scheduled 1976 Diabetic foot examination [facility] 00:00:00 (regime/therapy) [code = [facility] 596769352] Future Scheduled 1976 Urine screening for [facility] 00:00:00 protein (procedure) [code [facility] = 834795161] Future Scheduled 1976 DIABETIC EYE EXAM [code = [facility] 00:00:00 DIABETIC EYE EXAM] Medical C enter Future Scheduled 1976 Diabetic foot examination [facility] 00:00:00 (regime/therapy) [code = [facility] 306584173] Future Scheduled 1976 Urine screening for [facility] 00:00:00 protein (procedure) [facility] 352264827] Future Scheduled 1976 DIABETIC EYE EXAM [code = [facility] 00:00:00 DIABETIC EYE EXAM] Medical C enter Future Scheduled 1976 Diabetic foot examination [facility] 00:00:00 (regime/therapy) [code = [facility] 342984528] Future Scheduled 1976 Urine screening for [facility] 00:00:00 protein (procedure) [code [facility] = 675921039] Future Scheduled 1976 DIABETIC EYE EXAM [code = [facility] 00:00:00 DIABETIC EYE EXAM] Medical C enter Future Scheduled 1976 Diabetic foot examination [facility] 00:00:00 (regime/therapy) [code = [facility] 471076517] Future Scheduled 1976 Urine screening for [facility] 00:00:00 protein (procedure) [code [facility] = 435029975] Future Scheduled 1976 DIABETIC EYE EXAM [code = [facility] 00:00:00 DIABETIC EYE EXAM] Medical C enter Future Scheduled 1976 Diabetic foot examination [facility] 00:00:00 (regime/therapy) [code = [facility] 668317813] Future Scheduled 1976 Urine screening for [facility] 00:00:00 protein (procedure) [code [facility] = 577173003] Future Scheduled 1976 DIABETIC EYE EXAM [code = [facility] 00:00:00 DIABETIC EYE EXAM] Medical C enter Future Scheduled 1976 Diabetic foot examination [facility] 00:00:00 (regime/therapy) [code = [facility] 185843255] Future Scheduled 1976 Urine screening for [facility] 00:00:00 protein (procedure) [code [facility] = 073230666] Future Scheduled 1976 DIABETIC EYE EXAM [code = [facility] 00:00:00 DIABETIC EYE EXAM] Medical C enter Future Scheduled 1976 Diabetic foot examination [facility] 00:00:00 (regime/therapy) [code = [facility] 518024965] Future Scheduled 1976 Urine screening for [facility] 00:00:00 protein (procedure) [code [facility] = 655225417] Future Scheduled 1976 DIABETIC EYE EXAM [code = [facility] 00:00:00 DIABETIC EYE EXAM] Medical C enter Future Scheduled 1976 Diabetic foot examination [facility] 00:00:00 (regime/therapy) [code = [facility] 706709948] Future Scheduled 1976 Urine screening for [facility] 00:00:00 protein (procedure) [code [facility] = 678284502] Future Scheduled 1976 DIABETIC EYE EXAM [code = [facility] 00:00:00 DIABETIC EYE EXAM] Medical C enter Future Scheduled 1976 Diabetic foot examination [facility] 00:00:00 (regime/therapy) [code = [facility] 426377772] Future Scheduled 1976 Urine screening for [facility] 00:00:00 protein (procedure) [code [facility] = 003003403] Future Scheduled 1976 DIABETIC EYE EXAM [code = [facility] 00:00:00 DIABETIC EYE EXAM] Medical C enter Future Scheduled 1976 Diabetic foot examination [facility] 00:00:00 (regime/therapy) [code = [facility] 235732266] Future Scheduled 1976 Urine screening for [facility] 00:00:00 protein (procedure) [code [facility] = 070020892] Future Scheduled 1976 DIABETIC EYE EXAM [code = [facility] 00:00:00 DIABETIC EYE EXAM] Medical C enter Future Scheduled 1976 Diabetic foot examination [facility] 00:00:00 (regime/therapy) [code = [facility] 412426690] Future Scheduled 1976 Urine screening for [facility] 00:00:00 protein (procedure) [code [facility] = 330268420] Future Scheduled 1976 DIABETIC EYE EXAM [code = [facility] 00:00:00 DIABETIC EYE EXAM] Medical C enter Future Scheduled 1976 Diabetic foot examination [facility] 00:00:00 (regime/therapy) [code = [facility] 316355274] Future Scheduled 1976 Urine screening for [facility] 00:00:00 protein (procedure) [code [facility] = 993066663] Future Scheduled 1976 DIABETIC EYE EXAM [code = [facility] 00:00:00 DIABETIC EYE EXAM] Medical C enter Future Scheduled 1976 Diabetic foot examination [facility] 00:00:00 (regime/therapy) [code = [facility] 395839233] Future Scheduled 1976 Urine screening for [facility] 00:00:00 protein (procedure) [code [facility] = 136882876] Future Scheduled 1976 DIABETIC EYE EXAM [code = [facility] 00:00:00 DIABETIC EYE EXAM] Medical C enter Future Scheduled 1976 Diabetic foot examination [facility] 00:00:00 (regime/therapy) [code = [facility] 931101438] Future Scheduled 1976 Urine screening for [facility] 00:00:00 protein (procedure) [code [facility] = 730515088] Future Scheduled 1976 DIABETIC EYE EXAM [code = [facility] 00:00:00 DIABETIC EYE EXAM] Medical C enter Future Scheduled 1976 Diabetic foot examination [facility] 00:00:00 (regime/therapy) [code = [facility] 797473851] Future Scheduled 1976 Urine screening for [facility] 00:00:00 protein (procedure) [code [facility] = 239725267] Future Scheduled 1976 DIABETIC EYE EXAM [code = [facility] 00:00:00 DIABETIC EYE EXAM] Medical C enter Future Scheduled 1976 Diabetic foot examination [facility] 00:00:00 (regime/therapy) [code = [facility] 276512852] Future Scheduled 1976 Urine screening for [facility] 00:00:00 protein (procedure) [code [facility] = 167247650] Future Scheduled 1976 DIABETIC EYE EXAM [code = [facility] 00:00:00 DIABETIC EYE EXAM] Medical C enter Future Scheduled 1976 Diabetic foot examination [facility] 00:00:00 (regime/therapy) [code = [facility] 945449370] Future Scheduled 1976 Urine screening for [facility] 00:00:00 protein (procedure) [code [facility] = 436061240] Future Scheduled 1976 DIABETIC EYE EXAM [code = [facility] 00:00:00 DIABETIC EYE EXAM] Medical C enter Future Scheduled 1976 Diabetic foot examination [facility] 00:00:00 (regime/therapy) [code = [facility] 748111379] Future Scheduled 1976 Urine screening for [facility] 00:00:00 protein (procedure) [code [facility] = 652346890] Future Scheduled 1976 DIABETIC EYE EXAM [code = [facility] 00:00:00 DIABETIC EYE EXAM] Medical C enter Future Scheduled 1976 Diabetic foot examination [facility] 00:00:00 (regime/therapy) [code = [facility] 356837660] Future Scheduled 1976 Urine screening for [facility] 00:00:00 protein (procedure) [code [facility] = 114029847] Future Scheduled 1976 DIABETIC EYE EXAM [code = [facility] 00:00:00 DIABETIC EYE EXAM] Medical C enter Future Scheduled 1976 Diabetic foot examination [facility] 00:00:00 (regime/therapy) [code = [facility] 010827438] Future Scheduled 1976 Urine screening for [facility] 00:00:00 protein (procedure) [code [facility] = 207299196] Future Scheduled 1967-05-19 COVID-19 VACCINE (#1) [facility] [code = CT Colonography [facility] (combo)] Future Scheduled 1966 Screening for malignant [facility] 00:00:00 neoplasm of colon Medical Ce nter (procedure) [code = 553632778] Future Scheduled 1966 Screening for malignant [facility] 00:00:00 neoplasm of colon Medical Ce nter (procedure) [code = 130183639] Future Scheduled 1966 Screening for malignant [facility] 00:00:00 neoplasm of colon Medical Ce nter (procedure) [code = 839719562] Future Scheduled 1966 Screening for malignant [facility] 00:00:00 neoplasm of colon Medical Ce nter (procedure) [code = 945200840] Future Scheduled 1966 Sigmoidoscopy [[facility]] Medical Cent[facility] Future Scheduled 1966 CT Colonography (combo) [facility] 00:00:00 [code = CT Colonography [facility] (combo)] Future Scheduled 1966 Screening for malignant [facility] 00:00:00 neoplasm of colon Medical Ce nter (procedure) [code = 116293739] Future Scheduled 1966 Screening for malignant [facility] 00:00:00 neoplasm of colon Medical Ce nter (procedure) [code = 597168737] Future Scheduled 1966 Screening for malignant [facility] 00:00:00 neoplasm of colon Medical Ce nter (procedure) [code = 008873864] Future Scheduled 1966 Screening for malignant [facility] 00:00:00 neoplasm of colon Medical Ce nter (procedure) [code = 168946116] Future Scheduled 1966 Sigmoidoscopy [[facility]] Medical Cent[facility] r Future Scheduled 1966 CT Colonography (combo) [facility] 00:00:00 [code = CT Colonography [facility] (combo)] Future Scheduled 1966 Screening for malignant [facility] 00:00:00 neoplasm of colon Medical Ce nter (procedure) [code = 467334037] Future Scheduled 1966 Screening for malignant [facility] 00:00:00 neoplasm of colon Medical Ce nter (procedure) [code = 021476683] Future Scheduled 1966 Screening for malignant [facility] 00:00:00 neoplasm of colon Medical Ce nter (procedure) [code = 391834804] Future Scheduled 1966 Screening for malignant [facility] 00:00:00 neoplasm of colon Medical Ce nter (procedure) [code = 619852638] Future Scheduled 1966 Sigmoidoscopy [code [facility] S[facility]oidoscopy] Medical Cent[facility] r Future Scheduled 1966 CT Colonography (combo) [facility] 00:00:00 [code = CT Colonography [facility] (combo)] Future Scheduled 1966 Screening for malignant [facility] 00:00:00 neoplasm of colon Medical Ce nter (procedure) [code = 365253418] Future Scheduled 1966 Screening for malignant [facility] 00:00:00 neoplasm of colon Medical Ce nter (procedure) [code = 317561691] Future Scheduled 1966 Screening for malignant [facility] 00:00:00 neoplasm of colon Medical Ce nter (procedure) [code = 318197214] Future Scheduled 1966 Screening for malignant [facility] 00:00:00 neoplasm of colon Medical Ce nter (procedure) [code = 625785683] Future Scheduled 1966 Sigmoidoscopy [code [facility] S[facility]oidoscopy] Medical Cent[facility] r Future Scheduled 1966 CT Colonography (combo) [facility] 00:00:00 [code = CT Colonography [facility] (combo)] Future Scheduled 1966 Screening for malignant [facility] 00:00:00 neoplasm of colon Medical Ce nter (procedure) [code = 302661906] Future Scheduled 1966 Screening for malignant [facility] 00:00:00 neoplasm of colon Medical Ce nter (procedure) [code = 896062107] Future Scheduled 1966 Screening for malignant [facility] 00:00:00 neoplasm of colon Medical Ce nter (procedure) [code = 203387958] Future Scheduled 1966 Screening for malignant [facility] 00:00:00 neoplasm of colon Medical Ce nter (procedure) [code = 921792273] Future Scheduled 1966 Sigmoidoscopy [facility]] Medical Cent[facility] r Future Scheduled 1966 CT Colonography (combo) [facility] 00:00:00 [code = CT Colonography [facility] (combo)] Future Scheduled 1966 Screening for malignant [facility] 00:00:00 neoplasm of colon Medical Ce nter (procedure) [code = 369934811] Future Scheduled 1966 Screening for malignant [facility] 00:00:00 neoplasm of colon Medical Ce nter (procedure) [code = 269407162] Future Scheduled 1966 Screening for malignant [facility] 00:00:00 neoplasm of colon Medical Ce nter (procedure) [code = 185733298] Future Scheduled 1966 Screening for malignant [facility] 00:00:00 neoplasm of colon Medical Ce nter (procedure) [code = 562807755] Future Scheduled 1966 Sigmoidoscopy [facility]] Medical Cent[facility] Future Scheduled 1966 CT Colonography (combo) [facility] 00:00:00 [code = CT [facility] ([facility])] Future Scheduled 1966 Screening for malignant [facility] 00:00:00 neoplasm of colon Medical Ce nter (procedure) [code = 273695481] Future Scheduled 1966 Screening for malignant [facility] 00:00:00 neoplasm of colon Medical Ce nter (procedure) [code = 470204641] Future Scheduled 1966 Screening for malignant [facility] 00:00:00 neoplasm of colon Medical Ce nter (procedure) [code = 889579420] Future Scheduled 1966 Screening for malignant [facility] 00:00:00 neoplasm of colon Medical Ce nter (procedure) [code = 741526567] Future Scheduled 1966 Sigmoidoscopy [code [facility]oscopy] Medical Cent[facility] Future Scheduled 1966 CT Colonography (combo) [facility] 00:00:00 [code = CT Colonography [facility] (combo)] Future Scheduled 1966 Screening for malignant [facility] 00:00:00 neoplasm of colon Medical Ce nter (procedure) [code = 509821211] Future Scheduled 1966 Screening for malignant [facility] 00:00:00 neoplasm of colon Medical Ce nter (procedure) [code = 779779117] Future Scheduled 1966 Screening for malignant [facility] 00:00:00 neoplasm of colon Medical Ce nter (procedure) [code = 851134327] Future Scheduled 1966 Screening for malignant [facility] 00:00:00 neoplasm of colon Medical Ce nter (procedure) [code = 492453211] Future Scheduled 1966 Sigmoidoscopy [code [facility]oscopy] Medical Cent[facility] r Future Scheduled 1966 CT Colonography (combo) [facility] 00:00:00 [code = CT [facility] ([facility])] Future Scheduled 1966 Screening for malignant [facility] 00:00:00 neoplasm of colon Medical Ce nter (procedure) [code = 493801569] Future Scheduled 1966 Screening for malignant [facility] 00:00:00 neoplasm of colon Medical Ce nter (procedure) [code = 436438194] Future Scheduled 1966 Screening for malignant [facility] 00:00:00 neoplasm of colon Medical Ce nter (procedure) [code = 161438843] Future Scheduled 1966 Screening for malignant [facility] 00:00:00 neoplasm of colon Medical Ce nter (procedure) [code = 020554055] Future Scheduled 1966 Sigmoidoscopy [code [facility]] [facility] [place] Future Scheduled 1966 CT Colonography (combo) [facility] 00:00:00 [code = CT Colonography [facility] (combo)] Future Scheduled 1966 Screening for malignant [facility] 00:00:00 neoplasm of colon Medical Ce nter (procedure) [code = 992938230] Future Scheduled 1966 Screening for malignant [facility] 00:00:00 neoplasm of colon Medical Ce nter (procedure) [code = 373637674] Future Scheduled 1966 Screening for malignant [facility] 00:00:00 neoplasm of colon Medical Ce nter (procedure) [code = 186254137] Future Scheduled 1966 Screening for malignant [facility] 00:00:00 neoplasm of colon Medical Ce nter (procedure) [code = 169555895] Future Scheduled 1966 Sigmoidoscopy [facility]] [facility] [place] [facility] Future Scheduled [address] Colonography (combo) [facility] 00:00:00 [code = CT [facility] ([facility]bo)] Future Scheduled 1966 Screening for malignant [facility] 00:00:00 neoplasm of colon Medical Ce nter (procedure) [code = 008381095] Future Scheduled 1966 Screening for malignant [facility] 00:00:00 neoplasm of colon Medical Ce [facility]ter (procedure) [code = 145549965] Future Scheduled 1966 Screening for malignant [facility] 00:00:00 neoplasm of colon Medical Ce [facility]ter (procedure) [code = 641069492] Future Scheduled 1966 Screening for malignant [facility] 00:00:00 neoplasm of colon Medical Ce [facility]ter (procedure) [code = 925277712] Future Scheduled 1966 Sigmoidoscopy [code = [facility]] [facility] Cent[facility] Future Scheduled 1966 CT Colonography (combo) [facility] 00:00:00 [code = CT [facility] ([facility])] Future Scheduled 1966 Screening for malignant [facility] 00:00:00 neoplasm of colon Medical Ce [facility]ter (procedure) [code = 542488622] Future Scheduled 1966 Screening for malignant [facility] 00:00:00 neoplasm of colon Medical Ce [facility]ter (procedure) [code = 091473839] Future Scheduled 1966 Screening for malignant [facility] 00:00:00 neoplasm of colon Medical Ce [facility]ter (procedure) [code = 105303975] Future Scheduled 1966 Screening for malignant [facility] 00:00:00 neoplasm of colon Medical Ce [facility]ter (procedure) [code = 037927205] Future Scheduled 1966 Sigmoidoscopy [code = [facility] S[facility]oidoscopy] Medical Cent[facility] Future Scheduled 1966 CT Colonography (combo) [facility] 00:00:00 [code = CT [facility])] Future Scheduled 1966 CT Colonography (combo) [facility] 00:00:00 [code = CT [facility] ([facility])] Future Scheduled 1966 Screening for malignant [facility] 00:00:00 neoplasm of colon Medical Ce [facility]ter (procedure) [code = 421688524] Future Scheduled 1966 Screening for malignant [facility] 00:00:00 neoplasm of colon Medical Ce [facility]ter (procedure) [code = 017027196] Future Scheduled 1966 Screening for malignant [facility] 00:00:00 neoplasm of colon Medical Ce [facility]ter (procedure) [code = 496746153] Future Scheduled 1966 Screening for malignant [facility] 00:00:00 neoplasm of colon Medical Ce [facility]ter (procedure) [code = 342019752] Future Scheduled 1966 Sigmoidoscopy [code = [facility] S[facility]oidoscopy] Medical Cente r Future Scheduled 1966 Screening for malignant [facility] 00:00:00 neoplasm of colon Medical Ce [facility]ter (procedure) [code = 227083929] Future Scheduled 1966 Screening for malignant [facility] 00:00:00 neoplasm of colon Medical Ce [facility]ter (procedure) [code = 818764045] Future Scheduled 1966 Screening for malignant [facility] 00:00:00 neoplasm of colon [facility] Ce [facility] (procedure) [code = 195485495] Future Scheduled 1966 Screening for malignant [facility] 00:00:00 neoplasm of colon Medical Ce [facility]ter (procedure) [code = 167736391] Future Scheduled 1966 Sigmoidoscopy [code = [facility] S[facility]oidoscopy] Medical Cente r Future Scheduled 1966 CT Colonography (combo) [facility] 00:00:00 [code = CT Colonography [facility] (combo)] Future Scheduled 1966 Screening for malignant [facility] 00:00:00 neoplasm of colon Medical Ce [facility]ter (procedure) [code = 504944081] Future Scheduled 1966 Screening for malignant [facility] 00:00:00 neoplasm of colon Medical Ce [facility]ter (procedure) [code = 455392037] Future Scheduled 1966 Screening for malignant [facility] 00:00:00 neoplasm of colon Medical Ce [facility]ter (procedure) [code = 078649565] Future Scheduled 1966 Screening for malignant [facility] 00:00:00 neoplasm of colon Medical Ce [facility]ter (procedure) [code = 936042538] Future Scheduled 1966 Sigmoidoscopy [code = [facility] S[facility]oidoscopy] Medical Enrikee r Future Scheduled 1966 CT Colonography (combo) [facility] 00:00:00 [code = CT Colonography [facility] ([facility])] Future Scheduled 1966 Screening for malignant [facility] 00:00:00 neoplasm of colon Medical Ce [facility]ter (procedure) [code = 747014604] Future Scheduled 1966 Screening for malignant [facility] 00:00:00 neoplasm of colon Medical Ce [facility]ter (procedure) [code = 272204249] Future Scheduled 1966 Screening for malignant [facility] 00:00:00 neoplasm of colon Medical Ce [facility]ter (procedure) [code = 050667876] Future Scheduled 1966 Screening for malignant [facility] 00:00:00 neoplasm of colon Medical Ce [facility]ter (procedure) [code = 498767721] Future Scheduled 1966 Sigmoidoscopy [code = [facility] Sigmoidoscopy] Medical Enrikee r Future Scheduled 1966 CT Colonography (combo) [facility] 00:00:00 [code = CT Colonography [facility] (combo)] Future Scheduled 1966 Screening for malignant [facility] 00:00:00 neoplasm of colon Medical Ce nter (procedure) [code = 483516615] Future Scheduled 1966 Screening for malignant [facility] 00:00:00 neoplasm of colon Medical Ce [facility]ter (procedure) [code = 321793033] Future Scheduled 1966 Screening for malignant [facility] 00:00:00 neoplasm of colon Medical Ce [facility]ter (procedure) [code = 929985859] Future Scheduled 1966 Screening for malignant [facility] 00:00:00 neoplasm of colon Medical Ce nter (procedure) [code = 760386968] Future Scheduled 1966 Sigmoidoscopy [code = [facility] Sigmoidoscopy] Medical Cente r Future Scheduled 1966 CT Colonography (combo) [facility] 00:00:00 [code = CT Colonography [facility] (combo)] Future Scheduled 1966 Screening for malignant [facility] 00:00:00 neoplasm of colon Medical Ce nter (procedure) [code = 441413296] Future Scheduled 1966 Screening for malignant [facility] 00:00:00 neoplasm of colon Medical Ce [facility]ter (procedure) [code = 912630045] Future Scheduled 1966 Screening for malignant [facility] 00:00:00 neoplasm of colon Medical Ce [facility]ter (procedure) [code = 272016907] Future Scheduled 1966 Screening for malignant [facility] 00:00:00 neoplasm of colon Medical Ce nter (procedure) [code = 191685658] Future Scheduled 1966 Sigmoidoscopy [code = [facility] Sigmoidoscopy] Medical Cente r Future Scheduled 1966 CT Colonography (combo) [facility] 00:00:00 [code = CT Colonography [facility] (combo)] Future Scheduled 1966 Screening for malignant [facility] 00:00:00 neoplasm of colon Medical Ce nter (procedure) [code = 687956622] Future Scheduled 1966 Screening for malignant [facility] 00:00:00 neoplasm of colon Medical Ce nter (procedure) [code = 855647962] Future Scheduled 1966 Screening for malignant [facility] 00:00:00 neoplasm of colon Medical Ce nter (procedure) [code = 359166975] Future Scheduled 1966 Screening for malignant [facility] 00:00:00 neoplasm of colon Medical Ce nter (procedure) [code = 298543571] Future Scheduled 1966 Sigmoidoscopy [code = [facility] 00:[facility] Sigmoidoscopy] Medical Cente r Future Scheduled 1966 CT Colonography (combo) [facility] 00:00:00 [code = CT Colonography [facility] (combo)] Future Scheduled 1966 Screening for malignant [facility] 00:00:00 neoplasm of colon Medical Ce [facility]ter (procedure) [code = 425839897] Future Scheduled 1966 Screening for malignant [facility] 00:00:00 neoplasm of colon Medical Ce nter (procedure) [code = 032884720] Future Scheduled 1966 Screening for malignant [facility] 00:00:00 neoplasm of colon Medical Ce nter (procedure) [code = 519139586] Future Scheduled 1966 Screening for malignant [facility] 00:00:00 neoplasm of colon Medical Ce nter (procedure) [code = 516132343] Future Scheduled 1966 Sigmoidoscopy [code = [facility] 00:[facility] Sigmoidoscopy] Medical Cente r Future Scheduled 1966 CT Colonography (combo) [facility] 00:00:00 [code = CT [facility] ([facility])] Future Scheduled 1966 Screening for malignant [facility] 00:00:00 neoplasm of colon Medical Ce nter (procedure) [code = 311055847] Future Scheduled 1966 Screening for malignant [facility] 00:00:00 neoplasm of colon Medical Ce nter (procedure) [code = 419117895] Future Scheduled 1966 Screening for malignant [facility] 00:00:00 neoplasm of colon Medical Ce nter (procedure) [code = 355388072] Future Scheduled 1966 Screening for malignant [facility] 00:00:00 neoplasm of colon Medical Ce nter (procedure) [code = 567886191] Future Scheduled 1966 Sigmoidoscopy [code = [facility] 00:[facility] Sigmoidoscopy] Medical Cente r Future Scheduled 1966 CT Colonography (combo) [facility] 00:00:00 [code = CT [facility] ([facility])] Future Scheduled 1966 Screening for malignant [facility] 00:00:00 neoplasm of colon Medical Ce nter (procedure) [code = 468924487] Future Scheduled 1966 Screening for malignant [facility] 00:00:00 neoplasm of colon Medical Ce nter (procedure) [code = 175278869] Future Scheduled 1966 Screening for malignant [facility] 00:00:00 neoplasm of colon Medical Ce nter (procedure) [code = 134637405] Future Scheduled 1966 Screening for malignant [facility] 00:00:00 neoplasm of colon Medical Ce [facility]ter (procedure) [code = 761847195] Future Scheduled 1966 Sigmoidoscopy [code = [facility] 00:[facility] Sigmoidoscopy] Medical Cente r Future Scheduled 1966 CT Colonography (combo) [facility] 00:00:00 [code = CT [facility] ([facility])] Future Scheduled 1966 Screening for malignant [facility] 00:00:00 neoplasm of colon Medical Ce nter (procedure) [code = 331856010] Future Scheduled 1966 Screening for malignant [facility] 00:00:00 neoplasm of colon Medical Ce nter (procedure) [code = 804532138] Future Scheduled 1966 Screening for malignant [facility] 00:00:00 neoplasm of colon Medical Ce nter (procedure) [code = 487954817] Future Scheduled 1966 Screening for malignant [facility] 00:00:00 neoplasm of colon Medical Ce nter (procedure) [code = 093795444] Future Scheduled 1966 Sigmoidoscopy [code = [facility] Sigmoidoscopy] Medical Cente r Future Scheduled 1966 CT Colonography (combo) [facility] 00:00:00 [code = CT Colonography [facility] (combo)] Future Scheduled 1966 Screening for malignant [facility] 00:00:00 neoplasm of colon Medical Ce nter (procedure) [code = 850771643] Future Scheduled 1966 Screening for malignant [facility] 00:00:00 neoplasm of colon Medical Ce nter (procedure) [code = 253783173] Future Scheduled 1966 Screening for malignant [facility] 00:00:00 neoplasm of colon Medical Ce nter (procedure) [code = 021798093] Future Scheduled 1966 Screening for malignant [facility] 00:00:00 neoplasm of colon Medical Ce nter (procedure) [code = 047859575] Future Scheduled 1966 Sigmoidoscopy [code = [facility] S[facility]oidoscopy] Medical Enrikee r Future Scheduled 1966 CT Colonography (combo) [facility] 00:00:00 [code = CT [facility] ([facility])] Future Scheduled 1966 Screening for malignant [facility] 00:00:00 neoplasm of colon Medical Ce nter (procedure) [code = 794445656] Future Scheduled 1966 Screening for malignant [facility] 00:00:00 neoplasm of colon Medical Ce nter (procedure) [code = 668559224] Future Scheduled 1966 Screening for malignant [facility] 00:00:00 neoplasm of colon Medical Ce nter (procedure) [code = 200749285] Future Scheduled 1966 Screening for malignant [facility] 00:00:00 neoplasm of colon Medical Ce nter (procedure) [code = 065014550] Future Scheduled 1966 Sigmoidoscopy [code = [facility] Sigmoidoscopy] Medical Enrikee r Future Scheduled 1966 CT Colonography (combo) [facility] 00:00:00 [code = CT Colonography [facility] (combo)] Future Scheduled 1966 Screening for malignant [facility] 00:00:00 neoplasm of colon Medical Ce nter (procedure) [code = 338497825] Future Scheduled 1966 Screening for malignant [facility] 00:00:00 neoplasm of colon Medical Ce nter (procedure) [code = 390870212] Future Scheduled 1966 Screening for malignant [facility] 00:00:00 neoplasm of colon Medical Ce nter (procedure) [code = 810305084] Future Scheduled 1966 Screening for malignant [facility] 00:00:00 neoplasm of colon Medical Ce nter (procedure) [code = 240860707] Future Scheduled 1966 Sigmoidoscopy [code = [facility] 00:[facility] Sigmoidoscopy] Medical Enrikee r Future Scheduled 1966 CT Colonography (combo) [facility] 00:00:00 [code = CT [facility] ([facility])] Future Scheduled 1966 Screening for malignant [facility] 00:00:00 neoplasm of colon Medical Ce nter (procedure) [code = 794518827] Future Scheduled 1966 Screening for malignant [facility] 00:00:00 neoplasm of colon Medical Ce nter (procedure) [code = 075166020] Future Scheduled 1966 Screening for malignant [facility] 00:00:00 neoplasm of colon Medical Ce nter (procedure) [code = 252702485] Future Scheduled 1966 Screening for malignant [facility] 00:00:00 neoplasm of colon Medical Ce nter (procedure) [code = 464369802] Future Scheduled 1966 Sigmoidoscopy [code = [facility] 00:[facility] Sigmoidoscopy] Medical Cente r Future Scheduled 1966 CT Colonography (combo) [facility] 00:00:00 [code = CT Colonography [facility] (combo)] Future Scheduled 1966 Screening for malignant [facility] 00:00:00 neoplasm of colon Medical Ce nter (procedure) [code = 396098739] Future Scheduled 1966 Screening for malignant [facility] 00:00:00 neoplasm of colon Medical Ce nter (procedure) [code = 611015901] Future Scheduled 1966 Screening for malignant [facility] 00:00:00 neoplasm of colon Medical Ce nter (procedure) [code = 618996773] Future Scheduled 1966 Screening for malignant [facility] 00:00:00 neoplasm of colon Medical Ce nter (procedure) [code = 328090175] Future Scheduled 1966 Sigmoidoscopy [code = [facility] Sigmoidoscopy] Medical Cente r Future Scheduled 1966 CT Colonography (combo) [facility] 00:00:00 [code = CT Colonography [facility] (combo)] Future Scheduled 1966 Screening for malignant [facility] 00:00:00 neoplasm of colon Medical Ce nter (procedure) [code = 689122766] Future Scheduled 1966 Screening for malignant [facility] 00:00:00 neoplasm of colon Medical Ce nter (procedure) [code = 808446935] Future Scheduled 1966 Screening for malignant [facility] 00:00:00 neoplasm of colon Medical Ce nter (procedure) [code = 631893860] Future Scheduled 1966 Screening for malignant [facility] 00:00:00 neoplasm of colon Medical Ce nter (procedure) [code = 925988703] Future Scheduled 1966 Sigmoidoscopy [code = [facility] S[facility]oidoscopy] Medical Cente r Future Scheduled 1966 CT Colonography (combo) [facility] 00:00:00 [code = CT Colonography [facility] (combo)] Future Scheduled 1966 Screening for malignant [facility] 00:00:00 neoplasm of colon Medical Ce nter (procedure) [code = 450909150] Future Scheduled 1966 Screening for malignant [facility] 00:00:00 neoplasm of colon Medical Ce nter (procedure) [code = 898555962] Future Scheduled 1966 Screening for malignant [facility] 00:00:00 neoplasm of colon Medical Ce nter (procedure) [code = 508158724] Future Scheduled 1966 Screening for malignant [facility] 00:00:00 neoplasm of colon Medical Ce nter (procedure) [code = 764905188] Future Scheduled 1966 Sigmoidoscopy [code = [facility] 00:[facility] S[facility]oidoscopy] Medical Cente r Future Scheduled 1966 CT Colonography (combo) [facility] 00:00:00 [code = CT Colonography [facility] (combo)] Future Scheduled 1966 Screening for malignant [facility] 00:00:00 neoplasm of colon Medical Ce nter (procedure) [code = 810546440] Future Scheduled 1966 Screening for malignant [facility] 00:00:00 neoplasm of colon Medical Ce nter (procedure) [code = 476737737] Future Scheduled 1966 Screening for malignant [facility] 00:00:00 neoplasm of colon Medical Ce nter (procedure) [code = 933677215] Future Scheduled 1966 Screening for malignant [facility] 00:00:00 neoplasm of colon Medical Ce nter (procedure) [code = 432640234] Future Scheduled 1966 Sigmoidoscopy [code = [facility] S[facility]oscopy] Medical Cente r Future Scheduled 1966 CT Colonography (combo) [facility] 00:00:00 [code = CT [facility] ([facility] Future Scheduled 1966 Screening for malignant [facility] 00:00:00 neoplasm of colon Medical Ce nter (procedure) [code = 046932127] Future Scheduled 1966 Screening for malignant [facility] 00:00:00 neoplasm of colon Medical Ce nter (procedure) [code = 308108094] Future Scheduled 1966 Screening for malignant [facility] 00:00:00 neoplasm of colon Medical Ce nter (procedure) [code = 467601116] Future Scheduled 1966 Screening for malignant [facility] 00:00:00 neoplasm of colon Medical Ce nter (procedure) [code = 579571399] Future Scheduled 1966 Sigmoidoscopy [code = [facility] S[facility]oidoscopy] Medical Cente r Future Scheduled 1966 CT Colonography (combo) [facility] 00:00:00 [code = CT Colonography [facility] (combo)] Future Scheduled 1966 Screening for malignant [facility] 00:00:00 neoplasm of colon Medical Ce nter (procedure) [code = 459426346] Future Scheduled 1966 Screening for malignant [facility] 00:00:00 neoplasm of colon Medical Ce nter (procedure) [code = 248609786] Future Scheduled 1966 Screening for malignant [facility] 00:00:00 neoplasm of colon Medical Ce nter (procedure) [code = 485762076] Future Scheduled 1966 Screening for malignant [facility] 00:00:00 neoplasm of colon Medical Ce nter (procedure) [code = 395830543] Future Scheduled 1966 Sigmoidoscopy [code = [facility] S[facility]oidoscopy] Medical Cente r Future Scheduled 1966 CT Colonography (combo) [facility] 00:00:00 [code = CT Colonography [facility] (combo)] Future Scheduled 1966 Screening for malignant [facility] 00:00:00 neoplasm of colon Medical Ce nter (procedure) [code = 472274816] Future Scheduled 1966 Screening for malignant [facility] 00:00:00 neoplasm of colon Medical Ce nter (procedure) [code = 768847202] Future Scheduled 1966 Screening for malignant [facility] 00:00:00 neoplasm of colon Medical Ce nter (procedure) [code = 851527902] Future Scheduled 1966 Screening for malignant [facility] 00:00:00 neoplasm of colon Medical Ce nter (procedure) [code = 719128825] Future Scheduled 1966 Sigmoidoscopy [facility]code [facility] S[facility]oscopy] Medical Cente r Encounters Start End Encounter Admission Attending Care Care Encounter Source Date/Time Date/Time Type Type Clinicians Facility Department ID 2022-11-09 Outpatient [facility] [id number] [place] 07:33:51 [id number] [facility] 2022-05-02 Outpatient 3 [id number] [facility] 09:08:37 [facility] [place] [facility] 2022-05-01 Outpatient 3 [id number] [facility] REF [id number] [facility] 10:15:36 [facility] [place] 2022-03-10 Outpatient [facility] [id number] [place] 11:35:42 [id number] [facility] 2022-03-07 Outpatient [facility] [id number] [place] 14:31:45 [id number] [facility] 2022-03-07 Inpatient [facility] 14:31:42 NON 2022-01-27 Outpatient ANJALI [facility] [id number] [place] 10:32:12 JUANY [id number] [facility] 2022-01-06 Outpatient [facility] [id number] [place] 08:50:11 [id number] [facility] 2022-01-01 Outpatient [facility] [id number] [place] 12:07:43 [id number] [facility] 2021-12-21 Outpatient [facility] [id number] [place] 12:23:36 [id number] [facility] 2021-05-31 Emergency [facility] [id number] [facility] [id number] [facility] 06:34:26 [facility] 2019-02-26 Inpatient U [facility] [id number] Mem oria 16:12:00 susan Smith l [facility] 2023-05-28 2023-05-28 Outpatient [facility] PRIV 140 [id number] [facility] 00:00:00 00:00:00 d_J [id number] [facility] 2023-05-28 2023-05-28 Outpatient [facility] PRIV 140 [id number] [facility] 00:00:00 00:00:00 d_J [id number] [facility] 2023-05-28 2023-05-28 Outpatient [facility] PRIV 140 [id number] [facility] 00:00:00 00:00:00 d_J [id number] [facility] 2023-05-01 2023-05-01 Outpatient [facility] PR[facility] PRIV 140 [id number] [facility] 00:00:00 00:00:00 d_J [id number] [facility] 2023-05-01 2023-05-01 Outpatient [facility] PR[facility] PRIV 140 [id number] [facility] 00:00:00 00:00:00 d_J [id number] [facility] 2023-05-01 2023-05-01 Outpatient [facility] PRIV 140 [id number] [facility] 00:00:00 00:00:00 d_J [id number] [facility] 2023-05-01 2023-05-01 Outpatient [facility] PR[facility] PRIV 140 [id number] [facility] 00:00:00 00:00:00 d_J [id number] [facility] 2023-05-01 2023-05-01 Outpatient [facility] PR[facility] PRIV 140 [id number] [facility] 00:00:00 00:00:00 d_J [id number] [facility] 2023-05-01 2023-05-01 Outpatient [facility] PR[facility] PRIV 140 [id number] [facility] 00:00:00 00:00:00 d_J [id number] Med[facility] 2023-05-01 2023-05-01 Outpatient [facility] PRIV PRIV 140 [id number] [facility] 00:00:00 00:00:00 d_J [id number] Medica l 2023-05-01 2023-05-01 Outpatient [facility] PR[facility] PRIV 140 [id number] [facility] 00:00:00 00:00:00 d_J [id number] Med[facility] 2023-04-17 2023-04-17 Outpatient [facility] PRIV PRIV 140 [id number] [facility] 00:00:00 00:00:00 d_J [id number] Med[facility] 2023-04-17 2023-04-17 Outpatient [facility] PR[facility] PRIV 140 [id number] [facility] 00:00:00 00:00:00 d_J [id number] [facility] 2023-04-17 2023-04-17 Outpatient [facility] PR[facility] PRIV 140 [id number] [facility] 00:00:00 00:00:00 d_J [id number] Med[facility] 2023-04-17 2023-04-17 Outpatient [facility] PR[facility] PRIV 140 [id number] [facility] 00:00:00 00:00:00 d_J [id number] Medica [facility] 2023-04-17 2023-04-17 Outpatient [facility] PR[facility] PRIV 140 [id number] [facility] 00:00:00 00:00:00 d_J [id number] Medica l 2023-04-17 2023-04-17 Outpatient [facility] PRIV PRIV 140 [id number] [facility] 00:00:00 00:00:00 d_J [id number] [facility] 2023-03-13 2023-03-13 Outpatient [facility] PRIV PRIV 140 [id number] [facility] 00:00:00 00:00:00 d_J [id number] Med[facility] 2023-03-13 2023-03-13 Outpatient [facility] PRIV PRIV 140 [id number] [facility] 00:00:00 00:00:00 d_J [id number] Medica l 2023-03-13 2023-03-13 Outpatient [facility] PRIV PRIV 140 [id number] [facility] 00:00:00 00:00:00 d_J [id number] Medica l 2023-03-13 2023-03-13 Outpatient [facility] PRIV PRIV 140 [id number] [facility] 00:00:00 00:00:00 d_J [id number] Medica l 2023-03-13 2023-03-13 Outpatient [facility] PR[facility] PRIV 140 [id number] [facility] 00:00:00 00:00:00 d_J [id number] Medica l 2023-03-13 2023-03-13 Outpatient [facility] PR[facility] PRIV 140 [id number] [facility] 00:00:00 00:00:00 d_J [id number] Medica l 2023-03-13 2023-03-13 Outpatient [facility] PRIV PRIV 140 [id number] [facility] 00:00:00 00:00:00 d_J [id number] Medica l 2023-03-13 2023-03-13 Outpatient [facility] PRIV PRIV 140 [id number] [facility] 00:00:00 00:00:00 d_J [id number] Medica l 2023-03-13 2023-03-13 Outpatient [facility] PRIV PRIV 140 [id number] [facility] 00:00:00 00:00:00 d_J [id number] Medica l 2023-03-13 2023-03-13 Outpatient [facility] PRIV PRIV 140 [id number] [facility] 00:00:00 00:00:00 d_J [id number] Medica l 2023-03-13 2023-03-13 Outpatient [facility] PRIV PRIV 140 [id number] [facility] 00:00:00 00:00:00 d_J [id number] Medica l 2023-03-13 2023-03-13 Outpatient [facility] PRIV PRIV 140 [id number] [facility] 00:00:00 00:00:00 d_J [id number] Medica l 2023-03-13 2023-03-13 Outpatient [facility] PRIV PRIV 140 [id number] [facility] 00:00:00 00:00:00 d_J [id number] Medica l 2023-03-13 2023-03-13 Outpatient [facility] PRIV PRIV 140 [id number] [facility] 00:00:00 00:00:00 d_J [id number] Medica l 2023-03-09 2023-03-09 Outpatient GC_BAHC_Tod PRIV PRIV 140 [id number] [facility] 00:00:00 00:00:00 d_J [id number] Medica l 2023-03-02 2023-03-02 Outpatient GC_BAHC_Tod PRIV PRIV 140 [id number] [facility] 00:00:00 00:00:00 d_J [id number] Medica l 2023-03-02 2023-03-02 Outpatient GC_BAHC_Tod PRIV PRIV 140 [id number] [facility] 00:00:00 00:00:00 d_J [id number] Medica l 2023-03-02 2023-03-02 Outpatient GC_BAHC_Tod PRIV PRIV 140 [id number] [facility] 00:00:00 00:00:00 d_J [id number] Medica l 2023-02-23 2023-02-23 Outpatient GC_BAHC_Tod PRIV PRIV 140 [id number] [facility] 00:00:00 00:00:00 d_J [id number] Medica l 2023-02-23 2023-02-23 Outpatient GC_BAHC_Tod PRIV PRIV 140 [id number] [facility] 00:00:00 00:00:00 d_J [id number] Medica l 2023-02-21 2023-02-21 Outpatient GC_BAHC_Tod PRIV PRIV 140 [id number] [facility] 00:00:00 00:00:00 d_J [id number] Medica l 2023-02-15 2023-02-15 Outpatient EWA WEBER [id number] [facility]wa 00:00:00 00:00:00 BRIDGET shea 2023-02-10 2023-02-10 Outpatient GC_BAHC_Tod PRIV PRIV 140 [id number] [facility] 00:00:00 00:00:00 d_J [id number] Medica l 2023-02-10 2023-02-10 Outpatient GC_BAHC_Tod PRIV PRIV 140 [id number] [facility] 00:00:00 00:00:00 d_J [id number] Medica l 2023-02-10 2023-02-10 Outpatient GC_BAHC_Tod PRIV PRIV 140 [id number] [facility] 00:00:00 00:00:00 d_J [id number] Medica l 2023-01-26 2023-01-26 Outpatient GC_BAHC_Tod PRIV PRIV 140 [id number] [facility] 00:00:00 00:00:00 d_J [id number] Medica l 2023-01-13 2023-01-13 Outpatient GC_BAHC_Tod PRIV PRIV 140 [id number] [facility] 00:00:00 00:00:00 d_J [id number] Medica l 2023-01-13 2023-01-13 Outpatient GC_BAHC_Tod PRIV PRIV 140 [id number] [facility] 00:00:00 00:00:00 d_J [id number] Medica l 2023-01-13 2023-01-13 Outpatient GC_BAHC_Tod PRIV PRIV 140 [id number] [facility] 00:00:00 00:00:00 d_J [id number] Medica l 2023-01-13 2023-01-13 Outpatient GC_BAHC_Tod PRIV PRIV 140 [id number] [facility] 00:00:00 00:00:00 d_J [id number] Medica l 2023-01-13 2023-01-13 Outpatient GC_BAHC_Tod PRIV PRIV 140 [id number] [facility] 00:00:00 00:00:00 d_J [id number] Medica l 2022-12-23 2022-12-23 Outpatient GC_BAHC_Tod PRIV PRIV 140 [id number] [facility] 00:00:00 00:00:00 d_J [id number] Medica l 2022-12-23 2022-12-23 Outpatient GC_BAHC_Tod PRIV PRIV 140 [id number] [facility] 00:00:00 00:00:00 d_J [id number] Medica l 2022-12-21 2022-12-21 Outpatient GC_BAHC_Tod PRIV PRIV 140 [id number] [facility] 00:00:00 00:00:00 d_J [id number] Medica l 2022-12-15 2022-12-15 Outpatient GC_BAHC_Tod PRIV PRIV 140 [id number] [facility] 00:00:00 00:00:00 d_J [id number] Medica l 2022-12-10 2022-12-10 Randi [facility] [id number] [facility] 00:00:00 00:00:00 KOREY Mistry: Health - Med ical [address] [place] [address] , Ph. 2022-11-30 2022-12-08 Inpatient [facility] Medical ICU [id number] [facility] 03:28:00 14:00:00 DARREL 2022-11-30 2022-12-08 [facility] [id number] [facility] 03:[facility] 14:00:00 Encounter Yassine Lafleur Sophia Me dical Shieh [facility] 2022-11-30 2022-12-08 [facility] [id number] [facility] 03:28:00 14:00:00 Yassine Baptiste Sophia Me dical Shieh [facility] 2022-12-07 2022-12-07 Outpatient GC_BAHC_Tod PRIV PRIV 140 [id number] [facility] 00:00:00 00:00:00 d_J [id number] Medica l 2022-12-07 2022-12-07 Outpatient GC_BAHC_Tod PRIV PRIV 140 [id number] [facility] 00:00:00 00:00:00 d_J [id number] Medica l 2022-11-29 2022-11-[address] [facility] - [facility] 502 [facility] 00:00:00 00:00:00 Fede PA: Health - Med ical [address] [place] [address] , Ph. 2022-11-25 2022-11-[address] [facility] - [facility] 428 [facility] 00:00:00 00:00:00 Fede PA: Health - Med ical [address] [place] [address] , Ph. 2022-11-15 2022-11-15 Randi [facility] 418 [facility] 00:00:00 00:00:00 KOREY Mistry: Health - Med ical [address] [place] [address] , Ph. 2022-11-11 2022-11-11 Randi [facility] 414 [facility] 00:00:00 00:00:00 KOREY Mistry: Health - Med ical [address] [place] [address] , Ph. 2022-11-02 2022-11-[address] [facility] - [facility] 405 [facility] 00:00:00 00:00:00 KOREY Mistry: Health - Med ical [address] [place] [address] , Ph. 2022-10-28 2022-10-28 [facility] [id number] [facility] 00:00:00 00:00:00 Fede PA: Health - Med ical [address] [place] [address] , Ph. 2022-10-26 2022-10-26 Randi [facility] [id number] [facility] 00:00:00 00:00:00 KOREY Mistry: [facility] - Med ica [address] [place] [address] , Ph. 2022-10-24 2022-10-24 Outpatient GC_BAHC_Tod PRIV PRIV 140 [id number] [facility] 00:00:00 00:00:00 d_J [id number] Medica l 2022-10-24 2022-10-24 Outpatient GC_BAHC_Tod PRIV PRIV 140 [id number] [facility] 00:00:00 00:00:00 d_J [id number] Medica l 2022-10-24 2022-10-24 Outpatient GC_BAHC_Tod PRIV PRIV 140 [id number] [facility] 00:00:00 00:00:00 d_J [id number] Medica l 2022-10-24 2022-10-24 Outpatient GC_BAHC_Tod PRIV PRIV 140 [id number] [facility] 00:00:00 00:00:00 d_J [id number] Medica l 2022-10-24 2022-10-24 Outpatient GC_BAHC_Tod PRIV PRIV 140 [id number] [facility] 00:00:00 00:00:00 d_J [id number] Medica l 2022-10-24 2022-10-24 Outpatient GC_BAHC_Tod PRIV PRIV 140 [id number] [facility] 00:00:00 00:00:00 d_J [id number] Medica l 2022-10-24 2022-10-24 Outpatient GC_BAHC_Tod PRIV PRIV 140 [id number] [facility] 00:00:00 00:00:00 d_J [id number] Medica l 2022-10-24 2022-10-24 Outpatient GC_BAHC_Tod PRIV PRIV 140 [id number] [facility] 00:00:00 00:00:00 d_J [id number] Medica l 2022-10-24 2022-10-24 Outpatient GC_BAHC_Tod PRIV PRIV 140 [id number] [facility] 00:00:00 00:00:00 d_J [id number] Medica l 2022-10-24 2022-10-24 Outpatient GC_BAHC_Tod PRIV PRIV 140 [id number] [facility] 00:00:00 00:00:00 d_J [id number] Medica l 2022-10-21 2022-10-21 Randi [facility] [id number] [facility] 00:00:00 00:00:00 Fede PA: Health - Med ical [address] [place] [address] , Ph. 2022-10-18 2022-10-18 Randi [facility] [id number] [facility] 00:00:00 00:00:00 Fede PA: Health - Med ical [address] [place] [address] , Ph. 2022-10-11 2022-10-11 Randi [facility] [id number] [facility] 00:00:00 00:00:00 KOREY Mistry: Health - Med ical [address] [place] [address] , Ph. 2022-10-07 2022-10-07 [facility] [id number] [facility] 00:00:00 00:00:00 KOREY Mistry: Health - Med ical [address] [place] [address] , Ph. 2022-10-04 2022-10-04 Randi [facility] [id number] [facility] 00:00:00 00:00:00 KOREY Mistry: Health - Med ical [address] [place] [address] , Ph. 2022-09-30 2022-09-30 [facility] [id number] [facility] 00:00:00 00:00:00 KORYE Mistry: Health - Med ical [address] [place] [address] , Ph. 2022-09-28 2022-09-28 [facility] [id number] [facility] 00:00:00 00:00:00 KOREY Mistry: Health - Med ical [address] [place] [address] , Ph. 2022-09-24 2022-09-24 Outpatient GC_BAHC_Tod PRIV PRIV 140 [id number] [facility] 00:00:00 00:00:00 d_J [id number] Medica l 2022-09-24 2022-09-24 Outpatient GC_BAHC_Tod PRIV PRIV 140 [id number] [facility] 00:00:00 00:00:00 d_J [id number] Medica l 2022-09-24 2022-09-24 Outpatient GC_BAHC_Tod PRIV PRIV 140 [id number] [facility] 00:00:00 00:00:00 d_J [id number] Medica l 2022-09-24 2022-09-24 Outpatient GC_BAHC_Tod PRIV PRIV 140 [id number] [facility] 00:00:00 00:00:00 d_J [id number] Medica l 2022-09-24 2022-09-24 Outpatient GC_BAHC_Tod PRIV PRIV 140 [id number] [facility] 00:00:00 00:00:00 d_J [id number] Medica l 2022-09-24 2022-09-24 Outpatient GC_BAHC_Tod PRIV PRIV 140 [id number] [facility] 00:00:00 00:00:00 d_J [id number] Medica l 2022-09-24 2022-09-24 Outpatient GC_BAHC_Tod PRIV PRIV 140 [id number] [facility] 00:00:00 00:00:00 d_J [id number] Medica l 2022-09-24 2022-09-24 Outpatient GC_BAHC_Tod PRIV PRIV 140 [id number] [facility] 00:00:00 00:00:00 d_J [id number] Medica l 2022-09-24 2022-09-24 Outpatient GC_BAHC_Tod PRIV PRIV 140 [id number] [facility] 00:00:00 00:00:00 d_J [id number] Medica l 2022-09-23 2022-09-23 [facility] [id number] [facility] 00:00:00 00:00:00 KOREY Mistry: Health - Med ical [address] [place] [address] , Ph. 2022-09-21 2022-09-21 Outpatient GC_BAHC_Tod PRIV PRIV 140 [id number] [facility] 00:00:00 00:00:00 d_J [id number] Medica l 2022-09-21 2022-09-21 Outpatient GC_BAHC_Tod PRIV PRIV 140 [id number] [facility] 00:00:00 00:00:00 d_J [id number] Medica l 2022-09-20 2022-09-20 Outpatient GC_BAHC_Tod PRIV PRIV 140 [id number] [facility] 00:00:00 00:00:00 d_J [id number] Medica l 2022-09-20 2022-09-20 Randi [facility] [id number] [facility] 00:00:00 00:00:00 KOREY Mistry: Health - Med ical [address] [place] [address] , Ph. 2022-09-19 2022-09-19 Outpatient GC_BAHC_Tod PRIV PRIV 140 [id number] [facility] 00:00:00 00:00:00 d_J [id number] Medica l 2022-09-19 2022-09-19 Outpatient GC_BAHC_Tod PRIV PRIV 266 [id number] [facility] 00:00:00 00:00:00 d_J [id number] Medica l 2022-09-16 2022-09-16 Randi [facility] [id number] [facility] 00:00:00 00:00:00 KOREY Mistry: Health - Med ical [address] [place] [address] , Ph. 2022-09-13 2022-09-13 Outpatient Marco Antonio [facility] [id number] [facility] 13:00:00 13:00:00 LOVE afshin [facility] 2022-09-13 2022-09-13 Outpatient GC_BAHC_Tod PRIV PRIV 140 [id number] [facility] 00:00:00 00:00:00 d_J [id number] Medica l 2022-09-13 2022-09-13 Chuyafshin Rosado [facility] [id number] [facility] 00:00:00 00:00:00 Abigail [facility] - Med ical MD: [address] [place] [address] , Ph. 2022-09-10 2022-09-10 Outpatient GC_BAHC_Tod PRIV PRIV 266 [id number] [facility] 00:00:00 00:00:00 d_J [id number] Medica l 2022-09-10 2022-09-10 Outpatient GC_BAHC_Tod PRIV PRIV 266 [id number] [facility] 00:00:00 00:00:00 d_J [id number] Medica l 2022-09-10 2022-09-10 Randi [facility] [id number] [facility] 00:00:00 00:00:00 KOREY Mistry: Health - Med ical [address] [place] [address] , Ph. 2022-09-06 2022-09-06 Outpatient GC_BAHC_Tod PRIV PRIV 140 [id number] [facility] 00:00:00 00:00:00 d_J [id number] Medica l 2022-09-06 2022-09-06 Outpatient GC_BAHC_Tod PRIV PRIV 266 [id number] [facility] 00:00:00 00:00:00 d_J [id number] Medica l 2022-09-06 2022-09-06 Transition PAT Boykin 1.2.840.114 [id number] [facility] 00:00:00 00:00:00 of Care Shayan Beckett JOSE MANUEL 350.1.13.10 ity of [place] 4.2.7.2.686 [facility] [id number] [facility] [address] 2022-08-16 2022-09-05 Inpatient X ARGELIA [facility] SORAIDA [id number] Univers 07:41:00 19:30:00 ONEIDA nole [facility] 2022-08-16 2022-09-05 Hospital Renetta Desai [facility] 1.2.84 0.114 [id number] Univers 07:41:00 19:30:00 Encounter Jin Valiente 350.1.13.10 ity of [place] 4.2.7.2.[address] [place] [address] [phone] [facility] [address] 2022-09-01 2022-09-01 [facility] 1.2.840.114 [id number] Univers 00:00:00 00:00:00 Love LOPEZ 350.1.13.10 ity of I[place] 4.2.7.2.686 [facility] [id number] [facility] [place] [address] [facility] 2022-08-06 2022-08-06 Emergency X [facility] [id number] Univers 09:13:00 13:11:00 CIRILO noel [facility] 2022-08-06 2022-08-06 [facility] 1.2.689.892 [id number] Univers 09:13:00 13:11:00 Cirilo BOUCHER 350.1.13.10 ity of [place] 4.2.7.[address] [place] [address] [phone] [place] 958304 Branch 2022-07-21 2022-07-21 Orders Doctor GONZALEZ 1.2.840.114 [id number] Univers 00:00:00 00:00:00 Only Unassigned, LENA 350.1.13.10 ity of [facility] 4.2.7.2.686 Guerrero as [phone] [address] 2022-07-20 2022-07-20 Emergency [facility] [id number] Univers 13:49:00 16:54:00 DEVIKA ity [facility] 2022-07-20 2022-07-20 [facility] 1.2.904.267 [id number] Univers 13:49:00 16:54:00 Devika BOUCHER 350.1.13.10 i ty of [place] 4.2.7.2.686 [facility] [place] [phone] [address] 2022-07-16 2022-07-16 Emergency [facility] [id number] Univers 08:02:00 11:10:00 RENETTA noel [facility] 2022-07-16 2022-07-16 Emergency [facility] 1.2.840.114 [id number] Univers 08:02:00 11:10:00 Renetta BOUCHER 350.1.13.10 ity [facility] 4.2.7.2.686 [facility] [phone] [address] 2022-07-12 2022-07-12 Outpatient R [facility] 10 [id number] Univers 10:00:00 10:00:00 WIL VAN i ty [facility] 2022-07-08 2022-07-08 Emergency [facility] [id number] Univers 11:51:00 20:30:00 CIRILO noel [facility] 2022-07-08 2022-07-08 Emergency [facility] 1.2.253.101 [id number] Univers 11:51:00 20:30:00 Cirilo BOUCHER 350.1.13.10 ity [facility] 4.2.7.2.686 [facility] [phone] [address] 2022-06-27 2022-06-27 Orders Doctor GONZALEZ 1.2.840.114 [id number] Univers 00:00:00 00:00:00 Only Unassigned, LENA 350.1.13.10 ity of [facility] 4.2.7.2.686 Guerrero as [phone] [address] 2022-06-17 2022-06-17 Telephone Opal IDAURORA 1.2.950.591 [id number] Univers 00:00:00 00:00:00 Wil BOUCHER 350.1.13.10 i ty of [place] [phone] N[place] dical NAL [address] [place] [address] 2022-05-24 2022-05-24 Outpatient R [facility] 10 [id number] Univers 11:30:00 14:55:56 WIL VAN i ty of [facility] 2022-05-24 2022-05-24 Office Opal [facility] 1.2.840.114 [id number] Univers 11:30:00 12:00:00 [facility] THELMA 350.1.13.10 i ty of [place] 4[place]2.7.2.[place] [phone] Nc dical NAL [address] [place] [address] 2022-05-03 2022-05-03 Telemedici Monroe [facility] 1.2.840.114 [id number] Univers 15:00:00 15:30:00 ne Visit Love LOPEZ 350.1.13.10 ity of [facility] 4.2.7.2.686 [place] [phone] [address] [facility] 2022-05-03 2022-05-03 Outpatient R [facility] [id number] Univers 15:00:00 15:00:[address] [facility] 2022-04-29 2022-04-29 Telephone Monroe [facility] 1.2.840.114 [id number] Univers 00:00:00 00:00:00 Love LOPEZ 350.1.13.10 it[place].2.[place] [phone] [address] [facility] 2022-04-29 2022-04-29 Telephone Monroe [facility] 1.2.840.114 [id number] Univers 00:00:00 00:00:00 Love MULTISPEC 350.1.13.10 [place] [id number] [facility] [address] [facility] 2022-04-28 2022-04-28 Transition PAT Boykin 1.2.840.114 [id number] Univers 00:00:00 00:00:00 of Care Shayan FREEMANY 350.1.13.10 [place] of [place] 4.2.7.2.686 [facility] [phone] [facility] [address] 2022-04-21 2022-04-27 Inpatient X LEX [facility] [id number] Univers 18:08:00 14:50:[address] [facility] 2022-04-21 2022-04-27 [facility] CortezBebo [facility] 1.2.8 40.114 [id number] Univers 18:08:00 14:50:00 Encounter Arielle Palomino 350.1.13.10 ity of Baldevarti Rashadmarleny [place] 4.2.7.2.686 [facility] [phone] [facility] [address] 2022-04-26 2022-04-26 Surgery [facility] 1.2.576.591 [id number] Univers 07:55:00 09:29:00 Sheyla BOUCHER 350.1.13.10 i ty of [place] 4.2.7.2.686 [facility] SURGICAL [id number] [facility] [address] 2022-03-22 2022-03-22 Outpatient [facility] [id number] [place] 13:00:00 13:00:00 [facility] 2022-03-02 2022-03-15 Inpatient Critical access hospital [id number] [facility] 23:59:18 18:07:00 marco antonio Jane 01 l [facility] 2022-03-02 2022-03-15 Inpatient E JAC JUANA NW 7501 NRubia 21:32:00 13:07:00 SAILAJA 2022-03-02 2022-03-15 Outpatient Jac [facility] [id number] 18:59:18 13:07:00 , Sailaja 01 2022-03-02 2022-03-02 Outpatient FERNANDO SchaeferR [facility] [id number] 18:59:18 18:59:18 Marques Yaakov 2022-01-24 2022-02-25 Outpatient PURVI Nazario PPS [id number] [facility] 23:40:00 18:20:00 Imoigele [address] [place] [facility] are [facility] 2022-01-24 2022-02-25 Inpatient EL [place], [facility] [id number] 22:28:00 18:20:00 Imoigele 81 tone Special ty [facility] 2022-01-24 2022-02-25 Inpatient EL Rockyiku, [facility] ICU [id number] 22 Corners 22:28:00 18:20:00 Imoigele 0627 tone Special ty [facility] 2022-02-23 2022-02-23 Outpatient Elective [place], [facility] [id number] [facility] 11:05:00 20:24:00 Darryl 21 2022-02-23 2022-02-23 Outpatient [facility] [id number] [facility] 11:05:00 11:05:00 21 2022-02-21 2022-02-21 Outpatient Marco Antonio [facility] [id number] Univers 15:30:00 15:30:00 LOVE noel [facility] 2022-01-25 2022-01-25 Outpatient PURVI Nazario REF [id number] [facility] 08:04:00 08:04:00 Imoigele [address] [facility] are [facility] 2021-12-30 2022-01-25 Inpatient Critical access hospital [id number] [facility] 14:35:00 02:50:00 r Buck [address] [place] [address] 2021-12-30 2022-01-24 Inpatient E [id number] 10:30:00 21:50:00 RAIMUNDO 2021-12-30 2022-01-24 Outpatient Alfonso [facility] [id number] 09:35:00 21:50:00 Raimundo 67 2022-01-24 2022-01-24 Outpatient Marco Antonio [facility] [id number] Univers 15:00:00 15:00:00 LOVE ity [facility] 2022-01-17 2022-01-17 [facility] 1.2.840.114 [id number] Univers 00:00:00 00:00:00 Love MULTISPEC 350.1.13.10 ity of [place] 4.2.7.2.686 [facility] [id number] [facility] AND [address] DIAB[facility]ES [facility]INIC 2022-01-08 2022-01-08 Outpatient [facility]NA [facility] [id number] ID 08:30:00 08:30:00 [facility] 2021-12-30 2021-12-30 Outpatient Luis [facility] [id number] 09:35:00 09:35:00 Reno [address] [place] 2021-12-06 2021-12-06 Outpatient Marco Antonio [facility] [id number] Univers 08:00:00 08:00:00 [facility] 2021-12-06 2021-12-06 Outpatient Marco [facility] [id number] Univers 08:00:00 08:00:00 [facility] 2021-11-22 2021-11-22 Outpatient Marco Antonio [facility] [id number] Univers 15:30:00 [facility]30[facility]-11-22 2021-11-22 [facility] 1.2.223.851 [id number] Univers 15:30:00 16:30:47 Visit Love MULTISPEC 350.1.13.10 ity of [place] 4.2.7.2.686 [facility] [id number] [address] [facility] 2021-11-22 2021-11-22 Outpatient Marco Antonio [facility] [id number] Univers 15:30:00 16:30:47 LOVE ity [facility] 2021-11-22 2021-11-22 Outpatient R [facility] [id number] Univers 15:30:00 15:30:00 LOVE ity [facility] 2021-11-19 2021-11-19 Varitypist Henny [facility] Main [facility] 1.2.8 40.114 [id number] Univers 08:00:00 08:15:00 Visit Darrel Wooten 350.1.13.10 ity of [place] 4.2.7.2.686 [facility] [phone] Nc dical [address] 2021-11-19 2021-11-19 Outpatient R [facility] [id number] Univers 08:00:00 08:00:00 LOVE noel [facility] 2021-11-19 2021-11-19 Outpatient R [facility] [id number] Univers 08:00:00 08:00:00 LOVE noel [facility] 2021-11-15 2021-11-15 [facility] 1.2.840.114 [id number] Univers 00:00:00 00:00:00 Love LOPEZ 350.1.13.10 ity of [place] 4.2.7.2.686 [facility] [id number] [address] [facility] 2021-09-03 2021-09-03 [facility] 1.2.840.114 [id number] Univers 00:00:00 00:00:00 Love MULTISPEC 350.1.13.10 [place] [id number] [facility] [address] [facility] 2021-08-23 2021-08-23 Varitypist Vtc-Lab [facility] 1.2.840.114 [id number] Univers 16:00:00 16:15:00 Visit [place] 350.1.13.1 0 [place] [phone] [facility] [address] [facility] 2021-08-23 2021-08-23 [facility] [id number] Univers 15:00:00 15:22:06 LOVE ity [facility] 2021-08-23 2021-08-23 [facility] [id number] [id number] Univers 15:00:00 15:22:06 Visit Love MULTISPEC 350.1.13.10 ity of [place] 4.2.7.2.686 [facility] [phone] [address] [facility] 2021-08-23 2021-08-23 Outpatient R [facility] [id number] Univers 15:00:00 15:00:00 LOVE ity [facility] 2021-08-18 2021-08-18 Outpatient R [facility] [id number] Univers 08:00:00 08:00:00 LOVE ity [facility] 2021-08-18 2021-08-18 Outpatient R [facility] [id number] Univers 08:00:00 08:00:00 LOVE ity [facility] 2021-08-18 2021-08-18 Outpatient R [facility] [id number] Univers 08:00:00 08:00:00 LOVE ity [facility] 2021-08-18 2021-08-18 Outpatient R [facility] [id number] Univers 08:00:00 08:00:00 LOVE ity [facility] 2021-08-13 2021-08-13 [facility] 1.2.840.114 [id number] Univers 00:00:00 00:00:00 Love MULTISPEC 350.1.13.10 ity of [place] 4.2.7.2.686 [facility] [id number] [address] [facility] 2021-07-05 2021-07-05 Hospital Radiology [facility] 1.2.840.114 [id number] Univers 10:15:52 23:59:00 Encounter [place] 350.1.13.10 ity of [place] 4.2.7.2.686 [facility] [phone] [facility] [address] 2021-07-05 2021-07-05 Outpatient R RADIOLOGY [facility] [id number] Univers 10:14:58 10:14:[address] [facility] 2021-07-05 2021-07-05 Hospital Radiology [facility] 1.2.840.114 [id number] Univers 10:14:58 10:14:58 Encounter [place] 350.1.13.10 ity of [place] 4.2.7.2.686 [facility] [id number] [facility] [address] 2021-07-05 2021-07-05 Orders Doctor DARRYL 1.2.840.114 [id number] Univers 00:00:00 00:00:00 Only Unassigned, LENA 350.1.13.10 ity of [place] [facility] 4.2.7.2.686 [facility] [id number] [facility] [address] 2021-06-28 2021-06-28 Outpatient R RADIOLOGY [facility] [id number] Univers 00:00:00 00:00:[address] [facility] 2021-06-28 2021-06-28 Telephone [place]A 1.2.840.114 [id number] Univers 00:00:00 00:00:00 Love MULTISPEC 350.1.13.10 ity of [facility] 4.2.7.2.686 [facility] [id number] [facility] [address] [facility] 2021-06-23 2021-06-23 Outpatient R RADIOLOGY [facility] [id number] Univers 00:00:00 00:00:[address] [facility] 2021-06-23 2021-06-23 Outpatient R RADIOLOGY [facility] [id number] Univers 00:00:00 00:00:[address] [facility] 2021-06-23 2021-06-23 Outpatient R RADIOLOGY [facility] [id number] Univers 00:00:00 00:00:[address] [facility] 2021-05-24 2021-05-24 Outpatient R MONROE [facility] [id number] Univers 15:00:00 15:41:49 LOVE ity [facility] 2021-05-24 2021-05-24 Office [place] IDAURORA 1.2.057.637 [id number] Univers 14:46:50 15:41:49 Visit Love LOPEZ 350.1.13.10 [place] [id number] [address] [facility] 2021-05-18 2021-05-18 Outpatient R MONROE [facility] [id number] Univers 08:30:00 08:30:00 LOVE noel [facility] 2021-05-18 2021-05-18 Outpatient R [facility] [id number] Univers 08:30:00 08:30:00 LOVE [facility] 2021-05-18 2021-05-18 Varitypist Trevor, Adc Lab Main [facility] 1.2.8 40.114 [id number] Univers 08:14:04 08:29:04 Visit Love Childress 350.1.13.10 [place] of [place] [phone] [place]ical [address] 2021-05-17 2021-05-17 [facility] 1.2.840.114 [id number] Univers 00:00:00 00:00:00 Love ROBERTOPEC 350.1.13.10 ity of [place] 4.2.7.2.686 [facility] KEENE [phone] [address] [facility] 2021-04-27 2021-04-27 Outpatient GC_EAH_Brow PRIV PRIV 140 [id number] [facility] 00:00:00 00:00:00 n_J [id number] Medica l 2021-03-30 2021-03-30 Orders Doctor DARRYL 1.2.840.114 [id number] Univers 00:00:00 00:00:00 Only Unassigned, LENA 350.1.13.10 ity of [place] [facility] 4.2.7.2.686 Guerrero as [phone] [facility] [address] 2021-03-24 2021-03-24 Outpatient R [facility] [id number] Univers 16:30:00 16:30:00 LOVE [facility] 2021-03-15 2021-03-15 Transition Pat Boykin 1.2.840.114 [id number] Univers 00:00:00 00:00:00 of Care Shayan Freemany 350.1.13.10 it[place] of [place] [phone] [facility] [address] 2021-03-11 2021-03-12 Emergency Zach Bonilla [facility] 1.2.840. 114 [id number] Univers 08:41:00 17:30:00 Jin Valiente 350.1.13.10 [place] of [place] [phone] [facility] [address] 2021-02-22 2021-02-22 Nurse Nurse, [facility] Nephrology [facility] 1.2. 840.114 [id number] Univers 10:14:31 10:44:31 Visit Love Childress 350.1.13.1 0 [place] [phone] [address] [facility]ES CLINIC 2021-02-22 2021-02-22 Outpatient R [facility] [id number] Univers 10:30:00 10:30:00 LOVE noel [facility] 2021-02-22 2021-02-22 Outpatient R [facility] 01271 [id number] Univers 10:30:00 10:30:00 LOVE noel [facility] 2021-02-22 2021-02-22 [facility] 1.2.840.114 [id number] Univers 00:00:00 00:00:00 Love LOPEZ 350.1.13.10 [place] [phone] [address] [facility] 2021-02-09 2021-02-09 [facility] 1.2.840.114 [id number] Univers 00:00:00 00:00:00 Love LOPEZ 350.1.13.10 [place] [phone] [address] [facility] 2021-02-08 2021-02-08 Varitypist [facility]-Lab [facility] 1.2.840.114 [id number] Univers 16:46:29 17:01:29 Visit MonroeLove 350.1.13.1 0 it[place] [phone] [address] [facility]ES [facility]INIC 2021-02-08 2021-02-08 Office [place] [facility] 1.2.591.503 0007 [id number] Univers 15:33:37 16:49:16 Visit Love ROBERTOFEI 350.1.13.10 [place] [id number] [address] [facility]ES [facility]INIC 2021-02-08 2021-02-08 Outpatient R [facility] [id number] Univers 16:45:00 16:45:00 LOVE noel [facility] 2021-02-08 2021-02-08 Outpatient R [facility] [id number] Univers 16:00:00 16:00:00 LOVE itafshin [facility] 2021-01-29 2021-01-29 Telephone [place] [facility] 1.2.840.114 [id number] Univers 00:00:00 00:00:00 Love FELISAFEI 350.1.13.10 [place] [phone] [address] [facility] 2021-01-13 2021-01-13 Nurse Nurse, [facility] Nephrology [facility] 1.2. 840.114 [id number] Univers 10:07:03 10:37:03 Visit Love Childress 350.1.13.1 0 [place] [id number] [address] [facility] 2021-01-13 2021-01-13 Outpatient R [facility] [id number] Univers 10:30:00 10:30:00 LOVE itafshin [facility] 2021-01-13 2021-01-13 Outpatient R [facility] [id number] Univers 10:30:00 10:30:00 LOVE ity [facility] 2020-12-30 2020-12-30 Varitypist [facility] 1.2.840.114 [id number] Univers 16:26:56 16:41:56 Visit Love Childress 350.1.13.1 0 ity of [place] 4.2.7.2.686 [facility] KE[place] [phone] [address] [facility] 2020-12-30 2020-12-30 [facility] 1.2.495.664 [id number] Univers 15:03:03 16:24:14 Visit [facility] 350.1.13.10 ity of [place] 4.2.7.2.686 [facility] [phone] [address] [facility]ES [facility]INIC 2020-12-30 2020-12-30 Outpatient R [facility] [id number] [id number] Univers 15:30:00 15:30:00 LOVE ity [facility] 2020-11-25 2020-11-25 Outpatient R [facility] [id number] [id number] Univers 16:00:00 [facility]:00:00 [facility] 2020-11-25 2020-11-25 Outpatient R [facility] 73914 [id number] Univers 16:00:00 16:00:00 [facility] 2020-11-23 2020-11-23 Orders Doctor GONZALEZ 1.2.840.114 [id number] Univers 00:00:00 00:00:00 Only Unassigned, LENA 350.1.13.10 ity of [place] [facility] 4.2.7.2.686 [facility] [phone] [address] 2020-11-18 2020-11-18 Office [facility] 1.2.466.991 [id number] Univers 15:47:12 16:22:19 Visit Love [facility] 350.1.13.10 ity of [place] 4.2.7.2.686 [facility] KEENE [phone] [address] [facility]ES [facility] 2020-11-18 2020-11-18 Outpatient R [facility] [id number] Univers 16:00:00 16:00:00 LOVE ity [facility] 2020-11-02 2020-11-02 Telephone [place] [facility] 1.2.840.114 [id number] Univers 00:00:00 00:00:00 Love ROBERTOPEC 350.1.13.10 ity of [place] 4.2.7.2.686 [facility] [place] [phone] [address] [facility]ES [facility]INIC 2020-10-21 2020-10-21 Varitypist Vac-Lab [facility] 1.2.840.114 [id number] Univers 16:33:57 16:48:57 Visit Love Childress 350.1.13.1 0 ity of [place] 4.2.7.2.686 [facility] [place] [phone] [address] [facility] 2020-10-21 2020-10-21 Office [place] [facility] 1.2.729.784 [id number] Univers 15:50:19 16:36:29 Visit Love LOPEZ 350.1.13.10 ity of [place] 4.2.7.2.686 [facility] [place] [phone] [address] DI[facility]ETES CLINIC 2020-10-21 2020-10-21 Outpatient R [facility] [id number] Univers 16:00:00 16:00:00 LOVE itafshin [facility] 2020-10-16 2020-10-16 Outpatient R [facility] [id number] Univers 17:15:00 17:15:00 LOVE ity [facility] 2020-08-26 2020-08-26 Outpatient R [facility] 19705 [id number] Univers 17:15:00 17:15:00 LOVE ity [facility] 2020-08-19 2020-08-19 [facility] 1.2.895.334 [id number] Univers 15:31:52 16:36:25 Visit Love LOPEZ 350.1.13.10 [place] [phone] [facility] AND [address] DI[facility]ETES CLINIC 2020-08-19 2020-08-19 [facility] 1.2.198.544 [id number] 15:31:52 16:36:25 Visit [facility] 350.1.13.10 IAL[place] 4.2.7.2.686 CENTER [phone] [place] [address] [facility]ES CLINIC 2020-08-19 2020-08-19 Outpatient R [facility] 46825 [id number] Univers 16:00:00 16:00:00 LOVE ity [facility] 2020-08-15 2020-08-15 Outpatient R [facility] [id number] Univers 10:00:00 10:00:00 ity [facility] 2020-08-12 2020-08-12 [facility]phone [facility] 1.2.840.114 [id number] Univers 00:00:00 00:00:00 [facility] 350.1.13.10 [place] [phone] [address] [facility] 2020-07-10 2020-07-10 [facility] 1.2.840.114 [id number] Univers 00:00:00 00:00:00 [facility] 350.1.13.10 [place] [phone] [address] [facility] 2020-07-09 2020-07-09 [facility] 1.2.678.516 [id number] [id number] Univers 15:38:31 16:13:45 Visit [facility] 350.1.13.10 [place] [phone] [address] [facility] 2020-07-09 2020-07-09 Outpatient R [facility] [id number] Univers 16:00:00 16:00:00 [facility] 2020-07-04 2020-07-04 Varitypist Trevor, Henny Lab Main [facility] 1.2.8 40.114 [id number] Univers 11:01:34 11:16:34 Visit Love Childress Edmondson 350.1.13.10 ity of [place] 4.2.7.2.686 [facility] [phone] N[place] dical [address] 2020-07-04 2020-07-04 Outpatient R [facility] [id number] Univers 09:00:00 09:00:[address] [facility] 2020-07-04 2020-07-04 Orders Doctor DARRYL 1.2.840.114 [id number] Univers 00:00:00 00:00:00 Only Unassigned, LENA 350.1.13.10 ity of [place] [facility] 4.2.7.2.686 [facility] [phone] [address] 2020-06-30 2020-06-30 Outpatient R [facility] [id number] Univers 15:30:00 15:30:[address] [facility] 2020-06-22 2020-06-22 Telephone [facility] 1..840.114 [id number] Univers 00:00:00 00:00:00 Love MULTISPEC 350.1.13.10 ity of [place] 4.2.7.2.686 [facility] [place] [phone] [address] [facility] 2020-06-10 2020-06-10 Outpatient R [facility] [id number] Univers 08:00:00 08:00:[address] [facility] 2020-06-06 2020-06-06 Refill [facility] 1.2.075.693 [id number] Univers 00:00:00 00:00:00 Love MULTISPEC 350.1.13.10 ity of [place] 4.2.7.2.686 [facility] [place] [phone] [address] [facility] 2020-05-28 2020-05-28 Office [facility] 1.2.684.319 [id number] Univers 13:41:46 14:36:57 Visit Love MULTISPEC 350.1.13.10 ity of [place] 4.2.7.2.686 [facility] [place] [phone] [address] [facility] 2020-05-28 2020-05-28 Outpatient R [facility] [id number] Univers 14:00:00 14:00:00 LOVE noel [facility] 2020-05-22 2020-05-22 [facility]phone [facility] 1.2.840.114 [id number] Univers 00:00:00 00:00:00 Love JOHN 350.1.13.10 [place] [phone] [address] DIABETES [facility] 2020-05-21 2020-05-21 [facility]phone [facility] 1.2.840.114 [id number] Univers 00:00:00 00:00:00 Love JOHN 350.1.13.10 [place] [phone] [address] DIABETES [facility] 2020-05-19 2020-05-19 [facility]phone [facility] 1.2.840.114 [id number] Univers 00:00:00 00:00:00 Love JOHN 350.1.13.10 [place] [phone] [address] [facility] 2020-05-13 2020-05-13 Varitypist Trevor, Henny Lab Main [facility] 1.2.8 40.114 [id number] Univers 10:40:17 10:55:17 Visit Love Childress 350.1.13.10 it[place] of [place].2.[place] [facility] [phone] [address] 2020-05-13 2020-05-13 Laboratory Only, Adc Test [facility] 1.2.840. 114 [id number] Univers 10:37:56 10:52:56 Only Darrel Wooten 350.1.13.10 it[place] of [place].2.[place] [phone] [address] 2020-05-13 2020-05-13 Outpatient R CHRISTIANNE [facility] [id number] Univers 10:30:00 10:30:00 DARREL noel [facility] 2020-05-07 2020-05-07 [facility]phone [facility] 1.2.840.114 [id number] Univers 00:00:00 00:00:00 Love ROBERTOPEC 350.1.13.10 [place] [id number] [address] [facility] 2020-05-01 2020-05-01 [facility] 1.2.840.114 [id number] Univers 00:00:00 00:00:00 Love ROBERTOPEC 350.1.13.10 [place] [phone] [address] DIABETES [facility] 2020-04-28 2020-04-29 Office [place] [facility] 1.2.669.951 [id number] Univers 12:41:37 09:03:41 Visit Love ROBERTOFEI 350.1.13.10 [place] [phone] [address] DIABETES [facility] 2020-04-28 2020-04-28 Varitypist Vtc-Lab [facility] 1.2.840.114 [id number] Univers 13:39:25 13:54:25 Visit Love Childress 350.1.13.1 0 [place] [phone] [address] DIABETES [facility] 2020-04-28 2020-04-28 Outpatient R [facility] [id number] Univers 13:00:00 13:00:00 LOVE bert [facility] 2020-03-24 2020-03-24 Outpatient R [facility] [id number] Univers 10:00:00 10:00:00 LOVE noel [facility] 2020-03-24 2020-03-24 Telemedici [facility] 1.2.840.114 [id number] Univers 07:34:42 08:04:42 ne Visit Love FELISAFEI 350.1.13.10 it[place] [phone] [facility] [address] [facility] 2020-03-09 2020-03-09 Orders Doctor GONZALEZ 1.2.840.114 [id number] Univers 00:00:00 00:00:00 Only Unassigned, LENA 350.1.13.10 ity of [place] [facility] 4.2.7.2.686 [facility] [phone] [facility] [address] 2020-02-25 2020-02-25 Varitypist Vtc-Lab [facility] 1.2.840.114 [id number] Univers 16:14:01 16:29:01 Visit Love Childress 350.1.13.1 0 ity of [place] 4.2.7.2.686 [facility] [phone] [facility] [address] [facility] 2020-02-25 2020-02-25 [facility] 1.2.698.038 [id number] 6576 Univers 15:03:42 16:11:42 Visit Love LOPEZ 350.1.13.10 ity of [place] 4.2.7.2.[address] [place] [address] [phone] [facility] [address] [facility] 2020-02-25 2020-02-25 Outpatient R [facility] [id number] Univers 15:30:00 15:30:[address] [facility] 2020-02-17 2020-02-17 Transition NewtonPat 1.2.840.114 [id number] Univers 00:00:00 00:00:00 of Shahida Richard 350.1.13.10 it y of [place] 4.2.7.2.686 [facility] [phone] [facility] [address] 2020-02-11 2020-02-14 [facility] Chad Zach [facility] 1.2.840.1 14 [id number] Univers 09:16:15 17:50:00 Encounter Don Saunders 350.1.13.10 ity of [place] 4.2.7.2.686 [facility] [phone] [facility] [address] 2020-02-11 2020-02-11 Orders Doctor GONZALEZ 1.2.840.114 [id number] Univers 00:00:00 00:00:00 Only Unassigned, LENA 350.1.13.10 ity [place] [facility] 4.2.7.2.686 Guerrero as [phone] [address] 2019-12-04 2019-12-04 Telephone [facility] 1.2.104.269 [id number] Univers 00:00:00 00:00:00 Jatinder Boucher 350.1.13.10 i [place].2.[place] [facility] [phone] N[place] dical [facility] 044 [facility] 2019-12-02 2019-12-02 Orders Doctor DARRYL 1.2.840.114 [id number] Univers 00:00:00 00:00:00 Only Unassigned, LENA 350.1.13.10 ity of [place] [facility] 4.2.7.2.686 Guerrero as [phone] [address] 2019-11-16 2019-11-16 [facility] 13:42:00 18:35:00 SANDEE 2019-04-18 2019-04-18 Emergency [facility] 1.2.330.[id number] [facility] 17:33:55 18:19:00 Quinton Boucher 350.1.13.10 i [place].2.[place] [phone] [place] [address] 2018-10-15 2018-10-15 Outpatient MHIE MHIE [id number] Memoria 09:45:00 09:45:00 06 susan Jane 2018-07-16 2018-07-16 Outpatient MHIE MHIE [id number] Memoria 14:35:00 14:35:00 05 susan Jane 2018-04-16 2018-04-16 Outpatient MHIE MHIE [id number] Memoria 14:35:00 14:35:00 04 susan Jane 2016-09-28 2016-09-28 Outpatient MHIE MHIE [id number] Memoria 11:30:00 11:30:00 03 susan Jane 2016-09-28 2016-09-28 Outpatient MHIE MHIE [id number] Memoria 11:00:00 11:00:00 02 susan Jane 2016-06-30 2016-06-30 Outpatient MHIE MHIE [id number] Memoria 15:45:00 15:45:00 01 susan Buck 2015-07-07 2015-07-08 Inpatient nullFlavo [facility] [id number] Memoria 13:51:00 20:00:00 r Buck 04 [facility] 2015-07-07 2015-07-08 Outpatient Kody Valdez MHSE MHSE [id number] 07:51:00 14:00:00 [place] [address] 2014-12-05 2014-12-08 Inpatient karynaFlavo [facility] 23786 [id number] Memoria 22:23:00 23:15:00 r Arnold 29 [facility] 2014-12-05 2014-12-08 Outpatient [place], 2.16.840. 2.16.840.1. 4 [id number] 17:23:00 18:15:00 Valerie 1.940753. [id number] 29 Marisol 3.615.0.1 5.0.428 42 9641-05-08 2014-12-05 OBS [facility] [id number] Memoria 18:45:00 18:45:00 Surgery r Arnold 03 [facility] 2014-12-05 2014-12-05 Outpatient karynaFlavo [facility] 4516 [id number] Memoria 16:27:00 16:27:00 r Buck 28 [facility] 2014-12-05 2014-12-05 Outpatient [place], 2.16.840. 2.16.840.1. 4 [id number] 13:45:00 13:45:00 Valerie 1.841338. [id number] 03 Marisol 3.615.0.1 5.0.999 54 1807-05-08 2014-12-05 Outpatient [place], 2.16.840. 2.16.840.1. 4 [id number] 11:27:00 11:27:00 Valerie 1.737104. [id number] 28 Marisol 3.615.0.1 5.0.552 32 1158-04-08 2014-11-05 OBS Day karynaFlavo [facility] [id number] Memoria 14:00:00 20:44:00 Surgery r Arnold 02 [facility] 2014-11-05 2014-11-05 Outpatient [place], 2.16.840. 2.16.840.1. 4 [id number] 09:00:00 15:44:00 Valerie 1.263439. [id number] 02 Marisol 3.615.0.1 5.0.570 38 3688-03-27 2014-10-31 [facility] [id number] Memoria 04:56:00 21:35:00 r Arnold 85 [facility] 2014-10-23 2014-10-31 Outpatient Meñoliev, 2.16.840. 2.16.840.1. 4 [id number] 23:56:00 16:35:00 Agadadash 1.525620. [id number] 85 3.615.0.1 5.0.212 59 6598-02-10 2014-09-11 Inpatient [facility] [id number] Memoria 03:13:00 21:20:00 r Arnold 40 [facility] 2014-09-08 2014-09-11 Outpatient Nelson, 2.16.840. 2.16.840.1. 3 [id number] 21:13:00 15:20:00 Noemy Julia 1.389968. [id number] 40 3.615.0.1 5.0.804 08 8844-02-10 2014-09-09 [facility] [id number] Memoria 01:20:00 01:20:00 Emergency r Arnold 00 [facility] 2014-09-08 2014-09-08 Outpatient Anthonytori, 2.16.840. 2.16.840.1 . [id number] 19:20:00 19:20:00 Rebecca 1.341622. [id number] 00 Vickie 3.615.0.1 5.0.218 27 5070-02-04 2014-09-03 OBS Day nullFlavo [facility] [id number] Memoria 11:53:00 16:33:00 Surgery [facility] 01 [facility] 2014-09-03 2014-09-03 Outpatient [place], 2.16.840. 2.16.840.1. 4 [id number] 05:53:00 10:33:00 Merlin Templeton 1.841220. [id number] 01 3.615.0.1 5.0.867 49 5917-05-17 2012-12-21 [facility] [place] [id number] [facility] 17:04:00 13:15:00 [place] [address] l [place] Results Test Description Test Time Test Comments Results Result Comments Source POC-Glucose meter 2022-12-09 00:10:43 Test Item Value Reference Range Interpretation Comme nts POC-Glucose Meter (test code = 155 mg/dL 70-110 H : TESTED AT [facility] [address] [place] [address] 1538) [place] [address]: Deputy Building Guard/Techni jr ID = [id number] for Leidy Callaway Lab Interpretation (test code = Abnormal 86801-4) [facility] [id number] 00:10:43 Test Item Value Reference Range Interpretation Comments POC-Glucose Meter (test 155 mg/dL 70-110 H : [facility] [address] [place] [address]: Deputy Building Guard/Techni jr ID = [id number] for Leidy Callaway Lab Interpretation (test Abnormal code = 41716-7) [facility] [id number] 00:10:43 Test Item Value Reference Range Interpretation Comments POC-Glucose Meter (test 155 mg/dL 70-110 H : [facility] [address] [place] [address]: Deputy Building Guard/Techni jr ID = [id number] for Leidy Callaway Lab Interpretation (test Abnormal code = 49610-6) [facility] [id number] 00:10:43 Test Item Value Reference Range Interpretation Comments POC-Glucose Meter (test 155 mg/dL 70-110 H : [facility]38[facility] [address] [place] [address]: Deputy Building Guard/Techni jr ID = [id number] for Callaway, Leidy Lab Interpretation (test Abnormal code = 34256-2) [facility] [id number] 00:10:43 Test Item Value Reference Range Interpretation Comments POC-Glucose Meter (test 155 mg/dL 70-110 H : TE STED AT [facility] code = 1538) [address] [place] [address]: Deputy Building Guard/Techni jr ID = [id number] for Callaway, Leidy Lab Interpretation (test Abnormal code = 05545-1) [facility] [id number] 00:10:43 Test Item Value Reference Range Interpretation Comments POC-Glucose Meter (test 155 mg/dL 70-110 H : TE STED AT [facility] code = 1538) [address] [place] [address]: Deputy Building Guard/Techni jr ID = [id number] for Callaway, Leidy Lab Interpretation (test Abnormal code = 83734-7) [facility]-Glucose [id number] 00:10:43 Test Item Value Reference Range Interpretation Comments POC-Glucose Meter (test 155 mg/dL 70-110 H : TE STED AT SLSL code = 1538) [address] [place] [address]: Deputy Building Guard/Techni jr ID = [id number] for Brenna Callawayy Lab Interpretation (test Abnormal code = 37157-2) [facility] [id number] 00:10:43 Test Item Value Reference Range Interpretation Comments POC-Glucose Meter (test 155 mg/dL 70-110 H : TE STED AT SLSL code = 1538) [address] [place] [address]: Deputy Building Guard/Techni jr ID = [id number] for Callaway, Leidy Lab Interpretation (test Abnormal code = 38844-9) [facility] [id number] 00:10:43 Test Item Value Reference Range Interpretation Comments POC-Glucose Meter (test 155 mg/dL 70-110 H : TE STED AT SLSL code = 1538) [address] [place], [place] [address]: Deputy Building Guard/Techni jr ID = [id number] for Callaway, Leidy Lab Interpretation (test Abnormal code = 43116-0) [facility] [id number] 00:10:43 Test Item Value Reference Range Interpretation Comments POC-Glucose Meter (test 155 mg/dL 70-110 H : TE STED AT SLSL code = 1538) [address] [place], [place] [address]: Deputy Building Guard/Techni jr ID = [id number] for Callaway, Leidy Lab Interpretation (test Abnormal code = 39049-8) [facility] [id number] 00:10:43 Test Item Value Reference Range Interpretation Comments POC-Glucose Meter (test 155 mg/dL 70-110 H : TE STED AT SLSL code = 1538) [address] [place], [place] [address]: Deputy Building Guard/Techni jr ID = [id number] for Callaway, Leidy Lab Interpretation (test Abnormal code = 92966-1) [facility]-Glucose [id number] 00:10:43 Test Item Value Reference Range Interpretation Comments POC-Glucose Meter (test 155 mg/dL 70-110 H : TE STED AT SLSL code = 1538) [address] [place], [place] [address]: Deputy Building Guard/Techni jr ID = [id number] for Callaway Leidy Lab Interpretation (test Abnormal code = 02183-5) [facility] [id number] 00:10:43 Test Item Value Reference Range Interpretation Comments POC-Glucose Meter (test 155 mg/dL 70-110 H : TE STED AT SLSL code = 1538) [address] [place], [place] [address]: Deputy Building Guard/Techni jr ID = [id number] for Callaway, Leidy Lab Interpretation (test Abnormal code = 18276-3) [facility] [id number] 00:10:43 Test Item Value Reference Range Interpretation Comments POC-Glucose Meter (test 155 mg/dL 70-110 H : TE STED AT SLSL code = 1538) [address] [place], [place] [address]: Deputy Building Guard/Techni jr ID = [id number] for Callaway, Leidy Lab Interpretation (test Abnormal code = 12118-5) [facility] [id number] 00:10:43 Test Item Value Reference Range Interpretation Comments POC-Glucose Meter (test 155 mg/dL 70-110 H : TE STED AT SLSL code = 1538) [facility] [place] [address]: Deputy Building Guard/Techni jr ID = [id number] for Leidy Callaway Lab Interpretation (test Abnormal code = 59548-3) [facility] [id number] 00:10:43 Test Item Value Reference Range Interpretation Comments POC-Glucose Meter (test 155 mg/dL 70-110 H : TE STED AT SLSL code = 1538) [address] [place], [place] [address]: Deputy Building Guard/Techni jr ID = [id number] for Leidy Callaway Lab Interpretation (test Abnormal code = 22360-8) [facility] niawr7986-82-88 00:10:43 Test Item Value Reference Range Interpretation Comments POC-Glucose Meter (test 155 mg/dL 70-110 H : [facility] [address] [place], [place] [address]: Deputy Building Guard/Techni jr ID = [id number] for Leidy Callaway Lab Interpretation (test Abnormal code = 60164-1) [facility]-GLUCOSE [id number] 00:10:43 Test Item Value Reference Range Interpretation Comments POC-GLUCOSE METER 155 mg/dL 70-110 H : TESTED A T SLSL 1317 (BEAKER) (test code [facility] [address] [facility], = 1538) [place] [address]: Deputy Building Guard/Techni jr ID = [id number] for Leidy Forte POCT-GLUCOSE [id number] 00:10:38 Test Item Value Reference Range Interpretation Comments POC-GLUCOSE METER 164 mg/dL 70-110 H : TESTED A T SLSL 1317 (BEAKER) (test code [address], = 1538) [place] [address]: Deputy Building Guard/Techni jr ID = [id number] for Nadia Galvan BASIC METABOLIC [id number] 06:50:20 Test Item Value Reference Range Interpretation [...] eGF R is based on the CKD-EPI 1 equation that d oes not use a race coefficientEsti mated GFR is not as accur ate as Creatinine Genevieve naidu in predicting glom erular filtration rate . Estimated GFR is not appl icable for dialysis patien ts Deputy Building Guard ID - [id number] ID - CEQT67Pwqoirbv ID - WOOQ45Lpgogtts ID - VQKB60Rgfwyolk ID - HVWT63Nzwxyfww ID - LHSH01Sfnnqode ID - QTDF59Aowbhyhc ID - DGTE81Edegrgqs ID - XHYS79Fvcufqtp ID - [id number] 06:44:55 Test Item Value Reference Range Interpretation Comments MAGNESIUM (BEAKER) (test code = 2.1 mg/dL 1.5-3.0 627) Deputy Building Guard ID - [id number] ID - HPZB98Nhapptyd ID - TOJR70Otecoxqq ID - [id number] 06:42:09 Test Item Value Reference Range Interpretation Comments PHOSPHORUS (BEAKER) (test code = 3.5 mg/dL 2.5-4.5 604) Deputy Building Guard ID - [id number] W/PLT COUNT & AUTO [id number] 06:27:09 Test Item Value Reference Range Interpretation [...] PERCENT (BEAKER) (test code = 2801) POCT-GLUCOSE [id number] 01:26:06 Test Item Value Reference Range Interpretation Comments POC-GLUCOSE METER 226 mg/dL 70-110 H : TESTED A T SLSL 1317 (BEAKER) (test code [facility], = 1538) [place] [id number]: Deputy Building Guard/Techni jr ID = [id number] for Nadia Galvan POCT-GLUCOSE [id number] 18:59:16 Test Item Value Reference Range Interpretation Comments POC-GLUCOSE METER 198 mg/dL 70-110 H : TESTED A T SLSL 1317 (BEAKER) (test code [facility], = 1538) [place] [address]: Deputy Building Guard/Techni jr ID = [id number] for Leidy Forte POCT-GLUCOSE [id number] 18:59:09 Test Item Value Reference Range Interpretation Comments POC-GLUCOSE METER 242 mg/dL 70-110 H : TESTED A T SLSL 1317 (BEAKER) (test code [facility], = 1538) [place] [address]: Deputy Building Guard/Techni jr ID = [id number] for Leidy Forte POCT-GLUCOSE [id number] 18:58:25 Test Item Value Reference Range Interpretation Comments POC-GLUCOSE METER 187 mg/dL 70-110 H : TESTED A T SLSL 1317 (BEAKER) (test code [facility], = 1538) [place] [address]: Deputy Building Guard/Techni jr ID = [id number] for Nadia Galvan BLOOD [id number] 07:00:51 Test Item Value Reference Range Interpretation Comments CULTURE (BEAKER) (test No growth in 5 days code = 1095) BLOOD [id number] 07:00:50 Test Item Value Reference Range Interpretation Comments CULTURE (BEAKER) (test No growth in 5 days code = 1095) CBC W/PLT COUNT & AUTO [id number] 04:51:18 Test Item Value Reference Range Interpretation [...] H PERCENT (BEAKER) (test code = 2801) [id number] 04:45:24 Test Item Value Reference Range Interpretation Comments MAGNESIUM (BEAKER) (test code = 2.0 mg/dL 1.5-3.0 627) Deputy Building Guard ID - leviotaOperator ID - leviotaOperator ID - leviotaOperator ID - leviotaBASIC METABOLIC [id number] 04:45:23 Test Item Value Reference Range Interpretation [...] 358) GLUCOSE RANDOM 181 mg/dL 70-110 H (BEAKER) (test code = 652) CALCIUM (BEAKER) 8.8 mg/dL 8.5-10.5 (test code = 697) EGFR (BEAKER) 27 Interpretatio n of eGFR (test code [...] not appl icable for dialysis patien ts Deputy Building Guard ID - leviotaOperator ID - leviotaOperator ID - leviotaOperator ID - leviotaOperator ID - leviotaOperator ID - leviotaOperator ID - leviotaOperator ID - leviotaOperator ID - leviotaOperator ID - ebyeznzITENJYXTKU5556-74-87 04:42:43 Test Item Value Reference Range Interpretation Comments PHOSPHORUS (BEAKER) (test code = 2.9 mg/dL 2.5-4.5 604) Deputy Building Guard ID - leviotaPOCT-GLUCOSE [id number] 01:54:05 Test Item Value Reference Range Interpretation Comments POC-GLUCOSE METER 214 mg/dL 70-110 H : TESTED A T SLSL 1317 (BEAKER) (test code [facility], = 1538) [place] [id number]: Deputy Building Guard/Techni jr ID = [id number] for Melina Mathewsence POCT-GLUCOSE [id number] 16:19:30 Test Item Value Reference Range Interpretation Comments POC-GLUCOSE METER 308 mg/dL 70-110 H : TESTED A T SLSL 1317 (BEAKER) (test code [address] [facility], = 1538) [place] [address]: Deputy Building Guard/Techni jr ID = [id number] for Will iams, Brandi POCT-GLUCOSE [id number] 12:34:45 Test Item Value Reference Range Interpretation Comments POC-GLUCOSE METER 325 mg/dL 70-110 H : TESTED A T SLSL 1317 (BEAKER) (test code [facility], = 1538) [place] [address]: Deputy Building Guard/Techni jr ID = [id number] for Will iams, Brandi POC-Glucose bcufv2231-02-57 06:52:20 Test Item Value Reference Range Interpretation Comments POC-Glucose Meter (test 302 mg/dL 70-110 H : TE STED AT SLSL code = 1538) [address] [place] [address]: Deputy Building Guard/Techni jr ID = [id number] for Nadia Monet Lab Interpretation (test Abnormal code = 27278-0) [facility] [id number] 06:52:20 Test Item Value Reference Range Interpretation Comments POC-Glucose Meter (test 302 mg/dL 70-110 H : TE STED AT SLSL code = 1538) [address] [place], [place] [address]: Deputy Building Guard/Techni jr ID = [id number] for Tierney, Nadia Lab Interpretation (test Abnormal code = 28130-0) [facility] [id number] 06:52:20 Test Item Value Reference Range Interpretation Comments POC-GLUCOSE METER 302 mg/dL 70-110 H : TESTED A T SLSL 1317 (BEAKER) (test code [address], = 1538) [facility] [place] [address]: Deputy Building Guard/Techni jr ID = [id number] for Nadia Galvan BASIC METABOLIC [id number] 04:08:51 Test Item Value Reference Range Interpretation [...] (test code = 697) EGFR (BEAKER) 25 Interpretatio n of eGFR (test code = [...] not appl icable for dialysis patien ts Deputy Building Guard ID - [id number] ID - AZXWOJKEP970Kedvvusf ID - RRIBLCVBZ765Qgcqjohd ID - UCAGMDFWQ512Ekdrfgfi ID - UCTLAZTUE603Htyxtxhb ID - EWSUVFKDZ863Lmhvyyrb ID - DDRUUEXGH355Tpvdaqwp ID - YHUSYAEGD667Aleotytx ID - LDUXMTMKL955Nhwssjay ID - VGOIVIDAP491NOEADRVRZ6478-62-90 04:08:40 Test Item Value Reference Range Interpretation Comments MAGNESIUM (BEAKER) (test code = 2.1 mg/dL 1.5-3.0 627) Deputy Building Guard ID - [id number] ID - ELKIXCUJW403Kxvxfnlp ID - IIARQJLLW322Bzycvxhs ID - [id number]4-28 04:05:54 Test Item Value Reference Range Interpretation Comments PHOSPHORUS (BEAKER) (test code = 2.9 mg/dL 2.5-4.5 604) Deputy Building Guard ID - [id number] W/PLT COUNT & AUTO [id number] 04:00:54 Test Item Value Reference Range Interpretation [...] PERCENT (BEAKER) (test code = 2801) POCT-GLUCOSE [id number] 00:19:32 Test Item Value Reference Range Interpretation Comments POC-GLUCOSE METER 333 mg/dL 70-110 H : TESTED A T SLSL 1317 (BEAKER) (test code [facility] [address], = 1538) [place] [id number]: Deputy Building Guard/Techni jr ID = [id number] for Nadia Galvan POCT-GLUCOSE [id number] 16:12:22 Test Item Value Reference Range Interpretation Comments POC-GLUCOSE METER 246 mg/dL 70-110 H : TESTED A T SLSL 1317 (BEAKER) (test code [facility] [address], = 1538) [place] [address]: Deputy Building Guard/Techni jr ID = [id number] for Brandi Heart BLOOD [id number] 15:33:40 Test Item Value Reference Range Interpretation Comments CULTURE (BEAKER) A From Aerobi c (test code = 1095) Bottle On ly Gemella bergeri GRAM STAIN RESULT From aerobic (BEAKER) (test bottle only: gram code = 1123) positive cocci in clusters BLOOD [id number] 15:33:06 Test Item Value Reference Range Interpretation [...] bottle only: 1123) gram negative rods POC-Glucose [id number] 12:08:11 Test Item Value Reference Range Interpretation Comments POC-Glucose Meter (test 306 mg/dL 70-110 H : TE STED AT SLSL code = 1538) [facility] [place] [address]: Deputy Building Guard/Techni jr ID = [id number] for John Desai ee Lab Interpretation (test Abnormal code = 79601-7) [facility] fmyfd9570-52-11 12:08:11 Test Item Value Reference Range Interpretation Comments POC-Glucose Meter (test 306 mg/dL 70-110 H : TE STED AT SLSL code = 1538) [facility] [place] [address]: Deputy Building Guard/Techni jr ID = [id number] for John Desai ee Lab Interpretation (test Abnormal code = 96164-0) [facility] gftax3716-99-95 12:08:11 Test Item Value Reference Range Interpretation Comments POC-Glucose Meter (test 306 mg/dL 70-110 H : TE STED AT SLSL code = 1538) [address] [place], [place] [address]: Deputy Building Guard/Techni jr ID = [id number] for John Desai ee Lab Interpretation (test Abnormal code = 61798-8) [facility] vxwvm1560-98-71 12:08:11 Test Item Value Reference Range Interpretation Comments POC-Glucose Meter (test 306 mg/dL 70-110 H : [facility] [place] AT [facility] code = 1538) [address] [facility] [address]: Deputy Building Guard/Techni jr ID = [id number] for John Desai Lab Interpretation (test Abnormal code = 76015-4) [facility] [id number] 12:08:11 Test Item Value Reference Range Interpretation Comments POC-GLUCOSE METER 306 mg/dL 70-110 H : TESTED A T SLSL 1317 (BEAKER) (test code [facility], = 1538) [place] [address]: Deputy Building Guard/Techni jr ID = [id number] for Brandi Heart POCT-GLUCOSE [id number] 08:14:52 Test Item Value Reference Range Interpretation Comments POC-GLUCOSE METER 213 mg/dL 70-110 H : TESTED A T SLSL 1317 (BEAKER) (test code [facility], = 1538) [place] [address]: Deputy Building Guard/Techni jr ID = [id number] for Nadia Galvan (MANUAL DIFFERENTIAL)2022-12-05 05:59:44 Test [...] = 762) CBC W/PLT COUNT & AUTO [id number] 05:59:38 Test Item Value Reference Range Interpretation [...] (BEAKER) (test code = 413) BASIC METABOLIC [id number] 05:59:11 Test Item Value Reference Range Interpretation [...] (test code = 697) EGFR (BEAKER) 24 Interpretatio n of eGFR (test code = [...] not appl icable for dialysis patien ts Deputy Building Guard ID - pigu88Nlquavdr ID - mvoj12Roagsdtw ID - phfc80Docjvwyq ID - idln11Nsdzipcz ID - sslj69Tchjwnxj ID - kbzm39Osskwdxu ID - frjf41Kxjcycgz ID - gbzr37Semwaxet ID - keav89Zrycczix ID - wkzs10GKLENXOWWG LEVEL, [id number] 05:59:00 Test Item Value Reference Range Interpretation Comments VANCOMYCIN TROUGH (BEAKER) (test 20.3 ug/mL 10.0-20.0 H code = 522) Deputy Building Guard ID - [id number] 05:56:35 Test Item Value Reference Range Interpretation Comments MAGNESIUM (BEAKER) (test code = 2.1 mg/dL 1.5-3.0 627) Deputy Building Guard ID - lnyk62Suybmaph ID - pope52Mpbqxubb ID - jvfv07Uuyltfku ID - znmp04 CRXEPXMAXF2341-43-95 05:53:54 Test Item Value Reference Range Interpretation Comments PHOSPHORUS (BEAKER) (test code = 3.4 mg/dL 2.5-4.5 604) Deputy Building Guard ID - dumy24EKQX-XJEWRJY HJDYJ2884-16-20 23:58:06 Test Item Value Reference Range Interpretation Comments POC-GLUCOSE METER 309 mg/dL 70-110 H : TESTED A T SLSL 1317 (BEAKER) (test code [facility], = 1538) [place] [address]: Deputy Building Guard/Techni jr ID = [id number] for Martha Galvany POCT-GLUCOSE [id number] 18:21:56 Test Item Value Reference Range Interpretation Comments POC-GLUCOSE METER 244 mg/dL 70-110 H : TESTED A T SLSL 1317 (BEAKER) (test code [facility], = 1538) [place] [address]: Deputy Building Guard/Techni jr ID = [id number] for Dapr emont, Mariana POCT-GLUCOSE [id number] 13:25:33 Test Item Value Reference Range Interpretation Comments POC-GLUCOSE METER 179 mg/dL 70-110 H : TESTED A T SLSL 1317 (BEAKER) (test code [address] [facility], = 1538) [place] [address]: Deputy Building Guard/Techni jr ID = [id number] for Dapr emont, Mariana POCT-GLUCOSE [id number] 06:39:58 Test Item Value Reference Range Interpretation Comments POC-GLUCOSE METER 312 mg/dL 70-110 H : TESTED A T SLSL 1317 (BEAKER) (test code [facility], = 1538) [place] [address]: Deputy Building Guard/Techni jr ID = [id number] for Nadia Galvan BASIC METABOLIC [id number] 05:53:12 Test Item Value Reference Range Interpretation [...] (test code = 697) EGFR (BEAKER) 23 Interpretatio n of eGFR (test code = [...] not appl icable for dialysis patien ts Deputy Building Guard ID - [id number] ID - QAXGWYJZY058Yeyatrpr ID - RPGTGVCVL379Henqynms ID - HGOSALAMU108Gaazvoma ID - VSLCBDLYC251Nupuzowx ID - WIWXRJEFK067Fbibdvph ID - RITZLXIHY654Uqfkcdjs ID - URRLIMJBQ504Tceecgvw ID - SGNMZRDMW169Gwqdypnk ID - HKYPXULPW146IDDPTNWTK6588-78-71 05:46:02 Test Item Value Reference Range Interpretation Comments MAGNESIUM (BEAKER) (test code = 2.0 mg/dL 1.5-3.0 627) Deputy Building Guard ID - FZAZLZCDX371Aeggmxep ID - FIEOHBMZM036Xorqcdkk ID - OPETCYCJO689Bhfoftuq ID - FTPWBUGQJ460IKFBKBICHN2876-55-77 05:43:39 Test Item Value Reference Range Interpretation Comments PHOSPHORUS (BEAKER) (test code = 1.8 mg/dL 2.5-4.5 L 604) Deputy Building Guard ID - [id number] W/PLT COUNT & AUTO YINITRCPQPVV1301-21-70 05:33:07 Test Item Value Reference Range Interpretation [...] PERCENT (BEAKER) (test code = 2801) POCT-GLUCOSE [id number] 00:14:04 Test Item Value Reference Range Interpretation Comments POC-GLUCOSE METER 355 mg/dL 70-110 H : TESTED A T SLSL 1317 (BEAKER) (test code [address], = 1538) [place] [address]: Deputy Building Guard/Techni jr ID = [id number] for Nadia Galvan POCT-GLUCOSE [id number] 18:34:58 Test Item Value Reference Range Interpretation Comments POC-GLUCOSE METER 319 mg/dL 70-110 H : TESTED A T SLSL 1317 (BEAKER) (test code [address], = 1538) [place] [address]: Deputy Building Guard/Techni jr ID = [id number] for Nu Topete Urine Ppukqzd3847-80-10 12:12:34 Test Item Value Reference Range Interpretation Comments Result (test code = 70-79,000 col/mL A 6463-4) Jeanne albicans OSBALDO (test code = OSBALDO) If your patient does not have signs or symptoms of UTI, it is recommended NOT to treat, with the exception of and prior to urologic procedures. Lab Interpretation (test Abnormal code = 07885-2) [facility] Enzqocb1849-02-81 12:12:34 Test Item Value Reference Range Interpretation Comments Result (test code = 70-79,000 col/mL A 6463-4) Jeanne albicans OSBALDO (test code = OSBALDO) If your patient does not have signs or symptoms of UTI, it is recommended NOT to treat, with the exception of and prior to urologic procedures. Lab Interpretation (test Abnormal code = 77400-9) [facility] Wtekpor0460-94-82 12:12:34 Test Item Value Reference Range Interpretation Comments Result (test code = 70-79,000 col/mL A 6463-4) Jeanne albicans OSBALDO (test code = OSBALDO) If your patient does not have signs or symptoms of UTI, it is recommended NOT to treat, with the exception of and prior to urologic procedures. Lab Interpretation (test Abnormal code = 00947-8) [facility] Jdmztkh6327-83-84 12:12:34 Test Item Value Reference Range Interpretation Comments Result (test code = 70-79,000 col/mL A 6463-4) Jeanne albicans OSBALDO (test code = OSBALDO) If your patient does not have signs or symptoms of UTI, it is recommended NOT to treat, with the exception of and prior to urologic procedures. Lab Interpretation (test Abnormal code = 48781-8) [facility] Gtosdat0891-14-69 12:12:34 Test Item Value Reference Range Interpretation Comments Result (test code = 70-79,000 col/mL A 6463-4) Jeanne albicans OSBALDO (test code = OSBALDO) If your patient does not have signs or symptoms of UTI, it is recommended NOT to treat, with the exception of and prior to urologic procedures. Lab Interpretation (test Abnormal code = 44268-1) [facility] Pwobsgv3376-32-33 12:12:34 Test Item Value Reference Range Interpretation Comments Result (test code = 70-79,000 col/mL A 6463-4) Jeanne albicans OSBALDO (test code = OSBALDO) If your patient does not have signs or symptoms of UTI, it is recommended NOT to treat, with the exception of and prior to urologic procedures. Lab Interpretation (test Abnormal code = 78299-7) [facility] Bcvjzdq1735-15-76 12:12:34 Test Item Value Reference Range Interpretation Comments Result (test code = 70-79,000 col/mL A 6463-4) Jeanne albicans OSBALDO (test code = OSBALDO) If your patient does not have signs or symptoms of UTI, it is recommended NOT to treat, with the exception of and prior to urologic procedures. Lab Interpretation (test Abnormal code = 01765-0) [facility] Xzrvkrj6114-02-93 12:12:34 Test Item Value Reference Range Interpretation Comments Result (test code = 70-79,000 col/mL A 6463-4) Jeanne albicans OSBALDO (test code = OSBALDO) If your patient does not have signs or symptoms of UTI, it is recommended NOT to treat, with the exception of and prior to urologic procedures. Lab Interpretation (test Abnormal code = 27130-2) [facility] Wsdcerb5876-58-74 12:12:34 Test Item Value Reference Range Interpretation Comments Result (test code = 70-79,000 col/mL A 6463-4) Jeanne albicans OSBALDO (test code = OSBALDO) If your patient does not have signs or symptoms of UTI, it is recommended NOT to treat, with the exception of and prior to urologic procedures. Lab Interpretation (test Abnormal code = 05829-5) [facility] Zsogxws0399-47-75 12:12:34 Test Item Value Reference Range Interpretation Comments Result (test code = 70-79,000 col/mL A 6463-4) Jeanne albicans OSBALDO (test code = OSBALDO) If your patient does not have signs or symptoms of UTI, it is recommended NOT to treat, with the exception of and prior to urologic procedures. Lab Interpretation (test Abnormal code = 83181-9) [facility] Qvnyurg2843-17-45 12:12:34 Test Item Value Reference Range Interpretation Comments Result (test code = 70-79,000 col/mL A 6463-4) Jeanne albicans OSBALDO (test code = OSBALDO) If your patient does not have signs or symptoms of UTI, it is recommended NOT to treat, with the exception of and prior to urologic procedures. Lab Interpretation (test Abnormal code = 24990-6) [facility] Volmpwu5600-50-50 12:12:34 Test Item Value Reference Range Interpretation Comments Result (test code = 70-79,000 col/mL A 6463-4) Jeanne albicans OSBALDO (test code = OSBALDO) If your patient does not have signs or symptoms of UTI, it is recommended NOT to treat, with the exception of and prior to urologic procedures. Lab Interpretation (test Abnormal code = 09472-8) [facility] Gbodrkv2889-43-66 12:12:34 Test Item Value Reference Range Interpretation Comments Result (test code = 70-79,000 col/mL A 6463-4) Jeanne albicans OSBALDO (test code = OSBALDO) If your patient does not have signs or symptoms of UTI, it is recommended NOT to treat, with the exception of and prior to urologic procedures. Lab Interpretation (test Abnormal code = 50799-3) [facility] Anakotb0859-74-59 12:12:34 Test Item Value Reference Range Interpretation Comments Result (test code = 70-79,000 col/mL A 6463-4) Jeanne albicans OSBALDO (test code = OSBALDO) If your patient does not have signs or symptoms of UTI, it is recommended NOT to treat, with the exception of and prior to urologic procedures. Lab Interpretation (test Abnormal code = 86610-2) [facility] Ugyeaoe7658-67-84 12:12:34 Test Item Value Reference Range Interpretation Comments Result (test code = 70-79,000 col/mL A 6463-4) Jeanne albicans OSBALDO (test code = OSBALDO) If your patient does not have signs or symptoms of UTI, it is recommended NOT to treat, with the exception of and prior to urologic procedures. Lab Interpretation (test Abnormal code = 49853-9) [facility] Ummunqh2020-48-00 12:12:34 Test Item Value Reference Range Interpretation Comments Result (test code = 70-79,000 col/mL A 6463-4) Jeanne albicans OSBALDO (test code = OSBALDO) If your patient does not have signs or symptoms of UTI, it is recommended NOT to treat, with the exception of and prior to urologic procedures. Lab Interpretation (test Abnormal code = 43139-0) [facility] Mqzszau9693-20-73 12:12:34 Test Item Value Reference Range Interpretation Comments Result (test code = 70-79,000 col/mL A 6463-4) Jeanne albicans OSBALDO (test code = OSBALDO) If your patient does not have signs or symptoms of UTI, it is recommended NOT to treat, with the exception of and prior to urologic procedures. Lab Interpretation (test Abnormal code = 65076-5) [facility] Bgdiyqm1231-83-55 12:12:34 Test Item Value Reference Range Interpretation Comments Result (test code = 70-79,000 col/mL A 6463-4) Jeanne albicans OSBALDO (test code = OSBALDO) If your patient does not have signs or symptoms of UTI, it is recommended NOT to treat, with the exception of and prior to urologic procedures. Lab Interpretation (test Abnormal code = 09741-2) [facility] Qdmpycl6132-43-51 12:12:34 Test Item Value Reference Range Interpretation Comments Result (test code = 70-79,000 col/mL A 6463-4) Jeanne albicans OSBALDO (test code = OSBALDO) If your patient does not have signs or symptoms of UTI, it is recommended NOT to treat, with the exception of and prior to urologic procedures. Lab Interpretation (test Abnormal code = 66574-4) [facility] Hvrtltq4326-00-27 12:12:34 Test Item Value Reference Range Interpretation Comments Result (test code = 70-79,000 col/mL A 6463-4) Jeanne albicans OSBALDO (test code = OSBALDO) If your patient does not have signs or symptoms of UTI, it is recommended NOT to treat, with the exception of and prior to urologic procedures. Lab Interpretation (test Abnormal code = 72193-7) [facility] Fzzfjgy2461-54-79 12:12:34 Test Item Value Reference Range Interpretation Comments Result (test code = 70-79,000 col/mL A 6463-4) Jeanne albicans OSBALDO (test code = OSBALDO) If your patient does not have signs or symptoms of UTI, it is recommended NOT to treat, with the exception of and prior to urologic procedures. Lab Interpretation (test Abnormal code = 14704-7) [facility] Gbfzswt7739-25-27 12:12:34 Test Item Value Reference Range Interpretation Comments Result (test code = 70-79,000 col/mL A 6463-4) Jeanne albicans OSBALDO (test code = OSBALDO) If your patient does not have signs or symptoms of UTI, it is recommended NOT to treat, with the exception of and prior to urologic procedures. Lab Interpretation (test Abnormal code = 27290-9) [facility] Cwblzpy3304-27-50 12:12:34 Test Item Value Reference Range Interpretation Comments Result (test code = 70-79,000 col/mL A 6463-4) Jeanne albicans OSBALDO (test code = OSBALDO) If your patient does not have signs or symptoms of UTI, it is recommended NOT to treat, with the exception of and prior to urologic procedures. Lab Interpretation (test Abnormal code = 47719-2) [facility] [id number] 12:12:34 Test Item Value Reference Range Interpretation Comments CULTURE (BEAKER) (test A 70-79 ,000 col/mL Jeanne code = 1095) albicans If your patient does not have signs or symptoms of UTI, it is recommended NOT to treat, with the exception of and prior to urologic procedures.POCT- GLUCOSE [id number] 11:45:37 Test Item Value Reference Range Interpretation Comments POC-GLUCOSE METER 269 mg/dL 70-110 H : TESTED A T [address] (BEAKER) (test code [address], = 1538) [facility] 77 478: Deputy Building Guard/Techni jr ID = [id number] for Madai Bennett MRSA [id number] 10:08:11 Test Item Value Reference Range Interpretation Comments Result (test code = 3+ Methicillin A 6463-4) resistant Staphylococcus aureus Lab Interpretation Abnormal (test code = 18868-9) [facility] gokuyq1359-87-56 10:08:11 Test Item Value Reference Range Interpretation Comments Result (test code = 3+ Methicillin A 6463-4) resistant Staphylococcus aureus Lab Interpretation Abnormal (test code = 00474-7) [facility] qyvppb4560-86-50 10:08:11 Test Item Value Reference Range Interpretation Comments Result (test code = 3+ Methicillin A 6463-4) resistant Staphylococcus aureus Lab Interpretation Abnormal (test code = 01515-3) [facility] vinbyu8041-08-66 10:08:11 Test Item Value Reference Range Interpretation Comments Result (test code = 3+ Methicillin A 6463-4) resistant Staphylococcus aureus Lab Interpretation Abnormal (test code = 25091-0) [facility] vrdfpi7439-59-86 10:08:11 Test Item Value Reference Range Interpretation Comments Result (test code = 3+ Methicillin A 6463-4) resistant Staphylococcus aureus Lab Interpretation Abnormal (test code = 64624-0) [facility] neovqp9783-27-30 10:08:11 Test Item Value Reference Range Interpretation Comments Result (test code = 3+ Methicillin A 6463-4) resistant Staphylococcus aureus Lab Interpretation Abnormal (test code = 85036-0) [facility] [id number] 10:08:11 Test Item Value Reference Range Interpretation Comments Result (test code = 3+ Methicillin A 6463-4) resistant Staphylococcus aureus Lab Interpretation Abnormal (test code = 80383-7) [facility] wewozy4714-81-28 10:08:11 Test Item Value Reference Range Interpretation Comments Result (test code = 3+ Methicillin A 6463-4) resistant Staphylococcus aureus Lab Interpretation Abnormal (test code = 36984-6) [facility] obyrns8818-05-36 10:08:11 Test Item Value Reference Range Interpretation Comments Result (test code = 3+ Methicillin A 6463-4) resistant Staphylococcus aureus Lab Interpretation Abnormal (test code = 98650-7) [facility] [id number] 10:08:11 Test Item Value Reference Range Interpretation Comments Result (test code = 3+ Methicillin A 6463-4) resistant Staphylococcus aureus Lab Interpretation Abnormal (test code = 96184-9) [facility] hzfedn4895-24-72 10:08:11 Test Item Value Reference Range Interpretation Comments Result (test code = 3+ Methicillin A 6463-4) resistant Staphylococcus aureus Lab Interpretation Abnormal (test code = 85605-6) [facility] [id number] 10:08:11 Test Item Value Reference Range Interpretation Comments Result (test code = 3+ Methicillin A 6463-4) resistant Staphylococcus aureus Lab Interpretation Abnormal (test code = 55778-8) [facility] [id number] 10:08:11 Test Item Value Reference Range Interpretation Comments Result (test code = 3+ Methicillin A 6463-4) resistant Staphylococcus aureus Lab Interpretation Abnormal (test code = 14795-2) [facility] gcislm3198-55-40 10:08:11 Test Item Value Reference Range Interpretation Comments Result (test code = 3+ Methicillin A 6463-4) resistant Staphylococcus aureus Lab Interpretation Abnormal (test code = 00204-3) [facility] fzwanw2421-16-56 10:08:11 Test Item Value Reference Range Interpretation Comments Result (test code = 3+ Methicillin A 6463-4) resistant Staphylococcus aureus Lab Interpretation Abnormal (test code = 76975-2) [facility] lgznbf4845-15-08 10:08:11 Test Item Value Reference Range Interpretation Comments Result (test code = 3+ Methicillin A 6463-4) resistant Staphylococcus aureus Lab Interpretation Abnormal (test code = 26210-7) [facility] huukea9517-40-49 10:08:11 Test Item Value Reference Range Interpretation Comments Result (test code = 3+ Methicillin A 6463-4) resistant Staphylococcus aureus Lab Interpretation Abnormal (test code = 22718-2) [facility] zwvppg8117-34-66 10:08:11 Test Item Value Reference Range Interpretation Comments Result (test code = 3+ Methicillin A 6463-4) resistant Staphylococcus aureus Lab Interpretation Abnormal (test code = 15057-5) [facility] gwwobf8154-69-12 10:08:11 Test Item Value Reference Range Interpretation Comments Result (test code = 3+ Methicillin A 6463-4) resistant Staphylococcus aureus Lab Interpretation Abnormal (test code = 00920-0) [facility] lxoipv8353-15-11 10:08:11 Test Item Value Reference Range Interpretation Comments Result (test code = 3+ Methicillin A 6463-4) resistant Staphylococcus aureus Lab Interpretation Abnormal (test code = 67603-6) [facility] kuuzbw7564-37-40 10:08:11 Test Item Value Reference Range Interpretation Comments Result (test code = 3+ Methicillin A 6463-4) resistant Staphylococcus aureus Lab Interpretation Abnormal (test code = 52615-8) [facility] bgskge9698-68-59 10:08:11 Test Item Value Reference Range Interpretation Comments Result (test code = 3+ Methicillin A 6463-4) resistant Staphylococcus aureus Lab Interpretation Abnormal (test code = 86742-6) [facility] bkieob4898-07-50 10:08:11 Test Item Value Reference Range Interpretation Comments Result (test code = 3+ Methicillin A 6463-4) resistant Staphylococcus aureus Lab Interpretation Abnormal (test code = 21423-7) [facility] [id number] 10:08:11 Test Item Value Reference Range Interpretation Comments CULTURE (BEAKER) A 3+ Methicil lulu resistant (test code = 1095) Staphyloc occus aureus POCT-GLUCOSE [id number] 06:04:57 Test Item Value Reference Range Interpretation Comments POC-GLUCOSE METER 247 mg/dL 70-110 H : TESTED A T [address] (BEAKER) (test code [address], = 1538) [facility] 77 478: Deputy Building Guard/Techni jr ID = [id number] for Jennifer Mathews BASIC METABOLIC [id number] 04:56:39 Test Item Value Reference Range Interpretation [...] not appl icable for dialysis patien ts Deputy Building Guard ID - [id number] ID - KEDF67Ovbagkep ID - AQEH00Nsxtdncy ID - DXNI66Dggqehoe ID - TVWY15Kjbasvor ID - EKMM30Tvqqmlzg ID - ZAUP31Zqroxcrc ID - SCIP75Rmpflbcp ID - GTRD81Rxkblhnd ID - [id number](MANUAL DIFFERENTIAL)2022-12-03 04:55:48 Test Item [...] = 762) CBC W/PLT COUNT & AUTO [id number] 04:55:42 Test Item Value Reference Range Interpretation [...] (BEAKER) (test code = 413) VANCOMYCIN LEVEL, [id number] 04:50:29 Test Item Value Reference Range Interpretation Comments VANCOMYCIN TROUGH (BEAKER) (test 18.7 ug/mL 10.0-20.0 code = 522) Deputy Building Guard ID - [id number] 04:47:24 Test Item Value Reference Range Interpretation Comments MAGNESIUM (BEAKER) (test code = 2.3 mg/dL 1.5-3.0 627) Deputy Building Guard ID - [id number] ID - [id number] ID - [id number] ID - [id number] DDNLLBNZQM6467-09-05 04:44:23 Test Item Value Reference Range Interpretation Comments PHOSPHORUS (BEAKER) (test code = 1.8 mg/dL 2.5-4.5 L 604) Deputy Building Guard ID - [id number] 23:25:21 Test Item Value Reference Range Interpretation Comments POC-GLUCOSE METER 213 mg/dL 70-110 H : TESTED A T [address] (BEAKER) (test code [address], = 1538) [place] [id number]: Deputy Building Guard/Techni jr ID = [id number] for Win gary, Jennifer POCT-GLUCOSE [id number] 20:38:48 Test Item Value Reference Range Interpretation Comments POC-GLUCOSE METER 191 mg/dL 70-110 H : TESTED A T [address] (BEAKER) (test code [address], = 1538) [place] [id number]: Deputy Building Guard/Techni jr ID = [id number] for Ukkaren (TXFlr), Camryn POCT-GLUCOSE [id number] 18:51:33 Test Item Value Reference Range Interpretation Comments POC-GLUCOSE METER 186 mg/dL 70-110 H : TESTED A T [address] (BEAKER) (test code [address], = 1538) [place] [address]: Deputy Building Guard/Techni jr ID = [id number] for Malick lar, Madai FL, ESOPH, SWALLOW FUNCTION, WITH CINE OR [id number] 15:13:00Reason for exam:->[facility] 1965 Sex: MFINAL REPORT EXAMINATION: Modified barium swallow study INDICATION: failed swallow eval COMPARISON: None. TECHNIQUE: The examination was performed in conjunction with speech pathology. Varying consistencies of barium was administered under lateral fluoroscopic observation. Fluoroscopy time: 147.7 secondsDose: 8.17 mGyNumber of Images: 18 IMPRESSION:Please refer to speech pathologist's note from same date for further description. Signed: Betzy Mcnamara MDReport Verified Date/Time: 12/02/2022 15:13:13 Reading Location: [facility] Radiology Reading Room Sputum Culture + Gram [id number] 13:44:14 Test Item Value Reference Range Interpretation Comments Result (test code = <1+ Normal respiratory 6463-4) eula present Gram Stain Result <1+ Mixed eula (test code = 1123) [facility] [id number] 13:44:14 Test Item Value Reference Range Interpretation Comments Result (test code = <1+ Normal respiratory 6463-4) eula present Gram Stain Result <1+ Mixed eula (test code = 1123) [facility] [id number] 13:44:14 Test Item Value Reference Range Interpretation Comments Result (test code = <1+ Normal respiratory 6463-4) eula present Gram Stain Result <1+ Mixed eula (test code = 1123) [facility] [id number] 13:44:14 Test Item Value Reference Range Interpretation Comments Result (test code = <1+ Normal respiratory 6463-4) eula present Gram Stain Result <1+ Mixed eula (test code = 1123) [facility] [id number] 13:44:14 Test Item Value Reference Range Interpretation Comments Result (test code = <1+ Normal respiratory 6463-4) eula present Gram Stain Result <1+ Mixed eula (test code = 1123) [facility] [id number] 13:44:14 Test Item Value Reference Range Interpretation Comments Result (test code = <1+ Normal respiratory 6463-4) eula present Gram Stain Result <1+ Mixed eula (test code = 1123) [facility] [id number] 13:44:14 Test Item Value Reference Range Interpretation Comments Result (test code = <1+ Normal respiratory 6463-4) eula present Gram Stain Result <1+ Mixed eula (test code = 1123) [facility] [id number] 13:44:14 Test Item Value Reference Range Interpretation Comments Result (test code = <1+ Normal respiratory 6463-4) eula present Gram Stain Result <1+ Mixed eula (test code = 1123) [facility] [id number] 13:44:14 Test Item Value Reference Range Interpretation Comments Result (test code = <1+ Normal respiratory 6463-4) eula present Gram Stain Result <1+ Mixed eula (test code = 1123) [facility] [id number] 13:44:14 Test Item Value Reference Range Interpretation Comments Result (test code = <1+ Normal respiratory 6463-4) eula present Gram Stain Result <1+ Mixed eula (test code = 1123) [facility] [id number] 13:44:14 Test Item Value Reference Range Interpretation Comments Result (test code = <1+ Normal respiratory 6463-4) eula present Gram Stain Result <1+ Mixed eula (test code = 1123) [facility] Culture + Gram [id number] 13:44:14 Test Item Value Reference Range Interpretation Comments Result (test code = <1+ Normal respiratory 6463-4) eula present Gram Stain Result <1+ Mixed eula (test code = 1123) [facility] [id number] 13:44:14 Test Item Value Reference Range Interpretation Comments Result (test code = <1+ Normal respiratory 6463-4) eula present Gram Stain Result <1+ Mixed eula (test code = 1123) [facility] [id number] 13:44:14 Test Item Value Reference Range Interpretation Comments Result (test code = <1+ Normal respiratory 6463-4) eula present Gram Stain Result <1+ Mixed eula (test code = 1123) [facility] Culture + Gram [id number] 13:44:14 Test Item Value Reference Range Interpretation Comments Result (test code = <1+ Normal respiratory 6463-4) eula present Gram Stain Result <1+ Mixed eula (test code = 1123) [facility] Culture + Gram [id number] 13:44:14 Test Item Value Reference Range Interpretation Comments Result (test code = <1+ Normal respiratory 6463-4) eula present Gram Stain Result <1+ Mixed eula (test code = 1123) [facility] Culture + Gram [id number] 13:44:14 Test Item Value Reference Range Interpretation Comments Result (test code = <1+ Normal respiratory 6463-4) eula present Gram Stain Result <1+ Mixed eula (test code = 1123) [facility] Culture + Gram [id number] 13:44:14 Test Item Value Reference Range Interpretation Comments Result (test code = <1+ Normal respiratory 6463-4) eula present Gram Stain Result <1+ Mixed eula (test code = 1123) [facility] Culture + Gram [id number] 13:44:14 Test Item Value Reference Range Interpretation Comments Result (test code = <1+ Normal respiratory 6463-4) eula present Gram Stain Result <1+ Mixed eula (test code = 1123) [facility] Culture + Gram [id number] 13:44:14 Test Item Value Reference Range Interpretation Comments Result (test code = <1+ Normal respiratory 6463-4) eula present Gram Stain Result <1+ Mixed eula (test code = 1123) [facility] [id number] 13:44:14 Test Item Value Reference Range Interpretation Comments Result (test code = <1+ Normal respiratory 6463-4) elua present Gram Stain Result <1+ Mixed eula (test code = 1123) [facility] [id number] 13:44:14 Test Item Value Reference Range Interpretation Comments Result (test code = <1+ Normal respiratory 6463-4) eula present Gram Stain Result <1+ Mixed eula (test code = 1123) [facility] [id number] 13:44:14 Test Item Value Reference Range Interpretation Comments Result (test code = <1+ Normal respiratory 6463-4) eula present Gram Stain Result <1+ Mixed eula (test code = 1123) [facility]AM [id number] 13:44:14 Test Item Value Reference Range Interpretation Comments CULTURE (BEAKER) <1+ Normal respiratory (test code = 1095) eula present GRAM STAIN RESULT 4+ WBCs (BEAKER) (test code = 1123) GRAM STAIN RESULT <1+ epithelial cells (BEAKER) (test code = 28632) GRAM STAIN RESULT <1+ Mixed eula (BEAKER) (test code = 49385) POCT-GLUCOSE [id number] 12:05:25 Test Item Value Reference Range Interpretation Comments POC-GLUCOSE METER 193 mg/dL 70-110 H : TESTED A T [address] (BEAKER) ([facility] [address] [facility] = [facility] [place] [id number]: Deputy Building Guard/Techni jr ID = [id number] for Chac kacheril, Jisha POCT-GLUCOSE [id number] 08:53:14 Test Item Value Reference Range Interpretation Comments POC-GLUCOSE METER 192 mg/dL 70-110 H : TESTED A T [address] (BEAKER) ([facility] [address], = [address]) [place] [id number]: Deputy Building Guard/Techni jr ID = [id number] for Chac kacheril, Jisha POCT-GLUCOSE [id number] 06:45:16 Test Item Value Reference Range Interpretation Comments POC-GLUCOSE METER 189 mg/dL 70-110 H : TESTED A T [address] (BEAKER) (test code [address], = 1538) [facility] 77 478: Deputy Building Guard/Techni jr ID = [id number] for Lenore Philip (MANUAL DIFFERENTIAL)2022-12-02 05:41:42 Test [...] 1+ 961) CBC W/PLT COUNT & AUTO [id number] 05:41:41 Test Item Value Reference Range Interpretation [...] H PERCENT (BEAKER) (test code = 2801) [id number] 04:45:46 Test Item Value Reference Range Interpretation Comments MAGNESIUM (BEAKER) (test code = 2.3 mg/dL 1.5-3.0 627) Deputy Building Guard ID - [id number] ID - [id number] ID - [id number] ID - [id number] METABOLIC [id number] 04:44:58 Test Item Value Reference Range Interpretation [...] not appl icable for dialysis patien ts Deputy Building Guard ID - [id number] ID - JKZOZKJFH339Fknzhjkt ID - XIOAHNETM273Wimlhjfs ID - [id number] ID - LZIECANER805Fdcownhq ID - YRUELSYWA043Bszvtava ID - MOPIJPLGR130Ptjukbyo ID - FJRYFWYEK042Cgsugtqw ID - OPOIGCNPM174Rtboumgf ID - [id number] 04:43:03 Test Item Value Reference Range Interpretation Comments PHOSPHORUS (BEAKER) (test code = 2.6 mg/dL 2.5-4.5 604) Deputy Building Guard ID - [id number] GAS, [id number] 04:14:26 Test Item Value Reference Range Interpretation [...] (BEAKER) (test code = 1819) 21.0 POCT-GLUCOSE [id number] 00:03:21 Test Item Value Reference Range Interpretation Comments POC-GLUCOSE METER 96 mg/dL 70-110 : TESTED A T [address] (BEAKER) (test code = [address], [address]) [place] [address]: Deputy Building Guard/Techni jr ID = [id number] for Sana quacho, Lenore POCT-GLUCOSE [id number] 21:01:56 Test Item Value Reference Range Interpretation Comments POC-GLUCOSE METER 90 mg/dL 70-110 : TESTED A T [address] (BEAKER) (test code = [address], [address]) [place] [address]: Deputy Building Guard/Techni jr ID = [id number] for Sarm iento, Lenore POCT-GLUCOSE [id number] 19:46:14 Test Item Value Reference Range Interpretation Comments POC-GLUCOSE METER 57 mg/dL 70-110 L : TESTED A T [address] (BEAKER) (test code = [address], 1538) [place] [address]: Deputy Building Guard/Techni jr ID = [id number] for Sarm iebellao, Lenore POCT-GLUCOSE [id number] 17:44:14 Test Item Value Reference Range Interpretation Comments POC-GLUCOSE METER 75 mg/dL 70-110 : TESTED A T [address] (BEAKER) (test code = [address], 1538) [facility] 77 478: Deputy Building Guard/Techni jr ID = [id number] for Ho, Nhatrang RAD, CHEST, 1 VIEW, NON [id number] 12:05:00Reason for exam:->hypoxic [facility] 1965 Sex: MFINAL REPORT RAD, CHEST, 1 VIEW, NON DEPT INDICATION: hypoxic COMPARISON: 11/30/2022 FINDINGS: Portable frontal view of the chest. IMPRESSION: Support Lines: Tracheostomy. Lungs and pleura:Hazy bilateral interstitial thickening concerning for airspace disease and/or atypical infection. No significant pneumothorax. Heart and mediastinum: Stable contours. Additional findings: None. Signed:Chuyita Lorenz Verified Date/Time: 12/01/2022 12:05:26 Reading Location: [address] Reading Room 2D Echo W/Doppler(CW/PW/Color)2022-12-01 11:40:38Ejection FractionSLEH ECHO [facility]ART[facility] Echo W/Doppler(CW/PW/Color) 2022-12-01 11:40:38Ejection [facility]SLEH [facility] Echo W/Doppler(CW/PW/Color)2022-12-01 11:40:38[facility] W[facility]Doppler(CW/PW/Color)2022-12-01 11:40:38Ejection FractionSLEH ECHO HEARTLAB [facility]2D Echo W/Doppler(CW/PW/Color) 2022-12-01 11:40:38Ejection FractionSLEH ECHO [facility]ARTLAB [facility] Echo W/Doppler(CW/PW/Color)2022-12-01 11:40:38Ejection [facility]H [facility]CW/PW/Color[facility]2022-12-01 11:40:38Ejection FractionSLEH ECHO [facility]ARTLAB [facility] Echo W/Doppler(CW/PW/Color) 2022-12-01 11:40:38Ejection FractionSLEH ECHO [facility]ARTLAB [facility] Echo W/Doppler(CW/PW/Color)2022-12-01 11:40:38Ejection FractionSLEH ECHO [facility]ART[facility] Echo W/Doppler(CW/PW/Color)2022-12-01 11:40:38Ejection FractionSLE ECHO HEARTLAB [facility] Echo W/Doppler(CW/PW/Color) 2022-12-01 11:40:38Ejection FractionSLEH ECHO [facility]ARTLAB [facility] Echo W/Doppler(CW/PW/Color)2022-12-01 11:40:38Ejection FractionSLEH ECHO [facility] [facility] W/Doppler(CW/PW/Color)2022-12-01 11:40:38Ejection FractionSLEH ECHO HEARTLAB [facility] W/Doppler(CW/PW/Color) 2022-12-01 11:40:38Ejection FractionSLEH ECHO HEARTLAB [facility] W/Doppler(CW/PW/Color)2022-12-01 11:40:38Ejection FractionSLEH ECHO HEARTLAB [facility] W/Doppler(CW/PW/Color)2022-12-01 11:40:38Ejection FractionSLEH ECHO HEARTLAB BUR[facility]2D Echo W/Doppler(CW/PW/Color) 2022-12-01 11:40:38Ejection FractionSLEH ECHO HEARTLAB BURAK [facility]2D Echo W/Doppler(CW/PW/Color)2022-12-01 11:40:38Ejection FractionSLEH ECHO HEARTLAB BURAK [facility]2D Echo W/Doppler(CW/PW/Color)2022-12-01 11:40:38Ejection FractionSLEH ECHO HEARTLAB [facility]/PW/Color[facility] 2022-12-01 11:40:38Ejection FractionSLEH ECHO HEARTLAB MARIA ELENAKADEN [facility]2D Echo W/Doppler(CW/PW/Color)2022-12-01 11:40:38Ejection FractionSLEH ECHO HEARTLAB [facility]/Doppler(CW/PW/Color)2022-12-01 11:40:38Ejection FractionSLEH ECHO HEARTLAB [facility]Do[facility](CW/PW/Color) 2022-12-01 11:40:38Ejection FractionSLEH ECHO HEARTLAB B[place]AK [facility]2D Echo W/Doppler(CW/PW/Color)2022-12-01 11:40:38Ejection FractionSLEH ECHO HEARTLAB [facility]Doppler(CW/PW/Color)2022-12-01 11:40:38Ejection FractionSLEH ECHO HEARTLAB [facility]Doppler(CW/PW/Color) 2022-12-01 11:40:38Ejection FractionSLEH ECHO [facility]ARTLAB [facility] [id number] 11:18:53 Test Item Value Reference Range Interpretation Comments POC-Glucose Meter (test 290 mg/dL 70-110 H : [facility]38[facility] [address] [address]: Deputy Building Guard/Techni jr ID = [id number] for Ho, Nhatrang Lab Interpretation (test Abnormal code = 86828-2) [facility] [id number] 11:18:53 Test Item Value Reference Range Interpretation Comments POC-Glucose Meter (test 290 mg/dL 70-110 H : TE STED AT [facility] code = 1538) [address] [address]: Deputy Building Guard/Techni jr ID = [id number] for Ho, Nhatrang Lab Interpretation (test Abnormal code = 67375-6) [facility]-Glucose [id number] 11:18:53 Test Item Value Reference Range Interpretation Comments POC-Glucose Meter (test 290 mg/dL 70-110 H : TE STED AT [facility] code = 1538) [address] [address]: Deputy Building Guard/Techni jr ID = [id number] for Ho, Nhatrang Lab Interpretation (test Abnormal code = 16904-8) [facility]-GLUCOSE [id number] 11:18:53 Test Item Value Reference Range Interpretation Comments POC-GLUCOSE METER 290 mg/dL 70-110 H : TESTED A T [facility] 1317 (BEAKER) (test code [facility], = 1538) [facility] 77 8: Deputy Building Guard/Techni jr ID = [id number] for Ho, Nhatrang BASIC METABOLIC [id number] 08:35:07 Test Item Value Reference Range Interpretation [...] 358) GLUCOSE RANDOM 353 mg/dL 70-110 H ([facility]) (test code = 652) CALCIUM (CHRISTOPHE) 8.9 mg/dL 8.5-10.5 (test code = 697) EGFR ([facility]) 16 Interpretatio n of eGFR (test code = mL/min/1.73 values Stage D escription 1092) sq m Result G1 Mary Jo [...] not appl icable for dialysis patien ts Deputy Building Guard ID - [id number] ID - [id number] ID - [id number] ID - [id number] ID - [id number] ID - IBIYI554Elmyrepy ID - MMKBJ654Wglfhvrl ID - PRCKN568Wddlvwbb ID - XJNCN767Dyuuubtj ID - HBKXR632Lzfgzadd ID - MRTQZ071Bkpdtduv ID - GKAVU995Rmvzbtjv ID - [id number] ACID, [id number] 07:48:33 Test Item Value Reference Range Interpretation Comments LACTATE BLOOD 1.70 mmol/L See_Comment [Automated me ssage] VENOUS (2) ([facility]) The syst em which (test code = 2872) generated this result transmitted ref erence range: 0.50-<2. 00. The reference range was not used to interpr et this result as normal/abnormal . POCT-GLUCOSE [id number] 06:01:14 Test Item Value Reference Range Interpretation Comments POC-GLUCOSE METER 289 mg/dL 70-110 H : TESTED A T [facility] [address] (CHRISTOPHE) (test code [address], = 1538) [facility] 77 478: Deputy Building Guard/Techni jr ID = [id number] for Sana polancozhouLenore HEMOGLOBIN [id number] 05:25:05 Test Item Value Reference Range Interpretation Comments HEMOGLOBIN A1C (BEAKER) (test code = 9.4 % 4.3-6.1 H 368) Deputy Building Guard ID - [id number] W/PLT COUNT & AUTO [id number] 05:09:42 Test Item Value Reference Range Interpretation [...] (BEAKER) (test code = 1+ few 965) [id number] 04:42:38 Test Item Value Reference Range Interpretation Comments MAGNESIUM (BEAKER) (test code = 2.1 mg/dL 1.5-3.0 627) Deputy Building Guard ID - [id number] ID - [id number] ID - TFNC22Kzzzrmyh ID - [id number] [id number] 04:40:20 Test Item Value Reference Range Interpretation Comments PHOSPHORUS (BEAKER) (test code = 2.8 mg/dL 2.5-4.5 604) Deputy Building Guard ID - [id number] METABOLIC [id number] 04:12:40 Test Item Value Reference Range Interpretation [...] not appl icable for dialysis patien ts Deputy Building Guard ID - [id number] ID - GPIH93Dpcwopso ID - QZIY97Gfabjxmn ID - ZXOF06Zopltibf ID - PZPO42Ufmnpgzt ID - ZZNC18Uzcplgdj ID - XOGU70Opakqpuy ID - ZQKW99Cykbhdnc ID - XPAA30Fvkgvuqm ID - [id number] 04:12:39 Test Item Value Reference Range Interpretation Comments MAGNESIUM (BEAKER) (test code = 2.2 mg/dL 1.5-3.0 627) Deputy Building Guard ID - [id number] ID - RTNJ70Pckyojgb ID - FGIK44Spfxenag ID - [id number] LACTIC ACID, [id number] 04:10:15 Test Item Value Reference Range Interpretation Comments LACTATE BLOOD 3.09 mmol/L See_Comment HH [Automated me ssage] VENOUS (2) (BEAKER) The syst em which (test code = 2872) generated this result transmitted ref erence range: 0.50-<2. 00. The reference range was not used to interpr et this result as normal/abnormal . Deputy Building Guard ID - ZDRP80Dxxoharh ID - YZYT05Bsbqjfeg ID - VCWK23Dtzuwlih ID - ZNMP04 [id number] 04:10:10 Test Item Value Reference Range Interpretation Comments PHOSPHORUS (BEAKER) (test code = 2.7 mg/dL 2.5-4.5 604) Deputy Building Guard ID - [id number] LEVEL, [id number] 04:05:26 Test Item Value Reference Range Interpretation Comments VANCOMYCIN TROUGH (BEAKER) (test 16.4 ug/mL 10.0-20.0 code = 522) Deputy Building Guard ID - [id number] GAS, [id number] 03:53:32 Test Item Value Reference Range Interpretation [...] (BEAKER) (test code = 1819) 80.0 POCT-GLUCOSE [id number] 02:16:54 Test Item Value Reference Range Interpretation Comments POC-GLUCOSE METER 260 mg/dL 70-110 H : TESTED A T [facility] [address] (BEAKER) (test code [address], = 1538) [place] [address]: Deputy Building Guard/Techni jr ID = [id number] for Lenore Philip POCT-GLUCOSE [id number] 00:45:19 Test Item Value Reference Range Interpretation Comments POC-GLUCOSE METER 306 mg/dL 70-110 H : TESTED A T [facility] [address] (BEAKER) (test code [address], = 1538) [place] [address]: Deputy Building Guard/Techni jr ID = [id number] for Lenore Philip BASIC METABOLIC [id number] 00:11:58 Test Item Value Reference Range Interpretation [...] not appl icable for dialysis patien ts Deputy Building Guard ID - [id number] ID - [id number] ID - JGMGXU697Ywittuur ID - XOVWXY722KrkbkkgwLG - ZEOOMS973Gfrnhjgl ID - YJPJUL729Wscwnqsr ID - BUTHZY035Snoodoyc ID - AVADQW854Ctvoaebv ID - FTAUNB076Ptxhvngm ID - TSZGGF700Ylxvwqab ID - AWAKHB783Zcbujwkv ID - UTWJNC179Sfukyqbl ID - [id number] POCT-GLUCOSE [id number] 23:11:14 Test Item Value Reference Range Interpretation Comments POC-GLUCOSE METER 344 mg/dL 70-110 H : TESTED A T [facility] [address] (BEAKER) (test code [address], = 1538) [facility] 77 478: Deputy Building Guard/Techni jr ID = [id number] for Dee Reynolds BASIC METABOLIC [id number] 20:11:13 Test Item Value Reference Range Interpretation [...] (test code = 697) EGFR (BEAKER) 16 Interpretati on of eGFR (test code = [...] not appl icable for dialysis patien ts Deputy Building Guard ID - [id number] ID - [id number] ID - TMJVZQ216Vlwbgxir ID - PEFIJS292UixgmgerBT - OFDUMR749Pwazfopc ID - RPGCIV488Yxvnlugt ID - RMTCCR583Siuueybw ID - MFXDEJ311Hgxbwgnm ID - GKXHJD236Ihjlueog ID - IONJLV949Hpvpsmjc ID - TMJIXP708Zjlmvfpv ID - [id number] ID - [id number] LACTIC ACID, [id number] 20:03:04 Test Item Value Reference Range Interpretation Comments LACTATE BLOOD 2.26 mmol/L See_Comment HH [Automated me ssage] VENOUS (2) (BEAKER) The syst em which (test code = 2872) generated this result transmitted ref erence range: 0.50-<2. 00. The reference range was not used to interpr et this result as normal/abnormal . Deputy Building Guard ID - [id number] ID - [id number] ID - UDGEXV902Tfrfvunw ID - [id number] GAS, [id number] 19:51:08 Test Item Value Reference Range Interpretation [...] (BEAKER) (test code = 1819) 21.0 POCT-GLUCOSE [id number] 18:16:03 Test Item Value Reference Range Interpretation Comments POC-GLUCOSE METER 217 mg/dL 70-110 H : Notified RN/MD: TESTED (BEAKER) (test code AT [facility] [address] = 1538) [place] [id number]: Deputy Building Guard/Techni jr ID = [id number] for John PaulVel castillo POCT-GLUCOSE [id number] 17:13:17 Test Item Value Reference Range Interpretation Comments POC-GLUCOSE METER 199 mg/dL 70-110 H : TESTED A T [facility] 1317 ([facility]) (test code [facility], = 1538) [place] [address]: Deputy Building Guard/Techni jr ID = [id number] for Hanna Soliman [id number] 11:51:46 Test Item Value Reference Range Interpretation Comments CORTISOL, TOTAL (BEAKER) (test 52.9 ug/dL 3.7-19.4 H code = 2755) Deputy Building Guard ID - ADMINPOCT-GLUCOSE [id number] 11:38:57 Test Item Value Reference Range Interpretation Comments POC-GLUCOSE METER 262 mg/dL 70-110 H : Notified RN/MD: TESTED (BEAKER) [facility] [address] = [address], [place] [address]: Deputy Building Guard/Techni jr ID = [id number] for Vel Gonzalez POCT-GLUCOSE [id number] 10:40:12 Test Item Value Reference Range Interpretation Comments POC-GLUCOSE METER 255 mg/dL 70-110 H : TESTED A T [facility] [address] (BEAKER) (test code [address], = 1538) [facility] [place] [address]: Deputy Building Guard/Techni jr ID = [id number] for Hanna Soliman COMPREHENSIVE METABOLIC [id number] 10:39:07 Test Item Value Reference Range Interpretation [...] not appl icable for dialysis patien ts Deputy Building Guard ID - [id number] ID - [id number] ID - [id number] ID - [id number] ID - [id number] ID - [id number] ID - [id number] ID - [id number] ID - [id number] ID - [id number] ID - [id number] ID - [id number] ID - [id number] ID - [id number] ID - [id number] ID - [id number] ID - [id number] ID - VANANHTSH/FREE T4 IF INDICATED 2022-11-30 09:57:51 Test Item Value Reference Range Interpretation Comments THYROID STIMULATING HORMONE 0.900 uIU/mL 0.350-5.500 (BEAKER) (test code = 772) Deputy Building Guard ID - [id number] GAS, [id number] 08:59:04 Test Item Value Reference Range Interpretation [...] (test 39.0 code = 1818) LACTIC ACID, [id number] 08:57:54 Test Item Value Reference Range Interpretation Comments LACTATE BLOOD 2.20 mmol/L See_Comment HH [Automated me ssage] VENOUS (2) (BEAKER) The syst em which (test code = 2872) generated this result transmitted ref erence range: 0.50-<2. 00. The reference range was not used to interpr et this result as normal/abnormal . LACTIC ACID, [id number] 07:58:58 Test Item Value Reference Range Interpretation Comments LACTATE BLOOD 3.42 mmol/L See_Comment HH [Automated me ssage] VENOUS (2) (BEAKER) The syst em which (test code = 7163) generated this result transmitted ref erence range: 0.50-<2. 00. The reference range was not used to interpr et this result as normal/abnormal . Deputy Building Guard ID - BRAXTONHOperator ID - Daierator ID - VANANHOperator ID - BRAXTONH CBC W/PLT COUNT & AUTO [id number] 07:58:12 Test Item Value Reference Range Interpretation [...] 1+ few 961) RAD, ABDOMEN/KUB 1 VIEW [id number] 06:40:00Reason for exam:->[facility] : 1965 Sex: MFINAL REPORT EXAM: KUB CLINICAL HISTORY: Feeding tube FINDINGS: A gastrostomy tube is noted overlying the region of the midline upper abdomen. There is nonobstructive bowel gas pattern. Aright common femoral catheter is noted. The regional osseous structures are unremarkable. Signed: Lupillo Grace MDReport Verified Date/Time: 11/30/2022 06:40:12 Urinalysis Microscopic [id number] 06:27:41 Test Item Value Reference Range Interpretation Comments RBC, UA (test code = 10-20 See_Comment [Autom ated message] 799-7) The system [employer] generated this result transmitted ref erence range: /HPF. Th e reference range was not used to int erpret this result as normal/abnormal . WBC, UA (test code = >100 See_Comment [Autom ated message] 24892-0) The system [employer] generated this result transmitted ref erence range: /HPF. Th e reference range was not used to int erpret this result as normal/abnormal . Bacteria, UA (test Moderate code = 51078-5) SQUAMOUS EPITHELIAL None Seen See_Comment [Automa mendoza message] (test code = 26872-5) The sy stem which generated this result transmitted ref erence range: /HPF. Th e reference range was not used to int erpret this result as normal/abnormal . Yeast (test code = Moderate 91087-3) [facility] [id number] 06:27:41 Test Item Value Reference Range Interpretation Comments RBC, UA (test code = 10-20 See_Comment [Autom ated message] 799-7) The system [employer] generated this result transmitted ref erence range: /HPF. Th e reference range was not used to int erpret this result as normal/abnormal . WBC, UA (test code = >100 See_Comment [Autom ated message] 24225-8) The system [employer] generated this result transmitted ref erence range: /HPF. Th e reference range was not used to int erpret this result as normal/abnormal . Bacteria, UA (test Moderate code = 30450-3) SQUAMOUS EPITHELIAL None Seen See_Comment [Automa mendoza message] (test code = 04370-7) The sy stem which generated this result transmitted ref erence range: /HPF. Th e reference range was not used to int erpret this result as normal/abnormal . Yeast (test code = Moderate 63086-2) [facility] [id number] 06:27:41 Test Item Value Reference Range Interpretation Comments RBC, UA (test code = 10-20 See_Comment [Autom ated message] 799-7) The system [employer] generated this result transmitted ref erence range: /HPF. Th e reference range was not used to int erpret this result as normal/abnormal . WBC, UA (test code = >100 See_Comment [Autom ated message] 09177-7) The system [employer] generated this result transmitted ref erence range: /HPF. Th e reference range was not used to int erpret this result as normal/abnormal . Bacteria, UA (test Moderate code = 81995-7) SQUAMOUS EPITHELIAL None Seen See_Comment [Automa mendoza message] (test code = 10841-5) The sy stem which generated this result transmitted ref erence range: /HPF. Th e reference range was not used to int erpret this result as normal/abnormal . Yeast (test code = Moderate 79219-0) [facility] [id number] 06:27:41 Test Item Value Reference Range Interpretation Comments RBC, UA (test code = 10-20 See_Comment [Autom ated message] 799-7) The system [employer] generated this result transmitted ref erence range: /HPF. Th e reference range was not used to int erpret this result as normal/abnormal . WBC, UA (test code = >100 See_Comment [Autom ated message] 29584-2) The system [employer] generated this result transmitted ref erence range: /HPF. Th e reference range was not used to int erpret this result as normal/abnormal . Bacteria, UA (test Moderate code = 39808-5) SQUAMOUS EPITHELIAL None Seen See_Comment [Automa mendoza message] (test code = 58640-6) The sy stem which generated this result transmitted ref erence range: /HPF. Th e reference range was not used to int erpret this result as normal/abnormal . Yeast (test code = Moderate 31632-1) [facility] [id number] 06:27:41 Test Item Value Reference Range Interpretation Comments RBC, UA (test code = 10-20 See_Comment [Autom ated message] 799-7) The system [employer] generated this result transmitted ref erence range: /HPF. Th e reference range was not used to int erpret this result as normal/abnormal . WBC, UA (test code = >100 See_Comment [Autom ated message] 15051-6) The system [employer] generated this result transmitted ref erence range: /HPF. Th e reference range was not used to int erpret this result as normal/abnormal . Bacteria, UA (test Moderate code = 44728-6) SQUAMOUS EPITHELIAL None Seen See_Comment [Automa mendoza message] (test code = 47545-6) The sy stem which generated this result transmitted ref erence range: /HPF. Th e reference range was not used to int erpret this result as normal/abnormal . Yeast (test code = Moderate 12857-9) [facility] [id number] 06:27:41 Test Item Value Reference Range Interpretation Comments RBC, UA (test code = 10-20 See_Comment [Autom ated message] 799-7) The system [employer] generated this result transmitted ref erence range: /HPF. Th e reference range was not used to int erpret this result as normal/abnormal . WBC, UA (test code = >100 See_Comment [Autom ated message] 84090-3) The system [employer] generated this result transmitted ref erence range: /HPF. Th e reference range was not used to int erpret this result as normal/abnormal . Bacteria, UA (test Moderate code = 34928-1) SQUAMOUS EPITHELIAL None Seen See_Comment [Automa mendoza message] (test code = 11400-7) The sy stem which generated this result transmitted ref erence range: /HPF. Th e reference range was not used to int erpret this result as normal/abnormal . Yeast (test code = Moderate 70548-8) [facility] [id number] 06:27:41 Test Item Value Reference Range Interpretation Comments RBC, UA (test code = 10-20 See_Comment [Autom ated message] 799-7) The system [employer] generated this result transmitted ref erence range: /HPF. Th e reference range was not used to int erpret this result as normal/abnormal . WBC, UA (test code = >100 See_Comment [Autom ated message] 99998-2) The system [employer] generated this result transmitted ref erence range: /HPF. Th e reference range was not used to int erpret this result as normal/abnormal . Bacteria, UA (test Moderate code = 10505-0) SQUAMOUS EPITHELIAL None Seen See_Comment [Automa mendoza message] (test code = 81825-0) The sy stem which generated this result transmitted ref erence range: /HPF. Th e reference range was not used to int erpret this result as normal/abnormal . Yeast (test code = Moderate 42753-3) [facility] [id number] 06:27:41 Test Item Value Reference Range Interpretation Comments RBC, UA (test code = 10-20 See_Comment [Autom ated message] 799-7) The system [employer] generated this result transmitted ref erence range: /HPF. Th e reference range was not used to int erpret this result as normal/abnormal . WBC, UA (test code = >100 See_Comment [Autom ated message] 00194-1) The system [employer] generated this result transmitted ref erence range: /HPF. Th e reference range was not used to int erpret this result as normal/abnormal . Bacteria, UA (test Moderate code = 20151-7) SQUAMOUS EPITHELIAL None Seen See_Comment [Automa mendoza message] (test code = 18321-6) The sy stem which generated this result transmitted ref erence range: /HPF. Th e reference range was not used to int erpret this result as normal/abnormal . Yeast (test code = Moderate 95265-4) [facility] [id number] 06:27:41 Test Item Value Reference Range Interpretation Comments RBC, UA (test code = 10-20 See_Comment [Autom ated message] 799-7) The system [employer] generated this result transmitted ref erence range: /HPF. Th e reference range was not used to int erpret this result as normal/abnormal . WBC, UA (test code = >100 See_Comment [Autom ated message] 13794-3) The system [employer] generated this result transmitted ref erence range: /HPF. Th e reference range was not used to int erpret this result as normal/abnormal . Bacteria, UA (test Moderate code = 10344-4) SQUAMOUS EPITHELIAL None Seen See_Comment [Automa mendoza message] (test code = 18455-3) The sy stem which generated this result transmitted ref erence range: /HPF. Th e reference range was not used to int erpret this result as normal/abnormal . Yeast (test code = Moderate 76553-8) [facility] [id number] 06:27:41 Test Item Value Reference Range Interpretation Comments RBC, UA (test code = 10-20 See_Comment [Autom ated message] 799-7) The system [employer] generated this result transmitted ref erence range: /HPF. Th e reference range was not used to int erpret this result as normal/abnormal . WBC, UA (test code = >100 See_Comment [Autom ated message] 22919-7) The system [employer] generated this result transmitted ref erence range: /HPF. Th e reference range was not used to int erpret this result as normal/abnormal . Bacteria, UA (test Moderate code = 75278-6) SQUAMOUS EPITHELIAL None Seen See_Comment [Automa mendoza message] (test code = 75248-2) The sy stem which generated this result transmitted ref erence range: /HPF. Th e reference range was not used to int erpret this result as normal/abnormal . Yeast (test code = Moderate 58341-8) [facility] [id number] 06:27:41 Test Item Value Reference Range Interpretation Comments RBC, UA (test code = 10-20 See_Comment [Autom ated message] 799-7) The system [employer] generated this result transmitted ref erence range: /HPF. Th e reference range was not used to int erpret this result as normal/abnormal . WBC, UA (test code = >100 See_Comment [Autom ated message] 13660-7) The system [employer] generated this result transmitted ref erence range: /HPF. Th e reference range was not used to int erpret this result as normal/abnormal . Bacteria, UA (test Moderate code = 14215-0) SQUAMOUS EPITHELIAL None Seen See_Comment [Automa mendoza message] (test code = 36688-7) The sy stem which generated this result transmitted ref erence range: /HPF. Th e reference range was not used to int erpret this result as normal/abnormal . Yeast (test code = Moderate 66606-0) [facility] [id number] 06:27:41 Test Item Value Reference Range Interpretation Comments RBC, UA (test code = 10-20 See_Comment [Autom ated message] 799-7) The system [employer] generated this result transmitted ref erence range: /HPF. Th e reference range was not used to int erpret this result as normal/abnormal . WBC, UA (test code = >100 See_Comment [Autom ated message] 59145-1) The system [employer] generated this result transmitted ref erence range: /HPF. Th e reference range was not used to int erpret this result as normal/abnormal . Bacteria, UA (test Moderate code = 23008-2) SQUAMOUS EPITHELIAL None Seen See_Comment [Automa mendoza message] (test code = 63691-9) The sy stem which generated this result transmitted ref erence range: /HPF. Th e reference range was not used to int erpret this result as normal/abnormal . Yeast (test code = Moderate 62171-6) [facility] [id number] 06:27:41 Test Item Value Reference Range Interpretation Comments RBC, UA (test code = 10-20 See_Comment [Autom ated message] 799-7) The system [employer] generated this result transmitted ref erence range: /HPF. Th e reference range was not used to int erpret this result as normal/abnormal . WBC, UA (test code = >100 See_Comment [Autom ated message] 99726-3) The system [employer] generated this result transmitted ref erence range: /HPF. Th e reference range was not used to int erpret this result as normal/abnormal . Bacteria, UA (test Moderate code = 90687-0) SQUAMOUS EPITHELIAL None Seen See_Comment [Automa mendoza message] (test code = 28128-1) The sy stem which generated this result transmitted ref erence range: /HPF. Th e reference range was not used to int erpret this result as normal/abnormal . Yeast (test code = Moderate 96220-5) [facility] [id number] 06:27:41 Test Item Value Reference Range Interpretation Comments RBC, UA (test code = 10-20 See_Comment [Autom ated message] 799-7) The system [employer] generated this result transmitted ref erence range: /HPF. Th e reference range was not used to int erpret this result as normal/abnormal . WBC, UA (test code = >100 See_Comment [Autom ated message] 22904-2) The system [employer] generated this result transmitted ref erence range: /HPF. Th e reference range was not used to int erpret this result as normal/abnormal . Bacteria, UA (test Moderate code = 26891-0) SQUAMOUS EPITHELIAL None Seen See_Comment [Automa mendoza message] (test code = 20950-8) The sy stem which generated this result transmitted ref erence range: /HPF. Th e reference range was not used to int erpret this result as normal/abnormal . Yeast (test code = Moderate 17007-0) [facility] [id number] 06:27:41 Test Item Value Reference Range Interpretation Comments RBC, UA (test code = 10-20 See_Comment [Autom ated message] 799-7) The system [employer] generated this result transmitted ref erence range: /HPF. Th e reference range was not used to int erpret this result as normal/abnormal . WBC, UA (test code = >100 See_Comment [Autom ated message] 64233-7) The system [employer] generated this result transmitted ref erence range: /HPF. Th e reference range was not used to int erpret this result as normal/abnormal . Bacteria, UA (test Moderate code = 27636-6) SQUAMOUS EPITHELIAL None Seen See_Comment [Automa mendoza message] (test code = 70731-1) The sy stem which generated this result transmitted ref erence range: /HPF. Th e reference range was not used to int erpret this result as normal/abnormal . Yeast (test code = Moderate 58870-0) [facility] [id number] 06:27:41 Test Item Value Reference Range Interpretation Comments RBC, UA (test code = 10-20 See_Comment [Autom ated message] 799-7) The system [employer] generated this result transmitted ref erence range: /HPF. Th e reference range was not used to int erpret this result as normal/abnormal . WBC, UA (test code = >100 See_Comment [Autom ated message] 85144-7) The system [employer] generated this result transmitted ref erence range: /HPF. Th e reference range was not used to int erpret this result as normal/abnormal . Bacteria, UA (test Moderate code = 68736-8) SQUAMOUS EPITHELIAL None Seen See_Comment [Automa mendoza message] (test code = 22370-6) The sy stem which generated this result transmitted ref erence range: /HPF. Th e reference range was not used to int erpret this result as normal/abnormal . Yeast (test code = Moderate 94405-0) [facility] [id number] 06:27:41 Test Item Value Reference Range Interpretation Comments RBC, UA (test code = 10-20 See_Comment [Autom ated message] 799-7) The system whic h generated this result transmitted ref erence range: /HPF. Th e reference range was not used to int erpret this result as normal/abnormal . WBC, UA (test code = >100 See_Comment [Autom ated message] 75740-9) The system [employer] generated this result transmitted ref erence range: /HPF. Th e reference range was not used to int erpret this result as normal/abnormal . Bacteria, UA (test Moderate code = 19234-6) SQUAMOUS EPITHELIAL None Seen See_Comment [Automa mendoza message] (test code = 75804-3) The sy stem which generated this result transmitted ref erence range: /HPF. Th e reference range was not used to int erpret this result as normal/abnormal . Yeast (test code = Moderate 34303-6) [facility] [id number] 06:27:41 Test Item Value Reference Range Interpretation Comments RBC, UA (test code = 10-20 See_Comment [Autom ated message] 799-7) The system [employer] generated this result transmitted ref erence range: /HPF. Th e reference range was not used to int erpret this result as normal/abnormal . WBC, UA (test code = >100 See_Comment [Autom ated message] 54746-7) The system [employer] generated this result transmitted ref erence range: /HPF. Th e reference range was not used to int erpret this result as normal/abnormal . Bacteria, UA (test Moderate code = 37435-0) SQUAMOUS EPITHELIAL None Seen See_Comment [Automa mendoza message] (test code = 09971-0) The sy stem which generated this result transmitted ref erence range: /HPF. Th e reference range was not used to int erpret this result as normal/abnormal . Yeast (test code = Moderate 89421-0) [facility] [id number] 06:27:41 Test Item Value Reference Range Interpretation Comments RBC, UA (test code = 10-20 See_Comment [Autom ated message] 799-7) The system [employer] generated this result transmitted ref erence range: /HPF. Th e reference range was not used to int erpret this result as normal/abnormal . WBC, UA (test code = >100 See_Comment [Autom ated message] 27317-6) The system [employer] generated this result transmitted ref erence range: /HPF. Th e reference range was not used to int erpret this result as normal/abnormal . Bacteria, UA (test Moderate code = 63258-5) SQUAMOUS EPITHELIAL None Seen See_Comment [Automa mendoza message] (test code = 73260-7) The sy stem which generated this result transmitted ref erence range: /HPF. Th e reference range was not used to int erpret this result as normal/abnormal . Yeast (test code = Moderate 03204-2) [facility] [id number] 06:27:41 Test Item Value Reference Range Interpretation Comments RBC, UA (test code = 10-20 See_Comment [Autom ated message] 799-7) The system [employer] generated this result transmitted ref erence range: /HPF. Th e reference range was not used to int erpret this result as normal/abnormal . WBC, UA (test code = >100 See_Comment [Autom ated message] 87851-4) The system [employer] generated this result transmitted ref erence range: /HPF. Th e reference range was not used to int erpret this result as normal/abnormal . Bacteria, UA (test Moderate code = 62947-3) SQUAMOUS EPITHELIAL None Seen See_Comment [Automa mendoza message] (test code = 10467-6) The sy stem which generated this result transmitted ref erence range: /HPF. Th e reference range was not used to int erpret this result as normal/abnormal . Yeast (test code = Moderate 46013-7) [facility] [id number] 06:27:41 Test Item Value Reference Range Interpretation Comments RBC, UA (test code = 10-20 See_Comment [Autom ated message] 799-7) The system [employer] generated this result transmitted ref erence range: /HPF. Th e reference range was not used to int erpret this result as normal/abnormal . WBC, UA (test code = >100 See_Comment [Autom ated message] 31706-6) The system [employer] generated this result transmitted ref erence range: /HPF. Th e reference range was not used to int erpret this result as normal/abnormal . Bacteria, UA (test Moderate code = 35023-4) SQUAMOUS EPITHELIAL None Seen See_Comment [Automa mendoza message] (test code = 63612-6) The sy stem which generated this result transmitted ref erence range: /HPF. Th e reference range was not used to int erpret this result as normal/abnormal . Yeast (test code = Moderate 80729-3) [facility] [id number] 06:27:41 Test Item Value Reference Range Interpretation Comments RBC, UA (test code = 10-20 See_Comment [Autom ated message] 799-7) The system [employer] generated this result transmitted ref erence range: /HPF. Th e reference range was not used to int erpret this result as normal/abnormal . WBC, UA (test code = >100 See_Comment [Autom ated message] 09430-6) The system [employer] generated this result transmitted ref erence range: /HPF. Th e reference range was not used to int erpret this result as normal/abnormal . Bacteria, UA (test Moderate code = 57379-5) SQUAMOUS EPITHELIAL None Seen See_Comment [Automa mendoza message] (test code = 05128-5) The sy stem which generated this result transmitted ref erence range: /HPF. Th e reference range was not used to int erpret this result as normal/abnormal . Yeast (test code = Moderate 78792-9) [facility] [id number] 06:27:41 Test Item Value Reference Range Interpretation Comments RBC, UA (test code = 10-20 See_Comment [Autom ated message] 799-7) The system [employer] generated this result transmitted ref erence range: /HPF. Th e reference range was not used to int erpret this result as normal/abnormal . WBC, UA (test code = >100 See_Comment [Autom ated message] 44553-6) The system [employer] generated this result transmitted ref erence range: /HPF. Th e reference range was not used to int erpret this result as normal/abnormal . Bacteria, UA (test Moderate code = 78668-6) SQUAMOUS EPITHELIAL None Seen See_Comment [Automa mendoza message] (test code = 71640-5) The sy stem which generated this result transmitted ref erence range: /HPF. Th e reference range was not used to int erpret this result as normal/abnormal . Yeast (test code = Moderate 70799-0) [facility] [id number] 06:27:41 Test Item Value Reference Range Interpretation Comments RBC, UA (test code = 10-20 See_Comment [Autom ated message] 799-7) The system [employer] generated this result transmitted ref erence range: /HPF. Th e reference range was not used to int erpret this result as normal/abnormal . WBC, UA (test code = >100 See_Comment [Autom ated message] 75587-3) The system [employer] generated this result transmitted ref erence range: /HPF. Th e reference range was not used to int erpret this result as normal/abnormal . Bacteria, UA (test Moderate code = 83916-7) SQUAMOUS EPITHELIAL None Seen See_Comment [Automa mendoza message] (test code = 58682-7) The sy stem which generated this result transmitted ref erence range: /HPF. Th e reference range was not used to int erpret this result as normal/abnormal . Yeast (test code = Moderate 63403-0) [facility] [id number] 06:27:41 Test Item Value Reference Range Interpretation Comments RBC, UA (test code = 10-20 See_Comment [Autom ated message] 799-7) The system [employer] generated this result transmitted ref erence range: /HPF. Th e reference range was not used to int erpret this result as normal/abnormal . WBC, UA (test code = >100 See_Comment [Autom ated message] 98733-8) The system [employer] generated this result transmitted ref erence range: /HPF. Th e reference range was not used to int erpret this result as normal/abnormal . Bacteria, UA (test Moderate code = 88734-4) SQUAMOUS EPITHELIAL None Seen See_Comment [Automa mendoza message] (test code = 56094-0) The sy stem which generated this result transmitted ref erence range: /HPF. Th e reference range was not used to int erpret this result as normal/abnormal . Yeast (test code = Moderate 50847-9) [facility] [id number] 06:27:41 Test Item Value Reference Range Interpretation Comments RBC, UA (test code = 10-20 See_Comment [Autom ated message] 799-7) The system [employer] generated this result transmitted ref erence range: /HPF. Th e reference range was not used to int erpret this result as normal/abnormal . WBC, UA (test code = >100 See_Comment [Autom ated message] 10302-4) The system [employer] generated this result transmitted ref erence range: /HPF. Th e reference range was not used to int erpret this result as normal/abnormal . Bacteria, UA (test Moderate code = 11732-2) SQUAMOUS EPITHELIAL None Seen See_Comment [Automa mendoza message] (test code = 82792-3) The sy stem which generated this result transmitted ref erence range: /HPF. Th e reference range was not used to int erpret this result as normal/abnormal . Yeast (test code = Moderate 01618-3) [facility] [id number] 06:27:41 Test Item Value Reference Range Interpretation Comments RBC, UA (test code = 10-20 See_Comment [Autom ated message] 799-7) The system [employer] generated this result transmitted ref erence range: /HPF. Th e reference range was not used to int erpret this result as normal/abnormal . WBC, UA (test code = >100 See_Comment [Autom ated message] 21438-4) The system [employer] generated this result transmitted ref erence range: /HPF. Th e reference range was not used to int erpret this result as normal/abnormal . Bacteria, UA (test Moderate code = 39799-5) SQUAMOUS EPITHELIAL None Seen See_Comment [Automa mendoza message] (test code = 28187-5) The sy stem which generated this result transmitted ref erence range: /HPF. Th e reference range was not used to int erpret this result as normal/abnormal . Yeast (test code = Moderate 16207-0) [facility] [id number] 06:27:41 Test Item Value Reference Range Interpretation Comments RBC, UA (test code = 10-20 See_Comment [Autom ated message] 799-7) The system [employer] generated this result transmitted ref erence range: /HPF. Th e reference range was not used to int erpret this result as normal/abnormal . WBC, UA (test code = >100 See_Comment [Autom ated message] 50404-4) The system [employer] generated this result transmitted ref erence range: /HPF. Th e reference range was not used to int erpret this result as normal/abnormal . Bacteria, UA (test Moderate code = 22432-4) SQUAMOUS EPITHELIAL None Seen See_Comment [Automa mendoza message] (test code = 20097-5) The sy stem which generated this result transmitted ref erence range: /HPF. Th e reference range was not used to int erpret this result as normal/abnormal . Yeast (test code = Moderate 14245-6) [facility] [id number] 06:27:41 Test Item Value Reference Range Interpretation Comments RBC, UA (test code = 10-20 See_Comment [Autom ated message] 799-7) The system [employer] generated this result transmitted ref erence range: /HPF. Th e reference range was not used to int erpret this result as normal/abnormal . WBC, UA (test code = >100 See_Comment [Autom ated message] 89533-2) The system [employer] generated this result transmitted ref erence range: /HPF. Th e reference range was not used to int erpret this result as normal/abnormal . Bacteria, UA (test Moderate code = 06799-5) SQUAMOUS EPITHELIAL None Seen See_Comment [Automa mendoza message] (test code = 78864-3) The sy stem which generated this result transmitted ref erence range: /HPF. Th e reference range was not used to int erpret this result as normal/abnormal . Yeast (test code = Moderate 48403-9) [facility] [id number] 06:27:41 Test Item Value Reference Range Interpretation Comments RBC, UA (test code = 10-20 See_Comment [Autom ated message] 799-7) The system [employer] generated this result transmitted ref erence range: /HPF. Th e reference range was not used to int erpret this result as normal/abnormal . WBC, UA (test code = >100 See_Comment [Autom ated message] 77610-3) The system [employer] generated this result transmitted ref erence range: /HPF. Th e reference range was not used to int erpret this result as normal/abnormal . Bacteria, UA (test Moderate code = 75849-4) SQUAMOUS EPITHELIAL None Seen See_Comment [Automa mendoza message] (test code = 34635-4) The sy stem which generated this result transmitted ref erence range: /HPF. Th e reference range was not used to int erpret this result as normal/abnormal . Yeast (test code = Moderate 85869-7) [facility] [id number] 06:27:41 Test Item Value Reference Range Interpretation Comments RBC, UA (test code = 10-20 See_Comment [Autom ated message] 799-7) The system [employer] generated this result transmitted ref erence range: /HPF. Th e reference range was not used to int erpret this result as normal/abnormal . WBC, UA (test code = >100 See_Comment [Autom ated message] 87325-8) The system [employer] generated this result transmitted ref erence range: /HPF. Th e reference range was not used to int erpret this result as normal/abnormal . Bacteria, UA (test Moderate code = 05061-0) SQUAMOUS EPITHELIAL None Seen See_Comment [Automa mendoza message] (test code = 72270-4) The sy stem which generated this result transmitted ref erence range: /HPF. Th e reference range was not used to int erpret this result as normal/abnormal . Yeast (test code = Moderate 84717-5) [facility] [id number] 06:27:41 Test Item Value Reference Range Interpretation Comments RBC, UA (test code = 10-20 See_Comment [Autom ated message] 799-7) The system [employer] generated this result transmitted ref erence range: /HPF. Th e reference range was not used to int erpret this result as normal/abnormal . WBC, UA (test code = >100 See_Comment [Autom ated message] 67333-3) The system [employer] generated this result transmitted ref erence range: /HPF. Th e reference range was not used to int erpret this result as normal/abnormal . Bacteria, UA (test Moderate code = 39472-1) SQUAMOUS EPITHELIAL None Seen See_Comment [Automa mendoza message] (test code = 03350-5) The sy stem which generated this result transmitted ref erence range: /HPF. Th e reference range was not used to int erpret this result as normal/abnormal . Yeast (test code = Moderate 28357-7) [facility] [id number] 06:27:41 Test Item Value Reference Range Interpretation Comments RBC, UA (test code = 10-20 See_Comment [Autom ated message] 799-7) The system [employer] generated this result transmitted ref erence range: /HPF. Th e reference range was not used to int erpret this result as normal/abnormal . WBC, UA (test code = >100 See_Comment [Autom ated message] 09129-2) The system [employer] generated this result transmitted ref erence range: /HPF. Th e reference range was not used to int erpret this result as normal/abnormal . Bacteria, UA (test Moderate code = 04489-9) SQUAMOUS EPITHELIAL None Seen See_Comment [Automa mendoza message] (test code = 79341-0) The sy stem which generated this result transmitted ref erence range: /HPF. Th e reference range was not used to int erpret this result as normal/abnormal . Yeast (test code = Moderate 09352-8) [facility] [id number] 06:27:41 Test Item Value Reference Range Interpretation Comments RBC, UA (test code = 10-20 See_Comment [Autom ated message] 799-7) The system [employer] generated this result transmitted ref erence range: /HPF. Th e reference range was not used to int erpret this result as normal/abnormal . WBC, UA (test code = >100 See_Comment [Autom ated message] 56652-7) The system [employer] generated this result transmitted ref erence range: /HPF. Th e reference range was not used to int erpret this result as normal/abnormal . Bacteria, UA (test Moderate code = 95130-1) SQUAMOUS EPITHELIAL None Seen See_Comment [Automa mendoza message] (test code = 76416-9) The sy stem which generated this result transmitted ref erence range: /HPF. Th e reference range was not used to int erpret this result as normal/abnormal . Yeast (test code = Moderate 22037-0) [facility] [id number] 06:27:41 Test Item Value Reference Range Interpretation Comments RBC UA-MANUAL (BEAKER) (test 10-20 /HPF code = 1659) WBC UA-MANUAL (BEAKER) (test >100 /HPF code = 1661) BACTERIA (BEAKER) (test code = Moderate 517) SQUAMOUS EPITHELIAL MANUAL None Seen /HPF (BEAKER) (test code = 1663) YEAST (BEAKER) (test code = Moderate 1585) Urinalysis with Microscopic If [id number] 06:26:45 Test Item Value Reference Range Interpretation Comments Color, UA (test code = 5778-6) Yellow Clarity, UA (test code = 5767-9) Cloudy Specific Cook Sta, UA (test code = 1.001-1.035 5811-5) pH, UA (test code = 5803-2) 5.0 5.0-8.0 Protein, UA (test code = 67152-6) >=300 mg/dL Negative A Glucose, UA (test code = 365) 100 mg/dL Negative A Ketones, UA (test code = 2514-8) Trace Negative A Bilirubin, UA (test code = Positive Negative A 16440-9) Blood, UA (test code = 84232-5) Moderate Negative A Nitrite, UA (test code = 5802-4) Negative Negative Leukocytes, UA (test code = Moderate Negative A 5799-2) Urobilinogen, UA (test code = 0.2 82472-6) Specimen Source (test code = 2795) Lab Interpretation (test code = Abnormal 20546-1) [facility] [id number] 06:26:45 Test Item Value Reference Range Interpretation Comments Color, UA (test code = 5778-6) Yellow Clarity, UA (test code = 5767-9) Cloudy Specific Cook Sta, UA (test code = 1.001-1.035 5811-5) pH, UA (test code = 5803-2) 5.0 5.0-8.0 Protein, UA (test code = 07067-4) >=300 mg/dL Negative A Glucose, UA (test code = 365) 100 mg/dL Negative A Ketones, UA (test code = 2514-8) Trace Negative A Bilirubin, UA (test code = Positive Negative A 96109-1) Blood, UA (test code = 69486-2) Moderate Negative A Nitrite, UA (test code = 5802-4) Negative Negative Leukocytes, UA (test code = Moderate Negative A 5799-2) Urobilinogen, UA (test code = 0.2 07004-0) Specimen Source (test code = 2795) Lab Interpretation (test code = Abnormal 11746-2) [facility] [id number] 06:26:45 Test Item Value Reference Range Interpretation Comments Color, UA (test code = 5778-6) Yellow Clarity, UA (test code = 5767-9) Cloudy Specific Cook Sta, UA (test code = 1.001-1.035 5811-5) pH, UA (test code = 5803-2) 5.0 5.0-8.0 Protein, UA (test code = 39682-6) >=300 mg/dL Negative A Glucose, UA (test code = 365) 100 mg/dL Negative A Ketones, UA (test code = 2514-8) Trace Negative A Bilirubin, UA (test code = Positive Negative A 28189-2) Blood, UA (test code = 39055-8) Moderate Negative A Nitrite, UA (test code = 5802-4) Negative Negative Leukocytes, UA (test code = Moderate Negative A 5799-2) Urobilinogen, UA (test code = 0.2 79283-6) Specimen Source (test code = 2795) Lab Interpretation (test code = Abnormal 35526-6) [facility] [id number] 06:26:45 Test Item Value Reference Range Interpretation Comments Color, UA (test code = 5778-6) Yellow Clarity, UA (test code = 5767-9) Cloudy Specific Cook Sta, UA (test code = 1.001-1.035 5811-5) pH, UA (test code = 5803-2) 5.0 5.0-8.0 Protein, UA (test code = 61210-7) >=300 mg/dL Negative A Glucose, UA (test code = 365) 100 mg/dL Negative A Ketones, UA (test code = 2514-8) Trace Negative A Bilirubin, UA (test code = Positive Negative A 96106-8) Blood, UA (test code = 72973-3) Moderate Negative A Nitrite, UA (test code = 5802-4) Negative Negative Leukocytes, UA (test code = Moderate Negative A 5799-2) Urobilinogen, UA (test code = 0.2 06187-1) Specimen Source (test code = 2795) Lab Interpretation (test code = Abnormal 77043-3) [facility] [id number] 06:26:45 Test Item Value Reference Range Interpretation Comments Color, UA (test code = 5778-6) Yellow Clarity, UA (test code = 5767-9) Cloudy Specific Cook Sta, UA (test code = 1.001-1.035 5811-5) pH, UA (test code = 5803-2) 5.0 5.0-8.0 Protein, UA (test code = 61391-8) >=300 mg/dL Negative A Glucose, UA (test code = 365) 100 mg/dL Negative A Ketones, UA (test code = 2514-8) Trace Negative A Bilirubin, UA (test code = Positive Negative A 16778-2) Blood, UA (test code = 10206-5) Moderate Negative A Nitrite, UA (test code = 5802-4) Negative Negative Leukocytes, UA (test code = Moderate Negative A 5799-2) Urobilinogen, UA (test code = 0.2 94252-2) Specimen Source (test code = 2795) Lab Interpretation (test code = Abnormal 31671-7) [facility] [id number] 06:26:45 Test Item Value Reference Range Interpretation Comments Color, UA (test code = 5778-6) Yellow Clarity, UA (test code = 5767-9) Cloudy Specific Cook Sta, UA (test code = 1.001-1.035 5811-5) pH, UA (test code = 5803-2) 5.0 5.0-8.0 Protein, UA (test code = 84412-0) >=300 mg/dL Negative A Glucose, UA (test code = 365) 100 mg/dL Negative A Ketones, UA (test code = 2514-8) Trace Negative A Bilirubin, UA (test code = Positive Negative A 67034-9) Blood, UA (test code = 04814-1) Moderate Negative A Nitrite, UA (test code = 5802-4) Negative Negative Leukocytes, UA (test code = Moderate Negative A 5799-2) Urobilinogen, UA (test code = 0.2 51136-1) Specimen Source (test code = 2795) Lab Interpretation (test code = Abnormal 96302-5) [facility] [id number] 06:26:45 Test Item Value Reference Range Interpretation Comments Color, UA (test code = 5778-6) Yellow Clarity, UA (test code = 5767-9) Cloudy Specific Cook Sta, UA (test code = 1.001-1.035 5811-5) pH, UA (test code = 5803-2) 5.0 5.0-8.0 Protein, UA (test code = 97191-2) >=300 mg/dL Negative A Glucose, UA (test code = 365) 100 mg/dL Negative A Ketones, UA (test code = 2514-8) Trace Negative A Bilirubin, UA (test code = Positive Negative A 89106-2) Blood, UA (test code = 62289-0) Moderate Negative A Nitrite, UA (test code = 5802-4) Negative Negative Leukocytes, UA (test code = Moderate Negative A 5799-2) Urobilinogen, UA (test code = 0.2 93057-6) Specimen Source (test code = 2795) Lab Interpretation (test code = Abnormal 79466-5) [facility] [id number] 06:26:45 Test Item Value Reference Range Interpretation Comments Color, UA (test code = 5778-6) Yellow Clarity, UA (test code = 5767-9) Cloudy Specific Cook Sta, UA (test code = 1.001-1.035 5811-5) pH, UA (test code = 5803-2) 5.0 5.0-8.0 Protein, UA (test code = 99476-9) >=300 mg/dL Negative A Glucose, UA (test code = 365) 100 mg/dL Negative A Ketones, UA (test code = 2514-8) Trace Negative A Bilirubin, UA (test code = Positive Negative A 61395-8) Blood, UA (test code = 97592-9) Moderate Negative A Nitrite, UA (test code = 5802-4) Negative Negative Leukocytes, UA (test code = Moderate Negative A 5799-2) Urobilinogen, UA (test code = 0.2 61471-3) Specimen Source (test code = 2795) Lab Interpretation (test code = Abnormal 71954-2) [facility] [id number] 06:26:45 Test Item Value Reference Range Interpretation Comments Color, UA (test code = 5778-6) Yellow Clarity, UA (test code = 5767-9) Cloudy Specific Cook Sta, UA (test code = 1.001-1.035 5811-5) pH, UA (test code = 5803-2) 5.0 5.0-8.0 Protein, UA (test code = 39119-8) >=300 mg/dL Negative A Glucose, UA (test code = 365) 100 mg/dL Negative A Ketones, UA (test code = 2514-8) Trace Negative A Bilirubin, UA (test code = Positive Negative A 24097-9) Blood, UA (test code = 14501-6) Moderate Negative A Nitrite, UA (test code = 5802-4) Negative Negative Leukocytes, UA (test code = Moderate Negative A 5799-2) Urobilinogen, UA (test code = 0.2 50384-9) Specimen Source (test code = 2795) Lab Interpretation (test code = Abnormal 88287-4) [facility] [id number] 06:26:45 Test Item Value Reference Range Interpretation Comments Color, UA (test code = 5778-6) Yellow Clarity, UA (test code = 5767-9) Cloudy Specific Cook Sta, UA (test code = 1.001-1.035 5811-5) pH, UA (test code = 5803-2) 5.0 5.0-8.0 Protein, UA (test code = 32228-0) >=300 mg/dL Negative A Glucose, UA (test code = 365) 100 mg/dL Negative A Ketones, UA (test code = 2514-8) Trace Negative A Bilirubin, UA (test code = Positive Negative A 14251-5) Blood, UA (test code = 18625-4) Moderate Negative A Nitrite, UA (test code = 5802-4) Negative Negative Leukocytes, UA (test code = Moderate Negative A 5799-2) Urobilinogen, UA (test code = 0.2 50324-8) Specimen Source (test code = 2795) Lab Interpretation (test code = Abnormal 67747-9) [facility] [id number] 06:26:45 Test Item Value Reference Range Interpretation Comments Color, UA (test code = 5778-6) Yellow Clarity, UA (test code = 5767-9) Cloudy Specific Cook Sta, UA (test code = 1.001-1.035 5811-5) pH, UA (test code = 5803-2) 5.0 5.0-8.0 Protein, UA (test code = 36343-4) >=300 mg/dL Negative A Glucose, UA (test code = 365) 100 mg/dL Negative A Ketones, UA (test code = 2514-8) Trace Negative A Bilirubin, UA (test code = Positive Negative A 88273-7) Blood, UA (test code = 72572-6) Moderate Negative A Nitrite, UA (test code = 5802-4) Negative Negative Leukocytes, UA (test code = Moderate Negative A 5799-2) Urobilinogen, UA (test code = 0.2 09665-5) Specimen Source (test code = 2795) Lab Interpretation (test code = Abnormal 91808-2) [facility] [id number] 06:26:45 Test Item Value Reference Range Interpretation Comments Color, UA (test code = 5778-6) Yellow Clarity, UA (test code = 5767-9) Cloudy Specific Cook Sta, UA (test code = 1.001-1.035 5811-5) pH, UA (test code = 5803-2) 5.0 5.0-8.0 Protein, UA (test code = 15779-5) >=300 mg/dL Negative A Glucose, UA (test code = 365) 100 mg/dL Negative A Ketones, UA (test code = 2514-8) Trace Negative A Bilirubin, UA (test code = Positive Negative A 21794-0) Blood, UA (test code = 86155-3) Moderate Negative A Nitrite, UA (test code = 5802-4) Negative Negative Leukocytes, UA (test code = Moderate Negative A 5799-2) Urobilinogen, UA (test code = 0.2 42766-5) Specimen Source (test code = 2795) Lab Interpretation (test code = Abnormal 91774-3) [facility] [id number] 06:26:45 Test Item Value Reference Range Interpretation Comments Color, UA (test code = 5778-6) Yellow Clarity, UA (test code = 5767-9) Cloudy Specific Cook Sta, UA (test code = 1.001-1.035 5811-5) pH, UA (test code = 5803-2) 5.0 5.0-8.0 Protein, UA (test code = 95632-8) >=300 mg/dL Negative A Glucose, UA (test code = 365) 100 mg/dL Negative A Ketones, UA (test code = 2514-8) Trace Negative A Bilirubin, UA (test code = Positive Negative A 86605-0) Blood, UA (test code = 85226-5) Moderate Negative A Nitrite, UA (test code = 5802-4) Negative Negative Leukocytes, UA (test code = Moderate Negative A 5799-2) Urobilinogen, UA (test code = 0.2 76804-2) Specimen Source (test code = 2795) Lab Interpretation (test code = Abnormal 65640-0) [facility] [id number] 06:26:45 Test Item Value Reference Range Interpretation Comments Color, UA (test code = 5778-6) Yellow Clarity, UA (test code = 5767-9) Cloudy Specific Cook Sta, UA (test code = 1.001-1.035 5811-5) pH, UA (test code = 5803-2) 5.0 5.0-8.0 Protein, UA (test code = 34438-2) >=300 mg/dL Negative A Glucose, UA (test code = 365) 100 mg/dL Negative A Ketones, UA (test code = 2514-8) Trace Negative A Bilirubin, UA (test code = Positive Negative A 83934-3) Blood, UA (test code = 06489-3) Moderate Negative A Nitrite, UA (test code = 5802-4) Negative Negative Leukocytes, UA (test code = Moderate Negative A 5799-2) Urobilinogen, UA (test code = 0.2 58810-1) Specimen Source (test code = 2795) Lab Interpretation (test code = Abnormal 42351-9) [facility] [id number] 06:26:45 Test Item Value Reference Range Interpretation Comments Color, UA (test code = 5778-6) Yellow Clarity, UA (test code = 5767-9) Cloudy Specific Cook Sta, UA (test code = 1.001-1.035 5811-5) pH, UA (test code = 5803-2) 5.0 5.0-8.0 Protein, UA (test code = 14162-0) >=300 mg/dL Negative A Glucose, UA (test code = 365) 100 mg/dL Negative A Ketones, UA (test code = 2514-8) Trace Negative A Bilirubin, UA (test code = Positive Negative A 82036-5) Blood, UA (test code = 07669-3) Moderate Negative A Nitrite, UA (test code = 5802-4) Negative Negative Leukocytes, UA (test code = Moderate Negative A 5799-2) Urobilinogen, UA (test code = 0.2 18024-2) Specimen Source (test code = 2795) Lab Interpretation (test code = Abnormal 44819-8) [facility] [id number] 06:26:45 Test Item Value Reference Range Interpretation Comments Color, UA (test code = 5778-6) Yellow Clarity, UA (test code = 5767-9) Cloudy Specific Cook Sta, UA (test code = 1.001-1.035 5811-5) pH, UA (test code = 5803-2) 5.0 5.0-8.0 Protein, UA (test code = 81756-5) >=300 mg/dL Negative A Glucose, UA (test code = 365) 100 mg/dL Negative A Ketones, UA (test code = 2514-8) Trace Negative A Bilirubin, UA (test code = Positive Negative A 24013-9) Blood, UA (test code = 77419-5) Moderate Negative A Nitrite, UA (test code = 5802-4) Negative Negative Leukocytes, UA (test code = Moderate Negative A 5799-2) Urobilinogen, UA (test code = 0.2 64032-3) Specimen Source (test code = 2795) Lab Interpretation (test code = Abnormal 25231-3) [facility] [id number] 06:26:45 Test Item Value Reference Range Interpretation Comments Color, UA (test code = 5778-6) Yellow Clarity, UA (test code = 5767-9) Cloudy Specific Cook Sta, UA (test code = 1.001-1.035 5811-5) pH, UA (test code = 5803-2) 5.0 5.0-8.0 Protein, UA (test code = 38803-5) >=300 mg/dL Negative A Glucose, UA (test code = 365) 100 mg/dL Negative A Ketones, UA (test code = 2514-8) Trace Negative A Bilirubin, UA (test code = Positive Negative A 65259-0) Blood, UA (test code = 04522-9) Moderate Negative A Nitrite, UA (test code = 5802-4) Negative Negative Leukocytes, UA (test code = Moderate Negative A 5799-2) Urobilinogen, UA (test code = 0.2 44112-3) Specimen Source (test code = 2795) Lab Interpretation (test code = Abnormal 34846-3) [facility] [id number] 06:26:45 Test Item Value Reference Range Interpretation Comments Color, UA (test code = 5778-6) Yellow Clarity, UA (test code = 5767-9) Cloudy Specific Cook Sta, UA (test code = 1.001-1.035 5811-5) pH, UA (test code = 5803-2) 5.0 5.0-8.0 Protein, UA (test code = 82009-9) >=300 mg/dL Negative A Glucose, UA (test code = 365) 100 mg/dL Negative A Ketones, UA (test code = 2514-8) Trace Negative A Bilirubin, UA (test code = Positive Negative A 89565-2) Blood, UA (test code = 92408-3) Moderate Negative A Nitrite, UA (test code = 5802-4) Negative Negative Leukocytes, UA (test code = Moderate Negative A 5799-2) Urobilinogen, UA (test code = 0.2 11718-6) Specimen Source (test code = 2795) Lab Interpretation (test code = Abnormal 85497-5) [facility] [id number] 06:26:45 Test Item Value Reference Range Interpretation Comments Color, UA (test code = 5778-6) Yellow Clarity, UA (test code = 5767-9) Cloudy Specific Cook Sta, UA (test code = 1.001-1.035 5811-5) pH, UA (test code = 5803-2) 5.0 5.0-8.0 Protein, UA (test code = 50681-5) >=300 mg/dL Negative A Glucose, UA (test code = 365) 100 mg/dL Negative A Ketones, UA (test code = 2514-8) Trace Negative A Bilirubin, UA (test code = Positive Negative A 53319-6) Blood, UA (test code = 80915-4) Moderate Negative A Nitrite, UA (test code = 5802-4) Negative Negative Leukocytes, UA (test code = Moderate Negative A 5799-2) Urobilinogen, UA (test code = 0.2 96184-4) Specimen Source (test code = 2795) Lab Interpretation (test code = Abnormal 73837-7) [facility] [id number] 06:26:45 Test Item Value Reference Range Interpretation Comments Color, UA (test code = 5778-6) Yellow Clarity, UA (test code = 5767-9) Cloudy Specific Cook Sta, UA (test code = 1.001-1.035 5811-5) pH, UA (test code = 5803-2) 5.0 5.0-8.0 Protein, UA (test code = 14395-4) >=300 mg/dL Negative A Glucose, UA (test code = 365) 100 mg/dL Negative A Ketones, UA (test code = 2514-8) Trace Negative A Bilirubin, UA (test code = Positive Negative A 20069-1) Blood, UA (test code = 55324-4) Moderate Negative A Nitrite, UA (test code = 5802-4) Negative Negative Leukocytes, UA (test code = Moderate Negative A 5799-2) Urobilinogen, UA (test code = 0.2 09372-0) Specimen Source (test code = 2795) Lab Interpretation (test code = Abnormal 46565-9) [facility] [id number] 06:26:45 Test Item Value Reference Range Interpretation Comments Color, UA (test code = 5778-6) Yellow Clarity, UA (test code = 5767-9) Cloudy Specific Cook Sta, UA (test code = 1.001-1.035 5811-5) pH, UA (test code = 5803-2) 5.0 5.0-8.0 Protein, UA (test code = 18419-5) >=300 mg/dL Negative A Glucose, UA (test code = 365) 100 mg/dL Negative A Ketones, UA (test code = 2514-8) Trace Negative A Bilirubin, UA (test code = Positive Negative A 26752-5) Blood, UA (test code = 31995-4) Moderate Negative A Nitrite, UA (test code = 5802-4) Negative Negative Leukocytes, UA (test code = Moderate Negative A 5799-2) Urobilinogen, UA (test code = 0.2 46237-9) Specimen Source (test code = 2795) Lab Interpretation (test code = Abnormal 96106-3) [facility] [id number] 06:26:45 Test Item Value Reference Range Interpretation Comments Color, UA (test code = 5778-6) Yellow Clarity, UA (test code = 5767-9) Cloudy Specific Cook Sta, UA (test code = 1.001-1.035 5811-5) pH, UA (test code = 5803-2) 5.0 5.0-8.0 Protein, UA (test code = 18650-8) >=300 mg/dL Negative A Glucose, UA (test code = 365) 100 mg/dL Negative A Ketones, UA (test code = 2514-8) Trace Negative A Bilirubin, UA (test code = Positive Negative A 20857-9) Blood, UA (test code = 34374-9) Moderate Negative A Nitrite, UA (test code = 5802-4) Negative Negative Leukocytes, UA (test code = Moderate Negative A 5799-2) Urobilinogen, UA (test code = 0.2 88490-2) Specimen Source (test code = 2795) Lab Interpretation (test code = Abnormal 98632-9) [facility] [id number] 06:26:45 Test Item Value Reference Range Interpretation Comments Color, UA (test code = 5778-6) Yellow Clarity, UA (test code = 5767-9) Cloudy Specific Cook Sta, UA (test code = 1.001-1.035 5811-5) pH, UA (test code = 5803-2) 5.0 5.0-8.0 Protein, UA (test code = 24011-9) >=300 mg/dL Negative A Glucose, UA (test code = 365) 100 mg/dL Negative A Ketones, UA (test code = 2514-8) Trace Negative A Bilirubin, UA (test code = Positive Negative A 20974-7) Blood, UA (test code = 94713-4) Moderate Negative A Nitrite, UA (test code = 5802-4) Negative Negative Leukocytes, UA (test code = Moderate Negative A 5799-2) Urobilinogen, UA (test code = 0.2 45900-3) Specimen Source (test code = 2795) Lab Interpretation (test code = Abnormal 12253-3) [facility] [id number] 06:26:45 Test Item Value Reference Range Interpretation Comments Color, UA (test code = 5778-6) Yellow Clarity, UA (test code = 5767-9) Cloudy Specific Cook Sta, UA (test code = 1.001-1.035 5811-5) pH, UA (test code = 5803-2) 5.0 5.0-8.0 Protein, UA (test code = 51068-6) >=300 mg/dL Negative A Glucose, UA (test code = 365) 100 mg/dL Negative A Ketones, UA (test code = 2514-8) Trace Negative A Bilirubin, UA (test code = Positive Negative A 93275-3) Blood, UA (test code = 81119-1) Moderate Negative A Nitrite, UA (test code = 5802-4) Negative Negative Leukocytes, UA (test code = Moderate Negative A 5799-2) Urobilinogen, UA (test code = 0.2 44258-9) Specimen Source (test code = 2795) Lab Interpretation (test code = Abnormal 73982-1) [facility] [id number] 06:26:45 Test Item Value Reference Range Interpretation Comments Color, UA (test code = 5778-6) Yellow Clarity, UA (test code = 5767-9) Cloudy Specific Cook Sta, UA (test code = 1.001-1.035 5811-5) pH, UA (test code = 5803-2) 5.0 5.0-8.0 Protein, UA (test code = 68164-3) >=300 mg/dL Negative A Glucose, UA (test code = 365) 100 mg/dL Negative A Ketones, UA (test code = 2514-8) Trace Negative A Bilirubin, UA (test code = Positive Negative A 90949-3) Blood, UA (test code = 91827-6) Moderate Negative A Nitrite, UA (test code = 5802-4) Negative Negative Leukocytes, UA (test code = Moderate Negative A 5799-2) Urobilinogen, UA (test code = 0.2 05437-8) Specimen Source (test code = 2795) Lab Interpretation (test code = Abnormal 70878-1) [facility] [id number] 06:26:45 Test Item Value Reference Range Interpretation Comments Color, UA (test code = 5778-6) Yellow Clarity, UA (test code = 5767-9) Cloudy Specific Cook Sta, UA (test code = 1.001-1.035 5811-5) pH, UA (test code = 5803-2) 5.0 5.0-8.0 Protein, UA (test code = 11080-4) >=300 mg/dL Negative A Glucose, UA (test code = 365) 100 mg/dL Negative A Ketones, UA (test code = 2514-8) Trace Negative A Bilirubin, UA (test code = Positive Negative A 80228-6) Blood, UA (test code = 78718-2) Moderate Negative A Nitrite, UA (test code = 5802-4) Negative Negative Leukocytes, UA (test code = Moderate Negative A 5799-2) Urobilinogen, UA (test code = 0.2 78828-0) Specimen Source (test code = 2795) Lab Interpretation (test code = Abnormal 48893-1) [facility] [id number] 06:26:45 Test Item Value Reference Range Interpretation Comments Color, UA (test code = 5778-6) Yellow Clarity, UA (test code = 5767-9) Cloudy Specific Cook Sta, UA (test code = 1.001-1.035 5811-5) pH, UA (test code = 5803-2) 5.0 5.0-8.0 Protein, UA (test code = 01092-8) >=300 mg/dL Negative A Glucose, UA (test code = 365) 100 mg/dL Negative A Ketones, UA (test code = 2514-8) Trace Negative A Bilirubin, UA (test code = Positive Negative A 52609-5) Blood, UA (test code = 94149-6) Moderate Negative A Nitrite, UA (test code = 5802-4) Negative Negative Leukocytes, UA (test code = Moderate Negative A 5799-2) Urobilinogen, UA (test code = 0.2 49016-7) Specimen Source (test code = 2795) Lab Interpretation (test code = Abnormal 77806-8) [facility] [id number] 06:26:45 Test Item Value Reference Range Interpretation Comments Color, UA (test code = 5778-6) Yellow Clarity, UA (test code = 5767-9) Cloudy Specific Cook Sta, UA (test code = 1.001-1.035 5811-5) pH, UA (test code = 5803-2) 5.0 5.0-8.0 Protein, UA (test code = 50626-3) >=300 mg/dL Negative A Glucose, UA (test code = 365) 100 mg/dL Negative A Ketones, UA (test code = 2514-8) Trace Negative A Bilirubin, UA (test code = Positive Negative A 19996-5) Blood, UA (test code = 87751-7) Moderate Negative A Nitrite, UA (test code = 5802-4) Negative Negative Leukocytes, UA (test code = Moderate Negative A 5799-2) Urobilinogen, UA (test code = 0.2 27320-3) Specimen Source (test code = 2795) Lab Interpretation (test code = Abnormal 23915-8) [facility] [id number] 06:26:45 Test Item Value Reference Range Interpretation Comments Color, UA (test code = 5778-6) Yellow Clarity, UA (test code = 5767-9) Cloudy Specific Cook Sta, UA (test code = 1.001-1.035 5811-5) pH, UA (test code = 5803-2) 5.0 5.0-8.0 Protein, UA (test code = 52219-4) >=300 mg/dL Negative A Glucose, UA (test code = 365) 100 mg/dL Negative A Ketones, UA (test code = 2514-8) Trace Negative A Bilirubin, UA (test code = Positive Negative A 66124-1) Blood, UA (test code = 61002-1) Moderate Negative A Nitrite, UA (test code = 5802-4) Negative Negative Leukocytes, UA (test code = Moderate Negative A 5799-2) Urobilinogen, UA (test code = 0.2 28524-3) Specimen Source (test code = 2795) Lab Interpretation (test code = Abnormal 80357-3) [facility] [id number] 06:26:45 Test Item Value Reference Range Interpretation Comments Color, UA (test code = 5778-6) Yellow Clarity, UA (test code = 5767-9) Cloudy Specific Cook Sta, UA (test code = 1.001-1.035 5811-5) pH, UA (test code = 5803-2) 5.0 5.0-8.0 Protein, UA (test code = 67831-1) >=300 mg/dL Negative A Glucose, UA (test code = 365) 100 mg/dL Negative A Ketones, UA (test code = 2514-8) Trace Negative A Bilirubin, UA (test code = Positive Negative A 97049-3) Blood, UA (test code = 97318-9) Moderate Negative A Nitrite, UA (test code = 5802-4) Negative Negative Leukocytes, UA (test code = Moderate Negative A 5799-2) Urobilinogen, UA (test code = 0.2 70308-4) Specimen Source (test code = 2795) Lab Interpretation (test code = Abnormal 62662-7) [facility] [id number] 06:26:45 Test Item Value Reference Range Interpretation Comments Color, UA (test code = 5778-6) Yellow Clarity, UA (test code = 5767-9) Cloudy Specific Cook Sta, UA (test code = 1.001-1.035 5811-5) pH, UA (test code = 5803-2) 5.0 5.0-8.0 Protein, UA (test code = 92769-4) >=300 mg/dL Negative A Glucose, UA (test code = 365) 100 mg/dL Negative A Ketones, UA (test code = 2514-8) Trace Negative A Bilirubin, UA (test code = Positive Negative A 82090-8) Blood, UA (test code = 59548-6) Moderate Negative A Nitrite, UA (test code = 5802-4) Negative Negative Leukocytes, UA (test code = Moderate Negative A 5799-2) Urobilinogen, UA (test code = 0.2 82517-8) Specimen Source (test code = 2795) Lab Interpretation (test code = Abnormal 72144-1) [facility] [id number] 06:26:45 Test Item Value Reference Range Interpretation Comments Color, UA (test code = 5778-6) Yellow Clarity, UA (test code = 5767-9) Cloudy Specific Cook Sta, UA (test code = 1.001-1.035 5811-5) pH, UA (test code = 5803-2) 5.0 5.0-8.0 Protein, UA (test code = 45783-4) >=300 mg/dL Negative A Glucose, UA (test code = 365) 100 mg/dL Negative A Ketones, UA (test code = 2514-8) Trace Negative A Bilirubin, UA (test code = Positive Negative A 01372-1) Blood, UA (test code = 87851-8) Moderate Negative A Nitrite, UA (test code = 5802-4) Negative Negative Leukocytes, UA (test code = Moderate Negative A 5799-2) Urobilinogen, UA (test code = 0.2 95581-9) Specimen Source (test code = 2795) Lab Interpretation (test code = Abnormal 79053-8) [facility] [id number] 06:26:45 Test Item Value Reference Range Interpretation Comments Color, UA (test code = 5778-6) Yellow Clarity, UA (test code = 5767-9) Cloudy Specific Cook Sta, UA (test code = 1.001-1.035 5811-5) pH, UA (test code = 5803-2) 5.0 5.0-8.0 Protein, UA (test code = 54811-5) >=300 mg/dL Negative A Glucose, UA (test code = 365) 100 mg/dL Negative A Ketones, UA (test code = 2514-8) Trace Negative A Bilirubin, UA (test code = Positive Negative A 90597-0) Blood, UA (test code = 04073-9) Moderate Negative A Nitrite, UA (test code = 5802-4) Negative Negative Leukocytes, UA (test code = Moderate Negative A 5799-2) Urobilinogen, UA (test code = 0.2 17152-3) Specimen Source (test code = 2795) Lab Interpretation (test code = Abnormal 95154-1) [facility] [id number] 06:26:45 Test Item Value Reference Range Interpretation Comments Color, UA (test code = 5778-6) Yellow Clarity, UA (test code = 5767-9) Cloudy Specific [place], UA (test code = 1.001-1.035 5811-5) pH, UA (test code = 5803-2) 5.0 5.0-8.0 Protein, UA (test code = 99969-0) >=300 mg/dL Negative A Glucose, UA (test code = 365) 100 mg/dL Negative A Ketones, UA (test code = 2514-8) Trace Negative A Bilirubin, UA (test code = Positive Negative A 93759-1) Blood, UA (test code = 84230-6) Moderate Negative A Nitrite, UA (test code = 5802-4) Negative Negative Leukocytes, UA (test code = Moderate Negative A 5799-2) Urobilinogen, UA (test code = 0.2 93216-2) Specimen Source (test code = 2795) Lab Interpretation (test code = Abnormal 70870-9) [facility] [id number] 06:26:45 Test Item Value Reference Range Interpretation [...] (test code = 2795) Rapid Influenza A&B Linyag6005-34-77 06:16:47 Test Item Value Reference Range Interpretation Comments Rapid Influenza A Antigen Negative Negative, Inconclusive (test code = 01767-6) Rapid influenza B Antigen Negative Negative, Inconclusive (test code = 83886-2) Lab Interpretation (test code Normal = 84996-2) [facility] Gsmdsw0311-56-32 06:16:47 Test Item Value Reference Range Interpretation Comments Rapid Influenza A Antigen Negative Negative, Inconclusive (test code = 92782-9) Rapid influenza B Antigen Negative Negative, Inconclusive (test code = 58803-4) Lab Interpretation (test code Normal = 70007-0) [facility] Influenza A&B Aoiyuv5338-45-89 06:16:47 Test Item Value Reference Range Interpretation Comments Rapid Influenza A Antigen Negative Negative, Inconclusive (test code = 62896-4) Rapid influenza B Antigen Negative Negative, Inconclusive (test code = 24735-5) Lab Interpretation (test code Normal = 85731-8) [facility] Influenza A&B Dgltts7605-60-90 06:16:47 Test Item Value Reference Range Interpretation Comments Rapid Influenza A Antigen Negative Negative, Inconclusive (test code = 32119-0) Rapid influenza B Antigen Negative Negative, Inconclusive (test code = 12584-2) Lab Interpretation (test code Normal = 09466-4) [facility] Influenza A&B Etrsmq5913-43-57 06:16:47 Test Item Value Reference Range Interpretation Comments Rapid Influenza A Antigen Negative Negative, Inconclusive (test code = 17740-6) Rapid influenza B Antigen Negative Negative, Inconclusive (test code = 83947-2) Lab Interpretation (test code Normal = 24613-3) [facility] Influenza A&B Ccaawh7428-38-01 06:16:47 Test Item Value Reference Range Interpretation Comments Rapid Influenza A Antigen Negative Negative, Inconclusive (test code = 22340-0) Rapid influenza B Antigen Negative Negative, Inconclusive (test code = 40410-3) Lab Interpretation (test code Normal = 65919-9) [facility] Influenza A&B Szfmpb2782-46-45 06:16:47 Test Item Value Reference Range Interpretation Comments Rapid Influenza A Antigen Negative Negative, Inconclusive (test code = 63708-8) Rapid influenza B Antigen Negative Negative, Inconclusive (test code = 79562-4) Lab Interpretation (test code Normal = 47074-9) [facility] Influenza A&B Tziwur2239-29-52 06:16:47 Test Item Value Reference Range Interpretation Comments Rapid Influenza A Antigen Negative Negative, Inconclusive (test code = 62212-6) Rapid influenza B Antigen Negative Negative, Inconclusive (test code = 55654-4) Lab Interpretation (test code Normal = 46175-0) [facility] Influenza A&B Ofxssg7102-43-93 06:16:47 Test Item Value Reference Range Interpretation Comments Rapid Influenza A Antigen Negative Negative, Inconclusive (test code = 24089-2) Rapid influenza B Antigen Negative Negative, Inconclusive (test code = 94831-4) Lab Interpretation (test code Normal = 36242-5) [facility] Influenza A&B Idxgfw9536-10-88 06:16:47 Test Item Value Reference Range Interpretation Comments Rapid Influenza A Antigen Negative Negative, Inconclusive (test code = 77046-9) Rapid influenza B Antigen Negative Negative, Inconclusive (test code = 67258-2) Lab Interpretation (test code Normal = 78392-4) [facility] Influenza A&B Qdcgwm3560-08-54 06:16:47 Test Item Value Reference Range Interpretation Comments Rapid Influenza A Antigen Negative Negative, Inconclusive (test code = 23459-4) Rapid influenza B Antigen Negative Negative, Inconclusive (test code = 23564-4) Lab Interpretation (test code Normal = 90194-3) [facility] Influenza A&B Oslbzh2986-19-78 06:16:47 Test Item Value Reference Range Interpretation Comments Rapid Influenza A Antigen Negative Negative, Inconclusive (test code = 40826-2) Rapid influenza B Antigen Negative Negative, Inconclusive (test code = 00891-3) Lab Interpretation (test code Normal = 40245-7) [facility] Influenza A&B Zbbxoy4391-07-45 06:16:47 Test Item Value Reference Range Interpretation Comments Rapid Influenza A Antigen Negative Negative, Inconclusive (test code = 68075-2) Rapid influenza B Antigen Negative Negative, Inconclusive (test code = 09676-3) Lab Interpretation (test code Normal = 21802-9) [facility] Influenza A&B Dwzeua5855-29-45 06:16:47 Test Item Value Reference Range Interpretation Comments Rapid Influenza A Antigen Negative Negative, Inconclusive (test code = 18856-2) Rapid influenza B Antigen Negative Negative, Inconclusive (test code = 82086-3) Lab Interpretation (test code Normal = 74088-7) [facility] Influenza A&B Qqiaab4427-10-29 06:16:47 Test Item Value Reference Range Interpretation Comments Rapid Influenza A Antigen Negative Negative, Inconclusive (test code = 91664-8) Rapid influenza B Antigen Negative Negative, Inconclusive (test code = 05334-9) Lab Interpretation (test code Normal = 36964-3) [facility] Influenza A&B Pxlezb3399-16-31 06:16:47 Test Item Value Reference Range Interpretation Comments Rapid Influenza A Antigen Negative Negative, Inconclusive (test code = 09837-9) Rapid influenza B Antigen Negative Negative, Inconclusive (test code = 20871-7) Lab Interpretation (test code Normal = 27289-2) [facility] Influenza A&B Sfoszz5684-77-42 06:16:47 Test Item Value Reference Range Interpretation Comments Rapid Influenza A Antigen Negative Negative, Inconclusive (test code = 04470-5) Rapid influenza B Antigen Negative Negative, Inconclusive (test code = 73748-7) Lab Interpretation (test code Normal = 54096-7) [facility] Influenza A&B Gqlchs1777-55-10 06:16:47 Test Item Value Reference Range Interpretation Comments Rapid Influenza A Antigen Negative Negative, Inconclusive (test code = 31284-0) Rapid influenza B Antigen Negative Negative, Inconclusive (test code = 88921-6) Lab Interpretation (test code Normal = 81793-1) [facility] Influenza A&B Jakhoq1169-17-79 06:16:47 Test Item Value Reference Range Interpretation Comments Rapid Influenza A Antigen Negative Negative, Inconclusive (test code = 74217-5) Rapid influenza B Antigen Negative Negative, Inconclusive (test code = 10510-0) Lab Interpretation (test code Normal = 97143-7) [facility] Influenza A&B Aystzp7857-24-09 06:16:47 Test Item Value Reference Range Interpretation Comments Rapid Influenza A Antigen Negative Negative, Inconclusive (test code = 36110-9) Rapid influenza B Antigen Negative Negative, Inconclusive (test code = 16250-2) Lab Interpretation (test code Normal = 78870-4) [facility] Influenza A&B Qrrzul1794-20-20 06:16:47 Test Item Value Reference Range Interpretation Comments Rapid Influenza A Antigen Negative Negative, Inconclusive (test code = 16867-9) Rapid influenza B Antigen Negative Negative, Inconclusive (test code = 53168-2) Lab Interpretation (test code Normal = 46738-1) [facility] Influenza A&B Odqevz5393-79-55 06:16:47 Test Item Value Reference Range Interpretation Comments Rapid Influenza A Antigen Negative Negative, Inconclusive (test code = 73940-5) Rapid influenza B Antigen Negative Negative, Inconclusive (test code = 26246-6) Lab Interpretation (test code Normal = 74439-3) [facility] Influenza A&B Pinrga6310-32-31 06:16:47 Test Item Value Reference Range Interpretation Comments Rapid Influenza A Antigen Negative Negative, Inconclusive (test code = 70548-0) Rapid influenza B Antigen Negative Negative, Inconclusive (test code = 54699-5) Lab Interpretation (test code Normal = 18643-9) [facility] Influenza A&B Pvazxo5141-27-91 06:16:47 Test Item Value Reference Range Interpretation Comments Rapid Influenza A Antigen Negative Negative, Inconclusive (test code = 87735-2) Rapid influenza B Antigen Negative Negative, Inconclusive (test code = 68022-4) Lab Interpretation (test code Normal = 29019-4) [facility] Influenza A&B Thjdka2411-44-47 06:16:47 Test Item Value Reference Range Interpretation Comments Rapid Influenza A Antigen Negative Negative, Inconclusive (test code = 18116-2) Rapid influenza B Antigen Negative Negative, Inconclusive (test code = 97625-6) Lab Interpretation (test code Normal = 86983-0) [facility] Influenza A&B Zlkkcc5336-27-29 06:16:47 Test Item Value Reference Range Interpretation Comments Rapid Influenza A Antigen Negative Negative, Inconclusive (test code = 76935-4) Rapid influenza B Antigen Negative Negative, Inconclusive (test code = 74094-4) Lab Interpretation (test code Normal = 61392-1) [facility] Influenza A&B Gdriiy0790-29-12 06:16:47 Test Item Value Reference Range Interpretation Comments Rapid Influenza A Antigen Negative Negative, Inconclusive (test code = 02952-0) Rapid influenza B Antigen Negative Negative, Inconclusive (test code = 15833-9) Lab Interpretation (test code Normal = 44951-0) [facility] Influenza A&B Ktefll7510-82-08 06:16:47 Test Item Value Reference Range Interpretation Comments Rapid Influenza A Antigen Negative Negative, Inconclusive (test code = 11926-0) Rapid influenza B Antigen Negative Negative, Inconclusive (test code = 93729-1) Lab Interpretation (test code Normal = 56508-2) [facility] Influenza A&B Tmtqgd4623-66-28 06:16:47 Test Item Value Reference Range Interpretation Comments Rapid Influenza A Antigen Negative Negative, Inconclusive (test code = 81645-6) Rapid influenza B Antigen Negative Negative, Inconclusive (test code = 24834-8) Lab Interpretation (test code Normal = 75106-8) [facility] Influenza A&B Dcluvv7446-78-92 06:16:47 Test Item Value Reference Range Interpretation Comments Rapid Influenza A Antigen Negative Negative, Inconclusive (test code = 81537-2) Rapid influenza B Antigen Negative Negative, Inconclusive (test code = 10882-4) Lab Interpretation (test code Normal = 35451-4) [facility] Influenza A&B Qoqcze6827-73-28 06:16:47 Test Item Value Reference Range Interpretation Comments Rapid Influenza A Antigen Negative Negative, Inconclusive (test code = 13932-1) Rapid influenza B Antigen Negative Negative, Inconclusive (test code = 13208-2) Lab Interpretation (test code Normal = 90759-5) [facility] Influenza A&B Duljwb7198-03-19 06:16:47 Test Item Value Reference Range Interpretation Comments Rapid Influenza A Antigen Negative Negative, Inconclusive (test code = 15775-1) Rapid influenza B Antigen Negative Negative, Inconclusive (test code = 00079-3) Lab Interpretation (test code Normal = 44095-9) [facility] Influenza A&B Xcrnqp7024-38-28 06:16:47 Test Item Value Reference Range Interpretation Comments Rapid Influenza A Antigen Negative Negative, Inconclusive (test code = 05096-2) Rapid influenza B Antigen Negative Negative, Inconclusive (test code = 58512-5) Lab Interpretation (test code Normal = 60245-1) [facility] Influenza A&B Dpdgmk4113-33-69 06:16:47 Test Item Value Reference Range Interpretation Comments Rapid Influenza A Antigen Negative Negative, Inconclusive (test code = 89577-7) Rapid influenza B Antigen Negative Negative, Inconclusive (test code = 89751-0) Lab Interpretation (test code Normal = 33671-9) [facility] INFLUENZA A&B EJOUJG8752-60-71 06:16:47 Test Item Value Reference Range Interpretation Comments RAPID INFLUENZA A AG (BEAKER) Negative Negative, Inconclusive (test code = 1622) RAPID INFLUENZA B AG (BEAKER) Negative Negative, Inconclusive (test code = 1623) Rapid RSV Uaxxmpb9823-86-05 06:16:02 Test Item Value Reference Range Interpretation Comments RSV Rapid Ag (test code = Negative Negative, Inconclusive 37084-2) Lab Interpretation (test code Normal = 10558-2) [facility] RSV Boeeurj1024-35-72 06:16:02 Test Item Value Reference Range Interpretation Comments RSV Rapid Ag (test code = Negative Negative, Inconclusive 41538-8) Lab Interpretation (test code Normal = 42045-8) [facility] Enaccgl7093-31-29 06:16:02 Test Item Value Reference Range Interpretation Comments RSV Rapid Ag (test code = Negative Negative, Inconclusive 19594-2) Lab Interpretation (test code Normal = 98587-8) [facility] Hkldvfp9642-32-50 06:16:02 Test Item Value Reference Range Interpretation Comments RSV Rapid Ag (test code = Negative Negative, Inconclusive 89081-0) Lab Interpretation (test code Normal = 55415-1) [facility] RSV Zzobvef8075-72-29 06:16:02 Test Item Value Reference Range Interpretation Comments RSV Rapid Ag (test code = Negative Negative, Inconclusive 84229-8) Lab Interpretation (test code Normal = 96655-1) [facility] RSV Kqcfnls1169-39-52 06:16:02 Test Item Value Reference Range Interpretation Comments RSV Rapid Ag (test code = Negative Negative, Inconclusive 54702-2) Lab Interpretation (test code Normal = 36840-4) [facility] RSV Eserhns5194-88-58 06:16:02 Test Item Value Reference Range Interpretation Comments RSV Rapid Ag (test code = Negative Negative, Inconclusive 80307-4) Lab Interpretation (test code Normal = 69162-4) [facility] RSV Jktsekr3686-48-20 06:16:02 Test Item Value Reference Range Interpretation Comments RSV Rapid Ag (test code = Negative Negative, Inconclusive 62604-0) Lab Interpretation (test code Normal = 78522-3) [facility] RSV Fbqpwyu2532-82-50 06:16:02 Test Item Value Reference Range Interpretation Comments RSV Rapid Ag (test code = Negative Negative, Inconclusive 78837-2) Lab Interpretation (test code Normal = 39672-1) [facility] RSV Btlacdk2139-33-25 06:16:02 Test Item Value Reference Range Interpretation Comments RSV Rapid Ag (test code = Negative Negative, Inconclusive 58531-8) Lab Interpretation (test code Normal = 81167-2) [facility] RSV Afvhbsq9504-26-99 06:16:02 Test Item Value Reference Range Interpretation Comments RSV Rapid Ag (test code = Negative Negative, Inconclusive 79090-0) Lab Interpretation (test code Normal = 09182-1) [facility] RSV Hytvwof4101-76-15 06:16:02 Test Item Value Reference Range Interpretation Comments RSV Rapid Ag (test code = Negative Negative, Inconclusive 79163-5) Lab Interpretation (test code Normal = 92056-4) [facility] RSV Apkpxji0757-56-52 06:16:02 Test Item Value Reference Range Interpretation Comments RSV Rapid Ag (test code = Negative Negative, Inconclusive 84883-9) Lab Interpretation (test code Normal = 90678-4) [facility] RSV Arjapek3443-59-25 06:16:02 Test Item Value Reference Range Interpretation Comments RSV Rapid Ag (test code = Negative Negative, Inconclusive 44457-0) Lab Interpretation (test code Normal = 48530-6) [facility] RSV Cagzxxg8995-20-27 06:16:02 Test Item Value Reference Range Interpretation Comments RSV Rapid Ag (test code = Negative Negative, Inconclusive 75568-6) Lab Interpretation (test code Normal = 23573-2) [facility] RSV Fucmtud6803-75-17 06:16:02 Test Item Value Reference Range Interpretation Comments RSV Rapid Ag (test code = Negative Negative, Inconclusive 76645-5) Lab Interpretation (test code Normal = 05626-0) [facility] RSV Yvnntpv8306-06-00 06:16:02 Test Item Value Reference Range Interpretation Comments RSV Rapid Ag (test code = Negative Negative, Inconclusive 95458-1) Lab Interpretation (test code Normal = 04732-0) [facility] RSV Rsprdld8067-44-08 06:16:02 Test Item Value Reference Range Interpretation Comments RSV Rapid Ag (test code = Negative Negative, Inconclusive 44791-1) Lab Interpretation (test code Normal = 56712-1) [facility] RSV Plmwkic4131-11-10 06:16:02 Test Item Value Reference Range Interpretation Comments RSV Rapid Ag (test code = Negative Negative, Inconclusive 41271-1) Lab Interpretation (test code Normal = 68139-7) [facility] RSV Qdvfubm3000-05-05 06:16:02 Test Item Value Reference Range Interpretation Comments RSV Rapid Ag (test code = Negative Negative, Inconclusive 39628-8) Lab Interpretation (test code Normal = 22586-9) [facility] RSV Soubfet1072-04-40 06:16:02 Test Item Value Reference Range Interpretation Comments RSV Rapid Ag (test code = Negative Negative, Inconclusive 63344-6) Lab Interpretation (test code Normal = 07130-1) [facility] RSV Ypxokam1645-10-28 06:16:02 Test Item Value Reference Range Interpretation Comments RSV Rapid Ag (test code = Negative Negative, Inconclusive 62025-8) Lab Interpretation (test code Normal = 48179-4) [facility] RSV Ytemnuf0259-49-55 06:16:02 Test Item Value Reference Range Interpretation Comments RSV Rapid Ag (test code = Negative Negative, Inconclusive 13132-0) Lab Interpretation (test code Normal = 34501-0) [facility] RSV Kjtimyb7597-55-15 06:16:02 Test Item Value Reference Range Interpretation Comments RSV Rapid Ag (test code = Negative Negative, Inconclusive 14230-6) Lab Interpretation (test code Normal = 71496-8) [facility] RSV Ldkyihh3102-01-20 06:16:02 Test Item Value Reference Range Interpretation Comments RSV Rapid Ag (test code = Negative Negative, Inconclusive 60083-9) Lab Interpretation (test code Normal = 22337-5) [facility] RSV Zlaygze9645-96-12 06:16:02 Test Item Value Reference Range Interpretation Comments RSV Rapid Ag (test code = Negative Negative, Inconclusive 39952-8) Lab Interpretation (test code Normal = 87937-2) [facility] RSV Ctybwnt4113-74-38 06:16:02 Test Item Value Reference Range Interpretation Comments RSV Rapid Ag (test code = Negative Negative, Inconclusive 40601-0) Lab Interpretation (test code Normal = 37023-6) [facility] RSV Cecjarf0420-18-86 06:16:02 Test Item Value Reference Range Interpretation Comments RSV Rapid Ag (test code = Negative Negative, Inconclusive 71920-2) Lab Interpretation (test code Normal = 73151-2) [facility] RSV Anozfzu3943-45-70 06:16:02 Test Item Value Reference Range Interpretation Comments RSV Rapid Ag (test code = Negative Negative, Inconclusive 41918-4) Lab Interpretation (test code Normal = 72237-6) [facility] RSV Szxqdmb4989-83-32 06:16:02 Test Item Value Reference Range Interpretation Comments RSV Rapid Ag (test code = Negative Negative, Inconclusive 49702-3) Lab Interpretation (test code Normal = 50831-8) [facility] RSV Svlzdjp5124-56-18 06:16:02 Test Item Value Reference Range Interpretation Comments RSV Rapid Ag (test code = Negative Negative, Inconclusive 48524-8) Lab Interpretation (test code Normal = 79286-4) [facility] RSV Hkdcbmf1369-54-78 06:16:02 Test Item Value Reference Range Interpretation Comments RSV Rapid Ag (test code = Negative Negative, Inconclusive 13455-8) Lab Interpretation (test code Normal = 72222-8) [facility] RSV Lhlkxws7670-83-20 06:16:02 Test Item Value Reference Range Interpretation Comments RSV Rapid Ag (test code = Negative Negative, Inconclusive 90846-7) Lab Interpretation (test code Normal = 18174-1) [facility] RSV Pjlqzls7497-35-20 06:16:02 Test Item Value Reference Range Interpretation Comments RSV Rapid Ag (test code = Negative Negative, Inconclusive 37261-9) Lab Interpretation (test code Normal = 37881-5) [facility] RSV HZXCRNM0192-42-83 06:16:02 Test Item Value Reference Range Interpretation Comments RSV RAPID ANTIGEN (BEAKER) Negative Negative, Inconclusive (test code = 1078) SARS-CoV2/RT-PCR (Symptomatic ONLY)2022-11-30 06:15:02 Test Item Value Reference Interpretation Comments Range SARS-COV2/RT-PCR Negative Negative The SARS-Co V-2 (test code = target nucleic 42084-9) acids are not detected in thi s [...] revoked sooner. Fact Sheet for Healthcare Providers: https://www.[employer]/Documents/Xp ert%20Xpress%20SAR S%20CoV-2/Fact%20S heets/302-3802%20S ARS-COV-2%20HEALTH CARE%20PROVIDERS%2 0FACT%20SHEET.pdf Fact Sheet for Healthcare Patients: https://www.[employer]/Documents/Xp ert%20Xpress%20SAR S%20CoV-2/Fact%20S heets/302-3801%20S ARS-COV-2%20PATIEN T%20FACT%20SHEET.p df Lab Interpretation Normal (test code = 62178-6) [facility] 06:15:02 Test Item Value Reference Interpretation Comments Range SARS-COV2/RT-PCR Negative Negative The SARS-Co V-2 (test code = target nucleic 34014-3) acids are not detected in thi s [...] revoked sooner. Fact Sheet for Healthcare Providers: https://www.[employer]/Documents/Xp ert%20Xpress%20SAR S%20CoV-2/Fact%20S heets/302-3802%20S ARS-COV-2%20HEALTH CARE%20PROVIDERS%2 0FACT%20SHEET.pdf Fact Sheet for Healthcare Patients: https://www.[employer]/Documents/Xp ert%20Xpress%20SAR S%20CoV-2/Fact%20S heets/302-3801%20S ARS-COV-2%20PATIEN T%20FACT%20SHEET.p df Lab Interpretation Normal (test code = 84500-5) [facility]2022-11-30 06:15:02 Test Item Value Reference Interpretation Comments Range SARS-COV2/RT-PCR Negative Negative The SARS-Co V-2 (test code = target nucleic 88132-6) acids are not detected in thi s [...] revoked sooner. Fact Sheet for Healthcare Providers: https://www.[employer]/Documents/Xp ert%20Xpress%20SAR S%20CoV-2/Fact%20S heets/302-3802%20S ARS-COV-2%20HEALTH CARE%20PROVIDERS%2 0FACT%20SHEET.pdf Fact Sheet for Healthcare Patients: https://www.[employer]/Documents/Xp ert%20Xpress%20SAR S%20CoV-2/Fact%20S heets/302-3801%20S ARS-COV-2%20PATIEN T%20FACT%20SHEET.p df Lab Interpretation Normal (test code = 86934-7) [facility]2022-11-30 06:15:02 Test Item Value Reference Interpretation Comments Range SARS-COV2/RT-PCR Negative Negative The SARS-Co V-2 (test code = target nucleic 23030-9) acids are not detected in thi s [...] om SARS-CoV-2 in a nasopharyngeal swab specimen [facility] from individual s suspected of COVID-19 by [...] revoked sooner. Fact Sheet for Healthcare Providers: https://www.[employer]/Documents/Xp ert%20Xpress%20SAR S%20CoV-2/Fact%20S heets/302-3802%20S ARS-COV-2%20HEALTH CARE%20PROVIDERS%2 0FACT%20SHEET.pdf Fact Sheet for Healthcare Patients: https://www.[employer]/Documents/Xp ert%20Xpress%20SAR S%20CoV-2/Fact%20S heets/302-3801%20S ARS-COV-2%20PATIEN T%20FACT%20SHEET.p df Lab Interpretation Normal (test code = 18629-9) [facility]2022-11-30 06:15:02 Test Item Value Reference Interpretation Comments Range SARS-COV2/RT-PCR Negative Negative The SARS-Co V-2 (test code = target nucleic 54645-4) acids are not detected in thi s [...] revoked sooner. Fact Sheet for Healthcare Providers: https://www.[employer]/Documents/Xp ert%20Xpress%20SAR S%20CoV-2/Fact%20S heets/302-3802%20S ARS-COV-2%20HEALTH CARE%20PROVIDERS%2 0FACT%20SHEET.pdf Fact Sheet for Healthcare Patients: https://www.[employer]/Documents/Xp ert%20Xpress%20SAR S%20CoV-2/Fact%20S heets/302-3801%20S ARS-COV-2%20PATIEN T%20FACT%20SHEET.p df Lab Interpretation Normal (test code = 15434-0) [facility]2022-11-30 06:15:02 Test Item Value Reference Interpretation Comments Range SARS-COV2/RT-PCR Negative Negative The SARS-Co V-2 (test code = target nucleic 15015-4) acids are not detected in thi s specimen. Negat rcoio results do not preclude SARS-C oV-2 infection [...] revoked sooner. Fact Sheet for Healthcare Providers: https://www.[employer]/Documents/Xp ert%20Xpress%20SAR S%20CoV-2/Fact%20S heets/302-3802%20S ARS-COV-2%20HEALTH CARE%20PROVIDERS%2 0FACT%20SHEET.pdf Fact Sheet for Healthcare Patients: https://www.[employer]/Documents/Xp ert%20Xpress%20SAR S%20CoV-2/Fact%20S heets/302-3801%20S ARS-COV-2%20PATIEN T%20FACT%20SHEET.p df Lab Interpretation Normal (test code = 33507-9) [facility] [facility]-30 06:15:02 Test Item Value Reference Interpretation Comments Range SARS-COV2/RT-PCR Negative Negative The SARS-Co V-2 (test code = target nucleic 87472-2) acids are not detected in thi s [...] revoked sooner. Fact Sheet for Healthcare Providers: https://www.[employer]/Documents/Xp ert%20Xpress%20SAR S%20CoV-2/Fact%20S heets/3023802%20S ARS-COV-2%20HEALTH CARE%20PROVIDERS%2 0FACT%20SHEET.pdf Fact Sheet for Healthcare Patients: https://www.[employer]/Documents/Xp ert%20Xpress%20SAR S%20CoV-2/Fact%20S heets/302-3801%20S ARS-COV-2%20PATIEN T%20FACT%20SHEET.p df Lab Interpretation Normal (test code = 50708-2) [facility] 06:15:02 Test Item Value Reference Interpretation Comments Range SARS-COV2/RT-PCR Negative Negative The SARS-Co V-2 (test code = target nucleic 12510-6) acids are not detected in thi s [...] revoked sooner. Fact Sheet for Healthcare Providers: https://www.[employer]/Documents/Xp ert%20Xpress%20SAR S%20CoV-2/Fact%20S heets/302-3802%20S ARS-COV-2%20HEALTH CARE%20PROVIDERS%2 0FACT%20SHEET.pdf Fact Sheet for Healthcare Patients: https://www.[employer]/Documents/Xp ert%20Xpress%20SAR S%20CoV-2/Fact%20S heets/302-3801%20S ARS-COV-2%20PATIEN T%20FACT%20SHEET.p df Lab Interpretation Normal (test code = 79218-3) [facility] 06:15:02 Test Item Value Reference Interpretation Comments Range SARS-COV2/RT-PCR Negative Negative The SARS-Co V-2 (test code = target nucleic 67189-8) acids are not detected in thi s [...] revoked sooner. Fact Sheet for Healthcare Providers: https://www.[employer]/Documents/Xp ert%20Xpress%20SAR S%20CoV-2/Fact%20S heets/302-3802%20S ARS-COV-2%20HEALTH CARE%20PROVIDERS%2 0FACT%20SHEET.pdf Fact Sheet for Healthcare Patients: https://www.[employer]/Documents/Xp ert%20Xpress%20SAR S%20CoV-2/Fact%20S heets/302-3801%20S ARS-COV-2%20PATIEN T%20FACT%20SHEET.p df Lab Interpretation Normal (test code = 45082-6) [facility] 06:15:02 Test Item Value Reference Interpretation Comments Range SARS-COV2/RT-PCR Negative Negative The SARS-Co V-2 (test code = target nucleic 55664-6) acids are not detected in thi s [...] revoked sooner. Fact Sheet for Healthcare Providers: https://www.[employer]/Documents/Xp ert%20Xpress%20SAR S%20CoV-2/Fact%20S heets/302-7536%20S ARS-COV-2%20HEALTH CARE%20PROVIDERS%2 0FACT%20SHEET.pdf Fact Sheet for Healthcare Patients: https://www.[employer]/Documents/Xp ert%20Xpress%20SAR S%20CoV-2/Fact%20S heets/302-3511%20S ARS-COV-2%20PATIEN T%20FACT%20SHEET.p df Lab Interpretation Normal (test code = 38024-4) [facility]22[facility]-30 06:15:02 Test Item Value Reference Interpretation Comments Range SARS-COV2/RT-PCR Negative Negative The SARS-Co V-2 (test code = target nucleic 35877-4) acids are not detected in thi s [...] revoked sooner. Fact Sheet for Healthcare Providers: https://www.[employer]/Documents/Xp ert%20Xpress%20SAR S%20CoV-2/Fact%20S heets/302-3802%20S ARS-COV-2%20HEALTH CARE%20PROVIDERS%2 0FACT%20SHEET.pdf Fact Sheet for Healthcare Patients: https://www.[employer]/Documents/Xp ert%20Xpress%20SAR S%20CoV-2/Fact%20S heets/302-3801%20S ARS-COV-2%20PATIEN T%20FACT%20SHEET.p df Lab Interpretation Normal (test code = 23219-2) [facility]2022-[facility]-30 06:15:02 Test Item Value Reference Interpretation Comments Range SARS-COV2/RT-PCR Negative Negative The SARS-Co V-2 (test code = target nucleic 73691-9) acids are not detected in thi s [...] revoked sooner. Fact Sheet for Healthcare Providers: https://www.[employer]/Documents/Xp ert%20Xpress%20SAR S%20CoV-2/Fact%20S heets/302-3802%20S ARS-COV-2%20HEALTH CARE%20PROVIDERS%2 0FACT%20SHEET.pdf Fact Sheet for Healthcare Patients: https://www.[employer]/Documents/Xp ert%20Xpress%20SAR S%20CoV-2/Fact%20S heets/302-3801%20S ARS-COV-2%20PATIEN T%20FACT%20SHEET.p df Lab Interpretation Normal (test code = 21649-8) [facility]2022-[facility]-30 06:15:02 Test Item Value Reference Interpretation Comments Range SARS-COV2/RT-PCR Negative Negative The SARS-Co V-2 (test code = target nucleic 37020-8) acids are not detected in thi s [...] revoked sooner. Fact Sheet for Healthcare Providers: https://www.[employer]/Documents/Xp ert%20Xpress%20SAR S%20CoV-2/Fact%20S heets/302-3802%20S ARS-COV-2%20HEALTH CARE%20PROVIDERS%2 0FACT%20SHEET.pdf Fact Sheet for Healthcare Patients: https://www.[employer]/Documents/Xp ert%20Xpress%20SAR S%20CoV-2/Fact%20S heets/302-3801%20S ARS-COV-2%20PATIEN T%20FACT%20SHEET.p df Lab Interpretation Normal (test code = 88355-8) [facility]2022-[facility]-30 06:15:02 Test Item Value Reference Interpretation Comments Range SARS-COV2/RT-PCR Negative Negative The SARS-Co V-2 (test code = target nucleic 71051-8) acids are not detected in thi s [...] revoked sooner. Fact Sheet for Healthcare Providers: https://www.[employer]/Documents/Xp ert%20Xpress%20SAR S%20CoV-2/Fact%20S heets/302-3802%20S ARS-COV-2%20HEALTH CARE%20PROVIDERS%2 0FACT%20SHEET.pdf Fact Sheet for Healthcare Patients: https://www.[employer]/Documents/Xp ert%20Xpress%20SAR S%20CoV-2/Fact%20S heets/302-3801%20S ARS-COV-2%20PATIEN T%20FACT%20SHEET.p df Lab Interpretation Normal (test code = 81579-6) [facility]2022-11-30 06:15:02 Test Item Value Reference Interpretation Comments Range SARS-COV2/RT-PCR Negative Negative The SARS-Co V-2 (test code = target nucleic 95236-3) acids are not detected in thi s [...] om SARS-CoV-2 in a nasopharyngeal swab specimen [facility] from individual s suspected of COVID-19 by [...] revoked sooner. Fact Sheet for Healthcare Providers: https://www.[employer]/Documents/Xp ert%20Xpress%20SAR S%20CoV-2/Fact%20S heets/302-3802%20S ARS-COV-2%20HEALTH CARE%20PROVIDERS%2 0FACT%20SHEET.pdf Fact Sheet for Healthcare Patients: https://www.[employer]/Documents/Xp ert%20Xpress%20SAR S%20CoV-2/Fact%20S heets/302-3801%20S ARS-COV-2%20PATIEN T%20FACT%20SHEET.p df Lab Interpretation Normal (test code = 00926-3) [facility]2022-11-30 06:15:02 Test Item Value Reference Interpretation Comments Range SARS-COV2/RT-PCR Negative Negative The SARS-Co V-2 (test code = target nucleic 07329-9) acids are not detected in thi s [...] revoked sooner. Fact Sheet for Healthcare Providers: https://www.[employer]/Documents/Xp ert%20Xpress%20SAR S%20CoV-2/Fact%20S heets/302-3802%20S ARS-COV-2%20HEALTH CARE%20PROVIDERS%2 0FACT%20SHEET.pdf Fact Sheet for Healthcare Patients: https://www.[employer]/Documents/Xp ert%20Xpress%20SAR S%20CoV-2/Fact%20S heets/302-3801%20S ARS-COV-2%20PATIEN T%20FACT%20SHEET.p df Lab Interpretation Normal (test code = 49110-7) [facility]2022-11-30 06:15:02 Test Item Value Reference Interpretation Comments Range SARS-COV2/RT-PCR Negative Negative The SARS-Co V-2 (test code = target nucleic 61019-6) acids are not detected in thi s [...] revoked sooner. Fact Sheet for Healthcare Providers: https://www.[employer]/Documents/Xp ert%20Xpress%20SAR S%20CoV-2/Fact%20S heets/302-3802%20S ARS-COV-2%20HEALTH CARE%20PROVIDERS%2 0FACT%20SHEET.pdf Fact Sheet for Healthcare Patients: https://www.[employer]/Documents/Xp ert%20Xpress%20SAR S%20CoV-2/Fact%20S heets/302-3801%20S ARS-COV-2%20PATIEN T%20FACT%20SHEET.p df Lab Interpretation Normal (test code = 39144-8) [facility]2022-11-30 06:15:02 Test Item Value Reference Interpretation Comments Range SARS-COV2/RT-PCR Negative Negative The SARS-Co V-2 (test code = target nucleic 39869-4) acids are not detected in thi s [...] revoked sooner. Fact Sheet for Healthcare Providers: https://www.[employer]/Documents/Xp ert%20Xpress%20SAR S%20CoV-2/Fact%20S heets/302-3802%20S ARS-COV-2%20HEALTH CARE%20PROVIDERS%2 0FACT%20SHEET.pdf Fact Sheet for Healthcare Patients: https://[employer]/Documents/Xp ert%20Xpress%20SAR S%20CoV-2/Fact%20S heets/302-3801%20S ARS-COV-2%20PATIEN T%20FACT%20SHEET.p df Lab Interpretation Normal (test code = 88776-6) [facility]2022-11-30 06:15:02 Test Item Value Reference Interpretation Comments Range SARS-COV2/RT-PCR Negative Negative The SARS-Co V-2 (test code = target nucleic 02330-9) acids are not detected in thi s [...] revoked sooner. Fact Sheet for Healthcare Providers: https://www.[employer]/Documents/Xp ert%20Xpress%20SAR S%20CoV-2/Fact%20S heets/302-3802%20S ARS-COV-2%20HEALTH CARE%20PROVIDERS%2 0FACT%20SHEET.pdf Fact Sheet for Healthcare Patients: https://www.[employer]/Documents/Xp ert%20Xpress%20SAR S%20CoV-2/Fact%20S heets/302-3801%20S ARS-COV-2%20PATIEN T%20FACT%20SHEET.p df Lab Interpretation Normal (test code = 47734-7) [facility]2022-11-30 06:15:02 Test Item Value Reference Interpretation Comments Range SARS-COV2/RT-PCR Negative Negative The SARS-Co V-2 (test code = target nucleic 55540-2) acids are not detected in thi s [...] revoked sooner. Fact Sheet for Healthcare Providers: https://www.[employer]/Documents/Xp ert%20Xpress%20SAR S%20CoV-2/Fact%20S heets/302-3802%20S ARS-COV-2%20HEALTH CARE%20PROVIDERS%2 0FACT%20SHEET.pdf Fact Sheet for Healthcare Patients: https://www.[employer]/Documents/Xp ert%20Xpress%20SAR S%20CoV-2/Fact%20S heets/302-3801%20S ARS-COV-2%20PATIEN T%20FACT%20SHEET.p df Lab Interpretation Normal (test code = 25846-7) [facility]2022-11-30 06:15:02 Test Item Value Reference Interpretation Comments Range SARS-COV2/RT-PCR Negative Negative The SARS-Co V-2 (test code = target nucleic 30645-2) acids are not detected in thi s [...] revoked sooner. Fact Sheet for Healthcare Providers: https://www.[employer]/Documents/Xp ert%20Xpress%20SAR S%20CoV-2/Fact%20S heets/302-3802%20S ARS-COV-2%20HEALTH CARE%20PROVIDERS%2 0FACT%20SHEET.pdf Fact Sheet for Healthcare Patients: https://www.[employer]/Documents/Xp ert%20Xpress%20SAR S%20CoV-2/Fact%20S heets/302-3801%20S ARS-COV-2%20PATIEN T%20FACT%20SHEET.p df Lab Interpretation Normal (test code = 57910-4) [facility]2022-11-30 06:15:02 Test Item Value Reference Interpretation Comments Range SARS-COV2/RT-PCR Negative Negative The SARS-Co V-2 (test code = target nucleic 43603-2) acids are not detected in thi s [...] revoked sooner. Fact Sheet for Healthcare Providers: https://www.[employer]/Documents/Xp ert%20Xpress%20SAR S%20CoV-2/Fact%20S heets/302-3802%20S ARS-COV-2%20HEALTH CARE%20PROVIDERS%2 0FACT%20SHEET.pdf Fact Sheet for Healthcare Patients: https://www.[employer]/Documents/Xp ert%20Xpress%20SAR S%20CoV-2/Fact%20S heets/302-3801%20S ARS-COV-2%20PATIEN T%20FACT%20SHEET.p df Lab Interpretation Normal (test code = 75044-8) [facility]2022-11-30 06:15:02 Test Item Value Reference Interpretation Comments Range SARS-COV2/RT-PCR Negative Negative The SARS-Co V-2 (test code = target nucleic 83036-7) acids are not detected in thi s [...] revoked sooner. Fact Sheet for Healthcare Providers: https://www.[employer]/Documents/Xp ert%20Xpress%20SAR S%20CoV-2/Fact%20S heets/302-3802%20S ARS-COV-2%20HEALTH CARE%20PROVIDERS%2 0FACT%20SHEET.pdf Fact Sheet for Healthcare Patients: https://www.[employer]/Documents/Xp ert%20Xpress%20SAR S%20CoV-2/Fact%20S heets/302-3801%20S ARS-COV-2%20PATIEN T%20FACT%20SHEET.p df Lab Interpretation Normal (test code = 76036-3) [facility] 06:15:02 Test Item Value Reference Interpretation Comments Range SARS-COV2/RT-PCR Negative Negative The SARS-Co V-2 (test code = target nucleic 12513-6) acids are not detected in thi s [...] revoked sooner. Fact Sheet for Healthcare Providers: https://www.[employer]/Documents/Xp ert%20Xpress%20SAR S%20CoV-2/Fact%20S heets/302-3802%20S ARS-COV-2%20HEALTH CARE%20PROVIDERS%2 0FACT%20SHEET.pdf Fact Sheet for Healthcare Patients: https://www.[employer]/Documents/Xp ert%20Xpress%20SAR S%20CoV-2/Fact%20S heets/302-3801%20S ARS-COV-2%20PATIEN T%20FACT%20SHEET.p df Lab Interpretation Normal (test code = 21116-2) [facility]2022-11-30 06:15:02 Test Item Value Reference Interpretation Comments Range SARS-COV2/RT-PCR Negative Negative The SARS-Co V-2 (test code = target nucleic 30308-3) acids are not detected in thi s [...] revoked sooner. Fact Sheet for Healthcare Providers: https://www.[employer]/Documents/Xp ert%20Xpress%20SAR S%20CoV-2/Fact%20S heets/3023802%20S ARS-COV-2%20HEALTH CARE%20PROVIDERS%2 0FACT%20SHEET.pdf Fact Sheet for Healthcare Patients: https://www.[employer]/Documents/Xp ert%20Xpress%20SAR S%20CoV-2/Fact%20S heets/302-3801%20S ARS-COV-2%20PATIEN T%20FACT%20SHEET.p df Lab Interpretation Normal (test code = 00158-9) [facility]2022-11-30 06:15:02 Test Item Value Reference Interpretation Comments Range SARS-COV2/RT-PCR Negative Negative The SARS-Co V-2 (test code = target nucleic 39211-2) acids are not detected in thi s [...] revoked sooner. Fact Sheet for Healthcare Providers: https://www.[employer]/Documents/Xp ert%20Xpress%20SAR S%20CoV-2/Fact%20S heets/302-3802%20S ARS-COV-2%20HEALTH CARE%20PROVIDERS%2 0FACT%20SHEET.pdf Fact Sheet for Healthcare Patients: https://www.[employer]/Documents/Xp ert%20Xpress%20SAR S%20CoV-2/Fact%20S heets/302-3801%20S ARS-COV-2%20PATIEN T%20FACT%20SHEET.p df Lab Interpretation Normal (test code = 94092-3) [facility]2022-11-30 06:15:02 Test Item Value Reference Interpretation Comments Range SARS-COV2/RT-PCR Negative Negative The SARS-Co V-2 (test code = target nucleic 46813-6) acids are not detected in thi s [...] revoked sooner. Fact Sheet for Healthcare Providers: https://www.[employer]/Documents/Xp ert%20Xpress%20SAR S%20CoV-2/Fact%20S heets/302-3802%20S ARS-COV-2%20HEALTH CARE%20PROVIDERS%2 0FACT%20SHEET.pdf Fact Sheet for Healthcare Patients: https://www.[employer]/Documents/Xp ert%20Xpress%20SAR S%20CoV-2/Fact%20S heets/302-3801%20S ARS-COV-2%20PATIEN T%20FACT%20SHEET.p df Lab Interpretation Normal (test code = 00716-5) [facility]2022-11-30 06:15:02 Test Item Value Reference Interpretation Comments Range SARS-COV2/RT-PCR Negative Negative The SARS-Co V-2 (test code = target nucleic 74425-1) acids are not detected in thi s [...] revoked sooner. Fact Sheet for Healthcare Providers: https://www.[employer]/Documents/Xp ert%20Xpress%20SAR S%20CoV-2/Fact%20S heets/302-1086%20S ARS-COV-2%20HEALTH CARE%20PROVIDERS%2 0FACT%20SHEET.pdf Fact Sheet for Healthcare Patients: https://www.[employer]/Documents/Xp ert%20Xpress%20SAR S%20CoV-2/Fact%20S heets/302-6361%20S ARS-COV-2%20PATIEN T%20FACT%20SHEET.p df Lab Interpretation Normal (test code = 55078-3) [facility]2022-11-30 06:15:02 Test Item Value Reference Interpretation Comments Range SARS-COV2/RT-PCR Negative Negative The SARS-Co V-2 (test code = target nucleic 13444-1) acids are not detected in thi s [...] revoked sooner. Fact Sheet for Healthcare Providers: https://www.[employer]/Documents/Xp ert%20Xpress%20SAR S%20CoV-2/Fact%20S heets/302-3802%20S ARS-COV-2%20HEALTH CARE%20PROVIDERS%2 0FACT%20SHEET.pdf Fact Sheet for Healthcare Patients: https://www.[employer]/Documents/Xp ert%20Xpress%20SAR S%20CoV-2/Fact%20S heets/302-3801%20S ARS-COV-2%20PATIEN T%20FACT%20SHEET.p df Lab Interpretation Normal (test code = 47527-1) [facility]2022-11-30 06:15:02 Test Item Value Reference Interpretation Comments Range SARS-COV2/RT-PCR Negative Negative The SARS-Co V-2 (test code = target nucleic 25445-3) acids are not detected in thi s [...] revoked sooner. Fact Sheet for Healthcare Providers: https://www.[employer]/Documents/Xp ert%20Xpress%20SAR S%20CoV-2/Fact%20S heets/302-3802%20S ARS-COV-2%20HEALTH CARE%20PROVIDERS%2 0FACT%20SHEET.pdf Fact Sheet for Healthcare Patients: https://www.[employer]/Documents/Xp ert%20Xpress%20SAR S%20CoV-2/Fact%20S heets/302-3801%20S ARS-COV-2%20PATIEN T%20FACT%20SHEET.p df Lab Interpretation Normal (test code = 47629-7) [facility]2022-11-30 06:15:02 Test Item Value Reference Interpretation Comments Range SARS-COV2/RT-PCR Negative Negative The SARS-Co V-2 (test code = target nucleic 44434-1) acids are not detected in thi s [...] revoked sooner. Fact Sheet for Healthcare Providers: https://www.[employer]/Documents/Xp ert%20Xpress%20SAR S%20CoV-2/Fact%20S heets/302-3802%20S ARS-COV-2%20HEALTH CARE%20PROVIDERS%2 0FACT%20SHEET.pdf Fact Sheet for Healthcare Patients: https://www.[employer]/Documents/Xp ert%20Xpress%20SAR S%20CoV-2/Fact%20S heets/302-3801%20S ARS-COV-2%20PATIEN T%20FACT%20SHEET.p df Lab Interpretation Normal (test code = 68245-9) [facility]2022-11-30 06:15:02 Test Item Value Reference Interpretation Comments Range SARS-COV2/RT-PCR Negative Negative The SARS-Co V-2 (test code = target nucleic 36753-6) acids are not detected in thi s [...] revoked sooner. Fact Sheet for Healthcare Providers: https://www.[employer]/Documents/Xp ert%20Xpress%20SAR S%20CoV-2/Fact%20S heets/302-3802%20S ARS-COV-2%20HEALTH CARE%20PROVIDERS%2 0FACT%20SHEET.pdf Fact Sheet for Healthcare Patients: https://www.[employer]/Documents/Xp ert%20Xpress%20SAR S%20CoV-2/Fact%20S heets/302-3801%20S ARS-COV-2%20PATIEN T%20FACT%20SHEET.p df Lab Interpretation Normal (test code = 51973-2) [facility]2022-11-30 06:15:02 Test Item Value Reference Interpretation Comments Range SARS-COV2/RT-PCR Negative Negative The SARS-Co V-2 (test code = target nucleic 94188-8) acids are not detected in thi s [...] om SARS-CoV-2 in a nasopharyngeal swab specimen [facility] from individual s suspected of COVID-19 [...] revoked sooner. Fact Sheet for Healthcare Providers: https://www.[employer]/Documents/Xp ert%20Xpress%20SAR S%20CoV-2/Fact%20S heets/302-3802%20S ARS-COV-2%20HEALTH CARE%20PROVIDERS%2 0FACT%20SHEET.pdf Fact Sheet for Healthcare Patients: https://www.[employer]/Documents/Xp ert%20Xpress%20SAR S%20CoV-2/Fact%20S heets/302-3801%20S ARS-COV-2%20PATIEN T%20FACT%20SHEET.p df Lab Interpretation Normal (test code = 82075-6) [facility]2022-11-30 06:15:02 Test Item Value Reference Interpretation Comments Range SARS-COV2/RT-PCR Negative Negative The SARS-Co V-2 (test code = target nucleic 13856-1) acids are not detected in thi s [...] revoked sooner. Fact Sheet for Healthcare Providers: https://www.[employer]/Documents/Xp ert%20Xpress%20SAR S%20CoV-2/Fact%20S heets/302-3802%20S ARS-COV-2%20HEALTH CARE%20PROVIDERS%2 0FACT%20SHEET.pdf Fact Sheet for Healthcare Patients: https://www.[employer]/Documents/Xp ert%20Xpress%20SAR S%20CoV-2/Fact%20S heets/302-3801%20S ARS-COV-2%20PATIEN T%20FACT%20SHEET.p df Lab Interpretation Normal (test code = 59384-1) [facility]2022-11-30 06:15:02 Test Item Value Reference Range Interpretation Comments SARS-COV2/RT-PCR Negative Negative The SARS-Co V-2 target (test code = nucleic acids a re not 7423853) detected in thi s specimen. Negative result [...] revoked sooner. Fact Sheet for Healthcare Providers: https://www.[employer]/Documents/Xpert%20Xpress%20SARS%20CoV-2/Fact%20Sheets/3023802%15VRDR-MQS-4%20 HEALTHCARE%20PROVIDERS%20FACT%20SHEET.pdf Fact Sheet for Healthcare Patients: https://www.[employer]/Documents/Xpert%20Xp ress%20SARS%20CoV-2/Fact%20Sheets/3023801%57AEER-BAA-9%20PATIENT%20FACT%20SHEET .[id number] 05:54:57 Test Item Value Reference Range Interpretation Comments PROCALCITONIN (BEAKER) (test code 58.95 ng/mL <0.05 = 3036) SEPSIS RISK (ng/mL)Low: 0.05-0.50Intermediate: 0.51-2.00High: >=2.01Blood gas, [id number] 05:16:22 Test Item Value Reference Range Interpretation [...] 100 Lab Interpretation Abnormal (test code = 21550-5) [id number] 05:16:22 Test Item Value Reference Range Interpretation [...] 100 Lab Interpretation Abnormal (test code = 60382-4) [facility] [id number] 05:16:22 Test Item Value Reference Range Interpretation [...] 100 Lab Interpretation Abnormal (test code = 28032-2) [facility] [id number] 05:16:22 Test Item Value Reference Range Interpretation [...] 100 Lab Interpretation Abnormal (test code = 61925-2) [facility] [id number] 05:16:22 Test Item Value Reference Range Interpretation [...] 100 Lab Interpretation Abnormal (test code = 89093-1) [facility] [id number] 05:16:22 Test Item Value Reference Range Interpretation [...] 100.0 Lab Interpretation Abnormal (test code = 27026-7) [facility] [id number] 05:16:22 Test Item Value Reference Range Interpretation [...] 100.0 Lab Interpretation Abnormal (test code = 19035-4) [facility] [id number] 05:16:22 Test Item Value Reference Range Interpretation [...] 100.0 Lab Interpretation Abnormal (test code = 12844-0) [facility] [id number] 05:16:22 Test Item Value Reference Range Interpretation [...] 100.0 Lab Interpretation Abnormal (test code = 97526-5) [facility] [id number] 05:16:22 Test Item Value Reference Range Interpretation [...] 100.0 Lab Interpretation Abnormal (test code = 02483-0) [facility] [id number] 05:16:22 Test Item Value Reference Range Interpretation [...] 100 Lab Interpretation Abnormal (test code = 97984-3) [facility] [id number] 05:16:22 Test Item Value Reference Range Interpretation [...] 100.0 Lab Interpretation Abnormal (test code = 63106-1) [facility] [id number] 05:16:22 Test Item Value Reference Range Interpretation [...] 100.0 Lab Interpretation Abnormal (test code = 86525-2) [facility] gas, [id number] 05:16:22 Test Item Value Reference Range Interpretation [...] 100.0 Lab Interpretation Abnormal (test code = 69512-4) [facility] [id number] 05:16:22 Test Item Value Reference Range Interpretation [...] 100.0 Lab Interpretation Abnormal (test code = 41448-6) [facility] gas, [id number] 05:16:22 Test Item Value Reference Range Interpretation [...] 100.0 Lab Interpretation Abnormal (test code = 62870-1) [facility] [id number] 05:16:22 Test Item Value Reference Range Interpretation [...] 100.0 Lab Interpretation Abnormal (test code = 55592-3) [facility] gas, [id number] 05:16:22 Test Item Value Reference Range Interpretation [...] 100.0 Lab Interpretation Abnormal (test code = 29979-8) [facility] gas, [id number] 05:16:22 Test Item Value Reference Range Interpretation [...] 100.0 Lab Interpretation Abnormal (test code = 65471-7) [facility] gas, [id number] 05:16:22 Test Item Value Reference Range Interpretation [...] 100.0 Lab Interpretation Abnormal (test code = 55101-5) [facility] [id number] 05:16:22 Test Item Value Reference Range Interpretation [...] 100 Lab Interpretation Abnormal (test code = 00029-9) [facility] [id number] 05:16:22 Test Item Value Reference Range Interpretation [...] 100.0 Lab Interpretation Abnormal (test code = 29090-6) [facility], [id number] 05:16:22 Test Item Value Reference Range Interpretation [...] 100.0 Lab Interpretation Abnormal (test code = 74903-3) [facility] [id number] 05:16:22 Test Item Value Reference Range Interpretation [...] 100 Lab Interpretation Abnormal (test code = 24672-6) [facility], [id number] 05:16:22 Test Item Value Reference Range Interpretation [...] 100 Lab Interpretation Abnormal (test code = 29319-4) [facility] [id number] 05:16:22 Test Item Value Reference Range Interpretation [...] 100 Lab Interpretation Abnormal (test code = 63887-6) [facility], [id number] 05:16:22 Test Item Value Reference Range Interpretation [...] 100 Lab Interpretation Abnormal (test code = 60597-4) [facility] [id number] 05:16:22 Test Item Value Reference Range Interpretation [...] 100 Lab Interpretation Abnormal (test code = 27700-2) [facility] [id number] 05:16:22 Test Item Value Reference Range Interpretation [...] 100 Lab Interpretation Abnormal (test code = 34162-4) [facility] [id number] 05:16:22 Test Item Value Reference Range Interpretation [...] 100 Lab Interpretation Abnormal (test code = 25080-9) [facility] [id number] 05:16:22 Test Item Value Reference Range Interpretation [...] 100 Lab Interpretation Abnormal (test code = 32559-3) [facility], [id number] 05:16:22 Test Item Value Reference Range Interpretation [...] 100 Lab Interpretation Abnormal (test code = 52118-4) [facility] gas, [id number] 05:16:22 Test Item Value Reference Range Interpretation [...] 100 Lab Interpretation Abnormal (test code = 84698-0) [facility] [id number] 05:16:22 Test Item Value Reference Range Interpretation [...] 100.0 Lab Interpretation Abnormal (test code = 63912-7) [facility] GAS, [id number] 05:16:22 Test Item Value Reference Range Interpretation [...] FIO2 (BEAKER) (test code = 1819) 100.0 [id number] 05:09:04 Test Item Value Reference Range Interpretation Comments D-DIMER QUANTITATIVE 2.35 MG/L FEU <0.50 H Final Information (BEAKER) (test code = (Auto Output) 671) REGARDING D-DIMER RESULTS: The 98% NPV (Negative Predictive Value) for DVT/PE exclusion is 0.50 mg/LFEU as suggested by the seed laboratory technician and as approved by the FDA.PT/[id number] 05:09:04 Test Item Value Reference Range Interpretation [...] pg/mL 0-100 H (test code = 700) Deputy Building Guard ID - LITOCOMPREHENSIVE METABOLIC [id number] 04:53:02 Test Item Value Reference Range Interpretation [...] not appl icable for dialysis patien ts Deputy Building Guard ID - LITOOperator ID - LITOOperator ID - LITOOperator ID - LITOOperator ID - LITOOperator ID - LITOOperator ID - LITOOperator ID - LITOOperator ID - LITOOperator ID - LITOOperator ID - LITOOperator ID - LITOOperator ID - LITOOperator ID - LITOOperator ID - LITOOperator ID - [id number] 04:52:39 Test Item Value Reference Range Interpretation Comments PHOSPHORUS (BEAKER) (test code = 1.3 mg/dL 2.5-4.5 LL 604) Deputy Building [employer] ID - LITOCREATINE KINASE (CK)2022-11-30 04:52:28 Test Item Value Reference Range Interpretation Comments CREATINE KINASE TOTAL (BEAKER) (test 112 U/L 40-250 code = 380) Deputy Building [employer] ID - [id number] 04:51:50 Test Item Value Reference Range Interpretation Comments MAGNESIUM (BEAKER) (test code = 2.0 mg/dL 1.5-3.0 627) Deputy Building [employer] ID - LITOOperator ID - LITOOperator ID - LITOOperator ID - LITOLACTIC ACID, [id number] 04:51:42 Test Item Value Reference Range Interpretation Comments LACTATE BLOOD 3.11 mmol/L See_Comment HH Specimen sligh tly VENOUS (2) (RAVEN) hemolyze d [Automated (test code = 2872) message] The system which generated this result transmit mendoza reference range : 0.50-<2.00. The reference range was not used to interpr et this result as normal/abnormal . Deputy Building Guard ID - LITOOperator ID - LITOOperator ID - LITOOperator ID - LITORAD, CHEST, 1 VIEW, NON [id number] 04:33:00Reason for exam:->aspiration pneumoniaS[facility] : 1965 Sex: MFINAL REPORT INDICATION: aspiration pneumonia COMPARISON: None TECHNIQUE: Single frontal view of the chest. IMPRESSION: Lungs and pleura: The tracheostomy cannula terminates in the mid thoracic trachea. Hazy airspace opacities of the right lung concerning for pneumonia. Small portion of the left costophrenic angle is not included within the ouels-hi-ekfc. Left lung is otherwise clear. No effusion. Heart and mediastinum: Normal heart size. Unremarkable mediastinal contours. Osseous structures: No acute abnormality. Other: None. Signed: Deborah Palumbo [facility] Verified Date/Time: 11/30/2022 04:33:08 IUM, [id number] 04:28:52 Test Item Value Reference Range Interpretation Comments CALCIUM IONIZED (BEAKER) (test 1.19 mmol/L 1.12-1.27 code = 698) PH, BLOOD (BEAKER) (test code = 7.36 1810) POC-Glucose [id number] 04:17:40 Test Item Value Reference Range Interpretation Comments POC-Glucose Meter (test 321 mg/dL 70-110 H : TE STED AT [facility] code = 1538) [address] [place] [address]: Deputy Building Guard/Techni jr ID = [id number] for Corpin, Rizalin a Lab Interpretation (test Abnormal code = 04823-6) [facility]-Glucose [id number] 04:17:40 Test Item Value Reference Range Interpretation Comments POC-Glucose Meter (test 321 mg/dL 70-110 H : TE STED AT [facility] code = 1538) [address] [place] [address]: Deputy Building Guard/Techni jr ID = [id number] for Corpin, Rizalin a Lab Interpretation (test Abnormal code = 98072-7) [facility] [id number] 04:17:40 Test Item Value Reference Range Interpretation Comments POC-Glucose Meter (test 321 mg/dL 70-110 H : TE STED AT [facility] code = 1538) [address] [place] [address]: Deputy Building Guard/Techni jr ID = [id number] for Corpin, Rizalin a Lab Interpretation (test Abnormal code = 14726-5) [facility] [id number] 04:17:40 Test Item Value Reference Range Interpretation Comments POC-Glucose Meter (test 321 mg/dL 70-110 H : TE STED AT [facility] code = 1538) [address] [place] [address]: Deputy Building Guard/Techni jr ID = [id number] for Corpin, Rizalin a Lab Interpretation (test Abnormal code = 70403-3) [facility] [id number] 04:17:40 Test Item Value Reference Range Interpretation Comments POC-Glucose Meter (test 321 mg/dL 70-110 H : [facility] [address] [place], [place] [address]: Deputy Building Guard/Techni jr ID = [id number] for Corpin, Rizalin a Lab Interpretation (test Abnormal code = 86036-6) [facility]-Glucose [id number] 04:17:40 Test Item Value Reference Range Interpretation Comments POC-Glucose Meter (test 321 mg/dL 70-110 H : [facility] = [facility] [address] [place], [place] [address]: Deputy Building Guard/Techni jr ID = [id number] for Corpin, Rizalin a Lab Interpretation (test Abnormal code = 67697-8) [facility]-Glucose [id number] 04:17:40 Test Item Value Reference Range Interpretation Comments POC-Glucose Meter (test 321 mg/dL 70-110 H : TE STED AT [facility] code = 1538) [address] [place] [address]: Deputy Building Guard/Techni jr ID = [id number] for Corpin, Rizalin a Lab Interpretation (test Abnormal code = 52093-0) [facility]-Glucose [id number] 04:17:40 Test Item Value Reference Range Interpretation Comments POC-Glucose Meter (test 321 mg/dL 70-110 H : TE STED AT [facility] code = 1538) [address] [place] [address]: Deputy Building Guard/Techni jr ID = [id number] for Corpin, Rizalin a Lab Interpretation (test Abnormal code = 85237-4) [facility]-GLUCOSE [id number] 04:17:40 Test Item Value Reference Range Interpretation Comments POC-GLUCOSE METER 321 mg/dL 70-110 H : TESTED A T [facility] 1317 (BEAKER) (test code [facility], = 1538) [place] [address]: Deputy Building Guard/Techni jr ID = [id number] for Veronica in, Rizalina URINALYSIS [id number] 17:35:00 Test Item Value Reference Range Interpretation [...] 148 mg/dL 70-110 H Notifi ed Provider [id number]) Lab Interpretation (test Abnormal code = 48045-4) [facility] GLUCOSE (AUTOMATED)2022-09-05 22:56:06 Test Item Value Reference Range Interpretation Comments POCT GLU (test code = 6797429692) 195 mg/dL 70-110 H Lab Interpretation (test code = Abnormal 59165-9) [facility] GLUCOSE (AUTOMATED)2022-09-05 14:17:47 Test Item Value Reference Range Interpretation Comments POCT GLU (test code = 7542880992) 175 mg/dL 70-110 H Lab Interpretation (test code = Abnormal 46266-2) [facility] GLUCOSE (AUTOMATED)2022-09-05 13:23:16 Test Item Value Reference Range Interpretation Comments POCT GLU (test code = 7015852555) 131 mg/dL 70-110 H Lab Interpretation (test code = Abnormal 84351-4) [facility] GLUCOSE (AUTOMATED)2022-09-05 06:52:24 Test Item Value Reference Range Interpretation Comments POCT GLU (test code = 1663956896) 263 mg/dL 70-110 H Lab Interpretation (test code = Abnormal 43984-1) [facility] GLUCOSE (AUTOMATED)2022-09-05 03:46:21 Test Item Value Reference Range Interpretation Comments POCT GLU (test code = 6177118464) 218 mg/dL 70-110 H Lab Interpretation (test code = Abnormal 07396-6) [facility] GLUCOSE (AUTOMATED)2022-09-04 22:38:19 Test Item Value Reference Range Interpretation Comments POCT GLU (test code = 5138373207) 119 mg/dL 70-110 H Lab Interpretation (test code = Abnormal 91658-3) [facility] GLUCOSE (AUTOMATED)2022-09-04 18:17:42 Test Item Value Reference Range Interpretation Comments POCT GLU (test code = 1757801869) 266 mg/dL 70-110 H Lab Interpretation (test code = Abnormal 55481-6) [facility] GLUCOSE (AUTOMATED)2022-09-04 15:48:28 Test Item Value Reference Range Interpretation Comments POCT GLU (test code = 9368353470) 118 mg/dL 70-110 H Lab Interpretation (test code = Abnormal 93316-8) [facility] GLUCOSE (AUTOMATED)2022-09-04 06:50:30 Test Item Value Reference Range Interpretation Comments POCT GLU (test code = 2795406155) 234 mg/dL 70-110 H Lab Interpretation (test code = Abnormal 34713-8) [facility] GLUCOSE (AUTOMATED)2022-09-04 05:25:14 Test Item Value Reference Range Interpretation Comments POCT GLU (test code = 3714405549) 299 mg/dL 70-110 H Lab Interpretation (test code = Abnormal 66443-7) [facility] GLUCOSE (AUTOMATED)2022-09-04 02:56:47 Test Item Value Reference Range Interpretation Comments POCT GLU (test code = 7161300893) 366 mg/dL 70-110 H Lab Interpretation (test code = Abnormal 71543-3) [facility] GLUCOSE (AUTOMATED)2022-09-03 23:23:14 Test Item Value Reference Range Interpretation Comments POCT GLU (test code = 4736252049) 334 mg/dL 70-110 H Lab Interpretation (test code = Abnormal 26584-3) [facility] GLUCOSE (AUTOMATED)2022-09-03 18:02:16 Test Item Value Reference Range Interpretation Comments POCT GLU (test code = 6255723043) 258 mg/dL 70-110 H Lab Interpretation (test code = Abnormal 37268-7) [facility] GLUCOSE (AUTOMATED)2022-09-03 14:08:55 Test Item Value Reference Range Interpretation Comments POCT GLU (test code = 0054651468) 71 mg/dL 70-110 Lab Interpretation (test code = Normal 13041-4) [facility] METABOLIC PANEL (NA, K, CL, CO2, GLUCOSE, BUN, CREATININE, CA)2022-09-03 11:33:57 Test Item Value Reference Range Interpretation Comments NA (test code = 140 mmol/L 135-145 5655109236) K (test code = 3.7 mmol/L 3.5-5.0 0199612348) CL (test code = 106 mmol/L 98-108 0873722047) CO2 TOTAL (test code = 27 mmol/L 23-31 4552409466) AGAP (test code = 7 2-16 1306207641) BUN (test code = 62 mg/dL 7-23 H 9838197777) GLUCOSE (test code = 138 mg/dL 70-110 H 6054373981) CREATININE (test code = 1.95 mg/dL 0.60-1.25 H 0958461949) CALCIUM (test code = 8.9 mg/dL 8.6-10.6 2890945069) eGFR (test code = 35.9 mL/min/1.73m2 2949400500) OSBALDO (test code = OSBALDO) Association of [...] tests). Lab Interpretation Abnormal (test code = 13796-0) [facility] WITH [id number] 11:18:35 Test Item Value Reference Range Interpretation Comments WBC (test code = 13.38 See_Comment H [Automated 0290-2) message] The sy stem which generated this result transmitted reference range : 4.20 - 10.70 10*3/?L. The reference range was not used to interpret this result as normal/abnormal . RBC (test code = 3.13 See_Comment L [Automated 169-8) message] The sy [...] (test code = 56.4 fL 38.5-51.6 H 98494-0) RDW-CV (test code = 17.8 % 12.1-15.4 H 788-0) PLT (test code = 431 See_Comment H [Automated 777-3) message] The sy stem which generated this result transmitted reference range : 150 - 328 10*3/ ?L. The reference r stevan was not used to interpret this result as normal/abnormal . MPV (test code = 9.4 fL 9.8-13.0 L 66541-5) NRBC/100 WBC (test 0.0 See_Comment [Automat ed code = 1661337197) message] The system which generated this result transmitted reference range : 0.0 - 10.0 /100 WBCs. The refer ence range was not u sed to interpret th is result as normal/abnormal . NRBC x10^3 (test code See_Comment [Auto mated = 5857591893) message] The s ystem which generated this result transmitted reference range : 10*3/?L. The reference range was not used to interpret this result as normal/abnormal . GRAN MAT (NEUT) % 53.1 % (test code = 770-8) IMM GRAN % (test code 0.40 % = 0802917983) LYMPH % (test code = 29.4 % 736-9) MONO % (test code = 7.6 % 5905-5) EOS % (test code = 8.3 % 713-8) BASO % (test code = 1.2 % 706-2) GRAN MAT x10^3(ANC) 7.10 10*3/uL 1.99-6.95 H (test code = 7161460514) IMM GRAN x10^3 (test 0.05 10*3/uL 0.00-0.06 code = 7161644791) LYMPH x10^3 (test code 3.94 10*3/uL 1.09-3.23 H = 731-0) MONO x10^3 (test code 1.02 10*3/uL 0.36-1.02 = 742-7) EOS x10^3 (test code = 1.11 10*3/uL 0.06-0.53 H 711-2) BASO x10^3 (test code 0.16 10*3/uL 0.01-0.09 H = 704-7) Lab Interpretation Abnormal (test code = 57964-8) [facility] GLUCOSE (AUTOMATED)2022-09-03 10:45:37 Test Item Value Reference Range Interpretation Comments POCT GLU (test code = 8400652110) 150 mg/dL 70-110 H Lab Interpretation (test code = Abnormal 18317-5) [facility] GLUCOSE (AUTOMATED)2022-09-03 06:44:39 Test Item Value Reference Range Interpretation Comments POCT GLU (test code = 0246900579) 201 mg/dL 70-110 H Lab Interpretation (test code = Abnormal 69028-4) [facility] GLUCOSE (AUTOMATED)2022-09-03 03:20:07 Test Item Value Reference Range Interpretation Comments POCT GLU (test code = 9142380687) 218 mg/dL 70-110 H Lab Interpretation (test code = Abnormal 07763-4) [facility] GLUCOSE (AUTOMATED)2022-09-02 22:28:07 Test Item Value Reference Range Interpretation Comments POCT GLU (test code = 7047684844) 177 mg/dL 70-110 H Lab Interpretation (test code = Abnormal 74681-6) [facility] GLUCOSE (AUTOMATED)2022-09-02 17:49:09 Test Item Value Reference Range Interpretation Comments POCT GLU (test code = 3551644810) 187 mg/dL 70-110 H Lab Interpretation (test code = Abnormal 55818-8) [facility] GLUCOSE (AUTOMATED)2022-09-02 17:43:00 Test Item Value Reference Range Interpretation Comments POCT GLU (test code = 0211059167) 84 mg/dL 70-110 Lab Interpretation (test code = Normal 48779-1) [facility] GLUCOSE (AUTOMATED)2022-09-02 10:35:08 Test Item Value Reference Range Interpretation Comments POCT GLU (test code = 3963078495) 121 mg/dL 70-110 H Lab Interpretation (test code = Abnormal 36155-7) [facility] GLUCOSE (AUTOMATED)2022-09-02 06:19:54 Test Item Value Reference Range Interpretation Comments POCT GLU (test code = 7219055535) 194 mg/dL 70-110 H Lab Interpretation (test code = Abnormal 05873-4) [facility] GLUCOSE (AUTOMATED)2022-09-02 02:46:46 Test Item Value Reference Range Interpretation Comments POCT GLU (test code = 9383009155) 178 mg/dL 70-110 H Lab Interpretation (test code = Abnormal 35368-3) [facility] GLUCOSE (AUTOMATED)2022-09-01 22:22:01 Test Item Value Reference Range Interpretation Comments POCT GLU (test code = 9076655028) 197 mg/dL 70-110 H Lab Interpretation (test code = Abnormal 27690-2) [facility] GLUCOSE (AUTOMATED)2022-09-01 17:59:08 Test Item Value Reference Range Interpretation Comments POCT GLU (test code = 7887672299) 155 mg/dL 70-110 H Lab Interpretation (test code = Abnormal 23892-0) [facility] GLUCOSE (AUTOMATED)2022-09-01 14:13:23 Test Item Value Reference Range Interpretation Comments POCT GLU (test code = 0538662091) 104 mg/dL 70-110 Lab Interpretation (test code = Normal 87334-5) [facility] GLUCOSE (AUTOMATED)2022-09-01 11:21:26 Test Item Value Reference Range Interpretation Comments POCT GLU (test code = 4352075206) 212 mg/dL 70-110 H Lab Interpretation (test code = Abnormal 94699-6) [facility] GLUCOSE (AUTOMATED)2022-09-01 06:34:33 Test Item Value Reference Range Interpretation Comments POCT GLU (test code = 5778236911) 197 mg/dL 70-110 H Lab Interpretation (test code = Abnormal 63795-1) [facility] GLUCOSE (AUTOMATED)2022-09-01 06:03:32 Test Item Value Reference Range Interpretation Comments POCT GLU (test code = 4541206333) 171 mg/dL 70-110 H Lab Interpretation (test code = Abnormal 14752-6) [facility] GLUCOSE (AUTOMATED)2022-08-31 22:38:25 Test Item Value Reference Range Interpretation Comments POCT GLU (test code = 1561520375) 245 mg/dL 70-110 H Lab Interpretation (test code = Abnormal 69410-8) [facility] GLUCOSE (AUTOMATED)2022-08-31 17:19:15 Test Item Value Reference Range Interpretation Comments POCT GLU (test code = 8467668574) 156 mg/dL 70-110 H Lab Interpretation (test code = Abnormal 94686-0) [facility] GLUCOSE (AUTOMATED)2022-08-31 13:40:26 Test Item Value Reference Range Interpretation Comments POCT GLU (test code = 7640454296) 72 mg/dL 70-110 Lab Interpretation (test code = Normal 71835-9) [facility] GLUCOSE (AUTOMATED)2022-08-31 10:26:09 Test Item Value Reference Range Interpretation Comments POCT GLU (test code = 2736266491) 245 mg/dL 70-110 H Lab Interpretation (test code = Abnormal 36510-8) [facility] GLUCOSE (AUTOMATED)2022-08-31 06:58:27 Test Item Value Reference Range Interpretation Comments POCT GLU (test code = 6211612145) 269 mg/dL 70-110 H Lab Interpretation (test code = Abnormal 18086-6) [facility] GLUCOSE (AUTOMATED)2022-08-31 03:45:43 Test Item Value Reference Range Interpretation Comments POCT GLU (test code = 4850037767) 200 mg/dL 70-110 H Lab Interpretation (test code = Abnormal 36569-4) [facility] GLUCOSE (AUTOMATED)2022-08-31 01:01:18 Test Item Value Reference Range Interpretation Comments POCT GLU (test code = 3508667110) 122 mg/dL 70-110 H Lab Interpretation (test code = Abnormal 50998-3) [facility] GLUCOSE (AUTOMATED)2022-08-30 22:49:30 Test Item Value Reference Range Interpretation Comments POCT GLU (test code = 7432293565) 156 mg/dL 70-110 H Lab Interpretation (test code = Abnormal 57351-8) [facility] GLUCOSE (AUTOMATED)2022-08-30 18:48:21 Test Item Value Reference Range Interpretation Comments POCT GLU (test code = 2593901074) 224 mg/dL 70-110 H Lab Interpretation (test code = Abnormal 73802-8) [facility] GLUCOSE (AUTOMATED)2022-08-30 18:04:55 Test Item Value Reference Range Interpretation Comments POCT GLU (test code = 1521023296) 147 mg/dL 70-110 H Lab Interpretation (test code = Abnormal 45557-2) [facility] GLUCOSE (AUTOMATED)2022-08-30 10:55:26 Test Item Value Reference Range Interpretation Comments POCT GLU (test code = 6650678028) 204 mg/dL 70-110 H Lab Interpretation (test code = Abnormal 83878-1) [facility] GLUCOSE (AUTOMATED)2022-08-30 06:10:02 Test Item Value Reference Range Interpretation Comments POCT GLU (test code = 0461048233) 159 mg/dL 70-110 H Lab Interpretation (test code = Abnormal 19233-3) [facility] GLUCOSE (AUTOMATED)2022-08-30 04:06:46 Test Item Value Reference Range Interpretation Comments POCT GLU (test code = 9558150556) 201 mg/dL 70-110 H Lab Interpretation (test code = Abnormal 18940-8) [facility] GLUCOSE (AUTOMATED)2022-08-30 01:44:19 Test Item Value Reference Range Interpretation Comments POCT GLU (test code = 0299227712) 120 mg/dL 70-110 H Lab Interpretation (test code = Abnormal 43609-7) [facility] GLUCOSE (AUTOMATED)2022-08-30 01:44:19 Test Item Value Reference Range Interpretation Comments POCT GLU (test code = 2346591092) 177 mg/dL 70-110 H Lab Interpretation (test code = Abnormal 26194-7) [facility] GLUCOSE (AUTOMATED)2022-08-29 17:40:15 Test Item Value Reference Range Interpretation Comments POCT GLU (test code = 9542643577) 154 mg/dL 70-110 H Lab Interpretation (test code = Abnormal 68000-1) [facility] GLUCOSE (AUTOMATED)2022-08-29 10:20:47 Test Item Value Reference Range Interpretation Comments POCT GLU (test code = 8154881238) 173 mg/dL 70-110 H Lab Interpretation (test code = Abnormal 55031-3) [facility] GLUCOSE (AUTOMATED)2022-08-29 05:45:50 Test Item Value Reference Range Interpretation Comments POCT GLU (test code = 1040174659) 178 mg/dL 70-110 H Lab Interpretation (test code = Abnormal 70768-8) [facility] GLUCOSE (AUTOMATED)2022-08-29 02:33:48 Test Item Value Reference Range Interpretation Comments POCT GLU (test code = 3022669459) 126 mg/dL 70-110 H Lab Interpretation (test code = Abnormal 99342-6) [facility] GLUCOSE (AUTOMATED)2022-08-28 22:55:58 Test Item Value Reference Range Interpretation Comments POCT GLU (test code = 5703291174) 103 mg/dL 70-110 Lab Interpretation (test code = Normal 18045-9) [facility] GLUCOSE (AUTOMATED)2022-08-28 17:50:34 Test Item Value Reference Range Interpretation Comments POCT GLU (test code = 7860236139) 218 mg/dL 70-110 H Lab Interpretation (test code = Abnormal 22843-4) [facility] GLUCOSE (AUTOMATED)2022-08-28 14:10:32 Test Item Value Reference Range Interpretation Comments POCT GLU (test code = 5899587451) 160 mg/dL 70-110 H Lab Interpretation (test code = Abnormal 54247-0) [facility] GLUCOSE (AUTOMATED)2022-08-28 09:59:03 Test Item Value Reference Range Interpretation Comments POCT GLU (test code = 5200866753) 180 mg/dL 70-110 H Lab Interpretation (test code = Abnormal 31677-0) [facility] 06:12:53 Test Item Value Reference Range Interpretation Comments POCT GLU (test code = 7349404276) 146 mg/dL 70-110 H Lab Interpretation (test code = Abnormal 69748-5) [facility] GLUCOSE (AUTOMATED)2022-08-28 04:01:07 Test Item Value Reference Range Interpretation Comments POCT GLU (test code = 9157391300) 161 mg/dL 70-110 H Lab Interpretation (test code = Abnormal 17048-9) [facility] GLUCOSE (AUTOMATED)2022-08-28 02:49:14 Test Item Value Reference Range Interpretation Comments POCT GLU (test code = 9390889741) 69 mg/dL 70-110 L Lab Interpretation (test code = Abnormal 46534-2) [facility]2022-08-27 23:02:45 Test Item Value Reference Range Interpretation Comments POCT GLU (test code = 0201575319) 105 mg/dL 70-110 Lab Interpretation (test code = Normal 56183-9) [facility] 23:02:40 Test Item Value Reference Range Interpretation Comments POCT GLU (test code = 1594730190) 37 mg/dL 70-110 LL Lab Interpretation (test code = Abnormal 71787-8) [facility] GLUCOSE (AUTOMATED)2022-08-27 23:02:39 Test Item Value Reference Range Interpretation Comments POCT GLU (test code = 8833292518) 36 mg/dL 70-110 LL Lab Interpretation (test code = Abnormal 64607-9) [facility] GLUCOSE (AUTOMATED)2022-08-27 18:07:31 Test Item Value Reference Range Interpretation Comments POCT GLU (test code = 1744610086) 236 mg/dL 70-110 H Lab Interpretation (test code = Abnormal 09863-9) [facility] GLUCOSE (AUTOMATED)2022-08-27 14:24:20 Test Item Value Reference Range Interpretation Comments POCT GLU (test code = 4804526658) 101 mg/dL 70-110 Lab Interpretation (test code = Normal 14396-1) [facility] 12:12:50 Test Item Value Reference Range Interpretation Comments POCT GLU (test code = 2343713879) 78 mg/dL 70-110 Lab Interpretation (test code = Normal 63623-9) [facility] GLUCOSE (AUTOMATED)2022-08-27 10:16:52 Test Item Value Reference Range Interpretation Comments POCT GLU (test code = 3059321622) 66 mg/dL 70-110 L Lab Interpretation (test code = Abnormal 07698-9) [facility] GLUCOSE (AUTOMATED)2022-08-27 06:52:48 Test Item Value Reference Range Interpretation Comments POCT GLU (test code = 8733505234) 119 mg/dL 70-110 H Lab Interpretation (test code = Abnormal 50514-2) [facility] GLUCOSE (AUTOMATED)2022-08-27 04:07:05 Test Item Value Reference Range Interpretation Comments POCT GLU (test code = 0529579311) 111 mg/dL 70-110 H Lab Interpretation (test code = Abnormal 71661-9) [facility] GLUCOSE (AUTOMATED)2022-08-26 22:48:03 Test Item Value Reference Range Interpretation Comments POCT GLU (test code = 5439689183) 159 mg/dL 70-110 H Lab Interpretation (test code = Abnormal 27098-9) [facility] GLUCOSE (AUTOMATED)2022-08-26 18:08:02 Test Item Value Reference Range Interpretation Comments POCT GLU (test code = 1689923527) 168 mg/dL 70-110 H Lab Interpretation (test code = Abnormal 56968-7) [facility] GLUCOSE (AUTOMATED)2022-08-26 15:44:30 Test Item Value Reference Range Interpretation Comments POCT GLU (test code = 8896457016) 145 mg/dL 70-110 H Lab Interpretation (test code = Abnormal 19493-5) [facility] GLUCOSE (AUTOMATED)2022-08-26 14:14:29 Test Item Value Reference Range Interpretation Comments POCT GLU (test code = 1367177821) 153 mg/dL 70-110 H Lab Interpretation (test code = Abnormal 26163-8) [facility] GLUCOSE (AUTOMATED)2022-08-26 14:14:28 Test Item Value Reference Range Interpretation Comments POCT GLU (test code = 9060998439) 111 mg/dL 70-110 H Lab Interpretation (test code = Abnormal 27484-0) [facility] GLUCOSE (AUTOMATED)2022-08-26 10:44:36 Test Item Value Reference Range Interpretation Comments POCT GLU (test code = 3099886571) 88 mg/dL 70-110 Lab Interpretation (test code = Normal 48881-7) [facility] GLUCOSE (AUTOMATED)2022-08-26 06:09:21 Test Item Value Reference Range Interpretation Comments POCT GLU (test code = 2329403762) 122 mg/dL 70-110 H Lab Interpretation (test code = Abnormal 23059-3) [facility] GLUCOSE (AUTOMATED)2022-08-26 04:26:31 Test Item Value Reference Range Interpretation Comments POCT GLU (test code = 8184123619) 161 mg/dL 70-110 H Lab Interpretation (test code = Abnormal 05036-6) [facility] GLUCOSE (AUTOMATED)2022-08-25 20:53:42 Test Item Value Reference Range Interpretation Comments POCT GLU (test code = 5865661651) 173 mg/dL 70-110 H Lab Interpretation (test code = Abnormal 08995-2) [facility] GLUCOSE (AUTOMATED)2022-08-25 15:30:32 Test Item Value Reference Range Interpretation Comments POCT GLU (test code = 4144414219) 122 mg/dL 70-110 H Lab Interpretation (test code = Abnormal 51860-0) [facility] GLUCOSE (AUTOMATED)2022-08-25 10:22:45 Test Item Value Reference Range Interpretation Comments POCT GLU (test code = 2599994253) 195 mg/dL 70-110 H Lab Interpretation (test code = Abnormal 14188-2) [facility] GLUCOSE (AUTOMATED)2022-08-25 06:58:35 Test Item Value Reference Range Interpretation Comments POCT GLU (test code = 5597100736) 223 mg/dL 70-110 H Lab Interpretation (test code = Abnormal 35011-8) [facility] GLUCOSE (AUTOMATED)2022-08-25 03:14:49 Test Item Value Reference Range Interpretation Comments POCT GLU (test code = 2124608604) 223 mg/dL 70-110 H Lab Interpretation (test code = Abnormal 50124-6) [facility] GLUCOSE (AUTOMATED)2022-08-24 22:06:26 Test Item Value Reference Range Interpretation Comments POCT GLU (test code = 2149032126) 143 mg/dL 70-110 H Lab Interpretation (test code = Abnormal 19170-4) [facility] GLUCOSE (AUTOMATED)2022-08-24 19:05:16 Test Item Value Reference Range Interpretation Comments POCT GLU (test code = 2858464089) 128 mg/dL 70-110 H Lab Interpretation (test code = Abnormal 94105-9) [facility] GLUCOSE (AUTOMATED)2022-08-24 14:33:31 Test Item Value Reference Range Interpretation Comments POCT GLU (test code = 0441082750) 218 mg/dL 70-110 H Lab Interpretation (test code = Abnormal 23171-3) [facility] GLUCOSE (AUTOMATED)2022-08-24 11:03:57 Test Item Value Reference Range Interpretation Comments POCT GLU (test code = 6427684778) 88 mg/dL 70-110 Lab Interpretation (test code = Normal 14483-6) [facility] GLUCOSE (AUTOMATED)2022-08-24 05:51:01 Test Item Value Reference Range Interpretation Comments POCT GLU (test code = 1782420686) 221 mg/dL 70-110 H Lab Interpretation (test code = Abnormal 55250-3) [facility] GLUCOSE (AUTOMATED)2022-08-24 05:28:33 Test Item Value Reference Range Interpretation Comments POCT GLU (test code = 8218268644) 160 mg/dL 70-110 H Lab Interpretation (test code = Abnormal 41138-0) [facility] GLUCOSE (AUTOMATED)2022-08-23 22:42:08 Test Item Value Reference Range Interpretation Comments POCT GLU (test code = 1310217270) 256 mg/dL 70-110 H Lab Interpretation (test code = Abnormal 03254-4) [facility] GLUCOSE (AUTOMATED)2022-08-23 18:01:27 Test Item Value Reference Range Interpretation Comments POCT GLU (test code = 6424910746) 271 mg/dL 70-110 H Lab Interpretation (test code = Abnormal 31005-7) [facility] GLUCOSE (AUTOMATED)2022-08-23 14:20:52 Test Item Value Reference Range Interpretation Comments POCT GLU (test code = 3639916735) 193 mg/dL 70-110 H Lab Interpretation (test code = Abnormal 98264-6) [facility] GLUCOSE (AUTOMATED)2022-08-23 12:10:49 Test Item Value Reference Range Interpretation Comments POCT GLU (test code = 4678427211) 85 mg/dL 70-110 Lab Interpretation (test code = Normal 07883-6) [facility] GLUCOSE (AUTOMATED)2022-08-23 05:40:56 Test Item Value Reference Range Interpretation Comments POCT GLU (test code = 2382607662) 262 mg/dL 70-110 H Lab Interpretation (test code = Abnormal 10721-8) [facility] GLUCOSE (AUTOMATED)2022-08-23 03:10:00 Test Item Value Reference Range Interpretation Comments POCT GLU (test code = 5214895694) 259 mg/dL 70-110 H Lab Interpretation (test code = Abnormal 36791-4) [facility] GLUCOSE (AUTOMATED)2022-08-23 00:17:04 Test Item Value Reference Range Interpretation Comments POCT GLU (test code = 7507985662) 262 mg/dL 70-110 H Lab Interpretation (test code = Abnormal 19902-5) [facility] ([facility]), 1 Units 2022-08-22 22:19:39 Test Item Value Reference Range Interpretation Comments Cross Match Result Compatible (test code = 4409) ISBT Blood Type Code 9500 (test code = 800252) Unit Blood Type (test O Neg code = 4410) Unit Number (test [id number] code = 4411) Blood Expiration Date & Time (test code = 455665) Status Information Issued (test code = 4412) Product Red Blood Cells Identification (test code = 4413) Product Code (test [id number] Performed at [facility] code = 4414) Laboratory Services - [facility] Blood [address] [place], [place] [address]Toll Free: [phone] A No. [id number] [facility] Confirmation (Lab Only)2022-08-22 21:25:44 Test Item Value Reference Range Interpretation Comments ABO & RH (test code O Negative Performe d at [facility] = 20) Laboratory Serv [facility] Blood [facility] [place], [place] [address]Toll Free: [phone] A No. [id number] [facility] and Screen - ONCE [id number] 20:56:57 Test Item Value Reference Range Interpretation Comments ABO & RH (test code O Negative Performe d at [facility] = 20) Laboratory Serv [facility] [place], [place] [address]Toll Free: [phone] A No. [id number] IAT (test code = Negative Performed a t [facility] 1185) Laboratory Serv [facility] Blood [facility] [place] [phone] Free: [phone] A No. [id number] [facility] [id number] 18:21:16 Test Item Value Reference Range Interpretation Comments IRON (test code = 1175639569) 32 ug/dL 50-160 L TIBC (test code = 1368015385) 267 ug/dL 250-410 % FE SAT (test code = 4474589529) 12 % 20-50 L Lab Interpretation (test code = Abnormal 88391-6) [facility] GLUCOSE (AUTOMATED)2022-08-22 17:53:50 Test Item Value Reference Range Interpretation Comments POCT GLU (test code = 5956754036) 220 mg/dL 70-110 H Lab Interpretation (test code = Abnormal 24418-7) [facility] GLUCOSE (AUTOMATED)2022-08-22 14:00:23 Test Item Value Reference Range Interpretation Comments POCT GLU (test code = 8445453202) 95 mg/dL 70-110 Lab Interpretation (test code = Normal 36727-7) [facility] WITH [id number] 10:37:59 Test Item Value Reference Range Interpretation Comments WBC (test code = 12.63 See_Comment H [Automated 3490-2) message] The sy stem which generated this result transmitted reference range : 4.20 - 10.70 10*3/?L. The reference range was not used to interpret this result as normal/abnormal . RBC (test code = 2.57 See_Comment L [Automated 039-8) message] The sy stem which generated this [...] RDW-SD (test code = 48.8 fL 38.5-51.6 83133-3) RDW-CV (test code = 16.0 % 12.1-15.4 H 788-0) PLT (test code = 381 See_Comment H [Automated 777-3) message] The sy stem which generated this result transmitted reference range : 150 - 328 10*3/ ?L. The reference r stevan was not used to interpret this result as normal/abnormal . MPV (test code = 10.5 fL 9.8-13.0 13427-1) NRBC/100 WBC (test 0.0 See_Comment [Automat ed code = 5742877545) message] The system which generated this result transmitted reference range : 0.0 - 10.0 /100 WBCs. The refer ence range was not u sed to interpret th is result as normal/abnormal . NRBC x10^3 (test code See_Comment [Auto mated = 2415977162) message] The s ystem which generated this result transmitted reference range : 10*3/?L. The reference range was not used to interpret this result as normal/abnormal . GRAN MAT (NEUT) % 58.1 % (test code = 770-8) IMM GRAN % (test code 0.70 % = 8291420561) LYMPH % (test code = 19.9 % 736-9) MONO % (test code = 10.0 % 5905-5) EOS % (test code = 11.0 % 713-8) BASO % (test code = 0.3 % 706-2) GRAN MAT x10^3(ANC) 7.34 10*3/uL 1.99-6.95 H (test code = 4951396492) IMM GRAN x10^3 (test 0.09 10*3/uL 0.00-0.06 H code = 7718336093) LYMPH x10^3 (test code 2.51 10*3/uL 1.09-3.23 = 731-0) MONO x10^3 (test code 1.26 10*3/uL 0.36-1.02 H = 742-7) EOS x10^3 (test code = 1.39 10*3/uL 0.06-0.53 H 711-2) BASO x10^3 (test code 0.04 10*3/uL 0.01-0.09 = 704-7) Lab Interpretation Abnormal (test code = 04362-5) [facility] GLUCOSE (AUTOMATED)2022-08-22 10:01:25 Test Item Value Reference Range Interpretation Comments POCT GLU (test code = 1820397564) 80 mg/dL 70-110 Lab Interpretation (test code = Normal 35039-3) [facility] GLUCOSE (AUTOMATED)2022-08-22 04:04:15 Test Item Value Reference Range Interpretation Comments POCT GLU (test code = 0996451654) 146 mg/dL 70-110 H Lab Interpretation (test code = Abnormal 73976-6) [facility] GLUCOSE (AUTOMATED)2022-08-22 02:43:56 Test Item Value Reference Range Interpretation Comments POCT GLU (test code = 4220980665) 199 mg/dL 70-110 H Lab Interpretation (test code = Abnormal 89726-1) [facility] METABOLIC PANEL (NA, K, CL, CO2, GLUCOSE, BUN, CREATININE, CA)2022-08-21 18:47:34 Test Item Value Reference Range Interpretation Comments NA (test code = 139 mmol/L 135-145 3633566677) K (test code = 3.8 mmol/L 3.5-5.0 8179572477) CL (test code = 103 mmol/L 98-108 7810844951) CO2 TOTAL (test code = 26 mmol/L 23-31 4914210200) AGAP (test code = 10 2-16 6601455074) BUN (test code = 76 mg/dL 7-23 H 6702936537) GLUCOSE (test code = 145 mg/dL 70-110 H 0709036770) CREATININE (test code = 2.74 mg/dL 0.60-1.25 H 0852411263) CALCIUM (test code = 9.3 mg/dL 8.6-10.6 1621913216) eGFR (test code = 24.2 mL/min/1.73m2 1344528983) OSBALDO (test code = OSBALDO) Association of [...] tests). Lab Interpretation Abnormal (test code = 27633-4) [facility] GLUCOSE (AUTOMATED)2022-08-21 18:07:51 Test Item Value Reference Range Interpretation Comments POCT GLU (test code = 8835306562) 154 mg/dL 70-110 H Lab Interpretation (test code = Abnormal 67068-8) [facility] GLUCOSE (AUTOMATED)2022-08-21 16:20:06 Test Item Value Reference Range Interpretation Comments POCT GLU (test code = 5151331225) 165 mg/dL 70-110 H Lab Interpretation (test code = Abnormal 75229-3) [facility] Culture - Peripheral # [id number] 15:01:52 Test Item Value Reference Range Interpretation Comments Blood Culture-Aerobic No organisms No growth Previo us (test code = 87571-0) isolated prelim inary verified result was Culture In Progress on 08/16/2022 at 12 CSTPrevious preliminary verified result was No growth a t 24 hours on 08/17/2022 at 09 CSTPrevious preliminary verified result was No growth a t 48 hours on 08/18/2022 at 09 CSTPrevious preliminary verified result was No growth a t 72 hours on 08/19/2022 at 09 01 [employer] Blood No organisms No growth Previous Culture-Anaerobic isolated preliminar y (test code = 27536-7) verifi ed result was Culture In Progress on 08/16/2022 at 12 CSTPrevious preliminary verified result was No growth a t 24 hours on 08/17/2022 at 09 CSTPrevious preliminary verified result was No growth a t 48 hours on 08/18/2022 at 09 CSTPrevious preliminary verified result was No growth a t 72 hours on 08/19/2022 at 09 [employer] Lab Interpretation Normal (test code = 69145-6) [facility] Culture - Peripheral # 15:01:52 Test Item Value Reference Range Interpretation Comments Blood Culture-Aerobic No organisms No growth Previo us (test code = 64416-0) isolated prelim inary verified result was Culture In Progress on 08/16/2022 at 12 CSTPrevious preliminary verified result was No growth a t 24 hours on 08/17/2022 at 09 CSTPrevious preliminary verified result was No growth a t 48 hours on 08/18/2022 at 09 CSTPrevious preliminary verified result was No growth a t 72 hours on 08/19/2022 at 09 [employer] Blood No organisms No growth Previous Culture-Anaerobic isolated preliminar y (test code = 21129-3) verifi ed result was Culture In Progress on 08/16/2022 at 12 CSTPrevious preliminary verified result was No growth a t 24 hours on 08/17/2022 at 09 CSTPrevious preliminary verified result was No growth a t 48 hours on 08/18/2022 at 09 CSTPrevious preliminary verified result was No growth a t 72 hours on 08/19/2022 at 09 01 [employer] Lab Interpretation Normal (test code = 55607-6) [facility]22-[facility]-21 14:00:12 Test Item Value Reference Range Interpretation Comments POCT GLU (test code = 4671402089) 60 mg/dL 70-110 L Lab Interpretation (test code = Abnormal 71732-7) [facility] GLUCOSE (AUTOMATED)2022-08-21 11:06:50 Test Item Value Reference Range Interpretation Comments POCT GLU (test code = 5469095299) 73 mg/dL 70-110 Lab Interpretation (test code = Normal 64715-6) [facility] GLUCOSE (AUTOMATED)2022-08-21 06:40:47 Test Item Value Reference Range Interpretation Comments POCT GLU (test code = 6511701683) 142 mg/dL 70-110 H Lab Interpretation (test code = Abnormal 91096-5) [facility] GLUCOSE (AUTOMATED)2022-08-21 05:01:02 Test Item Value Reference Range Interpretation Comments POCT GLU (test code = 1791446781) 156 mg/dL 70-110 H Lab Interpretation (test code = Abnormal 81686-6) [facility] GLUCOSE (AUTOMATED)2022-08-21 02:36:10 Test Item Value Reference Range Interpretation Comments POCT GLU (test code = 2427752161) 287 mg/dL 70-110 H Lab Interpretation (test code = Abnormal 93841-3) [facility] GLUCOSE (AUTOMATED)2022-08-21 02:16:45 Test Item Value Reference Range Interpretation Comments POCT GLU (test code = 4119145430) 242 mg/dL 70-110 H Lab Interpretation (test code = Abnormal 74952-6) [facility] GLUCOSE (AUTOMATED)2022-08-20 19:19:45 Test Item Value Reference Range Interpretation Comments POCT GLU (test code = 0224546937) 238 mg/dL 70-110 H Lab Interpretation (test code = Abnormal 17381-2) [facility] GLUCOSE (AUTOMATED)2022-08-20 15:58:44 Test Item Value Reference Range Interpretation Comments POCT GLU (test code = 8658589718) 134 mg/dL 70-110 H Lab Interpretation (test code = Abnormal 90927-3) [facility] GLUCOSE (AUTOMATED)2022-08-20 11:43:18 Test Item Value Reference Range Interpretation Comments POCT GLU (test code = 9331589976) 177 mg/dL 70-110 H Lab Interpretation (test code = Abnormal 23096-2) [facility] GLUCOSE (AUTOMATED)2022-08-20 08:20:12 Test Item Value Reference Range Interpretation Comments POCT GLU (test code = 2349627586) 188 mg/dL 70-110 H Lab Interpretation (test code = Abnormal 26966-7) [facility] GLUCOSE (AUTOMATED)2022-08-20 02:34:51 Test Item Value Reference Range Interpretation Comments POCT GLU (test code = 3286315559) 132 mg/dL 70-110 H Lab Interpretation (test code = Abnormal 90779-5) [facility] GLUCOSE (AUTOMATED)2022-08-20 02:34:45 Test Item Value Reference Range Interpretation Comments POCT GLU (test code = 1124816784) 194 mg/dL 70-110 H Lab Interpretation (test code = Abnormal 16315-1) [facility] GLUCOSE (AUTOMATED)2022-08-19 18:10:32 Test Item Value Reference Range Interpretation Comments POCT GLU (test code = 4256598020) 253 mg/dL 70-110 H Lab Interpretation (test code = Abnormal 99709-4) [facility] GLUCOSE (AUTOMATED)2022-08-19 13:56:52 Test Item Value Reference Range Interpretation Comments POCT GLU (test code = 5035097898) 173 mg/dL 70-110 H Lab Interpretation (test code = Abnormal 18330-6) [facility] METABOLIC PANEL (NA, K, CL, CO2, GLUCOSE, BUN, CREATININE, CA)2022-08-19 13:14:50 Test Item Value Reference Range Interpretation Comments NA (test code = 137 mmol/L 135-145 6284765825) K (test code = 4.1 mmol/L 3.5-5.0 9135967116) CL (test code = 104 mmol/L 98-108 5891793514) CO2 TOTAL (test code = 28 mmol/L 23-31 6493126685) AGAP (test code = 5 2-16 1054726637) BUN (test code = 84 mg/dL 7-23 H 1067262477) GLUCOSE (test code = 156 mg/dL 70-110 H 9055039640) CREATININE (test code = 2.64 mg/dL 0.60-1.25 H 9417506352) CALCIUM (test code = 8.3 mg/dL 8.6-10.6 L 3846789926) eGFR (test code = 25.3 mL/min/1.73m2 7897864023) OSBALDO (test code = OSBALDO) Association of [...] tests). Lab Interpretation Abnormal (test code = 83506-0) [facility] WITH [id number] 12:02:01 Test Item Value Reference Range Interpretation Comments WBC (test code = 17.97 See_Comment H [Automated 9917-2) message] The system which generated this result transmit mendoza reference range : 4.20 - 10.70 10*3/?L. The reference range was not used to interpret this result as normal/abnormal . RBC (test code = 2.76 See_Comment L [Automated 649-8) message] The system which generated this result [...] RDW-SD (test code = 46.6 fL 38.5-51.6 34385-3) RDW-CV (test code = 15.5 % 12.1-15.4 H 788-0) PLT (test code = 389 See_Comment H [Automated 777-3) message] The system which generated this result transmit mendoza reference range : 150 - 328 10*3/ ?L. The reference range was not u sed to interpret th is result as normal/abnormal . MPV (test code = 10.7 fL 9.8-13.0 20540-8) NRBC/100 WBC (test 0.0 See_Comment [Automat ed code = 9580197737) message] The system which generated this result transmit mendoza reference range : 0.0 - 10.0 /100 WBCs. The reference range was not used to interpret this result as normal/abnormal . NRBC x10^3 (test code See_Comment [Auto mated = 3711652869) message] The system which generated this result transmit mendoza reference range : 10*3/?L. The reference range was not used to interpret this result as normal/abnormal . GRAN MAT (NEUT) % 72.6 % (test code = 770-8) IMM GRAN % (test code 0.60 % = 0431894574) LYMPH % (test code = 15.1 % 736-9) MONO % (test code = 6.3 % 5905-5) EOS % (test code = 5.0 % 713-8) BASO % (test code = 0.4 % 706-2) GRAN MAT x10^3(ANC) 13.05 10*3/uL 1.99-6.95 H (test code = 9510932642) IMM GRAN x10^3 (test 0.10 10*3/uL 0.00-0.06 H code = 9809544426) LYMPH x10^3 (test code 2.71 10*3/uL 1.09-3.23 = 731-0) MONO x10^3 (test code 1.14 10*3/uL 0.36-1.02 H = 742-7) EOS x10^3 (test code = 0.90 10*3/uL 0.06-0.53 H 711-2) BASO x10^3 (test code 0.07 10*3/uL 0.01-0.09 = 704-7) Lab Interpretation Abnormal (test code = 64563-3) [facility] GLUCOSE (AUTOMATED)2022-08-19 10:17:37 Test Item Value Reference Range Interpretation Comments POCT GLU (test code = 3802512739) 202 mg/dL 70-110 H Lab Interpretation (test code = Abnormal 92223-8) [facility] GLUCOSE (AUTOMATED)2022-08-19 06:15:49 Test Item Value Reference Range Interpretation Comments POCT GLU (test code = 3440919924) 162 mg/dL 70-110 H Lab Interpretation (test code = Abnormal 61934-2) [facility] GLUCOSE (AUTOMATED)2022-08-19 02:48:05 Test Item Value Reference Range Interpretation Comments POCT GLU (test code = 5454172148) 218 mg/dL 70-110 H Lab Interpretation (test code = Abnormal 65013-0) [facility] GLUCOSE (AUTOMATED)2022-08-18 22:28:18 Test Item Value Reference Range Interpretation Comments POCT GLU (test code = 0743113238) 238 mg/dL 70-110 H Lab Interpretation (test code = Abnormal 09493-2) [facility] [id number] 22:01:32 Test Item Value Reference Range Interpretation Comments LACTIC ACID (test code = 1.50 mmol/L 0.50-2.20 6094874236) Lab Interpretation (test code = Normal 62328-9) [facility] GLUCOSE (AUTOMATED)2022-08-18 18:03:49 Test Item Value Reference Range Interpretation Comments POCT GLU (test code = 0817826974) 346 mg/dL 70-110 H Lab Interpretation (test code = Abnormal 88211-9) [facility] GLUCOSE (AUTOMATED)2022-08-18 16:03:00 Test Item Value Reference Range Interpretation Comments POCT GLU (test code = 7491951030) 339 mg/dL 70-110 H Lab Interpretation (test code = Abnormal 99103-6) [facility] GLUCOSE (AUTOMATED)2022-08-18 10:23:13 Test Item Value Reference Range Interpretation Comments POCT GLU (test code = 6850030918) 167 mg/dL 70-110 H Lab Interpretation (test code = Abnormal 55339-9) [facility] GLUCOSE (AUTOMATED)2022-08-18 06:14:35 Test Item Value Reference Range Interpretation Comments POCT GLU (test code = 5441744125) 238 mg/dL 70-110 H Lab Interpretation (test code = Abnormal 36188-5) [facility] GLUCOSE (AUTOMATED)2022-08-18 01:51:05 Test Item Value Reference Range Interpretation Comments POCT GLU (test code = 6577928557) 388 mg/dL 70-110 H Lab Interpretation (test code = Abnormal 63162-3) [facility] METABOLIC PANEL (NA, K, CL, CO2, GLUCOSE, BUN, CREATININE, CA)2022-08-18 00:47:28 Test Item Value Reference Range Interpretation Comments NA (test code = 143 mmol/L 135-145 2136136733) K (test code = 4.2 mmol/L 3.5-5.0 8013770666) CL (test code = 107 mmol/L 98-108 7864712480) CO2 TOTAL (test code = 30 mmol/L 23-31 2365258869) AGAP (test code = 6 2-16 8134257074) BUN (test code = 93 mg/dL 7-23 H 4709642209) GLUCOSE (test code = 327 mg/dL 70-110 H 2272550639) CREATININE (test code = 2.55 mg/dL 0.60-1.25 H 2741632657) CALCIUM (test code = 8.8 mg/dL 8.6-10.6 0218218883) eGFR (test code = 26.3 mL/min/1.73m2 0803019034) OSBALDO (test code = OSBALDO) Association of [...] tests). Lab Interpretation Abnormal (test code = 29308-5) [facility] GLUCOSE (AUTOMATED)2022-08-18 00:04:56 Test Item Value Reference Range Interpretation Comments POCT GLU (test code = 1345534700) 358 mg/dL 70-110 H Lab Interpretation (test code = Abnormal 91355-6) [facility] GLUCOSE (AUTOMATED)2022-08-17 20:52:58 Test Item Value Reference Range Interpretation Comments POCT GLU (test code = 8841039027) 319 mg/dL 70-110 H Lab Interpretation (test code = Abnormal 12694-8) [facility] GLUCOSE (AUTOMATED)2022-08-17 17:26:16 Test Item Value Reference Range Interpretation Comments POCT GLU (test code = 6453038042) 267 mg/dL 70-110 H Lab Interpretation (test code = Abnormal 66696-3) [facility] GLUCOSE (AUTOMATED)2022-08-17 17:04:33 Test Item Value Reference Range Interpretation Comments POCT GLU (test code = 1260768563) 223 mg/dL 70-110 H Lab Interpretation (test code = Abnormal 90997-2) [facility] GLUCOSE (AUTOMATED)2022-08-17 15:44:59 Test Item Value Reference Range Interpretation Comments POCT GLU (test code = 9458080886) 238 mg/dL 70-110 H Lab Interpretation (test code = Abnormal 38537-5) [facility] GLUCOSE (AUTOMATED)2022-08-17 14:16:24 Test Item Value Reference Range Interpretation Comments POCT GLU (test code = 0214446612) 276 mg/dL 70-110 H Lab Interpretation (test code = Abnormal 05084-1) [facility] GLUCOSE (AUTOMATED)2022-08-17 12:20:23 Test Item Value Reference Range Interpretation Comments POCT GLU (test code = 4639291931) 177 mg/dL 70-110 H Lab Interpretation (test code = Abnormal 46149-8) [facility] GLUCOSE (AUTOMATED)2022-08-17 06:50:49 Test Item Value Reference Range Interpretation Comments POCT GLU (test code = 453 mg/dL 70-110 HH RN NOT IFIED 8478126037) Lab Interpretation (test code = Abnormal 48751-7) [facility] GLUCOSE (AUTOMATED)2022-08-17 03:52:25 Test Item Value Reference Range Interpretation Comments POCT GLU (test code = 5027159259) 340 mg/dL 70-110 H Lab Interpretation (test code = Abnormal 35270-4) [facility] 23:29:00 Test Item Value Reference Range Interpretation Comments HGB A1C (test code = 8.0 % 4.0-5.7 H 4548-4) OSBALDO (test code = OSBALDO) Reference RangesNormal: <5.7%Prediabetes: 5.7 - 6.4%Diabetes: > 6.5% Lab Interpretation (test Abnormal code = 97555-6) [facility] (Total Cholesterol, Triglycerides, HDL) - [id number] 22:26:58 Test Item Value Reference Range Interpretation Comments CHOL (test code = 2406977445) 138 mg/dL 120-200 HDL (test code = 3979161090) 23 mg/dL >=40 L HDLC RATIO (test code = 5654315691) 6.0 <=5.0 H TRIG (test code = 1314962241) 157 mg/dL 30-170 LDL CHOL (test code = 00406-9) 84 mg/dL <=160 VLDL (test code = 3914342207) 31 mg/dL 5-60 Lab Interpretation (test code = Abnormal 78254-7) [facility]22-[facility]-16 22:12:59 Test Item Value Reference Range Interpretation Comments POCT GLU (test code = 9339868677) 233 mg/dL 70-110 H Lab Interpretation (test code = Abnormal 49208-8) [facility]osph[facility] [id number] 19:14:26 Test Item Value Reference Range Interpretation Comments PHOSPHORUS (test code = 4621302834) 4.3 mg/dL 2.5-5.0 Lab Interpretation (test code = Normal 95175-1) [facility] ([id number])2022-08-16 14:45:23 Test Item Value Reference Range Interpretation Comments NA (test code = 152 mmol/L 135-145 H 1367197773) K (test code = 4.4 mmol/L 3.5-5.0 2539370165) CL (test code = 112 mmol/L 98-108 H 4784779688) CO2 TOTAL (test code = 30 mmol/L 23-31 5657670682) AGAP (test code = 10 2-16 8628414745) BUN (test code = 100 mg/dL 7-23 H 8156298607) GLUCOSE (test code = 186 mg/dL 70-110 H 3837031887) CREATININE (test code = 2.40 mg/dL 0.60-1.25 H 1807617318) TOTAL BILI (test code = 0.4 mg/dL 0.1-1.9 9491796479) CALCIUM (test code = 9.4 mg/dL 8.6-10.6 6702534582) T PROTEIN (test code = 7.0 g/dL 6.3-8.2 3429191175) ALBUMIN (test code = 3.5 g/dL 3.5-5.0 1301977669) ALK PHOS (test code = 101 U/L 34-122 8792152579) ALTv (test code = 29 U/L 5-50 1742-6) AST(SGOT) (test code = 25 U/L 13-40 3873603871) eGFR (test code = 28.2 mL/min/1.73m2 6746096912) OSBALDO (test code = OSBALDO) Association of [...] tests). Lab Interpretation Abnormal (test code = 81078-4) [facility] WITH [id number] 14:29:24 Test Item Value Reference Range Interpretation Comments WBC (test code = 13.78 See_Comment H [Automated 7990-2) message] The sy stem which generated this [...] RDW-SD (test code = 48.6 fL 38.5-51.6 36355-4) RDW-CV (test code = 15.4 % 12.1-15.4 788-0) PLT (test code = 453 See_Comment H [Automated 777-3) message] The sy stem which generated this result transmitted reference range : 150 - 328 10*3/ ?L. The reference r stevan was not used to interpret this result as normal/abnormal . MPV (test code = 10.7 fL 9.8-13.0 26151-1) NRBC/100 WBC (test 0.0 See_Comment [Automat ed code = 4433291419) message] The system which generated this result transmitted reference range : 0.0 - 10.0 /100 WBCs. The refer ence range was not u sed to interpret th is result as normal/abnormal . NRBC x10^3 (test code See_Comment [Auto mated = 4783082604) message] The s ystem which generated this result transmitted reference range : 10*3/?L. The reference range was not used to interpret this result as normal/abnormal . GRAN MAT (NEUT) % 61.9 % (test code = 770-8) IMM GRAN % (test code 1.40 % = 4757907054) LYMPH % (test code = 20.4 % 736-9) MONO % (test code = 7.3 % 5905-5) EOS % (test code = 8.3 % 713-8) BASO % (test code = 0.7 % 706-2) GRAN MAT x10^3(ANC) 8.54 10*3/uL 1.99-6.95 H (test code = 6600241952) IMM GRAN x10^3 (test 0.19 10*3/uL 0.00-0.06 H code = 8787520771) LYMPH x10^3 (test code 2.81 10*3/uL 1.09-3.23 = 731-0) MONO x10^3 (test code 1.00 10*3/uL 0.36-1.02 = 742-7) EOS x10^3 (test code = 1.14 10*3/uL 0.06-0.53 H 711-2) BASO x10^3 (test code 0.10 10*3/uL 0.01-0.09 H = 704-7) Lab Interpretation Abnormal (test code = 50244-9) [facility]22-[facility]-16 13:49:37 Test Item Value Reference Range Interpretation Comments POCT GLU (test code = 1459511868) 194 mg/dL 70-110 H Lab Interpretation (test code = Abnormal 38571-8) [facility]. METABOLIC PANEL ([id number])2022-08-06 15:45:41 Test Item Value Reference Range Interpretation Comments NA (test code = 149 mmol/L 135-145 H 7113444591) K (test code = 4.7 mmol/L 3.5-5.0 5895914726) CL (test code = 109 mmol/L 98-108 H 6161320756) CO2 TOTAL (test code = 30 mmol/L 23-31 3916208452) AGAP (test code = 2-16 3596088200) BUN (test code = 109 mg/dL 7-23 H 9957919600) GLUCOSE (test code = 274 mg/dL 70-110 H 4439809375) CREATININE (test code = 2.58 mg/dL 0.60-1.25 H 5460131219) TOTAL BILI (test code = 0.3 mg/dL 0.1-1.9 3346530235) CALCIUM (test code = 9.9 mg/dL 8.6-10.6 6650685649) T PROTEIN (test code = 6.7 g/dL 6.3-8.2 7486816353) ALBUMIN (test code = 3.4 g/dL 3.5-5.0 L 5652546015) ALK PHOS (test code = 90 U/L 34-122 5420890422) ALTv (test code = 29 U/L 5-50 1742-6) AST(SGOT) (test code = 29 U/L 13-40 2084965110) eGFR (test code = mL/min/1.73m2 2591232512) OSBALDO (test code = OSBALDO) Association of [...] tests). Lab Interpretation Abnormal (test code = 02141-8) [facility] WITH [id number] 15:33:25 Test Item Value Reference Range Interpretation [...] RDW-SD (test code = 48.1 fL 38.5-51.6 79982-9) RDW-CV (test code = 15.2 % 12.1-15.4 788-0) PLT (test code = See_Comment H [Automated 777-3) message] The sy stem which generated this result transmitted reference range : 150 - 328 10*3/ ?L. The reference r stevan was not used to interpret this result as normal/abnormal . MPV (test code = 9.8 fL 9.8-13.0 01742-3) NRBC/100 WBC (test See_Comment [Automat ed code = 9911084525) message] The system which generated this result transmitted reference range : 0.0 - 10.0 /100 WBCs. The refer ence range was not u sed to interpret th is result as normal/abnormal . NRBC x10^3 (test code See_Comment [Auto mated = 9491787713) message] The s ystem which generated this result transmitted reference range : 10*3/?L. The reference range was not used to interpret this result as normal/abnormal . GRAN MAT (NEUT) % 60.5 % (test code = 770-8) IMM GRAN % (test code 0.50 % = 2570584777) LYMPH % (test code = 22.1 % 736-9) MONO % (test code = 7.3 % 5905-5) EOS % (test code = 8.5 % 713-8) BASO % (test code = 1.1 % 706-2) GRAN MAT x10^3(ANC) 7.84 10*3/uL 1.99-6.95 H (test code = 6093294610) IMM GRAN x10^3 (test 0.07 10*3/uL 0.00-0.06 H code = 2919088242) LYMPH x10^3 (test code 2.87 10*3/uL 1.09-3.23 = 731-0) MONO x10^3 (test code 0.95 10*3/uL 0.36-1.02 = 742-7) EOS x10^3 (test code = 1.10 10*3/uL 0.06-0.53 H 711-2) BASO x10^3 (test code 0.14 10*3/uL 0.01-0.09 H = 704-7) Lab Interpretation Abnormal (test code = 85276-9) [facility] [id number] 21:00:43 Test Item Value Reference Interpretation Comments Range TROPONIN I (test 0.004 ng/mL See_Comment [Automated code = 4880522626) message] The system which generated this result [...] biotin. Lab Interpretation Normal (test code = 66313-5) [facility] (07739)2022-07-20 20:48:21 Test Item Value Reference Range Interpretation Comments NA (test code = 145 mmol/L 135-145 8372681757) K (test code = 4.4 mmol/L 3.5-5.0 5191521818) CL (test code = 107 mmol/L 98-108 1689148639) CO2 TOTAL (test code = 30 mmol/L 23-31 3374736277) AGAP (test code = 2-16 6936560185) BUN (test code = 97 mg/dL 7-23 H 3085801695) GLUCOSE (test code = 198 mg/dL 70-110 H 8068774514) CREATININE (test code = 2.32 mg/dL 0.60-1.25 H 0859890877) TOTAL BILI (test code = 0.3 mg/dL 0.1-1.4 2066624989) CALCIUM (test code = 9.8 mg/dL 8.6-10.6 7459472656) T PROTEIN (test code = 6.9 g/dL 6.3-8.2 3730253263) ALBUMIN (test code = 3.5 g/dL 3.5-5.0 4427788173) ALK PHOS (test code = 95 U/L 34-122 8930266295) ALTv (test code = 35 U/L 5-50 1742-6) AST(SGOT) (test code = 28 U/L 13-40 4024364609) eGFR (test code = mL/min/1.73m2 4088189153) OSBALDO (test code = OSBALDO) Association of [...] tests). Lab Interpretation Abnormal (test code = 00954-2) [facility] WITH [id number] 20:44:59 Test Item Value Reference Range Interpretation [...] RDW-SD (test code = 48.6 fL 38.5-51.6 12971-4) RDW-CV (test code = 15.3 % 12.1-15.4 788-0) PLT (test code = See_Comment H [Automated 777-3) message] The sy stem which generated this result transmitted reference range : 150 - 328 10*3/ ?L. The reference r stevan was not used to interpret this result as normal/abnormal . MPV (test code = 10.0 fL 9.8-13.0 23131-2) NRBC/100 WBC (test See_Comment [Automat ed code = 8423632720) message] The system which generated this result transmitted reference range : 0.0 - 10.0 /100 WBCs. The refer ence range was not u sed to interpret th is result as normal/abnormal . NRBC x10^3 (test code See_Comment [Auto mated = 9089422938) message] The s ystem which generated this result transmitted reference range : 10*3/?L. The reference range was not used to interpret this result as normal/abnormal . GRAN MAT (NEUT) % 67.7 % (test code = 770-8) IMM GRAN % (test code 0.60 % = 9361252007) LYMPH % (test code = 18.2 % 736-9) MONO % (test code = 7.1 % 5905-5) EOS % (test code = 5.9 % 713-8) BASO % (test code = 0.5 % 706-2) GRAN MAT x10^3(ANC) 9.49 10*3/uL 1.99-6.95 H (test code = 5191725117) IMM GRAN x10^3 (test 0.08 10*3/uL 0.00-0.06 H code = 6247693591) LYMPH x10^3 (test code 2.54 10*3/uL 1.09-3.23 = 731-0) MONO x10^3 (test code 0.99 10*3/uL 0.36-1.02 = 742-7) EOS x10^3 (test code = 0.82 10*3/uL 0.06-0.53 H 711-2) BASO x10^3 (test code 0.07 10*3/uL 0.01-0.09 = 704-7) Lab Interpretation Abnormal (test code = 87657-1) [facility] ([id number][facility]2022-07-16 15:05:02 Test Item Value Reference Range Interpretation Comments NA (test code = 144 mmol/L 135-145 2115521738) K (test code = 5.0 mmol/L 3.5-5.0 2626359843) CL (test code = 106 mmol/L 98-108 5904129279) CO2 TOTAL (test code = 29 mmol/L 23-31 8664019617) AGAP (test code = 2-16 7434455970) BUN (test code = 113 mg/dL 7-23 H 7282721014) GLUCOSE (test code = 267 mg/dL 70-110 H 0679417481) CREATININE (test code = 2.56 mg/dL 0.60-1.25 H 2812695349) TOTAL BILI (test code = 0.3 mg/dL 0.1-1.9 5947204688) CALCIUM (test code = 9.7 mg/dL 8.6-10.6 9095181581) T PROTEIN (test code = 7.1 g/dL 6.3-8.2 4287344464) ALBUMIN (test code = 3.5 g/dL 3.5-5.0 6930363267) ALK PHOS (test code = 107 U/L 34-122 3185361667) ALTv (test code = 37 U/L 5-50 1742-6) AST(SGOT) (test code = 25 U/L 13-40 2148057138) eGFR (test code = mL/min/1.73m2 1356822449) OSBALDO (test code = OSBALDO) Association of [...] tests). Lab Interpretation Abnormal (test code = 91589-8) [facility] WITH [id number] 14:45:23 Test Item Value Reference Range Interpretation Comments WBC (test code = See_Comment H [Automated 7690-2) message] The system which generated this result [...] RDW-SD (test code = 47.2 fL 38.5-51.6 79702-1) RDW-CV (test code = 15.1 % 12.1-15.4 788-0) PLT (test code = See_Comment H [Automated 777-3) message] The system which generated this result transmit mendoza reference range : 150 - 328 10*3/ ?L. The reference range was not u sed to interpret th is result as normal/abnormal . MPV (test code = 9.8 fL 9.8-13.0 36988-1) NRBC/100 WBC (test See_Comment [Automat ed code = 5463036458) message] The system which generated this result transmit mendoza reference range : 0.0 - 10.0 /100 WBCs. The reference range was not used to interpret this result as normal/abnormal . NRBC x10^3 (test code See_Comment [Auto mated = 6299069143) message] The system which generated this result transmit mendoza reference range : 10*3/?L. The reference range was not used to interpret this result as normal/abnormal . GRAN MAT (NEUT) % 67.6 % (test code = 770-8) IMM GRAN % (test code 0.60 % = 4003975429) LYMPH % (test code = 18.2 % 736-9) MONO % (test code = 5.9 % 5905-5) EOS % (test code = 6.9 % 713-8) BASO % (test code = 0.8 % 706-2) GRAN MAT x10^3(ANC) 10.42 10*3/uL 1.99-6.95 H (test code = 9735580066) IMM GRAN x10^3 (test 0.09 10*3/uL 0.00-0.06 H code = 7857364327) LYMPH x10^3 (test code 2.81 10*3/uL 1.09-3.23 = 731-0) MONO x10^3 (test code 0.91 10*3/uL 0.36-1.02 = 742-7) EOS x10^3 (test code = 1.06 10*3/uL 0.06-0.53 H 711-2) BASO x10^3 (test code 0.13 10*3/uL 0.01-0.09 H = 704-7) Lab Interpretation Abnormal (test code = 41702-7) [facility] GLUCOSE (AUTOMATED)2022-07-09 01:27:57 Test Item Value Reference Range Interpretation Comments POCT GLU (test code = 6733829001) 146 mg/dL 70-110 H Lab Interpretation (test code = Abnormal 60168-8) [facility] GLUCOSE (AUTOMATED)2022-07-09 00:34:36 Test Item Value Reference Range Interpretation Comments POCT GLU (test code = 1700245587) 154 mg/dL 70-110 H Lab Interpretation (test code = Abnormal 79684-4) [facility] GLUCOSE (AUTOMATED)2022-07-08 19:34:29 Test Item Value Reference Range Interpretation Comments POCT GLU (test code = 7240121511) 195 mg/dL 70-110 H Lab Interpretation (test code = Abnormal 43408-7) [facility] GLUCOSE (AUTOMATED)2022-04-27 18:54:49 Test Item Value Reference Range Interpretation Comments POCT GLU (test code = 5290632120) 178 mg/dL 70-110 H Lab Interpretation (test code = Abnormal 24926-5) [facility] GLUCOSE (AUTOMATED)2022-04-27 17:02:53 Test Item Value Reference Range Interpretation Comments POCT GLU (test code = 6402908412) 166 mg/dL 70-110 H Lab Interpretation (test code = Abnormal 13481-5) [facility] GLUCOSE (AUTOMATED)2022-04-27 17:02:53 Test Item Value Reference Range Interpretation Comments POCT GLU (test code = 7588676679) 166 mg/dL 70-110 H Lab Interpretation (test code = Abnormal 85137-0) [facility] GLUCOSE (AUTOMATED)2022-04-27 13:23:31 Test Item Value Reference Range Interpretation Comments POCT GLU (test code = 8719280122) 165 mg/dL 70-110 H Lab Interpretation (test code = Abnormal 05760-3) [facility] GLUCOSE (AUTOMATED)2022-04-27 13:23:31 Test Item Value Reference Range Interpretation Comments POCT GLU (test code = 1588334852) 165 mg/dL 70-110 H Lab Interpretation (test code = Abnormal 92025-7) [facility] GLUCOSE (AUTOMATED)2022-04-27 08:57:26 Test Item Value Reference Range Interpretation Comments POCT GLU (test code = 9402426457) 237 mg/dL 70-110 H Lab Interpretation (test code = Abnormal 40855-2) [facility] GLUCOSE (AUTOMATED)2022-04-27 08:57:26 Test Item Value Reference Range Interpretation Comments POCT GLU (test code = 5554505922) 237 mg/dL 70-110 H Lab Interpretation (test code = Abnormal 76531-3) [facility] GLUCOSE (AUTOMATED)2022-04-27 04:29:25 Test Item Value Reference Range Interpretation Comments POCT GLU (test code = 9814935274) 218 mg/dL 70-110 H Lab Interpretation (test code = Abnormal 35486-7) [facility] GLUCOSE (AUTOMATED)2022-04-27 04:29:25 Test Item Value Reference Range Interpretation Comments POCT GLU (test code = 0069304025) 218 mg/dL 70-110 H Lab Interpretation (test code = Abnormal 07667-1) [facility] GLUCOSE (AUTOMATED)2022-04-27 01:18:56 Test Item Value Reference Range Interpretation Comments POCT GLU (test code = 4960298659) 157 mg/dL 70-110 H Lab Interpretation (test code = Abnormal 66821-7) [facility] GLUCOSE (AUTOMATED)2022-04-27 01:18:56 Test Item Value Reference Range Interpretation Comments POCT GLU (test code = 2972909716) 157 mg/dL 70-110 H Lab Interpretation (test code = Abnormal 69326-7) [facility] Culture - Peripheral # [id number] 00:02:01 Test Item Value Reference Range Interpretation Comments Blood Culture-Aerobic No organisms No growth Previo us (test code = 64980-1) isolated prelim inary verified result was Culture In Progress on 04/21/2022 at 22 02 CDTPrevious preliminary verified result was No growth a t 24 hours on 04/22/2022 at 19 CDTPrevious preliminary verified result was No growth a t 48 hours on 04/23/2022 at 19 CDTPrevious preliminary verified result was No growth a t 72 hours on 04/24/2022 at 19 CDT Blood No organisms No growth Previous Culture-Anaerobic isolated preliminar y (test code = 94384-8) verifi ed result was Culture In Progress on 04/21/2022 at 22 02 CDTPrevious preliminary verified result was No growth a t 24 hours on 04/22/2022 at 19 CDTPrevious preliminary verified result was No growth a t 48 hours on 04/23/2022 at 18 08 CDTPrevious preliminary verified result was No growth a t 72 hours on 04/24/2022 at 18 08 CDT Lab Interpretation Normal (test code = 82960-3) [facility] Culture - Peripheral # [id number] 00:02:01 Test Item Value Reference Range Interpretation Comments Blood Culture-Aerobic No organisms No growth Previo us (test code = 59386-5) isolated prelim inary verified result was Culture In Progress on 04/21/2022 at 02 CDTPrevious preliminary verified result was No growth a t 24 hours on 04/22/2022 at 18 08 CDTPrevious preliminary verified result was No growth a t 48 hours on 04/23/2022 at 18 08 CDTPrevious preliminary verified result was No growth a t 72 hours on 04/24/2022 at 18 08 CDT Blood No organisms No growth Previous Culture-Anaerobic isolated preliminar y (test code = 50354-5) verifi ed result was Culture In Progress [...] CDT Lab Interpretation Normal (test code = 40235-8) [facility] Culture - Peripheral # [id number] 00:02:01 Test Item Value Reference Range Interpretation Comments Blood Culture-Aerobic No organisms No growth Previo us (test code = 67948-6) isolated prelim inary verified result was Culture [...] Culture-Anaerobic isolated preliminar y (test code = 02149-8) verifi ed result was Culture In Progress on 04/21/2022 at 22 02 CDTPrevious preliminary verified result was No growth a t 24 hours on 04/22/2022 at 19 CDTPrevious preliminary verified result was No growth a t 48 hours on 04/23/2022 at 19 CDTPrevious preliminary verified result was No growth a t 72 hours on 04/24/2022 at 19 01 CDT Lab Interpretation Normal (test code = 26527-8) [facility] Culture - Peripheral # [id number] 00:02:01 Test Item Value Reference Range Interpretation Comments Blood Culture-Aerobic No organisms No growth Previo us (test code = 07935-9) isolated prelim inary verified result was Culture In Progress on 04/21/2022 at 22 02 CDTPrevious preliminary verified result was No growth a t 24 hours on 04/22/2022 at 19 CDTPrevious preliminary verified result was No growth a t 48 hours on 04/23/2022 at 18 08 CDTPrevious preliminary verified result was No growth a t 72 hours on 04/24/2022 at 18 08 CDT Blood No organisms No growth Previous Culture-Anaerobic isolated preliminar y (test code = 27397-4) verifi ed result was Culture In Progress on 04/21/2022 at 22 02 CDTPrevious preliminary verified result was No growth a t 24 hours on 04/22/2022 at 18 08 CDTPrevious preliminary verified result was No growth a t 48 hours on 04/23/2022 at 18 08 CDTPrevious preliminary verified result was No growth a t 72 hours on 04/24/2022 at 01 CDT Lab Interpretation Normal (test code = 01129-9) [facility] GLUCOSE (AUTOMATED)2022-04-26 22:07:21 Test Item Value Reference Range Interpretation Comments POCT GLU (test code = 6905491614) 163 mg/dL 70-110 H Lab Interpretation (test code = Abnormal 39065-9) [facility] GLUCOSE (AUTOMATED)2022-04-26 22:07:21 Test Item Value Reference Range Interpretation Comments POCT GLU (test code = 6448249805) 163 mg/dL 70-110 H Lab Interpretation (test code = Abnormal 91299-2) [facility] GLUCOSE (AUTOMATED)2022-04-26 17:02:07 Test Item Value Reference Range Interpretation Comments POCT GLU (test code = 9599922371) 115 mg/dL 70-110 H Lab Interpretation (test code = Abnormal 61244-6) [facility] GLUCOSE (AUTOMATED)2022-04-26 17:02:07 Test Item Value Reference Range Interpretation Comments POCT GLU (test code = 2645900514) 115 mg/dL 70-110 H Lab Interpretation (test code = Abnormal 89957-7) [facility] GLUCOSE (AUTOMATED)2022-04-26 13:05:46 Test Item Value Reference Range Interpretation Comments POCT GLU (test code = 6866711262) 141 mg/dL 70-110 H Lab Interpretation (test code = Abnormal 70919-9) [facility] GLUCOSE (AUTOMATED)2022-04-26 13:05:46 Test Item Value Reference Range Interpretation Comments POCT GLU (test code = 1434755340) 141 mg/dL 70-110 H Lab Interpretation (test code = Abnormal 96648-0) [facility] METABOLIC PANEL (NA, K, CL, CO2, GLUCOSE, BUN, CREATININE, CA)2022-04-26 10:38:53 Test Item Value Reference Range Interpretation Comments NA (test code = 137 mmol/L 135-145 2892611094) K (test code = 4.5 mmol/L 3.5-5 5533833809) CL (test code = 103 mmol/L 98-108 1554105632) CO2 TOTAL (test code = 24 mmol/L 23-31 8093627647) AGAP (test code = 2-16 3198685312) BUN (test code = 68 mg/dL 7-23 H 2797617195) GLUCOSE (test code = 207 mg/dL 70-110 H 1101550901) CREATININE (test code = 2.02 mg/dL 0.6-1.25 H 5200068300) CALCIUM (test code = 9.1 mg/dL 8.6-10.6 3706949688) eGFR (test code = mL/min/1.73m2 0598399276) OSBALDO (test code = OSBALDO) Association of [...] tests). Lab Interpretation Abnormal (test code = 89289-5) [facility] (NA, K, CL, CO2, GLUCOSE, BUN, CREATININE, CA)2022-04-26 10:38:53 Test Item Value Reference Range Interpretation Comments NA (test code = 137 mmol/L 135-145 0429752313) K (test code = 4.5 mmol/L 3.5-5 7103132771) CL (test code = 103 mmol/L 98-108 2508096658) CO2 TOTAL (test code = 24 mmol/L 23-31 9488902173) AGAP (test code = 2-16 7130691435) BUN (test code = 68 mg/dL 7-23 H 1787729580) GLUCOSE (test code = 207 mg/dL 70-110 H 9256460325) CREATININE (test code = 2.02 mg/dL 0.6-1.25 H 7775669652) CALCIUM (test code = 9.1 mg/dL 8.6-10.6 3836779969) eGFR (test code = mL/min/1.73m2 3763064269) OSBALDO (test code = OSBALDO) Association of [...] tests). Lab Interpretation Abnormal (test code = 11022-0) [facility] WITH [id number] 10:21:12 Test Item Value Reference Range Interpretation Comments WBC (test code = See_Comment H [Automated 9090-2) message] The sy stem which generated this result transmitted reference range : 4.20 - 10.70 10*3/?L. The reference range was not used to interpret this result as normal/abnormal . RBC (test code = See_Comment L [Automated 244-8) message] The sy stem which generated this [...] RDW-SD (test code = 50.2 fL 38.5-51.6 08447-0) RDW-CV (test code = 15.9 % 12.1-15.4 H 788-0) PLT (test code = See_Comment H [Automated 777-3) message] The sy stem which generated this result transmitted reference range : 150 - 328 10*3/ ?L. The reference r stevan was not used to interpret this result as normal/abnormal . MPV (test code = 10.1 fL 9.8-13 72595-1) NRBC/100 WBC (test See_Comment [Automat ed code = 9940188704) message] The system which generated this result transmitted reference range : 0.0 - 10.0 /100 WBCs. The refer ence range was not u sed to interpret th is result as normal/abnormal . NRBC x10^3 (test code See_Comment [Auto mated = 7266246079) message] The s ystem which generated this result transmitted reference range : 10*3/?L. The reference range was not used to interpret this result as normal/abnormal . GRAN MAT (NEUT) % 78.1 % (test code = 770-8) IMM GRAN % (test code 0.60 % = 0649205560) LYMPH % (test code = 16.3 % 736-9) MONO % (test code = 4.6 % 5905-5) EOS % (test code = 0.0 % 713-8) BASO % (test code = 0.4 % 706-2) GRAN MAT x10^3(ANC) 9.10 10*3/uL 1.99-6.95 H (test code = 1950672026) IMM GRAN x10^3 (test 0.07 10*3/uL 0-0.06 H code = 1109271553) LYMPH x10^3 (test code 1.90 10*3/uL 1.09-3.23 = 731-0) MONO x10^3 (test code 0.54 10*3/uL 0.36-1.02 = 742-7) EOS x10^3 (test code = 0.06-0.53 L 711-2) BASO x10^3 (test code 0.05 10*3/uL 0.01-0.09 = 704-7) Lab Interpretation Abnormal (test code = 10499-2) [facility] WITH [id number] 10:21:12 Test Item Value Reference Range Interpretation [...] RDW-SD (test code = 50.2 fL 38.5-51.6 39707-2) RDW-CV (test code = 15.9 % 12.1-15.4 H 788-0) PLT (test code = See_Comment H [Automated 777-3) message] The sy stem which generated this result transmitted reference range : 150 - 328 10*3/ ?L. The reference r stevan was not used to interpret this result as normal/abnormal . MPV (test code = 10.1 fL 9.8-13 26023-3) NRBC/100 WBC (test See_Comment [Automat ed code = 0529498359) message] The system which generated this result transmitted reference range : 0.0 - 10.0 /100 WBCs. The refer ence range was not u sed to interpret th is result as normal/abnormal . NRBC x10^3 (test code See_Comment [Auto mated = 8027441564) message] The s ystem which generated this result transmitted reference range : 10*3/?L. The reference range was not used to interpret this result as normal/abnormal . GRAN MAT (NEUT) % 78.1 % (test code = 770-8) IMM GRAN % (test code 0.60 % = 1187693542) LYMPH % (test code = 16.3 % 736-9) MONO % (test code = 4.6 % 5905-5) EOS % (test code = 0.0 % 713-8) BASO % (test code = 0.4 % 706-2) GRAN MAT x10^3(ANC) 9.10 10*3/uL 1.99-6.95 H (test code = 4923166024) IMM GRAN x10^3 (test 0.07 10*3/uL 0-0.06 H code = 9838815504) LYMPH x10^3 (test code 1.90 10*3/uL 1.09-3.23 = 731-0) MONO x10^3 (test code 0.54 10*3/uL 0.36-1.02 = 742-7) EOS x10^3 (test code = 0.06-0.53 L 711-2) BASO x10^3 (test code 0.05 10*3/uL 0.01-0.09 = 704-7) Lab Interpretation Abnormal (test code = 33052-9) [facility] GLUCOSE (AUTOMATED)2022-04-26 09:12:55 Test Item Value Reference Range Interpretation Comments POCT GLU (test code = 8495634312) 211 mg/dL 70-110 H Lab Interpretation (test code = Abnormal 04644-6) [facility] GLUCOSE (AUTOMATED)2022-04-26 09:12:55 Test Item Value Reference Range Interpretation Comments POCT GLU (test code = 7025639714) 211 mg/dL 70-110 H Lab Interpretation (test code = Abnormal 06115-7) [facility] GLUCOSE (AUTOMATED)2022-04-26 04:43:03 Test Item Value Reference Range Interpretation Comments POCT GLU (test code = 6080862518) 249 mg/dL 70-110 H Lab Interpretation (test code = Abnormal 99833-7) [facility] GLUCOSE (AUTOMATED)2022-04-26 04:43:03 Test Item Value Reference Range Interpretation Comments POCT GLU (test code = 4751706841) 249 mg/dL 70-110 H Lab Interpretation (test code = Abnormal 31981-6) [facility] GLUCOSE (AUTOMATED)2022-04-26 02:09:46 Test Item Value Reference Range Interpretation Comments POCT GLU (test code = 1193831583) 206 mg/dL 70-110 H Lab Interpretation (test code = Abnormal 14508-9) [facility] GLUCOSE (AUTOMATED)2022-04-26 02:09:46 Test Item Value Reference Range Interpretation Comments POCT GLU (test code = 4355976493) 206 mg/dL 70-110 H Lab Interpretation (test code = Abnormal 37607-9) [facility] GLUCOSE (AUTOMATED)2022-04-25 22:05:07 Test Item Value Reference Range Interpretation Comments POCT GLU (test code = 6167742537) 242 mg/dL 70-110 H Lab Interpretation (test code = Abnormal 52412-7) [facility] GLUCOSE (AUTOMATED)2022-04-25 22:05:07 Test Item Value Reference Range Interpretation Comments POCT GLU (test code = 3638205142) 242 mg/dL 70-110 H Lab Interpretation (test code = Abnormal 63120-6) [facility] GLUCOSE (AUTOMATED)2022-04-25 17:04:31 Test Item Value Reference Range Interpretation Comments POCT GLU (test code = 4817321776) 323 mg/dL 70-110 H Lab Interpretation (test code = Abnormal 63966-6) [facility] GLUCOSE (AUTOMATED)2022-04-25 17:04:31 Test Item Value Reference Range Interpretation Comments POCT GLU (test code = 8375813739) 323 mg/dL 70-110 H Lab Interpretation (test code = Abnormal 82163-6) [id number] 14:54:30 Test Item Value Reference Range Interpretation Comments VIT D 25OH (test code = 24 ng/mL 25-80 L 27784-6) OSBALDO (test code = OSBALDO) Deficiency: <20 ng/mLInsufficiency: 20-24 ng/mLOptimal: 25-80 ng/mL Lab Interpretation (test Abnormal code = 47181-3) [facility], [id number] 14:54:30 Test Item Value Reference Range Interpretation Comments VIT D 25OH (test code = 24 ng/mL 25-80 L 03978-4) OSBALDO (test code = OSBALDO) Deficiency: <20 ng/mLInsufficiency: 20-24 ng/mLOptimal: 25-80 ng/mL Lab Interpretation (test Abnormal code = 32168-9) [facility] GLUCOSE (AUTOMATED)2022-04-25 11:30:01 Test Item Value Reference Range Interpretation Comments POCT GLU (test code = 2947132465) 231 mg/dL 70-110 H Lab Interpretation (test code = Abnormal 95995-3) [facility] GLUCOSE (AUTOMATED)2022-04-25 11:30:01 Test Item Value Reference Range Interpretation Comments POCT GLU (test code = 6216878983) 231 mg/dL 70-110 H Lab Interpretation (test code = Abnormal 12420-1) [facility] (NA, K, CL, CO2, GLUCOSE, BUN, CREATININE, CA)2022-04-25 09:38:23 Test Item Value Reference Range Interpretation Comments NA (test code = 141 mmol/L 135-145 1999573507) K (test code = 4.8 mmol/L 3.5-5 5952158451) CL (test code = 106 mmol/L 98-108 0523207286) CO2 TOTAL (test code = 26 mmol/L 23-31 1458836207) AGAP (test code = 2-16 9089442178) BUN (test code = 67 mg/dL 7-23 H 5124403613) GLUCOSE (test code = 311 mg/dL 70-110 H 2175718129) CREATININE (test code = 2.18 mg/dL 0.6-1.25 H 5525858045) CALCIUM (test code = 8.8 mg/dL 8.6-10.6 1560495388) eGFR (test code = mL/min/1.73m2 9901931460) OSBALDO (test code = OSBALDO) Association of [...] tests). Lab Interpretation Abnormal (test code = 24938-7) [facility] METABOLIC PANEL (NA, K, CL, CO2, GLUCOSE, BUN, CREATININE, CA)2022-04-25 09:38:23 Test Item Value Reference Range Interpretation Comments NA (test code = 141 mmol/L 135-145 7344684313) K (test code = 4.8 mmol/L 3.5-5 9350549792) CL (test code = 106 mmol/L 98-108 5204556183) CO2 TOTAL (test code = 26 mmol/L 23-31 5647372974) AGAP (test code = 2-16 5823851214) BUN (test code = 67 mg/dL 7-23 H 3643183835) GLUCOSE (test code = 311 mg/dL 70-110 H 7311054126) CREATININE (test code = 2.18 mg/dL 0.6-1.25 H 9103875035) CALCIUM (test code = 8.8 mg/dL 8.6-10.6 1980501103) eGFR (test code = mL/min/1.73m2 8703595003) OSBALDO (test code = OSBALDO) Association of [...] tests). Lab Interpretation Abnormal (test code = 24255-4) [facility] WITH [id number] 09:17:41 Test Item Value Reference Range Interpretation [...] RDW-SD (test code = 50.1 fL 38.5-51.6 95994-5) RDW-CV (test code = 15.9 % 12.1-15.4 H 788-0) PLT (test code = See_Comment H [Automated 777-3) message] The system which generated this result transmit mendoza reference range : 150 - 328 10*3/ ?L. The reference range was not u sed to interpret th is result as normal/abnormal . MPV (test code = 9.4 fL 9.8-13 L 88411-4) NRBC/100 WBC (test See_Comment [Automat ed code = 8052777178) message] The system which generated this result transmit mendoza reference range : 0.0 - 10.0 /100 WBCs. The reference range was not used to interpret this result as normal/abnormal . NRBC x10^3 (test code See_Comment [Auto mated = 9549827181) message] The system which generated this result transmit mendoza reference range : 10*3/?L. The reference range was not used to interpret this result as normal/abnormal . GRAN MAT (NEUT) % 87.8 % (test code = 770-8) IMM GRAN % (test code 0.60 % = 2744674184) LYMPH % (test code = 9.0 % 736-9) MONO % (test code = 2.3 % 5905-5) EOS % (test code = 0.0 % 713-8) BASO % (test code = 0.3 % 706-2) GRAN MAT x10^3(ANC) 10.48 10*3/uL 1.99-6.95 H (test code = 2894160911) IMM GRAN x10^3 (test 0.07 10*3/uL 0-0.06 H code = 0962508611) LYMPH x10^3 (test code 1.07 10*3/uL 1.09-3.23 L = 731-0) MONO x10^3 (test code 0.27 10*3/uL 0.36-1.02 L = 742-7) EOS x10^3 (test code = 0.06-0.53 L 711-2) BASO x10^3 (test code 0.03 10*3/uL 0.01-0.09 = 704-7) Lab Interpretation Abnormal (test code = 22336-7) [facility] WITH [id number] 09:17:41 Test Item Value Reference Range Interpretation [...] RDW-SD (test code = 50.1 fL 38.5-51.6 11785-6) RDW-CV (test code = 15.9 % 12.1-15.4 H 788-0) PLT (test code = See_Comment H [Automated 777-3) message] The system which generated this result transmit mendoza reference range : 150 - 328 10*3/ ?L. The reference range was not u sed to interpret th is result as normal/abnormal . MPV (test code = 9.4 fL 9.8-13 L 70490-7) NRBC/100 WBC (test See_Comment [Automat ed code = 3072125509) message] The system which generated this result transmit mendoza reference range : 0.0 - 10.0 /100 WBCs. The reference range was not used to interpret this result as normal/abnormal . NRBC x10^3 (test code See_Comment [Auto mated = 3782124223) message] The system which generated this result transmit mendoza reference range : 10*3/?L. The reference range was not used to interpret this result as normal/abnormal . GRAN MAT (NEUT) % 87.8 % (test code = 770-8) IMM GRAN % (test code 0.60 % = 7217779668) LYMPH % (test code = 9.0 % 736-9) MONO % (test code = 2.3 % 5905-5) EOS % (test code = 0.0 % 713-8) BASO % (test code = 0.3 % 706-2) GRAN MAT x10^3(ANC) 10.48 10*3/uL 1.99-6.95 H (test code = 7539513543) IMM GRAN x10^3 (test 0.07 10*3/uL 0-0.06 H code = 2926020569) LYMPH x10^3 (test code 1.07 10*3/uL 1.09-3.23 L = 731-0) MONO x10^3 (test code 0.27 10*3/uL 0.36-1.02 L = 742-7) EOS x10^3 (test code = 0.06-0.53 L 711-2) BASO x10^3 (test code 0.03 10*3/uL 0.01-0.09 = 704-7) Lab Interpretation Abnormal (test code = 29106-9) [facility] GLUCOSE (AUTOMATED)2022-04-25 09:13:04 Test Item Value Reference Range Interpretation Comments POCT GLU (test code = 9922906406) 309 mg/dL 70-110 H Lab Interpretation (test code = Abnormal 19098-6) [facility] GLUCOSE (AUTOMATED)2022-04-25 09:13:04 Test Item Value Reference Range Interpretation Comments POCT GLU (test code = 1550932415) 309 mg/dL 70-110 H Lab Interpretation (test code = Abnormal 41288-3) [facility] GLUCOSE (AUTOMATED)2022-04-25 06:14:35 Test Item Value Reference Range Interpretation Comments POCT GLU (test code = 7230314934) 338 mg/dL 70-110 H Lab Interpretation (test code = Abnormal 22358-7) [facility] GLUCOSE (AUTOMATED)2022-04-25 06:14:35 Test Item Value Reference Range Interpretation Comments POCT GLU (test code = 2578250519) 338 mg/dL 70-110 H Lab Interpretation (test code = Abnormal 92213-5) [facility] GLUCOSE (AUTOMATED)2022-04-25 02:01:34 Test Item Value Reference Range Interpretation Comments POCT GLU (test code = 9197616133) 302 mg/dL 70-110 H Lab Interpretation (test code = Abnormal 87142-6) [facility] GLUCOSE (AUTOMATED)2022-04-25 02:01:34 Test Item Value Reference Range Interpretation Comments POCT GLU (test code = 9257478010) 302 mg/dL 70-110 H Lab Interpretation (test code = Abnormal 08505-9) [facility] GLUCOSE (AUTOMATED)2022-04-24 23:19:05 Test Item Value Reference Range Interpretation Comments POCT GLU (test code = 3703264339) 343 mg/dL 70-110 H Lab Interpretation (test code = Abnormal 62600-4) [facility] GLUCOSE (AUTOMATED)2022-04-24 23:19:05 Test Item Value Reference Range Interpretation Comments POCT GLU (test code = 6220960882) 343 mg/dL 70-110 H Lab Interpretation (test code = Abnormal 08998-6) [facility] GLUCOSE (AUTOMATED)2022-04-24 21:21:09 Test Item Value Reference Range Interpretation Comments POCT GLU (test code = 2565863585) 342 mg/dL 70-110 H Lab Interpretation (test code = Abnormal 05365-5) [facility] GLUCOSE (AUTOMATED)2022-04-24 21:21:09 Test Item Value Reference Range Interpretation Comments POCT GLU (test code = 8971767390) 342 mg/dL 70-110 H Lab Interpretation (test code = Abnormal 02624-2) [facility] GLUCOSE (AUTOMATED)2022-04-24 16:18:05 Test Item Value Reference Range Interpretation Comments POCT GLU (test code = 8530818268) 360 mg/dL 70-110 H Lab Interpretation (test code = Abnormal 91736-0) [facility] GLUCOSE (AUTOMATED)2022-04-24 16:18:05 Test Item Value Reference Range Interpretation Comments POCT GLU (test code = 8863109385) 360 mg/dL 70-110 H Lab Interpretation (test code = Abnormal 84698-0) [facility] GLUCOSE (AUTOMATED)2022-04-24 08:48:15 Test Item Value Reference Range Interpretation Comments POCT GLU (test code = 5376311721) 296 mg/dL 70-110 H Lab Interpretation (test code = Abnormal 88507-2) [facility] GLUCOSE (AUTOMATED)2022-04-24 08:48:15 Test Item Value Reference Range Interpretation Comments POCT GLU (test code = 4093793913) 296 mg/dL 70-110 H Lab Interpretation (test code = Abnormal 63993-3) [facility] GLUCOSE (AUTOMATED)2022-04-24 05:54:32 Test Item Value Reference Range Interpretation Comments POCT GLU (test code = 2200507240) 320 mg/dL 70-110 H Lab Interpretation (test code = Abnormal 10612-4) [facility] GLUCOSE (AUTOMATED)2022-04-24 05:54:32 Test Item Value Reference Range Interpretation Comments POCT GLU (test code = 3753495403) 320 mg/dL 70-110 H Lab Interpretation (test code = Abnormal 26372-4) [facility] GLUCOSE (AUTOMATED)2022-04-24 01:35:34 Test Item Value Reference Range Interpretation Comments POCT GLU (test code = 0828195883) 315 mg/dL 70-110 H Lab Interpretation (test code = Abnormal 18991-6) [facility] GLUCOSE (AUTOMATED)2022-04-24 01:35:34 Test Item Value Reference Range Interpretation Comments POCT GLU (test code = 3415707203) 315 mg/dL 70-110 H Lab Interpretation (test code = Abnormal 96586-7) [facility] GLUCOSE (AUTOMATED)2022-04-23 23:15:58 Test Item Value Reference Range Interpretation Comments POCT GLU (test code = 1500364275) 295 mg/dL 70-110 H Lab Interpretation (test code = Abnormal 07110-5) [facility] GLUCOSE (AUTOMATED)2022-04-23 23:15:58 Test Item Value Reference Range Interpretation Comments POCT GLU (test code = 2424695139) 295 mg/dL 70-110 H Lab Interpretation (test code = Abnormal 07978-2) [facility] GLUCOSE (AUTOMATED)2022-04-23 22:24:42 Test Item Value Reference Range Interpretation Comments POCT GLU (test code = 7772990024) 405 mg/dL 70-110 H Lab Interpretation (test code = Abnormal 76850-7) [facility] GLUCOSE (AUTOMATED)2022-04-23 22:24:42 Test Item Value Reference Range Interpretation Comments POCT GLU (test code = 6009054541) 405 mg/dL 70-110 H Lab Interpretation (test code = Abnormal 44013-1) [facility] PTH CALCIUM [id number] 21:12:33 Test Item Value Reference Range Interpretation Comments PTH-INTACT (test code = 38.0 pg/mL 3830924443) PTH-CA Interpretation PTH IS Appropriate (test code = for Calcium 0798731917) CALCIUM (test code = 9.5 mg/dL 8.6-10.6 5723110684) [facility] PTH CALCIUM [id number] 21:12:33 Test Item Value Reference Range Interpretation Comments PTH-INTACT (test code = 38.0 pg/mL 6002893043) PTH-CA Interpretation PTH IS Appropriate (test code = for Calcium 3024497734) CALCIUM (test code = 9.5 mg/dL 8.6-10.6 1029262906) [facility] GLUCOSE (AUTOMATED)2022-04-23 14:51:25 Test Item Value Reference Range Interpretation Comments POCT GLU (test code = 5177883324) 478 mg/dL 70-110 HH Lab Interpretation (test code = Abnormal 59139-6) [facility] GLUCOSE (AUTOMATED)2022-04-23 14:51:25 Test Item Value Reference Range Interpretation Comments POCT GLU (test code = 3033732193) 478 mg/dL 70-110 HH Lab Interpretation (test code = Abnormal 23139-0) [facility] GLUCOSE (AUTOMATED)2022-04-23 13:38:46 Test Item Value Reference Range Interpretation Comments POCT GLU (test code = 3408243268) 495 mg/dL 70-110 HH Lab Interpretation (test code = Abnormal 77581-7) [facility] GLUCOSE (AUTOMATED)2022-04-23 13:38:46 Test Item Value Reference Range Interpretation Comments POCT GLU (test code = 3314457763) 495 mg/dL 70-110 HH Lab Interpretation (test code = Abnormal 72939-7) [facility] GLUCOSE (AUTOMATED)2022-04-23 08:53:10 Test Item Value Reference Range Interpretation Comments POCT GLU (test code = 0705936475) 394 mg/dL 70-110 H Lab Interpretation (test code = Abnormal 02893-0) [facility] GLUCOSE (AUTOMATED)2022-04-23 08:53:10 Test Item Value Reference Range Interpretation Comments POCT GLU (test code = 7692761871) 394 mg/dL 70-110 H Lab Interpretation (test code = Abnormal 92196-5) [facility] GLUCOSE (AUTOMATED)2022-04-23 03:33:59 Test Item Value Reference Range Interpretation Comments POCT GLU (test code = 7980033494) 338 mg/dL 70-110 H Lab Interpretation (test code = Abnormal 30372-5) [facility] GLUCOSE (AUTOMATED)2022-04-23 03:33:59 Test Item Value Reference Range Interpretation Comments POCT GLU (test code = 1234710588) 338 mg/dL 70-110 H Lab Interpretation (test code = Abnormal 09617-7) [facility] CONSULT [id number] 22:39:38 ABSOLUTE NEUTROPHILIA AND EOSINOPHILIA CONSISTENT WITH PATIENT'S HISTORY OF INFECTION. THROMBOCYTOSIS. NORMOCYTIC NORMOCHROMIC ANEMIA.[facility] CONSULT [id number] 22:39:38ABSOLUTE NEUTROPHILIA AND EOSINOPHILIA CONSISTENT WITH PATIENT'S HISTORY OF INFECTION. THROMBOCYTOSIS. NORMOCYTIC NORMOCHROMIC ANEMIA.[facility] GLUCOSE (AUTOMATED)2022-04-22 21:53:55 Test Item Value Reference Range Interpretation Comments POCT GLU (test code = 0043450219) 353 mg/dL 70-110 H Lab Interpretation (test code = Abnormal 23972-4) [facility] GLUCOSE (AUTOMATED)2022-04-22 21:53:55 Test Item Value Reference Range Interpretation Comments POCT GLU (test code = 4323338464) 353 mg/dL 70-110 H Lab Interpretation (test code = Abnormal 88154-4) [facility] 21:42:17 Test Item Value Reference Range Interpretation Comments Height (test code = in 1689495198) Weight (test code = lbs 9300074193) Systolic BP (test code = mmHg 8249151388) Diastolic BP (test code mmHg = 4694270158) Heart Rate (test code = bpm 2389713491) BSA (test code = 2.03 m2 2326345945) LVIDD (test code = 4.30 cm 5673846049) Left Ventricular End 84.4 mL Diastolic Volume by Teichholz Method (test code = 0472305) IVS (test code = 1.53 cm 4825503248) Interventricular Septum 1.53 cm Diastolic Thickness by 2D (test code = 1933166) LVPWD (test code = 1.40 cm 1856533636) PW (test code = 1.40 cm 0.6-1.3 1137151622) EF(Teich) (test code = 66.30 % 1211286037) LVIDS (test code = 2.80 cm 0447661626) Left Ventricular End 28.4 mL Systolic Volume by Teichholz Method (test code = 1660224) FS (test code = 36 % 8235259263) EF - 2D (test code = 66.30 % 74330426) LVOT diameter (test code 2.11 cm = 3716701565) LVOT area (test code = 3.50 cm2 3745711299) ACS (test code = 2.05 cm 6971431073) Ao root diam (test code 3.60 cm = 4806815322) Aortic root (test code = 3.6 cm 5824502967) Ao root annulus (test 3.6 cm code = 2755044825) LA size (test code = 4.1 cm 0994359884) E wave decelartion time 0.25 s (test code = 2023870137) MV Peak E Jed (test code 87.9 cm/s = 2411389273) MV Peak A Jed (test code 98.5 cm/s = 3523778792) E/A ratio (test code = ratio 2839043040) MV Prop V (test code = 54.80 cm/s 4287491288) Tapse (test code = 2.23 cm 0634096681) LVOT stroke volume (test 72.30 cm3 code = 6864359772) LVOT peak jed (test code 90.6 cm/s = 2117176244) LVOT mn grad (test code mmHg = 5829266111) AV LVOT peak gradient mmHg (test code = 2275362360) LVOT peak VTI (test code 20.8 cm = 7119937295) LV V1 mean (test code = 58.10 cm/s 8693417040) Aortic valve mean 78.9 cm/s velocity (test code = 6889968970) Ao peak jed (test code = 131.1 cm/s 8236076810) Ao VTI (test code = 24.9 cm 4730889185) AV area by cont VTI 2.9 cm2 (test code = 0980716063) AV area peak jed (test 2.4 cm2 code = 0357203795) Ao max PG (test code = 6.90 mm[Hg] 2770151143) AV peak gradient (test mmHg code = 7040879851) AV valve area (test code 2.90 cm2 = 4742212403) AV mean gradient (test mmHg code = 4012074815) Radiology Study observation (narrative) (test code = 01688-3) OSBALDO (test code = OSBALDO) ?Left?Ventricle: Left [...] apical, parasternal and subcostal views were obtained. [facility] 21:42:17 Test Item Value Reference Range Interpretation Comments Height (test code = in 0484395341) Weight (test code = lbs 4853728470) Systolic BP (test code = mmHg 7765227404) Diastolic BP (test code mmHg = 5238725108) Heart Rate (test code = bpm 9666218661) BSA (test code = 2.03 m2 6338166927) LVIDD (test code = 4.30 cm 1319785327) Left Ventricular End 84.4 mL Diastolic Volume by Teichholz Method (test code = 7695744) IVS (test code = 1.53 cm 5926216492) Interventricular Septum 1.53 cm Diastolic Thickness by 2D (test code = 4215962) LVPWD (test code = 1.40 cm 6482212739) PW (test code = 1.40 cm 0.6-1.1 2115488713) EF(Teich) (test code = 66.30 % 1564371475) LVIDS (test code = 2.80 cm 6283953700) Left Ventricular End 28.4 mL Systolic Volume by Teichholz Method (test code = 4480926) FS (test code = 36 % 9339945552) EF - 2D (test code = 66.30 % 75088298) LVOT diameter (test code 2.11 cm = 2477537373) LVOT area (test code = 3.50 cm2 7100864654) ACS (test code = 2.05 cm 1178084509) Ao root diam (test code 3.60 cm = 1265376646) Aortic root (test code = 3.6 cm 1251602132) Ao root annulus (test 3.6 cm code = 5988435504) LA size (test code = 4.1 cm 9486178575) E wave decelartion time 0.25 s (test code = 2203163674) MV Peak E Jed (test code 87.9 cm/s = 7492300168) MV Peak A Jed (test code 98.5 cm/s = 6849387329) E/A ratio (test code = ratio 4176734736) MV Prop V (test code = 54.80 cm/s 4179193880) Tapse (test code = 2.23 cm 8405951784) LVOT stroke volume (test 72.30 cm3 code = 6185191571) LVOT peak jed (test code 90.6 cm/s = 9995591228) LVOT mn grad (test code mmHg = 6361284548) AV LVOT peak gradient mmHg (test code = 2127386260) LVOT peak VTI (test code 20.8 cm = 3533017405) LV V1 mean (test code = 58.10 cm/s 7070324756) Aortic valve mean 78.9 cm/s velocity (test code = 9993403369) Ao peak jed (test code = 131.1 cm/s 6788545219) Ao VTI (test code = 24.9 cm 1178733319) AV area by cont VTI 2.9 cm2 (test code = 5550381815) AV area peak jed (test 2.4 cm2 code = 9254507914) Ao max PG (test code = 6.90 mm[Hg] 7001391737) AV peak gradient (test mmHg code = 3191544899) AV valve area (test code 2.90 cm2 = 2189188851) AV mean gradient (test mmHg code = 1131704727) Radiology Study observation (narrative) (test code = 62205-3) OSBALDO (test code = OSBALDO) ?Left?Ventricle: Left [...] apical, parasternal and subcostal views [facility] obtained[facility]12 Test Item Value Reference Range Interpretation Comments POCT GLU (test code = 4002948229) 307 mg/dL 70-110 H Lab Interpretation (test code = Abnormal 93026-9) [facility] 19:13:12 Test Item Value Reference Range Interpretation Comments POCT GLU (test code = 2896593354) 307 mg/dL 70-110 H Lab Interpretation (test code = Abnormal 83613-5) [facility], [id number] 18:52:18 Test Item Value Reference Range Interpretation Comments VIT D 25OH (test code = 19 ng/mL 25-80 L 64317-4) OSBALDO (test code = OSBALDO) Deficiency: <20 ng/mLInsufficiency: 20-24 ng/mLOptimal: 25-80 ng/mL Lab Interpretation (test Abnormal code = 36474-7) [facility], [id number] 18:52:18 Test Item Value Reference Range Interpretation Comments VIT D 25OH (test code = 19 ng/mL 25-80 L 72354-5) OSBALDO (test code = OSBALDO) Deficiency: <20 ng/mLInsufficiency: 20-24 ng/mLOptimal: 25-80 ng/mL Lab Interpretation (test Abnormal code = 01843-0) [facility] GLUCOSE (AUTOMATED)2022-04-22 13:14:31 Test Item Value Reference Range Interpretation Comments POCT GLU (test code = 4334721111) 236 mg/dL 70-110 H Lab Interpretation (test code = Abnormal 18862-9) [facility] GLUCOSE (AUTOMATED)2022-04-22 13:14:31 Test Item Value Reference Range Interpretation Comments POCT GLU (test code = 9187782865) 236 mg/dL 70-110 H Lab Interpretation (test code = Abnormal 10969-2) [facility] [id number] 13:03:45 Test Item Value Reference Interpretation Comments Range TROPONIN I (test See_Comment [Automated code = 1310921229) message] The system which generated this result [...] biotin. Lab Interpretation Normal (test code = 75027-4) [facility] [id number] 13:03:45 Test Item Value Reference Interpretation Comments Range TROPONIN I (test See_Comment [Automated code = 3155925313) message] The system which generated this result [...] biotin. Lab Interpretation Normal (test code = 19229-6) [facility] GLUCOSE (AUTOMATED)2022-04-22 12:44:36 Test Item Value Reference Range Interpretation Comments POCT GLU (test code = 1170150628) 339 mg/dL 70-110 H Lab Interpretation (test code = Abnormal 95214-4) [facility] GLUCOSE (AUTOMATED)2022-04-22 12:44:36 Test Item Value Reference Range Interpretation Comments POCT GLU (test code = 7281090473) 339 mg/dL 70-110 H Lab Interpretation (test code = Abnormal 06946-5) [facility] [id number] 11:12:35 Test Item Value Reference Range Interpretation Comments IRON (test code = 4746283977) 35 ug/dL 50-160 L TIBC (test code = 4717403707) 225 ug/dL 250-410 L % FE SAT (test code = 1479330549) 16 % 20-50 L Lab Interpretation (test code = Abnormal 66853-1) [facility] [id number] 11:12:35 Test Item Value Reference Range Interpretation Comments IRON (test code = 1334101487) 35 ug/dL 50-160 L TIBC (test code = 0323979483) 225 ug/dL 250-410 L % FE SAT (test code = 7800712323) 16 % 20-50 L Lab Interpretation (test code = Abnormal 53565-6) [facility] / [id number] 11:03:54 Test Item Value Reference Range Interpretation Comments PROTIME PATIENT (test See_Comment [Auto mated message] code = 5964-2) The system [employer] generated this result transmitted ref erence range: 12.0 - 1 4.7 Seconds. The re ference range was not u sed to interpret this result as normal/abnor mal. INR (test code = 6301-6) Nor mal INR <1.1; Warfarin Therap eutic range 2.0 to 3. 0 or 2.5 to 3.5, dep ending upon the indica tions. Lab Interpretation (test Normal code = 42890-5) [facility] / [id number] 11:03:54 Test Item Value Reference Range Interpretation Comments PROTIME PATIENT (test See_Comment [Auto mated message] code = 5964-2) The system [employer] generated this result transmitted ref erence range: 12.0 - 1 4.7 Seconds. The re ference range was not u sed to interpret this result as normal/abnor mal. INR (test code = 6301-6) Nor mal INR <1.1; Warfarin Therap eutic range 2.0 to 3. 0 or 2.5 to 3.5, dep ending upon the indica tions. Lab Interpretation (test Normal code = 57931-6) [facility] (A1C)2022-04-22 08:41:01 Test Item Value Reference Range Interpretation Comments HGB A1C (test code = 8.9 % 4-5.7 H 4548-4) OSBALDO (test code = OSBALDO) Reference RangesNormal: <5.7%Prediabetes: 5.7 - 6.4%Diabetes: > 6.5% Lab Interpretation (test Abnormal code = 80912-2) [facility] (A1C)2022-04-22 08:41:01 Test Item Value Reference Range Interpretation Comments HGB A1C (test code = 8.9 % 4-5.7 H 4548-4) OSBALDO (test code = OSBALDO) Reference RangesNormal: <5.7%Prediabetes: 5.7 - 6.4%Diabetes: > 6.5% Lab Interpretation (test Abnormal code = 78322-7) [facility] [id number] 00:25:04 Test Item Value Reference Interpretation Comments Range TROPONIN I (test See_Comment [Automated code = 8192572879) message] The system which generated this result [...] biotin. Lab Interpretation Normal (test code = 33851-5) [facility] [id number] 00:25:04 Test Item Value Reference Interpretation Comments Range TROPONIN I (test See_Comment [Automated code = 9518248052) message] The system which generated this result [...] biotin. Lab Interpretation Normal (test code = 94404-2) [facility] [id number] 00:21:41 Test Item Value Reference Range Interpretation Comments NT-proBNP (test code 2770 pg/mL See_Comment H [Autom ated = 8320622516) message] The system which generated this result transmitted reference range : <=125. The reference range was not used to interpret this result as normal/abnormal . OSBALDO (test code = OSBALDO) Biotin has been reported to cause a negative bias, interpret results relative to patient's use of biotin. Lab Interpretation Abnormal (test code = 64063-7) [facility] [id number] 00:21:41 Test Item Value Reference Range Interpretation Comments NT-proBNP (test code 2770 pg/mL See_Comment H [Autom ated = 8046938210) message] The system which generated this result transmitted reference range : <=125. The reference range was not used to interpret this result as normal/abnormal . OSBALDO (test code = OSBALDO) Biotin has been reported to cause a negative bias, interpret results relative to patient's use of biotin. Lab Interpretation Abnormal (test code = 40797-0) [facility] (NA, K, CL, CO2, GLUCOSE, BUN, CREATININE, CA)2022-04-22 00:12:38 Test Item Value Reference Range Interpretation Comments NA (test code = 136 mmol/L 135-145 1469502196) K (test code = 5.1 mmol/L 3.5-5 H 7755688440) CL (test code = 97 mmol/L 98-108 L 7023668460) CO2 TOTAL (test code = 28 mmol/L 23-31 0455306218) AGAP (test code = 2-16 4900597809) BUN (test code = 58 mg/dL 7-23 H 9000547457) GLUCOSE (test code = 183 mg/dL 70-110 H 1092295788) CREATININE (test code = 2.46 mg/dL 0.6-1.25 H 2449665564) CALCIUM (test code = 9.5 mg/dL 8.6-10.6 3894245004) eGFR (test code = mL/min/1.73m2 3198658169) OSBALDO (test code = OSBALDO) Association of [...] tests). Lab Interpretation Abnormal (test code = 91942-4) [facility] (NA, K, CL, CO2, GLUCOSE, BUN, CREATININE, CA)2022-04-22 00:12:38 Test Item Value Reference Range Interpretation Comments NA (test code = 136 mmol/L 135-145 1483754230) K (test code = 5.1 mmol/L 3.5-5 H 5355786362) CL (test code = 97 mmol/L 98-108 L 5837103629) CO2 TOTAL (test code = 28 mmol/L 23-31 7801846903) AGAP (test code = 2-16 0562320655) BUN (test code = 58 mg/dL 7-23 H 0751082825) GLUCOSE (test code = 183 mg/dL 70-110 H 8282014182) CREATININE (test code = 2.46 mg/dL 0.6-1.25 H 5825168718) CALCIUM (test code = 9.5 mg/dL 8.6-10.6 9665538182) eGFR (test code = mL/min/1.73m2 1858624171) OSBALDO (test code = OSBALDO) Association of [...] tests). Lab Interpretation Abnormal (test code = 49559-2) [facility] WITH [id number] 00:01:38 Test Item Value Reference Range Interpretation Comments WBC (test code = See_Comment H [Automated 6390-2) message] The sy stem which generated this result transmitted reference range : 4.20 - 10.70 10*3/?L. The reference range was not used to interpret this result as normal/abnormal . RBC (test code = See_Comment L [Automated 459-8) message] The sy stem which generated this [...] RDW-SD (test code = 50.0 fL 38.5-51.6 93510-6) RDW-CV (test code = 16.3 % 12.1-15.4 H 788-0) PLT (test code = See_Comment H [Automated 777-3) message] The sy stem which generated this result transmitted reference range : 150 - 328 10*3/ ?L. The reference r stevan was not used to interpret this result as normal/abnormal . MPV (test code = 9.3 fL 9.8-13 L 33574-5) NRBC/100 WBC (test See_Comment [Automat ed code = 1210392741) message] The system which generated this result transmitted reference range : 0.0 - 10.0 /100 WBCs. The refer ence range was not u sed to interpret th is result as normal/abnormal . NRBC x10^3 (test code See_Comment [Auto mated = 4210656177) message] The s ystem which generated this result transmitted reference range : 10*3/?L. The reference range was not used to interpret this result as normal/abnormal . GRAN MAT (NEUT) % 63.3 % (test code = 770-8) IMM GRAN % (test code 0.50 % = 2266002329) LYMPH % (test code = 22.5 % 736-9) MONO % (test code = 6.4 % 5905-5) EOS % (test code = 6.4 % 713-8) BASO % (test code = 0.9 % 706-2) GRAN MAT x10^3(ANC) 8.25 10*3/uL 1.99-6.95 H (test code = 3806790555) IMM GRAN x10^3 (test 0.07 10*3/uL 0-0.06 H code = 5123049418) LYMPH x10^3 (test code 2.93 10*3/uL 1.09-3.23 = 731-0) MONO x10^3 (test code 0.84 10*3/uL 0.36-1.02 = 742-7) EOS x10^3 (test code = 0.84 10*3/uL 0.06-0.53 H 711-2) BASO x10^3 (test code 0.12 10*3/uL 0.01-0.09 H = 704-7) Lab Interpretation Abnormal (test code = 04387-4) [facility] WITH [id number] 00:01:38 Test Item Value Reference Range Interpretation [...] RDW-SD (test code = 50.0 fL 38.5-51.6 40245-6) RDW-CV (test code = 16.3 % 12.1-15.4 H 788-0) PLT (test code = See_Comment H [Automated 777-3) message] The sy stem which generated this result transmitted reference range : 150 - 328 10*3/ ?L. The reference r stevan was not used to interpret this result as normal/abnormal . MPV (test code = 9.3 fL 9.8-13 L 24678-7) NRBC/100 WBC (test See_Comment [Automat ed code = 1570177651) message] The system which generated this result transmitted reference range : 0.0 - 10.0 /100 WBCs. The refer ence range was not u sed to interpret th is result as normal/abnormal . NRBC x10^3 (test code See_Comment [Auto mated = 5765280493) message] The s ystem which generated this result transmitted reference range : 10*3/?L. The reference range was not used to interpret this result as normal/abnormal . GRAN MAT (NEUT) % 63.3 % (test code = 770-8) IMM GRAN % (test code 0.50 % = 6683270398) LYMPH % (test code = 22.5 % 736-9) MONO % (test code = 6.4 % 5905-5) EOS % (test code = 6.4 % 713-8) BASO % (test code = 0.9 % 706-2) GRAN MAT x10^3(ANC) 8.25 10*3/uL 1.99-6.95 H (test code = 3968981935) IMM GRAN x10^3 (test 0.07 10*3/uL 0-0.06 H code = 0059285440) LYMPH x10^3 (test code 2.93 10*3/uL 1.09-3.23 = 731-0) MONO x10^3 (test code 0.84 10*3/uL 0.36-1.02 = 742-7) EOS x10^3 (test code = 0.84 10*3/uL 0.06-0.53 H 711-2) BASO x10^3 (test code 0.12 10*3/uL 0.01-0.09 H = 704-7) Lab Interpretation Abnormal (test code = 33965-9) [facility] [id number] 09:16:00 Test Item Value Reference Range Interpretation Comments Glucose Lvl (test code = Glucose Lvl) 264 70-99 [facility]2022-08-16 09:16:00 Test Item Value Reference Range Interpretation Comments BUN (test code = BUN) 54 7-22 [place] 351432-08-16 09:16:00 Test Item Value Reference Range Interpretation Comments Creatinine Lvl (test code = Creatinine 3.77 0.50-1.40 Lvl) [place] 351432-08-16 09:16:00 Test Item Value Reference Range Interpretation Comments Sodium Lvl (test code = Sodium Lvl) 131 135-145 [place] [address]-08-16 09:16:00 Test Item Value Reference Range Interpretation Comments Potassium Lvl (test code = Potassium 3.9 3.5-5.1 Lvl) [place] 351432-08-16 09:16:00 Test Item Value Reference Range Interpretation Comments Chloride Lvl (test code = Chloride Lvl) 96 95-109 [place] 351432-08-16 09:16:00 Test Item Value Reference Range Interpretation Comments CO2 (test code = CO2) 24 24-32 [place] 351432-08-16 09:16:00 Test Item Value Reference Range Interpretation Comments Calcium Lvl (test code = Calcium Lvl) 8.6 8.5-10.5 [place] 351432-08-16 09:16:00 Test Item Value Reference Range Interpretation Comments AGAP (test code = AGAP) 14.9 10.0-20.0 [place] [address]-08-16 09:16:00 Test Item Value Reference Range Interpretation Comments eGFR (test code = eGFR) 18 [place] [address]-08-16 09:16:00 Test Item Value Reference Range Interpretation Comments WBC (test code = WBC) 12.8 3.7-10.4 [place] [address]-08-16 09:16:00 Test Item Value Reference Range Interpretation Comments RBC (test code = RBC) 4.04 4.70-6.10 [place] [address]-08-16 09:16:00 Test Item Value Reference Range Interpretation Comments Hgb (test code = Hgb) 11.1 14.0-18.0 [place] [address]-08-16 09:16:00 Test Item Value Reference Range Interpretation Comments Hct (test code = Hct) 33.6 42.0-54.0 [place] [address]-08-16 09:16:00 Test Item Value Reference Range Interpretation Comments MCV (test code = MCV) 83.4 80.0-94.0 [place] 629532-08-16 09:16:00 Test Item Value Reference Range Interpretation Comments MCH (test code = MCH) 27.6 pg 27.0-31.0 [place] 629532-08-16 09:16:00 Test Item Value Reference Range Interpretation Comments MCHC (test code = MCHC) 33.1 32.0-36.0 [place] 629532-08-16 09:16:00 Test Item Value Reference Range Interpretation Comments RDW (test code = RDW) 15.9 11.5-14.5 [place] 629532-08-16 09:16:00 Test Item Value Reference Range Interpretation Comments Platelet (test code = Platelet) 512 133-450 [facility]CHYK[facility]KYI9405[facility]87-58 09:16:00 Test Item Value Reference Range Interpretation Comments MPV (test code = MPV) 7.5 7.4-10.4 [place] 351432-08-15 08:43:00 Test Item Value Reference Range Interpretation Comments Phosphorus (test code = Phosphorus) 5.2 2.5-4.5 [place] 351432-08-15 08:43:00 Test Item Value Reference Range Interpretation Comments Magnesium Lvl (test code = Magnesium 2.6 1.8-2.4 Lvl) [place] 351432-08-15 08:43:00 Test Item Value Reference Range Interpretation Comments Glucose Lvl (test code = Glucose Lvl) 133 70-99 [place] 351432-08-15 08:43:00 Test Item Value Reference Range Interpretation Comments BUN (test code = BUN) 93 7-22 [place] 351432-08-15 08:43:00 Test Item Value Reference Range Interpretation Comments Creatinine Lvl (test code = Creatinine 5.58 0.50-1.40 Lvl) [place] 351432-08-15 08:43:00 Test Item Value Reference Range Interpretation Comments Sodium Lvl (test code = Sodium Lvl) 130 135-145 [place] 351432-08-15 08:43:00 Test Item Value Reference Range Interpretation Comments Potassium Lvl (test code = Potassium 4.2 3.5-5.1 Lvl) [place] 351432-08-15 08:43:00 Test Item Value Reference Range Interpretation Comments Chloride Lvl (test code = Chloride Lvl) 95 95-109 [place] 351432-08-15 08:43:00 Test Item Value Reference Range Interpretation Comments CO2 (test code = CO2) 22 24-32 [place] [address]-08-15 08:43:00 Test Item Value Reference Range Interpretation Comments AGAP (test code = AGAP) 17.2 10.0-20.0 [place] 351432-08-15 08:43:00 Test Item Value Reference Range Interpretation Comments Calcium Lvl (test code = Calcium Lvl) 8.8 8.5-10.5 [place] 351432-08-15 08:43:00 Test Item Value Reference Range Interpretation Comments B/C Ratio (test code = B/C Ratio) 17 1 6-25 [place] [address]-08-15 08:43:00 Test Item Value Reference Range Interpretation Comments Total Protein (test code = Total 7.1 6.4-8.4 Protein) [place] 351432-08-15 08:43:00 Test Item Value Reference Range Interpretation Comments Albumin Lvl (test code = Albumin Lvl) 2.1 3.5-5.0 [place] 351432-08-15 08:43:00 Test Item Value Reference Range Interpretation Comments Globulin (test code = Globulin) 5.0 2.7-4.2 [place] 351432-08-15 08:43:00 Test Item Value Reference Range Interpretation Comments A/G Ratio (test code = A/G Ratio) 0.4 1 0.7-1.6 [place] [address]-08-15 08:43:00 Test Item Value Reference Range Interpretation Comments ALT (test code = ALT) 28 <=65 [place] 351432-08-15 08:43:00 Test Item Value Reference Range Interpretation Comments AST (test code = AST) 16 <=37 [place] [address]-08-15 08:43:00 Test Item Value Reference Range Interpretation Comments Alk Phos (test code = Alk Phos) 163 39-136 [place] 351432-08-15 08:43:00 Test Item Value Reference Range Interpretation Comments Bili Total (test code = Bili Total) 0.7 0.2-1.3 [facility]2022-08-15 08:43:00 Test Item Value Reference Range Interpretation Comments eGFR (test code = eGFR) 11 [facility]XadldtgRARNOXNZAL9861-89-94 08:43:00 Test Item Value Reference Range Interpretation Comments WBC (test code = WBC) 13.9 3.7-10.4 [facility]oWNFPGLGGTA0141-19-48 08:43:00 Test Item Value Reference Range Interpretation Comments RBC (test code = RBC) 3.84 4.70-6.10 [facility] RockOrwksgaMSOKRAGDFB8127-47-01 08:43:00 Test Item Value Reference Range Interpretation Comments Hgb (test code = Hgb) 11.0 14.0-18.0 [facility] MichiganTunapnsIIJDXDVAFW7952-73-10 08:43:00 Test Item Value Reference Range Interpretation Comments Hct (test code = Hct) 31.7 42.0-54.0 [facility]FitlziuWJXNWMKXOA7210-13-62 08:43:00 Test Item Value Reference Range Interpretation Comments MCV (test code = MCV) 82.6 80.0-94.0 [facility] RockMjuemfbTBGZUOZYBD4320-42-51 08:43:00 Test Item Value Reference Range Interpretation Comments MCH (test code = MCH) 28.7 pg 27.0-31.0 [facility] RockDwgueblOOAOPRCBGM7299-98-06 08:43:00 Test Item Value Reference Range Interpretation Comments MCHC (test code = MCHC) 34.8 32.0-36.0 [facility] RockIhposrpPYZLKFQAKP7923-24-92 08:43:00 Test Item Value Reference Range Interpretation Comments RDW (test code = RDW) 15.7 11.5-14.5 [facility] RockVuyxpikFZSTVNKXFN8459-36-46 08:43:00 Test Item Value Reference Range Interpretation Comments Platelet (test code = Platelet) 521 133-450 [facility] RockUrqejwzHWPGCVLPQH8858-01-30 08:43:00 Test Item Value Reference Range Interpretation Comments MPV (test code = MPV) 7.7 7.4-10.4 [facility] HospitalPwrfcktPLORMNGYLF9289-40-97 08:43:00 Test Item Value Reference Range Interpretation Comments Segs (test code = Segs) 61.8 45.0-75.0 [place] [address]-08-15 08:43:00 Test Item Value Reference Range Interpretation Comments Lymphocytes (test code = Lymphocytes) 19.7 20.0-40.0 [place] [address]-08-15 08:43:00 Test Item Value Reference Range Interpretation Comments Monocytes (test code = Monocytes) 9.0 2.0-12.0 [place] [address]-08-15 08:43:00 Test Item Value Reference Range Interpretation Comments Eosinophils (test code = Eosinophils) 8.2 <=4.0 [place] [address]-08-15 08:43:00 Test Item Value Reference Range Interpretation Comments Basophils (test code = Basophils) 1.3 <=1.0 [address]08-15 08:43:00 Test Item Value Reference Range Interpretation Comments Neutrophils # (test code = Neutrophils 8.6 1.5-8.1 #) [address]08-15 08:43:00 Test Item Value Reference Range Interpretation Comments Lymphocytes # (test code = Lymphocytes 2.7 1.0-5.5 #) [address]08-15 08:43:00 Test Item Value Reference Range Interpretation Comments Monocytes # (test code = Monocytes #) 1.3 <=0.8 [address]08-15 08:43:00 Test Item Value Reference Range Interpretation Comments Eosinophils # (test code = Eosinophils 1.1 <=0.5 #) [address]08-15 08:43:00 Test Item Value Reference Range Interpretation Comments Basophils # (test code = Basophils #) 0.2 <=0.2 [place] 351432-08-14 09:39:00 Test Item Value Reference Range Interpretation Comments Glucose Lvl (test code = Glucose Lvl) 195 70-99 [place] 351432-08-14 09:39:00 Test Item Value Reference Range Interpretation Comments BUN (test code = BUN) 76 7-22 [place] 351432-08-14 09:39:00 Test Item Value Reference Range Interpretation Comments Creatinine Lvl (test code = Creatinine 4.93 0.50-1.40 Lvl) [place] 351432-08-14 09:39:00 Test Item Value Reference Range Interpretation Comments Sodium Lvl (test code = Sodium Lvl) 130 135-145 [place] 351432-08-14 09:39:00 Test Item Value Reference Range Interpretation Comments Potassium Lvl (test code = Potassium 4.2 3.5-5.1 Lvl) [place] 351432-08-14 09:39:00 Test Item Value Reference Range Interpretation Comments Chloride Lvl (test code = Chloride Lvl) 96 95-109 [place] 351432-08-14 09:39:00 Test Item Value Reference Range Interpretation Comments CO2 (test code = CO2) 23 24-32 [place] 351432-08-14 09:39:00 Test Item Value Reference Range Interpretation Comments AGAP (test code = AGAP) 15.2 10.0-20.0 [place] 351432-08-14 09:39:00 Test Item Value Reference Range Interpretation Comments Calcium Lvl (test code = Calcium Lvl) 8.8 8.5-10.5 [place] 351432-08-14 09:39:00 Test Item Value Reference Range Interpretation Comments eGFR (test code = eGFR) 13 [place] 351432-08-14 09:39:00 Test Item Value Reference Range Interpretation Comments Magnesium Lvl (test code = Magnesium 2.5 1.8-2.4 Lvl) [place] 351432-08-14 09:39:00 Test Item Value Reference Range Interpretation Comments Phosphorus (test code = Phosphorus) 4.9 2.5-4.5 [place] 629532-08-14 09:39:00 Test Item Value Reference Range Interpretation Comments Segs (test code = Segs) 59.7 45.0-75.0 [place] [address]-08-14 09:39:00 Test Item Value Reference Range Interpretation Comments Lymphocytes (test code = Lymphocytes) 19.7 20.0-40.0 [place] [address]-08-14 09:39:00 Test Item Value Reference Range Interpretation Comments Monocytes (test code = Monocytes) 10.6 2.0-12.0 [place] [address]-08-14 09:39:00 Test Item Value Reference Range Interpretation Comments Eosinophils (test code = Eosinophils) 9.1 <=4.0 [place] [address]-08-14 09:39:00 Test Item Value Reference Range Interpretation Comments Basophils (test code = Basophils) 0.9 <=1.0 [facility] HospitalRzatqbsLZHAIVXBRU7035-83-12 09:39:00 Test Item Value Reference Range Interpretation Comments Neutrophils # (test code = Neutrophils 8.4 1.5-8.1 #) [facility] HospitalEdheqocUYZGZPUWXH8337-62-12 09:39:00 Test Item Value Reference Range Interpretation Comments Lymphocytes # (test code = Lymphocytes 2.8 1.0-5.5 #) [facility] HospitalHzcdtxrSLVLXMJJHC9815-09-19 09:39:00 Test Item Value Reference Range Interpretation Comments Monocytes # (test code = Monocytes #) 1.5 <=0.8 [place] 629532-08-14 09:39:00 Test Item Value Reference Range Interpretation Comments Eosinophils # (test code = Eosinophils 1.3 <=0.5 #) [facility] HospitalIbmwujhPYTKAXNSSG4238-96-62 09:39:00 Test Item Value Reference Range Interpretation Comments Basophils # (test code = Basophils #) 0.1 <=0.2 [facility] HospitalRyxadtkRDIQOGYIGC1862-09-06 09:39:00 Test Item Value Reference Range Interpretation Comments WBC (test code = WBC) 14.0 3.7-10.4 [facility] HospitalDgbzjjhRYMIOMSCHB9967-14-04 09:39:00 Test Item Value Reference Range Interpretation Comments RBC (test code = RBC) 4.04 4.70-6.10 [facility] HospitalYhaewftWHYDUWPXNN0514-14-34 09:39:00 Test Item Value Reference Range Interpretation Comments Hgb (test code = Hgb) 11.3 14.0-18.0 [facility] HospitalBzttczfBTLOEBETMS5884-11-25 09:39:00 Test Item Value Reference Range Interpretation Comments Hct (test code = Hct) 33.7 42.0-54.0 [facility] HospitalKvjvotaIYRGOYWJZK6130-08-57 09:39:00 Test Item Value Reference Range Interpretation Comments MCV (test code = MCV) 83.4 80.0-94.0 [facility] HospitalJqmktzyOFJKRBBUDZ4191-13-25 09:39:00 Test Item Value Reference Range Interpretation Comments MCH (test code = MCH) 28.0 pg 27.0-31.0 [place] 629532-08-14 09:39:00 Test Item Value Reference Range Interpretation Comments MCHC (test code = MCHC) 33.6 32.0-36.0 [facility] HospitalEakbgjsZKVAVPJPHQ7604-24-58 09:39:00 Test Item Value Reference Range Interpretation Comments RDW (test code = RDW) 15.8 11.5-14.5 [facility] HospitalEepntvsDRNOBWBBRV8379-39-84 09:39:00 Test Item Value Reference Range Interpretation Comments Platelet (test code = Platelet) 532 133-450 [facility] HospitalZnowhsxBCTEBGTBXN0162-58-94 09:39:00 Test Item Value Reference Range Interpretation Comments MPV (test code = MPV) 7.7 7.4-10.4 [facility]2022-08-13 10:36:00 Test Item Value Reference Range Interpretation Comments Total Protein (test code = Total 7.4 6.4-8.4 Protein) [facility]2022-08-13 10:36:00 Test Item Value Reference Range Interpretation Comments Albumin Lvl (test code = Albumin Lvl) 2.1 3.5-5.0 [facility]2022-08-13 10:36:00 Test Item Value Reference Range Interpretation Comments ALT (test code = ALT) 24 <=65 [facility]2022-08-13 10:36:00 Test Item Value Reference Range Interpretation Comments AST (test code = AST) 24 <=37 [facility]2022-08-13 10:36:00 Test Item Value Reference Range Interpretation Comments Alk Phos (test code = Alk Phos) 171 39-136 [facility]2022-08-13 10:36:00 Test Item Value Reference Range Interpretation Comments Bili Total (test code = Bili Total) 0.6 0.2-1.3 [facility]2022-08-13 10:36:00 Test Item Value Reference Range Interpretation Comments B/C Ratio (test code = B/C Ratio) 13 1 6-25 [facility]2022-08-13 10:36:00 Test Item Value Reference Range Interpretation Comments Globulin (test code = Globulin) 5.3 2.7-4.2 [facility]2022-08-13 10:36:00 Test Item Value Reference Range Interpretation Comments A/G Ratio (test code = A/G Ratio) 0.4 1 0.7-1.6 [place] 629532-08-13 10:36:00 Test Item Value Reference Range Interpretation Comments Segs (test code = Segs) 57.6 45.0-75.0 [facility] HospitalWqtnedtEDUGSPHWQB7121-01-65 10:36:00 Test Item Value Reference Range Interpretation Comments Lymphocytes (test code = Lymphocytes) 19.6 20.0-40.0 [facility] HospitalXhvzljrHYEVBTVYWK7701-55-60 10:36:00 Test Item Value Reference Range Interpretation Comments Monocytes (test code = Monocytes) 13.0 2.0-12.0 [facility] HospitalZozlkwmYYZGAHPQUR6687-60-27 10:36:00 Test Item Value Reference Range Interpretation Comments Eosinophils (test code = Eosinophils) 8.5 <=4.0 [facility] HospitalCdwmnxaXOMARZBNFT6076-78-79 10:36:00 Test Item Value Reference Range Interpretation Comments Basophils (test code = Basophils) 1.3 <=1.0 [facility] HospitalQzuissxZFJZHTPNPA9082-18-14 10:36:00 Test Item Value Reference Range Interpretation Comments Neutrophils # (test code = Neutrophils 7.0 1.5-8.1 #) [facility] HospitalYysuhemWKYERPYPJH8795-76-59 10:36:00 Test Item Value Reference Range Interpretation Comments Lymphocytes # (test code = Lymphocytes 2.4 1.0-5.5 #) [facility] HospitalCstnfwhNXBYDOMLZY5897-70-21 10:36:00 Test Item Value Reference Range Interpretation Comments Monocytes # (test code = Monocytes #) 1.6 <=0.8 [facility] HospitalNxplfptLQCLSLYPYV8946-13-02 10:36:00 Test Item Value Reference Range Interpretation Comments Eosinophils # (test code = Eosinophils 1.0 <=0.5 #) [facility] HospitalLfoxanhVFHHQASPMG7479-80-78 10:36:00 Test Item Value Reference Range Interpretation Comments Basophils # (test code = Basophils #) 0.2 <=0.2 [facility] AND [id number] 11:07:00 Test Item Value Reference Range Interpretation Comments UA WBC (test code = UA WBC) no gt <=5 [facility] [id number] 11:07:00 Test Item Value Reference Range Interpretation Comments UA RBC (test code = UA RBC) 70 <=2 [facility]ann[facility] [id number] 11:07:00 Test Item Value Reference Range Interpretation Comments UA Bacteria (test code = UA Many /HPF Bacteria) [facility] AND [id number] 11:07:00 Test Item Value Reference Range Interpretation Comments UA Color (test code = Yellow *NA*(03/11/22 UA Color) 6:07 AM) [facility] AND [id number] 11:07:00 Test Item Value Reference Range Interpretation Comments UA Turbidity (test code = Clear (03/11/22 6:07 UA Turbidity) AM) [facility] AND [id number] 11:07:00 Test Item Value Reference Range Interpretation Comments UA Spec Grav (test code = UA Spec 1.015 1 Grav) [facility] AND [id number] 11:07:00 Test Item Value Reference Range Interpretation Comments UA pH (test code = UA pH) 6.0 1 5.0-8.0 [facility] AND [id number] 11:07:00 Test Item Value Reference Range Interpretation Comments UA Protein (test code = UA Protein) 100 mg/dL [facility] AND [id number] 11:07:00 Test Item Value Reference Range Interpretation Comments UA Glucose (test code Negative (03/11/22 6:07 = UA Glucose) AM) [facility] AND [id number] 11:07:00 Test Item Value Reference Range Interpretation Comments UA Ketones (test code Negative *NA*(03/11/22 = UA Ketones) 6:07 AM) [facility] AND [id number] 11:07:00 Test Item Value Reference Range Interpretation Comments UA Bili (test code = Negative *NA*(03/11/22 UA Bili) 6:07 AM) [facility] AND [id number] 11:07:00 Test Item Value Reference Range Interpretation Comments UA Blood (test code = Large *ABN*(03/11/22 UA Blood) 6:07 AM) [facility] AND [id number] 11:07:00 Test Item Value Reference Range Interpretation Comments UA Urobilinogen (test code = UA 0.2 0.1-1.0 Urobilinogen) [facility] AND [id number] 11:07:00 Test Item Value Reference Range Interpretation Comments UA Nitrite (test code Negative (03/11/22 6:07 = UA Nitrite) AM) [facility] [id number] 11:07:00 Test Item Value Reference Range Interpretation Comments UA Leuk Est (test code Large *ABN*(03/11/22 = UA Leuk Est) 6:07 AM) [facility] [id number] 11:07:00 Test Item Value Reference Range Interpretation Comments UA Sq Epi (test code = None Seen (03/11/22 6:07 UA Sq Epi) AM) [facility] [id number] 11:07:00 Test Item Value Reference Range Interpretation Comments Culture: Urine (test 10,000 - 50,000 CFU/mL code = Culture: Urine) Yeast [facility] [place] [id number] 08:55:00 Test Item Value Reference Range Interpretation Comments Total Protein (test code = Total 7.1 6.4-8.4 Protein) [facility] [place] [id number] 08:55:00 Test Item Value Reference Range Interpretation Comments Albumin Lvl (test code = Albumin Lvl) 2.1 3.5-5.0 [facility] [place] [id number] 08:55:00 Test Item Value Reference Range Interpretation Comments ALT (test code = ALT) 22 <=65 [facility] TaylorannCHEM [id number] 08:55:00 Test Item Value Reference Range Interpretation Comments AST (test code = AST) 23 <=37 [facility] TaylorannCHEM [id number] 08:55:00 Test Item Value Reference Range Interpretation Comments Alk Phos (test code = Alk Phos) 171 39-136 [facility] [place] [id number] 08:55:00 Test Item Value Reference Range Interpretation Comments Bili Total (test code = Bili Total) 0.5 0.2-1.3 [facility] [place] [id number] 08:55:00 Test Item Value Reference Range Interpretation Comments B/C Ratio (test code = B/C Ratio) 13 1 6-25 [facility]CHEM [id number] 08:55:00 Test Item Value Reference Range Interpretation Comments Globulin (test code = Globulin) 5.0 2.7-4.2 [facility] [place] [id number] 08:55:00 Test Item Value Reference Range Interpretation Comments A/G Ratio (test code = A/G Ratio) 0.4 1 0.7-1.6 [facility] TaylorannBACTERIAL - [id number] 22:51:00 Test Item Value Reference Range Interpretation Comments Source Strep (test code Urine *NA*(03/07/22 5:51 = Source Strep) PM) [facility] RockBACT[facility] - [id number] 22:51:00 Test Item Value Reference Range Interpretation Comments Strep pneumoniae Ag Negative (03/07/22 5:51 (test code = Strep PM) pneumoniae Ag) [facility] VNBHHDXJJS8597-09-06 16:04:00 Test Item Value Reference Range Interpretation Comments Source Respiratory Nasophrngl Swb Panel PCR (test code = *NA*(03/07/22 11:04 AM) Source Respiratory Panel PCR) [facility] [id number] 16:04:00 Test Item Value Reference Range Interpretation Comments Influenza A PCR (test Negative *NA*(03/07/22 code = Influenza A PCR) 11:04 AM) [facility] [id number] 16:04:00 Test Item Value Reference Range Interpretation Comments Influenza B PCR (test Negative *NA*(03/07/22 code = Influenza B PCR) 11:04 AM) [facility] [id number] 16:04:00 Test Item Value Reference Range Interpretation Comments RSV PCR (test code = Negative *NA*(03/07/22 RSV PCR) 11:04 AM) [facility] [id number] 10:14:00 Test Item Value Reference Range Interpretation Comments Glucose Lvl (test code = Glucose Lvl) 259 70-99 [facility] [id number] 10:14:00 Test Item Value Reference Range Interpretation Comments BUN (test code = BUN) 53 7-22 [facility] [id number] 10:14:00 Test Item Value Reference Range Interpretation Comments Creatinine Lvl (test code = Creatinine 5.32 0.50-1.40 Lvl) [facility] [id number] 10:14:00 Test Item Value Reference Range Interpretation Comments Sodium Lvl (test code = Sodium Lvl) 137 135-145 [facility] [id number] 10:14:00 Test Item Value Reference Range Interpretation Comments Potassium Lvl (test code = Potassium 3.1 3.5-5.1 Lvl) [place] 351432-08-07 10:14:00 Test Item Value Reference Range Interpretation Comments Chloride Lvl (test code = Chloride Lvl) 100 95-109 [place] 351432-08-07 10:14:00 Test Item Value Reference Range Interpretation Comments CO2 (test code = CO2) 27 24-32 [place] 351432-08-07 10:14:00 Test Item Value Reference Range Interpretation Comments Calcium Lvl (test code = Calcium Lvl) 8.7 8.5-10.5 [place] 351432-08-07 10:14:00 Test Item Value Reference Range Interpretation Comments AGAP (test code = AGAP) 13.1 10.0-20.0 [place] 351432-08-07 10:14:00 Test Item Value Reference Range Interpretation Comments eGFR (test code = eGFR) 12 [place] 629532-08-07 10:14:00 Test Item Value Reference Range Interpretation Comments WBC (test code = WBC) 15.5 3.7-10.4 [place] [address]-08-07 10:14:00 Test Item Value Reference Range Interpretation Comments RBC (test code = RBC) 3.41 4.70-6.10 [place] 629532-08-07 10:14:00 Test Item Value Reference Range Interpretation Comments Hgb (test code = Hgb) 9.5 14.0-18.0 [place] [address]-08-07 10:14:00 Test Item Value Reference Range Interpretation Comments Hct (test code = Hct) 29.4 42.0-54.0 [place] [address]-08-07 10:14:00 Test Item Value Reference Range Interpretation Comments MCV (test code = MCV) 86.2 80.0-94.0 [place] [address]-08-07 10:14:00 Test Item Value Reference Range Interpretation Comments MCH (test code = MCH) 28.0 pg 27.0-31.0 [place] 629532-08-07 10:14:00 Test Item Value Reference Range Interpretation Comments MCHC (test code = MCHC) 32.5 32.0-36.0 [place] 629532-08-07 10:14:00 Test Item Value Reference Range Interpretation Comments RDW (test code = RDW) 15.6 11.5-14.5 [facility] H[id number] 10:14:00 Test Item Value Reference Range Interpretation Comments Platelet (test code = Platelet) 387 133-450 [facility] HospitalUqdglvxMUOUWSYGKF2046-20-02 10:14:00 Test Item Value Reference Range Interpretation Comments MPV (test code = MPV) 7.4 7.4-10.4 [place] 629532-08-07 10:14:00 Test Item Value Reference Range Interpretation Comments Segs (test code = Segs) 58.9 45.0-75.0 [facility] HospitalCawwpznXXAXVUCCEK5035-46-75 10:14:00 Test Item Value Reference Range Interpretation Comments Lymphocytes (test code = Lymphocytes) 16.3 20.0-40.0 [facility] HospitalHiifkdzKFAMWBTUDS6502-72-01 10:14:00 Test Item Value Reference Range Interpretation Comments Monocytes (test code = Monocytes) 8.7 2.0-12.0 [facility] HospitalKwqhfpoKZBXKPVEMG8528-33-78 10:14:00 Test Item Value Reference Range Interpretation Comments Eosinophils (test code = Eosinophils) 15.1 <=4.0 [facility] HospitalPiyijleNAPLGSLJVO7393-63-42 10:14:00 Test Item Value Reference Range Interpretation Comments Basophils (test code = Basophils) 1.0 <=1.0 [facility] HospitalKpljauhAFANIZVOMU6262-20-39 10:14:00 Test Item Value Reference Range Interpretation Comments Neutrophils # (test code = Neutrophils 9.1 1.5-8.1 #) [facility] HospitalOravismFNTPXDFUNS5090-00-40 10:14:00 Test Item Value Reference Range Interpretation Comments Lymphocytes # (test code = Lymphocytes 2.5 1.0-5.5 #) [facility] HospitalNlduputIFJZSFYKDV6555-35-37 10:14:00 Test Item Value Reference Range Interpretation Comments Monocytes # (test code = Monocytes #) 1.3 <=0.8 [place] 629532-08-07 10:14:00 Test Item Value Reference Range Interpretation Comments Eosinophils # (test code = Eosinophils 2.3 <=0.5 #) [facility] HospitalHlxorxcXWATYIOHEV9013-38-26 10:14:00 Test Item Value Reference Range Interpretation Comments Basophils # (test code = Basophils #) 0.2 <=0.2 [facility]:SUSC:PT:ISOLATE:ORDQN:[id number] 16:32:00 Test Item Value Reference Range Interpretation Comments Gram Stain Report Gram Stain Performed By: (test code = Gram [facility] Stain Report) [facility]US[facility]:PT:ISOLATE:ORDQN:[id number] 16:32:00 Test Item Value Reference Range Interpretation Comments Culture: Respiratory Many Pseudomonas w/Gram Stain (test code aeruginosa Multi-drug = Culture: Respiratory Resistant Organism w/Gram Stain) [facility]:SUSC:PT:ISOLATE:ORDQN:[id number] 16:32:00 Test Item Value Reference Range Interpretation Comments Pseudomonas aeruginosa Pseudomonas aeruginosa (test code = Pseudomonas aeruginosa) [facility]annG[facility] Stain [id number] 16:32:00 Test Item Value Reference Range Interpretation Comments Gram Stain Report Gram Stain Performed By: (test code = Gram [facility] Stain Report) [facility]: Respiratory w/Gram [id number] 16:32:00 Test Item Value Reference Range Interpretation Comments Culture: Respiratory Many Pseudomonas w/Gram Stain (test code aeruginosa Sensitivity = Culture: Respiratory Pending w/Gram Stain) [facility] TaylorSlzopzsJBCUSGLZZA2247-74-30 12:43:00 Test Item Value Reference Range Interpretation Comments Hep Bs Ag (test code Negative *NA*(03/04/22 = Hep Bs Ag) 7:43 AM) [facility] RockYqxbeeiEVSXMSEPXI7099-45-22 12:43:00 Test Item Value Reference Range Interpretation Comments Hep Bs Ab (test code = Hep Bs Ab) no gt [facility] TaylorRetrophin [id number] 08:44:00 Test Item Value Reference Range Interpretation Comments Glucose Lvl (test code = Glucose Lvl) 212 70-99 [facility] TaylorRetrophin [id number] 08:44:00 Test Item Value Reference Range Interpretation Comments BUN (test code = BUN) 49 7-22 [facility] [place] [id number] 08:44:00 Test Item Value Reference Range Interpretation Comments Creatinine Lvl (test code = Creatinine 5.92 0.50-1.40 Lvl) [place] 351432-08-05 08:44:00 Test Item Value Reference Range Interpretation Comments Sodium Lvl (test code = Sodium Lvl) 138 135-145 [place] 351432-08-05 08:44:00 Test Item Value Reference Range Interpretation Comments Potassium Lvl (test code = Potassium 3.8 3.5-5.1 Lvl) [place] 351432-08-05 08:44:00 Test Item Value Reference Range Interpretation Comments Chloride Lvl (test code = Chloride Lvl) 97 95-109 [place] 351432-08-05 08:44:00 Test Item Value Reference Range Interpretation Comments CO2 (test code = CO2) 26 24-32 [place] 351432-08-05 08:44:00 Test Item Value Reference Range Interpretation Comments AGAP (test code = AGAP) 18.8 10.0-20.0 [place] 351432-08-05 08:44:00 Test Item Value Reference Range Interpretation Comments Calcium Lvl (test code = Calcium Lvl) 8.8 8.5-10.5 [place] 351432-08-05 08:44:00 Test Item Value Reference Range Interpretation Comments eGFR (test code = eGFR) 11 [place] 629532-08-05 08:44:00 Test Item Value Reference Range Interpretation Comments WBC (test code = WBC) 22.3 3.7-10.4 [place] 629532-08-05 08:44:00 Test Item Value Reference Range Interpretation Comments RBC (test code = RBC) 3.52 4.70-6.10 [place] 629532-08-05 08:44:00 Test Item Value Reference Range Interpretation Comments Hgb (test code = Hgb) 10.0 14.0-18.0 [place] [address]-08-05 08:44:00 Test Item Value Reference Range Interpretation Comments Hct (test code = Hct) 30.7 42.0-54.0 [place] [address]-08-05 08:44:00 Test Item Value Reference Range Interpretation Comments MCV (test code = MCV) 87.3 80.0-94.0 [place] [address]-08-05 08:44:00 Test Item Value Reference Range Interpretation Comments MCH (test code = MCH) 28.4 pg 27.0-31.0 [facility] HospitalErezyqjWTWXQXXCJR4271-88-76 08:44:00 Test Item Value Reference Range Interpretation Comments MCHC (test code = MCHC) 32.6 32.0-36.0 [facility] HospitalWpogldpJQZPRZPLSS2956-44-19 08:44:00 Test Item Value Reference Range Interpretation Comments RDW (test code = RDW) 15.7 11.5-14.5 [facility] HospitalDkgybyhVPQNMYYPFW2192-04-35 08:44:00 Test Item Value Reference Range Interpretation Comments Platelet (test code = Platelet) 410 133-450 [facility] HospitalBuhtntpTXOBBQWAPG8322-99-07 08:44:00 Test Item Value Reference Range Interpretation Comments MPV (test code = MPV) 7.1 7.4-10.4 [facility] HospitalPntvpprNKWCHCUYJL9075-44-96 08:44:00 Test Item Value Reference Range Interpretation Comments Segs (test code = Segs) 78.4 45.0-75.0 [facility] HospitalYgagovyMOBULGJGBA8213-33-08 08:44:00 Test Item Value Reference Range Interpretation Comments Lymphocytes (test code = Lymphocytes) 5.9 20.0-40.0 [facility] HospitalLqsmenuMJHPWPRYPB6366-08-55 08:44:00 Test Item Value Reference Range Interpretation Comments Monocytes (test code = Monocytes) 4.9 2.0-12.0 [facility] HospitalBjvrgjkZVMQUYSJBD6366-27-43 08:44:00 Test Item Value Reference Range Interpretation Comments Eosinophils (test code = Eosinophils) 10.4 <=4.0 [facility] HospitalCspnnaoTKYJJJALRS1170-67-45 08:44:00 Test Item Value Reference Range Interpretation Comments Basophils (test code = Basophils) 0.4 <=1.0 [facility] HospitalJhywpjaASTWWKVNZM5209-01-39 08:44:00 Test Item Value Reference Range Interpretation Comments Neutrophils # (test code = Neutrophils 17.5 1.5-8.1 #) [facility] HospitalFlnecekSFWCRDTZSM6394-08-69 08:44:00 Test Item Value Reference Range Interpretation Comments Lymphocytes # (test code = Lymphocytes 1.3 1.0-5.5 #) [facility] HospitalKyirpdvYGQCXGCZAU1875-51-42 08:44:00 Test Item Value Reference Range Interpretation Comments Monocytes # (test code = Monocytes #) 1.1 <=0.8 [place] 629532-08-05 08:44:00 Test Item Value Reference Range Interpretation Comments Eosinophils # (test code = Eosinophils 2.3 <=0.5 #) [facility] RockMntsrykTIEUEOFGRV2956-66-04 08:44:00 Test Item Value Reference Range Interpretation Comments Basophils # (test code = Basophils #) 0.1 <=0.2 [facility] RockDzkuuvnEWQVLTBKSR1992-57-70 08:44:00 Test Item Value Reference Range Interpretation Comments Vancomycin AUC (test code = Vancomycin 44.5 AUC) [facility] [id number] 00:45:00 Test Item Value Reference Range Interpretation Comments MRSA by PCR (test Negative (03/03/22 7:45 code = MRSA by PCR) PM) [facility] [id number] 23:26:00 Test Item Value Reference Range Interpretation Comments Source Strep (test code Urine *NA*(03/03/22 6:26 = Source Strep) PM) [facility] [id number] 23:26:00 Test Item Value Reference Range Interpretation Comments Strep pneumoniae Ag Negative (03/03/22 6:26 (test code = Strep PM) pneumoniae Ag) [facility]2022-08-04 12:12:00 Test Item Value Reference Range Interpretation Comments Glucose Lvl (test code = Glucose Lvl) 108 70-99 [facility] Taylor[facility] [id number] 12:12:00 Test Item Value Reference Range Interpretation Comments BUN (test code = BUN) 35 7-22 [facility] Taylor[facility] [id number] 12:12:00 Test Item Value Reference Range Interpretation Comments Creatinine Lvl (test code = Creatinine 4.87 0.50-1.40 Lvl) [facility] [facility] [place] [id number] 12:12:00 Test Item Value Reference Range Interpretation Comments Sodium Lvl (test code = Sodium Lvl) 141 135-145 [facility] [id number] 12:12:00 Test Item Value Reference Range Interpretation Comments Potassium Lvl (test code = Potassium 3.5 3.5-5.1 Lvl) [facility] [id number] 12:12:00 Test Item Value Reference Range Interpretation Comments Chloride Lvl (test code = Chloride Lvl) 101 95-109 [facility]annTRAN[id number] 12:12:00 Test Item Value Reference Range Interpretation Comments CO2 (test code = CO2) 32 24-32 [facility]2022-08-04 12:12:00 Test Item Value Reference Range Interpretation Comments Calcium Lvl (test code = Calcium Lvl) 8.0 8.5-10.5 [facility]2022-08-04 12:12:00 Test Item Value Reference Range Interpretation Comments Total Protein (test code = Total 6.7 6.4-8.4 Protein) [facility]2022-08-04 12:12:00 Test Item Value Reference Range Interpretation Comments Albumin Lvl (test code = Albumin Lvl) 1.9 3.5-5.0 [facility] [place] [id number] 12:12:00 Test Item Value Reference Range Interpretation Comments ALT (test code = ALT) 38 <=65 [facility]2022-08-04 12:12:00 Test Item Value Reference Range Interpretation Comments AST (test code = AST) 46 <=37 [facility] [id number] 12:12:00 Test Item Value Reference Range Interpretation Comments Alk Phos (test code = Alk Phos) 275 39-136 [facility] [place] [id number] 12:12:00 Test Item Value Reference Range Interpretation Comments Bili Total (test code = Bili Total) 0.7 0.2-1.3 [facility]2022-08-04 12:12:00 Test Item Value Reference Range Interpretation Comments AGAP (test code = AGAP) 11.5 10.0-20.0 [facility] [place] [id number] 12:12:00 Test Item Value Reference Range Interpretation Comments B/C Ratio (test code = B/C Ratio) 7 1 6-25 [place] 351432-08-04 12:12:00 Test Item Value Reference Range Interpretation Comments Globulin (test code = Globulin) 4.8 2.7-4.2 [place] 351432-08-04 12:12:00 Test Item Value Reference Range Interpretation Comments A/G Ratio (test code = A/G Ratio) 0.4 1 0.7-1.6 [facility] [place] [id number] 12:12:00 Test Item Value Reference Range Interpretation Comments eGFR (test code = eGFR) 13 [facility]MzpxshgKQYNNANUDE3691-32-39 12:12:00 Test Item Value Reference Range Interpretation Comments WBC (test code = WBC) 29.1 3.7-10.4 [facility] HospitalHughbyzFCEIIXIAHT2126-52-86 12:12:00 Test Item Value Reference Range Interpretation Comments RBC (test code = RBC) 3.26 4.70-6.10 [facility] HospitalXjbnlybZXMMTGMIGQ0265-68-58 12:12:00 Test Item Value Reference Range Interpretation Comments Hgb (test code = Hgb) 9.6 14.0-18.0 [facility] HospitalYiljlxbYTEPQXIAKL1195-67-80 12:12:00 Test Item Value Reference Range Interpretation Comments Hct (test code = Hct) 28.3 42.0-54.0 [facility] HospitalNvzblnvGXZCELQJVE2203-50-18 12:12:00 Test Item Value Reference Range Interpretation Comments MCV (test code = MCV) 86.8 80.0-94.0 [facility] HospitalFdusauuDOXDAJQHZX8691-29-74 12:12:00 Test Item Value Reference Range Interpretation Comments MCH (test code = MCH) 29.5 pg 27.0-31.0 [facility] HospitalZdzypsbEZROLUTFUM0885-00-63 12:12:00 Test Item Value Reference Range Interpretation Comments MCHC (test code = MCHC) 34.0 32.0-36.0 [facility] HospitalHlmyafmLSDWMRPHRL7419-54-66 12:12:00 Test Item Value Reference Range Interpretation Comments RDW (test code = RDW) 16.0 11.5-14.5 [facility] HospitalStfdlkoQTKRRIALBE8621-16-18 12:12:00 Test Item Value Reference Range Interpretation Comments Platelet (test code = Platelet) 402 133-450 [facility] HospitalUqqzqtpVRNGFLOITM9631-37-82 12:12:00 Test Item Value Reference Range Interpretation Comments MPV (test code = MPV) 6.9 7.4-10.4 [facility] HospitalFvnysooTJFOYCOOHO1074-58-61 12:12:00 Test Item Value Reference Range Interpretation Comments Segs (test code = Segs) 84.1 45.0-75.0 [facility] HospitalQwijdxuSLKQXTVSCP3865-67-76 12:12:00 Test Item Value Reference Range Interpretation Comments Lymphocytes (test code = Lymphocytes) 6.4 20.0-40.0 [place] 629532-08-04 12:12:00 Test Item Value Reference Range Interpretation Comments Monocytes (test code = Monocytes) 5.0 2.0-12.0 [place] 629532-08-04 12:12:00 Test Item Value Reference Range Interpretation Comments Eosinophils (test code = Eosinophils) 4.1 <=4.0 [place] 629532-08-04 12:12:00 Test Item Value Reference Range Interpretation Comments Basophils (test code = Basophils) 0.4 <=1.0 [place] 629532-08-04 12:12:00 Test Item Value Reference Range Interpretation Comments Neutrophils # (test code = Neutrophils 24.5 1.5-8.1 #) [place] 629532-08-04 12:12:00 Test Item Value Reference Range Interpretation Comments Lymphocytes # (test code = Lymphocytes 1.9 1.0-5.5 #) [facility] HospitalIzxswivHREFDIXERD5436-27-45 12:12:00 Test Item Value Reference Range Interpretation Comments Monocytes # (test code = Monocytes #) 1.5 <=0.8 [place] 629532-08-04 12:12:00 Test Item Value Reference Range Interpretation Comments Eosinophils # (test code = Eosinophils 1.2 <=0.5 #) [facility] HospitalQufpejpBVQJIWQGAP2826-04-28 12:12:00 Test Item Value Reference Range Interpretation Comments Basophils # (test code = Basophils #) 0.1 <=0.2 [facility]2022-08-04 02:57:00 Test Item Value Reference Range Interpretation Comments Lactic Acid Lvl (test code = Lactic 1.5 0.5-2.2 Acid Lvl) [facility] ODDPJ7775-08-30 01:55:00 Test Item Value Reference Range Interpretation Comments Procalcitonin Lvl (test code = 129.48 <=0.10 Procalcitonin Lvl) [facility] [id number] 00:39:00 Test Item Value Reference Range Interpretation Comments HS Troponin I (test code = HS Troponin 24 I) [facility] KXPEVVY2051-97-21 00:39:00 Test Item Value Reference Range Interpretation Comments BNP (test code = BNP) 182 [facility]2022-08-04 00:39:00 Test Item Value Reference Range Interpretation Comments Total Protein (test code = Total 7.3 6.4-8.4 Protein) [facility]2022-08-04 00:39:00 Test Item Value Reference Range Interpretation Comments Albumin Lvl (test code = Albumin Lvl) 2.1 3.5-5.0 [facility]2022-08-04 00:39:00 Test Item Value Reference Range Interpretation Comments ALT (test code = ALT) 47 <=65 [facility]2022-08-04 00:39:00 Test Item Value Reference Range Interpretation Comments AST (test code = AST) 70 <=37 [place] 351432-08-04 00:39:00 Test Item Value Reference Range Interpretation Comments Alk Phos (test code = Alk Phos) 332 39-136 [facility]2022-08-04 00:39:00 Test Item Value Reference Range Interpretation Comments Bili Total (test code = Bili Total) 0.5 0.2-1.3 [facility]2022-08-04 00:39:00 Test Item Value Reference Range Interpretation Comments B/C Ratio (test code = B/C Ratio) 7 1 6-25 [facility]2022-08-04 00:39:00 Test Item Value Reference Range Interpretation Comments Globulin (test code = Globulin) 5.2 2.7-4.2 [facility]2022-08-04 00:39:00 Test Item Value Reference Range Interpretation Comments A/G Ratio (test code = A/G Ratio) 0.4 1 0.7-1.6 [facility] HospitalLkhksmsHMSLAYSBQW9415-71-48 00:38:00 Test Item Value Reference Range Interpretation Comments Plt Morph (test code = Normal (03/02/22 7:38 PM) Plt Morph) [facility] HospitalOmzitymFMJQJGDUTJ9306-59-01 00:38:00 Test Item Value Reference Range Interpretation Comments Anisocyte (test code = 1+ *ABN*(03/02/22 7:38 Anisocyte) PM) [facility] RockAmmzpuyWGTBQRQBXL0366-12-11 00:38:00 Test Item Value Reference Range Interpretation Comments Coronavirus (COVID-19) Not Detected (03/02/22 JING (test code = 7:38 PM) Coronavirus (COVID-19) JING) [facility] METABOLIC [id number] 12:58:00 Test Item Value Reference Range Interpretation [...] CA) Reference Range Aug 2020 CBC W/AUTO [id number] 12:51:00 Test Item Value Reference Range Interpretation [...] 3/uL 0.0-0.20 N - XR CHEST 1 [id number] 09:23:00 [facility] : 1965 Sex: MPatient Name: RAGINI CARRILLO Unit No: [id number] EXAMS: CPT CODE: [id number] XR CHEST 1 V 08894 Location: A1 EXAM: XR CHEST 1 VIEW INDICATION: PNA COMPARISON: 02/17/2022 TECHNIQUE: AP Chest FINDINGS: Lines, tubes and hardware: Tracheostomy tube tip overlies the mid thoracic trachea. Right-sided CVC tipoverlies the expected location of the inferior SVC. Lungs and pleura: There is unchanged mild nonspec ific elevation of the right hemidiaphragm. There are unchanged mild right basilar opacities. The bilateral costophrenic sulci are sharp. No focal consolidation on the left. No appreciable pneumothorax.Heart/mediastinum: The cardiomediastinal silhouette is mildly enlarged, but stable. Bones/soft tissues: No acute bony abnormality. IMPRESSION: 1. Lines and tubes, as above. 2. Otherwise, no significantinterval change. at 0923 Reported and signed by: JAILENE LONDONO M.D. CC: Daniel Nazario MD Technologist: MERRICK MOE; Joaquin Jugo Fluoro Time: DAP (Gy m2): Air Kerma (mGy): Trscr Dt/Tm: 02/24/2022 (922) by:[email or web address] Printed Date/Time: 02/24/2022 (925) Name: MIGUELRAGINI DAWKINS [facility] Phys: Daniel Barcenas MD [address] : 1965 Age: 56 Sex: [place] [address] Loc: PScottiePSCLIEN Exam Date: 02/24/2022 Status: REG REF PH: FAX: PAGE 1 Signed ReportGlucose [id number] 11:34:00 Test Item Value Reference Range Interpretation Comments Glucose Fingerstick 242 mg/dL 70-115 HEAD [facility]RARIAN Cassendra (test code = WGLUC) [place] BASIC METABOLIC [id number] 08:20:00 Test Item Value Reference Range Interpretation [...] CA) Reference Range Aug 2020 BASIC METABOLIC [id number] 07:18:00 Test Item Value Reference Range Interpretation [...] CA) Reference Range Aug 2020 CBC W/AUTO [id number] 07:11:00 Test Item Value Reference Range Interpretation [...] 0.21 x10 3/uL 0.0-0.20 H BASIC METABOLIC [id number] 11:20:00 Test Item Value Reference Range Interpretation [...] CA) Reference Range Aug 2020 BASIC METABOLIC [id number] 05:16:00 Test Item Value Reference Range Interpretation [...] CA) Reference Range Aug 2020 CBC W/AUTO [id number] 05:16:00 Test Item Value Reference Range Interpretation [...] x10 3/uL 0.0-0.20 N - XR ABDOMEN [id number] 08:25:00 [facility] : 1965 Sex: MPatient Name: RAGINI CARRILLO Unit No: [id number] EXAMS: CPT CODE: [id number] XR ABDOMEN 1V 13381 ABDOMEN, SINGLE VIEW DICTATION LOCATION A1 HISTORY: Abdominal distention. A single view of the abdomen at 7:53 AM was compared to a prior exam from February 16, 2022. FINDINGS: Gastric distention has resolved.Mild nonspecific gas-filled loops of small and large bowel are stable. No new findings are seen. IMPRESSION: Interval resolution of the gastric distention. Possible minimal ileus but no other obvious acute findings. at 0825 Reported and signed by: Alfredo Benjamin Jr, MD CC: Daniel Nazario MD Technologist: MERRICK MOE; Jenaro, Prestly RT (R), (CT) Fluoro Time: DAP (Gy m2): Air Kerma (mGy): Trscr Dt/Tm: 02/17/2022 (0825)by:Fish Printed Date/Time: 02/17/2022 (0829) Name: RAGINI CARRILLO [facility] Phys: Daniel Barcenas MD [address] : 1965 Age: 56 Sex: [place] [address] Loc: YokastaRAJANLIEN Exam Date: 02/17/2022 Status: REG REF PH: FAX: PAGE 1 Signed Report- XR CHEST 1 [id number] 08:24:00 [facility] : 1965 Sex: MPatient Name: RAGINI CARRILLO Unit No: [id number] EXAMS: CPT CODE: [id number] XR CHEST 1 V 96523 CHEST, SINGLE VIEW DICTATION LOCATION A1 HISTORY: [...] m2): Air Kerma (mGy): Trscr Dt/Tm: 02/17/2022 (08) by:Fish Printed Date/Time: 02/17/2022 (7774) Name: RAGINI CARRILLO [facility] Phys: Daniel Barcenas MD [address] : 1965 Age: 56 Sex: [place] [address] Loc: YovaniPSCJ LUISEN Exam Date: 02/17/2022 Status: REG REF PH: FAX: PAGE 1 Signed ReportBASIC METABOLIC [id number] 05:21:00 Test Item Value Reference Range Interpretation [...] CA) Reference Range Aug 2020 BASIC METABOLIC [id number] 23:49:00 Test Item Value Reference Range Interpretation [...] Value GLU) reported toFirs t Name:STAR Last Name:LYLECINTHYA EUCEDA READ BACK AND VERIFIEDby LESLYE DEL REAL, on 02/16/22, @ 3605.Please not e: New Reference Range Aug 2020 [...] Reference Range Aug 2020 - XR ABDOMEN [id number] 13:53:00 [facility] : 1965 Sex: MPatient Name: RAGINI CARRILLO Unit No: [id number] EXAMS: CPT CODE: [id number] XR ABDOMEN 1V 29777 Location: C3 EXAM: - XR ABDOMEN 1V INDICATION: n/v COMPARISON: Abdominal radiograph dated 02/02/2022. Chestradiograph dated 02/14/2022. TECHNIQUE: AP view of the [...] Nazario MD; Isaías Hernandez DO Technologist: Joaquin Jugo Fluoro Time: DAP (Gy m2): Air Kerma (mGy): Trscr Dt/Tm: 02/16/2022 (1353)by:[email or web address] Printed Date/Time: 02/16/2022 (6038) Name: RAGINI CARRILLO [facility] Phys: Isaías Glynn DO [address] : 1965 Age: 56 Sex: [place] [address] Loc: PScottiePSCLIEN Exam Date: 02/16/2022 Status: REG REF PH: FAX: PAGE 1 Signed ReportBASIC METABOLIC [id number] 01:57:00 Test Item Value Reference Range Interpretation [...] CA) Reference Range Aug 2020 CBC W/AUTO [id number] 01:42:00 Test Item Value Reference Range Interpretation [...] 3/uL 0.0-0.20 N - XR CHEST 1 [id number] 08:00:00 [facility] : 1965 Sex: MPatient Name: RAGINI CARRILLO Unit No: [id number] EXAMS: CPT CODE: [id number] XR CHEST 1 V 53306 EXAM:XR Chest 1 View INDICATION: respiratory failure LOCATION CODE: A1 COMPARISON: Chest radiograph date02/11/2022 TECHNIQUE: Frontal view of the chest was obtained. FINDINGS: Life support lines and tubes are in unchanged placement. Bibasilar airspace opacities are similar to prior. There is no pleural effusion or pneumothorax. The cardiomediastinal silhouette is unchanged. No acute osseous abnormality is identified. IMPRESSION: No significant change from prior. at 0800 Reported and signed by: VICKIE PALACIOS M.D. CC: Daniel Nazario MD; Yang Karimi Technologist: Haritha Eason RT (R), (CT) Fluoro Time: DAP (Gy m2): Air Kerma (mGy): Trscr Dt/Tm: 02/14/2022 (0800) by:[email or web address] Printed Date/Time: 02/14/2022 (0803) Name: RAGINI CARRILLO [facility] Phys: Yang Ash [address] : 1965 Age: 56 Sex: [place] [address] Loc: P.PSCLIEN Exam Date: 02/14/2022 Status: REG REF PH: FAX: PAGE 1 Signed ReportBASIC METABOLIC [id number] 05:30:00 Test Item Value Reference Range Interpretation [...] CA) Reference Range Aug 2020 CBC W/AUTO [id number] 05:19:00 Test Item Value Reference Range Interpretation [...] = BA#) 0.12 x10 3/uL 0.0-0.20 N [id number] 15:45:00 Test Item Value Reference Range Interpretation Comments GLUCOSE (test code = 424 mg/dL 74-106 HH Critica l Value reported GLU) toFirst Name:RASHEED HARDY Last Name:JANIYA COBURN READ BACK AND VERIFIEDby LESLYE VIERA, on 02/12/22, @ 154 5.Please note: New Refer ence Range Aug 2020 CBC W/AUTO [id number] 05:08:00 Test Item Value Reference Range Interpretation [...] 3/uL 0.0-0.20 N - XR CHEST 1 [id number] 14:08:00 [facility] : 1965 Sex: MPatient Name: RAGINI CARRILLO Unit No: [id number] EXAMS: CPT CODE: [id number] XR CHEST 1 V 82397 Chest one view portable 02/11/2022 2:07 PM CLINICAL INDICATION: Tracheostomy exchange COMPARISON: The previous day LOCATION: W1 IMPRESSION: Support catheters are in satisfactory radiographic position. Bibasilar opacities may reflect atelectasis or pneumonia. Cardiomediastinal contours are within normal limits. The central pulmonary vasculature is not engorged. at 1408 Reported and signed by: PAU WOODARD M.D. CC: Daniel Nazario MD Technologist: Eidth [place] RT (R) Fluoro Time: DAP (Gy m2): Air Kerma (mGy): Trscr Dt/Tm: 02/11/2022 (1408) by:[email or web address] Printed Date/Time: 02/11/2022 (9928) Name: MIGUELRAGINI DAWKINS [facility] Phys: Daniel Barcenas MD [address] : 1965 Age: 56 Sex: [place] [address] Loc: BHAVIK Exam Date: 02/11/2022 Status: REG REF PH: FAX: PAGE 1 Signed ReportBASIC METABOLIC [id number] 05:27:00 Test Item Value Reference Range Interpretation [...] CA) Reference Range Aug 2020 CBC W/AUTO [id number] 05:14:00 Test Item Value Reference Range Interpretation [...] 3/uL 0.0-0.20 N - XR CHEST 1 [id number] 09:02:00 [facility] : 1965 Sex: MPatient Name: RAGINI CARRILLO Unit No: [id number] EXAMS: CPT CODE: [id number] XR CHEST 1 V 42365 Chestone view AP 02/10/2022 9:02 AM CLINICAL [...] [facility] Phys: Isaías Glynn DO [address] : 1965 Age: 56 Sex: [place] [address] Loc: BHAVIK Exam Date: 02/10/2022 Status: REG REF PH: FAX: PAGE 1 Signed ReportBASIC METABOLIC [id number] 04:58:00 Test Item Value Reference Range Interpretation [...] CA) Reference Range Aug 2020 CBC W/AUTO [id number] 04:45:00 Test Item Value Reference Range Interpretation [...] 0.0-0.20 N UA RFLX MICR CULT IF [id number] 19:42:00 Test Item Value Reference Range Interpretation [...] srcSpecimen Description: CATHETERIZED (STRAIGHT)- XR CHEST 1 [id number] 09:35:00 [facility] : 1965 Sex: MPatient Name: RAGINI CARRILLO Unit No: [id number] EXAMS: CPT CODE: [id number] XR CHEST 1 V 04611 EXAM: Chest one view. Location: H24 HISTORY: PNA COMPARISON: [...] M.D. CC: Daniel Nazario MD Technologist: Santosh Orozco Time: DAP (Gy m2): Air Kerma (mGy): Trscr Dt/Tm: 02/07/2022 (0935) by:[email or web address] Printed Date/Time: 02/07/2022 (0938) Name: RAGINI CARRILLO [facility] Phys: Daniel Barcenas MD [address] : 1965 Age: 56 Sex: [place] [address] Loc: P.PSCLIEN Exam Date: 02/07/2022 Status: REG REF PH: FAX: PAGE 1 Signed ReportBASIC METABOLIC [id number] 08:07:00 Test Item Value Reference Range Interpretation [...] CA) Reference Range Aug 2020 CBC W/AUTO [id number] 07:36:00 Test Item Value Reference Range Interpretation [...] 0.07 x10 3/uL 0.0-0.20 N BASIC METABOLIC [id number] 05:14:00 Test Item Value Reference Range Interpretation [...] note: New CA) Reference Range Aug 2020 [id number] 05:14:00 Test Item Value Reference Range Interpretation Comments MAGNESIUM (test code = 2.1 mg/dL 1.6-2.6 N Pleas e note: New MAG) Reference Range Aug 2020 T3 [id number] 05:14:00 Test Item Value Reference Range Interpretation Comments T3 FREE (test code 2.05 pg/mL 3.0-4.7 L Please no te: New = T3F) Reference Range Aug 2020 T4 [id number] 05:14:00 Test Item Value Reference Range Interpretation Comments T4 FREE (test code 0.86 ng/dL 0.89-1.76 L Please no te: New = T4F) Reference Range Aug 2020 CBC W/AUTO [id number] 05:02:00 Test Item Value Reference Range Interpretation [...] 0.06 x10 3/uL 0.0-0.20 N BASIC METABOLIC [id number] 06:00:00 Test Item Value Reference Range Interpretation [...] CA) Reference Range Aug 2020 CBC W/AUTO [id number] 05:50:00 Test Item Value Reference Range Interpretation [...] BA#) 0.04 x10 3/uL 0.0-0.20 N LACTIC [id number] 09:19:00 Test Item Value Reference Range Interpretation Comments LACTIC ACID (test code = LACT) 1.00 mmol/L 0.5-2.0 N THYROID STIMULATING [id number] 11:55:00 Test Item Value Reference Range Interpretation Comments THYROID STIMULATING 4.97 mIU/mL 0.55-4.78 H Please n ote: New HORMONE (test code = Referen ce Range Aug TSH) 2020 BASIC METABOLIC [id number] 07:32:00 Test Item Value Reference Range Interpretation [...] CA) Reference Range Aug 2020 CBC W/AUTO [id number] 07:22:00 Test Item Value Reference Range Interpretation [...] 3/uL 0.0-0.20 N - CT ABD PELVIS [id number] 16:33:00 [facility] : 1965 Sex: MPatient Name: RAGINI CARRILLO Unit No: [id number] EXAMS: CPT CODE: [id number] CT ABD PELVIS W/CONT 76443 Exam: 1. CT angiogram chest with contrast [...] limits the sensitivity of interpretation. No definite fi lling defects are identified within the pulmonary trunk, main or central segmental pulmonary arteries. No definite filling defects are seen within subsegmental branches. Thoracic aorta: Thoracic aorta is mildly elongated. No aneurysmal dilatation or dissection. Heart: Heart is mildly enlarged. No peric ardial effusion. Mediastinum: Scattered lymph nodes are identified within the mediastinum which are nonpathologic by imaging criteria. Lungs: Confluent airspace densities are present within the right lower lobe with volume loss. There are also [...] [place] : 1965 Age: 56 Sex: M [place] [id number] Loc: P.PSCLI Exam Date: 02/02/2022 Status: REG REF PH: FAX: PAGE 1 Signed Report (CONTINUED) Patient Name: RAGINI CARRILLO Unit No: [id number] EXAMS: CPT CODE: [id number] CT ABD PELVIS W/CONT 09770 <Continued> FINDINGS: Abdomen Hepatobiliary: There is fatty infiltration of liver. No discrete intrahepatic lesions are seen. Nobiliary ductal dilatation. Gallbladder: Gallstone is present within gallbladder lumen. Spleen: No vis ualized abnormality. Pancreas: No visualized abnormality. Adrenals: No visualized abnormality. Kidneys: No visualized abnormality. No hydronephrosis or hydroureter. Bowel: Gastrostomy tube is seen within the gastric body. There is fluid and air distending small and large bowel loops followed to levelof the rectum. No wall thickening. No obstruction. Appendix is not visualized. Vessels: No visualized abnormality. Lymph nodes: No lymphadenopathy Peritoneum/retroperitoneum: No intraabdominal free airor free fluid. FINDINGS: Pelvis Pelvic organs/bladder: Urinary bladder is mildly distended. There is thickening of the bladder wall which may indicate infectious/inflammatory etiology. There is trace free pelvic fluid. Findings are uncertain significance. Lymph nodes: No pelvic or inguinal adenopathy.Bones/soft tissues: Spondylosis is noted in the lower [...] Name: RAGINI CARRILLO [facility] Phys:Isaías Glynn DO [address] : 1965 Age: 56 Sex: [place] [address] Loc: P.KELLIE Exam Date: 02/02/2022 Status: REG REF PH: FAX: PAGE 2 Signed Report (CONTINUED) Patient Name: RAGINI CARRILLO Unit No: [id number] EXAMS: CPT CODE: [id number] CT ABD PELVIS W/CONT 04666 <Continued> atelectasis versus pneumonitis in the left lower lobe. 3. Cardiomegaly. 4.Cholelithiasis without further CT evidence for acute cholecystitis. 5. Hepatic steatosis. 6. Abnormal mural thickening of the urinary bladder wall which may indicate infectious/inflammatory etiology. 7. Small free pelvic fluid which may relate to inflammatory changes of bladder. 8. Fluid and gas filled small and large bowel loops may indicate ileus or further infectious/inflammatory etiology. No obstruction. at 1633 Reported and signed by:TIFFANY LANGE M.D. CC: Daniel Nazario MD; Isaías Hernandez DO Technologist: Jacinto Hahn CTDI: DLP: Trscr Dt/Tm: 02/02/2022 (066) by:[email or web address] Printed Date/Time: 02/02/2022 (910) Name: RAGINI CARRILLO [facility] Phys: Isaías Glynn DO [address] : 1965 Age: 56 Sex: [place] [address] Loc: P.PSCLIEN Exam Date: 02/02/2022 Status: REG REF PH: FAX: PAGE 3 Signed Report- CTA CHEST FOR [id number] 16:33:00 [facility] : 1965 Sex: MPatient Name: RAGINI CARRILLO Unit No: [id number] EXAMS: CPT CODE: [id number] [place] [address] Exam: 1. CT angiogram chest with contrast [...] [place] : 1965 Age: 56 Sex: [place] [address] Loc: P.PSCLIEN Exam Date: 02/02/2022tatus: REG REF PH: FAX: PAGE 1 Signed Report (CONTINUED) Patient Name: RAGINI CARRILLO Unit No: [id number] EXAMS: CPT CODE: [id number] [place] [address] <Continued> FINDINGS: Abdomen Hepatobiliary: There is fatty infiltration of liver. No discrete intrahepatic lesions are seen. No biliary ductal dilatation. Gallbladder: Gallstone is present within gallbladder lumen. Spleen: No visualized a bnormality. Pancreas: No visualized abnormality. Adrenals: No visualized [...] Urinary bladder is mildly distended. There is thickening of the bladder wall which may [...] lower lobe bronchi which may represent aspiration pneumoni a/postobstructive pneumonitis. There is also Name: RAGINI CARRILLO [facility] Phys: Isaías Glynn DO [address] : 1965 Age: 56 Sex: [place] [address] Loc: P.PSCLIEN Exam Date: 02/02/2022 Status: REG REF PH: FAX: PAGE 2 Signed Report (CONTINUED) Patient Name: RAGINI CARRILLO Unit No: [id number] EXAMS: CPT CODE: [id number] [place] [address] <Continued> atelectasis versus pneumonitis in the left [...] Nazario MD; Isaías Hernandez DO Technologist: Jacinto Cuba Chuyita Hahn CTDI: 73.85 DLP: 1918 Trscr Dt/Tm: 02/02/2022 (943) by:[email or web address] Printed Date/Time: 02/02/2022 (2296) Name: RAGINI CARRILLO [facility] Phys: Isaías Glynn DO [address] : 1965 Age: 56 Sex: [place] [address] Loc: BHAVIK Exam Date: 02/02/2022 Status: REG REF PH: FAX: PAGE 3 Signed [id number] 13:33:00 Test Item Value Reference Range Interpretation Comments TROPONIN-I (test 13.0 pg/mL 38.73-80.22 L Please note : Units and code = TROPI) Reference Rang e have changedFeb 3, 2 021 B-TYPE NATRIURETIC [id number] 13:33:00 Test Item Value Reference Range Interpretation Comments B-TYPE NATRIURETIC PEPTIDE (test 56 pg/mL <100 N code = BNP) - XR CHEST 1 [id number] 12:49:00 [facility] : 1965 Sex: MPatient Name: RAGINI CARRILLO Unit No: [id number] EXAMS: CPT CODE: [id number] XR CHEST 1 V 09839 Chest one view AP and abdomen 1 view supine 02/02/2022 CLINICAL HISTORY: Respiratory failure, small bowel obstruction COMPARISON: 01/31/2022 LOCATION: W1 IMPRESSION: Cardiomediastinal contours are stable. The central pulmonary vasculature is not engorged. Bibasilar opacities suggest atelectasis. Pneumonia shouldbe excluded clinically. Support catheters are in satisfactory radiographic position. There is no radiographic evidence for bowel obstruction. There is mild ileus. Percutaneous gastrostomy catheter is present. There are no acute- appearing skeletal abnormalities. at 1247 Reported and signed by: PAU WOODARD M.D. CC: Daniel Nazario MD Technologist: Joaquin Knight Fluoro Time: DAP (Gy m2): Air Kerma (mGy): Trscr Dt/Tm: 02/02/2022(2665) by:[email or web address] Printed Date/Time: 02/02/2022 (7395) Name: MIGUELRAGINI DAWKINS [facility] Phys: Daniel Barcenas MD [address] : 1965 Age: 56 Sex: [place] [address] Loc: YokastaScottiePSCLIEN Exam Date: 02/02/2022 Status: REG REF PH: FAX: PAGE 1 Signed Report- XR ABDOMEN [id number] 12:49:00 [facility] : 1965 Sex: MPatient Name: RAGINI CARRILLO Unit No: [id number] EXAMS: CPT CODE: [id number] XR ABDOMEN 1V 70138 Chest one view AP and abdomen 1 [...] PAU WOODARD M.D. CC: Daniel Nazario MD; Darryl Chavis Jr, MD Technologist: Joaquin Jugo Fluoro Time: DAP (Gy m2): Air Kerma (mGy): Trscr Dt/Tm: 02/02/2022 (4780) by:[email or web address] Printed Date/Time: 02/02/2022 (0780) Name: MIGUELRAGINI [facility] Phys: Darryl Downs Jr, MD [address] : 1965 Age: 56 Sex: [place] [address] [id number] Loc: BHAVIK Exam Date: 02/02/2022 Status: REG REF PH: FAX: PAGE 1 Signed ReportBASIC METABOLIC [id number] 07:53:00 Test Item Value Reference Range Interpretation [...] CA) Reference Range Aug 2020 COMPREHENSIVE METABOLIC [id number] 07:53:00 Test Item Value Reference Range Interpretation [...] ALKP) Reference Range Aug 2020 CBC W/AUTO [id number] 07:41:00 Test Item Value Reference Range Interpretation [...] 0.09 x10 3/uL 0.0-0.20 N CBC W/AUTO [id number] 07:21:00 Test Item Value Reference Range Interpretation [...] x10 3/uL 0.0-0.20 N - XR ABDOMEN [id number] 12:31:00 [facility] : 1965 Sex: MPatient Name: RAGINI CARRILLO Unit No: [id number] EXAMS: CPT CODE: [id number] XR ABDOMEN 1V 00041 C3 TIME OF STUDY: 01/31/2022 11:08 AM [...] SANTANA M.D. CC: Daniel Nazario MD Technologist: Sahree Schaefer Fluoro Time: DAP (Gy m2): Air Kerma (mGy): Trscr Dt/Tm: 01/31/2022 (1231) by:[email or web address] Printed Date/Time: 01/31/2022 (1234) Name: RAGINI CARRILLO [facility] Phys: Daniel Barcenas MD [address] : 1965 Age: 56 Sex: M [place], [address] No: [id number] Loc: BHAVIK Exam Date: 01/31/2022 Status: REG REF PH: FAX: PAGE 1 Signed ReportCBC W/AUTO [id number] 07:24:00 Test Item Value Reference Range Interpretation [...] 3/uL 0.0-0.20 N - XR CHEST 1 [id number] 09:00:00 [facility] : 1965 Sex: MPatient Name: RAGINI CARRILLO Unit No: [id number] EXAMS: CPT CODE: [id number] XR CHEST 1 V 58548 Portable AP chest, 1 view Location Code: [...] Hernandez DO Technologist: Tosha Mars; Ana María Orozco Time: DAP (Gy m2): AirKerma (mGy): Trscr Dt/Tm: 01/30/2022 (0900) by:Kristie Printed Date/Time: 01/30/2022 (0903) Name:RAGINI CARRILLO [facility] Phys: Isaías Glynn DO [address] : 1965 Age: 56 Sex: [place] [address] Loc: YovaniPSCLIEN Exam Date: 01/30/2022 Status: REG REF PH: FAX: PAGE 1 Signed ReportBASIC METABOLIC [id number] 07:06:00 Test Item Value Reference Range Interpretation [...] CA) Reference Range Aug 2020 CBC W/AUTO [id number] 05:08:00 Test Item Value Reference Range Interpretation [...] 0.12 x10 3/uL 0.0-0.20 N CBC W/AUTO [id number] 04:38:00 Test Item Value Reference Range Interpretation Comments WHITE BLOOD CELL (test 12.9 x10 3/uL 4.8-10.8 H code = WBC) RED BLOOD CELL (test 2.30 x10 6/uL 4.70-6.10 L code = RBC) HEMOGLOBIN (test code 6.6 g/dL 14.0-18.0 LL Critic al Value = HGB) reported toFirs t Name:COREY interiano Name:LACEY CALVIN TS READ BACK AN D [employer] PBABYBOOM.[email or web address], on 01/29/22, @ 043 8. HEMATOCRIT (test [...] 3/uL 0.0-0.20 N = BA#) BASIC METABOLIC [id number] 05:27:00 Test Item Value Reference Range Interpretation [...] CA) Reference Range Aug 2020 CBC W/AUTO [id number] 05:00:00 Test Item Value Reference Range Interpretation [...] 3/uL 0.0-0.20 N - CT HEAD/BRAIN W/O [id number] 14:35:00 [facility] : 1965 Sex: MPatient Name: RAGINI CARRILLO Unit No: [id number] EXAMS: CPT CODE: [id number] CT HEAD/BRAIN W/O CONT 56919 CT head without contrast 01/27/2022 CLINICAL HISTORY: [...] is generalized parenchymal volume loss. There is bilateralmaxillary sinusitis. There are bilateral mastoid effusions. The [...] Dt/Tm: 01/27/2022 (1435) by:[email or web address] Printed Date/Time: 01/27/2022 (0595) Name: RAGINI CARRILLO [facility] Phys: Daniel Barcenas MD [address] : 1965 Age: 56 Sex: [place] [address] Loc: P.PSCLIEN Exam Date: 01/27/2022 Status: REG REF PH: [...] ALKP) Reference Range Aug 2020 CBC W/AUTO [id number] 04:44:00 Test Item Value Reference Range Interpretation [...] 0.10 x10 3/uL 0.0-0.20 N CBC W/AUTO [id number] 22:52:00 Test Item Value Reference Range Interpretation [...] 0.08 x10 3/uL 0.0-0.20 N ACUTE HEPATITIS [id number] 17:26:00 Test Item Value Reference Range Interpretation Comments AB HEPATITIS A IGM (test code = Nonreactive Nonreactive HAVMAB) AG HEPATITIS B SURFACE (test code Nonreactive Nonreactive = HBSAG) AB HEPATITIS B CORE IGM (test Nonreactive Nonreactive code = HBCMAB) AB HEPATITIS C (test code = Nonreactive Nonreactive HCVAB) - CTA ABD PEL W [id number] 17:07:00 [facility] : 1965 Sex: MPatient Name: RAGINI CARRILLO Unit No: [id number] EXAMS: CPT CODE: [id number] CTA ABD PEL W CONT 26256 Indication: hemothorax TECHNIQUE: CT of the chest, abdomen and pelvis is obtained with intravenous contrast using the angiography protocol. Approximately 100 mL of Isovue was administered. No oral contrast was administered. Sagittal and coronal reconstruction images were obtained. MIPS reconstructions and 3-D reconstructions were viewed on the workstation. COMPARISON: None. LOCATION: A1 CT Dose: 1087 mGy-centimeters; One or more of the following dose reduction techniques were used: Automated exposurecontrol, adjustment of the mA and/or kV according [...] is unremarkable. There is no evidence of anaortic aneurysm. No aortic dissection is identified. The pulmonary arteries are unremarkable. No pulmonary emboli are identified. The thoracic bony structures are unremarkable. ABDOMEN AND PELVIS: The abdominal aorta appears normal in caliber. There is no evidence of aneurysm or dissection. The visceral branches of the abdominal aorta including the SMA, bilateral renal arteries and CLARENCE appear to be widely patent. A short segment narrowing of the celiac trunk, likely due to arcuate ligament. There ispostoperative dilation. The bilateral common iliac, external iliac and internal iliac arteries are patent. Name: RAGINI CARRILLO [facility] Phys: Daniel Barcenas MD [address] : 1965 Age: 56 Sex: [place] [address] Loc: BHAVIK Exam Date: 01/26/2022 Status: REG REF PH: FAX: PAGE 1 Signed Report (CONTINUED) Patient Name: RAGINI CARRILLO Unit No: [id number] EXAMS: CPT CODE: [id number] CTA ABD PEL W CONT 04275 <Continued> There are normal hepatic size, contour [...] and spondylosis are present at the lumbosacral junction.IMPRESSION: 1. No evidence of PE. 2. No [...] Jacinto Graham CTDI: DLP: Trscr Dt/Tm: 01/26/2022 (6020) by:[email or web address] Printed Date/Time: 01/26/2022 (0073) [facility]: Daniel Barcenas MD [address] : 1965 Age: 56 Sex: [place] [address] Loc: YokastaScottiePSCLIEN Exam Date: 01/26/2022 Status: REG REF PH: FAX: PAGE 2 Signed Report- CT ANGIO [id number] 17:07:00 [facility] : 1965 Sex: MPatient Name: RAGINI CARRILLO Unit No: [id number] EXAMS: CPT CODE: [id number] CT ANGIO CHEST 71361 Indication: hemothorax TECHNIQUE: CT of the chest, [...] identified. The pulmonary arteries are unremarkable. No pulmonaryemboli are identified. The thoracic bony structures are [...] [address] : 1965 Age: 56 Sex: [place] [address] Loc: P.PSCLIEN Exam Date: 01/26/2022 Status: REG REF PH: FAX: PAGE 1 Signed Report (CONTINUED) Patient Name: RAGINI CARRILLO Unit No: [id number] EXAMS: CPT CODE: [id number] CT ANGIO CHEST 87811 <Continued> There are normal hepatic size, contour [...] place. The visualized bowel is intact. There isno bowel wall thickening. No bowel mass is identified. No bowel obstruction is identified. The abdominal wall and the inguinal regions are unremarkable. No free air is identified. There is no evidence of ascites. Degenerative disease and spondylosis are present at the lumbosacral junction. IMPRESSION:1. No evidence of PE. 2. No evidence [...] CTDI: 47.69 DLP: 1087.12Trscr Dt/Tm: 01/26/2022 (1707) by:[email or web address] Printed Date/Time: 01/26/2022 (1711) Name: MIGUELRAGINI [facility] Phys: Daniel Barcenas MD [address] : 1965 Age: 56 Sex: [place] [address] Loc: YovaniPSCLIEN Exam Date: 01/26/2022 Status: REG REF PH: FAX: PAGE 2 Signed ReportBASIC METABOLIC [id number] 07:21:00 Test Item Value Reference Range Interpretation [...] note: New CA) Reference Range Aug 2020 [id number] 07:21:00 Test Item Value Reference Range Interpretation Comments MAGNESIUM (test code = 2.2 mg/dL 1.6-2.6 N Pleas e note: New MAG) Reference Range Aug 2020 CBC W/AUTO [id number] 07:08:00 Test Item Value Reference Range Interpretation Comments WHITE BLOOD CELL (test 10.8 x10 3/uL 4.8-10.8 N code = WBC) RED BLOOD CELL (test 2.53 x10 6/uL 4.70-6.10 L code = RBC) HEMOGLOBIN (test code 7.0 g/dL 14.0-18.0 L Critic al Value = HGB) reported toFirs t Name:SONAM Last Name:MARI ALICIA LTS READ BACK A ND VERIFIEDby [id number], on 01/26/22, @ 065 7. HEMATOCRIT (test [...] N = BA#) - XR CHEST 1 [id number] 10:01:00 [facility] : 1965 Sex: MPatient Name: RAGINI CARRILLO Unit No: [id number] EXAMS: CPT CODE: [id number] XR CHEST 1 V 92317 Chestone view AP 01/25/2022 10:00 AM CLINICAL INDICATION: Pneumonia COMPARISON: None available LOCATION: W1 IMPRESSION: Right lung base opacity is concerning for pneumonia. Left lung base opacity suggests atelectasis. Cardiomediastinal contours are within normal limits. The central pulmonary vasculature isnot engorged. Support hardware is in satisfactory radiographic position. at 1001 Reported and signed by: PAU WOODARD M.D. CC: Daniel Nazario MD Technologist: Ganga Orozco Time: DAP (Gy m2): Air Kerma (mGy): Trscr Dt/Tm: 01/25/2022 (1001) by:[email or web address] Printed Date/Time: 01/25/2022 (1004) Name: RAGINI CARRILLO [facility] Phys: Daniel Barcenas MD [address] : 1965 Age: 56 Sex: [place] [address] [facility] [address] Exam Date: 01/25/2022 Status: REG REF PH: FAX: PAGE 1Signed ReportCBC W/AUTO [id number] 07:02:00 Test Item Value Reference Range Interpretation Comments WHITE BLOOD CELL (test 11.7 x10 3/uL 4.8-10.8 H code = WBC) RED BLOOD CELL (test 2.49 x10 6/uL 4.70-6.10 L code = RBC) HEMOGLOBIN (test code 6.9 g/dL 14.0-18.0 LL Critic al Value = HGB) reported [facility] Name:BARBARA Last Name:[facility] READ BACK AND VERIFIEDby [id number], on 01/25/22, @ 06 9. HEMATOCRIT (test code 21.4 % 42.0-52.0 [...] x10 3/uL 0.0-0.20 N = BA#) PROTHROMBIN [id number] 06:59:00 Test Item Value Reference Range Interpretation [...] t valves; 2.5-3.5recurren t systemic emboli sm. [id number] 06:40:00 Test Item Value Reference Range Interpretation Comments PHOSPHOROUS (test code 5.6 mg/dL 2.4-5.1 H Pleas e note: New = PHOS) Reference Range Aug 2020 Spec Comments: AT START OF [id number] 06:40:00 Test Item Value Reference Range Interpretation Comments MAGNESIUM (test code = 1.9 mg/dL 1.6-2.6 N Nisa bose note: New MAG) Reference Range Aug 2020 Spec Comments: AT START OF HEMODIALYSISTHYROID STIMULATING [id number] 06:40:00 Test Item Value Reference Range Interpretation Comments THYROID STIMULATING 3.05 mIU/mL 0.55-4.78 N Please n ote: New HORMONE (test code = Referen ce Range Aug TSH) 2020 Spec Comments: AT START OF HEMODIALYSISCOMPREHENSIVE METABOLIC [id number] 06:40:00 Test Item Value Reference Range Interpretation [...] AVG 11.04~~~~~~~~~~ ~~~~~~~ ~~~~~~~~~~~~~~~ ~~~~~~~ ~~~~~~~~~~~~~~~ ~~~~~~N [facility] ray Education (OHEP ) Guidelines:~~~~ ~~~~~~~ ~~~~~~~~~~~~~~~ ~~~~~~~ ~~~~~~~~~~~~~~~ ~~~~~~~ ~~~~~ HDL Cholesterol<4 0mg/dL: HDL Cholesterol (Major risk factor for CHD)>60mg/dL: H DL Cholesterol (Ne gative risk factor for CHD)40-59mg/dL: Borderline Risk LDL Cholesterol<1 00mg/dL : Desirable LDL -C gidyqxdinvsyv69 0-159mg /dL: Borderline High Risk LDL-C cvnfgaufvnpdc38 0-189mg /dL: High risk LDL-C concentration H DL-LDL Cholesterol is affected by a n umber of factors such as smoking, age an d sex.~~~~~~~~~~~ ~~~~~~~ ~~~~~~~~~~~~~~~ ~~~~~~~ ~~~~~~~~~~~~~~~ ~~~~~ Spec Comments: AT START OF HEMODIALYSISTRANSYLVANIA REGIONAL [id number] 04:46:00 Test Item Value Reference Range Interpretation Comments Glucose Lvl (test code = Glucose Lvl) 221 70-99 [place] 351432-06-27 04:46:00 Test Item Value Reference Range Interpretation Comments BUN (test code = BUN) 118 7-22 [place] 351432-06-27 04:46:00 Test Item Value Reference Range Interpretation Comments Creatinine Lvl (test code = Creatinine 6.97 0.50-1.40 Lvl) [place] 351432-06-27 04:46:00 Test Item Value Reference Range Interpretation Comments Sodium Lvl (test code = Sodium Lvl) 131 135-145 [place] 351432-06-27 04:46:00 Test Item Value Reference Range Interpretation Comments Potassium Lvl (test code = Potassium 4.7 3.5-5.1 Lvl) [place] 351432-06-27 04:46:00 Test Item Value Reference Range Interpretation Comments Chloride Lvl (test code = Chloride Lvl) 98 95-109 [place] 351432-06-27 04:46:00 Test Item Value Reference Range Interpretation Comments CO2 (test code = CO2) 19 24-32 [place] 351432-06-27 04:46:00 Test Item Value Reference Range Interpretation Comments AGAP (test code = AGAP) 18.7 10.0-20.0 [place] 351432-06-27 04:46:00 Test Item Value Reference Range Interpretation Comments Calcium Lvl (test code = Calcium Lvl) 9.0 8.5-10.5 [place] 351432-06-27 04:46:00 Test Item Value Reference Range Interpretation Comments eGFR (test code = eGFR) 8 [place] 351432-06-27 04:46:00 Test Item Value Reference Range Interpretation Comments Magnesium Lvl (test code = Magnesium 2.4 1.8-2.4 Lvl) [place] 351432-06-27 04:46:00 Test Item Value Reference Range Interpretation Comments Phosphorus (test code = Phosphorus) 6.2 2.5-4.5 [place] 629532-06-27 04:46:00 Test Item Value Reference Range Interpretation Comments Segs (test code = Segs) 66.8 45.0-75.0 [place] 629532-06-27 04:46:00 Test Item Value Reference Range Interpretation Comments Lymphocytes (test code = Lymphocytes) 20.0 20.0-40.0 [place] [address]-06-27 04:46:00 Test Item Value Reference Range Interpretation Comments Monocytes (test code = Monocytes) 8.0 2.0-12.0 [place] [address]-06-27 04:46:00 Test Item Value Reference Range Interpretation Comments Eosinophils (test code = Eosinophils) 4.4 <=4.0 [place] 629532-06-27 04:46:00 Test Item Value Reference Range Interpretation Comments Basophils (test code = Basophils) 0.8 <=1.0 [place] [address]-06-27 04:46:00 Test Item Value Reference Range Interpretation Comments Neutrophils # (test code = Neutrophils 7.9 1.5-8.1 #) [place] 629532-06-27 04:46:00 Test Item Value Reference Range Interpretation Comments Lymphocytes # (test code = Lymphocytes 2.4 1.0-5.5 #) [place] 629532-06-27 04:46:00 Test Item Value Reference Range Interpretation Comments Monocytes # (test code = Monocytes #) 0.9 <=0.8 [place] 629532-06-27 04:46:00 Test Item Value Reference Range Interpretation Comments Eosinophils # (test code = Eosinophils 0.5 <=0.5 #) [id number] 04:46:00 Test Item Value Reference Range Interpretation Comments Basophils # (test code = Basophils #) 0.1 <=0.2 [place] 629532-06-27 04:46:00 Test Item Value Reference Range Interpretation Comments WBC (test code = WBC) 11.8 3.7-10.4 [place] 629532-06-27 04:46:00 Test Item Value Reference Range Interpretation Comments RBC (test code = RBC) 2.52 4.70-6.10 [place] 629532-06-27 04:46:00 Test Item Value Reference Range Interpretation Comments Hgb (test code = Hgb) 7.2 14.0-18.0 [facility] HospitalLhwmxxmLATGILRNAI2146-41-59 04:46:00 Test Item Value Reference Range Interpretation Comments Hct (test code = Hct) 21.5 42.0-54.0 [facility] HospitalEmntfdwKUCDUUJQFK5759-50-30 04:46:00 Test Item Value Reference Range Interpretation Comments MCV (test code = MCV) 85.4 80.0-94.0 [place] 629532-06-27 04:46:00 Test Item Value Reference Range Interpretation Comments MCH (test code = MCH) 28.8 pg 27.0-31.0 [facility] HospitalWgaloqgTVXCEQHLNE2249-57-88 04:46:00 Test Item Value Reference Range Interpretation Comments MCHC (test code = MCHC) 33.7 32.0-36.0 [place] 629532-06-27 04:46:00 Test Item Value Reference Range Interpretation Comments RDW (test code = RDW) 15.8 11.5-14.5 [facility] HospitalKumppfwDXLNOBVHRL0808-14-36 04:46:00 Test Item Value Reference Range Interpretation Comments Platelet (test code = Platelet) 454 133-450 [facility] HospitalKviiayvJXXQFZCWXJ4662-52-82 04:46:00 Test Item Value Reference Range Interpretation Comments MPV (test code = MPV) 8.1 7.4-10.4 [facility]2022-06-27 04:46:00 Test Item Value Reference Range Interpretation Comments Ca Ion WB (test code = Ca Ion WB) 1.10 1.05-1.25 [facility]2022-06-27 04:46:00 Test Item Value Reference Range Interpretation Comments Ca Ion at pH 7.4 WB (test code = Ca Ion 1.10 1.05-1.25 at pH 7.4 WB) [facility]2022-06-26 05:49:00 Test Item Value Reference Range Interpretation Comments Glucose Lvl (test code = Glucose Lvl) 290 70-99 [place] 351432-06-26 05:49:00 Test Item Value Reference Range Interpretation Comments BUN (test code = BUN) 83 7-22 [facility]2022-06-26 05:49:00 Test Item Value Reference Range Interpretation Comments Creatinine Lvl (test code = Creatinine 5.12 0.50-1.40 Lvl) [facility]2022-06-26 05:49:00 Test Item Value Reference Range Interpretation Comments Sodium Lvl (test code = Sodium Lvl) 133 135-145 [facility]2022-06-26 05:49:00 Test Item Value Reference Range Interpretation Comments Potassium Lvl (test code = Potassium 4.5 3.5-5.1 Lvl) [facility]2022-06-26 05:49:00 Test Item Value Reference Range Interpretation Comments Chloride Lvl (test code = Chloride Lvl) 102 95-109 [facility]2022-06-26 05:49:00 Test Item Value Reference Range Interpretation Comments CO2 (test code = CO2) 20 24-32 [facility]2022-06-26 05:49:00 Test Item Value Reference Range Interpretation Comments AGAP (test code = AGAP) 15.5 10.0-20.0 [place] 351432-06-26 05:49:00 Test Item Value Reference Range Interpretation Comments Calcium Lvl (test code = Calcium Lvl) 8.6 8.5-10.5 [place] 351432-06-26 05:49:00 Test Item Value Reference Range Interpretation Comments eGFR (test code = eGFR) 12 [facility] HospitalUjxohxkMBXCHDQUJX0519-41-36 05:49:00 Test Item Value Reference Range Interpretation Comments PT (test code = PT) 13.1 s 12.0-14.7 [facility] HospitalPgslnkdWAJDUNQZRJ7977-05-10 05:49:00 Test Item Value Reference Range Interpretation Comments INR (test code = INR) 1.00 1 0.85-1.17 [facility] HospitalFukfmodOARBPVWXMV3957-36-95 05:49:00 Test Item Value Reference Range Interpretation Comments PTT (test code = PTT) 35.7 s 22.9-35.8 [facility] HospitalKsaffmfYNYQOOTUXC2516-91-73 05:49:00 Test Item Value Reference Range Interpretation Comments WBC (test code = WBC) 13.9 3.7-10.4 [facility] HospitalSavrlykCCEIAKCRMU2340-63-24 05:49:00 Test Item Value Reference Range Interpretation Comments RBC (test code = RBC) 2.70 4.70-6.10 [facility] HospitalLyyoxdfZKHFOAKYTQ3952-99-16 05:49:00 Test Item Value Reference Range Interpretation Comments Hgb (test code = Hgb) 7.8 14.0-18.0 [facility] HospitalPzilpgcPAYDDTYKWJ4881-28-47 05:49:00 Test Item Value Reference Range Interpretation Comments Hct (test code = Hct) 23.0 42.0-54.0 [facility] HospitalIevwosvCPCXIQMOCP3397-73-38 05:49:00 Test Item Value Reference Range Interpretation Comments MCV (test code = MCV) 85.4 80.0-94.0 [facility] HospitalMhehxkrUCIQNBZUJV7417-75-00 05:49:00 Test Item Value Reference Range Interpretation Comments MCH (test code = MCH) 28.9 pg 27.0-31.0 [facility]QqwewifHBIMUGPLOY9976-06-79 05:49:00 Test Item Value Reference Range Interpretation Comments MCHC (test code = MCHC) 33.8 32.0-36.0 [facility] HospitalBhdsamePCCVVCOIOJ7319-12-01 05:49:00 Test Item Value Reference Range Interpretation Comments RDW (test code = RDW) 16.1 11.5-14.5 [place] 629532-06-26 05:49:00 Test Item Value Reference Range Interpretation Comments Platelet (test code = Platelet) 107 750-458 [facility] HospitalZdayvkhLPITBFCTBU9112-52-04 05:49:00 Test Item Value Reference Range Interpretation Comments MPV (test code = MPV) 8.3 7.4-10.4 [facility]MvsavcnVIOYUGZGAM7874-41-06 05:49:00 Test Item Value Reference Range Interpretation Comments Segs (test code = Segs) 75.3 45.0-75.0 [facility] HospitalPomjcdzEZITAUUTYJ6749-72-52 05:49:00 Test Item Value Reference Range Interpretation Comments Lymphocytes (test code = Lymphocytes) 12.4 20.0-40.0 [facility] HospitalHgqhezcZTGEWIERRG7850-05-30 05:49:00 Test Item Value Reference Range Interpretation Comments Monocytes (test code = Monocytes) 7.6 2.0-12.0 [facility]SubhwisYXVCARGSCO5007-36-01 05:49:00 Test Item Value Reference Range Interpretation Comments Eosinophils (test code = Eosinophils) 4.2 <=4.0 [facility] HospitalEpwgbdaNSJYQACYYF9012-64-07 05:49:00 Test Item Value Reference Range Interpretation Comments Basophils (test code = Basophils) 0.5 <=1.0 [facility] HospitalMsxtgxzUTWKATBLZH7716-96-74 05:49:00 Test Item Value Reference Range Interpretation Comments Neutrophils # (test code = Neutrophils 10.5 1.5-8.1 #) [facility] HospitalQmcxqwuQQFGGTXHQI9985-81-12 05:49:00 Test Item Value Reference Range Interpretation Comments Lymphocytes # (test code = Lymphocytes 1.7 1.0-5.5 #) [facility] HospitalUloqunrAVVLZUARUJ3898-09-71 05:49:00 Test Item Value Reference Range Interpretation Comments Monocytes # (test code = Monocytes #) 1.1 <=0.8 [facility] HospitalVrcydtjYKWVYXABEX2672-74-40 05:49:00 Test Item Value Reference Range Interpretation Comments Eosinophils # (test code = Eosinophils 0.6 <=0.5 #) [facility] HospitalRffikgpWVDRFJVBRO4951-84-28 05:49:00 Test Item Value Reference Range Interpretation Comments Basophils # (test code = Basophils #) 0.1 <=0.2 [facility] TaylorUyqblwwHYQTOSSDXFWU2027-00-31 12:48:00 Test Item Value Reference Range Interpretation Comments Potassium Lvl (test code = Potassium 4.4 3.5-5.1 Lvl) [facility] RockCHEM HRRWK9259-77-92 08:25:00 Test Item Value Reference Range Interpretation Comments Glucose Lvl (test code = Glucose Lvl) 188 70-99 [place] 351432-06-25 08:25:00 Test Item Value Reference Range Interpretation Comments BUN (test code = BUN) 38 7-22 [place] 351432-06-25 08:25:00 Test Item Value Reference Range Interpretation Comments Creatinine Lvl (test code = Creatinine 3.15 0.50-1.40 Lvl) [place] 351432-06-25 08:25:00 Test Item Value Reference Range Interpretation Comments Sodium Lvl (test code = Sodium Lvl) 137 135-145 [place] 351432-06-25 08:25:00 Test Item Value Reference Range Interpretation Comments Chloride Lvl (test code = Chloride Lvl) 105 95-109 [place] 351432-06-25 08:25:00 Test Item Value Reference Range Interpretation Comments CO2 (test code = CO2) 22 24-32 [place] 351432-06-25 08:25:00 Test Item Value Reference Range Interpretation Comments Calcium Lvl (test code = Calcium Lvl) 8.6 8.5-10.5 [place] 351432-06-25 08:25:00 Test Item Value Reference Range Interpretation Comments AGAP (test code = AGAP) 14.1 10.0-20.0 [place] 351432-06-25 08:25:00 Test Item Value Reference Range Interpretation Comments eGFR (test code = eGFR) 21 [place] 351432-06-25 08:25:00 Test Item Value Reference Range Interpretation Comments Magnesium Lvl (test code = Magnesium 2.1 1.8-2.4 Lvl) [place] 351432-06-25 08:25:00 Test Item Value Reference Range Interpretation Comments Phosphorus (test code = Phosphorus) 3.8 2.5-4.5 [place] 351432-06-25 08:25:00 Test Item Value Reference Range Interpretation Comments Total Protein (test code = Total 7.4 6.4-8.4 Protein) [place] 351432-06-25 08:25:00 Test Item Value Reference Range Interpretation Comments Albumin Lvl (test code = Albumin Lvl) 1.3 3.5-5.0 [place] 351432-06-25 08:25:00 Test Item Value Reference Range Interpretation Comments ALT (test code = ALT) 66 <=65 [place] 351432-06-25 08:25:00 Test Item Value Reference Range Interpretation Comments AST (test code = AST) 79 <=37 [place] [address]-06-25 08:25:00 Test Item Value Reference Range Interpretation Comments Alk Phos (test code = Alk Phos) 373 39-136 [place] 351432-06-25 08:25:00 Test Item Value Reference Range Interpretation Comments Bili Total (test code = Bili Total) 0.5 0.2-1.[address]06-25 08:25:00 Test Item Value Reference Range Interpretation Comments Bili Direct (test code = Bili Direct) 0.2 <=0.3 [place] [address]-06-25 08:25:00 Test Item Value Reference Range Interpretation Comments Bili Indirect (test code = Bili 0.3 <=1.0 Indirect) [place] [address]-06-25 08:25:00 Test Item Value Reference Range Interpretation Comments Globulin (test code = Globulin) 6.1 2.7-4.2 [place] [address]-06-25 08:25:00 Test Item Value Reference Range Interpretation Comments A/G Ratio (test code = A/G Ratio) 0.2 1 0.7-1.6 [place] [address]-06-25 08:25:00 Test Item Value Reference Range Interpretation Comments WBC (test code = WBC) 15.5 3.7-10.4 [place] [address]-06-25 08:25:00 Test Item Value Reference Range Interpretation Comments RBC (test code = RBC) 2.56 4.70-6.10 [place] [address]-06-25 08:25:00 Test Item Value Reference Range Interpretation Comments Hgb (test code = Hgb) 7.1 14.0-18.0 [place] [address]-06-25 08:25:00 Test Item Value Reference Range Interpretation Comments Hct (test code = Hct) 21.5 42.0-54.0 [place] [address]-06-25 08:25:00 Test Item Value Reference Range Interpretation Comments MCV (test code = MCV) 83.8 80.0-94.0 [facility] HospitalWrwmvizEHJIEQNULI3921-83-78 08:25:00 Test Item Value Reference Range Interpretation Comments MCH (test code = MCH) 27.7 pg 27.0-31.0 [facility] HospitalJuiabacDQRAXMDPBG9576-41-71 08:25:00 Test Item Value Reference Range Interpretation Comments MCHC (test code = MCHC) 33.1 32.0-36.0 [facility] HospitalUwetelvMCDAADJFBK8033-03-04 08:25:00 Test Item Value Reference Range Interpretation Comments RDW (test code = RDW) 16.1 11.5-14.5 [place] 629532-06-25 08:25:00 Test Item Value Reference Range Interpretation Comments Platelet (test code = Platelet) 483 133-450 [facility] HospitalSthivkoGAGTRJYBIN8156-37-95 08:25:00 Test Item Value Reference Range Interpretation Comments MPV (test code = MPV) 8.4 7.4-10.4 [place] 629532-06-25 08:25:00 Test Item Value Reference Range Interpretation Comments Segs (test code = Segs) 69.4 45.0-75.0 [facility] HospitalFsejmvfVYCQJMLVVO0753-62-60 08:25:00 Test Item Value Reference Range Interpretation Comments Lymphocytes (test code = Lymphocytes) 16.2 20.0-40.0 [facility] HospitalIsibqqwWTLANDMXCG2549-09-62 08:25:00 Test Item Value Reference Range Interpretation Comments Monocytes (test code = Monocytes) 10.1 2.0-12.0 [facility] HospitalQcwndcbAZLJKBLNBM4133-92-75 08:25:00 Test Item Value Reference Range Interpretation Comments Eosinophils (test code = Eosinophils) 3.5 <=4.0 [facility] HospitalDevukucNWJGTRISSK9672-46-20 08:25:00 Test Item Value Reference Range Interpretation Comments Basophils (test code = Basophils) 0.8 <=1.0 [place] 629532-06-25 08:25:00 Test Item Value Reference Range Interpretation Comments Neutrophils # (test code = Neutrophils 10.7 1.5-8.1 #) [facility] HospitalEbagissDZVPEVDFBI8209-67-99 08:25:00 Test Item Value Reference Range Interpretation Comments Lymphocytes # (test code = Lymphocytes 2.5 1.0-5.5 #) [facility] HospitalSbhkxzcHFRSMVWCVO2535-10-15 08:25:00 Test Item Value Reference Range Interpretation Comments Monocytes # (test code = Monocytes #) 1.6 <=0.8 [facility] HospitalTceydpcTLWPDMIDXQ7969-68-87 08:25:00 Test Item Value Reference Range Interpretation Comments Eosinophils # (test code = Eosinophils 0.5 <=0.5 #) [facility] HospitalTholutnJJUSMVEDUQ8516-95-22 08:25:00 Test Item Value Reference Range Interpretation Comments Basophils # (test code = Basophils #) 0.1 <=0.2 [facility] HospitalNwybrkfFARKHHWTOB1346-50-79 16:59:00 Test Item Value Reference Range Interpretation Comments F5 Leiden PCR (test Negative (01/21/22 11:59 code = F5 Leiden PCR) AM) [facility] HospitalJqwvgxzMOLYARXTAP5202-35-22 16:59:00 Test Item Value Reference Range Interpretation Comments F5 Leiden Intrp (test code = F5 see note Leiden Intrp) [facility] HospitalAhyqlvwFUYXXNXKDU7648-18-22 16:59:00 Test Item Value Reference Range Interpretation Comments APC Resist (test code = APC Resist) 3.0 [facility] HospitalLsxvtuzBTPOPAHOQP4669-10-19 16:59:00 Test Item Value Reference Range Interpretation Comments F2 Mutation PCR (test Negative (01/21/22 code = F2 Mutation PCR) 11:59 AM) [facility] HospitalOwcdjaoYIQGPBNFKV7764-00-64 16:59:00 Test Item Value Reference Range Interpretation Comments F2 Mut Interp (test code = F2 Mut see note Interp) [facility] HospitalVnkhpuoMMQEVTXXWM2890-88-24 16:59:00 Test Item Value Reference Range Interpretation Comments Protein S Func (test code = Protein S 72 54-137 Func) [facility] HospitalYgcetbgJQRQGEMZMY5435-73-65 16:59:00 Test Item Value Reference Range Interpretation Comments Protein C Func (test code = Protein C 82 72-147 Func) [facility] HospitalPknnxphBMFEPMUZLQ0983-37-97 16:59:00 Test Item Value Reference Range Interpretation Comments AT III Func (test code = AT III Func) 122 77-140 [facility] HospitalRwwgiuyCIPYCGYQWA6145-60-63 16:59:00 Test Item Value Reference Range Interpretation Comments Cardiolipin IgA (test code = 8.4 Cardiolipin IgA) [facility] HospitalOwdyoizSUPSSEIWDL9753-11-46 16:59:00 Test Item Value Reference Range Interpretation Comments Cardiolipin IgG (test code = no gt Cardiolipin IgG) [facility] RockOdhkegyBFPSLDKFKJ1850-45-20 16:59:00 Test Item Value Reference Range Interpretation Comments Cardiolipin IgM (test code = 8.4 Cardiolipin IgM) [facility] RockZdutpsfXLDRIZUSXC6542-73-67 16:59:00 Test Item Value Reference Range Interpretation Comments Homocyst Tot (test code = Homocyst Tot) 8.9 3.7-13.9 [facility] IWKSBYV2593-47-38 09:26:00 Test Item Value Reference Range Interpretation Comments RBC product (test code Product available = RBC product) (01/21/22 4:26 AM) [facility] [place] [id number] 08:24:00 Test Item Value Reference Range Interpretation Comments Phosphorus (test code = Phosphorus) 3.9 2.5-4.5 [facility] [place] [id number] 08:24:00 Test Item Value Reference Range Interpretation Comments Magnesium Lvl (test code = Magnesium 2.4 1.8-2.4 Lvl) [facility] [place] [id number] 08:24:00 Test Item Value Reference Range Interpretation Comments Total Protein (test code = Total 7.3 6.4-8.4 Protein) [facility] [place] [id number] 08:24:00 Test Item Value Reference Range Interpretation Comments Albumin Lvl (test code = Albumin Lvl) 1.2 3.5-5.0 [facility] [place] [id number] 08:24:00 Test Item Value Reference Range Interpretation Comments ALT (test code = ALT) 62 <=65 [facility] [place] [id number] 08:24:00 Test Item Value Reference Range Interpretation Comments AST (test code = AST) 72 <=37 [facility] [place] [id number] 08:24:00 Test Item Value Reference Range Interpretation Comments Alk Phos (test code = Alk Phos) 391 39-136 [facility] [place] [id number] 08:24:00 Test Item Value Reference Range Interpretation Comments Bili Total (test code = Bili Total) 0.6 0.2-1.3 [facility] [place] [id number] 08:24:00 Test Item Value Reference Range Interpretation Comments Bili Direct (test code = Bili Direct) 0.2 <=0.3 [facility]2022-06-24 08:24:00 Test Item Value Reference Range Interpretation Comments Bili Indirect (test code = Bili 0.4 <=1.0 Indirect) [facility]2022-06-24 08:24:00 Test Item Value Reference Range Interpretation Comments Globulin (test code = Globulin) 6.1 2.7-4.2 [place] 351432-06-24 08:24:00 Test Item Value Reference Range Interpretation Comments A/G Ratio (test code = A/G Ratio) 0.2 1 0.7-1.6 [place] 629532-06-24 08:24:00 Test Item Value Reference Range Interpretation Comments PT (test code = PT) 14.2 s 12.0-14.7 [place] 629532-06-24 08:24:00 Test Item Value Reference Range Interpretation Comments INR (test code = INR) 1.11 1 0.85-1.17 [place] 629532-06-24 08:24:00 Test Item Value Reference Range Interpretation Comments PTT (test code = PTT) 36.6 s 22.9-35.8 [facility]2022-06-23 18:53:00 Test Item Value Reference Range Interpretation Comments Iron (test code = Iron) 28 [facility]2022-06-23 18:53:00 Test Item Value Reference Range Interpretation Comments TIBC (test code = TIBC) 200 [facility]2022-06-23 18:53:00 Test Item Value Reference Range Interpretation Comments % Satur Fe (test code = % Satur Fe) 14 [facility] HospitalHithdekZPKAXMXKCL3256-13-53 15:56:00 Test Item Value Reference Range Interpretation Comments PT (test code = PT) 14.4 s 12.0-14.7 [place] 629532-06-23 15:56:00 Test Item Value Reference Range Interpretation Comments INR (test code = INR) 1.13 1 0.85-1.17 [place] 629532-06-23 15:56:00 Test Item Value Reference Range Interpretation Comments PTT (test code = PTT) 46.4 s 22.9-35.8 [place] 351432-06-23 09:22:00 Test Item Value Reference Range Interpretation Comments Total Protein (test code = Total 7.3 6.4-8.4 Protein) [facility]2022-06-23 09:22:00 Test Item Value Reference Range Interpretation Comments Albumin Lvl (test code = Albumin Lvl) 1.3 3.5-5.0 [facility]2022-06-23 09:22:00 Test Item Value Reference Range Interpretation Comments ALT (test code = ALT) 78 <=65 [place] 351432-06-23 09:22:00 Test Item Value Reference Range Interpretation Comments AST (test code = AST) 105 <=37 [place] 351432-06-23 09:22:00 Test Item Value Reference Range Interpretation Comments Alk Phos (test code = Alk Phos) 432 39-136 [facility]2022-06-23 09:22:00 Test Item Value Reference Range Interpretation Comments Bili Total (test code = Bili Total) 0.6 0.2-1.3 [facility]2022-06-23 09:22:00 Test Item Value Reference Range Interpretation Comments Bili Direct (test code = Bili Direct) 0.3 <=0.3 [place] 351432-06-23 09:22:00 Test Item Value Reference Range Interpretation Comments Bili Indirect (test code = Bili 0.3 <=1.0 Indirect) [facility]2022-06-23 09:22:00 Test Item Value Reference Range Interpretation Comments Globulin (test code = Globulin) 6.0 2.7-4.2 [facility]2022-06-23 09:22:00 Test Item Value Reference Range Interpretation Comments A/G Ratio (test code = A/G Ratio) 0.2 1 0.7-1.6 [facility] AND [id number] 19:27:00 Test Item Value Reference Range Interpretation Comments Occult Bld Stl (test Positive *ABN*(01/19/22 code = Occult Bld Stl) 2:27 PM) [facility]annBRISTOL[facility] [id number] 15:27:00 Test Item Value Reference Range Interpretation Comments UA Color (test code = Lizzeth *ABN*(01/19/22 UA Color) 10:27 AM) [facility] AND [id number] 15:27:00 Test Item Value Reference Range Interpretation Comments UA Turbidity (test code Marked *ABN*(01/19/22 = UA Turbidity) 10:27 AM) [facility] AND [id number] 15:27:00 Test Item Value Reference Range Interpretation Comments UA Spec Grav (test code = UA Spec 1.021 1 Grav) [facility] AND [id number] 15:27:00 Test Item Value Reference Range Interpretation Comments UA pH (test code = UA pH) 5.0 1 5.0-8.0 [facility] AND [id number] 15:27:00 Test Item Value Reference Range Interpretation Comments UA Protein (test code = UA Protein) 100 mg/dL [facility] AND [id number] 15:27:00 Test Item Value Reference Range Interpretation Comments UA Glucose (test code = UA Negative mg/dL Glucose) [facility] AND [id number] 15:27:00 Test Item Value Reference Range Interpretation Comments UA Ketones (test code = UA Negative mg/dL Ketones) [facility] AND [id number] 15:27:00 Test Item Value Reference Range Interpretation Comments UA Bili (test code = Negative *NA*(01/19/22 UA Bili) 10:27 AM) [facility] AND [id number] 15:27:00 Test Item Value Reference Range Interpretation Comments UA Blood (test code = Moderate *ABN*(01/19/22 UA Blood) 10:27 AM) [facility] AND [id number] 15:27:00 Test Item Value Reference Range Interpretation Comments UA Urobilinogen (test code = UA no gt 0.1-1.0 Urobilinogen) [facility] AND [id number] 15:27:00 Test Item Value Reference Range Interpretation Comments UA Nitrite (test code Negative (01/19/22 10:27 = UA Nitrite) AM) [facility] AND [id number] 15:27:00 Test Item Value Reference Range Interpretation Comments UA Leuk Est (test Moderate *ABN*(01/19/22 code = UA Leuk Est) 10:27 AM) [facility] AND [id number] 15:27:00 Test Item Value Reference Range Interpretation Comments UA WBC (test code = UA WBC) 120 <=5 [facility]annBRIST[facility] AND [id number] 15:27:00 Test Item Value Reference Range Interpretation Comments UA RBC (test code = UA RBC) 6 <=2 [facility]annBRIST[facility] AND [id number] 15:27:00 Test Item Value Reference Range Interpretation Comments UA Bacteria (test code = UA Occasional /HPF Bacteria) [facility] [id number] 15:27:00 Test Item Value Reference Range Interpretation Comments UA [place] Yeast (test code = UA Occasional /HPF [place] Yeast) [facility] AND [id number] 15:27:00 Test Item Value Reference Range Interpretation Comments UA Sq Epi (test code = UA Sq Epi) None Seen [facility] RockCulture: [id number] 15:27:00 Test Item Value Reference Range Interpretation Comments Culture: Urine (test 10,000 - 50,000 CFU/mL code = Culture: Urine) Yeast [facility] [id number] 14:46:00 Test Item Value Reference Range Interpretation Comments Iron (test code = Iron) 44 [facility] [id number] 14:46:00 Test Item Value Reference Range Interpretation Comments TIBC (test code = TIBC) 237 [facility]2022-06-22 14:46:00 Test Item Value Reference Range Interpretation Comments % Satur Fe (test code = % Satur Fe) 19 [facility] [id number] 14:46:00 Test Item Value Reference Range Interpretation Comments Ferritin Lvl (test code = Ferritin Lvl) 1630 22-431 [facility] [id number] 14:46:00 Test Item Value Reference Range Interpretation Comments Vitamin B12 Lvl (test code = Vitamin 556 B12 Lvl) [facility] [id number] 13:18:00 Test Item Value Reference Range Interpretation Comments Folate Lvl (test code = Folate Lvl) 7.5 [facility]2022-06-22 13:18:00 Test Item Value Reference Range Interpretation Comments Procalcitonin Lvl (test code = 3.57 <=0.10 Procalcitonin Lvl) [facility] [id number] 13:08:00 Test Item Value Reference Range Interpretation Comments Lactic Acid Lvl (test code = Lactic 1.0 0.5-2.2 Acid Lvl) [facility] TaylorKateKITTYMYCIN:SUSC:PT:ISOLATE:ORDQN:[id number] 11:42:00 Test Item Value Reference Range Interpretation Comments Gram Stain Report Gram Stain Performed By: (test code = Gram [facility] [place] Stain Report) [facility] BuckJOHNCIN:SUSC:PT:ISOLATE:ORDQN:[id number] 11:42:00 Test Item Value Reference Range Interpretation Comments Culture: Respiratory Many Pseudomonas w/Gram Stain (test code aeruginosa = Culture: Respiratory w/Gram Stain) [facility] TaylorKateKITTYMYCIN:SUSC:PT:ISOLATE:ORDQN:[id number] 11:42:00 Test Item Value Reference Range Interpretation Comments Pseudomonas aeruginosa Pseudomonas aeruginosa (test code = Pseudomonas aeruginosa) [facility] [id number] 08:00:00 Test Item Value Reference Range Interpretation Comments ABO/Rh (test code = ABO/Rh) O NEG [facility] [id number] 08:00:00 Test Item Value Reference Range Interpretation Comments Antibody Scrn (test Negative (01/19/22 3:00 code = Antibody Scrn) AM) [facility] [id number] 07:40:00 Test Item Value Reference Range Interpretation Comments RBC product (test code Product available = RBC product) (01/19/22 2:40 AM) [facility] RockBACTERIAL - [id number] 05:52:00 Test Item Value Reference Range Interpretation Comments MRSA by PCR (test Negative (01/19/22 12:52 code = MRSA by PCR) AM) [facility] TaylorBnfhjoeJBOXVTEIIR6164-44-09 05:52:00 Test Item Value Reference Range Interpretation Comments Bands (test code = Bands) 1.0 <=11.0 [facility] TaylorDzisvwbBULCDEQTHR8778-98-64 05:52:00 Test Item Value Reference Range Interpretation Comments Metamyelocytes (test code = 1.0 <=1.0 Metamyelocytes) [facility] RockHhsywigVLMVOJVGYL7366-94-50 05:52:00 Test Item Value Reference Range Interpretation Comments Atypical Lymphs (test code = Atypical 0.0 Lymphs) [facility]zNNGSGBGUHZ8388-33-80 05:52:00 Test Item Value Reference Range Interpretation Comments Plt Morph (test code = Normal (01/19/22 12:52 Plt Morph) AM) [facility]ZsfmcfpVUJTZDRUHR7669-76-68 05:52:00 Test Item Value Reference Range Interpretation Comments Large Plt (test code Moderate *ABN*(01/19/22 = Large Plt) 12:52 AM) [facility]2022-06-22 05:52:00 Test Item Value Reference Range Interpretation Comments Ca Ion WB (test code = Ca Ion WB) 1.09 1.05-1.25 [facility]2022-06-22 05:52:00 Test Item Value Reference Range Interpretation Comments Ca Ion at pH 7.4 WB (test code = Ca Ion 1.10 1.05-1.25 at pH 7.4 WB) [place] 629532-06-21 04:29:00 Test Item Value Reference Range Interpretation Comments Bands (test code = Bands) 1.0 <=11.0 [place] 629532-06-21 04:29:00 Test Item Value Reference Range Interpretation Comments Metamyelocytes (test code = 1.0 <=1.0 Metamyelocytes) [facility]EfafzhgQRGNHSMVJI2187-03-57 04:29:00 Test Item Value Reference Range Interpretation Comments Atypical Lymphs (test code = Atypical 0.0 Lymphs) [facility] HospitalRxdiypwCFTNJAHOAU8405-70-10 04:29:00 Test Item Value Reference Range Interpretation Comments Plt Morph (test code = Normal (01/17/22 11:29 Plt Morph) PM) [place] 629532-06-21 04:29:00 Test Item Value Reference Range Interpretation Comments Polychrom (test code = Moderate *ABN*(01/17/22 Polychrom) 11:29 PM) [facility]2022-06-21 04:29:00 Test Item Value Reference Range Interpretation Comments Ca Ion WB (test code = Ca Ion WB) 1.05 1.05-1.25 [place] 938212-06-21 04:29:00 Test Item Value Reference Range Interpretation Comments Ca Ion at pH 7.4 WB (test code = Ca Ion 1.09 1.05-1.25 at pH 7.4 WB) [address]06-20 21:10:00 Test Item Value Reference Range Interpretation Comments Bands (test code = Bands) 2.0 <=11.0 [facility] HospitalHftbppcUXXSXPEMQZ5281-37-29 21:10:00 Test Item Value Reference Range Interpretation Comments Metamyelocytes (test code = 1.0 <=1.0 Metamyelocytes) [facility] HospitalRtgpeobAMOPOLYRZI3460-18-33 21:10:00 Test Item Value Reference Range Interpretation Comments Myelocytes (test code = Myelocytes) 1.0 [facility] HospitalZgwjsosFLPHDHGHPC6440-77-90 21:10:00 Test Item Value Reference Range Interpretation Comments Atypical Lymphs (test code = Atypical 0.0 Lymphs) [facility] HospitalXuinjtvVGXXWYEWBF9074-11-09 21:10:00 Test Item Value Reference Range Interpretation Comments Hypochrom (test code = 1+ (01/17/22 4:10 PM) Hypochrom) [facility] HospitalHtjfcesJJYJEWBXRD5075-53-84 21:10:00 Test Item Value Reference Range Interpretation Comments Polychrom (test code = Moderate *ABN*(01/17/22 Polychrom) 4:10 PM) [facility] HospitalRlzgabvWHWQPOGFFB8191-38-91 21:10:00 Test Item Value Reference Range Interpretation Comments Rouleaux (test code = Present *ABN*(01/17/22 Rouleaux) 4:10 PM) [facility] [id number] 08:14:00 Test Item Value Reference Range Interpretation Comments RBC product (test code Product available = RBC product) (01/17/22 3:14 AM) [facility] [id number] 07:10:00 Test Item Value Reference Range Interpretation Comments ABO/Rh (test code = ABO/Rh) O NEG [facility] [id number] 07:10:00 Test Item Value Reference Range Interpretation Comments Antibody Scrn (test Negative (01/17/22 2:10 code = Antibody Scrn) AM) [facility] HospitalIzmkonnOQCDXWDLYE9171-27-89 05:42:00 Test Item Value Reference Range Interpretation Comments Plt Morph (test code = Clumped (01/17/22 12:42 Plt Morph) AM) [facility] HospitalXbeacewXRZXLXXHNX4070-19-35 05:42:00 Test Item Value Reference Range Interpretation Comments Anisocyte (test code = 1+ *ABN*(01/17/22 Anisocyte) 12:42 AM) [facility]LWIZTDZDZB5677-81-53 05:42:00 Test Item Value Reference Range Interpretation Comments Hypochrom (test code = 1+ (01/17/22 12:42 Hypochrom) AM) [facility] [id number] 04:51:00 Test Item Value Reference Range Interpretation Comments Procalcitonin Lvl (test code = 3.21 <=0.10 Procalcitonin Lvl) [facility] HospitalPhfpxbjLKUVFTWBHB5509-71-68 04:50:00 Test Item Value Reference Range Interpretation Comments Myelocytes (test code = Myelocytes) 1.0 [facility] HospitalYhowdumZIIXQRMDFI5625-96-17 04:50:00 Test Item Value Reference Range Interpretation Comments Anisocyte (test code = 1+ *ABN*(01/13/22 Anisocyte) 11:50 PM) [facility]KnqkjmgDSNBIECYWA3016-99-27 04:50:00 Test Item Value Reference Range Interpretation Comments Hypochrom (test code = 1+ (01/13/22 11:50 Hypochrom) PM) [facility] MichiganJignrrsGXCIZWETXT2423-06-91 04:50:00 Test Item Value Reference Range Interpretation Comments Large Plt (test code Moderate *ABN*(01/13/22 = Large Plt) 11:50 PM) [facility] HospitalIostcvqZZOYYLJYWZ2100-37-13 05:00:00 Test Item Value Reference Range Interpretation Comments Vancomycin AUC (test code = Vancomycin 25.0 AUC) [facility] [id number] 19:05:00 Test Item Value Reference Range Interpretation Comments Lipase Lvl (test code = Lipase Lvl) 74 73-393 [facility] [id number] 19:05:00 Test Item Value Reference Range Interpretation Comments Amylase Lvl (test code = Amylase Lvl) 36 25-115 [facility]AxuoamsAQHKJNRDFM0082-24-83 19:05:00 Test Item Value Reference Range Interpretation Comments Vancomycin AUC (test code = Vancomycin 7.1 AUC) [facility] St[facility] Semtbv8016-58-16 16:48:00 Test Item Value Reference Range Interpretation Comments Gram Stain Report Gram Stain Performed By: (test code = Gram [facility] Stain Report) [facility] Respiratory w/Gram Fnhqg2246-76-79 16:48:00 Test Item Value Reference Range Interpretation Comments Culture: Respiratory Few Gram Negative Rods w/Gram Stain (test Refer To Culture # code = Culture: [phone] Collected Respiratory w/Gram On: 01-12-22 For Stain) Identification And Susceptibility Results , Normal Respiratory [place] Isolated [facility] VtkekeqLSCPFNFSID4625-99-36 11:24:00 Test Item Value Reference Range Interpretation Comments Myelocytes (test code = Myelocytes) 2.0 [facility] NzwnvgeAPLKNNUNGR9348-10-40 11:24:00 Test Item Value Reference Range Interpretation Comments RBC Morph (test code = Normal (01/12/22 6:24 RBC Morph) AM) [facility] QtqrqifJXWNVVPHIQ6131-53-93 11:24:00 Test Item Value Reference Range Interpretation Comments Tot Cell Ct (test code = Tot Cell Ct) 200 1 [facility] IodhhoeWAYSKBRUIY4531-17-64 11:24:00 Test Item Value Reference Range Interpretation Comments Vanco Lvl (test code = Vanco Lvl) 32.1 [facility]annBACT[facility] - [id number] 09:55:00 Test Item Value Reference Range Interpretation Comments MRSA by PCR (test Negative (01/11/22 4:55 code = MRSA by PCR) AM) [facility] [id number] 09:49:00 Test Item Value Reference Range Interpretation Comments UA Color (test code = Yellow *NA*(01/11/22 UA Color) 4:49 AM) [facility] [id number] 09:49:00 Test Item Value Reference Range Interpretation Comments UA Turbidity (test code Marked *ABN*(01/11/22 = UA Turbidity) 4:49 AM) [facility] [id number] 09:49:00 Test Item Value Reference Range Interpretation Comments UA Spec Grav (test code = UA Spec 1.016 1 Grav) [facility] [id number] 09:49:00 Test Item Value Reference Range Interpretation Comments UA pH (test code = UA pH) 5.0 1 5.0-8.0 [facility] [id number] 09:49:00 Test Item Value Reference Range Interpretation Comments UA Protein (test code = UA Protein) 100 mg/dL [facility] [id number] 09:49:00 Test Item Value Reference Range Interpretation Comments UA Glucose (test code = UA Negative mg/dL Glucose) [facility] [id number] 09:49:00 Test Item Value Reference Range Interpretation Comments UA Ketones (test code = UA Negative mg/dL Ketones) [facility] [id number] 09:49:00 Test Item Value Reference Range Interpretation Comments UA Bili (test code = Negative *NA*(01/11/22 UA Bili) 4:49 AM) [facility] [id number] 09:49:00 Test Item Value Reference Range Interpretation Comments UA Blood (test code = Moderate *ABN*(01/11/22 UA Blood) 4:49 AM) [facility] [id number] 09:49:00 Test Item Value Reference Range Interpretation Comments UA Urobilinogen (test code = UA no gt 0.1-1.0 Urobilinogen) [facility] [id number] 09:49:00 Test Item Value Reference Range Interpretation Comments UA Nitrite (test code Negative (01/11/22 4:49 = UA Nitrite) AM) [facility] [id number] 09:49:00 Test Item Value Reference Range Interpretation Comments UA Leuk Est (test Moderate *ABN*(01/11/22 code = UA Leuk Est) 4:49 AM) [facility] [id number] 09:49:00 Test Item Value Reference Range Interpretation Comments UA WBC (test code = UA WBC) 38 <=5 [facility] [id number] 09:49:00 Test Item Value Reference Range Interpretation Comments UA RBC (test code = UA RBC) 60 <=2 [facility] [id number] 09:49:00 Test Item Value Reference Range Interpretation Comments UA Bacteria (test code = UA Few /HPF Bacteria) [facility] [id number] 09:49:00 Test Item Value Reference Range Interpretation Comments UA Amorph Alyssa (test code = Occasional /HPF UA Amorph Alyssa) [facility] [id number] 09:49:00 Test Item Value Reference Range Interpretation Comments UA [place] Yeast (test code = UA [place] Many /HPF Yeast) [facility] [id number] 09:49:00 Test Item Value Reference Range Interpretation Comments UA Sq Epi (test code = UA Sq Epi) None [facility]en [facility] TaylorannCulture: [id number] 09:40:00 Test Item Value Reference Range Interpretation Comments Culture: Urine (test 50,000 - 100,000 code = Culture: Urine) CFU/mL Yeast [facility]annCHEM [id number] 06:22:00 Test Item Value Reference Range Interpretation Comments Procalcitonin Lvl (test code = 4.23 <=0.10 Procalcitonin Lvl) [facility] [id number] 09:40:00 Test Item Value Reference Range Interpretation Comments UA Color (test code = Red *ABN*(01/09/22 4:40 UA Color) AM) [facility] [id number] 09:40:00 Test Item Value Reference Range Interpretation Comments UA Turbidity (test code Marked *ABN*(01/09/22 = UA Turbidity) 4:40 AM) [facility] [id number] 09:40:00 Test Item Value Reference Range Interpretation Comments UA Spec Grav (test code = UA Spec 1.019 1 Grav) [facility] [id number] 09:40:00 Test Item Value Reference Range Interpretation Comments UA pH (test code = UA pH) 5.0 1 5.0-8.0 [facility] [id number] 09:40:00 Test Item Value Reference Range Interpretation Comments UA Protein (test code = UA Protein) 100 mg/dL [facility] [id number] 09:40:00 Test Item Value Reference Range Interpretation Comments UA Ketones (test code = UA Negative mg/dL Ketones) [facility] [id number] 09:40:00 Test Item Value Reference Range Interpretation Comments UA Bili (test code = Negative *NA*(01/09/22 UA Bili) 4:40 AM) [facility] [id number] 09:40:00 Test Item Value Reference Range Interpretation Comments UA Blood (test code = Moderate *ABN*(01/09/22 UA Blood) 4:40 AM) [facility] [id number] 09:40:00 Test Item Value Reference Range Interpretation Comments UA Urobilinogen (test code = UA no gt 0.1-1.0 Urobilinogen) [facility]URINE AND [id number] 09:40:00 Test Item Value Reference Range Interpretation Comments UA Nitrite (test code Negative (01/09/22 4:40 = UA Nitrite) AM) [facility]annB[facility] AND [id number] 09:40:00 Test Item Value Reference Range Interpretation Comments UA Leuk Est (test Moderate *ABN*(01/09/22 code = UA Leuk Est) 4:40 AM) [facility] [id number] 09:40:00 Test Item Value Reference Range Interpretation Comments UA WBC (test code = UA WBC) no gt <=5 [facility] [id number] 09:40:00 Test Item Value Reference Range Interpretation Comments UA RBC (test code = UA RBC) no gt <=2 [facility]annB[facility]ST[facility] AND [id number] 09:40:00 Test Item Value Reference Range Interpretation Comments UA Bacteria (test code = UA Moderate /HPF Bacteria) [facility] AND [id number] 09:40:00 Test Item Value Reference Range Interpretation Comments UA Amorph Alyssa (test code = Occasional /HPF UA Amorph Alyssa) [facility]ann[facility] AND [id number] 09:40:00 Test Item Value Reference Range Interpretation Comments UA [place] Yeast (test code = UA [place] Many /HPF Yeast) [facility] AND [id number] 09:40:00 Test Item Value Reference Range Interpretation Comments UA Sq Epi (test code = UA Sq Epi) None Seen [facility] HermannBRISTOL[facility] AND [id number] 09:40:00 Test Item Value Reference Range Interpretation Comments UA Glucose (test code = UA Glucose) 50mg/dl [facility] TaylorannCHEM [id number] 07:43:00 Test Item Value Reference Range Interpretation Comments Lactic Acid Lvl (test code = Lactic 1.6 0.5-2.2 Acid Lvl) [facility] HermannOXACILLIN:SUSC:PT:ISOLATE:ORDQN:[id number] 06:36:00 Test Item Value Reference Range Interpretation Comments Gram Stain Report Gram Stain Performed By: (test code = Gram [facility] [place] Stain Report) [facility]annOXACILLIN:SUSC:PT:ISOLATE:ORDQN:[id number] 06:36:00 Test Item Value Reference Range Interpretation Comments Culture: Respiratory Few Enterobacter cloacae w/Gram Stain (test Moderate Staphylococcus code = Culture: aureus Respiratory w/Gram Stain) [facility] HermannOXACILLIN:SUSC:PT:ISOLATE:ORDQN:[id number] 06:36:00 Test Item Value Reference Range Interpretation Comments Staphylococcus aureus Staphylococcus aureus (test code = Staphylococcus aureus) [facility] HermannOXACILLIN:SUSC:PT:ISOLATE:ORDQN:[id number] 06:36:00 Test Item Value Reference Range Interpretation Comments Enterobacter cloacae Enterobacter cloacae (test code = Enterobacter cloacae) [facility] RockOsbrfirDPSTMKRTVC4004-93-25 23:13:00 Test Item Value Reference Range Interpretation Comments Hep Bs Ag (test code Negative *NA*(01/07/22 = Hep Bs Ag) 6:13 PM) [facility] CenterFpvovskUEJSWQEBUZ0088-06-38 07:06:00 Test Item Value Reference Range Interpretation Comments Vanco Lvl (test code = Vanco Lvl) 16.4 [facility] [id number] 18:39:00 Test Item Value Reference Range Interpretation Comments ABO/Rh (test code = ABO/Rh) O NEG [facility] [id number] 18:39:00 Test Item Value Reference Range Interpretation Comments Antibody Scrn (test Negative (01/06/22 1:39 code = Antibody Scrn) PM) [facility] CenterKgfolqnKZQOOVELBK6156-33-74 08:53:00 Test Item Value Reference Range Interpretation Comments Vancomycin AUC (test code = Vancomycin 24.9 AUC) [facility] TaylorannTRIMETHOPRIM+SULFAMETHOXAZOLE:SUSC:PT:ISOLATE:ORDQN:DAYLIN 2022-01-04 17:44:00 Test Item Value Reference Range Interpretation Comments Gram Stain Report Gram Stain Performed By: (test code = Gram [facility] Stain Report) [facility] HermannTRIMETHOPRIM+SULFAMETHOXAZOLE:SUSC:PT:ISOLATE:ORDQN:DAYLIN 2022-01-04 17:44:00 Test Item Value Reference Range Interpretation Comments Culture: Respiratory Many Staphylococcus w/Gram Stain (test aureus Normal code = Culture: Respiratory [place] Respiratory w/Gram Isolated Stain) [facility]IMETHOP[facility]IM+SULFAMETHOXAZOLE:SUSC:PT:ISOLATE:ORDQN:DAYLIN 2022-01-04 17:44:00 Test Item Value Reference Range Interpretation Comments Staphylococcus aureus Staphylococcus aureus (test code = Staphylococcus aureus) [facility]2022-06-06 05:28:00 Test Item Value Reference Range Interpretation Comments Glucose Lvl (test code = Glucose Lvl) 75 70-99 [facility]2022-06-06 05:28:00 Test Item Value Reference Range Interpretation Comments BUN (test code = BUN) 54 7-22 [place] 351432-06-06 05:28:00 Test Item Value Reference Range Interpretation Comments Creatinine Lvl (test code = Creatinine 3.97 0.50-1.40 Lvl) [facility]2022-06-06 05:28:00 Test Item Value Reference Range Interpretation Comments Sodium Lvl (test code = Sodium Lvl) 140 135-145 [facility]2022-06-06 05:28:00 Test Item Value Reference Range Interpretation Comments Potassium Lvl (test code = Potassium 3.5 3.5-5.1 Lvl) [facility]2022-06-06 05:28:00 Test Item Value Reference Range Interpretation Comments Chloride Lvl (test code = Chloride Lvl) 106 95-109 [facility]2022-06-06 05:28:00 Test Item Value Reference Range Interpretation Comments CO2 (test code = CO2) 26 24-32 [facility]2022-06-06 05:28:00 Test Item Value Reference Range Interpretation Comments AGAP (test code = AGAP) 11.5 10.0-20.0 [facility]2022-06-06 05:28:00 Test Item Value Reference Range Interpretation Comments Calcium Lvl (test code = Calcium Lvl) 7.6 8.5-10.5 [place] 351432-06-06 05:28:00 Test Item Value Reference Range Interpretation Comments eGFR (test code = eGFR) 16 [place] 351432-06-06 05:28:00 Test Item Value Reference Range Interpretation Comments Magnesium Lvl (test code = Magnesium 2.3 1.8-2.4 Lvl) [place] 351432-06-06 05:28:00 Test Item Value Reference Range Interpretation Comments Phosphorus (test code = Phosphorus) 3.5 2.5-4.5 [facility] HospitalPvfgtwzJOUIYJPBWF4534-00-50 05:28:00 Test Item Value Reference Range Interpretation Comments WBC (test code = WBC) 16.0 3.7-10.4 [facility] HospitalLguykfvTAAXLBSWLM4127-78-99 05:28:00 Test Item Value Reference Range Interpretation Comments RBC (test code = RBC) 3.91 4.70-6.10 [facility] HospitalCoyjdhfDLAJYMVASB8410-60-02 05:28:00 Test Item Value Reference Range Interpretation Comments Hgb (test code = Hgb) 10.8 14.0-18.0 [facility] HospitalTswezayJMKTRDOLNJ7458-09-39 05:28:00 Test Item Value Reference Range Interpretation Comments Hct (test code = Hct) 31.7 42.0-54.0 [facility] HospitalAltofsaYVLNHXSKPR3517-48-73 05:28:00 Test Item Value Reference Range Interpretation Comments MCV (test code = MCV) 81.0 80.0-94.0 [facility] HospitalCqogxomHXDKQMWPET2046-39-14 05:28:00 Test Item Value Reference Range Interpretation Comments MCH (test code = MCH) 27.6 pg 27.0-31.0 [facility] HospitalDbkujoeODPEELJOHB8687-63-67 05:28:00 Test Item Value Reference Range Interpretation Comments MCHC (test code = MCHC) 34.0 32.0-36.0 [facility] HospitalUqfiwhzTHKZOJWHJX1837-57-12 05:28:00 Test Item Value Reference Range Interpretation Comments RDW (test code = RDW) 14.1 11.5-14.5 [facility] HospitalCxtmkkkIXYJGERNGR1341-69-77 05:28:00 Test Item Value Reference Range Interpretation Comments Platelet (test code = Platelet) 326 710-450 [facility] HospitalIyeuzavYZSZBHLPDJ7778-37-21 05:28:00 Test Item Value Reference Range Interpretation Comments MPV (test code = MPV) 7.9 7.4-10.4 [facility] HospitalBpxifrjGNLFHAKQOK8743-21-83 05:28:00 Test Item Value Reference Range Interpretation Comments PT (test code = PT) 12.8 s 12.0-14.7 [facility] HospitalAbdclloDTBWTYJJIQ7419-09-29 05:28:00 Test Item Value Reference Range Interpretation Comments INR (test code = INR) 0.97 1 0.85-1.17 [facility] HospitalVsvnnhyROXJMEOCXA7155-17-03 05:28:00 Test Item Value Reference Range Interpretation Comments PTT (test code = PTT) 54.7 s 22.9-35.8 [facility] HospitalFqmkhqkMELMLLVMRX5042-53-48 05:28:00 Test Item Value Reference Range Interpretation Comments Segs (test code = Segs) 70.6 45.0-75.0 [facility] HospitalHdbkvszASQHWQSBJZ4918-65-26 05:28:00 Test Item Value Reference Range Interpretation Comments Lymphocytes (test code = Lymphocytes) 16.3 20.0-40.0 [facility] HospitalGhpcmggVVAYXBHNLB1117-70-19 05:28:00 Test Item Value Reference Range Interpretation Comments Monocytes (test code = Monocytes) 11.0 2.0-12.0 [facility] HospitalYdbvhpiMCMHXNGYXY6704-04-13 05:28:00 Test Item Value Reference Range Interpretation Comments Eosinophils (test code = Eosinophils) 1.6 <=4.0 [facility] HospitalXfjsowlMVHWTRFCZF9769-24-24 05:28:00 Test Item Value Reference Range Interpretation Comments Basophils (test code = Basophils) 0.5 <=1.0 [facility] HospitalMvdpdxbRXZVAOHAQM7900-18-35 05:28:00 Test Item Value Reference Range Interpretation Comments Neutrophils # (test code = Neutrophils 11.3 1.5-8.1 #) [facility] HospitalNmfqhgiIVTBJFMMMO4777-79-68 05:28:00 Test Item Value Reference Range Interpretation Comments Lymphocytes # (test code = Lymphocytes 2.6 1.0-5.5 #) [facility] HospitalLfdnirvKZDIWCKDXG3442-21-42 05:28:00 Test Item Value Reference Range Interpretation Comments Monocytes # (test code = Monocytes #) 1.8 <=0.8 [facility] HospitalLfmipbwSLQONSPNOX8207-57-62 05:28:00 Test Item Value Reference Range Interpretation Comments Eosinophils # (test code = Eosinophils 0.3 <=0.5 #) [facility] HospitalFdyatgfQHHOIUPZZV3523-36-83 05:28:00 Test Item Value Reference Range Interpretation Comments Basophils # (test code = Basophils #) 0.1 <=0.2 [facility] RockPARATHYROID GLIWODY1118-60-04 05:28:00 Test Item Value Reference Range Interpretation Comments Ca Ion WB (test code = Ca Ion WB) 1.06 1.05-1.25 [facility] RockPARATHYROID WSCHJRE1129-68-83 05:28:00 Test Item Value Reference Range Interpretation Comments Ca Ion at pH 7.4 WB (test code = Ca Ion 1.08 1.05-1.25 at pH 7.4 WB) [facility] RockTaywcaaGLDTIWTIZV1952-58-34 22:00:00 Test Item Value Reference Range Interpretation Comments Plav Effect Plt (test code = Plav 31 Effect Plt) [facility] TaylorMetrol[facility] DBJAMZX3696-34-31 21:46:00 Test Item Value Reference Range Interpretation Comments ABO/Rh (test code = ABO/Rh) O NEG [facility] [employer] [id number] 21:46:00 Test Item Value Reference Range Interpretation Comments Antibody Scrn (test Negative (01/02/22 4:46 code = Antibody Scrn) PM) [facility]Red[facility] [employer] [id number] 21:46:00 Test Item Value Reference Range Interpretation Comments HS Troponin I (test code = HS Troponin 26 I) [facility] [employer] [id number] 21:46:00 Test Item Value Reference Range Interpretation Comments HS Troponin I (test code = HS Troponin 24 I) [facility] [employer] [id number] 21:46:00 Test Item Value Reference Range Interpretation Comments Glucose Lvl (test code = Glucose Lvl) 140 70-99 [facility] [employer] [id number] 21:46:00 Test Item Value Reference Range Interpretation Comments BUN (test code = BUN) 57 7-22 [facility] [place] [employer] [id number] 21:46:00 Test Item Value Reference Range Interpretation Comments Creatinine Lvl (test code = Creatinine 4.23 0.50-1.40 Lvl) [facility] [place] [employer] [id number] 21:46:00 Test Item Value Reference Range Interpretation Comments Sodium Lvl (test code = Sodium Lvl) 139 135-145 [facility] [place] [employer] [id number] 21:46:00 Test Item Value Reference Range Interpretation Comments Potassium Lvl (test code = Potassium 3.5 3.5-5.1 Lvl) [facility] [place] [employer] [id number] 21:46:00 Test Item Value Reference Range Interpretation Comments Chloride Lvl (test code = Chloride Lvl) 104 95-109 [facility] [place] 5635[place]-05 21:46:00 Test Item Value Reference Range Interpretation Comments CO2 (test code = CO2) 26 24-32 [place] 351432-06-05 21:46:00 Test Item Value Reference Range Interpretation Comments AGAP (test code = AGAP) 12.5 10.0-20.0 [place] 351432-06-05 21:46:00 Test Item Value Reference Range Interpretation Comments Calcium Lvl (test code = Calcium Lvl) 8.3 8.5-10.5 [place] 351432-06-05 21:46:00 Test Item Value Reference Range Interpretation Comments eGFR (test code = eGFR) 15 [place] 351432-06-05 21:46:00 Test Item Value Reference Range Interpretation Comments Lactic Acid Lvl (test code = Lactic 1.2 0.5-2.2 Acid Lvl) [place] 351432-06-05 21:46:00 Test Item Value Reference Range Interpretation Comments Magnesium Lvl (test code = Magnesium 2.5 1.8-2.4 Lvl) [place] 629532-06-05 21:46:00 Test Item Value Reference Range Interpretation Comments WBC (test code = WBC) 13.8 3.7-10.4 [place] 629532-06-05 21:46:00 Test Item Value Reference Range Interpretation Comments RBC (test code = RBC) 4.18 4.70-6.10 [place] [address]-06-05 21:46:00 Test Item Value Reference Range Interpretation Comments Hgb (test code = Hgb) 11.7 14.0-18.0 [place] [address]-06-05 21:46:00 Test Item Value Reference Range Interpretation Comments Hct (test code = Hct) 34.4 42.0-54.0 [place] [address]-06-05 21:46:00 Test Item Value Reference Range Interpretation Comments MCV (test code = MCV) 82.4 80.0-94.0 [place] [address]-06-05 21:46:00 Test Item Value Reference Range Interpretation Comments MCH (test code = MCH) 27.9 pg 27.0-31.0 [place] 629532-06-05 21:46:00 Test Item Value Reference Range Interpretation Comments MCHC (test code = MCHC) 33.8 32.0-36.0 [facility]qfcwrTJNVJNVYHA7385-79-15 21:46:00 Test Item Value Reference Range Interpretation Comments RDW (test code = RDW) 14.2 11.5-14.5 [place] 629532-06-05 21:46:00 Test Item Value Reference Range Interpretation Comments Platelet (test code = Platelet) 347 133-450 [facility] HospitalYugzqbxKQBMZPRAQO7304-74-62 21:46:00 Test Item Value Reference Range Interpretation Comments MPV (test code = MPV) 8.0 7.4-10.4 [place] 629532-06-05 21:46:00 Test Item Value Reference Range Interpretation Comments ACT (TEG) Rapid (test code = ACT (TEG) 97 s 86-118 Rapid) [place] 629532-06-05 21:46:00 Test Item Value Reference Range Interpretation Comments Split Point Rapid (test code = Split 0.4 min Point Rapid) [place] 629532-06-05 21:46:00 Test Item Value Reference Range Interpretation Comments R-time Rapid (test code = R-time 0.5 min 0.4-0.7 Rapid) [place] 629532-06-05 21:46:00 Test Item Value Reference Range Interpretation Comments K-time Rapid (test code = K-time 0.8 min 0.6-2.3 Rapid) [place] 629532-06-05 21:46:00 Test Item Value Reference Range Interpretation Comments Angle Rapid (test code = Angle 82 degrees 64-80 Rapid) [place] 629532-06-05 21:46:00 Test Item Value Reference Range Interpretation Comments Max Amplitude Rapid (test code = Max 78 mm 52-71 Amplitude Rapid) [place] 629532-06-05 21:46:00 Test Item Value Reference Range Interpretation Comments G-value Rapid (test code = G-value 17.4 5.0-11.6 Rapid) [place] 629532-06-05 21:46:00 Test Item Value Reference Range Interpretation Comments Estimated % Lysis Rapid (test code = 0.2 <=7.5 Estimated % Lysis Rapid) [place] 629532-06-05 21:46:00 Test Item Value Reference Range Interpretation Comments PT (test code = PT) 12.5 s 12.0-14.7 [facility] HospitalMlfyvgwWKZJBURHHE8416-79-84 21:46:00 Test Item Value Reference Range Interpretation Comments INR (test code = INR) 0.94 1 0.85-1.17 [place] 629532-06-05 21:46:00 Test Item Value Reference Range Interpretation Comments PTT (test code = PTT) 31.8 s 22.9-35.8 [facility] HospitalVdymjntKFFGZJJYHS6462-92-97 21:46:00 Test Item Value Reference Range Interpretation Comments Fibrinogen Lvl (test code = Fibrinogen 608 230-510 Lvl) [facility] HospitalWllvrrbCIMQJJHJJI4310-55-39 21:46:00 Test Item Value Reference Range Interpretation Comments ASA Effect Plt (test code = ASA Effect 375 Plt) [facility] HospitalDebdhdeBXLHEMMGZY2781-83-46 21:46:00 Test Item Value Reference Range Interpretation Comments Segs (test code = Segs) 81.6 45.0-75.0 [facility] HospitalHavmzroDGWJBLIKQV1931-45-48 21:46:00 Test Item Value Reference Range Interpretation Comments Lymphocytes (test code = Lymphocytes) 8.5 20.0-40.0 [facility] HospitalCuyuyfvVCTHRHYVNM6662-74-20 21:46:00 Test Item Value Reference Range Interpretation Comments Monocytes (test code = Monocytes) 8.6 2.0-12.0 [facility] HospitalMxrbuorSPYVNLLCZP1956-44-76 21:46:00 Test Item Value Reference Range Interpretation Comments Eosinophils (test code = Eosinophils) 0.7 <=4.0 [place] 629532-06-05 21:46:00 Test Item Value Reference Range Interpretation Comments Basophils (test code = Basophils) 0.6 <=1.0 [place] 629532-06-05 21:46:00 Test Item Value Reference Range Interpretation Comments Neutrophils # (test code = Neutrophils 11.3 1.5-8.1 #) [place] 629532-06-05 21:46:00 Test Item Value Reference Range Interpretation Comments Lymphocytes # (test code = Lymphocytes 1.2 1.0-5.5 #) [facility] HospitalFkuvnpjWVAJBJMYMZ3604-44-05 21:46:00 Test Item Value Reference Range Interpretation Comments Monocytes # (test code = Monocytes #) 1.2 <=0.8 [address]06-05 21:46:00 Test Item Value Reference Range Interpretation Comments Eosinophils # (test code = Eosinophils 0.1 <=0.5 #) [place] 629532-06-05 21:46:00 Test Item Value Reference Range Interpretation Comments Basophils # (test code = Basophils #) 0.1 <=0.2 [place] 938212-06-05 21:46:00 Test Item Value Reference Range Interpretation Comments Ca Ion WB (test code = Ca Ion WB) 0.97 1.05-1.25 [place] 938212-06-05 21:46:00 Test Item Value Reference Range Interpretation Comments Ca Ion at pH 7.4 WB (test code = Ca Ion 1.02 1.05-1.25 at pH 7.4 WB) [place] 351432-06-05 17:26:00 Test Item Value Reference Range Interpretation Comments Glucose Lvl (test code = Glucose Lvl) 261 70-99 [place] 351432-06-05 17:26:00 Test Item Value Reference Range Interpretation Comments BUN (test code = BUN) 55 7-22 [place] 351432-06-05 17:26:00 Test Item Value Reference Range Interpretation Comments Creatinine Lvl (test code = Creatinine 4.31 0.50-1.40 Lvl) [place] 351432-06-05 17:26:00 Test Item Value Reference Range Interpretation Comments Sodium Lvl (test code = Sodium Lvl) 139 135-145 [place] 351432-06-05 17:26:00 Test Item Value Reference Range Interpretation Comments Potassium Lvl (test code = Potassium 4.0 3.5-5.1 Lvl) [place] 351432-06-05 17:26:00 Test Item Value Reference Range Interpretation Comments Chloride Lvl (test code = Chloride Lvl) 104 95-109 [place] 351432-06-05 17:26:00 Test Item Value Reference Range Interpretation Comments CO2 (test code = CO2) 27 24-32 [place] 351432-06-05 17:26:00 Test Item Value Reference Range Interpretation Comments Calcium Lvl (test code = Calcium Lvl) 8.3 8.5-10.5 [place] 351432-06-05 17:26:00 Test Item Value Reference Range Interpretation Comments AGAP (test code = AGAP) 12.0 10.0-20.0 [facility]2022-06-05 17:26:00 Test Item Value Reference Range Interpretation Comments eGFR (test code = eGFR) 14 [facility] HospitalXwugarjTWKMTYDBMR1880-45-01 06:45:00 Test Item Value Reference Range Interpretation Comments WBC (test code = WBC) 14.2 3.7-10.4 [place] 629532-06-05 06:45:00 Test Item Value Reference Range Interpretation Comments RBC (test code = RBC) 4.63 4.70-6.10 [place] [address]-06-05 06:45:00 Test Item Value Reference Range Interpretation Comments Hgb (test code = Hgb) 12.8 14.0-18.0 [place] 629532-06-05 06:45:00 Test Item Value Reference Range Interpretation Comments Hct (test code = Hct) 38.2 42.0-54.0 [place] 629532-06-05 06:45:00 Test Item Value Reference Range Interpretation Comments MCV (test code = MCV) 82.4 80.0-94.0 [place] 629532-06-05 06:45:00 Test Item Value Reference Range Interpretation Comments MCH (test code = MCH) 27.6 pg 27.0-31.0 [place] 629532-06-05 06:45:00 Test Item Value Reference Range Interpretation Comments MCHC (test code = MCHC) 33.5 32.0-36.0 [place] 629532-06-05 06:45:00 Test Item Value Reference Range Interpretation Comments RDW (test code = RDW) 14.1 11.5-14.5 [place] 629532-06-05 06:45:00 Test Item Value Reference Range Interpretation Comments Platelet (test code = Platelet) 359 133-450 [facility] HospitalUvkyvljSELSRUKGUB1473-04-92 06:45:00 Test Item Value Reference Range Interpretation Comments MPV (test code = MPV) 7.7 7.4-10.4 [place] 629532-06-05 06:45:00 Test Item Value Reference Range Interpretation Comments Segs (test code = Segs) 71.7 45.0-75.0 [facility] HospitalLnvcyeeJSCPWOHKKN1127-37-80 06:45:00 Test Item Value Reference Range Interpretation Comments Lymphocytes (test code = Lymphocytes) 15.9 20.0-40.0 [facility] HospitalJutulzzYICMHFPOVO8957-89-86 06:45:00 Test Item Value Reference Range Interpretation Comments Monocytes (test code = Monocytes) 9.7 2.0-12.0 [place] 629532-06-05 06:45:00 Test Item Value Reference Range Interpretation Comments Eosinophils (test code = Eosinophils) 1.9 <=4.0 [facility] HospitalMfytkyrVGBAVPEZHD5949-70-75 06:45:00 Test Item Value Reference Range Interpretation Comments Basophils (test code = Basophils) 0.8 <=1.0 [facility] HospitalLstcgkiXMAOMJRMMV3951-51-51 06:45:00 Test Item Value Reference Range Interpretation Comments Neutrophils # (test code = Neutrophils 10.2 1.5-8.1 #) [facility] HospitalOijccpoURZCLEIWVG8106-89-82 06:45:00 Test Item Value Reference Range Interpretation Comments Lymphocytes # (test code = Lymphocytes 2.3 1.0-5.5 #) [facility] HospitalIipeqggFADIHMYFRH7563-27-08 06:45:00 Test Item Value Reference Range Interpretation Comments Monocytes # (test code = Monocytes #) 1.4 <=0.8 [place] 629532-06-05 06:45:00 Test Item Value Reference Range Interpretation Comments Eosinophils # (test code = Eosinophils 0.3 <=0.5 #) [facility] HospitalEeszacyWCNNFMQFTW7573-25-73 06:45:00 Test Item Value Reference Range Interpretation Comments Basophils # (test code = Basophils #) 0.1 <=0.2 [facility]2022-06-04 21:54:00 Test Item Value Reference Range Interpretation Comments UA Protein (test code = UA >=300 mg/dL Protein) [facility] AND [id number] 21:54:00 Test Item Value Reference Range Interpretation Comments UA Glucose (test code = UA Glucose) 500 mg/dL [facility]2022-06-04 21:54:00 Test Item Value Reference Range Interpretation Comments UA Ketones (test code = UA Negative mg/dL Ketones) [facility]2022-06-04 21:54:00 Test Item Value Reference Range Interpretation Comments UA Bili (test code = Negative *NA*(01/01/22 UA Bili) 4:54 PM) [facility] [id number] 21:54:00 Test Item Value Reference Range Interpretation Comments UA Blood (test code = Small *ABN*(01/01/22 UA Blood) 4:54 PM) [facility] [id number] 21:54:00 Test Item Value Reference Range Interpretation Comments UA Urobilinogen (test code = UA no gt 0.1-1.0 Urobilinogen) [facility] [id number] 21:54:00 Test Item Value Reference Range Interpretation Comments UA Nitrite (test code Negative (01/01/22 4:54 = UA Nitrite) PM) [facility] [id number] 21:54:00 Test Item Value Reference Range Interpretation Comments UA Leuk Est (test Negative (01/01/22 4:54 code = UA Leuk Est) PM) [facility] [id number] 21:54:00 Test Item Value Reference Range Interpretation Comments UA Sq Epi (test code = UA Sq Occasional /LPF Epi) [facility] [id number] 21:54:00 Test Item Value Reference Range Interpretation Comments UA WBC (test code = UA WBC) 5 <=5 [facility] [id number] 21:54:00 Test Item Value Reference Range Interpretation Comments UA RBC (test code = UA RBC) 2 <=2 [facility] [id number] 21:54:00 Test Item Value Reference Range Interpretation Comments UA Bacteria (test code = UA Occasional /HPF Bacteria) [facility] [id number] 21:54:00 Test Item Value Reference Range Interpretation Comments UA Mucus (test code = UA Mucus) Few /LPF [facility] [id number] 21:54:00 Test Item Value Reference Range Interpretation Comments UA Renal Epi (test code = UA Renal Epi) 6 [facility] [id number] 21:54:00 Test Item Value Reference Range Interpretation Comments UA Amorph Alyssa (test code = Occasional /HPF UA Amorph Alyssa) [facility] [id number] 21:54:00 Test Item Value Reference Range Interpretation Comments UA Gran Cast (test code = UA Gran 0-2 /LPF Cast) [facility] [id number] 21:54:00 Test Item Value Reference Range Interpretation Comments UA Color (test code = Yellow *NA*(01/01/22 4:54 UA Color) PM) [facility] [id number] 21:54:00 Test Item Value Reference Range Interpretation Comments UA Turbidity (test code Slight *ABN*(01/01/22 = UA Turbidity) 4:54 PM) [facility] [id number] 21:54:00 Test Item Value Reference Range Interpretation Comments UA Spec Grav (test code = UA Spec 1.025 1 Grav) [facility] AND [id number] 21:54:00 Test Item Value Reference Range Interpretation Comments UA pH (test code = UA pH) 5.0 1 5.0-8.0 [facility] ZOUXQXP8853-75-05 07:01:00 Test Item Value Reference Range Interpretation Comments Total CK (test code = Total CK) 701 12-191 [facility] [place] [id number] 08:14:00 Test Item Value Reference Range Interpretation Comments B/C Ratio (test code = B/C Ratio) 11 1 6-25 [facility] [place] [id number] 08:14:00 Test Item Value Reference Range Interpretation Comments Total Protein (test code = Total 6.2 6.4-8.4 Protein) [facility] [place] [id number] 08:14:00 Test Item Value Reference Range Interpretation Comments Albumin Lvl (test code = Albumin Lvl) 2.4 3.5-5.0 [facility] [place] [id number] 08:14:00 Test Item Value Reference Range Interpretation Comments Globulin (test code = Globulin) 3.8 2.7-4.2 [facility] [place] [id number] 08:14:00 Test Item Value Reference Range Interpretation Comments A/G Ratio (test code = A/G Ratio) 0.6 1 0.7-1.6 [facility] [place] [id number] 08:14:00 Test Item Value Reference Range Interpretation Comments ALT (test code = ALT) 33 <=65 [facility] [place] [id number] 08:14:00 Test Item Value Reference Range Interpretation Comments AST (test code = AST) 26 <=37 [facility] [id number] 08:14:00 Test Item Value Reference Range Interpretation Comments Alk Phos (test code = Alk Phos) 153 39-136 [facility]2022-06-03 08:14:00 Test Item Value Reference Range Interpretation Comments Bili Total (test code = Bili Total) 0.4 0.2-1.3 [facility] AND [id number] 22:38:00 Test Item Value Reference Range Interpretation Comments UA Color (test code = Light Yellow UA Color) *NA*(12/30/21 5:38 PM) [facility] AND [id number] 22:38:00 Test Item Value Reference Range Interpretation Comments UA Turbidity (test code = Clear (12/30/21 5:38 UA Turbidity) PM) [facility] AND [id number] 22:38:00 Test Item Value Reference Range Interpretation Comments UA Spec Grav (test code = UA Spec 1.031 1 Grav) [facility] AND [id number] 22:38:00 Test Item Value Reference Range Interpretation Comments UA pH (test code = UA pH) 6.0 1 5.0-8.0 [facility] AND [id number] 22:38:00 Test Item Value Reference Range Interpretation Comments UA Protein (test code = UA >=300 mg/dL Protein) [facility] AND [id number] 22:38:00 Test Item Value Reference Range Interpretation Comments UA Glucose (test code = UA Glucose) 500 mg/dL [facility] AND [id number] 22:38:00 Test Item Value Reference Range Interpretation Comments UA Ketones (test code = UA Trace mg/dL Ketones) [facility] AND [id number] 22:38:00 Test Item Value Reference Range Interpretation Comments UA Bili (test code = Negative *NA*(12/30/21 UA Bili) 5:38 PM) [facility] AND [id number] 22:38:00 Test Item Value Reference Range Interpretation Comments UA Blood (test code = Small *ABN*(12/30/21 UA Blood) 5:38 PM) [facility] AND [id number] 22:38:00 Test Item Value Reference Range Interpretation Comments UA Urobilinogen (test code = UA no gt 0.1-1.0 Urobilinogen) [facility] AND [id number] 22:38:00 Test Item Value Reference Range Interpretation Comments UA Nitrite (test code Negative (12/30/21 5:38 = UA Nitrite) PM) [facility] AND [id number] 22:38:00 Test Item Value Reference Range Interpretation Comments UA Leuk Est (test Negative (12/30/21 5:38 code = UA Leuk Est) PM) [facility] AND [id number] 22:38:00 Test Item Value Reference Range Interpretation Comments UA WBC (test code = UA WBC) 1 <=5 [facility] [id number] 22:38:00 Test Item Value Reference Range Interpretation Comments UA RBC (test code = UA RBC) 1 <=2 [facility] AND [id number] 22:38:00 Test Item Value Reference Range Interpretation Comments UA [place] Yeast (test code = UA Occasional /HPF [place] Yeast) [facility] AND [id number] 22:38:00 Test Item Value Reference Range Interpretation Comments UA Sq Epi (test code = UA Sq Epi) None Seen [facility] RockXgkadvxFYNWFGUZDP8044-47-36 22:05:00 Test Item Value Reference Range Interpretation Comments Treponemal Ab (test code Non-Reactive = Treponemal Ab) *NA*(12/30/21 5:05 PM) [facility] TaylorUxwqbbmVJQRAP6215-64-84 22:05:00 Test Item Value Reference Range Interpretation Comments Trig (test code = Trig) 187 [facility] RockZmhfruuRJGCQA9343-94-75 22:05:00 Test Item Value Reference Range Interpretation Comments Chol (test code = Chol) 178 [facility] RockQujebozBMDURV9636-95-82 22:05:00 Test Item Value Reference Range Interpretation Comments HDL (test code = HDL) 40 [facility] RockQyqwyrqPAHYXI6378-93-41 22:05:00 Test Item Value Reference Range Interpretation Comments CHD Risk (test code = CHD Risk) 4.45 1 4.00-7.30 [facility] TaylorFktfmdwFUMNHX0805-71-04 22:05:00 Test Item Value Reference Range Interpretation Comments LDL (Calculated) (test code = LDL 101 (Calculated)) [facility] RockDykddseCXQHGG7888-92-50 22:05:00 Test Item Value Reference Range Interpretation Comments VLDL (test code = VLDL) 37 1 [facility] RockSPECIAL [id number] 22:05:00 Test Item Value Reference Range Interpretation Comments Hgb A1C (test code = Hgb A1C) 9.4 [facility] [id number] 15:46:00 Test Item Value Reference Range Interpretation Comments Coronavirus (COVID-19) Not Detected (12/30/21 JING (test code = 10:46 AM) Coronavirus (COVID-19) JING) [facility] RockZwqlfntWQKJWNJOLU3835-39-60 15:25:00 Test Item Value Reference Range Interpretation Comments [facility] HIV 4th GEN (test Negative *NA*(12/30/21 code = CDC HIV 4th 10:25 AM) GEN) [facility] RockCARDIAC [id number] 14:44:51 Test Item Value Reference Range Interpretation Comments Total CK (test code = Total CK) 710 12-191 [facility] RockAojwaiwTTWYVLTRRC2550-69-93 14:44:51 Test Item Value Reference Range Interpretation Comments PT (test code = PT) 11.7 s 12.0-14.7 [facility] RockFdfvpuiKXVSWFQSQM4485-27-55 14:44:51 Test Item Value Reference Range Interpretation Comments INR (test code = INR) 0.87 1 0.85-1.17 [facility] RockGwgmeueTUCTAYDPAJ0763-19-65 14:44:51 Test Item Value Reference Range Interpretation Comments PTT (test code = PTT) 33.1 s 22.9-35.8 [facility] TaylorRetrophin [id number] 10:57:00 Test Item Value Reference Range Interpretation Comments Magnesium Lvl (test code = Magnesium 2.0 1.8-2.4 Lvl) [facility] [place] [id number] 10:57:00 Test Item Value Reference Range Interpretation Comments Calcium Lvl (test code = Calcium Lvl) 8.2 8.5-10.5 [facility] [place] [id number] 10:57:00 Test Item Value Reference Range Interpretation Comments Chloride Lvl (test code = Chloride Lvl) 103 95-109 [facility] [place] [id number] 10:57:00 Test Item Value Reference Range Interpretation Comments CO2 (test code = CO2) 29 24-32 [facility]2015-12-09 10:57:00 Test Item Value Reference Range Interpretation Comments AGAP (test code = AGAP) 10.9 10.0-20.0 [facility]2015-12-09 10:57:00 Test Item Value Reference Range Interpretation Comments Sodium Lvl (test code = Sodium Lvl) 138 135-145 [facility]2015-12-09 10:57:00 Test Item Value Reference Range Interpretation Comments Glucose Lvl (test code = Glucose Lvl) 168 70-99 [facility]2015-12-09 10:57:00 Test Item Value Reference Range Interpretation Comments BUN (test code = BUN) 24 7-22 [facility]2015-12-09 10:57:00 Test Item Value Reference Range Interpretation Comments Potassium Lvl (test code = Potassium 4.9 3.5-5.1 Lvl) [facility]2015-12-09 10:57:00 Test Item Value Reference Range Interpretation Comments eGFR (test code = eGFR) 73 [facility]2015-12-09 10:57:00 Test Item Value Reference Range Interpretation Comments Creatinine Lvl (test code = Creatinine 1.18 0.50-1.40 Lvl) [facility]WwzxptzZORCUGYBNI6052-46-75 10:57:00 Test Item Value Reference Range Interpretation Comments MPV (test code = MPV) 8.0 7.4-10.4 [facility] HospitalVfuqusiUXVRDPKFAH6769-80-68 10:57:00 Test Item Value Reference Range Interpretation Comments MCHC (test code = MCHC) 32.5 32.0-36.0 [facility] HospitalDwtsmovNRXCDCQPAZ7045-82-35 10:57:00 Test Item Value Reference Range Interpretation Comments MCH (test code = MCH) 27.4 pg 27.0-31.0 [facility] HospitalExmhhjfOESTGYRDQW5780-45-11 10:57:00 Test Item Value Reference Range Interpretation Comments Platelet (test code = Platelet) 316 133-450 [facility] HospitalAyoxijyAPZGAJXGHY9786-87-50 10:57:00 Test Item Value Reference Range Interpretation Comments RDW (test code = RDW) 13.8 11.5-14.5 [facility] HospitalEfaqorqPESJLHVQSZ8195-96-80 10:57:00 Test Item Value Reference Range Interpretation Comments MCV (test code = MCV) 84.1 80.0-94.0 [facility] HospitalJglikkaASDDTCIVRB7331-14-63 10:57:00 Test Item Value Reference Range Interpretation Comments Hgb (test code = Hgb) 12.7 14.0-18.0 [facility] HospitalJnotubtSDIADJTMDJ0543-84-71 10:57:00 Test Item Value Reference Range Interpretation Comments RBC (test code = RBC) 4.63 4.70-6.10 [facility] HospitalLhpbawqUSNWSJKCHB1659-17-77 10:57:00 Test Item Value Reference Range Interpretation Comments Hct (test code = Hct) 38.9 42.0-54.0 [facility] HospitalTdyjkijQFYQTCPSWW0276-87-87 10:57:00 Test Item Value Reference Range Interpretation Comments WBC (test code = WBC) 9.4 3.7-10.4 [facility] HospitalNvkojpzFVYDRFAEWE5053-60-42 10:57:00 Test Item Value Reference Range Interpretation Comments Basophils # (test code = Basophils #) 0.1 <=0.2 [facility] HospitalHsotodmOZDHYZZSIH7269-62-87 10:57:00 Test Item Value Reference Range Interpretation Comments Monocytes # (test code = Monocytes #) 0.9 <=0.8 [facility] HospitalVkaskbxRKEQWOBFLC8521-65-42 10:57:00 Test Item Value Reference Range Interpretation Comments Lymphocytes # (test code = Lymphocytes 3.8 1.0-5.5 #) [facility] HospitalPjpclrfRZMLLKHOEW2671-11-68 10:57:00 Test Item Value Reference Range Interpretation Comments Eosinophils # (test code = Eosinophils 0.6 <=0.5 #) [facility] HospitalQobknniRSPQPCOGYS6072-28-90 10:57:00 Test Item Value Reference Range Interpretation Comments Eosinophils (test code = Eosinophils) 6.6 <=4.0 [facility] HospitalHdpbeexTLNMFATWYF0878-73-36 10:57:00 Test Item Value Reference Range Interpretation Comments Basophils (test code = Basophils) 1.3 <=1.0 [facility] HospitalPwokbgkLHNFUALJLR2000-26-66 10:57:00 Test Item Value Reference Range Interpretation Comments Segs-Bands # (test code = Segs-Bands #) 4.0 1.5-8.1 [facility] HospitalQmvpqwaZWTWJQKSEX5933-33-65 10:57:00 Test Item Value Reference Range Interpretation Comments Segs (test code = Segs) 42.4 45.0-75.0 [facility] HospitalJpozxvjQNGOFKBZER5363-08-29 10:57:00 Test Item Value Reference Range Interpretation Comments Lymphocytes (test code = Lymphocytes) 39.9 20.0-40.0 [facility] HospitalXlpbyfsEMHRKTPMVF8203-22-04 10:57:00 Test Item Value Reference Range Interpretation Comments Monocytes (test code = Monocytes) 9.8 2.0-12.0 [facility]LAIGE7934-52-91 10:57:00 Test Item Value Reference Range Interpretation Comments CHD Risk (test code = CHD Risk) 5.50 4.00-7.30 [facility]LpuirkxLUUMUQ2534-11-34 10:57:00 Test Item Value Reference Range Interpretation Comments VLDL (test code = VLDL) 35 [facility]KxkpprfMFQROJ3312-99-61 10:57:00 Test Item Value Reference Range Interpretation Comments LDL (Calculated) (test code = LDL 109 (Calculated)) [facility]QytwloiDYZZBO0598-65-77 10:57:00 Test Item Value Reference Range Interpretation Comments HDL (test code = HDL) 32 [facility]WrudtrnXTAWRI9160-25-65 10:57:00 Test Item Value Reference Range Interpretation Comments Chol (test code = Chol) 176 [facility]entonRdzdzlmZLKIIS2498-14-94 10:57:00 Test Item Value Reference Range Interpretation Comments Trig (test code = Trig) 176 [facility]JztvyzeSIOKHC8144-60-66 19:49:00 Test Item Value Reference Range Interpretation Comments LDL (Calculated) (test code = LDL 115 (Calculated)) [facility]entonFvrdckgSOCOKI5985-52-49 19:49:00 Test Item Value Reference Range Interpretation Comments VLDL (test code = VLDL) 31 [facility]entonEnfulagAQNTXX8777-58-15 19:49:00 Test Item Value Reference Range Interpretation Comments HDL (test code = HDL) 37 [facility]JmciqjePCBZKP4272-88-75 19:49:00 Test Item Value Reference Range Interpretation Comments CHD Risk (test code = CHD Risk) 4.95 4.00-7.30 [facility]entonLleqlswURPDHQ6232-68-06 19:49:00 Test Item Value Reference Range Interpretation Comments Chol (test code = Chol) 183 [facility]HjmcgwxGZKFHQ5877-34-40 19:49:00 Test Item Value Reference Range Interpretation Comments Trig (test code = Trig) 156 [facility]WellAppsPSYCHIATRIC AOHJEAD9057-05-42 13:56:00 Test Item Value Reference Range Interpretation Comments CK MB Index (test code = CK MB Index) 1.3 <=2.5 [facility] KLYJXAN5828-13-41 13:56:00 Test Item Value Reference Range Interpretation Comments Troponin-I (test code = Troponin-I) no gt <=0.40 [facility] ZSGVQWM4458-34-20 13:56:00 Test Item Value Reference Range Interpretation Comments CK MB (test code = CK MB) 5.2 0.5-3.6 [facility] WKPXSEK2142-32-98 13:56:00 Test Item Value Reference Range Interpretation Comments Total CK (test code = Total CK) 413 12-191 [facility] ServicesCnwbcywKVXCXYTNOYPJ9177-11-77 13:56:00 Test Item Value Reference Range Interpretation Comments AGAP (test code = AGAP) 10.4 10.0-20.0 [facility]IuqhvkiDDGAXNKJQGZX7864-32-25 13:56:00 Test Item Value Reference Range Interpretation Comments AST (test code = AST) 34 <=37 [facility] CenterIiqlkcvNGAVGRQVAKJV7947-32-74 13:56:00 Test Item Value Reference Range Interpretation Comments Total Protein (test code = Total 7.0 6.4-8.4 Protein) [facility] CenterNmhumrlVGIHLTKCXZOO4428-70-06 13:56:00 Test Item Value Reference Range Interpretation Comments Bili Total (test code = Bili Total) 0.3 0.2-1.3 [facility] CenterDmoiqwfQGCQEQXXRCHK7373-11-16 13:56:00 Test Item Value Reference Range Interpretation Comments CO2 (test code = CO2) 26 24-32 [facility] CenterOmlfmtsZEXUAELQBQYJ0228-84-75 13:56:00 Test Item Value Reference Range Interpretation Comments Calcium Lvl (test code = Calcium Lvl) 8.2 8.5-10.5 [facility] CenterPomxilsYPMDJGKTYFHD8169-11-62 13:56:00 Test Item Value Reference Range Interpretation Comments Potassium Lvl (test code = Potassium 4.4 3.5-5.1 Lvl) [facility] CenterJuozaqlOPAZRGFNINRE8855-01-14 13:56:00 Test Item Value Reference Range Interpretation Comments Chloride Lvl (test code = Chloride Lvl) 107 95-109 [facility]bpzksbKGQODGBLFWER7991-57-52 13:56:00 Test Item Value Reference Range Interpretation Comments eGFR (test code = eGFR) 80 [facility] SystemQuufbvhSGHWNXICGSKZ2921-24-89 13:56:00 Test Item Value Reference Range Interpretation Comments B/C Ratio (test code = B/C Ratio) 16 6-25 [facility] SystemXyttjsnXZWCOXWYAEHS8619-81-73 13:56:00 Test Item Value Reference Range Interpretation Comments Globulin (test code = Globulin) 3.7 2.0-4.0 [facility] SystemYzhybtuMNWCHHFIIPZD9396-40-62 13:56:00 Test Item Value Reference Range Interpretation Comments A/G Ratio (test code = A/G Ratio) 0.9 0.7-1.6 [facility] SystemPdcedllDOJYKAMLUPFT3842-87-81 13:56:00 Test Item Value Reference Range Interpretation Comments Albumin Lvl (test code = Albumin Lvl) 3.3 3.5-5.0 [facility] SystemPupgeqoPPIVGIYLOSRL5528-61-62 13:56:00 Test Item Value Reference Range Interpretation Comments Alk Phos (test code = Alk Phos) 134 39-136 [facility] SystemJgtzevmMGRBMGEWFSJV0240-18-67 13:56:00 Test Item Value Reference Range Interpretation Comments ALT (test code = ALT) 49 <=65 [facility] SystemJnifuomLSFFYTWUDTJB7016-00-60 13:56:00 Test Item Value Reference Range Interpretation Comments Glucose Lvl (test code = Glucose Lvl) 103 70-99 [facility] SystemOjhlazgOVFQYAKDOFUL4341-03-42 13:56:00 Test Item Value Reference Range Interpretation Comments BUN (test code = BUN) 17 7-22 [facility] SystemIxlulmyYUSZJRSNUUSC1562-35-71 13:56:00 Test Item Value Reference Range Interpretation Comments Sodium Lvl (test code = Sodium Lvl) 139 135-145 [facility] SystemQspryheCSVWEMRPZPOK1885-40-10 13:56:00 Test Item Value Reference Range Interpretation Comments Creatinine Lvl (test code = Creatinine 1.09 0.50-1.40 Lvl) [facility] HospitalJbrbbsrIWQAOCYSCD9424-37-89 13:56:00 Test Item Value Reference Range Interpretation Comments Segs-Bands # (test code = Segs-Bands #) 9.0 1.5-8.1 [facility] HospitalBolosrqEDBPVXOCTS6598-24-61 13:56:00 Test Item Value Reference Range Interpretation Comments Lymphocytes # (test code = Lymphocytes 1.7 1.0-5.5 #) [facility] HospitalJzpyrncZDFGXLEZUN8288-74-85 13:56:00 Test Item Value Reference Range Interpretation Comments Basophils (test code = Basophils) 0.6 <=1.0 [place] 925055-12-08 13:56:00 Test Item Value Reference Range Interpretation Comments Eosinophils (test code = Eosinophils) 0.8 <=4.0 [facility] HospitalCivjpufXEHPNXWJHS3739-64-91 13:56:00 Test Item Value Reference Range Interpretation Comments Basophils # (test code = Basophils #) 0.1 <=0.2 [facility] HospitalWdhttrrJSDTNQIQQP4841-12-24 13:56:00 Test Item Value Reference Range Interpretation Comments Monocytes # (test code = Monocytes #) 0.7 <=0.8 [place] 925055-12-08 13:56:00 Test Item Value Reference Range Interpretation Comments Eosinophils # (test code = Eosinophils 0.1 <=0.5 #) [facility] HospitalTbddspfQTIVERUEDL0993-26-89 13:56:00 Test Item Value Reference Range Interpretation Comments Segs (test code = Segs) 77.7 45.0-75.0 [facility] HospitalXfhlrreACNVLGVAOD3901-49-54 13:56:00 Test Item Value Reference Range Interpretation Comments Lymphocytes (test code = Lymphocytes) 14.6 20.0-40.0 [place] 925055-12-08 13:56:00 Test Item Value Reference Range Interpretation Comments Monocytes (test code = Monocytes) 6.3 2.0-12.0 [facility] HospitalWgfaccbBFRZEGZACP9628-15-26 13:56:00 Test Item Value Reference Range Interpretation Comments INR (test code = INR) 0.90 0.85-1.17 [facility] HospitalLboyfyaNYTAFLEVLX9990-32-35 13:56:00 Test Item Value Reference Range Interpretation Comments PT (test code = PT) 12.5 s 12.0-14.7 [facility] HospitalVpbgnkfSUUVQEGVQD8996-89-38 13:56:00 Test Item Value Reference Range Interpretation Comments MPV (test code = MPV) 7.5 7.4-10.4 [facility] HospitalBqyskugABBFESKFRF7860-15-68 13:56:00 Test Item Value Reference Range Interpretation Comments RBC (test code = RBC) 5.18 4.70-6.10 [facility] HospitalVuptlmbIKFWQZHADL8267-87-33 13:56:00 Test Item Value Reference Range Interpretation Comments Hgb (test code = Hgb) 13.9 14.0-18.0 [facility] HospitalRgxputkMMWTGJIFLD1166-52-64 13:56:00 Test Item Value Reference Range Interpretation Comments WBC (test code = WBC) 11.6 3.7-10.4 [facility] HospitalAcufsttPPNITSOOQE3613-21-37 13:56:00 Test Item Value Reference Range Interpretation Comments Hct (test code = Hct) 43.6 42.0-54.0 [facility] HospitalJzlbbkiUUNZNSWQWO6509-75-92 13:56:00 Test Item Value Reference Range Interpretation Comments MCV (test code = MCV) 84.1 80.0-94.0 [facility] HospitalWpugwjdBCROGWMZCD6251-56-98 13:56:00 Test Item Value Reference Range Interpretation Comments Platelet (test code = Platelet) 348 133-450 [facility] HospitalOclruxfEKGDRLORNB6458-83-33 13:56:00 Test Item Value Reference Range Interpretation Comments MCHC (test code = MCHC) 32.0 32.0-36.0 [facility] HospitalSewkfrxNLYGUIIFOR8451-22-03 13:56:00 Test Item Value Reference Range Interpretation Comments RDW (test code = RDW) 13.9 11.5-14.5 [facility] HospitalIvglrxlOAIELSGVQF1476-08-52 13:56:00 Test Item Value Reference Range Interpretation Comments MCH (test code = MCH) 26.9 pg 27.0-31.0 [facility] HospitalSliexdwLEQTTPKJHO1638-99-30 13:56:00 Test Item Value Reference Range Interpretation Comments PTT (test code = PTT) 34.9 s 22.9-35.8 [facility]LmqlvusHQWPIRCRDRMX0136-29-15 10:00:00 Test Item Value Reference Range Interpretation Comments AGAP (test code = AGAP) 13.2 10.0-20.0 [facility] SystemCtciybwHNFSSFUOZWXS7479-71-10 10:00:00 Test Item Value Reference Range Interpretation Comments BUN (test code = BUN) 16 7-22 [facility] SystemMacymboJAWMLMEUWFEU6844-48-34 10:00:00 Test Item Value Reference Range Interpretation Comments Glucose Lvl (test code = Glucose Lvl) 116 70-99 [facility] SystemTultifqMLZUXTBXVTQW8201-84-91 10:00:00 Test Item Value Reference Range Interpretation Comments CO2 (test code = CO2) 28 24-32 [facility] SystemEqaxcvqJGLSFQKBTJWY0731-84-19 10:00:00 Test Item Value Reference Range Interpretation Comments eGFR (test code = eGFR) 89 [facility] SystemUgsdargVGLJFBVHMORN8602-30-53 10:00:00 Test Item Value Reference Range Interpretation Comments Creatinine Lvl (test code = Creatinine 1.0 0.5-1.4 Lvl) [facility] SystemHyycnnsODXYUVYUJWFA1483-77-03 10:00:00 Test Item Value Reference Range Interpretation Comments Sodium Lvl (test code = Sodium Lvl) 139 135-145 [facility] SystemAyjtqhrHWLJXKEPAIRV7274-99-83 10:00:00 Test Item Value Reference Range Interpretation Comments Calcium Lvl (test code = Calcium Lvl) 8.5 8.5-10.5 [facility] SystemSaseajlKIDWSENWSWLY2469-76-63 10:00:00 Test Item Value Reference Range Interpretation Comments Potassium Lvl (test code = Potassium 4.2 3.5-5.1 Lvl) [facility] SystemBbwhjjzYWHUOYYOJGOF7631-58-78 10:00:00 Test Item Value Reference Range Interpretation Comments Chloride Lvl (test code = Chloride Lvl) 102 95-109 [facility] HospitalJtdizklTXYDIDHPMK4458-08-63 10:00:00 Test Item Value Reference Range Interpretation Comments MPV (test code = MPV) 6.7 7.4-10.4 [facility] HospitalBzkvgzyQNZEVNECJP5872-63-46 10:00:00 Test Item Value Reference Range Interpretation Comments Platelet (test code = Platelet) 354 133-450 [facility] HospitalFvbdyduMTDFMEWDSW0000-96-61 10:00:00 Test Item Value Reference Range Interpretation Comments RDW (test code = RDW) 17.6 11.5-14.5 [facility] HospitalExpuiqkXAUTYDCOBG5451-80-57 10:00:00 Test Item Value Reference Range Interpretation Comments MCHC (test code = MCHC) 33.7 32.0-36.0 [facility] HospitalRyigvmaJUCDCLZCDJ3840-85-10 10:00:00 Test Item Value Reference Range Interpretation Comments MCH (test code = MCH) 26.9 pg 27.0-31.0 [facility] HospitalYwspmokBQVSCXHDAT5286-20-60 10:00:00 Test Item Value Reference Range Interpretation Comments RBC (test code = RBC) 3.47 4.70-6.10 [facility] HospitalAnacjoxPQXZLOUDUR4288-25-24 10:00:00 Test Item Value Reference Range Interpretation Comments WBC (test code = WBC) 9.8 3.7-10.4 [facility] HospitalAqcxsvzDTDBMPEKYZ2132-78-94 10:00:00 Test Item Value Reference Range Interpretation Comments MCV (test code = MCV) 79.8 80.0-94.0 [facility] HospitalTnlwgniGAQBXLEYYU9482-04-79 10:00:00 Test Item Value Reference Range Interpretation Comments Hct (test code = Hct) 27.7 42.0-54.0 [facility] HospitalBogkbexSDCCJTQORC0500-20-55 10:00:00 Test Item Value Reference Range Interpretation Comments Hgb (test code = Hgb) 9.3 14.0-18.0 [facility] HospitalIqlgnepUMJNQDMMPR1493-80-37 10:00:00 Test Item Value Reference Range Interpretation Comments Microcyte (test code = 1+ *ABN*(12/08/14 Microcyte) 5:00 AM) [facility] HospitalWenmrucLTTIRCAQGG3645-30-81 10:00:00 Test Item Value Reference Range Interpretation Comments Basophils # (test code = Basophils #) 0.1 <=0.2 [facility] HospitalEtmyuazMNFIZCUMHE5026-05-24 10:00:00 Test Item Value Reference Range Interpretation Comments Monocytes (test code = Monocytes) 14.5 2.0-12.0 [facility] HospitalAbwzfkoVKDBYDQYVN5378-09-57 10:00:00 Test Item Value Reference Range Interpretation Comments Lymphocytes # (test code = Lymphocytes 3.2 1.0-5.5 #) [facility] HospitalHqflqtuLAJFMHDRWE0900-27-54 10:00:00 Test Item Value Reference Range Interpretation Comments Monocytes # (test code = Monocytes #) 1.4 <=0.8 [facility] HospitalYfdfaraGUKPXVKEYJ7614-51-53 10:00:00 Test Item Value Reference Range Interpretation Comments Eosinophils # (test code = Eosinophils 0.6 <=0.5 #) [facility] HospitalPnottrpUUKNTEAWGH1298-12-50 10:00:00 Test Item Value Reference Range Interpretation Comments Segs (test code = Segs) 46.3 45.0-75.0 [facility] HospitalBovhuebFICGUACSVJ7277-95-45 10:00:00 Test Item Value Reference Range Interpretation Comments Plt Morph (test code = Normal (12/08/14 5:00 Plt Morph) AM) [facility] HospitalUprerzuDPMTOSVXWX0047-31-78 10:00:00 Test Item Value Reference Range Interpretation Comments Basophils (test code = Basophils) 1.1 <=1.0 [facility] HospitalZpszulcAJWOICNAVF0888-84-91 10:00:00 Test Item Value Reference Range Interpretation Comments Segs-Bands # (test code = Segs-Bands #) 4.6 1.5-8.1 [facility] HospitalJppigoaQNVMACFFLO7359-26-37 10:00:00 Test Item Value Reference Range Interpretation Comments Eosinophils (test code = Eosinophils) 6.1 <=4.0 [facility] HospitalPzrqnkbGOYYVEUSXR8583-80-40 10:00:00 Test Item Value Reference Range Interpretation Comments Lymphocytes (test code = Lymphocytes) 32.0 20.0-40.0 [facility] RockUfondpvHSDGGYDZJT6346-96-00 10:00:00 Test Item Value Reference Range Interpretation Comments CRP, High Sensitivity (test code = CRP, 57.7 High Sensitivity) [place] 92416015-05-10 22:28:00 Test Item Value Reference Range Interpretation Comments Vanco Tr TND (test code = Vanco Tr TND) 1800 [place] 92416015-05-10 22:28:00 Test Item Value Reference Range Interpretation Comments Vanco Tr (test code = Vanco Tr) 17.7 [facility]2015-05-10 08:34:00 Test Item Value Reference Range Interpretation Comments eGFR (test code = eGFR) 65 [facility]2015-05-10 08:34:00 Test Item Value Reference Range Interpretation Comments Potassium Lvl (test code = Potassium 5.1 3.5-5.1 Lvl) [facility]2015-05-10 08:34:00 Test Item Value Reference Range Interpretation Comments Sodium Lvl (test code = Sodium Lvl) 132 135-145 [facility]2015-05-10 08:34:00 Test Item Value Reference Range Interpretation Comments CO2 (test code = CO2) 23 24-32 [facility]2015-05-10 08:34:00 Test Item Value Reference Range Interpretation Comments Chloride Lvl (test code = Chloride Lvl) 98 95-109 [facility]2015-05-10 08:34:00 Test Item Value Reference Range Interpretation Comments Calcium Lvl (test code = Calcium Lvl) 8.5 8.5-10.5 [place] 593885-05-10 08:34:00 Test Item Value Reference Range Interpretation Comments Creatinine Lvl (test code = Creatinine 1.3 0.5-1.4 Lvl) [place] 593885-05-10 08:34:00 Test Item Value Reference Range Interpretation Comments BUN (test code = BUN) 25 7-22 [place] 593885-05-10 08:34:00 Test Item Value Reference Range Interpretation Comments Glucose Lvl (test code = Glucose Lvl) 384 70-99 [facility]2015-05-10 08:34:00 Test Item Value Reference Range Interpretation Comments AGAP (test code = AGAP) 16.1 10.0-20.0 [place] 925055-05-10 08:34:00 Test Item Value Reference Range Interpretation Comments WBC (test code = WBC) 8.6 3.7-10.4 [facility] HospitalBhvdmtyMJSGNXUZSF2467-91-72 08:34:00 Test Item Value Reference Range Interpretation Comments RBC (test code = RBC) 3.75 4.70-6.10 [facility] HospitalEitaclfRQKRQYAZTY1544-02-62 08:34:00 Test Item Value Reference Range Interpretation Comments Hct (test code = Hct) 30.6 42.0-54.0 [facility] HospitalVsnmxrbNKHVNBESFP6843-46-89 08:34:00 Test Item Value Reference Range Interpretation Comments MCV (test code = MCV) 81.6 80.0-94.0 [facility] HospitalRgvnixhSCUJWNJFRG1602-65-20 08:34:00 Test Item Value Reference Range Interpretation Comments Hgb (test code = Hgb) 9.9 14.0-18.0 [place] 925055-05-10 08:34:00 Test Item Value Reference Range Interpretation Comments RDW (test code = RDW) 18.0 11.5-14.5 [facility] HospitalBleqtmrAFUYJIEOYF2991-68-00 08:34:00 Test Item Value Reference Range Interpretation Comments MCH (test code = MCH) 26.5 pg 27.0-31.0 [place] 925055-05-10 08:34:00 Test Item Value Reference Range Interpretation Comments MPV (test code = MPV) 7.3 7.4-10.4 [facility] HospitalKgvukilCKSTVLWCXP2533-56-77 08:34:00 Test Item Value Reference Range Interpretation Comments MCHC (test code = MCHC) 32.4 32.0-36.0 [facility] HospitalIkfcejrLCDVXDLLOC9812-81-08 08:34:00 Test Item Value Reference Range Interpretation Comments Platelet (test code = Platelet) 354 133-450 [facility] HospitalAhqnoqjCLCSUMADDN7715-94-99 08:34:00 Test Item Value Reference Range Interpretation Comments Lymphocytes (test code = Lymphocytes) 21.6 20.0-40.0 [facility] HospitalSkmifpqDRXGFMDUID8612-17-06 08:34:00 Test Item Value Reference Range Interpretation Comments Monocytes (test code = Monocytes) 5.3 2.0-12.0 [facility] HospitalKojxmdrNSUKHDYKPV7914-86-06 08:34:00 Test Item Value Reference Range Interpretation Comments Eosinophils (test code = Eosinophils) 3.1 <=4.0 [facility] HospitalEzpjiebFZUNUGUPWN3350-45-13 08:34:00 Test Item Value Reference Range Interpretation Comments Basophils (test code = Basophils) 0.8 <=1.0 [facility] HospitalYtpyoohRMZLQPFHNW0377-28-77 08:34:00 Test Item Value Reference Range Interpretation Comments Segs-Bands # (test code = Segs-Bands #) 5.9 1.5-8.1 [facility] HospitalUqriofhEROIJYOHZJ7976-32-36 08:34:00 Test Item Value Reference Range Interpretation Comments Segs (test code = Segs) 69.2 45.0-75.0 [facility] HospitalGujikhtDGTUGTFFEP4352-46-74 08:34:00 Test Item Value Reference Range Interpretation Comments Monocytes # (test code = Monocytes #) 0.5 <=0.8 [facility] HospitalDpnhluaYBLUYKOBNL4578-36-71 08:34:00 Test Item Value Reference Range Interpretation Comments Eosinophils # (test code = Eosinophils 0.3 <=0.5 #) [facility] HospitalAxzqhssRRBFTQUAIG6273-03-95 08:34:00 Test Item Value Reference Range Interpretation Comments Basophils # (test code = Basophils #) 0.1 <=0.2 [facility] HospitalKaoyuzwTVKFWUSBZY8161-44-93 08:34:00 Test Item Value Reference Range Interpretation Comments Lymphocytes # (test code = Lymphocytes 1.9 1.0-5.5 #) [facility] RockBerefbyWOKNABMYOX4764-55-65 08:34:00 Test Item Value Reference Range Interpretation Comments CRP, High Sensitivity (test code = CRP, 46.6 High Sensitivity) [facility]HlftvdkBCSXMENUNBJB0727-79-10 00:54:00 Test Item Value Reference Range Interpretation Comments CO2 (test code = CO2) 25 24-32 [facility] SystemOsrecjtWRVWHWSVKDKD9623-93-02 00:54:00 Test Item Value Reference Range Interpretation Comments AGAP (test code = AGAP) 12.9 10.0-20.0 [facility] SystemTxvphdmKGTBUHTTXJFM7874-04-33 00:54:00 Test Item Value Reference Range Interpretation Comments BUN (test code = BUN) 26 7-22 [facility] SystemEngnqqmBLHFNRDTWUVC9783-99-78 00:54:00 Test Item Value Reference Range Interpretation Comments Glucose Lvl (test code = Glucose Lvl) 271 70-99 [facility] SystemAzpjtzuPEGNTPUDGBPR2106-44-19 00:54:00 Test Item Value Reference Range Interpretation Comments Creatinine Lvl (test code = Creatinine 1.3 0.5-1.4 Lvl) [facility] SystemRjhrsnsUVBWZVZKCWEQ3029-97-77 00:54:00 Test Item Value Reference Range Interpretation Comments Potassium Lvl (test code = Potassium 4.9 3.5-5.1 Lvl) [facility] SystemHcmpdkjLZDWEEALBOLQ0684-48-83 00:54:00 Test Item Value Reference Range Interpretation Comments Chloride Lvl (test code = Chloride Lvl) 100 95-109 [facility] SystemBruxthlOSFTDWTFOJUO2104-66-88 00:54:00 Test Item Value Reference Range Interpretation Comments Sodium Lvl (test code = Sodium Lvl) 133 135-145 [facility] SystemDzcaocsRREVYLFQOPFV0171-62-89 00:54:00 Test Item Value Reference Range Interpretation Comments Calcium Lvl (test code = Calcium Lvl) 8.4 8.5-10.5 [facility] SystemMvojntyZAVEWUHKHGXW9880-42-10 00:54:00 Test Item Value Reference Range Interpretation Comments eGFR (test code = eGFR) 65 [facility]YgghcriHACGTBBPFN9409-35-26 09:52:00 Test Item Value Reference Range Interpretation Comments WBC (test code = WBC) 11.6 3.7-10.4 [facility] HospitalDdavrelUISROXTLQE8043-16-27 09:52:00 Test Item Value Reference Range Interpretation Comments RBC (test code = RBC) 3.88 4.70-6.10 [facility] HospitalQgdzhvyHSDLZDFSZQ6452-59-69 09:52:00 Test Item Value Reference Range Interpretation Comments Hgb (test code = Hgb) 10.2 14.0-18.0 [facility] HospitalPlwvssiJBYFDHBLOG1006-91-75 09:52:00 Test Item Value Reference Range Interpretation Comments MCHC (test code = MCHC) 32.5 32.0-36.0 [facility] HospitalIccevrmBHCOXNAXXA9669-55-29 09:52:00 Test Item Value Reference Range Interpretation Comments MCH (test code = MCH) 26.2 pg 27.0-31.0 [facility] HospitalBgbookySZGGOEQDLR9374-88-20 09:52:00 Test Item Value Reference Range Interpretation Comments RDW (test code = RDW) 18.0 11.5-14.5 [facility] HospitalEpnwedlAAFFZDDIJD8805-16-24 09:52:00 Test Item Value Reference Range Interpretation Comments MCV (test code = MCV) 80.7 80.0-94.0 [facility] HospitalRifmyikXLLYFWPTTL1238-75-36 09:52:00 Test Item Value Reference Range Interpretation Comments Hct (test code = Hct) 31.3 42.0-54.0 [facility] HospitalFvjejjhQTXDWKVLZE7093-33-38 09:52:00 Test Item Value Reference Range Interpretation Comments MPV (test code = MPV) 6.8 7.4-10.4 [facility] HospitalEvvoctkHECVVKWDIT4798-94-74 09:52:00 Test Item Value Reference Range Interpretation Comments Platelet (test code = Platelet) 424 133-450 [facility] HospitalBfgezuxCTCYNYDLDK0966-56-17 09:52:00 Test Item Value Reference Range Interpretation Comments Segs-Bands # (test code = Segs-Bands #) 9.9 1.5-8.1 [facility] HospitalZhhdazmKDCTRLBHVO7087-63-82 09:52:00 Test Item Value Reference Range Interpretation Comments Lymphocytes # (test code = Lymphocytes 1.1 1.0-5.5 #) [facility] HospitalPrgdinvFPPXXUIWJI7742-08-11 09:52:00 Test Item Value Reference Range Interpretation Comments Monocytes # (test code = Monocytes #) 0.6 <=0.8 [facility] HospitalMmpagqsZMNTJGVCSI8305-28-93 09:52:00 Test Item Value Reference Range Interpretation Comments Eosinophils # (test code = Eosinophils 0.0 <=0.5 #) [facility]laabQRATANKFNH6060-57-22 09:52:00 Test Item Value Reference Range Interpretation Comments Monocytes (test code = Monocytes) 5.2 2.0-12.0 [facility] HospitalJsokykqPGIIWLXQVU5611-17-69 09:52:00 Test Item Value Reference Range Interpretation Comments Eosinophils (test code = Eosinophils) 0.3 <=4.0 [facility] HospitalQvfxuzuSFDQLBXLEV1574-81-23 09:52:00 Test Item Value Reference Range Interpretation Comments Segs (test code = Segs) 85.0 45.0-75.0 [facility] HospitalNpgeefcEIBBVRHZFQ8826-87-17 09:52:00 Test Item Value Reference Range Interpretation Comments Lymphocytes (test code = Lymphocytes) 9.1 20.0-40.0 [facility] HospitalJzbhennPATVEMJIWI0949-78-15 09:52:00 Test Item Value Reference Range Interpretation Comments RBC Morph (test code = Normal (12/06/14 4:52 AM) RBC Morph) [facility] RockEzslbokLAUHBEQUQT5066-55-49 09:52:00 Test Item Value Reference Range Interpretation Comments Plt Morph (test code = Normal (12/06/14 4:52 AM) Plt Morph) [facility] RockCefgtnpWSXEAQWSKS2954-06-80 09:52:00 Test Item Value Reference Range Interpretation Comments Basophils (test code = Basophils) 0.4 <=1.0 [facility] XEDHDWG1054-41-33 22:41:00 Test Item Value Reference Range Interpretation Comments Antibody Scrn (test Negative (12/05/14 5:41 code = Antibody Scrn) PM) [facility] [employer] WOSRTDQ7801-79-21 22:41:00 Test Item Value Reference Range Interpretation Comments ABO/Rh (test code = ABO/Rh) O NEG [facility] TaylorJbwhjrbQLHYTLFOEJ9714-74-37 22:41:00 Test Item Value Reference Range Interpretation Comments Prealbumin (test code = Prealbumin) 19.3 18.0-45.0 [facility] TaylorAxxanaIAL UNNUXQJOW9134-63-39 22:41:00 Test Item Value Reference Range Interpretation Comments Hgb A1C (test code = Hgb A1C) 8.3 [facility] [place] Citydeal.deCHEM LPYIW2934-89-43 19:56:00 Test Item Value Reference Range Interpretation Comments A/G Ratio (test code = A/G Ratio) 0.9 0.7-1.6 [place] 593885-05-08 19:56:00 Test Item Value Reference Range Interpretation Comments Globulin (test code = Globulin) 3.7 2.0-4.0 [facility]2015-05-08 19:56:00 Test Item Value Reference Range Interpretation Comments B/C Ratio (test code = B/C Ratio) 23 6-25 [facility]2015-05-08 19:56:00 Test Item Value Reference Range Interpretation Comments ALT (test code = ALT) 37 <=65 [facility]2015-05-08 19:56:00 Test Item Value Reference Range Interpretation Comments Total Protein (test code = Total 6.9 6.4-8.4 Protein) [facility]2015-05-08 19:56:00 Test Item Value Reference Range Interpretation Comments Bili Total (test code = Bili Total) 0.6 0.2-1.3 [facility]2015-05-08 19:56:00 Test Item Value Reference Range Interpretation Comments Alk Phos (test code = Alk Phos) 172 39-136 [facility]2015-05-08 19:56:00 Test Item Value Reference Range Interpretation Comments AST (test code = AST) 24 <=37 [facility]2015-05-08 19:56:00 Test Item Value Reference Range Interpretation Comments Albumin Lvl (test code = Albumin Lvl) 3.2 3.5-5.0 [facility] HospitalBrvkwttYVEHTFZVAN2990-46-65 19:56:00 Test Item Value Reference Range Interpretation Comments Microcyte (test code = 1+ *ABN*(12/05/14 2:56 Microcyte) PM) [facility] HospitalEeuzjxhJDLVADWUWF1768-96-81 19:56:00 Test Item Value Reference Range Interpretation Comments Basophils # (test code = Basophils #) 0.1 <=0.2 [facility]WovqtryKYYKDDYRNKCO7567-36-20 09:10:00 Test Item Value Reference Range Interpretation Comments AGAP (test code = AGAP) 10.5 10.0-20.0 [facility] SystemBafvpmvBRKEDNKBMIBD6538-67-17 09:10:00 Test Item Value Reference Range Interpretation Comments eGFR (test code = eGFR) 72 [facility] SystemWhcnstyICUAMNRJQWQQ8040-76-52 09:10:00 Test Item Value Reference Range Interpretation Comments Creatinine Lvl (test code = Creatinine 1.2 0.5-1.4 Lvl) [facility] SystemRggddukUUXCCDTFNQBX9532-35-26 09:10:00 Test Item Value Reference Range Interpretation Comments Calcium Lvl (test code = Calcium Lvl) 8.7 8.5-10.5 [facility] SystemWavvlagQIZQRCWVBVXZ2962-71-40 09:10:00 Test Item Value Reference Range Interpretation Comments Potassium Lvl (test code = Potassium 4.5 3.5-5.1 Lvl) [facility] SystemRtmsptbOORYWPYHZWCC6808-04-01 09:10:00 Test Item Value Reference Range Interpretation Comments Sodium Lvl (test code = Sodium Lvl) 138 135-145 [facility] SystemTbubkcnAJXYLNJCAKKQ3246-49-25 09:10:00 Test Item Value Reference Range Interpretation Comments CO2 (test code = CO2) 30 24-32 [facility] SystemTdnkttfCPVHKXMUFAUN1648-49-76 09:10:00 Test Item Value Reference Range Interpretation Comments Chloride Lvl (test code = Chloride Lvl) 102 95-109 [facility] SystemNirpwnrZKZPXLVHXKQN3202-58-79 09:10:00 Test Item Value Reference Range Interpretation Comments BUN (test code = BUN) 17 7-22 [facility] SystemTjrwmjhJKFNVNGAUKKL2499-45-43 09:10:00 Test Item Value Reference Range Interpretation Comments Glucose Lvl (test code = Glucose Lvl) 67 70-99 [facility] HospitalBfwrdacTYRLRIRCDP5177-66-94 09:10:00 Test Item Value Reference Range Interpretation Comments WBC (test code = WBC) 11.4 3.7-10.4 [facility] HospitalJbrilsxMYYFQWCCOO4874-95-84 09:10:00 Test Item Value Reference Range Interpretation Comments Hgb (test code = Hgb) 9.3 14.0-18.0 [facility] HospitalKuetqzuHWVFJNVVKF0636-33-17 09:10:00 Test Item Value Reference Range Interpretation Comments RBC (test code = RBC) 3.51 4.70-6.10 [facility] HospitalWdtxyuqLPTDURXNVL0148-86-38 09:10:00 Test Item Value Reference Range Interpretation Comments MCH (test code = MCH) 26.5 pg 27.0-31.0 [facility] HospitalDutdffnLZVWMWXDCS3321-99-82 09:10:00 Test Item Value Reference Range Interpretation Comments MCV (test code = MCV) 78.2 80.0-94.0 [facility] HospitalCpsidaqCCYWHADLUY0644-10-77 09:10:00 Test Item Value Reference Range Interpretation Comments Hct (test code = Hct) 27.4 42.0-54.0 [facility] HospitalNssvjjdAZXPYAVGJU3419-95-64 09:10:00 Test Item Value Reference Range Interpretation Comments RDW (test code = RDW) 14.4 11.5-14.5 [facility] HospitalKmpmuqtJEYODFMOZZ6594-19-94 09:10:00 Test Item Value Reference Range Interpretation Comments MCHC (test code = MCHC) 33.9 32.0-36.0 [facility] HospitalPcihetiTQFMDSLJVW0007-95-37 09:10:00 Test Item Value Reference Range Interpretation Comments MPV (test code = MPV) 6.3 7.4-10.4 [facility] HospitalJdalxzaXKNJALGFDC3612-11-37 09:10:00 Test Item Value Reference Range Interpretation Comments Platelet (test code = Platelet) 647 133-450 [facility] HospitalDvhtfsxIPBSQPTXNQ3723-82-31 09:10:00 Test Item Value Reference Range Interpretation Comments Eosinophils # (test code = Eosinophils 0.7 <=0.5 #) [facility] HospitalVdmfnphKIPMQRXCZW8964-50-61 09:10:00 Test Item Value Reference Range Interpretation Comments RBC Morph (test code = Normal (10/30/14 4:10 AM) RBC Morph) [facility] HospitalYjintcoVOIYDAUVWE8276-98-38 09:10:00 Test Item Value Reference Range Interpretation Comments Monocytes (test code = Monocytes) 9.1 2.0-12.0 [facility] HospitalFckgkkwSYCAJWCHLY2912-84-61 09:10:00 Test Item Value Reference Range Interpretation Comments Lymphocytes (test code = Lymphocytes) 19.4 20.0-40.0 [facility] HospitalFtxdthsFYHOFJLNWA7930-98-51 09:10:00 Test Item Value Reference Range Interpretation Comments Segs (test code = Segs) 64.5 45.0-75.0 [facility] HospitalShucdtsIEZHSXLQPP9522-68-44 09:10:00 Test Item Value Reference Range Interpretation Comments Plt Morph (test code = Normal (10/30/14 4:10 AM) Plt Morph) [facility] HospitalZmasflxBRETGDOARX8429-83-78 09:10:00 Test Item Value Reference Range Interpretation Comments Lymphocytes # (test code = Lymphocytes 2.2 1.0-5.5 #) [facility] HospitalJpmxgjrYCCJSWUGUJ5322-73-19 09:10:00 Test Item Value Reference Range Interpretation Comments Eosinophils (test code = Eosinophils) 6.2 <=4.0 [facility] HospitalRfrhrozTJIZANLKFU3632-34-25 09:10:00 Test Item Value Reference Range Interpretation Comments Basophils (test code = Basophils) 0.8 <=1.0 [facility] HospitalRskqpqsIJIOVRAQYG9269-69-12 09:10:00 Test Item Value Reference Range Interpretation Comments Monocytes # (test code = Monocytes #) 1.0 <=0.8 [facility] HospitalIvfytwyAPFPIEKQDZ1419-28-86 09:10:00 Test Item Value Reference Range Interpretation Comments Segs-Bands # (test code = Segs-Bands #) 7.3 1.5-8.1 [facility] HospitalSjeurvcNCWMKYPQFM3225-44-39 09:10:00 Test Item Value Reference Range Interpretation Comments Microcyte (test code = 1+ *ABN*(10/30/14 4:10 Microcyte) AM) [facility] HospitalLaqwsocZUQFWJJTJX0541-92-06 09:10:00 Test Item Value Reference Range Interpretation Comments Basophils # (test code = Basophils #) 0.1 <=0.2 [facility]2015-03-31 09:53:00 Test Item Value Reference Range Interpretation Comments Calcium Lvl (test code = Calcium Lvl) 8.8 8.5-10.5 [facility]2015-03-31 09:53:00 Test Item Value Reference Range Interpretation Comments Potassium Lvl (test code = Potassium 4.4 3.5-5.1 Lvl) [facility]2015-03-31 09:53:00 Test Item Value Reference Range Interpretation Comments Sodium Lvl (test code = Sodium Lvl) 138 135-145 [facility]2015-03-31 09:53:00 Test Item Value Reference Range Interpretation Comments Chloride Lvl (test code = Chloride Lvl) 102 95-109 [facility]2015-03-31 09:53:00 Test Item Value Reference Range Interpretation Comments Creatinine Lvl (test code = Creatinine 1.2 0.5-1.4 Lvl) [facility]2015-03-31 09:53:00 Test Item Value Reference Range Interpretation Comments eGFR (test code = eGFR) 72 [facility]2015-03-31 09:53:00 Test Item Value Reference Range Interpretation Comments AGAP (test code = AGAP) 11.4 10.0-20.0 [facility]2015-03-31 09:53:00 Test Item Value Reference Range Interpretation Comments CO2 (test code = CO2) 29 24-32 [facility]2015-03-31 09:53:00 Test Item Value Reference Range Interpretation Comments BUN (test code = BUN) 16 7-22 [facility]2015-03-31 09:53:00 Test Item Value Reference Range Interpretation Comments Glucose Lvl (test code = Glucose Lvl) 50 70-99 [facility] HospitalYxcckhuMBWCLXJGZW1991-52-14 09:53:00 Test Item Value Reference Range Interpretation Comments MPV (test code = MPV) 6.8 7.4-10.4 [facility] HospitalHhljghzFAVYJFVOXD2966-92-97 09:53:00 Test Item Value Reference Range Interpretation Comments RDW (test code = RDW) 14.4 11.5-14.5 [facility] HospitalLrigprzLKCAJNREFM9782-90-85 09:53:00 Test Item Value Reference Range Interpretation Comments Platelet (test code = Platelet) 710 133-450 [facility] HospitalLfhfodzJYUBISKRWR6188-75-24 09:53:00 Test Item Value Reference Range Interpretation Comments MCH (test code = MCH) 26.5 pg 27.0-31.0 [facility] HospitalLvywrgyVUYYSYDVOE8244-25-24 09:53:00 Test Item Value Reference Range Interpretation Comments MCHC (test code = MCHC) 33.8 32.0-36.0 [facility] HospitalIelsciiQEMUEMNGNK1709-56-43 09:53:00 Test Item Value Reference Range Interpretation Comments MCV (test code = MCV) 78.6 80.0-94.0 [facility] HospitalEmijgjhGNNQBLUBQA1051-84-70 09:53:00 Test Item Value Reference Range Interpretation Comments WBC (test code = WBC) 12.9 3.7-10.4 [facility] HospitalQyxxrlfFFOJCBINXO8981-42-28 09:53:00 Test Item Value Reference Range Interpretation Comments RBC (test code = RBC) 3.61 4.70-6.10 [facility] HospitalBqsbejsOXBGSIASIU0163-67-54 09:53:00 Test Item Value Reference Range Interpretation Comments Hgb (test code = Hgb) 9.6 14.0-18.0 [place] [address]-03-31 09:53:00 Test Item Value Reference Range Interpretation Comments Hct (test code = Hct) 28.3 42.0-54.0 [facility] HospitalPbydaanTOEKLXHISX6156-18-89 09:53:00 Test Item Value Reference Range Interpretation Comments Monocytes # (test code = Monocytes #) 1.5 <=0.8 [facility] HospitalCxqiwsuGMJIPUYVWF5313-63-33 09:53:00 Test Item Value Reference Range Interpretation Comments Eosinophils # (test code = Eosinophils 1.1 <=0.5 #) [facility] HospitalAleitccUWSPNBPHWR7897-58-56 09:53:00 Test Item Value Reference Range Interpretation Comments Basophils (test code = Basophils) 0.8 <=1.0 [facility] HospitalPvpvoklOITBPQBALZ1485-54-89 09:53:00 Test Item Value Reference Range Interpretation Comments Microcyte (test code = 1+ *ABN*(10/28/14 Microcyte) 4:53 AM) [facility] HospitalOfrfkylPSMRQFVMAV2685-33-13 09:53:00 Test Item Value Reference Range Interpretation Comments Basophils # (test code = Basophils #) 0.1 <=0.2 [facility] HospitalLimrqakXNPEXUFZKN4542-32-20 09:53:00 Test Item Value Reference Range Interpretation Comments Segs-Bands # (test code = Segs-Bands #) 7.7 1.5-8.1 [facility] HospitalMifquorOEPPRIWBRR0059-86-01 09:53:00 Test Item Value Reference Range Interpretation Comments Lymphocytes # (test code = Lymphocytes 2.5 1.0-5.5 #) [facility] HospitalVfcaboyAVOIHWVJTU8564-42-51 09:53:00 Test Item Value Reference Range Interpretation Comments Segs (test code = Segs) 59.4 45.0-75.0 [facility] HospitalAcklvqpJMQEKLXJLX9549-97-08 09:53:00 Test Item Value Reference Range Interpretation Comments Monocytes (test code = Monocytes) 11.9 2.0-12.0 [facility] HospitalRubqoltCBORQCUEHR4726-40-28 09:53:00 Test Item Value Reference Range Interpretation Comments Eosinophils (test code = Eosinophils) 8.3 <=4.0 [facility] HospitalMqbtwmfKSKLNOBNLB8413-65-07 09:53:00 Test Item Value Reference Range Interpretation Comments Lymphocytes (test code = Lymphocytes) 19.6 20.0-40.0 [facility]2015-03-30 18:14:00 Test Item Value Reference Range Interpretation Comments Crystal BF Type (test Synovial (10/27/14 1:14 code = Crystal BF PM) Type) [facility]2015-03-30 18:14:00 Test Item Value Reference Range Interpretation Comments Crystal BF (test code Negative (10/27/14 1:14 = Crystal BF) PM) [facility]ycnjihNREYQIZJQQ4572-91-40 17:07:00 Test Item Value Reference Range Interpretation Comments Vanco Tr (test code = Vanco Tr) 18.6 [facility] RockMgzpsxnFUSEOGQCWZ8116-02-01 17:07:00 Test Item Value Reference Range Interpretation Comments Vanco Tr TND (test code = Vanco Tr TND) 1300 [facility]2015-03-30 09:51:00 Test Item Value Reference Range Interpretation Comments Uric Acid (test code = Uric Acid) 2.4 3.8-8.0 [facility]QptamosTPOIYCSUEVML0439-81-44 09:51:00 Test Item Value Reference Range Interpretation Comments Sodium Lvl (test code = Sodium Lvl) 136 135-145 [facility] SystemAjsustvPFHFJDNFBQJE6475-10-23 09:51:00 Test Item Value Reference Range Interpretation Comments Chloride Lvl (test code = Chloride Lvl) 101 95-109 [facility]MwztlynQWSFPQUJLJZP9419-96-32 09:51:00 Test Item Value Reference Range Interpretation Comments Potassium Lvl (test code = Potassium 4.6 3.5-5.1 Lvl) [facility] SystemJhbxlibYHXKVOABMAWX3986-25-25 09:51:00 Test Item Value Reference Range Interpretation Comments BUN (test code = BUN) 17 7-22 [facility] SystemOyzmgtgDWKIIHADJYEO2393-21-44 09:51:00 Test Item Value Reference Range Interpretation Comments CO2 (test code = CO2) 27 24-32 [facility] SystemMmlgtkqUQVRZYYFPBRC5624-07-61 09:51:00 Test Item Value Reference Range Interpretation Comments Glucose Lvl (test code = Glucose Lvl) 254 70-99 [facility] SystemBgpjvoiMCVIXZDBJABF2905-49-50 09:51:00 Test Item Value Reference Range Interpretation Comments eGFR (test code = eGFR) 80 [facility] SystemWelmhaqPCKFTUUZXDBO3308-99-56 09:51:00 Test Item Value Reference Range Interpretation Comments Creatinine Lvl (test code = Creatinine 1.1 0.5-1.4 Lvl) [facility] SystemLcjdrkcAYSXCIHYTJDO5436-28-56 09:51:00 Test Item Value Reference Range Interpretation Comments Calcium Lvl (test code = Calcium Lvl) 8.4 8.5-10.5 [facility] SystemMyefwlgKTCLJIFENEVY4021-94-89 09:51:00 Test Item Value Reference Range Interpretation Comments AGAP (test code = AGAP) 12.6 10.0-20.0 [facility] HospitalLxdpxfpWWTUQRTUKQ1445-43-43 09:51:00 Test Item Value Reference Range Interpretation Comments Platelet (test code = Platelet) 692 133450 [facility] HospitalQrgdjjiQELGADLPND5999-30-56 09:51:00 Test Item Value Reference Range Interpretation Comments RDW (test code = RDW) 14.7 11.5-14.5 [facility] HospitalKzusokpUXOYRBUFOF5161-43-31 09:51:00 Test Item Value Reference Range Interpretation Comments MCH (test code = MCH) 25.3 pg 27.0-31.0 [facility] HospitalPgvsngfCBIIVUUBUJ3297-16-37 09:51:00 Test Item Value Reference Range Interpretation Comments MCHC (test code = MCHC) 32.3 32.0-36.0 [facility] HospitalMidczhzBKAEAHDAUO4587-93-46 09:51:00 Test Item Value Reference Range Interpretation Comments Hct (test code = Hct) 27.3 42.0-54.0 [facility] HospitalMbdzoriMXBEDDELFO4011-38-04 09:51:00 Test Item Value Reference Range Interpretation Comments MCV (test code = MCV) 78.3 80.0-94.0 [facility] HospitalDidgbdoENTSZFKYBR7575-78-52 09:51:00 Test Item Value Reference Range Interpretation Comments Hgb (test code = Hgb) 8.8 14.0-18.0 [facility] HospitalAgoxjfjAMYNVUHLKG6247-92-46 09:51:00 Test Item Value Reference Range Interpretation Comments WBC (test code = WBC) 12.3 3.7-10.4 [facility] HospitalGdegyhnMMDGZSWYUD4293-91-09 09:51:00 Test Item Value Reference Range Interpretation Comments RBC (test code = RBC) 3.49 4.70-6.10 [facility] HospitalAcmadfmIKGXGDKRVB4426-61-50 09:51:00 Test Item Value Reference Range Interpretation Comments MPV (test code = MPV) 6.9 7.4-10.4 [facility] HospitalDgmcklbJTDXGLMHQS4147-03-36 09:51:00 Test Item Value Reference Range Interpretation Comments Basophils # (test code = Basophils #) 0.1 <=0.2 [facility] HospitalHwygvucSENJUNVLTA4713-28-88 09:51:00 Test Item Value Reference Range Interpretation Comments Microcyte (test code = 1+ *ABN*(10/27/14 Microcyte) 4:51 AM) [facility] HospitalCterxgwXCTFDILQID8248-21-05 09:51:00 Test Item Value Reference Range Interpretation Comments Monocytes # (test code = Monocytes #) 1.5 <=0.8 [facility] HospitalTznkaziWYJYUUVPOM9604-90-58 09:51:00 Test Item Value Reference Range Interpretation Comments Eosinophils # (test code = Eosinophils 0.8 <=0.5 #) [facility] HospitalEoselxaISUADRQTOP5525-32-40 09:51:00 Test Item Value Reference Range Interpretation Comments Segs-Bands # (test code = Segs-Bands #) 7.5 1.5-8.1 [facility] HospitalBilbarlOQMCSVAMBH3104-45-90 09:51:00 Test Item Value Reference Range Interpretation Comments Lymphocytes # (test code = Lymphocytes 2.4 1.0-5.5 #) [facility] HospitalMeatshzDMKHIWLKYG6331-44-23 09:51:00 Test Item Value Reference Range Interpretation Comments Eosinophils (test code = Eosinophils) 6.7 <=4.0 [facility] HospitalIdjcdmmPZBMCXAGUY0106-52-78 09:51:00 Test Item Value Reference Range Interpretation Comments Basophils (test code = Basophils) 1.0 <=1.0 [facility] HospitalVdkqrtpYSRUAXKEHW0123-65-07 09:51:00 Test Item Value Reference Range Interpretation Comments Monocytes (test code = Monocytes) 12.3 2.0-12.0 [facility]RdtczysFEJDEXENDT7585-03-54 09:51:00 Test Item Value Reference Range Interpretation Comments Segs (test code = Segs) 60.8 45.0-75.0 [facility] HospitalOxgmvrsLXIBZEYBIU9492-29-67 09:51:00 Test Item Value Reference Range Interpretation Comments Lymphocytes (test code = Lymphocytes) 19.2 20.0-40.0 [facility]StwdvfrZYYAMBFZXC3020-57-80 09:51:00 Test Item Value Reference Range Interpretation Comments CRP, High Sensitivity (test code = CRP, 64.2 High Sensitivity) [facility]2015-03-28 10:48:00 Test Item Value Reference Range Interpretation Comments B/C Ratio (test code = B/C Ratio) 21 6-25 [facility]2015-03-28 10:48:00 Test Item Value Reference Range Interpretation Comments A/G Ratio (test code = A/G Ratio) 0.5 0.7-1.6 [facility]2015-03-28 10:48:00 Test Item Value Reference Range Interpretation Comments Globulin (test code = Globulin) 3.7 2.0-4.0 [facility]2015-03-28 10:48:00 Test Item Value Reference Range Interpretation Comments Albumin Lvl (test code = Albumin Lvl) 1.8 3.5-5.0 [facility]2015-03-28 10:48:00 Test Item Value Reference Range Interpretation Comments Total Protein (test code = Total 5.5 6.4-8.4 Protein) [facility]2015-03-28 10:48:00 Test Item Value Reference Range Interpretation Comments Bili Total (test code = Bili Total) 0.9 0.2-1.3 [facility]2015-03-28 10:48:00 Test Item Value Reference Range Interpretation Comments AST (test code = AST) 23 <=37 [facility]2015-03-28 10:48:00 Test Item Value Reference Range Interpretation Comments ALT (test code = ALT) 33 <=65 [facility]2015-03-28 10:48:00 Test Item Value Reference Range Interpretation Comments Alk Phos (test code = Alk Phos) 628 39-136 [facility] HospitalUuexsfuBXKAIDSGAJ4597-34-55 10:48:00 Test Item Value Reference Range Interpretation Comments Hypochrom (test code = 1+ (10/25/14 5:48 AM) Hypochrom) [facility] HospitalZfmrcfcHHYPFSCOPK6049-59-68 10:48:00 Test Item Value Reference Range Interpretation Comments Plt Morph (test code = Normal (10/25/14 5:48 Plt Morph) AM) [facility] RockHcidzpmTTLNTIDYCK5099-73-56 10:48:00 Test Item Value Reference Range Interpretation Comments Hep C Ab (test code = Negative *NA*(10/25/14 Hep C Ab) 5:48 AM) [facility] RockTnprioyVNOSPVTFLC3404-74-92 10:48:00 Test Item Value Reference Range Interpretation Comments Hep Bs Ag (test code Negative *NA*(10/25/14 = Hep Bs Ag) 5:48 AM) [facility] RockJkpcrjhGDIBIOTBRN6185-04-46 10:48:00 Test Item Value Reference Range Interpretation Comments Hep B Core IgM (test Negative *NA*(10/25/14 code = Hep B Core 5:48 AM) IgM) [facility] RockYtuvjjqXFVYGCVFBW2007-68-47 10:48:00 Test Item Value Reference Range Interpretation Comments Hep A IgM (test code Negative *NA*(10/25/14 = Hep A IgM) 5:48 AM) [facility] RockEvaeyigAUHBYHAIBW8720-90-02 10:48:00 Test Item Value Reference Range Interpretation Comments CRP, High Sensitivity (test code = CRP, 177.0 High Sensitivity) [facility] BGXKNXRPY6996-49-85 10:48:00 Test Item Value Reference Range Interpretation Comments Hgb A1C (test code = Hgb A1C) 9.1 [facility] [id number] 22:14:00 Test Item Value Reference Range Interpretation Comments % Satur Fe (test code = % Satur Fe) 21 12-57 [facility] [id number] 22:14:00 Test Item Value Reference Range Interpretation Comments TIBC (test code = TIBC) 147 228-428 [facility] [id number] 22:14:00 Test Item Value Reference Range Interpretation Comments UIBC (test code = UIBC) 116 110-370 [facility] [id number] 22:14:00 Test Item Value Reference Range Interpretation Comments Iron (test code = Iron) 31 45-160 [facility] [id number] 22:14:00 Test Item Value Reference Range Interpretation Comments Ferritin Lvl (test code = Ferritin Lvl) 753 22-275 [facility] CenterAolkqbqSAXNIDCPYA4701-51-05 18:38:00 Test Item Value Reference Range Interpretation Comments Vanco Tr (test code = Vanco Tr) 5.8 [facility] CenterBhwftlhSZKOVKIEVN7776-37-73 18:38:00 Test Item Value Reference Range Interpretation Comments Vanco Tr TND (test code = Vanco Tr TND) 1300 [facility] AND [id number] 09:02:00 Test Item Value Reference Range Interpretation Comments UA Sq Epi (test code = UA Sq Epi) None Seen [facility] AND [id number] 09:02:00 Test Item Value Reference Range Interpretation Comments UA Urobilinogen (test code = UA <=1.0 mg/dL 0.1-1.0 Urobilinogen) [facility] AND [id number] 09:02:00 Test Item Value Reference Range Interpretation Comments UA Mucus (test code = UA Mucus) Few /LPF [facility] AND [id number] 09:02:00 Test Item Value Reference Range Interpretation Comments UA WBC (test code = UA WBC) 1 <=5 [facility] [id number] 09:02:00 Test Item Value Reference Range Interpretation Comments UA Leuk Est (test Negative (10/24/14 4:02 code = UA Leuk Est) AM) [facility] [id number] 09:02:00 Test Item Value Reference Range Interpretation Comments UA Nitrite (test code Negative (10/24/14 4:02 = UA Nitrite) AM) [facility] [id number] 09:02:00 Test Item Value Reference Range Interpretation Comments UA RBC (test code = UA RBC) no gt <=2 [facility] [id number] 09:02:00 Test Item Value Reference Range Interpretation Comments UA Blood (test code = Trace *ABN*(10/24/14 UA Blood) 4:02 AM) [facility] [id number] 09:02:00 Test Item Value Reference Range Interpretation Comments UA Bili (test code = Negative *NA*(10/24/14 UA Bili) 4:02 AM) [facility] [id number] 09:02:00 Test Item Value Reference Range Interpretation Comments UA Protein (test code = UA Protein) 100 mg/dL [facility] [id number] 09:02:00 Test Item Value Reference Range Interpretation Comments UA pH (test code = UA pH) 5.5 5.0-8.0 [facility] [id number] 09:02:00 Test Item Value Reference Range Interpretation Comments UA Spec Grav (test code = UA Spec Grav) 1.022 [facility] [id number] 09:02:00 Test Item Value Reference Range Interpretation Comments UA Ketones (test code = UA Ketones) 60 mg/dL [facility] [id number] 09:02:00 Test Item Value Reference Range Interpretation Comments UA Glucose (test code = UA >=1000 mg/dL Glucose) [facility] [id number] 09:02:00 Test Item Value Reference Range Interpretation Comments UA Turbidity (test code = Clear (10/24/14 4:02 UA Turbidity) AM) [facility] [id number] 09:02:00 Test Item Value Reference Range Interpretation Comments UA Color (test code = Yellow *NA*(10/24/14 UA Color) 4:02 AM) [facility]2015-03-27 08:36:00 Test Item Value Reference Range Interpretation Comments Total Protein (test code = Total 6.8 6.4-8.4 Protein) [facility]2015-03-27 08:36:00 Test Item Value Reference Range Interpretation Comments Bili Total (test code = Bili Total) 2.0 0.2-1.3 [facility]2015-03-27 08:36:00 Test Item Value Reference Range Interpretation Comments Albumin Lvl (test code = Albumin Lvl) 2.3 3.5-5.0 [facility]2015-03-27 08:36:00 Test Item Value Reference Range Interpretation Comments AST (test code = AST) 24 <=37 [facility]2015-03-27 08:36:00 Test Item Value Reference Range Interpretation Comments ALT (test code = ALT) 46 <=65 [facility]2015-03-27 08:36:00 Test Item Value Reference Range Interpretation Comments Alk Phos (test code = Alk Phos) 891 39-136 [facility]2015-03-27 08:36:00 Test Item Value Reference Range Interpretation Comments B/C Ratio (test code = B/C Ratio) 13 6-25 [facility]2015-03-27 08:36:00 Test Item Value Reference Range Interpretation Comments Globulin (test code = Globulin) 4.5 2.0-4.0 [facility]2015-03-27 08:36:00 Test Item Value Reference Range Interpretation Comments A/G Ratio (test code = A/G Ratio) 0.5 0.7-1.6 [facility]2015-03-27 08:36:00 Test Item Value Reference Range Interpretation Comments Magnesium Lvl (test code = Magnesium 1.8 1.8-2.4 Lvl) [facility] HospitalYkohrrsSRGKJZINHK7019-89-42 08:36:00 Test Item Value Reference Range Interpretation Comments Sed Rate (test code = Sed Rate) >100 mm/hr <=15 [facility] HospitalWexemacLLCLWHPRTT6872-79-73 08:36:00 Test Item Value Reference Range Interpretation Comments PT (test code = PT) 13.7 s 12.0-14.7 [facility] HospitalCjejshyUNPNYZYNXS8524-76-23 08:36:00 Test Item Value Reference Range Interpretation Comments INR (test code = INR) 1.05 0.85-1.17 [facility] [id number] 08:36:00 Test Item Value Reference Range Interpretation Comments Hgb A1C (test code = Hgb A1C) 9.1 [facility]2015-02-11 11:37:00 Test Item Value Reference Range Interpretation Comments Glucose Lvl (test code = Glucose Lvl) 313 70-99 [facility]2015-02-11 11:37:00 Test Item Value Reference Range Interpretation Comments CO2 (test code = CO2) 27 24-32 [facility]2015-02-11 11:37:00 Test Item Value Reference Range Interpretation Comments Potassium Lvl (test code = Potassium 4.7 3.5-5.1 Lvl) [facility]2015-02-11 11:37:00 Test Item Value Reference Range Interpretation Comments Chloride Lvl (test code = Chloride Lvl) 99 95-109 [facility]2015-02-11 11:37:00 Test Item Value Reference Range Interpretation Comments eGFR (test code = eGFR) 80 [facility]2015-02-11 11:37:00 Test Item Value Reference Range Interpretation Comments Sodium Lvl (test code = Sodium Lvl) 134 135-145 [facility]2015-02-11 11:37:00 Test Item Value Reference Range Interpretation Comments Creatinine Lvl (test code = Creatinine 1.1 0.5-1.4 Lvl) [facility]2015-02-11 11:37:00 Test Item Value Reference Range Interpretation Comments BUN (test code = BUN) 16 7-22 [facility]2015-02-11 11:37:00 Test Item Value Reference Range Interpretation Comments Calcium Lvl (test code = Calcium Lvl) 8.1 8.5-10.5 [facility]2015-02-11 11:37:00 Test Item Value Reference Range Interpretation Comments AGAP (test code = AGAP) 12.7 10.0-20.0 [facility] HospitalQqwestjHOVOVHXVXG6912-21-44 11:37:00 Test Item Value Reference Range Interpretation Comments MCHC (test code = MCHC) 33.1 32.0-36.0 [facility] HospitalBeixqptUSRHCZOHXX8063-69-52 11:37:00 Test Item Value Reference Range Interpretation Comments MPV (test code = MPV) 7.9 7.4-10.4 [facility] HospitalJmcodjrWTAHWRBMUN1822-19-65 11:37:00 Test Item Value Reference Range Interpretation Comments Platelet (test code = Platelet) 381 133-450 [facility] HospitalNnatcgpPHRUHPWSVH7463-32-51 11:37:00 Test Item Value Reference Range Interpretation Comments RDW (test code = RDW) 13.3 11.5-14.5 [facility] HospitalBsfupipOTJWFTWJOM0934-40-52 11:37:00 Test Item Value Reference Range Interpretation Comments Hgb (test code = Hgb) 12.3 14.0-18.0 [facility] HospitalNrldfkbGHSJGEMOHA3833-11-10 11:37:00 Test Item Value Reference Range Interpretation Comments RBC (test code = RBC) 4.48 4.70-6.10 [facility] HospitalYledmwmFSJYFKPKFO5838-55-26 11:37:00 Test Item Value Reference Range Interpretation Comments Hct (test code = Hct) 37.3 42.0-54.0 [facility] HospitalUrlctlcKFHXYBMWOZ8445-00-28 11:37:00 Test Item Value Reference Range Interpretation Comments MCH (test code = MCH) 27.5 pg 27.0-31.0 [facility] HospitalWrpbmxwGCQMOTIJCN5664-74-39 11:37:00 Test Item Value Reference Range Interpretation Comments MCV (test code = MCV) 83.3 80.0-94.0 [facility] HospitalDooiunmCVWWMXCMZE9452-00-72 11:37:00 Test Item Value Reference Range Interpretation Comments WBC (test code = WBC) 10.5 3.7-10.4 [facility] HospitalZedjhvrTTZLLAPWAG3971-96-77 11:37:00 Test Item Value Reference Range Interpretation Comments Eosinophils (test code = Eosinophils) 2.6 <=4.0 [facility] HospitalUnznwbvDAPWTZAUXC0814-63-54 11:37:00 Test Item Value Reference Range Interpretation Comments Monocytes # (test code = Monocytes #) 1.2 <=0.8 [facility] HospitalUyszlezNSPOKOAEWA3696-56-47 11:37:00 Test Item Value Reference Range Interpretation Comments Lymphocytes # (test code = Lymphocytes 2.6 1.0-5.5 #) [facility] HospitalGlmefdvKZTUVIRJCA4955-91-43 11:37:00 Test Item Value Reference Range Interpretation Comments Segs-Bands # (test code = Segs-Bands #) 6.3 1.5-8.1 [facility] HospitalYzzuhwuACSDFZNIMK2700-92-61 11:37:00 Test Item Value Reference Range Interpretation Comments Basophils (test code = Basophils) 0.7 <=1.0 [facility] HospitalYmnlbxtEPXAJVSDOR3965-12-95 11:37:00 Test Item Value Reference Range Interpretation Comments Monocytes (test code = Monocytes) 11.5 2.0-12.0 [facility] HospitalXeoohalIMMOPEONRN6086-74-17 11:37:00 Test Item Value Reference Range Interpretation Comments Lymphocytes (test code = Lymphocytes) 25.2 20.0-40.0 [facility] HospitalBguvcegCLNWUYXHCL0286-90-19 11:37:00 Test Item Value Reference Range Interpretation Comments Basophils # (test code = Basophils #) 0.1 <=0.2 [facility] HospitalKgmeoflPNYEIHVWKI4854-60-64 11:37:00 Test Item Value Reference Range Interpretation Comments Eosinophils # (test code = Eosinophils 0.3 <=0.5 #) [facility] HospitalYjsrwjjGHBORWKSCT7095-98-93 11:37:00 Test Item Value Reference Range Interpretation Comments Segs (test code = Segs) 60.0 45.0-75.0 [facility] [employer] NNRNIRX9197-10-09 21:09:00 Test Item Value Reference Range Interpretation Comments Antibody Scrn (test Negative (09/09/14 3:09 code = Antibody Scrn) PM) [facility] XRIYUDX1264-05-90 21:09:00 Test Item Value Reference Range Interpretation Comments ABO/Rh (test code = ABO/Rh) [facility]G [facility]xa[facility]cxLIJBNDJAGYSB6383-17-35 14:46:00 Test Item Value Reference Range Interpretation Comments AGAP (test code = AGAP) 10.3 10.0-20.0 [facility]XnbgoxnAOFLJLCLUGHT1807-86-69 14:46:00 Test Item Value Reference Range Interpretation Comments Potassium Lvl (test code = Potassium 4.3 3.5-5.1 Lvl) [facility] SystemZexdvpnMQGTTJTPDRKT4595-96-98 14:46:00 Test Item Value Reference Range Interpretation Comments Chloride Lvl (test code = Chloride Lvl) 99 95-109 [facility] SystemUzifrcaVKYCYUBUDPFR8205-04-61 14:46:00 Test Item Value Reference Range Interpretation Comments Sodium Lvl (test code = Sodium Lvl) 133 135-145 [facility] SystemKncbdayGOJIDSZMVESP7857-11-08 14:46:00 Test Item Value Reference Range Interpretation Comments Glucose Lvl (test code = Glucose Lvl) 253 70-99 [facility] SystemVikjaewDGJQQJQNAPYF9586-31-29 14:46:00 Test Item Value Reference Range Interpretation Comments eGFR (test code = eGFR) 72 [facility] SystemRghfqihTAIWJHXPMHRF9646-54-96 14:46:00 Test Item Value Reference Range Interpretation Comments Creatinine Lvl (test code = Creatinine 1.2 0.5-1.4 Lvl) [facility] SystemCkvncxvAVDQHDBHUMPS6615-99-20 14:46:00 Test Item Value Reference Range Interpretation Comments Calcium Lvl (test code = Calcium Lvl) 8.4 8.5-10.5 [facility] SystemOhojvjzFJDZXJTXHKYR8384-20-34 14:46:00 Test Item Value Reference Range Interpretation Comments BUN (test code = BUN) 18 7-22 [facility] SystemXlqaouaOBNWHYKYHXUZ1553-05-49 14:46:00 Test Item Value Reference Range Interpretation Comments CO2 (test code = CO2) 28 24-32 [facility] HospitalFmswnbcUEJADVVFFQ4622-56-57 14:46:00 Test Item Value Reference Range Interpretation Comments Hgb (test code = Hgb) 12.3 14.0-18.0 [facility] HospitalJemhcjmHUSTCFGHJU5051-56-84 14:46:00 Test Item Value Reference Range Interpretation Comments RBC (test code = RBC) 4.40 4.70-6.10 [facility] HospitalMkbgsdqIUUFTJCKQZ5243-27-83 14:46:00 Test Item Value Reference Range Interpretation Comments MCV (test code = MCV) 82.8 80.0-94.0 [facility] HospitalBxwsvbjOUEULDOWRO1889-12-69 14:46:00 Test Item Value Reference Range Interpretation Comments Hct (test code = Hct) 36.4 42.0-54.0 [facility] HospitalYgslixyAQIOJVQRPQ6143-55-50 14:46:00 Test Item Value Reference Range Interpretation Comments WBC (test code = WBC) 9.3 3.7-10.4 [facility] HospitalHkpfrtzEDWZZMLTJB5328-08-67 14:46:00 Test Item Value Reference Range Interpretation Comments MCHC (test code = MCHC) 33.8 32.0-36.0 [facility] HospitalLzmubthPNTLZCTQLN1461-87-95 14:46:00 Test Item Value Reference Range Interpretation Comments MCH (test code = MCH) 28.0 pg 27.0-31.0 [facility] HospitalDijtkqnEUJIMLUBHO9939-54-64 14:46:00 Test Item Value Reference Range Interpretation Comments MPV (test code = MPV) 7.1 7.4-10.4 [facility] HospitalSpcopplXCLCRRKQGI4049-37-48 14:46:00 Test Item Value Reference Range Interpretation Comments RDW (test code = RDW) 13.4 11.5-14.5 [facility] HospitalAwisfaeUOZCKRFFZS0162-82-14 14:46:00 Test Item Value Reference Range Interpretation Comments Platelet (test code = Platelet) 401 133-450 [facility] HospitalUugqxhuRCESXOJEPK1884-84-25 14:46:00 Test Item Value Reference Range Interpretation Comments Lymphocytes (test code = Lymphocytes) 34.1 20.0-40.0 [facility] HospitalQocuticOUXQIDMVRN8441-62-31 14:46:00 Test Item Value Reference Range Interpretation Comments Monocytes (test code = Monocytes) 13.7 2.0-12.0 [facility] HospitalWmmgrnqRCBFOSEGMC0088-53-47 14:46:00 Test Item Value Reference Range Interpretation Comments Segs (test code = Segs) 47.9 45.0-75.0 [facility] HospitalZmcqbbsWNTSTHXMUF9049-36-86 14:46:00 Test Item Value Reference Range Interpretation Comments Eosinophils # (test code = Eosinophils 0.3 <=0.5 #) [facility] HospitalXnmuwhrKWATUVSTGF2319-56-03 14:46:00 Test Item Value Reference Range Interpretation Comments Eosinophils (test code = Eosinophils) 3.4 <=4.0 [facility]IjchjsiZGVIBKTKYK5664-29-15 14:46:00 Test Item Value Reference Range Interpretation Comments Basophils (test code = Basophils) 0.9 <=1.0 [facility]OvlhslaHBBPPPNYRB1804-64-61 14:46:00 Test Item Value Reference Range Interpretation Comments Segs-Bands # (test code = Segs-Bands #) 4.5 1.5-8.1 [facility] MichiganUabhensTQJXWOKEUJ5838-62-61 14:46:00 Test Item Value Reference Range Interpretation Comments Lymphocytes # (test code = Lymphocytes 3.2 1.0-5.5 #) [facility]QefgvfrSMCNKSXAPS5459-34-70 14:46:00 Test Item Value Reference Range Interpretation Comments Monocytes # (test code = Monocytes #) 1.3 <=0.8 [facility] MichiganTrzvanbFKUBXMUZYK5633-73-60 14:46:00 Test Item Value Reference Range Interpretation Comments Basophils # (test code = Basophils #) 0.1 <=0.2 [facility] RockHtjionpZREZJC5037-05-02 14:46:00 Test Item Value Reference Range Interpretation Comments Trig (test code = Trig) 204 [facility] RockDbhsrolXEZGEC1155-55-59 14:46:00 Test Item Value Reference Range Interpretation Comments Chol (test code = Chol) 182 [facility] RockLurbimuYRLFMF4468-59-95 14:46:00 Test Item Value Reference Range Interpretation Comments VLDL (test code = VLDL) 41 [facility] RockXfyejawTNKCNJ3928-55-36 14:46:00 Test Item Value Reference Range Interpretation Comments LDL (Calculated) (test code = LDL 103 (Calculated)) [facility] RockMjgvnhyQYPLLB6285-16-39 14:46:00 Test Item Value Reference Range Interpretation Comments HDL (test code = HDL) 38 [facility] RockAzyakwoOYWRVW6928-52-11 14:46:00 Test Item Value Reference Range Interpretation Comments CHD Risk (test code = CHD Risk) 4.79 4.00-7.30 [facility] IULUPCQAP3604-35-82 14:40:00 Test Item Value Reference Range Interpretation Comments Hgb A1C (test code = Hgb A1C) 10.1 [facility] AND [id number] 06:04:00 Test Item Value Reference Range Interpretation Comments Micro? (test code = Performed *NA*(09/09/14 Micro?) 12:04 AM) [facility] AND [id number] 06:04:00 Test Item Value Reference Range Interpretation Comments UA Urobilinogen (test code = UA <=1.0 mg/dL 0.1-1.0 Urobilinogen) [facility] AND [id number] 06:04:00 Test Item Value Reference Range Interpretation Comments UA Hyal Cast (test code = UA Hyal Cast) 3 <=2 [facility] AND [id number] 06:04:00 Test Item Value Reference Range Interpretation Comments UA Glucose (test code = UA >=1000 mg/dL Glucose) [facility] AND [id number] 06:04:00 Test Item Value Reference Range Interpretation Comments UA Protein (test code = UA Protein) 100 mg/dL [facility] [id number] 06:04:00 Test Item Value Reference Range Interpretation Comments UA RBC (test code = UA RBC) 1 <=2 [facility] AND [id number] 06:04:00 Test Item Value Reference Range Interpretation Comments UA WBC (test code = UA WBC) no gt <=5 [facility] AND [id number] 06:04:00 Test Item Value Reference Range Interpretation Comments UA Leuk Est (test Negative (09/09/14 12:04 code = UA Leuk Est) AM) [facility] AND [id number] 06:04:00 Test Item Value Reference Range Interpretation Comments UA Nitrite (test code Negative (09/09/14 12:04 = UA Nitrite) AM) [facility] AND [id number] 06:04:00 Test Item Value Reference Range Interpretation Comments UA Mucus (test code = UA Mucus) Few /LPF [facility] AND [id number] 06:04:00 Test Item Value Reference Range Interpretation Comments UA Blood (test code = Negative (09/09/14 12:04 UA Blood) AM) [facility] [id number] 06:04:00 Test Item Value Reference Range Interpretation Comments UA Bili (test code = Negative *NA*(09/09/14 UA Bili) 12:04 AM) [facility] [facility] [id number] 06:04:00 Test Item Value Reference Range Interpretation Comments UA Ketones (test code = UA Negative mg/dL Ketones) [facility] AND [id number] 06:04:00 Test Item Value Reference Range Interpretation Comments UA Color (test code = Yellow *NA*(09/09/14 UA Color) 12:04 AM) [facility] AND [id number] 06:04:00 Test Item Value Reference Range Interpretation Comments UA pH (test code = UA pH) 6.0 5.0-8.0 [facility] AND [id number] 06:04:00 Test Item Value Reference Range Interpretation Comments UA Spec Grav (test code = UA Spec Grav) 1.021 [facility] AND [id number] 06:04:00 Test Item Value Reference Range Interpretation Comments UA Turbidity (test code = Clear (09/09/14 12:04 UA Turbidity) AM) [facility]xcekqiULSSIXQKDA7185-10-74 04:42:00 Test Item Value Reference Range Interpretation Comments Segs (test code = Segs) 65.6 45.0-75.0 [facility] HospitalNggyxbnCRFOMZYMZN3109-74-20 04:42:00 Test Item Value Reference Range Interpretation Comments Lymphocytes (test code = Lymphocytes) 19.4 20.0-40.0 [facility] HospitalQhebtphQXIKQNZRHX8761-79-12 04:42:00 Test Item Value Reference Range Interpretation Comments Eosinophils (test code = Eosinophils) 1.1 <=4.0 [facility] HospitalOkvshcqJCQUVUAQOU8336-92-10 04:42:00 Test Item Value Reference Range Interpretation Comments Segs-Bands # (test code = Segs-Bands #) 8.0 1.5-8.1 [facility] HospitalUtdczyjQYGCSZLZWJ6156-26-16 04:42:00 Test Item Value Reference Range Interpretation Comments Basophils (test code = Basophils) 0.6 <=1.0 [facility] HospitalSsuwcwuTCCYPCWTBU6538-72-19 04:42:00 Test Item Value Reference Range Interpretation Comments Monocytes (test code = Monocytes) 13.3 2.0-12.0 [facility] HospitalSsdwgevDFXRNVLXTZ1212-15-21 04:42:00 Test Item Value Reference Range Interpretation Comments Monocytes # (test code = Monocytes #) 1.6 <=0.8 [facility] HospitalWyzjvfuBRXFDYLXTM4721-22-54 04:42:00 Test Item Value Reference Range Interpretation Comments Lymphocytes # (test code = Lymphocytes 2.4 1.0-5.5 #) [facility] HospitalNiaevdgDZTAWNEOSA2903-04-83 04:42:00 Test Item Value Reference Range Interpretation Comments Eosinophils # (test code = Eosinophils 0.1 <=0.5 #) [facility] HospitalBexmuvmONIYMMJGCO3457-14-24 04:42:00 Test Item Value Reference Range Interpretation Comments Basophils # (test code = Basophils #) 0.1 <=0.2 [facility] HospitalOllytuiMMNPFDXHRG8133-45-44 04:42:00 Test Item Value Reference Range Interpretation Comments PT (test code = PT) 13.1 s 12.0-14.7 [facility] HospitalCppxcxcKNWPYEAWRC1851-71-32 04:42:00 Test Item Value Reference Range Interpretation Comments PTT (test code = PTT) 39.7 s 22.9-35.8 [facility] HospitalBehtcqxPENHZXZPQG1543-09-31 04:42:00 Test Item Value Reference Range Interpretation Comments INR (test code = INR) 0.99 0.85-1.17 [facility] HospitalQibyxzaRLWDJZFEIU2822-33-55 04:42:00 Test Item Value Reference Range Interpretation Comments RBC (test code = RBC) 4.76 4.70-6.10 [facility] HospitalQxpxlrcOVGVFJJMER7557-01-90 04:42:00 Test Item Value Reference Range Interpretation Comments WBC (test code = WBC) 12.2 3.7-10.4 [facility] HospitalVyhfowsRVZMXXBEYW5104-27-79 04:42:00 Test Item Value Reference Range Interpretation Comments Hgb (test code = Hgb) 13.0 14.0-18.0 [facility] HospitalMyzmnfjVXSVMWQWGP8200-64-23 04:42:00 Test Item Value Reference Range Interpretation Comments MCV (test code = MCV) 83.1 80.0-94.0 [facility] HospitalUzdfkdcCRJDMSBERZ6791-69-20 04:42:00 Test Item Value Reference Range Interpretation Comments Hct (test code = Hct) 39.6 42.0-54.0 [facility] HospitalRxiqbvpTYFITGOZRP8303-89-13 04:42:00 Test Item Value Reference Range Interpretation Comments MCHC (test code = MCHC) 33.0 32.0-36.0 [facility] HospitalSbshpbrAFGOTAJQFH9680-70-21 04:42:00 Test Item Value Reference Range Interpretation Comments MCH (test code = MCH) 27.4 pg 27.0-31.0 [facility] HospitalHytieylGBPCWAELTL1316-69-45 04:42:00 Test Item Value Reference Range Interpretation Comments Platelet (test code = Platelet) 430 133-450 [facility] HospitalIqruvuqOOQEDKSDEJ9246-11-74 04:42:00 Test Item Value Reference Range Interpretation Comments RDW (test code = RDW) 13.5 11.5-14.5 [facility] HospitalPmorybuNRCQWOMUER1298-29-22 04:42:00 Test Item Value Reference Range Interpretation Comments MPV (test code = MPV) 7.5 7.4-10.4 [facility]2015-02-04 12:44:00 Test Item Value Reference Range Interpretation Comments BUN (test code = BUN) 22 7-22 [facility]2015-02-04 12:44:00 Test Item Value Reference Range Interpretation Comments Creatinine Lvl (test code = Creatinine 1.1 0.5-1.4 Lvl) [facility]2015-02-04 12:44:00 Test Item Value Reference Range Interpretation Comments eGFR (test code = eGFR) 80 [facility] GLUCOSE KEWCGSP6201-26-17 16:26:00 Test Item Value Reference Range Interpretation Comments Gluc POC Lifscn (test code = Gluc POC 220 70-99 H Lifscn) [facility] GLUCOSE XBNHSWQ8732-57-70 16:26:00 Test Item Value Reference Range Interpretation Comments Comment1 (test code = Comment1) Notify RN/MD [facility] GLUCOSE MRZIXIM3601-23-26 10:58:00 Test Item Value Reference Range Interpretation Comments Comment1 (test code = Comment1) Notify RN/MD [facility] GLUCOSE YGOPDRP5487-90-67 10:58:00 Test Item Value Reference Range Interpretation Comments Gluc POC Lifscn (test code = Gluc POC 293 70-99 H Lifscn) [facility]GqfqqzjYZQLDBQWG7550-82-71 10:35:30 Test Item Value Reference Range Interpretation Comments Bili Direct (test code = Bili Direct) 0.1 <=0.3 N [facility] TempleEbzlxqsMPKFVULGS7725-21-53 10:35:30 Test Item Value Reference Range Interpretation Comments Lactic Acid Lvl (test code = Lactic 0.9 0.5-2.2 N Acid Lvl) [facility] TempleLbrvjcsPXSIDWRKB1021-73-44 10:35:30 Test Item Value Reference Range Interpretation Comments Globulin (test code = Globulin) 3.5 2.0-4.0 N [facility] TempleJmtzwvsDJBUEFSMK0735-81-16 10:35:30 Test Item Value Reference Range Interpretation Comments A/G Ratio (test code = A/G Ratio) 0.7 0.7-1.6 N [facility] TempleCvnneycFRDBWSPFN0251-60-62 10:35:30 Test Item Value Reference Range Interpretation Comments Albumin Lvl (test code = Albumin Lvl) 2.3 3.5-5.0 L [facility] TempleQroufyhTXCUYXIDG5355-00-74 10:35:30 Test Item Value Reference Range Interpretation Comments Total Protein (test code = Total 5.8 6.4-8.4 L Protein) [facility] TempleMbeqgkmDOSZJTOTV4859-30-55 10:35:30 Test Item Value Reference Range Interpretation Comments B/C Ratio (test code = B/C Ratio) 18 6-25 N [facility] TempleSvgqfxjNKEVFDQFO5933-32-33 10:35:30 Test Item Value Reference Range Interpretation Comments AGAP (test code = AGAP) 14.2 10.0-20.0 N [facility] TempleTayklafOXHPKQOKV7663-74-30 10:35:30 Test Item Value Reference Range Interpretation Comments CO2 (test code = CO2) 26 24-32 N [facility] TempleUvplgalQRQKKEVEF6552-49-68 10:35:30 Test Item Value Reference Range Interpretation Comments Glucose Lvl (test code = Glucose Lvl) 284 70-99 H [facility] TempleLvspmgrPFNGHIJGW7724-70-16 10:35:30 Test Item Value Reference Range Interpretation Comments BUN (test code = BUN) 20 7-22 N [facility] TempleFnhvyxdMQGCNKOLT7169-73-10 10:35:30 Test Item Value Reference Range Interpretation Comments Bili Total (test code = Bili Total) 0.6 0.2-1.3 N [facility] TempleDahgkcnKRGZUOGBS7798-58-42 10:35:30 Test Item Value Reference Range Interpretation Comments AST (test code = AST) 28 <=37 N [facility] TempleDnesltlZJKIOMPET6020-59-67 10:35:30 Test Item Value Reference Range Interpretation Comments ALT (test code = ALT) 65 <=65 N [place] [address]-05-24 10:35:30 Test Item Value Reference Range Interpretation Comments Alk Phos (test code = Alk Phos) 226 39-136 H [facility] TempleKtkoylfYUZJDAXPZ9455-20-03 10:35:30 Test Item Value Reference Range Interpretation Comments eGFR (test code = eGFR) 80 [facility] TempleNcjsempEAHUGXFZE9368-68-47 10:35:30 Test Item Value Reference Range Interpretation Comments Calcium Lvl (test code = Calcium Lvl) 8.5 8.5-10.5 N [facility] TempleIdlhobhDOURKTXUL9677-01-78 10:35:30 Test Item Value Reference Range Interpretation Comments Sodium Lvl (test code = Sodium Lvl) 134 135-145 L [facility] TempleGxbkdadZTPYVXKNH1229-39-09 10:35:30 Test Item Value Reference Range Interpretation Comments Creatinine Lvl (test code = Creatinine 1.1 0.5-1.4 N Lvl) [facility] TempleWkmocazPKZRTSKKW2246-58-38 10:35:30 Test Item Value Reference Range Interpretation Comments Chloride Lvl (test code = Chloride Lvl) 98 95-109 N [facility] TempleKnmdsxkMFKNIDXNK3686-18-75 10:35:30 Test Item Value Reference Range Interpretation Comments Potassium Lvl (test code = Potassium 4.2 3.5-5.1 N Lvl) [facility] HospitalVyvglzvNBEYIJCJRQ3802-81-11 10:35:30 Test Item Value Reference Range Interpretation Comments Segs-Bands # (test code = Segs-Bands #) 6.4 1.5-8.1 N [facility] HospitalOymtoyzDSKCYUCRVA1421-63-82 10:35:30 Test Item Value Reference Range Interpretation Comments Basophils # (test code = Basophils #) 0.1 <=0.2 N [facility] HospitalPkeiychRHTJXJOETF9805-90-58 10:35:30 Test Item Value Reference Range Interpretation Comments Eosinophils # (test code = Eosinophils 0.3 <=0.5 N #) [facility] HospitalSrqblyxTPHLPFMECR1343-58-65 10:35:30 Test Item Value Reference Range Interpretation Comments Monocytes # (test code = Monocytes #) 1.4 <=0.8 H [facility] HospitalBgfbretWYAXTIWRBU4426-74-51 10:35:30 Test Item Value Reference Range Interpretation Comments Lymphocytes # (test code = Lymphocytes 3.2 1.0-5.5 N #) [facility] HospitalZanelgaRICEIOOKJM6651-01-99 10:35:30 Test Item Value Reference Range Interpretation Comments Lymphocytes (test code = Lymphocytes) 28.2 20.0-40.0 N [facility] HospitalNzmffesSOZMOGEDWO7335-45-95 10:35:30 Test Item Value Reference Range Interpretation Comments Segs (test code = Segs) 55.9 45.0-75.0 N [facility] HospitalNaknmxlVRLOBAPKMB0388-06-57 10:35:30 Test Item Value Reference Range Interpretation Comments Basophils (test code = Basophils) 0.7 <=1.0 N [facility] HospitalHsaolbtDMDMDUTYBA3522-60-51 10:35:30 Test Item Value Reference Range Interpretation Comments Eosinophils (test code = Eosinophils) 2.8 <=4.0 N [facility] HospitalRhbsgpcEYYXPRQQGT4661-28-49 10:35:30 Test Item Value Reference Range Interpretation Comments Monocytes (test code = Monocytes) 12.4 2.0-12.0 H [facility] HospitalJfvfvieLAZSRIKTVZ4847-28-21 10:35:30 Test Item Value Reference Range Interpretation Comments Sed Rate (test code = Sed Rate) 33 <=15 H [facility] HospitalXforbqwRMZINMWAAB9615-78-33 10:35:30 Test Item Value Reference Range Interpretation Comments Fibrinogen Lvl (test code = Fibrinogen 411 230-510 N Lvl) [facility] HospitalPpwduesGLMNPLNXPX6438-89-79 10:35:30 Test Item Value Reference Range Interpretation Comments MCV (test code = MCV) 83.2 80.0-94.0 N [facility] HospitalGwcgmicSDJBCMWDCF1004-98-09 10:35:30 Test Item Value Reference Range Interpretation Comments Platelet (test code = Platelet) 283 133-450 N [facility] HospitalCpfbabjBCYOFKRUCF1814-55-02 10:35:30 Test Item Value Reference Range Interpretation Comments RDW (test code = RDW) 13.3 11.5-14.5 N [facility] HospitalNjjwqnoDEUDUZWYTG6804-01-27 10:35:30 Test Item Value Reference Range Interpretation Comments MCHC (test code = MCHC) 32.6 32.0-36.0 N [facility] HospitalMnjkkrdXCDMQRIDNW0791-74-46 10:35:30 Test Item Value Reference Range Interpretation Comments MCH (test code = MCH) 27.1 pg 27.0-31.0 N [facility] HospitalSdihccaGKMPYFLJUR9058-72-25 10:35:30 Test Item Value Reference Range Interpretation Comments MPV (test code = MPV) 8.1 7.4-10.4 N [facility] HospitalSfpslphSNRTNOVTQT2583-80-22 10:35:30 Test Item Value Reference Range Interpretation Comments WBC (test code = WBC) 11.4 3.7-10.4 H [facility] HospitalUfwiuryBVEQNSQJPH4480-81-60 10:35:30 Test Item Value Reference Range Interpretation Comments RBC (test code = RBC) 4.48 4.70-6.10 L [facility] HospitalDzddhfcQYKDTESHSH7030-60-43 10:35:30 Test Item Value Reference Range Interpretation Comments Hct (test code = Hct) 37.3 42.0-54.0 L [facility] HospitalTlwykunROPXZFHECB4372-35-57 10:35:30 Test Item Value Reference Range Interpretation Comments Hgb (test code = Hgb) 12.1 14.0-18.0 L [facility] HospitalEkqtyhxJRTKOWMYAL8707-11-72 10:35:30 Test Item Value Reference Range Interpretation Comments CRP, High Sensitivity (test code = CRP, 86.0 High Sensitivity) [facility] GLUCOSE WINOEAF3743-20-62 08:10:00 Test Item Value Reference Range Interpretation Comments Comment1 (test code = Comment1) Notify RN/MD [facility] GLUCOSE ZABOVEL8676-47-80 08:10:00 Test Item Value Reference Range Interpretation Comments Gluc POC Lifscn (test code = Gluc POC 343 70-99 H Lifscn) [facility] TempleUwkgkryVZPLNYZBV6688-06-01 11:40:00 Test Item Value Reference Range Interpretation Comments Lactic Acid Lvl (test code = Lactic 1.0 0.5-2.2 N Acid Lvl) [facility] TemplePurjuxaIRDEYQMSZ8440-81-78 11:40:00 Test Item Value Reference Range Interpretation Comments Albumin Lvl (test code = Albumin Lvl) 2.4 3.5-5.0 L [facility] TempleNairnciRSUXESAUU3042-02-19 11:40:00 Test Item Value Reference Range Interpretation Comments Bili Direct (test code = Bili Direct) 0.1 <=0.3 N [facility] TempleLivocikOEIUSVJBK9168-40-16 11:40:00 Test Item Value Reference Range Interpretation Comments AST (test code = AST) 23 <=37 N [facility] TempleCqpawmjDGUPJJTLG9684-12-28 11:40:00 Test Item Value Reference Range Interpretation Comments ALT (test code = ALT) 73 <=65 H [facility] TempleMczqkzaRALEIVZPP9656-98-33 11:40:00 Test Item Value Reference Range Interpretation Comments Alk Phos (test code = Alk Phos) 219 39-136 H [facility] TempleYwfzdkuYHRJKONEB1720-71-87 11:40:00 Test Item Value Reference Range Interpretation Comments Total Protein (test code = Total 5.2 6.4-8.4 L Protein) [facility] TempleTieivtoAWZKXJXNM5579-10-89 11:40:00 Test Item Value Reference Range Interpretation Comments Bili Total (test code = Bili Total) 0.5 0.2-1.3 N [facility] TempleNvkqcsuEYMEEZOQM2103-75-65 11:40:00 Test Item Value Reference Range Interpretation Comments A/G Ratio (test code = A/G Ratio) 0.9 0.7-1.6 N [facility] TempleJplamraRULPIDFED5421-24-39 11:40:00 Test Item Value Reference Range Interpretation Comments Bili Indirect (test code = Bili 0.4 <=1.0 N Indirect) [facility] TempleOpfdcudMYGVMRPCE4555-13-40 11:40:00 Test Item Value Reference Range Interpretation Comments Globulin (test code = Globulin) 2.8 2.0-4.0 N [facility] TempleLwrcydwHFLLVUJXI8968-30-00 11:40:00 Test Item Value Reference Range Interpretation Comments eGFR (test code = eGFR) 80 [facility] TempleLedgtzzCJYOQVSBM1268-18-28 11:40:00 Test Item Value Reference Range Interpretation Comments Calcium Lvl (test code = Calcium Lvl) 8.2 8.5-10.5 L [facility] TempleVkqipaqMMMFDTPCK4877-78-21 11:40:00 Test Item Value Reference Range Interpretation Comments Sodium Lvl (test code = Sodium Lvl) 138 135-145 N [facility] TempleJkxbbywRQHPYBDBV2168-57-09 11:40:00 Test Item Value Reference Range Interpretation Comments Chloride Lvl (test code = Chloride Lvl) 104 95-109 N [facility] TempleOlgwzhwENVNMEUOA8488-38-29 11:40:00 Test Item Value Reference Range Interpretation Comments Potassium Lvl (test code = Potassium 4.4 3.5-5.1 N Lvl) [facility] TempleMozgeieTJLTQJOJT7642-11-73 11:40:00 Test Item Value Reference Range Interpretation Comments CO2 (test code = CO2) 26 24-32 N [facility] TempleLtzxghdDPVBYZDUR7149-30-38 11:40:00 Test Item Value Reference Range Interpretation Comments Creatinine Lvl (test code = Creatinine 1.1 0.5-1.4 N Lvl) [facility] TempleQilriypGWDSCCUMK4355-98-29 11:40:00 Test Item Value Reference Range Interpretation Comments Glucose Lvl (test code = Glucose Lvl) 183 70-99 H [facility] TempleWsctsixZTZKROOXV6610-90-58 11:40:00 Test Item Value Reference Range Interpretation Comments BUN (test code = BUN) 21 7-22 N [facility] TempleBzutvzcKNGPFNXTX9997-43-97 11:40:00 Test Item Value Reference Range Interpretation Comments AGAP (test code = AGAP) 12.4 10.0-20.0 N [facility] HospitalWoeevmrLZVZWOQQIH9522-33-20 11:40:00 Test Item Value Reference Range Interpretation Comments Hct (test code = Hct) 38.6 42.0-54.0 L [facility] HospitalPkmdtzhUKDTVCYSMN4713-33-85 11:40:00 Test Item Value Reference Range Interpretation Comments MCV (test code = MCV) 84.6 80.0-94.0 N [facility] HospitalZjctsnlUMTDOIEBEO4846-92-35 11:40:00 Test Item Value Reference Range Interpretation Comments RBC (test code = RBC) 4.57 4.70-6.10 L [facility] HospitalZuplmreCYZHRZUMAN0569-14-91 11:40:00 Test Item Value Reference Range Interpretation Comments Hgb (test code = Hgb) 12.4 14.0-18.0 L [facility] HospitalOgmxktsUVNENHFXAZ7581-61-72 11:40:00 Test Item Value Reference Range Interpretation Comments MCH (test code = MCH) 27.2 pg 27.0-31.0 N [facility] HospitalGwermmqJABKGHIRZI0700-58-03 11:40:00 Test Item Value Reference Range Interpretation Comments MCHC (test code = MCHC) 32.2 32.0-36.0 N [facility] HospitalBjidfdjDCTMDURIGC5290-56-90 11:40:00 Test Item Value Reference Range Interpretation Comments WBC (test code = WBC) 10.8 3.7-10.4 H [facility] HospitalZcmhmuiTIYPECMQXZ1919-95-55 11:40:00 Test Item Value Reference Range Interpretation Comments MPV (test code = MPV) 7.6 7.4-10.4 N [facility] HospitalPxddzfgBZCEKIPNUN6134-57-11 11:40:00 Test Item Value Reference Range Interpretation Comments RDW (test code = RDW) 13.4 11.5-14.5 N [facility] HospitalPqerktgDIDINFZIMX3549-42-20 11:40:00 Test Item Value Reference Range Interpretation Comments Platelet (test code = Platelet) 246 133-450 N [facility] HospitalNedeulmXNATBHLLPL5624-69-96 11:40:00 Test Item Value Reference Range Interpretation Comments Sed Rate (test code = Sed Rate) 24 <=15 H [facility] HospitalQldlzwcELLTMHPICX3531-74-39 11:40:00 Test Item Value Reference Range Interpretation Comments Fibrinogen Lvl (test code = Fibrinogen 503 230-510 N Lvl) [facility] HospitalBvrzvyrNRBGPSKBTN6289-27-46 11:40:00 Test Item Value Reference Range Interpretation Comments Basophils # (test code = Basophils #) 0.1 <=0.2 N [facility] HospitalMgxnuojTBSGFFTUCQ9904-74-81 11:40:00 Test Item Value Reference Range Interpretation Comments Eosinophils # (test code = Eosinophils 0.3 <=0.5 N #) [facility] HospitalMepnuwpUBFMLILKCN0989-01-40 11:40:00 Test Item Value Reference Range Interpretation Comments Segs-Bands # (test code = Segs-Bands #) 6.4 1.5-8.1 N [facility] HospitalBpthbylDYNXLCCUAM8633-87-23 11:40:00 Test Item Value Reference Range Interpretation Comments Lymphocytes # (test code = Lymphocytes 2.8 1.0-5.5 N #) [facility] HospitalBimyljhQTJRZBKVLM1891-95-03 11:40:00 Test Item Value Reference Range Interpretation Comments Basophils (test code = Basophils) 0.6 <=1.0 N [facility] HospitalZpfehyhSKTBLQCXZQ0288-08-52 11:40:00 Test Item Value Reference Range Interpretation Comments Monocytes (test code = Monocytes) 11.1 2.0-12.0 N [facility] HospitalApoupccYIDFLDICDV9594-46-45 11:40:00 Test Item Value Reference Range Interpretation Comments Eosinophils (test code = Eosinophils) 2.6 <=4.0 N [facility] HospitalMxwrxdfFSGBXKEOVF2410-43-24 11:40:00 Test Item Value Reference Range Interpretation Comments Monocytes # (test code = Monocytes #) 1.2 <=0.8 H [facility] HospitalNsfwexnFWRTNUNQQG3803-16-13 11:40:00 Test Item Value Reference Range Interpretation Comments Lymphocytes (test code = Lymphocytes) 26.4 20.0-40.0 N [facility] HospitalKzdpzspYNUXDDDRZJ1959-36-18 11:40:00 Test Item Value Reference Range Interpretation Comments Segs (test code = Segs) 59.3 45.0-75.0 N [facility] HospitalAecmeewIHXOHQVPOL8381-07-37 11:40:00 Test Item Value Reference Range Interpretation Comments Plt Morph (test code = Normal (12/20/2012 N Plt Morph) 06:40:00) [facility] HospitalMvfxsryZTHMDFWGPJ7039-99-41 11:40:00 Test Item Value Reference Range Interpretation Comments RBC Morph (test code = Normal (12/20/2012 N RBC Morph) 06:40:00) [facility]DfyzcfeUVPFPZSGNT4378-39-86 11:40:00 Test Item Value Reference Range Interpretation Comments CRP, High Sensitivity (test code = CRP, 18.5 High Sensitivity) [facility] TempleKwlomsyICTJVIFNC5949-97-20 09:50:00 Test Item Value Reference Range Interpretation Comments AGAP (test code = AGAP) 15.4 10.0-20.0 N [facility] TempleLjbhnaoAPAAOEUYJ9560-46-66 09:50:00 Test Item Value Reference Range Interpretation Comments eGFR (test code = eGFR) 90 [facility] TempleFmejyygZAPRTYLWG7566-98-77 09:50:00 Test Item Value Reference Range Interpretation Comments Sodium Lvl (test code = Sodium Lvl) 140 135-145 N [facility] TempleJeyhxsqDZFYNYVZE4426-25-60 09:50:00 Test Item Value Reference Range Interpretation Comments Potassium Lvl (test code = Potassium 4.4 3.5-5.1 N Lvl) [facility] TempleDekfvjuBYRNJZYAZ7259-60-13 09:50:00 Test Item Value Reference Range Interpretation Comments Chloride Lvl (test code = Chloride Lvl) 102 95-109 N [facility] TempleEgmuqekMZLJAWKSM7583-76-66 09:50:00 Test Item Value Reference Range Interpretation Comments Glucose Lvl (test code = Glucose Lvl) 234 70-99 H [facility] TempleQykeegkLSPWQKSTJ8818-20-81 09:50:00 Test Item Value Reference Range Interpretation Comments BUN (test code = BUN) 19 7-22 N [facility] TempleJqatxnuNGSPXGCHN8228-31-74 09:50:00 Test Item Value Reference Range Interpretation Comments Creatinine Lvl (test code = Creatinine 1.0 0.5-1.4 N Lvl) [facility] TempleQngtrskIFOOUCCVP6703-87-97 09:50:00 Test Item Value Reference Range Interpretation Comments CO2 (test code = CO2) 27 24-32 N [facility] TemplePuqiapyMTZPHMYIU6656-77-53 09:50:00 Test Item Value Reference Range Interpretation Comments Calcium Lvl (test code = Calcium Lvl) 8.6 8.5-10.5 N [facility] TempleSbjdryvGAOJHJZYG4920-33-46 09:50:00 Test Item Value Reference Range Interpretation Comments Bili Indirect (test code = Bili 0.3 <=1.0 N Indirect) [facility] TempleRlctlecSVXZDCJDE3539-52-04 09:50:00 Test Item Value Reference Range Interpretation Comments Bili Total (test code = Bili Total) 0.4 0.2-1.3 N [facility] TempleRtnybdkAZUHFETGA0459-64-68 09:50:00 Test Item Value Reference Range Interpretation Comments Albumin Lvl (test code = Albumin Lvl) 2.8 3.5-5.0 L [facility] TempleUnoiqutEODAKOJEC1508-58-27 09:50:00 Test Item Value Reference Range Interpretation Comments Bili Direct (test code = Bili Direct) 0.1 <=0.3 N [facility] TempleDeqkdnbROQIXFEHC9381-79-25 09:50:00 Test Item Value Reference Range Interpretation Comments ALT (test code = ALT) 100 <=65 H [facility] TempleFkutkjuBNCLBINEL7292-04-62 09:50:00 Test Item Value Reference Range Interpretation Comments A/G Ratio (test code = A/G Ratio) 0.9 0.7-1.6 N [facility] TempleMejxhnyBUJRVLUQD5316-14-68 09:50:00 Test Item Value Reference Range Interpretation Comments AST (test code = AST) 50 <=37 H [facility] TempleYamvcrgBOXKFIKRP4218-70-92 09:50:00 Test Item Value Reference Range Interpretation Comments Alk Phos (test code = Alk Phos) 266 39-136 H [facility] TempleTofbpouLAHOKVFIB8346-90-38 09:50:00 Test Item Value Reference Range Interpretation Comments Total Protein (test code = Total 5.8 6.4-8.4 L Protein) [facility] TempleDbrooqcFSUXKTXSM1535-51-95 09:50:00 Test Item Value Reference Range Interpretation Comments Globulin (test code = Globulin) 3.0 2.0-4.0 N [facility]FobcexlNJOUWGJEND9370-41-36 09:50:00 Test Item Value Reference Range Interpretation Comments Hct (test code = Hct) 39.7 42.0-54.0 L [facility] HospitalEdsjqhbMANDPEUCMW7829-92-35 09:50:00 Test Item Value Reference Range Interpretation Comments RDW (test code = RDW) 13.7 11.5-14.5 N [facility] HospitalKxltczsIMMANKJTZF8619-71-19 09:50:00 Test Item Value Reference Range Interpretation Comments Platelet (test code = Platelet) 344 133-450 N [facility] HospitalSbidrpbWKONTVVNXN6068-91-57 09:50:00 Test Item Value Reference Range Interpretation Comments MPV (test code = MPV) 7.7 7.4-10.4 N [facility] HospitalMlrzslrFPSTIHTQXK4356-75-73 09:50:00 Test Item Value Reference Range Interpretation Comments MCHC (test code = MCHC) 32.8 32.0-36.0 N [facility] HospitalIbkwmguFDKTDSEGPK0251-46-73 09:50:00 Test Item Value Reference Range Interpretation Comments MCV (test code = MCV) 85.2 80.0-94.0 N [facility] HospitalBmjkrkgIDPXSDRDBM5604-20-41 09:50:00 Test Item Value Reference Range Interpretation Comments MCH (test code = MCH) 27.9 pg 27.0-31.0 N [facility] HospitalQheocjiMNIDHLPQSH5513-73-91 09:50:00 Test Item Value Reference Range Interpretation Comments WBC (test code = WBC) 11.3 3.7-10.4 H [facility] HospitalFcttjmjROJVHAZHUO7140-66-77 09:50:00 Test Item Value Reference Range Interpretation Comments Hgb (test code = Hgb) 13.0 14.0-18.0 L [facility] HospitalJvfjycqQNBRHBVCJO3191-20-41 09:50:00 Test Item Value Reference Range Interpretation Comments RBC (test code = RBC) 4.67 4.70-6.10 L [facility] HospitalEpspmuhRQGWUFLJPP2560-05-01 09:50:00 Test Item Value Reference Range Interpretation Comments Sed Rate (test code = Sed Rate) 35 <=15 H [facility] HospitalYhmtchvHBTBTIISYP2661-43-13 09:50:00 Test Item Value Reference Range Interpretation Comments Basophils # (test code = Basophils #) 0.1 <=0.2 N [facility] HospitalDowmxwtITVFPKWHPS0204-38-43 09:50:00 Test Item Value Reference Range Interpretation Comments Eosinophils # (test code = Eosinophils 0.1 <=0.5 N #) [facility] HospitalJfrlrauETLCEKESXJ6881-02-52 09:50:00 Test Item Value Reference Range Interpretation Comments Monocytes # (test code = Monocytes #) 1.0 <=0.8 H [facility] HospitalXibdgayYWJZDEXKEH4739-23-73 09:50:00 Test Item Value Reference Range Interpretation Comments Lymphocytes # (test code = Lymphocytes 1.9 1.0-5.5 N #) [facility] HospitalDllvfpdIBRWWAANDN3681-55-28 09:50:00 Test Item Value Reference Range Interpretation Comments Segs-Bands # (test code = Segs-Bands #) 8.2 1.5-8.1 H [facility] HospitalTnocdidEKMMCHRNGP0723-30-17 09:50:00 Test Item Value Reference Range Interpretation Comments Basophils (test code = Basophils) 0.7 <=1.0 N [facility] HospitalXknrrzcPIDMQFEWBC0957-46-00 09:50:00 Test Item Value Reference Range Interpretation Comments Eosinophils (test code = Eosinophils) 1.1 <=4.0 N [facility] HospitalTuqkeneWLCGRSLJRP5832-77-62 09:50:00 Test Item Value Reference Range Interpretation Comments Monocytes (test code = Monocytes) 8.6 2.0-12.0 N [facility] HospitalAlwkqvqJWVCOLPCLL6288-96-75 09:50:00 Test Item Value Reference Range Interpretation Comments Segs (test code = Segs) 73.0 45.0-75.0 N [facility] HospitalZhelmjiKUSGMWAGYQ1234-38-57 09:50:00 Test Item Value Reference Range Interpretation Comments Plt Morph (test code = Normal (12/19/2012 N Plt Morph) 04:50:00) [facility] HospitalEpvptbeHCQIUTNZNX2053-72-13 09:50:00 Test Item Value Reference Range Interpretation Comments RBC Morph (test code = Normal (12/19/2012 N RBC Morph) 04:50:00) [facility] HospitalIbcyfxcBKSVVJOTFL4220-45-44 09:50:00 Test Item Value Reference Range Interpretation Comments Lymphocytes (test code = Lymphocytes) 16.6 20.0-40.0 L [facility] HospitalZlvtatuETHMMLNBVV2691-78-93 09:50:00 Test Item Value Reference Range Interpretation Comments CRP, High Sensitivity (test code = CRP, 11.7 High Sensitivity) [facility] TempleNsixyviUETEZTLCE1411-62-70 10:50:00 Test Item Value Reference Range Interpretation Comments Bili Indirect (test code = Bili 0.4 <=1.0 N Indirect) [facility] TempleVjiirzkVBCUWURJF7881-95-72 14:37:00 Test Item Value Reference Range Interpretation Comments Vanco Tr TND (test code = Vanco Tr TND) 1000 [facility] TempleMutspzgIITQYKZOS1363-45-76 14:37:00 Test Item Value Reference Range Interpretation Comments Vanco Tr (test code = Vanco Tr) 11.2 [facility] TempleEgmgcfvBIOWSOZXN2466-65-08 09:00:27 Test Item Value Reference Range Interpretation Comments Lactic Acid Lvl (test code = Lactic 0.7 0.5-2.2 N Acid Lvl) [facility] TempleVrwhzeoQHFUERNOE3495-02-56 09:53:00 Test Item Value Reference Range Interpretation Comments Uric Acid (test code = Uric Acid) 4.1 3.8-8.0 N [facility] TempleTetdogkZDZXSXJTP5996-40-97 09:53:00 Test Item Value Reference Range Interpretation Comments B/C Ratio (test code = B/C Ratio) 19 6-25 N [facility] HospitalReltfdfLHYZXRUEJR8566-60-04 09:53:00 Test Item Value Reference Range Interpretation Comments FSP (test code = FSP) (12/16/2012 04:53:00) N [facility] TempleQxooflpMHIJPSMBM4192-40-66 02:06:00 Test Item Value Reference Range Interpretation Comments Irwino Tr TND (test code = Vanco Tr TND) 2130 [facility] TempleNgjysecAYEEOWKLW6345-47-70 02:06:00 Test Item Value Reference Range Interpretation Comments Vanco Tr (test code = Vanco Tr) 7.7 [facility] HospitalQtqfwbiIFYARRQUGF8884-48-18 16:40:00 Test Item Value Reference Range Interpretation Comments CMV IgM (test code = CMV IgM) 0.1 [facility] HospitalPymxexjDYBUMWKPRU0143-03-99 16:40:00 Test Item Value Reference Range Interpretation Comments CMV IgG (test code = Non Reactive CMV IgG) *NA*(12/15/2012 11:40:00) [facility] HospitalOlyfnonJHYVIBHQTW0250-31-89 16:40:00 Test Item Value Reference Range Interpretation Comments Hep Be Ag (test code = Hep Be Ag) REACTIVE A [facility] RockKjzadkcOQZSZZXLZB8474-05-92 16:40:00 Test Item Value Reference Range Interpretation Comments Hep Be Ab (test code = Hep Be Ab) NONREACTIVE [facility] HospitalOwauwwpWMOOSLMUXI1263-53-96 16:40:00 Test Item Value Reference Range Interpretation Comments Hep C Ab (test code = Negative *NA*(12/15/2012 Hep C Ab) 11:40:00) [facility] HospitalWyskrmuQMWUVPTSTX3565-31-03 16:40:00 Test Item Value Reference Range Interpretation Comments Hep Bs Ag (test code Negative *NA*(12/15/2012 = Hep Bs Ag) 11:40:00) [facility] HospitalUbhsckgBPXLUQNOPG9679-72-57 16:40:00 Test Item Value Reference Range Interpretation Comments Hep Bs Ab (test code = Hep Bs Ab) no gt N [facility] HospitalSanqgowYXMWJJDSSD0615-13-49 16:40:00 Test Item Value Reference Range Interpretation Comments Hep B Core IgM (test Negative *NA*(12/15/2012 code = Hep B Core 11:40:00) IgM) [facility] HospitalLaznprhEYANBWDBLR8045-67-59 16:40:00 Test Item Value Reference Range Interpretation Comments Hep B Core Ab (test Negative *NA*(12/15/2012 code = Hep B Core Ab) 11:40:00) [facility] HospitalEyphpffVFRZMKRFAO4994-43-47 16:40:00 Test Item Value Reference Range Interpretation Comments Hep A Tot (test code Negative *NA*(12/15/2012 = Hep A Tot) 11:40:00) [facility] HospitalCzxdtycMNPNXDPRES0240-50-24 16:40:00 Test Item Value Reference Range Interpretation Comments EBV NA IgG (test code = EBV NA IgG) no gt H [facility] RockUuyjbeiITILHRDSQY7604-04-32 16:40:00 Test Item Value Reference Range Interpretation Comments EBV VCA IgG (test code = EBV VCA IgG) no gt H [facility] TaylorHkwhexzUZPAMEKGZU3728-72-90 16:40:00 Test Item Value Reference Range Interpretation Comments EBV VCA IgM (test code = EBV VCA IgM) no gt N [facility] TaylorannINFECTIOUS OTSVKNIO1761-45-85 16:40:00 Test Item Value Reference Range Interpretation Comments CMV PCR Qnt (log) (test code = CMV PCR no gt Qnt (log)) [facility]2013-05-18 16:40:00 Test Item Value Reference Range Interpretation Comments Source CMV PCR Qnt Blood *NA*(12/15/2012 (test code = Source CMV 11:40:00) PCR Qnt) [facility]2013-05-18 16:40:00 Test Item Value Reference Range Interpretation Comments CMV PCR Qnt (test Negative (12/15/2012 N code = CMV PCR Qnt) 11:40:00) [facility] TempleEdxztuaHUXWARCWU3228-96-28 10:14:00 Test Item Value Reference Range Interpretation Comments LDL (test code = LDL) 85 <=129 N [facility] TempleVoufeptIDVZPWUGO6789-41-98 10:14:00 Test Item Value Reference Range Interpretation Comments HDL (test code = HDL) 43 N [facility] TempleJgeakntQTEEZPOAL4375-61-26 10:14:00 Test Item Value Reference Range Interpretation Comments Chol (test code = Chol) 149 120-200 N [facility] TempleUpgpqwaGLSJEAYNR1594-60-72 10:14:00 Test Item Value Reference Range Interpretation Comments Trig (test code = Trig) 104 <=200 N [facility] TempleAymikhpONALCSJXH6711-19-57 10:14:00 Test Item Value Reference Range Interpretation Comments CHD Risk (test code = CHD Risk) 3.47 4.00-7.30 L [facility] HospitalBxilsuqNGGWKTURHD5697-65-99 10:14:00 Test Item Value Reference Range Interpretation Comments FSP (test code = FSP) (12/15/2012 05:14:00) N [facility]KizogsvUzcewzgiymzf6153-91-42 01:00:00 Test Item Value Reference Range Interpretation Comments Culture: Anaerobic (test code = Culture: Anaerobic) [facility] CenterUredsanMukhtpxvwtod6497-84-80 01:00:00 Test Item Value Reference Range Interpretation Comments Culture: Wound/Abscess w/Gram Stain (test code = Culture: Wound/Abscess w/Gram Stain) [facility] HospitalXpxnudhIVAZTALSOV0468-69-05 00:45:00 Test Item Value Reference Range Interpretation Comments FSP (test code = FSP) (12/14/2012 19:45:00) N [facility] HospitalIgutawtEVYPDPMMHB5260-67-47 00:45:00 Test Item Value Reference Range Interpretation Comments D-Dimer (test code = D-Dimer) 0.42 [facility] HospitalJwiqaznXKZWCNJJQT3070-92-12 00:45:00 Test Item Value Reference Range Interpretation Comments Fibrinogen Lvl (test code = Fibrinogen 524 230-510 H Lvl) [facility] TempleVjukslrYEMCTAOKK3837-18-96 23:45:00 Test Item Value Reference Range Interpretation Comments Hgb A1C (test code = Hgb A1C) 12.0 [facility] TempleOafvcqrDEKFEPRJF0571-45-47 23:45:00 Test Item Value Reference Range Interpretation Comments TSH (test code = TSH) 0.806 0.360-3.740 N [facility] TempleXzezzryBQNSNFXMF0309-34-59 23:45:00 Test Item Value Reference Range Interpretation Comments Hgb A1C (test code = Hgb A1C) 12.0 [facility] CenterVhotaiwEirgrdlhjyqh6121-42-12 23:45:00 Test Item Value Reference Range Interpretation Comments Culture: Blood (test code = Culture: Blood) [facility] CenterOebojdfNfzgpugiitzd9146-95-38 23:30:00 Test Item Value Reference Range Interpretation Comments Culture: Blood (test code = Culture: Blood) [facility]
--- NOTE | 2023-06-03 07:00 | EDPHYS ---
Physician Documentation [facility] Name: Douglas Carrillo Age: 57 yrs Sex: Male : 1965 Arrival Date: 06/03/2023 Time: 05:54 Bed Hall14 Private MD: ED Physician Warren Domingo HPI: 06/03 06:22 This 57 yrs old Male presents to ER via EMS with complaints of Hyperglycemia. rt 06:22 Patient with insulin-dependent diabetes mellitus presents to the ED from residential rt with hyperglycemia. Patient states that he feels at his baseline, denies any complaints at this time. Symptoms are moderate in severity, no other aggravating alleviating factors.. Historical: - Allergies: 05:58 Neostigmine Methylsulfate; rv 05:58 Sulfa (Sulfonamide Antibiotics); rv - PMHx: 05:58 CVA; Diabetes - IDDM; GERD; Hypertension; rv - Immunization history:: Adult Immunizations up to date. - Social history:: Smoking status: unknown. - Family history:: not pertinent. ROS: 06:22 Constitutional: Negative for fever, chills, and weight loss, Cardiovascular: Negative rt for chest pain, palpitations, and edema, Respiratory: Negative for shortness of breath, cough, wheezing, and pleuritic chest pain, Abdomen/GI: Negative for abdominal pain, nausea, vomiting, diarrhea, and constipation, Skin: Negative for injury, rash, and discoloration, Neuro: Negative for headache, weakness, numbness, tingling, and seizure, Psych: Negative for depression, anxiety, suicide ideation, homicidal ideation, and hallucinations, Exam: 06:22 Constitutional: This is a well developed, well nourished patient who is awake, alert, rt and in no acute distress. Chest/axilla: Normal chest wall appearance and motion. Nontender with no deformity. No lesions are appreciated. Cardiovascular: Regular rate and rhythm with a normal S1 and S2. No gallops, murmurs, or rubs. Normal PMI, no JVD. No pulse deficits. Respiratory: Lungs have equal breath sounds bilaterally, clear to auscultation and percussion. No rales, rhonchi or wheezes noted. No increased work of breathing, no retractions or nasal flaring. Skin: Warm, dry with normal turgor. Normal color with no rashes, no lesions, and no evidence of cellulitis. MS/ Extremity: Pulses equal, no cyanosis. Neurovascular intact. Full, normal range of motion. 06:22 Neck: Tracheostomy in place, no discharge, 06:22 ECG was reviewed by the Attending Physician. 06:22 Abdomen/GI: PEG tube in place, no abdominal tenderness or distention, Vital Signs: 05:55 BP 128 / 66; Pulse 88; Resp 18; Temp 98.3; Pulse Ox 100% ; rv 08:22 BP 107 / 52; Pulse 72; Resp 18; Pulse Ox 97% on 5 lpm Simple Mask; ph 08:24 Weight 60 kg; ph MDM: 05:58 Patient medically screened. rt 06:59 Differential Diagnosis DKA, sepsis, UTI, pneumonia, hyperglycemia, dehydration. Data rt reviewed: vital signs, nurses notes, lab test result(s), EKG, radiologic studies. Consideration of Admission/Observation Patient was admitted/placed on observation. Management of patient was discussed with the following: Hospitalist: Agrees to admit. I considered the following discharge prescriptions or medication management in the emergency department Medications were administered in the Emergency Department. See MAR. Care significantly affected by the following chronic conditions: Diabetes. Counseling: I had a detailed discussion with the patient and/or guardian regarding the historical points, exam findings, and any diagnostic results supporting the discharge/admit diagnosis, lab results, radiology results, the need for further work-up and treatment in the hospital. Response to treatment: the patient's symptoms have mildly improved after treatment. 06/03 06:00 Order name: Troponin High Sensitivity; Complete Time: 06:51 rt 06/03 06:00 Order name: CBC with Diff rt 06/03 06:00 Order name: CMP; Complete Time: 06:51 rt 06/03 06:00 Order name: UAM; Complete Time: 06:51 rt 06/03 06:15 Order name: Glucose, Ancillary Testing; Complete Time: 06:22 EDMS 06/03 06:43 Order name: Urine Culture EDMS 06/03 06:55 Order name: Blood Culture Adult (2) rt 06/03 06:55 Order name: Lactate w/ 2H reflex if indic. rt 06/03 06:55 Order name: Protime (+inr) rt 06/03 06:55 Order name: Ptt, Activated rt 06/03 06:55 Order name: ABG rt 06/03 06:59 Order name: Glucose, Ancillary Testing; Complete Time: 07:13 EDMS 06/03 08:10 Order name: CBC Smear Scan EDMS 06/03 09:05 Order name: BMP ph 06/03 10:01 Order name: Basic Metabolic Panel EDMS 06/03 10:32 Order name: Glucose ph 06/03 11:11 Order name: Glucose Level EDMS 06/03 11:17 Order name: Phosphorus EDMS 06/03 11:54 Order name: Glucose ph 06/03 12:47 Order name: Glucose Level EDMS 06/03 13:22 Order name: BMP ph 06/03 13:22 Order name: CBC with Diff ph 06/03 14:32 Order name: CBC with Automated Diff EDMS 06/03 14:42 Order name: Basic Metabolic Panel EDMS 06/03 15:23 Order name: Glucose ph 06/03 15:44 Order name: Glucose, Ancillary Testing EDMS 06/03 16:02 Order name: CBC Smear Scan EDMS 06/03 16:06 Order name: Glucose Level EDMS 06/03 16:34 Order name: Type and Screen EDMS 06/03 17:01 Order name: Glucose, Ancillary Testing EDMS 06/03 17:57 Order name: Glucose, Ancillary Testing EDMS 06/03 18:43 Order name: Basic Metabolic Panel EDMS 06/03 19:33 Order name: Glucose, Ancillary Testing EDMS 06/03 06:21 Order name: Chest Single View XRAY rt 06/03 06:00 Order name: EKG; Complete Time: 06:00 rt 06/03 06:00 Order name: EKG - Nurse/Tech; Complete Time: 06:17 rt EC:22 Rate is 82 beats/min. Rhythm is regular, Normal Sinus Rhythm with No ectopy, PACs. QRS rt [place] is Normal. MI interval is normal. QRS interval is normal. QT interval is normal. No Q waves. Clinical impression: NSR w/ Non-specific ST/T Changes. Administered Medications: 06:17 Drug: NS 0.9% IV 1000 ml IV at 1 bolus Per protocol; 1000 mL bolus Route: IV; Rate: 1 rv bolus; Site: right antecubital; 08:21 Follow up: Response: No adverse reaction; IV Status: Completed infusion; IV Intake: ph 1000ml 06:28 Drug: Insulin Regular Human IVP 10 units IVP once {Co-Signature: rv (Bimal Cardenas RN).} {Note: bgl >500.} Route: IVP; Site: right antecubital; 08:22 Follow up: Response: No adverse reaction ph 08:35 Drug: Insulin Drip - (Insulin Regular Human IVP 100 units, NS 0.9% IV 100 ml) IV at ph calculated rate continuous; Standard concentration 1unit/ml; Dose for DKA is 0.1 units/kg/hr {Co-Signature: hb (Shameka Humphrey RN).} Route: IV; Rate: calculated rate; Site: right forearm; 08:35 Drug: Rocephin IV 2 grams IV at calculated rate once; Given slow IV push per pharmarcy ph instructions Route: IV; Rate: calculated rate; Site: right forearm; Disposition Summary: 06/03/23 06:59 Hospitalization Ordered Notes: Hospitalization Status: Inpatient Admission rt Provider: Sangeeta Berg rt Condition: Fair rt Problem: new rt Symptoms: are unchanged rt Bed/Room Type: Standard rt Location: Intensive Care Unit(06/03/23 18:43) dw Room Assignment: 2-(06/03/23 18:43) dw Diagnosis - Diabetic ketoacidosis rt - UTI rt - Acute kidney injury rt - Hypernatremia rt Forms: - Medication Reconciliation Form rt - SBAR form rt - Leadership Thank You Letter rt Critical care time excluding procedures: 06:59 Critical care time: Bedside Care: 30 minutes, Consultation: 5 minutes. Total time: 35 rt minutes Signatures: Dispatcher [employer] Cassidy Soriano RN RN dw Williams, Irene, RN RN iw Luiz Blair MD MD rn Hall, Patricia, RN RN Bimal Cardenas RN Warren Wong MD MD rt Enrique Castro RN RN la4 Vicente, Ronaldo RN rv Baxter, Heather RN hb Corrections: (The following items were deleted from the chart) 10:06 06:59 Telemetry/MedSurg (Inpatient) rt iw 10:06 06:59 rt iw 18:43 10:06 [facility] ER HOLD iw dw 18:43 10:06 ERHOLD- iw dw
--- NOTE | 2023-06-03 07:00 | ER ---
Nurse's Notes [facility] Name: Douglas Carrillo Age: 57 yrs Sex: Male : 1965 Arrival Date: 06/03/2023 Time: 05:54 Bed Hall14 Private MD: Diagnosis: Diabetic ketoacidosis;UTI;Acute kidney injury;Hypernatremia Presentation: 06/03 05:55 Chief complaint: EMS states: pt is from [facility], with high blood sugar. rv insulin was administered, still unable to control blood sugar. blood sugar is reading high. Coronavirus screen: At this time, the client does not indicate any symptoms associated with coronavirus-19. Ebola Screen: No symptoms or risks identified at this time. Initial Sepsis Screen: Does the patient meet any 2 criteria? No. Patient's initial sepsis screen is negative. Does the patient have a suspected source of infection? No. Patient's initial sepsis screen is negative. Risk Assessment: Do you want to hurt yourself or someone else? Patient reports no desire to harm self or others. Onset of symptoms was June 03, 2023. 05:55 Method Of Arrival: EMS: [facility] rv 05:55 Acuity: EMMANUEL 2 rv Triage Assessment: 05:58 General: Appears comfortable, Behavior is calm, cooperative. Pain: Denies pain. Neuro: rv Level of Consciousness is awake, alert, obeys commands, Oriented to person, place, time. Cardiovascular: Capillary refill Patient's skin is warm and dry. Respiratory: Airway is patent Respiratory effort is even, unlabored. GI: No signs and/or symptoms were reported involving the gastrointestinal system. : No signs and/or symptoms were reported regarding the genitourinary system. Derm: Skin is intact. Historical: - Allergies: 05:58 Neostigmine Methylsulfate; rv 05:58 Sulfa (Sulfonamide Antibiotics); rv - PMHx: 05:58 CVA; Diabetes - IDDM; GERD; Hypertension; rv - Immunization history:: Adult Immunizations up to date. - Social history:: Smoking status: unknown. - Family history:: not pertinent. Screenin:59 [facility] ED Fall Risk Assessment (Adult) History of falling in the last 3 months, rv including since admission Yes- fall prone (multiple falls) (3 pts) Score/Fall Risk Level 3 or more points = High Risk Oriented to surroundings, Maintained a safe environment, Educated pt \T\ family on fall prevention, incl call for assistance when getting out of bed, Assessed \T\ reinforced patient's understanding of fall precautions, Provided non-skid footwear, Hourly rounding (assess needs \T\ fall precautionary measures) done, Used ambulatory aids as needed (educated on \T\ assisted with), Used gait belt as appropriate Implemented a Fall Risk Plan of Care, Apply high fall risk patient identification: yellow non skid footwear/ fall signage, Placed fall mat w/ non beveled edge next to bed, Activated bed/chair alarm, Remained w/in arm's length of patient and in sight while toileting, Offered frequent toileting (1:1 observation), Remained with patient while ambulating, Utilized family, sitter, or virtual cardiac rehabilitation specialist as indicated. [facility] ED Fall Risk Assessment (Adult) History of falling in the last 3 months, including since admission. Abuse screen: Denies threats or abuse. Denies injuries from another. Nutritional screening: No deficits noted. Tuberculosis screening: No symptoms or risk factors identified. Vital Signs: 05:55 BP 128 / 66; Pulse 88; Resp 18; Temp 98.3; Pulse Ox 100% ; rv 08:22 BP 107 / 52; Pulse 72; Resp 18; Pulse Ox 97% on 5 lpm Simple Mask; ph 08:24 Weight 60 kg; ph ED Course: 05:55 Patient arrived in ED. rv 05:57 Warren Domingo MD is Attending Physician. rt 05:58 Triage completed. rv 05:58 Arm band placed on right wrist. rv 06:00 No provider procedures requiring assistance completed. rv 06:00 Maintain EMS IV. Dressing intact. Good blood return noted. Site clean \T\ dry. Gauge \T\ rv site: 20RAC. 06:10 Bimal Cardenas RN is Primary Nurse. rv 06:50 Chest Single View XRAY In Process Unspecified. EDMS 06:58 Sangeeta Berg MD is Hospitalizing Provider. rt 08:05 by me, sent to lab. First set of blood cultures drawn by me. Patient admitted, IV ph remains in place. 08:20 Inserted saline lock: 22 gauge in right forearm, using aseptic technique. Blood ph collected. 08:21 Ptt, Activated Sent. ph 08:21 Protime (+inr) Sent. ph 08:21 Lactate w/ 2H reflex if indic. Sent. ph 09:51 BMP Sent. ph Administered Medications: 06:17 Drug: NS 0.9% IV 1000 ml IV at 1 bolus Per protocol; 1000 mL bolus Route: IV; Rate: 1 rv bolus; Site: right antecubital; 08:21 Follow up: Response: No adverse reaction; IV Status: Completed infusion; IV Intake: ph 1000ml 06:28 Drug: Insulin Regular Human IVP 10 units IVP once {Co-Signature: rv (Bimal Cardenas RN).} {Note: bgl >500.} Route: IVP; Site: right antecubital; 08:22 Follow up: Response: No adverse reaction ph 08:35 Drug: Insulin Drip - (Insulin Regular Human IVP 100 units, NS 0.9% IV 100 ml) IV at ph calculated rate continuous; Standard concentration 1unit/ml; Dose for DKA is 0.1 units/kg/hr {Co-Signature: etelvina (Shameka Humphrey RN).} Route: IV; Rate: calculated rate; Site: right forearm; 08:35 Drug: Rocephin IV 2 grams IV at calculated rate once; Given slow IV push per [employer] ph instructions Route: IV; Rate: calculated rate; Site: right forearm; Medication: 06:00 VIS not applicable for this client. rv Intake: 08:21 IV: 1000ml; Total: 1000ml. ph Outcome: 06:59 Decision to Hospitalize by Provider. rt 21:45 Admitted to ICU accompanied by nurse, via stretcher, me1 21:45 Admitted to ICU accompanied by nurse, via stretcher, room 2, with oxygen, on monitor, me1 with chart, Report called to FELIBERTO Forbes 21:47 Condition: stable me1 21:47 Patient left the ED. me1 Signatures: Dispatcher [employer] Tosha Vazquez RN RN Bimal Cardenas, RN Warren Wong MD MD rt Breann Solitario RN RN me1 Enrique Castro RN RN la4 Vicente, Ronaldo RN rv Baxter, Heather RN hb
--- NOTE | 2023-06-03 07:33 | P.HP ---
Certification for Inpatient Patient admitted to: Inpatient With expected LOS: <2 Midnights Patient will require the following post-hospital care: None Practitioner: I am a practitioner with admitting privileges, knowledge of patient current condition, hospital course, and medical plan of care. Services: Services provided to patient in accordance with Admission requirements found in Title 42 Section 412.3 of the Code of Federal Regulations Patient History Date of Service: 06/03/23 Reason for admission: DKA History of Present Illness: 57-year-old male with a past medical history CVA status post tracheostomy, PEG tube, chronic hypoxic respiratory failure, recurrent aspiration pneumonia, hypothyroidism, diabetes mellitus type 1, COPD, hyperlipidemia, chronic indwelling Ortega, chronic kidney disease stage IV presents to the emergency room Via EMS from [facility]. Limited HPI due patient has trach, does not speak. Plan to admit for hyponatremia, acute kidney injury, diabetic ketoacidosis, acute cystitis. Nephrology consulted for Acute on chronic kidney injury. Laboratory evaluation sodium 156, anion gap 20, acute on chronic kidney injury BUN 122, creatinine 3.95 estimated GFR 17 glucose 1138, leukoesterase greater than 500 UA positive for yeast, ABG pending, CBC leukocytosis 14.8, normocytic anemia 7.8 26.4 chest x-ray Allergies Sulfa (Sulfonamide Antibiotics) Allergy (Verified 05/13/19 16:25) Itching/Hives/Rash Home Medications: Acetaminophen 2 tab FT Q4H PRN 10/22/22 Amlodipine [Norvasc*] 1 tab FT DAILY 10/22/22 Atorvastatin Calcium [Lipitor*] 1 tab FT BEDTIME 10/22/22 Budesonide [Pulmicort*] 2 ml IH Q12H 10/22/22 Ferrous Sulfate 7.5 ml FT Q12H 10/22/22 Lactulose [Enulose] 30 ml FT Q6H PRN 10/22/22 Levothyroxine Sodium 1 tab FT DAILY 10/22/22 Omeprazole 20 mg FT DAILY 10/22/22 Ondansetron [Zofran (Odt)*] 1 tab FT Q6H PRN 10/22/22 Tamsulosin HCl [Flomax] 1 cap FT BEDTIME 10/22/22 Nepro 240 ml FT QID bot 10/24/22 Aspirin [Aspirin EC 81 MG] 81 mg FT DAILY 12/16/22 Escitalopram Oxalate [Lexapro] 1 tab FT DAILY 12/16/22 Ipratropium/Albuterol Sulfate [Iprat-Albut 0.5-3(2.5) mg/3 ml] 3 ml IH Q6H 12/16/22 Lactobacillus Rhamnosus GG [Culturelle] 1 cap FT BID 12/16/22 Insulin Glargine,Hum.rec.anlog [Semglee] 15 unit SQ Q12HR ml 12/27/22 Insulin -Regular Human [Novolin -R*] See Protocol SQ Q6HR@0000,0600,1200,1800 ml 01/13/23 Potassium Chloride 10 meq FT DAILY 01/24/23 Ticagrelor [Brilinta*] 90 mg FT BID 01/25/23 carvediloL [Coreg*] 6.25 mg FT BID 01/25/23 Albuterol Neb [Proventil 0.083% Neb Soln] 2.5 mg NEB [id number] PRN #60 amp 02/09/23 Ipratropium Neb [Atrovent*] 0.5 mg NEB [id number] PRN #60 amp 02/09/23 Na Bicarb Tab [Sodium Bicarb 325 MG Tab*] 650 mg PO DAILY #60 tab 02/09/23 Pantoprazole Granules [Protonix Granules*] 40 mg FT DAILYAC #30 packet 02/09/23 Sucralfate [Carafate*] 10 ml FT QID #1000 02/09/23 - Past Medical/Surgical History Diabetic: Yes -: DM I -: CKD IV (Dr. Edmonds) -: CAD -: Hypertension -: Hyperlipidemia -: PVD -: History TIA/CVA -: Congestive Heart Failure -: Appendectomy -: Left below-knee amputation -: Multiple surgeries to the right lower extremity -: Right foot all toes amputated- february 2019 Psychosocial/ Personal History: Patient lives at [facility]. - Family History Mother -: Cancer - Social History Alcohol use: Yes CD- Drugs: No Caffeine use: Yes Review of Systems is unable to be obtained General: Fever, Chills Physical Examination - Physical Exam General: Alert, Other (nonverbal secondary to tracheostomy, ) HEENT: Atraumatic, Normocephalic, Other (tachestomy) Neck: Supple, 2+ carotid pulse no bruit, JVD not distended Respiratory: Normal air movement Cardiovascular: No edema, Normal pulses Capillary refill: <2 Seconds Gastrointestinal: Normal bowel sounds, Soft and benign, Other (peg placement) Musculoskeletal: Other (genernalized weaknes) Neurological: Other (Awake, eyes opent to verbal, responds with head nods) Urinary: Ortega catheter (chronic indwelling ortega catheter) External genitalia: No edema - Studies Laboratory Data (last 24 hrs) 06/03/23 06/03/23 06:05 06:05 WBC 14.80 H Hgb 7.8 L Hct 26.4 L Plt Count 371 Sodium 156 H* Potassium 5.1 BUN 122 H Creatinine 3.95 H Glucose 1138 H* Total Bilirubin 0.5 AST 8 L ALT 49 Alkaline Phosphatase 318 H Assessment and Plan - Plan Assessment and plan DKA Admit to ICU insulin drip, every hour blood sugars, every 4 hours BMPs, Trend electrolytes replace as needed Acidosis Repeat ABG Change IVF to 1/2NS per nephrology CKD-Stage II KATLYN likely due to hypovolemia Nephrology consult CKD IIIb with nephrotic range proteinuria -No NSAIDs -Continue aggressive IVF -Continue ortega Hypernatremia/ Dehydration -Change IVF 1/2NS per nephrology Hyperkalemia/ Hypokalemia -Replete as ordered Acute on chronic respiratory failure Ill-defined opacities in the right lung base could reflect pneumonia or pneumonitis Chronic tracheostomy O2 keep sats greater than 92% EXAM DESCRIPTION: RAD - Chest Single View - 06/03/2023 6:48 am COMPARISON: Chest Single View dated 02/24/2023; Chest Single View dated 02/06/2023 ; Chest Single View dated 02/03/2023; Chest Single View dated 02/01/2023 FINDINGS: Lines: Tracheostomy. Lungs: Ill-defined opacities in the right lung base. Pleural: No significant pleural effusions or pneumothorax. Cardiac: The heart size is within normal limits. Mediastinum: Within normal limits. Bones: No acute fractures. Other: None IMPRESSION: Ill-defined opacities in the right lung base could reflect pneumonia or pneumonitis, such as from aspiration. IV Zosyn leukocytosis HTN with CKD/ CHF -Hold antihypertensives at this time IRENA, daily weight LEFT VENTRICULAR WALL MOTION: DECREASED LEFT VENTRICULAR COMPLIANCE DOPPLER/COLOR FLOW: DECREASED LEFT VENTRICULAR COMPLIANCE COMMENTS: 1. DIASTOLIC DYSFUNCTION 2. NORMAL EJECTION FRACTION 3. NO EFFUSION Severe Hypoalbuminemia -Start tube feeds as tolerated Acute Cystitis with Hematuria -Follow up culture -Continue Abx BPH with LUTS Hx urinary retention Chronic indwelling Ortega catheter -Restart tamsulosin as tolerated Discharge Plan: Care Home - Advance Directives Does patient have a Living Will: No Does patient have a Durable POA for Healthcare: Yes - Code Status/Comfort Care Code Status: Full Code Critical Care: Yes Time Spent Managing Pts Care (In Minutes): 70
--- NOTE | 2023-06-03 07:38 | RAD REPORT ---
EXAM DESCRIPTION: RAD - Chest Single View - 06/03/2023 6:48 am CLINICAL HISTORY: hyperglycemia COMPARISON: Chest Single View dated 02/24/2023; Chest Single View dated 02/06/2023; Chest Single View dated 02/03/2023; Chest Single View dated 02/01/2023 FINDINGS: Lines: Tracheostomy. Lungs: Ill-defined opacities in the right lung base. Pleural: No significant pleural effusions or pneumothorax. Cardiac: The heart size is within normal limits. Mediastinum: Within normal limits. Bones: No acute fractures. Other: None IMPRESSION: Ill-defined opacities in the right lung base could reflect pneumonia or pneumonitis, suc h as from aspiration.
[2023-06-03] MEDS ORDERED: INSULIN -REGULAR HUMAN 100 UNIT in NA CHLORIDE 0.9% 100 ML IV SCH (08:00)
[2023-06-03 08:03] LABS: Arterial Blood Carboxyhemoglob 1.3 % (0-1.5); Blood Gas Oxyhemoglobin 58.4 % (94-97); Blood O2 Saturation 60.3 % (92-98.5)
[2023-06-03 08:09] LABS: Blood Morphology Comment NOT SEEN (NOT SEEN); Platelet Estimate ADEQ; White Blood Cell Scan OK (OK)
[2023-06-03 08:10] LABS: Toxic Granulation NOTED
[2023-06-03] MEDS ORDERED: NA CHLORIDE 0.9% 1,000 ML IV SCH ×2 (08:30→15:34)
[2023-06-03] MEDS: INSULIN -REGULAR HUMAN 100 UNIT in NA CHLORIDE 0.9% 100 ML IV SCH ×5 (08:30→22:08)
[2023-06-03] MEDS ORDERED: D5 0.45 NS 1,000 ML IV SCH (08:30)
[2023-06-03] MEDS ORDERED: ONDANSETRON 4 MG/2 ML VIAL IV PRN (08:30)
[2023-06-03] MEDS ORDERED: CEFTRIAXONE 2000 MG/VIAL ONE (08:31)
[2023-06-03] MEDS ORDERED: NA CHLORIDE 0.9% 100 ML ONE ×3 (08:32→18:23)
[2023-06-03 08:36] LABS: Protime INR 0.94
[2023-06-03] MEDS: PIPER TAZO 3.375 GM in NA CHLORIDE 0.9% 100 ML IV SCH ×2 (09:00→17:00)
[2023-06-03 09:55] LABS: Potassium 3.2 mEq/L (3.5-5.1)
--- NOTE | 2023-06-03 10:11 | P.CNS ---
Date of Consult: 06/03/23 Reason for Consult: KATLYN/ Hypernatremia Requesting Physician: Sangeeta Berg Chief Complaint: Hyperglycemia History of Present Illness: 57-year-old male with a past medical history CVA status post tracheostomy, PEG tube, chronic hypoxic respiratory failure, recurrent aspiration pneumonia, hypothyroidism, diabetes mellitus type 1, COPD, hyperlipidemia, chronic indwelling Ortega, chronic kidney disease stage IV presents to the emergency room Via EMS from [facility]. Plan to admit for hyponatremia, acute kidney injury, diabetic ketoacidosis, acute cystitis 06:22 This 57 yrs old Male presents to ER via EMS with complaints of Hyperglycemia. rt 06:22 Patient with insulin-dependent diabetes mellitus presents [facility] the ED [facility] rt with hyperglycemia. Patient states that he feels at his baseline, denies any complaints at this time. Symptoms are moderate in severity, no other aggravating alleviating factors.. Limited HPI/ ROS due to mental status. Allergies Sulfa (Sulfonamide Antibiotics) Allergy (Verified 05/13/19 16:25) Itching/Hives/Rash Home medications list reviewed: Yes Home Medications: Acetaminophen 2 tab FT Q4H PRN 10/22/22 Amlodipine [Norvasc*] 1 tab FT DAILY 10/22/22 Atorvastatin Calcium [Lipitor*] 1 tab FT BEDTIME 10/22/22 Budesonide [Pulmicort*] 2 ml IH Q12H 10/22/22 Ferrous Sulfate 7.5 ml FT Q12H 10/22/22 Lactulose [Enulose] 30 ml FT Q6H PRN 10/22/22 Levothyroxine Sodium 1 tab FT DAILY 10/22/22 Omeprazole 20 mg FT DAILY 10/22/22 Ondansetron [Zofran (Odt)*] 1 tab FT Q6H PRN 10/22/22 Tamsulosin HCl [Flomax] 1 cap FT BEDTIME 10/22/22 Nepro 240 ml FT QID bot 10/24/22 Aspirin [Aspirin EC 81 MG] 81 mg FT DAILY 12/16/22 Escitalopram Oxalate [Lexapro] 1 tab FT DAILY 12/16/22 Ipratropium/Albuterol Sulfate [Iprat-Albut 0.5-3(2.5) mg/3 ml] 3 ml IH Q6H 12/16/22 Lactobacillus Rhamnosus GG [Culturelle] 1 cap FT BID 12/16/22 Insulin Glargine,Hum.rec.anlog [Semglee] 15 unit SQ Q12HR ml 12/27/22 Insulin -Regular Human [Novolin -R*] See Protocol SQ Q6HR@0000,0600,1200,1800 ml 01/13/23 Potassium Chloride 10 meq FT DAILY 01/24/23 Ticagrelor [Brilinta*] 90 mg FT BID 01/25/23 carvediloL [Coreg*] 6.25 mg FT BID 01/25/23 Albuterol Neb [Proventil 0.083% Neb Soln] 2.5 mg NEB [id number] PRN #60 amp 02/09/23 Ipratropium Neb [Atrovent*] 0.5 mg NEB [id number] PRN #60 amp 02/09/23 Na Bicarb Tab [Sodium Bicarb 325 MG Tab*] 650 mg PO DAILY #60 tab 02/09/23 Pantoprazole Granules [Protonix Granules*] 40 mg FT DAILYAC #30 packet 02/09/23 Sucralfate [Carafate*] 10 ml FT QID #1000 02/09/23 - Past Medical/Surgical History Diabetic: Yes -: DM I -: CKD IIIb with Proteinuria (Dr. Edmonds/ Dr. Howard) -: Diastolic CHF -: HTN -: HLD -: CAD/ PAD -: History TIA/CVA -: Appendectomy -: Left below-knee amputation -: Multiple surgeries to the right lower extremity -: Right foot all toes amputated- february 2019 Psychosocial/ Personal History: Patient lives at [facility]. - Family History Mother Medical History: Cancer - Social History Smoking Status: Unknown if ever smoked Alcohol use: Yes CD- Drugs: No Caffeine use: Yes Review of Systems 10-point ROS is otherwise unremarkable General: Weakness, Malaise Physical Examination General: In no apparent distress HEENT: Atraumatic Neck: Supple Respiratory: Clear to auscultation bilaterally, Normal air movement Cardiovascular: No edema, Regular rate/rhythm Gastrointestinal: Soft and benign, Non-distended Musculoskeletal: No clubbing, No contractures, Other (Left BKA) Integumentary: No rashes, No cyanosis Neurological: Abnormal speech Laboratory Data (last 24 hrs) 06/03/23 06/03/23 06:05 06:05 WBC 14.80 H Hgb 7.8 L Hct 26.4 L Plt Count 371 Sodium 156 H* Potassium 5.1 BUN 122 H Creatinine 3.95 H Glucose 1138 H* Total Bilirubin 0.5 AST 8 L ALT 49 Alkaline Phosphatase 318 H Imagings Data: EXAM DESCRIPTION: RAD - Chest Single View - 06/03/2023 6:48 am CLINICAL HISTORY: hyperglycemia COMPARISON: Chest Single View dated 02/24/2023; Chest Single View dated 02/06/2023; Chest Single View dated 02/03/2023; Chest Single View dated 02/01/2023 FINDINGS: Lines: Tracheostomy. Lungs: Ill-defined opacities in the right lung base. Pleural: No significant pleural effusions or pneumothorax. Cardiac: The heart size is within normal limits. Mediastinum: Within normal limits. Bones: No acute fractures. Other: None IMPRESSION: Ill-defined opacities in the right lung base could reflect pneumonia or pneumonitis, such as from aspiration. LEFT VENTRICULAR WALL MOTION: DECREASED LEFT VENTRICULAR COMPLIANCE DOPPLER/COLOR FLOW: DECREASED LEFT VENTRICULAR COMPLIANCE COMMENTS: 1. DIASTOLIC DYSFUNCTION 2. NORMAL EJECTION FRACTION 3. NO EFFUSION Conclusions/Impression: Stage II KATLYN likely due to hypovolemia CKD IIIb with nephrotic range proteinuria -No NSAIDs -Continue aggressive IVF -Continue ortega Hypernatremia/ Dehydration -Change IVF 1/2NS Hyperkalemia/ Hypokalemia -Replete as ordered NAG Acidosis -Change IVF to 1/2NS HTN with CKD/ CHF -Hold antihypertensives at this time Diastolic CHF, chronic -Daily weight DM I with Hyperglycemia & CKD -Insulin gtt -Continue IVF Severe Hypoalbuminemia -Start tube feeds as tolerated BPH with LUTS Hx urinary retention -Continue ortega -Restart tamsulosin as tolerated Acute Cystitis with Hematuria -Follow up culture -Continue Abx Hospitalist and ER notes reviewed Thank you kindly for the consultation Critical Care: Yes (>30min)
[2023-06-03] MEDS ORDERED: NACHLORIDE 0.45% 1,000 ML IV SCH ×2 (10:12→11:00)
[2023-06-03 11:17] LABS: Phosphorus 0.7 mg/dL (2.5-4.9)
[2023-06-03] MEDS ORDERED: NACHLORIDE 0.45% 1,000 ML IV ONE (11:27)
[2023-06-03] MEDS ORDERED: PIPERACIL/TAZO 3.375 GM VIAL IV ONE ×2 (11:27→18:23)
[2023-06-03] MEDS ORDERED: CALCIUM GLUC 10% INJ 4.65 MEQ in NA CHLORIDE 0.9% 100 ML IV ONE (11:43)
[2023-06-03] MEDS ORDERED: CALCIUM GLUCONATE 1 GM IVPB 1 GM/50 ML BAG IV ONE ×2 (12:00→12:37)
[2023-06-03] MEDS: POTASSIUM PHOS 15 MM in NA CHLORIDE 0.9% 250 ML IV SCH ×2 (12:30→15:30)
[2023-06-03] MEDS ORDERED: POTASSIUM PHOS 30 MM in NA CHLORIDE 0.9% 500 ML IV ONE (12:30)
[2023-06-03 14:30] LABS: Absolute Lymphocytes (CBC) 1.5 K/uL (0.7-4.9); Hematocrit 21.7 % (39.6-49.0); Lymphocytes % 14.9 % (15.3-44.8); MCV 81.3 fL (80-100); MPV 8.2 fL (7.6-11.3); Platelets 297 thou/uL (152-406); RBC Red Blood Cell Count 2.67 M/uL (4.33-5.43)
[2023-06-03 14:41] LABS: Potassium 3.7 mEq/L (3.5-5.1)
[2023-06-03 16:01] LABS: Blood Morphology Comment NOT SEEN (NOT SEEN); White Blood Cell Scan OK (OK)
[2023-06-03 16:02] LABS: Platelet Estimate ADEQ
[2023-06-03] MEDS ORDERED: NA CHLORIDE 0.9% 500 ML ONE (17:40)
[2023-06-03 18:43] LABS: Potassium 4.2 mEq/L (3.5-5.1)
[2023-06-03 22:30] LABS: Potassium 4.1 mEq/L (3.5-5.1)
[2023-06-03] MEDS ORDERED: NA CHLORIDE 0.9% 250 ML ONE (22:39)
[2023-06-03] MEDS: SCOPOLAMINE HYDROBROMIDE PATCH TD SCH (22:59)
[2023-06-03] MEDS ORDERED: D50W 25 GM/50 ML SYRINGE IV PRN (23:09)
[2023-06-03] MEDS ORDERED: GLUCAGON 1 MG/VIAL IM PRN (23:09)
[2023-06-03] MEDS: NACHLORIDE 0.45% 1,000 ML IV SCH (23:25)
[2023-06-04] MEDS: INSULIN GLARGINE 100 UNIT/ML SQ SCH ×2 (00:14→08:28)
[2023-06-04] MEDS: PIPER TAZO 3.375 GM in NA CHLORIDE 0.9% 100 ML IV SCH ×3 (01:23→16:19)
[2023-06-04 03:35] LABS: Absolute Lymphocytes (CBC) 2.6 K/uL (0.7-4.9); Lymphocytes % 16.6 % (15.3-44.8); MCV 80.1 fL (80-100); MPV 7.9 fL (7.6-11.3); Platelets 391 thou/uL (152-406); RBC Red Blood Cell Count 4.12 M/uL (4.33-5.43)
[2023-06-04 04:04] LABS: Magnesium 2.1 mg/dL (1.6-2.4); Phosphorus 2.5 mg/dL (2.5-4.9)
[2023-06-04 04:32] LABS: Potassium 4.3 mEq/L (3.5-5.1)
[2023-06-04] MEDS: INSULIN REGULAR (HUMAN) 100 UNIT/ML SQ SCH ×4 (07:30→20:35)
--- NOTE | 2023-06-04 07:53 | P.PN ---
Subjective Date of Service: 06/04/23 Primary Care Provider: Dr. Berg Chief Complaint: Hyperglycemia Subjective: No new changes, Improving Review of Systems 10-point ROS is otherwise unremarkable Physical Examination - Vital Signs Temperature: 96.8 F Blood Pressure: 102/87 Pulse: 75 Respirations: 19 Pulse Ox (%): 98 Assessment And Plan - Plan Assessment and plan DKA-improving Admit to ICU insulin drip, every hour blood sugars, every 4 hours BMPs, Trend electrolytes replace as needed Acidosis-improving Repeat ABG Change IVF to 1/2NS per nephrology CKD-Stage II KATLYN likely due to hypovolemia-improving Hyperkalemia/ Hypokalemia-improving Hypernatremia/ Dehydration-acute Nephrology consult Change IVF 1/2NS per nephrology CKD IIIb with nephrotic range proteinuria -No NSAIDs -Continue aggressive IVF -Continue ortega -Replete as ordered Acute on chronic respiratory failure-improving Ill-defined opacities in the right lung base could reflect pneumonia or pneumonitis Chronic tracheostomy O2 keep sats greater than 92% 06/04 Sputum culture positive for gram-positive cocci, gram-negative rods, on Zosyn pending culture (levaquin added) Blood cultures pending, wound cultures negative, urine cultures negative (+normal eula) EXAM DESCRIPTION: RAD - Chest Single View - 06/03/2023 6:48 am COMPARISON: Chest Single View dated 02/24/2023; Chest Single View dated 02/06/2023; Chest Single View dated 02/03/2023; Chest Single View dated 02/01/2023 FINDINGS: Lines: Tracheostomy. Lungs: Ill-defined opacities in the right lung base. Pleural: No significant pleural effusions or pneumothorax. Cardiac: The heart size is within normal limits. Mediastinum: Within normal limits. Bones: No acute fractures. Other: None IMPRESSION: Ill-defined opacities in the right lung base could reflect pneumonia or pneumonitis, such as from aspiration. IV Zosyn leukocytosis HTN with CKD/ CHF- -Hold antihypertensives at this time IRENA, daily weight LEFT VENTRICULAR WALL MOTION: DECREASED LEFT VENTRICULAR COMPLIANCE DOPPLER/COLOR FLOW: DECREASED LEFT VENTRICULAR COMPLIANCE COMMENTS: 1. DIASTOLIC DYSFUNCTION 2. NORMAL EJECTION FRACTION 3. NO EFFUSION Severe Hypoalbuminemia -Start tube feeds as tolerated Acute Cystitis with Hematuria -Follow up culture -Continue Abx BPH with LUTS Hx urinary retention Chronic indwelling Ortega catheter -Restart tamsulosin as tolerated [facility] - Code Status/Comfort Care Code Status: Full Code Critical Care: Yes Time Spent Managing PTS Care (In Minutes): 60
[2023-06-04] MEDS ORDERED: POTASSIUM PHOS IN 0.9 % NACL 15 MMOL/250 ML BAG IV ONE (08:00)
[2023-06-04] MEDS ORDERED: Levofloxacin500mg IV 500 MG/100 ML BAG IV ONE (08:00)
[2023-06-04] MEDS ORDERED: NEPRO 1,000 ML BOT FT SCH ×2 (10:33→13:00)
[2023-06-04] MEDS: NACHLORIDE 0.45% 1,000 ML IV SCH (10:46)
[2023-06-04] MEDS ORDERED: SODIUM CHLORIDE 0.9% 10ML INJ IV PRN (11:13)
[2023-06-04] MEDS ORDERED: PANTOPRAZOLE 40 MG INJ IVP ONE (11:13)
[2023-06-04] MEDS: PANTOPRAZOLE INJ 80 MG in NA CHLORIDE 0.9% 250 ML IV SCH ×2 (11:46→20:35)
[2023-06-04] MEDS ORDERED: PNEUMOCOCCAL VACCINE 0.5 ML IMVAC ONE (12:00)
[2023-06-04] MEDS ORDERED: ALBUMIN HUMAN 25% 100 ML IV ONE (15:17)
[2023-06-04] MEDS ORDERED: D5W 1,000 ML IV SCH (16:00)
[2023-06-04] MEDS: D5 0.2 NS 1,000 ML IV SCH (16:19)
[2023-06-04] MEDS ORDERED: NA CHLORIDE 0.9% 100 ML ONE (16:31)
[2023-06-04 17:33] LABS: Hematocrit 32.2 % (39.6-49.0)
[2023-06-04 17:50] LABS: Potassium 4.3 mEq/L (3.5-5.1)
--- NOTE | 2023-06-04 19:01 | P.PN ---
Subjective Date of Service: 06/04/23 Patient clinical symptoms have improved. Blood sugars are stabilized. Sodium is improving. Patient did start having some bloody stools. Patient also with some melanotic stools. We will consult gastroenterology in the morning. Monitor H&H closely. Started on a PPI drip as well. No complaint of pain. Hold tube feedings for now. Review of Systems is unable to be obtained Physical Examination - Vital Signs Temperature: 97.3 F Blood Pressure: 100/51 Pulse: 72 Respirations: 19 Pulse Ox (%): 100 - Physical Exam General: Alert, In no apparent distress Respiratory: Clear to auscultation bilaterally, Normal air movement Cardiovascular: Regular rate/rhythm, Normal S1 S2, Systolic murmur Gastrointestinal: Normal bowel sounds, Soft and benign, Non-distended, Other (PEG in place) Musculoskeletal: No clubbing Integumentary: No rashes Neurological: Abnormal gait, Abnormal strength, Abnormal cranial nerve function Assessment & Plan - Problems (Diagnosis) (1) Hypernatremia Current Visit: Yes Status: Acute (2) LGI bleed Current Visit: Yes Status: Acute (3) Melanotic stools Current Visit: Yes Status: Acute (4) Acute renal failure Current Visit: No Status: Acute Qualifiers: Acute renal failure type: unspecified Qualified Code(s): N17.9 - Acute kidney failure, unspecified (5) Hyperglycemia Current Visit: No Status: Acute (6) Congestive heart failure Current Visit: No Status: Chronic Qualifiers: Heart failure type: diastolic Heart failure chronicity: chronic Qualified Code(s): I50.32 - Chronic diastolic (congestive) heart failure (7) Coronary artery disease Current Visit: No Status: Chronic Qualifiers: Coronary Disease-Associated Artery/Lesion type: [place] artery [place] vs. transplanted heart: [place] heart Associated angina: without angina Qualified Code(s): I25.10 - Atherosclerotic heart disease of [place] coronary artery without angina pectoris (8) Hypertension Current Visit: No Status: Chronic Qualifiers: Hypertension type: primary hypertension Qualified Code(s): I10 - Essential (primary) hypertension (9) Status post tracheostomy Current Visit: No Status: Chronic (10) Type 1 diabetes Current Visit: No Status: Chronic Qualifiers: Diabetes mellitus complication status: with hyperglycemia Qualified Code(s): E10.65 - Type 1 diabetes mellitus with hyperglycemia (11) CVA (cerebral vascular accident) Current Visit: No Status: Acute Qualifiers: Precerebral and cerebral artery: middle cerebral artery Laterality of affected vessel: unspecified (12) Chronic respiratory failure with hypoxia Current Visit: No Status: Chronic - Plan Plan: 1. Continue with IV hydration-decrease the amount of saline and the IV fluids- and PPI drip; Free water through the PEG tube 2. Continue with IV antibiotics; Patient on Levaquin and Zosyn. We will continue with Zosyn 3. Continue with pain control 4. NPO.; Patient with GI bleed. Holding off on tube feeds except for free water to help with the hypernatremia 5. GI consultation in the morning for GI bleeding; appreciate nephrology input a s well 6. Antiplatelet therapy and statin therapy 7. O2 per protocol 8. Antidepressant will be resumed 9. Aspiration precautions 10. GI and DVT prophylaxis Discharge Plan: Home Plan to discharge in: Greater than 2 days - Advance Directives Does patient have a Living Will: No Does patient have a Durable POA for Healthcare: No - Code Status/Comfort Care Code Status: Full Code Critical Care: No Time Spent Managing PTS Care (In Minutes): 35
[2023-06-04 23:15] LABS: Absolute Lymphocytes (CBC) 1.7 K/uL (0.7-4.9); Hematocrit 30.2 % (39.6-49.0); MCV 79.9 fL (80-100); Platelets 362 thou/uL (152-406); RBC Red Blood Cell Count 3.78 M/uL (4.33-5.43)
[2023-06-05] MEDS: PIPER TAZO 3.375 GM in NA CHLORIDE 0.9% 100 ML IV SCH ×3 (01:18→16:49)
[2023-06-05] MEDS: D5 0.2 NS 1,000 ML IV SCH (05:25)
[2023-06-05 06:14] LABS: Protime INR 1.13
[2023-06-05 06:17] LABS: Absolute Lymphocytes (CBC) 1.6 K/uL (0.7-4.9); Lymphocytes % 9.9 % (15.3-44.8); MCV 80.4 fL (80-100); Platelets 369 thou/uL (152-406); RBC Red Blood Cell Count 3.73 M/uL (4.33-5.43)
[2023-06-05 07:05] LABS: Potassium 4.2 mEq/L (3.5-5.1)
[2023-06-05] MEDS ORDERED: Levofloxacin 250mg IV 250 MG/50 ML BAG IV SCH (08:00)
--- NOTE | 2023-06-05 08:15 | P.PN ---
Subjective Date of Service: 06/05/23 Chief Complaint: Hyperglycemia Subjective: No new changes Physical Examination - Vital Signs Temperature: 97.0 F Blood Pressure: 138/71 Pulse: 84 Respirations: 21 Pulse Ox (%): 98 - Physical Exam General: In no apparent distress HEENT: Atraumatic Neck: Supple Respiratory: Normal air movement Cardiovascular: Regular rate/rhythm, Normal S1 S2 Gastrointestinal: Soft and benign Musculoskeletal: No swelling Assessment And Plan - Plan - Problems (Diagnosis) (1) Hypernatremia Current Visit: Yes Status: Acute (2) LGI bleed Current Visit: Yes Status: Acute (3) Melanotic stools Current Visit: Yes Status: Acute (4) Acute renal failure Current Visit: No Status: Acute Qualifiers: Acute renal failure type: unspecified Qualified Code(s): N17.9 - Acute kidney failure, unspecified (5) Hyperglycemia Current Visit: No Status: Acute (6) Congestive heart failure Current Visit: No Status: Chronic Qualifiers: Heart failure type: diastolic Heart failure chronicity: chronic Qualified Code(s): I50.32 - Chronic diastolic (congestive) heart failure (7) Coronary artery disease Current Visit: No Status: Chronic Qualifiers: Coronary Disease-Associated Artery/Lesion type: [place] artery [place] vs. transplanted heart: [place] heart Associated angina: without angina Qualified Code(s): I25.10 - Atherosclerotic heart disease of [place] coronary artery without angina pectoris (8) Hypertension Current Visit: No Status: Chronic Qualifiers: Hypertension type: primary hypertension Qualified Code(s): I10 - Essential (primary) hypertension (9) Status post tracheostomy Current Visit: No Status: Chronic (10) Type 1 diabetes Current Visit: No Status: Chronic Qualifiers: Diabetes mellitus complication status: with hyperglycemia Qualified Code(s): E10.65 - Type 1 diabetes mellitus with hyperglycemia (11) CVA (cerebral vascular accident) Current Visit: No Status: Acute Qualifiers: Precerebral and cerebral artery: middle cerebral artery Laterality of affected vessel: unspecified (12) Chronic respiratory failure with hypoxia Current Visit: No Status: Chronic Plan: Patient continues to have significant hypernatremia with a sodium of 151. He also has hyperchloremia and KATLYN with a creatinine of 3. Nephrology is following for management of electrolyte and kidney function issue. We will monitor serum glucose and continue free water replacement as per nephrology recommendation. GI bleed episode noted, hemoglobin trend being followed. GI consulted for management recommendation. We will continue PPI therapy. We will continue other home medication for chronic health issues. Discharge Plan: Home Plan to discharge in: Greater than 2 days
[2023-06-05] MEDS: INSULIN REGULAR (HUMAN) 100 UNIT/ML SQ SCH ×4 (09:02→20:54)
[2023-06-05] MEDS: PANTOPRAZOLE INJ 80 MG in NA CHLORIDE 0.9% 250 ML IV SCH ×2 (09:03→20:54)
[2023-06-05] MEDS: INSULIN GLARGINE 100 UNIT/ML SQ SCH (09:04)
--- NOTE | 2023-06-05 10:10 | P.PN ---
Date of Service: 06/05/23 Vital Signs Temp Pulse Resp BP Pulse Ox 97.0 F 84 21 H 138/71 98 06/05/23 08:16 06/05/23 08:16 06/05/23 08:16 06/05/23 08:16 06/05/23 08:16 Medications Glucagon (Glucagon 1 Mg/Vial) 1 mg IM 1X PRN; Protocol PRN Reason: HYPOGLYCEMIA Piperacillin Sod/Tazobactam (Sod 3.375 gm/ Sodium Chloride) 100 mls @ 25 mls/hr IV Q8HR [facility]; Protocol Last Admin: 06/05/23 09:03 Dose: 100 mls Dextrose (Dextrose 10% Water Iv Soln.) 125 mls @ 0 mls/hr IV PRN PRN; Protocol PRN Reason: HYPOGLYCEMIA Pantoprazole Sodium 80 mg/ (Sodium Chloride) 250 mls @ 25 mls/hr IV Q10H [facility]; Protocol Last Admin: 06/05/23 09:03 Dose: 250 mls Dextrose/Water (Dextrose In Water (1-Liter)) 1,000 mls @ 100 mls/hr IV .Q10H [facility] Insulin Glargine (Insulin Glargine 100 Unit/Ml) 10 unit SQ DAILY [facility] Last Admin: 06/05/23 09:04 Dose: 10 unit Insulin Human Regular (Insulin Regular (Human) 100 Unit/Ml) 0 unit SQ ACHS [facility]; Protocol Last Admin: 06/05/23 09:02 Dose: 100 unit Ondansetron HCl (Ondansetron 4 Mg/2 Ml Vial) 4 mg IV Q6H PRN PRN Reason: NAUSEA / VOMITING Scopolamine HBr (Scopolamine Hydrobromide Patch) 1 pat TD Q3D@0900 [facility] Last Admin: 06/03/23 22:59 Dose: 1 pat Sodium Chloride (Sodium Chloride 0.9% 10ml Inj) 10 ml IV UD PRN PRN Reason: Diluant Microbiology Results 06/03/23 06:06 Clean Catch Urine [place] Count - Preliminary >100,000 CFU/ML. 06/03/23 06:06 Clean Catch Urine - Preliminary Assessment/ Plan: Neprology Limited IH/ ROS due to mental status No acute events overnight Vitals, medications, blood work and imaging reviewed in the chart General: In no apparent distress HEENT: Atraumatic Neck: Supple Respiratory: Clear to auscultation bilaterally, Normal air movement Cardiovascular: No edema, Regular rate/rhythm Gastrointestinal: Soft and benign, Non-distended Musculoskeletal: No clubbing, No contractures, Other (Left BKA) Integumentary: No rashes, No cyanosis Neurological: Abnormal speech Laboratory Data (last 24 hrs) 06/03/23 06/03/23 06:05 06:05 WBC 14.80 H Hgb 7.8 L Hct 26.4 L Plt Count 371 Sodium 156 H* Potassium 5.1 BUN 122 H Creatinine 3.95 H Glucose 1138 H* Total Bilirubin 0.5 AST 8 L ALT 49 Alkaline Phosphatase 318 H Imagings Data: EXAM DESCRIPTION: RAD - Chest Single View - 06/03/2023 6:48 am CLINICAL HISTORY: hyperglycemia COMPARISON: Chest Single View dated 02/24/2023; Chest Single View dated 02/06/2023; Chest Single View dated 02/03/2023; Chest Single View dated 02/01/2023 FINDINGS: Lines: Tracheostomy. Lungs: Ill-defined opacities in the right lung base. Pleural: No significant pleural effusions or pneumothorax. Cardiac: The heart size is within normal limits. Mediastinum: Within normal limits. Bones: No acute fractures. Other: None IMPRESSION: Ill-defined opacities in the right lung base could reflect pneumonia or pneumonitis, such as from aspiration. LEFT VENTRICULAR WALL MOTION: DECREASED LEFT VENTRICULAR COMPLIANCE DOPPLER/COLOR FLOW: DECREASED LEFT VENTRICULAR COMPLIANCE COMMENTS: 1. DIASTOLIC DYSFUNCTION 2. NORMAL EJECTION FRACTION 3. NO EFFUSION Conclusions/Impression: Stage II KATLYN likely due to hypovolemia CKD IIIb with nephrotic range proteinuria -No NSAIDs -Continue IVF -Continue ortega Hypernatremia/ Dehydration -Change IVF D5W Hyperkalemia/ Hypokalemia -Replete prpn NAG Acidosis, resolved HTN with CKD/ CHF -Hold antihypertensives at this time Diastolic CHF, chronic -Daily weight DM I with Hyperglycemia & CKD -Continue Lantus -RISS Severe Hypoalbuminemia -Start tube feeds as tolerated -GI evaluation pending for GI bleed BPH with LUTS Hx urinary retention -Continue ortega Acute Cystitis with Hematuria -Follow up culture -Continue Abx Hospitalist note reviewed
[2023-06-05] MEDS: D5W 1,000 ML IV SCH ×2 (10:48→20:54)
[2023-06-05 11:35] LABS: Absolute Lymphocytes (CBC) 1.7 K/uL (0.7-4.9); Hematocrit 30.7 % (39.6-49.0); Lymphocytes % 10.5 % (15.3-44.8); MCV 80.4 fL (80-100); Platelets 377 thou/uL (152-406); RBC Red Blood Cell Count 3.82 M/uL (4.33-5.43)
[2023-06-05] MEDS ORDERED: HEPARIN 500 UNIT/5 ML SYR IV ONE (13:00)
--- NOTE | 2023-06-05 18:16 | RAD REPORT ---
EXAM DESCRIPTION: NM - GI Blood Loss Imaging - 06/05/2023 3:43 pm CLINICAL HISTORY: GI bleed COMPARISON: None. TECHNIQUE: The patient was administered approximately 23.6 mCi Tc 99m labeled RBCs intravenously. An terior planar flow imaging was performed along the abdomen and pelvis. FINDINGS: Sequential anterior planar flow images demonstrate normal flow pattern along the aorta and its iliac bifurcations. Normal tracer uptake in the liver and spleen, as well as the myocardium. No evidence of tracer extravasation throughout the gastrointestinal tract to suggest active GI bleeding. IMPRESSION: Negative GI bleed scintigraphic exam.
[2023-06-05 18:24] LABS: Absolute Lymphocytes (CBC) 1.8 K/uL (0.7-4.9); Lymphocytes % 11.3 % (15.3-44.8); Platelets 382 thou/uL (152-406); RBC Red Blood Cell Count 3.63 M/uL (4.33-5.43)
[2023-06-05 18:28] LABS: Potassium 3.9 mEq/L (3.5-5.1)
[2023-06-06 00:23] LABS: Absolute Lymphocytes (CBC) 1.9 K/uL (0.7-4.9); Hematocrit 28.9 % (39.6-49.0); Lymphocytes % 11.9 % (15.3-44.8); MCV 80.7 fL (80-100); Platelets 425 thou/uL (152-406); RBC Red Blood Cell Count 3.58 M/uL (4.33-5.43)
[2023-06-06] MEDS: PIPER TAZO 3.375 GM in NA CHLORIDE 0.9% 100 ML IV SCH ×3 (01:45→16:46)
[2023-06-06 05:59] LABS: Absolute Lymphocytes (CBC) 1.9 K/uL (0.7-4.9); Hematocrit 28.6 % (39.6-49.0); MCV 80.5 fL (80-100); MPV 8.1 fL (7.6-11.3); Platelets 410 thou/uL (152-406); RBC Red Blood Cell Count 3.56 M/uL (4.33-5.43)
--- NOTE | 2023-06-06 07:39 | P.PN ---
Subjective Date of Service: 06/06/23 Chief Complaint: Hyperglycemia Subjective: No new changes, Improving Physical Examination - Vital Signs Temperature: 96.9 F Blood Pressure: 155/59 Pulse: 88 Respirations: 22 Pulse Ox (%): 98 - Physical Exam General: Alert HEENT: Atraumatic Neck: Supple Respiratory: Normal air movement Cardiovascular: Regular rate/rhythm, Normal S1 S2 Gastrointestinal: Soft and benign Musculoskeletal: No swelling Neurological: Normal speech - Studies Microbiology Data (last 24 hrs): 06/03/23 06:06 Clean Catch Urine [place] Count - Final >100,000 CFU/ML. 06/03/23 06:06 Clean Catch Urine - Final Pseudomonas Aeruginosa Citrobacter Freundii Complex Assessment And Plan - Plan - Problems (Diagnosis) (1) Hypernatremia Current Visit: Yes Status: Acute (2) LGI bleed Current Visit: Yes Status: Acute (3) Melanotic stools Current Visit: Yes Status: Acute (4) Acute renal failure Current Visit: No Status: Acute Qualifiers: Acute renal failure type: unspecified Qualified Code(s): N17.9 - Acute kidney failure, unspecified (5) Hyperglycemia Current Visit: No Status: Acute (6) Congestive heart failure Current Visit: No Status: Chronic Qualifiers: Heart failure type: diastolic Heart failure chronicity: chronic Qualified Code(s): I50.32 - Chronic diastolic (congestive) heart failure (7) Coronary artery disease Current Visit: No Status: Chronic Qualifiers: Coronary Disease-Associated Artery/Lesion type: [place] artery [place] vs. transplanted heart: [place] heart Associated angina: without angina Qualified Code(s): I25.10 - Atherosclerotic heart disease of [place] coronary artery without angina pectoris (8) Hypertension Current Visit: No Status: Chronic Qualifiers: Hypertension type: primary hypertension Qualified Code(s): I10 - Essential (primary) hypertension (9) Status post tracheostomy Current Visit: No Status: Chronic (10) Type 1 diabetes Current Visit: No Status: Chronic Qualifiers: Diabetes mellitus complication status: with hyperglycemia Qualified Code(s): E10.65 - Type 1 diabetes mellitus with hyperglycemia (11) CVA (cerebral vascular accident) Current Visit: No Status: Acute Qualifiers: Precerebral and cerebral artery: middle cerebral artery Laterality of affected vessel: unspecified (12) Chronic respiratory failure with hypoxia Current Visit: No Status: Chronic Plan: Patient serum sodium is now improved today. value is 147 this morning. We will continue free water administration as per nephrology recommendation. Serum creatinine still elevated at 2.9. Nephrology following for management recommendation. Plans for endoscopy as per gastroenterology in pipeline for later today. We will continue PPI therapy. We will continue other home medication for chronic health issues. Discharge Plan: Home Plan to discharge in: Greater than 2 days
[2023-06-06 07:54] LABS: Albumin 1.6 g/dL (3.4-5.0); Bilirubin Total 0.3 mg/dL (0.2-1.0); Potassium 3.8 mEq/L (3.5-5.1); Protein, Total 5.8 g/dL (6.4-8.2)
[2023-06-06] MEDS: D5W 1,000 ML IV SCH ×2 (08:20→16:46)
[2023-06-06] MEDS: PANTOPRAZOLE INJ 80 MG in NA CHLORIDE 0.9% 250 ML IV SCH ×2 (08:21→14:00)
[2023-06-06] MEDS: INSULIN REGULAR (HUMAN) 100 UNIT/ML SQ SCH ×4 (08:21→21:42)
[2023-06-06] MEDS: INSULIN GLARGINE 100 UNIT/ML SQ SCH (08:22)
[2023-06-06] MEDS: NA CHLORIDE 0.9% 1,000 ML ONE (12:40)
[2023-06-06] MEDS ORDERED: propofoL 200 MG/20 ML VIAL IV ONE (13:00)
[2023-06-06] MEDS ORDERED: LIDOCAINE 1% MPF 5 ML VIAL ONE (13:00)
[2023-06-06] MEDS ORDERED: EPINEPHRINE/PF 1 MG/ML AMP ONE (13:05)
[2023-06-06] MEDS ORDERED: MAGNESIUM CITRATE 300 ML BOT PO ONE (13:55)
[2023-06-06] MEDS ORDERED: GOLYTELY 4000 ML PO ONE (14:00)
[2023-06-06] MEDS: METOCLOPRAMIDE 10 MG/2mL INJ IV SCH ×2 (16:47→20:19)
[2023-06-06] MEDS ORDERED: Magnesium Sulfate 2gm IVPB 2 G/50 ML BAG IV ONE (17:20)
[2023-06-06] MEDS ORDERED: PANTOPRAZOLE INJ 80 MG in NA CHLORIDE 0.9% 250 ML IV SCH (17:30)
--- NOTE | 2023-06-06 19:13 | P.PN ---
Date of Service: 06/06/23 Vital Signs Temp Pulse Resp BP Pulse Ox 98.7 F 88 20 113/67 99 06/06/23 16:00 06/06/23 18:00 06/06/23 18:00 06/06/23 18:00 06/06/23 18:00 Medications Glucagon (Glucagon 1 Mg/Vial) 1 mg IM 1X PRN; Protocol PRN Reason: HYPOGLYCEMIA Piperacillin Sod/Tazobactam (Sod 3.375 gm/ Sodium Chloride) 100 mls @ 25 mls/hr IV Q8HR [facility]; Protocol Last Admin: 06/06/23 16:46 Dose: 100 mls Dextrose (Dextrose 10% Water Iv Soln.) 125 mls @ 0 mls/hr IV PRN PRN; Protocol PRN Reason: HYPOGLYCEMIA Dextrose/Water (Dextrose In Water (1-Liter)) 1,000 mls @ 100 mls/hr IV .Q10H [facility] Last Admin: 06/06/23 16:46 Dose: 1,000 mls Pantoprazole Sodium 80 mg/ (Sodium Chloride) 250 mls @ 25 mls/hr IV Q10H [facility]; Protocol Insulin Glargine (Insulin Glargine 100 Unit/Ml) 10 unit SQ DAILY [facility] Last Admin: 06/06/23 08:22 Dose: 10 unit Insulin Human Regular (Insulin Regular (Human) 100 Unit/Ml) 0 unit SQ ACHS [facility]; Protocol Last Admin: 06/06/23 16:30 Dose: Not Given Metoclopramide HCl (Metoclopramide 10 Mg/2ml Inj) 10 mg IV Q6H [facility] Stop: 06/07/23 02:01 Last Admin: 06/06/23 16:47 Dose: 10 mg Ondansetron HCl (Ondansetron 4 Mg/2 Ml Vial) 4 mg IV Q6H PRN PRN Reason: NAUSEA / VOMITING Scopolamine HBr (Scopolamine Hydrobromide Patch) 1 pat TD Q3D@0900 [facility] Last Admin: 06/03/23 22:59 Dose: 1 pat Sodium Chloride (Sodium Chloride 0.9% 10ml Inj) 10 ml IV UD PRN PRN Reason: Diluant Microbiology Results 06/03/23 06:06 Clean Catch Urine [place] Count - Final >100,000 CFU/ML. 06/03/23 06:06 Clean Catch Urine - Final Pseudomonas Aeruginosa Citrobacter Freundii Complex Assessment/ Plan: Neprology Limited IH/ ROS due to mental status No acute events overnight Vitals, medications, blood work and imaging reviewed in the chart General: In no apparent distress HEENT: Atraumatic Neck: Supple Respiratory: Clear to auscultation bilaterally, Normal air movement Cardiovascular: No edema, Regular rate/rhythm Gastrointestinal: Soft and benign, Non-distended Musculoskeletal: No clubbing, No contractures, Other (Left BKA) Integumentary: No rashes, No cyanosis Neurological: Abnormal speech Laboratory Data (last 24 hrs) 06/03/23 06/03/23 06:05 06:05 WBC 14.80 H Hgb 7.8 L Hct 26.4 L Plt Count 371 Sodium 156 H* Potassium 5.1 BUN 122 H Creatinine 3.95 H Glucose 1138 H* Total Bilirubin 0.5 AST 8 L ALT 49 Alkaline Phosphatase 318 H Imagings Data: EXAM DESCRIPTION: RAD - Chest Single View - 06/03/2023 6:48 am CLINICAL HISTORY: hyperglycemia COMPARISON: Chest Single View dated 02/24/2023; Chest Single View dated 02/06/2023; Chest Single View dated 02/03/2023; Chest Single View dated 02/01/2023 FINDINGS: Lines: Tracheostomy. Lungs: Ill-defined opacities in the right lung base. Pleural: No significant pleural effusions or pneumothorax. Cardiac: The heart size is within normal limits. Mediastinum: Within normal limits. Bones: No acute fractures. Other: None IMPRESSION: Ill-defined opacities in the right lung base could reflect pneumonia or pneumonitis, such as from aspiration. LEFT VENTRICULAR WALL MOTION: DECREASED LEFT VENTRICULAR COMPLIANCE DOPPLER/COLOR FLOW: DECREASED LEFT VENTRICULAR COMPLIANCE COMMENTS: 1. DIASTOLIC DYSFUNCTION 2. NORMAL EJECTION FRACTION 3. NO EFFUSION Conclusions/Impression: Stage II KATLYN likely due to hypovolemia CKD IIIb with nephrotic range proteinuria -No NSAIDs -Continue IVF -Continue ortega Hypernatremia/ Dehydration -Continue IVF D5W Hyperkalemia/ Hypokalemia -Replete prn NAG Acidosis, resolved HTN with CKD/ CHF -Hold antihypertensives at this time Diastolic CHF, chronic -Daily weight DM I with Hyperglycemia & CKD -Continue Lantus -RISS Severe Hypoalbuminemia -Start tube feeds as tolerated -GI evaluation pending for GI bleed BPH with LUTS Hx urinary retention -Continue ortega Acute Cystitis with Hematuria -Follow up culture -Continue Abx Hospitalist note reviewed
[2023-06-06] MEDS: SCOPOLAMINE HYDROBROMIDE PATCH TD SCH (23:30)
[2023-06-07] MEDS: PIPER TAZO 3.375 GM in NA CHLORIDE 0.9% 100 ML IV SCH ×2 (00:54→09:16)
[2023-06-07] MEDS: METOCLOPRAMIDE 10 MG/2mL INJ IV SCH (02:02)
[2023-06-07] MEDS: D5W 1,000 ML IV SCH ×3 (03:37→21:43)
[2023-06-07 05:40] LABS: Albumin 1.8 g/dL (3.4-5.0); Bilirubin Total 0.3 mg/dL (0.2-1.0); Potassium 3.9 mEq/L (3.5-5.1); Protein, Total 6.5 g/dL (6.4-8.2)
[2023-06-07 05:44] LABS: Magnesium 3.6 mg/dL (1.6-2.4); Phosphorus 2.8 mg/dL (2.5-4.9)
[2023-06-07] MEDS ORDERED: KCL 20 MEQ/100 mL IVPB 20 MEQ/100 ML BAG IV ONE (08:00)
--- NOTE | 2023-06-07 08:19 | P.PN ---
Subjective Date of Service: 06/07/23 Chief Complaint: Hyperglycemia Subjective: No new changes, Improving Physical Examination - Vital Signs Temperature: 99.1 F Blood Pressure: 148/56 Pulse: 87 Respirations: 28 Pulse Ox (%): 97 - Physical Exam General: Alert HEENT: Atraumatic Neck: Supple Respiratory: Normal air movement Cardiovascular: Regular rate/rhythm, Normal S1 S2 Gastrointestinal: Soft and benign Musculoskeletal: No swelling Neurological: Normal speech - Studies Microbiology Data (last 24 hrs): 06/03/23 06:06 Clean Catch Urine [place] Count - Final >100,000 CFU/ML. 06/03/23 06:06 Clean Catch Urine - Final Pseudomonas Aeruginosa Citrobacter Freundii Complex Assessment And Plan - Plan - Problems (Diagnosis) (1) Hypernatremia Current Visit: Yes Status: Acute (2) LGI bleed Current Visit: Yes Status: Acute (3) Melanotic stools Current Visit: Yes Status: Acute (4) Acute renal failure Current Visit: No Status: Acute Qualifiers: Acute renal failure type: unspecified Qualified Code(s): N17.9 - Acute kidney failure, unspecified (5) Hyperglycemia Current Visit: No Status: Acute (6) Congestive heart failure Current Visit: No Status: Chronic Qualifiers: Heart failure type: diastolic Heart failure chronicity: chronic Qualified Code(s): I50.32 - Chronic diastolic (congestive) heart failure (7) Coronary artery disease Current Visit: No Status: Chronic Qualifiers: Coronary Disease-Associated Artery/Lesion type: [place] artery [place] vs. transplanted heart: [place] heart Associated angina: without angina Qualified Code(s): I25.10 - Atherosclerotic heart disease of [place] coronary artery without angina pectoris (8) Hypertension Current Visit: No Status: Chronic Qualifiers: Hypertension type: primary hypertension Qualified Code(s): I10 - Essential (primary) hypertension (9) Status post tracheostomy Current Visit: No Status: Chronic (10) Type 1 diabetes Current Visit: No Status: Chronic Qualifiers: Diabetes mellitus complication status: with hyperglycemia Qualified Code(s): E10.65 - Type 1 diabetes mellitus with hyperglycemia (11) CVA (cerebral vascular accident) Current Visit: No Status: Acute Qualifiers: Precerebral and cerebral artery: middle cerebral artery Laterality of affected vessel: unspecified (12) Chronic respiratory failure with hypoxia Current Visit: No Status: Chronic Plan: Patient serum sodium is now improved today. value is 143 this morning. We will continue free water administration as per nephrology recommendation. Serum creatinine still elevated at 2.5. Nephrology following for management recommendation. he had egd and had no ulcers. Planning for colonoscopy today. We will continue PPI therapy. We will continue other home medication for chronic health issues. he had sputum and urine cultures growing multidrug resistant Citrobacter and Pseudomonas sp organism. ID consult placed for antibiotic recommendations. Discharge Plan: Home Plan to discharge in: Greater than 2 days
[2023-06-07] MEDS: INSULIN REGULAR (HUMAN) 100 UNIT/ML SQ SCH ×4 (09:16→20:50)
[2023-06-07] MEDS: INSULIN GLARGINE 100 UNIT/ML SQ SCH (09:17)
--- NOTE | 2023-06-07 09:34 | P.CNS ---
Date of Consult: 06/07/23 Reason for Consult: pseudomonas in urine and sputum cultures Chief Complaint: Hyperglycemia History of Present Illness: Patient is a 57 yo male with a PMH of CVA, chronic hypoxic respiratory failure s/p chronic tracheostomy, PEG tube dependent, recurrent aspiration pneumonia, hypothyroidism, diabetes mellitus type I, COPD, hyperlipidemia, chronic ortega, CKD stage IV who presented to the ED from half-way with complaints of hyperglycemia. Patient was admitted to ICU for insulin drip. He was also found to have urinary tract infection with pseudomonas and citrobacter. Infectious disease was consulted. Patient is off unit for EGD and colonoscopy due to hematochezia . Allergies Sulfa (Sulfonamide Antibiotics) Allergy (Verified 05/13/19 16:25) Itching/Hives/Rash Home medications list reviewed: Yes Home Medications: Acetaminophen 2 tab FT Q4H PRN 10/22/22 Amlodipine [Norvasc*] 1 tab FT DAILY 10/22/22 Atorvastatin Calcium [Lipitor*] 1 tab FT BEDTIME 10/22/22 Budesonide [Pulmicort*] 2 ml IH Q12H 10/22/22 Ferrous Sulfate 7.5 ml FT Q12H 10/22/22 Lactulose [Enulose] 30 ml FT Q6H PRN 10/22/22 Levothyroxine Sodium 1 tab FT DAILY 10/22/22 Omeprazole 20 mg FT DAILY 10/22/22 Tamsulosin HCl [Flomax] 1 cap FT BEDTIME 10/22/22 Aspirin [Aspirin EC 81 MG] 81 mg FT DAILY 12/16/22 Escitalopram Oxalate [Lexapro] 1 tab FT DAILY 12/16/22 Ipratropium/Albuterol Sulfate [Iprat-Albut 0.5-3(2.5) mg/3 ml] 3 ml IH Q6HP PRN 12/16/22 Insulin -Regular Human [Novolin -R*] See Protocol SQ Q6HR@0000,0600,1200,1800 ml 01/13/23 Potassium Chloride 10 meq FT DAILY 01/24/23 carvediloL [Coreg*] 25 mg FT BID 01/25/23 Albuterol Neb [Proventil 0.083% Neb Soln] 2.5 mg NEB [id number] PRN #60 amp 02/09/23 Na Bicarb Tab [Sodium Bicarb 325 MG Tab*] 650 mg PO DAILY #60 tab 02/09/23 Sucralfate [Carafate*] 10 ml FT QID #1000 02/09/23 Acetylcyst 20% Resp [Mucomyst 20% (FOR RESPIRATORY)*] 10 % IH Q12HR 06/04/23 Azithromycin Tab [Zithromax*] 250 mg FT DAILY 06/04/23 Cholestyramine/Aspartame [Cholestyramine Light Packet] 4 gm FT BID 06/04/23 Insulin Glargine,Hum.rec.anlog [Semglee] 20 unit SQ Q12HR 06/04/23 Insulin Lispro-Aabc [Lyumjev Kwikpen U-100] See Rx Instructions .ROUTE .COMPLEX 06/04/23 Ipratropium [place] 0.02 % IH Q12HR 06/04/23 Melatonin [Melatonin*] 3 mg FT BEDTIME 06/04/23 Nepro Shake [Nepro*] 237 ml FT QID 06/04/23 cloNIDine HCL [Clonidine HCl] 0.1 mg FT Q8HP PRN 06/04/23 levETIRAcetam [Levetiracetam] 500 mg FT BIDP PRN 06/04/23 - Past Medical/Surgical History Diabetic: Yes -: DM I -: CKD stage 4 with Proteinuria (Dr. Edmonds/ Dr. Howard) -: Diastolic CHF -: HTN -: HLD -: CAD/ PAD -: History TIA/CVA -: Anemia -: BPH -: COPD -: Hypothyroidism -: NSTEMI -: Appendectomy -: Left below-knee amputation -: Multiple surgeries to the right lower extremity -: Right foot all toes amputated- february 2019 -: Trach -: PEG Psychosocial/ Personal History: Patient lives at [facility]. - Family History Mother History Unknown: Yes Medical History: Cancer - Social History Smoking Status: Unknown if ever smoked Alcohol use: No CD- Drugs: No Caffeine use: Yes Place of Residence: [facility] Physical Examination Temp Pulse Resp BP Pulse Ox 99.1 F 87 28 H 148/56 H 97 06/07/23 08:18 06/07/23 08:18 06/07/23 08:18 06/07/23 08:18 06/07/23 08:18 Laboratory Data - Reviewed Microbiology Data - Reviewed Imagings Data: - Reviewed Conclusions/Impression: Problem List Catheter-Associated Urinary Tract Infection (POA) KATLYN on CKD Diabetes Mellitus type I with hyperglycemia Hypertension Hypothyroidism Catheter-Associated Urinary Tract Infection (POA) - Chronic ortega catheter - History of MDRO infections - On Zosyn (started 06/03) - Urine culture 06/03: Pseudomonas aeruginosa and Citrobacter freundii Chronic respiratory failure with hypoxia Trach dependent Recurrent Aspiration pneumonia - Chest XR 06/03: " Ill-defined opacities in the right lung base could reflect pneumonia or pneumonitis, such as from aspiration." - Sputum culture 06/03: Pseudomonas aeruginosa KATLYN on CKD - Nephrology following Hematochezia - GI following - Scheduled for EGD and colonoscopy today Recommendations - Urine and sputum culture sensitivies with MDR pseudomonas and citrobacter: - Starting patient on Vabomere IV. Continue for at least 7 days. - Discontinue Zosyn. - Monitor WBC and fever trends - Strict blood glucose control - Aspiration precautions - Renally dose medications Case discussed with Landen Merrill who is in agreement with plan of care.
[2023-06-07] MEDS ORDERED: NA CHLORIDE 0.9% 500 ML ONE (10:30)
[2023-06-07] MEDS ORDERED: LIDOCAINE 1% MPF 5 ML VIAL ONE (10:42)
[2023-06-07] MEDS ORDERED: propofoL 200 MG/20 ML VIAL IV ONE ×2 (10:42)
[2023-06-07] MEDS: PANTOPRAZOLE INJ 80 MG in NA CHLORIDE 0.9% 250 ML IV SCH ×2 (11:55→22:24)
[2023-06-07] MEDS: VABORBACTAM IV SCH ×2 (11:56→20:49)
[2023-06-07] MEDS: NA CHLORIDE 0.9% IV SCH ×2 (11:56→20:49)
[2023-06-07] MEDS: MEROPENEM IV SCH ×2 (11:56→20:49)
--- NOTE | 2023-06-07 12:07 | CON ---
Date of Consultation: 06/05/2023 Reason For Consultation: Hematochezia. History Of Present Illness: The patient is a 57-year-old white male with history of hypertension, di abetes, hyperlipidemia, stroke, status post tracheostomy, PEG tube, chronic respiratory failure, recu rrent aspiration pneumonias, hypothyroidism, presented to the hospital in DKA. While in hospital ICU for DKA, he was noted to have hematochezia that happened a few times and seems to be more stable now . GI Service was called. CT scan was done today which was negative. The patient appears hemodynami maria c stable. Past Medical History: Significant for diabetes type 1, hypertension, hyperlipidemia, status post str roro and transient ischemic attack, peripheral vascular disease, coronary artery disease, congestive h eart failure, chronic kidney disease, appendectomy, left [id number] amputation, multiple surgerie s on the right lower extremity, right foot, all toes amputated in February 2019. Social History: He lives in [facility]. Family History: Mother of cancer. Social History: No tobacco, but he does drink alcohol and caffeine. Review of Systems: The patient had DKA on admission with hematochezia. Denies any hematemesis, coffee-ground emesis, ab dominal pain, nausea, vomiting, diarrhea, constipation, muscle aches, joint aches, backaches. No jc st pains, seizure, or syncope. Physical Examination: Vital Signs: He is 5 feet 8 inches, 131 pounds. BMI of approximately 20 kg/m2. He has temperature of 97.3 degrees Fahrenheit, pulse 84, respiration 19, blood pressure 125/61, O2 saturation 98%. General: He is a well-nourished, well-developed male, lying in bed, in no acute distress, currently says he feels okay. HEENT: Normocephalic, atraumatic. Anicteric. Pupils equal, round, and reactive to light. Orophary nx is clear. Neck: Supple. No masses. Respirations: Clear to auscultation bilaterally. Cardiac: Regular rate with maybe some decreased breath sounds in the bases. Abdomen: Positive bowel sounds. Soft, nontender, nondistended. No hepatosplenomegaly. Extremities: No clubbing, cyanosis, or edema. 2+ pulses. Neuro: Alert and oriented x3. Grossly nonfocal. 5/5 motor sensation to light touch. Laboratory Data: The patient has white count of 16.5, hemoglobin of 9.9, hematocrit of 30.7, MCV of 80, platelet count of 377, polys of 80%, lymphocytes 11%, monocytes 5%, eosinophils 4%. PT of 12.4, INR of 1.13. Sodium 151, potassium 4.2, chloride 123, bicarb 22, BUN 85, creatinine of 2.94, glucose of 247, magnesium 2.0, iron of 15, which is low with iron deficiency anemia. B12 was normal at 1661 . UA showed extremely turbid clarity, 4+ glucose, 1+ ketones, trace blood, 500 leukocyte esterase, 1 1 to 20 rbc's, 20 to 50 white blood cells, 20 to 50 bacteria, many yeast, squamous epithelials less t garcia 5 on UA. Bleeding scan was negative and today chest x-ray showed ill-defined opacities in the right lung base, could represent pneumonia or pneumonitis from aspiration. Impression: 1.Hematochezia. Bleeding scan today was negative. He is on IV Protonix drip and bleeding seemed to have stopped. Bleeding could be from upper GI source or lower. 2.Iron deficiency anemia. Hemoglobin 9.9. Iron is low at 15. 3.Urinary tract infection. 4.Pneumonia with chest x-ray revealing right lung base opacities and prior history of aspiration pne umonias. Recommendations: 1.Continue IV fluids. 2.IV PPI. Continue IV antibiotics. 3.We will proceed with EGD since PPI therapy seems to have stopped the bleeding and then we will pro ceed with colonoscopy. 4.Continue serial H and H, and transfuse p.r.n. Stop any blood thinners, aspirin, Plavix, or others at this time. LAN/JOHNSON Voice ID: [id number] Report ID: [id number]
[2023-06-07] MEDS ORDERED: GOLYTELY 4000 ML PO SCH (17:00)
[2023-06-07] MEDS ORDERED: MAGNESIUM CITRATE 300 ML BOT PO SCH (17:00)
--- NOTE | 2023-06-07 21:28 | P.PN ---
Date of Service: 06/07/23 Vital Signs Temp Pulse Resp BP Pulse Ox 99.0 F 102 H 21 H 167/86 H 98 06/07/23 20:00 06/07/23 21:00 06/07/23 21:00 06/07/23 21:00 06/07/23 21:00 Medications Glucagon (Glucagon 1 Mg/Vial) 1 mg IM 1X PRN; Protocol PRN Reason: HYPOGLYCEMIA Dextrose (Dextrose 10% Water Iv Soln.) 125 mls @ 0 mls/hr IV PRN PRN; Protocol PRN Reason: HYPOGLYCEMIA Dextrose/Water (Dextrose In Water (1-Liter)) 1,000 mls @ 100 mls/hr IV .Q10H [facility] Last Admin: 06/07/23 11:56 Dose: 1,000 mls MEROPENEM/VABORBACTAM 2 gm/ (Sodium Chloride) 250 mls @ 166.667 mls/hr IV Q12HR [facility] Last Admin: 06/07/23 20:49 Dose: 250 mls Pantoprazole Sodium 80 mg/ (Sodium Chloride) 250 mls @ 25 mls/hr IV Q10H [facility]; Protocol Last Admin: 06/07/23 11:55 Dose: 250 mls Insulin Glargine (Insulin Glargine 100 Unit/Ml) 10 unit SQ DAILY [facility] Last Admin: 06/07/23 09:17 Dose: 10 unit Insulin Human Regular (Insulin Regular (Human) 100 Unit/Ml) 0 unit SQ ACHS [facility]; Protocol Last Admin: 06/07/23 20:50 Dose: Not Given Ondansetron HCl (Ondansetron 4 Mg/2 Ml Vial) 4 mg IV Q6H PRN PRN Reason: NAUSEA / VOMITING Scopolamine HBr (Scopolamine Hydrobromide Patch) 1 pat TD Q3D@0900 [facility] Last Admin: 06/06/23 23:30 Dose: 1 pat Sodium Chloride (Sodium Chloride 0.9% 10ml Inj) 10 ml IV UD PRN PRN Reason: Diluant Microbiology Results 06/03/23 06:06 Clean Catch Urine [place] Count - Final >100,000 CFU/ML. 06/03/23 06:06 Clean Catch Urine - Final Pseudomonas Aeruginosa Citrobacter Freundii Complex Assessment/ Plan: Neprology Limited IH/ ROS due to mental status No acute events overnight Vitals, medications, blood work and imaging reviewed in the chart General: In no apparent distress HEENT: Atraumatic Neck: Supple Respiratory: Clear to auscultation bilaterally, Normal air movement Cardiovascular: No edema, Regular rate/rhythm Gastrointestinal: Soft and benign, Non-distended Musculoskeletal: No clubbing, No contractures, Other (Left BKA) Integumentary: No rashes, No cyanosis Neurological: Abnormal speech Laboratory Data (last 24 hrs) 06/03/23 06/03/23 06:05 06:05 WBC 14.80 H Hgb 7.8 L Hct 26.4 L Plt Count 371 Sodium 156 H* Potassium 5.1 BUN 122 H Creatinine 3.95 H Glucose 1138 H* Total Bilirubin 0.5 AST 8 L ALT 49 Alkaline Phosphatase 318 H Imagings Data: EXAM DESCRIPTION: RAD - Chest Single View - 06/03/2023 6:48 am CLINICAL HISTORY: hyperglycemia COMPARISON: Chest Single View dated 02/24/2023; Chest Single View dated 02/06/2023; Chest Single View dated 02/03/2023; Chest Single View dated 02/01/2023 FINDINGS: Lines: Tracheostomy. Lungs: Ill-defined opacities in the right lung base. Pleural: No significant pleural effusions or pneumothorax. Cardiac: The heart size is within normal limits. Mediastinum: Within normal limits. Bones: No acute fractures. Other: None IMPRESSION: Ill-defined opacities in the right lung base could reflect pneumonia or pneumonitis, such as from aspiration. LEFT VENTRICULAR WALL MOTION: DECREASED LEFT VENTRICULAR COMPLIANCE DOPPLER/COLOR FLOW: DECREASED LEFT VENTRICULAR COMPLIANCE COMMENTS: 1. DIASTOLIC DYSFUNCTION 2. NORMAL EJECTION FRACTION 3. NO EFFUSION Conclusions/Impression: Stage II KATLYN likely due to hypovolemia CKD IIIb with nephrotic range proteinuria -No NSAIDs -Continue IVF -Continue ortega Hypernatremia/ Dehydration -Continue IVF D5W Hyperkalemia/ Hypokalemia -Replete prn NAG Acidosis, resolved HTN with CKD/ CHF -Hold antihypertensives at this time Diastolic CHF, chronic -Daily weight DM I with Hyperglycemia & CKD -Continue Lantus -RISS Severe Hypoalbuminemia -Start tube feeds as tolerated -GI evaluation pending for GI bleed BPH with LUTS Hx urinary retention -Continue ortega Acute Cystitis with Hematuria -Continue Abx Hospitalist & ID notes reviewed
[2023-06-08 04:43] LABS: MCV 79.5 fL (80-100); Platelets 364 thou/uL (152-406); RBC Red Blood Cell Count 3.27 M/uL (4.33-5.43)
[2023-06-08 05:13] LABS: Albumin 1.5 g/dL (3.4-5.0); Bilirubin Total 0.2 mg/dL (0.2-1.0); Potassium 3.1 mEq/L (3.5-5.1); Protein, Total 5.4 g/dL (6.4-8.2)
[2023-06-08] MEDS: KCL 20 MEQ/100 mL IVPB 20 MEQ/100 ML BAG IV SCH ×2 (06:27→08:26)
[2023-06-08] MEDS: INSULIN REGULAR (HUMAN) 100 UNIT/ML SQ SCH ×4 (07:30→21:00)
--- NOTE | 2023-06-08 07:59 | P.PN ---
Subjective Date of Service: 06/08/23 Chief Complaint: Hyperglycemia Subjective: No new changes, Improving Physical Examination - Vital Signs Temperature: 98.2 F Blood Pressure: 159/73 Pulse: 78 Respirations: 12 Pulse Ox (%): 97 - Physical Exam General: Alert, Oriented x3 HEENT: Atraumatic Neck: Supple Respiratory: Normal air movement Cardiovascular: Regular rate/rhythm, Normal S1 S2 Gastrointestinal: Soft and benign Musculoskeletal: No swelling Neurological: Normal speech, Normal strength at 5/5 x4 extr Assessment And Plan - Plan - Problems (Diagnosis) (1) Hypernatremia Current Visit: Yes Status: Acute (2) LGI bleed Current Visit: Yes Status: Acute (3) Melanotic stools Current Visit: Yes Status: Acute (4) Acute renal failure Current Visit: No Status: Acute Qualifiers: Acute renal failure type: unspecified Qualified Code(s): N17.9 - Acute kidney failure, unspecified (5) Hyperglycemia Current Visit: No Status: Acute (6) Congestive heart failure Current Visit: No Status: Chronic Qualifiers: Heart failure type: diastolic Heart failure chronicity: chronic Qualified Code(s): I50.32 - Chronic diastolic (congestive) heart failure (7) Coronary artery disease Current Visit: No Status: Chronic Qualifiers: Coronary Disease-Associated Artery/Lesion type: viejas artery [place] vs. transplanted heart: viejas heart Associated angina: without angina Qualified Code(s): I25.10 - Atherosclerotic heart disease of viejas coronary artery without angina pectoris (8) Hypertension Current Visit: No Status: Chronic Qualifiers: Hypertension type: primary hypertension Qualified Code(s): I10 - Essential (primary) hypertension (9) Status post tracheostomy Current Visit: No Status: Chronic (10) Type 1 diabetes Current Visit: No Status: Chronic Qualifiers: Diabetes mellitus complication status: with hyperglycemia Qualified Code(s): E10.65 - Type 1 diabetes mellitus with hyperglycemia (11) CVA (cerebral vascular accident) Current Visit: No Status: Acute Qualifiers: Precerebral and cerebral artery: middle cerebral artery Laterality of affected vessel: unspecified (12) Chronic respiratory failure with hypoxia Current Visit: No Status: Chronic Plan: Patient serum sodium is now improved today. value is 143 this morning. We will continue free water administration as per nephrology recommendation. Serum creatinine still elevated at 2.5. Nephrology following for management recommendation. he had egd and had no ulcers. Planning for colonoscopy today as this could not be done yesterday. We will continue PPI therapy. We will continue other home medication for chronic health issues. he had sputum and urine cultures growing multidrug resistant Citrobacter and Pseudomonas sp organism. ID consult recommendations for chantel noted. we will complete antibiotics for the recommended duration. Discharge Plan: Home Plan to discharge in: Greater than 2 days
[2023-06-08] MEDS: NA CHLORIDE 0.9% IV SCH ×2 (08:24→20:54)
[2023-06-08] MEDS: MEROPENEM IV SCH ×2 (08:24→20:54)
[2023-06-08] MEDS: VABORBACTAM IV SCH ×2 (08:24→20:54)
--- NOTE | 2023-06-08 08:24 | P.PN ---
Subjective Date of Service: 06/08/23 Chief Complaint: Hyperglycemia Subjective: Improving Patient is resting comfortably in bed at this time. In no apparent distress. + abdominal pain Review of Systems 10-point ROS is otherwise unremarkable General: Weakness Gastrointestinal: Abdominal Pain Physical Examination - Vital Signs Temperature: 98.2 F Blood Pressure: 159/73 Pulse: 78 Respirations: 12 Pulse Ox (%): 97 - Physical Exam General: In no apparent distress HEENT: Atraumatic, Normocephalic Neck: Other (tracheostomy) Respiratory: Diminished, Other (trach collar 5LPM) Cardiovascular: Regular rate/rhythm, Edema (trace edema RLE) Gastrointestinal: Normal bowel sounds, Other (PEG tube), Tenderness Musculoskeletal: Other (left BKA) Integumentary: Pressure ulcer (sacrum stage 2) Urinary: Ortega catheter - Studies Laboratory Data - Reviewed Microbiology Data (last 24 hrs): - Reviewed Imagings Data: - Reviewed Medications List Reviewed: Yes Assessment And Plan - Plan Problem List Catheter-Associated Urinary Tract Infection (POA) KATLYN on CKD Diabetes Mellitus type I with hyperglycemia Hypertension Hypothyroidism Catheter-Associated Urinary Tract Infection (POA) - Chronic ortega catheter - History of MDRO infections - Previously on Zosyn (06/03-06/07) which was switched to Vabomere IV 06/07 following urine and sputum culture results. - Urine culture 06/03: Pseudomonas aeruginosa and Citrobacter freundii Chronic respiratory failure with hypoxia Trach dependent Recurrent Aspiration pneumonia - Chest XR 06/03: " Ill-defined opacities in the right lung base could reflect pneumonia or pneumonitis, such as from aspiration." - Sputum culture 06/03: Pseudomonas aeruginosa KATLYN on CKD - Nephrology following Hematochezia - GI following - s/p EGD and colonoscopy 06/07 Blood cultures 06/03: No growth to date Leukocytosis improved ( WBC 10.6) Afebrile. Recommendations - Urine and sputum culture sensitivies with MDR pseudomonas and citrobacter: - Starting patient on Vabomere IV. Continue for at least 7 days (06/07- 05/14) - Monitor WBC and fever trends - Strict blood glucose control - Aspiration precautions - Buttock/sacrum stage 2: Apply barrier cream BID and PRN if soiled. Pressure offloading measures, turn patient q2h, low airloss mattress. . - Renally dose medications Case discussed with Landen Merrill who is in agreement with plan of care.
[2023-06-08] MEDS: D5W 1,000 ML IV SCH ×2 (08:25→20:14)
[2023-06-08] MEDS: PANTOPRAZOLE INJ 80 MG in NA CHLORIDE 0.9% 250 ML IV SCH ×2 (08:25→20:58)
[2023-06-08] MEDS: INSULIN GLARGINE 100 UNIT/ML SQ SCH (08:25)
--- NOTE | 2023-06-08 10:45 | P.PN ---
Date of Service: 06/08/23 Vital Signs Temp Pulse Resp BP Pulse Ox 98.2 F 74 20 141/52 H 98 06/08/23 08:23 06/08/23 10:00 06/08/23 10:00 06/08/23 10:00 06/08/23 10:00 Medications Glucagon (Glucagon 1 Mg/Vial) 1 mg IM 1X PRN; Protocol PRN Reason: HYPOGLYCEMIA Dextrose (Dextrose 10% Water Iv Soln.) 125 mls @ 0 mls/hr IV PRN PRN; Protocol PRN Reason: HYPOGLYCEMIA Dextrose/Water (Dextrose In Water (1-Liter)) 1,000 mls @ 100 mls/hr IV .Q10H [facility] Last Admin: 06/08/23 08:25 Dose: 1,000 mls MEROPENEM/VABORBACTAM 2 gm/ (Sodium Chloride) 250 mls @ 166.667 mls/hr IV Q12HR [facility] Last Admin: 06/08/23 08:24 Dose: 250 mls Pantoprazole Sodium 80 mg/ (Sodium Chloride) 250 mls @ 25 mls/hr IV Q10H [facility]; Protocol Last Admin: 06/08/23 08:25 Dose: 250 mls Insulin Glargine (Insulin Glargine 100 Unit/Ml) 10 unit SQ DAILY [facility] Last Admin: 06/08/23 08:25 Dose: Not Given Insulin Human Regular (Insulin Regular (Human) 100 Unit/Ml) 0 unit SQ ACHS [facility]; Protocol Last Admin: 06/08/23 07:30 Dose: Not Given Ondansetron HCl (Ondansetron 4 Mg/2 Ml Vial) 4 mg IV Q6H PRN PRN Reason: NAUSEA / VOMITING Scopolamine HBr (Scopolamine Hydrobromide Patch) 1 pat TD Q3D@0900 [facility] Last Admin: 06/06/23 23:30 Dose: 1 pat Sodium Chloride (Sodium Chloride 0.9% 10ml Inj) 10 ml IV UD PRN PRN Reason: Diluant Microbiology Results 06/03/23 06:06 Clean Catch Urine [place] Count - Final >100,000 CFU/ML. 06/03/23 06:06 Clean Catch Urine - Final Pseudomonas Aeruginosa Citrobacter Freundii Complex Assessment/ Plan: Neprology Limited IH/ ROS due to mental status No acute events overnight Plan for colonoscopy today Vitals, medications, blood work and imaging reviewed in the chart General: In no apparent distress HEENT: Atraumatic Neck: Supple Respiratory: Clear to auscultation bilaterally, Normal air movement Cardiovascular: No edema, Regular rate/rhythm Gastrointestinal: Soft and benign, Non-distended Musculoskeletal: No clubbing, No contractures, Other (Left BKA) Integumentary: No rashes, No cyanosis Neurological: Abnormal speech Laboratory Data (last 24 hrs) 06/03/23 06/03/23 06:05 06:05 WBC 14.80 H Hgb 7.8 L Hct 26.4 L Plt Count 371 Sodium 156 H* Potassium 5.1 BUN 122 H Creatinine 3.95 H Glucose 1138 H* Total Bilirubin 0.5 AST 8 L ALT 49 Alkaline Phosphatase 318 H Imagings Data: EXAM DESCRIPTION: RAD - Chest Single View - 06/03/2023 6:48 am CLINICAL HISTORY: hyperglycemia COMPARISON: Chest Single View dated 02/24/2023; Chest Single View dated 02/06/2023; Chest Single View dated 02/03/2023; Chest Single View dated 02/01/2023 FINDINGS: Lines: Tracheostomy. Lungs: Ill-defined opacities in the right lung base. Pleural: No significant pleural effusions or pneumothorax. Cardiac: The heart size is within normal limits. Mediastinum: Within normal limits. Bones: No acute fractures. Other: None IMPRESSION: Ill-defined opacities in the right lung base could reflect pneumonia or pneumonitis, such as from aspiration. LEFT VENTRICULAR WALL MOTION: DECREASED LEFT VENTRICULAR COMPLIANCE DOPPLER/COLOR FLOW: DECREASED LEFT VENTRICULAR COMPLIANCE COMMENTS: 1. DIASTOLIC DYSFUNCTION 2. NORMAL EJECTION FRACTION 3. NO EFFUSION Conclusions/Impression: Stage II KATLYN likely due to hypovolemia CKD IIIb with nephrotic range proteinuria -No NSAIDs -Continue IVF -Continue ortega Hypernatremia/ Dehydration -Continue IVF D5W Hyperkalemia/ Hypokalemia -Replete prn NAG Acidosis, resolved HTN with CKD/ CHF -Hold antihypertensives at this time Diastolic CHF, chronic -Daily weight DM I with Hyperglycemia & CKD -Continue Lantus -RISS Severe Hypoalbuminemia -Start tube feeds as tolerated -GI evaluation pending for GI bleed Anemia in chronic illness -Monitor H&H -GI evaluating for GI bleed BPH with LUTS Hx urinary retention -Continue ortega Acute Cystitis with Hematuria -Continue Abx Hospitalist & ID notes reviewed
[2023-06-08] MEDS ORDERED: propofoL 200 MG/20 ML VIAL IV ONE (13:12)
[2023-06-08] MEDS ORDERED: LIDOCAINE 1% MPF 5 ML VIAL ONE (13:12)
[2023-06-08] MEDS ORDERED: NA CHLORIDE 0.9% 1,000 ML ONE (13:15)
[2023-06-08] MEDS: POLYETHYL GLY 3350 17 GM/DOSE FT SCH (20:55)
[2023-06-08] MEDS: NEPRO 1,000 ML BOT FT SCH (20:58)
[2023-06-09 04:51] LABS: Hematocrit 29.5 % (39.6-49.0); Lymphocytes % 17.7 % (15.3-44.8); MCV 79.5 fL (80-100); MPV 7.5 fL (7.6-11.3); Platelets 444 thou/uL (152-406); RBC Red Blood Cell Count 3.71 M/uL (4.33-5.43)
[2023-06-09 05:09] LABS: Magnesium 3.3 mg/dL (1.6-2.4); Phosphorus 3.7 mg/dL (2.5-4.9); Potassium 3.5 mEq/L (3.5-5.1)
[2023-06-09] MEDS ORDERED: POTASSIUM 25 MEQ EFFERV TAB PO ONE (06:00)
[2023-06-09] MEDS: D5W 1,000 ML IV SCH (06:06)
[2023-06-09] MEDS: PANTOPRAZOLE INJ 80 MG in NA CHLORIDE 0.9% 250 ML IV SCH ×2 (06:07→13:48)
[2023-06-09] MEDS ORDERED: POTASSIUM 25 MEQ EFFERV TAB ONE (06:23)
[2023-06-09] MEDS: INSULIN REGULAR (HUMAN) 100 UNIT/ML SQ SCH ×4 (07:30→19:50)
--- NOTE | 2023-06-09 08:36 | P.PN ---
Date of Service: 06/09/23 Chief Complaint: Hyperglycemia Subjective: Patient seen and examined at bedside. In no apparent distress. No acute events reported overnight. When asked if improvement in abdominal pain, patient nodded head yes. Physical Examination Temp Pulse Resp BP Pulse Ox 97.4 F 85 20 140/61 100 06/09/23 07:00 06/09/23 07:00 06/09/23 07:00 06/09/23 07:00 06/09/23 07:00 General: In no apparent distress HEENT: Atraumatic, Normocephalic Neck: Supple. Tracheostomy Respiratory: Diminished. Tracheostomy, on trach collar 5LPM Cardiovascular: Regular rate/rhythm. Gastrointestinal: Normal bowel sounds. PEG tube. Musculoskeletal: Left BKA. Right foot transmetatarsal amputation. Integumentary: Pressure ulcer sacrum stage 2 Urinary: Ortega catheter draining clear yellow urine. - Studies Laboratory Data - Reviewed Microbiology Data 06/03/23 06:06 Clean Catch Urine [place] Count - Final >100,000 CFU/ML. 06/03/23 06:06 Clean Catch Urine - Final Pseudomonas Aeruginosa Citrobacter Freundii Complex Imagings Data: - Reviewed Medications List Reviewed: Yes Assessment And Plan Problem List Catheter-Associated Urinary Tract Infection (POA) KATLYN on CKD Diabetes Mellitus type I with hyperglycemia Hypertension Hypothyroidism Catheter-Associated Urinary Tract Infection (POA) - Chronic ortega catheter - History of MDRO infections - Urine culture 06/03: Pseudomonas aeruginosa and Citrobacter freundii - Previously on Zosyn (06/03-06/07) which was switched to Vabomere IV 06/07 following urine and sputum culture results. Chronic respiratory failure with hypoxia Trach dependent Recurrent Aspiration pneumonia - Trach dependent. On trach collar at 5 LPM - Chest XR 06/03: " Ill-defined opacities in the right lung base could reflect pneumonia or pneumonitis, such as from aspiration." - Sputum culture 06/03: Pseudomonas aeruginosa KATLYN on CKD - Nephrology following Hematochezia - GI Dr. Parnell following - s/p EGD on 06/07 and colonoscopy on 06/08 - finding of rectal ulcer during colonscopy Blood cultures 06/03: No growth to date Leukocytosis improving Afebrile. Recommendations - Urine and sputum culture with MDR pseudomonas and citrobacter: - Continue Vabomere IV for 7 days (06/07-05/14) - Monitor WBC and fever trends - Strict blood glucose control - Aspiration precautions - Buttock/sacrum stage 2: Apply barrier cream BID and PRN if soiled. Pressure offloading measures, turn patient q2h, low airloss mattress. . - Renally dose medications Case discussed with Landen Merrill who is in agreement with plan of care.
--- NOTE | 2023-06-09 09:04 | P.PN ---
Subjective Date of Service: 06/10/23 Chief Complaint: Hyperglycemia Subjective: No new changes, Improving Physical Examination - Vital Signs Temperature: 97.4 F Blood Pressure: 140/61 Pulse: 85 Respirations: 20 Pulse Ox (%): 100 - Physical Exam General: Alert, Oriented x3 HEENT: Atraumatic Neck: Supple Respiratory: Normal air movement Cardiovascular: Regular rate/rhythm, Normal S1 S2 Gastrointestinal: Soft and benign Musculoskeletal: No swelling - Studies Medications List Reviewed: Yes Assessment And Plan - Plan - Problems (Diagnosis) (1) Hypernatremia Current Visit: Yes Status: Acute (2) LGI bleed Current Visit: Yes Status: Acute (3) Melanotic stools Current Visit: Yes Status: Acute (4) Acute renal failure Current Visit: No Status: Acute Qualifiers: Acute renal failure type: unspecified Qualified Code(s): N17.9 - Acute kidney failure, unspecified (5) Hyperglycemia Current Visit: No Status: Acute (6) Congestive heart failure Current Visit: No Status: Chronic Qualifiers: Heart failure type: diastolic Heart failure chronicity: chronic Qualified Code(s): I50.32 - Chronic diastolic (congestive) heart failure (7) Coronary artery disease Current Visit: No Status: Chronic Qualifiers: Coronary Disease-Associated Artery/Lesion type: [place] artery [place] vs. transplanted heart: [place] heart Associated angina: without angina Qualified Code(s): I25.10 - Atherosclerotic heart disease of [place] coronary artery without angina pectoris (8) Hypertension Current Visit: No Status: Chronic Qualifiers: Hypertension type: primary hypertension Qualified Code(s): I10 - Essential (primary) hypertension (9) Status post tracheostomy Current Visit: No Status: Chronic (10) Type 1 diabetes Current Visit: No Status: Chronic Qualifiers: Diabetes mellitus complication status: with hyperglycemia Qualified Code(s): E10.65 - Type 1 diabetes mellitus with hyperglycemia (11) CVA (cerebral vascular accident) Current Visit: No Status: Acute Qualifiers: Precerebral and cerebral artery: middle cerebral artery Laterality of affected vessel: unspecified (12) Chronic respiratory failure with hypoxia Current Visit: No Status: Chronic Plan: Patient serum sodium is now improved today. value is 139 this morning. We will continue free water administration as per nephrology recommendation. Serum creatinine still elevated at 2.5. Nephrology following for management recommendation. he had egd and had no ulcers. Planning for colonoscopy today as this could not be done yesterday. We will continue PPI therapy. We will continue other home medication for chronic health issues. he had sputum and urine cultures growing multidrug resistant Citrobacter and Pseudomonas sp organism. ID consult recommendations for chantel noted. we will complete antibiotics for the recommended duration. Discharge Plan: Home Plan to discharge in: Greater than 2 days
[2023-06-09] MEDS: NEPRO 1,000 ML BOT FT SCH ×3 (09:29→19:50)
[2023-06-09] MEDS: SCOPOLAMINE HYDROBROMIDE PATCH TD SCH (09:29)
[2023-06-09] MEDS: INSULIN GLARGINE 100 UNIT/ML SQ SCH (09:37)
[2023-06-09] MEDS: POLYETHYL GLY 3350 17 GM/DOSE FT SCH ×3 (09:38→19:50)
[2023-06-09] MEDS ORDERED: POLYETHYL GLY 3350 17 GM/DOSE ONE ×2 (09:47→13:58)
[2023-06-09] MEDS: NA CHLORIDE 0.9% IV SCH ×2 (09:55→17:02)
[2023-06-09] MEDS: VABORBACTAM IV SCH ×2 (09:55→17:02)
[2023-06-09] MEDS: MEROPENEM IV SCH ×2 (09:55→17:02)
--- NOTE | 2023-06-09 11:42 | P.PN ---
Nephrology note (S) Pt remains in stable condition, remains on TC, O2 requirements stable (O) Vitals, medications, blood work and imaging reviewed in the chart. General: Thin, frail HEENT: Atraumatic Neck: Supple. Trach collar Respiratory: b/l air entry, reduced BS at bases Cardiovascular: No edema, Regular rate/rhythm Gastrointestinal: Soft and benign, Non-distended PEG present, ortega present Musculoskeletal: Muscle mass loss Left BKA Integumentary: No rashes Blood work reviewed in the chart. Conclusions/Impression: Stage II KATLYN (recurrent) on underlying CKD IV with proteinuria -Frequent KATLYN episodes due to pre-renal azotemia, dehydration/vol depletion, UTI, sepsis, other. Cr level has recovered back to baseline levels and remains stable. Note limitations of eGFR calculations also explained, pt does have loss of muscle mass. Hypernatremia, resolved -Free water flushes resumed, d/c hypotonic D5W IVF. Monitor Na levels Chronic resp failure -Hx of MDR organism growth, management per IM/ID HTN with CKD -Monitor BP. Given his CAD and DM, target BP < 130/80 Recurrent lower urinary tract infectious disease, in the setting of indwelling bladder catheter -UCx noted, Abx per ID, dose for reduced CrCl, cont ortega care, exchange every 30 days Amrit Howard MD, EMMA
[2023-06-09] MEDS ORDERED: MEROPENEM IV SCH (17:00)
[2023-06-09] MEDS ORDERED: NA CHLORIDE 0.9% IV SCH (17:00)
[2023-06-09] MEDS ORDERED: VABORBACTAM IV SCH (17:00)
--- NOTE | 2023-06-09 17:01 | P.PN ---
Subjective Date of Service: 06/09/23 Chief Complaint: Hematochezia. Stercoral ulcers in rectum. Tolerating TFs Subjective: Improving (No bleeding. Tolerating tube feeds.) Physical Examination - Vital Signs Temperature: 98.1 F Blood Pressure: 152/72 Pulse: 95 Respirations: 18 Pulse Ox (%): 100 - Studies Medications List Reviewed: Yes Assessment And Plan - Current Problems (Diagnosis) (1) Hematochezia Current Visit: Yes Status: Acute (2) Pneumonia Current Visit: No Status: Acute Qualifiers: Pneumonia type: due to unspecified organism Laterality: bilateral Lung location: lower lobe of lung Qualified Code(s): J18.9 - Pneumonia, unspecified organism (3) Anemia Current Visit: No Status: Chronic Qualifiers: Anemia type: due to chronic kidney disease Chronic kidney disease stage: stage 4 (severe) Qualified Code(s): N18.4 - Chronic kidney disease, stage 4 (severe); D63.1 - Anemia in chronic kidney disease - Plan REC: 1) Continue TFs 2) Continue Miralax in 8 ozs water per PEG tube tid 3) Monitor labs 4) Decrease Protonix from IV drip to qd 40 mg dosing
[2023-06-09] MEDS: D10W 125 ML IV PRN (23:58)
[2023-06-10] MEDS: MEROPENEM IV SCH ×3 (00:51→16:35)
[2023-06-10] MEDS: VABORBACTAM IV SCH ×3 (00:51→16:35)
[2023-06-10] MEDS: NA CHLORIDE 0.9% IV SCH ×3 (00:51→16:35)
[2023-06-10] MEDS ORDERED: D5 0.45 NS 1,000 ML IV ONE (00:55)
[2023-06-10] MEDS ORDERED: D5 0.45 NS 1,000 ML IV SCH (01:00)
[2023-06-10] MEDS: D10W 125 ML IV PRN (02:47)
[2023-06-10] MEDS: DEXTROSE 10%-WATER 500 ML IV SCH (05:43)
[2023-06-10] MEDS ORDERED: SODIUM CHLORIDE 0.9% 10ML INJ IV PRN (06:13)
[2023-06-10] MEDS: INSULIN REGULAR (HUMAN) 100 UNIT/ML SQ SCH ×4 (07:30→21:10)
[2023-06-10] MEDS: INSULIN GLARGINE 100 UNIT/ML SQ SCH (08:56)
[2023-06-10] MEDS: PANTOPRAZOLE 40 MG INJ IVP SCH (08:57)
[2023-06-10] MEDS: POLYETHYL GLY 3350 17 GM/DOSE FT SCH ×2 (08:58→14:08)
[2023-06-10] MEDS: NEPRO 1,000 ML BOT FT SCH ×3 (08:58→21:07)
[2023-06-10 10:21] LABS: Absolute Lymphocytes (CBC) 2.5 K/uL (0.7-4.9); Hematocrit 33.9 % (39.6-49.0); Lymphocytes % 22.1 % (15.3-44.8); MCV 79.7 fL (80-100); MPV 7.7 fL (7.6-11.3); Platelets 520 thou/uL (152-406); RBC Red Blood Cell Count 4.26 M/uL (4.33-5.43)
[2023-06-10 10:39] LABS: Albumin 1.5 g/dL (3.4-5.0); Bilirubin Total 0.2 mg/dL (0.2-1.0); Potassium 3.6 mEq/L (3.5-5.1)
--- NOTE | 2023-06-10 12:20 | P.PN ---
Subjective Date of Service: 06/10/23 Chief Complaint: Hyperglycemia Subjective: No new changes, Improving Physical Examination - Vital Signs Temperature: 97.4 F Blood Pressure: 140/61 Pulse: 85 Respirations: 20 Pulse Ox (%): 100 - Physical Exam General: Alert HEENT: Atraumatic, Other (trach in place.) Neck: Supple Respiratory: Normal air movement Cardiovascular: Regular rate/rhythm, Normal S1 S2 Gastrointestinal: Soft and benign Musculoskeletal: No swelling - Studies Medications List Reviewed: Yes Assessment And Plan - Plan - Problems (Diagnosis) (1) Hypernatremia Current Visit: Yes Status: Acute (2) LGI bleed Current Visit: Yes Status: Acute (3) Melanotic stools Current Visit: Yes Status: Acute (4) Acute renal failure Current Visit: No Status: Acute Qualifiers: Acute renal failure type: unspecified Qualified Code(s): N17.9 - Acute kidney failure, unspecified (5) Hyperglycemia Current Visit: No Status: Acute (6) Congestive heart failure Current Visit: No Status: Chronic Qualifiers: Heart failure type: diastolic Heart failure chronicity: chronic Qualified Code(s): I50.32 - Chronic diastolic (congestive) heart failure (7) Coronary artery disease Current Visit: No Status: Chronic Qualifiers: Coronary Disease-Associated Artery/Lesion type: [place] artery [place] vs. transplanted heart: [place] heart Associated angina: without angina Qualified Code(s): I25.10 - Atherosclerotic heart disease of [place] coronary artery without angina pectoris (8) Hypertension Current Visit: No Status: Chronic Qualifiers: Hypertension type: primary hypertension Qualified Code(s): I10 - Essential (primary) hypertension (9) Status post tracheostomy Current Visit: No Status: Chronic (10) Type 1 diabetes Current Visit: No Status: Chronic Qualifiers: Diabetes mellitus complication status: with hyperglycemia Qualified Code(s): E10.65 - Type 1 diabetes mellitus with hyperglycemia (11) CVA (cerebral vascular accident) Current Visit: No Status: Acute Qualifiers: Precerebral and cerebral artery: middle cerebral artery Laterality of affected vessel: unspecified (12) Chronic respiratory failure with hypoxia Current Visit: No Status: Chronic Plan: Patient serum sodium is now improved today. value is 143 this morning. We will continue free water administration as per nephrology recommendation. Serum creatinine still elevated at 2.5. Nephrology following for management recommendation. colonoscopy revealed sterocal ulcers in rectum. Miralax dose adjusted as per GI recs. We will continue PPI therapy. We will continue other home medication for chronic health issues. he had sputum and urine cultures growing multidrug resistant Citrobacter and Pseudomonas sp organism. ID consult recommendations for chantel noted. we will complete antibiotics for the recommended duration. Stomach ulcer wound growing MRSA and Enterobacter, ID following. Discharge Plan: back to facility. Plan to discharge in: Greater than 2 days
--- NOTE | 2023-06-10 14:41 | EKG ---
Test Date: 2023-06-03 Test Time: 06:14:43 [place] Breaker: RV MEASUREMENT RESULTS: Intervals: Rate: 82 AK: 132 QRSD: 88 QT: 380 QTc: 443 [place]: P: 43 AK: 132 QRS: 89 T: -8 INTERPRETIVE STATEMENTS: Sinus rhythm with premature atrial complexes Nonspecific ST abnormality Abnormal ECG Compared to ECG 04/23/2023 04:55:57 Atrial premature complex(es) now present ST (T wave) deviation now present Electronically Signed On 06-10-23 14:20:41 [employer] PHYSICIAN by Jimbo Elliott
--- NOTE | 2023-06-10 16:32 | P.PN ---
Subjective Date of Service: 06/11/23 Chief Complaint: Hematochezia, anemia, stercoral ulcers in rectum, constipation Subjective: Improving (Hgb up from 9.5 yesterday to 10.9 today. No bleeding overnight. Having 3-5 stools per day now on Miralax tid.) Review of Systems 10-point ROS is otherwise unremarkable General: Weakness (Improved. ) Physical Examination - Vital Signs Temperature: 97.6 F Blood Pressure: 107/88 Pulse: 97 Respirations: 20 Pulse Ox (%): 98 - Physical Exam General: Alert, In no apparent distress, Oriented x3, Cooperative HEENT: Atraumatic, Normocephalic, PERRLA, EOMI Neck: Supple Respiratory: Normal air movement Cardiovascular: Normal pulses Gastrointestinal: Soft and benign, No tenderness, No rebound, No guarding Neurological: Normal strength at 5/5 x4 extr - Studies Medications List Reviewed: Yes Assessment And Plan - Current Problems (Diagnosis) (1) Hematochezia Current Visit: Yes Status: Acute Comment: Improved. (2) Pneumonia Current Visit: No Status: Acute Qualifiers: Pneumonia type: due to unspecified organism Laterality: bilateral Lung location: lower lobe of lung Qualified Code(s): J18.9 - Pneumonia, unspecified organism (3) Anemia Current Visit: No Status: Chronic Qualifiers: Anemia type: due to chronic kidney disease Chronic kidney disease stage: stage 4 (severe) Qualified Code(s): N18.4 - Chronic kidney disease, stage 4 (severe); D63.1 - Anemia in chronic kidney disease - Plan REC: 1) Continue TFs 2) Decrease Miralax from tid to qd dosing 3) Monitor labs 4) Protonix 40 mg qd
[2023-06-11] MEDS: DEXTROSE 10%-WATER 500 ML IV SCH ×3 (01:15→21:15)
[2023-06-11] MEDS: VABORBACTAM IV SCH ×3 (01:18→18:30)
[2023-06-11] MEDS: NA CHLORIDE 0.9% IV SCH ×3 (01:18→18:30)
[2023-06-11] MEDS: MEROPENEM IV SCH ×3 (01:18→18:30)
[2023-06-11 04:57] LABS: Absolute Lymphocytes (CBC) 2.9 K/uL (0.7-4.9); Hematocrit 30.8 % (39.6-49.0); Lymphocytes % 26.4 % (15.3-44.8); MCV 79.8 fL (80-100); MPV 7.7 fL (7.6-11.3); Platelets 584 thou/uL (152-406); RBC Red Blood Cell Count 3.86 M/uL (4.33-5.43)
[2023-06-11 05:12] LABS: Potassium 3.1 mEq/L (3.5-5.1)
[2023-06-11] MEDS ORDERED: POTASSIUM 25 MEQ EFFERV TAB PO ONE (06:00)
[2023-06-11] MEDS: INSULIN REGULAR (HUMAN) 100 UNIT/ML SQ SCH ×4 (08:40→22:33)
[2023-06-11] MEDS: POLYETHYL GLY 3350 17 GM/DOSE FT SCH (08:41)
[2023-06-11] MEDS: NEPRO 1,000 ML BOT FT SCH ×3 (08:41→22:32)
[2023-06-11] MEDS: INSULIN GLARGINE 100 UNIT/ML SQ SCH (08:42)
[2023-06-11] MEDS: PANTOPRAZOLE 40 MG INJ IVP SCH (08:42)
--- NOTE | 2023-06-11 09:37 | P.PN ---
Subjective Date of Service: 06/11/23 Chief Complaint: Hematochezia, anemia, stercoral ulcers in rectum, constipation Subjective: Improving (No further bleeding / hematochezia. Hgb stable at 10. Tolerating TFs.) Review of Systems Unremarkable Physical Examination - Vital Signs Temperature: 97.6 F Blood Pressure: 107/88 Pulse: 97 Respirations: 20 Pulse Ox (%): 98 - Physical Exam General: Alert, In no apparent distress, Oriented x3, Cooperative HEENT: Atraumatic, Normocephalic, PERRLA, EOMI Neck: Supple Cardiovascular: Normal pulses Gastrointestinal: Non-distended, No tenderness, No rebound, No guarding Neurological: Normal strength at 5/5 x4 extr - Studies Medications List Reviewed: Yes Assessment And Plan - Current Problems (Diagnosis) (1) Hematochezia Current Visit: Yes Status: Acute Comment: Improved. (2) Pneumonia Current Visit: No Status: Acute Qualifiers: Pneumonia type: due to unspecified organism Laterality: bilateral Lung location: lower lobe of lung Qualified Code(s): J18.9 - Pneumonia, unspecified organism (3) Anemia Current Visit: No Status: Chronic Qualifiers: Anemia type: due to chronic kidney disease Chronic kidney disease stage: stage 4 (severe) Qualified Code(s): N18.4 - Chronic kidney disease, stage 4 (severe); D63.1 - Anemia in chronic kidney disease - Plan REC: 1) Continue TFs 2) Continue Miralax qd dosing 3) Monitor labs 4) Protonix 40 mg qd
--- NOTE | 2023-06-11 09:53 | P.PN ---
Subjective Date of Service: 06/11/23 Chief Complaint: Hematochezia, anemia, stercoral ulcers in rectum, constipation Subjective: No new changes, Improving Physical Examination - Vital Signs Temperature: 97.6 F Blood Pressure: 107/88 Pulse: 97 Respirations: 20 Pulse Ox (%): 98 - Physical Exam General: Alert HEENT: Atraumatic Neck: Supple Respiratory: Normal air movement Cardiovascular: Regular rate/rhythm, Normal S1 S2 Gastrointestinal: Soft and benign Musculoskeletal: No swelling - Studies Medications List Reviewed: Yes Assessment And Plan - Plan - Problems (Diagnosis) (1) Hypernatremia Current Visit: Yes Status: Acute (2) LGI bleed Current Visit: Yes Status: Acute (3) Melanotic stools Current Visit: Yes Status: Acute (4) Acute renal failure Current Visit: No Status: Acute Qualifiers: Acute renal failure type: unspecified Qualified Code(s): N17.9 - Acute kidney failure, unspecified (5) Hyperglycemia Current Visit: No Status: Acute (6) Congestive heart failure Current Visit: No Status: Chronic Qualifiers: Heart failure type: diastolic Heart failure chronicity: chronic Qualified Code(s): I50.32 - Chronic diastolic (congestive) heart failure (7) Coronary artery disease Current Visit: No Status: Chronic Qualifiers: Coronary Disease-Associated Artery/Lesion type: [place] artery [place] vs. transplanted heart: [place] heart Associated angina: without angina Qualified Code(s): I25.10 - Atherosclerotic heart disease of [place] coronary artery without angina pectoris (8) Hypertension Current Visit: No Status: Chronic Qualifiers: Hypertension type: primary hypertension Qualified Code(s): I10 - Essential (primary) hypertension (9) Status post tracheostomy Current Visit: No Status: Chronic (10) Type 1 diabetes Current Visit: No Status: Chronic Qualifiers: Diabetes mellitus complication status: with hyperglycemia Qualified Code(s): E10.65 - Type 1 diabetes mellitus with hyperglycemia (11) CVA (cerebral vascular accident) Current Visit: No Status: Acute Qualifiers: Precerebral and cerebral artery: middle cerebral artery Laterality of af fected vessel: unspecified (12) Chronic respiratory failure with hypoxia Current Visit: No Status: Chronic Plan: Patient serum sodium is now improved today. value is 141 this morning. We will continue free water administration as per nephrology recommendation. Serum creatinine still elevated at 2.11 but this is improved. Nephrology following for management recommendation. colonoscopy revealed sterocal ulcers in rectum. Miralax dose adjusted as per GI recs. We will continue PPI therapy. We will continue other home medication for chronic health issues. he had sputum and urine cultures growing multidrug resistant Citrobacter and Pseudomonas sp organism. ID consult recommendations for chantel noted. we will complete antibiotics for the recommended duration. Stomach ulcer wound growing MRSA and Enterobacter, ID following. Discharge Plan: back to facility. Plan to discharge in: Greater than 2 days
[2023-06-11] MEDS ORDERED: NA CHLORIDE 0.9% 250 ML ONE (19:04)
[2023-06-12] MEDS: NA CHLORIDE 0.9% IV SCH ×2 (01:03→09:36)
[2023-06-12] MEDS: VABORBACTAM IV SCH ×2 (01:03→09:36)
[2023-06-12] MEDS: MEROPENEM IV SCH ×2 (01:03→09:36)
--- NOTE | 2023-06-12 06:36 | P.PN ---
Date of Service: 06/12/23 Subjective: Physical Exam: Vitals: reviewed GEN: Alert, oriented, NAD HEENT: Normal conjunctiva, sclera anicteric CV: Regular rate & rhythm, no edema Pulm: Nonlabored respiraitons, Diminished. Trach ABD: Soft, nontender, nondistended, PEG tube MSK: Left BKA. Right foot transmetatarsal amputation. Integumentary: Pressure ulcer sacrum stage 2 Neuro: Normal speech, normal affect Chronic Ortega in place Problem List: Lower GI bleed Catheter-Associated Urinary Tract Infection (POA) Chronic respiratory failure with hypoxia Recurrent Aspiration pneumonia KATLYN on CKD4 Hypernatremia chronic CHF CAD Hx of CVA Hyperglycemia in DM1 Hypertension Hypothyroidism Depressive Disorder BPH GERD/Bile acid reflux Plan: ID consulted Chronic ortega catheter History of MDRO infections Urine culture 06/03: Pseudomonas aeruginosa and Citrobacter freundii Previously on Zosyn (06/03-06/07) switched to Vabomere IV 06/07 following cx results Trach dependent. On trach collar at 5 LPM CXR (06/03): Ill-defined opacities in the right lung base could reflect pneumonia or pneumonitis, such as from aspiration. Sputum culture 06/03: Pseudomonas aeruginosa Nephrology consulted Creatinine improving continue free water administration as per nephrology recommendation. GI consulted s/p EGD on 06/07 and colonoscopy on 06/08 revealed sterocal ulcers in rectum. Stomach ulcer wound growing MRSA and Enterobacter, Miralax dose adjusted as per GI recs. continue PPI therapy confirm home medications, restart as appropriate
[2023-06-12 07:30] VITALS: BMI 19.9
[2023-06-12] MEDS: INSULIN REGULAR (HUMAN) 100 UNIT/ML SQ SCH ×2 (07:30→11:30)
[2023-06-12] MEDS: NEPRO 1,000 ML BOT FT SCH ×2 (09:00→14:00)
[2023-06-12] MEDS: INSULIN GLARGINE 100 UNIT/ML SQ SCH (09:00)
[2023-06-12] MEDS: SCOPOLAMINE HYDROBROMIDE PATCH TD SCH (09:00)
[2023-06-12] MEDS: POLYETHYL GLY 3350 17 GM/DOSE FT SCH ×2 (09:00)
[2023-06-12] MEDS: PANTOPRAZOLE 40 MG INJ IVP SCH (09:36)
[2023-06-12] MEDS ORDERED: POTASSIUM 25 MEQ EFFERV TAB FT ONE (10:30)
[2023-06-12 12:11] VITALS: TEMP 97.9
[2023-06-12 12:46] VITALS: O2SAT 28
--- NOTE | 2023-06-12 15:23 | P.PN ---
Date of Service: 06/12/23 Chief Complaint: Hyperglycemia Subjective: Patient seen and examined at bedside. In no apparent distress. Unlabored respirations on trach collar 5LPM. No acute events reported overnight. Physical Examination Temp Pulse Resp BP Pulse Ox 97.9 F 81 16 160/77 H 96 06/12/23 12:00 06/12/23 12:00 06/12/23 12:00 06/12/23 12:00 06/12/23 12:00 General: In no apparent distress HEENT: Atraumatic, Normocephalic Neck: Supple. Tracheostomy Respiratory: Diminished. Tracheostomy, on trach collar 5LPM Cardiovascular: Regular rate/rhythm. Gastrointestinal: Normal bowel sounds. PEG tube. Musculoskeletal: Left BKA. Right foot transmetatarsal amputation. Integumentary: Pressure ulcer sacrum stage 2 Urinary: Ortega catheter draining clear yellow urine. - Studies Laboratory Data - Reviewed Microbiology Data 06/03/23 06:06 Clean Catch Urine [place] Count - Final >100,000 CFU/ML. 06/03/23 06:06 Clean Catch Urine - Final Pseudomonas Aeruginosa Citrobacter Freundii Complex Imagings Data: - Reviewed Medications List Reviewed: Yes Assessment And Plan Problem List Catheter-Associated Urinary Tract Infection (POA) KATLYN on CKD Diabetes Mellitus type I with hyperglycemia Hypertension Hypothyroidism Catheter-Associated Urinary Tract Infection (POA) - Chronic ortega catheter - History of MDRO infections - Urine culture 06/03: Pseudomonas aeruginosa and Citrobacter freundii - Previously on Zosyn (06/03-06/07) which was switched to Vabomere IV 06/07 following urine and sputum culture results. Chronic respiratory failure with hypoxia Trach dependent Recurrent Aspiration pneumonia - Trach dependent. On trach collar at 5 LPM - Chest XR 06/03: " Ill-defined opacities in the right lung base could reflect pneumonia or pneumonitis, such as from aspiration." - Sputum culture 06/03: Pseudomonas aeruginosa PEG tube site infection - Wound culture: MRSA and E.faecalis KATLYN on CKD - Nephrology following Hematochezia - GI Dr. Parnell following - s/p EGD on 06/07 and colonoscopy on 06/08 - finding of rectal ulcer during colonscopy Blood cultures 06/03: No growth to date Leukocytosis improving Afebrile. Recommendations - Urine and sputum culture with MDR pseudomonas and citrobacter: - Continue Vabomere IV for 7 days (06/07-05/14) - PEG tube site: Rinse skin around PEG tube with NS, pat dry; apply Mupirocin topical ointment on skin surrounding PEG tube then cover with split drain gauze. At least once per day. - Monitor WBC and fever trends - Strict blood glucose control - Aspiration precautions - Buttock/sacrum stage 2: Apply barrier cream BID and PRN if soiled. Pressure offloading measures, turn patient q2h, low airloss mattress. - Renally dose medications Case discussed with Landen Merrill who is in agreement with plan of care.
[2023-06-12 16:16] VITALS: BP 155/73
[2023-06-12] MEDS ORDERED: MUPIROCIN 2% OINT 22GM TUBE TOP SCH (21:00)
--- NOTE | 2023-06-12 21:22 | P.PN ---
Date of Service: 06/12/23 Vital Signs Temp Pulse Resp BP Pulse Ox 97.9 F 77 16 155/73 H 96 06/12/23 16:00 06/12/23 16:00 06/12/23 16:00 06/12/23 16:00 06/12/23 16:00 Microbiology Results 06/03/23 06:06 Clean Catch Urine [place] Count - Final >100,000 CFU/ML. 06/03/23 06:06 Clean Catch Urine - Final Pseudomonas Aeruginosa Citrobacter Freundii Complex Assessment/ Plan: Neprology Limited IH/ ROS due to mental status No acute events overnight Vitals, medications, blood work and imaging reviewed in the chart General: In no apparent distress HEENT: Atraumatic Neck: Supple Respiratory: Clear to auscultation bilaterally, Normal air movement Cardiovascular: No edema, Regular rate/rhythm Gastrointestinal: Soft and benign, Non-distended Musculoskeletal: No clubbing, No contractures, Other (Left BKA) Integumentary: No rashes, No cyanosis Neurological: Abnormal speech Laboratory Data (last 24 hrs) 06/03/23 06/03/23 06:05 06:05 WBC 14.80 H Hgb 7.8 L Hct 26.4 L Plt Count 371 Sodium 156 H* Potassium 5.1 BUN 122 H Creatinine 3.95 H Glucose 1138 H* Total Bilirubin 0.5 AST 8 L ALT 49 Alkaline Phosphatase 318 H Imagings Data: EXAM DESCRIPTION: RAD - Chest Single View - 06/03/2023 6:48 am CLINICAL HISTORY: hyperglycemia COMPARISON: Chest Single View dated 02/24/2023; Chest Single View dated 02/06/2023; Chest Single View dated 02/03/2023; Chest Single View dated 02/01/2023 FINDINGS: Lines: Tracheostomy. Lungs: Ill-defined opacities in the right lung base. Pleural: No significant pleural effusions or pneumothorax. Cardiac: The heart size is within normal limits. Mediastinum: Within normal limits. Bones: No acute fractures. Other: None IMPRESSION: Ill-defined opacities in the right lung base could reflect pneumonia or pneumonitis, such as from aspiration. LEFT VENTRICULAR WALL MOTION: DECREASED LEFT VENTRICULAR COMPLIANCE DOPPLER/COLOR FLOW: DECREASED LEFT VENTRICULAR COMPLIANCE COMMENTS: 1. DIASTOLIC DYSFUNCTION 2. NORMAL EJECTION FRACTION 3. NO EFFUSION Conclusions/Impression: Stage II KATLYN likely due to hypovolemia CKD IIIb with nephrotic range proteinuria -No NSAIDs -Continue IVF -Continue ortega Hypernatremia/ Dehydration -Continue IVF Hyperkalemia/ Hypokalemia -Replete prn NAG Acidosis, resolved HTN with CKD/ CHF -Hold antihypertensives at this time Diastolic CHF, chronic -Daily weight DM I with Hyperglycemia & CKD -Continue Lantus -RISS Severe Hypoalbuminemia -Continue tube feeds as tolerated -GI evaluation pending for GI bleed Anemia in chronic illness -Monitor H&H BPH with LUTS Hx urinary retention -Continue ortega Acute Cystitis with Hematuria -Continue Abx Hospitalist & ID notes reviewed
== END 2023-06-12 18:15 | DRG 698 ==
LOC: ER 05:54 → ERHOLD 07:38 → 3RD-ICU 19:48 → 2ND 06-11 10:18
PROVIDERS: ADMIT Hospitalist; ATTEND Hospitalist
PROC: 30233N1 Transfusion of Nonautologous Red Blood Cells into Peripheral Vein, Percutaneous Approach (ICD-10-PCS; 2023-06-03)
PROC: 0DJ08ZZ Inspection of Upper Intestinal Tract, Via Natural or Artificial Opening Endoscopic (ICD-10-PCS; principal; 2023-06-06 13:00)
DX: T83.511A Infection and inflammatory reaction due to indwelling urethral catheter, initial encounter (principal); J69.0 Pneumonitis due to inhalation of food and vomit; D62 Acute posthemorrhagic anemia; N17.9 Acute kidney failure, unspecified; J96.11 Chronic respiratory failure with hypoxia; N18.4 Chronic kidney disease, stage 4 (severe); E87.20 Acidosis, unspecified; E87.0 Hyperosmolality and hypernatremia; I13.0 Hypertensive heart and chronic kidney disease with heart failure and stage 1 through stage 4 chronic kidney disease, or unspecified chronic kidney disease; N30.01 Acute cystitis with hematuria; I50.32 Chronic diastolic (congestive) heart failure; Z16.24 Resistance to multiple antibiotics; K92.1 Melena; K62.6 Ulcer of anus and rectum; N18.32 Chronic kidney disease, stage 3b; E10.22 Type 1 diabetes mellitus with diabetic chronic kidney disease; D63.1 Anemia in chronic kidney disease; L89.152 Pressure ulcer of sacral region, stage 2; K21.9 Gastro-esophageal reflux disease without esophagitis; E03.9 Hypothyroidism, unspecified; E78.5 Hyperlipidemia, unspecified; E86.0 Dehydration; K59.00 Constipation, unspecified; E87.6 Hypokalemia; F32.A Depression, unspecified; E88.09 Other disorders of plasma-protein metabolism, not elsewhere classified; B96.5 Pseudomonas (aeruginosa) (mallei) (pseudomallei) as the cause of diseases classified elsewhere; B95.2 Enterococcus as the cause of diseases classified elsewhere; N40.1 Benign prostatic hyperplasia with lower urinary tract symptoms; R33.8 Other retention of urine; Z79.4 Long term (current) use of insulin; Z93.0 Tracheostomy status; Z88.2 Allergy status to sulfonamides; Z88.8 Allergy status to other drugs, medicaments and biological substances; Z79.82 Long term (current) use of aspirin; Z86.73 Personal history of transient ischemic attack (TIA), and cerebral infarction without residual deficits; Z79.02 Long term (current) use of antithrombotics/antiplatelets; Z89.421 Acquired absence of other right toe(s); Z79.890 Hormone replacement therapy; Z79.899 Other long term (current) drug therapy; Z89.512 Acquired absence of left leg below knee; Z89.522 Acquired absence of left knee
CPT/HCPCS: 36415; 71045; 78278; 80048; 80053; 80061; 81001; 82607; 82805; 82947; 83540; 83605; 83735; 83930; 84100; 84484; 85014; 85018; 85025; 85044; 85610; 85730; 86850; 86900; 86901; 86920; 87040; 87070; 87077; 87086; 87088; 87186; 87205; 93005; 94640; 99285; A9560; C9113; J0171; J0612; J0696; J1642; J1815; J2001; J2186; J2543; J2704; J2765; J3475; J3480; J7030; J7040; J7050; J7799; P9016; P9047

== ENCOUNTER 2023-07-21 10:22 | Inpatient (IN) | payer BC ==
[2023-07-21 11:00] LABS: Absolute Lymphocytes (CBC) 1.8 K/uL (0.7-4.9); Hematocrit 30.1 % (39.6-49.0); MCV 83.7 fL (80-100); MPV 7.6 fL (7.6-11.3); Platelets 491 thou/uL (152-406); RBC Red Blood Cell Count 3.59 M/uL (4.33-5.43)
[2023-07-21 11:13] LABS: Albumin 1.8 g/dL (3.4-5.0); Bilirubin Total 0.2 mg/dL (0.2-1.0); Potassium 3.7 mEq/L (3.5-5.1); Protein, Total 6.6 g/dL (6.4-8.2)
[2023-07-21 11:13] LABS: SARS-CoV-2 Antigen Rapid Res Negative (Negative)
[2023-07-21 11:14] LABS: Protime INR 1.11
[2023-07-21] MEDS ORDERED: NA CHLORIDE 0.9% 250 ML ONE (11:39)
[2023-07-21] MEDS ORDERED: CEFEPIME 1 GM/VIAL ONE (11:40)
--- NOTE | 2023-07-21 11:47 | RAD REPORT ---
EXAM DESCRIPTION: Cesar Single View07/21/2023 11:06 am CLINICAL HISTORY: Cough COMPARISON: July 13, 2023 FINDINGS: Right base has become more hazy. Left lung appears clear of acute infiltrate. Heart is mildly enlarged. Tracheostomy tube in place IMPRESSION: Right base has become mildly more hazy. This is compatible with a combination of small t o moderate right pleural effusion and right lower lobe atelectasis or pneumonia
[2023-07-21 14:06] LABS: Platelet Estimate INCR; White Blood Cell Scan OK (OK)
[2023-07-21 14:07] LABS: Anisocytosis 1+; Blood Morphology Comment NOTED (NOT SEEN)
--- NOTE | 2023-07-21 14:15 | ER ---
Nurse's Notes [facility] Name: Douglas Carrillo Age: 57 yrs Sex: Male : 1965 Arrival Date: 07/21/2023 Time: 10: Bed 2 Private MD: Diagnosis: Pneumonia, unspecified organism;Hypoxemia Presentation: 07/21 10:20 Chief complaint: EMS states: [facility] called for low sats ko1 and difficulty breathing despite suctioning trach. Coronavirus screen: At this time, the client does not indicate any symptoms associated with coronavirus-19. Ebola Screen: No symptoms or risks identified at this time. Initial Sepsis Screen: Does the patient meet any 2 criteria? No. Patient's initial sepsis screen is negative. Does the patient have a suspected source of infection? No. Patient's initial sepsis screen is negative. Risk Assessment: Do you want to hurt yourself or someone else? Patient reports no desire to harm self or others. Onset of symptoms was July 21, 2023. 10:20 Method Of Arrival: EMS: [facility] ko1 10:20 Acuity: EMMANUEL 2 ko1 Triage Assessment: 10:30 General: Appears in no apparent distress. ill, Behavior is calm, cooperative, ko1 appropriate for age. Pain: Denies pain. Historical: - Allergies: 10:30 Neostigmine Methylsulfate; ko1 11:05 Sulfa (Sulfonamide Antibiotics); ko1 - PMHx: 11:05 CVA; Diabetes - IDDM; Hypertension; GERD; ko1 - PSHx: 11:05 PEG tube; tracheostomy; ko1 - Immunization history:: Adult Immunizations unknown. - Social history:: Smoking status: unknown. - Family history:: not pertinent. - Hospitalizations: : No recent hospitalization is reported. Screenin:45 [facility] ED Fall Risk Assessment (Adult) History of falling in the last 3 months, ko1 including since admission No falls in past 3 months (0 pts) Confusion or Disorientation No (0 pts) Intoxicated or Sedated No (0 pts) Impaired Gait Yes (1 pt) Mobility Assist Device Used Yes (1 pt) Altered Elimination Yes (1 pt) Score/Fall Risk Level 3 or more points = High Risk Oriented to surroundings, Maintained a safe environment, Educated pt \T\ family on fall prevention, incl call for assistance when getting out of bed, Assessed \T\ reinforced patient's understanding of fall precautions, Provided non-skid footwear, Hourly rounding (assess needs \T\ fall precautionary measures) done, Used ambulatory aids as needed (educated on \T\ assisted with), Implemented a Fall Risk Plan of Care, Apply high fall risk patient identification: yellow non skid footwear/ fall signage, Offered frequent toileting (1:1 observation), Utilized family, sitter, or virtual car escort as indicated. Abuse screen: Denies threats or abuse. Denies injuries from another. Nutritional screening: No deficits noted. Tuberculosis screening: No symptoms or risk factors identified. Assessment: 10:45 Neuro: Reports previous stroke. Cardiovascular: No deficits noted. Rhythm is sinus ko1 tachycardia. Respiratory: Airway via trache. GI: PEG tube clamped. Site clean. : Simmons in place to gravity drainage. EENT: No deficits noted. Derm: No deficits noted. Musculoskeletal: Circulation, motion, and sensation intact. 21:05 Reassessment: called to give report; no answer . km8 Vital Signs: 10:20 BP 146 / 76; Pulse 104; Resp 18; Temp 98; Pulse Ox 88% on NRBM at 6l to trach; ko1 10:45 BP 143 / 78; Pulse 97; Resp 16; Pulse Ox 93% on trach 5L; ko1 12:55 BP 146 / 78; Pulse 93; Resp 18; Pulse Ox 93% on 5 lpm trach; ph 19:00 BP 142 / 77; Pulse 90; Resp 12; Pulse Ox 97% on R/A; km8 20:00 BP 134 / 73; Pulse 88; Resp 16; Pulse Ox 98% on R/A; km8 21:00 BP 146 / 79; Pulse 87; Resp 16; Pulse Ox 98% on R/A; km8 ED Course: 10:23 Patient arrived in ED. ko1 10:23 Luzi Blair MD is Attending Physician. rn 10:30 Arm band placed on right wrist. Patient placed in an exam room, on a stretcher, on ko1 oxygen, on gambling monitor, on pulse oximetry. 10:35 Michelle Jiménez, FELIBERTO is Primary Nurse. ko1 10:45 No provider procedures requiring assistance completed. Maintain EMS IV. Dressing ko1 intact. Good blood return noted. Site clean \T\ dry. Gauge \T\ site: 18g R FA. 10:45 Provided Education on: na. ko1 10:47 Flu Sent. ko1 10:47 SARS RAPID Sent. ko1 10:48 CBC with Diff Sent. ko1 10:48 CMP Sent. ko1 10:48 Lactate w/ 2H reflex if indic. Sent. ko1 10:48 Protime (+inr) Sent. ko1 10:48 Ptt, Activated Sent. ko1 11:02 Patient has correct armband on for positive identification. Placed in gown. Bed in low ph position. Call light in reach. Side rails up X2. Client placed on continuous cardiac and pulse oximetry monitoring. NIBP monitoring applied. Door closed. Noise minimized. Warm blanket given. 11:05 Triage completed. ko1 11:06 X-ray completed. Portable x-ray completed in exam room. Patient tolerated procedure mh1 well. 11:08 Chest Single View XRAY In Process Unspecified. EDMS 11:31 Blood Culture Adult (2) Sent. ko1 14:13 Carroll Merino MD is Hospitalizing Provider. rn 21:36 Patient admitted, IV remains in place. km8 Administered Medications: 11:46 Drug: Cefepime IVPB 1 grams IVPB at 200 ml/hr once over 30 mins; (mix in NS 100 mL) ko1 Route: IVPB; Rate: 200 ml/hr; Infused Over: 30 mins; Site: right forearm; 19:00 Follow up: IV Status: Completed infusion km8 Medication: 21:36 VIS not applicable for this client. km8 Outcome: 14:14 Decision to Hospitalize by Provider. rn 21:36 Admitted to Med/surg accompanied by nurse, via stretcher, room 219, with chart, km8 21:36 Condition: stable 21:36 Instructed on the need for admit, Demonstrated understanding of instructions, 21:37 Patient left the ED. km8 Signatures: Dispatcher [employer] EDMS Tamia Olguin [facility] Luiz Blair MD MD rn Hall, Patricia RN RN Michelle Garcia, RN RN koEstefany Garcia RN RN km
--- NOTE | 2023-07-21 14:15 | EDPHYS ---
Physician Documentation [facility] Name: Douglas Carrillo Age: 57 yrs Sex: Male : 1965 Arrival Date: 07/21/2023 Time: 10: Bed 2 Private MD: ED Physician Luiz Blair HPI: 07/21 14:09 This 57 yrs old Male presents to ER via EMS with complaints of sob. rn 14:09 The patient has shortness of breath at rest. Onset: The symptoms/episode began/occurred rn at an unknown time. Duration: The symptoms are continuous. The patient's shortness of breath is aggravated by coughing, is alleviated by nothing. Associated signs and symptoms: Pertinent positives: productive cough, Pertinent negatives: fever, hemoptysis. Severity of symptoms: At their worst the symptoms were moderate in the emergency department the symptoms have improved. The patient has experienced similar episodes in the past. Patient presents with decreased oxygenation, was 89% on 4 L O2. Normally on 4 L is 98%. Recent admission and discharge. Patient reports shortness of breath. No chest pain. No fever.. Historical: - Allergies: 10:30 Neostigmine Methylsulfate; ko1 11:05 Sulfa (Sulfonamide Antibiotics); ko1 - PMHx: 11:05 CVA; Diabetes - IDDM; Hypertension; GERD; ko1 - PSHx: 11:05 PEG tube; tracheostomy; ko1 - Immunization history:: Adult Immunizations unknown. - Social history:: Smoking status: unknown. - Family history:: not pertinent. - Hospitalizations: : No recent hospitalization is reported. ROS: 14:09 Constitutional: Negative for fever, chills, and weight loss, Cardiovascular: Negative rn for chest pain, palpitations, and edema, Respiratory: Positive for cough and shortness of breath Abdomen/GI: Negative for abdominal pain, nausea, vomiting, diarrhea, and constipation, Back: Negative for injury and pain, MS/Extremity: Negative for injury and deformity, Skin: Negative for injury, rash, and discoloration, Neuro: Negative for headache, weakness, numbness, tingling, and seizure, Exam: 14:09 Constitutional: This is a well developed, well nourished patient who is awake, alert, rn and in no acute distress. ENT: Dry mucous membranes, no stridor Neck: Tracheostomy in place, with mucous plug Cardiovascular: Tachycardic, regular Respiratory: Mild tachypnea. Diminished breath sounds right lung base Abdomen/GI: Soft, non-tender, feeding tube in place Neuro: Awake and alert 17:12 ECG was reviewed by the Attending Physician. rn Vital Signs: 10:20 BP 146 / 76; Pulse 104; Resp 18; Temp 98; Pulse Ox 88% on NRBM at 6l to trach; ko1 10:45 BP 143 / 78; Pulse 97; Resp 16; Pulse Ox 93% on trach 5L; ko1 12:55 BP 146 / 78; Pulse 93; Resp 18; Pulse Ox 93% on 5 lpm trach; ph 19:00 BP 142 / 77; Pulse 90; Resp 12; Pulse Ox 97% on R/A; km8 20:00 BP 134 / 73; Pulse 88; Resp 16; Pulse Ox 98% on R/A; km8 21:00 BP 146 / 79; Pulse 87; Resp 16; Pulse Ox 98% on R/A; km8 MDM: 10:24 Patient medically screened. rn 14:09 Differential diagnosis: pneumonia, Pneumothorax pulmonary edema. Data reviewed: vital rn signs, nurses notes, lab test result(s), radiologic studies, plain films, and as a result, I will admit patient. Consideration of Admission/Observation Patient was admitted/placed on observation. Escalation of care including admission/observation considered. Independent interpretation of the following test(s) in the Emergency Department X-Ray: My interpretation is Chest x-ray images show right lower lobe opacification and possible pleural effusion per my interpretation. Historians other than the Patient: EMS: . Counseling: I had a detailed discussion with the patient and/or guardian regarding the historical points, exam findings, and any diagnostic results supporting the discharge/admit diagnosis, lab results, radiology results, the need for further work-up and treatment in the hospital. ED course: Patient with worsening chest x-ray, consistent with possible aspiration pneumonia, decreased oxygenation compared to baseline. Will readmit to hospitalist service. 07/21 10:25 Order name: Blood Culture Adult (2) rn 07/21 10:25 Order name: CBC with Diff; Complete Time: 14:08 rn 07/21 10:25 Order name: CMP; Complete Time: 11:19 rn 07/21 10:25 Order name: Lactate w/ 2H reflex if indic.; Complete Time: 11:17 rn 07/21 10:25 Order name: Protime (+inr); Complete Time: 11:17 rn 07/21 10:25 Order name: Ptt, Activated; Complete Time: 11:17 rn 07/21 10:25 Order name: SARS RAPID; Complete Time: 11:17 rn 07/21 10:25 Order name: Flu; Complete Time: 11:17 rn 07/21 14:07 Order name: CBC Smear Scan; Complete Time: 14:08 EDMS 07/21 15:02 Order name: Basic Metabolic Panel EDMS 07/21 15:02 Order name: Basic Metabolic Panel EDMS 07/21 15:02 Order name: Basic Metabolic Panel EDMS 07/21 15:02 Order name: Basic Metabolic Panel EDMS 07/21 15:02 Order name: CBC with Automated Diff EDMS 07/21 15:02 Order name: CBC with Automated Diff EDMS 07/21 15:02 Order name: CBC with Automated Diff EDMS 07/21 15:02 Order name: CBC with Automated Diff EDMS 07/21 15:02 Order name: NT PRO-BNP EDMS 07/21 15:02 Order name: NT PRO-BNP EDMS 07/21 15:02 Order name: Troponin High Sensitivity EDMS 07/21 15:05 Order name: Urinalysis w/ reflexes EDMS 07/21 10:25 Order name: Chest Single View XRAY; Complete Time: 14:08 rn 07/21 11:39 Order name: RC 02 HUMIDIFIER EDFL 07/21 10:25 Order name: EKG; Complete Time: 10:26 rn 07/21 15:15 Order name: Social Service Consult EDFL 07/21 10:25 Order name: Cardiac monitoring; Complete Time: 10:31 rn 07/21 10:25 Order name: EKG - Nurse/Tech; Complete Time: 10:35 rn 07/21 10:25 Order name: IV Saline Lock - Large Bore; Complete Time: 10:35 rn 07/21 10:25 Order name: Labs collected and sent; Complete Time: 10:47 rn 07/21 10:25 Order name: O2 Per Protocol; Complete Time: 10:31 rn 22 10:25 Order name: O2 Sat Monitoring; Complete Time: 10:31 rn 07/21 10:25 Order name: Vital Signs; Complete Time: 10:35 rn 07/21 10:25 Order name: Suction; Complete Time: 10:35 rn EC:12 Rate is 101 beats/min. Rhythm is regular. QRS [place] is Normal. ND interval is normal. rn QRS interval is normal. QT interval is normal. No Q waves. T waves are Normal. No ST changes noted. Clinical impression: Sinus tachycardia. Interpreted by me. Reviewed by me. Administered Medications: 11:46 Drug: Cefepime IVPB 1 grams IVPB at 200 ml/hr once over 30 mins; (mix in NS 100 mL) ko1 Route: IVPB; Rate: 200 ml/hr; Infused Over: 30 mins; Site: right forearm; 19:00 Follow up: IV Status: Completed infusion km8 Disposition Summary: 07/21/23 14:14 Hospitalization Ordered Notes: Hospitalization Status: Inpatient Admission rn Provider: Carroll Merino [facility] Condition: Stable rn Problem: new rn Symptoms: are unchanged rn Bed/Room Type: Standard rn Room Assignment: 219(07/21/23 17:58) sp Diagnosis - Pneumonia, unspecified organism rn - Hypoxemia rn Forms: - Medication Reconciliation Form rn - SBAR form rn - Leadership Thank You Letter rn Signatures: Dispatcher [employer] Edwina Flowers Roman, MD MD rn Oliver, Kathy, RN RN ko1 Estefany King RN km8 Corrections: (The following items were deleted from the chart) 17:58 14:14 rn sp
[2023-07-21] MEDS ORDERED: IPRATROPIUM BROM 0.5MG/2.5ML NEB PRN (14:54)
[2023-07-21] MEDS ORDERED: ACETAMINOPHEN 500 MG TAB PO PRN (14:54)
[2023-07-21] MEDS ORDERED: MORPHINE 4 MG/ML SYR IV PRN (14:54)
--- NOTE | 2023-07-21 15:10 | P.HP ---
Certification for Inpatient Patient admitted to: Observation With expected LOS: <2 Midnights <Gary Hutchinson - Last Filed: 07/21/23 16:18> Patient History Date of Service: 07/21/23 Reason for admission: Pneumonia, Hypoxemia History of Present Illness: 57-year-old male patient with medical history significant for diabetes type 1, hypertension, hyperlipidemia, renal failure status tracheostomy, peripheral vascular disease, status BKA, hypothyroidism presented to the emergency room with complaining shortness of breath and low oxygen saturation since yesterday. He was recently discharged after hospital stay and when he returned to residential facility he was deemed to be stable for level of care at the facility so he was returned to the hospital. The spouse at bedside reports that he had blockage of the trachesostomy yesterday and the tube was replaced in the detention. Negative for chest pain or discomfort, fever, chills, diarrhea, nausea, vomiting. ED course: Vital Signs: BP 146 / 76; Pulse 104; Resp 18; Temp 98; Pulse Ox 88% on NRBM at 6l to trach. Initial Labs significant for leucocytosis WBC 14.8, anemia hgb 9.8,hct of 30, hyperglycemia Blood glucose of 472. Metabolic panel shows renal impairements. elevated BUN of 58, elevated creatinine 2.63, low GFR of 28. CXR 09/21/2022 shows Right base has become mildly more hazy. This is compatible with a combination of small to moderate right pleural effusion and right lower lobe atelectasis or pneumonia. Admitting the patient with diagnosis of Pneumonia, and Hypoxemia. - Past Medical/Surgical History Diabetic: Yes -: DM I -: CKD stage 4 with Proteinuria (Dr. Edmonds/ Dr. Howard) -: Diastolic CHF -: HTN -: HLD -: CAD/ PAD -: History TIA/CVA -: Anemia -: BPH -: COPD -: Hypothyroidism -: NSTEMI -: Appendectomy -: Left below-knee amputation -: Multiple surgeries to the right lower extremity -: Right foot all toes amputated- february 2019 -: Trach -: PEG Psychosocial/ Personal History: Patient lives at [facility]. - Family History Mother -: Cancer - Social History Smoking Status: Unknown if ever smoked Alcohol use: No CD- Drugs: No Caffeine use: Yes Place of Residence: [facility] <Gary Hutchinson - Last Filed: 07/21/23 16:18> Date of Service: 07/21/23 <Carroll Merino - Last Filed: 07/21/23 17:16> Allergies neostigmine Allergy (Verified 07/08/23 12:39) Itching/Hives/Rash Sulfa (Sulfonamide Antibiotics) Allergy (Verified 05/13/19 16:25) Itching/Hives/Rash Home Medications: Amlodipine [Norvasc*] 1 tab FT DAILY 10/22/22 Atorvastatin Calcium [Lipitor*] 1 tab FT BEDTIME 10/22/22 Budesonide [Pulmicort*] 2 ml IH Q12H 10/22/22 Lactulose [Enulose] 30 ml FT Q6H PRN 10/22/22 Levothyroxine Sodium 1 tab FT DAILY 10/22/22 Ipratropium/Albuterol Sulfate [Iprat-Albut 0.5-3(2.5) mg/3 ml] 3 ml IH Q6HP PRN 12/16/22 carvediloL [Coreg*] 1 tab FT BID 01/25/23 Ipratropium [place] 0.02 % IH Q12HR 06/04/23 Melatonin [Melatonin*] 3 mg FT BEDTIME 06/04/23 Scopolamine Hydrobromide [Transderm-Scop*] 1 pat TD Q3D@0900 pat 06/12/23 Albuterol Neb [Proventil 0.083% Neb Soln] 2.5 mg NEB Q6H PRN 07/09/23 Aspirin 81 mg FT DAILY 07/09/23 Baclofen 1 tab FT TID 07/09/23 Hydroxyzine HCl [Atarax] 1 tab FT Q6H PRN 07/09/23 Na Bicarb Tab [Sodium Bicarb 325 MG Tab*] 650 mg FT DAILY 07/09/23 Ondansetron HCl 1 tab FT Q6H PRN 07/09/23 Pantoprazole [Protonix Tab*] 1 tab FT BID 07/09/23 Polyethylene Glycol 3350 [Miralax] 1 packet FT DAILY 07/09/23 Potassium Chloride 7.5 ml FT DAILY 07/09/23 Sucralfate [Carafate] 10 ml FT QID 07/09/23 Suplena [Suplena Carb Steady*] 237 ml FT Q6H 07/09/23 Ticagrelor [Brilinta*] 1 tab FT BID 07/09/23 Escitalopram [Lexapro*] 10 mg FT DAILY tab 07/11/23 Ferrous Sulfate [Ferrous Sulfate] 7.5 ml FT Q12H 07/11/23 levoFLOXacin [Levaquin*] 750 mg PO DAILY 7 Days #7 tab 07/11/23 Albuterol Neb [Proventil 0.083% Neb Soln] 2.5 mg NEB Q6HP PRN amp 07/17/23 Insulin Glargine,Hum.rec.anlog [Lantus] 5 unit SQ BREAKFAST #10 ml 07/17/23 Vinnie [Vinnie*] 1 pkt PO BID 07/17/23 predniSONE [Deltasone] 20 mg PO DAILY #5 tab 07/17/23 Physical Examination - Physical Exam General: Alert, Oriented x2 HEENT: Atraumatic, Normocephalic Neck: Supple, JVD not distended, Other (with Tracheoastomy in situ.) Respiratory: Clear to auscultation bilaterally, Normal air movement Cardiovascular: No edema, Normal pulses, Normal S1 S2 Capillary refill: <2 Seconds Gastrointestinal: Normal bowel sounds, Soft and benign, Other (Peg tube) Musculoskeletal: No clubbing, No contractures Integumentary: No rashes, No significant lesion Neurological: Normal affect, Other (tacheoastomy, unable to talk) - Studies Laboratory Data (last 24 hrs) 07/21/23 07/21/23 07/21/23 10:42 10:42 10:42 WBC 14.80 H Hgb 9.8 L Hct 30.1 L Plt Count 491 H PT 12.2 INR 1.11 APTT 34.3 Sodium 134 L Potassium 3.7 BUN 58 H Creatinine 2.63 H Glucose 472 H* Total Bilirubin 0.2 AST 16 ALT 19 Alkaline Phosphatase 111 Microbiology Data (last 24 hrs): 07/21/23 10:45 Nasopharnyx Influenza Type A Antigen Screen - Final 07/21/23 10:45 Nasopharnyx Influenza Type B Antigen Screen - Final <Gary Hutchinson - Last Filed: 07/21/23 16:18> - Studies Laboratory Data (last 24 hrs) 07/21/23 07/21/23 07/21/23 10:42 10:42 10:42 WBC 14.80 H Hgb 9.8 L Hct 30.1 L Plt Count 491 H PT 12.2 INR 1.11 APTT 34.3 Sodium 134 L Potassium 3.7 BUN 58 H Creatinine 2.63 H Glucose 472 H* Total Bilirubin 0.2 AST 16 ALT 19 Alkaline Phosphatase 111 Microbiology Data (last 24 hrs): 07/21/23 10:45 Nasopharnyx Influenza Type A Antigen Screen - Final 07/21/23 10:45 Nasopharnyx Influenza Type B Antigen Screen - Final <Carroll Merino - Last Filed: 07/21/23 17:16> Assessment and Plan - Problems (Diagnosis) (1) Tracheostomy status Current Visit: No Status: Chronic (2) COPD (chronic obstructive pulmonary disease) Current Visit: No Status: Chronic Qualifiers: COPD type: COPD with acute lower respiratory infection Qualified Code(s): J44.0 - Chronic obstructive pulmonary disease with (acute) lower respiratory infection (3) Chronic respiratory failure with hypoxia Current Visit: No Status: Chronic (4) Congestive heart failure Current Visit: No Status: Chronic Qualifiers: Heart failure type: diastolic (5) Diastolic CHF Current Visit: No Status: Chronic Qualifiers: Heart failure chronicity: chronic Qualified Code(s): I50.32 - Chronic diastolic (congestive) heart failure (6) Stage II pressure ulcer of sacral region Current Visit: No Status: Chronic (7) Type 1 diabetes mellitus with hyperglycemia, with long-term current use of insulin Current Visit: No Status: Chronic (8) Pneumonia Current Visit: Yes Status: Acute (9) CKD (chronic kidney disease) stage 4, GFR 15-29 ml/min Current Visit: Yes Status: Acute - Plan Plan: Acute on chronic respiratory failure Pneumonia Chronic tracheostomy -Patient came in with shortness of breath in the detention since yesterday -Tracheostomy tube was changed yesterday in the detention as per the spouse -Tracheostomy is dry and intact, patient is breathing normal at this time, SpO2 is 100% on trach collar 4 L/min -Chest x-ray showing right base has become mildly more hazy. This is compatible with a combination of small to moderate right pleural effusion and right lower lobe atelectasis or pneumonia -Titrate oxygen to keep sats greater than 92% -Lactic acid 1.7 -No not in any distress -Will admit the patient in the hospital to monitor closely -IV antibiotics, IV fluid, continue bronchodilators as needed, aggressive pulmonary hygiene -Monitor for leukocytosis and fever -replete electrolytes as needed -Nephrology consult CKD IV -Chronic, worsening BUN 58, crea 2.68, GFR 28 -No NSAIDs -IV hydration , renal dose medication, avoid nephrotoxin,s -Continue ortega HTN with CKD/ CHF diastolic -Continue to monitor vital signs closely -Will reconcile and restart the home medications -Last clinic echo 01/03/2023 showing EF of 54% Type 1 diabetes with hyperglycemia -Chronic uncontrolled, blood sugar level 472 on admission -Will start blood sugar check every 6 hours with a sliding scale of aggressive insulin regular -Will reconcile and restart home medications -Hypoglycemic precautions -Will continue tube feeding -Dietary consultation for diabetic enteral feeding COPD: Chronic, controlled. Bilateral air entry good no wheezing/ no rales Continue to bronchodilators Aggressive pulmonary hygiene Keep the oxygen saturation above 92% CODE STATUS full code Diet tube feeding CODE STATUS full code Discharge Plan: [facility] Plan to discharge in: 24 Hours - Advance Directives Does patient have a Living Will: No Does patient have a Durable POA for Healthcare: No - Code Status/Comfort Care Code Status Assessed: Yes (full code) Code Status: Full Code Physician Review: Patient Assessed, Agree with Above Assessment and Plan Critical Care: No Time Spent Managing Pts Care (In Minutes): 55 (minutes) <Gary Hutchinson - Last Filed: 07/21/23 16:18> - Plan Pt seen and examined. I agree with the note b the EKG MANAGER. Pt is a 57 yo male with acute resp failure s/p tarch placement who presents with hypoxia. Of note, his trach was changed yesterday at the detention. the nurse noticed hypoxia today and they brought him to the Er for evaluation. On admission, CXr shows RLL pna. ER physician called medicine for admission. At bedside, pt is in NAD. He is getting iv rocephin and azithro. A/P Sepsis 2/2 RLL pna; Will continue rocephin, azithro and follow up blood cx. Continue steroid and prn duoneb. trach is in place. Acute COPD : exacerbation; Will continue steroid, duoneb and abx. Acute resp failure: due to pneumonia and COPD. Will continue treatment listed above. DM II: Continue accuchek, SSI and ADAdiet. Diastolic heart failure: BNP is 3000. Will follow up Echo. Last clinic echo 01/03/2023 showing EF of 54%. DVT ppx: SCD <Carroll Merino - Last Filed: 07/21/23 17:16>
[2023-07-21] MEDS: NA CHLORIDE 0.9% 1,000 ML IV SCH ×2 (16:00→22:47)
[2023-07-21] MEDS: INSULIN REGULAR (HUMAN) 100 UNIT/ML SQ SCH ×2 (16:30→22:47)
[2023-07-21] MEDS: HEPARIN 5000 UNIT/ML 1 ML VIAL SQ SCH (17:00)
[2023-07-21 22:21] VITALS: BMI 20.9
[2023-07-21] MEDS: CEFTRIAXONE 1,000 MG in NA CHLORIDE 0.9% 50 ML IVPB SCH (22:48)
[2023-07-21] MEDS ORDERED: D50W 25 GM/50 ML SYRINGE IV PRN (22:59)
[2023-07-21] MEDS ORDERED: GLUCAGON 1 MG/VIAL IM PRN (22:59)
[2023-07-21] MEDS ORDERED: D10W 125 ML IV PRN (23:06)
[2023-07-22] MEDS: HEPARIN 5000 UNIT/ML 1 ML VIAL SQ SCH ×3 (00:15→17:44)
[2023-07-22] MEDS: NA CHLORIDE 0.9% 1,000 ML IV SCH (02:00)
[2023-07-22 03:51] LABS: Absolute Lymphocytes (CBC) 2.2 K/uL (0.7-4.9); Hematocrit 33.8 % (39.6-49.0); Lymphocytes % 16.3 % (15.3-44.8); MCV 83.7 fL (80-100); MPV 7.8 fL (7.6-11.3); Platelets 548 thou/uL (152-406); RBC Red Blood Cell Count 4.04 M/uL (4.33-5.43)
[2023-07-22 04:30] LABS: Potassium 4.2 mEq/L (3.5-5.1)
[2023-07-22] MEDS ORDERED: [UNRECOGNIZED DRUG - OTHER] FT SCH (06:45)
[2023-07-22] MEDS ORDERED: BUDESONIDE 0.5 MG/2 ML NEB IH SCH (07:00)
[2023-07-22] MEDS ORDERED: HYDROXYZINE HCL 10 MG/5 ML SYRUP UD FT SCH (07:28)
[2023-07-22] MEDS ORDERED: LACTULOSE 20 GM/30 ML UCUP FT PRN (07:29)
[2023-07-22] MEDS ORDERED: INSULIN REGULAR (HUMAN) 100 UNIT/ML SQ SCH ×2 (07:30)
[2023-07-22] MEDS ORDERED: ONDANSETRON 4 MG (ODT) TAB FT PRN (07:31)
[2023-07-22] MEDS ORDERED: D50W 25 GM/50 ML SYRINGE IV PRN (07:35)
[2023-07-22] MEDS ORDERED: GLUCAGON 1 MG/VIAL IM PRN (07:35)
[2023-07-22 07:58] LABS: Specific Gravity 1.015 (1.005-1.030); Urine Bacteria <20 /HPF (<20); Urine Bilirubin NEGATIVE (Negative); Urine Blood 1+ (Negative); Urine Clarity Extremely Turbid (Clear); Urine Color Light-Yellow (Yellow); Urine Glucose 4+ (Over) (Negative); Urine Protein 2+ (Negative); Urine RBC 21-50 /HPF (None Seen); Urine Urobilinogen Normal (Normal); Urine WBC Clump Rare /HPF (None Seen)
[2023-07-22] MEDS: INSULIN LISPRO 100 UNIT/ML SQ SCH ×3 (08:00→17:44)
[2023-07-22] MEDS ORDERED: INSULIN GLARGINE 100 UNIT/ML SQ SCH ×2 (08:00→09:00)
[2023-07-22] MEDS: POLYETHYL GLY 3350 17 GM/DOSE FT SCH (08:46)
[2023-07-22] MEDS: CEFTRIAXONE 1,000 MG in NA CHLORIDE 0.9% 50 ML IVPB SCH ×2 (08:47→21:21)
[2023-07-22] MEDS: SUCRALFATE 1GM/10ML UCUP FT SCH ×4 (08:47→21:20)
[2023-07-22] MEDS: BACLOFEN 10 MG TAB FT SCH ×3 (08:50→21:35)
[2023-07-22] MEDS: TICAGRELOR 90 MG TABLET PO SCH ×2 (08:51→21:24)
[2023-07-22] MEDS: ESCITALOPRAM 20 MG TAB FT SCH (08:51)
[2023-07-22] MEDS: carvediloL 6.25 MG TAB FT SCH ×2 (08:51→21:24)
[2023-07-22] MEDS: PANTOPRAZOLE 40MG TABLET PO SCH ×2 (08:51→17:43)
[2023-07-22] MEDS: ASPIRIN 81 MG CHEWABLE TABLET FT SCH (08:51)
[2023-07-22] MEDS: LEVOTHYROXINE SOD 0.025 MG TAB FT SCH (08:51)
[2023-07-22] MEDS: JUVEN PACKET PO SCH ×2 (08:52→21:25)
[2023-07-22] MEDS: INSULIN GLARGINE 100 UNIT/ML SQ SCH (08:52)
[2023-07-22] MEDS ORDERED: AMLODIPINE 10 MG TAB FT SCH (09:00)
[2023-07-22] MEDS ORDERED: AZITHROMYCIN IV 500 MG in NA CHLORIDE 0.9% 250 ML IVPB SCH (09:00)
--- NOTE | 2023-07-22 10:27 | CON ---
History Of Present Illness: The patient seen in room 219. He is alert, awake, able to give some ans wers, but not a good historian. Does not talk in much detail or able to provide a lot of history. H as been in the hospital frequently, seems comfortable. Currently seems to be having some struggle wi th breathing but has had this chronically with tracheostomy. Also has a PEG tube and now gets PEG fe edings. He is awaiting Glucerna to be placed shortly. He was on free water at about 200 cc with Glu pb with his feedings at last admission as well, presents with some shortness of breath. His sugar s are a bit elevated in the 400 range. Currently, he is otherwise looking comfortable. His creatini ne seems to be in the 2 range, has been stable since last check. He is a 57-year-old male with histo ry of diabetes 1, hypertension, hyperlipidemia, has a tracheostomy, peripheral vascular disease, has BKA, hypothyroidism, has difficulty with some oxygenations being low. [facility] and has now presented back in again. The patient's past medical history as stated above. Also with stage 4 kidney disease, sees Dr. Rich sinha and Dr. Vasquez. Past Medical History: As stated above. Family History: Noncontributory. Social History: Lives in jail. No issues with alcohol or drug use. Laboratory Data: Reviewed. Labs show WBC count of 13.4, hemoglobin 10.8, hematocrit 33.8, platelets of 548. Sodium 136, potassium 4.2, chloride 108, bicarb is 23, BUN is 62, creatinine is 2.60. Last BUN and creatinine was 58 and 2.63, O2 sats are 98%. He is using some oxygen with his tracheostomy. 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 At this point, patient seems to be relatively stable, but somewhat short of breath. Does not seem to be very volume deplet ed. Does not seem to be significantly volume overloaded either. At this point, we will stop IV flui ds. Continue with his PEG tube feeds. He can be given Glucerna with free water at about 150 cc. I discussed with the nurses and then we will adjust based on his lab work. We will go ahead and as the patient is currently on antibiotics for possibility of pneumonia, I continue to monitor oxygenation, oxygen supplement to keep O2 sats above 92%. Avoid NSAIDs. Avoid nephrotoxins. Avoid dye use if a t all possible. Management of hyperglycemia with insulin as per primary team. May use Glucerna to k eep impact of glucose from feedings to controlled. The patient has history of question COPD. He is on bronchodilators. May need steroids as well, but would need then further monitoring of his sugars if that was pursued. At this point, his blood pressures are reasonable in the 140 range, but given t he fact that he has pneumonia he is working up with multiple comorbidities. So we will cut amlodipin e to 5 mg and hold for SBP less than 120. Continue with beta winifred. Continue with bronchodilators . Continue with pulmonary care with suctioning and tracheostomy care. Repeat BMP with labs in [facility]. /JOHNSON Voice ID: [id number] Report ID: [id number]
[2023-07-22] MEDS: GLUCERNA 1.2 CAL 1,000 ML BOT FT SCH ×4 (11:48→21:25)
--- NOTE | 2023-07-22 12:28 | P.PN ---
Subjective Date of Service: 07/22/23 Chief Complaint: Pneumonia, Hypoxemia Subjective: No new changes, Improving, Doing well Review of Systems 10-point ROS is otherwise unremarkable Physical Examination - Vital Signs Temperature: 97.1 F Blood Pressure: 153/78 Pulse: 99 Respirations: 18 Pulse Ox (%): 98 - Physical Exam General: Alert, In no apparent distress HEENT: Atraumatic, Normocephalic Neck: Supple, 2+ carotid pulse no bruit Respiratory: Clear to auscultation bilaterally, Normal air movement, Other (Tracheostomy dry and intact) Cardiovascular: No edema, Normal pulses Capillary refill: <2 Seconds Gastrointestinal: Normal bowel sounds, Soft and benign, Other (Peg tube) Neurological: Normal affect, Other (trach- unable to speak) - Studies Laboratory Data (last 24 hrs) 07/21/23 10:42 WBC 14.80 H Hgb 9.8 L Hct 30.1 L Plt Count 491 H Microbiology Data (last 24 hrs): 07/21/23 10:45 Nasopharnyx Influenza Type A Antigen Screen - Final 07/21/23 10:45 Nasopharnyx Influenza Type B Antigen Screen - Final Assessment And Plan - Current Problems (Diagnosis) (1) Tracheostomy status Current Visit: No Status: Chronic (2) COPD (chronic obstructive pulmonary disease) Current Visit: No Status: Chronic Qualifiers: COPD type: COPD with acute lower respiratory infection Qualified Code(s): J44.0 - Chronic obstructive pulmonary disease with (acute) lower respiratory infection (3) Chronic respiratory failure with hypoxia Current Visit: No Status: Chronic (4) Congestive heart failure Current Visit: No Status: Chronic Qualifiers: Heart failure type: diastolic (5) Diastolic CHF Current Visit: No Status: Chronic Qualifiers: Heart failure chronicity: chronic Qualified Code(s): I50.32 - Chronic diastolic (congestive) heart failure (6) Stage II pressure ulcer of sacral region Current Visit: No Status: Chronic (7) Type 1 diabetes mellitus with hyperglycemia, with long-term current use of insulin Current Visit: No Status: Chronic (8) Pneumonia Current Visit: Yes Status: Acute (9) CKD (chronic kidney disease) stage 4, GFR 15-29 ml/min Current Visit: Yes Status: Acute - Plan Plan: Acute on chronic respiratory failure Pneumonia Chronic tracheostomy -Patient came in with [facility]ness of [facility] in the [facility] since [facility] -Tracheostomy tube was changed yesterday in the prison as per the spouse -Tracheostomy is dry and intact, patient is breathing normal at this time, SpO2 is 100% on trach collar 4 L/min -Chest x-ray showing right base has become mildly more hazy. This is compatible with a combination of small to moderate right pleural effusion and right lower lobe atelectasis or pneumonia -Titrate oxygen to keep sats greater than 92% -Lactic acid 1.7 -No not in any distress -Will admit the patient in the hospital to monitor closely -IV antibiotics, IV fluid, continue bronchodilators as needed, aggressive pulmonary hygiene -Monitor for leukocytosis and fever -replete electrolytes as needed -Nephrology consult CKD IV CHronic, GFR 28, bun 62, crea 2.6 -Nephrology following Renal dose medications, avoid nephrotoxins -IV hydration -Continue ortega HTN with CKD/ CHF diastolic -Continue to monitor vital signs closely -Will reconcile and restart the home medications -Last clinic echo 01/03/2023 showing EF of 54% Type 1 diabetes with hyperglycemia -Chronic uncontrolled, blood sugar level 472 on admission -Will start blood sugar check every 6 hours with a sliding scale of aggressive insulin regular -Will reconcile and restart home medications -Hypoglycemic precautions -Will continue tube feeding -Dietary consultation for diabetic enteral feeding COPD: Chronic, controlled. Bilateral air entry good no wheezing/ no rales Continue to bronchodilators Aggressive pulmonary hygiene Keep the oxygen saturation above 92% CODE STATUS full code Diet tube feeding CODE STATUS full code Discharge Plan: Home (residential) Plan to discharge in: 48 Hours - Code Status/Comfort Care Code Status Assessed: Yes (Full code) Code Status: Full Code Physician Review: Patient Assessed, Agree with Above Assessment and Plan Critical Care: No Time Spent Managing PTS Care (In Minutes): 35 (Minutes)
[2023-07-22] MEDS: HYDROXYZINE HCL 10 MG/5 ML SYRUP UD FT SCH ×2 (12:34→17:45)
[2023-07-22] MEDS: ATORVASTATIN 20 MG TAB FT SCH (21:24)
[2023-07-22] MEDS: MELATONIN 3 MG TABLET PO SCH (21:24)
[2023-07-23] MEDS: HEPARIN 5000 UNIT/ML 1 ML VIAL SQ SCH ×3 (00:45→16:07)
[2023-07-23] MEDS: HYDROXYZINE HCL 10 MG/5 ML SYRUP UD FT SCH ×4 (00:45→17:31)
[2023-07-23 03:23] LABS: Hematocrit 31.1 % (39.6-49.0); MCV 82.7 fL (80-100); MPV 7.5 fL (7.6-11.3); Platelets 465 thou/uL (152-406); RBC Red Blood Cell Count 3.76 M/uL (4.33-5.43)
[2023-07-23 03:24] LABS: Absolute Lymphocytes (CBC) 3.7 K/uL (0.7-4.9); Lymphocytes % 24.7 % (15.3-44.8)
[2023-07-23 03:53] LABS: Potassium 3.8 mEq/L (3.5-5.1)
[2023-07-23] MEDS ORDERED: POTASSIUM 25 MEQ EFFERV TAB PO ONE (04:04)
[2023-07-23] MEDS: LEVOTHYROXINE SOD 0.025 MG TAB FT SCH (05:19)
[2023-07-23 05:24] LABS: Anisocytosis 2+; Blood Morphology Comment NOTED (NOT SEEN); Platelet Estimate INCR; Polychromasia SLIGHT; White Blood Cell Scan OK (OK)
[2023-07-23] MEDS ORDERED: VANCOMYCIN 1 GM in NA CHLORIDE 0.9% 250 ML IVPB SCH (07:16)
[2023-07-23] MEDS: PIPER TAZO 3.375 GM in NA CHLORIDE 0.9% 100 ML IV SCH ×2 (08:23→21:00)
[2023-07-23] MEDS: GLUCERNA 1.2 CAL 1,000 ML BOT FT SCH ×5 (08:23→21:00)
[2023-07-23] MEDS: POLYETHYL GLY 3350 17 GM/DOSE FT SCH (08:24)
[2023-07-23] MEDS: carvediloL 6.25 MG TAB FT SCH ×2 (08:25→21:08)
[2023-07-23] MEDS: SUCRALFATE 1GM/10ML UCUP FT SCH ×4 (08:25→21:00)
[2023-07-23] MEDS: ASPIRIN 81 MG CHEWABLE TABLET FT SCH (08:25)
[2023-07-23] MEDS: TICAGRELOR 90 MG TABLET PO SCH ×2 (08:26→21:07)
[2023-07-23] MEDS: AMLODIPINE 5 MG TAB PO SCH (08:26)
[2023-07-23] MEDS: PANTOPRAZOLE 40MG TABLET PO SCH ×2 (08:26→16:07)
[2023-07-23] MEDS: BACLOFEN 10 MG TAB FT SCH ×3 (08:26→21:07)
[2023-07-23] MEDS: ESCITALOPRAM 20 MG TAB FT SCH (08:26)
[2023-07-23] MEDS: INSULIN GLARGINE 100 UNIT/ML SQ SCH (08:28)
[2023-07-23] MEDS: INSULIN LISPRO 100 UNIT/ML SQ SCH ×3 (08:28→16:07)
[2023-07-23] MEDS: JUVEN PACKET PO SCH ×2 (08:29→21:00)
[2023-07-23] MEDS ORDERED: VANCOMYCIN 1.25 GM in NA CHLORIDE 0.9% 250 ML IVPB SCH (09:00)
[2023-07-23] MEDS: VANCOMYCIN 1.5 GM in NA CHLORIDE 0.9% 500 ML IVPB SCH (09:00)
--- NOTE | 2023-07-23 10:08 | PN ---
Subjective: The patient is seen in room 219 at [facility] in [place], [place]. The pa omar is alert, awake, looks comfortable, able to answer some questions with nodding his head, seems to understand, but not able to give much history. Trach seems to be looking comfortable. There is n o irritation around it. Seems like he is breathing comfortably now, O2 sats are close to 100% on mary ann m air. The patient may have had some aspiration when the trach was changed or had some discomfort, b ut seems to have resolved and is doing well now. He is currently on antibiotics, Zosyn and vancomyci n. His WBC counts are still on the higher side, but overall stable. Does not have any fever. Last WBC was 15.2. His hemoglobin is stable. Creatinine seems to have improved. Volume status seems to be close to euvolemic with no edema, and lungs are relatively clear. He does not seem congested in t he upper airways either, seems to be getting adequate suctioning and is able to suction himself as we ll. Objective: Vital Signs: Stable now. Temperature is 97.3. His blood pressure has gone up slightly at 163/79, last before that was 155/82. Pulse is at 79 and the last one was 86. On my examination, pulse is about 80 and regular. Respirations around 14. His O2 sats are 98% on room air. HEENT/Neck: Trach collar is in place. There are no gurgling sounds or heavy secretions. The patien t is able to suction on his own as he is doing currently. Lungs: Sound clear anteriorly. Abdomen: Soft. Extremities: Does not reveal any edema. Heart: Sounds are regular. The patient had some mixed eula on the urine. Influenza A and influenza B were done from nasopharyn x and the final results are negative for both. The patient had culture of his sacral wound as well. No WBC seen. No organism seen. His urine clean catch showed only mixed eula. Assessment And Plan: The patient with respiratory distress, likely secondary to aspiration or possib ility of pneumonia, on antibiotics, currently being monitored by hospitalist team. Clinically seems to have improved. History of chronic kidney disease stage 4. Volume status seems close to euvolemic . At this point, kidney function is close to baseline based on creatinine. We will continue to neptali tor. Gentle IVF as needed, but continue with current feedings and monitoring of breathing status. O nce discharged, will need followup in clinic closely for evaluation and treatment of renal function s tatus and residual kidney damage. /JOHNSON Voice ID: [id number] Report ID: [id number]
[2023-07-23] MEDS: BUDESONIDE 0.25 MG/2 ML NEB IH SCH ×2 (10:52→20:00)
--- NOTE | 2023-07-23 11:58 | P.PN ---
Subjective Date of Service: 07/23/23 Chief Complaint: Pneumonia, Hypoxemia Subjective: No new changes, Improving, Doing well Patient is resting awake Responding appropriately to verbal, Patient with a trach, and PEG No acute distress noted Vital signs stable Patient denies any pain or discomfort <HutchinsonHolgertoby - Last Filed: 07/23/23 11:54> Date of Service: 08/01/23 <JodiharishCarroll tay Alysa - Last Filed: 08/01/23 15:12> Review of Systems 10-point ROS is otherwise unremarkable <HutchinsonHolgertoby - Last Filed: 07/23/23 11:54> Physical Examination - Vital Signs Temperature: 97.3 F Blood Pressure: 163/79 Pulse: 86 Respirations: 16 Pulse Ox (%): 98 - Physical Exam General: Oriented x3 HEENT: Atraumatic, Normocephalic Neck: Supple, 2+ carotid pulse no bruit Respiratory: Clear to auscultation bilaterally, Normal air movement Cardiovascular: No edema, Regular rate/rhythm Capillary refill: <2 Seconds Gastrointestinal: Normal bowel sounds, Soft and benign, Other (PEG tube in situ dry and intact) Musculoskeletal: No clubbing, No swelling Integumentary: No rashes, No breakdown Neurological: Other (Unable to speak, with the tracheostomy) - Studies Microbiology Data (last 24 hrs): 07/21/23 22:00 Wound - Sacral Gram Stain - Final <Gary Hutchinson - Last Filed: 07/23/23 11:54> Assessment And Plan - Current Problems (Diagnosis) (1) Tracheostomy status Status: Chronic (2) COPD (chronic obstructive pulmonary disease) Status: Chronic Qualifiers: COPD type: COPD with acute lower respiratory infection Qualified Code(s): J44.0 - Chronic obstructive pulmonary disease with (acute) lower respiratory infection (3) Chronic respiratory failure with hypoxia Status: Chronic (4) Congestive heart failure Status: Chronic Qualifiers: Heart failure type: diastolic (5) Diastolic CHF Status: Chronic Qualifiers: Heart failure chronicity: chronic Qualified Code(s): I50.32 - Chronic diastolic (congestive) heart failure (6) Stage II pressure ulcer of sacral region Status: Chronic (7) Type 1 diabetes mellitus with hyperglycemia, with long-term current use of insulin Status: Chronic (8) Pneumonia Status: Acute (9) CKD (chronic kidney disease) stage 4, GFR 15-29 ml/min Status: Acute - Plan Plan: Acute on chronic respiratory failure Pneumonia Chronic tracheostomy -Patient came in with shortness of breath in the [facility] -Tracheostomy is dry and intact, patient is breathing normal at this time, SpO2 is 100% on trach collar 4 L/min -Chest x-ray showing right base has become mildly more hazy. This is compatible with a combination of small to moderate right pleural effusion and right lower lobe atelectasis or pneumonia -Titrate oxygen to keep sats greater than 92% -No not in any distress -Will admit the patient in the hospital to monitor closely -IV antibiotics, IV fluid, continue bronchodilators as needed, aggressive pulmonary hygiene -Monitor for leukocytosis and fever -replete electrolytes as needed -Nephrology consult CKD IV CHronic, GFR 28, bun 6 2, crea 2.35 -Nephrology following Renal dose medications, avoid nephrotoxins -IV hydration -Continue ortega HTN with CKD/ CHF diastolic -Continue to monitor vital signs closely -Will reconcile and restart the home medications -Last clinic echo 01/03/2023 showing EF of 54% Type 1 diabetes with hyperglycemia -Chronic improving blood sugar numbers -Will start blood sugar check every 6 hours with a sliding scale of aggressive insulin regular -Will reconcile and restart home medications -Hypoglycemic precautions -Will continue tube feeding -Dietary consultation for diabetic enteral feeding COPD: Chronic, controlled. Bilateral air entry good no wheezing/ no rales Continue to bronchodilators Aggressive pulmonary hygiene Keep the oxygen saturation above 92% CODE STATUS full code Diet tube feeding CODE STATUS full code Discharge Plan: Home Plan to discharge in: 24 Hours - Code Status/Comfort Care Code Status Assessed: Yes (Full code) Code Status: Full Code Physician Review: Patient Assessed, Agree with Above Assessment and Plan Critical Care: No Time Spent Managing PTS Care (In Minutes): 35 (Minutes) <Gary Hutchinson - Last Filed: 07/23/23 11:54> - Plan Pt seen and examined. I agree with the note by the JOURNEYMAN PLUMBER <Carroll Merino - Last Filed: 08/01/23 15:12>
[2023-07-23] MEDS: MELATONIN 3 MG TABLET PO SCH (21:00)
[2023-07-23] MEDS: ATORVASTATIN 20 MG TAB FT SCH (21:07)
[2023-07-24] MEDS: HEPARIN 5000 UNIT/ML 1 ML VIAL SQ SCH ×3 (02:08→17:31)
[2023-07-24 03:57] LABS: Hematocrit 33.7 % (39.6-49.0); Lymphocytes % 11.6 % (15.3-44.8); MCV 83.3 fL (80-100); MPV 7.7 fL (7.6-11.3); Platelets 459 thou/uL (152-406); RBC Red Blood Cell Count 4.04 M/uL (4.33-5.43)
[2023-07-24 04:03] LABS: Potassium 4.1 mEq/L (3.5-5.1)
[2023-07-24] MEDS: HYDROXYZINE HCL 10 MG/5 ML SYRUP UD FT SCH ×4 (05:18→17:32)
[2023-07-24] MEDS: LEVOTHYROXINE SOD 0.025 MG TAB FT SCH (05:19)
[2023-07-24 05:28] LABS: Anisocytosis 1+; Blood Morphology Comment NOTED (NOT SEEN); Platelet Estimate ADEQ
[2023-07-24] MEDS: PANTOPRAZOLE 40MG TABLET PO SCH ×2 (07:30→17:32)
[2023-07-24] MEDS: BACLOFEN 10 MG TAB FT SCH ×3 (07:38→20:19)
[2023-07-24] MEDS: BUDESONIDE 0.25 MG/2 ML NEB IH SCH ×2 (08:00→20:00)
[2023-07-24] MEDS: GLUCERNA 1.2 CAL 1,000 ML BOT FT SCH ×5 (08:00→20:18)
[2023-07-24] MEDS: INSULIN LISPRO 100 UNIT/ML SQ SCH ×3 (08:00→17:32)
[2023-07-24] MEDS: POLYETHYL GLY 3350 17 GM/DOSE FT SCH (09:00)
[2023-07-24] MEDS: AMLODIPINE 5 MG TAB PO SCH (09:00)
[2023-07-24] MEDS: carvediloL 6.25 MG TAB FT SCH ×2 (09:00→20:19)
[2023-07-24] MEDS: JUVEN PACKET PO SCH ×2 (09:00→20:18)
[2023-07-24] MEDS: SUCRALFATE 1GM/10ML UCUP FT SCH ×4 (09:00→20:22)
[2023-07-24] MEDS: ESCITALOPRAM 20 MG TAB FT SCH (09:00)
[2023-07-24] MEDS: ASPIRIN 81 MG CHEWABLE TABLET FT SCH (09:00)
[2023-07-24] MEDS: TICAGRELOR 90 MG TABLET PO SCH ×2 (09:00→20:18)
[2023-07-24] MEDS: INSULIN GLARGINE 100 UNIT/ML SQ SCH (09:00)
--- NOTE | 2023-07-24 09:15 | P.PN ---
Subjective Date of Service: 07/24/23 Chief Complaint: Pneumonia, Hypoxemia Patient is resting awake Responding appropriately to verbal, Patient with a trach, and PEG No acute distress noted Vital signs stable Patient denies any pain or discomfort Physical Exam General: Oriented x3 HEENT: Atraumatic, Normocephalic Neck: Supple, 2+ carotid pulse no bruit Respiratory: Clear to auscultation bilaterally, Normal air movement Cardiovascular: No edema, Regular rate/rhythm Capillary refill: <2 Seconds Gastrointestinal: Normal bowel sounds, Soft and benign, Other (PEG tube in situ dry and intact) Musculoskeletal: No clubbing, No swelling Integumentary: No rashes, No breakdown Neurological: Other (Unable to speak, with the tracheostomy) Physical Examination - Vital Signs Temperature: 97.7 F Blood Pressure: 148/79 Pulse: 93 Respirations: 17 Pulse Ox (%): 93 - Studies Microbiology Data (last 24 hrs): 07/21/23 22:00 Wound - Sacral Gram Stain - Final Assessment And Plan - Plan Assessment plan Acute cystitis Urinalysis is significantly concerning. Though patient has a chronic indwelling Simmons and this can be deemed a confounder. Repeat cultures to be taken. Will adjust antibiotic therapy based on cultures. Acute on chronic kidney injury CKD stage OV BUN 62->54 creatinine2.23 2.32 neph consult Leukocytosis 15.20->17.60 Blood cultures, wound cultures, urine cultures Sputum culture positive for Pseudomonas Urine culture 3+ yeast, greater than 100,000 CFU Wound culture reports she has gram-negative rods Vancomycin, Zosyn Microcytic anemia 11.0 33.7 Trend H&H Permanent tracheostomy complaining shortness of breath and low oxygen saturation since yesterday. He was recently discharged after hospital stay and when he returned to residential facility he was deemed to be stable for level of care at the facility so he was returned to the hospital. The spouse at bedside reports that he had blockage of the trachesostomy yesterday and the tube was replaced in the [place] [facility]. 99% on trach collar on humidified O2 wanted to keep send 1 manage not interested in acute placement back centimeters blood clot Hypoglycemic BS are stable; Type 1 diabetes: Continue statin therapy for glucose control and tube feeds as per nutrition's recommendation. Hypertension: Will continue to monitor vital signs per unit protocol and continue outpatient prescribe antihypertensive medications. Severe peripheral vascular disease Continue statin therapy. Anemia of chronic illness: Will continue to monitor hemoglobin level closely. Will transfuse for hemoglobin less than 7.0. Hypothyroidism: Continue levothyroxine therapy. Prophylaxis: Heparin for DVT prophylaxis. Code status: Full code. Disposition: We will treat his multiple medical issues and he will be discharged once and he is deemed clinically stable. Discharge Plan: Senior Living - Code Status/Comfort Care Code Status: Full Code Physician Review: Patient Assessed, Agree with Above Assessment and Plan Critical Care: No Time Spent Managing PTS Care (In Minutes): 35
[2023-07-24] MEDS: PIPER TAZO 3.375 GM in NA CHLORIDE 0.9% 100 ML IV SCH ×2 (09:34→20:20)
--- NOTE | 2023-07-24 10:36 | RAD REPORT ---
EXAM DESCRIPTION: RAD - ENTEROSTOMY TUBE CHECK W/CONTR - 07/24/2023 6:09 am CLINICAL HISTORY: assess PEG tube COMPARISON: Small Bowel Series dated 07/09/2023; Chest Abd Pelvis Wo Con dated 07/13/2023; Chest Sin gle View dated 07/21/2023 TECHNIQUE: Single AP view of the abdomen. FINDINGS: Hand injected contrast through the PEG tube opacifies the region of the pylorus, duodenum, and proximal jejunum. There may be an element of variant anatomy or malrotation at least most of the proximal jejunum is in the right upper quadrant. No evidence of extraluminal contrast. Nonobstructive bowel gas pattern. No air-fluid levels, free air, or pneumatosis. No suspicious calcif ications. No significant bony abnormality. IMPRESSION: No evidence of extraluminal contrast. Findings as above.
--- NOTE | 2023-07-24 17:41 | PN ---
Date of Progress Note: 07/24/2023 Subjective: Patient was seen and examined at bedside. Denies any complaints. Patient is a very poo r historian. Objective: Vital Signs: Have been reviewed. He is saturating 90% on 5 L on trach collar. General: He appears cachectic, malnourished. Tracheostomy in place, PEG tube in place. Extremities: Showed muscle wasting and cachexia. Laboratory Data: Showing creatinine of 2.32 and BUN of 54. CBC showing a WBC count of 17.6, hemoglo bin 11, hematocrit 33.7, and platelet count 459. Current Medications: Reviewed in detail. Impression: 1.Chronic kidney disease, stage 4. Patient has underlying stage 4 chronic kidney disease with mild acute component, which is overall stable at this time. Renal function has remained stable. We will continue to monitor closely. Avoid further hypotension and nephrotoxins. 2.Chronic respiratory failure with an acute component. Patient is being treated for aspiration pneu monia with Zosyn. Dosage has been adjusted for renal function. Continue pulmonary toilet and aspira tion precautions. 3.Type 2 diabetes. Continue insulin per protocol. 4.Hypertension. Patient remains on amlodipine and carvedilol for blood pressure. Continue the same and avoid hypotension. Plan: Overall, patient's renal function is stable. He is not getting any IV fluids at this time. C ontinue aspiration precautions and continue tube feedings and monitor volume status closely. VV/MODL Voice ID: [id number] Report ID: [id number]
[2023-07-24] MEDS: MELATONIN 3 MG TABLET PO SCH (20:19)
[2023-07-24] MEDS: ATORVASTATIN 20 MG TAB FT SCH (20:20)
[2023-07-24] MEDS ORDERED: ONDANSETRON 4 MG/2 ML VIAL IV PRN (21:28)
[2023-07-24] MEDS: ALBUTEROL 2.5 MG/3 ML NEB SOL NEB PRN (21:40)
[2023-07-24] MEDS: METOCLOPRAMIDE 10 MG/2mL INJ IV SCH (22:17)
[2023-07-25] MEDS: HEPARIN 5000 UNIT/ML 1 ML VIAL SQ SCH ×3 (01:22→17:26)
[2023-07-25] MEDS: METOCLOPRAMIDE 10 MG/2mL INJ IV SCH ×5 (03:07→21:18)
[2023-07-25 03:53] LABS: Absolute Lymphocytes (CBC) 0.6 K/uL (0.7-4.9); Hematocrit 34.5 % (39.6-49.0); Lymphocytes % 2.4 % (15.3-44.8); MCV 85.2 fL (80-100); MPV 8.1 fL (7.6-11.3); Platelets 416 thou/uL (152-406); RBC Red Blood Cell Count 4.05 M/uL (4.33-5.43)
[2023-07-25 03:58] LABS: Potassium 4.3 mEq/L (3.5-5.1)
[2023-07-25 04:43] LABS: Anisocytosis 2+; Blood Morphology Comment NOTED (NOT SEEN); Platelet Estimate ADEQ
[2023-07-25] MEDS: LEVOTHYROXINE SOD 0.025 MG TAB FT SCH (05:31)
[2023-07-25] MEDS: HYDROXYZINE HCL 10 MG/5 ML SYRUP UD FT SCH ×4 (05:31→18:00)
[2023-07-25] MEDS: PANTOPRAZOLE 40MG TABLET PO SCH ×2 (07:30→16:30)
--- NOTE | 2023-07-25 07:40 | P.PN ---
Subjective Date of Service: 07/25/23 Chief Complaint: Pneumonia, Hypoxemia Patient is resting awake Responding appropriately to verbal, Patient with a trach, and PEG No acute distress noted Vital signs stable Patient denies any pain or discomfort Physical Exam General: Oriented x3 HEENT: Atraumatic, Normocephalic Neck: Supple, 2+ carotid pulse no bruit Respiratory: Clear to auscultation bilaterally, Normal air movement Cardiovascular: No edema, Regular rate/rhythm Capillary refill: <2 Seconds Gastrointestinal: Normal bowel sounds, Soft and benign, Other (PEG tube in situ dry and intact) Musculoskeletal: No clubbing, No swelling Integumentary: No rashes, No breakdown Neurological: Other (Unable to speak, with the tracheostomy) Physical Examination - Vital Signs Temperature: 100.2 F Blood Pressure: 116/67 Pulse: 138 Respirations: 18 Pulse Ox (%): 93 - Studies Microbiology Data (last 24 hrs): 07/21/23 22:00 Wound - Sacral Gram Stain - Final Assessment And Plan - Plan Assessment plan sepsis without shock-acute Leukocytosis 15.20->17.60->23.0 (worse today) ID consulted 07/25 (possible aspiration pna) Blood cultures, wound cultures, urine cultures Sputum culture positive for Pseudomonas Urine, wound culture 3+ yeast, micafungin added 07/25 greater than 100,000 CFU Wound culture reports she has gram-negative rods Vancomycin, Zosyn, micafungin added Infectious disease consulted 07/25 wbc elevated worse today 23.20 left shift 91.1 on vancomycin, Zosyn, Acute cystitis Urinalysis is significantly concerning. Though patient has a chronic indwelling Simmons and this can be deemed a confounder. Repeat cultures to be taken. Will adjust antibiotic therapy based on cultures. Acute on chronic kidney injury CKD stage IV BUN 62->54 creatinine2.23 2.32, 07/25 BUN 53, CR 2.60 07/25 500 cc bolus x 1 neph following Microcytic anemia 11.0 33.7 Trend H&H Permanent tracheostomy complaining shortness of breath and low oxygen saturation since yesterday. He was recently discharged after hospital stay and when he returned to residential facility he was deemed to be stable for level of care at the facility so he was returned to the hospital. The spouse at bedside reports that he had blockage of the trachesostomy yesterday and the tube was replaced in the [facility]. 99% on trach collar on humidified O2 wanted to keep send 1 manage not interested in acute placement back centimeters blood clot 07/25 request trach collar changed, order sent to respiratory Hypoglycemic BS are stable; Type 1 diabetes: Continue statin therapy for glucose control and tube feeds as per nutrition's recommendation. Hypertension: Will continue to monitor vital signs per unit protocol and continue outpatient prescribe antihypertensive medications. Severe peripheral vascular disease Continue statin therapy. Anemia of chronic illness: Will continue to monitor hemoglobin level closely. Will transfuse for hemoglobin less than 7.0. Hypothyroidism: Continue levothyroxine therapy. Prophylaxis: Heparin for DVT prophylaxis. Code status: Full code. Disposition: We will treat his multiple medical issues and he will be discharged once and he is deemed clinically stable. Discharge Plan: Longterm Physician Review: Patient Assessed, Agree with Above Assessment and Plan Critical Care: No Time Spent Managing PTS Care (In Minutes): 35
[2023-07-25] MEDS: GLUCERNA 1.2 CAL 1,000 ML BOT FT SCH ×5 (08:00→21:00)
[2023-07-25] MEDS: BUDESONIDE 0.25 MG/2 ML NEB IH SCH ×2 (08:00→20:00)
[2023-07-25] MEDS ORDERED: NA CHLORIDE 0.9% 500 ML IV ONE (08:00)
[2023-07-25] MEDS: ESCITALOPRAM 20 MG TAB FT SCH (09:00)
[2023-07-25] MEDS: ASPIRIN 81 MG CHEWABLE TABLET FT SCH (09:00)
[2023-07-25] MEDS ORDERED: MICAFUNGIN SODIUM 100 MG VIAL IV SCH (09:00)
[2023-07-25] MEDS: POLYETHYL GLY 3350 17 GM/DOSE FT SCH (09:00)
[2023-07-25] MEDS: INSULIN GLARGINE 100 UNIT/ML SQ SCH (09:00)
[2023-07-25] MEDS: AMLODIPINE 5 MG TAB PO SCH (09:00)
[2023-07-25] MEDS: carvediloL 6.25 MG TAB FT SCH ×2 (09:00→21:00)
[2023-07-25] MEDS: SUCRALFATE 1GM/10ML UCUP FT SCH ×4 (09:00→21:00)
[2023-07-25] MEDS: JUVEN PACKET PO SCH ×2 (09:00→21:00)
[2023-07-25] MEDS: BACLOFEN 10 MG TAB FT SCH ×3 (09:00→21:00)
[2023-07-25] MEDS: TICAGRELOR 90 MG TABLET PO SCH ×2 (09:00→21:18)
[2023-07-25] MEDS: SODIUM BICARB 325 MG TAB PO SCH ×2 (10:30→21:00)
[2023-07-25] MEDS: INSULIN LISPRO 100 UNIT/ML SQ SCH ×3 (10:59→17:00)
[2023-07-25] MEDS: PIPER TAZO 3.375 GM in NA CHLORIDE 0.9% 100 ML IV SCH ×2 (10:59→21:00)
[2023-07-25] MEDS ORDERED: NA CHLORIDE 0.9% 1,000 ML IV SCH (11:00)
--- NOTE | 2023-07-25 11:00 | P.PN ---
Nephrology note (S) Pt known to me from prior hospitalizations, stable this AM, on trach collar, denies CP or dyspnea (O) Vitals, medications, blood work and imaging reviewed in the chart. General: Thin, frail, chronically ill appearing, pale HEENT: Atraumatic Neck: Supple. Trach collar Respiratory: b/l air entry, reduced BS at bases Cardiovascular: No edema, Regular rate/rhythm mostly Gastrointestinal: Soft and benign, Non-distended. PEG present, ortega present Musculoskeletal: Muscle mass loss Left BKA Integumentary: No diffuse rashes Blood work reviewed in the chart. Conclusions/Impression: Stage I KATLYN (recurrent) on underlying CKD IV with proteinuria -Frequent KATLYN episodes due to pre-renal azotemia, dehydration/vol depletion, UTI , sepsis, other. Cr level not far from baseline levels, mild fluctuations noted. Note limitations of eGFR calculations also explained, pt does have loss of muscle mass. Metab acidosis, hyperchloremic -D/c NS IVF, start PO Alkali Hypernatremia, freq -Corrected Na higher this AM. D/c NS IVF and place on free water via NGT at 150 cc q4h, titrate as indicated Chronic resp failure -Hx of Pseudomonas/MDR organism growth, management per IM/ID HTN with CKD -Monitor BP. Given his CAD and DM, target BP < 130/80 Recurrent lower urinary tract infectious disease, in the setting of indwelling bladder catheter -Abx/anti-fungals per IM, dose for reduced CrCl, cont ortega care, exchange every 30 days Amrit Howard MD, EMMA
[2023-07-25] MEDS: MICAFUNGIN SODIUM 100 MG in NA CHLORIDE 0.9% 100 ML IV SCH (11:35)
[2023-07-25] MEDS ORDERED: INSULIN GLARGINE 100 UNIT/ML SQ ONE (16:00)
--- NOTE | 2023-07-25 16:01 | P.CNS ---
Date of Consult: 07/25/23 Reason for Consult: leukocytosis, fever Chief Complaint: Pneumonia, Hypoxemia History of Present Illness: Patient is a 57-year-old male with medical history significant for diabetes type 1, hypertension, hyperlipidemia, CKD, hypothyroidism, CVA s/p trach and PEG dependent who presented to the ED from assisted with complaints of shortness of breath and low oxygen saturation. Of note, patient has been hospitalized multiple times in the past year and has a history of multi-drug resistant infections. He was admitted for pneumonia and urinary tract infection. Infectious disease was consulted. Allergies neostigmine Allergy (Verified 07/21/23 22:21) Itching/Hives/Rash Sulfa (Sulfonamide Antibiotics) Allergy (Verified 07/21/23 22:21) Itching/Hives/Rash Home medications list reviewed: Yes Home Medications: Amlodipine [Norvasc*] 1 tab FT DAILY 10/22/22 Atorvastatin Calcium [Lipitor*] 1 tab FT BEDTIME 10/22/22 Budesonide [Pulmicort*] 2 ml IH Q12H 10/22/22 Lactulose [Enulose] 30 ml FT Q6H PRN 10/22/22 Levothyroxine Sodium 1 tab FT DAILY 10/22/22 Ipratropium/Albuterol Sulfate [Iprat-Albut 0.5-3(2.5) mg/3 ml] 3 ml IH Q6HP PRN 12/16/22 carvediloL [Coreg*] 1 tab FT BID 01/25/23 Ipratropium [place] 0.02 % IH Q12HR 06/04/23 Melatonin [Melatonin*] 3 mg FT BEDTIME 06/04/23 Scopolamine Hydrobromide [Transderm-Scop*] 1 pat TD Q3D@0900 pat 06/12/23 Albuterol Neb [Proventil 0.083% Neb Soln] 2.5 mg NEB Q6H PRN 07/09/23 Aspirin 81 mg FT DAILY 07/09/23 Baclofen 1 tab FT TID 07/09/23 Hydroxyzine HCl [Atarax] 1 tab FT Q6H PRN 07/09/23 Na Bicarb Tab [Sodium Bicarb 325 MG Tab*] 650 mg FT DAILY 07/09/23 Ondansetron HCl 1 tab FT Q6H PRN 07/09/23 Pantoprazole [Protonix Tab*] 1 tab FT BID 07/09/23 Polyethylene Glycol 3350 [Miralax] 1 packet FT DAILY 07/09/23 Potassium Chloride 7.5 ml FT DAILY 07/09/23 Sucralfate [Carafate] 10 ml FT QID 07/09/23 Suplena [Suplena Carb Steady*] 237 ml FT Q6H 07/09/23 Ticagrelor [Brilinta*] 1 tab FT BID 07/09/23 Escitalopram [Lexapro*] 10 mg FT DAILY tab 07/11/23 Ferrous Sulfate [Ferrous Sulfate] 7.5 ml FT Q12H 07/11/23 levoFLOXacin [Levaquin*] 750 mg PO DAILY 7 Days #7 tab 07/11/23 Albuterol Neb [Proventil 0.083% Neb Soln] 2.5 mg NEB Q6HP PRN amp 07/17/23 Insulin Glargine,Hum.rec.anlog [Lantus] 5 unit SQ BREAKFAST #10 ml 07/17/23 Vinnie [Vinnie*] 1 pkt PO BID 07/17/23 predniSONE [Deltasone] 20 mg PO DAILY #5 tab 07/17/23 - Past Medical/Surgical History Diabetic: Yes -: DM I -: CKD stage 4 with Proteinuria (Dr. Edmonds/ Dr. Howard) -: Diastolic CHF -: HTN -: HLD -: CAD/ PAD -: History TIA/CVA -: Anemia -: BPH -: COPD -: Hypothyroidism -: NSTEMI -: Appendectomy -: Left below-knee amputation -: Multiple surgeries to the right lower extremity -: Right foot all toes amputated- february 2019 -: Trach -: PEG Psychosocial/ Personal History: Patient lives at [facility]. - Family History Mother Medical History: Cancer - Social History Smoking Status: Unknown if ever smoked Alcohol use: No CD- Drugs: No Caffeine use: Yes Place of Residence: [facility] Review of Systems 10-point ROS is otherwise unremarkable General: Weakness Physical Examination Temp Pulse Resp BP Pulse Ox 100.2 F 138 H 18 116/67 93 07/25/23 15:12 07/25/23 15:12 07/25/23 15:12 07/25/23 15:12 07/25/23 15:12 General: In no apparent distress HEENT: Atraumatic Neck: Other (tracheostomy) Respiratory: Diminished, Other (trach) Cardiovascular: No edema, Regular rate/rhythm Gastrointestinal: Normal bowel sounds, Soft and benign, Other (PEG tube) Musculoskeletal: Other (left BKA) Integumentary: Pressure ulcer (sacrum stage II) Neurological: Abnormal speech, Abnormal strength Urinary: Simmons catheter Laboratory Data - Reviewed Microbiology Data - Reviewed Imagings Data: - Reviewed Conclusions/Impression: Problem List Sepsis secondary to complicated urinary tract infection vs aspiration pneumonia Acute on Chronic CKD Microcytis anemia Diabetes Mellitus type I Hypertension Hypothyroidism History CVA History of MDR Infections Sepsis secondary to CAUTI / Aspiration Pneumonia - Blood cultures 06/21: No growth to date - Negative Influenze A&B - Wound culture 06/21: 3+ yeast and 1+ gram negative rods - Urine culture 07/22: 3+ yeast - Leukocytosis (WBC 17.6 -> 23.2) - 24hour Tmax 100.9F Recommendations - yeast in urine and wound culture, continue Micafungin IV for 14 days (07/25/23 to 08/08/23) - Fever curve trending up, 24 tmax 100.7 F. Blood cultures ordered, pending. Follow up with results. Chest XR ordered, pending. - Pressure offloading measures: turn patient q2h, wedge pillows, low air-loss mattress. Sacral wound care per wound care team. - Trach care. Simmons catheter care. - Continue to monitor WBC and fever trends. - CKD: Renally dose medications. Nephrology on case. - Strict blood glucose control Case discussed with Flavio Merrill
--- NOTE | 2023-07-25 20:15 | RAD REPORT ---
EXAM DESCRIPTION: RAD - Chest Single View - 07/25/2023 7:54 pm CLINICAL HISTORY: pneumonia COMPARISON: Chest Single View dated 07/21/2023; Chest Single View dated 07/12/2023; Chest Single Vie w dated 07/08/2023; Chest Single View dated 06/03/2023; Chest Abd Pelvis Wo Con dated 07/13/2023 FINDINGS: Lines: Tracheostomy. Lungs: Confluent airspace disease in the left mid lung. Pleural: No significant pleural effusions or pneumothorax. Cardiac: The heart size is within normal limits. Mediastinum: Within normal limits. Bones: No acute fractures. Other: None IMPRESSION: Worsened aeration in the left lung compared with 07/01/2023 concerning for worst pneumon ia or pneumonitis. Mild right basilar airspace disease is similar.
[2023-07-25] MEDS: ATORVASTATIN 20 MG TAB FT SCH (21:00)
[2023-07-25] MEDS: MELATONIN 3 MG TABLET PO SCH (21:00)
[2023-07-26] MEDS: HEPARIN 5000 UNIT/ML 1 ML VIAL SQ SCH ×3 (00:34→17:04)
[2023-07-26] MEDS: METOCLOPRAMIDE 10 MG/2mL INJ IV SCH ×4 (04:08→23:26)
[2023-07-26] MEDS: HYDROXYZINE HCL 10 MG/5 ML SYRUP UD FT SCH ×2 (06:00)
[2023-07-26] MEDS: LEVOTHYROXINE SOD 0.025 MG TAB FT SCH (06:30)
[2023-07-26] MEDS: PANTOPRAZOLE 40MG TABLET PO SCH ×2 (07:30→16:30)
[2023-07-26] MEDS: GLUCERNA 1.2 CAL 1,000 ML BOT FT SCH ×4 (08:00→18:00)
[2023-07-26] MEDS: INSULIN LISPRO 100 UNIT/ML SQ SCH (08:00)
[2023-07-26] MEDS ORDERED: GLUCAGON 1 MG/VIAL IM PRN ×2 (08:02→08:36)
[2023-07-26] MEDS ORDERED: D50W 25 GM/50 ML SYRINGE IV PRN ×2 (08:02→08:36)
--- NOTE | 2023-07-26 08:09 | P.PN ---
Subjective Date of Service: 07/26/23 Chief Complaint: Pneumonia, Hypoxemia Patient is resting awake, remains febrile, ID consulted, Responding appropriately to verbal, Patient with a trach, and PEG, Vital signs stable Physical Exam General: Oriented x3 HEENT: Atraumatic, Normocephalic Neck: Supple, 2+ carotid pulse no bruit Respiratory: trach/trach collar, moderate amount secretions, uses yanker, Normal air movement Cardiovascular: No edema, Regular rate/rhythm Capillary refill: <2 Seconds Gastrointestinal: Normal bowel sounds, Soft and benign, Other (PEG tube in situ dry and intact) Musculoskeletal: Other (left BKA) Integumentary: No rashes, No breakdown Neurological: Other (Unable to speak, with the tracheostomy) <Saige Daniel - Last Filed: 07/26/23 13:22> Date of Service: 07/27/23 <Sangeeta Berg - Last Filed: 07/27/23 05:14> Review of Systems per HPI <Saige Daniel - Last Filed: 07/26/23 13:22> Physical Examination - Vital Signs Temperature: 97.7 F Blood Pressure: 161/76 Pulse: 96 Respirations: 17 Pulse Ox (%): 97 - Studies Microbiology Data (last 24 hrs): 07/21/23 22:00 Wound - Sacral Gram Stain - Final 07/21/23 22:00 Wound - Sacral Culture & Sensitivity - Final Morganella Morganii Klebsiella Oxytoca 07/22/23 07:05 Clean Catch Urine [place] Count - Final >100,000 CFU/ML. 07/22/23 07:05 Clean Catch Urine - Final <Saige Daniel - Last Filed: 07/26/23 13:22> - Studies Microbiology Data (last 24 hrs): 07/21/23 11:35 Blood - Blood Aerobic Blood Culture - Final No growth in 5 days. 07/21/23 11:35 Blood - Blood Anaerobic Blood Culture - Final No growth in 5 days. 07/21/23 11:15 Blood - Blood Aerobic Blood Culture - Final No growth in 5 days. 07/21/23 11:15 Blood - Blood Anaerobic Blood Culture - Final No growth in 5 days. 07/21/23 22:00 Wound - Sacral Gram Stain - Final 07/21/23 22:00 Wound - Sacral Culture & Sensitivity - Final Morganella Morganii Klebsiella Oxytoca 07/22/23 07:05 Clean Catch Urine [place] Count - Final >100,000 CFU/ML. 07/22/23 07:05 Clean Catch Urine - Final <Sangeeta Berg - Last Filed: 07/27/23 05:14> Assessment And Plan - Plan Assessment plan sepsis without shock-acute Leukocytosis 15.20->17.60->23.0 (worse today) ID consulted 07/25 (presumptive possible aspiration pna) Blood cultures, wound cultures, urine cultures Sputum culture positive for Pseudomonas Urine, wound culture 3+ yeast, micafungin added 07/25 greater than 100,000 CFU Wound culture reports she has gram-negative rods Vancomycin, Zosyn, 07/25 Infectious disease consulted wbc elevated worse today 23.20 left shift 91.1 07/25 ID recommends x 14 days micafungin +yeast culture wound, urine 07/26 meropenem 500 twice daily added Acute cystitis Urinalysis is significantly concerning. Though patient has a chronic indwelling Simmons and this can be deemed a confounder. Repeat cultures to be taken. Will adjust antibiotic therapy based on cultures. Acute on chronic kidney injury CKD stage IV BUN 62->54 creatinine2.23 2.32, 07/25 BUN 53, CR 2.60 07/25 500 cc bolus x 1 neph following Microcytic anemia 11.0 33.7 Trend H&H Permanent tracheostomy complaining shortness of breath and low oxygen saturation since yesterday. He was recently discharged after hospital stay and when he returned to residential facility he was deemed to be stable for level of care at the facility so he was returned to the hospital. The spouse at bedside reports that he had blockage of the trachesostomy yesterday and the tube was replaced in the group home. 99% on trach collar on humidified O2 wanted to keep send 1 manage not interested in acute placement back centimeters blood clot 07/25 request trach collar changed, order sent to respiratory Permanent G-tube placement Tube feedings Hypoglycemic BS are stable; Type 1 diabetes: Continue statin therapy for glucose control and tube feeds as per nutrition's re commendation. Hypertension: Will continue to monitor vital signs per unit protocol and continue outpatient prescribe antihypertensive medications. Severe peripheral vascular disease Continue statin therapy. Anemia of chronic illness: Will continue to monitor hemoglobin level closely. Will transfuse for hemoglobin less than 7.0. Hypothyroidism: Continue levothyroxine therapy. Prophylaxis: Heparin for DVT prophylaxis. Code status: Full code. Disposition: We will treat his multiple medical issues and he will be discharged once and he is deemed clinically stable. Discharge Plan: Assisted - Code Status/Comfort Care Code Status: Full Code Physician Review: Patient Assessed, Agree with Above Assessment and Plan Critical Care: No Time Spent Managing PTS Care (In Minutes): 35 <Saige Daniel - Last Filed: 07/26/23 13:22> Date of Service: 07/26/23 Agree with plan as mentioned above. Patient seen examined. Family at bedside. Long conversation with the family and patient was able to nod yes and no to answers. Patient does not want to be connected to the ventilator if his condition worsens he wants to go and be made comfortable. At this time, they do want a proceed with treatment, but patient does not want CPR, chest compression, mechanical ventilation. Family is agreeable to vasopressors as needed. Patient had an episode of nausea and vomiting and ended up aspirating once again. Patient has significant left lower lobe pneumonia. Patient was more hypoxic. Patient's antibiotic coverage was broadened. Continue with nebs, antibiotics, and O2 per protocol. Patient has been febrile and tachycardic. Holding tube fe eds as patient has been aspirating with his tube feeds. Will reassess this once patient's clinical condition has improved. Continue with gentle hydration at this time. Repeat chest x-ray and labs in the morning and pulmonary consultation. May need to do CT imaging if patient is stable later today. Will transfer to ICU for closer monitoring. <Sangeeta Berg - Last Filed: 07/27/23 05:14>
[2023-07-26] MEDS: ALBUTEROL 2.5 MG/3 ML NEB SOL NEB PRN (08:24)
[2023-07-26] MEDS: BUDESONIDE 0.25 MG/2 ML NEB IH SCH ×2 (08:25→19:53)
[2023-07-26] MEDS ORDERED: INSULIN 70/30 100 UNITS/ML SQ ONE (08:45)
[2023-07-26] MEDS: MICAFUNGIN SODIUM 100 MG in NA CHLORIDE 0.9% 100 ML IV SCH (08:59)
[2023-07-26] MEDS: PIPER TAZO 3.375 GM in NA CHLORIDE 0.9% 100 ML IV SCH (09:00)
[2023-07-26] MEDS: VANCOMYCIN 1.5 GM in NA CHLORIDE 0.9% 500 ML IVPB SCH ×3 (09:00→11:04)
[2023-07-26] MEDS: INSULIN GLARGINE 100 UNIT/ML SQ SCH (09:00)
[2023-07-26] MEDS: carvediloL 6.25 MG TAB FT SCH (09:00)
[2023-07-26] MEDS: ESCITALOPRAM 20 MG TAB FT SCH (09:00)
[2023-07-26] MEDS: JUVEN PACKET PO SCH (09:00)
[2023-07-26] MEDS: ASPIRIN 81 MG CHEWABLE TABLET FT SCH (09:00)
[2023-07-26] MEDS: POLYETHYL GLY 3350 17 GM/DOSE FT SCH (09:00)
[2023-07-26] MEDS ORDERED: Mupirocin NASAL 2 APPL/1 GM TUBE NAS SCH (09:00)
[2023-07-26] MEDS: BACLOFEN 10 MG TAB FT SCH ×2 (09:00→14:00)
[2023-07-26] MEDS: AMLODIPINE 5 MG TAB PO SCH (09:00)
[2023-07-26] MEDS: TICAGRELOR 90 MG TABLET PO SCH (09:00)
[2023-07-26] MEDS: SODIUM BICARB 325 MG TAB PO SCH (09:00)
[2023-07-26] MEDS: SUCRALFATE 1GM/10ML UCUP FT SCH ×3 (09:00→17:00)
[2023-07-26] MEDS ORDERED: ACETAMINOPHEN 500 MG TAB FT ONE (09:38)
--- NOTE | 2023-07-26 09:47 | RAD REPORT ---
EXAM DESCRIPTION: RADChest Single View07/26/2023 9:06 am CLINICAL HISTORY: Pneumonia, evaluate improvement COMPARISON: Chest Single View dated 07/25/2023; Chest Single View dated 07/21/2023; Chest Single Vie w dated 07/12/2023; Chest Single View dated 07/08/2023 TECHNIQUE: Portable AP view of the chest. FINDINGS: Tracheostomy tube in place. Persistent patchy opacities throughout the left lung. Stable r ight basilar atelectasis. No pneumothorax or effusion. The cardiomediastinal contours are unremarkab le. IMPRESSION: Persistent patchy left airspace opacities concerning for pneumonia.
[2023-07-26] MEDS ORDERED: HYDROXYZINE HCL 10 MG/5 ML SYRUP UD FT PRN (09:54)
--- NOTE | 2023-07-26 09:57 | P.PN ---
Date of Service: 07/26/23 Chief Complaint: Pneumonia, Hypoxemia Subjective: Patient lethargic, ill appearing. Mother at bedside. No acute events overnight. Physical Examination Temp Pulse Resp BP Pulse Ox 97.7 F 96 H 17 161/76 H 97 07/26/23 08:14 07/26/23 08:14 07/26/23 08:14 07/26/23 08:14 07/26/23 08:14 General: In no apparent distress. Pale, lethargic. HEENT: Atraumatic. normocephalic. Respiratory: Diminished. Trach, on t-collar Cardiovascular: No edema, Regular rate/rhythm Gastrointestinal: Normal bowel sounds, Soft and benign. PEG tube. Musculoskeletal: Left BKA. Integumentary: Pressure ulcer sacrum stage II Neurological: Abnormal speech, Abnormal strength Urinary: Simmons catheter (chronic) Laboratory Data - Reviewed Microbiology Data - Reviewed Imagings Data: - Reviewed Medication List: Reviewed Assessment and Plan Problem List Sepsis secondary to complicated urinary tract infection vs pneumonia Acute on Chronic CKD Microcytis anemia Diabetes Mellitus type I Hypertension Hypothyroidism History CVA History of MDR Infections Sepsis secondary to CAUTI / sacral ulcer infection / pneumonia - Blood cultures 06/21: No growth to date - Negative Influenze A&B. Negative covid. - Wound culture 06/21: Morganella morganii and Klebsiella oxytoca - Multidrug resistant - Urine culture 07/22: presumptive Jeanne albicans - Due to temperature spike, repeat blood cultures drawn 07/25. Pending results. - XR Chest 07/26: " Persistent patchy left airspace opacities concerning for pneumonia" - On Zosyn Leukocytosis 24 hour Tmax 100.7 F Recommendations - presumtive Jeanne albicans in urine: Continue Micafungin IV for 14 days (07/25/23 to 08/08/23) - Patient not improving on zosyn, will switch to meropenem. Continue for 5-7 days. Discontinue vancomycin. - Follow up with blood culture results. - Pressure offloading measures: turn patient q2h, wedge pillows, low air-loss mattress. Sacral wound care per wound care team. - Trach care. Simmons catheter care. - Continue to monitor WBC and fever trends. - CKD: Renally dose medications. Nephrology on case. - Strict blood glucose control Case discussed with Flavio Merrill
[2023-07-26 11:23] LABS: Absolute Lymphocytes (CBC) 0.4 K/uL (0.7-4.9); Hematocrit 28.7 % (39.6-49.0); Lymphocytes % 1.8 % (15.3-44.8); MCV 84.8 fL (80-100); MPV 7.8 fL (7.6-11.3); Platelets 369 thou/uL (152-406); RBC Red Blood Cell Count 3.39 M/uL (4.33-5.43)
[2023-07-26] MEDS: INSULIN REGULAR (HUMAN) 100 UNIT/ML IV SCH ×3 (11:30→21:00)
[2023-07-26 11:33] LABS: Magnesium 2.2 mg/dL (1.6-2.4); Potassium 4.1 mEq/L (3.5-5.1)
--- NOTE | 2023-07-26 11:45 | P.PN ---
Nephrology note (S) Pt has been febrile this AM, tachy, mildly tachypnec, WBC had risen yesterday, labs pending this AM. Case discussed with family member at bedside. (O) Vitals, medications, blood work and imaging reviewed in the chart. General: Thin, frail, chronically ill appearing, pale HEENT: Atraumatic Neck: Supple. Trach collar Respiratory: b/l air entry, reduced BS at bases, mildly tachypnec Cardiovascular: No edema, Regular rate/rhythm mostly Gastrointestinal: Soft and benign, Non-distended. PEG present, ortega present Musculoskeletal: Muscle mass loss Left BKA Integumentary: No diffuse rashes Blood work reviewed in the chart. Conclusions/Impression: Stage I KATLYN (recurrent) on underlying CKD IV with proteinuria -Frequent KATLYN episodes due to pre-renal azotemia, dehydration/vol depletion, UTI, sepsis, other. Cr levels currently not far from baseline levels, mild fluctuations noted. Note limitations of eGFR calculations also explained, pt does have loss of muscle mass. Metab acidosis, hyperchloremic -D/c'ed NS IVF, started PO Alkali Hypernatremia, freq -Corrected Na higher yesterday AM. D/c'ed NS IVF and place on free water via NGT at 150 cc q4h, titrate as indicated Chronic resp failure -Hx of Pseudomonas/MDR organism growth, management per IM/ID Fevers unspecified. SIRs without signs of septic shock -Bolus crystalloids/colloids if needed, review Abx regimen with ID in the setting of MDR organism, recommend switching Zosyn to Meropenem HTN with CKD -Given his CAD and DM, target BP < 130/80 but in light of above may hold his BP meds if BP trends lower Recurrent lower urinary tract infectious disease, in the setting of indwelling bladder catheter -Abx/anti-fungals per IM, dose for reduced CrCl, cont ortega care, exchange every 30 days Amrit Howard MD, EMMA
[2023-07-26 12:08] LABS: Anisocytosis 1+; Blood Morphology Comment NOTED (NOT SEEN); Platelet Estimate ADEQ; Polychromasia SLIGHT; White Blood Cell Scan OK (OK)
[2023-07-26] MEDS: Meropenem 500 MG in NA CHLORIDE 0.9% 100 ML IV SCH (14:21)
[2023-07-26] MEDS: MORPHINE 2 MG/ML SYR IV PRN (17:03)
[2023-07-26 20:18] VITALS: O2SAT 94
[2023-07-26] MEDS ORDERED: LACTOBACILLUS/ACIDOPHILUS TAB PO SCH (21:00)
[2023-07-26] MEDS: ZINC OXIDE 20% OINTMENT 60gm TOP SCH (21:00)
[2023-07-26] MEDS ORDERED: METOPROLOL TARTRATE 5 MG/5 ML INJ IV ONE ×4 (22:10→22:55)
[2023-07-26] MEDS ORDERED: NA CHLORIDE 0.9% 1,000 ML ONE (22:30)
[2023-07-26] MEDS: Mupirocin NASAL 2 APPL/1 GM TUBE NAS SCH (23:00)
[2023-07-26] MEDS ORDERED: NA CHLORIDE 0.9% 1,000 ML IV SCH (23:00)
[2023-07-26] MEDS ORDERED: MUPIROCIN 2% OINT 22GM TUBE TOP ONE (23:15)
[2023-07-26] MEDS ORDERED: METOCLOPRAMIDE 10 MG/2mL INJ ONE (23:16)
[2023-07-27] MEDS ORDERED: HEPARIN 5000 UNIT/ML 1 ML VIAL ONE ×3 (00:27→17:01)
[2023-07-27] MEDS: HEPARIN 5000 UNIT/ML 1 ML VIAL SQ SCH ×3 (00:28→17:04)
[2023-07-27] MEDS: Meropenem 500 MG in NA CHLORIDE 0.9% 100 ML IV SCH (02:55)
[2023-07-27] MEDS ORDERED: Meropenem 500 MG VIAL IV ONE ×2 (03:11→13:19)
[2023-07-27] MEDS ORDERED: NA CHLORIDE 0.9% 100 ML ONE ×2 (03:11→13:19)
[2023-07-27] MEDS ORDERED: METOCLOPRAMIDE 10 MG/2mL INJ ONE ×3 (03:22→17:01)
[2023-07-27] MEDS ORDERED: ASPIRIN 300 MG/SUPP PR ONE (04:28)
[2023-07-27 04:34] LABS: Absolute Lymphocytes (CBC) 0.7 K/uL (0.7-4.9); Hematocrit 32.2 % (39.6-49.0); Lymphocytes % 3.5 % (15.3-44.8); MCV 85.3 fL (80-100); MPV 7.9 fL (7.6-11.3); Platelets 377 thou/uL (152-406); RBC Red Blood Cell Count 3.77 M/uL (4.33-5.43)
[2023-07-27] MEDS: METOCLOPRAMIDE 10 MG/2mL INJ IV SCH ×3 (04:46→17:04)
[2023-07-27 05:01] LABS: Magnesium 2.3 mg/dL (1.6-2.4)
[2023-07-27 05:05] LABS: Potassium 4.8 mEq/L (3.5-5.1)
--- NOTE | 2023-07-27 05:15 | P.PN ---
Date of Service: 07/26/23 Agree with plan as mentioned above. Patient seen examined. Family at bedside. Long conversation with the family and patient was able to nod yes and no to answers. Patient does not want to be connected to the ventilator if his condition worsens he wants to go and be made comfortable. At this time, they do want a proceed with treatment, but patient does not want CPR, chest compression, mechanical ventilation. Family is agreeable to vasopressors as needed. Patient had an episode of nausea and vomiting and ended up aspirating once again. Patient has significant left lower lobe pneumonia. Patient was more hypoxic. Patient's antibiotic coverage was broadened. Continue with nebs, antibiotics, and O2 per protocol. Patient has been febrile and tachycardic. Holding tube feeds as patient has been aspirating with his tube feeds. Will reassess this once patient's clinical condition has improved. Continue with gentle hydration at this time. Repeat chest x-ray and labs in the morning and pulmonary consultation. May need to do CT imaging if patient is stable later today. Will transfer to ICU for closer monitoring.
[2023-07-27] MEDS ORDERED: ALBUTEROL 2.5 MG/3 ML NEB SOL ONE (07:14)
[2023-07-27] MEDS: ALBUTEROL 2.5 MG/3 ML NEB SOL NEB PRN (07:19)
[2023-07-27] MEDS ORDERED: LORazepam 2 MG/ML VIAL IV PRN (07:39)
[2023-07-27] MEDS ORDERED: INSULIN GLARGINE 100 UNIT/ML SQ ONE (07:56)
[2023-07-27] MEDS ORDERED: INSULIN REGULAR (HUMAN) 100 UNIT/ML ONE ×3 (07:57→17:00)
[2023-07-27] MEDS: BUDESONIDE 0.25 MG/2 ML NEB IH SCH (08:00)
[2023-07-27] MEDS: INSULIN GLARGINE 100 UNIT/ML SQ SCH (08:11)
[2023-07-27] MEDS: Mupirocin NASAL 2 APPL/1 GM TUBE NAS SCH (08:11)
[2023-07-27] MEDS: INSULIN REGULAR (HUMAN) 100 UNIT/ML IV SCH ×3 (08:11→17:04)
[2023-07-27] MEDS: MICAFUNGIN SODIUM 100 MG in NA CHLORIDE 0.9% 100 ML IV SCH (08:11)
[2023-07-27] MEDS: ZINC OXIDE 20% OINTMENT 60gm TOP SCH (08:12)
[2023-07-27] MEDS: MORPHINE 2 MG/ML SYR IV PRN (08:18)
--- NOTE | 2023-07-27 08:30 | P.PN ---
Date of Service: 07/27/23 Chief Complaint: Pneumonia, Hypoxemia Subjective: Patient's condition worsening, temp 102.2 F, decreased responsiveness, tachypneic, tachycardic. Transferred to ICU overnight. Physical Examination Temp Pulse Resp BP Pulse Ox 101.1 F H 142 H 35 H 142/59 H 96 07/27/23 06:00 07/27/23 06:00 07/27/23 08:18 07/27/23 06:00 07/27/23 08:18 General: Pale, lethargic, decreased responsiveness to verbal and painful sti muli. HEENT: Atraumatic. normocephalic. Respiratory: Diminished. Trach, on t-collar 8LPM. Tachypneic. Cardiovascular: Tachycardic. Gastrointestinal: Normal bowel sounds, Soft and benign. PEG tube. MSK/Integumentary: Pressure ulcer sacrum stage II. Left BKA. Neurological: Abnormal speech, Abnormal strength Urinary: chronic ortega catheter. Laboratory Data - Reviewed Microbiology Data - Reviewed Imagings Data: - Reviewed Medication List: Reviewed Assessment and Plan Problem List Sepsis secondary to complicated urinary tract infection vs pneumonia Acute on Chronic CKD Microcytis anemia Diabetes Mellitus type I Hypertension Hypothyroidism History CVA History of MDR Infections Sepsis secondary to CAUTI / aspiration pneumonia - Blood cultures 06/21: No growth to date - Negative Influenze A&B. Negative covid. - Wound culture 06/21: Morganella morganii and Klebsiella oxytoca - Multidrug resistant - Urine culture 07/22: presumptive Jeanne albicans - Due to temperature spike, repeat blood cultures drawn 07/25. Pending results. - XR Chest 07/26: " Persistent patchy left airspace opacities concerning for pneumonia" - Zosyn switched to Meropenem on 07/26 Leukocytosis 24 hour Tmax 102.2 F Recommendations - presumtive Jeanne albicans in urine: Continue Micafungin IV for 14 days (07/25/23 to 08/08/23) - Continue meropenem for now. - Pressure offloading measures: turn patient q2h, wedge pillows, low air-loss mattress. Sacral wound care per wound care team. - Trach care. Ortega catheter care. - Continue to monitor WBC and fever trends. - CKD: Renally dose medications. Nephrology on case. - Strict blood glucose control Pending possible hospice arrangements. Case discussed with Flavio Merrill
[2023-07-27] MEDS ORDERED: VANCOMYCIN 1.5 GM in NA CHLORIDE 0.9% 500 ML IVPB SCH ×4 (09:00)
--- NOTE | 2023-07-27 09:22 | P.PN ---
Subjective Date of Service: 07/27/23 Chief Complaint: Pneumonia, Hypoxemia Patient is resting awake, remains febrile, ID consulted, Responding appropriately to verbal, Patient with a trach, and PEG, Vital signs stable Physical Exam General: Oriented x3 HEENT: Atraumatic, Normocephalic Neck: Supple, 2+ carotid pulse no bruit Respiratory: trach/trach collar, moderate amount secretions, uses yanker, Normal air movement Cardiovascular: No edema, Regular rate/rhythm Capillary refill: <2 Seconds Gastrointestinal: Normal bowel sounds, Soft and benign, Other (PEG tube in situ dry and intact) Musculoskeletal: Other (left BKA) Integumentary: No rashes, No breakdown Neurological: Other (Unable to speak, with the tracheostomy) <Saige Daniel - Last Filed: 07/27/23 09:28> Date of Service: 07/27/23 <Ace Hunter - Last Filed: 07/27/23 12:33> Review of Systems PER HPI <Saige Daniel - Last Filed: 07/27/23 09:28> Physical Examination - Vital Signs Temperature: 101.1 F Blood Pressure: 109/51 Pulse: 132 Respirations: 34 Pulse Ox (%): 93 - Studies Microbiology Data (last 24 hrs): 07/21/23 11:35 Blood - Blood Aerobic Blood Culture - Final No growth in 5 days. 07/21/23 11:35 Blood - Blood Anaerobic Blood Culture - Final No growth in 5 days. 07/21/23 11:15 Blood - Blood Aerobic Blood Culture - Final No growth in 5 days. 07/21/23 11:15 Blood - Blood Anaerobic Blood Culture - Final No growth in 5 days. 07/21/23 22:00 Wound - Sacral Gram Stain - Final 07/21/23 22:00 Wound - Sacral Culture & Sensitivity - Final Morganella Morganii Klebsiella Oxytoca 07/22/23 07:05 Clean Catch Urine [place] Count - Final >100,000 CFU/ML. 07/22/23 07:05 Clean Catch Urine - Final <Saige Daniel - Last Filed: 07/27/23 09:28> - Studies Microbiology Data (last 24 hrs): 07/21/23 11:35 Blood - Blood Aerobic Blood Culture - Final No growth in 5 days. 07/21/23 11:35 Blood - Blood Anaerobic Blood Culture - Final No growth in 5 days. 07/21/23 11:15 Blood - Blood Aerobic Blood Culture - Final No growth in 5 days. 07/21/23 11:15 Blood - Blood Anaerobic Blood Culture - Final No growth in 5 days. 07/21/23 22:00 Wound - Sacral Gram Stain - Final 07/21/23 22:00 Wound - Sacral Culture & Sensitivity - Final Morganella Morganii Klebsiella Oxytoca 07/22/23 07:05 Clean Catch Urine [place] Count - Final >100,000 CFU/ML. 07/22/23 07:05 Clean Catch Urine - Final <Ace Hunter - Last Filed: 07/27/23 12:33> Assessment And Plan - Plan Assessment plan sepsis without shock-acute Acute hypoxic respiratory failure secondary recurrent aspiration pneumonia Pulmonary consulted, meropenem, nebs, O2 keep sats greater than 92% Leukocytosis 15.20->17.60->23.0 ID consulted 07/25 (presumptive possible aspiration pna) WBC 07/27 WBCs 21.40,-> 19.30 improving Blood cultures, wound cultures, urine cultures Sputum culture positive for Pseudomonas Urine, wound culture 3+ yeast, micafungin added 07/25 greater than 100,000 CFU Wound culture reports she has gram-negative rods Vancomycin, Zosyn, 07/25 Infectious disease consulted wbc elevated worse today 23.20 left shift 91.1 07/25 ID recommends x 14 days micafungin +yeast culture wound, urine 07/26 meropenem 500 twice daily added Acute cystitis Urinalysis is significantly concerning. Though patient has a chronic indwelling Simmons and this can be deemed a confounder. Repeat cultures to be taken. Will adjust antibiotic therapy based on cultures. Acute on chronic kidney injury CKD stage IV BUN 62->54 creatinine 2.23, 07/25 BUN 53, CR 2.60, BUN 69/4.14->72/ 4.67, 07/25 500 cc bolus x 1, 07/27 will give 2L for worsening KATLYN, neph following Microcytic anemia 11.0 33.7 Trend H&H Permanent tracheostomy complaining shortness of breath and low oxygen saturation since yesterday. He was recently discharged after hospital stay and when he returned to residential facility he was deemed to be stable for level of care at the facility so he was returned to the hospital. The spouse at bedside reports that he had blockage of the trachesostomy yesterday and the tube was replaced in the [facility]. 99% on trach collar on humidified O2 wanted to keep send 1 manage not interested in acute placement back centimeters blood clot 07/25 request trach collar changed, order sent to respiratory Permanent G-tube placement Tube feedings, hold feed tubes ED with nausea vomiting Hypoglycemic BS are stable; Type 1 diabetes: Continue statin therapy for glucose control and tube feeds as per nutrition's recommendation. Hypertension: Will continue to monitor vital signs per unit protocol and continue outpatient prescribe antihypertensive medications. Severe peripheral vascular disease Continue statin therapy. Anemia of chronic illness: Will continue to monitor hemoglobin level closely. Will transfuse for hemoglobin less than 7.0. Hypothyroidism: Continue levothyroxine therapy. Prophylaxis: Heparin for DVT prophylaxis. Code status: Full code. Disposition: We will treat his multiple medical issues and he will be discharged once and he is deemed clinically stable. Discharge Plan: Intermediate - Code Status/Comfort Care Code Status: Do Not Attempt Resuscitat Physician Review: Patient Assessed, Agree with Above Assessment and Plan Critical Care: No Time Spent Managing PTS Care (In Minutes): 55 <Saige Daniel - [place] Filed: 07/27/23 09:28> Physician Review: Patient Assessed, Agree with Above Assessment and Plan Physician Review Additional Text: I have personally seen and evaluated Mr. Douglas Carrillo. I reviewed the notes and assessments performed by Saige Daniel APRN. I independently performed my own history and physical examination. I agree with the assessment and plan as outlined in her note. I concur with her documentation of Mr. Carrillo. This morning, he appears more lethargic. He appears tachycardic, tachypneic, and his prognosis is poor. He has multi-drug resistant infections with Morganella Morganii and Klebsiella Oxytoca. There are ongoing [id number] discussions with his mother, Ms. Toscano (who is his MPOA). She states that she is leaning towards hospice, but will discuss with his father before making a final decision. All questions have been answered to the best of my ability. Ace Hunter M.D. 07/27/23 12:32 <Ace Hunter - Last Filed: 07/27/23 12:33>
[2023-07-27] MEDS ORDERED: NA CHLORIDE 0.9% 1,000 ML IV SCH (10:00)
[2023-07-27] MEDS ORDERED: WATER FOR INJ,STERILE 1,000 ML with NA BICARB 8.4% 150 MEQ IV SCH ×2 (10:00)
--- NOTE | 2023-07-27 11:58 | P.CNS ---
Date of Consult: 07/27/23 Reason for Consult: Respiratory failure pneumonia Chief Complaint: Pneumonia, Hypoxemia History of Present Illness: Patient is 57 years of age with a history of trach recurrent admissions for pneumonia transferred to the ICU with hypoxemia and fever unresponsive tachypneic Allergies neostigmine Allergy (Verified 07/21/23 22:21) Itching/Hives/Rash Sulfa (Sulfonamide Antibiotics) Allergy (Verified 07/21/23 22:21) Itching/Hives/Rash Home Medications: Amlodipine [Norvasc*] 1 tab FT DAILY 10/22/22 Atorvastatin Calcium [Lipitor*] 1 tab FT BEDTIME 10/22/22 Budesonide [Pulmicort*] 2 ml IH Q12H 10/22/22 Lactulose [Enulose] 30 ml FT Q6H PRN 10/22/22 Levothyroxine Sodium 1 tab FT DAILY 10/22/22 Ipratropium/Albuterol Sulfate [Iprat-Albut 0.5-3(2.5) mg/3 ml] 3 ml IH Q6HP PRN 12/16/22 carvediloL [Coreg*] 1 tab FT BID 01/25/23 Ipratropium [place] 0.02 % IH Q12HR 06/04/23 Melatonin [Melatonin*] 3 mg FT BEDTIME 06/04/23 Scopolamine Hydrobromide [Transderm-Scop*] 1 pat TD Q3D@0900 pat 06/12/23 Albuterol Neb [Proventil 0.083% Neb Soln] 2.5 mg NEB Q6H PRN 07/09/23 Aspirin 81 mg FT DAILY 07/09/23 Baclofen 1 tab FT TID 07/09/23 Hydroxyzine HCl [Atarax] 1 tab FT Q6H PRN 07/09/23 Na Bicarb Tab [Sodium Bicarb 325 MG Tab*] 650 mg FT DAILY 07/09/23 Ondansetron HCl 1 tab FT Q6H PRN 07/09/23 Pantoprazole [Protonix Tab*] 1 tab FT BID 07/09/23 Polyethylene Glycol 3350 [Miralax] 1 packet FT DAILY 07/09/23 Potassium Chloride 7.5 ml FT DAILY 07/09/23 Sucralfate [Carafate] 10 ml FT QID 07/09/23 Suplena [Suplena Carb Steady*] 237 ml FT Q6H 07/09/23 Ticagrelor [Brilinta*] 1 tab FT BID 07/09/23 Escitalopram [Lexapro*] 10 mg FT DAILY tab 07/11/23 Ferrous Sulfate [Ferrous Sulfate] 7.5 ml FT Q12H 07/11/23 levoFLOXacin [Levaquin*] 750 mg PO DAILY 7 Days #7 tab 07/11/23 Albuterol Neb [Proventil 0.083% Neb Soln] 2.5 mg NEB Q6HP PRN amp 07/17/23 Insulin Glargine,Hum.rec.anlog [Lantus] 5 unit SQ BREAKFAST #10 ml 07/17/23 Vinnie [Vinnie*] 1 pkt PO BID 07/17/23 predniSONE [Deltasone] 20 mg PO DAILY #5 tab 07/17/23 - Past Medical/Surgical History Diabetic: Yes -: DM I -: CKD stage 4 with Proteinuria (Dr. Edmonds/ Dr. Howard) -: Diastolic CHF -: HTN -: HLD -: CAD/ PAD -: History TIA/CVA -: Anemia -: BPH -: COPD -: Hypothyroidism -: NSTEMI -: Appendectomy -: Left below-knee amputation -: Multiple surgeries to the right lower extremity -: Right foot all toes amputated- february 2019 -: Trach -: PEG Psychosocial/ Personal History: Patient lives at [facility]. - Family History Mother Medical History: Cancer - Social History Smoking Status: Unknown if ever smoked Alcohol use: No CD- Drugs: No Caffeine use: Yes Place of Residence: [facility] Review of Systems is unable to be obtained Physical Examination Temp Pulse Resp BP Pulse Ox 101.1 F H 125 H 30 H 107/57 L 95 07/27/23 09:29 07/27/23 11:00 07/27/23 11:00 07/27/23 11:00 07/27/23 11:00 General: Unresponsive Respiratory: Diminished Cardiovascular: No edema, Regular rate/rhythm - Problems (1) Respiratory failure Current Visit: Yes Status: Acute Plan: Patient is 57 years of age is transferred to the floor with the respiratory distress hypoxemia has a pneumonia with fever only on meropenem and micafungin add vancomycin patient is doing a DNR agree with hospice care prognosis is very poor currently febrile labs reviewed white count is elevated he is in chronic renal failure renal function is worsened patient has multiorgan failure treated with withdrawal of care as patient's family agreeable Qualifiers: Chronicity: acute on chronic
[2023-07-27] MEDS ORDERED: VANCOMYCIN 1 GM in NA CHLORIDE 0.9% 250 ML IVPB SCH (12:00)
--- NOTE | 2023-07-27 12:03 | P.PN ---
Nephrology note (S) Condition worsened over the past 24h, now in ICU, still spiking temps, tachy, tachypnec, O2 requirements higher, renal function worse (O) Vitals, medications, blood work and imaging reviewed in the chart. General: Thin, frail, chronically ill appearing, pale HEENT: Atraumatic Neck: Supple. Trach collar Respiratory: b/l air entry, reduced BS at bases, tachypnec Cardiovascular: No edema, tachy Gastrointestinal: Soft and benign, Non-distended. PEG present, ortega present Musculoskeletal: Muscle mass loss Left BKA Integumentary: No diffuse rashes Blood work reviewed in the chart. Conclusions/Impression: Stage III ARF now with Cr level > 4 mg/dl on underlying CKD IV with proteinuria -Renal function has worsened with sepsis, poor candidate for [employer]T [employer] and pt's mother (decision maker) agrees that pt would not want (based on prior experience with ARF episode) and that his overall condition has declined over the past year with numerous hospitalizations and latest illness. Pt is appropriate for palliative care switch and she is awaiting her to arrive. Metab acidosis, hyperchloremic -Worsened bicarb deficit, bicarb drip ordered Acute on chronic resp failure -Worsened PNA. Hx of Pseudomonas/MDR organism growth, management per IM/ID Fevers unspecified. Sepsis unspecified organisms. -Bolus crystalloids/colloids if needed, review Abx regimen with ID in the setting of MDR organism, recommended switching Zosyn to Meropenem
[2023-07-27 12:05] LABS: Magnesium 2.3 mg/dL (1.6-2.4); Potassium 4.5 mEq/L (3.5-5.1)
--- NOTE | 2023-07-27 13:16 | P.DS ---
Admission Date: 07/22/23 Discharge Date: 07/27/23 Reason for Admission: Pneumonia, Hypoxemia Brief History of Present Illness: 57-year-old male patient with medical history significant for diabetes type 1, hypertension, hyperlipidemia, renal failure status tracheostomy, peripheral vas cular disease, status BKA, hypothyroidism presented to the emergency room with complaining shortness of breath and low oxygen saturation since yesterday. He was recently discharged after hospital stay and when he returned to residential facility he was deemed to be stable for level of care at the facility so he was returned to the hospital. The spouse at bedside reports that he had blockage of the trachesostomy yesterday and the tube was replaced in the detention. Negative for chest pain or discomfort, fever, chills, diarrhea, nausea, vomiting. Physical Exam General: Oriented x3 HEENT: Atraumatic, Normocephalic Neck: Supple, 2+ carotid pulse no bruit Respiratory: trach/trach collar, moderate amount secretions, uses yanker, Normal air movement Cardiovascular: No edema, Regular rate/rhythm Capillary refill: <2 Seconds Gastrointestinal: Normal bowel sounds, Soft and benign, Other (PEG tube in situ dry and intact) Musculoskeletal: Other (left BKA) Integumentary: No rashes, No breakdown Neurological: Other (Unable to speak, with the tracheostomy) Hospital Course: Plan to discharge with hospice for acute on chronic respiratory failure secondary to aspiration pneumonia, worsened by multidrug resistant antibiotics. Spoke with patient's power of director nursing service his mother Dorcas, father agreed on plan of care. Assessment plan sepsis without shock-acute Acute hypoxic respiratory failure secondary recurrent aspiration pneumonia Pulmonary consulted, meropenem, nebs, O2 keep sats greater than 92% Leukocytosis 15.20->17.60->23.0 ID consulted 07/25 (presumptive possible aspira tion pna) WBC 07/27 WBCs 21.40,-> 19.30 improving Blood cultures, wound cultures, urine cultures Sputum culture positive for Pseudomonas Urine, wound culture 3+ yeast, micafungin added 07/25 greater than 100,000 CFU Wound culture reports she has gram-negative rods Vancomycin, Zosyn, 07/25 Infectious disease consulted wbc elevated worse today 23.20 left shift 91.1 07/25 ID recommends x 14 days micafungin +yeast culture wound, urine 07/26 meropenem 500 twice daily added Acute cystitis Urinalysis is significantly concerning. Though patient has a chronic indwelling Simmons and this can be deemed a confounder. Repeat cultures to be taken. Will adjust antibiotic therapy based on cultures. Acute on chronic kidney injury CKD stage IV BUN 62->54 creatinine 2.23, 07/25 BUN 53, CR 2.60, BUN 69/4.14->72/ 4.67, 07/25 500 cc bolus x 1, 07/27 will give 2L for worsening KATLYN, neph following Microcytic anemia 11.0 33.7 Trend H&H Permanent tracheostomy complaining shortness of breath and low oxygen saturation since yesterday. He was recently discharged after hospital stay and when he returned to residential facility he was deemed to be stable for level of care at the facility so he was returned to the hospital. The spouse at bedside reports that he had blockage of the trachesostomy yesterday and the tube was replaced in the detention. 99% on trach collar on humidified O2 wanted to keep send 1 manage not interested in acute placement back centimeters blood clot 07/25 request trach collar changed, order sent to respiratory Permanent G-tube placement Tube feedings, hold feed tubes ED with nausea vomiting Hypoglycemic BS are stable; Type 1 diabetes: Continue statin therapy for glucose control and tube feeds as per nutrition's recommendation. Hypertension: Will continue to monitor vital signs per unit protocol and continue outpatient p rescribe antihypertensive medications. Severe peripheral vascular disease Continue statin therapy. Anemia of chronic illness: Will continue to monitor hemoglobin level closely. Will transfuse for hemoglobin less than 7.0. Hypothyroidism: Continue levothyroxine therapy. <Saige Daniel - Last Filed: 07/27/23 13:23> Admission Date: 07/22/23 Discharge Date: 07/28/23 <Ace Hunter - Last Filed: 07/28/23 07:29> Disposition: HOSPICE-MEDICAL FACILITY Discharge Condition: SERIOUS Vital Signs/Physical Exam: Temp Pulse Resp BP Pulse Ox 101.1 F H 125 H 30 H 107/57 L 95 07/27/23 09:29 07/27/23 11:00 07/27/23 11:00 07/27/23 11:00 07/27/23 11:00 Laboratory Data at Discharge: WBC 19.30 thou/uL (4.3-10.9) H 07/27/23 04:17 Hgb 9.9 g/dL (13.6-17.9) L 07/27/23 04:17 Hct 32.2 % (39.6-49.0) L 07/27/23 04:17 Plt Count 377 thou/uL (152-406) 07/27/23 04:17 PT 12.2 SECONDS (9.5-12.5) 07/21/23 10:42 INR 1.11 07/21/23 10:42 APTT 34.3 SECONDS (24.3-36.9) 07/21/23 10:42 Sodium 144 mEq/L (136-145) 07/27/23 11:34 Potassium 4.5 mEq/L (3.5-5.1) 07/27/23 11:34 BUN 78 mg/dL (7-18) H 07/27/23 11:34 Creatinine 5.14 mg/dL (0.70-1.30) H 07/27/23 11:34 Glucose 369 mg/dL (74-106) H 07/27/23 11:34 Magnesium 2.3 mg/dL (1.6-2.4) 07/27/23 11:34 Total Bilirubin 0.2 mg/dL (0.2-1.0) 07/21/23 10:42 AST 16 U/L (15-37) 07/21/23 10:42 ALT 19 U/L (16-61) 07/21/23 10:42 Alkaline Phosphatase 111 U/L (45-117) 07/21/23 10:42 <Saige Daniel - Last Filed: 07/27/23 13:23> Vital Signs/Physical Exam: Temp Pulse Resp BP Pulse Ox 99.5 F 101 H 25 H 103/61 95 07/27/23 15:59 07/27/23 15:59 07/27/23 15:59 07/27/23 15:59 07/27/23 15:59 Laboratory Data at Discharge: WBC 19.30 thou/uL (4.3-10.9) H 07/27/23 04:17 Hgb 9.9 g/dL (13.6-17.9) L 07/27/23 04:17 Hct 32.2 % (39.6-49.0) L 07/27/23 04:17 Plt Count 377 thou/uL (152-406) 07/27/23 04:17 PT 12.2 SECONDS (9.5-12.5) 07/21/23 10:42 INR 1.11 07/21/23 10:42 APTT 34.3 SECONDS (24.3-36.9) 07/21/23 10:42 Sodium 144 mEq/L (136-145) 07/27/23 11:34 Potassium 4.5 mEq/L (3.5-5.1) 07/27/23 11:34 BUN 78 mg/dL (7-18) H 07/27/23 11:34 Creatinine 5.14 mg/dL (0.70-1.30) H 07/27/23 11:34 Glucose 369 mg/dL (74-106) H 07/27/23 11:34 Magnesium 2.3 mg/dL (1.6-2.4) 07/27/23 11:34 Total Bilirubin 0.2 mg/dL (0.2-1.0) 07/21/23 10:42 AST 16 U/L (15-37) 07/21/23 10:42 ALT 19 U/L (16-61) 07/21/23 10:42 Alkaline Phosphatase 111 U/L (45-117) 07/21/23 10:42 <Ace Hunter - Last Filed: 07/28/23 07:29> <Saige Daniel - Last Filed: 07/27/23 13:23> <Ace Hunter - Last Filed: 07/28/23 07:29> Home Medications: Albuterol Neb [Proventil 0.083% Neb Soln] 2.5 mg IH BID 07/27/23 Albuterol Neb [Proventil 0.083% Neb Soln] 2.5 mg IH Q6HP PRN 07/27/23 Amlodipine [Norvasc] 10 mg PO DAILY 07/27/23 Aspirin Chewable [Aspirin Chewable*] 81 mg PO DAILY 07/27/23 Atorvastatin Calcium 20 mg PO BEDTIME 07/27/23 Baclofen 10 mg PO TID 07/27/23 Ticagrelor [Brilinta] 90 mg PO BID 07/27/23 Followup: NONE,NONE [Primary Care Provider] -
--- NOTE | 2023-07-27 13:41 | EKG ---
Test Date: 2023-07-21 Test Time: 10:35:45 Wallcovering Texturer: ALP MEASUREMENT RESULTS: Intervals: Rate: 101 LA: 130 QRSD: 80 QT: 340 QTc: 440 [place] Bottom: P: 64 LA: 130 QRS: 79 T: 48 INTERPRETIVE STATEMENTS: Sinus tachycardia Low voltage QRS Borderline ECG Compared to ECG 07/08/2023 05:36:43 Low QRS voltage now present Sinus rhythm no longer present Electronically Signed On 07-27-23 13:28:22 FIELD REPORTER by Jimbo Elliott
[2023-07-27] MEDS ORDERED: Meropenem 500 MG in NA CHLORIDE 0.9% 100 ML IV SCH (14:00)
[2023-07-27 16:04] VITALS: BP 103/61; TEMP 99.5
[2023-07-29] MEDS ORDERED: VANCOMYCIN 1 GM in NA CHLORIDE 0.9% 250 ML IVPB SCH (09:00)
== END 2023-07-27 19:34 | disposition hospice, inpatient (51) | DRG 871 ==
LOC: ER 10:22 → ERHOLD 14:51 → 2ND 21:07 → OBSVTOIN 07-22 15:43 → 3RD-ICU 07-26 19:43
PROVIDERS: ADMIT Hospitalist; ATTEND Internal Medicine
DX: A41.9 Sepsis, unspecified organism (principal); J69.0 Pneumonitis due to inhalation of food and vomit; J96.21 Acute and chronic respiratory failure with hypoxia; T83.511A Infection and inflammatory reaction due to indwelling urethral catheter, initial encounter; B37.41 Candidal cystitis and urethritis; N17.9 Acute kidney failure, unspecified; I13.0 Hypertensive heart and chronic kidney disease with heart failure and stage 1 through stage 4 chronic kidney disease, or unspecified chronic kidney disease; N18.4 Chronic kidney disease, stage 4 (severe); I50.32 Chronic diastolic (congestive) heart failure; E87.0 Hyperosmolality and hypernatremia; R64 Cachexia; E87.20 Acidosis, unspecified; R65.20 Severe sepsis without septic shock; Z86.73 Personal history of transient ischemic attack (TIA), and cerebral infarction without residual deficits; E10.22 Type 1 diabetes mellitus with diabetic chronic kidney disease; E10.65 Type 1 diabetes mellitus with hyperglycemia; Z79.4 Long term (current) use of insulin; K21.9 Gastro-esophageal reflux disease without esophagitis; I25.10 Atherosclerotic heart disease of native coronary artery without angina pectoris; Z93.1 Gastrostomy status; J44.9 Chronic obstructive pulmonary disease, unspecified; E03.9 Hypothyroidism, unspecified; Z89.512 Acquired absence of left leg below knee; I73.9 Peripheral vascular disease, unspecified; N40.0 Benign prostatic hyperplasia without lower urinary tract symptoms; I25.2 Old myocardial infarction; Z90.49 Acquired absence of other specified parts of digestive tract; Z93.0 Tracheostomy status; L89.152 Pressure ulcer of sacral region, stage 2; Z68.21 Body mass index [BMI] 21.0-21.9, adult; D64.9 Anemia, unspecified
CPT/HCPCS: 36415; 36600; 49465; 71045; 80048; 80053; 80202; 81001; 82947; 83605; 83735; 83880; 84145; 84484; 85025; 85610; 85730; 87040; 87070; 87077; 87086; 87088; 87186; 87205; 87804; 87811; 93005; 94640; 96365; 96366; 99285; G0378; J0692; J0696; J1644; J1815; J2248; J2270; J2405; J2543; J2765; J7030; J7040; J7050; J7613; J7634; J7644

== ENCOUNTER 2023-07-27 19:42 | Inpatient (IN) | payer BC, OTHER ==
[2023-07-27] MEDS ORDERED: MORPHINE 4 MG/ML SYR IV PRN (20:28)
[2023-07-27] MEDS ORDERED: LORazepam 2 MG/ML VIAL IV PRN (20:30)
[2023-07-27] MEDS ORDERED: ONDANSETRON 4 MG/2 ML VIAL IV PRN (20:32)
[2023-07-27] MEDS ORDERED: SCOPOLAMINE HYDROBROMIDE PATCH TD PRN (20:35)
[2023-07-27] MEDS ORDERED: BISACODYL 10 MG RECTAL SUPP PR PRN (20:38)
[2023-07-27] MEDS ORDERED: ACETAMINOPHEN 650MG/RECT SUPP PR PRN (20:39)
[2023-07-27] MEDS: MORPHINE 4 MG/ML SYR IV SCH (21:00)
[2023-07-28] MEDS: MORPHINE 4 MG/ML SYR IV SCH ×6 (01:00→21:09)
[2023-07-28 04:28] VITALS: BMI 20.4
[2023-07-28] MEDS: LORazepam 2 MG/ML VIAL IV SCH ×4 (06:00→17:16)
[2023-07-29] MEDS: MORPHINE 4 MG/ML SYR IV SCH ×6 (01:15→21:00)
[2023-07-29] MEDS: LORazepam 2 MG/ML VIAL IV SCH ×4 (06:07→18:00)
[2023-07-29 20:32] VITALS: O2SAT 92
[2023-07-29 22:03] VITALS: TEMP 99.3
[2023-07-30] MEDS: MORPHINE 4 MG/ML SYR IV SCH ×3 (01:00→07:30)
[2023-07-30] MEDS: LORazepam 2 MG/ML VIAL IV SCH ×2 (06:02)
[2023-07-30 09:28] VITALS: BP 61/33
== END 2023-07-30 12:06 | disposition expired | DRG 951 ==
LOC: 3RD-ICU 19:42 → 4TH 07-28 13:08
PROVIDERS: ADMIT Internal Medicine Hematology & Oncology; ATTEND Internal Medicine Hematology & Oncology
DX: Z51.5 Encounter for palliative care (principal)